=== PATIENT | female | born 1955 | race Caucasian/White ===

== ENCOUNTER → 2019-04-21 14:33 | Outpatient (POV) | payer MEDICARE, SELFPAY | DX: Z00.00 Encounter for general adult medical examination without abnormal findings (principal) ==

== ENCOUNTER 2023-06-20 07:58 | Observation (INO) | payer MEDICARE, SELFPAY ==
[2023-06-20] VITALS (11 sets, daily range): BP systolic 113–135; BP diastolic 60–71; PULSE 49–80; RESP 14–18; TEMP 36.7–36.8; O2SAT 95–100; BMI 43.9; BMI 43.7
--- NOTE | 2023-06-20 08:05 | XR_ITS ---
FINAL REPORT CLINICAL HISTORY: dyspnea COMPARISON: 06/07/2019 FINDINGS: SINGLE-VIEW CHEST The heart size is normal. The mediastinum is normal. The lungs are clear. There is no pneumothorax. IMPRESSION: No acute cardiopulmonary process. Reviewed, Interpreted and Dictated by Sung Ramos III, MD Transcribed by Annmarie Howard Authenticated and [facility]
--- NOTE | 2023-06-20 08:09 | HMH.EDGENADL ---
Discharge Plan Disposition Chief Complaint: PAIN Prescriptions Prescriptions: No Action Unobtainable Referrals Follow up/Referrals: Provider,Referral, [Primary Care Provider] - See instructions Clinical Impressions Clinical Impression: Hypoglycemia, Bug bites, Hip pain, right, Chronic malaise, Generalized weakness, Degenerative joint disease of both hips Discharge ED Provider: Shannan Cramer General Adult HPI General Chief complaint: PAIN Stated complaint: Pain Time Seen by Provider: 06/20/23 08:05 History of Present Illness HPI narrative: Patient is a 68-year-old female brought in by EMS. Because initially for altered mental status she was found to be hypoglycemic with a blood sugar of 37 they gave her glucagon and dextrose and her blood sugar resolved as well as her mental status. They state that her home was very poorly kept And that there were bedbugs and bugs extensively throughout the house. The patient states that for the last few weeks she has had dysuria and urgency as well as a cough some chills and has not felt well the point of needing to take Tylenol. She states that she has been largely bedbound and having difficult time taking care of her self. She also states she has had some dizziness and has had significant increase in urine output. Overall she states right now she does feel very lethargic and weak. She additionally complains of right hip pain no injuries that she knows of. Related Data Home Medications Medication Instructions Recorded Confirmed Unobtainable 06/20/23 06/20/23 Allergies Allergy/AdvReac Type Severity Reaction Status Date / Time naproxen [From NAPROSYN] Allergy Intermediate I-RASH Verified 06/07/19 11:17 cefaclor [From [facility]] Allergy Unknown Verified 06/07/19 11:17 ampicillin Allergy Verified 06/20/23 08:16 [facility] Disclaimer: The information contained in this section may have been updated after the patient was seen, as this information can be updated by other users. Social History Smoking Status: Former smoker alcohol intake: never current occupational status: other Travel in the last 8 weeks: None ROS Obtained: Yes All systems reviewed & no additional complaints except as documented Physical Exam General General appearance: alert Chest Chest inspection: Present normal inspection and symmetric chest wall rise Respiratory Respiratory exam: Present normal lung sounds bilaterally; Absent respiratory distress Cardiovascular Cardiovascular exam: Present regular rate; Absent tachycardia Abdominal Exam Abdominal exam: Present soft; Absent distention or tenderness Extremities Exam Extremities exam: Present other (Pain with range of motion of the right hip and internal/external rotation) Neurological Exam Neurological exam: Present alert and oriented X3 Skin Skin exam: Present other (Superficial skin excoriations from innumerable bug bites throughout her entire body) Medical Decision Making Jorge Inquiry Pt receiving controlled substance: No Jorge was queried for this patient: No Vital Signs: 06/20/23 07:58 06/20/23 08:12 06/20/23 08:35 Temperature 98.2 F Temperature Source Rectal Pulse Rate 55 L Pulse Rate [Radial] 62 Respiratory Rate 18 18 Blood Pressure 115/60 132/67 Blood Pressure [Right Arm] 115/60 Blood Pressure Mean 78 86 Blood Pressure Mean [Right Arm] 78 Blood Pressure Source [Right Arm] Automatic Cuff Blood Pressure Position [Right Arm] Sitting 02 Sat by Pulse Oximetry 97 98 Oxygen Delivery Method Room Air 06/20/23 09:00 06/20/23 09:30 06/20/23 10:00 Temperature Temperature Source Pulse Rate 61 59 L 64 Pulse Rate [Radial] Respiratory Rate 18 16 Blood Pressure 135/68 131/63 131/70 Blood Pressure [Right Arm] Blood Pressure Mean 84 88 Blood Pressure Mean [Right Arm] Blood Pressure Source [Right Arm] Blood Pressure Position [Right Arm] 02 Sat by Pulse Oxi
--- NOTE | 2023-06-20 08:11 | XR_ITS ---
FINAL REPORT CLINICAL HISTORY: right hip pain FINDINGS: Right hip Three views were obtained. There is no acute fracture or dislocation. There is severe degenerative changes of both hips. There is chronic calcification adjacent to the greater trochanter. IMPRESSION: Degenerative and chronic appearing findings. Reviewed, Interpreted and Dictated by Sung Ramos III, MD Transcribed by Annmarie Howard Authenticated and [facility]
[2023-06-20 08:12] LABS: Basophils % 0.1 % (0.1-2.0); Eosinophils % 0.3 % (0.1-12.0); Hematocrit 36.1 % (37.0-47.0); Hemoglobin 11.9 g/dL (12.2-16.2); Lymphocytes # 0.8 K/mm3 (0.7-4.5); Lymphocytes % 6.3 % (10-50); Mean Corpuscular HGB Conc 32.8 g/dL (31.8-35.4); Mean Corpuscular Hemoglobin 29.1 pg (27.0-31.2); Mean Corpuscular Volume 88.7 fl (81-99); Mean Platelet Volume 8.1 fl (7.4-10.4); Monocytes # 0.5 K/mm3 (0.1-1.0); Monocytes % 3.7 % (1.7-9.3); Neutrophils % 89.7 % (37.0-80.0); Platelet Count 233 K/mm3 (142-424); Red Blood Count 4.07 M/mm3 (4.20-5.40); Red Cell Distribution Width 14.5 % (11.5-17.5); White Blood Count 13.4 K/mm3 (4.8-10.8)
--- NOTE | 2023-06-20 08:16 | ECG_ITS ---
APPROVED REPORT Exam: Resting ECG HR:58 bpm ECG Measurements Heart Rate 58 AXES MA 204 P 69 QRSd 92 QRS -45 QT 373 T 41 QTc 370 Conclusion SINUS BRADYCARDIA PATTERN CONSISTENT WITH PULMONARY DISEASE LEFT ANTERIOR FASCICULAR BLOCK [QRS AXIS <= -45, QR IN I, RS IN II] ABNORMAL ECG UNCONFIRMED REPORT Electronically signed by : Irving Fenton MD 06/21/2023 11:03:07
[2023-06-20 08:17] LABS: MANUAL DIFFERENTIAL MANUAL DIFFERENTIAL (MANUAL DIFF)
[2023-06-20 08:19] LABS: Chloride 102 mmol/L (98-107); Potassium 3.4 mmoL/L (3.5-5.1); Sodium 139 mmol/L (136-145)
[2023-06-20 08:22] LABS: Alanine Aminotransferase 25 U/L (12-78); Albumin Level 3.6 g/dl (3.5-5.0); Albumin/Globulin Ratio 1.1 (1.1-1.8); Alkaline Phosphatase 55 U/L (38-126); Anion Gap 13.4 mEq/L (5-15); Aspartate Amino Transferase 26 U/L (14-36); Bilirubin,Total 0.4 mg/dl (0.2-1.3); Blood Urea Nitrogen 26 mg/dl (7-17); Calcium 8.8 mg/dl (8.4-10.2); Carbon Dioxide 27 mmol/L (22.0-30.0); Creatine Kinase 32 U/L (30-135); Creatinine Clearance Estimated 47 mL/min (50-200); Estimated Glomerular Filt Rate 62 ml/min (>60); GFR (African American) 76 ML/MIN (>60); Globulin 3.4 g/dL (1.3-3.2); Glucose 156 mg/dl (74-100); Magnesium 1.2 mg/dl (1.6-2.3)
[2023-06-20 08:30] LABS: Lactic Acid 1.8 mmol/L (0.7-2.1)
[2023-06-20 08:35] LABS: Coronavirus 19, PCR Not Detected (NotDetected); Influenza A, PCR Not Detected (NotDetected); Influenza B, PCR Not Detected (NotDetected)
[2023-06-20 08:35] LABS: Microscopic, Urine URINE MICROSCOPIC (MICROSCOPIC)
[2023-06-20 08:40] LABS: Appearance,Urine CLEAR (Clear); Bilirubin,Urine Negative (Negative); Blood, Urine TRACE-I (Negative); Color,Urine YELLOW (Yellow); Glucose,Urine (UA) Negative (Negative); Ketones,Urine Negative (Negative); Leukocyte Esterase,Urine Negative (Negative); Nitrate,Urine Negative (Negative); Protein,Urine Negative (Negative); Specific Gravity, Urine 1.015 (1.005-1.030); Urobilinogen,Urine 0.2 EU/dl (0.2)
--- NOTE | 2023-06-20 08:46 | PC.NURSE ---
Pt cleaned up with warm wash cloths and hibiclens. Pt placed in clean gown and socks, and provided with warm blankets and pillow. No other needs voiced at this time.
[2023-06-20 09:11] LABS: Lymphocytes % 10 % (10-50); Monocytes % 5 % (2-9); Neutrophils % 85 % (42-76); Platelet Estimate Normal; RBC Morphology Normal; Total Cells Counted 100
--- NOTE | 2023-06-20 09:18 | PC.NURSE ---
called rehab to notify of OT/PT consult
[2023-06-20 09:29] LABS: Bacteria,Urine Trace /lpf; RBC,Urine Occasional #/hpf (0-3); Squamous Epithelial Cell,Urine Occasional #/hpf (0-5); WBC,Urine Occasional #/hpf (0-3)
[2023-06-20 09:30] LABS: Thyroid Stimulating Hormone 0.39 uIU/mL (0.465-4.68); Troponin I < 0.01 ng/ml (0.00-0.034)
--- NOTE | 2023-06-20 09:33 | PC.NURSE ---
Dr. Cramer at BS to update pt on POC
--- NOTE | 2023-06-20 09:36 | PC.NURSE ---
OT and PT at for consult
--- NOTE | 2023-06-20 09:58 | PC.NURSE ---
spoke with care management post pt/ot eval to start placement process.
--- NOTE | 2023-06-20 10:42 | PC.NURSE ---
Called dietary to order a lunch tray for pt
--- NOTE | 2023-06-20 10:58 | HMH.PTEV ---
Physical Therapy Evaluation Rehab PT IP Evaluation Start: 06/20/23 09:16 Freq: ONCE Status: Active Protocol: Document 06/20/23 10:48 MARY (Rec: 06/20/23 10:58 PHORMARILEE [id number]) Subjective/History History History 68 yowf brought to [facility] ED via EMS due to hypoglycemia and AMS. She reports PMH of B LE pain, DM. She reports she lives with her and son , no steps to enter the home, and she is generally independent with all mobility at baseline. She reports, I'm supposed to use a walker to get around, but I have too much stuff to do. She presents in a state of very poor hygeine and reports she has been unable to care for herself at home for several days due to general feeling of beign unwell. Subjective Subjective She reports pain in B hips and back this am, she also reports significant fatigue with all mobility. New diagnosis of cancer in past 12 No months? Rehab PT IP Eval Objective Appearance Patient Behavior Appropriate Patient Orientation Person,Place,Time Difficulty following instructions mild Speech Pattern Clear Ambulation Patient Able to Ambulate Yes Ambulation Observation IP General Gait Pattern Observation Wide Based Gait,Shuffling Step Ambulation Distance (feet) 6 Ambulation Assistive Device Rolling Walker Ambulation Ability Contact Guard/Hand Hold Balance Ability to Arise Unable Sitting Balance Steady, safe Standing Balance Steady, wide stance Dynamic Sitting Balance Ability Fair Dynamic Standing Balance Ability Poor Transfers Bed Transfer Ability Maximum x 2 (75% assist) Chair Transfer Ability Minimal x 2 (25% assist) Sit to Stand Bed Transfer Ability Minimal x 2 (25% assist) Sit to Stand Chair Transfer Ability Moderate x 2 (50% assist) Rehab PT IP prob,goals,plan Problems Date of Evaluation: 06/20/23 Discharge Plan PT Discharge Plan Pt is currently most appropriate for rehab placement due to significant decrease in transfer ability. Without skilled interv
--- NOTE | 2023-06-20 11:05 | HMH.OTEV ---
OT Inpatient Evaluation Rehab OT IP Evaluation Start: 06/20/23 09:57 Freq: ONCE Status: Active Protocol: Document 06/20/23 09:57 VALENTIN (Rec: 06/20/23 11:04 VALENTIN [id number]) Rehab OT IP Assessment Subjective History Pt oriented x 3 on arrival. Pt agreeable to engage in therapy evaluation. Pt brought to ER on this date due to hypoglycemia and AMS. Patient is a 68-year-old female brought in by EMS. Because initially for altered mental status she was found to be hypoglycemic with a blood sugar of 37 they gave her glucagon and dextrose and her blood sugar resolved as well as her mental status. They state that her home was very poorly kept And that there were bedbugs and bugs extensively throughout the house. The patient states that for the last few weeks she has had dysuria and urgency as well as a cough some chills and has not felt well the point of needing to take Tylenol. She states that she has been largely bedbound and having difficult time taking care of her self. She also states she has had some dizziness and has had significant increase in urine output. Overall she states right now she does feel very lethargic and weak. She additionally complains of right hip pain no injuries that she knows of. Prior to being bedbound, pt claims she was able to complete ADLs and IADLs. She did report at times she needed assistance with lower body dressing. However, since she has been ill the past few weeks she has required assistance with everything.
--- NOTE | 2023-06-20 11:34 | PC.NURSE ---
Report given to Brynn on Med Surg.
--- NOTE | 2023-06-20 11:34 | PC.NURSE ---
received report from MATT Kern in ED
--- NOTE | 2023-06-20 11:37 | EXP.HP ---
History of Present Illness *Admission Date: 06/20/23 *Reason for visit:: Hip Pain *History of present illness: This is a 68-year-old female that is brought by EMS to [facility] emergency department for concerns of hip pain. Her past medical history is significant for degenerative joint disease of hips bilaterally, BMI 44, diabetes and HFpEF. She has identified loss of mobility and endorses frailty. The patient has not identified foot drop, falls or injury. EMS identified concerns with social determinants of health upon arrival to her home. Case management and PT were consulted out of the ED. PT identified inability to mobilize. ED imaging identified severe degenerative joint disease of both hips. [facility] Medical History (Updated 06/20/23 @ 13:03 by Erick Redd MD) (HFpEF) heart failure with preserved ejection fraction Cervical cancer Degenerative joint disease of both hips Diabetes mellitus, type 2 History of gastroesophageal reflux (GERD) Hyperlipidemia Hypertension Surgical History (Updated 06/20/23 @ 12:52 by Brynn Tapia RN) History of cholecystectomy Family History (Updated 06/20/23 @ 12:52 by Brynn Tapia RN) Other No significant family history Social History (Updated 06/20/23 @ 10:55 by Shannan Cramer MD) Smoking Status: Former smoker alcohol intake: never current occupational status: other Travel in the last 8 weeks: None Review of Systems Constitutional Constitutional: Reports fatigue and Reports weakness *Cardiovascular Cardiovascular: Denies chest pain and Denies chest pain at rest *Respiratory Respiratory: Denies cough *Gastrointestinal Gastrointestinal: Denies loose stools, Denies nausea and Denies vomiting *Neurologic Neurologic: Reports weakness Endocrine Endocrine: Reports fatigue Meds Home Medications and Allergies Home Medications Medication Instructions Recorded Confirmed Type atorvastatin 20 mg tablet 20 mg PO DAILY Cholesterol 06/20/23 06/20/23 History furosemide 40 mg tablet 40 mg PO DAILY Fluid 06/20/23 06/20/23 History lisinopril 20 mg tablet 20 mg PO DAILY High Blood Pressure 06/20/23 06/20/23 History metformin 500 mg tablet 500 mg PO DAILY Diabetes 06/20/23 06/20/23 History trospium 20 mg tablet 20 mg PO BID Overactive Bladder 06/20/23 06/20/23 History New Prescriptions to Start Prescriptions: Allergies Allergy/AdvReac Type Severity Reaction Status Date / Time naproxen [From NAPROSYN] Allergy Intermediate I-RASH Verified 06/20/23 12:37 cefaclor [From [facility]] Allergy Unknown Verified 06/20/23 12:37 ampicillin Allergy Verified 06/20/23 12:37 Exam Data for Last 24 hours Vital signs and Labs for Last 24 Hours: Temp Pulse Resp BP Pulse Ox O2 Del Method 98.2 F 49 L 14 132/66 97 Room Air 06/20/23 07:58 06/20/23 10:30 06/20/23 10:30 06/20/23 10:30 06/20/23 10:30 06/20/23 10:30 Laboratory Results - last 24 hr 06/20/23 07:58: WBC 13.4 H, RBC 4.07 L, Hgb 11.9 L, Hct 36.1 L, MCV 88.7, MCH 29.1, MCHC 32.8, RDW 14.5, Plt Count 233, MPV 8.1, Neut % (Auto) 89.7 H, Lymph % (Auto) 6.3 L, [place] % (Auto) 3.7, Eos % (Auto) 0.3, Baso % (Auto) 0.1, Neut # (Auto) 12.0 H, Lymph # (Auto) 0.8, [place] # (Auto) 0.5, Eos # (Auto) 0.0, Baso # (Auto) 0.0, Total Counted 100, Neutrophils % (Manual) 85 H, Lymphocytes % (Manual) 10, Monocytes % (Manual) 5, Platelet Estimate Normal, RBC Morphology Normal, Sodium 139, Potassium 3.4 L, Chloride 102, Carbon Dioxide 27, Anion Gap 13.4, BUN 26 H, Creatinine 0.90, Estimated Creat Clear 47, Estimated GFR 62, Est GFR ( Amer) 76, Glucose 156 H, Lactate 1.8, Calcium 8.8, Phosphorus 3.0, Magnesium 1.2 L, Total Bilirubin 0.4, AST 26, ALT 25, Alkaline Phosphatase 55, Total Creatine Kinase 32, Troponin I < 0.01, Total Protein 7.0, Albumin 3.6, Globulin 3.4 H, Albumin/Globulin Ratio 1.1, TSH 0.39 L 06/20/23 08:18: SARS-CoV-2 (PCR) Not detected, Influenza A Untype (PCR) Not detected, Influenza Type B
--- NOTE | 2023-06-20 11:43 | HMH.PHAINT1 ---
Pharmacy Intervention Comments: MEDICATION RECONCILIATION COMPLETED ON PATIENT USING EXTERNAL FILL HISTORY FROM PHARMACY. -YOSEPH CHAMPION, TODDD
--- NOTE | 2023-06-20 12:02 | PC.NURSE ---
arrived by stretcher from ED
[2023-06-20 12:21] LABS: Free T4 (Free Thyroxine) 1.67 ng/dl (0.78-2.19)
[2023-06-20 12:35] LABS: Hemoglobin A1C 5.7 % (4.0-6.0)
--- NOTE | 2023-06-20 13:05 | CA_ITS ---
APPROVED REPORT EXAM: Comprehensive 2D, Doppler, and color-flow Echocardiogram Steam Shovel Operator: Tania Whitehead RVT Ht: 5 ft 4 in Wt: 256lbs BSA: 2.17 BP: 132/66 mmHg Indications: CHF,BRADYCARDIA,HTN,HLD,EX SMOKER,OBESITY,GERD TDS-PT BODY HABITUS 2D Dimensions LVOT 2.03 cm (M/F) 1.5-2.5 LA Volume 62.70 mL LA Volume Index 28.89 mL/m2 (M/F) 16-34 M-Mode Dimensions RVDd 2.05 cm (0.9-2.6) LA Diam 4.55 cm (1.9-4.0) LVDd 5.66 cm (3.5-5.7) Ao Diam 2.92 cm (2.0-3.7) LVDs 3.46 cm (3.5-5.7) IVSd 0.84 cm (0.6-1.1) PWd 0.57 cm (0.6-1.1) EF (Teich) 68.60% FS 38.90% EDV (Teich) 157.50 mL TAPSE 2.15 (<1.7) ESV (Teich) 49.50 mL LV Diastology E Decel Time 170.00 (160-240 msec) E/A Ratio 1.1 MED E' 8.70 (< 7 cm/sec) E'/MED E' Ratio 9.87 (>14) LAT E' 9.30 (<10 cm/sec) E/LAT E' Ratio 9.24 (>14) Aortic Valve LVOT Max 91.00 (70-110 cm/s) LVOT VTI 17.22 cm AoV Peak Jose Luis. 170.00 (50-130 cm/s) AO Peak GR. 11.70 mmHg AO Mean GR. 6.20 (<5 mmHg) AO VTI 38.20 (18-25 cm) NATHALY (VTI) 1.46 (2.5-4.5 cm2) Mitral Valve MV E Max Jose Luis. 86.00 (40-130 cm/s) MV A Velocity 80.00 (40-130 cm/s) E/A Ratio 1.07 MV Decel. Time 170.00 (160-240 ms) MV PHT 50.00 ms Pulmonary Valve PV Peak Velocity 109.00 (50-150 cm/s) Tricuspid Valve TR P. Velocity 243.00 cm/s RAP Estimate 10.00 mmHg RVSP 33.60 mmHg Left Ventricle The left ventricle is normal size. The left ventricular systolic function is normal. The left ventricular ejection fraction is within the normal range. There is normal left ventricular wall thickness. There is normal LV segmental wall motion. The left ventricular diastolic function is normal. LVEF is 55%. Right Ventricle The right ventricle is mildly dilated. The right ventricular systolic function is normal. Atria The left atrium size is normal. The right atrium size is normal. There is no Doppler evidence of interatrial shunt. Aortic Valve The aortic valve is mildly thickened. There is no aortic valvular stenosis. No aortic regurgitation is present. Mitral Valve Mild mitral annular calcification. The mitral valve is mildly thickened. No evidence of mitral valve stenosis. Trace mitral regurgitation. Tricuspid Valve The tricuspid valve leaflets are thin and pliable. Trace tricuspid regurgitation. RVSP is normal. Pulmonic Valve The pulmonary valve is normal in structure. Trace pulmonic regurgitation. Great Vessels The aortic root is normal in size. The ascending aorta is normal in size. IVC is normal in size and collapses >50% with inspiration. Pericardium There is no pericardial effusion. Electronically signed by : Irlanda Winter MD 06/20/2023 18:19:35
--- NOTE | 2023-06-20 13:05 | CT_ITS ---
FINAL REPORT TECHNIQUE: Axial imaging of the lumbar spine was obtained without contrast. Sagittal and coronal reformatted images were also obtained and reviewed. This study was performed with techniques to keep radiation doses as low as reasonably achievable (ALARA). Individualized dose reduction techniques using automated exposure control or adjustment of mA and/or kV according to the patient's size were employed. CLINICAL HISTORY: Gait Disturbance COMPARISON: None FINDINGS: There is no fracture. The vertebral alignment is normal. There is vacuum phenomenon present at the L4-5 and L5-S1 levels..There is no evidence of significant central canal stenosis. T12-L1: An annular bulge is present with osteophytes and mild right neural foraminal narrowing. L1-L2: An annular bulge is present with osteophytes and facet osteoarthropathy. There is mild bilateral neural foraminal narrowing. L2-L3: An annular bulge is present with osteophytes and facet osteoarthropathy. There is mild bilateral neural foraminal narrowing at this level. L3-L4: There is an annular bulge present with osteophytes and facet osteoarthropathy. There is moderate bilateral neural foraminal narrowing at this level. L4-L5: An annular bulge is present with osteophytes and facet osteoarthropathy. There is a left foraminal disc protrusion that produces left L5 nerve root impingement, moderate right, and severe left neural foraminal narrowing. L5-S1: An annular bulge is present with osteophytes and facet osteoarthropathy. There is a left paracentral and foraminal disc protrusion, with left S1 nerve root impingement, and severe bilateral neural foraminal narrowing. IMPRESSION: Multilevel degenerative change, most severe at the L4-5 and L5-S1 levels.. Reviewed, Interpreted and Dictated by Sung Ramos III, MD Transcribed by Jaqueline Carrion Authenticated and [facility]
--- NOTE | 2023-06-20 16:04 | DIET.NUTRFU ---
Spoke to patient today after lunch and she requested chopped meat. She has multiple missing teeth and had a hard time cutting chicken for lunch. According to patient she eats soft food and easily prepared foods at home, soups/sandwich and TV dinners. Patient reported weight loss of 30# in thge past 2wks. Limited history to review. Will monitor po intake during stay. She lives at home with and son who works at night. Son does not help with any of meal prep and just had foot sx and can help with household responsibilities.
--- NOTE | 2023-06-20 16:17 | PC.NURSE ---
16:00 FSBG of 45 in right hand. 50% Dextrose injection 25g given. Recheck of Left hand and the FSBG is 165.
[2023-06-20 16:22] LABS: POC Glucose,Bedside 165 (70-110)
--- NOTE | 2023-06-20 16:25 | CARE MANAGER ---
Addendum entered by [facility] 06/25/23 14:11: Patient stated that she will need a rolling walker at home. Patient information/order will be faxed to [facility]. Addendum entered by [facility] 06/25/23 13:27: Shira w/ [facility] stated that home health services will begin this week for this patient. Addendum entered by [facility] 06/25/23 11:23: [facility] is NOT in network w/ patient's insurance. Patient information/order will be faxed to [facility]. Addendum entered by [facility] 06/25/23 10:19: The plan for this patient is to discharge home today. Patient information/order will be faxed to [facility] (patient preference) once medically stable for discharge. Patient is agreeable w/ discharge plans. Addendum entered by [facility] [place] 06/24/23 09:56: Patient/family are not interested in placement at [facility] or any other facility at this time. After lengthy conversations w/ patient and her the plan is to return back home w/ and family assistance. I did speak w/ patient and regarding home health services and informed them this could potentially be an issue due to insect issues at home. I will attempt to set patient up w/ home health services at time of discharge. Per MD patient could be ready for discharge tomorrow pending repeat lab work. Addendum entered by Roxann [place] 06/23/23 16:23: wrong patient patient's daughter did call regarding discharge questions: I attempted to contact daughter back w/ no answer and full at this time . Addendum entered by Roxann [place] 06/23/23 16:22: Patient's daughter did call regarding discharge questions: I attempted to contact daughter back w/ no answer and full at this time. Addendum entered by Roxann [place] 06/23/23 14:33: Per family request patient information has been faxed to [facility]. Addendum entered by [facility] 06/23/23 10:55: Patient information has been faxed to [facility] per 's request. I have also updated that [facility] has started a precert. 's contact number is [phone]. Addendum entered by Roxann Gee 06/23/23 09:48: Khloe rolle/ [facility] stated that she will start precert this AM. Addendum entered by Roxann Gee 06/23/23 09:42: Barbi rolle/ [facility] stated that she does not have any beds available at this time. Khloe rolle/ [facility] is reviewing referral and will reach out to family this AM. Family expressed an interest in placement at [facility] in [place]: I have left a SAUL rolle/ Sue to return my phone call. Original Note: I met with patient to discuss discharge planning needs today. Patient Choice signed for [facility] and [facility]. I faxed clinical to all facilities. Nino @ [facility] states that they are not in network, Clarisse @ [facility] notified us this afternoon that they were unable to accept. We are still waiting on [facility] and [facility] to let us know of bed availability.
[2023-06-20 20:49] LABS: POC Glucose,Bedside 111 (70-110)
[2023-06-21 04:00] VITALS: BP 126/66; PULSE 71; RESP 17; TEMP 36.8; O2SAT 99; BMI 44.1
--- NOTE | 2023-06-21 04:09 | PC.NURSE ---
Pt is alert and oriented x4 and is currently on RA. Pt has complained of moderate pain this shift, staff have attempted to provide comfort with repositioning and mild to moderate pain relievers this shift. Pt IV was leaking and new IV was started in the right forearm. Pt denies needs and pain at this time.
[2023-06-21 04:37] LABS: POC Glucose,Bedside 144 (70-110)
[2023-06-21 07:38] VITALS: BP 105/53; PULSE 70; RESP 20; TEMP 36.6; O2SAT 96
--- NOTE | 2023-06-21 08:20 | PC.NURSE ---
0818 spoke with Alfred in pharmacy in regards to the medication interaction when Egg allergy was added. (Docusate and Atorvastatin) per Alfred street to proceed with meds, primary RN notified.
[2023-06-21 08:47] LABS: Chloride 108 mmol/L (98-107); Sodium 137 mmol/L (136-145)
[2023-06-21 08:51] LABS: Blood Urea Nitrogen 11 mg/dl (7-17); Calcium 8.7 mg/dl (8.4-10.2); Carbon Dioxide 26 mmol/L (22.0-30.0); Creatinine Clearance Estimated 47 mL/min (50-200); Estimated Glomerular Filt Rate 83 ml/min (>60); GFR (African American) 101 ML/MIN (>60); Glucose 137 mg/dl (74-100); Magnesium 1.9 mg/dl (1.6-2.3)
[2023-06-21 08:58] LABS: Prothrombin Time 10.8 seconds (10.1-12.5)
[2023-06-21 09:08] VITALS: BP 125/69; PULSE 73
--- NOTE | 2023-06-21 09:25 | PC.NURSE ---
we turned and repositioned pt. She is alert and appropriate this am. pure wick in place. pts bottom is pink and intact. redness and excoriation under folds. She has multiple scabs through out her body.
[2023-06-21 09:29] LABS: NT Pro Brain Natriuretic Pep. 255 pg/mL (0-125)
[2023-06-21 10:18] LABS: Basophils % 0.5 % (0.1-2.0); Eosinophils # 0.3 K/mm3 (0.0-0.4); Eosinophils % 3.8 % (0.1-12.0); Hematocrit 33.7 % (37.0-47.0); Hemoglobin 11.3 g/dL (12.2-16.2); Lymphocytes # 2.2 K/mm3 (0.7-4.5); Lymphocytes % 25.2 % (10-50); Mean Corpuscular HGB Conc 33.4 g/dL (31.8-35.4); Mean Corpuscular Hemoglobin 29.5 pg (27.0-31.2); Mean Corpuscular Volume 88.2 fl (81-99); Mean Platelet Volume 8.4 fl (7.4-10.4); Monocytes # 0.7 K/mm3 (0.1-1.0); Monocytes % 7.4 % (1.7-9.3); Neutrophils # 5.6 K/mm3 (1.8-7.8); Neutrophils % 63.1 % (37.0-80.0); Platelet Count 214 K/mm3 (142-424); Red Blood Count 3.82 M/mm3 (4.20-5.40); Red Cell Distribution Width 14.7 % (11.5-17.5); White Blood Count 8.8 K/mm3 (4.8-10.8)
--- NOTE | 2023-06-21 10:19 | EXP.ACUTE.PN ---
Subjective *Date: 06/21/23 *Time: 10:23 Interval history: Patient with no chest pain, nausea or vomiting. Complaining of some mild abdominal discomfort. Has not had a bowel movement since before admission. Medical Exam Vital signs and Labs for Last 24 Hours: Vital Signs Temp Pulse Pulse Resp BP BP Pulse Ox 06/21/23 08:00 06/21/23 09:08 73 125/69 06/21/23 07:38 98 F 70 20 105/53 L 96 06/21/23 06:29 06/21/23 05:00 06/21/23 04:00 98.2 F 71 17 126/66 99 06/21/23 02:36 06/21/23 01:00 06/20/23 22:43 06/20/23 21:00 06/20/23 20:00 06/20/23 19:43 98.3 F 80 17 113/68 95 06/20/23 16:42 06/20/23 16:29 06/20/23 15:46 98.1 F 60 18 126/65 100 06/20/23 13:12 98 06/20/23 13:12 06/20/23 12:23 06/20/23 12:00 98.2 F 62 16 116/71 06/20/23 10:30 49 L 14 132/66 97 O2 Del Method 06/21/23 08:00 Room Air 06/21/23 09:08 06/21/23 07:38 Room Air 06/21/23 06:29 Room Air 06/21/23 05:00 Room Air 06/21/23 04:00 Room Air 06/21/23 02:36 Room Air 06/21/23 01:00 Room Air 06/20/23 22:43 Room Air 06/20/23 21:00 Room Air 06/20/23 20:00 Room Air 06/20/23 19:43 Room Air 06/20/23 16:42 Room Air 06/20/23 16:29 Room Air 06/20/23 15:46 Room Air 06/20/23 13:12 Room Air 06/20/23 13:12 Room Air 06/20/23 12:23 Room Air 06/20/23 12:00 Room Air 06/20/23 10:30 Room Air Intake and Output 06/20/23 06/21/23 06/21/23 23:59 07:59 15:59 Intake Total 360 / 770 780 / 780 Output Total 800 / 1550 800 / 800 Balance -440 / -780 - Intake: Intake, Oral Amount 360 / 720 780 / 780 Output: Output, Urine Amount 800 / 1550 800 / 800 Other: Number of Voids 0 Number of Unmeasured Voids 0 1 Weight 116 kg 117.48 kg Patient Weight 06/21/23 23:59 Weight 117.48 kg Laboratory Results - last 24 hr 06/20/23 07:58: Hemoglobin A1c 5.7, Free T4 1.67 06/20/23 16:14: POC Glucose 165 H 06/20/23 20:27: POC Glucose 111 H 06/21/23 04:24: POC Glucose 144 H 06/21/23 08:20: PT 10.8, INR 1.00, Sodium 137, Potassium 5.0 D, Chloride 108 H, Carbon Dioxide 26, Anion Gap 8.0, BUN 11 D, Creatinine 0.70 D, Estimated Creat Clear 47, Estimated GFR 83, Est GFR ( Amer) 101 D, Glucose 137 H, Calcium 8.7, Magnesium 1.9 D, NT-Pro-B Natriuret Pep 255 H I & O for Labs for Last 24 Hours: Intake & Output 06/18/23 06/19/23 06/20/23 06/21/23 23:59 23:59 23:59 23:59 Intake Total 410 / 770 780 / 780 Output Total 1550 / 1550 800 / 800 Balance -1140 / -780 - Weight 116 kg 117.48 kg Constitutional: Present no acute distress, morbidly obese, chronically ill appearing and cooperative Head: Present atraumatic and normocephalic ENT: Present mucous membranes moist Comment:: Poor dentition Neck: Present normal inspection Respiratory: Present normal respiratory effort; Absent rhonchi, wheezes or crackles Cardiac: Present Reg Rate and Rhythm GI: Present soft and normal bowel sounds; Absent distention or tenderness Extremities: Present normal inspection, full ROM and tenderness (Right lower extremity from ankle to knee, no swelling or warmth); Absent edema Skin: Present intact; Absent erythema Comment:: Numerous scabbed lesions on extremities and face. Concerning for scratched bug bites Neuro: Present Grossly Intact, alert, awake, oriented x 3 and moves all extremities Assessment and Plan *Assessment and plan (1) Degenerative joint disease of both hips: Status: Acute Qualifiers: Osteoarthritis type: primary Qualified Code(s): M16.0 - Bilateral primary osteoarthritis of hip Category: Medical Code(s): M16.0 - Bilateral primary osteoarthritis of hip (2) Gait disorder: Status: Acute Category: Medical Code(s): R26.9 - Unspecified abnormalities of gait and mobility (3) (HFpEF) heart failure with preserved eje
[2023-06-21 16:00] VITALS: BP 103/52; PULSE 64; RESP 18; TEMP 36.6; O2SAT 98
[2023-06-21 18:36] LABS: POC Glucose,Bedside 132 (70-110)
[2023-06-21 19:45] VITALS: BP 91/51; PULSE 74; RESP 18; TEMP 36.9; O2SAT 99
[2023-06-22 01:25] LABS: POC Glucose,Bedside 114 (70-110)
[2023-06-22 04:00] VITALS: BP 111/56; PULSE 78; RESP 17; TEMP 37.1; O2SAT 97; BMI 43.1
--- NOTE | 2023-06-22 06:12 | PC.NURSE ---
notified cecy cowart of positive blood cx results
[2023-06-22 06:34] LABS: POC Glucose,Bedside 107 (70-110)
[2023-06-22 07:32] VITALS: BP 90/62; PULSE 63; RESP 17; TEMP 37.1; O2SAT 96
--- NOTE | 2023-06-22 09:02 | EXP.ACUTE.PN ---
Subjective *Date: 06/22/23 *Time: 09:52 Interval history: No issues overnight. Stable on room air. Tolerating p.o. intake. Requesting her toenails be trimmed today. Denies any chest pain or shortness of breath. No nausea or vomiting. Had a bowel movement yesterday. Medical Exam Vital signs and Labs for Last 24 Hours: Vital Signs Temp Pulse Resp BP Pulse Ox O2 Del Method 06/22/23 07:32 98.7 F 63 17 90/62 L 96 Room Air 06/22/23 04:00 98.8 F 78 17 111/56 L 97 Room Air 06/22/23 06:51 Room Air 06/22/23 05:00 Room Air 06/22/23 03:00 Room Air 06/21/23 20:00 Room Air 06/22/23 01:00 Room Air 06/21/23 23:00 Room Air 06/21/23 21:00 Room Air 06/21/23 19:45 98.5 F 74 18 91/51 L 99 Room Air 06/21/23 17:00 Room Air 06/21/23 15:00 Room Air 06/21/23 16:00 97.8 F 64 18 103/52 L 98 Room Air 06/21/23 13:00 Room Air 06/21/23 11:00 Room Air 06/21/23 09:08 73 125/69 Intake and Output 06/21/23 06/22/23 06/22/23 23:59 07:59 15:59 Intake Total 470 / 2020 540 / 540 Output Total 902 / 4752 725 / 1525 800 / 1525 Balance -432 / -2732 -185 / -985 -800 / -985 Intake: Intake, Oral Amount 470 / 2019 540 / 540 Output: Output, Urine Amount 902 / 4752 725 / 1525 800 / 1525 Other: Number of Voids 650 1 Weight 114.532 kg Patient Weight 06/22/23 23:59 Weight 114.532 kg Laboratory Results - last 24 hr 06/21/23 08:20: WBC 8.8 D, RBC 3.82 L, Hgb 11.3 L, Hct 33.7 L, MCV 88.2, MCH 29.5, MCHC 33.4, RDW 14.7, Plt Count 214, MPV 8.4, Neut % (Auto) 63.1, Lymph % (Auto) 25.2, Bracken % (Auto) 7.4, Eos % (Auto) 3.8, Baso % (Auto) 0.5, Neut # (Auto) 5.6, Lymph # (Auto) 2.2, Bracken # (Auto) 0.7, Eos # (Auto) 0.3, Baso # (Auto) 0.0, PT 10.8, INR 1.00, NT-Pro-B Natriuret Pep 255 H 06/21/23 18:11: POC Glucose 132 H 06/21/23 19:56: POC Glucose 114 H 06/22/23 06:02: POC Glucose 107 I & O for Labs for Last 24 Hours: Intake & Output 06/19/23 06/20/23 06/21/23 06/22/23 23:59 23:59 23:59 23:59 Intake Total 410 / 770 1720 / 2020 540 / 540 Output Total 1550 / 1550 4752 / 4752 1525 / 1525 Balance -1140 / -780 -3032 / -2732 -985 / -985 Weight 116 kg 117.48 kg 114.532 kg Microbiology Reports for the Last 24 Hours: Microbiology 06/20/23 08:34 Blood Blood Culture - Preliminary Constitutional: Present no acute distress, morbidly obese, chronically ill appearing and cooperative Head: Present atraumatic and normocephalic ENT: Present mucous membranes moist Comment:: Poor dentition Neck: Present normal inspection Respiratory: Present normal respiratory effort; Absent rhonchi, wheezes or crackles Cardiac: Present Reg Rate and Rhythm GI: Present soft and normal bowel sounds; Absent distention or tenderness Extremities: Present normal inspection, full ROM and tenderness (Right lower extremity from ankle to knee, no swelling or warmth); Absent edema Skin: Present intact; Absent erythema Comment:: Numerous scabbed lesions on extremities and face. Concerning for scratched bug bites Neuro: Present Grossly Intact, alert, awake, oriented x 3 and moves all extremities Assessment and Plan *Assessment and plan (1) Degenerative joint disease of both hips: Status: Acute Qualifiers: Osteoarthritis type: primary Qualified Code(s): M16.0 - Bilateral primary osteoarthritis of hip Category: Medical Code(s): M16.0 - Bilateral primary osteoarthritis of hip (2) Gait disorder: Status: Acute Category: Medical Code(s): R26.9 - Unspecified abnormalities of gait and mobility (3) (HFpEF) heart failure with preserved ejection fraction: Status: Acute Category: Medical Code(s): I50.30 - Unspecified diastolic (congestive) heart failure (4) Diabetes mellitus, type 2: Status: Chronic Qualifiers: Diabetes mellitus halfway insulin use: without halfway use Diabetes rambo
[2023-06-22 11:21] LABS: POC Glucose,Bedside 136 (70-110)
[2023-06-22 15:49] VITALS: BP 140/65; PULSE 76; RESP 16; TEMP 37; O2SAT 95
[2023-06-22 19:55] VITALS: BP 125/71; PULSE 91; RESP 17; TEMP 36.8; O2SAT 92
[2023-06-22 20:43] LABS: POC Glucose,Bedside 179 (70-110)
[2023-06-23 03:58] VITALS: BP 91/57; PULSE 74; RESP 18; TEMP 36.6; O2SAT 96; BMI 43.1
--- NOTE | 2023-06-23 04:31 | PC.NURSE ---
Patient has slept intermittently throughout shift. Tolerating RA with O2 92-96%. Patient voiced no c/o of pain thus far in shift. Scabs and bruising present throughout body.
[2023-06-23 05:52] LABS: POC Glucose,Bedside 137 (70-110)
[2023-06-23 08:00] VITALS: BP 146/74; PULSE 86; RESP 20; TEMP 36.8; O2SAT 95
[2023-06-23 11:05] LABS: POC Glucose,Bedside 116 (70-110)
--- NOTE | 2023-06-23 13:57 | EXP.ACUTE.PN ---
Subjective *Date: 06/23/23 *Time: 13:57 Interval history: No issues overnight. Stable on room air. Tolerating p.o. intake. States she is feeling somewhat better today. Able to move her feet. Denies significant pain in her legs but still having pain in her hips. Denies any chest pain or shortness of breath. No nausea or vomiting. Medical Exam Vital signs and Labs for Last 24 Hours: Vital Signs Temp Pulse Resp BP Pulse Ox O2 Del Method 06/23/23 13:00 Room Air 06/23/23 10:51 Room Air 06/23/23 08:00 Room Air 06/23/23 09:00 Room Air 06/23/23 08:00 98.2 F 86 20 146/74 H 95 Room Air 06/23/23 06:45 Room Air 06/23/23 03:58 98 F 74 18 91/57 L 96 06/23/23 05:00 Room Air 06/23/23 03:00 Room Air 06/23/23 01:00 Room Air 06/22/23 23:00 Room Air 06/22/23 21:00 Room Air 06/22/23 20:00 Room Air 06/22/23 19:55 98.3 F 91 H 17 125/71 92 L Room Air 06/22/23 17:00 Room Air 06/22/23 15:49 98.6 F 76 16 140/65 95 Room Air 06/22/23 15:00 Room Air Intake and Output 06/22/23 06/23/23 06/23/23 23:59 07:59 15:59 Intake Total 470 / 1720 240 / 480 240 / 480 Output Total 2024 900 / 900 Balance -30 / -305 240 / -420 -660 / -420 Intake: Intake, Oral Amount 470 / 1720 240 / 480 240 / 480 Output: Output, Urine Amount 2024 900 / 900 Other: Number of Unmeasured Voids 1 Weight 114.532 kg Patient Weight 06/23/23 23:59 Weight 114.532 kg Laboratory Results - last 24 hr 06/22/23 20:29: POC Glucose 179 H 06/23/23 05:46: POC Glucose 137 H 06/23/23 10:57: POC Glucose 116 H I & O for Labs for Last 24 Hours: Intake & Output 06/20/23 06/21/23 06/22/2323 23:59 23:59 23:59 23:59 Intake Total 410 / 770 1719 1480 / 1720 480 / 480 Output Total 1550 / 1550 4752 / 4752 2024 900 / 900 Balance -1140 / -780 -3032 / -2732 -545 / -305 -420 / -420 Weight 116 kg 117.48 kg 114.532 kg 114.532 kg Constitutional: Present no acute distress, morbidly obese, chronically ill appearing and cooperative Head: Present atraumatic and normocephalic ENT: Present mucous membranes moist Comment:: Poor dentition Neck: Present normal inspection Respiratory: Present normal respiratory effort; Absent rhonchi, wheezes or crackles Cardiac: Present Reg Rate and Rhythm GI: Present soft and normal bowel sounds; Absent distention or tenderness Extremities: Present normal inspection, full ROM and tenderness; Absent edema Skin: Present intact; Absent erythema Comment:: Numerous scabbed lesions on extremities and face. Concerning for scratched bug bites Neuro: Present Grossly Intact, alert, awake, oriented x 3 and moves all extremities Assessment and Plan *Assessment and plan (1) Degenerative joint disease of both hips: Status: Acute Qualifiers: Osteoarthritis type: primary Qualified Code(s): M16.0 - Bilateral primary osteoarthritis of hip Category: Medical Code(s): M16.0 - Bilateral primary osteoarthritis of hip (2) Gait disorder: Status: Acute Category: Medical Code(s): R26.9 - Unspecified abnormalities of gait and mobility (3) (HFpEF) heart failure with preserved ejection fraction: Status: Acute Category: Medical Code(s): I50.30 - Unspecified diastolic (congestive) heart failure (4) Diabetes mellitus, type 2: Status: Chronic Qualifiers: Diabetes mellitus moth exterminator insulin use: without moth exterminator use Diabetes mellitus complication status: without complication Qualified Code(s): E11.9 - Type 2 diabetes mellitus without complications Category: Medical Code(s): E11.9 - Type 2 diabetes mellitus without complications (5) Hypertension: Status: Chronic Qualifiers: Hypertension type: primary hypertension Qualified Code(s): I10 - Essential (primary) hypertension Category: Medical Code
--- NOTE | 2023-06-23 15:24 | PC.NURSE ---
PT IS SITTING UP IN THE CHAIR. ALERT AND ORIENTED X4. EATING AND DRINKING WELL. LUNG SOUNDS DIMINISHED. ABDOMEN SOFT/NON TENDER WITH HYPOACTIVE BOWEL SOUNDS. PT PARTICIPATED WITH PHYSICAL THERAPY THIS SHIFT. PT AMBULATED A FEW STEPS IN THE ROOM WITH WALKER. SCATTERED SCABS NOTED T/O BODY. REDNESS NOTED TO ABDOMINAL FOLDS. BATH AND LINEN CHANGE THIS SHIFT. WILL CONTINUE TO MONITOR.
[2023-06-23 15:50] VITALS: BP 105/50; PULSE 70; RESP 20; TEMP 36.6; O2SAT 97
[2023-06-23 16:18] LABS: POC Glucose,Bedside 122 (70-110)
[2023-06-23 20:00] VITALS: BP 101/57; PULSE 75; RESP 18; TEMP 36.4; O2SAT 95
[2023-06-24 04:00] VITALS: BP 91/49; PULSE 69; RESP 18; TEMP 36.5; O2SAT 95; BMI 43.4
--- NOTE | 2023-06-24 04:23 | PC.NURSE ---
Pt is alert and oriented x4, Pt is on RA and has complained of pain this shift with pain medication given for relief. Pt has complained of not getting her bath and having her linens changed on the previous shift. Tech x2 gave pt a full bedbath, performed skin care, and changed pt linens this shift, Pt previous scab came open during bathing and removing socks and I applied a bandage to the right side of the right lower extremity. Pt is curently awaiting placement for a rehab facility. Pt denies needs at this time.
[2023-06-24 04:42] LABS: POC Glucose,Bedside 135 (70-110)
[2023-06-24 05:30] LABS: POC Glucose,Bedside 122 (70-110)
[2023-06-24 06:00] LABS: Basophils % 0.5 % (0.1-2.0); Eosinophils # 0.4 K/mm3 (0.0-0.4); Eosinophils % 4.5 % (0.1-12.0); Hematocrit 35.6 % (37.0-47.0); Hemoglobin 11.8 g/dL (12.2-16.2); Lymphocytes # 1.8 K/mm3 (0.7-4.5); Lymphocytes % 22.3 % (10-50); Mean Corpuscular HGB Conc 33.3 g/dL (31.8-35.4); Mean Corpuscular Hemoglobin 29.3 pg (27.0-31.2); Mean Corpuscular Volume 88.2 fl (81-99); Mean Platelet Volume 7.8 fl (7.4-10.4); Monocytes # 0.6 K/mm3 (0.1-1.0); Neutrophils # 5.2 K/mm3 (1.8-7.8); Neutrophils % 64.6 % (37.0-80.0); Platelet Count 266 K/mm3 (142-424); Red Blood Count 4.03 M/mm3 (4.20-5.40); Red Cell Distribution Width 14.8 % (11.5-17.5)
[2023-06-24 06:04] LABS: Chloride 99 mmol/L (98-107); Potassium 5.5 mmoL/L (3.5-5.1); Sodium 134 mmol/L (136-145)
[2023-06-24 06:07] LABS: Anion Gap 10.5 mEq/L (5-15); Blood Urea Nitrogen 28 mg/dl (7-17); Calcium 9.5 mg/dl (8.4-10.2); Carbon Dioxide 30 mmol/L (22.0-30.0); Creatinine Clearance Estimated 26 mL/min (50-200); Estimated Glomerular Filt Rate 28 ml/min (>60); GFR (African American) 34 ML/MIN (>60); Glucose 120 mg/dl (74-100)
[2023-06-24 07:50] VITALS: BP 102/46; PULSE 85; RESP 20; TEMP 36.6; O2SAT 97
--- NOTE | 2023-06-24 10:36 | DIET.NUTRFU ---
Reviewing chart patient has not had BM since admit on 06/20. When asked patient she thought she recalled having BM on Friday, she requires assistance with transfers and bathroom tasks. Nursing aid that was on Friday did not verify she went, he feels she did not. She has had good food and fluid intake. She is already on colace and senna. Provider will add miralax today to help with BM. Discharge plan is home with family, therapy and social insurance adviser have expressed concern for readmit due to her level of help she needs. She will not be able to stand and prepare meals, family is going to help with meals.
[2023-06-24 16:00] VITALS: BP 90/52; PULSE 86; RESP 22; TEMP 36.8; O2SAT 95
--- NOTE | 2023-06-24 16:14 | EXP.PN ---
Subjective *Date: 06/24/23 *Time: 16:14 Interval history: Patient seen and evaluated at the bedside, patient denied chest pain nausea vomiting. Patient states she is keeping up with hydration. Exam Data for Last 24 hours Vital signs and Labs for Last 24 Hours: Temp Pulse Resp BP Pulse Ox O2 Del Method 97.8 F 85 20 102/46 L 97 Room Air 06/24/23 07:50 06/24/23 07:50 06/24/23 07:50 06/24/23 07:50 06/24/23 07:50 06/24/23 15:00 Laboratory Results - last 24 hr 06/23/23 16:08: POC Glucose 122 H 06/23/23 20:23: POC Glucose 135 H 06/24/23 05:20: POC Glucose 122 H 06/24/23 05:45: WBC 8.0, RBC 4.03 L, Hgb 11.8 L, Hct 35.6 L, MCV 88.2, MCH 29.3, MCHC 33.3, RDW 14.8, Plt Count 266, MPV 7.8, Neut % (Auto) 64.6, Lymph % (Auto) 22.3, Clay % (Auto) 8.0, Eos % (Auto) 4.5, Baso % (Auto) 0.5, Neut # (Auto) 5.2, Lymph # (Auto) 1.8, Clay # (Auto) 0.6, Eos # (Auto) 0.4, Baso # (Auto) 0.0, Sodium 134 L, Potassium 5.5 H, Chloride 99, Carbon Dioxide 30, Anion Gap 10.5, BUN 28 H D, Creatinine 1.80 H D, Estimated Creat Clear 26, Estimated GFR 28 L, Est GFR ( Amer) 34 L D, Glucose 120 H, Calcium 9.5 I & O for Last 24 hours: Intake & Output 06/21/23 06/22/23 06/23/23 06/24/23 23:59 23:59 23:59 23:59 Intake Total 1719 / 2019 1480 / 1720 1849 / 2089 1530 / 1530 Output Total 4752 / 4752 2024 / 2024 1800 / 1800 100 / 100 Balance -3032 / -2732 -545 / -305 50 / 290 1430 / 1430 Weight 117.48 kg 114.532 kg 114.532 kg 115.326 kg Constitutional Constitutional: no acute distress *Routine HEENT Exam Head: Present normocephalic Eye: Present EOMI and PERRL ENT: Present mucous membranes moist *Routine Neck Exam Neck: Present supple; Absent lymphadenopathy *Routine Respiratory Exam Respiratory: Present CTA bilaterally *Routine Cardiovascular Exam Cardiovascular: Present RRR *Routine Abdominal Exam Abdominal: Present soft and normoactive bowel sounds; Absent tenderness *Routine Extremities Exam Extremities: Absent cyanosis, clubbing or edema *Routine Skin Exam Skin: Present warm; Absent rash *Routine Neurological Exam Neurological: Present alert and oriented X3 Assessment and Plan *Assessment and plan (1) Gait disorder: Status: Acute Category: Medical Code(s): R26.9 - Unspecified abnormalities of gait and mobility (2) (HFpEF) heart failure with preserved ejection fraction: Status: Acute Category: Medical Code(s): I50.30 - Unspecified diastolic (congestive) heart failure (3) Hypertension: Status: Chronic Qualifiers: Hypertension type: primary hypertension Qualified Code(s): I10 - Essential (primary) hypertension Category: Medical Code(s): I10 - Essential (primary) hypertension Plan Patient is a 68-year-old female with past medical history of chronic CHF with preserved ejection fraction, bilateral hip degenerative disease who presented to hospital. Difficulty ambulation. Assessment Generalized weakness Acute kidney injury Bilateral hip degenerative disease Heart failure with preserved ejection fraction Hypertension Morbid obesity Plan Gentle IV fluid therapy Hold diuretics., Avoid nephrotoxic medications Monitor and replace electrolytes PT OT evaluated patient, recommended SNF placement however patient and family had selected very few options, ended up deciding going back home with home care DVT prophylaxis-on Lovenox Resume home medications Disposition - likely DC tomorrow, monitor Cr
[2023-06-24 20:00] VITALS: BP 89/44; PULSE 76; RESP 18; TEMP 36.8; O2SAT 95
--- NOTE | 2023-06-24 21:07 | PC.NURSE ---
rounded on pt, pt has refused her bath.
[2023-06-25 04:00] VITALS: BP 138/68; PULSE 72; RESP 18; TEMP 36.4; O2SAT 97; BMI 43.5
--- NOTE | 2023-06-25 05:41 | PC.NURSE ---
no events through the nights, bp remains low at times 89-90's systolic. asymptomatic
[2023-06-25 07:17] VITALS: BP 97/61; PULSE 76; RESP 18; TEMP 36.5
[2023-06-25 08:40] VITALS: PULSE 76; O2SAT 96
--- NOTE | 2023-06-25 09:21 | PC.NURSE ---
[address] Stevens, pt has no lab work ordered this am to check crea. Pt also had 2 iv's at start of shift, one infiltrated, the other is painful when flushed. both were removed. notified that if pt remains inpt today, she will need new iv. Per Dr Stevens, order stat BMP
[2023-06-25 10:08] LABS: Chloride 103 mmol/L (98-107); Potassium 5.3 mmoL/L (3.5-5.1); Sodium 137 mmol/L (136-145)
[2023-06-25 10:11] LABS: Anion Gap 10.3 mEq/L (5-15); Blood Urea Nitrogen 24 mg/dl (7-17); Calcium 9.8 mg/dl (8.4-10.2); Carbon Dioxide 29 mmol/L (22.0-30.0); Creatinine Clearance Estimated 43 mL/min (50-200); Estimated Glomerular Filt Rate 50 ml/min (>60); GFR (African American) 60 ML/MIN (>60); Glucose 119 mg/dl (74-100)
--- NOTE | 2023-06-25 10:18 | PC.NURSE ---
Courtesy Round Patient awake and sitting up in bed . Trash and linens emptied . Patient voiced no needs at this time. Call light with reach.
--- NOTE | 2023-06-26 14:49 | CARE MANAGER ---
Contacted patient related to hospital discharge. Patient states she is doing ok. They are waiting to hear from home health. Denies questions or concerns. Has new medications and is aware of follow up appointment.
--- NOTE | 2023-06-30 15:14 | EXP.DC.SUM ---
General Admission date:: 06/20/23 Discharge date: 06/24/23 HPI HPI HPI: This is a 68-year-old female that is brought by EMS to [facility] emergency department for concerns of hip pain. Her past medical history is significant for degenerative joint disease of hips bilaterally, BMI 44, diabetes and HFpEF. She has identified loss of mobility and endorses frailty. The patient has not identified foot drop, falls or injury. EMS identified concerns with social determinants of health upon arrival to her home. Case management and PT were consulted out of the ED. PT identified inability to mobilize. ED imaging identified severe degenerative joint disease of both hips. Hospital Course Hospital Course Hospital Course: Patient was seen and evaluated at the bedside on the day of discharge. Patient is stable for discharge. Patient wishes to be discharged. All patient questions were answered and patient was given time to ask questions. Patient was discharged in stable condition. Patient is a 68-year-old female with past medical history of chronic CHF with preserved ejection fraction, bilateral hip degenerative disease who presented to hospital. Difficulty ambulation. Assessment Generalized weakness - improved Acute kidney injury - improved Bilateral hip degenerative disease Heart failure with preserved ejection fraction Hypertension Morbid obesity Patient is stable for discharge, patient to f/u with appointments, new prescriptions sent Exam Data for Last 24 hours Vital signs and Labs for Last 24 Hours: Temp Pulse Resp BP Pulse Ox O2 Del Method 97.7 F 76 18 97/61 L 96 Room Air 06/25/23 07:17 06/25/23 08:40 06/25/23 07:17 06/25/23 07:17 06/25/23 08:40 06/25/23 15:21 DS: Diagnosis Discharge Diagnosis (1) Gait disorder: Status: Acute Code(s): R26.9 - Unspecified abnormalities of gait and mobility (2) (HFpEF) heart failure with preserved ejection fraction: Status: Acute Code(s): I50.30 - Unspecified diastolic (congestive) heart failure (3) Hypertension: Status: Chronic Code(s): I10 - Essential (primary) hypertension Qualifiers: Hypertension type: primary hypertension Qualified Code(s): I10 - Essential (primary) hypertension Meds Home Medications and Allergies Home Medications Medication Instructions Recorded Confirmed Type atorvastatin 20 mg tablet 20 mg PO DAILY Cholesterol 06/20/23 06/20/23 History furosemide 40 mg tablet 40 mg PO DAILY Fluid 06/20/23 06/20/23 History metformin 500 mg tablet 500 mg PO DAILY Diabetes 06/20/23 06/20/23 History trospium 20 mg tablet 20 mg PO BID Overactive Bladder 06/20/23 06/20/23 History docusate sodium 100 mg capsule 100 mg PO DAILY #30 caps 06/25/23 Rx empagliflozin 10 mg tablet 10 mg PO DAILY #30 tabs 06/25/23 Rx (Jardiance) folic acid 1 mg tablet 1 mg PO DAILY #30 tabs 06/25/23 Rx lisinopril 10 mg tablet 10 mg PO DAILY #30 tabs 06/25/23 Rx pantoprazole 40 mg tablet,delayed 40 mg PO DAILY #30 tabs 06/25/23 Rx release spironolactone 25 mg tablet 25 mg PO DAILY #30 tabs 06/25/23 Rx New Prescriptions to Start Prescriptions: docusate sodium Rodney,Tiny empagliflozin [Jardiance] Rodney,Gabriellean folic acid Rodney,Irfan lisinopril Rodney,Irfan pantoprazole Rodney,Irfan spironolactone Rodney,Irfan Allergies Allergy/AdvReac Type Severity Reaction Status Date / Time naproxen [From NAPROSYN] Allergy Intermediate I-RASH Verified 06/20/23 12:37 cefaclor [From CECLOR] Allergy Unknown Verified 06/20/23 12:37 ampicillin Allergy Verified 06/20/23 12:37 egg Allergy Rash Verified 06/21/23 08:15 Discharge Plan Disposition Patient Disposition: Home Health Service Condition: Fair Discharge
== END 2023-06-25 15:26 | disposition home health service (06) ==
LOC: ER 08:58 → 2ND 11:28
PROVIDERS: Internal Medicine; Internal Medicine Adolescent Medicine; Admitting Provider Family Medicine; Emergency Provider Student in an Organized Health Care Education/Training Program; Visit Provider Family Medicine
DX: R26.9 Unspecified abnormalities of gait and mobility (principal); M16.0 Bilateral primary osteoarthritis of hip; I50.30 Unspecified diastolic (congestive) heart failure; E11.9 Type 2 diabetes mellitus without complications; I11.0 Hypertensive heart disease with heart failure; Z79.899 Other long term (current) drug therapy; Z79.84 Long term (current) use of oral hypoglycemic drugs; E66.01 Morbid (severe) obesity due to excess calories; Z68.41 Body mass index [BMI] 40.0-44.9, adult
CPT/HCPCS: 36415; 71045; 72131; 73502; 80048; 80053; 81001; 82550; 82962; 83036; 83605; 83735; 83880; 84100; 84439; 84443; 84484; 85007; 85025; 85610; 87040; 87636; 93005; 93306; 97110; 97116; 97530; 99285; G0378; J0131; J2405; J3475

== ENCOUNTER 2024-07-22 15:46 | Outpatient (CLI) | payer MEDICARE, SELFPAY ==
--- OUTSIDE RECORDS SUMMARY | 2024-07-22 15:54 | XMS_ITS | Data Portability ---
Author Organization [facility] Address [address] [place] [address] Assessment No assessment recorded. Plan of Treatment Reminders Order Date Submit Date Provider Last Modified By Organization Details Last Modified Time Details Appointments None recorded. Lab CMP, serum or plasma 2023 [facility] (Laboratory), [address] [place], [address], 17:28:53 hemoglobin A1c + average glucose, QN, blood [facility] [address] [place], [address], 07:59:01 TSH, serum or plasma 2023 [facility] (Laboratory), [address] [place], [address], 17:28:49 CBC w/ auto diff 2023 [facility] (Laboratory), [address] [place], [address], 16:51:25 iron + TIBC + ferritin, serum 2023 [facility] (Laboratory), [address] [place], [address], 15:01:42 vitamin B12 + folate, serum or blood 2023 [facility] (Laboratory), [address] [place], [address], 4 15:01:42 vitamin D, 25-hydroxy , total, serum 2023 [facility] (Laboratory), [address] [place], [address], 4 15:01:42 urinalysis , dipstick 2023 [facility], [address] [place], [address], 15:08:50 microalbum in/creatin ine, mass ratio, urine 2023 [facility], [address] [place], [address], 15:08:50 culture, urine 2023 [facility] (Laboratory), [address] [place], [address], 07:28:20 Referral home health referral 2023 [email or web address], [address], [place], [address], 4 08:48:43 Procedures None recorded. Surgeries None recorded. Imaging None recorded. Medication Orders famotidine 20 mg tablet 2023 [facility], [address], [address], 15:05:52 Patient TargetsNo targets recorded. Patient InstructionsNo instructions recorded. Reason for Referral Home Health Referral for Imp aired mobility Referring Physician: Seferino Lawrence, Family Medicine, Encounter Date: 06/29/2024 Results Created Date Observation Date Name Description Value Unit Range Abnormal Flag Note LastModifiedBy Organization Detail LastModifiedTime 06/29/2006/29/2024 CBC AUTO W DIFF WBC 11.2 10 4.5-11 .5 Not Available [facility] (Lab Registration) [address], [place], [address], 06/29/2024 16:51:25 06/29/20 24 06/29/2024 CBC AUTO W DIFF RBC 4.08 10 4.25-5 .57 low Not Available [facility] (Lab Registration) [address] [place], [address], 06/29/2024 16:51:25 06/29/20 24 06/29/2024 CBC AUTO W DIFF HGB 11.1 g/dL 12.0-1 5.7 low Not Available [facility] (Lab Registration) [address] [place], [address], 06/29/2024 16:51:25 06/29/20 24 06/29/2024 CBC AUTO W DIFF HCT 36.5 % 36.0-4 7.0 Not Available [facility] (Lab Registration) [address] [place], [address], 06/29/2024 16:51:25 06/29/20 24 06/29/2024 CBC AUTO W DIFF MCV 89.5 fL 80-95 Not Available [facility] (Lab Registration) [address] [place], [address], 06/29/2024 16:51:25 06/29/20 24 06/29/2024 CBC AUTO W DIFF MCH 27.2 pg 27.0-3 4.0 Not Available [facility] (Lab Registration) [address] [place], [address], 06/29/2024 16:51:25 06/29/20 24 06/29/2024 CBC AUTO W DIFF MCHC 30.4 g/dL 32.0-3 6.0 low Not Available [facility] (Lab Registration) [address] [place], [address], 06/29/2024 16:51:25 06/29/20 24 06/29/2024 CBC AUTO W DIFF platelet count 295 10 150-45 0 Not Available [facility] (Lab Registration) [address] [place], [address], 06/29/2024 16:51:25 06/29/20 24 06/29/2024 CBC AUTO W DIFF RDW 14.8 % 12.3-1 5.1 Not Available [facility] (Lab Registration) [address] [place], [address], 06/29/2024 16:51:25 06/29/20 24 06/29/2024 CBC AUTO W DIFF MPV 9.9 fL 7.4-10 .4 Not Available [facility] (Lab Registration) [address] [place], [address], 06/29/2024 16:51:25 06/29/20 24 06/29/2024 CBC AUTO W DIFF granulocyte% 75.4 % 40-75 high Not Available [facility] (Lab Registration) [address] [place], [address], 06/29/2024 16:51:25 06/29/20 24 06/29/2024 CBC AUTO W DIFF lymphocyte% 13.2 % 15-57 low Not Available [facility] (Lab Registration) [address] [place], [address], 06/29/2024 16:51:25 06/29/20 24 06/29/2024 CBC AUTO W DIFF monocyte% 9.1 % 4.0-12 .0 Not Available [facility] (Lab Registration) [address] [place], [address], 06/29/2024 16:51:25 06/29/20 24 06/29/2024 CBC AUTO W DIFF eosinophil% 1.9 % 0.0-4. 0 Not Available [facility] (Lab Registration) [address] [place], [address], 06/29/2024 16:51:25 06/29/20 24 06/29/2024 CBC AUTO W DIFF basophil% 0.3 % 0.0-1. 0 Not Available [facility] (Lab Registration) [address] [place], [address], 06/29/2024 16:51:25 06/29/20 24 06/29/2024 CBC AUTO W DIFF immature granulocytes % 0.1 % 0.0-0. 8 Not Available [facility] (Lab Registration) [address] [place], [address], 06/29/2024 16:51:25 06/29/20 24 06/29/2024 CBC AUTO W DIFF granulocyte# 8.42 10 Not Available [facility] (Lab Registration) [address] [place], [address], 06/29/2024 16:51:25 06/29/20 24 06/29/2024 CBC AUTO W DIFF lymphocyte# 1.47 10 Not Available [facility] (Lab Registration) [address] [place], [address], 06/29/2024 16:51:25 06/29/20 24 06/29/2024 CBC AUTO W DIFF monocyte# 1.01 10 Not Available [facility] (Lab Registration) [address] [place], [address], 06/29/2024 16:51:25 06/29/20 24 06/29/2024 CBC AUTO W DIFF eosinophil# 0.21 10 Not Available [facility] (Lab Registration) [address] [place], [address], 06/29/2024 16:51:25 06/29/20 24 06/29/2024 CBC AUTO W DIFF basophil# 0.03 10 Not Available [facility] (Lab Registration) [address] [place], [address], 06/29/2024 16:51:25 06/29/20 24 06/29/2024 CBC AUTO W DIFF immature granulocytes # 0.01 10 Not Available [facility] (Lab Registration) [address] [place], [address], 06/29/2024 16:51:25 06/29/20 24 06/29/2024 CBC AUTO W DIFF manual differential NO Not Available [facility] (Lab Registration) [address] [place], [address], 06/29/2024 16:51:25 06/29/20 24 06/29/2024 CBC AUTO W DIFF note Unles s other dennis noted testi ng perfo rmed at: [facility] [address] [place] [address] [phone] Juan cesar MD CLIA: [id number] Not Available [facility] (Lab Registration) [address] [place], [address], 06/29/2024 16:51:25 06/29/20 24 06/29/2024 HEMOG LOBIN A1C glycosylated hemoglobin A1C 6.0 % 4.5-6. 2 Not Available [facility] (Lab Registration) [address] [place], [address], 06/29/2024 17:00:06 06/29/2006/29/2024 HEMOG LOBIN A1C estimated average glucose 126 mg/dL 82-131 Not Available [facility] (Lab Registration) [address] [place], [address], 06/29/2024 17:00:06 06/29/2006/29/2024 HEMOG LOBIN A1C note Unles s other dennis noted testi ng perfo rmed at: [facility] [address] [place] [address] [phone] uJan cesar MD CLIA: [id number] Not Available [facility] (Lab Registration) [address] [place], [address], 06/29/2024 17:00:06 06/29/20 24 06/29/2024 IRON/ TIBC/ %SAT (IRON STUDI ES) iron 38 ug/dL 35-150 Not Available [facility] (Lab Registration) [address] [place], [address], 06/29/2024 17:00:08 06/29/20 24 06/29/2024 IRON/ TIBC/ %SAT (IRON STUDI ES) total iron bind cap (TIBC) 355 ug/dL 250-45 0 Not Available [facility] (Lab Registration) [address] [place], [address], 06/29/2024 17:00:08 06/29/2006/29/2024 IRON/ TIBC/ %SAT (IRON STUDI ES) % saturation 11 % 15-55 low Not Available [facility] (Lab Registration) [address] [place], [address], 06/29/2024 17:00:08 06/29/2006/29/2024 IRON/ TIBC/ %SAT (IRON STUDI ES) note Unles s other dennis noted [facility] [address] [place] [address] [phone] Juan cesar MD CLIA: [id number] Not Available [facility] (Lab Registration) [address] [place], [address], 06/29/2024 17:00:08 06/29/2006/29/2024 THYRO ID STIMU LATIN G HORMO NE thyroid stimulating hormone 1.17 mIU/m L 0.34-4 .80 Not Available [facility] (Lab Registration) [address] [place], [address], 06/29/2024 17:28:49 06/29/20 24 06/29/2024 THYRO ID STIMU LATIN G HORMO NE note Unles s other dennis noted testi ng perfo rmed at: [facility] [address] [place] [phone] Juan cesar MD CLIA: [id number] Not Available [facility] (Lab Registration) [address], [place], [address], 06/29/2024 17:28:49 06/29/2006/29/2024 VITAM IN D TOTAL (D2+D 3) vitamin D25 (D2+D3) 27.9 NG/mL 30-100 low Not Available [facility] (Lab Registration) [address], [place], [address], 06/29/2024 17:28:51 06/29/2006/29/2024 VITAM IN D TOTAL (D2+D 3) note Wayne s other dennis noted testi ng perfo rmed at: [facility] [address] [place] [address] [phone] Juan cesar MD CLIA: [id number] Not Available [facility] (Lab Registration) [address], [place], [address], 06/29/2024 17:28:51 06/29/20 24 06/29/2024 VITAM IN B12 vitamin B12 929 pg/mL 193-98 6 Not Available [facility] (Lab Registration) [address] [place], [address], 06/29/2024 17:28:52 06/29/2006/29/2024 VITAM IN B12 folate (folic acid), serum 9.6 NG/mL 8.6-58 .9 Not Available [facility] (Lab Registration) [address], [place], [address], 06/29/2024 17:28:52 06/29/2006/29/2024 VITAM IN B12 note Unles s other dennis noted testi ng perfo rmed at: [facility] [address] [address] [phone] Juan cesar MD CLIA: [id number] Not Available [facility] (Lab Registration) [address], [place], [address], 06/29/2024 17:28:52 06/29/2006/29/2024 COMP METAB OLIC PANEL sodium 142 mmol/ L 136-14 5 Not Available [facility] (Lab Registration) [address] [place], [address], 06/29/2024 17:28:53 06/29/2006/29/2024 COMP METAB OLIC PANEL potassium 4.5 mmol/ L 3.5-5. 1 Not Available [facility] (Lab Registration) [address] [place], [address], 06/29/2024 17:28:53 06/29/2006/29/2024 COMP METAB OLIC PANEL chloride 105 mmol/ L 98-107 Not Available [facility] (Lab Registration) [address] [place], [address], 06/29/2024 17:28:53 06/29/2006/29/2024 COMP METAB OLIC PANEL carbon dioxide 28 mmol/ L 21-32 Not Available [facility] (Lab Registration) [address] [place], [address], 06/29/2024 17:28:53 06/29/2006/29/2024 COMP METAB OLIC PANEL anion gap 9.0 Not Available [facility] (Lab Registration) [address] [place], [address], 06/29/2024 17:28:53 06/29/2006/29/2024 COMP METAB OLIC PANEL glucose 106 mg/dL 70-110 Not Available [facility] (Lab Registration) [address], [place], [address], 06/29/2024 17:28:53 06/29/2006/29/2024 COMP METAB OLIC PANEL blood urea nitrogen 19 mg/dL 7-18 high Not Available [facility] (Lab Registration) [address], [place], [address], 06/29/2024 17:28:53 06/29/2006/29/2024 COMP METAB OLIC PANEL creatinine 0.9 mg/dL 0.6-1. 0 Not Available [facility] (Lab Registration) [address], [place], [address], 06/29/2024 17:28:53 06/29/2006/29/2024 COMP METAB OLIC PANEL BUN/creatini ne ratio 21.1 9-21 high Not Available [facility] (Lab Registration) [address], [place], [address], 06/29/2024 17:28:53 06/29/2006/29/2024 COMP METAB OLIC PANEL estimated glom filtration rate 70 mL/mi n >60- GFR LIMIT ATION : The eGFR equat ion CKD-E PI 2020 is not appli cable for pedia tric patie nts or great er than 90 years of age. The follo wing condi tions may alter the GFR resul t: extre mes in body size, malnu triti on or obesi ty, skele telma muscl e disea se, parap legia or quadr ipleg ia, veget triny diet or rapid ly guerrero ing kiney funct ion. Not Available [facility] (Lab Registration) [address], [place], [address], 06/29/2024 17:28:53 06/29/2006/29/2024 COMP METAB OLIC PANEL total protein 7.7 g/dL 6.4-8. 2 Not Available [facility] (Lab Registration) [address] [place], [address], 06/29/2024 17:28:53 06/29/2006/29/2024 COMP METAB OLIC PANEL albumin 3.3 g/dL 3.4-5. 0 low Not Available [facility] (Lab Registration) [address], [place], [address], 06/29/2024 17:28:53 06/29/2006/29/2024 COMP METAB OLIC PANEL calcium 10.2 mg/dL 8.5-10 .1 high Not Available [facility] (Lab Registration) [address] [place], [address], 06/29/2024 17:28:53 06/29/2006/29/2024 COMP METAB OLIC PANEL corrected calcium 10.8 mg/dL 8.5-10 .1 high Not Available [facility] (Lab Registration) [address], [place], [address], 06/29/2024 17:28:53 06/29/2006/29/2024 COMP METAB OLIC PANEL bilirubin total 0.2 mg/dL 0.4-1. 5 low Not Available [facility] (Lab Registration) [address], [place], [address], 06/29/2024 17:28:53 06/29/20 24 06/29/2024 COMP METAB OLIC PANEL AST (SGOT) 14 U/L 15-37 low Not Available [facility] (Lab Registration) [address] [place], [address], 06/29/2024 17:28:53 06/29/2006/29/2024 COMP METAB OLIC PANEL ALT (SGPT) 14 U/L 12-78 Not Available [facility] (Lab Registration) [address] [place], [address], 06/29/2024 17:28:53 06/29/20 24 06/29/2024 COMP METAB OLIC PANEL alk phosphatase 94 U/L 53-141 Not Available [facility] (Lab Registration) [address], [place], [address], 06/29/2024 17:28:53 06/29/2006/29/2024 COMP METAB OLIC PANEL note Unles s other dennis noted testi ng perfo rmed at: [facility] [address] [place] [address] [phone] Juan cesar MD CLIA: [id number] Not Available [facility] (Lab Registration) [address], [place], [address], 06/29/2024 17:28:53 06/29/2006/29/2024 MIGUEL TIN ferritin 226 NG/mL 8-388 Not Available [facility] (Lab Registration) [address], [place], [address], 06/29/2024 17:28:55 06/29/2006/29/2024 MIGUEL TIN note Unles s other dennis noted testi ng perfo rmed at: [facility] [address] [place] [address] [phone] Juan cesar MD CLIA: [id number] Not Available [facility] (Lab Registration) [address], [place], [address], 06/29/2024 17:28:55 06/29/2006/29/2024 CULTU RE URINE results LT 06-30 727 No Signi figan t Growt h at Day 1 LT 07-01 654 No Signi fican t Growt h at Day 2 Not Available [facility] (Lab Registration) [address], [place], [address], 07/01/2024 06:55:48 06/29/2006/29/2024 CULTU RE URINE note Unles s other dennis noted testi ng perfo rmed at[facility] [place] [address] [phone] Juan cesar MD CLIA: [id number] Not Available [facility] (Lab Registration) [address] [place], [address], 07/01/2024 06:55:48 06/29/2006/29/2024 urina lysis , dipst ick Leukocytes (reference range) negati ve Not Available [address] [place], [address], 06/29/2024 14:46:24 06/29/2006/29/2024 urina lysis , dipst ick Nitrite (reference range:) negati ve Not Available [address] [address] [place], [address], 06/29/2024 14:46:24 06/29/2006/29/2024 urina lysis , dipst ick Urobilinogen (reference range) 0.2 Not Available [address] [place], [address], 06/29/2024 14:46:24 06/29/20 24 06/29/2024 urina lysis , dipst ick Protein (reference range) negati ve Not Available [address] [place], [address], 06/29/2024 14:46:24 06/29/2006/29/2024 urina lysis , dipst ick pH (reference range 5-8.5) 5.5 Not Available [address] [place] [address] [place], [address], 06/29/2024 14:46:24 06/29/2006/29/2024 urina lysis , dipst ick Blood (reference range:) modera te Not Available [address] [address] [place], [address], 06/29/2024 14:46:24 06/29/2006/29/2024 urina lysis , dipst ick Specific [place] (reference range) 1.020 Not Available [address] [place], [address], 06/29/2024 14:46:24 06/29/2006/29/2024 urina lysis , dipst ick Ketone (reference range) negati ve Not Available [address] [place], [address], 06/29/2024 14:46:24 06/29/2006/29/2024 urina lysis , dipst ick Bilirubin (reference range) negati ve Not Available [address] [place], [address], 06/29/2024 14:46:24 06/29/20 24 06/29/2024 urina lysis , dipst ick Glucose (reference range) negati ve Not Available [address] [place], [address], 06/29/2024 14:46:24 06/29/20 24 06/29/2024 urina lysis , dipst ick Color (reference range: yellow-brown ) Yellow Not Available [address] [place] [address] [place], [address], 06/29/2024 14:46:24 06/29/2006/29/2024 micro album in/cr eatin ine, mass ratio , urine Microalbumin 30 Not Available [address] [place], [address], 06/29/2024 14:46:32 06/29/20 24 06/29/2024 micro album in/cr eatin ine, mass ratio , urine Creatinine 200 Not Available [address] [place], [address], 06/29/2024 14:46:32 06/29/20 24 06/29/2024 micro album in/cr eatin ine, mass ratio , urine Ratio <30 normal Not Available [facility] [place], [address], 06/29/2024 14:46:32 Result Notes None recorded. Problems Name Problem SNOMED Code Status Onset Date Resolution Date Notes Provider Name and Address Organization Details Recorded Time Type 2 diabetes mellitus 98958913 Active 2023 Karen Nathanieldini null, [place] [facility] [place] & [place] 14:38:38 Essential hypertension 30468410 Active 2023 Karen Nathan[place] [facility] [place] 14:38:45 Edema of lower extremity 479132638 Active 2023 Karen Nathan[place] null, [place] [facility] & [place] 14:38:55 Hyperlipidemia 98270171 Active 2023 Karen Nathan[place] [facility] [place] 14:39:02 Iron deficiency anemia 30965455 Active 2023 Karen Nathan[place], [place] [facility] [place] & [place] 14:39:11 Disorder of vitamin B12 977400904 Active 2023 Karen Nathanield[place], [place] [facility] [place] & [place] 14:39:26 Problem Notes None recorded. Procedures Surgical History Date Name Laterality Status Provider Name and Address Organization Details Recorded Time Gallbladder Surgery completed Janeth e Pardini [place] [facility] [place] & [place] 14:41:10 transesophageal echocardiography completed Karen Armstrongdini [place] [facility] [place] & [place] 14:41:18 esophagogastroduodenoscopy completed Karenswathi Armstrongdini [place] [facility] [place] & [place] 14:41:25 Imaging Results None recorded. Procedure Notes None recorded. Medical Equipment None Reported. Allergies Allergen ID Allergen Name Allergen Category Reaction Reaction Severity Criticality Documentation Date Start Date Code Code System Note Provider Name and Address Organization Details Recorded Time 943035 Ceclor medicatio n Not available Not available Not available 06/29/2024 82652 5 RxNorm Karen terry, [place] [facility] & [place] 14:36:00 038738 ampicilli n medicatio n Not available Not available Not available 06/29/2024 733 RxNorm Karen Dobbs null, [place] - [facility] & [place] 14:36:05 Medications Name Sig Start Date Stop Date Status Note LastModified by Organization Details LastModified Time furosemide 40 mg tablet TAKE 1 TABLET BY MOUTH TWICE DAILY NEEDED active Not Available Not Available No t Available atorvastati n 20 mg tablet TAKE 1 TABLET BY MOUTH ONCE DAILY active Not Available Not Available No t Available Iron (ferrous sulfate) 325 mg (65 mg iron) tablet Take 1 tablet every day by oral route as directed. active Not Available Not Available No t Available hydrochloro thiazide 50 mg tablet TAKE 1 TABLET BY MOUTH TWICE DAILY active Not Available Not Available No t Available meloxicam 15 mg tablet TAKE 1 TABLET BY MOUTH ONCE DAILY 06/29 completed Not Available Not Available Not Available spironolact one 25 mg tablet TAKE 1 TABLET BY MOUTH ONCE DAILY active Not Available Not Available No t Available Vitamin D3 10 mcg (400 unit) tablet Take 1 tablet every day by oral route as directed. active Not Available Not Available No t Available famotidine 20 mg tablet TAKE 1 TABLET BY MOUTH TWICE DAILY active Not Available Not Available No t Available OneTouch Ultra Test strips USE 1 STRIP TO CHECK GLUCOSE TWICE DAILY active Not Available Not Available No t Available pantoprazol e 40 mg tablet,sherly yed release TAKE 1 TABLET BY MOUTH ONCE DAILY 06/29 completed Not Available Not Available Not Available lisinopril 10 mg tablet TAKE 1 TABLET BY MOUTH ONCE DAILY active Not Available Not Available No t Available hydrochloro thiazide 25 mg tablet TAKE 1 TABLET BY MOUTH ONCE DAILY 06/29 completed Not Available Not Available Not Available albuterol sulfate HFA 90 mcg/actuati on aerosol inhaler INHALE 2 PUFFS BY MOUTH EVERY 4 HOURS NEEDED FOR WHEEZING active Not Available Not Available No t Available ondansetron 4 mg disintegrat ing tablet DISSOLVE 1 TABLET IN MOUTH EVERY 8 HOURS NEEDED FOR NAUSEA 06/29 completed Not Available Not Available Not Available glipizide 5 mg tablet TAKE 1 TABLET BY MOUTH ONCE DAILY active Not Available Not Available No t Available trospium 20 mg tablet TAKE 1 TABLET BY MOUTH TWICE DAILY 06/29 completed Not Available Not Available Not Available Calcium 500 + D 500 mg-10 mcg (400 unit) tablet Take 1 tablet every day by oral route. active Not Available Not Available No t Available Mounjaro 2.5 mg/0.5 mL subcutaneou s pen injector Inject 2.5 mg every week by subcutane ous route for 30 days. 2023 active Not Available Not Available Not Avai lable Lagevrio 200 mg capsule (EUA) TAKE 4 CAPSULES BY MOUTH EVERY 12 HOURS FOR 5 DAYS 06/29 completed Not Available Not Available Not Available Vitals Date Recorded Body height Body temperature Oxygen saturation Oxygen saturation in Arterial blood by Pulse oximetry Heart rate Respiratory rate Systolic blood pressure Diastolic blood pressure Provider Name and Address Organization Details Last Updated DateTime 4 152.4 cm 98.4 [degF] 95 % 95 % 91 /min 18 /min 121 mm[Hg] 73 mm[Hg] Karen Dobbs [facility] & [place] 14:35:03 Social History Question Answer Notes LastModified by Organizat ion Details LastModified Time Tobacco Smoking Status Never Smoker Karen Dobbs [facility] & [place] 06/29/2024 14:40:16 Do You Have An Advance Directive? No Information n ot available 06/29/2024 What Is Your Level Of Alcohol Consumption? None Information not available 06/29/2024 Are You Blind Or Do You Have Difficulty Seeing? No Information n ot available 06/29/2024 What Is Your Level Of Caffeine Consumption? Occasional Information not available 06/29/2024 In The 14 Days Before Symptom Onset, Have You Had Close Contact With A Laboratory-confirm ed COVID-19 While That Case Was Ill? No Information n ot available 06/29/2024 In The 14 Days Before Symptom Onset, Have You Had Close Contact With A Person Who Is Under Investigation For COVID-19 While That Person Was Ill? No Information not available 06/29/2024 Have You Been To An Area Known To Be High Risk For COVID-19? No Information not available 06/29/2024 Are You Currently Employed? No Information not available 06/29/2024 Are You Deaf Or Do You Have Serious Difficulty Hearing? No Information not available 06/29/2024 What Type Of Diet Are You Following? REGULAR Information n ot available 06/29/2024 Have You Processed Blood Or Body Fluids From An Ebola Virus Disease Patient Without Appropriate PPE? No Information not available 06/29/2024 Do You Reside In Or Have You Traveled To An Area Where Ebola Virus Transmission Is Active? No Information not available 06/29/2024 Have There Been Any Changes To Your Family Or Social Situation? No Information no t available 06/29/2024 What Is The Fluoride Status Of Your Home? Unknown Information not available 06/29/2024 Are There Any Guns Present In Your Home? No Information not available 06/29/2024 Have You Recently Or Are You Planning To Travel To An Area With Zika Virus? No Information not available 06/29/2024 Do You Use Insect Repellent Routinely? Yes Information not available 06/29/2024 Do You Feel Safe At Home? Yes Information not available 06/29/2024 Do You Have A Medical Power Of Edger Technician? No Information not available 06/29/2024 Do You Have Any Pets? Yes Information not available 06/29/2024 What Is Your Relationship Status? Information not available 06/29/2024 Do You Use Your Seat Belt Or Car Seat Routinely? Yes Information not available 06/29/2024 Do You Have Smoke And Carbon Monoxide Detectors In Your Home? Yes Information not available 06/29/2024 Are You Passively Exposed To Smoke? No Information no t available 06/29/2024 Do You Feel Stressed (tense, Restless, Nervous, Or Anxious, Or Unable To Sleep At Night)? [id number] Information not available 06/29/2024 Do You Use Any Illicit Or Recreational Drugs? No Information not available 06/29/2024 Do You Use Sunscreen Routinely? Yes Information not available 06/29/2024 Has Tobacco Cessation Counseling Been Provided? No Information not available 06/29/2024 Are You Currently In School? No Information not available 06/29/2024 Do You Or Have You Ever Used Any Other Forms Of Tobacco Or Nicotine? No Information not available 06/29/2024 Sex: Unknown Functional Status Question Answer Note LastModified by Organizat ion Details LastModified Time Do you have difficulty walking or climbing stairs? Yes Information not available 06/29/2024 Do you have transportation difficulties? Yes Information not available 06/29/2024 Are you able to walk? NOWALK Inf ormation not available 06/29/2024 Do you have difficulty doing errands alone? Yes Information not available 06/29/2024 Are you able to care for yourself? Yes Information not available 06/29/2024 Do you have difficulty dressing or bathing? Yes Information not available 06/29/2024 What is your exercise level? None Information not available 06/29/2024 Mental Status Question Answer Note LastModified by Organization D etails LastModified Time Do you have difficulty concentrating, remembering or making decisions? Yes Information no t available 06/29/2024 Family History Nothing Reported. Medical History No medical history recorded. Gynecological HistoryNo gynecological history recorded. Obstetrics History GPAL:G 0 P 0 0 0 0 Immunizations Vaccine Type Date Status Provider Name and Address Organization Details Recorded Time Influenza, recombinant, quadrivalent, PF 06/10/2019 completed Karen Dobbs [facility], [place] - NT [facility] & [place] 06/29/2024 14:35:50 zoster recombinant 12/01/2021 completed Karen beckman [facility], [place] - [facility] & [place] 06/29/2024 14:35:50 Influenza, high-dose, quadrivalent, PF 05/31/2023 completed Karen Pardini null, [place] - [facility] - [place] & [place] 06/29/2024 14:35:50 Influenza, high-dose, quadrivalent, PF 06/08/2022 completed Karen Pardini null, [place] - [facility] - [facility] & [place] 06/29/2024 14:35:50 Influenza, high-dose, quadrivalent, PF 07/14/2021 completed Karen Pardini null, [place] - [facility] - [facility] & [place] 06/29/2024 14:35:50 COVID-19, mRNA, LNP-S, PF, 100 mcg/0.5mL dose or 50 mcg/0.25mL dose 12/17/2020 completed Karen Pardini null, [place] - [facility] - [facility] & [place] 06/29/2024 14:35:50 COVID-19, mRNA, LNP-S, PF, 100 mcg/0.5mL dose or 50 mcg/0.25mL dose 01/14/2021 completed Karen Pardini null, [place] - [facility] - [place] & [place] 06/29/2024 14:35:50 Pneumococcal conjugate PCV20, polysaccharide [id number] conjugate, adjuvant, PF 05/31/2023 completed Karen Pardini [place] - [facility] - [place] & [place] 06/29/2024 14:35:50 pneumococcal polysaccharide PPV23 11/15/2015 completed Karen Pardini [place] - [facility] - [place] & [place] 06/29/2024 14:35:50 pneumococcal polysaccharide PPV23 12/01/2021 completed Karen Pardini null, [place] - [facility] - [facility] & [place] 06/29/2024 14:35:50 Tdap 05/31/2023 completed Karen Pardini null, [place] - [facility] - [place] & [place] 06/29/2024 14:35:50 Past Encounters Encounter ID Performer Location Encounter Start Date Encounter Closed Date Diagnosis/Indication Diagnosis SNOMED-CT Code Diagnosis ICD10 Code [id number] SEFERINO LAWRENCE NP [facility] [address] [id number] 06/29/2024 14:07:12 06/29/2024 14:51:48 Essential hypertension 71779135 I10 Blood in urine 29952043 R31.9 Type 2 chari betes mellitus 53642596 E11.9 Anemia 104237475 D64.9 Edema 292189034 R60.9 Impaired mobility 108119 05 Z74.09 Vitamin D deficiency 347 68284 E55.9 Intolerant of cold 38781 000 R68.89 Gastroesop hageal reflux disease without esophagitis 795720544 K21.9 Health Concerns Section Related Observation LastModified by Organization Detai ls LastModified Time None Recorded Concern Status LastModified by Organization Details LastModified Time None Recorded Advance Directives Directive N: Payers Encounter Date Sequence Insurance Name Policy Number Policy Red Covered Member ID Red Member ID Guarantor Name 06/29/2024 1 [employer] (MEDICARE REPLACEMENT HMO) Alyssa Jamil [id number] Alyssa Jamil Notes Date Note Type Note Provider Name and Address Organization Details Recorded Time 06/29/2024 text/html 69-year-old stuart salas who presents as a new patient previously followed by provider in [facility]. She lives at home with her and son. History of diabetes. Currently taking glipizide. Last lab work was completed approximately 3 months ago. Reports uncontrolled edema, swelling. Originally in her legs but has progressively worsened over the past 6-7 months and now having swelling in her arms. She reports the swelling in her arms did not start until they added on the 3rd fluid pill. She is unable to get herself off of the toilet due to arm swelling and weakness. She does have a walker and wheelchair at home. Using the walker it takes her 1 hour to walk from the living room to the bathroom or bedroom. She has pain in her groin area on the left side that as long as she rubs it feels better but causes her trouble walking. She also has a cyst behind her knee. Complains of uncontrolled acid reflux. SEFERINO LAWRENCE NP [address] [place] [address], [id number] [place] 07/02/2024 09:30:21 OBGyn Episode No OBEpisode recorded.
--- OUTSIDE RECORDS SUMMARY | 2024-07-22 15:55 | XMS_ITS | Encounter Summary ---
[facility] Address [address] [place] [address] Care Team Providers Care Roller Coaster Operator Name Role Phone Provider, No Known Primary Care Provider Unavail able Encounter Details Date Type Department Care Team (Late st Contact Info) Description 07/17/2015 3:45 PM EST - 07/17/2015 11:59 PM [facility] Hospital Encounter [address] [facility] [address] [place] [id number] Tank Fields MD [address] [facility] [address] [place] [address] Discharge Disposition: Home or Self Care Social History Tobacco Use Types Packs/Day Years Used Date Smoking Tobacco: Never Assessed Comments Unknown Sex and Gender Information Value Date Recorded Sex Assigned at Not on file Legal Sex Female 10:33 AM EDT Gender Identity Not on file Sexual Orientation Not on file documented as of this encounter Plan of Treatment Not on file documented as of this encounter Visit Diagnoses Not on filedocumented in this encounter Care Teams Roller Coaster Operator Relationship Specialty Start Date End Date Provider, No Known [place] [address] PCP - General 06/15/15 08/26/15 documented as of this encounter
--- OUTSIDE RECORDS SUMMARY | 2024-07-22 15:55 | XMS_ITS | Clinical Summary ---
[facility] Address [address] [place] [address] Care Team Providers Care Joint Cutter Name Role Phone Provider, No Known Primary Care Provider [phone] Allergies Active Allergy Reactions Criticality Noted Date Comments Esomeprazole Magnesium 03/06/2017 Active Problems No known active problems Family History Medical History Relation Name Comments Colon cancer Mother Relation Name Status Comments Mother Social History Tobacco Use Types Packs/Day Years Used Date Smoking Tobacco: Never Alcohol Use Standard Drinks/Week Comments No 0 (1 standard drink = 0.6 oz pur e alcohol) Abuse Screen Answer Date Recorded Unsafe at Home or Work/School Not on file Feels Threatened by Someone? Not on file 07/2023 Does Anyone Keep You from Co ntacting Others or Doint Things Outside the Home? Not on file 06/18/2023 Physical Sign of Abuse Present Not on file 1 Housing Stability Answer Date Recorded Current Living Arrangements Not on file 06/08 Potentially Unsafe Housing Conditions Not on sapphire e 06/18/2023 Family and Community Support Answer Beny e Recorded Help with Day-to-Day Activities Not on file 06/18/2023 Lonely or Isolated Not on file 06/18/2023 Employment Answer Date Recorded Do you want help finding or keeping work or a israel b? Not on file 06/18/2023 Disabilities Answer Date Recorded Concentrating, Remembering, or Making Decisions Difficulty Not on file 06/18/2023 Doing Errands Independently Difficulty Not on fi le 06/18/2023 Education Answer Date Recorded Help with school or training? Not on file Preferred Language Not on file 06/18/2023 Comments Unknown Sex and Gender Information Value Date Recorded Sex Assigned at Not on file Legal Sex Female 10:33 AM EDT Gender Identity Not on file Sexual Orientation Not on file Plan of Treatment Health Maintenance Due Date Last Done Comments GERALD 1955 COLON CANCER SCREENING 5 YEA R SIGMOIDOSCOPY [address] COLONOGRAPHY 1955 FIT Testing (1 year) 1955 MAMMOGRAM 07/08/2014 07/08/2012 ANNUAL PHYSICAL 03/06/2017 HEPATITIS C SCREENING 03/06/2017 PAP SMEAR 03/06/2017 DXA SCAN 01/30/2019 01/30/2017 Pneumococcal Vaccine 65+ (1 of 1 - PCV) 2021 COLORECTAL CANCER SCREENING 05/18/2021 FECAL OCCULT BLOOD TEST 05/18/2021 05/18/2020 ZOSTER VACCINE (2 of 2) 01/26/2022 12/01/2021 TDAP/TD VACCINES (2 - Td or Tdap) 01/06/2023 013 INFLUENZA VACCINE 04/08/2024 COVID-19 Vaccine (3 - season) 05/09/202405/2021, 12/17/2020 Care Teams Joint Cutter Relationship Specialty Start Date End Date Provider, [place] [address] PCP - General 01/25/16
--- OUTSIDE RECORDS SUMMARY | 2024-07-22 15:55 | XMS_ITS | Encounter Summary ---
Author Organization [facility] Address [address] [place] [address] Care Team Providers Care Respiratory Care Specialist Name Role Phone Cristiane Shirley MD Primary Care Provider [phone] Encounter Details Date Type Department Care Team (Late st Contact Info) Description 08/28/2015 10:33 AM EST - 08/29/2015 11:49 AM EST Hospital Encounter [address] [id number] Bre Estrada MD Discharge Disposition: Home or Self Care Social History Tobacco Use Types Packs/Day Years Used Date Smoking Tobacco: Never Assessed Comments Unknown Sex and Gender Information Value Date Recorded Sex Assigned at Not on file Legal Sex Female 10:33 AM EDT Gender Identity Not on file Sexual Orientation Not on file documented as of this encounter Discharge Summaries * Interface, See Report - 08/28/2015 10:33 AM EST [facility] [address] [place] [address] DISCHARGE SUMMARY PATIENT NAME: LEISA CAMPOS ROOM NUMBER: [id number] VISIT NUMBER: [id number] DATE OF : 1955 DATE OF ADMISSION: 08/28/2015 DATE OF DISCHARGE: 08/29/2015 PRIMARY CARE PHYSICIAN: Cristiane Shirley MD ADMISSION/FINAL DIAGNOSES: 1. 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 2. Morbid obesity with a BMI of 54. 3. ECOG performance status of 2. 4. Hypertension requiring multiple agents. 5. Type 2 diabetes. 6. Dyslipidemia. 7. GERD. 8. Arthritis. 9. History of gastric ulcer. 10. Chronic constipation. 11. History of abnormal EKG. HOSPITAL COURSE: The patient is a 60-year-old female recently diagnosed with endometrial cancer in the setting of multiple medical comorbidities. She was extensively counseled in the office regarding options for management and elected to proceed with surgery. On 08/28/2015 she underwent a scheduled total vaginal hysterectomy with Dr. Estrada and Dr. Blakely. Her ovaries were left in situ secondary to her body habitus. Postoperatively she was maintained on all of her home medications including Amlodipine, Carvedilol, Lisinopril, Metformin and Prilosec. By the morning of postoperative day 1 she was voiding spontaneously, tolerating a general diet, ambulating and having her pain controlled with oral pain medications. Her postoperative day 1 laboratory studies were unremarkable and included a white blood cell count of 13.9, hemoglobin of 10.4 and hematocrit of 33.9. Her chemistries were normal. She was stable for discharge home. DISCHARGE MEDICATIONS: Include all of her home medications with the addition of: 1. Percocet. 2. MiraLAX. DISCHARGE INSTRUCTIONS: She was instructed to call or return to medical attention for fever greater than 100.4, inability to tolerate food or liquid, inability to urinate or pass gas, severe pain, questions regarding medications, concerns regarding her incision, vaginal bleeding or discharge or for any other acute concerns. She was also instructed not to drive while taking narcotic pain medications, to abide by pelvic rest and to avoid heavy lifting for at least 6 weeks. CONDITION: Stable. DISPOSITION: Home. Results pending at the time of discharge: Surgical pathology. FOLLOWUP: Dr. Estrada for postoperative care. Dr. Shirley her primary care physician was also contacted for assistance in arranging a home physical therapy/occupational therapy consultation given her baseline functional limitations. Bre Estrada M.D.* EVAN/rxll Voice Rec. ID #[id number] Voice Original ID #[id number] Doc ID #[id number] Rev. #0 cc: Bre Estrada M.D.* Cristiane Shirley M.D.* Tank Fields MD* DO NOT TEXT EDIT THIS LINE :CDS:[id number]: Authenticated by BRE ESTRADA MD On 08/30/2015 10:36:21 AM documented in this encounter OR Notes * Op Note - Bre Estrada MD - 08/29/2015 12:00 AM EST [place] [address] OPERATIVE REPORT PATIENT NAME: LEISA CAMPOS ROOM NUMBER: [id number] VISIT NUMBER: [id number] DATE OF : 1955 DATE OF OPERATION: 08/28/2015 PREOPERATIVE DIAGNOSIS: 1. FIGO Grade I endometrioid adenocarcinoma of the uterus. 2. BMI of 54 3. ECOG Performance status of 2 POSTOPERATIVE DIAGNOSIS: 1. FIGO Grade I endometrioid adenocarcinoma of the uterus. 2. BMI of 54 3. ECOG Performance status of 2 PROCEDURES PERFORMED: 1. Exam under anesthesia. 2. Total vaginal hysterectomy. SURGEON: Bre Estrada MD CO-SURGEON: Fouzia Blakely MD ANESTHESIA: General FLUIDS: 600 mL. ESTIMATED BLOOD LOSS: 50 mL. URINE OUTPUT: 300. DRAINS: Harris. SPECIMENS: Uterus and cervix. COMPLICATIONS: None. CONDITION: Stable. DISPOSITION: Extubated to recovery. FINDINGS: Exam under anesthesia revealed moderate pelvic organ prolapse. Rectovaginal exam was unremarkable. Intraoperatively uterus and cervix appeared unremarkable. The bilateral adnexa were able to be palpated deep within the pelvis. Each ovary felt to measure approximately 2 cm or less and were without masses. Given the patient's morbid obesity and visualization the bilateral adnexa were left in situ. DESCRIPTION OF PROCEDURE: The patient was met in the preoperative area and all questions were answered. The consent was verified. She proceeded to the operating room. After general endotracheal anesthesia was induced, she was prepped and draped in the normal sterile fashion in the dorsal lithotomy position with her feet in Yellofins stirrups. Preoperative antibiotics had been administered as well as a pharmacologic agent for VTE prophylaxis. Her arms were carefully placed taking care to protect all pressure points with foam. The beanbag device was used to secure her shoulders on the table with care to again protect all pressure points with foam. A Harris catheter was placed to gravity. Attention was turned to the vagina. A weighted speculum was placed in the vagina. Then 2 figure-of-8 sutures of 0 Vicryl were used to close the cervix and the suture was left long for manipulation. The cervix was then injected circumferentially with 0.25% Marcaine with epinephrine. The cervix was then circumferentially incised using Bovie cautery and the bladder was dissected off the pubovesical cervical fascia anteriorly using a combination of blunt and sharp dissection. The anterior cul-de-sac was entered sharply. The same procedure was performed posteriorly and the posterior cul-de-sac was entered sharply without difficulty. At this point, the LigaSure was placed over the uterosacral ligaments on either side and these were ligated. Hemostasis was assured. The cardinal ligaments were then clamped and ligated with a LigaSure on both sides in a similar fashion. The uterine arteries and the broad ligament were then serially ligated with the LigaSure. Excellent hemostasis was visualized. Both cornua were clamped with the LigaSure, ligated and the uterus was delivered. All pedicles were noted to be hemostatic. The vaginal cuff angles were closed with figure-of-8 sutures of 0 Vicryl on both sides. The remainder of the vaginal cuff was closed with figure-of-8 sutures of 0 Vicryl in an interrupted fashion. Excellent hemostasis was noted. The vagina was then irrigated well and fluid suctioned. All pedicles were again noted to be hemostatic. All instruments were removed from the vagina. A sponge was used to wipe the vagina, which again was noted to be hemostatic and free of instruments and sponges. The patient tolerated the procedure well. Sponge, lap, needle, and instrument counts were correct at the end of the case x 3. Dr. Blakely and I were scrubbed for the entire procedure and the patient was taken to the recovery room in stable condition. Bre Estrada M.D.* EVAN/rxmra Voice Rec. ID #[id number] Original Voice Rec. ID #[id number] Doc ID #[id number] Revision Count: 0 cc: Bre Estrada M.D.* Fouzia Blakely MD* <start header> [place] [address] OPERATIVE REPORT PATIENT NAME: LEISA CAMPOS ROOM NUMBER: [id number] VISIT NUMBER: [id number] DATE OF : 1955 <end header> DO NOT TEXT EDIT THIS LINE :MECHANICAL DOOR REPAIRER:[id number]: Authenticated and Edited by BRE ESTRADA MD On 08/29/15 9:48:16 AM * Op Note - Angelina Hector, RYAN - 08/28/2015 12:00 AM EST [address] [address] OPERATIVE REPORT PATIENT NAME: LEISA CAMPOS ROOM NUMBER: [id number] VISIT NUMBER: [id number] DATE OF : 1955 DATE OF OPERATION: 08/28/2015 SURGEON: Fouzia Blakely MD CO-SURGEON: Bre Estrada MD PREOPERATIVE DIAGNOSIS: Clinical stage I ([id number]) Grade I endometrioid adenocarcinoma. POSTOPERATIVE DIAGNOSIS: Clinical stage I ([id number]) Grade I endometrioid adenocarcinoma. PROCEDURES PERFORMED: Total vaginal hysterectomy. FLUIDS: Crystalloid 600 mL. URINE OUTPUT: 300 mL via Ahrris catheter. ESTIMATED BLOOD LOSS: 50 mL. INDICATIONS: The patient is a pleasant 60-year-old woman with the above preoperative diagnoses. Risks and benefits of the procedure were discussed by myself and by Dr. Estrada. All questions were answered. The patient was taken to the operating room after consent was signed and on chart. DESCRIPTION OF PROCEDURE: For details of the operative report, please refer to Dr. Estrada's dictation. Briefly, after induction of general anesthesia with endotracheal tube placement, the patient was placed in the dorsal lithotomy position with feet in Antonio stirrups. The vagina, perineum and surrounding structures were prepped and draped in the usual sterile fashion. Harris catheter was anchored. Cervix was sutured shut using 0 Vicryl suture in a figure-of-8 fashion x 2 and suture was clamped and retained. This was to prevent tumor spillage and to aid with exposure and retraction during the procedure. Retractors were placed in the vagina to facilitate exposure. Again, please refer to Dr. Estrada's dictation for galeana portions of the procedure. I was present for the entire procedure. There were no complications. The patient tolerated the procedure well and was taken to the recovery room in good condition. All counts were correct and nothing remained in the vagina. Fouzia Blakely MD* HC/rxmra Voice Rec. ID #[id number] Original Voice Rec. ID #[id number] Doc ID #[id number] Revision Count: 0 cc: Fouzia Blakely MD* Bre Estrada M.D.* <start header> [place] [address] OPERATIVE REPORT PATIENT NAME: LEISA CAMPOS ROOM NUMBER: [id number] VISIT NUMBER: [id number] DATE OF : 1955 <end header> DO NOT TEXT EDIT THIS LINE :MECHANICAL DOOR REPAIRER:[id number]: Authenticated by FOUZIA BLAKELY MD On 09/06/2015 05:40:19 PM documented in this encounter Plan of Treatment Not on file documented as of this encounter Procedures Procedure Name Priority Date/Time Associated Diagnosis Comments POCT GLUCOSE FINGERSTICK Routine 08/29/2015 5:39 AM EST CBC (NO DIFF) Routine 08/29/2015 4:26 AM EST BASIC METABOLIC PANEL Routine 08/29/2015 4:26 AM EST POCT GLUCOSE FINGERSTICK Routine 08/29/2015 12:06 AM EST POCT GLUCOSE FINGERSTICK Routine 08/28/2015 5:22 PM EST POCT GLUCOSE FINGERSTICK Routine 08/28/2015 11:34 AM EST CONVERTED (HISTORICAL) SURGICAL PATHOLOGY Routine 08/28/2015 10:27 AM EST TYPE AND SCREEN STAT 08/28/2015 7:28 AM EST POCT GLUCOSE FINGERSTICK Routine 08/28/2015 7:24 AM EST SCANNED EKG 08/28/2015 CBC AND DIFFERENTIAL Routine 08/27/2015 1:02 PM EST COMPREHENSIVE METABOLIC PANEL Routine 08/27/2015 1:02 PM EST documented in this encounter Results * (ABNORMAL) POCT glucose fingerstick (08/29/2015 5:39 AM EST) Glucose 111(H) 70 - 100 mg/dL [facility] Blood specimen (specimen) 08/29/2015 5:39 AM EST 08/29/2015 5:48 AM EST Narrative [facility] - 08/29/2015 5:48 AM EST Specimen Type : Blood Bre Estrada MD POINT OF CARE TEST ORDSaurav ARSHAD Final Result [facility]
[address] [place] [address], * (ABNORMAL) Basic metabolic panel (08/29/2015 4:26 AM EST) Glucose 126(H) 70 - 100 mg/dL [facility] BUN 8(L) 9 - 23 mg/dL [facility] Creatinine 0.6 0.6 - 1.3 mg/dL [facility] Sodium 141 132 - 146 mmol/L [facility] Potassium 4.2 3.5 - 5.5 mmol/L [facility] Chloride 107 99 - 109 mmol/L [facility] CO2 28 20 - 31 mmol/L [facility] Calcium 8.9 8.7 - 10.4 mg/dL [facility] Est GFR by Clearance 102 ml/min/1.7 32 [facility] Comment: ?? National Kidney Foundation Guidelines ?Stage ? Description ?GFR ?1 ?Normal or High ? 90+ ?2 ?Mild decrease ? 60-89 ?3 ?Moderate decrease ?30-59 ?4 ?Severe decrease ?15-29 ?5 ?Kidney failure ?<15 Anion Gap 6 3 - 11 mmol/L [facility] Blood specimen (specimen) 08/29/2015 4:26 AM EST 08/29/2015 5:05 AM EST Narrative [facility] - 08/29/2015 6:12 AM EST Specimen Type : Blood Bre Estrada MD LAB BLOOD ORDERABLES Fi nal Result [facility]
[address] [place] [address], * (ABNORMAL) CBC (No diff) (08/29/2015 4:26 AM EST) WBC 13.97(H) 3.50 - 10.80 K/[facility] RBC 3.82(L) 3.89 - 5.14 /[facility] Hemoglobin 10.4(L) 11.5 - 15.5 g/dL [facility] Hematocrit 33.9(L) 34.5 - 44.0 % [facility] MCV 88.7 80.0 - 99.0 fL [facility] MCH 27.2 27.0 - 31.0 pg [facility] MCHC 30.7(L) 32.0 - 36.0 g/dL [facility] RDW-CV 14.1 11.3 - 14.5 % [facility] Platelets 270 150 - 450 K/mcL [facility] Blood specimen (specimen) 08/29/2015 4:26 AM EST 08/29/2015 5:04 AM EST [facility] - 08/29/2015 5:21 AM EST Specimen Type : Blood us Bre Estrada MD LAB BLOOD ORDERABLES Fi nal Result [facility]
[address] [place] [address], * (ABNORMAL) POCT glucose fingerstick (08/29/2015 12:06 AM EST) Glucose 147(H) 70 - 100 mg/dL [facility] Blood specimen (specimen) 08/29/2015 12:06 AM EST 08/29/2015 12:31 AM EST [facility] - 08/29/2015 12:31 AM EST Specimen Type : Blood us Bre Estrada MD POINT OF CARE TEST ORDE RABLES Final Result Performing Organization Address City/[facility]/ZIP Co de Phone Number [facility]
[address] [place] [address], [place] [phone] * (ABNORMAL) POCT glucose fingerstick (08/28/2015 5:22 PM EST) Glucose 276(H) 70 - 100 mg/dL [facility] Blood specimen (specimen) 08/28/2015 5:22 PM EST 08/28/2015 5:28 PM EST [facility] - 08/28/2015 5:28 PM EST Specimen Type : Blood us Bre Estrada MD POINT OF CARE TEST TOSHA ARSHAD Final Result Performing Organization Address City/[facility]/ZIP Co de Phone Number [facility]
[address] [place] [address], * (ABNORMAL) POCT glucose fingerstick (08/28/2015 11:34 AM EST) Glucose 105(H) 70 - 100 mg/dL [facility] Blood specimen (specimen) 08/28/2015 11:34 AM EST 08/28/2015 11:39 AM EST [facility] - 08/28/2015 11:39 AM EST Specimen Type : Blood us Bre Estrada MD POINT OF CARE TEST TOSHA ARSHAD Final Result Performing Organization Address City/[facility]/RUST de Phone Number [facility]
[address] [place] [address], * Converted Surgical Pathology (08/28/2015 10:27 AM EST) CONVERTED (HISTORICAL) CASE TYPE Surgical Pathology [facility] CONVERTED (HISTORICAL) ACCESSION NUMBER [id number] [facility] CONVERTED (HISTORICAL) RESULT STATUS FINAL [facility] CONVERTED (HISTORICAL) SPECIMEN DESCRIPTION Uterus +/- tubes/ovaries, Neoplastic [facility] 08/28/2015 10:2 7 AM EST 08/28/2015 10:27 AM EST [facility] - 08/29/2015 4:29 PM EST ? [facility] [place] ? [address] [place] [address] ? SURGICAL PATHOLOGY REPORT ? Patient Name: LEISA CAMPOS. ? MR#: [id number] ? : 1955 ? Gender: F ? Ordering Physician: BRE ESTRADA ? Copy To: ? Location: 1S N541-1 ? Collected: 08/28/2015 ? Received: 08/28/2015 ? Reported: 08/29/2015 ? Clinical Diagnosis and History ? The working history is endometrial cancer. ? Final Diagnosis ? UTERUS WITH CERVIX: ?Complex atypical hyperplasia of endometrium, no residual carcinoma ? identified. ? Chronic cervicitis. ? Leiomyoma. ?UTERUS ENDOMETRIUM TEMPLATE: ? SPECIMEN TYPE/ PROCEDURE: ??Hysterectomy. ? LYMPH NODE SAMPLING: ??None. ? SPECIMEN INTEGRITY: ??Intact. ? TUMOR SITE: ??Endometrium. ? TUMOR SIZE (greatest dimension): ??Less than 2 mm diameter total. ? HISTOLOGIC TYPE: ??Well differentiated endometrioid adenocarcinoma arising in ? endometrial polyp (see case [id number]). ? HISTOLOGIC GRADE: Grade 1. ? MYOMETRIAL INVASION: None. ? INVOLVEMENT OF CERVIX: None. ? EXTENT OF INVOLVEMENT OF OTHER ORGANS: None. ? MARGINS: Negative for tumor. ? LYMPHVASCULAR INVASION: Absent. ? MSI TESTING (under age 60): ??Not performed. ? REGIONAL LYMPH NODE STATUS: ??No nodes submitted. ? ADDITIONAL PATHOLOGIC FINDINGS: ??Cystic atrophy and atypical complex ? hyperplasia, leiomyoma. ? OTHER STUDIES: ??None. ? AJCC PATHOLOGIC STAGE: ??(COMPLETED BY PATHOLOGIST, BASED ONLY ON TISSUE ? FINDINGS, MORE EXTENSIVE DISEASE MAY NOT BE KNOWN TO THE PATHOLOGIST) ? pT=is ? pN=x ? AJCC PATHOLOGIC STAGE: ??0 ? DGD/mbc ? Amendments: ? Electronically Signed Out By ? ZEYAD TRIMBLE ? Specimen(s) Received: ? Uterus +/- tubes/ovaries, Neoplastic ? Gross Description ? Received in formalin labeled uterus with cervix consists of a 72 gram intact ? hysterectomy specimen with attached cervix. No adnexal tissue is present. The ? uterine body measures 6.5x5.5x4.5 cm, the attached cervix measures 4.0x3.0x3.0 ? cm. The serosa is truong/pink smooth and glistening. The ectocervical mucosa is truong ? and glistening and the cervical os is patent. The cervix and uterine body are ? bivalved to reveal a 2 cm in length truong, corrugated endocervical canal. No ? suspicious cysts or polyps are identified. The triangular endometrial cavity ? measures 4.0x2.8 cm and is surfaced by pale truong glistening endometrium averaging ? 0.3 cm in thickness. No exophytic or definitive invasive tumor is identified. ? The myometrium is truong and trabecular with a single well circumscribed white ? whorled intramural nodule measuring 1.8 cm in greatest dimension. Erecting Crane Operator ? sections are submitted. Summary of sections: A - anterior cervix and lower ? uterine segment; B - posterior cervix and lower uterine segment; C-F - anterior ? endomyometrium submitted sequentially from the lower uterine segment toward the ? fundus; G-J - posterior endomyometrium submitted sequentially from the lower ? uterine segment toward the fundus; K - intramural nodule; L - right and left ? parametrial soft tissue with the right side inked black. HBM/mbc ? Microscopic Description ? Sections of the uterine cervix show no squamous epithelial dysplasia or HPV ? viral cytopathic changes in the squamous epithelium. The endocervical zone shows ? squamous metaplastic changes and mild chronic inflammation. The endometrium is ? notable for extensive complex atypical hyperplasia; however, no invasive ? carcinoma is identified. Slides from the previous case ([id number]) were pulled ? and the section is notable for a small focus of well differentiated endometrial ? adenocarcinoma arising in a polyp. No similar tumor is present residually in the ? endometrium. There is a leiomyoma. The myometrium shows cystic atrophy in many ? regions as well as small foci of atypical complex hyperplasia. DGD/mbc ? Previous Pertinent History ? [id number], 08/01/2015. ENDOMETRIAL POLYP: Fragments of endometrial polyp with ? small focus of well differentiated endometrioid adenocarcinoma. See comment. ? ([facility]) ? Procedures/Addenda ? us Bre Estrada MD PATHOLOGY/CYTOLOGY TOSHA ARSHAD Final Result [facility]
[address] [place] [address], * Type and screen (08/28/2015 7:28 AM EST) ABORH O Rh Positive [facility] Antibody Screen Negative [facility] Blood specimen (specimen) 08/28/2015 7:28 AM EST 08/28/2015 7:54 AM EST Narrative [facility] - 08/28/2015 8:16 AM EST Specimen Type : Blood Bre Estrada MD BLOOD BANK TEST ORDERAB LES Edited Result - Final Performing Organization Address City/[facility]/ZIP Co de Phone Number [facility]
[address] [place] [address], * POCT glucose fingerstick (08/28/2015 7:24 AM EST) Pathologist [facility] Glucose 90 70 - 100 mg/dL [facility] Blood specimen (specimen) 08/28/2015 7:24 AM EST 08/28/2015 7:28 AM EST Narrative [facility] - 08/28/2015 7:28 AM EST Specimen Type : Blood Bre Estrada MD POINT OF CARE TEST ORDE RABLES Final Result Performing Organization Address City/[facility]/ZIP Co de Phone Number [facility]
[address] [place] [address], * SCANNED EKG (08/28/2015) [facility] ECG ORDERABLES Final Result * (ABNORMAL) Comprehensive metabolic panel (08/27/2015 1:02 PM EST) Glucose 91 70 - 100 mg/dL [facility] BUN 13 9 - 23 mg/dL [facility] Creatinine 0.7 0.6 - 1.3 mg/dL [facility] Sodium 143 132 - 146 mmol/L [facility] Potassium 4.1 3.5 - 5.5 mmol/L [facility] Chloride 104 99 - 109 mmol/L [facility] CO2 29 20 - 31 mmol/L [facility] Calcium 10.1 8.7 - 10.4 mg/dL [facility] Alkaline Phosphatase 78 25 - 100 Units/L [facility] AST (SGOT) 15 0 - 33 Units/L [facility] ALT (SGPT) 18 7 - 40 Units/L [facility] Total Bilirubin 0.2(L) 0.3 - 1.2 mg/dL [facility] Total Protein 8.0 5.7 - 8.2 g/dL [facility] Albumin 4.3 3.2 - 4.8 g/dL [facility] eGFR 93 ml/min/1.7 32 [facility] Comment: ?? National Kidney Foundation Guidelines ?Stage ? Description ?GFR ?1 ?Normal or High ? 90+ ?2 ?Mild decrease ? 60-89 ?3 ?Moderate decrease ?30-59 ?4 ?Severe decrease ?15-29 ?5 ?Kidney failure ?<15 Anion Gap 10 3 - 11 mmol/L [facility] Blood specimen (specimen) 08/27/2015 1:02 PM EST 08/27/2015 1:09 PM EST Narrative [facility] - 08/27/2015 1:28 PM EST Specimen Type : Blood Bre Estrada MD LAB BLOOD ORDERABLES Fi nal Result [facility]
[address] [place] [address], * (ABNORMAL) CBC and Differential (08/27/2015 1:02 PM EST) WBC 10.16 3.50 - 10.80 K/[facility] RBC 4.03 3.89 - 5.14 [facility] Hemoglobin 11.3(L) 11.5 - 15.5 g/dL [facility] Hematocrit 36.0 34.5 - 44.0 % [facility] MCV 89.3 80.0 - 99.0 fL [facility] MCH 28.0 27.0 - 31.0 pg [facility] MCHC 31.4(L) 32.0 - 36.0 g/dL [facility] RDW-CV 14.2 11.3 - 14.5 % [facility] Platelets 288 150 - 450 [facility] Neutrophils Absolute 6.91 1.50 - 8.30 [facility] Lymphocytes Absolute 1.73 0.60 - 4.80 [facility] Monocytes Absolute 1.09(H) 0.00 - 1.00 [facility] Eosinophils Absolute 0.38(H) 0.10 - 0.30 [facility] Basophils Absolute 0.03 0.00 - 0.20 [facility] nRBC 0.0 [facility] Neutrophil Rel % 68.1 41.0 - 71.0 % [facility] Lymphocyte Rel % 17.0(L) 24.0 - 44.0 % [facility] Monocyte Rel % 10.7 0.0 - 12.0 % [facility] Eosinophil Rel % 3.7(H) 0.0 - 3.0 % [facility] Basophil Rel % 0.3 0.0 - 1.0 % [facility] Immature Granulocyte Rel % 0.2 0.0 - 0.6 % [facility] Blood specimen (specimen) 08/27/2015 1:02 PM EST 08/27/2015 1:11 PM EST Narrative [facility] - 08/27/2015 1:16 PM EST Specimen Type : Blood Bre Estrada MD LAB BLOOD ORDERABLES Fi nal Result [facility]
[address] [place] [address], documented in this encounter Visit Diagnoses Not on filedocumented in this encounter Care Teams Respiratory Care Specialist Relationship Specialty Start Date End Date Cristiane Shirley MD [address] [place] [address] PCP - General 08/27/15 09/07/15 documented as of this encounter
--- OUTSIDE RECORDS SUMMARY | 2024-07-22 15:55 | XMS_ITS | Encounter Summary ---
Author Organization [place] [address] Care Team Providers Care Pipefitter Welder Name Role Phone Garett Holt MD Unavailable [phone] Ruiz Stokes MD Unavailable [phone] Yenny Schwab MD Unavailable [phone] Abel Pretty MD Primary Care Provider Reason for Visit * Reason Onset Date Comments Medication Refill 06/08/2024 Encounter Details Date Type Department Care Team (Late st Contact Info) Description 06/08/2024 Refill [facility] [address] [place] [address] Abel Pretty MD [address] [place] [address] Medication Refill Social History Tobacco Use Types Packs/Day Years Used Date Smoking Tobacco: Former Cigarettes 1.5 13 0 09/08/1971 - 09/07/1984 Passive Smoke Exposure: Current Smokeless Tobacco: Never Alcohol Use Standard Drinks/Week Comments No 0 (1 standard drink = 0.6 oz pur e alcohol) Overall Financial Resource Strain (CARDIA) Answe r Date Recorded How hard is it for you to pa y for the very basics like food, housing, medical care, and heating? Not very hard 02/07/2021 PHQ-2 Answer Date Recorded PHQ-2 Total Score 0 01/03/2024 [facility] - Occupational Stress Questionnaire Answer Date Recorded Do you feel stress - tense, restless, nervous, or anxious, or unable to sleep at night because your mind is troubled all the time - these days? Only a little 02/07/2021 Exercise Vital Sign Answer Date Recorde d On average, how many days pe r week do you engage in moderate to strenuous exercise (like a brisk walk)? 3 days 02/07/2021 On average, how many minutes do you engage in exercise at this level? 20 min 02/07/2021 Hunger Vital Sign Answer Date Recorded Within the past 12 months, y ou worried that your food would run out before you got the money to buy more. Never true 02/08/20 21 Within the past 12 months, t he food you bought just didn't last and you didn't have money to get more. Never true 02/07/2021 PRAPARE - Transportation Answer Date Re corded In the past 12 months, has l ack of transportation kept you from medical appointments or from getting medications? Yes 10/2020 In the past 12 months, has l ack of transportation kept you from meetings, work, or from getting things needed for daily living? Yes 02/07/2021 Sexually Active Control Partners Comments Not Currently Post-menopausal Male Comments No Sex and Gender Information Value Date Recorded Sex Assigned at Not on file Legal Sex Female 10:34 PM EDT Gender Identity Not on file Sexual Orientation Not on file Occupation Industry Job Start Date Job End Date disabled Not on file Not on file Not on file documented as of this encounter Functional Status * Is the person deaf or does he/she have serious difficulty hearing? Answer Date of Assessment Author No 01/03/2024 10:47 AM Rodolfo Dill MA * Is the person blind or does he/she have serious difficulty seeing even when wearing glasses? Answer Date of Assessment Author No 01/03/2024 10:47 AM Rodolfo Dill MA * Does this person have serious difficulty walking or climbing stairs? Answer Date of Assessment Author Yes 01/03/2024 10:47 AM EDT Rodolfo Skelton MA * Does this person have difficulty dressing or bathing? Answer Date of Assessment Author Yes 01/03/2024 10:47 AM EDT Rodolfo Skelton MA * Because of a physical, mental or emotional condition, does this person have difficulty doing errands alone such as visiting a doctor's office or shopping? Answer Date of Assessment Author Yes 01/03/2024 10:47 AM EDT Rodolfo Skelton MA documented as of this encounter Mental Status * Because of a physical, mental or emotional condition, does this person have serious difficulty concentrating, remembering or making decisions? Answer Entry Date Author No 01/03/2024 10:47 AM EDT Rodolfo Skelton MA documented in this encounter Ordered Prescriptions Prescription Sig Dispense Quantity Refills Last Filled Start Date End Date fUROsemide (LASIX) 40 mg Oral TabletIndications:L ower extremity edema,Venous stasis dermatitis of left lower extremity One tab twice a day as needed. 60 Tablet 2 06/08/2024 documented in this encounter Plan of Treatment Upcoming Encounters Date Type Department Care Team (Late st Contact Info) Description 07/29/2024 9:00 AM EST Appointment [facility] [address] [place] [address] Jomar Kim MD [address] [place] [address] documented as of this encounter Goals Goal Patient Goal Type Associated Problems Recent Progress Patient-Stated? Author Blood Pressure < 140/90 Blood Pressure 110/72(04/09 2:44 PM EDT) No Rachel Rogers, [place] BMI (Calculated) < 30 General 50.9(2023 2:44 PM EDT) No Rachel Rogers RMA Eat better, exercise, reach an ideal body weight General No Ni Clinton, occupational therapy instructor Healing General On track(12/03 9:18 AM EDT) No Bessie Morse RN Note: Wound volume reduction goals ?? 50% by week 4 ?? 50% by week 8 ?? 80% by week 12 ?? 100% by week 14 Problem Interventions ?? Assess pain status. ?? Assess wound size, kathi wound, drainage and odor. ?? Educate patient and caregivers on signs and symptoms of infection, wound care and importance of prompt treatment. ?? Assess patient/caregiver level of knowledge regarding diabetes, risk factors and diabetic foot care. ?? Assess for peripheral edema. If present , measure ankle, calf and foot circumference on initial visit and as indicated. ?? Assess pedal pulses on each visit. Use doppler if unable to palpate dorsalis pedal or posterior tibial pulses. ?? Obtain initial physician orders for Diabetic Wounds to include HgbA1C, prealbumin, offloading, ankle-brachial index per vascular lab and appropriate dressing to maintain microenvironment conducive to healing. ?? Assess for signs and symptoms of peripheral neuropathy weekly. ?? Refer to PCP and/or Utility Porter, Vascular Specialist as indicated. ?? Monitor patient compliance with wound care, diabetes management and proper offloading. Patients abdominal discomfort will improve or resolve by next follow up call from RN CC. General Not on track(03/09 11:41 AM EDT) No Joselyn Chance RN Stay Tobacco Free Lifestyle On track(02/07 10:23 AM EDT) No Wendy Espinoza LPN HEMOGLOBIN A1C < 7.0 Result Component 5.6( 024 3:04 PM EST) No Rachel Rogers RMA documented as of this encounter Visit Diagnoses Diagnosis Lower extremity edema Edema Venous stasis dermatitis of left lower extremity Type 2 diabetes mellitus without complication, without long-term current use of insulin (HCC) documented in this encounter Discontinued Medications Medication Sig Discontinue Reason Start Date End Da te fUROsemide (LASIX) 40 mg Oral TabletIndications:Lower extremity edema,Venous stasis dermatitis of left lower extremity One tab twice a day as needed. Reorder 01/03/2024 06/08/2024 documented as of this encounter Additional Health Concerns Assessment Noted Time A fall risk assessment has been complete d for the patient 11/08/2023 9:11 AM EST documented as of this encounter Care Teams Pipefitter Welder Relationship Specialty Start Date End Date Abel Pretty MD [address] [place], [place] [id number] PCP - General Family Medicine 12/30/23 Garett Holt MD Internal Medicine-Gastroenterology 12/22/12 Ruiz Stokes MD [address] [place] [address] Internal Medicine-Cardiovascular Disease 07/25/14 Yenny Schwab MD [address] [facility] [address] [place] [address] Internal Medicine-Rheumatology 12/11/16 documented as of this encounter
--- OUTSIDE RECORDS SUMMARY | 2024-07-22 15:55 | XMS_ITS | Clinical Summary ---
Author Organization [facility] Address [address] [place] [address] Phone Care Team Providers Care Ear Machine Operator Name Role Phone Garett Holt MD Unavailable [phone] Ruiz Stokes MD Unavailable [phone] Yenny Schwab MD Unavailable [phone] Abel Pretty MD Primary Care Provider Allergies Active Allergy Reactions Criticality Noted Date Comments Amitriptyline Nausea And Vomiting 07/01/2017 Amoxicillin Hives 07/11/2016 Clarithromycin 01/06/2017 hives Clindamycin Nausea Only 06/27/2017 Egg Nausea Only 04/16/2020 Naproxen Rash 11/19/2016 Esomeprazole Magnesium Hives,Rash 04/13/2015 Blisters in Mouth Spironolactone Nausea And Vomiting,Myalgia Medium 06/08/2022 Medications CALCIUM ORAL Take 1 Tab by mouth daily. Active cholecalciferol, vitamin D3, (VITAMIN D3) 25 mcg (1,000 unit) Oral Tablet Take 1 Tab by mouth daily. 30 Tab 11 0 Active albuterol (PROVENTIL) 2.5 mg /3 mL (0.083 %) Inhl Solution for NebulizationIndi cations:Acute bronchitis, unspecified organism Take 3 mL by nebulization every 4 hours as needed for Wheezing. 1 box 6 1 Active Nebulizer Accessories [facility] KitIndications:A cute bronchitis, unspecified organism Nebulizer accessories 1 Kit 1 Active oxybutynin (DITROPAN-XL) 10 mg Oral Tablet Extended Rel 24 hr Take 1 Tablet by mouth daily. 90 Tablet 2 2 Active loratadine (CLARITIN) 10 mg Oral TabletIndication s:Seasonal allergic rhinitis due to pollen Take 1 tablet by mouth once daily 63 Tablet 2 Active olopatadine (PATANOL) 0.1 % Opht DropsIndications :Allergic conjunctivitis, bilateral Place 1 Drop into both eyes 2 times daily. Administer drops in both eyes. 5 mL 2 Active Blood-Glucose Meter [facility] KitIndications:T ype 2 diabetes mellitus without complication, without long-term current use of insulin ([facility]) Per formulary. Dx. E11.9 1 Kit 2 Active Blood Sugar Diagnostic [facility] StripIndications :Type 2 diabetes mellitus without complication, without long-term current use of insulin ([facility]) 1 Strip by [facility].(Non-Drug; Combo Route) route 2 times daily. Per formulary. Dx: E11.9 100 Each 2 Active Lancets [facility] MiscIndications: Type 2 diabetes mellitus without complication, without long-term current use of insulin ([facility]) 1 Each by [facility].(Non-Drug; Combo Route) route 2 times daily. Per formulary. Dx: E11.9 100 Each 2 Active fluticasone propionate (FLONASE) 50 mcg/actuation Nasl [place], SuspensionIndica tions:ETD (Eustachian tube dysfunction), right Use 1 spray(s) in each nostril once daily 16 g 3 Active ONETOUCH DELICA PLUS LANCET 33 gauge [facility] USE TO CHECK GLUCOSE TWICE DAILY 3 Active tiZANidine (ZANAFLEX) 4 mg Oral TabletIndication s:Muscle spasm Take 1 Tablet by mouth 3 times daily as needed. 30 Tablet 3 Active aspirin 81 mg Oral Tablet, Delayed Release (E.C.) Take 1 Tablet by mouth daily. 90 Tablet 2 3 Active docusate sodium (COLACE) 100 mg Oral Capsule Take 1 Capsule by mouth 2 times daily. 60 Capsule 2 3 Active trospium (SANCTURA) 20 mg Oral TabletIndication s:Urinary frequency,OAB (overactive bladder) Take 1 Tablet by mouth 2 times daily. 60 Tablet 5 3 Active Blood-Glucose Meter,Continuous (DEXCOM G7 LABORATORY MACHINIST) [facility] MiscIndications: Type 2 diabetes mellitus without complication, without long-term current use of insulin ([facility]),Severe diabetic hypoglycemia (HCC) 1 Each by [facility].(Non-Drug; Combo Route) route as needed. 1 Each 11 3 Active Blood-Glucose Sensor (DEXCOM G7 SENSOR) [facility] DeviceIndication s:Type 2 diabetes mellitus without complication, without long-term current use of insulin ([facility]),Severe diabetic hypoglycemia (HCC) 1 Each by [facility].(Non-Drug; Combo Route) route as needed. 1 Each 11 3 Active ondansetron (ZOFRAN-ODT) 4 mg Oral Tablet, Rapid DissolveIndicati ons:Nausea and vomiting, unspecified vomiting type Take 1 Tablet by mouth every 8 hours as needed for Nausea. 15 Tablet 3 Active albuterol (PROVENTIL HFA;VENTOLIN HFA) 90 mcg/actuation Inhl HFA Aerosol InhalerIndicatio ns:Chronic bronchitis, unspecified chronic bronchitis type (HCC) Inhale 2 Puffs into the lungs every 4 hours as needed for Wheezing. 1 Each 2 3 Active empagliflozin (JARDIANCE) 10 mg Oral Tablet Take 1 Tablet by mouth daily. 21 Tablet 4 Active dapagliflozin propanediol (FARXIGA) 10 mg Oral TabletIndication s:Type 2 diabetes mellitus without complication, without long-term current use of insulin (HCC) Take 1 Tablet by mouth daily. 30 Tablet 2 4 Active meloxicam (MOBIC) 15 mg Oral TabletIndication s:Bilateral hip pain Take 1 tablet by mouth once daily 30 Tablet 4 Active spironolactone (ALDACTONE) 25 mg Oral Tablet Take 1 tablet by mouth once daily 90 Tablet 2 4 Active hydroCHLOROthiaz urvashi 25 mg Oral Tablet Take 50 mg by mouth daily. 4 Active lisinopriL (PRINIVIL;ZESTRI L) 10 mg Oral Tablet Take 1 tablet by mouth once daily 90 Tablet 1 4 Active atorvastatin (LIPITOR) 20 mg Oral Tablet Take 1 tablet by mouth once daily 90 Tablet 3 4 Active glipiZIDE (GLUCOTROL) 5 mg Oral TabletIndication s:Type 2 diabetes mellitus without complication, without long-term current use of insulin (HCC) Take 1 tablet by mouth once daily 90 Tablet 1 4 Active hydroCHLOROthiaz urvashi 50 mg Oral TabletIndication s:Localized swelling of both lower legs,Lower extremity edema Take 1 Tablet by mouth 2 times daily. 60 Tablet 2 4 Active sucralfate (CARAFATE) 100 mg/mL Oral Suspension Take 10 mL by mouth 4 times daily. 414 mL 3 4 Active fUROsemide (LASIX) 40 mg Oral TabletIndication s:Lower extremity edema,Venous stasis dermatitis of left lower extremity One tab twice a day as needed. 60 Tablet 2 4 Active RABEprazole (ACIPHEX) 20 mg Oral Tablet, Delayed Release (E.C.) Take 1 Tablet by mouth 2 times daily (before meals). 60 Tablet 3 4 Active Active Problems Patient Care Coordination No te Formatting of this note migh t be different from the original. [facility] audit completed by Brynn Wu RN on 09/23/2023. Problem Noted Date Diagnosed Date Chronic bronchitis 07/16/2023 Epigastric pain 09/10/2020 Periumbilical abdominal pain 07/18/2020 Overview (07/18/2020): Added automatically from request for surgery [id number] Atherosclerosis of aorta 03/18/2019 PMR (polymyalgia rheumatica) 03/18/2019 Venous stasis dermatitis of left lower extremity 11/19/2018 Obesity, Class III, BMI 40-49.9 (morbid obesity) 03/24/2017 Type 2 diabetes mellitus without complication History of endometrial cancer 11/15/2015 Overview (11/15/2015): Had endometrial cancer. She had complete hysterectomy 08/2015. She sees dr Bre Selby [facility] the [facility] (obstructive sleep apnea) 12/28/2014 Ventral hernia 2014 Osteoarthrosis, unspecified whether generalized or localized, unspecified site Incisional hernia, incarcerated Resolved Problems Problem Noted Date Diagnosed Date Resolved Date Lower extremity edema 03/18/20192019 ETD (Eustachian tube dysfunction), right 03/18/2019 04/17/2020 High cholesterol 02/11/2019 04/17/2020 Skin ulcer of left ankle wit h fat layer exposed 11/19/2018 12/10/2018 Dizziness 03/14/2017 04/17/2020 Temporal arteritis 01/17/2017 4 Chronic headache 11/22/2016 04/17/2020 Endometrial hyperplasia 03/15/201504/08 Endometrial hyperplasia 03/14/201504/08 Overview (03/27/2015): Endometrial biopsy done 03/27/2015. DDD (degenerative disc disease), lumbosacral 5 04/17/2020 Diabetes mellitus 12/28/2014 01/06/2018 Hiatal hernia 08/09/2014 04/17/2020 Chest pain 01/01/2014 07/09/2016 Acute coronary syndrome 01/01/2014 11/0 09/2015 Chest discomfort 03/15/2013 07/09/2016 Leg pain, right 03/12/2013 04/17/2020 SOB (shortness of breath) 03/12/2013 Systolic murmur 03/12/2013 04/17/2020 Dysphagia 02/17/2013 04/17/2020 Encounter for screening colonoscopy 02/17/2013 04/17/2020 Esophageal reflux 04/17/2020 Encounters Date Type Department Care Team Description 06/22/2024 Patient Outreach [facility] [address] [place] [address] Abel Pretty MD Central Order Completion Outreach (mammogram) 06/09/2024 9:43 AM EDT - 06/09/2024 11:59 PM EDT Hospital Encounter [facility] [address] [facility] [place], [place] [id number] Abel Pretty MD Localized swelling of both lower legs; Shortness of breath Discharge Disposition: Home or Self Care 06/08/2024 Refill [facility] [address] [place] [address] Jomar Kim MD Medication Refill 06/08/2024 Refill [facility] [address] [place] [address] Abel Pretty MD Medication Refill 06/08/2024 Refill [facility] [address] [place] [address] Cristiane Shirley MD Medication Refill 06/08/2024 Telephone [facility] [address] [place] [address] Abel Pretty MD Central Care Gap Outreach (Diabetic eye exam ) 04/27/2024 2:20 PM EDT [facility] [address] [place] [address] Jomar Kim MD Screening for colon cancer (Primary Dx) from Last 3 Months Immunizations Name Administration Dates Next Due Influenza Virus Vaccine Quad rivalant, Flublok 06/10/2019 Moderna SARS-CoV-2 Vaccine 1 2+ Yrs (Light blue border) 01/14/2021,12/17/2020 Pneumococcal Conjugate Vaccine 20 Valent 023 Pneumococcal Polysaccharide 23 Valent 12/01/2021 ,11/15/2015 Quadrivalent Influenza High Dose 05/31/2023,10/0 09/2021,07/14/2021 Tdap 05/31/2023,01/06/2013 Zoster Recombinant 12/01/2021 Surgical History Surgery Date Site/Laterality Comments COLONOSCOPY UPPER GASTROINTESTINAL ENDOSCOPY UPPER GASTROINTESTINAL ENDOSCOPY 02/17/2013 N/A N/A Surgeon: Garett Holt MD; Location: [facility]; Service: COLONOSCOPY 02/17/2013 N/A N/A Surgeon: Garett Holt MD; Location: [facility]; Service: CHOLECYSTECTOMY 09/08/1989 - 09/07/1990 CARDIAC CATHETERIZATION 04/08/2015 - 05/08/2015 DENTAL SURGERY upper and lower teeth removed ARTERY BIOPSY 01/06/2017 Right RIGHT TEMPORAL ARTERY BIOPSY ; Surgeon: Christa Chavez MD; Location: [facility] MA[facility] OR; Service: General VENTRAL HERNIA REPAIR 04/18/2020 N/A DAVINCI ROBOTIC VENTRAL HERNIA REPAIR WITH MESH ; Surgeon: Regan Butts MD; Location: [facility] MAIN OR; Service: General Medical devices from this surgery are in the Medical Devices section. UPPER GASTROINTESTINAL ENDOSCOPY 07/26/2020 N/A ESOPHAGOGASTRODUODENOS COPY with biopsy; Surgeon: Jomar Kim MD; Location: [facility]; Service: Endoscopy Medical History Medical History Date Comments Shortness of breath Asthma Other and unspecified angina pectoris Heartburn nausea after eat ing Ulcer Arthritis all over Neuromuscular disorder (HCC) fat ty tissue muscle left arm Anemia on iron Hyperlipidemia Hypertension Clotting disorder (HCC) Fibromyalgia Sleep apnea SHOULD WEAR CPAP OR BIPAP PER PATIENT Cancer (HCC) OVARIAN Ankle swelling Hiatal hernia Diabetes mellitus (HCC) 2014 borderli ne, type 2 Family History Medical History Relation Name Comments Cataracts Father Diabetes Father Heart Disease Father Cancer Maternal Grandmother Colon Cancer Maternal Grandmother Anesth Problems Neg Hx Relation Name Status Comments Brother Alive Father Maternal Grandmother Mother Sister Alive Social History Tobacco Use Types Packs/Day Years Used Date Smoking Tobacco: Former Cigarettes 1.5 13 0 09/08/1971 - 09/07/1984 Passive Smoke Exposure: Current Smokeless Tobacco: Never Tobacco Cessation:Counseling Given: Not Answered Alcohol Use Standard Drinks/Week Comments No 0 (1 standard drink = 0.6 oz pur e alcohol) Overall Financial Resource Strain (CARDIA) Answe r Date Recorded How hard is it for you to pa y for the very basics like food, housing, medical care, and heating? Not very hard 02/07/2021 PHQ-2 Answer Date Recorded PHQ-2 Total Score 0 01/03/2024 [facility] [place] of Occupat ional Health - Occupational Stress [...] file Not on file Not on file Obstetrics History Para Term AB IAB SAB Ectopic Multiple Livin g Live Births 2 2 2 2 2 Date Outcome GA Total Labor Labor/2nd/3rd Weight Sex Type Anes PTL Deidra A1 A5 Name Clin 1991 Term 40w 0d F Vag-S pont Epidura l Living Complications:None 1993 Term 40w 0d M Vag-S pont Epidura l Living Complications:None Last Filed Vital Signs Vital Sign Reading Time Taken Comments Blood Pressure 110/72 04/27/2024 2:44 PM EDT Pulse 80 04/27/2024 2:44 PM EDT Temperature 36.7 ??C (98.1 ??F) 03/27/2024 9:27 PM ED T Respiratory Rate 20 03/27/2024 9:27 PM EDT Oxygen Saturation 97% 03/28/2024 12:30 AM EDT Inhaled Oxygen Concentration - - Weight 122 kg (269 lb) 04/27/2024 2:44 PM EDT pe r patient Height 154.9 cm (5' 1 ) 04/27/2024 2:44 PM EDT Body Mass Index 50.83 04/27/2024 2:44 PM EDT Plan of Treatment Upcoming Encounters Date Type Department Care Team (Late st Contact Info) Description 07/29/2024 9:00 AM EST Appointment [facility] [address] [place] [address] Jomar Kim MD [address] [place] [address] Health Maintenance Due Date Last Done Comments Cologuard 2001 FIT 2001 Sigmoidoscopy 2001 Virtual Colonography 2001 Breast Cancer Screening 11/14/2017 11/15/19 16 (Declined), 07/08/2012, 12/18/2006 Zoster (2 of 2) 01/26/2022 12/01/2021 Colon Cancer Screening 02/17/2023 Colonoscopy 02/17/2023 02/17/2013 Microalbuminuria 01/11/2024 01/10/2023, 09/2021, 05/25/2020, Additional history exists COVID-19 Vaccine (3 - 2023-2 5 season) 2024 01/14/2021, 12/17/2020 Influenza Vaccine (#1) 2024 , 06/08/2022, 07/14/2021, Additional history exists Lipids 05/31/2024 05/31/2023, 05/10, 07/27/2022, Additional history exists Wellness Exam Medicare 07/19/2024 07/19/2023, 2019 Diabetic Eye Exam 07/28/2024 07/28/2022, 06/17/2018 Hemoglobin A1c 12/28/2024 06/29/2024, 03/0 11/2023, 11/09/2023, Additional history exists RSV or 60+ (1 - Ris k 60-74 years 1-dose series) 01/02/2025 Postponed fro m 2016 (Insurance/Financial) DTaP/TDaP/Td (3 - Td or Tdap) 05/31/2033 05/31/2023, 01/06/2013 Hepatitis C Screening Completed 12/11/2016 Bone Density Screening Completed 01/30/2017, 2016 Pneumococcal Vaccine 65+ Completed 023, 12/01/2021, 11/15/2015 Hepatitis B Vaccine Aged Out No longe r eligible based on patient's age to complete this topic Goals Goal Patient Goal Type Associated Problems Recent Progress Patient-Stated? Author Blood Pressure < 140/90 Blood Pressure 110/72(04/09 2:44 PM EDT) No Rachel Rogers RMA BMI (Calculated) < 30 General 50.9(2023 2:44 PM EDT) No Rachel Rogers RMA Eat better, exercise, reach an ideal body weight General No Ni Clinton RN Wound Healing General On track(12/03 9:18 AM EDT) [...] neuropathy weekly. ?? Refer to PCP and/or [facility], Vascular Specialist as indicated. ?? Monitor patient [...] Result Component 5.6( 024 3:04 PM EST) Yu Rogers Rachelkathrin Peck [employer] Medical Devices Implanted Type Area Slp Device Identifier Shelf Expiration Date Model / Serial / Lot Mesh Srg Ventralight St Echo 2 [id number] Ellipse 6x8in - [id number] Implanted:Qty: 1 on 04/18/2020 by Regan Butts MD at [facility] N/A: Abdomen CR BARD:MEDICAL [id number] 11/05/2020 [id number] / / [id number] Procedures Procedure Name Priority Date/Time Associated Diagnosis Comments SCANNED LABS 07/04/2024 8:13 PM EDT EC ECHOCARDIOGRAM COMPLETE W DOPPLER AND COLOR FLOW MAPPING Routine 06/09/2024 10:55 AM EDT Localized swelling of both lower legs Shortness of breath HEMOGLOBIN A1C Routine 11/09/2023 3:04 PM EST Type 2 diabetes mellitus without complication, without long-term current use of insulin (HCC) LIPID PANEL REFLEX Routine 05/31/2023 9: 56 AM EDT Type 2 diabetes mellitus without complication, without long-term current use of insulin (HCC) POCT URINE MICROALBUMIN Routine 01/10/2023 11:22 AM EDT Type 2 diabetes mellitus without complication, without long-term current use of insulin (HCC) HM DIABETES EYE EXAM Routine 06/17/2018 DX BONE DENSITY AXIAL SKELETON Routine 01/30/2017 10:35 AM EDT Age-related osteoporosis without current pathological fracture HEPATITIS C ANTIBODY IGM + IGG Routine 12/11/2016 11:46 AM EDT Joint stiffness [facility] EGD-COLONOSCOPY Routine 02/17/2013 7:15 AM EDT MM MAMMO DIGITAL SCREENING W CAD BILAT Routine 07/08/2012 4:38 PM EDT Other screening mammogram from Last 3 Months or Most Recently Relevant to Health Maintenance Results * SCANNED LABS (07/04/2024 8:13 PM EDT) 07/04/2024 8:13 PM EDT us Unknown Provider HEMATOLOGY ORDERABLES Final Res ult * EC ECHOCARDIOGRAM COMPLETE W DOPPLER AND COLOR FLOW MAPPING (06/09/2024 10:55 AM EDT) Ejection Fraction 55-60% PYRAMIS MITRAL REGURGITATION trace PYRAMIS AORTIC STENOSIS no PYRAMIS LV DIASTOLIC PLAX 4.2 cm PYRAMIS Anatomical Region Laterality Modality Electrocardiogra phy 06/09/2024 10:0 8 AM EDT Impressions 06/09/2024 11:05 AM EDT Conclusions ??* Left ventricular chamber dimension is normal. ??* Left ventricular function is normal with an estimated ejection fraction of 55-60%. ??* The left ventricular diastolic function is normal. ??* Right ventricular systolic function is normal, with a tricuspid annular plane systolic excursion of 2.7 cm and a RV s' of 13.6 cm/s. ??* Unable to estimate pulmonary arterial systolic pressure due to lack of tricuspid regurgitation jet. Narrative Procedure Note Miles Rodriguez MD - 06/09/2024 IMPRESSION Conclusions * Left ventricular chamber dimension is normal. * Left ventricular function is normal with an estimated ejectionfraction of 55-60%. * The left ventricular diastolic function is normal. * Right ventricular systolic function is normal, with a tricuspidannular plane systolic excursion of 2.7 cm and a RV s' of 13.6 cm/s. * Unable to estimate pulmonary arterial systolic pressure due to lackof tricuspid regurgitation jet. us Abel Pretty MD IMG ECHO ORDERABLES Fin al Result * HEMOGLOBIN A1C (11/09/2023 3:04 PM EST) Hgb A1C 5.6 4.2 - 5.6 % 11/09/2023 8:22 PM EST [facility] [employer] [facility] Est. Avg Glucose 114 mg/dL 11/09/2023 8:22 PM EST [facility] [employer] [facility] Blood VENOUS BLOOD / Unknown Venipuncture / Unknown 11/09/2023 3:04 PM EST 11/09/2023 3:04 PM EST Narrative [facility] [employer] [facility] - 11/09/2023 8:22 PM EST REFERENCE RANGE: Normal: 4.0-5.6% Pre-diabetes: 5.7-6.4% Provisional diagnosis of diabetes: >6.4% Hgb F>10% and anything which shortens red cell survival, such as hemolytic anemia, or unstable hemoglobin variants such as HbSS, HbSC, or HbCC, will lower the HbA1c value associated with a given level of glycemic control. ? us Cristiane Shirley MD CHEMISTRY ORDERABLES Final Res ult [facility] [employer] [facility] [address] , [place] [address] * (ABNORMAL) LIPID PANEL REFLEX (05/31/2023 9:56 AM EDT) [facility] Signature Cholesterol 176 <200 mg/dL 05/31/2023 2:48 PM EDT [facility] [employer] [facility] Comment: < 200 ?Desirable 200 - 239 ? Borderline High >= 240 ?High Triglyceride 130 <150 mg/dL 05/31/2023 2:48 PM EDT [employer] [facility] Comment: < 150 ? Normal 150 - 199 ?Borderline High 200 - 499 ?High ??>= 500 ? Very High HDL 46 >=40 mg/dL 05/31/2023 2:48 PM EDT [employer] [facility] Comment: ??> 60 ?Optimal 40 - 60 ?Acceptable ?? < 40 ?Low LDL Calculated 107(H) <100 mg/dL 05/31/2023 2:48 PM EDT [facility]REF[facility] [employer] Non-HDL-C Calculated 130(H) <=129 mg/dL 05/31/2023 2:48 PM EDT [facility] [employer] Comment: <130 ?Desirable 130-159 Above Desirable 160-189 Borderline High 190-219 High >= 220 ??Very High Fasting Specimen? Unknown None 023 2:48 PM EDT [facility] Blood VENOUS BLOOD / Unknown Venipuncture / Unknown 05/31/2023 9:56 AM EDT 05/31/2023 9:56 AM EDT us Cristiane Shirley MD CHEMISTRY ORDERABLES Final Res ult Performing Organization Address City/[facility]/ZIP Co de Phone Number [facility] [employer] [address], [place] [address] [facility] [address] [place] [id number] * POCT URINE MICROALBUMIN (01/10/2023 11:22 AM EDT) Microalb, Ur 10 mg/L 01/10/2023 11:25 AM EDT [facility] Creatinine Urine 100 mg/dL 01/10/2023 11:25 AM EDT [facility] Microalb/Cleat Layer. Ratio <30 <30 mg/g 01/10/2023 11:25 AM EDT [facility] Urine URINE SPECIMEN COLLECTION / Unknown 01/10/2023 11:22 AM EDT 01/10/2023 11:25 AM EDT us Crisitane Shirley MD POINT OF CARE TEST ORDERABLES Final Result [place] [id number] * DIABETES EYE EXAM (06/17/2018) Left Diabetic Retinopathy Not Present Present/Not Present SEP OFFICE Right Diabetic Retinopathy Not Present Present/Not Present SEP OFFICE 06/17/2018 us Historical Provider HEALTH MAINTENANCE Final Res ult SEP OFFICE * DX BONE DENSITY AXIAL SKELETON (01/30/2017 10:35 AM EDT) Anatomical Region Laterality Modality Dexa Scan 01/30/2017 Narrative 02/01/2017 3:52 PM EDT Indication: The patient is presently being monitored while on treatment and requires a bone density assessment. Study was performed on [employer] 5. Bone Density: Region ?BMD ? T-score ? Z- score ?? AP Spine (L1-L4) ?1.045 ? 0.0 ? 1.4 ? Femoral Neck (Left) ? 0.777 ?-0.6 ? 0.7 ? Total Hip (Left) ?0.997 ? 0.5 ? 1.4 ? Femoral Neck (Right) ?0.834 ?-0.1 ? 1.2 ? Total Hip (Right) ? 1.010 ? 0.6 ? 1.5 ? 1/3 Radius (Left) ? 0.729 ? 0.6 ? 1.9 ? World Health Organization criteria for BMD interpretation classify patients as: Normal (T-score at or above -1.0), Low Bone Density (T-score between -1.0 and -2.5), or Osteoporotic (T-score at or below -2.5). T Scores are reported in Postmenopausal women and in men age 50 and older. ?? Z-scores are reported in females prior to menopause and in males younger than age 50. 10-year Fracture Risk: FRAX not reported because: ??All T-scores for Spine Total, Hip Total, Femoral Neck at or above -1.0 ??Treated for osteoporosis Clinical Information Provided by Patient: Has had a low trauma fracture. Is being treated for osteoporosis. Has taken a bisphosphonate within the last two years. Has used or is currently using the following medications: Calcium, Vitamin D, Diuretic, Thyroid medication Has had or currently has the following medical conditions: Asthma, Emphysema, or COPD, Diabetes Mellitus, Back pain, Hip pain, Vitamin D Insufficiency Patient maximum height was 60. Menopause Age: 56 Patient is postmenopausal Interpretation: Bone mineral density is in the normal range. A minimum of two years may be required between bone density studies due to inherent testing precision limitations. Intervals between BMD testing should be determined according to each patient's clinical status. The spine portion of the study is limited by patient body habitus with elevated TH value. Reported by: Amy Guerin PA-C, [facility] on 01/30/2017 3:24:00 PM. Yenny Schwab MD IMG DEXA ORDERABLES Final Result * HEPATITIS C ANTIBODY IGM + IGG (12/11/2016 11:46 AM EDT) Hep C Ab Negative Negative [facility] Blood specimen (specimen) 12/11/2016 11:46 AM EDT 12/11/2016 3:25 PM EDT Yenny Schwab MD IMMUNOLOGY ORDERABLES Fin al Result [facility] [address] [place] [address] * [facility] EGD-COLONOSCOPY (02/17/2013 7:15 AM EDT) 02/17/2013 7:15 AM EDT Impressions [facility] - 02/17/2013 10:33 AM EDT Plan: Await pathology results Screening Colonoscopy in 10 years. Follow-up office visit in 2 months Continue current medication for acid suppression/ dose 30 minutes before a meal This section is an excerpt of the full report, which can be found by clicking the hyperlink. us Garett Holt MD GI PROCEDURE ORDERABLES Fin al Result [facility] [address] [place] [address] * MM MAMMO DIGITAL SCREENING W CAD BILAT (07/08/2012 4:38 PM EDT) Anatomical Region Laterality Modality Breast Bilateral Mammography 07/10/2012 7:44 AM EDT Impressions 07/10/2012 8:22 AM EDT : No radiographic evidence of malignancy ([id number]) ~ RECOMMENDATION: Routine screening mammogram in 1 year. ~ * The patient with a palpable abnormality, unexplained by breast imaging, should be managed on clinical basis by the attending physician. * Breast imaging has a false negative rate of 15%. * The patient was notified by mail of the results of this examination. *The patient's information was entered into a reminder system with a target due date for the next mammogram. The mammogram was reviewed by a Radiologist and CAD. Narrative 07/10/2012 8:22 AM EDT Procedure:MM MAMMO DIGITAL SCREENING W CAD BILAT ~ Reason for exam: screening ??(asymptomatic). ~ MM MAMMO DIG SCREEN CAD BILAT Bilateral CC and MLO view(s) were taken. There are scattered fibroglandular densities. ??Compared to prior studies the most recent being 12-18-06 ~ Procedure Note Heriberto Del Real MD - 07/10/2012 Procedure:MM MAMMO DIGITAL SCREENING W CAD BILAT ~ Reason for exam: screening (asymptomatic). ~ MM MAMMO DIG SCREEN CAD BILAT Bilateral CC and MLO view(s) were taken. There are scattered fibroglandular densities. Compared to prior studies the most recent being 12-18-06 ~ IMPRESSION: No radiographic evidence of malignancy ([id number]) ~ RECOMMENDATION: Routine screening mammogram in 1 year. ~ * The patient with a palpable abnormality, unexplained by breast imaging, should be managed on clinical basis by the attending physician. * Breast imaging has a false negative rate of 15%. * The patient was notified by mail of the results of this examination. *The patient's information was entered into a reminder system with atarget due date for the next mammogram. The mammogram was reviewed by a Radiologist and CAD. us Viral Harjit V, DO IMG MAMMOGRAPHY ORDERABLES Fin al Result from Last 3 Months or Most Recently Relevant to Health Maintenance Insurance Advance Directives For more information, please contact: [phone] * Full Code (Latest Code Status on File) Date Activated Date Inactivated Comments 04/16/2020 11:27 PM 04/29/2020 12:51 AM * Full Code Date Activated Date Inactivated Comments 03/13/2017 5:23 PM 03/14/2017 6:01 PM Care Teams Ear Machine Operator Relationship Specialty Start Date End Date Abel Pretty MD [address] [place] [address] PCP - General Family Medicine 12/30/23 Garett Holt MD Internal Medicine-Gastroenterology 12/22/12 Ruiz Stokes MD [address] [place] [address] Internal Medicine-Cardiovascular Disease 07/25/14 Yenny Schwab MD [address] [facility] Building [address] [place] [address] Internal Medicine-Rheumatology 12/11/16
--- OUTSIDE RECORDS SUMMARY | 2024-07-22 15:55 | XMS_ITS | Encounter Summary ---
Author Organization [place] [address] Care Team Providers Care Heddler Name Role Phone Garett Holt MD Unavailable [phone] Ruiz Stokes MD Unavailable [phone] Yenny Schwab MD Unavailable [phone] Abel Pretty MD Primary Care Provider Reason for Referral * Mammography (Routine) - Pending Review Specialty Diagnoses / Procedures Referred By Contac t Referred To Contact Radiology Diagnoses Encounter for screening mammogram for malignant neoplasm of breast Procedures MM MAMMO DIGITAL SHILO SCREEN BILAT Abel Pretty MD [address] [place] [address] Phone: tel: fax: Referral ID Status Reason Start Date Expiration Date V isits Requested Visits Authorized [id number] Pending Review 06/22/2024 06/22/2026 1 1 Reason for Visit * Reason Onset Date Comments Central Order Completion Outreach 06/22/2024 mammogram Encounter Details Date Type Department Care Team (Late st Contact Info) Description 06/22/2024 Patient Outreach [facility] [address] [place] [id number] Abel Pretty MD [address] [place] [id number] Central Order Completion Outreach (mammogram) Social History Tobacco Use Types Packs/Day Years [...] Date Recorded PHQ-2 Total Score 0 01/03/2024 [facility] - Occupational Stress Questionnaire Answer Date Recorded [...] of Assessment Author No 01/03/2024 10:47 AM EDRodolfo Mcknight MA * Is the person blind or does he/she have serious difficulty seeing even when wearing glasses? Answer Date of Assessment Author No 01/03/2024 10:47 AM Rodolfo Dill MA * Does this person have serious difficulty walking or climbing stairs? Answer Date of Assessment Author Yes 01/03/2024 10:47 AM Rodolfo Dill MA * Does this person have difficulty dressing or bathing? Answer Date of Assessment Author Yes 01/03/2024 10:47 AM EDRodolfo Mcknight MA * Because of a physical, mental or emotional condition, does this person have difficulty doing errands alone such as visiting a doctor's office or shopping? Answer Date of Assessment Author Yes 01/03/2024 10:47 AM Rodolfo Dill MA documented as of this encounter Mental Status * Because of a physical, mental or emotional condition, does this person have serious difficulty concentrating, remembering or making decisions? Answer Entry Date Author No 01/03/2024 10:47 AM Rodolfo Dill MA documented in this encounter Progress Notes * Evelin Rivero RN - 06/22/2024 5:54 PM EDT SEP Order Completion Outcome Tracking Contact Attempt:: Final Mammogram Outcome:: Screening Scheduled During Order Completion Outreach, care gaps addressed are Annual Wellness Visit and Diabetic Labs. A1c Ordered, Annual Wellness Visit Scheduled 07/20/24, Lipid Panel with reflex ordered, and Microalbumin Ordered. Medicare questionnaire already completed 01/03/24. Spoke with patient's daughter, Clementina (on ICF). * Evelin Rivero RN - 06/22/2024 5:41 PM EDT SEP Order Completion Outcome Tracking Contact Attempt:: First Mammogram Outcome:: Left Message with Individual, MyChart Message, No Answer documented in this encounter Miscellaneous Notes * Addendum Note - Evelin Rivero RN - 06/22/2024 5:56 PM EDTAddended by: EVELIN RIVERO on: 06/22/2024 05:56 PM Modules accepted: Orders documented in this encounter Plan of Treatment Upcoming Encounters Date Type Department Care Team (Late st Contact Info) Description 07/29/2024 9:00 AM EST Appointment [facility] [address] [place], [place] [id number] Jomar Kim MD [address] [place] [address] Scheduled Orders Name Type Priority Associated Diagnoses Orde r Schedule MM MAMMO DIGITAL SHILO SCREEN BILAT Imaging Routine Encounter for screening mammogram for malignant neoplasm of breast 1 Occurrences starting 06/22/2024 until 06/22/2026 HEMOGLOBIN A1C Lab Routine Type 2 diabetes mellitus without complication, without long-term current use of insulin (HCC) 1 Occurrences starting 06/22/2024 until 06/22/2025 MICROALBUMIN/CREATININE RATIO URINE Lab Routine Type 2 diabetes mellitus without complication, without long-term current use of insulin (HCC) 1 Occurrences starting 06/22/2024 until 06/22/2025 LIPID PANEL REFLEX Lab Routine Type 2 diabetes mellitus without complication, without long-term current use of insulin (HCC) 1 Occurrences starting 06/22/2024 until 06/22/2025 documented as of this encounter Goals Goal Patient Goal Type Associated Problems Recent Progress Patient-Stated? Author Blood Pressure < 140/90 Blood Pressure 110/72(08/2 2:44 PM EDT) No Rachel Rogers RMA [...] neuropathy weekly. ?? Refer to PCP and/or Sheet Metal Operator, Vascular Specialist as indicated. ?? Monitor patient [...] as of this encounter Visit Diagnoses Diagnosis Encounter for screening mammogram for malignant neoplasm of breast- Primary Other screening mammogram Type 2 diabetes mellitus without complication, without long-term current use of insulin (HCC) documented in this encounter Additional Health Concerns Assessment Noted Time A fall risk assessment has been complete d for the patient 11/08/2023 9:11 AM EST documented as of this encounter Care Teams Heddler Relationship Specialty Start Date End Date Abel Pretty MD [address] [place] [address] PCP - General Family Medicine 12/30/23 Garett Holt MD Internal Medicine-Gastroenterology 12/22/12 Ruiz Stokes MD [address] [place] [address] Internal Medicine-Cardiovascular Disease 07/25/14 Yenny Schwab MD [address] [address] Internal Medicine-Rheumatology 12/11/16 documented as of this encounter
--- OUTSIDE RECORDS SUMMARY | 2024-07-22 15:55 | XMS_ITS | Referral Summary ---
Author Organization [facility] Address [address] [place] [address] Phone Care Team Providers Care Double Backer Name Role Phone Garett Holt MD Unavailable [phone] Ruiz Stokes MD Unavailable [phone] Yenny Schwab MD Unavailable [phone] Abel Pretty MD Primary Care Provider Encounters Date Type Department Care Team Description 06/22/2024 Patient Outreach [facility] [address] [place] [address] Abel Pretty MD Central Order Completion Outreach (mammogram) 06/09/2024 9:43 AM EDT - 06/09/2024 11:59 PM EDT Hospital Encounter [facility] [address] [place] [address] Abel Pretty MD Localized swelling of both lower legs; Shortness of breath Discharge Disposition: Home or Self Care 06/08/2024 Refill [facility] [address] [place] [address] Jomar Kim MD Medication Refill 06/08/2024 Refill [facility] [address] [place] [address] Abel Pretty MD Medication Refill 06/08/2024 Refill [facility] [address] [place] [address] Cristiane Shirley MD Medication Refill 06/08/2024 Telephone [facility] [address] [place] [address] Abel Pretty MD Central Care Gap Outreach (Diabetic eye exam ) 04/27/2024 2:20 PM EDT Office Visit [facility] [address] [place] [address] Jomar Kim MD Screening for colon cancer (Primary Dx) from Last 3 Months Allergies Active Allergy Reactions Criticality Noted Date [...] 1 box 6 1 Active Nebulizer Accessories Misc KitIndications:A cute bronchitis, unspecified organism Nebulizer accessories [...] eyes. 5 mL 2 Active Blood-Glucose Meter [facility] KitIndications:T ype 2 diabetes mellitus without complication, without long-term current use of insulin ([facility]) Per formulary. Dx. E11.9 1 Kit 2 Active Blood Sugar Diagnostic [facility] StripIndications :Type 2 diabetes mellitus without complication, without long-term current use of insulin ([facility]) 1 Strip by [facility].(Non-Drug; Combo Route) route 2 times daily. Per formulary. Dx: E11.9 100 Each 11 2 Active Lancets [facility] MiscIndications: Type 2 diabetes mellitus without complication, without long-term current use of insulin ([facility]) 1 Each by [facility].(Non-Drug; Combo Route) route 2 times daily. Per formulary. Dx: E11.9 100 Each 11 2 Active fluticasone propionate (FLONASE) 50 mcg/actuation [place], SuspensionIndica tions:ETD (Eustachian tube dysfunction), right Use 1 spray(s) in each nostril once daily 16 g 3 Active ONETOUCH DELICA PLUS LANCET 33 gauge [facility] USE TO CHECK GLUCOSE TWICE DAILY 3 [...] 5 3 Active Blood-Glucose Meter,Continuous (DEXCOM G7 DOG FOOD SHREDDER OPERATOR) [facility] MiscIndications: Type 2 diabetes mellitus without complication, without long-term current use of insulin (HCC),Severe diabetic hypoglycemia (HCC) 1 Each by [facility].(Non-Drug; Combo Route) route as needed. 1 Each 11 3 Active Blood-Glucose Sensor (DEXCOM G7 SENSOR) [facility] DeviceIndication s:Type 2 diabetes mellitus without complication, without long-term current use of insulin (HCC),Severe diabetic hypoglycemia (HCC) 1 Each by [facility].(Non-Drug; Combo Route) route as needed. 1 Each [...] complication, without long-term current use of insulin ([facility]) Take 1 tablet by mouth once daily [...] migh t be different from the original. [facility] audit completed by Brynn Wu RN on 09/23/2023. Problem Noted Date Diagnosed Date Chronic bronchitis 07/16/2023 Epigastric pain 09/10/2020 Periumbilical abdominal pain 07/18/2020 Overview (07/18/2020): Added automatically from request for surgery [id number] Atherosclerosis of aorta 03/18/2019 PMR (polymyalgia rheumatica) 03/18/2019 Venous stasis dermatitis of left lower extremity 11/19/2018 Obesity, Class III, BMI 40-49.9 (morbid obesity) 03/24/2017 Type 2 diabetes mellitus without complication History of endometrial cancer 11/15/2015 Overview (11/15/2015): Had endometrial cancer. She had complete hysterectomy 08/2015. She sees dr Bre Selby at [facility] [place] (obstructive sleep apnea) 12/28/2014 Ventral hernia [...] screening colonoscopy 02/17/2013 04/17/2020 Esophageal reflux 04/17/2020 Immunizations Name Administration Dates Next Due Influenza Virus Vaccine Quad rivalant, Flublok 06/10/2019 Moderna SARS-CoV-2 Vaccine 1 2+ Yrs (Light blue border) 01/14/2021,12/17/2020 Pneumococcal Conjugate Vaccine 20 Valent 023 Pneumococcal Polysaccharide 23 Valent 12/01/2021 ,11/15/2015 Quadrivalent Influenza High Dose 05/31/2023,10/09/2021,07/14/2021 Tdap 05/31/2023,01/06/2013 Zoster Recombinant 12/01/2021 Social History Tobacco Use Types Packs/Day Years [...] Date Recorded PHQ-2 Total Score 0 01/03/2024 [facility] - [...] file Not on file Not on file Last Filed Vital Signs Vital Sign Reading [...] Mass Index 50.83 04/27/2024 2:44 PM EDT Functional Status * Is the person deaf or does he/she have serious difficulty hearing? Answer Date of Assessment Author No 01/03/2024 10:47 AM EDT Rodolfo Skelton MA * Is the person blind or does he/she have serious difficulty seeing even when wearing glasses? Answer Date of Assessment Author No 01/03/2024 10:47 AM EDT Rodolfo Skelton MA * Does this person have serious [...] 01/03/2024 10:47 AM EDT Rodolfo Skelton MA Mental Status * Because of a physical, mental or emotional condition, does this person have serious difficulty concentrating, remembering or making decisions? Answer Entry Date Author No 01/03/2024 10:47 AM EDT Rodolfo Skelton MA Plan of Treatment Upcoming Encounters Date Type Department Care Team (Late st Contact Info) Description 07/29/2024 9:00 AM EST Appointment [facility] [address] [place] [address] Jomar Kim MD [address] [place] [address] Goals Goal Patient Goal Type Associated Problems Recent Progress Patient-Stated? Author Blood Pressure < 140/90 Blood Pressure 110/72(04/09 2:44 PM EDT) No Rachel Rogers RMA BMI (Calculated) < 30 General 50.9(2023 2:44 PM EDT) No Rachel Rogers RMA Eat better, exercise, reach an ideal body weight General No Ni Clinton, gas line installer Healing General On track(12/03 9:18 AM EDT) [...] neuropathy weekly. ?? Refer to PCP and/or Acetone Recovery Worker, Vascular Specialist as indicated. ?? Monitor patient compliance with wound care, diabetes management and proper offloading. Patients abdominal discomfort will improve or resolve by next follow up call from RN CC. General Not on track(03/09 11:41 AM EDT) No Joselyn Chance, MATT Stay Tobacco Free Lifestyle On track(02/07 10:23 AM EDT) No Wendy Espinoza LPN HEMOGLOBIN A1C < 7.0 Result Component 5.6( 024 3:04 PM EST) No Rachel Rogers RMA Medical Devices Implanted Type Area Openstack Developer Device Identifier Shelf Expiration Date Model / Serial / Lot Mesh Srg Ventralight St Echo 2 [id number] Ellipse 6x8in - [id number] Implanted:Qty: 1 on 04/18/2020 by Regan Butts MD at [facility] N/A: Abdomen CR BARD:MEDICAL [id number] 11/05/2020 [id number] / / [id number] Procedures Procedure Name Priority Date/Time Associated Diagnosis [...] COLOR FLOW MAPPING (06/09/2024 10:55 AM EDT) [facility] Ejection Fraction 55-60% PYRAMIS MITRAL REGURGITATION trace [...] pressure due to lackof tricuspid regurgitation jet. Abel Pretty MD IMG ECHO ORDERABLES [facility] al Result * HEMOGLOBIN A1C (11/09/2023 3:04 PM EST) [facility] Hgb A1C 5.6 4.2 - 5.6 % 11/09/2023 8:22 PM EST PREFERRED [employer] Est. Avg Glucose 114 mg/dL 11/09/2023 8:22 PM EST PREFERRED [employer] Blood VENOUS BLOOD / Unknown Venipuncture / Unknown 11/09/2023 3:04 PM EST 11/09/2023 3:04 PM EST Narrative PREFERRED [facility] - 11/09/2023 8:22 PM EST REFERENCE RANGE: Normal: 4.0-5.6% Pre-diabetes: 5.7-6.4% Provisional diagnosis of diabetes: >6.4% Hgb F>10% and anything which shortens red cell survival, such as hemolytic anemia, or unstable hemoglobin variants such as HbSS, HbSC, or HbCC, will lower the HbA1c value associated with a given level of glycemic control. ? us Cristiane Shirley MD CHEMISTRY ORDERABLES Final Res ult [employer] [address] [facility] , [place] [id number] * (ABNORMAL) LIPID PANEL REFLEX (05/31/2023 9:56 AM EDT) Cholesterol 176 <200 mg/dL 05/31/2023 2:48 PM EDT [employer] Comment: < 200 ?Desirable 200 - 239 ? Borderline High >= 240 ?High Triglyceride 130 <150 mg/dL 05/31/2023 2:48 PM EDT [employer] Comment: < 150 ? Normal 150 - 199 ?Borderline High 200 - 499 ?High ??>= 500 ? Very High HDL 46 >=40 mg/dL 05/31/2023 2:48 PM EDT [employer] Comment: ??> 60 ?Optimal 40 - 60 ?Acceptable ?? < 40 ?Low LDL Calculated 107(H) <100 mg/dL 05/31/2023 2:48 PM EDT [employer] Non-HDL-C Calculated 130(H) <=129 mg/dL 05/31/2023 2:48 PM EDT [employer] Comment: <130 ?Desirable 130-159 Above Desirable 160-189 Borderline High 190-219 High >= 220 ??Very High Fasting Specimen? Unknown None 023 2:48 PM EDT [facility] Blood VENOUS BLOOD / Unknown Venipuncture / Unknown 05/31/2023 9:56 AM EDT 05/31/2023 9:56 AM EDT Cristiane Shirley MD CHEMISTRY ORDERABLES Final Res ult Performing Organization Address [facility] [[email or web address]] Co de Phone Number [facility] [place], [employer] [address] [facility], [place] [address] [facility] [address] [place] [id number] * POCT URINE MICROALBUMIN (01/10/2023 11:22 AM EDT) Microalb, Ur 10 mg/L 01/10/2023 11:25 AM EDT [facility] Creatinine Urine 100 mg/dL 01/10/2023 11:25 AM EDT [facility] [place] [place] Microalb/Sewing Machine Operator Semiautomatic. Ratio <30 <30 mg/g 01/10/2023 11:25 AM EDT [facility] [place] [place] Urine URINE SPECIMEN COLLECTION / Unknown 01/10/2023 11:22 AM EDT 01/10/2023 11:25 AM EDT Cristiane Shirley MD POINT OF CARE TEST ORDERABLES Final Result Performing Organization Address [facility] de Phone Number [address] [address] * DIABETES EYE EXAM (06/17/2018) Left Diabetic Retinopathy Not Present Present/Not Present SEP OFFICE Right Diabetic Retinopathy Not Present Present/Not Present SEP OFFICE 06/17/2018 [facility] Provider HEALTH MAINTENANCE Final Res ult Performing Organization Address City/[facility]/ZIP Co de Phone Number SEP OFFICE * DX BONE DENSITY AXIAL SKELETON (01/30/2017 10:35 AM EDT) Anatomical Region Laterality Modality Dexa Scan 01/30/2017 Narrative 02/01/2017 3:52 PM EDT Indication: The patient is presently being monitored while on treatment and requires a bone density assessment. Study was performed on [place] [address]. Bone Density: Region ?BMD ? T-score ? [...] TH value. Reported by: Amy Guerin PA-C, CCD on 01/30/2017 3:24:00 PM. Yenny Schwab MD IMG DEXA ORDERABLES Final Result * HEPATITIS C ANTIBODY IGM + IGG (12/11/2016 11:46 AM EDT) Hep C Ab Negative Negative [facility] Blood specimen (specimen) 12/11/2016 11:46 AM EDT 12/11/2016 3:25 PM EDT Yenny Schwab MD IMMUNOLOGY ORDERABLES Fin al Result Performing Organization Address [facility] [[email or web address]] Co de Phone Number [facility] [address] [place] [address] * GMED EGD-COLONOSCOPY (02/17/2013 7:15 AM EDT) 02/17/2013 7:15 AM EDT Impressions [facility] - 02/17/2013 10:33 AM EDT Plan: Await pathology results Screening Colonoscopy in 10 years. Follow-up office visit in 2 months Continue current medication for acid suppression/ dose 30 minutes before a meal This section is an excerpt of the full report, which can be found by clicking the hyperlink. Garett Holt MD GI PROCEDURE ORDERABLES Fin al Result Performing Organization Address [facility] [[email or web address]] Co de Phone Number [facility] [address] [place] [address] * MM MAMMO DIGITAL SCREENING W CAD BILAT (07/08/2012 4:38 PM EDT) Anatomical Region Laterality Modality Breast Bilateral Mammography 07/10/2012 7:44 AM EDT Impressions 07/10/2012 8:22 AM EDT : No radiographic evidence of malignancy ([id number]) ~ RECOMMENDATION: Routine screening mammogram in 1 [...] ~ IMPRESSION: No radiographic evidence of malignancy ([id number]) ~ RECOMMENDATION: Routine screening mammogram in 1 [...] a Radiologist and CAD. us Viral Harjit Orellana DO IMG MAMMOGRAPHY ORDERABLES Fin al Result from Last 3 Months or Most Recently Relevant to Health Maintenance Insurance [facility] [place] [address] [employer] HMO MEDICARE [place] Advance Directives For more information, please contact: [phone] * Full Code (Latest Code Status on File) Date Activated Date Inactivated Comments 04/16/2020 11:27 PM 04/29/2020 12:51 AM * Full Code Date Activated Date Inactivated Comments 03/13/2017 5:23 PM 03/14/2017 6:01 PM Care Teams Double Backer Relationship Specialty Start Date End Date Abel Pretty MD [address] [place] [address] PCP - General Family Medicine 12/30/23 Garett Holt MD Internal Medicine-Gastroenterology 12/22/12 Ruiz Stokes MD [address] [place], [place] [id number] Internal Medicine-Cardiovascular Disease 07/25/14 Yenny Schwab MD [address] [place] [address] Internal Medicine-Rheumatology 12/11/16
--- OUTSIDE RECORDS SUMMARY | 2024-07-22 15:55 | XMS_ITS | Encounter Summary ---
Author Organization [place] [address] Care Team Providers Care Network Operations Specialist Name Role Phone Garett Holt MD Unavailable [phone] Ruiz Stokes MD Unavailable [phone] Yenny Schwab MD Unavailable [phone] Abel Pretty MD Primary Care Provider Reason for Referral * Echo (Routine) - Closed Specialty Diagnoses / Procedures Referred By Contac t Referred To Contact Radiology Diagnoses Localized swelling of both lower legs Shortness of breath Procedures EC ECHOCARDIOGRAM COMPLETE W DOPPLER AND COLOR FLOW MAPPING Abel Pretty MD [address] [place] [address] Phone: tel: fax: Referral ID Status Reason Start Date Expiration Date Visits Re quested Visits Authorized [id number] Closed 04/01/2024 04/01/2026 1 1 Reason for Visit * Echo (Routine) - Closed Specialty Diagnoses / Procedures Referred By Contac t Referred To Contact Radiology Diagnoses Localized swelling of both lower legs Shortness of breath Procedures EC ECHOCARDIOGRAM COMPLETE W DOPPLER AND COLOR FLOW MAPPING Abel Pretty MD [address] [place] [address] Phone: tel: fax: Referral ID Status Reason Start Date Expiration Date Visits Re quested Visits Authorized [id number] Closed 04/01/2024 04/01/2026 1 1 Encounter Details Date Type Department Care Team (Late st Contact Info) Description 06/09/2024 9:43 AM EDT - 06/09/2024 11:59 PM EDT Hospital Encounter [facility] [address] [place], [place] [id number] Abel Pretty MD [address] [place] [address] Localized swelling of both lower legs; Shortness of breath Discharge Disposition: Home or Self Care Social History Tobacco Use Types Packs/Day Years Used Date Smoking Tobacco: Former Cigarettes 1.5 13 0 09/08/1971 - 09/07/1984 Passive Smoke Exposure: Current Smokeless Tobacco: Never Alcohol Use Standard Drinks/Week Comments No 0 (1 standard drink = 0.6 oz pur e alcohol) Overall Financial Resource Strain (CARDI) Answe r Date Recorded How hard is it for you to pa y for the very basics like food, housing, medical care, and heating? Not very hard 02/07/2021 PHQ-2 Answer Date Recorded PHQ-2 Total Score 0 01/03/2024 [facility] [place] of Occupat ional Health - Occupational Stress [...] 01/03/2024 10:47 AM Rodolfo Dill MA * Because of a physical, mental [...] Rodolfo Dill MA documented in this encounter Medications at Time of Discharge albuterol (PROVENTIL HFA;VENTOLIN HFA) 90 mcg/actuation Inhl HFA Aerosol InhalerIndication s:Chronic bronchitis, unspecified chronic bronchitis type (HCC) Inhale 2 Puffs into the lungs every 4 hours as needed for Wheezing. 1 Each 2 07/19/2023 albuterol (PROVENTIL) 2.5 mg /3 mL (0.083 %) Inhl Solution for NebulizationIndic ations:Acute bronchitis, unspecified organism Take 3 mL by nebulization every 4 hours as needed for Wheezing. 1 box 6 02/24/2021 aspirin 81 mg Oral Tablet, Delayed Release (E.C.) Take 1 Tablet by mouth daily. 90 Tablet 2 02/10/2023 atorvastatin (LIPITOR) 20 mg Oral Tablet Take 1 tablet by mouth once daily 90 Tablet 3 02/23/2024 Blood Sugar Diagnostic [facility] StripIndications: Type 2 diabetes mellitus without complication, without long-term current use of insulin ([facility]) 1 Strip by [facility].(Non-Drug; Combo Route) route 2 times daily. Per formulary. Dx: E11.9 100 Each 11 08/05/2022 Blood-Glucose Meter [facility] KitIndications:Ty pe 2 diabetes mellitus without complication, without long-term current use of insulin ([facility]) Per formulary. Dx. E11.9 1 Kit 08/05/2022 Blood-Glucose Meter,Continuous (DEXCOM G7 CONTROL PANEL BUILDER) [facility] MiscIndications:T ype 2 diabetes mellitus without complication, without long-term current use of insulin (HCC),Severe diabetic hypoglycemia (HCC) 1 Each by [facility].(Non-Drug; Combo Route) route as needed. 1 Each 11 06/27/2023 Blood-Glucose Sensor (DEXCOM G7 SENSOR) [facility] DeviceIndications :Type 2 diabetes mellitus without complication, without long-term current use of insulin (HCC),Severe diabetic hypoglycemia (HCC) 1 Each by [facility].(Non-Drug; Combo Route) route as needed. 1 Each 06/27/2023 CALCIUM ORAL Take 1 Tab by mouth daily. cholecalciferol, vitamin D3, (VITAMIN D3) 25 mcg (1,000 unit) Oral Tablet Take 1 Tab by mouth daily. 30 Tab 11 09/14/2019 dapagliflozin propanediol (FARXIGA) 10 mg Oral TabletIndications :Type 2 diabetes mellitus without complication, without long-term current use of insulin (HCC) Take 1 Tablet by mouth daily. 30 Tablet 2 11/08/2023 docusate sodium (COLACE) 100 mg Oral Capsule Take 1 Capsule by mouth 2 times daily. 60 Capsule 2 03/31/2023 empagliflozin (JARDIANCE) 10 mg Oral Tablet Take 1 Tablet by mouth daily. 21 Tablet 10/28/2023 fluticasone propionate (FLONASE) 50 mcg/actuation Nasl [place], SuspensionIndicat ions:ETD (Eustachian tube dysfunction), right Use 1 spray(s) in each nostril once daily 16 g 10/17/2022 fUROsemide (LASIX) 40 mg Oral TabletIndications :Lower extremity edema,Venous stasis dermatitis of left lower extremity One tab twice a day as needed. 60 Tablet 2 06/08/2024 glipiZIDE (GLUCOTROL) 5 mg Oral TabletIndications :Type 2 diabetes mellitus without complication, without long-term current use of insulin (HCC) Take 1 tablet by mouth once daily 90 Tablet 1 03/09/2024 hydroCHLOROthiazi de 25 mg Oral Tablet Take 50 mg by mouth daily. 12/15/2023 hydroCHLOROthiazi de 50 mg Oral TabletIndications :Localized swelling of both lower legs,Lower extremity edema Take 1 Tablet by mouth 2 times daily. 60 Tablet 2 04/01/2024 Lancets [facility] MiscIndications:T ype 2 diabetes mellitus without complication, without long-term current use of insulin (HCC) 1 Each by [facility].(Non-Drug; Combo Route) route 2 times daily. Per formulary. Dx: E11.9 100 Each 11 08/05/2022 lisinopriL (PRINIVIL;ZESTRIL ) 10 mg Oral Tablet Take 1 tablet by mouth once daily 90 Tablet 1 02/16/2024 loratadine (CLARITIN) 10 mg Oral TabletIndications :Seasonal allergic rhinitis due to pollen Take 1 tablet by mouth once daily 63 Tablet 12/24/2021 meloxicam (MOBIC) 15 mg Oral TabletIndications :Bilateral hip pain Take 1 tablet by mouth once daily 30 Tablet 11/17/2023 Nebulizer Accessories [facility] KitIndications:Ac st. croix bronchitis, unspecified organism Nebulizer accessories 1 Kit 02/24/2021 olopatadine (PATANOL) 0.1 % Opht DropsIndications: Allergic conjunctivitis, bilateral Place 1 Drop into both eyes 2 times daily. Administer drops in both eyes. 5 mL 07/27/2022 ondansetron (ZOFRAN-ODT) 4 mg Oral Tablet, Rapid DissolveIndicatio ns:Nausea and vomiting, unspecified vomiting type Take 1 Tablet by mouth every 8 hours as needed for Nausea. 15 Tablet 07/19/2023 ONETOUCH DELICA PLUS LANCET 33 gauge Misc Misc USE TO CHECK GLUCOSE TWICE DAILY 11/08/2022 oxybutynin (DITROPAN-XL) 10 mg Oral Tablet Extended Rel 24 hr Take 1 Tablet by mouth daily. 90 Tablet 2 12/06/2021 RABEprazole (ACIPHEX) 20 mg Oral Tablet, Delayed Release (E.C.) Take 1 Tablet by mouth 2 times daily (before meals). 60 Tablet 3 06/08/2024 spironolactone (ALDACTONE) 25 mg Oral Tablet Take 1 tablet by mouth once daily 90 Tablet 2 11/24/2023 sucralfate (CARAFATE) 100 mg/mL Oral Suspension Take 10 mL by mouth 4 times daily. 414 mL 3 04/27/2024 tiZANidine (ZANAFLEX) 4 mg Oral TabletIndications :Muscle spasm Take 1 Tablet by mouth 3 times daily as needed. 30 Tablet 01/10/2023 trospium (SANCTURA) 20 mg Oral TabletIndications :Urinary frequency,OAB (overactive bladder) Take 1 Tablet by mouth 2 times daily. 60 Tablet 5 06/09/2023 documented as of this encounter Discharge Disposition Disposition Code Departure Means Destination Home or Self Care documented in this encounter Plan of Treatment Upcoming Encounters Date Type Department Care Team (Late st Contact Info) Description 07/29/2024 9:00 AM EST Appointment [facility] [address] [place] [address] Jomar Kim MD [address] [place] [address] documented as of this encounter Goals Goal Patient Goal Type Associated Problems Recent Progress Patient-Stated? Author Blood Pressure < 140/90 Blood Pressure 110/72(04/09 2:44 PM EDT) No Rachel Rogers RMA BMI (Calculated) < 30 General 50.9(2023 2:44 PM EDT) No Rachel Rogers RMA Eat better, exercise, reach an ideal body weight General No Ni [place] market developer Healing General On track(12/03 9:18 AM EDT) [...] neuropathy weekly. ?? Refer to PCP and/or Music Store Manager, Vascular Specialist as indicated. ?? Monitor patient [...] Rogers RMA documented as of this encounter Procedures Procedure Name Priority Date/Time Associated Diagnosis Comments EC ECHOCARDIOGRAM COMPLETE W DOPPLER AND COLOR FLOW MAPPING Routine 06/09/2024 10:55 AM EDT Localized swelling of both lower legs Shortness of breath documented in this encounter Results * EC ECHOCARDIOGRAM COMPLETE W DOPPLER AND [...] MD IMG ECHO ORDERABLES Fin al Result documented in this encounter Visit Diagnoses Diagnosis Localized swelling of both lower legs Shortness of breath documented in this encounter Additional Health Concerns Assessment Noted Time A fall risk assessment has been complete d for the patient 11/08/2023 9:11 AM EST documented as of this encounter Care Teams Network Operations Specialist Relationship Specialty Start Date End Date Abel Pretty MD [address] [place] [address] PCP - General Family Medicine 12/30/23 Garett Holt MD Internal Medicine-Gastroenterology 12/22/12 Ruiz Stokes MD [address] [place] [address] Internal Medicine-Cardiovascular Disease 07/25/14 Yenny Schwab MD [address] [facility] Building [address] [place] [address] Internal Medicine-Rheumatology 12/11/16 documented as of this encounter
--- OUTSIDE RECORDS SUMMARY | 2024-07-22 15:55 | XMS_ITS | Encounter Summary ---
[facility] Address [address] [place] [address] Care Team Providers Care Correctional Supervisor Lieutenant Name Role Phone Provider, No Known Primary Care Provider [phone] Encounter Details Date Type Department Care Team (Late st Contact Info) Description 01/31/2016 10:43 AM EDT - 02/06/2016 11:59 PM EDT Hospital Encounter [facility] [address] [place] [address] Bre Reina MD Discharge Disposition: Home or Self Care [...] on filedocumented in this encounter Care Teams Correctional Supervisor Lieutenant Relationship Specialty Start Date End Date Provider, No Known [place], [place] [id number] PCP - General 01/25/16 documented as of this encounter
--- OUTSIDE RECORDS SUMMARY | 2024-07-22 15:55 | XMS_ITS | Continuity of Care Document ---
Author Organization [facility] Address [address] [address] Assessment No assessment recorded. Plan of Treatment Reminders Order Date Submit Date Provider Last Modified By Organization Details Last Modified Time Details Appointments None recorded. Lab CMP, serum or plasma 2023 [facility] (Laboratory), [address] [place], [address], 17:28:53 hemoglobin A1c + average glucose, QN, blood 2023 [facility] (Laboratory), [address] [place], [address], 07:59:01 TSH, serum or plasma 2023 [facility] (Laboratory), [address] [place], [address], 17:28:49 CBC w/ auto diff 2023 [facility] (Laboratory), [address] [place], [address], 16:51:25 iron + TIBC + ferritin, serum 2023 [facility] (Laboratory), [address] [place], [address], 15:01:42 vitamin B12 + folate, serum or blood 2023 [facility] (Laboratory), [address] [place], [address], 4 15:01:42 vitamin D, 25-hydroxy , total, serum 2023 [facility] (Laboratory), [address] [place], [address], 4 15:01:42 urinalysis , dipstick 2023 [facility], [address] [place], [address], 4 15:08:50 microalbum in/creatin ine, mass ratio, urine 2023 [facility], [address] [place], [address], 15:08:50 culture, urine 2023 [facility] (Laboratory), [address] [place], [address], 4 07:28:20 Referral home health referral 2023 [email or web address], [address], [place], [address], 4 08:48:43 Procedures None recorded. Surgeries None recorded. Imaging None recorded. Medication Orders famotidine 20 mg tablet 2023 [facility], [address], [address], 15:05:52 Patient TargetsNo targets recorded. Patient InstructionsNo instructions recorded. Reason for Referral Home Health Referral for Imp aired mobility Referring Physician: Seferino Lawrence, Family Medicine, Encounter Date: 06/29/2024 Results Created Date Observation Date Name Description Value Unit Range Abnormal Flag Note LastModifiedBy Organization Detail LastModifiedTime 06/29/2006/29/2024 urina lysis , dipst ick Leukocytes (reference range) negati ve Not Available [address] [place], [address], 06/29/2024 14:46:24 06/29/20 24 06/29/2024 urina lysis , dipst ick Nitrite (reference range:) negati ve Not Available [address] [place], [address], 06/29/2024 14:46:24 06/29/2006/29/2024 urina lysis , dipst ick Urobilinogen (reference range) 0.2 Not Available [address] [place], [address], 06/29/2024 14:46:24 06/29/2006/29/2024 urina lysis , dipst ick Protein (reference range) negati ve Not Available [address] [place], [address], 06/29/2024 14:46:24 06/29/20 24 06/29/2024 urina lysis , dipst ick pH (reference range 5-8.5) 5.5 Not Available Ranjan [address] [place], [address], 06/29/2024 14:46:24 06/29/20 24 06/29/2024 urina lysis , dipst ick Blood (reference range:) modera te Not Available [address] [place], [address], 06/29/2024 14:46:24 06/29/20 24 06/29/2024 urina lysis , dipst ick Specific [place] (reference range) 1.020 Not Available [address] [place], [address], 06/29/2024 14:46:24 06/29/20 24 06/29/2024 urina lysis , dipst ick Ketone (reference range) negati ve Not Available [address] [place], [address], 06/29/2024 14:46:24 06/29/20 24 06/29/2024 urina lysis , dipst ick Bilirubin (reference range) negati ve Not Available [address] [place], [address], 06/29/2024 14:46:24 06/29/20 24 06/29/2024 urina lysis , dipst ick Glucose (reference range) negati ve Not Available [address] [place], [address], 06/29/2024 14:46:24 06/29/2006/29/2024 urina lysis , dipst ick Color (reference range: yellow-brown ) Yellow Not Available [address] [place], [address], 06/29/2024 14:46:24 06/29/20 24 06/29/2024 micro album in/cr eatin ine, mass ratio , urine Microalbumin 30 Not Available [place] [address] [place], [address], 06/29/2024 14:46:32 06/29/2006/29/2024 micro album in/cr eatin ine, mass ratio , urine Creatinine 200 Not Available [address] [place], [address], 06/29/2024 14:46:32 06/29/20 24 06/29/2024 micro album in/cr eatin ine, mass ratio , urine Ratio <30 normal Not Available [facility] [address] [place], [address], 06/29/2024 14:46:32 Result Notes None recorded. Problems Name Problem SNOMED Code Status Onset Date Resolution Date Notes Provider Name and Address Organization Details Recorded Time Type 2 diabetes mellitus 85531055 Active 2023 Karen Pardini null, [place] [facility] [place] [facility] [place] 4 14:38:38 Essential hypertension 47339365 Active 2023 Karen Pardini null, [place] [facility] [place] 4 14:38:45 Edema of lower extremity 544938009 Active 2023 Karen Pardini null, [place] [facility] [place] 4 14:38:55 Hyperlipidemia 97493023 Active 2023 Karen Pardini null, [place] [facility] [place] 4 14:39:02 Iron deficiency anemia 87446609 Active 2023 Karen Pardini null, [place] [facility] & [place] 4 14:39:11 Disorder of vitamin B12 820286769 Active 2023 Karen Pardini null, [place] [facility] [place] 14:39:26 Problem Notes None recorded. Procedures Surgical History Date Name Laterality Status Provider Name and Address Organization Details Recorded Time Gallbladder Surgery completed Janeth e Pardini [place] [facility] [place] [facility] [place] 14:41:10 transesophageal echocardiography completed Karen Pardini [place] [facility] [place] [facility] [place] 4 14:41:18 esophagogastroduodenoscopy completed Karen Nathanieldini [place] [facility] [place] [facility] [place] 14:41:25 Imaging Results None recorded. Procedure Notes None recorded. Medical Equipment None Reported. Allergies Allergen ID Allergen Name Allergen Category Reaction Reaction Severity Criticality Documentation Date Start Date Code Code System Note Provider Name and Address Organization Details Recorded Time 316047 Ceclor medicatio n Not available Not available Not available 06/29/202409078 5 RxNorm FRANCOIS Moffett [facility] & [place] 4 14:36:00 237361 ampicilli n medicatio n Not available Not available Not available 06/29/2024 733 RxNorm FRANCOIS Moffett [facility] & [place] 4 14:36:05 Medications Name Sig Start Date Stop [...] and Address Organization Details Last Updated DateTime 152.4 cm 98.4 [degF] 95 % 95 % 91 /min 18 /min 121 mm[Hg] 73 mm[Hg] Karen Dobbs [facility] & [place] 14:35:03 Social History Question Answer Notes LastModified by Organizat ion Details LastModified Time Tobacco Smoking Status Never Smoker Karen Dobbs [facility], [facility] & [place] 06/29/2024 14:40:16 Do You Have An Advance [...] Do You Have A Medical Power Of Junior Paralegal? No Information not available 06/29/2024 Do You [...] Anxious, Or Unable To Sleep At Night)? [id number] Information not available 06/29/2024 Do You Use [...] Influenza, recombinant, quadrivalent, PF 06/10/2019 completed Karen Pardini null, [place] [facility] & [place] 06/29/2024 14:35:50 zoster recombinant 12/01/2021 completed Karen Pa rdini null[place] [facility] & [place] 06/29/2024 14:35:50 Influenza, high-dose, quadrivalent, PF 05/31/2023 completed Karen Pard[place] [facility] [place] [facility] [place] 06/29/2024 14:35:50 Influenza, high-dose, quadrivalent, PF 06/08/2022 completed Karen Pard[place] [facility] [place] [facility] [place] 06/29/2024 14:35:50 Influenza, high-dose, quadrivalent, PF 07/14/2021 completed Karen [place] [facility] [place] [facility] [place] 06/29/2024 14:35:50 COVID-19, mRNA, LNP-S, PF, 100 mcg/0.5mL dose or 50 mcg/0.25mL dose 12/17/2020 completed Karen [place]ard[place] [facility] [place] [facility] [place] 06/29/2024 14:35:50 COVID-19, mRNA, LNP-S, PF, 100 mcg/0.5mL dose or 50 mcg/0.25mL dose 01/14/2021 completed Karen Pard[place] [facility] [place] [facility] [place] 06/29/2024 14:35:50 Pneumococcal conjugate PCV20, polysaccharide VSX305 conjugate, adjuvant, PF 05/31/2023 completed Karen [place]ard[place] [facility] [place] [facility] [place] 06/29/2024 14:35:50 pneumococcal polysaccharide PPV23 11/15/2015 completed Karen [place] [facility] [place] [facility] [place] 06/29/2024 14:35:50 pneumococcal polysaccharide PPV23 12/01/2021 completed Karen [place]ard[place] [facility] [place] [facility] [place] 06/29/2024 14:35:50 Tdap 05/31/2023 completed Karen [place]ard[place] [facility] [place] [facility] [place] 06/29/2024 14:35:50 Past Encounters Encounter ID Performer Location Encounter Start Date Encounter Closed Date Diagnosis/Indication Diagnosis SNOMED-CT Code Diagnosis ICD10 Code [id number] SEFERINO LAWRENCE NP [facility] [address] [address] 06/29/2024 14:07:12 06/29/2024 14:51:48 Essential hypertension 22724193 I10 Blood in urine 70302387 R31.9 Type 2 chari betes mellitus 02958660 E11.9 Anemia 449340454 D64.9 Edema 306857757 R60.9 Impaired mobility 487324 05 Z74.09 Vitamin D deficiency 347 49443 E55.9 Intolerant of cold 72697 000 R68.89 Gastroesop hageal reflux disease without esophagitis 174995713 K21.9 Health Concerns Section Related Observation LastModified by Organization Detai ls LastModified Time None Recorded Concern Status LastModified by Organization Details LastModified Time None Recorded Payers Encounter Date Sequence Insurance Name Policy Number Policy Red Covered Member ID Red Member ID Guarantor Name 06/29/2024 1 [employer] (MEDICARE REPLACEMENT HMO) Alyssa Jamil [id number] Alyssa Jamil Notes Date Note Type Note Provider Name and Address Organization Details Recorded Time 06/29/2024 text/html 69-year-old stuart salas who presents as a new patient previously followed by provider in [facility]. She lives at home with her and [...] knee. Complains of uncontrolled acid reflux. SEFERINO LAWRENCE, TRENT [address] [place] [address], [phone] - [facility] & [place] 07/02/2024 09:30:21 OBGyn Episode No OBEpisode recorded.
--- OUTSIDE RECORDS SUMMARY | 2024-07-22 15:55 | XMS_ITS | Encounter Summary ---
Author Organization [place] [address] Care Team Providers Care Power Distribution Engineer Name Role Phone Garett Holt MD Unavailable [phone] Ruiz Stokes MD Unavailable [phone] Yenny Schwab MD Unavailable [phone] Abel Pretty MD Primary Care Provider Reason for Visit * Reason Onset Date Comments Medication Refill 06/08/2024 Encounter Details Date Type Department Care Team (Late st Contact Info) Description 06/08/2024 Refill [facility] [address] [place] [address] Cristiane Shirley MD [address] [place], [place] [id number] Medication Refill Social History Tobacco Use Types [...] Date Recorded PHQ-2 Total Score 0 01/03/2024 [facility] of Occupat ional [facility] - Occupational Stress Questionnaire Answer Date Recorded [...] 01/03/2024 10:47 AM EDRodolfo Mcknight MA * Does this person have serious [...] Rodolfo Skelton MA documented in this encounter Plan of Treatment Upcoming Encounters Date Type Department Care Team (Late st Contact Info) Description 07/29/2024 9:00 AM EST Appointment [facility] [address] [place], [place] [id number] Jomar Kim MD [address] [place], [place] [id number] documented as of this encounter Goals Goal Patient Goal Type Associated Problems Recent Progress Patient-Stated? Author Blood Pressure < 140/90 Blood Pressure 110/72(04/09 2:44 PM EDT) No Rachel Rogers RMA BMI (Calculated) < 30 General 50.9(2023 2:44 PM EDT) No Rachel Rogers RMA Eat better, exercise, reach an ideal body weight General No Ni [place], nuclear control operator Healing General On track(12/03 9:18 AM EDT) No Bessie Morse, RN Note: Wound volume reduction goals ?? [...] neuropathy weekly. ?? Refer to PCP and/or Outside Sales Account Executive, Vascular Specialist as indicated. ?? Monitor patient [...] Diagnoses Not on filedocumented in this encounter Additional Health Concerns Assessment Noted Time A fall risk assessment has been complete d for the patient 11/08/2023 9:11 AM EST documented as of this encounter Care Teams Power Distribution Engineer Relationship Specialty Start Date End Date Abel Pretty MD [address] [place] [phone] PCP - General Family Medicine 12/30/23 Garett Holt MD Internal Medicine-Gastroenterology 12/22/12 Ruiz Stokes MD [address] [place] [address] Internal Medicine-Cardiovascular Disease 07/25/14 Yenny Schwab MD [address] [facility] [address] [place] [address] Internal Medicine-Rheumatology 12/11/16 documented as of this encounter
--- OUTSIDE RECORDS SUMMARY | 2024-07-22 15:55 | XMS_ITS | Encounter Summary ---
Author Organization [facility] Address [address] [place] [address] Care Team Providers Care Help Aid Name Role Phone Provider, No Known Primary Care Provider Unavail able Encounter Details Date Type Department Care Team (Late st Contact Info) Description 06/27/2015 3:07 PM EDT - 06/27/2015 11:59 PM EDT Hospital Encounter [address] ST[address] [facility] [address] [place] [address] Tank Fields MD 1700 [facility] [address] [place] [address] Discharge Disposition: Home or Self Care Social [...] on filedocumented in this encounter Care Teams Help Aid Relationship Specialty Start Date End Date Provider, No Known [facility] [place] [address] PCP - General 06/15/15 08/26/15 documented as of this encounter
--- OUTSIDE RECORDS SUMMARY | 2024-07-22 15:55 | XMS_ITS | Encounter Summary ---
Author Organization [facility] Address [address] [place] [address] Care Team Providers Care Platform Supervisor Name Role Phone Cristiane Shirley MD Primary Care Provider [phone] Encounter Details Date Type Department Care Team (Late st Contact Info) Description 08/09/2015 1:20 PM EST - 09/07/2015 11:59 PM EST Hospital Encounter [facility] [address] [place] [id number] Sheri Blakely MD 1700 [facility] [address] [place] [address] Bre Reina MD Discharge Disposition: Home or Self Care Social History Tobacco Use Types Packs/Day Years Used Date Smoking Tobacco: Never Assessed Comments Unknown Sex and Gender Information Value Date Recorded Sex Assigned at Not on file Legal Sex Female 10:33 AM EDT Gender Identity Not on file Sexual Orientation Not on file documented as of this encounter Progress Notes * Interface, See Report - 08/30/2015 12:00 AM EST Gynecologic Oncology [address] [address] PHONE: [phone] FAX: [phone] Patient: LEISA CAMPOS MR #: [id number] : 1955 Db Christiansen 08/30/15 Called to relay the pathology results from surgery. No residual cancer. Both the patient and her are elated. Electronically Signed By: Bre Reina MD Date: 08/30/2015 Time: 8:45 AM cc: * Interface, See Report - 08/14/2015 12:00 AM EST Gynecologic Oncology [address] [place] [address] PHONE: [phone] FAX: [phone] Patient: LEISA CAMPOS MR #: [id number] : 1955 RE: Records request 08/14/15 Called and spoke with PCP and Cardiology offices to request records: MD Geovani Cunningahm [phone], PCP Ruiz Stokes MD [phone], Seafood Harvester Still working on arranging a date for surgery. Electronically Signed By: Bre Reina MD Date: 08/14/2015 Time: 1:29 PM cc: * Interface, See Report - 08/11/2015 12:00 AM EST Gynecologic Oncology [address] [place] [address] PHONE: [phone] FAX: [phone] Patient: LEISA CAMPOS MR #: [id number] : 1955 Telephone Call 08/11/15 Spoke with patient to follow up on the possible management options . In the interim my office checked to see if an IUD would be covered by her insurance and it is not. Her out of pocket cost would be$850. Additionally in reflecting on her case more, I feel definitive management with a vaginal hysterectomy is the best option. I called and spoke with Ms. Campos and she relayed she had also come to the conclusion that she would like to have surgery. Despite having had an extensive conversationin the office, and drawing pictures, I am n ot confident she understands sufficiently what a vaginal hysterectomy is. I have asked that she return to the office for an additional pre-op visit so that I can improve her understandingof the procedure, risks, anticipated post-op course. The of her close friend Samaria is having prostate surgery on 08/14, and it is the patient's preference that we coordinate her office visit and eventual surgery around this event. I tentatively have August 22 in mind for her surgery. Electronically Signed By: Bre Reina MD Date: 08/11/2015 Time: 12:48 PM cc: Tank Fields MD documented in this encounter Plan of Treatment Not on file documented as of this encounter Visit Diagnoses Not on filedocumented in this encounter Care Teams Platform Supervisor Relationship Specialty Start Date End Date Cristiane Shirley MD [address] [place] [address] PCP - General 08/27/15 09/07/15 documented as of this encounter
--- OUTSIDE RECORDS SUMMARY | 2024-07-22 15:55 | XMS_ITS | Encounter Summary ---
Author Organization [place] [address] Care Team Providers Care Therapist Physical Name Role Phone Garett Holt MD Unavailable [phone] Ruiz Stokes MD Unavailable [phone] Yenny Schwab MD Unavailable [phone] Abel Pretty MD Primary Care Provider Reason for Visit * Reason Onset Date Comments Medication Refill 06/08/2024 Encounter Details Date Type Department Care Team (Late st Contact Info) Description 06/08/2024 Refill [facility] [address] [place] [address] Jomar Kim MD [address] [place], [place] [id number] Medication Refill Social History Tobacco Use Types [...] Date Recorded PHQ-2 Total Score 0 01/03/2024 [facility] - Occupational Stress [...] Rodolfo Dill MA documented in this encounter Ordered Prescriptions Prescription Sig Dispense Quantity Refills Last Filled Start Date End Date RABEprazole (ACIPHEX) 20 mg Oral Tablet, Delayed Release (E.C.) Take 1 Tablet by mouth 2 times daily (before meals). 60 Tablet 3 06/08/2024 documented in this encounter Plan of Treatment Upcoming Encounters Date Type Department Care Team (Late st Contact Info) Description 07/29/2024 9:00 AM EST Appointment [facility] [address] [place] [address] Jomar Kim MD [address] [place] [address] documented as of this encounter Goals Goal Patient Goal Type Associated Problems Recent Progress Patient-Stated? Author Blood Pressure < 140/90 Blood Pressure 110/72(04/09 2:44 PM EDT) No Rachel Rogers RMA BMI (Calculated) < 30 General 50.9(2023 2:44 PM EDT) No Rachel Rogers RMA Eat better, exercise, reach an ideal body weight General No Ni Clinton, school psychological examiner Healing General On track(12/03 9:18 AM EDT) [...] neuropathy weekly. ?? Refer to PCP and/or Concrete Floater, Vascular Specialist as indicated. ?? Monitor patient [...] Diagnoses Not on filedocumented in this encounter Discontinued Medications Medication Sig Discontinue Reason Start Date End Da te RABEprazole (ACIPHEX) 20 mg Oral Tablet, Delayed Release (E.C.) Take 1 Tablet by mouth 2 times daily (before meals). Reorder 04/27/2024 06/08/2024 documented as of this encounter Additional Health Concerns Assessment Noted Time A fall risk assessment has been complete d for the patient 11/08/2023 9:11 AM EST documented as of this encounter Care Teams Therapist Physical Relationship Specialty Start Date End Date Abel Pretty MD [address] [place] [address] PCP - General Family Medicine 12/30/23 Garett Holt MD Internal Medicine-Gastroenterology 12/22/12 Ruiz Stokes MD [address] [place] [id number] Internal Medicine-Cardiovascular Disease 07/25/14 Yenny Schwab MD [address]51 [facility] Building [address] [place] [address] Internal Medicine-Rheumatology 12/11/16 documented as of this encounter
--- OUTSIDE RECORDS SUMMARY | 2024-07-22 15:55 | XMS_ITS | Encounter Summary ---
Author Organization [facility] Address [address] [place] [address] Care Team Providers Care Food Safety Auditor Name Role Phone Provider, No Known Primary Care Provider Unavail able Encounter Details Date Type Department Care Team (Late st Contact Info) Description 08/01/2015 12:28 PM EST - 08/01/2015 11:59 PM EST Hospital Encounter [facility] [address] [place] [address] Janiya Garg MD 1703 [facility] [address] [place] [address] Discharge Disposition: Home or Self Care Social [...] Procedure Name Priority Date/Time Associated Diagnosis Comments CONVERTED (HISTORICAL) SURGICAL PATHOLOGY Routine 08/01/2015 1:19 PM EST documented in this encounter Results * Converted Surgical Pathology (08/01/2015 1:19 PM EST) CONVERTED (HISTORICAL) CASE TYPE Surgical Pathology [facility] CONVERTED (HISTORICAL) ACCESSION NUMBER [id number] [facility] CONVERTED (HISTORICAL) RESULT STATUS FINAL [facility] CONVERTED (HISTORICAL) SPECIMEN DESCRIPTION Endometrium, polypectomy [facility] 08/01/2015 1:19 PM EST 08/01/2015 1:19 PM EST Narrative [facility] - 08/02/2015 11:34 AM EST ? [facility] [place] ? [address] [place] [address] ? SURGICAL PATHOLOGY REPORT ? Patient Name: LEISA CAMPOS ? MR#: [id number] ? : 1955 ? Gender: F ? Ordering Physician: JANIYA GARG ? Copy To: [facility] ? Location: [address] Building ? Collected: 08/01/2015 ? Received: 08/01/2015 ? Reported: 08/02/2015 ? Clinical Diagnosis and History ? The working history is postmenopausal bleeding and endometrial polyp. ? Final Diagnosis ? 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 ??See comment: ? COMMENT: ??I have discussed this with Dr. Garg on 08/02/15. ? MHB/sm ? Amendments: ? Electronically Signed Out By ? OLINDA, GLADYS Saha. ? Specimen(s) Received: ? Endometrium, polypectomy ? Gross Description ? Received in formalin labeled endometrial polyp is a 2.5 x 2.5 x 0.5 cm aggregate ? of truong morcellated soft tissue fragments wrapped submitted in toto in one ? cassette. HBM/sm ? Microscopic Description ? Sections show multiple fragments with tubular to irregular glands and some ? polypoid configuration. A focus of crowding and complexity with a [id number]-rj-[id number] ? configuration of the glands is seen. MHB/sm ? Procedures/Addenda ? us Janiya Garg MD PATHOLOGY/CYTOLOGY ORDERAB LES Final Result [facility]
[address] [place] [address], documented in this encounter Visit Diagnoses Not on filedocumented in this encounter Care Teams Food Safety Auditor Relationship Specialty Start Date End Date Provider, No Known [facility] [place] [address] PCP - General 06/15/15 08/26/15 documented as of this encounter
--- OUTSIDE RECORDS SUMMARY | 2024-07-22 15:55 | XMS_ITS | Encounter Summary ---
Author Organization [facility] Address [address] [place] [address] Care Team Providers Care Nipple Machine Operator Name Role Phone Provider, No Known Primary Care Provider Unavail able Encounter Details Date Type Department Care Team (Late st Contact Info) Description 10/11/2015 10:07 AM EST - 11/06/2015 11:59 PM EST Hospital Encounter [facility] [address] [place] [phone] Bre Reina MD Discharge Disposition: Home or [...] on filedocumented in this encounter Care Teams Nipple Machine Operator Relationship Specialty Start Date End Date Provider, [place] [address] PCP - General 09/08/15 11/26/15 documented as of this encounter
--- OUTSIDE RECORDS SUMMARY | 2024-07-22 15:56 | XMS_ITS | Encounter Summary ---
Author Organization [place] [address] Care Team Providers Care Pocketbook Maker Name Role Phone Garett Holt MD Unavailable [phone] Ruiz Stokes MD Unavailable [phone] Yenny Schwab MD Unavailable [phone] Abel Pretty MD Primary Care Provider Reason for Visit * Reason Onset Date Comments Home Health 01/06/2024 med clarificatio n Encounter Details Date Type Department Care Team (Late st Contact Info) Description 01/06/2024 Telephone [facility] [address] [place] [address] Abel Pretty MD [address] [place], [place] [id number] Home Health (med clarification ) Social History Tobacco Use Types Packs/Day Years [...] Date Recorded PHQ-2 Total Score 0 01/03/2024 [facility] - Occupational Stress [...] Refills Last Filled Start Date End Date lisinopriL (PRINIVIL;ZESTRIL) 10 mg Oral Tablet Take 1 Tablet by mouth daily. 30 Tablet 01/06/2024 02/16/2024 documented in this encounter Miscellaneous Notes * Addendum Note - Alejandro Calabrese RMA - 01/06/2024 3:13 PM EDTAddended by: ALEJANDRO CALABRESE on: 01/06/2024 03:13 PM Modules accepted: Orders * Telephone Encounter - Alejandro Calabrese RMA - 01/06/2024 3:[address] Pretty pt is supposed to be on this med, refill sent. Fide orta aware * Telephone Encounter - Abel Pretty MD - 01/06/2024 3:11 PM EDT yes * Telephone Encounter - DonnyJulia thao - 01/06/2024 2:44 PM EDT Select the most appropriate reason for this telephone message: Medication Management/Problem Who is calling? Other Fide w/ [facility] What medication(s) do you have concerns about: Disp Refills Start End lisinopriL (PRINIVIL;ZESTRIL) 10 mg Oral Tablet -- -- 06/25/2023 -- Class: Historical Med Prescribing provider: What are your concerns/request: would like to know if pt should be on this med Desired outcome: Clarification of prescription Last appointment date: Pharmacy: Additional notes: documented in this encounter Plan of Treatment Upcoming Encounters Date Type Department Care Team (Late st Contact Info) Description 07/29/2024 9:00 AM EST Appointment [facility] [address] [place], [place] [phone] Jomar Kim MD [address] [place] [address] documented as of this encounter Goals Goal Patient Goal Type Associated Problems Recent Progress Patient-Stated? Author Blood Pressure < 140/90 Blood Pressure 110/72(04/09 2:44 PM EDT) No Rachel Rogers RMA BMI (Calculated) < 30 General 50.9(2023 2:44 PM EDT) No Rachel Rogers RMA Eat better, exercise, reach an ideal body weight General No Ni Clinton, riding double Healing General On track(12/03 9:18 AM EDT) No Bessie Morse, MATT Note: Wound volume reduction goals ?? 50% [...] neuropathy weekly. ?? Refer to PCP and/or Bridge Gang Worker, Vascular Specialist as indicated. ?? Monitor [...] Discontinue Reason Start Date End Da te lisinopriL (PRINIVIL;ZESTRIL) 10 mg Oral Tablet Reorder 06/25/2023 01/06/2024 documented as of this encounter Additional Health Concerns Assessment Noted Time A fall risk assessment has been complete d for the patient 11/08/2023 9:11 AM EST documented as of this encounter Care Teams Pocketbook Maker Relationship Specialty Start Date End Date Abel Pretty MD [address] [place] [address] PCP - General Family Medicine 12/30/23 Garett Holt MD Internal Medicine-Gastroenterology 12/22/12 Ruiz Stokes MD [address] [place] [address] Internal Medicine-Cardiovascular Disease 07/25/14 Yenny Schwab MD [address] [address] Internal Medicine-Rheumatology 12/11/16 documented as of this encounter
--- OUTSIDE RECORDS SUMMARY | 2024-07-22 15:56 | XMS_ITS | Encounter Summary ---
Author Organization [place] [address] Care Team Providers Care Software Test Automation Engineer Name Role Phone Garett Holt MD Unavailable [phone] Ruiz Stkoes MD Unavailable [phone] Yenny Schwab MD Unavailable [phone] Abel Pretty MD Primary Care Provider Reason for Referral * Consultation (Routine) - Pending Review Specialty Diagnoses / Procedures Referred By Ron bansal Referred To Contact General Surgery Diagnoses Screening for colon cancer Abel Pretty MD [address] [place] [address] Phone: tel: fax: [facility] [address] [facility] [address] [place] [address] Phone: tel: fax: Referral ID Status Reason Start Date Expiration Date V isits Requested Visits Authorized [id number] Pending Review 01/03/2024 01/02/2025 1 1 Reason for Visit * Reason Comments Leg Swelling And drainage, left l eg, since yesterday Obesity Weight fluctuating Shortness of Breath Edema Hip Pain Back Pain Encounter Details Date Type Department Care Team (Late st Contact Info) Description 01/03/2024 10:45 AM EDT Office Visit [facility] [address] [place] [address] Abel Pretty MD [address] [place] [address] Screening for colon cancer (Primary Dx); PMR (polymyalgia rheumatica) (HCC); Chronic diastolic congestive heart failure (HCC); Chronic bronchitis, unspecified chronic bronchitis type (HCC); Atherosclerosis of aorta (HCC); Lower extremity edema; Venous stasis dermatitis of left lower extremity Social History Tobacco Use Types Packs/Day Years [...] Date Recorded PHQ-2 Total Score 0 01/03/2024 [facility] [place] [facility] Occup[facility] ional [facility] - Occupational Stress [...] on file documented as of this encounter Last Filed Vital Signs Vital Sign Reading Time Taken Comments Blood Pressure 100/64 01/03/2024 10:49 AM EDT Pulse - - Temperature 36.7 ??C (98 ??F) 01/03/2024 10:49 AM EDT Respiratory Rate - - Oxygen Saturation - - Inhaled Oxygen Concentration - - Weight 122 kg (269 lb) 01/03/2024 10:49 AM EDT Height - - Body Mass Index 46.17 12/15/2023 10:06 AM EDT documented in this encounter Functional Status * Is the [...] Refills Last Filled Start Date End Date hydroCHLOROthiazid e 50 mg Oral TabletIndications: Lower extremity edema Take 1 Tablet by mouth daily. 30 Tablet 2 01/03/2024 04/01/2024 fUROsemide (LASIX) 40 mg Oral TabletIndications: Lower extremity edema,Venous stasis dermatitis of left lower extremity One tab twice a day as needed. 60 Tablet 2 01/03/2024 06/08/2024 documented in this encounter Progress Notes * Abel Pretty MD - 01/03/2024 10:45 AM EDT Vitals: 01/03/24 1049 BP: 100/64 Temp: 98 ??F (36.7 ??C) Weight: 269 lb (122 kg) Body mass index is 46.17 kg/m??. SUBJECTIVE: Chief Complaint Patient presents with Leg Swelling And drainage, left leg, since yesterday Obesity Weight fluctuating Shortness of Breath Edema Hip Pain Back Pain HPI: Leg Swelling This is a new problem. The current episode started yesterday. The problem occurs constantly. The problem has been unchanged. Pertinent negatives include no abdominal pain, chest pain, coughing, fever, headaches, joint swelling or rash. Obesity This is a chronic problem. The current episode started more than 1 year ago. The problem occurs constantly. The problem has been waxing and waning. Pertinent negatives include no abdominal pain, chest pain, coughing, fever, headaches, joint swelling or rash. Shortness of Breath This is a new problem. The current episode started in the past 7 days. The problem has been unchanged. Associated symptoms include leg swelling. Pertinent negatives include no abdominal pain, chest pain, fever, headaches or rash. Edema This is a new problem. The current episode started in the past 7 days. The problem occurs constantly. The problem has been unchanged. Pertinent negatives include no abdominal pain, chest pain, coughing, fever, headaches, joint swelling or rash. Hip Pain This is a recurrent problem. The current episode started 1 to 4 weeks ago. The problem occurs constantly. The problem has been gradually worsening. Pertinent negatives include no fever. Back Pain This is a new problem. The current episode started 1 to 4 weeks ago. The problem occurs constantly.The problem has been unchanged. Pertinent negatives include no abdominal pain, chest pain, coughing, fever, headaches, joint swelling or rash. Taking two lasix daily. Trulance, Amitiza, Linzess to expensive. Review of Systems Constitutional: Negative for fever. Eyes: Negative for visual disturbance. Respiratory: Positive for shortness of breath. Negative for cough. Cardiovascular: Positive for leg swelling. Negative for chest pain and palpitations. Gastrointestinal: Negative for abdominal pain, constipation and diarrhea. Genitourinary: Negative for difficulty urinating. Musculoskeletal: Positive for back pain. Negative for joint swelling. Skin: Negative for rash. Neurological: Negative for dizziness, light-headedness and headaches. OBJECTIVE: Physical Exam Vitals reviewed. Constitutional: General: She is not in acute distress. Appearance: Normal appearance. She is well-developed. She is not ill-appearing. HENT: Head: Normocephalic and atraumatic. Right Ear: Tympanic membrane normal. Tympanic membrane is not erythematous or bulging. Left Ear: Tympanic membrane normal. Tympanic membrane is not erythematous or bulging. Eyes: General: Right eye: No discharge. Left eye: No discharge. Conjunctiva/sclera: Conjunctivae normal. Cardiovascular: Rate and Rhythm: Normal rate and regular rhythm. Heart sounds: Normal heart sounds. No murmur heard. No friction rub. No gallop. Pulmonary: Effort: Pulmonary effort is normal. No respiratory distress. Breath sounds: Normal breath sounds. No wheezing or rales. Abdominal: General: Bowel sounds are normal. Palpations: Abdomen is soft. Musculoskeletal: General: Swelling present. Normal range of motion. Right lower leg: Edema present. Left lower leg: Edema present. Skin: General: Skin is warm. Findings: No rash. Neurological: Mental Status: She is alert. Psychiatric: Mood and Affect: Mood normal. Thought Content: Thought content normal. Assessment Diagnoses and all orders for this visit: Screening for colon cancer - SCREENING COLONOSCOPY PMR (polymyalgia rheumatica) (HCC) (Chronic) Comments: No issues at this time Chronic diastolic congestive heart failure (HCC) (Chronic) Comments: Sees cardiology Chronic bronchitis, unspecified chronic bronchitis type (HCC) (Chronic) Comments: Continue inhalers Atherosclerosis of aorta (HCC) (Chronic) Comments: Sees cardiology Lower extremity edema Comments: Stop Amlodipine, monitor BP at home closely. Orders: - fUROsemide (LASIX) 40 mg Oral Tablet; One tab twice a day as needed. Dispense: 60 Tablet; Refill:2 - hydroCHLOROthiazide 50 mg Oral Tablet; Take 1 Tablet by mouth daily. Dispense: 30 Tablet; Refill:2 - BASIC METABOLIC PANEL; Future - CBC WITH DIFF; Future Venous stasis dermatitis of left lower extremity - fUROsemide (LASIX) 40 mg Oral Tablet; One tab twice a day as needed. Dispense: 60 Tablet; Refill:2 Increase diuretics, recheck labs in 1 week. Patient would benefit from use of a wheelchair to complete ADL's. Patient is able to maneuver a wheelchair within the home and patient has family who is willing and able to provide assistance with the wheelchair. Patient would not achieve the same benefit by ambulating with a cane or walker as thistype of DME would not reduce fall risk. A light weight wheelchair is recommended to reduce stress on upper extremities when maneuvering wheelchair. documented in this encounter Plan of Treatment Upcoming Encounters Date Type Department Care Team (Late st Contact Info) Description 07/29/2024 9:00 AM EST Appointment [facility] [address] [place] [address] Jomar Kim MD [address] [place] [address] Scheduled Orders Name Type Priority Associated Diagnoses Orde r Schedule BASIC METABOLIC PANEL Lab Routine Lower extremity edema 1 Occurrences starting 01/03/2024 until 01/02/2025 CBC WITH DIFF Lab Routine Lower extremity edema 1 Occurrences starting 01/03/2024 until 01/02/2025 Scheduled Referrals Name Type Priority Associated Diagnoses Order Schedule SCREENING COLONOSCOPY Outpatient Referral Routine Screening for colon cancer Ordered: 01/03/2024 documented as of this encounter Goals Goal [...] neuropathy weekly. ?? Refer to PCP and/or Virtual Recruiter, Vascular Specialist as indicated. ?? Monitor patient [...] as of this encounter Visit Diagnoses Diagnosis Screening for colon cancer- Primary Special screening for malignant neoplasms, colon PMR (polymyalgia rheumatica) (HCC) Polymyalgia rheumatica Chronic diastolic congestive heart failure (HCC) Chronic diastolic heart failure Chronic bronchitis, unspecified chronic bronchitis type (HCC) Atherosclerosis of aorta (HCC) Atherosclerosis of aorta Lower extremity edema Edema Venous stasis dermatitis of left lower extremity documented in this encounter Discontinued Medications Medication Sig Discontinue Reason Start Date End Da te hydroCHLOROthiazide 25 mg Oral TabletIndications:Lower extremity edema Take 1 Tablet by mouth daily. Cancelled by MD 12/15/2023 01/03/2024 fUROsemide (LASIX) 40 mg Oral TabletIndications:Lower extremity edema,Venous stasis dermatitis of left lower extremity One tab daily as needed. Reorder 12/15/2023 01/03/2024 documented as of this encounter Historical Medications * This list may reflect changes made after this encounter. hydroCHLOROthiazid e 25 mg Oral Tablet Take 50 mg by mouth daily. 12/15/2023 added in this encounter Additional Health Concerns Assessment Noted Time A fall risk assessment has been complete d for the patient 11/08/2023 9:11 AM EST documented as of this encounter Care Teams Software Test Automation Engineer Relationship Specialty Start Date End Date Abel Pretty MD [address] [place] [address] PCP - General Family Medicine 12/30/23 Garett Holt MD Internal Medicine-Gastroenterology 12/22/12 Ruiz Stokes MD [address] [place] [address] Internal Medicine-Cardiovascular Disease 07/25/14 Yenny Schwab MD [address] [address] Internal Medicine-Rheumatology 12/11/16 documented as of this encounter
--- OUTSIDE RECORDS SUMMARY | 2024-07-22 15:56 | XMS_ITS | Encounter Summary ---
Author Organization [place] [address] Care Team Providers Care Physical Geographer Name Role Phone Garett Holt MD Unavailable [phone] Ruiz Stokes MD Unavailable [phone] Yenny Schwab MD Unavailable [phone] Abel Pretty MD Primary Care Provider Reason for Referral * GI Procedure (Routine) - Pending Review Specialty Diagnoses / Procedures Referred By Contac t Referred To Contact Diagnoses Screening for colon cancer Procedures AMB COLON W ANESTH COMM ORDER Jomar Kim MD [address] [place] [address] Phone: tel: fax: Referral ID Status Reason Start Date Expiration Date V isits Requested Visits Authorized [id number] Pending Review 04/27/2024 04/27/2025 1 1 Reason for Visit * Reason Comments Abdominal Pain Gastroesophageal Reflux Edema * Consultation (Routine) - Pending Review Specialty Diagnoses / Procedures Referred By Contac t Referred To Contact General Surgery Diagnoses Screening for colon cancer Abel Pretty MD [address] [place] [address] Phone: tel: fax: [facility] [address] [place] [address] Phone: tel: fax: Referral ID Status Reason Start Date Expiration Date V isits Requested Visits Authorized [id number] Pending Review 01/03/2024 01/02/2025 1 1 Encounter Details Date Type Department Care Team (Late st Contact Info) Description 04/27/2024 2:20 PM EDT Office Visit [facility] [address] [place] [address] Jomar Kim MD [address] [place] [address] Screening for colon cancer (Primary Dx) Social History Tobacco Use Types Packs/Day Years [...] Date Recorded PHQ-2 Total Score 0 01/03/2024 [facility] - Occupational Stress [...] Pulse 80 04/27/2024 2:44 PM EDT Temperature - - Respiratory Rate - - Oxygen Saturation - - Inhaled Oxygen Concentration - - Weight 122 kg (269 lb) 04/27/2024 2:44 PM EDT pe r patient Height 154.9 cm (5' 1 ) 04/27/2024 2:44 PM EDT Body Mass Index 50.83 04/27/2024 2:44 PM EDT documented in this encounter Functional Status [...] Yes 01/03/2024 10:47 AM EDRodolfo Mcknight MA documented as of this encounter Mental Status * Because of a physical, mental or emotional condition, does this person have serious difficulty concentrating, remembering or making decisions? Answer Entry Date Author No 01/03/2024 10:47 AM EDRodolfo Mcknight MA documented in this encounter Ordered Prescriptions Prescription Sig Dispense Quantity Refills Last Filled Start Date End Date sucralfate (CARAFATE) 100 mg/mL Oral Suspension Take 10 mL by mouth 4 times daily. 414 mL 3 04/27/2024 RABEprazole (ACIPHEX) 20 mg Oral Tablet, Delayed Release (E.C.) Take 1 Tablet by mouth 2 times daily (before meals). 60 Tablet 3 04/27/2024 06/08/2024 documented in this encounter Progress Notes * Jomar Kim MD - 04/27/2024 2:20 PM EDT [facility] Consult Note Primary Care Physician: Abel Pretty MD Reason for referral: Abdominal Pain, Gastroesophageal Reflux, and Edema History of Presenting Illness Alyssa Jamil is a(n) 69 y.o. female asked to see us in consultation by Abel Pretty MD for evaluation of epigastric abdominal pain. 69-year-old female with multiple medical comorbidities whom we are seeing in the office for epigastric abdominal pain. Patient was evaluated for similar symptoms back in 2019 and underwent an upper endoscopy at that time which was unremarkable. Essentially complaining of heartburn and regurgitation and epigastric abdominal pain exacerbated with certain foods such as spicy foods and tomatoes. Denies any nausea or vomiting. No unintentional weight loss. No colonoscopy in over 10 years. No family history of any gastrointestinal cancers or illnesses. Recently had a CT scan of the abdomen and pelvis in December 2023 which was unremarkable. Review of Systems: All review of systems were reviewed and negative except for those mentioned above in the HPI. PMSH: Past Medical History: Diagnosis Date ??? Anemia on iron ??? Ankle swelling ??? Arthritis all over ??? Asthma ??? Cancer (HCC) OVARIAN ??? Clotting disorder (HCC) ??? Diabetes mellitus (HCC) 2014 borderline, type 2 ??? Fibromyalgia ??? Heartburn nausea after eating ??? Hiatal hernia ??? Hyperlipidemia ??? Hypertension ??? 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 Other and unspecified angina pectoris ??? Shortness of breath ??? Sleep apnea SHOULD WEAR CPAP OR BIPAP PER PATIENT ??? Ulcer Past Surgical History: Procedure Laterality Date ??? ARTERY BIOPSY Right 01/06/2017 RIGHT TEMPORAL ARTERY BIOPSY ; Surgeon: Christa Chavez MD; Location: [facility]; Service: General ??? CARDIAC CATHETERIZATION 04/2015 ??? CHOLECYSTECTOMY 1989 ??? COLONOSCOPY ??? COLONOSCOPY 02/17/2013 Surgeon: Garett Holt MD; [facility]; Service: ??? DENTAL SURGERY upper and lower teeth removed ??? UPPER GASTROINTESTINAL ENDOSCOPY ??? UPPER GASTROINTESTINAL ENDOSCOPY 02/17/2013 Surgeon: Garett Holt MD; Location: [facility]; Service: ??? UPPER GASTROINTESTINAL ENDOSCOPY N/A 07/26/2020 ESOPHAGOGASTRODUODENOSCOPY with biopsy; Surgeon: Jomar Kim MD; [facility]; Service: Endoscopy ??? VENTRAL HERNIA REPAIR N/A 04/18/2020 DAVINCI ROBOTIC VENTRAL HERNIA REPAIR WITH MESH ; Surgeon: Regan Butts MD; Location: [facility]; Service: General Medications Current Outpatient Medications Medication Sig Dispense Refill ??? albuterol (PROVENTIL HFA;VENTOLIN HFA) 90 mcg/actuation Inhl HFA Aerosol Inhaler Inhale 2 Puffsinto the lungs every 4 hours as needed for Wheezing. 1 Each 2 ??? albuterol (PROVENTIL) 2.5 mg /3 mL (0.083 %) Inhl Solution for Nebulization Take 3 mL by nebulization every 4 hours as needed for Wheezing. 1 box 6 ??? aspirin 81 mg Oral Tablet, Delayed Release (E.C.) Take 1 Tablet by mouth daily. 90 Tablet 2 ??? atorvastatin (LIPITOR) 20 mg Oral Tablet Take 1 tablet by mouth once daily 90 Tablet 3 ??? Blood Sugar Diagnostic [facility] Strip 1 Strip by [facility].(Non-Drug; Combo Route) route 2 times daily. Per formulary. Dx: E11.9 100 Each 11 ??? Blood-Glucose Meter [facility] Kit Per formulary. Dx. E11.9 1 Kit 0 ??? Blood-Glucose Meter,Continuous (DEXSeeonic G7 SYSTEMS DEVELOPMENT CONSULTANT) [facility] Misc 1 Each by [facility].(Non-Drug; Combo Route) route as needed. 1 Each 11 ??? Blood-Glucose Sensor (DEXCOM G7 SENSOR) [facility] Device 1 Each by [facility].(Non- Drug; Combo Route) route as needed. 1 Each 11 ??? CALCIUM ORAL Take 1 Tab by mouth daily. ??? cholecalciferol, vitamin D3, (VITAMIN D3) 25 mcg (1,000 unit) Oral Tablet Take 1 Tab by mouth daily. 30 Tab 11 ??? dapagliflozin propanediol (FARXIGA) 10 mg Oral Tablet Take 1 Tablet by mouth daily. 30 Tablet 2 ??? docusate sodium (COLACE) 100 mg Oral Capsule Take 1 Capsule by mouth 2 times daily. 60 Capsule 2 ??? empagliflozin (JARDIANCE) 10 mg Oral Tablet Take 1 Tablet by mouth daily. 21 Tablet 0 ??? fluticasone propionate (FLONASE) 50 mcg/actuation Nasl [place], Suspension Use 1 spray(s) in eachnostril once daily 16 g 0 ??? fUROsemide (LASIX) 40 mg Oral Tablet One tab twice a day as needed. 60 Tablet 2 ??? glipiZIDE (GLUCOTROL) 5 mg Oral Tablet Take 1 tablet by mouth once daily 90 Tablet 1 ??? hydroCHLOROthiazide 25 mg Oral Tablet Take 50 mg by mouth daily. ??? hydroCHLOROthiazide 50 mg Oral Tablet Take 1 Tablet by mouth 2 times daily. 60 Tablet 2 ??? Lancets [facility] Misc 1 Each by [facility].(Non-Drug; Combo Route) route 2 times daily. Per formulary. Dx: E11.9 100 Each 11 ??? lisinopriL (PRINIVIL;ZESTRIL) 10 mg Oral Tablet Take 1 tablet by mouth once daily 90 Tablet 1 ??? loratadine (CLARITIN) 10 mg Oral Tablet Take 1 tablet by mouth once daily 63 Tablet 0 ??? meloxicam (MOBIC) 15 mg Oral Tablet Take 1 tablet by mouth once daily 30 Tablet 0 ??? Nebulizer Accessories [facility] Kit Nebulizer accessories 1 Kit 0 ??? olopatadine (PATANOL) 0.1 % Opht Drops Place 1 Drop into both eyes 2 times daily. Administer drops in both eyes. 5 mL 0 ??? ondansetron (ZOFRAN-ODT) 4 mg Oral Tablet, Rapid Dissolve Take 1 Tablet by mouth every 8 hours as needed for Nausea. 15 Tablet 0 ??? ONETOUCH DELICA PLUS LANCET 33 gauge [facility] USE TO CHECK GLUCOSE TWICE DAILY ??? oxybutynin (DITROPAN-XL) 10 mg Oral Tablet Extended Rel 24 hr Take 1 Tablet by mouth daily. 90 Tablet 2 ??? spironolactone (ALDACTONE) 25 mg Oral Tablet Take 1 tablet by mouth once daily 90 Tablet 2 ??? tiZANidine (ZANAFLEX) 4 mg Oral Tablet Take 1 Tablet by mouth 3 times daily as needed. 30 Tablet 0 ??? trospium (SANCTURA) 20 mg Oral Tablet Take 1 Tablet by mouth 2 times daily. 60 Tablet 5 ??? polyethylene glycol (GOLYTELY) 236-22.74-6.74 -5.86 gram Oral Recon Soln Take 4,000 mL by mouthonce for 1 dose. Take as directed by office 4000 mL 0 ??? RABEprazole (ACIPHEX) 20 mg Oral Tablet, Delayed Release (E.C.) Take 1 Tablet by mouth 2 times daily (before meals). 60 Tablet 3 ??? sucralfate (CARAFATE) 100 mg/mL Oral Suspension Take 10 mL by mouth 4 times daily. 414 mL 3 No current facility-administered medications for this visit. Allergy: Allergies Allergen Reactions ??? Spironolactone Nausea And Vomiting and Myalgia ??? Amitriptyline Nausea And Vomiting ??? Amoxil [Amoxicillin] Hives ??? Clarithromycin hives ??? Clindamycin Nausea Only ??? Egg Nausea Only ??? Naproxen Rash ??? Nexium [Esomeprazole Magnesium] Hives and Rash Blisters in Mouth FMH: Family History Problem Relation Age of Onset ??? Heart Disease Father ??? Cataracts Father ??? Diabetes Father ??? Cancer Maternal Grandmother ??? Colon Cancer Maternal Grandmother ??? Anesth Problems Neg Hx Social History: Social History Socioeconomic History ??? Marital status: Spouse name: Not on file ??? Number of children: 2 ??? Years of education: Not on file ??? Highest education level: Not on file Occupational History ??? Occupation: disabled Tobacco Use ??? Smoking status: Former Current packs/day: 0.00 Average packs/day: 1.5 packs/day for 13.0 years (19.5 ttl pk-yrs) Types: Cigarettes Start date: 09/08/1971 Quit date: 09/07/1984 Years since quittin.6 Passive exposure: Current ??? Smokeless tobacco: Never Vaping Use ??? Vaping status: Never Used Substance and Sexual Activity ??? Alcohol use: No Alcohol/week: 0.0 oz ??? Drug use: No ??? Sexual activity: Not Currently Partners: Male control/protection: Post-menopausal Other Topics Concern ??? Not on file Social History Narrative ??? Not on file Social Determinants of Health Financial Resource Strain: Low Risk (02/07/2021) Overall Financial Resource Strain (CARDIA) ??? Difficulty of Paying Living Expenses: Not very hard Food Insecurity: No Food Insecurity (02/07/2021) Hunger Vital Sign ??? Worried About Running Out of Food in the Last Year: Never true ??? Ran Out of Food in the Last Year: Never true Transportation Needs: Unmet Transportation Needs (02/07/2021) PRAPARE - Transportation ??? Lack of Transportation (Medical): Yes ??? Lack of Transportation (Non-Medical): Yes Physical Activity: Insufficiently Active (02/07/2021) Exercise Vital Sign ??? Days of Exercise per Week: 3 days ??? Minutes of Exercise per Session: 20 min Stress: No Stress Concern Present (02/07/2021) [place] [facility] - Occupational Stress Questionnaire ??? Feeling of Stress : Only a little Social Connections: Unknown (06/18/2023) Received from [facility] Family and Community Support ??? Help with Day-to-Day Activities: Not on file ??? Lonely or Isolated: Not on file Intimate Partner Violence: Unknown (06/18/2023) Received from [facility] Abuse Screen ??? Unsafe at Home or Work/School: Not on file ??? Feels Threatened by Someone?: Not on file ??? Does Anyone Keep You from Contacting Others or Doint Things Outside the Home?: Not on file ??? Physical Sign of Abuse Present: Not on file Housing Stability: Unknown (06/18/2023) Received from [facility] Housing Stability ??? Current Living Arrangements: Not on file ??? Potentially Unsafe Housing Conditions: Not on file BP 110/72 (BP Location: Left arm, Patient Position: Sitting) Pulse 80 Ht 5' 1 (1.549 m) Wt 269 lb (122 kg) Comment: per patient BMI 50.83 kg/m?? Physical Exam Vitals and nursing note reviewed. Constitutional: General: She is not in acute distress. Appearance: Normal appearance. She is not ill-appearing. HENT: Head: Normocephalic and atraumatic. Eyes: Extraocular Movements: Extraocular movements intact. Cardiovascular: Rate and Rhythm: Normal rate. Pulmonary: Effort: No respiratory distress. Musculoskeletal: General: Normal range of motion. Cervical back: Normal range of motion. Skin: Coloration: Skin is not jaundiced. Neurological: General: No focal deficit present. Mental Status: She is alert and oriented to person, place, and time. Mental status is at baseline. Psychiatric: Mood and Affect: Mood normal. Behavior: Behavior normal. Thought Content: Thought content normal. Judgment: Judgment normal. Laboratory: Lab Results Component Value Date WBC 10.4 (H) 03/27/2024 HGB 10.9 (L) 03/27/2024 HCT 35.8 03/27/2024 MCV 91.3 03/27/2024 PLT 266 03/27/2024 Lab Results Component Value Date ALT 44 (H) 12/12/2023 AST 24 12/12/2023 ALKPHOS 100 12/12/2023 BILIDIR <0.2 11/08/2014 PROT 8.1 12/12/2023 LIPASE 30 12/12/2023 Lab Results Component Value Date CREATININE 0.91 03/27/2024 BUN 24 (H) 03/27/2024 NA 138 03/27/2024 K 3.4 (L) 03/27/2024 CL 97 (L) 03/27/2024 CO2 28 03/27/2024 No results found for: INR , PROTIME Imaging: No results found for this or any previous visit. No results found for this or any previous visit. No results found for this or any previous visit. Previous imaging and any available records were reviewed in the medical chart and CareEverywhere and summarized in the HPI. Assessment/Plan 69-year-old female with multiple medical comorbidities whom we are evaluating in the office today for ongoing issues with epigastric discomfort and regurgitation unchanged from previous evaluations 3to 4 years ago. No alarm signs or symptoms to warrant repeat upper endoscopy as the previous endoscopy done for similar symptoms was unremarkable. Will schedule for age-appropriate colon cancer screening with a colonoscopy. Will do a therapeutic switch in her PPI to rabeprazole 20 mg twice daily as a trial. Will also add sucralfate 10 mL 4 times daily as needed for the symptoms. 1. Screening for colon cancer - AMB COLON W ANESTH COMM ORDER RTC postprocedure Thank you Sukhwinder, Abel Benson MD for asking me to see Alyssa Christa Jamil in consultation This note was generated by [employer] Voice Recognition technology. It has been reviewed by the undersigned, however, may still contain unintended errors. Jomar Kim MD Manhole Builder [facility] [phone] documented in this encounter Plan of Treatment Upcoming Encounters Date Type Department Care Team (Late st Contact Info) Description 07/29/2024 9:00 AM EST Appointment [facility] [address] [place] [address] Jomar Kim MD [address] [place] [address] documented as of this encounter Goals Goal Patient Goal Type Associated Problems Recent Progress Patient-Stated? Author Blood Pressure < 140/90 Blood Pressure 110/72(04/09 2:44 PM EDT) No Rachel Rogers, MULU BMI (Calculated) < 30 General 50.9(2023 2:44 [...] neuropathy weekly. ?? Refer to PCP and/or Architecture Technician, Vascular Specialist as indicated. ?? Monitor patient [...] Primary Special screening for malignant neoplasms, colon documented in this encounter Discontinued Medications Medication Sig Discontinue Reason Start Date End Da te pantoprazole (PROTONIX) 40 mg Oral Tablet, Delayed Release (E.C.) Take 1 Tablet by mouth daily. Patient Reported not taking medication 12/15/2023 04/27/2024 documented as of this encounter Orders Nursing Count Last Ordered Date First Orde red Date AMB COLON W ANESTH COMM ORDER 1 04/27/2024 documented in this encounter Additional Health Concerns Assessment Noted Time A fall risk assessment has been complete d for the patient 11/08/2023 9:11 AM EST documented as of this encounter Care Teams Physical Geographer Relationship Specialty Start Date End Date Abel Pretty MD [address] [place] [address] PCP - General Family Medicine 12/30/23 Garett Holt MD Internal Medicine-Gastroenterology 12/22/12 Ruiz Stokes MD [address] [place] [address] [id number] Internal Medicine-Cardiovascular Disease 07/25/14 Yenny Schwab MD [address] [address] Internal Medicine-Rheumatology 12/11/16 documented as of this encounter
--- OUTSIDE RECORDS SUMMARY | 2024-07-22 15:56 | XMS_ITS | Encounter Summary ---
Author Organization [place] [address] Care Team Providers Care Service Tester Name Role Phone Garett Holt MD Unavailable Ruiz Stokes MD Unavailable [phone] Yneny Schwab MD Unavailable [phone] Abel Pretty MD Primary Care Provider Reason for Visit * Reason Onset Date Comments Other 01/26/2024 Encounter Details Date Type Department Care Team (Late st Contact Info) Description 01/26/2024 Telephone [facility] [address] [place] [address] Vicky Oliva MA Other Social History Tobacco Use Types Packs/Day Years [...] Date Recorded PHQ-2 Total Score 0 01/03/2024 [facility] - [...] Rodolfo Skelton MA documented in this encounter Miscellaneous Notes * Telephone Encounter - Vicky Oliva MA - 01/26/2024 4:33 PM EDT No answer,LVM Regarding wheelchair Called HH advised most recent weight we have is 269, office notes printed of and rx ready documented in this encounter Plan of Treatment Upcoming Encounters Date Type Department Care Team (Late st Contact Info) Description 07/29/2024 9:00 AM EST Appointment [facility] [address] [place], [place] [id number] Jomar Kim MD [address] [place] [address] documented as of this encounter Goals Goal Patient Goal Type Associated Problems Recent Progress Patient-Stated? Author Blood Pressure < 140/90 Blood Pressure 110/72(04/09 2:44 PM EDT) No Rachel Rogers RMA BMI (Calculated) < 30 General 50.9(2023 2:44 PM EDT) No Rachel Rogers RMA Eat better, exercise, reach an ideal body weight General No Ni Clinton, statistical programmer Healing General On track(12/03 9:18 AM EDT) [...] neuropathy weekly. ?? Refer to PCP and/or Marine Propulsion Technician, Vascular Specialist as indicated. ?? Monitor [...] documented as of this encounter Care Teams Service Tester Relationship Specialty Start Date End Date Abel Pretty MD [address] [place] [address] PCP - General Family Medicine 12/30/23 Garett Holt MD Internal Medicine-Gastroenterology 12/22/12 Ruiz Stokes MD [address] [phone] Internal Medicine-Cardiovascular Disease 07/25/14 Yenny Schwab MD [address] [place] [id number] Internal Medicine-Rheumatology 12/11/16 documented as of this encounter
--- OUTSIDE RECORDS SUMMARY | 2024-07-22 15:56 | XMS_ITS | Encounter Summary ---
Author Organization [place] [address] Care Team Providers Care Senior Process Control Tech Name Role Phone Garett Holt MD Unavailable [phone] Ruiz Stokes MD Unavailable [phone] Yenny Schwab MD Unavailable [phone] Abel Pretty MD Primary Care Provider Reason for Visit * Reason Onset Date Comments Orders 01/08/2024 PT Other 01/08/2024 fax number Encounter Details Date Type Department Care Team (Late st Contact Info) Description 01/08/2024 Telephone [facility] [address] [place] [address] Abel Pretty MD [address] [place] [address] Orders (PT); Other (fax number) Social History Tobacco Use Types Packs/Day Years [...] Date Recorded PHQ-2 Total Score 0 01/03/2024 [facility] - Occupational Stress Questionnaire Answer Date [...] encounter Miscellaneous Notes * Telephone Encounter - Joselyn Chance RN - 01/15/2024 2:58 PM EDT 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 Spoke with Annemarie again from [email or web address] who reports she did contact patients daughter and explained this information. Daughter was unsatisfied with this response and requested another referral. Annemarie advised a verbal order can be provided for them to re-evaluate. Verbal order has been provided as had already approved referral being sent. * Telephone Encounter - Ana Corral - 01/15/2024 2:25 PM EDT Select the most appropriate reason for this telephone message: Other Who is calling (name & relationship to patient if not the patient): Jessica Santana-daughter What is needed OR why are they calling: Calling back to provide fax number When is this needed by: today Where does this information need to go: office Additional information: Please advise fax# [phone] * Telephone Encounter - Joselyn Chance RN - 01/08/2024 1:17 PM EDT Brake Engineer contacted [facility] and spoke to Annemarie who reports nursing did a re cert on patient on Friday01/06/24. Nothing additional is needed from PCP office at this time. Contacted patient's daughter Clementina and advised of this information. Clementina reports nursing did re-cert however physical therapy has not been out for 2 weeks. corporate fitness program coordinator returned call to Annemarie and obtained additional information. The physical therapist had discharged patient as it is felt she has reached max potential with physical therapy. corporate fitness program coordinator requested Annemaire or the physical therapist contact patient and or daughter Clementinaand explain this information. Annemarie has advised [facility] will follow up with patient. * Telephone Encounter - Abel Pretty MD - 01/08/2024 1:07 PM EDT Referral placed on 12/29, do we need to fax? * Telephone Encounter - Ana Corral - 01/08/2024 9:13 AM EDT Select the most appropriate reason for this telephone message: Order Request Who is requesting the Order(s): Jessica-daughter What Orders are being requested: Physical Therapy Reason Orders are Needed/Diagnosis: Trouble walking-SOB Is a verbal order being requested: No If non-[facility], where should the order be faxed (include fax number): n/a Frequency: n/a Additional Notes: Pt is currently getting PT thru [facility] but they need a recert. Please contact [facility] PH: [phone] [facility] in regards to this.Please advise. documented in this encounter Plan of Treatment Upcoming Encounters Date Type Department Care Team (Late st Contact Info) Description 07/29/2024 9:00 AM EST Appointment [facility] [address] [place] [id number] Jomar Kim MD [address] [place] [address] documented as of this encounter Goals Goal Patient Goal Type Associated Problems Recent Progress Patient-Stated? Author Blood Pressure < 140/90 Blood Pressure 110/72(04/09 2:44 PM EDT) No Rachel Rogers RMA BMI (Calculated) < 30 General 50.9(2023 2:44 PM EDT) No Rachel Rogers RMA Eat better, exercise, reach an ideal body weight General No Ni Clinton, reinforcer Healing General On track(12/03 9:18 AM EDT) [...] neuropathy weekly. ?? Refer to PCP and/or Leak Detection Engineer, Vascular Specialist as indicated. ?? Monitor patient [...] documented as of this encounter Care Teams Senior Process Control Tech Relationship Specialty Start Date End Date Abel Pretty MD [address] [place] [address] PCP - General Family Medicine 12/30/23 Garett Holt MD Internal Medicine-Gastroenterology 12/22/12 Ruiz Stokes MD [address] [place] [address] Internal Medicine-Cardiovascular Disease 07/25/14 Yenny Schwab MD [address] [address] Internal Medicine-Rheumatology 12/11/16 documented as of this encounter
--- OUTSIDE RECORDS SUMMARY | 2024-07-22 15:56 | XMS_ITS | Encounter Summary ---
Author Organization [facility] [place] [address] Care Team Providers Care Children'S Aide Name Role Phone Garett Holt MD Unavailable [phone] Ruiz Stokes MD Unavailable [phone] Yenny Schwab MD Unavailable [phone] Abel Pretty MD Primary Care Provider Encounter Details Date Type Department Care Team (Latest Contact Info) Description 03/27/2024 Travel Social History Tobacco Use Types Packs/Day Years [...] Date Recorded PHQ-2 Total Score 0 01/03/2024 [facility] - Occupational Stress [...] 9:00 AM EST Appointment [facility] [address] [place] [address] Jomar Kim MD [address] [place] [address] documented as of this encounter Goals Goal Patient Goal Type Associated Problems Recent Progress Patient-Stated? Author Blood Pressure < 140/90 Blood Pressure 110/72(04/09 2:44 PM EDT) No Rachel Rogers RMA BMI (Calculated) < 30 General 50.9(2023 2:44 PM EDT) No Rachel Rogers RMA Eat better, exercise, reach an ideal body weight General No Ni Clinton, arm rest builder Healing General On track(12/03 9:18 AM EDT) [...] neuropathy weekly. ?? Refer to PCP and/or Custom Harvester, Vascular Specialist as indicated. ?? Monitor patient compliance with wound care, diabetes management and proper offloading. Patients abdominal discomfort will improve or resolve by next follow up call from RN CC. General Not on track(03/09 11:41 AM EDT) No Jsoelyn Chance RN Stay Tobacco Free Lifestyle On [...] documented as of this encounter Care Teams Children'S Aide Relationship Specialty Start Date End Date Abel Pretty MD [address] [place] [address] PCP - General Family Medicine 12/30/23 Garett Holt MD Internal Medicine-Gastroenterology 12/22/12 Ruiz Stokes MD [address] [place] [address] Internal Medicine-Cardiovascular Disease 07/25/14 Yenny Schwab MD [address] [address] Internal Medicine-Rheumatology 12/11/16 documented as of this encounter
--- OUTSIDE RECORDS SUMMARY | 2024-07-22 15:56 | XMS_ITS | Encounter Summary ---
Author Organization [place] [address] Care Team Providers Care Transmitter Operator Name Role Phone Garett Holt MD Unavailable [phone] Ruiz Stokes MD Unavailable [phone] Yenny Schwab MD Unavailable [phone] Abel Pretty MD Primary Care Provider Reason for Visit * Reason Onset Date Comments Medication Management 01/23/2024 heavy duty wheel chair Encounter Details Date Type Department Care Team (Late st Contact Info) Description 01/23/[address] [facility] [address] [place] [address] Abel Pretty MD [address] [place], [place] [id number] Medication Management (heavy duty wheel chair) Social History Tobacco Use Types Packs/Day Years [...] Date Recorded PHQ-2 Total Score 0 01/03/2024 [facility] - [...] encounter Miscellaneous Notes * Telephone Encounter - Elkin Barfield RMA - 02/16/2024 5:20 PM EDT Faxed * Telephone Encounter - Abel Pretty MD - 02/16/2024 2:01 PM EDT Please fax last note with addendum on wheelchair to [phone] * Telephone Encounter - Vicky Oliva MA - 02/16/2024 10:12 AM EDT Please advise * Telephone Encounter - Guera Strickland - 02/16/2024 9:37 AM EDT Select the most appropriate reason for this telephone message: Other Who is calling (name & relationship to patient if not the patient): Vicky Tejeda [facility] [phone] What is needed OR why are they calling: Vicky asking for a call back to discuss PCP note. When is this needed by: 6-10 Where does this information need to go: Dr. Pretty Additional information: Please advise. * Telephone Encounter - Abel Pretty MD - 01/26/2024 4:39 PM EDT Note addendum made * Telephone Encounter - Vicky Oliva MA - 01/26/2024 4:25 PM EDT Needs Rx for heavy duty wheelchair and that patient is over 300 lbs, and notes stating patient unable to use a walker * Telephone Encounter - Abel Pretty MD - 01/26/2024 4:20 PM EDT Rx filled out, can fax * Telephone Encounter - Doron Rojas APRN - 01/23/2024 2:22 PM EDT Saw you recently * Telephone Encounter - Ana Corral - 01/23/2024 1:19 PM EDT Select the most appropriate reason for this telephone message: Medication Management/Problem Who is calling? Other Vicky with [facility] What medication(s) do you have concerns about: Wheel chair prescription Prescribing provider: Dr. Pretty What are your concerns/request: Vicky is requesting a new prescription for a heavy duty wheel chair due to the pt being over 300 pounds and she needs office notes as well. Desired outcome: Clarification of prescription Last appointment date: 01-03-24 Pharmacy: [facility] Additional notes: [phone] documented in this encounter Plan of Treatment Upcoming Encounters Date Type Department Care Team (Late st Contact Info) Description 07/29/2024 9:00 AM EST Appointment [facility] [address] [place] [address] Jomar Kim MD [address] [place] [address] documented as of this encounter Goals Goal Patient Goal Type Associated Problems Recent Progress Patient-Stated? Author Blood Pressure < 140/90 Blood Pressure 110/72(04/09 2:44 PM EDT) No Rachel Rogers RMA BMI (Calculated) < 30 General 50.9(2023 2:44 PM EDT) No Rachel Rogers RMA Eat better, exercise, reach an ideal body weight General No Ni Clinton, resource paraprofessional Healing General On track(12/03 9:18 AM EDT) [...] weekly. ?? Refer to PCP and/or Concrete Mixer Truck Driver, Vascular Specialist as indicated. ?? Monitor patient compliance with wound care, diabetes management and proper offloading. Patients abdominal discomfort will improve or resolve by next follow up call from RN CC. General Not on track(03/09 11:41 AM EDT) No Joselyn Chance RN Stay Tobacco Free Lifestyle On track(02/07 10:23 AM EDT) Wendy Moon LPN HEMOGLOBIN A1C < 7.0 Result Component 5.6( 024 3:04 PM EST) No Rachel Rogers RMA documented as of this encounter Visit Diagnoses Not on filedocumented in this encounter Additional Health Concerns Assessment Noted Time A fall risk assessment has been complete d for the patient 11/08/2023 9:11 AM EST documented as of this encounter Care Teams Transmitter Operator Relationship Specialty Start Date End Date Abel Pretty MD [address] [place] [address] PCP - General Family Medicine 12/30/23 Garett Holt MD Internal Medicine-Gastroenterology 12/22/12 Ruiz Stokes MD [address] [place] [address] Internal Medicine-Cardiovascular Disease 07/25/14 Yenny Schwab MD [address] [id number] Internal Medicine-Rheumatology 12/11/16 documented as of this encounter
--- OUTSIDE RECORDS SUMMARY | 2024-07-22 15:56 | XMS_ITS | Encounter Summary ---
Author Organization [place] [address] Care Team Providers Care Senior Branch Manager Name Role Phone Garett Holt MD Unavailable [phone] Ruiz Stokes MD Unavailable [phone] Yenny Schwab MD Unavailable [phone] Abel Pretty MD Primary Care Provider Reason for Visit * Reason Onset Date Comments [facility] Out[facility] 06/08/2024 Diabet ic eye exam Encounter Details Date Type Department Care Team (Late st Contact Info) Description 06/08/2024 Telephone [facility] [address] [place] [address] Abel Pretty MD [address] [place] [address] [facility] Outreach (Diabetic eye exam ) Social History Tobacco Use Types Packs/Day [...] Recorded PHQ-2 Total Score 0 01/03/2024 [facility] Occupat ional Health - Occupational Stress [...] encounter Miscellaneous Notes * Telephone Encounter - Sarah Valadez RMA - 06/08/2024 10:31 AM EDT 1st Attempt: 'Rock' Your Paper message sent to patient to discuss scheduled appointment for diabetic eye exam in July from care gap list. Care Gaps Addressed security operations manager: Diabetes Eye Exam Outcome: Patient made aware of open care gaps [facility] Quality Transformation Department Clinical Pool:[id number] documented in this encounter Plan of Treatment Upcoming Encounters Date Type Department Care Team (Late st Contact Info) Description 07/29/2024 9:00 AM EST Appointment [facility] [address] [place] [address] Jomar Kim MD [address] [place] [address] documented as of this encounter Goals Goal Patient Goal Type Associated Problems Recent Progress Patient-Stated? Author Blood Pressure < 140/90 Blood Pressure 110/72(04/09 2:44 PM EDT) No Rachel Rogers RMA BMI (Calculated) < 30 General 50.9(2023 2:44 PM EDT) No Rachel Rogers RMA Eat better, exercise, reach an ideal body weight General No Ni Clinton bread icer Healing General On track(12/03 9:18 AM EDT) [...] neuropathy weekly. ?? Refer to PCP and/or Bag Patcher, Vascular Specialist as indicated. ?? Monitor patient [...] as of this encounter Care Teams Senior Branch Manager Relationship Specialty Start Date End Date Abel Pretty MD [address] [place] [address] PCP - General Family Medicine 12/30/23 Garett Holt MD Internal Medicine-Gastroenterology 12/22/12 Ruiz Stokes MD [address] [place] [id number] Internal Medicine-Cardiovascular Disease 07/25/14 Yenny Schwab MD [address] [facility] [address] [place] [address] Internal Medicine-Rheumatology 12/11/16 documented as of this encounter
--- OUTSIDE RECORDS SUMMARY | 2024-07-22 15:56 | XMS_ITS | Encounter Summary ---
Author Organization [place] [address] Care Team Providers Care Alumni Relations Coordinator Name Role Phone Garett Holt MD Unavailable [phone] Ruiz Stokes MD Unavailable [phone] Yenny Schwab MD Unavailable [phone] Abel Pretty MD Primary Care Provider Reason for Visit * Reason Onset Date Comments Home Health 03/04/2024 Pt FYI Encounter Details Date Type Department Care Team (Late st Contact Info) Description 03/04/2024 Telephone [facility] [address] [place] [address] Abel Pretty MD [address] [place], [place] [id number] Home Health (Pt FYI) Social History Tobacco Use Types Packs/Day Years [...] Date Recorded PHQ-2 Total Score 0 01/03/2024 [facility] ional [facility] - [...] encounter Miscellaneous Notes * Telephone Encounter - Fide Moffett RMA - 03/04/2024 3:21 PM EDT Left message informing HH. * Telephone Encounter - Abel Pretty MD - 03/04/2024 1:31 PM EDT Yes, patient is established with cardiology, can follow-up with her healthcare economics consultant for evaluation. * Telephone Encounter - Guera Strickland - 03/04/2024 12:33 PM EDT Select the most appropriate reason for this telephone message: Other Who is calling (name & relationship to patient if not the patient): [facility] What is needed OR why are they calling: Pt will be discharged 03-04. Pt is still having edema issues in upper & lower extremities. Home health is asking if PCP recommends a referral to healthcare economics consultant to address these issues. When is this needed by: 03-04 Where does this information need to go: Dr. Pretty Additional information: Please advise. documented in this encounter Plan of Treatment Upcoming Encounters Date Type Department Care Team (Late st Contact Info) Description 07/29/2024 9:00 AM EST Appointment [facility] [address] [place] [id number] Jomar Kim MD [address] [place] [address] documented as of this encounter Goals Goal Patient Goal Type Associated Problems Recent Progress Patient-Stated? Author Blood Pressure < 140/90 Blood Pressure 110/72(04/09 2:44 PM EDT) No Rachel Rogers RMA BMI (Calculated) < 30 General 50.9(2023 2:44 PM EDT) No Rachel Rogers RMA Eat better, exercise, reach an ideal body weight General No Ni Clinton, fur designer Healing General On track(12/03 9:18 AM EDT) [...] neuropathy weekly. ?? Refer to PCP and/or Instrument Shop Supervisor, Vascular Specialist as indicated. ?? Monitor patient [...] documented as of this encounter Care Teams Alumni Relations Coordinator Relationship Specialty Start Date End Date Abel Pretty MD [address] [place] [address] PCP - General Family Medicine 12/30/23 Garett Holt MD Internal Medicine-Gastroenterology 12/22/12 Ruiz Stokes MD [address] [place] [address] Internal Medicine-Cardiovascular Disease 07/25/14 Yenny Schwab MD [address] [address] Internal Medicine-Rheumatology 12/11/16 documented as of this encounter
--- OUTSIDE RECORDS SUMMARY | 2024-07-22 15:56 | XMS_ITS | Encounter Summary ---
Author Organization [place] [address] Care Team Providers Care Copyholder Name Role Phone Gartet Holt MD Unavailable [phone] Ruiz Stokes MD Unavailable [phone] Yenny Schwab MD Unavailable [phone] Abel Pretty MD Primary Care Provider Reason for Visit * Reason Comments Medication Refill Encounter Details Date Type Department Care Team (Late st Contact Info) Description 02/20/2024 Refill [facility] [address] [place] [address] Cristiane Shirley MD [address] [place] [address] Medication Refill Social History Tobacco Use Types [...] Date Recorded PHQ-2 Total Score 0 01/03/2024 [facility] - Occupational Stress Questionnaire Answer Date [...] Refills Last Filled Start Date End Date atorvastatin (LIPITOR) 20 mg Oral Tablet Take 1 tablet by mouth once daily 90 Tablet 3 02/23/2024 documented in this encounter Miscellaneous Notes * Telephone Encounter - Saba Pendleton CPhT - 02/23/2024 10:04 AM EDT atorvastatin- Medication Refill Protocol passed. Vivek Action: Approved 90 day supply with sufficient refills to noted follow-up date by provider or protocol if no follow-up date noted, not to exceed 90 days past that date. No diagnosis code associated with Rx LV - 12/15/2023 using Type 2 diabetes mellitus for uncoded statin FV - None Future F/U - 12/09/2024 documented in this encounter Plan of Treatment Upcoming Encounters Date Type Department Care Team (Late st Contact Info) Description 07/29/2024 9:00 AM EST Appointment [facility] [address] [place] [address] Jomar Kim MD [address] [...] neuropathy weekly. ?? Refer to PCP and/or Technologies Division Chair, Vascular Specialist as indicated. ?? Monitor patient [...] Discontinue Reason Start Date End Da te atorvastatin (LIPITOR) 20 mg Oral Tablet Take 1 Tablet by mouth daily. 05/27/2023 02/23/2024 documented as of this encounter Additional Health Concerns Assessment Noted Time A fall risk assessment has been complete d for the patient 11/08/2023 9:11 AM EST documented as of this encounter Care Teams Copyholder Relationship Specialty Start Date End Date Abel Pretty MD [address] [place] [address] PCP - General Family Medicine 12/30/23 Garett Holt MD Internal Medicine-Gastroenterology 12/22/12 Ruiz Stokes MD [address] [place] [address] Internal Medicine-Cardiovascular Disease 07/25/14 Yenny Schwab MD 651 [facility] [address] [place] [address] Internal Medicine-Rheumatology 12/11/16 documented as of this encounter
--- OUTSIDE RECORDS SUMMARY | 2024-07-22 15:56 | XMS_ITS | Encounter Summary ---
Author Organization [place] [address] Care Team Providers Care Stratigraphy Teacher Name Role Phone Garett Holt MD Unavailable [phone] Ruiz Stkoes MD Unavailable [phone] Yenny Schwab MD Unavailable [phone] Abel Pretty MD Primary Care Provider Reason for Referral * Vascular Imaging (Emergency) - Closed Specialty Diagnoses / Procedures Referred By Contalissa t Referred To Contact Radiology Diagnoses Bilateral leg edema Procedures [facility] LOWER EXTREMITY VENOUS BILATERAL Brianda Laird MD [address] [place] [address] [place] [address] Phone: tel: fax: [facility] [place] [address] Phone: tel: fax: Referral ID Status Reason Start Date Expiration Date Visits Re quested Visits Authorized [id number] Closed 03/28/2024 03/28/2026 1 1 Reason for Visit * Reason Comments Leg Swelling Son states legs are swollen worse after having a medication change 2 months ago also wants toe checked on right foot Encounter Details Date Type Department Care Team (Late st Contact Info) Description 03/27/2024 9:20 PM EDT - 03/28/2024 1:14 AM EDT Emergency [facility] [address] [place] [address] Brianda Laird MD [address] [facility] [place] [address] Bilateral leg edema (Primary Dx) Discharge Disposition: Home or Self Care Social [...] Date Recorded PHQ-2 Total Score 0 01/03/2024 [facility] - Occupational Stress [...] Sign Reading Time Taken Comments Blood Pressure 132/54 03/28/2024 12:30 AM EDT Pulse 72 03/27/2024 9:27 PM EDT Temperature 36.7 ??C (98.1 ??F) 03/27/2024 9:27 PM ED T Respiratory Rate 20 03/27/2024 9:27 PM EDT Oxygen Saturation 97% 03/28/2024 12:30 AM EDT Inhaled Oxygen Concentration - - Weight 122.5 kg (270 lb) 03/27/2024 9:27 PM EDT Height 154.9 cm (5' 1 ) 03/27/2024 9:27 PM EDT Body Mass Index 51.02 03/27/2024 9:27 PM EDT documented in this encounter Functional [...] Rodolfo Skelton MA documented in this encounter Discharge Instructions * Discharge Instructions* Brianda Laird MD - 03/28/2024 12:18 AM EDT Doppler studies tomorrow at [place]. You should be called If not called please call central scheduling if no one answers please call the emergency [phone]. They must be done in the morning. * Attachments The following attachments cannot be sent through Care Everywhere. * Swelling (Marshallese) documented in this encounter Medications at Time [...] 90 Tablet 3 02/23/2024 Blood Sugar Diagnostic Mis StripIndications: Type 2 diabetes mellitus without complication, without long-term current use of insulin (HCC) 1 Strip by [facility].(Non-Drug; Combo Route) route 2 times daily. Per formulary. Dx: E11.9 100 Each 11 08/05/2022 Blood-Glucose Meter [facility] KitIndications:Ty pe 2 diabetes mellitus without complication, without long-term current use of insulin (HCC) Per formulary. Dx. E11.9 1 Kit 08/05/2022 Blood-Glucose Meter,Continuous (DEXCOM G7 CROP DUSTER HELPER) [facility] MiscIndications:T ype 2 diabetes mellitus without complication, without long-term current use of insulin (HCC),Severe diabetic hypoglycemia (HCC) 1 Each by [facility].(Non-Drug; Combo Route) route as needed. 1 Each 11 06/27/2023 Blood-Glucose Sensor (DEXCOM G7 SENSOR) [facility] DeviceIndications :Type 2 diabetes mellitus without complication, without long-term current use of insulin (HCC),Severe diabetic hypoglycemia (HCC) 1 Each by [facility].(Non-Drug; Combo Route) route as needed. 1 Each 11 06/27/2023 CALCIUM ORAL Take 1 Tab by [...] 10/28/2023 fluticasone propionate (FLONASE) 50 mcg/actuation Nasl Austin, SuspensionIndicat ions:ETD (Eustachian tube dysfunction), right Use 1 spray(s) in each nostril once daily 16 g 10/17/2022 glipiZIDE (GLUCOTROL) 5 mg Oral TabletIndications :Type 2 diabetes mellitus without complication, without long-term current use of insulin (HCC) Take 1 tablet by mouth once daily 90 Tablet 1 03/09/2024 hydroCHLOROthiazi de 25 mg Oral Tablet Take 50 mg by mouth daily. 12/15/2023 Lancets [facility] MiscIndications:T ype 2 diabetes mellitus without complication, without long-term current use of insulin (HCC) 1 Each by [facility].(Non-Drug; Combo Route) route 2 times [...] once daily 30 Tablet 11/17/2023 Nebulizer Accessories [facility] KitIndications:Ac kamila bronchitis, unspecified organism Nebulizer accessories 1 Kit [...] 07/19/2023 ONETOUCH DELICA PLUS LANCET 33 gauge [facility] USE TO CHECK GLUCOSE TWICE DAILY 11/08/2022 oxybutynin (DITROPAN-XL) 10 mg Oral Tablet Extended Rel 24 hr Take 1 Tablet by mouth daily. 90 Tablet 2 12/06/2021 spironolactone (ALDACTONE) 25 mg Oral Tablet Take 1 tablet by mouth once daily 90 Tablet 2 11/24/2023 tiZANidine (ZANAFLEX) 4 mg Oral TabletIndications :Muscle spasm Take 1 Tablet by mouth 3 times daily as needed. 30 Tablet 01/10/2023 trospium (SANCTURA) 20 mg Oral TabletIndications :Urinary frequency,OAB (overactive bladder) Take 1 Tablet by mouth 2 times daily. 60 Tablet 5 06/09/2023 pantoprazole (PROTONIX) 40 mg Oral Tablet, Delayed Release (E.C.) Take 1 Tablet by mouth daily. 90 Tablet 2 12/15/2023 4 documented as of this encounter Discharge Disposition Disposition Code Departure Means Destination Comment s Home or Self Senior Care documented in this encounter ED Notes * Brianda Laird MD - 03/27/2024 9:11 PM EDT CHIEF COMPLAINT Chief Complaint Patient presents with Leg Swelling Son states legs are swollen worse after having a medication change 2 months ago also wants toe checked on right foot HPI Alyssa Jamil is a 68 y.o. female who presents for evaluation of lower extremity swelling. The patient had a decrease in her diuretics and son states they decreased the dosing 2 months ago. Prior charts were reviewed. Patient apparently has a history of clotting disorder there is concern of possible blood clot. She is also concerned about possible cellulitis. She occasionally will have wounds that are oozing but none now. Patient does have a history of diabetes hypertension hyperlipidemia, fibromyalgia, ankle swelling. Patient last saw primary care 01/03/2024 with lower extremity swelling leftgreater than right. She has no chest pain or shortness of breath. No nausea or vomiting. No abdomina l pain. No other complaints. REVIEW OF SYSTEMS See HPI for further details. Review of systems otherwise negative. PAST MEDICAL HISTORY Past Medical History: Diagnosis Date Anemia on iron Ankle swelling Arthritis all over Asthma Cancer (HCC) OVARIAN Clotting disorder (HCC) Diabetes mellitus (HCC) 2013 borderline, type 2 Fibromyalgia Heartburn nausea after eating Hiatal hernia Hyperlipidemia Hypertension Neuromuscular disorder (HCC) fatty tissue muscle left arm Other and unspecified angina pectoris Shortness of breath Sleep apnea SHOULD WEAR CPAP OR BIPAP PER PATIENT Ulcer FAMILY HISTORY Family History Problem Relation Age of Onset Heart Disease Father Cataracts Father Diabetes Father Cancer Maternal Grandmother Colon Cancer Maternal Grandmother Anesth Problems Neg Hx SOCIAL HISTORY Social History Socioeconomic History Marital status: Spouse name: None Number of children: 2 Years of education: None Highest education level: None Occupational History Occupation: disabled Tobacco Use Smoking status: Former Current packs/day: 0.00 Average packs/day: 1.5 packs/day for 13.0 years (19.5 ttl pk-yrs) Types: Cigarettes Start date: 09/08/1971 Quit date: 09/07/1984 Years since quittin.5 Passive exposure: Current Smokeless tobacco: Never Vaping Use Vaping status: Never Used Substance and Sexual Activity Alcohol use: No Alcohol/week: 0.0 oz Drug use: No Sexual activity: Not Currently Partners: Male control/protection: Post-menopausal Social Determinants of Health Financial Resource Strain: Low Risk (02/07/2021) Overall Financial Resource Strain (CARDIA) Difficulty of Paying Living Expenses: Not very hard Food Insecurity: No Food Insecurity (02/07/2021) Hunger Vital Sign Worried About Running Out of Food in the Last Year: Never true Ran Out of Food in the Last Year: Never true Transportation Needs: Unmet Transportation Needs (02/07/2021) PRAPARE - Transportation Lack of Transportation (Medical): Yes Lack of Transportation (Non-Medical): Yes Physical Activity: Insufficiently Active (02/07/2021) Exercise Vital Sign Days of Exercise per Week: 3 days Minutes of Exercise per Session: 20 min Stress: No Stress Concern Present (02/07/2021) [facility] - Occupational Stress Questionnaire Feeling of Stress : Only a little Received from [facility] Family and Community Support Received from [facility] Abuse Screen Received from [facility] Housing Stability SURGICAL HISTORY Past Surgical History: Procedure Laterality Date ARTERY BIOPSY Right 01/06/2017 RIGHT TEMPORAL ARTERY BIOPSY ; Surgeon: Christa Chavez MD; Location: [facility]; Service: General CARDIAC CATHETERIZATION 04/2015 CHOLECYSTECTOMY 1990 COLONOSCOPY COLONOSCOPY 02/17/2013 Surgeon: Garett Holt MD; Location: [facility]; Service: DENTAL SURGERY upper and lower teeth removed UPPER GASTROINTESTINAL ENDOSCOPY UPPER GASTROINTESTINAL ENDOSCOPY 02/17/2013 Surgeon: Garett Holt MD; Location: [facility]; Service: UPPER GASTROINTESTINAL ENDOSCOPY N/A 07/26/2020 ESOPHAGOGASTRODUODENOSCOPY with biopsy; Surgeon: Jomar Kim MD; Location: [facility]; Service: Endoscopy VENTRAL HERNIA REPAIR N/A 04/18/2020 DAVINCI ROBOTIC VENTRAL HERNIA REPAIR WITH MESH ; Surgeon: Regan Butts MD; Location: [facility]; Service: General CURRENT MEDICATIONS No current facility-administered medications for this encounter. Current Outpatient Medications: albuterol (PROVENTIL HFA;VENTOLIN HFA) 90 mcg/actuation Inhl HFA Aerosol Inhaler, Inhale 2 Puffs into the lungs every 4 hours as needed for Wheezing., Disp: 1 Each, Rfl: 2 albuterol (PROVENTIL) 2.5 mg /3 mL (0.083 %) Inhl Solution for Nebulization, Take 3 mL by nebulization every 4 hours as needed for Wheezing., Disp: 1 box, Rfl: 6 aspirin 81 mg Oral Tablet, Delayed Release (E.C.), Take 1 Tablet by mouth daily., Disp: 90 Tablet, Rfl: 2 atorvastatin (LIPITOR) 20 mg Oral Tablet, Take 1 tablet by mouth once daily, Disp: 90 Tablet, Rfl: 3 Blood Sugar Diagnostic Misc Strip, 1 Strip by Misc.(Non-Drug; Combo Route) route 2 times daily. Performulary. Dx: E11.9, Disp: 100 Each, Rfl: 11 Blood-Glucose Meter Misc Kit, Per formulary. Dx. E11.9, Disp: 1 Kit, Rfl: 0 Blood-Glucose Meter,Continuous (DEXCOM G7 CROP DUSTER HELPER) Misc Misc, 1 Each by Misc.(Non-Drug; Combo Route) route as needed., Disp: 1 Each, Rfl: 11 Blood-Glucose Sensor (DEXCOM G7 SENSOR) Misc Device, 1 Each by Misc.(Non-Drug; Combo Route) route as needed., Disp: 1 Each, Rfl: 11 CALCIUM ORAL, Take 1 Tab by mouth daily., Disp: , Rfl: cholecalciferol, vitamin D3, (VITAMIN D3) 25 mcg (1,000 unit) Oral Tablet, Take 1 Tab by mouth daily., Disp: 30 Tab, Rfl: 11 dapagliflozin propanediol (FARXIGA) 10 mg Oral Tablet, Take 1 Tablet by mouth daily., Disp: 30 Tablet, Rfl: 2 docusate sodium (COLACE) 100 mg Oral Capsule, Take 1 Capsule by mouth 2 times daily., Disp: 60 Capsule, Rfl: 2 empagliflozin (JARDIANCE) 10 mg Oral Tablet, Take 1 Tablet by mouth daily., Disp: 21 Tablet, Rfl: 0 fluticasone propionate (FLONASE) 50 mcg/actuation Nasl Austin, Suspension, Use 1 spray(s) in each nostril once daily, Disp: 16 g, Rfl: 0 fUROsemide (LASIX) 40 mg Oral Tablet, One tab twice a day as needed., Disp: 60 Tablet, Rfl: 2 glipiZIDE (GLUCOTROL) 5 mg Oral Tablet, Take 1 tablet by mouth once daily, Disp: 90 Tablet, Rfl: 1 hydroCHLOROthiazide 25 mg Oral Tablet, Take 50 mg by mouth daily., Disp: , Rfl: hydroCHLOROthiazide 50 mg Oral Tablet, Take 1 Tablet by mouth daily., Disp: 30 Tablet, Rfl: 2 Lancets [facility], 1 Each by [facility].(Non-Drug; Combo Route) route 2 times daily. Per formulary. Dx: E11.9, Disp: 100 Each, Rfl: 11 lisinopriL (PRINIVIL;ZESTRIL) 10 mg Oral Tablet, Take 1 tablet by mouth once daily, Disp: 90 Tablet, Rfl: 1 loratadine (CLARITIN) 10 mg Oral Tablet, Take 1 tablet by mouth once daily, Disp: 63 Tablet, Rfl: 0 meloxicam (MOBIC) 15 mg Oral Tablet, Take 1 tablet by mouth once daily, Disp: 30 Tablet, Rfl: 0 Nebulizer Accessories [facility] Kit, Nebulizer accessories, Disp: 1 Kit, Rfl: 0 olopatadine (PATANOL) 0.1 % Opht Drops, Place 1 Drop into both eyes 2 times daily. Administer dropsin both eyes., Disp: 5 mL, Rfl: 0 ondansetron (ZOFRAN-ODT) 4 mg Oral Tablet, Rapid Dissolve, Take 1 Tablet by mouth every 8 hours as needed for Nausea., Disp: 15 Tablet, Rfl: 0 ONETOUCH DELICA PLUS LANCET 33 gauge [facility], USE TO CHECK GLUCOSE TWICE DAILY, Disp: , Rfl: oxybutynin (DITROPAN-XL) 10 mg Oral Tablet Extended Rel 24 hr, Take 1 Tablet by mouth daily., Disp:90 Tablet, Rfl: 2 pantoprazole (PROTONIX) 40 mg Oral Tablet, Delayed Release (E.C.), Take 1 Tablet by mouth daily., Disp: 90 Tablet, Rfl: 2 spironolactone (ALDACTONE) 25 mg Oral Tablet, Take 1 tablet by mouth once daily, Disp: 90 Tablet, Rfl: 2 tiZANidine (ZANAFLEX) 4 mg Oral Tablet, Take 1 Tablet by mouth 3 times daily as needed., Disp: 30 Tablet, Rfl: 0 trospium (SANCTURA) 20 mg Oral Tablet, Take 1 Tablet by mouth 2 times daily., Disp: 60 Tablet, Rfl:5 ALLERGIES Allergies Allergen Reactions Spironolactone Nausea And Vomiting and Myalgia Amitriptyline Nausea And Vomiting Amoxil [Amoxicillin] Hives Clarithromycin hives Clindamycin Nausea Only Egg Nausea Only Naproxen Rash Nexium [Esomeprazole Magnesium] Hives and Rash Blisters in Mouth PHYSICAL EXAM VITAL SIGNS: BP 106/55 Pulse 72 Temp 98.1 ??F (36.7 ??C) Resp 20 Ht 5' 1 (1.549 m) Wt 270 lb (122.5 kg) SpO2 99% BMI 51.02 kg/m?? Constitutional: Well developed, Well nourished, No acute distress, Non-toxic appearance. HENT: Nose clear, oropharynx clear, mucous membranes moist Eyes: Pupils equal round and reactive to light extraocular movements are intact Neck: Normal range of motion, No tenderness, Supple, No stridor. Cardiovascular: Normal heart rate, Normal rhythm, No murmurs, Thorax & Lungs: Normal breath sounds, No respiratory distress, No wheezing Abdomen: Bowel sounds normal, Soft, No tenderness, No masses Skin: Warm, Dry, No erythema, No rash. Extremities: Intact distal pulses, bilateral lower extremity edema left greater than right, tenderness to palpation third toe on the right no erythema or warmth of the lower extremities no contusionsnoted. Neurologic: Cranial nerves intact, sensation intact, strength 5 out of 5, alert and oriented ??3 RADIOLOGY/PROCEDURES Results for orders placed or performed during the hospital encounter of 03/27/24 XR FOOT RIGHT AP LATERAL AND OBLIQUE Narrative CLINICAL HISTORY: -middle toe and great toe pain. COMPARISON: 11/09/2023. TECHNIQUE: XR FOOT RIGHT AP LATERAL AND OBLIQUE on 03/27/2024 11:22 PM FINDINGS: The patient is osteopenic. There is no acute fracture or dislocation. Irregularity of the lateral malleolus is chronic. Degenerative changes are noted. The soft tissues are unremarkable. Impression No acute findings. Note: Radiology results need to be interpreted within a comprehensive clinical context. If you have questions about the radiology report, please contact the office of the ordering clinician. XR HIP LEFT AP LATERAL W AP PELVIS Narrative CLINICAL HISTORY: -left hip pain. COMPARISON: 07/05/2023. TECHNIQUE: XR HIP LEFT AP LATERAL W AP PELVIS on 03/27/2024 11:21 PM. FINDINGS: The patient is osteopenic. There is no acute fracture or dislocation. Degenerative changes are noted. The soft tissues are unremarkable. Impression No acute findings. Note: Radiology results need to be interpreted within a comprehensive clinical context. If you have questions about the radiology report, please contact the office of the ordering clinician. CBC Result Value Ref Range WBC 10.4 (H) 3.7 - 10.3 x10(3)/mcL RBC 3.92 3.90 - 5.20 x10(6)/mcL Hgb 10.9 (L) 11.2 - 15.7 g/dL Hct 35.8 34.0 - 45.0 % MCV 91.3 80.0 - 100.0 fL MCH 27.8 26.0 - 34.0 pg MCHC 30.4 (L) 30.7 - 35.5 g/dL RDW 13.9 <=14.9 % Platelet 266 155 - 369 x10(3)/mcL MPV 9.3 8.8 - 12.5 fL BASIC METABOLIC PANEL Result Value Ref Range Sodium 138 136 - 145 mmol/L Potassium 3.4 (L) 3.5 - 5.0 mmol/L Chloride 97 (L) 98 - 107 mmol/L Total CO2 28 22 - 29 mmol/L Anion Gap 13 7 - 16 mmol/L Calcium 10.3 8.8 - 10.4 mg/dL Glucose Lvl 125 (H) 70 - 99 mg/dL BUN 24 (H) 8 - 23 mg/dL Creatinine 0.91 0.51 - 1.30 mg/dL eGFR (CKD-EPIcr 2020) 69 >=60 mL/min/1.73 m2 NT PROBNP Result Value Ref Range NT Pro-BNP <36 <=353 pg/mL Narrative An NT pro-BNP level less than 300 pg/mL in any patient, regardless of age, effectively rules out acute CHF with a 99% negative predictive value. Ingestion of min doses of biotin (>5 mg/day) taken within 8 hours of drawing blood sample can interfere with this immunoassay test. D-DIMER Result Value Ref Range D-Dimer 1,099 (H) <=500 ng/mL FEU Narrative For patients between the ages of 50 - 75, an age-adjusted D-Dimer cut-off in combination with non-high clinical probability may be considered for the exclusion of venous thromboembolism (calculation = age x 10). KALE Lucia, et al. Faye [employer] Med. 2017;166(5):361-363 FERNANDO Hendrix, et al. [facility] [employer] [facility]. 2015;(163):701-711. Petra M, et al. SHIVA. 2014;(11):7223-4888. UA W/REFLEX TO CULTURE Specimen: Urine, Clean Catch Narrative The following orders were created for panel order UA W/REFLEX TO CULTURE. Procedure Abnormality Status --------- ------ URINALYSIS REFLEX[[id number]] Abnormal Final result EXTRA LAND URINE CX[[id number]] Final result Please view results for these tests on the individual orders. URINALYSIS REFLEX Result Value Ref Range UA Color Yellow UA Appear Clear Clear UA Glucose Negative Negative mg/dL UA Ketones Negative Negative mg/dL UA Blood Small (A) Negative UA pH 6.0 5.0 - 8.0 pH UA Protein Negative Negative mg/dL UA Urobilinogen 0.2 <=1 mg/dL UA Bili Negative Negative UA Nitrite Negative Negative UA Leuk Est Negative Negative UA Spec Grav 1.025 1.001 - 1.035 no units UA WBC 2 0 - 4 /HPF UA RBC 2 0 - 3 /HPF UA Squam Epi 1+ /LPF UA Bacteria Negative Negative /HPF MEDICAL DECISION MAKING: Alyssa Jamil is a 68 y.o. female who presents with lower extremity swelling and pain. Differentialincludes cellulitis, DVT, fracture, CHF. The patient's beta nitric peptide with no normal limits. Lungs are clear. She is not hypoxic making CHF unlikely. Patient has no erythema or warmth with minimal leukocytosis and no fever so unlikely to be cellulitis at this time. The patient did have a contusion on the third toe on the right so x-ray was done along with an x-ray of the hip which showed no acute fracture. Patient does have chronic pain which could be contributing to the burning and pain that she is complaining of. She did though have an elevated D-dimer so will require additional studies to rule out DVT. I discussed this with her and her son. Son states that he will be able to get herto have Doppler studies done in the a.m. when they are available at [place]. She will be given Lovenox tonight. She will also be given 1 tramadol for pain. She is to follow-up with primary care return if worse. They are agreeable to this plan discharged in stable condition. IMPRESSION: 1. Bilateral leg edema Condition at Discharge/Transfer from Department: Stable In cases where narcotics are prescribed, MARIZA report was obtained, reviewed, and made part of record. After examining available information, and risks of prescribing or dispensing controlled substances was explained to the patient (including non-treatment or other treatment), it is considered medically appropriate to administer narcotics as prescribed. This chart was completed using voice recognition technology and may contain unintended errors Brianda Laird MD 03/28/24 0023 documented in this encounter Plan of Treatment Upcoming Encounters Date Type Department Care Team (Late st Contact Info) Description 07/29/2024 9:00 AM EST Appointment [facility] [address] [place] [address] Jomar Kim MD [address] [place] [address] documented as of this encounter Goals Goal Patient Goal Type Associated Problems Recent Progress Patient-Stated? Author Blood Pressure < 140/90 Blood Pressure 110/72(04/09 2:44 PM EDT) No Rachel Rogers RMA BMI (Calculated) < 30 General 50.9(2023 2:44 PM EDT) No Rachel Rogers RMA Eat better, exercise, reach an ideal body weight General No Ni Clinton, youth support worker Healing General On track(12/03 9:18 AM EDT) [...] neuropathy weekly. ?? Refer to PCP and/or Programmer Analyst [facility], Vascular Specialist as indicated. ?? Monitor patient [...] Procedure Name Priority Date/Time Associated Diagnosis Comments XR FOOT RIGHT AP LATERAL AND OBLIQUE JORGE LUIS 03/27/2024 11:22 PM EDT XR HIP LEFT AP LATERAL W AP PELVIS JORGE LUIS 03/27/2024 11:21 PM EDT CBC STAT 03/27/2024 10:24 PM EDT D-DIMER STAT 03/27/2024 10:24 PM EDT NT PROBNP STAT 03/27/2024 10:24 PM EDT BASIC METABOLIC PANEL STAT 03/27/2024 10:24 PM EDT URINALYSIS REFLEX STAT 03/27/2024 10: 13 PM EDT UA W/REFLEX TO CULTURE STAT 03/27/2024 10:13 PM EDT EXTRA LAND URINE CX STAT 03/27/2024 1 0:13 PM EDT documented in this encounter Results * [facility] LOWER EXTREMITY VENOUS BILATERAL (03/28/2024 1:51 PM EDT) Anatomical Region Laterality Modality Vascular, Leg Vascular Imaging 03/28/2024 1:13 PM EDT Impressions 03/29/2024 7:05 AM EDT Patient Info Name: ? Alyssa Jamil Age: ? 68 years : ? 1955 Gender: ? Female Accession #: ? [id number] Ht: ? 61 in Wt: ? 270 lbs BSA: ? 2.38 m2 Exam Date: ? 03/28/2024 1:13 PM Patient Status: ? OUTPATIENT Exam Location: ? [facility] Exam Type: ? [facility] LOWER EXTREMITY VENOUS BILATERAL Study Info Indications ?Localized edema - Venous duplex imaging was performed in both lower extremities. The following venous structures were evaluated: common femoral vein, profundal vein, the greater saphenous vein, superficial femoral vein and the popliteal vein. In addition, the posterior tibial and peroneal veins were evaluated. Serial compression and augmentation maneuvers were performed. Staff Referring Physician: ? Brianda Laird Ordering Physician: ? Brianda Laird V Groove Cutter: ? Awilda Loja RVT Cardiovascular History/Risk Factors Hypertension: ? Yes Hyperlipidemia: ? Yes Obesity: ? Yes Diabetes Mellitus: ? Yes Tobacco Use: ? Former Left Lower Extremity Findings ??There is a left lower extremity Lee's cyst noted measuring 1.1 cm x 2.1 cm x 3.0 cm. Narrative Procedure Note Marcelo Menjivar MD - 03/29/2024 IMPRESSION Patient Info Name: Alyssa Jamil Age: 68 years : 1955 Gender: Female Ht: 61 in Wt: 270 lbs BSA: 2.38 m2 Exam Date: 03/28/2024 1:13 PM Patient Status: OUTPATIENT Exam Location: [facility] Exam Type: [facility] LOWER EXTREMITY VENOUS BILATERAL Study Info Indications Localized edema - Venous duplex imaging was performed in both lower extremities. Thefollowing venous structures were evaluated: common femoral vein, profundal vein,the greater saphenous vein, superficial femoral vein and the popliteal vein.In addition, the posterior tibial and peroneal veins were evaluated. Serial compression and augmentation maneuvers were performed. Staff Referring Physician: Brianda Laird Ordering Physician: Brianda Laird V Groove Cutter: Awilda Loja RVT Cardiovascular History/Risk Factors Hypertension: Yes Hyperlipidemia: Yes Obesity: Yes Diabetes Mellitus: Yes Tobacco Use: Former Left Lower Extremity Findings There is a left lower extremity Lee's cyst noted measuring 1.1 cm x2.1 cm x 3.0 cm. Brianda Laird MD IMG VASCULAR ORDERABLES Fin al Result * XR FOOT RIGHT AP LATERAL AND OBLIQUE (03/27/2024 11:22 PM EDT) Anatomical Region Laterality Modality Foot Radiographic Faby ging 03/27/2024 11:2 2 PM EDT Impressions 03/27/2024 11:31 PM EDT No acute findings. Note: Radiology results need to be interpreted within a comprehensive clinical context. ??If you have questions about the radiology report, please contact the office of the ordering clinician. Narrative 03/27/2024 11:31 PM EDT CLINICAL HISTORY: -middle toe and great toe pain. COMPARISON: 11/09/2023. TECHNIQUE: XR FOOT RIGHT AP LATERAL AND OBLIQUE on 03/27/2024 11:22 PM FINDINGS: The patient is osteopenic. There is no acute fracture or dislocation. Irregularity of the lateral malleolus is chronic. Degenerative changes are noted. The soft tissues are unremarkable. Procedure Note Rob Gutiérrez MD - 03/27/2024 CLINICAL HISTORY: -middle toe and great toe pain. COMPARISON: 11/09/2023. TECHNIQUE: XR FOOT RIGHT AP LATERAL AND OBLIQUE on 03/27/2024 11:22 PM FINDINGS: The patient is osteopenic. There is no acute fracture ordislocation. Irregularity of the lateral malleolus is chronic. Degenerative changesare noted. The soft tissues are unremarkable. IMPRESSION: No acute findings. Note: Radiology results need to be interpreted within a comprehensiveclinical context. If you have questions about the radiology report, please contactthe office of the ordering clinician. Brianda Laird MD [facility] Final Result * XR HIP LEFT AP LATERAL W AP PELVIS (03/27/2024 11:21 PM EDT) Anatomical Region Laterality Modality Hip Radiographic Faby ging 03/27/2024 11:2 1 PM EDT Impressions 03/27/2024 11:31 PM EDT No acute findings. Note: Radiology results need to be interpreted within a comprehensive clinical context. ??If you have questions about the radiology report, please contact the office of the ordering clinician. Narrative 03/27/2024 11:31 PM EDT CLINICAL HISTORY: -left hip pain. COMPARISON: 07/05/2023. TECHNIQUE: XR HIP LEFT AP LATERAL W AP PELVIS on 03/27/2024 11:21 PM. FINDINGS: The patient is osteopenic. There is no acute fracture or dislocation. Degenerative changes are noted. The soft tissues are unremarkable. Procedure Note Rob Gutiérrez MD - 03/27/2024 CLINICAL HISTORY: -left hip pain. COMPARISON: 07/05/2023. TECHNIQUE: XR HIP LEFT AP LATERAL W AP PELVIS on 03/27/2024 11:21 PM. FINDINGS: The patient is osteopenic. There is no acute fracture ordislocation. Degenerative changes are noted. The soft tissues are unremarkable. IMPRESSION: No acute findings. Note: Radiology results need to be interpreted within a comprehensiveclinical context. If you have questions about the radiology report, please contactthe office of the ordering clinician. us Brianda Laird MD [facility] Final Result * (ABNORMAL) D-DIMER (03/27/2024 10:24 PM EDT) D-Dimer 1,099(H) <=500 ng/mL FEU 03/27/2024 10:42 PM EDT [facility] Comment:This is an automated latex enhanced immunoassay for the quantitative determination of D-Dimer that may be used, in conjunction with a clinical pretest probability assessment, to exclude venous thromboembolism in patients suspected of deep venous thrombosis (DVT) and pulmonary embolism (PE). The cutoff for exclusion of DVT and PE is 500 ng/mL Fibrinogen Equivalent Units (FEU). Elevated D-Dimer levels may be associated with PE, DVT, disseminated intravascular coagulation, recent surgery, recent bleeding, , malignancy, and inflammation. Blood VENOUS BLOOD / Unknown Venipuncture / Unknown 03/27/2024 10:24 PM EDT 03/27/2024 10:28 PM EDT Narrative [facility] - 03/27/2024 10:42 PM EDT For patients between the ages of 50 - 75, an age-adjusted D-Dimer cut-off in combination with non-high clinical probability may be considered for the exclusion of venous thromboembolism (calculation = age x 10). KALE Lucia, et al. Faye [employer] Med. 2017;166(5):361-363 FERNANDO Hendrix, et al. [facility] [employer]. 2015;(163):701-711. Petra M, et al. SHIVA. 2014;(11):2270-5296. us Brianda Laird MD HEMATOLOGY ORDERABLES Final Result [facility] [address] [place] [address] * NT PROBNP (03/27/2024 10:24 PM EDT) NT Pro-BNP <36 <=353 pg/mL 03/27/2024 11:11 PM EDT [facility] Blood VENOUS BLOOD / Unknown Venipuncture / Unknown 03/27/2024 10:24 PM EDT 03/27/2024 10:28 PM EDT Narrative [facility] - 03/27/2024 11:11 PM EDT An NT pro-BNP level less than 300 pg/mL in any patient, regardless of age, effectively rules out acute CHF with a 99% negative predictive value. Ingestion of min doses of biotin (>5 mg/day) taken within 8 hours of drawing blood sample can interfere with this immunoassay test. us Brianda Laird MD CHEMISTRY ORDERABLES Final Result [facility] [address] [place] [address] * (ABNORMAL) BASIC METABOLIC PANEL (03/27/2024 10:24 PM EDT) Sodium 138 136 - 145 mmol/L 03/27/2024 10:48 PM EDT [facility] Potassium 3.4(L) 3.5 - 5.0 mmol/L 03/27/2024 10:48 PM EDT [facility] Chloride 97(L) 98 - 107 mmol/L 03/27/2024 10:48 PM EDT [facility] Total CO2 28 22 - 29 mmol/L 03/27/2024 10:48 PM EDT [facility] Anion Gap 13 7 - 16 mmol/L 03/27/2024 10:48 PM EDT [facility] Calcium 10.3 8.8 - 10.4 mg/dL 03/27/2024 10:48 PM EDT [facility] Glucose Lvl 125(H) 70 - 99 mg/dL 03/27/2024 10:48 PM EDT [facility] BUN 24(H) 8 - 23 mg/dL 03/27/2024 10:48 PM EDT [facility] Creatinine 0.91 0.51 - 1.30 mg/dL 03/27/2024 10:48 PM T [facility] eGFR (CKD-EPIcr 2020) 69 >=60 mL/min/1.7 3 m2 03/27/2024 10:48 PM EDT [facility] Comment:Estimated GFR was ca lculated using the CKD-EPIcr (2020) equation refit without race. The equation is recommended by the National Kid[employer] - [place] [employer] Nephrology Task Force. Blood VENOUS BLOOD / Unknown Venipuncture / Unknown 03/27/2024 10:24 PM EDT 03/27/2024 10:28 PM EDT us Brianda Laidr MD CHEMISTRY ORDERABLES Final Result [facility] [address] [place] [address] * (ABNORMAL) CBC (03/27/2024 10:24 PM EDT) WBC 10.4(H) 3.7 - 10.3 x10(3)/mcL 03/27/2024 10:35 PM EDT [facility] RBC 3.92 3.90 - 5.20 x10(6)/mcL 03/27/2024 10:35 PM EDT [facility] Hgb 10.9(L) 11.2 - 15.7 g/dL 03/27/2024 10:35 PM EDT [facility] Hct 35.8 34.0 - 45.0 % 03/27/2024 10:35 PM EDT [facility] MCV 91.3 80.0 - 100.0 fL 03/27/2024 10:35 PM EDT [facility] MCH 27.8 26.0 - 34.0 pg 03/27/2024 10:35 PM EDT [facility] MCHC 30.4(L) 30.7 - 35.5 g/dL 03/27/2024 10:35 PM EDT [facility] RDW 13.9 <=14.9 % 03/27/2024 10:35 PM EDT [facility] Platelet 266 155 - 369 x10(3)/mcL 03/27/2024 10:35 PM EDT [facility] MPV 9.3 8.8 - 12.5 fL 03/27/2024 10:35 PM EDT [facility] Blood VENOUS BLOOD / Unknown Venipuncture / Unknown 03/27/2024 10:24 PM EDT 03/27/2024 10:28 PM EDT us Brianda Laird MD HEMATOLOGY ORDERABLES Final Result [facility] [address] [place] [address] * EXTRA LAND URINE CX (03/27/2024 10:13 PM EDT) Urine URINE SPECIMEN COLLECTION, CLEAN CATCH / Unknown 03/27/2024 10:13 PM EDT 03/27/2024 10:17 PM EDT Brianda Laird MD MICROBIOLOGY - GENERAL TOSHA ARSHAD Final Result [facility] [address] [place] [address] * (ABNORMAL) URINALYSIS REFLEX (03/27/2024 10:13 PM EDT) UA Color Yellow 03/27/2024 10:35 PM EDT [facility] UA Appear Clear Clear 03/27/2024 10:35 PM EDT [facility] UA Glucose Negative Negative mg/dL 03/27/2024 10:35 PM EDT [facility] UA Ketones Negative Negative mg/dL 03/27/2024 10:35 PM EDT [facility] UA Blood Small(A) Negative 03/27/2024 10:35 PM EDT [facility] UA pH 6.0 5.0 - 8.0 pH 03/27/2024 10:35 PM EDT [facility] UA Protein Negative Negative mg/dL 03/27/2024 10:35 PM EDT [facility] UA Urobilinogen 0.2 <=1 mg/dL 10:35 PM EDT [facility] UA Bili Negative Negative 03/27/2024 10:35 PM EDT [facility] UA Nitrite Negative Negative 03/27/2024 10:35 PM EDT [facility] UA Leuk Est Negative Negative 03/27/2024 10:35 PM EDT [facility] UA Spec Grav 1.025 1.001 - 1.035 no units 03/27/2024 10:35 PM EDT [facility] Comment:Reference range dano d for random specimens only. UA WBC 2 0 - 4 /HPF 03/27/2024 10:35 PM EDT [facility] UA RBC 2 0 - 3 /HPF 03/27/2024 10:35 PM EDT [facility] UA Squam Epi 1+ /LPF 03/27/2024 10:35 PM EDT [facility] UA Bacteria Negative Negative /HPF 03/27/2024 10:35 PM EDT [facility] Urine URINE SPECIMEN COLLECTION, CLEAN CATCH / Unknown 03/27/2024 10:13 PM EDT 03/27/2024 10:17 PM EDT us Brianda Laird MD URINE ORDERABLES Final Resu lt [facility] [address] [place] [address] documented in this encounter Visit Diagnoses Diagnosis Bilateral leg edema- Primary Edema Bilateral leg edema Edema documented in this encounter Administered Medications Inactive Administered Medications - up to 1 most recent administrations Medication Order MAR Action Action Date Dose Rate Site acetaminophen (TYLENOL) tablet 650 mg 650 mg, Oral, ONCE, 1 dose, On 03/27/24 at 2200, Maximum adult dose of acetaminophen is 4000 mg from all sources in 24 hours. Given 03/27/2024 10:30 PM EDT 650 mg enoxaparin (LOVENOX) injection 120 mg 120 mg (rounded from 122.5 mg = 1 mg/kg ? 122.5 kg), Subcutaneous, ONCE, 1 dose, On 03/28/24 at 0015 Given 03/28/2024 12:48 AM EDT 120 mg Abdominal Tissue traMADoL (ULTRAM) tablet 50 mg 50 mg, Oral, ONCE, 1 dose, On 03/28/24 at 0015 Given 03/28/2024 12:47 AM EDT 50 mg documented in this encounter Active and Recently Administered Medications Times are shown in EDT. Scheduled Medication Order 03/26/2024 03/27/2024 03/28/2024 acetaminophen (TYLENOL) tablet 650 mg (COMPLETED) 650 mg, Oral, ONCE, 1 dose, On 03/27/24 at 2200, Maximum adult dose of acetaminophen is 4000 mg from all sources in 24 hours. 2230 (Given - Provider: Bijal Phillips RN) enoxaparin (LOVENOX) injection 120 mg (COMPLETED) 120 mg (rounded from 122.5 mg = 1 mg/kg ? 122.5 kg), Subcutaneous, ONCE, 1 dose, On 03/28/24 at 0015 0048 (Given - Provid er: Kimberly Gonzalez, MATT) traMADoL (ULTRAM) tablet 50 mg (COMPLETED) 50 mg, Oral, ONCE, 1 dose, On 03/28/24 at 0015 0047 (Given - Provid er: Kimberly Gonzalez RN) documented in this encounter Additional Health Concerns Assessment Noted Time A fall risk assessment has been complete d for the patient 11/08/2023 9:11 AM EST documented as of this encounter Care Teams Stratigraphy Teacher Relationship Specialty Start Date End Date Abel Pretty MD [address] [place] [address] PCP - General Family Medicine 12/30/23 Garett Holt MD Internal Medicine-Gastroenterology 12/22/12 Ruiz Stokes MD [address] [place] [address] Internal Medicine-Cardiovascular Disease 07/25/14 Yenny Schwab MD [address] [facility] [address] [place] [address] Internal Medicine-Rheumatology 12/11/16 documented as of this encounter
--- OUTSIDE RECORDS SUMMARY | 2024-07-22 15:56 | XMS_ITS | Encounter Summary ---
Author Organization [place] [address] Care Team Providers Care Online Advertising Analyst Name Role Phone Garett Holt MD Unavailable [phone] Ruiz Stokes MD Unavailable [phone] Yenny Schwab MD Unavailable [phone] Abel Pretty MD Primary Care Provider Reason for Referral * Vascular Imaging (Emergency) - Closed Specialty Diagnoses / Procedures Referred By Contalissa t Referred To Contact Radiology Diagnoses Bilateral leg edema Procedures [facility] LOWER EXTREMITY VENOUS BILATERAL Brianda Laird MD [address] [place] [address] [place] [address] Phone: tel: fax: [facility] [place] [address] Phone: tel: fax: Referral ID Status Reason Start Date Expiration Date Visits Re quested Visits Authorized [id number] Closed 03/28/2024 03/28/2026 1 1 Reason for Visit * Vascular Imaging (Emergency) - Closed Specialty Diagnoses / Procedures Referred By Ron bansal Referred To Contact Radiology Diagnoses Bilateral leg edema Procedures [facility] LOWER EXTREMITY VENOUS BILATERAL Brianda Laird MD [address] [facility] [place] [address] Phone: tel: fax: [facility] [address] [place] [address] Phone: tel: fax: Referral ID Status Reason Start Date Expiration Date Visits Re quested Visits Authorized [id number] Closed 03/28/2024 03/28/2026 1 1 Encounter Details Date Type Department Care Team (Latest Contact Info) Description 03/28/2024 12:48 PM EDT - 03/28/2024 11:59 PM EDT Hospital Encounter [facility] [address] [id number] Bilateral leg edema Discharge Disposition: Home or Self Care Social History Tobacco Use Types Packs/Day Years Used Date Smoking Tobacco: Former Cigarettes 1.5 13 0 09/08/1971 - 09/07/1984 Passive Smoke Exposure: Current Smokeless Tobacco: Never Alcohol Use Standard Drinks/Week Comments No 0 (1 standard drink = 0.6 oz pur e alcohol) Overall Financial Resource Strain ([facility]) Answe r Date Recorded How hard is it for you to pa y for the very basics like food, housing, medical care, and heating? Not very hard 02/07/2021 PHQ-2 Answer Date Recorded PHQ-2 Total Score 0 01/03/2024 [facility] [place] of Occupat ional Health - Occupational Stress [...] 90 Tablet 3 02/23/2024 Blood Sugar Diagnostic [facility] StripIndications: Type 2 diabetes mellitus without complication, without long-term current use of insulin (HCC) 1 Strip by [facility].(Non-Drug; Combo Route) route 2 times daily. Per formulary. Dx: E11.9 100 Each 11 08/05/2022 Blood-Glucose Meter [facility] KitIndications:Ty pe 2 diabetes mellitus without complication, without long-term current use of insulin (HCC) Per formulary. Dx. E11.9 1 Kit 08/05/2022 Blood-Glucose Meter,Continuous (DEXCOM G7 COMMUNITY ARTIST) [facility] MiscIndications:T ype 2 diabetes mellitus without complication, without long-term current use of insulin (HCC),Severe diabetic hypoglycemia (HCC) 1 Each by [facility].(Non-Drug; Combo Route) route as needed. 1 Each 11 06/27/2023 Blood-Glucose Sensor (DEXCOM G7 SENSOR) [facility] DeviceIndications :Type 2 diabetes mellitus without complication, without long-term current use of insulin (HCC),Severe diabetic hypoglycemia (HCC) 1 Each by [facility].(Non-Drug; Combo Route) route as needed. 1 Each [...] 10/28/2023 fluticasone propionate (FLONASE) 50 mcg/actuation Nasl [place], SuspensionIndicat ions:ETD (Eustachian tube dysfunction), right Use 1 spray(s) in each nostril once daily 16 g 10/17/2022 glipiZIDE (GLUCOTROL) 5 mg Oral TabletIndications :Type 2 diabetes mellitus without complication, without long-term current use of insulin (HCC) Take 1 tablet by mouth once daily 90 Tablet 1 03/09/2024 hydroCHLOROthiazi de 25 mg Oral Tablet Take 50 mg by mouth daily. 12/15/2023 Lancets [facility] MiscIndications:T ype 2 diabetes mellitus without complication, without long-term current use of insulin ([facility]) 1 Each by [facility].(Non-Drug; Combo Route) route 2 times daily. Per [...] once daily 30 Tablet 11/17/2023 Nebulizer Accessories [facility] KitIndications:Ac kamila bronchitis, unspecified organism Nebulizer accessories [...] AM EST Appointment [facility] [address] [place] [address] Jomar Kim MD [address] [place] [address] documented as of this encounter Goals Goal Patient Goal Type Associated Problems Recent Progress Patient-Stated? Author Blood Pressure < 140/90 Blood Pressure 110/72(04/09 2:44 PM EDT) No Rachel Rogers RMA BMI (Calculated) < 30 General 50.9(2023 2:44 PM EDT) No Rachel Rogers RMA Eat better, exercise, reach an ideal body weight General No Ni Clinton, contracts manager Healing General On track(12/03 9:18 AM EDT) [...] neuropathy weekly. ?? Refer to PCP and/or Slime Plant Operator, Vascular Specialist as indicated. ?? Monitor [...] Procedure Name Priority Date/Time Associated Diagnosis Comments [facility] LOWER EXTREMITY VENOUS BILATERAL STAT 03/28/2024 1:51 PM EDT Bilateral leg edema documented in this encounter Results * [facility] LOWER EXTREMITY VENOUS BILATERAL (03/28/2024 1:51 PM EDT) Anatomical Region Laterality Modality Vascular, Leg Vascular Imaging 03/28/2024 1:13 PM EDT Impressions 03/29/2024 7:05 AM EDT Patient Info Name: ? Alyssa Jamil Age: ? 68 years : ? 1955 Gender: ? Female Accession #: ? [id number] Ht: ? 61 in Wt: ? 270 lbs BSA: ? 2.38 m2 Exam Date: ? 03/28/2024 1:13 PM Patient Status: ? OUTPATIENT Exam Location: ? [facility] Exam Type: ? [facility] LOWER EXTREMITY VENOUS BILATERAL Study Info Indications [...] Brianda Laird Ordering Physician: ? Brianda Laird Fund Controller: ? Awilda Loja RVT Cardiovascular History/Risk Factors [...] Status: OUTPATIENT Exam Location: [facility] Exam Type: [facility] LOWER EXTREMITY VENOUS BILATERAL Study Info Indications [...] Physician: Brianda Laird Ordering Physician: Brianda Laird Fund Controller: Awilda Loja RVT Cardiovascular History/Risk Factors Hypertension: Yes Hyperlipidemia: Yes Obesity: Yes Diabetes Mellitus: Yes Tobacco Use: Former Left Lower Extremity Findings There is a left lower extremity Lee's cyst noted measuring 1.1 cm x2.1 cm x 3.0 cm. us Brianda Laird MD IMG VASCULAR ORDERABLES Fin al Result documented in this encounter Visit Diagnoses Diagnosis Bilateral leg edema Edema documented in this encounter Additional Health Concerns Assessment Noted Time A fall risk assessment has been complete d for the patient 11/08/2023 9:11 AM EST documented as of this encounter Care Teams Online Advertising Analyst Relationship Specialty Start Date End Date Abel Pretty MD [address] [place] [address] PCP - General Family Medicine 12/30/23 Garett Holt MD Internal Medicine-Gastroenterology 12/22/12 Ruiz Stokes MD [address] [place] [address] Internal Medicine-Cardiovascular Disease 07/25/14 Yenny Schwab MD [address] [place] [id number] Internal Medicine-Rheumatology 12/11/16 documented as of this encounter
--- OUTSIDE RECORDS SUMMARY | 2024-07-22 15:56 | XMS_ITS | Encounter Summary ---
Author [place] [address] Care Team Providers Care Financial Reserve Clerk Name Role Phone Garett Holt MD Unavailable [phone] Ruiz Stokes MD Unavailable [phone] Yenny Schwab MD Unavailable [phone] Abel Pretty MD Primary Care Provider Reason for Visit * Reason Onset Date Comments Orders 02/04/2024 verbal Encounter Details Date Type Department Care Team (Late st Contact Info) Description 02/04/2024 Telephone [facility] [address] [place] [address] Abel Pretty MD [address] [place], [place] [id number] Orders (verbal) Social History Tobacco Use Types Packs/Day Years [...] Date Recorded PHQ-2 Total Score 0 01/03/2024 [facility] of Occupat ional Health - Occupational [...] encounter Miscellaneous Notes * Telephone Encounter - Abel Pretty MD - 02/04/2024 1:04 PM EDT Yes, verbal order is fine. * Telephone Encounter - Angela Ocasio - 02/04/2024 11:56 AM EDT Select the most appropriate reason for this telephone message: Order Request Who is requesting the Order(s): Home Health Facility: [facility] (Caller name: Chiquita) What Orders are being requested: Occupational Therapy Reason Orders are Needed (Diagnosis): assessment and eval Is a verbal order being requested: Yes If non-[facility] facility, where should the order be faxed (include fax number): Frequency: n/a Additional Notes:Please advise, thank you documented in this encounter Plan of Treatment Upcoming Encounters Date Type Department Care Team (Late st Contact Info) Description 07/29/2024 9:00 AM EST Appointment [facility] [address] [place], [place] [id number] Jomar Kim MD [address] [place] [address] documented as of this encounter Goals Goal Patient Goal Type Associated Problems Recent Progress Patient-Stated? Author Blood Pressure < 140/90 Blood Pressure 110/72(04/09 2:44 PM EDT) No Rachel Rogers, RMA BMI (Calculated) < 30 General 50.9(2023 2:44 PM EDT) No Rachel Rogers, RMA Eat better, exercise, reach an ideal [...] neuropathy weekly. ?? Refer to PCP and/or Legal Support Analyst, Vascular Specialist as indicated. ?? Monitor patient compliance with wound care, diabetes management and proper offloading. Patients abdominal discomfort will improve or resolve by next follow up call from RN CC. General Not on track(03/09 11:41 AM EDT) No Joselyn Chance, RN Stay Tobacco Free Lifestyle On track(02/07 10:23 AM EDT) No Wendy Espinoza LPN HEMOGLOBIN A1C < 7.0 Result Component 5.6( 024 3:04 PM EST) Rachel Regan RMA documented as of this encounter Visit Diagnoses Not on filedocumented in this encounter Additional Health Concerns Assessment Noted Time A fall risk assessment has been complete d for the patient 11/08/2023 9:11 AM EST documented as of this encounter Care Teams Financial Reserve Clerk Relationship Specialty Start Date End Date Abel Pretty MD [address] [place] [address] PCP - General Family Medicine 12/30/23 Garett Holt MD Internal Medicine-Gastroenterology 12/22/12 Ruiz Stokes MD [address] [place] [address] [id number] Internal Medicine-Cardiovascular Disease 07/25/14 Yenny Schwab MD [address] [facility] [address] [place] [address] Internal Medicine-Rheumatology 12/11/16 documented as of this encounter
--- OUTSIDE RECORDS SUMMARY | 2024-07-22 15:56 | XMS_ITS | Encounter Summary ---
Author Organization [place] [address] Care Team Providers Care Pit Inspector Name Role Phone Garett Holt MD Unavailable [phone] Ruiz Stokes MD Unavailable [phone] Yenny Schwab MD Unavailable [phone] Abel Pretty MD Primary Care Provider Reason for Visit * Reason Onset Date Comments Symptoms (Only Use If Pt Pus hes Back On Scheduling A Visit) 03/25/2024 911-FYI: advised ER- swollen , hot, discolored leg, very painful to the touch Encounter Details Date Type Department Care Team (Late st Contact Info) Description 03/25/2024 Telephone [facility] [address] [place] [address] Abel Pretty MD [address] [place] [address] Symptoms (Only Use If Pt Pushes Back On Scheduling A Visit) (911-FYI: advised ER- swollen, hot, discolored leg, very painful to the touch) Social History Tobacco Use Types Packs/Day Years [...] Date Recorded PHQ-2 Total Score 0 01/03/2024 [facility] - Occupational [...] EDRodolfo Mcknight MA documented in this encounter Miscellaneous Notes * Telephone Encounter - Vicky Oliva MA - 03/25/2024 4:46 PM EDT PCP notified * Telephone Encounter - Juju Moran - 03/25/2024 4:36 PM EDT Select the most appropriate reason for this telephone message: 911 Emergency Who is calling (be specific): Other daughter Symptoms/Situation: left leg swollen, black/purpleish/yellow tint, hot to tocuh- very painful to the touch (pt screams) x 3-4 days Were emergency services dispatched: No If No, was the patient advised to call 911 or proceed to the nearest emergency department if they are experiencing a life threatening condition: Yes- spouse is going to take her to ER. Declined to speak with recovery manager Additional Notes: FYI documented in this encounter Plan of Treatment Upcoming Encounters Date Type Department Care Team (Late st Contact Info) Description 07/29/2024 9:00 AM EST Appointment [facility] [address] [place] [id number] Jomar Kim MD [address] [facility] [id number] documented as of this encounter Goals Goal [...] neuropathy weekly. ?? Refer to PCP and/or Vacuum Pan Tender, Vascular Specialist as indicated. ?? Monitor patient [...] documented as of this encounter Care Teams Pit Inspector Relationship Specialty Start Date End Date Abel Pretty MD [address] [place] [address] PCP - General Family Medicine 12/30/23 Garett Holt MD Internal Medicine-Gastroenterology 12/22/12 Ruiz Stokes MD [address] [place] [address] Internal Medicine-Cardiovascular Disease 07/25/14 Yenny Schwab MD [address] [address] Internal Medicine-Rheumatology 12/11/16 documented as of this encounter
--- OUTSIDE RECORDS SUMMARY | 2024-07-22 15:56 | XMS_ITS | Encounter Summary ---
Author Organization [place] [address] Care Team Providers Care Senior Information Security Architect Name Role Phone Garett Holt MD Unavailable [phone] Ruiz Stokes MD Unavailable [phone] Yenny Schwab MD Unavailable [phone] Abel Pretty MD Primary Care Provider Reason for Referral * Echo (Routine) - Closed Specialty Diagnoses / Procedures Referred By Contac t Referred To Contact Radiology Diagnoses Localized swelling of both lower legs Shortness of breath Procedures EC ECHOCARDIOGRAM COMPLETE W DOPPLER AND COLOR FLOW MAPPING Abel Pretty MD [address] [place] [address] Phone: tel: fax: Referral ID Status Reason Start Date Expiration Date Visits Re quested Visits Authorized [id number] Closed 04/01/2024 04/01/2026 1 1 Encounter Details Date Type Department Care Team (Late st Contact Info) Description 04/01/2024 9:30 AM EDT Telemedicine [facility] [address] [place] [address] Abel Pretty MD [address] [place] [address] Localized swelling of both lower legs (Primary Dx); Shortness of breath; Lower extremity edema Social History Tobacco Use Types Packs/Day Years [...] 0 01/03/2024 [facility] - Occupational Stress Questionnaire Answer Date [...] Refills Last Filled Start Date End Date hydroCHLOROthiazide 50 mg Oral TabletIndications:L ocalized swelling of both lower legs,Lower extremity edema Take 1 Tablet by mouth 2 times daily. 60 Tablet 2 04/01/2024 documented in this encounter Progress Notes * Abel Pretty MD - 04/01/2024 9:30 AM EDT Patient presented today for routine care follow-up through a video visit. Patient has reviewed the terms and conditions of service as part of the registration for today's visit. A video visit does not replace a icpq-gc-ojir exam and further services may be necessary. We are conducting her video visit in a private space and this video visit is being conducted in accordance with state telehealth/video visit regulations. HPI: Legs and arms with swelling, taking water pills. Drinking 4-5 bottles of water a day, 2 gatorades, urinating frequency, 20 times per day. Review of Systems Constitutional: Negative for fever. Eyes: Negative for visual disturbance. Respiratory: Positive for shortness of breath. Negative for cough. Cardiovascular: Positive for leg swelling. Negative for chest pain and palpitations. Gastrointestinal: Negative for abdominal pain, constipation and diarrhea. Genitourinary: Negative for difficulty urinating. Musculoskeletal: Negative for joint swelling. Skin: Negative for rash. Neurological: Negative for dizziness, light-headedness and headaches. Exam: Constitutional: NAD, appropriately groomed. Appears comfortable. HENT: No gross deformities. Voice normal. No facial swelling noted. Eyes: Extra occular movements grossly intact. Visible portions of the eyes appear normal. No redness or discharge visible via casual video inspection. Cardiopulmonary: Does not appear in cardiopulmonary distress. Easy respirations w/o labored breathing. No audible gross wheezing or breathlessness. Neuro: Alert and oriented. Conversational. No gross deficits or facial droop appreciated on video evaluation. Psych: Appropriate mood and affect. Normal conversation and thought content. Assessment Diagnoses and all orders for this visit: Localized swelling of both lower legs - EC ECHOCARDIOGRAM COMPLETE W DOPPLER AND COLOR FLOW MAPPING; Future - hydroCHLOROthiazide 50 mg Oral Tablet; Take 1 Tablet by mouth 2 times daily. Dispense: 60 Tablet;Refill: 2 Shortness of breath - EC ECHOCARDIOGRAM COMPLETE W DOPPLER AND COLOR FLOW MAPPING; Future Lower extremity edema - hydroCHLOROthiazide 50 mg Oral Tablet; Take 1 Tablet by mouth 2 times daily. Dispense: 60 Tablet;Refill: 2 US with no DVTs. Will increase hctz. Can follow up with cards. ER if worsens. documented in this encounter Plan of Treatment Upcoming Encounters Date Type Department Care Team (Late st Contact Info) Description 07/29/2024 9:00 AM EST Appointment [facility] [address] [place] [address] Jomar Kim MD [address] [place] [address] documented as of this encounter Goals Goal Patient Goal Type Associated Problems Recent Progress Patient-Stated? Author Blood Pressure < 140/90 Blood Pressure 110/72(04/09 2:44 PM EDT) No Rachel Rogers, RMA BMI (Calculated) < 30 General 50.9(2023 2:44 PM EDT) No Rachel Rogers, RMA Eat better, exercise, reach an ideal body weight General No Ni [place], improvement intern Healing General On track(12/03 9:18 AM EDT) [...] neuropathy weekly. ?? Refer to PCP and/or Auto Glass Installer, Vascular Specialist as indicated. ?? Monitor patient [...] Component 5.6( 024 3:04 PM EST) No Alex Rogersana Liv, MULU documented as of this encounter Procedures Procedure Name Priority Date/Time Associated Diagnosis Comments SCANNED LABS 07/04/2024 8:13 PM EDT documented in this encounter Results * SCANNED LABS (07/04/2024 8:13 PM [...] Diagnoses Diagnosis Localized swelling of both lower legs- Primary Shortness of breath Lower extremity edema Edema Localized swelling of both lower legs Shortness of breath documented in this encounter Discontinued Medications Medication Sig Discontinue Reason Start Date End Da te hydroCHLOROthiazide 50 mg Oral TabletIndications:Lower extremity edema Take 1 Tablet by mouth daily. Cancelled by 01/03/2024 04/01/2024 documented as of this encounter Additional Health Concerns Assessment Noted Time A fall risk assessment has been complete d for the patient 11/08/2023 9:11 AM EST documented as of this encounter Care Teams Senior Information Security Architect Relationship Specialty Start Date End Date Abel Pretty MD [address] [place] [address] PCP - General Family Medicine 12/30/23 Garett Holt MD Internal Medicine-Gastroenterology 12/22/12 Ruiz Stokes MD [address] [place] [address] Internal Medicine-Cardiovascular Disease 07/25/14 Yenny Schwab MD [address] [address] Internal Medicine-Rheumatology 12/11/16 documented as of this encounter
--- OUTSIDE RECORDS SUMMARY | 2024-07-22 15:56 | XMS_ITS | Encounter Summary ---
Author Organization [place] [address] Care Team Providers Care Corporate Analyst Name Role Phone Garett Holt MD Unavailable [phone] Ruiz Stokes MD Unavailable [phone] Yenny Schwab MD Unavailable [phone] Abel Pretty MD Primary Care Provider Reason for Visit * Reason Comments Medication Refill Encounter Details Date Type Department Care Team (Late st Contact Info) Description 02/14/2024 Refill [facility] [address] [place] [address] Abel Pretty MD [address] [place] [address] Medication Refill Social History Tobacco Use Types [...] Date Recorded PHQ-2 Total Score 0 01/03/2024 [facility] - Occupational Stress Questionnaire Answer [...] Assessment Author Yes 01/03/2024 10:47 AM EDT Roodlfo Skelton MA * Because of a physical, [...] mouth once daily 90 Tablet 1 02/16/2024 documented in this encounter Miscellaneous Notes * Telephone Encounter - Lidya Berg CPhT - 02/16/2024 2:09 PM EDT lisinopril - Medication Refill Protocol passed. Vivek Action: Approved 90 day supply with sufficient refills to noted follow-up date by provider or protocol if no follow-up date noted, not to exceed 90 days past that date. LV assessed on 06/27/2023 documented in this encounter Plan of Treatment Upcoming Encounters Date Type Department Care Team (Late st Contact Info) Description 07/29/2024 9:00 AM EST Appointment [facility] [address] [place] [address] Jomar Kim MD [address] [place] [address] documented as of this encounter Goals [...] neuropathy weekly. ?? Refer to PCP and/or Applications Instructor, Vascular Specialist as indicated. ?? Monitor patient [...] te lisinopriL (PRINIVIL;ZESTRIL) 10 mg Oral Tablet Take 1 Tablet by mouth daily. 01/06/2024 02/16/2024 documented as of this encounter Additional Health Concerns Assessment Noted Time A fall risk assessment has been complete d for the patient 11/08/2023 9:11 AM EST documented as of this encounter Care Teams Corporate Analyst Relationship Specialty Start Date End Date Abel Pretty MD [address] [place] [address] PCP - General Family Medicine 12/30/23 Garett Holt MD Internal Medicine-Gastroenterology 12/22/12 Ruiz Stokes MD [address] [place] [address] Internal Medicine-Cardiovascular Disease 07/25/14 Yenny Schwab MD 651 [facility] [address] [place] [address] Internal Medicine-Rheumatology 12/11/16 documented as of this encounter
--- OUTSIDE RECORDS SUMMARY | 2024-07-22 15:56 | XMS_ITS | Encounter Summary ---
Author Organization [facility] [place] [address] Care Team Providers Care Gas Distribution Supervisor Name Role Phone Garett Holt MD Unavailable [phone] Ruiz Stokes MD Unavailable [phone] Yenny Schwab MD Unavailable [phone] Abel Pretty MD Primary Care Provider Reason for Visit * Reason Onset Date Comments Medication Management 01/05/2024 Glipizide adherence Encounter Details Date Type Department Care Team (Late st Contact Info) Description 01/05/2024 Patient Outreach [facility]P [facility] [address] [place] [address] Bam Albarran, LeonorD Medication Management (Glipizide adherence) Social History Tobacco Use Types Packs/Day Years [...] Date Recorded PHQ-2 Total Score 0 01/03/2024 [facility] - Occupational Stress Questionnaire Answer Date Recorded [...] EDRodolfo Mcknight MA documented in this encounter Progress Notes * Bam Albarran PharmD - 01/05/2024 10:51 AM EDT Pharmacy Consult 01/05/2024 with Bam Albarran PharmD: Alyssa Jamil was contacted for medication adherence outreach on 01/05/24. Pharmacist spoke to patient telephonically. SUBJECTIVE Upon interview, patient admits to missing 0 doses of her medications per week. Patient has her help with adherence. Patient denies any barriers to adherence or cost concerns related to medication at this time. OBJECTIVE Per [employer] Payor Data / Dispensing Pharmacy: Drug Name/Class glipizide 5mg Last fill date 11/10/23 Days supply 30 Approx. days missed year to date 21 days Lab Results Component Value Date HGBA1C 5.6 11/09/2023 HGBA1C 6.0 (H) 05/31/2023 HGBA1C 6.1 (H) 07/27/2022 Lab Results Component Value Date MICROALBUR 10 01/10/2023 URINEMICROAL 13.4 05/31/2014 Lab Results Component Value Date CREATININE 0.90 12/12/2023 BUN 19 12/12/2023 NA 140 12/12/2023 K 4.2 12/12/2023 CL 102 12/12/2023 CO2 28 12/12/2023 GFRCKDEPI 70 12/12/2023 ASSESSMENT Medication Adherence [employer] party payor data indicates patient is not fully adherent with diabetes therapy. Patients' thinks he received refill of glipizide yesterday. No fill history in [facility] or on the insurances end. Patient authorized me to call pharmacy and find out which one they filled. Counseling Provided: Reviewed indication and importance of medication Discussed strategies to prevent missed doses of medication Patient encouraged to take medication at least 80% of the time, or aim for one missed dose of medication or less per week Patient encouraged to adhere to medication regimen as prescribed Patient instructed to notify clinic with any concerns regarding medications Recommendations: Problem Pharmacist Recommendation Medication Non-Adherence Recommend a 90-day supply for maintenance medications to prevent accidental lapses in drug therapy and improvement in adherence. Thank you for allowing me to participate in the care of this patient. Bam Albarran, Alvarado Motion Picture Film Examiner Pharmacist [facility] 01/05/2024 10:51 AM documented in this encounter Plan of Treatment Upcoming Encounters Date Type Department Care Team (Late st Contact Info) Description 07/29/2024 9:00 AM EST Appointment [facility] [address] [place] [address] Jomar Kim MD [address] [place], [place] [id number] documented as of this encounter Goals Goal Patient Goal Type Associated Problems Recent Progress Patient-Stated? Author Blood Pressure < 140/90 Blood Pressure 110/72(04/09 2:44 PM EDT) No Rachel Rogers RMA BMI (Calculated) < 30 General 50.9(2023 2:44 PM EDT) No Rachel Rogers RMA Eat better, exercise, reach an ideal body weight General No Ni [place], steel tester Healing General On track(12/03 9:18 AM EDT) [...] neuropathy weekly. ?? Refer to PCP and/or Green Inspector, Vascular Specialist as indicated. ?? Monitor patient [...] documented as of this encounter Care Teams Gas Distribution Supervisor Relationship Specialty Start Date End Date Abel Pretty MD [address] [place] [id number] PCP - General Family Medicine 12/30/23 Garett Holt MD Internal Medicine-Gastroenterology 12/22/12 Ruiz Stokes MD [address] [place] [address] Internal Medicine-Cardiovascular Disease 07/25/14 Yenny Schwab MD 651 [facility] [address] [place] [address] Internal Medicine-Rheumatology 12/11/16 documented as of this encounter
--- OUTSIDE RECORDS SUMMARY | 2024-07-22 15:56 | XMS_ITS | Encounter Summary ---
Author Organization [facility] [place] [address] Care Team Providers Care Olive Packer Name Role Phone Garett Holt MD Unavailable [phone] Ruiz Stokes MD Unavailable [phone] Yenny Schwab MD Unavailable [phone] Abel Pretty MD Primary Care Provider Encounter Details Date Type Department Care Team (Latest Contact Info) Description 04/01/2024 Travel Social History Tobacco Use Types Packs/Day [...] Date Recorded PHQ-2 Total Score 0 01/03/2024 [facility] of Occupat ional Health - Occupational Stress [...] 9:00 AM EST Appointment [facility] [address] [place] [address] Jomar Kim MD [address] [place] [address] documented as of this encounter Goals Goal Patient Goal Type Associated Problems Recent Progress Patient-Stated? Author Blood Pressure < 140/90 Blood Pressure 110/72(04/09 2:44 PM EDT) No Rachel Rogers RMA BMI (Calculated) < 30 General 50.9(2023 2:44 PM EDT) No Rachel Rogers RMA Eat better, exercise, reach an ideal body weight General No Ni [place], surveillance operator Healing General On track(12/03 9:18 AM [...] neuropathy weekly. ?? Refer to PCP and/or Dialer, Vascular Specialist as indicated. ?? Monitor patient [...] documented as of this encounter Care Teams Olive Packer Relationship Specialty Start Date End Date Abel Pretty MD [address] [place] [address] PCP - General Family Medicine 12/30/23 Garett Holt MD Internal Medicine-Gastroenterology 12/22/12 Ruiz Stokes MD [address] [place] [address] Internal Medicine-Cardiovascular Disease 07/25/14 Yenny Schwab MD [address] [address] Internal Medicine-Rheumatology 12/11/16 documented as of this encounter
--- OUTSIDE RECORDS SUMMARY | 2024-07-22 15:56 | XMS_ITS | Encounter Summary ---
Author Organization [place] [address] Care Team Providers Care Soil Conservation Technician Name Role Phone Garett Holt MD Unavailable [phone] Ruiz Stokes MD Unavailable [phone] Yenny Schwab MD Unavailable [phone] Abel Pretty MD Primary Care Provider Reason for Visit * Reason Onset Date Comments Medication Management 03/10/2024 lisinopriL (PRINIVIL;ZESTRIL) 10 mg Oral Tablet Encounter Details Date Type Department Care Team (Late st Contact Info) Description 03/10/2024 Telephone [facility] [address] [place] [address] Abel Pretty MD [address] [place] [address] Medication Management (lisinopriL (PRINIVIL;ZESTRIL) 10 mg Oral Tablet) Social History Tobacco Use Types Packs/Day Years [...] Date Recorded PHQ-2 Total Score 0 01/03/2024 [facility] - Occupational Stress Questionnaire Answer [...] encounter Miscellaneous Notes * Telephone Encounter - Ana Paula Skelton MA - 03/10/2024 2:38 PM EDT Pt notified * Telephone Encounter - Abel Pretty MD - 03/10/2024 11:55 AM EDT Yes, continue lisinopril * Telephone Encounter - Antonio Oliva - 03/10/2024 10:50 AM EDT Select the most appropriate reason for this telephone message: Medication Management/Problem Who is calling? Pharmacy Danny with [facility] pharmacy What medication(s) do you have concerns about: lisinopriL (PRINIVIL;ZESTRIL) 10 mg Oral Tablet 90 Tablet 1 02/16/2024 -- Sig - Route: Take 1 tablet by mouth once daily - Oral Sent to pharmacy as: lisinopriL 10 mg tablet (PRINIVIL;ZESTril) Cosign for Ordering: Accepted by Abel Pretty MD on 02/16/2024 2:33 PM E-Prescribing Status: Receipt confirmed by pharmacy (02/16/2024 2:10 PM EDT) Prescribing provider: Dr. Pretty What are your concerns/request: Danny states pt. is confused if she is supposed to be taking med or not. Desired outcome: Other confirm if pt. should be taking and if so will refill Last appointment date: 01/03/24 Pharmacy: [facility] [address] [place], [place] [address] [address] [address] - [phone] [address] [facility] [address] Additional notes: Danny states to inform pt. as well if she needs to be taking med. please advise documented in this encounter Plan of Treatment Upcoming Encounters Date Type Department Care Team (Late st Contact Info) Description 07/29/2024 9:00 AM EST Appointment [facility] [address] [place], [place] [id number] Jomar Kim MD [address] [place] [address] documented as of this encounter Goals Goal Patient Goal Type Associated Problems Recent Progress Patient-Stated? Author Blood Pressure < 140/90 Blood Pressure 110/72(04/09 2:44 PM EDT) No Rachel Rogers RMA BMI (Calculated) < 30 General 50.9(2023 2:44 PM EDT) No Rachel Rogers RMA Eat better, exercise, reach an ideal body weight General No Ni [place], other wood processing machine operator Healing General On track(12/03 9:18 AM [...] neuropathy weekly. ?? Refer to PCP and/or Risk Assessment Consultant, Vascular Specialist as indicated. ?? Monitor patient [...] documented as of this encounter Care Teams Soil Conservation Technician Relationship Specialty Start Date End Date Abel Pretty MD [address] [place] [address] PCP - General Family Medicine 12/30/23 Garett Holt MD Internal Medicine-Gastroenterology 12/22/12 Ruiz Stokes MD [address] [place], [place] [id number] Internal Medicine-Cardiovascular Disease 07/25/14 Yenny Schwab MD [address] [place] [address] Internal Medicine-Rheumatology 12/11/16 documented as of this encounter
--- OUTSIDE RECORDS SUMMARY | 2024-07-22 15:56 | XMS_ITS | Encounter Summary ---
Author Organization [place] [address] Care Team Providers Care Silver Cleaner Name Role Phone Garett Holt MD Unavailable [phone] Ruiz Stokes MD Unavailable [phone] Yenny Schwab MD Unavailable [phone] Abel Pretty MD Primary Care Provider Reason for Visit * Reason Comments Medication Refill Encounter Details Date Type Department Care Team (Late st Contact Info) Description 03/08/2024 Refill [facility] [address] [place] [address] Abel Pretty MD [address] [place] [address] Medication Refill Social History Tobacco Use Types [...] Recorded PHQ-2 Total Score 0 01/03/2024 [facility] - Occupational Stress Questionnaire Answer Date [...] Refills Last Filled Start Date End Date glipiZIDE (GLUCOTROL) 5 mg Oral TabletIndications:T ype 2 diabetes mellitus without complication, without long-term current use of insulin (HCC) Take 1 tablet by mouth once daily 90 Tablet 1 03/09/2024 documented in this encounter Miscellaneous Notes * Telephone Encounter - Sobia Gutierres CPhT - 03/09/2024 3:04 PM EDT Glipizide- Medication Refill Protocol passed. Vivek Action: Approved 90 day supply with sufficient refills to noted follow-up date by provider or protocol if no follow-up date noted, not to exceed 90 days past that date. documented in this encounter Plan of Treatment Upcoming Encounters Date Type Department Care Team (Late st Contact Info) Description 07/29/2024 9:00 AM EST Appointment [facility] [address] [place] [address] Jomar Kim MD [address] [place] [address] documented as of this encounter Goals Goal Patient Goal Type Associated Problems Recent Progress Patient-Stated? Author Blood Pressure < 140/90 Blood Pressure 110/72(08/2 2:44 PM EDT) No Rachel Rogers RMA BMI (Calculated) < 30 General 50.9(2023 2:44 PM EDT) No Rachel Rogers RMA Eat better, exercise, reach an ideal body weight General No Ni Clinton wallcovering hanger Healing General On track(12/03 9:18 AM EDT) [...] neuropathy weekly. ?? Refer to PCP and/or [place] Miner Blasting, Vascular Specialist as indicated. ?? Monitor patient [...] as of this encounter Visit Diagnoses Diagnosis Type 2 diabetes mellitus without complication, without long-term current use of insulin (HCC) documented in this encounter Discontinued Medications Medication Sig Discontinue Reason Start Date End Da te glipiZIDE (GLUCOTROL) 5 mg Oral TabletIndications:Type 2 diabetes mellitus without complication, without long-term current use of insulin (HCC) Take 1 Tablet by mouth daily. 11/10/2023 03/09/2024 documented as of this encounter Additional Health Concerns Assessment Noted Time A fall risk assessment has been complete d for the patient 11/08/2023 9:11 AM EST documented as of this encounter Care Teams Silver Cleaner Relationship Specialty Start Date End Date Abel Pretty MD [address] [place] [address] PCP - General Family Medicine 12/30/23 Garett Holt MD Internal Medicine-Gastroenterology 12/22/12 Ruiz Stokes MD [address] [place] [address] Internal Medicine-Cardiovascular Disease 07/25/14 Yenny Schwab MD [address] [address] Internal Medicine-Rheumatology 12/11/16 documented as of this encounter
--- OUTSIDE RECORDS SUMMARY | 2024-07-22 15:57 | XMS_ITS | Encounter Summary ---
Author [place] [address] Care Team Providers Care Sr. Logistics Analyst Name Role Phone Garett Holt MD Unavailable [phone] Ruiz Stokes MD Unavailable [phone] Yenny Schwab MD Unavailable [phone] Cristiane Shirley MD Primary Care Provider Reason for Visit * Reason Onset Date Comments Prior Authorization 12/22/2023 Encounter Details Date Type Department Care Team (Late st Contact Info) Description 12/22/2023 Telephone [facility] [address] [place] [address] Fide Moffett, [facility] [address] [facility] [address] [place] [address] Prior Authorization Social History Tobacco Use Types Packs/Day Years [...] Answer Date Recorded PHQ-2 Total Score 0 12/21/2022 [facility]at ional [facility] - Occupational Stress [...] hearing? Answer Date of Assessment Author No 05/31/2023 9:02 AM Lisa Mccartney MA * Is the person blind or does he/she have serious difficulty seeing even when wearing glasses? Answer Date of Assessment Author No 05/31/2023 9:02 AM Lisa Mccartney MA * Does this person have serious difficulty walking or climbing stairs? Answer Date of Assessment Author No 05/31/2023 9:02 AM EDT Lisa Patel MA * Does this person have difficulty dressing or bathing? Answer Date of Assessment Author No 05/31/2023 9:02 AM EDT Lisa Patel MA * Because of a physical, mental or emotional condition, does this person have difficulty doing errands alone such as visiting a doctor's office or shopping? Answer Date of Assessment Author No 05/31/2023 9:02 AM EDT Lisa Patel MA documented as of this encounter Mental Status * Because of a physical, mental or emotional condition, does this person have serious difficulty concentrating, remembering or making decisions? Answer Entry Date Author No 05/31/2023 9:02 AM EDT Lisa Patel MA documented in this encounter Miscellaneous Notes * Telephone Encounter - Abel Pretty MD - 12/23/2023 9:53 AM EDT Amitiza sent in instead * Telephone Encounter - Fide Moffett RMA - 12/22/2023 5:34 PM EDT Roxann FINCH was Denied. This drug is not covered on the formulary. We are denying your request because we do not show that you have tried at least 2 covered drugs that can treat your condition. Othercovered drug(s) is/are: Linzess Oral Capsule (72 mcg, 145 mcg, 290 mcg), Lubiprostone Oral Capsule (8 mcg, 24 mcg). We may be able to make an exception to cover this drug. Your doctor will need to send us medical records showing that you tried this drug. If you cannot take the covered drug, your doctor will need to tell us why. Note: Some covered drug(s) may have quantity limits. Please refer to the formulary for details. documented in this encounter Plan of Treatment Upcoming Encounters Date Type Department Care Team (Late st Contact Info) Description 07/29/2024 9:00 AM EST Appointment [facility] [address] [place] [id number] Jomar Kim MD [address] [facility] [place] [address] documented as of this encounter Goals [...] neuropathy weekly. ?? Refer to PCP and/or Mechanical Maintenance Engineer, Vascular Specialist as indicated. ?? Monitor [...] documented as of this encounter Care Teams Sr. Logistics Analyst Relationship Specialty Start Date End Date Crisitane Shirley MD [address] [place] [address] PCP - General Family Medicine 08/20/18 12/29/23 Garett Holt MD Internal Medicine-Gastroenterology 12/22/12 Ruiz Stokes MD [address] [place] [address] Internal Medicine-Cardiovascular Disease 07/25/14 Yenny Schwab MD [address] [address] Internal Medicine-Rheumatology 12/11/16 documented as of this encounter
--- OUTSIDE RECORDS SUMMARY | 2024-07-22 15:57 | XMS_ITS | Encounter Summary ---
Author Organization [place] [address] Care Team Providers Care Training Project Manager Name Role Phone Garett Holt MD Unavailable [phone] Ruiz Stokes MD Unavailable [phone] Yenny Schwab MD Unavailable [phone] Cristiane Shirley MD Primary Care Provider Reason for Visit * Reason Comments Medication Refill Encounter Details Date Type Department Care Team (Late st Contact Info) Description 11/23/2023 Refill [facility] 100 [place] [address] Cristiane Shirley MD [address] [place] [address] Medication Refill Social History Tobacco Use Types [...] Date Recorded PHQ-2 Total Score 0 12/21/2022 [facility] of Occupat ional [facility] - Occupational Stress Questionnaire Answer [...] Author No 05/31/2023 9:02 AM EDT Lisa Paetl MA * Does this person have difficulty [...] Lisa Patel MA documented in this encounter Ordered Prescriptions Prescription Sig Dispense Quantity Refills Last Filled Start Date End Date spironolactone (ALDACTONE) 25 mg Oral Tablet Take 1 tablet by mouth once daily 90 Tablet 2 11/24/2023 documented in this encounter Miscellaneous Notes * Telephone Encounter - Lidya Berg CPhT - 11/24/2023 4:58 PM EDT spironolactone - Medication Refill Protocol passed. Vivek Action: Approved 90 day supply with sufficient refills to noted follow-up date by provider or protocol if no follow-up date noted, not to exceed 90 days past that date. No DX code associated with medication LV assessed on 06/27/2023 documented in this encounter Plan of Treatment Upcoming Encounters Date Type Department Care Team (Late st Contact Info) Description 07/29/2024 9:00 AM EST Appointment [facility] [address] [place] [address] Jomar Kim MD [address] [place] [address] documented as of this encounter [...] neuropathy weekly. ?? Refer to PCP and/or Account Specialist, Vascular Specialist as indicated. ?? Monitor patient [...] Discontinue Reason Start Date End Da te spironolactone (ALDACTONE) 25 mg Oral Tablet Take 1 Tablet by mouth daily. 08/07/2023 11/24/2023 documented as of this encounter Additional Health Concerns Assessment Noted Time A fall risk assessment has been complete d for the patient 11/08/2023 9:11 AM EST documented as of this encounter Care Teams Training Project Manager Relationship Specialty Start Date End Date Cristiane Shirley MD [address] [place] [address] PCP - General Family Medicine 08/20/18 12/29/23 Garett Holt MD Internal Medicine-Gastroenterology 12/22/12 Ruiz Stokes MD [address] [place] [address] Internal Medicine-Cardiovascular Disease 07/25/14 Yenny Schwab MD [address] [address] Internal Medicine-Rheumatology 12/11/16 documented as of this encounter
--- OUTSIDE RECORDS SUMMARY | 2024-07-22 15:57 | XMS_ITS | Encounter Summary ---
Author Organization [place] [address] Care Team Providers Care Sales Host Name Role Phone Garett Holt MD Unavailable [phone] Ruiz Stokes MD Unavailable [phone] Yenny Schwab MD Unavailable [phone] Cristiane Shirley MD Primary Care Provider [phone] Reason for Visit * Reason Comments Medication Refill Encounter Details Date Type Department Care Team (Late st Contact Info) Description 12/14/2023 Refill [facility] [address] [place] [address] Cristiane Shirley MD [address] [place] [address] Medication Refill Social History Tobacco Use Types [...] Date Recorded PHQ-2 Total Score 0 12/21/2022 [facility] of Occupat ional [facility] [place] - Occupational Stress Questionnaire Answer Date Recorded [...] 05/31/2023 9:02 AM Lisa Mccartney MA * Because of a physical, mental or emotional condition, does this person have difficulty doing errands alone such as visiting a doctor's office or shopping? Answer Date of Assessment Author No 05/31/2023 9:02 AM Lisa Mccartney MA documented as of this encounter Mental Status * Because of a physical, mental or emotional condition, does this person have serious difficulty concentrating, remembering or making decisions? Answer Entry Date Author No 05/31/2023 9:02 AM Lisa Mccartney MA documented in this encounter Plan of Treatment Upcoming Encounters Date Type Department Care Team (Late st Contact Info) Description 07/29/2024 9:00 AM EST Appointment [facility] [address] [place], [place] [id number] Jomar Kim MD [address] [place] [address] documented as of this encounter Goals Goal Patient Goal Type Associated Problems Recent Progress Patient-Stated? Author Blood Pressure < 140/90 Blood Pressure 110/72(04/09 2:44 PM EDT) No Rachel Rogers RMA BMI (Calculated) < 30 General 50.9(2023 2:44 PM EDT) No Rachel Rogers RMA Eat better, exercise, reach an ideal body weight General No Ni Clinton, personnel clerk Healing General On track(12/03 9:18 AM EDT) [...] neuropathy weekly. ?? Refer to PCP and/or Structural Iron Worker, Vascular Specialist as indicated. ?? Monitor [...] documented as of this encounter Care Teams Sales Host Relationship Specialty Start Date End Date Cristiane Shirley MD [address] [place] [address] PCP - General Family Medicine 08/20/18 12/29/23 Garett Holt MD Internal Medicine-Gastroenterology 12/22/12 Ruiz Stokes MD [address] [place] [address] Internal Medicine-Cardiovascular Disease 07/25/14 Yenny Schwab MD [address] [place] [id number] Internal Medicine-Rheumatology 12/11/16 documented as of this encounter
--- OUTSIDE RECORDS SUMMARY | 2024-07-22 15:57 | XMS_ITS | Encounter Summary ---
Author Organization [place] [address] Care Team Providers Care Medical Clinic Manager Name Role Phone Garett Holt MD Unavailable [phone] Ruiz Stokes MD Unavailable [phone] Yenny Schwab MD Unavailable [phone] Cristiane Shirley MD Primary Care Provider Reason for Visit * Reason Onset Date Comments Central Order Completion Outreach 11/19/2023 mammogram/dexa Encounter Details Date Type Department Care Team (Late st Contact Info) Description 11/19/2023 Patient Outreach SEP [facility] [address] [place] [address] Cristiane Shirley MD [address] [place] [address] Central Order Completion Outreach (mammogram/dexa) Social History Tobacco Use Types Packs/Day Years [...] Date Recorded PHQ-2 Total Score 0 12/21/2022 [facility] of Occupat ional Health - Occupational [...] of Assessment Author No 05/31/2023 9:02 AM RINAT Lisa Patel MA * Does this person [...] Lisa Mccartney MA documented in this encounter Progress Notes * Jacqueline Issa RN - 11/24/2023 3:31 PM EDT SEP Order Completion Outcome Tracking Contact Attempt:: Final Mammogram Outcome:: Left Message with Individual DEXA Outcome:: Left Message with Individual * Jeanette Stover RN - 11/19/2023 8:59 AM EDT SEP Order Completion Outcome Tracking Contact Attempt:: First Mammogram Outcome:: Left Voicemail to Return Call at [phone], MyChart Message DEXA Outcome:: Left Voicemail to Return Call at [phone], MyChart Message documented in this encounter Plan of Treatment Upcoming Encounters Date Type Department Care Team (Late st Contact Info) Description 07/29/2024 9:00 AM EST Appointment [facility] [address] [place] [address] Jomar Kim MD [address] [place] [address] documented as of this encounter Goals Goal [...] neuropathy weekly. ?? Refer to PCP and/or Mobile Marketing Specialist, Vascular Specialist as indicated. ?? Monitor [...] documented as of this encounter Care Teams Medical Clinic Manager Relationship Specialty Start Date End Date Cristiane Shirley MD [address] [place] [address] PCP - General Family Medicine 08/20/18 12/29/23 Garett Holt MD Internal Medicine-Gastroenterology 12/22/12 Ruiz Stokes MD [address] [place] [address] Internal Medicine-Cardiovascular Disease 07/25/14 Yenny Schwab MD [address] [address] Internal Medicine-Rheumatology 12/11/16 documented as of this encounter
--- OUTSIDE RECORDS SUMMARY | 2024-07-22 15:57 | XMS_ITS | Encounter Summary ---
Author Organization [place] [address] Care Team Providers Care Superintendent Renting Managing Name Role Phone Garett Holt MD Unavailable [phone] Ruiz Stokes MD Unavailable Yenny Schwab MD Unavailable [phone] Cristiane Shirley MD Primary Care Provider Reason for Visit * Reason Onset Date Comments Medication Refill 12/15/2023 pantoprazole ( PROTONIX) 40 mg Oral Tablet, Delayed Release (E.C.) Encounter Details Date Type Department Care Team (Late st Contact Info) Description 12/15/2023 Telephone [facility] [address] [place] [address] Cristiane Shirley MD [address] [place] [address] Medication Refill (pantoprazole (PROTONIX) 40 mg Oral Tablet, Delayed Release (E.C.)) Social History Tobacco Use Types Packs/Day Years [...] Date Recorded PHQ-2 Total Score 0 12/21/2022 [facility] - Occupational Stress Questionnaire Answer [...] 9:02 AM EDT Lisa Patel MA * Is the person blind or does he/she have serious difficulty seeing even when wearing glasses? Answer Date of Assessment Author No 05/31/2023 9:02 AM Lisa Mccartney MA * Does this person have serious difficulty walking or climbing stairs? Answer Date of Assessment Author No 05/31/2023 9:02 AM Lisa Mccartney MA * Does this person have difficulty [...] Lisa Mccartney MA documented in this encounter Ordered Prescriptions Prescription Sig Dispense Quantity Refills Last Filled Start Date End Date pantoprazole (PROTONIX) 40 mg Oral Tablet, Delayed Release (E.C.) Take 1 Tablet by mouth daily. 90 Tablet 2 12/15/2023 04/27/2024 documented in this encounter Miscellaneous Notes * Telephone Encounter - Antonio Oliva - 12/15/2023 12:07 PM EDT Select the most appropriate reason for this telephone message: Medication Refill Who is requesting the refill: Other pt. spouse Medication(s)Name/Dosage/Frequency: pantoprazole (PROTONIX) 40 mg Oral Tablet, Delayed Release (E.C.) 90 Tablet 0 08/07/2023 -- Sig - Route: Take 1 Tablet by mouth daily. - Oral Sent to pharmacy as: pantoprazole 40 mg tablet,delayed release (PROTONIX Did patient contact the pharmacy first: yes advised to contact pcp How many days left on hand: 0 Future appt date w/ prescribing provider: no was seen today 12/15/23 Pharmacy & Location: [facility] [place] [address] - [address] [place] [address] - [phone] [address] [place] [address] Additional Notes: med not pended - shows already ordered when pending. please advise documented in this encounter Plan of Treatment Upcoming Encounters Date Type Department Care Team (Late st Contact Info) Description 07/29/2024 9:00 AM EST Appointment [facility] [address] [place] [address] Jomar Kim MD [address] [place], [place] [id number] documented as of this encounter Goals Goal Patient Goal Type Associated Problems Recent Progress Patient-Stated? Author Blood Pressure < 140/90 Blood Pressure 110/72(04/09 2:44 PM EDT) No Rachel Rogers RMA BMI (Calculated) < 30 General 50.9(2023 2:44 PM EDT) No Rachel Rogers RMA Eat better, exercise, reach an ideal body weight General No Ni Clinton, envelope maker Healing General On track(12/03 9:18 AM EDT) [...] neuropathy weekly. ?? Refer to PCP and/or Dryland Farmer, Vascular Specialist as indicated. ?? Monitor patient [...] (E.C.) Take 1 Tablet by mouth daily. Reorder 08/07/2023 12/15/2023 documented as of this encounter Additional Health Concerns Assessment Noted Time A fall risk assessment has been complete d for the patient 11/08/2023 9:11 AM EST documented as of this encounter Care Teams Superintendent Renting Managing Relationship Specialty Start Date End Date Cristiane Shirley MD [address] [place] [address] PCP - General Family Medicine 08/20/18 12/29/23 Garett Holt MD Internal Medicine-Gastroenterology 12/22/12 Ruiz Stokes MD [address] [place] [address] Internal Medicine-Cardiovascular Disease 07/25/14 Yenny Schwab MD [address] [id number] Internal Medicine-Rheumatology 12/11/16 documented as of this encounter
--- OUTSIDE RECORDS SUMMARY | 2024-07-22 15:57 | XMS_ITS | Encounter Summary ---
Author [place] [address] Care Team Providers Care Finisher Machine Name Role Phone Garett Holt MD Unavailable [phone] Ruiz Stokes MD Unavailable [phone] Yenny Schwab MD Unavailable [phone] Cristiane Shirley MD Primary Care Provider Abel Pretty MD Primary Care Provider Reason for Visit * Reason Onset Date Comments Appointment Needed 12/12/2023 Acute Encounter Details Date Type Department Care Team (Late st Contact Info) Description 12/12/2023 Telephone [facility] 100 [place] [address] Cristiane Shirley MD [address] [place] [address] Appointment Needed (Acute/) Social History Tobacco Use Types Packs/Day Years [...] Date Recorded PHQ-2 Total Score 0 01/03/2024 [employer] of Occupat ional [facility] - Occupational Stress Questionnaire Answer [...] Lisa Mccartney MA documented in this encounter Miscellaneous Notes * Telephone Encounter - Nathalie Cabezas - 12/12/2023 1:08 PM EDT Called to schedule pt and pts spouse said that their son is on his way with her to [facility]. * Telephone Encounter - Mehul Schmidt DO - 12/12/2023 12:44 PM EDT Ok for appt at 3:30 or 3:45 * Telephone Encounter - Nathalie Cabezas - 12/12/2023 10:59 AM EDT No appt available. Do you want to work in? * Telephone Encounter - Maryam Juarez - 12/12/2023 10:55 AM EDT Select the most appropriate reason for this telephone message: Appointment Needed Appointment Requested By: sheng Provider Preference: Any Available Type of Appt Needed: Acute Detailed Reason for Appt: swelling in arms and feet, home health thinks it could be CHF, also hip pain , some chest pain, declined ED/ also SOB when walking. Requested Timeframe: 12/13/23 Reason Scheduling Assistance is Needed: -no appts available with provider preference in time frame needed Additional Notes: documented in this encounter Plan of Treatment Upcoming Encounters Date Type Department Care Team (Late st Contact Info) Description 07/29/2024 9:00 AM EST Appointment [facility] [address] [place] [address] Jomar Kim MD [address] [place] [address] documented as of this encounter Goals Goal Patient Goal Type Associated Problems Recent Progress Patient-Stated? Author Blood Pressure < 140/90 Blood Pressure 110/72(04/09 2:44 PM EDT) No Rachel Rogers RMA BMI (Calculated) < 30 General 50.9(2023 2:44 PM EDT) No Rachel Rogers RMA Eat better, exercise, reach an ideal body weight General No Ni Clinton, survey questionnaire designer Healing General On track(12/03 9:18 AM [...] neuropathy weekly. ?? Refer to PCP and/or Contract Modeler, Vascular Specialist as indicated. ?? Monitor patient [...] documented as of this encounter Care Teams Finisher Machine Relationship Specialty Start Date End Date Cristiane Shirley MD [address] [place] [address] PCP - General Family Medicine 08/20/18 12/29/23 Abel Pretty MD [address] [place] [address] PCP - General Family Medicine 12/30/23 Garett Holt MD Internal Medicine-Gastroenterology 12/22/12 Ruiz Stokes MD [address] [place] [address] Internal Medicine-Cardiovascular Disease 07/25/14 Yenny Schwab MD [address] [address] Internal Medicine-Rheumatology 12/11/16 documented as of this encounter
--- OUTSIDE RECORDS SUMMARY | 2024-07-22 15:57 | XMS_ITS | Encounter Summary ---
Author Organization [place] [address] Care Team Providers Care Assembly Instructions Writer Name Role Phone Garett Holt MD Unavailable [phone] Ruiz Stokes MD Unavailable [phone] Yenny Schwab MD Unavailable [phone] Cristiane Shirley MD Primary Care Provider [phone] Reason for Visit * Reason Onset Date Comments Medication Management 11/10/2023 dapagliflo zin propanediol (FARXIGA) 10 mg Oral Tablet 30 Tablet 2 11/08/2023 - Sig - Route: Take 1 Tablet by mouth daily. - Oral Sent to pharmacy as: dapagliflozin propanediol 10 mg tablet (Farxiga) E-Prescribing Status: Receipt confirmed by pharmacy (11/08/2023 9:52 AM EST) dapagliflozin propanediol (FARXIGA) 10 mg Oral Tablet [[id number]] Encounter Details Date Type Department Care Team (Late st Contact Info) Description 11/10/2023 Telephone [facility] [address] [place] [address] Cristiane Shirley MD [address] [place] [address] Medication Management (dapagliflozin propanediol (FARXIGA) 10 mg Oral Tablet 30 Tablet 2 11/08/2023 - /Sig - Route: Take 1 Tablet by mouth daily. - Oral /Sent to pharmacy as: dapagliflozin propanediol 10 mg tablet (Farxiga) /E-Prescribing Status: Receipt confirmed by pharmacy (11/08/2023 9:52 AM EST) //dapagliflozin propanediol (FARXIGA) 10 mg Oral Tablet [[id number]]//) Social History Tobacco Use Types Packs/Day Years [...] Date Recorded PHQ-2 Total Score 0 12/21/2022 [facility]at ional Health [...] End Date glipiZIDE (GLUCOTROL) 5 mg Oral TabletIndications: Type 2 diabetes mellitus without complication, without long-term current use of insulin (HCC) Take 1 Tablet by mouth daily. 30 Tablet 2 11/10/2023 03/09/2024 documented in this encounter Miscellaneous Notes * Telephone Encounter - Roslyn Calabrese RMA - 11/10/2023 3:35 PM EST Pt spouse aware * Telephone Encounter - Abel Pretty MD - 11/10/2023 1:03 PM EST Glipizide sent in instead * Telephone Encounter - Kym Hsu - 11/10/2023 11:39 AM EST Select the most appropriate reason for this telephone message: Medication Management/Problem Who is calling? Patient's spouse What medication(s) do you have concerns about: dapagliflozin propanediol (FARXIGA) 10 mg Oral Tablet 30 Tablet 2 11/08/2023 -- Sig - Route: Take 1 Tablet by mouth daily. - Oral Sent to pharmacy as: dapagliflozin propanediol 10 mg tablet (Farxiga) E-Prescribing Status: Receipt confirmed by pharmacy (11/08/2023 9:52 AM EST) dapagliflozin propanediol (FARXIGA) 10 mg Oral Tablet [[id number]] Prescribing provider:Dr Pretty What are your concerns/request: this medication is over $500 and won't be covered with insurance Desired outcome: Change in medication to glipizide Last appointment date: 11/07 Pharmacy: [facility] Additional notes: please advise and send alternate Rx documented in this encounter Plan of Treatment Upcoming Encounters Date Type Department Care Team (Late st Contact Info) Description 07/29/2024 9:00 AM EST Appointment [facility] [address] [place] [address] Jomar Kim MD [address] [place] [address] documented as of this encounter [...] neuropathy weekly. ?? Refer to PCP and/or Technical Product Manager, Vascular Specialist as indicated. ?? Monitor [...] complication, without long-term current use of insulin (HCC)- Primary documented in this encounter Additional Health Concerns Assessment Noted Time A fall risk assessment has been complete d for the patient 11/08/2023 9:11 AM EST documented as of this encounter Care Teams Assembly Instructions Writer Relationship Specialty Start Date End Date Cristiane Shirley MD [address] [place] [address] PCP - General Family Medicine 08/20/18 12/29/23 Garett Holt MD Internal Medicine-Gastroenterology 12/22/12 Ruiz Stokes MD [address] [place], [place] [id number] Internal Medicine-Cardiovascular Disease 07/25/14 Yenny Schwab MD 651 [facility] 19 [place] [address] Internal Medicine-Rheumatology 12/11/16 documented as of this encounter
--- OUTSIDE RECORDS SUMMARY | 2024-07-22 15:57 | XMS_ITS | Encounter Summary ---
Author Organization [place] [address] Care Team Providers Care Subsystems Engineer Name Role Phone Garett Holt MD Unavailable [phone] Ruiz Stokes MD Unavailable [phone] Yenny Schwab MD Unavailable [phone] Cristiane Shirley MD Primary Care Provider [phone] Encounter Details Date Type Department Care Team (Late st Contact Info) Description 12/23/2023 Orders Only [facility] [address] [place] [address] Abel Pretty MD [address] [place], [place] [id number] Constipation, chronic (Primary Dx) Social History Tobacco Use Types [...] Date Recorded PHQ-2 Total Score 0 12/21/2022 [facility] - Occupational [...] Refills Last Filled Start Date End Date lubiprostone (AMITIZA) 24 mcg Oral CapsuleIndications :Constipation, chronic Take 1 Capsule by mouth 2 times daily (with meals) for 30 days. 60 Capsule 12/23/2023 documented in this encounter Plan of Treatment Upcoming Encounters Date Type Department Care Team (Late st Contact Info) Description 07/29/2024 9:00 AM EST [facility]ment [facility] [address] [facility] [place], [place] [id number] Jomar Kim MD [address] [place] [address] documented as of this encounter [...] neuropathy weekly. ?? Refer to PCP and/or Box Press Operator, Vascular Specialist as indicated. ?? Monitor [...] as of this encounter Visit Diagnoses Diagnosis Constipation, chronic- Primary Unspecified constipation documented in this encounter Discontinued Medications Medication Sig Discontinue Reason Start Date End Da te linaCLOtide (LINZESS) 145 mcg Oral CapsuleIndications:Const ipation, chronic Take 1 Capsule by mouth before breakfast. Cancelled by 12/15/2023 12/23/2023 plecanatide (TRULANCE) 3 mg Oral TabletIndications:Luis Alfredoi pation, chronic Take 1 Tablet by mouth daily. Cancelled by 12/15/2023 12/23/2023 documented as of this encounter Additional Health Concerns Assessment Noted Time A fall risk assessment has been complete d for the patient 11/08/2023 9:11 AM EST documented as of this encounter Care Teams Subsystems Engineer Relationship Specialty Start Date End Date Cristiane Shirley MD [address] [place] [id number] PCP - General Family Medicine 08/20/18 12/29/23 Garett Holt MD Internal Medicine-Gastroenterology 12/22/12 Ruiz Stokes MD [address] [place] [address] Internal Medicine-Cardiovascular Disease 07/25/14 Yenny Schwab MD 651 [facility] Building [address] [place] [address] Internal Medicine-Rheumatology 12/11/16 documented as of this encounter
--- OUTSIDE RECORDS SUMMARY | 2024-07-22 15:57 | XMS_ITS | Encounter Summary ---
Author Organization [facility] [place] [address] Care Team Providers Care Flying Squad Salesperson Name Role Phone Garett Holt MD Unavailable [phone] Ruiz Stokes MD Unavailable [phone] Yenny Schwab MD Unavailable [phone] Cristiane Shirley MD Primary Care Provider [phone] Encounter Details Date Type Department Care Team (Latest Contact Info) Description 12/12/2023 Travel Social History Tobacco Use Types Packs/Day [...] Date Recorded PHQ-2 Total Score 0 12/21/2022 [facility] [place] of Occupat ional Health - Occupational Stress [...] Lisa Patel MA documented in this encounter Plan of Treatment Upcoming Encounters Date Type Department Care Team (Late st Contact Info) Description 07/29/2024 9:00 AM EST Appointment [facility] [address] [place] [address] Jomar Kim MD [address] [place] [address] documented as of this encounter Goals Goal Patient Goal Type Associated Problems Recent Progress Patient-Stated? Author Blood Pressure < 140/90 Blood Pressure 110/72(04/09 2:44 PM EDT) No Rachel Rogers RMA BMI (Calculated) < 30 General 50.9(2023 2:44 PM EDT) No Rachel Rogers, MULU Eat better, exercise, reach an ideal body weight General No Ni Clinton, lace and textiles restorer Healing General On track(12/03 9:18 AM EDT) [...] neuropathy weekly. ?? Refer to PCP and/or Ukrainian Folk Arts Instructor, Vascular Specialist as indicated. ?? Monitor [...] documented as of this encounter Care Teams Flying Squad Salesperson Relationship Specialty Start Date End Date Cristiane Shirley MD [address] [place] [address] PCP - General Family Medicine 08/20/18 12/29/23 Garett Holt MD Internal Medicine-Gastroenterology 12/22/12 Ruiz Stokes MD [address] [place] [address] Internal Medicine-Cardiovascular Disease 07/25/14 Yenny Schwab MD [address] [address] Internal Medicine-Rheumatology 12/11/16 documented as of this encounter
--- OUTSIDE RECORDS SUMMARY | 2024-07-22 15:57 | XMS_ITS | Encounter Summary ---
Author Organization [place] [address] Care Team Providers Care Flat Surfacer Name Role Phone Garett Holt MD Unavailable [phone] Ruiz Stokes MD Unavailable [phone] Yenny Schwab MD Unavailable [phone] Cristiane Shirley MD Primary Care Provider [phone] Encounter Details Date Type Department Care Team (Latest Contact Info) Description 11/09/2023 3:15 PM EST [facility]illary [facility] [address] [address] Right foot pain Social History Tobacco Use Types Packs/Day Years [...] Date Recorded PHQ-2 Total Score 0 12/21/2022 [facility] of Occupat ional Health - Occupational Stress [...] 9:00 AM EST Appointment [facility] [address] [place], [place] [id number] Jomar Kim MD [address] [place] [address] documented as of this encounter Goals Goal Patient Goal Type Associated Problems Recent Progress Patient-Stated? Author Blood Pressure < 140/90 Blood Pressure 110/72(04/09 2:44 PM EDT) No Rachel Rogers RMA BMI (Calculated) < 30 General 50.9(2023 2:44 PM EDT) No Rachel Rogers RMA Eat better, exercise, reach an ideal body weight General No Ni Clinton, commercial collector Healing General On track(12/03 9:18 AM EDT) [...] neuropathy weekly. ?? Refer to PCP and/or Cvicu Nurse, Vascular Specialist as indicated. ?? Monitor patient [...] XR FOOT RIGHT AP LATERAL AND OBLIQUE Routine 11/09/2023 3:25 PM EST Right foot pain documented in this encounter Results * XR FOOT RIGHT AP LATERAL AND OBLIQUE (11/09/2023 3:25 PM EST) Anatomical Region Laterality Modality Foot Radiographic Faby ging 11/09/2023 3:25 PM EST Impressions 11/09/2023 3:32 PM EST No acute bony abnormality of the foot. - Note: Radiology results need to be interpreted within a comprehensive clinical context. ??If you have questions about the radiology report, please contact the office of the ordering clinician. Narrative 11/09/2023 3:32 PM EST XR FOOT RIGHT AP LATERAL AND OBLIQUE, ??11/09/2023 3:25 PM CLINICAL HISTORY: ??M79.671-Pain in right [id number] COMPARISON: ??None. PROCEDURE COMMENTS: XR FOOT RIGHT AP LATERAL AND OBLIQUE FINDINGS: There is no fracture or traumatic malalignment. Joint spaces overall well-maintained for age. No periostitis. Procedure Note Uzair Freeman MD - 11/09/2023 XR FOOT RIGHT AP LATERAL AND OBLIQUE, 11/09/2023 3:25 PM CLINICAL HISTORY: M79.671-Pain in right [id number] COMPARISON: None. PROCEDURE COMMENTS: XR FOOT RIGHT AP LATERAL AND OBLIQUE FINDINGS: There is no fracture or traumatic malalignment. Joint spaces overall well-maintained for age. No periostitis. IMPRESSION: No acute bony abnormality of the foot. - Note: Radiology results need to be interpreted within a comprehensiveclinical context. If you have questions about the radiology report, please contactthe office of the ordering clinician. us Abel Pretty MD [facility]G DIAGNOST[facility] IMAGING ORDERABLES Final Result documented in this encounter Visit Diagnoses Diagnosis Right foot pain Pain in limb documented in this encounter Additional Health Concerns Assessment Noted Time A fall risk assessment has been complete d for the patient 11/08/2023 9:11 AM EST documented as of this encounter Care Teams Flat Surfacer Relationship Specialty Start Date End Date Cristiane Shirley MD [address] [place] [address] PCP - General Family Medicine 08/20/18 12/29/23 Garett Holt MD Internal Medicine-Gastroenterology 12/22/12 Ruiz Stokes MD [address] [place] [address] Internal Medicine-Cardiovascular Disease 07/25/14 Yenny Schwab MD 651 [facility] 19 [place], [place] [phone] Internal Medicine-Rheumatology 12/11/16 documented as of this encounter
--- OUTSIDE RECORDS SUMMARY | 2024-07-22 15:57 | XMS_ITS | Encounter Summary ---
Author Organization [place] [address] Care Team Providers Care Analytical Scientist Name Role Phone Garett Holt MD Unavailable [phone] Ruiz Stokes MD Unavailable [phone] Yenny Schwab MD Unavailable [phone] Cristiane Shirley MD Primary Care Provider [phone] Reason for Visit * Reason Onset Date Comments Chest Pain 12/12/2023 Encounter Details Date Type Department Care Team (Late st Contact Info) Description 12/12/2023 Nurse Triage [facility] Nurse Now [facility] [place] [address] Sheree Sanchez, MATT Social History Tobacco Use Types Packs/Day Years [...] Recorded PHQ-2 Total Score 0 12/21/2022 [facility] Occupat ional Health - [...] encounter Miscellaneous Notes * Telephone Encounter - Sheree Sanchez RN - 12/12/2023 10:58 AM EDT Nurse Triage Call -Chief Complaint: SOB at rest, chest pain stabbing since 629, arms/legs swelling -Reported by: Patient -Disposition per protocol: Call 911 now -Follow up/Concerns: With and daughter, will call now. Reason for Disposition Chest pain lasting longer than 5 minutes and ANY of the following:* Over 45 years old* Over 30 years old and at least one cardiac risk factor (e.g., diabetes, high blood pressure, high cholesterol, smoker, or strong family history of heart disease)* History of heart disease (i.e., angina, heart attack, heart failure, bypass surgery, takes nitroglycerin)* Pain is crushing, pressure- like, or heavy Answer Assessment - Initial Assessment Questions 1. LOCATION: Where does it hurt? stabbing in upper chest 2. RADIATION: Does the pain go anywhere else? (e.g., into neck, jaw, arms, back) *No Answer* 3. ONSET: When did the chest pain begin? (Minutes, hours or days) *No Answer* 4. PATTERN Does the pain come and go, or has it been constant since it started? Does it get worse with exertion? come and go 5. DURATION: How long does it last (e.g., seconds, minutes, hours) a few days 6. SEVERITY: How bad is the pain? (e.g., Scale 1-10; mild, moderate, or severe) - MILD (1-3): doesn't interfere with normal activities - MODERATE (4-7): interferes with normal activities or awakens from sleep - SEVERE (8-10): excruciating pain, unable to do any normal activities *No Answer* 7. CARDIAC RISK FACTORS: Do you have any history of heart problems or risk factors for heart disease? (e.g., angina, prior heart attack; diabetes, high blood pressure, high cholesterol, smoker, or strong family history of heart disease) *No Answer* 8. PULMONARY RISK FACTORS: Do you have any history of lung disease? (e.g., blood clots in lung, asthma, emphysema, control pills) *No Answer* 9. CAUSE: What do you think is causing the chest pain? *No Answer* 10. OTHER SYMPTOMS: Do you have any other symptoms? (e.g., dizziness, nausea, vomiting, sweating,fever, difficulty breathing, cough) SOB at rest 11. : Is there any chance you are ? When was your last menstrual period? Protocols used: Chest Pain-A-OH documented in this encounter Plan of Treatment Upcoming Encounters Date Type Department Care Team (Late st Contact Info) Description 07/29/2024 9:00 AM EST Appointment [facility] [address] [place] [address] Jomar Kim MD [address] [place] [address] documented as of this encounter Goals Goal Patient Goal Type Associated Problems Recent Progress Patient-Stated? Author Blood Pressure < 140/90 Blood Pressure 110/72(04/09 2:44 PM EDT) No Rachel Rogers, RMA BMI (Calculated) < 30 General 50.9(2023 2:44 PM EDT) No Rachel Rogers RMA Eat better, exercise, reach an ideal body weight General No Ni Clinton, floor polisher Healing General On track(12/03 9:18 AM EDT) [...] neuropathy weekly. ?? Refer to PCP and/or Gig Tender, Vascular Specialist as indicated. ?? Monitor [...] documented as of this encounter Care Teams Analytical Scientist Relationship Specialty Start Date End Date Cristiane Shirley MD [address] [place] [address] PCP - General Family Medicine 08/20/18 12/29/23 Garett Holt MD Internal Medicine-Gastroenterology 12/22/12 Ruiz Stokes MD [address] [place] [id number] Internal Medicine-Cardiovascular Disease 07/25/14 Yenny Schwab MD [address] [place] [id number] Internal Medicine-Rheumatology 12/11/16 documented as of this encounter
--- OUTSIDE RECORDS SUMMARY | 2024-07-22 15:57 | XMS_ITS | Encounter Summary ---
Author Organization [place] [address] Care Team Providers Care Air Director Name Role Phone Garett Holt MD Unavailable [phone] Ruiz Stokes MD Unavailable [phone] Yenny Schwab MD Unavailable [phone] Cristiane Shirley MD Primary Care Provider [phone] Reason for Visit * Reason Onset Date Comments Release of Information 11/19/2023 verify me dical diagnoses Encounter Details Date Type Department Care Team (Late st Contact Info) Description 11/19/2023 Telephone [facility] [address] [place] [address] Cristiane Shirley MD [address] [place], [place] [id number] Release of Information (verify medical diagnoses) Social History Tobacco Use Types Packs/Day Years [...] Date Recorded PHQ-2 Total Score 0 12/21/2022 [facility] Occupat ional [facility] - Occupational Stress Questionnaire Answer [...] Telephone Encounter - Elkin Barfield RMA - 11/19/2023 4:32 PM EDT Called main number for [employer], via internet. They stated they do not have any record of anyone calling our office and do not have Alyssa as a Pt. Unable to return call without a number. * Telephone Encounter - Ana Corral - 11/19/2023 2:57 PM EDT Select the most appropriate reason for this telephone message: Other Who is calling (name & relationship to patient if not the patient): [facility] What is needed OR why are they calling: Calling to confirm diagnoses of diabetes,hypertension and CHF. When is this needed by: yodit Where does this information need to go: Dr. Shirley Additional information: Please advise. I lost the number that was given when trying to erase other info and I was not able to recover it. documented in this encounter Plan of Treatment Upcoming Encounters Date Type Department Care Team (Late st Contact Info) Description 07/29/2024 9:00 AM EST Appointment [facility] [address] [place] [address] Jomar Kim MD [address] [place] [address] documented as of this encounter Goals Goal Patient Goal Type Associated Problems Recent Progress Patient-Stated? Author Blood Pressure < 140/90 Blood Pressure 110/72(04/09 2:44 PM EDT) No Rachel Rogers, RMA BMI (Calculated) < 30 General 50.9(2023 2:44 PM EDT) No Rachel Rogers, RMA Eat better, exercise, reach an ideal body weight General No Ni Clinton, sales and leasing agent Healing General On track(12/03 9:18 AM EDT) [...] neuropathy weekly. ?? Refer to PCP and/or Embroiderer Hand, Vascular Specialist as indicated. ?? Monitor patient [...] documented as of this encounter Care Teams Air Director Relationship Specialty Start Date End Date Cristiane Shirley MD [address] [place], [place] [phone] PCP - General Family Medicine 08/20/18 12/29/23 Garett Holt MD Internal Medicine-Gastroenterology 12/22/12 Ruiz Stokes MD [address] [place] [address] Internal Medicine-Cardiovascular Disease 07/25/14 Yenny Schwab MD [address] [address] Internal Medicine-Rheumatology 12/11/16 documented as of this encounter
--- OUTSIDE RECORDS SUMMARY | 2024-07-22 15:57 | XMS_ITS | Encounter Summary ---
Author Organization [place] [address] Care Team Providers Care Fabric Worker Leader Name Role Phone Garett Holt MD Unavailable [phone] Ruiz Stokes MD Unavailable [phone] Yenny Schwab MD Unavailable [phone] Abel Pretty MD Primary Care Provider Reason for Visit * Reason Onset Date Comments Other 12/30/2023 Red Flag Encounter Details Date Type Department Care Team (Late st Contact Info) Description 12/30/2023 Telephone [facility] [address] [place] [address] Cristiane Shirley MD [address] [place], [place] [phone] Other (Red Flag) Social History Tobacco Use Types Packs/Day Years [...] Date Recorded PHQ-2 Total Score 0 12/21/2022 [facility] of Occupat ional Health - Occupational Stress [...] Telephone Encounter - Roslyn Calabrese RMA - 12/30/2023 4:44 PM EDT Pt daughter aware * Telephone Encounter - Abel Pretty MD - 12/30/2023 3:34 PM EDT We can definitely discuss ordering appropriate tests including an echo at her appointment. She can have an earlier appointment if she prefers. * Telephone Encounter - Roslyn Calabrese RMA - 12/30/2023 1:45 PM EDT Spoke with patient daughter Clementina. She stated she is waiting until Friday to take her. She said the shortness of breath is off and on mainly when walking. States she knows when to call 911. She also wanted Dr. Pretty to know that her right leg is draining with bloody drainage and wants to speak with Dr. Pretty about ordering an Echocardiogram due to pt having swelling in her feet. * Telephone Encounter - Castillo Marmolejo COA - 12/30/2023 1:27 PM EDT Select the most appropriate reason for this telephone message: 911 Emergency Who is calling (be specific): Other Daughter Symptoms/Situation: SOB off and on Were emergency services dispatched: No If No, was the patient advised to call 911 or proceed to the nearest emergency department if they are experiencing a life threatening condition: Yes Additional Notes: documented in this encounter Plan of Treatment Upcoming Encounters Date Type Department Care Team (Late st Contact Info) Description 07/29/2024 9:00 AM EST Appointment [facility] [address] [place] [address] Jomar Kim MD [address] [place] [address] documented as of this encounter Goals Goal Patient Goal Type Associated Problems Recent Progress Patient-Stated? Author Blood Pressure < 140/90 Blood Pressure 110/72(04/09 2:44 PM EDT) No Rachel Rogers RMA BMI (Calculated) < 30 General 50.9(2023 2:44 PM EDT) No Rachel Rogers RMA Eat better, exercise, reach an ideal body weight General No Ni Clinton, precipitation equipment tender Healing General On track(12/03 9:18 AM EDT) [...] neuropathy weekly. ?? Refer to PCP and/or Crystal Machining Coordinator, Vascular Specialist as indicated. ?? Monitor patient [...] documented as of this encounter Care Teams Fabric Worker Leader Relationship Specialty Start Date End Date Abel Pretty MD [address] [place] [address] PCP - General Family Medicine 12/30/23 Garett Holt MD Internal Medicine-Gastroenterology 12/22/12 Ruiz Stokes MD [address] [place] [address] Internal Medicine-Cardiovascular Disease 07/25/14 Yenny Schwab MD [address] [address] Internal Medicine-Rheumatology 12/11/16 documented as of this encounter
--- OUTSIDE RECORDS SUMMARY | 2024-07-22 15:57 | XMS_ITS | Encounter Summary ---
Author Organization [place] [address] Care Team Providers Care Covering Machine Operator Helper Name Role Phone Garett Holt MD Unavailable [phone] Ruiz Stokes MD Unavailable [phone] Yenny Schwab MD Unavailable [phone] Abel Pretty MD Primary Care Provider Reason for Visit * Reason Onset Date Comments Orders 01/01/2024 half-way Encounter Details Date Type Department Care Team (Late st Contact Info) Description 01/01/2024 Telephone [facility] [address] [place] [address] Abel Pretty MD [address] [place], [place] [id number] Orders (half-way) Social History Tobacco Use Types Packs/Day Years [...] PHQ-2 Total Score 0 01/03/2024 [facility] - Occupational [...] Telephone Encounter - Abel Pretty MD - 01/01/2024 10:54 AM EDT Will discuss at appointment in 2 days * Telephone Encounter - Ana Corral - 01/01/2024 9:46 AM EDT Select the most appropriate reason for this telephone message: Order Request Who is requesting the Order(s): Daughter-Jessica What Orders are being requested: [facility] Reason Orders are Needed (Diagnosis): Difficulty walking,sugar control Is a verbal order being requested: Yes If non-[facility] facility, where should the order be faxed (include fax number): n/a Is this for in-patient or home health: Home Health (Frequency: n/a) Additional Notes: [facility] documented in this encounter Plan of Treatment Upcoming Encounters Date Type Department Care Team (Late st Contact Info) Description 07/29/2024 9:00 AM EST Appointment [facility] [address] [place] [id number] Jomar Kim MD [address] [place] [address] documented as of this encounter Goals Goal Patient Goal Type Associated Problems Recent Progress Patient-Stated? Author Blood Pressure < 140/90 Blood Pressure 110/72(04/09 2:44 PM EDT) No Rachel Rogers, RMA BMI (Calculated) < 30 General 50.9(2023 2:44 PM EDT) No Rachel Rogers, RMA Eat better, exercise, reach an ideal body weight General No Ni Clinton, supervisor vacuum metalizing Healing General On track(12/03 9:18 AM EDT) [...] neuropathy weekly. ?? Refer to PCP and/or Hand Quilter, Vascular Specialist as indicated. ?? Monitor patient [...] 5.6( 024 3:04 PM EST) No Rachel Rogers, RMA documented as of this encounter Visit Diagnoses Not on filedocumented in this encounter Additional Health Concerns Assessment Noted Time A fall risk assessment has been complete d for the patient 11/08/2023 9:11 AM EST documented as of this encounter Care Teams Covering Machine Operator Helper Relationship Specialty Start Date End Date Abel Pretty MD [address] [place] [address] PCP - General Family Medicine 12/30/23 Garett Holt MD Internal Medicine-Gastroenterology 12/22/12 Ruiz Stokes MD [address] [place] [id number] Internal Medicine-Cardiovascular Disease 07/25/14 Yenny Schwab MD [address] [id number] Internal Medicine-Rheumatology 12/11/16 documented as of this encounter
--- OUTSIDE RECORDS SUMMARY | 2024-07-22 15:57 | XMS_ITS | Encounter Summary ---
Author Organization [place] [address] Care Team Providers Care Oven Drier Tender Name Role Phone Garett Holt MD Unavailable [phone] Ruiz Stokes MD Unavailable [phone] Yenny Schwab MD Unavailable [phone] Cristiane Shirley MD Primary Care Provider [phone] Reason for Visit * Reason Onset Date Comments Medication Management 12/15/2023 linaCLOtid e (LINZESS) Encounter Details Date Type Department Care Team (Late st Contact Info) Description 12/15/[address] [facility] [address] [place] [address] Cristiane Shirley MD [address] [place], [place] [id number] Medication Management (linaCLOtide (LINZESS) ) Social History Tobacco Use Types Packs/Day [...] Date Recorded PHQ-2 Total Score 0 12/21/2022 [facility] - Occupational Stress Questionnaire Answer Date [...] Refills Last Filled Start Date End Date plecanatide (TRULANCE) 3 mg Oral TabletIndications: Constipation, chronic Take 1 Tablet by mouth daily. 30 Tablet 2 12/15/2023 12/23/2023 documented in this encounter Miscellaneous Notes * Telephone Encounter - Bre Patel MA - 12/15/2023 3:38 PM EDT spoke to pts * Telephone Encounter - Abel Pertty MD - 12/15/2023 1:22 PM EDT Trulance sent in instead * Telephone Encounter - Antonio Oliva - 12/15/2023 12:04 PM EDT Select the most appropriate reason for this telephone message: Medication Management/Problem Who is calling? Other pt. spouse What medication(s) do you have concerns about: linaCLOtide (LINZESS) 145 mcg Oral Capsule 30 Capsule 2 12/15/2023 -- Sig - Route: Take 1 Capsule by mouth before breakfast. - Oral Sent to pharmacy as: linaCLOtide 145 mcg capsule (LINZESS) Prescribing provider: Dr. Pretty What are your concerns/request: pt. spouse states that med cost $500 Desired outcome: Change in medication Last appointment date: 12/15/23 Pharmacy: [facility] [place] [phone] - [phone] [place] [address] Additional notes: please advise documented in this encounter Plan of Treatment Upcoming Encounters Date Type Department Care Team (Late st Contact Info) Description 07/29/2024 9:00 AM EST Appointment [facility] [address] [place], [place] [id number] Jomar Kim MD [address] [place] [address] documented as of this encounter Goals Goal Patient Goal Type Associated Problems Recent Progress Patient-Stated? Author Blood Pressure < 140/90 Blood Pressure 110/72(04/09 2:44 PM EDT) No Rachel Rogers RMA BMI (Calculated) < 30 General 50.9(2023 2:44 PM EDT) No Rachel Rogers RMA Eat better, exercise, reach an ideal body weight General No Ni Clinton, associate professor of music Healing General On track(12/03 9:18 AM EDT) [...] neuropathy weekly. ?? Refer to PCP and/or Bench Worker Binding, Vascular Specialist as indicated. ?? Monitor patient [...] this encounter Visit Diagnoses Diagnosis Lower extremity edema- Primary Edema Constipation, chronic Unspecified constipation documented in this encounter Additional Health Concerns Assessment Noted Time A fall risk assessment has been complete d for the patient 11/08/2023 9:11 AM EST documented as of this encounter Care Teams Oven Drier Tender Relationship Specialty Start Date End Date Cristiane Shirley MD [address] [place] [id number] PCP - General Family Medicine 08/20/18 12/29/23 Garett Holt MD Internal Medicine-Gastroenterology 12/22/12 Ruiz Stokes MD [address] [place] [id number] Internal Medicine-Cardiovascular Disease 07/25/14 Yenny Schwab MD [address] [place] [id number] Internal Medicine-Rheumatology 12/11/16 documented as of this encounter
--- OUTSIDE RECORDS SUMMARY | 2024-07-22 15:57 | XMS_ITS | Encounter Summary ---
Author Organization [place] [address] Care Team Providers Care Shuttle Truck Driver Name Role Phone Garett Holt MD Unavailable [phone] Ruiz Stokes MD Unavailable [phone] Yenny Schwab MD Unavailable [phone] Cristiane Shirley MD Primary Care Provider [phone] Reason for Visit * Reason Comments Leg Swelling leg swelling, shortn ess of breath earlier headache. Encounter Details Date Type Department Care Team (Late st Contact Info) Description 12/12/2023 2:43 PM EDT - 12/12/2023 7:46 PM EDT [facility] [address] [place] [id number] Sarai Kellogg MD [address] [facility] [id number] Bilateral lower extremity edema (Primary Dx); Chest pain, unspecified type; Suprapubic abdominal pain Discharge Disposition: Home or Self Care Social [...] Date Recorded PHQ-2 Total Score 0 12/21/2022 [facility] - [facility]ational Stress Questionnaire Answer Date [...] Sign Reading Time Taken Comments Blood Pressure 122/50 12/12/2023 7:17 PM EDT Pulse 70 12/12/2023 7:17 PM EDT Temperature 36.7 ??C (98 ??F) 12/12/2023 2:45 PM EDT Respiratory Rate 16 12/12/2023 7:17 PM EDT Oxygen Saturation 99% 12/12/2023 2:17 PM EDT Inhaled Oxygen Concentration - - Weight - - Height - - Body Mass Index - - documented in this encounter Functional Status * [...] Patel MA * Does this person have serious [...] Lisa Mccartney MA documented in this encounter Discharge Instructions * Discharge Instructions* Aleena Hwang PA-C - 12/12/2023 6:51 PM EDT Continue taking your medications as prescribed. As discussed, heating pad may be helpful with lowerextremity cramping. Additionally, may initiate 400 mg of magnesium each night to assist with musclecramping and constipation. Follow-up with your primary care provider for reevaluation. Return for any new or worsening concerning symptoms. documented in this encounter Medications at Time [...] by mouth daily. 90 Tablet 2 02/10/2023 Blood Sugar Diagnostic [place] StripIndications: Type 2 diabetes mellitus without complication, without long-term current use of insulin ([facility]) 1 Strip by [place].(Non-Drug; Combo Route) route 2 times daily. Per formulary. Dx: E11.9 100 Each 11 08/05/2022 Blood-Glucose Meter [place] KitIndications:Ty pe 2 diabetes mellitus without complication, without long-term current use of insulin ([facility]) Per formulary. Dx. E11.9 1 Kit 08/05/2022 Blood-Glucose Meter,Continuous (DEXCOM G7 X RAY OPERATOR) [place] MiscIndications:T ype 2 diabetes mellitus without complication, without long-term current use of insulin ([facility]),Severe diabetic hypoglycemia (HCC) 1 Each by [place].(Non-Drug; Combo Route) route as needed. 1 Each 11 06/27/2023 Blood-Glucose Sensor (DEXCOM G7 SENSOR) [place] DeviceIndications :Type 2 diabetes mellitus without complication, without long-term current use of insulin ([facility]),Severe diabetic hypoglycemia (HCC) 1 Each by [place].(Non-Drug; Combo Route) route as needed. 1 Each 06/27/2023 CALCIUM ORAL Take 1 Tab by mouth daily. cholecalciferol, vitamin D3, (VITAMIN D3) 25 mcg (1,000 unit) Oral Tablet Take 1 Tab by mouth daily. 30 Tab 11 09/14/2019 dapagliflozin propanediol (FARXIGA) 10 mg Oral TabletIndications :Type 2 diabetes mellitus without complication, without long-term current use of insulin ([facility]) Take 1 Tablet by mouth daily. 30 Tablet 2 11/08/2023 docusate sodium (COLACE) 100 mg Oral Capsule Take 1 Capsule by mouth 2 times daily. 60 Capsule 2 03/31/2023 empagliflozin (JARDIANCE) 10 mg Oral Tablet Take 1 Tablet by mouth daily. 21 Tablet 10/28/2023 fluticasone propionate (FLONASE) 50 mcg/actuation Nasl [place], SuspensionIndicat ions:ETD (Eustachian tube dysfunction), right Use 1 spray(s) in each nostril once daily 16 g 10/17/2022 Lancets [place] MiscIndications:T ype 2 diabetes mellitus without complication, without long-term current use of insulin (HCC) 1 Each by [place].(Non-Drug; Combo Route) route 2 times daily. Per formulary. Dx: E11.9 100 Each 11 08/05/2022 loratadine (CLARITIN) 10 mg Oral TabletIndications :Seasonal allergic rhinitis due to pollen Take 1 tablet by mouth once daily 63 Tablet 12/24/2021 meloxicam (MOBIC) 15 mg Oral TabletIndications :Bilateral hip pain Take 1 tablet by mouth once daily 30 Tablet 11/17/2023 Nebulizer Accessories [place] KitIndications:Ac kamila bronchitis, unspecified organism Nebulizer accessories [...] 07/19/2023 ONETOUCH DELICA PLUS LANCET 33 gauge [facility] USE TO CHECK GLUCOSE TWICE DAILY [...] 2 times daily. 60 Tablet 5 06/09/2023 atorvastatin (LIPITOR) 20 mg Oral Tablet Take 1 Tablet by mouth daily. 30 Tablet 2 05/27/2023 4 fUROsemide (LASIX) 40 mg Oral TabletIndications :Lower extremity edema,Venous stasis dermatitis of left lower extremity One tab daily and may take an extra if needed. 60 Tablet 2 05/27/2023 4 glipiZIDE (GLUCOTROL) 5 mg Oral TabletIndications :Type 2 diabetes mellitus without complication, without long-term current use of insulin (HCC) Take 1 Tablet by mouth daily. 30 Tablet 2 11/10/2023 4 documented as of this encounter Discharge Disposition Disposition Code Departure Means Destination Comment s Home or Self Longterm documented in this encounter ED Notes * Roslyn Stratton RN - 12/12/2023 7:45 PM EDT Discharge instructions reviewed with pt. Pt understands discharge instructions given, and all questions answered. * Aleena Hwang PA-C - 12/12/2023 2:[address] [facility] EMERGENCY DEPARTMENT ENCOUNTER Pt Name: Alyssa Campos Birthdate 1955 Date of evaluation: 12/13/2023 CHIEF COMPLAINT Chief Complaint Patient presents with Leg Swelling leg swelling, shortness of breath earlier headache. The patient is seen for Dr. Kellogg HISTORY OF PRESENT ILLNESS Alyssa Campos is a 68 y.o. female with PMH significant for history of endometrial cancer status post complete hysterectomy in 2014, obstructive sleep apnea, type 2 diabetes, class III obesity who presents emergency department for evaluation. Patient somewhat of a difficult historian. She is accompanied by her son who also helps provide history. Patient resides in residence with her and son. Patient's son tells me that since an admission in June secondary to diabetic coma at [facility] patient has been feeling unwell with complaints of lower extremity pain and swelling, intermittent left- sided chest pain, intermittent shortness of breath and intermittent lightheadedness. Symptoms seem to worsen today when patient got up from bed and attempted to ambulate to the bathroomwith the use of her walker and became significantly dyspneic and lightheaded. At this time she alsodeveloped a headache. Headache lasted for about 20 minutes in nature and then completely dissipated. She is not currently experiencing a headache. States that she will occasionally get a headache andtoday headache symptoms felt similar to headaches that she is experienced in the past. Denies thunderclap type onset of headache and the notion that this was this was the worst headache of her life. She reports that additionally she has been experiencing chest pain intermittently for many months but has been experiencing worsening left-sided chest pain for the last 3 days. States that chest pain is not necessarily exertional and denies any pleuritic component of pain. Additionally notes somewhat chronic lower abdominal and medial thigh pain which seem to worsen today and was associated with some spasms throughout her lower extremities per her son at bedside. Patient does receive in-home therapy as well as home health. Her also receives the services. Her home health provider today noted worsened lower extremity swelling and shortness of breath and was concern for possible fluid ov erload and therefore did recommend the patient come to the hospital for further evaluation. Patientdenies any recent fevers, nausea, vomiting, diarrhea, cough, URI symptoms, hemoptysis, focal calf pain or unilateral calf swelling, history of DVT or PE, anticoagulation use, recent falls or traumas.She and her son at bedside tell me that she has been ambulatory at baseline at home and is able to complete her ADLs especially with the assistance of home health and therapy although it was recommended following a recent admission that she go to rehabilitation she feels as though she is doing wellat home does not feel that she needs further assistance. REVIEW OF SYSTEMS Review of Systems Constitutional: Positive for malaise/fatigue. Respiratory: Positive for shortness of breath. Negative for cough, hemoptysis and sputum production. Cardiovascular: Positive for chest pain and leg swelling. Negative for palpitations, orthopnea and claudication. Gastrointestinal: Positive for abdominal pain. Negative for blood in stool, constipation, diarrhea,nausea and vomiting. Genitourinary: Negative. All other systems reviewed and negative PAST MEDICAL HISTORY Past Medical History: Diagnosis [...] WEAR CPAP OR BIPAP PER PATIENT Ulcer SURGICAL HISTORY has a past surgical history that includes Colonoscopy; Upper gastrointestinal endoscopy; Upper gastrointestinal endoscopy (02/17/2013); Colonoscopy (02/17/2013); Cholecystectomy (1989); Cardiac Catheterization (04/2015); Dental surgery; Artery Biopsy (Right, 01/06/2017); ventral hernia repair (N/A, 2019); and Upper gastrointestinal endoscopy (N/A, 07/26/2020). CURRENT MEDICATIONS No current facility-administered medications for [...] for Wheezing., Disp: 1 box, Rfl: 6 amLODIPine (NORVASC) 10 mg Oral Tablet, Take 1 Tablet by mouth daily., Disp: 91 Tablet, Rfl: 1 aspirin 81 mg Oral Tablet, Delayed Release (E.C.), Take 1 Tablet by mouth daily., Disp: 90 Tablet, Rfl: 2 atorvastatin (LIPITOR) 20 mg Oral Tablet, Take 1 Tablet by mouth daily., Disp: 30 Tablet, Rfl: 2 Blood Sugar Diagnostic Misc Strip, 1 Strip by Misc.(Non-Drug; Combo Route) route 2 times daily. Performulary. Dx: E11.9, Disp: 100 Each, Rfl: 11 Blood-Glucose Meter Misc Kit, Per formulary. Dx. E11.9, Disp: 1 Kit, Rfl: 0 Blood-Glucose Meter,Continuous (DEXCOM G7 X RAY OPERATOR) Misc Misc, 1 Each by Misc.(Non-Drug; Combo Route) route as needed., Disp: 1 Each, Rfl: 11 Blood-Glucose Sensor (DEXCOM G7 SENSOR) Mis Device, 1 Each by Mis.(Non-Drug; Combo Route) route as needed., Disp: 1 Each, Rfl: 11 CALCIUM ORAL, Take 1 Tab by mouth daily., Disp: , Rfl: cholecalciferol, vitamin D3, (VITAMIN D3) 25 mcg (1,000 unit) Oral Tablet, Take 1 Tab by mouth daily., Disp: 30 Tab, Rfl: 11 dapagliflozin propanediol (FARXIGA) 10 mg Oral Tablet, Take 1 Tablet by mouth daily., Disp: 30 Tablet, Rfl: 2 dapagliflozin propanediol (FARXIGA) 10 mg Oral Tablet, Take 1 Tablet by mouth daily., Disp: 30 Tablet, Rfl: 2 docusate sodium (COLACE) 100 mg Oral Capsule, Take 1 Capsule by mouth 2 times daily., Disp: 60 Capsule, Rfl: 2 empagliflozin (JARDIANCE) 10 mg Oral Tablet, Take 1 Tablet by mouth daily., Disp: 21 Tablet, Rfl: 0 fluticasone propionate (FLONASE) 50 mcg/actuation Nasl [place], Suspension, Use 1 spray(s) in each nostril once daily, Disp: 16 g, Rfl: 0 fUROsemide (LASIX) 40 mg Oral Tablet, One tab daily and may take an extra if needed., Disp: 60 Tablet, Rfl: 2 glipiZIDE (GLUCOTROL) 5 mg Oral Tablet, Take 1 Tablet by mouth daily., Disp: 30 Tablet, Rfl: 2 Lancets [place] Misc, 1 Each by Misc.(Non-Drug; Combo Route) route 2 times daily. Per formulary. Dx: E11.9, Disp: 100 Each, Rfl: 11 lisinopriL (PRINIVIL;ZESTRIL) 10 mg Oral Tablet, , Disp: , Rfl: loratadine (CLARITIN) 10 mg Oral Tablet, Take 1 tablet by mouth once daily, Disp: 63 Tablet, Rfl: 0 meloxicam (MOBIC) 15 mg Oral Tablet, Take 1 tablet by mouth once daily, Disp: 30 Tablet, Rfl: 0 Nebulizer Accessories [place] Kit, Nebulizer accessories, Disp: 1 Kit, Rfl: 0 olopatadine (PATANOL) 0.1 % Opht Drops, Place 1 Drop into both eyes 2 times daily. Administer dropsin both eyes., Disp: 5 mL, Rfl: 0 ondansetron (ZOFRAN-ODT) 4 mg Oral Tablet, Rapid Dissolve, Take 1 Tablet by mouth every 8 hours as needed for Nausea., Disp: 15 Tablet, Rfl: 0 ONETOUCH DELICA PLUS LANCET [facility] [place], USE TO CHECK GLUCOSE TWICE DAILY, Disp: , Rfl: oxybutynin (DITROPAN-XL) 10 mg Oral Tablet Extended Rel 24 hr, Take 1 Tablet by mouth daily., Disp:90 Tablet, Rfl: 2 pantoprazole (PROTONIX) 40 mg Oral Tablet, Delayed Release (E.C.), Take 1 Tablet by mouth daily., Disp: 90 Tablet, Rfl: 0 spironolactone (ALDACTONE) 25 mg Oral Tablet, Take [...] Magnesium] Hives and Rash Blisters in Mouth FAMILY HISTORY She indicated that her mother is . She indicated that her father is . She indicatedthat her sister is alive. She indicated that her brother is alive. She indicated that her maternal grandmother is . She indicated that the status of her neg hx is unknown. family history includes Cancer in her maternal grandmother; Cataracts in her father; Colon Cancer in her maternal grandmother; Diabetes in her father; Heart Disease in her father. SOCIAL HISTORY reports that she quit smoking about 39 years ago. Her smoking use included cigarettes. She started smoking about 52 years ago. She has a 19.5 pack-year smoking history. She has been exposed to tobacco smoke. She has never used smokeless tobacco. She reports that she does not drink alcohol and does not use drugs. PHYSICAL EXAM INITIAL VITALS: oral temperature is 98 ??F (36.7 ??C). Her blood pressure is 122/50 and her pulse is 70. Her respiration is 16 and oxygen saturation is 99%. Physical Exam Vitals and nursing note reviewed. Constitutional: General: She is not in acute distress. Appearance: Normal appearance. She is not ill-appearing or toxic-appearing. Comments: Elevated BMI HENT: Head: Normocephalic and atraumatic. Eyes: Extraocular Movements: Extraocular movements intact. Conjunctiva/sclera: Conjunctivae normal. Cardiovascular: Rate and Rhythm: Normal rate and regular rhythm. Pulses: Normal pulses. Radial pulses are 2+ on the right side and 2+ on the left side. Dorsalis pedis pulses are 2+ on the right side and 2+ on the left side. Heart sounds: Normal heart sounds. No murmur heard. No friction rub. Pulmonary: Effort: Pulmonary effort is normal. No respiratory distress. Breath sounds: Normal breath sounds. No wheezing, rhonchi or rales. Abdominal: General: Bowel sounds are normal. There is no distension. Palpations: Abdomen is soft. There is no mass. Tenderness: There is abdominal tenderness (Suprapubic area). There is no guarding or rebound. Musculoskeletal: Cervical back: Normal range of motion and neck supple. Comments: Patient reports somewhat diffuse tenderness throughout her lower extremities although I am not able to appreciate any unilateral swelling, focal calf tenderness or palpable cords. She does have some very slight, 1+ pitting edema noted to bilateral ankles. Dorsalis pedis pulses are intact.Able to freely move lower extremities without discomfort. No joint space swelling or warmth. Skin: General: Skin is warm and dry. Comments: Skin exam completed with RN at bedside. No rashes, erythema, warmth or skin lesions notedto the abdomen, back, lower extremities or groin. Neurological: General: No focal deficit present. Mental Status: She is alert and oriented to person, place, and time. MEDICAL DECISION MAKING Patient presents emergency department for evaluation as detailed above. She presents with multiple complaints which seem to be acute on chronic in nature. Her vital signs are stable and she is afebrile upon arrival. Given patient's complaints I did discuss recommendations for laboratory workup, vascular ultrasounds of the lower extremity, CT angiogram of the chest in order to rule out pulmonary embolism as well as CT evaluation of the abdomen and pelvis given patient's complaints of abdominal pain. She is given morphine and Zofran for symptomatic management. Her presentation was discussed with my attending physician following initial evaluation and she is comfortable with plans for workup. Patient's laboratory workup is overall very reassuring. Her EKG was interpreted by my attending physician and reviewed by this PA. Normal sinus rhythm without acute ischemic changes. 0 and 2-hour troponins are stable at 7 and 8 respectively. proBNP well within normal limits at 200 and CTA of the chest is negative for any acute abnormalities. No exertional chest pain, diaphoresis or nausea per patient with chest pain that has been ongoing for months now. I do have low suspicion for ACS. Patient does follow with cardiology and was most recently evaluated by them 08/26/2023 as a new patient withcomplaints of palpitations, left-sided chest pain, lower abdominal and leg pain and shortness of breath as well as edema similar to the complaints that she is experiencing today. At that time cardiology also felt that chest pain was atypical for angina. With recommendations for a 24-hour Holter with primary rhythm of sinus rhythm, average heart rate of 60 bpm, small amount of SVE's and PVCs. It was also recommended that she have an echocardiogram which has not yet been completed and follow-up when testing was completed in 6 to 8 weeks. This is discussed with patient and son at bedside as wellas recommendations for follow- up with cardiology. I do not feel that her chest pain requires admission today given lack of chest pain in the emergency department, chronicity of symptoms and low suspicion for ACS at this time. Urinalysis, lipase, renal function all reassuring. Negative CT of the abdomen and pelvis as well asnegative vascular ultrasound. On repeat evaluation patient is resting comfortably. Pain is improvedfollowing administration of pain medication in the ER. I discussed reassuring nature of workup withboth patient and her son at bedside. Given patient's age, stated complaints I did offer admission but at this time patient would like to decline. I did stress the importance of close follow-up with PCP and cardiology on outpatient basis. Both patient and her son at bedside voiced understanding regarding above and were comfortable discharge. Presentation was discussed with my attending physician who is comfortable with plan at time of discharge as well. CRITICAL CARE: In the event critical care time is administered this will be documented by attending physician. DIAGNOSTIC RESULTS EKG: All EKG's are interpreted by the Emergency Department Physician who Co- signs this chart in theabsence of a management services technician. RADIOLOGY: VA US LOWER EXTREMITY VENOUS BILATERAL Preliminary Result Conclusions * No evidence of deep vein thrombosis identified in the bilateral lower extremities. * No evidence of superficial thrombosis identified in the bilateral lower extremities. CT ANGIOGRAM PULMONARY W CONTRAST Final Result Impression: No acute abnormality including PE. Lingular subsegmental atelectasis. - Note: Radiology results need to be interpreted within a comprehensive clinical context. If you have questions about the radiology report, please contact the office of the ordering clinician. CT ABD PEL ED FAST W CONTRAST Final Result No acute abnormality of the abdomen or pelvis. - Note: Radiology results need to be interpreted within a comprehensive clinical context. If you have questions about the radiology report, please contact the office of the ordering clinician. XR CHEST AP PORTABLE Final Result No acute finding. - Note: Radiology results need to be interpreted within a comprehensive clinical context. If you have questions about the radiology report, please contact the office of the ordering clinician. EK EKG [address] 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: : 1955 Requested By: ALEENA Abraham Order Number: [id number] Reading MD: Miles Rodriguez Measurements Intervals [place] Rate: 88 P: 47 DC: 183 QRS: -49 QRSD: 110 T: 53 QT: 344 QTc: 418 Interpretive Statements SINUS RHYTHM LEFT ANTERIOR FASCICULAR BLOCK Electronically Signed On 12-12-2023 16:16:42 EDT by Miles Rodriguez LABS: Labs Reviewed CBC WITH DIFF - Abnormal; Notable for the following components: Result Value WBC 12.1 (*) Neut # 8.8 (*) Morris # 1.0 (*) All other components within normal limits COMPREHENSIVE METABOLIC PANEL - Abnormal; Notable for the following components: Glucose Lvl 111 (*) ALT 44 (*) All other components within normal limits URINALYSIS REFLEX - Abnormal; Notable for the following components: UA Glucose 3+ (300-500 mg/dL) (*) All other components within normal limits LIPASE LEVEL - Normal TROPONIN-T HIGH SENSITIVITY BASELINE W/ REFLEX - Normal Narrative: Ingestion of min doses of biotin (>5 mg/day) taken within 8 hours of drawing blood sample can interfere with this immunoassay test. NT PROBNP - Normal Narrative: An NT pro-BNP level less than 300 pg/mL in any patient, regardless of age, effectively rules out acute CHF with a 99% negative predictive value. Ingestion of min doses of biotin (>5 mg/day) taken within 8 hours of drawing blood sample can interfere with this immunoassay test. TROPONIN-T HIGH SENSITIVITY 2HR - Normal Narrative: Ingestion of min doses of biotin (>5 mg/day) taken within 8 hours of drawing blood sample can interfere with this immunoassay test. UA W/REFLEX TO CULTURE Narrative: The following orders were created for panel order UA W/REFLEX TO CULTURE. Procedure Abnormality Status --------- ------ URINALYSIS REFLEX[[id number]] Abnormal Final result EXTRA LAND URINE CX[[id number]] Final result Please view results for these tests on the individual orders. Vitals: Vitals: 12/12/23 1417 12/12/23 1445 12/12/23 1917 BP: 143/58 122/50 Pulse: 81 70 Resp: 16 16 Temp: 98 ??F (36.7 ??C) TempSrc: Oral SpO2: 99% ED CLINICAL IMPRESSION 1. Bilateral lower extremity edema 2. Chest pain, unspecified type 3. Suprapubic abdominal pain DISPOSITION Patient is discharged in stable condition. They understand return precautions and follow-up recommendations. Risks, benefits, and alternatives were discussed. The patient was found to be hemodynamically stable and afebrile. They were well appearing during clinical evaluation. As such, the patient was deemeda good candidate for continued management in the outpatient setting. Patient was advised to follow up with primary physicians, to review discharge instructions, and to return for new and or worsened symptomology. PATIENT REFERRED TO: Cristiane Shirley MD [address] [place], [place] [id number] In 3 days DISCHARGE MEDICATIONS: Discharge Medication List as of 12/12/2023 6:58 PM Electronically signed by: Aleena Hwang PA-C, 12/13/2023 10:10 AM This chart was completed using voice recognition technology and may contain unintended errors Aleena Hwang PA-C 12/13/23 1010 Cosigned by Sarai Kellogg MD at 12/13/2023 3:27 PM EDT Associated attestation - Sarai Kellogg MD - 12/13/2023 3:27 PM EDT This patient was seen in coordination with [facility]. I have reviewed the chief complaint and history of present illness and review of systems as well asthe past medical/social/family history sections for this patient. I have participated in the care of this patient and was available for consultation during patient's Emergency Department visit. I have reviewed/ interpreted the EKG independently (if performed). I have also reviewed the laboratory and imaging study results (if performed) and the anticipated plan of care. EKG as read by me: Sinus rhythm, rate 88. Left anterior fascicular block. DC interval 183 ms. QRS duration 110 ms. QTc 418 ms. This chart was completed using voice recognition technology and may contain unintended errors documented in this encounter Plan of Treatment Upcoming Encounters Date Type Department Care Team (Late st Contact Info) Description 07/29/2024 9:00 AM EST [facility]ment [facility] [address] [facility] [place], [place] [id number] Jomar Kim MD [address] [place] [address] documented as of this encounter Goals Goal Patient Goal Type Associated Problems Recent Progress Patient-Stated? Author Blood Pressure < 140/90 Blood Pressure 110/72(04/09 2:44 PM EDT) No Rachel Rogers, MULU BMI (Calculated) < 30 General 50.9(2023 2:44 PM EDT) No Rachel Rogers, MULU Eat better, exercise, reach an ideal body weight General No Ni Clinton, canvas goods maker Healing General On track(12/03 9:18 AM [...] neuropathy weekly. ?? Refer to PCP and/or Outreach Librarian, Vascular Specialist as indicated. ?? Monitor patient [...] Name Priority Date/Time Associated Diagnosis Comments SCANNED EKG 12/15/2023 12:47 PM EDT TROPONIN-T HIGH SENSITIVITY 2HR Timed 12/12/2023 5:59 PM EDT [facility] US LOWER EXTREMITY VENOUS BILATERAL STAT 12/12/2023 5:[address] ABD PEL ED FAST W CONTRAST STAT 12/12/2023 5:[address] ANGIOGRAM PULMONARY W CONTRAST STAT 12/12/2023 5:04 PM EDT URINALYSIS REFLEX STAT 12/12/2023 4:2 3 PM EDT UA W/REFLEX TO CULTURE STAT 4:23 PM EDT EXTRA LAND URINE CX STAT 12/12/2023 4 :23 PM EDT XR CHEST AP PORTABLE STAT 12/12/2023 3:58 PM EDT TROPONIN-T HIGH SENSITIVITY BASELINE W/ REFLEX STAT 12/12/2023 3:48 PM EDT CBC WITH DIFF STAT 12/12/2023 3:48 PM EDT NT PROBNP STAT 12/12/2023 3:48 PM EDT LIPASE LEVEL STAT 12/12/2023 3:48 PM EDT COMPREHENSIVE METABOLIC PANEL STAT 12/12/2023 3:48 PM EDT SALINE LOCK IV STAT 12/12/2023 3:46 PM EDT EK EKG 12 LEAD STAT 12/12/2023 3:23 PM EDT documented in this encounter Results * SCANNED EKG (12/15/2023 12:47 PM EDT) Anatomical Region Laterality Modality Other 12/15/2023 12:4 7 PM EDT us Unknown Provider IMG ECG ORDERABLES Final Result * TROPONIN-T HIGH SENSITIVITY 2HR (12/12/2023 5:59 PM EDT) [id number] 2HR 8 <14 ng/L 12/12/2023 6:21 PM EDT [facility] Comment:See the website chrissy rolle for rule out NH care pathway, conditions other than AMI that can cause elevated hs cTnT, and comparison of values from the 4th and 5th generation Isaiah tests. https://askmayoexpert.[facility].org/topic/clinical-answers/gnt-49314467/cpm-203 32308 hs-cTnT 2Hr Delta from Baseline 1 <4 ng/L 12/12/2023 6:21 PM EDT [facility] Blood VENOUS BLOOD / Unknown Venipuncture / Unknown 12/12/2023 5:59 PM EDT 12/12/2023 6:03 PM EDT Narrative [facility] - 12/12/2023 6:21 PM EDT Ingestion of min doses of biotin (>5 mg/day) taken within 8 hours of drawing blood sample can interfere with this immunoassay test. Aleena Hwang PA-C CHEMISTRY ORDERABLES Final R esult [facility] [address], [place] [id number] * [place] US LOWER EXTREMITY VENOUS BILATERAL (12/12/2023 5:38 PM EDT) Anatomical Region Laterality Modality Vascular, Leg Vascular Imaging 12/12/2023 5:15 PM EDT Impressions 12/13/2023 8:02 PM EDT Conclusions ??* No evidence of deep vein thrombosis identified in the bilateral lower extremities. ??* No evidence of superficial thrombosis identified in the bilateral lower extremities. Narrative Procedure Note Juancarlos Canseco MD - 12/13/2023 IMPRESSION Conclusions * No evidence of deep vein thrombosis identified in the bilaterallower extremities. * No evidence of superficial thrombosis identified in the bilaterallower extremities. Aleena Hwang PA-C IMG VASCULAR ORDERABLES Mercedes l Result * CT ABD PEL ED FAST W CONTRAST (12/12/2023 5:04 PM EDT) Anatomical Region Laterality Modality Abdomen, Pelvis Computed Tomogra phy 12/12/2023 5:04 PM EDT Impressions 12/12/2023 5:21 PM EDT No acute abnormality of the abdomen or pelvis. - Note: Radiology results need to be interpreted within a comprehensive clinical context. ??If you have questions about the radiology report, please contact the office of the ordering clinician. Narrative 12/12/2023 5:[address] ABDOMEN AND PELVIS WITH CONTRAST (FAST), 12/12/2023 5:04 PM CLINICAL HISTORY: ??-suprapubic pain. COMPARISON: ??05/18/2020 PROCEDURE COMMENTS: ??Multi-detector CT scanning of the abdomen and pelvis with multiplanar reformatting per expedited protocol. ??Isovue 370 IV contrast given as recorded in EPIC. Dose 1 : CT DLP Total : 1860.64 mGycm DLP Spiral Max : 1275.94 mGycm Maximum CTDI Vol : 28.21 mGy FINDINGS: ?? LOWER THORAX: ??Lung bases unremarkable. ABDOMEN AND PELVIS: Liver, spleen, pancreas, kidneys, and adrenal glands unremarkable. No hydronephrosis. ??Unremarkable biliary system. No bowel obstruction or acute inflammatory process. No evidence of appendicitis. No abnormal mass, fluid, or adenopathy in the pelvis. No acute osseous abnormality. Procedure Note Carolina Lombardi MD - 12/12/2023 CT ABDOMEN AND PELVIS WITH CONTRAST (FAST), 12/12/2023 5:04 PM CLINICAL HISTORY: -suprapubic pain. COMPARISON: 05/18/2020 PROCEDURE COMMENTS: Multi-detector CT scanning of the abdomen and pelviswith multiplanar reformatting per expedited protocol. Isovue 370 IV contrastgiven as recorded in EPIC. Dose 1 : CT DLP Total : 1860.64 mGycm DLP Spiral Max : 1275.94 mGycm Maximum CTDI Vol : 28.21 mGy FINDINGS: LOWER THORAX: Lung bases unremarkable. ABDOMEN AND PELVIS: Liver, spleen, pancreas, kidneys, and adrenal glands unremarkable. No hydronephrosis. Unremarkable biliary system. No bowel obstruction or acute inflammatory process. No evidence ofappendicitis. No abnormal mass, fluid, or adenopathy in the pelvis. No acute osseous abnormality. IMPRESSION: No acute abnormality of the abdomen or pelvis. - Note: Radiology results need to be interpreted within a comprehensiveclinical context. If you have questions about the radiology report, please contactthe office of the ordering clinician. us Aleena Hwang PA-C IMG CT ORDERABLES Final Resu lt * CT ANGIOGRAM PULMONARY W CONTRAST (12/12/2023 5:04 PM EDT) Anatomical Region Laterality Modality Chest Computed Tomogra phy 12/12/2023 5:04 PM EDT Impressions 12/12/2023 5:16 PM EDT Impression: No acute abnormality including PE. Lingular subsegmental atelectasis. - Note: Radiology results need to be interpreted within a comprehensive clinical context. ??If you have questions about the radiology report, please contact the office of the ordering clinician. Narrative 12/12/2023 5:[address] PULMONARY ANGIOGRAM, ??12/12/2023 5:04 PM CLINICAL HISTORY: ??-Chest Pain -CP, lightheaded, SOA. COMPARISON: ??11/24/2021 CT TECHNIQUE: Dose 1 : CT DLP Total : 1860.64 mGycm DLP Spiral Max : 1275.94 mGycm Maximum CTDI Vol : 28.[address] angiogram of the chest with 75cc Isovue 370 intravenous contrast material with 2-D multiplanar reconstructions and 3-D ??MIP reconstructions. Automated exposure control utilized for dose reduction. Findings: Limitation: None. Pulmonary arteries:Patent. Thoracic aorta:No thoracic aortic dissection or aneurysm. Heart and pericardium:No cardiomegaly. No pericardial effusion. Mediastinum and tai:Normal. LUNGS: Subsegmental lingular atelectasis. Otherwise clear Pleura:No pleural effusion or pneumothorax. Chest wall, diaphragm, and axilla:No gross abnormality. Bony thorax:No obvious acute bony abnormality or metastasis. Imaged upper abdomen:Grossly unremarkable. Procedure Note Jose Small MD - 12/12/2023 CT PULMONARY ANGIOGRAM, 12/12/2023 5:04 PM CLINICAL HISTORY: -Chest Pain -CP, lightheaded, SOA. COMPARISON: 11/24/2021 CT TECHNIQUE: Dose 1 : CT DLP Total : 1860.64 mGycm DLP Spiral Max : 1275.94 mGycm Maximum CTDI Vol : 28.[address] angiogram of the chest with 75cc Isovue 370 intravenouscontrast material with 2-D multiplanar reconstructions and 3-D MIPreconstructions. Automated exposure control utilized for dose reduction. Findings: Limitation: None. Pulmonary arteries:Patent. Thoracic aorta:No thoracic aortic dissection or aneurysm. Heart and pericardium:No cardiomegaly. No pericardial effusion. Mediastinum and tai:Normal. LUNGS: Subsegmental lingular atelectasis. Otherwise clear Pleura:No pleural effusion or pneumothorax. Chest wall, diaphragm, and axilla:No gross abnormality. Bony thorax:No obvious acute bony abnormality or metastasis. Imaged upper abdomen:Grossly unremarkable. IMPRESSION: Impression: No acute abnormality including PE. Lingular subsegmental atelectasis. - Note: Radiology results need to be interpreted within a comprehensiveclinical context. If you have questions about the radiology report, please contactthe office of the ordering clinician. Aleena Hwang PA-C IMG CT ORDERABLES Final Resu lt * EXTRA LAND URINE CX (12/12/2023 4:23 PM EDT) Urine URINE SPECIMEN COLLECTION, CLEAN CATCH / Unknown 12/12/2023 4:23 PM EDT 12/12/2023 4:26 PM EDT us Aleena Hwang PA-C MICROBIOLOGY - GENERAL ORDER DICK Final Result [facility] [address] [place] [address] * (ABNORMAL) URINALYSIS REFLEX (12/12/2023 4:23 PM EDT) UA Color Colorless 12/12/2023 4:29 PM EDT [facility] UA Appear Clear Clear 12/12/2023 4:29 PM EDT [facility] UA Glucose 3+ (300-500 mg/dL)(A) Negative mg/dL 12/12/2023 4:29 PM EDT [facility] UA Ketones Negative Negative mg/dL 12/12/2023 4:29 PM EDT [facility] UA Blood Negative Negative 12/12/2023 4:29 PM EDT [facility] UA pH 6.5 5.0 - 8.0 pH 12/12/2023 4:29 PM EDT [facility] UA Protein Negative Negative mg/dL 12/12/2023 4:29 PM EDT [facility] UA Urobilinogen Normal <=1 mg/dL 4:29 PM EDT [facility] UA Bili Negative Negative 12/12/2023 4:29 PM EDT [facility] UA Nitrite Negative Negative 12/12/2023 4:29 PM EDT [facility] UA Leuk Est Negative Negative 12/12/2023 4:29 PM EDT [facility] UA Spec Grav 1.007 1.001 - 1.035 no units 12/12/2023 4:29 PM EDT [facility] Comment:Reference range dano d for random specimens only. Urine URINE SPECIMEN COLLECTION, CLEAN CATCH / Unknown 12/12/2023 4:23 PM EDT 12/12/2023 4:26 PM EDT Aleena Hwang PA-C URINE ORDERABLES Final Resul t [facility] [address] [place] [address] * XR CHEST AP PORTABLE (12/12/2023 3:58 PM EDT) Anatomical Region Laterality Modality Chest Radiographic Faby ging 12/12/2023 3:58 PM EDT Impressions 12/12/2023 4:01 PM EDT No acute finding. - Note: Radiology results need to be interpreted within a comprehensive clinical context. ??If you have questions about the radiology report, please contact the office of the ordering clinician. Narrative 12/12/2023 4:01 PM EDT XR CHEST AP PORTABLE, ??12/12/2023 3:58 PM CLINICAL HISTORY: ??-CP COMPARISON: ??09/15/23. PROCEDURE COMMENTS: AP portable technique. FINDINGS: Support devices: No visible support devices. Heart and mediastinal contours within normal limits for technique. ??No active failure, pneumonia, or visible effusion. ??No visible pneumothorax. Procedure Note Perla Schroeder MD - 12/12/2023 XR CHEST AP PORTABLE, 12/12/2023 3:58 PM CLINICAL HISTORY: -CP COMPARISON: 09/15/23. PROCEDURE COMMENTS: AP portable technique. FINDINGS: Support devices: No visible support devices. Heart and mediastinal contours within normal limits for technique. Noactive failure, pneumonia, or visible effusion. No visible pneumothorax. IMPRESSION: No acute finding. - Note: Radiology results need to be interpreted within a comprehensiveclinical context. If you have questions about the radiology report, please contactthe office of the ordering clinician. Aleena Hwang PA-C IMG DIAGNOSTIC IMAGING ORDER DICK Final Result * NT PROBNP (12/12/2023 3:48 PM EDT) NT Pro-BNP 200 <=353 pg/mL 12/12/2023 4:26 PM EDT [facility] Blood VENOUS BLOOD / Unknown Venipuncture / Unknown 12/12/2023 3:48 PM EDT 12/12/2023 3:56 PM EDT Narrative [facility] - 12/12/2023 4:26 PM EDT An NT pro-BNP level less than 300 pg/mL in any patient, regardless of age, effectively rules out acute CHF with a 99% negative predictive value. Ingestion of min doses of biotin (>5 mg/day) taken within 8 hours of drawing blood sample can interfere with this immunoassay test. Aleena Hwang PA-C CHEMISTRY ORDERABLES Final R esult [facility] [address] [place] [address] * TROPONIN-T HIGH SENSITIVITY BASELINE W/ REFLEX (12/12/2023 3:48 PM EDT) [id number] 7 <14 ng/L 12/12/2023 4:26 PM EDT [facility] Comment:See the website belo w for rule out [place] care pathway, conditions other than AMI that can cause elevated hs cTnT, and comparison of values from the 4th and 5th generation Isaiah tests. https://askmayoexpert.[facility].org/topic/clinical-answers/gnt-89526578/cpm-203 80950 Blood VENOUS BLOOD / Unknown Venipuncture / Unknown 12/12/2023 3:48 PM EDT 12/12/2023 3:56 PM EDT Narrative [facility] - 12/12/2023 4:26 PM EDT Ingestion of min doses of biotin (>5 mg/day) taken within 8 hours of drawing blood sample can interfere with this immunoassay test. us Aleena Hwang PA-C CHEMISTRY ORDERABLES Final R esult [facility] [address] [place] [address] * (ABNORMAL) COMPREHENSIVE METABOLIC PANEL (12/12/2023 3:48 PM EDT) Sodium 140 136 - 145 mmol/L 12/12/2023 4:19 PM EDT [facility] Potassium 4.2 3.5 - 5.0 mmol/L 12/12/2023 4:19 PM EDT [facility] Chloride 102 98 - 107 mmol/L 12/12/2023 4:19 PM EDT [facility] Total CO2 28 22 - 29 mmol/L 12/12/2023 4:19 PM EDT [facility] Anion Gap 10 7 - 16 mmol/L 12/12/2023 4:19 PM EDT [facility] Calcium 10.4 8.8 - 10.4 mg/dL 12/12/2023 4:19 PM EDT [facility] Glucose Lvl 111(H) 70 - 99 mg/dL 12/12/2023 4:19 PM EDT [facility] BUN 19 8 - 23 mg/dL 12/12/2023 4:19 PM EDT [facility] Creatinine 0.90 0.51 - 1.30 mg/dL 12/12/2023 4:19 PM EDT [facility] Albumin 4.1 3.2 - 4.6 gm/dL 12/12/2023 4:19 PM EDT [facility] Total Protein 8.1 6.4 - 8.3 gm/dL 12/12/2023 4:19 PM EDT [facility] Bili Total 0.2 0.2 - 1.3 mg/dL 12/12/2023 4:19 PM EDT [facility] ALT 44(H) <=41 U/L 12/12/2023 4:19 PM EDT [facility] AST 24 <=40 U/L 12/12/2023 4:19 PM EDT [facility] Alk Phos 100 36 - 123 U/L 12/12/2023 4:19 PM EDT [facility] eGFR (CKD-EPIcr 2020) 70 >=60 mL/min/1.7 3 m2 12/12/2023 4:19 PM EDT [facility] Comment:Estimated GFR was ca lculated using the CKD-EPIcr (2020) equation refit without race. The equation is recommended by the National Kid[employer] - [place] [employer] Nephrology Task Force. Blood VENOUS BLOOD / Unknown Venipuncture / Unknown 12/12/2023 3:48 PM EDT 12/12/2023 3:56 PM EDT us Aleena FINCH-C CHEMISTRY ORDERABLES Final R esult Performing Organization Address [facility] [[email or web address]] de Phone Number [facility] [address] [place] [address] * LIPASE LEVEL (12/12/2023 3:48 PM EDT) Lipase Lvl 30 13 - 60 U/L 12/12/2023 4:19 PM EDT [facility] Blood VENOUS BLOOD / Unknown Venipuncture / Unknown 12/12/2023 3:48 PM EDT 12/12/2023 3:56 PM EDT Aleena FINCH-C CHEMISTRY ORDERABLES Final R esult Performing Organization Address City/[facility] Co de Phone Number [facility] [address], [place] [id number] * (ABNORMAL) CBC WITH DIFF (12/12/2023 3:48 PM EDT) WBC 12.1(H) 3.7 - 10.3 x10(3)/mcL 12/12/2023 4:00 PM EDT [facility] RBC 4.11 3.90 - 5.20 x10(6)/mcL 12/12/2023 4:00 PM EDT [facility] Hgb 11.3 11.2 - 15.7 g/dL 12/12/2023 4:00 PM EDT [facility] Hct 36.7 34.0 - 45.0 % 12/12/2023 4:00 PM EDT [facility] MCV 89.3 80.0 - 100.0 fL 12/12/2023 4:00 PM EDT [facility] MCH 27.5 26.0 - 34.0 pg 12/12/2023 4:00 PM EDT [facility] MCHC 30.8 30.7 - 35.5 g/dL 12/12/2023 4:00 PM EDT [facility] RDW 14.1 <=14.9 % 12/12/2023 4:00 PM EDT [facility] Platelet 270 155 - 369 x10(3)/mcL 12/12/2023 4:00 PM EDT [facility] MPV 9.4 8.8 - 12.5 fL 12/12/2023 4:00 PM EDT [facility] Neut Percent 72.6 % 12/12/2023 4:00 PM EDT [facility] Comment:Neutrophils equals s egs plus bands Imm Gran% 0.2 % 12/12/2023 4:00 PM EDT [facility] Comment:Automated count of m etamyelocytes, myelocytes and promyelocytes. Lymph Percent 16.0 % 12/12/2023 4:00 PM EDT [facility] Morris Percent 8.2 % 12/12/2023 4:00 PM EDT [facility] Eos Percent 2.6 % 12/12/2023 4:00 PM EDT [facility] Baso Percent 0.4 % 12/12/2023 4:00 PM EDT [facility] Neut # 8.8(H) 1.6 - 6.1 x10(3)/[facility] 12/12/2023 4:00 PM EDT [facility] Comment:Neutrophils equals s egs plus bands IMMGRAN# 0.0 0.0 - 0.1 x10(3)/[facility] 12/12/2023 4:00 PM EDT [facility] Comment:Automated count of m etamyelocytes, myelocytes and promyelocytes. An absolute IG <0.1 is reported as 0.0. Lymph # 1.9 1.2 - 3.9 x10(3)/[facility] 12/12/2023 4:00 PM EDT [facility] Morris # 1.0(H) 0.3 - 0.9 x10(3)/[facility] 12/12/2023 4:00 PM EDT [facility] Eos# 0.3 0.0 - 0.5 x10(3)/[facility] 12/12/2023 4:00 PM EDT [facility] Baso # 0.1 0.0 - 0.1 x10(3)/[facility] 12/12/2023 4:00 PM EDT [facility] Blood VENOUS BLOOD / Unknown Venipuncture / Unknown 12/12/2023 3:48 PM EDT 12/12/2023 3:56 PM EDT us Aleena Hwang PA-C HEMATOLOGY ORDERABLES Final Result Performing Organization Address City/State/[facility] [[email or web address]] de Phone Number [facility] [address] [place] [address] * EK EKG 12 LEAD (12/12/2023 3:23 PM EDT) Anatomical Region Laterality Modality Electrocardiogra phy 12/12/2023 3:31 PM EDT Impressions 12/12/2023 4:16 PM EDT ?[place] ? Test Date: ?2023-12-12 Pat Name: ? ALYSSA CAMPOS ?Department: ?? DEPID ? Room: ? Z22 Gender: ? Female ? Cascara Bark Cutter: ?? : ?1955 ? Requested By: ALEENA HWANG A Order Number: [id number] ?Reading MD: ?? Miles Rodriguez ? Measurements Intervals ?[place] ? Rate: ? 88 ? P: ?47 DC: ? 183 ?QRS: ?-49 QRSD: ? 110 ?T: ?53 QT: ? 344 ? QTc: ?418 ? Interpretive Statements SINUS RHYTHM LEFT ANTERIOR FASCICULAR BLOCK Electronically Signed On 12-12-2023 16:16:42 EDT by Miles Rodriguez Narrative Procedure Note Miles Rodriguez MD - 12/12/[address] [facility] Test Date: 2023-12-12 Pat Name: ALYSSA CAMPOS Department: DEPID Room: Z22 Gender: Female Cascara Bark Cutter: : 1955 Requested By: ALEENA Abraham Order Number: [id number] Reading MD: Miles Rodriguez Measurements Intervals [place] Rate: 88 P: 47 DC: 183 QRS: -49 QRSD: 110 T: 53 QT: 344 QTc: 418 Interpretive Statements SINUS RHYTHM LEFT ANTERIOR FASCICULAR BLOCK Electronically Signed On 12-12-2023 16:16:42 EDT by Miles Rodriguez us Aleena Hwang PA-C IMG ECG ORDERABLES Final Res ult documented in this encounter Visit Diagnoses Diagnosis Bilateral lower extremity edema- Primary Edema Chest pain, unspecified type Suprapubic abdominal pain Abdominal pain, other specified site documented in this encounter Administered Medications Inactive Administered Medications - up to 1 most recent administrations Medication Order MAR Action Action Date Dose Rate Site iopamidoL (ISOVUE-370) 370 mg iodine /mL (76 %) injection (LOW) 100 mL 100 mL, Intravenous, ONCE PRN, 1 dose, Starting on Fri12/12/23 at 1658, Until Fri12/12/23 at 1658, Radiography/Imaging, Radiology Procedure, VESICANT , CT (Contrasts) Given 12/12/2023 4:58 PM EDT 100 mL morphine injection 4 mg 4 mg, Intravenous, ONCE, 1 dose, On Fri12/12/23 at 1630 Given 12/12/2023 4:41 PM EDT 4 mg ondansetron (ZOFRAN) injection 4 mg 4 mg, Intravenous, ONCE, 1 dose, On Fri12/12/23 at 1630 Given 12/12/2023 4:41 PM EDT 4 mg sodium chloride 0.9% IV line flush 50 mL 50 mL, Intravenous, at 999 mL/hr, PRN, Starting on Fri12/12/23 at 1545, Until Fri12/12/23 at 2346, Line Care, Flush with 50 mL after IVPB to insure complete administration of the dose. May use the saline infusion to back flush IVPB tubing as needed., Use this order to document priming and flushing IV line after medication administration. sodium chloride 0.9% syringe 5-10 mL 5-10 mL, Intravenous, PRN, Starting on Fri12/12/23 at 1545, Until Fri12/12/23 at 2346, Line Care, Flush with 5 mL saline pre/post IVP, and 5 mL prior to IVPB or blood product administration. Protocol for PERIPHERAL IV saline lock maintenance, flush with 3-5 mL saline syringe every 8 hours., Flush peripheral lines every 12 hours, central lines every 8 hours, and after IV medication sodium chloride 0.9% syringe Intravenous, ONCE PRN, 1 dose, Starting on Fri12/12/23 at 1657, Until Fri12/12/23 at 1658, Line Care, Flush peripheral lines every 12 hours, central lines every 8 hours, and after IV medication, CT (Contrasts) Given 12/12/2023 4:58 PM EDT 20 mL documented in this encounter Active and Recently Administered Medications Times are shown in EDT. Scheduled Medication Order 12/10/2023 12/11/2023 12/12/2023 morphine injection 4 mg (COMPLETED) 4 mg, Intravenous, ONCE, 1 dose, On Fri12/12/23 at 1630 1641 (Given - Provid er: Gallito Levin RN) ondansetron (ZOFRAN) injection 4 mg (COMPLETED) 4 mg, Intravenous, ONCE, 1 dose, On Fri12/12/23 at 1630 1641 (Given - Provid er: Gallito Levin RN) PRN Medication Order 12/10/2023 12/11/2023 12/12/2023 iopamidoL (ISOVUE-370) 370 mg iodine /mL (76 %) injection (LOW) 100 mL (COMPLETED) 100 mL, Intravenous, ONCE PRN, 1 dose, Starting on Fri12/12/23 at 1658, Until Fri12/12/23 at 1658, Radiography/Imaging, Radiology Procedure, VESICANT , CT (Contrasts) 1657 (Given - Provid er: Guera Cerna, RT) sodium chloride 0.9% IV line flush 50 mL 50 mL, Intravenous, at 999 mL/hr, PRN, Starting on Fri12/12/23 at 1545, Until Fri12/12/23 at 2346, Line Care, Flush with 50 mL after IVPB to insure complete administration of the dose. May use the saline infusion to back flush IVPB tubing as needed., Use this order to document priming and flushing IV line after medication administration. sodium chloride 0.9% syringe 5-10 mL 5-10 mL, Intravenous, PRN, Starting on Fri12/12/23 at 1545, Until Fri12/12/23 at 2346, Line Care, Flush with 5 mL saline pre/post IVP, and 5 mL prior to IVPB or blood product administration. Protocol for PERIPHERAL IV saline lock maintenance, flush with 3-5 mL saline syringe every 8 hours., Flush peripheral lines every 12 hours, central lines every 8 hours, and after IV medication sodium chloride 0.9% syringe (COMPLETED) Intravenous, ONCE PRN, 1 dose, Starting on Fri12/12/23 at 1657, Until Fri12/12/23 at 1658, Line Care, Flush peripheral lines every 12 hours, central lines every 8 hours, and after IV medication, CT (Contrasts) 1657 (Given - Provid er: Guera Cerna, RT) documented in this encounter Orders Medications Ordered That Edwin ht Not Have Been Administered Count Last Ordered Date First Ordered Date sodium chloride 0.9% IV line flush 50 mL 12/12/2023 sodium chloride 0.9% syringe 5-10 mL 1 01/2024 Nursing Count Last Ordered Date First Orde red Date CARDIAC MONITORING 1 12/12/2023 IV Count Last Ordered Date First Orde red Date SALINE LOCK IV 1 12/12/2023 documented in this encounter Additional Health Concerns Assessment Noted Time A fall risk assessment has been complete d for the patient 11/08/2023 9:11 AM EST documented as of this encounter 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
--- OUTSIDE RECORDS SUMMARY | 2024-07-22 15:57 | XMS_ITS | Encounter Summary ---
Author Organization [place] [address] Care Team Providers Care Packaging Inspector Name Role Phone Garett Holt MD Unavailable [phone] Ruiz Stokes MD Unavailable [phone] Yenny Schwab MD Unavailable [phone] Cristiane Shirley MD Primary Care Provider [phone] Reason for Referral * GI Procedure (Routine) - Pending Review Specialty Diagnoses / Procedures Referred By Ron bansal Referred To Contact General Surgery Diagnoses Screening for colon cancer Abel Pretty MD [address] [place] [address] Phone: tel: fax: [facility] [address] [facility] [address] [facility] [address] [place] [address] Phone: tel: fax: Referral ID Status Reason Start Date Expiration Date V isits Requested Visits Authorized [id number] Pending Review 12/15/2023 12/14/2024 1 1 Reason for Visit * Reason Comments ED Follow-up Leg Swelling Back Pain Constipation Encounter Details Date Type Department Care Team (Late st Contact Info) Description 12/15/2023 10:15 AM EDT Office Visit [facility] [address] [place] [address] Abel Pretty MD [address] [place] [address] Screening for colon cancer (Primary Dx); Lower extremity edema; Venous stasis dermatitis of left lower extremity; Constipation, chronic; Type 2 diabetes mellitus without complication, without long-term current use of insulin (HCC); Callus of foot Social History Tobacco Use Types Packs/Day Years [...] Date Recorded PHQ-2 Total Score 0 12/21/2022 [facility] - Occupational Stress [...] Sign Reading Time Taken Comments Blood Pressure 128/72 12/15/2023 10:06 AM EDT Pulse - - Temperature 36.7 ??C (98 ??F) 12/15/2023 10:06 AM EDT Respiratory Rate - - Oxygen Saturation - - Inhaled Oxygen Concentration - - Weight 113.9 kg (251 lb) 12/15/2023 10:06 AM EDT Height 162.6 cm (5' 4 ) 12/15/2023 10:06 AM EDT Body Mass Index 43.08 12/15/2023 10:06 AM EDT documented in this [...] Refills Last Filled Start Date End Date Shower Chair MISCELLANEOUIndic ations:Venous stasis dermatitis of left lower extremity 1 Device by MISCELLANEOUS route once for 1 dose. Use as directed. 1 Each 1 12/15/2023 12/15/19 24 Wheechair Light MISCELLANEOUIndic ations:Venous stasis dermatitis of left lower extremity 1 Device by MISCELLANEOUS route once for 1 dose. Use as directed. 1 Each 1 12/15/2023 12/15/19 24 linaCLOtide (LINZESS) 145 mcg Oral CapsuleIndication s:Constipation, chronic Take 1 Capsule by mouth before breakfast. 30 Capsule 2 12/15/2023 12/23/19 24 fUROsemide (LASIX) 40 mg Oral TabletIndications :Lower extremity edema,Venous stasis dermatitis of left lower extremity One tab daily as needed. 30 Tablet 2 12/15/2023 01/03/20 24 hydroCHLOROthiazi de 25 mg Oral TabletIndications :Lower extremity edema Take 1 Tablet by mouth daily. 30 Tablet 3 12/15/2023 01/03/20 24 Diabetic Shoes MISCELLANEOUIndic ations:Type 2 diabetes mellitus without complication, without long-term current use of insulin (HCC),Callus of foot 1 Each by MISCELLANEOUS route once for 1 dose. 1 Each 12/15/2023 12/15/19 documented in this encounter Progress Notes * Abel Pretty MD - 12/15/2023 10:15 AM EDT Vitals: 12/15/23 1006 BP: 128/72 Temp: 98 ??F (36.7 ??C) Weight: 251 lb (113.9 kg) Height: 5' 4 (1.626 m) Body mass index is 43.08 kg/m??. SUBJECTIVE: Chief Complaint Patient presents with ED Follow-up Leg Swelling Back Pain Constipation HPI: Leg Swelling This is a new problem. The current episode started more than 1 month ago. The problem occurs constantly. The problem has been gradually worsening. Pertinent negatives include no abdominal pain, chestpain, coughing, fever, headaches, joint swelling or rash. Nothing aggravates the symptoms. She has tried nothing for the symptoms. Back Pain This is a new problem. The current episode started 1 to 4 weeks ago. The problem has been unchanged. Pertinent negatives include no abdominal pain, chest pain, coughing, fever, headaches, joint swelling or rash. Nothing aggravates the symptoms. She has tried nothing for the symptoms. Pain going from right hip down to right knee. Also c/o of constipation that has been going on for awhile and meds not helping. Diabetes: Alyssa following up today for diabetes. Current symptoms/problems include none. Current monitoring regimen: none Home blood sugar records: trend: stable Any episodes of hypoglycemia? no On insulin? No Weight trend: Body mass index is 43.08 kg/m??. Wt Readings from Last 3 Encounters: 12/15/23 251 lb (113.9 kg) 11/08/23 251 lb (113.9 kg) 08/30/23 252 lb (114.3 kg) A1c trend: Lab Results Component Value Date HGBA1C 5.6 11/09/2023 HGBA1C 6.0 (H) 05/31/2023 HGBA1C 6.1 (H) 07/27/2022 Renal trend: Lab Results Component Value Date GFRAFRAM 96 02/24/2021 GFRAFRAM 104 05/18/2020 GFRAFRAM 113 04/27/2020 Lab Results Component Value Date GFRNONAFRAM 83 02/24/2021 GFRNONAFRAM 90 05/18/2020 GFRNONAFRAM 98 04/27/2020 Lab Results Component Value Date GFRCKDEPI 70 12/12/2023 GFRCKDEPI 66 11/09/2023 GFRCKDEPI 73 05/31/2023 Lipid trend: Lab Results Component Value Date LDLCALC 107 (H) 05/31/2023 Hypertension: Home reporting of hypertension was reviewed at time of visit. Alyssa denies any episodes of dizziness, lightheadedness, presyncope, syncope, headache, or chest pain. Alyssa does not report any new symptoms of possible hypertension sequelae. The patient reports that she is not having significant issues or side effects of current medications/treatments. Hyperlipidemia: Last Lipid and liver panel has been reviewed. Current cholesterol goals discussed with patient. Thepatient is on a lipid lowering agent. The patient currently is on a statin. No complaints of side effects from medication. The patient is not having issues maintaining compliance with the previously outlined care plan. The patient does not report significant side effects of current medications/treatments. Diet has been reviewed with patient. Review of Systems Constitutional: Negative for fever. Eyes: Negative for visual disturbance. Respiratory: Negative for cough and shortness of breath. Cardiovascular: Negative for chest pain, palpitations and leg swelling. Gastrointestinal: Negative for abdominal pain, constipation and [...] General: Swelling present. Normal range of motion. Skin: General: Skin is warm. Findings: No rash. Neurological: Mental Status: She is alert. Psychiatric: Mood and Affect: Mood normal. Thought Content: Thought content normal. Assessment Diagnoses and all orders for this visit: Screening for colon cancer - SCREENING COLONOSCOPY Lower extremity edema Comments: Stop Amlodipine, monitor BP at home closely. Orders: - hydroCHLOROthiazide 25 mg Oral Tablet; Take 1 Tablet by mouth daily. Dispense: 30 Tablet; Refill:3 - fUROsemide (LASIX) 40 mg Oral Tablet; One tab daily as needed. Dispense: 30 Tablet; Refill: 2 Venous stasis dermatitis of left lower extremity - fUROsemide (LASIX) 40 mg Oral Tablet; One tab daily as needed. Dispense: 30 Tablet; Refill: 2 - Wheechair Light MISCELLANEOU; 1 Device by MISCELLANEOUS route once for 1 dose. Use as directed. Dispense: 1 Each; Refill: 1 - Shower Chair MISCELLANEOU; 1 Device by MISCELLANEOUS route once for 1 dose. Use as directed. Dispense: 1 Each; Refill: 1 Constipation, chronic - linaCLOtide (LINZESS) 145 mcg Oral Capsule; Take 1 Capsule by mouth before breakfast. Dispense: 30 Capsule; Refill: 2 Type 2 diabetes mellitus without complication, without long-term current use of insulin (HCC) (Chronic) - Diabetic Shoes MISCELLANEOU; 1 Each by MISCELLANEOUS route once for 1 dose. Dispense: 1 Each; Refill: 0 Callus of foot - Diabetic Shoes MISCELLANEOU; 1 Each by MISCELLANEOUS route once for 1 dose. Dispense: 1 Each; Refill: 0 documented in this encounter Plan of Treatment Upcoming Encounters Date Type Department Care Team (Late st Contact Info) Description 07/29/2024 9:00 AM EST Appointment [facility] [address] [place] [address] Jomar Kim MD [address] [place] [address] Scheduled Referrals Name Type Priority Associated Diagnoses Order Schedule SCREENING COLONOSCOPY Outpatient Referral Routine Screening for colon cancer Ordered: 12/15/2023 documented as of this encounter Goals Goal Patient Goal Type Associated Problems Recent Progress Patient-Stated? Author Blood Pressure < 140/90 Blood Pressure 110/72(04/09 2:44 PM EDT) No Rachel Rogers RMA BMI (Calculated) < 30 General 50.9(2023 2:44 PM EDT) No Rachel Rogers, MULU Eat better, exercise, reach an ideal body weight General No Ni Clinton, building carpenter Healing General On track(12/03 9:18 AM EDT) [...] neuropathy weekly. ?? Refer to PCP and/or Printing Engineer, Vascular Specialist as indicated. ?? Monitor [...] Primary Special screening for malignant neoplasms, colon Lower extremity edema Edema Venous stasis dermatitis of left lower extremity Constipation, chronic Unspecified constipation Type 2 diabetes mellitus without complication, without long-term current use of insulin (HCC) Callus of foot Corns and callosities documented in this encounter Discontinued Medications Medication Sig Discontinue Reason Start Date End Da te dapagliflozin propanediol (FARXIGA) 10 mg Oral TabletIndications:Type 2 diabetes mellitus without complication, without long-term current use of insulin (HCC) Take 1 Tablet by mouth daily. DELETE-Therapy completed 08/13/2023 12/15/2023 amLODIPine (NORVASC) 10 mg Oral TabletIndications:Essent ial hypertension Take 1 Tablet by mouth daily. Cancelled by 05/27/2022 12/15/2023 fUROsemide (LASIX) 40 mg Oral TabletIndications:Lower extremity edema,Venous stasis dermatitis of left lower extremity One tab daily and may take an extra if needed. 05/27/2023 12/15/2023 documented as of this encounter Additional Health Concerns Assessment Noted Time A fall risk assessment has been complete d for the patient 11/08/2023 9:11 AM EST documented as of this encounter Care Teams Packaging Inspector Relationship Specialty Start Date End Date Cristiane Shirley MD [address] [place], [place] [id number] PCP - General Family Medicine 08/20/18 12/29/23 Garett Holt MD Internal Medicine-Gastroenterology 12/22/12 Ruiz Stokes MD [address] [place], [place] [id number] Internal Medicine-Cardiovascular Disease 07/25/14 Yenny Schwab MD [address] [address] Internal Medicine-Rheumatology 12/11/16 documented as of this encounter
--- OUTSIDE RECORDS SUMMARY | 2024-07-22 15:57 | XMS_ITS | Encounter Summary ---
Author Organization [place] [address] Care Team Providers Care Health Screener Name Role Phone Garett Holt MD Unavailable [phone] Ruiz Stokes MD Unavailable [phone] Yenny Schwab MD Unavailable [phone] Cristiane Shirley MD Primary Care Provider [phone] Reason for Visit * Reason Onset Date Comments Home Health 11/15/2023 Verbal Orders Encounter Details Date Type Department Care Team (Late st Contact Info) Description 11/15/[address] [facility] [address] [place] [address] Cristiane Shirley MD [address] [place], [place] [id number] Home Health (Verbal Orders) Social History Tobacco Use Types Packs/Day Years [...] Date Recorded PHQ-2 Total Score 0 12/21/2022 [facility] Occupat ional [facility] - Occupational Stress Questionnaire Answer Date [...] Telephone Encounter - Elkin Barfield RMA - 11/15/2023 12:23 PM EST Verbal orders given and recommendations. * Telephone Encounter - Doron Rojas APRN - 11/15/2023 12:00 PM EST Please have them collect BMP next time there. * Telephone Encounter - Nathalie Lin - 11/15/2023 10:32 AM EST Fide with call to let us know that Alyssa will have nursing seeing 1 time a week for this episode. Care started today. Edema bilateral, was instructed to take extra Lasix Fide is asking for verbals or advise, requesting to know if we would want any labs done. Fide - [phone] documented in this encounter Plan of Treatment Upcoming Encounters Date Type Department Care Team (Late st Contact Info) Description 07/29/2024 9:00 AM EST Appointment [facility] [address] [place] [address] Jomar Kim MD [address] [place] [address] documented as of this encounter Goals Goal Patient Goal Type Associated Problems Recent Progress Patient-Stated? Author Blood Pressure < 140/90 Blood Pressure 110/72(04/09 2:44 PM EDT) No Rachel Rogers RMA BMI (Calculated) < 30 General 50.9(2023 2:44 PM EDT) No Rachel Rogers, RMA Eat better, exercise, reach an ideal body weight General No Ni Clinton, mailing manager Healing General On track(12/03 9:18 AM [...] neuropathy weekly. ?? Refer to PCP and/or Speech Pathology Teacher, Vascular Specialist as indicated. ?? Monitor patient [...] documented as of this encounter Care Teams Health Screener Relationship Specialty Start Date End Date Cristiane Shirley MD [address] [place] [address] PCP - General Family Medicine 08/20/18 12/29/23 Garett Holt MD Internal Medicine-Gastroenterology 12/22/12 Ruiz Stokes MD [address] [place] [address] Internal Medicine-Cardiovascular Disease 07/25/14 Yenny Schwab MD [address] [facility] Building [address] [place] [address] Internal Medicine-Rheumatology 12/11/16 documented as of this encounter
--- OUTSIDE RECORDS SUMMARY | 2024-07-22 15:57 | XMS_ITS | Encounter Summary ---
Author Organization [place] [address] Care Team Providers Care Eating Disorder Psychologist Name Role Phone Garett Holt MD Unavailable [phone] Ruiz Stokes MD Unavailable [phone] Yenny Schwab MD Unavailable [phone] Cristiane Shirley MD Primary Care Provider Reason for Visit * Reason Comments Medication Refill Encounter Details Date Type Department Care Team (Late st Contact Info) Description 11/15/2023 Refill [facility] [address] [place] [address] Abel Pretty MD [address] [place] [address] Medication Refill Social History Tobacco Use Types [...] 12/21/2022 [facility] Occupat ional [facility] - Occupational Stress Questionnaire Answer [...] Refills Last Filled Start Date End Date meloxicam (MOBIC) 15 mg Oral TabletIndications:B ilateral hip pain Take 1 tablet by mouth once daily 30 Tablet 11/17/2023 documented in this encounter Plan of Treatment Upcoming Encounters Date Type Department Care Team (Late st Contact Info) Description 07/29/2024 9:00 AM EST Appointment [facility] [address] [place], [place] [id number] Jomar Kim MD [address] [place] [address] documented as of this encounter Goals Goal Patient Goal Type Associated Problems Recent Progress Patient-Stated? Author Blood Pressure < 140/90 Blood Pressure 110/72(04/09 2:44 PM EDT) No Rachel Rogers RMA BMI (Calculated) < 30 General 50.9(2023 2:44 PM EDT) No Rachel Rogers RMA Eat better, exercise, reach an ideal body weight General No Ni Clinton, information clerk automobile club Healing General On track(12/03 9:18 AM EDT) [...] neuropathy weekly. ?? Refer to PCP and/or Curling Machine Operator, Vascular Specialist as indicated. ?? Monitor [...] as of this encounter Visit Diagnoses Diagnosis Bilateral hip pain Pain in joint, pelvic region and thigh documented in this encounter Discontinued Medications Medication Sig Discontinue Reason Start Date End Da te meloxicam (MOBIC) 15 mg Oral TabletIndications:Bilate ral hip pain Take 1 Tablet by mouth daily. 07/19/2023 11/17/2023 documented as of this encounter Additional Health Concerns Assessment Noted Time A fall risk assessment has been complete d for the patient 11/08/2023 9:11 AM EST documented as of this encounter Care Teams Eating Disorder Psychologist Relationship Specialty Start Date End Date Cristiane Shirley MD [address] [place] [address] PCP - General Family Medicine 08/20/18 12/29/23 Garett Holt MD Internal Medicine-Gastroenterology 12/22/12 Ruiz Stokes MD [address] [place] [address] Internal Medicine-Cardiovascular Disease 07/25/14 Yenny Schwab MD [address] [address] Internal Medicine-Rheumatology 12/11/16 documented as of this encounter
--- OUTSIDE RECORDS SUMMARY | 2024-07-22 15:58 | XMS_ITS | Encounter Summary ---
Author Organization [place] [address] Care Team Providers Care Rn Hedis Name Role Phone Garett Holt MD Unavailable [phone] Ruiz Stokes MD Unavailable [phone] Yenny Schwab MD Unavailable [phone] Cristiane Shirley MD Primary Care Provider [phone] Encounter Details Date Type Department Care Team (Latest Contact Info) Description 09/15/2023 7:44 AM EST - 09/15/2023 11:59 PM EST Hospital Encounter GRT XRAY [address] [place] [address] Palpitations; Encounter to establish care; Shortness of breath; Atypical angina Discharge Disposition: Home or Self Care Social [...] Date Recorded PHQ-2 Total Score 0 12/21/2022 [facility] - Occupational Stress Questionnaire Answer [...] Lisa Mccartney MA documented in this encounter Medications at [...] 90 Tablet 2 02/10/2023 Blood Sugar Diagnostic [facility] StripIndications: Type 2 diabetes mellitus without complication, without long-term current use of insulin (HCC) 1 Strip by [facility].(Non-Drug; Combo Route) route 2 times daily. Per formulary. Dx: E11.9 100 Each 11 08/05/2022 Blood-Glucose Meter [facility] KitIndications:Ty pe 2 diabetes mellitus without complication, without long-term current use of insulin (HCC) Per formulary. Dx. E11.9 1 Kit 08/05/2022 Blood-Glucose Meter,Continuous (DEXCOM G7 MIXED CROP AND LIVESTOCK FARMER) [facility] MiscIndications:T ype 2 diabetes mellitus without complication, without long-term current use of insulin (HCC),Severe diabetic hypoglycemia (HCC) 1 Each by [facility]Non-Drug; Combo Route) route as needed. 1 Each 11 06/27/2023 Blood-Glucose Sensor (DEXCOM G7 SENSOR) [facility] DeviceIndications :Type 2 diabetes mellitus without complication, without long-term current use of insulin (HCC),Severe diabetic hypoglycemia (HCC) 1 Each by [facility].(Non-Drug; Combo Route) route as needed. 1 Each 11 06/27/2023 CALCIUM ORAL Take 1 Tab by mouth daily. cholecalciferol, vitamin D3, (VITAMIN D3) 25 mcg (1,000 unit) Oral Tablet Take 1 Tab by mouth daily. 30 Tab 11 09/14/2019 docusate sodium (COLACE) 100 mg Oral Capsule Take 1 Capsule by mouth 2 times daily. 60 Capsule 2 03/31/2023 fluticasone propionate (FLONASE) 50 mcg/actuation Nasl [place], SuspensionIndicat ions:ETD (Eustachian tube dysfunction), right Use 1 spray(s) in each nostril once daily 16 g 10/17/2022 Lancets [facility] MiscIndications:T ype 2 diabetes mellitus without complication, without long-term current use of insulin (HCC) 1 Each by [facility].(Non-Drug; Combo Route) route 2 times daily. Per formulary. Dx: E11.9 100 Each 11 08/05/2022 loratadine (CLARITIN) 10 mg Oral TabletIndications :Seasonal allergic rhinitis due to pollen Take 1 tablet by mouth once daily 63 Tablet 12/24/2021 Nebulizer Accessories [facility] KitIndications:Ac kamila bronchitis, unspecified organism Nebulizer accessories [...] 07/19/2023 ONETOUCH DELICA PLUS LANCET 33 gauge [facility] USE TO CHECK GLUCOSE TWICE DAILY 11/08/2022 oxybutynin (DITROPAN-XL) 10 mg Oral Tablet Extended Rel 24 hr Take 1 Tablet by mouth daily. 90 Tablet 2 12/06/2021 tiZANidine (ZANAFLEX) 4 mg Oral TabletIndications :Muscle [...] if needed. 60 Tablet 2 05/27/2023 4 meloxicam (MOBIC) 15 mg Oral TabletIndications :Bilateral hip pain Take 1 Tablet by mouth daily. 30 Tablet 2 07/19/2023 4 spironolactone (ALDACTONE) 25 mg Oral Tablet Take 1 Tablet by mouth daily. 90 Tablet 08/07/2023 4 documented as of this encounter Discharge Disposition Disposition Code Departure Means Destination Home or Self Care documented in this encounter Plan of Treatment Upcoming Encounters Date Type Department Care Team (Late st Contact Info) Description 07/29/2024 9:00 AM EST Appointment [facility] [address] [place] [address] Jomar Kim MD [address] [place] [address] documented as of this encounter Goals Goal Patient Goal Type Associated Problems Recent Progress Patient-Stated? Author Blood Pressure < 140/90 Blood Pressure 110/72(04/09 2:44 PM EDT) No Rachel Rogers RMA BMI (Calculated) < 30 General 50.9(2023 2:44 PM EDT) No Rachel Rogers RMA Eat better, exercise, reach an ideal body weight General No Ni Clinton, unemployment insurance director Healing General On track(12/03 9:18 AM EDT) [...] neuropathy weekly. ?? Refer to PCP and/or District Customs Director, Vascular Specialist as indicated. ?? Monitor patient [...] Name Priority Date/Time Associated Diagnosis Comments XR CHEST PA AND LATERAL Routine 09/15/2023 8:18 AM EST Palpitations Encounter to establish care Shortness of breath Atypical angina documented in this encounter Results * XR CHEST PA AND LATERAL (09/15/2023 8:18 AM EST) Anatomical Region Laterality Modality Chest Radiographic Faby ging 09/15/2023 8:18 AM EST Impressions 09/15/2023 8:28 AM EST No acute finding. - Note: Radiology results need to be interpreted within a comprehensive clinical context. ??If you have questions about the radiology report, please contact the office of the ordering clinician. Narrative 09/15/2023 8:28 AM EST PA AND LATERAL CHEST X-RAY, ??09/15/2023 8:18 AM CLINICAL HISTORY: ??R00.5-Brbxxmqbyoje-WVY-10-CM Z76.89-Persons encountering health services in other specified btvzyayslitry-JKO-45-CM R06.02-Shortness of otuaxh-GPU-80-CM I20.89-Other forms of angina zjyzduzf-PIS-98-CM COMPARISON: ??04/21/20. PROCEDURE COMMENTS: Frontal and lateral views of the chest. FINDINGS: Cardiovascular structures within normal limits. ??No pneumonia or effusion. ??No pneumothorax. Procedure Note Perla Schroeder MD - 09/15/2023 PA AND LATERAL CHEST X-RAY, 09/15/2023 8:18 AM CLINICAL HISTORY: R00.6-Kvahmkrkxyjy-DNI-10-CM Z76.89-Persons encountering health services in other specified qofgriadxccpe-XDF-94-CM R06.02-Shortness of sbysvn-ELZ-16-CM I20.89-Other forms of angina prxgxywi-VPM-52-CM COMPARISON: 04/21/20. PROCEDURE COMMENTS: Frontal and lateral views of the chest. FINDINGS: Cardiovascular structures within normal limits. No pneumoniaor effusion. No pneumothorax. IMPRESSION: No acute finding. - Note: Radiology results need to be interpreted within a comprehensiveclinical context. If you have questions about the radiology report, please contactthe office of the ordering clinician. 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 documented in this encounter Additional Health Concerns Infection Onset Date Last Indicated Resolved Time COVID-19 08/30/2023 08/30/2023 09/19/2023 10:1 2 PM EST Assessment Noted Time A fall risk assessment has been complete d for the patient 07/27/2022 10:00 AM EST documented as of this encounter Care Teams Rn Hedis Relationship Specialty Start Date End Date Cristiane Shirley MD [address] [place] [address] PCP - General Family Medicine 08/20/18 12/29/23 Garett Holt MD Internal Medicine-Gastroenterology 12/22/12 Ruiz Stokes MD [address] [place] [id number] Internal Medicine-Cardiovascular Disease 07/25/14 Yenny Schwab MD [address] [facility] [address] [place] [address] Internal Medicine-Rheumatology 12/11/16 documented as of this encounter
--- OUTSIDE RECORDS SUMMARY | 2024-07-22 15:58 | XMS_ITS | Encounter Summary ---
Author Organization [place] [address] Care Team Providers Care Moisture Meter Operator Name Role Phone Garett Holt MD Unavailable [phone] Ruiz Stokes MD Unavailable [phone] Yenny Schwab MD Unavailable [phone] Cristiane Shirley MD Primary Care Provider [phone] Reason for Visit * Reason Onset Date Comments Release of Information 07/17/2023 medical r ecords Encounter Details Date Type Department Care Team (Late st Contact Info) Description 07/17/2023 Telephone [facility] [address] [place] [address] Cristiane Shirley MD [address] [place] [address] Release of Information (medical records) Social History Tobacco Use Types Packs/Day Years [...] encounter Miscellaneous Notes * Telephone Encounter - Anahi Redd MA - 07/18/2023 8:57 AM EST Faxed. * Telephone Encounter - Castillo Mramolejo COA - 07/17/2023 11:12 AM EST Select the most appropriate reason for this telephone message: Other Who is calling (name & relationship to patient if not the patient): elina with [facility]/appeal department What is needed OR why are they calling: medical records When is this needed by: yodit Where does this information need to go: [phone] Additional information: medical records pertaining to prescription request to monitor glucose documented in this encounter Plan of Treatment Upcoming Encounters Date Type Department Care Team (Late st Contact Info) Description 07/29/2024 9:00 AM EST Appointment [facility] [address] [place] [address] Jomar Kim MD [address] [place] [address] documented as of this encounter [...] neuropathy weekly. ?? Refer to PCP and/or Head Sulfide Operator, Vascular Specialist as indicated. ?? Monitor [...] filedocumented in this encounter Additional Health Concerns Infection Onset Date Last Indicated Resolved Time COVID-19 08/30/2023 08/30/2023 09/19/2023 10:1 2 PM EST Assessment Noted Time A fall risk assessment has been complete d for the patient 07/27/2022 10:00 AM EST documented as of this encounter Care Teams Moisture Meter Operator Relationship Specialty Start Date End Date Cristiane Shirley MD [address] [place] [address] PCP - General Family Medicine 08/20/18 12/29/23 Garett Holt MD Internal Medicine-Gastroenterology 12/22/12 Ruiz Stokes MD [address] [place], [place] [id number] Internal Medicine-Cardiovascular Disease 07/25/14 Yenny Schwab MD [address] [facility] Building [address] [place] [id number] Internal Medicine-Rheumatology 12/11/16 documented as of this encounter
--- OUTSIDE RECORDS SUMMARY | 2024-07-22 15:58 | XMS_ITS | Encounter Summary ---
Author Organization [place] [address] Care Team Providers Care Barrel Repairer Name Role Phone Garett Hlot MD Unavailable [phone] Ruiz Sotkes MD Unavailable [phone] Yenny Schwab MD Unavailable [phone] Crsitiane Shirley MD Primary Care Provider [phone] Reason for Visit * Reason Onset Date Comments Samples 08/15/2023 Jardiance Encounter Details Date Type Department Care Team (Late st Contact Info) Description 08/15/2023 Telephone [facility] [address] [place] [address] Cristiane Shirley MD [address] [place], [place] [id number] Samples (Jardiance) Social History Tobacco Use Types Packs/Day Years [...] Date Recorded PHQ-2 Total Score 0 12/21/2022 [facility] - Occupational Stress Questionnaire Answer Date [...] Refills Last Filled Start Date End Date empagliflozin (JARDIANCE) 10 mg Oral Tablet Take 1 Tablet by mouth daily. 21 Tablet 08/15/2023 10/28/2023 documented in this encounter Miscellaneous Notes * Addendum Note - Chelly Oliva MA - 08/15/2023 5:27 PM ESTAddended by: CHELLY OLIVA on: 08/15/2023 05:27 PM Modules accepted: Orders * Telephone Encounter - Chelly Oliva MA - 08/15/2023 5:27 PM EST No answer,LVM * Telephone Encounter - Ana Corral - 08/15/2023 10:27 AM EST Select the most appropriate reason for this telephone message: Samples Medication(s): JARDIANCE 10 mg Oral Tablet [[id number]] DISCONTINUED Order Details Dose: 10 mg Route: Oral Frequency: DAILY Dispense Quantity: 90 Tablet Refills: 0 Prescribing Provider: Dr. Shirley Is this medication on the current medication list? No Why do you need samples? Financial reasons Last appointment date: 06-27-23 Additional notes:Pt's sister,Kira called stating the pt has been feeling sick and not eating without her Jardiance medication and that she has not been taking it due to the cost. She would like toknow if there are any samples the pt can have.Please advise. Kira:[phone] documented in this encounter Plan of Treatment Upcoming Encounters Date Type Department Care Team (Late st Contact Info) Description 07/29/2024 9:00 AM EST Appointment [facility] [address] [place] [address] Jomar Kim MD [address] [place] [address] documented as of this encounter Goals Goal Patient Goal Type Associated Problems Recent Progress Patient-Stated? Author Blood Pressure < 140/90 Blood Pressure 110/72(04/09 2:44 PM EDT) No Rachel Rogers RMA BMI (Calculated) < 30 General 50.9(2023 2:44 PM EDT) No Rachel Rogers RMA Eat better, exercise, reach an ideal body weight General No Ni Clinton, safety advisor Healing General On track(12/03 9:18 AM EDT) [...] neuropathy weekly. ?? Refer to PCP and/or Search Engine Marketing Specialist, Vascular Specialist as indicated. ?? [...] documented as of this encounter Care Teams Barrel Repairer Relationship Specialty Start Date End Date Cristiane Shirley MD [address] [place] [address] PCP - General Family Medicine 08/20/18 12/29/23 Garett Holt MD Internal Medicine-Gastroenterology 12/22/12 Ruiz Stokes MD [address] [place] [address] Internal Medicine-Cardiovascular Disease 07/25/14 Yenny Schwab MD [address] [address] Internal Medicine-Rheumatology 12/11/16 documented as of this encounter
--- OUTSIDE RECORDS SUMMARY | 2024-07-22 15:58 | XMS_ITS | Encounter Summary ---
Author [place] [address] Care Team Providers Care Inspector Balance Bridge Name Role Phone Garett Holt MD Unavailable [phone] Ruiz Stokes MD Unavailable [phone] Yenny Schwab MD Unavailable [phone] Cristiane Shirley MD Primary Care Provider [phone] Reason for Visit * Reason Comments Annual Exam Vomiting Wheezing Encounter Details Date Type Department Care Team (Late st Contact Info) Description 07/19/2023 11:00 AM EST [facility] [address] [place] [address] Abel Pretty MD [address] [place] [address] Annual physical exam (Primary Dx); Chronic bronchitis, unspecified chronic bronchitis type (HCC); Nausea and vomiting, unspecified vomiting type; Bilateral hip pain Social History Tobacco Use Types Packs/Day [...] Date Recorded PHQ-2 Total Score 0 12/21/2022 [facility] - Occupational Stress Questionnaire Answer Date [...] Sign Reading Time Taken Comments Blood Pressure 112/64 07/19/2023 11:18 AM EST Pulse - - Temperature 36.7 ??C (98 ??F) 07/19/2023 11:18 AM EST Respiratory Rate - - Oxygen Saturation - - Inhaled Oxygen Concentration - - Weight 115.7 kg (255 lb) 07/19/2023 11:18 AM EST Height 162.6 cm (5' 4 ) 07/19/2023 11:18 AM EST Body Mass Index 43.77 07/19/2023 11:18 AM EST documented in this encounter Functional Status * [...] Refills Last Filled Start Date End Date albuterol (PROVENTIL HFA;VENTOLIN HFA) 90 mcg/actuation Inhl HFA Aerosol InhalerIndications :Chronic bronchitis, unspecified chronic bronchitis type (HCC) Inhale 2 Puffs into the lungs every 4 hours as needed for Wheezing. 1 Each 2 07/19/2023 ondansetron (ZOFRAN-ODT) 4 mg Oral Tablet, Rapid DissolveIndication s:Nausea and vomiting, unspecified vomiting type Take 1 Tablet by mouth every 8 hours as needed for Nausea. 15 Tablet 07/19/2023 meloxicam (MOBIC) 15 mg Oral TabletIndications: Bilateral hip pain Take 1 Tablet by mouth daily. 30 Tablet 2 07/19/2023 11/17/2023 meloxicam (MOBIC) 15 mg Oral TabletIndications: Bilateral hip pain Take 1 Tablet by mouth daily. 30 Tablet 2 07/19/2023 07/19/2023 ondansetron (ZOFRAN-ODT) 4 mg Oral Tablet, Rapid DissolveIndication s:Nausea and vomiting, unspecified vomiting type Take 1 Tablet by mouth every 8 hours as needed for Nausea. 15 Tablet 07/19/2023 07/19/2023 albuterol (PROVENTIL HFA;VENTOLIN HFA) 90 mcg/actuation Inhl HFA Aerosol InhalerIndications :Chronic bronchitis, unspecified chronic bronchitis type (HCC) Inhale 2 Puffs into the lungs every 4 hours as needed for Wheezing. 1 Each 2 07/19/2023 07/19/2023 documented in this encounter Progress Notes * Abel Pretty MD - 07/19/2023 11:00 AM EST Vitals: 07/19/23 1118 BP: 112/64 Temp: 98 ??F (36.7 ??C) Weight: 255 lb (115.7 kg) Height: 5' 4 (1.626 m) SUBJECTIVE: Chief Complaint Patient presents with Annual Exam Vomiting Wheezing HPI: Medicare Wellness Assessment: Subsequent Annual Medicare Wellness Assessment. Risk Assessments: Fall Risk Assessment Has the patient had any fall with injury in the past year?: No Has the patient had 2 or more falls in the past year?: No Is the patient able to sit without assistance?: (!) No Is the patient able to get up without assistance?: (!) No Does the patient have a difficult time ambulating when first getting up?: (!) Yes Does the patient have rugs or runners in the home?: No Does the patient have grab bars in the bathroom?: Yes Does the patient have stairs in the home?: No Functional Status Assessment Functional Level: self care Functional Mobility Assessment: (!) mobile with cane/walker Assessment of transportation needs: (!) dependent on other/public transportation Functional Activities of Daily Living Limitations: (!) ambulation; bathing/hygiene; shopping; housework; laundry Bladder: Do you have issues with your bladder, such as urgency or leaking urine?: Significant issues Does the patient report issues or concerns regarding hearing?: No Activities of Daily Living Assistive Device Assessment Assistive Devices: Cane; Walker Osteoporosis Screening Assessment Has the patient had a DEXA (Bone Density) scan in the past 2 years?: (!) No Results for orders placed during the hospital encounter of 01/30/17 DX BONE DENSITY AXIAL SKELETON Narrative Indication: The patient is presently being monitored while on treatment and requires a bone density assessment. Study was performed on [employer]. Bone Density: Region BMD T-score Z-score AP Spine (L1-L4) 1.045 0.0 1.4 Femoral Neck (Left) 0.777 -0.6 0.7 Total Hip (Left) 0.997 0.5 1.4 Femoral Neck (Right) 0.834 -0.1 1.2 Total Hip (Right) 1.010 0.6 1.5 1/3 Radius (Left) 0.729 0.6 1.9 World Health Organization criteria for BMD interpretation classify patients as: Normal (T-score at or above -1.0), Low Bone Density (T-score between -1.0 and -2.5), or Osteoporotic (T-score at or below -2.5). T Scores are reported in Postmenopausal women and in men age 50 and older. Z-scores are reported in females prior to menopause and in males younger than age 50. 10-year Fracture Risk: FRAX not reported because: All T-scores for Spine Total, Hip Total, Femoral Neck at or above -1.0 Treated for osteoporosis Clinical Information Provided by Patient: [...] TH value. Reported by: Amy Guerin PA-C, JOSSY on 01/30/2017 3:24:00 PM. Abnormal Pains Assessment Excluding what you would consider normal aches and pains for your age and medical condition, do youhave any unusual or worrisome pains?: No Opiate Screening Are you currently on opiate or narcotic medications?: No PHQ Depression Screening Results Little interest or pleasure in doing things: 0 Feeling down, depressed, or hopeless: 0 PHQ-2 Total Score: 0 PHQ-9 Total Score: 0 Advanced Directive Evaluation Does the patient have an Advance Directive?: (!) Yes, but not on file (Please bring your Advance Directive to your next office visit) (For Dementia Screening below can use either AD-8 or Mini Cog. Doesn't require both.) AD-8 Dementia Screening tool results Problems with judgement: 0 Less interest in hobbies/activities: 0 Repeats the same things over and over: 0 Trouble learning how to use a tool, appliance or gadget: (!) 1 Forgets correct month or year: 0 Trouble handling complicated financial affairs: 0 Trouble remembering appointments: 0 Daily problems with thinking and/or memory: (!) 1 Total AD8 score:: (!) 2 Mini Cog Dementia Screening tool results Welcome to Medicare Vision Screening Eye Exam : Not applicable/required for Subsequent AWV, only required for Welcome to Medicare Visit Patient Instructions AWV findings and Plan of Care: Recommendations as part of the Personal Plan of Care based on risk screening assessments are: Fall Risk Assessment: Fall Risk Assessment: negative - re-assess in 1 year Functional Status/Social Determinates of Health: stable, no issues, re-assess in 1 year Depression Screening: negative - re-assess in 1 year Dementia Screening: negative - recommend re-assess in 1 year Vaccinations: up to date Exercise/Activity: recommended continuing current Recommended follow up annually for Medicare Annual Wellness Visit. Good preventative health care is important in reducing morbidity and mortality. I recommend exercise regularly as tolerated focusing on strength and balance. I recommend a balanced diet focusing on fruits, veggies, and lean meats. I recommend avoiding having rugs, runners, or other loose trip hazards in the home as these increase fall risk. I recommend installing grab bars in the bathrooms close to toilets, in tubs, and in showers as these are common areas for falls when transitioning from wet surfaces to dry surfaces, or visa versa. This is also an area of the home that is high risk for falls at night. I encourage having an Advanced Directives. This is something we recommend you have on file at home,as well as something that we should have on file in our records. If we don't have a copy of your current Advanced Directive, please bring a copy to your next visit. If you have a power of managing attorney orsurrogate, we should also have a copy on file. I encourage candid discussion with your family on your wishes in the event that you are incapacitated and unable to participate in direct medical decision making. It is important to stay up to date on recommended vaccinations, please see the health maintenance topics due below and if we have not completed one of those topics today, please consider completing as part of your wellness plan this year. Below are other health maintenance topics that are recommended to be closed at your earliest opportunity. You may notice that some of these were addressed in the office today and will show as resolved in your [facility] account soon. Health Maintenance Due Topic Date Due RSV or 60+ (1 - 1-dose 60+ series) Never done Hepatitis B Vaccine (1 of 3 - Risk 3-dose series) Never done Breast Cancer Screening 11/14/2017 Zoster (2 of 2) 01/26/2022 Colon Cancer Screening 02/17/2023 COVID-19 Vaccine ( season) 2023 As part of today's visit the components of the Medicare wellness assessment were completed. These components included reviewing the information available in the risk screening questionnaire that was administered by ancillary staff either today or prior to today's visit (pre-visit planning) and recorded in the Medicare Wellness Assessment Flowsheet in the EMR. I have reviewed the data in regards to fall risk, activities of daily living/functional status, depression screening, dementia screening,and outstanding Health Maintenance topics and edited where necessary. The staff has reviewed and updated the past medical history, social history, family history, allergies, medications, and care team information during the standard rooming process. I have also reviewed this data as part of today'svisit. Below are the findings, recommendations, and Personal Plan of Care. The patient received a copy of their Personal Plan of Care including health maintenance topics thatare recommended to be completed and this can be noted in the after visit summary. The AVS is provided to the patient digitally through their MyChart account or with a paper copy if the patient doesn't have an active MyChart Account. A copy of today's progress note with recommendations below is alsoavailable electronically for patients with an active MyChart account per the Federal Cures Act. TheAVS also contains additional patient education if appropriate on topics common to wellness and their plan of care. History Reviewed: No results found. No results found for this visit on 07/19/23. Patient Active Problem List Diagnosis Osteoarthrosis, unspecified whether generalized or localized, unspecified site Ventral hernia HAMIDA (obstructive sleep apnea) History of endometrial cancer Temporal arteritis (HCC) Type 2 diabetes mellitus without complication (HCC) Obesity, Class III, BMI 40-49.9 (morbid obesity) (HCC) Atherosclerosis of aorta (HCC) PMR (polymyalgia rheumatica) (HCC) Incisional hernia, incarcerated Periumbilical abdominal pain Epigastric pain Chronic bronchitis (HCC) Past Medical History: Diagnosis Date Anemia on iron Ankle swelling Arthritis all over Asthma Cancer (HCC) OVARIAN Clotting disorder (HCC) Diabetes mellitus (HCC) 2013 borderline, type 2 Fibromyalgia Heartburn nausea after eating Hiatal hernia Hyperlipidemia Hypertension Neuromuscular disorder (HCC) fatty tissue muscle left arm Other and unspecified angina pectoris Shortness of breath Sleep apnea SHOULD WEAR CPAP OR BIPAP PER PATIENT Ulcer Past Surgical History: Procedure Laterality Date ARTERY BIOPSY Right 01/06/2017 RIGHT TEMPORAL ARTERY BIOPSY ; Surgeon: Christa Chavez MD; Location: [facility] MAIN OR; Service: General CARDIAC CATHETERIZATION 04/2015 CHOLECYSTECTOMY 1990 COLONOSCOPY COLONOSCOPY 02/17/2013 Surgeon: Garett Holt MD; Location: [facility]; Service: DENTAL SURGERY upper and lower teeth removed UPPER GASTROINTESTINAL ENDOSCOPY UPPER GASTROINTESTINAL ENDOSCOPY 02/17/2013 Surgeon: Garett Holt MD; Location: [facility]; Service: UPPER GASTROINTESTINAL ENDOSCOPY N/A 07/26/2020 ESOPHAGOGASTRODUODENOSCOPY with biopsy; Surgeon: Jomar Kim MD; Location: [facility] END[facility]COPY; Service: Endoscopy VENTRAL HERNIA REPAIR N/A 04/18/2020 DAVINCI ROBOTIC VENTRAL HERNIA REPAIR WITH MESH ; Surgeon: Regan Butts MD; Location: [facility]; Service: General Allergies Allergen Reactions Spironolactone Nausea And Vomiting and Myalgia Amitriptyline Nausea And Vomiting Amoxil [Amoxicillin] Hives Clarithromycin hives Clindamycin Nausea Only Egg Nausea Only Naproxen Rash Nexium [Esomeprazole Magnesium] Hives and Rash Blisters in Mouth Current Outpatient Medications on File Prior to Visit Medication Sig Dispense Refill albuterol (PROVENTIL) 2.5 mg /3 mL (0.083 %) Inhl Solution for Nebulization Take 3 mL by nebulization every 4 hours as needed for Wheezing. 1 box 6 amLODIPine (NORVASC) 10 mg Oral Tablet Take 1 Tablet by mouth daily. 91 Tablet 1 aspirin 81 mg Oral Tablet, Delayed Release (E.C.) Take 1 Tablet by mouth daily. 90 Tablet 2 atorvastatin (LIPITOR) 20 mg Oral Tablet Take 1 Tablet by mouth daily. 30 Tablet 2 Blood Sugar Diagnostic Misc Strip 1 Strip by Mis.(Non-Drug; Combo Route) route 2 times daily. Per formulary. Dx: E11.9 100 Each 11 Blood-Glucose Meter Misc Kit Per formulary. Dx. E11.9 1 Kit 0 Blood-Glucose Meter,Continuous (DEXCOM G7 LINE PALLETIZER) [facility] [place]isc 1 Each by Misc.(Non-Drug; Combo Route) route as needed. 1 Each 11 Blood-Glucose Sensor (DEXCOM G7 SENSOR) Misc Device 1 Each by Misc.(Non-Drug; Combo Route) route asneeded. 1 Each 11 CALCIUM ORAL Take 1 Tab by mouth daily. cholecalciferol, vitamin D3, (VITAMIN D3) 25 mcg (1,000 unit) Oral Tablet Take 1 Tab by mouth daily. 30 Tab 11 docusate sodium (COLACE) 100 mg Oral Capsule Take 1 Capsule by mouth 2 times daily. 60 Capsule 2 fluticasone propionate (FLONASE) 50 mcg/actuation Nasl [place], Suspension Use 1 spray(s) in each nostril once daily 16 g 0 fUROsemide (LASIX) 40 mg Oral Tablet One tab daily and may take an extra if needed. 60 Tablet 2 JARDIANCE 10 mg Oral Tablet Lancets [facility] 1 Each by [facility]Non-Drug; Combo Route) route 2 times daily. Per formulary. Dx: E11.9 100 Each 11 lisinopriL (PRINIVIL;ZESTRIL) 10 mg Oral Tablet loratadine (CLARITIN) 10 mg Oral Tablet Take 1 tablet by mouth once daily 63 Tablet 0 Nebulizer Accessories [facility] Kit Nebulizer accessories 1 Kit 0 olopatadine (PATANOL) 0.1 % Opht Drops Place 1 Drop into both eyes 2 times daily. Administer drops in both eyes. 5 mL 0 ONETOUCH DELICA PLUS LANCET 33 gauge [facility] USE TO CHECK GLUCOSE TWICE DAILY oxybutynin (DITROPAN-XL) 10 mg Oral Tablet Extended Rel 24 hr Take 1 Tablet by mouth daily. 90 Tablet 2 pantoprazole (PROTONIX) 40 mg Oral Tablet, Delayed Release (E.C.) spironolactone (ALDACTONE) 25 mg Oral Tablet tiZANidine (ZANAFLEX) 4 mg Oral Tablet Take 1 Tablet by mouth 3 times daily as needed. 30 Tablet 0 trospium (SANCTURA) 20 mg Oral Tablet Take 1 Tablet by mouth 2 times daily. 60 Tablet 5 No current facility-administered medications on file prior to visit. Social History Socioeconomic History Marital status: Spouse name: None Number of children: 2 Years of education: None Highest education level: None Occupational History Occupation: disabled Tobacco Use Smoking status: Former Current packs/day: 0.00 Average packs/day: 1.5 packs/day for 13.0 years (19.5 ttl pk-yrs) Types: Cigarettes Start date: 09/08/1971 Quit date: 09/07/1984 Years since quittin.8 Passive exposure: Current Smokeless tobacco: Never Vaping Use Vaping Use: Never used Substance and Sexual Activity Alcohol use: No [...] min Stress: No Stress Concern Present (02/07/2021) [facility] - Occupational Stress Questionnaire Feeling of Stress : Only a little Family History Problem Relation Age of Onset Heart Disease Father Cataracts Father Diabetes Father Cancer Maternal Grandmother Colon Cancer Maternal Grandmother Anesth Problems Neg Hx Immunization History Administered Date(s) Administered Influenza Virus Vaccine Quadrivalant, Flublok 06/10/2019 Moderna SARS-CoV-2 Vaccine 12+ Yrs (Light blue border) 12/17/2020, 01/14/2021 Pneumococcal Conjugate Vaccine 20 Valent 05/31/2023 Pneumococcal Polysaccharide 23 Valent 11/15/2015, 12/01/2021 Quadrivalent Influenza High Dose 07/14/2021, 06/08/2022, 05/31/2023 Tdap 01/06/2013, 05/31/2023 Zoster Recombinant 12/01/2021 Health Maintenance Topic Date Due RSV or 60+ (1 - 1-dose 60+ series) Never done Hepatitis B Vaccine (1 of 3 - Risk 3-dose series) Never done Breast Cancer Screening 11/14/2017 Zoster (2 of 2) 01/26/2022 Colon Cancer Screening 02/17/2023 COVID-19 Vaccine (3 - 2022- season) 2023 Hemoglobin A1c 11/29/2023 Microalbuminuria 01/11/2024 Lipids 05/31/2024 Wellness Exam Medicare 06/27/2024 Diabetic Eye Exam 07/28/2024 DTaP/TDaP/Td (3 - Td or Tdap) 05/31/2033 Influenza Vaccine Completed Bone Density Screening Completed Hepatitis C Screening Completed Pneumococcal Vaccine 65+ Completed Patient Care Team: Cristiane Shirley MD as PCP - General (Family Medicine) Garett Holt MD (Internal Medicine-Gastroenterology) Ruiz Stokes MD (Internal Medicine-Cardiovascular Disease) Yenny Schwab MD (Internal Medicine-Rheumatology) Additional issues addressed today: Wheezing This is a new problem. The current episode started 1 to 4 weeks ago. The problem has been waxing and waning. Associated symptoms include vomiting. Nothing aggravates the symptoms. She has tried nothing for the symptoms. Emesis This is a new problem. Episode onset: 2 weeks. The problem has been unchanged. The emesis has an appearance of stomach contents. She has tried nothing for the symptoms. Wants inhaler. Pt reports vomiting every time she eats. She states the pharmacist told her it could be some of hermedications interacting. No abdominal pain, no diarrhea. Diabetes: Alyssa following up today for diabetes. Current symptoms/problems include none. Current monitoring regimen: daily 113-140 Home blood sugar records: trend: stable Any episodes of hypoglycemia? no On insulin? No Weight trend: Body mass index is 43.77 kg/m??. Wt Readings from Last 3 Encounters: 07/19/23 255 lb (115.7 kg) 05/31/23 255 lb 9.6 oz (115.9 kg) 04/28/23 256 lb (116.1 kg) A1c trend: Lab Results Component Value Date HGBA1C 6.0 (H) 05/31/2023 HGBA1C 6.1 (H) 07/27/2022 HGBA1C 5.6 02/24/2021 Renal trend: Lab Results Component Value Date GFRAFRAM 96 02/24/2021 GFRAFRAM 104 05/18/2020 GFRAFRAM 113 04/27/2020 Lab Results Component Value Date GFRNONAFRAM 83 02/24/2021 GFRNONAFRAM 90 05/18/2020 GFRNONAFRAM 98 04/27/2020 Lab Results Component Value Date GFRCKDEPI 73 05/31/2023 GFRCKDEPI 80 07/27/2022 GFRCKDEPI 96 11/24/2021 Lipid trend: Lab Results Component Value Date [...] medications/treatments. Diet has been reviewed with patient. GERD: Following up for GERD. Requires medication for symptom control daily. Feels that symptoms areadequately controlled with current treatment. She does modify diet to avoid symptoms. Review of Systems Gastrointestinal: Positive for vomiting. Neurological: Positive for weakness. OBJECTIVE: Physical Exam Vitals reviewed. Constitutional: General: [...] normal. Palpations: Abdomen is soft. Musculoskeletal: General: Normal range of motion. Skin: General: Skin is warm. Findings: No rash. Neurological: Mental Status: She is alert. Psychiatric: Mood and Affect: Mood normal. Thought Content: Thought content normal. Assessment Diagnoses and all orders for this visit: Annual physical exam Immunizations reviewed Cancer screening guidelines reviewed Labs reviewed. Chronic bronchitis, unspecified chronic bronchitis type (HCC) (Chronic) - albuterol (PROVENTIL HFA;VENTOLIN HFA) 90 mcg/actuation Inhl HFA Aerosol Inhaler; Inhale 2 Puffs into the lungs every 4 hours as needed for Wheezing. Dispense: 1 Each; Refill: 2 Nausea and vomiting, unspecified vomiting type - ondansetron (ZOFRAN-ODT) 4 mg Oral Tablet, Rapid Dissolve; Take 1 Tablet by mouth every 8 hours as needed for Nausea. Dispense: 15 Tablet; Refill: 0 - COMPREHENSIVE METABOLIC PANEL; Future - CBC WITH DIFF; Future Bilateral hip pain - meloxicam (MOBIC) 15 mg Oral Tablet; Take 1 Tablet by mouth daily. Dispense: 30 Tablet; Refill: 2 documented in this encounter Plan of Treatment Upcoming Encounters Date Type Department Care Team (Late st Contact Info) Description 07/29/2024 9:00 AM EST Appointment [facility] [address] [place] [address] Jomar Kim MD [address] [place] [address] documented as of this encounter Goals Goal Patient Goal Type Associated Problems Recent Progress Patient-Stated? Author Blood Pressure < 140/90 Blood Pressure 110/72(04/09 2:44 PM EDT) No Rachel Rogers RMA BMI (Calculated) < 30 General 50.9(2023 2:44 PM EDT) No Rachel Rogers RMA Eat better, exercise, reach an ideal body weight General No Ni Clinton, slitter scorer Healing General On track(12/03 9:18 AM EDT) [...] neuropathy weekly. ?? Refer to PCP and/or X Ray Operator, Vascular Specialist as indicated. ?? Monitor [...] Rogers RMA documented as of this encounter Results * (ABNORMAL) CBC WITH DIFF (11/09/2023 3:04 PM EST) WBC 9.1 3.7 - 10.3 x10(3)/mcL 11/09/2023 7:59 PM EST [facility] RBC 3.94 3.90 - 5.20 x10(6)/mcL 11/09/2023 7:59 PM EST [facility] Hgb 10.6(L) 11.2 - 15.7 g/dL 11/09/2023 7:59 PM EST [facility] Hct 35.9 34.0 - 45.0 % 11/09/2023 7:59 PM EST [facility] MCV 91.1 80.0 - 100.0 fL 11/09/2023 7:59 PM EST [facility] MCH 26.9 26.0 - 34.0 pg 11/09/2023 7:59 PM EST [facility] MCHC 29.5(L) 30.7 - 35.5 g/dL 11/09/2023 7:59 PM EST [facility] RDW 14.1 <=14.9 % 11/09/2023 7:59 PM EST [facility] Platelet 248 155 - 369 x10(3)/mcL 11/09/2023 7:59 PM EST [facility] MPV 10.3 8.8 - 12.5 fL 11/09/2023 7:59 PM EST [facility] Neut Percent 62.8 % 11/09/2023 7:59 PM EST [facility] Comment:Neutrophils equals s egs plus bands Imm Gran% 0.2 % 11/09/2023 7:59 PM EST [facility] Comment:Automated count of m etamyelocytes, myelocytes and promyelocytes. Lymph Percent 24.2 % 11/09/2023 7:59 PM EST [facility] Rich Percent 9.0 % 11/09/2023 7:59 PM EST [facility] Eos Percent 3.3 % 11/09/2023 7:59 PM EST [facility] Baso Percent 0.5 % 11/09/2023 7:59 PM EST [facility] Neut # 5.7 1.6 - 6.1 x10(3)/mcL 11/09/2023 7:59 PM EST [facility] Comment:Neutrophils equals s egs plus bands IMMGRAN# 0.0 0.0 - 0.1 x10(3)/mcL 11/09/2023 7:59 PM EST [facility] Comment:Automated count of m etamyelocytes, myelocytes and promyelocytes. An absolute IG <0.1 is reported as 0.0. Lymph # 2.2 1.2 - 3.9 x10(3)/mcL 11/09/2023 7:59 PM EST [facility] Rich # 0.8 0.3 - 0.9 x10(3)/mcL 11/09/2023 7:59 PM EST [facility] Eos# 0.3 0.0 - 0.5 x10(3)/mcL 11/09/2023 7:59 PM EST [facility] Baso # 0.1 0.0 - 0.1 x10(3)/mcL 11/09/2023 7:59 PM EST [facility] Blood VENOUS BLOOD / Unknown Venipuncture / Unknown 11/09/2023 3:04 PM EST 11/09/2023 3:04 PM EST us Abel Pretty MD HEMATOLOGY ORDERABLES F inal Result [facility] [address] [facility], [place] [address] * (ABNORMAL) COMPREHENSIVE METABOLIC PANEL (11/09/2023 3:04 PM EST) Sodium 140 136 - 145 mmol/L 11/09/2023 8:13 PM EST [facility] Potassium 3.9 3.5 - 5.0 mmol/L 11/09/2023 8:13 PM EST [facility] Chloride 105 98 - 107 mmol/L 11/09/2023 8:13 PM EST [facility] Total CO2 28 22 - 29 mmol/L 11/09/2023 8:13 PM EST [facility] Anion Gap 7 7 - 16 mmol/L 11/09/2023 8:13 PM EST [facility] Calcium 10.3 8.8 - 10.4 mg/dL 11/09/2023 8:13 PM EST [facility] Glucose Lvl 112(H) 70 - 99 mg/dL 11/09/2023 8:13 PM EST [facility] BUN 23 8 - 23 mg/dL 11/09/2023 8:13 PM EST [facility] Creatinine 0.94 0.51 - 1.30 mg/dL 11/09/2023 8:13 PM EST [facility] Albumin 4.1 3.2 - 4.6 gm/dL 11/09/2023 8:13 PM EST [facility] Total Protein 7.2 6.4 - 8.3 gm/dL 11/09/2023 8:13 PM EST [facility] Bili Total 0.2 0.2 - 1.3 mg/dL 11/09/2023 8:13 PM EST [facility] ALT 14 <=41 U/L 11/09/2023 8:13 PM EST [facility] AST 16 <=40 U/L 11/09/2023 8:13 PM EST [facility] Alk Phos 84 36 - 123 U/L 11/09/2023 8:13 PM EST [facility] eGFR (CKD-EPIcr 2020) 66 >=60 mL/min/1.7 3 m2 11/09/2023 8:13 PM EST [facility] Comment:Estimated GFR was ca lculated using the CKD-EPIcr (2020) equation refit without race. The equation is recommended by the National Kid[employer] - [place] [employer] of Neph[employer] Task Force. Blood VENOUS BLOOD / Unknown Venipuncture / Unknown 11/09/2023 3:04 PM EST 11/09/2023 3:04 PM EST us Abel Pretty MD CHEMISTRY ORDERABLES Fi nal Result PREFERRED [email or web address], [address], [place] [address] [facility] [address] [place] [address] documented in this encounter Visit Diagnoses Diagnosis Annual physical exam- Primary Routine general medical examination at a health care facility Chronic bronchitis, unspecified chronic bronchitis type (HCC) Nausea and vomiting, unspecified vomiting type Bilateral hip pain Pain in joint, pelvic region and thigh documented in this encounter Discontinued Medications Medication Sig Discontinue Reason Start Date End Da te lisinopriL (PRINIVIL;ZESTRIL) 20 mg Oral Tablet tabletIndications:Essenti al hypertension Take 1 Tablet by mouth daily. Alternate therapy 05/27/2023 07/19/2023 albuterol (PROVENTIL HFA;VENTOLIN HFA) 90 mcg/actuation Inhl HFA Aerosol InhalerIndications:Chroni c bronchitis, unspecified chronic bronchitis type (HCC) Inhale 2 Puffs into the lungs every 4 hours as needed for Wheezing. Reorder 07/19/2023 07/19/2023 ondansetron (ZOFRAN-ODT) 4 mg Oral Tablet, Rapid DissolveIndications:Nause a and vomiting, unspecified vomiting type Take 1 Tablet by mouth every 8 hours as needed for Nausea. Reorder 07/19/2023 07/19/2023 meloxicam (MOBIC) 15 mg Oral TabletIndications:Bilater al hip pain Take 1 Tablet by mouth daily. Reorder 07/19/2023 07/19/2023 documented as of this encounter Additional Health Concerns Assessment Noted Time A fall risk assessment has been complete d for the patient 07/27/2022 10:00 AM EST documented as of this encounter Care Teams Inspector Balance Bridge Relationship Specialty Start Date End Date Cristiane Shirley MD [address] [place] [address] PCP - General Family Medicine 08/20/18 12/29/23 Garett Holt MD Internal Medicine-Gastroenterology 12/22/12 Ruiz Stokes MD [address] [place] [address] Internal Medicine-Cardiovascular Disease 07/25/14 Yenny Schwab MD [address] [facility] [address] [place] [address] Internal Medicine-Rheumatology 12/11/16 documented as of this encounter
--- OUTSIDE RECORDS SUMMARY | 2024-07-22 15:58 | XMS_ITS | Encounter Summary ---
Author Organization [place] [address] Care Team Providers Care Canal Boat Operator Name Role Phone Garett Holt MD Unavailable [phone] Ruiz Stokes MD Unavailable [phone] Yenny Schwab MD Unavailable [phone] Cristiane Shirley MD Primary Care Provider [phone] Reason for Referral * Holter Monitor (Routine) - Closed Specialty Diagnoses / Procedures Referred By Contalissa t Referred To Contact Radiology Diagnoses Palpitations Encounter to establish care Shortness of breath Atypical angina (HCC) Procedures HOLTER MONITOR RECORDING AND ANALYSIS Kt Conti MD [address] [facility] [address] Phone: tel: fax: EDG HOLTER MONITOR [facility] [place] [address] Phone: tel: fax: Referral ID Status Reason Start Date Expiration Date Visits Re quested Visits Authorized [id number] Closed 08/26/2023 08/26/2025 1 1 Reason for Visit * Holter Monitor (Routine) - Closed Specialty Diagnoses / Procedures Referred By Ron bansal Referred To Contact Radiology Diagnoses Palpitations Encounter to establish care Shortness of breath Atypical angina (HCC) Procedures HOLTER MONITOR RECORDING AND ANALYSIS Kt Conti MD [address] [place] [address] [place] [address] Phone: tel: fax: EDG HOLTER MONITOR [address] [facility] [place] [address] Phone: tel: fax: Referral ID Status Reason Start Date Expiration Date Visits Re quested Visits Authorized [id number] Closed 08/26/2023 08/26/2025 1 1 Encounter Details Date Type Department Care Team (Latest Contact Info) Description 09/05/2023 11:54 AM EST - 09/05/2023 11:59 PM EST Hospital Encounter [facility] [address] [place] [address] Drive [address] [place] [address] Kt Conti MD [address] [place] [address] [address] [place] [address] Palpitations; Encounter to establish care; Shortness of [...] Date Recorded PHQ-2 Total Score 0 12/21/[address] [facility] [place] of Occupat ional Health - Occupational Stress [...] Tablet 2 02/10/2023 Blood Sugar Diagnostic [facility] StripIndications: Type 2 diabetes mellitus without complication, without long-term current use of insulin (HCC) 1 Strip by [facility].(Non-Drug; Combo Route) route 2 times daily. Per formulary. Dx: E11.9 100 Each 11 08/05/2022 Blood-Glucose Meter [facility] KitIndications:Ty pe 2 diabetes mellitus without complication, without long-term current use of insulin (HCC) Per formulary. Dx. E11.9 1 Kit 08/05/2022 Blood-Glucose Meter,Continuous (DEXCOM G7 PE TEACHER) [facility] MiscIndications:T ype 2 diabetes mellitus without complication, without long-term current use of insulin (HCC),Severe diabetic hypoglycemia (HCC) 1 Each by [facility].(Non-Drug; Combo Route) route as needed. 1 Each 06/27/2023 Blood-Glucose Sensor (DEXCOM G7 SENSOR) [facility] DeviceIndications :Type 2 diabetes mellitus without complication, without long-term current use of insulin (HCC),Severe diabetic hypoglycemia (HCC) 1 Each by [facility].(Non-Drug; Combo Route) route as [...] 03/31/2023 fluticasone propionate (FLONASE) 50 mcg/actuation Nasl [place], SuspensionIndicat ions:ETD (Eustachian tube dysfunction), right Use 1 spray(s) in each nostril once daily 16 g 10/17/2022 Lancets [facility] MiscIndications:T ype 2 diabetes mellitus without complication, without long-term current use of insulin (HCC) 1 Each by [facility].(Non-Drug; Combo Route) route 2 times daily. Per formulary. Dx: E11.9 100 Each 11 08/05/2022 loratadine (CLARITIN) 10 mg Oral TabletIndications :Seasonal allergic rhinitis due to pollen Take 1 tablet by mouth once daily 63 Tablet 12/24/2021 Nebulizer Accessories [facility] KitIndications:Ac [place] bronchitis, unspecified organism Nebulizer accessories 1 Kit [...] 07/19/2023 ONETOUCH DELICA PLUS LANCET 33 gauge [facility] USE TO CHECK GLUCOSE TWICE DAILY 11/08/2022 [...] 9:00 AM EST Appointment [facility] [address] [place], [place] [id number] Jomar Kim MD [address] [place] [address] documented as of this encounter Goals Goal Patient Goal Type Associated Problems Recent Progress Patient-Stated? Author Blood Pressure < 140/90 Blood Pressure 110/72(04/09 2:44 PM EDT) No Rachel Rogers RMA BMI (Calculated) < 30 General 50.9(2023 2:44 PM EDT) No Rachel Rogers RMA Eat better, exercise, reach an ideal body weight General No Ni Clinton, binder cutter Healing General On track(12/03 9:18 AM EDT) [...] neuropathy weekly. ?? Refer to PCP and/or Shrimp Trawler Captain, Vascular Specialist as indicated. ?? Monitor patient [...] Procedure Name Priority Date/Time Associated Diagnosis Comments HOLTER MONITOR RECORDING AND ANALYSIS Routine 09/05/2023 12:40 PM EST Palpitations Encounter to establish care Shortness of breath Atypical angina documented in this encounter Results * HOLTER MONITOR RECORDING AND ANALYSIS (09/05/2023 12:40 PM EST) Anatomical Region Laterality Modality Holter/Event Mon itoring 09/10/2023 5:17 AM EST Impressions 09/12/2023 3:22 PM EST ?[facility] ? Test Date: ?2023-09-10 Pat Name: ? ALYSSA CAMPOS ?Department: ?? DEPID ? Room: ? Gender: ? Female ? Contract Administrator: ?? : ?[id number] ? Requested By: KT Taveras Order Number: [id number] ?Juanita WU: ?? Onel Bailey MD ? Interpretive Statements Teachers' Aide Date: ??09/05/2023 Referring Provider: ??Dr. Kt Conti MD Patient was monitored for 24 hours. INDICATIONS: ?? palpitations CONCLUSION: Patient monitored for 18h 44min, analyzable time was 8h 27min starting on 09/05/2023 12:37 pm. Primary rhythm was Sinus Rhythm. Average heart rate was 60 bpm, Minimum heart rate was 45 bpm on Day :36:10 am, Max heart rate was 82 bpm on Day :16:17 am SVE(s): [place] was < 0.01 %, 2 total SVE(s) PVC(s): [place] was < 0.01 %, 2 total PVC(s), 1 disparate morphologies Electronically Signed On 09-12-2023 15:22:53 EST by Onel Bailey MD Narrative Procedure Note Onel Bailey MD - 09/12/2023 IMPRESSION [facility] Test Date: 2023-09-10 Pat Name: ALYSSA CAMPOS Department: DEPID Room: Gender: Female Contract Administrator: : [id number] Requested By: KT Taveras Order Number: [id number] Juanita MD: Onel Bailey MD Interpretive Statements Teachers' Aide Date: 09/05/2023 Referring Provider: Dr. tK Conti MD Patient was monitored for 24 hours. INDICATIONS: palpitations CONCLUSION: Patient monitored for 18h 44min, analyzable time was 8h 27min startingon 09/05/2023 12:37 pm. Primary rhythm was Sinus Rhythm. Average heart rate was 60 bpm, Minimumheart rate was 45 bpm on Day :36:10 am, Max heart rate was 82 bpm on Day :16:17 am SVE(s): [place] was < 0.01 %, 2 total SVE(s) PVC(s): [place] was < 0.01 %, 2 total PVC(s), 1 disparate morphologies Electronically Signed On 09-12-2023 15:22:53 EST by Onel Bailey MD us Kt Conti MD IMG HOLTER MONITOR ORDERABLES F inal Result documented in this encounter Visit Diagnoses [...] documented as of this encounter Care Teams Canal Boat Operator Relationship Specialty Start Date End Date Cristiane Shirley MD [address] [place] [address] PCP - General Family Medicine 08/20/18 12/29/23 Garett Holt MD Internal Medicine-Gastroenterology 12/22/12 Ruiz Stokes MD [address] [place] [id number] Internal Medicine-Cardiovascular Disease 07/25/14 Yenny Schwab MD [address] [facility] [address] [place] [address] Internal Medicine-Rheumatology 12/11/16 documented as of this encounter
--- OUTSIDE RECORDS SUMMARY | 2024-07-22 15:58 | XMS_ITS | Encounter Summary ---
Author Organization [place] [address] Care Team Providers Care Exterior Work Helper Name Role Phone Garett Holt MD Unavailable [phone] Ruiz Stokes MD Unavailable [phone] Yenny Schwab MD Unavailable [phone] Cristiane Shirley MD Primary Care Provider [phone] Reason for Referral * Holter Monitor (Routine) - Closed Specialty Diagnoses / Procedures Referred By Contalissa t Referred To Contact Radiology Diagnoses Palpitations Encounter to establish care Shortness of breath Atypical angina (HCC) Procedures HOLTER MONITOR RECORDING AND ANALYSIS Kt Conti MD [address] [place] [address] Phone: tel: fax: EDG HOLTER MONITOR [facility] [place] [address] Phone: tel: fax: Referral ID Status Reason Start Date Expiration Date Visits Re quested Visits Authorized [id number] Closed 08/26/2023 08/26/2025 1 1 Reason for Visit * Reason Comments New Patient Ref. by PCP for palp itations Palpitations Last episode= PM; Duration=1 hr; Pain Lower abdominal & le gs; pain scale=10; Durations= days; Hx=diabetes Chest Pain Location=[place] t to under left breast; last episode=wk of 08/17/23; pain scale=9; duration=1 -1.5 hr; Shortness of Breath Hx asthma Dizziness Edema * Consultation (Routine) - Pending Review Specialty Diagnoses / Procedures Referred By Contalissa t Referred To Contact Cardiology Diagnoses Palpitation Cristiane Shirley MD [address] [place] [address] Phone: tel: fax: [place] [address] Phone: tel: fax: Referral ID Status Reason Start Date Expiration Date V isits Requested Visits Authorized [id number] Pending Review 08/08/2023 08/07/2024 99 99 Encounter Details Date Type Department Care Team (Late st Contact Info) Description 08/26/2023 2:00 PM EST Office Visit [facility] [place] [address] Kt Conti MD [address] [place] [address] Atypical angina (Primary Dx); Palpitations; Encounter to establish care; Shortness of breath Social History Tobacco Use Types Packs/Day Years [...] Date Recorded PHQ-2 Total Score 0 12/21/2022 [employer] [place] [facility] [employer] - Occupational Stress [...] Sign Reading Time Taken Comments Blood Pressure 134/70 08/26/2023 2:01 PM EST Pulse 81 08/26/2023 2:01 PM EST Temperature - - Respiratory Rate - - Oxygen Saturation 96% 08/26/2023 2:01 PM EST Inhaled Oxygen Concentration - - Weight 114.5 kg (252 lb 6.4 oz) 08/26/2023 2:01 PM EST Height 162.6 cm (5' 4 ) 08/26/2023 2:01 PM EST Body Mass Index 43.32 08/26/2023 2:01 PM EST documented in this encounter Functional Status [...] documented in this encounter Progress Notes * Kt Conti MD - 08/26/2023 2:00 PM EST Subjective: Patient ID: Alyssa Campos is a 68 y.o. female. Chief Complaint Patient presents with New Patient Ref. by PCP for palpitations Palpitations Last episode= 08/25/23 PM; Duration=1 hr; Pain Lower abdominal & legs; pain scale=10; Durations= days; Hx=diabetes Chest Pain Location=[place] to under left breast; last episode=wk of 08/17/23; pain scale=9; duration=1 -1.5 hr; Shortness of Breath Hx asthma Dizziness Edema We have been asked by Dr. Shirley to provide initial consultation on Alyssa JUDGE Inhalers for asthma Sob and chest pain Nighttime heart racing when lying down 1.5 hours duration. After inhaler symptoms less sob. Sob with activity- walking Swelling in legs. Chest pain- in evening, squeezing sensation. After eating Not eating much. No exertional chest pain HAMIDA no mask says wasn't prescribed Htn juan jose I aldactone norvasc High chol AODM on jardiance and farxiga Fm hx mother Father ppm Their chronic cardiac conditions are: Problem List Cardiology Problems Atherosclerosis of aorta (HCC) Social History Tobacco Use Smoking Status Former Current packs/day: 0.00 Average packs/day: 1.5 packs/day for 13.0 years (19.5 ttl pk-yrs) Types: Cigarettes Start date: 09/08/1971 Quit date: 09/07/1984 Years since quittin.9 Passive exposure: Current Smokeless Tobacco Never Current Outpatient Medications Medication Sig Dispense Refill albuterol (PROVENTIL HFA;VENTOLIN HFA) 90 mcg/actuation Inhl HFA Aerosol Inhaler Inhale 2 Puffs into the lungs every 4 hours as needed for Wheezing. 1 Each 2 albuterol (PROVENTIL) 2.5 mg /3 mL [...] daily. 30 Tablet 2 [facility] Strip by [facility]Non-Drug; Combo Route) route 2 times daily. Per formulary. Dx: E11.9 100 Each 11 Blood-Glucose Meter [facility] Kit Per formulary. Dx. E11.9 1 Kit 0 Blood-Glucose Meter,Continuous (DEXCOM G7 CYLINDER VALVE REPAIRER) [facility] Misc 1 Each by [facility].(Non-Drug; Combo Route) route as needed. 1 Each 11 Blood-Glucose Sensor (DEXCOM G7 SENSOR) Misc Device 1 Each by [facility].(Non-Drug; Combo Route) route asneeded. 1 Each 11 CALCIUM ORAL Take 1 Tab by mouth daily. cholecalciferol, vitamin D3, (VITAMIN D3) 25 mcg (1,000 unit) Oral Tablet Take 1 Tab by mouth daily. 30 Tab 11 dapagliflozin propanediol (FARXIGA) 10 mg Oral Tablet Take 1 Tablet by mouth daily. 30 Tablet 2 docusate sodium (COLACE) 100 mg Oral Capsule Take 1 Capsule by mouth 2 times daily. 60 Capsule 2 empagliflozin (JARDIANCE) 10 mg Oral Tablet Take 1 Tablet by mouth daily. 21 Tablet 0 fluticasone propionate (FLONASE) 50 mcg/actuation Nasl [place], Suspension Use 1 spray(s) in each nostril once daily 16 g 0 fUROsemide (LASIX) 40 mg Oral Tablet One tab daily and may take an extra if needed. 60 Tablet 2 Lancets [facility] 1 Each by [facility].(Non-Drug; Combo Route) route 2 times daily. Per formulary. Dx: E11.9 100 Each 11 lisinopriL (PRINIVIL;ZESTRIL) 10 mg Oral Tablet loratadine (CLARITIN) 10 mg Oral Tablet Take 1 tablet by mouth once daily 63 Tablet 0 meloxicam (MOBIC) 15 mg Oral Tablet Take 1 Tablet by mouth daily. 30 Tablet 2 Nebulizer Accessories [facility] Kit Nebulizer accessories 1 Kit 0 olopatadine (PATANOL) 0.1 % Opht Drops Place 1 Drop into both eyes 2 times daily. Administer drops in both eyes. 5 mL 0 ondansetron (ZOFRAN-ODT) 4 mg Oral Tablet, Rapid Dissolve Take 1 Tablet by mouth every 8 hours as needed for Nausea. 15 Tablet 0 ONETOUCH DELICA PLUS LANCET 33 gauge [facility] USE TO CHECK GLUCOSE TWICE DAILY oxybutynin (DITROPAN-XL) 10 mg Oral Tablet Extended Rel 24 hr Take 1 Tablet by mouth daily. 90 Tablet 2 pantoprazole (PROTONIX) 40 mg Oral Tablet, Delayed Release (E.C.) Take 1 Tablet by mouth daily. 90 Tablet 0 spironolactone (ALDACTONE) 25 mg Oral Tablet Take 1 Tablet by mouth daily. 90 Tablet 0 tiZANidine (ZANAFLEX) 4 mg Oral Tablet Take 1 Tablet by mouth 3 times daily as needed. 30 Tablet 0 trospium (SANCTURA) 20 mg Oral Tablet Take 1 Tablet by mouth 2 times daily. 60 Tablet 5 No current facility-administered medications for this visit. Patients past medical, family and social histories were reviewed and updated. There were no changesexcept as noted. Review of Systems Constitutional: Negative for weight loss. Cardiovascular: Negative for chest pain, dyspnea on exertion, irregular heartbeat and leg swelling. All other systems reviewed and are negative. Objective: Patient Vitals for the past 24 hrs: Pulse BP 08/26/23 1401 81 134/70 Body mass index is 43.32 kg/m??. Physical Exam Constitutional: She appears healthy. HENT: Nose: No nasal discharge. Eyes: Conjunctivae are normal. Neck: No JVD present. Cardiovascular: Normal rate, regular rhythm, S1 normal, S2 normal and normal heart sounds. Exam reveals no S3. No murmur heard. Pulmonary/Chest: Breath sounds normal. She has no wheezes. She has no rales. Abdominal: She exhibits no distension. Musculoskeletal: General: No edema. Neurological: She is alert. Skin: Skin is warm. No pallor. Relevant Studies ECHO 2018 No results found for this visit on 08/26/23. Lab Review Lab Results Component Value Date WBC 9.6 07/27/2022 HGB 10.4 (L) 07/27/2022 PLT 252 07/27/2022 Lab Results Component Value Date NA 141 05/31/2023 K 4.2 05/31/2023 BUN 19 05/31/2023 CREATININE 0.87 05/31/2023 GLU 126 (H) 05/31/2023 ALT 16 05/31/2023 ALKPHOS 71 05/31/2023 Lab Results Component Value Date TSH 1.480 07/09/2016 Lab Results Component Value Date CHOLESTEROL 176 05/31/2023 HDL 46 05/31/2023 LDLCALC 107 (H) 05/31/2023 TRIG 130 05/31/2023 No results found for: INR , PROTIME Assessment and Plan: Alyssa was seen today for new patient, palpitations, pain, chest pain, shortness of breath, dizzinessand edema. Diagnoses and all orders for this visit: Palpitations - POCT EKG Encounter to establish care - POCT EKG 1. Dyspnea on exertion- unclear etiology. ? CHF, pulm htn, copd 2. Chest pain atypical for angina ?GI. No coronary calcium 6 22 3. HTN continue juan jose I 4 AODM on sglt2i 5. Palpitations- has risk factors for AF. 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 documented in this encounter Miscellaneous Notes * Patient Instructions - Aleena Juarez MA - 08/26/2023 2:00 PM EST You may receive a survey via phone, mail or e-mail, regarding your visit today. Your feedback is important to us. We ask that you please take a few minutes to fill out the survey. You were assisted today by Dr. Conti's CHAO's David. Thank You for choosing [facility]. We sincerely thank you for the opportunity to be a part of your care. Please contact your pharmacy if you need medication refills. Your pharmacy will send the request to us electronically. Please complete non-fasting labs prior to return. documented in this encounter Plan of Treatment Upcoming Encounters Date Type Department Care Team (Late st Contact Info) Description 07/29/2024 9:00 AM EST Appointment [facility] [address] [place], [place] [id number] Jomar Kim MD [address] [place], [place] [id number] documented as of this encounter Goals Goal Patient Goal Type Associated Problems Recent Progress Patient-Stated? 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 ?? Refer to PCP and/or Youth Services Librarian, Vascular Specialist as indicated. ?? Monitor [...] Name Priority Date/Time Associated Diagnosis Comments POCT EKG Routine 08/26/2023 2:27 PM EST Palpitations Encounter to establish care documented in this encounter Results * NT PROBNP (11/09/2023 3:04 PM EST) NT Pro-BNP 45 <=353 pg/mL 11/09/2023 8:13 PM EST Ajaline Blood VENOUS BLOOD / Unknown Venipuncture / Unknown 11/09/2023 3:04 PM EST 11/09/2023 3:04 PM EST Narrative Ajaline - 11/09/2023 8:13 PM EST An NT pro-BNP level less than 300 pg/mL in any patient, regardless of age, effectively rules out acute CHF with a 99% negative predictive value. Ingestion of min doses of biotin (>5 mg/day) taken within 8 hours of drawing blood sample can interfere with this immunoassay test. us Kt Conti MD CHEMISTRY ORDERABLES Final Resu lt [facility] [employer], [facility] [address] [facility], [place] [address] * XR CHEST PA AND LATERAL (09/15/2023 [...] CHEST X-RAY, ??09/15/2023 8:18 AM CLINICAL HISTORY: ??R00.8-Xkrumswuifdn-JOC-10-CM Z76.89-Persons encountering health services in other specified vwgjgzvoavysk-KNE-83-CM R06.02-Shortness of mfawnr-UNC-60-CM I20.89-Other forms of angina dmrdwsgt-JTT-14-CM COMPARISON: ??04/21/20. PROCEDURE COMMENTS: Frontal and lateral views of the chest. FINDINGS: Cardiovascular structures within normal limits. ??No pneumonia or effusion. ??No pneumothorax. Procedure Note Perla Schroeder MD - 09/15/2023 PA AND LATERAL CHEST X-RAY, 09/15/2023 8:18 AM CLINICAL HISTORY: R00.3-Beaabqpmrjnj-YKW-10-CM Z76.89-Persons encountering health services in other specified zmbbhtzqicvuo-WUY-85-CM R06.02-Shortness of vnsbpd-TIE-65-CM I20.89-Other forms of angina fdgkcklo-AOV-13-CM COMPARISON: 04/21/20. PROCEDURE COMMENTS: Frontal and lateral views of the chest. FINDINGS: Cardiovascular structures within normal limits. No pneumoniaor effusion. No pneumothorax. IMPRESSION: No acute finding. - Note: Radiology results need to be interpreted within a comprehensiveclinical context. If you have questions about the radiology report, please contactthe office of the ordering clinician. Kt Conti MD IMG DIAGNOSTIC IMAGING ORDERABL ES Final Result * HM HOLTER MONITOR RECORDING AND ANALYSIS (09/05/2023 12:40 PM EST) Anatomical Region Laterality Modality Holter/Event Mon itoring 09/10/2023 5:17 AM EST Impressions 09/12/2023 3:22 PM EST ?[facility] ? Test Date: ?2023-09-10 Pat Name: ? ALYSSA CAMPOS ?Department: ?? DEPID ? Room: ? Gender: ? Female ? Lollypop Machine Operator: ?? : ?1955 ? Requested By: KT Taveras Order Number: [id number] ?Juanita WU: ?? Onel Bailey MD ? Interpretive Statements Field Staff Date: ??09/05/2023 Referring Provider: ??Dr. Kt Conti [...] 82 bpm on Day :16:17 am SVE(s): [place] was < 0.01 %, 2 total SVE(s) PVC(s): [place] was < 0.01 %, 2 total PVC(s), 1 disparate morphologies Electronically Signed On 09-12-2023 15:22:53 EST by Onel Bailey MD Narrative Procedure Note Onel Bailey MD - 09/12/2023 IMPRESSION [facility] Test Date: 2023-09-10 Pat Name: ALYSSA CAMPOS Department: DEPID Room: Gender: Female Lollypop Machine Operator: : [id number] Requested By: KT Taveras Order Number: [id number] Juanita MD: Onel Bailey MD Interpretive Statements Field Staff Date: 09/05/2023 Referring Provider: Dr. Kt Conti MD Patient was monitored for 24 hours. INDICATIONS: palpitations CONCLUSION: Patient monitored for 18h 44min, analyzable time was 8h 27min startingon 09/05/2023 12:37 pm. Primary rhythm was Sinus Rhythm. Average heart rate was 60 bpm, Minimumheart rate was 45 bpm on Day :36:10 am, Max heart rate was 82 bpm on Day :16:17 am SVE(s): [place] was < 0.01 %, 2 total SVE(s) PVC(s): [place] was < 0.01 %, 2 total PVC(s), 1 disparate morphologies Electronically Signed On 09-12-2023 15:22:53 EST by Onel Bailey MD Kt Conti MD IMG HOLTER MONITOR ORDERABLES F inal Result * (ABNORMAL) POCT EKG (08/26/2023 2:27 PM EST) 08/26/2023 2:27 PM EST Kt Conti MD POINT OF CARE CARDIOLOGY Final Result [facility] OFFICE documented in this encounter Visit Diagnoses Diagnosis Atypical angina (HCC)- Primary Other and unspecified angina pectoris Palpitations Encounter to establish care Reserved for inherently not codable concepts WITHOUT codable children Shortness of breath Palpitations Encounter to establish care Reserved for inherently not codable concepts WITHOUT codable children Shortness of breath Atypical angina (HCC) Other and unspecified angina pectoris Palpitations Encounter to establish care Reserved for inherently not codable concepts WITHOUT codable children Shortness of breath Atypical angina (HCC) Other and unspecified angina pectoris documented in this encounter Orders Lab Orders Without Results Count Last Ordered D ate First Ordered Date CBC 1 08/26/2023 documented in this encounter Additional Health Concerns Infection Onset Date Last Indicated Resolved Time COVID-19 08/30/2023 08/30/2023 09/19/2023 10:1 2 PM EST Assessment Noted Time A fall risk assessment has been complete d for the patient 07/27/2022 10:00 AM EST documented as of this encounter Care Teams Exterior Work Helper Relationship Specialty Start Date End Date Cristiane Shirley MD [address] [place] [address] PCP - General Family Medicine 08/20/18 12/29/23 Garett Holt MD Internal Medicine-Gastroenterology 12/22/12 Ruiz Stokes MD [address] [place] [address] Internal Medicine-Cardiovascular Disease 07/25/14 Yenny Schwab MD [address] [id number] Internal Medicine-Rheumatology 12/11/16 documented as of this encounter
--- OUTSIDE RECORDS SUMMARY | 2024-07-22 15:58 | XMS_ITS | Encounter Summary ---
Author Organization [place] [address] Care Team Providers Care Mechanist Name Role Phone Garett Holt MD Unavailable [phone] Ruiz Stokes MD Unavailable [phone] Yenny Schwab MD Unavailable [phone] Cristiane Shirley MD Primary Care Provider [phone] Encounter Details Date Type Department Care Team (Latest Contact Info) Description 11/09/2023 2:59 PM EST - 11/09/2023 11:59 PM EST Hospital Encounter [facility] [address] [address] Nausea and vomiting, unspecified vomiting type; Type 2 diabetes mellitus without complication, without long-term current use of insulin (HCC); Encounter to establish care; Shortness of breath; [...] 90 Tablet 2 02/10/2023 Blood Sugar Diagnostic [facility] StripIndications: Type 2 diabetes mellitus without complication, without long-term current use of insulin (HCC) 1 Strip by [facility].(Non-Drug; Combo Route) route 2 times daily. Per formulary. Dx: E11.9 100 Each 11 08/05/2022 Blood-Glucose Meter [facility] KitIndications:Ty pe 2 diabetes mellitus without complication, without long-term current use of insulin (HCC) Per formulary. Dx. E11.9 1 Kit 08/05/2022 Blood-Glucose Meter,Continuous (DEXCOM G7 CERTIFIED EMERGENCY VEHICLE TECHNICIAN) [facility] MiscIndications:T ype 2 diabetes mellitus without complication, without long-term current use of insulin (HCC),Severe diabetic hypoglycemia (HCC) 1 Each by [facility].(Non-Drug; Combo Route) route as needed. 1 Each 11 06/27/2023 Blood-Glucose Sensor (DEXCOM G7 SENSOR) [facility] DeviceIndications :Type 2 diabetes mellitus without complication, without long-term current use of insulin (HCC),Severe diabetic hypoglycemia (HCC) 1 Each by [facility].(Non-Drug; Combo Route) route as needed. 1 Each [...] 10/28/2023 fluticasone propionate (FLONASE) 50 mcg/actuation Nasl [place], SuspensionIndicat ions:ETD (Eustachian tube dysfunction), right Use 1 spray(s) in each nostril once daily 16 g 10/17/2022 Lancets [facility] MiscIndications:T ype 2 diabetes mellitus without complication, without long-term current use of insulin (HCC) 1 Each by [facility].(Non-Drug; Combo Route) route 2 times daily. Per formulary. Dx: E11.9 100 Each 11 08/05/2022 loratadine (CLARITIN) 10 mg Oral TabletIndications :Seasonal allergic rhinitis due to pollen Take 1 tablet by mouth once daily 63 Tablet 12/24/2021 Nebulizer Accessories [facility] KitIndications:Ac kamila bronchitis, unspecified organism Nebulizer accessories [...] [place] [address] Jomar Kim MD [address] [place] [address] documented as of this encounter Goals Goal Patient Goal Type Associated Problems Recent Progress Patient-Stated? 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 ?? Refer to PCP and/or Bridge Maintenance Worker, Vascular Specialist as indicated. ?? Monitor [...] Procedure Name Priority Date/Time Associated Diagnosis Comments CBC WITH DIFF Routine 11/09/2023 3:04 PM EST Nausea and vomiting, unspecified vomiting type NT PROBNP Routine 11/09/2023 3:04 PM EST Encounter to establish care Shortness of breath Atypical angina HEMOGLOBIN A1C Routine 11/09/2023 3:04 PM EST Type 2 diabetes mellitus without complication, without long-term current use of insulin (HCC) COMPREHENSIVE METABOLIC PANEL Routine 11/09/2023 3:04 PM EST Nausea and vomiting, unspecified vomiting type documented in this encounter Results * NT PROBNP (11/09/2023 3:04 PM EST) NT Pro-BNP 45 <=353 pg/mL 11/09/2023 8:13 PM EST [facility] Blood VENOUS BLOOD / Unknown Venipuncture / Unknown 11/09/2023 3:04 PM EST 11/09/2023 3:04 PM EST Narrative [facility] - 11/09/2023 8:13 PM EST An NT pro-BNP level less than 300 pg/mL in any patient, regardless of age, effectively rules out acute CHF with a 99% negative predictive value. Ingestion of min doses of biotin (>5 mg/day) taken within 8 hours of drawing blood sample can interfere with this immunoassay test. us Alvaro Conti MD CHEMISTRY ORDERABLES Final Resu lt [facility] [address] [facility] , [place] [address] * HEMOGLOBIN A1C (11/09/2023 3:04 PM EST) Hgb A1C 5.6 4.2 - 5.6 % 11/09/2023 8:22 PM EST [facility] Est. Avg Glucose 114 mg/dL 11/09/2023 8:22 PM EST [facility] Blood VENOUS BLOOD / Unknown Venipuncture / Unknown 11/09/2023 3:04 PM EST 11/09/2023 3:04 PM EST Narrative [facility] - 11/09/2023 8:22 PM EST REFERENCE RANGE: Normal: 4.0-5.6% Pre-diabetes: 5.7-6.4% Provisional diagnosis of diabetes: >6.4% Hgb F>10% and anything which shortens red cell survival, such as hemolytic anemia, or unstable hemoglobin variants such as HbSS, HbSC, or HbCC, will lower the HbA1c value associated with a given level of glycemic control. ? us Cristiane Shirley MD CHEMISTRY ORDERABLES Final Res ult [facility] [address] [facility] , [place] [address] * (ABNORMAL) CBC WITH DIFF (11/09/2023 3:04 [...] 7:59 PM EST [facility] Platelet 248 155 - 369 x10(3)/mcL 11/09/2023 7:59 PM EST [facility] MPV 10.3 8.8 - 12.5 fL 11/09/2023 7:59 PM EST [facility] Neut Percent 62.8 % 11/09/2023 7:59 PM EST [facility] Comment:Neutrophils equals s egs plus bands Imm Gran% 0.2 % 11/09/2023 7:59 PM EST [facility] Comment:Automated count of m etamyelocytes, myelocytes and promyelocytes. Lymph Percent 24.2 % 11/09/2023 7:59 PM EST [facility] [place] Percent 9.0 % 11/09/2023 7:59 PM EST [facility] Eos Percent 3.3 % 11/09/2023 7:59 PM EST [facility] Baso Percent 0.5 % 11/09/2023 7:59 PM EST [facility] Neut # 5.7 1.6 - 6.1 x10(3)/mcL 11/09/2023 7:59 PM EST [facility] Comment:Neutrophils equals s egs plus bands IMMGRAN# 0.0 0.0 - 0.1 x10(3)/mcL 11/09/2023 7:59 PM EST [facility] Comment:Automated count of m etamyelocytes, myelocytes and promyelocytes. An absolute IG <0.1 is reported as 0.0. Lymph # 2.2 1.2 - 3.9 x10(3)/mcL 11/09/2023 7:59 PM EST [facility] [place] # 0.8 0.3 - 0.9 x10(3)/mcL 11/09/2023 7:59 PM EST [facility] Eos# 0.3 0.0 - 0.5 x10(3)/mcL 11/09/2023 7:59 PM EST [facility] Baso # 0.1 0.0 - 0.1 x10(3)/mcL 11/09/2023 7:59 PM EST [facility] Blood VENOUS BLOOD / Unknown Venipuncture / Unknown 11/09/2023 3:04 PM EST 11/09/2023 3:04 PM EST us Abel Pretty MD HEMATOLOGY ORDERABLES F inal Result [facility] [address] [facility] , [address] [place], [place] [id number] * (ABNORMAL) COMPREHENSIVE METABOLIC PANEL (11/09/2023 3:04 [...] 8:13 PM EST [facility] Alk Phos 84 36 - 123 U/L 11/09/2023 8:13 PM EST [facility] eGFR (CKD-EPIcr 2020) 66 >=60 mL/min/1.7 3 m2 11/09/2023 8:13 PM EST [facility] Comment:Estimated GFR was ca lculated using the CKD-EPIcr (2020) equation refit without race. The equation is recommended by the National Kidney Foundation - [place] [employer] of Nephrology Task Force. Blood VENOUS BLOOD / Unknown Venipuncture / Unknown 11/09/2023 3:04 PM EST 11/09/2023 3:04 PM EST us Abel Pretty MD CHEMISTRY ORDERABLES Fi nal Result [facility] [address] [facility] [address], [address] [place] [id number] [facility] [address] [place], [place] [id number] documented in this encounter Visit Diagnoses Diagnosis Nausea and vomiting, unspecified vomiting type Type 2 diabetes mellitus without complication, without long-term current use of insulin (HCC) Encounter to establish care Reserved for inherently not codable concepts WITHOUT codable children Shortness of breath Atypical angina (HCC) Other and unspecified angina pectoris documented in this encounter Orders Lab Orders Without Results Count Last Ordered D ate First Ordered Date CBC 1 11/09/2023 CBC WITH DIFF 1 11/09/2023 COMPREHENSIVE METABOLIC PANEL 1 11/09/2023 documented in this encounter Additional Health Concerns Assessment Noted Time A fall risk assessment has been complete d for the patient 11/08/2023 9:11 AM EST documented as of this encounter Care Teams Mechanist Relationship Specialty Start Date End Date Cristiane Shirley MD [address] [place] [address] PCP - General Family Medicine 08/20/18 12/29/23 Garett Holt MD Internal Medicine-Gastroenterology 12/22/12 Ruiz Stokes MD [address] [place] [address] Internal Medicine-Cardiovascular Disease 07/25/14 Yenny Schwab MD [address] [facility] Building [address] [place] [address] Internal Medicine-Rheumatology 12/11/16 documented as of this encounter
--- OUTSIDE RECORDS SUMMARY | 2024-07-22 15:58 | XMS_ITS | Encounter Summary ---
Author Organization [place] [address] Care Team Providers Care Non Destructive Testing Inspector Name Role Phone Garett Holt MD Unavailable [phone] Ruiz Stokes MD Unavailable [phone] Yenny Schwab MD Unavailable [phone] Cristiane Shirley MD Primary Care Provider Reason for Visit * Reason Comments Edema Legs draining Dizziness Headache Foot Injury Right Encounter Details Date Type Department Care Team (Late st Contact Info) Description 11/08/2023 8:45 AM EST Office Visit [facility] [address] [place] [address] Abel Pretty MD [address] [place] [address] Right foot pain (Primary Dx); Leg swelling; Type 2 diabetes mellitus without complication, without long-term current use of insulin (HCC) Social History Tobacco Use Types Packs/Day Years [...] Date Recorded PHQ-2 Total Score 0 12/21/2022 [facility] [place] of Occupat ional Health - Occupational Stress [...] Sign Reading Time Taken Comments Blood Pressure 126/72 11/08/2023 9:12 AM EST Pulse 86 11/08/2023 9:12 AM EST Temperature 36.1 ??C (97 ??F) 11/08/2023 9:12 AM EST Respiratory Rate - - Oxygen Saturation 95% 11/08/2023 9:12 AM EST Inhaled Oxygen Concentration - - Weight 113.9 kg (251 lb) 11/08/2023 9:12 AM EST Height 162.6 cm (5' 4 ) 11/08/2023 9:12 AM EST Body Mass Index 43.08 11/08/2023 9:12 AM EST documented in this encounter Functional [...] Refills Last Filled Start Date End Date dapagliflozin propanediol (FARXIGA) 10 mg Oral TabletIndications:T ype 2 diabetes mellitus without complication, without long-term current use of insulin (HCC) Take 1 Tablet by mouth daily. 30 Tablet 2 11/08/2023 documented in this encounter Progress Notes * Abel Pretty MD - 11/08/2023 8:45 AM EST Vitals: 11/08/23 0912 BP: 126/72 Pulse: 86 Temp: 97 ??F (36.1 ??C) TempSrc: Forehead SpO2: 95% Weight: 251 lb (113.9 kg) Height: 5' 4 (1.626 m) Body mass index is 43.08 kg/m??. SUBJECTIVE: Chief Complaint Patient presents with Edema Legs draining Dizziness Headache Foot Injury Right HPI: Patient comes into the office for dizziness, headaches, and edema in her legs. Her right leg has been seeping. Her son is with her today and states she doesn't take her Jardiance all the time because it is so expensive. She states that on Friday her walker fell on her Right foot and bruised it and is painful. Bilateral upper arm pain, no injury. Review of Systems Constitutional: Negative for fever. Eyes: Negative for visual disturbance. Respiratory: Negative for cough and shortness of breath. Cardiovascular: Positive for leg swelling. Negative for chest pain and palpitations. Gastrointestinal: Negative for abdominal pain, constipation and diarrhea. Genitourinary: Negative for difficulty urinating. Musculoskeletal: Positive for arthralgias. Negative for joint swelling. Skin: Negative for [...] soft. Musculoskeletal: General: Normal range of motion. Right lower leg: Edema present. Left lower leg: Edema present. Skin: General: Skin is warm. Findings: Bruising (right foot) present. No rash. Neurological: Mental Status: She is alert. Psychiatric: Mood and Affect: Mood normal. Thought Content: Thought content normal. Assessment Diagnoses and all orders for this visit: Right foot pain - XR FOOT RIGHT AP LATERAL AND OBLIQUE; Future Leg swelling Comments: Increase lasix to one tablet twice a day as needed Type 2 diabetes mellitus without complication, without long-term current use of insulin (HCC) (Chronic) - dapagliflozin propanediol (FARXIGA) 10 mg Oral Tablet; Take 1 Tablet by mouth daily. Dispense: 30Tablet; Refill: 2 documented in this encounter Plan of Treatment Upcoming Encounters Date Type Department Care Team (Late st Contact Info) Description 07/29/2024 9:00 AM EST Appointment [facility] [address] [place], [place] [id number] Jomar Kim MD [address] [place] [address] documented as of this encounter Goals Goal Patient Goal Type Associated Problems Recent Progress Patient-Stated? Author Blood Pressure < 140/90 Blood Pressure 110/72(04/09 2:44 PM EDT) No Rachel Rogers, RMA BMI (Calculated) < 30 General 50.9(2023 2:44 PM EDT) No Rachel Rgoers RMA Eat better, exercise, reach an ideal [...] neuropathy weekly. ?? Refer to PCP and/or Network Support Analyst, Vascular Specialist as indicated. ?? [...] Priority Date/Time Associated Diagnosis Comments SCANNED LABS 11/24/2023 1:33 PM EDT documented in this encounter Results * SCANNED LABS (11/24/2023 1:33 PM EDT) 11/24/2023 1:33 PM EDT us Unknown Provider HEMATOLOGY ORDERABLES Final Res ult * XR FOOT RIGHT AP LATERAL AND [...] 3:25 PM CLINICAL HISTORY: ??M79.671-Pain in right [id number] COMPARISON: ??None. PROCEDURE COMMENTS: XR FOOT RIGHT AP LATERAL AND OBLIQUE FINDINGS: There is no fracture or traumatic malalignment. Joint spaces overall well-maintained for age. No periostitis. Procedure Note Uzair Freeman MD - 11/09/2023 XR FOOT RIGHT AP LATERAL AND OBLIQUE, 11/09/2023 3:25 PM CLINICAL HISTORY: M79.671-Pain in right [id number] COMPARISON: None. PROCEDURE COMMENTS: XR FOOT RIGHT [...] this encounter Visit Diagnoses Diagnosis Right foot pain- Primary Pain in limb Leg swelling Swelling of limb Type 2 diabetes mellitus without complication, without long-term current use of insulin (HCC) Right foot pain Pain in limb documented in this encounter Additional Health Concerns Assessment Noted Time A fall risk assessment has been complete d for the patient 11/08/2023 9:11 AM EST documented as of this encounter Care Teams Non Destructive Testing Inspector Relationship Specialty Start Date End Date Cristiane Shirley MD [address] [place] [address] PCP - General Family Medicine 08/20/18 12/29/23 Garett Holt MD Internal Medicine-Gastroenterology 12/22/12 Ruiz Stokes MD [address] [place] [address] Internal Medicine-Cardiovascular Disease 07/25/14 Yenny Schwab MD [address] [address] Internal Medicine-Rheumatology 12/11/16 documented as of this encounter
--- OUTSIDE RECORDS SUMMARY | 2024-07-22 15:58 | XMS_ITS | Encounter Summary ---
Author Organization [place] [address] Care Team Providers Care Hospice Educator Name Role Phone Garett Holt MD Unavailable [phone] Ruiz Stokes MD Unavailable [phone] Yenny Schwab MD Unavailable [phone] Cristiane Shirley MD Primary Care Provider [phone] Reason for Referral * Home Health Care (Routine) - Pending Review Specialty Diagnoses / Procedures Referred By Ron t Referred To Contact Home Health Diagnoses Right hip pain Arthritis of right knee Abel Pretty MD [address] [place] [address] Phone: tel: fax: Referral ID Status Reason Start Date Expiration Date Visits Requested Visits Authorized [id number] Pending Review Continuity of Care 10/20/2023 10/19/2024 1 1 Reason for Visit * Reason Onset Date Comments Orders 10/20/2023 [facility] Encounter Details Date Type Department Care Team (Late st Contact Info) Description 10/20/2023 Telephone [facility] [address] [place] [address] Cristiane Shirley MD [address] [place] [address] Orders ([facility]) Social History Tobacco Use Types Packs/Day Years [...] Recorded PHQ-2 Total Score 0 12/21/2022 [facility] [place] of Occupat ional Health - Occupational Stress [...] 9:02 AM RINAT Lisa Patel MA * Is the person [...] encounter Miscellaneous Notes * Telephone Encounter - Andie Quintero MA - 10/20/2023 5:19 PM EST Patient made aware and voiced understanding * Telephone Encounter - Andie Quintero MA - 10/20/2023 5:17 PM EST Patient made aware and voiced understanding * Telephone Encounter - Abel Pretty MD - 10/20/2023 5:04 PM EST Order has been placed * Telephone Encounter - Roslyn Calabrese RMA - 10/20/2023 3:01 PM EST Please advise * Telephone Encounter - Antonio Oliva - 10/20/2023 2:48 PM EST Select the most appropriate reason for this telephone message: Order Request Who is requesting the Order(s): Other pt. daughter Clementina What Orders are being requested: [facility] Reason Orders are Needed (Diagnosis): pt. daughter states for right leg needs HH reissued/ new order for [facility] Is a verbal order being requested: No If non-[facility], where should the order be faxed (include fax number): n/a Is this for in-patient or home health: Home Health (Frequency: n/a ) Additional Notes: [facility] phone number: [phone] pt. daughter states that [facility] advised that new order would be needing from Dr. Pretty to continue HH. please advise documented in this encounter Plan of Treatment Upcoming Encounters Date Type Department Care Team (Late Contact Info) Description 07/29/2024 9:00 AM EST Appointment [facility] [address] [place] [address] Jomar Kim MD [address] [place] [address] Scheduled Referrals Name Type Priority Associated Diagnoses Orde r Schedule AMB REFERRAL TO HOME HEALTH Outpatient Referral Routine Right hip pain Arthritis of right knee Ordered: 10/20/2023 documented as of this encounter Goals Goal [...] neuropathy weekly. ?? Refer to PCP and/or Piped Pocket Machine Operator, Vascular Specialist as indicated. ?? [...] as of this encounter Visit Diagnoses Diagnosis Right hip pain- Primary Pain in joint, pelvic region and thigh Arthritis of right knee Unspecified arthropathy, lower leg documented in this encounter Additional Health Concerns Assessment Noted Time A fall risk assessment has been complete d for the patient 07/27/2022 10:00 AM EST documented as of this encounter Care Teams Hospice Educator Relationship Specialty Start Date End Date Cristiane Shirley MD [address] [place] [address] PCP - General Family Medicine 08/20/18 12/29/23 Garett Holt MD Internal Medicine-Gastroenterology 12/22/12 Ruiz Stokes MD [address] [place], [place] [id number] Internal Medicine-Cardiovascular Disease 07/25/14 Yenny Schwab MD [address] [facility] [address] [place] [address] Internal Medicine-Rheumatology 12/11/16 documented as of this encounter
--- OUTSIDE RECORDS SUMMARY | 2024-07-22 15:58 | XMS_ITS | Encounter Summary ---
Author Organization [place] [address] Care Team Providers Care Belt Maker Name Role Phone Garett Holt MD Unavailable [phone] Ruiz Stokes MD Unavailable [phone] Yenny Schwab MD Unavailable [phone] Cristiane Shirley MD Primary Care Provider [phone] Reason for Visit * Reason Onset Date Comments Medication Refill 08/07/2023 Multiple meds Encounter Details Date Type Department Care Team (Late st Contact Info) Description 08/07/2023 Refill [facility] [address] [place] [address] Cristiane Shirley MD [address] [place] [address] Medication Refill (Multiple meds) Social History Tobacco Use Types Packs/Day Years [...] [facility]at ional [facility] [...] Tablet by mouth daily. 90 Tablet 08/07/2023 11/24/2023 pantoprazole (PROTONIX) 40 mg Oral Tablet, Delayed Release (E.C.) Take 1 Tablet by mouth daily. 90 Tablet 08/07/2023 12/15/2023 JARDIANCE 10 mg Oral Tablet Take 1 Tablet by mouth daily. 90 Tablet 08/07/2023 08/13/2023 documented in this encounter Miscellaneous Notes * Telephone Encounter - Annemarie Valles Tereza - 08/07/2023 4:31 PM EST Select the most appropriate reason for this telephone message: Medication Refill Who is requesting the refill: Other Fide with [facility] Medication(s)Name/Dosage/Frequency: Disp Refills Start End JARDIANCE 10 mg Oral Tablet pantoprazole (PROTONIX) 40 mg Oral Tablet, Delayed Release (E.C.) Disp Refills Start End spironolactone (ALDACTONE) 25 mg Oral Tablet Did patient contact the pharmacy first: Yes never heard back How many days left on hand: 0 Future appt date w/ prescribing provider: aldo [facility] & Location: [facility] Additional Notes: pt was on folic acid and would like a prescription for that, if pcp thinks pt needs this. Please advise. documented in this encounter Plan of Treatment Upcoming Encounters Date Type Department Care Team (Late st Contact Info) Description 07/29/2024 9:00 AM EST Appointment [facility] [address] [place], [place] [id number] Jomar Kim MD [address] [place] [address] documented as of this encounter Goals Goal Patient Goal Type Associated Problems Recent Progress Patient-Stated? Author Blood Pressure < 140/90 Blood Pressure 110/72(04/09 2:44 PM EDT) No Rachel Rogers RMA BMI (Calculated) < 30 General 50.9(2023 2:44 PM EDT) No Rachel Rogers RMA Eat better, exercise, reach an ideal body weight General No Ni [place], bottled beverage inspector Healing General On track(12/03 9:18 AM EDT) [...] neuropathy weekly. ?? Refer to PCP and/or Lobster Fisherman, Vascular Specialist as indicated. ?? Monitor patient [...] Discontinue Reason Start Date End Da te JARDIANCE 10 mg Oral Tablet Reorder 06/25/202307/11 pantoprazole (PROTONIX) 40 mg Oral Tablet, Delayed Release (E.C.) Reorder 06/25/2023 1 10/07/2022 spironolactone (ALDACTONE) 25 mg Oral Tablet Reorder 06/25/2023 08/07/2023 documented as of this encounter Additional Health Concerns Assessment Noted Time A fall risk assessment has been complete d for the patient 07/27/2022 10:00 AM EST documented as of this encounter Care Teams Belt Maker Relationship Specialty Start Date End Date Cristiane Shirley MD [address] [place] [address] PCP - General Family Medicine 08/20/18 12/29/23 Garett Holt MD Internal Medicine-Gastroenterology 12/22/12 Ruiz Stokes MD [address] [place] [address] Internal Medicine-Cardiovascular Disease 07/25/14 Yenny Schwab MD [address] [id number] Internal Medicine-Rheumatology 12/11/16 documented as of this encounter
--- OUTSIDE RECORDS SUMMARY | 2024-07-22 15:58 | XMS_ITS | Encounter Summary ---
Author Organization [place] [address] Care Team Providers Care Slot Editor Name Role Phone Garett Holt MD Unavailable [phone] Ruiz Stokes MD Unavailable [phone] Yenny Schwab MD Unavailable [phone] Cristiane Shirley MD Primary Care Provider [phone] Reason for Visit * Reason Onset Date Comments Central Patient Navigator Outreach 11/07/2023 AWV questionnaire Encounter Details Date Type Department Care Team (Late st Contact Info) Description 11/07/2023 Patient Outreach SEP [facility] [address] [place] [address] Cristiane Shirley MD [address] [place] [address] Central Patient Navigator Outreach (AWV questionnaire/) Social History Tobacco Use Types Packs/Day Years [...] Date Recorded PHQ-2 Total Score 0 12/21/2022 [facility]at ional [facility] - [...] documented in this encounter Progress Notes * Sherice Lopez - 11/07/2023 8:36 AM EST Patient Outreach: Pre-Visit Questionnaires Attempt Count: 1st Care Gaps Addressed optimization consultant: Medicare Questionnaire Outcome: Ease My Sellt Message Sent and Patient not available LM with spouse for pt to call us back . documented in this encounter Plan of Treatment Upcoming Encounters Date Type Department Care Team (Late st Contact Info) Description 07/29/2024 9:00 AM EST Appointment [facility] [address] [place] [address] Jomar Kim MD [address] [place] [address] documented as of this encounter Goals Goal Patient Goal Type Associated Problems Recent Progress Patient-Stated? Author Blood Pressure < 140/90 Blood Pressure 110/72(04/09 2:44 PM EDT) No Rachel Rogers RMA BMI (Calculated) < 30 General 50.9(2023 2:44 PM EDT) No Rachel Rogers, MULU Eat better, exercise, reach an ideal body weight General No Ni Clinton, pipe recovery specialist Healing General On track(12/03 9:18 AM EDT) [...] neuropathy weekly. ?? Refer to PCP and/or Luster Applicator, Vascular Specialist as indicated. ?? Monitor patient [...] documented as of this encounter Care Teams Slot Editor Relationship Specialty Start Date End Date Cristiane Shirley MD [address] [place] [address] PCP - General Family Medicine 08/20/18 12/29/23 Garett Holt MD Internal Medicine-Gastroenterology 12/22/12 Ruiz Stokes MD [address] [id number] Internal Medicine-Cardiovascular Disease 07/25/14 Yenny Schwab MD [address] [place] [address] Internal Medicine-Rheumatology 12/11/16 documented as of this encounter
--- OUTSIDE RECORDS SUMMARY | 2024-07-22 15:58 | XMS_ITS | Encounter Summary ---
Author Organization [place] [address] Care Team Providers Care Conservation Educator Name Role Phone Garett Holt MD Unavailable [phone] Ruiz Stokes MD Unavailable [phone] Yenny Schwab MD Unavailable [phone] Cristiane Shirley MD Primary Care Provider [phone] Reason for Referral * Home Health Care (Routine) - Closed Specialty Diagnoses / Procedures Referred By Contac t Referred To Contact Home Health Diagnoses Arthritis of right knee Abel Pretty MD [address] [place] [address] Phone: tel: fax: Referral ID Status Reason Start Date Expiration Date V isits Requested Visits Authorized [id number] Closed Continuity of Care 07/15/2023 07/14/2024 1 1 Comments [facility] Physician Certificate of Medical Necessity for Home Care Services Face to Face Encounter Home Health: Need for Home Health Services I certify that based on my findings: Home health services are medically necessary for this patient. This patient is homebound based on the following information:decreased strength and decreased endurance. My clinical findings support the need for the above services because:strength and endurance training and home safety assessment. Recommended Nursing Services: Skilled Assessment Therapies to Evaluate and Treat: Physical Therapy and Occupational Therapy Agency Choice/Phone Number: Encounter Date and Reason for Encounter I certify that I, or a qualified hospitalist practitioner working with me, had a face to face encounter with this patient on the date indicated below due to the medical condition also listed below, which related to the primary reason the patient requires home health services. Encounter Date: 07/15/2023 Need for Home Health Services I certify that based on my findings: A. Home health services are medically necessary for this patient due to the following medical conditions: Patient Active Problem List: Osteoarthrosis, unspecified whether generalized or localized, unspecified site Ventral hernia HAMIDA (obstructive sleep apnea) History of endometrial cancer Temporal arteritis (HCC) Type 2 diabetes mellitus without complication (HCC) Obesity, Class III, BMI 40-49.9 (morbid obesity) (HCC) Atherosclerosis of aorta (HCC) PMR (polymyalgia rheumatica) (HCC) Incisional hernia, incarcerated Periumbilical abdominal pain Epigastric pain I certify that this patient is under my care, or has been referred to another physician having professional knowledge of the patient's condition. Services ordered above are needed to treat condition for which patient was hospitalized and/or seen in the office. The composed above information is based on my clinical judgment relating to this patient's medical condition. 07/15/2023 The information requested on this form is mandated by the Affordable Care Act, effective September. Home Care services cannot be provided to the patient without completion of this document. The Plan of Care will be forwarded to the patient's primary physician for approval after services have commenced. A hospitalist or covering physician may certify home care even if they will not be caring for the patient after discharge. Reason for Visit * Reason Onset Date Comments Orders 07/14/2023 Encounter Details Date Type Department Care Team ([facility] st Contact Info) Description 07/14/2023 Telephone [facility]P [facility] [address] [place] [address] Anahi Redd MA 19 [facility] [address] [place] [address] Orders Social History Tobacco Use Types Packs/Day Years [...] Date Recorded PHQ-2 Total Score 0 12/21/2022 [facility] of Occupat ional Health - Occupational Stress [...] Telephone Encounter - Abel Pretty MD - 07/15/2023 7:39 AM EST Order placed * Telephone Encounter - Anaih Redd MA - 07/14/2023 10:11 AM EST Pt was discharged a couple of weeks ago and they were unable to get out to her.. they have now connected with her and needs the dr to write orders for PT and OT documented in this encounter Plan of Treatment Upcoming Encounters Date Type Department Care Team (Late st Contact Info) Description 07/29/2024 9:00 AM EST Appointment [facility] [place] [address] [place] [address] Jomar Kim MD [address] [place], [place] [id number] Scheduled Referrals Name Type Priority Associated Diagnoses Orde r Schedule AMB REFERRAL TO HOME HEALTH Outpatient Referral Routine Arthritis of right knee Ordered: 07/15/2023 documented as of this encounter Goals Goal [...] neuropathy weekly. ?? Refer to PCP and/or Automobile Assembly Supervisor, Vascular Specialist as indicated. ?? Monitor patient compliance with wound care, diabetes management and proper offloading. Patients abdominal discomfort will improve or resolve by next follow up call from RN CC. General Not on track(03/09 11:41 AM EDT) No Chance, Joselyn E, RN Stay Tobacco Free Lifestyle On track(02/07 10:23 AM EDT) Wendy Moon LPN HEMOGLOBIN A1C < 7.0 Result Component 5.6( 024 3:04 PM EST) Rachel Regan, RMA documented as of this encounter Visit Diagnoses Diagnosis Arthritis of right knee- Primary Unspecified arthropathy, lower leg documented in this encounter Additional Health Concerns Assessment Noted Time A fall risk assessment has been complete d for the patient 07/27/2022 10:00 AM EST documented as of this encounter Care Teams Conservation Educator Relationship Specialty Start Date End Date Cristiane Shirley MD [address] [place] [address] PCP - General Family Medicine 08/20/18 12/29/23 Garett Holt MD Internal Medicine-Gastroenterology 12/22/12 Ruiz Stokes MD [address] [place] [address] Internal Medicine-Cardiovascular Disease 07/25/14 Yenny Schwab MD [address] [address] Internal Medicine-Rheumatology 12/11/16 documented as of this encounter
--- OUTSIDE RECORDS SUMMARY | 2024-07-22 15:58 | XMS_ITS | Encounter Summary ---
Author [place] [address] Care Team Providers Care Talent Acquisition Relationship Manager Name Role Phone Garett Holt MD Unavailable [phone] Ruiz Stokes MD Unavailable [phone] Yenny Schwab MD Unavailable [phone] Cristiane Shirley MD Primary Care Provider [phone] Reason for Visit * Reason Onset Date Comments Home Health 11/03/2023 Referral for ski lled nursing Encounter Details Date Type Department Care Team (Late st Contact Info) Description 11/03/2023 Telephone [facility] [address] [place] [address] Cristiane Shirley MD [address] [place], [place] [id number] Home Health (Referral for fdc /) Social History Tobacco Use Types Packs/Day Years [...] Date Recorded PHQ-2 Total Score 0 12/21/2022 [facility] of Occupat ional Health - Occupational Stress [...] Telephone Encounter - Fide Moffett RMA - 11/03/2023 4:58 PM EST Referral printed and faxed. * Telephone Encounter - Byron Christina - 11/03/2023 12:49 PM EST Select the most appropriate reason for this telephone message: Other Who is calling (name & relationship to patient if not the patient): nurse amilcar What is needed OR why are they calling: fdc calling - she is at the pt's home and they are waiting for referral - states they need it faxed to When is this needed by: yodit Where does this information need to go: [facility] fax [phone] Additional information: na Looks like there is a referral in our system for home health but it didn't go to [facility] documented in this encounter Plan of Treatment Upcoming Encounters Date Type Department Care Team (Late st Contact Info) Description 07/29/2024 9:00 AM EST Appointment [facility] [address] [place] [id number] Jomar Kim MD [address] [place] [address] documented as of this encounter Goals Goal Patient Goal Type Associated Problems Recent Progress Patient-Stated? Author Blood Pressure < 140/90 Blood Pressure 110/72(04/09 2:44 PM EDT) No Rachel Rogers, RMA BMI (Calculated) < 30 General 50.9(2023 2:44 PM EDT) No Rachel Rogers, RMA Eat better, exercise, reach an ideal body weight General No Ni Clinton, medical billing coder Healing General On track(12/03 9:18 AM EDT) [...] neuropathy weekly. ?? Refer to PCP and/or Area Mechanic, Vascular Specialist as indicated. ?? Monitor patient [...] 5.6( 024 3:04 PM EST) Rachel Regan, RMLeigh documented as of this encounter Visit Diagnoses Not on filedocumented in this encounter Additional Health Concerns Assessment Noted Time A fall risk assessment has been complete d for the patient 07/27/2022 10:00 AM EST documented as of this encounter Care Teams Talent Acquisition Relationship Manager Relationship Specialty Start Date End Date Cristiane Shirley MD [address] [place] [address] PCP - General Family Medicine 08/20/18 12/29/23 Garett Holt MD Internal Medicine-Gastroenterology 12/22/12 Ruiz Stokes MD [address] [place] [address] Internal Medicine-Cardiovascular Disease 07/25/14 Yenny Schwab MD [address] [address] Internal Medicine-Rheumatology 12/11/16 documented as of this encounter
--- OUTSIDE RECORDS SUMMARY | 2024-07-22 15:58 | XMS_ITS | Encounter Summary ---
Author Organization [place] [address] Care Team Providers Care Farm Agent Name Role Phone Garett Holt MD Unavailable [phone] Ruiz Stokes MD Unavailable [phone] Yenny Schwab MD Unavailable [phone] Cristiane Shirley MD Primary Care Provider Encounter Details Date Type Department Care Team (Late st Contact Info) Description 08/15/2023 3:01 AM EST Anesthesia Event [facility] [address] [facility] [place] [address] Imelda Saha, COREMAKER HELPER [address] [place] [id number] Anesthesia Record Procedure Summary Procedure Name Responsible Anesthesiologist Anesthesia Start Time Anesthesia Stop Time ENDO COLONOSCOPY Events No events on file. Meds * Agents No agents on file. * Blood No blood administrations on file. Lines, Drains, and Airways No LDAs on file. documented in this encounter Social History Tobacco Use Types Packs/Day Years [...] Date Recorded PHQ-2 Total Score 0 12/21/2022 [facility] - Occupational Stress Questionnaire Answer [...] Lisa Mccartney MA documented in this encounter OR Notes * Anesthesia Preprocedure Evaluation - Imelda Arceo APRN - 08/11/2023 11:20 AM EST Pre-Anesthesia Evaluation Note Patient Name: Alyssa Jamil Sex: female Patient : 1955 Age: 68 y.o. Patient Date: August 11, 2023 Procedure: COLONOSCOPY Anesthesia Evaluation Previous anesthesia. 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 Normal right ventricular size and function. No significant valve disease Opioids There is no height or weight on file to calculate BMI. Anesthesia Plan Anesthesia Plan: MAC Chart Reviewed documented in this encounter Plan of Treatment Upcoming Encounters Date Type Department Care Team (Late st Contact Info) Description 07/29/2024 9:00 AM EST Appointment [facility] [address] [place] [id number] Jomar Kim MD [address] [place] [address] documented as of this encounter Goals Goal Patient Goal Type Associated Problems Recent Progress Patient-Stated? Author Blood Pressure < 140/90 Blood Pressure 110/72(04/09 2:44 PM EDT) No Rachel Rogers, RMA BMI (Calculated) < 30 General 50.9(2023 2:44 PM EDT) No Rachel Rogers, RMA Eat better, exercise, reach an ideal body weight General No Ni Clinton, primer and powder canning leader Healing General On track(12/03 9:18 AM EDT) [...] neuropathy weekly. ?? Refer to PCP and/or Correctional Manager, Vascular Specialist as indicated. ?? Monitor [...] documented as of this encounter Care Teams Farm Agent Relationship Specialty Start Date End Date Cristiane Shirley MD [address] [place] [address] PCP - General Family Medicine 08/20/18 12/29/23 Garett Holt MD Internal Medicine-Gastroenterology 12/22/12 Ruiz Stokes MD [address] [place] [address] Internal Medicine-Cardiovascular Disease 07/25/14 Yenny Schwab MD [address] [address] Internal Medicine-Rheumatology 12/11/16 documented as of this encounter
--- OUTSIDE RECORDS SUMMARY | 2024-07-22 15:58 | XMS_ITS | Encounter Summary ---
Author Organization [place] [address] Care Team Providers Care Clinical Sales Consultant Name Role Phone Garett Holt MD Unavailable [phone] Ruiz Stokes MD Unavailable [phone] Yenny Schwab MD Unavailable [phone] Cristiane Pop MD Primary Care Provider [phone] Reason for Referral * Consultation (Routine) - Pending Review Specialty Diagnoses / Procedures Referred By Contalissa t Referred To Contact Cardiology Diagnoses Palpitation Cristiane Pop MD [address] [place] [address] Phone: tel: fax: [facility] [address] [address] Phone: tel: fax: Referral ID Status Reason Start Date Expiration Date V isits Requested Visits Authorized [id number] Pending Review 08/08/2023 08/07/2024 99 99 Reason for Visit * Reason Onset Date Comments Home Health 08/07/2023 Cardiac referral Encounter Details Date Type Department Care Team (Late st Contact Info) Description 08/07/2023 Telephone [facility] [address] [place] [address] Cristiane Pop MD [address] [facility] [place] [address] Home Health (Cardiac referral) Social History Tobacco Use Types Packs/Day Years [...] Date Recorded PHQ-2 Total Score 0 12/21/2022 [facility] Occupat ional [facility] - Occupational Stress Questionnaire Answer Date Recorded [...] encounter Miscellaneous Notes * Addendum Note - Cristiane Pop MD - 08/08/2023 5:13 PM ESTAddended by: CRISTIANE POP on: 08/08/2023 05:13 PM Modules accepted: Orders * Telephone Encounter - Cristiane Pop MD - 08/08/2023 5:13 PM EST done * Telephone Encounter - Annemarie Valles/30/2023 4:37 PM EST Select the most appropriate reason for this telephone message: Other Who is calling (name & relationship to patient if not the patient): Fide from [facility] What is needed OR why are they calling: pt states she is having intermittent heart racing. Pt states this has been going on for about a month. Pt states that she did have a cardiac work up when in the hospital about a month ago and nothing was mentioned. Fide is wanting to know if pcp would want to refer her to see a brand representative. When is this needed by: yodit Where does this information need to go: Utter Additional information: if pcp wants any labs done on pt, Fide can do them. Please advise. documented in this encounter Plan of Treatment Upcoming Encounters Date Type Department Care Team (Late st Contact Info) Description 07/29/2024 9:00 AM EST Appointment [facility] [address] [place], [place] [id number] Jomar Kim MD [address] [place] [address] Scheduled Referrals Name Type Priority Associated Diagnoses Order Schedule AMB REFERRAL TO CARDIOLOGY Outpatient Referral Routine Palpitation Ordered: 08/08/2023 documented as of this encounter Goals Goal Patient Goal Type Associated Problems Recent Progress Patient-Stated? Author Blood Pressure < 140/90 Blood Pressure 110/72(04/09 2:44 PM EDT) No Rachel Rogers, CAROLA BMI (Calculated) < 30 General 50.9(2023 2:44 PM EDT) No Rachel Rogers RMA Eat better, exercise, reach an ideal body weight General No Ni Clinton, digital retoucher Healing General On track(12/03 9:18 AM EDT) [...] neuropathy weekly. ?? Refer to PCP and/or Power Transmission Engineer, Vascular Specialist as indicated. ?? Monitor [...] as of this encounter Visit Diagnoses Diagnosis Palpitation- Primary Palpitations documented in this encounter Additional Health Concerns Assessment Noted Time A fall risk assessment has been complete d for the patient 07/27/2022 10:00 AM EST documented as of this encounter Care Teams Clinical Sales Consultant Relationship Specialty Start Date End Date Cristiane Pop MD [address] [place] [address] PCP - General Family Medicine 08/20/18 12/29/23 Garett Holt MD Internal Medicine-Gastroenterology 12/22/12 Ruiz Stokes MD [address] [id number] Internal Medicine-Cardiovascular Disease 07/25/14 Yenny Schwab MD [address]51 [facility] [address] [phone] Internal Medicine-Rheumatology 12/11/16 documented as of this encounter
--- OUTSIDE RECORDS SUMMARY | 2024-07-22 15:58 | XMS_ITS | Encounter Summary ---
Author Organization [place] [address] Care Team Providers Care Muffler Tender Name Role Phone Garett Holt MD Unavailable [phone] Ruiz Stokes MD Unavailable [phone] Yenny Schwab MD Unavailable [phone] Cristiane Shirley MD Primary Care Provider [phone] Reason for Visit * Reason Comments Headache ear pain, loss of ap petite, cold chills, hot flashes, congestion. X 4 days Daughter who is here with her today has covid, her also has covid. Encounter Details Date Type Department Care Team (Late st Contact Info) Description 08/30/2023 3:45 PM EST Office Visit [facility] [address] [place] [address] Jean Claude Lock APRN Close exposure to COVID-19 virus (Primary Dx); COVID-19 Social History Tobacco Use Types Packs/Day Years [...] Date Recorded PHQ-2 Total Score 0 12/21/2022 [facility] - Occupational [...] Sign Reading Time Taken Comments Blood Pressure - - Pulse 72 08/30/2023 4:02 PM EST Temperature 36.9 ??C (98.4 ??F) 08/30/2023 4:02 PM ES T Respiratory Rate 18 08/30/2023 4:02 PM EST Oxygen Saturation 94% 08/30/2023 4:02 PM EST Inhaled Oxygen Concentration - - Weight 114.3 kg (252 lb) 08/30/2023 4:02 PM EST Height 162.6 cm (5' 4 ) 08/30/2023 4:02 PM EST Body Mass Index 43.26 08/30/2023 4:02 PM EST documented in this encounter Functional [...] Refills Last Filled Start Date End Date molnupiravir 200 mg Oral capsuleIndications :COVID-19 Take 4 Capsules by mouth every 12 hours for 5 days. 40 Capsule 08/30/2023 3 documented in this encounter Progress Notes * Jean Claude Lock APRN - 08/30/2023 3:45 PM EST AUTHOR Jean Claude Lock APRN SPECIALTY Acute Care Nurse Practitioner (AGACNP) Family Medicine Nurse Practitioner (MAIL PROCESSING EQUIPMENT MECHANIC) SERVICE Urgent Care [facility] Subjective Chief Complaint Patient presents with Headache ear pain, loss of appetite, cold chills, hot flashes, congestion. X 4 days Daughter who is here with her today has covid, her also has covid. Social Social History Socioeconomic History Marital status: Number of children: 2 Occupational History Occupation: disabled Tobacco Use Smoking status: Former Current packs/day: 0.00 Average packs/day: 1.5 packs/day for 13.0 years (19.5 ttl pk-yrs) Types: Cigarettes Start date: 09/08/1971 Quit date: 09/07/1984 Years since quittin.0 Passive exposure: Current Smokeless tobacco: Never Vaping [...] min Stress: No Stress Concern Present (02/07/2021) [facility] - Occupational Stress Questionnaire [...] 05/31/2023 Tdap 01/06/2013, 05/31/2023 Zoster Recombinant 12/01/2021 Patient Care Team: Cristiane Shirely MD as PCP - General (Family Medicine) Garett Holt MD (Internal Medicine-Gastroenterology) Ruiz Stokes MD (Internal Medicine-Cardiovascular Disease) Yenny Schwab MD (Internal Medicine-Rheumatology) Review of Systems All other systems reviewed and are negative. Objective Vitals: 08/30/23 1602 Pulse: 72 Resp: 18 Temp: 98.4 ??F (36.9 ??C) TempSrc: Oral SpO2: 94% Weight: 252 lb (114.3 kg) Height: 5' 4 (1.626 m) Physical Exam Vitals reviewed. Constitutional: Appearance: Normal appearance. She is obese. She is not ill-appearing. HENT: Head: Normocephalic and atraumatic. Nose: Nose normal. Mouth/Throat: Mouth: Mucous membranes are moist. Pharynx: Oropharynx is clear. Eyes: Extraocular Movements: Extraocular movements intact. Conjunctiva/sclera: Conjunctivae normal. Pupils: Pupils are equal, round, and reactive to light. Pulmonary: Effort: Pulmonary effort is normal. Breath sounds: Normal breath sounds. Musculoskeletal: General: Normal range of motion. Cervical back: Normal range of motion and neck supple. Skin: General: Skin is warm and dry. Capillary Refill: Capillary refill takes less than 2 seconds. Neurological: General: No focal deficit present. Mental Status: She is alert and oriented to person, place, and time. Mental status is at baseline. Psychiatric: Mood and Affect: Mood normal. Behavior: Behavior normal. Thought Content: Thought content normal. Results for orders placed or performed in visit on 08/30/23 POCT SARS-COV-2 RNA SEP Result Value Ref Range COV19 RNA POCT Positive (A) Negative Narrative The ID NOW is an isothermal nucleic acid amplification assay used to detect nucleic acid from SARS-CoV-2 viral RNA and is intended for use under FDA Emergency Use Authorization only. Negative resultsdo not preclude SARS-CoV-2 infection and should not be used as the sole basis for patient management decisions. Negative results must be combined with clinical observations, patient history, and epidemiological information. Recommend confirmation using alternate method if a negative result is inconsistent with clinical signs and symptoms or if necessary for patient management. Farrell ID NOW Provider Fact Sheet: https://www.fda.gov/media/433710/download Farrell ID NOW Patient Fact Sheet: https://www.fda.gov/media/449370/download Assessment and Plan Alyssa was seen today for headache. Diagnoses and all orders for this visit: Close exposure to COVID-19 virus - PERFORM ID NOW COVID TEST Other orders - POCT SARS-COV-2 RNA SEP COURSE, MEDICAL DECISION MAKING, & PLAN Alyssa Jamil is a 68 y.o. female with a medical history that includes Patient Active Problem List Diagnosis Osteoarthrosis, unspecified whether generalized or localized, unspecified site Ventral hernia HAMIDA (obstructive sleep apnea) History of endometrial cancer Temporal arteritis (HCC) Type 2 diabetes mellitus without complication (HCC) Obesity, Class III, BMI 40-49.9 (morbid obesity) (HCC) Atherosclerosis of aorta (HCC) PMR (polymyalgia rheumatica) (HCC) Incisional hernia, incarcerated Periumbilical abdominal pain Epigastric pain Chronic bronchitis (HCC) and is prescribed Current Outpatient Medications on File Prior to Visit Medication Sig Dispense Refill albuterol (PROVENTIL HFA;VENTOLIN [...] 1 Kit 0 Blood-Glucose Meter,Continuous (DEXCOM G7 IRRIGATION TAX ASSESSOR COLLECTOR) [facility] Misc 1 Each by Misc.(Non-Drug; Combo Route) route as needed. 1 Each 11 Blood-Glucose Sensor (DEXCOM G7 SENSOR) Mis Device 1 Each by Misc.(Non-Drug; Combo Route) [...] 0 fluticasone propionate (FLONASE) 50 mcg/actuation Nasl Raymond, Suspension Use 1 spray(s) in each nostril once daily 16 g 0 fUROsemide (LASIX) 40 mg Oral Tablet One tab daily and may take an extra if needed. 60 Tablet 2 Lancets [facility] 1 Each by [facility]Non-Drug; Combo Route) route 2 times daily. Per formulary. Dx: E11.9 100 Each 11 lisinopriL (PRINIVIL;ZESTRIL) 10 mg Oral Tablet loratadine (CLARITIN) 10 mg Oral Tablet Take 1 tablet by mouth once daily 63 Tablet 0 meloxicam (MOBIC) 15 mg Oral Tablet Take 1 Tablet by mouth daily. 30 Tablet 2 Nebulizer Accessories [facility] Kit Nebulizer accessories 1 Kit 0 olopatadine (PATANOL) 0.1 % Opht Drops Place 1 Drop into both eyes 2 times daily. Administer drops in both eyes. 5 mL 0 ondansetron (ZOFRAN-ODT) 4 mg Oral Tablet, Rapid Dissolve Take 1 Tablet by mouth every 8 hours as needed for Nausea. 15 Tablet 0 ONETOUCH DELICA PLUS LANCET 33 gauge [facility] USE TO CHECK GLUCOSE TWICE [...] facility-administered medications on file prior to visit. 68-year-old female presents today when retested for COVID. Her is currently hospitalized for COVID-19, her adult daughter who is with her today recently tested positive. She is awake alert and oriented she is hemodynamically stable and afebrile she satting 94% room air. Positive for COVID-19, given prescription for molnupiravir and advised to follow-up with her primary care provider in the next 7 days if not improving, given current mask mandates, advised to go to the emergency department with any acute onset of shortness of breath or difficulty breathing or chest pain. Patient was given strict instructions for any severe worsening symptoms they were to present immediately to the emergency department for immediate evaluation. Otherwise, strongly encouraged to follow-up with their PCP to ensure that their symptoms were improving and not worsening. Patient was agreeable with plan of care, verbalized understanding of the care plan, and was discharged in stable condition from the urgent care. Appropriate PPE for the presenting complaint was donned prior to evaluation. This chart was completed using [employer] voice recognition technology and may contain unintended errors. Educated patient regarding the care plan and instructions listed on the After Visit Summary [AVS] for today's visit. They verbalized full understanding of the care plan and instructions given on the AVS for today's visit. Jean Claude Lock APRN documented in this encounter Miscellaneous Notes * Patient Instructions - Jean Claude Lock APRN - 08/30/2023 3:45 PM EST With a positive COVID-19 test and from the onset of symptoms, the CDC is currently recommending: Isolating for at least five days (if symptoms no longer exist, isolation may end after day five). Note: Day 0 is when symptoms are first noticed and day 1 is the first full day after the day symptoms begin. If after the recommended quarantine time, symptoms continue, patients should isolate until they are fever-free for 24 hours (without the use of fever-reducing medication). Please refer to the CDC recommendations at cdc.gov when directing patients, which also include: Wear a high-quality mask if that patient must be around others at home and in public. Do not go places where you are unable to wear a mask. Do not travel until your isolation period has ended, if possible. Stay home and separate from others as much as possible. Use a separate bathroom, if possible. Take steps to improve ventilation at home, if possible. Don???t share personal household items, like cups, towels, and utensils. Monitor your symptoms. If you have an emergency warning sign (like trouble breathing), seek emergency medical care immediately documented in this encounter Plan of Treatment Upcoming Encounters Date Type Department Care Team (Late st Contact Info) Description 07/29/2024 9:00 AM EST Appointment [facility] [address] [place] [address] Jomar Kim MD [address] [place] [address] documented as of this encounter Goals Goal Patient Goal Type Associated Problems Recent Progress Patient-Stated? Author Blood Pressure < 140/90 Blood Pressure 110/72(04/09 2:44 PM EDT) No Rachel Rogers RMA BMI (Calculated) < 30 General 50.9(2023 2:44 PM EDT) No Rachel Rogers RMA Eat better, exercise, reach an ideal body weight General No Ni Clinton, geriatric nurse practitioner Healing General On track(12/03 9:18 AM EDT) [...] weekly. ?? Refer to PCP and/or Technical Consultant, Vascular Specialist as indicated. ?? Monitor [...] Name Priority Date/Time Associated Diagnosis Comments POCT SARS-COV-2 RNA SEP Routine 08/30/2023 5:12 PM EST Close exposure to COVID-19 virus documented in this encounter Results * (ABNORMAL) POCT SARS-COV-2 RNA SEP (08/30/2023 5:12 PM EST) [facility] COV19 RNA POCT Positive(A ) Negative 08/30/2023 4:16 PM EST [facility] Swab NASAL / Unknown 08/30/2023 5 :12 PM EST 08/30/2023 4:16 PM EST Narrative [facility] - 08/30/2023 4:16 PM EST The ID NOW is an isothermal nucleic acid amplification assay used to detect nucleic acid from SARS-CoV-2 viral RNA and is intended for use under FDA Emergency Use Authorization only. ??Negative results do not preclude SARS-CoV-2 infection and should not be used as the sole basis for patient management decisions. ??Negative results must be combined with clinical observations, patient history, and epidemiological information. ??Recommend confirmation using alternate method if a negative result is inconsistent with clinical signs and symptoms or if necessary for patient management. Farrell ID NOW Provider Fact Sheet: https://www.fda.gov/media/008163/download Farrell ID NOW Patient Fact Sheet: ??https://www.fda.gov/media/993737/download Jean Claude Lock APRN POINT OF CARE TEST ORDERABLES Final Result [facility] [address] [place] [id number] documented in this encounter Visit Diagnoses Diagnosis Close exposure to COVID-19 virus- Primary COVID-19 documented in this encounter Orders Nursing Count Last Ordered Date First Orde red Date PERFORM ID NOW COVID TEST 1 08/30/2023 documented in this encounter Additional Health Concerns Infection Onset Date Last Indicated Resolved Time COVID-19 08/30/2023 08/30/2023 09/19/2023 10:1 2 PM EST Assessment Noted Time A fall risk assessment has been complete d for the patient 07/27/2022 10:00 AM EST documented as of this encounter Care Teams Muffler Tender Relationship Specialty Start Date End Date Cristiane Shirley MD [address] [place] [address] PCP - General Family Medicine 08/20/18 12/29/23 Garett Holt MD Internal Medicine-Gastroenterology 12/22/12 Ruiz [place] MD [address] [place] [address] Internal Medicine-Cardiovascular Disease 07/25/14 Yenny Schwab MD [address] [facility] [address] [place], [place] [id number] Internal Medicine-Rheumatology 12/11/16 documented as of this encounter
--- OUTSIDE RECORDS SUMMARY | 2024-07-22 15:58 | XMS_ITS | Encounter Summary ---
Author Organization [place] [address] Care Team Providers Care Irrigator Gravity Flow Name Role Phone Garett Holt MD Unavailable [phone] Ruiz Stokes MD Unavailable [phone] Yenny Schwab MD Unavailable [phone] Cristiane Shirley MD Primary Care Provider [phone] Reason for Visit * Reason Onset Date Comments Samples 10/28/2023 Jardiance Encounter Details Date Type Department Care Team (Late st Contact Info) Description 10/28/2023 Telephone [facility] [address] [place] [address] Cristiane [place] MD [address] [place], [place] [id number] Samples (Jardiance) Social History Tobacco Use Types [...] Date Recorded PHQ-2 Total Score 0 12/21/2022 [facility] Occupat ional [facility] - Occupational Stress Questionnaire Answer Date [...] Tablet by mouth daily. 21 Tablet 10/28/2023 documented in this encounter Miscellaneous Notes * Telephone Encounter - Roslyn Calabrese RMA - 10/28/2023 11:43 AM EST Pt aware samples up front. * Telephone Encounter - Ana Corral - 10/28/2023 11:18 AM EST Select the most appropriate reason for this telephone message: Samples Medication(s): empagliflozin (JARDIANCE) 10 mg Oral Tablet [[id number]] Order Details Dose: 10 mg Route: Oral Frequency: DAILY Dispense Quantity: 21 Tablet Refills: 0 Sig: Take 1 Tablet by mouth daily. Prescribing Provider: Dr. [place] Is this medication on the current medication list? Yes Why do you need samples? Financial reasons Last appointment date: 07/19/23 Additional notes:Please advise documented in this encounter Plan of Treatment Upcoming Encounters Date Type Department Care Team (Late st Contact Info) Description 07/29/2024 9:00 AM EST Appointment [facility] [address] [place] [address] Jomar Kim MD [address] [place] [address] documented as of this encounter [...] neuropathy weekly. ?? Refer to PCP and/or Procurement Accountant, Vascular Specialist as indicated. ?? Monitor patient [...] Discontinue Reason Start Date End Da te empagliflozin (JARDIANCE) 10 mg Oral Tablet Take 1 Tablet by mouth daily. Reorder 08/15/2023 10/28/2023 documented as of this encounter Additional Health Concerns Assessment Noted Time A fall risk assessment has been complete d for the patient 07/27/2022 10:00 AM EST documented as of this encounter Care Teams Irrigator Gravity Flow Relationship Specialty Start Date End Date Cristiane [place] MD [address] [place] [address] PCP - General Family Medicine 08/20/18 12/29/23 Garett Holt MD Internal Medicine-Gastroenterology 12/22/12 Ruiz [place] MD [address] [place] [address] Internal Medicine-Cardiovascular Disease 07/25/14 Yenny Schwab MD [address] [facility] Building [address] [place] [address] Internal Medicine-Rheumatology 12/11/16 documented as of this encounter
--- OUTSIDE RECORDS SUMMARY | 2024-07-22 15:58 | XMS_ITS | Encounter Summary ---
Author Organization [place] [address] Care Team Providers Care Wind Operations Supervisor Name Role Phone Garett Holt MD Unavailable [phone] Ruiz [place] MD Unavailable [phone] Yenny Schwab MD Unavailable [phone] Cristiane [place] MD Primary Care Provider Reason for Visit * Reason Onset Date Comments Medication Management 07/18/2023 Glucagon Encounter Details Date Type Department Care Team (Late st Contact Info) Description 07/18/2023 Telephone [facility] [address] [place] [address] Cristiane [place] MD [address] [place], [place] [id number] Medication Management (Glucagon) Social History Tobacco Use Types Packs/Day Years [...] 12/21/2022 [facility] Occupat ional [facility] - Occupational Stress Questionnaire Answer [...] encounter Miscellaneous Notes * Telephone Encounter - Maryam Juarez - 07/18/2023 11:46 AM EST Select the most appropriate reason for this telephone message: Medication Management/Problem Who is calling? Other well care What medication(s) do you have concerns about: Glucagon proc code [id number] Prescribing provider: Dr [place] What are your concerns/request: this has been approved, fax approval will be sent to your office. Desired outcome: Other nothing just letting you know. Last appointment date: 06/27 Pharmacy: Additional notes: documented in this encounter Plan of Treatment Upcoming Encounters Date Type Department Care Team (Late st Contact Info) Description 07/29/2024 9:00 AM EST Appointment [facility] [address] [place] [address] Jomar Kim MD [address] [place] [address] documented as of this encounter [...] neuropathy weekly. ?? Refer to PCP and/or Curtain Worker, Vascular Specialist as indicated. ?? Monitor [...] documented as of this encounter Care Teams Wind Operations Supervisor Relationship Specialty Start Date End Date Cristiane [place] MD [address] [place] [address] PCP - General Family Medicine 08/20/18 12/29/23 Garett Holt MD Internal Medicine-Gastroenterology 12/22/12 Ruiz [place] MD [address] [place] [id number] Internal Medicine-Cardiovascular Disease 07/25/14 Yenny Schwab MD [address] [facility] [address] [place] [address] Internal Medicine-Rheumatology 12/11/16 documented as of this encounter
--- OUTSIDE RECORDS SUMMARY | 2024-07-22 15:58 | XMS_ITS | Encounter Summary ---
Author Organization [place] [address] Care Team Providers Care Hand Or Machine Paster Name Role Phone Garett Holt MD Unavailable [phone] Ruiz [place] MD Unavailable [phone] Yenny Schwab MD Unavailable [phone] Cristiane Pop MD Primary Care Provider Reason for Visit * Reason Onset Date Comments Home Health 08/12/2023 Encounter Details Date Type Department Care Team (Late st Contact Info) Description 08/12/2023 Telephone [facility] [address] [place] [address] Cristiane Pop MD [address] [place], [place] [id number] Home Health Social History Tobacco Use Types Packs/Day Years [...] Date Recorded PHQ-2 Total Score 0 12/21/2022 [facility] - Occupational Stress Questionnaire Answer Date [...] Date dapagliflozin propanediol (FARXIGA) 10 mg Oral TabletIndications: Type 2 diabetes mellitus without complication, without long-term current use of insulin (HCC) Take 1 Tablet by mouth daily. 30 Tablet 2 08/13/2023 12/15/2023 documented in this encounter Miscellaneous Notes * Telephone Encounter - Yogesh Martínez MD - 08/13/2023 7:48 AM EST Farxiga sent in instead * Addendum Note - Yogesh Martínez MD - 08/13/2023 7:48 AM ESTAddended by: YOGESH MARTÍNEZ on: 08/13/2023 07:48 AM Modules accepted: Orders * Telephone Encounter - Elkin Barfield RMA - 08/12/2023 5:23 PM EST Spoke with Bonifacio Valdovinos informed of orders. Bonifacio states insurance not covering Jardiance. Too expensive. Please advise cheaper alternative. * Addendum Note - Cristiane Pop MD - 08/12/2023 5:15 PM ESTAddended by: CRISTIANE POP on: 08/12/2023 05:15 PM Modules accepted: Orders * Telephone Encounter - Cristiane Pop MD - 08/12/2023 5:15 PM EST Labs ordered please check on meds looks like sent 08/07 * Telephone Encounter - Nathalie Davis - 08/12/2023 1:36 PM EST Select the most appropriate reason for this telephone message: Other Who is calling (name & relationship to patient if not the patient): Ankita-Ammaliha What is needed OR why are they calling: phillip meds sent on 08/07/23 be resent pharmacy has not received also needs orders CBC, CMP A1C pt has padilla, lindsay, cold episodes last 1-2 hours When is this needed by: yodit Where does this information need to go: call back to adv Additional information: documented in this encounter Plan of Treatment Upcoming Encounters Date Type Department Care Team (Late st Contact Info) Description 07/29/2024 9:00 AM EST Appointment [facility] [address] [place] [address] Jomar Kim MD [address] [place] [address] documented as of this encounter Goals Goal Patient Goal Type Associated Problems Recent Progress Patient-Stated? Author Blood Pressure < 140/90 Blood Pressure 110/72(04/09 2:44 PM EDT) No Rachel Rogers RMA BMI (Calculated) < 30 General 50.9(2023 2:44 PM EDT) No Rachel Rogers RMA Eat better, exercise, reach an ideal body weight General No Ni Clinton architectural drafter Healing General On track(12/03 9:18 AM EDT) [...] neuropathy weekly. ?? Refer to PCP and/or Child Welfare Manager, Vascular Specialist as indicated. ?? Monitor [...] documented as of this encounter Results * HEMOGLOBIN A1C (11/09/2023 3:04 PM EST) Hgb A1C 5.6 4.2 - 5.6 % 11/09/2023 8:22 PM EST [facility] Est. Avg Glucose 114 mg/dL 11/09/2023 8:22 PM EST [facility] Blood VENOUS BLOOD / Unknown Venipuncture / Unknown 11/09/2023 3:04 PM EST 11/09/2023 3:04 PM EST Narrative [facility] - 11/09/2023 8:22 PM EST REFERENCE RANGE: Normal: 4.0-5.6% Pre-diabetes: 5.7-6.4% Provisional diagnosis of diabetes: >6.4% Hgb F>10% and anything which shortens red cell survival, such as hemolytic anemia, or unstable hemoglobin variants such as HbSS, HbSC, or HbCC, will lower the HbA1c value associated with a given level of glycemic control. ? us Cristiane Pop MD CHEMISTRY ORDERABLES Final Res ult [facility] [address] [facility], [address] [place] [id number] documented in this encounter Visit Diagnoses Diagnosis Type 2 diabetes mellitus without complication, without long-term current use of insulin (HCC)- Primary documented in this encounter Discontinued Medications Medication Sig Discontinue Reason Start Date End Da te JARDIANCE 10 mg Oral Tablet Take 1 Tablet by mouth daily. Cancelled by 08/07/2023 08/13/2023 documented as of this encounter Orders Lab Orders Without Results Count Last Ordered D ate First Ordered Date CBC WITH DIFF 1 08/12/2023 COMPREHENSIVE METABOLIC PANEL 1 08/12/2023 documented in this encounter Additional Health Concerns Assessment Noted Time A fall risk assessment has been complete d for the patient 07/27/2022 10:00 AM EST documented as of this encounter Care Teams Hand Or Machine Paster Relationship Specialty Start Date End Date Cristiane Pop MD [address] [place] [address] PCP - General Family Medicine 08/20/18 12/29/23 Garett [place] MD Internal Medicine-Gastroenterology 12/22/12 Ruiz [place] MD [address] [place] [address] Internal Medicine-Cardiovascular Disease 07/25/14 Yenny Schwab MD [address] [place] [address] Internal Medicine-Rheumatology 12/11/16 documented as of this encounter
[2024-07-22 15:59] LABS: Microscopic, Urine URINE MICROSCOPIC (MICROSCOPIC)
--- OUTSIDE RECORDS SUMMARY | 2024-07-22 15:59 | XMS_ITS | Encounter Summary ---
Author [place] [address] Care Team Providers Care Board Machine Set Up Operator Name Role Phone Garett Holt MD Unavailable [phone] Ruiz Stokes MD Unavailable [phone] Yenny Schwab MD Unavailable [phone] Cristiane Shirley MD Primary Care Provider [phone] Reason for Visit * Reason Comments Follow-up Encounter Details Date Type Department Care Team (Latest Contact Info) Description 04/28/2023 11:20 AM EDT Office Visit [facility] [address] [address] Lyssa Fang, ACID TANK CLEANER [address] [place] [address] Urinary frequency (Primary Dx); OAB (overactive bladder); Female genital prolapse, unspecified type; Bladder pain Social History Tobacco Use Types Packs/Day [...] Date Recorded PHQ-2 Total Score 0 12/21/2022 [facility]at ional [facility] - Occupational [...] Taken Comments Blood Pressure - - Pulse 80 04/28/2023 11:24 AM EDT Temperature - - Respiratory Rate - - Oxygen Saturation 99% 04/28/2023 11:24 AM EDT Inhaled Oxygen Concentration - - Weight 116.1 kg (256 lb) 04/28/2023 11:24 AM EDT Height - - Body Mass Index 43.94 01/10/2023 10:58 AM EDT documented in this encounter Functional Status * Is the person deaf or does he/she have serious difficulty hearing? Answer Date of Assessment Author No 12/01/2021 10:24 AM EDT Rodolfo Skelton MA * Is the person blind or does he/she have serious difficulty seeing even when wearing glasses? Answer Date of Assessment Author No 12/01/2021 10:24 AM EDT Rodolfo Skelton MA * Does this person have serious difficulty walking or climbing stairs? Answer Date of Assessment Author Yes 12/01/2021 10:24 AM EDT Rodolfo Skelton MA * Does this person have difficulty dressing or bathing? Answer Date of Assessment Author No 12/01/2021 10:24 AM EDT Rodolfo Skelton MA * Because of a physical, mental or emotional condition, does this person have difficulty doing errands alone such as visiting a doctor's office or shopping? Answer Date of Assessment Author No 12/01/2021 10:24 AM EDT Rodolfo Skelton MA documented as of this encounter Mental Status * Because of a physical, mental or emotional condition, does this person have serious difficulty concentrating, remembering or making decisions? Answer Entry Date Author No 12/01/2021 10:24 AM Rodoflo Dill MA documented in this encounter Ordered Prescriptions Prescription Sig Dispense Quantity Refills Last Filled Start Date End Date trospium (SANCTURA) 20 mg Oral TabletIndications: Urinary frequency,OAB (overactive bladder) Take 1 Tablet by mouth 2 times daily. 60 Tablet 5 04/28/2023 06/07/2023 documented in this encounter Progress Notes * Lyssa Fang APRN - 04/28/2023 11:20 AM EDT Images from the original note were not included. Lyssa Fang APRN [facility] NEW Patient Note SUBJECTIVE: Chief Complaint Patient presents with Follow-up HPI: Pt is being referred to Urogyn for the following: overactive bladder, pelvic pain, and prolapse. Last seen by Dr. Liz 2020 Reports concerns with suprapubic discomfort, pain at the end of urination and bilateral upper leg pain--->for which she was instructed to follow up with our office since she has prolapse. Pt says her prolapse feels weird but is not bothersome Pt bothered by frequency every 30 mins Nocturia 2-3 No leakage Pain at the end of urination Drinks tea and Jayesh D all day Minimal water Takes 3 diuretics She has tried oxybutynin and detrol Reviewed UROS 2018, severe OAB with small capacities Here with son Denies vaginal bleeding or discharge. Review of Systems Constitutional: Negative for fatigue and fever. Respiratory: Negative for shortness of breath. Gastrointestinal: Negative for abdominal pain. Genitourinary: Positive for dysuria, frequency, pelvic pain and vaginal pain. Negative for dyspareunia, urgency, vaginal bleeding and vaginal discharge. Skin: Negative for rash. Neurological: Negative for dizziness. Psychiatric/Behavioral: Negative for behavioral problems. OBJECTIVE: Physical Exam Constitutional: General: She is not in acute distress. Appearance: Normal appearance. She is well-developed. She is not ill-appearing, toxic-appearing or diaphoretic. Pulmonary: Effort: Pulmonary effort is normal. No respiratory distress. Abdominal: General: There is no distension. Musculoskeletal: General: Normal range of motion. Skin: General: Skin is warm and dry. Neurological: Mental Status: She is alert and oriented to person, place, and time. Mental status is at baseline. Psychiatric: Mood and Affect: Mood normal. Behavior: Behavior normal. Thought Content: Thought content normal. Judgment: Judgment normal. Vitals: 04/28/23 1124 Pulse: 80 SpO2: 99% Weight: 256 lb (116.1 kg) Pelvic Exam: Normal EFG Atrophy yes Normal mons and clitoris Normal labia Normal urethra and meatus Normal perineum and anus No masses Prolapse Stage 3 Bleeding no Discharge no No urethral pain Exam complicated by patient decreased mobility, pain and body habitus Spec exam not included Office Fill Study Catheter PVR = 40 mL C&S pending No results found for this visit on 04/28/23. HIGH COMPLEXITY BILLING STATEMENT: Time spent for today's services (including pre-visit chart and record review, patient visit, and after-visit documentation) totaled 63 minutes, and much of this time was spent counseling and/or coordination of care, as described in my note above. ASSESSMENT & PLAN: Assessment Diagnoses and all orders for this visit: Urinary frequency - URINE CULTURE (NO STAIN); Future - trospium (SANCTURA) 20 mg Oral Tablet; Take 1 Tablet by mouth 2 times daily. Dispense: 60 Tablet;Refill: 5 OAB (overactive bladder) - trospium (SANCTURA) 20 mg Oral Tablet; Take 1 Tablet by mouth 2 times daily. Dispense: 60 Tablet;Refill: 5 Female genital prolapse, unspecified type Bladder pain URINARY INCONTINENCE - Patient exhibits subjective and objective evidence today of voiding dysfunction. We discussed the pathophysiology of her disease process via anatomic drawings. She is informed of treatment options including but not limited to: expectant, conservative such as pelvic physical therapy, behavioral modifications (i.e. Weight loss, dietary changes, timed voiding and retraining, smoking cessation), and medications, or surgery. Patient bothered most by pain and wishes to proceed with the following after further testing. Detailed conversation discussing that her PROLAPSE is not causing her urinary frequency Prolapse VERY unlikely to cause bilateral leg pain Prolapse surgery will not manage her urinary complaints and concerns Stop oxybutynin Start trospium STOP DRINKING TEA and JAYESH D PVR normal Urine culture pending Information sheets provided If prolapse/bulge bothersome, we can proceed with UROS and consent, however discussed with pt that she would not tolerate testing well as she did not manage our pelvic exam easily Literature given and reviewed. All questions were answered and patient's goals and expectations were met today. Return for 3 month medication follow up. Lyssa Fang APRN Cosigned by Poornima Liz MD at 04/28/2023 1:04 PM EDT * Lyssa Fang APRN - 04/28/2023 11:20 AM EDT Negative culture. Collisionablet message sent to patient. Lyssa Fang APRN documented in this encounter Plan of Treatment Upcoming Encounters Date Type Department Care Team (Late st Contact Info) Description 07/29/2024 9:00 AM EST Appointment [facility] [address] [place] [id number] Jomar Kim MD [address] [facility] [place] [id number] documented as of this encounter [...] neuropathy weekly. ?? Refer to PCP and/or Resident Advisor, Vascular Specialist as indicated. ?? Monitor patient [...] Procedure Name Priority Date/Time Associated Diagnosis Comments URINE CULTURE (NO STAIN) Routine 04/28/2023 11:53 AM EDT Urinary frequency documented in this encounter Results * URINE CULTURE (NO STAIN) (04/28/2023 11:53 AM EDT) Culture No growth at 30 hours. 04/30/2023 5:59 AM EDT [facility] URINE SPECIMEN OBTAINED VIA STRAIGHT CATHETER / Unknown 04/28/2023 11:53 AM EDT 04/28/2023 11:53 AM EDT us Lyssa Fang ACID TANK CLEANER MICROBIOLOGY - GENERAL O RDERABLES Final Result [facility] [address] [place] [address] , [address] [place] [id number] documented in this encounter Visit Diagnoses Diagnosis Urinary frequency- Primary OAB (overactive bladder) Hypertonicity of bladder Female genital prolapse, unspecified type Bladder pain Other symptoms involving urinary system documented in this encounter Additional Health Concerns Assessment Noted Time A fall risk assessment has been complete d for the patient 07/27/2022 10:00 AM EST documented as of this encounter Care Teams Board Machine Set Up Operator Relationship Specialty Start Date End Date Cristiane Shirley MD [address] [place] [address] PCP - General Family Medicine 08/20/18 12/29/23 Garett Holt MD Internal Medicine-Gastroenterology 12/22/12 Ruiz Stokes MD [address] [place] [id number] Internal Medicine-Cardiovascular Disease 07/25/14 Yenny Schwab MD [address] [place] [id number] Internal Medicine-Rheumatology 12/11/16 documented as of this encounter
--- OUTSIDE RECORDS SUMMARY | 2024-07-22 15:59 | XMS_ITS | Encounter Summary ---
Author Organization [place] [address] Care Team Providers Care Hotel Front Desk Clerk Name Role Phone Garett Holt MD Unavailable [phone] Ruiz Stokes MD Unavailable [phone] Yenny Schwab MD Unavailable [phone] Cristiane Shirley MD Primary Care Provider Reason for Visit * Reason Onset Date Comments Follow-up 07/04/2023 Encounter Details Date Type Department Care Team (Late st Contact Info) Description 07/04/2023 Telephone [facility] [address] [place] [address] Cristiane Shirley MD [address] [place], [place] [id number] Follow-up Social History Tobacco Use Types Packs/Day Years [...] Date Recorded PHQ-2 Total Score 0 12/21/2022 [facility] - Occupational Stress Questionnaire Answer Date [...] Telephone Encounter - Bre Patel MA - 07/04/2023 5:39 PM EDT call back on Friday * Telephone Encounter - Nathalie Davis - 07/04/2023 4:35 PM EDT Select the most appropriate reason for this telephone message: Other Who is calling (name & relationship to patient if not the patient): [employer] What is needed OR why are they calling: calling to f/u on PA needs to know what its for When is this needed by: yodit Where does this information need to go: call back Additional information: documented in this encounter Plan of Treatment Upcoming Encounters Date Type Department Care Team (Late st Contact Info) Description 07/29/2024 9:00 AM EST Appointment [facility] [address] [place] [address] Jomar Kim MD [address] [place] [address] documented as of this encounter Goals Goal Patient Goal Type Associated Problems Recent Progress Patient-Stated? Author Blood Pressure < 140/90 Blood Pressure 110/72(04/09 2:44 PM EDT) No Rachel Rogers RMA BMI (Calculated) < 30 General 50.9(2023 2:44 PM EDT) No Racehl Rogers RMA Eat better, exercise, reach an ideal body weight General No Ni Clinton percussion tuner Healing General On track(12/03 9:18 AM EDT) [...] neuropathy weekly. ?? Refer to PCP and/or Geospatial Specialist, Vascular Specialist as indicated. ?? Monitor [...] documented as of this encounter Care Teams Hotel Front Desk Clerk Relationship Specialty Start Date End Date Cristiane Shirley MD [address] [place] [address] PCP - General Family Medicine 08/20/18 12/29/23 Garett Holt MD Internal Medicine-Gastroenterology 12/22/12 Ruiz Stokes MD [address] [place], [place] [id number] Internal Medicine-Cardiovascular Disease 07/25/14 Yenny Schwab MD [address] [facility] [address] [place] [address] Internal Medicine-Rheumatology 12/11/16 documented as of this encounter
--- OUTSIDE RECORDS SUMMARY | 2024-07-22 15:59 | XMS_ITS | Encounter Summary ---
Author Organization [place] [address] Care Team Providers Care Steel Turner Name Role Phone Garett Holt MD Unavailable [phone] Ruiz Stokes MD Unavailable [phone] Yenny Schwab MD Unavailable [phone] Cristiane Shirley MD Primary Care Provider Reason for Visit * Reason Onset Date Comments Referral 05/22/2023 Encounter Details Date Type Department Care Team (Late st Contact Info) Description 05/22/2023 Patient Outreach [facility] [address] [place] [id number] Lionel Martinez, BA, COS Referral Social History Tobacco Use Types Packs/Day Years [...] Date Recorded PHQ-2 Total Score 0 12/21/2022 [facility] Occupat ional Health - Occupational Stress [...] of Assessment Author No 12/01/2021 10:24 AM Rodolfo Dill MA * Is the person blind or does he/she have serious difficulty seeing even when wearing glasses? Answer Date of Assessment Author No 12/01/2021 10:24 AM Rodolfo Dill MA * Does this person have serious difficulty walking or climbing stairs? Answer Date of Assessment Author Yes 12/01/2021 10:24 AM Rodolfo Dill MA * Does this [...] Entry Date Author No 12/01/2021 10:24 AM EDT Rodolfo Skelton MA documented in this encounter Progress Notes * Lionel Martinez BA, COS - 05/22/2023 11:43 AM EDT Screw Eye Assembler Management Referral Request Referral received from: Jeanette Stover RN Referral note: Resource Coordination - pt requesting assistance to obtain a shower chair with a back- hers broke Assigned via round antonio to: Juju Boyd LSW documented in this encounter Plan of Treatment Upcoming Encounters Date Type Department Care Team (Late st Contact Info) Description 07/29/2024 9:00 AM EST Appointment [facility] [address] [place], [place] [id number] Jomar Kim MD [address] [place] [address] documented as of this encounter Goals Goal Patient Goal Type Associated Problems Recent Progress Patient-Stated? Author Blood Pressure < 140/90 Blood Pressure 110/72(04/09 2:44 PM EDT) No Rachel Rogers, MULU BMI (Calculated) < 30 General 50.9(2023 2:44 PM EDT) No Rachel Rogers, CAROLA Eat better, exercise, reach an ideal body weight General No Ni Clinton, bag mender Healing General On track(12/03 9:18 AM EDT) [...] neuropathy weekly. ?? Refer to PCP and/or Material Yard Clerk, Vascular Specialist as indicated. ?? Monitor patient [...] documented as of this encounter Care Teams Steel Turner Relationship Specialty Start Date End Date Cristiane Shirley MD [address] [place] [address] PCP - General Family Medicine 08/20/18 12/29/23 Garett Holt MD Internal Medicine-Gastroenterology 12/22/12 Ruiz Stokes MD [address] [place] [address] Internal Medicine-Cardiovascular Disease 07/25/14 Yenny Schwab MD [address] [place] [address] Internal Medicine-Rheumatology 12/11/16 documented as of this encounter
--- OUTSIDE RECORDS SUMMARY | 2024-07-22 15:59 | XMS_ITS | Encounter Summary ---
Author Organization [place] [address] Care Team Providers Care Food Service Steward Name Role Phone Garett Holt MD Unavailable [phone] Ruiz Stokes MD Unavailable [phone] Yenny Schwab MD Unavailable [phone] Cristiane Shirley MD Primary Care Provider [phone] Reason for Visit * Reason Onset Date Comments Comprehensive Medication Review 06/19/2023 Encounter Details Date Type Department Care Team (Latest Contact Info) Description 06/19/2023 Patient Outreach [facility] [address] [place] [address] Aleena Manning, Alvarado Comprehensive Medication Review Social History Tobacco Use Types Packs/Day Years [...] Date Recorded PHQ-2 Total Score 0 12/21/2022 [facility]at [facility] - Occupational Stress Questionnaire Answer Date Recorded [...] Lisa Patel MA documented in this encounter Progress Notes * Aleena Manning PharmD - 06/19/2023 1:37 PM EDT .Attempted to reach patient for scheduled referral CMR. Left message. If patient returns call, pharmacist can be reached between 7:30am and 4:00pm at the following number: [phone] Aleena Manning PharmD Rectifying Operator Pharmacist documented in this encounter Plan of Treatment Upcoming Encounters Date Type Department Care Team (Late st Contact Info) Description 07/29/2024 9:00 AM EST Appointment [facility] [address] [place], [place] [phone] Jomar Kim MD [address] [place] [address] documented as of this encounter Goals Goal Patient Goal Type Associated Problems Recent Progress Patient-Stated? Author Blood Pressure < 140/90 Blood Pressure 110/72(04/09 2:44 PM EDT) No Rachel Rogers RMA BMI (Calculated) < 30 General 50.9(2023 2:44 PM EDT) No Rachel Rogers RMA Eat better, exercise, reach an ideal body weight General No Ni Clinton, head mixer Healing General On track(12/03 9:18 AM EDT) No Herd, Bessie M., RN Note: Wound volume reduction goals ?? [...] neuropathy weekly. ?? Refer to PCP and/or Bilingual Office Assistant, Vascular Specialist as indicated. ?? Monitor patient [...] documented as of this encounter Care Teams Food Service Steward Relationship Specialty Start Date End Date Cristiane Shirley MD [address] [place] [address] PCP - General Family Medicine 08/20/18 12/29/23 Garett Holt MD Internal Medicine-Gastroenterology 12/22/12 Ruiz Stokes MD [address] [place] [address] Internal Medicine-Cardiovascular Disease 07/25/14 Yenny Schwab MD [address] [address] Internal Medicine-Rheumatology 12/11/16 documented as of this encounter
--- OUTSIDE RECORDS SUMMARY | 2024-07-22 15:59 | XMS_ITS | Encounter Summary ---
Author Organization [place] [address] Care Team Providers Care Data Librarian Name Role Phone Garett Holt MD Unavailable [phone] Ruiz Stokes MD Unavailable [phone] Yenny Schwab MD Unavailable [phone] Cristiane Shirley MD Primary Care Provider Reason for Visit * Reason Onset Date Comments Letter for School/Work 07/07/2023 Note for son missing work to take pt to get tests Encounter Details Date Type Department Care Team (Late st Contact Info) Description 07/07/[address] [facility] [address] [place] [address] Cristiane Shirley MD [address] [place], [place] [phone] Letter for School/Work (Note for son missing work to take pt to get tests) Social History Tobacco Use Types Packs/Day Years [...] Date Recorded PHQ-2 Total Score 0 12/21/2022 [facility] Occupat ional Health - Occupational Stress [...] Miscellaneous Notes * Telephone Encounter - Nathalie Lin - 07/08/2023 8:00 AM EDT Called Clementina back. No answer, went right to vmail. stated that [facility] paperwork had been filled out and faxed to [employer] employee on 06/03/2023, it was a complete fax. This was faxed to the number given - [phone] Mailing [employer] a copy of this paperwork. IF SOMEONE CALLS BACK FOR ALYSSA: I can create work note but need some info - What where the dates needed on the letter? Do they want the letter mailed, sent to [facility], or are the going to pick it up? * Telephone Encounter - Doron Rojas APRN - 07/07/2023 5:07 PM EDT OK for note to cover the date of her testing * Telephone Encounter - Vicky Oliva MA - 07/07/2023 4:28 PM EDT Please advise * Telephone Encounter - Anahi Redd MA - 07/07/2023 2:59 PM EDT Is this ok? * Telephone Encounter - Susan Kim, Clerical Staff - 07/07/2023 2:41 PM EDT Select the most appropriate reason for this telephone message: Other Who is calling (name & relationship to patient if not the patient): daughter What is needed OR why are they calling: info When is this needed by: yodit Where does this information need to go: Additional information: The patient had to be taken to get x-rays by her son (Janey) and the son's work is needing a letter stating that he in fact took the pt to get tests because he missed work to take pt. Please fax to the number above documented in this encounter Plan of Treatment Upcoming Encounters Date Type Department Care Team (Late st Contact Info) Description 07/29/2024 9:00 AM EST Appointment [facility] [address] [place] [address] Jomar Kim MD [address] [place] [address] documented as of this encounter [...] neuropathy weekly. ?? Refer to PCP and/or Peer Specialist, Vascular Specialist as indicated. ?? Monitor [...] documented as of this encounter Care Teams Data Librarian Relationship Specialty Start Date End Date Cristiane Shirley MD [address] [place] [address] PCP - General Family Medicine 08/20/18 12/29/23 Garett Holt MD Internal Medicine-Gastroenterology 12/22/12 Ruiz Stokes MD [address] [place] [id number] Internal Medicine-Cardiovascular Disease 07/25/14 Yenny Schwab MD [address] [place] [id number] Internal Medicine-Rheumatology 12/11/16 documented as of this encounter
--- OUTSIDE RECORDS SUMMARY | 2024-07-22 15:59 | XMS_ITS | Encounter Summary ---
Author Organization [place] [address] Care Team Providers Care Enamel Sprayer Name Role Phone Garett Holt MD Unavailable [phone] Ruiz Stokes MD Unavailable [phone] Yenny Schwab MD Unavailable [phone] Cristiane Shirley MD Primary Care Provider [phone] Reason for Visit * Reason Onset Date Comments Medication Refill 06/07/2023 Encounter Details Date Type Department Care Team (Late st Contact Info) Description 06/07/2023 Refill [facility] [address] [address] Lyssa Fang, SURFACE BOSS [address] [place] [address] Medication Refill Social History Tobacco Use Types [...] Date Recorded PHQ-2 Total Score 0 12/21/2022 [facility] Occupat ional Health - [...] End Date trospium (SANCTURA) 20 mg Oral TabletIndications:U rinary frequency,OAB (overactive bladder) Take 1 Tablet by mouth 2 times daily. 60 Tablet 5 06/09/2023 documented in this encounter Plan of Treatment Upcoming Encounters Date Type Department Care Team (Late st Contact Info) Description 07/29/2024 9:00 AM EST Appointment [facility] [address] [place], [place] [phone] Jomar Kim MD [address] [place] [address] documented as of this encounter Goals Goal Patient Goal Type Associated Problems Recent Progress Patient-Stated? Author Blood Pressure < 140/90 Blood Pressure 110/72(04/09 2:44 PM EDT) No Rachel Rogers RMA BMI (Calculated) < 30 General 50.9(2023 2:44 PM EDT) No Rachel Rogers RMA Eat better, exercise, reach an ideal body weight General No Ni Clinton, commercial accountant Healing General On track(12/03 9:18 AM EDT) [...] neuropathy weekly. ?? Refer to PCP and/or Car Shagger, Vascular Specialist as indicated. ?? Monitor patient [...] as of this encounter Visit Diagnoses Diagnosis Urinary frequency OAB (overactive bladder) Hypertonicity of bladder documented in this encounter Discontinued Medications Medication Sig Discontinue Reason Start Date End Da te trospium (SANCTURA) 20 mg Oral TabletIndications:Urinar y frequency,OAB (overactive bladder) Take 1 Tablet by mouth 2 times daily. Reorder 04/28/2023 06/07/2023 documented as of this encounter Additional Health Concerns Assessment Noted Time A fall risk assessment has been complete d for the patient 07/27/2022 10:00 AM EST documented as of this encounter Care Teams Enamel Sprayer Relationship Specialty Start Date End Date Cristiane Shirley MD [address] [place] [address] PCP - General Family Medicine 08/20/18 12/29/23 Garett Holt MD Internal Medicine-Gastroenterology 12/22/12 Ruiz Stokes MD [address] [place] [address] Internal Medicine-Cardiovascular Disease 07/25/14 Yenny Schwab MD [address] [facility] Building [address] [place] [address] Internal Medicine-Rheumatology 12/11/16 documented as of this encounter
--- OUTSIDE RECORDS SUMMARY | 2024-07-22 15:59 | XMS_ITS | Encounter Summary ---
Author Organization [place] [address] Care Team Providers Care Customer Support Associate Name Role Phone Graett Holt MD Unavailable [phone] Ruiz Stokes MD Unavailable [phone] Yenny Schwab MD Unavailable [phone] Cristiane Shirley MD Primary Care Provider [phone] Reason for Visit * Reason Onset Date Comments Medication Management 06/05/2023 Clinical C ertified Plasterer Spot: inspector assemblies and installations [phone] Encounter Details Date Type Department Care Team (Late st Contact Info) Description 06/05/2023 Patient Outreach [facility] [address] [place] [address] Jarred Ochoa CPhT Medication Management (Clinical Comfort Station Supervisor: inspector assemblies and installations [phone] ) Social History Tobacco Use Types Packs/Day [...] Date Recorded PHQ-2 Total Score 0 12/21/[address] [facility] - Occupational Stress Questionnaire Answer Date Recorded [...] documented in this encounter Progress Notes * Jarred Ochoa CPhT - 06/05/2023 11:55 AM EDT Ambulatory Pharmacy Outreach 06/05/2023 by Jarred Ochoa CPhT Patient Alyssa Jamil was contacted by Clinical Comfort Station Supervisor for WORK QUEUE REFERRAL. Clinical Plasterer Spot outreaching to patient to attempt to schedule pharmacist appointment from referral. No TIPS at this time This is the FIRST attempt to reach patient. Patient was agreeable to scheduling appointment. Vivek scheduled pharmacist appointment for 06/12/2023. Patient was instructed to bring medication list and/or medications in their original containers to appointment for pharmacist to review. No further outreach attempts will be made. Jrared Ochoa CPhT documented in this encounter Plan of Treatment Upcoming Encounters Date Type Department Care Team (Late st Contact Info) Description 07/29/2024 9:00 AM EST Appointment [facility] [address] [place] [address] Jomar Kim MD [facility] [place] [place] [address] documented as of this encounter Goals Goal Patient Goal Type Associated Problems Recent Progress Patient-Stated? Author Blood Pressure < 140/90 Blood Pressure 110/72(04/09 2:44 PM EDT) No Rachel Rogers RMA BMI (Calculated) < 30 General 50.9(2023 2:44 PM EDT) No Rachel Rogers RMA Eat better, exercise, reach an ideal body weight General No Ni Clinton finishing tunnel operator Healing General On track(12/03 9:18 AM [...] neuropathy weekly. ?? Refer to PCP and/or Roving Changer, Vascular Specialist as indicated. ?? Monitor patient [...] documented as of this encounter Care Teams Customer Support Associate Relationship Specialty Start Date End Date Utter, Cristiane Campbell MD [address] [place], [place] [id number] PCP - General Family Medicine 08/20/18 12/29/23 Garett Holt MD Internal Medicine-Gastroenterology 12/22/12 Ruiz Stokes MD [address] [place], [place] [id number] Internal Medicine-Cardiovascular Disease 07/25/14 Yenny Schwab MD 651 [facility] [address] [place] [address] Internal Medicine-Rheumatology 12/11/16 documented as of this encounter
--- OUTSIDE RECORDS SUMMARY | 2024-07-22 15:59 | XMS_ITS | Encounter Summary ---
Author Organization [place] [address] Care Team Providers Care Sys Dir Name Role Phone Garett Holt MD Unavailable [phone] Ruiz Stokes MD Unavailable [phone] Yenny Schwab MD Unavailable [phone] Cristiane Shirley MD Primary Care Provider [phone] Reason for Referral * Consultation (Routine) - Closed Specialty Diagnoses / Procedures Referred By Contalissa t Referred To Contact Pharmacist - Pharmacotherapy Diagnoses At risk for polypharmacy Doron Rojas APRN [address] [place] [address] Phone: tel: fax: Referral ID Status Reason Start Date Expiration Date V isits Requested Visits Authorized [id number] Closed Specialty Services Required 05/31/2023 05/30/2024 99 99 Question Answer Services Comprehensive Medication Review Reason for Visit * Reason Comments Leg Pain Encounter Details Date Type Department Care Team (Late st Contact Info) Description 05/31/2023 9:00 AM EDT Office Visit [facility] [address] [place] [address] Doron Rojas, PROP DRAWER [address] [place] [address] Bilateral hip pain (Primary Dx); At risk for polypharmacy; Type 2 diabetes mellitus without complication, without long-term current use of insulin (HCC); Immunization due; Need for Tdap vaccination Social History Tobacco Use Types Packs/Day Years [...] Date Recorded PHQ-2 Total Score 0 12/21/2022 [facility]at ional Health - Occupational Stress [...] Taken Comments Blood Pressure - - Pulse - - Temperature 36.3 ??C (97.3 ??F) 05/31/2023 9:10 AM ED T Respiratory Rate - - Oxygen Saturation - - Inhaled Oxygen Concentration - - Weight 115.9 kg (255 lb 9.6 oz) 05/31/2023 9:10 AM EDT Height 162.6 cm (5' 4 ) 05/31/2023 9:10 AM EDT Body Mass Index 43.87 05/31/2023 9:10 AM EDT documented in this encounter Functional [...] Refills Last Filled Start Date End Date predniSONE (DELTASONE) 20 mg Oral TabletIndications: Bilateral hip pain Take 2 Tablets by mouth daily for 5 days. 10 Tablet 05/31/2023 3 documented in this encounter Progress Notes * Doron Rojas, RYAN - 05/31/2023 9:00 AM EDT Vitals: 05/31/23 0910 Temp: 97.3 ??F (36.3 ??C) TempSrc: Forehead Weight: 255 lb 9.6 oz (115.9 kg) Height: 5' 4 (1.626 m) SUBJECTIVE: Chief Complaint Patient presents with Leg Pain HPI: Leg Pain The pain is present in the left lower leg and right lower leg. This is a chronic problem. The current episode started more than 1 year ago. There has been no history of extremity trauma. The problem occurs constantly. The problem has been gradually worsening. The pain is at a severity of 7/10. The pain is moderate. The symptoms are aggravated by activity and standing. She has tried acetaminophen and NSAIDS for the symptoms. The treatment provided mild relief. Presents with bilateral lower extremity/hip pain that has worsened over the last several weeks. Hastaken otc meds without improvement. Recent XRs show arthritis. Review of Systems Musculoskeletal: Positive for arthralgias and gait problem. OBJECTIVE: Physical Exam Constitutional: General: She is not in acute distress. Appearance: She is well-developed. She is not diaphoretic. HENT: Head: Normocephalic and atraumatic. Eyes: General: Right eye: No discharge. Left eye: No discharge. Neck: Vascular: No JVD. Cardiovascular: Rate and Rhythm: Normal rate and regular rhythm. Heart sounds: Normal heart sounds. No murmur heard. Pulmonary: Effort: Pulmonary effort is normal. No respiratory distress. Breath sounds: Normal breath sounds. No wheezing or rales. Musculoskeletal: General: Normal range of motion. Cervical back: Normal range of motion and neck supple. Skin: General: Skin is warm and dry. Findings: No rash. Neurological: Mental Status: She is alert and oriented to person, place, and time. Psychiatric: Behavior: Behavior normal. Thought Content: Thought content normal. Judgment: Judgment normal. Assessment Diagnoses and all orders for this visit: Bilateral hip pain - predniSONE (DELTASONE) 20 mg Oral Tablet; Take 2 Tablets by mouth daily for 5 days. Dispense: 10 Tablet; Refill: 0 At risk for polypharmacy - AMB REFERRAL TO PHARMACY/MEDICATION MANAGEMENT Type 2 diabetes mellitus without complication, without long-term current use of insulin (HCC) (Chronic) - HEMOGLOBIN A1C - LIPID PANEL REFLEX - COMPREHENSIVE METABOLIC PANEL Immunization due - QUADRIVALENT FLUZONE HIGH DOSE - PNEUMOCOCCAL POLYSACCHARIDE VACCINE 23-VALENT =>2YO SQ/IM Need for Tdap vaccination - TDAP VACCINE =>7YO IM -To return for Medicare annual exam in July as scheduled. documented in this encounter Plan of Treatment Upcoming Encounters Date Type Department Care Team (Late st Contact Info) Description 07/29/2024 9:00 AM EST Appointment [facility] [address] [place] [address] Jomar Kim MD [address] [place] [address] Scheduled Referrals Name Type Priority Associated Diagnoses Orde r Schedule AMB REFERRAL TO PHARMACY/MEDICATION MANAGEMENT Outpatient Referral Routine At risk for polypharmacy Ordered: 05/31/2023 documented as of this encounter Goals Goal Patient Goal Type Associated Problems Recent Progress Patient-Stated? Author Blood Pressure < 140/90 Blood Pressure 110/72(04/09 2:44 PM EDT) No Rachel Rogers RMA BMI (Calculated) < 30 General 50.9(2023 2:44 PM EDT) No Rachel Rogers, MULU Eat better, exercise, reach an ideal body weight General No Ni Clinton, marketing compliance manager Healing General On track(12/03 9:18 AM [...] neuropathy weekly. ?? Refer to PCP and/or Assembler Garment Form, Vascular Specialist as indicated. ?? Monitor patient [...] Procedure Name Priority Date/Time Associated Diagnosis Comments LIPID PANEL REFLEX Routine 05/31/2023 9: 56 AM EDT Type 2 diabetes mellitus without complication, without long-term current use of insulin (HCC) HEMOGLOBIN A1C Routine 05/31/2023 9:56 AM EDT Type 2 diabetes mellitus without complication, without long-term current use of insulin (HCC) COMPREHENSIVE METABOLIC PANEL Routine 05/31/2023 9:56 AM EDT Type 2 diabetes mellitus without complication, without long-term current use of insulin (HCC) documented in this encounter Results * (ABNORMAL) COMPREHENSIVE METABOLIC PANEL (05/31/2023 9:56 AM EDT) Sodium 141 136 - 145 mmol/L 05/31/2023 2:48 PM EDT [facility] [employer], [facility] Potassium 4.2 3.5 - 5.0 mmol/L 05/31/2023 2:48 PM EDT [facility] Chloride 104 98 - 107 mmol/L 05/31/2023 2:48 PM EDT [facility], [facility] Total CO2 29 22 - 29 mmol/L 05/31/2023 2:48 PM EDT [facility], [facility] Anion Gap 8 7 - 16 mmol/L 05/31/2023 2:48 PM EDT [facility], [facility] Calcium 10.0 8.8 - 10.4 mg/dL 05/31/2023 2:48 PM EDT [facility], [facility] Glucose Lvl 126(H) 82 - 100 mg/dL 05/31/2023 2:48 PM EDT [facility] BUN 19 8 - 23 mg/dL 05/31/2023 2:48 PM EDT [facility], [facility] Creatinine 0.87 0.51 - 1.30 mg/dL 05/31/2023 2:48 PM EDT [facility] Albumin 4.0 3.2 - 4.6 gm/dL 05/31/2023 2:48 PM EDT [facility], [facility] Total Protein 7.2 6.4 - 8.3 gm/dL 05/31/2023 2:48 PM EDT [facility] Bili Total 0.2 0.2 - 1.3 mg/dL 05/31/2023 2:48 PM EDT [facility] ALT 16 <=41 U/L 05/31/2023 2:48 PM EDT [facility] AST 18 <=40 U/L 05/31/2023 2:48 PM EDT [facility], [facility] Alk Phos 71 36 - 123 U/L 05/31/2023 2:48 PM EDT [facility] eGFR (CKD-EPIcr 2020) 73 >=60 mL/min/1.7 3 m2 05/31/2023 2:48 PM EDT [facility] Comment:Estimated GFR was ca lculated using the CKD-EPIcr (2020) equation refit without race. The equation is recommended by the National Kidney Foundation - [employer] Society of Nephrology Task Force. Blood VENOUS BLOOD / Unknown Venipuncture / Unknown 05/31/2023 9:56 AM EDT 05/31/2023 9:56 AM EDT us Cristiane Shirley MD CHEMISTRY ORDERABLES Final Res ult [facility] [address] [facility], [place] [address] [facility] [address] [place] [address] * (ABNORMAL) LIPID PANEL REFLEX (05/31/2023 9:56 AM EDT) [facility] Signature Cholesterol 176 <200 mg/dL 05/31/2023 2:48 PM EDT [facility] Comment: < 200 ?Desirable 200 - 239 ? Borderline High >= 240 ?High Triglyceride 130 <150 mg/dL 05/31/2023 2:48 PM EDT [facility] Comment: < 150 ? Normal 150 - 199 ?Borderline High 200 - 499 ?High ??>= 500 ? Very High HDL 46 >=40 mg/dL 05/31/2023 2:48 PM EDT [facility] Comment: ??> 60 ?Optimal 40 - 60 ?Acceptable ?? < 40 ?Low LDL Calculated 107(H) <100 mg/dL 05/31/2023 2:48 PM EDT [facility] Non-HDL-C Calculated 130(H) <=129 mg/dL 05/31/2023 2:48 PM EDT [facility] [employer] Comment: <130 ?Desirable 130-159 Above Desirable 160-189 Borderline High 190-219 High >= 220 ??Very High Fasting Specimen? Unknown None 023 2:48 PM EDT [facility] Blood VENOUS BLOOD / Unknown Venipuncture / Unknown 05/31/2023 9:56 AM EDT 05/31/2023 9:56 AM EDT us Cristiane Shirley MD CHEMISTRY ORDERABLES Final Res ult Performing Organization Address [facility] Co de Phone Number [employer] [address] , [place] [address] [facility] [address] [place] [address] * (ABNORMAL) HEMOGLOBIN A1C (05/31/2023 9:56 AM EDT) Hgb A1C 6.0(H) 4.2 - 5.6 % 05/31/2023 7:37 PM EDT [facility] [employer] Est. Avg Glucose 126 mg/dL 05/31/2023 7:37 PM EDT [facility] [employer] Blood VENOUS BLOOD / Unknown Venipuncture / Unknown 05/31/2023 9:56 AM EDT 05/31/2023 9:56 AM EDT Narrative [facility] [employer] - 05/31/2023 7:37 PM EDT REFERENCE RANGE: Normal: 4.0-5.6% Pre-diabetes: 5.7-6.4% Provisional diagnosis of diabetes: >6.4% Hgb F>10% and anything which shortens red cell survival, such as hemolytic anemia, or unstable hemoglobin variants such as HbSS, HbSC, or HbCC, will lower the HbA1c value associated with a given level of glycemic control. ? us Cristiane Shirley MD CHEMISTRY ORDERABLES Final Res ult Performing Organization Address [facility] Co de Phone Number [employer] [facility] , [place] [address] documented in this encounter Visit Diagnoses Diagnosis Bilateral hip pain- Primary Pain in joint, pelvic region and thigh At risk for polypharmacy Type 2 diabetes mellitus without complication, without long-term current use of insulin (HCC) Immunization due Need for prophylactic vaccination and inoculation against unspecified single disease Need for Tdap vaccination Need for prophylactic vaccination with combined dkqgfrijdd-klpumch-ckxpofkoe (DTP) vaccine documented in this encounter Orders Immunization/Injection Count Last Ordered Date First Ordered Date PNEUMOCOCCAL CONJUGATE VACCI NE 20 VALENT IM 1 05/31/2023 QUADRIVALENT FLUZONE HIGH DOSE 1 05/31/2023 TDAP VACCINE =>7YO IM 1 05/31/2023 documented in this encounter Additional Health Concerns Assessment Noted Time A fall risk assessment has been complete d for the patient 07/27/2022 10:00 AM EST documented as of this encounter Care Teams Sys Dir Relationship Specialty Start Date End Date Cristiane Shirley MD [address] [place] [address] PCP - General Family Medicine 08/20/18 12/29/23 Garett Holt MD Internal Medicine-Gastroenterology 12/22/12 Ruiz Stokes MD [address] [place] [address] Internal Medicine-Cardiovascular Disease 07/25/14 Yenny Schwab MD 651 [facility] Building [address] [place] [address] Internal Medicine-Rheumatology 12/11/16 documented as of this encounter
--- OUTSIDE RECORDS SUMMARY | 2024-07-22 15:59 | XMS_ITS | Encounter Summary ---
Author Organization [place] [address] Care Team Providers Care Butter Wrapper Name Role Phone Garett Holt MD Unavailable [phone] Ruiz Stokes MD Unavailable [phone] Yenny Schwab MD Unavailable [phone] Cristiane Shirley MD Primary Care Provider Reason for Visit * Reason Onset Date Comments Paperwork/forms 07/07/2023 FMLA Encounter Details Date Type Department Care Team (Late st Contact Info) Description 07/07/2023 Telephone [facility] [address] [place] [address] Cristiane Shirley MD [address] [place] [address] Paperwork/forms ([facility] ) Social History Tobacco Use Types Packs/Day [...] Date Recorded PHQ-2 Total Score 0 12/21/2022 [facility] of Occupat ional Health - Occupational [...] of Assessment Author No 05/31/2023 9:02 AM EDLisa Boss MA * Because of a physical, mental [...] Telephone Encounter - Nathalie Lin - 07/08/2023 8:10 AM EDT Called Clementina back. No answer, went right to vmail. Stated that [facility] paperwork had been filled out and faxed to [employer] employee on 06/03/2023, it was a complete fax. This was faxed to the number given - [phone] Mailing [employer] a copy of this paperwork. IF SOMEONE CALLS BACK FOR ALYSSA: I can create work note they are asking for, but need some info - What where the dates needed on the letter? Do they want the letter mailed, sent to [employer], or are the going to pick it up? * Telephone Encounter - Anahi Redd MA - 07/07/2023 11:41 AM EDT Left message... need more information regarding this message. * Telephone Encounter - Castillo Marmolejo COA - 07/07/2023 10:58 AM EDT Select the most appropriate reason for this telephone message: Other Who is calling (name & relationship to patient if not the patient): daughter What is needed OR why are they calling: info When is this needed by: yodit Where does this information need to go: Additional information: * Telephone Encounter - Castillo Marmolejo COA - 07/07/2023 10:53 AM EDT Select the most appropriate reason for this telephone message: Forms/Paperwork What form needs to be filled out? FMLA Are you picking up in the office? fax If not picking up, how would you like to obtain (email is not an option due to patient security): Fax Is there any documentation required that the office may need to include? Previous appt dates and future appt dates Please inform patient - The office will advise if payment is required for paperwork. Pt daughter states pt's son (Janey Jamil : 10/05/93) was suppose to get update FMLA forms at last visit. Son needs those to give to his job. Daughter will call back with fax number. Also daughter ask if pt can be prescribed something for nausea? please advise documented in this encounter Plan of Treatment Upcoming Encounters Date Type Department Care Team (Late st Contact Info) Description 07/29/2024 9:00 AM EST Appointment [facility] [address] [place] [address] Jomar Kim MD [address] [place] [address] documented as of this encounter Goals Goal Patient Goal Type Associated Problems Recent Progress Patient-Stated? Author Blood Pressure < 140/90 Blood Pressure 110/72(04/09 2:44 PM EDT) Rachel Regan RMA BMI (Calculated) < 30 General 50.9(2023 [...] neuropathy weekly. ?? Refer to PCP and/or Assistant Vice President, Vascular Specialist as indicated. ?? Monitor patient compliance with wound care, diabetes management and proper offloading. Patients abdominal discomfort will improve or resolve by next follow up call from RN CC. General Not on track(03/09 11:41 AM EDT) No Joselyn Chance RN Stay Tobacco Free Lifestyle On track(02/07 10:23 AM EDT) No Wendy Epsinoza LPN HEMOGLOBIN A1C < 7.0 Result Component 5.6( 024 3:04 PM EST) No Rachel Rogers RMA documented as of this encounter Visit Diagnoses Not on filedocumented in this encounter Additional Health Concerns Assessment Noted Time A fall risk assessment has been complete d for the patient 07/27/2022 10:00 AM EST documented as of this encounter Care Teams Butter Wrapper Relationship Specialty Start Date End Date Cristiane Shirley MD [address] [place] [address] PCP - General Family Medicine 08/20/18 12/29/23 Garett Holt MD Internal Medicine-Gastroenterology 12/22/12 Ruiz Stokes MD [address] [place] [address] Internal Medicine-Cardiovascular Disease 07/25/14 Yenny Schwab MD [address] [facility] Building [address] [place], [place] [id number] Internal Medicine-Rheumatology 12/11/16 documented as of this encounter
--- OUTSIDE RECORDS SUMMARY | 2024-07-22 15:59 | XMS_ITS | Encounter Summary ---
Author Organization [place] [address] Care Team Providers Care Copy Center Specialist Name Role Phone Garett Holt MD Unavailable [phone] Ruiz Stokes MD Unavailable [phone] Yenny Schwab MD Unavailable [phone] Cristiane hSirley MD Primary Care Provider [phone] Reason for Visit * Reason Onset Date Comments Appointment Needed 07/11/2023 Encounter Details Date Type Department Care Team (Late st Contact Info) Description 07/11/2023 Telephone [facility] [address] [place] [address] Cristiane Shirley MD [address] [place], [place] [id number] Appointment Needed Social History Tobacco Use Types Packs/Day Years [...] Date Recorded PHQ-2 Total Score 0 12/21/2022 [facility] - Occupational Stress Questionnaire Answer Date [...] Telephone Encounter - Vicky Oliva MA - 07/11/2023 4:05 PM EDT Appt scheduled * Telephone Encounter - Elisa Brown - 07/11/2023 2:31 PM EDT Select the most appropriate reason for this telephone message: Appointment Needed Appointment Requested By: Patient Provider Preference: PCP Only Type of Appt Needed: Annual Physical Detailed Reason for Appt: 07/19/2023 10am - 12 noon Requested Timeframe: 07/19/2023 10am - 12 noon Reason Scheduling Assistance is Needed: -other chart states she does not need one until 06/27/24 but her appt on 06/27/23 was a hospital visit not an AWC Additional Notes: documented in this encounter Plan of Treatment Upcoming Encounters Date Type Department Care Team (Late st Contact Info) Description 07/29/2024 9:00 AM EST Appointment [facility] [address] [place] [address] Jomar Kim MD [address] [place] [address] documented as of this encounter Goals [...] neuropathy weekly. ?? Refer to PCP and/or Cycle Touring Guide, Vascular Specialist as indicated. ?? Monitor patient [...] documented as of this encounter Care Teams Copy Center Specialist Relationship Specialty Start Date End Date Cristiane Shirley MD [address] [place] [address] PCP - General Family Medicine 08/20/18 12/29/23 Garett Holt MD Internal Medicine-Gastroenterology 12/22/12 Ruiz Stokes MD [address] [place], [place] [id number] Internal Medicine-Cardiovascular Disease 07/25/14 Yenny Schwab MD 651 [facility] [address] [place] [address] Internal Medicine-Rheumatology 12/11/16 documented as of this encounter
--- OUTSIDE RECORDS SUMMARY | 2024-07-22 15:59 | XMS_ITS | Encounter Summary ---
Author Organization [place] [address] Care Team Providers Care Esthetician Spa Name Role Phone Garett Holt MD Unavailable [phone] Ruiz Stokes MD Unavailable [phone] Yenny Schwab MD Unavailable [phone] Cristiane Shirley MD Primary Care Provider Reason for Visit * Reason Comments Hospital Follow Up Encounter Details Date Type Department Care Team (Late st Contact Info) Description 06/27/2023 1:45 PM EDT Office Visit [facility] [address] [place] [address] Cristiane Shirley MD [address] [place] [address] Annual physical exam (Primary Dx); Type 2 diabetes mellitus without complication, without long-term current use of insulin (HCC); Essential hypertension; Severe diabetic hypoglycemia (HCC); Right hip pain Social History Tobacco Use Types [...] Reading Time Taken Comments Blood Pressure 112/64 06/27/2023 2:03 PM EDT Pulse 82 06/27/2023 2:03 PM EDT Temperature 36.7 ??C (98 ??F) 06/27/2023 2:03 PM EDT Respiratory Rate - - Oxygen Saturation 92% 06/27/2023 2:03 PM EDT Inhaled Oxygen Concentration - - Weight - - Height 162.6 cm (5' 4 ) 06/27/2023 2:03 PM EDT Body Mass Index - - documented in [...] Refills Last Filled Start Date End Date Blood-Glucose Sensor (DEXCOM G7 SENSOR) [facility] DeviceIndications: Type 2 diabetes mellitus without complication, without long-term current use of insulin (HCC),Severe diabetic hypoglycemia (HCC) 1 Each by [facility].(Non-Dr ug; Combo Route) route as needed. 1 Each 06/27/2023 Blood-Glucose Meter,Continuous (DEXCOM G7 SHAKE LOADER) [facility] MiscIndications:Ty pe 2 diabetes mellitus without complication, without long-term current use of insulin (HCC),Severe diabetic hypoglycemia (HCC) 1 Each by [facility].(Non-Dr ug; Combo Route) route as needed. 1 Each 06/27/2023 glucagon, human recombinant, (GLUCAGEN) 1 mg Inj Recon SolnIndications:Ty pe 2 diabetes mellitus without complication, without long-term current use of insulin (HCC),Severe diabetic hypoglycemia (HCC) Inject 1 mg into the muscle once for 1 dose. 1 Each 1 06/27/2023 06/27/2023 documented in this encounter Progress Notes * Cristiane Shirley MD - 06/27/2023 1:45 PM EDT Vitals: 06/27/23 1403 BP: 112/64 Pulse: 82 Temp: 98 ??F (36.7 ??C) TempSrc: Temporal SpO2: 92% Height: 5' 4 (1.626 m) SUBJECTIVE: Chief Complaint Patient presents with Hospital Follow Up HPI: Hospital Follow-Up: Hospital/ER Follow-Up: Ms. Jamil is a 68 y.o. female here for hospital follow up. She was admitted 06/20/23 and discharged 06/25/23 with a diagnosis of weakness, hypoglycemia. Went to [facility] She is compliant with discharge medications / treatment. She is not having medication side effects. Coding Attestation I certify the following are true: 1. Communication with the patient was made within 2 business days of discharge. 2. Medical decision making of medium complexity. 3. Face to face visit within 7 days. 4. Patient has been hospitalized within the last 30 days. Code Complexity Face to face 04032 High complexity within 7 days 24965 High complexity 8-14 days 42331 Medium complexity Within 14 days Review of Systems Constitutional: Negative. HENT: Negative. Respiratory: Negative for cough and wheezing. Cardiovascular: Negative. Gastrointestinal: Negative for abdominal pain and diarrhea. Genitourinary: Negative. Musculoskeletal: Positive for arthralgias. Skin: Negative. Psychiatric/Behavioral: Negative. OBJECTIVE: Physical Exam Vitals and nursing note reviewed. HENT: Head: Normocephalic. Cardiovascular: Rate and Rhythm: Normal rate. Heart sounds: No murmur heard. Pulmonary: Effort: Pulmonary effort is normal. Abdominal: Palpations: Abdomen is soft. Tenderness: There is no abdominal tenderness. Musculoskeletal: General: Tenderness present. Skin: General: Skin is warm. Neurological: General: No focal deficit present. Mental Status: She is alert. Psychiatric: Mood and Affect: Mood normal. Assessment Diagnoses and all orders for this visit: Annual physical exam Type 2 diabetes mellitus without complication, without long-term current use of insulin (HCC) (Chronic) - Blood-Glucose Meter,Continuous (DEXCOM G7 SHAKE LOADER) Misc Misc; 1 Each by Misc.(Non-Drug; Combo Route) route as needed. Dispense: 1 Each; Refill: 11 - Blood-Glucose Sensor (DEXCOM G7 SENSOR) Misc Device; 1 Each by Misc.(Non-Drug; Combo Route) routeas needed. Dispense: 1 Each; Refill: 11 - glucagon, human recombinant, (GLUCAGEN) 1 mg Inj Recon Soln; Inject 1 mg into the muscle once for1 dose. Dispense: 1 Each; Refill: 1 stable Essential hypertension Severe diabetic hypoglycemia (HCC) (Chronic) - Blood-Glucose Meter,Continuous (DEXCOM G7 SHAKE LOADER) Misc Misc; 1 Each by Misc.(Non-Drug; Combo Route) route as needed. Dispense: 1 Each; Refill: 11 - Blood-Glucose Sensor (DEXCOM G7 SENSOR) Misc Device; 1 Each by Misc.(Non-Drug; Combo Route) routeas needed. Dispense: 1 Each; Refill: 11 - glucagon, human recombinant, (GLUCAGEN) 1 mg Inj Recon Soln; Inject 1 mg into the muscle once for1 dose. Dispense: 1 Each; Refill: 1 stable Right hip pain - XR HIP RIGHT AP LATERAL W AP PELVIS; Future documented in this encounter Plan of Treatment Upcoming Encounters Date Type Department Care Team (Late st Contact Info) Description 07/29/2024 9:00 AM EST Appointment [facility] [address] [place] [address] Jomar Kim MD [address] [place] [address] documented as of this encounter Goals Goal Patient Goal Type Associated Problems Recent Progress Patient-Stated? Author Blood Pressure < 140/90 Blood Pressure 110/72(04/09 2:44 PM EDT) No Rachel Rogers, RMA BMI (Calculated) < 30 General 50.9(2023 2:44 PM EDT) No Rachel Rogers RMA Eat better, exercise, reach an ideal body weight General No Ni Clinton, media monitor Healing General On track(12/03 9:18 AM EDT) [...] neuropathy weekly. ?? Refer to PCP and/or Curriculum Specialist, Vascular Specialist as indicated. ?? Monitor [...] 024 3:04 PM EST) No Rachel Rogers, RMLeigh documented as of this encounter Results * XR HIP RIGHT AP LATERAL W AP PELVIS (07/05/2023 6:06 PM EDT) Anatomical Region Laterality Modality Hip Radiographic Faby ging 07/05/2023 6:06 PM EDT Impressions 07/05/2023 6:09 PM EDT No definite fracture. 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 If there continue to BE clinical symptoms CT or MRI would be more sensitive for occult fracture. - Note: Radiology results need to be interpreted within a comprehensive clinical context. ??If you have questions about the radiology report, please contact the office of the ordering clinician. Narrative 07/05/2023 6:09 PM EDT XR HIP RIGHT AP LATERAL W AP PELVIS, ??07/05/2023 6:06 PM CLINICAL HISTORY: ??M25.551-Pain in right [id number] COMPARISON: ??01/07/2023 PROCEDURE COMMENTS: ??AP view of the pelvis with AP and frog-leg views of the hip. FINDINGS: Bony structure of the pelvis and hips intact. No fracture or dislocation. 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 Procedure Note Heriberto Del Real MD - 07/05/2023 XR HIP RIGHT AP LATERAL W AP PELVIS, 07/05/2023 6:06 PM CLINICAL HISTORY: M25.551-Pain in right [id number] COMPARISON: 01/07/2023 PROCEDURE COMMENTS: AP view of the pelvis with AP and frog-leg views ofthe hip. FINDINGS: Bony structure of the pelvis and hips intact. No fracture ordislocation. End-stage osteoarthritis with probable osteonecrosis of the femoralhead. IMPRESSION: No definite fracture. 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 If there continue to BE clinical symptoms CT or MRIwould be more sensitive for occult fracture. - Note: Radiology results need to be interpreted within a comprehensiveclinical context. If you have questions about the radiology report, please contactthe office of the ordering clinician. Cristiane Shirley MD IMG DIAGNOSTIC IMAGING ORDERAB LES Final Result documented in this encounter Visit Diagnoses Diagnosis Annual physical exam- Primary Routine general medical examination at a health care facility Type 2 diabetes mellitus without complication, without long-term current use of insulin (HCC) Essential hypertension Unspecified essential hypertension Severe diabetic hypoglycemia (HCC) Type II or unspecified type diabetes mellitus with other specified manifestations, not stated as uncontrolled Right hip pain Pain in joint, pelvic region and thigh Right hip pain Pain in joint, pelvic region and thigh documented in this encounter Discontinued Medications Medication Sig Discontinue Reason Start Date End Da te metFORMIN (GLUCOPHAGE) 500 mg Oral Tablet Take 1 Tablet by mouth daily (with breakfast). Cancelled by 05/27/2023 06/27/2023 documented as of this encounter Historical Medications * This list may reflect changes made after this encounter. Medication Sig Dispense Quantity Refills Last Filled Start D ate End Date spironolactone (ALDACTONE) 25 mg Oral Tablet 06/25/2023 08/07/2023 pantoprazole (PROTONIX) 40 mg Oral Tablet, Delayed Release (E.C.) 06/25/2023 08/07/2023 JARDIANCE 10 mg Oral Tablet 06/25/2023 08/07/2023 lisinopriL (PRINIVIL;ZESTRIL) 10 mg Oral Tablet 06/25/2023 01/06/2024 added in this encounter Additional Health Concerns Assessment Noted Time A fall risk assessment has been complete d for the patient 07/27/2022 10:00 AM EST documented as of this encounter Care Teams Esthetician Spa Relationship Specialty Start Date End Date Cristiane Shirley MD [address] [place] [address] PCP - General Family Medicine 08/20/18 12/29/23 Garett Holt MD Internal Medicine-Gastroenterology 12/22/12 Ruiz Stokes MD [address] [place] [address] Internal Medicine-Cardiovascular Disease 07/25/14 Yenny Schwab MD [address] [facility] [address] [place] [address] Internal Medicine-Rheumatology 12/11/16 documented as of this encounter
--- OUTSIDE RECORDS SUMMARY | 2024-07-22 15:59 | XMS_ITS | Encounter Summary ---
Author Organization [place] [address] Care Team Providers Care Regional Cra Name Role Phone Garett Holt MD Unavailable [phone] Ruiz Stokes MD Unavailable [phone] Yenny Schwab MD Unavailable [phone] Cristiane Shirley MD Primary Care Provider [phone] Reason for Visit * Reason Onset Date Comments CM- Telephonic Outreach 05/22/2023 Encounter Details Date Type Department Care Team (Late st Contact Info) Description 05/22/2023 Patient Outreach SEP Care Managment [facility] Jacquelyn Espinal Mario. [address] [address] Juju Boyd, REGIONAL TRAINER CM- Telephonic Outreach Social History Tobacco Use Types Packs/Day Years [...] Date Recorded PHQ-2 Total Score 0 12/21/2022 [facility] - Occupational Stress Questionnaire Answer Date [...] of Assessment Author No 12/01/2021 10:24 AM EDRodolfo Mcknight MA * Is the [...] documented in this encounter Progress Notes * Juju Boyd LSW - 06/18/2023 4:05 PM EDT FINAL NOTE REGIONAL TRAINER was unable to provide services for the patient per referral request. At this time, vp digital marketing social media and crm is signing off and closing the referral. SUMMARY OF SERVICES PROVIDED Services provided to patient include: NA: Contact attempted, but unsuccessful Reason for Closure: Patient has not responded to contact. Referral will be closed at this time. * Juju Boyd LSW - 05/22/2023 1:45 PM EDT Referral Contact Attempted: REGIONAL TRAINER attempted to contact patient for referral follow up and patient didnot answer and HIPAA compliant message was left with return number of [phone]. Letter was sentto the patient via [employer]. If no contact is made within one week, REGIONAL TRAINER will close patient referral due to no contact. Length of Encounter: 0 - 5 minutes documented in this encounter Plan of Treatment Upcoming Encounters Date Type Department Care Team (Late st Contact Info) Description 07/29/2024 9:00 AM EST Appointment [facility] [address] [place] [address] Jomar Kim MD [address] [place] [address] documented as of this encounter Goals Goal Patient Goal Type Associated Problems Recent Progress Patient-Stated? Author Blood Pressure < 140/90 Blood Pressure 110/72(04/09 2:44 PM EDT) No Rachel Rogers, RMA BMI (Calculated) < 30 General 50.9(2023 2:44 PM EDT) No Rachel Rogers, RMA Eat better, exercise, reach an ideal body weight General No Ni Clinton, test boring crew chief Healing General On track(12/03 9:18 AM EDT) [...] neuropathy weekly. ?? Refer to PCP and/or Health And Wellness Manager, Vascular Specialist as indicated. ?? Monitor [...] Rogers, RMLeigh documented as of this encounter Visit Diagnoses Not on filedocumented in this encounter Additional Health Concerns Assessment Noted Time A fall risk assessment has been complete d for the patient 07/27/2022 10:00 AM EST documented as of this encounter Care Teams Regional Cra Relationship Specialty Start Date End Date Cristiane Shirley MD [address] [place] [address] PCP - General Family Medicine 08/20/18 12/29/23 Garett Holt MD Internal Medicine-Gastroenterology 12/22/12 Ruiz Stokes MD [address] [place] [address] Internal Medicine-Cardiovascular Disease 07/25/14 Yenny Schwab MD [address] [facility] Building [address] [place] [address] Internal Medicine-Rheumatology 12/11/16 documented as of this encounter
--- OUTSIDE RECORDS SUMMARY | 2024-07-22 15:59 | XMS_ITS | Encounter Summary ---
Author Organization [place] [address] Care Team Providers Care Acid Filler Name Role Phone Garett Holt MD Unavailable [phone] Ruiz Stokes MD Unavailable [phone] Yenny Schwab MD Unavailable [phone] Cristiane Shirley MD Primary Care Provider Reason for Visit * Reason Onset Date Comments Medication Refill 03/30/2023 Encounter Details Date Type Department Care Team (Late st Contact Info) Description 03/30/2023 Refill [facility] [address] [place] [address] Cristiane Shirley MD [address] [place] [address] Medication Refill Social History Tobacco Use Types [...] Date Recorded PHQ-2 Total Score 0 12/21/2022 [facility] - Occupational Stress Questionnaire Answer Date [...] of Assessment Author No 12/01/2021 10:24 AM EDRodlofo Mcknight MA * Is the person blind [...] Refills Last Filled Start Date End Date docusate sodium (COLACE) 100 mg Oral Capsule Take 1 Capsule by mouth 2 times daily. 60 Capsule 2 03/31/2023 documented in this encounter Plan of Treatment Upcoming Encounters Date Type Department Care Team (Late st Contact Info) Description 07/29/2024 9:00 AM EST Appointment [facility] [address] [place], [place] [id number] Jomar Kim MD [address] [place] [address] documented as of this encounter Goals Goal Patient Goal Type Associated Problems Recent Progress Patient-Stated? Author Blood Pressure < 140/90 Blood Pressure 110/72(04/09 2:44 PM EDT) No Rachel Rogers RMA BMI (Calculated) < 30 General 50.9(2023 2:44 PM EDT) No Rachel Rogers RMA Eat better, exercise, reach an ideal body weight General No Ni Clinton, marriage performer Healing General On track(12/03 9:18 AM EDT) [...] neuropathy weekly. ?? Refer to PCP and/or Keno Terminal Operator, Vascular Specialist as indicated. ?? Monitor [...] Discontinue Reason Start Date End Da te docusate sodium (COLACE) 100 mg Oral Capsule Take 1 Capsule by mouth 2 times daily. Reorder 03/03/2023 03/30/2023 documented as of this encounter Additional Health Concerns Assessment Noted Time A fall risk assessment has been complete d for the patient 07/27/2022 10:00 AM EST documented as of this encounter Care Teams Acid Filler Relationship Specialty Start Date End Date Cristiane Shirley MD [address] [place] [address] PCP - General Family Medicine 08/20/18 12/29/23 Garett Holt MD Internal Medicine-Gastroenterology 12/22/12 Ruiz Stokes MD [address] [place] [id number] Internal Medicine-Cardiovascular Disease 07/25/14 Yenny Schwab MD [address] [place] [address] Internal Medicine-Rheumatology 12/11/16 documented as of this encounter
--- OUTSIDE RECORDS SUMMARY | 2024-07-22 15:59 | XMS_ITS | Encounter Summary ---
Author [place] [address] Care Team Providers Care Medical Laboratory Technical Officer Name Role Phone Garett Holt MD Unavailable [phone] Ruiz Stokes MD Unavailable [phone] Yenny Schwab MD Unavailable [phone] Cristiane Shirley MD Primary Care Provider [phone] Reason for Referral * Consultation (Routine) - Closed Specialty Diagnoses / Procedures Referred By Contalissa t Referred To Contact Diagnoses Special screening for malignant neoplasms, colon Cristiane Shirley MD [address] [place] [address] Phone: tel: fax: SEP Care Managment [address] Appointment [place] [address] Phone: tel: Referral ID Status Reason Start Date Expiration Date Visits Re quested Visits Authorized [id number] Closed 05/22/2023 05/21/2024 99 99 Question Answer Reason for Referral Resource Coordination Comments pt requesting assistance to obtain a shower chair with a back- hers broke * GI Procedure (Routine) - Closed Specialty Diagnoses / Procedures Referred By Ron t Referred To Contact General Surgery Diagnoses Special screening for malignant neoplasms, colon Screening for malignant neoplasm of the rectum Cristiane Shirley MD [address] [place] [address] Phone: tel: fax: [facility] [address] [facility] [address] [place] [address] Phone: tel: fax: Referral ID Status Reason Start Date Expiration Date Visits Re quested Visits Authorized [id number] Closed 05/22/2023 05/21/2024 1 1 Reason for Visit * Reason Onset Date Comments Central Order Completion Outreach 05/22/2023 mammogram/dexa Encounter Details Date Type Department Care Team (Late st Contact Info) Description 05/22/2023 Patient Outreach SEP [facility] [address] [place], [place] [id number] Cristiane Shirley MD [address] [place], [place] [id number] Central Order Completion Outreach (mammogram/dexa) Social History [...] Date Recorded PHQ-2 Total Score 0 12/21/2022 [facility] [place] [facility] Occup[facility] - Occupational Stress [...] 12/01/2021 10:24 AM Rodolfo Dill MA * Because of [...] documented in this encounter Progress Notes * Jeanette Stover RN - 05/22/2023 10:47 AM EDT SEP Order Completion Outcome Tracking Contact Attempt:: Final Mammogram Outcome:: Screening Scheduled (07/05/2023 [facility]) DEXA Outcome:: Screening Scheduled (07/05/2023 [facility]) During Order Completion Outreach care gaps addressed are Annual Wellness Visit, Flu Shot, Medicare Questionnaire, Diabetic Labs, Colorectal Cancer Screening, and Care Management Referral. Medicare Questionnaire completed, Annual Wellness Visit Scheduled 07/12/2023 and flu shot added to apt notes, Care management referral placed, A1c Ordered, Lipid Panel with reflex ordered, CMP ordered, Patient is aware that lab work is ordered and educated on lab locations, and Referral to appropriate department placed and message routed to GI scheduling team for follow up. Colonoscopy Screening: Has the patient ever had a colonoscopy? yesIf so when and where: 02/17/2013 Dr Holt If the patient has been seen for an office visit or scope within the last 3 years the procedures should be scheduled with that same provider. Family hx of colon cancer or polyps? no If so who and what age: Preferred date, time, and physician for procedure: unsure Has the patient been fully vaccinated for COVID?yes Preferred time for COVID test:na Does the patient have kidney disease? no Pharmacy preference:[facility] Medications: Prior to Admission medications Medication Sig Start Date End Date Taking? Authorizing Provider albuterol (PROVENTIL) 2.5 mg /3 mL (0.083 %) Inhl Solution for Nebulization Take 3 mL by nebulization every 4 hours as needed for Wheezing. 02/24/21 Cristiane Shirley MD amLODIPine (NORVASC) 10 mg Oral Tablet Take 1 Tablet by mouth daily. 05/27/22 Cristiane Shirley MD aspirin 81 mg Oral Tablet, Delayed Release (E.C.) Take 1 Tablet by mouth daily. 02/10/23 Cristiane Shirley MD atorvastatin (LIPITOR) 20 mg Oral Tablet Take 1 Tablet by mouth daily. 03/03/23 Cristiane Shirley MD Blood Sugar Diagnostic [facility] Strip 1 Strip by [facility].(Non-Drug; Combo Route) route 2 times daily. Per formulary. Dx: E11.9 08/05/22 Doron Rojas APRN Blood-Glucose Meter [facility] Kit Per formulary. Dx. E11.9 08/05/22 Doron Rojas APRN CALCIUM ORAL Take 1 Tab by mouth daily. Provider, Historical cholecalciferol, vitamin D3, (VITAMIN D3) 25 mcg (1,000 unit) Oral Tablet Take 1 Tab by mouth daily. 09/14/19 Cristiane Shirley MD docusate sodium (COLACE) 100 mg Oral Capsule Take 1 Capsule by mouth 2 times daily. 03/31/23 Cristiane Shirley MD fluticasone propionate (FLONASE) 50 mcg/actuation Nasl [place], Suspension Use 1 spray(s) in each nostril once daily 10/17/22 Cristiane Shirley MD fUROsemide (LASIX) 40 mg Oral Tablet One tab daily and may take an extra if needed. 02/10/23 Cristiane Shirley MD Lancets [facility] 1 Each by [facility].(Non-Drug; Combo Route) route 2 times daily. Per formulary. Dx: E11.9 08/05/22 Doron Rojas APRN lisinopriL (PRINIVIL;ZESTRIL) 20 mg Oral Tablet tablet Take 1 Tablet by mouth daily. 02/10/23 Cristiane Shirley MD loratadine (CLARITIN) 10 mg Oral Tablet Take 1 tablet by mouth once daily 12/24/21 Cristiane Shirley MD metFORMIN (GLUCOPHAGE) 500 mg Oral Tablet Take 1 Tablet by mouth daily (with breakfast). 11/25/22 Cristiane Shirley MD Nebulizer Accessories [facility] Kit Nebulizer accessories 02/24/21 Cristiane Shirley MD olopatadine (PATANOL) 0.1 % Opht Drops Place 1 Drop into both eyes 2 times daily. Administer drops in both eyes. 07/27/22 Doron Rojas APRN ONETOUCH DELICA PLUS LANCET 33 gauge [facility] USE TO CHECK GLUCOSE TWICE DAILY 11/08/22 Provider, Mejia oxybutynin (DITROPAN-XL) 10 mg Oral Tablet Extended Rel 24 hr Take 1 Tablet by mouth daily. 12/06/21Cristiane Shirley MD tiZANidine (ZANAFLEX) 4 mg Oral Tablet Take 1 Tablet by mouth 3 times daily as needed. 01/10/23 Cristiane Shirley MD trospium (SANCTURA) 20 mg Oral Tablet Take 1 Tablet by mouth 2 times daily. 04/28/23 Lyssa Fang APRN Allergies: Allergies Allergen Reactions Spironolactone Nausea And Vomiting and Myalgia Amitriptyline Nausea And Vomiting Amoxil [Amoxicillin] Hives Clarithromycin hives Clindamycin Nausea Only Egg Nausea Only Naproxen Rash Nexium [Esomeprazole Magnesium] Hives and Rash Blisters in Mouth Any GI symptoms? yes If so please list: abdominal pain after eating Is the patient on O2? no Is patient on a blood thinner? noIf so who manages: Has the patient had a heart attack in the last 6 months or stroke in the last 12 months? no Does the patient have a mechanical heart valve?no Does the patient currently take a controlled substance?no Is the patient greater than 75 years old?no Patient weight? There is no height or weight on file to calculate BMI. Is the patient wheelchair dependant? no Is the insurance listed in [facility] current? yes documented in this encounter Miscellaneous Notes * Telephone Encounter - Isabel Owens ABR-OE - 05/22/2023 5:07 PM EDT Prep mailed * Telephone Encounter - Coco Arevalo Leigh - 05/22/2023 12:36 PM EDT The patient is scheduled for her Colonoscopy on 08-13-23 at 12:30 pm with [facility] at [facility]. Zeus Split sent to her pharmacy. Prep instructions need mailed. documented in this encounter Plan of Treatment Upcoming Encounters Date Type Department Care Team (Late st Contact Info) Description 07/29/2024 9:00 AM EST Appointment [facility] [address] [place] [address] Jomar Kim MD [address] [place] [address] Scheduled Referrals Name Type Priority Associated Diagnoses Order Schedule SCREENING COLONOSCOPY Outpatient Referral Routine Special screening for malignant neoplasms, colon Screening for malignant neoplasm of the rectum Ordered: 05/22/2023 AMB REFERRAL TO CARE MANAGEMENT Outpatient Referral Routine Special screening for malignant neoplasms, colon Ordered: 05/22/2023 documented as of this encounter Goals Goal Patient Goal Type Associated Problems Recent Progress Patient-Stated? Author Blood Pressure < 140/90 Blood Pressure 110/72(04/09 2:44 PM EDT) No Rachel Rogers RMA BMI (Calculated) < 30 General 50.9(2023 2:44 PM EDT) No Rachel Rogers RMA Eat better, exercise, reach an ideal body weight General No Ni Clinton, sports information director Healing General On track(12/03 9:18 AM [...] neuropathy weekly. ?? Refer to PCP and/or Electrical Continuity Inspector, Vascular Specialist as indicated. ?? Monitor [...] as of this encounter Results * (ABNORMAL) COMPREHENSIVE METABOLIC PANEL (05/31/2023 9:56 AM EDT) Sodium 141 136 - 145 mmol/L 05/31/2023 2:48 PM EDT [facility] Potassium 4.2 3.5 - 5.0 mmol/L 05/31/2023 2:48 PM EDT [facility] Chloride 104 98 - 107 mmol/L 05/31/2023 2:48 PM EDT [facility] Total CO2 29 22 - 29 mmol/L 05/31/2023 2:48 PM EDT [facility] Anion Gap 8 7 - 16 mmol/L 05/31/2023 2:48 PM EDT [facility] Calcium 10.0 8.8 - 10.4 mg/dL 05/31/2023 2:48 PM EDT [facility] Glucose Lvl 126(H) 82 - 100 mg/dL 05/31/2023 2:48 PM EDT [facility] BUN 19 8 - 23 mg/dL 05/31/2023 2:48 PM EDT [facility] Creatinine 0.87 0.51 - 1.30 mg/dL 05/31/2023 2:48 PM EDT [facility] Albumin 4.0 3.2 - 4.6 gm/dL 05/31/2023 2:48 PM EDT [facility] Total Protein 7.2 6.4 - 8.3 gm/dL 05/31/2023 2:48 PM EDT [facility] Bili Total 0.2 0.2 - 1.3 mg/dL 05/31/2023 2:48 PM EDT [facility] ALT 16 <=41 U/L 05/31/2023 2:48 PM EDT [facility] AST 18 <=40 U/L 05/31/2023 2:48 PM EDT [facility] Alk Phos 71 36 - 123 U/L 05/31/2023 2:48 PM EDT [facility] eGFR (CKD-EPIcr 2020) 73 >=60 mL/min/1.7 3 m2 05/31/2023 2:48 PM EDT [facility] Comment:Estimated GFR was ca lculated using the CKD-EPIcr (2020) equation refit without race. The equation is recommended by the National Kidney Foundation - [place] Society of Nephrology Task Force. Blood VENOUS BLOOD / Unknown Venipuncture / Unknown 05/31/2023 9:56 AM EDT 05/31/2023 9:56 AM EDT us Cristiane Shirley MD CHEMISTRY ORDERABLES Final Res ult [facility] [address] [facility], [place] [address] [facility] [address] [place] [address] * (ABNORMAL) LIPID PANEL REFLEX (05/31/2023 9:56 AM EDT) Cholesterol 176 <200 mg/dL 05/31/2023 2:48 PM EDT [facility] Comment: < 200 ?Desirable 200 - 239 ? Borderline High >= 240 ?High Triglyceride 130 <150 mg/dL 05/31/2023 2:48 PM EDT [facility] Comment: < 150 ? Normal 150 - 199 ?Borderline High 200 - 499 ?High ??>= 500 ? Very High HDL 46 >=40 mg/dL 05/31/2023 2:48 PM EDT [facility] Comment: ??> 60 ?Optimal 40 - 60 ?Acceptable ?? < 40 ?Low LDL Calculated 107(H) <100 mg/dL 05/31/2023 2:48 PM EDT [facility] Non-HDL-C Calculated 130(H) <=129 mg/dL 05/31/2023 2:48 PM EDT [facility] Comment: <130 ?Desirable 130-159 Above Desirable 160-189 Borderline High 190-219 High >= 220 ??Very High Fasting Specimen? Unknown None 023 2:48 PM EDT [facility] Blood VENOUS BLOOD / Unknown Venipuncture / Unknown 05/31/2023 9:56 AM EDT 05/31/2023 9:56 AM EDT us Cristiane Shirley MD CHEMISTRY ORDERABLES Final Res ult [facility] [address] [facility], [place] [address] [facility] [address] [place] [address] * (ABNORMAL) HEMOGLOBIN A1C (05/31/2023 9:56 AM EDT) [facility] Signature Hgb A1C 6.0(H) 4.2 - 5.6 % 05/31/2023 7:37 PM EDT [facility] Est. Avg Glucose 126 mg/dL 05/31/2023 7:37 PM EDT [facility] Blood VENOUS BLOOD / Unknown Venipuncture / Unknown 05/31/2023 9:56 AM EDT 05/31/2023 9:56 AM EDT Narrative [facility] [employer] - 05/31/2023 7:37 PM EDT REFERENCE RANGE: Normal: 4.0-5.6% Pre-diabetes: 5.7-6.4% Provisional diagnosis of diabetes: >6.4% Hgb F>10% and anything which shortens red cell survival, such as hemolytic anemia, or unstable hemoglobin variants such as HbSS, HbSC, or HbCC, will lower the HbA1c value associated with a given level of glycemic control. ? us Cristiane Shirley MD CHEMISTRY ORDERABLES Final Res ult [facility] [address] [place] [address] , [place] [address] documented in this encounter Visit Diagnoses Diagnosis Special screening for malignant neoplasms, colon- Primary Screening for malignant neoplasm of the rectum Type 2 diabetes mellitus without complication, without long-term current use of insulin (HCC) documented in this encounter Additional Health Concerns Assessment Noted Time A fall risk assessment has been complete d for the patient 07/27/2022 10:00 AM EST documented as of this encounter Care Teams Medical Laboratory Technical Officer Relationship Specialty Start Date End Date Cristiane Shirley MD [address] [place] [address] PCP - General Family Medicine 08/20/18 12/29/23 Garett Holt MD Internal Medicine-Gastroenterology 12/22/12 Ruiz Stokes MD [address] [place] [address] Internal Medicine-Cardiovascular Disease 07/25/14 Yenny Schwab MD [address] [facility] Building [address] [place] [address] Internal Medicine-Rheumatology 12/11/16 documented as of this encounter
--- OUTSIDE RECORDS SUMMARY | 2024-07-22 15:59 | XMS_ITS | Encounter Summary ---
Author Organization [place] [address] Care Team Providers Care Welding Foreman Name Role Phone Garett Holt MD Unavailable [phone] Ruiz Stokes MD Unavailable [phone] Yenny Schwab MD Unavailable [phone] Cristiane Shirley MD Primary Care Provider [phone] Reason for Visit * Reason Onset Date Comments Medication Problem 07/09/2023 Cost of Trosp ium Encounter Details Date Type Department Care Team (Late st Contact Info) Description 07/09/2023 Telephone [facility] Urogynecology [address] [address] Nino Johnson MA Medication Problem (Cost of Trospium) Social History Tobacco Use Types Packs/Day Years [...] Date Recorded PHQ-2 Total Score 0 12/21/[address] [facility] - Occupational Stress Questionnaire Answer [...] encounter Miscellaneous Notes * Telephone Encounter - Nino Johnson MA - 07/09/2023 10:17 AM EDT Pharmacy called stating Trospium has $47 co-pay and the pt cannot afford this and will not pick itup from the pharmacy . Pharmacy is requesting an alternative. I will update pt and have her call her insurance for a list of approved medications. documented in this encounter Plan of Treatment Upcoming Encounters Date Type Department Care Team (Late st Contact Info) Description 07/29/2024 9:00 AM EST Appointment [facility] [address] [place] [address] Jomar Kim MD [address] [place] [address] documented as of this encounter Goals Goal Patient Goal Type Associated Problems Recent Progress Patient-Stated? Author Blood Pressure < 140/90 Blood Pressure 110/72(04/09 2:44 PM EDT) No Rachel Rogers RMA BMI (Calculated) < 30 General 50.9(2023 2:44 PM EDT) No Rachel Rogers, MULU Eat better, exercise, reach an ideal body weight General No Ni Clinton, regulatory assistant Healing General On track(12/03 9:18 AM EDT) [...] neuropathy weekly. ?? Refer to PCP and/or Instructional Support Services Director, Vascular Specialist as indicated. ?? Monitor [...] documented as of this encounter Care Teams Welding Foreman Relationship Specialty Start Date End Date Cristiane Shirley MD [address] [place] [address] PCP - General Family Medicine 08/20/18 12/29/23 Garett Holt MD Internal Medicine-Gastroenterology 12/22/12 Ruiz Stokes MD [address] [place] [address] Internal Medicine-Cardiovascular Disease 07/25/14 Yenny Schwab MD [address] [place] [id number] Internal Medicine-Rheumatology 12/11/16 documented as of this encounter
--- OUTSIDE RECORDS SUMMARY | 2024-07-22 15:59 | XMS_ITS | Encounter Summary ---
Author Organization [place] [address] Care Team Providers Care Bit Sharpener Operator Name Role Phone Garett Holt MD Unavailable [phone] Ruiz Stokes MD Unavailable [phone] Yenny Schwab MD Unavailable [phone] Cristiane Shirley MD Primary Care Provider [phone] Reason for Visit * Reason Onset Date Comments Medication Management 06/20/2023 Clinical C ertified Administrative Representative: [facility] [phone] Encounter Details Date Type Department Care Team (Late st Contact Info) Description 06/20/2023 Patient Outreach [facility] [address] [place] [address] Katherine Rust CPhT Medication Management (Clinical Woodenware Assembler: egg pasteurizer [phone] ) Social History Tobacco Use Types Packs/Day [...] Date Recorded PHQ-2 Total Score 0 12/21/2022 [facility] - Occupational Stress Questionnaire Answer Date Recorded [...] documented in this encounter Progress Notes * Katherine Rust CPhT - 06/20/2023 12:15 PM EDT Ambulatory Pharmacy Outreach 06/20/2023 by Katherine Rust CPhT Patient Alyssa Jamil was contacted by Clinical Woodenware Assembler for WORK QUEUE REFERRAL. Clinical Administrative Representative outreaching to patient to attempt to reschedule missed referral appointment. No TIPS at this time This is the SECOND attempt to reach patient. egg pasteurizer unable to reach patient. egg pasteurizer left voice mail with call back number of [phone]. Next outreach by Clinical egg pasteurizer on or around 06/25 if applicable. Sent MyChart letter to inform patient that they are eligible to schedule an appointment with the Clinical Pharmacist. Katherine Rust CPhT documented in this encounter Plan of Treatment Upcoming Encounters Date Type Department Care Team (Late st Contact Info) Description 07/29/2024 9:00 AM EST Appointment [facility] [address] [place] [address] Jomar Kim MD [address] [place] [address] documented as of this encounter [...] neuropathy weekly. ?? Refer to PCP and/or Intake Assessor, Vascular Specialist as indicated. ?? Monitor patient [...] documented as of this encounter Care Teams Bit Sharpener Operator Relationship Specialty Start Date End Date Cristiane Shirley MD [address] [place] [address] PCP - General Family Medicine 08/20/18 12/29/23 Garett Holt MD Internal Medicine-Gastroenterology 12/22/12 Ruiz Stokes MD [address] [place] [address] Internal Medicine-Cardiovascular Disease 07/25/14 Yenny Schwab MD 6[address] [facility] [address] [place] [address] Internal Medicine-Rheumatology 12/11/16 documented as of this encounter
--- OUTSIDE RECORDS SUMMARY | 2024-07-22 15:59 | XMS_ITS | Encounter Summary ---
Author Organization [place] [address] Care Team Providers Care Wallpaper Embosser Helper Name Role Phone Garett Holt MD Unavailable Ruiz Stokes MD Unavailable [phone] Yenny Schwab MD Unavailable [phone] Cristiane Shirley MD Primary Care Provider [phone] Reason for Referral * Consultation (Routine) - Closed Specialty Diagnoses / Procedures Referred By Contalissa t Referred To Contact Diagnoses Arthritis of right knee Cristiane Shirley MD [address] [place] [address] Phone: tel: fax: Referral ID Status Reason Start Date Expiration Date Visits Re quested Visits Authorized [id number] Closed 07/08/2023 07/07/2024 99 99 Encounter Details Date Type Department Care Team (Late st Contact Info) Description 07/08/2023 Orders Only [facility] [address] [place] [phone] Fide Moffett RMA 19 [facility] [address] [place] [address] Arthritis of right knee (Primary Dx) Social History Tobacco Use Types [...] 9:00 AM EST Appointment [facility] [address] [place] [address] Jomar Kim MD [address] [place] [address] Scheduled Referrals Name Type Priority Associated Diagnoses Order Schedule AMB REFERRAL TO ORTHOPEDIC SURGERY Outpatient Referral Routine Arthritis of right knee Ordered: 07/08/2023 documented as of this encounter Goals Goal [...] neuropathy weekly. ?? Refer to PCP and/or Knuckler, Vascular Specialist as indicated. ?? Monitor patient [...] documented as of this encounter Care Teams Wallpaper Embosser Helper Relationship Specialty Start Date End Date Cristiane Shirley MD [address] [place] [address] PCP - General Family Medicine 08/20/18 12/29/23 Garett Holt MD Internal Medicine-Gastroenterology 12/22/12 Ruiz Stokes MD [address] [place] [address] Internal Medicine-Cardiovascular Disease 07/25/14 Yenny Schwab MD [address] [facility] Building [address] [place] [address] Internal Medicine-Rheumatology 12/11/16 documented as of this encounter
--- OUTSIDE RECORDS SUMMARY | 2024-07-22 15:59 | XMS_ITS | Encounter Summary ---
Author Organization [place] [address] Care Team Providers Care High Pressure Kettle Operator Name Role Phone Garett Holt MD Unavailable [phone] Ruiz Stokes MD Unavailable [phone] Yenny Schwab MD Unavailable [phone] Cristiane Shirley MD Primary Care Provider [phone] Reason for Visit * Reason Onset Date Comments Medication Management 06/05/2023 Clinical C ertified Investment Sales Assistant: construction coordinator [phone] Encounter Details Date Type Department Care Team (Late st Contact Info) Description 06/05/2023 Patient Outreach [facility] [address] [place] [address] Jarred Ochoa CPhT Medication Management (Clinical Bundler: construction coordinator [phone] ) Social History Tobacco Use Types Packs/Day [...] Date Recorded PHQ-2 Total Score 0 12/21/2022 [facility] - Occupational Stress Questionnaire Answer [...] Notes * Jarred Ochoa CPhT - 06/05/2023 11:53 AM EDT Ambulatory Pharmacy Outreach 06/05/2023 by Jarred Ochoa CPhT Patient Alyssa Jamil was contacted by Clinical Bundler for WORK QUEUE REFERRAL. Clinical Investment Sales Assistant outreaching to patient to attempt to schedule pharmacist appointment from referral. No TIPS at this time This is the FIRST attempt to reach patient. Spoke to alban who is on [facility] phone disconnected Jarred Ochoa CPhT documented in this encounter Plan of Treatment Upcoming Encounters Date Type Department Care Team (Late st Contact Info) Description 07/29/2024 9:00 AM EST Appointment [facility] [address] [place] [address] Jomar Kim MD [address] [place] [address] documented as of this encounter [...] neuropathy weekly. ?? Refer to PCP and/or Tap Dancer, Vascular Specialist as indicated. ?? Monitor patient [...] documented as of this encounter Care Teams High Pressure Kettle Operator Relationship Specialty Start Date End Date Cristiane Shirley MD [address] [place] [address] PCP - General Family Medicine 08/20/18 12/29/23 Garett Holt MD Internal Medicine-Gastroenterology 12/22/12 Ruiz Stokes MD [address] [id number] Internal Medicine-Cardiovascular Disease 07/25/14 Yenny Schwab MD [address] [facility] [address] [place] [address] Internal Medicine-Rheumatology 12/11/16 documented as of this encounter
--- OUTSIDE RECORDS SUMMARY | 2024-07-22 15:59 | XMS_ITS | Encounter Summary ---
Author Organization [place] [address] Care Team Providers Care Director Intelligence Analysis Programs Name Role Phone Garett Holt MD Unavailable [phone] Ruiz Stokes MD Unavailable [phone] Yenny Schwab MD Unavailable [phone] Cristiane Shirley MD Primary Care Provider Reason for Visit * Reason Onset Date Comments Medication Refill 03/03/2023 Encounter Details Date Type Department Care Team (Late st Contact Info) Description 03/03/2023 Refill [facility] [address] [place] [address] Cristiane Shirley MD [address] [place] [address] Medication Refill Social History Tobacco Use Types [...] Date Recorded PHQ-2 Total Score 0 12/21/2022 [facility] - Occupational Stress Questionnaire Answer Date [...] Entry Date Author No 12/01/2021 10:24 AM EDRodolfo Mcknight MA documented in this encounter Ordered Prescriptions Prescription Sig Dispense Quantity Refills Last Filled Start Date End Date atorvastatin (LIPITOR) 20 mg Oral Tablet Take 1 Tablet by mouth daily. 30 Tablet 2 03/03/2023 3 docusate sodium (COLACE) 100 mg Oral Capsule Take 1 Capsule by mouth 2 times daily. 60 Capsule 2 03/03/2023 3 documented in this encounter Plan of Treatment Upcoming Encounters Date Type Department Care Team (Late st Contact Info) Description 07/29/2024 9:00 AM EST Appointment [facility] [address] [place] [address] Jomar Kim MD [address] [place] [address] documented as of this encounter Goals Goal Patient Goal Type Associated Problems Recent Progress Patient-Stated? 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 ?? Refer to PCP and/or Performance Makeup Artist, Vascular Specialist as indicated. ?? Monitor patient [...] Capsule by mouth 2 times daily. Reorder 11/25/2022 03/03/2023 atorvastatin (LIPITOR) 20 mg Oral Tablet Take 1 Tablet by mouth daily. Reorder 02/10/2023 03/03/2023 documented as of this encounter Additional Health Concerns Assessment Noted Time A fall risk assessment has been complete d for the patient 07/27/2022 10:00 AM EST documented as of this encounter Care Teams Director Intelligence Analysis Programs Relationship Specialty Start Date End Date Cristiane Shirley MD [address] [place] [address] PCP - General Family Medicine 08/20/18 12/29/23 Garett Holt MD Internal Medicine-Gastroenterology 12/22/12 Ruiz Stokes MD [address] [place] [id number] Internal Medicine-Cardiovascular Disease 07/25/14 Yenny Schwab MD 651 [facility] [address] [place] [address] Internal Medicine-Rheumatology 12/11/16 documented as of this encounter
--- OUTSIDE RECORDS SUMMARY | 2024-07-22 15:59 | XMS_ITS | Encounter Summary ---
Author Organization [place] [address] Care Team Providers Care Clinical Nurse Name Role Phone Garett Holt MD Unavailable [phone] Ruiz Stokes MD Unavailable [phone] Yenny Schwab MD Unavailable [phone] Cristiane Shirley MD Primary Care Provider Reason for Visit * Reason Onset Date Comments Medication Refill 05/27/2023 Encounter Details Date Type Department Care Team (Late st Contact Info) Description 05/27/2023 Refill [facility] [address] [place] [address] Cristiane Shirley MD [address] [place] [address] Medication Refill Social History Tobacco Use Types [...] Score 0 12/21/2022 [facility] - Occupational Stress Questionnaire Answer [...] by mouth daily. 30 Tablet 2 05/27/2023 02/23/2024 lisinopriL (PRINIVIL;ZESTRIL) 20 mg Oral Tablet tabletIndications: Essential hypertension Take 1 Tablet by mouth daily. 90 Tablet 1 05/27/2023 07/19/2023 fUROsemide (LASIX) 40 mg Oral TabletIndications: Lower extremity edema,Venous stasis dermatitis of left lower extremity One tab daily and may take an extra if needed. 60 Tablet 2 05/27/2023 12/15/2023 metFORMIN (GLUCOPHAGE) 500 mg Oral Tablet Take 1 Tablet by mouth daily (with breakfast). 90 Tablet 05/27/2023 06/27/2023 documented in this encounter Plan of Treatment Upcoming Encounters Date Type Department Care Team (Late st Contact Info) Description 07/29/2024 9:00 AM EST Appointment [facility] [address] [place] [address] Jomar Kim MD [address] [place] [address] documented as of this encounter [...] neuropathy weekly. ?? Refer to PCP and/or Glass Handler, Vascular Specialist as indicated. ?? Monitor patient [...] Venous stasis dermatitis of left lower extremity Essential hypertension Unspecified essential hypertension documented in this encounter Discontinued Medications Medication Sig Discontinue Reason Start Date End Da te metFORMIN (GLUCOPHAGE) 500 mg Oral Tablet Take 1 Tablet by mouth daily (with breakfast). Reorder 11/25/2022 05/27/2023 fUROsemide (LASIX) 40 mg Oral TabletIndications:Lower extremity edema,Venous stasis dermatitis of left lower extremity One tab daily and may take an extra if needed. Reorder 02/10/2023 05/27/2023 lisinopriL (PRINIVIL;ZESTRIL) 20 mg Oral Tablet tabletIndications:Essenti al hypertension Take 1 Tablet by mouth daily. Reorder 02/10/2023 05/27/2023 atorvastatin (LIPITOR) 20 mg Oral Tablet Take 1 Tablet by mouth daily. Reorder 03/03/2023 05/27/2023 documented as of this encounter Additional Health Concerns Assessment Noted Time A fall risk assessment has been complete d for the patient 07/27/2022 10:00 AM EST documented as of this encounter Care Teams Clinical Nurse Relationship Specialty Start Date End Date Cristiane Shirley MD [address] [place], [place] [id number] PCP - General Family Medicine 08/20/18 12/29/23 Garett Holt MD Internal Medicine-Gastroenterology 12/22/12 Ruiz Stokes MD [address] [place] [address] Internal Medicine-Cardiovascular Disease 07/25/14 Yenny Schwab MD 651 [facility] Building [address] [place], [place] [id number] Internal Medicine-Rheumatology 12/11/16 documented as of this encounter
--- OUTSIDE RECORDS SUMMARY | 2024-07-22 15:59 | XMS_ITS | Encounter Summary ---
Author Organization [place] [address] Care Team Providers Care Mineral Technologist Name Role Phone Garett Holt MD Unavailable [phone] Ruiz Stokes MD Unavailable [phone] Yenny Schwab MD Unavailable [phone] Cristiane Shirley MD Primary Care Provider [phone] Encounter Details Date Type Department Care Team (Latest Contact Info) Description 07/05/2023 5:28 PM EDT - 07/05/2023 11:59 PM EDT Hospital Encounter [facility] [address] [place] [address] Right hip pain Discharge Disposition: Home or Self Care [...] 0 12/21/2022 [facility] of Occupat ional [facility] - Occupational Stress Questionnaire [...] encounter Medications at Time of Discharge albuterol (PROVENTIL) 2.5 mg /3 mL (0.083 %) Inhl Solution for NebulizationIndic ations:Acute bronchitis, unspecified organism Take 3 mL by nebulization every 4 hours as needed for Wheezing. 1 box 6 02/24/2021 aspirin 81 mg Oral Tablet, Delayed Release (E.C.) Take 1 Tablet by mouth daily. 90 Tablet 2 02/10/2023 Blood Sugar Diagnostic [facility] StripIndications: Type 2 diabetes mellitus without complication, without long-term current use of insulin (HCC) 1 Strip by [facility].(Non-Drug; Combo Route) route 2 times daily. Per formulary. Dx: E11.9 100 Each 11 08/05/2022 Blood-Glucose Meter [facility] KitIndications:Ty pe 2 diabetes mellitus without complication, without long-term current use of insulin (HCC) Per formulary. Dx. E11.9 1 Kit 08/05/2022 Blood-Glucose Meter,Continuous (DEXCOM G7 TOP CAGER) [facility] MiscIndications:T ype 2 diabetes mellitus without complication, without long-term current use of insulin (HCC),Severe diabetic hypoglycemia (HCC) 1 Each by [facility].(Non-Drug; Combo Route) route as needed. 1 Each 06/27/2023 Blood-Glucose Sensor (DEXCOM G7 SENSOR) [facility] DeviceIndications :Type 2 diabetes mellitus without complication, without long-term current use of insulin (HCC),Severe diabetic hypoglycemia (HCC) 1 Each by [facility].(Non-Drug; Combo Route) route as needed. 1 Each 11 06/27/2023 CALCIUM ORAL Take 1 Tab by mouth daily. cholecalciferol, vitamin D3, (VITAMIN D3) 25 mcg (1,000 unit) Oral Tablet Take 1 Tab by mouth daily. 30 Tab 11 09/14/2019 docusate sodium (COLACE) 100 mg Oral Capsule Take 1 Capsule by mouth 2 times daily. 60 Capsule 2 03/31/2023 fluticasone propionate (FLONASE) 50 mcg/actuation Nasl [place], SuspensionIndicat ions:ETD (Eustachian tube dysfunction), right Use 1 spray(s) in each nostril once daily 16 g 10/17/2022 Lancets [facility] MiscIndications:T ype 2 diabetes mellitus without complication, without long-term current use of insulin (HCC) 1 Each by [facility].(Non-Drug; Combo Route) route 2 times daily. Per formulary. Dx: E11.9 100 Each 11 08/05/2022 loratadine (CLARITIN) 10 mg Oral TabletIndications :Seasonal allergic rhinitis due to pollen Take 1 tablet by mouth once daily 63 Tablet 12/24/2021 Nebulizer Accessories [facility] KitIndications:Ac [place] bronchitis, unspecified organism Nebulizer accessories 1 Kit 02/24/2021 olopatadine (PATANOL) 0.1 % Opht DropsIndications: Allergic conjunctivitis, bilateral Place 1 Drop into both eyes 2 times daily. Administer drops in both eyes. 5 mL 07/27/2022 ONETOUCH DELICA PLUS LANCET 33 gauge [facility] USE TO CHECK GLUCOSE TWICE DAILY [...] by mouth daily. 30 Tablet 2 05/27/2023 06/17/202 4 fUROsemide (LASIX) 40 mg Oral TabletIndications :Lower extremity edema,Venous stasis dermatitis of left lower extremity One tab daily and may take an extra if needed. 60 Tablet 2 05/27/2023 4 documented as of this encounter Discharge Disposition Disposition Code Departure Means Destination Home or Self Care documented in this encounter Plan of Treatment Upcoming Encounters Date Type Department Care Team (Late st Contact Info) Description 07/29/2024 9:00 AM EST Appointment [facility] [address] [place], [place] [id number] Jomar Kim MD [address] [place] [address] documented as of this encounter Goals Goal Patient Goal Type Associated Problems Recent Progress Patient-Stated? Author Blood Pressure < 140/90 Blood Pressure 110/72(04/09 2:44 PM EDT) No Rachel Rogers RMA BMI (Calculated) < 30 General 50.9(2023 2:44 PM EDT) No Rachel Rogers RMA Eat better, exercise, reach an ideal body weight General No Ni Clinton, sash installer Healing General On track(12/03 9:18 AM [...] neuropathy weekly. ?? Refer to PCP and/or Retail Pos Specialist, Vascular Specialist as indicated. ?? Monitor [...] Name Priority Date/Time Associated Diagnosis Comments XR HIP RIGHT AP LATERAL W AP PELVIS Routine 07/05/2023 6:06 PM EDT Right hip pain documented in this encounter Results * XR HIP RIGHT [...] 6:06 PM CLINICAL HISTORY: ??M25.551-Pain in right [id number] COMPARISON: ??01/07/2023 PROCEDURE COMMENTS: ??AP view of the pelvis with AP and frog-leg views of the hip. FINDINGS: Bony structure of the pelvis and hips intact. No fracture or dislocation. 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 Procedure Note Heriberto Del Real MD - 07/05/2023 XR HIP RIGHT AP LATERAL W AP PELVIS, 07/05/2023 6:06 PM CLINICAL HISTORY: M25.551-Pain in right [id number] COMPARISON: 01/07/2023 PROCEDURE COMMENTS: AP view of [...] contactthe office of the ordering clinician. us Cristiane Shirley MD IMG DIAGNOSTIC IMAGING ORDERAB LES Final Result documented in this encounter Visit Diagnoses Diagnosis Right hip pain Pain in joint, pelvic region and thigh documented in this encounter Additional Health Concerns Assessment Noted Time A fall risk assessment has been complete d for the patient 07/27/2022 10:00 AM EST documented as of this encounter Care Teams Mineral Technologist Relationship Specialty Start Date End Date Cristiane Shirley MD [address] [place] [address] PCP - General Family Medicine 08/20/18 12/29/23 Garett Holt MD Internal Medicine-Gastroenterology 12/22/12 Ruiz Stokes MD [address] [place] [address] Internal Medicine-Cardiovascular Disease 07/25/14 Yenny Schwab MD [address] [address] Internal Medicine-Rheumatology 12/11/16 documented as of this encounter
--- OUTSIDE RECORDS SUMMARY | 2024-07-22 16:00 | XMS_ITS | Encounter Summary ---
Author Organization [place] [address] Care Team Providers Care Ecotherapist Name Role Phone Garett Holt MD Unavailable [phone] Ruiz Stokes MD Unavailable [phone] Yenny Schwab MD Unavailable [phone] Cristiane Shirley MD Primary Care Provider [phone] Reason for Referral * Vascular Imaging (Emergency) - Closed Specialty Diagnoses / Procedures Referred By Ron bansal Referred To Contact Radiology Diagnoses Right leg swelling Procedures WA US LOWER EXTREMITY VENOUS RIGHT Cristiane Shirley MD [address] [place] [address] Phone: tel: fax: [facility] [address] [place] [address] Phone: tel: Referral ID Status Reason Start Date Expiration Date Visits Re quested Visits Authorized [id number] Closed 01/10/2023 01/10/2025 1 1 Reason for Visit * Vascular Imaging (Emergency) - Closed Specialty Diagnoses / Procedures Referred By Contac t Referred To Contact Radiology Diagnoses Right leg swelling Procedures [facility] LOWER EXTREMITY VENOUS RIGHT Cristiane Shirley MD [address] [place] [address] Phone: tel: fax: [facility] [address] [place] [address] Phone: tel: Referral ID Status Reason Start Date Expiration Date Visits Re quested Visits Authorized [id number] Closed 01/10/2023 01/10/2025 1 1 Encounter Details Date Type Department Care Team (Late st Contact Info) Description 01/10/2023 12:54 PM EDT Hospital Encounter [facility] [address] [place] [address] Cristiane Shirley MD [address] [place] [address] Right leg swelling Discharge Disposition: Home or Self Care Social History Tobacco Use Types Packs/Day Years Used Date Smoking Tobacco: Former Cigarettes 1.5 13 0 09/08/1971 - 09/07/1984 Passive Smoke Exposure: Current Smokeless Tobacco: Never Alcohol Use Standard Drinks/Week Comments No 0 (1 standard drink = 0.6 oz pur e alcohol) Overall Financial Resource Strain ([facility]) Answe r Date Recorded How hard is it for you to pa y for the very basics like food, housing, medical care, and heating? Not very hard 02/07/2021 PHQ-2 Answer Date Recorded PHQ-2 Total Score 0 12/21/2022 [facility] of Occupat ional Health - Occupational Stress [...] file Not on file Not on file COVID-19 Exposure Response Date Recorded In the last 10 days, have yo u been in contact with someone who was confirmed or suspected to have Coronavirus/COVID-19? No / Unsure 01/10/2023 12:52 PM EDT documented as of this encounter Functional Status [...] 12/01/2021 10:24 AM EDRodolfo Mcknight MA * Because of a physical, mental or emotional condition, does this person have difficulty doing errands alone such as visiting a doctor's office or shopping? Answer Date of Assessment Author No 12/01/2021 10:24 AM EDRodolfo Mcknight MA documented as of this encounter Mental Status * Because of a physical, mental or emotional condition, does this person have serious difficulty concentrating, remembering or making decisions? Answer Entry Date Author No 12/01/2021 10:24 AM Rodolfo Dill MA documented in this encounter Medications at Time of Discharge albuterol (PROVENTIL) 2.5 mg /3 mL (0.083 %) Inhl Solution for NebulizationIndica tions:Acute bronchitis, unspecified organism Take 3 mL by nebulization every 4 hours as needed for Wheezing. 1 box 6 02/24/2021 Blood Sugar Diagnostic [facility] StripIndications:T ype 2 diabetes mellitus without complication, without long-term current use of insulin ([facility]) 1 Strip by [facility].(Non-Drug; Combo Route) route 2 times daily. Per formulary. Dx: E11.9 100 Each 11 08/05/2022 Blood-Glucose Meter [facility] KitIndications:Typ e 2 diabetes mellitus without complication, without long-term current use of insulin ([facility]) Per formulary. Dx. E11.9 1 Kit 08/05/2022 CALCIUM ORAL Take 1 Tab by mouth daily. cholecalciferol, vitamin D3, (VITAMIN D3) 25 mcg (1,000 unit) Oral Tablet Take 1 Tab by mouth daily. 30 Tab 11 09/14/2019 fluticasone propionate (FLONASE) 50 mcg/actuation Nasl [place], SuspensionIndicati ons:ETD (Eustachian tube dysfunction), right Use 1 spray(s) in each nostril once daily 16 g 10/17/2022 Lancets [facility] MiscIndications:Ty pe 2 diabetes mellitus without complication, without long-term current use of insulin ([facility]) 1 Each by [facility].(Non-Drug; Combo Route) route 2 times daily. Per formulary. Dx: E11.9 100 Each 11 08/05/2022 loratadine (CLARITIN) 10 mg Oral TabletIndications: Seasonal allergic rhinitis due to pollen Take 1 tablet by mouth once daily 63 Tablet 12/24/2021 Nebulizer Accessories [facility] KitIndications:Acu te bronchitis, unspecified organism Nebulizer accessories 1 Kit 02/24/2021 olopatadine (PATANOL) 0.1 % Opht DropsIndications:A llergic conjunctivitis, bilateral Place 1 Drop into both eyes 2 times daily. Administer drops in both eyes. 5 mL 07/27/2022 ONETOUCH DELICA PLUS LANCET 33 gauge Misc Misc USE TO CHECK GLUCOSE TWICE DAILY 11/08/2022 oxybutynin (DITROPAN-XL) 10 mg Oral Tablet Extended Rel 24 hr Take 1 Tablet by mouth daily. 90 Tablet 2 12/06/2021 tiZANidine (ZANAFLEX) 4 mg Oral TabletIndications: Muscle spasm Take 1 Tablet by mouth 3 times daily as needed. 30 Tablet 01/10/2023 atorvastatin (LIPITOR) 20 mg Oral Tablet Take 1 Tablet by mouth daily. 90 Tablet 2 04/29/2022 02/06/20 cephALEXin (KEFLEX) 500 mg Oral CapsuleIndications :UTI (urinary tract infection), uncomplicated Take 1 Capsule by mouth every 8 hours for 10 days. 30 Capsule 01/10/2023 01/21/20 documented as of this encounter Discharge Disposition Disposition Code Departure Means Destination Home or Self Care documented in this encounter Plan of Treatment Upcoming Encounters Date Type Department Care Team (Late st Contact Info) Description 07/29/2024 9:00 AM EST Appointment [facility] [address] [place], [place] [id number] Jomar Kim MD [address] [place] [address] documented as of this encounter [...] neuropathy weekly. ?? Refer to PCP and/or Agency Service Coordinator, Vascular Specialist as indicated. ?? Monitor [...] Procedure Name Priority Date/Time Associated Diagnosis Comments [facility] LOWER EXTREMITY VENOUS RIGHT STAT 01/10/2023 1:45 PM EDT Right leg swelling documented in this encounter Results * [facility] LOWER EXTREMITY VENOUS RIGHT (01/10/2023 1:45 PM EDT) Anatomical Region Laterality Modality Vascular, Thigh, Leg Electrocard iography 01/10/2023 1:19 PM EDT Impressions 01/10/2023 2:00 PM EDT Conclusions ??* No evidence of deep vein thrombosis identified in the right lower extremity. ??* No evidence of superficial vein thrombosis identified in the right lower extremity. ??* No evidence of thrombosis is noted in the contralateral left common femoral vein. ??* Normal Doppler characteristics of spontaneous, phasic flow and augmentation to distal compression are demonstrated throughout the deep venous system of the right lower extremity. Narrative Procedure Note Christofer Yarbrough MD - 01/10/2023 IMPRESSION Conclusions * No evidence of deep vein thrombosis identified in the right lower extremity. * No evidence of superficial vein thrombosis identified in the rightlower extremity. * No evidence of thrombosis is noted in the contralateral left common femoral vein. * Normal Doppler characteristics of spontaneous, phasic flow and augmentation to distal compression are demonstrated throughout the deepvenous system of the right lower extremity. us Cristiane Shirley MD IMG VASCULAR ORDERABLES Final Result documented in this encounter Visit Diagnoses Diagnosis Right leg swelling documented in this encounter Additional Health Concerns Assessment Noted Time A fall risk assessment has been complete d for the patient 07/27/2022 10:00 AM EST documented as of this encounter Care Teams Ecotherapist Relationship Specialty Start Date End Date Cristiane Shirley MD [address] [place], [place] [id number] PCP - General Family Medicine 08/20/18 12/29/23 Garett Holt MD Internal Medicine-Gastroenterology 12/22/12 Ruiz Stokes MD [address] [place] [address] Internal Medicine-Cardiovascular Disease 07/25/14 Yenny Schwab MD [address] [facility] [address] [place], [place] [id number] Internal Medicine-Rheumatology 12/11/16 documented as of this encounter
--- OUTSIDE RECORDS SUMMARY | 2024-07-22 16:00 | XMS_ITS | Encounter Summary ---
Author Organization [place] [address] Care Team Providers Care Eradicator Name Role Phone Garett Holt MD Unavailable [phone] Ruiz Stokes MD Unavailable [phone] Yenny Schwab MD Unavailable [phone] Cristiane Shirley MD Primary Care Provider [phone] Angelina Thomas BS, COS Unavailable Unavail able Reason for Visit * Reason Onset Date Comments Referral 02/06/2023 Encounter Details Date Type Department Care Team (Late st Contact Info) Description 02/06/2023 Patient Outreach [facility] [address] [place] [address] Omaira Wilder, BS, COS Referral Social History Tobacco Use Types [...] Date Recorded PHQ-2 Total Score 0 12/21/2022 [facility]at [facility] - Occupational Stress Questionnaire Answer Date Recorded [...] documented in this encounter Progress Notes * Omaira Wilder BS, PERICO - 02/06/2023 10:08 AM EDT Education Program Coordinator Management Referral Request Referral received from: Nathalie Lockwood Referral note: Transportation Pt needs transportation assistance to consider mammo- Agreed to CM referral Assigned to: PERICO Thompson documented in this encounter Plan of Treatment Upcoming Encounters Date Type Department Care Team (Late st Contact Info) Description 07/29/2024 9:00 AM EST Appointment [facility] [address] [place] [address] Jomar Kim MD [address] [place] [address] documented as of this encounter Goals Goal [...] neuropathy weekly. ?? Refer to PCP and/or Online Merchandiser, Vascular Specialist as indicated. ?? Monitor patient [...] documented as of this encounter Care Teams Eradicator Relationship Specialty Start Date End Date Cristiane Shirley MD [address] [place] [address] PCP - General Family Medicine 08/20/18 12/29/23 Garett Holt MD Internal Medicine-Gastroenter ology 12/22/12 Ruiz Stokes MD [address] [place] [address] Internal Medicine-Cardiovascu lar Disease 07/25/14 Yenny Schwab MD [address] [facility] Building [address] [place] [address] Internal Medicine-Rheumatolog y 12/11/16 Angelina Thomas BS, COS Case Family Support Worker 02/06/23 02/26/23 documented as of this encounter
--- OUTSIDE RECORDS SUMMARY | 2024-07-22 16:00 | XMS_ITS | Encounter Summary ---
Author Organization [place] [address] Care Team Providers Care Case Management Manager Name Role Phone Garett Holt MD Unavailable [phone] Ruiz Stokes MD Unavailable [phone] Yenny Schwab MD Unavailable [phone] Cristiane Shirley MD Primary Care Provider [phone] Reason for Referral * DEXA (Routine) - Closed Specialty Diagnoses / Procedures Referred By Contalissa t Referred To Contact Radiology Diagnoses Post-menopausal Procedures DX BONE DENSITY AXIAL SKELETON Cristiane Shirley MD [address] [place] [address] Phone: tel: fax: [facility] DEXA [address] [place] [address] Phone: tel: Referral ID Status Reason Start Date Expiration Date Visits Re quested Visits Authorized [id number] Closed 01/10/2023 01/10/2024 1 1 Encounter Details Date Type Department Care Team (Late st Contact Info) Description 01/10/2023 Orders Only [facility] [address] [place] [address] Ana Paula Skelton MA Screening for osteoporosis (Primary Dx); Post-menopausal Social History Tobacco Use Types Packs/Day Years [...] Date Recorded PHQ-2 Total Score 0 12/21/2022 [facility] of Occupat ional Health - Occupational Stress [...] Recorded In the last 10 days, have marcie castro been in contact with someone who was [...] [place] [address] Jomar Kim MD [address] [place] [address] Scheduled Orders Name Type Priority Associated Diagnoses Orde r Schedule DX BONE DENSITY AXIAL SKELETON Imaging Routine Post-menopausal 1 Occurrences starting 01/10/2023 until 01/11/2024 documented as of this encounter Goals Goal [...] neuropathy weekly. ?? Refer to PCP and/or Meeting/Event Planner, Vascular Specialist as indicated. ?? Monitor patient [...] this encounter Visit Diagnoses Diagnosis Screening for osteoporosis- Primary Special screening for osteoporosis Post-menopausal Asymptomatic postmenopausal status (age-related) (natural) documented in this encounter Additional Health Concerns Assessment Noted Time A fall risk assessment has been complete d for the patient 07/27/2022 10:00 AM EST documented as of this encounter Care Teams Case Management Manager Relationship Specialty Start Date End Date Cristiane Shirley MD [address] [place] [address] PCP - General Family Medicine 08/20/18 12/29/23 Garett Holt MD Internal Medicine-Gastroenterology 12/22/12 Ruiz Stokes MD [address] [place] [address] Internal Medicine-Cardiovascular Disease 07/25/14 Yenny Schwab MD [address] [facility] Building [address] [place] [address] Internal Medicine-Rheumatology 12/11/16 documented as of this encounter
--- OUTSIDE RECORDS SUMMARY | 2024-07-22 16:00 | XMS_ITS | Encounter Summary ---
Author Organization [place] [address] Care Team Providers Care Palliative Nurse Name Role Phone Garett Holt MD Unavailable [phone] Ruiz Stokes MD Unavailable Yenny Schwab MD Unavailable [phone] Cristiane Shirley MD Primary Care Provider Angelina Thomas BS, COS Unavailable Unavail able Reason for Visit * Reason Onset Date Comments Medication Refill 02/10/2023 Encounter Details Date Type Department Care Team (Late st Contact Info) Description 02/10/2023 Refill [facility] [address] [place] [address] Cristiane Shirley MD [address] [place] [address] Medication Refill Social History Tobacco Use Types [...] 12/01/2021 10:24 AM EDRodolfo Mcknight MA * Does this person have serious difficulty walking or climbing stairs? Answer Date of Assessment Author Yes 12/01/2021 10:24 AM EDRodolfo Mcknight MA * Does this person have difficulty [...] Refills Last Filled Start Date End Date aspirin 81 mg Oral Tablet, Delayed Release (E.C.) Take 1 Tablet by mouth daily. 90 Tablet 2 02/10/2023 atorvastatin (LIPITOR) 20 mg Oral Tablet Take 1 Tablet by mouth daily. 30 Tablet 2 02/10/2023 03/03/2023 lisinopriL (PRINIVIL;ZESTRIL) 20 mg Oral Tablet tabletIndications: Essential hypertension Take 1 Tablet by mouth daily. 90 Tablet 1 02/10/2023 05/27/2023 fUROsemide (LASIX) 40 mg Oral TabletIndications: Lower extremity edema,Venous stasis dermatitis of left lower extremity One tab daily and may take an extra if needed. 60 Tablet 2 02/10/2023 05/27/2023 documented in this encounter Plan of Treatment Upcoming Encounters Date Type Department Care Team (Late st Contact Info) Description 07/29/2024 9:00 AM EST Appointment [facility] [address] [place] [address] Jomar Kim MD [address] [place] [address] documented as of this encounter Goals Goal Patient Goal Type Associated Problems Recent Progress Patient-Stated? Author Blood Pressure < 140/90 Blood Pressure 110/72(04/09 2:44 PM EDT) No Rachel [place] RMA BMI (Calculated) < 30 General 50.9(2023 2:44 PM EDT) No Rachel [place] RMA Eat better, exercise, reach an ideal body weight General No Ni Clinton shaping machine tender Healing General On track(12/03 9:18 AM [...] weekly. ?? Refer to PCP and/or Custom Marine Canvas Fabricator, Vascular Specialist as indicated. ?? Monitor patient [...] Discontinue Reason Start Date End Da te aspirin 81 mg Oral Tablet, Delayed Release (E.C.) Take 1 tablet by mouth once daily Reorder 11/11/2022 02/10/2023 fUROsemide (LASIX) 40 mg Oral TabletIndications:Lower extremity edema,Venous stasis dermatitis of left lower extremity One tab daily and may take an extra if needed. Reorder 11/25/2022 02/10/2023 lisinopriL (PRINIVIL;ZESTRIL) 20 mg Oral Tablet tabletIndications:Essenti al hypertension Take 1 Tablet by mouth daily. Reorder 11/25/2022 02/10/2023 atorvastatin (LIPITOR) 20 mg Oral Tablet Take 1 tablet by mouth once daily Reorder 02/05/2023 02/10/2023 documented as of this encounter Additional Health Concerns Assessment Noted Time A fall risk assessment has been complete d for the patient 07/27/2022 10:00 AM EST documented as of this encounter Care Teams Palliative Nurse Relationship Specialty Start Date End Date Cristiane Shirley MD [address] [place], [place] [id number] PCP - General Family Medicine 08/20/18 12/29/23 Garett Holt MD Internal Medicine-Gastroenter ology 12/22/12 Ruiz [place] MD [address] [place] [address] Internal Medicine-Cardiovascu lar Disease 07/25/14 Yenny Schwab MD [address]51 [facility] Building [address] [place] [address] Internal Medicine-Rheumatolog y 12/11/16 Angelina Thomas BS, COS Case Hotbed Operator 02/06/23 02/26/23 documented as of this encounter
--- OUTSIDE RECORDS SUMMARY | 2024-07-22 16:00 | XMS_ITS | Encounter Summary ---
Author Organization [facility] [place] [address] Care Team Providers Care Inspector Machine Parts Name Role Phone Garett Holt MD Unavailable [phone] Ruiz Stokes MD Unavailable [phone] Yenny Schwab MD Unavailable [phone] Cristiane Shirley MD Primary Care Provider [phone] Encounter Details Date Type Department Care Team (Latest Contact Info) Description 01/10/2023 Travel Social History Tobacco Use Types Packs/Day [...] Date Recorded PHQ-2 Total Score 0 12/21/2022 [facility] of Occupat ional Health - Occupational Stress [...] 9:00 AM EST Appointment [facility] [address] [place], [place] [id number] Jomar Kim MD [address] [place] [address] documented as of this encounter Goals Goal Patient Goal Type Associated Problems Recent Progress Patient-Stated? Author Blood Pressure < 140/90 Blood Pressure 110/72(04/09 2:44 PM EDT) No Rachel [place] RMA BMI (Calculated) < 30 General 50.9(2023 2:44 PM EDT) No Rachel [place] RMA Eat better, exercise, reach an ideal body weight General No Ni Clinton, harness fitter Healing General On track(12/03 9:18 AM EDT) [...] neuropathy weekly. ?? Refer to PCP and/or Local Tanker Truck Driver, Vascular Specialist as indicated. ?? [...] as of this encounter Care Teams Inspector Machine Parts Relationship Specialty Start Date End Date Cristiane Shirley MD [address] [place] [address] PCP - General Family Medicine 08/20/18 12/29/23 Garett Holt MD Internal Medicine-Gastroenterology 12/22/12 Ruiz [place] MD [address] [place] [address] Internal Medicine-Cardiovascular Disease 07/25/14 Yenny Schwab MD [address] [address] Internal Medicine-Rheumatology 12/11/16 documented as of this encounter
--- OUTSIDE RECORDS SUMMARY | 2024-07-22 16:00 | XMS_ITS | Encounter Summary ---
Author Organization [place] [address] Care Team Providers Care Certified Phlebotomy Technician Name Role Phone Garett Holt MD Unavailable [phone] Ruiz Stokes MD Unavailable [phone] Yenny Schwab MD Unavailable [phone] Cristiane Shirley MD Primary Care Provider [phone] Angelina Thomas BS, COS Unavailable Unavail able Reason for Visit * Reason Onset Date Comments Transportation 02/21/2023 Encounter Details Date Type Department Care Team (Late st Contact Info) Description 02/21/2023 Patient Outreach [facility] [address] [place] [id number] Angelina Thomas, BS, COS Transportation Social History Tobacco Use Types Packs/Day Years [...] Date Recorded PHQ-2 Total Score 0 12/21/2022 [facility] - Occupational Stress Questionnaire Answer [...] documented in this encounter Progress Notes * Angelina Thomas BS, COS - 02/21/2023 10:40 AM EDT Patient Outreach Attempted to contact patient regarding transportation Outcome: Patient did not answer No voicemail available / voicemail full Case Maintenance Planning Clerk will no longer follow patient for transportation &/or social determinate of health resources. If additional resources are needed, please submit a new AMB Care Management referral for assistance. documented in this encounter Plan of Treatment Upcoming Encounters Date Type Department Care Team (Late st Contact Info) Description 07/29/2024 9:00 AM EST Appointment [facility] [address] [place] [address] Jomar Kim MD [address] [place] [address] documented as of this encounter Goals Goal Patient Goal Type Associated Problems Recent Progress Patient-Stated? Author Blood Pressure < 140/90 Blood Pressure 110/72(04/09 2:44 PM EDT) No Rachel [place] RMA BMI (Calculated) < 30 General 50.9(2023 2:44 PM EDT) No Rachel [place] RMA Eat better, exercise, reach an ideal body weight General No Ni Clinton, bacon stringer Healing General On track(12/03 9:18 AM EDT) [...] neuropathy weekly. ?? Refer to PCP and/or Separator Inserter, Vascular Specialist as indicated. ?? Monitor patient [...] documented as of this encounter Care Teams Certified Phlebotomy Technician Relationship Specialty Start Date End Date Cristiane Shirley MD [address] [place] [address] PCP - General Family Medicine 08/20/18 12/29/23 Garett Holt MD Internal Medicine-Gastroenter ology 12/22/12 Ruiz Stokes MD [address] [place] [address] Internal Medicine-Cardiovascu lar Disease 07/25/14 Yenny Schwab MD [address] [facility] Building [address] [place] [address] Internal Medicine-Rheumatolog y 12/11/16 Angelina Thomas, BS, COS Case Maintenance Planning Clerk 02/06/23 02/26/23 documented as of this encounter
--- OUTSIDE RECORDS SUMMARY | 2024-07-22 16:00 | XMS_ITS | Encounter Summary ---
Author Organization [place] [address] Care Team Providers Care Stator Connector Name Role Phone Garett Holt MD Unavailable [phone] Ruiz Stokes MD Unavailable [phone] Yenny Schwab MD Unavailable [phone] Cristiane Shirley MD Primary Care Provider [phone] Reason for Referral * Vascular Imaging (Emergency) - Closed Specialty Diagnoses / Procedures Referred By Contac t Referred To Contact Radiology Diagnoses Right leg swelling Procedures [facility] LOWER EXTREMITY VENOUS RIGHT Cristiane Shirley MD [address] [place] [address] Phone: tel: fax: [facility] [address] [place] [address] Phone: tel: Referral ID Status Reason Start Date Expiration Date Visits Re quested Visits Authorized [id number] Closed 01/10/2023 01/10/2025 1 1 Reason for Visit * Reason Comments Leg Swelling And pain Diabetes Abdominal Pain Neck Pain Encounter Details Date Type Department Care Team (Late st Contact Info) Description 01/10/2023 11:15 AM EDT [facility] Visit [facility] [address] [address] Cristiane Shirley MD [address] [address] Right leg swelling (Primary Dx); Muscle spasm; UTI (urinary tract infection), uncomplicated; Right hip pain; Encounter for screening mammogram for breast cancer; Type 2 diabetes mellitus without complication, without [...] Date Recorded PHQ-2 Total Score 0 12/21/2022 [facility] [place] of Occupat ional Health - Occupational Stress [...] PM EDT documented as of this encounter Last Filed Vital Signs Vital Sign Reading Time Taken Comments Blood Pressure 116/64 01/10/2023 10:58 AM EDT Pulse - - Temperature 36.7 ??C (98 ??F) 01/10/2023 10:58 AM EDT Respiratory Rate - - Oxygen Saturation - - Inhaled Oxygen Concentration - - Weight 110.2 kg (243 lb) 01/10/2023 10:58 AM EDT Height 162.6 cm (5' 4 ) 01/10/2023 10:58 AM EDT Body Mass Index 41.71 01/10/2023 10:58 AM EDT documented in this [...] Refills Last Filled Start Date End Date tiZANidine (ZANAFLEX) 4 mg Oral TabletIndications:M uscle spasm Take 1 Tablet by mouth 3 times daily as needed. 30 Tablet 01/10/2023 cephALEXin (KEFLEX) 500 mg Oral CapsuleIndications: UTI (urinary tract infection), uncomplicated Take 1 Capsule by mouth every 8 hours for 10 days. 30 Capsule 01/10/2023 3 documented in this encounter Progress Notes * Cristiane Shirley MD - 01/10/2023 11:15 AM EDT Vitals: 01/10/23 1058 BP: 116/64 Temp: 98 ??F (36.7 ??C) Weight: 243 lb (110.2 kg) Height: 5' 4 (1.626 m) SUBJECTIVE: Chief Complaint Patient presents with Leg Swelling And pain Diabetes Abdominal Pain Neck Pain HPI: Diabetes: Alyssa following up today for diabetes. Current symptoms/problems include none. Current monitoring regimen: home blood tests - daily Home blood sugar records: trend: stable Any episodes of hypoglycemia? no On insulin? No Weight trend: Body mass index is 41.71 kg/m??. Wt Readings from Last 3 Encounters: 01/10/23 243 lb (110.2 kg) 01/09/23 243 lb (110.2 kg) 12/21/22 243 lb (110.2 kg) A1c trend: Lab Results Component Value Date HGBA1C 6.1 (H) 07/27/2022 HGBA1C 5.6 02/24/2021 HGBA1C 5.6 05/25/2020 Renal trend: Lab Results Component Value Date GFRAFRAM 96 02/24/2021 GFRAFRAM 104 05/18/2020 GFRAFRAM 113 04/27/2020 Lab Results Component Value Date GFRNONAFRAM 83 02/24/2021 GFRNONAFRAM 90 05/18/2020 GFRNONAFRAM 98 04/27/2020 Lab Results Component Value Date GFRCKDEPI 80 07/27/2022 GFRCKDEPI 96 11/24/2021 Lipid trend: Lab Results Component Value Date LDLCALC 83 07/27/2022 Leg Swelling This is a new problem. The current episode started in the past 7 days. The problem occurs constantly. The problem has been unchanged. Associated symptoms include abdominal pain, arthralgias and neck pain. Pertinent negatives include no coughing. Diabetes She presents for her follow-up diabetic visit. She has type 2 diabetes mellitus. Her disease coursehas been stable. Abdominal Pain This is a new problem. The current episode started in the past 7 days. The problem occurs constantly. Associated symptoms include arthralgias, dysuria and frequency. Neck Pain This is a new problem. The current episode started in the past 7 days. The problem occurs constantly. The problem has been unchanged. Pt is here today for leg swelling and pain, belly pain and neck pain Review of Systems Constitutional: Negative. HENT: Negative. Respiratory: Negative for cough and wheezing. Cardiovascular: Positive for leg swelling. Gastrointestinal: Positive for abdominal pain. Genitourinary: Positive for dysuria, frequency and urgency. Musculoskeletal: Positive for arthralgias and neck pain. Neurological: Negative. Hematological: Negative. Psychiatric/Behavioral: Negative. OBJECTIVE: Physical Exam Vitals and nursing note reviewed. HENT: Head: Normocephalic. Cardiovascular: Rate and Rhythm: Normal rate. Heart sounds: No murmur heard. Pulmonary: Effort: Pulmonary effort is normal. Breath sounds: No wheezing. Abdominal: Palpations: Abdomen is soft. Tenderness: There is no abdominal tenderness. Musculoskeletal: General: Swelling and tenderness present. Neurological: General: No focal deficit present. Mental Status: She is alert. Psychiatric: Mood and Affect: Mood normal. Assessment Diagnoses and all orders for this visit: Right leg swelling - [facility] US LOWER EXTREMITY VENOUS RIGHT; Future Muscle spasm Comments: -Concern for electrolyte imbalance with diuretic use. Will have previously ordered labs completed today. Orders: - tiZANidine (ZANAFLEX) 4 mg Oral Tablet; Take 1 Tablet by mouth 3 times daily as needed. Dispense:30 Tablet; Refill: 0 UTI (urinary tract infection), uncomplicated - SEP URINALYSIS POC - cephALEXin (KEFLEX) 500 mg Oral Capsule; Take 1 Capsule by mouth every 8 hours for 10 days. Dispense: 30 Capsule; Refill: 0 Right hip pain - XR HIP RIGHT AP LATERAL W AP PELVIS; Future Encounter for screening mammogram for breast cancer - MM MAMMO DIGITAL SHILO SCREEN BILAT; Future Type 2 diabetes mellitus without complication, without long-term current use of insulin (HCC) (Chronic) - POCT URINE MICROALBUMIN documented in this encounter Plan of Treatment Upcoming Encounters Date Type Department Care Team (Late st Contact Info) Description 07/29/2024 9:00 AM EST Appointment [facility] [address] [place] [address] Jomar Kim MD [address] [place] [address] documented as of this encounter Goals Goal Patient Goal Type Associated Problems Recent Progress Patient-Stated? Author Blood Pressure < 140/90 Blood Pressure 110/72(04/09 2:44 PM EDT) No Rachel Rogers RMA BMI (Calculated) < 30 General 50.9(2023 2:44 PM EDT) No Rachel Rogers RMA Eat better, exercise, reach an ideal body weight General No Ni [place], crystal cutter Healing General On track(12/03 9:18 AM [...] neuropathy weekly. ?? Refer to PCP and/or Rv Parts And Service Director, Vascular Specialist as indicated. ?? Monitor [...] Name Priority Date/Time Associated Diagnosis Comments POCT URINE MICROALBUMIN Routine 01/10/2023 11:22 AM EDT Type 2 diabetes mellitus without complication, without long-term current use of insulin (HCC) SEP URINALYSIS POC Routine 01/10/2023 11 :20 AM EDT UTI (urinary tract infection), uncomplicated documented in this encounter Results * [facility] LOWER EXTREMITY VENOUS RIGHT (01/10/2023 1:45 PM [...] of the right lower extremity. us Cristiane CHATTERJEE VASCULAR ORDERABLES Final Result * XR HIP RIGHT AP LATERAL W AP PELVIS (01/10/2023 1:18 PM EDT) Anatomical Region Laterality Modality Hip Radiographic Faby ging 01/10/2023 1:18 PM EDT Impressions 01/10/2023 1:28 PM EDT No acute abnormality of the hip or pelvis. - Note: Radiology results need to be interpreted within a comprehensive clinical context. ??If you have questions about the radiology report, please contact the office of the ordering clinician. Narrative 01/10/2023 1:28 PM EDT XR HIP RIGHT AP LATERAL W AP PELVIS, ??01/10/2023 1:18 PM CLINICAL HISTORY: ??M25.551-Pain in right [id number] COMPARISON: ??None. PROCEDURE COMMENTS: ??AP view of the pelvis with AP and frog-leg views of the hip. FINDINGS: No acute fracture or dislocation. Severe narrowing of the right hip joint with subchondral cystic change and marginal spurring. Moderate to severe degenerative changes left hip. Procedure Note Perla Schroeder MD - 01/10/2023 XR HIP RIGHT AP LATERAL W AP PELVIS, 01/10/2023 1:18 PM CLINICAL HISTORY: M25.551-Pain in right [id number] COMPARISON: None. PROCEDURE COMMENTS: AP view of the pelvis with AP and frog-leg views ofthe hip. FINDINGS: No acute fracture or dislocation. Severe narrowing of the right hip jointwith subchondral cystic change and marginal spurring. Moderate to severe degenerative changes left hip. IMPRESSION: No acute abnormality of the hip or pelvis. - Note: Radiology results need to be interpreted within a comprehensiveclinical context. If you have questions about the radiology report, please contactthe office of the ordering clinician. us Cristiane Shirley MD IMG DIAGNOSTIC IMAGING ORDERAB LES Final Result * POCT URINE MICROALBUMIN (01/10/2023 11:22 AM EDT) Microalb, Ur 10 mg/L 01/10/2023 11:25 AM EDT [facility] Creatinine Urine 100 mg/dL 01/10/2023 11:25 AM EDT [facility] Microalb/Completions Engineer. Ratio <30 <30 mg/g 01/10/2023 11:25 AM EDT [facility] Urine URINE SPECIMEN COLLECTION / Unknown 01/10/2023 11:22 AM EDT 01/10/2023 11:25 AM EDT us Cristiane Shirley MD POINT OF CARE TEST [place] [address] * (ABNORMAL) SEP URINALYSIS POC (01/10/2023 11:20 AM EDT) UA Color POC Yellow Color 01/10/2023 11:23 AM EDT [facility] UA Appear POC Clear Clear 01/10/2023 11:23 AM EDT [facility] UA Gluc POC Negative Negative mg/dL 01/10/2023 11:23 AM EDT [facility] UA Bili POC Negative Negative 01/10/2023 11:23 AM EDT [facility] UA Ketones POC Negative Negative mg/dL 01/10/2023 11:23 AM EDT [facility] UA SG POC 1.025 1.001 - 1.035 no units 01/10/2023 11:23 AM EDT [facility] UA Blood POC Trace-Intact (A) Negative 01/10/2023 11:23 AM EDT [facility] UA pH POC 7.0 5.0 - 8.0 pH 01/10/2023 11:23 AM EDT [facility] UA Protein POC Negative Negative mg/dL 01/10/2023 11:23 AM EDT [facility] UA Urobilinogen POC 0.2 0.2, 1.0 01/10/2023 11:23 AM EDT [facility] UA Nitrite POC Negative Negative 01/10/2023 11:23 AM EDT [facility] UA Leuk Est POC Negative Negative 11:23 AM EDT [facility] Urine URINE SPECIMEN COLLECTION / Unknown 01/10/2023 11:20 AM EDT 01/10/2023 11:23 AM EDT Cristiane Shirley MD POINT OF CARE TEST ORDERABLES Final Result Performing Organization Address City/State/[facility] Co de Phone Number [address] [address] documented in this encounter Visit Diagnoses Diagnosis Right leg swelling- Primary Muscle spasm Spasm of muscle UTI (urinary tract infection), uncomplicated Urinary tract infection, site not specified Right hip pain Pain in joint, pelvic region and thigh Encounter for screening mammogram for breast cancer Type 2 diabetes mellitus without complication, without long-term current use of insulin ([facility]) Right leg swelling Foot pain, right Pain in limb Right hip pain Pain in joint, pelvic region and thigh documented in this encounter Discontinued Medications Medication Sig Discontinue Reason Start Date End Da te tiZANidine (ZANAFLEX) 4 mg Oral TabletIndications:Muscle spasm Take 1 Tablet by mouth 3 times daily as needed. Reorder 07/27/2022 01/10/2023 documented as of this encounter Additional Health Concerns Assessment Noted Time A fall risk assessment has been complete d for the patient 07/27/2022 10:00 AM EST documented as of this encounter Care Teams Stator Connector Relationship Specialty Start Date End Date Cristiane Shirley MD [address] [place] [address] PCP - General Family Medicine 08/20/18 12/29/23 Garett Holt MD Internal Medicine-Gastroenterology 12/22/12 Ruiz Stokes MD [address] [place] [address] Internal Medicine-Cardiovascular Disease 07/25/14 Yenny Schwab MD [address] [place] [address] Internal Medicine-Rheumatology 12/11/16 documented as of this encounter
--- OUTSIDE RECORDS SUMMARY | 2024-07-22 16:00 | XMS_ITS | Encounter Summary ---
Author Organization [place] [address] Care Team Providers Care Timber Sprinkler Name Role Phone Garett Holt MD Unavailable [phone] Ruiz Stokes MD Unavailable [phone] Yenny Schwab MD Unavailable [phone] Cristiane Shirley MD Primary Care Provider [phone] Angelina Thomas BS, COS Unavailable Unavail able Reason for Referral * Consultation (Routine) - Closed Specialty Diagnoses / Procedures Referred By Contalissa t Referred To Contact Diagnoses Temporal arteritis (HCC) Cristiane Shirley MD [address] [place] [address] Phone: tel: fax: [facility] [phone] [place] [address] Phone: tel: Referral ID Status Reason Start Date Expiration Date Visits Re quested Visits Authorized [id number] Closed 02/06/2023 02/06/2024 99 99 Question Answer Reason for Referral Transportation - Pt needs transportation assistance to consider mammo- Agreed to CM referral Reason for Visit * Reason Onset Date Comments Medication Refill Central Patient Navigator Outreach 02/02/2023 med refill - 1st Encounter Details Date Type Department Care Team (Late st Contact Info) Description 02/02/2023 [facility]ill [facility] [address] [place] [address] Cristiane Shirley MD [address] [place] [address] Medication Refill; Central Patient Navigator Outreach (med refill - 1st ) Social History Tobacco Use Types Packs/Day Years Used Date Smoking Tobacco: Former Cigarettes 1.5 13 0 09/08/1971 - 09/07/1984 Passive Smoke Exposure: Current Smokeless Tobacco: Never Alcohol Use Standard Drinks/Week Comments No 0 (1 standard drink = 0.6 oz pur e alcohol) Overall Financial Resource Strain ([facility]) Answe r Date Recorded How hard is it for you to pa y for the very basics like food, housing, medical care, and heating? Not very hard 02/07/2021 PHQ-2 Answer Date Recorded PHQ-2 Total Score 0 12/21/2022 [facility] of Occupat ional Health - Occupational Stress [...] 12/01/2021 10:24 AM Rodolfo Dill MA documented as of [...] tablet by mouth once daily 30 Tablet 02/05/2023 02/10/2023 documented in this encounter Miscellaneous Notes * Addendum Note - Sukhdeep Sheets RN - 02/06/2023 10:07 AM EDTAddended by: SUKHDEEP SHEETS on: 02/06/2023 10:07 AM Modules accepted: Orders, SmartSet * Telephone Encounter - Sukhdeep Sheets RN - 02/06/2023 10:06 AM EDT Patient Outreach: Care Gap Outreach Attempt Count: no contact attempted Care Gaps Addressed oncology nurse navigator: Care Management Referral- transportation needs Outcome: Referral to appropriate department placed * Telephone Encounter - Cristiane Zamorano - 02/05/2023 3:37 PM EDT Patient Outreach: Medication Refill Appointment 1st [facility] Primary Care Attempt Count: 1st Care Gaps Addressed oncology nurse navigator: Appointment, Mammogram and Dexa Scan Outcome: Appointment scheduled with PCP 02/22/23 and Pt needs transportation assistance to consider mammo- Agreed to CM referral and routed for f/u * Telephone Encounter - Cesilia Sorto CPhT - 02/05/2023 8:35 AM EDT Atorvastatin- Medication Refill Protocol failed due to appointment. software asset management analyst Reason: Chart review does not show a coded diagnosis in protocol timeframe. software asset management analyst Action: Approved 30-day supply of medication Routed to Patient Navigator team for outreach to schedule appointment. Pt had appt on 01/10/23 but dx not discussed documented in this encounter Plan of Treatment Upcoming Encounters Date Type Department Care Team (Late st Contact Info) Description 07/29/2024 9:00 AM EST Appointment [facility] [address] [place] [address] Jomar Kim MD [address] [place] [address] Scheduled Referrals Name Type Priority Associated Diagnoses Order Schedule AMB REFERRAL TO CARE MANAGEMENT Outpatient Referral Routine Temporal arteritis (HCC) Ordered: 02/06/2023 documented as of this encounter Goals Goal [...] neuropathy weekly. ?? Refer to PCP and/or Neuro Ophthalmologist, Vascular Specialist as indicated. ?? Monitor patient compliance with wound care, diabetes management and proper offloading. Patients abdominal discomfort will improve or resolve by next follow up call from [facility]. General Not on track(03/09 11:41 AM EDT) No Joselyn Chance RN Stay Tobacco Free Lifestyle On track(02/07 10:23 AM EDT) Yu AlexisJarochohinanathanJOSE MANUEL HEMOGLOBIN A1C < 7.0 Result Component 5.6( 024 3:04 PM EST) Yu Rachel Rogers RMA documented as of this encounter Visit Diagnoses Diagnosis Temporal arteritis (HCC)- Primary Giant cell arteritis documented in this encounter Discontinued Medications Medication Sig Discontinue Reason Start Date End Da te atorvastatin (LIPITOR) 20 mg Oral Tablet Take 1 Tablet by mouth daily. 04/29/2022 02/05/2023 documented as of this encounter Additional Health Concerns Assessment Noted Time A fall risk assessment has been complete d for the patient 07/27/2022 10:00 AM EST documented as of this encounter Care Teams Timber Sprinkler Relationship Specialty Start Date End Date Critsiane Shirley MD [address] [place] [address] PCP - General Family Medicine 08/20/18 12/29/23 Garett Holt MD Internal Medicine-Gastroenter ology 12/22/12 Ruiz Stokes MD [address] [place] [address] Internal Medicine-Cardiovascu lar Disease 07/25/14 Yenny Schwab MD [address] [facility] Building [address] [place] [address] Internal Medicine-Rheumatolog y 12/11/16 Angelina Thomas, BS, COS Case [employer] Open Stack Administrator 02/06/23 02/26/23 documented as of this encounter
--- OUTSIDE RECORDS SUMMARY | 2024-07-22 16:00 | XMS_ITS | Encounter Summary ---
Author Organization [place] [address] Care Team Providers Care Director Of Infection Prevention Name Role Phone Garett Holt MD Unavailable Ruiz Stokes MD Unavailable [phone] Yenny Schwab MD Unavailable [phone] Cristiane Pop MD Primary Care Provider [phone] Reason for Referral * Consultation (Routine) - Closed Specialty Diagnoses / Procedures Referred By Contalissa t Referred To Contact Gynecology Diagnoses Female bladder prolapse Cristiane Pop MD [address] [place] [address] Phone: tel: fax: Poornima Vital MD [address] [place] [address] Phone: tel: fax: Referral ID Status Reason Start Date Expiration Date Visits Re quested Visits Authorized [id number] Closed 01/09/2023 01/09/2024 99 99 Reason for Visit * Reason Onset Date Comments Other 01/09/2023 Encounter Details Date Type Department Care Team (Late st Contact Info) Description 01/09/2023 Telephone [facility] [address] [phone] Cristiane Pop MD [address] [place] [address] Other Social History Tobacco Use Types Packs/Day [...] Date Recorded PHQ-2 Total Score 0 12/21/2022 [facility] [place] of Occupat ional Health - Occupational Stress [...] Rodolfo Dill MA documented in this encounter Miscellaneous Notes * Telephone Encounter - Vicky Oliva MA - 01/09/2023 5:27 PM EDT Appt scheduled * Addendum Note - Cristiane Pop MD - 01/09/2023 5:15 PM EDTAddended by: CRISTIANE POP on: 01/09/2023 05:15 PM Modules accepted: Orders * Telephone Encounter - Cristiane Pop MD - 01/09/2023 5:02 PM EDT Patient had seen dr vital in the past and Aylssa had declined surgery. I had sent her to the analytics architect to see if they could try pessary again. (Dr Vital has previously also requested that further referrals go through gynecology first). Spoke to [place] and they would like to see what Dr Vital sayssince they had no other options. I placed referral. Also she hurt her leg today and it is swollen so she needs an appointment please. * Telephone Encounter - Anahi Redd MA - 01/09/2023 2:16 PM EDT Alyssa De La Rosa called... he is so upset.. wants to speak to Dr Pop directly. He took his to see Dr Law. Had to pay 60. [address] them.. 40 at the office. Only for the dr to tell them that she is unsure why the dr sent her there.. she is a baby dr..... Alyssa is crying in pain and the wants to see what dr Dill thoughts are. I told him the dr would call him tonight after patients. documented in this encounter Plan of Treatment Upcoming Encounters Date Type Department Care Team (Late st Contact Info) Description 07/29/2024 9:00 AM EST Appointment [facility] [address] [place] [address] Jomar Kim MD [address] [place] [address] Scheduled Referrals Name Type Priority Associated Diagnoses Order Schedule AMB REFERRAL TO UROGYNECOLOGY Outpatient Referral Routine Female bladder prolapse Ordered: 01/09/2023 documented as of this encounter Goals Goal Patient Goal Type Associated Problems Recent Progress Patient-Stated? Author Blood Pressure < 140/90 Blood Pressure 110/72(04/09 2:44 PM EDT) No Rachel Rogers RMA BMI (Calculated) < 30 General 50.9(2023 2:44 PM EDT) No Rachel Rogers RMA Eat better, exercise, reach an ideal body weight General No Ni Clinton orthotics technician Healing General On track(12/03 9:18 AM EDT) [...] neuropathy weekly. ?? Refer to PCP and/or Gold Burnisher, Vascular Specialist as indicated. ?? Monitor patient [...] as of this encounter Visit Diagnoses Diagnosis Female bladder prolapse- Primary Cystocele, midline documented in this encounter Additional Health Concerns Assessment Noted Time A fall risk assessment has been complete d for the patient 07/27/2022 10:00 AM EST documented as of this encounter Care Teams Director Of Infection Prevention Relationship Specialty Start Date End Date Cristiane Pop MD [address] [place] [address] PCP - General Family Medicine 08/20/18 12/29/23 Garett Holt MD Internal Medicine-Gastroenterology 12/22/12 Ruiz Stokes MD [address] [place], [place] [id number] Internal Medicine-Cardiovascular Disease 07/25/14 Yenny Schwab MD [address] [facility] [address] [place] [address] Internal Medicine-Rheumatology 12/11/16 documented as of this encounter
--- OUTSIDE RECORDS SUMMARY | 2024-07-22 16:00 | XMS_ITS | Encounter Summary ---
Author Organization [place] [address] Care Team Providers Care Auditor Supervisor Name Role Phone Garett Holt MD Unavailable [phone] Ruiz Stokes MD Unavailable [phone] Yenny Schwab MD Unavailable [phone] Cristiane Shirley MD Primary Care Provider [phone] Angelina Thomas BS, COS Unavailable Unavail able Reason for Visit * Reason Onset Date Comments Transportation 02/07/2023 Encounter Details Date Type Department Care Team (Late st Contact Info) Description 02/07/2023 Patient Outreach [facility] [address] [place] [id number] Angelina Thomas, BS, COS Transportation Social History [...] Date Recorded PHQ-2 Total Score 0 12/21/2022 [facility] - Occupational [...] Assessment Author Yes 12/01/2021 10:24 AM EDT Rodolof Skelton MA * Does this person have [...] Notes * Angelina Thomas BS, COS - 02/07/2023 9:41 AM EDT Patient Outreach Second attempt to contact patient regarding transportation Outcome: Patient did not answer No voicemail available / voicemail full Message was sent via [employer] Will attempt additional outreach as scheduled documented in this encounter Plan of Treatment Upcoming Encounters Date Type Department Care Team (Late st Contact Info) Description 07/29/2024 9:00 AM EST Appointment [facility] [address] [place] [address] Jomar Kim MD [address] [place] [address] documented as of this encounter [...] neuropathy weekly. ?? Refer to PCP and/or Felt Hat Inspector And Packer, Vascular Specialist as indicated. ?? Monitor patient [...] documented as of this encounter Care Teams Auditor Supervisor Relationship Specialty Start Date End Date Cristiane Shirley MD [address] [place] [address] PCP - General Family Medicine 08/20/18 12/29/23 Garett Holt MD Internal Medicine-Gastroenter ology 12/22/12 Ruiz Stokes MD [address] [place] [address] Internal Medicine-Cardiovascu lar Disease 07/25/14 Yenny Schwab MD [address]51 [facility] Building [address] [place] [address] Internal Medicine-Rheumatolog y 12/11/16 Angelina Thomas, ARYAN, COS Case Wedding Planning Internship 02/06/23 02/26/23 documented as of this encounter
--- OUTSIDE RECORDS SUMMARY | 2024-07-22 16:00 | XMS_ITS | Encounter Summary ---
Author Organization [facility] [address] Care Team Providers Care Soil Scientist Name Role Phone Garett Holt MD Unavailable [phone] Ruiz Stokes MD Unavailable [phone] Yenny Schwab MD Unavailable [phone] Cristiane Shirley MD Primary Care Provider [phone] Encounter Details Date Type Department Care Team (Late st Contact Info) Description 01/10/2023 12:55 PM EDT - 01/10/2023 11:59 PM EDT Hospital Encounter GRT XRAY [address] [place] [address] Cristiane Shirley MD [address] [place] [address] Foot pain, right; Right hip pain Discharge Disposition: Home or [...] 1 box 6 02/24/2021 Blood Sugar Diagnostic [facility] StripIndications:T ype 2 diabetes mellitus without complication, without long-term current use of insulin (HCC) 1 Strip by [facility]Non-Drug; Combo Route) route 2 times daily. Per formulary. Dx: E11.9 100 Each 11 08/05/2022 Blood-Glucose Meter [facility] KitIndications:Typ e 2 diabetes mellitus without complication, without long-term current use of insulin (HCC) Per formulary. Dx. E11.9 1 Kit 08/05/2022 CALCIUM ORAL Take 1 Tab by mouth daily. cholecalciferol, vitamin D3, (VITAMIN D3) 25 mcg (1,000 unit) Oral Tablet Take 1 Tab by mouth daily. 30 Tab 11 09/14/2019 fluticasone propionate (FLONASE) 50 mcg/actuation Nasl [place], SuspensionIndicati ons:ETD (Eustachian tube dysfunction), right Use 1 spray(s) in each nostril once daily 16 g 10/17/2022 Lancets [facility] MiscIndications:Ty pe 2 diabetes mellitus without complication, without long-term current use of insulin (HCC) 1 Each by [facility]Non-Drug; Combo Route) route 2 times daily. Per formulary. Dx: E11.9 100 Each 11 08/05/2022 loratadine (CLARITIN) 10 mg Oral TabletIndications: Seasonal allergic rhinitis due to pollen Take 1 tablet by mouth once daily 63 Tablet 12/24/2021 Nebulizer Accessories [facility] KitIndications:Acu te bronchitis, unspecified organism Nebulizer accessories 1 Kit 02/24/2021 olopatadine (PATANOL) 0.1 % Opht DropsIndications:A llergic conjunctivitis, bilateral Place 1 Drop into both eyes 2 times daily. Administer drops in both eyes. 5 mL 07/27/2022 ONETOUCH DELICA PLUS LANCET 33 gauge [facility] USE TO CHECK GLUCOSE TWICE [...] for 10 days. 30 Capsule 01/10/2023 01/21/20 23 documented as of this encounter Discharge Disposition Disposition Code Departure Means Destination Home or Self Care documented in this encounter Plan of Treatment Upcoming Encounters Date Type Department Care Team (Late st Contact Info) Description 07/29/2024 9:00 AM EST Appointment [facility] [address] [place] [address] Jomar Kim MD [address] [place] [address] documented as of this encounter Goals Goal [...] neuropathy weekly. ?? Refer to PCP and/or Gas Derrick Operator, Vascular Specialist as indicated. ?? Monitor [...] Name Priority Date/Time Associated Diagnosis Comments XR TOE RIGHT 2 + VW Routine 01/10/2023 1 :18 PM EDT Foot pain, right XR HIP RIGHT AP LATERAL W AP PELVIS Routine 01/10/2023 1:18 PM EDT Right hip pain documented in [...] 1:18 PM CLINICAL HISTORY: ??M25.551-Pain in right xnm-NJC-60-CM COMPARISON: ??None. PROCEDURE COMMENTS: ??AP view of [...] 1:18 PM CLINICAL HISTORY: M25.551-Pain in right hme-KVD-30-CM COMPARISON: None. PROCEDURE COMMENTS: AP view of [...] office of the ordering clinician. us Cristiane J Utter MD IMG DIAGNOSTIC IMAGING ORDERAB LES Final Result * XR TOE RIGHT 2 + VW (01/10/2023 1:18 PM EDT) Anatomical Region Laterality Modality Foot Radiographic Faby ging 01/10/2023 1:18 PM EDT Impressions 01/10/2023 1:23 PM EDT No acute bony abnormality. - Note: Radiology results need to be interpreted within a comprehensive clinical context. ??If you have questions about the radiology report, please contact the office of the ordering clinician. Narrative 01/10/2023 1:23 PM EDT XR TOE RIGHT 2 + VW, ??01/10/2023 1:18 PM CLINICAL HISTORY: ??M79.671-Pain in right acnb-JYP-31-CM COMPARISON: ??09/14/2019 PROCEDURE COMMENTS: XR TOE RIGHT 2 + VW FINDINGS: Osteopenia. No acute fracture or dislocation. Calcaneal enthesopathy. Spurring dorsally the midfoot. Mild spurring at the first MTP joint with joint space narrowing. Procedure Note Perla Schroeder MD - 01/10/2023 XR TOE RIGHT 2 + VW, 01/10/2023 1:18 PM CLINICAL HISTORY: M79.671-Pain in right iwdw-ZMO-68-CM COMPARISON: 09/14/2019 PROCEDURE COMMENTS: XR TOE RIGHT 2 + VW FINDINGS: Osteopenia. No acute fracture or dislocation. Calcaneal enthesopathy.Spurring dorsally the midfoot. Mild spurring at the first MTP joint with jointspace narrowing. IMPRESSION: No acute bony abnormality. - Note: Radiology results need to be interpreted within a comprehensiveclinical context. If you have questions about the radiology report, please contactthe office of the ordering clinician. us Cristiane SOTO DIAGNOSTIC IMAGING ORDERAB LES Final Result documented in this encounter Visit Diagnoses Diagnosis Foot pain, right Pain in limb Right hip pain Pain in joint, pelvic region and thigh documented in this encounter Additional Health Concerns Assessment Noted Time A fall risk assessment has been complete d for the patient 07/27/2022 10:00 AM EST documented as of this encounter Care Teams Soil Scientist Relationship Specialty Start Date End Date Cristiane Shirley MD [address] [place] [address] PCP - General Family Medicine 08/20/18 12/29/23 Garett Holt MD Internal Medicine-Gastroenterology 12/22/12 uRiz Stokes MD [address] [place] [id number] Internal Medicine-Cardiovascular Disease 07/25/14 Yenny Schwab MD [address] [address] Internal Medicine-Rheumatology 12/11/16 documented as of this encounter
--- OUTSIDE RECORDS SUMMARY | 2024-07-22 16:00 | XMS_ITS | Encounter Summary ---
Author Organization [place] [address] Care Team Providers Care Egg Gatherer Name Role Phone Garett Holt MD Unavailable [phone] Ruiz Stokes MD Unavailable [phone] Yneny Schwab MD Unavailable [phone] Cristiane Shirley MD Primary Care Provider [phone] Reason for Referral * Consultation (Routine) - Closed Specialty Diagnoses / Procedures Referred By Contalissa t Referred To Contact Diagnoses Arthritis of both hips Cristiane Shirley MD [address] [place] [address] Phone: tel: fax: Tim Garcia MD [address] [place] [address] Phone: tel: fax: Referral ID Status Reason Start Date Expiration Date Visits Re quested Visits Authorized [id number] Closed 01/10/2023 01/10/2024 99 99 Encounter Details Date Type Department Care Team (Late st Contact Info) Description 01/10/2023 Orders Only [facility] [address] [facility] [address] Ana Paula Skelton MA Arthritis of both hips (Primary Dx) Social History Tobacco Use Types [...] Date Recorded PHQ-2 Total Score 0 12/21/2022 [facility] - [...] Rodolfo Dill MA documented in this encounter Plan of Treatment Upcoming Encounters Date Type Department Care Team (Late st Contact Info) Description 07/29/2024 9:00 AM EST Appointment [facility] [address] [place] [address] Jomar Kim MD [address] [place] [address] Scheduled Referrals Name Type Priority Associated Diagnoses Order Schedule AMB REFERRAL TO ORTHOPEDIC SURGERY Outpatient Referral Routine Arthritis of both hips Ordered: 01/10/2023 documented as of this encounter Goals Goal [...] neuropathy weekly. ?? Refer to PCP and/or Agricultural Service Worker, Vascular Specialist as indicated. ?? Monitor [...] this encounter Visit Diagnoses Diagnosis Arthritis of both hips- Primary documented in this encounter Additional Health Concerns Assessment Noted Time A fall risk assessment has been complete d for the patient 07/27/2022 10:00 AM EST documented as of this encounter Care Teams Egg Gatherer Relationship Specialty Start Date End Date Cristiane Shirley MD [address] [place] [address] PCP - General Family Medicine 08/20/18 12/29/23 Garett Holt MD Internal Medicine-Gastroenterology 12/22/12 Ruiz Stokes MD [address] [place] [address] Internal Medicine-Cardiovascular Disease 07/25/14 Yenny Schwab MD [address] [address] Internal Medicine-Rheumatology 12/11/16 documented as of this encounter
--- OUTSIDE RECORDS SUMMARY | 2024-07-22 16:00 | XMS_ITS | Encounter Summary ---
Author Organization [facility] [address] Care Team Providers Care Supervisor Laboratory Animal Facility Name Role Phone Garett Holt MD Unavailable [phone] Ruiz Stokes MD Unavailable [phone] Yenny Schwab MD Unavailable [phone] Cristiane Shirley MD Primary Care Provider [phone] Reason for Visit * Reason Comments Gynecologic Exam Hysterectomy in [facility] at [facility], Last seen Dr. Liz in 01/2020, had pessary but would not stay in place. Pelvic Pain * Consultation (Routine) - Closed Specialty Diagnoses / Procedures Referred By Ron t Referred To Contact Obstetrics and Gynecology Diagnoses Female bladder prolapse Cristiane Shirley MD [address] [place] [address] Phone: tel: fax: [facility] [address] [place] [phone] Phone: tel: fax: Referral ID Status Reason Start Date Expiration Date Visits Re quested Visits Authorized [id number] Closed 12/21/2022 12/21/2023 99 99 Encounter Details Date Type Department Care Team (Late st Contact Info) Description 01/09/2023 1:00 PM EDT Office Visit [facility] [address] [place] [address] Tammy Law MD [address] [place] [address] Midline cystocele (Primary Dx); Pelvic pain Social History Tobacco Use Types Packs/Day [...] PHQ-2 Total Score 0 12/21/2022 [facility] - Occupational [...] Sign Reading Time Taken Comments Blood Pressure 130/82 01/09/2023 1:19 PM EDT Pulse - - Temperature - - Respiratory Rate - - Oxygen Saturation - - Inhaled Oxygen Concentration - - Weight 110.2 kg (243 lb) 01/09/2023 1:19 PM EDT Height 162.6 cm (5' 4 ) 01/09/2023 1:19 PM EDT Body Mass Index 41.71 01/09/2023 1:19 PM EDT documented in this encounter Functional [...] Rodolfo Dill MA documented in this encounter Patient Instructions * Attachments The following attachments cannot be sent through Care Everywhere. * Cystocele and Rectocele (Honduran) * Cystocele and Rectocele Discharge Instructions (Honduran) * Cystocele and Rectocele Repair Discharge Instructions (Honduran) * Cystocele and Rectocele Repair (Honduran) * Pelvic Floor Dysfunction Discharge Instructions (Honduran) documented in this encounter Progress Notes * Tammy Law MD - 01/09/2023 1:00 PM EDT [facility] MANAGER STAR Visit Chief Complaint Patient presents with ??? Gynecologic Exam Hysterectomy in 2015 at [facility], Last seen Dr. Liz in 01/2020, had pessary but would not stay in place. ??? Pelvic Pain Pt is a 67 y.o. 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 Here b/c her leg pain potentially is caused by bladder prolapse. Has been seen by urogyn previously failed several pessaries Unclear if had supracervical hyst or not Hurt herself today getting out of the car using pepsi crates to step out (her normal routine) and had to use a wheelchair to get to the exam room. For this reason I am unable to examine her today She is concerned that her leg swelling and pain is from the bulge coming out of her vagina, which her has looked at and said it didn't look like it usually does. Past Medical History: Diagnosis Date ??? Anemia [...] CPAP OR BIPAP PER PATIENT ??? Ulcer OB History Para Term AB Living 2 2 2 2 SAB IAB Ectopic Multiple Live Births 2 # Outcome Date GA Lbr Laz/2nd Weight Sex Delivery Anes PTL Lv 2 Term 1993 40w0d M Vag-Spont EPI YESI 1 Term 1991 40w0d F Vag-Spont EPI YESI Past Surgical History: Procedure Laterality Date ??? ARTERY BIOPSY Right 01/06/2017 RIGHT TEMPORAL ARTERY BIOPSY ; Surgeon: Christa Chavez MD; Location: [facility]; Service: General ??? CARDIAC CATHETERIZATION 04/2015 ??? CHOLECYSTECTOMY 1989 ??? COLONOSCOPY ??? COLONOSCOPY 02/17/2013 Surgeon: Garett Holt MD; Location: [facility]; Service: ??? DENTAL SURGERY upper and lower teeth removed ??? UPPER GASTROINTESTINAL ENDOSCOPY ??? UPPER GASTROINTESTINAL ENDOSCOPY 02/17/2013 Surgeon: Garett Holt MD; Location: [facility]; Service: ??? UPPER GASTROINTESTINAL ENDOSCOPY N/A 07/26/2020 ESOPHAGOGASTRODUODENOSCOPY with biopsy; Surgeon: Jomar Kim MD; Location: [facility]; Service: Endoscopy ??? VENTRAL HERNIA REPAIR N/A 04/18/2020 [facility] VENTRAL HERNIA REPAIR WITH MESH ; Surgeon: Regan Butts MD; Location: [facility]; Service: General Current Outpatient Medications Medication Instructions ??? albuterol (PROVENTIL) 2.5 mg, Nebulization, EVERY 4 HOURS PRN ??? amLODIPine (NORVASC) 10 mg, Oral, DAILY ??? aspirin 81 mg Oral Tablet, Delayed Release (E.C.) Take 1 tablet by mouth once daily ??? atorvastatin (LIPITOR) 20 mg, Oral, DAILY ??? Blood Sugar Diagnostic Mis Strip 1 Strip, Misc.(Non-Drug; Combo Route), 2 TIMES DAILY, Per formulary. Dx: E11.9 ??? Blood-Glucose Meter [facility] Kit Per formulary. Dx. E11.9 ??? CALCIUM ORAL 1 Tablet, Oral, DAILY ??? cholecalciferol (vitamin D3) (VITAMIN D3) 1,000 Units, Oral, DAILY ??? docusate sodium (COLACE) 100 mg, Oral, 2 TIMES DAILY ??? fluticasone propionate (FLONASE) 50 mcg/actuation Nasl [place], Suspension Use 1 spray(s) in eachnostril once daily ??? fUROsemide (LASIX) 40 mg Oral Tablet One tab daily and may take an extra if needed. ??? Lancets Misc Misc 1 Each, Misc.(Non-Drug; Combo Route), 2 TIMES DAILY, Per formulary. Dx: E11.9 ??? lisinopriL (PRINIVIL;ZESTRIL) 20 mg, Oral, DAILY ??? loratadine (CLARITIN) 10 mg Oral Tablet Take 1 tablet by mouth once daily ??? metFORMIN (GLUCOPHAGE) 500 mg, Oral, DAILY WITH MEAL ??? Nebulizer Accessories Misc Kit Nebulizer accessories ??? olopatadine (PATANOL) 0.1 % Opht Drops 1 Drop, Both Eyes, 2 TIMES DAILY, Administer drops in both eyes. ??? ONETOUCH DELICA PLUS LANCET 33 gauge Misc Misc USE TO CHECK GLUCOSE TWICE DAILY ??? oxybutynin (DITROPAN-XL) 10 mg, Oral, DAILY ??? tiZANidine (ZANAFLEX) 4 mg, Oral, 3 TIMES DAILY PRN Physical Exam: BP 130/82 (BP Location: Right arm, Patient Position: Sitting) Ht 5' 4 (1.626 m) Wt 243 lb (110.2 kg) BMI 41.71 kg/m?? Body mass index is 41.71 kg/m??. G A/P: Diagnoses and all orders for this visit: Midline cystocele Pelvic pain No follow-ups on file. Total time spent reviewing records and visit with patient 45 minutes with >50% time spent counseling, time was spent in epic or paper or both reviewing chart, labs, prior imaging reports and provider notes. Tammy Law MD 01/09/2023 1:39 PM documented in this encounter Plan of Treatment Upcoming Encounters Date Type Department Care Team (Late st Contact Info) Description 07/29/2024 9:00 AM EST Appointment [facility] [address] [place] [address] Jomar Kim MD [address] [place] [address] Scheduled Referrals Name Type Priority Associated Diagnoses Orde r Schedule AMB REFERRAL TO OB-MANAGER STAR Outpatient Referral Routine Female bladder prolapse Ordered: 12/21/2022 documented as of this encounter Goals Goal [...] neuropathy weekly. ?? Refer to PCP and/or Ditching Machine Operating Engineer, Vascular Specialist as indicated. ?? Monitor [...] as of this encounter Visit Diagnoses Diagnosis Midline cystocele- Primary Cystocele, midline Pelvic pain Unspecified symptom associated with female genital organs documented in this encounter Additional Health Concerns Assessment Noted Time A fall risk assessment has been complete d for the patient 07/27/2022 10:00 AM EST documented as of this encounter Care Teams Supervisor Laboratory Animal Facility Relationship Specialty Start Date End Date Cristiane Shirley MD [address] [place] [address] PCP - General Family Medicine 08/20/18 12/29/23 Garett Holt MD Internal Medicine-Gastroenterology 12/22/12 Ruiz Stokes MD [address] [place] [address] Internal Medicine-Cardiovascular Disease 07/25/14 Yenny Schwab MD [address] [address] Internal Medicine-Rheumatology 12/11/16 documented as of this encounter
--- OUTSIDE RECORDS SUMMARY | 2024-07-22 16:00 | XMS_ITS | Encounter Summary ---
Author Organization [place] [address] Care Team Providers Care Newcomer Hostess Name Role Phone Garett Holt MD Unavailable [phone] Ruiz Stokes MD Unavailable [phone] Yenny Schwab MD Unavailable [phone] Cristiane Shirley MD Primary Care Provider [phone] Angelina Thomas BS, COS Unavailable Unavail able Reason for Visit * Reason Onset Date Comments Transportation 02/06/2023 Encounter Details Date Type Department Care Team (Late st Contact Info) Description 02/06/2023 Patient Outreach [facility] [address] [place] [id number] Angelina Thomas, BS, COS Transportation Social History [...] Author No 12/01/2021 10:24 AM EDT Rodolfo kSelton MA * Because of a physical, mental [...] Notes * Angelina Thomas BS, COS - 02/06/2023 11:12 AM EDT Patient Outreach Attempted to contact patient regarding transportation Outcome: Patient did not answer No voicemail available / voicemail full Will attempt additional outreach as scheduled documented in this encounter Plan of Treatment Upcoming Encounters Date Type Department Care Team (Late st Contact Info) Description 07/29/2024 9:00 AM EST Appointment [facility] [address] [place] [address] Jomar Kim MD [address] [place] [address] documented as of this encounter [...] General On track(12/03 9:18 AM EDT) No eBssie Morse RN Note: Wound volume reduction goals [...] neuropathy weekly. ?? Refer to PCP and/or Ad Trafficker, Vascular Specialist as indicated. ?? Monitor patient [...] documented as of this encounter Care Teams Newcomer Hostess Relationship Specialty Start Date End Date Cristiane Shirley MD [address] [place] [address] PCP - General Family Medicine 08/20/18 12/29/23 Garett Holt MD Internal Medicine-Gastroenter ology 12/22/12 Ruiz Stokes MD [address] [place] [address] Internal Medicine-Cardiovascu lar Disease 07/25/14 Yenny Schwab MD 651 [facility] [address] [place] [id number] Internal Medicine-Rheumatolog y 12/11/16 Angelina Thomas BS, COS Case Hydro Mechanic 02/06/23 02/26/23 documented as of this encounter
--- OUTSIDE RECORDS SUMMARY | 2024-07-22 16:00 | XMS_ITS | Encounter Summary ---
Author Organization [place] [address] Care Team Providers Care Drafter Civil (Cad) Name Role Phone Garett Holt MD Unavailable Ruiz Stokes MD Unavailable Yenny Schwab MD Unavailable [phone] Cristiane Shirley MD Primary Care Provider [phone] Reason for Visit * Reason Onset Date Comments Medication Problem 01/13/2023 omeprazole (P RILOSEC) 20 mg Oral Capsule, Delayed Release Encounter Details Date Type Department Care Team (Late st Contact Info) Description 01/13/2023 Telephone [facility] [address] [place] [address] Cristiane Shirley MD [address] [place], [place] [id number] Medication Problem (omeprazole (PRILOSEC) 20 mg Oral Capsule, Delayed Release) Social History Tobacco Use Types Packs/Day Years [...] Date Recorded PHQ-2 Total Score 0 12/21/2022 [facility] - [...] encounter Miscellaneous Notes * Telephone Encounter - Cristiane Shirley MD - 01/14/2023 5:16 PM EDT Ok it is off list. * Telephone Encounter - Susan Kim, Clerical Staff - 01/13/2023 2:28 PM EDT Medication Management/Problem What medication(s) do you have concerns about: omeprazole (PRILOSEC) 20 mg Oral Capsule, Delayed Release(E.C.) (Discontinued) 98 Cap 3 03/27/2021 12/01/2021 Sig - Route: TAKE 1 CAP BY MOUTH DAILY. - Oral Prescribing provider: PCP What are your concerns/request: Vomiting medicine back up Desired outcome: Other Stop taking Last appointment date: 01/10/23 Pharmacy: [facility] [place] [phone] [address] Additional notes: Pt said PCP wanted him to call and let her know what medication is making pt sick documented in this encounter Plan of Treatment Upcoming Encounters Date Type Department Care Team (Late st Contact Info) Description 07/29/2024 9:00 AM EST Appointment [facility] [address] [place], [place] [id number] Jomar Kim MD [address] [place] [address] documented as of this encounter Goals Goal Patient Goal Type Associated Problems Recent Progress Patient-Stated? Author Blood Pressure < 140/90 Blood Pressure 110/72(04/09 2:44 PM EDT) No Rachel Rogers RMA BMI (Calculated) < 30 General 50.9(2023 2:44 PM EDT) No Rachel Rogers RMA Eat better, exercise, reach an ideal body weight General No Ni [place], heater helper forge Healing General On track(12/03 9:18 AM EDT) [...] neuropathy weekly. ?? Refer to PCP and/or Handle Finisher, Vascular Specialist as indicated. ?? Monitor patient [...] documented as of this encounter Care Teams Drafter Civil (Cad) Relationship Specialty Start Date End Date Cristiane Shirley MD [address] [place] [address] PCP - General Family Medicine 08/20/18 12/29/23 Garett Holt MD Internal Medicine-Gastroenterology 12/22/12 Ruiz Stokes MD [address] [place] [address] Internal Medicine-Cardiovascular Disease 07/25/14 Yenny Schwab MD [address] [id number] Internal Medicine-Rheumatology 12/11/16 documented as of this encounter
--- OUTSIDE RECORDS SUMMARY | 2024-07-22 16:01 | XMS_ITS | Encounter Summary ---
Author Organization [place] [address] Care Team Providers Care Statement Request Clerk Name Role Phone Garett Holt MD Unavailable [phone] Ruiz Stokes MD Unavailable [phone] Yenny Schwab MD Unavailable [phone] Cristiane Shirley MD Primary Care Provider Reason for Visit * Reason Onset Date Comments Medication Refill 07/30/2022 Encounter Details Date Type Department Care Team (Late st Contact Info) Description 07/30/2022 Refill [facility] [address] [place] [address] Doron Rojas, DATE PITTER [address] [place], [place] [id number] Medication Refill Social History Tobacco Use Types Packs/Day Years Used Date Smoking Tobacco: Former Cigarettes 1.5 13 0 09/08/1971 - 09/07/1984 Smokeless Tobacco: Never Alcohol Use Standard Drinks/Week Comments No 0 (1 standard drink = 0.6 oz pur e alcohol) Overall Financial Resource Strain (CARDIA) Answe r Date Recorded How hard is it for you to pa y for the very basics like food, housing, medical care, and heating? Not very hard 02/07/2021 PHQ-2 Answer Date Recorded PHQ-2 Total Score 0 12/01/2021 [facility] Occupat ional Health - Occupational Stress [...] Yes 02/07/2021 Sexually Active Control Partners Comments Yes Post-menopausal Male Comments No Sex and Gender [...] Last Filled Start Date End Date Blood-Glucose Meter Misc KitIndications:Typ e 2 diabetes mellitus without complication, without long-term current use of insulin (HCC) Please fill with what her ins will cover and include lancets and strips. Dx. E11.9 1 Kit 07/30/2022 documented in this encounter Plan of Treatment Upcoming Encounters Date Type Department Care Team (Late st Contact Info) Description 07/29/2024 9:00 AM EST Appointment [facility] [address] [place] [address] Jomar Kim MD [address] [place] [address] documented as of this encounter Goals Goal Patient Goal Type Associated Problems Recent Progress Patient-Stated? Author Blood Pressure < 140/90 Blood Pressure 110/72(04/09 2:44 PM EDT) No Rachel Rogers RMA BMI (Calculated) < 30 General 50.9(2023 2:44 PM EDT) No Rachel Rogers RMA Eat better, exercise, reach an ideal body weight General No Ni Clinton, aboriginal education teacher Healing General On track(12/03 9:18 AM EDT) [...] neuropathy weekly. ?? Refer to PCP and/or Marketing Development Manager, Vascular Specialist as indicated. ?? Monitor [...] Discontinue Reason Start Date End Da te Blood-Glucose Meter Misc KitIndications:Type 2 diabetes mellitus without complication, without long-term current use of insulin (HCC) Please fill with what her ins will cover and include lancets and strips. Dx. E11.9 Reorder 07/27/2022 07/30/2022 documented as of this encounter Additional Health Concerns Assessment Noted Time A fall risk assessment has been complete d for the patient 07/27/2022 10:00 AM EST documented as of this encounter Care Teams Statement Request Clerk Relationship Specialty Start Date End Date Cristiane Shirley MD [address] [place] [address] PCP - General Family Medicine 08/20/18 12/29/23 Garett Holt MD Internal Medicine-Gastroenterology 12/22/12 Ruiz Stokes MD [address] [place], [place] [id number] Internal Medicine-Cardiovascular Disease 07/25/14 Yenny Schwab MD 651 [facility] [address] [place] [address] Internal Medicine-Rheumatology 12/11/16 documented as of this encounter
--- OUTSIDE RECORDS SUMMARY | 2024-07-22 16:01 | XMS_ITS | Encounter Summary ---
Author Organization [place] [address] Care Team Providers Care Nutrient Management Specialist Name Role Phone Garett Holt MD Unavailable [phone] Ruiz Stoeks MD Unavailable [phone] Yenny Schwab MD Unavailable [phone] Cristiane Shirley MD Primary Care Provider Reason for Visit * Reason Onset Date Comments Medication Refill 05/27/2022 Encounter Details Date Type Department Care Team (Late st Contact Info) Description 05/27/2022 Refill [facility] [address] [place] [address] Cristiane Shirley MD [address] [place] [address] Medication Refill Social History Tobacco Use Types Packs/Day Years Used Date Smoking Tobacco: Former Cigarettes 1.5 13 0 09/08/1971 - 09/07/1984 Smokeless Tobacco: Never Alcohol Use Standard Drinks/Week Comments No 0 (1 standard drink = 0.6 oz pur e alcohol) Overall Financial Resource Strain (CARDIA) Elaynee r Date Recorded How hard is it for you to pa y for the very basics like food, housing, medical care, and heating? Not very hard 02/07/2021 PHQ-2 Answer Date Recorded PHQ-2 Total Score 0 12/01/2021 [facility] Occupat ional Health - [...] encounter Miscellaneous Notes * Telephone Encounter - Daisy Rosas MA - 05/27/2022 8:32 AM EDT Meds have been approved * Telephone Encounter - Daisy Rosas MA - 05/27/2022 8:32 AM EDTFrom: Alyssa Jamil To: Office of Cristiane Shirley MD Sent: 05/27/2022 7:33 AM EDT Subject: Medication Renewal Request Refills have been requested for the following medications: Other - Amlodipine please send all meds to [facility] [address] [place] [address] - [address] [place], [place] [phone] Preferred pharmacy: [facility] [address] [place] [address] - [address] [place], [place] [phone] Delivery method : Pickup Medication renewals requested in this message routed separately: lisinopriL (PRINIVIL;ZESTRIL) 20 mg Oral Tablet tablet [Cristiane Shirley] Patient Comment: please send to [facility] [address] [place] [address] - [address] [phone] omeprazole (PRILOSEC) 40 mg Oral Capsule, Delayed Release(E.C.) [Jomar Kim] documented in this encounter Plan of Treatment Upcoming Encounters Date Type Department Care Team (Late st Contact Info) Description 07/29/2024 9:00 AM EST Appointment [facility] [address] [place], [place] [id number] Jomar Kim MD [address] [place] [address] documented as of this encounter Goals Goal Patient Goal Type Associated Problems Recent Progress Patient-Stated? Author Blood Pressure < 140/90 Blood Pressure 110/72(04/09 2:44 PM EDT) No Rachel Rogers RMA BMI (Calculated) < 30 General 50.9(2023 2:44 PM EDT) No Rachel Rogers RMA Eat better, exercise, reach an ideal body weight General No Ni Clinton, staff radiographer Healing General On track(12/03 9:18 AM EDT) [...] weekly. ?? Refer to PCP and/or Automobile Mechanic Motor, Vascular Specialist as indicated. ?? Monitor patient [...] has been complete d for the patient 07/14/2021 12:13 PM EDT documented as of this encounter Care Teams Nutrient Management Specialist Relationship Specialty Start Date End Date Cristiane Shirley MD [address] [place] [address] PCP - General Family Medicine 08/20/18 12/29/23 Garett Holt MD Internal Medicine-Gastroenterology 12/22/12 Ruiz Stokes MD [address] [place] [address] Internal Medicine-Cardiovascular Disease 07/25/14 Yenny Schwab MD [address] [id number] Internal Medicine-Rheumatology 12/11/16 documented as of this encounter
--- OUTSIDE RECORDS SUMMARY | 2024-07-22 16:01 | XMS_ITS | Encounter Summary ---
Author Organization [place] [address] Care Team Providers Care Manager Continuous Improvement Name Role Phone Garett Holt MD Unavailable [phone] Ruiz Stokes MD Unavailable [phone] Yenny Schwab MD Unavailable [phone] Cristiane Shirley MD Primary Care Provider Reason for Visit * Reason Onset Date Comments Medication Refill 05/27/2022 Encounter Details Date Type Department Care Team (Late st Contact Info) Description 05/27/2022 Refill [facility] [address] [place] [address] Cristiane Shirley MD [address] [place] [address] Medication Refill Social History Tobacco Use Types [...] Date Recorded PHQ-2 Total Score 0 12/01/2021 [facility] Occupat ional Health - Occupational [...] 9:00 AM EST Appointment [facility] [address] [place], [place] [phone] Jomar Kim MD [address] [place] [address] documented as of this encounter [...] weekly. ?? Refer to PCP and/or Procurement Inspector, Vascular Specialist as indicated. ?? Monitor [...] as of this encounter Visit Diagnoses Diagnosis Essential hypertension Unspecified essential hypertension documented in this encounter Additional Health Concerns Assessment Noted Time A fall risk assessment has been complete d for the patient 07/14/2021 12:13 PM EDT documented as of this encounter Care Teams Manager Continuous Improvement Relationship Specialty Start Date End Date Cristiane Shirley MD [address] [place] [address] PCP - General Family Medicine 08/20/18 12/29/23 Garett Holt MD Internal Medicine-Gastroenterology 12/22/12 Ruiz Stokes MD [address] [place] [address] Internal Medicine-Cardiovascular Disease 07/25/14 Yenny Schwab MD [address]51 [facility] [address] [place] [address] Internal Medicine-Rheumatology 12/11/16 documented as of this encounter
--- OUTSIDE RECORDS SUMMARY | 2024-07-22 16:01 | XMS_ITS | Encounter Summary ---
Author Organization [place] [address] Care Team Providers Care Compounder Name Role Phone Graett Holt MD Unavailable [phone] Ruiz Stokes MD Unavailable [phone] Yenny Schwab MD Unavailable [phone] Cristiane Shirley MD Primary Care Provider [phone] Reason for Visit * Reason Onset Date Comments Medication Refill 04/28/2022 Encounter Details Date Type Department Care Team (Late st Contact Info) Description 04/28/2022 Refill [facility] [address] [place] [address] Cristiane Shirley MD [address] [place] [address] Medication Refill Social History Tobacco Use Types [...] Date Recorded PHQ-2 Total Score 0 12/01/2021 [facility] Occupat ional Health - [...] mouth 2 times daily. 60 Capsule 2 04/29/2022 2 atorvastatin (LIPITOR) 20 mg Oral Tablet Take 1 Tablet by mouth daily. 90 Tablet 2 04/29/2022 3 spironolactone (ALDACTONE) 50 mg Oral TabletIndications: Essential hypertension,Perip heral edema Take 1 Tablet by mouth Twice daily diuretic. Also for blood pressure 60 Tablet 6 04/29/2022 2 documented in this encounter Miscellaneous Notes * Telephone Encounter - Elkin Barfield RMA - 04/29/2022 1:07 PM EDT Refills sent. * Telephone Encounter - Elkin Barfield RMA - 04/29/2022 1:04 PM EDTFrom: Alyssa Jamil To: Office of Cristiane Shirley MD Sent: 04/28/2022 9:32 PM EDT Subject: Medication Renewal Request Refills have been requested for the following medications: Other - Docusate [id number] Cap rel Preferred pharmacy: [place], [place] Delivery method: Pickup Medication renewals requested in this message routed separately: spironolactone (ALDACTONE) 50 mg Oral Tablet [Cristiane J Utter] atorvastatin (LIPITOR) 20 mg Oral Tablet [Cristiane J Utter] docusate sodium (COLACE) 100 mg Oral Capsule [Cristiane J Utter] documented in this encounter Plan of Treatment Upcoming Encounters Date Type Department Care Team (Late st Contact Info) Description 07/29/2024 9:00 AM EST Appointment [facility] [address] [place], [place] [phone] Jomar Kim MD [address] [place] [address] documented as of this encounter Goals Goal Patient Goal Type Associated Problems Recent Progress Patient-Stated? Author Blood Pressure < 140/90 Blood Pressure 110/72(04/09 2:44 PM EDT) No Rachel Rogers RMA BMI (Calculated) < 30 General 50.9(2023 2:44 PM EDT) No Rachel Rogers RMA Eat better, exercise, reach an ideal body weight General No Ni Clinton, teacher drama Healing General On track(12/03 9:18 AM EDT) [...] neuropathy weekly. ?? Refer to PCP and/or Low Pressure Kettle Operator, Vascular Specialist as indicated. ?? Monitor [...] Diagnoses Diagnosis Essential hypertension Unspecified essential hypertension Peripheral edema Edema documented in this encounter Discontinued Medications Medication Sig Discontinue Reason Start Date End Da te spironolactone (ALDACTONE) 50 mg Oral TabletIndications:Essen tial hypertension,Peripheral edema Take 1 Tablet by mouth Twice daily diuretic. Also for blood pressure Reorder 12/01/2021 04/29/2022 atorvastatin (LIPITOR) 20 mg Oral Tablet TAKE 1 TABLET BY MOUTH EVERY DAY Reorder 12/03/2021 04/29/2022 docusate sodium (COLACE) 100 mg Oral Capsule Take 1 Capsule by mouth 2 times daily. Reorder 03/12/2022 04/29/2022 documented as of this encounter Additional Health Concerns Assessment Noted Time A fall risk assessment has been complete d for the patient 07/14/2021 12:13 PM EDT documented as of this encounter Care Teams Compounder Relationship Specialty Start Date End Date Cristiane Shirley MD [address] [place] [id number] PCP - General Family Medicine 08/20/18 12/29/23 Garett Holt MD Internal Medicine-Gastroenterology 12/22/12 Ruiz Stokes MD [address] [place] [address] Internal Medicine-Cardiovascular Disease 07/25/14 Yenny Schwab MD [address] [place] [address] Internal Medicine-Rheumatology 12/11/16 documented as of this encounter
--- OUTSIDE RECORDS SUMMARY | 2024-07-22 16:01 | XMS_ITS | Encounter Summary ---
Author Organization [place] [address] Care Team Providers Care Newspaper Editor Name Role Phone Garett Holt MD Unavailable [phone] Ruiz Stokes MD Unavailable [phone] Yenny Schwab MD Unavailable [phone] Cristiane Shirley MD Primary Care Provider Reason for Visit * Reason Onset Date Comments Medication Refill 07/17/2022 Encounter Details Date Type Department Care Team (Late st Contact Info) Description 07/17/[address] [facility] [address] [place] [address] Cristiane Shirley MD [address] [place] [address] Medication Refill Social History Tobacco Use Types [...] Date Recorded PHQ-2 Total Score 0 12/01/2021 [facility] of Occupat ional Health - [...] Assessment Author Yes 12/01/2021 10:24 AM Rodolfo Dlil MA * Does this person have difficulty [...] 1 Tablet by mouth daily. 90 Tablet 07/19/2022 11/11/2022 metFORMIN (GLUCOPHAGE) 500 mg Oral Tablet Take 1 Tablet by mouth daily (with breakfast). 90 Tablet 07/19/2022 10/22/2022 documented in this encounter Miscellaneous Notes * Telephone Encounter - Lyssa Anne CPhT - 07/19/2022 9:53 AM EST lisinopriL Medication refill requested too soon. Refill request denied. Refills sent on 05/27/22 with Qty: 91 and [address] [facility] did not contact pharmacy. Patient notified via [facility] (if MyChart active). aspirin Medication Refill Protocol not available for this medication. Routed to office staff. metFORMIN Medication Refill Protocol failed due to labs or vitals. tree warden Reason: A1c not on file within 6 months, Lipid panel not on file within 12 months and Serum creatinine not on file within 6 months tree warden Action: Defer to office. Patient needs labwork or vitals completed. Routed to office staff for outreach. This diagnosis was last assessed on 06/08/22. documented in this encounter Plan of Treatment Upcoming Encounters Date Type Department Care Team (Late st Contact Info) Description 07/29/2024 9:00 AM EST Appointment [facility] [address] [place] [id number] Jomar Kim MD [address] [place] [address] documented as of this encounter Goals Goal Patient Goal Type Associated Problems Recent Progress Patient-Stated? Author Blood Pressure < 140/90 Blood Pressure 110/72(04/09 2:44 PM EDT) No Rachel Rogers RMA BMI (Calculated) < 30 General 50.9(2023 2:44 PM EDT) No Rachel Rogers RMA Eat better, exercise, reach an ideal body weight General No Ni Clinton, graves registration specialist Healing General On track(12/03 9:18 AM [...] neuropathy weekly. ?? Refer to PCP and/or Valet Attendant, Vascular Specialist as indicated. ?? Monitor patient [...] te metFORMIN (GLUCOPHAGE) 500 mg Oral Tablet TAKE 1 TAB BY MOUTH DAILY (WITH BREAKFAST). Reorder 12/03/2021 07/17/2022 aspirin 81 mg Oral Tablet, Delayed Release (E.C.) TAKE 1 TABLET BY MOUTH DAILY Reorder 12/03/2021 07/17/2022 documented as of this encounter Additional Health Concerns Assessment Noted Time A fall risk assessment has been complete d for the patient 07/14/2021 12:13 PM EDT documented as of this encounter Care Teams Newspaper Editor Relationship Specialty Start Date End Date Cristiane Shirley MD [address] [place] [address] PCP - General Family Medicine 08/20/18 12/29/23 Garett Holt MD Internal Medicine-Gastroenterology 12/22/12 Ruiz Stokes MD [address] [place] [address] Internal Medicine-Cardiovascular Disease 07/25/14 Yenny Schwab MD 651 [facility] 19 [place] [address] Internal Medicine-Rheumatology 12/11/16 documented as of this encounter
--- OUTSIDE RECORDS SUMMARY | 2024-07-22 16:01 | XMS_ITS | Encounter Summary ---
Author Organization [place] [address] Care Team Providers Care Assisted Living Home Director Name Role Phone Garett Holt MD Unavailable [phone] Ruiz Stokes MD Unavailable [phone] Yenny Schwab MD Unavailable [phone] Cristiane Shirley MD Primary Care Provider [phone] Reason for Visit * Reason Comments Medication Refill Encounter Details Date Type Department Care Team (Late st Contact Info) Description 11/10/2022 Refill [facility] [address] [place] [address] Cristiane Shirley MD [address] [place] [address] Medication Refill Social History Tobacco Use Types [...] Date Recorded PHQ-2 Total Score 0 12/01/2021 [facility] of Occupat ional Health - Occupational Stress [...] tablet by mouth once daily 90 Tablet 11/11/2022 02/10/2023 documented in this encounter Plan of Treatment Upcoming Encounters Date Type Department Care Team (Late st Contact Info) Description 07/29/2024 9:00 AM EST Appointment [facility] [address] [place], [place] [id number] Jomar Kim MD [address] [place] [address] documented as of this encounter [...] neuropathy weekly. ?? Refer to PCP and/or Visual Supervisor, Vascular Specialist as indicated. ?? Monitor [...] (E.C.) Take 1 Tablet by mouth daily. 07/19/2022 11/11/2022 documented as of this encounter Additional Health Concerns Assessment Noted Time A fall risk assessment has been complete d for the patient 07/27/2022 10:00 AM EST documented as of this encounter Care Teams Assisted Living Home Director Relationship Specialty Start Date End Date Cristiane Shirley MD [address] [place] [address] PCP - General Family Medicine 08/20/18 12/29/23 Garett Holt MD Internal Medicine-Gastroenterology 12/22/12 Ruiz Stokes MD [address] [place] [address] Internal Medicine-Cardiovascular Disease 07/25/14 Yenny Schwab MD [address] [place] [address] Internal Medicine-Rheumatology 12/11/16 documented as of this encounter
--- OUTSIDE RECORDS SUMMARY | 2024-07-22 16:01 | XMS_ITS | Encounter Summary ---
Author Organization [place] [address] Care Team Providers Care Assistance Representative Name Role Phone Garett Holt MD Unavailable [phone] Ruiz Stokes MD Unavailable [phone] Yenny Schwab MD Unavailable [phone] Cristiane Shirley MD Primary Care Provider [phone] Reason for Visit * Reason Comments Diabetes Spasms Bilateral Annual Exam Encounter Details Date Type Department Care Team (Late st Contact Info) Description 06/08/2022 10:30 AM EDT Office Visit [facility] [address] [place] [address] Cristiane Shirley MD [address] [place] [address] Annual physical exam (Primary Dx); Need for influenza vaccination; Chronic bronchitis, unspecified chronic bronchitis type (HCC); Type 2 diabetes mellitus without complication, without long-term current use of insulin (HCC); Essential hypertension; Cardiac murmur; PMR (polymyalgia rheumatica) (HCC); Atherosclerosis of aorta (HCC); Muscle spasm; Peripheral edema; Chronic idiopathic constipation; UTI (urinary tract infection), uncomplicated Social History Tobacco Use Types Packs/Day Years [...] Sign Reading Time Taken Comments Blood Pressure 118/82 06/08/2022 10:55 AM EDT Pulse - - Temperature 37.1 ??C (98.7 ??F) 06/08/2022 10:55 AM E DT Respiratory Rate - - Oxygen Saturation - - Inhaled Oxygen Concentration - - Weight 128.4 kg (283 lb) 06/08/2022 10:55 AM EDT Height 162.6 cm (5' 4 ) 06/08/2022 10:55 AM EDT Body Mass Index 48.58 06/08/2022 10:55 AM EDT documented in this encounter Functional [...] Refills Last Filled Start Date End Date ciprofloxacin HCl (CIPRO) 250 mg Oral TabletIndications:U TI (urinary tract infection), uncomplicated Take 1 Tablet by mouth 2 times daily for 10 days. 20 Tablet 06/08/2022 polyethylene glycol (GLYCOLAX) 17 gram/dose Oral PowderIndications:C hronic idiopathic constipation Take 17 g by mouth daily for 30 days. 510 g 3 06/08/2022 2 documented in this encounter Progress Notes * Cristiane Shirley MD - 06/08/2022 10:30 AM EDT Vitals: 06/08/22 1055 BP: 118/82 Temp: 98.7 ??F (37.1 ??C) TempSrc: Temporal Weight: 283 lb (128.4 kg) Height: 5' 4 (1.626 m) SUBJECTIVE: Chief Complaint Patient presents with ??? Diabetes ??? Spasms Bilateral ??? Annual Exam HPI: Medicare Wellness Assessment: Subsequent Annual Medicare Wellness Assessment. Risk Assessments: Fall Risk Assessment Has the patient had any fall with injury in the past year?: (!) Yes (fell before 2020 at home--leg injury--) Has the patient had 2 or more falls in the past year?: (!) Yes (fell March 2021 at home no injury) Is the patient able to sit without assistance?: (!) No (has to use hands for support) Is the patient able to get up without assistance?: (!) No Does the patient have a difficult time ambulating when first getting up?: (!) Yes (mostly balance) Does the patient have rugs or runners in the home?: No Does the patient have grab bars in the bathroom?: (!) No Does the patient have stairs in the home?: No Does the patient have handrails for all inside or outside stairs?: No stairs (In office Assessment Only): Is the patient able to ambulate without assistance/device and with a gait steady?: Yes (In office Assessment Only): TUG test: Time patient going from sitting to standing, walk 10 feet, return to chair and sit. Record time. : Less or equal to 12 seconds Functional Status Assessment Functional Level: self care Functional Mobility Assessment: (!) mobile with cane/walker (cane but will use a walker from time to time) Assessment of transportation needs: (!) dependent on other/public transportation Functional Activities of Daily Living Limitations: (!) bathing/hygiene; dressing; preparing meals; shopping; housework; laundry (from time to time has limitations) Bladder: Do you have issues with your bladder, such as urgency or leaking urine?: No issues Activities of Daily Living Assistive Device Assessment Assistive Devices: None Osteoporosis Screening Assessment Has the patient had a DEXA scan in the past 2 years?: (!) No Results for orders placed during the hospital encounter of 01/30/17 DX BONE DENSITY AXIAL SKELETON Narrative Indication: The patient is presently being monitored while on treatment and requires a bone density assessment. Study was performed on beModel APEX 5. Bone Density: Region BMD T-score Z-score AP [...] do youhave any unusual or worrisome pains?: (!) Yes (pain above hips and vaginal pain when urinating and soreness in chest from fall--pt states it is not chest pain) Opiate Screening PHQ Depression Screening Results Little interest or pleasure in doing things: 0 Feeling down, depressed, or hopeless: 0 PHQ-2 Total Score: 0 PHQ-9 Total Score: 0 Advanced Directive Evaluation Does the patient have an Advance Directive?: (!) Yes, but not on file Advance Care Planning Guide Given?: (!) No (For Dementia Screening below can use either AD-8 or Mini Cog. Doesn't require both.) AD-8 Dementia Screening tool results Problems with judgement: 0 Less interest in hobbies/activities: (!) 1 Repeats the same things over and over: 0 Trouble learning how to use a tool, appliance or gadget: 0 Forgets correct month or year: 0 Trouble handling complicated financial affairs: NA, don't know (spouse takes care of finances) Trouble remembering appointments: 0 Daily problems with thinking and/or memory: 0 Total AD8 score:: 1 Mini Cog Dementia Screening tool results Number of words immediately repeated back correctly.: 3 Clock Test: Please draw a clock face and draw in hands to show 10 minutes past eleven o'clock.: correct hand placement, 1 pt; correct number placement, 1 pt Number of Words Recalled: 3 Dementia: Negative Patient Instructions AWV findings and Plan of Care: Recommendations as part of the Personal Plan of Care based on risk screening assessments are: Fall Risk Assessment: Fall Risk Assessment: negative - re-assess in 1 year Functional Status/Social Determinates of Health: stable, no issues, re-assess in 1 year uses walker Depression Screening: negative - re-assess in 1 [...] visit. If you have a power of civil rights attorney orsurrogate, we should also have a [...] and will show as resolved in your [facility] account soon. Health Maintenance Due Topic Date Due ??? Hepatitis B Vaccine (1 of 3 - 3-dose series) Never done ??? Breast Cancer Screening 11/14/2017 ??? Diabetic Eye Exam 02/11/2021 ??? COVID-19 Vaccine (3 - Booster for Moderna series) 03/11/2021 ??? Hemoglobin A1c 08/26/2021 ??? Zoster (2 of 2) 01/26/2022 ??? Lipids 02/24/2022 As part of today's visit the components [...] provided to the patient digitally through their [facility] account or with a paper copy if the patient doesn't have an active MyChart Account. A copy of today's progress note with recommendations below is alsoavailable electronically for patients with an active [facility] account per the Federal Cures Act. TheAVS also contains additional patient education if appropriate on topics common to wellness and their plan of care. History Reviewed: No exam data present Results for orders placed or performed in visit on 06/08/22 SEP URINALYSIS POC Result Value Ref Range UA Color POC Yellow Color UA Appear POC Clear Clear UA Gluc POC Negative Negative mg/dL UA Bili POC Negative Negative UA Ketones POC Negative Negative mg/dL UA SG POC 1.020 1.001 - 1.035 no units UA Blood POC Trace-Lysed (A) Negative UA pH POC 5.5 5.0 - 8.0 pH UA Protein POC Negative Negative mg/dL UA Urobilinogen POC 0.2 0.2, 1.0 UA Nitrite POC Negative Negative UA Leuk Est POC Trace (A) Negative POCT URINE MICROALBUMIN TELCOR Result Value Ref Range Microalb, Ur 10 mg/L Creatinine Urine 50 mg/dL Microalb/Veneer Measurer. Ratio <30 <30 mg/g Patient Active Problem List Diagnosis ??? Osteoarthrosis, unspecified whether generalized or localized, unspecified site ??? Ventral hernia ??? HAMIDA (obstructive sleep apnea) ??? History of endometrial cancer ??? Temporal arteritis (HCC) ??? Type 2 diabetes mellitus without complication (HCC) ??? Obesity, Class III, BMI 40-49.9 (morbid obesity) (HCC) ??? Atherosclerosis of aorta (HCC) ??? PMR (polymyalgia rheumatica) (HCC) ??? Incisional hernia, incarcerated ??? Periumbilical abdominal pain ??? Epigastric pain Past Medical History: Diagnosis Date ??? Anemia [...] BIOPSY ; Surgeon: Christa Chavez MD; Location: [facility]; Service: General ??? CARDIAC CATHETERIZATION 04/2015 ??? CHOLECYSTECTOMY 1989 ??? COLONOSCOPY ??? COLONOSCOPY 02/17/2013 Surgeon: Garett Holt MD; Location: [facility]; Service: ??? DENTAL SURGERY upper and lower teeth removed ??? UPPER GASTROINTESTINAL ENDOSCOPY ??? UPPER GASTROINTESTINAL ENDOSCOPY 02/17/2013 Surgeon: Garett Holt MD; [facility]: [facility]; Service: ??? UPPER GASTROINTESTINAL ENDOSCOPY N/A 07/26/2020 ESOPHAGOGASTRODUODENOSCOPY with biopsy; Surgeon: Jomar Kim MD; Location: [facility]; Service: Endoscopy ??? VENTRAL HERNIA REPAIR N/A 04/18/2020 DAVINCI ROBOTIC VENTRAL HERNIA REPAIR WITH MESH ; Surgeon: Regan Butts MD; Location: [facility]; Service: General Allergies Allergen Reactions ??? Spironolactone Nausea And Vomiting and Myalgia ??? Amitriptyline Nausea And Vomiting ??? Amoxil [Amoxicillin] Hives ??? Clarithromycin hives ??? Clindamycin Nausea Only ??? Egg Nausea Only ??? Naproxen Rash ??? Nexium [Esomeprazole Magnesium] Hives and Rash Blisters in Mouth Current Outpatient Medications on File Prior to Visit Medication Sig Dispense Refill ??? albuterol (PROVENTIL) 2.5 mg /3 mL (0.083 %) Inhl Solution for Nebulization Take 3 mL by nebulization every 4 hours as needed for Wheezing. 1 box 6 ??? amLODIPine (NORVASC) 10 mg Oral Tablet Take 1 Tablet by mouth daily. 91 Tablet 1 ??? aspirin 81 mg Oral Tablet, Delayed Release (E.C.) TAKE 1 TABLET BY MOUTH DAILY 90 Tablet 0 ??? atorvastatin (LIPITOR) 20 mg Oral Tablet Take 1 Tablet by mouth daily. 90 Tablet 2 ??? Blood-Glucose Meter [facility] Please fill with what her ins will cover 1 Kit 0 ??? CALCIUM ORAL Take 1 Tab by mouth daily. ??? cholecalciferol, vitamin D3, (VITAMIN D3) 25 mcg (1,000 unit) Oral Tablet Take 1 Tab by mouth daily. 30 Tab 11 ??? docusate sodium (COLACE) 100 mg Oral Capsule Take 1 Capsule by mouth 2 times daily. 60 Capsule 2 ??? fluticasone propionate (FLONASE) 50 mcg/actuation Nasl [place], Suspension Use 1 spray in each nostril once daily 16 g 2 ??? fUROsemide (LASIX) 40 mg Oral Tablet One tab daily and may take an extra if needed. 60 Tab 6 ??? lisinopriL (PRINIVIL;ZESTRIL) 20 mg Oral Tablet tablet Take 1 Tablet by mouth daily. 91 Tablet 1 ??? loratadine (CLARITIN) 10 mg Oral Tablet Take 1 tablet by mouth once daily 63 Tablet 0 ??? metFORMIN (GLUCOPHAGE) 500 mg Oral Tablet TAKE 1 TAB BY MOUTH DAILY (WITH BREAKFAST). 90 Tablet0 ??? Nebulizer Accessories [facility] Nebulizer accessories 1 Kit 0 ??? oxybutynin (DITROPAN-XL) 10 mg Oral Tablet Extended Rel 24 hr Take 1 Tablet by mouth daily. (Patient not taking: Reported on 06/08/2022) 90 Tablet 2 No current facility-administered medications on file prior to visit. Social History Socioeconomic History ??? Marital status: Spouse name: None ??? Number of children: 2 ??? Years of education: None ??? Highest education level: None Occupational History ??? Occupation: disabled Tobacco Use ??? Smoking status: Former Smoker Packs/day: 1.50 Years: 12.00 Pack years: 18.00 Types: Cigarettes Start date: 09/08/1971 Quit date: 09/07/1984 Years since quittin.7 ??? Smokeless tobacco: Never Used Vaping Use ??? Vaping Use: Never used Substance and Sexual Activity ??? Alcohol use: No Alcohol/week: 0.0 oz ??? Drug use: No ??? Sexual activity: Yes Partners: Male control/protection: Post-menopausal Family History Problem Relation Age of Onset ??? Heart Disease Father ??? Cataracts Father ??? Diabetes Father ??? Cancer Maternal Grandmother ??? Colon Cancer Maternal Grandmother ??? Anesth Problems Neg Hx Immunization History Administered Date(s) Administered ??? Influenza Virus Vaccine Quadrivalant, Flublok 06/10/2019 ??? Moderna SARS-CoV-2 Vaccine 12+ Yrs (Light blue border) 12/17/2020, 01/14/2021 ??? Pneumococcal Polysaccharide 23 Valent 11/15/2015, 12/01/2021 ??? Quadrivalent Influenza High Dose 07/14/2021, 06/08/2022 ??? Tdap 01/06/2013 ??? Zoster Recombinant 12/01/2021 Health Maintenance Topic Date Due ??? Hepatitis B Vaccine (1 of 3 - 3-dose series) Never done ??? Breast Cancer Screening 11/14/2017 ??? Diabetic Eye Exam 02/11/2021 ??? COVID-19 Vaccine (3 - Booster for Moderna series) 03/11/2021 ??? Hemoglobin A1c 08/26/2021 ??? Zoster (2 of 2) 01/26/2022 ??? Lipids 02/24/2022 ??? Wellness Exam Medicare 07/14/2022 ??? Fall Risk Assessment 12/01/2022 ??? Pneumococcal Vaccine 65+ (2 - PCV) 12/01/2022 ??? DTaP/TDaP/Td (2 - Td or Tdap) 01/06/2023 ??? Colon Cancer Screening 02/17/2023 ??? Influenza Vaccine Completed ??? Bone Density Screening Completed ??? Hepatitis C Screening Completed Patient Care Team: Cristiane Shirley MD as PCP - General (Family Medicine) Garett Holt MD (Internal Medicine-Gastroenterology) uRiz Stokes MD (Internal Medicine-Cardiovascular Disease) Yenny Schwab MD (Internal Medicine-Rheumatology) Additional issues addressed today: Spasms This is a new problem. The current episode started more than 1 week ago. The onset was gradual. Theproblem occurs frequently. The problem has been gradually worsening. The pain is associated with anunknown factor. The pain is present in the lower extremities. Site of pain is localized in muscle. The pain is similar to prior episodes. The pain is moderate. The symptoms are not relieved by rest. The symptoms are aggravated by movement and activity. Associated symptoms include blurred vision andback pain. Pertinent negatives include no abdominal pain, no diarrhea, no nausea and no cough. Swelling is present on the feet. Urine output has been normal. There were no sick contacts. Recently, medical care has been given by the PCP. Services received include medications given. Diabetes: Alyssa following up today for diabetes. Current symptoms/problems include visual disturbances. Current monitoring regimen: office lab tests - 3 times yearly Home blood sugar records: does not check Any episodes of hypoglycemia? no On insulin? No Weight trend: Body mass index is 48.58 kg/m??. Wt Readings from Last 3 Encounters: 06/08/22 283 lb (128.4 kg) 12/01/21 250 lb (113.4 kg) 11/24/21 250 lb (113.4 kg) A1c trend: Lab Results Component Value Date HGBA1C 5.6 02/24/2021 HGBA1C 5.6 05/25/2020 HGBA1C 6.3 (H) 11/09/2019 Renal trend: Lab Results Component Value Date GFRAFRAM 96 02/24/2021 GFRAFRAM 104 05/18/2020 GFRAFRAM 113 04/27/2020 Lab Results Component Value Date GFRNONAFRAM 83 02/24/2021 GFRNONAFRAM 90 05/18/2020 GFRNONAFRAM 98 04/27/2020 Lab Results Component Value Date GFRCKDEPI 96 11/24/2021 Lipid trend: Lab Results Component Value Date LDLCALC 81 02/24/2021 Review of Systems Constitutional: Negative for fatigue and fever. HENT: Negative. Eyes: Positive for blurred vision. Respiratory: Negative for cough and wheezing. Cardiovascular: Negative. Gastrointestinal: Negative for abdominal pain, diarrhea and nausea. Endocrine: Negative. Genitourinary: Negative. Musculoskeletal: Positive for arthralgias, back pain, gait problem and muscle spasms. Hematological: Negative. Psychiatric/Behavioral: Negative. OBJECTIVE: Physical Exam Vitals and nursing note reviewed. HENT: Head: Normocephalic. Cardiovascular: Rate and Rhythm: Normal rate. Heart sounds: No murmur heard. Pulmonary: Effort: Pulmonary effort is normal. Breath sounds: No wheezing. Abdominal: Palpations: Abdomen is soft. Tenderness: There is no abdominal tenderness. Skin: General: Skin is warm. Neurological: General: No focal deficit present. Mental Status: She is alert. Psychiatric: Mood and Affect: Mood normal. Assessment Diagnoses and all orders for this visit: Annual physical exam Need for influenza vaccination - QUADRIVALENT FLUZONE HIGH DOSE Chronic bronchitis, unspecified chronic bronchitis type (HCC) (Chronic) stable Type 2 diabetes mellitus without complication, without long-term current use of insulin (HCC) (Chronic) - COMPREHENSIVE METABOLIC PANEL; Future - TSH REFLEX; Future - CBC WITH DIFF; Future - VITAMIN B12/ FOLIC ACID; Future - HEMOGLOBIN A1C; Future - LIPID SCREEN; Future - SEP URINALYSIS POC - POCT URINE MICROALBUMIN TELCOR stable Essential hypertension Cardiac murmur PMR (polymyalgia rheumatica) (HCC) (Chronic) stable Atherosclerosis of aorta (HCC) (Chronic) stable Muscle spasm Peripheral edema Chronic idiopathic constipation - polyethylene glycol (GLYCOLAX) 17 gram/dose Oral Powder; Take 17 g by mouth daily for 30 days. Dispense: 510 g; Refill: 3 UTI (urinary tract infection), uncomplicated - ciprofloxacin HCl (CIPRO) 250 mg Oral Tablet; Take 1 Tablet by mouth 2 times daily for 10 days. Dispense: 20 Tablet; Refill: 0 iris was ordered but was not completed as patient left Above problems were discussed with patient and all are stable except otherwise noted. Continue medications as prior. Refills done as requested. Blood work done. Will adjust medications by phone as needed based on lab results and as noted. Follow up for any changes and as directed Educated patient regarding the care plan and instructions listed on the After Visit Summary [AVS] for today's visit. The patient verbalized full understanding of the care plan and instructions given on the AVS for today's visit. documented in this encounter Plan of Treatment Upcoming Encounters Date Type Department Care Team (Late st Contact Info) Description 07/29/2024 9:00 AM EST Appointment [facility] [address] [place] [address] Jomar iKm MD [address] [place], [place] [id number] documented as of this encounter Goals Goal Patient Goal Type Associated Problems Recent Progress Patient-Stated? Author Blood Pressure < 140/90 Blood Pressure 110/72(04/09 2:44 PM EDT) No Rachel Rogers RMA BMI (Calculated) < 30 General 50.9(2023 2:44 PM EDT) No Rachel Rogers RMA Eat better, exercise, reach an ideal body weight General No Ni Clinton, senior supply chain analyst Healing General On track(12/03 9:18 AM EDT) [...] neuropathy weekly. ?? Refer to PCP and/or Pediatric Dental Assistant, Vascular Specialist as indicated. ?? Monitor patient compliance with wound care, diabetes management and proper offloading. Patients abdominal discomfort will improve or resolve by next follow up call from RN CC. General Not on track(03/09 11:41 AM EDT) No Joseyln Chance RN Stay Tobacco Free Lifestyle On track(02/07 10:23 AM EDT) No Wendy Espinoza LPN HEMOGLOBIN A1C < 7.0 Result Component 5.6( 024 3:04 PM EST) No Rachel Rogers RMA documented as of this encounter Procedures Procedure Name Priority Date/Time Associated Diagnosis Comments POCT URINE MICROALBUMIN Routine 06/08/2022 11:44 AM EDT Type 2 diabetes mellitus without complication, without long-term current use of insulin (HCC) SEP URINALYSIS POC Routine 06/08/2022 11 :42 AM EDT Type 2 diabetes mellitus without complication, without long-term current use of insulin (HCC) documented in this encounter Results * LIPID SCREEN (07/27/2022 10:35 AM EST) Cholesterol 148 <200 mg/dL 07/27/2022 3:36 PM EST [facility] Comment: < 200 ?Desirable 200 - 239 ? Borderline High >= 240 ?High Triglyceride 87 <150 mg/dL 07/27/2022 3:36 PM EST [facility] Comment: < 150 ? Normal 150 - 199 ?Borderline High 200 - 499 ?High ??>= 500 ? Very High HDL 48 >=40 mg/dL 07/27/2022 3:36 PM EST [facility] Comment: ??> 60 ?Optimal 40 - 60 ?Acceptable ?? < 40 ?Low LDL Calculated 83 <100 mg/dL 07/27/2022 3:36 PM EST [facility] [employer] [facility] Comment: < 100 ?Optimal 100 - 129 ? Near or above optimal 130 - 159 ? Borderline High 160 - 189 ? High >= 190 ?Very High Non-HDL-C Calculated 100 <=129 mg/dL 07/27/2022 3:36 PM EST [employer] [facility] Comment: <130 ?Desirable 130-159 Above Desirable 160-189 Borderline High 190-219 High >= 220 ??Very High Fasting Specimen? Yes None 022 3:36 PM EST [facility] Blood VENOUS BLOOD / Unknown Venipuncture / Unknown 07/27/2022 10:35 AM EST 07/27/2022 10:35 AM EST us Cristiane Shirley MD CHEMISTRY ORDERABLES Final Res ult [facility] [employer] [facility] [address] , [place] [address] [facility] [address] [place] [address] * (ABNORMAL) HEMOGLOBIN A1C (07/27/2022 10:35 AM EST) Hgb A1C 6.1(H) 4.2 - 5.6 % 07/27/2022 6:38 PM EST [facility] [employer] [facility] Est. Avg Glucose 128 mg/dL 07/27/2022 6:38 PM EST [facility] [employer] [facility] Blood VENOUS BLOOD / Unknown Venipuncture / Unknown 07/27/2022 10:35 AM EST 07/27/2022 10:35 AM EST Narrative [facility] [employer] [facility] - 07/27/2022 6:38 PM EST REFERENCE RANGE: Normal: 4.0-5.6% Pre-diabetes: 5.7-6.4% Provisional diagnosis of diabetes: >6.4% Hgb F>10% and anything which shortens red cell survival, such as hemolytic anemia, or unstable hemoglobin variants such as HbSS, HbSC, or HbCC, will lower the HbA1c value associated with a given level of glycemic control. ? us Cristiane Shirley MD CHEMISTRY ORDERABLES Final Res ult Performing Organization Address [facility]/ZIP Co de Phone Number [facility] [address] , [place] [address] * (ABNORMAL) VITAMIN B12/ FOLIC ACID (07/27/2022 10:35 AM EST) Pathologist [facility] [place] Vitamin B12 1,419(H) 232 - 1,245 pg/mL 07/27/2022 3:50 PM EST [facility] Folate >16.00 >=4.80 ng/mL 07/27/2022 3:50 PM EST [facility] Blood VENOUS BLOOD / Unknown Venipuncture / Unknown 07/27/2022 10:35 AM EST 07/27/2022 10:35 AM EST Narrative [facility] - 07/27/2022 3:50 PM EST Ingestion of min doses of biotin (>5 mg/day) taken within 8 hours of drawing blood sample can interfere with this immunoassay test. us Cristiane Shirley MD CHEMISTRY ORDERABLES Final Res ult Performing Organization Address [facility]/ZIP Co de Phone Number P[facility] [employer] [address] , [place] [address] * (ABNORMAL) CBC WITH DIFF (07/27/2022 10:35 AM EST) Pathologist [facility] [place] WBC 9.6 3.7 - 10.3 x10(3)/mcL 07/27/2022 3:16 PM EST [facility] RBC 3.73(L) 3.90 - 5.20 x10(6)/mcL 07/27/2022 3:16 PM EST [facility] Hgb 10.4(L) 11.2 - 15.7 g/dL 07/27/2022 3:16 PM EST [facility] Hct 34.2 34.0 - 45.0 % 07/27/2022 3:16 PM EST [facility] MCV 91.7 80.0 - 100.0 fL 07/27/2022 3:16 PM EST [facility] MCH 27.9 26.0 - 34.0 pg 07/27/2022 3:16 PM EST [facility] MCHC 30.4(L) 30.7 - 35.5 g/dL 07/27/2022 3:16 PM EST [facility] RDW 14.5 <=14.9 % 07/27/2022 3:16 PM EST [facility] Platelet 252 155 - 369 x10(3)/mcL 07/27/2022 3:16 PM EST [facility] MPV 10.1 8.8 - 12.5 fL 07/27/2022 3:16 PM EST [facility] Neut Percent 70.1 % 07/27/2022 3:16 PM EST [facility] Comment:Neutrophils equals s egs plus bands Imm Gran% 0.4 % 07/27/2022 3:16 PM EST [facility] Comment:Automated count of m etamyelocytes, myelocytes and promyelocytes. Lymph Percent 18.3 % 07/27/2022 3:16 PM EST [facility] [place] Percent 8.8 % 07/27/2022 3:16 PM EST [facility] Eos Percent 1.9 % 07/27/2022 3:16 PM EST [facility] [facility] Baso Percent 0.5 % 07/27/2022 3:16 PM EST [facility] Neut # 6.7(H) 1.6 - 6.1 x10(3)/mcL 07/27/2022 3:16 PM EST [facility] Comment:Neutrophils equals s egs plus bands IMMGRAN# 0.0 0.0 - 0.1 x10(3)/mcL 07/27/2022 3:16 PM EST [facility] Comment:Automated count of m etamyelocytes, myelocytes and promyelocytes. An absolute IG <0.1 is reported as 0.0. Lymph # 1.8 1.2 - 3.9 x10(3)/mcL 07/27/2022 3:16 PM EST [facility] [place] # 0.8 0.3 - 0.9 x10(3)/mcL 07/27/2022 3:16 PM EST [facility] Eos# 0.2 0.0 - 0.5 x10(3)/mcL 07/27/2022 3:16 PM EST [facility] Baso # 0.1 0.0 - 0.1 x10(3)/mcL 07/27/2022 3:16 PM EST [facility] Blood VENOUS BLOOD / Unknown Venipuncture / Unknown 07/27/2022 10:35 AM EST 07/27/2022 10:35 AM EST us Cristiane Shirley MD HEMATOLOGY ORDERABLES Final Re sult Performing Organization Address [facility] de Phone Number [facility], [address] , [place] [address] * TSH REFLEX (07/27/2022 10:35 AM EST) Pathologist [facility] [place] TSH Reflex 1.500 0.270 - 4.200 mcIU/mL 07/27/2022 5:36 PM EST [facility] Blood VENOUS BLOOD / Unknown Venipuncture / Unknown 07/27/2022 10:35 AM EST 07/27/2022 10:35 AM EST Narrative [facility] - 07/27/2022 5:36 PM EST Ingestion of min doses of biotin (>5 mg/day) taken within 8 hours of drawing blood sample can interfere with this immunoassay test. us Cristiane Shirley MD CHEMISTRY ORDERABLES Final Res ult Performing Organization Address [facility] de Phone Number [facility] [employer] , [place] [address] * (ABNORMAL) COMPREHENSIVE METABOLIC PANEL (07/27/2022 10:35 AM EST) Sodium 141 136 - 145 mmol/L 07/27/2022 3:36 PM EST [facility] Potassium 4.7 3.5 - 5.0 mmol/L 07/27/2022 3:36 PM EST [facility] Chloride 106 98 - 107 mmol/L 07/27/2022 3:36 PM EST [facility] Total CO2 26 22 - 29 mmol/L 07/27/2022 3:36 PM EST [facility] Anion Gap 9 7 - 16 mmol/L 07/27/2022 3:36 PM EST [facility] Calcium 9.9 8.8 - 10.4 mg/dL 07/27/2022 3:36 PM EST [facility] Glucose Lvl 102(H) 82 - 100 mg/dL 07/27/2022 3:36 PM EST [facility] BUN 25(H) 8 - 23 mg/dL 07/27/2022 3:36 PM EST [facility] Creatinine 0.81 0.51 - 1.30 mg/dL 07/27/2022 3:36 PM EST [facility] Albumin 4.1 3.2 - 4.6 gm/dL 07/27/2022 3:36 PM EST [facility] Total Protein 7.5 6.4 - 8.3 gm/dL 07/27/2022 3:36 PM EST [facility] Bili Total 0.2 0.1 - 1.3 mg/dL 07/27/2022 3:36 PM EST [facility] ALT 14 <=41 U/L 07/27/2022 3:36 PM EST [facility] AST 16 <=40 U/L 07/27/2022 3:36 PM EST [facility] Alk Phos 80 36 - 123 U/L 07/27/2022 3:36 PM EST [facility] eGFR (CKD-EPIcr 2020) 80 >=60 mL/min/1.7 3 m2 07/27/2022 3:36 PM EST [facility] Comment:Estimated GFR was ca lculated using the CKD-EPIcr (2020) equation refit without race. The equation is recommended by the National Kid[employer] - [place] [employer]ph[employer] Task Force. Blood VENOUS BLOOD / Unknown Venipuncture / Unknown 07/27/2022 10:35 AM EST 07/27/2022 10:35 AM EST us Cristiane Shirley MD CHEMISTRY ORDERABLES Final Res ult Performing Organization Address City/[facility]/ZIP Co de Phone Number [facility] [address] [facility], [place] [address] [facility] [address] [place] [address] * POCT URINE MICROALBUMIN TELCOR (06/08/2022 11:44 AM EDT) Microalb, Ur 10 mg/L 06/08/2022 11:46 AM EDT [facility] Creatinine Urine 50 mg/dL 06/08/2022 11:46 AM EDT [facility] Microalb/Veneer Measurer. Ratio <30 <30 mg/g 06/08/2022 11:46 AM EDT [facility] Urine URINE SPECIMEN COLLECTION / Unknown 06/08/2022 11:44 AM EDT 06/08/2022 11:46 AM EDT Cristiane Shirley MD POINT OF CARE TEST ORDERABLES Final Result Performing Organization Address [facility] Co de Phone Number [facility] [address] [place] [address] * (ABNORMAL) SEP URINALYSIS POC (06/08/2022 11:42 AM EDT) UA Color POC Yellow Color 06/08/2022 11:44 AM EDT [facility] [place] [facility] Appear POC Clear Clear 06/08/2022 11:44 AM EDT [facility] Gluc POC Negative Negative mg/dL 06/08/2022 11:44 AM EDT [facility]A Bili POC Negative Negative 06/08/2022 11:44 AM EDT [facility]A Ketones POC Negative Negative mg/dL 06/08/2022 11:44 AM EDT [facility] [place] SG POC 1.020 1.001 - 1.035 no units 06/08/2022 11:44 AM EDT [facility] [place] [facility] Blood POC Trace-Lysed( A) Negative 06/08/2022 11:44 AM EDT [facility] pH POC 5.5 5.0 - 8.0 pH 06/08/2022 11:44 AM EDT [facility] Protein POC Negative Negative mg/dL 06/08/2022 11:44 AM EDT [facility] UA Urobilinogen POC 0.2 0.2, 1.0 06/08/2022 11:44 AM EDT [facility] UA Nitrite POC Negative Negative 06/08/2022 11:44 AM EDT [facility] UA Leuk Est POC Trace(A) Negative 11:44 AM EDT [facility] Urine URINE SPECIMEN COLLECTION / Unknown 06/08/2022 11:42 AM EDT 06/08/2022 11:44 AM EDT us Cristiane Shirley MD POINT OF CARE TEST ORDERABLES Final Result [address] [address] documented in this encounter Visit Diagnoses Diagnosis Annual physical exam- Primary Routine general medical examination at a health care facility Need for influenza vaccination Need for prophylactic vaccination and inoculation against influenza Chronic bronchitis, unspecified chronic bronchitis type (HCC) Type 2 diabetes mellitus without complication, without long-term current use of insulin (HCC) Essential hypertension Unspecified essential hypertension Cardiac murmur Undiagnosed cardiac murmurs PMR (polymyalgia rheumatica) (HCC) Polymyalgia rheumatica Atherosclerosis of aorta (HCC) Atherosclerosis of aorta Muscle spasm Spasm of muscle Peripheral edema Edema Chronic idiopathic constipation Unspecified constipation UTI (urinary tract infection), uncomplicated Urinary tract infection, site not specified documented in this encounter Discontinued Medications Medication Sig Discontinue Reason Start Date End Da te lubiprostone (AMITIZA) 24 mcg Oral Capsule TAKE ONE CAPSULE BY MOUTH TWICE A DAY. THIS REPLACES LINZESS. DELETE-Therapy completed 05/03/2020 06/08/2022 spironolactone (ALDACTONE) 50 mg Oral TabletIndications:Esse ntial hypertension,Periphera l edema Take 1 Tablet by mouth Twice daily diuretic. Also for blood pressure Side effects 04/29/2022 06/08/2022 documented as of this encounter Orders Immunization/Injection Count Last Ordered Date First Ordered Date QUADRIVALENT FLUZONE HIGH DOSE 1 06/08/2022 documented in this encounter Additional Health Concerns Assessment Noted Time A fall risk assessment has been complete d for the patient 07/14/2021 12:13 PM EDT documented as of this encounter Care Teams Assistance Representative Relationship Specialty Start Date End Date Cristiane Shirley MD [address] [place] [address] PCP - General Family Medicine 08/20/18 12/29/23 Garett Holt MD Internal Medicine-Gastroenterology 12/22/12 Ruiz Stokes MD [address] [place] [address] Internal Medicine-Cardiovascular Disease 07/25/14 Yenny Schwab MD [address] [facility] Building [address] [place] [address] Internal Medicine-Rheumatology 12/11/16 documented as of this encounter
--- OUTSIDE RECORDS SUMMARY | 2024-07-22 16:01 | XMS_ITS | Encounter Summary ---
Author Organization [place] [address] Care Team Providers Care Fleet Salesperson Name Role Phone Garett Holt MD Unavailable [phone] Ruiz Stokes MD Unavailable [phone] Yenny Schwab MD Unavailable [phone] Cristiane Shirley MD Primary Care Provider Encounter Details Date Type Department Care Team (Late st Contact Info) Description 08/05/2022 Orders Only [facility] [address] [place] [address] Elkin Barfield RMA Type 2 diabetes mellitus without complication, without [...] Date Recorded PHQ-2 Total Score 0 12/01/2021 [facility] - Occupational Stress [...] Refills Last Filled Start Date End Date Lancets [facility] MiscIndications:Typ e 2 diabetes mellitus without complication, without long-term current use of insulin (HCC) 1 Each by [facility].(Non-Dr ug; Combo Route) route 2 times daily. Per formulary. Dx: E11.9 100 Each 11 08/05/2022 Blood Sugar Diagnostic [facility] StripIndications:Ty pe 2 diabetes mellitus without complication, without long-term current use of insulin (HCC) 1 Strip by [facility].(Non-Dr ug; Combo Route) route 2 times daily. Per formulary. Dx: E11.9 100 Each 11 08/05/2022 Blood-Glucose Meter [facility] KitIndications:Type 2 diabetes mellitus without complication, without long-term current use of insulin (HCC) Per formulary. Dx. E11.9 1 Kit 08/05/2022 documented in this encounter Plan of Treatment [...] neuropathy weekly. ?? Refer to PCP and/or Nursing Clinical Director, Vascular Specialist as indicated. ?? Monitor [...] include lancets and strips. Dx. E11.9 Reorder 07/30/2022 08/05/2022 documented as of this encounter Additional Health Concerns Assessment Noted Time A fall risk assessment has been complete d for the patient 07/27/2022 10:00 AM EST documented as of this encounter Care Teams Fleet Salesperson Relationship Specialty Start Date End Date Cristiane Shirley MD [address] [place] [address] PCP - General Family Medicine 08/20/18 12/29/23 Garett Holt MD Internal Medicine-Gastroenterology 12/22/12 Ruiz Stokes MD [address] [place] [address] Internal Medicine-Cardiovascular Disease 07/25/14 Yenny Schwab MD [address] [facility] [address] [place] [address] Internal Medicine-Rheumatology 12/11/16 documented as of this encounter
--- OUTSIDE RECORDS SUMMARY | 2024-07-22 16:01 | XMS_ITS | Encounter Summary ---
Author Organization [place] [address] Care Team Providers Care Food Concession Manager Name Role Phone Garett Holt MD Unavailable [phone] Ruiz Stokes MD Unavailable [phone] Yenny Schwab MD Unavailable [phone] Cristiane Shirley MD Primary Care Provider Reason for Visit * Reason Onset Date Comments Medication Refill 08/19/2022 Encounter Details Date Type Department Care Team (Late st Contact Info) Description 08/19/2022 Refill [facility] [address] [place] [address] Cristiane Shirley MD [address] [place] [address] Medication Refill Social History Tobacco Use Types [...] Date Recorded PHQ-2 Total Score 0 12/01/2021 [facility] - [...] mouth 2 times daily. 60 Capsule 2 08/19/2022 3 documented in this encounter Plan of Treatment Upcoming Encounters Date Type Department Care Team (Late st Contact Info) Description 07/29/2024 9:00 AM EST Appointment [facility] [address] [place], [place] [id number] Jomar Kim MD [address] [place] [address] documented as of this encounter Goals Goal Patient Goal Type Associated Problems Recent Progress Patient-Stated? Author Blood Pressure < 140/90 Blood Pressure 110/72(04/09 2:44 PM EDT) No Rachel Rogers RMA BMI (Calculated) < 30 General 50.9(2023 2:44 PM EDT) No Rachel Rogers RMA Eat better, exercise, reach an ideal body weight General No Ni Clintno, training representative Healing General On track(12/03 9:18 AM EDT) [...] neuropathy weekly. ?? Refer to PCP and/or Char Filter Operator Helper, Vascular Specialist as indicated. ?? Monitor patient [...] Capsule by mouth 2 times daily. Reorder 04/29/2022 08/19/2022 documented as of this encounter Additional Health Concerns Assessment Noted Time A fall risk assessment has been complete d for the patient 07/27/2022 10:00 AM EST documented as of this encounter Care Teams Food Concession Manager Relationship Specialty Start Date End Date Cristiane Shirley MD [address] [place] [address] PCP - General Family Medicine 08/20/18 12/29/23 Garett Holt MD Internal Medicine-Gastroenterology 12/22/12 Ruiz Stokes MD [address] [place] [id number] Internal Medicine-Cardiovascular Disease 07/25/14 Yenny Schwab MD [address] [place] [address] Internal Medicine-Rheumatology 12/11/16 documented as of this encounter
--- OUTSIDE RECORDS SUMMARY | 2024-07-22 16:01 | XMS_ITS | Encounter Summary ---
Author Organization [place] [address] Care Team Providers Care Brick Burner Name Role Phone Garett Holt MD Unavailable [phone] Ruiz Stokes MD Unavailable [phone] Yenny Schwab MD Unavailable [phone] Cristiane Shirley MD Primary Care Provider Reason for Visit * Reason Onset Date Comments Medication Refill 09/20/2022 Encounter Details Date Type Department Care Team (Late st Contact Info) Description 09/20/2022 Refill [facility] [address] [place] [address] Cristiane Shirley MD [address] [place] [address] Medication Refill Social History Tobacco Use Types [...] Date Recorded PHQ-2 Total Score 0 12/01/2021 [facility] - Occupational [...] mouth 2 times daily. 60 Capsule 2 09/20/2022 3 documented in this encounter Plan of Treatment Upcoming Encounters Date Type Department Care Team (Late st Contact Info) Description 07/29/2024 9:00 AM EST Appointment [facility] [address] [facility] [place], [place] [id number] Jomar Kim MD [address] [place] [address] documented as of this encounter Goals Goal Patient Goal Type Associated Problems Recent Progress Patient-Stated? Author Blood Pressure < 140/90 Blood Pressure 110/72(04/09 2:44 PM EDT) No Rachel Rogers RMA BMI (Calculated) < 30 General 50.9(2023 2:44 PM EDT) No Rachel Rogers RMA Eat better, exercise, reach an ideal body weight General No Ni Clinton, paper cone machine tender Healing General On track(12/03 9:18 [...] Capsule by mouth 2 times daily. Reorder 08/19/2022 09/20/2022 documented as of this encounter Additional Health Concerns Assessment Noted Time A fall risk assessment has been complete d for the patient 07/27/2022 10:00 AM EST documented as of this encounter Care Teams Brick Burner Relationship Specialty Start Date End Date Cristiane Shirley MD [address] [place] [address] PCP - General Family Medicine 08/20/18 12/29/23 Garett Holt MD Internal Medicine-Gastroenterology 12/22/12 Ruiz Stokes MD [address] [place] [id number] Internal Medicine-Cardiovascular Disease 07/25/14 Yenny Schwab MD [address] [place] [address] Internal Medicine-Rheumatology 12/11/16 documented as of this encounter
--- OUTSIDE RECORDS SUMMARY | 2024-07-22 16:01 | XMS_ITS | Encounter Summary ---
Author Organization [place] [address] Care Team Providers Care Weather Strip Mechanic Name Role Phone Garett Holt MD Unavailable [phone] Ruiz Stokes MD Unavailable [phone] Yenny Schwab MD Unavailable [phone] Cristiane Shirley MD Primary Care Provider Reason for Visit * Reason Onset Date Comments Central Order Completion Outreach 08/21/2022 Mammogram Encounter Details Date Type Department Care Team (Late st Contact Info) Description 08/21/2022 Patient Outreach [facility] [address] [place], [place] [id number] Cristiane Shirley MD [address] [place] [address] Central Order Completion Outreach (Mammogram/) Social History Tobacco Use Types Packs/Day Years [...] Date Recorded PHQ-2 Total Score 0 12/01/2021 [facility] Occupat ional [...] documented in this encounter Progress Notes * Casi Cunningham RN - 08/21/2022 4:41 PM EST [facility] Order Completion Outcome Tracking Contact Attempt:: First Mammogram Outcome:: Patient Declined Patient declined reason:: Not Interested documented in this encounter Plan of Treatment Upcoming Encounters Date Type Department Care Team (Late st Contact Info) Description 07/29/2024 9:00 AM EST Appointment [facility] [facility] [place] [address] Jomar Kim MD [address] [place] [address] documented as of this encounter Goals Goal Patient Goal Type Associated Problems Recent Progress Patient-Stated? Author Blood Pressure < 140/90 Blood Pressure 110/72(04/09 2:44 PM EDT) No Rachel Rogers, CAR[place] BMI (Calculated) < 30 General 50.9(2023 2:44 PM EDT) No Rachel Rogers, [place] Eat better, exercise, reach an ideal body weight General No Ni Clinton, nursing executive Healing General On track(12/03 9:18 AM EDT) [...] neuropathy weekly. ?? Refer to PCP and/or Receivable Executive, Vascular Specialist as indicated. ?? Monitor [...] documented as of this encounter Care Teams Weather Strip Mechanic Relationship Specialty Start Date End Date Cristiane Shirley MD [address] [place] [address] PCP - General Family Medicine 08/20/18 12/29/23 Garett Hlot MD Internal Medicine-Gastroenterology 12/22/12 Ruiz Stokes MD [address] [place] [address] Internal Medicine-Cardiovascular Disease 07/25/14 Yenny Schwab MD [address] [place] [address] Internal Medicine-Rheumatology 12/11/16 documented as of this encounter
--- OUTSIDE RECORDS SUMMARY | 2024-07-22 16:01 | XMS_ITS | Encounter Summary ---
Author Organization [place] [address] Care Team Providers Care Precinct Police Lieutenant Name Role Phone Garett Holt MD Unavailable [phone] Ruiz Stokes MD Unavailable [phone] Yenny Schwab MD Unavailable [phone] Cristiane Shirley MD Primary Care Provider Reason for Visit * Reason Onset Date Comments Medication Refill 11/24/2022 Encounter Details Date Type Department Care Team (Late st Contact Info) Description 11/24/2022 Refill [facility] [address] [place] [address] Cristiane Shirley MD [address] [place] [address] Medication Refill Social History Tobacco Use Types [...] Date Recorded PHQ-2 Total Score 0 12/01/2021 [facility] Occupat ional Health - [...] Refills Last Filled Start Date End Date metFORMIN (GLUCOPHAGE) 500 mg Oral Tablet Take 1 Tablet by mouth daily (with breakfast). 90 Tablet 11/25/2022 05/27/2023 documented in this encounter Plan of Treatment Upcoming Encounters Date Type Department Care Team (Late st Contact Info) Description 07/29/2024 9:00 AM EST App[facility]ment [facility] [facility] [place], [place] [phone] Jomar Kim MD [address] [place] [address] documented as of this encounter Goals Goal Patient Goal Type Associated Problems Recent Progress Patient-Stated? Author Blood Pressure < 140/90 Blood Pressure 110/72(04/09 2:44 PM EDT) No Rachel Rogers RMA BMI (Calculated) < 30 General 50.9(2023 2:44 PM EDT) No Rachel Rogers RMA Eat better, exercise, reach an ideal body weight General No Ni Clinton, meter tester polyphase Healing General On track(12/03 9:18 AM EDT) No Bessie oMrse RN Note: Wound volume reduction goals ?? [...] neuropathy weekly. ?? Refer to PCP and/or Planting Material Carrier, Vascular Specialist as indicated. ?? Monitor patient [...] (GLUCOPHAGE) 500 mg Oral Tablet Take 1 tablet by mouth once daily with breakfast Reorder 10/22/2022 11/24/2022 documented as of this encounter Additional Health Concerns Assessment Noted Time A fall risk assessment has been complete d for the patient 07/27/2022 10:00 AM EST documented as of this encounter Care Teams Precinct Police Lieutenant Relationship Specialty Start Date End Date Cristiane Shirley MD [address] [place] [address] PCP - General Family Medicine 08/20/18 12/29/23 Garett Holt MD Internal Medicine-Gastroenterology 12/22/12 Ruiz Stokes MD [address] [place] [address] Internal Medicine-Cardiovascular Disease 07/25/14 Yenny Schwab MD [address] [address] Internal Medicine-Rheumatology 12/11/16 documented as of this encounter
--- OUTSIDE RECORDS SUMMARY | 2024-07-22 16:01 | XMS_ITS | Encounter Summary ---
Author Organization [place] [address] Care Team Providers Care Graphic Arts Technician Name Role Phone Garett Holt MD Unavailable [phone] Ruiz Stokes MD Unavailable [phone] Yenny Schwab MD Unavailable [phone] Cristiane Shirley MD Primary Care Provider Reason for Visit * Reason Onset Date Comments Central Order Completion Outreach 11/21/2022 mammogram Encounter Details Date Type Department Care Team (Late st Contact Info) Description 11/21/2022 Patient Outreach [facility] [address] [place], [place] [phone] Cristiane Shirley MD [address] [place] [address] Central Order Completion Outreach (mammogram ) Social History Tobacco Use Types Packs/Day [...] Date Recorded PHQ-2 Total Score 0 12/01/2021 [facility]at ional [facility] - Occupational Stress Questionnaire Answer Date [...] in this encounter Progress Notes * Aleena Briceno RN - 11/21/2022 10:15 AM EDT [facility] Order Completion Outcome Tracking Contact Attempt:: Final Mammogram Outcome:: Screening Scheduled Mammogram scheduled 11/25/22 documented in this encounter Plan of Treatment Upcoming Encounters Date Type Department Care Team (Late st Contact Info) Description 07/29/2024 9:00 AM EST Appointment [facility] [address] [place] [address] Jomar Kim MD [address] [place] [address] documented as of this encounter Goals Goal Patient Goal Type Associated Problems Recent Progress Patient-Stated? Author Blood Pressure < 140/90 Blood Pressure 110/72(04/09 2:44 PM EDT) No Rachel Rogers, MULU BMI (Calculated) < 30 General 50.9(2023 2:44 PM EDT) No Rachel Rogers, RMA Eat better, exercise, reach an ideal body weight General No Ni Clinton, senior procurement manager Healing General On track(12/03 9:18 AM [...] neuropathy weekly. ?? Refer to PCP and/or Vtc Technician, Vascular Specialist as indicated. ?? Monitor [...] documented as of this encounter Care Teams Graphic Arts Technician Relationship Specialty Start Date End Date Cristiane Shirley MD [address] [place] [address] PCP - General Family Medicine 08/20/18 12/29/23 Garett Holt MD Internal Medicine-Gastroenterology 12/22/12 Ruiz Stokes MD [address] [place] [address] Internal Medicine-Cardiovascular Disease 07/25/14 Yenny Schwab MD [address] [place] [address] Internal Medicine-Rheumatology 12/11/16 documented as of this encounter
--- OUTSIDE RECORDS SUMMARY | 2024-07-22 16:01 | XMS_ITS | Encounter Summary ---
Author Organization [place] [address] Care Team Providers Care Edge Glue Machine Tender Name Role Phone Garett Holt MD Unavailable [phone] Ruiz Stokes MD Unavailable [phone] Yenny Schwab MD Unavailable [phone] Cristiane Shirley MD Primary Care Provider [phone] Reason for Referral * Consultation (Routine) - Closed Specialty Diagnoses / Procedures Referred By Contalissa t Referred To Contact General Surgery Diagnoses Abdominal hernia without obstruction and without gangrene, recurrence not specified, unspecified hernia type Cristiane Shirley MD [address] [place] [address] Phone: tel: fax: [facility] Gen Surgery [address] [address] Phone: tel: fax: Referral ID Status Reason Start Date Expiration Date Visits Re quested Visits Authorized [id number] Closed 12/21/2022 12/21/2023 99 99 * Consultation (Routine) - Closed Specialty Diagnoses / Procedures Referred By Contac t Referred To Contact Obstetrics and Gynecology Diagnoses Female bladder prolapse Cristiane Shirley MD [address] [place] [address] Phone: tel: fax: [facility] Christina Tur [address] [place] [address] Phone: tel: fax: Referral ID Status Reason Start Date Expiration Date Visits Re quested Visits Authorized [id number] Closed 12/21/2022 12/21/2023 99 99 * Consultation (Routine) - Closed Specialty Diagnoses / Procedures Referred By Contalissa t Referred To Contact Podiatry Diagnoses Foot pain, right Type 2 diabetes mellitus without complication, without long-term current use of insulin ([facility]) Cristiane Shirley MD [address] [place] [address] Phone: tel: fax: JuaresHeriberto, [facility] [address] [place] [address] Phone: tel: fax: Referral ID Status Reason Start Date Expiration Date Visits Re quested Visits Authorized [id number] Closed 12/21/2022 12/21/2023 99 99 Reason for Visit * Reason Comments Vaginal Pain Urinary Tract Infection Back Pain Edema Foot Pain Encounter Details Date Type Department Care Team (Late st Contact Info) Description 12/21/2022 10:30 AM EDT Office Visit [facility] [address] [place] [phone] Cristiane Shirley MD [address] [place] [address] Foot pain, right (Primary Dx); Essential hypertension; Type 2 diabetes mellitus without complication, without long-term current use of insulin (HCC); UTI (urinary tract infection), uncomplicated; Female bladder prolapse; PMR (polymyalgia rheumatica) (HCC); Chronic bronchitis, unspecified chronic bronchitis type (HCC); Atherosclerosis of aorta (HCC); Body mass index (BMI) 45.0-49.9, adult (HCC); Abdominal hernia without obstruction and without gangrene, recurrence not specified, unspecified hernia type Social History Tobacco Use Types Packs/Day Years [...] [facility] of Occupat ional [facility] - Occupational Stress Questionnaire Answer [...] Sign Reading Time Taken Comments Blood Pressure 120/72 12/21/2022 10:47 AM EDT Pulse - - Temperature - - Respiratory Rate - - Oxygen Saturation - - Inhaled Oxygen Concentration - - Weight 110.2 kg (243 lb) 12/21/2022 10:47 AM EDT Height 162.6 cm (5' 4 ) 12/21/2022 10:47 AM EDT Body Mass Index 41.71 12/21/2022 10:47 AM EDT documented in this encounter Functional [...] Refills Last Filled Start Date End Date cephALEXin (KEFLEX) 500 mg Oral CapsuleIndications: UTI (urinary tract infection), uncomplicated Take 1 Capsule by mouth every 8 hours for 10 days. 30 Capsule 12/21/2022 3 documented in this encounter Progress Notes * Cristiane Shirley MD - 12/21/2022 10:30 AM EDT Vitals: 12/21/22 1047 BP: 120/72 Weight: 243 lb (110.2 kg) Height: 5' 4 (1.626 m) SUBJECTIVE: Chief Complaint Patient presents with Vaginal Pain Urinary Tract Infection Back Pain Edema Foot Pain HPI: Urinary Tract Infection: Patient complains of burning with urination, incontinence She has hadsymptoms for for a while . Patient also complains of back pain and vaginal pain . Patient denies cough. Patient does have a history of recurrent UTI. Patient does not have a history of pyelonephritis. Edema: Patient complains of edema. The location of the edema is abdomen, upper leg(s) bilateral, knee(s) bilateral, lower leg(s) bilateral, feet bilateral. The edema has been moderate. Onset of symptoms was for a while ago, unchanged since that time. The edema is present all day. The patient statesthe problem is long- standing. The swelling has been aggravated by nothing, relieved by diuretics, an d been associated with shortness of breath. Cardiac risk factors include advanced age (older than 55 for men, 65 for women), diabetes mellitus, hypertension, and obesity (BMI >= 30 kg/m2). DIABETES Blood sugars were reviewed. No hypoglycemia. Currently on a diabetic diet which helps with sugars. Review of Systems Constitutional: Negative. HENT: Negative. Respiratory: Negative for cough. Cardiovascular: Negative. Gastrointestinal: Negative for abdominal pain and diarrhea. Genitourinary: Positive for frequency and urgency. Musculoskeletal: Negative. Skin: Negative. Neurological: Negative. Hematological: Negative. Psychiatric/Behavioral: Negative. OBJECTIVE: Physical Exam Vitals and nursing note reviewed. HENT: Head: Normocephalic. Cardiovascular: Rate and Rhythm: Normal rate. Heart sounds: No murmur heard. Pulmonary: Effort: Pulmonary effort is normal. Breath sounds: No wheezing. Abdominal: Palpations: Abdomen is soft. Tenderness: There is no abdominal tenderness. Musculoskeletal: General: Tenderness present. Neurological: General: No focal deficit present. Mental Status: She is alert. Psychiatric: Mood and Affect: Mood normal. Assessment Diagnoses and all orders for this visit: Foot pain, right - AMB REFERRAL TO PODIATRY - XR TOE RIGHT 2 + VW; Future Essential hypertension Type 2 diabetes mellitus without complication, without long-term current use of insulin (HCC) (Chronic) - AMB REFERRAL TO PODIATRY stable UTI (urinary tract infection), uncomplicated - cephALEXin (KEFLEX) 500 mg Oral Capsule; Take 1 Capsule by mouth every 8 hours for 10 days. Dispense: 30 Capsule; Refill: 0 Female bladder prolapse - AMB REFERRAL TO [facility] PMR (polymyalgia rheumatica) (HCC) (Chronic) stable Chronic bronchitis, unspecified chronic bronchitis type (HCC) (Chronic) stable Atherosclerosis of aorta (HCC) (Chronic) stable Body mass index (BMI) 45.0-49.9, adult (HCC) (Chronic) stable Abdominal hernia without obstruction and without gangrene, recurrence not specified, unspecified hernia type - AMB REFERRAL TO GENERAL SURGERY Other orders - SEP URINALYSIS POC documented in this encounter Plan of Treatment Upcoming Encounters Date Type Department Care Team (Late st Contact Info) Description 07/29/2024 9:00 AM EST Appointment [facility] [address] [place] [address] Jomar Kim MD [address] [place] [address] Scheduled Referrals Name Type Priority Associated Diagnoses Orde r Schedule AMB REFERRAL TO PODIATRY Outpatient Referral Routine Foot pain, right Type 2 diabetes mellitus without complication, without long-term current use of insulin (HCC) Ordered: 12/21/2022 AMB REFERRAL TO [facility] Outpatient Referral Routine Female bladder prolapse Ordered: 12/21/2022 AMB REFERRAL TO GENERAL SURGERY Outpatient Referral Routine Abdominal hernia without obstruction and without gangrene, recurrence not specified, unspecified hernia type Ordered: 12/21/2022 documented as of this encounter [...] neuropathy weekly. ?? Refer to PCP and/or Manager Market Development, Vascular Specialist as indicated. ?? Monitor patient [...] Procedure Name Priority Date/Time Associated Diagnosis Comments SEP URINALYSIS POC Routine 12/21/2022 11 :30 AM EDT UTI (urinary tract infection), uncomplicated documented in this encounter Results * XR TOE RIGHT 2 + VW [...] 1:18 PM CLINICAL HISTORY: ??M79.671-Pain in right [id number] COMPARISON: ??09/14/2019 PROCEDURE COMMENTS: XR TOE RIGHT 2 + VW FINDINGS: Osteopenia. No acute fracture or dislocation. Calcaneal enthesopathy. Spurring dorsally the midfoot. Mild spurring at the first MTP joint with joint space narrowing. Procedure Note Perla Schroeder MD - 01/10/2023 XR TOE RIGHT 2 + VW, 01/10/2023 1:18 PM CLINICAL HISTORY: M79.671-Pain in right [id number] COMPARISON: 09/14/2019 PROCEDURE COMMENTS: XR TOE RIGHT [...] DIAGNOSTIC IMAGING ORDERAB LES Final Result * (ABNORMAL) SEP URINALYSIS POC (12/21/2022 11:30 AM EDT) UA Color POC Yellow Color 12/21/2022 11:32 AM EDT [facility] Appear POC Clear Clear 12/21/2022 11:32 AM EDT [facility] Gluc POC Negative Negative mg/dL 12/21/2022 11:32 AM EDT [facility] Bili POC Negative Negative 12/21/2022 11:32 AM EDT [facility] UA Ketones POC Negative Negative mg/dL 12/21/2022 11:32 AM EDT [facility] UA SG POC 1.025 1.001 - 1.035 no units 12/21/2022 11:32 AM EDT [facility] UA Blood POC Small(A) Negative 12/21/2022 11:32 AM EDT [facility] UA pH POC 6.5 5.0 - 8.0 pH 12/21/2022 11:32 AM EDT [facility] UA Protein POC Negative Negative mg/dL 12/21/2022 11:32 AM EDT [facility] UA Urobilinogen POC 0.2 0.2, 1.0 12/21/2022 11:32 AM EDT [facility] UA Nitrite POC Negative Negative 12/21/2022 11:32 AM EDT [facility] UA Leuk Est POC Trace(A) Negative 11:32 AM EDT [facility] Urine URINE SPECIMEN COLLECTION / Unknown 12/21/2022 11:30 AM EDT 12/21/2022 11:32 AM EDT us Cristiane Shirley MD POINT OF CARE TEST ORDERABLES Final Result Performing Organization Address City/State/[facility] Co de Phone Number [address] [address] documented in this encounter Visit Diagnoses Diagnosis Foot pain, right- Primary Pain in limb Essential hypertension Unspecified essential hypertension Type 2 diabetes mellitus without complication, without long-term current use of insulin ([facility]) UTI (urinary tract infection), uncomplicated Urinary tract infection, site not specified Female bladder prolapse Cystocele, midline PMR (polymyalgia rheumatica) (HCC) Polymyalgia rheumatica Chronic bronchitis, unspecified chronic bronchitis type (HCC) Atherosclerosis of aorta (HCC) Atherosclerosis of aorta Body mass index (BMI) 45.0-49.9, adult ([facility]) Abdominal hernia without obstruction and without gangrene, recurrence not specified, unspecified hernia type Foot pain, right Pain in limb Right hip pain Pain in joint, pelvic region and thigh documented in this encounter Historical Medications * This list may reflect changes made after this encounter. ONETONAHID DELICA PLUS LANCET 33 gauge Misc Misc USE TO CHECK GLUCOSE TWICE DAILY 11/08/2022 added in this encounter Additional Health Concerns Assessment Noted Time A fall risk assessment has been complete d for the patient 07/27/2022 10:00 AM EST documented as of this encounter Care Teams Edge Glue Machine Tender Relationship Specialty Start Date End Date Cristiane Shirley MD [address] [place] [address] PCP - General Family Medicine 08/20/18 12/29/23 Garett Holt MD Internal Medicine-Gastroenterology 12/22/12 Ruiz Stokes MD [address] [place] [address] Internal Medicine-Cardiovascular Disease 07/25/14 Yenny Schwab MD [address] [address] Internal Medicine-Rheumatology 12/11/16 documented as of this encounter
--- OUTSIDE RECORDS SUMMARY | 2024-07-22 16:01 | XMS_ITS | Encounter Summary ---
Author Organization [place] [address] Care Team Providers Care Ditto Machine Operator Name Role Phone Garett Holt MD Unavailable [phone] Ruiz Stokes MD Unavailable [phone] Yenny Schwab MD Unavailable [phone] Cristiane Shirley MD Primary Care Provider [phone] Reason for Visit * Reason Comments Medication Refill Encounter Details Date Type Department Care Team (Late st Contact Info) Description 10/20/2022 Refill [facility] [address] [place] [address] Cristiane Shirley MD [address] [place] [address] Medication Refill Social History Tobacco Use Types [...] Date Recorded PHQ-2 Total Score 0 12/01/2021 [facility] of Occupat ional Health - Occupational Stress [...] tablet by mouth once daily with breakfast 90 Tablet 10/22/2022 3 documented in this encounter Miscellaneous Notes * Telephone Encounter - Rad Hinojosa CPhT - 10/22/2022 8:32 AM EST Metformin- Medication Refill Protocol passed. tank cleaner Action: Approved refills to noted follow-up date by provider or protocol if no follow-up date noted. documented in this encounter Plan of Treatment Upcoming Encounters Date Type Department Care Team (Late st Contact Info) Description 07/29/2024 9:00 AM EST Appointment [facility] [address] [place] [address] Jomar Kim MD [address] [place] [address] documented as of this encounter [...] weekly. ?? Refer to PCP and/or Manager Stone, Vascular Specialist as indicated. ?? Monitor patient [...] 1 Tablet by mouth daily (with breakfast). 07/19/2022 10/22/2022 documented as of this encounter Additional Health Concerns Assessment Noted Time A fall risk assessment has been complete d for the patient 07/27/2022 10:00 AM EST documented as of this encounter Care Teams Ditto Machine Operator Relationship Specialty Start Date End Date [place] Cristiane Campbell MD [address] [place] [address] PCP - General Family Medicine 08/20/18 12/29/23 Garett Holt MD Internal Medicine-Gastroenterology 12/22/12 Ruiz Stokes MD [address] [place], [place] [id number] Internal Medicine-Cardiovascular Disease 07/25/14 Yenny Schwab MD 6[address] [facility] [address] [place] [address] Internal Medicine-Rheumatology 12/11/16 documented as of this encounter
--- OUTSIDE RECORDS SUMMARY | 2024-07-22 16:01 | XMS_ITS | Encounter Summary ---
Author Organization [place] [address] Care Team Providers Care Programs Director Name Role Phone Garett Holt MD Unavailable [phone] Ruiz Stokes MD Unavailable [phone] Yenny Schwab MD Unavailable [phone] Cristiane Shirley MD Primary Care Provider Reason for Visit * Reason Comments Medication Refill Encounter Details Date Type Department Care Team (Late st Contact Info) Description 10/17/[address] [facility] [address] [place] [address] Cristiane Shirley MD [address] [place] [address] Medication Refill Social History Tobacco Use Types [...] Date Recorded PHQ-2 Total Score 0 12/01/2021 [facility] [place] of Occupat ional Health - Occupational [...] Refills Last Filled Start Date End Date fluticasone propionate (FLONASE) 50 mcg/actuation Nasl [place], SuspensionIndicati ons:ETD (Eustachian tube dysfunction), right Use 1 spray(s) in each nostril once daily 16 g 10/17/2022 documented in this encounter Plan of Treatment Upcoming Encounters Date Type Department Care Team (Late st Contact Info) Description 07/29/2024 9:00 AM EST Appointment [facility] [address] [place] [address] Jomar Kim MD [address] [place] [address] documented as of this encounter Goals Goal Patient Goal Type Associated Problems Recent Progress Patient-Stated? Author Blood Pressure < 140/90 Blood Pressure 110/72(04/09 2:44 PM EDT) No Rachel Rogers, CAR[place]A BMI (Calculated) < 30 General 50.9(2023 2:44 PM EDT) No Rachel Rogers RMA Eat better, exercise, reach an ideal body weight General No Ni Clinton, silica spray mixer Healing General On track(12/03 9:18 AM [...] neuropathy weekly. ?? Refer to PCP and/or Cutting Table Operator, Vascular Specialist as indicated. ?? Monitor [...] as of this encounter Visit Diagnoses Diagnosis ETD (Eustachian tube dysfunction), right documented in this encounter Discontinued Medications Medication Sig Discontinue Reason Start Date End Da te fluticasone propionate (FLONASE) 50 mcg/actuation Nasl [place], SuspensionIndications:ET D (Eustachian tube dysfunction), right Use 1 spray in each nostril once daily 02/05/2022 10/17/2022 documented as of this encounter Additional Health Concerns Assessment Noted Time A fall risk assessment has been complete d for the patient 07/27/2022 10:00 AM EST documented as of this encounter Care Teams Programs Director Relationship Specialty Start Date End Date Cristiane Shirley MD [address] [place] [address] PCP - General Family Medicine 08/20/18 12/29/23 Garett Holt MD Internal Medicine-Gastroenterology 12/22/12 Ruiz Stokes MD [address] [place] [address] Internal Medicine-Cardiovascular Disease 07/25/14 Yenny Schwab MD 651 [facility] Building [address] [place] [address] Internal Medicine-Rheumatology 12/11/16 documented as of this encounter
--- OUTSIDE RECORDS SUMMARY | 2024-07-22 16:01 | XMS_ITS | Encounter Summary ---
Author Organization [place] [address] Care Team Providers Care Patient Services Manager Name Role Phone Garett Holt MD Unavailable [phone] Ruiz Stokes MD Unavailable [phone] Yenny Schwab MD Unavailable [phone] Cristiane Shirley MD Primary Care Provider [phone] Reason for Visit * Reason Onset Date Comments Medication Refill 05/27/2022 Encounter Details Date Type Department Care Team (Late st Contact Info) Description 05/27/2022 Refill [facility] [address] [place] [address] Jomar Kim MD [address] [place], [place] [id number] Medication Refill Social History Tobacco Use Types [...] Recorded PHQ-2 Total Score 0 12/01/2021 [facility] of Occupat ional [facility] - Occupational Stress Questionnaire Answer Date [...] 9:00 AM EST Appointment [facility] [address] [place], [place] [id number] Jomar Kim MD [address] [place] [address] documented as of this encounter Goals Goal Patient Goal Type Associated Problems Recent Progress Patient-Stated? Author Blood Pressure < 140/90 Blood Pressure 110/72(04/09 2:44 PM EDT) No Rachel Rogers RMA BMI (Calculated) < 30 General 50.9(2023 2:44 PM EDT) No Rachel Rogers RMA Eat better, exercise, reach an ideal body weight General No Ni Clinton, fish egg packer Healing General On track(12/03 9:18 AM EDT) [...] neuropathy weekly. ?? Refer to PCP and/or Financial Investment Adviser, Vascular Specialist as indicated. ?? Monitor patient [...] documented as of this encounter Care Teams Patient Services Manager Relationship Specialty Start Date End Date Cristiane Shirley MD [address] [place] [address] PCP - General Family Medicine 08/20/18 12/29/23 Garett Holt MD Internal Medicine-Gastroenterology 12/22/12 Ruiz Stokes MD [address] [place] [address] Internal Medicine-Cardiovascular Disease 07/25/14 Yenny Schwab MD 651 [facility] [address] [place] [address] Internal Medicine-Rheumatology 12/11/16 documented as of this encounter
--- OUTSIDE RECORDS SUMMARY | 2024-07-22 16:01 | XMS_ITS | Encounter Summary ---
Author Organization [place] [address] Care Team Providers Care Conditioner Tumbler Name Role Phone Garett Holt MD Unavailable [phone] Ruiz Stokes MD Unavailable [phone] Yenny Schwab MD Unavailable [phone] Cristiane Shirley MD Primary Care Provider Reason for Visit * Reason Onset Date Comments Medication Refill 11/24/2022 Encounter Details Date Type Department Care Team (Late st Contact Info) Description 11/24/2022 Refill [facility] [address] [place] [address] Cristiane Shirley MD [address] [place] [address] Medication Refill Social History Tobacco Use Types [...] Date Recorded PHQ-2 Total Score 0 12/01/2021 [facility] of Occupat ional Health - Occupational Stress [...] mouth 2 times daily. 60 Capsule 2 11/25/2022 3 lisinopriL (PRINIVIL;ZESTRIL) 20 mg Oral Tablet tabletIndications: Essential hypertension Take 1 Tablet by mouth daily. 91 Tablet 1 11/25/2022 3 fUROsemide (LASIX) 40 mg Oral TabletIndications: Lower extremity edema,Venous stasis dermatitis of left lower extremity One tab daily and may take an extra if needed. 60 Tablet 6 11/25/2022 3 documented in this encounter Plan of Treatment Upcoming Encounters Date Type Department Care Team (Late st Contact Info) Description 07/29/2024 9:00 AM EST Appointment [facility] [address] [place] [address] Jomar Kim MD [address] [place] [address] documented as of this encounter [...] On track(12/03 9:18 AM EDT) No Bessie Mrose RN Note: Wound volume reduction goals ?? [...] neuropathy weekly. ?? Refer to PCP and/or Race Car Mechanic, Vascular Specialist as indicated. ?? Monitor [...] may take an extra if needed. Reorder 02/06/2021 11/24/2022 lisinopriL (PRINIVIL;ZESTRIL) 20 mg Oral Tablet tabletIndications:Essenti al hypertension Take 1 Tablet by mouth daily. Reorder 05/27/2022 11/24/2022 docusate sodium (COLACE) 100 mg Oral Capsule Take 1 Capsule by mouth 2 times daily. Reorder 09/20/2022 11/24/2022 documented as of this encounter Additional Health Concerns Assessment Noted Time A fall risk assessment has been complete d for the patient 07/27/2022 10:00 AM EST documented as of this encounter Care Teams Conditioner Tumbler Relationship Specialty Start Date End Date Cristiane Shirley MD [address] [place] [address] PCP - General Family Medicine 08/20/18 12/29/23 Garett Holt MD Internal Medicine-Gastroenterology 12/22/12 Ruiz Stokes MD [address] [place], [place] [id number] Internal Medicine-Cardiovascular Disease 07/25/14 Yenny Schwab MD 651 [facility] Building [address] [place] [address] Internal Medicine-Rheumatology 12/11/16 documented as of this encounter
--- OUTSIDE RECORDS SUMMARY | 2024-07-22 16:01 | XMS_ITS | Encounter Summary ---
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..] Sign Reading Time Taken Comments Blood Pressure 118/78 07/27/2022 10:00 AM EST Pulse - - Temperature 36.2 ??C (97.1 ??F) 07/27/2022 10:[address] Respiratory Rate - - Oxygen Saturation - - Inhaled Oxygen Concentration - - Weight 128.4 kg (283 lb) 07/27/2022 10:00 AM EST Height 162.6 cm (5' 4 ) 07/27/2022 10:00 AM EST Body Mass Index 48.58 07/27/2022 10:00 AM EST documented in this encounter Functional [...] Refills Last Filled Start Date End Date olopatadine (PATANOL) 0.1 % Opht DropsIndications:A llergic conjunctivitis, bilateral Place 1 Drop into both eyes 2 times daily. Administer drops in both eyes. 5 mL 07/27/2022 predniSONE (DELTASONE) 20 mg Oral TabletIndications: Acute left-sided low back pain without sciatica Take 2 Tablets by mouth daily for 5 days. 10 Tablet 07/27/2022 tiZANidine (ZANAFLEX) 4 mg Oral TabletIndications: Muscle spasm Take 1 Tablet by mouth 3 times daily as needed. 30 Tablet 07/27/2022 3 Blood-Glucose Meter [facility] KitIndications:Typ e 2 diabetes mellitus without complication, without long-term current use of insulin (HCC) Please fill with what her ins will cover and include lancets and strips. Dx. E11.9 1 Kit 07/27/2022 2 documented in this encounter Progress Notes * Doron Rojas, RYAN - 07/27/2022 10:15 AM EST Vitals: 07/27/22 1000 BP: 118/78 Temp: 97.1 ??F (36.2 ??C) Weight: 283 lb (128.4 kg) Height: 5' 4 (1.626 m) SUBJECTIVE: Chief Complaint Patient presents with ??? Leg Pain ??? Back Pain ??? Arm Pain right ??? Eye Drainage HPI: Leg Pain The pain is present in the right upper leg, back, left upper leg, neck and right arm. This is a newproblem. The current episode started more than 1 month ago. There has been no history of extremity trauma. The problem occurs constantly. The problem has been gradually worsening. Associated symptomsinclude an inability to bear weight. Arm Pain The pain is present in the right arm and neck. This is a new problem. The current episode started more than 1 month ago. The problem occurs constantly. Associated symptoms include an inability to bear weight. Eye Problem Both eyes are affected.This is a new problem. The current episode started in the past 7 days. The problem occurs intermittently. The problem has been waxing and waning. Associated symptoms include aneye discharge, eye redness and itching. Presents with lower back, leg pain that has worsened over the last several days. Has taken acetaminophen and aleve without improvement. Denies injury so site. Also with muscle spasms of neck, legs that have worsened recently. Currently taking furosemide daily. Also with intermittent eye pruritus, clear drainage, erythema for the last week. Denies matting. Diabetes: Alyssa following up today for diabetes. Current symptoms/problems include none. Current monitoring regimen: A1c every 6 months Home blood sugar records: does not check Any episodes of hypoglycemia? no On insulin? No Weight trend: Body mass index is 48.58 kg/m??. Wt Readings from Last 3 Encounters: 07/27/22 283 lb (128.4 kg) 06/08/22 283 lb (128.4 kg) 12/01/21 250 lb (113.4 kg) A1c trend: Lab [...] Results Component Value Date LDLCALC 81 02/24/2021 Hypertension: Home reporting of hypertension was reviewed [...] been reviewed with patient. Review of Systems Eyes: Positive for discharge, redness and itching. Musculoskeletal: Positive for back pain, myalgias and neck pain. OBJECTIVE: Physical Exam Constitutional: General: She is not in acute distress. Appearance: She is well-developed and well-nourished. She is not diaphoretic. HENT: Head: Normocephalic [...] oriented to person, place, and time. Psychiatric: Mood and Affect: Mood and affect normal. Behavior: Behavior normal. Thought Content: Thought content normal. Judgment: Judgment normal. Assessment Diagnoses and all orders for this visit: Acute left-sided low back pain without sciatica - predniSONE (DELTASONE) 20 mg Oral Tablet; Take 2 Tablets by mouth daily for 5 days. Dispense: 10 Tablet; Refill: 0 Muscle spasm Comments: -Concern for electrolyte imbalance with diuretic use. Will have previously ordered labs completed today. Orders: - tiZANidine (ZANAFLEX) 4 mg Oral Tablet; Take 1 Tablet by mouth 3 times daily as needed. Dispense:30 Tablet; Refill: 0 Allergic conjunctivitis, bilateral - olopatadine (PATANOL) 0.1 % Opht Drops; Place 1 Drop into both eyes 2 times daily. Administer drops in both eyes. Dispense: 5 mL; Refill: 0 Type 2 diabetes mellitus without complication, without long-term current use of insulin (HCC) (Chronic) - Blood-Glucose Meter Misc Kit; Please fill with what her ins will cover and include lancets and strips. Dx. E11.9 Dispense: 1 Kit; Refill: 0 - COMPREHENSIVE METABOLIC PANEL - TSH REFLEX - CBC WITH DIFF - VITAMIN B12/ FOLIC ACID - HEMOGLOBIN A1C - LIPID SCREEN Screening for diabetic retinopathy - IRIS DIABETIC RETINOPATHY EXAM documented in this encounter Plan of Treatment [...] reach an ideal body weight General No iN Clinton RN Wound Healing General On track(12/03 [...] neuropathy weekly. ?? Refer to PCP and/or Quirk Sander, Vascular Specialist as indicated. ?? Monitor patient [...] Procedure Name Priority Date/Time Associated Diagnosis Comments VITAMIN B12/ FOLIC ACID Routine 07/27/2022 10:35 AM EST Type 2 diabetes mellitus without complication, without long-term current use of insulin (HCC) TSH REFLEX Routine 07/27/2022 10:35 AM EST Type 2 diabetes mellitus without complication, without long-term current use of insulin (HCC) CBC WITH DIFF Routine 07/27/2022 10:35 AM EST Type 2 diabetes mellitus without complication, without long-term current use of insulin (HCC) HEMOGLOBIN A1C Routine 07/27/2022 10:35 AM EST Type 2 diabetes mellitus without complication, without long-term current use of insulin (HCC) LIPID SCREEN Routine 07/27/2022 10:35 AM EST Type 2 diabetes mellitus without complication, without long-term current use of insulin (HCC) COMPREHENSIVE METABOLIC PANEL Routine 07/27/2022 10:35 AM EST Type 2 diabetes mellitus without complication, without long-term current use of insulin (HCC) IRIS DIABETIC RETINOPATHY EXAM Routine 07/27/2022 4:35 AM EST Screening for diabetic retinopathy documented in this encounter Results * LIPID SCREEN (07/27/2022 10:35 AM EST) Cholesterol 148 <200 mg/dL 07/27/2022 3:36 PM EST [facility] Comment: < 200 ?Desirable 200 - 239 ? Borderline High >= 240 ?High Triglyceride 87 <150 mg/dL 07/27/2022 3:36 PM EST [facility] Comment: < 150 ? Normal 150 - 199 ?Borderline High 200 - 499 ?High ??>= 500 ? Very High HDL 48 >=40 mg/dL 07/27/2022 3:36 PM EST [employer] [employer] [facility] Comment: ??> 60 ?Optimal 40 - 60 ?Acceptable ?? < 40 ?Low LDL Calculated 83 <100 mg/dL 07/27/2022 3:36 PM EST [employer] [facility] [employer] [facility] Comment: < 100 ?Optimal 100 - 129 ? Near or above optimal 130 - 159 ? Borderline High 160 - 189 ? High >= 190 ?Very High Non-HDL-C Calculated 100 <=129 mg/dL 07/27/2022 3:36 PM EST [facility] Comment: <130 ?Desirable 130-159 Above Desirable 160-189 Borderline High 190-219 High >= 220 ??Very High Fasting Specimen? Yes None 022 3:36 PM EST [facility] Blood VENOUS BLOOD / Unknown Venipuncture / Unknown 07/27/2022 10:35 AM EST 07/27/2022 10:35 AM EST us Cristiane Shirley MD CHEMISTRY ORDERABLES Final Res ult Performing Organization Address City/State/[facility] Co de Phone Number [facility] 1 [facility] , [place] [address] [facility] [address] [place] [address] * (ABNORMAL) HEMOGLOBIN A1C (07/27/2022 10:35 AM EST) Hgb A1C 6.1(H) 4.2 - 5.6 % 07/27/2022 6:38 PM EST [facility] Est. Avg Glucose 128 mg/dL 07/27/2022 6:38 PM EST [facility] Blood VENOUS BLOOD / Unknown Venipuncture / Unknown 07/27/2022 10:35 AM EST 07/27/2022 10:35 AM EST Narrative [facility] - 07/27/2022 6:38 PM EST REFERENCE RANGE: [...] CHEMISTRY ORDERABLES Final Res ult [facility] [employer] [address] [facility] , [place] [address] * (ABNORMAL) VITAMIN B12/ FOLIC ACID (07/27/2022 10:35 AM EST) Vitamin B12 1,419(H) 232 - 1,245 pg/mL 07/27/2022 3:50 PM EST [facility] Folate >16.00 >=4.80 ng/mL 07/27/2022 3:50 PM EST [facility], [facility] Blood VENOUS BLOOD / Unknown Venipuncture / Unknown 07/27/2022 10:35 AM EST 07/27/2022 10:35 AM EST Narrative [facility] - 07/27/2022 3:50 PM EST Ingestion of min doses of biotin (>5 mg/day) taken within 8 hours of drawing blood sample can interfere with this immunoassay test. Cristiane Shirley MD CHEMISTRY ORDERABLES Final Res ult Performing Organization Address City/[facility]/ZIP Co de Phone Number [facility] [employer] [address] [facility] , [place] [address] * (ABNORMAL) CBC WITH DIFF (07/27/2022 10:35 AM EST) WBC 9.6 3.7 - 10.3 x10(3)/mcL 07/27/2022 3:16 PM EST [facility] RBC 3.73(L) 3.90 - 5.20 x10(6)/mcL 07/27/2022 3:16 PM EST [facility] Hgb 10.4(L) 11.2 - 15.7 g/dL 07/27/2022 3:16 PM EST [facility] Hct 34.2 34.0 - 45.0 % 07/27/2022 3:16 PM EST [facility] MCV 91.7 80.0 - 100.0 fL 07/27/2022 3:16 PM EST [facility] MCH 27.9 26.0 - 34.0 pg 07/27/2022 3:16 PM EST [facility] MCHC 30.4(L) 30.7 - 35.5 g/dL 07/27/2022 3:16 PM EST [facility] RDW 14.5 <=14.9 % 07/27/2022 3:16 PM EST [facility] Platelet 252 155 - 369 x10(3)/mcL 07/27/2022 3:16 PM EST [facility] MPV 10.1 8.8 - 12.5 fL 07/27/2022 3:16 PM EST [facility] Neut Percent 70.1 % 07/27/2022 3:16 PM EST [facility] Comment:Neutrophils equals s egs plus bands Imm Gran% 0.4 % 07/27/2022 3:16 PM EST [facility] Comment:Automated count of m etamyelocytes, myelocytes and promyelocytes. Lymph Percent 18.3 % 07/27/2022 3:16 PM EST [facility] [place] Percent 8.8 % 07/27/2022 3:16 PM EST [facility] Eos Percent 1.9 % 07/27/2022 3:16 PM EST [facility] Baso Percent 0.5 % 07/27/2022 3:16 PM [...] 3:16 PM EST [facility] [place] # 0.8 0.3 - 0.9 x10(3)/mcL 07/27/2022 3:16 PM EST [facility] [employer] Eos# 0.2 0.0 - 0.5 x10(3)/mcL 07/27/2022 3:16 PM EST [facility] Baso # 0.1 0.0 - 0.1 x10(3)/mcL 07/27/2022 3:16 PM EST [facility] [employer] Blood VENOUS BLOOD / Unknown Venipuncture / Unknown 07/27/2022 10:35 AM EST 07/27/2022 10:35 AM EST us Cristiane Shirley MD HEMATOLOGY ORDERABLES Final Re sult Performing Organization Address [facility]/ZIP Co de Phone Number [facility], [facility] 1 [facility] , [place] [address] * TSH REFLEX (07/27/2022 10:35 AM EST) TSH Reflex 1.500 0.270 - 4.200 mcIU/mL 07/27/2022 5:36 PM EST [facility] [employer] Blood VENOUS BLOOD / Unknown Venipuncture / Unknown 07/27/2022 10:35 AM EST 07/27/2022 10:35 AM EST Narrative [facility], [facility] - 07/27/2022 5:36 PM EST Ingestion of min doses of biotin (>5 mg/day) taken within 8 hours of drawing blood sample can interfere with this immunoassay test. us Cristiane Shirley MD CHEMISTRY ORDERABLES Final Res ult Performing Organization Address [facility] de Phone Number PREF[facility]ED Sara Campbell, [facility] 1 [facility] , [place] [address] * (ABNORMAL) COMPREHENSIVE METABOLIC PANEL (07/27/2022 10:35 AM EST) Sodium 141 136 - 145 mmol/L 07/27/2022 3:36 PM EST [facility] Potassium 4.7 3.5 - 5.0 mmol/L 07/27/2022 3:36 PM EST [facility] Chloride 106 98 - 107 mmol/L [...] 3:36 PM EST [facility] Alk Phos 80 36 - 123 U/L 07/27/2022 3:36 PM EST [facility] eGFR (CKD-EPIcr 2020) 80 >=60 mL/min/1.7 3 m2 07/27/2022 3:36 PM EST [facility] Comment:Estimated GFR was ca lculated using the CKD-EPIcr (2020) equation refit without race. The equation is recommended by the National Kidney Foundation - [place] [employer] of Nephrology Task Force. Blood VENOUS BLOOD / Unknown Venipuncture / Unknown 07/27/2022 10:35 AM EST 07/27/2022 10:35 AM EST us Cristiane Shirley MD CHEMISTRY ORDERABLES Final Res ult [facility] 1 [facility] [address], [place] [address] [facility] [address] [place] [address] * IRIS DIABETIC RETINOPATHY EXAM (07/27/2022 4:35 AM EST) [facility] Signature Retinopathy Exam Severity NORMAL [facility] Right Diabetic Retinopathy None [facility] Right Macular Edema None [facility] Right Other Retina None [facility] Right Eye Image Quality Gradable Image [facility] Left Diabetic Retinopathy None [facility] Left Macular Edema None [facility] Left Other Retina None [facility] Left Eye Image Quality Gradable Image [facility] 07/27/2022 4:35 AM EST 07/27/2022 4:[address] [facility] - 07/28/2022 5:13 AM EST Retinal Study Result for ALYSSA CAMPOS, a 67 y/o, F (: 1955, ) presented to [facility] on 07-27-2022 for a retinal imaging study of the left and right eyes. Based on the findings of the study, the following is recommended for ALYSSA CAMPOS Normal Study: Return for follow up exam in 12 months or next calendar year. Interpreting Provider's Comments: ??No comments provided Diagnoses Present: There are no ICD-10 codes present for this exam. Right eye findings: Negative for Diabetic Retinopathy Negative for Macular Edema Left eye findings: Negative for Diabetic Retinopathy Negative for Macular Edema This result was electronically signed by Amy Hairston MD; ; Taxonomy: [id number] on 07-28-2022 16:13 [facility]. NOTE: ??Any pathology noted on this diabetic retinal evaluation should be confirmed by an appropriate ophthalmic examination. Doron Rojas APRN OPHTHALMOLOGY SERVICES ORDER DICK Final Result [facility] [address] [place] [address] documented in this encounter Visit Diagnoses Diagnosis Acute left-sided low back pain without sciatica- Primary Muscle spasm Spasm of muscle Allergic conjunctivitis, bilateral Other chronic allergic conjunctivitis Type 2 diabetes mellitus without complication, without long-term current use of insulin (HCC) Screening for diabetic retinopathy Screening for other eye conditions documented in this encounter Discontinued Medications Medication Sig Discontinue Reason Start Date End Da te Blood-Glucose Meter Misc Kit Please fill with what her ins will cover Reorder 11/15/2015 07/27/2022 documented as of this encounter Additional Health Concerns Assessment Noted Time A fall risk assessment has been complete d for the patient 07/27/2022 10:00 AM EST documented as of this encounter Care Teams Intelligence Director Relationship Specialty Start Date End Date Cristiane Shirley MD [address] [place], [place] [id number] PCP - General Family Medicine 08/20/18 12/29/23 Garett Holt MD Internal Medicine-Gastroenterology 12/22/12 Ruiz Stokes MD [address] [place] [address] Internal Medicine-Cardiovascular Disease 07/25/14 Yenny Schwab MD [address] [address] Internal Medicine-Rheumatology 12/11/16 documented as of this encounter
--- OUTSIDE RECORDS SUMMARY | 2024-07-22 16:01 | XMS_ITS | Encounter Summary ---
Author Organization [place] [address] Care Team Providers Care Rn Triage Name Role Phone Garett Holt MD Unavailable [phone] Ruiz Stokes MD Unavailable [phone] Yenny Schwab MD Unavailable [phone] Cristiane Shirley MD Primary Care Provider Reason for Visit * Reason Onset Date Comments Central Order Completion Outreach 06/26/2022 mammogram Encounter Details Date Type Department Care Team (Late st Contact Info) Description 06/26/2022 Patient Outreach [facility] [address] [place], [place] [id number] Cristiane Shirley MD [address] [place] [address] Central Order Completion Outreach (mammogram) Social History [...] 0 12/01/2021 [facility] of Occupat ional [facility] - Occupational Stress Questionnaire Answer Date [...] documented in this encounter Progress Notes * Rafaela Foley RN - 06/26/2022 5:21 PM EDT SEP Order Completion Outcome Tracking Contact Attempt:: First Mammogram Outcome:: Screening Scheduled documented in this encounter Plan of Treatment Upcoming Encounters Date Type Department Care Team (Late st Contact Info) Description 07/29/2024 9:00 AM EST Appointment [facility] [address] [place] [address] Jomar Kim MD [address] [place] [address] documented as of this encounter Goals Goal Patient Goal Type Associated Problems Recent Progress Patient-Stated? 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 ?? Refer to PCP and/or Clinical Services Assistant, Vascular Specialist as indicated. ?? Monitor [...] as of this encounter Care Teams Rn Triage Relationship Specialty Start Date End Date Cristiane Shirley MD [address] [place] [address] PCP - General Family Medicine 08/20/18 12/29/23 Garett Holt MD Internal Medicine-Gastroenterology 12/22/12 Ruiz Stokes MD [address] [place] [address] Internal Medicine-Cardiovascular Disease 07/25/14 Yenny Schwab MD [address] [place] [address] Internal Medicine-Rheumatology 12/11/16 documented as of this encounter
--- OUTSIDE RECORDS SUMMARY | 2024-07-22 16:02 | XMS_ITS | Encounter Summary ---
Author Organization [place] [address] Care Team Providers Care Electrical System Specialist Name Role Phone Garett Holt MD Unavailable [phone] Ruiz Stokes MD Unavailable [phone] Yenny Schwab MD Unavailable [phone] Cristiane Shirley MD Primary Care Provider Reason for Visit * Reason Comments Medication Refill Encounter Details Date Type Department Care Team (Late st Contact Info) Description 12/24/2021 Refill [facility] [address] [place] [address] Cristiane Shirley MD [address] [place] [address] Medication Refill Social History Tobacco Use Types [...] Score 0 12/01/2021 [facility] of Occupat ional Health - Occupational Stress [...] Exposure Response Date Recorded In the last month, have you been in contact with someone who was confirmed or suspected to have Coronavirus / COVID-19? No / Unsure 11/29/2021 2:58 PM EDT documented as of this encounter [...] Refills Last Filled Start Date End Date loratadine (CLARITIN) 10 mg Oral TabletIndications:S easonal allergic rhinitis due to pollen Take 1 tablet by mouth once daily 63 Tablet 12/24/2021 documented in this encounter Plan of Treatment Upcoming Encounters Date Type Department Care Team (Late st Contact Info) Description 07/29/2024 9:00 AM EST Appointment [facility] [address] [place] [address] Jomar Kim MD [address] [place] [address] documented as of this encounter Goals Goal Patient Goal Type Associated Problems Recent Progress Patient-Stated? 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 ?? Refer to PCP and/or Field Applications Specialist, Vascular Specialist as indicated. ?? Monitor [...] as of this encounter Visit Diagnoses Diagnosis Seasonal allergic rhinitis due to pollen documented in this encounter Discontinued Medications Medication Sig Discontinue Reason Start Date End Da te loratadine (CLARITIN) 10 mg Oral TabletIndications:Season al allergic rhinitis due to pollen Take 1 tablet by mouth once daily 07/16/2021 12/24/2021 documented as of this encounter Additional Health Concerns Assessment Noted Time A fall risk assessment has been complete d for the patient 07/14/2021 12:13 PM EDT documented as of this encounter Care Teams Electrical System Specialist Relationship Specialty Start Date End Date Cristiane Shirley MD [address] [place] [address] PCP - General Family Medicine 08/20/18 12/29/23 Garett Holt MD Internal Medicine-Gastroenterology 12/22/12 Ruiz Stokes MD [address] [place] [address] Internal Medicine-Cardiovascular Disease 07/25/14 Yenny Schwab MD [address] [facility] Building [address] [place] [address] Internal Medicine-Rheumatology 12/11/16 documented as of this encounter
--- OUTSIDE RECORDS SUMMARY | 2024-07-22 16:02 | XMS_ITS | Encounter Summary ---
Author Organization [place] [address] Care Team Providers Care Gamer Name Role Phone Garett Holt MD Unavailable [phone] Ruiz Stokes MD Unavailable [phone] Yenny Schwab MD Unavailable [phone] Cristiane Shirley MD Primary Care Provider [phone] Reason for Visit * Reason Onset Date Comments Central Patient Navigator Outreach 11/30/2021 awv questionnaire Encounter Details Date Type Department Care Team (Late st Contact Info) Description 11/30/2021 Patient Outreach [facility] [address] [place] [address] Cristiane Shirley MD [address] [place] [address] Central Patient Navigator Outreach (awv questionnaire) Social History Tobacco Use Types Packs/Day Years [...] Date Recorded PHQ-2 Total Score 0 12/01/2021 [facility] - [...] hearing? Answer Date of Assessment Author No 09/29/2020 1:07 PM Jessee Parekh MA * Is the person blind or does he/she have serious difficulty seeing even when wearing glasses? Answer Date of Assessment Author No 09/29/2020 1:07 PM Jessee Parekh MA * Does this person have serious difficulty walking or climbing stairs? Answer Date of Assessment Author Yes 09/29/2020 1:07 PM Jessee Parekh MA * Does this person have difficulty dressing or bathing? Answer Date of Assessment Author Yes 09/29/2020 1:07 PM EST Jessee Skelton MA * Because of a physical, mental or emotional condition, does this person have difficulty doing errands alone such as visiting a doctor's office or shopping? Answer Date of Assessment Author Yes 09/29/2020 1:07 PM Jessee Parekh MA documented as of this encounter Mental Status * Because of a physical, mental or emotional condition, does this person have serious difficulty concentrating, remembering or making decisions? Answer Entry Date Author No 09/29/2020 1:07 PM EST Jessee Skelton MA documented in this encounter Progress Notes * Tana Jordan - 11/30/2021 8:10 AM EDT Patient Outreach: Pre-Visit Questionnaires Attempt Count: 1st Care Gaps Addressed refrigeration supervisor: Medicare Questionnaire, Diabetic Eye Exam, Diabetic A1c, Mammogram andCervical Cancer Screening Outcome: Mammogram Scheduled: Date 01/03/2022, Medicare Questionnaire completed, Cervical Cancer screening scheduled 12/29/2021 and diabetic eye xam noted on appt notes and pt will have bw at appt. documented in this encounter Plan of Treatment Upcoming Encounters Date Type Department Care Team (Late st Contact Info) Description 07/29/2024 9:00 AM EST Appointment [facility] [address] [place] [id number] Jomar Kim MD [address] [place] [address] documented as of this encounter Goals Goal Patient Goal Type Associated Problems Recent Progress Patient-Stated? Author Blood Pressure < 140/90 Blood Pressure 110/72(04/09 2:44 PM EDT) No Rachel Rogers RMA BMI (Calculated) < 30 General 50.9(2023 2:44 PM EDT) No Rachel Rogers RMA Eat better, exercise, reach an ideal body weight General No Ni Clinton leak detector Healing General On track(12/03 9:18 AM EDT) [...] neuropathy weekly. ?? Refer to PCP and/or Poultry Pathologist, Vascular Specialist as indicated. ?? Monitor patient [...] documented as of this encounter Care Teams Gamer Relationship Specialty Start Date End Date Cristiane Shirley MD [address] [place] [address] PCP - General Family Medicine 08/20/18 12/29/23 Garett Holt MD Internal Medicine-Gastroenterology 12/22/12 Ruiz Stokes MD [address] [place], [place] [id number] Internal Medicine-Cardiovascular Disease 07/25/14 Yenny Schwab MD [address] [facility] [address] [place] [address] Internal Medicine-Rheumatology 12/11/16 documented as of this encounter
--- OUTSIDE RECORDS SUMMARY | 2024-07-22 16:02 | XMS_ITS | Encounter Summary ---
Author Organization [place] [address] Care Team Providers Care Concrete Laborer Name Role Phone Garett Holt MD Unavailable [phone] Ruiz Stokes MD Unavailable [phone] Yenny Schwab MD Unavailable [phone] Cristiane Shirley MD Primary Care Provider Reason for Visit * Reason Onset Date Comments Central Patient Navigator Outreach 02/05/2022 Diabetic Labs Encounter Details Date Type Department Care Team (Late st Contact Info) Description 02/05/2022 Patient Outreach [facility] [address] [place] [address] Cristiane Shirley MD [address] [place] [address] Central Patient Navigator Outreach (Diabetic Labs) Social History Tobacco Use Types Packs/Day Years [...] Progress Notes * Rafaela Foley RN - 02/05/2022 5:13 PM EDT Patient Outreach: Care Gap Outreach Attempt Count: 1st Care Gaps Addressed transmission maintenance supervisor: Diabetic Eye Exam, Diabetic Labs, Mammogram and Cervical Cancer Screening Outcome: A1c ordered, Microalbumin ordered, Lipid panel with reflex ordered and Patient aware lab work is ordered and educated on lab locations. Declined other screenings. documented in this encounter Plan of Treatment Upcoming Encounters Date Type Department Care Team (Late st Contact Info) Description 07/29/2024 9:00 AM EST Appointment [facility] [address] [place] [address] Jomar Kim MD [address] [place] [address] Scheduled Orders Name Type Priority Associated Diagnoses Orde r Schedule HEMOGLOBIN A1C Lab Routine Type 2 diabetes mellitus without complication, unspecified whether meterman insulin use (HCC) 1 Occurrences starting 02/05/2022 until 02/05/2023 LIPID PANEL REFLEX Lab Routine Type 2 diabetes mellitus without complication, unspecified whether meterman insulin use (HCC) 1 Occurrences starting 02/05/2022 until 02/05/2023 MICROALBUMIN/CREATININE RATIO URINE Lab Routine Type 2 diabetes mellitus without complication, unspecified whether [facility] insulin use (HCC) 1 Occurrences starting 02/05/2022 until 02/05/2023 documented as of this encounter Goals Goal Patient Goal Type Associated Problems Recent Progress Patient-Stated? 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 ?? Refer to PCP and/or Rail Car Welder, Vascular Specialist as indicated. ?? Monitor patient [...] Diagnosis Type 2 diabetes mellitus without complication, unspecified whether meterman insulin use (HCC)- Primary documented in this encounter Additional Health Concerns Assessment Noted Time A fall risk assessment has been complete d for the patient 07/14/2021 12:13 PM EDT documented as of this encounter Care Teams Concrete Laborer Relationship Specialty Start Date End Date Cristiane Shirley MD [address] [place] [address] PCP - General Family Medicine 08/20/18 12/29/23 Garett Holt MD Internal Medicine-Gastroenterology 12/22/12 Ruiz Stokes MD [address] [place] [address] Internal Medicine-Cardiovascular Disease 07/25/14 Yenny Schwab MD [address] [address] Internal Medicine-Rheumatology 12/11/16 documented as of this encounter
--- OUTSIDE RECORDS SUMMARY | 2024-07-22 16:02 | XMS_ITS | Encounter Summary ---
Author Organization [place] [address] Care Team Providers Care Shank Paperer Name Role Phone Garett Holt MD Unavailable [phone] Ruiz Stokes MD Unavailable [phone] Yenny Schwab MD Unavailable [phone] Cristiane Shirley MD Primary Care Provider Reason for Visit * Reason Onset Date Comments Medication Refill 02/04/2022 Encounter Details Date Type Department Care Team (Late st Contact Info) Description 02/04/2022 Refill [facility] [address] [place] [address] Cristiane Shirley MD [address] [place] [address] Medication Refill Social History Tobacco Use Types [...] Date fluticasone propionate (FLONASE) 50 mcg/actuation Nasl [place], SuspensionIndicati ons:ETD (Eustachian tube dysfunction), right Use 1 spray in each nostril once daily 16 g 2 02/05/2022 3 documented in this encounter Plan of Treatment Upcoming Encounters Date Type Department Care Team (Late st Contact Info) Description 07/29/2024 9:00 AM EST Appointment [facility] [address] [place] [address] Jomar Kim MD [address] [place] [address] documented as of this encounter Goals Goal Patient Goal Type Associated Problems Recent Progress Patient-Stated? Author Blood Pressure < 140/90 Blood Pressure 110/72(04/09 2:44 PM EDT) No Rachel Rogers RMA BMI (Calculated) < 30 General 50.9(2023 2:44 PM EDT) No Rachel Rogers RMA Eat better, exercise, reach an ideal body weight General No Ni [place], party plan salesperson Healing General On track(12/03 9:18 AM EDT) [...] neuropathy weekly. ?? Refer to PCP and/or Controls Operator Molded Goods, Vascular Specialist as indicated. ?? Monitor patient [...] te fluticasone propionate (FLONASE) 50 mcg/actuation Nasl [place], SuspensionIndications:ET D (Eustachian tube dysfunction), right Use 1 spray(s) in each nostril once daily Reorder 08/29/2021 02/04/2022 documented as of this encounter Additional Health Concerns Assessment Noted Time A fall risk assessment has been complete d for the patient 07/14/2021 12:13 PM EDT documented as of this encounter Care Teams Shank Paperer Relationship Specialty Start Date End Date Cristiane Shirley MD [address] [place] [address] PCP - General Family Medicine 08/20/18 12/29/23 Garett Holt MD Internal Medicine-Gastroenterology 12/22/12 Ruiz Stokes MD [address] [place], [place] [id number] Internal Medicine-Cardiovascular Disease 07/25/14 Yenny Schwab MD [address] [facility] [address] [place] [address] Internal Medicine-Rheumatology 12/11/16 documented as of this encounter
--- OUTSIDE RECORDS SUMMARY | 2024-07-22 16:02 | XMS_ITS | Encounter Summary ---
Author Organization [place] [address] Care Team Providers Care Senior Climate Advisor Name Role Phone Garett Holt MD Unavailable [phone] Ruiz Stokes MD Unavailable [phone] Yenny Schwab MD Unavailable [phone] Cristiane Shirley MD Primary Care Provider [phone] Reason for Referral * Vascular Imaging (Emergency) - Closed Specialty Diagnoses / Procedures Referred By Contalissa t Referred To Contact Radiology Diagnoses Bilateral lower extremity edema Procedures [facility] LOWER EXTREMITY VENOUS LEFT Bryant Bowling APRN [address] [place] [address] Phone: tel: fax: Referral ID Status Reason Start Date Expiration Date Visits Re quested Visits Authorized [id number] Closed 11/24/2021 11/25/2023 1 1 Reason for Visit * Reason Comments Leg Swelling Leg swelling.. left worse than right Encounter Details Date Type Department Care Team (Late st Contact Info) Description 11/24/2021 5:00 PM EDT - 11/24/2021 8:02 PM EDT [facility] [address] [place] [address] Bouchra Up MD [address] [place] [id number] Bilateral lower extremity edema (Primary Dx); Abdominal pain, unspecified abdominal location; Dyspnea, unspecified type; Positive D-dimer Discharge Disposition: Home or Self Care Social [...] Answer Date Recorded PHQ-2 Total Score 0 09/29/2020 [facility] - Occupational [...] Sign Reading Time Taken Comments Blood Pressure 162/69 11/24/2021 7:32 PM EDT Pulse 70 11/24/2021 7:32 PM EDT Temperature 36.1 ??C (97 ??F) 11/24/2021 4:55 PM EDT Respiratory Rate 19 11/24/2021 7:32 PM EDT Oxygen Saturation 96% 11/24/2021 7:32 PM EDT Inhaled Oxygen Concentration - - Weight 113.4 kg (250 lb) 11/24/2021 4:55 PM EDT Height - - Body Mass Index 42.91 07/14/2021 12:09 PM EDT documented in this encounter Functional [...] 09/29/2020 1:07 PM Jessee Parekh MA * Because of a physical, mental [...] Entry Date Author No 09/29/2020 1:07 PM Jessee Parekh MA documented in this encounter Discharge Instructions * Discharge Instructions* Bryant Bowling APRN - 11/24/2021 7:08 PM EDT Follow-up with your family doctor in 2 days for reevaluation. Please let them know that you had a CAT scan of the chest performed and they can follow-up on the results and incidental findings. Call centralized scheduling tomorrow morning at [phone] to schedule an outpatient ultrasound of the left leg. You were given a Lovenox injection in the emergency department. Follow-up with family doctor for the results of the ultrasound. Prompt follow-up if persistent worsening symptoms. * Attachments The following attachments cannot be sent through Care Everywhere. * Shortness of Breath (Dyspnea) (Venezuelan) * Abdominal Pain, Adult ED (Venezuelan) * Dependent Edema Discharge Instructions (Venezuelan) documented in this encounter Medications at Time of Discharge albuterol (PROVENTIL) 2.5 mg /3 mL (0.083 %) Inhl Solution for NebulizationIndic ations:Acute bronchitis, unspecified organism Take 3 mL by nebulization every 4 hours as needed for Wheezing. 1 box 6 02/24/2021 CALCIUM ORAL Take 1 Tab by mouth daily. cholecalciferol, vitamin D3, (VITAMIN D3) 25 mcg (1,000 unit) Oral Tablet Take 1 Tab by mouth daily. 30 Tab 11 09/14/2019 Nebulizer Accessories Misc KitIndications:Ac mi'kmaq bronchitis, unspecified organism Nebulizer accessories 1 Kit 02/24/2021 aspirin 81 mg Oral Tablet, Delayed Release (E.C.) TAKE 1 TABLET BY MOUTH DAILY 91 Tab 11 10/24/2020 2 atorvastatin (LIPITOR) 20 mg Oral Tablet TAKE 1 TABLET BY MOUTH EVERY DAY 91 Tablet 1 07/20/2021 2 docusate sodium (COLACE) 100 mg Oral Capsule Take 1 capsule by mouth twice daily 60 Capsule 10/29/2021 2 lisinopriL (PRINIVIL;ZESTRIL ) 20 mg Oral Tablet tabletIndications :Essential hypertension TAKE 1 TAB BY MOUTH DAILY. 91 Tablet 1 07/20/2021 2 loratadine (CLARITIN) 10 mg Oral TabletIndications :Seasonal allergic rhinitis due to pollen Take 1 tablet by mouth once daily 63 Tablet 07/16/2021 2 metFORMIN (GLUCOPHAGE) 500 mg Oral Tablet TAKE 1 TAB BY MOUTH DAILY (WITH BREAKFAST). 91 Tablet 1 07/20/2021 2 oxybutynin (DITROPAN-XL) 10 mg Oral Tablet Extended Rel 24 hr Take 1 tablet by mouth twice daily 180 Tablet 08/20/2021 2 documented as of this encounter Discharge Disposition Disposition Code Departure Means Destination Home or Self Residential documented in this encounter ED Notes * Kimberly Gonzalez - 11/24/2021 7:12 PM EDT Patient ambulated to restroom with 2 person Assist. And wheelchair * Bryant Bowling, GRADE RECORDER - 11/24/2021 4:51 PM EDT Chief Complaint Patient presents with ??? Leg Swelling Leg swelling.. left worse than right Patient presents with multiple complaints. Reports she has had intermittent abdominal pain over thelast 3 months but is unable to describe it. She had 2 episodes of diarrhea 2 days ago. No blood in stools. Complains of nausea without vomiting. She is eating normally today. Denies need for nausea medication at this time. No recent recorded fevers. Complains of burning with urination for the last 2 weeks. Also complains of a 2-week history of difficulty breathing. She has chronic lower extremityedema which she states has been worse over the last 1 week and is greater in the left leg than right. Denies any history of congestive heart failure or kidney failure. No complaint of chest pain. Taking Lasix daily as directed. History provided by: Patient validation scientist used: No Patient History Allergies Allergen Reactions ??? Amitriptyline Nausea And Vomiting ??? Amoxil [Amoxicillin] Hives ??? Clarithromycin hives ??? Clindamycin Nausea Only ??? Egg Nausea Only ??? Naproxen Rash ??? Nexium [Esomeprazole Magnesium] Hives and Rash Blisters in Mouth Home Medications: Prior to Admission medications Medication Sig Start Date End Date Taking? Authorizing Provider albuterol (PROVENTIL) 2.5 mg /3 mL (0.083 %) Inhl Solution for Nebulization Take 3 mL by nebulization every 4 hours as needed for Wheezing. 02/24/21 Cristiane Shirley MD amLODIPine (NORVASC) 10 mg Oral Tablet TAKE 1 TAB BY MOUTH DAILY. 07/20/21 Cristiane Shirley MD aspirin 81 mg Oral Tablet, Delayed Release (E.C.) TAKE 1 TABLET BY MOUTH DAILY 10/24/20 Cristiane Shirley MD atorvastatin (LIPITOR) 20 mg Oral Tablet TAKE 1 TABLET BY MOUTH EVERY DAY 07/20/21 Cristiane Shirley MD [facility] Please fill with what her ins will cover 11/15/15 Cristiane Shirley MD CALCIUM ORAL Take 1 Tab by mouth daily. Provider, Historical cholecalciferol, vitamin D3, (VITAMIN D3) 25 mcg (1,000 unit) Oral Tablet Take 1 Tab by mouth daily. 09/14/19 Cristiane Shirley MD docusate sodium (COLACE) 100 mg Oral Capsule Take 1 capsule by mouth twice daily 10/29/21 Cristiane Shirley MD fluticasone propionate (FLONASE) 50 mcg/actuation Nasl [place], Suspension Use 1 spray(s) in each nostril once daily 08/29/21 Cristiane Shirley MD fUROsemide (LASIX) 40 mg Oral Tablet One tab daily and may take an extra if needed. 02/06/21 Cristiane Shirley MD lisinopriL (PRINIVIL;ZESTRIL) 20 mg Oral Tablet tablet TAKE 1 TAB BY MOUTH DAILY. 07/20/21 Cristiane Shirley MD loratadine (CLARITIN) 10 mg Oral Tablet Take 1 tablet by mouth once daily 07/16/21 Cristiane Shirley MD lubiprostone (AMITIZA) 24 mcg Oral Capsule TAKE ONE CAPSULE BY MOUTH TWICE A DAY. THIS REPLACES LINZESS. 05/03/20 Cristiane Shirley MD metFORMIN (GLUCOPHAGE) 500 mg Oral Tablet TAKE 1 TAB BY MOUTH DAILY (WITH BREAKFAST). 07/20/21 Cristiane Shirley MD Nebulizer Accessories Misc Kit Nebulizer accessories 02/24/21 Cristiane Shirley MD omeprazole (PRILOSEC) 20 mg Oral Capsule, Delayed Release(E.C.) TAKE 1 CAP BY MOUTH DAILY. 03/27/21 Cristiane Shirley MD omeprazole (PRILOSEC) 40 mg Oral Capsule, Delayed Release(E.C.) Take 1 capsule by mouth twice daily12/11/20 Jomar Kim MD oxybutynin (DITROPAN-XL) 10 mg Oral Tablet Extended Rel 24 hr Take 1 tablet by mouth twice daily 08/20/21 Cristiane Shirley MD Past Medical History: Past Medical History: Diagnosis Date ??? Anemia [...] CPAP OR BIPAP PER PATIENT ??? Ulcer Social History: reports that she quit smoking about 37 years ago. Her smoking use included cigarettes. She started smoking about 50 years ago. She has a 18.00 pack-year smoking history. She has neverused smokeless tobacco. She reports being sexually active and has had partner(s) who are male. She reports using the following method of control/protection: Post-menopausal. She reports that she does not drink alcohol and does not use drugs. E-Cigarettes (such as Vapes or Juul) Family History: Family History Problem Relation Age of Onset ??? Heart Disease Father ??? Cataracts Father ??? Diabetes Father ??? Cancer Maternal Grandmother ??? Colon Cancer Maternal Grandmother ??? Anesth Problems Neg Hx Surgical History: Past Surgical History: Procedure Laterality Date ??? ARTERY BIOPSY Right 01/06/2017 RIGHT TEMPORAL ARTERY BIOPSY ; Surgeon: Christa Chavez MD; Location: [facility]; Service: General ??? CARDIAC CATHETERIZATION 04/2015 ??? CHOLECYSTECTOMY 1990 ??? COLONOSCOPY ??? COLONOSCOPY 02/17/2013 Surgeon: Garett Holt MD; Location: [facility]; Service: ??? DENTAL SURGERY upper and lower teeth removed ??? UPPER GASTROINTESTINAL ENDOSCOPY ??? UPPER GASTROINTESTINAL ENDOSCOPY 02/17/2013 Surgeon: Garett Holt MD; Location: [facility]; Service: ??? UPPER GASTROINTESTINAL ENDOSCOPY N/A 07/26/2020 ESOPHAGOGASTRODUODENOSCOPY with biopsy; Surgeon: Jomar Kim MD; Location: [facility]; Service: Endoscopy ??? VENTRAL HERNIA REPAIR N/A 04/18/2020 [facility] ROBOTIC VENTRAL HERNIA REPAIR WITH MESH ; Surgeon: Regan Butts MD; Location: [facility]; Service: General Review of Systems Review of Systems Constitutional: Negative for chills and fever. HENT: Negative. Eyes: Negative. Respiratory: Positive for shortness of breath. Negative for cough. Cardiovascular: Negative for chest pain, palpitations and leg swelling. Gastrointestinal: Positive for abdominal pain and nausea. Negative for diarrhea and vomiting. Genitourinary: Positive for dysuria. Negative for frequency, hematuria, vaginal bleeding and vaginal discharge. Musculoskeletal: Negative. Skin: Negative for rash. Neurological: Negative. Psychiatric/Behavioral: Negative. All other systems reviewed and are negative. Physical Exam Pulse 65, temperature 97 ??F (36.1 ??C), temperature source Skin, resp. rate 20, weight 250 lb (113.4 kg), SpO2 95 %, not currently . Physical Exam Vitals and nursing note reviewed. Constitutional: Appearance: Normal appearance. HENT: Head: Normocephalic and atraumatic. Mouth/Throat: Mouth: Mucous membranes are moist. Cardiovascular: Rate and Rhythm: Normal rate and regular rhythm. Heart sounds: Normal heart sounds. Pulmonary: Effort: Pulmonary effort is normal. No respiratory distress. Breath sounds: Normal breath sounds. Abdominal: General: Bowel sounds are normal. Palpations: Abdomen is soft. Tenderness: There is abdominal tenderness (Generalized abdominal tenderness.). Musculoskeletal: Cervical back: Normal range of motion and neck supple. Skin: General: Skin is warm and dry. Comments: 2+ pitting edema noted to the right lower leg. 3+ pitting edema noted to the left lower leg. Neurological: General: No focal deficit present. Mental Status: She is alert and oriented to person, place, and time. Psychiatric: Mood and Affect: Mood normal. Procedures Radiology/EKG/Labs: Results for orders placed or performed during the hospital encounter of 11/24/21 CT ANGIOGRAM PULMONARY W CONTRAST Narrative CT PULMONARY ANGIOGRAM, 11/24/2021 6:39 PM CLINICAL HISTORY: Pain, shortness of breath, swelling, elevated d-dimer. COMPARISON: No prior CT chest for comparison. TECHNIQUE: PE protocol CT angiogram of the chest with 75 mL Isovue 370 intravenous contrast material with 2-D multiplanar reconstructions and 3-D MIP reconstructions. Automated exposure control for dose reduction was used. FINDINGS: No acute pulmonary embolism. Enlargement of the right and left pulmonary arteries measuring 2.5 cm and 3 cm, respectively. Mild left basilar subsegmental atelectasis/scarring. No confluent opacity, pneumothorax, or pleural effusion. Patent airways. Nonspecific enlarged right hilar lymph nodes measuring 2.7 x 1.7 cm and 2 x 1.5 cm. No acute osseous abnormality. Impression 1. No acute pulmonary embolism. 2. Enlargement of the right and left pulmonary arteries, which can be seen with pulmonary arterial hypertension. 3. Right hilar lymphadenopathy is nonspecific and possibly reactive. A 3 month follow-up CT chest is recommended. - CBC WITH DIFF Result Value Ref Range WBC 9.3 3.7 - 10.3 x10(3)/mcL RBC 3.79 (L) 3.90 - 5.20 x10(6)/mcL Hgb 10.2 (L) 11.2 - 15.7 g/dL Hct 34.0 34.0 - 45.0 % MCV 89.7 80.0 - 100.0 fL MCH 26.9 26.0 - 34.0 pg MCHC 30.0 (L) 30.7 - 35.5 g/dL RDW 14.7 <=14.9 % Platelet 231 155 - 369 x10(3)/mcL MPV 10.0 8.8 - 12.5 fL Neut Percent 66.1 % Imm Gran% 0.2 % Lymph Percent 22.1 % Victoria Percent 8.9 % Eos Percent 2.3 % Baso Percent 0.4 % Neut # 6.1 1.6 - 6.1 x10(3)/mcL IMMGRAN# 0.0 0.0 - 0.1 x10(3)/mcL Lymph # 2.0 1.2 - 3.9 x10(3)/mcL Victoria # 0.8 0.3 - 0.9 x10(3)/mcL Eos# 0.2 0.0 - 0.5 x10(3)/mcL Baso # 0.0 0.0 - 0.1 x10(3)/mcL COMPREHENSIVE METABOLIC PANEL Result Value Ref Range Sodium 137 136 - 145 mmol/L Potassium 3.5 3.5 - 5.0 mmol/L Chloride 107 98 - 107 mmol/L Total CO2 26 22 - 29 mmol/L Anion Gap 4 (L) 7 - 16 mmol/L Calcium 9.4 8.8 - 10.4 mg/dL Glucose Lvl 102 (H) 82 - 100 mg/dL BUN 9 8 - 23 mg/dL Creatinine 0.69 0.51 - 1.30 mg/dL Albumin 3.8 3.2 - 4.6 gm/dL Total Protein 7.1 6.4 - 8.3 gm/dL Bili Total 0.2 0.1 - 1.3 mg/dL ALT 7 <=41 U/L AST 10 <=40 U/L Alk Phos 83 36 - 123 U/L eGFR ([facility]) 96 >=60 mL/min/1.73 m2 URINALYSIS Result Value Ref Range UA Color Yellow UA Appear Clear Clear UA Glucose Negative Negative mg/dL UA Ketones Negative Negative mg/dL UA Blood Moderate (A) Negative UA pH 6.0 5.0 - 8.0 pH UA Protein Negative Negative mg/dL UA Urobilinogen 1.0 <=1 mg/dL UA Bili Negative Negative UA Nitrite Negative Negative UA Leuk Est Small (A) Negative UA Spec Grav >=1.030 1.001 - 1.035 no units UA WBC 15 (H) 0 - 4 /HPF UA RBC 20 (H) 0 - 3 /HPF UA Squam Epi 1+ /LPF UA Mucus Trace /LPF UA Bacteria 2+ (A) Negative /HPF LIPASE LEVEL Result Value Ref Range Lipase Lvl 17 13 - 60 U/L D-DIMER Result Value Ref Range D-Dimer 882 (H) <=500 ng/mL FEU Narrative For patients between the ages of 50 - 75, an age-adjusted D-Dimer cut-off in combination with non-high clinical probability may be considered for the exclusion of venous thromboembolism (calculation = age x 10). KALE Lucia, et al. Faye [employer] Captain Med. 2017;166(5):361-363 FERNANDO Hendrix, et al. [employer]aye [employer] Med. 2015;(163):701-711. Christa Lambert et al. SHIVA. 2014;(11):6958-1293. NT PROBNP Result Value Ref Range NT Pro-BNP 592 (H) <=353 pg/mL Narrative An NT pro-BNP level less than 300 pg/mL in any patient, regardless of age, effectively rules out acute CHF with a 99% negative predictive value. Ingestion of min doses of biotin (>5 mg/day) taken within 8 hours of drawing blood sample can interfere with this immunoassay test. TROPONIN-T HIGH SENSITIVITY BASELINE W/ REFLEX Result Value Ref Range eg-mPkceeszi-Q 9 <14 ng/L Narrative Ingestion of min doses of biotin (>5 mg/day) taken within 8 hours of drawing blood sample can interfere with this immunoassay test. EK EKG 12 LEAD Narrative NOTICE: Preliminary tracing available for review; Final Interpretation by physician to follow. Impression [facility] Test Date: 2021-11-24 Pat Name: ALYSSA CAMPOS Department: DEPID Room: 07 Gender: Female Sample Carrier: MARY : 1955 Requested By: BRYANT Pozo Order Number: [id number] Reading MD: Measurements Intervals [place] Rate: 70 P: 52 MD: 213 QRS: -52 QRSD: 92 T: 43 QT: 353 QTc: 382 Interpretive Statements SINUS RHYTHM WITH FIRST DEGREE AV BLOCK WITH FREQUENT ECTOPIC PREMATURE COMPLEXES PATTERN CONSISTENT WITH PULMONARY DISEASE LEFT ANTERIOR FASCICULAR BLOCK ED Course: Appropriate laboratory and radiology studies reviewed Patient presents with multiple complaints. Laboratory, radiology findings noted above. Lovenox injection given here. Outpatient vascular ultrasound ordered for the left leg to be done tomorrow. Patient instructed to call centralized scheduling to schedule this exam. Follow-up with family doctor forresults and reevaluation. Also instructed to follow-up with family doctor for incidental findings on CT chest. Prompt follow-up instructions given. ED Clinical Impression: Lower extremity edema Positive D-dimer Dyspnea Abdominal pain Critical Care time Condition at Discharge/Transfer from Department: Stable This chart was completed using voice recognition technology and may contain unintended errors Bryant Bowling, RYAN 11/24/211909 Cosigned by Bouchra Up MD at 11/24/2021 8:19 PM EDT Associated attestation - Bouchra Up MD - 11/24/2021 8:19 PM EDT EMERGENCY DEPARTMENT SUPERVISORY NOTE I have reviewed the chief complaint and history of present illness and review of systems as well asthe past medical, surgical and social history sections for this patient. I have examined this patient, and participated in the care of this patient. I performed a face to face evaluation of the patient. I have reviewed the pertinent clinical information including physical exam, labs, radiographic studies and the plan. This patient was seen in coordination with PA/SOW FARM MANAGER. Briefly, Alyssa Campos is a 66 y.o. female presented with multiple complaints including chest pain,abdominal pain and left foot/ankle swelling. CP - substernal, intermittent, for the last 2 weeks. Has had associated SOB. Abd pain also has beenfor 2 weeks, central, nonradiating. Left foot and ankle pain and swelling - has chronic swelling. On exam she is awake, alert, cooperative and chronically ill-appearing. CV: Regular rate and rhythm Lungs: Clear bilaterally Abdomen soft with right upper quadrant tenderness, no guarding rebound or peritoneal signs EKG Sinus rhythm at rate of70, intervals are normal. First degree AV block with MD interval 213. Frequent PACs. LAFB. Nonspecific STT changes. Ectopy is new compared to prior dated 04/18/20 66-year-old female who presented with multiple complaints. Work-up has been fairly unrevealing for clear etiology for symptoms. Troponins are reassuring, EKG is nonacute, CT shows no evidence for acute PE. Incidental findings are noted. DVT study will be obtained outpatient. Clinical Impression 1. Bilateral lower extremity edema 2. Abdominal pain, unspecified abdominal location 3. Dyspnea, unspecified type 4. Positive D-dimer PPE: This patient was seen during the Covid pandemic. The patient was provided a surgical mask which was worn throughout the encounter. I was wearing the recommended PPE while evaluating the patient. Disclaimer: Portions of this note may have been completed with [employer] voice recognition program. This chart was completed using voice recognition technology and may contain unintended errors documented in this encounter Plan of Treatment Upcoming Encounters Date Type Department Care Team (Late st Contact Info) Description 07/29/2024 9:00 AM EST Appointment [facility] [address] [place] [address] Jomar Kim MD [address] [place] [address] documented as of this encounter Goals Goal Patient Goal Type Associated Problems Recent Progress Patient-Stated? Author Blood Pressure < 140/90 Blood Pressure 110/72(04/09 2:44 PM EDT) No Rachel Rogers RMA BMI (Calculated) < 30 General 50.9(2023 2:44 PM EDT) No Rachel Rogers RMA Eat better, exercise, reach an ideal body weight General No Ni Clinton, relay dispatcher Healing General On track(12/03 9:18 AM EDT) [...] neuropathy weekly. ?? Refer to PCP and/or Public Policy Mediator, Vascular Specialist as indicated. ?? Monitor patient [...] Priority Date/Time Associated Diagnosis Comments SCANNED EKG 11/26/2021 8:[address] ANGIOGRAM PULMONARY W CONTRAST STAT 11/24/2021 6:39 PM EDT EXTRA LAND URINE CX STAT 11/24/2021 5 :41 PM EDT URINALYSIS STAT 11/24/2021 5:41 PM EDT URINE CULTURE (NO STAIN) Add-On 11/24/2021 5:41 PM EDT SALINE LOCK IV STAT 11/24/2021 5:27 PM EDT TROPONIN-T HIGH SENSITIVITY BASELINE W/ REFLEX STAT 11/24/2021 5:27 PM EDT D-DIMER STAT 11/24/2021 5:27 PM EDT CBC WITH DIFF STAT 11/24/2021 5:27 PM EDT NT PROBNP STAT 11/24/2021 5:27 PM EDT LIPASE LEVEL STAT 11/24/2021 5:27 PM EDT COMPREHENSIVE METABOLIC PANEL STAT 11/24/2021 5:27 PM EDT EK EKG 12 LEAD STAT 11/24/2021 5:24 PM EDT documented in this encounter Results * VA US LOWER EXTREMITY VENOUS LEFT (11/29/2021 3:54 PM EDT) Anatomical Region Laterality Modality Vascular, Thigh, Leg Electrocard iography 11/29/2021 3:16 PM EDT Impressions 11/29/2021 5:00 PM EDT ??CONCLUSIONS ??No evidence of deep vein thrombosis identified in the left lower extremity. ?No evidence of superficial vein thrombosis identified in the left lower extremity. ?No evidence of thrombosis is noted in the contralateral right common femoral vein. ?Poor visualization of the left calf veins due to habitus and vessel depth. ?? Narrative Procedure Note Austin Cabezas, DO - 11/29/2021 IMPRESSION CONCLUSIONS No evidence of deep vein thrombosis identified in the left lowerextremity. No evidence of superficial vein thrombosis identified in the left lowerextremity. No evidence of thrombosis is noted in the contralateral right commonfemoral vein. Poor visualization of the left calf veins due to habitus and vesseldepth. us Bryant Bowling APRN IMG VASCULAR ORDERABLES F inal Result * SCANNED EKG (11/26/2021 8:47 AM EDT) Anatomical Region Laterality Modality Other 11/26/2021 8:47 AM EDT us Unknown Provider IMG ECG ORDERABLES Final Result * CT ANGIOGRAM PULMONARY W CONTRAST (11/24/2021 6:39 PM EDT) Anatomical Region Laterality Modality Chest Computed Tomogra phy 11/24/2021 6:39 PM EDT Impressions 11/24/2021 6:55 PM EDT 1. ??No acute pulmonary embolism. 2. ??Enlargement of the right and left pulmonary arteries, which can be seen with pulmonary arterial hypertension. 3. ??Right hilar lymphadenopathy is nonspecific and possibly reactive. A 3 month follow-up CT chest is recommended. - Narrative 11/24/2021 6:[address] PULMONARY ANGIOGRAM, ??11/24/2021 6:39 PM CLINICAL HISTORY: ??Pain, shortness of breath, swelling, elevated d-dimer. COMPARISON: ??No prior CT chest for comparison. TECHNIQUE: ??PE protocol CT angiogram of the chest with 75 mL Isovue 370 intravenous contrast material with 2-D multiplanar reconstructions and 3-D MIP reconstructions. ??Automated exposure control for dose reduction was used. FINDINGS: No acute pulmonary embolism. Enlargement of the right and left pulmonary arteries measuring 2.5 cm and 3 cm, respectively. Mild left basilar subsegmental atelectasis/scarring. No confluent opacity, pneumothorax, or pleural effusion. Patent airways. Nonspecific enlarged right hilar lymph nodes measuring 2.7 x 1.7 cm and 2 x 1.5 cm. No acute osseous abnormality. Procedure Note Nito Srivastava MD - 11/24/2021 CT PULMONARY ANGIOGRAM, 11/24/2021 6:39 PM CLINICAL HISTORY: Pain, shortness of breath, swelling, elevatedd-dimer. COMPARISON: No prior CT chest for comparison. TECHNIQUE: PE protocol CT angiogram of the chest with 75 mL Isovue 370 intravenous contrast material with 2-D multiplanar reconstructions and 3-DMIP reconstructions. Automated exposure control for dose reduction wasused. FINDINGS: No acute pulmonary embolism. Enlargement of the right and left pulmonary arteries measuring 2.5 cm and 3 cm, respectively. Mild left basilar subsegmental atelectasis/scarring. No confluentopacity, pneumothorax, or pleural effusion. Patent airways. Nonspecific enlarged right hilar lymph nodes measuring 2.7 x 1.7 cm and 2x 1.5 cm. No acute osseous abnormality. IMPRESSION: 1. No acute pulmonary embolism. 2. Enlargement of the right and left pulmonary arteries, which can beseen with pulmonary arterial hypertension. 3. Right hilar lymphadenopathy is nonspecific and possibly reactive. A 3month follow-up CT chest is recommended. - Bryant Bowling APRN IMG CT ORDERABLES Final R esult * URINE CULTURE (NO STAIN) (11/24/2021 5:41 PM EDT) Culture Multiple bacterial species isolated from urine consistent with urogenital commensal organisms. 11/26/2021 6:09 PM EDT PREFERRED FileString Urine URINE SPECIMEN COLLECTION, CLEAN CATCH / Unknown 11/24/2021 5:41 PM EDT 11/24/2021 5:48 PM EDT Bryant Bowling GRADE RECORDER MICROBIOLOGY - GENERAL OR DERABLES Final Result [facility] [employer] [address] [facility] , [address] [place] [phone] * EXTRA LAND URINE CX (11/24/2021 5:41 PM EDT) Urine URINE SPECIMEN COLLECTION, CLEAN CATCH / Unknown 11/24/2021 5:41 PM EDT 11/24/2021 5:48 PM EDT Bryant Bowling GRADE RECORDER MICROBIOLOGY - GENERAL OR DERABLES Final Result Performing Organization Address City/[facility] Co de Phone Number [facility] [address] [place] [address] * (ABNORMAL) URINALYSIS (11/24/2021 5:41 PM EDT) UA Color Yellow 11/24/2021 6:02 PM EDT [facility] UA Appear Clear Clear 11/24/2021 6:02 PM EDT [facility] UA Glucose Negative Negative mg/dL 11/24/2021 6:02 PM EDT [facility] UA Ketones Negative Negative mg/dL 11/24/2021 6:02 PM EDT [facility] UA Blood Moderate(A) Negative 11/24/2021 6:02 PM EDT [facility] UA pH 6.0 5.0 - 8.0 pH 11/24/2021 6:02 PM EDT [facility] UA Protein Negative Negative mg/dL 11/24/2021 6:02 PM EDT [facility] UA Urobilinogen 1.0 <=1 mg/dL 6:02 PM EDT [facility] UA Bili Negative Negative 11/24/2021 6:02 PM EDT [facility] UA Nitrite Negative Negative 11/24/2021 6:02 PM EDT [facility] UA Leuk Est Small(A) Negative 11/24/2021 6:02 PM EDT [facility] UA Spec Grav >=1.030 1.001 - 1.035 no units 11/24/2021 6:02 PM EDT [facility] Comment:Reference range dano d for random specimens only. UA WBC 15(H) 0 - 4 /HPF 11/24/2021 6:02 PM EDT [facility] UA RBC 20(H) 0 - 3 /HPF 11/24/2021 6:02 PM EDT [facility] UA Squam Epi 1+ /LPF 11/24/2021 6:02 PM EDT [facility] UA Mucus Trace /LPF 11/24/2021 6:02 PM EDT [facility] UA Bacteria 2+(A) Negative /HPF 11/24/2021 6:02 PM EDT [facility] Urine URINE SPECIMEN COLLECTION, CLEAN CATCH / Unknown 11/24/2021 5:41 PM EDT 11/24/2021 5:48 PM EDT Bryant Bowling GRADE RECORDER URINE ORDERABLES Final Re sult [facility] [address] [place] [address] * TROPONIN-T HIGH SENSITIVITY BASELINE W/ REFLEX (11/24/2021 5:27 PM EDT) hn-iWwfczjbt-Y 9 <14 ng/L 11/24/2021 6:08 PM EDT [facility] Comment:See the website belo w for rule out [place] care pathway, conditions other than AMI that can cause elevated hs cTnT, and comparison of values from the 4th and 5th generation Isaiah tests. https://askmayoexpert.[facility].org/topic/clinical-answers/[email or web address]/cpm-[email or web address] 23902 Blood VENOUS BLOOD / Unknown Venipuncture / Unknown 11/24/2021 5:27 PM EDT 11/24/2021 5:48 PM EDT Narrative [facility] - 11/24/2021 6:08 PM EDT Ingestion of min doses of biotin (>5 mg/day) taken within 8 hours of drawing blood sample can interfere with this immunoassay test. Bryant Bowling GRADE RECORDER CHEMISTRY ORDERABLES Mercedes l Result Performing Organization Address [facility] de Phone Number [facility] [address] [place] [address] * (ABNORMAL) NT PROBNP (11/24/2021 5:27 PM EDT) NT Pro-BNP 592(H) <=353 pg/mL 11/24/2021 6:15 PM EDT [facility] Blood VENOUS BLOOD / Unknown Venipuncture / Unknown 11/24/2021 5:27 PM EDT 11/24/2021 5:48 PM EDT Narrative [facility] - 11/24/2021 6:15 PM EDT An NT pro-BNP level less than 300 pg/mL in any patient, regardless of age, effectively rules out acute CHF with a 99% negative predictive value. Ingestion of min doses of biotin (>5 mg/day) taken within 8 hours of drawing blood sample can interfere with this immunoassay test. Braynt Bowling [facility] CHEMISTRY ORDERABLES Merecdes l Result Performing Organization Address [facility] de Phone Number [facility] [address] [place] [address] * (ABNORMAL) D-DIMER (11/24/2021 5:27 PM EDT) D-Dimer 882(H) <=500 ng/mL FEU 11/24/2021 5:58 PM EDT [facility] Comment:This is an automated latex enhanced [...] VENOUS BLOOD / Unknown Venipuncture / Unknown 11/24/2021 5:27 PM EDT 11/24/2021 5:48 PM EDT Narrative [facility] - 11/24/2021 5:58 PM EDT For patients between the ages of 50 - 75, an age-adjusted D-Dimer cut-off in combination with non-high clinical probability may be considered for the exclusion of venous thromboembolism (calculation = age x 10). KALE Lucia, et al. [employer]. 2017;166(5):361-363 FERNANDO Hendrix, et al. [employer]. 2015;(163):701-711. Christa Lambert, et al. SHIVA. 2014;(11):5436-2903. Bryant Bowling APRN HEMATOLOGY ORDERABLES Fin al Result Performing Organization Address [facility] Co de Phone Number [facility] [address] [place], [place] [id number] * LIPASE LEVEL (11/24/2021 5:27 PM EDT) Lipase Lvl 17 13 - 60 U/L 11/24/2021 6:12 PM EDT [facility] Blood VENOUS BLOOD / Unknown Venipuncture / Unknown 11/24/2021 5:27 PM EDT 11/24/2021 5:48 PM EDT Bryant Bowling APRN CHEMISTRY ORDERABLES Mercedes l Result Performing Organization Address [facility] Co de Phone Number [facility] [address] [place], [place] [id number] * (ABNORMAL) COMPREHENSIVE METABOLIC PANEL (11/24/2021 5:27 PM EDT) Sodium 137 136 - 145 mmol/L 11/24/2021 6:20 PM EDT [facility] Potassium 3.5 3.5 - 5.0 mmol/L 11/24/2021 6:20 PM [facility] Chloride 107 98 - 107 mmol/L 11/24/2021 6:20 PM [facility] Total CO2 26 22 - 29 mmol/L 11/24/2021 6:20 PM [facility] Anion Gap 4(L) 7 - 16 mmol/L 11/24/2021 6:20 PM [facility] Calcium 9.4 8.8 - 10.4 mg/dL 11/24/2021 6:20 PM [facility] Glucose Lvl 102(H) 82 - 100 mg/dL 11/24/2021 6:20 PM [facility] BUN 9 8 - 23 mg/dL 11/24/2021 6:20 PM [facility] Creatinine 0.69 0.51 - 1.30 mg/dL 11/24/2021 6:20 PM [facility] Albumin 3.8 3.2 - 4.6 gm/dL 11/24/2021 6:20 PM [facility] Total Protein 7.1 6.4 - 8.3 gm/dL 11/24/2021 6:20 PM [facility] Bili Total 0.2 0.1 - 1.3 mg/dL 11/24/2021 6:20 PM [facility] ALT 7 <=41 U/L 11/24/2021 6:20 PM [facility] AST 10 <=40 U/L 11/24/2021 6:20 PM [facility] Alk Phos 83 36 - 123 U/L 11/24/2021 6:20 PM [facility] eGFR (CKD-EPIcr 2020) 96 >=60 mL/min/1.7 3 m2 11/24/2021 6:20 PM [facility] Comment:Estimated GFR was ca lculated using the CKD-EPIcr (2020) equation refit without race. The equation is recommended by the National Kidney Foundation - [place] of Nephrology Task Force. Blood VENOUS BLOOD / Unknown Venipuncture / Unknown 11/24/2021 5:27 PM EDT 11/24/2021 5:48 PM EDT Bryant Bowling GRADE RECORDER CHEMISTRY ORDERABLES Mercedes l Result [facility] [address] [place] [address] * (ABNORMAL) CBC WITH DIFF (11/24/2021 5:27 PM EDT) WBC 9.3 3.7 - 10.3 x10(3)/mcL 11/24/2021 5:57 PM EDT [facility] RBC 3.79(L) 3.90 - 5.20 x10(6)/mcL 11/24/2021 5:57 PM EDT [facility] Hgb 10.2(L) 11.2 - 15.7 g/dL 11/24/2021 5:57 PM EDT [facility] Hct 34.0 34.0 - 45.0 % 11/24/2021 5:57 PM EDT [facility] MCV 89.7 80.0 - 100.0 fL 11/24/2021 5:57 PM EDT [facility] MCH 26.9 26.0 - 34.0 pg 11/24/2021 5:57 PM EDT [facility] MCHC 30.0(L) 30.7 - 35.5 g/dL 11/24/2021 5:57 PM EDT [facility] RDW 14.7 <=14.9 % 11/24/2021 5:57 PM EDT [facility] Platelet 231 155 - 369 x10(3)/mcL 11/24/2021 5:57 PM EDT [facility] MPV 10.0 8.8 - 12.5 fL 11/24/2021 5:57 PM EDT [facility] Neut Percent 66.1 % 11/24/2021 5:57 PM EDT [facility] Comment:Neutrophils equals s egs plus bands Imm Gran% 0.2 % 11/24/2021 5:57 PM EDT [facility] Comment:Automated count of m etamyelocytes, myelocytes and promyelocytes. Lymph Percent 22.1 % 11/24/2021 5:57 PM EDT [facility] Victoria Percent 8.9 % 11/24/2021 5:57 PM EDT [facility] Eos Percent 2.3 % 11/24/2021 5:57 PM EDT [facility] Baso Percent 0.4 % 11/24/2021 5:57 PM EDT [facility] Neut # 6.1 1.6 - 6.1 x10(3)/[facility] 11/24/2021 5:57 PM EDT [facility] Comment:Neutrophils equals s egs plus bands IMMGRAN# 0.0 0.0 - 0.1 x10(3)/[facility] 11/24/2021 5:57 PM EDT [facility] Comment:Automated count of m etamyelocytes, myelocytes and promyelocytes. An absolute IG <0.1 is reported as 0.0. Lymph # 2.0 1.2 - 3.9 x10(3)/[facility] 11/24/2021 5:57 PM EDT [facility] Victoria # 0.8 0.3 - 0.9 x10(3)/[facility] 11/24/2021 5:57 PM EDT [facility] Eos# 0.2 0.0 - 0.5 x10(3)/[facility] 11/24/2021 5:57 PM EDT [facility] Baso # 0.0 0.0 - 0.1 x10(3)/[facility] 11/24/2021 5:57 PM EDT [facility] Blood VENOUS BLOOD / Unknown Venipuncture / Unknown 11/24/2021 5:27 PM EDT 11/24/2021 5:48 PM EDT us Bryant Bowling GRADE RECORDER HEMATOLOGY ORDERABLES Fin al Result [facility] [address] [place] [address] * EK EKG 12 LEAD (11/24/2021 5:24 PM EDT) Anatomical Region Laterality Modality Electrocardiogra phy 11/24/2021 5:32 PM EDT Impressions 11/24/2021 9:30 PM EDT ?[facility] ? Test Date: ?2021-11-24 Pat Name: ? ALYSSA CAMPOS ?Department: ?? DEPID ? Room: ? 07 Gender: ? Female ? Sample Carrier: ?? SAS : ?1955 ? Requested By: BRYANT BOWLING D Order Number: [id number] ?Reading MD: ?? Joe Diaz, MD ? Measurements Intervals ?[place] ? Rate: ? 70 ? P: ?52 MD: ? 213 ?QRS: ?-52 QRSD: ? 92 ? T: ?43 QT: ? 353 ? QTc: ?382 ? Interpretive Statements SINUS RHYTHM [place] LEFT ANTERIOR FASCICULAR BLOCK Electronically Signed On 11-24-2021 21:30:50 EDT by Joe Diaz MD Narrative Procedure Note Joe Diaz MD - 11/24/[address] [facility] Test Date: 2021-11-24 Pat Name: ALYSSA CAMPOS Department: DEPID Room: Gender: Female Sample Carrier: MARY : 1955 Requested By: BRYANT Pozo Order Number: [id number] Reading MD: Joe Diaz MD Measurements Intervals [place] Rate: 70 P: 52 MD: 213 QRS: -52 QRSD: 92 T: 43 QT: 353 QTc: 382 Interpretive Statements SINUS RHYTHM [place] LEFT ANTERIOR FASCICULAR BLOCK Electronically Signed On 11-24-2021 21:30:50 EDT by Joe Diaz MD Bryant Bowling GRADE RECORDER IMG ECG ORDERABLES Final Result documented in this encounter Visit Diagnoses Diagnosis Bilateral lower extremity edema- Primary Edema Abdominal pain, unspecified abdominal location Dyspnea, unspecified type Positive D-dimer Abnormal coagulation profile Bilateral lower extremity edema Edema documented in this encounter Administered Medications Inactive Administered Medications - up to 1 most recent administrations Medication Order MAR Action Action Date Dose Rate Site enoxaparin (LOVENOX) injection 170 mg 170 mg (rounded from 170.1 mg = 1.5 mg/kg ? 113.4 kg), Subcutaneous, ONCE, 1 dose, On 11/24/21 at 1915 Given 11/24/2021 7:32 PM EDT 170 mg Abdominal Tissue iopamidoL (ISOVUE-370) 76 % injection (LOW) 75 mL 75 mL, Intravenous, ONCE PRN, 1 dose, Starting on 11/24/21 at 1814, Until 11/24/21 at 1837, Radiography/Imaging, Radiology Procedure, VESICANT , CT (Contrasts) Given 11/24/2021 6:37 PM EDT 75 mL Right Arm sodium chloride 0.9% IV line flush 50 mL 50 mL, Intravenous, at 999 mL/hr, PRN, Starting on 11/24/21 at 1727, Until 11/25/21 at 0002, Line Care, Flush with 50 mL after IVPB to insure complete administration of the dose. May use the saline infusion to back flush IVPB tubing as needed., Use this order to document priming and flushing IV line after medication administration. sodium chloride 0.9% syringe 5-10 mL 5-10 mL, Intravenous, PRN, Starting on 11/24/21 at 1727, Until 11/25/21 at 0002, Line Care, Flush with 5 mL saline pre/post IVP, and 5 mL prior to IVPB or blood product administration. Protocol for PERIPHERAL IV saline lock maintenance, flush with 3-5 mL saline syringe every 8 hours., Flush peripheral lines every 12 hours, central lines every 8 hours, and after IV medication sodium chloride 0.9% syringe Intravenous, ONCE PRN, 1 dose, Starting on 11/24/21 at 1814, Until 11/24/21 at 1838, Line Care, Flush peripheral lines every 12 hours, central lines every 8 hours, and after IV medication, CT (Contrasts) Given 11/24/2021 6:38 PM EDT 20 mL Right Arm documented in this encounter Active and Recently Administered Medications Times are shown in EDT. Scheduled Medication Order 11/22/2021 11/23/2021 11/24/2021 enoxaparin (LOVENOX) injection 170 mg (COMPLETED) 170 mg (rounded from 170.1 mg = 1.5 mg/kg ? 113.4 kg), Subcutaneous, ONCE, 1 dose, On 11/24/21 at 1915 1932 (Given - Provid er: Adelina Bonilla RN) PRN Medication Order 11/22/2021 11/23/2021 11/24/2021 iopamidoL (ISOVUE-370) 76 % injection (LOW) 75 mL (COMPLETED) 75 mL, Intravenous, ONCE PRN, 1 dose, Starting on 11/24/21 at 1814, Until 11/24/21 at 1837, Radiography/Imaging, Radiology Procedure, VESICANT , CT (Contrasts) 183 (Given - Provid er: Kelly Gilbert, RT) sodium chloride 0.9% IV line flush 50 mL 50 mL, Intravenous, at 999 mL/hr, PRN, Starting on 11/24/21 at 1727, Until 11/25/21 at 0002, Line Care, Flush with 50 mL after IVPB to insure complete administration of the dose. May use the saline infusion to back flush IVPB tubing as needed., Use this order to document priming and flushing IV line after medication administration. sodium chloride 0.9% syringe 5-10 mL 5-10 mL, Intravenous, PRN, Starting on 11/24/21 at 1727, Until 11/25/21 at 0002, Line Care, Flush with 5 mL saline pre/post IVP, and 5 mL prior to IVPB or blood product administration. Protocol for PERIPHERAL IV saline lock maintenance, flush with 3-5 mL saline syringe every 8 hours., Flush peripheral lines every 12 hours, central lines every 8 hours, and after IV medication sodium chloride 0.9% syringe (COMPLETED) Intravenous, ONCE PRN, 1 dose, Starting on 11/24/21 at 1814, Until 11/24/21 at 1838, Line Care, Flush peripheral lines every 12 hours, central lines every 8 hours, and after IV medication, CT (Contrasts) 183 (Given - Provid er: Kelly Gilbert, RT) documented in this encounter Orders Medications Ordered That Edwin ht Not Have Been Administered Count Last Ordered Date First Ordered Date sodium chloride 0.9% IV line flush 50 mL 1 11/24/2021 sodium chloride 0.9% syringe 5-10 mL 1 11/06 IV Count Last Ordered Date First Orde red Date SALINE LOCK IV 1 11/24/2021 documented in this encounter Additional Health Concerns Assessment Noted Time A fall risk assessment has been complete d for the patient 07/14/2021 12:13 PM EDT documented as of this encounter Care Teams Senior Climate Advisor Relationship Specialty Start Date End Date Cristiane Shirley MD [address] [place] [address] PCP - General Family Medicine 08/20/18 12/29/23 Garett Holt MD Internal Medicine-Gastroenterology 12/22/12 Ruiz Stokes MD [address] [place] [address] Internal Medicine-Cardiovascular Disease 07/25/14 Yenny Schwab MD [address] [address] Internal Medicine-Rheumatology 12/11/16 documented as of this encounter
--- OUTSIDE RECORDS SUMMARY | 2024-07-22 16:02 | XMS_ITS | Encounter Summary ---
Author Organization [place] [address] [place] [address] Care Team Providers Care Slasher Tender Helper Name Role Phone Garett Holt MD Unavailable [phone] Ruiz Stokes MD Unavailable [phone] Yenny Schwab MD Unavailable [phone] Cristiane Shirlye MD Primary Care Provider Reason for Visit * Reason Onset Date Comments Medication Refill 03/10/2022 Encounter Details Date Type Department Care Team (Late st Contact Info) Description 03/10/2022 Refill [facility] [address] [place] [address] Cristiane Shirley MD [address] [place] [address] Medication Refill Social History Tobacco Use Types [...] Date Recorded PHQ-2 Total Score 0 12/01/2021 [employer] [facility] - Occupational Stress [...] 12/01/2021 10:24 AM EDT Rodolfo kSelton MA documented in this encounter Ordered Prescriptions Prescription Sig Dispense Quantity Refills Last Filled Start Date End Date docusate sodium (COLACE) 100 mg Oral Capsule Take 1 Capsule by mouth 2 times daily. 60 Capsule 2 03/12/2022 documented in this encounter Plan of Treatment Upcoming Encounters Date Type Department Care Team (Late st Contact Info) Description 07/29/2024 9:00 AM EST Appointment [facility] [facility] [place], [place] [phone] Jomar Kim MD [address] [place] [address] documented as of this encounter Goals Goal Patient Goal Type Associated Problems Recent Progress Patient-Stated? Author Blood Pressure < 140/90 Blood Pressure 110/72(04/09 2:44 PM EDT) No Rachel Rogers RMA BMI (Calculated) < 30 General 50.9(2023 2:44 PM EDT) No Rachel Rogers RMA Eat better, exercise, reach an ideal body weight General No Ni Clinton, electronic technologist Healing General On track(12/03 9:18 AM EDT) [...] neuropathy weekly. ?? Refer to PCP and/or Master Brewer, Vascular Specialist as indicated. ?? Monitor patient [...] Capsule by mouth 2 times daily. Reorder 02/05/2022 03/10/2022 documented as of this encounter Additional Health Concerns Assessment Noted Time A fall risk assessment has been complete d for the patient 07/14/2021 12:13 PM EDT documented as of this encounter Care Teams Slasher Tender Helper Relationship Specialty Start Date End Date Cristiane Shirley MD [address] [place] [address] PCP - General Family Medicine 08/20/18 12/29/23 Garett Holt MD Internal Medicine-Gastroenterology 12/22/12 Ruiz Stokes MD [address] [place] [id number] Internal Medicine-Cardiovascular Disease 07/25/14 Yenny Schwab MD [address] [place] [address] Internal Medicine-Rheumatology 12/11/16 documented as of this encounter
--- OUTSIDE RECORDS SUMMARY | 2024-07-22 16:02 | XMS_ITS | Encounter Summary ---
Author Organization [place] [address] Care Team Providers Care Senior Software Manager Name Role Phone Garett Holt MD Unavailable [phone] Ruiz Stokes MD Unavailable [phone] Yenny Schwab MD Unavailable [phone] Cristiane Shirley MD Primary Care Provider Reason for Visit * Reason Comments Medication Refill Encounter Details Date Type Department Care Team (Late st Contact Info) Description 08/19/2021 Refill [facility] [address] [place] [address] Cristiane Shirley MD [address] [place] [address] Medication Refill Social History Tobacco Use Types [...] Date Recorded PHQ-2 Total Score 0 09/29/2020 [facility] [place] [facility] - Occupational [...] 1:07 PM EST Jessee Skelton MA documented as of this encounter Mental Status * Because of a physical, mental or emotional condition, does this person have serious difficulty concentrating, remembering or making decisions? Answer Entry Date Author No 09/29/2020 1:07 PM EST Jessee Skelton MA documented in this encounter Ordered Prescriptions Prescription Sig Dispense Quantity Refills Last Filled Start Date End Date oxybutynin (DITROPAN-XL) 10 mg Oral Tablet Extended Rel 24 hr Take 1 tablet by mouth twice daily 180 Tablet 08/20/2021 12/03/2021 documented in this encounter Plan of Treatment Upcoming Encounters Date Type Department Care Team (Late st Contact Info) Description 07/29/2024 9:00 AM EST Appointment [facility] [address] [place], [place] [phone] Jomar Kim MD [address] [place] [address] documented as of this encounter Goals Goal Patient Goal Type Associated Problems Recent Progress Patient-Stated? Author Blood Pressure < 140/90 Blood Pressure 110/72(04/09 2:44 PM EDT) No Rachel Rogers RMA BMI (Calculated) < 30 General 50.9(2023 2:44 PM EDT) No Rachel Rogers RMA Eat better, exercise, reach an ideal body weight General No Ni Clinton, manager psychiatry Healing General On track(12/03 9:18 AM EDT) [...] neuropathy weekly. ?? Refer to PCP and/or Beef Killer, Vascular Specialist as indicated. ?? Monitor patient [...] Discontinue Reason Start Date End Da te oxybutynin (DITROPAN-XL) 10 mg Oral Tablet Extended Rel 24 hr Take 1 tablet by mouth twice daily 05/07/2021 08/20/2021 documented as of this encounter Additional Health Concerns Assessment Noted Time A fall risk assessment has been complete d for the patient 07/14/2021 12:13 PM EDT documented as of this encounter Care Teams Senior Software Manager Relationship Specialty Start Date End Date Cristiane Shirley MD [address] [place] [address] PCP - General Family Medicine 08/20/18 12/29/23 Garett Holt MD Internal Medicine-Gastroenterology 12/22/12 Ruiz Stokes MD [address] [place] [address] Internal Medicine-Cardiovascular Disease 07/25/14 Yenny Schwab MD [address] [place] [address] Internal Medicine-Rheumatology 12/11/16 documented as of this encounter
--- OUTSIDE RECORDS SUMMARY | 2024-07-22 16:02 | XMS_ITS | Encounter Summary ---
Author Organization [place] [address] Care Team Providers Care Cardiac Cath Rn Name Role Phone Garett Holt MD Unavailable [phone] Ruiz Stokes MD Unavailable [phone] Yenny Schwab MD Unavailable [phone] Cristiane Shirley MD Primary Care Provider Reason for Visit * Reason Onset Date Comments Medication Refill 09/29/2021 Encounter Details Date Type Department Care Team (Late st Contact Info) Description 09/29/2021 Refill [facility] [address] [place] [address] Cristiane Shirley MD 100 [place] [address] Medication Refill Social History Tobacco Use Types [...] Date Recorded PHQ-2 Total Score 0 09/29/2020 [facility] of Occupat ional [facility] - Occupational Stress Questionnaire Answer [...] 1:07 PM EST Jessee Skelton MA * Does this person have [...] by mouth 2 times daily. 60 Capsule 10/01/2021 documented in this encounter Plan of Treatment Upcoming Encounters Date Type Department Care Team (Late st Contact Info) Description 07/29/2024 9:00 AM EST Appointment [facility] [address] [place], [place] [id number] Jomar Kim MD [address] [place] [address] documented as of this encounter Goals Goal Patient Goal Type Associated Problems Recent Progress Patient-Stated? Author Blood Pressure < 140/90 Blood Pressure 110/72(04/09 2:44 PM EDT) No Rachel Rogers RMA BMI (Calculated) < 30 General 50.9(2023 2:44 PM EDT) No Rachel Rogers RMA Eat better, exercise, reach an ideal body weight General No Ni Clinton, rock drill operator Healing General On track(12/03 9:18 AM [...] neuropathy weekly. ?? Refer to PCP and/or Bologna Lacer, Vascular Specialist as indicated. ?? Monitor patient [...] Take 1 capsule by mouth twice daily Reorder 01/15/2021 09/29/2021 documented as of this encounter Additional Health Concerns Assessment Noted Time A fall risk assessment has been complete d for the patient 07/14/2021 12:13 PM EDT documented as of this encounter Care Teams Cardiac Cath Rn Relationship Specialty Start Date End Date Cristiane Shirley MD 100 [place] [address] PCP - General Family Medicine 08/20/18 12/29/23 Garett Holt MD Internal Medicine-Gastroenterology 12/22/12 Ruiz Stokes MD [address] [place] [address] Internal Medicine-Cardiovascular Disease 07/25/14 Yenny Schwab MD 1 [place] [address] Internal Medicine-Rheumatology 12/11/16 documented as of this encounter
--- OUTSIDE RECORDS SUMMARY | 2024-07-22 16:02 | XMS_ITS | Encounter Summary ---
Author Organization [place] [address] Care Team Providers Care Soda Jerker Name Role Phone Garett Holt MD Unavailable [phone] Ruiz Stokes MD Unavailable [phone] Yenny Schwab MD Unavailable [phone] Cristiane Shirley MD Primary Care Provider [phone] Reason for Visit * Reason Onset Date Comments ED Follow-Up Call 11/27/2021 Encounter Details Date Type Department Care Team (Late st Contact Info) Description 11/27/2021 Patient Outreach [facility] [address] [place] [address] Angelina Thomas, BS, COS ED Follow-Up Call Social History Tobacco Use Types Packs/Day Years [...] Date Recorded PHQ-2 Total Score 0 09/29/2020 [facility] of Occupat ional [facility] - Occupational Stress Questionnaire Answer [...] Yes 09/29/2020 1:07 PM EST Jessee Skelton robert Bella MA * Because of a physical, mental or emotional condition, does this person have difficulty doing errands alone such as visiting a doctor's office or shopping? Answer Date of Assessment Author Yes 09/29/2020 1:07 PM EST Jessee Skelton robert ShayneCHAO griffin documented as of this encounter Mental Status * Because of a physical, mental or emotional condition, does this person have serious difficulty concentrating, remembering or making decisions? Answer Entry Date Author No 09/29/2020 1:07 PM EST Jessee Skelton robert ShayneCHAO griffin documented in this encounter Progress Notes * Angelina Thomas BS, COS - 11/27/2021 10:30 AM EDT Attempted to reach patient regarding ED follow up. Letter was sent via [employer]. documented in this encounter Plan of Treatment Upcoming Encounters Date Type Department Care Team (Late st Contact Info) Description 07/29/2024 9:00 AM EST Appointment [facility] [address] [facility] [place], [place] [id number] Jomar Kim MD [address] [place] [address] documented as of this encounter Goals Goal Patient Goal Type Associated Problems Recent Progress Patient-Stated? Author Blood Pressure < 140/90 Blood Pressure 110/72(04/09 2:44 PM EDT) No Rachel Rogers RMA BMI (Calculated) < 30 General 50.9(2023 2:44 PM EDT) No Rachel Rogers RMA Eat better, exercise, reach an ideal body weight General No Ni Clinton, operations supervisor 2nd shift Healing General On track(12/03 9:18 AM EDT) [...] weekly. ?? Refer to PCP and/or Beef Trimmer, Vascular Specialist as indicated. ?? Monitor patient [...] documented as of this encounter Care Teams Soda Jerker Relationship Specialty Start Date End Date Cristiane Shirley MD 100 [place] [address] PCP - General Family Medicine 08/20/18 12/29/23 Garett Holt MD Internal Medicine-Gastroenterology 12/22/12 Ruiz Stokes MD [address] [place] [id number] Internal Medicine-Cardiovascular Disease 07/25/14 Yenny Schwab MD [address] [facility] [address] [place] [id number] Internal Medicine-Rheumatology 12/11/16 documented as of this encounter
--- OUTSIDE RECORDS SUMMARY | 2024-07-22 16:02 | XMS_ITS | Encounter Summary ---
Author Organization [place] [address] Care Team Providers Care Rehab Services Aide Name Role Phone Garett Holt MD Unavailable [phone] Ruiz Stokes MD Unavailable [phone] Yenny Schwab MD Unavailable [phone] Cristiane Shirley MD Primary Care Provider [phone] Reason for Referral * Vascular Imaging (Emergency) - Closed Specialty Diagnoses / Procedures Referred By Contac t Referred To Contact Radiology Diagnoses Bilateral lower extremity edema Procedures [facility] LOWER EXTREMITY VENOUS LEFT Bryant Bowling APRN [address] [facility] [place] [address] Phone: tel: fax: Referral ID Status Reason Start Date Expiration Date Visits Re quested Visits Authorized [id number] Closed 11/24/2021 11/25/2023 1 1 Reason for Visit * Vascular Imaging (Emergency) - Closed Specialty Diagnoses / Procedures Referred By Contac t Referred To Contact Radiology Diagnoses Bilateral lower extremity edema Procedures [facility] LOWER EXTREMITY VENOUS LEFT Bryant Bowling APRN [address] [facility] [place] [address] Phone: tel: fax: Referral ID Status Reason Start Date Expiration Date Visits Re quested Visits Authorized [id number] Closed 11/24/2021 11/25/2023 1 1 Encounter Details Date Type Department Care Team (Latest Contact Info) Description 11/29/2021 2:58 PM EDT - 11/29/2021 11:59 PM EDT Hospital Encounter [facility] [address] [place], [place] [id number] Bryant Bowling, CROP DUSTER HELPER [address] [place] [address] Bilateral lower extremity edema Discharge Disposition: Home or Self Care [...] Date Recorded PHQ-2 Total Score 0 09/29/2020 [facility] of Occupat ional Health - [...] Jessee Parekh MA documented in this encounter Medications at [...] Tab 11 09/14/2019 Nebulizer Accessories Misc KitIndications:Ac kamila bronchitis, unspecified organism Nebulizer accessories 1 Kit 02/24/2021 aspirin 81 mg Oral Tablet, Delayed Release (E.C.) TAKE 1 TABLET BY MOUTH DAILY 91 Tab 11 10/24/2020 2 atorvastatin (LIPITOR) 20 mg Oral Tablet TAKE 1 TABLET BY MOUTH EVERY DAY 91 Tablet 1 07/20/2021 2 docusate sodium (COLACE) 100 mg Oral Capsule Take 1 capsule by mouth twice daily 60 Capsule 11/26/2021 2 lisinopriL (PRINIVIL;ZESTRIL ) 20 mg Oral [...] [address]. [address] Jomar Kim MD [address] [place] [address] documented as of this encounter [...] weekly. ?? Refer to PCP and/or Online Journalist, Vascular Specialist as indicated. ?? Monitor patient [...] Procedure Name Priority Date/Time Associated Diagnosis Comments [facility] LOWER EXTREMITY VENOUS LEFT STAT 11/29/2021 3:54 PM EDT Bilateral lower extremity edema documented in this encounter Results * [facility] LOWER EXTREMITY VENOUS LEFT (11/29/2021 3:54 PM [...] depth. ?? Narrative Procedure Note Austin Cabezas, - 11/29/2021 IMPRESSION CONCLUSIONS No evidence of deep vein thrombosis identified in the left lowerextremity. No evidence of superficial vein thrombosis identified in the left lowerextremity. No evidence of thrombosis is noted in the contralateral right commonfemoral vein. Poor visualization of the left calf veins due to habitus and vesseldepth. Bryant Nohelia Bowling CROP DUSTER HELPER IMG VASCULAR ORDERABLES F inal Result documented in this encounter Visit Diagnoses Diagnosis Bilateral lower extremity edema Edema documented in this encounter Additional Health Concerns Assessment Noted Time A fall risk assessment has been complete d for the patient 07/14/2021 12:13 PM EDT documented as of this encounter Care Teams Rehab Services Aide Relationship Specialty Start Date End Date Cristiane Shirley MD 100 [place] [address] PCP - General Family Medicine 08/20/18 12/29/23 Garett Holt MD Internal Medicine-Gastroenterology 12/22/12 Ruiz Stokes MD [address] [place] [id number] Internal Medicine-Cardiovascular Disease 07/25/14 Yenny Schwab MD 651 [facility] [address] [place] [address] Internal Medicine-Rheumatology 12/11/16 documented as of this encounter
--- OUTSIDE RECORDS SUMMARY | 2024-07-22 16:02 | XMS_ITS | Encounter Summary ---
Author Organization [place] [address] Care Team Providers Care Industrial Cleaner Name Role Phone Garett Holt MD Unavailable [phone] Ruiz Stokes MD Unavailable [phone] Yenny Schwab MD Unavailable [phone] Cristiane Shirley MD Primary Care Provider Reason for Visit * Reason Comments Medication Refill Encounter Details Date Type Department Care Team (Late st Contact Info) Description 10/28/2021 Refill [facility] [address] [place] [address] Cristiane Shirley MD [address] [place] [address] Medication Refill Social History Tobacco Use Types [...] Date Recorded PHQ-2 Total Score 0 09/29/2020 [facility] of Occupat ional Health - Occupational Stress [...] by mouth twice daily 60 Capsule 10/29/2021 documented in this encounter Plan of Treatment Upcoming Encounters Date Type Department Care Team (Late st Contact Info) Description 07/29/2024 9:00 AM EST Appointment [facility] [address] [place], [place] [id number] Jomar Kim MD [address] [place] [address] documented as of this encounter Goals Goal Patient Goal Type Associated Problems Recent Progress Patient-Stated? Author Blood Pressure < 140/90 Blood Pressure 110/72(04/09 2:44 PM EDT) No Rachel Rogers RMA BMI (Calculated) < 30 General 50.9(2023 2:44 PM EDT) No Rachel Rogers RMA Eat better, exercise, reach an ideal body weight General No Ni Clinton, foam rubber fabricator Healing General On track(12/03 9:18 AM EDT) [...] neuropathy weekly. ?? Refer to PCP and/or Economics Lecturer, Vascular Specialist as indicated. ?? Monitor patient [...] 1 Capsule by mouth 2 times daily. 10/01/2021 10/29/2021 documented as of this encounter Additional Health Concerns Assessment Noted Time A fall risk assessment has been complete d for the patient 07/14/2021 12:13 PM EDT documented as of this encounter Care Teams Industrial Cleaner Relationship Specialty Start Date End Date Cristiane Shirley MD [address] [place] [address] PCP - General Family Medicine 08/20/18 12/29/23 Garett Holt MD Internal Medicine-Gastroenterology 12/22/12 Ruiz Stokes MD [address] [place] [address] Internal Medicine-Cardiovascular Disease 07/25/14 Yenny Schwab MD 651 [facility] [address] [place] [id number] Internal Medicine-Rheumatology 12/11/16 documented as of this encounter
--- OUTSIDE RECORDS SUMMARY | 2024-07-22 16:02 | XMS_ITS | Encounter Summary ---
Author Organization [place] [address] Care Team Providers Care Musical Performer Name Role Phone Garett Holt MD Unavailable [phone] Ruiz Stokes MD Unavailable [phone] Yenny Schwab MD Unavailable [phone] Cristiane Shirley MD Primary Care Provider [phone] Reason for Visit * Reason Comments Medication Refill Encounter Details Date Type Department Care Team (Late st Contact Info) Description 08/29/2021 Refill [facility] [address] [place] [address] Cristiane Shirley MD 100 [place] [address] Medication Refill Social History Tobacco Use Types [...] Date Recorded PHQ-2 Total Score 0 09/29/2020 [facility] of Occupat ional Health - Occupational Stress [...] Date fluticasone propionate (FLONASE) 50 mcg/actuation Nasl [place], SuspensionIndicati ons:ETD (Eustachian tube dysfunction), right Use 1 spray(s) in each nostril once daily 16 g 2 08/29/2021 2 documented in this encounter Plan of Treatment Upcoming Encounters Date Type Department Care Team (Late st Contact Info) Description 07/29/2024 9:00 AM EST Appointment [facility] [address] [place], [place] [id number] Jomar Kim MD [address] [place] [address] documented as of this encounter Goals Goal Patient Goal Type Associated Problems Recent Progress Patient-Stated? Author Blood Pressure < 140/90 Blood Pressure 110/72(04/09 2:44 PM EDT) No Rachel Rogers RMA BMI (Calculated) < 30 General 50.9(2023 2:44 PM EDT) No Rachel Rogers RMA Eat better, exercise, reach an ideal body weight General No Ni Clinton, metal casket assembler Healing General On track(12/03 9:18 AM EDT) [...] neuropathy weekly. ?? Refer to PCP and/or Tailing Machine Operator, Vascular Specialist as indicated. ?? [...] te fluticasone propionate (FLONASE) 50 mcg/actuation Nasl [place], SuspensionIndications:ET D (Eustachian tube dysfunction), right Use 1 spray(s) in each nostril once daily 05/21/2021 08/29/2021 documented as of this encounter Additional Health Concerns Assessment Noted Time A fall risk assessment has been complete d for the patient 07/14/2021 12:13 PM EDT documented as of this encounter Care Teams Musical Performer Relationship Specialty Start Date End Date Cristiane Shirley MD 100 [place] [address] PCP - General Family Medicine 08/20/18 12/29/23 Garett Holt MD Internal Medicine-Gastroenterology 12/22/12 Ruiz Stokes MD [address] [place] [address] Internal Medicine-Cardiovascular Disease 07/25/14 Yenny Schwab MD 651 [facility] Building [address] [place], [place] [address] Internal Medicine-Rheumatology 12/11/16 documented as of this encounter
--- OUTSIDE RECORDS SUMMARY | 2024-07-22 16:02 | XMS_ITS | Encounter Summary ---
Author Organization [place] [address] Care Team Providers Care Commercial Installer Name Role Phone Garett Holt MD Unavailable [phone] Ruiz Stokes MD Unavailable [phone] Yenny Schwab MD Unavailable [phone] Cristiane Shirley MD Primary Care Provider Reason for Visit * Reason Comments Medication Refill Encounter Details Date Type Department Care Team (Late st Contact Info) Description 11/26/2021 Refill [facility] 100 [place] [address] Cristiane Shirley MD [address] [place] [address] Medication Refill Social History Tobacco Use Types [...] Date Recorded PHQ-2 Total Score 0 09/29/2020 [facility] of Occupat ional Health - Occupational Stress [...] by mouth twice daily 60 Capsule 11/26/2021 documented in this encounter Plan of Treatment Upcoming Encounters Date Type Department Care Team (Late st Contact Info) Description 07/29/2024 9:00 AM EST Appointment [facility] [address] [place], [place] [id number] Jomar Kim MD [address] [place] [address] documented as of this encounter Goals Goal Patient Goal Type Associated Problems Recent Progress Patient-Stated? Author Blood Pressure < 140/90 Blood Pressure 110/72(04/09 2:44 PM EDT) No Rachel Rogers RMA BMI (Calculated) < 30 General 50.9(2023 2:44 PM EDT) No Rachel Rogers RMA Eat better, exercise, reach an ideal body weight General No Ni Clinton, microfilm camera operator Healing General On track(12/03 9:18 AM [...] neuropathy weekly. ?? Refer to PCP and/or Zipper Joiner, Vascular Specialist as indicated. ?? Monitor patient [...] Take 1 capsule by mouth twice daily 10/29/2021 11/26/2021 documented as of this encounter Additional Health Concerns Assessment Noted Time A fall risk assessment has been complete d for the patient 07/14/2021 12:13 PM EDT documented as of this encounter Care Teams Commercial Installer Relationship Specialty Start Date End Date Cristiane Shirley MD 100 [place] [address] PCP - General Family Medicine 08/20/18 12/29/23 Garett Holt MD Internal Medicine-Gastroenterology 12/22/12 Ruiz Stokes MD [address] [place] [address] Internal Medicine-Cardiovascular Disease 07/25/14 Yenny Schwab MD [address] [address] Internal Medicine-Rheumatology 12/11/16 documented as of this encounter
--- OUTSIDE RECORDS SUMMARY | 2024-07-22 16:02 | XMS_ITS | Encounter Summary ---
Author Organization [place] [address] Care Team Providers Care Microarray Operations Vice President Name Role Phone Garett Holt MD Unavailable [phone] Ruiz Stokes MD Unavailable [phone] Yenny Schwab MD Unavailable [phone] Cristiane Shirley MD Primary Care Provider [phone] Reason for Visit * Reason Comments Medication Refill Encounter Details Date Type Department Care Team (Late st Contact Info) Description 12/10/2021 Refill [facility] 100 [place] [address] Cristiane Shirley MD 100 [place] [address] Medication Refill Social History Tobacco Use Types [...] Date Recorded PHQ-2 Total Score 0 12/01/2021 [facility] of Occupat ional Health - Occupational Stress [...] capsule by mouth twice daily 60 Capsule 12/10/2021 documented in this encounter Plan of Treatment Upcoming Encounters Date Type Department Care Team (Late st Contact Info) Description 07/29/2024 9:00 AM EST Appointment [facility] [address] [place] [address] Jomar Kim MD [address] [place] [address] documented as of this encounter Goals Goal Patient Goal Type Associated Problems Recent Progress Patient-Stated? Author Blood Pressure < 140/90 Blood Pressure 110/72(04/09 2:44 PM EDT) No Rachel Rogers RMA BMI (Calculated) < 30 General 50.9(2023 2:44 PM EDT) No Rachel Rogers RMA Eat better, exercise, reach an ideal body weight General No Ni Clinton, engineering department chair Healing General On track(12/03 9:18 AM EDT) [...] neuropathy weekly. ?? Refer to PCP and/or Color Television Console Monitor, Vascular Specialist as indicated. ?? Monitor patient [...] Take 1 capsule by mouth twice daily 11/26/2021 12/10/2021 documented as of this encounter Additional Health Concerns Assessment Noted Time A fall risk assessment has been complete d for the patient 07/14/2021 12:13 PM EDT documented as of this encounter Care Teams Microarray Operations Vice President Relationship Specialty Start Date End Date Cristiane Shirley MD [address] [place] [address] PCP - General Family Medicine 08/20/18 12/29/23 Garett Holt MD Internal Medicine-Gastroenterology 12/22/12 Ruiz Stokes MD [address] [place] [id number] Internal Medicine-Cardiovascular Disease 07/25/14 Yenny Schwab MD [address] [facility] Building [address] [place] [address] Internal Medicine-Rheumatology 12/11/16 documented as of this encounter
--- OUTSIDE RECORDS SUMMARY | 2024-07-22 16:02 | XMS_ITS | Encounter Summary ---
Author Organization [place] [address] Care Team Providers Care Brownell Operator Name Role Phone Garett Holt MD Unavailable [phone] Ruiz Stokes MD Unavailable [phone] Yenny Schwab MD Unavailable [phone] Cristiane Shirley MD Primary Care Provider Reason for Visit * Reason Comments Medication Refill Encounter Details Date Type Department Care Team (Late st Contact Info) Description 12/02/2021 Refill [facility] 100 [place] [address] Cristiane Shirley MD 100 [place] [address] Medication Refill Social History Tobacco Use Types [...] Date Recorded PHQ-2 Total Score 0 12/01/2021 [facility] of Occupat ional Health - Occupational Stress [...] 1 TABLET BY MOUTH DAILY 90 Tablet 12/03/2021 07/17/2022 lisinopriL (PRINIVIL;ZESTRIL) 20 mg Oral Tablet tabletIndications: Essential hypertension TAKE 1 TAB BY MOUTH DAILY. 91 Tablet 1 12/03/2021 05/27/2022 metFORMIN (GLUCOPHAGE) 500 mg Oral Tablet TAKE 1 TAB BY MOUTH DAILY (WITH BREAKFAST). 90 Tablet 12/03/2021 07/17/2022 atorvastatin (LIPITOR) 20 mg Oral Tablet TAKE 1 TABLET BY MOUTH EVERY DAY 91 Tablet 2 12/03/2021 04/29/2022 documented in this encounter Miscellaneous Notes * Telephone Encounter - Jamila Ayala CPhT - 12/03/2021 12:10 PM EDT aspirin 81 mg Medication Refill Protocol not available for this medication. Routed to office staff. atorvastatin (LIPITOR) 20 mg Medication Refill Protocol passed. [facility] Action: Approved refills to noted follow-up date by provider or protocol if no follow-up date noted. used appt on 12/01/21 metFORMIN (GLUCOPHAGE) 500 mg Medication Refill Protocol failed due to labs or vitals. personal injury legal assistant Reason: A1c not on file within 6 months personal injury legal assistant Action: Defer to office. Patient needs labwork or vitals completed. Routed to office staff for outreach. This diagnosis was last assessed on 12/01/21. amLODIPine (NORVASC) 10 mg Medication refill request deferred to office staff. personal injury legal assistant Reason: Medication discontinued or inactive on the medication list lisinopriL (PRINIVIL;ZESTRIL) 20 mg Medication Refill Protocol passed. personal injury legal assistant Action: Approved refills to noted follow-up date by provider or protocol if no follow-up date noted. documented in this encounter Plan of Treatment Upcoming Encounters Date Type Department Care Team (Late st Contact Info) Description 07/29/2024 9:00 AM EST Appointment [facility] [address] [place], [place] [address] Jomar Kim MD [address] [place] [address] documented as of this encounter Goals Goal Patient Goal Type Associated Problems Recent Progress Patient-Stated? Author Blood Pressure < 140/90 Blood Pressure 110/72(04/09 2:44 PM EDT) No Rachel Rogers RMA BMI (Calculated) < 30 General 50.9(2023 2:44 PM EDT) No Rachel Rogers RMA Eat better, exercise, reach an ideal body weight General No Ni Clinton, keyboard action assembler Healing General On track(12/03 9:18 AM [...] neuropathy weekly. ?? Refer to PCP and/or Collaborating Supervising Physician, Vascular Specialist as indicated. ?? Monitor patient [...] te atorvastatin (LIPITOR) 20 mg Oral Tablet TAKE 1 TABLET BY MOUTH EVERY DAY 07/20/2021 12/03/2021 lisinopriL (PRINIVIL;ZESTRIL) 20 mg Oral Tablet tabletIndications:Essenti al hypertension TAKE 1 TAB BY MOUTH DAILY. 07/20/2021 12/03/2021 aspirin 81 mg Oral Tablet, Delayed Release (E.C.) TAKE 1 TABLET BY MOUTH DAILY 10/24/2020 12/03/2021 metFORMIN (GLUCOPHAGE) 500 mg Oral Tablet TAKE 1 TAB BY MOUTH DAILY (WITH BREAKFAST). 07/20/2021 12/03/2021 documented as of this encounter Additional Health Concerns Assessment Noted Time A fall risk assessment has been complete d for the patient 07/14/2021 12:13 PM EDT documented as of this encounter Care Teams Brownell Operator Relationship Specialty Start Date End Date Cristiane Shirley MD 100 [place] [address] PCP - General Family Medicine 08/20/18 12/29/23 Garett Holt MD Internal Medicine-Gastroenterology 12/22/12 Ruiz Stokes MD [address] [place] [address] Internal Medicine-Cardiovascular Disease 07/25/14 Yenny Schwab MD 651 [facility] Building [address] [place] [address] Internal Medicine-Rheumatology 12/11/16 documented as of this encounter
--- OUTSIDE RECORDS SUMMARY | 2024-07-22 16:02 | XMS_ITS | Encounter Summary ---
Author Organization [facility] [address] Care Team Providers Care Cancer Program Consultant Name Role Phone Garett Holt MD Unavailable [phone] Ruiz Stokes MD Unavailable [phone] Yenny Schwab MD Unavailable [phone] Cristiane Shirley MD Primary Care Provider [phone] Encounter Details Date Type Department Care Team (Latest Contact Info) Description 11/29/2021 Travel Social History Tobacco Use Types Packs/Day [...] Date Recorded PHQ-2 Total Score 0 09/29/2020 [facility] [place] of Occupat ional Health - Occupational Stress [...] Jessee Skelton MA documented in this encounter Plan of Treatment Upcoming Encounters Date Type Department Care Team (Late st Contact Info) Description 07/29/2024 9:00 AM EST Appointment [facility] [address] [place] [address] Jomar Kim MD [address] [place] [address] documented as of this encounter [...] weekly. ?? Refer to PCP and/or Outside Sales, Vascular Specialist as indicated. ?? Monitor patient [...] documented as of this encounter Care Teams Cancer Program Consultant Relationship Specialty Start Date End Date Cristiane Shirley MD [address] [place], [place] [id number] PCP - General Family Medicine 08/20/18 12/29/23 Garett Holt MD Internal Medicine-Gastroenterology 12/22/12 Ruiz Stokes MD [address] [place] [address] Internal Medicine-Cardiovascular Disease 07/25/14 Yenny Schwab MD [address] [address] Internal Medicine-Rheumatology 12/11/16 documented as of this encounter
--- OUTSIDE RECORDS SUMMARY | 2024-07-22 16:02 | XMS_ITS | Encounter Summary ---
Author Organization [place] [address] Care Team Providers Care Cassandra Architect Name Role Phone Garett Holt MD Unavailable [phone] Ruiz Stokes MD Unavailable [phone] Yenny Schwab MD Unavailable [phone] Cristiane Shirley MD Primary Care Provider Reason for Visit * Reason Comments Edema Chest Pain Diabetes Encounter Details Date Type Department Care Team (Late st Contact Info) Description 12/01/2021 9:45 AM EDT Office Visit [facility] [address] [place] [address] Cristiane Shirley MD [address] [place] [address] Essential hypertension (Primary Dx); Cardiac murmur; Peripheral edema; Encounter for screening mammogram for breast cancer; PMR (polymyalgia rheumatica) (HCC); Atherosclerosis of aorta (HCC); Body mass index (BMI) 40.0-44.9, adult (HCC); Type 2 diabetes mellitus without complication, [...] Date Recorded PHQ-2 Total Score 0 12/01/2021 [facility] of Occupat ional Health [...] Sign Reading Time Taken Comments Blood Pressure 118/80 12/01/2021 10:25 AM EDT Pulse - - Temperature 36.7 ??C (98 ??F) 12/01/2021 10:25 AM EDT Respiratory Rate - - Oxygen Saturation - - Inhaled Oxygen Concentration - - Weight 113.4 kg (250 lb) 12/01/2021 10:25 AM EDT Height 162.6 cm (5' 4 ) 12/01/2021 10:25 AM EDT Body Mass Index 42.91 12/01/2021 10:25 AM EDT documented in this encounter Functional [...] Filled Start Date End Date spironolactone (ALDACTONE) 50 mg Oral TabletIndications: Essential hypertension,Perip heral edema Take 1 Tablet by mouth Twice daily diuretic. Also for blood pressure 60 Tablet 6 12/01/2021 2 documented in this encounter Progress Notes * Cristiane Shirley MD - 12/01/2021 9:45 AM EDT Vitals: 12/01/21 1025 BP: 118/80 Temp: 98 ??F (36.7 ??C) Weight: 250 lb (113.4 kg) Height: 5' 4 (1.626 m) SUBJECTIVE: Chief Complaint Patient presents with ??? Edema ??? Chest Pain ??? Diabetes HPI: Edema This is a new problem. The current episode started in the past 7 days. The problem occurs constantly. The problem has been unchanged. Associated symptoms include chest pain. Pertinent negatives include no coughing. Chest Pain This is a recurrent problem. The current episode started 3 to 5 days ago. The problem occurs intermittently. Associated symptoms include leg swelling. Pertinent negatives include no coughing or wheezing. Diabetes She presents for her follow-up diabetic visit. She has type 2 diabetes mellitus. Her disease coursehas been stable. Associated symptoms include chest pain. Pt is here today for a follow up for edema and chest pain Diabetes: Alyssa following up today for diabetes. Current symptoms/problems include none. Current monitoring regimen: home blood tests - daily Home blood sugar records: trend: stable Any episodes of hypoglycemia? no Current diet: diabetic Current exercise: none Known diabetic complications: none Cardiovascular risk factors: diabetes mellitus Weight trend: Body mass index is 42.91 kg/m??. Wt Readings from Last 3 Encounters: 12/01/21 250 lb (113.4 kg) 11/24/21 250 lb (113.4 kg) 07/14/21 248 lb (112.5 kg) A1c trend: Lab Results Component Value Date HGBA1C 5.6 02/24/2021 HGBA1C 5.6 05/25/2020 HGBA1C 6.3 (H) 11/09/2019 Renal trend: Lab Results Component Value Date GFRAFRAM 96 02/24/2021 GFRAFRAM 104 05/18/2020 GFRAFRAM 113 04/27/2020 Lab Results Component Value Date GFRNONAFRAM 83 02/24/2021 GFRNONAFRAM 90 05/18/2020 GFRNONAFRAM 98 04/27/2020 Review of Systems Constitutional: Negative. HENT: Negative. Respiratory: Negative for cough and wheezing. Cardiovascular: Positive for chest pain and leg swelling. Gastrointestinal: Negative. Genitourinary: Negative. Musculoskeletal: Negative. Neurological: Negative. Hematological: Negative. Psychiatric/Behavioral: Negative. OBJECTIVE: Physical Exam Vitals and nursing note reviewed. HENT: Head: Normocephalic. Cardiovascular: Rate and Rhythm: Normal rate. Heart sounds: Murmur heard. Pulmonary: Effort: Pulmonary effort is normal. Breath sounds: No wheezing. Abdominal: Palpations: Abdomen is soft. Tenderness: There is no abdominal tenderness. Skin: General: Skin is warm. Neurological: General: No focal deficit present. Psychiatric: Mood and Affect: Mood normal. Assessment Diagnoses and all orders for this visit: Essential hypertension - spironolactone (ALDACTONE) 50 mg Oral Tablet; Take 1 Tablet by mouth Twice daily diuretic. Also for blood pressure Dispense: 60 Tablet; Refill: 6 Cardiac murmur Peripheral edema - spironolactone (ALDACTONE) 50 mg Oral Tablet; Take 1 Tablet by mouth Twice daily diuretic. Also for blood pressure Dispense: 60 Tablet; Refill: 6 Encounter for screening mammogram for breast cancer - MM MAMMO DIGITAL SHILO SCREEN BILAT; Future PMR (polymyalgia rheumatica) (HCC) (Chronic) stable Atherosclerosis of aorta (HCC) (Chronic) stable Body mass index (BMI) 40.0-44.9, adult (HCC) (Chronic) Continue diet changes Type 2 diabetes mellitus without complication, without long-term current use of insulin (HCC) (Chronic) stable Other orders - PNEUMOCOCCAL POLYSACCHARIDE VACCINE 23-VALENT =>2YO SQ/IM - VARICELLA ZOSTER VACCINE RECOMBINANT IM documented in this encounter Plan of Treatment Upcoming Encounters Date Type Department Care Team (Late st Contact Info) Description 07/29/2024 9:00 AM EST Appointment [facility] [address] [place] [address] Jomar Kim MD [address] [place] [address] documented as of this encounter Goals Goal Patient Goal Type Associated Problems Recent Progress Patient-Stated? Author Blood Pressure < 140/90 Blood Pressure 110/72(04/09 2:44 PM EDT) No Rachel Rogers RMA BMI (Calculated) < 30 General 50.9(2023 2:44 PM EDT) No Rachel Rogers RMA Eat better, exercise, reach an ideal body weight General No Ni Clinton manager data center Healing General On track(12/03 9:18 AM EDT) [...] neuropathy weekly. ?? Refer to PCP and/or Extruder Operator Multiple, Vascular Specialist as indicated. ?? Monitor patient [...] of this encounter Visit Diagnoses Diagnosis Essential hypertension- Primary Unspecified essential hypertension Cardiac murmur Undiagnosed cardiac murmurs Peripheral edema Edema Encounter for screening mammogram for breast cancer PMR (polymyalgia rheumatica) (HCC) Polymyalgia rheumatica Atherosclerosis of aorta (HCC) Atherosclerosis of aorta Body mass index (BMI) 40.0-44.9, adult (HCC) Type 2 diabetes mellitus without complication, without long-term current use of insulin (HCC) documented in this encounter Discontinued Medications Medication Sig Discontinue Reason Start Date End Da te omeprazole (PRILOSEC) 20 mg Oral Capsule, Delayed Release(E.C.) TAKE 1 CAP BY MOUTH DAILY. DELETE-Therapy completed 03/27/2021 12/01/2021 amLODIPine (NORVASC) 10 mg Oral TabletIndications:Essent ial hypertension TAKE 1 TAB BY MOUTH DAILY. Side effects 07/20/2021 12/01/2021 documented as of this encounter Orders Immunization/Injection Count Last Ordered Date First Ordered Date PNEUMOCOCCAL POLYSACCHARIDE VACCINE 23-VALENT =>2YO SQ/IM 1 12/01/2021 VARICELLA ZOSTER VACCINE RECOMBINANT IM 1 0 12/01/2021 documented in this encounter Additional Health Concerns Assessment Noted Time A fall risk assessment has been complete d for the patient 07/14/2021 12:13 PM EDT documented as of this encounter Care Teams Cassandra Architect Relationship Specialty Start Date End Date Cristiane Shirley MD [address] [place] [address] PCP - General Family Medicine 08/20/18 12/29/23 Garett Holt MD Internal Medicine-Gastroenterology 12/22/12 Ruiz Stokes MD [address] [place] [address] Internal Medicine-Cardiovascular Disease 07/25/14 Yenny Schwab MD [address] [address] Internal Medicine-Rheumatology 12/11/16 documented as of this encounter
--- OUTSIDE RECORDS SUMMARY | 2024-07-22 16:02 | XMS_ITS | Encounter Summary ---
Author Organization [place] [address] Care Team Providers Care Vinyl Top Installer Name Role Phone Garett Holt MD Unavailable [phone] Ruiz Stokes MD Unavailable [phone] Yenny Schwab MD Unavailable [phone] Cristiane Shirley MD Primary Care Provider [phone] Reason for Visit * Reason Onset Date Comments Medication Problem 12/06/2021 Encounter Details Date Type Department Care Team (Late st Contact Info) Description 12/06/2021 Telephone [facility] [address] [place] [address] An[facility] Redd MA [facility] [address] [place] [address] Medication Problem Social History Tobacco Use Types Packs/Day Years [...] Assessment Author No 12/01/2021 10:24 AM EDRodolfo Mckinght MA documented as of this encounter Mental [...] by mouth daily. 90 Tablet 2 12/06/2021 documented in this encounter Miscellaneous Notes * Addendum Note - Soniya Morgan RMA - 12/06/2021 5:41 PM EDTAddended by: SONIYA MORGAN on: 12/06/2021 05:41 PM Modules accepted: Orders * Telephone Encounter - Soniya Morgan RMA - 12/06/2021 5:41 PM EDT Med resent * Telephone Encounter - Cristiane Shirley MD - 12/06/2021 5:20 PM EDT Should be one a day * Telephone Encounter - Anahi Redd MA - 12/06/2021 9:28 AM EDT [facility] has a question regarding the oxybutynin... shows she is to take BID. But it is a 24 hour tablet... please let them know. documented in this encounter Plan of Treatment Upcoming Encounters Date Type Department Care Team (Late st Contact Info) Description 07/29/2024 9:00 AM EST Appointment [facility] [address] [place] [address] Jomar Kim MD [address] [place] [address] documented as of this encounter Goals Goal Patient Goal Type Associated Problems Recent Progress Patient-Stated? Author Blood Pressure < 140/90 Blood Pressure 110/72(04/09 2:44 PM EDT) No Rachel Rogers RMA BMI (Calculated) < 30 General 50.9(2023 2:44 PM EDT) No Rachel Rogers RMA Eat better, exercise, reach an ideal body weight General No Ni Clinton, payroll accounting specialist Healing General On track(12/03 9:18 AM [...] neuropathy weekly. ?? Refer to PCP and/or Statistical Technician, Vascular Specialist as indicated. ?? Monitor [...] Take 1 tablet by mouth twice daily Reorder 12/03/2021 12/06/2021 documented as of this encounter Additional Health Concerns Assessment Noted Time A fall risk assessment has been complete d for the patient 07/14/2021 12:13 PM EDT documented as of this encounter Care Teams Vinyl Top Installer Relationship Specialty Start Date End Date Cristiane Shirley MD [address] [place] [address] PCP - General Family Medicine 08/20/18 12/29/23 Garett Holt MD Internal Medicine-Gastroenterology 12/22/12 Ruiz Stokes MD [address] [place] [address] Internal Medicine-Cardiovascular Disease 07/25/14 Yenny Schwab MD 651 [facility] [address] [place] [address] Internal Medicine-Rheumatology 12/11/16 documented as of this encounter
--- OUTSIDE RECORDS SUMMARY | 2024-07-22 16:02 | XMS_ITS | Encounter Summary ---
Author Organization [place] [address] Care Team Providers Care Repairer Handtools Name Role Phone Garett Holt MD Unavailable [phone] Ruiz Stokes MD Unavailable [phone] Yenny Schwab MD Unavailable [phone] Cristiane Shirley MD Primary Care Provider [phone] Reason for Visit * Reason Onset Date Comments Medication Refill 02/04/2022 Encounter Details Date Type Department Care Team (Late st Contact Info) Description 02/04/2022 Refill [facility] [address] [place] [address] Cristiane Shirley MD [address] [place] [address] Medication Refill Social History Tobacco Use Types [...] Recorded PHQ-2 Total Score 0 12/01/2021 [facility] of Occupat ional Health - [...] by mouth 2 times daily. 60 Capsule 02/05/2022 documented in this encounter Plan of Treatment Upcoming Encounters Date Type Department Care Team (Late st Contact Info) Description 07/29/2024 9:00 AM EST Appointment [facility] [address] [place], [place] [id number] Jomar Kim MD [address] [place] [address] documented as of this encounter Goals Goal Patient Goal Type Associated Problems Recent Progress Patient-Stated? Author Blood Pressure < 140/90 Blood Pressure 110/72(04/09 2:44 PM EDT) No Rachel Rogers RMA BMI (Calculated) < 30 General 50.9(2023 2:44 PM EDT) No Rachel Rogers RMA Eat better, exercise, reach an ideal body weight General No Ni Clinton, director semiconductor Healing General On track(12/03 9:18 AM EDT) [...] neuropathy weekly. ?? Refer to PCP and/or Recording Studio Set Up Worker, Vascular Specialist as indicated. ?? Monitor [...] 1 capsule by mouth twice daily Reorder 12/10/2021 02/04/2022 documented as of this encounter Additional Health Concerns Assessment Noted Time A fall risk assessment has been complete d for the patient 07/14/2021 12:13 PM EDT documented as of this encounter Care Teams Repairer Handtools Relationship Specialty Start Date End Date Cristiane Shirley MD [address] [place] [address] PCP - General Family Medicine 08/20/18 12/29/23 Garett Holt MD Internal Medicine-Gastroenterology 12/22/12 Ruiz Stokes MD [address] [place] [id number] Internal Medicine-Cardiovascular Disease 07/25/14 Yenny Schwab MD [address] [place] [address] Internal Medicine-Rheumatology 12/11/16 documented as of this encounter
--- OUTSIDE RECORDS SUMMARY | 2024-07-22 16:02 | XMS_ITS | Encounter Summary ---
Author Organization [place] [address] Care Team Providers Care Sport Shoe Spike Assembler Name Role Phone Garett Holt MD Unavailable [phone] Ruiz Stokes MD Unavailable [phone] Yenny Schwab MD Unavailable [phone] Cristiane Shirley MD Primary Care Provider [phone] Reason for Visit * Reason Comments Medication Refill Encounter Details Date Type Department Care Team (Late st Contact Info) Description 12/03/2021 Refill [facility] [address] [place] [address] Cristiane Shirley MD [address] [place] [address] Medication Refill Social History Tobacco Use Types [...] Date Recorded PHQ-2 Total Score 0 12/01/2021 [facility] [place] of Occupat ional Health - Occupational [...] tablet by mouth twice daily 180 Tablet 12/03/2021 12/06/2021 documented in this encounter Plan of Treatment Upcoming Encounters Date Type Department Care Team (Late st Contact Info) Description 07/29/2024 9:00 AM EST Appointment [facility] [address] [place] [address] Jomar Kim MD [address] [place] [address] documented as of this encounter Goals Goal Patient Goal Type Associated Problems Recent Progress Patient-Stated? Author Blood Pressure < 140/90 Blood Pressure 110/72(04/09 2:44 PM EDT) No Rachel Rogers RMA BMI (Calculated) < 30 General 50.9(2023 2:44 PM EDT) No Rachel Rogers RMA Eat better, exercise, reach an ideal body weight General No Ni Clinton, tire mold tester Healing General On track(12/03 9:18 AM [...] neuropathy weekly. ?? Refer to PCP and/or Product Support Technician, Vascular Specialist as indicated. ?? Monitor [...] Take 1 tablet by mouth twice daily 08/20/2021 12/03/2021 documented as of this encounter Additional Health Concerns Assessment Noted Time A fall risk assessment has been complete d for the patient 07/14/2021 12:13 PM EDT documented as of this encounter Care Teams Sport Shoe Spike Assembler Relationship Specialty Start Date End Date Cristiane Shirely MD [address] [place] [address] PCP - General Family Medicine 08/20/18 12/29/23 Garett Holt MD Internal Medicine-Gastroenterology 12/22/12 Ruiz Stokes MD [address] [place] [address] Internal Medicine-Cardiovascular Disease 07/25/14 Yenny Schwab MD [address]51 [facility] [address] [place] [address] Internal Medicine-Rheumatology 12/11/16 documented as of this encounter
--- OUTSIDE RECORDS SUMMARY | 2024-07-22 16:02 | XMS_ITS | Encounter Summary ---
Author Organization [place] [address] Care Team Providers Care Environment Friendly Landscape Designer Name Role Phone Garett Holt MD Unavailable [phone] Ruiz Stokes MD Unavailable [phone] Yenny Schwab MD Unavailable [phone] Cristiane Shirley MD Primary Care Provider Reason for Visit * Reason Onset Date Comments Medication Refill 04/28/2022 Encounter Details Date Type Department Care Team (Late st Contact Info) Description 04/28/2022 Refill [facility] [address] [place] [address] Cristiane Shirley MD [address] [place] [address] Medication Refill Social History Tobacco Use Types [...] Date Recorded PHQ-2 Total Score 0 12/01/2021 [facility] of Occupat ional Health [...] 9:00 AM EST Appointment [facility] [address] [place], [place] [id number] Jomar Kim MD [address] [place] [address] documented as of this encounter [...] neuropathy weekly. ?? Refer to PCP and/or Doctor Of Naprapathy, Vascular Specialist as indicated. ?? Monitor patient [...] Peripheral edema Edema documented in this encounter Additional Health Concerns Assessment Noted Time A fall risk assessment has been complete d for the patient 07/14/2021 12:13 PM EDT documented as of this encounter Care Teams Environment Friendly Landscape Designer Relationship Specialty Start Date End Date Cristiane Shirley MD [address] [place] [address] PCP - General Family Medicine 08/20/18 12/29/23 Garett Holt MD Internal Medicine-Gastroenterology 12/22/12 Ruiz Stokes MD [address] [place] [address] Internal Medicine-Cardiovascular Disease 07/25/14 Yenny Schwab MD 651 [facility] [address] [place] [address] Internal Medicine-Rheumatology 12/11/16 documented as of this encounter
--- OUTSIDE RECORDS SUMMARY | 2024-07-22 16:03 | XMS_ITS | Encounter Summary ---
Author Organization [place] [address] Care Team Providers Care Warhead Maintenance Specialist Name Role Phone Garett Holt MD Unavailable [phone] Ruiz Stokes MD Unavailable [phone] Yenny Schwab MD Unavailable [phone] Cristiane Shirley MD Primary Care Provider Reason for Visit * Reason Onset Date Comments Central Patient Navigator Outreach 07/27/2021 mammo Encounter Details Date Type Department Care Team (Late st Contact Info) Description 07/27/2021 Patient Outreach [facility] [address] [place] [address] Cristiane Shirley MD [address] [place] [address] Central Patient Navigator Outreach (mammo) Social History Tobacco Use Types Packs/Day Years [...] Date Recorded PHQ-2 Total Score 0 09/29/2020 [facility] of Occupat ional Health - Occupational [...] have Coronavirus / COVID-19? No / Unsure 07/14/2021 11:12 AM EDT documented as of this encounter Functional Status * Is the person deaf or does he/she have serious difficulty hearing? Answer Date of Assessment Author No 09/29/2020 1:07 PM Jessee Parekh MA * Is the person blind or does he/she have serious difficulty seeing even when wearing glasses? Answer Date of Assessment Author No 09/29/2020 1:07 PM EST Jessee [...] encounter Progress Notes * Tana Jordan - 07/27/2021 4:01 PM EST Patient Outreach: Care Gap Outreach mammo Attempt Count: 1st Care Gaps Addressed accordion tuner: Diabetic Eye Exam and Mammogram Outcome: Left message to return call at and Mychart message sent documented in this encounter Plan of Treatment Upcoming Encounters Date Type Department Care Team (Late st Contact Info) Description 07/29/2024 9:00 AM EST Appointment [facility] [address] [place] [address] Jomar Kim MD [address] [place] [address] documented as of this encounter [...] neuropathy weekly. ?? Refer to PCP and/or Hydramatic Specialist, Vascular Specialist as indicated. ?? Monitor [...] documented as of this encounter Care Teams Warhead Maintenance Specialist Relationship Specialty Start Date End Date Cristiane Shirley MD [address] [place] [address] PCP - General Family Medicine 08/20/18 12/29/23 Garett Holt MD Internal Medicine-Gastroenterology 12/22/12 Ruiz Stokes MD [address] [place] [address] Internal Medicine-Cardiovascular Disease 07/25/14 Yenny Schwab MD [address] [address] Internal Medicine-Rheumatology 12/11/16 documented as of this encounter
--- OUTSIDE RECORDS SUMMARY | 2024-07-22 16:03 | XMS_ITS | Encounter Summary ---
Author Organization [facility] [place] [address] Care Team Providers Care Bee Breeder Name Role Phone Garett Holt MD Unavailable [phone] Ruiz Stokes MD Unavailable [phone] Yenny Schwab MD Unavailable [phone] Cristiane Shirley MD Primary Care Provider [phone] Joselyn Chance RN Unavailable Unavail able Nuria Gonzalez BA, COS Unavailable Unavailable Encounter Details Date Type Department Care Team (Latest Contact Info) Description 02/24/2021 Travel Social History Tobacco Use Types Packs/Day [...] Date Recorded PHQ-2 Total Score 0 09/29/2020 [facility] of Occupat ional Health - Occupational Stress [...] have Coronavirus / COVID-19? No / Unsure 02/24/2021 10:31 AM EDT documented as of this encounter [...] 9:00 AM EST Appointment [facility] [address] [place] [address] Jomar Kim MD [address] [place] [address] documented as of this encounter Goals Goal Patient Goal Type Associated Problems Recent Progress Patient-Stated? Author Blood Pressure < 140/90 Blood Pressure 110/72(04/09 2:44 PM EDT) No Rachel Rogers RMA BMI (Calculated) < 30 General 50.9(2023 2:44 PM EDT) No Rachel Rogers RMA Eat better, exercise, reach an ideal body weight General No Ni Clinton, intermediate frame tender Healing General On track(12/03 9:18 AM [...] neuropathy weekly. ?? Refer to PCP and/or Software Test Engineer, Vascular Specialist as indicated. ?? Monitor [...] on filedocumented in this encounter Care Teams Bee Breeder Relationship Specialty Start Date End Date Cristiane Shirley MD [address] [place] [address] PCP - General Family Medicine 08/20/18 12/29/23 Garett Holt MD Internal Medicine-Gastroentero logy 12/22/12 Ruiz Stokes MD [address] [place] [address] Internal Medicine-Cardiovascul ar Disease 07/25/14 Yenny Schwab MD [address] [address] Internal Medicine-Rheumatology 12/11/16 Chance, Joselyn E, RN Electronics Engineering Manager Registered Nurse 05/05/20 03/08/21 Nuria Gonzalez BA, COS Case Hardware Technician 02/08/21 02/27/21 documented as of this encounter
--- OUTSIDE RECORDS SUMMARY | 2024-07-22 16:03 | XMS_ITS | Encounter Summary ---
Author Organization [place] [address] Care Team Providers Care Livestock Exhibitor Name Role Phone Garett Holt MD Unavailable [phone] Ruiz Stokes MD Unavailable [phone] Yenny Schwab MD Unavailable [phone] Cristiane Shirley MD Primary Care Provider Reason for Visit * Reason Comments Medication Refill Encounter Details Date Type Department Care Team (Late st Contact Info) Description 07/18/2021 Refill [facility] [address] [place] [address] Cristiane Shirley MD [address] [place] [address] Medication Refill Social History Tobacco Use Types [...] Date Recorded PHQ-2 Total Score 0 09/29/2020 [facility] [place] of Occupat ional Health - Occupational Stress [...] Jessee Parekh MA documented in this encounter Ordered Prescriptions Prescription Sig Dispense Quantity Refills Last Filled Start Date End Date metFORMIN (GLUCOPHAGE) 500 mg Oral Tablet TAKE 1 TAB BY MOUTH DAILY (WITH BREAKFAST). 91 Tablet 1 07/20/2021 12/03/2021 amLODIPine (NORVASC) 10 mg Oral TabletIndications: Essential hypertension TAKE 1 TAB BY MOUTH DAILY. 91 Tablet 1 07/20/2021 12/01/2021 lisinopriL (PRINIVIL;ZESTRIL) 20 mg Oral Tablet tabletIndications: Essential hypertension TAKE 1 TAB BY MOUTH DAILY. 91 Tablet 1 07/20/2021 12/03/2021 atorvastatin (LIPITOR) 20 mg Oral Tablet TAKE 1 TABLET BY MOUTH EVERY DAY 91 Tablet 1 07/20/2021 12/03/2021 documented in this encounter Plan of Treatment Upcoming Encounters Date Type Department Care Team (Late st Contact Info) Description 07/29/2024 9:00 AM EST Appointment [facility] [address] [place] [address] Jomar Kim MD [address] [place] [address] documented as of this encounter Goals Goal Patient Goal Type Associated Problems Recent Progress Patient-Stated? Author Blood Pressure < 140/90 Blood Pressure 110/72(04/09 2:44 PM EDT) No Rachel Rogers RMA BMI (Calculated) < 30 General 50.9(2023 2:44 PM EDT) No Rachel Rogers RMA Eat better, exercise, reach an ideal body weight General No Ni Clinton assessment services manager Healing General On track(12/03 9:18 AM [...] neuropathy weekly. ?? Refer to PCP and/or Iap Displays Analyst, Vascular Specialist as indicated. ?? Monitor [...] TAKE 1 TABLET BY MOUTH EVERY DAY 03/27/2021 07/20/2021 lisinopriL (PRINIVIL;ZESTRIL) 20 mg Oral Tablet tabletIndications:Essenti al hypertension TAKE 1 TAB BY MOUTH DAILY. 03/27/2021 07/20/2021 amLODIPine (NORVASC) 10 mg Oral TabletIndications:Essenti al hypertension TAKE 1 TAB BY MOUTH DAILY. 03/27/2021 07/20/2021 metFORMIN (GLUCOPHAGE) 500 mg Oral Tablet TAKE 1 TAB BY MOUTH DAILY (WITH BREAKFAST). 03/27/2021 07/20/2021 documented as of this encounter Additional Health Concerns Assessment Noted Time A fall risk assessment has been complete d for the patient 07/14/2021 12:13 PM EDT documented as of this encounter Care Teams Livestock Exhibitor Relationship Specialty Start Date End Date Cristiane Shirley MD [address] [place] [address] PCP - General Family Medicine 08/20/18 12/29/23 Garett Holt MD Internal Medicine-Gastroenterology 12/22/12 Ruiz Stokes MD [address] [id number] Internal Medicine-Cardiovascular Disease 07/25/14 Yenny Schwab MD [address] [id number] Internal Medicine-Rheumatology 12/11/16 documented as of this encounter
--- OUTSIDE RECORDS SUMMARY | 2024-07-22 16:03 | XMS_ITS | Encounter Summary ---
Author Organization [place] [address] Care Team Providers Care Legal Recovery Specialist Name Role Phone Garett Holt MD Unavailable [phone] Ruiz Stokes MD Unavailable [phone] Yenny Schwab MD Unavailable [phone] Cristiane Shirley MD Primary Care Provider [phone] Reason for Visit * Reason Comments Medication Refill Encounter Details Date Type Department Care Team (Late st Contact Info) Description 07/16/2021 Refill [facility] [address] [place] [address] Cristiane Shirley MD [address] [place] [address] Medication Refill Social History Tobacco Use Types [...] PHQ-2 Total Score 0 09/29/2020 [facility] [place] of Occupat ional Health - Occupational Stress [...] End Date loratadine (CLARITIN) 10 mg Oral TabletIndications: Seasonal allergic rhinitis due to pollen Take 1 tablet by mouth once daily 63 Tablet 07/16/2021 12/24/2021 documented in this encounter Plan of Treatment Upcoming Encounters Date Type Department Care Team (Late st Contact Info) Description 07/29/2024 9:00 AM EST Appointment [facility] [address] [place] [address] Jomar Kim MD [address] [place] [address] documented as of this encounter Goals Goal Patient Goal Type Associated Problems Recent Progress Patient-Stated? Author Blood Pressure < 140/90 Blood Pressure 110/72(04/09 2:44 PM EDT) No Rachel Rogers RMA BMI (Calculated) < 30 General 50.9(2023 2:44 PM EDT) No Rachel Rogers RMA Eat better, exercise, reach an ideal body weight General No Ni Clinton, shoulder pad molder Healing General On track(12/03 9:18 AM EDT) [...] neuropathy weekly. ?? Refer to PCP and/or Engineer Operations And Maintenance, Vascular Specialist as indicated. ?? Monitor patient [...] Take 1 tablet by mouth once daily 07/09/2021 07/16/2021 documented as of this encounter Additional Health Concerns Assessment Noted Time A fall risk assessment has been complete d for the patient 07/14/2021 12:13 PM EDT documented as of this encounter Care Teams Legal Recovery Specialist Relationship Specialty Start Date End Date Cristiane Shirley MD [address] [place] [address] PCP - General Family Medicine 08/20/18 12/29/23 Garett Holt MD Internal Medicine-Gastroenterology 12/22/12 Ruiz Stokes MD [address] [place] [address] Internal Medicine-Cardiovascular Disease 07/25/14 Yenny Schwab MD [address] [facility] Building [address] [place] [id number] Internal Medicine-Rheumatology 12/11/16 documented as of this encounter
--- OUTSIDE RECORDS SUMMARY | 2024-07-22 16:03 | XMS_ITS | Encounter Summary ---
Author Organization [place] [address] Care Team Providers Care Costing Manager Name Role Phone Garett Holt MD Unavailable [phone] Ruiz Stokes MD Unavailable [phone] Yenny Schwab MD Unavailable [phone] Cristiane Shirley MD Primary Care Provider Reason for Visit * Reason Comments Medication Refill Encounter Details Date Type Department Care Team (Late st Contact Info) Description 05/06/2021 Refill [facility] [address] [place] [address] Cristiane Shirley MD [address] [place] [address] Medication Refill Social History Tobacco Use Types [...] Date Recorded PHQ-2 Total Score 0 09/29/2020 [facility] [place] of Occupat ional Health - Occupational Stress [...] Assessment Author Yes 09/29/2020 1:07 PM Jessee Parehk MA * Does this person have difficulty [...] tablet by mouth twice daily 180 Tablet 05/07/2021 08/20/2021 documented in this encounter Plan of Treatment Upcoming Encounters Date Type Department Care Team (Late st Contact Info) Description 07/29/2024 9:00 AM EST Appointment [facility] [address] [place], [place] [id number] Jomar Kim MD [address] [place] [address] documented as of this encounter Goals Goal Patient Goal Type Associated Problems Recent Progress Patient-Stated? Author Blood Pressure < 140/90 Blood Pressure 110/72(04/09 2:44 PM EDT) No Rachel Rogers RMA BMI (Calculated) < 30 General 50.9(2023 2:44 PM EDT) No Rachel Rogers RMA Eat better, exercise, reach an ideal body weight General No Ni Clinton, adviser sales Healing General On track(12/03 9:18 AM EDT) [...] neuropathy weekly. ?? Refer to PCP and/or Automotive Brake Specialist, Vascular Specialist as indicated. ?? Monitor [...] Tablet Extended Rel 24 hr Take 1 Tab by mouth 2 times daily. 02/08/2021 05/07/2021 documented as of this encounter Care Teams Costing Manager Relationship Specialty Start Date End Date Cristiane Shirley MD [address] [place] [address] PCP - General Family Medicine 08/20/18 12/29/23 Garett Holt MD Internal Medicine-Gastroenterology 12/22/12 Ruiz Stokes MD [address] [id number] Internal Medicine-Cardiovascular Disease 07/25/14 Yenny Schwab MD [address] [id number] Internal Medicine-Rheumatology 12/11/16 documented as of this encounter
--- OUTSIDE RECORDS SUMMARY | 2024-07-22 16:03 | XMS_ITS | Encounter Summary ---
Author Organization [place] [address] Care Team Providers Care Fire Equipment Inspector Name Role Phone Garett Holt MD Unavailable [phone] Ruiz Stokes MD Unavailable [phone] Yenny Schwab MD Unavailable [phone] Cristiane Shirley MD Primary Care Provider [phone] Reason for Referral * Consultation (Routine) - Closed Specialty Diagnoses / Procedures Referred By Contalissa t Referred To Contact Podiatry Diagnoses Ulcer of left foot, limited to breakdown of skin (HCC) Cristiane Shirley MD Phone: tel: fax: Heriberto Juares, DPM [address] [facility] [address] [place] [address] Phone: tel: fax: Referral ID Status Reason Start Date Expiration Date Visits Re quested Visits Authorized [id number] Closed 07/14/2021 07/14/2022 99 99 Reason for Visit * Reason Comments Annual Exam Foot Pain left Dysuria Encounter Details Date Type Department Care Team (Late st Contact Info) Description 07/14/2021 11:00 AM EDT Office Visit [facility] [address] [phone] Cristiane Shirley MD [address] [address] Annual physical exam (Primary Dx); Dysuria; UTI (urinary tract infection), uncomplicated; Ulcer of left foot, limited to breakdown of skin (HCC); Diabetic ulcer of lower extremity (HCC) Social History Tobacco Use Types Packs/Day [...] Date Recorded PHQ-2 Total Score 0 09/29/2020 [facility] [...] AM EDT documented as of this encounter Last Filed Vital Signs Vital Sign Reading Time Taken Comments Blood Pressure 124/72 07/14/2021 12:09 PM EDT Pulse - - Temperature 36.7 ??C (98.1 ??F) 07/14/2021 12:09 PM E DT Respiratory Rate - - Oxygen Saturation - - Inhaled Oxygen Concentration - - Weight 112.5 kg (248 lb) 07/14/2021 12:09 PM EDT Height 162.6 cm (5' 4 ) 07/14/2021 12:09 PM EDT Body Mass Index 42.57 07/14/2021 12:09 PM EDT documented in this [...] Tablet by mouth 2 times daily for 5 days. 10 Tablet 07/14/2021 documented in this encounter Progress Notes * Cristiane Shirley MD - 07/14/2021 11:00 AM EDT Vitals: 07/14/21 1209 BP: 124/72 Temp: 98.1 ??F (36.7 ??C) TempSrc: Tympanic Weight: 248 lb (112.5 kg) Height: 5' 4 (1.626 m) SUBJECTIVE: Chief Complaint Patient presents with ??? Annual Exam ??? Foot Pain left ??? Dysuria HPI: Abstract This is a new problem. The current episode started today. The problem occurs constantly. The problem has been unchanged. Foot Pain This is a recurrent problem. The current episode started more than 1 month ago. The problem occurs constantly. The problem has been unchanged. Dysuria This is a recurrent problem. The current episode started 1 to 4 weeks ago. The problem occurs everyurination. The problem has been unchanged. Medicare Wellness Assessment Flowsheet Version: Body mass index is 42.57 kg/m??. Ms. Jamil 66 y.o. female Subsequent Annual Medicare Wellness Assessment. As part of today's visit the components [...] provided to the patient digitally through their F[facility]iling[facility] account or with a paper copy if the patient doesn't have an active MyChart Account. A copy of today's progress note with recommendations below is alsoavailable electronically for patients with an active Fiiiling[employer] account per the Federal Cures Act. TheAVS also contains additional patient education if appropriate on topics common to wellness and their plan of care. Fall Risk Assessment Has the patient had any fall with injury in the past year?: no Has the patient had 2 or more falls in the past year?: No Is the patient able to sit without assistance?: Yes Is the patient able to get up without assistance?: (!) No (sometimes) Does the patient have a difficult time ambulating when first getting up?: (!) Yes (sometimes has issues) Does the patient have rugs or runners in the home?: No Does the patient have grab bars in the bathroom?: (!) No Does the patient have handrails for all inside or outside stairs?: Yes Does the patient have stairs in the home?: No Functional Status Assessment Functional Level: self care Functional Mobility Assessment: (!) mobile with cane/walker Assessment of transportation needs: (!) dependent on other/public transportation Functional Activities of Daily Living Limitations: (!) ambulation;bathing/hygiene Bladder: Do you have issues with your bladder, such as urgency or leaking urine?: No issues Activities of Daily Living Assistive Device Assessment Assistive Devices: Cane;Walker Osteoporosis Screening Assessment Has the patient had a DEXA scan in the past 2 years?: (!) No Results for orders placed during the hospital encounter of 01/30/17 DX BONE DENSITY AXIAL SKELETON Narrative Indication: The patient is presently being monitored while on treatment and requires a bone density assessment. Study was performed on [employer]. Bone Density: Region BMD T-score Z-score [...] TH value. Reported by: Amy Guerin PA-C, [facility] on 01/30/2017 3:24:00 PM. Abnormal Pains Assessment Excluding what you would consider normal aches and pains for your age and medical condition, do youhave any unusual or worrisome pains?: (!) Yes PHQ Depression Screening Results Little interest or pleasure in doing things: 0 Feeling down, depressed, or hopeless: 0 PHQ-2 Total Score: 0 PHQ-9 Total Score: 0 Advanced Directive Evaluation Advance Care Planning Guide Given?: (!) No [...] thinking and/or memory: 0 Total AD8 score:: 0 Mini Cog Dementia Screening tool results No exam data present Results for orders placed or performed in visit on 07/14/21 URINE CULTURE (NO STAIN) Specimen: Urine, Clean Catch Result Value Ref Range Culture Positive Growth (A) Culture >[id number] CFU/mL Escherichia coli SEP URINALYSIS POC Result Value Ref Range UA Color POC Yellow Color UA Appear POC Clear Clear UA Gluc POC Negative Negative mg/dL UA Bili POC Negative Negative UA Ketones POC Negative Negative mg/dL UA SG POC 1.020 1.001 - 1.035 no units UA Blood POC Trace-Intact (A) Negative UA pH POC 5.5 5.0 - 8.0 pH UA Protein POC Negative Negative mg/dL UA Urobilinogen POC 0.2 0.2, 1.0 UA Nitrite POC Negative Negative UA Leuk Est POC Moderate (A) Negative Patient Active Problem List Diagnosis ??? Osteoarthrosis, [...] BIOPSY ; Surgeon: Christa Chavez MD; Location: [facility]; Service: General ??? CARDIAC CATHETERIZATION 04/2015 [...] MESH ; Surgeon: Regan Butts MD; Location: [facility]; Service: General Allergies Allergen Reactions ??? Amitriptyline Nausea And [...] ??? amLODIPine (NORVASC) 10 mg Oral Tablet TAKE 1 TAB BY MOUTH DAILY. 90 Tab 0 ??? aspirin 81 mg Oral Tablet, Delayed Release (E.C.) TAKE 1 TABLET BY MOUTH DAILY 91 Tab 11 ??? atorvastatin (LIPITOR) 20 mg Oral Tablet TAKE 1 TABLET BY MOUTH EVERY DAY 90 Tab 0 ??? Blood-Glucose Meter Misc Kit Please fill with what her ins will cover 1 Kit 0 ??? CALCIUM ORAL Take 1 Tab by mouth daily. ??? cholecalciferol, vitamin D3, (VITAMIN D3) 25 mcg (1,000 unit) Oral Tablet Take 1 Tab by mouth daily. 30 Tab 11 ??? docusate sodium (COLACE) 100 mg Oral Capsule Take 1 capsule by mouth twice daily 60 Cap 0 ??? fluticasone propionate (FLONASE) 50 mcg/actuation Nasl [facility], Suspension Use 1 spray(s) in eachnostril once daily 16 g 0 ??? fUROsemide (LASIX) 40 mg Oral Tablet One tab daily and may take an extra if needed. 60 Tab 6 ??? lisinopriL (PRINIVIL;ZESTRIL) 20 mg Oral Tablet tablet TAKE 1 TAB BY MOUTH DAILY. 90 Tab 0 ??? loratadine (CLARITIN) 10 mg Oral Tablet Take 1 tablet by mouth once daily 63 Tablet 0 ??? lubiprostone (AMITIZA) 24 mcg Oral Capsule TAKE ONE CAPSULE BY MOUTH TWICE A DAY. THIS REPLACESLINZESS. 126 Cap 2 ??? metFORMIN (GLUCOPHAGE) 500 mg Oral Tablet TAKE 1 TAB BY MOUTH DAILY (WITH BREAKFAST). 90 Tab 0 ??? Nebulizer Accessories Misc Kit Nebulizer accessories 1 Kit 0 ??? omeprazole (PRILOSEC) 20 mg Oral Capsule, Delayed Release(E.C.) TAKE 1 CAP BY MOUTH DAILY. 98 Cap 3 ??? omeprazole (PRILOSEC) 40 mg Oral Capsule, Delayed Release(E.C.) Take 1 capsule by mouth twice daily 180 Cap 0 ??? oxybutynin (DITROPAN-XL) 10 mg Oral Tablet Extended Rel 24 hr Take 1 tablet by mouth twice daily 180 Tablet 0 No current facility-administered medications on file prior [...] 09/08/1971 Quit date: 09/07/1984 Years since quittin.8 ??? Smokeless tobacco: Never Used Substance and Sexual Activity ??? Alcohol use: No Alcohol/week: 0.0 oz ??? Drug use: No ??? Sexual activity: Yes Partners: Male control/protection: Post-menopausal Social Determinants of Health Financial Resource Strain: Low Risk ??? Difficulty of Paying Living Expenses: Not very hard Food Insecurity: No Food Insecurity ??? Worried About Running Out of Food in the Last Year: Never true ??? Ran Out of Food in the Last Year: Never true Transportation Needs: Unmet Transportation Needs ??? Lack of Transportation (Medical): Yes ??? Lack of Transportation (Non-Medical): Yes Physical Activity: Insufficiently Active ??? Days of Exercise per Week: 3 days ??? Minutes of Exercise per Session: 20 min Stress: No Stress Concern Present ??? Feeling of Stress : Only a little Family History Problem Relation Age of Onset ??? Heart Disease Father ??? Cataracts Father ??? Diabetes Father ??? Cancer Maternal Grandmother ??? Colon Cancer Maternal Grandmother ??? Anesth Problems Neg Hx Immunization History Administered Date(s) Administered ??? Influenza Virus Vaccine Quadrivalant, Flublok 06/10/2019 ??? Moderna SARS-CoV-2 Vaccine 12/17/2020, 01/14/2021 ??? Pneumococcal Polysaccharide 23 Valent 11/15/2015 ??? Quadrivalent Influenza High Dose 07/14/2021 ??? Tdap 01/06/2013 Health Maintenance Topic Date Due ??? Zoster (1 of 2) Never done ??? Breast Cancer Screening 11/14/2017 ??? Diabetic Eye Exam 02/11/2021 ??? Pneumococcal Vaccine 65+ (2 of 2 - PPSV23) 2021 ??? Wellness Exam Medicare 05/25/2021 ??? COVID-19 Vaccine (3 - Booster for Moderna series) 07/17/2021 ??? Hemoglobin A1c 08/26/2021 ??? Lipids 02/24/2022 ??? Fall Risk Assessment 07/14/2022 ??? DTaP/TDaP/Td (2 - Td or Tdap) 01/06/2023 ??? Colon Cancer Screening: Colonoscopy 02/17/2023 ??? Influenza Vaccine Completed ??? Bone Density Screening Completed ??? Hepatitis C Screening Completed ??? Hepatitis B Vaccine Aged Out Patient Care Team: Cristiane Shirley MD as PCP - General (Family Medicine) Garett Holt MD (Internal Medicine-Gastroenterology) Ruiz Stokes MD (Internal Medicine-Cardiovascular Disease) Yenny Schwab MD (Internal Medicine-Rheumatology) Patient Instructions AWV findings and Plan of Care: Good preventative health care is important in [...] having an Advanced Directives. This is something the patient should have on file, as well as something that we should have on file in our records. If we don't have a copy of your current Advanced Directive, please bring a copy to your next visit. If you have a power of operations plant attendant or surrogate, we should also have a copy on file. I encourage candid discussion with your family on your wish es in the event that you are incapacitated and unable to participate in direct medical decision making. It is important to stay up to date on recommended vaccinations including Flu, Pneumonia, and Shingles vaccine. Below are other health maintenance topics that are recommended to be closed at your earliest opportunity. You may notice that some of these were addressed in the office today. Health Maintenance Due Topic Date Due ??? Zoster (1 of 2) Never done ??? Breast Cancer Screening 11/14/2017 ??? Diabetic Eye Exam 02/11/2021 ??? Pneumococcal Vaccine 65+ (2 of 2 - PPSV23) 2021 ??? Wellness Exam Medicare 05/25/2021 In addition to recommendations to close care gaps noted above additional recommendations as part ofthe Personal Plan of Care are: Fall Risk Assessment Negative - Recommend re-assess 1 year. Functional Status/Social Determinants of Health - Stable, no issues, re-assess 1 year. Depression Screening Negative - Recommend re-assess 1 year. Dementia Screening Negative - Recommend re-assess 1 year. Vaccinations updated today, see orders. Activity/Exercise - recommend starting a regular program Additional issues addressed today: Diabetes: Alyssa following up today for diabetes. Current symptoms/problems include none. Current monitoring regimen: none Home blood sugar records: fasting range: normal Any episodes of hypoglycemia? no Current diet: not asked Current exercise: none Known diabetic complications: none Cardiovascular risk factors: none Weight trend: Body mass index is 42.57 kg/m??. Wt Readings from Last 3 Encounters: 07/14/21 248 lb (112.5 kg) 02/24/21 251 lb (113.9 kg) 09/29/20 256 lb (116.1 kg) A1c trend: Lab Results Component Value Date HGBA1C 5.6 02/24/2021 HGBA1C 5.6 05/25/2020 HGBA1C 6.3 (H) 11/09/2019 Renal trend: Lab Results Component Value Date GFRAFRAM 96 02/24/2021 GFRAFRAM 104 05/18/2020 GFRAFRAM 113 04/27/2020 Lab Results Component Value Date GFRNONAFRAM 83 02/24/2021 GFRNONAFRAM 90 05/18/2020 GFRNONAFRAM 98 04/27/2020 Review of Systems Genitourinary: Positive for dysuria. OBJECTIVE: Physical Exam Vitals and nursing note reviewed. Constitutional: Appearance: She is normal weight. HENT: Head: Normocephalic. Cardiovascular: Rate and Rhythm: Normal rate. Heart sounds: No murmur heard. Pulmonary: Effort: Pulmonary effort is normal. Breath sounds: No wheezing. Abdominal: Palpations: Abdomen is soft. Tenderness: There is no abdominal tenderness. Skin: Comments: Left foot with callous and beginning to develop ulcer Neurological: General: No focal deficit present. Mental Status: She is alert. Psychiatric: Mood and Affect: Mood normal. Assessment Diagnoses and all orders for this visit: Annual physical exam Dysuria - SEP URINALYSIS POC - URINE CULTURE (NO STAIN); Future UTI (urinary tract infection), uncomplicated - ciprofloxacin HCl (CIPRO) 250 mg Oral Tablet; Take 1 Tablet by mouth 2 times daily for 5 days. Dispense: 10 Tablet; Refill: 0 Ulcer of left foot, limited to breakdown of skin (HCC) (Chronic) - AMB REFERRAL TO PODIATRY Declines wound care. monitor Diabetic ulcer of lower extremity (HCC) (Chronic) Monitor for worssening. Other orders - QUADRIVALENT FLUZONE HIGH DOSE Above problems were discussed with patient and [...] for today's visit. documented in this encounter Miscellaneous Notes * Patient Instructions - Cristiane Shirley MD - 07/14/2021 11:00 AM EDT Images from the original note were not included. Urinary Tract Infections (UTI) You have been diagnosed with a urinary tract infection (UTI). Other names for this condition are bladder infection and cystitis. This is a very common type of infection in women. (It is very uncommonin men and men usually require further testing to determine the cause). Treatment with a short course of antibiotics usually clears the infection within 24-48 hours. You may find the information below helpful in dealing with this infection and the prevention and treatment of future infections. What causes a urinary tract infection? The urinary tract consists of the kidneys, ureters (the tubes that connect the kidneys to the bladder), the bladder and the urethra (the tube connecting the bladder to outside of the body). Infections usually occur when bacteria enter the urethra and and grow inside the bladder. What are the common symptoms of a urinary tract infection? ?? Burning or pain with urination ?? Urinating more often but only in small amounts ?? Cloudy or foul smelling urine ?? Pain below your belly button ?? Fever or chills What is the difference between a urinary tract infection and a kidney infection? Infections that have reached the kidneys (pyelonephritis) are much more serious and require different treatment. Sometimes hospitalization and IV antibiotics are necessary. The symptoms of a kidney infection are similar to those above but may also include: ?? Pain in your back on one side under your ribs ?? Nausea and vomiting ?? Fever and chills ?? Flu like symptoms If a kidney infection is not treated quickly it can lead to an infection in your blood stream or damage to your kidneys. Contact your doctor right away if you have these symptoms. How are urinary tract infections treated? Treatment with an antibiotic usually clears the infection in 1-2 days. Commonly prescribed antibiotics are Cipro (ciprofloxacin), Bactrim (sulfamethoxazole- trimethoprim) and Macrobid (nitrofurantoin). It is important that you take the entire course of the antibiotic to make sure the infection is completely gone. There are medications available without a prescription that may help with the burning and pain associated with a urinary tract infection but these are often not needed. These include Azo Urinary PainRelief and Uristat. It is important to note that these medications will turn your urine orange, maystain and will affect the results of tests we may run on your urine. What do I need to watch for? You should contact your doctor if: ?? Your infection does not seem to be clearing after 4 days ?? You have back pain ?? You have high fever, chills or flu-like symptoms ?? You have nausea or vomiting How do I prevent getting a urinary tract infection in the future? ?? Drink plenty of fluids ?? Don't wait to urinate ?? Urinate after sexual activity ?? Be sure to practice good hygiene habits and wipe front to back ?? Keep your blood sugars under control if you are diabetic Urinary tract infections may be eligible for an e-Visit through [facility]. Please log on to your My Chart account next time you have a UTI and take advantage of this convenient way to address this problem as well as may other simple problems. Please contact us if you have further questions or need more information. documented in this encounter Plan of Treatment Upcoming Encounters Date Type Department Care Team (Late st Contact Info) Description 07/29/2024 9:00 AM EST Appointment [facility] [address] [place] [address] Jomar Kim MD [address] [place] [address] Scheduled Referrals Name Type Priority Associated Diagnoses Orde r Schedule AMB REFERRAL TO PODIATRY Outpatient Referral Routine Ulcer of left foot, limited to breakdown of skin (HCC) Ordered: 07/14/2021 documented as of this encounter Goals Goal Patient Goal Type Associated Problems Recent Progress Patient-Stated? Author Blood Pressure < 140/90 Blood Pressure 110/72(04/09 2:44 PM EDT) No Rachel Rogers RMA BMI (Calculated) < 30 General 50.9(2023 2:44 PM EDT) No Rachel Rogers, MULU Eat better, exercise, reach an ideal body weight General No Ni Clinton, chemical pathologist Healing General On track(12/03 9:18 AM EDT) [...] neuropathy weekly. ?? Refer to PCP and/or Paint Mixer Machine, Vascular Specialist as indicated. ?? Monitor patient [...] Diagnosis Comments URINE CULTURE (NO STAIN) Routine 07/14/2021 12:14 PM EDT Dysuria SEP URINALYSIS POC Routine 07/14/2021 12 :11 PM EDT Dysuria documented in this encounter Results * (ABNORMAL) URINE CULTURE (NO STAIN) (07/14/2021 12:14 PM EDT) Culture Positive Growth(A) 07/16/2021 10:51 AM EST [facility] Culture >[id number] CFU/mL Escherichia coli SUSCEPTIBI LITY RESULT 07/16/2021 10:51 AM EST [facility] Urine URINE SPECIMEN COLLECTION, CLEAN CATCH / Unknown 07/14/2021 12:14 PM EDT 07/14/2021 12:14 PM EDT Narrative Organism Antibiotic Method Susceptibility Escherichia coli Amikacin SUSCEPTIBILITY RESULT <=16 ug/mL: Susceptible Escherichia coli Amoxicillin/Clavulanate SUSCEPTIBILIT Y RESULT <=8/4 ug/mL: Susceptible Escherichia coli Ampicillin SUSCEPTIBILITY RESULT <=8 ug/mL: Susceptible Escherichia coli Ampicillin/Sulbactam SUSCEPTIBILITY R ESULT <=4/2 ug/mL: Susceptible Escherichia coli Aztreonam SUSCEPTIBILITY RESULT <=4 ug/mL: Susceptible Escherichia coli Cefazolin SUSCEPTIBILITY RESULT <=2 ug/mL: Susceptible Escherichia coli Cefepime SUSCEPTIBILITY RESULT Escherichia coli Cefotaxime SUSCEPTIBILITY RESULT Escherichia coli Cefoxitin SUSCEPTIBILITY RESULT <=8 ug/mL: Susceptible Escherichia coli Ceftazidime SUSCEPTIBILITY RESULT Escherichia coli Ceftazidime/Avibactam SUSCEPTIBILITY RESULT Escherichia coli Ceftolozane/Tazobactam SUSCEPTIBILITY RESULT Escherichia coli Ceftriaxone SUSCEPTIBILITY RESULT Escherichia coli Cefuroxime SUSCEPTIBILITY RESULT Escherichia coli Ciprofloxacin SUSCEPTIBILITY RESULT <=0.25 ug/mL: Susceptible Escherichia coli Ertapenem SUSCEPTIBILITY RESULT <=0.5 ug/mL: Susceptible Escherichia coli Gentamicin SUSCEPTIBILITY RESULT <=2 ug/mL: Susceptible Escherichia coli Imipenem SUSCEPTIBILITY RESULT <=1 ug/mL: Susceptible Escherichia coli Levofloxacin SUSCEPTIBILITY RESULT <=0.5 ug/mL: Susceptible Escherichia coli Meropenem SUSCEPTIBILITY RESULT <=1 ug/mL: Susceptible Escherichia coli Meropenem/Vaborbactam SUSCEPTIBILITY RESULT Escherichia coli Minocycline SUSCEPTIBILITY RESULT Escherichia coli Moxifloxacin SUSCEPTIBILITY RESULT Escherichia coli Nitrofurantoin SUSCEPTIBILITY RESULT <=32 ug/mL: Susceptible Escherichia coli Piperacillin/Tazobactam SUSCEPTIBILIT Y RESULT <=8 ug/mL: Susceptible Escherichia coli Tetracycline SUSCEPTIBILITY RESULT <=4 ug/mL: Susceptible Escherichia coli Tigecycline SUSCEPTIBILITY RESULT Escherichia coli Tobramycin SUSCEPTIBILITY RESULT <=2 ug/mL: Susceptible Escherichia coli Trimethoprim/Sulfame tho xazole SUSCEPTIBILITY RESULT <=0.5/9.5 ug/mL: Susceptible Cristiane Shirley MD MICROBIOLOGY - GENERAL ORDERAB LES Final Result [facility], [address], [facility] [place] [address] * (ABNORMAL) SEP URINALYSIS POC (07/14/2021 12:11 PM EDT) UA Color POC Yellow Color 07/14/2021 12:13 PM EDT [facility] Appear POC Clear Clear 07/14/2021 12:13 PM EDT [facility] Gluc POC Negative Negative mg/dL 07/14/2021 12:13 PM EDT [facility] Bili POC Negative Negative 07/14/2021 12:13 PM EDT [facility] Ketones POC Negative Negative mg/dL 07/14/2021 12:13 PM EDT [facility]A SG POC 1.020 1.001 - 1.035 no units 07/14/2021 12:13 PM EDT [facility]A Blood POC Trace-Intact (A) Negative 07/14/2021 12:13 PM EDT [facility] UA pH POC 5.5 5.0 - 8.0 pH 07/14/2021 12:13 PM EDT [facility] UA Protein POC Negative Negative mg/dL 07/14/2021 12:13 PM EDT [facility] UA Urobilinogen POC 0.2 0.2, 1.0 07/14/2021 12:13 PM EDT [facility] UA Nitrite POC Negative Negative 07/14/2021 12:13 PM EDT [facility] UA Leuk Est POC Moderate(A) Negative 07/14/20 21 12:13 PM EDT [facility] Urine URINE SPECIMEN COLLECTION / Unknown 07/14/2021 12:11 PM EDT 07/14/2021 12:13 PM EDT us Cristiane Shirley MD POINT OF CARE TEST ORDERABLES Final Result Performing Organization Address City/State/[facility] Co de Phone Number [address] [address] documented in this encounter Visit Diagnoses Diagnosis Annual physical exam- Primary Routine general medical examination at a health care facility Dysuria UTI (urinary tract infection), uncomplicated Urinary tract infection, site not specified Ulcer of left foot, limited to breakdown of skin (HCC) Diabetic ulcer of lower extremity (HCC) Type II or unspecified type diabetes mellitus with other specified manifestations, not stated as uncontrolled documented in this encounter Orders Immunization/Injection Count Last Ordered Date First Ordered Date QUADRIVALENT FLUZONE HIGH DOSE 1 07/14/2021 documented in this encounter Additional Health Concerns Assessment Noted Time A fall risk assessment has been complete d for the patient 07/14/2021 12:13 PM EDT documented as of this encounter Care Teams Fire Equipment Inspector Relationship Specialty Start Date End Date Cristiane Shirley MD [address] [place] [address] PCP - General Family Medicine 08/20/18 12/29/23 Garett Holt MD Internal Medicine-Gastroenterology 12/22/12 Ruiz Stokes MD [address] [place] [id number] Internal Medicine-Cardiovascular Disease 07/25/14 Yenny Schwab MD [address] [place] [address] Internal Medicine-Rheumatology 12/11/16 documented as of this encounter
--- OUTSIDE RECORDS SUMMARY | 2024-07-22 16:03 | XMS_ITS | Encounter Summary ---
Author Organization [place] [address] Care Team Providers Care Nutritionalist Name Role Phone Garett Holt MD Unavailable [phone] Ruiz Stokes MD Unavailable [phone] Yenny Schwab MD Unavailable [phone] Cristiane Shirley MD Primary Care Provider Reason for Visit * Reason Onset Date Comments Central Order Completion Outreach 08/03/2021 mammogram Encounter Details Date Type Department Care Team (Late st Contact Info) Description 08/03/2021 Patient Outreach SEP [facility] [address] [place], [place] [id number] Cristiane Shirley MD [address] [place] [address] Central Order Completion Outreach (mammogram ) Social [...] Date Recorded PHQ-2 Total Score 0 09/29/2020 [facility] [...] Progress Notes * Casi Cunningham RN - 08/29/2021 5:00 PM EST SEP Order Completion Outcome Tracking Contact Attempt:: Final Mammogram Outcome:: Left Voicemail to Return Call at [phone] * Allison Wheeler, MATT - 08/03/2021 3:33 PM EST SEP Order Completion Outcome Tracking Contact Attempt:: First Mammogram Outcome:: Left Voicemail to Return Call at [phone], [place] Message documented in this encounter Plan of Treatment Upcoming Encounters Date Type Department Care Team (Late st Contact Info) Description 07/29/2024 9:00 AM EST Appointment [facility] [address] [place] [address] Jomar Kim MD [address] [place] [address] documented as of this [...] neuropathy weekly. ?? Refer to PCP and/or Balance Staff Staker, Vascular Specialist as indicated. ?? Monitor patient [...] documented as of this encounter Care Teams Nutritionalist Relationship Specialty Start Date End Date Cristiane Shirley MD [address] [place] [address] PCP - General Family Medicine 08/20/18 12/29/23 Garett Holt MD Internal Medicine-Gastroenterology 12/22/12 Ruiz Stokes MD [address] [place] [address] Internal Medicine-Cardiovascular Disease 07/25/14 Yenny Schwab MD [address] [address] Internal Medicine-Rheumatology 12/11/16 documented as of this encounter
--- OUTSIDE RECORDS SUMMARY | 2024-07-22 16:03 | XMS_ITS | Encounter Summary ---
Author Organization [place] [address] Care Team Providers Care Conductor/Brakeman Name Role Phone Garett Holt MD Unavailable [phone] Ruiz Stokes MD Unavailable [phone] Yenny Schwab MD Unavailable [phone] Cristiane Shirley MD Primary Care Provider [phone] Encounter Details Date Type Department Care Team (Late st Contact Info) Description 07/12/2021 Orders Only [facility]P [facility] [address] [place] [address] Cristiane Shirley MD [address] [place] [id number] Visit for screening mammogram (Primary Dx) Social History Tobacco Use Types [...] Date Recorded PHQ-2 Total Score 0 09/29/2020 [facility] - [facility]ational Stress Questionnaire Answer Date [...] 9:00 AM EST Appointment [facility] [address] [place] [address] Jomar Kim MD [address] [place] [address] documented as of this encounter Goals Goal Patient Goal Type Associated Problems Recent Progress Patient-Stated? Author Blood Pressure < 140/90 Blood Pressure 110/72(04/09 2:44 PM EDT) No Rachel Rogers RMA BMI (Calculated) < 30 General 50.9(2023 2:44 PM EDT) No Rachel Rogers RMA Eat better, exercise, reach an ideal body weight General No Ni Clinton, admission liaison Healing General On track(12/03 9:18 AM EDT) [...] neuropathy weekly. ?? Refer to PCP and/or Train Driver, Vascular Specialist as indicated. ?? Monitor [...] as of this encounter Visit Diagnoses Diagnosis Visit for screening mammogram- Primary Other screening mammogram documented in this encounter Care Teams Conductor/Brakeman Relationship Specialty Start Date End Date Cristiane Shirley MD [address] [place], [place] [id number] PCP - General Family Medicine 08/20/18 12/29/23 Garett Holt MD Internal Medicine-Gastroenterology 12/22/12 Ruiz Stokes MD [address] [place] [address] Internal Medicine-Cardiovascular Disease 07/25/14 Yenny Schwab MD [address] [address] Internal Medicine-Rheumatology 12/11/16 documented as of this encounter
--- OUTSIDE RECORDS SUMMARY | 2024-07-22 16:03 | XMS_ITS | Encounter Summary ---
Author Organization [place] [address] Care Team Providers Care Safety And Health Manager Name Role Phone Garett Holt MD Unavailable [phone] Ruiz Stokes MD Unavailable [phone] Yenny Schwab MD Unavailable [phone] Cristiane Shirley MD Primary Care Provider [phone] Joselyn Chance RN Unavailable Unavail able Nuria Gonzalez BA, COS Unavailable Unavailable Reason for Visit * Reason Onset Date Comments Transportation 02/21/2021 Encounter Details Date Type Department Care Team (Late st Contact Info) Description 02/21/2021 Patient Outreach [facility] [address] [place] [address] Nuria Gonzalez BA, COS Transportation Social History Tobacco Use Types [...] Date Recorded PHQ-2 Total Score 0 09/29/2020 [facility] - Occupational Stress Questionnaire Answer [...] have Coronavirus / COVID-19? No / Unsure 02/07/2021 9:10 AM EDT documented as of this encounter [...] Jessee Parekh MA documented in this encounter Progress Notes * Nuria Gonzalez - 02/21/2021 11:42 AM EDT COS called SHIP counselor's office for [facility] ([phone]) to attain transportation resources on patient's behalf. Unable to reach an associate. COS left voice mail with COS direct phone number requesting call back. * Nuria Gonzalez - 02/21/2021 10:37 AM EDT COS calling patient to provide transportation resource: [employer] (public transportation for [facility] toll free). Unable to reach patient. COS left voice mail forpatient and provided the phone number for [employer] and for COS. Transportation Eligibility Date of Evaluation: 02/21/2021 Patient qualifies for the following transportation resources: ??? Public Transportation - [employer] for [facility] / [facility] verified that they will sheepskin pickler at patient's address toll free Outcome: ??? COS left voice mail for patient with phone number to [employer] * Nuria Gonzalez - 02/21/2021 10:34 AM EDT COS called [employer] (public transportation) and spoke with Asha. Asha checked with dispatch and stating that patient's address is within the service area. * Nuria Gonzalez - 02/21/2021 10:25 AM EDT COS calling patient to follow up on transportation. Patient stating that family called [employer] (public transportation) and was told that they are out of the service area. Patients stating that they called [facility] and were told that there are no services in their area. COS let know that COS has made several calls to research transportation resources in their area and will call patient back once COS has more information. * Nuria Gonzalez - 02/21/2021 10:19 AM EDT COS called [facility] to check for any transportation resources in [facility]. Unable to reach a patient access representative. COS left voice mail requesting a call back. * Nuria Gonzalez - 02/21/2021 10:18 AM EDT COS called [facility] to inquire about transportation resources in patient's county. COS unable to reach patient access representative. COS left voice mail requesting a call back. * Nuria Gonzalez - 02/21/2021 10:11 AM EDT COS called [facility] to inquire about transportation resources in [facility]'s [facility]. COS unable to reach patient access representative. COS left voice mail requesting a call back. documented in this encounter Plan of Treatment Upcoming Encounters Date Type Department Care Team (Late st Contact Info) Description 07/29/2024 9:00 AM EST Appointment [facility] [address] [place] [id number] Jomar Kim MD [address] [place] [address] documented as of this encounter Goals Goal Patient Goal Type Associated Problems Recent Progress Patient-Stated? Author Blood Pressure < 140/90 Blood Pressure 110/72(04/09 2:44 PM EDT) No Rachel Rogers RMA BMI (Calculated) < 30 General 50.9(2023 2:44 PM EDT) No Rachel Rogers RMA Eat better, exercise, reach an ideal body weight General No Ni Clinton, press clipper Healing General On track(12/03 9:18 AM EDT) [...] weekly. ?? Refer to PCP and/or Manager Of Pharmacy, Vascular Specialist as indicated. ?? Monitor patient [...] on filedocumented in this encounter Care Teams Safety And Health Manager Relationship Specialty Start Date End Date Cristiane Shirley MD [address] [place] [address] PCP - General Family Medicine 08/20/18 12/29/23 Garett Holt MD Internal Medicine-Gastroentero logy 12/22/12 Ruiz Stokes MD [address] [place] [address] Internal Medicine-Cardiovascul ar Disease 07/25/14 Yenny Schwab MD [address] [address] Internal Medicine-Rheumatology 12/11/16 Joselyn Chance, RN Oil Furnace Installer Registered Nurse 05/05/20 03/08/21 Nuria Gonzalez BA, COS Case Supervisor [employer] 02/08/21 02/27/21 documented as of this encounter
--- OUTSIDE RECORDS SUMMARY | 2024-07-22 16:03 | XMS_ITS | Encounter Summary ---
Author Organization [place] [address] Care Team Providers Care Shingles Roofer Name Role Phone Garett Holt MD Unavailable [phone] Ruiz Stokes MD Unavailable [phone] Yenny Schwab MD Unavailable [phone] Cristiane Shirley MD Primary Care Provider [phone] Joselyn Chance RN Unavailable Unavail able Nuria Gonzalez BA, COS Unavailable Unavailable Reason for Referral * Echo (Routine) - Closed Specialty Diagnoses / Procedures Referred By Contac t Referred To Contact Radiology Diagnoses Peripheral edema Cardiac murmur Procedures EC ECHOCARDIOGRAM COMPLETE W DOPPLER AND COLOR FLOW MAPPING Cristiane Shirley MD Phone: tel: fax: Referral ID Status Reason Start Date Expiration Date Visits Re quested Visits Authorized [id number] Closed 02/24/2021 02/24/2023 1 1 Reason for Visit * Reason Comments Diabetes Hyperlipidemia Abdominal Pain Leg Pain Gastroesophageal Reflux Encounter Details Date Type Department Care Team (Late st Contact Info) Description 02/24/2021 10:45 AM EDT Office Visit [facility] [address] [place] [address] Cristiane Shirley MD [address] [facility] [place] [address] UTI (urinary tract infection), uncomplicated (Primary Dx); Essential hypertension; Type 2 diabetes mellitus without complication, without long-term current use of insulin (HCC); PMR (polymyalgia rheumatica) (HCC); Atherosclerosis of aorta ([facility]); Acute bronchitis, unspecified organism; Peripheral edema; Cardiac murmur Social History Tobacco Use Types Packs/Day Years Used Date Smoking Tobacco: Former Cigarettes 1.5 13 0 09/08/1971 - 09/07/1984 Smokeless Tobacco: Never Alcohol Use Standard Drinks/Week Comments No 0 (1 standard drink = 0.6 oz pur e alcohol) Overall Financial Resource Strain ([facility]) Answe r Date Recorded How hard is it for you to pa y for the very basics like food, housing, medical care, and heating? Not very hard 02/07/2021 PHQ-2 Answer Date Recorded PHQ-2 Total Score 0 09/29/2020 [facility] of Occupat ional Health - Occupational Stress [...] medical appointments or from getting medications? Yes 06/0 10/2020 In the past 12 months, has [...] Sign Reading Time Taken Comments Blood Pressure 118/76 02/24/2021 11:09 AM EDT Pulse - - Temperature 36.3 ??C (97.3 ??F) 02/24/2021 11:09 AM E DT Respiratory Rate - - Oxygen Saturation - - Inhaled Oxygen Concentration - - Weight 113.9 kg (251 lb) 02/24/2021 11:09 AM EDT Height 162.6 cm (5' 4 ) 02/24/2021 11:09 AM EDT Body Mass Index 43.08 02/24/2021 11:09 AM EDT documented in this encounter Functional [...] Refills Last Filled Start Date End Date Nebulizer Accessories Misc KitIndications:Acu te bronchitis, unspecified organism Nebulizer accessories 1 Kit 02/24/2021 albuterol (PROVENTIL) 2.5 mg /3 mL (0.083 %) Inhl Solution for NebulizationIndica tions:Acute bronchitis, unspecified organism Take 3 mL by nebulization every 4 hours as needed for Wheezing. 1 box 6 02/24/2021 ciprofloxacin HCl (CIPRO) 500 mg Oral TabletIndications: UTI (urinary tract infection), uncomplicated Take 1 Tab by mouth 2 times daily for 7 days. 14 Tab 02/24/2021 03/03/20 21 documented in this encounter Progress Notes * Cristiane Shirley MD - 02/24/2021 10:45 AM EDT Vitals: 02/24/21 1109 BP: 118/76 Temp: 97.3 ??F (36.3 ??C) Weight: 251 lb (113.9 kg) Height: 5' 4 (1.626 m) SUBJECTIVE: Chief Complaint Patient presents with ??? Diabetes ??? Hyperlipidemia ??? Abdominal Pain ??? Leg Pain ??? Gastrophageal Reflux HPI: Pt here for follow up on Diabetes and Hyperlipidemia. Diabetes She presents for her follow-up diabetic visit. She has type 2 diabetes mellitus. Associated symptoms include fatigue. There are no hypoglycemic complications. There are no diabetic complications. Hyperlipidemia This is a chronic problem. The problem occurs constantly. Associated symptoms include abdominal pain and fatigue. Pertinent negatives include no coughing or fever. Abdominal Pain This is a new problem. The current episode started 1 to 4 weeks ago. The problem occurs intermittently. The problem is unchanged. The pain is located in the LLQ. Radiates to: left leg. Pertinent negatives include no fever. The symptoms are relieved by urination. Her past medical history is significant for GERD. Leg Pain The pain is present in the left upper leg. This is a new problem. Episode onset: 2 months ago. The problem occurs intermittently. The problem has been unchanged. Pertinent negatives include no fever.She has tried nothing for the symptoms. Gastrophageal Reflux This is a chronic problem. The current episode started more than 1 year ago. The problem occurs daily. The problem has been gradually worsening. The pain is located in the epigastric region. The quality of the pain is burning and aching. Pertinent negatives include no fever. The pain is relieved bynothing. Her past medical history is significant for GERD. Diabetes: Alyssa following up today for diabetes. Current symptoms/problems include polydipsia. Current monitoring regimen: home blood tests - daily Home blood sugar records: trend: stable Any episodes of hypoglycemia? no Current diet: not asked Current exercise: none Known diabetic complications: none Cardiovascular risk factors: diabetes mellitus, dyslipidemia and hypertension Weight trend: Body mass index is 43.08 kg/m??. Wt Readings from Last 3 Encounters: 02/24/21 251 lb (113.9 kg) 09/29/20 256 lb (116.1 kg) 09/06/20 256 lb (116.1 kg) A1c trend: Lab Results Component Value Date HGBA1C 5.6 02/24/2021 HGBA1C 5.6 05/25/2020 HGBA1C 6.3 (H) 11/09/2019 Renal trend: Lab Results Component Value Date GFRAFRAM 96 02/24/2021 GFRAFRAM 104 05/18/2020 GFRAFRAM 113 04/27/2020 Lab Results Component Value Date GFRNONAFRAM 83 02/24/2021 GFRNONAFRAM 90 05/18/2020 GFRNONAFRAM 98 04/27/2020 Hypertension: Home reporting of hypertension was reviewed [...] for symptom control daily. Feels that symptoms arenot adequately controlled with current treatment. She does modify diet to avoid symptoms. Review of Systems Constitutional: Positive for fatigue. Negative for fever. HENT: Negative. Respiratory: Negative for cough and wheezing. Cardiovascular: Negative. Gastrointestinal: Positive for abdominal pain. Genitourinary: Negative. Musculoskeletal: Negative. Neurological: Negative. Hematological: Negative. Psychiatric/Behavioral: Negative. OBJECTIVE: Physical Exam Vitals signs and nursing note reviewed. HENT: Head: Normocephalic. Cardiovascular: Rate and Rhythm: Normal rate. Heart sounds: Murmur present. Pulmonary: Effort: Pulmonary effort is normal. Breath sounds: No wheezing. Abdominal: Palpations: Abdomen is soft. Tenderness: There is no abdominal tenderness. Neurological: General: No focal deficit present. Mental Status: She is alert. Psychiatric: Mood and Affect: Mood normal. Assessment Diagnoses and all orders for this visit: UTI (urinary tract infection), uncomplicated - SEP URINALYSIS POC - URINE CULTURE (NO STAIN); Future - ciprofloxacin HCl (CIPRO) 500 mg Oral Tablet; Take 1 Tab by mouth 2 times daily for 7 days. Dispense: 14 Tab; Refill: 0 Essential hypertension Type 2 diabetes mellitus without complication, without long-term current use of insulin ([facility]) (Chronic) - HEMOGLOBIN A1C; Future - LIPID SCREEN; Future - SEP URINALYSIS POC - COMPREHENSIVE METABOLIC PANEL; Future - TSH REFLEX; Future stable PMR (polymyalgia rheumatica) ([facility]) (Chronic) stable Atherosclerosis of aorta ([facility]) (Chronic) stable Acute bronchitis, unspecified organism - albuterol (PROVENTIL) 2.5 mg /3 mL (0.083 %) Inhl Solution for Nebulization; Take 3 mL by nebulization every 4 hours as needed for Wheezing. Dispense: 1 box; Refill: 6 - Nebulizer Accessories [facility]; Nebulizer accessories Dispense: 1 Kit; Refill: 0 Peripheral edema - EC ECHOCARDIOGRAM COMPLETE W DOPPLER AND COLOR FLOW MAPPING; Future Cardiac murmur - EC ECHOCARDIOGRAM COMPLETE W DOPPLER AND COLOR FLOW MAPPING; Future Above problems were discussed with patient and [...] Summary [AVS] for today's visit. The patient and son verbalized full understanding of the care plan and instructions given on the AVS for today's visit. documented in this encounter Plan of Treatment Upcoming Encounters Date Type Department Care Team (Late st Contact Info) Description 07/29/2024 9:00 AM EST Appointment [facility] [address] [place] [address] Jomar Kim MD [address] [place] [address] Scheduled Orders Name Type Priority Associated Diagnoses Order Schedule EC ECHOCARDIOGRAM COMPLETE W DOPPLER AND COLOR FLOW MAPPING Imaging Cardiology Routine Peripheral edema Cardiac murmur 1 Occurrences starting 02/24/2021 until 02/24/2023 documented as of this encounter Goals Goal Patient Goal Type Associated Problems Recent Progress Patient-Stated? Author Blood Pressure < 140/90 Blood Pressure 110/72(04/09 2:44 PM EDT) No Rachel Rogers RMA BMI (Calculated) < 30 General 50.9(2023 2:44 PM EDT) No Rachel Rogers RMA Eat better, exercise, reach an ideal body weight General No Ni Clinton, industrial relations worker Healing General On track(12/03 9:18 AM [...] neuropathy weekly. ?? Refer to PCP and/or [place] Programs Director, Vascular Specialist as indicated. ?? Monitor [...] Diagnosis Comments URINE CULTURE (NO STAIN) Routine 02/24/2021 11:34 AM EDT UTI (urinary tract infection), uncomplicated SEP URINALYSIS POC Routine 02/24/2021 11 :28 AM EDT UTI (urinary tract infection), uncomplicated Type 2 diabetes mellitus without complication, without long-term current use of insulin ([facility]) documented in this encounter Results * TSH REFLEX (02/24/2021 1:04 PM EDT) TSH Reflex 1.040 0.270 - 4.200 mcIU/mL 02/24/2021 6:50 PM EDT [facility] Blood VENOUS BLOOD / Unknown Venipuncture / Unknown 02/24/2021 1:04 PM EDT 02/24/2021 1:04 PM EDT Narrative [facility] - 02/24/2021 6:50 PM EDT Ingestion of min doses of biotin (>5 mg/day) taken within 8 hours of drawing blood sample can interfere with this immunoassay test. us Cristiane Shirley MD CHEMISTRY ORDERABLES Final Res ult [facility] [address] [facility] , [place] [address] * COMPREHENSIVE METABOLIC PANEL (02/24/2021 1:04 PM EDT) Sodium 136 136 - 145 mmol/L 02/24/2021 6:50 PM EDT [facility] Potassium 3.5 3.5 - 5.0 mmol/L 02/24/2021 6:50 PM EDT [facility] Chloride 98 98 - 107 mmol/L 02/24/2021 6:50 PM EDT [facility] Total CO2 28 22 - 29 mmol/L 02/24/2021 6:50 PM EDT [facility] Anion Gap 10 7 - 16 mmol/L 02/24/2021 6:50 PM EDT [facility] Calcium 10.1 8.8 - 10.4 mg/dL 02/24/2021 6:50 PM EDT [facility] Glucose Lvl 97 82 - 100 mg/dL 02/24/2021 6:50 PM EDT [facility] BUN 10 8 - 23 mg/dL 02/24/2021 6:50 PM EDT [facility] Creatinine 0.76 0.51 - 1.30 mg/dL 02/24/2021 6:50 PM EDT [facility] Albumin 4.1 3.2 - 4.6 gm/dL 02/24/2021 6:50 PM EDT [facility] Total Protein 7.3 6.4 - 8.3 gm/dL 02/24/2021 6:50 PM EDT [facility] Bili Total 0.4 0.1 - 1.3 mg/dL 02/24/2021 6:50 PM EDT [facility] ALT 8 <=41 U/L 02/24/2021 6:50 PM EDT [facility] AST 15 <=40 U/L 02/24/2021 6:50 PM EDT [facility] Alk Phos 84 36 - 123 U/L 02/24/2021 6:50 PM EDT [facility] GFR Afr Am 96 >=60 mL/min/1.7 3 m2 02/24/2021 6:50 PM EDT [facility] GFR Non Afr Am 83 >=60 mL/min/1.7 3 m2 02/24/2021 6:50 PM EDT [facility] Comment: This estimated GFR was calculated using CKD-EPI equation which is modified based on ethnicity for Non Americans and Americans. Both results are reported since it is not always possible to determine the patient's ethnicity. This equation should only be used for individuals 18 and older. It has not been validated for use with the elderly (>70 years), women, or in some racial or ethnic subgroups, such as Hispanics. The equation will be less accurate in people with differences in nutritional status or muscle mass. Blood VENOUS BLOOD / Unknown Venipuncture / Unknown 02/24/2021 1:04 PM EDT 02/24/2021 1:04 PM EDT us Cristiane Shirley MD CHEMISTRY ORDERABLES Final Res ult [facility] [address] [facility], [place] [address] [facility] [address] [place] [address] * LIPID SCREEN (02/24/2021 1:04 PM EDT) Cholesterol 141 <200 mg/dL 02/24/2021 6:50 PM EDT [facility] Comment: < 200 ?Desirable 200 - 239 ? Borderline High >= 240 ?High Triglyceride 68 <150 mg/dL 02/24/2021 6:50 PM EDT [facility] Comment: < 150 ? Normal 150 - 199 ?Borderline High 200 - 499 ?High ??>= 500 ? Very High HDL 46 >=40 mg/dL 02/24/2021 6:50 PM EDT [facility] Comment: ??> 60 ?Optimal 40 - 60 ?Acceptable ?? < 40 ?Low LDL Calculated 81 <100 mg/dL 02/24/2021 6:50 PM EDT [facility] Comment: < 100 ?Optimal 100 - 129 ? Near or above optimal 130 - 159 ? Borderline High 160 - 189 ? High >= 190 ?Very High Non-HDL-C Calculated 95 <=129 mg/dL 02/24/2021 6:50 PM EDT [facility] Comment: <130 ?Desirable 130-159 Above Desirable 160-189 Borderline High 190-219 High >= 220 ??Very High Fasting Specimen? Yes None 021 6:50 PM EDT [facility] Blood VENOUS BLOOD / Unknown Venipuncture / Unknown 02/24/2021 1:04 PM EDT 02/24/2021 1:04 PM EDT us Cristiane Shirley MD CHEMISTRY ORDERABLES Final Res ult [facility] [address] [facility], [place] [address] [facility] [address] [place] [address] * HEMOGLOBIN A1C (02/24/2021 1:04 PM EDT) [facility] Signature Hgb A1C 5.6 4.2 - 5.6 % 02/24/2021 6:44 PM EDT [facility] Est. Avg Glucose 114 mg/dL 02/24/2021 6:44 PM EDT [facility] Blood VENOUS BLOOD / Unknown Venipuncture / Unknown 02/24/2021 1:04 PM EDT 02/24/2021 1:04 PM EDT Narrative [facility] - 02/24/2021 6:44 PM EDT REFERENCE RANGE: Normal: 4.0-5.6% Pre-diabetes: 5.7-6.4% Provisional diagnosis of diabetes: >6.4% Hgb F>10% and anything which shortens red cell survival, such as hemolytic anemia, or unstable hemoglobin variants such as HbSS, HbSC, or HbCC, will lower the HbA1c value associated with a given level of glycemic control. ? Cristiane Shirley MD CHEMISTRY ORDERABLES Final Res ult Performing Organization Address [facility]/ZIP Co de Phone Number [employer] [address] , [place] [address] * URINE CULTURE (NO STAIN) (02/24/2021 11:34 AM EDT) Pathologist [facility] Culture Multiple bacterial species isolated from urine consistent with urogenital commensal organisms. 02/26/2021 6:52 AM EDT [facility] Urine URINE SPECIMEN COLLECTION, CLEAN CATCH / Unknown 02/24/2021 11:34 AM EDT 02/24/2021 11:34 AM EDT Cristiane Shirley MD MICROBIOLOGY - GENERAL ORDERAB LES Final Result Performing Organization Address [facility] Co de Phone Number [employer] [address] , [place] [address] * (ABNORMAL) SEP URINALYSIS POC (02/24/2021 11:28 AM EDT) UA Color POC Yellow Color 02/24/2021 11:31 AM EDT [facility] Appear POC Clear Clear 02/24/2021 11:31 AM EDT [facility] Gluc POC Negative Negative mg/dL 02/24/2021 11:31 AM EDT [facility] Bili POC Negative Negative 02/24/2021 11:31 AM EDT [facility] Ketones POC Negative Negative mg/dL 02/24/2021 11:31 AM EDT [facility] SG POC 1.010 1.001 - 1.035 no units 02/24/2021 11:31 AM EDT [facility] Blood POC Small(A) Negative 02/24/2021 11:31 AM EDT [facility] pH POC 6.0 5.0 - 8.0 pH 02/24/2021 11:31 AM EDT [facility] UA Protein POC Negative Negative mg/dL 02/24/2021 11:31 AM EDT [facility] UA Urobilinogen POC 2.0(A) 0.2, 1.0 02/24/2021 11:31 AM EDT [facility] UA Nitrite POC Negative Negative 02/24/2021 11:31 AM EDT [facility] UA Leuk Est POC Trace(A) Negative 11:31 AM EDT [facility] Urine URINE SPECIMEN COLLECTION / Unknown 02/24/2021 11:28 AM EDT 02/24/2021 11:31 AM EDT us Cristiane Shirley MD POINT OF CARE TEST ORDERABLES Final Result Performing Organization Address City/State/[facility] Co de Phone Number [place] [phone] documented in this encounter Visit Diagnoses Diagnosis UTI (urinary tract infection), uncomplicated- Primary Urinary tract infection, site not specified Essential hypertension Unspecified essential hypertension Type 2 diabetes mellitus without complication, without long-term current use of insulin (HCC) PMR (polymyalgia rheumatica) (HCC) Polymyalgia rheumatica Atherosclerosis of aorta (HCC) Atherosclerosis of aorta Acute bronchitis, unspecified organism Peripheral edema Edema Cardiac murmur Undiagnosed cardiac murmurs documented in this encounter Discontinued Medications Medication Sig Discontinue Reason Start Date End Da te oxyCODONE-acetaminophe n (PERCOCET) 5-325 mg Oral Tablet Take 1-2 Tabs by mouth every 4 hours as needed for Major Surgery/Trauma (G89.18). May take 1-2 tablets every 4 hours as needed for pain DELETE-Therapy completed 02/24/2021 cephALEXin (KEFLEX) 500 mg Oral Capsule TAKE 1 CAPSULE BY MOUTH EVERY 8 HOURS FOR 10 DAYS DELETE-Therapy completed 01/19/2021 02/24/2021 omeprazole (PRILOSEC) 20 mg Oral Capsule, Delayed Release(E.C.) TAKE 1 CAP BY MOUTH DAILY. DELETE-Duplicate 08/10/2020 02/24/2021 albuterol (PROVENTIL) 2.5 mg /3 mL (0.083 %) Inhl Solution for Nebulization Take 3 mL by nebulization every 4 hours as needed for Wheezing. Reorder 05/05/2020 02/24/2021 documented as of this encounter Care Teams Shingles Roofer Relationship Specialty Start Date End Date Cristiane Shirley MD [address] [place] [address] PCP - General Family Medicine 08/20/18 12/29/23 Garett Holt MD Internal Medicine-Gastroentero logy 12/22/12 Ruiz Stokes MD [address] [place] [address] Internal Medicine-Cardiovascul ar Disease 07/25/14 Yenny Schwab MD [address] [facility] [address], [place] [id number] Internal Medicine-Rheumatology 12/11/16 Joselyn Chance, RN Director Quality Assurance Registered Nurse 05/05/20 03/08/21 Nuria Gonzalez BA, COS Case Mothers Helper 02/08/21 02/27/21 documented as of this encounter
--- OUTSIDE RECORDS SUMMARY | 2024-07-22 16:03 | XMS_ITS | Encounter Summary ---
Author Organization [place] [address] Care Team Providers Care Service Learning Coordinator Name Role Phone Garett Holt MD Unavailable [phone] Ruiz Stokes MD Unavailable [phone] Yenny Schwab MD Unavailable [phone] Cristiane Shirley MD Primary Care Provider [phone] Reason for Visit * Reason Comments Medication Refill Encounter Details Date Type Department Care Team (Late st Contact Info) Description 07/08/2021 Refill [facility] [address] [place] [address] Cristiane Shirley MD [address] [place] [address] Medication Refill Social History Tobacco Use Types [...] Date Recorded PHQ-2 Total Score 0 09/29/2020 [facility] [place] of Occupat ional Health - Occupational Stress [...] tablet by mouth once daily 63 Tablet 07/09/2021 07/16/2021 documented in this encounter Plan of Treatment Upcoming Encounters Date Type Department Care Team (Late st Contact Info) Description 07/29/2024 9:00 AM EST Appointment [facility] [address] [place], [place] [id number] Jomar Kim MD [address] [place] [address] documented as of this encounter Goals Goal Patient Goal Type Associated Problems Recent Progress Patient-Stated? Author Blood Pressure < 140/90 Blood Pressure 110/72(04/09 2:44 PM EDT) No Rachel Rogers RMA BMI (Calculated) < 30 General 50.9(2023 2:44 PM EDT) No Rachel Rogers RMA Eat better, exercise, reach an ideal body weight General No Ni Clinton, subway repair supervisor Healing General On track(12/03 9:18 AM EDT) [...] neuropathy weekly. ?? Refer to PCP and/or Jewelry Estimator, Vascular Specialist as indicated. ?? Monitor patient [...] Da te loratadine (CLARITIN) 10 mg Oral TabletIndications:Seasona l allergic rhinitis due to pollen Take 1 Tab by mouth daily. 01/08/2021 07/09/2021 documented as of this encounter Care Teams Service Learning Coordinator Relationship Specialty Start Date End Date Cristiane Shirley MD [address] [place] [address] PCP - General Family Medicine 08/20/18 12/29/23 Garett Holt MD Internal Medicine-Gastroenterology 12/22/12 Ruiz Stokes MD [address] [place] [id number] Internal Medicine-Cardiovascular Disease 07/25/14 Yenny Schwab MD [address] [facility] [address] [place] [address] Internal Medicine-Rheumatology 12/11/16 documented as of this encounter
--- OUTSIDE RECORDS SUMMARY | 2024-07-22 16:03 | XMS_ITS | Encounter Summary ---
Author Organization [place] [address] Care Team Providers Care Car Whacker Name Role Phone Garett [place] MD Unavailable [phone] Ruiz Stokes MD Unavailable [phone] Yenny Schwab MD Unavailable [phone] Cristiane Shirley MD Primary Care Provider [phone] Reason for Visit * Reason Comments CM- Telephonic Outreach CM- Longitudinal Graduation Encounter Details Date Type Department Care Team (Late st Contact Info) Description 03/09/2021 10:15 AM EDT Telemedicine [facility] [address] [place] [address] Joselyn Chance RN Encounter for support and coordination of transition of care (Primary Dx) Social History Tobacco Use Types [...] Date Recorded PHQ-2 Total Score 0 09/29/2020 [facility] - Occupational Stress Questionnaire Answer [...] or suspected to have Coronavirus / COVID-19? Unable to assess 03/09/2021 10:13 AM EDT documented as of this encounter [...] documented in this encounter Progress Notes * Joselyn Chance RN - 03/09/2021 10:15 AM EDT Care Management final visit: - Date of longitudinal care coordination initiated: 05/05/20 - Date of discharge from care coordination: 03/09/21 - Reason for discharge: o Patient's Janey denies ongoing needs from RN CC at this time. Assessment: - Symptoms: Patient's Janey denies any concerns at this time. - Tobacco use: o Reviewed; patient reports no change in smoking history Medications: - Patient's declines to review medications at this time. - Patient's denies any questions or concerns related to medications. Education/handouts: - Education: o Reinforced previous education with patient on: RN CC role in PCP office. Patient's denieshaving additional needs at this time. Patient did receive the education about use of the nebulizer, obtained new supplies and has been using her nebulizer machine per report. - Handouts: o No Handouts given - MyChart already active and access confirmed with patient. Goals: Goals Addressed This Visit's Progress ??? COMPLETED: Patient will obtain new administration set for nebulizer so this DME can be utilized. On track ??? Patients abdominal discomfort will improve or resolve by next follow up call from RN CC. Not ontrack Unable to meet all goals for Care Coordination as reports patient continues to have abdominal discomfort and this has been an ongoing issue. Next Steps: - Care Coordination contact information reviewed - Patient agreeable to follow up with school childcare attendant as needs arise. Patient discharged from [facility]. documented in this encounter Plan of Treatment Upcoming Encounters Date Type Department Care Team (Late st Contact Info) Description 07/29/2024 9:00 AM EST Appointment [facility] [address] [place], [place] [id number] Jomar Kim MD [address] [place] [address] documented as of this encounter Goals Goal Patient Goal Type Associated Problems Recent Progress Patient-Stated? Author Blood Pressure < 140/90 Blood Pressure 110/72(04/09 2:44 PM EDT) No Rachel Rogers RMA BMI (Calculated) < 30 General 50.9(2023 2:44 PM EDT) No Rachel Rogers RMA Eat better, exercise, reach an ideal body weight General No Ni Clinton, clinical project assistant Healing General On track(12/03 9:18 AM [...] neuropathy weekly. ?? Refer to PCP and/or Money Room Supervisor, Vascular Specialist as indicated. ?? Monitor [...] this encounter Visit Diagnoses Diagnosis Encounter for support and coordination of transition of care- Primary documented in this encounter Care Teams Car Whacker Relationship Specialty Start Date End Date Cristiane Shirley MD [address] [place] [address] PCP - General Family Medicine 08/20/18 12/29/23 Garett [place] MD Internal Medicine-Gastroenterology 12/22/12 Ruiz Stokes MD [address] [place] [address] Internal Medicine-Cardiovascular Disease 07/25/14 Yenny Schwab MD 651 [facility] [address] [place], [place] [id number] Internal Medicine-Rheumatology 12/11/16 documented as of this encounter
--- OUTSIDE RECORDS SUMMARY | 2024-07-22 16:03 | XMS_ITS | Encounter Summary ---
Author Organization [place] [address] Care Team Providers Care Associate Director Of Nursing Name Role Phone Garett [place] MD Unavailable [phone] Ruiz Stokes MD Unavailable [phone] Yenny Schwab MD Unavailable [phone] Cristiane Shirley MD Primary Care Provider [phone] Joselyn Chance RN Unavailable Unavail able Nuria Gonzalez BA, COS Unavailable Unavailable Encounter Details Date Type Department Care Team (Latest Contact Info) Description 02/24/2021 1:04 PM EDT - 02/24/2021 11:59 PM EDT Hospital Encounter [facility] [address] [address] Type 2 diabetes mellitus without complication, without long-term current use of insulin (HCC) Discharge Disposition: Home or Self Care Social [...] Date Recorded PHQ-2 Total Score 0 09/29/2020 [facility]at ional Health - [...] 30 Tab 11 09/14/2019 Nebulizer Accessories Misc KitIndications:Acu te bronchitis, unspecified organism Nebulizer accessories 1 Kit 02/24/2021 amLODIPine (NORVASC) 10 mg Oral TabletIndications: Essential hypertension Take 1 Tab by mouth daily. 90 Tab 01/11/2021 03/27/20 21 aspirin 81 mg Oral Tablet, Delayed Release (E.C.) TAKE 1 TABLET BY MOUTH DAILY 91 Tab 11 10/24/2020 12/04/19 22 atorvastatin (LIPITOR) 20 mg Oral Tablet TAKE 1 TABLET BY MOUTH EVERY DAY 90 Tab 2 08/10/2020 03/27/20 21 ciprofloxacin HCl (CIPRO) 500 mg Oral TabletIndications: UTI (urinary tract infection), uncomplicated Take 1 Tab by mouth 2 times daily for 7 days. 14 Tab 02/24/2021 03/03/20 21 fluticasone propionate (FLONASE) 50 mcg/actuation Nasl [place], SuspensionIndicati ons:ETD (Eustachian tube dysfunction), right Use 1 spray(s) in each nostril once daily 16 g 01/15/2021 05/21/20 21 lisinopriL (PRINIVIL;ZESTRIL) 20 mg Oral Tablet tabletIndications: Essential hypertension Take 1 Tab by mouth daily. 90 Tab 01/11/2021 03/27/20 21 loratadine (CLARITIN) 10 mg Oral TabletIndications: Seasonal allergic rhinitis due to pollen Take 1 Tab by mouth daily. 63 Tab 2 01/08/2021 07/09/20 21 metFORMIN (GLUCOPHAGE) 500 mg Oral Tablet Take 1 Tab by mouth daily (with breakfast). 90 Tab 02/06/2021 03/27/20 21 oxybutynin (DITROPAN-XL) 10 mg Oral Tablet Extended Rel 24 hr Take 1 Tab by mouth 2 times daily. 180 Tab 02/08/2021 05/07/20 21 documented as of this encounter Discharge Disposition Disposition Code Departure Means Destination Home or Self Care documented in this encounter Plan of Treatment Upcoming Encounters Date Type Department Care Team (Late st Contact Info) Description 07/29/2024 9:00 AM EST Appointment [facility] [address] [place] [address] Jomar Kim MD [address] [place] [address] documented as of this encounter Goals Goal Patient Goal Type Associated Problems Recent Progress Patient-Stated? Author Blood Pressure < 140/90 Blood Pressure 110/72(04/09 2:44 PM EDT) No Rachel Rogers RMA BMI (Calculated) < 30 General 50.9(2023 2:44 PM EDT) No Rachel Rogers RMA Eat better, exercise, reach an ideal body weight General No Ni Clinton, asset protection officer Healing General On track(12/03 9:18 AM EDT) [...] neuropathy weekly. ?? Refer to PCP and/or Jewel Bearing Facer, Vascular Specialist as indicated. ?? Monitor patient [...] Procedure Name Priority Date/Time Associated Diagnosis Comments TSH REFLEX Routine 02/24/2021 1:04 PM EDT Type 2 diabetes mellitus without complication, without long-term current use of insulin (HCC) HEMOGLOBIN A1C Routine 02/24/2021 1:04 PM EDT Type 2 diabetes mellitus without complication, without long-term current use of insulin (HCC) LIPID SCREEN Routine 02/24/2021 1:04 PM EDT Type 2 diabetes mellitus without complication, without long-term current use of insulin (HCC) COMPREHENSIVE METABOLIC PANEL Routine 02/24/2021 1:04 PM EDT Type 2 diabetes mellitus without complication, without long-term current use of insulin (HCC) documented in this encounter Results * TSH REFLEX (02/24/2021 1:04 PM EDT) TSH Reflex 1.040 0.270 - 4.200 mcIU/mL 02/24/2021 6:50 PM EDT [email or web address] Blood VENOUS BLOOD / Unknown Venipuncture / Unknown 02/24/2021 1:04 PM EDT 02/24/2021 1:04 PM EDT Narrative [facility] - 02/24/2021 6:50 PM EDT Ingestion of imn doses of biotin (>5 mg/day) taken within 8 hours of drawing blood sample can interfere with this immunoassay test. us Cristiane Shirley MD CHEMISTRY ORDERABLES Final Res ult [email or web address], [facility] [address] [facility] , [place] [address] * COMPREHENSIVE METABOLIC PANEL (02/24/2021 1:04 PM [...] mg/dL 02/24/2021 6:50 PM EDT [facility], [facility] Creatinine 0.76 0.51 - 1.30 mg/dL 02/24/2021 6:50 PM EDT [facility], [facility] Albumin 4.1 3.2 - 4.6 gm/dL 02/24/2021 6:50 PM EDT [facility], [facility] Total Protein 7.3 6.4 - 8.3 gm/dL 02/24/2021 6:50 PM EDT [facility], [facility] Bili Total 0.4 0.1 - 1.3 mg/dL 02/24/2021 6:50 PM EDT [facility], [facility] ALT 8 <=41 U/L 02/24/2021 6:50 PM EDT [facility] AST 15 <=40 U/L 02/24/2021 6:50 PM EDT [facility] Alk Phos 84 36 - 123 U/L 02/24/2021 6:50 PM EDT [facility] GFR Afr Am 96 >=60 mL/min/1.7 3 m2 02/24/2021 6:50 PM EDT [facility] GFR Non Afr Am 83 >=60 mL/min/1.7 3 m2 02/24/2021 6:50 PM EDT [facility] Comment: This estimated GFR was [...] ORDERABLES Final Res ult [facility] [address] [facility] [facility] , [place] [address] [facility] [address] [place] [address] * LIPID SCREEN (02/24/2021 1:04 PM EDT) Cholesterol 141 <200 mg/dL 02/24/2021 6:50 PM EDT [facility] Comment: < 200 ?Desirable 200 - 239 ? Borderline High >= 240 ?High Triglyceride 68 <150 mg/dL 02/24/2021 6:50 PM EDT [facility] Comment: < 150 ? Normal 150 - 199 ?Borderline High 200 - 499 ?High ??>= 500 ? Very High HDL 46 >=40 mg/dL 02/24/2021 6:50 PM EDT [facility] Comment: ??> 60 ?Optimal 40 - 60 ?Acceptable ?? < 40 ?Low LDL Calculated 81 <100 mg/dL 02/24/2021 6:50 PM EDT [facility] Comment: < 100 ?Optimal 100 - 129 ? Near or above optimal 130 - 159 ? Borderline High 160 - 189 ? High >= 190 ?Very High Non-HDL-C Calculated 95 <=129 mg/dL 02/24/2021 6:50 PM EDT [facility] Comment: <130 ?Desirable 130-159 Above Desirable 160-189 Borderline High 190-219 High >= 220 ??Very High Fasting Specimen? Yes None 021 6:50 PM EDT [facility] Blood VENOUS BLOOD / Unknown Venipuncture / Unknown 02/24/2021 1:04 PM EDT 02/24/2021 1:04 PM EDT us Cristiane [place] MD CHEMISTRY ORDERABLES Final Res ult [facility], [place] [address] [facility] [address] [place] [address] * HEMOGLOBIN A1C (02/24/2021 1:04 PM EDT) Hgb A1C 5.6 4.2 - 5.6 % 02/24/2021 6:44 PM EDT [email or web address], [facility] Est. Avg Glucose 114 mg/dL 02/24/2021 6:44 PM EDT [email or web address] Blood VENOUS BLOOD / Unknown Venipuncture / Unknown 02/24/2021 1:04 PM EDT 02/24/2021 1:04 PM EDT Narrative [facility] - 02/24/2021 6:44 PM EDT REFERENCE RANGE: Normal: 4.0-5.6% Pre-diabetes: 5.7-6.4% Provisional diagnosis of diabetes: >6.4% Hgb F>10% and anything which shortens red cell survival, such as hemolytic anemia, or unstable hemoglobin variants such as HbSS, HbSC, or HbCC, will lower the HbA1c value associated with a given level of glycemic control. ? us Cristiane Shirley MD CHEMISTRY ORDERABLES Final Res ult [email or web address] , [place] [address] documented in this encounter Visit Diagnoses Diagnosis Type 2 diabetes mellitus without complication, without long-term current use of insulin (HCC) documented in this encounter Care Teams Associate Director Of Nursing Relationship Specialty Start Date End Date Cristiane Shirley MD [address] [place] [address] PCP - General Family Medicine 08/20/18 12/29/23 Garett [place] MD Internal Medicine-Gastroentero logy 12/22/12 Ruiz [place] MD [address] [place] [id number] Internal Medicine-Cardiovascul ar Disease 07/25/14 Yenny Schwab MD [address] [place] [id number] Internal Medicine-Rheumatology 12/11/16 Joselyn Chance, RN Sample Sawyer Registered Nurse 05/05/20 03/08/21 Nuria Gonzalez BA, COS Case Assistant Drafter 02/08/21 02/27/21 documented as of this encounter
--- OUTSIDE RECORDS SUMMARY | 2024-07-22 16:03 | XMS_ITS | Encounter Summary ---
Author Organization [place] [address] Care Team Providers Care Overcoil Stepper Name Role Phone Garett [place] MD Unavailable [phone] Ruiz Stokes MD Unavailable [phone] Yenny Schwab MD Unavailable [phone] Cristiane [place] MD Primary Care Provider Reason for Visit * Reason Comments Medication Refill Encounter Details Date Type Department Care Team (Late st Contact Info) Description 05/21/2021 Refill [facility] [address] [place] [address] Cristiane Shirley MD [address] [place] [address] Medication Refill Social History Tobacco Use Types [...] Date Recorded PHQ-2 Total Score 0 09/29/2020 [facility] of Occupat ional Health - Occupational Stress [...] Date fluticasone propionate (FLONASE) 50 mcg/actuation Nasl [place], SuspensionIndicati ons:ETD (Eustachian tube dysfunction), right Use 1 spray(s) in each nostril once daily 16 g 05/21/2021 documented in this encounter Plan of Treatment Upcoming Encounters Date Type Department Care Team (Late st Contact Info) Description 07/29/2024 9:00 AM EST Appointment [facility] [address] [place], [place] [id number] Jomar Kim MD [address] [place] [address] documented as of this encounter Goals Goal Patient Goal Type Associated Problems Recent Progress Patient-Stated? Author Blood Pressure < 140/90 Blood Pressure 110/72(04/09 2:44 PM EDT) No Rachel Rogers RMA BMI (Calculated) < 30 General 50.9(2023 2:44 PM EDT) No aRchel Rogers RMA Eat better, exercise, reach an ideal body weight General No Ni Clinton, railroad car repair supervisor Healing General On track(12/03 9:18 [...] neuropathy weekly. ?? Refer to PCP and/or Nurse Sexual Assault, Vascular Specialist as indicated. ?? Monitor patient [...] te fluticasone propionate (FLONASE) 50 mcg/actuation Nasl [place], SuspensionIndications:ET D (Eustachian tube dysfunction), right Use 1 spray(s) in each nostril once daily 01/15/2021 05/21/2021 documented as of this encounter Care Teams Overcoil Stepper Relationship Specialty Start Date End Date Cristiane Shirley MD [address] [place] [address] PCP - General Family Medicine 08/20/18 12/29/23 Garett [place] MD Internal Medicine-Gastroenterology 12/22/12 Ruiz Stokes MD [address] [place] [address] Internal Medicine-Cardiovascular Disease 07/25/14 Yenny Schwab MD [address] [facility] Building [address] [place] [address] Internal Medicine-Rheumatology 12/11/16 documented as of this encounter
--- OUTSIDE RECORDS SUMMARY | 2024-07-22 16:03 | XMS_ITS | Encounter Summary ---
Author Organization [place] [address] Care Team Providers Care Isotope Technician Name Role Phone Garett [place] MD Unavailable [phone] Ruiz Stokes MD Unavailable [phone] Yenny Schwab MD Unavailable [phone] Cristiane [place] MD Primary Care Provider [phone] Reason for Visit * Reason Comments Medication Refill Encounter Details Date Type Department Care Team (Late st Contact Info) Description 03/26/2021 Refill [facility] [address] [place] [address] Cristiane Shirley MD [address] [place] [address] Medication Refill Social History Tobacco Use Types [...] Date Recorded PHQ-2 Total Score 0 09/29/2020 [facility] [place] of Occupat ional Health - Occupational Stress [...] Date atorvastatin (LIPITOR) 20 mg Oral Tablet TAKE 1 TABLET BY MOUTH EVERY DAY 90 Tab 03/27/2021 07/20/2021 omeprazole (PRILOSEC) 20 mg Oral Capsule, Delayed Release(E.C.) TAKE 1 CAP BY MOUTH DAILY. 98 Cap 3 03/27/2021 12/01/2021 lisinopriL (PRINIVIL;ZESTRIL) 20 mg Oral Tablet tabletIndications: Essential hypertension TAKE 1 TAB BY MOUTH DAILY. 90 Tab 03/27/2021 07/20/2021 metFORMIN (GLUCOPHAGE) 500 mg Oral Tablet TAKE 1 TAB BY MOUTH DAILY (WITH BREAKFAST). 90 Tab 03/27/2021 07/20/2021 amLODIPine (NORVASC) 10 mg Oral TabletIndications: Essential hypertension TAKE 1 TAB BY MOUTH DAILY. 90 Tab 03/27/2021 07/20/2021 documented in this encounter Miscellaneous Notes * Telephone Encounter - Post, Roxann Peck CPhT - 03/27/2021 9:38 AM EDT amLODIPine - Medication Refill Protocol passed. [facility] Action: Approved refills to noted follow-up date by provider or protocol if no follow-up date noted. metFORMIN - Medication Refill Protocol passed. short order cook Action: Approved refills to noted follow-up date by provider or protocol if no follow-up date noted. lisinopriL - Medication Refill Protocol passed. short order cook Action: Approved refills to noted follow-up date by provider or protocol if no follow-up date noted. omeprazole - Medication refill request deferred to office staff. short order cook Reason: Patient taking medication differently than prescribed atorvastatin - Medication Refill Protocol passed. short order cook Action: Approved refills to noted follow-up date by provider or protocol if no follow-up date noted. documented in this encounter Plan of Treatment Upcoming Encounters Date Type Department Care Team (Late st Contact Info) Description 07/29/2024 9:00 AM EST Appointment [facility] [address] [place] [address] Jomar Kim MD [address] [place] [address] documented as of this encounter Goals Goal Patient Goal Type Associated Problems Recent Progress Patient-Stated? Author Blood Pressure < 140/90 Blood Pressure 110/72(04/09 2:44 PM EDT) No Rachel Rogers RMA BMI (Calculated) < 30 General 50.9(2023 2:44 PM EDT) No Rachel Rogers RMA Eat better, exercise, reach an ideal body weight General No Ni Clinton, sql database programmer Healing General On track(12/03 9:18 AM [...] neuropathy weekly. ?? Refer to PCP and/or Java Software Architect, Vascular Specialist as indicated. ?? Monitor patient [...] TAKE 1 TABLET BY MOUTH EVERY DAY 08/10/2020 03/27/2021 amLODIPine (NORVASC) 10 mg Oral TabletIndications:Essenti al hypertension Take 1 Tab by mouth daily. 01/11/2021 03/27/2021 lisinopriL (PRINIVIL;ZESTRIL) 20 mg Oral Tablet tabletIndications:Essenti al hypertension Take 1 Tab by mouth daily. 01/11/2021 03/27/2021 metFORMIN (GLUCOPHAGE) 500 mg Oral Tablet Take 1 Tab by mouth daily (with breakfast). 02/06/2021 03/27/2021 documented as of this encounter Care Teams Isotope Technician Relationship Specialty Start Date End Date Cristiane [place] MD [address] [place] [address] PCP - General Family Medicine 08/20/18 12/29/23 Garett [place] MD Internal Medicine-Gastroenterology 12/22/12 Ruiz Sotkes MD [address] [place] [address] Internal Medicine-Cardiovascular Disease 07/25/14 Yenny Schwab MD [address] [place] [address] Internal Medicine-Rheumatology 12/11/16 documented as of this encounter
--- OUTSIDE RECORDS SUMMARY | 2024-07-22 16:03 | XMS_ITS | Encounter Summary ---
Author Organization [place] [address] Care Team Providers Care French Folder Name Role Phone Garett [place] MD Unavailable [phone] Ruiz Stokes MD Unavailable [phone] Yenny Schwab MD Unavailable [phone] Cristiane [place] MD Primary Care Provider [phone] Joselyn Chance RN Unavailable Unavail able Nuria Gonzalez BA, COS Unavailable Unavailable Reason for Visit * Reason Onset Date Comments Central Patient Navigator Outreach 02/21/2021 Mammogram Encounter Details Date Type Department Care Team (Late st Contact Info) Description 02/21/2021 Patient Outreach SEP [address] [place] [address] Cristiane [place] MD [address] [place] [address] Central Patient Navigator Outreach (Mammogram) Social History Tobacco Use Types Packs/Day Years [...] Date Recorded PHQ-2 Total Score 0 09/29/2020 [facility] of Occupat ional Health - [...] documented in this encounter Progress Notes * Joshua Neville - 02/22/2021 11:50 AM EDT Patient Outreach: Care Gap Outreach Attempt Count: inbound Care Gaps Addressed pond tender: Annual Wellness Visit, Diabetic Eye Exam, Diabetic A1c, Mammogram, Cervical Cancer Screening, Colorectal Cancer Screening and Lipid Panel w/reflex. AWV questionnaire completed 09/29/20. Outcome: Annual Wellness Visit Scheduled 02/24/21 and Diabetic Eye Exam Scheduled 02/24/21-will discuss all other care gaps in office * Cheyenne Canales RN - 02/21/2021 5:53 PM EDT Patient Outreach: Care Gap Outreach Attempt Count: 1st Care Gaps Addressed pond tender: Annual Wellness Visit, Diabetic Eye Exam, Diabetic A1c, Mammogram, Cervical Cancer Screening, Colorectal Cancer Screening and Lipid Panel w/reflex. AWV questionnaire completed 09/29/20. Outcome: Patient not available, Left message to return call at and [employer] message sent. Spouse reports patient is sleeping. documented in this encounter Plan of Treatment Upcoming Encounters Date Type Department Care Team (Late st Contact Info) Description 07/29/2024 9:00 AM EST Appointment [facility] [address] [place], [place] [id number] Jomar Kim MD [address] [place], [place] [id number] documented as of this encounter Goals Goal Patient Goal Type Associated Problems Recent Progress Patient-Stated? Author Blood Pressure < 140/90 Blood Pressure 110/72(04/09 2:44 PM EDT) No Rachel Rogers RMA BMI (Calculated) < 30 General 50.9(2023 2:44 PM EDT) No Rachel Rogers RMA Eat better, exercise, reach an ideal body weight General No Ni Clinton, software engineering analyst Healing General On track(12/03 9:18 AM [...] neuropathy weekly. ?? Refer to PCP and/or Centrifugal Separator, Vascular Specialist as indicated. ?? Monitor patient [...] on filedocumented in this encounter Care Teams French Folder Relationship Specialty Start Date End Date Cristiane [place] MD [address] [place], [place] [id number] PCP - General Family Medicine 08/20/18 12/29/23 Garett [place] MD Internal Medicine-Gastroentero logy 12/22/12 Ruiz Stoeks MD [address] [place] [address] Internal Medicine-Cardiovascul ar Disease 07/25/14 Yenny Schwab MD [address] [facility] [address] [place] [address] Internal Medicine-Rheumatology 12/11/16 Joselyn Chance, RN Director Of Student Aid Registered Nurse 05/05/20 03/08/21 Nuria Gonzalez BA, COS Case Bead Trimmer 02/08/21 02/27/21 documented as of this encounter
--- OUTSIDE RECORDS SUMMARY | 2024-07-22 16:03 | XMS_ITS | Encounter Summary ---
Author Organization [place] [address] Care Team Providers Care Tumbler Plater Name Role Phone Garett Holt MD Unavailable [phone] Ruiz Stokes MD Unavailable [phone] Yenny Schwab MD Unavailable [phone] Cristiane Shirley MD Primary Care Provider Reason for Visit * Reason Onset Date Comments Central Patient Navigator Outreach 08/01/2021 iris exam Encounter Details Date Type Department Care Team (Late st Contact Info) Description 08/01/2021 Patient Outreach [facility] [address] [place] [address] Cristiane Shirley MD [address] [place] [address] Central Patient Navigator Outreach (iris exam) Social History Tobacco Use Types Packs/Day Years [...] Date Recorded PHQ-2 Total Score 0 09/29/2020 [facility]at ional [facility] - [...] documented in this encounter Progress Notes * Lorin Levine - 08/01/2021 3:10 PM EST Patient Outreach: Care Gap Outreach Attempt Count: 1st Care Gaps Addressed constitutional law professor: Diabetic Eye Exam and Mammogram Outcome: Left message to return call at and MyChart message sent documented in this encounter Plan of Treatment Upcoming Encounters Date Type Department Care Team (Late st Contact Info) Description 07/29/2024 9:00 AM EST Appointment [facility] [address] [place] [address] Jomar Kim MD [address] [place] [address] documented as of this [...] weekly. ?? Refer to PCP and/or Retail Support Specialist, Vascular Specialist as indicated. ?? Monitor [...] documented as of this encounter Care Teams Tumbler Plater Relationship Specialty Start Date End Date Cristiane Shirley MD [address] [place] [address] PCP - General Family Medicine 08/20/18 12/29/23 Garett Holt MD Internal Medicine-Gastroenterology 12/22/12 Ruiz Stokes MD [address] [place] [address] Internal Medicine-Cardiovascular Disease 07/25/14 Yenny Schwab MD 651 [facility] Building [address] [place] [address] Internal Medicine-Rheumatology 12/11/16 documented as of this encounter
--- OUTSIDE RECORDS SUMMARY | 2024-07-22 16:03 | XMS_ITS | Encounter Summary ---
Author Organization [place] [address] Care Team Providers Care Admissions Consultant Name Role Phone Garett Holt MD Unavailable [phone] Ruiz Stokes MD Unavailable [phone] Yenny Schwab MD Unavailable [phone] Cristiane Shirley MD Primary Care Provider [phone] Reason for Visit * Reason Onset Date Comments Medication Management 07/17/2021 ciprofloxa bing HCl (CIPRO) 250 mg Oral Evbkzr53 Bszcaz805/07/2021 Encounter Details Date Type Department Care Team (Late st Contact Info) Description 07/17/2021 Telephone [facility] [address] [place] [address] Cristiane Shirley MD [address] [place] [address] Medication Management (ciprofloxacin HCl (CIPRO) 250 mg Oral Oxhiwx89 Nvfdeh869/2020) Social History Tobacco Use Types Packs/Day Years [...] Score 0 09/29/2020 [facility] - Occupational Stress Questionnaire [...] 1:07 PM EST Jessee Skelton MA * Is the person blind [...] times daily for 5 days. 10 Tablet 07/17/2021 documented in this encounter Miscellaneous Notes * Telephone Encounter - Jose J Conroy MA - 07/17/2021 10:32 AM EST Pt states the rx was sent to [facility] but they are having issues with the pharmacy an would like this called into a different pharmacy. Pt wants the rx sent to [facility] in [place] ciprofloxacin HCl (CIPRO) 250 mg Oral Tablet 10 Tablet 0 07/14/2021 07/19/2021 Sig - Route: Take 1 Tablet by mouth 2 times daily for 5 days. - Oral Sent to pharmacy as: ciprofloxacin 250 mg tablet (Cipro) E-Prescribing Status: Receipt confirmed by pharmacy (07/14/2021 12:20 PM EDT) [facility] [place] [place] [id number] [address] [phone] Associate Signed OrdersPatient Estimate documented in this encounter Plan of Treatment Upcoming Encounters Date Type Department Care Team (Late st Contact Info) Description 07/29/2024 9:00 AM EST Appointment [facility] [address] [place] [id number] Jomar Kim MD [address] [facility] [place] [place] [id number] documented as of this encounter Goals Goal Patient Goal Type Associated Problems Recent Progress Patient-Stated? Author Blood Pressure < 140/90 Blood Pressure 110/72(04/09 2:44 PM EDT) No Rachel Rogers RMA BMI (Calculated) < 30 General 50.9(2023 2:44 PM EDT) No Rachel Rogers, RMA Eat better, exercise, reach an ideal body weight General No Ni Clinton, retail merchandiser technician Healing General On track(12/03 9:18 AM [...] neuropathy weekly. ?? Refer to PCP and/or Director Plans, Vascular Specialist as indicated. ?? Monitor patient [...] as of this encounter Visit Diagnoses Diagnosis UTI (urinary tract infection), uncomplicated Urinary tract infection, site not specified documented in this encounter Discontinued Medications Medication Sig Discontinue Reason Start Date End Da te ciprofloxacin HCl (CIPRO) 250 mg Oral TabletIndications:UTI (urinary tract infection), uncomplicated Take 1 Tablet by mouth 2 times daily for 5 days. Reorder 07/14/2021 07/17/2021 documented as of this encounter Additional Health Concerns Assessment Noted Time A fall risk assessment has been complete d for the patient 07/14/2021 12:13 PM EDT documented as of this encounter Care Teams Admissions Consultant Relationship Specialty Start Date End Date Cristiane Shirley MD [address] [place] [address] PCP - General Family Medicine 08/20/18 12/29/23 Garett Holt MD Internal Medicine-Gastroenterology 12/22/12 Ruiz Stokes MD [address] [place] [address] Internal Medicine-Cardiovascular Disease 07/25/14 Yenny Schwab MD [address] [address] Internal Medicine-Rheumatology 12/11/16 documented as of this encounter
--- OUTSIDE RECORDS SUMMARY | 2024-07-22 16:03 | XMS_ITS | Encounter Summary ---
Author Organization [facility] [place] [address] Care Team Providers Care Conventional Underwriter Name Role Phone Garett Holt MD Unavailable [phone] Ruiz Stokes MD Unavailable [phone] Yenny Schwab MD Unavailable [phone] Cristiane Shirley MD Primary Care Provider [phone] Encounter Details Date Type Department Care Team (Latest Contact Info) Description 07/14/2021 Travel Social History Tobacco Use Types Packs/Day [...] Date Recorded PHQ-2 Total Score 0 09/29/2020 [facility] [place] of Occupat ional Health - Occupational Stress [...] 9:00 AM EST Appointment [facility] [address] [place] [address] Jomar Kim MD [address] [place] [address] documented as of this encounter [...] neuropathy weekly. ?? Refer to PCP and/or It Program Engagement Director, Vascular Specialist as indicated. ?? Monitor [...] documented as of this encounter Care Teams Conventional Underwriter Relationship Specialty Start Date End Date Cristiane Shirley MD [address] [place], [place] [id number] PCP - General Family Medicine 08/20/18 12/29/23 Garett Holt MD Internal Medicine-Gastroenterology 12/22/12 Ruiz Stokes MD [address] [place] [address] Internal Medicine-Cardiovascular Disease 07/25/14 Yenny Schwab MD [address] [address] Internal Medicine-Rheumatology 12/11/16 documented as of this encounter
--- OUTSIDE RECORDS SUMMARY | 2024-07-22 16:03 | XMS_ITS | Encounter Summary ---
Author Organization [facility] [place] [address] Care Team Providers Care Stave Block Roller Name Role Phone Garett Holt MD Unavailable [phone] Ruiz Stokes MD Unavailable [phone] Yenny Schwab MD Unavailable [phone] Cristiane Shirley MD Primary Care Provider Encounter Details Date Type Department Care Team (Latest Contact Info) Description 03/09/2021 Travel Social History Tobacco Use Types Packs/Day [...] Date Recorded PHQ-2 Total Score 0 09/29/2020 [facility] of Occupat ional Health - Occupational Stress [...] AM EST Appointment [facility] [address] [place] [address] Jomar Kim MD [address] [place] [address] documented as of this encounter Goals Goal Patient Goal Type Associated Problems Recent Progress Patient-Stated? Author Blood Pressure < 140/90 Blood Pressure 110/72(04/09 2:44 PM EDT) No Rachel Rogers RMA BMI (Calculated) < 30 General 50.9(2023 2:44 PM EDT) No Rachel Rogers RMA Eat better, exercise, reach an ideal body weight General No Ni Clinton, die maker bench stamping Healing General On track(12/03 9:18 AM EDT) [...] neuropathy weekly. ?? Refer to PCP and/or Septic Tank Service Technician, Vascular Specialist as indicated. ?? Monitor [...] on filedocumented in this encounter Care Teams Stave Block Roller Relationship Specialty Start Date End Date Cristiane Shirley MD [address] [place] [address] PCP - General Family Medicine 08/20/18 12/29/23 Garett Holt MD Internal Medicine-Gastroenterology 12/22/12 Ruiz Stokes MD [address] [place] [address] Internal Medicine-Cardiovascular Disease 07/25/14 Yenny Schwab MD [address] [address] Internal Medicine-Rheumatology 12/11/16 documented as of this encounter
--- OUTSIDE RECORDS SUMMARY | 2024-07-22 16:03 | XMS_ITS | Encounter Summary ---
Author Organization [place] [address] Care Team Providers Care Director Online Marketing Name Role Phone Garett Holt MD Unavailable [phone] Ruiz Stokes MD Unavailable [phone] Yenny Schwab MD Unavailable [phone] Cristiane Shirley MD Primary Care Provider [phone] Joselyn Chance RN Unavailable Unavail able Reason for Visit * Reason Onset Date Comments Transportation 02/28/2021 Encounter Details Date Type Department Care Team (Late st Contact Info) Description 02/28/2021 Patient Outreach [facility] [address] [place] [address] Nuria Gonzalez BA, COS Transportation Social History [...] Date Recorded PHQ-2 Total Score 0 09/29/2020 [facility] of Occupat ional [facility] - Occupational Stress Questionnaire Answer Date Recorded [...] Entry Date Author No 09/29/2020 1:07 PM Jsesee Parekh MA documented in this encounter Progress Notes * Nuria Gonzalez - 02/28/2021 12:00 PM EDT COS calling to follow up on transportation referral. COS spoke with patient's spouse Janey (yenifer chavez). COS notified spouse that they are within the [employer] (private pay public transportation for [facility]) service area and that this was verified by COS. COS educated spouseon wheelchair accessible transportation through [employer]. COS also provided the phone number to [facility] intake team [phone] and advised spouse to call for a full benefit screening for her medicareplan and [facility] can help to see if patient is eligible for medicaid and help to identify any other resources that might be beneficial for patient. COS advised spouse that [facility] is through the departmentof aging and independent living [facility] therefore they will be provided with non-biased information. Spouse stating he is aware of these resources. COS provided spouse of COS phone number and encouraged spouse to call COS if future needs arise. COS will no longer follow patient for transportation resources. Transportation Eligibility ?? Date of Evaluation: 02/28/2021 ?? Patient qualifies for the following transportation resources: ?? Public Transportation - [employer] for [facility] verified that they will roller picker at patient's address toll free ?? Outcome: ?? COS left voice mail for patient with phone number to [employer] documented in this encounter Plan of Treatment Upcoming Encounters Date Type Department Care Team (Late st Contact Info) Description 07/29/2024 9:00 AM EST Appointment [facility] [address] [place] [address] Jomar Kim MD [address] [place] [address] documented as of this encounter Goals Goal Patient Goal Type Associated Problems Recent Progress Patient-Stated? Author Blood Pressure < 140/90 Blood Pressure 110/72(04/09 2:44 PM EDT) No Rachel Rogers RMA BMI (Calculated) < 30 General 50.9(2023 2:44 PM EDT) No Rachel Rogers RMA Eat better, exercise, reach an ideal body weight General No Ni Clinton, silo erector Healing General On track(12/03 9:18 AM EDT) [...] neuropathy weekly. ?? Refer to PCP and/or Sort Line Worker, Vascular Specialist as indicated. ?? Monitor [...] on filedocumented in this encounter Care Teams Director Online Marketing Relationship Specialty Start Date End Date Cristiane Shirley MD [address] [place], [place] [id number] PCP - General Family Medicine 08/20/18 12/29/23 Garett Holt MD Internal Medicine-Gastroenterolog y 12/22/12 Ruiz Stokes MD [address] [place] [address] Internal Medicine-Cardiovascular Disease 07/25/14 Yenny Schwab MD [address] [address] Internal Medicine-Rheumatology 12/11/16 Joselyn Chance, RN Green Pipefitter Registered Nurse 05/05/20 03/08/21 documented as of this encounter
--- OUTSIDE RECORDS SUMMARY | 2024-07-22 16:04 | XMS_ITS | Encounter Summary ---
Author Organization [place] [address] Care Team Providers Care Rouge Sifter And Miller Name Role Phone Garett Holt MD Unavailable [phone] Ruiz Stokes MD Unavailable [phone] Yenny Schwab MD Unavailable [phone] Cristiane Shirley MD Primary Care Provider [phone] Joselyn Chance RN Unavailable Unavail able Reason for Visit * Reason Comments Medication Refill Encounter Details Date Type Department Care Team (Late st Contact Info) Description 01/08/2021 Refill [facility] [address] [place] [address] Cristiane Shirley MD [address] [place] [address] Medication Refill Social History Tobacco Use Types Packs/Day Years Used Date Smoking Tobacco: Former Cigarettes 1.5 12 0 01/24/1972 - 01/24/1984 Smokeless Tobacco: Never Alcohol Use Standard Drinks/Week Comments No 0 (1 standard drink = 0.6 oz pur e alcohol) PHQ-2 Answer Date Recorded PHQ-2 Total Score 0 09/29/2020 Sexually Active Control Partners Comments Yes Post-menopausal [...] have Coronavirus / COVID-19? No / Unsure 12/27/2020 2:59 PM EDT documented as of this encounter [...] 1 TAB BY MOUTH DAILY (WITH BREAKFAST). 30 Tab 01/08/2021 01/11/2021 lisinopriL (PRINIVIL;ZESTRIL) 20 mg Oral Tablet tabletIndications:E ssential hypertension TAKE 1 TAB BY MOUTH DAILY. 30 Tab 01/08/2021 01/11/2021 amLODIPine (NORVASC) 10 mg Oral TabletIndications:E ssential hypertension TAKE 1 TAB BY MOUTH DAILY. 30 Tab 01/08/2021 01/11/2021 documented in this encounter Miscellaneous Notes * Telephone Encounter - Lyssa Anne CPhT - 01/08/2021 5:19 PM EDT metFORMIN Medication Refill Protocol failed due to need for appointment and labs/vitals. vp biology Reason: Past follow-up date noted by protocol. Protocol required follow-up within 6 months. Last assessed at visit 05/25/20. There is no appointment scheduled. vp biology Reason: A1c not on file within 6 months, Lipid panel not on file within 12 months and Serum creatinine not on file within 6 months vp biology Action: Defer to office. Patient needs labwork or vitals completed. Routed to office staff for outreach for appointment scheduling and labs/vitals. lisinopriL Medication Refill Protocol failed due to need for appointment and labs/vitals. vp biology Reason: Past follow-up date noted by protocol. Protocol required follow-up within 6 months. Last assessed at visit 05/25/20. There is no appointment scheduled. vp biology Reason: Serum creatinine not on file within 6 months vp biology Action: Defer to office. Patient needs labwork or vitals completed. Routed to office staff for outreach for appointment scheduling and labs/vitals. amLODIPine Medication Refill Protocol failed due to need for appointment and labs/vitals. vp biology Reason: Past follow-up date noted by protocol. Protocol required follow-up within 6 months. Last assessed at visit 05/25/20. There is no appointment scheduled. vp biology Reason: Serum creatinine not on file within 6 months vp biology Action: Defer to office. Patient needs labwork or vitals completed. Routed to office staff for outreach for appointment scheduling and labs/vitals. documented in this encounter Plan of Treatment Upcoming Encounters Date Type Department Care Team (Late st Contact Info) Description 07/29/2024 9:00 AM EST Appointment [facility] [address] [place] [id number] Jomar Kim MD [address] [place] [address] documented as of this encounter Goals Goal [...] neuropathy weekly. ?? Refer to PCP and/or Tool Programmer, Vascular Specialist as indicated. ?? Monitor patient [...] 5.6( 024 3:04 PM EST) Rachel Regan, Leigh documented as of this encounter Visit Diagnoses Diagnosis Essential hypertension Unspecified essential hypertension documented in this encounter Discontinued Medications Medication Sig Discontinue Reason Start Date End Da metFORMIN (GLUCOPHAGE) 500 mg Oral Tablet TAKE 1 TAB BY MOUTH DAILY (WITH BREAKFAST). 01/02/2021 01/08/2021 amLODIPine (NORVASC) 10 mg Oral TabletIndications:Essentia l hypertension TAKE 1 TAB BY MOUTH DAILY. 01/02/2021 01/08/2021 lisinopriL (PRINIVIL;ZESTRIL) 20 mg Oral Tablet tabletIndications:Essentia l hypertension TAKE 1 TAB BY MOUTH DAILY. 01/02/2021 01/08/2021 documented as of this encounter Care Teams Rouge Sifter And Miller Relationship Specialty Start Date End Date Cristiane Shirley MD [address] [place] [address] PCP - General Family Medicine 08/20/18 12/29/23 Garett Holt MD Internal Medicine-Gastroenterolog y 12/22/12 Ruiz Stokes MD [address] [place] [address] Internal Medicine-Cardiovascular Disease 07/25/14 Yenny Schwab MD [address] [facility] Building [address] [place], [place] [address] Internal Medicine-Rheumatology 12/11/16 Joselyn Chance, RN Photogrammetric Surveyor Registered Nurse 05/05/20 03/08/21 documented as of this encounter
--- OUTSIDE RECORDS SUMMARY | 2024-07-22 16:04 | XMS_ITS | Encounter Summary ---
Author Organization [facility] [place] [address] Care Team Providers Care Weather Reporter Name Role Phone Garett Holt MD Unavailable [phone] Ruiz Stokes MD Unavailable [phone] Yenny Schwab MD Unavailable [phone] Cristiane Shirley MD Primary Care Provider [phone] Joselyn Chance RN Unavailable Unavail able Encounter Details Date Type Department Care Team (Latest Contact Info) Description 10/12/2020 Travel Social History Tobacco Use Types Packs/Day [...] have Coronavirus / COVID-19? No / Unsure 10/12/2020 7:55 AM EST documented as of this encounter Functional Status * Is the person deaf or does he/she have serious difficulty hearing? Answer Date of Assessment Author No 09/29/2020 1:07 PM EST Jessee Skeltno MA * Is the person blind or [...] Jessee Parekh MA documented in this encounter Plan of Treatment Upcoming Encounters Date Type Department Care Team (Late st Contact Info) Description 07/29/2024 9:00 AM EST Appointment [facility] [address] [place] [address] Jomar Kim MD [address] [place] [address] documented as of this encounter [...] neuropathy weekly. ?? Refer to PCP and/or Junior Graphic Designer, Vascular Specialist as indicated. ?? Monitor patient compliance with wound care, diabetes management and proper offloading. Patients abdominal discomfort will improve or resolve by next follow up call from RN CC. General Not on track(03/09 11:41 AM EDT) No Josleyn Chance RN Stay Tobacco Free Lifestyle On track(02/07 10:23 AM EDT) No Wendy Espinoza LPN HEMOGLOBIN A1C < 7.0 Result Component 5.6( 024 3:04 PM EST) No Rachel Rogers RMA documented as of this encounter Visit Diagnoses Not on filedocumented in this encounter Care Teams Weather Reporter Relationship Specialty Start Date End Date Cristiane Shirley MD [address] [place] [address] PCP - General Family Medicine 08/20/18 12/29/23 Garett Holt MD Internal Medicine-Gastroenterolog y 12/22/12 Ruiz Stokes MD [address] [place] [address] Internal Medicine-Cardiovascular Disease 07/25/14 Yenny Schwab MD [address] [address] Internal Medicine-Rheumatology 12/11/16 Joselyn Chance, RN Bessemer Converter Operator Registered Nurse 05/05/20 03/08/21 documented as of this encounter
--- OUTSIDE RECORDS SUMMARY | 2024-07-22 16:04 | XMS_ITS | Encounter Summary ---
Author Organization [place] [address] Care Team Providers Care Sealer Dry Cell Name Role Phone Garett Holt MD Unavailable [phone] Ruiz Stokes MD Unavailable [phone] Yenny Schwab MD Unavailable [phone] Cristiane Shirley MD Primary Care Provider [phone] Joselyn Chance RN Unavailable Unavail able Nuria Gonzalez BA, COS Unavailable Unavailable Reason for Referral * Consultation (Routine) - Closed Specialty Diagnoses / Procedures Referred By Contalissa t Referred To Contact Primary Care Diagnoses Enrolled in chronic care management Cristiane Shirley MD Phone: tel: fax: [facility] [employer] [address] [place] [address] Phone: tel: fax: Referral ID Status Reason Start Date Expiration Date Visits Re quested Visits Authorized [id number] Closed 02/07/2021 02/07/2022 99 99 Question Answer Reason for Referral Transportation Reason for Visit * Reason Comments CM- Telephonic Outreach CM- Longitudinal Continued Acp Conversation Declined CM-SDOH Encounter Details Date Type Department Care Team (Late st Contact Info) Description 02/07/2021 9:15 AM EDT Telemedicine [facility] [address] [place] [address] Joselyn Chance RN Enrolled in chronic care management (Primary Dx) Social History Tobacco Use Types [...] Date Recorded PHQ-2 Total Score 0 09/29/2020 [facility] of Occupat ional Health - Occupational Stress [...] Progress Notes * Joselyn Chance RN - 02/07/2021 9:15 AM EDT - Date of Longitudinal Care Management initiated: 05/05/20 - Reason for visit: Follow up on progress and assist with resources. - Visit Type: Telephonic Assessment: - Symptoms: Patient reports she has been feeling short of breath and has Asthma. Patient does not indicate that this symptom has worsened. Appointment was offered and patient reports she will need a Friday appointment as her son provides transportation. Appointment has been scheduled for 02/24/21 at 10:45 with and RN CC has reviewed when to be evaluated in the ER. RN CC offered a referral for possible assistance with transportation and patient is agreeable. CareManagement referral has been submitted. Patient reports she has a nebulizer machine,however needs a new administration set and needs instruction on use. RN CC will send information about use of this device. Patient reports she obtained hernebulizer from [email or web address] and was encouraged to contact them regarding new administration set for her machine. Patient reports her insurance had covered in the past. RN CC advised patient to update office if she is unable to obtain from [email or web address]. Patient also complains of acid reflux and having spasms in her legs. Patient plans to discuss with PCP at follow up visit. - Tobacco use: o Reviewed; patient reports no change in smoking history Health Maintenance: ??? Care gaps addressed today include: RN CC advised patient she is due for Hgb A1c and Lipids. Director Of Flight Operations advised that patient will need to fast prior to lipids being drawn at visit on 02/24. RN CC explained patient should have no food or drink after midnight unless it is water or black coffee. Medications: - Patient reports her Oxybutinin is $50.00 a month. RN CC will research to determine if there is any assistance options for this medication. Education/handouts: Education: o Educated patient and on Advanced Care Planning resources and this has been declined at this time. Patient's reports they have discussed, however are not ready to move forward at this time. Patient had also inquired about obtaining grab bars for the shower. RN CC explained that insurance does not cover this type of DME. The household income is around $680.00 for patient and $1490 for spouse. This exceeds the income limit for the [employer] program. RN CC will update patient and if additional resources become available. Handouts: o How to use a nebulizer. RN CC will mail to patient. Goals: Goals Addressed This Visit's Progress ??? Patient will obtain new administration set for nebulizer so this DME can be utilized. ??? Patients abdominal discomfort will improve or resolve by next follow up call from RN CC. On track ??? Stay Tobacco Free On track Next Steps: - Director Of Flight Operations contact information given / reviewed - Reviewed when to call PCP office, urgent care, or 911 - Patient will follow up with care coordination on 03/09/21 at 10:15 via Telephone Visit. Notes: - Lifestyle assessment reviewed and updated. * Joselyn Chance RN - 02/07/2021 9:15 AM EDT RN CC contacted [facility] regarding the Oxybutynin and they do have this medication on formulary. RN CC contacted patient and spoke with Janey regarding referral to [facility] and Janey reports they are established with [facility] already. Janey reports patient does not receive this particular medication from [facility]. RN CC will request PCPsend a prescription. documented in this encounter Miscellaneous Notes * ACP (Advance Care Planning) - Joselyn Chance RN - 02/07/2021 9:15 AM EDT Offered to discuss goals and values for patient's healthcare if patient is no longer able to speak for themselves. Patient declined Advance Care Planning conversation at this time. Patient and her have had discussions about advanced care planning and are not ready to proceed further at this time. Patient and are agreeable to contact RN CC when ready to proceed. documented in this encounter Plan of Treatment Upcoming Encounters Date Type Department Care Team (Late st Contact Info) Description 07/29/2024 9:00 AM EST Appointment [facility] [address] [place] [address] Jomar Kim MD [address] [place] [address] Scheduled Referrals Name Type Priority Associated Diagnoses Order Schedule AMB REFERRAL TO CARE MANAGEMENT Outpatient Referral Routine Enrolled in chronic care management Ordered: 02/07/2021 documented as of this encounter Goals Goal [...] neuropathy weekly. ?? Refer to PCP and/or Chemical Tank Worker, Vascular Specialist as indicated. ?? Monitor [...] as of this encounter Visit Diagnoses Diagnosis Enrolled in chronic care management- Primary documented in this encounter Care Teams Sealer Dry Cell Relationship Specialty Start Date End Date Cristiane Shirley MD [address] [place], [place] [id number] PCP - General Family Medicine 08/20/18 12/29/23 Garett Holt MD Internal Medicine-Gastroentero logy 12/22/12 Ruiz Stokes MD [address] [place], [place] [id number] Internal Medicine-Cardiovascul ar Disease 07/25/14 Yenny Schwab MD 651 [facility] 19 [place] [address] Internal Medicine-Rheumatology 12/11/16 Joselyn Chance, RN Director Of Flight Operations Registered Nurse 05/05/20 03/08/21 Nuria Gonzalez BA, COS Case Utility Hand 02/08/21 02/27/21 documented as of this encounter
--- OUTSIDE RECORDS SUMMARY | 2024-07-22 16:04 | XMS_ITS | Encounter Summary ---
Author Organization [place] [address] Care Team Providers Care Rock Crusher Name Role Phone Garett Holt MD Unavailable [phone] Ruiz Stokes MD Unavailable [phone] Yenny Schwab MD Unavailable [phone] Cristiane Shirley MD Primary Care Provider Joselyn Chance RN Unavailable Unavail able Reason for Visit * Reason Comments Medication Refill Encounter Details Date Type Department Care Team (Late st Contact Info) Description 01/01/2021 Refill [facility] [address] [place] [address] Cristiane Shirley MD [address] [place] [address] Medication Refill Social History Tobacco Use Types [...] Filled Start Date End Date lisinopriL (PRINIVIL;ZESTRIL) 20 mg Oral Tablet tabletIndications:E ssential hypertension TAKE 1 TAB BY MOUTH DAILY. 30 Tab 01/02/2021 01/08/2021 amLODIPine (NORVASC) 10 mg Oral TabletIndications:E ssential hypertension TAKE 1 TAB BY MOUTH DAILY. 30 Tab 01/02/2021 01/08/2021 metFORMIN (GLUCOPHAGE) 500 mg Oral Tablet TAKE 1 TAB BY MOUTH DAILY (WITH BREAKFAST). 30 Tab 01/02/2021 01/08/2021 documented in this encounter Miscellaneous Notes * Telephone Encounter - Aura Arnold CPhT - 01/02/2021 9:47 AM EDT metFORMIN- Medication Refill Protocol failed due to need for appointment and labs/vitals. golf cart repairer Reason: Past follow-up date noted by protocol. Protocol required follow-up within 6 months. Last assessed at visit 05/25/20. There is no appointment scheduled. golf cart repairer Reason: A1c not on file within 6 months, Lipid panel not on file within 12 months and Serum creatinine not on file within 6 months golf cart repairer Action: Defer to office. Patient needs labwork or vitals completed. Routed to office staff for outreach for appointment scheduling and labs/vitals. amLODIPine- Medication Refill Protocol failed due to need for appointment and labs/vitals. golf cart repairer Reason: Past follow-up date noted by protocol. Protocol required follow-up within 6 months. Last assessed at visit 05/25/20. There is no appointment scheduled. golf cart repairer Reason: Serum creatinine not on file within 6 months golf cart repairer Action: Defer to office. Patient needs labwork or vitals completed. Routed to office staff for outreach for appointment scheduling and labs/vitals. lisinopriL- Medication Refill Protocol failed due to need for appointment and labs/vitals. golf cart repairer Reason: Past follow-up date noted by protocol. Protocol required follow-up within 6 months. Last assessed at visit 05/25/20. There is no appointment scheduled. golf cart repairer Reason: Serum creatinine not on file within 6 months golf cart repairer Action: Defer to office. Patient needs labwork or vitals completed. Routed to office staff for outreach for appointment scheduling and labs/vitals. documented in this encounter Plan of Treatment Upcoming Encounters Date Type Department Care Team (Late st Contact Info) Description 07/29/2024 9:00 AM EST Appointment [facility] [address] [place] [id number] Jomar Kim MD [address] [place] [address] documented as of this encounter Goals Goal Patient Goal Type Associated Problems Recent Progress Patient-Stated? Author Blood Pressure < 140/90 Blood Pressure 110/72(04/09 2:44 PM EDT) No Rachel Rogers, RMA BMI (Calculated) < 30 General 50.9(2023 2:44 PM EDT) No Rachel Rogers RMA Eat better, exercise, reach an ideal body weight General No Ni Clinton, pediatric physiatrist Healing General On track(12/03 9:18 AM EDT) [...] neuropathy weekly. ?? Refer to PCP and/or Stocklayer, Vascular Specialist as indicated. ?? Monitor patient [...] 1 TAB BY MOUTH DAILY (WITH BREAKFAST). 10/24/2020 01/02/2021 amLODIPine (NORVASC) 10 mg Oral TabletIndications:Essentia l hypertension TAKE 1 TAB BY MOUTH DAILY. 10/24/2020 01/02/2021 lisinopriL (PRINIVIL;ZESTRIL) 20 mg Oral Tablet tabletIndications:Essentia l hypertension TAKE 1 TAB BY MOUTH DAILY. 10/24/2020 01/02/2021 documented as of this encounter Care Teams Rock Crusher Relationship Specialty Start Date End Date Cristiane Shirley MD [address] [place] [address] PCP - General Family Medicine 08/20/18 12/29/23 Garett Holt MD Internal Medicine-Gastroenterolog y 12/22/12 Ruiz Stokes MD [address] [place] [address] Internal Medicine-Cardiovascular Disease 07/25/14 Yenny Schwab MD 651 [facility] Building [address] [place] [id number] Internal Medicine-Rheumatology 12/11/16 Joselyn Chance, RN Stone Gang Sawyer Registered Nurse 05/05/20 03/08/21 documented as of this encounter
--- OUTSIDE RECORDS SUMMARY | 2024-07-22 16:04 | XMS_ITS | Encounter Summary ---
Author Organization [place] [address] Care Team Providers Care Women'S Lacrosse Coach Name Role Phone Garett Holt MD Unavailable [phone] Ruiz Stokes MD Unavailable [phone] Yenny Schwab MD Unavailable [phone] Cristiane Shirley MD Primary Care Provider [phone] Joselyn Chance RN Unavailable Unavail able Reason for Visit * Reason Comments Medication Refill Encounter Details Date Type Department Care Team (Late st Contact Info) Description 11/18/2020 Refill [facility] 100 [place] [address] Cristiane Shirley MD [address] [place] [address] Medication Refill Social History Tobacco Use Types [...] Date fluticasone propionate (FLONASE) 50 mcg/actuation Nasl [place], SuspensionIndicati ons:ETD (Eustachian tube dysfunction), right Use 1 spray(s) in each nostril once daily 16 g 11/20/2020 documented in this encounter Plan of Treatment Upcoming Encounters Date Type Department Care Team (Late st Contact Info) Description 07/29/2024 9:00 AM EST Appointment [facility] [address] [place] [address] Jomar Kim MD [address] [place] [address] documented as of this encounter Goals Goal Patient Goal Type Associated Problems Recent Progress Patient-Stated? Author Blood Pressure < 140/90 Blood Pressure 110/72(04/09 2:44 PM EDT) No Rachel Rogers RMA BMI (Calculated) < 30 General 50.9(2023 2:44 PM EDT) No Rachel Rogers RMA Eat better, exercise, reach an ideal body weight General No Ni Clinton, monogram technician Healing General On track(12/03 9:18 AM [...] neuropathy weekly. ?? Refer to PCP and/or Community Support Associate, Vascular Specialist as indicated. ?? Monitor patient [...] 5.6( 024 3:04 PM EST) Rachel Regan, [facility] documented as of this encounter Visit Diagnoses Diagnosis ETD (Eustachian tube dysfunction), right documented in this encounter Discontinued Medications Medication Sig Discontinue Reason Start Date End Da te fluticasone propionate (FLONASE) 50 mcg/actuation Nasl [place], SuspensionIndications:ET D (Eustachian tube dysfunction), right Use 1 spray(s) in each nostril once daily 01/05/2020 11/20/2020 documented as of this encounter Care Teams Women'S Lacrosse Coach Relationship Specialty Start Date End Date Cristiane Shirley MD [address] [place] [address] PCP - General Family Medicine 08/20/18 12/29/23 Garett Holt MD Internal Medicine-Gastroenterolog y 12/22/12 Ruiz Stokes MD [address] [place] [address] Internal Medicine-Cardiovascular Disease 07/25/14 Yenny Schwab MD [address] [address] Internal Medicine-Rheumatology 12/11/16 Joselyn Chance, RN Associate Professor Of Anthropology Registered Nurse 05/05/20 03/08/21 documented as of this encounter
--- OUTSIDE RECORDS SUMMARY | 2024-07-22 16:04 | XMS_ITS | Encounter Summary ---
Author Organization [facility] [address] Care Team Providers Care Pile Driver Operator Name Role Phone Garett Holt MD Unavailable [phone] Ruiz Stokes MD Unavailable [phone] Yenny Schwab MD Unavailable [phone] Cristiane Shirley MD Primary Care Provider [phone] Joselyn Chance RN Unavailable Unavail able Encounter Details Date Type Department Care Team (Latest Contact Info) Description 02/07/2021 Travel Social History Tobacco Use Types Packs/Day [...] Date Recorded PHQ-2 Total Score 0 09/29/2020 [facility] of Occupat ional Health - Occupational Stress [...] Assessment Author Yes 09/29/2020 1:07 PM EST Costa Jessee Bella MA * Because of a physical, [...] 9:00 AM EST Appointment [facility] [address] [place] [address] Jomar Kim MD [address] [place] [address] documented as of this encounter Goals Goal Patient Goal Type Associated Problems Recent Progress Patient-Stated? Author Blood Pressure < 140/90 Blood Pressure 110/72(04/09 2:44 PM EDT) No Rachel Rogers RMA BMI (Calculated) < 30 General 50.9(2023 2:44 PM EDT) No Rachel Rogers RMA Eat better, exercise, reach an ideal body weight General No Ni Clinton, patient intake coordinator Healing General On track(12/03 9:18 AM EDT) [...] neuropathy weekly. ?? Refer to PCP and/or Rn Transfer, Vascular Specialist as indicated. ?? Monitor patient [...] on filedocumented in this encounter Care Teams Pile Driver Operator Relationship Specialty Start Date End Date Cristiane Shirley MD [address] [place] [address] PCP - General Family Medicine 08/20/18 12/29/23 Garett Holt MD Internal Medicine-Gastroenterolog y 12/22/12 Ruiz Stokes MD [address] [place] [address] Internal Medicine-Cardiovascular Disease 07/25/14 Yenny Schwab MD 651 [facility] 19 [place], [place] [id number] Internal Medicine-Rheumatology 12/11/16 Joselyn Chance RN Die Maintenance Technician Registered Nurse 05/05/20 03/08/21 documented as of this encounter
--- OUTSIDE RECORDS SUMMARY | 2024-07-22 16:04 | XMS_ITS | Encounter Summary ---
Author Organization [place] [address] Care Team Providers Care Nuclear Equipment Test Engineer Name Role Phone Garett Holt MD Unavailable [phone] Ruiz Stokes MD Unavailable [phone] Yenny Schwab MD Unavailable [phone] Cristiane Shirley MD Primary Care Provider Joselyn Chance RN Unavailable Unavail able Reason for Visit * Reason Comments Medication Refill Encounter Details Date Type Department Care Team (Late st Contact Info) Description 01/14/2021 Refill [facility] 100 [place] [address] Cristiane Shirley MD [address] [place] [address] Medication Refill Social History Tobacco Use Types [...] Date fluticasone propionate (FLONASE) 50 mcg/actuation Nasl [place], SuspensionIndicati ons:ETD (Eustachian tube dysfunction), right Use 1 spray(s) in each nostril once daily 16 g 01/15/2021 docusate sodium (COLACE) 100 mg Oral Capsule Take 1 capsule by mouth twice daily 60 Cap 01/15/2021 2 documented in this encounter Plan of Treatment Upcoming Encounters Date Type Department Care Team (Late st Contact Info) Description 07/29/2024 9:00 AM EST Appointment [facility] [address] [place] [id number] Jomar Kim MD [address] [place] [address] documented as of this encounter Goals [...] neuropathy weekly. ?? Refer to PCP and/or Collar Trimmer, Vascular Specialist as indicated. ?? Monitor [...] 024 3:04 PM EST) No Rachel Rogers RMLeigh documented as of this encounter Visit Diagnoses Diagnosis ETD (Eustachian tube dysfunction), right documented in this encounter Discontinued Medications Medication Sig Discontinue Reason Start Date End Da te fluticasone propionate (FLONASE) 50 mcg/actuation Nasl [place], SuspensionIndications:ET D (Eustachian tube dysfunction), right Use 1 spray(s) in each nostril once daily 11/20/2020 01/15/2021 DOK 100 mg Oral Capsule Take 1 capsule by mouth twice daily 12/18/2020 01/15/2021 documented as of this encounter Care Teams Nuclear Equipment Test Engineer Relationship Specialty Start Date End Date Cristiane Shirley MD [address] [place] [address] PCP - General Family Medicine 08/20/18 12/29/23 Garett Holt MD Internal Medicine-Gastroenterolog y 12/22/12 Ruiz Stokes MD [address] [place] [address] Internal Medicine-Cardiovascular Disease 07/25/14 Yenny Schwab MD [address] [address] Internal Medicine-Rheumatology 12/11/16 Joselyn Chance RN Combination Window Installer Registered Nurse 05/05/20 03/08/21 documented as of this encounter
--- OUTSIDE RECORDS SUMMARY | 2024-07-22 16:04 | XMS_ITS | Encounter Summary ---
Author Organization [place] [address] Care Team Providers Care Electron Beam Welder Setter Name Role Phone Garett Holt MD Unavailable [phone] Ruiz Stokes MD Unavailable [phone] Yenny Schwab MD Unavailable [phone] Cristiane Shirley MD Primary Care Provider Joselyn Chance RN Unavailable Unavail able Reason for Visit * Reason Onset Date Comments Medication Refill 02/04/2021 Encounter Details Date Type Department Care Team (Late st Contact Info) Description 02/04/2021 Refill [facility] [address] [place] [address] Cristiane Shirley MD [address] [place] [address] Medication Refill Social History Tobacco Use Types [...] PHQ-2 Total Score 0 09/29/2020 [facility] of Occupat ional [...] mouth daily (with breakfast). 90 Tab 02/06/2021 03/27/2021 fUROsemide (LASIX) 40 mg Oral TabletIndications:L ower extremity edema,Venous stasis dermatitis of left lower extremity One tab daily and may take an extra if needed. 60 Tab 6 02/06/2021 11/24/2022 documented in this encounter Miscellaneous Notes * Telephone Encounter - Lisbet Cesar CPhT - 02/06/2021 1:47 PM EDT Metforimin- Medication Refill Protocol failed due to labs or vitals. fish machine feeder Reason: A1c not on file within 6 months, Lipid panel not on file within 12 months and Serum creatinine not on file within 6 months fish machine feeder Action: Defer to office. Patient needs labwork or vitals completed. Routed to office staff for outreach. Furosemide- Medication Refill Protocol failed due to labs or vitals. fish machine feeder Reason: Serum creatinine not on file within 6 months and Serum sodium not on file within 6 months fish machine feeder Action: Defer to office. Patient needs labwork or vitals completed. Routed to office staff for outreach. documented in this encounter Plan of Treatment Upcoming Encounters Date Type Department Care Team (Late st Contact Info) Description 07/29/2024 9:00 AM EST Appointment [facility] [address] [place], [place] [id number] Jomar Kim MD [address] [place] [address] documented as of this encounter [...] neuropathy weekly. ?? Refer to PCP and/or Sap Bi Developer, Vascular Specialist as indicated. ?? Monitor patient [...] may take an extra if needed. Reorder 09/29/2020 02/04/2021 metFORMIN (GLUCOPHAGE) 500 mg Oral Tablet Take 1 Tab by mouth daily (with breakfast). Reorder 01/11/2021 02/04/2021 documented as of this encounter Care Teams Electron Beam Welder Setter Relationship Specialty Start Date End Date Cristiane Shirley MD [address] [place], [place] [id number] PCP - General Family Medicine 08/20/18 12/29/23 Garett Holt MD Internal Medicine-Gastroenterolog y 12/22/12 Ruiz Stokes MD [address] [place] [address] Internal Medicine-Cardiovascular Disease 07/25/14 Yenny Schwab MD [address] [id number] Internal Medicine-Rheumatology 12/11/16 Joselyn Chance RN Gettering Operator Registered Nurse 05/05/20 03/08/21 documented as of this encounter
--- OUTSIDE RECORDS SUMMARY | 2024-07-22 16:04 | XMS_ITS | Encounter Summary ---
Author Organization [place] [address] Care Team Providers Care Assistant Attorney General Name Role Phone Garett Holt MD Unavailable [phone] Ruiz Stokes MD Unavailable [phone] Yenny Schwab MD Unavailable [phone] Cristiane Shirley MD Primary Care Provider Joselyn Chance RN Unavailable Unavail able Reason for Visit * Reason Comments Medication Refill Encounter Details Date Type Department Care Team (Late st Contact Info) Description 12/16/2020 Refill SEP [facility] [address] [place] [address] Cristiane Shirley MD [address] [place] [address] Medication Refill Social History Tobacco Use Types [...] Refills Last Filled Start Date End Date DOK 100 mg Oral Capsule Take 1 capsule by mouth twice daily 60 Cap 12/18/2020 documented in this encounter Plan of Treatment Upcoming Encounters Date Type Department Care Team (Late st Contact Info) Description 07/29/2024 9:00 AM EST Appointment [facility] [address] [place] [address] Jomar Kim MD 300 [facility] [place] [address] documented as of this encounter [...] neuropathy weekly. ?? Refer to PCP and/or Disease Intervention Specialist, Vascular Specialist as indicated. ?? Monitor [...] Discontinue Reason Start Date End Da te DOK 100 mg Oral Capsule Take 1 capsule by mouth twice daily 11/13/2020 12/18/2020 documented as of this encounter Care Teams Assistant Attorney General Relationship Specialty Start Date End Date Cristiane Shirley MD [address] [place] [address] PCP - General Family Medicine 08/20/18 12/29/23 Garett Holt MD Internal Medicine-Gastroenterolog y 12/22/12 Ruiz Stokes MD [address] [place], [place] [id number] Internal Medicine-Cardiovascular Disease 07/25/14 Yenny Schwab MD 651 [facility] 19 [place] [address] Internal Medicine-Rheumatology 12/11/16 Joselyn Chance, RN Machine Milker Registered Nurse 05/05/20 03/08/21 documented as of this encounter
--- OUTSIDE RECORDS SUMMARY | 2024-07-22 16:04 | XMS_ITS | Encounter Summary ---
Author Organization [place] [address] Care Team Providers Care Faith Doctor Name Role Phone Garett Holt MD Unavailable [phone] Ruiz Stokes MD Unavailable [phone] Yenny Schwab MD Unavailable [phone] Cristiane Shirley MD Primary Care Provider [phone] Joselyn Chance RN Unavailable Unavail able Nuria Gonzalez BA, COS Unavailable Unavailable Reason for Visit * Reason Onset Date Comments Transportation 02/08/2021 Encounter Details Date Type Department Care Team (Late st Contact Info) Description 02/08/2021 Patient Outreach SEP [facility] [address] [place] [address] Nuria Gonzalez BA, COS Transportation [...] Date Recorded PHQ-2 Total Score 0 09/29/2020 [facility]at [facility] - Occupational Stress Questionnaire Answer Date [...] Progress Notes * Nuria Gonzalez - 02/21/2021 2:49 PM EDT COS received inbound call from Mayelin Barrios with [facility] for [facility]. Mayelin recommended that patient call the intake team and that [facility] can help patient identify any Medicare Advantage plan that has nonemergency transportation as part of the benefit. Mayelin stating not aware of any other re sources in [facility]. Intake team phone number for [facility] is [phone] (for a full benefit screening). * Nuria Gonzalez - 02/08/2021 4:10 PM EDT COS calling to follow up on transportation. Patient lives in [facility]). Patient stating her son helps her get to apts but he is only off once per week. Patient handed phone to . stating patient uses a walker and has a hard time getting in and out of a vehicle. stating he is in a wheelchair and is a and is not able to get any transportation from [facility] because of where he lives. stating they have attempted to get a new insurance plan that has transportation, but they dont have any that comes to where they live. stating family is not eligible for medicaid because they make $20 too much. COS provided with resources and encouraged to call COS if more resources are needed. Transportation Eligibility Date of Evaluation: 02/08/2021 Patient qualifies for the following transportation resources: ??? Public transportation - Federated transportation Outcome: ??? Patient verbalized understanding of next steps for transportation resources. ??? Encouraged patient to call Case Produce Team Member with any additional transportation questions or concerns. ??? Case Produce Team Member will follow-up with patient at a later date. Consent: ??? not indicated - patient does not utilize [facility] aug[place] funded transportation assistance Other resources provided: [facility] - [phone] (to find other local transportation resources and other resources for seniors) [facility] - [phone] (help to find a medicare plan that helps with transportation) documented in this encounter Plan of Treatment Upcoming Encounters Date Type Department Care Team (Late st Contact Info) Description 07/29/2024 9:00 AM EST Appointment [facility] [address] [place] [address] Jomar Kim MD [address] [place] [address] documented as of this encounter Goals Goal Patient Goal Type Associated Problems Recent Progress Patient-Stated? Author Blood Pressure < 140/90 Blood Pressure 110/72(04/09 2:44 PM EDT) No Rachel Rogers RMA BMI (Calculated) < 30 General 50.9(2023 2:44 PM EDT) No Rachel Rogers RMA Eat better, exercise, reach an ideal body weight General No Ni Clinton, tanning wheel operator Healing General On track(12/03 9:18 AM [...] neuropathy weekly. ?? Refer to PCP and/or Water Pumping Station Engineer, Vascular Specialist as indicated. ?? Monitor [...] on filedocumented in this encounter Care Teams Faith Doctor Relationship Specialty Start Date End Date Cristiane Shirley MD [address] [place], [place] [id number] PCP - General Family Medicine 08/20/18 12/29/23 Garett Holt MD Internal Medicine-Gastroentero logy 12/22/12 Ruiz Stokes MD [address] [place], [place] [id number] Internal Medicine-Cardiovascul ar Disease 07/25/14 Yenny Schwab MD [address] [place] [address] Internal Medicine-Rheumatology 12/11/16 Joselyn Chance, RN Permit Specialist Registered Nurse 05/05/20 03/08/21 Nuria Gonzalez, SHANE, COS Case Produce Team Member 02/08/21 02/27/21 documented as of this encounter
--- OUTSIDE RECORDS SUMMARY | 2024-07-22 16:04 | XMS_ITS | Encounter Summary ---
Author Organization [facility] [place] [address] Care Team Providers Care Hat Lacer Name Role Phone Garett Holt MD Unavailable [phone] Ruiz Stokes MD Unavailable [phone] Yenny Schwab MD Unavailable [phone] Cristiane Shirley MD Primary Care Provider [phone] Joselyn Chance RN Unavailable Unavail able Encounter Details Date Type Department Care Team (Latest Contact Info) Description 12/27/2020 Travel Social History Tobacco Use Types Packs/Day [...] EST Appointment [facility] [address] [place] [address] Jomar Kim MD [address] [place] [address] documented as of this encounter [...] neuropathy weekly. ?? Refer to PCP and/or Sports Reporter, Vascular Specialist as indicated. ?? Monitor patient [...] on filedocumented in this encounter Care Teams Hat Lacer Relationship Specialty Start Date End Date Cristiane Shirley MD 100 [place] [address] PCP - General Family Medicine 08/20/18 12/29/23 Garett Holt MD Internal Medicine-Gastroenterolog y 12/22/12 Ruiz Stokes MD [address] [place] [address] Internal Medicine-Cardiovascular Disease 07/25/14 Yenny Schwab MD 651 [facility] Building [address] [place] [address] Internal Medicine-Rheumatology 12/11/16 Joselyn Chance, RN Transportation Lead Registered Nurse 05/05/20 03/08/21 documented as of this encounter
--- OUTSIDE RECORDS SUMMARY | 2024-07-22 16:04 | XMS_ITS | Encounter Summary ---
Author Organization [facility] [place] [address] Care Team Providers Care Contractor Field Hauling Name Role Phone Garett Holt MD Unavailable [phone] Ruiz Stokes MD Unavailable [phone] Yenny Schwab MD Unavailable [phone] Cristiane Shirley MD Primary Care Provider [phone] Joselyn Chance RN Unavailable Unavail able Encounter Details Date Type Department Care Team (Latest Contact Info) Description 09/26/2020 Travel Social History Tobacco Use Types Packs/Day Years Used Date Smoking Tobacco: Former Cigarettes 1.5 12 0 01/24/1972 - 01/24/1984 Smokeless Tobacco: Never Alcohol Use Standard Drinks/Week Comments No 0 (1 standard drink = 0.6 oz pur e alcohol) PHQ-2 Answer Date Recorded PHQ-2 Score 0 01/29/2019 Sexually Active Control Partners Comments Yes Post-menopausal [...] have Coronavirus / COVID-19? No / Unsure 09/26/2020 9:27 AM EST documented as of this encounter Functional Status * Is the person deaf or does he/she have serious difficulty hearing? Answer Date of Assessment Author No 09/14/2019 10:05 AM EST Brynn Morgan RMLeigh * Is the person blind or does he/she have serious difficulty seeing even when wearing glasses? Answer Date of Assessment Author No 09/14/2019 10:05 AM EST Brynn Morgan RMA * Does this person have serious difficulty walking or climbing stairs? Answer Date of Assessment Author No 09/14/2019 10:05 AM EST Brynn Morgan RMA * Does this person have difficulty dressing or bathing? Answer Date of Assessment Author No 09/14/2019 10:05 AM EST Brynn Morgan RMA * Because of a physical, mental or emotional condition, does this person have difficulty doing errands alone such as visiting a doctor's office or shopping? Answer Date of Assessment Author No 09/14/2019 10:05 AM EST Brynn Morgan RMLeigh documented as of this encounter Mental Status * Because of a physical, mental or emotional condition, does this person have serious difficulty concentrating, remembering or making decisions? Answer Entry Date Author No 01/23/2019 9:05 AM EDT Nitin Yousif CMA documented in this encounter Plan of Treatment Upcoming Encounters Date Type Department Care Team (Late st Contact Info) Description 07/29/2024 9:00 AM EST Appointment [facility] [address] [place] [address] Jomar Kim MD 300 [place] [address] documented as of this encounter Goals Goal Patient Goal Type Associated Problems Recent Progress Patient-Stated? Author Blood Pressure < 140/90 Blood Pressure 110/72(04/09 2:44 PM EDT) No Rachel Rogers RMA BMI (Calculated) < 30 General 50.9(2023 2:44 PM EDT) No Orgers, Rachel Liv, RMA Eat better, exercise, reach an ideal [...] neuropathy weekly. ?? Refer to PCP and/or Ruby Engineer, Vascular Specialist as indicated. ?? Monitor [...] on filedocumented in this encounter Care Teams Contractor Field Hauling Relationship Specialty Start Date End Date Cristiane Shirley MD 100 [place] [address] PCP - General Family Medicine 08/20/18 12/29/23 Garett Holt MD Internal Medicine-Gastroenterolog y 12/22/12 Ruiz Stokes MD [address] [place] [id number] Internal Medicine-Cardiovascular Disease 07/25/14 Yenny Schwab MD 651 [facility] Building [address] [place] [address] Internal Medicine-Rheumatology 12/11/16 Joselyn Chance, RN Business Transformation Analyst Registered Nurse 05/05/20 03/08/21 documented as of this encounter
--- OUTSIDE RECORDS SUMMARY | 2024-07-22 16:04 | XMS_ITS | Encounter Summary ---
Author Organization [facility] [place] [address] Care Team Providers Care Internal Controls Specialist Name Role Phone Garett Holt MD Unavailable [phone] Ruiz Stokes MD Unavailable [phone] Yenny Schwab MD Unavailable [phone] Cristiane Shirley MD Primary Care Provider [phone] Joselyn Chance RN Unavailable Unavail able Encounter Details Date Type Department Care Team (Latest Contact Info) Description 09/29/2020 Travel Social History Tobacco Use Types Packs/Day [...] have Coronavirus / COVID-19? No / Unsure 09/29/2020 12:36 PM EST documented as of this encounter Functional [...] 9:00 AM EST Appointment [facility] [address] [place] [address] Jomar Kim MD 300 [place] [address] documented as of this encounter [...] neuropathy weekly. ?? Refer to PCP and/or Team Manager, Vascular Specialist as indicated. ?? Monitor [...] on filedocumented in this encounter Care Teams Internal Controls Specialist Relationship Specialty Start Date End Date Cristiane Shirley MD 100 [place] [address] PCP - General Family Medicine 08/20/18 12/29/23 Garett Holt MD Internal Medicine-Gastroenterolog y 12/22/12 Ruiz Stokes MD [address] [place] [address] Internal Medicine-Cardiovascular Disease 07/25/14 Yenny Schwab MD [address] [address] Internal Medicine-Rheumatology 12/11/16 Joselyn Chance, RN Sock Lining Examiner Registered Nurse 05/05/20 03/08/21 documented as of this encounter
--- OUTSIDE RECORDS SUMMARY | 2024-07-22 16:04 | XMS_ITS | Encounter Summary ---
Author Organization [place] [address] Care Team Providers Care Coagulating Bath Operator Name Role Phone Garett Holt MD Unavailable [phone] Ruiz Stokes MD Unavailable [phone] Yenny Schwab MD Unavailable [phone] Cristiane Shirley MD Primary Care Provider [phone] Joselyn Chance RN Unavailable Unavail able Reason for Visit * Reason Onset Date Comments CM- Longitudinal Continued 10/27/2020 My art Message Sent Encounter Details Date Type Department Care Team (Late st Contact Info) Description 10/27/2020 Patient Outreach SEP [facility] 100 [place] [address] Joselyn Chance, RN CM- Longitudinal Continued (My Chart Message Sent) Social History Tobacco Use Types Packs/Day Years [...] Progress Notes * Joselyn Chance RN - 10/27/2020 4:32 PM EST My Chart message sent to follow up on patient progress. RN CC will attempt follow up call if no response received from patient. documented in this encounter Plan of Treatment Upcoming Encounters Date Type Department Care Team (Late st Contact Info) Description 07/29/2024 9:00 AM EST Appointment [facility] [address] [place] [id number] Jomar Kim MD 300 [facility] [place] [address] documented as of this encounter Goals [...] neuropathy weekly. ?? Refer to PCP and/or Automatic Lathe Tender, Vascular Specialist as indicated. ?? Monitor [...] on filedocumented in this encounter Care Teams Coagulating Bath Operator Relationship Specialty Start Date End Date Cristiane Shirley MD 100 [place] [address] PCP - General Family Medicine 08/20/18 12/29/23 Garett Holt MD Internal Medicine-Gastroenterolog y 12/22/12 Ruiz Stokes MD [address] [place] [address] Internal Medicine-Cardiovascular Disease 07/25/14 Yenny Schwab MD 651 [facility] Building [address] [place] [address] Internal Medicine-Rheumatology 12/11/16 Joselyn Chance, RN Hand Buffing Wheel Former Registered Nurse 05/05/20 03/08/21 documented as of this encounter
--- OUTSIDE RECORDS SUMMARY | 2024-07-22 16:04 | XMS_ITS | Encounter Summary ---
Author Organization [place] [address] Care Team Providers Care Insurance Representative Name Role Phone Garett Holt MD Unavailable [phone] Ruiz Stokes MD Unavailable [phone] Yenny Schwab MD Unavailable [phone] Cristiane Shirley MD Primary Care Provider Joselyn Chance RN Unavailable Unavail able Reason for Visit * Reason Comments Medication Refill Encounter Details Date Type Department Care Team (Late st Contact Info) Description 01/19/2021 Refill SEP [facility] 100 [place] [address] Cristiane Shirley MD 100 [place] [address] Medication Refill Social History Tobacco Use Types [...] End Date cephALEXin (KEFLEX) 500 mg Oral Capsule TAKE 1 CAPSULE BY MOUTH EVERY 8 HOURS FOR 10 DAYS 30 Cap 01/19/2021 1 documented in this encounter Plan of Treatment Upcoming Encounters Date Type Department Care Team (Late st Contact Info) Description 07/29/2024 9:00 AM EST Appointment [facility] [address] [place] [address] Jomar Kim MD 300 [place] [address] documented as of this encounter Goals Goal [...] neuropathy weekly. ?? Refer to PCP and/or Cupola Charger Insulation, Vascular Specialist as indicated. ?? Monitor patient [...] Discontinue Reason Start Date End Da te cephALEXin (KEFLEX) 500 mg Oral Capsule Take 1 Cap by mouth every 8 hours for 10 days. 12/27/2020 01/19/2021 documented as of this encounter Care Teams Insurance Representative Relationship Specialty Start Date End Date Cristiane Shirley MD [address] [place] [address] PCP - General Family Medicine 08/20/18 12/29/23 Garett Holt MD Internal Medicine-Gastroenterolog y 12/22/12 Ruiz Stokes MD [address] [place] [address] Internal Medicine-Cardiovascular Disease 07/25/14 Yenny Schwab MD [address] [address] Internal Medicine-Rheumatology 12/11/16 Joselyn Chance, RN Injection Mold Tooling Technician Registered Nurse 05/05/20 03/08/21 documented as of this encounter
--- OUTSIDE RECORDS SUMMARY | 2024-07-22 16:04 | XMS_ITS | Encounter Summary ---
Author Organization [place] [address] Care Team Providers Care Revit Drafter Name Role Phone Garett Holt MD Unavailable [phone] Ruiz Stokes MD Unavailable [phone] Yenny Schwab MD Unavailable [phone] Cristiane Shirley MD Primary Care Provider [phone] Joselyn Chance RN Unavailable Unavail able Nuria Gonzalez BA, COS Unavailable Unavailable Reason for Visit * Reason Onset Date Comments Other 02/16/2021 medical release Encounter Details Date Type Department Care Team (Late st Contact Info) Description 02/16/2021 Telephone SEP [facility]ro[facility]ne[facility] [address] [address] Zahraa Nguyen MA Other (medical release) Social History Tobacco Use Types Packs/Day Years [...] Date Recorded PHQ-2 Total Score 0 09/29/2020 [facility] of Occupat ional Health - Occupational Stress [...] Jessee Parekh MA documented in this encounter Miscellaneous Notes * Telephone Encounter - Zahraa Nguyen MA - 02/16/2021 10:20 AM EDT I received a phone call from [employer] regarding releasing the patients records, I informed the company the patient is going to have to sign a medical release form and I will fax them all over. FAX: [phone] I called patient, her answered per [facility] I asked him if they knew about [employer] requesting medical records, he stated yes it is regarding a lawsuit with powder medication? I informed patient's I will mail the medical release form to him and patient to have it filled out thatway I can fax over all her records with the correct documentation. Patient verbalized understanding. documented in this encounter Plan of Treatment Upcoming Encounters Date Type Department Care Team (Late st Contact Info) Description 07/29/2024 9:00 AM EST Appointment [facility] [address] [place] [address] Jomar Kim MD [address] [place] [address] documented as of this encounter [...] neuropathy weekly. ?? Refer to PCP and/or Production Control Specialist, Vascular Specialist as indicated. ?? Monitor [...] on filedocumented in this encounter Care Teams Revit Drafter Relationship Specialty Start Date End Date Cristiane Shirley MD 100 [place], [place] [id number] PCP - General Family Medicine 08/20/18 12/29/23 Garett Holt MD Internal Medicine-Gastroentero logy 12/22/12 Ruiz Stokes MD [address] [place], [place] [id number] Internal Medicine-Cardiovascul ar Disease 07/25/14 Yenny Schwab MD 651 [facility] Building [address] [place] [address] Internal Medicine-Rheumatology 12/11/16 Joselyn Chance, RN Sales Service Manager Registered Nurse 05/05/20 03/08/21 Nuria Gonzalez BA, COS Case Building And Construction Manager 02/08/21 02/27/21 documented as of this encounter
--- OUTSIDE RECORDS SUMMARY | 2024-07-22 16:04 | XMS_ITS | Encounter Summary ---
Author Organization [place] [address] Care Team Providers Care Filling Hand Name Role Phone Garett Holt MD Unavailable [phone] Ruiz Stokes MD Unavailable [phone] Yenny Schwab MD Unavailable [phone] Cristiane Shirley MD Primary Care Provider Joselyn Chance RN Unavailable Unavail able Reason for Visit * Reason Onset Date Comments Medication Refill 01/19/2021 Encounter Details Date Type Department Care Team (Late st Contact Info) Description 01/19/2021 Refill SEP [facility] 100 [place] [address] Cristiane Shirley MD 100 [place] [address] Medication Refill Social History Tobacco Use Types [...] EST Appointment [facility] [address] [place] [address] Jomar Kim MD 300 [place] [address] documented as of this encounter [...] neuropathy weekly. ?? Refer to PCP and/or Architectural Sales Consultant, Vascular Specialist as indicated. ?? Monitor [...] on filedocumented in this encounter Care Teams Filling Hand Relationship Specialty Start Date End Date Cristiane Shirley MD 100 [place], [place] [phone] PCP - General Family Medicine 08/20/18 12/29/23 Garett Holt MD Internal Medicine-Gastroenterolog y 12/22/12 Ruiz Stokes MD [address] [place], [place] [id number] Internal Medicine-Cardiovascular Disease 07/25/14 Yenny Schwab MD 651 [facility] 19 [place] [address] Internal Medicine-Rheumatology 12/11/16 Joselyn Chance, RN Foley Artist Registered Nurse 05/05/20 03/08/21 documented as of this encounter
--- OUTSIDE RECORDS SUMMARY | 2024-07-22 16:04 | XMS_ITS | Encounter Summary ---
Author Organization [place] [address] Care Team Providers Care Distillery Worker Name Role Phone Garett Holt MD Unavailable [phone] Ruiz Stoeks MD Unavailable [phone] Yneny Schwab MD Unavailable [phone] Cristiane Shirley MD Primary Care Provider [phone] Joselyn Chance RN Unavailable Unavail able Reason for Visit * Reason Onset Date Comments CM- Telephonic Outreach 09/26/2020 CM- Longitudinal Continued 09/26/2020 Encounter Details Date Type Department Care Team (Late st Contact Info) Description 09/26/2020 Patient Outreach [facility] [address] [place] [address] Joselyn Chance RN CM- Telephonic Outreach; CM- Longitudinal Continued Social History Tobacco Use Types Packs/Day Years [...] 10:05 AM EST Brynn Morgan RMA * Is the person blind or does [...] 09/14/2019 10:05 AM EST Brynn Morgan RMA documented as of this encounter Mental Status * Because of a physical, mental or emotional condition, does this person have serious difficulty concentrating, remembering or making decisions? Answer Entry Date Author No 01/23/2019 9:05 AM RINAT Nitin Yousif CMA documented in this encounter Progress Notes * Joselyn Chance RN - 09/26/2020 9:38 AM EST - Reason for follow up call: Follow up on status of abdominal discomfort. Assessment: - Patient symptoms/concerns: o Patient reports she continues to have abdominal discomfort and will be following up with on 10/05/20. Chart review shows patient completed a visit with on 09/06/20 and this noted the following information: Epigastric pain Her CT from May does not definitively demonstrate a recurrence of hernia but I am suspicious there may be one on my exam today. If she does having ongoing pain by next follow-up then we will obtain repeat CT and discuss possible surgery. F/u in 2-3 weeks. Patient denies having constipation, diarrhea, bleeding in bowels or vomiting. Patient reports she does have nausea and has chest discomfort in addition to abdominal pain. Patient also reports having difficulty swallowing at times. Patient reports she would like to follow up with as her left ankle is swollen and black around the ankle and its been draining. Appointment has been schedule for Friday09/29/20 at 1:30. - Tobacco use: o Reviewed; patient reports no change in smoking history. Impactable barriers: - Patient needs assistance with: - Medication cost Patient reports the cost of her Oxybutynin increased and she could not afford the 90 day supply. Patient reports she obtained the 30 day supply for $46.00 instead. RN CC checked [facility] and unable to locate coupon for patients current dosage to reduce cost. No patient assistance available. Only option is RX Outreach program, which does not obtain medication forfree. Medications: - Patient declines to review medications at this time. - Patient denies any questions or additional concerns related to medications at this time. Education/handouts: - Educated patient on when to be evaluated in the ER: ?? Chest pain, difficulty breathing, palpitations, develops symptoms of stroke (slurred speech, onesided weakness, facial drooping, etc..) Chart review shows patient was last seen by GI on 07/18/20 and was advised to return to office in 3months. Patient does not have an appointment scheduled at this time and has been encouraged to contact GI to arrange. - MyChart already active and access confirmed with patient. Goals: Goals Addressed This Visit's Progress ??? Patients abdominal discomfort will improve or resolve by next follow up call from MATT RASHID. Next Steps: - Wax Specialist contact information given / reviewed - Reviewed when to call PCP office, urgent care, or 911 - Wax Specialist will continue to care manage patient documented in this encounter Plan of Treatment Upcoming Encounters Date Type Department Care Team (Late st Contact Info) Description 07/29/2024 9:00 AM EST Appointment [facility] [address] [place] [address] Jomar Kim MD [address] [place] [address] documented as of this [...] weekly. ?? Refer to PCP and/or Correctional Officer Captain, Vascular Specialist as indicated. ?? Monitor [...] on filedocumented in this encounter Care Teams Distillery Worker Relationship Specialty Start Date End Date Cristiane Shirley MD [address] [place] [address] PCP - General Family Medicine 08/20/18 12/29/23 Garett Holt MD Internal Medicine-Gastroenterolog y 12/22/12 Ruiz Stokes MD [address] [place] [address] Internal Medicine-Cardiovascular Disease 07/25/14 Yenny Schwab MD [address] [facility] Building [address] [place] [address] Internal Medicine-Rheumatology 12/11/16 Joselyn Chance, RN Wax Specialist Registered Nurse 05/05/20 03/08/21 documented as of this encounter
--- OUTSIDE RECORDS SUMMARY | 2024-07-22 16:04 | XMS_ITS | Encounter Summary ---
Author Organization [place] [address] Care Team Providers Care Dress Shoe Inspector Name Role Phone Garett Holt MD Unavailable [phone] Ruiz Stokes MD Unavailable [phone] Yenny Schwab MD Unavailable [phone] Cristiane Shirley MD Primary Care Provider [phone] Joselyn Chance RN Unavailable Unavail able Reason for Visit * Reason Onset Date Comments Medication Refill 12/15/2020 oxybutynin (DI TROPAN-XL) 10 mg Oral Tablet Extended Rel 24 hr10 mg, 2 TIMES DAILY Encounter Details Date Type Department Care Team (Late st Contact Info) Description 12/15/2020 Refill [facility] [address] [place] [address] Cristiane Shirley MD [address] [place] [address] Medication Refill (oxybutynin (DITROPAN-XL) 10 mg Oral Tablet Extended Rel 24 hr10 mg, 2 TIMES DAILY) Social History Tobacco Use Types Packs/Day Years [...] by mouth 2 times daily. 180 Tab 12/15/2020 02/08/2021 documented in this encounter Miscellaneous Notes * Telephone Encounter - Katherine Dawson - 12/15/2020 1:20 PM EDT Medication Refill Who is requesting the refill: Other Medication(s)Name/Dosage/Frequency: oxybutynin (DITROPAN-XL) 10 mg Oral Tablet Extended Rel 24 hr 10 mg, 2 TIMES DAILY Did patient contact the pharmacy first: Yes, no refills How many days left on hand: None Future appt date w/ prescribing provider: None Pharmacy & Location: [facility] Additional Notes: Please call patient's and advise if able to refill documented in this encounter Plan of Treatment Upcoming Encounters Date Type Department Care Team (Late st Contact Info) Description 07/29/2024 9:00 AM EST Appointment [facility] [address] [place] [address] Jomar Kim MD [address] [place] [address] documented as of this encounter Goals Goal Patient Goal Type Associated Problems Recent Progress Patient-Stated? Author Blood Pressure < 140/90 Blood Pressure 110/72(04/09 2:44 PM EDT) No Rachel Rogers RMA BMI (Calculated) < 30 General 50.9(2023 2:44 PM EDT) No Rachel Rogers RMA Eat better, exercise, reach an ideal body weight General No Ni Clinton, construction carpenters helper Healing General On track(12/03 9:18 AM EDT) [...] neuropathy weekly. ?? Refer to PCP and/or Student Life Coordinator, Vascular Specialist as indicated. ?? Monitor [...] 1 Tab by mouth 2 times daily. Reorder 2020 12/15/2020 documented as of this encounter Care Teams Dress Shoe Inspector Relationship Specialty Start Date End Date Cristiane Shirley MD [address] [place] [address] PCP - General Family Medicine 08/20/18 12/29/23 Garett Holt MD Internal Medicine-Gastroenterolog y 12/22/12 Ruiz Stokes MD [address] [place] [address] Internal Medicine-Cardiovascular Disease 07/25/14 Yenny Schwab MD [address] [place] [address] Internal Medicine-Rheumatology 12/11/16 Joselyn Chance, RN Telex Operator Registered Nurse 05/05/20 03/08/21 documented as of this encounter
--- OUTSIDE RECORDS SUMMARY | 2024-07-22 16:04 | XMS_ITS | Encounter Summary ---
Author Organization [place] [address] Care Team Providers Care Secondary Teacher Name Role Phone Garett Holt MD Unavailable [phone] Ruiz Stokes MD Unavailable [phone] Yenny Schwab MD Unavailable [phone] Cristiane Shirley MD Primary Care Provider Joselyn Chance RN Unavailable Unavail able Reason for Visit * Reason Comments Medication Refill Encounter Details Date Type Department Care Team (Late st Contact Info) Description 11/11/2020 Refill [facility] [address] [place] [address] Cristiane Shirley MD [address] [place] [address] Medication Refill Social History Tobacco Use Types [...] capsule by mouth twice daily 60 Cap 11/13/2020 documented in this encounter Plan of Treatment Upcoming Encounters Date Type Department Care Team (Late st Contact Info) Description 07/29/2024 9:00 AM EST Appointment [facility] [address] [place] [id number] Jomar Kim MD [address] [place] [address] documented as of this encounter Goals Goal Patient Goal Type Associated Problems Recent Progress Patient-Stated? Author Blood Pressure < 140/90 Blood Pressure 110/72(04/09 2:44 PM EDT) No Rachel Rogers, RMA BMI (Calculated) < 30 General 50.9(2023 2:44 PM EDT) No Rachel Rogers, RMA Eat better, exercise, reach an ideal body weight General No Ni Clinton, spout positioner Healing General On track(12/03 9:18 AM EDT) [...] neuropathy weekly. ?? Refer to PCP and/or Dietary Aid, Vascular Specialist as indicated. ?? Monitor patient [...] Discontinue Reason Start Date End Da te STOOL SOFTENER 100 mg Oral Capsule Take 1 capsule by mouth twice daily 10/11/2020 11/13/2020 documented as of this encounter Care Teams Secondary Teacher Relationship Specialty Start Date End Date Cristiane Shirley MD [address] [place] [address] PCP - General Family Medicine 08/20/18 12/29/23 Garett Holt MD Internal Medicine-Gastroenterolog y 12/22/12 Ruiz Stokes MD [address] [place] [address] Internal Medicine-Cardiovascular Disease 07/25/14 Yenny Schwab MD [address] [facility] Building [address] [place] [address] Internal Medicine-Rheumatology 12/11/16 Joselyn Chance, RN High Frequency Mill Operator Registered Nurse 05/05/20 03/08/21 documented as of this encounter
--- OUTSIDE RECORDS SUMMARY | 2024-07-22 16:04 | XMS_ITS | Encounter Summary ---
Author Organization [place] [address] Care Team Providers Care Ems Manager Name Role Phone Garett Holt MD Unavailable [phone] Ruiz Stokes MD Unavailable [phone] Yenny Schwab MD Unavailable [phone] Cristiane Shirley MD Primary Care Provider Joselyn Chance RN Unavailable Unavail able Reason for Visit * Reason Onset Date Comments Medication Refill 01/11/2021 multi Encounter Details Date Type Department Care Team (Late st Contact Info) Description 01/11/2021 Refill [facility] [address] [place] [address] Cristiane Shirley MD [address] [place] [address] Medication Refill (multi) Social History Tobacco Use Types Packs/Day Years [...] 20 mg Oral Tablet tabletIndications:E ssential hypertension Take 1 Tab by mouth daily. 90 Tab 01/11/2021 03/27/2021 metFORMIN (GLUCOPHAGE) 500 mg Oral Tablet Take 1 Tab by mouth daily (with breakfast). 90 Tab 01/11/2021 02/04/2021 amLODIPine (NORVASC) 10 mg Oral TabletIndications:E ssential hypertension Take 1 Tab by mouth daily. 90 Tab 01/11/2021 03/27/2021 documented in this encounter Miscellaneous Notes * Telephone Encounter - Nora Solis - 01/11/2021 11:26 AM EDT Medication Refill Who is requesting the refill: [facility]acy [facility] Medication(s)Name/Dosage/Frequency: metFORMIN (GLUCOPHAGE) 500 mg Oral Tablet lisinopriL (PRINIVIL;ZESTRIL) 20 mg Oral Tablet tablet amLODIPine (NORVASC) 10 mg Oral Tablet Did patient contact the pharmacy first: No How many days left on hand: 0 Future appt date w/ prescribing provider: no Pharmacy & Location: [facility] [place] [address] [address] [facility] [phone] Additional Notes: please make 90 documented in this encounter Plan of Treatment Upcoming Encounters Date Type Department Care Team (Late st Contact Info) Description 07/29/2024 9:00 AM EST Appointment [facility] [address] [facility] [place] [address] Jomar Kim MD [address] [place] [address] documented as of this encounter Goals Goal Patient Goal Type Associated Problems Recent Progress Patient-Stated? Author Blood Pressure < 140/90 Blood Pressure 110/72(04/09 2:44 PM EDT) No Rachel Rogers RMA BMI (Calculated) < 30 General 50.9(2023 2:44 PM EDT) No Rachel Rogers RMA Eat better, exercise, reach an ideal body weight General No Ni Clinton, truss puller helper Healing General On track(12/03 9:18 AM [...] weekly. ?? Refer to PCP and/or Head Of Maintenance, Vascular Specialist as indicated. ?? Monitor [...] Discontinue Reason Start Date End Da te amLODIPine (NORVASC) 10 mg Oral TabletIndications:Essentia l hypertension TAKE 1 TAB BY MOUTH DAILY. Reorder 01/08/2021 01/11/2021 lisinopriL (PRINIVIL;ZESTRIL) 20 mg Oral Tablet tabletIndications:Essentia l hypertension TAKE 1 TAB BY MOUTH DAILY. Reorder 01/08/2021 01/11/2021 metFORMIN (GLUCOPHAGE) 500 mg Oral Tablet TAKE 1 TAB BY MOUTH DAILY (WITH BREAKFAST). Reorder 01/08/2021 01/11/2021 documented as of this encounter Care Teams Ems Manager Relationship Specialty Start Date End Date Cristiane Shirley MD [address] [place] [address] PCP - General Family Medicine 08/20/18 12/29/23 Garett Holt MD Internal Medicine-Gastroenterolog y 12/22/12 Ruiz Stokes MD [address] [place], [place] [address] Internal Medicine-Cardiovascular Disease 07/25/14 Yenny Schwab MD [address] [address] Internal Medicine-Rheumatology 12/11/16 Joselyn Chance, RN Can Repairer Registered Nurse 05/05/20 03/08/21 documented as of this encounter
--- OUTSIDE RECORDS SUMMARY | 2024-07-22 16:04 | XMS_ITS | Encounter Summary ---
Author Organization [place] [address] Care Team Providers Care Enamel Burner Name Role Phone Garett Holt MD Unavailable [phone] Ruiz Stokes MD Unavailable [phone] Yenny Schwab MD Unavailable [phone] Cristiane Shirley MD Primary Care Provider [phone] Joselyn Chance RN Unavailable Unavail able Reason for Visit * Reason Comments Foot Swelling ankle Constipation Chest Pain 5 days ago Encounter Details Date Type Department Care Team (Late st Contact Info) Description 09/29/2020 1:30 PM EST Office Visit [facility] [address] [place] [address] Cristiane Shirley MD [address] [place] [address] Venous stasis dermatitis of left lower extremity (Primary Dx); Lower extremity edema Social History Tobacco Use [...] PM EST documented as of this encounter Last Filed Vital Signs Vital Sign Reading Time Taken Comments Blood Pressure - - Pulse - - Temperature 35.8 ??C (96.4 ??F) 09/29/2020 1:12 PM ES T Respiratory Rate - - Oxygen Saturation - - Inhaled Oxygen Concentration - - Weight 116.1 kg (256 lb) 09/29/2020 1:12 PM EST Height 162.6 cm (5' 4 ) 09/29/2020 1:12 PM EST Body Mass Index 43.94 09/29/2020 1:12 PM EST documented in this encounter Functional [...] Refills Last Filled Start Date End Date polyethylene glycol (GLYCOLAX) 17 gram/dose Oral Powder Take 17 g by mouth daily for 30 days. 510 g 6 09/29/2020 10/29/2020 fUROsemide (LASIX) 40 mg Oral TabletIndications:L ower extremity edema,Venous stasis dermatitis of left lower extremity One tab daily and may take an extra if needed. 60 Tab 6 09/29/2020 02/04/2021 cephALEXin (KEFLEX) 500 mg Oral CapsuleIndications: Lower extremity edema,Venous stasis dermatitis of left lower extremity Take 1 Cap by mouth every 8 hours for 10 days. 30 Cap 09/29/2020 10/09/2020 documented in this encounter Progress Notes * Cristiane Shirley MD - 09/29/2020 1:30 PM EST Vitals: 09/29/20 1312 Temp: 96.4 ??F (35.8 ??C) Weight: 256 lb (116.1 kg) Height: 5' 4 (1.626 m) SUBJECTIVE: Chief Complaint Patient presents with ??? Foot Swelling ankle ??? Constipation ??? Chest Pain 5 days ago HPI: Leg Swelling This is a recurrent problem. The current episode started 1 to 4 weeks ago. The problem occurs constantly. The problem has been gradually worsening. Associated symptoms include chest pain and a rash. Pertinent negatives include no coughing, fatigue or fever. Constipation This is a new problem. The current episode started in the past 7 days. The problem is unchanged. Pertinent negatives include no fever. Chest Pain This is a new problem. The current episode started 5 to 7 days ago. The onset quality is sudden. The problem occurs intermittently. Associated symptoms include arm pain and leg swelling. Pertinent negatives include no coughing, fever or wheezing. Pt Is here today for foot/ankle swelling and drainage, constipation and random chest pains that's been going on for about a week. Review of Systems Constitutional: Negative for fatigue and fever. HENT: Negative. Respiratory: Negative for cough and wheezing. Cardiovascular: Positive for chest pain and leg swelling. Gastrointestinal: Positive for constipation. Genitourinary: Negative. Musculoskeletal: Negative. Skin: Positive for rash. Neurological: Negative. Psychiatric/Behavioral: Negative. OBJECTIVE: Physical Exam Vitals signs and nursing note reviewed. HENT: Head: Normocephalic. Cardiovascular: Rate and Rhythm: Normal rate. Heart sounds: No murmur. Pulmonary: Effort: Pulmonary effort is normal. Breath sounds: No wheezing or rhonchi. Abdominal: Palpations: Abdomen is soft. Tenderness: There is no abdominal tenderness. Musculoskeletal: General: Swelling present. Skin: Findings: Erythema present. Neurological: General: No focal deficit present. Mental Status: She is alert. Psychiatric: Mood and Affect: Mood normal. Assessment Diagnoses and all orders for this visit: Venous stasis dermatitis of left lower extremity - cephALEXin (KEFLEX) 500 mg Oral Capsule; Take 1 Cap by mouth every 8 hours for 10 days. Dispense:30 Cap; Refill: 0 - fUROsemide (LASIX) 40 mg Oral Tablet; One tab daily and may take an extra if needed. Dispense: 60Tab; Refill: 6 Lower extremity edema - cephALEXin (KEFLEX) 500 mg Oral Capsule; Take 1 Cap by mouth every 8 hours for 10 days. Dispense:30 Cap; Refill: 0 - fUROsemide (LASIX) 40 mg Oral Tablet; One tab daily and may take an extra if needed. Dispense: 60Tab; Refill: 6 Other orders - polyethylene glycol (GLYCOLAX) 17 gram/dose Oral Powder; Take 17 g by mouth daily for 30 days. Dispense: 510 g; Refill: 6 Above problems were discussed with patient and [...] 07/29/2024 9:00 AM EST Appointment [facility] [address] [place] [id number] Jomar Kim MD [address] [facility] [place] [address] documented as of this [...] neuropathy weekly. ?? Refer to PCP and/or Blade Grader Operator, Vascular Specialist as indicated. ?? Monitor [...] as of this encounter Visit Diagnoses Diagnosis Venous stasis dermatitis of left lower extremity- Primary Lower extremity edema Edema documented in this encounter Discontinued Medications Medication Sig Discontinue Reason Start Date End Da te fUROsemide (LASIX) 40 mg Oral TabletIndications:Lower extremity edema Take 1 Tab by mouth daily as needed. 05/03/2020 09/29/2020 documented as of this encounter Care Teams Enamel Burner Relationship Specialty Start Date End Date Cristiane Shirley MD [address] [place] [address] PCP - General Family Medicine 08/20/18 12/29/23 Garett Holt MD Internal Medicine-Gastroenterolog y 12/22/12 Ruiz Stokes MD [address] [place] [address] Internal Medicine-Cardiovascular Disease 07/25/14 Yenny Schwab MD 651 [facility] [address] [place], [place] [id number] Internal Medicine-Rheumatology 12/11/16 Joselyn Chance, RN Internal Carver Registered Nurse 05/05/20 03/08/21 documented as of this encounter
--- OUTSIDE RECORDS SUMMARY | 2024-07-22 16:04 | XMS_ITS | Encounter Summary ---
Author Organization [place] [address] Care Team Providers Care Clinical Applications Manager Name Role Phone Garett Holt MD Unavailable [phone] Ruiz Stokes MD Unavailable [phone] Yenny Schwab MD Unavailable [phone] Cristiane Shirley MD Primary Care Provider Joselyn Chance RN Unavailable Unavail able Reason for Visit * Reason Comments Medication Refill Encounter Details Date Type Department Care Team (Late st Contact Info) Description 10/11/2020 Refill [facility] [address] [place] [address] Cristiane Shirley MD [address] [place] [address] Medication Refill Social History Tobacco Use Types [...] Refills Last Filled Start Date End Date STOOL SOFTENER 100 mg Oral Capsule Take 1 capsule by mouth twice daily 60 Cap 10/11/2020 documented in this encounter Plan of Treatment Upcoming Encounters Date Type Department Care Team (Late st Contact Info) Description 07/29/2024 9:00 AM EST Appointment [facility] [address] [place] [id number] Jomar Kim MD [address] [place] [address] documented as of this encounter Goals Goal Patient Goal Type Associated Problems Recent Progress Patient-Stated? Author Blood Pressure < 140/90 Blood Pressure 110/72(04/09 2:44 PM EDT) No Rachel Rogers, RMA BMI (Calculated) < 30 General 50.9(2023 2:44 PM EDT) No Rachel Rogers RMA Eat better, exercise, reach an ideal body weight General No Ni Clinton, float tender Healing General On track(12/03 9:18 AM [...] neuropathy weekly. ?? Refer to PCP and/or Gasoline Engine Inspector, Vascular Specialist as indicated. ?? Monitor [...] (COLACE) 100 mg Oral Capsule Take 1 Cap by mouth 2 times daily. 09/14/2019 10/11/2020 documented as of this encounter Care Teams Clinical Applications Manager Relationship Specialty Start Date End Date Cristiane Shirley MD [address] [place] [address] PCP - General Family Medicine 08/20/18 12/29/23 Garett Holt MD Internal Medicine-Gastroenterolog y 12/22/12 Ruiz Stokes MD [address] [place] [address] Internal Medicine-Cardiovascular Disease 07/25/14 Yenny Schwab MD [address] [address] Internal Medicine-Rheumatology 12/11/16 Joselyn Chance, RN Stockroom Inventory Clerk Registered Nurse 05/05/20 03/08/21 documented as of this encounter
--- OUTSIDE RECORDS SUMMARY | 2024-07-22 16:04 | XMS_ITS | Encounter Summary ---
Author Organization [place] [address] Care Team Providers Care Satin Finisher Name Role Phone Garett Holt MD Unavailable [phone] Ruiz Stokes MD Unavailable [phone] Yenny Schwab MD Unavailable [phone] Cristiane Shirley MD Primary Care Provider [phone] Joselyn Chance RN Unavailable Unavail able Reason for Visit * Reason Onset Date Comments Referral 02/07/2021 Encounter Details Date Type Department Care Team (Late st Contact Info) Description 02/07/2021 Patient Outreach SEP Quality Transformation [address] [place] [address] Lionel Martinez, BA, COS Referral Social History [...] 0 09/29/2020 [facility] - Occupational Stress Questionnaire Answer Date [...] EST Jessee Skelton robert Bella MA * Does this person have difficulty [...] PM EST Jessee Skelton robert Bella MA documented as of this encounter Mental Status * Because of a physical, mental or emotional condition, does this person have serious difficulty concentrating, remembering or making decisions? Answer Entry Date Author No 09/29/2020 1:07 PM EST Jessee Skelton robert Bella MA documented in this encounter Progress Notes * Lionel Martinez BA COS - 02/07/2021 9:44 AM EDT Referral received from: Joselyn Chance RN [facility] Referral note: Transportation Assigned to: ??? Nuria Gonzalez COS documented in this encounter Plan of Treatment Upcoming Encounters Date Type Department Care Team (Late st Contact Info) Description 07/29/2024 9:00 AM EST Appointment [facility] [address] [place] [address] Jomar Kim MD [address] [place] [address] documented as of this encounter Goals Goal Patient Goal Type Associated Problems Recent Progress Patient-Stated? Author Blood Pressure < 140/90 Blood Pressure 110/72(04/09 2:44 PM EDT) No Rachel Rogers, CAROLA BMI (Calculated) < 30 General 50.9(2023 2:44 PM EDT) No Rachel Rogers, CAROLA Eat better, exercise, reach an ideal body weight General No Ni ClintonMATTmanager furniture Healing General On track(12/03 9:18 AM EDT) [...] neuropathy weekly. ?? Refer to PCP and/or Timber Setter, Vascular Specialist as indicated. ?? Monitor patient [...] on filedocumented in this encounter Care Teams Satin Finisher Relationship Specialty Start Date End Date Cristiane Shirley MD [address] [place] [address] PCP - General Family Medicine 08/20/18 12/29/23 Garett Holt MD Internal Medicine-Gastroenterolog y 12/22/12 Ruiz Stokes MD [address] [place] [address] Internal Medicine-Cardiovascular Disease 07/25/14 Yenny Schwab MD [address] [facility] Building [address] [place] [id number] Internal Medicine-Rheumatology 12/11/16 Joselyn Chnace, RN Boarding Specialist Registered Nurse 05/05/20 03/08/21 documented as of this encounter
--- OUTSIDE RECORDS SUMMARY | 2024-07-22 16:04 | XMS_ITS | Encounter Summary ---
Author Organization [place] [address] Care Team Providers Care Shorer Name Role Phone Garett Holt MD Unavailable [phone] Ruiz Stokes MD Unavailable [phone] Yenny Schwab MD Unavailable [phone] Cristiane Shirley MD Primary Care Provider Joselyn Chance RN Unavailable Unavail able Reason for Visit * Reason Comments Medication Refill Encounter Details Date Type Department Care Team (Late st Contact Info) Description 10/23/2020 Refill SEP [facility] [address] [place] [address] Cristiane Shirley MD [address] [place] [address] Medication Refill Social History Tobacco Use Types [...] BY MOUTH DAILY 91 Tab 11 10/24/2020 12/03/2021 metFORMIN (GLUCOPHAGE) 500 mg Oral Tablet TAKE 1 TAB BY MOUTH DAILY (WITH BREAKFAST). 30 Tab 10/24/2020 01/02/2021 lisinopriL (PRINIVIL;ZESTRIL) 20 mg Oral Tablet tabletIndications: Essential hypertension TAKE 1 TAB BY MOUTH DAILY. 30 Tab 10/24/2020 01/02/2021 amLODIPine (NORVASC) 10 mg Oral TabletIndications: Essential hypertension TAKE 1 TAB BY MOUTH DAILY. 30 Tab 10/24/2020 01/02/2021 documented in this encounter Miscellaneous Notes * Telephone Encounter - Lyssa Anne CPhT - 10/24/2020 12:47 PM EST aspirin Medication Refill Protocol not available for this medication. Routed to office staff. metFORMIN Medication Refill Protocol passed. customer experience manager Action: Approved refills to noted follow-up date by provider or protocol if no follow-up date noted. lisinopriL Medication Refill Protocol passed. customer experience manager Action: Approved refills to noted follow-up date by provider or protocol if no follow-up date noted. amLODIPine Medication Refill Protocol passed. customer experience manager Action: Approved refills to noted follow-up date by provider or protocol if no follow-up date noted. documented in this encounter Plan of Treatment Upcoming Encounters Date Type Department Care Team (Late st Contact Info) Description 07/29/2024 9:00 AM EST Appointment [facility] [address] [place] [address] Jomar Kim MD [address] [place] [address] documented as of this encounter Goals Goal Patient Goal Type Associated Problems Recent Progress Patient-Stated? Author Blood Pressure < 140/90 Blood Pressure 110/72(04/09 2:44 PM EDT) No Rachel Rogers RMA BMI (Calculated) < 30 General 50.9(2023 2:44 PM EDT) No Rachel Rogers RMA Eat better, exercise, reach an ideal body weight General No Ni Clinton, publication specialist Healing General On track(12/03 9:18 AM [...] neuropathy weekly. ?? Refer to PCP and/or Test Fixture Assembler, Vascular Specialist as indicated. ?? Monitor patient compliance with wound care, diabetes management and proper offloading. Patients abdominal discomfort will improve or resolve by next follow up call from RN CC. General Not on track(03/09 11:41 AM EDT) No Joselyn Chance RN Stay Tobacco Free Lifestyle On track(02/07 10:23 AM EDT) No Wedny Espinoza LPN HEMOGLOBIN A1C < 7.0 Result Component 5.6( 024 3:04 PM EST) No Rachel Rogers RMA documented as of this encounter Visit Diagnoses Diagnosis Essential hypertension Unspecified essential hypertension documented in this encounter Discontinued Medications Medication Sig Discontinue Reason Start Date End Da te amLODIPine (NORVASC) 10 mg Oral TabletIndications:Essentia l hypertension TAKE 1 TAB BY MOUTH DAILY. 05/03/2020 10/24/2020 lisinopriL (PRINIVIL;ZESTRIL) 20 mg Oral Tablet tabletIndications:Essentia l hypertension TAKE 1 TAB BY MOUTH DAILY. 05/03/2020 10/24/2020 metFORMIN (GLUCOPHAGE) 500 mg Oral Tablet TAKE 1 TAB BY MOUTH DAILY (WITH BREAKFAST). 05/03/2020 10/24/2020 aspirin (ASPIRIN LOW DOSE) 81 mg Oral Tablet, Delayed Release (E.C.) Take 1 Tab by mouth daily. 09/14/2019 10/24/2020 documented as of this encounter Care Teams Shorer Relationship Specialty Start Date End Date Cristiane Shirley MD [address] [place], [place] [id number] PCP - General Family Medicine 08/20/18 12/29/23 Garett Holt MD Internal Medicine-Gastroenterolog y 12/22/12 Ruiz Stokes MD [address] [place], [place] [id number] Internal Medicine-Cardiovascular Disease 07/25/14 Yenny Schwab MD [address]51 [facility] [address] [place] [address] Internal Medicine-Rheumatology 12/11/16 Joselyn Chance, RN Manager Call Center Registered Nurse 05/05/20 03/08/21 documented as of this encounter
--- OUTSIDE RECORDS SUMMARY | 2024-07-22 16:04 | XMS_ITS | Encounter Summary ---
Author Organization [place] [address] Care Team Providers Care Honing Job Setter Name Role Phone Garett Holt MD Unavailable [phone] Ruiz Stokes MD Unavailable [phone] Yenny Schwab MD Unavailable [phone] Cristiane Shirley MD Primary Care Provider Joselyn Chance RN Unavailable Unavail able Reason for Visit * Reason Onset Date Comments Symptom Call 12/27/2020 Encounter Details Date Type Department Care Team (Late st Contact Info) Description 12/27/2020 Telephone [facility] [address] [place] [address] Cristiane Shirley MD [address] [place], [place] [id number] Symptom Call Social History Tobacco Use Types Packs/Day [...] Date cephALEXin (KEFLEX) 500 mg Oral Capsule Take 1 Cap by mouth every 8 hours for 10 days. 30 Cap 12/27/2020 01/19/2021 documented in this encounter Miscellaneous Notes * Telephone Encounter - Elisa Brown - 12/27/2020 2:57 PM EDT Images from the original note were not included. Symptoms Call Who is reporting the symptoms: Other spouse What symptom(s) is the patient experiencing: sore throat, congested and watery eyes How long have symptoms been present: 1 day(s) ago Has the patient been seen for this: no Has the patient tried anything to relieve the symptoms and did it help: Yes cough drops If pain, what level on scale 1-10 (10 being the greatest): No Pain Desired Outcome: Rx, antiobiotic Pharmacy & Location:[address] [address] [address] [phone] Additional Notes: Travel Screening Question Response In the last month, have you been in contact with someone who was confirmed or suspected to have Coronavirus / COVID-19? No / Unsure Have you had a COVID-19 viral test in the last 14 days? No (has had covid vaccine) Do you have any of the following new or worsening symptoms? Runny nose;Cough;Diarrhea Have you traveled internationally or domestically in the last month? Unable to assess Travel History Travel since 11/26/20 No documented travel since 11/26/20 documented in this encounter Plan of Treatment Upcoming Encounters Date Type Department Care Team (Late st Contact Info) Description 07/29/2024 9:00 AM EST Appointment [facility] [address] [place], [place] [id number] Jomar Kim MD [address] [place] [address] documented as of this encounter Goals Goal Patient Goal Type Associated Problems Recent Progress Patient-Stated? Author Blood Pressure < 140/90 Blood Pressure 110/72(04/09 2:44 PM EDT) No Rachel Rogers RMA BMI (Calculated) < 30 General 50.9(2023 2:44 PM EDT) No Rachel Rogers RMA Eat better, exercise, reach an ideal body weight General No Ni Clinton deputy attorney general Healing General On track(12/03 9:18 AM EDT) [...] neuropathy weekly. ?? Refer to PCP and/or Focusing Machine Operator, Vascular Specialist as indicated. ?? [...] on filedocumented in this encounter Care Teams Honing Job Setter Relationship Specialty Start Date End Date Cristiane Shirley MD [address] [place] [address] PCP - General Family Medicine 08/20/18 12/29/23 Garett Holt MD Internal Medicine-Gastroenterolog y 12/22/12 Ruiz Stokes MD [address] [place] [id number] Internal Medicine-Cardiovascular Disease 07/25/14 Yenny Schwab MD 651 [facility] [address] [place] [id number] Internal Medicine-Rheumatology 12/11/16 Joselyn Chance, RN Oil And Gas Recruiter Registered Nurse 05/05/20 03/08/21 documented as of this encounter
--- OUTSIDE RECORDS SUMMARY | 2024-07-22 16:04 | XMS_ITS | Encounter Summary ---
Author Organization [facility] [place] [address] Care Team Providers Care Arboriculture Instructor Name Role Phone Garett Holt MD Unavailable [phone] Ruiz Stokes MD Unavailable [phone] Yenny Schwab MD Unavailable [phone] Cristiane Shirley MD Primary Care Provider [phone] Joselyn Chance RN Unavailable Unavail able Encounter Details Date Type Department Care Team (Latest Contact Info) Description 09/06/2020 Travel Social History Tobacco Use Types Packs/Day [...] have Coronavirus / COVID-19? No / Unsure 09/06/2020 10:34 AM EST documented as of this encounter Functional Status * Is the person deaf or does he/she have serious difficulty hearing? Answer Date of Assessment Author No 09/14/2019 10:05 AM EST MorganBrynn MULU * Is the person blind or does [...] No 09/14/2019 10:05 AM EST Brynn Morgan MULU documented as of this encounter Mental Status [...] 9:00 AM EST Appointment [facility] [address] [facility] [place] [address] Jomar Kim MD [address] [place] [address] documented as of this encounter Goals Goal Patient Goal Type Associated Problems Recent Progress Patient-Stated? Author Blood Pressure < 140/90 Blood Pressure 110/72(04/27 2:44 PM EDT) No Rachel Rogers RMA BMI (Calculated) < 30 General 50.9( 2:44 PM EDT) No Rachel Rogers RMA Eat better, exercise, reach an ideal body weight General No Ni Clinton, production grader Healing General On track(2018 9:18 AM EDT) No Bessie Morse, MATT [...] weekly. ?? Refer to PCP and/or Auto Parts Salesperson, Vascular Specialist as indicated. ?? Monitor patient compliance with wound care, diabetes management and proper offloading. Stay Tobacco Free Lifestyle On track(2020 10:23 AM EDT) No Wendy Espinoza LPN HEMOGLOBIN A1C < 7.0 Result Component 5.6(11/09/19 24 3:04 PM EST) No Rachel Rogers RMA documented as of this encounter Visit Diagnoses Not on filedocumented in this encounter Care Teams Arboriculture Instructor Relationship Specialty Start Date End Date Cristiane Shirley MD [address] [place] [address] PCP - General Family Medicine 08/20/18 12/29/23 Garett Holt MD Internal Medicine-Gastroenterolog y 12/22/12 Ruiz Stokes MD [address] [place] [id number] Internal Medicine-Cardiovascular Disease 07/25/14 Yenny Schwab MD 651 [facility] [address] [id number] Internal Medicine-Rheumatology 12/11/16 Joselyn Chance, RN Vp Of Global Marketing Registered Nurse 05/05/20 03/08/21 documented as of this encounter
--- OUTSIDE RECORDS SUMMARY | 2024-07-22 16:05 | XMS_ITS | Encounter Summary ---
Author Organization [place] [address] Care Team Providers Care Dumpling Machine Operator Name Role Phone Garett Holt MD Unavailable [phone] Ruiz Stokes MD Unavailable [phone] Yenny Schwab MD Unavailable [phone] Cristiane Shirley MD Primary Care Provider [phone] Joselyn Chance RN Unavailable Unavail able Encounter Details Date Type Department Care Team (Late st Contact Info) Description 07/22/2020 1:09 PM EST - 07/22/2020 11:59 PM EST Hospital Encounter [facility]G LAB CA DS [address] [place] [address] Covid19, Edg Lab Ca Ds Pre-op testing; Encounter for laboratory testing for COVID-19 virus Discharge Disposition: Home or Self Care Social [...] have Coronavirus / COVID-19? No / Unsure 07/22/2020 1:08 PM EST documented as of this encounter Functional Status * Is the person deaf or does he/she have serious difficulty hearing? Answer Date of Assessment Author No 09/14/2019 10:05 AM Brynn Ross RMA * Is the person blind or does he/she have serious difficulty seeing even when wearing glasses? Answer Date of Assessment Author No 09/14/2019 10:05 AM Brynn Ross RMA * Does this person have serious difficulty walking or climbing stairs? Answer Date of Assessment Author No 09/14/2019 10:05 AM Brynn Ross RMA * Does this person have difficulty dressing or bathing? Answer Date of Assessment Author No 09/14/2019 10:05 AM Brynn Ross RMA * Because of a physical, mental or emotional condition, does this person have difficulty doing errands alone such as visiting a doctor's office or shopping? Answer Date of Assessment Author No 09/14/2019 10:05 AM Brynn Ross RMA documented as of this encounter Mental Status * Because of a physical, mental or emotional condition, does this person have serious difficulty concentrating, remembering or making decisions? Answer Entry Date Author No 01/23/2019 9:05 AM RINAT Nitin Yousif CMA documented in this encounter Medications at Time of Discharge CALCIUM ORAL Take 1 Tab by mouth daily. cholecalciferol, vitamin D3, (VITAMIN D3) 25 mcg (1,000 unit) Oral Tablet Take 1 Tab by mouth daily. 30 Tab 11 09/14/2019 amLODIPine (NORVASC) 10 mg Oral TabletIndications: Essential hypertension TAKE 1 TAB BY MOUTH DAILY. 90 Tab 05/03/2020 1 aspirin (ASPIRIN LOW DOSE) 81 mg Oral Tablet, Delayed Release (E.C.) Take 1 Tab by mouth daily. 30 Tab 5 09/14/2019 1 atorvastatin (LIPITOR) 20 mg Oral Tablet TAKE 1 TABLET BY MOUTH EVERY DAY 90 Tab 10 05/03/2020 0 docusate sodium (COLACE) 100 mg Oral Capsule Take 1 Cap by mouth 2 times daily. 60 Cap 09/14/2019 1 fluticasone propionate (FLONASE) 50 mcg/actuation Nasl Eagle, SuspensionIndicati ons:ETD (Eustachian tube dysfunction), right Use 1 spray(s) in each nostril once daily 16 g 01/05/2020 1 fUROsemide (LASIX) 40 mg Oral TabletIndications: Lower extremity edema Take 1 Tab by mouth daily as needed. 30 Tab 6 05/03/2020 1 lisinopriL (PRINIVIL;ZESTRIL) 20 mg Oral Tablet tabletIndications: Essential hypertension TAKE 1 TAB BY MOUTH DAILY. 90 Tab 05/03/2020 1 metFORMIN (GLUCOPHAGE) 500 mg Oral Tablet TAKE 1 TAB BY MOUTH DAILY (WITH BREAKFAST). 90 Tab 05/03/2020 1 omeprazole (PRILOSEC) 40 mg Oral Capsule, Delayed Release(E.C.) Take 1 Cap by mouth 2 times daily. 60 Cap 2 07/18/2020 1 documented as of this encounter Discharge Disposition Disposition Code Departure Means Destination Home or Self Care documented in this encounter Plan of Treatment Upcoming Encounters Date Type Department Care Team (Late st Contact Info) Description 07/29/2024 9:00 AM EST Appointment [facility] [address] [place] [address] Jomar Kim MD [address] [place] [address] documented as of this encounter Goals Goal Patient Goal Type Associated Problems Recent Progress Patient-Stated? Author Blood Pressure < 140/90 Blood Pressure 110/72(04/27 2:44 PM EDT) No Rachel Rogers RMA BMI (Calculated) < 30 General 50.9( 024 2:44 PM EDT) No Rachel Rogers RMA Eat better, exercise, reach an ideal body weight General No Ni Clinton, storage worker Healing General On track(2018 9:18 AM EDT) No Bessie Morse RN [...] neuropathy weekly. ?? Refer to PCP and/or Ultrasound Tech, Vascular Specialist as indicated. ?? Monitor patient compliance with wound care, diabetes management and proper offloading. Stay Tobacco Free Lifestyle On track(2020 10:23 AM EDT) No Wendy Espinoza LPN HEMOGLOBIN A1C < 7.0 Result Component 5.6(11/09/19 24 3:04 PM EST) No Rachel Rogers RMA documented as of this encounter Procedures Procedure Name Priority Date/Time Associated Diagnosis Comments CORONAVIRUS 2019 Routine 07/22/2020 1:09 PM EST Pre-op testing Encounter for laboratory testing for COVID-19 virus documented in this encounter Results * CORONAVIRUS 2019 (07/22/2020 1:09 PM EST) CORONAVIRUS [id number] Not Detected Not Detected 07/23/2020 12:25 AM EST [facility] [employer] Comment:Caution should be ex ercised when interpreting a result of 'Not Detected'. A result of 'Not Detected' does not rule out COVID-19 and cannot be used as sole basis for treatment or patient management decisions. If COVID-19 is still suspected following a 'Not Detected' result, re-testing should be considered. Swab BOTH ANTERIOR NARES / Unknown 07/22/2020 1:09 PM EST 07/22/2020 1:09 PM EST Narrative PREFERRED LAB [facility] - 07/23/2020 12:25 AM EST This test is a nucleic acid amplification test intended for the qualitative detection of nucleic acid from the SARS-CoV-2 in upper respiratory samples collected from individuals suspected of COVID-19. Test is performed on the C[employer] platform under the FDA's Emergency Use Authorization (EUA). [employer] Provider Fact Sheet: https://www.Ofuz.gov/media/441472/download [employer] Patient Fact Sheet: ??https://www.fda.gov/media/981225/download Jomar Kim MD MICROBIOLOGY - GENERAL ORDER DICK Final Result [employer] [address] [facility], [place] [address] documented in this encounter Visit Diagnoses Diagnosis Pre-op testing Preoperative examination, unspecified Encounter for laboratory testing for COVID-19 virus documented in this encounter Care Teams Dumpling Machine Operator Relationship Specialty Start Date End Date Cristiane Shirley MD [address] [place], [place] [id number] PCP - General Family Medicine 08/20/18 12/29/23 Garett Holt MD Internal Medicine-Gastroenterolog y 12/22/12 Ruiz Stokes MD [address] [place] [address] Internal Medicine-Cardiovascular Disease 07/25/14 Yenny Schwab MD 651 [facility] Building [address] [place] [address] Internal Medicine-Rheumatology 12/11/16 Joselyn Chance, RN Capacity Analyst Registered Nurse 05/05/20 03/08/21 documented as of this encounter
--- OUTSIDE RECORDS SUMMARY | 2024-07-22 16:05 | XMS_ITS | Encounter Summary ---
Author Organization [facility] [place] [address] Care Team Providers Care Printing Manager Name Role Phone Garett Holt MD Unavailable [phone] Ruiz Stokes MD Unavailable [phone] Yenny Schwab MD Unavailable [phone] Cristiane Shirley MD Primary Care Provider [phone] Joselyn Chance RN Unavailable Unavail able Encounter Details Date Type Department Care Team (Latest Contact Info) Description 07/10/2020 Travel Social History Tobacco Use Types Packs/Day [...] have Coronavirus / COVID-19? No / Unsure 07/10/2020 10:01 AM EST documented as of this encounter [...] 10:05 AM EST Brynn Morgan RMLeigh * Because of a physical, mental or [...] 9:00 AM EST Appointment [facility] [address] [place] [address] Jomar Kim MD [address] [place] [address] documented as of this encounter Goals Goal Patient Goal Type Associated Problems Recent Progress Patient-Stated? Author Blood Pressure < 140/90 Blood Pressure 110/72(04/27 2:44 PM EDT) No Rachel Rogers RMA BMI (Calculated) < 30 General 50.9( 2:44 PM EDT) No Rachel Rogers RMA Eat better, exercise, reach an ideal body weight General No Ni Clinton, metal furnace operator Healing General On track(2018 9:18 AM EDT) [...] neuropathy weekly. ?? Refer to PCP and/or Emt Basic, Vascular Specialist as indicated. ?? Monitor patient compliance with wound care, diabetes management and proper offloading. Stay Tobacco Free Lifestyle On track(2020 10:23 AM EDT) No Wendy Espinoza LPN HEMOGLOBIN A1C < 7.0 Result Component 5.6(11/09/19 24 3:04 PM EST) No Rachel Rogers RMA documented as of this encounter Visit Diagnoses Not on filedocumented in this encounter Care Teams Printing Manager Relationship Specialty Start Date End Date Cristiane Shirley MD [address] [place] [address] PCP - General Family Medicine 08/20/18 12/29/23 Garett Holt MD Internal Medicine-Gastroenterolog y 12/22/12 Ruiz Stokes MD [address] [place] [id number] Internal Medicine-Cardiovascular Disease 07/25/14 Yenny Schwab MD 651 [facility] [address] [place] [id number] Internal Medicine-Rheumatology 12/11/16 Joselyn Chance, RN Him Tech Registered Nurse 05/05/20 03/08/21 documented as of this encounter
--- OUTSIDE RECORDS SUMMARY | 2024-07-22 16:05 | XMS_ITS | Encounter Summary ---
Author Organization [place] [address] Care Team Providers Care Employee Benefits Attorney Name Role Phone Garett Holt MD Unavailable [phone] Ruiz Stokes MD Unavailable [phone] Yenny Schwab MD Unavailable [phone] Cristiane Shirley MD Primary Care Provider Joselyn Cahnce RN Unavailable Unavail able Reason for Visit * Reason Onset Date Comments Information Only 06/21/2020 Home Health Car e Encounter Details Date Type Department Care Team (Late st Contact Info) Description 06/21/2020 Telephone [facility] [address] [place] [address] Cristiane Shirley MD [address] [place] [address] Information Only (Home Health Care) Social History Tobacco Use Types Packs/Day Years [...] have Coronavirus / COVID-19? No / Unsure 07/26/2020 8:58 AM EST documented as of this encounter [...] Nitin Yousif CMA documented in this encounter Miscellaneous Notes * Telephone Encounter - Nadiya Albarran - 06/21/2020 8:27 AM EDT Aleksandra from [facility] just wanted to let Dr. Shirley know that they had admitted the patient for home health care but found out the patient has bedbugs. She said they have to put the services on hold until treatment for the bedbugs is started documented in this encounter Plan of Treatment Upcoming Encounters Date Type Department Care Team (Late st Contact Info) Description 07/29/2024 9:00 AM EST Appointment [facility] [address] [place] [id number] Jomar Kim MD [address] [place] [address] documented as of this encounter Goals Goal Patient Goal Type Associated Problems Recent Progress Patient-Stated? Author Blood Pressure < 140/90 Blood Pressure 110/72(04/27 2:44 PM EDT) No Rachel Rogers RMA BMI (Calculated) < 30 General 50.9( 2:44 PM EDT) No Rachel Rogers RMA Eat better, exercise, reach an ideal body weight General No Ni Clinton, masonry contractor Healing General On track(2018 9:18 AM EDT) [...] neuropathy weekly. ?? Refer to PCP and/or Trash Collector, Vascular Specialist as indicated. ?? Monitor patient compliance with wound care, diabetes management and proper offloading. Stay Tobacco Free Lifestyle On track(2020 10:23 AM EDT) eWndy Moon LPN HEMOGLOBIN A1C < 7.0 Result Component 5.6(11/09/19 3:04 PM EST) Rachel Regan RMA documented as of this encounter Visit Diagnoses Not on filedocumented in this encounter Care Teams Employee Benefits Attorney Relationship Specialty Start Date End Date Cristiane Shirley MD [address] [place] [address] PCP - General Family Medicine 08/20/18 12/29/23 Garett Holt MD Internal Medicine-Gastroenterolog y 12/22/12 Ruiz Stokes MD [address] [place] [address] Internal Medicine-Cardiovascular Disease 07/25/14 Yenny Schwab MD [address] [facility] [address] [place] [address] Internal Medicine-Rheumatology 12/11/16 Joselyn Chance, RN Piece Goods Packer Registered Nurse 05/05/20 03/08/21 documented as of this encounter
--- OUTSIDE RECORDS SUMMARY | 2024-07-22 16:05 | XMS_ITS | Encounter Summary ---
Author Organization [place] [address] Care Team Providers Care Humanities Coordinator Name Role Phone Garett Holt MD Unavailable [phone] Ruiz Stokes MD Unavailable [phone] Yenny Schwab MD Unavailable [phone] Cristiane Shirley MD Primary Care Provider [phone] Joselyn Chance RN Unavailable Unavail able Reason for Visit * Reason Onset Date Comments Referral 06/14/2020 Encounter Details Date Type Department Care Team (Late st Contact Info) Description 06/14/2020 Patient Outreach [facility] [address] [place] [address] Omaira Wilder, BS, COS Referral Social History [...] have Coronavirus / COVID-19? No / Unsure 05/25/2020 9:59 AM EDT documented as of this encounter [...] encounter Progress Notes * Omaira Wilder BS, COS - 06/14/2020 1:36 PM EDT Referral received from: Nunu Leroy Referral note: Transportation pt states this is an ongoing issue for her. She would like to schedule mammogram butis unable to due to transportation Assigned to: PERICO Garcia documented in this encounter Plan of Treatment Upcoming Encounters Date Type Department Care Team (Late st Contact Info) Description 07/29/2024 9:00 AM EST Appointment [facility] [address] [place] [id number] Jomar Kim MD [address] [facility] [place] [address] documented as of this encounter Goals Goal Patient Goal Type Associated Problems Recent Progress Patient-Stated? Author Blood Pressure < 140/90 Blood Pressure 110/72(04/27 2:44 PM EDT) No Rachel Rogers RMA BMI (Calculated) < 30 General 50.9( 024 2:44 PM EDT) No Rachel Rogers RMA Eat better, exercise, reach an ideal body weight General No Ni Clinton, poured concrete wall technician Healing General On track(2018 9:18 AM EDT) [...] neuropathy weekly. ?? Refer to PCP and/or Professional Nurse, Vascular Specialist as indicated. ?? Monitor patient compliance with wound care, diabetes management and proper offloading. Stay Tobacco Free Lifestyle On track(2020 10:23 AM EDT) No Wendy Espinoza LPN HEMOGLOBIN A1C < 7.0 Result Component 5.6(11/09/19 24 3:04 PM EST) No Rachel Rogers A documented as of this encounter Visit Diagnoses Not on filedocumented in this encounter Care Teams Humanities Coordinator Relationship Specialty Start Date End Date Cristiane Shirley MD [address] [place], [place] [id number] PCP - General Family Medicine 08/20/18 12/29/23 Garett Holt MD Internal Medicine-Gastroenterolog y 12/22/12 Ruiz Stokes MD [address] [place] [address] Internal Medicine-Cardiovascular Disease 07/25/14 Yenny Schwab MD [address] [address] Internal Medicine-Rheumatology 12/11/16 Joselyn Chance, RN Tower Operator Registered Nurse 05/05/20 03/08/21 documented as of this encounter
--- OUTSIDE RECORDS SUMMARY | 2024-07-22 16:05 | XMS_ITS | Encounter Summary ---
Author Organization [place] [address] Care Team Providers Care Labor Law Professor Name Role Phone Garett Holt MD Unavailable [phone] Ruiz Stokes MD Unavailable [phone] Yenny Schwab MD Unavailable [phone] Cristiane Shirley MD Primary Care Provider Joselyn Chance RN Unavailable Unavail able Reason for Visit * Reason Comments Medication Refill Encounter Details Date Type Department Care Team (Late st Contact Info) Description 08/09/2020 Refill [facility] [address] [place] [address] Cristiane Shirley MD [address] [place] [address] Medication Refill Social History Tobacco Use Types [...] Nitin Yousif CMA documented in this encounter Ordered Prescriptions Prescription Sig Dispense Quantity Refills Last Filled Start Date End Date atorvastatin (LIPITOR) 20 mg Oral Tablet TAKE 1 TABLET BY MOUTH EVERY DAY 90 Tab 2 08/10/2020 03/27/2021 omeprazole (PRILOSEC) 20 mg Oral Capsule, Delayed Release(E.C.) TAKE 1 CAP BY MOUTH DAILY. 84 Cap 3 08/10/2020 02/24/2021 documented in this encounter Miscellaneous Notes * Telephone Encounter - Lisbet Cesar CPhT - 08/10/2020 2:10 PM EST Atorvastatin- Medication Refill Protocol passed. school services officer Action: Approved refills to noted follow-up date by provider or protocol if no follow-up date noted. Omeprazole- Medication Refill Protocol failed due to appointment. school services officer Reason: Chart review does not show a coded diagnosis in protocol timeframe school services officer Action: Defer to office. Patient is requesting 90-day supply but protocol only allows for a 30-day supply. Routed to office staff for outreach to schedule appointment. Pharmacy did not have refills on file. documented in this encounter Plan of Treatment Upcoming Encounters Date Type Department Care Team (Late st Contact Info) Description 07/29/2024 9:00 AM EST Appointment [facility] [address] [place] [address] Jomar Kim MD [address] [place] [address] documented as of this encounter Goals Goal Patient Goal Type Associated Problems Recent Progress Patient-Stated? Author Blood Pressure < 140/90 Blood Pressure 110/72(04/27 2:44 PM EDT) No Rachel Rogers RMA BMI (Calculated) < 30 General 50.9( 2:44 PM EDT) No Rachel Rogers RMA Eat better, exercise, reach an ideal body weight General No Ni Clinton, outboard motor tester Healing General On track(2018 9:18 AM EDT) [...] neuropathy weekly. ?? Refer to PCP and/or Skip Operator, Vascular Specialist as indicated. ?? Monitor patient compliance with wound care, diabetes management and proper offloading. Stay Tobacco Free Lifestyle On track(2020 10:23 AM EDT) Wendy Moon LPN HEMOGLOBIN A1C < 7.0 Result Component 5.6(11/09/19 3:04 PM EST) Rachel Regan RMA documented as of this encounter Visit Diagnoses Not on filedocumented in this encounter Discontinued Medications Medication Sig Discontinue Reason Start Date End Da te atorvastatin (LIPITOR) 20 mg Oral Tablet TAKE 1 TABLET BY MOUTH EVERY DAY 05/03/2020 08/10/2020 documented as of this encounter Care Teams Labor Law Professor Relationship Specialty Start Date End Date Cristiane Shirley MD [address] [place] [address] PCP - General Family Medicine 08/20/18 12/29/23 Garett Holt MD Internal Medicine-Gastroenterolog y 12/22/12 Ruiz Stokes MD [address] [place] [address] Internal Medicine-Cardiovascular Disease 07/25/14 Yenny Schwab MD [address] [facility] [address] [place] [address] Internal Medicine-Rheumatology 12/11/16 Joselyn Chance, RN Cable Television Technician Registered Nurse 05/05/20 03/08/21 documented as of this encounter
--- OUTSIDE RECORDS SUMMARY | 2024-07-22 16:05 | XMS_ITS | Encounter Summary ---
Author Organization [facility] [place] [address] Care Team Providers Care Fiber Glass Worker Name Role Phone Garett Holt MD Unavailable [phone] Ruiz Stokes MD Unavailable [phone] Yenny Schwab MD Unavailable [phone] Cristiane Shirley MD Primary Care Provider [phone] Joselyn Chance RN Unavailable Unavail able Encounter Details Date Type Department Care Team (Latest Contact Info) Description 07/06/2020 Travel Social History Tobacco Use Types Packs/Day [...] have Coronavirus / COVID-19? No / Unsure 07/06/2020 3:09 PM EDT documented as of this encounter [...] 9:00 AM EST Appointment [facility] [address] [place] [address] Jomar Kim MD [address] [place] [address] documented as of this encounter Goals Goal Patient Goal Type Associated Problems Recent Progress Patient-Stated? Author Blood Pressure < 140/90 Blood Pressure 110/72(04/27 2:44 PM EDT) No Rachel Rogers RMA BMI (Calculated) < 30 General 50.9( 2:44 PM EDT) Rachel Regan RMA Eat better, exercise, reach an ideal body weight General No Ni Clinton, litigation secretary Healing General On track(2018 9:18 AM EDT) No Besise Morse RN Note: Wound volume reduction goals [...] neuropathy weekly. ?? Refer to PCP and/or Information Services Consultant, Vascular Specialist as indicated. ?? Monitor patient compliance with wound care, diabetes management and proper offloading. Stay Tobacco Free Lifestyle On track(2020 10:23 AM EDT) Wendy Moon LPN HEMOGLOBIN A1C < 7.0 Result Component 5.6(11/09/19 24 3:04 PM EST) No Rachel Rogers RMA documented as of this encounter Visit Diagnoses Not on filedocumented in this encounter Care Teams Fiber Glass Worker Relationship Specialty Start Date End Date Cristiane Shirley MD [address] [place] [address] PCP - General Family Medicine 08/20/18 12/29/23 Garett Holt MD Internal Medicine-Gastroenterolog y 12/22/12 Ruiz Stokes MD [address] [place] [id number] Internal Medicine-Cardiovascular Disease 07/25/14 Yenny Schwab MD 651 [facility] [address] [place] [id number] Internal Medicine-Rheumatology 12/11/16 Joselyn Chance, RN Teamcenter Consultant Registered Nurse 05/05/20 03/08/21 documented as of this encounter
--- OUTSIDE RECORDS SUMMARY | 2024-07-22 16:05 | XMS_ITS | Encounter Summary ---
Author [place] [address] [address] Team Prov[address] Care Pl Sql Programmer Name Role Phone Garett Holt MD Unavailable [phone] Ruiz Stokes MD Unavailable [phone] Yenny Schwab MD Unavailable [phone] Cristiane Shirley MD Primary Care Provider [phone] Joselyn Chance RN Unavailable Unavail able Reason for Visit * Auth/Cert/Inpt Specialty Diagnoses / Procedures Referred By Contac t Referred To Contact Diagnoses Periumbilical abdominal pain Periumbilical abdominal pain [R10.33] Procedures TX EGD TRANSORAL BIOPSY SINGLE/MULTIPLE ESOPHAGOGASTRODUODENOSCOPY Referral ID Status Reason Start Date Expiration Date Visits Re quested Visits Authorized [id number] 1 1 Encounter Details Date Type Department Care Team (Latest Contact Info) Description 07/26/2020 9:40 AM EST - 07/26/2020 9:55 AM EST Surgery [facility] [address] [place] [address] Jomar Kim MD [address] [place] [address] ESOPHAGOGASTRODUODENOSCOPY (ANESTHESIA) Surgery Details Date/Time Status Location OR Service Patient Class Case Cl ass Case Type Trauma Case? 07/26/2020 9:40 AM Posted [facility] 01 Endoscopy Outpatient Elective Panel 1 Procedure LRB Anes Op Region Wound Class Comments ESOPHAGOGASTRODUODENOSCOPY (ANESTHESIA) N/A Monitored Anesthesia Care ESOPHAGOGASTR ODUODENOSCOPY with biopsy Surgeon Surgeon Role Service Panel Jomar Kim MD Primary Endoscopy 1 documented in this encounter Social History Tobacco [...] AM EST documented as of this encounter Last Filed Vital Signs Vital Sign Reading Time Taken Comments Blood Pressure 101/60 07/26/2020 9:47 AM EST Pulse 48 07/26/2020 9:47 AM EST Temperature 36.1 ??C (97 ??F) 07/26/2020 9:45 AM EST Respiratory Rate 18 07/26/2020 9:47 AM EST Oxygen Saturation 100% 07/26/2020 9:45 AM EST Inhaled Oxygen Concentration - - Weight 115.6 kg (254 lb 12.8 oz) 07/26/2020 8:54 AM EST Height 162.6 cm (5' 4 ) 07/26/2020 8:54 AM EST Body Mass Index 43.74 07/26/2020 8:54 AM EST documented in this encounter Functional [...] Entry Date Author No 01/23/2019 9:05 AM Nitin Rider CMA documented in this encounter Discharge Instructions * Discharge Instructions* Conner Cabezas - 07/26/2020 9:36 AM EST [facility] Discharge Instructions - Following Anesthesia We appreciate the opportunity to care for you today! Here are a few reminders as you head home: ?? A responsible adult, 18 years or older must be in attendance until tomorrow morning. ?? Rest quietly today. ?? May resume usual diet as tolerated or as directed by your surgeon. ?? Do not drive or operate any machinery until tomorrow morning or as instructed. ?? Do not make any legal or important decisions for the next 24 hours. ?? Do not drink alcoholic beverages or take sleeping pills for 24 hours unless otherwise directed. ?? If you received a nerve block for post-operative pain control, protect your blocked arm/leg. It is numb. Carefully pad your limb to prevent pressure sores and other injuries. Be careful with applying cold/warm to the blocked limb. Numbness will alter the sensation of the limb and could damage your skin if you cannot correctly feel the temperature. Some nerve blocks with the medication Exparel are designed to last up to 3 days. ?? If you have questions or concerns regarding your anesthesia experience, please call our office at . Get Well Soon! [facility] Discharge Instructions - Following Endoscopy 1. A responsible adult, 18 years or older must be in attendance until the next A.M. 2. Rest quietly today. 3. May resume usual diet. 4. Do not drive or operate any machinery until the next A.M., or as instructed. 5. No alcoholic beverages for 24 hours. 6. Do not make any legal or important decisions for the next 24 hours. 7. Call the physician???s office for a follow-up visit 8. Patient discharged to the care of family ADDITIONAL INSTRUCTIONS: Call Dr. Kim at [phone] if the following occurs: EGD: Abdominal pains, cramps, swelling, chest pains, difficulty in swallowing, chills, coughing blood, severe sore throat, or body temp. over 101 degrees. Other Instructions: Medications Reviewed Copy of Discharge Medication Instruction Sheet Given ??Normal esophagus. ??Normal stomach. ??Normal duodenum. Plan: - No findings to account for her symptoms. - Biopsies obtained to r/o H. Pylori. - Will f/u with surgery. - Pictures could not be obtained today due to technical issues with the software. This section is an excerpt of the full report. documented in this encounter Medications at Time [...] 1 fluticasone propionate (FLONASE) 50 mcg/actuation Nasl Demarest, SuspensionIndicati ons:ETD (Eustachian tube dysfunction), right Use [...] Code Departure Means Destination Home or Self Half-Way documented in this encounter H&P Notes * Jomar Kim MD - 07/26/2020 9:03 AM EST Procedure: EGD ASA: 4 Mallampati: 3 Allergies: Allergies Allergen Reactions Amitriptyline Nausea And Vomiting Amoxil [Amoxicillin] Hives Clarithromycin hives Clindamycin Nausea Only Egg Nausea Only Naproxen Rash Nexium [Esomeprazole Magnesium] Hives and Rash Blisters in Mouth Previous anesthesia reaction: No Pre-Procedure Assessment: Risks, benefits, potential complications and alternatives discussed with the patient or their legally authorized sales representative health insurance. The patient's pre-procedure physical assessment indicates that the patient is suitable candidate for and agrees to the planned sedation and procedure. NPO as ordered for procedure: Yes Cardiovascular and Vital signs Stable: yes Comment: Adequate/Patient Oral Airway yes Comment: H&P Update History and Physical within 30 days and on chart? yes I have reviewed the H&P and examined the patient. Changes? no List: Additional Findings: None This update is in reference to H&P performed by myself on 07/26/20 Physician Signature: Jomar Kim MD Date:07/26/2020 Time:9:03 AM Source Note - Jomar Kim MD - 07/18/2020 3:30 PM EST [facility] Gastroenterology Consult Note Primary Care Physician: Cristiane Shirley MD Reason for referral: Abdominal Pain, Diarrhea, and Nausea History of Presenting Illness Alyssa Jamil is a(n) 65 y.o. female asked to see us in consultation by Cristiane Shirley MD for evaluation of ktahi umbilical pain and chest pain. 65-year-old female with multiple medical comorbidities including obstructive sleep apnea, type 2 diabetes mellitus, morbid obesity, polymyalgia rheumatica and history of endometrial cancer who presents to the clinic today for complaints of periumbilical abdominal pain and chest pain while eating spicy foods. Patient was recently admitted in the hospital and April of this year with what appeared to be an incarcerated ventral hernia s/p repair with mesh placement. Patient reports that she has been having abdominal pain essentially since that surgery. She went to the emergency room in May about a week or 2 after discharge and underwent cross-sectional imaging which showed inflammatory stranding around the mesh with what appeared to be fat necrosis. Patient subsequently then followed up with thePCP once or twice and then the PCP referred her to us for chronic abdominal pain. Patient denies having any abdominal pain prior to hernia repair. In regards to her chest discomfort, she states that she has some burning and chest pain especially with spicy foods. She takes Pepto-Bismol which often relieves her symptoms. She denies any difficulty swallowing. She denies any weight loss. She had an upper endoscopy and colonoscopy in 2012 for GERD and dysphagia. Endoscopy was unremarkable at that time. She had another upper endoscopy in August 2014 with findings significant for a hiatal hernia followed by an empiric dilation to [address] [place] with no visible heme. Review of Systems: All review of systems were reviewed and negative except for those mentioned above in the HPI. PMSH: Past Medical History: Diagnosis Date ??? Anemia on iron ??? Ankle swelling ??? Arthritis all over ??? Asthma ??? Cancer (HCC) OVARIAN ??? Clotting disorder (HCC) ??? Diabetes mellitus (HCC) 2013 borderline, type 2 ??? Fibromyalgia ??? Heartburn [...] ; Surgeon: Christa Chavez MD; Location: [facility]; Service: General ??? CARDIAC CATHETERIZATION 04/2015 ??? CHOLECYSTECTOMY 1989 ??? COLONOSCOPY ??? COLONOSCOPY 02/17/2013 Surgeon: Garett Holt MD; Location: [facility]; Service: ??? DENTAL SURGERY upper and lower teeth removed ??? UPPER GASTROINTESTINAL ENDOSCOPY ??? UPPER GASTROINTESTINAL ENDOSCOPY 02/17/2013 Surgeon: Garett Holt MD; Location: [facility]; Service: ??? VENTRAL HERNIA REPAIR N/A 04/18/2020 [facility]INCI ROBOTIC VENTRAL HERNIA REPAIR WITH MESH ; Surgeon: Regan Butts MD; Location: [facility]; Service: General Medications Current Outpatient Medications Medication Sig Dispense Refill ??? albuterol (PROVENTIL) 2.5 mg /3 mL (0.083 %) Inhl Solution for Nebulization Take 3 mL by nebulization every 4 hours as needed for Wheezing. 1 box 6 ??? amLODIPine (NORVASC) 10 mg Oral Tablet TAKE 1 TAB BY MOUTH DAILY. 90 Tab 0 ??? aspirin (ASPIRIN LOW DOSE) 81 mg Oral Tablet, Delayed Release (E.C.) Take 1 Tab by mouth daily.30 Tab 5 ??? atorvastatin (LIPITOR) 20 mg Oral Tablet TAKE 1 TABLET BY MOUTH EVERY DAY 90 Tab 10 ??? Blood-Glucose Meter Count [facility]cludes [facility] Please fill with what her ins will cover 1 Kit 0 ??? CALCIUM ORAL Take 1 Tab by mouth daily. ??? celecoxib (CELEBREX) 200 mg Oral Capsule Take 1 Cap by mouth daily. 30 Cap 5 ??? cholecalciferol, vitamin D3, (VITAMIN D3) 25 mcg (1,000 unit) Oral Tablet Take 1 Tab by mouth daily. 30 Tab 11 ??? docusate sodium (COLACE) 100 mg Oral Capsule Take 1 Cap by mouth 2 times daily. 60 Cap 0 ??? fluticasone propionate (FLONASE) 50 mcg/actuation Nasl Demarest, Suspension Use 1 spray(s) in eachnostril once daily 16 g 0 ??? fUROsemide (LASIX) 40 mg Oral Tablet Take 1 Tab by mouth daily as needed. 30 Tab 6 ??? lisinopriL (PRINIVIL;ZESTRIL) 20 mg Oral Tablet tablet TAKE 1 TAB BY MOUTH DAILY. 90 Tab 0 ??? loratadine (CLARITIN) 10 mg Oral Tablet Take 1 Tab by mouth daily. 63 Tab 2 ??? lubiprostone (AMITIZA) 24 mcg Oral Capsule TAKE ONE CAPSULE BY MOUTH TWICE A DAY. THIS REPLACESLINZESS. 126 Cap 2 ??? metFORMIN (GLUCOPHAGE) 500 mg Oral Tablet TAKE 1 TAB BY MOUTH DAILY (WITH BREAKFAST). 90 Tab 0 ??? ondansetron (ZOFRAN-ODT) 4 mg Oral Tablet, Rapid Dissolve Take 1 Tab by mouth every 6 hours. 20Tab 2 ??? oxybutynin (DITROPAN-XL) 10 mg Oral Tablet Extended Rel 24 hr Take 1 Tab by mouth 2 times daily. 180 Tab 0 ??? oxyCODONE-acetaminophen (PERCOCET) 5-325 mg Oral Tablet Take 1-2 Tabs by mouth every 4 hours asneeded for Major Surgery/Trauma (G89.18). May take 1-2 tablets every 4 hours as needed for pain ??? omeprazole (PRILOSEC) 40 mg Oral Capsule, Delayed Release(E.C.) Take 1 Cap by mouth 2 times daily. 60 Cap 2 No current facility-administered medications for this visit. Allergy: Allergies Allergen Reactions ??? Amitriptyline Nausea And [...] on file Occupational History ??? Occupation: disabled Social Needs ??? Financial resource strain: Not on file ??? Food insecurity Worry: Not on file Inability: Not on file ??? Transportation needs Medical: Not on file Non-medical: Not on file Tobacco Use ??? Smoking status: Former Smoker Packs/day: 1.50 Years: 12.00 Pack years: 18.00 Types: Cigarettes Start date: 01/24/1972 Quit date: 01/24/1984 Years since quittin.5 ??? Smokeless tobacco: Never Used Substance and Sexual Activity ??? Alcohol use: No Alcohol/week: 0.0 oz ??? Drug use: No ??? Sexual activity: Yes Partners: Male control/protection: Post-menopausal Lifestyle ??? Physical activity Days per week: Not on file Minutes per session: Not on file ??? Stress: Not on file Relationships ??? Social connections Talks on phone: Not on file Gets together: Not on file Attends episcopalian service: Not on file Active member of club or organization: Not on file Attends meetings of clubs or organizations: Not on file Relationship status: Not on file ??? Intimate partner violence Fear of current or ex partner: Not on file Emotionally abused: Not on file Physically abused: Not on file Forced sexual activity: Not on file Other Topics Concern ??? Not on file Social History Narrative ??? Not on file BP 118/64 (BP Location: Left arm, Patient Position: Sitting) Pulse 79 Temp 97.9 ??F (36.6 ??C) (Forehead) Ht 5' 4 (1.626 m) Wt 249 lb 12.8 oz (113.3 kg) BMI 42.88 kg/m?? Physical Exam Constitutional: General: She is not in acute distress. Appearance: Normal appearance. She is obese. She is not ill-appearing. HENT: Head: Normocephalic and atraumatic. Eyes: Extraocular Movements: Extraocular movements intact. Pupils: Pupils are equal, round, and reactive to light. Neck: Musculoskeletal: Normal range of motion and neck supple. Abdominal: General: There is no distension. Palpations: Abdomen is soft. Tenderness: There is abdominal tenderness. There is no guarding. Musculoskeletal: Normal range of motion. Skin: General: Skin is warm. Coloration: Skin is not jaundiced. Neurological: General: No focal deficit present. Mental Status: She is alert and oriented to person, place, and time. Psychiatric: Mood and Affect: Mood normal. Behavior: Behavior normal. Laboratory: Lab Results Component Value Date WBC 9.5 05/18/2020 HGB 11.0 (L) 05/18/2020 HCT 34.2 (L) 05/18/2020 MCV 83.0 05/18/2020 PLT 227 05/18/2020 Lab Results Component Value Date ALT 13 05/18/2020 AST 16 05/18/2020 ALKPHOS 89 05/18/2020 BILIDIR <0.2 11/08/2014 PROT 7.7 05/18/2020 LIPASE 29 05/18/2020 Lab Results Component Value Date CREATININE 0.71 05/18/2020 BUN 16 05/18/2020 NA 141 05/18/2020 K 4.1 05/18/2020 CL 102 05/18/2020 CO2 27 05/18/2020 No results found for: INR, PROTIME Imaging: No results found for this or any previous visit. No results found for this or any previous visit. No results found for this or any previous visit. Assessment/Plan 1. Periumbilical abdominal pain - AMB REFERRAL TO GENERAL SURGERY - AMB EGD W ANESTH COMM ORDER 65-year-old female with multiple medical comorbidities who essentially presents to us for further evaluation of periumbilical abdominal discomfort that began after a repair of an incarcerated ventralhernia back in May with subsequent imaging showing stranding around the mesh concerning for possible fat necrosis. Patient symptoms essentially appeared to be a postoperative issue rather than a gastrointestinal issue especially as she has no issues with abdominal pain prior to the surgery. I have asked her to follow back with her surgeon who initially performed the procedure for any additional recommendations were therapeutic guidance. In regards to her chest discomfort, this appears to be from acid reflux especially given that it istriggered by spicy foods. She has no alarm signs or symptoms. However, given the persistent nature of symptoms and variable response to antacid therapy, we will schedule her for an upper endoscopy for further evaluation. I have also asked her to double her PPI to 40 mg twice daily. RTC 3 months Thank you Cristiane Shirley MD for asking me to see Alyssa Jamil in consultation This note was generated by [employer] Recognition technology. It has been reviewed by the undersigned, however, may still contain unintended errors. Jomar Kim MD Public Health Social Worker [facility] [phone] documented in this encounter Plan of Treatment Upcoming Encounters Date Type Department Care Team (Late st Contact Info) Description 07/29/2024 9:00 AM EST Appointment [facility] [address] [place] [address] Jomar Kim MD [address] [place] [address] documented as of this encounter Goals Goal Patient Goal Type Associated Problems Recent Progress Patient-Stated? Author Blood Pressure < 140/90 Blood Pressure 110/72(04/27 2:44 PM EDT) No Rachel Rogers, RMA BMI (Calculated) < 30 General 50.9( 2:44 PM EDT) No Rachel Rogers RMA Eat better, exercise, reach an ideal body weight General No Ni Clinton, insurance case manager Healing General On track(2018 9:18 AM EDT) [...] neuropathy weekly. ?? Refer to PCP and/or Allocation Analyst, Vascular Specialist as indicated. ?? Monitor patient compliance with wound care, diabetes management and proper offloading. Stay Tobacco Free Lifestyle On track(2020 10:23 AM EDT) No Wendy Espinoza LPN HEMOGLOBIN A1C < 7.0 Result Component 5.6(11/09/19 24 3:04 PM EST) No Rachel Rogers RMA documented as of this encounter Procedures Procedure Name Priority Date/Time Associated Diagnosis Comments ED EGD Routine 07/26/2020 9:40 AM EST PATHOLOGY TISSUE REQUEST Routine 020 9:24 AM EST Periumbilical abdominal pain ESOPHAGOGASTRODUODENOSCOPY (ANESTHESIA) 07/26/2020 9:18 AM EST Periumbilical abdominal pain documented in this encounter Results * ED EGD (07/26/2020 9:40 AM EST) 07/26/2020 9:40 AM EST Impressions [facility] - 07/26/2020 9:32 AM EST Normal esophagus. Normal stomach. Normal duodenum. Plan: - No findings to account for her symptoms. - Biopsies obtained to r/o H. Pylori. - Will f/u with surgery. - Pictures could not be obtained today due to technical issues with the software. This section is an excerpt of the full report. us Jomar Kim MD GI PROCEDURE ORDERABLES Edit ed Result - Final [facility] [address] [facility] [place] [address] * PATHOLOGY TISSUE REQUEST (07/26/2020 9:24 AM EST) CASE REPORT Surgical Pathology ?Case: [id number] ? Authorizing Provider: ??Jomar Kim MD ?Collected: ? 07/26/2020 0924 ? Ordering Location: ? [facility] ?Received: ?07/27/2020 0820 ? Pathologist: ? Deepti Downey MD ? Specimen: ?Gastric, gastric biopsy ? 07/27/2020 2:32 PM EST [facility] FINAL DIAGNOSIS Stomach, biopsy: - Oxyntic type mucosa within normal limits. 07/27/2020 2:32 PM EST [facility] OSCOPIC DESCRIPTION Microscopic examination is performed and the findings corroborate the diagnosis. 07/27/2020 2:32 PM EST [facility] EMBEDDED IMAGES 07/27/2020 2:32 PM EST [facility] GROSS DESCRIPTION Received in formalin labeled with the patient? s name and ? gastric biopsy? are three fragments of truong tissue ranging from 0.2 to 0.4 cm in greatest dimension. Entirely submitted in one cassette. /TE 07/27/2020 2:32 PM EST [facility] Tissue GASTRIC / Unknown 07/26/2020 9:24 AM EST 07/27/2020 8:20 AM EST us Jomar Kim MD PATHOLOGY ORDERABLES Final R esult [facility] [address] [place] [address] documented in this encounter Visit Diagnoses Diagnosis Periumbilical abdominal pain- Primary Abdominal pain, periumbilic Periumbilical abdominal pain Abdominal pain, periumbilic documented in this encounter Admitting Diagnoses Diagnosis Periumbilical abdominal pain Abdominal pain, periumbilic documented in this encounter Administered Medications Inactive Administered Medications - up to 1 most recent administrations Medication Order MAR Action Action Date Dose Rate Site lactated ringers infusion Intravenous, at 100 mL/hr, PREPROCEDURE CONTINUOUS, Starting on Fri07/25/20 at 0935, Until Fri07/26/20 at 1443, To be given in SDS/Pre-op Holding Area, Pre-op (Holding/SDS Meds) New Bag 07/26/2020 9:17 AM EST ondansetron (ZOFRAN) injection 4 mg 4 mg, Intravenous, PRN, 1 dose, Starting on Fri07/26/20 at 0934, Until Fri07/26/20 at 1443, Nausea, PACU ondansetron (ZOFRAN-ODT) disintegrating tablet 8 mg 8 mg, Oral, PRN, 1 dose, Starting on Fri07/26/20 at 0934, Until Fri07/26/20 at 1443, Nausea, Dissolve in mouth, PACU promethazine (PHENERGAN) 12.5 mg in sodium chloride 10 mL injection 12.5 mg, Intravenous, PRN, 2 doses, Starting on Fri07/26/20 at 0934, Until Fri07/26/20 at 1443, Nausea, For persistent nausea unrelieved by other antiemetics. Begin with lowest dose unless otherwise directed. Give remainder of dose if nausea unrelieved in 20 minutes. Not to exceed 25 mg in one hour unless otherwise ordered by Anesthesia Coordinator. VESICANT , PACU promethazine (PHENERGAN) 6.25 mg in sodium chloride 10 mL injection 6.25 mg, Intravenous, PRN, 2 doses, Starting on Fri07/26/20 at 0934, Until Fri07/26/20 at 1443, Nausea, For persistent nausea unrelieved by other antiemetics. Begin with lowest dose unless otherwise directed. Give remainder of dose if nausea unrelieved in 20 minutes. Not to exceed 25 mg in one hour unless otherwise ordered by Anesthesia Coordinator. VESICANT , PACU documented in this encounter Active and Recently Administered Medications Times are shown in EST. Scheduled Medication Order 07/24/2020 07/25/2020 07/26/2020 acetaminophen (OFIRMEV) infusion 1,000 mg 1,000 mg, Intravenous, ONCE, 1 dose, On Fri07/26/20 at 0945, Administer over 15 Minutes, Do not give if patient received acetaminophen within the last 6 hours Maximum adult dose of acetaminophen is 4000 mg from all sources in 24 hours. , PACU 0945 (Due) PRN Medication Order 07/24/2020 07/25/2020 07/26/2020 dimenhyDRINATE (DRAMAMINE) injection 12.5-25 mg 12.5-25 mg, Intravenous, PRN, 2 doses, Starting on Fri07/26/20 at 0934, Until Fri07/26/20 at 1443, Nausea, For nausea unrelieved by ondansetron or pre-op granisetron. Begin with lowest dose unless otherwise directed. Give remainder of dose if nausea unrelieved in 20 minutes., PACU lactated ringers infusion Intravenous, at 100 mL/hr, PREPROCEDURE CONTINUOUS, Starting on Fri07/25/20 at 0935, Until Fri07/26/20 at 1443, To be given in SDS/Pre-op Holding Area, Pre-op (Holding/SDS Meds) 0917 (New Bag - Prov ider: Byron Centeno DO) ondansetron (ZOFRAN) injection 4 mg(Linked Group 1) 4 mg, Intravenous, PRN, 1 dose, Starting on Fri07/26/20 at 0934, Until Fri07/26/20 at 1443, Nausea, PACU ondansetron (ZOFRAN-ODT) disintegrating tablet 8 mg(Linked Group 1) 8 mg, Oral, PRN, 1 dose, Starting on Fri07/26/20 at 0934, Until Fri07/26/20 at 1443, Nausea, Dissolve in mouth, PACU promethazine (PHENERGAN) 12.5 mg in sodium chloride 10 mL injection(Linked Group 2) 12.5 mg, Intravenous, PRN, 2 doses, Starting on Fri07/26/20 at 0934, Until Fri07/26/20 at 1443, Nausea, For persistent nausea unrelieved by other antiemetics. Begin with lowest dose unless otherwise directed. Give remainder of dose if nausea unrelieved in 20 minutes. Not to exceed 25 mg in one hour unless otherwise ordered by Anesthesia Coordinator. VESICANT , PACU promethazine (PHENERGAN) 6.25 mg in sodium chloride 10 mL injection(Linked Group 2) 6.25 mg, Intravenous, PRN, 2 doses, Starting on Fri07/26/20 at 0934, Until Fri07/26/20 at 1443, Nausea, For persistent nausea unrelieved by other antiemetics. Begin with lowest dose unless otherwise directed. Give remainder of dose if nausea unrelieved in 20 minutes. Not to exceed 25 mg in one hour unless otherwise ordered by Anesthesia Coordinator. VESICANT , PACU Linked Groups Order Group 1: ondansetron (ZOFRAN) injection 4 mgJump to med 4 mg, Intravenous, PRN, 1 dose, Starting on Fri07/26/20 at 0934, Until Fri07/26/20 at 1443, Nausea, PACU Or ondansetron (ZOFRAN-ODT) disintegrating tablet 8 mgJump to med 8 mg, Oral, PRN, 1 dose, Starting on Fri07/26/20 at 0934, Until Fri07/26/20 at 1443, Nausea, Dissolve in mouth, PACU Group 2: promethazine (PHENERGAN) 6.25 mg in sodium chloride 10 mL injectionJump to med 6.25 mg, Intravenous, PRN, 2 doses, Starting on Fri07/26/20 at 0934, Until Fri07/26/20 at 1443, Nausea, For persistent nausea unrelieved by other antiemetics. Begin with lowest dose unless otherwise directed. Give remainder of dose if nausea unrelieved in 20 minutes. Not to exceed 25 mg in one hour unless otherwise ordered by Anesthesia Coordinator. VESICANT , PACU Or promethazine (PHENERGAN) 12.5 mg in sodium chloride 10 mL injectionJump to med 12.5 mg, Intravenous, PRN, 2 doses, Starting on Fri07/26/20 at 0934, Until Fri07/26/20 at 1443, Nausea, For persistent nausea unrelieved by other antiemetics. Begin with lowest dose unless otherwise directed. Give remainder of dose if nausea unrelieved in 20 minutes. Not to exceed 25 mg in one hour unless otherwise ordered by Anesthesia Coordinator. VESICANT , PACU documented in this encounter Orders Medications Ordered That Edwin ht Not Have Been Administered Count Last Ordered Date First Ordered Date acetaminophen (OFIRMEV) infusion 1,000 mg 1 07/26/2020 dimenhyDRINATE (DRAMAMINE) i njection 12.5-25 mg 1 07/26/2020 ondansetron (ZOFRAN) injection 4 mg 1 07/26 ondansetron (ZOFRAN-ODT) dis integrating tablet 8 mg 1 07/26/2020 promethazine (PHENERGAN) 12. 5 mg in sodium chloride 10 mL injection 1 07/26/2020 promethazine (PHENERGAN) 6.2 5 mg in sodium chloride 10 mL injection 1 07/26/2020 lactated ringers infusion 1 07/25/2020 Discharge Count Last Ordered Date First Orde red Date DISCHARGE PATIENT 1 07/26/2020 documented in this encounter Care Teams Pl Sql Programmer Relationship Specialty Start Date End Date Cristiane Shirley MD [address] [place] [address] PCP - General Family Medicine 08/20/18 12/29/23 Garett Holt MD Internal Medicine-Gastroenterolog y 12/22/12 Ruiz Stokes MD [address] [id number] Internal Medicine-Cardiovascular Disease 07/25/14 Yenny Schwab MD [address] [place] [address] Internal Medicine-Rheumatology 12/11/16 Joselyn Chance, RN Mold Cooler Registered Nurse 05/05/20 03/08/21 documented as of this encounter
--- OUTSIDE RECORDS SUMMARY | 2024-07-22 16:05 | XMS_ITS | Encounter Summary ---
Author Organization [place] [address] Care Team Providers Care Carton Forming Machine Adjuster Name Role Phone Garett Holt MD Unavailable Ruiz Stokes MD Unavailable [phone] Yenny Schwab MD Unavailable [phone] Cristiane Shirley MD Primary Care Provider [phone] Joselyn Chance RN Unavailable Unavail able Reason for Visit * Reason Onset Date Comments Referral 08/01/2020 Encounter Details Date Type Department Care Team (Late st Contact Info) Description 08/01/2020 Telephone SEP Gastro [facility] [address] [address] Jomar Kim MD [address] [place] [address] Referral Social History Tobacco Use Types Packs/Day [...] encounter Miscellaneous Notes * Telephone Encounter - Mary Muller LPN - 08/01/2020 2:30 PM EST S/w Lucian from Dr. Butts's office. She states she doesn't see any notes regarding why he won't see her. She will contact Dr. Butts then reach out to patient. * Telephone Encounter - Mary Muller LPN - 08/01/2020 2:17 PM EST S/w spouse Alban and he said Dr. Butts's nurse stated he won't see her. I left a message for someone from Dr. Butts's office to call me to see exactly why. * Telephone Encounter - Coco Arevalo RMA - 08/01/2020 12:59 PM EST Called the patient to give her her EGD path results, normal. She said that she was referred by Dr. Kim to see Dr. Regan Butts, surgeon about her hernia. She said that she was told by that office that Dr. Butts did not want to see her that she would have to see another doctor. Sending this message to the nurse and to call the patient back. documented in this encounter Plan of Treatment Upcoming Encounters Date Type Department Care Team (Late st Contact Info) Description 07/29/2024 9:00 AM EST Appointment [facility] [address] [place] [address] Jomar Kim MD [address] [place] [address] documented as of this encounter Goals Goal Patient Goal Type Associated Problems Recent Progress Patient-Stated? Author Blood Pressure < 140/90 Blood Pressure 110/72(04/27 2:44 PM EDT) No Rachel Rogers RMA BMI (Calculated) < 30 General 50.9( 2:44 PM EDT) No Rachel Rogers RMA Eat better, exercise, reach an ideal body weight General No Ni Clinton, battery repairer Healing General On track(2018 9:18 AM EDT) [...] neuropathy weekly. ?? Refer to PCP and/or Garland Machine Operator, Vascular Specialist as indicated. ?? Monitor patient compliance with wound care, diabetes management and proper offloading. Stay Tobacco Free Lifestyle On track(2020 10:23 AM EDT) Wendy Moon LPN HEMOGLOBIN A1C < 7.0 Result Component 5.6(11/09/19 3:04 PM EST) Rachel Regan RMA documented as of this encounter Visit Diagnoses Not on filedocumented in this encounter Care Teams Carton Forming Machine Adjuster Relationship Specialty Start Date End Date Cristiane Shirley MD [address] [place] [address] PCP - General Family Medicine 08/20/18 12/29/23 Garett Holt MD Internal Medicine-Gastroenterolog y 12/22/12 Ruiz Stokes MD [address] [place] [address] Internal Medicine-Cardiovascular Disease 07/25/14 Yenny Schwab MD [address] [facility] [address] [place] [address] Internal Medicine-Rheumatology 12/11/16 Joselyn Chance, RN Vp Global Marketing [employer] Registered Nurse 05/05/20 03/08/21 documented as of this encounter
--- OUTSIDE RECORDS SUMMARY | 2024-07-22 16:05 | XMS_ITS | Encounter Summary ---
Author Organization [place] [address] Care Team Providers Care Subacute Nurse Name Role Phone Garett Holt MD Unavailable [phone] Ruiz Stokes MD Unavailable [phone] Yenny Schwab MD Unavailable [phone] Cristiane Shirley MD Primary Care Provider [phone] Joselyn Chance RN Unavailable Unavail able Reason for Visit * Auth/Cert/Inpt Specialty Diagnoses / Procedures Referred By Contac t Referred To Contact Diagnoses Periumbilical abdominal pain Periumbilical abdominal pain [R10.33] Procedures [place] EGD TRANSORAL BIOPSY SINGLE/MULTIPLE ESOPHAGOGASTRODUODENOSCOPY Referral ID Status Reason Start Date Expiration Date Visits Re quested Visits Authorized [id number] 1 1 Encounter Details Date Type Department Care Team (Latest Contact Info) Description 07/26/2020 8:21 AM EST - 07/26/2020 10:43 AM EST Hospital Encounter [facility] [address] [place] [address] Jomar Kim MD [address] [place] [address] Periumbilical abdominal pain; Periumbilical abdominal pain Discharge Disposition: Home or Self [...] Date Author No 01/23/2019 9:05 AM Nitin Rider, PLATE PAINTER documented in this encounter Discharge Instructions * Discharge Instructions* Raulito Conner - 07/26/2020 9:36 AM EST [facility] Discharge Instructions - Following Anesthesia We appreciate [...] our office at . Get [facility] Soon! [facility] Discharge Instructions - Following Endoscopy 1. A [...] family ADDITIONAL INSTRUCTIONS: Call Dr. Kim at [phone] if the following occurs: EGD: Abdominal pains, [...] 1 fluticasone propionate (FLONASE) 50 mcg/actuation Nasl [place], SuspensionIndicati ons:ETD (Eustachian tube dysfunction), right Use [...] Code Departure Means Destination Home or Self Prison documented in this encounter H&P Notes * [...] with the patient or their legally authorized data entry representative. The patient's pre-procedure physical assessment indicates that [...] Kim MD - 07/18/2020 3:30 PM EST [facility] Gastroenterology Consult Note Primary Care Physician: Cristiane Shirley MD Reason for referral: Abdominal Pain, Diarrhea, and Nausea History of Presenting Illness Alyssa Jamil is a(n) 65 y.o. female asked to see us in consultation by Cristiane Shirley MD for evaluation of kathi umbilical pain and chest pain. 65-year-old female [...] followed by an empiric dilation to 54 [address] with no visible heme. Review of Systems: [...] BIOPSY ; Surgeon: Christa Chavez MD; Location: [facility] OR; Service: General ??? CARDIAC CATHETERIZATION 04/2015 ??? CHOLECYSTECTOMY 1989 ??? COLONOSCOPY ??? COLONOSCOPY 02/17/2013 Surgeon: Garett Holt MD; Location: [facility]; Service: ??? DENTAL SURGERY upper and lower teeth removed ??? UPPER GASTROINTESTINAL ENDOSCOPY ??? UPPER GASTROINTESTINAL ENDOSCOPY 02/17/2013 Surgeon: Garett Holt MD; Location: [facility]; Service: ??? VENTRAL HERNIA REPAIR N/A 04/18/2020 DAVINCI ROBOTIC VENTRAL HERNIA REPAIR WITH MESH ; Surgeon: Regan Butts MD; Location: [facility]; Service: General Medications Current Outpatient Medications [...] DAY 90 Tab 10 ??? Blood-Glucose Meter Misc Kit Please fill [...] ??? fluticasone propionate (FLONASE) 50 mcg/actuation Nasl [place], Suspension Use 1 spray(s) in eachnostril once [...] file Gets together: Not on file Attends scientology service: Not on file Active member of [...] She is obese. She is not ill-appearing. HALEIGHT: Head: Normocephalic and atraumatic. Eyes: Extraocular Movements: [...] in consultation This note was generated by [employer] Voice Recognition technology. It has been reviewed by the undersigned, however, may still contain unintended errors. Jomar Kim MD Machine Tech [facility] [phone] documented in this encounter Plan of Treatment Upcoming Encounters Date Type Department Care Team (Late st Contact Info) Description 07/29/2024 9:00 AM EST Appointment [facility] [address] [facility] [place] [address] Jomar Kim MD [address] [place], [place] [id number] documented as of this encounter Goals Goal Patient Goal Type Associated Problems Recent Progress Patient-Stated? Author Blood Pressure < 140/90 Blood Pressure 110/72(04/27 2:44 PM EDT) No Rachel Rogers RMA BMI (Calculated) < 30 General 50.9( 024 2:44 PM EDT) No Rachel Rogers RMA Eat better, exercise, reach an ideal body weight General No Ni Clinton, experimental aircraft mechanic Healing General On track(2018 9:18 AM EDT) [...] neuropathy weekly. ?? Refer to PCP and/or Grinder Needle Tip, Vascular Specialist as indicated. ?? Monitor patient compliance with wound care, diabetes management and proper offloading. Stay Tobacco Free Lifestyle On track(2020 10:23 AM EDT) No Wendy Espinoza LPN HEMOGLOBIN A1C < 7.0 Result Component 5.6(11/09/19 3:04 PM EST) No Rachel Rogers RMA [...] AM EST) 07/26/2020 9:40 AM EST Impressions [facility] - 07/26/2020 9:32 AM [...] PROCEDURE ORDERABLES Edit ed Result - Final [facility] [address] [place] [address] * PATHOLOGY TISSUE REQUEST (07/26/2020 9:24 AM EST) CASE REPORT Surgical Pathology ?Case: [id number] ? Authorizing Provider: ??Jomar Kim MD ?Collected: ? 07/26/2020 0924 ? Ordering Location: ? [facility] ?Received: ?07/27/2020 0820 ? Pathologist: ? Deepti Downey MD ? Specimen: ?Gastric, gastric biopsy ? 07/27/2020 2:32 PM EST [facility] FINAL DIAGNOSIS Stomach, biopsy: - Oxyntic type mucosa within normal limits. 07/27/2020 2:32 PM EST [facility] OSCOPIC DESCRIPTION Microscopic examination is performed and the findings corroborate the diagnosis. 07/27/2020 2:32 PM EST [facility] EMBEDDED IMAGES 07/27/2020 2:32 PM [facility] GROSS DESCRIPTION Received in formalin labeled with the patient? s name and ? gastric biopsy? are three fragments of truong tissue ranging from 0.2 to 0.4 cm in greatest dimension. Entirely submitted in one cassette. /TE 07/27/2020 2:32 PM EST [facility] Tissue GASTRIC / Unknown 07/26/2020 9:24 AM EST 07/27/2020 8:20 AM EST us Jomar Kim MD PATHOLOGY ORDERABLES Final R esult [facility] [address] [place] [address] documented in this encounter Visit Diagnoses Diagnosis Periumbilical abdominal pain- Primary Abdominal pain, periumbilic documented in this encounter [...] 07/26/2020 documented in this encounter Care Teams Subacute Nurse Relationship Specialty Start Date End Date Cristiane Shirley MD [address] [place] [address] PCP - General Family Medicine 08/20/18 12/29/23 Garett Holt MD Internal Medicine-Gastroenterolog y 12/22/12 Ruiz Stokes MD [address] [place] [address] Internal Medicine-Cardiovascular Disease 07/25/14 Yenny Schwab MD [address] [facility] [address] [place] [address] Internal Medicine-Rheumatology 12/11/16 Joselyn Chance, RN Merchandise Pickup/Receiving Associate Registered Nurse 05/05/20 03/08/21 documented as of this encounter
--- OUTSIDE RECORDS SUMMARY | 2024-07-22 16:05 | XMS_ITS | Encounter Summary ---
Author Organization [place] [address] Care Team Providers Care Research And Evaluation Manager Name Role Phone Garett Holt MD Unavailable [phone] Ruiz Stokes MD Unavailable [phone] Yenny Schwab MD Unavailable [phone] Cristiane Shirley MD Primary Care Provider [phone] Joselyn Chance RN Unavailable Unavail able Nuria Gonzalez BA, COS Unavailable Unavailable Reason for Referral * Consultation (Routine) - Closed Specialty Diagnoses / Procedures Referred By Contac t Referred To Contact Primary Care Diagnoses Type 2 diabetes mellitus without complication, without long-term current use of insulin (HCC) Cristiane Shirley MD Phone: tel: fax: [facility] [employer] [address] [place] [address] Phone: tel: fax: Referral ID Status Reason Start Date Expiration Date Visits Re quested Visits Authorized [id number] Closed 06/14/2020 06/14/2021 99 99 Question Answer Reason for Referral Transportation - pt states this is an ongoing issue for her. She would like to schedule mammogram but is unable to due to transportation. Reason for Visit * Reason Onset Date Comments Central Patient Navigator Outreach 06/14/2020 mammo Encounter Details Date Type Department Care Team (Late st Contact Info) Description 06/14/2020 Patient Outreach [facility] [address] [place] [address] Cristiane Shirley MD [address] [place] [address] Central Patient Navigator Outreach (mammo) Social History [...] documented in this encounter Progress Notes * Nunu Leroy RN - 06/27/2020 3:47 PM EDT Patient Outreach: Care Gap Outreach Attempt Count: 2nd Care Gaps Addressed nurse consultant: Flu Shot and Mammogram Outcome: Called back to offer to schedule pt at [facility]. states she is not willing at this time due to the pain it causes. I encouraged him to have her call back if she decides she wouldlike to go through with it. * Nunu Leroy RN - 06/14/2020 1:02 PM EDT Patient Outreach: Care Gap Outreach Attempt Count: 1st Care Gaps Addressed nurse consultant: Flu Shot and Mammogram Outcome: Patient declined, states transportation is an ongoing issue, she would like to schedule mammogram but is unable to find a ride. CM referral placed for transportation advised her that if theyare able to accommodate transportation to [facility] to give us a call back and we would be happy to schedule. documented in this encounter Plan of Treatment Upcoming Encounters Date Type Department Care Team (Late st Contact Info) Description 07/29/2024 9:00 AM EST Appointment [facility] [address] [place] [address] Jomar Kim MD [address] [place] [address] Scheduled Referrals Name Type Priority Associated Diagnoses Order Schedule AMB REFERRAL TO CARE MANAGEMENT Outpatient Referral Routine Type 2 diabetes mellitus without complication, without long-term current use of insulin ([facility]) Ordered: 06/14/2020 documented as of this encounter Goals Goal Patient Goal Type Associated Problems Recent Progress Patient-Stated? Author Blood Pressure < 140/90 Blood Pressure 110/72(04/27 2:44 PM EDT) No Rachel Rogers RMA BMI (Calculated) < 30 General 50.9( 024 2:44 PM EDT) No Rachel Rogers RMA Eat better, exercise, reach an ideal body weight General No Ni Clinton, chemistry professor Healing General On track(2018 9:18 AM EDT) [...] neuropathy weekly. ?? Refer to PCP and/or Lay Out Technician, Vascular Specialist as indicated. ?? Monitor [...] insulin (HCC)- Primary documented in this encounter Care Teams Research And Evaluation Manager Relationship Specialty Start Date End Date Cristiane Shirley MD [address] [place], [place] [id number] PCP - General Family Medicine 08/20/18 12/29/23 Garett Holt MD Internal Medicine-Gastroentero logy 12/22/12 Ruiz Stokes MD [address] [place], [place] [id number] Internal Medicine-Cardiovascul ar Disease 07/25/14 Yenny Schwab MD [address] [facility] [address] [id number] Internal Medicine-Rheumatology 12/11/16 Joselyn Chance, RN Computer Forensic Examiner Registered Nurse 05/05/20 03/08/21 Nuria Gonzalez BA, COS Case Slate Picker 06/15/20 06/15/20 documented as of this encounter
--- OUTSIDE RECORDS SUMMARY | 2024-07-22 16:05 | XMS_ITS | Encounter Summary ---
Author Organization [place] [address] Care Team Providers Care Applications Developer Name Role Phone Garett Holt MD Unavailable [phone] Ruiz Stokes MD Unavailable [phone] Yenny Schwab MD Unavailable [phone] Cristiane Shirley MD Primary Care Provider [phone] Joselyn Chance RN Unavailable Unavail able Reason for Visit * Reason Comments Care Management - Face To Face CM- Longitudinal Continued Encounter Details Date Type Department Care Team (Late st Contact Info) Description 05/25/2020 10:30 AM EDT Office Visit [facility] [address] [place] [address] Joselyn Chance, RN Enrolled in chronic care management (Primary [...] of Assessment Author No 09/14/2019 10:05 AM DARLINE Brynn Morgan RMA documented as of this encounter Mental Status * Because of a physical, mental or emotional condition, does this person have serious difficulty concentrating, remembering or making decisions? Answer Entry Date Author No 01/23/2019 9:05 AM EDT Nitin Yousif CMA documented in this encounter Progress Notes * Joselyn Chance RN - 05/25/2020 10:30 AM EDT Assessment: - Pt presents today for Annual Physical Exam with . - requests RN CC provide patient with Glucerna samples as patient is post op from hernia repair and would benefit from this product. - Patient symptoms/complaints: o Patient reports she has been having intermittent vomting and left sided abdominal pain. Patient reports the pain is most intense when going from seated to standing position. Patient rates pain at an 8 on numeric scale during those times. Patient further reports her urine has been white and she has had both pus and blood when wiping.Patient denies having pain with urination and reports she has itching. MA in room and reports patient will be providing a urine sample for UA to be completed. Education/handouts: - Educated patient on RN CC role in PCP office as previous follow up was completed with Alban who is listed on the [facility]. - Interventions or Referrals completed include: RN CC provided patient with samples of Chocolate and Sidney Glucerna. RN CC inquired about outcome of referral to [facility] and patient reports they [place] to receive. - MyChart already active and access confirmed with patient. Goals: Goals ? ? Blood Pressure < 140/90 ? ? BMI (Calculated) < 30 ??? Eat better, exercise, reach an ideal body weight ? ? HEMOGLOBIN A1C < 7.0 ??? Stay Tobacco Free ??? Wound Healing Wound volume reduction goals ?? 50% by [...] lab and appropriate dressing to maintain microenvironment conduciveto healing. ?? Assess for signs and symptoms of peripheral neuropathy weekly. ?? Refer to PCP and/or Electric Motor Repairing Supervisor, Vascular Specialist as indicated. ?? Monitor patient compliance with wound care, diabetes management and proper offloading. Next Steps: - Real Estate Representative contact information given / reviewed - Real Estate Representative will continue to care manage patient documented in this encounter Plan of Treatment Upcoming Encounters Date Type Department Care Team (Late st Contact Info) Description 07/29/2024 9:00 AM EST Appointment [facility] [address] [place] [id number] Jomar Kim MD [address] [facility] [address] documented as of this encounter Goals Goal Patient Goal Type Associated Problems Recent Progress Patient-Stated? Author Blood Pressure < 140/90 Blood Pressure 110/72(04/27 2:44 PM EDT) No Rachel Rogers, RMA BMI (Calculated) < 30 General 50.9( 024 2:44 PM EDT) No Rachel Rogers RMA Eat better, exercise, reach an ideal body weight General No Ni Clinton, supervisor pumping station Healing General On track(2018 9:18 AM EDT) No Bessie Morse, RN [...] neuropathy weekly. ?? Refer to PCP and/or Electric Motor Repairing Supervisor, Vascular Specialist as indicated. ?? Monitor patient compliance with wound care, diabetes management and proper offloading. Stay Tobacco Free Lifestyle On track(2020 10:23 AM EDT) No Wendy Espinoza LPN HEMOGLOBIN A1C < 7.0 Result Component 5.6(03/03/20 24 3:04 PM EST) Rachel Regan, RMLeigh documented as of this encounter Visit Diagnoses Diagnosis Enrolled in chronic care management- Primary documented in this encounter Care Teams Applications Developer Relationship Specialty Start Date End Date Cristiane Shirley MD [address] [place] [address] PCP - General Family Medicine 08/20/18 12/29/23 Garett Holt MD Internal Medicine-Gastroenterolog y 12/22/12 Ruiz Stokes MD [address] [place] [address] Internal Medicine-Cardiovascular Disease 07/25/14 Yenny Schwab MD [address] [place] [address] Internal Medicine-Rheumatology 12/11/16 Joselyn Chance, RN Real Estate Representative Registered Nurse 05/05/20 03/08/21 documented as of this encounter
--- OUTSIDE RECORDS SUMMARY | 2024-07-22 16:05 | XMS_ITS | Encounter Summary ---
Author Organization [place] [address] Care Team Providers Care Bedspring Assembler Name Role Phone Garett Holt MD Unavailable [phone] Ruiz Stokes MD Unavailable [phone] Yenny Schwab MD Unavailable [phone] Cristiane Shirley MD Primary Care Provider [phone] Joselyn Chance RN Unavailable Unavail able Nuria Gonzalez BA, COS Unavailable Unavailable Reason for Visit * Reason Onset Date Comments Home Health 05/30/2020 asking to speak to Janey Encounter Details Date Type Department Care Team (Late st Contact Info) Description 05/30/2020 Telephone [facility] [address] [place] [address] Cristiane Shirley MD [address] [place] [address] Home Health (asking to speak to Janey ) Social History Tobacco Use Types Packs/Day [...] encounter Miscellaneous Notes * Telephone Encounter - Nan Ramos - 05/30/2020 11:50 AM EDT Spoke with Joshua to let her know that I was faxing records to [phone] * Telephone Encounter - Thomas Maritza Douglas - 05/30/2020 11:38 AM EDT Joshua from [facility] calling to speak to Janey. She is needing updated clinicals on patient. Please return to Joshua after 1:00 pm today. documented in this encounter Plan of Treatment Upcoming Encounters Date Type Department Care Team (Late st Contact Info) Description 07/29/2024 9:00 AM EST Appointment [facility] [address] [place], [place] [id number] Jomar Kim MD [address] [place] [address] documented as of this encounter Goals Goal Patient Goal Type Associated Problems Recent Progress Patient-Stated? Author Blood Pressure < 140/90 Blood Pressure 110/72(04/27 2:44 PM EDT) No Rachel Rogers, RMA BMI (Calculated) < 30 General 50.9( 024 2:44 PM EDT) No Rachel Rogers RMA Eat better, exercise, reach an ideal body weight General No Ni Clinton, monumental stonemason Healing General On track(2018 9:18 AM EDT) [...] neuropathy weekly. ?? Refer to PCP and/or Plum Packer, Vascular Specialist as indicated. ?? Monitor patient compliance with wound care, diabetes management and proper offloading. Stay Tobacco Free Lifestyle On track(2020 10:23 AM EDT) No Wendy Espinoza LPN HEMOGLOBIN A1C < 7.0 Result Component 5.6(11/09/19 3:04 PM EST) Rachel Regan RMA documented as of this encounter Visit Diagnoses Not on filedocumented in this encounter Care Teams Bedspring Assembler Relationship Specialty Start Date End Date Cristiane Shirley MD [address] [place] [address] PCP - General Family Medicine 08/20/18 12/29/23 Garett Holt MD Internal Medicine-Gastroentero logy 12/22/12 Ruiz Stokes MD [address] [place] [address] Internal Medicine-Cardiovascul ar Disease 07/25/14 Yenny Schwab MD [address] [facility] [address] [place] [address] Internal Medicine-Rheumatology 12/11/16 Joselyn Chance, RN Materials Associate Registered Nurse 05/05/20 03/08/21 Nuria Gonzalez BA, COS Case Community Service Representative 06/15/20 06/15/20 documented as of this encounter
--- OUTSIDE RECORDS SUMMARY | 2024-07-22 16:05 | XMS_ITS | Encounter Summary ---
Author Organization [place] [address] Care Team Providers Care Electric Tripper Machine Operator Name Role Phone Garett Holt MD Unavailable [phone] Ruiz Stokes MD Unavailable [phone] Yenny Schwab MD Unavailable [phone] Cristiane Shirley MD Primary Care Provider [phone] Joselyn Chance RN Unavailable Unavail able Reason for Referral * Consultation (Routine) - Closed Specialty Diagnoses / Procedures Referred By Contalissa t Referred To Contact Gastroenterology Diagnoses Chronic abdominal pain Weight loss Cristiane Shirley MD Phone: tel: fax: Jomar Kim MD Phone: tel: fax: Referral ID Status Reason Start Date Expiration Date Visits Re quested Visits Authorized [id number] Closed 07/07/2020 07/07/2021 99 99 Question Answer Is this referral for colon cancer screening? No Provider Options This Provider Only Reason for Visit * Reason Comments Abdominal Pain Dysuria Diarrhea Fatigue Encounter Details Date Type Department Care Team (Late st Contact Info) Description 07/07/2020 10:15 AM EDT Office Visit [facility] [address] [facility] [place] [address] Cristiane Shirley MD [address] [place] [address] UTI (urinary tract infection), uncomplicated (Primary Dx); Chronic abdominal pain; Weight loss Social History Tobacco Use Types Packs/Day Years [...] Sign Reading Time Taken Comments Blood Pressure 132/84 07/07/2020 10:20 AM EDT Pulse - - Temperature 36.6 ??C (97.9 ??F) 07/07/2020 10:20 AM E DT Respiratory Rate - - Oxygen Saturation - - Inhaled Oxygen Concentration - - Weight 102.5 kg (226 lb) 07/07/2020 10:20 AM EDT Height 162.6 cm (5' 4 ) 07/07/2020 10:20 AM EDT Body Mass Index 38.79 07/07/2020 10:20 AM EDT documented in this encounter Functional Status * Is the person deaf or does he/she have serious difficulty hearing? Answer Date of Assessment Author No 09/14/2019 10:05 AM Brynn Ross RMA * Is the person blind or does he/she have serious difficulty seeing even when wearing glasses? Answer Date of Assessment Author No 09/14/2019 10:05 AM Brynn Rsos RMA * Does this person have serious [...] Refills Last Filled Start Date End Date fluconazole (DIFLUCAN) 150 mg Oral TabletIndications:U TI (urinary tract infection), uncomplicated Take 1 Tab by mouth once for 1 dose. 1 Tab 07/07/2020 07/07/2020 cephALEXin (KEFLEX) 500 mg Oral CapsuleIndications: UTI (urinary tract infection), uncomplicated Take 1 Cap by mouth every 8 hours for 10 days. 30 Cap 07/07/2020 07/17/2020 documented in this encounter Progress Notes * Cristiane Shirley MD - 07/07/2020 10:15 AM EDT Vitals: 07/07/20 1020 BP: 132/84 Temp: 97.9 ??F (36.6 ??C) TempSrc: Tympanic Weight: 226 lb (102.5 kg) Height: 5' 4 (1.626 m) SUBJECTIVE: Chief Complaint Patient presents with ??? Abdominal Pain ??? Dysuria ??? Diarrhea ??? Fatigue HPI: Abdominal Pain This is a recurrent problem. The current episode started 1 to 4 weeks ago. The onset quality is gradual. The problem occurs intermittently. The problem is unchanged. Associated symptoms include diarrhea, dysuria and frequency. Dysuria This is a new problem. The current episode started in the past 7 days. The problem occurs every urination. The problem has been unchanged. Associated symptoms include frequency and urgency. Diarrhea This is a new problem. The current episode started yesterday. The problem occurs 2 to 4 times per day. The problem has been unchanged. Associated symptoms include abdominal pain. Pertinent negatives include no coughing. Fatigue This is a recurrent problem. The current episode started 1 to 4 weeks ago. The problem occurs constantly. The problem has been unchanged. Associated symptoms include abdominal pain and fatigue. Pertinent negatives include no coughing. Diabetes: Home reporting of sugars was reviewed at time of visit. BS are running consistent with A1c. Pt denies episodes of hypo or hyperglycemia. Alyssa does not report any new symptoms of possible diabetes sequelae. Exercise - none Antiplatelet Therapy - (goals: 75-162 mg/day for increased risk, men >50, women >60, with oneadditional risk factor - smoking, htn, obesity, albuminuria, fmhx) Patient does have aspirin or other antiplatelet agent listed on medication list. If not, encouragedto start taking and if taking, added to med list. Review of Systems Constitutional: Positive for fatigue. HENT: Negative. Respiratory: Negative for cough and wheezing. Cardiovascular: Negative. Gastrointestinal: Positive for abdominal pain and diarrhea. Genitourinary: Positive for dysuria, frequency and urgency. Musculoskeletal: Negative. Skin: Negative. Psychiatric/Behavioral: Negative. OBJECTIVE: Physical Exam Vitals signs and nursing note reviewed. HENT: Head: Normocephalic. Cardiovascular: Rate and Rhythm: Normal rate. Heart sounds: No murmur. Pulmonary: Effort: Pulmonary effort is normal. Breath sounds: No wheezing. Abdominal: Palpations: Abdomen is soft. Tenderness: There is no abdominal tenderness. Skin: General: Skin is warm. Neurological: General: No focal deficit present. Mental Status: She is alert. Assessment Diagnoses and all orders for this visit: UTI (urinary tract infection), uncomplicated - cephALEXin (KEFLEX) 500 mg Oral Capsule; Take 1 Cap by mouth every 8 hours for 10 days. Dispense:30 Cap; Refill: 0 - fluconazole (DIFLUCAN) 150 mg Oral Tablet; Take 1 Tab by mouth once for 1 dose. Dispense: 1 Tab; Refill: 0 Chronic abdominal pain - AMB REFERRAL TO GASTROENTEROLOGY Weight loss - AMB REFERRAL TO GASTROENTEROLOGY documented in this encounter Plan of Treatment Upcoming Encounters Date Type Department Care Team (Late st Contact Info) Description 07/29/2024 9:00 AM EST Appointment [facility] [address] [place] [id number] Jomar Kim MD [address] [place] [address] Scheduled Referrals Name Type Priority Associated Diagnoses Order Schedule AMB REFERRAL TO GASTROENTEROLOGY Outpatient Referral Routine Chronic abdominal pain Weight loss Ordered: 07/07/2020 documented as of this encounter Goals Goal Patient Goal Type Associated Problems Recent Progress Patient-Stated? Author Blood Pressure < 140/90 Blood Pressure 110/72(04/27 2:44 PM EDT) No Rachel Rogers RMA BMI (Calculated) < 30 General 50.9( 2:44 PM EDT) No Rachel Rogers RMA Eat better, exercise, reach an ideal body weight General No Ni Clinton, insert operator Healing General On track(2018 9:18 AM [...] weekly. ?? Refer to PCP and/or Director Counseling Bureau, Vascular Specialist as indicated. ?? Monitor patient compliance with wound care, diabetes management and proper offloading. Stay Tobacco Free Lifestyle On track(2020 10:23 AM EDT) No Wendy Espinoza LPN HEMOGLOBIN A1C < 7.0 Result Component 5.6(11/09/19 3:04 PM EST) Rachel Regan, RMLeigh documented as of this encounter Visit Diagnoses Diagnosis UTI (urinary tract infection), uncomplicated- Primary Urinary tract infection, site not specified Chronic abdominal pain Abdominal pain, unspecified site Weight loss Loss of weight documented in this encounter Care Teams Electric Tripper Machine Operator Relationship Specialty Start Date End Date Cristiane Shirley MD [address] [place], [place] [id number] PCP - General Family Medicine 08/20/18 12/29/23 Garett Holt MD Internal Medicine-Gastroenterolog y 12/22/12 Ruiz Stokes MD [address] [place] [address] Internal Medicine-Cardiovascular Disease 07/25/14 Yenny Schwab MD 651 [facility] [address] [place] [address] Internal Medicine-Rheumatology 12/11/16 Joselyn Chance, RN Rubber Belt Splicer Registered Nurse 05/05/20 03/08/21 documented as of this encounter
--- OUTSIDE RECORDS SUMMARY | 2024-07-22 16:05 | XMS_ITS | Encounter Summary ---
Author Organization [place] [address] Care Team Providers Care Pot Fisher Name Role Phone Garett Holt MD Unavailable [phone] Ruiz Stokes MD Unavailable [phone] Yenny Schwab MD Unavailable [phone] Cristiane Shirley MD Primary Care Provider Joselyn Chance RN Unavailable Unavail able Reason for Visit * Auth/Cert/Inpt Specialty Diagnoses / Procedures Referred By Contac t Referred To Contact Diagnoses Periumbilical abdominal pain Periumbilical abdominal pain [R10.33] Procedures MS EGD TRANSORAL BIOPSY SINGLE/MULTIPLE ESOPHAGOGASTRODUODENOSCOPY Referral ID Status Reason Start Date Expiration Date Visits Re quested Visits Authorized [id number] 1 1 Encounter Details Date Type Department Care Team (Late st Contact Info) Description 07/26/2020 9:17 AM EST Anesthesia Event [facility] [address] [place] [address] Byron Centeno, DO 1 [facility] [address] [place] [address] Katherine Garcia APRN [address] [facility] [address] [place] [address] Anesthesia Record Procedure Summary Procedure Name Responsible Anesthesiologist Anesthesia Start Time Anesthesia Stop Time ESOPHAGOGASTRODUODENOSCOPY (ANESTHESIA) Byron Centeno DO 07/26/20 0917 07/26/20 0928 Events Date Time Event Comment 07/26/2020 0857 0905 AN Equip Check 0917 An Start 0918 An Start Data 0918 Immediate Pre Anesthetic Ass es 0921 Anesthesia Ready 0922 Time out 09 Incision 09 an stop data 0928 Handoff I completed my SBAR handoff to the receiving nurse which has included the followin. Identification of the patient, family, or patient surrogate 2. Identification of the responsible practitioner 3. Pertinent medical history 4. Surgical procedure and reason for procedure 5. Intraoperative anesthetic management 6. All current lines, drains and respiratory support. 7. Outstanding follow up orders (X-rays, consults etc) 8. Expectations/Plans for the early post-procedure period 9. Opportunity for questions and acknowledgement of understanding from the receiving PACU/ICU stationary steam engineer 927 An Stop Meds Name Total propofol (DIPRIVAN) injection 100 mg lidocaine injection 1% 50 mg lactated ringers infusion 0 mL * Agents Name O2 * Blood No blood administrations on file. Lines, Drains, and Airways Type Details Placement Removal Airway Device: Nasal Cannul a Salter; Placement Date: 07/26/20; Placement Time: 919 (created via procedure documentation); Removal Date: 07/26/20; Removal Time: 14407/26/20 0920 by Byron Centeno DO 07/26/20 1443 by Discharge Provider, Automatic documented in this encounter Social History Tobacco [...] Author No 01/23/2019 9:05 AM Nitin Rider, CASSI documented in this encounter Procedure Notes * Byron Centeno DO - 07/26/2020 9:23 AM ESTAssociated Order(s): Airway Intraop Airway Placement: Date/Time: 07/26/2020 9:20 AM Airway type: Nasal cannula salter documented in this encounter OR Notes * Anesthesia Postprocedure Evaluation - Byron Centeno DO - 07/26/2020 9:59 AM EST Post-Anesthesia Evaluation Note Patient Name: Alyssa Jamil Patient Date: July 26, 2020 Post-Anesthesia Evaluation Patient Location: ENDO Post op vitals: stable Nausea controlled: yes Level of consciousness: awake, alert and oriented Post anesthesia pain: adequate analgesia Long acting local anesthetic: n/a Airway patency: patent Respiratory status: spontaneous ventilation Cardiovascular status: stable Hydration status: euvolemic Perioperative complications: NONE Vitals: 07/26/20 0945 BP: 97/60 Pulse: 51 Resp: 18 Temp: 36.1 ??C (97 ??F) SpO2: 100% * Anesthesia Preprocedure Evaluation - Byron Centeno DO - 07/19/2020 10:39 AM EST Pre-Anesthesia Evaluation Note Patient Name: Alyssa Jamil Sex: female Patient : 1955 Age: 65 y.o. Patient Date: July 19, 2020 Procedure(s): ESOPHAGOGASTRODUODENOSCOPY Anesthesia Evaluation Previous anesthesia. Airway Mallampati: II TM distance: >3 FB Neck ROM: full No increased risk of difficult airway Dental Dental exam findings: edentulous Pulmonary (+) Asthma Sleep apnea History of tobacco use (Quit 1983, 18 pack years): former Physical exam: Comments: Clear to auscultation Cardiovascular (+)Hypertension: Hyperlipidemia Shortness of breath: ECG reviewed Physical exam: Rhythm: regular Rate: normal Neuro/Psych (+) Fibromyalgia GI/Hepatic/Renal (+) Hiatal hernia GERD/PUD: Endo/Other Comments: PMR (polymyalgia rheumatica) Temporal arteritis (+)Obese: Morbid obesity (BMI 40-49.9) Diabetes mellitus (A1c 5.6- 05/2020): type 2 Arthritis: Anemia 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 BMI 42.88 Anesthesia Plan ASA 3 Last solid intake: The patient has not eaten within the last 8 hours. Last clear liquid intake: The patient has not had clear liquids within the last 2 hours. Anesthesia Plan: MAC Induction: intravenous Monitors: STD Informed consent Anesthetic plan and risks discussed with: patient. Chart Reviewed and patient examined documented in this encounter Plan of Treatment Upcoming Encounters Date Type Department Care Team (Late st Contact Info) Description 07/29/2024 9:00 AM EST Appointment [facility] [address] [place], [place] [id number] Jomar Kim MD [address] [place] [address] documented as of this encounter Goals Goal Patient Goal Type Associated Problems Recent Progress Patient-Stated? Author Blood Pressure < 140/90 Blood Pressure 110/72(04/27 2:44 PM EDT) No Rachel Rogers RMA BMI (Calculated) < 30 General 50.9( 2:44 PM EDT) No Rachel Rogers RMA Eat better, exercise, reach an ideal body weight General No Ni Clinton, director of midwifery/staff midwife Healing General On track(2018 9:18 AM EDT) [...] weekly. ?? Refer to PCP and/or Director Of Integrated Marketing, Vascular Specialist as indicated. ?? Monitor patient compliance with wound care, diabetes management and proper offloading. Stay Tobacco Free Lifestyle On track(2020 10:23 AM EDT) Wendy Moon LPN HEMOGLOBIN A1C < 7.0 Result Component 5.6(11/09/19 24 3:04 PM EST) No Rachel Rogers RMA documented as of this encounter Procedures Procedure Name Priority Date/Time Associated Diagnosis Comments INTRAOP AIRWAY PLACEMENT Routine 07/26/2020 9:23 AM EST documented in this encounter Results * INTRAOP AIRWAY PLACEMENT (07/26/2020 9:23 AM EST) Narrative [facility] - 07/26/2020 9:23 AM EST Byron Centeno, DO ? 07/26/2020 ??9:23 AM Intraop Airway Placement: Date/Time: 07/26/2020 9:20 AM ??Airway type: ??Nasal cannula salter us Byron Centeno DO MS ANESTHESIA Final Res ult [facility] [address] [place] [id number] documented in this encounter Visit Diagnoses Not on filedocumented in this encounter Administered Medications Inactive Administered Medications - up to 1 most recent administrations Medication Order MAR Action Action Date Dose Rate Site lactated ringers infusion Intravenous, at 100 mL/hr, PREPROCEDURE CONTINUOUS, Starting on Fri07/25/20 at 0935, Until Fri07/26/20 at 1443, To be given in SDS/Pre-op Holding Area, Pre-op (Holding/SDS Meds) New Bag 07/26/2020 9:17 AM EST lidocaine 1% 10 mg/mL (1 %) injection Intravenous, PRN (Anesthesia), Starting on Fri07/26/20 at 0920, Until Fri07/26/20 at 0928, Anesthesia Intra-op Given 07/26/2020 9:20 AM EST 50 mg propofoL (DIPRIVAN) injection Intravenous, PRN (Anesthesia), Starting on Fri07/26/20 at 0920, Until Fri07/26/20 at 0928, Anesthesia Intra-op Given 07/26/2020 9:23 AM EST 50 mg documented in this encounter Care Teams Pot Fisher Relationship Specialty Start Date End Date Cristiane Shirley MD [address] [place], [place] [id number] PCP - General Family Medicine 08/20/18 12/29/23 Garett Holt MD Internal Medicine-Gastroenterolog y 12/22/12 Ruiz Stokes MD [address] [place], [place] [id number] Internal Medicine-Cardiovascular Disease 07/25/14 Yenny Schwab MD [address] [address] Internal Medicine-Rheumatology 12/11/16 Joselyn Chance, RN Translator/Interpreter Registered Nurse 05/05/20 03/08/21 documented as of this encounter
--- OUTSIDE RECORDS SUMMARY | 2024-07-22 16:05 | XMS_ITS | Encounter Summary ---
Author Organization [place] [address] Care Team Providers Care Apparel Machinery Instructor Name Role Phone Garett Holt MD Unavailable [phone] Ruiz Stokes MD Unavailable [phone] Yenny Schwab MD Unavailable [phone] Cristiane Shirley MD Primary Care Provider Joselyn Chance RN Unavailable Unavail able Encounter Details Date Type Department Care Team (Late st Contact Info) Description 08/21/2020 Orders Only [facility] [address] [place] [address] Soledad Mcmillan, [facility] 19 [facility] [place], [place] [id number] Social History Tobacco Use Types Packs/Day Years [...] [place] [address] Jomar Kim MD [address] [place] [address] documented as of this encounter Goals Goal Patient Goal Type Associated Problems Recent Progress Patient-Stated? Author Blood Pressure < 140/90 Blood Pressure 110/72(04/27 2:44 PM EDT) No Rachel Rogers RMA BMI (Calculated) < 30 General 50.9( 024 2:44 PM EDT) No Rachel Rogers RMA Eat better, exercise, reach an ideal body weight General No Ni Clinton, voting machine mechanic Healing General On track(2018 9:18 AM [...] neuropathy weekly. ?? Refer to PCP and/or Margin Trimmer, Vascular Specialist as indicated. ?? Monitor [...] Discontinue Reason Start Date End Da te ondansetron (ZOFRAN-ODT) 4 mg Oral Tablet, Rapid DissolveIndications:Don sea Take 1 Tab by mouth every 6 hours. DELETE-Therapy completed 05/18/2020 08/21/2020 documented as of this encounter Care Teams Apparel Machinery Instructor Relationship Specialty Start Date End Date Cristiane Shirley MD [address] [place] [address] PCP - General Family Medicine 08/20/18 12/29/23 Garett Holt MD Internal Medicine-Gastroenterolog y 12/22/12 Ruiz Stokes MD [address] [place], [place] [id number] Internal Medicine-Cardiovascular Disease 07/25/14 Yenny Schwab MD [address] [address] Internal Medicine-Rheumatology 12/11/16 Joselyn Chance, RN Stripper Shovel Operator Registered Nurse 05/05/20 03/08/21 documented as of this encounter
--- OUTSIDE RECORDS SUMMARY | 2024-07-22 16:05 | XMS_ITS | Encounter Summary ---
Author Organization [facility] [place] [address] Care Team Providers Care Head Turning Machine Operator Name Role Phone Garett Holt MD Unavailable [phone] Ruiz Stokes MD Unavailable [phone] Yenny Schwab MD Unavailable [phone] Cristiane Shirley MD Primary Care Provider [phone] Joselyn Chance RN Unavailable Unavail able Encounter Details Date Type Department Care Team (Latest Contact Info) Description 07/25/2020 Travel Social History Tobacco Use Types Packs/Day [...] have Coronavirus / COVID-19? No / Unsure 07/25/2020 11:29 AM EST documented as of this encounter [...] 9:00 AM EST Appointment [facility] [address] [place] [address] Jomar Kim MD [address] [place] [address] documented as of this encounter Goals Goal Patient Goal Type Associated Problems Recent Progress Patient-Stated? Author Blood Pressure < 140/90 Blood Pressure 110/72(04/27 2:44 PM EDT) No Rachel Rogers RMA BMI (Calculated) < 30 General 50.9( 2:44 PM EDT) No Rachel Rogers RMA Eat better, exercise, reach an ideal body weight General No Ni Clinton, panel assembler Healing General On track(2018 9:18 AM EDT) [...] neuropathy weekly. ?? Refer to PCP and/or Can Filling Room Sweeper, Vascular Specialist as indicated. ?? Monitor patient compliance with wound care, diabetes management and proper offloading. Stay Tobacco Free Lifestyle On track(2020 10:23 AM EDT) No Wendy Espinoza LPN HEMOGLOBIN A1C < 7.0 Result Component 5.6(11/09/19 24 3:04 PM EST) No Rachel Rogers RMA documented as of this encounter Visit Diagnoses Not on filedocumented in this encounter Care Teams Head Turning Machine Operator Relationship Specialty Start Date End Date Cristiane Shirley MD [address] [place] [address] PCP - General Family Medicine 08/20/18 12/29/23 Garett Holt MD Internal Medicine-Gastroenterolog y 12/22/12 Ruiz Stokes MD [address] [place] [id number] Internal Medicine-Cardiovascular Disease 07/25/14 Yenny Schwab MD 6[address] [facility] [address] [place] [phone] Internal Medicine-Rheumatology 12/11/16 Joselyn Chance, RN Metal Drilling Machine Operator Registered Nurse 05/05/20 03/08/21 documented as of this encounter
--- OUTSIDE RECORDS SUMMARY | 2024-07-22 16:05 | XMS_ITS | Encounter Summary ---
Author Organization [place] [address] Care Team Providers Care Soda Column Operator Name Role Phone Garett Holt MD Unavailable [phone] Ruiz Stokes MD Unavailable [phone] Yenny Schwab MD Unavailable [phone] Cristiane Shirley MD Primary Care Provider [phone] Joselyn Chance RN Unavailable Unavail able Reason for Visit * Reason Comments Other having pain. Encounter Details Date Type Department Care Team (Late st Contact Info) Description 09/06/2020 10:45 AM EST Office Visit SEP Gen Surg EDG [address] [place] [address] [place] [id number] Regan Butts MD 20 [facility] [address] [place], [place] [id number] Epigastric pain (Primary Dx) Social History Tobacco Use Types [...] Sign Reading Time Taken Comments Blood Pressure 118/62 09/06/2020 10:38 AM EST Pulse 60 09/06/2020 10:38 AM EST Temperature 36.2 ??C (97.2 ??F) 09/06/2020 10:[address] Respiratory Rate 16 09/06/2020 10:38 AM EST Oxygen Saturation - - Inhaled Oxygen Concentration - - Weight 116.1 kg (256 lb) 09/06/2020 10:38 AM EST Height - - Body Mass Index 43.94 07/26/2020 8:54 AM EST documented in this [...] Nitin Rider CMA documented in this encounter Progress Notes * Regan Butts MD - 09/06/2020 10:45 AM EST Subjective Subjective: Patient ID: Alyssa Jamil is a 65 y.o. female. Chief Complaint Patient presents with ??? Other having pain. S/p Robotic Ventral Hernia Repair with Mesh on 04/18/20 Pain in abdomen, worse after eating. Does see GI but no additional work-up from their standpoint. Other Associated symptoms include abdominal pain and nausea. Pertinent negatives include no arthralgias, chest pain, chills, coughing, diaphoresis, fatigue, fever, headaches, joint swelling, myalgias, neckpain, numbness, rash, sore throat, vomiting or weakness. Patients past medical, family and social histories were reviewed and updated. There were no changesexcept as noted. Review of Systems Constitutional: Negative for appetite change, chills, diaphoresis, fatigue, fever and unexpected weight change. HENT: Negative for ear pain, hearing loss, nosebleeds, sore throat, tinnitus and voice change. Eyes: Negative for photophobia, pain and visual disturbance. Respiratory: Negative for cough, choking, chest tightness, shortness of breath and wheezing. Cardiovascular: Negative for chest pain, palpitations and leg swelling. Gastrointestinal: Positive for abdominal distention, abdominal pain and nausea. Negative for anal bleeding, blood in stool, constipation, diarrhea, rectal pain and vomiting. Genitourinary: Negative for difficulty urinating, dysuria, enuresis, flank pain and frequency. Musculoskeletal: Positive for back pain. Negative for arthralgias, gait problem, joint swelling, myalgias and neck pain. Skin: Negative for color change, rash and wound. Neurological: Negative for dizziness, seizures, speech difficulty, weakness, light-headedness, numbness and headaches. Hematological: Negative for adenopathy. Psychiatric/Behavioral: Negative for confusion, decreased concentration and hallucinations. The patient is not nervous/anxious. Objective Objective: Vitals: 09/06/20 1038 BP: 118/62 Pulse: 60 Resp: 16 Temp: 97.2 ??F (36.2 ??C) TempSrc: Forehead Weight: 256 lb (116.1 kg) Body mass index is 43.94 kg/m??. Physical Exam Constitutional: Appearance: She is obese. HENT: Head: Normocephalic. Nose: Nose normal. Mouth/Throat: Mouth: Mucous membranes are moist. Eyes: Extraocular Movements: Extraocular movements intact. Pupils: Pupils are equal, round, and reactive to light. Neck: Musculoskeletal: Normal range of motion. Cardiovascular: Rate and Rhythm: Normal rate. Pulmonary: Effort: Pulmonary effort is normal. Abdominal: Comments: Obese, tender in epigastric area over incision where there is a bulge with valsalva and coughing Skin: General: Skin is warm and dry. Neurological: General: No focal deficit present. Mental Status: She is alert. Psychiatric: Mood and Affect: Mood normal. Assessment and Plan: Alyssa was seen today for other. Diagnoses and all orders for this visit: Epigastric pain Her CT from May does not definitively demonstrate a recurrence of hernia but I am suspicious there may be one on my exam today. If she does having ongoing pain by next follow-up then we will obtain repeat CT and discuss possible surgery. F/u in 2-3 weeks. documented in this encounter Plan of Treatment Upcoming Encounters Date Type Department Care Team (Late st Contact Info) Description 07/29/2024 9:00 AM EST Appointment [facility] [address] [place] [address] Jomar Kim MD [address] [place] [address] documented as of this encounter Goals Goal Patient Goal Type Associated Problems Recent Progress Patient-Stated? Author Blood Pressure < 140/90 Blood Pressure 110/72(04/27 2:44 PM EDT) No Rachel Rogers RMA BMI (Calculated) < 30 General 50.9( 2:44 PM EDT) No Rachel Rogers RMA Eat better, exercise, reach an ideal body weight General No Ni Clinton, supervisor payroll Healing General On track(2018 9:18 AM EDT) [...] neuropathy weekly. ?? Refer to PCP and/or Gizzard Peeler, Vascular Specialist as indicated. ?? Monitor patient compliance with wound care, diabetes management and proper offloading. Stay Tobacco Free Lifestyle On track(2020 10:23 AM EDT) Wendy Moon LPN HEMOGLOBIN A1C < 7.0 Result Component 5.6(11/09/19 24 3:04 PM EST) No Rachel Rogers RMA documented as of this encounter Visit Diagnoses Diagnosis Epigastric pain- Primary Abdominal pain, epigastric documented in this encounter Care Teams Soda Column Operator Relationship Specialty Start Date End Date Cristiane Shirley MD [address] [place] [address] PCP - General Family Medicine 08/20/18 12/29/23 Garett Holt MD Internal Medicine-Gastroenterolog y 12/22/12 Ruiz Stokes MD [address] [place] [address] Internal Medicine-Cardiovascular Disease 07/25/14 Yenny Schwab MD [address] [place] [address] Internal Medicine-Rheumatology 12/11/16 Joselyn Chance, RN Ticket Dispatcher Registered Nurse 05/05/20 03/08/21 documented as of this encounter
--- OUTSIDE RECORDS SUMMARY | 2024-07-22 16:05 | XMS_ITS | Encounter Summary ---
Author Organization [facility] [place] [address] Care Team Providers Care Wire Mesh Knitter Name Role Phone Garett Holt MD Unavailable Ruiz Stokes MD Unavailable [phone] Yenny Schwab MD Unavailable [phone] Cristiane Shirley MD Primary Care Provider [phone] Joselyn Chance RN Unavailable Unavail able Encounter Details Date Type Department Care Team (Latest Contact Info) Description 07/26/2020 Travel Social History Tobacco Use Types Packs/Day [...] 9:00 AM EST Appointment [facility] [address] [place] [address] Jomar Kim MD [address] [place] [address] documented as of this encounter Goals Goal Patient Goal Type Associated Problems Recent Progress Patient-Stated? Author Blood Pressure < 140/90 Blood Pressure 110/72(04/27 2:44 PM EDT) No Rachel Rogers RMA BMI (Calculated) < 30 General 50.9( 2:44 PM EDT) No Rachel Rogers RMA Eat better, exercise, reach an ideal body weight General No Ni Clinton, safety attendant Healing General On track(2018 9:18 AM EDT) [...] weekly. ?? Refer to PCP and/or Rn Clinical Research, Vascular Specialist as indicated. ?? Monitor patient compliance with wound care, diabetes management and proper offloading. Stay Tobacco Free Lifestyle On track(2020 10:23 AM EDT) No Wendy Espinoza LPN HEMOGLOBIN A1C < 7.0 Result Component 5.6(11/09/19 24 3:04 PM EST) No Rachel Rogers RMA documented as of this encounter Visit Diagnoses Not on filedocumented in this encounter Care Teams Wire Mesh Knitter Relationship Specialty Start Date End Date Cristiane Shirley MD [address] [place] [address] PCP - General Family Medicine 08/20/18 12/29/23 Garett Holt MD Internal Medicine-Gastroenterolog y 12/22/12 Ruiz Stokes MD [address] [place] [id number] Internal Medicine-Cardiovascular Disease 07/25/14 Yenny Schwab MD 651 [facility] [address] [place] [id number] Internal Medicine-Rheumatology 12/11/16 Joselyn Chance, RN Studio Director Registered Nurse 05/05/20 03/08/21 documented as of this encounter
--- OUTSIDE RECORDS SUMMARY | 2024-07-22 16:05 | XMS_ITS | Encounter Summary ---
Author Organization [place] [address] Care Team Providers Care Employment Law Specialist Name Role Phone Garett Holt MD Unavailable [phone] Ruiz Stokes MD Unavailable [phone] Yenny Schwab MD Unavailable [phone] Cristiane Shirley MD Primary Care Provider Joselyn Chance RN Unavailable Unavail able Nuria Gonzalez BA, COS Unavailable Unavailable Reason for Visit * Reason Onset Date Comments Transportation 06/15/2020 Encounter Details Date Type Department Care Team (Late st Contact Info) Description 06/15/2020 Patient Outreach [facility] [address] [place] [address] Nuria Gonzalez BA, COS Transportation [...] encounter Progress Notes * Nuria Gonzalez - 06/15/2020 3:31 PM EDT COS calling pt to follow up on transportation referral. COS reached pt's Janey (ok per acf). stating pt has a hard time getting in and out of a vehicle on her own. stating that a friend is currently helping them with transportation. stating that both and friend have to help pt get in and out of vehicle. stating no medical transportation companies in their area. COS notified that COS attempted to see if pt has transportation benefit through her insurance but that she does not seem to have it. stating they have tried getting a plan in the past that has transportation as a benefit but usually they don't get the other things that t hey need. COS provided with phone number to sonny to call and see if they can help him find a plan that meets pt's needs. COS let know that there are currently no other resources available in his area for transportation. stating he is aware of this because he is a and the [facility] is not able to help him due to his location. COS inquired if family has thought about moving but stating they just moved there 5 years ago. COS provided pt's with direct phone number should any questions arise. Transportation Eligibility Date of Evaluation: 06/15/2020 Patient does not qualify for the following transportation resources: ??? Medicaid: does not have medicaid ??? [employer] RAMP: demographics ??? [employer] Senior: demographics ??? Payor-Funded: not in the system for transportation benefit Outcome: ??? COS will no longer follow. Pt does not have any transportation resources available to them. * Nuria Gonzalez - 06/15/2020 3:28 PM EDT COS called [employer] to see if they serve [facility]. [employer] does not currently go to [place]. * Nuria Gonzalez - 06/15/2020 3:25 PM EDT COS called pt's insurance company to verify pt's transportation benefits. [employer] roasterman stating unable to provide specific plan benefit information to COS. AD COPY WRITER provided phone number to [place] access to care the [employer] transportation vendor. COS called access to care and they are stating pt is not intheir system. documented in this encounter Plan of Treatment Upcoming Encounters Date Type Department Care Team (Late st Contact Info) Description 07/29/2024 9:00 AM EST Appointment [facility] [address] [place] [address] Jomar Kim MD [address] [place] [address] documented as of this encounter Goals Goal Patient Goal Type Associated Problems Recent Progress Patient-Stated? Author Blood Pressure < 140/90 Blood Pressure 110/72(04/27 2:44 PM EDT) No Rachel Rogers RMA BMI (Calculated) < 30 General 50.9( 024 2:44 PM EDT) No Rachel Rogers RMA Eat better, exercise, reach an ideal body weight General No Ni Clinton, greeting card editor Healing General On track(2018 9:18 AM EDT) [...] weekly. ?? Refer to PCP and/or Public Health Professor, Vascular Specialist as indicated. ?? Monitor patient compliance with wound care, diabetes management and proper offloading. Stay Tobacco Free Lifestyle On track(2020 10:23 AM EDT) No Wendy Espinoza LPN HEMOGLOBIN A1C < 7.0 Result Component 5.6(11/09/19 24 3:04 PM EST) No Rachel Rogers RMA documented as of this encounter Visit Diagnoses Not on filedocumented in this encounter Care Teams Employment Law Specialist Relationship Specialty Start Date End Date Cristiane Shirley MD [address] [place] [address] PCP - General Family Medicine 08/20/18 12/29/23 Garett Holt MD Internal Medicine-Gastroentero logy 12/22/12 Ruiz Stokes MD [address] [place], [place] [id number] Internal Medicine-Cardiovascul ar Disease 07/25/14 Yenny Schwab MD [address]51 [facility] Building [address] [place] [address] Internal Medicine-Rheumatology 12/11/16 Joselyn Chance, RN Oversize Load Pilot Escort Registered Nurse 05/05/20 03/08/21 Nuria Gonzalez BA, COS Case Machine Stuffer Automatic 06/15/20 06/15/20 documented as of this encounter
--- OUTSIDE RECORDS SUMMARY | 2024-07-22 16:05 | XMS_ITS | Encounter Summary ---
Author Organization [place] [address] Care Team Providers Care Product Assurance Engineer Name Role Phone Garett Holt MD Unavailable [phone] Ruiz Stokes MD Unavailable [phone] Yenny Schwab MD Unavailable [phone] Cristiane Shirley MD Primary Care Provider [phone] Joselyn Chance RN Unavailable Unavail able Reason for Visit * Reason Onset Date Comments Other 08/01/2020 Encounter Details Date Type Department Care Team (Late st Contact Info) Description 08/01/2020 Telephone SEP Gen Surg EDG 132 [address] [facility] [address] [place] [address] David Khan MA Other Social History Tobacco Use Types [...] encounter Miscellaneous Notes * Telephone Encounter - David Khan MA - 08/01/2020 3:05 PM EST Thank you. Patient scheduled. * Telephone Encounter - Dakotah Kim DO - 08/01/2020 2:57 PM EST Nothing in the chart suggests that Dr. Butts has refused to see the patient. She can be set up tosee him at his next available appointment. * Telephone Encounter - David Khna MA - 08/01/2020 2:45 PM EST Patient is a previous patient of Dr. Butts and patient states that is having a lot of pain and issues from the surgery that Dr. Butts did but was told when he called to make her an appointment that Dr. Butts is refusing to see her. Is there is a reason this patient cannot be seenor should she see another provider in the practice. documented in this encounter Plan of Treatment Upcoming Encounters Date Type Department Care Team (Late st Contact Info) Description 07/29/2024 9:00 AM EST Appointment [facility] [address] [place], [place] [address] Jomar Kim MD [address] [place] [address] documented as of this encounter Goals Goal Patient Goal Type Associated Problems Recent Progress Patient-Stated? Author Blood Pressure < 140/90 Blood Pressure 110/72(04/27 2:44 PM EDT) No Rachel Rogers RMA BMI (Calculated) < 30 General 50.9( 2:44 PM EDT) No Rachel Rogers RMA Eat better, exercise, reach an ideal body weight General No Ni Clinton, stacker driver Healing General On track(2018 9:18 AM EDT) [...] neuropathy weekly. ?? Refer to PCP and/or Offshore Wind Operations Manager, Vascular Specialist as indicated. ?? Monitor patient compliance with wound care, diabetes management and proper offloading. Stay Tobacco Free Lifestyle On track(2020 10:23 AM EDT) No Wendy Espinoza LPN HEMOGLOBIN A1C < 7.0 Result Component 5.6(11/09/19 3:04 PM EST) No Rachel Rogers RMA documented as of this encounter Visit Diagnoses Not on filedocumented in this encounter Care Teams Product Assurance Engineer Relationship Specialty Start Date End Date Cristiane Shirley MD [address] [place] [address] PCP - General Family Medicine 08/20/18 12/29/23 Garett Holt MD Internal Medicine-Gastroenterolog y 12/22/12 Ruiz Stokes MD [address] [place] [address] Internal Medicine-Cardiovascular Disease 07/25/14 Yenny Schwab MD [address] [address] Internal Medicine-Rheumatology 12/11/16 Joselyn Chance, RN In House Cra Registered Nurse 05/05/20 03/08/21 documented as of this encounter
--- OUTSIDE RECORDS SUMMARY | 2024-07-22 16:05 | XMS_ITS | Encounter Summary ---
Author Organization [facility] [place] [address] Care Team Providers Care Steam Engineer Name Role Phone Garett Holt MD Unavailable [phone] Ruiz Stokes MD Unavailable [phone] Yenny Schwab MD Unavailable [phone] Cristiane Shirley MD Primary Care Provider [phone] Joselyn Chance RN Unavailable Unavail able Encounter Details Date Type Department Care Team (Latest Contact Info) Description 07/18/2020 Travel Social History Tobacco Use Types Packs/Day [...] have Coronavirus / COVID-19? No / Unsure 07/18/2020 3:06 PM EST documented as of this encounter [...] 09/14/2019 10:05 AM EST Brynn Morgan MULU * Because of a physical, mental or [...] 9:00 AM EST Appointment [facility] [address] [facility] [place] [address] Jomar Kim MD [address] [place] [address] documented as of this encounter Goals Goal Patient Goal Type Associated Problems Recent Progress Patient-Stated? Author Blood Pressure < 140/90 Blood Pressure 110/72(04/27 2:44 PM EDT) No Rachel Rogers RMA BMI (Calculated) < 30 General 50.9( 2:44 PM EDT) Rachel Regan RMA Eat better, exercise, reach an ideal body weight General No Ni Clinton, grading supervisor Healing General On track(2018 9:18 AM EDT) [...] neuropathy weekly. ?? Refer to PCP and/or Claim Inspector, Vascular Specialist as indicated. ?? Monitor patient compliance with wound care, diabetes management and proper offloading. Stay Tobacco Free Lifestyle On track(2020 10:23 AM EDT) No Wendy Espinoza LPN HEMOGLOBIN A1C < 7.0 Result Component 5.6(11/09/19 24 3:04 PM EST) No Rachel Rogers RMA documented as of this encounter Visit Diagnoses Not on filedocumented in this encounter Care Teams Steam Engineer Relationship Specialty Start Date End Date Cristiane Shirley MD [address] [place] [address] PCP - General Family Medicine 08/20/18 12/29/23 Garett Holt MD Internal Medicine-Gastroenterolog y 12/22/12 Ruiz Stokes MD [address] [place] [id number] Internal Medicine-Cardiovascular Disease 07/25/14 Yenny Schwab MD 651 [facility] [address] [place] [id number] Internal Medicine-Rheumatology 12/11/16 Joselyn Chance, RN Dag Sprayer Registered Nurse 05/05/20 03/08/21 documented as of this encounter
--- OUTSIDE RECORDS SUMMARY | 2024-07-22 16:05 | XMS_ITS | Encounter Summary ---
Author Organization [place] [address] Care Team Providers Care Senior Sales Operations Analyst Name Role Phone Garett Holt MD Unavailable [phone] Ruiz Stokes MD Unavailable [phone] Yenny Schwab MD Unavailable [phone] Cristiane Shirley MD Primary Care Provider [phone] Joselyn Chance RN Unavailable Unavail able Reason for Visit * Reason Onset Date Comments CM- Telephonic Outreach 07/28/2020 CM- Longitudinal Continued 07/28/2020 Encounter Details Date Type Department Care Team (Late st Contact Info) Description 07/28/2020 Patient Outreach [facility] [address] [place] [address] Joselyn Chance, RN CM- Telephonic Outreach; CM- Longitudinal Continued [...] Progress Notes * Joselyn Chance RN - 07/28/2020 8:32 AM EST Images from the original note were not included. Reason for follow up call: Follow up on progress post hernia repair in April as patient continues to have abdominal pain. Assessment: - Patient symptoms/concerns: o Patient's Alban reports patient has not had any improvement in her abdominal pain. Alban expressed frustration as he reports the surgeon did not want to see the patient anymore. Chart reviewed and RN CC unable to locate documentation reflecting this. Last office visit with General Surgery was on 05/18/20 and patient was sent to the ER to be evaluated for dehydration. Alban denies patient having bleeding in her bowels or fever. Alban reports patient did have diarrhea a few times and this has resolved. Patient has also completed follow up with GI since that time and last visit from 07/18/20 noted the following information: Assessment/Plan 1. Periumbilical abdominal pain - AMB REFERRAL TO GENERAL SURGERY - AMB EGD W ANESTH COMM ORDER ?? 65-year-old female with multiple medical comorbidities who essentially presents to us for further evaluation of periumbilical abdominal discomfort that began after a repair of an incarcerated ventralhernia back in May with subsequent imaging showing stranding around the mesh concerning for possible fat necrosis. ?? Patient symptoms essentially appeared to be a postoperative issue rather than a gastrointestinal issue especially as she has no issues with abdominal pain prior to the surgery. I have asked her to follow back with her surgeon who initially performed the procedure for any additional recommendations were therapeutic guidance. ?? In regards to her chest discomfort, this [...] her PPI to 40 mg twice daily. ?RTC 3 months ?? Patients reports patient completed an EGD on 07/26/20. RN CC reviewed chart Results of EGD were not discussed with . RN CC did [facility] and communicate his concerns about patients continued pain. Alban has verbalized understanding. - Tobacco use: o Reviewed; patient reports no change in smoking history Impactable barriers: - Patient denies need for: - Transportation - Medication cost - Financial assistance Medications: - Patient's declines to review medications at this time. - Patient's denies any questions or concerns related to medications. Education/handouts: - Reinforced previous education with pt on RN CC role in PCP office. - MyChart already active and access confirmed [...] weekly. ?? Refer to PCP and/or Contract Consultant, Vascular Specialist as indicated. ?? Monitor patient compliance with wound care, diabetes management and proper offloading. Next Steps: - Duralumin Metalworker contact information given / reviewed - Reviewed when to call PCP office, urgent care, or 911 - Duralumin Metalworker will continue to care manage patient documented in this encounter Plan of Treatment Upcoming Encounters Date Type Department Care Team (Late st Contact Info) Description 07/29/2024 9:00 AM EST Appointment [facility] [address] [place] [address] Jomar Kim MD [address] [place] [address] documented as of this encounter Goals Goal Patient Goal Type Associated Problems Recent Progress Patient-Stated? Author Blood Pressure < 140/90 Blood Pressure 110/72(04/27 2:44 PM EDT) No Rachel Rogers, MULU BMI (Calculated) < 30 General 50.9( 2:44 PM EDT) No Rachel Rogers RMA Eat better, exercise, reach an ideal body weight General No Ni Clinton, mushroom sorter grader Healing General On track(2018 9:18 AM [...] weekly. ?? Refer to PCP and/or Contract Consultant, Vascular Specialist as indicated. ?? Monitor [...] Primary documented in this encounter Care Teams Senior Sales Operations Analyst Relationship Specialty Start Date End Date Cristiane Shirley MD [address] [place] [address] PCP - General Family Medicine 08/20/18 12/29/23 Garett Holt MD Internal Medicine-Gastroenterolog y 12/22/12 Ruiz Stokes MD [address] [place], [place] [id number] Internal Medicine-Cardiovascular Disease 07/25/14 Yenny Schwab MD [address] [place] [id number] Internal Medicine-Rheumatology 12/11/16 Joselyn Chance, RN Duralumin Metalworker Registered Nurse 05/05/20 03/08/21 documented as of this encounter
--- OUTSIDE RECORDS SUMMARY | 2024-07-22 16:05 | XMS_ITS | Encounter Summary ---
Author Organization [facility] [place] [address] Care Team Providers Care Gym Instructor Name Role Phone Garett Holt MD Unavailable [phone] Ruiz Stokes MD Unavailable [phone] Yenny Schwab MD Unavailable [phone] Cristiane Shirley MD Primary Care Provider [phone] Joselyn Chance RN Unavailable Unavail able Encounter Details Date Type Department Care Team (Latest Contact Info) Description 07/22/2020 Travel Social History Tobacco Use Types Packs/Day [...] 9:00 AM EST Appointment [facility] [address] [facility] [place] [address] Jomar Kim MD [address] [place] [address] documented as of this encounter Goals Goal Patient Goal Type Associated Problems Recent Progress Patient-Stated? Author Blood Pressure < 140/90 Blood Pressure 110/72(04/27 2:44 PM EDT) No Rachel Rogers RMA BMI (Calculated) < 30 General 50.9( 2:44 PM EDT) Rachel Regan RMA Eat better, exercise, reach an ideal body weight General No Ni Clinton, etl programmer Healing General On track(2018 9:18 AM EDT) [...] neuropathy weekly. ?? Refer to PCP and/or Airline Manager, Vascular Specialist as indicated. ?? Monitor patient compliance with wound care, diabetes management and proper offloading. Stay Tobacco Free Lifestyle On track(2020 10:23 AM EDT) No Wendy Espinoza LPN HEMOGLOBIN A1C < 7.0 Result Component 5.6(11/09/19 24 3:04 PM EST) No Rachel Rogers RMA documented as of this encounter Visit Diagnoses Not on filedocumented in this encounter Care Teams Gym Instructor Relationship Specialty Start Date End Date Cristiane Shirley MD [address] [place] [address] PCP - General Family Medicine 08/20/18 12/29/23 Garett Holt MD Internal Medicine-Gastroenterolog y 12/22/12 Ruiz Stokes MD [address] [id number] Internal Medicine-Cardiovascular Disease 07/25/14 Yenny Schwab MD [address] [id number] Internal Medicine-Rheumatology 12/11/16 Joselyn Chance, RN Shredded Filler Hopper Feeder Registered Nurse 05/05/20 03/08/21 documented as of this encounter
--- OUTSIDE RECORDS SUMMARY | 2024-07-22 16:05 | XMS_ITS | Encounter Summary ---
Author Organization [place] [address] Care Team Providers Care Inspector Assemblies And Installations Name Role Phone Garett Holt MD Unavailable [phone] Ruiz Stokes MD Unavailable [phone] Yenny Schwab MD Unavailable [phone] Cristiane Shirley MD Primary Care Provider [phone] Joselyn Chance RN Unavailable Unavail able Reason for Referral * GI Procedure (Routine) - Closed Specialty Diagnoses / Procedures Referred By Contac t Referred To Contact Diagnoses Periumbilical abdominal pain Procedures AMB EGD W ANESTH COMM ORDER Jomar Kim MD Phone: tel: fax: Referral ID Status Reason Start Date Expiration Date Visits Re quested Visits Authorized [id number] Closed 07/18/2020 07/18/2021 1 1 * Consultation (Routine) - Closed Specialty Diagnoses / Procedures Referred By Contac t Referred To Contact General Surgery Diagnoses Periumbilical abdominal pain Jomar Kim MD Phone: tel: fax: Regan Butts MD [address] [place] [address] Phone: tel: fax: Referral ID Status Reason Start Date Expiration Date Visits Re quested Visits Authorized [id number] Closed 07/18/2020 07/18/2021 99 99 Reason for Visit * Reason Comments Abdominal Pain Diarrhea Nausea * Consultation (Routine) - Closed Specialty Diagnoses / Procedures Referred By Ron bansal Referred To Contact Gastroenterology Diagnoses Chronic abdominal pain Weight loss Cristiane Shirley MD Phone: tel: fax: Jomar Kim MD Phone: tel: fax: Referral ID Status Reason Start Date Expiration Date Visits Re quested Visits Authorized [id number] Closed 07/07/2020 07/07/2021 99 99 Encounter Details Date Type Department Care Team (Latest Contact Info) Description 07/18/2020 3:30 PM EST Office Visit [facility] [address] [place] [address] Jomar Kim MD [address] [place] [address] Periumbilical abdominal pain (Primary Dx) Social History Tobacco Use [...] Sign Reading Time Taken Comments Blood Pressure 118/64 07/18/2020 1:50 PM EST Pulse 79 07/18/2020 1:50 PM EST Temperature 36.6 ??C (97.9 ??F) 07/18/2020 1:50 PM ES T Respiratory Rate - - Oxygen Saturation - - Inhaled Oxygen Concentration - - Weight 113.3 kg (249 lb 12.8 oz) 07/18/2020 1:50 PM EST Height 162.6 cm (5' 4 ) 07/18/2020 1:50 PM EST Body Mass Index 42.88 07/18/2020 1:50 PM EST documented in this encounter Functional [...] Nitin Rider CMA documented in this encounter Ordered Prescriptions Prescription Sig Dispense Quantity Refills Last Filled Start Date End Date omeprazole (PRILOSEC) 40 mg Oral Capsule, Delayed Release(E.C.) Take 1 Cap by mouth 2 times daily. 60 Cap 2 07/18/2020 12/11/2020 documented in this encounter Progress Notes * Jomar Kim MD - 07/18/2020 3:30 PM [...] followed by an empiric dilation to 55 [place] with no visible heme. Review of Systems: [...] BIOPSY ; Surgeon: Christa Chavez MD; Location: [facility] OR; Service: General ??? CARDIAC CATHETERIZATION 04/2015 [...] MESH ; Surgeon: Regan Butts MD; Location: [facility]; Service: General Medications Current Outpatient [...] DAY 90 Tab 10 ??? [facility] Please fill with what her [...] ??? fluticasone propionate (FLONASE) 50 mcg/actuation Nasl [place], Suspension Use 1 spray(s) in eachnostril once [...] file Gets together: Not on file Attends church service: Not on file Active member of [...] in consultation This note was generated by [employer] Voice Recognition technology. It has been reviewed by the undersigned, however, may still contain unintended errors. Jomar Kim MD Special Equipment Technician [facility] [phone] documented in this encounter Miscellaneous Notes * Patient Instructions - Mary Muller LPN - 07/18/2020 3:30 PM EST You may be contacted by mail or e-mail to participate in a patient satisfaction survey regarding your office visit today. We value your opinion and depend on your feedback to make improvements and provide you with the best possible experience while receiving high quality medical treatment. Your time in completing this survey is greatly appreciated. documented in this encounter Plan of Treatment Upcoming Encounters Date Type Department Care Team (Late st Contact Info) Description 07/29/2024 9:00 AM EST Appointment [facility] [address] [place], [place] [id number] Jomar Kim MD [address] [place] [address] Scheduled Referrals Name Type Priority Associated Diagnoses Orde r Schedule AMB REFERRAL TO GENERAL SURGERY Outpatient Referral Routine Periumbilical abdominal pain Ordered: 07/18/2020 documented as of this encounter Goals Goal Patient Goal Type Associated Problems Recent Progress Patient-Stated? Author Blood Pressure < 140/90 Blood Pressure 110/72(04/27 2:44 PM EDT) No Rachel Rogers RMA BMI (Calculated) < 30 General 50.9( 024 2:44 PM EDT) No Rachel Rogers, MULU Eat better, exercise, reach an ideal body weight General No Ni Clinton RN Wound Healing General On track(2018 9:18 AM EDT) No Herd, Bessie M., [...] neuropathy weekly. ?? Refer to PCP and/or Hospice Music Therapy, Vascular Specialist as indicated. ?? Monitor patient compliance with wound care, diabetes management and proper offloading. Stay Tobacco Free Lifestyle On track(2020 10:23 AM EDT) Wendy Moon LPN HEMOGLOBIN A1C < 7.0 Result Component 5.6(11/09/19 24 3:04 PM EST) Rachel Regan RMA documented as of this encounter Visit Diagnoses Diagnosis Periumbilical abdominal pain- Primary Abdominal pain, periumbilic documented in this encounter Discontinued Medications Medication Sig Discontinue Reason Start Date End Da te omeprazole (PRILOSEC) 20 mg Oral Capsule, Delayed Release(E.C.) TAKE 1 CAP BY MOUTH DAILY. Cancelled by 05/03/2020 07/18/2020 documented as of this encounter Orders Nursing Count Last Ordered Date First Orde red Date AMB EGD W ANESTH COMM ORDER 1 07/18/2020 documented in this encounter Care Teams Inspector Assemblies And Installations Relationship Specialty Start Date End Date Cristiane Shirley MD [address] [place] [address] PCP - General Family Medicine 08/20/18 12/29/23 Garett Holt MD Internal Medicine-Gastroenterolog y 12/22/12 Ruiz Stokes MD [address] [id number] Internal Medicine-Cardiovascular Disease 07/25/14 Yenny Schwab MD [address] [place] [address] Internal Medicine-Rheumatology 12/11/16 Joselyn Chance, RN Education Faculty Member Registered Nurse 05/05/20 03/08/21 documented as of this encounter
--- OUTSIDE RECORDS SUMMARY | 2024-07-22 16:06 | XMS_ITS | Encounter Summary ---
Author Organization [place] [address] Care Team Providers Care Marketing Compliance Manager Name Role Phone Garett Holt MD Unavailable [phone] Ruiz Stokes MD Unavailable [phone] Yenny Schwab MD Unavailable [phone] Cristiane Shirley MD Primary Care Provider Reason for Visit * Reason Onset Date Comments CM- SNF Navigator 05/01/2020 Care Transition 05/01/2020 Hospital Follow Up 05/01/2020 CM - Medication Reconciliation 05/01/2020 Encounter Details Date Type Department Care Team (Latest Contact Info) Description 05/01/2020 Patient Outreach [facility] [address] [place] [address] Krys Ballard, RN CM- SNF Navigator; Care Transition; Hospital Follow Up; CM - Medication Reconciliation Social History Tobacco Use Types Packs/Day Years [...] have Coronavirus / COVID-19? No / Unsure 05/01/2020 10:46 AM EDT documented as of this encounter [...] documented in this encounter Progress Notes * Krys Ballard RN - 05/01/2020 11:14 AM EDT FYI: patient discharged from hospital for ventral hernia repair. C/o belly soreness, coughed with dime size blood mixed with sputum this morning, has not occurred again since. Reports nauseated and some SOA when lying down. Educated on use of pain medication and nebulizer, as well as splinting for deep breaths. Pt scheduled for f/u 05/03/2020. * Krys Ballard RN - 05/01/2020 10:05 AM EDT CC contacted patient for hospital discharge follow up. Spoke with patient and spouse to complete call below. Care Management enrollment: - Date of transitional care management enrollment: 05/01/2020 - Reason for Hospitalization: one time call for RRS, ventral hernia repair Assessment: - Patient symptoms/complaints: o Reports spit up blood this morning after being nauseated, coughed up mucus and bright red blood, has not done so since. o Still feels nauseated, having soreness in stomach o Feels that it is difficult to breathe when stomach pain is bad. o Pt spouse reports she does not use neb as ordered. Educated about how this can assist when she feels SOA. - Ability to complete activities of daily living: trouble with getting in and out of bed but spouseis able to assist. Pt also has a friend that assists with transportation and bathing. - Spouse reports she has been up and walking since being home. - Spouse is cleaning incisions daily with wound cleanser provided by hospital. - Spoke with Ind[facility] at [facility], pt referral is pending, will contact pt when she is approved. - Tobacco use: former smoker, quit at the age of 26. Impactable barriers: - Transportation not an issue - [employer] for medication assistance - Unable to address food/housing Medications: - Spouse organizes medications is a weekly pill box. Will ask family to get a new AM/Pm pill box. - Current medication list and discharge medication lists were reconciled with Alyssa Jamil 1955. Any new and discontinued medications as well as dosage changes were reviewed. All medication questions and concerns were addressed. - Uses [employer] for medication assistance. Education: - MD vocational aide Goals: - Monitor for SS above Next Steps: Date Time Visit Type Department Provider 05/03/20 10:45 AM HOSPITAL FOLLOW UP [facility] Pt has friend of family, Samaria Marley, that provides transportation Notes: - Provided CC contact information and encouraged to call with any questions. documented in this encounter Miscellaneous Notes * Telephone Encounter - Elkin Barfield RMA - 05/01/2020 11:59 AM EDT Left message notifying Pt of Dr. Pretty recommendations. * Telephone Encounter - Abel Pretty MD - 05/01/2020 11:48 AM EDT Can follow up sooner for an appt if she prefers documented in this encounter Plan of Treatment Upcoming Encounters Date Type Department Care Team (Late st Contact Info) Description 07/29/2024 9:00 AM EST Appointment [facility] [address] [place], [place] [id number] Jomar Kim MD [address] [place], [place] [id number] documented as of this encounter Goals Goal Patient Goal Type Associated Problems Recent Progress Patient-Stated? Author Blood Pressure < 140/90 Blood Pressure 110/72(04/27 2:44 PM EDT) No Rachel Rogers RMA BMI (Calculated) < 30 General 50.9( 2:44 PM EDT) No Rachel Rogers RMA Eat better, exercise, reach an ideal body weight General No Ni Clinton, insurance collector Healing General On track(2018 9:18 AM EDT) [...] neuropathy weekly. ?? Refer to PCP and/or Workers Compensation Administrator, Vascular Specialist as indicated. ?? Monitor patient compliance with wound care, diabetes management and proper offloading. Stay Tobacco Free Lifestyle On track(2020 10:23 AM EDT) Wendy Moon LPN HEMOGLOBIN A1C < 7.0 Result Component 5.6(11/09/19 3:04 PM EST) Rachel Regan RMA documented as of this encounter Visit Diagnoses Not on filedocumented in this encounter Historical Medications * This list may reflect changes made after this encounter. oxyCODONE-acetami nophen (PERCOCET) 5-325 mg Oral Tablet Take 1-2 Tabs by mouth every 4 hours as needed for Major Surgery/Traum a (G89.18). May take 1-2 tablets every 4 hours as needed for pain 02/24/2021 added in this encounter Care Teams Marketing Compliance Manager Relationship Specialty Start Date End Date Cristiane Shirley MD [address] [place] [address] PCP - General Family Medicine 08/20/18 12/29/23 Garett Holt MD Internal Medicine-Gastroenterology 12/22/12 Ruiz Stokes MD [address] [place] [address] Internal Medicine-Cardiovascular Disease 07/25/14 Yenny Schwab MD [address] [place] [address] Internal Medicine-Rheumatology 12/11/16 documented as of this encounter
--- OUTSIDE RECORDS SUMMARY | 2024-07-22 16:06 | XMS_ITS | Encounter Summary ---
Author Organization [place] [address] Care Team Providers Care Endband Sizer Name Role Phone Garett Holt MD Unavailable [phone] Ruiz Stokes MD Unavailable [phone] Yenny Schwab MD Unavailable [phone] Cristiane Shirley MD Primary Care Provider [phone] Joselyn Chance RN Unavailable Unavail able Reason for Visit * Reason Onset Date Comments CM- Telephonic Outreach 05/05/2020 CM-Medication Assistance 05/05/2020 Cm- Longitudinal Initiation 05/05/2020 CM- In office handoff 05/05/2020 CM-Resource Coordination 05/05/2020 Encounter Details Date Type Department Care Team (Late st Contact Info) Description 05/05/2020 Patient Outreach [facility] [address] [place] [address] Joselyn Chance, RN CM- Telephonic Outreach; CM-Medication Assistance; Cm- Longitudinal Initiation; CM- In office handoff; CM-Resource Coordination Social History Tobacco Use Types Packs/Day Years [...] have Coronavirus / COVID-19? No / Unsure 05/03/2020 10:40 AM EDT documented as of this encounter [...] Last Filled Start Date End Date albuterol (PROVENTIL) 2.5 mg /3 mL (0.083 %) Inhl Solution for Nebulization Take 3 mL by nebulization every 4 hours as needed for Wheezing. 1 box 6 05/05/2020 1 documented in this encounter Progress Notes * Joselyn Chance RN - 05/05/2020 1:52 PM EDT RN CC contacted [facility] to obtain lucero of Nystatin and cost is $34.97. RN CC contacted patients Alban who reports he cannot afford this lucero. RN CC obtained a Good Rx coupon and contacted [facility] to provide this information. With the Good Rxcard lucero was reduced to $17.70. RN CC contacted patients again who reports he can afford to obtain this medication with reduced cost. * Joselyn Chance RN - 05/05/2020 1:51 PM EDT RN CC contacted patients Alban to advise neb solution was sent and had previously order medication for patients mouth. Patients reports this medication may have been included in the lucero of what he could not afford to pharmacy picking technician. * Cristiane Shirley MD - 05/05/2020 12:56 PM EDT Sent neb solution. Already had nystatin sent at time of visit.. 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 Please advise Also requested a refill on patients nebulizer medication. Please advise. * Joselyn Chance RN - 05/05/2020 9:53 AM EDT RN CC contacted Ilda with [facility] and advised of home health referral. Ilda will review in [facility] and contact patient for home health services. * Joselyn Chance RN - 05/05/2020 9:51 AM EDT RN CC contacted [facility] to follow up on referral. Amada in intake has advised that patient lives outside of the service area for [facility] home care. Amada advised that [facility] services the area patient lives in. Contact for [facility] is Ilda and phone number is [phone]. * Joselyn Chance RN - 05/05/2020 8:55 AM EDT Care Management enrollment: - Date of longitudinal care management initiated: 05/05/20 - Reason for visit: Follow up for medication assistance. Assessment: - Patient symptoms/concerns: o Patient's reports patient is sleeping upon follow up call. Alban is listed on [facility] and reports patient will need medication for trench mouth. RN CC will send a message to regarding this request. Patients also reports patient was to have home health services ordered at visit on 05/03/20.RN CC will follow up with [facility] to determine if they are able to accept patient. - Ability to complete activities of daily living: o Patient's reports patient needs assistance with bathing. Patient is able to dress herself. - Patient utilizes: ??? cane ??? walker ??? Nebulizer machine - Tobacco use: o Patient's reports patient has never smoked. Impactable barriers: - Patient needs assistance with: - Medication cost Patient was seen in PCP office on Friday05/03/20 and prescribed Amitiza. Patient could not afford this prescription as it was over $100.00. RN CC has advised that samples of this medication are available for pharmacy picking technician. Patient's expressed interest in Meals on Wheels program. Patients denies current difficulty affording food and reports he has his own health issues that make traveling to the store difficult. RN CC will submit a referral to the [facility]ging and Disability Resource [facility]. Patients denied need for transportation or financial assistance at this time. Patients reports they had to file bankruptcy and in the middle of this process. RN CC encouraged to call should additional resources be needed. Medications: - Patient's declines to review medications at this time. - Patient's denies any questions or additional concerns related to medications at this time. Education/handouts: - Educated patient on on RN CC role in PCP office. RN CC also advised of the patient assistance program as a possible option for assistance with Amitiza. Patients was advised that financial documentation will be needed for patient and in order to submit application for assistance. - MyChart already active and access confirmed with patient. Goals: Goals Addressed This Visit's Progress ??? Stay Tobacco Free On track Next Steps: - Him Specialist contact information given / reviewed - Reviewed when to call PCP office, urgent care, or 911 - Him Specialist will continue to care manage patient documented in this encounter Plan of Treatment Upcoming Encounters Date Type Department Care Team (Late st Contact Info) Description 07/29/2024 9:00 AM EST Appointment [facility] [address] [place], [place] [id number] Jomar Kim MD [address] [place] [address] documented as of this encounter Goals Goal Patient Goal Type Associated Problems Recent Progress Patient-Stated? Author Blood Pressure < 140/90 Blood Pressure 110/72(04/27 2:44 PM EDT) No Rachel Rogers RMA BMI (Calculated) < 30 General 50.9( 2:44 PM EDT) No Rachel Rogers, MULU Eat better, exercise, reach an ideal body weight General No Ni Clinton, registered radiologic technologist Healing General On track(2018 9:18 AM EDT) [...] neuropathy weekly. ?? Refer to PCP and/or Major Account Manager, Vascular Specialist as indicated. ?? Monitor patient compliance with wound care, diabetes management and proper offloading. Stay Tobacco Free Lifestyle On track(2020 10:23 AM EDT) Wendy Moon LPN HEMOGLOBIN A1C < 7.0 Result Component 5.6(11/09/19 3:04 PM EST) Rachel Regan RMA documented as of this encounter Visit Diagnoses Diagnosis Enrolled in chronic care management- Primary documented in this encounter Discontinued Medications Medication Sig Discontinue Reason Start Date End Da te albuterol (PROVENTIL) 2.5 mg /3 mL (0.083 %) Inhl Solution for Nebulization Take 3 mL by nebulization every 4 hours as needed for Wheezing. Reorder 09/14/2019 05/05/2020 documented as of this encounter Care Teams Endband Sizer Relationship Specialty Start Date End Date Cristiane Shirley MD [address] [id number] PCP - General Family Medicine 08/20/18 12/29/23 Garett Holt MD Internal Medicine-Gastroenterolog y 12/22/12 Ruiz Stokes MD [address] [place] [address] Internal Medicine-Cardiovascular Disease 07/25/14 Yenny Schwab MD [address] [place] [address] Internal Medicine-Rheumatology 12/11/16 Joselyn Chance, RN Him Specialist Registered Nurse 05/05/20 03/08/21 documented as of this encounter
--- OUTSIDE RECORDS SUMMARY | 2024-07-22 16:06 | XMS_ITS | Encounter Summary ---
Author [place] [address] Care Team Providers Care Regional Sales Consultant Name Role Phone Garett Holt MD Unavailable [phone] Ruiz Stokes MD Unavailable [phone] Yenny Schwab MD Unavailable [phone] Cristiane Shirley MD Primary Care Provider [phone] Joselyn Chance RN Unavailable Unavail able Reason for Visit * Reason Comments Dehydration Pt to ER per Dr. Rhonda salas for possible dehydration. Pt c/o dizziness. CPTA: none Encounter Details Date Type Department Care Team (Late st Contact Info) Description 05/18/2020 1:11 PM EDT - 05/18/2020 5:52 PM EDT Emergency [facility] [place] [address] Geovanny Higgins MD [address] [place] [address] [place] [address] Dehydration (Primary Dx); Nausea Discharge Disposition: Home or Self Care Social [...] have Coronavirus / COVID-19? No / Unsure 05/18/2020 11:31 AM EDT documented as of this encounter Last Filed Vital Signs Vital Sign Reading Time Taken Comments Blood Pressure 106/56 05/18/2020 4:30 PM EDT Pulse 80 05/18/2020 3:38 PM EDT Temperature 37.3 ??C (99.2 ??F) 05/18/2020 1:20 PM ED T Respiratory Rate 18 05/18/2020 3:38 PM EDT Oxygen Saturation 96% 05/18/2020 5:40 PM EDT Inhaled Oxygen Concentration - - [...] Nitin Yousif CMA documented in this encounter Discharge Instructions * Discharge Instructions* Reyes Huynh DO - 05/18/2020 4:29 PM EDT Call 911 or go to the nearest Emergency Department immediately for worsening symptoms or any new orsevere symptoms, which include but are not limited to increasing or new pain, difficulty breathing,chest pain, lightheadedness, difficulty moving/talking, sensory loss, difficulty to control your bowel or bladder function, altered level of consciousness, neck stiffness, intractable nausea/vomiting, intractable pain, inability to tolerate oral hydration with fluids, fever >101, chills, severe or persistent bleeding, or any other concerns. Please take all new medications as prescribed and read the drug package inserts carefully. You should call us if you have any specific questions or concerns about these discharge instructions. You should also call to discuss the results and plan from today's visit with your primary care physician if any further questions arise going forward. * Attachments The following attachments cannot be sent through Care Everywhere. * Dehydration Adult [id number] (Libyan) * Nausea Adult [id number] (Libyan) documented in this encounter Medications at Time [...] 1 fluticasone propionate (FLONASE) 50 mcg/actuation Nasl Irving, SuspensionIndicati ons:ETD (Eustachian tube dysfunction), right Use [...] DAILY (WITH BREAKFAST). 90 Tab 05/03/2020 1 documented as of this encounter Ordered Prescriptions Prescription Sig Dispense Quantity Refills Last Filled Start Date End Date ondansetron (ZOFRAN-ODT) 4 mg Oral Tablet, Rapid DissolveIndications :Nausea Take 1 Tab by mouth every 6 hours. 20 Tab 2 05/18/2020 08/21/2020 documented in this encounter Discharge Disposition Disposition Code Departure Means Destination Home or Self Shelter documented in this encounter ED Notes * Leelee Head RN - 05/18/2020 3:13 PM EDT Report to Gallito Lares RN and Renetta Munoz RN * Betzaida Sanchez - 05/18/2020 2:01 PM EDT CHRIS SANTANA, PT'S DAUGHTER CALLED AND CONFIRMED INFO. HER INFO IS LISTED IN DEMOGRAPHIC'S. SHE WILLBE THIS PT'S RIDE HOME ONCE PT IS D/C FROM HOSPITAL. * Reyes Huynh DO - 05/18/2020 1:00 PM EDT Chief Complaint Patient presents with ??? Dehydration Pt to ER per Dr. Cuellar for possible dehydration. Pt c/o dizziness. CPTA: none This is a 65 y.o. female here for evaluation of abdominal pain, nausea and vomiting for the past three days. Pt is one month s/p laparoscopic incarcerated hernia repair. Today she notes mild chest tightness and dyspnea worse than baseline. Patient endorses dark black stools this morning as well butstates her bowel movements two days ago were normal. She endorses decreased PO intake, fevers and chills for the past two days as well. Patient was reportedly seen at her surgeon's office today whereshe complained of dizziness and sent in to the ED for further evaluation of possible dehydration. Patient History Allergies Allergen Reactions ??? Amitriptyline [...] every 4 hours as needed for Wheezing. 05/05/20 Yes Cristiane Shirley MD amLODIPine (NORVASC) 10 mg Oral Tablet TAKE 1 TAB BY MOUTH DAILY. 05/03/20 Yes Cristiane Shirley MD aspirin (ASPIRIN LOW DOSE) 81 mg Oral Tablet, Delayed Release (E.C.) Take 1 Tab by mouth daily. 09/14/19 Yes Cristiane Shirley MD atorvastatin (LIPITOR) 20 mg Oral Tablet TAKE 1 TABLET BY MOUTH EVERY DAY 05/03/20 Yes Janice Shirley MD Blood-Glucose Meter [facility] Please fill with what her ins will cover 11/15/15 Yes Cristiane Shirley MD cholecalciferol, vitamin D3, (VITAMIN D3) 25 mcg (1,000 unit) Oral Tablet Take 1 Tab by mouth daily. 09/14/19 Yes Cristiane Shirley MD fluticasone propionate (FLONASE) 50 mcg/actuation Nasl Irving, Suspension Use 1 spray(s) in each nostril once daily 01/05/20 Yes Cristiane Shirley MD fUROsemide (LASIX) 40 mg Oral Tablet Take 1 Tab by mouth daily as needed. 05/03/20 Yes Janice Shirley MD lisinopriL (PRINIVIL;ZESTRIL) 20 mg Oral Tablet tablet TAKE 1 TAB BY MOUTH DAILY. 05/03/20 Yes Cristiane Shirley MD lubiprostone (AMITIZA) 24 mcg Oral Capsule TAKE ONE CAPSULE BY MOUTH TWICE A DAY. THIS REPLACES LINZESS. 05/03/20 Yes Cristiane Shirley MD metFORMIN (GLUCOPHAGE) 500 mg Oral Tablet TAKE 1 TAB BY MOUTH DAILY (WITH BREAKFAST). 05/03/20 Yes Cristiane Shirley MD omeprazole (PRILOSEC) 20 mg Oral Capsule, Delayed Release(E.C.) TAKE 1 CAP BY MOUTH DAILY. 05/03/20 Yes Cristiane Shirley MD oxybutynin (DITROPAN-XL) 10 mg Oral Tablet Extended Rel 24 hr Take 1 Tab by mouth 2 times daily. 04/26/20 Yes Cristiane Shirley MD oxyCODONE-acetaminophen (PERCOCET) 5-325 mg Oral Tablet Take 1-2 Tabs by mouth every 4 hours as needed for Major Surgery/Trauma (G89.18). May take 1-2 tablets every 4 hours as needed for pain Yes Provider, Historical CALCIUM ORAL Take 1 Tab by mouth daily. Provider, Historical celecoxib (CELEBREX) 200 mg Oral Capsule Take 1 Cap by mouth daily. Patient not taking: Reported on 05/18/2020 09/14/19 Cristiane Shirley MD docusate sodium (COLACE) 100 mg Oral Capsule Take 1 Cap by mouth 2 times daily. Patient not taking: Reported on 05/18/2020 09/14/19 Cristiane Shirley MD loratadine (CLARITIN) 10 mg Oral Tablet Take 1 Tab by mouth daily. Patient not taking: Reported on 05/18/2020 09/14/19 Cristiane Shirley MD Past Medical History: Past [...] History: reports that she quit smoking about 36 years ago. Her smoking use included cigarettes. She started smoking about 48 years ago. She has a 18.00 pack-year smoking history. She has neverused smokeless tobacco. She reports being sexually active and has had partner(s) who are Male. She reports using the following method of control/protection: Post-menopausal. She reports that she does not drink alcohol or use drugs. E-Cigarettes (such as Vapes or [...] BIOPSY ; Surgeon: Christa Chavez MD; Location: [facility]; Service: General ??? CARDIAC CATHETERIZATION 04/2015 ??? CHOLECYSTECTOMY 1989 ??? COLONOSCOPY ??? COLONOSCOPY 02/17/2013 Surgeon: Garett Holt MD; Location: [facility]; Service: ??? DENTAL SURGERY upper and lower teeth removed ??? UPPER GASTROINTESTINAL ENDOSCOPY ??? UPPER GASTROINTESTINAL ENDOSCOPY 02/17/2013 Surgeon: Garett Holt MD; Location: [facility]; Service: ??? VENTRAL HERNIA REPAIR N/A 04/18/2020 DAVINCI ROBOTIC VENTRAL HERNIA REPAIR WITH MESH ; Surgeon: Regan Butts MD; Location: [facility]; Service: General Review of Systems Review of Systems Constitutional: Positive for chills and fever (subjective). HENT: Negative. Eyes: Negative. Respiratory: Negative for cough and chest tightness. Cardiovascular: Negative for chest pain, palpitations and leg swelling. Gastrointestinal: Positive for abdominal pain and nausea. Negative for diarrhea. Genitourinary: Negative for dysuria and frequency. Musculoskeletal: Negative. Skin: Negative for rash. Neurological: Negative. Negative for numbness and headaches. Psychiatric/Behavioral: Negative. All other systems reviewed and are negative. Physical Exam Blood pressure 134/61, pulse 78, temperature 99.2 ??F (37.3 ??C), temperature source Oral, resp. rate 17, SpO2 99 %, not currently . Physical Exam Vitals signs and nursing note reviewed. Constitutional: General: She is not in acute distress. Appearance: She is well-developed. She is obese. HENT: Head: Normocephalic. Eyes: Conjunctiva/sclera: Conjunctivae normal. Pupils: Pupils are equal, round, and reactive to light. Neck: Musculoskeletal: Normal range of motion and neck supple. Cardiovascular: Rate and Rhythm: Normal rate and regular rhythm. Heart sounds: No murmur. No friction rub. No gallop. Pulmonary: Effort: Pulmonary effort is normal. Breath sounds: Normal breath sounds. Abdominal: General: Bowel sounds are normal. There is no distension. Palpations: Abdomen is soft. Tenderness: There is no abdominal tenderness. Comments: Pt very tender to palpation over the umbilicus. Umbilicus is warm to touch. Exam limited secondary to patient discomfort. Genitourinary: Rectum: Guaiac result negative. Comments: Digital rectal exam with RN in the room. Musculoskeletal: Comments: Mildly tender to palpation over the right lower leg. Lymphadenopathy: Cervical: No cervical adenopathy. Skin: General: Skin is warm and dry. Findings: No rash. Comments: No skin changes noted along the posterior aspect of the right calf. Abdominal incisions are well healed. Neurological: Mental Status: She is alert and oriented to person, place, and time. Procedures Radiology/EKG/Labs: CMP unremarkable Lactate unremarkable CBC showed mild anemia with H&H of 11.0/34.2, improved from previous. UA showed trace leukocyte esterase, otherwise unremarkable. Lipase unremarkable COVID negative CT Abdomen pending at sign out ED Course: Appropriate laboratory and radiology studies reviewed This patient arrived to the ED from f/u apptment with her general surgeon 1 month s/p incarcerated hernia repair surgery. Per surgery, she had vomited this morning and she was lightheaded in their office. In the ED, pt complained of abdominal pain, described an episode of melena this morning thoughDRE was negative. Labs were unremarkable with CT Abdomen pending at time of sign out. At this time, pt is stable and improving with IVF and Zofran. If CT Abdomen is negative for acute pathology including, but not limited to, post surgical complication, will discharge home on Zofran and advise f/u with her PCP in 3-4 days. Medications have already been prescribed to patient pharmacy and oncoming provider updated on plan of care. ED Clinical Impression: Dehydration Nausea Critical Care time Condition at Discharge/Transfer from Department: Improved This chart was completed using voice recognition technology and may contain unintended errors Reyes Huynh DO Resident 05/18/20 1630 Cosigned by Geovanny Higgins MD at 05/19/2020 7:41 AM EDT Associated attestation - Geovanny Higgins MD - 05/19/2020 7:41 AM EDT EMERGENCY DEPARTMENT SUPERVISING PHYSICIAN NOTE I have seen this patient & have reviewed history and findings with the resident physician, as well as provided direct personal supervision as needed. I was present for galeana portions of procedures performed. I concur with their assessment and plans as recorded. I've participated in medical management, monitoring, and treatment of this patient with the resident physician. I have reviewed document ation, test results, and laboratory results in the interim. Care plan has been developed collaboratively. Alyssa Jamil is a 65 y.o. year old female here for Dehydration (Pt to ER per Dr. Cuellar for possible dehydration. Pt c/o dizziness. CPTA: none) . POD 30 s/p hernia repair with mesh. Reporting dizziness with standing, concerns for dehydration with N/V at home. Sent from Gen Surg office. ED COURSE & MEDICAL DECISION MAKING Pertinent Labs & Imaging studies reviewed. (See chart for details) CT ABD PEL ED FAST W CONTRAST Final Result Recent ventral hernia repair without evidence of free air, free fluid, abscess, or bowel obstruction. There is however stranding in the subcutaneous and intraperitoneal fat on both sides of the mesh which is nonspecific but can be seen in fat necrosis. - Labs Reviewed URINALYSIS - Abnormal Result Value UA Color Yellow UA Appear Hazy (*) UA Glucose Negative UA Ketones Negative UA Blood Negative UA pH 7.0 UA Protein Negative UA Urobilinogen 2.0 (*) UA Bili Negative UA Nitrite Negative UA Leuk Est Trace (*) UA Spec Grav 1.023 UA WBC 4 UA RBC 0 UA Squam Epi 4+ UA Mucus Trace CBC WITH DIFF - Abnormal WBC 9.5 RBC 4.12 Hgb 11.0 (*) Hct 34.2 (*) MCV 83.0 MCH 26.8 (*) MCHC 32.3 RDW 17.0 (*) Platelet 227 MPV 8.4 Neut Percent 67.2 Lymph Percent 18.1 Meriwether Percent 10.0 Eos Percent 4.0 Baso Percent 0.7 Neut # 6.4 Lymph # 1.7 Meriwether # 1.0 Eos# 0.4 Baso # 0.1 COMPREHENSIVE METABOLIC PANEL - Abnormal Sodium 141 Potassium 4.1 Chloride 102 Total CO2 27 Anion Gap 12 Calcium 10.3 Glucose Lvl 118 (*) BUN 16 Creatinine 0.71 Albumin 4.1 Total Protein 7.7 Bili Total 0.3 ALT 13 AST 16 Alk Phos 89 GFR Afr Am 104 GFR Non Afr Am 90 CORONAVIRUS 2019 POCT - Normal COV19 RNA POCT Negative Narrative: The ID NOW is an isothermal nucleic [...] alternate method if a negative result is consistent with clinical signs and symptoms or if necessary for patient management. Farrell ID NOW Provider Fact Sheet: https://www.fda.gov/media/953059/download Farrell ID NOW Patient Fact Sheet: https://www.fda.gov/media/963255/download LIPASE LEVEL - Normal Lipase Lvl 29 LACTIC ACID - Normal Lactic Acid 1.2 POCT OCCULT BLOOD STOOL - Normal Fec Heme NEG Lot Number Expiration Date Orders Placed This Encounter Procedures Coronavirus 2019 POCT:Symptomatic or Exposure; 05/16/[address] ABD PEL ED FAST W IV CONTRAST Urinalysis CBC with Auto Diff Lipase Level Comprehensive Metabolic Panel Lactic Acid POCT occult blood stool Medications Administered Medications sodium chloride 0.9 % 1,000 mL IV bolus ( Intravenous Stopped 05/18/20 7092) ondansetron (ZOFRAN-ODT) disintegrating tablet 4 mg (4 mg Oral Given 05/18/20 1623) iopamidoL (ISOVUE-370) 76 % injection (LOW) 100 mL (100 mL Intravenous Given 05/18/20 1158) Prescriptions @ discharge Discharge Medication List as of 05/18/2020 5:35 PM START taking these medications Details ondansetron (ZOFRAN-ODT) 4 mg Oral Tablet, Rapid Dissolve Take 1 Tab by mouth every 6 hours., Oral,Disp-20 Tab,R-2, Normal Exam findings with generalized abd pain. No peritonitis. Slightly dry. Agree with plan and workup. Findings outstanding for CT at time of handoff to Dr Clayton who will proceed with d/c home if CT abd/pelvis is negative for acute pathology or surgical complication and patient remains improved. FINAL IMPRESSION 1. Dehydration 2. Nausea Condition at Discharge/Transfer from Department: Stable In [...] recognition technology and may contain unintended errors This chart was completed using voice recognition technology and may contain unintended errors * Gera Clayton MD - 05/18/2020 1:00 PM EDT Patient seen and examined by me, follow up on CT, per turnover, there is minimal inflammatory stranding around her mesh repair, she does have some mild tenderness on exam but no rebound or guarding, her labs are reassuring she is nontoxic and afebrile. Case discussed with Dr. Won Nina at 5:[address] readings with him and he is comfortable with discharge home. This chart was completed using voice recognition technology and may contain unintended errors Gera Clayton MD 05/18/20 1329 documented in this encounter Plan of Treatment Upcoming Encounters Date Type Department Care Team (Late st Contact Info) Description 07/29/2024 9:00 AM EST Appointment [facility] [address] [place] [address] Jomar Kim MD [address] [place] [address] documented as of this encounter Goals Goal Patient Goal Type Associated Problems Recent Progress Patient-Stated? 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 ?? Refer to PCP and/or Laboratory Manager, Vascular Specialist as indicated. ?? Monitor patient compliance with wound care, diabetes management and proper offloading. Stay Tobacco Free Lifestyle On track(2020 10:23 AM EDT) No Wendy Espinoza LPN HEMOGLOBIN A1C < 7.0 Result Component 5.6(11/09/19 24 3:04 PM EST) No Rachel Rogers RMA documented as of this encounter Procedures Procedure Name Priority Date/Time Associated Diagnosis Comments CT ABD PEL ED FAST W CONTRAST STAT 05/18/2020 4:50 PM EDT POCT OCCULT BLOOD STOOL STAT 05/18/2020 3:08 PM EDT CORONAVIRUS 2019 POCT Routine 05/18/2020 2:39 PM EDT EXTRA CHRISTIANSEN URINE CX STAT 05/18/2020 2 :39 PM EDT URINALYSIS STAT 05/18/2020 2:39 PM EDT CBC WITH DIFF STAT 05/18/2020 1:54 PM EDT LIPASE LEVEL STAT 05/18/2020 1:54 PM EDT LACTIC ACID STAT 05/18/2020 1:54 PM EDT COMPREHENSIVE METABOLIC PANEL STAT 05/18/2020 1:54 PM EDT documented in this encounter Results * CT ABD PEL ED FAST W CONTRAST (05/18/2020 4:50 PM EDT) Anatomical Region Laterality Modality Abdomen, Pelvis Computed Tomogra phy 05/18/2020 4:50 PM EDT Impressions 05/18/2020 5:13 PM EDT Recent ventral hernia repair without evidence of free air, free fluid, abscess, or bowel obstruction. There is however stranding in the subcutaneous and intraperitoneal fat on both sides of the mesh which is nonspecific but can be seen in fat necrosis. - Narrative 05/18/2020 5:[address] ABDOMEN AND PELVIS WITH CONTRAST (FAST), 05/18/2020 4:50 PM CLINICAL HISTORY: ??-recent hernia repair, abd pain, vomiting, ? melena, cannot tolerate oral contrast due to vomiting COMPARISON: ??05/17/2020 PROCEDURE COMMENTS: ??Multi-detector volumetric scanning of the abdomen and pelvis with multiplanar reformatting per expedited protocol. ??100 mL Isovue 370 IV. Automated exposure control for dose reduction was used. CTDIvol: 22.8 mGy. DLP: 1053 mGy-cm. FINDINGS: ?? LOWER THORAX: ??Lung bases unremarkable. ABDOMEN AND PELVIS: There has been interval ventral hernia repair. In both the subcutaneous cutaneous tissues anteriorly as well as the intraperitoneal fat, there is diffuse stranding and inflammatory change which could be partially external plane by some bruising from surgery. However, fat necrosis with a very similar appearance and could be quite painful. No discrete fluid collection or hemorrhage. No abscess. Liver, spleen, pancreas, and adrenal glands are unremarkable. Kidneys enhance and are nonhydronephrotic. Prior cholecystectomy. Unremarkable biliary system. No bowel obstruction or acute inflammatory process. No evidence of appendicitis. Pelvic viscera unremarkable. No free fluid or adenopathy. No acute osseous lesion identified. Procedure Note Kuldip Keith MD - 05/18/2020 CT ABDOMEN AND PELVIS WITH CONTRAST (FAST), 05/18/2020 4:50 PM CLINICAL HISTORY: -recent hernia repair, abd pain, vomiting, ? melena,cannot tolerate oral contrast due to vomiting COMPARISON: 05/17/2020 PROCEDURE COMMENTS: Multi-detector volumetric scanning of the abdomenand pelvis with multiplanar reformatting per expedited protocol. 100 mLIsovue 370 IV. Automated exposure control for dose reduction was used. CTDIvol: 22.8mGy. DLP: 1053 mGy-cm. FINDINGS: LOWER THORAX: Lung bases unremarkable. ABDOMEN AND PELVIS: There has been interval ventral hernia repair. In boththe subcutaneous cutaneous tissues anteriorly as well as the intraperitonealfat, there is diffuse stranding and inflammatory change which could bepartially external plane by some bruising from surgery. However, fat necrosis with sharyn similar appearance and could be quite painful. No discrete fluidcollection or hemorrhage. No abscess. Liver, spleen, pancreas, and adrenal glands are unremarkable. Kidneys enhance and are nonhydronephrotic. Priorcholecystectomy. Unremarkable biliary system. No bowel obstruction or acute inflammatory process. No evidence ofappendicitis. Pelvic viscera unremarkable. No free fluid or adenopathy. No acute osseous lesion identified. IMPRESSION: Recent ventral hernia repair without evidence of free air, free fluid, abscess, or bowel obstruction. There is however stranding in the subcutaneous and intraperitoneal fat on both sides of the mesh which is nonspecific but can be seen in fat necrosis. - us Geovanny Higgins MD IMG CT ORDERABLES Final R esult * POCT OCCULT BLOOD STOOL (05/18/2020 3:08 PM EDT) Fec Heme NEG NEG [facility] Lot Number [facility] Expiration Date [facility] 05/18/2020 3:08 PM EDT Geovanny Higgins MD POINT OF CARE TEST ORDERA BLES Final Result Performing Organization Address [facility] Co de Phone Number [facility] [address] [place] [address] * EXTRA CHRISTIANSEN URINE CX (05/18/2020 2:39 PM EDT) Urine URINE SPECIMEN COLLECTION, CLEAN CATCH / Unknown 05/18/2020 2:39 PM EDT 05/18/2020 2:58 PM EDT Geovanny Higgins MD MICROBIOLOGY - GENERAL OR DERABLES Final Result Performing Organization Address [facility] Co de Phone Number [facility] [address] [place] [address] * (ABNORMAL) URINALYSIS (05/18/2020 2:39 PM EDT) Pathologist [facility] UA Color Yellow 05/18/2020 3:11 PM EDT [facility] UA Appear Hazy(A) Clear 05/18/2020 3:11 PM EDT [facility] UA Glucose Negative Negative mg/dL 05/18/2020 3:11 PM EDT [facility] UA Ketones Negative Negative mg/dL 05/18/2020 3:11 PM EDT [facility] UA Blood Negative Negative 05/18/2020 3:11 PM EDT [facility] UA pH 7.0 5.0 - 8.0 pH 05/18/2020 3:11 PM EDT [facility] UA Protein Negative Negative mg/dL 05/18/2020 3:11 PM EDT [facility] UA Urobilinogen 2.0(A) <=1 mg/dL 0 3:11 PM EDT [facility] UA Bili Negative Negative 05/18/2020 3:11 PM EDT [facility] UA Nitrite Negative Negative 05/18/2020 3:11 PM EDT [facility] UA Leuk Est Trace(A) Negative 05/18/2020 3:11 PM EDT [facility] UA Spec Grav 1.023 1.001 - 1.035 no units 05/18/2020 3:11 PM EDT [facility] Comment:Reference range dano d for random specimens only. UA WBC 4 0 - 4 /HPF 05/18/2020 3:11 PM EDT [facility] UA RBC 0 0 - 3 /HPF 05/18/2020 3:11 PM EDT [facility] UA Squam Epi 4+ /LPF 05/18/2020 3:11 PM EDT [facility] UA Mucus Trace /LPF 05/18/2020 3:11 PM EDT [facility] Urine URINE SPECIMEN COLLECTION, CLEAN CATCH / Unknown 05/18/2020 2:39 PM EDT 05/18/2020 2:58 PM EDT Geovanny Higgins MD URINE ORDERABLES Final Re sult [facility] [address] , [place] [address] * CORONAVIRUS 2019 POCT (05/18/2020 2:39 PM EDT) COV19 RNA POCT Negative Negative 05/18/2020 3:46 PM EDT [facility] Swab NASAL / Unknown 05/18/2020 2 :39 PM EDT 05/18/2020 3:28 PM EDT Narrative [facility] - 05/18/2020 3:46 PM EDT The ID NOW is an isothermal nucleic [...] alternate method if a negative result is consistent with clinical signs and symptoms or if necessary for patient management. Farrell ID NOW Provider Fact Sheet: https://www.fda.gov/media/337082/download Farrell ID NOW Patient Fact Sheet: ??https://www.fda.gov/media/750561/download Geovanny Higgins MD MICROBIOLOGY - GENERAL OR DERABLES Final Result Performing Organization Address [facility]/ZIP Co de Phone Number [facility] [address] [place] [address] * LACTIC ACID (05/18/2020 1:54 PM EDT) Pathologist [facility] Lactic Acid 1.2 0.5 - 1.9 mmol/L 05/18/2020 2:12 PM EDT [facility] Blood VENOUS BLOOD / Unknown Venipuncture / Unknown 05/18/2020 1:54 PM EDT 05/18/2020 1:59 PM EDT Geovanny Higgins MD CHEMISTRY ORDERABLES Mercedes l Result Performing Organization Address [facility] Co de Phone Number [facility] [address] [place] [address] * (ABNORMAL) COMPREHENSIVE METABOLIC PANEL (05/18/2020 1:54 PM EDT) Sodium 141 136 - 145 mmol/L 05/18/2020 2:15 PM EDT [facility] Potassium 4.1 3.5 - 5.0 mmol/L 05/18/2020 2:15 PM EDT [facility] Chloride 102 98 - 107 mmol/L 05/18/2020 2:15 PM EDT [facility] Total CO2 27 22 - 29 mmol/L 05/18/2020 2:15 PM EDT [facility] Anion Gap 12 7 - 16 mmol/L 05/18/2020 2:15 PM EDT [facility] Calcium 10.3 8.8 - 10.4 mg/dL 05/18/2020 2:15 PM EDT [facility] Glucose Lvl 118(H) 82 - 100 mg/dL 05/18/2020 2:15 PM EDT [facility] BUN 16 8 - 23 mg/dL 05/18/2020 2:15 PM EDT [facility] Creatinine 0.71 0.51 - 1.30 mg/dL 05/18/2020 2:15 PM EDT [facility] Albumin 4.1 3.2 - 4.6 gm/dL 05/18/2020 2:15 PM EDT [facility] Total Protein 7.7 6.4 - 8.3 gm/dL 05/18/2020 2:15 PM EDT [facility] Bili Total 0.3 0.1 - 1.3 mg/dL 05/18/2020 2:15 PM EDT [facility] ALT 13 <=41 U/L 05/18/2020 2:15 PM EDT [facility] AST 16 <=40 U/L 05/18/2020 2:15 PM EDT [facility] Alk Phos 89 36 - 123 U/L 05/18/2020 2:15 PM EDT [facility] GFR Afr Am 104 >=60 mL/min/1.7 3 m2 05/18/2020 2:15 PM EDT [facility] GFR Non Afr Am 90 >=60 mL/min/1.7 3 m2 05/18/2020 2:15 PM EDT [facility] Comment: This estimated GFR was calculated [...] VENOUS BLOOD / Unknown Venipuncture / Unknown 05/18/2020 1:54 PM EDT 05/18/2020 1:59 PM EDT us Geovanny Higgins MD CHEMISTRY ORDERABLES Mercedes lelo Result [facility] [address] [place] [id number] * LIPASE LEVEL (05/18/2020 1:54 PM EDT) Pathologist [facility] Lipase Lvl 29 13 - 60 U/L 05/18/2020 2:15 PM EDT [facility] Blood VENOUS BLOOD / Unknown Venipuncture / Unknown 05/18/2020 1:54 PM EDT 05/18/2020 1:59 PM EDT Geovanny Higgins MD CHEMISTRY ORDERABLES Merecdes lelo Result [facility] [address] [place] [address] * (ABNORMAL) CBC WITH DIFF (05/18/2020 1:54 PM EDT) [facility] WBC 9.5 4.0 - 11.0 x10(3)/mcL 05/18/2020 2:10 PM EDT [facility] RBC 4.12 3.80 - 5.10 x10(6)/mcL 05/18/2020 2:10 PM EDT [facility] Hgb 11.0(L) 12.0 - 15.6 g/dL 05/18/2020 2:10 PM EDT [facility] Hct 34.2(L) 35.7 - 45.9 % 05/18/2020 2:10 PM EDT [facility] MCV 83.0 82.5 - 99.8 fL 05/18/2020 2:10 PM EDT [facility] MCH 26.8(L) 27.0 - 34.3 pg 05/18/2020 2:10 PM EDT [facility] MCHC 32.3 32.1 - 35.3 g/dL 05/18/2020 2:10 PM EDT [facility] RDW 17.0(H) 11.5 - 15.0 % 05/18/2020 2:10 PM EDT [facility] Platelet 227 144 - 423 x10(3)/mcL 05/18/2020 2:10 PM EDT [facility] MPV 8.4 6.8 - 10.8 fL 05/18/2020 2:10 PM EDT [facility] Neut Percent 67.2 % 05/18/2020 2:10 PM EDT [facility] Lymph Percent 18.1 % 05/18/2020 2:10 PM EDT [facility] Meriwether Percent 10.0 % 05/18/2020 2:10 PM EDT [facility] Eos Percent 4.0 % 05/18/2020 2:10 PM EDT [facility] Baso Percent 0.7 % 05/18/2020 2:10 PM EDT [facility] Neut # 6.4 1.8 - 7.7 x10(3)/[facility] 05/18/2020 2:10 PM EDT [facility] Lymph # 1.7 0.6 - 4.8 x10(3)/[facility] 05/18/2020 2:10 PM EDT [facility] Meriwether # 1.0 0.0 - 1.3 x10(3)/[facility] 05/18/2020 2:10 PM EDT [facility] Eos# 0.4 0.0 - 0.5 x10(3)/[facility] 05/18/2020 2:10 PM EDT [facility] Baso # 0.1 0.0 - 0.2 x10(3)/[facility] 05/18/2020 2:10 PM EDT [facility] Blood VENOUS BLOOD / Unknown Venipuncture / Unknown 05/18/2020 1:54 PM EDT 05/18/2020 1:59 PM EDT Geovanny Higgins MD HEMATOLOGY ORDERABLES Fin al Result Performing Organization Address City/State/[facility] Co de Phone Number [facility] [address] [place] [phone] documented in this encounter Visit Diagnoses Diagnosis Dehydration- Primary Nausea Nausea alone documented in this encounter Administered Medications Inactive Administered Medications - up to 1 most recent administrations Medication Order MAR Action Action Date Dose Rate Site iopamidoL (ISOVUE-370) 76 % injection (LOW) 100 mL 100 mL, Intravenous, ONCE PRN, 1 dose, Starting on Cyn 05/18/20 at 1651, Until Cyn 05/18/20 at 1658, Radiography/Imaging, Radiology Procedure, VESICANT , CT (Contrasts) Given 05/18/2020 4:58 PM EDT 100 mL ondansetron (ZOFRAN-ODT) disintegrating tablet 4 mg 4 mg, Oral, ONCE, 1 dose, On Cyn 05/18/20 at 1600, Dissolve in mouth Given 05/18/2020 4:25 PM EDT 4 mg sodium chloride 0.9 % 1,000 mL IV bolus Intravenous, ONCE, 1 dose, On Cyn 05/18/20 at 1345, at 983.6 mL/hr IV Started 05/18/2020 2:36 PM EDT 983.6 mL/hr sodium chloride 0.9% IV line flush 50 mL 50 mL, Intravenous, at 999 mL/hr, PRN, Starting on Cyn 05/18/20 at 1341, Until Cyn 05/18/20 at 2152, Line Care, Flush with 50 mL after IVPB to insure complete administration of the dose. May use the saline infusion to back flush IVPB tubing as needed., Use this order to document priming and flushing IV line after medication administration. sodium chloride 0.9% syringe 5-10 mL 5-10 mL, Intravenous, PRN, Starting on Cyn 05/18/20 at 1341, Until Cyn 05/18/20 at 2152, Line Care, Flush with 5 mL saline pre/post IVP, and 5 mL prior to IVPB or blood product administration. Protocol for PERIPHERAL IV saline lock maintenance, flush with 3-5 mL saline syringe every 8 hours., Flush every shift or after IV medication sodium chloride 0.9% syringe Intravenous, ONCE PRN, 1 dose, Starting on Cyn 05/18/20 at 1651, Until Cyn 05/18/20 at 2152, Line Care, Flush every shift or after IV medication, CT (Contrasts) documented in this encounter Active and Recently Administered Medications Times are shown in EDT. Scheduled Medication Order 05/16/2020 05/17/2020 05/18/2020 ondansetron (ZOFRAN) injection 4 mg 4 mg, Intravenous, ONCE, 1 dose, On Cyn 05/18/20 at 1345, 1345 (Hold - Provide r: Renetta Rocha RN - Reason: Other - Comment: see alt) ondansetron (ZOFRAN-ODT) disintegrating tablet 4 mg (COMPLETED) 4 mg, Oral, ONCE, 1 dose, On Cyn 05/18/20 at 1600, Dissolve in mouth 1625 (Given - Provid er: Gallito Waterman RN) sodium chloride 0.9 % 1,000 mL IV bolus (COMPLETED) Intravenous, ONCE, 1 dose, On Cyn 05/18/20 at 1345, at 983.6 mL/hr 1436 (IV Started - P rovider: Yenny Melvin RN)1445 (Stopped - Provider: Yenny Melvin RN) PRN Medication Order 05/16/2020 05/17/2020 05/18/2020 iopamidoL (ISOVUE-370) 76 % injection (LOW) 100 mL (COMPLETED) 100 mL, Intravenous, ONCE PRN, 1 dose, Starting on Cyn 05/18/20 at 1651, Until Cyn 05/18/20 at 1658, Radiography/Imaging, Radiology Procedure, VESICANT , CT (Contrasts) 1658 (Given - Provid er: Eddy Mayfield, RT) sodium chloride 0.9% IV line flush 50 mL 50 mL, Intravenous, at 999 mL/hr, PRN, Starting on Cyn 05/18/20 at 1341, Until Cyn 05/18/20 at 2152, Line Care, Flush with 50 mL after IVPB to insure complete administration of the dose. May use the saline infusion to back flush IVPB tubing as needed., Use this order to document priming and flushing IV line after medication administration. sodium chloride 0.9% syringe 5-10 mL 5-10 mL, Intravenous, PRN, Starting on Cyn 05/18/20 at 1341, Until Cyn 05/18/20 at 2152, Line Care, Flush with 5 mL saline pre/post IVP, and 5 mL prior to IVPB or blood product administration. Protocol for PERIPHERAL IV saline lock maintenance, flush with 3-5 mL saline syringe every 8 hours., Flush every shift or after IV medication sodium chloride 0.9% syringe Intravenous, ONCE PRN, 1 dose, Starting on Cyn 05/18/20 at 1651, Until Cyn 05/18/20 at 2152, Line Care, Flush every shift or after IV medication, CT (Contrasts) documented in this encounter Orders Medications Ordered That Edwin ht Not Have Been Administered Count Last Ordered Date First Ordered Date ondansetron (ZOFRAN) injection 4 mg 1 05/18 sodium chloride 0.9% IV line flush 50 mL 1 05/18/2020 sodium chloride 0.9% syringe 1 05/18/2020 sodium chloride 0.9% syringe 5-10 mL 1 05/09 documented in this encounter Additional Health Concerns Infection Onset Date Last Indicated Resolved Time R/O COVID-19 05/18/2020 05/18/2020 05/18/2020 3:46 PM EDT documented as of this encounter Care Teams Regional Sales Consultant Relationship Specialty Start Date End Date Cristiane Shirley MD [address] [place], [place] [id number] PCP - General Family Medicine 08/20/18 12/29/23 Garett Holt MD Internal Medicine-Gastroenterolog y 12/22/12 Ruiz Stokes MD [address] [place], [place] [id number] Internal Medicine-Cardiovascular Disease 07/25/14 Yenny Schwab MD [address] [facility] [address] [place] [address] Internal Medicine-Rheumatology 12/11/16 Joselyn Chance, RN Consumer Education Specialist Registered Nurse 05/05/20 03/08/21 documented as of this encounter
--- OUTSIDE RECORDS SUMMARY | 2024-07-22 16:06 | XMS_ITS | Encounter Summary ---
Author Organization [place] [place] [address] Care Team Providers Care Diaper Machine Tender Name Role Phone Garett Holt MD Unavailable [phone] Ruiz Stokes MD Unavailable [phone] Yenny Schwab MD Unavailable [phone] Cristiane Shirley MD Primary Care Provider [phone] Joselyn Chance RN Unavailable Unavail able Reason for Visit * Reason Onset Date Comments ED Follow-Up Call 05/19/2020 Encounter Details Date Type Department Care Team (Late st Contact Info) Description 05/19/2020 Patient Outreach SEP Quality Transformation [address] [place] [address] Nuira Gonzalez BA, COS ED Follow-Up Call Social History Tobacco [...] encounter Progress Notes * Nuria Gonzalez - 05/19/2020 1:53 PM EDT ED follow-up outreach for ED visit on: 05/18/2020 Number of ED visits in last 12 months: 4 Spoke with: patient's (ok per acf) / did not respond to several questions that COS was asking. stating he does not want to bother pt. COS asked if she could call pt back on Friday and agreed. COS encouraged to call pcp office with any questions and educated about provider java application developer. Emergency Department Diagnosis: Dehydration Nausea Tell me why you went to the emergency department? Question not indicated due to disposition Have your symptoms improved since your visit? stating pt is sleeping now but still having stomach pain and unable to keep food down. Did you try to reach your provider prior to going to the emergency department? Question not indicated due to disposition Were you prescribed a medication during your ED visit? yes Were you able to get your prescription filled and picked up? No/ stating someone will picker box operator prescription for pt this afternoon Do you have any questions about your medication(s) or dosing schedule? no Are you able to afford your daily medications? yes Would you like to schedule an appointment with your primary care provider? stating he will have pt call the office when she is awake Tell me about your discharge instructions, what did the ED provider want you to do? COS reviewed discharge instructions with pt's What other questions or concerns can I help you with? Question not indicated due to disposition Education and/or resources provided: 31/03 On-call provider Socioeconomic questionnaire not addressed at this time. Question not indicated due to disposition Unable to address MyChart due to: disposition . documented in this encounter Plan of Treatment Upcoming Encounters Date Type Department Care Team (Late st Contact Info) Description 07/29/2024 9:00 AM EST Appointment [facility] [address] [place] [address] Jomar Kim MD [address] [place] [address] documented as of this encounter Goals Goal Patient Goal Type Associated Problems Recent Progress Patient-Stated? Author Blood Pressure < 140/90 Blood Pressure 110/72(04/27 2:44 PM EDT) No Rachel Rogers RMA BMI (Calculated) < 30 General 50.9( 024 2:44 PM EDT) No Rachel Rogers RMA Eat better, exercise, reach an ideal body weight General No Ni Clinton, senior oracle database developer Healing General On track(2018 9:18 AM EDT) [...] neuropathy weekly. ?? Refer to PCP and/or Physical Therapy Aides Teacher, Vascular Specialist as indicated. ?? Monitor patient compliance with wound care, diabetes management and proper offloading. Stay Tobacco Free Lifestyle On track(2020 10:23 AM EDT) Wendy Moon LPN HEMOGLOBIN A1C < 7.0 Result Component 5.6(11/09/19 24 3:04 PM EST) No Rachel Rogers RMA documented as of this encounter Visit Diagnoses Not on filedocumented in this encounter Care Teams Diaper Machine Tender Relationship Specialty Start Date End Date Cristiane Shirley MD [address] [place] [address] PCP - General Family Medicine 08/20/18 12/29/23 Garett Holt MD Internal Medicine-Gastroenterolog y 12/22/12 Ruiz Stokes MD [address] [place] [address] Internal Medicine-Cardiovascular Disease 07/25/14 Yenny Schwab MD [address] [facility] [address] [place] [address] Internal Medicine-Rheumatology 12/11/16 Joselyn Chance, RN Stock Worker Registered Nurse 05/05/20 03/08/21 documented as of this encounter
--- OUTSIDE RECORDS SUMMARY | 2024-07-22 16:06 | XMS_ITS | Encounter Summary ---
Author Organization [facility] [place] [address] Care Team Providers Care Supervisor Rose Grading Name Role Phone Garett Holt MD Unavailable [phone] Ruiz Stokes MD Unavailable [phone] Yenny Schwab MD Unavailable [phone] Cristiane Shirley MD Primary Care Provider [phone] Encounter Details Date Type Department Care Team (Latest Contact Info) Description 05/03/2020 Travel Social History Tobacco Use Types Packs/Day [...] Author No 09/14/2019 10:05 AM EST MorganBrynn RMA * Does this person have serious difficulty walking or climbing stairs? Answer Date of Assessment Author No 09/14/2019 10:05 AM EST MorganBrynn RMA * Does this person have difficulty dressing or bathing? Answer Date of Assessment Author No 09/14/2019 10:05 AM EST MorganBrynn RMA * Because of a physical, mental or emotional condition, does this person have difficulty doing errands alone such as visiting a doctor's office or shopping? Answer Date of Assessment Author No 09/14/2019 10:05 AM EST MorganBrynn RMLeigh documented as of this encounter Mental [...] 9:00 AM EST Appointment [facility] [address] [place] [address] Jomar Kim MD [address] [place] [address] documented as of this encounter Goals Goal Patient Goal Type Associated Problems Recent Progress Patient-Stated? Author Blood Pressure < 140/90 Blood Pressure 110/72(04/27 2:44 PM EDT) No Rachel Rogers RMA BMI (Calculated) < 30 General 50.9( 2:44 PM EDT) No Rachel Rogers RMA Eat better, exercise, reach an ideal body weight General No Ni Clinton, executive vice president and chief financial officer Healing General On track(2018 9:18 AM EDT) [...] neuropathy weekly. ?? Refer to PCP and/or Lapidary Apprentice, Vascular Specialist as indicated. ?? Monitor patient compliance with wound care, diabetes management and proper offloading. Stay Tobacco Free Lifestyle On track(2020 10:23 AM EDT) No Wendy Espinoza LPN HEMOGLOBIN A1C < 7.0 Result Component 5.6(11/09/19 3:04 PM EST) No Rachel Rogers RMA documented as of this encounter Visit Diagnoses Not on filedocumented in this encounter Care Teams Supervisor Rose Grading Relationship Specialty Start Date End Date Cristiane Shirley MD [address] [place] [address] PCP - General Family Medicine 08/20/18 12/29/23 Garett Holt MD Internal Medicine-Gastroenterology 12/22/12 Ruiz Stokes MD [address] [place] [address] Internal Medicine-Cardiovascular Disease 07/25/14 Yenny Schwab MD [address] [facility] [address] [place], [place] [id number] Internal Medicine-Rheumatology 12/11/16 documented as of this encounter
--- OUTSIDE RECORDS SUMMARY | 2024-07-22 16:06 | XMS_ITS | Encounter Summary ---
Author Organization [place] [address] Care Team Providers Care Marketing Engineer Name Role Phone Garett Holt MD Unavailable [phone] Ruiz Stokes MD Unavailable [phone] Yenny Schwab MD Unavailable [phone] Cristiane Shirley MD Primary Care Provider Joselyn Chance RN Unavailable Unavail able Reason for Visit * Reason Onset Date Comments Release of Information 05/10/2020 med list Encounter Details Date Type Department Care Team (Late st Contact Info) Description 05/10/2020 Telephone [facility] [address] [place] [address] Cristiane Shirley MD [address] [place] [address] Release of Information (med list ) Social History Tobacco Use Types Packs/Day [...] encounter Miscellaneous Notes * Telephone Encounter - Asha Mishra MA - 05/10/2020 12:17 PM EDT [facility] aware and states she will come pick it up. * Telephone Encounter - Treva Juarez - 05/10/2020 12:13 PM EDT Med list printed -- tried to call [facility] but VM not set up * Telephone Encounter - Fide Monson - 05/10/2020 12:06 PM EDT Patient's caregiver is calling and states that home health threw away patient's med list that she had for her. She wanted to know if she could get another copy. She is listed on her A[facility]. documented in this encounter Plan of Treatment Upcoming Encounters Date Type Department Care Team (Late st Contact Info) Description 07/29/2024 9:00 AM EST Appointment [facility] [address] [facility]. [place], [place] [id number] Jomar Kim MD [address] [place] [address] documented as of this encounter Goals Goal Patient Goal Type Associated Problems Recent Progress Patient-Stated? Author Blood Pressure < 140/90 Blood Pressure 110/72(04/27 2:44 PM EDT) No Rachel Rogers RMA BMI (Calculated) < 30 General 50.9( 2:44 PM EDT) No Rachel Rogers RMA Eat better, exercise, reach an ideal body weight General No Ni Clinton, electrotyper apprentice Healing General On track(2018 9:18 AM EDT) [...] neuropathy weekly. ?? Refer to PCP and/or Instructor Warper, Vascular Specialist as indicated. ?? Monitor patient compliance with wound care, diabetes management and proper offloading. Stay Tobacco Free Lifestyle On track(2020 10:23 AM EDT) No Wendy Espinoza LPN HEMOGLOBIN A1C < 7.0 Result Component 5.6(11/09/19 3:04 PM EST) No Rachel Rogers RMA documented as of this encounter Visit Diagnoses Not on filedocumented in this encounter Care Teams Marketing Engineer Relationship Specialty Start Date End Date Cristiane Shirley MD [address] [place] [address] PCP - General Family Medicine 08/20/18 12/29/23 Garett Holt MD Internal Medicine-Gastroenterolog y 12/22/12 Ruiz Stokes MD [address] [place] [address] Internal Medicine-Cardiovascular Disease 07/25/14 Yenny Schwab MD [address] [address] Internal Medicine-Rheumatology 12/11/16 Joselyn Chance, RN Development Writer Registered Nurse 05/05/20 03/08/21 documented as of this encounter
--- OUTSIDE RECORDS SUMMARY | 2024-07-22 16:06 | XMS_ITS | Encounter Summary ---
Author Organization [place] [address] Care Team Providers Care Power Plant Operator Name Role Phone Garett Holt MD Unavailable Ruiz Stokes MD Unavailable [phone] Yenny Schwab MD Unavailable [phone] Cristiane Shirley MD Primary Care Provider [phone] Joselyn Chance RN Unavailable Unavail able Reason for Referral * Consultation (Urgent) - Closed Specialty Diagnoses / Procedures Referred By Ron bansal Referred To Contact Gastroenterology Diagnoses Follow-up examination following surgery Regan Butts MD [address] [facility] [address] [address] [place] [address] Phone: tel: fax: [facility] CV [address] [facility] [address] [place] [address] Phone: tel: fax: Referral ID Status Reason Start Date Expiration Date Visits Re quested Visits Authorized [id number] Closed 05/18/2020 05/18/2021 99 99 Question Answer Is this referral for colon cancer screening? No Provider Options First Available Comments Patient with reports of frequent non bilious emesis, she also says that she can't keep her medications down or even water. Reports sensation of being stuck in her throat. She also complains of dark/black stools. Reason for Visit * Reason Comments Post-Operative Exam PO Hernia Encounter Details Date Type Department Care Team (Late st Contact Info) Description 05/18/2020 11:05 AM EDT Office Visit [facility] Gen Surg EDG 132 [address] [facility] [address] [place] [address] Regan Butts MD [address] [place] [address] [address] [place] [address] Follow-up examination following surgery (Primary Dx); Obesity, Class III, BMI 40-49.9 (morbid obesity) ([facility]) Social History Tobacco Use Types Packs/Day Years [...] Sign Reading Time Taken Comments Blood Pressure 140/78 05/18/2020 12:14 PM EDT Pulse 81 05/18/2020 12:14 PM EDT Temperature 36.7 ??C (98.1 ??F) 05/18/2020 12:14 PM E DT Respiratory Rate 20 05/18/2020 12:14 PM EDT Oxygen Saturation - - Inhaled Oxygen Concentration - - Weight 110.2 kg (243 lb) 05/18/2020 12:14 PM EDT Height 162.6 cm (5' 4 ) 05/18/2020 12:14 PM EDT Body Mass Index 41.71 05/18/2020 12:14 PM EDT documented in this encounter Functional Status * Is the person deaf or does he/she have serious difficulty hearing? Answer Date of Assessment Author No 09/14/2019 10:05 AM EST Brynn Morgan, RMA * Is the person blind or does he/she have serious difficulty seeing even when wearing glasses? Answer Date of Assessment Author No 09/14/2019 10:05 AM EST Brynn Morgan, RMA * Does this person have serious difficulty walking or climbing stairs? Answer Date of Assessment Author No 09/14/2019 10:05 AM EST Brynn Morgan RMA * Does this person have difficulty dressing or bathing? Answer Date of Assessment Author No 09/14/2019 10:05 AM EST Brynn Morgan, RMA * Because of a physical, mental or emotional condition, does this person have difficulty doing errands alone such as visiting a doctor's office or shopping? Answer Date of Assessment Author No 09/14/2019 10:05 AM EST Brynn Morgan, RMA documented as of this encounter Mental Status * Because of a physical, mental or emotional condition, does this person have serious difficulty concentrating, remembering or making decisions? Answer Entry Date Author No 01/23/2019 9:05 AM EDT Nitin Yousif CMA documented in this encounter Progress Notes * Regan Butts MD - 05/18/2020 11:05 AM EDT EGS Follow-up Note S/p Robotic VHR with mesh 04/18 She is vomiting continuously, unable to keep down food and water for reportedly the last several days. Patient having difficulty supporting her own weight here in office. I am concerned she is not taking care of herself at home. She needs to be screened for dehydration. Sending to ED to evaluate more closely. She is also complaining of streaks of blood in her urine CBC/CMP to evaluate for hydration status. Regan Butts MD documented in this encounter Plan of Treatment Upcoming Encounters Date Type Department Care Team (Late st Contact Info) Description 07/29/2024 9:00 AM EST Appointment [facility] [address] [place] [id number] Jomar Kim MD [address] [facility] [place] [address] Scheduled Orders Name Type Priority Associated Diagnoses Orde r Schedule CBC Lab STAT Follow-up examination following surgery Obesity, Class III, BMI 40-49.9 (morbid obesity) (HCC) 1 Occurrences starting 05/18/2020 until 05/18/2021 COMPREHENSIVE METABOLIC PANEL Lab STAT Follow-up examination following surgery 1 Occurrences starting 05/18/2020 until 05/18/2021 Scheduled Referrals Name Type Priority Associated Diagnoses Order Schedule AMB REFERRAL TO GASTROENTEROLOGY Outpatient Referral Routine Follow-up examination following surgery Ordered: 05/18/2020 documented as of this encounter Goals Goal Patient Goal Type Associated Problems Recent Progress Patient-Stated? Author Blood Pressure < 140/90 Blood Pressure 110/72(04/27 2:44 PM EDT) No Rachel Rogers RMA BMI (Calculated) < 30 General 50.9( 024 2:44 PM EDT) No Rachel Rogers RMA Eat better, exercise, reach an ideal body weight General No Ni Clinton, forestry adviser Healing General On track(2018 9:18 AM EDT) [...] neuropathy weekly. ?? Refer to PCP and/or Grain Spouter, Vascular Specialist as indicated. ?? Monitor patient compliance with wound care, diabetes management and proper offloading. Stay Tobacco Free Lifestyle On track(2020 10:23 AM EDT) Wendy Moon LPN HEMOGLOBIN A1C < 7.0 Result Component 5.6(11/09/19 3:04 PM EST) Rachel Regan RMA documented as of this encounter Visit Diagnoses Diagnosis Follow-up examination following surgery- Primary Follow-up examination, following unspecified surgery Obesity, Class III, BMI 40-49.9 (morbid obesity) (HCC) Morbid obesity documented in this encounter Care Teams Power Plant Operator Relationship Specialty Start Date End Date Cristiane Shirley MD [address] [place], [place] [id number] PCP - General Family Medicine 08/20/18 12/29/23 Garett Holt MD Internal Medicine-Gastroenterolog y 12/22/12 Ruiz Stokes MD [address] [place] [address] Internal Medicine-Cardiovascular Disease 07/25/14 Yenny Schwab MD [address] [id number] Internal Medicine-Rheumatology 12/11/16 Joselyn Chance, RN Master Welder Registered Nurse 05/05/20 03/08/21 documented as of this encounter
--- OUTSIDE RECORDS SUMMARY | 2024-07-22 16:06 | XMS_ITS | Encounter Summary ---
Author Organization [facility] [place] [address] Care Team Providers Care Carbon Furnace Operator Name Role Phone Garett Holt MD Unavailable [phone] Ruiz Stokes MD Unavailable [phone] Yenny Schwab MD Unavailable [phone] Cristiane Shirley MD Primary Care Provider [phone] Joselyn Chance RN Unavailable Unavail able Encounter Details Date Type Department Care Team (Latest Contact Info) Description 05/25/2020 Travel Social History Tobacco Use Types Packs/Day [...] 9:00 AM EST Appointment [facility] [address] [place] [address] Jomar Kim MD [address] [place] [address] documented as of this encounter Goals Goal Patient Goal Type Associated Problems Recent Progress Patient-Stated? Author Blood Pressure < 140/90 Blood Pressure 110/72(04/27 2:44 PM EDT) No Rachel Rogers RMA BMI (Calculated) < 30 General 50.9( 2:44 PM EDT) Rachel Regan RMA Eat better, exercise, reach an ideal body weight General No Ni Clinton, medical claims analyst Healing General On track(2018 9:18 AM EDT) [...] weekly. ?? Refer to PCP and/or It Project Coordinator, Vascular Specialist as indicated. ?? Monitor patient compliance with wound care, diabetes management and proper offloading. Stay Tobacco Free Lifestyle On track(2020 10:23 AM EDT) Wendy Moon LPN HEMOGLOBIN A1C < 7.0 Result Component 5.6(11/09/19 24 3:04 PM EST) No Rachel Rogers RMA documented as of this encounter Visit Diagnoses Not on filedocumented in this encounter Care Teams Carbon Furnace Operator Relationship Specialty Start Date End Date Cristiane Shirley MD [address] [place] [address] PCP - General Family Medicine 08/20/18 12/29/23 Garett Holt MD Internal Medicine-Gastroenterolog y 12/22/12 Ruiz Stokes MD [address] [place] [id number] Internal Medicine-Cardiovascular Disease 07/25/14 Yenny Schwab MD [address] [facility] [address] [place] [id number] Internal Medicine-Rheumatology 12/11/16 Joselyn Chance, RN Bread Slicer Machine Registered Nurse 05/05/20 03/08/21 documented as of this encounter
--- OUTSIDE RECORDS SUMMARY | 2024-07-22 16:06 | XMS_ITS | Encounter Summary ---
Author Organization [facility] [place] [address] Care Team Providers Care Access Control Officer Name Role Phone Garett Holt MD Unavailable Ruiz Stokes MD Unavailable [phone] Yenny Schwab MD Unavailable [phone] Cristiane Shirley MD Primary Care Provider [phone] Encounter Details Date Type Department Care Team (Latest Contact Info) Description 05/01/2020 Travel Social History Tobacco Use Types Packs/Day [...] Author No 09/14/2019 10:05 AM EST MorganBrynn MUUL * Is the person blind or does [...] 9:00 AM EST Appointment [facility] [address] [place] [address] Jomar Kim MD [address] [place] [address] documented as of this encounter Goals Goal Patient Goal Type Associated Problems Recent Progress Patient-Stated? Author Blood Pressure < 140/90 Blood Pressure 110/72(04/27 2:44 PM EDT) No Rachel Rogers RMA BMI (Calculated) < 30 General 50.9( 2:44 PM EDT) No Rachel Rogers RMA Eat better, exercise, reach an ideal body weight General No Ni Clinton, interior design professor Healing General On track(2018 9:18 AM [...] neuropathy weekly. ?? Refer to PCP and/or Cattle Brander, Vascular Specialist as indicated. ?? Monitor patient compliance with wound care, diabetes management and proper offloading. Stay Tobacco Free Lifestyle On track(2020 10:23 AM EDT) No Wendy Espinoza LPN HEMOGLOBIN A1C < 7.0 Result Component 5.6(11/09/19 3:04 PM EST) No Rachel Rogers RMA documented as of this encounter Visit Diagnoses Not on filedocumented in this encounter Care Teams Access Control Officer Relationship Specialty Start Date End Date Cristiane Shirley MD [address] [place] [address] PCP - General Family Medicine 08/20/18 12/29/23 Garett Holt MD Internal Medicine-Gastroenterology 12/22/12 Ruiz Stokes MD [address] [place] [address] Internal Medicine-Cardiovascular Disease 07/25/14 Yenny Schwab MD [address] [facility] [address] [place], [place] [phone] Internal Medicine-Rheumatology 12/11/16 documented as of this encounter
--- OUTSIDE RECORDS SUMMARY | 2024-07-22 16:06 | XMS_ITS | Encounter Summary ---
Author Organization [place] [address] Care Team Providers Care Fish Hatchery Man Name Role Phone Garett Holt MD Unavailable [phone] Ruiz Stokes MD Unavailable [phone] Yenny Schwab MD Unavailable [phone] Cristiane Shirley MD Primary Care Provider Joselyn Chance RN Unavailable Unavail able Nuria Gonzalez BA, COS Unavailable Unavailable Encounter Details Date Type Department Care Team (Late st Contact Info) Description [facility]/19/2020 [facility] [place] [id number] Roxann Valero, RN Social History Tobacco Use Types Packs/Day Years [...] Nitin Yousif CMA documented in this encounter ED Notes * Roxann Valero RN - 05/19/2020 1:31 PM EDT Upon chart review, negative COVID-19 test result during ED visit on 05/18/2020. documented in this encounter Plan of Treatment Upcoming Encounters Date Type Department Care Team (Late st Contact Info) Description 07/29/2024 9:00 AM EST Appointment [facility] [address] [place] [id number] Jomar Kim MD [address] [place] [address] documented as of this encounter Goals Goal Patient Goal Type Associated Problems Recent Progress Patient-Stated? Author Blood Pressure < 140/90 Blood Pressure 110/72(04/27 2:44 PM EDT) No Rachel Rogers RMA BMI (Calculated) < 30 General 50.9( 024 2:44 PM EDT) No Rachel Rogers RMA Eat better, exercise, reach an ideal body weight General No Ni Clinton, handicraft or hobby shop manager Healing General On track(2018 9:18 AM [...] neuropathy weekly. ?? Refer to PCP and/or Tooling Supervisor, Vascular Specialist as indicated. ?? Monitor patient compliance with wound care, diabetes management and proper offloading. Stay Tobacco Free Lifestyle On track(2020 10:23 AM EDT) No Wendy Espinoza LPN HEMOGLOBIN A1C < 7.0 Result Component 5.6(11/09/19 24 3:04 PM EST) No Rachel Rogers RMA documented as of this encounter Visit Diagnoses Not on filedocumented in this encounter Care Teams Fish Hatchery Man Relationship Specialty Start Date End Date Cristiane Shirley MD [address] [place] [address] PCP - General Family Medicine 08/20/18 12/29/23 Garett Holt MD Internal Medicine-Gastroentero logy 12/22/12 Ruiz Stokes MD [address] [place] [address] Internal Medicine-Cardiovascul ar Disease 07/25/14 Yenny Schwab MD 6[address] [facility] 19 [place], [place] [id number] Internal Medicine-Rheumatology 12/11/16 Joselyn Chance, RN Machinist Helper Registered Nurse 05/05/20 03/08/21 Nuria Gonzalez BA, COS Case Poultry Cutter 06/15/20 06/15/20 documented as of this encounter
--- OUTSIDE RECORDS SUMMARY | 2024-07-22 16:06 | XMS_ITS | Encounter Summary ---
Author Organization [facility] [place] [address] Care Team Providers Care Carton Catcher Name Role Phone Garett Holt MD Unavailable [phone] Ruiz Stokes MD Unavailable [phone] Yenny Schwab MD Unavailable [phone] Cristiane Shirley MD Primary Care Provider [phone] Joselyn Chance RN Unavailable Unavail able Encounter Details Date Type Department Care Team (Latest Contact Info) Description 05/18/2020 Travel Social History Tobacco Use Types Packs/Day [...] 9:00 AM EST Appointment [facility] [address] [place] [address] Jomar Kim MD [address] [place] [address] documented as of this encounter Goals Goal Patient Goal Type Associated Problems Recent Progress Patient-Stated? Author Blood Pressure < 140/90 Blood Pressure 110/72(04/27 2:44 PM EDT) No Rachel Rogers RMA BMI (Calculated) < 30 General 50.9( 2:44 PM EDT) Rachel Regan RMA Eat better, exercise, reach an ideal body weight General No Ni Clinton, zipper ironer Healing General On track(2018 9:18 AM EDT) [...] neuropathy weekly. ?? Refer to PCP and/or Tar Man, Vascular Specialist as indicated. ?? Monitor patient [...] documented as of this encounter Care Teams Carton Catcher Relationship Specialty Start Date End Date Cristiane Shirley MD [address] [place] [address] PCP - General Family Medicine 08/20/18 12/29/23 Garett Holt MD Internal Medicine-Gastroenterolog y 12/22/12 Ruiz Stokes MD [address] [place] [address] Internal Medicine-Cardiovascular Disease 07/25/14 Yenny Schwab MD [address] [place] [address] Internal Medicine-Rheumatology 12/11/16 Joselyn hCance, RN Room Service Server Registered Nurse 05/05/20 03/08/21 documented as of this encounter
--- OUTSIDE RECORDS SUMMARY | 2024-07-22 16:06 | XMS_ITS | Encounter Summary ---
Author Organization [place] [address] Care Team Providers Care Hot Press Operator Name Role Phone Garett Holt MD Unavailable [phone] Ruiz Stokes MD Unavailable [phone] Yenny Schwab MD Unavailable [phone] Cristiane Shirley MD Primary Care Provider Joselyn Chance RN Unavailable Unavail able Reason for Visit * Reason Onset Date Comments Orders 05/11/2020 verbal orders Encounter Details Date Type Department Care Team (Late st Contact Info) Description 05/11/2020 Telephone [facility] [address] [place] [address] Cristiane Shirley MD [address] [place], [place] [phone] Orders (verbal orders ) Social History Tobacco Use Types Packs/Day [...] have Coronavirus / COVID-19? No / Unsure 05/11/2020 11:33 AM EDT documented as of this encounter [...] encounter Miscellaneous Notes * Telephone Encounter - Soledad Mcmillan RMA - 05/12/2020 1:25 PM EDT The patient has been notified of this information and all questions answered. * Telephone Encounter - Amy Issa - 05/12/2020 12:50 PM EDT Jose from [facility] is calling back Please reach out with orders * Telephone Encounter - Soledad Mcmillan RMA - 05/11/2020 5:29 PM EDT No answer * Telephone Encounter - Cristiane Shirley MD - 05/11/2020 5:28 PM EDT ok * Telephone Encounter - Fied Monson - 05/11/2020 9:10 AM EDT Horacio [facility] is requesting verbal orders for pt 1 x week for 2 weeks and 2 x week for 2 week for strengthening. He is always requesting social work for community resources and house keeping assistance living in poor conditions, documented in this encounter Plan of Treatment Upcoming Encounters Date Type Department Care Team (Late st Contact Info) Description 07/29/2024 9:00 AM EST Appointment [facility] [address] [place] [address] Jomar Kim MD [address] [place] [address] documented as of this encounter Goals Goal Patient Goal Type Associated Problems Recent Progress Patient-Stated? Author Blood Pressure < 140/90 Blood Pressure 110/72(04/27 2:44 PM EDT) No Rachel Rogers RMA BMI (Calculated) < 30 General 50.9( 2:44 PM EDT) No Rachel Rogers RMA Eat better, exercise, reach an ideal body weight General No Ni Clinton, form maker plaster Healing General On track(2018 9:18 AM EDT) [...] neuropathy weekly. ?? Refer to PCP and/or Records Specialist, Vascular Specialist as indicated. ?? Monitor patient compliance with wound care, diabetes management and proper offloading. Stay Tobacco Free Lifestyle On track(2020 10:23 AM EDT) No Wendy Espinoza LPN HEMOGLOBIN A1C < 7.0 Result Component 5.6(11/09/19 24 3:04 PM EST) No Rachel Rogers RMA documented as of this encounter Visit Diagnoses Not on filedocumented in this encounter Care Teams Hot Press Operator Relationship Specialty Start Date End Date Cristiane Shirley MD [address] [place] [id number] PCP - General Family Medicine 08/20/18 12/29/23 Garett Holt MD Internal Medicine-Gastroenterolog y 12/22/12 Ruiz Stokes MD [address] [place] [address] Internal Medicine-Cardiovascular Disease 07/25/14 Yenny Schwab MD [address] [place] [address] Internal Medicine-Rheumatology 12/11/16 Joselyn Chance, RN Pm Head Cook Registered Nurse 05/05/20 03/08/21 documented as of this encounter
--- OUTSIDE RECORDS SUMMARY | 2024-07-22 16:06 | XMS_ITS | Encounter Summary ---
Author Organization [facility] [place] [address] Care Team Providers Care Order Processing Manager Name Role Phone Garett Holt MD Unavailable [phone] Ruiz Stokes MD Unavailable [phone] Yenny Schwab MD Unavailable [phone] Cristiane Shirley MD Primary Care Provider [phone] Joselyn Chance RN Unavailable Unavail able Encounter Details Date Type Department Care Team (Latest Contact Info) Description 05/23/2020 Travel Social History Tobacco Use Types Packs/Day [...] 9:00 AM EST Appointment [facility] [address] [place] [address] Jomar Kim MD [address] [place] [address] documented as of this encounter Goals Goal Patient Goal Type Associated Problems Recent Progress Patient-Stated? Author Blood Pressure < 140/90 Blood Pressure 110/72(04/27 2:44 PM EDT) No Rachel Rogers RMA BMI (Calculated) < 30 General 50.9( 2:44 PM EDT) Rachel Regan RMA Eat better, exercise, reach an ideal body weight General No Ni Clinton, automotive center manager Healing General On track(2018 9:18 AM [...] neuropathy weekly. ?? Refer to PCP and/or Registered Radiologic Technologist, Vascular Specialist as indicated. ?? Monitor patient compliance with wound care, diabetes management and proper offloading. Stay Tobacco Free Lifestyle On track(2020 10:23 AM EDT) Wendy Moon LPN HEMOGLOBIN A1C < 7.0 Result Component 5.6(11/09/19 24 3:04 PM EST) No Rachel Rogers RMA documented as of this encounter Visit Diagnoses Not on filedocumented in this encounter Care Teams Order Processing Manager Relationship Specialty Start Date End Date Cristiane Shirley MD [address] [place] [address] PCP - General Family Medicine 08/20/18 12/29/23 Garett Holt MD Internal Medicine-Gastroenterolog y 12/22/12 Ruiz Stokes MD [address] [place] [id number] Internal Medicine-Cardiovascular Disease 07/25/14 Yenny Schwab MD 651 [facility] [address] [place] [phone] Internal Medicine-Rheumatology 12/11/16 Joseyln Chance, RN Project Specialist Registered Nurse 05/05/20 03/08/21 documented as of this encounter
--- OUTSIDE RECORDS SUMMARY | 2024-07-22 16:06 | XMS_ITS | Encounter Summary ---
Author Organization [place] [address] Care Team Providers Care Felt Strip Finisher Name Role Phone Garett Holt MD Unavailable [phone] Ruiz Stokes MD Unavailable [phone] Yenny Schwab MD Unavailable [phone] Cristiane Shirley MD Primary Care Provider Reason for Visit * Reason Comments Medication Refill Encounter Details Date Type Department Care Team (Late st Contact Info) Description 05/02/2020 Refill [facility] [address] [place] [address] Cristiane Shirley MD [address] [place] [address] Medication Refill Social History Tobacco Use Types [...] Filled Start Date End Date omeprazole (PRILOSEC) 20 mg Oral Capsule, Delayed Release(E.C.) TAKE 1 CAP BY MOUTH DAILY. 30 Cap 05/03/2020 07/18/2020 metFORMIN (GLUCOPHAGE) 500 mg Oral Tablet TAKE 1 TAB BY MOUTH DAILY (WITH BREAKFAST). 90 Tab 05/03/2020 10/24/2020 lisinopriL (PRINIVIL;ZESTRIL) 20 mg Oral Tablet tabletIndications: Essential hypertension TAKE 1 TAB BY MOUTH DAILY. 90 Tab 05/03/2020 10/24/2020 atorvastatin (LIPITOR) 20 mg Oral Tablet TAKE 1 TABLET BY MOUTH EVERY DAY 90 Tab 10 05/03/2020 08/10/2020 amLODIPine (NORVASC) 10 mg Oral TabletIndications: Essential hypertension TAKE 1 TAB BY MOUTH DAILY. 90 Tab 05/03/2020 10/24/2020 documented in this encounter Miscellaneous Notes * Telephone Encounter - Miranda Christina CPhT - 05/03/2020 11:49 AM EDT Amlodipine- Medication Refill Protocol passed. fleet mechanic Action: Approved refills to noted follow-up date by provider or protocol if no follow-up date noted. Lisinopril- Medication Refill Protocol passed. fleet mechanic Action: Approved refills to noted follow-up date by provider or protocol if no follow-up date noted. Metformin- Medication Refill Protocol passed. fleet mechanic Action: Approved refills to noted follow-up date by provider or protocol if no follow-up date noted. Atorvastatin- Medication Refill Protocol passed. fleet mechanic Action: Approved refills to noted follow-up date by provider or protocol if no follow-up date noted. Omeprazole- Medication Refill Protocol passed. fleet mechanic Action: Approved refills to noted follow-up date by provider or protocol if no follow-up date noted. documented in this encounter Plan of Treatment Upcoming Encounters Date Type Department Care Team (Late st Contact Info) Description 07/29/2024 9:00 AM EST Appointment [facility] [address] [place] [address] Jomar Kim MD [address] [place] [address] documented as of this encounter Goals Goal Patient Goal Type Associated Problems Recent Progress Patient-Stated? Author Blood Pressure < 140/90 Blood Pressure 110/72(04/27 2:44 PM EDT) No Rachel Rogers RMA BMI (Calculated) < 30 General 50.9( 2:44 PM EDT) No Rachel Rogers RMA Eat better, exercise, reach an ideal body weight General No Ni Clinton, belt loop machine operator Healing General On track(2018 9:18 AM [...] weekly. ?? Refer to PCP and/or Curriculum Designer, Vascular Specialist as indicated. ?? Monitor [...] Da te amLODIPine (NORVASC) 10 mg Oral TabletIndications:Essenti al hypertension Take 1 Tab by mouth daily. 12/15/2019 05/03/2020 atorvastatin (LIPITOR) 20 mg Oral Tablet TAKE 1 TABLET BY MOUTH EVERY DAY 12/15/2019 05/03/2020 lisinopriL (PRINIVIL;ZESTRIL) 20 mg Oral Tablet tabletIndications:Essenti al hypertension Take 1 Tab by mouth daily. 12/15/2019 05/03/2020 metFORMIN (GLUCOPHAGE) 500 mg Oral Tablet Take 1 Tab by mouth daily (with breakfast). 12/15/2019 05/03/2020 omeprazole (PRILOSEC) 20 mg Oral Capsule, Delayed Release(E.C.) Take 1 Cap by mouth daily. 09/14/2019 05/03/2020 documented as of this encounter Care Teams Felt Strip Finisher Relationship Specialty Start Date End Date Cristiane Shirley MD [address] [place] [address] PCP - General Family Medicine 08/20/18 12/29/23 Garett Holt MD Internal Medicine-Gastroenterology 12/22/12 Ruiz Stokes MD [address] [place] [address] Internal Medicine-Cardiovascular Disease 07/25/14 Yenny Schwab MD [address] [facility] Building [address] [place] [address] Internal Medicine-Rheumatology 12/11/16 documented as of this encounter
--- OUTSIDE RECORDS SUMMARY | 2024-07-22 16:06 | XMS_ITS | Encounter Summary ---
Author Organization [place] [address] Care Team Providers Care Printer Machine Name Role Phone Garett Holt MD Unavailable [phone] Ruiz Stokes MD Unavailable [phone] Yenny Schwab MD Unavailable [phone] Cristiane Shirley MD Primary Care Provider [phone] Joselyn Chance RN Unavailable Unavail able Reason for Visit * Reason Onset Date Comments Medication Management 05/03/2020 PT calling stating the medication prescribed at today's visit is too costly. Encounter Details Date Type Department Care Team (Late st Contact Info) Description 05/03/2020 Telephone [facility] [address] [place] [address] Cristiane Shirley MD [address] [place] [address] Medication Management (PT calling stating the medication prescribed at today's visit is too costly.) Social History Tobacco Use Types Packs/Day Years [...] Telephone Encounter - Joselyn Chance RN - 05/05/2020 8:21 AM EDT RN CC contacted patient and Alban answered as patient is sleeping. Patient is currently established with [facility] per . RN CC advised of patient assistance process for the Amitiza and documentation needed in order to submit. RN CC also advised that samples of Amitiza are available for brick picker. Patients expressed interest in patient assistance and will obtain the financial documentation needed to complete. See patient outreach from RN CC as this includes a full assessment. * Telephone Encounter - Cristiane Shirley MD - 05/03/2020 5:14 PM EDT Probably the amitiza. There is no cheap alternative. Do you think she would qualify for [facility]? * Telephone Encounter - lEisa Brown - 05/03/2020 2:49 PM EDT PT calling stating that medication prescribed at today's visit is too costly and cannot fill. Any alternatives Pls advise PT does not have med names [facility] [address] [place], [place] [address] [address] [address] [phone] documented in this encounter Plan of Treatment Upcoming Encounters Date Type Department Care Team (Late st Contact Info) Description 07/29/2024 9:00 AM EST Appointment [facility] [address] [place] [address] Jomar Kim MD [address] [place] [address] documented as of this encounter Goals Goal Patient Goal Type Associated Problems Recent Progress Patient-Stated? Author Blood Pressure < 140/90 Blood Pressure 110/72(04/27 2:44 PM EDT) No Rachel Rogers RMA BMI (Calculated) < 30 General 50.9( 024 2:44 PM EDT) No Rachel Rogers RMA Eat better, exercise, reach an ideal body weight General No Ni Clinton, contract serviceman Healing General On track(2018 9:18 AM EDT) [...] neuropathy weekly. ?? Refer to PCP and/or Netezza Developer, Vascular Specialist as indicated. ?? Monitor patient compliance with wound care, diabetes management and proper offloading. Stay Tobacco Free Lifestyle On track(2020 10:23 AM EDT) No Wendy Espinoza LPN HEMOGLOBIN A1C < 7.0 Result Component 5.6(11/09/19 24 3:04 PM EST) No Rachel Rogers RMA documented as of this encounter Visit Diagnoses Not on filedocumented in this encounter Care Teams Printer Machine Relationship Specialty Start Date End Date Cristiane Shirley MD [address] [place] [address] PCP - General Family Medicine 08/20/18 12/29/23 Garett Holt MD Internal Medicine-Gastroenterolog y 12/22/12 Ruiz Stokes MD [address] [place] [address] Internal Medicine-Cardiovascular Disease 07/25/14 Yenny Schwab MD [address]51 [facility] Building [address] [place] [id number] Internal Medicine-Rheumatology 12/11/16 Joselyn Chance, RN Subpoena Server Registered Nurse 05/05/20 03/08/21 documented as of this encounter
--- OUTSIDE RECORDS SUMMARY | 2024-07-22 16:06 | XMS_ITS | Encounter Summary ---
Author Organization [place] [address] Care Team Providers Care Lan Support Specialist Name Role Phone Garett Holt MD Unavailable [phone] Ruiz Stokes MD Unavailable [phone] Yenny Schwab MD Unavailable [phone] Cristiane Shirley MD Primary Care Provider [phone] Joselyn Chance RN Unavailable Unavail able Nuria Gonzalez BA, COS Unavailable Unavailable Reason for Visit * Reason Onset Date Comments Information Only 05/05/2020 update on patie nt Encounter Details Date Type Department Care Team (Late st Contact Info) Description 05/05/2020 Telephone SEP [employer] [address] [place] [address] Cristiane Shirley MD [address] [place] [address] Information Only (update on patient) Social History Tobacco Use Types Packs/Day Years [...] Author No 01/23/2019 9:05 AM EDT Nitin Yousif, CASSI documented in this encounter Miscellaneous Notes * Telephone Encounter - Tana Jordan - 05/05/2020 11:00 AM EDT Ilda calling and wanted Dr. Shirley to know that they are going to pt's home today at 2:30. Pt aware documented in this encounter Plan of Treatment Upcoming Encounters Date Type Department Care Team (Late st Contact Info) Description 07/29/2024 9:00 AM EST Appointment [facility] [address] [place] [id number] Jomar Kim MD [address] [place] [id number] documented as of this encounter Goals Goal Patient Goal Type Associated Problems Recent Progress Patient-Stated? Author Blood Pressure < 140/90 Blood Pressure 110/72(04/27 2:44 PM EDT) No Rachel Rogers RMA BMI (Calculated) < 30 General 50.9( 2:44 PM EDT) No Rachel Rogers RMA Eat better, exercise, reach an ideal body weight General No Ni Clinton, sugarcane research technician Healing General On track(2018 9:18 AM [...] weekly. ?? Refer to PCP and/or Nurse Care Manager, Vascular Specialist as indicated. ?? Monitor patient compliance with wound care, diabetes management and proper offloading. Stay Tobacco Free Lifestyle On track(2020 10:23 AM EDT) Wendy Moon LPN HEMOGLOBIN A1C < 7.0 Result Component 5.6(11/09/19 3:04 PM EST) Rachel Regan, RMA documented as of this encounter Visit Diagnoses Not on filedocumented in this encounter Additional Health Concerns Infection Onset Date Last Indicated Resolved Time R/O COVID-19 05/18/2020 05/18/2020 05/18/2020 3:46 PM EDT documented as of this encounter Care Teams Lan Support Specialist Relationship Specialty Start Date End Date Cristiane Shirley MD [address] [place] [address] PCP - General Family Medicine 08/20/18 12/29/23 Garett Holt MD Internal Medicine-Gastroentero logy 12/22/12 Ruiz Stokes MD [address] [place] [address] Internal Medicine-Cardiovascul ar Disease 07/25/14 Yenny Schwab MD [address] [id number] Internal Medicine-Rheumatology 12/11/16 Joselyn Chance, RN Panel Saw Operator Registered Nurse 05/05/20 03/08/21 Nuria Gonzalez BA, COS Case Cattle Care Worker 06/15/20 06/15/20 documented as of this encounter
--- OUTSIDE RECORDS SUMMARY | 2024-07-22 16:06 | XMS_ITS | Encounter Summary ---
Author Organization [place] [address] Care Team Providers Care Cash Control Specialist Name Role Phone Garett Holt MD Unavailable [phone] Ruiz Stoeks MD Unavailable [phone] Yenny Schwab MD Unavailable [phone] Cristiane Shirley MD Primary Care Provider [phone] Reason for Referral * Home Health Care (Routine) - Closed Specialty Diagnoses / Procedures Referred By Contac t Referred To Contact Home Health Diagnoses Type 2 diabetes mellitus without complication, without long-term current use of insulin (HCC) History of hernia repair Lower extremity edema Debility Cristiane Shirley MD Phone: tel: fax: Referral ID Status Reason Start Date Expiration Date V isits Requested Visits Authorized [id number] Closed Continuity of Care 05/03/2020 05/03/2021 1 1 Comments [facility] Physician Certificate of Medical Necessity for Home Care Services Face to Face Encounter Home Health: Need for Home Health Services I certify that based on my findings: Home health services are medically necessary for this patient. This patient is homebound based on the following information:decreased strength, decreased endurance, requires frequent rest periods and unsteady gait. My clinical findings support the need for the above services because:strength and endurance training. Recommended Nursing Services: Skilled Assessment Therapies to Evaluate and Treat: Physical Therapy and Occupational Therapy Agency Choice/Phone Number: Height: 5' 4 (162.6 cm) (05/03/20 3982) Weight: 243 lb (110.2 kg) (05/03/20 1059) Encounter Date and Reason for Encounter I certify that I, or a qualified hospitalist practitioner working with me, had a face to face encounter with this patient on the date indicated below due to the medical condition also listed below, which related to the primary reason the patient requires home health services. Encounter Date: 05/03/2020 Need for Home Health Services I certify [...] PMR (polymyalgia rheumatica) (HCC) Incisional hernia, incarcerated I certify that this patient is under my care, or has been referred to another physician having professional knowledge of the patient's condition. Services ordered above are needed to treat condition for which patient was hospitalized and/or seen in the office. The composed above information is based on my clinical judgment relating to this patient's medical condition. 05/03/2020 The information requested on this form is [...] after discharge. Reason for Visit * Reason Comments Hospital Follow Up Hernia ventral Encounter Details Date Type Department Care Team (Late st Contact Info) Description 05/03/2020 10:45 AM EDT Office Visit [facility] [address] [place] [address] Cristiane Shirley MD [address] [place] [address] Hospital discharge follow-up (Primary Dx); Essential hypertension; Type 2 diabetes mellitus without complication, without long-term current use of insulin (HCC); History of hernia repair; Lower extremity edema; Debility Social History Tobacco Use Types Packs/Day Years [...] Sign Reading Time Taken Comments Blood Pressure 130/78 05/03/2020 10:57 AM EDT Pulse - - Temperature 36.3 ??C (97.3 ??F) 05/03/2020 10:57 AM E DT Respiratory Rate - - Oxygen Saturation - - Inhaled Oxygen Concentration - - Weight 110.2 kg (243 lb) 05/03/2020 10:57 AM EDT Height 162.6 cm (5' 4 ) 05/03/2020 10:57 AM EDT Body Mass Index 41.71 05/03/2020 10:57 AM EDT documented in this encounter Functional [...] Refills Last Filled Start Date End Date nystatin (MYCOSTATIN) 100,000 unit/mL Oral Suspension Take 5 mL by mouth 4 times daily for 14 days. 280 mL 05/03/2020 0 fUROsemide (LASIX) 40 mg Oral TabletIndications: Lower extremity edema Take 1 Tab by mouth daily as needed. 30 Tab 6 05/03/2020 1 lubiprostone (AMITIZA) 24 mcg Oral Capsule TAKE ONE CAPSULE BY MOUTH TWICE A DAY. THIS REPLACES LINZESS. 126 Cap 2 05/03/2020 2 documented in this encounter Progress Notes * Cristiane Shirley MD - 05/03/2020 10:45 AM EDT Vitals: 05/03/20 1057 BP: 130/78 Temp: 97.3 ??F (36.3 ??C) TempSrc: Tympanic Weight: 243 lb (110.2 kg) Height: 5' 4 (1.626 m) SUBJECTIVE: Chief Complaint Patient presents with ??? Hospital Follow Up ??? Hernia ventral HPI: Hospital Follow-Up: Hospital/ER Follow-Up: Ms. Jamil is a 65 y.o. female here for hospital follow up. She was admitted 04/16 and discharged 04/29 with a diagnosis of vetral hernia. She is compliant with discharge medications / [...] 30 days. Code Complexity Face to face 77502 High complexity within 7 days 76362 High complexity 8-14 days 86221 Medium complexity Within 14 days Diabetes: Home reporting of sugars was reviewed [...] to med list. Review of Systems Constitutional: Negative for fatigue and fever. HENT: Negative. Respiratory: Negative for cough and wheezing. Cardiovascular: Negative. Gastrointestinal: Negative for abdominal pain, diarrhea and nausea. Wounds healing well. Genitourinary: Negative. Musculoskeletal: Positive for gait problem. Skin: Negative for rash. Neurological: Positive for weakness. Hematological: Negative. Psychiatric/Behavioral: Negative. OBJECTIVE: Physical Exam Vitals signs and nursing note reviewed. HENT: Head: Normocephalic. Cardiovascular: Rate and Rhythm: Normal rate. Heart sounds: No murmur. Pulmonary: Effort: Pulmonary effort is normal. Breath sounds: No wheezing. Abdominal: Palpations: Abdomen is soft. Tenderness: There is abdominal tenderness. Musculoskeletal: Comments: Using walker Skin: General: Skin is warm. Neurological: General: No focal deficit present. Mental Status: She is alert. Psychiatric: Mood and Affect: Mood normal. Assessment Alyssa was seen today for hospital follow up and hernia. Diagnoses and all orders for this visit: Hospital discharge follow-up Essential hypertension Type 2 diabetes mellitus without complication, without long-term current use of insulin (HCC) - AMB REFERRAL TO HOME HEALTH History of hernia repair - AMB REFERRAL TO HOME HEALTH Lower extremity edema - fUROsemide (LASIX) 40 mg Oral Tablet; Take 1 Tab by mouth daily as needed. - AMB REFERRAL TO HOME HEALTH Debility - AMB REFERRAL TO HOME HEALTH Other orders - lubiprostone (AMITIZA) 24 mcg Oral Capsule; TAKE ONE CAPSULE BY MOUTH TWICE A DAY. THIS REPLACES LINZESS. - nystatin (MYCOSTATIN) 100,000 unit/mL Oral Suspension; Take 5 mL by mouth 4 times daily for 14 days. Above problems were discussed with patient and [...] 9:00 AM EST Appointment [facility] [address] [place] [address] Jomar Kim MD [address] [place] [address] Scheduled Referrals Name Type Priority Associated Diagnoses Orde r Schedule AMB REFERRAL TO HOME HEALTH Outpatient Referral Routine Type 2 diabetes mellitus without complication, without long-term current use of insulin (HCC) History of hernia repair Lower extremity edema Debility Ordered: 05/03/2020 documented as of this encounter Goals Goal Patient Goal Type Associated Problems Recent Progress Patient-Stated? Author Blood Pressure < 140/90 Blood Pressure 110/72(04/27 2:44 PM EDT) Rachel Regan, MULU BMI (Calculated) < 30 General 50.9( 024 2:44 PM EDT) No Rachel Rogers RMA Eat better, exercise, reach an ideal body weight General No Ni Clinton, antique clock repairer Healing General On track(2018 9:18 AM EDT) No Bessie Mores RN Note: Wound volume reduction goals ?? [...] neuropathy weekly. ?? Refer to PCP and/or Patented Hogshead Assembler, Vascular Specialist as indicated. ?? Monitor patient compliance with wound care, diabetes management and proper offloading. Stay Tobacco Free Lifestyle On track(2020 10:23 AM EDT) No Wendy Espinoza LPN HEMOGLOBIN A1C < 7.0 Result Component 5.6(11/09/19 24 3:04 PM EST) No Rachel Rogers RMA documented as of this encounter Visit Diagnoses Diagnosis Hospital discharge follow-up- Primary Other follow-up examination Essential hypertension Unspecified essential hypertension Type 2 diabetes mellitus without complication, without long-term current use of insulin (HCC) History of hernia repair Other postprocedural status Lower extremity edema Edema Debility Debility, unspecified documented in this encounter Discontinued Medications Medication Sig Discontinue Reason Start Date End Da te linaCLOtide (LINZESS) 145 mcg Oral CapsuleIndications:Chron ic idiopathic constipation Take 1 Cap by mouth before breakfast. Cancelled by 09/14/2019 05/03/2020 AMITIZA 24 mcg Oral Capsule TAKE ONE CAPSULE BY MOUTH TWICE A DAY. THIS REPLACES LINZESS. Reorder 12/14/2019 05/03/2020 fUROsemide (LASIX) 40 mg Oral TabletIndications:Lower extremity edema Take 1 Tab by mouth daily as needed. Reorder 09/14/2019 05/03/2020 documented as of this encounter Care Teams Cash Control Specialist Relationship Specialty Start Date End Date Cristiane Shirley MD [address] [place], [place] [id number] PCP - General Family Medicine 08/20/18 12/29/23 Garett Holt MD Internal Medicine-Gastroenterology 12/22/12 Ruiz Stokes MD [address] [place] [address] Internal Medicine-Cardiovascular Disease 07/25/14 Yenny Schwab MD [address] [facility] Building [address] [place] [address] Internal Medicine-Rheumatology 12/11/16 documented as of this encounter
--- OUTSIDE RECORDS SUMMARY | 2024-07-22 16:06 | XMS_ITS | Encounter Summary ---
Author Organization [facility] [address] Care Team Providers Care Lithographic Camera Operator Name Role Phone Garett Holt MD Unavailable [phone] Ruiz Stokes MD Unavailable [phone] Yenny Schwab MD Unavailable [phone] Cristiane Shirley MD Primary Care Provider [phone] Joselyn Chance RN Unavailable Unavail able Encounter Details Date Type Department Care Team (Latest Contact Info) Description 05/11/2020 Travel Social History Tobacco Use Types Packs/Day [...] 9:00 AM EST Appointment [facility] [address] [place] [address] Jomar Kim MD [address] [place] [address] documented as of this encounter Goals Goal Patient Goal Type Associated Problems Recent Progress Patient-Stated? Author Blood Pressure < 140/90 Blood Pressure 110/72(04/27 2:44 PM EDT) No Rachel Rogers RMA BMI (Calculated) < 30 General 50.9( 2:44 PM EDT) Rachel Regan RMA Eat better, exercise, reach an ideal body weight General No Ni Clinton, director script Healing General On track(2018 9:18 AM EDT) [...] weekly. ?? Refer to PCP and/or Bilingual Legal Assistant, Vascular Specialist as indicated. ?? Monitor patient compliance with wound care, diabetes management and proper offloading. Stay Tobacco Free Lifestyle On track(2020 10:23 AM EDT) Wendy Moon LPN HEMOGLOBIN A1C < 7.0 Result Component 5.6(11/09/19 24 3:04 PM EST) No Rachel Rogers RMA documented as of this encounter Visit Diagnoses Not on filedocumented in this encounter Care Teams Lithographic Camera Operator Relationship Specialty Start Date End Date Cristiane Shirley MD [address] [place] [address] PCP - General Family Medicine 08/20/18 12/29/23 Garett Holt MD Internal Medicine-Gastroenterolog y 12/22/12 Ruiz Stokes MD [address] [place] [id number] Internal Medicine-Cardiovascular Disease 07/25/14 Yenny Schwab MD 651 [facility] [address] [place] [id number] Internal Medicine-Rheumatology 12/11/16 Joselyn Chance, RN Traffic Technician Registered Nurse 05/05/20 03/08/21 documented as of this encounter
--- OUTSIDE RECORDS SUMMARY | 2024-07-22 16:06 | XMS_ITS | Encounter Summary ---
Author Organization [place] [address] Care Team Providers Care Equal Opportunity Counselor Name Role Phone Garett Holt MD Unavailable Ruiz Stokes MD Unavailable [phone] Yenny Schwab MD Unavailable [phone] Cristiane Shirley MD Primary Care Provider [phone] Joselyn Chance RN Unavailable Unavail able Reason for Visit * Reason Comments Dehydration Nausea Abdominal Pain Annual Exam Hypertension Hyperlipidemia Diabetes Encounter Details Date Type Department Care Team (Late st Contact Info) Description 05/25/2020 10:00 AM EDT Office Visit [facility] [address] [place] [id number] Cristiane Shirley MD [address] [place] [address] Annual physical exam (Primary Dx); Essential hypertension; History of hernia repair; Lower extremity edema; Type 2 diabetes mellitus without complication, without long-term current use of insulin (HCC); Dysuria Social History Tobacco Use Types Packs/Day Years [...] Sign Reading Time Taken Comments Blood Pressure 124/82 05/25/2020 10:12 AM EDT Pulse - - Temperature 36.2 ??C (97.1 ??F) 05/25/2020 10:12 AM E DT Respiratory Rate - - Oxygen Saturation - - Inhaled Oxygen Concentration - - Weight 110.2 kg (243 lb) 05/25/2020 10:12 AM EDT Height 162.6 cm (5' 4 ) 05/25/2020 10:12 AM EDT Body Mass Index 41.71 05/25/2020 10:12 AM EDT documented in this encounter Functional [...] Author No 09/14/2019 10:05 AM Brynn Ross MULU Mckinney documented as of this encounter Mental Status * Because of a physical, mental or emotional condition, does this person have serious difficulty concentrating, remembering or making decisions? Answer Entry Date Author No 01/23/2019 9:05 AM EDT Nitin Yuosif CMA documented in this encounter Ordered Prescriptions Prescription Sig Dispense Quantity Refills Last Filled Start Date End Date cephALEXin (KEFLEX) 500 mg Oral CapsuleIndications: Dysuria Take 1 Cap by mouth every 8 hours for 10 days. 30 Cap 05/25/2020 06/04/2020 documented in this encounter Progress Notes * Cristiane Shirley MD - 05/25/2020 10:00 AM EDT Vitals: 05/25/20 1012 BP: 124/82 Temp: 97.1 ??F (36.2 ??C) TempSrc: Tympanic Weight: 243 lb (110.2 kg) Height: 5' 4 (1.626 m) SUBJECTIVE: Chief Complaint Patient presents with ??? Dehydration ??? Nausea ??? Abdominal Pain ??? Annual Exam ??? Hypertension ??? Hyperlipidemia ??? Diabetes HPI: Medicare Wellness Assessment Old Note version: Ms. Jamil is a 65 y.o. female here for an Subsequent Annual Medicare Wellness Assessment. Below are the results from wellness category assessments administered throughout the year compiled for review as part of today's assessment. Activities of Daily Living: Functional Level: Self-care ADL Limitations: none Functional Ability / Safety Screen: 1. Timed Up & Go is unsteady or takes longer than 30 secs: no 2. Needs help with phone, transportation, shopping, preparing meals, housework, laundry, medications or managing money: no 3. a. Does home have rugs in the hallway: no b. Has grab bars in the bathroom: yes c. Has handrails on stairs: yes Depression Screening: (PHQ2) Little interest or pleasure in doing things? not at all Feeling down depressed or hopeless? not at all Fall Risk Screening: Have you had 2 or more falls in the past year or any fall with injuries within the past year? no Osteoporosis Assessment: Has the patient had DEXA scan in the past 2 years? not indicated Pain Assessment: Aside from what you would consider normal aches and pains for your age, do you have any new or significant pains? no Advanced directive: No. Information and counseling given Cognitive Screening: Based on history, self reported concerns, ROS and clinician and/or informant observation no structure assessment is required. No exam data present Results for orders placed or performed in visit on 05/25/20 POCT GLYCATED HEMOGLOBIN, TOTAL Result Value Ref Range Hemoglobin A1C 5.6 4 - 6 % Lot Number Expiration Date SeriAl # SEP URINALYSIS POC Result Value Ref Range UA Color POC Yellow UA Appear POC Clear Clear UA Gluc POC Negative Negative mg/dL UA Bili POC Negative Negative UA Ketones POC Negative Negative mg/dL UA SG POC 1.025 1.001 - 1.035 UA Blood POC Trace-Intact (A) Negative UA pH POC 6.0 5.0 - 8.0 UA Protein POC Negative Negative mg/dL UA Urobilinogen POC 1.0 0.2, 1.0 UA Nitrite POC Negative Negative UA Leuk Est POC Negative Negative POCT URINE MICROALBUMIN TELCOR Result Value Ref Range Microalb, Ur 10 mg/L Creatinine Urine 200 mg/dL Microalb/Weight Checker. Ratio <30 <30 mg/g Patient Active Problem [...] (polymyalgia rheumatica) (HCC) ??? Incisional hernia, incarcerated Past Medical History: Diagnosis Date ??? Anemia [...] BIOPSY ; Surgeon: Christa Chavez MD; Location: [facility] OR; Service: General ??? CARDIAC CATHETERIZATION [...] MESH ; Surgeon: Regan Butts MD; Location: [facility]; Service: General Allergies Allergen Reactions ??? [...] ??? fluticasone propionate (FLONASE) 50 mcg/actuation Nasl Bulan, Suspension Use 1 spray(s) in eachnostril once [...] DAILY (WITH BREAKFAST). 90 Tab 0 ??? omeprazole (PRILOSEC) 20 mg Oral Capsule, Delayed Release(E.C.) TAKE 1 CAP BY MOUTH DAILY. 30 Cap 0 ??? ondansetron (ZOFRAN-ODT) 4 mg Oral [...] every 4 hours as needed for pain No current facility-administered medications on file prior to visit. Social History Socioeconomic History ??? Marital status: Spouse name: None ??? Number of children: 2 ??? Years of education: None ??? Highest education level: None Occupational History ??? Occupation: disabled Tobacco Use ??? Smoking status: Former Smoker Packs/day: 1.50 Years: 12.00 Pack years: 18.00 Types: Cigarettes Start date: 01/24/1972 Quit date: 01/24/1984 Years since quittin.3 ??? Smokeless tobacco: Never Used Substance and [...] Influenza Virus Vaccine Quadrivalant, Flublok 06/10/2019 ??? Pneumococcal Polysaccharide 23 Valent 11/15/2015 ??? Tdap 01/06/2013 Health Maintenance Topic Date Due ??? Influenza Vaccine (1) 05/25/2021 (Originally 05/09/2020) ??? Zoster (1 of 2) 05/25/2021 (Originally 2006) ??? Breast Cancer Screening 05/25/2021 (Originally 11/14/2017) ??? Cervical Cancer Screening 05/25/2021 (Originally 03/27/2018) ??? Hepatitis B Vaccine (1 of 3 - Risk 3-dose series) 05/25/2021 (Originally 1975) ??? Lipids 11/08/2020 ??? Hemoglobin A1c 11/22/2020 ??? Diabetic Eye Exam 02/11/2021 ??? Microalbuminuria 05/25/2021 ??? Wellness Exam Medicare 05/25/2021 ??? Colon Cancer Screening: Colonoscopy 02/17/2023 ??? Hepatitis C Screening Completed ??? Pneumococcal Vaccine 0-64 Completed There are no preventive care reminders to display for this patient. Patient Care Team: Cristiane Shirley MD as PCP - General (Family Medicine) Garett Holt MD (Internal Medicine-Gastroenterology) Ruiz Stokes MD (Internal Medicine-Cardiovascular Disease) Yenny Scwhab MD (Internal Medicine-Rheumatology) Joselyn Chance RN as Top Hat Body Maker (Registered Nurse) === Other chronic disease management or a new acute condition was addressed today as a separate identifiable service today and the HPI of those conditions may be noted in the body of this note just below this statement with associated pertinent ROS/EXAM/A&P incorporated into the documentation within the appropriate sections of the note. Separate service billing not applicable if the patient is in for Initial Medicare wellness Assessment or as a new patient to the practice. === Additional issues addressed today: Diabetes: Home reporting of sugars was reviewed [...] and if taking, added to med list. Hypertension: Home reporting of hypertension was reviewed [...] medications/treatments. Diet has been reviewed with patient. Dehydration This is a new problem. The current episode started in the past 7 days. The problem occurs constantly. The problem has been unchanged. Associated symptoms include nausea. Pertinent negatives include no coughing, fatigue, fever or rash. Nausea This is a new problem. The current episode started in the past 7 days. The onset quality is gradual. The problem occurs constantly. Associated symptoms include nausea. Pertinent negatives include no fever. Pt is here today for an ED follow up for dehydration and nausea that has been present since her hernia surgery Hypertension: Home reporting of hypertension was reviewed at time of visit. Alyssa denies any episodes of dizziness, lightheadedness, presyncope, syncope, headache, or chest pain. Alyssa does not report any new symptoms of possible hypertension sequelae. The patient reports that she is not having significant issues or side effects of current medications/treatments. Review of Systems Constitutional: Negative for fatigue and fever. HENT: Negative. Respiratory: Negative for cough and wheezing. Cardiovascular: Negative. Gastrointestinal: Positive for nausea. Genitourinary: Positive for flank pain. Skin: Negative for rash. Neurological: Negative. Hematological: Negative. Psychiatric/Behavioral: Negative. OBJECTIVE: Physical Exam Vitals signs and nursing note reviewed. HENT: Head: Normocephalic. Cardiovascular: Rate and Rhythm: Normal rate. Heart sounds: No murmur. Pulmonary: Effort: Pulmonary effort is normal. Breath sounds: No wheezing or rales. Abdominal: Palpations: Abdomen is soft. Tenderness: There is no abdominal tenderness. Skin: General: Skin is warm. Neurological: General: No focal deficit present. Mental Status: She is alert. Psychiatric: Mood and Affect: Mood normal. Assessment Alyssa was seen today for dehydration, nausea, abdominal pain, annual exam, hypertension, hyperlipidemia and diabetes. Diagnoses and all orders for this visit: Annual physical exam Essential hypertension History of hernia repair Lower extremity edema Type 2 diabetes mellitus without complication, without long-term current use of insulin (HCC) - POCT MICROALBUMIN - POCT GLYCATED HEMOGLOBIN, TOTAL - SEP URINALYSIS POC - POCT URINE MICROALBUMIN TELCOR Dysuria - PERFORM DIPSTICK URINALYSIS - SEP URINALYSIS POC - cephALEXin (KEFLEX) 500 mg Oral Capsule; Take 1 Cap by mouth every 8 hours for 10 days. I have recommended that this patient have a mammogram, pap smear, flu shot and immunization for hepb and zoster but she declines at this time. I have discussed the risks and benefits of this examination with her. The patient verbalizes understanding. Above problems were discussed with patient and [...] EST Appointment [facility] [address] [place] [address] Jomar Kim MD [address] [place] [address] documented as of this encounter Goals Goal Patient Goal Type Associated Problems Recent Progress Patient-Stated? Author Blood Pressure < 140/90 Blood Pressure 110/72(04/27 2:44 PM EDT) No Rachel Rogers RMA BMI (Calculated) < 30 General 50.9( 2:44 PM EDT) No Rachel Rogers RMA Eat better, exercise, reach an ideal body weight General No Ni Clinton, cte teacher Healing General On track(2018 9:18 AM EDT) [...] neuropathy weekly. ?? Refer to PCP and/or Hole Digger, Vascular Specialist as indicated. ?? Monitor patient compliance with wound care, diabetes management and proper offloading. Stay Tobacco Free Lifestyle On track(2020 10:23 AM EDT) No Wendy Espinoza LPN HEMOGLOBIN A1C < 7.0 Result Component 5.6(11/09/19 3:04 PM EST) No Rachel Rogers RMA documented as of this encounter Procedures Procedure Name Priority Date/Time Associated Diagnosis Comments POCT URINE MICROALBUMIN Routine 05/25/2020 10:49 AM EDT Type 2 diabetes mellitus without complication, without long-term current use of insulin (HCC) SEP URINALYSIS POC Routine 05/25/2020 10 :47 AM EDT Type 2 diabetes mellitus without complication, without long-term current use of insulin ([facility]) Dysuria POCT GLYCATED HEMOGLOBIN, TOTAL Routine 05/25/2020 10:39 AM EDT Type 2 diabetes mellitus without complication, without long-term current use of insulin ([facility]) documented in this encounter Results * POCT URINE MICROALBUMIN TELCOR (05/25/2020 10:49 AM EDT) Microalb, Ur 10 mg/L 05/25/2020 10:50 AM EDT [facility] Creatinine Urine 200 mg/dL 05/25/2020 10:50 AM EDT [facility] Microalb/Weight Checker. Ratio <30 <30 mg/g 05/25/2020 10:50 AM EDT [facility] Urine URINE SPECIMEN COLLECTION / Unknown 05/25/2020 10:49 AM EDT 05/25/2020 10:50 AM EDT Cristiane Shirley MD POINT OF CARE TEST ORDERABLES Final Result Performing Organization Address City/State/[facility] Co de Phone Number [address] [address] * (ABNORMAL) SEP URINALYSIS POC (05/25/2020 10:47 AM EDT) UA Color POC Yellow 05/25/2020 10:49 AM EDT [facility] UA Appear POC Clear Clear 05/25/2020 10:49 AM EDT [facility] UA Gluc POC Negative Negative mg/dL 05/25/2020 10:49 AM EDT [facility] UA Bili POC Negative Negative 05/25/2020 10:49 AM EDT [facility] UA Ketones POC Negative Negative mg/dL 05/25/2020 10:49 AM EDT [facility] UA SG POC 1.025 1.001 - 1.035 05/25/2020 10:49 AM EDT [facility] UA Blood POC Trace-Intact (A) Negative 05/25/2020 10:49 AM EDT [facility] UA pH POC 6.0 5.0 - 8.0 05/25/2020 10:49 AM EDT [facility] UA Protein POC Negative Negative mg/dL 05/25/2020 10:49 AM EDT [facility] UA Urobilinogen POC 1.0 0.2, 1.0 05/25/2020 10:49 AM EDT [facility] UA Nitrite POC Negative Negative 05/25/2020 10:49 AM EDT [facility] UA Leuk Est POC Negative Negative 0 10:49 AM EDT [facility] Urine URINE SPECIMEN COLLECTION / Unknown 05/25/2020 10:47 AM EDT 05/25/2020 10:49 AM EDT us Cristiane Shirley MD POINT OF CARE TEST ORDERABLES Final Result Performing Organization Address [facility] de Phone Number [address] [address] * POCT GLYCATED HEMOGLOBIN, TOTAL (05/25/2020 10:39 AM EDT) Hemoglobin A1C 5.6 4 - 6 % SEP OFFICE Lot Number SEP OFFICE Expiration Date SEP OFFICE SeriAl # SEP OFFICE 05/25/2020 10:3 9 AM EDT us Cristiane Shirley MD POINT OF CARE TEST ORDERABLES Final Result Performing Organization Address [facility] de Phone Number SEP OFFICE documented in this encounter Visit Diagnoses Diagnosis Annual physical exam- Primary Routine general medical examination at a health care facility Essential hypertension Unspecified essential hypertension History of hernia repair Other postprocedural status Lower extremity edema Edema Type 2 diabetes mellitus without complication, without long-term current use of insulin (HCC) Dysuria documented in this encounter Orders Nursing Count Last Ordered Date First Orde red Date PERFORM DIPSTICK URINALYSIS 1 05/25/2020 documented in this encounter Care Teams Equal Opportunity Counselor Relationship Specialty Start Date End Date Cristiane Shirley MD [address] [place] [address] PCP - General Family Medicine 08/20/18 12/29/23 Garett Holt MD Internal Medicine-Gastroenterolog y 12/22/12 Ruiz Stokes MD [address] [place] [address] Internal Medicine-Cardiovascular Disease 07/25/14 Yenny Schwab MD [address] [facility] Building [address] [place] [id number] Internal Medicine-Rheumatology 12/11/16 Joselyn Chance, RN Top Hat Body Maker Registered Nurse 05/05/20 03/08/21 documented as of this encounter
--- OUTSIDE RECORDS SUMMARY | 2024-07-22 16:07 | XMS_ITS | Encounter Summary ---
Author Organization [place] [address] Care Team Providers Care Titrator Name Role Phone Garett Holt MD Unavailable [phone] Ruiz Stokes MD Unavailable [phone] Yenny Schwab MD Unavailable [phone] Cristiane Shirley MD Primary Care Provider Reason for Visit * Reason Onset Date Comments Medication Refill 2020 Encounter Details Date Type Department Care Team (Late st Contact Info) Description 2020 Refill [facility] [address] [place] [address] Cristiane Shirley MD [address] [place] [address] Medication Refill Social History Tobacco Use Types [...] have Coronavirus / COVID-19? No / Unsure 04/16/2020 11:34 PM EDT documented as of this encounter [...] by mouth 2 times daily. 180 Tab 2020 12/15/2020 documented in this encounter Plan of Treatment Upcoming Encounters Date Type Department Care Team (Late st Contact Info) Description 07/29/2024 9:00 AM EST Appointment [facility] [address] [place] [address] Jomar Kim MD [address] [place] [address] documented as of this encounter Goals Goal Patient Goal Type Associated Problems Recent Progress Patient-Stated? Author Blood Pressure < 140/90 Blood Pressure 110/72(04/27 2:44 PM EDT) No Rachel Rogers RMA BMI (Calculated) < 30 General 50.9( 024 2:44 PM EDT) No Rachel Rogers RMA Eat better, exercise, reach an ideal body weight General No Ni Clinton, supervisor refractory products Healing General On track(2018 9:18 AM EDT) [...] weekly. ?? Refer to PCP and/or Sheet Mill Supervisor, Vascular Specialist as indicated. ?? Monitor [...] 1 tablet by mouth twice daily Reorder 01/05/2020 2020 documented as of this encounter Care Teams Titrator Relationship Specialty Start Date End Date Cristiane Shirley MD [address] [place] [address] PCP - General Family Medicine 08/20/18 12/29/23 Garett Holt MD Internal Medicine-Gastroenterology 12/22/12 Ruiz Stokes MD [address] [place] [address] Internal Medicine-Cardiovascular Disease 07/25/14 Yenny Schwab MD [address] [facility] [address] [place] [address] Internal Medicine-Rheumatology 12/11/16 documented as of this encounter
--- OUTSIDE RECORDS SUMMARY | 2024-07-22 16:07 | XMS_ITS | Encounter Summary ---
Author Organization [place] [address] Care Team Providers Care [employer] Rep Name Role Phone Garett Holt MD Unavailable [phone] Ruiz Stokes MD Unavailable [phone] Yenny Schwab MD Unavailable [phone] Cristiane Shirley MD Primary Care Provider [phone] Reason for Visit * Auth/Cert/Inpt Specialty Diagnoses / Procedures Referred By Ron bansal Referred To Contact Diagnoses Abdominal wall hernia abdominal wall hernia Referral ID Status Reason Start Date Expiration Date Visits Re quested Visits Authorized [id number] 1 1 Encounter Details Date Type Department Care Team (Late st Contact Info) Description 04/18/2020 6:10 PM EDT Anesthesia Event EDG PERIOP [facility] [place] [address] Horacio Leary MD [address] [facility] [address] [place] [address] Renetta Miles APRN [address] [place] [address] [place] [address] Anesthesia Record Procedure Summary Procedure Name Responsible Anesthesiologist Anesthesia Start Time Anesthesia Stop Time DAVINCI ROBOTIC VENTRAL/INCISIONAL HERNIA REPAIR Horacio Leary MD 04/18/20180904/18/202146 Events Date Time Event Comment 04/18/2020 1710 1807 AN Equip Check 1810 An Start 1810 An Start Data 181 Immediate Pre Anesthetic Ass es 1817 An Induction 1818 An Intubation 1835 Anesthesia Ready 1843 Time out 1845 Incision 2138 An Extubation 2139 an stop data 2146 Handoff I completed my SBAR handoff to [...] acknowledgement of understanding from the receiving PACU/ICU service team leader 2146 An Stop Meds Name Total lidocaine injection 1% 50 mg fentaNYL 50 MCG/ML INJ 200 mcg propofol (DIPRIVAN) injection 150 mg rocuronium 10 mg/mL injection 60 mg succinylcholine (ANECTINE) 20 mg/mL inje ction 160 mg ondansetron (ZOFRAN) injection 4 mg /2 m L 4 mg ceFOXItin (MEFOXIN) 2 g in dextrose 5% 5 0 mL IVPB 2 g sugammadex (BRIDION) 100 mg/mL injection 200 mg 0.9 % NaCl infusion 400 mL lactated ringers infusion 1,000 mL * Agents Name O2 Air Et Sevoflurane * Blood No blood administrations on file. Lines, Drains, and Airways Type Details Placement Removal Peripheral IV 04/17/20; 1243; 04/24/20; 22; Left; Hand; smurrayrn; 1; Vein viewer; None; 04/22/20; 2324; Non-Vesicant Infiltration 1:Edema <l inch in any direction, also may have:skin blanching, coolness to touch, pain; Catheter intact, Dressing applied 04/17/20 1243 by Tasha Higgins RN 04/22/202323 by Lisbet Burton RN Urethral Catheter (Harris) Placement Date: 04/18/20; Placement Time: 1814; Inserted By: Rob VALENZUELA; Type: Non-latex; Size: 16 fr; Balloon Size: 10 ml; Collection Container: Standard; Securement Method: Securing device (Describe); Urine Returned: Yes; Location: OR; Hand Hygiene Before Insertion: Yes; Silver-Coated Catheter In Use?: Yes; Securement Device Applied?: Yes; MICAELA Intact?: Yes; Dependant Loop Observed?: Yes; Drain Tubing and Bag Below Bladder?: Yes; Removal Date: 04/18/20; Removal Time: 211404/18/201814 by Hakeem Montes RN 04/18/202114 by Hakeem Montes RN Airway Device: ETT- Cuffed; Size: 7 mm; Placement Date: 04/18/20; Placement Time: 1818 (created via procedure documentation); Removal Date: 04/18/20; Removal Time: 213804/18/201818 by Ruiz Guzman CRNA 04/18/202138 by Jose Rojas CRNA Incision/Procedural Site 04/18/20; 1845; Abdomen (Trocar sites x4); 04/29/20; 0046 04/18/20 184 by Hakeem Montes RN 04/29/20 0046 by Discharge Provider, Automatic documented in this [...] Nitin Rider CMA documented in this encounter Procedure Notes * Horacio Leary MD - 04/18/2020 10:07 PM EDTAssociated Order(s): Peripheral Block by Anesthesia Peripheral Block by Anesthesia Procedure Date/Time: 04/18/2020 9:20 PM Patient location during procedure: OR Reason for block: at surgeon's request and post-op pain management Staff and Pre-procedure checks Anesthesiologist: Horacio Leary MD Performed: anesthesiologist Preanesthetic Checklist: Allergies confirmed, Block plan confirmed, Necessary block equipment present, Supplemental O2 applied, if needed, Anticoagulant confirmed, Block site marked, Patient identified- 2 criteria, Surgical procedure consent verified, Aseptic technique used, Drug/solution labeled, Resuscitaion equipment available, LACIE recommended monitors applied, IV access functioning and Sedation given, if needed Immediate perianesthetic assessment completed: Yes Patient position: Prep: Chloraprep Monitoring: BP, EKG and O2 Sat Peripheral Block Block type: TAP Block Laterality: Bilateral Injection technique: single-shot Pain pump: no pain pump placed Medication: 25ml, Bupivacaine 0.25% and Exparel 1.33% Needle Needle type: Stimuplex Needle gauge: 21 G Needle length: 4 in (100mm) Nerve localization: ultrasound guidance (TAP Block: External Oblique muscle, Internal Oblique muscle and Transversus Abdominis muscle are identified; the tip of the needle and the spread of the localanesthetic between Internal Oblique muscle and Transversus Abdominus muscle is visualized.) Ultrasound probe: linear Ultrasound needle approach: in-plane Assessment Block success: a full evaluation pending Events: Uneventful Heart rate change: no Blood aspirated: no Paresthesia pain: none Resistance on injection: normal Intermittent incremental injection LA at 5ml * Ruiz Guzman CRNA - 04/18/2020 6:36 PM EDTAssociated Order(s): Airway Intraop Airway Placement: Date/Time: 04/18/2020 6:19 PM Induction type: IV and Modified rapid sequence Mask size: Standard adult Pre-Oxygenation: Standard Mask ventilation: Not attempted Technique: Direct laryngoscope Laryngoscope blade: Anali Blade size: 3 Grade view: II Airway type: ETT- cuffed Airway location: Oral Device size: 7mm Secured at: 21 cm Measured from: Lips Placement verified: Auscultation, End tidal CO2 and Symmetric chest wall motion Condition: Atraumatic Insertion attempts: 1 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: 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 documented in this encounter OR Notes * Anesthesia Postprocedure Evaluation - Horacio Leary MD - 04/18/2020 11:37 PM EDT Post-Anesthesia Evaluation Note Patient Name: Alyssa Jamil Patient Date: April 18, 2020 Post-Anesthesia Evaluation Patient Location: PACU Post op vitals: stable Difficult airway: no Nausea controlled: yes Level of consciousness: awake and alert Post anesthesia pain: adequate analgesia and pain needs being addressed Long acting local anesthetic: single shot Airway patency: patent Respiratory status: spontaneous ventilation and nasal canula Cardiovascular status: stable and BP within 20% of baseline Hydration status: euvolemic Perioperative complications: NONE Vitals: 04/18/20 2330 BP: 126/62 Pulse: 80 Resp: 16 Temp: 36.8 ??C (98.3 ??F) SpO2: 97% * Anesthesia Preprocedure Evaluation - Rene Zuleta MD - 04/18/2020 7:54 AM EDT Pre-Anesthesia Evaluation Note Patient Name: Alyssa Jamil Sex: female Patient : 1955 Age: 64 y.o. Patient Date: April 18, 2020 Procedure(s): DAVINCI ROBOTIC VENTRAL HERNIA REPAIR WITH MESH POSSIBLE BOWEL RESECTION POSSIBLE OPEN Anesthesia Evaluation Previous anesthesia. No history of anesthetic complications: : unknown. Airway Mallampati: II TM distance: <3 FB Neck ROM: full Dental Comment: Multiple missing teeth; denies any loose teeth. Dental exam findings: poor Pulmonary (+) Asthma Sleep apnea History of tobacco use (18 pk yrs): former Physical exam: Comments: Clear to auscultation Cardiovascular Comments: [facility] 2015- LM: Normal LAD: Normal CX; Normal RCA: Dom PDA, normal EF 60% EDP 15 (+)Hypertension: well controlled Hyperlipidemia ECG reviewed Physical exam: Rhythm: regular Rate: normal (-) no angina, no shortness of breath Neuro/Psych (+) Fibromyalgia GI/Hepatic/Renal (+) Hiatal hernia GERD/PUD (ulcer hx): Endo/Other Comments: Temporal arteritis (+)Obese: Morbid obesity (BMI 40-49.9) Diabetes mellitus (A1c 6.3 on 11/2019): type 2 and well controlled Arthritis (PMR): Osteo 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 T&S pending. COVID negative 04/16/20. Ekg 04/18/20- SR. Echo 2018- ef 55-60%. Body mass index is 41.71 kg/m??. Anesthesia Plan ASA 3 Last solid intake: The patient has not eaten within the last 8 hours. Last clear liquid intake: The patient has not had clear liquids within the last 2 hours. Anesthesia Plan: general Induction: intravenous Monitors: STD Scopolamine PONV Risk Score: 3. Score of 3 or more is High Risk for PONV, combination antiemetic prophylaxis isindicated. Informed consent Anesthetic plan and risks discussed with: patient. Use of blood products discussed with patient whom consented to blood products. Chart Reviewed and patient examined documented in this encounter Plan of Treatment Upcoming Encounters Date Type Department Care Team (Late st Contact Info) Description 07/29/2024 9:00 AM EST Appointment [facility] [address] [place] [address] Jomar Kim MD [address] [place] [address] documented as of this encounter Goals Goal Patient Goal Type Associated Problems Recent Progress Patient-Stated? Author Blood Pressure < 140/90 Blood Pressure 110/72(04/27 2:44 PM EDT) No Rachel Rogers RMA BMI (Calculated) < 30 General 50.9( 2:44 PM EDT) No Rachel Rogers RMA Eat better, exercise, reach an ideal body weight General No Ni Clinton, scale adjuster Healing General On track(2018 9:18 AM EDT) [...] neuropathy weekly. ?? Refer to PCP and/or Lead Front End Developer, Vascular Specialist as indicated. ?? Monitor patient compliance with wound care, diabetes management and proper offloading. Stay Tobacco Free Lifestyle On track(2020 10:23 AM EDT) Wendy Moon LPN HEMOGLOBIN A1C < 7.0 Result Component 5.6(11/09/19 3:04 PM EST) No Rachel Rogers RMA documented as of this encounter Procedures Procedure Name Priority Date/Time Associated Diagnosis Comments PERIPHERAL BLOCK Routine 04/18/2020 10:0 7 PM EDT INTRAOP AIRWAY PLACEMENT Routine 04/18/2020 6:36 PM EDT documented in this encounter Results * Peripheral Block by Anesthesia (04/18/2020 10:07 PM EDT) Narrative [facility] - 04/18/2020 10:07 PM EDT Horacio Leary MD ? 04/18/2020 10:08 PM Peripheral Block by Anesthesia Procedure Date/Time: 04/18/2020 9:20 PM Patient location during procedure: OR Reason for block: at surgeon's request and post-op pain management Staff and Pre-procedure checks Anesthesiologist: Horacio Leary MD Performed: anesthesiologist Preanesthetic Checklist: Allergies confirmed, Block plan confirmed, Necessary block equipment present, Supplemental O2 applied, if needed, Anticoagulant confirmed, Block site marked, Patient identified- 2 criteria, Surgical procedure consent verified, Aseptic technique used, Drug/solution labeled, Resuscitaion equipment available, LACIE recommended monitors applied, IV access functioning and Sedation given, if needed Immediate perianesthetic assessment completed: Yes Patient position: Prep: Chloraprep Monitoring: BP, EKG and O2 Sat Peripheral Block Block type: TAP Block Laterality: Bilateral Injection technique: single-shot Pain pump: no pain pump placed Medication: 25ml, Bupivacaine 0.25% and Exparel 1.33% Needle Needle type: Stimuplex Needle gauge: 21 G Needle length: 4 in (100mm) Nerve localization: ultrasound guidance (TAP Block: External Oblique muscle, Internal Oblique muscle and Transversus Abdominis muscle are identified; the tip of the needle and the spread of the local anesthetic between Internal Oblique muscle and Transversus Abdominus muscle is visualized.) Ultrasound probe: linear Ultrasound needle approach: in-plane Assessment Block success: a full evaluation pending Events: Uneventful Heart rate change: no Blood aspirated: no Paresthesia pain: none Resistance on injection: normal Intermittent incremental injection LA at 5ml us Horacio Leary MD ANESTHESIA ORDERABLES Final R esult Performing Organization Address [facility] de Phone Number [facility] [address] [place] [address] * INTRAOP AIRWAY PLACEMENT (04/18/2020 6:36 PM EDT) Narrative [facility] - 04/18/2020 6:36 PM EDT Ruiz Guzman CRNA ? 04/18/2020 ??6:37 PM Intraop Airway Placement: Date/Time: 04/18/2020 6:19 PM ??Induction type: ??IV and Modified rapid sequence ??Mask size: ??Standard adult ??Pre-Oxygenation: ??Standard ??Mask ventilation: ??Not attempted ??Technique: ??Direct laryngoscope ??Laryngoscope blade: ??Anali ??Blade size: ??3 ??Grade view: ??II ??Airway type: ??ETT- cuffed ??Airway location: ??Oral ??Device size: ??7mm ??Secured at: 21 cm ??Measured from: ??Lips ??Placement verified: ??Auscultation, End tidal CO2 and Symmetric chest wall motion ??Condition: ??Atraumatic ??Insertion attempts: ??1 ??Title: ??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 us Horacio Leary MD [place] ANESTHESIA Final Result Performing Organization Address [facility] de Phone Number [facility] [address] [place] [address] documented in this encounter Visit Diagnoses Not on filedocumented in this encounter Administered Medications Inactive Administered Medications - up to 1 most recent administrations Medication Order MAR Action Action Date Dose Rate Site ceFOXItin (MEFOXIN) 2 g in dextrose 5% 50 mL IVPB 2 g, Intravenous, at 100 mL/hr, ONCE, 1 dose, On Fri04/18/20 at 1700, Intra-op New Bag 04/18/2020 6:31 PM EDT 2 g fentaNYL (SUBLIMAZE) injection Intravenous, PRN (Anesthesia), Starting on Fri04/18/20 at 1818, Until Fri04/18/20 at 2147, Anesthesia Intra-op Given 04/18/2020 9:34 PM EDT 50 mcg lactated ringers infusion Intravenous, at 100 mL/hr, PREPROCEDURE CONTINUOUS, Starting on Fri04/18/20 at 1054, Until Fri04/18/20 at 2336, To be given in SDS/Pre-op Holding Area, Pre-op (Holding/SDS Meds) New Bag 04/18/2020 7:51 PM EDT lidocaine 1% 10 mg/mL (1 %) injection Intravenous, PRN (Anesthesia), Starting on Fri04/18/20 at 1818, Until Fri04/18/20 at 2146, Anesthesia Intra-op Given 04/18/2020 6:18 PM EDT 50 mg ondansetron (ZOFRAN) injection PRN (Anesthesia), Starting on Fri04/18/20 at 1949, Until Fri04/18/20 at 214, Anesthesia Intra-op Given 04/18/2020 7:49 PM EDT 4 mg propofoL (DIPRIVAN) injection Intravenous, PRN (Anesthesia), Starting on Fri04/18/20 at 1818, Until Fri04/18/20 at 214, Anesthesia Intra-op Given 04/18/2020 6:18 PM EDT 150 mg rocuronium injection Intravenous, PRN (Anesthesia), Starting on Fri04/18/20 at 1818, Until Fri04/18/20 at 214, Anesthesia Intra-op Given 04/18/2020 7:29 PM EDT 10 mg succinylcholine (ANECTINE) injection Intravenous, PRN (Anesthesia), Starting on Fri04/18/20 at 1818, Until Fri04/18/20 at 214, Anesthesia Intra-op Given 04/18/2020 6:18 PM EDT 160 mg sugammadex (BRIDION) injection PRN (Anesthesia), Starting on Fri04/18/20 at 2120, Until Fri04/18/20 at 2147, Anesthesia Intra-op Given 04/18/2020 9:20 PM EDT 200 mg documented in this encounter Care Teams [employer] Rep Relationship Specialty Start Date End Date Cristiane Shirley MD [address] [place] [address] PCP - General Family Medicine 08/20/18 12/29/23 Garett Holt MD Internal Medicine-Gastroenterology 12/22/12 Ruiz Stokes MD [address] [place] [address] Internal Medicine-Cardiovascular Disease 07/25/14 Yenny Schwab MD [address] [address] Internal Medicine-Rheumatology 12/11/16 documented as of this encounter
--- OUTSIDE RECORDS SUMMARY | 2024-07-22 16:07 | XMS_ITS | Encounter Summary ---
Author Organization [place] [address] Care Team Providers Care Sanitary Inspector Name Role Phone Garett Holt MD Unavailable [phone] Ruiz Stokes MD Unavailable [phone] Yenny Schwab MD Unavailable [phone] Cristiane Pop MD Primary Care Provider [phone] Reason for Visit * Auth/Cert/Inpt Specialty Diagnoses / Procedures Referred By Contac t Referred To Contact Diagnoses Abdominal wall hernia abdominal wall hernia Referral ID Status Reason Start Date Expiration Date Visits Re quested Visits Authorized [id number] 1 1 Encounter Details Date Type Department Care Team (Latest Contact Info) Description 04/16/2020 11:20 PM EDT - 04/28/2020 8:46 PM EDT Hospital Encounter EDG [facility] [place] [address] Heriberto Shirley, DO [address] [place] [address] [place] [address] Preop testing (Primary Dx); Essential hypertension; Ventral hernia without obstruction or gangrene Discharge Disposition: Home or Self Care Social [...] Sign Reading Time Taken Comments Blood Pressure 115/72 04/28/2020 9:11 AM EDT Pulse 77 04/28/2020 9:00 AM EDT Temperature 36.7 ??C (98 ??F) 04/28/2020 9:00 AM EDT Respiratory Rate 16 04/28/2020 9:00 AM EDT Oxygen Saturation 97% 04/28/2020 9:00 AM EDT Inhaled Oxygen Concentration - - Weight 110.2 kg (243 lb) 04/16/2020 11:31 PM EDT Height 162.6 cm (5' 4 ) 04/16/2020 11:31 PM EDT Body Mass Index 41.71 04/16/2020 11:31 PM EDT documented in this encounter Functional [...] Assessment Author No 09/14/2019 10:05 AM Brynn RossCAROLLeigh documented as of this encounter Mental Status * Because of a physical, mental or emotional condition, does this person have serious difficulty concentrating, remembering or making decisions? Answer Entry Date Author No 01/23/2019 9:05 AM RINAT Nitin Yousif CMA documented in this encounter Discharge Summaries * Colby Kee MD - 04/28/2020 8:46 PM EDT [facility] Discharge Summary Patient Name: Alyssa Campos : 1955 Admit Date: 04/16/2020 Discharge Date: 04/28/2020 Admitting Physician: Heriberto Shirley DO Discharging Physician: Colby Kee MD Reason for Hospitalization: Active Hospital Problems Incisional hernia, incarcerated Obesity, Class III, BMI 40-49.9 (morbid obesity) (HCC) Type 2 diabetes mellitus without complication (HCC) *Ventral hernia Brief Hospital Summary: Patient 65-year-old female underwent incisional hernia repair and improved She did well with the PT and will be discharged home Labs and imaging follow-up needed: none Consultants: Discharge Exam: Vitals: 04/28/20 0911 BP: 115/72 Pulse: Resp: Temp: SpO2: See Progress Note Correct Full Discharge Med List: Medication List START taking these medications oxyCODONE-acetaminophen 5-325 mg Tab Dose: 1-2 Tab Qty: 30 Tab Refills: 0 Commonly known as: PERCOCET 1-2 Tabs, Oral, EVERY 4 HOURS PRN CONTINUE taking these medications albuterol 2.5 mg /3 mL (0.083 %) Nebu Dose: 2.5 mg Qty: 1 box Refills: 6 Commonly known as: PROVENTIL 2.5 mg, Nebulization, EVERY 4 HOURS PRN Amitiza 24 mcg Cap Qty: 126 Cap Refills: 2 Generic drug: lubiprostone TAKE ONE CAPSULE BY MOUTH TWICE A DAY. THIS REPLACES LINZESS. amLODIPine 10 mg Tab Dose: 10 mg Qty: 63 Tab Refills: 2 Commonly known as: NORVASC 10 mg, Oral, DAILY aspirin 81 mg Tbec Dose: 81 mg Qty: 30 Tab Refills: 5 Commonly known as: Aspirin Low Dose 81 mg, Oral, DAILY atorvastatin 20 mg Tab Qty: 90 Tab Refills: 1 Comment: PATIENT IS NOW A DR. POP PATIENT Commonly known as: LIPITOR TAKE 1 TABLET BY MOUTH EVERY DAY Blood-Glucose Meter Kit Qty: 1 Kit Refills: 0 Please fill with what her ins will cover CALCIUM ORAL Dose: 1 Tab Refills: 0 celecoxib 200 mg Cap Dose: 200 mg Qty: 30 Cap Refills: 5 Commonly known as: CeleBREX 200 mg, Oral, DAILY cholecalciferol (vitamin D3) 25 mcg (1,000 unit) Tab Dose: 1 Tab Qty: 30 Tab Refills: 11 Commonly known as: Vitamin D3 1,000 Units, Oral, DAILY docusate sodium 100 mg Cap Dose: 100 mg Qty: 60 Cap Refills: 0 Commonly known as: COLACE 100 mg, Oral, 2 TIMES DAILY fluticasone propionate 50 mcg/actuation Spsn Qty: 16 g Refills: 0 Commonly known as: FLONASE Use 1 spray(s) in each nostril once daily fUROsemide 40 mg Tab Dose: 40 mg Qty: 30 Tab Refills: 6 Commonly known as: LASix 40 mg, Oral, DAILY PRN linaCLOtide 145 mcg Cap Dose: 145 mcg Qty: 30 Cap Refills: 6 Commonly known as: Linzess 145 mcg, Oral, BEFORE BREAKFAST lisinopriL 20 mg Tab tablet Dose: 20 mg Qty: 63 Tab Refills: 2 Commonly known as: PRINIVIL;ZESTril 20 mg, Oral, DAILY loratadine 10 mg Tab Dose: 10 mg Qty: 63 Tab Refills: 2 Commonly known as: CLARITIN 10 mg, Oral, DAILY metFORMIN 500 mg Tab Dose: 500 mg Qty: 63 Tab Refills: 2 Commonly known as: GLUCOPHAGE 500 mg, Oral, DAILY WITH MEAL omeprazole 20 mg Cpdr Dose: 20 mg Qty: 90 Cap Refills: 2 Commonly known as: PriLOSEC 20 mg, Oral, DAILY oxybutynin 10 mg Tr24 Dose: 10 mg Qty: 180 Tab Refills: 0 Commonly known as: DITROPAN-XL 10 mg, Oral, 2 TIMES DAILY STOP taking these medications naproxen sodium 220 mg Tab Commonly known as: ANAPROX Where to Get Your Medications These medications were sent to [facility] [address] [place] [id number] [address] - [phone] [address] [place] [address] ?? oxybutynin 10 mg Tr24 ?? oxyCODONE-acetaminophen 5-325 mg Tab Condition at Discharge: good Disposition: Home Follow-up: Regan Butts MD [address] [facility] [facility] [id number] In 2 weeks For wound re-check [facility] [address] [facility] [address] Cristiane Pop MD [address] [facility] [address] In 3 days Hospital Follow-Up Colby Kee MD 04/29/2020 documented in this encounter Discharge Instructions * Discharge Instructions* Kenyon Burkett, RYAN - 2020 9:53 AM EDT Alyssa Campos, These are your specific discharge instructions for your procedure or hospitalization. Please note that you should call our office if your have any questions or concerns as your welfare and prompt recovery is our greatest concern. Any operation can have complications. Please, call if your pain increases, or, if you have fever/chills/nausea or vomiting or if your wounds turn red and swollen. Your wounds may drain a little bit of blood or clear or reddish fluid, but never a great quantity of fluid. You may notice some bruisingnear your incisions or in the area surrounding your operative side. This is usually okay, but if the bruising becomes hard, red, or painful, please call. You should not lift, push or pull more than 20 pounds until seen by your surgeon. You may walk. Youmay climb stairs. You should not resume your exercise routines until seen in the office by the surgeon. Unless specifically directed otherwise by your surgeon, please plan to be off work at least until you are seen at your first postoperative check by the surgeon. You will be given a work excuse for the days you were off work and a work release at the time of your first postoperative check. Please bring any paperwork that your employer requires to that visit. If you or your employer have any questions regarding your return to work, please call our main office at . You may shower. You may use soap when you shower. Do not scrub at your wounds. Please do not immerse yourself in water, whether it is in the tub, hot tub, ocean, river, or silverio, until cleared by yoursurgeon to do so. You don't need to cover your wounds unless specifically directed to do so by your surgeon. Your wounds have sutures on the inside that will dissolve and are covered with skin glue on the outside. Do not drive for a week or until seen by your surgeon in the office. Please do not drive at any time if you are in pain or are taking narcotics for pain. You should take a low fat diet, unless specifically directed otherwise by your surgeon. If you havehad surgery on your gastrointestinal tract, or on your abdomen, and you start to feel nauseated, start vomiting or cannot have a bowel movement, please contact our office. Again, please call with questions or concerns. After 5 PM, or on the weekends, you may reach the on-call physician. You can leave them a message and they will return your call as soon as they are able to. If you are feeling very ill, or are worried that you are very ill, and have not received an answer from the on- call physician, please proceed to an [facility], or the closest ED. documented in this encounter Medications at Time of Discharge CALCIUM ORAL Take 1 Tab by mouth daily. cholecalciferol, vitamin D3, (VITAMIN D3) 25 mcg (1,000 unit) Oral Tablet Take 1 Tab by mouth daily. 30 Tab 11 09/14/2019 amLODIPine (NORVASC) 10 mg Oral TabletIndications: Essential hypertension Take 1 Tab by mouth daily. 63 Tab 2 12/15/2019 08/26/202 0 aspirin (ASPIRIN LOW DOSE) 81 mg Oral Tablet, Delayed Release (E.C.) Take 1 Tab by mouth daily. 30 Tab 5 09/14/2019 1 atorvastatin (LIPITOR) 20 mg Oral Tablet TAKE 1 TABLET BY MOUTH EVERY DAY 90 Tab 1 12/15/2019 0 docusate sodium (COLACE) 100 mg Oral Capsule Take 1 Cap by mouth 2 times daily. 60 Cap 09/14/2019 1 fluticasone propionate (FLONASE) 50 mcg/actuation Nasl [place], SuspensionIndicati ons:ETD (Eustachian tube dysfunction), right Use 1 spray(s) in each nostril once daily 16 g 01/05/2020 1 lisinopriL (PRINIVIL;ZESTRIL) 20 mg Oral Tablet tabletIndications: Essential hypertension Take 1 Tab by mouth daily. 63 Tab 2 12/15/2019 0 metFORMIN (GLUCOPHAGE) 500 mg Oral Tablet Take 1 Tab by mouth daily (with breakfast). 63 Tab 2 12/15/2019 0 omeprazole (PRILOSEC) 20 mg Oral Capsule, Delayed Release(E.C.) Take 1 Cap by mouth daily. 90 Cap 2 09/14/2019 0 oxyCODONE-acetamin ophen (PERCOCET) 5-325 mg Oral Tablet Take 1-2 Tabs by mouth every 4 hours as needed for Major Surgery/Traum a (G89.18) for up to 3 days. 30 Tab 2020 0 documented as of this encounter Ordered Prescriptions Prescription Sig Dispense Quantity Refills Last Filled Start Date End Date oxyCODONE-acetamin ophen (PERCOCET) 5-325 mg Oral Tablet Take 1-2 Tabs by mouth every 4 hours as needed for Major Surgery/Trau ma (G89.18) for up to 3 days. 30 Tab 2020 04/29/2020 documented in this encounter Discharge Disposition Disposition Code Departure Means Destination Home or Self Usp documented in this encounter Progress Notes * Christiana Taylor RN - 04/28/2020 3:55 PM EDT Discharge instructions reviewed with patient. Informed of prescriptions at pharmacy. Waiting for friend to arrive to transport patient home. * Adriane Webb MSW - 04/28/2020 3:10 PM EDT 04/28 TONIE Final Note: SW called and spoke to pt's . Pt's states he spoke with their daughter Clementina and family friend Anita Cristina regarding transportation. Per , Anita will be the one to transport pt at d/c as her vehicle is easier for pt to get in and out of. Per , Anita feels safe transporting pt as she is sued to transporting pt to all appointments and the store. SW met with pt at bedside and completed d/c round. Pt states she will have all the help and support needed for home. Pt states she feels safe transporting via Anitateo Cristina. Pt states understanding of all d/c medications, follow up appointments, and care needs. Pt states no other needs. TONIE notified Mckenna lopez with [facility] of d/c this date. Nurse updated. No other needs identified. * Adriane Webb MSW - 04/28/2020 2:37 PM EDT 04/28 TONIE Update: SW received call from Concha with [facility] who stated that pt's appeal wasdenied. Note pt walked 413ft with staff on 04/27/2020 and 60 (X6) ft with PT this date. SW met with pt at bedside and discussed the above. SW discussed SNF vs HH. Pt stated she wished to go home with HH but was unsure if any HH agencies would service her area and was unsure if her would be ok ay with her returning home without rehab. Pt requested SW call and speak to her . SW called and spoke to pt's and discussed the above. Pt's stated he felt pt would be safe at home with HH. SW discussed with pt. Pt states agreeable to HH at d/c and states no preference in HH agency. Referral sent to [facility]. Per Ilda with [facility], they are able to accept and their [place] office will service pt. HH orders in Epic. Pt states she feels she will be safe at home with family support and HH. SW discussed transportation with pt and . Pt and stated theythought their daughter would be able to transport at d/c. Pt and requested SW call and discuss transport with their daughter Clementina. SW called and left voicemail for pt's daughter Clementina and left return number. Awaiting call back. Nurse updated. Message sent to MD to update. SW/CC following. * Colby Kee MD - 04/28/2020 12:50 PM EDT Images from the original note were not included. PROGRESS NOTE Assessment/Plan: S/p??Ventral hernia??repair ?Ileus -??Surgery following -??DVT??ppx, GI??ppx while NPO ?Temporal arteritis (HCC) ?PMR (polymyalgia rheumatica) (HCC) -??Followed years ago by rheum -??Biopsy negative but clinically suspected by rheum -??On no treatment currently ?Type 2 diabetes mellitus without complication (HCC) - FSBS with SSI ?? Continue to hold BP meds CBC in AM Dispo: Ok to rehab VTE Prophylaxis: Anti-Embolism Intervention: Refused Qualifying Pharmacologic Prophylaxis enoxaparin (LOVENOX) injection 40 mg DAILY - LMWH/Xa Active Hospital Problems Diagnosis ??? *Ventral hernia ??? Incisional hernia, incarcerated ??? Obesity, Class III, BMI 40-49.9 (morbid obesity) (HCC) ??? Type 2 diabetes mellitus without complication (HCC) Subjective: DOING WELL WALKING IN HALLWAY HAVING BM Objective: BP 115/72 (BP Location: Right arm) Pulse 77 Temp 98 ??F (36.7 ??C) (Oral) Resp 16 Ht 5' 4 (1.626 m) Wt 243 lb (110.2 kg) SpO2 97% No BMI 41.71 kg/m?? I/O last 3 completed shifts: In: 720 [P.O.:720] Out: - Weight: 243 lb (110.2 kg) Constitutional: Alert and oriented to person, place, and time. No distress. Cardiovascular: Normal rate and regular rhythm. Exam reveals no friction rub. No murmur heard. Pulmonary/Chest: Effort normal and breath sounds normal. No respiratory distress. There are no wheezes. Abdominal: Soft. Bowel sounds are normal. No distension. There is no tenderness. There is no rebound and no guarding. Musculoskeletal: No edema. Neurological: Grossly normal. Skin: Skin is warm and dry. No erythema. Labs: Laboratory data and diagnostic testing reviewed 04/28/20. Colby Kee MD 04/28/2020 12:50 PM * Adriane Webb MSW - 04/28/2020 11:15 AM EDT 04/28 SW Update: TONIE called and spoke to Concha with [facility] and inquired about appeal process. Per Concha, appeal is still pending. Per Concha, she anticipates having an answer this date. Await insurance determination. SW/CC following. * Sarai Johns, PT - 04/28/2020 10:36 AM EDT 04/28/20 1030 PT Subjective Note Type Treatment/Progress Patient Room/Unit 2318 PT Subjective Comments #1 pt agrees Discharge Information This progress note will serve as the discharge summary if no further therapy is provided prior to the patient being discharged from the hospital. Pain Screening PT/OT Patient Currently in Pain Yes Pain Rating 8 Pain Location Abdomen;Ankle Pain Orientation Left Pain Intervention(s) Cold applied Cognition Arousal Normal Command Following Normal Precautions PT/OT Personal Protective Equipment Gloves;Surgical mask Observation Presentation Patient seated in chair Posture reclined Observation Chair alarm Bed Mobility Additional Comments NT Transfers Sit to Stand Contact guard assist;Min assist Stand to Sit Contact guard assist;Min assist Gait Gait Contact guard assist Gait Distance (Feet) 60 Feet (x6) Assistive Device 2 Wheel walker Pattern Slow grzegorz Additional Comments pt ambulated to bathroom prior to walk in luna. pt dependent for pericare, independent for hand washing. pt had a waddling gait w/ increased lateral sway. pt took several standingbreaks d/t feeling SOB. AM PAC: How much help from another person does the patient currently need... turning from your back to your side while in a flat bed without using bedrails? 3 moving from lying on your back to sitting on the side of a flat bed without using bedrails? 3 moving to and from a bed to a chair? 3 standing up from a chair using your arms (e.g. wheelchair, or bedside chair)? 3 need to walk in hospital room? 3 climbing 3-5 steps with a railing? 2 AM PAC: BASIC MOBILITY SCORING AM PAC Moblity Raw Score 17 AM PAC Mobility CMS 0-100% Functional Percentage 43.83 AM PAC Mobility CMS G Code Modifier CK Balance Sitting Balance 4/5 moves/returns trunkal midpoint 1-2 inches in multiple planes Standing Balance 2/5 indep, requires both UE support Education Education Safety with mobility;Cues for proper technique;Safe and proper technique with transfers;Safe and proper technique with gait pattern Patient Safety Patient Safety Patient left in chair with needs in reach;Chair/personal alarm activated Assessment Assessment Decreased functional mobility Prognosis Good;With continued PT s/p acute discharge Rationale for Skilled Therapy Balance Deficits;Not safe ambulating independently Goals Will Perform Supine To Sit With contact guard assistance;Not assessed Will Perform Sit to Supine With contact guard assistance;Not assessed Will Transfer Bed/Chair With stand by assist;Partly met Will Ambulate With 2 wheel walker;101-150 feet;With contact guard assistance;Partly met Plan Treatment/Interventions Continue with current plan of care PT Frequency 5-6x/week Recommendation PT Recommendation Inpatient Rehab Facility (IRF) Time In / Time Out [id number] PT Treatment Minutes 39 (39 gait) The total time spent caring for this patient included but was not limited to medical record review;hands-on treatment;communication and education with patient and/or family/caregiver;clinical judgement necessary for treatment planning for next session;assessment of the patient's progress since the last session * Kenyon Burkett APRN - 04/27/2020 2:10 PM EDT Acute Care Surgery Postoperative Note 9 Days Post-Op 04/18/2020 s/p Procedure(s): DAVINCI ROBOTIC VENTRAL HERNIA REPAIR WITH MESH PLAN: Low fiber diet Ambulate, OOB, to chair Okay for binder Having bowel function Okay for artifical tears Bowel regimen DVT/GI prophylaxis EGS will sign off at this time; please call if there are any questions or concerns Vitals: 04/26/20 0239 04/26/20 0807 04/26/20 2212 04/27/20 0907 BP: 115/52 100/64 131/50 129/66 BP Location: Right arm Right arm Right arm Right arm Patient Position: Semi Fowlers Sitting Semi Fowlers Sitting Pulse: 93 71 78 Resp: Temp: 97.7 ??F (36.5 ??C) 97.3 ??F (36.3 ??C) 98.2 ??F (36.8 ??C) TempSrc: Oral Oral Oral SpO2: 98% 97% 98% Weight: Height: Wt Readings from Last 3 Encounters: 04/16/20 243 lb (110.2 kg) 01/24/20 274 lb 12.8 oz (124.6 kg) 11/19/19 272 lb (123.4 kg) Cosigned by Dakotah Kim DO at 04/27/2020 10:44 PM EDT Associated attestation - Dakotah Kim DO - 04/27/2020 10:44 PM EDT I have not seen the patient personally but did review the case with the 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. I agree with their assessment and plan. * Colby Kee MD - 04/27/2020 1:32 PM EDT Images from the original note were not included. PROGRESS NOTE Assessment/Plan: S/p??Ventral hernia??repair ?Ileus -??Surgery following -??DVT??ppx, GI??ppx while NPO ?Temporal arteritis (HCC) ?PMR (polymyalgia rheumatica) (HCC) -??Followed years ago by rheum -??Biopsy negative but clinically suspected by rheum -??On no treatment currently ?Type 2 diabetes mellitus without complication (HCC) - FSBS with SSI ?? Continue to hold BP meds ?? Dispo: Ok to DC VTE Prophylaxis: Anti-Embolism Intervention: Refused Qualifying Pharmacologic Prophylaxis enoxaparin (LOVENOX) injection 40 mg DAILY - LMWH/Xa Active Hospital Problems Diagnosis ??? *Ventral hernia ??? Incisional hernia, incarcerated ??? Obesity, Class III, BMI 40-49.9 (morbid obesity) (HCC) ??? Type 2 diabetes mellitus without complication (HCC) Subjective: Doing well Objective: BP 129/66 (BP Location: Right arm, Patient Position: Sitting) Pulse 78 Temp 98.2 ??F (36.8 ??C)(Oral) Resp 18 Ht 5' 4 (1.626 m) Wt 243 lb (110.2 kg) SpO2 98% No BMI 41.71 kg/m?? I/O last 3 completed shifts: In: 965.6 [P.O.:720; I.V.:245.6] Out: - Weight: 243 lb (110.2 kg) Constitutional: Alert and oriented to person, place, and time. No distress. Cardiovascular: Normal rate and regular rhythm. Exam reveals no friction rub. No murmur heard. Pulmonary/Chest: Effort normal and breath sounds normal. No respiratory distress. There are no wheezes. Abdominal: Soft. Bowel sounds are normal. No distension. There is no tenderness. There is no rebound and no guarding. Musculoskeletal: No edema. Neurological: Grossly normal. Skin: Skin is warm and dry. No erythema. Labs: Laboratory data and diagnostic testing reviewed 04/27/20. Colby Kee MD 04/27/2020 1:32 PM * Sonu Rider, EHSAN,LD - 04/27/2020 10:36 AM EDT [facility] Nutrition Follow-up Evidence Supported Diagnosis: Per assessment completed by EHSAN on 04/27 Moderate protein-calorie malnutrition ?? Indicators: >5% weight loss in 1 month and < or = 50% energy intake compared to estimated energy needs for > 5 days ?? In the context of Acute illness/injury ?? Nutrition Prescription: 110.2 kg Estimated kcal needs: 1653 - 2204 kcal (15-20 kcal/kg) Estimated protein needs: 65 - 82 gm (1.2-1.5 g/kg IBW for BMI>30) ?? Plan/Interventions: Meals and Snacks: Low fiber diet Medical Food Supplements: Ensure clear TID Nutrition-Related Medication Management: Medium dose SSI Nutrition Education - Content: Low fiber diet IX completed Collaboration and Referral of Nutrition Care: RN Alyssa Campos is a 65 y.o. female patient. Admit Diagnosis: Abdominal wall hernia [K43.9] Subjective: Pt visited. Reports she is eating pretty well but gets full quickly and feels pockets of gas. Pt wondering why she is unable to get many desired items on menu, noted egg allergy in place. Discussed with RN. Completed low fiber diet IX, pt stated that makes sense and denies other questions. Height: 5' 4 (162.6 cm) Weight: 243 lb (110.2 kg) Body mass index is 41.71 kg/m??. Current Diet order: LOW FIBER DIET Supplements: Ensure clear TID PO Intakes: 50% avg Current Nutrition Support: none Skin: abd inc Erickson: 17 Objective: I/O last 3 completed shifts: In: 965.6 [P.O.:720; I.V.:245.6] Out: - Edema:Right Lower Extremity Edema: +2 Left Lower Extremity Edema: +2 Abdomen:Abdomen Inspection: Rounded Bowel Sounds (All Quadrants): Hypoactive Abdominal palpation: Tenderness, Soft Hernia: L inguinal, Abdominal Passing Flatus: Yes Nausea: No Vomiting: No When was last BM? (Date): 04/25/20 Last BM:04/25/20 Stool assessment:: Stool Occurrence: 1 (04/25/20 1715) Pertinent Labs: Recent Labs 04/21/20 0937 04/23/20 1617 NA 139 138 K 3.9 3.8 CL 96* 97* CO2 32* 27 CALCIUM 10.0 9.1 BUN 9 10 CREATININE 0.69 0.55 GLU 142* 82 Recent Labs 04/25/20 1456 04/26/20 0629 04/27/20 1012 WBC 10.7* 11.0* 11.7* Glucose Meter POC Date Value Ref Range Status 04/27/2020 123 (H) 70 - 100 mg/dL Final 2020 108 (H) 70 - 100 mg/dL Final 2020 103 (H) 70 - 100 mg/dL Final Pertinent Meds: Scheduled Meds: ??? atorvastatin 20 mg Oral Nightly ??? docusate sodium 100 mg Oral BID ??? enoxaparin 40 mg Subcutaneous Daily - LMWH/Xa ??? insulin aspart U-100 1-10 Units Subcutaneous QID WM ??? loratadine 10 mg Oral Daily ??? miconazole Topical 2 times per day ??? oxybutynin 5 mg Oral BID ??? pantoprazole 40 mg Oral Daily ??? polyethylene glycol 17 g Oral BID Continuous Infusions: PRN Meds:.acetaminophen OR acetaminophen, phenol OR benzocaine-menthoL, dextrose, glucagon (human recombinant) AND sterile water, lidocaine, miconazole, morphine OR morphine, ondansetron OR ondansetron, oxyCODONE Vitals: Temp (24hrs), Av.8 ??F (36.6 ??C), Min:97.3 ??F (36.3 ??C), Max:98.2 ??F (36.8 ??C) Patient Vitals for the past 6 hrs: BP Pulse 04/27/20 0907 129/66 78 Clinical Course: Pt s/p Stanley robot ventral hernia repair with mesh. Ileus post-op. Passed NG clamp trial and advanced to clear liquids. Now on low fiber diet. Hospitalist okayed d/c. ?? * Alvaro Fernandez INDIVIDUAL PENSION CONSULTANT - 04/27/2020 10:05 AM EDT 04/27/20 1005 PT Subjective Note Type Follow Up Treatment Attempt Patient Room/Unit 2318 Therapy delay reason Patient receiving personal care * Gabriela Carranza RN - 2020 4:10 PM EDT resting in bed at this time offers no c/o pain or discomfort afebrile eating and corey diet mod well,has ambulated in [place]una today several times with walker gait belt and assist times 1 required some short rest breaks to get back to her room * Katherine Aguilar, PT - 2020 2:38 PM EDT 04/26/20 1244 PT Subjective Note Type Treatment/Progress Patient Room/Unit 2318 PT Subjective Comments #1 reports she has accident- incontinent - pt felt very bad about it Discharge Information This progress note will serve as the discharge summary if no further therapy is provided prior to the patient being discharged from the hospital. Pain Screening Additional Comments more mid back pain since having BM yesterday Cognition Orientation Intact Precautions PT/OT Personal Protective Equipment Gloves;Surgical mask Observation Presentation Patient seated in chair Observation Chair alarm LE Assessment LLE Additional Comments self limiting ankle to ~ 20* PF, DF ~ 10* Transfers Sit to Stand Stand by assist Stand to Sit Stand by assist Additional Comments very slow to move to get to Edge of seat and then stand, reports more back paintoday Gait Gait Contact guard assist Gait Distance (Feet) 45 Feet (3 standing rest breaks) Assistive Device 2 Wheel walker Pattern Slow grzegorz Additional Comments initially to bathroom, voided continently, steady but c/o L ankle pain and significant increase in pain in back and R side and needed to sit. Pt sat in hallway in chair and pulledback to room. Pt with pale appearance - nsg notified, B/P 138/60, nsg provided pain meds AM PAC: How much help from another person does the patient currently need... turning from your back to your side while in a flat bed without using bedrails? 3 moving from lying on your back to sitting on the side of a flat bed without using bedrails? 3 moving to and from a bed to a chair? 3 standing up from a chair using your arms (e.g. wheelchair, or bedside chair)? 3 need to walk in hospital room? 3 climbing 3-5 steps with a railing? 2 AM PAC: BASIC MOBILITY SCORING AM PAC Moblity Raw Score 17 AM PAC Mobility CMS 0-100% Functional Percentage 43.83 AM PAC Mobility CMS G Code Modifier CK Education Education Patient/Family Education;To use call light to request assistance with all mobility;Role of Therapy Patient Safety Patient Safety Patient left in chair with needs in reach;Chair/personal alarm activated;Nursing notified of status Assessment Assessment Decreased functional mobility Prognosis Good Goals Will Perform Supine To Sit With contact guard assistance;Not assessed Will Perform Sit to Supine With contact guard assistance;Not assessed Will Transfer Bed/Chair With stand by assist;Partly met Will Ambulate With 2 wheel walker;101-150 feet;With contact guard assistance;Partly met Time for Goal Achievement/Duration of Treatment cont 6 days Plan Treatment/Interventions Continue with current plan of care PT Frequency 5-6x/week Recommendation PT Recommendation Inpatient Rehab Facility (IRF) Time In / Time Out 12:33-1:00 IP PT Treatment Minutes 27 * [place] - 2020 1:40 PM EDT 04/26/20 2203 Pastoral Care Encounter Visited With Patient Date of visit 04/26/20 Visit Type Follow-up Need to follow-up? Yes Pastoral Care Plan/Intervention Plan/Intervention Active Listening;Continue to Follow;Iza * Colby Kee MD - 2020 1:03 PM EDT Images from the original note were not included. PROGRESS NOTE Assessment/Plan: S/p??Ventral hernia??repair ?Ileus -??Surgery following -??DVT??ppx, GI??ppx while NPO ?Temporal arteritis (HCC) ?PMR (polymyalgia rheumatica) (HCC) -??Followed years ago by rheum -??Biopsy negative but clinically suspected by rheum -??On no treatment currently ?Type 2 diabetes mellitus without complication (HCC) - FSBS with SSI Continue to hold BP meds Dispo: Ok to DC VTE Prophylaxis: Anti-Embolism Intervention: Refused Qualifying Pharmacologic Prophylaxis enoxaparin (LOVENOX) injection 40 mg DAILY - LMWH/Xa Active Hospital Problems Diagnosis ??? *Ventral hernia ??? Incisional hernia, incarcerated ??? Obesity, Class III, BMI 40-49.9 (morbid obesity) (HCC) ??? Type 2 diabetes mellitus without complication (HCC) Subjective: Doing well Tolerating po Had BM Objective: BP 100/64 (BP Location: Right arm, Patient Position: Sitting) Pulse 93 Temp 97.7 ??F (36.5 ??C)(Oral) Resp 18 Ht 5' 4 (1.626 m) Wt 243 lb (110.2 kg) SpO2 98% No BMI 41.71 kg/m?? I/O last 3 completed shifts: In: 2223.6 [P.O.:840; I.V.:1383.6] Out: - Weight: 243 lb (110.2 kg) Constitutional: Alert and oriented to person, place, and time. No distress. Cardiovascular: Normal rate and regular rhythm. Exam reveals no friction rub. No murmur heard. Pulmonary/Chest: Effort normal and breath sounds normal. No respiratory distress. There are no wheezes. Abdominal: Soft. Bowel sounds are normal. No distension. There is no tenderness. There is no rebound and no guarding. Musculoskeletal: No edema. Neurological: Grossly normal. Skin: Surgical stigmata Labs: Laboratory data and diagnostic testing reviewed 04/26/20. Colby Kee MD 2020 1:03 PM * Adriane Webb MSW - 2020 11:23 AM EDT 04/26 SW Update: chart reviewed. Pt presented with Abdominal wall hernia. Pt with DAVINCI ROBOTIC VENTRAL HERNIA REPAIR WITH MESH on 04/18/2020. Per Surgery, Ok to d/c to [facility] when precert complete. TONIE called and spoke to [place] with [facility] who stated they received the denial this date and have initiated the appeal process. Await insurance determination. SW requested PT to work with pt again this date for updated clinicals. SW/CC following. * Kenyon Burkett APRN - 2020 9:50 AM EDT Acute Care Surgery Postoperative Note 8 Days Post-Op 04/18/2020 s/p Procedure(s): DAVINCI ROBOTIC VENTRAL HERNIA REPAIR WITH MESH PLAN: Tolerating low fiber diet D/C IVF Ambulate, OOB, to chair Having bowel function - flatus, BM Incisions clean, dry, intact Keep bowel regimen DVT/GI prophylaxis Ok to d/c to [facility] when precert complete Vitals: 04/25/20 2042 04/25/20 2044 04/26/20 0239 04/26/20 0807 BP: 102/54 115/52 100/64 BP Location: Right arm Right arm Right arm Patient Position: Semi Fowlers Semi Fowlers Sitting Pulse: 74 93 Resp: Temp: 98.5 ??F (36.9 ??C) 97.7 ??F (36.5 ??C) TempSrc: Oral Oral SpO2: 93% 93% 98% Weight: Height: Wt Readings from Last 3 Encounters: 04/16/20 243 lb (110.2 kg) 01/24/20 274 lb 12.8 oz (124.6 kg) 11/19/19 272 lb (123.4 kg) Cosigned by Jocelyn Ramirez MD at 2020 6:22 PM EDT * Clarisse Arcos RN - 04/25/2020 6:20 PM EDT Prn oxy given for pain. IV fluids infusing. Pt ambulated in hallway several times this shift. Tolerating small amount of diet. Pt reports small BM. Up with assist. Will continue to monitor. * Kenyon Burkett APRN - 04/25/2020 2:17 PM EDT Acute Care Surgery Postoperative Note 7 Days Post-Op 04/18/2020 s/p Procedure(s): STANLEY ROBOTIC VENTRAL HERNIA REPAIR WITH MESH PLAN: Advance to low fiber diet, she is tolerating Ensure Clear so will keep Keep IVF for now Ambulate, OOB, to chair Incisions clean, dry, intact Keep bowel regimen Passing flatus, await BM Recheck labs - did have slow drop in H/H and appears pale DVT/GI prophylaxis Vitals: 04/25/20 0822 04/25/20 0931 04/25/20 1216 04/25/20 1231 BP: (!) 94/39 96/45 BP Location: Left arm Left arm Patient Position: Sitting Pulse: 66 70 Resp: 16 Temp: 98 ??F (36.7 ??C) TempSrc: Oral SpO2: 97% 93% 93% 94% Weight: Height: Wt Readings from Last 3 Encounters: 04/16/20 243 lb (110.2 kg) 01/24/20 274 lb 12.8 oz (124.6 kg) 11/19/19 272 lb (123.4 kg) Cosigned by Jocelyn Ramirez MD at 05/17/2020 8:05 AM EDT Associated attestation - Jocelyn Ramirez MD - 05/17/2020 8:05 AM EDT I have seen and examined the patient and there are no changes. * Colby Kee MD - 04/25/2020 1:21 PM EDT Images from the original note were not included. PROGRESS NOTE Assessment/Plan: S/p??Ventral hernia??repair ?Ileus -??Surgery following -??DVT??ppx, GI??ppx while NPO ?Temporal arteritis (HCC) ?PMR (polymyalgia rheumatica) (HCC) -??Followed years ago by rheum -??Biopsy negative but clinically suspected by rheum -??On no treatment currently ?Type 2 diabetes mellitus without complication (HCC) - FSBS with SSI Hold all BP meds Bowel regimen Ambulate Decrease fluids Advance diet Dispo: Once ok with surgery VTE Prophylaxis: Anti-Embolism Intervention: Refused Qualifying Pharmacologic Prophylaxis enoxaparin (LOVENOX) injection 40 mg DAILY - LMWH/Xa Active Hospital Problems Diagnosis ??? *Ventral hernia ??? Incisional hernia, incarcerated ??? Obesity, Class III, BMI 40-49.9 (morbid obesity) (HCC) ??? Type 2 diabetes mellitus without complication (HCC) Subjective: Passing flatus No BM yet Objective: BP 96/45 (BP Location: Left arm) Pulse 70 Temp 98 ??F (36.7 ??C) (Oral) Resp 16 Ht 5' 4 (1.626 m) Wt 243 lb (110.2 kg) SpO2 94% No BMI 41.71 kg/m?? I/O last 3 completed shifts: In: 1921.3 [P.O.:720; I.V.:1201.3] Out: 550 [Urine:550] Weight: 243 lb (110.2 kg) Constitutional: Alert and oriented to person, place, and time. No distress. Cardiovascular: Normal rate and regular rhythm. Exam reveals no friction rub. No murmur heard. Pulmonary/Chest: Effort normal and breath sounds normal. No respiratory distress. There are no wheezes. Abdominal: Soft. Bowel sounds are normal. No distension. There is no tenderness. There is no rebound and no guarding. Musculoskeletal: mild edema Neurological: Grossly normal. Skin: Skin is warm and dry. No erythema. Labs: Laboratory data and diagnostic testing reviewed 04/25/20. Colby Kee MD 04/25/2020 1:21 PM * Clarisse Arcos RN - 04/24/2020 5:05 PM EDT VSS, afebrile. Prn oxy given for pain. Tolerating clears. Worked with PT today. Sat in chair for several hours. IV fluids infusing. Up with assist. Will continue to monitor. * Kenyon Burkett APRN - 04/24/2020 2:39 PM EDT Acute Care Surgery Postoperative Note 6 Days Post-Op 04/18/2020 s/p Procedure(s): DAVINCI ROBOTIC VENTRAL HERNIA REPAIR WITH MESH PLAN: PT recommends SNF Keep on non-carbonated clears today - does not want anything more Add Ensure Clear Add bowel regimen Ambulate, OOB, to chair Await BM, passing flatus Incisions clean, dry, intact DVT/GI prophylaxis Await diet advancement prior to d/c to SNF Vitals: 04/24/20 0932 04/24/20 0955 04/24/20 1139 04/24/20 1357 BP: BP Location: Patient Position: Pulse: Resp: Temp: TempSrc: SpO2: 90% 94% 91% 91% Weight: Height: Wt Readings from Last 3 Encounters: 04/16/20 243 lb (110.2 kg) 01/24/20 274 lb 12.8 oz (124.6 kg) 11/19/19 272 lb (123.4 kg) Cosigned by Jocelyn Ramirez MD at 05/17/2020 8:11 AM EDT Associated attestation - Jocelyn Ramirez MD - 05/17/2020 8:11 AM EDT I have seen and examined the patient and there are no changes. * Heriberto ShirleyonDO - 04/24/2020 12:20 PM EDT Images from the original note were not included. PROGRESS NOTE Assessment/Plan: ??*S/p??Ventral hernia??repair ?Ileus -??Surgery following -??DVT??ppx, GI??ppx while NPO ?Temporal arteritis (HCC) ?PMR (polymyalgia rheumatica) (HCC) -??Followed years ago by rheum -??Biopsy negative but clinically suspected by rheum -??On no treatment currently ?Type 2 diabetes mellitus without complication ([facility]) - FSBS with SSI ?? Dispo:? To snf this week VTE Prophylaxis: Anti-Embolism Intervention: Refused Qualifying Pharmacologic Prophylaxis enoxaparin (LOVENOX) injection 40 mg DAILY - LMWH/Xa Active Hospital Problems Diagnosis ??? *Ventral hernia ??? Incisional hernia, incarcerated ??? Obesity, Class III, BMI 40-49.9 (morbid obesity) (HCC) ??? Type 2 diabetes mellitus without complication ([facility]) Subjective: Eating jello Pain controlled aaox3 Objective: BP 126/66 (BP Location: Right arm, Patient Position: Sitting) Pulse 70 Temp 97.8 ??F (36.6 ??C)(Oral) Resp 18 Ht 5' 4 (1.626 m) Wt 243 lb (110.2 kg) SpO2 91% No BMI 41.71 kg/m?? I/O last 3 completed shifts: In: 2174.1 [P.O.:1140; I.V.:1004.1; NG/GT:30] Out: 1040 [Urine:900; Emesis/NG output:140] Weight: 243 lb (110.2 kg) Constitutional: Alert and oriented to person, place, and time. No distress. Cardiovascular: Normal rate and regular rhythm. Exam reveals no friction rub. No murmur heard. Pulmonary/Chest: Effort normal and breath sounds normal. No respiratory distress. There are no wheezes. Abdominal: Soft. Bowel sounds are normal. No distension. There is no tenderness. There is no rebound and no guarding. Musculoskeletal: No edema. Neurological: Grossly normal. Skin: Skin is warm and dry. No erythema. Labs: Laboratory data and diagnostic testing reviewed 04/24/20. Heriberto Shirley DO 04/24/2020 12:21 PM * Sonu Rider RD,LD - 04/24/2020 11:40 AM EDT [facility] Nutrition Assessment Evidence supported diagnosis: Moderate protein-calorie malnutrition Indicators: >5% weight loss in 1 month and < or = 50% energy intake compared to estimated energy needs for > 5 days In the context of Acute illness/injury Nutrition Prescription: 110.2 kg Estimated kcal needs: 1653 - 2204 kcal (15-20 kcal/kg) Estimated protein needs: 65 - 82 gm (1.2-1.5 g/kg IBW for BMI>30) Plan/Interventions: Meals and Snacks: Clears Parenteral Nutrition/IV Fluids: If indicated, consider Clinimix 5/15 @ 40 ml/hr with no lipids initially (682 kcal, 48 gm protein, 144 gm dextrose) with eventual goal rate of 83 ml/hr with daily lipids to provide 1920 kcal, 100 gm protein, 300 gm dextrose. Medical Food Supplements: Ensure clear TID Nutrition-Related Medication Management: Medium dose SSI Nutrition Education - Content: As needed pending diet advancement Collaboration and Referral of Nutrition Care: RN Alyssa Campos is a 64 y.o. female patient. Admit Diagnosis: Abdominal wall hernia [K43.9] Subjective: Chart reviewed for NPO/clears x 5 days. Pt feeling hungry. Will add clear liquid supplements and monitor for diet advancement and tolerance. Pt unsure of weight loss, states she hasn't eaten in days. Will monitor intakes with diet advancement. Height: 5' 4 (162.6 cm) Weight: 243 lb (110.2 kg) Body mass index is 41.71 kg/m??. IBW: 120 lb+/- 10% % IBW: 202% Weight history: ~ 3 months ago: 274 lbs 01/24/20 ~ 6 months ago: 285 lbs 10/13/19 ~ 1 year ago: 293 lbs 03/18/19 Amount of weight loss: 31 lbs in 3 month(s) % weight loss: 11.3% - severe. Nutrition Focused Physical Exam: Subcutaneous Fat Loss: Orbital: well-nourished Triceps: well-nourished Thoracic/lumbar: unable to assess Muscle Loss: Temporalis: well-nourished Clavicle- pectoralis, trapezius: well-nourished Clavicle and acromium (shoulder): well-nourished Scapula: unable to assess Interosseous: unable to assess Patellar: well-nourished Quadricep: unable to assess Gastrocnemius (calf): well-nourished Assessment of functional status: Suboptimal (some decline) Current Diet order: CLEAR LIQUID DIET Supplements: ensure clear trial PO Intakes: < OR = 50% energy intake compared to estimated energy need for > or = 5 DAYS Current Nutrition Support: none at present, recs as above Food allergies/intolerance: Eggs Chewing/swallowing difficulties: no Skin: Inc abd Erickson: 17 Objective PMH: Past Medical History: Diagnosis Date ??? Anemia [...] BIOPSY ; Surgeon: Christa Chavez MD; Location: [facility]; Service: General ??? CARDIAC [...] MESH ; Surgeon: Regan Butts MD; Location: [facility]; Service: General I/O last 3 completed shifts: In: 2174.1 [P.O.:1140; I.V.:1004.1; NG/GT:30] Out: 1040 [Urine:900; Emesis/NG output:140] Edema:Right Lower Extremity Edema: +2 Left Lower Extremity Edema: +2 Abdomen:Abdomen Inspection: Soft, Rounded, Other (Comment)(lap sites) Bowel Sounds (All Quadrants): Hypoactive Abdominal palpation: Soft, Tenderness Hernia: L inguinal, Abdominal Passing Flatus: Yes Nausea: No Vomiting: No When was last BM? (Date): 04/15/20 Last BM:04/15/20 Stool assessment: Stool Assessment When was last BM? (Date): 04/15/20 (04/24/20 0801) Vitals: Temp (24hrs), Av.9 ??F (36.6 ??C), Min:97.8 ??F (36.6 ??C), Max:98 ??F (36.7 ??C) Patient Vitals for the past 6 hrs: BP Pulse 04/24/20 0801 126/66 70 Pertinent Labs: Recent Labs 04/20/20 0657 04/21/20 0937 04/23/20 1617 NA 138 139 138 K 4.1 3.9 3.8 CL 100 96* 97* CO2 27 32* 27 CALCIUM 9.1 10.0 9.1 BUN 5* 9 10 CREATININE 0.67 0.69 0.55 GLU 139* 142* 82 Recent Labs 04/20/20 0659 04/21/20 0937 04/23/20 1617 WBC 15.4* 13.1* 10.1 Glucose Meter POC Date Value Ref Range Status 04/24/2020 94 70 - 100 mg/dL Final 04/24/2020 104 (H) 70 - 100 mg/dL Final 04/23/2020 89 70 - 100 mg/dL Final Pertinent Meds: Scheduled Meds: ??? amLODIPine 10 mg Oral Daily ??? atorvastatin 20 mg Oral Nightly ??? enoxaparin 40 mg Subcutaneous Daily - LMWH/Xa ??? insulin aspart U-100 1-10 Units Subcutaneous 4 times per day ??? lisinopriL 20 mg Oral Daily ??? loratadine 10 mg Oral Daily ??? miconazole Topical 2 times per day ??? oxybutynin 5 mg Oral BID ??? pantoprazole 40 mg Oral Daily Continuous Infusions: PRN Meds:.acetaminophen OR acetaminophen, phenol OR benzocaine-menthoL, dextrose, glucagon (human recombinant) AND sterile water, lidocaine, miconazole, morphine OR morphine, ondansetron OR ondansetron, oxyCODONE Clinical Course: Pt s/p Mohaninci robot ventral hernia repair with mesh. Passed NG clamp trial and advanced to clear liquids. * Adriane Webb MSW - 04/24/2020 10:08 AM EDT 04/24 SW Update: per Alyssa with [facility], precert initiated this date. Await insurance determination. SW/CC following. * Katherine Aguilar, PT - 04/24/2020 9:58 AM EDT 04/24/20 0920 PT Subjective Note Type Treatment/Progress Patient Room/Unit 2318 PT Subjective Comments #1 agreeable, states she knows she needs to have a BM but feels there is nothing there since I havent been eating Discharge Information This progress note will serve as the discharge summary if no further therapy is provided prior to the patient being discharged from the hospital. Pain Screening Pain Rating 9 Pain Location Abdomen Cognition Orientation Intact Observation Presentation Patient seated in chair Observation Bed alarm Transfers Sit to Stand Contact guard assist;With verbal cues Stand to Sit Contact guard assist Gait Gait Contact guard assist;Stand by assist Gait Distance (Feet) 132 Feet Assistive Device 2 Wheel walker Additional Comments slightly flexed, slow pattern and stops to rest on occasion. Cues for upright stance. Safe and steady, to bathroom, void continently, and washed hands but needed to flex over sinkdue to abd pain, back to chair Vitals 92% after gait on RA, slight cough on occasion but denies SOB, AM PAC: How much help from another person does the patient currently need... turning from your back to your side while in a flat bed without using bedrails? 3 moving from lying on your back to sitting on the side of a flat bed without using bedrails? 3 moving to and from a bed to a chair? 3 standing up from a chair using your arms (e.g. wheelchair, or bedside chair)? 3 need to walk in hospital room? 3 climbing 3-5 steps with a railing? 2 AM PAC: BASIC MOBILITY SCORING AM PAC Moblity Raw Score 17 AM PAC Mobility CMS 0-100% Functional Percentage 43.83 AM PAC Mobility CMS G Code Modifier CK Education Education To use call light to request assistance with all mobility;Patient/Family Education Additional Comments encouraged to eat, encouraged to ambulate TID, provided bariatric walker for patient to use next time she was up. Asked to try to see which walker works best for her. Feel bariatric walker will be better for her. Patient Safety Patient Safety Patient left in chair with needs in reach;Chair/personal alarm activated Assessment Assessment Decreased functional mobility Prognosis Good Additional Comments great Goals Will Perform Supine To Sit With contact guard assistance;Not assessed Will Perform Sit to Supine With contact guard assistance;Not assessed Will Transfer Bed/Chair New goal;Supervision Will Ambulate With 2 wheel walker;101-150 feet;New goal;With stand by assist Time for Goal Achievement/Duration of Treatment cont 7 days Plan Treatment/Interventions Continue with current plan of care PT Frequency 5-6x/week Recommendation PT Recommendation Inpatient Rehab Facility (IRF) Additional PT discharge information pt progressing well Time In / Time Out 9:05-9:45 IP PT Treatment Minutes 40 * Mimi Bruno RN - 04/23/2020 6:52 PM EDT Clamp trial completed with only 40ml output. NG pulled and started on a clear liquid diet. * Tana Badillo APRN - 04/23/2020 5:38 PM EDT Acute Care Surgery Postoperative Note 5 Days Post-Op 04/16/2020 - 04/18/2020 s/p Procedure(s): DAVINCI ROBOTIC VENTRAL HERNIA REPAIR WITH MESH PLAN: Much improved since Friday Minimal NGT output. + flatus. Hungry Clamp trial- remove if output < 200. Ok for clears if passes NEEDS to mobilize out of bed. PT consult Abdomen obese, soft. Minimal incisional tenderness DVT/GI prophylaxis Vitals: 04/22/20 2036 04/23/20 0207 04/23/20 0208 04/23/20 0832 BP: 104/58 134/68 BP Location: Right arm Left arm Patient Position: Semi Fowlers Sitting Pulse: 69 88 Resp: 18 18 Temp: 97.4 ??F (36.3 ??C) 98.3 ??F (36.8 ??C) TempSrc: Oral Oral SpO2: 97% 97% 96% 94% Weight: Height: Wt Readings from Last 3 Encounters: 04/16/20 243 lb (110.2 kg) 01/24/20 274 lb 12.8 oz (124.6 kg) 11/19/19 272 lb (123.4 kg) Cosigned by Jocelyn Ramirez MD at 05/17/2020 8:10 AM EDT Associated attestation - Jocelyn Ramirez MD - 05/17/2020 8:10 AM EDT I have seen and examined the patient and there are no changes. * Petra Osullivan, OT - 04/23/2020 5:02 PM EDT 04/23/20 1413 OT Subjective Note Type Chart Review;Evaluation;Treatment/Progress Patient Room/Unit 2318 OT Subjective Comments #1 Pt agreeable to OT eval and tx. Discharge Information Evaluation to serve as discharge summary if no further treatment provided before the facility discharge Admitting Diagnosis Adm on 04/16 with mid abdominal pain, had DAVINCI ROBOTIC VENTRAL HERNIA REPAIR WITH MESH on 04/18 Past Med Hx ventral hernia, leukocytosis, hx of ovarian CA s/p resection, obesity, T2DM, HTN Precautions PT/OT Personal Protective Equipment Gloves;Surgical mask Home Living/Prior Function Type of Home House Home Layout One level Number of Steps 0 Additional Comments tub/shower unit; standard toilet Home Equipment Standard walker;Cane Level of Assistance Needs assistance with ADLs;Needs assistance with homemaking;Needs assistance with functional transfers Lives With Spouse;Son Additional Comments Pt reports assisting her spouse w/ ADLs. Pt states that spouse assists her w/ donning B socks/shoes. Pt completed sponge baths 50% of the time because she is fearful of falling while completing tub/shower t/f. Cognition Orientation Intact Arousal Normal Safety Awareness Normal Affect/Ability to cope Impaired Affect/Ability to cope impairment Anxious Command Following Normal Memory Intact Communication Impaired Hearing [place] Pain Screening Pain Rating 9 Pain Location Abdomen Observation Presentation Patient seated in chair Observation IV;Chair alarm;Oxygen - nasal cannula;NG tube UE Assessment LUE Assessment X (full AROM; strength 4/5 throughout) RUE Assessment X (full AROM; strength 4/5 throughout) Hand Function Gross Grasp Functional Coordination Functional ADL Interventions Where Assessed Chair;Standing at sink Grooming Assistance Set up;Contact guard LE Dressing Assistance Maximal;Thread LLE into pants;Thread RLE into pants;Don/doff L sock;Don/doffR sock Toileting Contact guard Additional Comments Attempted to complete grooming tasks while standing at sink. Pt fearful of doing this d/t decreased endurance, returned to chair and completed in chair w/ setup. Pt is requires increased time and encouragement throughout session to participate in or complete tasks. Transfers Sit to Stand Min assist ;With verbal cues Stand to Sit Contact guard assist;With verbal cues Bed to/from chair Contact guard assist;With verbal cues;Walker Additional Comments VC for hand placement Functional Transfers Toilet Transfers Min assist;Grab bars OT Gait Gait Contact guard assist;With verbal cues Gait Distance (Feet) 10 Feet (+12) Assistive Device 2 Wheel walker Balance Sitting Balance 4/5 moves/returns trunkal midpoint 1-2 inches in multiple planes Standing Balance 2/5 indep, requires both UE support AM PAC: How much help from another person does the patient currently need... putting on and taking off regular lower body clothing? 2 bathing (including washing, rinsing, drying)? 2 toileting, which includes using toilet, bedpan or urinal? 2 putting on and taking off regular upper body clothing? 2 taking care of personal grooming such as brushing teeth? 3 eating meals? 3 AM PAC DAILY ACTIVITY SCORING Daily Activity Raw Score 14 AM PAC Daily Activity CMS 0-100% Functional Percentage 59.67 AM PAC Daily Activity CMS G Code Modifier CK Education Education To use call light to request assistance with all mobility;Patient/Family Education;Role of Therapy;Safety with mobility;Cues for proper technique;Discharge planning;Up with assistance only;Safe and proper posture/positioning;Safe and proper technique with transfers Patient Safety Patient left in chair with needs in reach;Nursing notified of status;Chair/personal alarm activated Assessment Assessment Decreased ADL status;Decreased UE strength;Decreased endurance;Decreased self-care trans;Decreased high-level ADLs Prognosis Good;With continued OT s/p acute discharge Rationale for Skilled Therapy Fall Risk;Balance Deficits;Not safe with independent transfers;Needs verbal/tactile cues for ADL's;Needs physical cues for ADL's Goals Patient and/or Family Goal to go home Goals Yes Goal Formulation With Patient Time for Goal Achievement/Duration of Treatment 14 days ADL Goals Pt Will Perform All ADL's Stand by assist Functional Transfer Goals Pt Will Perform All Functional Transfers Stand by assist Arm Goals Pt Will Complete Theraband Exer B UE;1 set;10 reps;Level 1 Theraband Plan Treatment Interventions ADL retraining;Instrumental ADL retraining;Functional transfer training;UE strengthening/ROM;Endurance training;Patient/Family training OT Frequency 2-5x/wk Recommendation OT Recommendation Inpatient Rehab Facility (IRF) Time In / Time Out 1413/1518 (65 min) IP OT Evaluation Minutes 10 IP OT Individual Treatment Minutes 55 The total time spent caring for this patient included but was not limited to medical record review;hands-on treatment;communication and education with patient and/or family/caregiver;clinical judgement necessary for treatment planning for next session;communication with nursing and/or care coordinat ion/social work regarding patient status and discharge planning * Dakotah Babcock I, DO - 04/23/2020 7:37 AM EDT Images from the original note were not included. PROGRESS NOTE Handoff Completed:Yes Admitted on 04/16/2020 s/p ventral hernia repair, general surgery following Assessment/Plan: ??*S/p??Ventral hernia??repair ?Ileus - Surgery following - DVT ppx, GI ppx while NPO ?Temporal arteritis (HCC) ?PMR (polymyalgia rheumatica) (HCC) - Followed years ago by rheum - Biopsy negative but clinically suspected by rheum - On no treatment currently ?? Obesity, Class III, BMI 40-49.9 (morbid obesity) (HCC) - Complicates all aspects of care. Encourage weight loss ?Type 2 diabetes mellitus without complication (HCC) - FSBS with SSI ?? Dispo: Pending diet advancement and surgery recs VTE Prophylaxis: Anti-Embolism Intervention: Refused Qualifying Pharmacologic Prophylaxis enoxaparin (LOVENOX) injection 40 mg DAILY - LMWH/Xa Active Hospital Problems Diagnosis ??? *Ventral hernia ??? Obesity, Class III, BMI 40-49.9 (morbid obesity) (HCC) ??? Type 2 diabetes mellitus without complication (HCC) Subjective: States she is thirsty. Pain is well controlled. NGT still in place. Denies shortness of breath. Objective: BP 104/58 (BP Location: Right arm, Patient Position: Semi Fowlers) Pulse 69 Temp 97.4 ??F (36.3??C) (Oral) Resp 18 Ht 5' 4 (1.626 m) Wt 243 lb (110.2 kg) SpO2 96% No BMI 41.71 kg/m?? I/O last 3 completed shifts: In: 1415.9 [P.O.:180; I.V.:1195.9; NG/GT:40] Out: 950 [Urine:200; Emesis/NG output:750] Weight: 243 lb (110.2 kg) Constitutional: Obese. Alert and oriented to person, place, and time. No distress. NGT noted. Cardiovascular: Normal rate and regular rhythm. Exam reveals no friction rub. No murmur heard. Pulmonary/Chest: Effort normal and breath sounds normal. No respiratory distress. There are no wheezes. Abdominal: Soft. Bowel sounds are normal. No distension. There is no tenderness. There is no rebound and no guarding. Musculoskeletal: No edema. Neurological: Grossly normal. Skin: Skin is warm and dry. No erythema. Labs: Laboratory data and diagnostic testing reviewed 04/23/20. Dakotah Babcock DO 04/23/2020 7:38 AM * Gabriela Carranza RN - 04/22/2020 4:11 PM EDT Up to Chair with assist times 2 ambulated to BR assist times 2 gait belt and walker corey mod well, up to chair with assist of 2 most of the day and repositioned in the chair with pillows, NPo with icechips, NGT patent with greenish brown drainage noted and then this afternoon she co'ed blood in herNG tube sm amt bright red drainage noted placement confirmed and flushed with H2O with diff, no further bleeding at this time, abd large soft, BS hypoactive, no flatus, voiding without diff, afebrile, abd lap sited CDI, * Jocelyn Ramirez MD - 04/22/2020 1:27 PM EDT Acute Care Surgery Postoperative Note 4 Days Post-Op 04/16/2020 - 04/18/2020 s/p Procedure(s): DAVINCI ROBOTIC VENTRAL HERNIA REPAIR WITH MESH PLAN: continue NGT Encourage OOB and PT Vitals: 04/22/20 0913 04/22/20 0915 04/22/20 1234 04/22/20 1240 BP: 115/54 105/55 BP Location: Right arm Right arm Patient Position: Semi Fowlers Semi Fowlers Pulse: 80 78 Resp: 18 18 Temp: 98.3 ??F (36.8 ??C) TempSrc: Oral SpO2: (!) 81% 92% (!) 80% 94% Weight: Height: Wt Readings from Last 3 Encounters: 04/16/20 243 lb (110.2 kg) 01/24/20 274 lb 12.8 oz (124.6 kg) 11/19/19 272 lb (123.4 kg) * Dakotah Babcock DO - 04/22/2020 7:49 AM EDT PROGRESS NOTE Assessment/Plan: ??*S/p Ventral hernia repair Ileus - Surgery following - DVT ppx, GI ppx while NPO ?Temporal arteritis (HCC) ?PMR (polymyalgia rheumatica) (HCC) - Followed years ago by rheum - Biopsy negative but clinically suspected by rheum - On no treatment currently Obesity, Class III, BMI 40-49.9 (morbid obesity) (HCC) - Complicates all aspects of care. Encourage weight loss ?Type 2 diabetes mellitus without complication (HCC) - FSBS with SSI Dispo: Pending diet advancement and surgery recs VTE Prophylaxis: Anti-Embolism Intervention: Refused Qualifying Pharmacologic Prophylaxis enoxaparin (LOVENOX) injection 40 mg DAILY - LMWH/Xa Active Hospital Problems Diagnosis ??? *Ventral hernia ??? Obesity, Class III, BMI 40-49.9 (morbid obesity) (HCC) ??? Type 2 diabetes mellitus without complication (HCC) Subjective: Sitting up in chair. NGT in place. Says pain well controlled and no nausea currently. Objective: BP 99/55 (BP Location: Right arm, Patient Position: Semi Fowlers) Pulse 86 Temp 99.6 ??F (37.6 ??C) (Oral) Resp 17 Ht 5' 4 (1.626 m) Wt 243 lb (110.2 kg) SpO2 95% No BMI 41.71 kg/m?? I/O last 3 completed shifts: In: 694.2 [P.O.:420; I.V.:124.2; NG/GT:150] Out: 1775 [Urine:75; Emesis/NG output:1700] Weight: 243 lb (110.2 kg) Constitutional: Obese. Alert and oriented to person, place, and time. No distress. NGT noted. Cardiovascular: Normal rate and regular rhythm. Exam reveals no friction rub. No murmur heard. Pulmonary/Chest: Effort normal and breath sounds normal. No respiratory distress. There are no wheezes. Abdominal: Soft. Bowel sounds are normal. No distension. There is no tenderness. There is no rebound and no guarding. Musculoskeletal: No edema. Neurological: Grossly normal. Skin: Skin is warm and dry. No erythema. Labs: Laboratory data and diagnostic testing reviewed 04/22/20. Dakotah Babcock DO 04/22/2020 7:49 AM * Lisbet Vogel RN - 04/22/2020 4:10 AM EDT Patient without nausea overnight. IVF started at 50/hr. NGT with brown output. Abd incision c/d/i. Up with assist of 2. Call light and belongings are within reach. Bed alarm on,non-skid socks on for safety. * Lisbet Vogel RN - 04/21/2020 9:23 PM EDT Message to Renetta Hall APRN about starting possible IVF? Is NPO. * [place] - 04/21/2020 2:52 PM EDT 04/21/20 1451 Pastoral Care Encounter Visited With Patient Date of visit 04/21/20 Visit Type Initial Need to follow-up? Yes [place] Needs Pastoral care brochure;Bible Spiritual Needs Denomination? Worship [place] Affiliation None Pastoral Care Issues Pastoral Care Issues Coping;Loneliness Coping Resources Miranda;Family;Friends;Prayer;Scripture Pastoral Care Plan/Intervention Plan/Intervention Active Listening;Continue to Follow;Prayer * Adriane Webb MSW - 04/21/2020 12:10 PM EDT 04/21 SW Update: note PT recommendation of Inpatient Rehab Facility (IRF);[facility] ([facility]). SW met with pt at bedside and discussed. SW provided facility lists and Medicare.gov information sheet. Pt states interest in [facility] re[facility]. Referral sent. Awaiting response. Pt states no other needs. SW/CC following. * Heriberto Shirley DO - 04/21/2020 11:42 AM EDT Images from the original note were not included. PROGRESS NOTE Assessment/Plan: ?Obesity, Class III, BMI 40-49.9 (morbid obesity) (HCC) -encourage weight loss ?Type 2 diabetes mellitus without complication (HCC) -ssi, follow bg and keep 140-180 while here ?*s/p Ventral hernia repair ileus -surgery following -dvt ppx, gi ppx while npo ?Temporal arteritis (HCC) ?PMR (polymyalgia rheumatica) (HCC) -followed years ago by rheum -biopsy negative but clinically suspected by rheum -pt on no tx now ?? Dispo:? Pending post op recovery VTE Prophylaxis: Anti-Embolism Intervention: Refused Qualifying Pharmacologic Prophylaxis enoxaparin (LOVENOX) injection 40 mg DAILY - LMWH/Xa Active Hospital Problems Diagnosis ??? *Ventral hernia ??? Obesity, Class III, BMI 40-49.9 (morbid obesity) (HCC) ??? Type 2 diabetes mellitus without complication (HCC) Subjective: NG placed Slow to move and recover Objective: BP 105/69 (BP Location: Right arm, Patient Position: Semi Fowlers) Pulse 85 Temp 97.5 ??F (36.4??C) (Oral) Resp 17 Ht 5' 4 (1.626 m) Wt 243 lb (110.2 kg) SpO2 97% No BMI 41.71 kg/m?? I/O last 3 completed shifts: In: 240 [P.O.:240] Out: 450 [Urine:100; Emesis/NG output:350] Weight: 243 lb (110.2 kg) Constitutional: Alert Cardiovascular: Normal rate and regular rhythm. Exam reveals no friction rub. No murmur heard. Pulmonary/Chest: Effort normal and breath sounds normal. No respiratory distress. There are no wheezes. Abdominal: Soft. Bowel sounds are normal. No distension. There is no tenderness. There is no rebound and no guarding. Musculoskeletal: No edema. Neurological: Grossly normal. Skin: Skin is warm and dry. No erythema. Labs: Laboratory data and diagnostic testing reviewed 04/21/20. Heriberto Shirley DO 04/21/2020 11:43 AM * Tana Badillo APRN - 04/21/2020 11:00 AM EDT Acute Care Surgery Postoperative Note 3 Days Post-Op 04/16/2020 - 04/18/2020 s/p Procedure(s): DAVINCI ROBOTIC VENTRAL HERNIA REPAIR WITH MESH PLAN: Diet advanced yesterday and patient nauseated. Noted emesis overnight and placement of NGT this AM.Currently with ~ 650 in cannister NPO- NGT to LWS. Ok for minimal ice chips, hard candy chewing gum Denies flatus or BM Reports no sleep last night an exhausted this AM. Encouraged more frequent ambulation Abdomen soft, obese. Tenderness to incisions, umbilical site with edema and ecchymosis Patient reports voiding, no documentation. Record I&O's. Up 4L since admission WBC trending down, follow DVT/GI prophylaxis Vitals: 04/20/20 0828 04/20/20 0951 04/20/20 2108 04/21/20 0751 BP: 140/84 99/79 105/69 BP Location: Right arm Right arm Right arm Patient Position: Sitting Semi Fowlers Semi Fowlers Pulse: 86 82 85 Resp: Temp: 100.4 ??F (38 ??C) 97.3 ??F (36.3 ??C) 97.5 ??F (36.4 ??C) TempSrc: Axillary Oral Oral SpO2: 90% 92% 96% 97% Weight: Height: Wt Readings from Last 3 Encounters: 04/16/20 243 lb (110.2 kg) 01/24/20 274 lb 12.8 oz (124.6 kg) 11/19/19 272 lb (123.4 kg) Cosigned by Jocelyn Ramirez MD at 05/17/2020 8:06 AM EDT Associated attestation - Jocelyn Ramirez MD - 05/17/2020 8:06 AM EDT I have seen and examined the patient and there are no changes. * Ashanti Lee RN - 04/21/2020 5:17 AM EDT X-ray results sent to Dr. Butts, orders for NG insertion placed.. Multiple attempts at NG unsuccessful. * Ashanti Lee RN - 04/21/2020 3:36 AM EDT VSS. Afebrile. Pt with complaints of pain this shift controlled with PRN medication. Patient with episodes of nausea and vomiting this shift. Made Dr. Butts aware, abd x-ray ordered. Non-skid socks on for safety. Bed alarm on and in lowest position. Call light and belongings within reach. * Katherine Aguilar, PT - 04/20/2020 5:24 PM EDT 04/20/20 1436 PT Subjective Note Type Evaluation Patient Room/Unit 2318 PT Subjective Comments #1 states she is very sore, maybe alittle better than prior to sx, stuff tastes funny Discharge Information Evaluation to serve as discharge summary if no further treatment provided before the facility discharge Admitting Diagnosis Adm on 04/16 with mid abdominal pain, had DAVINCI ROBOTIC VENTRAL HERNIA REPAIR WITH MESH on 04/18 Past Med Hx ventral hernia, leukocytosis, hx of ovarian CA s/p resection, obesity, T2DM, HTN Pain Screening PT/OT Patient Currently in Pain Yes Pain Rating 9 Pain Location Abdomen Cognition Orientation Intact Arousal Impaired Arousal Impairment Lethargic Safety Awareness Normal Affect/Ability to cope Impaired Affect/Ability to cope impairment Anxious Command Following Normal Memory Intact Communication Impaired Hearing [place] Additional comments Pt very fearful, reports a near fall the other night and is now very fearful tomove, later stated, I just need to do it and get over it Precautions PT/OT Personal Protective Equipment Gloves;Surgical mask Home Living/Prior Function Type of Home House Number of Steps 0 Home Equipment Standard walker;Cane Level of Assistance Ambulatory in home Lives With Spouse;Son Additional Comments used cane inside and walker when outside, does sits bath at home, lady friend does grocery shopping or her brother, pt states her is in worse shape than she is, son works 15 hours per day, reports falls but it has been over a year Observation Presentation Patient resting in bed Observation Oxygen - nasal cannula UE Assessment LUE Additional Comments full AROM, shoulder and elbow ~ 4/4 RUE Additional Comments full AROM, shoulder and elbow ~ 4/4 LE Assessment LLE Additional Comments ROM of hip limited by girth, knee flex limited to ~ 85, HF limited ~ 85* ankle WFLs, HF 3, KE 4, RLE Additional Comments ROM of hip limited by girth, knee flex limited to ~ 85, HF limited ~ 85* ankle WFLs, HF 3, KE 4, Bed Mobility Rolling Unable to assess (comment) Supine to Sit Mod assist ;Head of bed elevated Additional Comments Very slowly scooted to EOB, very fearful. Stated she was lightheaded but once give UE support [place] pt stated she felt better, O2 94%, B/P 124/93 Transfers Sit to Stand Min assist ;With 2 people Stand to Sit Contact guard assist Additional Comments cues for fwd flex prior to stance which causes abd pain, educated on need for safe sit to stand Gait Gait Contact guard assist;With 2 people assist Gait Distance (Feet) 10 Feet (x2) Assistive Device 2 Wheel walker Additional Comments to bthroom and then back, voided continenetly, upon sitting pt stated she just needs to move more AM PAC: How much help from another person does the patient currently need... turning from your back to your side while in a flat bed without using bedrails? 2 moving from lying on your back to sitting on the side of a flat bed without using bedrails? 2 moving to and from a bed to a chair? 2 standing up from a chair using your arms (e.g. wheelchair, or bedside chair)? 2 need to walk in hospital room? 2 climbing 3-5 steps with a railing? 1 AM PAC: BASIC MOBILITY SCORING AM PAC Moblity Raw Score 11 AM PAC Mobility CMS 0-100% Functional Percentage 66.76 AM PAC Mobility CMS G Code Modifier CL Education Education To use call light to request assistance with all mobility;Patient/Family Education;Role of Therapy;Safety with mobility;Cues for proper technique;Discharge planning Patient Safety Patient Safety Patient left in chair with needs in reach;Chair/personal alarm activated;Nursing notified of status Assessment Assessment Decreased gait;Decreased functional mobility;Decreased ADL status;Decreased Right Upper Extremity strength;Decreased RightLower Extremity strength;Decreased Left Upper Extremity strength;Decreased Left Lower Extremity strength;Decreased activity tolerance Prognosis Good;With continued PT s/p acute discharge Goals Patient and/or Family Goal to go home PT GOALS (Yes/No) Yes Add Goals Will Perform Supine To Sit With contact guard assistance Will Perform Sit to Supine With contact guard assistance Will Transfer Bed/Chair With contact guard assistance;With stand by assist Will Ambulate With 2 wheel walker;101-150 feet;With contact guard assistance (on RA) Time for Goal Achievement/Duration of Treatment 8 days Plan Treatment/Interventions Gait training;Bed mobility;Functional transfer training;UE strengthening/ROM;LE strengthening/ROM;Increase activity tolerance ;Patient/Family training PT Frequency 5-6x/week Recommendation PT Recommendation Inpatient Rehab Facility (IRF);[facility] ([facility]) Additional PT discharge information feel pt will be come more confident quickly with more activity,needs to keep moving Time In / Time Out 4:10-4:47 IP PT Evaluation Minutes 10 IP PT Treatment Minutes 27 04/20/20 1436 PT Subjective Note Type Evaluation Patient Room/Unit 2318 PT Subjective Comments #1 states she is very sore, maybe alittle better than prior to sx, stuff tastes funny Discharge Information Evaluation to serve as discharge summary if no further treatment provided before the facility discharge Admitting Diagnosis Adm on 04/16 with mid abdominal pain, had DAVINCI ROBOTIC VENTRAL HERNIA REPAIR WITH MESH on 04/18 Past Med Hx ventral hernia, leukocytosis, hx of ovarian CA s/p resection, obesity, T2DM, HTN Pain Screening PT/OT Patient Currently in Pain Yes Pain Rating 9 Pain Location Abdomen Cognition Orientation Intact Arousal Impaired Arousal Impairment Lethargic Safety Awareness Normal Affect/Ability to cope Impaired Affect/Ability to cope impairment Anxious Command Following Normal Memory Intact Communication Impaired Hearing [place] Additional comments Pt very fearful, reports a near fall the other night and is now very fearful tomove, later stated, I just need to do it and get over it Precautions PT/OT Personal Protective Equipment Gloves;Surgical mask Home Living/Prior Function Type of Home House Number of Steps 0 Home Equipment Standard walker;Cane Level of Assistance Ambulatory in home Lives With Spouse;Son Additional Comments used cane inside and walker when outside, does sits bath at home, lady friend does grocery shopping or her brother, pt states her is in worse shape than she is, son works 15 hours per day, reports falls but it has been over a year Observation Presentation Patient resting in bed Observation Oxygen - nasal cannula UE Assessment LUE Additional Comments full AROM, shoulder and elbow ~ 4/4 RUE Additional Comments full AROM, shoulder and elbow ~ 4/4 LE Assessment LLE Additional Comments ROM of hip limited by girth, knee flex limited to ~ 85, HF limited ~ 85* ankle WFLs, HF 3, KE 4, RLE Additional Comments ROM of hip limited by girth, knee flex limited to ~ 85, HF limited ~ 85* ankle WFLs, HF 3, KE 4, Bed Mobility Rolling Unable to assess (comment) Supine to Sit Mod assist ;Head of bed elevated Additional Comments Very slowly scooted to EOB, very fearful. Stated she was lightheaded but once give UE support [place] pt stated she felt better, O2 94%, B/P 124/93 Transfers Sit to Stand Min assist ;With 2 people Stand to Sit Contact guard assist Additional Comments cues for fwd flex prior to stance which causes abd pain, educated on need for safe sit to stand Gait Gait Contact guard assist;With 2 people assist Gait Distance (Feet) 10 Feet (x2) Assistive Device 2 Wheel walker Additional Comments to bthroom and then back, voided continenetly, upon sitting pt stated she just needs to move more AM PAC: How much help from another person does the patient currently need... turning from your back to your side while in a flat bed without using bedrails? 2 moving from lying on your back to sitting on the side of a flat bed without using bedrails? 2 moving to and from a bed to a chair? 2 standing up from a chair using your arms (e.g. wheelchair, or bedside chair)? 2 need to walk in hospital room? 2 climbing 3-5 steps with a railing? 1 AM PAC: BASIC MOBILITY SCORING AM PAC Moblity Raw Score 11 AM PAC Mobility CMS 0-100% Functional Percentage 66.76 AM PAC Mobility CMS G Code Modifier CL Education Education To use call light to request assistance with all mobility;Patient/Family Education;Role of Therapy;Safety with mobility;Cues for proper technique;Discharge planning Patient Safety Patient Safety Patient left in chair with needs in reach;Chair/personal alarm activated;Nursing notified of status Assessment Assessment Decreased gait;Decreased functional mobility;Decreased ADL status;Decreased Right Upper Extremity strength;Decreased RightLower Extremity strength;Decreased Left Upper Extremity strength;Decreased Left Lower Extremity strength;Decreased activity tolerance Prognosis Good;With continued PT s/p acute discharge Goals Patient and/or Family Goal to go home PT GOALS (Yes/No) Yes Add Goals Will Perform Supine To Sit With contact guard assistance Will Perform Sit to Supine With contact guard assistance Will Transfer Bed/Chair With contact guard assistance;With stand by assist Will Ambulate With 2 wheel walker;101-150 feet;With contact guard assistance (on RA) Time for Goal Achievement/Duration of Treatment 8 days Plan Treatment/Interventions Gait training;Bed mobility;Functional transfer training;UE strengthening/ROM;LE strengthening/ROM;Increase activity tolerance ;Patient/Family training PT Frequency 5-6x/week Recommendation PT Recommendation Inpatient Rehab Facility (IRF);[facility] ([facility]) Additional PT discharge information feel pt will be come more confident quickly with more activity,needs to keep moving Time In / Time Out 4:10-4:47 IP PT Evaluation Minutes 10 IP PT Treatment Minutes 27 * Gabriela Carranza RN - 04/20/2020 3:30 PM EDT Rested in bed this am as she was unable to to stand up this am even with the steady as couldn't getthe flip seats under her, used the bedpan, PT in to see but pt states that she was sleepy and PT will be back to see her later today changed to CL diet today as she didn't feel like reg food FSBS andinsulin given as ordered and directed, turned and repositioned in bed per staff with some assist from her, Oxycodone 5 mg po times 1 this shift for abd pain with decrease in sx noted with in 1hr afebrile passing flatus voiding QS per bedpan * Heriberto Shirley, - 04/20/2020 12:25 PM EDT Images from the original note were not included. PROGRESS NOTE Assessment/Plan: Obesity, Class III, BMI 40-49.9 (morbid obesity) (HCC) -encourage weight loss ?Type 2 diabetes mellitus without complication (HCC) -ssi, follow bg and keep 140-180 while here ?*Ventral hernia -surgery following -dvt ppx, gi ppx while npo ?Temporal arteritis (HCC) ?PMR (polymyalgia rheumatica) (HCC) -followed years ago by rheum -biopsy negative but clinically suspected by rheum -pt on no tx now ?? Dispo:? Pending post op VTE Prophylaxis: Anti-Embolism Intervention: Refused Qualifying Pharmacologic Prophylaxis enoxaparin (LOVENOX) injection 40 mg DAILY - LMWH/Xa Active Hospital Problems Diagnosis ??? *Ventral hernia ??? Obesity, Class III, BMI 40-49.9 (morbid obesity) (HCC) ??? Type 2 diabetes mellitus without complication (HCC) Subjective: Weak Talking on phone and eating during exam I talked to sister on phone Objective: BP 140/84 (BP Location: Right arm, Patient Position: Sitting) Pulse 86 Temp 100.4 ??F (38 ??C) (Axillary) Resp 18 Ht 5' 4 (1.626 m) Wt 243 lb (110.2 kg) SpO2 92% No BMI41.71 kg/m?? I/O last 3 completed shifts: In: 1600.1 [P.O.:240; I.V.:1360.1] Out: - Weight: 243 lb (110.2 kg) Constitutional: Alert and oriented to person, place, and time. No distress. obese Cardiovascular: Normal rate and regular rhythm. Exam reveals no friction rub. No murmur heard. Pulmonary/Chest: Effort normal and breath sounds normal. No respiratory distress. There are no wheezes. Abdominal: Soft. Bowel sounds are normal. No distension. There is no tenderness. There is no rebound and no guarding. Musculoskeletal: No edema. Neurological: Grossly normal. Skin: Skin is warm and dry. No erythema. Labs: Laboratory data and diagnostic testing reviewed 04/20/20. Heriberto Shirley DO 04/20/2020 12:25 PM * Kamila Coughlin APRN - 04/20/2020 11:53 AM EDT POD# 2 s/p robot VHR with mesh - Nauseated today. Feels like she can't eat. No flatus. - Abd soft, mildly distended, mid abd guarding. Incisions c/d/i - Clear liquids. If she has worsening nausea or vomits, NPO and place NGT to CLWS - Having trouble walking. PT ordered - DVT/GI prophylaxis - Not ready for discharge Cosigned by Jocelyn Ramirez MD at 05/17/2020 8:11 AM EDT Associated attestation - Jocelyn Ramirez MD - 05/17/2020 8:11 AM EDT I have seen and examined the patient and there are no changes. * Ashanti Lee RN - 04/20/2020 4:23 AM EDT VSS. Afebrile. Pt with complaints of pain this shift controlled with PRN medication. Pt refusing turns this shift. Pt educated on the importance of turning and relieving pressure, pt still chose to refuse to turn. Pt incontinent of urine this shift. Non-skid socks on for safety. Bed alarm on and inlowest position. Call light and belongings within reach. * Kamila Coughlin APRN - 04/19/2020 1:45 PM EDT POD# 1 s/p robot VHR with mesh - Feeling much better. Tolerating clears. Pain controlled. No flatus - abd soft, non-distended, appropriately tender. Incisions c/d/i - Low fiber diet. Small meals while awaiting return of bowel fnx. - Mobilize - DVT/GI prophylaxis - Home when tolerating diet, pain controlled Cosigned by Jocelyn Ramirez MD at 04/19/2020 5:20 PM EDT Associated attestation - Jocelyn Ramirez MD - 04/19/2020 5:20 PM EDT I have seen and examined the patient and there are no changes. * Heriberto Shirley DO - 04/19/2020 11:16 AM EDT Images from the original note were not included. PROGRESS NOTE Assessment/Plan: Obesity, Class III, BMI 40-49.9 (morbid obesity) (HCC) -encourage weight loss ?Type 2 diabetes mellitus without complication (HCC) -ssi, follow bg and keep 140-180 while here ?*Ventral hernia -surgery following -dvt ppx, gi ppx while npo ?Temporal arteritis (HCC) ?PMR (polymyalgia rheumatica) (HCC) -followed years ago by rheum -biopsy negative but clinically suspected by rheum -pt on no tx now ?? Dispo: Pending post op VTE Prophylaxis: Qualifying Pharmacologic Prophylaxis enoxaparin (LOVENOX) injection 40 mg DAILY - LMWH/Xa Active Hospital Problems Diagnosis ??? *Ventral hernia ??? Obesity, Class III, BMI 40-49.9 (morbid obesity) (HCC) ??? Type 2 diabetes mellitus without complication (HCC) Subjective: Now post op Drowsy Up to chair Objective: BP 132/65 (BP Location: Right arm, Patient Position: Semi Fowlers) Pulse 82 Temp 98.7 ??F (37.1??C) (Oral) Resp 14 Ht 5' 4 (1.626 m) Wt 243 lb (110.2 kg) SpO2 97% No BMI 41.71 kg/m?? I/O last 3 completed shifts: In: 3034.6 [I.V.:2984.6; IV Piggyback:50] Out: 820 [Urine:800; Blood:20] Weight: 243 lb (110.2 kg) Constitutional: Alert and oriented to person, place, and time. No distress. Cardiovascular: Normal rate and regular rhythm. Exam reveals no friction rub. No murmur heard. Pulmonary/Chest: Effort normal and breath sounds normal. No respiratory distress. There are no wheezes. Abdominal: Soft. Bowel sounds are normal. No distension. There is no tenderness. There is no rebound and no guarding. Musculoskeletal: No edema. Neurological: Grossly normal. Skin: Skin is warm and dry. No erythema. Labs: Laboratory data and diagnostic testing reviewed 04/19/20. Heriberto Shirley DO 04/19/2020 11:16 AM * Ced Kamila Shannan, 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 - 04/18/2020 1:45 PM EDT GENERAL SURGERY PROGRESS NOTE IMPRESSION/PLAN Alyssa Campos is a 64 y.o. female that we are seeing for CC of acute abdominal pain. Dx with ventral hernia, leukocytosis, hx of ovarian CA s/p resection, obesity, T2DM, HTN Admitted on 04/16/2020. Still sore, but feeling ok We discussed the delay in her surgery d/t emergent cases. While she isn't happy about it , she understands. Mainly she just wants to eat and drink. Continue NPO with ice chips/meds Plan for surgery later today SUBJECTIVE: Thirsty and hungry Vitals: 04/18/20 0804 04/18/20 0848 04/18/20 1013 04/18/20 1525 BP: 100/44 116/56 98/49 97/40 BP Location: Right arm Right arm Right arm Patient Position: Semi Fowlers Sitting Semi Fowlers Pulse: 74 68 62 Resp: 16 16 18 Temp: 97.9 ??F (36.6 ??C) 97.7 ??F (36.5 ??C) TempSrc: Oral Oral SpO2: 95% 93% Weight: Height: ABDOMEN: soft, non-distended, obese. Ventral hernia. Tender around the hernia site. LABS AND RADIOLOGY *I reviewed the following labs and studies WBC: Lab Results Component Value Date WBC 7.7 04/18/2020 Hemoglobin/Hematocrit: Lab Results Component Value Date HGB 10.5 (L) 04/18/2020 HCT 35.1 04/18/2020 BMP: Lab Results Component Value Date NA 139 04/18/2020 K 4.1 04/18/2020 CL 103 04/18/2020 CO2 25 04/18/2020 BUN 14 04/18/2020 CREATININE 0.99 04/18/2020 CALCIUM 9.2 04/18/2020 Ek Ekg 12 Lead Result Date: 04/18/2020 NOTICE: Preliminary tracing available for review; Final Interpretation by physician to follow. [facility] Test Date: 2020-04-18 Pat Name: ALYSSA CAMPOS Department: DEPID Room: 2318 Gender: Female [employer]: [place] : 1955 Requested By: RENETTA MILES Order Number: [id number] Reading MD: Alvaro Membreno MD Measurements Intervals [place] Rate: 63 P: 53 MT: 211 QRS: -34 QRSD: 94 T: 21 QT: 372 QTc: 382 Interpretive Statements SINUS RHYTHM WITH FIRST DEGREE AV BLOCK LEFT AXIS DEVIATION minimal change from 03/13/17 record Electronically Signed On 04-18-2020 8:55:51 EDTby Alvaro Membreno MD Ct Abd Pel Ed Fast W Contrast Result Date: 04/16/2020 CT ABDOMEN AND PELVIS WITH CONTRAST (FAST), 04/16/2020 5:40 PM CLINICAL HISTORY: - hernia, abdominal pain COMPARISON: 04/02/2014 PROCEDURE COMMENTS: Multi-detector volumetric scanning of the abdomen and pelvis with multiplanar reformatting per expedited protocol. 100 mL Isovue 370 IV. Automated exposure control for dose reduction was used. CTDIvol: 25.3 mGy. DLP: 1241 mGy-cm. FINDINGS: LOWER CHEST: Mild lingular atelectasis. ABDOMEN & PELVIS: Prior cholecystectomy. Liver, spleen, pancreas, and adrenal glands are unremarkable. Kidneys enhance symmetrically with no hydronephrosis or suspicious lesion. Bladder is unremarkable. Large multilobulated fat-containing hernia of the left anterior abdominal wall with associated inflammation of the saphenous fat. No fluid collection within the herniasac. There are 2 separate abdominal wall defects each demonstrating a relatively narrow neck of approximately 2 cm. The hernia sac measures up to 13 cm in transverse dimension and 12 cm in craniocaudal dimension. There is mild mesenteric inflammation and perienteric inflammatory change of an adjacent loop of small bowel, although the bowel does not extend into the hernia and there is no evidence for bowel obstruction. No lymphadenopathy. Mild atherosclerotic calcifications. No acute osseous abno rmality. Large multilobulated fat-containing left ventral hernia with associated inflammatory change change of the subcutaneous fat. Perienteric and mesenteric inflammatory change of the adjacent small bowel is likely reactive. The small bowel does not extend into the hernia sac and there is no evidence forbowel obstruction. - Cosigned by Regan Butts MD at 04/18/2020 5:43 PM EDT Associated attestation - Regan Butts MD - 04/18/2020 5:43 PM EDT EGS Progress Note Patient seen and examined. Reviewed surgical plan of robotic hernia repair with possible mesh, possible bowel resection. Risk, benefits and alternatives discussed. All questions answered. Patient stated their understanding and they wish to proceed with surgery. Regan Butts MD * Heriberto Shirley DO - 04/18/2020 11:48 AM EDT Images from the original note were not included. PROGRESS NOTE Assessment/Plan: Obesity, Class III, BMI 40-49.9 (morbid obesity) (HCC) -encourage weight loss ?? Type 2 diabetes mellitus without complication (HCC) -ssi, follow bg and keep 140-180 while here ?? *Ventral hernia -surgery following -dvt ppx, gi ppx while npo ?? Temporal arteritis (HCC) PMR (polymyalgia rheumatica) (HCC) -followed years ago by rheum -biopsy negative but clinically suspected by rheum -pt on no tx now Dispo: Pending post op VTE Prophylaxis: Active Hospital Problems Diagnosis ??? *Ventral hernia ??? Obesity, Class III, BMI 40-49.9 (morbid obesity) (HCC) ??? Type 2 diabetes mellitus without complication (HCC) Subjective: Denies new issues Objective: BP 98/49 (BP Location: Right arm, Patient Position: Sitting) Pulse 68 Temp 97.9 ??F (36.6 ??C) (Oral) Resp 16 Ht 5' 4 (1.626 m) Wt 243 lb (110.2 kg) SpO2 95% No BMI 41.71 kg/m?? I/O last 3 completed shifts: In: 1224 [P.O.:120; I.V.:1004; IV Piggyback:100] Out: - Weight: 243 lb (110.2 kg) Constitutional: Alert and oriented to person, place, and time.obese Cardiovascular: Normal rate and regular rhythm. Exam reveals no friction rub. No murmur heard. Pulmonary/Chest: Effort normal and breath sounds normal. No respiratory distress. There are no wheezes. Abdominal: Soft. Bowel sounds are normal. No distension. There is no tenderness. There is no rebound and no guarding. Musculoskeletal: No edema. Neurological: Grossly normal. Skin: Skin is warm and dry. No erythema. Labs: Laboratory data and diagnostic testing reviewed 04/18/20. Heriberto Shirley DO 04/18/2020 11:48 AM * Adriane Webb MSW - 04/17/2020 11:31 AM EDT 04/17/20 1129 Discharge Planning Evaluation Completed by CC/SW Yes ED Screening Completed Initial screening complete, post-acute discharge planning evaluations needs identified, assessment to follow Referral Source Chart review What brought the patient to the Hospital? Abdominal wall hernia Who you interviewed In person interview with patient Mental Status Alert and oriented Decision Maker Patient Who does pt identify as their caregiver/support person who will be their active partner in the dc planning process Pt reports no caregiver/support person for dc planning process Does patient need media center specialist? No Activities of Daily Living Prior to Admission Independent with ADLS;Independent with mobility;Needsassistance with Homemaking DME at Home Cane;Walker;Nebulizer Walker type 2 wheel Patient's Living Arrangments Prior to Admission? Private Residence With Other(s) Private Residence With Other(s) Spouse/Significant Other;Children ( and son) Support Systems Spouse/Significant Other;Children Quality of Support System Good How hard is it for you to pay for the basics like food, housing, medical care & heating? Not very hard Within the past 12 months, have you worried that your food would run out before you got money to buy more? Never true Within the past 12 months, the food you bought just didn't last and you didn't have money to get more? Never true Within the past 12 months, has lack of transportation kept you from medical appointments or from getting medications? No Within the past 12 months, has lack of transportation kept you from meetings, work or getting things needed for daily living? No Follow Up Assigned To: Referral to Social work not necessary Social Work already completing dc planning assessment Anticipated post-acute care needs Home with OP Follow Up Discussed discharge plans with Patient/Family/Caregiver/Support Person Yes, Discussed with patient Discussed discharge plans with Care Team at [facility] Yes, with nurse in attendance;Yes, with doctor in attendance Patient's goals for recovery Return to Prior Level of Functioning Community Resources Patient Toolkit Actual Discharge Plan 04/17 TONIE Initial Assessment: chart reviewed. Pt is alert and oriented X4. SW met with pt at bedside and introduced self and role. Pt states she lives with her and son in a house with no steps to get inside. Pt states her PCP is Dr. Cristiane Pop. Pt states her pharmacy is [facility] in [place]. Pt states she can generally afford all her medications, food, transportation, utilities, and other bills. Pt states her bladder medications can be expensive sometimes but states she generally does not go without any medications. Pt Tool Kit discussed and provided to pt. Pt states she has a cane, 2-wheel walker, and nebulizer she was using prior to admission. Pt states she bruce s never used HH. Pt states she normally transports via a friend. Pt states her friend will transport at d/c. Pt states no d/c planning support person as she wishes to update family and friends herself. Pt states no d/c needs. SW/CC following. documented in this encounter H&P Notes * Heriberto Shirley DO - 04/17/2020 9:57 AM EDT [facility] History and Physical Name: Alyssa Campos ADDRESS: [address] [place] [id number] : 1955 AGE: 64 y.o. Admitting Physician: Heriberto Shirley DO Date of Admit: 04/16/2020 Chief Complaint: abd pain History of Present Illness: 64 yo F with hx of htn, dm, ovarian CA, hernia p/w abd pain x years. Pain worse with movement, better at rest. Described as sharp, mid abd, radiates to the sides. Associated with vomiting. Medications Prior to Admission Medication Sig Dispense Refill Last Dose ??? albuterol (PROVENTIL) 2.5 mg /3 mL (0.083 %) Inhl Solution for Nebulization Take 3 mL by nebulization every 4 hours as needed for Wheezing. 1 box 6 Taking at Unknown time ??? AMITIZA 24 mcg Oral Capsule TAKE ONE CAPSULE BY MOUTH TWICE A DAY. THIS REPLACES LINZESS. 126 Cap 2 04/15/2020 at AM ??? amLODIPine (NORVASC) 10 mg Oral Tablet Take 1 Tab by mouth daily. 63 Tab 2 04/15/2020 at AM ??? aspirin (ASPIRIN LOW DOSE) 81 mg Oral Tablet, Delayed Release (E.C.) Take 1 Tab by mouth daily.30 Tab 5 04/15/2020 at AM ??? atorvastatin (LIPITOR) 20 mg Oral Tablet TAKE 1 TABLET BY MOUTH EVERY DAY 90 Tab 1 04/15/2020 at PM ??? Blood-Glucose Meter Misc Kit Please fill with what her ins will cover 1 Kit 0 Taking at Unknowntime ??? CALCIUM ORAL Take 1 Tab by mouth daily. 04/15/2020 at AM ??? celecoxib (CELEBREX) 200 mg Oral Capsule Take 1 Cap by mouth daily. 30 Cap 5 04/15/2020 at AM ??? cholecalciferol, vitamin D3, (VITAMIN D3) 25 mcg (1,000 unit) Oral Tablet Take 1 Tab by mouth daily. 30 Tab 11 04/15/2020 at AM ??? docusate sodium (COLACE) 100 mg Oral Capsule Take 1 Cap by mouth 2 times daily. 60 Cap 0 04/15/2020 at AM ??? fluticasone propionate (FLONASE) 50 mcg/actuation Nasl [place], Suspension Use 1 spray(s) in eachnostril once daily 16 g 0 04/15/2020 at AM ??? fUROsemide (LASIX) 40 mg Oral Tablet Take 1 Tab by mouth daily as needed. 30 Tab 6 Taking at 04/13/20 ??? lisinopriL (PRINIVIL;ZESTRIL) 20 mg Oral Tablet tablet Take 1 Tab by mouth daily. 63 Tab 2 04/15/2020 at AM ??? loratadine (CLARITIN) 10 mg Oral Tablet Take 1 Tab by mouth daily. 63 Tab 2 04/15/2020 at AM ??? metFORMIN (GLUCOPHAGE) 500 mg Oral Tablet Take 1 Tab by mouth daily (with breakfast). 63 Tab 2 04/15/2020 at AM ??? naproxen sodium (ANAPROX) 220 mg Oral Tablet Take 1 Tab by mouth 2 times daily (with meals). 30Tab 5 04/15/2020 at AM ??? omeprazole (PRILOSEC) 20 mg Oral Capsule, Delayed Release(E.C.) Take 1 Cap by mouth daily. 90 Cap 2 04/15/2020 at AM ??? oxybutynin (DITROPAN-XL) 10 mg Oral Tablet Extended Rel 24 hr Take 1 tablet by mouth twice daily 60 Tab 0 04/15/2020 at AM ??? linaCLOtide (LINZESS) 145 mcg Oral Capsule Take 1 Cap by mouth before breakfast. (Patient not taking: Reported on 04/16/2020) 30 Cap 6 Not Taking at Unknown time Allergies Allergen Reactions ??? Amitriptyline Nausea And Vomiting ??? Amoxil [Amoxicillin] Hives ??? Clarithromycin hives ??? Clindamycin Nausea Only ??? Egg Nausea Only ??? Naproxen Rash ??? Nexium [Esomeprazole Magnesium] Hives and Rash Blisters in Mouth Past Medical History: Diagnosis Date ??? Anemia [...] BIOPSY ; Surgeon: Christa Chavez MD; Location: [facility] MAIN OR; Service: General ??? CARDIAC CATHETERIZATION 04/2015 ??? CHOLECYSTECTOMY 1989 ??? COLONOSCOPY ??? COLONOSCOPY 02/17/2013 Surgeon: Garett Holt MD; Location: [facility]; Service: ??? DENTAL SURGERY upper and lower teeth removed ??? UPPER GASTROINTESTINAL ENDOSCOPY ??? UPPER GASTROINTESTINAL ENDOSCOPY 02/17/2013 Surgeon: Garett Holt MD; Location: [facility]; Service: Social History Socioeconomic History ??? Marital status: Spouse name: None ??? Number of children: 2 ??? Years of education: None ??? Highest education level: None Occupational History ??? Occupation: disabled Tobacco Use ??? Smoking status: Former Smoker Packs/day: 1.50 Years: 12.00 Pack years: 18.00 Types: Cigarettes Start date: 01/24/1972 Last attempt to quit: 01/24/1984 Years since quittin.2 ??? Smokeless tobacco: Never Used Substance and Sexual Activity ??? Alcohol use: No Alcohol/week: 0.0 oz ??? Drug use: No ??? Sexual activity: Yes Partners: Male control/protection: Post-menopausal Family History Problem Relation Age of Onset ??? Heart Disease Father ??? Cataracts Father ??? Diabetes Father ??? Cancer Maternal Grandmother ??? Colon Cancer Maternal Grandmother ??? Anesth Problems Neg Hx Review of Systems: The listed systems were reviewed and reveal the following in addition to any already discussed in the HPI: ?? Constitutional: No fever, chills, or weight loss ?? Eyes: No visual disturbance ?? HENT: No headache, hearing loss, epistaxis, sore throat, or hoarseness ?? Lungs: No SOB, cough, hemoptysis, or pleuritic chest pain ?? Cardiovascular: No chest pain, PND or orthopnea ?? Endocrine: No polyuria, polydipsia, or polyphagia ?? GI: Per hpi ?? : No dysuria, frequency, hesitancy, or hematuria ?? Musculoskeletal: No myalgias or muscle weakness ?? Neurologic: No focal numbness or weakness ?? Skin: No edema, jaundice, or skin discoloration ?? Psychiatric: No depression, homicidal or suicidal ideation ?? Hematologic/Allergic: No history of blood clots, bleeding or easy bruising OBJECTIVE: Physical Exam: Patient Vitals for the past 24 hrs: BP Temp Temp src Pulse Resp SpO2 Height Weight 04/17/20 0827 109/47 97.8 ??F (36.6 ??C) Oral 62 18 95 % -- -- 08/09/20 2331 126/47 97.8 ??F (36.6 ??C) Oral 64 20 97 % 5' 4 (1.626 m) 243 lb (110.2 kg) Weight: 243 lb (110.2 kg) ?? General: NAD, obese ?? Head: Atraumatic, normocephalic ?? Eyes: PEERL, No purulent drainage, non-icteric sclera ?? ENT: Op clear, Nasal clear, MMM ?? Neck: Supple, No JVD ?? Lungs: CTA b/l, no wheeze, rales, or rhonchi ?? Cardiac: RRR, no MGR ?? Abdomen: + Bowel sounds, soft, non-tender ?? Musculoskeletal/Ext: Pulses 1-2+ bilaterally in upper and lower extremities. ?? Neurological: AAOx3, No focal deficits ?? Skin: Warm, no rashes, dry Labs: CBC: Lab Results Component Value Date WBC 9.5 04/17/2020 RBC 4.55 04/17/2020 HGB 12.2 04/17/2020 HCT 39.7 04/17/2020 MCV 87.3 04/17/2020 MCHC 30.7 04/17/2020 RDW 15.1 (H) 04/17/2020 MPV 9.5 04/17/2020 BMP: Lab Results Component Value Date NA 139 04/17/2020 K 4.1 04/17/2020 CL 99 04/17/2020 CO2 26 04/17/2020 BUN 10 04/17/2020 CREATININE 0.73 04/17/2020 CALCIUM 10.0 04/17/2020 GFRAFRAM 101 04/17/2020 GFRNONAFRAM 88 04/17/2020 GLU 102 (H) 04/17/2020 Hepatic: No results found for: ALKPHOS, ALT, AST, PROT, LABBILI, BILIDIR, IBILI, LABALBU No results found for: AMYLASE, LIPASE U/A:No results found for: SPECGRAV, UAPROTEIN, BLOODU, NITRITE, LEUKOCYTESUR, WBCUA, RBCUA Coagulation: No results found for: INR, APTT Cardiac markers: No results found for: CKMB, MYOGLOBIN ABGs:No results found for: PH, PCO2, PO2, HCO3, TCO2, BASEEXCESS, O2SAT, INSPIREDO2, SPECIMENTYPE Radiology: Ct Abd Pel Ed Fast W Contrast Result Date: 04/16/2020 CT ABDOMEN AND PELVIS WITH CONTRAST (FAST), 04/16/2020 5:40 PM CLINICAL HISTORY: - hernia, abdominal pain COMPARISON: 04/02/2014 PROCEDURE COMMENTS: Multi-detector volumetric scanning of the abdomen and pelvis with multiplanar reformatting per expedited protocol. 100 mL Isovue 370 IV. Automated exposure control for dose reduction was used. CTDIvol: 25.3 mGy. DLP: 1241 mGy-cm. FINDINGS: LOWER CHEST: Mild lingular atelectasis. ABDOMEN & PELVIS: Prior cholecystectomy. Liver, spleen, pancreas, and adrenal glands are unremarkable. Kidneys enhance symmetrically with no hydronephrosis or suspicious lesion. Bladder is unremarkable. Large multilobulated fat-containing hernia of the left anterior abdominal wall with associated inflammation of the saphenous fat. No fluid collection within the herniasac. There are 2 separate abdominal wall defects each demonstrating a relatively narrow neck of approximately 2 cm. The hernia sac measures up to 13 cm in transverse dimension and 12 cm in craniocaudal dimension. There is mild mesenteric inflammation and perienteric inflammatory change of an adjacent loop of small bowel, although the bowel does not extend into the hernia and there is no evidence for bowel obstruction. No lymphadenopathy. Mild atherosclerotic calcifications. No acute osseous abno rmality. Large multilobulated fat-containing left ventral hernia with associated inflammatory change change of the subcutaneous fat. Perienteric and mesenteric inflammatory change of the adjacent small bowel is likely reactive. The small bowel does not extend into the hernia sac and there is no evidence forbowel obstruction. - Results for orders placed during the hospital encounter of 03/13/17 EK EKG 12 LEAD Impression Stationary ECG Study [facility] Interpretive Statements SINUS RHYTHM LOW QRS VOLTAGE IN PRECORDIAL LEADS Electronically Signed On 03-13-2017 22:56:47 EDT by Huey Mendoza MD Assessment/Plan: Active Hospital Problems Obesity, Class III, BMI 40-49.9 (morbid obesity) ([facility]) -encourage weight loss Type 2 diabetes mellitus without complication (HCC) -ssi, follow bg and keep 140-180 while here *Ventral hernia -surgery following -dvt ppx, gi ppx while npo Temporal arteritis (HCC) PMR (polymyalgia rheumatica) ([facility]) -followed years ago by rheum -biopsy negative but clinically suspected by rheum -pt on no tx now > 70 minutes spent on admitting patient, including time spent on HPI, PMHX, Soc Hx, Medications review and Fam Hx. Evaluation and treatment including but not limited to reviewing the medication list, nurse's and specialists notes, labs and tests, old and recent medical records, and discussing appropriate information with the patient and/or family. >50% of the time spent was face to face time with the patient. Relevant information was discovered and affected the care of the patient today. DO EVERETTE Heard Hospitalist 04/17/2020 1:07 PM documented in this encounter Procedure Notes * Regan Butts MD - 04/18/2020 11:31 PM EDT [facility] ?? OPERATIVE/PROCEDURE NOTE ?? Alyssa Campos April 18, 2020 ?? Body mass index is 41.71 kg/m??. ? PRE-OP DIAGNOSIS: Incarcerated Incisional Hernia, Morbid Obesity ?? POST-OP DIAGNOSIS: Incarcerated Incisional Hernia, Morbid Obesity ?? PROCEDURE(S): Procedure(s): DAVINCI ROBOTIC INCISIONAL HERNIA REPAIR WITH MESH 20x[address] echo ?? SURGEON(S): Surgeon(s) and Role: * Regan Butts MD - Primary ?? ANESTHESIA: General ?? SPECIMENS: * No specimens in log * ?? ESTIMATED BLOOD LOSS (mls): 34 mL ?? FINDINGS: Two adjacent defects with large amount of omentum contained. Small bowel with no acute findings of ischemia DETAILS OF PROCEDURE After informed consent was obtained, the patient was identified in the preoperative holding area and then brought to the OR and laid in a supine position on the operating room table. General anesthesia was obtained. The patient's abdomen was prepped and draped in the standard surgical fashion, using chlorhexidine, sterile towels, and sterile drapes. A time out was preformed confirming the patient's name, date of and procedure being preformed. I began with an incision at the left subcostal margin. I then inserted a Veress needle and insufflated the abdomen with CO2 gas. Once sufficient pneumoperitoneum was achieved, I exchanged the Veress needle with an 8 mm trocar followed by the camera. Once inside the abdomen, I inspected the site immediately below the Veress needle site. There was no injury. I then inserted three more 8 mm ports under direct visualization. These were oriented in alinear fashion along the left lateral abdomen. I infiltrated all the port sites with 0.5% marcaine with epinephrine prior to any incisions being made. We then positioned the robot bedside and docked. Using two graspers I began to reduce the hernia contents which contained primarily omentum. Once complete I was left with two midline 4 cm circular defects by a 2 cm fascial bridge. I decreased the pressure of the pneumoperitoneum to 8 mmHg to facilitate primarily fascial closure. I closed the defect with a running #1 PDS symmetric suture closing both defects. I then selected a 15 cm x [address] with Echo deployment device to cover the defect. This was inserted through the left uppermost trocar which was upsized to a 12 mm trocar. A suture passer inserted at the middle ofthe hernia closure was used to grab the string associated with the echo device and pull the mesh into position on the anterior abdominal wall. I then sutured the mesh circumferentially to the abdominal wall using 2-0 stratafix spiral suture. The echo deployment system was then removed from the meshand then taken out of the abdomen through the 12 mm trocar. I then ran the small bowel to investigate the CT findings of mesenteric stranding and ensure there was no ischemia. I found a segment of bowel that appeared indurated with minimal inflammation, no evidence of ischemia. All other small bowel was normal. I then inspected the abdomen, making sure I obtained hemostasis. The fascia of the 12 mm port was closed with an 0 Vicryl suture using a laparoscopic suture passer. The pneumoperitoneum was evacuatedand the ports were removed. The ports were closed with 4-0 Vicryl and sterile surgical glue over the skin for a dressing. The patient's Morbid Obesity, with BMI of 41 did contributed to the difficulty of the case. I estimate it added an additional 30 minutes to the case time. At the end of the procedure, all sponge, needle and instrument counts were correct. I was present for the entire procedure from start to finish. ?? Regan Butts MD Date: 04/18/2020 ?? * Regan Butts MD - 04/18/2020 9:25 PM EDT [facility] OPERATIVE/PROCEDURE NOTE Alyssa Campos April 18, 2020 Body mass index is 41.71 kg/m??. PRE-OP DIAGNOSIS: Ventral hernia with obstruction and without gangrene [K43.6] POST-OP DIAGNOSIS: Ventral hernia with obstruction and without gangrene [K43.6] PROCEDURE(S): Procedure(s): DAVINCI ROBOTIC VENTRAL HERNIA REPAIR WITH MESH 15x[address] [place] SURGEON(S): Surgeon(s) and Role: * Regan Butts MD - Primary ANESTHESIA: General SPECIMENS: * No specimens in log * ESTIMATED BLOOD LOSS (mls): 34 mL FINDINGS: Two adjacent defects with large amount of omentum contained. Small bowel with no acute findings of ischemia Regan Butts MD Date: 04/18/2020 documented in this encounter Consult Notes * Kamila Coughlin, 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 - 04/17/2020 8:41 AM EDTAssociated Order(s): IP CONSULT TO GENERAL SURGERY EMERGENCY GENERAL SURGERY CONSULT CONSULTING PHYSICIAN: Regan Butts M.D. ASSESSMENT AND PLAN Alyssa Campos is a 64 y.o. year old female who I am asked to see for CC of abdominal pain. Dx with ventral hernia, leukocytosis, hx of ovarian CA s/p resection, obesity, T2DM, HTN CT images personally reviewed: No bowel in the hernia sack, but there are some inflammatory changesaround a loop of SB that was likely reduced from the hernia On exam, no evidence of peritonitis Will plan for surgery tomorrow morning in the form of robotic ventral hernia repair with mesh, possible open, possible bowel resection IVF Noted leukocytosis on presentation. Trend labs She has a clotting disorder on her history, but she doesn't have more information on this. Doesn't take any AC. Serial abd exams NPO with meds and ice chips HISTORY OF PRESENT ILLNESS Alyssa Campos is a 64 y.o. year old female who presents with a complaint of pain located in the abdomen. She reports that she has had a hernia for about 5-6 years. Hernia started hurting about 6 months ago. Over the past 3 weeks this has progressively worsened. Gotten to 9/10, sharp, mid abd, radiates to the sides. Over the past 3 days she's been vomiting which reduces the pain somewhat. Hernia was manually reduced in the ED which improved the pain a bit. Denies fevers, chills, hematemesis, blood in stools, dysuria. She does have a hx of ovarian CA which she was treated for surgically in 2018. She isn't sure if she needed chemo. HISTORY Past Medical History: Diagnosis Date ??? Anemia [...] BIOPSY ; Surgeon: Christa Chavez MD; Location: [facility] MAIN OR; Service: General ??? CARDIAC CATHETERIZATION 04/2015 ??? CHOLECYSTECTOMY 1989 ??? COLONOSCOPY ??? COLONOSCOPY 02/17/2013 Surgeon: Garett Holt MD; Location: [facility]; Service: ??? DENTAL SURGERY upper and lower teeth removed ??? UPPER GASTROINTESTINAL ENDOSCOPY ??? UPPER GASTROINTESTINAL ENDOSCOPY 02/17/2013 Surgeon: Garett Holt MD; Location: [facility]; Service: Allergies Allergen Reactions ??? Amitriptyline Nausea And Vomiting ??? Amoxil [Amoxicillin] Hives ??? Clarithromycin hives ??? Clindamycin Nausea Only ??? Egg Nausea Only ??? Naproxen Rash ??? Nexium [Esomeprazole Magnesium] Hives and Rash Blisters in Mouth Social History Socioeconomic History ??? Marital status: [...] years: 18.00 Types: Cigarettes Start date: 01/24/1972 Last attempt to quit: 01/24/1984 Years since quittin.2 ??? Smokeless tobacco: Never Used Substance and [...] file Gets together: Not on file Attends hindu service: Not on file Active member of [...] Social History Narrative ??? Not on file Family History Problem Relation Age of Onset ??? Heart Disease Father ??? Cataracts Father ??? Diabetes Father ??? Cancer Maternal Grandmother ??? Colon Cancer Maternal Grandmother ??? Anesth Problems Neg Hx REVIEW OF SYSTEMS Constitutional: Negative for fever, chills, HENT: Negative for congestion, sore throat Eyes: Negative for pain, redness Respiratory: Negative for cough, chest tightness, shortness of breath Cardiovascular: Negative for chest pain, palpitations Gastrointestinal: see HPI Genitourinary: Negative for dysuria, urgency, frequency Musculoskeletal: Negative for back pain, arthralgias Skin: Negative for rash and wound. Neurological: Negative for dizziness, weakness Hematological: Negative for bruise/bleed easily. Psychiatric/Behavioral: Negative for hallucinations, confusion PHYSICAL EXAMINATION Vitals: 04/16/20 2331 04/17/20 0827 BP: 126/47 109/47 BP Location: Left arm Left arm Patient Position: Semi Fowlers Semi Fowlers Pulse: 64 62 Resp: 20 18 Temp: 97.8 ??F (36.6 ??C) 97.8 ??F (36.6 ??C) TempSrc: Oral Oral SpO2: 97% 95% Weight: 243 lb (110.2 kg) Height: 5' 4 (1.626 m) Constitutional: Oriented to person, place, time. Vital signs are above. Obese. Ill appearing. Active and cooperative. Non-toxic. No distress. Head: Normocephalic and atraumatic. Ears: Right Ear: External ear normal. Left Ear: External ear normal. Nose: nares patent Mouth/Throat: Oropharynx clear and moist. No oropharyngeal exudate Eyes: Conjunctivae and EOM grossly normal. Pupils equal and round. Right eye no discharge. Left eyeno discharge. No scleral icterus. Neck: Trachea normal. Neck supple. No tracheal deviation. No mass Cardiovascular: Normal rate Pulmonary/Chest: Effort normal. No accessory muscle usage or stridor. No distress. No chest wall tenderness. Abdominal: Soft. No distension. No mass. Diffuse tenderness. No rebound. No guarding. No CVA tenderness. Ventral hernia which I cannot fully reduce. Musculoskeletal: Normal range of motion. No edema. No tenderness. Neurological: Alert and oriented to person, place, time. No cranial nerve deficit, normal tone. Coordination normal. Skin: Skin warm and dry. No abrasion, no rash noted, not diaphoretic. No cyanosis or erythema. No pallor. Nails show no clubbing. Psychiatric: Normal mood and affect. Speech normal and behavior is normal. LABS AND RADIOLOGY *I reviewed the following labs and studies. I personally viewed the pertinent images WBC: No results found for: WBC Hemoglobin/Hematocrit: No results found for: HGB, HCT BMP: No results found for: NA, K, CL, CO2, BUN, LABALBU, CREATININE, CALCIUM, GFRAA, LABGLOM PT/INR: No results found for: PROTIME, INR PTT: No results found for: APTT[APTT Ct Abd Pel Ed Fast W Contrast Result Date: 04/16/2020 CT ABDOMEN AND PELVIS WITH CONTRAST (FAST), 04/16/2020 5:40 PM CLINICAL HISTORY: - hernia, abdominal pain COMPARISON: 04/02/2014 PROCEDURE COMMENTS: Multi-detector volumetric scanning of the abdomen and pelvis with multiplanar reformatting per expedited protocol. 100 mL Isovue 370 IV. Automated exposure control for dose reduction was used. CTDIvol: 25.3 mGy. DLP: 1241 mGy-cm. FINDINGS: LOWER CHEST: Mild lingular atelectasis. ABDOMEN & PELVIS: Prior cholecystectomy. Liver, spleen, pancreas, and adrenal glands are unremarkable. Kidneys enhance symmetrically with no hydronephrosis or suspicious lesion. Bladder is unremarkable. Large multilobulated fat-containing hernia of the left anterior abdominal wall with associated inflammation of the saphenous fat. No fluid collection within the herniasac. There are 2 separate abdominal wall defects each demonstrating a relatively narrow neck of approximately 2 cm. The hernia sac measures up to 13 cm in transverse dimension and 12 cm in craniocaudal dimension. There is mild mesenteric inflammation and perienteric inflammatory change of an adjacent loop of small bowel, although the bowel does not extend into the hernia and there is no evidence for bowel obstruction. No lymphadenopathy. Mild atherosclerotic calcifications. No acute osseous abno rmality. Large multilobulated fat-containing left ventral hernia with associated inflammatory change change of the subcutaneous fat. Perienteric and mesenteric inflammatory change of the adjacent small bowel is likely reactive. The small bowel does not extend into the hernia sac and there is no evidence forbowel obstruction. - Kamila Coughlin APRN 04/17/2020 Cosigned by Regan Butts MD at 05/04/2020 8:35 PM EDT Associated attestation - Regan Butts MD - 05/04/2020 8:35 PM EDT I have not seen the patient personally but did review the case with the 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. I agree with their assessment and plan. Regan Butts MD documented in this encounter Miscellaneous Notes * Plan of Care - Christiana Taylor RN - 04/28/2020 3:04 PM EDT VSS, afebrile. C/o pain, PRN oxycodone. Tolerating diet. +BM. Up x 1 assist with walker. Up to chair this shift. Turned q2. Bed/chair alarm on for safety. Call light within reach. * Utilization Review Notes - Anel Zuinga RN - 04/28/2020 11:29 AM EDT UR note ??Cont stay review inpt order med surg s/p 04/18 DAVINCI ROBOTIC VENTRAL HERNIA REPAIR WITH MESH??ileus bp 87/56 S/p??Ventral hernia??repair ?Ileus ?Temporal arteritis ?PMR (polymyalgia rheumatica) -??Followed years ago by rheum ??Type 2 diabetes mellitus without complication - FSBS with SSI Discharge plan pending medical stability current plan rehab denied per insurance waiting appeal * Plan of Care - Sarai Johns, PT - 04/28/2020 10:37 AM EDT Problem: Ambulation Goal: Patient will ambulate safely Outcome: Progressing * Plan of Care - Nikkie Montenegro RN - 04/27/2020 8:58 PM EDT Problem: Safety: Fall Risk Goal: Patient will remain free of falls and injury Outcome: Progressing Note: Call light within reach bed alarm on and working Problem: Psycho/Social/Spiritual Goal: Patient will identify sources of support and strength Outcome: Progressing Problem: Prevention: Skin Integrity - 76 Description: For Stage 1 Pressure Ulcer or a Erickson Scale Score of 18 or less Goal: Skin remains intact Outcome: Progressing Note: Patient is being reposition every 2 hours to maintain skin integrity * Plan of Care - Ana Temple RN - 04/27/2020 6:52 PM EDT VSS, afebrile. Tolerating pain. Tolerating diet. Up x1 to bathroom. Ambulated x2 in halls, offered a third time, pt refused. Will continue to monitor. Ana Temple RN 6:53 PM * Plan of Care - Angela Cabrera RN - 04/27/2020 1:52 PM EDT Problem: Individualized Patient Preference/Goals - (ALWAYS ADD TO CARE PLANS) Description: (always add to care plan) Goal: What is most important for you today? ANSWER DAILY Description: This goal needs to be ANSWER DAILY - DO NOT COMPLETE 04/27/2020 1352 by Angela Cabrera RN Outcome: Progressing 04/27/2020 1351 by Angela Cabrera RN Outcome: Progressing To get home Problem: Safety: Fall Risk Goal: Patient will remain free of falls and injury 04/27/2020 1352 by Angela Cabrera RN Outcome: Progressing 04/27/2020 1351 by Angela Cabrera RN Outcome: Progressing Bed alarm in place. All personal items within reach. Call light within reach Problem: Pain Management Goal: The patient's stated pain goal will be reached and maintained. Description: The patient's stated pain goal will be reached and maintained 04/27/2020 1352 by Angela Cabrera RN Outcome: Progressing 04/27/2020 1351 by Angela Cabrera RN Outcome: Progressing Pt c/o pain administered medication as ordered with good results. Problem: Knowledge Deficit Related to Disease Process/Treatment Description: Goal: Patient/family will be knowledgeable of disease process and treatment 04/27/2020 1352 by Angela Cabrera RN Outcome: Progressing 04/27/2020 1351 by Angela Cabrera RN Outcome: Progressing Educated on usage dosage and side effects Problem: Psycho/Social/Spiritual Goal: Patient will identify sources of support and strength 04/27/2020 1352 by Angela Cabrera RN Outcome: Progressing 04/27/2020 1351 by Angela Cabrera RN Outcome: Progressing Problem: Prevention: Skin Integrity - 76 Description: For Stage 1 Pressure Ulcer or a Erickson Scale Score of 18 or less Goal: Skin remains intact 04/27/2020 1352 by Angela Cabrera RN Outcome: Progressing 04/27/2020 1351 by Angela Cabrera RN Outcome: Progressing Wound care protocol Problem: Patient experience side effects from opiate medication Goal: Symptom management of side effects 04/27/2020 1352 by Angela Cabrera RN Outcome: Progressing Pt offers no c/o. * Plan of Care - Felipa Kraus RN - 04/27/2020 2:25 AM EDT Pt calm and cooperative this shift Up to bathroom x1 with walker and gaitbelt No changes to report Problem: Safety: Fall Risk Goal: Patient will remain free of falls and injury Outcome: Progressing Note: Bed alarm on. Bed in lowest position and locked. Slip resistant socks in place. Encouraged ptto call for assistance with ambulation. Walker and gait belt available for ambulation. Pt belongings and call light within reach. Walkways clear. Problem: Pain Management Goal: The patient's stated pain goal will be reached and maintained. Description: The patient's stated pain goal will be reached and maintained Outcome: Progressing Note: Shelley PRN Problem: Prevention: Skin Integrity - 76 Description: For Stage 1 Pressure Ulcer or a Erickson Scale Score of 18 or less Goal: Skin remains intact Outcome: Progressing Note: Turn q2h. Micotine powder applied to areas at risk for moisture breakdown * Plan of Care - Gabriela Carranza RN - 2020 4:09 PM EDT Problem: Individualized Patient Preference/Goals - (ALWAYS ADD TO CARE PLANS) Description: (always add to care plan) Goal: What are your personal goals for this hospitalization? Description: Ask the patient what their personal goal is for this hospitalization. Example: I want to be able to play with my grandkids, gardening, get back to work, etc Outcome: Progressing Goal: What personal preferences should we be aware of to make your stay more comfortable? Description: Ask the patient for some personal preferences. Examples: I use two pillows to sleep atnight, I take my meds with applesauce, I do not like cheese, I don't want a male nurse Outcome: Progressing Goal: What is your greatest fear or concern around this hospitalization? Description: This question is geared toward patient experience to reduce anxiety. Outcome: Progressing Goal: Tell me about yourself (i.e. hobbies, interests, pets, etc) Outcome: Progressing Goal: What is most important for you today? ANSWER DAILY Description: This goal needs to be ANSWER DAILY - DO NOT COMPLETE Outcome: Progressing Goal: Care Team Goal Description: Document what the Care Team goal is to help the patient meet their What's Most Important For You Today? DAILY goal This goal needs to be ANSWER DAILY - DO NOT COMPLETE Outcome: Progressing * Plan of Care - Angela Cabrera RN - 2020 10:42 AM EDT Problem: Individualized Patient Preference/Goals - (ALWAYS ADD TO CARE PLANS) Description: (always add to care plan) Goal: What is most important for you today? ANSWER DAILY Description: This goal needs to be ANSWER DAILY - DO NOT COMPLETE Outcome: Progressing Go to rehab Problem: Safety: Fall Risk Goal: Patient will remain free of falls and injury Outcome: Progressing Bed alarm in place. All personal items within reach. Call light within reach Problem: Pain Management Goal: The patient's stated pain goal will be reached and maintained. Description: The patient's stated pain goal will be reached and maintained Outcome: Progressing Pt c/o pain administered medication as ordered with good results. Problem: Knowledge Deficit Related to Disease Process/Treatment Description: Goal: Patient/family will be knowledgeable of disease process and treatment Outcome: Progressing Educated on usage dosage and side effects Problem: Psycho/Social/Spiritual Goal: Patient will identify sources of support and strength Outcome: Progressing * Plan of Care - Felipa Kraus RN - 2020 12:14 AM EDT This RN took over care of this pt at approximately 0000 No changes to report Pt sleeping well at this time Problem: Safety: Fall Risk Goal: Patient will remain free of falls and injury Outcome: Progressing Note: Bed alarm on. Bed in lowest position and locked. Slip resistant socks in place. Encouraged ptto call for assistance with ambulation. Walker and gait belt available for ambulation. Pt belongings and call light within reach. Walkways clear. Problem: Pain Management Goal: The patient's stated pain goal will be reached and maintained. Description: The patient's stated pain goal will be reached and maintained Outcome: Progressing Note: PRN oxy Problem: Prevention: Skin Integrity - 76 Description: For Stage 1 Pressure Ulcer or a Erickson Scale Score of 18 or less Goal: Skin remains intact Outcome: Progressing Note: Turn q2h * RT Oxygen Plan of Care Note - Jen Raines RC Printmaker - 04/25/2020 8:42 PM EDT Images from the original note were not included. April 25, 2020 Oxygen Therapy: Oxygen Liters/Percent: No order found Maintain Oxygen Sat greater than or equal to: >90 Other Saturation No order found O2 Device: Room Air SpO2: 93 % Will continue to wean oxygen as tolerated to maintain titration goal. JEN RAINES * RT Oxygen Plan of Care Note - Kamila Sood RRT - 04/25/2020 12:31 PM EDT Images from the original note were not included. April 25, 2020 Oxygen Therapy: Oxygen Liters/Percent: No order found Maintain Oxygen Sat greater than or equal to: >90 Other Saturation No order found O2 Device: Room Air SpO2: 94 % Will continue to wean oxygen as tolerated to maintain titration goal. Kamila Sood RRT * CDI Query - Heriberto Shirley DO - 04/25/2020 12:31 PM EDT To respond to this query follow the directions below: ??? Check appropriate box above and document as needed ??? Click Edit button located above ??? Click Sign located in lower right hand corner Alyssa Campos [facility] [phone] Dr. Shirley, The purpose of this query is to clarify the significance of clinical indicators noted in the record. Based on the following clinical data: ? ? Admitted 04/16/20 per H&P with Incarcerated Incisional Hernia and is s/p DAVINCI ROBOTIC INCISIONAL HERNIA REPAIR WITH MESH? Nutrition assessment indicates: Moderate protein-calorie malnutrition Malnutrition Indicators Per Nutrition Assessment 04/24/20: Weight Loss: >5% weight loss in 1 month Intake: < or = 50% energy intake compared to estimated energy needs for > 5 days Additional Clinical Indicators: BMI = 41.71 Treatment included: Ensure clear TID Please indicate or document any significant condition treated, monitored, or evaluated: ( x ) Mild Malnutrition ( ) Moderate Malnutrition ( ) Severe Malnutrition ( ) Malnutrition Unspecified ( ) Disagree with malnutrition diagnosis ( ) Unable to determine ( ) Other Diagnosis/ document: PLEASE ALSO DOCUMENT DIAGNOSIS IN NOTES AND/OR D/C SUMMARY This electronic query and response is a permanent part of the medical record. Please do not update the Problem List as your response. The problem list is dynamic and is not a permanent part of this date of service. An unanswered query is considered a non-response. Thank you for your assistance, Alyssa Martinez RN (For questions or assistance please contact Chris Dunn, [facility] Blogs Manager [phone]) To respond to this query follow the directions below: ??? Click Edit button located above ??? Check appropriate box above and document as needed ??? Click Sign located in lower right hand corner * Plan of Care - Concha Chairez RN - 04/25/2020 4:53 AM EDT Problem: Safety: Fall Risk Goal: Patient will remain free of falls and injury Outcome: Progressing Note: Mobility score 6, patient is wearing non-skid socks, bed alarm on, call light within reach. Problem: Pain Management Goal: The patient's stated pain goal will be reached and maintained. Description: The patient's stated pain goal will be reached and maintained Outcome: Progressing Note: Patient can receive oxy PRN for pain control. Problem: Prevention: Skin Integrity - 76 Description: For Stage 1 Pressure Ulcer or a Erickson Scale Score of 18 or less Goal: Skin remains intact Outcome: Progressing Note: Wound prevention protocol in place. Patient is a turn. * Utilization Review Notes - Anel Zuniga RN - 04/24/2020 1:04 PM EDT UR note Cont stay review inpt order med surg s/p 04/18 DAVINCI ROBOTIC VENTRAL HERNIA REPAIR WITH MESH??ileus o2 sat 90% on 1l o2 lovenox sq ssi ivf 50/hr roxicodone x 5 ng dcd started clear liquid diet Much improved since Friday Minimal NGT output. + flatus. Hungry Clamp trial- remove if output < 200. Ok for clears if passes NEEDS to mobilize out of bed. PT consult Discharge plan pending medical stability current plan rehab * Plan of Care - Katherine Aguilar, PT - 04/24/2020 9:59 AM EDT Problem: Ambulation Goal: Patient will ambulate safely Outcome: Progressing * RT Oxygen Plan of Care Note - Molly Barber, MARIS - 04/24/2020 9:33 AM EDT Images from the original note were not included. April 24, 2020 Oxygen Therapy: Oxygen Liters/Percent: No order found Maintain Oxygen Sat greater than or equal to: >90 Other Saturation No order found O2 Device: Nasal cannula O2 Flow Rate (L/min): 1 lpm SpO2: 90 %(85% with RA) Reason for titration: Change of Status Will continue to wean oxygen as tolerated to maintain titration goal. Molly Barber RRT * RT Oxygen Plan of Care Note - ALLISON PLATA - 04/23/2020 8:12 PM EDT Images from the original note were not included. April 23, 2020 Oxygen Therapy: Oxygen Liters/Percent: No order found Maintain Oxygen Sat greater than or equal to: >90 Other Saturation No order found O2 Device: Nasal cannula O2 Flow Rate (L/min): 1 lpm SpO2: 95 % Will continue to wean oxygen as tolerated to maintain titration goal. ALLISON PLATA * Plan of Care - Mimi Bruno RN - 04/23/2020 4:03 PM EDT VSS, Afebrile. Pt is up x1 with gait belt and walker, has been walking in room. She worked with PT this afternoon as well. Most of the morning she has complained of pain and just being uncomfortable.PRN pain med's were given as well as heat and cold compresses with relief. At 3:40 pm started clamptrial for NG. Will pull at 7 pm if output is less than 200 per Tana. Non skid socks and bed alarm on for safety. Call light and bedside table in reach. Will continue to monitor. * Plan of Care - Gabriela Carranza RN - 04/22/2020 4:11 PM EDT Problem: Individualized Patient Preference/Goals - (ALWAYS ADD TO CARE PLANS) Description: (always add to care plan) Goal: What are your personal goals for this hospitalization? Description: Ask the patient what their personal goal is for this hospitalization. Example: I want to be able to play with my grandkids, gardening, get back to work, etc Outcome: Progressing Goal: What personal preferences should we be aware of to make your stay more comfortable? Description: Ask the patient for some personal preferences. Examples: I use two pillows to sleep atnight, I take my meds with applesauce, I do not like cheese, I don't want a male nurse Outcome: Progressing Goal: What is your greatest fear or concern around this hospitalization? Description: This question is geared toward patient experience to reduce anxiety. Outcome: Progressing Goal: Tell me about yourself (i.e. hobbies, interests, pets, etc) Outcome: Progressing Goal: What is most important for you today? ANSWER DAILY Description: This goal needs to be ANSWER DAILY - DO NOT COMPLETE Outcome: Progressing Goal: Care Team Goal Description: Document what the Care Team goal is to help the patient meet their What's Most Important For You Today? DAILY goal This goal needs to be ANSWER DAILY - DO NOT COMPLETE Outcome: Progressing * RT Oxygen Plan of Care Note - Anel Hutchison RRT - 04/21/2020 9:24 PM EDT Images from the original note were not included. April 21, 2020 Oxygen Therapy: Oxygen Liters/Percent: No order found Maintain Oxygen Sat greater than or equal to: >90 Other Saturation No order found O2 Device: Nasal cannula O2 Flow Rate (L/min): 2 lpm SpO2: 95 % Will continue to wean oxygen as tolerated to maintain titration goal. Anel Hutchison RRT * Plan of Care - Jada Juarez RN - 04/21/2020 3:28 PM EDT Pt VSS and afebrile NG was placed to CLWS, pt stated her nausea better, sometimes has sharp abd pain, ab soft, slightlydistended, denies gas or any BM Up to bathroom and ambulated in room, up to chair Turning every 2 hours, call light within reach, bed alarm on, bed locked in lowest position Denies wanting anything for pain Tolerating a little bit of ice chips and hard candy Will continue to monitor * Plan of Care - Gabriela Carranza RN - 04/20/2020 3:30 PM EDT Problem: Individualized Patient Preference/Goals - (ALWAYS ADD TO CARE PLANS) Description: (always add to care plan) Goal: What are your personal goals for this hospitalization? Description: Ask the patient what their personal goal is for this hospitalization. Example: I want to be able to play with my grandkids, gardening, get back to work, etc Outcome: Progressing Goal: What personal preferences should we be aware of to make your stay more comfortable? Description: Ask the patient for some personal preferences. Examples: I use two pillows to sleep atnight, I take my meds with applesauce, I do not like cheese, I don't want a male nurse Outcome: Progressing Goal: What is your greatest fear or concern around this hospitalization? Description: This question is geared toward patient experience to reduce anxiety. Outcome: Progressing Goal: Tell me about yourself (i.e. hobbies, interests, pets, etc) Outcome: Progressing Goal: What is most important for you today? ANSWER DAILY Description: This goal needs to be ANSWER DAILY - DO NOT COMPLETE Outcome: Progressing Goal: Care Team Goal Description: Document what the Care Team goal is to help the patient meet their What's Most Important For You Today? DAILY goal This goal needs to be ANSWER DAILY - DO NOT COMPLETE Outcome: Progressing * Utilization Review Notes - Paula Oliva RN - 04/20/2020 11:41 AM EDT +INPT ORDER TO MED/SURG CONT STAY REVIEW ADMITTED FOR ABDOMINAL PAIN 04/18 S/P VENTRAL HERNIA REPAIR WITH MESH OXYGEN ON @ 1-12 LITERS IVF'S @ 100 CC/HR MORPHINE IV X 3 ZOFRAN IV X 2 PLAN TO START LOW FIBER DIET.. NAUSEATED SO REMAINS ON CLEAR LIQ TOLERATED WAITING FOR BOWEL FUNCTION RETURN CC TO FOLLOW FOR DISCHARGE * Plan of Care - Angela Cabrera RN - 04/19/2020 2:57 PM EDT Problem: Individualized Patient Preference/Goals - (ALWAYS ADD TO CARE PLANS) Description: (always add to care plan) Goal: What is most important for you today? ANSWER DAILY Description: This goal needs to be ANSWER DAILY - DO NOT COMPLETE Outcome: Progressing Feel better Problem: Safety: Fall Risk Goal: Patient will remain free of falls and injury Outcome: Progressing Bed alarm in place. All personal items within reach. Call light within reach Problem: Pain Management Goal: The patient's stated pain goal will be reached and maintained. Description: The patient's stated pain goal will be reached and maintained Outcome: Progressing Pt c/o pain administered medication as ordered with good results. Problem: Knowledge Deficit Related to Disease Process/Treatment Description: Goal: Patient/family will be knowledgeable of disease process and treatment Outcome: Progressing Educated on usage dosage and side effects Problem: Psycho/Social/Spiritual Goal: Patient will identify sources of support and strength Outcome: Progressing Problem: Assess for New Problems - (ALWAYS ADD TO CARE PLAN) Description: Assess patient for any new problem(s) to add to Care Plan. If no new problem(s) are identified, choose no new problem(s) added . If new problem(s) are identified, choose new problem added and document a note regarding the new problem(s). Add the template for the new problem(s) to the Care Plan. Goal: Patient's care plan will be individualized with added problems when problem is identified Description: Below is a list of the more common patient problems. The list is not all inclusive. When an additional problem is identified add to the Care Plan. To see entire list of additional problem options, search ADDITIONAL PROBLEMS [51] or search for individual problems such as RESTRAINTS [62]. To add an Additional Problem, go to APPLY TEMPLATE. Common problems: Altered bladder elimination [77] Altered bowel elimination [78] Altered mental status [80] Altered mobility [79] Altered skin integrity [86] Erickson scale <18 (prevention) [76] Diabetes newly diagnosed/uncontrolled or A1C >6 [75] Infection [93] Isolation [69] Nutrition imbalance [91] Restraints [94] Outcome: Progressing Problem: Prevention: Skin Integrity - 76 Description: For Stage 1 Pressure Ulcer or a Erickson Scale Score of 18 or less Goal: Skin remains intact Outcome: Progressing Wound care protocol Problem: Patient experience side effects from opiate medication Goal: Symptom management of side effects Outcome: Progressing Pt offers no c/o. * Plan of Care - Felipa Gee RN - 04/19/2020 7:09 AM EDT Problem: Pain Management Goal: The patient's stated pain goal will be reached and maintained. Description: The patient's stated pain goal will be reached and maintained Outcome: Progressing PRN morphine given for abd pain Problem: Prevention: Skin Integrity - 76 Description: For Stage 1 Pressure Ulcer or a Erickson Scale Score of 18 or less Goal: Skin remains intact Outcome: Progressing Patient repositioned q 2 hrs * Utilization Review Notes - Anel Zuniga RN - 04/19/2020 6:48 AM EDT UR note Cont stay review inpt order med surg s/p 04/18 DAVINCI ROBOTIC VENTRAL HERNIA REPAIR WITH MESH 15x[address] echo for Ventral hernia with obstruction and without gangrene FINDINGS: Two adjacent defects with large amount of omentum contained. mefoxin iv x 1 ssi ivf 100/hr ms iv x 3 zofran iv x 2 Clear liquid diet Discharge plan pending medical stability current plan home * Utilization Review Notes - Anel Zuniga RN - 04/18/2020 10:23 AM EDT UR note cont stay review inpt order med surg abd wall hernia Plan OR today DAVINCI ROBOTIC VENTRAL HERNIA REPAIR WITH MESH POSSIBLE BOWEL RESECTION POSSIBLE OPEN bp 74/46 88/45 ivf 125/hr ofirmev iv x 1 ms iv x 4 ?? Discharge plan pending medical stability current plan home * Plan of Care - Felipa Gee RN - 04/18/2020 7:44 AM EDT Problem: Pain Management Goal: The patient's stated pain goal will be reached and maintained. Description: The patient's stated pain goal will be reached and maintained Outcome: Progressing PRN ofirmev and morphine given for abd pain Problem: Prevention: Skin Integrity - 76 Description: For Stage 1 Pressure Ulcer or a Erickson Scale Score of 18 or less Goal: Skin remains intact Outcome: Progressing Patient repositioned q 2hrs * Plan of Care - Angela Cabrera RN - 04/17/2020 2:01 PM EDT Problem: Individualized Patient Preference/Goals - (ALWAYS ADD TO CARE PLANS) Description: (always add to care plan) Goal: What is most important for you today? ANSWER DAILY Description: This goal needs to be ANSWER DAILY - DO NOT COMPLETE Outcome: Progressing Feel better Problem: Safety: Fall Risk Goal: Patient will remain free of falls and injury Outcome: Progressing Bed alarm in place. All personal items within reach. Call light within reach Problem: Pain Management Goal: The patient's stated pain goal will be reached and maintained. Description: The patient's stated pain goal will be reached and maintained Outcome: Progressing Pt c/o pain administered medication as ordered with good results. Problem: Knowledge Deficit Related to Disease Process/Treatment Description: Goal: Patient/family will be knowledgeable of disease process and treatment Outcome: Progressing Educated on usage dosage and side effects Problem: Psycho/Social/Spiritual Goal: Patient will identify sources of support and strength Outcome: Progressing Problem: Assess for New Problems - (ALWAYS ADD TO CARE PLAN) Description: Assess patient for any new problem(s) to add to Care Plan. If no new problem(s) are identified, choose no new problem(s) added . If new problem(s) are identified, choose new problem added and document a note regarding the new problem(s). Add the template for the new problem(s) to the Care Plan. Goal: Patient's care plan will be individualized with added problems when problem is identified Description: Below is a list of the more common patient problems. The list is not all inclusive. When an additional problem is identified add to the Care Plan. To see entire list of additional problem options, search ADDITIONAL PROBLEMS [51] or search for individual problems such as RESTRAINTS [62]. To add an Additional Problem, go to APPLY TEMPLATE. Common problems: Altered bladder elimination [77] Altered bowel elimination [78] Altered mental status [80] Altered mobility [79] Altered skin integrity [86] Erickson scale <18 (prevention) [76] Diabetes newly diagnosed/uncontrolled or A1C >6 [75] Infection [93] Isolation [69] Nutrition imbalance [91] Restraints [94] Outcome: Progressing * Plan of Care - Adriane Webb MSW - 04/17/2020 11:32 AM EDT Problem: Disposition/Transition of Care Goal: Patient will have a plan for disposition or transition to next level of care Outcome: Completed Note: See SW/CC notes * Utilization Review Notes - Anel Zuniga, MATT - 04/17/2020 9:59 AM EDT UR note Admission review inpt order med surg abd wall hernia To ed with abd pain Ct Large multilobulated fat-containing left ventral hernia with associated inflammatory change change of the subcutaneous fat. Perienteric and mesenteric inflammatory change of the adjacent small bowel is likely reactive. The small bowel does not extend into the hernia sac and there is no evidence forbowel obstruction. Wbc 13.3 Ms iv x 1 zofran iv x 1 Abdominal wall hernia was felt to at least be partially reduced on initial exam. FINAL IMPRESSION 1. Abdominal wall hernia 2. Non-intractable vomiting with nausea inpt med surg Npo Ms iv x 1 ivf 125/hr Plan OR 04/[address] images personally reviewed: No bowel in the hernia sack, but there are some inflammatory changesaround a loop of SB that was likely reduced from the hernia On exam, no evidence of peritonitis Will plan for surgery tomorrow morning in the form of robotic ventral hernia repair with mesh, possible open, possible bowel resection IVF Noted leukocytosis on presentation. Trend labs She has a clotting disorder on her history, but she doesn't have more information on this. Doesn't take any AC. Serial abd exams Discharge plan pending medical stability current plan home ?? * Plan of Care - Wendi Ford RN - 04/17/2020 9:36 AM EDT COVID 19 preferred lab partner result from today is negative. Liz notified. * Plan of Care - Ayesha Barba RN - 04/17/2020 6:21 AM EDT Patient admitted to [address] [place] [address]. Vitals are stable.Afebrile. Denies pain since she has been on the unit. Up to the bathroom with assist of one. For possible surgery today. PCraigRN documented in this encounter Plan of Treatment Upcoming Encounters Date Type Department Care Team (Late st Contact Info) Description 07/29/2024 9:00 AM EST Appointment [facility] [address] [place] [address] Jomar Kim MD [address] [place] [address] documented as of this encounter Goals Goal Patient Goal Type Associated Problems Recent Progress Patient-Stated? Author Blood Pressure < 140/90 Blood Pressure 110/72(04/27 2:44 PM EDT) No Rachel Rogers, MULU BMI (Calculated) < 30 General 50.9( 024 2:44 PM EDT) No Rachel Rogers RMA Eat better, exercise, reach an ideal body weight General No [place], Ni, bark skinner Healing General On track(2018 9:18 AM EDT) [...] neuropathy weekly. ?? Refer to PCP and/or Epic Specialist, Vascular Specialist as indicated. ?? Monitor patient compliance with wound care, diabetes management and proper offloading. Stay Tobacco Free Lifestyle On track(2020 10:23 AM EDT) No Wendy Espinoza LPN HEMOGLOBIN A1C < 7.0 Result Component 5.6(11/09/19 3:04 PM EST) No Rachel Rogers RMA documented as of this encounter Procedures Procedure Name Priority Date/Time Associated Diagnosis Comments SCANNED RHYTHM STRIPS 05/01/2020 2:03 PM EDT GLUCOSE METER POC Routine 04/28/2020 11:36 AM EDT CBC Early AM 04/28/2020 8:05 AM EDT GLUCOSE METER POC Routine 04/28/2020 7:39 AM EDT GLUCOSE METER POC Routine 04/27/2020 9:13 PM EDT GLUCOSE METER POC Routine 04/27/2020 6:42 PM EDT GLUCOSE METER POC Routine 04/27/2020 12:46 PM EDT CBC Early AM 04/27/2020 10:12 AM EDT BASIC METABOLIC PANEL Timed 04/27/2020 10:12 AM EDT GLUCOSE METER POC Routine 04/27/2020 7:55 AM EDT GLUCOSE METER POC Routine 2020 10:06 PM EDT GLUCOSE METER POC Routine 2020 6:05 PM EDT GLUCOSE METER POC Routine 2020 11:32 AM EDT CBC Early AM 2020 6:29 AM EDT GLUCOSE METER POC Routine 2020 6:02 AM EDT GLUCOSE METER POC Routine 2020 12:01 AM EDT GLUCOSE METER POC Routine 04/25/2020 3:45 PM EDT CBC JORGE LUIS 04/25/2020 2:56 PM EDT GLUCOSE METER POC Routine 04/25/2020 12:09 PM EDT GLUCOSE METER POC Routine 04/25/2020 5:13 AM EDT GLUCOSE METER POC Routine 04/24/2020 11:16 PM EDT GLUCOSE METER POC Routine 04/24/2020 6:03 PM EDT GLUCOSE METER POC Routine 04/24/2020 11:04 AM EDT GLUCOSE METER POC Routine 04/24/2020 5:12 AM EDT GLUCOSE METER POC Routine 04/23/2020 11:04 PM EDT GLUCOSE METER POC Routine 04/23/2020 6:12 PM EDT CBC Routine 04/23/2020 4:17 PM EDT BASIC METABOLIC PANEL Routine 04/23/2020 4:17 PM EDT GLUCOSE METER POC Routine 04/23/2020 12:57 PM EDT GLUCOSE METER POC Routine 04/23/2020 5:38 AM EDT GLUCOSE METER POC Routine 04/22/2020 11:11 PM EDT GLUCOSE METER POC Routine 04/22/2020 5:36 PM EDT GLUCOSE METER POC Routine 04/22/2020 12:38 PM EDT GLUCOSE METER POC Routine 04/22/2020 7:52 AM EDT GLUCOSE METER POC Routine 04/21/2020 9:06 PM EDT GLUCOSE METER POC Routine 04/21/2020 5:00 PM EDT GLUCOSE METER POC Routine 04/21/2020 12:48 PM EDT CBC Routine 04/21/2020 9:37 AM EDT BASIC METABOLIC PANEL Routine 04/21/2020 9:37 AM EDT GLUCOSE METER POC Routine 04/21/2020 7:58 AM EDT XR CHEST PA OR AP STAT 04/21/2020 7:50 AM EDT XR ABDOMEN AP STAT 04/21/2020 4:07 AM EDT UA W/REFLEX TO CULTURE Routine 04/21/2020 12:24 AM EDT EXTRA LAND URINE CX Routine 04/21/2020 12:24 AM EDT URINALYSIS Routine 04/21/2020 12:24 AM EDT GLUCOSE METER POC Routine 04/20/2020 9:13 PM EDT GLUCOSE METER POC Routine 04/20/2020 5:17 PM EDT GLUCOSE METER POC Routine 04/20/2020 12:48 PM EDT GLUCOSE METER POC Routine 04/20/2020 8:11 AM EDT CBC Early AM 04/20/2020 6:59 AM EDT BASIC METABOLIC PANEL Early AM 04/20/2020 6:57 AM EDT GLUCOSE METER POC Routine 04/19/2020 10:19 PM EDT GLUCOSE METER POC Routine 04/19/2020 5:26 PM EDT GLUCOSE METER POC Routine 04/19/2020 12:15 PM EDT CBC Early AM 04/19/2020 6:15 AM EDT BASIC METABOLIC PANEL Early AM 04/19/2020 6:15 AM EDT GLUCOSE METER POC Routine 04/19/2020 6:08 AM EDT GLUCOSE METER POC Routine 04/18/2020 11:41 PM EDT GLUCOSE METER POC Routine 04/18/2020 9:46 PM EDT DAVINCI ROBOTIC VENTRAL/INCISIO NAL HERNIA REPAIR 04/18/2020 6:09 PM EDT Ventral hernia with obstruction and without gangrene Special Needs KAMILA GLUCOSE METER POC Routine 04/18/2020 4:47 PM EDT GLUCOSE METER POC Routine 04/18/2020 12:08 PM EDT GLUCOSE METER POC Routine 04/18/2020 10:07 AM EDT BB HISTORY CHECK STAT 04/18/2020 8:20 AM EDT Preop testing Essential hypertension Ventral hernia without obstruction or gangrene ABORH STAT 04/18/2020 8:20 AM EDT Preop testing Essential hypertension Ventral hernia without obstruction or gangrene ANTIBODY SCREEN IGG STAT 04/18/2020 8:20 AM EDT Preop testing Essential hypertension Ventral hernia without obstruction or gangrene TYPE AND SCREEN STAT 04/18/2020 8:20 AM EDT Preop testing Essential hypertension Ventral hernia without obstruction or gangrene EK EKG 12 LEAD STAT 04/18/2020 8:03 AM EDT Preop testing Essential hypertension Ventral hernia without obstruction or gangrene CBC Early AM 04/18/2020 7:01 AM EDT BASIC METABOLIC PANEL Early AM 04/18/2020 7:01 AM EDT GLUCOSE METER POC Routine 04/18/2020 5:30 AM EDT GLUCOSE METER POC Routine 04/17/2020 11:43 PM EDT GLUCOSE METER POC Routine 04/17/2020 6:29 PM EDT GLUCOSE METER POC Routine 04/17/2020 1:59 PM EDT CBC Routine 04/17/2020 9:48 AM EDT BASIC METABOLIC PANEL Routine 04/17/2020 9:48 AM EDT IP CONSULT TO GENERAL SURGERY Routine 04/16/2020 11:27 PM EDT Procedure Note - Kamila Coughlin APRN - 04/17/2020 8:41 AM EDTThis note is in progress. EMERGENCY GENERAL SURGERY CONSULT CONSULTING PHYSICIAN: Regan Butts M.D. ASSESSMENT AND PLAN Alyssa Campos is a 64 y.o. year old female who I am asked to see for CC ofabdominal pain. Dx with ventral hernia, leukocytosis, hx of ovarian Ganga/p resection, obesity, T2DM, HTN CT images personally reviewed: No bowel in the hernia sack, but there aresome inflammatory changes around a loop of SB that was likely reduced fromthe hernia On exam, no evidence of peritonitis Will plan for surgery tomorrow morning in the form of robotic ventralhernia repair with mesh, possible open, possible bowel resection IVF Noted leukocytosis on presentation. Trend labs She has a clotting disorder on her history, but she doesn't have moreinformation on this. Doesn't take any AC. Serial abd exams NPO with meds and ice chips HISTORY OF PRESENT ILLNESS Alyssa Campos is a 64 y.o. year old female who presents with a complaintof pain located in the abdomen. She reports that she has had a hernia forabout 5-6 years. Hernia started hurting about 6 months ago. Over thepast 3 weeks this has progressively worsened. Gotten to 9/10, sharp, midabd, radiates to the sides. Over the past 3 days she's been vomitingwhich reduces the pain somewhat. Hernia was manually reduced in the EDwhich improved the pain a bit. Denies fevers, chills, hematemesis, bloodin stools, dysuria. She does have a hx of ovarian CA which she wastreated for surgically in 2018. She isn't sure if she needed chemo. HISTORY Past Medical History: Diagnosis Date ? ? Anemia on iron ? ? Ankle swelling ? ? Arthritis all over ? ? Asthma ? ? Cancer (HCC) OVARIAN ? ? Clotting disorder (HCC) ? ? Diabetes mellitus (HCC) 2013 borderline, type 2 ? ? Fibromyalgia ? ? Heartburn nausea after eating ? ? Hiatal hernia ? ? Hyperlipidemia ? ? Hypertension ? ? 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 ? Other and unspecified angina pectoris ? ? Shortness of breath ? ? Sleep apnea SHOULD WEAR CPAP OR BIPAP PER PATIENT ? ? Ulcer Past Surgical History: Procedure Laterality Date ? ? ARTERY BIOPSY Right 01/06/2017 RIGHT TEMPORAL ARTERY BIOPSY ; Surgeon: Christa Chavez MD; Location: [facility]; Service: General ? ? CARDIAC CATHETERIZATION 04/2015 ? ? CHOLECYSTECTOMY 1989 ? ? COLONOSCOPY ? ? COLONOSCOPY 02/17/2013 Surgeon: Garett Holt MD; Location: [facility]; Service: ? ? DENTAL SURGERY upper and lower teeth removed ? ? UPPER GASTROINTESTINAL ENDOSCOPY ? ? UPPER GASTROINTESTINAL ENDOSCOPY 02/17/2013 Surgeon: Garett Holt MD; Location: [facility]; Service: Allergies Allergen Reactions ? ? Amitriptyline Nausea And Vomiting ? ? Amoxil [Amoxicillin] Hives ? ? Clarithromycin hives ? ? Clindamycin Nausea Only ? ? Egg Nausea Only ? ? Naproxen Rash ? ? Nexium [Esomeprazole Magnesium] Hives and Rash Blisters in Mouth Social History Socioeconomic History ? ? Marital status: Spouse name: Not on file ? ? Number of children: 2 ? ? Years of education: Not on file ? ? Highest education level: Not on file Occupational History ? ? Occupation: disabled Social Needs ? ? Financial resource strain: Not on file ? ? Food insecurity Worry: Not on file Inability: Not on file ? ? Transportation needs Medical: Not on file Non-medical: Not on file Tobacco Use ? ? Smoking status: Former Smoker Packs/day: 1.50 Years: 12.00 Pack years: 18.00 Types: Cigarettes Start date: 01/24/1972 Last attempt to quit: 01/24/1984 Years since quittin.2 ? ? Smokeless tobacco: Never Used Substance and Sexual Activity ? ? Alcohol use: No Alcohol/week: 0.0 oz ? ? Drug use: No ? ? Sexual activity: Yes Partners: Male control/protection: Post-menopausal Lifestyle ? ? Physical activity Days per week: Not on file Minutes per session: Not on file ? ? Stress: Not on file Relationships ? ? Social connections Talks on phone: Not on file Gets together: Not on file Attends hindu service: Not on file Active member of club or organization: Not on file Attends meetings of clubs or organizations: Not on file Relationship status: Not on file ? ? Intimate partner violence Fear of current or ex partner: Not on file Emotionally abused: Not on file Physically abused: Not on file Forced sexual activity: Not on file Other Topics Concern ? ? Not on file Social History Narrative ? ? Not on file Family History Problem Relation Age of Onset ? ? Heart Disease Father ? ? Cataracts Father ? ? Diabetes Father ? ? Cancer Maternal Grandmother ? ? Colon Cancer Maternal Grandmother ? ? Anesth Problems Neg Hx REVIEW OF SYSTEMS Constitutional: Negative for fever, chills, HENT: Negative for congestion, sore throat Eyes: Negative for pain, redness Respiratory: Negative for cough, chest tightness, shortness of breath Cardiovascular: Negative for chest pain, palpitations Gastrointestinal: see HPI Genitourinary: Negative for dysuria, urgency, frequency Musculoskeletal: Negative for back pain, arthralgias Skin: Negative for rash and wound. Neurological: Negative for dizziness, weakness Hematological: Negative for bruise/bleed easily. Psychiatric/Behavioral: Negative for hallucinations, confusion PHYSICAL EXAMINATION Vitals: 04/16/20 2331 04/17/20 0827 BP: 126/47 109/47 BP Location: Left arm Left arm Patient Position: Semi Fowlers Semi Fowlers Pulse: 64 62 Resp: 20 18 Temp: 97.8 ??F (36.6 ??C) 97.8 ??F (36.6 ??C) TempSrc: Oral Oral SpO2: 97% 95% Weight: 243 lb (110.2 kg) Height: 5' 4 (1.626 m) Constitutional: Oriented to person, place, time. Vital signs are above.Obese. Ill appearing. Active and cooperative. Non-toxic. No distress. Head: Normocephalic and atraumatic. Ears: Right Ear: External ear normal. Left Ear: External ear normal. Nose: nares patent Mouth/Throat: Oropharynx clear and moist. No oropharyngeal exudate Eyes: Conjunctivae and EOM grossly normal. Pupils equal and round. Righteye no discharge. Left eye no discharge. No scleral icterus. Neck: Trachea normal. Neck supple. No tracheal deviation. No mass Cardiovascular: Normal rate Pulmonary/Chest: Effort normal. No accessory muscle usage or stridor. Nodistress. No chest wall tenderness. Abdominal: Soft. No distension. No mass. Diffuse tenderness. No rebound.No guarding. No CVA tenderness. Ventral hernia which I cannot fullyreduce. Musculoskeletal: Normal range of motion. No edema. No tenderness. Neurological: Alert and oriented to person, place, time. No cranial nervedeficit, normal tone. Coordination normal. Skin: Skin warm and dry. No abrasion, no rash noted, not diaphoretic. Nocyanosis or erythema. No pallor. Nails show no clubbing. Psychiatric: Normal mood and affect. Speech normal and behavior is normal. LABS AND RADIOLOGY *I reviewed the following labs and studies. I personally viewed thepertinent images WBC: No results found for: WBC Hemoglobin/Hematocrit: No results found for: HGB, HCT BMP: No results found for: NA, K, CL, CO2, BUN, LABALBU, CREATININE,CALCIUM, GFRAA, LABGLOM PT/INR: No results found for: PROTIME, INR PTT: No results found for: APTT[APTT Ct Abd Pel Ed Fast W Contrast Result Date: 04/16/2020 CT ABDOMEN AND PELVIS WITH CONTRAST (FAST), 04/16/2020 5:40 PM CLINICALHISTORY: -hernia, abdominal pain COMPARISON: 04/02/2014 PROCEDURE COMMENTS:Multi-detector volumetric scanning of the abdomen and pelvis withmultiplanar reformatting per expedited protocol. 100 mL Isovue 370 IV.Automated exposure control for dose reduction was used. CTDIvol: 25.3 mGy.DLP: 1241 mGy-cm. FINDINGS: LOWER CHEST: Mild lingular atelectasis.ABDOMEN & PELVIS: Prior cholecystectomy. Liver, spleen, pancreas, andadrenal glands are unremarkable. Kidneys enhance symmetrically with nohydronephrosis or suspicious lesion. Bladder is unremarkable. Largemultilobulated fat-containing hernia of the left anterior abdominal wallwith associated inflammation of the saphenous fat. No fluid collectionwithin the hernia sac. There are 2 separate abdominal wall defects eachdemonstrating a relatively narrow neck of approximately 2 cm. The herniasac measures up to 13 cm in transverse dimension and 12 cm in craniocaudaldimension. There is mild mesenteric inflammation and perientericinflammatory change of an adjacent loop of small bowel, although the boweldoes not extend into the hernia and there is no evidence for bowelobstruction. No lymphadenopathy. Mild atherosclerotic calcifications. Noacute osseous abnormality. Large multilobulated fat-containing left ventral hernia with associatedinflammatory change change of the subcutaneous fat. Perienteric andmesenteric inflammatory change of the adjacent small bowel is likelyreactive. The small bowel does not extend into the hernia sac and there isno evidence for bowel obstruction. - Kamila Coughlin, 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 04/17/2020 ADMIT Routine 04/16/2020 11:27 PM EDT documented in this encounter Results * SCANNED RHYTHM STRIPS (05/01/2020 2:03 PM EDT) Anatomical Region Laterality Modality Other 05/01/2020 2:03 PM EDT us Unknown Unknown IMG ECG ORDERABLES Final Result * (ABNORMAL) GLUCOSE METER POC (04/28/2020 11:36 AM EDT) [facility] Glucose Meter POC 137(H) 70 - 100 mg/dL 04/28/2020 11:37 AM EDT [facility] Sample Type Capillary 04/28/2020 11:37 AM EDT [facility] Patient Status Non-Critical Patient 04/28/2020 11:37 AM EDT [facility] Blood BLOOD SPECIMEN / Unknown 04/28/2020 11:36 AM EDT 04/28/2020 11:37 AM EDT us Heriberto Shirley DO POINT OF CARE TEST ORDER DICK Final Result [facility] [address] [place] [address] * (ABNORMAL) CBC (04/28/2020 8:05 AM EDT) WBC 12.9(H) 3.7 - 10.3 x10(3)/mcL 04/28/2020 8:30 AM EDT [facility] RBC 3.74(L) 3.90 - 5.20 x10(6)/mcL 04/28/2020 8:30 AM EDT [facility] Hgb 9.8(L) 11.2 - 15.7 g/dL 04/28/2020 8:30 AM EDT [facility] Hct 33.1(L) 34.0 - 45.0 % 04/28/2020 8:30 AM EDT [facility] MCV 88.5 80.0 - 100.0 fL 04/28/2020 8:30 AM EDT [facility] MCH 26.2 26.0 - 34.0 pg 04/28/2020 8:30 AM EDT [facility] MCHC 29.6(L) 30.7 - 35.5 g/dL 04/28/2020 8:30 AM EDT [facility], [facility] RDW 15.3(H) <=14.9 % 04/28/2020 8:30 AM EDT [facility] Platelet 386(H) 155 - 369 x10(3)/mcL 04/28/2020 8:30 AM EDT [facility] MPV 9.2 8.8 - 12.5 fL 04/28/2020 8:30 AM EDT [facility], [facility] Blood VENOUS BLOOD / Unknown Venipuncture / Unknown 04/28/2020 8:05 AM EDT 04/28/2020 8:23 AM EDT us Kenyon Burkett APRN HEMATOLOGY ORDERABLES Final Result Performing Organization Address City/[facility]/ZIP Co de Phone Number [facility], [address], [place] [address] * (ABNORMAL) GLUCOSE METER POC (04/28/2020 7:39 AM EDT) Glucose Meter POC 131(H) 70 - 100 mg/dL 04/28/2020 7:40 AM EDT [facility] Sample Type Capillary 04/28/2020 7:40 AM EDT [facility] Patient Status Non-Critical Patient 04/28/2020 7:40 AM EDT [facility] Blood BLOOD SPECIMEN / Unknown 04/28/2020 7:39 AM EDT 04/28/2020 7:40 AM EDT us Heriberto Shirley DO POINT OF CARE TEST ORDER DICK Final Result [address] [address] * (ABNORMAL) GLUCOSE METER POC (04/27/2020 9:13 PM EDT) Glucose Meter POC 128(H) 70 - 100 mg/dL 04/27/2020 9:14 PM EDT [facility] Sample Type Capillary 04/27/2020 9:14 PM EDT [facility] Patient Status Non-Critical Patient 04/27/2020 9:14 PM EDT [facility] Blood BLOOD SPECIMEN / Unknown 04/27/2020 9:13 PM EDT 04/27/2020 9:14 PM EDT Heriberto Shirley POINT OF CARE TEST ORDER DCIK Final Result Performing Organization Address [facility] [place] [address] * GLUCOSE METER POC (04/27/2020 6:42 PM EDT) Glucose Meter POC 99 70 - 100 mg/dL 04/27/2020 6:43 PM EDT [facility] Sample Type Capillary 04/27/2020 6:43 PM EDT [facility] Patient Status Non-Critical Patient 04/27/2020 6:43 PM EDT [facility] Blood BLOOD SPECIMEN / Unknown 04/27/2020 6:42 PM EDT 04/27/2020 6:43 PM EDT Heriberto Shirley POINT OF CARE TEST ORDER DICK Final Result Performing Organization Address [facility] [place] [address] * (ABNORMAL) GLUCOSE METER POC (04/27/2020 12:46 PM EDT) Glucose Meter POC 113(H) 70 - 100 mg/dL 04/27/2020 12:47 PM EDT [facility] Sample Type Capillary 04/27/2020 12:47 PM EDT [facility] Patient Status Non-Critical Patient 04/27/2020 12:47 PM EDT [facility] Blood BLOOD SPECIMEN / Unknown 04/27/2020 12:46 PM EDT 04/27/2020 12:47 PM EDT Heriberto Shirley DO POINT OF CARE TEST ORDER DICK Final Result [facility] [address] [place] [address] * (ABNORMAL) BASIC METABOLIC PANEL (04/27/2020 10:12 AM EDT) Sodium 140 136 - 145 mmol/L 04/27/2020 10:54 AM EDT [facility] Potassium 3.7 3.5 - 5.0 mmol/L 04/27/2020 10:54 AM EDT [facility] Chloride 101 98 - 107 mmol/L 04/27/2020 10:54 AM EDT [facility] Total CO2 28 22 - 29 mmol/L 04/27/2020 10:54 AM EDT [facility] Anion Gap 11 7 - 16 mmol/L 04/27/2020 10:54 AM EDT [facility] Calcium 10.0 8.8 - 10.4 mg/dL 04/27/2020 10:54 AM EDT [facility] Glucose Lvl 142(H) 82 - 100 mg/dL 04/27/2020 10:54 AM EDT [facility] BUN 7(L) 8 - 23 mg/dL 04/27/2020 10:54 AM EDT [facility] Creatinine 0.57 0.51 - 1.30 mg/dL 04/27/2020 10:54 AM EDT [facility] GFR Afr Am 113 >=60 mL/min/1.7 3 m2 04/27/2020 10:54 AM EDT [facility] GFR Non Afr Am 98 >=60 mL/min/1.7 3 m2 04/27/2020 10:54 AM EDT [facility] Comment: This [...] muscle mass. Blood VENOUS BLOOD / Unknown Butterfly / Unknown 04/27/2020 10:12 AM EDT 04/27/2020 10:25 AM EDT us Colby Kee MD CHEMISTRY ORDERABLES Fin al Result [facility] [address] [facility], [address] [place] [id number] [facility] [address] [place] [id number] * (ABNORMAL) CBC (04/27/2020 10:12 AM EDT) WBC 11.7(H) 3.7 - 10.3 x10(3)/mcL 04/27/2020 10:35 AM EDT [facility] RBC 3.74(L) 3.90 - 5.20 x10(6)/mcL 04/27/2020 10:35 AM EDT [facility] Hgb 10.0(L) 11.2 - 15.7 g/dL 04/27/2020 10:35 AM EDT [facility] Hct 33.4(L) 34.0 - 45.0 % 04/27/2020 10:35 AM EDT [facility] MCV 89.3 80.0 - 100.0 fL 04/27/2020 10:35 AM EDT [facility] MCH 26.7 26.0 - 34.0 pg 04/27/2020 10:35 AM EDT [facility] MCHC 29.9(L) 30.7 - 35.5 g/dL 04/27/2020 10:35 AM EDT [facility] RDW 15.2(H) <=14.9 % 04/27/2020 10:35 AM EDT [facility] Platelet 370(H) 155 - 369 x10(3)/mcL 04/27/2020 10:35 AM EDT [facility] MPV 9.3 8.8 - 12.5 fL 04/27/2020 10:35 AM EDT [facility] Blood VENOUS BLOOD / Unknown Butterfly / Unknown 04/27/2020 10:12 AM EDT 04/27/2020 10:25 AM EDT Kenyon Burkett APRN HEMATOLOGY ORDERABLES Final Result [facility] [address] [facility], [place] [address] * (ABNORMAL) GLUCOSE METER POC (04/27/2020 7:55 AM EDT) Glucose Meter POC 123(H) 70 - 100 mg/dL 04/27/2020 7:55 AM EDT [facility] Sample Type Capillary 04/27/2020 7:55 AM EDT [facility] Patient Status Non-Critical Patient 04/27/2020 7:55 AM EDT [facility] Blood BLOOD SPECIMEN / Unknown 04/27/2020 7:55 AM EDT 04/27/2020 7:55 AM EDT Heriberto Shirley DO POINT OF CARE TEST ORDER DICK Final Result [facility] [address] [place] [id number] * (ABNORMAL) GLUCOSE METER POC (2020 10:06 PM EDT) Glucose Meter POC 108(H) 70 - 100 mg/dL 2020 10:07 PM EDT [facility] Sample Type Capillary 2020 10:07 PM EDT [facility] Patient Status Non-Critical Patient 2020 10:07 PM EDT [facility] Blood BLOOD SPECIMEN / Unknown 2020 10:06 PM EDT 2020 10:07 PM EDT Heriberto Shirley DO POINT OF CARE TEST ORDER DICK Final Result [facility] [address] [place] [address] * (ABNORMAL) GLUCOSE METER POC (2020 6:05 PM EDT) Glucose Meter POC 103(H) 70 - 100 mg/dL 2020 6:06 PM EDT [facility] Sample Type Capillary 2020 6:06 PM EDT [facility] Patient Status Non-Critical Patient 2020 6:06 PM EDT [facility] Blood BLOOD SPECIMEN / Unknown 2020 6:05 PM EDT 2020 6:06 PM EDT Heriberto Shirley DO POINT OF CARE TEST ORDER DICK Final Result Performing Organization Address [facility] [place] [address] * (ABNORMAL) GLUCOSE METER POC (2020 11:32 AM EDT) Glucose Meter POC 105(H) 70 - 100 mg/dL 2020 11:33 AM EDT [facility] Sample Type Capillary 2020 11:33 AM EDT [facility] Patient Status Non-Critical Patient 2020 11:33 AM EDT [facility] Blood BLOOD SPECIMEN / Unknown 2020 11:32 AM EDT 2020 11:33 AM EDT Heriberto Shirley DO POINT OF CARE TEST ORDER DICK Final Result Performing Organization Address City/[facility]/[place] [address] * (ABNORMAL) CBC (2020 6:29 AM EDT) WBC 11.0(H) 3.7 - 10.3 x10(3)/mcL 2020 6:51 AM EDT [facility] RBC 3.37(L) 3.90 - 5.20 x10(6)/mcL 2020 6:51 AM EDT [facility] Hgb 9.0(L) 11.2 - 15.7 g/dL 2020 6:51 AM EDT [facility] Hct 30.0(L) 34.0 - 45.0 % 2020 6:51 AM EDT [facility] MCV 89.0 80.0 - 100.0 fL 2020 6:51 AM EDT [facility] MCH 26.7 26.0 - 34.0 pg 2020 6:51 AM EDT [facility] MCHC 30.0(L) 30.7 - 35.5 g/dL 2020 6:51 AM EDT [facility] RDW 15.0(H) <=14.9 % 2020 6:51 AM EDT [facility] Platelet 320 155 - 369 x10(3)/mcL 2020 6:51 AM EDT [facility] MPV 9.3 8.8 - 12.5 fL 2020 6:51 AM EDT [facility] Blood VENOUS BLOOD / Unknown Venipuncture / Unknown 2020 6:29 AM EDT 2020 6:36 AM EDT us Kenyon Burkett APRN HEMATOLOGY ORDERABLES Final Result [facility] [address] [facility] , [place] [address] * (ABNORMAL) GLUCOSE METER POC (2020 6:02 AM EDT) [facility] Glucose Meter POC 121(H) 70 - 100 mg/dL 2020 6:03 AM EDT [facility] Sample Type Capillary 2020 6:03 AM EDT [facility] Patient Status Non-Critical Patient 2020 6:03 AM EDT [facility] Blood BLOOD SPECIMEN / Unknown 2020 6:02 AM EDT 2020 6:03 AM EDT Heriberto Shirley DO POINT OF CARE TEST ORDER DICK Final Result Performing Organization Address [facility]/[place] [address] * (ABNORMAL) GLUCOSE METER POC (2020 12:01 AM EDT) Glucose Meter POC 132(H) 70 - 100 mg/dL 2020 12:00 AM EDT [facility] Sample Type Capillary 2020 12:00 AM EDT [facility] Patient Status Non-Critical Patient 2020 12:00 AM EDT [facility] Blood BLOOD SPECIMEN / Unknown 2020 12:01 AM EDT 2020 12:00 AM EDT Heriberto Shirley DO POINT OF CARE TEST ORDER DICK Final Result Performing Organization Address [facility] [place] [address] * (ABNORMAL) GLUCOSE METER POC (04/25/2020 3:45 PM EDT) Glucose Meter POC 115(H) 70 - 100 mg/dL 04/25/2020 3:46 PM EDT [facility] Sample Type Capillary 04/25/2020 3:46 PM EDT [facility] Patient Status Non-Critical Patient 04/25/2020 3:46 PM EDT [facility] Blood BLOOD SPECIMEN / Unknown 04/25/2020 3:45 PM EDT 04/25/2020 3:46 PM EDT Heriberto Shirley DO POINT OF CARE TEST ORDER DICK Final Result Performing Organization Address City/[facility] [place] [address] * (ABNORMAL) CBC (04/25/2020 2:56 PM EDT) WBC 10.7(H) 3.7 - 10.3 x10(3)/mcL 04/25/2020 3:08 PM EDT [facility] RBC 3.53(L) 3.90 - 5.20 x10(6)/mcL 04/25/2020 3:08 PM EDT [facility] Hgb 9.3(L) 11.2 - 15.7 g/dL 04/25/2020 3:08 PM EDT [facility] Hct 31.5(L) 34.0 - 45.0 % 04/25/2020 3:08 PM EDT [facility] MCV 89.2 80.0 - 100.0 fL 04/25/2020 3:08 PM EDT [facility] MCH 26.3 26.0 - 34.0 pg 04/25/2020 3:08 PM EDT [facility] MCHC 29.5(L) 30.7 - 35.5 g/dL 04/25/2020 3:08 PM EDT [facility] RDW 15.1(H) <=14.9 % 04/25/2020 3:08 PM EDT [facility] Platelet 309 155 - 369 x10(3)/mcL 04/25/2020 3:08 PM EDT [facility] MPV 9.3 8.8 - 12.5 fL 04/25/2020 3:08 PM EDT [facility] Blood VENOUS BLOOD / Unknown Butterfly / Unknown 04/25/2020 2:56 PM EDT 04/25/2020 3:02 PM EDT Kenyon Burkett APRN HEMATOLOGY ORDERABLES Final Result [facility] [address] [facility] , [place] [address] * (ABNORMAL) GLUCOSE METER POC (04/25/2020 12:09 PM EDT) [facility] Glucose Meter POC 119(H) 70 - 100 mg/dL 04/25/2020 12:10 PM EDT [facility] Sample Type Capillary 04/25/2020 12:10 PM EDT [facility] Patient Status Non-Critical Patient 04/25/2020 12:10 PM EDT [facility] Blood BLOOD SPECIMEN / Unknown 04/25/2020 12:09 PM EDT 04/25/2020 12:10 PM EDT Heriberto Shirley DO POINT OF CARE TEST ORDER DICK Final Result [facility] [address] [place] [address] * (ABNORMAL) GLUCOSE METER POC (04/25/2020 5:13 AM EDT) Glucose Meter POC 106(H) 70 - 100 mg/dL 04/25/2020 5:14 AM EDT [facility] Sample Type Capillary 04/25/2020 5:14 AM EDT [facility] Patient Status Non-Critical Patient 04/25/2020 5:14 AM EDT [facility] Blood BLOOD SPECIMEN / Unknown 04/25/2020 5:13 AM EDT 04/25/2020 5:14 AM EDT Heriberto Shirley DO POINT OF CARE TEST ORDER DICK Final Result Performing Organization Address City/[facility]/ZIP Co de Phone Number [facility] [address] [place] [address] * (ABNORMAL) GLUCOSE METER POC (04/24/2020 11:16 PM EDT) Glucose Meter POC 101(H) 70 - 100 mg/dL 04/24/2020 11:16 PM EDT [facility] Sample Type Capillary 04/24/2020 11:16 PM EDT [facility] Patient Status Non-Critical Patient 04/24/2020 11:16 PM EDT [facility] Blood BLOOD SPECIMEN / Unknown 04/24/2020 11:16 PM EDT 04/24/2020 11:16 PM EDT Heriberto Shirley DO POINT OF CARE TEST ORDER DICK Final Result [facility] [address] [place] [address] * (ABNORMAL) GLUCOSE METER POC (04/24/2020 6:03 PM EDT) Glucose Meter POC 106(H) 70 - 100 mg/dL 04/24/2020 6:04 PM EDT [facility] Sample Type Capillary 04/24/2020 6:04 PM EDT [facility] Patient Status Non-Critical Patient 04/24/2020 6:04 PM EDT [facility] Blood BLOOD SPECIMEN / Unknown 04/24/2020 6:03 PM EDT 04/24/2020 6:04 PM EDT Heriberto Shirley DO POINT OF CARE TEST ORDER DICK Final Result Performing Organization Address [facility] Co de Phone Number [facility] [address] [place] [address] * GLUCOSE METER POC (04/24/2020 11:04 AM EDT) Glucose Meter POC 94 70 - 100 mg/dL 04/24/2020 11:05 AM EDT [facility] Sample Type Capillary 04/24/2020 11:05 AM EDT [facility] Patient Status Non-Critical Patient 04/24/2020 11:05 AM EDT [facility] Blood BLOOD SPECIMEN / Unknown 04/24/2020 11:04 AM EDT 04/24/2020 11:05 AM EDT Heriberto Shirley DO POINT OF CARE TEST ORDER DICK Final Result [facility] [address] [place] [address] * (ABNORMAL) GLUCOSE METER POC (04/24/2020 5:12 AM EDT) Glucose Meter POC 104(H) 70 - 100 mg/dL 04/24/2020 5:13 AM EDT [facility] Sample Type Capillary 04/24/2020 5:13 AM EDT [facility] Patient Status Non-Critical Patient 04/24/2020 5:13 AM EDT [facility] Blood BLOOD SPECIMEN / Unknown 04/24/2020 5:12 AM EDT 04/24/2020 5:13 AM EDT Heriberto Shirley DO POINT OF CARE TEST ORDER DICK Final Result Performing Organization Address City/[facility]/[place] [address] * GLUCOSE METER POC (04/23/2020 11:04 PM EDT) Glucose Meter POC 89 70 - 100 mg/dL 04/23/2020 11:05 PM EDT [facility] Sample Type Capillary 04/23/2020 11:05 PM EDT [facility] Patient Status Non-Critical Patient 04/23/2020 11:05 PM EDT [facility] Blood BLOOD SPECIMEN / Unknown 04/23/2020 11:04 PM EDT 04/23/2020 11:05 PM EDT Heriberto Shirley DO POINT OF CARE TEST ORDER DICK Final Result Performing Organization Address [facility]/[place] [address] * GLUCOSE METER POC (04/23/2020 6:12 PM EDT) Glucose Meter POC 76 70 - 100 mg/dL 04/23/2020 6:13 PM EDT [facility] Sample Type Capillary 04/23/2020 6:13 PM EDT [facility] Patient Status Non-Critical Patient 04/23/2020 6:13 PM EDT [facility] Blood BLOOD SPECIMEN / Unknown 04/23/2020 6:12 PM EDT 04/23/2020 6:13 PM EDT Heriberto Shirley DO POINT OF CARE TEST ORDER DICK Final Result Performing Organization Address City/[facility]/[place] [address] * (ABNORMAL) BASIC METABOLIC PANEL (04/23/2020 4:17 PM EDT) Sodium 138 136 - 145 mmol/L 04/23/2020 5:07 PM EDT [facility] Potassium 3.8 3.5 - 5.0 mmol/L 04/23/2020 5:07 PM EDT [facility] Chloride 97(L) 98 - 107 mmol/L 04/23/2020 5:07 PM EDT [facility] Total CO2 27 22 - 29 mmol/L 04/23/2020 5:07 PM EDT [facility] Anion Gap 14 7 - 16 mmol/L 04/23/2020 5:07 PM EDT [facility] Calcium 9.1 8.8 - 10.4 mg/dL 04/23/2020 5:07 PM EDT [facility] Glucose Lvl 82 82 - 100 mg/dL 04/23/2020 5:07 PM EDT [facility] BUN 10 8 - 23 mg/dL 04/23/2020 5:07 PM EDT [facility] Creatinine 0.55 0.51 - 1.30 mg/dL 04/23/2020 5:07 PM EDT [facility] GFR Afr Am 115 >=60 mL/min/1.7 3 m2 04/23/2020 5:07 PM EDT [facility] GFR Non Afr Am 100 >=60 mL/min/1.7 3 m2 04/23/2020 5:07 PM EDT [facility] Comment: [...] muscle mass. Blood VENOUS BLOOD / Unknown Butterfly / Unknown 04/23/2020 4:17 PM EDT 04/23/2020 4:35 PM EDT us Tana Badillo 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 CHEMISTRY ORDERABLES Final R esult [facility] [address] [facility] [address] [place] [address] [facility] [address] [place] [address] * (ABNORMAL) CBC (04/23/2020 4:17 PM EDT) WBC 10.1 3.7 - 10.3 x10(3)/mcL 04/23/2020 4:44 PM EDT [facility] RBC 3.27(L) 3.90 - 5.20 x10(6)/mcL 04/23/2020 4:44 PM EDT [facility] Hgb 8.9(L) 11.2 - 15.7 g/dL 04/23/2020 4:44 PM EDT [facility] Hct 29.4(L) 34.0 - 45.0 % 04/23/2020 4:44 PM EDT [facility] MCV 89.9 80.0 - 100.0 fL 04/23/2020 4:44 PM EDT [facility] MCH 27.2 26.0 - 34.0 pg 04/23/2020 4:44 PM EDT [facility] MCHC 30.3(L) 30.7 - 35.5 g/dL 04/23/2020 4:44 PM EDT [facility] RDW 15.0(H) <=14.9 % 04/23/2020 4:44 PM EDT [facility] Platelet 271 155 - 369 x10(3)/mcL 04/23/2020 4:44 PM EDT [facility] MPV 9.6 8.8 - 12.5 fL 04/23/2020 4:44 PM EDT [facility] Blood VENOUS BLOOD / Unknown Butterfly / Unknown 04/23/2020 4:17 PM EDT 04/23/2020 4:35 PM EDT us Tana Badillo 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 HEMATOLOGY ORDERABLES Final Result [facility] [address] [facility] [address], [place] [address] * GLUCOSE METER POC (04/23/2020 12:57 PM EDT) Glucose Meter POC 82 70 - 100 mg/dL 04/23/2020 12:58 PM EDT [facility] Sample Type Capillary 04/23/2020 12:58 PM EDT [facility] Patient Status Non-Critical Patient 04/23/2020 12:58 PM EDT [facility] Blood BLOOD SPECIMEN / Unknown 04/23/2020 12:57 PM EDT 04/23/2020 12:58 PM EDT Heriberto Shirley DO POINT OF CARE TEST ORDER DICK Final Result Performing Organization Address City/[facility]/ZIP Co de Phone Number [address] [address] * GLUCOSE METER POC (04/23/2020 5:38 AM EDT) Glucose Meter POC 90 70 - 100 mg/dL 04/23/2020 5:39 AM EDT [facility] Sample Type Capillary 04/23/2020 5:39 AM EDT [facility] Patient Status Non-Critical Patient 04/23/2020 5:39 AM EDT [facility] Blood BLOOD SPECIMEN / Unknown 04/23/2020 5:38 AM EDT 04/23/2020 5:38 AM EDT Heriberto Shirley DO POINT OF CARE TEST ORDER DICK Final Result [address] [address] * GLUCOSE METER POC (04/22/2020 11:11 PM EDT) Glucose Meter POC 93 70 - 100 mg/dL 04/22/2020 11:12 PM EDT [facility] Sample Type Capillary 04/22/2020 11:12 PM EDT [facility] Patient Status Non-Critical Patient 04/22/2020 11:12 PM EDT [facility] Blood BLOOD SPECIMEN / Unknown 04/22/2020 11:11 PM EDT 04/22/2020 11:12 PM EDT Heriberto Shirley DO POINT OF CARE TEST [place] [address] * GLUCOSE METER POC (04/22/2020 5:36 PM EDT) Glucose Meter POC 94 70 - 100 mg/dL 04/22/2020 5:37 PM EDT [facility] Sample Type Capillary 04/22/2020 5:37 PM EDT [facility] Patient Status Non-Critical Patient 04/22/2020 5:37 PM EDT [facility] Blood BLOOD SPECIMEN / Unknown 04/22/2020 5:36 PM EDT 04/22/2020 5:37 PM EDT Heriberto Shirley DO POINT OF CARE TEST ORDER DICK Final Result Performing Organization Address City/[facility]/[place] [address] * GLUCOSE METER POC (04/22/2020 12:38 PM EDT) Glucose Meter POC 95 70 - 100 mg/dL 04/22/2020 12:39 PM EDT [facility] Sample Type Capillary 04/22/2020 12:39 PM EDT [facility] Patient Status Non-Critical Patient 04/22/2020 12:39 PM EDT [facility] Blood BLOOD SPECIMEN / Unknown 04/22/2020 12:38 PM EDT 04/22/2020 12:39 PM EDT Heriberto Shirley DO POINT OF CARE TEST [place] [address] * (ABNORMAL) GLUCOSE METER POC (04/22/2020 7:52 AM EDT) Glucose Meter POC 105(H) 70 - 100 mg/dL 04/22/2020 7:53 AM EDT [facility] Sample Type Capillary 04/22/2020 7:53 AM EDT [facility] Patient Status Non-Critical Patient 04/22/2020 7:53 AM EDT [facility] Blood BLOOD SPECIMEN / Unknown 04/22/2020 7:52 AM EDT 04/22/2020 7:53 AM EDT Heriberto Shirley DO POINT OF CARE TEST ORDER DICK Final Result Performing Organization Address [facility] Co de Phone Number [address] [address] * (ABNORMAL) GLUCOSE METER POC (04/21/2020 9:06 PM EDT) Glucose Meter POC 114(H) 70 - 100 mg/dL 04/21/2020 9:07 PM EDT [facility] Sample Type Capillary 04/21/2020 9:07 PM EDT [facility] Patient Status Non-Critical Patient 04/21/2020 9:07 PM EDT [facility] Blood BLOOD SPECIMEN / Unknown 04/21/2020 9:06 PM EDT 04/21/2020 9:07 PM EDT Heriberto Shirley DO POINT OF CARE TEST ORDER DICK Final Result Performing Organization Address City/[facility]/ZIP Co de Phone Number [address] [address] * (ABNORMAL) GLUCOSE METER POC (04/21/2020 5:00 PM EDT) Glucose Meter POC 129(H) 70 - 100 mg/dL 04/21/2020 5:01 PM EDT [facility] Sample Type Capillary 04/21/2020 5:01 PM EDT [facility] Patient Status Non-Critical Patient 04/21/2020 5:01 PM EDT [facility] Blood BLOOD SPECIMEN / Unknown 04/21/2020 5:00 PM EDT 04/21/2020 5:01 PM EDT Heriberto Shirley DO POINT OF CARE TEST ORDER DICK Final Result Performing Organization Address City/[facility]/[place] [address] * (ABNORMAL) GLUCOSE METER POC (04/21/2020 12:48 PM EDT) Glucose Meter POC 131(H) 70 - 100 mg/dL 04/21/2020 12:49 PM EDT [facility] Sample Type Capillary 04/21/2020 12:49 PM EDT [facility] Patient Status Non-Critical Patient 04/21/2020 12:49 PM EDT [facility] Blood BLOOD SPECIMEN / Unknown 04/21/2020 12:48 PM EDT 04/21/2020 12:49 PM EDT Heriberto Shirley DO POINT OF CARE TEST ORDER DICK Final Result Performing Organization Address [facility] [place] [address] * (ABNORMAL) BASIC METABOLIC PANEL (04/21/2020 9:37 AM EDT) Sodium 139 136 - 145 mmol/L 04/21/2020 10:17 AM EDT [facility] Potassium 3.9 3.5 - 5.0 mmol/L 04/21/2020 10:17 AM EDT [facility] Chloride 96(L) 98 - 107 mmol/L 04/21/2020 10:17 AM EDT [facility] Total CO2 32(H) 22 - 29 mmol/L 04/21/2020 10:17 AM EDT [facility] Anion Gap 11 7 - 16 mmol/L 04/21/2020 10:17 AM EDT [facility] Calcium 10.0 8.8 - 10.4 mg/dL 04/21/2020 10:17 AM EDT [facility] Glucose Lvl 142(H) 82 - 100 mg/dL 04/21/2020 10:17 AM EDT [facility] BUN 9 8 - 23 mg/dL 04/21/2020 10:17 AM EDT [facility] Creatinine 0.69 0.51 - 1.30 mg/dL 04/21/2020 10:17 AM EDT [facility] GFR Afr Am 107 >=60 mL/min/1.7 3 m2 04/21/2020 10:17 AM EDT [facility] GFR Non Afr Am 93 >=60 mL/min/1.7 3 m2 04/21/2020 10:17 AM EDT [facility] Comment: This [...] VENOUS BLOOD / Unknown Venipuncture / Unknown 04/21/2020 9:37 AM EDT 04/21/2020 9:41 AM EDT us Tana Badillo 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 CHEMISTRY ORDERABLES Final R esult [address] , [place] [address] [facility] [address] [place] [address] * (ABNORMAL) CBC (04/21/2020 9:37 AM EDT) [facility] WBC 13.1(H) 3.7 - 10.3 x10(3)/mcL 04/21/2020 9:58 AM EDT [facility] RBC 3.85(L) 3.90 - 5.20 x10(6)/mcL 04/21/2020 9:58 AM EDT [facility] Hgb 10.5(L) 11.2 - 15.7 g/dL 04/21/2020 9:58 AM EDT [facility] Hct 34.3 34.0 - 45.0 % 04/21/2020 9:58 AM EDT [facility] MCV 89.1 80.0 - 100.0 fL 04/21/2020 9:58 AM EDT [facility] MCH 27.3 26.0 - 34.0 pg 04/21/2020 9:58 AM EDT [facility] MCHC 30.6(L) 30.7 - 35.5 g/dL 04/21/2020 9:58 AM EDT [facility] RDW 15.5(H) <=14.9 % 04/21/2020 9:58 AM EDT [facility] Platelet 289 155 - 369 x10(3)/mcL 04/21/2020 9:58 AM EDT [facility] MPV 9.6 8.8 - 12.5 fL 04/21/2020 9:58 AM EDT [facility] Blood VENOUS BLOOD / Unknown Venipuncture / Unknown 04/21/2020 9:37 AM EDT 04/21/2020 9:41 AM EDT Tana Badillo APRN HEMATOLOGY ORDERABLES Final Result [facility] [address] [facility], [place] [address] * (ABNORMAL) GLUCOSE METER POC (04/21/2020 7:58 AM EDT) [facility] Glucose Meter POC 140(H) 70 - 100 mg/dL 04/21/2020 7:59 AM EDT [facility] Sample Type Capillary 04/21/2020 7:59 AM EDT [facility] Patient Status Non-Critical Patient 04/21/2020 7:59 AM EDT [facility] Blood BLOOD SPECIMEN / Unknown 04/21/2020 7:58 AM EDT 04/21/2020 7:58 AM EDT Heriberto Shirley DO POINT OF CARE TEST [place] [address] * XR CHEST PA OR AP (04/21/2020 7:50 AM EDT) Anatomical Region Laterality Modality Chest Radiographic Faby ging 04/21/2020 7:50 AM EDT Impressions 04/21/2020 8:52 AM EDT NG tube tip in stomach. - Narrative 04/21/2020 8:52 AM EDT CR, CHEST PA OR AP, ??04/21/2020 7:50 AM CLINICAL HISTORY: ??-NG placement COMPARISON: ??06/24/2019 and AP abdomen 04/21/2020 PROCEDURE COMMENTS: Frontal chest xray, PA or AP technique. FINDINGS: NG tube noted with tip in the stomach. Heart size borderline but stable. Lung volumes are low. Lungs clear. Procedure Note Tank Campos MD - 04/21/2020 CR, CHEST PA OR AP, 04/21/2020 7:50 AM CLINICAL HISTORY: -NG placement COMPARISON: 06/24/2019 and AP abdomen 04/21/2020 PROCEDURE COMMENTS: Frontal chest xray, PA or AP technique. FINDINGS: NG tube noted with tip in the stomach. Heart size borderline but stable. Lung volumes are low. Lungs clear. IMPRESSION: NG tube tip in stomach. - Regan Butts MD IMG DIAGNOSTIC IMAGING ORDERA BLES Final Result * XR ABDOMEN AP (04/21/2020 4:07 AM EDT) Anatomical Region Laterality Modality Abdomen Radiographic Faby ging 04/21/2020 4:07 AM EDT Impressions 04/21/2020 4:19 AM EDT New mild small bowel obstruction or ileus. Continued follow-up is recommended Narrative 04/21/2020 4:19 AM EDT CLINICAL HISTORY: -vomiting. COMPARISON: None. TECHNIQUE: XR ABDOMEN AP on 04/21/2020 4:07 AM. FINDINGS: There is new mild dilation of the small bowel within the central abdomen. Gas and stool is noted in the colon. Free air is not excluded. There are degenerative changes in the osseous structures. Procedure Note Rob Gutiérrez MD - 04/21/2020 CLINICAL HISTORY: -vomiting. COMPARISON: None. TECHNIQUE: XR ABDOMEN AP on 04/21/2020 4:07 AM. FINDINGS: There is new mild dilation of the small bowel within thecentral abdomen. Gas and stool is noted in the colon. Free air is not excluded.There are degenerative changes in the osseous structures. IMPRESSION: New mild small bowel obstruction or ileus. Continued follow-up is recommended Regan Butts MD IMG DIAGNOSTIC IMAGING ORDERA BLES Final Result * EXTRA LAND URINE CX (04/21/2020 12:24 AM EDT) Urine URINE SPECIMEN COLLECTION, CLEAN CATCH / Unknown 04/21/2020 12:24 AM EDT 04/21/2020 12:29 AM EDT Heriberto Shirley DO MICROBIOLOGY - GENERAL [place] [address] * (ABNORMAL) URINALYSIS (04/21/2020 12:24 AM EDT) UA Color Yellow 04/21/2020 12:40 AM EDT [facility] UA Appear Cloudy(A) Clear 04/21/2020 12:40 AM EDT [facility] UA Glucose Negative Negative mg/dL 04/21/2020 12:40 AM EDT [facility] UA Ketones Negative Negative mg/dL 04/21/2020 12:40 AM EDT [facility] UA Blood Moderate(A) Negative 04/21/2020 12:40 AM EDT [facility] UA pH 5.0 5.0 - 8.0 pH 04/21/2020 12:40 AM EDT [facility] UA Protein 30(A) Negative mg/dL 04/21/2020 12:40 AM EDT [facility] UA Urobilinogen 2.0(A) <=1 mg/dL 0 12:40 AM EDT [facility] UA Bili Negative Negative 04/21/2020 12:40 AM EDT [facility] UA Nitrite Negative Negative 04/21/2020 12:40 AM EDT [facility] UA Leuk Est Negative Negative 04/21/2020 12:40 AM EDT [facility] UA Spec Grav 1.019 1.001 - 1.035 no units 04/21/2020 12:40 AM EDT [facility] Comment:Reference range dano d for random specimens only. UA WBC 4 0 - 4 /HPF 04/21/2020 12:40 AM EDT [facility] UA RBC 2 0 - 3 /HPF 04/21/2020 12:40 AM EDT [facility] UA Squam Epi 4+ /LPF 04/21/2020 12:40 AM EDT [facility] UA Mucus 2+ /LPF 04/21/2020 12:40 AM EDT [facility] UA Bacteria 1+(A) Negative /HPF 04/21/2020 12:40 AM EDT [facility] Urine URINE SPECIMEN COLLECTION, CLEAN CATCH / Unknown 04/21/2020 12:24 AM EDT 04/21/2020 12:29 AM EDT Heriberto Shirley DO URINE ORDERABLES Final R esult Performing Organization Address City/State/[facility] Co de Phone Number [facility] [address] [facility] , [place] [address] * (ABNORMAL) GLUCOSE METER POC (04/20/2020 9:13 PM EDT) [facility] Glucose Meter POC 140(H) 70 - 100 mg/dL 04/20/2020 9:15 PM EDT [facility] Sample Type Capillary 04/20/2020 9:15 PM EDT [facility] Patient Status Non-Critical Patient 04/20/2020 9:15 PM EDT [facility] Blood BLOOD SPECIMEN / Unknown 04/20/2020 9:13 PM EDT 04/20/2020 9:15 PM EDT Heriberto Shirley DO POINT OF CARE TEST ORDER DICK Final Result Performing Organization Address City/[facility] Co de Phone Number [facility] [address] [place] [address] * (ABNORMAL) GLUCOSE METER POC (04/20/2020 5:17 PM EDT) Glucose Meter POC 145(H) 70 - 100 mg/dL 04/20/2020 5:18 PM EDT [facility] Sample Type Capillary 04/20/2020 5:18 PM EDT [facility] Patient Status Non-Critical Patient 04/20/2020 5:18 PM EDT [facility] Blood BLOOD SPECIMEN / Unknown 04/20/2020 5:17 PM EDT 04/20/2020 5:18 PM EDT Heriberto Shirley DO POINT OF CARE TEST ORDER DICK Final Result Performing Organization Address [facility] Co de Phone Number [facility] [address] [place] [address] * (ABNORMAL) GLUCOSE METER POC (04/20/2020 12:48 PM EDT) Glucose Meter POC 142(H) 70 - 100 mg/dL 04/20/2020 12:48 PM EDT [facility] Sample Type Capillary 04/20/2020 12:48 PM EDT [facility] Patient Status Non-Critical Patient 04/20/2020 12:48 PM EDT [facility] Blood BLOOD SPECIMEN / Unknown 04/20/2020 12:48 PM EDT 04/20/2020 12:48 PM EDT Heriberto Shirley DO POINT OF CARE TEST ORDER DICK Final Result [facility] [address] [place] [address] * (ABNORMAL) GLUCOSE METER POC (04/20/2020 8:11 AM EDT) Glucose Meter POC 123(H) 70 - 100 mg/dL 04/20/2020 8:12 AM EDT [facility] Sample Type Capillary 04/20/2020 8:12 AM EDT [facility] Patient Status Non-Critical Patient 04/20/2020 8:12 AM EDT [facility] Blood BLOOD SPECIMEN / Unknown 04/20/2020 8:11 AM EDT 04/20/2020 8:12 AM EDT Heriberto Shirley DO POINT OF CARE TEST ORDER DICK Final Result [facility] [address] [place] [phone] * (ABNORMAL) CBC (04/20/2020 6:59 AM EDT) WBC 15.4(H) 3.7 - 10.3 x10(3)/mcL 04/20/2020 7:25 AM EDT [facility] RBC 3.58(L) 3.90 - 5.20 x10(6)/mcL 04/20/2020 7:25 AM EDT [facility] Hgb 9.6(L) 11.2 - 15.7 g/dL 04/20/2020 7:25 AM EDT [facility] Hct 32.0(L) 34.0 - 45.0 % 04/20/2020 7:25 AM EDT [facility] MCV 89.4 80.0 - 100.0 fL 04/20/2020 7:25 AM EDT [facility] MCH 26.8 26.0 - 34.0 pg 04/20/2020 7:25 AM EDT [facility] MCHC 30.0(L) 30.7 - 35.5 g/dL 04/20/2020 7:25 AM EDT [facility] RDW 15.6(H) <=14.9 % 04/20/2020 7:25 AM EDT [facility] Platelet 255 155 - 369 x10(3)/mcL 04/20/2020 7:25 AM EDT [facility] MPV 9.6 8.8 - 12.5 fL 04/20/2020 7:25 AM EDT [facility] Blood VENOUS BLOOD / Unknown Venipuncture / Unknown 04/20/2020 6:59 AM EDT 04/20/2020 7:13 AM EDT Regan Butts MD HEMATOLOGY ORDERABLES Final R esult [facility] [address] [facility] , [place] [address] * (ABNORMAL) BASIC METABOLIC PANEL (04/20/2020 6:57 AM EDT) Sodium 138 136 - 145 mmol/L 04/20/2020 7:43 AM EDT [facility] Potassium 4.1 3.5 - 5.0 mmol/L 04/20/2020 7:43 AM EDT [facility] Chloride 100 98 - 107 mmol/L 04/20/2020 7:43 AM EDT [facility] Total CO2 27 22 - 29 mmol/L 04/20/2020 7:43 AM EDT [facility] Anion Gap 11 7 - 16 mmol/L 04/20/2020 7:43 AM EDT [facility] Calcium 9.1 8.8 - 10.4 mg/dL 04/20/2020 7:43 AM EDT [facility] Glucose Lvl 139(H) 82 - 100 mg/dL 04/20/2020 7:43 AM EDT [facility] BUN 5(L) 8 - 23 mg/dL 04/20/2020 7:43 AM EDT [facility] Creatinine 0.67 0.51 - 1.30 mg/dL 04/20/2020 7:43 AM EDT [facility] GFR Afr Am 108 >=60 mL/min/1.7 3 m2 04/20/2020 7:43 AM EDT [facility] GFR Non Afr Am 94 >=60 mL/min/1.7 3 m2 04/20/2020 7:43 AM EDT [facility] Comment: This [...] VENOUS BLOOD / Unknown Venipuncture / Unknown 04/20/2020 6:57 AM EDT 04/20/2020 7:13 AM EDT Regan Butts MD CHEMISTRY ORDERABLES Final Re sult Performing Organization Address [facility] Co de Phone Number [facility] [employer] [facility] [address] [facility], [place] [address] [facility] [address] [place] [address] * (ABNORMAL) GLUCOSE METER POC (04/19/2020 10:19 PM EDT) Glucose Meter POC 159(H) 70 - 100 mg/dL 04/19/2020 10:19 PM EDT [facility] Sample Type Capillary 04/19/2020 10:19 PM EDT [facility] Patient Status Non-Critical Patient 04/19/2020 10:19 PM EDT [facility] Blood BLOOD SPECIMEN / Unknown 04/19/2020 10:19 PM EDT 04/19/2020 10:19 PM EDT Heriberto Shirley DO POINT OF CARE TEST ORDER DICK Final Result Performing Organization Address [facility] [place] [address] * (ABNORMAL) GLUCOSE METER POC (04/19/2020 5:26 PM EDT) Glucose Meter POC 172(H) 70 - 100 mg/dL 04/19/2020 5:27 PM EDT [facility] Sample Type Capillary 04/19/2020 5:27 PM EDT [facility] Patient Status Non-Critical Patient 04/19/2020 5:27 PM EDT [facility] Blood BLOOD SPECIMEN / Unknown 04/19/2020 5:26 PM EDT 04/19/2020 5:27 PM EDT Heriberto Shirley DO POINT OF CARE TEST ORDER DICK Final Result Performing Organization Address City/[facility]/ZIP Co de Phone Number [address] [address] * (ABNORMAL) GLUCOSE METER POC (04/19/2020 12:15 PM EDT) [facility] Glucose Meter POC 137(H) 70 - 100 mg/dL 04/19/2020 12:16 PM EDT [facility] Sample Type Capillary 04/19/2020 12:16 PM EDT [facility] Patient Status Non-Critical Patient 04/19/2020 12:16 PM EDT [facility] Blood BLOOD SPECIMEN / Unknown 04/19/2020 12:15 PM EDT 04/19/2020 12:16 PM EDT Heriberto Shirley DO POINT OF CARE TEST ORDER DICK Final Result Performing Organization Address City/[facility] Co de Phone Number [address] [address] * (ABNORMAL) CBC (04/19/2020 6:15 AM EDT) [facility] Signature WBC 16.2(H) 3.7 - 10.3 x10(3)/mcL 04/19/2020 6:47 AM EDT [facility] RBC 3.84(L) 3.90 - 5.20 x10(6)/mcL 04/19/2020 6:47 AM EDT [facility] Hgb 10.3(L) 11.2 - 15.7 g/dL 04/19/2020 6:47 AM EDT [facility] Hct 34.4 34.0 - 45.0 % 04/19/2020 6:47 AM EDT [facility] MCV 89.6 80.0 - 100.0 fL 04/19/2020 6:47 AM EDT [facility] MCH 26.8 26.0 - 34.0 pg 04/19/2020 6:47 AM EDT [facility] MCHC 29.9(L) 30.7 - 35.5 g/dL 04/19/2020 6:47 AM EDT [facility] RDW 15.1(H) <=14.9 % 04/19/2020 6:47 AM EDT [facility] Platelet 263 155 - 369 x10(3)/mcL 04/19/2020 6:47 AM EDT [facility] MPV 9.5 8.8 - 12.5 fL 04/19/2020 6:47 AM EDT [facility] Blood VENOUS BLOOD / Unknown Venipuncture / Unknown 04/19/2020 6:15 AM EDT 04/19/2020 6:37 AM EDT Regan Butts MD HEMATOLOGY ORDERABLES Final R esult [facility] [address] [facility] , [place] [address] * (ABNORMAL) BASIC METABOLIC PANEL (04/19/2020 6:15 AM EDT) Sodium 137 136 - 145 mmol/L 04/19/2020 7:08 AM EDT [facility] Potassium 4.4 3.5 - 5.0 mmol/L 04/19/2020 7:08 AM EDT [facility] Chloride 102 98 - 107 mmol/L 04/19/2020 7:08 AM EDT [facility] Total CO2 25 22 - 29 mmol/L 04/19/2020 7:08 AM EDT [facility] Anion Gap 10 7 - 16 mmol/L 04/19/2020 7:08 AM EDT [facility] Calcium 8.8 8.8 - 10.4 mg/dL 04/19/2020 7:08 AM EDT [facility] Glucose Lvl 119(H) 82 - 100 mg/dL 04/19/2020 7:08 AM EDT [facility] BUN 7(L) 8 - 23 mg/dL 04/19/2020 7:08 AM EDT [facility] Creatinine 0.60 0.51 - 1.30 mg/dL 04/19/2020 7:08 AM EDT [facility] GFR Afr Am 112 >=60 mL/min/1.7 3 m2 04/19/2020 7:08 AM EDT [facility] GFR Non Afr Am 97 >=60 mL/min/1.7 3 m2 04/19/2020 7:08 AM EDT [facility] Comment: This [...] VENOUS BLOOD / Unknown Venipuncture / Unknown 04/19/2020 6:15 AM EDT 04/19/2020 6:37 AM EDT Regan Butts MD CHEMISTRY ORDERABLES Final Re sult Performing Organization Address City/[facility]/ZIP Co de Phone Number [facility] [employer] [address] [facility], [place] [address] [facility] [address] [place], [place] [id number] * (ABNORMAL) GLUCOSE METER POC (04/19/2020 6:08 AM EDT) Glucose Meter POC 103(H) 70 - 100 mg/dL 04/19/2020 6:09 AM EDT [facility] Sample Type Capillary 04/19/2020 6:09 AM EDT [facility] Patient Status Non-Critical Patient 04/19/2020 6:09 AM EDT [facility] Blood BLOOD SPECIMEN / Unknown 04/19/2020 6:08 AM EDT 04/19/2020 6:09 AM EDT Heriberto Shirley DO POINT OF CARE TEST ORDER DICK Final Result Performing Organization Address City/[facility]/ZIP Co de Phone Number [facility] [address] [place] [phone] * (ABNORMAL) GLUCOSE METER POC (04/18/2020 11:41 PM EDT) Glucose Meter POC 154(H) 70 - 100 mg/dL 04/18/2020 11:42 PM EDT [facility] Sample Type Capillary 04/18/2020 11:42 PM EDT [facility] Patient Status Non-Critical Patient 04/18/2020 11:42 PM EDT [facility] Blood BLOOD SPECIMEN / Unknown 04/18/2020 11:41 PM EDT 04/18/2020 11:42 PM EDT Heriberto Shirley DO POINT OF CARE TEST ORDER DICK Final Result Performing Organization Address [facility] [place] [address] * (ABNORMAL) GLUCOSE METER POC (04/18/2020 9:46 PM EDT) Glucose Meter POC 136(H) 70 - 100 mg/dL 04/18/2020 9:47 PM EDT [facility] Sample Type Capillary 04/18/2020 9:47 PM EDT [facility] Patient Status Non-Critical Patient 04/18/2020 9:47 PM EDT [facility] Blood BLOOD SPECIMEN / Unknown 04/18/2020 9:46 PM EDT 04/18/2020 9:47 PM EDT Heriberto Shirley DO POINT OF CARE TEST ORDER DICK Final Result Performing Organization Address City/[facility]/ZIP Co de Phone Number [address] [address] * GLUCOSE METER POC (04/18/2020 4:47 PM EDT) Glucose Meter POC 76 70 - 100 mg/dL 04/18/2020 4:48 PM EDT [facility] Sample Type Capillary 04/18/2020 4:48 PM EDT [facility] Patient Status Non-Critical Patient 04/18/2020 4:48 PM EDT [facility] Blood BLOOD SPECIMEN / Unknown 04/18/2020 4:47 PM EDT 04/18/2020 4:48 PM EDT Heriberto Shirley DO POINT OF CARE TEST ORDER DICK Final Result [facility] [address] [id number] * GLUCOSE METER POC (04/18/2020 12:08 PM EDT) Glucose Meter POC 84 70 - 100 mg/dL 04/18/2020 12:08 PM EDT [facility] Sample Type Capillary 04/18/2020 12:08 PM EDT [facility] Patient Status Non-Critical Patient 04/18/2020 12:08 PM EDT [facility] Blood BLOOD SPECIMEN / Unknown 04/18/2020 12:08 PM EDT 04/18/2020 12:08 PM EDT Heriberto Shirley DO POINT OF CARE TEST ORDER DICK Final Result Performing Organization Address [facility]/ZIP Co de Phone Number [facility] [address] [place] [id number] * GLUCOSE METER POC (04/18/2020 10:07 AM EDT) Glucose Meter POC 78 70 - 100 mg/dL 04/18/2020 10:07 AM EDT [facility] Sample Type Capillary 04/18/2020 10:07 AM EDT [facility] Patient Status Non-Critical Patient 04/18/2020 10:07 AM EDT [facility] Blood BLOOD SPECIMEN / Unknown 04/18/2020 10:07 AM EDT 04/18/2020 10:07 AM EDT Heriberto Shirley DO POINT OF CARE TEST ORDER DICK Final Result Performing Organization Address City/[facility]/ZIP Co de Phone Number [facility] [address] [place] [address] * BB HISTORY CHECK (04/18/2020 8:20 AM EDT) BB HISTORY CHECK (1) Previous History OK 04/18/2020 8:42 AM EDT [facility] Blood VENOUS BLOOD / Unknown Venipuncture / Unknown 04/18/2020 8:20 AM EDT 04/18/2020 8:31 AM EDT us Renetta Miles 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 BLOOD BANK ORDERABLES Final Result Performing Organization Address [facility] Co de Phone Number [facility] [place] [address] * ANTIBODY SCREEN IGG (04/18/2020 8:20 AM EDT) ABSC IgG Int Negative 04/18/2020 9:29 AM EDT [facility] Blood VENOUS BLOOD / Unknown Venipuncture / Unknown 04/18/2020 8:20 AM EDT 04/18/2020 8:31 AM EDT us Grangerleigh Miles 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 BLOOD BANK ORDERABLES Final Result Performing Organization Address [facility] de Phone Number [facility] [place] [address] * ABORH (04/18/2020 8:20 AM EDT) ABORH Int O POS 04/18/2020 9:0 9 AM EDT [facility] Blood VENOUS BLOOD / Unknown Venipuncture / Unknown 04/18/2020 8:20 AM EDT 04/18/2020 8:31 AM EDT us Grangera Miles 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 BLOOD BANK ORDERABLES Final Result Performing Organization Address [facility] de Phone Number [facility] [address] [phone] * EK EKG 12 LEAD (04/18/2020 8:03 AM EDT) Anatomical Region Laterality Modality Electrocardiogra phy 04/18/2020 8:11 AM EDT Impressions 04/18/2020 8:55 AM EDT ?Richey Mauk ? Test Date: ?2020-04-18 Pat Name: ? ALYSSA CAMPOS ?Department: ?? DEPID ? Room: ? 2318 Gender: ? Female ? [employer]: ?? Ap : ?1955 ? Requested By: RENETTA MILES Order Number: [id number] ?Reading MD: ?? Alvaro Membreno, MD ? Measurements Intervals ?[place]urz ? Rate: ? 63 ? P: ?53 MT: ? 211 ?QRS: ?-34 QRSD: ? 94 ? T: ?21 QT: ? 372 ? QTc: ?382 ? Interpretive Statements SINUS RHYTHM WITH FIRST DEGREE AV BLOCK LEFT AXIS DEVIATION minimal change from 03/13/17 record Electronically Signed On 04-18-2020 8:55:51 EDT by Alvaro Membreno MD Narrative Procedure Note Alvaro Membreno MD - 04/18/[address] Test Date: 2020-04-18 Pat Name: ALYSSA CAMPOS Department: DEPID Room: 2318 Gender: Female [employer]: Ap : 1955 Requested By: RENETTA MILES Order Number: [id number] Reading MD: Alvaro Membreno MD Measurements Intervals Schurz Rate: 63 P: 53 MT: 211 QRS: -34 QRSD: 94 T: 21 QT: 372 QTc: 382 Interpretive Statements SINUS RHYTHM WITH FIRST DEGREE AV BLOCK LEFT AXIS DEVIATION minimal change from 03/13/17 record Electronically Signed On 04-18-2020 8:55:51 EDT by Alvaro Membreno MD us Renetta Miles 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 IMG ECG ORDERABLES Final Res ult * (ABNORMAL) CBC (04/18/2020 7:01 AM EDT) [facility] WBC 7.7 3.7 - 10.3 x10(3)/mcL 04/18/2020 7:19 AM EDT [facility] RBC 3.92 3.90 - 5.20 x10(6)/mcL 04/18/2020 7:19 AM EDT [facility] Hgb 10.5(L) 11.2 - 15.7 g/dL 04/18/2020 7:19 AM EDT [facility] Hct 35.1 34.0 - 45.0 % 04/18/2020 7:19 AM EDT [facility] MCV 89.5 80.0 - 100.0 fL 04/18/2020 7:19 AM EDT [facility] MCH 26.8 26.0 - 34.0 pg 04/18/2020 7:19 AM EDT [facility] MCHC 29.9(L) 30.7 - 35.5 g/dL 04/18/2020 7:19 AM EDT [facility] RDW 15.4(H) <=14.9 % 04/18/2020 7:19 AM EDT [facility] Platelet 276 155 - 369 x10(3)/mcL 04/18/2020 7:19 AM EDT [facility] MPV 9.6 8.8 - 12.5 fL 04/18/2020 7:19 AM EDT [facility] Blood VENOUS BLOOD / Unknown Venipuncture / Unknown 04/18/2020 7:01 AM EDT 04/18/2020 7:01 AM EDT Regan Butts MD HEMATOLOGY ORDERABLES Final R esult [facility] [address] [facility] , [place] [address] * BASIC METABOLIC PANEL (04/18/2020 7:01 AM EDT) Sodium 139 136 - 145 mmol/L 04/18/2020 7:31 AM EDT [facility] Potassium 4.1 3.5 - 5.0 mmol/L 04/18/2020 7:31 AM EDT [facility] Chloride 103 98 - 107 mmol/L 04/18/2020 7:31 AM EDT [facility] Total CO2 25 22 - 29 mmol/L 04/18/2020 7:31 AM EDT [facility] Anion Gap 11 7 - 16 mmol/L 04/18/2020 7:31 AM EDT [facility] Calcium 9.2 8.8 - 10.4 mg/dL 04/18/2020 7:31 AM EDT [facility] Glucose Lvl 100 82 - 100 mg/dL 04/18/2020 7:31 AM EDT [facility] BUN 14 8 - 23 mg/dL 04/18/2020 7:31 AM EDT [facility] Creatinine 0.99 0.51 - 1.30 mg/dL 04/18/2020 7:31 AM EDT [facility] GFR Afr Am 70 >=60 mL/min/1.7 3 m2 04/18/2020 7:31 AM EDT [facility] GFR Non Afr Am 61 >=60 mL/min/1.7 3 m2 04/18/2020 7:31 AM EDT [facility] Comment: This [...] VENOUS BLOOD / Unknown Venipuncture / Unknown 04/18/2020 7:01 AM EDT 04/18/2020 7:01 AM EDT Regan Butts MD CHEMISTRY ORDERABLES Final Re sult [facility] [address] [facility] , [address] [place] [phone] [facility] [address] [place] [id number] * GLUCOSE METER POC (04/18/2020 5:30 AM EDT) [facility] Glucose Meter POC 87 70 - 100 mg/dL 04/18/2020 5:30 AM EDT [facility] Sample Type Capillary 04/18/2020 5:30 AM EDT [facility] Patient Status Non-Critical Patient 04/18/2020 5:30 AM EDT [facility] Blood BLOOD SPECIMEN / Unknown 04/18/2020 5:30 AM EDT 04/18/2020 5:30 AM EDT Heriberto Shirley DO POINT OF CARE TEST ORDER DICK Final Result [facility] [address] [place] [address] * (ABNORMAL) GLUCOSE METER POC (04/17/2020 11:43 PM EDT) Glucose Meter POC 105(H) 70 - 100 mg/dL 04/17/2020 11:43 PM EDT [facility] Sample Type Capillary 04/17/2020 11:43 PM EDT [facility] Patient Status Non-Critical Patient 04/17/2020 11:43 PM EDT [facility] Blood BLOOD SPECIMEN / Unknown 04/17/2020 11:43 PM EDT 04/17/2020 11:43 PM EDT Heriberto Shirley DO POINT OF CARE TEST ORDER DICK Final Result Performing Organization Address City/[facility]/[place] [address] * GLUCOSE METER POC (04/17/2020 6:29 PM EDT) Glucose Meter POC 85 70 - 100 mg/dL 04/17/2020 6:31 PM EDT [facility] Sample Type Capillary 04/17/2020 6:31 PM EDT [facility] Patient Status Non-Critical Patient 04/17/2020 6:31 PM EDT [facility] Blood BLOOD SPECIMEN / Unknown 04/17/2020 6:29 PM EDT 04/17/2020 6:31 PM EDT Heriberto Shirley DO POINT OF CARE TEST ORDER DICK Final Result [facility] [address] [place] [address] * GLUCOSE METER POC (04/17/2020 1:59 PM EDT) Glucose Meter POC 91 70 - 100 mg/dL 04/17/2020 2:00 PM EDT [facility] Sample Type Capillary 04/17/2020 2:00 PM EDT [facility] Patient Status Non-Critical Patient 04/17/2020 2:00 PM EDT [facility] Blood BLOOD SPECIMEN / Unknown 04/17/2020 1:59 PM EDT 04/17/2020 2:00 PM EDT Heriberto Shirley DO POINT OF CARE TEST ORDER DICK Final Result [facility] [address] [place], [place] [id number] * (ABNORMAL) BASIC METABOLIC PANEL (04/17/2020 9:48 AM EDT) Sodium 139 136 - 145 mmol/L 04/17/2020 10:34 AM EDT [facility] Potassium 4.1 3.5 - 5.0 mmol/L 04/17/2020 10:34 AM EDT [facility] Chloride 99 98 - 107 mmol/L 04/17/2020 10:34 AM EDT [facility] Total CO2 26 22 - 29 mmol/L 04/17/2020 10:34 AM EDT [facility] Anion Gap 14 7 - 16 mmol/L 04/17/2020 10:34 AM EDT [facility] Calcium 10.0 8.8 - 10.4 mg/dL 04/17/2020 10:34 AM EDT [facility] Glucose Lvl 102(H) 82 - 100 mg/dL 04/17/2020 10:34 AM EDT [facility] BUN 10 8 - 23 mg/dL 04/17/2020 10:34 AM EDT [facility] Creatinine 0.73 0.51 - 1.30 mg/dL 04/17/2020 10:34 AM EDT [facility] GFR Afr Am 101 >=60 mL/min/1.7 3 m2 04/17/2020 10:34 AM EDT [facility] GFR Non Afr Am 88 >=60 mL/min/1.7 3 m2 04/17/2020 10:34 AM EDT [facility] Comment: This [...] muscle mass. Blood VENOUS BLOOD / Unknown Butterfly / Unknown 04/17/2020 9:48 AM EDT 04/17/2020 10:00 AM EDT us Kamila Coughlin 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 CHEMISTRY ORDERABLES Final Res ult [facility], [address] , [place] [address] [facility] [address] [place], [place] [phone] * (ABNORMAL) CBC (04/17/2020 9:48 AM EDT) WBC 9.5 3.7 - 10.3 x10(3)/mcL 04/17/2020 10:16 AM EDT [facility] RBC 4.55 3.90 - 5.20 x10(6)/mcL 04/17/2020 10:16 AM EDT [facility] Hgb 12.2 11.2 - 15.7 g/dL 04/17/2020 10:16 AM EDT [facility] Hct 39.7 34.0 - 45.0 % 04/17/2020 10:16 AM EDT [facility] MCV 87.3 80.0 - 100.0 fL 04/17/2020 10:16 AM EDT [facility] MCH 26.8 26.0 - 34.0 pg 04/17/2020 10:16 AM EDT [facility] MCHC 30.7 30.7 - 35.5 g/dL 04/17/2020 10:16 AM EDT [facility] RDW 15.1(H) <=14.9 % 04/17/2020 10:16 AM EDT [facility] Platelet 265 155 - 369 x10(3)/mcL 04/17/2020 10:16 AM EDT [facility] MPV 9.5 8.8 - 12.5 fL 04/17/2020 10:16 AM EDT [facility] Blood VENOUS BLOOD / Unknown Venipuncture / Unknown 04/17/2020 9:48 AM EDT 04/17/2020 10:00 AM EDT us Kamila Coughlin 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 HEMATOLOGY ORDERABLES Final Re sult [facility] [address] [facility] , [place] [address] documented in this encounter Visit Diagnoses Diagnosis Ventral hernia- Primary Ventral hernia, unspecified, without mention of obstruction or gangrene Preop testing Preoperative examination, unspecified Essential hypertension Unspecified essential hypertension Ventral hernia without obstruction or gangrene Ventral hernia, unspecified, without mention of obstruction or gangrene Obesity, Class III, BMI 40-49.9 (morbid obesity) (HCC) Morbid obesity Type 2 diabetes mellitus without complication (HCC) Incisional hernia, incarcerated Incisional hernia with obstruction documented in this encounter Administered Medications Inactive Administered Medications - up to 1 most recent administrations Medication Order MAR Action Action Date Dose Rate Site 0.9 % NaCl infusion Intravenous, at 100 mL/hr, CONTINUOUS, Starting on 04/17/20 at 1600, Until 04/19/20 at 1559 Rate/Dose Verify 04/19/2020 3:39 PM EDT 100 mL/hr 0.9 % NaCl infusion Intravenous, at 50 mL/hr, CONTINUOUS, Starting on 04/22/20 at 0230, Until 04/23/20 at 0229 Rate/Dose Verify 04/23/2020 7:45 AM EDT 50 mL/hr 0.9 % NaCl infusion Intravenous, at 50 mL/hr, CONTINUOUS, Starting on 04/23/20 at 0445, Until 04/24/20 at 0444 Rate/Dose Verify 04/23/2020 7:22 PM EDT 50 mL/hr 0.9 % NaCl infusion Intravenous, at 50 mL/hr, CONTINUOUS, Starting on Fri04/24/20 at 1445, Until Fri04/26/20 at 0951 Rate/Dose Verify 2020 7:30 AM EDT 50 mL/hr acetaminophen (OFIRMEV) infusion 1,000 mg 1,000 mg, Intravenous, EVERY 6 HOURS PRN, Starting on Fri04/16/20 at 2326, Until Fri04/17/20 at 2325, Pain, For Mild to Moderate Pain if oral route not available, Administer over 15 Minutes, Maximum adult dose of acetaminophen is 4000 mg from all sources in 24 hours. IV Started 04/17/2020 10:55 PM EDT 1,000 mg 400 mL/hr acetaminophen (OFIRMEV) infusion 1,000 mg 1,000 mg, Intravenous, PREPROCEDURE, 1 dose, Starting on Fri04/18/20 at 1054, Until Fri04/18/20 at 1707, Coanalgesic, Administer over 15 Minutes, Do not give if patient received acetaminophen within the last 6 hours Maximum adult dose of acetaminophen is 4000 mg from all sources in 24 hours. , Pre-op (Holding/SDS Meds) IV Started 04/18/2020 4:52 PM EDT 1,000 mg 400 mL/hr acetaminophen (TYLENOL) suppository 650 mg 650 mg, Rectal, EVERY 4 HOURS PRN, Starting on Fri04/16/20 at 2326, Until 04/29/20 at 0046, Fever, Headaches, Maximum adult dose of acetaminophen is 4000 mg from all sources in 24 hours. acetaminophen (TYLENOL) tablet 650 mg 650 mg, Oral, EVERY 4 HOURS PRN, Starting on Fri04/16/20 at 2326, Until 04/29/20 at 0046, Fever, Headaches, Maximum adult dose of acetaminophen is 4000 mg from all sources in 24 hours. Given 04/23/2020 12:58 PM EDT 650 mg amLODIPine (NORVASC) tablet 10 mg 10 mg, Oral, DAILY, First dose on Fri04/17/20 at 0900, Until Discontinued Given 04/24/2020 8:17 AM EDT 10 mg atorvastatin (LIPITOR) tablet 20 mg 20 mg, Oral, NIGHTLY, First dose on Fri04/17/20 at 0045, Until Discontinued Given 04/27/2020 8:46 PM EDT 20 mg benzocaine-menthoL (CEPACOL SORE THROAT) 15-3.6 mg 1 Lozenge 1 Lozenge, Oral, EVERY 2 HOURS PRN, Starting on Fri04/19/20 at 1304, Until 04/29/20 at 0046, Sore Throat, Waste Sort Code = BKC Given 2020 10:21 PM EDT 1 Lozenge ceFOXItin (MEFOXIN) 2 g in dextrose 5% 50 mL IVPB 2 g, Intravenous, at 100 mL/hr, ONCE, 1 dose, On Fri04/18/20 at 2345 IV Started 04/19/2020 12:52 AM EDT 2 g 100 mL/hr dextrose 5 % and 0.9 % NaCl infusion Intravenous, at 125 mL/hr, CONTINUOUS, Starting on Fri04/17/20 at 0830, Until Fri04/17/20 at 1313 Rate/Dose Verify 04/17/2020 4:06 PM EDT 125 mL/hr dextrose 50 % solution 25 mL 25 mL, Intravenous, PRN, Starting on Fri04/17/20 at 1310, Until 04/29/20 at 0046, Low blood sugar, If FSBS less than 70 mg/dl and patient cannot take orally, Check FSBS every 30 minutes and repeat 25 mL of D50 IV push and notify physician if FSBS less than 70 mg/dL VESICANT docusate sodium (COLACE) capsule 100 mg 100 mg, Oral, 2 TIMES DAILY, First dose on Fri04/24/20 at 1445, Until Discontinued, Do not crush or chew. Given 04/28/2020 9:07 AM EDT 100 mg enoxaparin (LOVENOX) injection 40 mg 40 mg, Subcutaneous, DAILY - LMWH/Xa, First dose on Fri04/19/20 at 0900, Until Discontinued Given 04/28/2020 11:29 AM EDT 40 mg Abdominal Tissue fentaNYL (SUBLIMAZE) injection 25 mcg 25 mcg, Intravenous, EVERY 5 MIN PRN, 4 doses, Starting on Fri04/18/20 at 2124, Until Fri04/18/20 at 2212, Pain, For initial pain. Maximum dose not to exceed 100 mcg., PACU Given 04/18/2020 10:12 PM EDT 25 mcg glucagon (human recombinant) (GLUCAGEN) injection 1 mg 1 mg, Intramuscular, PRN, Starting on Fri04/17/20 at 1310, Until 04/29/20 at 0046, Low blood sugar, If FSBS less than 70 mg/dl, patient cannot take orally and without IV access, If patient is without IV access, give Glucagon 1 mg Intramuscularly, insert IV and call physician. insulin aspart U-100 (NovoLOG) injection 1-10 Units 1-10 Units, Subcutaneous, EVERY 6 HOURS SCHEDULED (4 times per day), First dose (after last modification) on Fri04/17/20 at 1800, Until Discontinued, Medium dose algorithm: FSBS Correction NPO/Bedtime 121-149 1 units 0 units 150-199 2 units 1 units 200-250 4 units 2 units 251-300 6 units 3 units 301-350 8 units 4 units Greater than 350__10 units call MD _5 units call MD Notify physician if FSBS less than 50 or greater than 350. Do not use NPO dosing If patient receiving TPN or tube feeds. Correction insulin doses must be by at least 3 hours. Waste Sort Code = BKC Given 04/19/2020 5:53 PM EDT 2 Units Right Arm insulin aspart U-100 (NovoLOG) injection 1-10 Units 1-10 Units, Subcutaneous, 4 TIMES DAILY WITH MEALS, First dose (after last modification) on Fri04/19/20 at 2100, Until Discontinued, Medium dose algorithm: FSBS Correction NPO/Bedtime 121-149 1 units 0 units 150-199 2 units 1 units 200-250 4 units 2 units 251-300 6 units 3 units 301-350 8 units 4 units Greater than 350__10 units call MD _5 units call MD Notify physician if FSBS less than 50 or greater than 350. Do not use NPO dosing If patient receiving TPN or tube feeds. Correction insulin doses must be by at least 3 hours. Waste Sort Code = BKC Given 04/20/2020 5:32 PM EDT 1 Units Right Arm insulin aspart U-100 (NovoLOG) injection 1-10 Units 1-10 Units, Subcutaneous, 4 TIMES DAILY WITH MEALS, First dose (after last modification) on Fri04/26/20 at 2100, Until Discontinued, Medium dose algorithm: FSBS Correction NPO/Bedtime 121-149 1 units 0 units 150-199 2 units 1 units 200-250 4 units 2 units 251-300 6 units 3 units 301-350 8 units 4 units Greater than 350__10 units call MD _5 units call MD Notify physician if FSBS less than 50 or greater than 350. Do not use NPO dosing If patient receiving TPN or tube feeds. Correction insulin doses must be by at least 3 hours. Waste Sort Code = BKC Given 04/28/2020 11:40 AM EDT 1 Units Right Arm lactated ringers infusion Intravenous, at 100 mL/hr, PREPROCEDURE CONTINUOUS, Starting on Fri04/18/20 at 1054, Until Fri04/18/20 at 2336, To be given in SDS/Pre-op Holding Area, Pre-op (Holding/SDS Meds) New Bag 04/18/2020 7:51 PM EDT lidocaine (XYLOCAINE) 2 % viscous solution 10 mL 10 mL, Mouth/Throat, PRN, Starting on Fri04/21/20 at 0713, Until 04/29/20 at 0046, Pain lisinopriL (PRINIVIL;ZESTril) tablet 20 mg 20 mg, Oral, DAILY, First dose on Fri04/17/20 at 0900, Until Discontinued, +++ACEI Medication+++ Given 04/24/2020 8:17 AM EDT 20 mg loratadine (CLARITIN) tablet 10 mg 10 mg, Oral, DAILY, First dose on Fri04/17/20 at 0900, Until Discontinued Given 04/28/2020 9:07 AM EDT 10 mg miconazole (MICATIN) 2 % powder Topical, EVERY 12 HOURS SCHEDULED (2 times per day), 84 doses, First dose on Fri04/17/20 at 0930, Last dose on Fri05/28/20 at 2100, Application site: skin folds Given 04/28/2020 9:08 AM EDT miconazole (MICATIN) 2 % powder Topical, PRN, Starting on Fri04/17/20 at 0915, Until 04/29/20 at 0046, Wound Care, Application site: skin folds morphine injection 2 mg 2 mg, Intravenous, EVERY 10 MIN PRN, Starting on Tu04/18/20 at 2124, Until Tu04/18/20 at 2325, Breakthrough Pain, Do not exceed 20 mg in one hour unless otherwise ordered by the Anesthesia Coordinator For pain unrelieved by fentanyl or oral opioid, PACU Given 04/18/2020 10:42 PM EDT 2 mg morphine injection 4 mg 4 mg, Intravenous, EVERY 4 HOURS PRN, Starting on 04/16/20 at 2326, Until 04/29/20 at 0046, More Severe Pain, Begin with lowest dose unless otherwise directed. Reassess pain in 15 minutes. If pain unrelieved, remainder of dose may be given to patient. Given 04/21/2020 4:10 PM EDT 4 mg morphine injection 8 mg 8 mg, Intravenous, EVERY 4 HOURS PRN, Starting on 04/16/20 at 2326, Until 04/29/20 at 0046, More Severe Pain, Begin with lowest dose unless otherwise directed. Reassess pain in 15 minutes. If pain unrelieved, remainder of dose may be given to patient. ondansetron (ZOFRAN) injection 4 mg 4 mg, Intravenous, EVERY 6 HOURS PRN, Starting on 04/16/20 at 2326, Until 04/29/20 at 0046, Nausea, Given 04/21/2020 2:27 PM EDT 4 mg ondansetron (ZOFRAN) tablet 4 mg 4 mg, Oral, EVERY 6 HOURS PRN, Starting on Fri04/16/20 at 2326, Until 04/29/20 at 0046, Nausea Given 04/23/2020 5:02 PM EDT 4 mg oxybutynin (DITROPAN) tablet 5 mg 5 mg, Oral, 2 TIMES DAILY, First dose on Fri04/17/20 at 0045, Until Discontinued, Therapeutic Interchange for oxybutynin XL 10mg tab Daily Given 04/28/2020 9:07 AM EDT 5 mg oxyCODONE (ROXICODONE) immediate release tablet 5-10 mg 5-10 mg, Oral, EVERY 4 HOURS PRN, Starting on Fri04/18/20 at 2336, Until 04/29/20 at 0046, Pain Unrelieved by Oral Non-Opioid Therapy Given 04/28/2020 5:10 PM EDT 5 mg pantoprazole (PROTONIX) tablet 40 mg 40 mg, Oral, DAILY, First dose on Fri04/17/20 at 0900, Until Discontinued, Therapeutic Interchange for omeprazole (Prilosec) 20mg cap daily Given 04/28/2020 9:07 AM EDT 40 mg phenol (CHLORASEPTIC) 1.4 % oral spray 1 [place] 1 [place], Oral, EVERY 2 HOURS PRN, Starting on Fri04/19/20 at 1304, Until 04/29/20 at 0046, Sore Throat Given 04/23/2020 9:48 AM EDT 1 [place] polyethylene glycol (GLYCOLAX, MIRALAX) packet 17 g 17 g, Oral, 2 TIMES DAILY, First dose on Fri04/24/20 at 1445, Until Discontinued, Mix in 8 oz of water Given 04/27/2020 8:46 PM EDT 17 g scopolamine (TRANSDERM-SCOP) 1 mg over 3 days 1 Patch 1 Patch, Transdermal, ONCE PREPROCEDURE, 1 dose, On Fri04/18/20 at 1100, Place patch behind ear. Remove in 24 hours. To be given in SDS/Pre-op Holding Area. Transderm-Scop 1.5mg patch delivers scopolamine 1 mg per 72 hours, Administer over 24 Hours, Pre-op (Holding/SDS Meds) Patch Applied 04/18/2020 4:51 PM EDT 1 Patch Right Ear sterile water injection 1 mL 1 mL, Injection, PRN, Starting on Fri04/17/20 at 1310, Until 04/29/20 at 0046, Use for drug dilution, Use to dilute and administer glucagon injection documented in this encounter Discontinued Medications Medication Sig Discontinue Reason Start Date End Da te ASPIRIN LOW DOSE 81 mg Oral Tablet, Delayed Release (E.C.) TAKE 1 TABLET BY MOUTH DAILY Removed During Admission Medication Review 09/14/2019 04/16/2020 omeprazole (PRILOSEC) 40 mg Oral Capsule, Delayed Release(E.C.)Indication s:Gastroesophageal reflux disease with esophagitis Take 1 Cap by mouth every morning (before breakfast). Removed During Admission Medication Review 06/24/2019 04/16/2020 naproxen sodium (ANAPROX) 220 mg Oral Tablet Take 1 Tab by mouth 2 times daily (with meals). Stop Taking at Discharge 09/14/2019 04/28/2020 documented as of this encounter Active and Recently Administered Medications Times are shown in EDT. Scheduled Medication Order 2020 04/27/2020 04/28/2020 atorvastatin (LIPITOR) tablet 20 mg 20 mg, Oral, NIGHTLY, First dose on Fri04/17/20 at 0045, Until Discontinued 2219 (Given - Provider: Felipa Kraus RN) 2045 (Given - Provider: Nikkie Montenegro, MATT) docusate sodium (COLACE) capsule 100 mg 100 mg, Oral, 2 TIMES DAILY, First dose on Fri04/24/20 at 1445, Until Discontinued, Do not crush or chew. 0829 (Given - Provider: Angela Cabrera RN)2220 (Given - Provider: Felipa Kraus RN) 0845 (Given - Provider: Angela Cabrera, MATT)204 (Given - Provider: Nikkie Montenegro RN) 0907 (Given - Provider: Christiana Taylor RN) enoxaparin (LOVENOX) injection 40 mg 40 mg, Subcutaneous, DAILY - LMWH/Xa, First dose on Fri04/19/20 at 0900, Until Discontinued 1310 (Given - Provider: Angela Cabrera RN) 1311 (Given - Provider: Angela Cabrera RN) 1129 (Given - Provider: Christiana Taylor, MATT) insulin aspart U-100 (NovoLOG) injection 1-10 Units 1-10 Units, Subcutaneous, 4 TIMES DAILY WITH MEALS, First dose (after last modification) on Fri04/26/20 at 2100, Until Discontinued, Medium dose algorithm: FSBS Correction NPO/Bedtime 121-149 1 units 0 units 150-199 2 units 1 units 200-250 4 units 2 units 251-300 6 units 3 units 301-350 8 units 4 units Greater than 350__10 units call MD _5 units call MD Notify physician if FSBS less than 50 or greater than 350. Do not use NPO dosing If patient receiving TPN or tube feeds. Correction insulin doses must be by at least 3 hours. Waste Sort Code = BK 2210 (Not Given - Provider: Felipa Kraus RN - Reason: Contraindicated) 0845 (Given - Provider: Angela Cabrera RN)1309 (Not Given - Provider: Angela Cabrera RN - Reason: Order parameters not met)1848 (Not Given - Provider: Ana Temple RN - Reason: Order parameters not met)2114 (Not Given - Provider: Nikkie Montenegro RN - Reason: Contraindicated) 0807 (Given - Provider: Chritsiana Taylor RN - Comment: FSBS 131)1140 (Given - Provider: Christiana Taylor RN - Comment: FSBS [phone] (Not Given - Provider: Christiana Taylor RN - Reason: Other - Comment: patient being discharged) loratadine (CLARITIN) tablet 10 mg 10 mg, Oral, DAILY, First dose on Fri04/17/20 at 0900, Until Discontinued 0829 (Given - Provider: Angela Cabrera RN) 0845 (Given - Provider: Angela Cabrera RN) 0907 (Given - Provider: Christiana Taylor RN) miconazole (MICATIN) 2 % powder Topical, EVERY 12 HOURS SCHEDULED (2 times per day), 84 doses, First dose on Fri04/17/20 at 0930, Last dose on Fri05/28/20 at 2100, Application site: skin folds 0831 (Given - Provider: Angela Cabrera RN)222 (Given - Provider: Felipa Kraus RN) 08 (Given - Provider: Angela Cabrera RN)2047 (Given - Provider: Nikkie Montenegro RN) 09 (Given - Provider: Christiana Taylor RN) oxybutynin (DITROPAN) tablet 5 mg 5 mg, Oral, 2 TIMES DAILY, First dose on Fri04/17/20 at 0045, Until Discontinued, Therapeutic Interchange for oxybutynin XL 10mg tab Daily 08 (Given - Provider: Angela Cabrera RN)2219 (Given - Provider: Felipa Kraus RN) 08 (Given - Provider: Angela Cabrera RN)2045 (Given - Provider: Nikkie Montenegro RN) 09 (Given - Provider: Christiana Taylor RN) pantoprazole (PROTONIX) tablet 40 mg 40 mg, Oral, DAILY, First dose on Fri04/17/20 at 0900, Until Discontinued, Therapeutic Interchange for omeprazole (Prilosec) 20mg cap daily 08 (Given - Provider: Angela Cabrera RN) 08 (Given - Provider: Angela Cabrera RN) 09 (Given - Provider: Christiana Taylor RN) polyethylene glycol (GLYCOLAX, MIRALAX) packet 17 g 17 g, Oral, 2 TIMES DAILY, First dose on Fri04/24/20 at 1445, Until Discontinued, Mix in 8 oz of water 08 (Given - Provider: Angela Cabrera RN)2219 (Given - Provider: Felipa Kraus RN) 08 (Given - Provider: Angela Cabrera RN)2045 (Given - Provider: Nikkie Montenegro RN) 09 (Not Given - Provider: Christiana Taylor RN - Reason: Patient Declined) Continuous Medication Order 2020 04/27/2020 04/28/2020 0.9 % NaCl infusion (CANCELED) Intravenous, at 50 mL/hr, CONTINUOUS, Starting on Fri04/24/20 at 1445, Until 04/26/20 at 0951 0007 (Rate/Dose Verify - Provider: Felipa Kraus RN)0730 (Rate/Dose Verify - Provider: Angela Cabrera RN)1022 (Stopped - Provider: Angela Cabrera RN) PRN Medication Order 2020 04/27/2020 04/28/2020 acetaminophen (TYLENOL) suppository 650 mg(Linked Group 1) 650 mg, Rectal, EVERY 4 HOURS PRN, Starting on 04/16/20 at 2326, Until 04/29/20 at 0046, Fever, Headaches, Maximum adult dose of acetaminophen is 4000 mg from all sources in 24 hours. acetaminophen (TYLENOL) tablet 650 mg(Linked Group 1) 650 mg, Oral, EVERY 4 HOURS PRN, Starting on 04/16/20 at 2326, Until 04/29/20 at 0046, Fever, Headaches, Maximum adult dose of acetaminophen is 4000 mg from all sources in 24 hours. benzocaine-menthoL (CEPACOL SORE THROAT) 15-3.6 mg 1 Lozenge(Linked Group 2) 1 Lozenge, Oral, EVERY 2 HOURS PRN, Starting on Fri04/19/20 at 1304, Until 04/29/20 at 0046, Sore Throat, Waste Sort Code = BKC 0242 (Given - Provider: Feliap Kraus RN)1435 (Given - Provider: Angela Cabrera RN)2221 (Given - Provider: Felipa Kraus RN) dextrose 50 % solution 25 mL 25 mL, Intravenous, PRN, Starting on Fri04/17/20 at 1310, Until 04/29/20 at 0046, Low blood sugar, If FSBS less than 70 mg/dl and patient cannot take orally, Check FSBS every 30 minutes and repeat 25 mL of D50 IV push and notify physician if FSBS less than 70 mg/dL VESICANT glucagon (human recombinant) (GLUCAGEN) injection 1 mg(Linked Group 3) 1 mg, Intramuscular, PRN, Starting on Fri04/17/20 at 1310, Until 04/29/20 at 0046, Low blood sugar, If FSBS less than 70 mg/dl, patient cannot take orally and without IV access, If patient is without IV access, give Glucagon 1 mg Intramuscularly, insert IV and call physician. lidocaine (XYLOCAINE) 2 % viscous solution 10 mL 10 mL, Mouth/Throat, PRN, Starting on Fri04/21/20 at 0713, Until 04/29/20 at 0046, Pain miconazole (MICATIN) 2 % powder Topical, PRN, Starting on 04/17/20 at 0915, Until 04/29/20 at 0046, Wound Care, Application site: skin folds morphine injection 4 mg(Linked Group 4) 4 mg, Intravenous, EVERY 4 HOURS PRN, Starting on 04/16/20 at 2326, Until 04/29/20 at 0046, More Severe Pain, Begin with lowest dose unless otherwise directed. Reassess pain in 15 minutes. If pain unrelieved, remainder of dose may be given to patient. morphine injection 8 mg(Linked Group 4) 8 mg, Intravenous, EVERY 4 HOURS PRN, Starting on Fri04/16/20 at 2326, Until 04/29/20 at 0046, More Severe Pain, Begin with lowest dose unless otherwise directed. Reassess pain in 15 minutes. If pain unrelieved, remainder of dose may be given to patient. ondansetron (ZOFRAN) injection 4 mg(Linked Group 5) 4 mg, Intravenous, EVERY 6 HOURS PRN, Starting on 04/16/20 at 2326, Until 04/29/20 at 0046, Nausea, ondansetron (ZOFRAN) tablet 4 mg(Linked Group 5) 4 mg, Oral, EVERY 6 HOURS PRN, Starting on Fri04/16/20 at 2326, Until 04/29/20 at 0046, Nausea oxyCODONE (ROXICODONE) immediate release tablet 5-10 mg 5-10 mg, Oral, EVERY 4 HOURS PRN, Starting on Fri04/18/20 at 2336, Until 04/29/20 at 0046, Pain Unrelieved by Oral Non-Opioid Therapy 0242 (Given - Provider: Felipa Kraus RN)0829 (Given - Provider: Angela Cabrera RN)1310 (Given - Provider: Angela Cabrera RN)2221 (Given - Provider: Felipa Kraus RN) 0909 (Given - Provider: Angela Cabrera RN)1311 (Given - Provider: Angela Cabrera RN)2046 (Given - Provider: Nikkie Montenegro, RN) 0308 (Given - Provider: Nikkie Montenegro RN)0911 (Given - Provider: Christiana Taylor, RN)1710 (Given - Provider: Christiana Taylor, RN) phenol (CHLORASEPTIC) 1.4 % oral spray 1 [place](Linked Group 2) 1 [place], Oral, EVERY 2 HOURS PRN, Starting on Fri04/19/20 at 1304, Until 04/29/20 at 0046, Sore Throat 0242 (See Alternative - Provider: Felipa Kraus RN)1435 (See Alternative - Provider: Angela Cabrera RN)2221 (See Alternative - Provider: Felipa Kraus RN) sterile water injection 1 mL(Linked Group 3) 1 mL, Injection, PRN, Starting on 04/17/20 at 1310, Until 04/29/20 at 0046, Use for drug dilution, Use to dilute and administer glucagon injection Linked Groups Order Group 1: acetaminophen (TYLENOL) tablet 650 mgJump to med 650 mg, Oral, EVERY 4 HOURS PRN, Starting on 04/16/20 at 2326, Until 04/29/20 at 0046, Fever, Headaches, Maximum adult dose of acetaminophen is 4000 mg from all sources in 24 hours. Or acetaminophen (TYLENOL) suppository 650 mgJump to med 650 mg, Rectal, EVERY 4 HOURS PRN, Starting on 04/16/20 at 2326, Until 04/29/20 at 0046, Fever, Headaches, Maximum adult dose of acetaminophen is 4000 mg from all sources in 24 hours. Group 2: phenol (CHLORASEPTIC) 1.4 % oral spray 1 SprayJump to med 1 [place], Oral, EVERY 2 HOURS PRN, Starting on Fri04/19/20 at 1304, Until 04/29/20 at 0046, Sore Throat Or benzocaine-menthoL (CEPACOL SORE THROAT) 15-3.6 mg 1 LozengeJump to med 1 Lozenge, Oral, EVERY 2 HOURS PRN, Starting on Fri04/19/20 at 1304, Until 04/29/20 at 0046, Sore Throat, Waste Sort Code = BKC Group 3: glucagon (human recombinant) (GLUCAGEN) injection 1 mgJump to med 1 mg, Intramuscular, PRN, Starting on 04/17/20 at 1310, Until 04/29/20 at 0046, Low blood sugar, If FSBS less than 70 mg/dl, patient cannot take orally and without IV access, If patient is without IV access, give Glucagon 1 mg Intramuscularly, insert IV and call physician. And sterile water injection 1 mLJump to med 1 mL, Injection, PRN, Starting on 04/17/20 at 1310, Until 04/29/20 at 0046, Use for drug dilution, Use to dilute and administer glucagon injection Group 4: morphine injection 4 mgJump to med 4 mg, Intravenous, EVERY 4 HOURS PRN, Starting on 04/16/20 at 2326, Until 04/29/20 at 0046, More Severe Pain, Begin with lowest dose unless otherwise directed. Reassess pain in 15 minutes. If pain unrelieved, remainder of dose may be given to patient. Or morphine injection 8 mgJump to med 8 mg, Intravenous, EVERY 4 HOURS PRN, Starting on 04/16/20 at 2326, Until 04/29/20 at 0046, More Severe Pain, Begin with lowest dose unless otherwise directed. Reassess pain in 15 minutes. If pain unrelieved, remainder of dose may be given to patient. Group 5: ondansetron (ZOFRAN) tablet 4 mgJump to med 4 mg, Oral, EVERY 6 HOURS PRN, Starting on 04/16/20 at 2326, Until 04/29/20 at 0046, Nausea Or ondansetron (ZOFRAN) injection 4 mgJump to med 4 mg, Intravenous, EVERY 6 HOURS PRN, Starting on 04/16/20 at 2326, Until 04/29/20 at 0046, Nausea, documented in this encounter Orders Medications Ordered That Edwin ht Not Have Been Administered Count Last Ordered Date First Ordered Date insulin aspart U-100 (NovoLO G) injection 1-10 Units 2 04/22/2020 04/17/2020 lidocaine (XYLOCAINE) 2 % vi scous solution 10 mL 1 04/21/2020 sodium chloride flush 1 04/19/2020 bupivacaine-EPINEPHrine 0.5 %-1:200,000 injection 1 04/18/2020 ceFOXItin (MEFOXIN) 2 g in d extrose 5% 50 mL IVPB 1 04/18/2020 dimenhyDRINATE (DRAMAMINE) i njection 12.5-25 mg 1 04/18/2020 ondansetron (ZOFRAN) injection 4 mg 1 04/18 ondansetron (ZOFRAN-ODT) dis integrating tablet 8 mg 1 04/18/2020 oxyCODONE (ROXICODONE) immed iate release tablet 5 mg 1 04/18/2020 promethazine (PHENERGAN) 12. 5 mg in sodium chloride 10 mL injection 1 04/18/2020 promethazine (PHENERGAN) 6.2 5 mg in sodium chloride 10 mL injection 1 04/18/2020 dextrose 5 % and 0.9 % NaCl infusion 1 04/08 dextrose 50 % solution 25 mL 1 04/17/2020 glucagon (human recombinant) (GLUCAGEN) injection 1 mg 1 04/17/2020 miconazole (MICATIN) 2 % powder 1 0 sterile water injection 1 mL 1 04/17/2020 acetaminophen (TYLENOL) suppository 650 mg 1 04/16/2020 morphine injection 8 mg 1 04/16/2020 Nursing Count Last Ordered Date First Orde red Date NASOGASTRIC TUBE INSERTION 1 04/21/2020 NASOGASTRIC TUBE MAINTENANCE 1 04/21/2020 NURSING COMMUNICATION 1 04/21/2020 Consult Count Last Ordered Date First Orde red Date IP CONSULT TO GENERAL SURGERY 1 04/16/2020 OT Count Last Ordered Date First Orde red Date OT EVAL AND TREAT 1 04/21/2020 PT Count Last Ordered Date First Orde red Date IP CONSULT TO PHYSICAL THERAPY 2 04/23/2020 04/19/2020 Admission Count Last Ordered Date First Orde red Date ADMIT 1 04/16/2020 Discharge Count Last Ordered Date First Orde red Date DISCHARGE PATIENT 1 04/28/2020 documented in this encounter Care Teams Sanitary Inspector Relationship Specialty Start Date End Date Cristiane Pop MD [address] [place] [address] PCP - General Family Medicine 08/20/18 12/29/23 Garett Holt MD Internal Medicine-Gastroenterology 12/22/12 Ruiz Stokes MD [address] [place] [address] Internal Medicine-Cardiovascular Disease 07/25/14 Yenny Schwab MD [address] [place] [address] Internal Medicine-Rheumatology 12/11/16 documented as of this encounter
--- OUTSIDE RECORDS SUMMARY | 2024-07-22 16:08 | XMS_ITS | Encounter Summary ---
Author [place] [address] Care Team Providers Care Lymphedema Therapist Name Role Phone Garett Holt MD Unavailable [phone] Ruiz Stokes MD Unavailable [phone] Yenny Schwab MD Unavailable [phone] Cristiane Shirley MD Primary Care Provider Reason for Visit * Reason Comments Medication Refill Encounter Details Date Type Department Care Team (Late st Contact Info) Description 12/14/2019 Refill [facility] [address] [place] [address] Cristiane Shirley MD [address] [place] [address] Medication Refill Social History Tobacco Use Types Packs/Day Years Used Date Smoking Tobacco: Former Cigarettes 1.5 35 0 01/24/1972 - 01/24/1984 Smokeless Tobacco: Never [...] daily (with breakfast). 63 Tab 2 12/15/2019 05/03/2020 lisinopriL (PRINIVIL;ZESTRIL) 20 mg Oral Tablet tabletIndications: Essential hypertension Take 1 Tab by mouth daily. 63 Tab 2 12/15/2019 05/03/2020 atorvastatin (LIPITOR) 20 mg Oral Tablet TAKE 1 TABLET BY MOUTH EVERY DAY 90 Tab 1 12/15/2019 05/03/2020 amLODIPine (NORVASC) 10 mg Oral TabletIndications: Essential hypertension Take 1 Tab by mouth daily. 63 Tab 2 12/15/2019 05/03/2020 documented in this encounter Miscellaneous Notes * Telephone Encounter - Miranda Christina CPhT - 12/15/2019 8:32 AM EDT Atorvastatin- Medication refill requested too soon. Refill request denied. Refills sent on 09/14/19. Refills available for transfer from another pharmacy. Patient notified via MyChart (if MyChart active). Amlodipine- Medication refill requested too soon. Refill request denied. Refills sent on 09/14/19. Refills available for transfer from another pharmacy. Patient notified via MyChart (if MyChart active). Lisinopril- Medication refill requested too soon. Refill request denied. Refills sent on 09/14/19. Refills available for transfer from another pharmacy. Patient notified via MyChart (if MyChart active). Metformin- Medication refill requested too soon. Refill request denied. Refills sent on 09/14/19. Refills available for transfer from another pharmacy. Patient notified via MyChart (if MyChart active). documented in this encounter Plan of Treatment Upcoming Encounters Date Type Department Care Team (Late st Contact Info) Description 07/29/2024 9:00 AM EST Appointment [facility] [address] [place] [address] Jomar Kim MD [address] [place] [address] documented as of this encounter Goals Goal Patient Goal Type Associated Problems Recent Progress Patient-Stated? Author Blood Pressure < 140/90 Blood Pressure 110/72(04/27 2:44 PM EDT) No Rachel Rogers RMA BMI (Calculated) < 30 General 50.9( 2:44 PM EDT) No Rachel Rogers RMA Eat better, exercise, reach an ideal body weight General No Ni Clinton, bottom turning lathe turner Healing General On track(2018 9:18 AM EDT) [...] neuropathy weekly. ?? Refer to PCP and/or Aerobics Teacher, Vascular Specialist as indicated. ?? Monitor [...] hypertension Take 1 Tab by mouth daily. Reorder 09/14/2019 12/15/2019 atorvastatin (LIPITOR) 20 mg Oral Tablet TAKE 1 TABLET BY MOUTH EVERY DAY Reorder 09/14/2019 12/15/2019 lisinopril (PRINIVIL;ZESTRIL) 20 mg Oral Tablet tabletIndications:Essenti al hypertension Take 1 Tab by mouth daily. Reorder 09/14/2019 12/15/2019 metFORMIN (GLUCOPHAGE) 500 mg Oral Tablet Take 1 Tab by mouth daily (with breakfast). Reorder 09/14/2019 12/15/2019 documented as of this encounter Care Teams Lymphedema Therapist Relationship Specialty Start Date End Date Cristiane Shirley MD [address] [place] [id number] PCP - General Family Medicine 08/20/18 12/29/23 Garett Holt MD Internal Medicine-Gastroenterology 12/22/12 Ruiz Stokes MD [address] [place] [address] Internal Medicine-Cardiovascular Disease 07/25/14 Yenny Schwab MD [address] [facility] [address] [place] [address] Internal Medicine-Rheumatology 12/11/16 documented as of this encounter
--- OUTSIDE RECORDS SUMMARY | 2024-07-22 16:08 | XMS_ITS | Encounter Summary ---
Author Organization [facility] [place] [address] Care Team Providers Care Woods Laborer Name Role Phone Garett Holt MD Unavailable [phone] Ruiz Stokes MD Unavailable [phone] Yenny Schwab MD Unavailable [phone] Cristiane Shirley MD Primary Care Provider [phone] Encounter Details Date Type Department Care Team (Latest Contact Info) Description 04/16/2020 Travel Social History Tobacco Use Types Packs/Day [...] No 09/14/2019 10:05 AM EST MorganBrynn MULU documented as of this encounter Mental [...] 9:00 AM EST Appointment [facility] [address] [place] [address] Jomar Kim MD [address] [place], [...] weight General No Ni Clinton, director of guidance Healing General On track(2018 9:18 AM EDT) [...] neuropathy weekly. ?? Refer to PCP and/or Administrative Clerk, Vascular Specialist as indicated. ?? Monitor patient compliance with wound care, diabetes management and proper offloading. Stay Tobacco Free Lifestyle On track(2020 10:23 AM EDT) No Wendy Espinoza LPN HEMOGLOBIN A1C < 7.0 Result Component 5.6(11/09/19 3:04 PM EST) No Rachel Rogers RMA documented as of this encounter Visit Diagnoses Not on filedocumented in this encounter Care Teams Woods Laborer Relationship Specialty Start Date End Date Cristiane Shirley MD [address] [place] [address] PCP - General Family Medicine 08/20/18 12/29/23 Garett Holt MD Internal Medicine-Gastroenterology 12/22/12 Ruiz Stokes MD [address] [place] [address] Internal Medicine-Cardiovascular Disease 07/25/14 Yenny Schwab MD [address] [facility] [address] [place], [place] [id number] Internal Medicine-Rheumatology 12/11/16 documented as of this encounter
--- OUTSIDE RECORDS SUMMARY | 2024-07-22 16:08 | XMS_ITS | Encounter Summary ---
Author Organization [place] [address] Care Team Providers Care Bilingual Customer Service Name Role Phone Garett Holt MD Unavailable [phone] Ruiz Stokes MD Unavailable [phone] Yenny Schwab MD Unavailable [phone] Cristiane Shirley MD Primary Care Provider [phone] Reason for Visit * Reason Onset Date Comments Central Patient Navigator Outreach 04/04/2020 Encounter Details Date Type Department Care Team (Late st Contact Info) Description 04/04/2020 Patient Outreach [facility] [address] [place] [address] Cristiane Shirley MD [address] [place] [address] Central Patient Navigator Outreach Social History Tobacco Use Types Packs/Day [...] documented in this encounter Progress Notes * Yamini Reece RN - 04/04/2020 2:15 PM EDT Patient Outreach: Care Gap Outreach Attempt Count: 1st Care Gaps Addressed recreation professor: Annual Wellness Visit, Diabetic Labs, Mammogram, Cervical Cancer Screening and Colorectal Cancer Screening Outcome: No answer, Left message to return call at and Mychart message sent documented in this encounter Plan of Treatment Upcoming Encounters Date Type Department Care Team (Late st Contact Info) Description 07/29/2024 9:00 AM EST Appointment [facility] [address] [place] [id number] Jomar Kim MD [address] [facility] [place] [address] documented as of this encounter Goals Goal Patient Goal Type Associated Problems Recent Progress Patient-Stated? Author Blood Pressure < 140/90 Blood Pressure 110/72(04/27 2:44 PM EDT) No Rachel Rogers RMA BMI (Calculated) < 30 General 50.9( 024 2:44 PM EDT) No Rachel Rogers RMA Eat better, exercise, reach an ideal body weight General No Ni Clinton, print finishing worker Healing General On track(2018 9:18 AM [...] neuropathy weekly. ?? Refer to PCP and/or Indoor Sports Centre Manager, Vascular Specialist as indicated. ?? Monitor patient compliance with wound care, diabetes management and proper offloading. Stay Tobacco Free Lifestyle On track(2020 10:23 AM EDT) No Wendy Espinoza LPN HEMOGLOBIN A1C < 7.0 Result Component 5.6(11/09/19 24 3:04 PM EST) No Rachel Rogers RMA documented as of this encounter Visit Diagnoses Not on filedocumented in this encounter Care Teams Bilingual Customer Service Relationship Specialty Start Date End Date Cristiane Shirley MD [address] [place], [place] [id number] PCP - General Family Medicine 08/20/18 12/29/23 Garett Holt MD Internal Medicine-Gastroenterology 12/22/12 Ruiz Stokes MD [address] [place], [place] [id number] Internal Medicine-Cardiovascular Disease 07/25/14 Yenny Schwab MD [address] [facility] Building [address] [place] [address] Internal Medicine-Rheumatology 12/11/16 documented as of this encounter
--- OUTSIDE RECORDS SUMMARY | 2024-07-22 16:08 | XMS_ITS | Encounter Summary ---
Author Organization [place] [address] Care Team Providers Care Assembly Instructions Writer Name Role Phone Garett Holt MD Unavailable [phone] Ruiz Stokes MD Unavailable [phone] Yenny Schwab MD Unavailable [phone] Cristiane Shirley MD Primary Care Provider [phone] Reason for Visit * Reason Onset Date Comments Central Care Gap Outreach 03/20/2020 Encounter Details Date Type Department Care Team (Late st Contact Info) Description 03/20/2020 Patient Outreach [facility] [address] [place] [address] Isabel Stewart, MATT Central Care Gap Outreach Social History Tobacco Use Types Packs/Day [...] Assessment Author No 09/14/2019 10:05 AM EST Eddie Brynn Faye MULU * Is the person blind or [...] Assessment Author No 09/14/2019 10:05 AM EST Morgan Brynnadele Mckinney RMLeigh * Because of a physical, mental [...] documented in this encounter Progress Notes * Isabel Stewart RN - 03/20/2020 2:11 PM EDT Patient Outreach: Care Gap Outreach Attempt Count: 1st Care Gaps Addressed bus driver/monitor: Mammogram Outcome: No answer documented in this encounter Plan of Treatment Upcoming Encounters Date Type Department Care Team (Late st Contact Info) Description 07/29/2024 9:00 AM EST Appointment [facility] [address] [place] [address] Jomar Kim MD [address] [place] [address] documented as of this encounter Goals Goal Patient Goal Type Associated Problems Recent Progress Patient-Stated? Author Blood Pressure < 140/90 Blood Pressure 110/72(04/27 2:44 PM EDT) No Rachel Rogers RMA BMI (Calculated) < 30 General 50.9( 024 2:44 PM EDT) No Rachel Rogers RMA Eat better, exercise, reach an ideal body weight General No Ni Clinton, mold builder Healing General On track(2018 9:18 AM EDT) [...] neuropathy weekly. ?? Refer to PCP and/or Groundhand, Vascular Specialist as indicated. ?? Monitor patient compliance with wound care, diabetes management and proper offloading. Stay Tobacco Free Lifestyle On track(2020 10:23 AM EDT) No Wendy Espinoza LPN HEMOGLOBIN A1C < 7.0 Result Component 5.6(11/09/19 24 3:04 PM EST) No Rachel Rogers RMA documented as of this encounter Visit Diagnoses Not on filedocumented in this encounter Care Teams Assembly Instructions Writer Relationship Specialty Start Date End Date Cristiane Shirley MD [address] [place] [address] PCP - General Family Medicine 08/20/18 12/29/23 Garett Holt MD Internal Medicine-Gastroenterology 12/22/12 Ruiz Stokes MD [address] [place] [id number] Internal Medicine-Cardiovascular Disease 07/25/14 Yenny Schwab MD [address] [place] [id number] Internal Medicine-Rheumatology 12/11/16 documented as of this encounter
--- OUTSIDE RECORDS SUMMARY | 2024-07-22 16:08 | XMS_ITS | Encounter Summary ---
Author Organization [place] [address] Care Team Providers Care Flakeboard Line Tender Name Role Phone Garett Holt MD Unavailable [phone] Ruiz Stokes MD Unavailable [phone] Yenny Schwab MD Unavailable [phone] Cristiane Shirley MD Primary Care Provider [phone] Reason for Visit * Reason Onset Date Comments Pessary Cleaning 02/01/2020 Encounter Details Date Type Department Care Team (Late st Contact Info) Description 02/01/2020 Telephone [facility] [address] [address] Negro Benjamin LPN Pessary Cleaning Social History Tobacco Use Types Packs/Day Years [...] Assessment Author No 09/14/2019 10:05 AM DARLINE MorganBrynn, RMA * Is the person blind or does he/she have serious difficulty seeing even when wearing glasses? Answer Date of Assessment Author No 09/14/2019 10:05 AM DARLINE MorganBrynn, RMA * Does this person have serious difficulty walking or climbing stairs? Answer Date of Assessment Author No 09/14/2019 10:05 AM DARLINE MorganBrynn RMA * Does this person have difficulty dressing or bathing? Answer Date of Assessment Author No 09/14/2019 10:05 AM DARLINE MorganBrynn, RMA * Because of a physical, mental or emotional condition, does this person have difficulty doing errands alone such as visiting a doctor's office or shopping? Answer Date of Assessment Author No 09/14/2019 10:05 AM Gavi Rossadele Mckinney RMA documented as of this encounter Mental Status * Because of a physical, mental or emotional condition, does this person have serious difficulty concentrating, remembering or making decisions? Answer Entry Date Author No 01/23/2019 9:05 AM EDT Nitin Yousif CMA documented in this encounter Miscellaneous Notes * Telephone Encounter - Negro Benjamin LPN - 02/01/2020 8:40 AM EDT Patients friend called stating the patients pessary has fallen out again. They wanted to know what they should do at this point. Reiterating Dr. Liz's last office note, explained the patient can come back in to have to pessary put back In, or the patient is welcome to move forward with surgery. Pt and friend will discuss further treatment plan and call back with what they want to do at this point. documented in this encounter Plan of Treatment Upcoming Encounters Date Type Department Care Team (Late st Contact Info) Description 07/29/2024 9:00 AM EST Appointment [facility] [address] [place], [place] [id number] Jomar Kim MD [address] [place] [address] documented as of this encounter Goals Goal Patient Goal Type Associated Problems Recent Progress Patient-Stated? Author Blood Pressure < 140/90 Blood Pressure 110/72(04/27 2:44 PM EDT) No Rachel Rogers RMA BMI (Calculated) < 30 General 50.9( 024 2:44 PM EDT) No Rachel Rogers RMA Eat better, exercise, reach an ideal body weight General No Ni Clinton, straight slicing machine operator Healing General On track(2018 9:18 [...] neuropathy weekly. ?? Refer to PCP and/or Portable Grinding Machine Operator, Vascular Specialist as indicated. ?? Monitor patient compliance with wound care, diabetes management and proper offloading. Stay Tobacco Free Lifestyle On track(2020 10:23 AM EDT) No Wendy Espinoza LPN HEMOGLOBIN A1C < 7.0 Result Component 5.6(11/09/19 24 3:04 PM EST) Rachel Regan, RMLeigh documented as of this encounter Visit Diagnoses Not on filedocumented in this encounter Care Teams Flakeboard Line Tender Relationship Specialty Start Date End Date Cristiane Shirley MD [address] [place] [address] PCP - General Family Medicine 08/20/18 12/29/23 Garett Holt MD Internal Medicine-Gastroenterology 12/22/12 Ruiz Stokes MD [address] [place] [id number] Internal Medicine-Cardiovascular Disease 07/25/14 Yenny Schwab MD [address] [address] Internal Medicine-Rheumatology 12/11/16 documented as of this encounter
--- OUTSIDE RECORDS SUMMARY | 2024-07-22 16:08 | XMS_ITS | Encounter Summary ---
Author Organization [place] [address] Care Team Providers Care Medical Typist Name Role Phone Garett Holt MD Unavailable [phone] Ruiz Stokes MD Unavailable [phone] Yenny Schwab MD Unavailable [phone] Cristiane Shirley MD Primary Care Provider [phone] Encounter Details Date Type Department Care Team (Late st Contact Info) Description 11/11/2019 Orders Only [facility] [address] [place] [address] Cristiane Shirley MD [address] [place] [id number] UTI (urinary tract infection), uncomplicated (Primary Dx) Social History Tobacco Use Types [...] Oral Capsule Take 1 Cap by mouth 3 times daily (breakfast, lunch, and bedtime). 30 Cap 11/11/2019 11/19/2019 documented in this encounter Plan of Treatment Upcoming Encounters Date Type Department Care Team (Late st Contact Info) Description 07/29/2024 9:00 AM EST Appointment [facility] [address] [place] [address] Jomar Kim MD [address] [place] [address] documented as of this encounter Goals Goal Patient Goal Type Associated Problems Recent Progress Patient-Stated? Author Blood Pressure < 140/90 Blood Pressure 110/72(04/27 2:44 PM EDT) No Rachel Rogers RMA BMI (Calculated) < 30 General 50.9( 024 2:44 PM EDT) No Rachel Rogers RMA Eat better, exercise, reach an ideal body weight General No Ni Clinton, a and p mechanic Healing General On track(2018 9:18 AM [...] neuropathy weekly. ?? Refer to PCP and/or Plate Painter Apprentice, Vascular Specialist as indicated. ?? Monitor [...] Primary Urinary tract infection, site not specified documented in this encounter Care Teams Medical Typist Relationship Specialty Start Date End Date Cristiane Shirley MD [address] [place] [address] PCP - General Family Medicine 08/20/18 12/29/23 Garett Holt MD Internal Medicine-Gastroenterology 12/22/12 Ruiz Stokes MD [address] [place] [address] Internal Medicine-Cardiovascular Disease 07/25/14 Yenny Schwab MD [address] [facility] Building [address] [place] [address] Internal Medicine-Rheumatology 12/11/16 documented as of this encounter
--- OUTSIDE RECORDS SUMMARY | 2024-07-22 16:08 | XMS_ITS | Encounter Summary ---
Author Organization [facility] [place] [address] Care Team Providers Care Sub Master Name Role Phone Garett Holt MD Unavailable [phone] Ruiz Stokes MD Unavailable [phone] Yenny Schwab MD Unavailable [phone] Cristiane Shirley MD Primary Care Provider [phone] Encounter Details Date Type Department Care Team (Latest Contact Info) Description 11/19/2019 Travel Social History Tobacco Use Types Packs/Day [...] 9:00 AM EST Appointment [facility] [address] [facility] [place] [address] Jomar Kim MD [address] [place] [address] documented as of this encounter Goals Goal Patient Goal Type Associated Problems Recent Progress Patient-Stated? Author Blood Pressure < 140/90 Blood Pressure 110/72(04/27 2:44 PM EDT) No Rachel Rogers RMA BMI (Calculated) < 30 General 50.9( 2:44 PM EDT) No Rachel Rogers RMA Eat better, exercise, reach an ideal body weight General No Ni Clinton, technical research scientist Healing General On track(2018 9:18 AM EDT) [...] neuropathy weekly. ?? Refer to PCP and/or Adult Literacy Teacher, Vascular Specialist as indicated. ?? Monitor patient compliance with wound care, diabetes management and proper offloading. Stay Tobacco Free Lifestyle On track(2020 10:23 AM EDT) Wendy Moon LPN HEMOGLOBIN A1C < 7.0 Result Component 5.6(11/09/19 24 3:04 PM EST) No Rachel Rogers RMA documented as of this encounter Visit Diagnoses Not on filedocumented in this encounter Care Teams Sub Master Relationship Specialty Start Date End Date Cristiane Shirley MD [address] [place] [id number] PCP - General Family Medicine 08/20/18 12/29/23 Garett Holt MD Internal Medicine-Gastroenterology 12/22/12 Ruiz Stokes MD [address] [place] [address] Internal Medicine-Cardiovascular Disease 07/25/14 Yenny Schwab MD [address] [facility] [address] [place] [address] Internal Medicine-Rheumatology 12/11/16 documented as of this encounter
--- OUTSIDE RECORDS SUMMARY | 2024-07-22 16:08 | XMS_ITS | Encounter Summary ---
Author Organization [place] [address] Care Team Providers Care Program Consultant Name Role Phone Garett Holt MD Unavailable Ruiz Stokes MD Unavailable [phone] Yenny Schwab MD Unavailable [phone] Cristiane Shirley MD Primary Care Provider Reason for Visit * Reason Comments Abdominal Pain Encounter Details Date Type Department Care Team (Late st Contact Info) Description 04/16/2020 3:54 PM EDT - 04/16/2020 10:44 PM EDT [facility] [address] [place] [address] Aleena Lunsford MD [address] [place] [address] Heriberto Shirley DO [address] [place] [address] [place] [address] Abdominal wall hernia (Primary Dx); Non-intractable vomiting with nausea, unspecified vomiting type Discharge Disposition: Short Term Hospital Social History Tobacco Use Types Packs/Day Years [...] have Coronavirus / COVID-19? Unable to assess 04/16/2020 5:11 PM EDT documented as of this encounter Last Filed Vital Signs Vital Sign Reading Time Taken Comments Blood Pressure 122/82 04/16/2020 9:59 PM EDT Pulse 55 04/16/2020 8:29 PM EDT Temperature 37.1 ??C (98.8 ??F) 04/16/2020 4:04 PM ED T Respiratory Rate 16 04/16/2020 8:29 PM EDT Oxygen Saturation 99% 04/16/2020 10:03 PM EDT Inhaled Oxygen Concentration - - [...] Assessment Author No 09/14/2019 10:05 AM Brynn Ross, RMA documented as of this encounter Mental Status * Because of a physical, mental or emotional condition, does this person have serious difficulty concentrating, remembering or making decisions? Answer Entry Date Author No 01/23/2019 9:05 AM Nitin Rider CMA documented in this encounter Medications at Time of Discharge CALCIUM ORAL Take 1 Tab by mouth daily. cholecalciferol, vitamin D3, (VITAMIN D3) 25 mcg (1,000 unit) Oral Tablet Take 1 Tab by mouth daily. 30 Tab 11 09/14/2019 amLODIPine (NORVASC) 10 mg Oral TabletIndications: Essential hypertension Take 1 Tab by mouth daily. 63 Tab 2 12/15/2019 0 aspirin (ASPIRIN LOW DOSE) 81 mg [...] 1 fluticasone propionate (FLONASE) 50 mcg/actuation Nasl Atkins, SuspensionIndicati ons:ETD (Eustachian tube dysfunction), right Use 1 spray(s) in each nostril once daily 16 g 01/05/2020 1 lisinopriL (PRINIVIL;ZESTRIL) 20 mg Oral Tablet tabletIndications: Essential hypertension Take 1 Tab by mouth daily. 63 Tab 2 12/15/2019 0 metFORMIN (GLUCOPHAGE) 500 mg Oral Tablet Take 1 Tab by mouth daily (with breakfast). 63 Tab 2 12/15/2019 0 naproxen sodium (ANAPROX) 220 mg Oral Tablet Take 1 Tab by mouth 2 times daily (with meals). 30 Tab 5 09/14/2019 0 omeprazole (PRILOSEC) 20 mg Oral Capsule, Delayed Release(E.C.) Take 1 Cap by mouth daily. 90 Cap 2 09/14/2019 0 oxyCODONE-acetamin ophen (PERCOCET) 5-325 mg Oral Tablet Take 1-2 Tabs by mouth every 4 hours as needed for Major Surgery/Traum a (G89.18) for up to 3 days. 30 Tab 2020 0 documented as of this encounter Discharge Disposition Disposition Code Departure Means Destination [facility] Pt care and report handed off to [facility]. documented in this encounter ED Notes * Bridget Yates RN - 04/16/2020 8:45 PM EDT Pt was provided chicken noodle soup, jello, and Diet coke. * Bridget Yates RN - 04/16/2020 7:27 PM EDT Pt care and bedside report given to this nurse by nurse Sahu. * Stacey Davis APRN - 04/16/2020 3:47 PM EDT CHIEF COMPLAINT Chief Complaint Patient presents with ??? Abdominal Pain HPI Alyssa Jamil is a 64 y.o. female who presents to the emergency department complaining of a 3 day history of mid abdominal pain. Patient states that she has had accompanying nausea and vomiting. States today she has had 3-4 episodes of nonbilious, nonbloody emesis. She had a loose, brown stool yesterday. She describes a constant, generalized pain in the abdomen that she describes as a tearing apart . Symptoms are worse with touch and eating. Patient reports that she has had intermittent dysuria with no urgency or frequency. Denies fever but states she has chills after vomiting. REVIEW OF SYSTEMS See HPI for further details. Review of systems otherwise negative. PAST MEDICAL HISTORY Past Medical History: Diagnosis Date ??? [...] CPAP OR BIPAP PER PATIENT ??? Ulcer FAMILY HISTORY Family History Problem Relation Age of Onset ??? Heart Disease Father ??? Cataracts Father ??? Diabetes Father ??? Cancer Maternal Grandmother ??? Colon Cancer Maternal Grandmother ??? Anesth Problems Neg Hx SOCIAL HISTORY Social History Socioeconomic History ??? Marital status: Spouse name: None ??? Number of children: 2 ??? Years of education: None ??? Highest education level: None Occupational History ??? Occupation: disabled Tobacco Use ??? Smoking status: Former Smoker Packs/day: 1.50 Years: 35.00 Pack years: 52.50 Types: Cigarettes Start date: 01/24/1972 Last attempt to quit: 01/24/1984 Years since quittin.2 ??? Smokeless tobacco: Never Used Substance and Sexual Activity ??? Alcohol use: No Alcohol/week: 0.0 oz ??? Drug use: No ??? Sexual activity: Yes Partners: Male control/protection: Post-menopausal SURGICAL HISTORY Past Surgical History: Procedure Laterality Date ??? ARTERY BIOPSY Right 01/06/2017 RIGHT TEMPORAL ARTERY BIOPSY ; Surgeon: Christa Chavez MD; Location: [facility] OR; Service: General ??? CARDIAC CATHETERIZATION 04/2015 ??? CHOLECYSTECTOMY 1989 ??? COLONOSCOPY ??? COLONOSCOPY 02/17/2013 Surgeon: Garett Holt MD; Location: [facility]; Service: ??? DENTAL SURGERY upper and lower teeth removed ??? UPPER GASTROINTESTINAL ENDOSCOPY ??? UPPER GASTROINTESTINAL ENDOSCOPY 02/17/2013 Surgeon: Garett Holt MD; Location: [facility]; Service: CURRENT MEDICATIONS Current Facility-Administered Medications: ??? morphine injection 4 mg, 4 mg, Intravenous, Once, Stacey Davis, A/C TECH ??? ondansetron (ZOFRAN) injection 4 mg, 4 mg, Intravenous, Once, Stacey Davis A/C TECH ??? sodium chloride 0.9% IV line flush 50 mL, 50 mL, Intravenous, PRN, Ryan, Stacey W, A/C TECH ??? sodium chloride 0.9% syringe 5-10 mL, 5-10 mL, Intravenous, PRN, Ryan, Stacey W, A/C TECH Current Outpatient Medications: ??? albuterol (PROVENTIL) 2.5 mg /3 mL (0.083 %) Inhl Solution for Nebulization, Take 3 mL by nebulization every 4 hours as needed for Wheezing., Disp: 1 box, Rfl: 6 ??? AMITIZA 24 mcg Oral Capsule, TAKE ONE CAPSULE BY MOUTH TWICE A DAY. THIS REPLACES LINZESS., Disp: 126 Cap, Rfl: 2 ??? amLODIPine (NORVASC) 10 mg Oral Tablet, Take 1 Tab by mouth daily., Disp: 63 Tab, Rfl: 2 ??? aspirin (ASPIRIN LOW DOSE) 81 mg Oral Tablet, Delayed Release (E.C.), Take 1 Tab by mouth daily., Disp: 30 Tab, Rfl: 5 ??? ASPIRIN LOW DOSE 81 mg Oral Tablet, Delayed Release (E.C.), TAKE 1 TABLET BY MOUTH DAILY, Disp:90 Tab, Rfl: 3 ??? atorvastatin (LIPITOR) 20 mg Oral Tablet, TAKE 1 TABLET BY MOUTH EVERY DAY, Disp: 90 Tab, Rfl: 1 ??? Blood-Glucose Meter Misc Kit, Please fill with what her ins will cover, Disp: 1 Kit, Rfl: 0 ??? CALCIUM ORAL, Take by mouth daily., Disp: , Rfl: ??? celecoxib (CELEBREX) 200 mg Oral Capsule, Take 1 Cap by mouth daily., Disp: 30 Cap, Rfl: 5 ??? cholecalciferol, vitamin D3, (VITAMIN D3) 25 mcg (1,000 unit) Oral Tablet, Take 1 Tab by mouth daily., Disp: 30 Tab, Rfl: 11 ??? docusate sodium (COLACE) 100 mg Oral Capsule, Take 1 Cap by mouth 2 times daily., Disp: 60 Cap,Rfl: 0 ??? fluticasone propionate (FLONASE) 50 mcg/actuation Nasl Atkins, Suspension, Use 1 spray(s) in each nostril once daily, Disp: 16 g, Rfl: 0 ??? fUROsemide (LASIX) 40 mg Oral Tablet, Take 1 Tab by mouth daily as needed., Disp: 30 Tab, Rfl: 6 ??? linaCLOtide (LINZESS) 145 mcg Oral Capsule, Take 1 Cap by mouth before breakfast., Disp: 30 Cap, Rfl: 6 ??? lisinopriL (PRINIVIL;ZESTRIL) 20 mg Oral Tablet tablet, Take 1 Tab by mouth daily., Disp: 63 Tab, Rfl: 2 ??? loratadine (CLARITIN) 10 mg Oral Tablet, Take 1 Tab by mouth daily., Disp: 63 Tab, Rfl: 2 ??? metFORMIN (GLUCOPHAGE) 500 mg Oral Tablet, Take 1 Tab by mouth daily (with breakfast)., Disp: 63 Tab, Rfl: 2 ??? naproxen sodium (ANAPROX) 220 mg Oral Tablet, Take 1 Tab by mouth 2 times daily (with meals)., Disp: 30 Tab, Rfl: 5 ??? omeprazole (PRILOSEC) 20 mg Oral Capsule, Delayed Release(E.C.), Take 1 Cap by mouth daily., Disp: 90 Cap, Rfl: 2 ??? omeprazole (PRILOSEC) 40 mg Oral Capsule, Delayed Release(E.C.), Take 1 Cap by mouth every morning (before breakfast)., Disp: 30 Cap, Rfl: 6 ??? oxybutynin (DITROPAN-XL) 10 mg Oral Tablet Extended Rel 24 hr, Take 1 tablet by mouth twice daily, Disp: 60 Tab, Rfl: 0 ALLERGIES Allergies Allergen Reactions ??? Amitriptyline Nausea And Vomiting ??? Amoxil [Amoxicillin] Hives ??? Clarithromycin hives ??? Clindamycin Nausea Only ??? Uvqd-[id number] [Nutritional Supplement-Fiber] Other (See Comments) abd pain, vomiting ??? Naproxen Rash ??? Nexium [Esomeprazole Magnesium] Hives and Rash Blisters in Mouth PHYSICAL EXAM VITAL SIGNS: BP 154/71 Pulse 72 Temp 98.8 ??F (37.1 ??C) (Oral) Resp 19 SpO2 98% Constitutional: Obese, Well developed, Well nourished, No acute distress, Non- toxic appearance. HENT: Normocephalic, Atraumatic, Bilateral external ears normal, Oropharynx moist, No oral exudates, Nose normal. Eyes: PERRLA, EOMI, Conjunctiva normal, No discharge. Neck: Normal range of motion, Supple, No stridor. Cardiovascular: Normal heart rate, Normal rhythm, No murmurs, No rubs Thorax & Lungs: Normal breath sounds, No respiratory distress, No wheezing Abdomen: Obese, Bowel sounds normal, Soft, there is a tender, reducible supraumbilical hernia. Mildly No masses, No pulsatile masses. Skin: Warm, Dry, No erythema, No rash. Back: No CVA tenderness. Extremities: Intact distal pulses, No cyanosis, No clubbing. Musculoskeletal: Good range of motion in all major joints. Neurologic: Alert & oriented x 3, Normal motor function, Normal sensory function, No focal deficits noted. Psychiatric: Affect normal, Judgment normal, Mood normal. RADIOLOGY/PROCEDURES Results for orders placed or performed during the hospital encounter of 04/16/20 CT ABD PEL ED FAST W CONTRAST Narrative CT ABDOMEN AND PELVIS WITH CONTRAST (FAST), 04/16/2020 5:40 PM CLINICAL HISTORY: -hernia, abdominal pain COMPARISON: 04/02/2014 PROCEDURE COMMENTS: Multi-detector [...] saphenous fat. No fluid collection within the hernia sac. There are 2 separate [...] lymphadenopathy. Mild atherosclerotic calcifications. No acute osseous abnormality. Impression Large multilobulated fat-containing left ventral hernia with associated inflammatory change change of the subcutaneous fat. Perienteric and mesenteric inflammatory change of the adjacent small bowel is likely reactive. The small bowel does not extend into the hernia sac and there is no evidence for bowel obstruction. - CBC WITH DIFF Result Value Ref Range WBC 13.3 (H) 4.0 - 11.0 x10(3)/mcL RBC 4.60 3.80 - 5.10 x10(6)/mcL Hgb 12.1 12.0 - 15.6 g/dL Hct 38.6 35.7 - 45.9 % MCV 84.0 82.5 - 99.8 fL MCH 26.2 (L) 27.0 - 34.3 pg MCHC 31.2 (L) 32.1 - 35.3 g/dL RDW 15.8 (H) 11.5 - 15.0 % Platelet 302 144 - 423 x10(3)/mcL MPV 7.6 6.8 - 10.8 fL Neut Percent 74.7 % Lymph Percent 14.4 % Gallia Percent 8.8 % Eos Percent 1.6 % Baso Percent 0.5 % Neut # 9.9 (H) 1.8 - 7.7 x10(3)/mcL Lymph # 1.9 0.6 - 4.8 x10(3)/mcL Gallia # 1.2 0.0 - 1.3 x10(3)/mcL Eos# 0.2 0.0 - 0.5 x10(3)/mcL Baso # 0.1 0.0 - 0.2 x10(3)/mcL COMPREHENSIVE METABOLIC PANEL Result Value Ref Range Sodium 134 (L) 136 - 145 mmol/L Potassium 4.0 3.5 - 5.0 mmol/L Chloride 100 98 - 107 mmol/L Total CO2 28 22 - 29 mmol/L Anion Gap 6 (L) 7 - 16 mmol/L Calcium 10.6 (H) 8.8 - 10.4 mg/dL Glucose Lvl 121 (H) 82 - 100 mg/dL BUN 9 8 - 23 mg/dL Creatinine 0.69 0.51 - 1.30 mg/dL Albumin 4.0 3.2 - 4.6 gm/dL Total Protein 7.6 6.4 - 8.3 gm/dL Bili Total 0.5 0.1 - 1.3 mg/dL ALT 11 <=41 U/L AST 12 <=40 U/L Alk Phos 82 36 - 123 U/L GFR Afr Am 107 >=60 mL/min/1.73 m2 GFR Non Afr Am 93 >=60 mL/min/1.73 m2 URINALYSIS Result Value Ref Range UA Color Yellow UA Appear Clear Clear UA Glucose Negative Negative mg/dL UA Ketones Negative Negative mg/dL UA Blood Small (A) Negative UA pH 6.5 5.0 - 8.0 pH UA Protein Negative Negative mg/dL UA Urobilinogen 0.2 <=1 mg/dL UA Bili Negative Negative UA Nitrite Negative Negative UA Leuk Est Negative Negative UA Spec Grav 1.020 1.001 - 1.035 no units UA WBC 3 0 - 4 /HPF UA RBC 5 (H) 0 - 3 /HPF UA Squam Epi 1+ /LPF UA Bacteria 1+ (A) Negative /HPF LACTIC ACID Result Value Ref Range Lactic Acid 0.9 0.5 - 1.9 mmol/L COURSE & MEDICAL DECISION MAKING Pertinent Labs & Imaging studies reviewed. (See chart for details) Is nontoxic, nondistressed, morbidly obese 64-year-old female presents with a three-day history of nausea/ vomiting and abdominal pain that she fairly well localizes to a large ventral wall hernia. History significant for NIDDM, hypertension and high cholesterol. Patient reports having approximately 3-4 episodes of non-bilious, nonbloody emesis today. No melenaor hematochezia. Presents afebrile with otherwise unremarkable vital signs. Abdominal wall hernia was felt to at least be partially reduced on initial exam. The patient did have decrease in discomfort following the reduction. Labs with a mild leukocytosis with a white blood cell count 13.3 with no other clinically significant hematologic, electrolyte or renal abnormalities Lactic acid 0.9. Urinalysis contained small blood-chronic CT the abdomen and pelvis with IV contrast shows a large multilobulated fat- containing hernia at the left anterior abdominal wall with associated inflammation of the saphenous fact. The hernia sac measures 13 cm x 12 cm. There is mild mesenteric inflammation and perienteric inflammatory change of an adjacent loop of small bowel. No evidence of bowel obstruction. Case and results reviewed with Dr. Butts who agrees with IP management with surgical planning. Case discussed with Remedios Randhawa APRN who is covering for the hospitalist agrees with plan and accepts admit. Results and plan discussed with the patient who also agrees FINAL IMPRESSION 1. Abdominal wall hernia 2. Non-intractable vomiting with nausea, unspecified vomiting type This chart was completed using voice recognition technology and may contain unintended errors Stacey Davis APRN 04/16/202040 Cosigned by Aleena Lunsford MD at 04/18/2020 12:45 PM EDT Associated attestation - Aleena Lunsford MD - 04/18/2020 12:45 PM EDT I had a face to face encounter with patient. I discussed the treatment plan with the patient and agree with the MLP (RYAN or STEF) documentation. 64yofemalep resents with abdominal pain. ON exam sheis obese with large midline hernia superior to umbilicus which is soft, no overlying skin changes. Workup with large fat filled hernia, no bowel. Given size, discussed withsurgery who suggested admissionfor repair. Patient to be admitted. This chart was completed using voice recognition technology and may contain unintended errors documented in this encounter Plan of Treatment Upcoming Encounters Date Type Department Care Team (Late st Contact Info) Description 07/29/2024 9:00 AM EST Appointment [facility] [address] [place] [address] Jomar Kim MD [address] [place] [address] documented as of this encounter Goals Goal Patient Goal Type Associated Problems Recent Progress Patient-Stated? Author Blood Pressure < 140/90 Blood Pressure 110/72(04/27 2:44 PM EDT) No Rachel Rogers, RMA BMI (Calculated) < 30 General 50.9( 2:44 PM EDT) No Rachel Rogers, RMA Eat better, exercise, reach an ideal body weight General No Ni Clinton, cancer program director [facility]aling General On track(2018 9:18 AM EDT) [...] neuropathy weekly. ?? Refer to PCP and/or Slitter Scorer Cut Off Operator, Vascular Specialist as indicated. ?? Monitor patient compliance with wound care, diabetes management and proper offloading. Stay Tobacco Free Lifestyle On track(2020 10:23 AM EDT) Wendy Moon LPN HEMOGLOBIN A1C < 7.0 Result Component 5.6(11/09/19 24 3:04 PM EST) No Rachel Rogers RMA documented as of this encounter Procedures Procedure Name Priority Date/Time Associated Diagnosis Comments CORONAVIRUS 2019 Routine 04/16/2020 10:2 3 PM EDT ADMIT STAT 04/16/2020 8:36 PM EDT EXTRA LAND URINE CX STAT 04/16/2020 5 :58 PM EDT URINALYSIS STAT 04/16/2020 5:[address] ABD PEL ED FAST W CONTRAST STAT 04/16/2020 5:40 PM EDT CBC WITH DIFF STAT 04/16/2020 4:40 PM EDT LACTIC ACID Routine 04/16/2020 4:40 PM EDT COMPREHENSIVE METABOLIC PANEL STAT 04/16/2020 4:40 PM EDT SALINE LOCK IV STAT 04/16/2020 4:13 PM EDT documented in this encounter Results * CORONAVIRUS 2019 (04/16/2020 10:23 PM EDT) CORONAVIRUS [id number] Negative Negative 04/17/2020 9:21 AM EDT [facility] Comment:Caution should be ex ercised when interpreting a result of 'Negative'. A result of 'Negative' does not rule out COVID-19 and cannot be used as sole basis for treatment or patient management decisions. If COVID-19 is still suspected following a 'Negative' result, re-testing should be considered. Swab BOTH ANTERIOR NARES / Unknown 04/16/2020 10:23 PM EDT 04/16/2020 10:31 PM EDT Narrative PREFERRED [employer] - 04/17/2020 9:21 AM EDT This test is a real-time RT-PCR test intended for the qualitative detection of nucleic acid from the SARS-CoV-2 in upper respiratory samples collected from individuals suspected of COVID-19. Test is performed on the [employer] platform under the FDA's Emergency Use Authorization (EUA). BD MAX Fact Sheet for Providers: https://www.fda.gov/media/373536/download [employer] Fact Sheet for Patients: ??https://www.fda.gov/media/454251/download us Stacey Davis APRN MICROBIOLOGY - GENERAL ORDER DICK Final Result Performing Organization Address City/[facility]/ZIP Co de Phone Number [facility] [address] [place] [address] , [place] [address] * EXTRA LAND URINE CX (04/16/2020 5:58 PM EDT) Urine URINE SPECIMEN COLLECTION, CLEAN CATCH / Unknown 04/16/2020 5:58 PM EDT 04/16/2020 6:03 PM EDT Stacey Davis A/C TECH MICROBIOLOGY - GENERAL ORDER DICK Final Result Performing Organization Address City/[facility]/ZIP Co de Phone Number [address] [address] * (ABNORMAL) URINALYSIS (04/16/2020 5:58 PM EDT) UA Color Yellow 04/16/2020 6:17 PM EDT [facility] UA Appear Clear Clear 04/16/2020 6:17 PM EDT [facility] UA Glucose Negative Negative mg/dL 04/16/2020 6:17 PM EDT [facility] UA Ketones Negative Negative mg/dL 04/16/2020 6:17 PM EDT [facility] UA Blood Small(A) Negative 04/16/2020 6:17 PM EDT [facility] UA pH 6.5 5.0 - 8.0 pH 04/16/2020 6:17 PM EDT [facility] UA Protein Negative Negative mg/dL 04/16/2020 6:17 PM EDT [facility] UA Urobilinogen 0.2 <=1 mg/dL 0 6:17 PM EDT [facility] UA Bili Negative Negative 04/16/2020 6:17 PM EDT [facility] UA Nitrite Negative Negative 04/16/2020 6:17 PM EDT [facility] UA Leuk Est Negative Negative 04/16/2020 6:17 PM EDT [facility] UA Spec Grav 1.020 1.001 - 1.035 no units 04/16/2020 6:17 PM EDT [facility] Comment:Reference range dano d for random specimens only. UA WBC 3 0 - 4 /HPF 04/16/2020 6:17 PM EDT [facility] UA RBC 5(H) 0 - 3 /HPF 04/16/2020 6:17 PM EDT [facility] UA Squam Epi 1+ /LPF 04/16/2020 6:17 PM EDT [facility] UA Bacteria 1+(A) Negative /HPF 04/16/2020 6:17 PM EDT [facility] Urine URINE SPECIMEN COLLECTION, CLEAN CATCH / Unknown 04/16/2020 5:58 PM EDT 04/16/2020 6:03 PM EDT us Stacey Davis A/C TECH URINE ORDERABLES Final Resul t [facility] [address] [place] [address] * CT ABD PEL ED FAST W CONTRAST (04/16/2020 5:40 PM EDT) Anatomical Region Laterality Modality Abdomen, Pelvis Computed Tomogra phy 04/16/2020 5:40 PM EDT Impressions 04/16/2020 6:31 PM EDT Large multilobulated fat-containing left ventral hernia with associated inflammatory change change of the subcutaneous fat. Perienteric and mesenteric inflammatory change of the adjacent small bowel is likely reactive. The small bowel does not extend into the hernia sac and there is no evidence for bowel obstruction. - Narrative 04/16/2020 6:[address] ABDOMEN AND PELVIS WITH CONTRAST (FAST), 04/16/2020 5:40 PM CLINICAL HISTORY: -hernia, abdominal pain COMPARISON: 04/02/2014 PROCEDURE COMMENTS: Multi-detector [...] saphenous fat. No fluid collection within the hernia sac. There are 2 separate [...] lymphadenopathy. Mild atherosclerotic calcifications. No acute osseous abnormality. Procedure Note Nito Srivastava MD - 04/16/2020 CT ABDOMEN AND PELVIS WITH CONTRAST (FAST), 04/16/2020 5:40 PM CLINICAL HISTORY: -hernia, abdominal pain COMPARISON: 04/02/2014 PROCEDURE COMMENTS: Multi-detector volumetric scanning of the abdomen andpelvis with multiplanar reformatting per expedited protocol. 100 mL Isovue 370IV. Automated exposure control for dose reduction was used. CTDIvol: 25.3 mGy.DLP: 1241 mGy-cm. FINDINGS: LOWER CHEST: Mild lingular atelectasis. ABDOMEN & PELVIS: Prior cholecystectomy. Liver, spleen, pancreas, and adrenal glands are unremarkable. Kidneys enhance symmetrically with no hydronephrosis or suspiciouslesion. Bladder is unremarkable. Large multilobulated fat-containing hernia of the left anterior abdominalwall with associated inflammation of the saphenous fat. No fluid collectionwithin the hernia sac. There are 2 separate abdominal wall defects eachdemonstrating a relatively narrow neck of approximately 2 cm. The hernia sac measures upto 13 cm in transverse dimension and 12 cm in craniocaudal dimension. There is mild mesenteric inflammation and perienteric inflammatory changeof an adjacent loop of small bowel, although the bowel does not extend into thehernia and there is no evidence for bowel obstruction. No lymphadenopathy. Mild atherosclerotic calcifications. No acuteosseous abnormality. IMPRESSION: Large multilobulated fat-containing left ventral hernia with associated inflammatory change change of the subcutaneous fat. Perienteric andmesenteric inflammatory change of the adjacent small bowel is likely reactive. Thesmall bowel does not extend into the hernia sac and there is no evidence forbowel obstruction. - Stacey Davis A/C TECH IMG CT ORDERABLES Final Resu lt * LACTIC ACID (04/16/2020 4:40 PM EDT) Lactic Acid 0.9 0.5 - 1.9 mmol/L 04/16/2020 5:06 PM EDT [facility] Blood VENOUS BLOOD / Unknown Venipuncture / Unknown 04/16/2020 4:40 PM EDT 04/16/2020 4:44 PM EDT Stacey Davis A/C TECH CHEMISTRY ORDERABLES Final R esult [facility] [address] [place] [address] * (ABNORMAL) COMPREHENSIVE METABOLIC PANEL (04/16/2020 4:40 PM [facility]) Sodium 134(L) 136 - 145 mmol/L 04/16/2020 5:08 PM [facility] Potassium 4.0 3.5 - 5.0 mmol/L 04/16/2020 5:08 PM [facility] Chloride 100 98 - 107 mmol/L 04/16/2020 5:08 PM [facility] Total CO2 28 22 - 29 mmol/L 04/16/2020 5:08 PM [facility] Anion Gap 6(L) 7 - 16 mmol/L 04/16/2020 5:08 PM [facility] Calcium 10.6(H) 8.8 - 10.4 mg/dL 04/16/2020 5:08 PM [facility] Glucose Lvl 121(H) 82 - 100 mg/dL 04/16/2020 5:08 PM [facility] BUN 9 8 - 23 mg/dL 04/16/2020 5:08 PM [facility] Creatinine 0.69 0.51 - 1.30 mg/dL 04/16/2020 5:08 PM [facility] Albumin 4.0 3.2 - 4.6 gm/dL 04/16/2020 5:08 PM [facility] Total Protein 7.6 6.4 - 8.3 gm/dL 04/16/2020 5:08 PM [facility] Bili Total 0.5 0.1 - 1.3 mg/dL 04/16/2020 5:08 PM [facility] ALT 11 <=41 U/L 04/16/2020 5:08 PM [facility] AST 12 <=40 U/L 04/16/2020 5:08 PM [facility] Alk Phos 82 36 - 123 U/L 04/16/2020 5:08 PM [facility] GFR Afr Am 107 >=60 mL/min/1.7 3 m2 04/16/2020 5:08 PM [facility] GFR Non Afr Am 93 >=60 mL/min/1.7 3 m2 04/16/2020 5:08 PM [facility] Comment: This estimated GFR was calculated [...] VENOUS BLOOD / Unknown Venipuncture / Unknown 04/16/2020 4:40 PM EDT 04/16/2020 4:44 PM EDT us Stacey Davis APRN CHEMISTRY ORDERABLES Final R esult [facility] [address] [place] [address] * (ABNORMAL) CBC WITH DIFF (04/16/2020 4:40 PM EDT) WBC 13.3(H) 4.0 - 11.0 x10(3)/mcL 04/16/2020 4:47 PM EDT [facility] RBC 4.60 3.80 - 5.10 x10(6)/mcL 04/16/2020 4:47 PM EDT [facility] Hgb 12.1 12.0 - 15.6 g/dL 04/16/2020 4:47 PM EDT [facility] Hct 38.6 35.7 - 45.9 % 04/16/2020 4:47 PM EDT [facility] MCV 84.0 82.5 - 99.8 fL 04/16/2020 4:47 PM EDT [facility] MCH 26.2(L) 27.0 - 34.3 pg 04/16/2020 4:47 PM EDT [facility] MCHC 31.2(L) 32.1 - 35.3 g/dL 04/16/2020 4:47 PM EDT [facility] RDW 15.8(H) 11.5 - 15.0 % 04/16/2020 4:47 PM EDT [facility] Platelet 302 144 - 423 x10(3)/mcL 04/16/2020 4:47 PM EDT [facility] MPV 7.6 6.8 - 10.8 fL 04/16/2020 4:47 PM EDT [facility] Neut Percent 74.7 % 04/16/2020 4:47 PM EDT [facility] Lymph Percent 14.4 % 04/16/2020 4:47 PM EDT [facility] Gallia Percent 8.8 % 04/16/2020 4:47 PM EDT [facility] Eos Percent 1.6 % 04/16/2020 4:47 PM EDT [facility] Baso Percent 0.5 % 04/16/2020 4:47 PM EDT [facility] Neut # 9.9(H) 1.8 - 7.7 x10(3)/mcL 04/16/2020 4:47 PM EDT [facility] Lymph # 1.9 0.6 - 4.8 x10(3)/mcL 04/16/2020 4:47 PM EDT [facility] Gallia # 1.2 0.0 - 1.3 x10(3)/mcL 04/16/2020 4:47 PM EDT [facility] Eos# 0.2 0.0 - 0.5 x10(3)/mcL 04/16/2020 4:47 PM EDT [facility] Baso # 0.1 0.0 - 0.2 x10(3)/mcL 04/16/2020 4:47 PM EDT [facility] Blood VENOUS BLOOD / Unknown Venipuncture / Unknown 04/16/2020 4:40 PM EDT 04/16/2020 4:44 PM EDT us Stacey Davis A/C TECH HEMATOLOGY ORDERABLES Final Result [facility] [address] [place] [address] documented in this encounter Visit Diagnoses Diagnosis Abdominal wall hernia- Primary Ventral hernia, unspecified, without mention of obstruction or gangrene Non-intractable vomiting with nausea, unspecified vomiting type documented in this encounter Administered Medications Inactive Administered Medications - up to 1 most recent administrations Medication Order MAR Action Action Date Dose Rate Site iopamidoL (ISOVUE-370) 76 % injection (LOW) 100 mL 100 mL, Intravenous, ONCE PRN, 1 dose, Starting on 04/16/20 at 1713, Until 04/16/20 at 1738, Radiography/Imaging, Radiology Procedure, VESICANT , CT (Contrasts) Given 04/16/2020 5:38 PM EDT 100 mL Right Arm morphine injection 4 mg 4 mg, Intravenous, ONCE, 1 dose, On 04/16/20 at 1615 Given 04/16/2020 4:41 PM EDT 4 mg ondansetron (ZOFRAN) injection 4 mg 4 mg, Intravenous, ONCE, 1 dose, On 04/16/20 at 1615, Given 04/16/2020 4:41 PM EDT 4 mg sodium chloride 0.9% IV line flush 50 mL 50 mL, Intravenous, at 999 mL/hr, PRN, Starting on 04/16/20 at 1613, Until 04/16/20 at 2321, Line Care, Flush with 50 mL after IVPB to insure complete administration of the dose. May use the saline infusion to back flush IVPB tubing as needed., Use this order to document priming and flushing IV line after medication administration. sodium chloride 0.9% syringe 5-10 mL 5-10 mL, Intravenous, PRN, Starting on 04/16/20 at 1613, Until 04/16/20 at 2321, Line Care, Flush with 5 mL saline pre/post IVP, and 5 mL prior to IVPB or blood product administration. Protocol for PERIPHERAL IV saline lock maintenance, flush with 3-5 mL saline syringe every 8 hours., Flush every shift or after IV medication sodium chloride 0.9% syringe Intravenous, ONCE PRN, 1 dose, Starting on 04/16/20 at 1713, Until 04/16/20 at 1738, Line Care, Flush every shift or after IV medication, CT (Contrasts) Given 04/16/2020 5:38 PM EDT 20 mL Rig ht Arm documented in this encounter Active and Recently Administered Medications Times are shown in EDT. Scheduled Medication Order 04/14/2020 04/15/2020 04/16/2020 morphine injection 4 mg (COMPLETED) 4 mg, Intravenous, ONCE, 1 dose, On 04/16/20 at 1615 1641 (Given - Provid er: Adelina Bonilla RN) ondansetron (ZOFRAN) injection 4 mg (COMPLETED) 4 mg, Intravenous, ONCE, 1 dose, On 04/16/20 at 1615, 1641 (Given - Provid er: Adelina Bonilla RN) PRN Medication Order 04/14/2020 04/15/2020 04/16/2020 iopamidoL (ISOVUE-370) 76 % injection (LOW) 100 mL (COMPLETED) 100 mL, Intravenous, ONCE PRN, 1 dose, Starting on 04/16/20 at 1713, Until 04/16/20 at 1738, Radiography/Imaging, Radiology Procedure, VESICANT , CT (Contrasts) 173 (Given - Provid er: Kelly Gilbert, RT) sodium chloride 0.9% IV line flush 50 mL 50 mL, Intravenous, at 999 mL/hr, PRN, Starting on 04/16/20 at 1613, Until 04/16/20 at 2321, Line Care, Flush with 50 mL after IVPB to insure complete administration of the dose. May use the saline infusion to back flush IVPB tubing as needed., Use this order to document priming and flushing IV line after medication administration. sodium chloride 0.9% syringe 5-10 mL 5-10 mL, Intravenous, PRN, Starting on 04/16/20 at 1613, Until 04/16/20 at 2321, Line Care, Flush with 5 mL saline pre/post IVP, and 5 mL prior to IVPB or blood product administration. Protocol for PERIPHERAL IV saline lock maintenance, flush with 3-5 mL saline syringe every 8 hours., Flush every shift or after IV medication sodium chloride 0.9% syringe (COMPLETED) Intravenous, ONCE PRN, 1 dose, Starting on 04/16/20 at 1713, Until 04/16/20 at 1738, Line Care, Flush every shift or after IV medication, CT (Contrasts) 1737 (Given - Provid er: Kelly Gilbert, RT) documented in this encounter Orders Medications Ordered That Edwin ht Not Have Been Administered Count Last Ordered Date First Ordered Date sodium chloride 0.9% IV line flush 50 mL 1 04/16/2020 sodium chloride 0.9% syringe 5-10 mL 1 05/2020 IV Count Last Ordered Date First Orde red Date SALINE LOCK IV 1 04/16/2020 Admission Count Last Ordered Date First Orde red Date ADMIT 1 04/16/2020 documented in this encounter Care Teams Program Consultant Relationship Specialty Start Date End Date Cristiane Shirley MD [address] [place] [address] PCP - General Family Medicine 08/20/18 12/29/23 Garett Holt MD Internal Medicine-Gastroenterology 12/22/12 Ruiz Stokes MD [address] [place] [address] Internal Medicine-Cardiovascular Disease 07/25/14 Yenny Schwab MD [address] [facility] [address] [place] [address] Internal Medicine-Rheumatology 12/11/16 documented as of this encounter
--- OUTSIDE RECORDS SUMMARY | 2024-07-22 16:08 | XMS_ITS | Encounter Summary ---
Author Organization [place] [address] Care Team Providers Care Tracer Powder Blender Name Role Phone Garett Holt MD Unavailable [phone] Ruiz Stokes MD Unavailable [phone] Yenny Schwab MD Unavailable [phone] Cristiane Shirley MD Primary Care Provider [phone] Reason for Visit * Reason Comments Medication Refill Encounter Details Date Type Department Care Team (Late st Contact Info) Description 01/04/2020 Refill [facility] [address] [place] [address] Cristiane Shirley MD [address] [place] [address] Medication Refill Social History Tobacco Use Types [...] tablet by mouth twice daily 60 Tab 01/05/2020 0 fluticasone propionate (FLONASE) 50 mcg/actuation Nasl Gambell, SuspensionIndicati ons:ETD (Eustachian tube dysfunction), right Use 1 spray(s) in each nostril once daily 16 g 01/05/2020 1 documented in this encounter Plan of Treatment Upcoming Encounters Date Type Department Care Team (Late st Contact Info) Description 07/29/2024 9:00 AM EST Appointment [facility] [address] [place] [address] Jomar Kim MD [address] [facility] [place] [address] documented as of this encounter Goals Goal Patient Goal Type Associated Problems Recent Progress Patient-Stated? Author Blood Pressure < 140/90 Blood Pressure 110/72(04/27 2:44 PM EDT) No Rachel Rogers RMA BMI (Calculated) < 30 General 50.9( 024 2:44 PM EDT) No Rachel Rogers RMA Eat better, exercise, reach an ideal body weight General No Ni Clinton, medical underwriter Healing General On track(2018 9:18 AM EDT) [...] neuropathy weekly. ?? Refer to PCP and/or Transportation Operations Manager, Vascular Specialist as indicated. ?? [...] te fluticasone propionate (FLONASE) 50 mcg/actuation Nasl Gambell, SuspensionIndications:ET D (Eustachian tube dysfunction), right INSTILL 1 SPRAY IN EACH NOSTRIL EVERY DAY 09/14/2019 01/05/2020 oxybutynin (DITROPAN-XL) 10 mg Oral Tablet Extended Rel 24 hr Take 1 Tab by mouth 2 times daily. 10/05/2019 01/05/2020 documented as of this encounter Care Teams Tracer Powder Blender Relationship Specialty Start Date End Date Cristiane Shirley MD [address] [place] [address] PCP - General Family Medicine 08/20/18 12/29/23 Garett Holt MD Internal Medicine-Gastroenterology 12/22/12 Ruiz Stokes MD [address] [place] [address] Internal Medicine-Cardiovascular Disease 07/25/14 Yenny Schwab MD [address] [facility] [address] [place], [place] [id number] Internal Medicine-Rheumatology 12/11/16 documented as of this encounter
--- OUTSIDE RECORDS SUMMARY | 2024-07-22 16:08 | XMS_ITS | Encounter Summary ---
Author Organization [place] [address] Care Team Providers Care Director Diversity Name Role Phone Garett Holt MD Unavailable [phone] Ruiz Stokes MD Unavailable [phone] Yenny Schwab MD Unavailable [phone] Cristiane Shirley MD Primary Care Provider [phone] Reason for Referral * Ultrasound (Routine) - Closed Specialty Diagnoses / Procedures Referred By Contac t Referred To Contact Radiology Diagnoses Endometrial hyperplasia Procedures US PELVIS AND TRANSVAGINAL NON OB COMPLETE Poornima Liz MD [address] [place] [address] Phone: tel: fax: Referral ID Status Reason Start Date Expiration Date Visits Re quested Visits Authorized [id number] Closed 01/24/2020 01/23/2021 1 1 Reason for Visit * Reason Comments New Patient prolapse * Consultation (Routine) - Closed Specialty Diagnoses / Procedures Referred By Contact Referred To Contact Obstetrics & Gynecology - Female Pelvic Medicine And Reconstructive Surgery / Gynecology Diagnoses Female genital prolapse, unspecified npp/new/prolapse Procedures NEW PATIENT Cristiane Shirley MD Phone: tel: fax: Poornima Liz MD [address] [place] [id number] Phone: tel: fax: Referral ID Status Reason Start Date Expiration Date Visits Re quested Visits Authorized [id number] Closed 01/24/2020 01/23/2021 99 99 Encounter Details Date Type Department Care Team (Latest Contact Info) Description 01/24/2020 10:30 AM EDT Office Visit [facility] U[facility]ne[facility] [address] [address] Poornima Liz MD [address] [place] [address] Endometrial hyperplasia (Primary Dx); Frequent urination; Type 2 diabetes mellitus without complication, without long-term current use of insulin ([facility]); Venous insufficiency; Obesity, Class III, BMI 40-49.9 (morbid obesity) ([facility]); Overactive bladder; Rectocele; Abnormal defecation Social History Tobacco Use Types Packs/Day Years [...] Sign Reading Time Taken Comments Blood Pressure 110/80 01/24/2020 11:03 AM EDT Pulse 79 01/24/2020 11:03 AM EDT Temperature 36.6 ??C (97.8 ??F) 01/24/2020 1 1:03 AM EDT Respiratory Rate - - Oxygen Saturation 97% 01/24/2020 11: 03 AM EDT Inhaled Oxygen Concentration - - Weight 124.6 kg (274 lb 12.8 oz) 2019 11:03 AM EDT Height - - Body Mass Index 50.26 11/19/2019 3:18 PM EDT documented in this encounter Functional [...] documented in this encounter Progress Notes * Poornima Liz MD - 01/24/2020 10:30 AM EDTSdeniz: transfer of care to [place] for prolapse and OAB Images from the original note were not included. New Patient Alyssa Jamil 1955 HPI: Alyssa is a 64 y.o. old female ( x 2) Who is referred by Dr. Shirley for evaluation of mixed incontinence and prolapse as a consultation with Dr Liz today. Alyssa was receiving care from dr Cameron until last year; she prefers this location. Alyssa underwent several pessary fittings - most falling out (rectocele predominant) and then decided to pursue surgery but after the URODYNAMIC testing, Dr Cameron and patient chose to not pursue surgery. Alyssa tried oxybutynin 5mg PO BID for her OAB and is still satisfied with this medication. Denies wearing pads or diapers and would like a refill. We discussed how her VAGINA BULGE is separate from her BLADDER URGENCY/pressure. She reports pain in both legs and groin like achy . Bladder control problem: Leakage: no but severe OAB How lon years Prior treatments for incontinence: kegels > 1 year and Oxybutynin and Pessary Bladder emptying problems: Yes: Difficulty urinating or emptying bladder: yes How lon years Dribbling: no Difficulty starting stream: yes Straining to empty: no Urine flow: normal Prolapse/vaginal support problems: Do you have the feeling of fullness or pressure, bulge or protrusion of any vaginal tissue? Yes: Doyou notice a bulge? Yes Have you ever used a pessary ( a plastic support device) for this problem? Yes Bowel Problem(s): Yes: Constipation Difficulty emptying bowels: Yes Fecal urgency or incontinence: No How lon years How many episodes of fecal incontinence per week: 0 Need to splint: yes. Prior treatments for bowel issues: OTC medication like stool softeners; now taking Linzese Rx PO daily Sexual History: Barriers to sexual activity: no. Social History Substance and Sexual Activity Sexual Activity Yes ??? Partners: Male ??? 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 Past Surgical History: has a past surgical history that includes Colonoscopy; Upper gastrointestinal endoscopy; Upper gastrointestinal endoscopy (02/17/2013); Colonoscopy (02/17/2013); Cholecystectomy (1989); Cardiac Catheterization (04/2015); Dental surgery; and Artery Biopsy (Right, 01/06/2017). Allergies: is allergic to amitriptyline; amoxil [amoxicillin]; clarithromycin; clindamycin; ihbg-[id number]-[id number] [nutritional supplement-fiber]; naproxen; and nexium [esomeprazole magnesium]. Current Medications:has a current medication list which includes the following prescription(s): albuterol, amitiza, amlodipine, aspirin, aspirin low dose, atorvastatin, blood-glucose meter, calcium, celecoxib, cholecalciferol (vitamin d3), docusate sodium, fluticasone propionate, furosemide, linaclotide, lisinopril, loratadine, metformin, naproxen sodium, omeprazole, omeprazole, and oxybutynin. Social History: reports that she quit smoking about 36 years ago. Her smoking use included cigarettes. She started smoking about 48 years ago. She has a 52.50 pack-year smoking history. She has neverused smokeless tobacco. She reports that she does not drink alcohol or use drugs. Family History: family history includes Cancer in her maternal grandmother; Cataracts in her father; Colon Cancer in her maternal grandmother; Diabetes in her father; Heart Disease in her father. Review of System: Review of Systems Constitutional: Negative. Negative for chills, diaphoresis, fatigue and fever. HENT: Negative. Negative for ear discharge, ear pain and nosebleeds. Eyes: Negative. Negative for photophobia, discharge and itching. Respiratory: Negative. Negative for apnea, chest tightness, shortness of breath and wheezing. Cardiovascular: Negative. Negative for chest pain and palpitations. Gastrointestinal: Negative. Negative for abdominal distention. Endocrine: Negative. Negative for cold intolerance and heat intolerance. Genitourinary: Negative for enuresis, flank pain, genital sores and menstrual problem. Musculoskeletal: Negative for neck pain. Allergic/Immunologic: Negative. Negative for environmental allergies, food allergies and immunocompromised state. Neurological: Negative. Negative for tremors, seizures, syncope, facial asymmetry, light-headednessand headaches. Hematological: Negative. Negative for adenopathy. Does not bruise/bleed easily. Psychiatric/Behavioral: Negative. Negative for agitation and behavioral problems. Physical Exam: Vitals: 01/24/20 1103 BP: 110/80 BP Location: Left arm Patient Position: Sitting Pulse: 79 Temp: 97.8 ??F (36.6 ??C) TempSrc: Oral SpO2: 97% Weight: 274 lb 12.8 oz (124.6 kg) Physical Exam Vitals signs and nursing note reviewed. Constitutional: Appearance: She is well-developed. HENT: Head: Normocephalic and atraumatic. Eyes: Conjunctiva/sclera: Conjunctivae normal. Pupils: Pupils are equal, round, and reactive to light. Neck: Musculoskeletal: Normal range of motion and neck supple. Thyroid: No thyromegaly. Cardiovascular: Rate and Rhythm: Normal rate and regular rhythm. Heart sounds: Normal heart sounds. No gallop. Pulmonary: Effort: Pulmonary effort is normal. No respiratory distress. Breath sounds: Normal breath sounds. No wheezing or rales. Abdominal: General: Bowel sounds are normal. There is no distension. Palpations: Abdomen is soft. Tenderness: There is no abdominal tenderness. There is no guarding or rebound. Musculoskeletal: Normal range of motion. General: No tenderness. Lymphadenopathy: Cervical: No cervical adenopathy. Skin: General: Skin is warm and dry. Neurological: Mental Status: She is alert and oriented to person, place, and time. Deep Tendon Reflexes: Reflexes are normal and symmetric. Psychiatric: Behavior: Behavior normal. Judgment: Judgment normal. After asking the patient's permission, I completed the patient's physical and pelvic exam, and any applicable ancillary tests (i.e. Urinary catheter) with the presence of a senior agricultural assistant named Hodan. The patient voiced understanding and gave verbal consent. Pelvic Exam: Normal EFG Atrophy mild Normal mons and clitoris Normal labia Normal urethra and meatus Normal perineum and anus No masses Prolapse Stage 3 rectocele with GH = 5cm Bleeding NO Discharge NO Pain NO POPQ Stage3 rectocele Soft tissue dystocia from enlarged mons and labia Bilateral groin demonstrate prominent varicose veins which are likely contributing to her pressure feeling there today. Fitted for a #3 GELHORN pessary but it shifted out during supine valsalva. Fitted for a #4 (2.5) GELHORN pessary and it did not shift during valsalva but I cautioned her it would likely shift during defecation/straining (use hand to gently push back in) or would likely fall-out during defecation/straining (call office during normal business hours so DRILLER HAND could reinsert). 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 C&S pending Labs/Imaging: Lab Results Component Value Date NA 141 11/09/2019 K 4.0 11/09/2019 CL 101 11/09/2019 CO2 28 11/09/2019 ANIONGAP 12 11/09/2019 CALCIUM 10.1 11/09/2019 GLU 106 (H) 11/09/2019 BUN 12 11/09/2019 CREATININE 0.79 11/09/2019 ALBUMIN 4.0 11/09/2019 PROT 7.4 11/09/2019 LABBILI 0.2 11/09/2019 AST 13 11/09/2019 ALT 12 11/09/2019 ALKPHOS 78 11/09/2019 GFRAFRAM 92 11/09/2019 GFRNONAFRAM 80 11/09/2019 Results for orders placed during the hospital encounter of 03/13/15 US PELVIS AND TRANSVAGINAL NON OB COMPLETE Narrative US PELVIS AND TRANSVAGINAL NON OB COMPLETE Mar 13, 2015 01:49:19 PM Clinical: 627.1-Postmenopausal [id number] COMPARISONS: None. TECHNICAL FACTORS: Multiple crenshaw scale and color DOPPLER images were obtained of the pelvis via a transabdominal and transvaginal approach. FINDINGS: The uterus is normal in contour and echogenicity. The uterus measures 7 x 3.6 x 6.1 cm. There is an abnormally thickened endometrial stripe complex measuring 1.3 cm. The right ovary is normal in contour and echogenicity. The right ovary measures 1 x 1.5 x 1.8 cm in size. Left ovary is not visualized. There is no free fluid in the pelvis. Impression IMPRESSION: There is an abnormally thickened endometrial stripe measuring up to 1.3 cm. Differential considerations include endometrial hyperplasia or endometrial neoplasm. An endometrial biopsy should be considered. No results found for this or any previous visit. Results for orders placed during the hospital encounter of 05/20/13 US RENAL AND BLADDER Narrative Renal ultrasound INDICATION: Hematuria. FINDINGS: The right kidney measures 12.6 cm. No focal lesions. No dilatation. The left kidney measures 12.1 cm. No focal lesions. The retroperitoneum and bladder are unremarkable. Impression IMPRESSION: Normal Lab Results Component Value Date HGBA1C 6.3 (H) 11/09/2019 I spent 60 minutes with the patient today with over 50% of my time spent counseling the patient face to face about the plan of care. ASSESSMENT: atrophic vaginitis, constipation, defecatory dysfunction, overactive bladder, rectocele and urgency/ frequency PLAN: Has had a recent UTI which could have been related to taking terminal clerk oxybutynin however her PVR was normal today and this is reassuring. Thus, if +culture x 2 in 6 months, consider imaging and further UTI work up. - optimal A1c < 6 - bladder diet compliance has been discussed numerous times - may benefit from qHS macrodantin 50mg PO STAGE III POSTERIOR POP - Discussed the diagnosis, pathophysiology, and management options including but not limited to: expectant or pelvic physical therapy, conservative or pessary, and surgery. Patient was offered all options including surgical cocopah tissue vaginal repairs, use of mesh, roboticrepair, or colpectomy. As patient is NOT sexually active and has not had prior pelvic surgery, she wishes to proceed with pessary trial again. DECLINES SURGERY HER ADULT SON WHO LIVES WITH HER DOES NOT LIKE CLEANING OR DOING DISHES SO SHE JUST CAN'T TAKE 6 WEEKS OFF NOW. Literature was given and reviewed in detail. All questions were answered and patient's goals and expectations were met today. - fitted for a gelhorn #4 (2.5) today and will return q 3 months for cleaning with DRILLER HAND - has had DRILLER HAND clean pessary ring before when receiving care with dr Cameron URINARY INCONTINENCE - Patient exhibits subjective and objective evidence today of voiding dysfunction. We discussed the pathophysiology of her disease process via anatomic drawings. She is informed of treatment options including but not limited to: expectant, conservative such as pelvic physical therapy, behavioral modifications (i.e. Weight loss, dietary changes, timed voiding and retraining, smoking cessation), and medications, or surgery. Patient bothered most by U/F/pressure, and wishes toproceed with refills on med #1 before further testing. Literature given and reviewed. All questions were answered and patient's goals and expectations were met today. - continue oxybutynin 5mg PO BID with refills given - denies leakage or pad-use - can switch to detrol 4mg PO daily if needed in future - continue linzese PO daily as constipation is likely from both her rectocele and oxybutynin side fx NOTE: patient's has delayed verbal responses and difficult processing our simplified conversations today. Due to COVID restrictions, her gal pal was unable to come in today to hear this discussion soit would be beneficial for her to attend the next office visit, if possible. DENIES POST ALEXANDRA BLEEDING. Poornima Liz MD F[facility]OG [facility] Female Pelvic Medicine and Reconstructive Surgery [facility] Physician pellet mill operator [address] [place], [place] [id number] phone [phone] fax [email or web address] 01/24/20 12:15 PM * Hodan Rea RMA - 01/24/2020 10:30 AM EDT Left message on vm for patient to return call. * Hodan Rea RMA - 01/24/2020 10:30 AM EDT Left message for patient to return our call. * Negro Benjamin LPN - 01/24/2020 10:30 AM EDT Patients records of her hysterectomy are on your desk for review. Left patient a reminder message with CS # on her VM. * Poronima Liz MD - 01/24/2020 10:30 AM EDT Patient has negative urine culture. Notified via MyChart of results. Thank you. Poornima Liz MD documented in this encounter Miscellaneous Notes * Patient Instructions - Hodan Rea RMA - 01/24/2020 10:30 AM EDT Images from the original note were not included. UROGYNECOLOGY WELCOME! [facility], you can expect comprehensive and competent care. Part of this care will include laboratory studies. By giving you expectations of how these laboratory studies are obtained, ordered, processed and resulted, we hope to provide you with reassurance that we embrace your care with the upmost importance. Most patients will have a catheter specimen urine culture obtained at their initial visit. This urine culture is sent to the lab to identify any underlying urinary tract infections and this process can take up to three to five business days to result. A phone call or [email or web address] message will be placed by our office only to review these results with you. If any of our patients have concerns for urinary tract infection symptoms, we ask that you reach out to our office via telephone for a possible appointment with our nurse practitioner. Depending on each patient's history, risk factors and current symptoms, an office visit with a catheter sample maybe required. These results will also take up to three-five business days to result and be treated. Due to the large volume of urine culture results, positive results will be sent [email or web address] messages initially with a phone call to follow up if possible. A vaginal swab may also be a part of your care within our practice. These results, as well as any office biopsies preformed can take up to 7 days to result. All results, unless critical, will be sentthrough [facility]. You are welcome to view all your results, past and present through [facility] portal. Imaging results, including any CT scans or ultrasounds will be reviewed by a provider and forwarded to you within 48 business hours. Our office does highly encourage all patients, if possible, to have an active and accessible [facility] account. [facility] is [facility] patient record portal and is an easy way to access our office and providers. Patient messages are typically answered within 24-48 hours. Expectations of a longer wait time can be anticipated if consults to other providers or referrals are necessary. Any urgent matters, especially with our post-operative patients, are encouraged to please call the office and speak to any of our office personnel. Refills for medications can also be requested through [employer] [facility] and if you have been seen by your physician within the past year, it will be sent to your pharmacy. If you have questions about pricing or medication coverage, first CALL YOUR INSURANCE COMPANY to ask them if they are able to cover a medication comparable to one we prescribed then let our office know that list. If you need assistance setting up [employer] please call our office for instructions: [phone] press 2 documented in this encounter Plan of Treatment Upcoming Encounters Date Type Department Care Team (Late st Contact Info) Description 07/29/2024 9:00 AM EST Appointment [facility] [address] [facility] [place], [place] [id number] Jomar Kim MD [address] [place] [address] Scheduled Orders Name Type Priority Associated Diagnoses Orde r Schedule US PELVIS AND TRANSVAGINAL NON OB COMPLETE Imaging Routine Endometrial hyperplasia 1 Occurrences starting 01/24/2020 until 01/23/2021 documented as of this encounter Goals Goal Patient Goal Type Associated Problems Recent Progress Patient-Stated? 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 ?? Refer to PCP and/or Cattle Care Worker, Vascular Specialist as indicated. ?? Monitor patient compliance with wound care, diabetes management and proper offloading. Stay Tobacco Free Lifestyle On track(2020 10:23 AM EDT) Wendy Moon LPN HEMOGLOBIN A1C < 7.0 Result Component 5.6(11/09/19 24 3:04 PM EST) No Rachel Rogers RMA documented as of this encounter Procedures Procedure Name Priority Date/Time Associated Diagnosis Comments URINALYSIS Routine 01/24/2020 11:27 AM EDT Frequent urination URINE CULTURE (NO STAIN) Routine 01/24/2020 11:27 AM EDT Frequent urination POCT URINALYSIS DIPSTICK Routine 01/24/2020 11:26 AM EDT Frequent urination documented in this encounter Results * URINE CULTURE (NO STAIN) (01/24/2020 11:27 AM EDT) Culture No growth at 30 hours. 01/26/2020 7:15 AM EDT [facility] Urine URINE SPECIMEN OBTAINED VIA STRAIGHT CATHETER / Unknown 01/24/2020 11:27 AM EDT 01/24/2020 11:27 AM EDT us Poornima Liz MD MICROBIOLOGY - GENERAL OR DERABLES Final Result [facility] [address] [facility] , [address] [place], [place] [id number] * (ABNORMAL) URINALYSIS (01/24/2020 11:27 AM EDT) UA Color Straw 01/24/2020 7:24 PM EDT [facility] UA Appear Clear Clear 01/24/2020 7:24 PM EDT [facility] UA Glucose Negative Negative mg/dL 01/24/2020 7:24 PM EDT [facility] UA Ketones Negative Negative mg/dL 01/24/2020 7:24 PM EDT [facility] UA Blood Moderate(A) Negative 01/24/2020 7:24 PM EDT [facility] UA pH 7.0 5.0 - 8.0 pH 01/24/2020 7:24 PM EDT [facility] UA Protein Negative Negative mg/dL 01/24/2020 7:24 PM EDT [facility] UA Urobilinogen Normal <=1 mg/dL 0 7:24 PM EDT [facility] UA Bili Negative Negative 01/24/2020 7:24 PM EDT [facility] UA Nitrite Negative Negative 01/24/2020 7:24 PM EDT [facility] UA Leuk Est Negative Negative 01/24/2020 7:24 PM EDT [facility] UA Spec Grav 1.012 1.001 - 1.035 no units 01/24/2020 7:24 PM EDT [facility] Comment:Reference range dano d for random specimens only. UA WBC <1 0 - 4 /HPF 01/24/2020 7:24 PM EDT [facility] UA RBC 1 0 - 3 /HPF 01/24/2020 7:24 PM EDT [facility] UA Mucus Trace /LPF 01/24/2020 7:24 PM EDT [facility] Urine 01/24/2020 11:2 7 AM EDT 01/24/2020 11:27 AM EDT us Poornima Liz MD URINE ORDERABLES Final Re sult [facility] [address] [facility] , [address] [place] [id number] * (ABNORMAL) POCT URINALYSIS DIPSTICK (01/24/2020 11:26 AM EDT) Color, UA yellow CLEAR,YELL OW,ORANGE, RUST SEP OFFICE Clarity, UA clear CLEAR,CLOU DY SEP OFFICE Glucose, UA n G/DL% SEP OFFICE Bilirubin, UA n POS/NEG SEP OFFICE Ketones, UA n POS/NEG SEP 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 Grav, UA 1.005 1.001 - 1.035 G/DL SEP OFFICE Blood, UA pos POS/NEG SEP OFFICE pH, UA 5 5.0 - 8 SEP OFFICE Protein, UA n POS/NEG SEP OFFICE Urobilinogen, UA 0.2 0.2 - 1.0 MG/DL SEP OFFICE Leukocytes, UA n POS/NEG SEP OFFICE Nitrite, UA n POS/NEG SEP OFFICE UA Appear POC SEP OFFICE Lot Number SEP OFFICE Expiration Date SEP OFFICE SeriAl # SEP OFFICE Urine 01/24/2020 11:2 6 AM EDT Poornima Liz MD POINT OF CARE TEST ORDERA BLES Final Result SEP OFFICE documented in this encounter Visit Diagnoses Diagnosis Endometrial hyperplasia- Primary Endometrial hyperplasia, unspecified Frequent urination Urinary frequency Type 2 diabetes mellitus without complication, without long-term current use of insulin (HCC) Venous insufficiency Unspecified venous (peripheral) insufficiency Obesity, Class III, BMI 40-49.9 (morbid obesity) (HCC) Morbid obesity Overactive bladder Hypertonicity of bladder Rectocele Abnormal defecation documented in this encounter Care Teams Director Diversity Relationship Specialty Start Date End Date Cristiane Shirley MD [address] [facility] [place] [place] [address] PCP - General Family Medicine 08/20/18 12/29/23 Garett Holt MD Internal Medicine-Gastroenterology 12/22/12 Ruiz Stokes MD [address] [place] [address] Internal Medicine-Cardiovascular Disease 07/25/14 Yenny Schwab MD [address] [place] [id number] Internal Medicine-Rheumatology 12/11/16 documented as of this encounter
--- OUTSIDE RECORDS SUMMARY | 2024-07-22 16:08 | XMS_ITS | Encounter Summary ---
Author Organization [place] [address] Care Team Providers Care Talent Sourcer Name Role Phone Garett Holt MD Unavailable [phone] Ruiz Stokes MD Unavailable [phone] Yenny Schwab MD Unavailable [phone] Cristiane Shirley MD Primary Care Provider [phone] Reason for Visit * Reason Comments Medication Refill Encounter Details Date Type Department Care Team (Late st Contact Info) Description 12/14/2019 Refill [facility] [address] [place] [address] Doron Rojas, AD WRITER [address] [place] [address] Medication Refill Social History Tobacco Use Types [...] Refills Last Filled Start Date End Date AMITIZA 24 mcg Oral Capsule TAKE ONE CAPSULE BY MOUTH TWICE A DAY. THIS REPLACES LINZESS. 126 Cap 2 12/14/2019 0 documented in this encounter Plan of Treatment Upcoming Encounters Date Type Department Care Team (Late st Contact Info) Description 07/29/2024 9:00 AM EST Appointment [facility] [address] [place] [address] Jomar Kim MD [address] [place] [address] documented as of this encounter Goals Goal Patient Goal Type Associated Problems Recent Progress Patient-Stated? Author Blood Pressure < 140/90 Blood Pressure 110/72(04/27 2:44 PM EDT) Rachel Regan RMA BMI (Calculated) < 30 General 50.9( 024 2:44 PM EDT) No Rachel Rogers RMA Eat better, exercise, reach an ideal body weight General No Ni Clinton, hot blaster Healing General On track(2018 9:18 AM EDT) [...] weekly. ?? Refer to PCP and/or Can Operator, Vascular Specialist as indicated. ?? Monitor [...] Discontinue Reason Start Date End Da te AMITIZA 24 mcg Oral Capsule TAKE ONE CAPSULE BY MOUTH TWICE A DAY. THIS REPLACES LINZESS. 11/02/2019 12/14/2019 documented as of this encounter Care Teams Talent Sourcer Relationship Specialty Start Date End Date Cristiane Shirley MD [address] [place] [address] PCP - General Family Medicine 08/20/18 12/29/23 Garett Holt MD Internal Medicine-Gastroenterology 12/22/12 Ruiz Stokes MD [address] [place] [address] [id number] Internal Medicine-Cardiovascular Disease 07/25/14 Yenny Schwab MD [address] [facility] [address] [place] [address] Internal Medicine-Rheumatology 12/11/16 documented as of this encounter
--- OUTSIDE RECORDS SUMMARY | 2024-07-22 16:08 | XMS_ITS | Encounter Summary ---
Author Organization [facility] [place] [address] Care Team Providers Care Mast Maker Name Role Phone Garett Holt MD Unavailable [phone] Ruiz Stokes MD Unavailable [phone] Yenny Schwab MD Unavailable [phone] Cristiane Shirley MD Primary Care Provider Reason for Visit * Reason Comments Dysuria Hemorrhoids Ankle Pain left Encounter Details Date Type Department Care Team (Late st Contact Info) Description 11/09/2019 2:30 PM EST Office Visit [facility] [address] [place] [address] Cristiane Shirley MD [address] [place] [address] Type 2 diabetes mellitus without complication, without long-term current use of insulin (HCC) (Primary Dx); Dysuria; UTI (urinary tract infection), uncomplicated Social History [...] Sign Reading Time Taken Comments Blood Pressure 112/80 11/09/2019 3:43 PM EST Pulse - - Temperature 36.2 ??C (97.1 ??F) 11/09/2019 3:43 PM ES T Respiratory Rate - - Oxygen Saturation - - Inhaled Oxygen Concentration - - Weight 125.2 kg (276 lb) 11/09/2019 3:43 PM EST Height 157.5 cm (5' 2 ) 11/09/2019 3:43 PM EST Body Mass Index 50.48 11/09/2019 3:43 PM EST documented in this encounter Functional [...] Date Author No 01/23/2019 9:05 AM EDT Feucht, K imberlyn S, FIRE APPARATUS SPRINKLER INSPECTOR documented in this encounter Ordered Prescriptions Prescription Sig Dispense Quantity Refills Last Filled Start Date End Date ciprofloxacin HCl (CIPRO) 250 mg Oral TabletIndications:U TI (urinary tract infection), uncomplicated Take 1 Tab by mouth 2 times daily for 5 days. 10 Tab 11/09/2019 11/14/2019 documented in this encounter Progress Notes * Cristiane Shirley MD - 11/09/2019 2:30 PM EST Vitals: 11/09/19 1543 BP: 112/80 Temp: 97.1 ??F (36.2 ??C) TempSrc: Tympanic Weight: 276 lb (125.2 kg) Height: 5' 2 (1.575 m) SUBJECTIVE: Chief Complaint Patient presents with ??? Dysuria ??? Hemorrhoids ??? Ankle Pain left HPI: Dysuria This is a new problem. The current episode started in the past 7 days. The problem occurs every urination. The problem has been unchanged. Associated symptoms include frequency and urgency. Hemorrhoids This is a new problem. The current episode started in the past 7 days. The problem occurs constantly. The problem has been unchanged. Associated symptoms include fatigue. Pertinent negatives include no coughing. Pt is here today for dysuria and hemorrhoids that has been present for about a week. Pt is also experiencing left ankle pain and swelling for a few days Diabetes: Home reporting of sugars was [...] and if taking, added to med list. Hyperlipidemia: Last Lipid and liver panel has [...] reviewed with patient. Review of Systems Constitutional: Positive for fatigue. HENT: Negative. Respiratory: Negative for cough. Cardiovascular: Negative. Gastrointestinal: Negative. Genitourinary: Positive for dysuria, frequency and urgency. Musculoskeletal: Negative. Neurological: Negative. Hematological: Negative. Psychiatric/Behavioral: Negative. OBJECTIVE: Physical Exam Vitals signs and nursing note reviewed. Constitutional: General: She is not in acute distress. Appearance: She is well-developed. HENT: Head: Normocephalic and atraumatic. Right Ear: External ear normal. Left Ear: External ear normal. Eyes: Conjunctiva/sclera: Conjunctivae normal. Pupils: Pupils are equal, round, and reactive to light. Neck: Musculoskeletal: Normal range of motion and neck supple. Cardiovascular: Rate and Rhythm: Normal rate and regular rhythm. Heart sounds: Normal heart sounds. No murmur. Pulmonary: Effort: Pulmonary effort is normal. No respiratory distress. Breath sounds: Normal breath sounds. No wheezing or rhonchi. Abdominal: General: Bowel sounds are normal. There is no distension. Palpations: Abdomen is soft. Tenderness: There is no abdominal tenderness. There is no guarding or rebound. Musculoskeletal: Normal range of motion. Lymphadenopathy: Cervical: No cervical adenopathy. Skin: General: Skin is warm. Findings: No rash. Neurological: General: No focal deficit present. Mental Status: She is alert and oriented to person, place, and time. Cranial Nerves: No cranial nerve deficit. Psychiatric: Mood and Affect: Mood normal. Behavior: Behavior normal. Thought Content: Thought content normal. Judgment: Judgment normal. Assessment Diagnoses and all orders for this visit: Type 2 diabetes mellitus without complication, without long-term current use of insulin ([facility]) (Chronic) - LIPID SCREEN; Future - COMPREHENSIVE METABOLIC PANEL; Future - HEMOGLOBIN A1C; Future - CBC WITH DIFF; Future - TSH REFLEX; Future stable Dysuria - POCT URINALYSIS DIPSTICK - URINE CULTURE (NO STAIN); Future UTI (urinary tract infection), uncomplicated - ciprofloxacin HCl (CIPRO) 250 mg Oral Tablet; Take 1 Tab by mouth 2 times daily for 5 days. Dispense: 10 Tab; Refill: 0 documented in this encounter Miscellaneous Notes * Patient Instructions - Cristiane Shirley MD - 11/09/2019 2:30 PM EST Images from the original note were [...] may be eligible for an e-Visit through [facility]. Please log on to your [...] 9:00 AM EST Appointment [facility] [address] [place] [address] Jomar Kim MD [address] [place] [address] documented as of this encounter Goals Goal Patient Goal Type Associated Problems Recent Progress Patient-Stated? Author Blood Pressure < 140/90 Blood Pressure 110/72(04/27 2:44 PM EDT) No Rachel Rogers, MULU BMI (Calculated) < 30 General 50.9( 024 2:44 PM EDT) No Rachel Rogers, MULU Eat better, exercise, reach an ideal body weight General No Ni Clinton, metal punch press operator Healing General On track(2018 9:18 AM [...] neuropathy weekly. ?? Refer to PCP and/or Wood Heel Flap Rubber, Vascular Specialist as indicated. ?? Monitor patient compliance with wound care, diabetes management and proper offloading. Stay Tobacco Free Lifestyle On track(2020 10:23 AM EDT) Wendy Moon LPN HEMOGLOBIN A1C < 7.0 Result Component 5.6(11/09/19 3:04 PM EST) No Rachel Rogers RMA documented as of this encounter Procedures Procedure Name Priority Date/Time Associated Diagnosis Comments TSH REFLEX Routine 11/09/2019 4:17 PM EST Type 2 diabetes mellitus without complication, without long-term current use of insulin (HCC) CBC WITH DIFF Routine 11/09/2019 4:17 PM EST Type 2 diabetes mellitus without complication, without long-term current use of insulin (HCC) HEMOGLOBIN A1C Routine 11/09/2019 4:17 PM EST Type 2 diabetes mellitus without complication, without long-term current use of insulin (HCC) LIPID SCREEN Routine 11/09/2019 4:17 PM EST Type 2 diabetes mellitus without complication, without long-term current use of insulin (HCC) COMPREHENSIVE METABOLIC PANEL Routine 11/09/2019 4:17 PM EST Type 2 diabetes mellitus without complication, without long-term current use of insulin (HCC) POCT URINALYSIS DIPSTICK Routine 11/09/2019 3:53 PM EST Dysuria URINE CULTURE (NO STAIN) Routine 11/09/2019 3:52 PM EST Dysuria documented in this encounter Results * TSH REFLEX (11/09/2019 4:17 PM EST) TSH Reflex 1.350 0.270 - 4.200 mcIU/mL 11/09/2019 8:22 PM EST [facility] [facility] [email or web address] Blood VENOUS BLOOD / Unknown Venipuncture / Unknown 11/09/2019 4:17 PM EST 11/09/2019 4:17 PM EST Narrative [facility] - 11/09/2019 8:22 PM EST Ingestion of min doses of biotin (>5 mg/day) taken within 8 hours of drawing blood sample can interfere with this immunoassay test. us Cristiane Shirley MD CHEMISTRY ORDERABLES Final Res ult [facility] [address] [facility] , [place] [address] * (ABNORMAL) CBC WITH DIFF (11/09/2019 4:17 PM EST) WBC 12.1(H) 3.7 - 10.3 x10(3)/mcL 11/09/2019 7:44 PM EST [facility] RBC 4.15 3.90 - 5.20 x10(6)/mcL 11/09/2019 7:44 PM EST [facility] Hgb 11.3 11.2 - 15.7 g/dL 11/09/2019 7:44 PM EST [facility] Hct 37.6 34.0 - 45.0 % 11/09/2019 7:44 PM EST [facility] MCV 90.6 80.0 - 100.0 fL 11/09/2019 7:44 PM EST [facility] MCH 27.2 26.0 - 34.0 pg 11/09/2019 7:44 PM EST [facility] MCHC 30.1(L) 30.7 - 35.5 g/dL 11/09/2019 7:44 PM EST [facility] RDW 15.5(H) <=14.9 % 11/09/2019 7:44 PM EST [facility] Platelet 320 155 - 369 x10(3)/mcL 11/09/2019 7:44 PM EST [facility] MPV 10.1 8.8 - 12.5 fL 11/09/2019 7:44 PM EST [facility] Neut Percent 69.3 % 11/09/2019 7:44 PM EST [facility] Comment:Neutrophils equals s egs plus bands Imm Gran% 0.4 % 11/09/2019 7:44 PM EST [facility] Comment:Automated count of m etamyelocytes, myelocytes and promyelocytes. Lymph Percent 19.5 % 11/09/2019 7:44 PM EST [facility] Iron Percent 7.5 % 11/09/2019 7:44 PM EST [facility] Eos Percent 2.9 % 11/09/2019 7:44 PM EST [facility] Baso Percent 0.4 % 11/09/2019 7:44 PM EST [facility] Neut # 8.4(H) 1.6 - 6.1 x10(3)/mcL 11/09/2019 7:44 PM EST [facility] Comment:Neutrophils equals s egs plus bands IMMGRAN# 0.1 0.0 - 0.1 x10(3)/mcL 11/09/2019 7:44 PM EST [facility] Comment:Automated count of m etamyelocytes, myelocytes and promyelocytes. An absolute IG <0.1 is reported as 0.0. Lymph # 2.4 1.2 - 3.9 x10(3)/mcL 11/09/2019 7:44 PM EST [facility] Iron # 0.9 0.3 - 0.9 x10(3)/mcL 11/09/2019 7:44 PM EST [facility] Eos# 0.4 0.0 - 0.5 x10(3)/mcL 11/09/2019 7:44 PM EST [facility] Baso # 0.1 0.0 - 0.1 x10(3)/mcL 11/09/2019 7:44 PM EST [facility] Blood VENOUS BLOOD / Unknown Venipuncture / Unknown 11/09/2019 4:17 PM EST 11/09/2019 4:17 PM EST Cristiane Shirley MD HEMATOLOGY ORDERABLES Final Re sult Performing Organization Address [facility] de Phone Number [facility] [employer] [address] , [place] [address] * (ABNORMAL) HEMOGLOBIN A1C (11/09/2019 4:17 PM EST) Hgb A1C 6.3(H) 4.2 - 5.6 % 11/09/2019 8:12 PM EST [facility] [facility] Est. Avg Glucose 134 mg/dL 11/09/2019 8:12 PM EST [facility] [employer] [email or web address] Blood VENOUS BLOOD / Unknown Venipuncture / Unknown 11/09/2019 4:17 PM EST 11/09/2019 4:17 PM EST Narrative [facility] [facility] [email or web address] - 11/09/2019 8:12 PM EST REFERENCE RANGE: Normal: 4.0-5.6% Pre-diabetes: 5.7-6.4% Provisional diagnosis of diabetes: >6.4% Hgb F>10% and anything which shortens red cell survival, such as hemolytic anemia, or unstable hemoglobin variants such as HbSS, HbSC, or HbCC, will lower the HbA1c value associated with a given level of glycemic control. ? Cristiane Shirley MD CHEMISTRY ORDERABLES Final Res ult Performing Organization Address [facility] de Phone Number [facility] [employer] [address] [place] [address] , [place] [address] * (ABNORMAL) COMPREHENSIVE METABOLIC PANEL (11/09/2019 4:17 PM EST) Sodium 141 136 - 145 mmol/L 11/09/2019 8:22 PM EST [email or web address] Potassium 4.0 3.5 - 5.0 mmol/L 11/09/2019 8:22 PM EST [facility] [email or web address] Chloride 101 98 - 107 mmol/L 11/09/2019 8:22 PM EST [facility] Total CO2 28 22 - 29 mmol/L 11/09/2019 8:22 PM EST [facility] Anion Gap 12 7 - 16 mmol/L 11/09/2019 8:22 PM EST [facility] Calcium 10.1 8.8 - 10.4 mg/dL 11/09/2019 8:22 PM EST [facility] Glucose Lvl 106(H) 82 - 100 mg/dL 11/09/2019 8:22 PM EST [facility] BUN 12 8 - 23 mg/dL 11/09/2019 8:22 PM EST [facility] Creatinine 0.79 0.51 - 1.30 mg/dL 11/09/2019 8:22 PM EST [facility] Albumin 4.0 3.2 - 4.6 gm/dL 11/09/2019 8:22 PM EST [facility] Total Protein 7.4 6.4 - 8.3 gm/dL 11/09/2019 8:22 PM EST [facility] Bili Total 0.2 0.1 - 1.3 mg/dL 11/09/2019 8:22 PM EST [facility] ALT 12 <=41 U/L 11/09/2019 8:22 PM EST [facility] AST 13 <=40 U/L 11/09/2019 8:22 PM EST [facility] Alk Phos 78 36 - 123 U/L 11/09/2019 8:22 PM [facility], [facility] GFR Afr Am 92 >=60 mL/min/1.7 3 m2 11/09/2019 8:22 PM [facility] GFR Non Afr Am 80 >=60 mL/min/1.7 3 m2 11/09/2019 8:22 PM [facility] Comment: This estimated GFR was calculated [...] VENOUS BLOOD / Unknown Venipuncture / Unknown 11/09/2019 4:17 PM EST 11/09/2019 4:17 PM EST us Cristiane Shirley MD CHEMISTRY ORDERABLES Final Res ult [facility] [employer] [address] [facility], [address] [place] [id number] [facility] [address] [place] [id number] * (ABNORMAL) LIPID SCREEN (11/09/2019 4:17 PM EST) [facility] Signature Cholesterol 166 <200 mg/dL 11/09/2019 8:22 PM EST [facility] [employer] Comment: < 200 ?Desirable 200 - 239 ? Borderline High >= 240 ?High Triglyceride 151(H) <150 mg/dL 11/09/2019 8:22 PM EST [employer] [facility] Comment: < 150 ? Normal 150 - 199 ?Borderline High 200 - 499 ?High ??>= 500 ? Very High HDL 50 >=40 mg/dL 11/09/2019 8:22 PM EST [facility] Comment: ??> 60 ?Optimal 40 - 60 ?Acceptable ?? < 40 ?Low LDL Calculated 86 <100 mg/dL 11/09/2019 8:22 PM EST [employer] Comment: < 100 ?Optimal 100 - 129 ? Near or above optimal 130 - 159 ? Borderline High 160 - 189 ? High >= 190 ?Very High Non-HDL-C Calculated 116 <=129 mg/dL 11/09/2019 8:22 PM EST [facility] Comment: <130 ?Desirable 130-159 Above Desirable 160-189 Borderline High 190-219 High >= 220 ??Very High Fasting Specimen? Yes None 020 8:22 PM EST [facility] Blood VENOUS BLOOD / Unknown Venipuncture / Unknown 11/09/2019 4:17 PM EST 11/09/2019 4:17 PM EST Cristiane Shirley MD CHEMISTRY ORDERABLES Final Res ult [facility] [address] [facility] , [place] [address] * POCT URINALYSIS DIPSTICK (11/09/2019 3:53 PM EST) Color, UA [facility] Clarity, UA SE[facility] Glucose, UA norm G/DL% SEP [facility] Bilirubin, UA neg POS/NEG [facility] Ketones, UA neg POS/NEG SEP automotive design drafter Grav, UA 1.015 1.001 - 1.035 G/DL SEP OFFICE Blood, UA 250 POS/NEG SE[facility] pH, UA 6 5.0 - 8 SEP [facility]ICE Protein, UA trace POS/NEG SEP [facility] Urobilinogen, UA norm 0.2 - 1.0 MG/DL SEP [facility] Leukocytes, UA ++ POS/NEG SEP [facility] Nitrite, UA + POS/NEG SEP [facility] UA Appear POC SEP [facility] Lot Number [id number] SEP [facility] Expiration Date 11/05/20 SEP OFFICE SeriAl # SEP OFFICE Urine 11/09/2019 3:53 PM EST Cristiane Shirley MD POINT OF CARE TEST ORDERABLES Final Result Performing Organization Address [facility]/ZIP Co de Phone Number SEP OFFICE * (ABNORMAL) URINE CULTURE (NO STAIN) (11/09/2019 3:52 PM EST) Culture Positive Growth(A) 11/11/2019 12:41 PM EST [facility] Culture >[id number] CFU/mL Escherichia coli SUSCEPTIBI LITY RESULT 11/11/2019 12:41 PM EST [facility] Urine URINE SPECIMEN COLLECTION, CLEAN CATCH / Unknown 11/09/2019 3:52 PM EST 11/09/2019 3:52 PM EST Narrative Organism Antibiotic Method Susceptibility Escherichia coli Amikacin SUSCEPTIBILITY RESULT <=16 ug/mL: Susceptible Escherichia coli Amoxicillin/Clavulanate SUSCEPTIBILIT Y RESULT <=4/2 ug/mL: Susceptible Escherichia coli Ampicillin SUSCEPTIBILITY RESULT <=8 ug/mL: Susceptible Escherichia coli Ampicillin/Sulbactam SUSCEPTIBILITY R ESULT <=1/0.5 ug/mL: Susceptible Escherichia coli Aztreonam SUSCEPTIBILITY RESULT <=4 ug/mL: Susceptible Escherichia coli Cefazolin SUSCEPTIBILITY RESULT <=2 ug/mL: Susceptible Escherichia coli Cefepime SUSCEPTIBILITY RESULT Escherichia coli Cefotaxime SUSCEPTIBILITY RESULT Escherichia coli Cefoxitin SUSCEPTIBILITY RESULT <=8 ug/mL: Susceptible Escherichia coli Ceftazidime SUSCEPTIBILITY RESULT Escherichia coli Ceftriaxone SUSCEPTIBILITY RESULT Escherichia coli Cefuroxime SUSCEPTIBILITY RESULT Escherichia coli Ciprofloxacin SUSCEPTIBILITY RESULT >2 ug/mL: Resistant Escherichia coli Ertapenem SUSCEPTIBILITY RESULT <=0.5 ug/mL: Susceptible Escherichia coli Gentamicin SUSCEPTIBILITY RESULT <=1 ug/mL: Susceptible Escherichia coli Imipenem SUSCEPTIBILITY RESULT <=0.5 ug/mL: Susceptible Escherichia coli Levofloxacin SUSCEPTIBILITY RESULT >4 ug/mL: Resistant Escherichia coli Meropenem SUSCEPTIBILITY RESULT <=1 ug/mL: Susceptible Escherichia coli Nitrofurantoin SUSCEPTIBILITY RESULT <=32 ug/mL: Susceptible Escherichia coli Piperacillin/Tazobactam SUSCEPTIBILIT Y RESULT <=4 ug/mL: Susceptible Escherichia coli Tetracycline SUSCEPTIBILITY RESULT <=4 ug/mL: Susceptible Escherichia coli Tigecycline SUSCEPTIBILITY RESULT Escherichia coli Tobramycin SUSCEPTIBILITY RESULT <=1 ug/mL: Susceptible Escherichia coli Trimethoprim/Sulfame tho xazole SUSCEPTIBILITY RESULT >2/38 ug/mL: Resistant us Cristiane Shirley MD MICROBIOLOGY - GENERAL ORDERAB LES Final Result Performing Organization Address City/State/[facility] Co de Phone Number [facility] [employer], [address] , [place] [address] documented in this encounter Visit Diagnoses Diagnosis Type 2 diabetes mellitus without complication, without long-term current use of insulin (HCC)- Primary Dysuria UTI (urinary tract infection), uncomplicated Urinary tract infection, site not specified documented in this encounter Care Teams Mast Maker Relationship Specialty Start Date End Date Cristiane Shirley MD [address] [place] [address] PCP - General Family Medicine 08/20/18 12/29/23 Garett Holt MD Internal Medicine-Gastroenterology 12/22/12 Ruiz Stokes MD [address] [place] [address] Internal Medicine-Cardiovascular Disease 07/25/14 Yenny Schwab MD [address] [place] [address] Internal Medicine-Rheumatology 12/11/16 documented as of this encounter
--- OUTSIDE RECORDS SUMMARY | 2024-07-22 16:08 | XMS_ITS | Encounter Summary ---
Author Organization [place] [address] Care Team Providers Care Brusher And Shearer Name Role Phone Garett Holt MD Unavailable [phone] Ruiz Stokes MD Unavailable [phone] Yenny Schwab MD Unavailable [phone] Cristiane Shirley MD Primary Care Provider [phone] Reason for Visit * Reason Onset Date Comments ED Follow-Up Call 11/22/2019 ED Follow-Up Call 11/23/2019 Encounter Details Date Type Department Care Team (Late st Contact Info) Description 11/22/2019 Patient Outreach [facility] [address] [place] [address] Juju Gilliam, HEAD RIGGER Follow-Up Call; ED Follow-Up Call Social History Tobacco Use [...] Assessment Author No 09/14/2019 10:05 AM EST MorganBrynn, RMA * Is the person blind or does he/she have serious difficulty seeing even when wearing glasses? Answer Date of Assessment Author No 09/14/2019 10:05 AM EST MorganBrynn Faye, RMA * Does this person have serious difficulty walking or climbing stairs? Answer Date of Assessment Author No 09/14/2019 10:05 AM EST MorganBrynn Faye, RMA * Does this person have difficulty dressing or bathing? Answer Date of Assessment Author No 09/14/2019 10:05 AM EST MorganBrynn Faye, RMA * Because of a physical, mental or emotional condition, does this person have difficulty doing errands alone such as visiting a doctor's office or shopping? Answer Date of Assessment Author No 09/14/2019 10:05 AM EST [facility] Brynnadele Mckinney, RMA documented as of this encounter Mental Status * Because of a physical, mental or emotional condition, does this person have serious difficulty concentrating, remembering or making decisions? Answer Entry Date Author No 01/23/2019 9:05 AM EDT Nitin Yousif CMA documented in this encounter Progress Notes * Juju Kaba RN - 11/23/2019 9:11 AM EDT ED Follow Up Regarding the most recent emergency room visit: Number of ED visits in last year: 1 Contact made?: No If no, did you leave a message?: Yes (Comment: ok per [facility]) Was letter sent?: Yes (Comment: to my chart account) Medical reason for visit: Bladder prolapse, female, acquired If patient is unable to fill medications, please consider a social work consult if criteria met: * Juju Kaba, RN - 11/22/2019 1:30 PM EDT ED Follow Up Regarding the most recent emergency room visit: Number of ED visits in last year: 1 Contact made?: No If no, did you leave a message?: Yes (Comment: ok per [facility]) Medical reason for visit: Bladder prolapse, female, acquired If patient is unable to fill medications, please consider a social work consult if criteria met: documented in this encounter Plan of Treatment Upcoming Encounters Date Type Department Care Team (Late st Contact Info) Description 07/29/2024 9:00 AM EST Appointment [facility] [address] [facility] [place], [place] [id number] Jomar Kim MD [address] [place] [address] documented as of this encounter Goals Goal Patient Goal Type Associated Problems Recent Progress Patient-Stated? Author Blood Pressure < 140/90 Blood Pressure 110/72(04/27 2:44 PM EDT) No Rachel Rogers RMA BMI (Calculated) < 30 General 50.9( 2:44 PM EDT) No Rachel Rogers RMA Eat better, exercise, reach an ideal body weight General No Ni Clinton, montessori toddler teacher Healing General On track(2018 9:18 AM [...] neuropathy weekly. ?? Refer to PCP and/or Time Cycle Operator, Vascular Specialist as indicated. ?? Monitor patient compliance with wound care, diabetes management and proper offloading. Stay Tobacco Free Lifestyle On track(2020 10:23 AM EDT) Wendy Moon LPN HEMOGLOBIN A1C < 7.0 Result Component 5.6(11/09/19 3:04 PM EST) No Rachel Rogers RMA documented as of this encounter Visit Diagnoses Not on filedocumented in this encounter Care Teams Brusher And Shearer Relationship Specialty Start Date End Date Cristiane Shirley MD [address] [place] [address] PCP - General Family Medicine 08/20/18 12/29/23 Garett Holt MD Internal Medicine-Gastroenterology 12/22/12 Ruiz Stokes MD [address] [place], [place] [id number] Internal Medicine-Cardiovascular Disease 07/25/14 Yenny Schwab MD [address] [place] [id number] Internal Medicine-Rheumatology 12/11/16 documented as of this encounter
--- OUTSIDE RECORDS SUMMARY | 2024-07-22 16:08 | XMS_ITS | Encounter Summary ---
Author Organization [place] [address] Care Team Providers Care Crane Man Name Role Phone Garett Holt MD Unavailable [phone] Ruiz Stokes MD Unavailable [phone] Yenny Schwab MD Unavailable [phone] Cristiane Shirley MD Primary Care Provider [phone] Reason for Visit * Reason Comments Medication Refill Encounter Details Date Type Department Care Team (Late st Contact Info) Description 11/28/2019 Refill [facility] [address] [place] [address] Cristiane Shirley MD [address] [place] [address] Medication Refill Social History Tobacco Use Types [...] encounter Miscellaneous Notes * Telephone Encounter - Cesilia Sorto CPhT - 11/29/2019 10:57 AM EDT Medication refill requested too soon. Refill request denied. Refills sent on 09/14/19 #90 w 1 refill. Vivek contacted pharmacy and verified that refills are on file. Patient notified via [employer] (if MyChart active). documented in this encounter Plan of Treatment Upcoming Encounters Date Type Department Care Team (Late st Contact Info) Description 07/29/2024 9:00 AM EST Appointment [facility] [address] [place] [address] Jomar Kim MD [address] [place] [address] documented as of this encounter Goals Goal Patient Goal Type Associated Problems Recent Progress Patient-Stated? Author Blood Pressure < 140/90 Blood Pressure 110/72(04/27 2:44 PM EDT) No Rachel Rogers RMA BMI (Calculated) < 30 General 50.9( 024 2:44 PM EDT) No Rachel Rogers RMA Eat better, exercise, reach an ideal body weight General No Ni Clinton, airborne weapons technical manager Healing General On track(2018 9:18 AM [...] neuropathy weekly. ?? Refer to PCP and/or [place]brette, Vascular Specialist as indicated. ?? Monitor patient compliance with wound care, diabetes management and proper offloading. Stay Tobacco Free Lifestyle On track(2020 10:23 AM EDT) No Wendy Espinoza LPN HEMOGLOBIN A1C < 7.0 Result Component 5.6(11/09/19 3:04 PM EST) No Rachel Rogers RMA documented as of this encounter Visit Diagnoses Not on filedocumented in this encounter Care Teams Crane Man Relationship Specialty Start Date End Date Cristiane Shirley MD [address] [place] [address] PCP - General Family Medicine 08/20/18 12/29/23 Garett Holt MD Internal Medicine-Gastroenterology 12/22/12 Ruiz Stokes MD [address] [place], [place] [id number] Internal Medicine-Cardiovascular Disease 07/25/14 Yenyn Schwab MD [address] [facility] [address] [place] [address] Internal Medicine-Rheumatology 12/11/16 documented as of this encounter
--- OUTSIDE RECORDS SUMMARY | 2024-07-22 16:08 | XMS_ITS | Encounter Summary ---
Author Organization [facility] [place] [address] Care Team Providers Care Game Designer Name Role Phone Garett Holt MD Unavailable [phone] Ruiz Stokes MD Unavailable [phone] Yenny Schwab MD Unavailable [phone] Cristiane Pop MD Primary Care Provider [phone] Reason for Visit * Auth/Cert/Inpt Specialty Diagnoses / Procedures Referred By Contac t Referred To Contact Diagnoses Abdominal wall hernia abdominal wall hernia Referral ID Status Reason Start Date Expiration Date Visits Re quested Visits Authorized [id number] 1 1 Encounter Details Date Type Department Care Team (Late st Contact Info) Description 04/18/2020 6:00 PM EDT - 04/18/2020 8:30 PM EDT Surgery EDG PERIOP One [facility] [place] [address] Regan Butts MD [address] [place] [address] [place] [id number] STANLEY ROBOTIC VENTRAL/INCISIONAL HERNIA REPAIR Surgery Details Date/Time Status Location OR Service Patient Class Case Class Case Type Trauma Case? 04/18/2020 6:00 PM Posted EDG MAIN OR EDG Room 12 General Inpatient Urgent Panel 1 Procedure LRB Anes Op Region Wound Class Comments DAVINCI ROBOTIC VENTRAL/INCISIONAL HERNIA REPAIR N/A General Clean DAVINCI ROBOTIC VENTRAL HERNIA REPAIR WITH MESH Surgeon Surgeon Role Service Panel Regan Butts MD Primary General 1 Special Needs KAMILA documented in this encounter Social History Tobacco [...] Sign Reading Time Taken Comments Blood Pressure 97/40 04/18/2020 3:25 PM EDT Pulse 62 04/18/2020 3:25 PM EDT Temperature 36.5 ??C (97.7 ??F) 04/18/2020 3:25 PM ED T Respiratory Rate 18 04/18/2020 3:25 PM EDT Oxygen Saturation 93% 04/18/2020 3:25 PM EDT Inhaled Oxygen Concentration - - [...] Kee MD - 04/28/2020 8:46 PM EDT [facility] Discharge Summary Patient Name: Alyssa Campos : [...] Your Medications These medications were sent to [facility] [address] [place] [address] - [address] - [phone] [address] ?? oxybutynin 10 mg Tr24 ?? oxyCODONE-acetaminophen 5-325 mg Tab Condition at Discharge: good Disposition: Home Follow-up: Regan Butts MD [address] [address] In 2 weeks For wound re-check [facility] [address] [place] [phone] Cristiane Pop MD 19 [facility] [address] In 3 days Hospital Follow-Up Colby Kee MD 04/29/2020 documented in this encounter Discharge Instructions * Discharge Instructions* Kenyon Burkett APRN - 2020 9:53 AM EDT Alyssa Campos, [...] on- call physician, please proceed to an [facility], or the closest ED. documented [...] 1 fluticasone propionate (FLONASE) 50 mcg/actuation Nasl [place], SuspensionIndicati ons:ETD (Eustachian tube dysfunction), right Use [...] Code Departure Means Destination Home or Self Longterm documented in this encounter Progress Notes * [...] Pt states she feels safe transporting via [facility]. Pt states understanding of all d/c medications, follow up appointments, and care needs. Pt states no other needs. SW notified Mckenna lopez with [facility] of d/c this date. Nurse updated. No other needs identified. * Adriane Webb MSW - 04/28/2020 2:37 PM EDT 04/28 TONIE Update: TONIE received call from Concha with [facility] who stated that pt's appeal wasdenied. Note pt walked 413ft with staff on 04/27/2020 and 60 (X6) ft with PT this date. TONIE met with pt at bedside and discussed [...] preference in HH agency. Referral sent to [facility]. Per Ilda with [facility], they are able to accept and their [place] office will service pt. HH orders in [...] call back. Nurse updated. Message sent to to update. SW/CC following. * Colby Kee [...] TONIE called and spoke to Concha with [facility] and inquired about appeal process. [...] Facility (IRF) Time In / Time Out [id number] IP PT Treatment Minutes 39 (39 gait) The [...] Fowlers Sitting Pulse: 93 71 78 Resp: 18 18 18 Temp: 97.7 ??F (36.5 ??C) 97.3 ??F [...] but did review the case with the MANAGER CLINICAL APPLICATIONS. I agree with their assessment and plan. [...] Rider, EHSAN,LD - 04/27/2020 10:36 AM EDT [facility] Nutrition Follow-up Evidence Supported Diagnosis: Per assessment [...] BM:04/25/20 Stool assessment:: Stool Occurrence: 1 (04/25/20 0505) Pertinent Labs: Recent Labs 04/21/20 0937 04/23/20 [...] Hospitalist okayed d/c. ?? * Alvaro Fernandez HEAD HOST/HOSTESS - 04/27/2020 10:05 AM EDT 04/27/20 1005 [...] Park - 2020 1:40 PM EDT 04/26/20 1339 Pastoral Care Encounter Visited With Patient Date of visit 04/26/20 Visit Type Follow-up Need to follow-up? Yes Pastoral Care Plan/Intervention Plan/Intervention Active Listening;Continue to Follow;Prayer * Colby Kee MD - 2020 1:03 [...] precert complete. TONIE called and spoke to Boyle with [facility] who stated they received the denial this date and have initiated the appeal process. Await insurance determination. TONIE requested PT to work with pt again [...] Semi Fowlers Sitting Pulse: 74 93 Resp: 18 Temp: 98.5 ??F (36.9 ??C) 97.7 ??F [...] and there are no changes. * Heriberto Shirley, - 04/24/2020 12:20 PM EDT Images from the original note were not included. PROGRESS NOTE Assessment/Plan: ??*S/p??Ventral hernia??repair ?Ileus -??Surgery following -??DVT??ppx, GI??ppx while NPO ?Temporal arteritis (HCC) ?PMR (polymyalgia rheumatica) (HCC) -??Followed years ago by rheum -??Biopsy negative but clinically suspected by rheum -??On no treatment currently ?Type 2 diabetes mellitus without complication (HCC) - FSBS with SSI ?? Dispo:? To snf this week VTE Prophylaxis: Anti-Embolism Intervention: Refused Qualifying Pharmacologic Prophylaxis enoxaparin (LOVENOX) injection 40 mg DAILY - LMWH/Xa Active Hospital Problems Diagnosis ??? *Ventral hernia ??? Incisional hernia, incarcerated ??? Obesity, Class III, BMI 40-49.9 (morbid obesity) (HCC) ??? Type 2 diabetes mellitus without complication (HCC) Subjective: Eating jello Pain controlled aaox3 Objective: [...] Rider RD,LD - 04/24/2020 11:40 AM EDT [facility] Nutrition Assessment Evidence supported diagnosis: Moderate protein-calorie [...] BIOPSY ; Surgeon: Christa Chavez MD; Location: [facility] OR; Service: General ??? CARDIAC CATHETERIZATION [...] MESH ; Surgeon: Regan Butts MD; Location: [facility]; Service: General I/O last 3 completed [...] OR ondansetron, oxyCODONE Clinical Course: Pt s/p Davinci robot ventral hernia repair with mesh. Passed NG clamp trial and advanced to clear liquids. * Adriane Webb MSW - 04/24/2020 10:08 AM EDT 04/24 SW Update: aaron Shah with [employer] initiated this date. Await insurance determination. SW/CC [...] Following Normal Memory Intact Communication Impaired Hearing YAKUTAT Pain Screening Pain Rating 9 Pain Location [...] on,non-skid socks on for safety. * Lisbet Vogel, RN - 04/21/2020 9:23 PM EDT Message to Renetta Hall APRN about starting possible IVF? Is NPO. * Eddy aPrk - 04/21/2020 2:52 PM EDT 04/21/20 1451 Pastoral Care Encounter Visited With Patient Date of visit 04/21/20 Visit Type Initial Need to follow-up? Yes Faith Needs Pastoral care brochure;Bible Spiritual Needs Denomination? Amish Faith Affiliation None Pastoral Care Issues Pastoral Care Issues Coping;Loneliness Coping Resources Miranda;Family;Friends;Prayer;Scripture Pastoral Care Plan/Intervention Plan/Intervention Active Listening;Continue to Follow;Prayer * Adriane Webb MSW - 04/21/2020 12:10 PM EDT 04/21 SW Update: note PT recommendation of Inpatient Rehab Facility (IRF);Detention Facility (SNF). SW met with pt at bedside and discussed. SW provided facility lists and Medicare.gov information sheet. Pt states interest in [facility] rehab. Referral sent. Awaiting response. [...] Semi Fowlers Pulse: 86 82 85 Resp: 18 Temp: 100.4 ??F (38 ??C) 97.3 ??F [...] Following Normal Memory Intact Communication Impaired Hearing YAKUTAT Additional comments Pt very fearful, reports a [...] 5-6x/week Recommendation PT Recommendation Inpatient Rehab Facility (IRF);Detention Facility (SNF) Additional PT discharge information feel [...] Following Normal Memory Intact Communication Impaired Hearing YAKUTAT Additional comments Pt very fearful, reports a near fall the other night and is now very fearful tomkari, later stated, I just need to do [...] 5-6x/week Recommendation PT Recommendation Inpatient Rehab Facility (IRF);Detention Facility (SNF) Additional PT discharge information feel [...] Shirley DO 04/20/2020 12:25 PM * Kamila Coughlin, RYAN - 04/20/2020 11:53 AM EDT POD# 2 [...] Heriberto Shirley DO 04/19/2020 11:16 AM * Kamila Coughlin, MANAGER CLINICAL APPLICATIONS - 04/18/2020 1:45 PM EDT GENERAL SURGERY [...] Interpretation by physician to follow. [facility] Test Date: 2020-04-18 Pat Name: ALYSSA CAMPOS Department: DEPID Room: 2318 Gender: Female Gold Stamper: Martell : 1955 Requested By: RENETTA MILES Order Number: [id number] [place] MD: Alvaro Membreno MD Measurements Intervals [place] Rate: 63 P: 53 OK: 211 QRS: -34 QRSD: 94 T: 21 [...] Class III, BMI 40-49.9 (morbid obesity) ([facility]) -encourage weight loss ?? Type 2 diabetes mellitus without complication (HCC) -ssi, follow bg and keep 140-180 while here ?? *Ventral hernia -surgery following -dvt ppx, gi ppx while npo ?? 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 No Activities of Daily Living Prior to [...] Discussed discharge plans with Care Team at [facility] Yes, with nurse in attendance;Yes, with doctor [...] Cristiane Pop. Pt states her pharmacy is [facility] in [place]. Pt states she can generally afford all [...] in this encounter H&P Notes * Heriberto Shirley, - 04/17/2020 9:57 AM EDT [facility] History and Physical Name: Alyssa aCmpos ADDRESS: [address] [place] [id number] : 1955 AGE: 64 y.o. Admitting Physician: [...] ??? fluticasone propionate (FLONASE) 50 mcg/actuation Nasl [place], Suspension Use 1 spray(s) in eachnostril once [...] ; Surgeon: Christa Chavez MD; Location: [facility]; Service: General ??? CARDIAC CATHETERIZATION 04/2015 ??? CHOLECYSTECTOMY 1989 ??? COLONOSCOPY ??? COLONOSCOPY 02/17/2013 Surgeon: Garett Holt MD; Location: [facility]; Service: ??? DENTAL SURGERY upper and lower teeth removed ??? UPPER GASTROINTESTINAL ENDOSCOPY ??? UPPER GASTROINTESTINAL ENDOSCOPY 02/17/2013 Surgeon: Garett Holt MD; Location: [facility]; Service: Social History Socioeconomic History ??? [...] Oral 62 18 95 % -- -- 04/16/20 2331 126/47 97.8 ??F (36.6 ??C) Oral [...] 40-49.9 (morbid obesity) (HCC) -encourage weight loss Type 2 diabetes mellitus without complication (HCC) -ssi, follow bg and keep 140-180 while here *Ventral hernia -surgery following -dvt ppx, gi ppx while npo Temporal arteritis (HCC) PMR (polymyalgia rheumatica) (HCC) [...] affected the care of the patient today. Christy Shirley DO [facility] Hospitalist 04/17/2020 1:07 PM documented in this encounter Procedure Notes * Regan Butts MD - 04/18/2020 11:31 PM EDT [facility] ?? OPERATIVE/PROCEDURE NOTE ?? Omero Alyssa Christa April 18, 2020 ?? Body mass index [...] Butts MD - 04/18/2020 9:25 PM EDT [facility] OPERATIVE/PROCEDURE NOTE Alyssa Campos April 18, 2020 Body mass index is 41.71 kg/m??. PRE-OP DIAGNOSIS: Ventral hernia with obstruction and without gangrene [K43.6] POST-OP DIAGNOSIS: Ventral hernia with obstruction and without gangrene [K43.6] PROCEDURE(S): Procedure(s): DAVINCI ROBOTIC VENTRAL HERNIA REPAIR WITH MESH 15x20 CM [facility] SURGEON(S): Surgeon(s) and Role: * Regan Butts MD - Primary ANESTHESIA: General SPECIMENS: * No specimens in log * ESTIMATED BLOOD LOSS (mls): 34 mL FINDINGS: Two adjacent defects with large amount of omentum contained. Small bowel with no acute findings of ischemia Regan Butts MD Date: 04/18/2020 documented in this encounter Consult Notes * Kamila Coughlin, MANAGER CLINICAL APPLICATIONS - 04/17/2020 8:41 AM EDTAssociated Order(s): IP [...] ; Surgeon: Christa Chavez MD; Location: [facility]; Service: General ??? CARDIAC CATHETERIZATION 04/2015 ??? CHOLECYSTECTOMY 1989 ??? COLONOSCOPY ??? COLONOSCOPY 02/17/2013 Surgeon: Garett Holt MD; Location: [facility]; Service: ??? DENTAL SURGERY upper and lower teeth removed ??? UPPER GASTROINTESTINAL ENDOSCOPY ??? UPPER GASTROINTESTINAL ENDOSCOPY 02/17/2013 Surgeon: Garett Holt MD; Location: [facility]; Service: Allergies Allergen Reactions ??? Amitriptyline [...] file Gets together: Not on file Attends advent service: Not on file Active member of [...] but did review the case with the MANAGER CLINICAL APPLICATIONS. I agree with their assessment and plan. [...] reach. * Utilization Review Notes - Anel Zuniga, MATT - 04/28/2020 11:29 AM EDT UR note [...] RN Outcome: Progressing 04/27/2020 1351 by Angela Cabrera, MATT Outcome: Progressing Bed alarm in place. All personal items within reach. Call light within reach Problem: Pain Management Goal: The patient's stated pain goal will be reached and maintained. Description: The patient's stated pain goal will be reached and maintained 04/27/2020 135 by Angela Cabrera RN Outcome: Progressing 04/27/2020 135 by Angela Cabrera RN Outcome: Progressing Pt c/o pain administered medication as ordered with good results. Problem: Knowledge Deficit Related to Disease Process/Treatment Description: Goal: Patient/family will be knowledgeable of disease process and treatment 04/27/2020 135 by Angela Cabrera RN Outcome: Progressing 04/27/2020 135 by Angela Cabrera RN Outcome: Progressing Educated on usage dosage and side effects Problem: Psycho/Social/Spiritual Goal: Patient will identify sources of support and strength 04/27/20201351 by Angela Cabrera RN Outcome: Progressing 04/27/20201350 by Angela Cabrera RN Outcome: Progressing Problem: Prevention: Skin Integrity - 76 Description: For Stage 1 Pressure Ulcer or a Erickson Scale Score of 18 or less Goal: Skin remains intact 04/27/20201351 by Angela Cabrera RN Outcome: Progressing 04/27/20201350 by Angela Cabrera RN Outcome: Progressing Wound care protocol Problem: Patient experience side effects from opiate medication Goal: Symptom management of side effects 04/27/20201351 by Angela Cabrera RN Outcome: Progressing Pt [...] of Care Note - Jen Raines RC Press Operator [employer] - 04/25/2020 8:42 PM EDT Images from [...] in lower right hand corner Alyssa Campos [phone] Dr. Shirley, The purpose of this query [...] questions or assistance please contact Chris Dunn, [facility] Automotive Worker [phone]) To respond to this query follow the [...] turn. * Utilization Review Notes - Anel Zuniga, MATT - 04/24/2020 1:04 PM EDT UR note [...] rehab * Plan of Care - Katherine Aguilar PT - 04/24/2020 9:59 AM EDT Problem: Ambulation Goal: Patient will ambulate safely Outcome: Progressing * RT Oxygen Plan of Care Note - Molly Barber RRT - 04/24/2020 9:33 AM EDT Images from [...] RT Oxygen Plan of Care Note - nAel Hutchison RRT - 04/21/2020 9:24 PM EDT [...] hrs * Utilization Review Notes - Anel Zuniga, MATT - 04/19/2020 6:48 AM EDT UR note [...] notes * Utilization Review Notes - Anel Zuniga RN - 04/17/2020 9:59 AM EDT UR note [...] 04/17/2020 6:21 AM EDT Patient admitted to [address] [place] [address]. Vitals are stable.Afebrile. Denies pain since she has been on the unit. Up to the bathroom with assist of one. For possible surgery today. PCraigRN documented in this encounter Plan of Treatment Upcoming Encounters Date Type Department Care Team (Late st Contact Info) Description 07/29/2024 9:00 AM EST Appointment [facility] [address] [place] [address] Jomar Kim MD [address] [place] [address] documented as of this encounter Goals Goal Patient Goal Type Associated Problems Recent Progress Patient-Stated? Author Blood Pressure < 140/90 Blood Pressure 110/72(04/27 2:44 PM EDT) No Rachel Rogers RMA BMI (Calculated) < 30 General 50.9( 024 2:44 PM EDT) No Rachel Rogers RMA Eat better, exercise, reach an ideal body weight General No Ni Clinton, marketing manager health communications Healing General On track(2018 9:18 AM EDT) [...] weekly. ?? Refer to PCP and/or Production Posting Clerk, Vascular Specialist as indicated. ?? Monitor [...] BIOPSY ; Surgeon: Christa Chavez MD; Location: [facility] OR; Service: General ? ? CARDIAC CATHETERIZATION 04/2015 ? ? CHOLECYSTECTOMY 1989 ? ? COLONOSCOPY ? ? COLONOSCOPY 02/17/2013 Surgeon: Garett Holt MD; Location: [facility]; Service: ? ? DENTAL SURGERY upper and lower teeth removed ? ? UPPER GASTROINTESTINAL ENDOSCOPY ? ? UPPER GASTROINTESTINAL ENDOSCOPY 02/17/2013 Surgeon: Garett Holt MD; Location: [facility]; Service: Allergies Allergen Reactions ? ? [...] file Gets together: Not on file Attends advent service: Not on file Active member of [...] evidence for bowel obstruction. - Kamila Coughlin, MANAGER CLINICAL APPLICATIONS 04/17/2020 ADMIT Routine 04/16/2020 11:27 PM EDT documented in this encounter Results * SCANNED RHYTHM STRIPS (05/01/2020 2:03 PM EDT) Anatomical Region Laterality Modality Other 05/01/2020 2:03 PM EDT us Unknown Unknown IMG ECG ORDERABLES Final Result * (ABNORMAL) GLUCOSE METER POC (04/28/2020 11:36 AM EDT) [facility] Glucose Meter POC 137(H) 70 - 100 mg/dL 04/28/2020 11:37 AM EDT [facility] Sample Type Capillary 04/28/2020 11:37 AM EDT [facility] Patient Status Non-Critical Patient 04/28/2020 11:37 AM EDT [facility] Blood BLOOD SPECIMEN / Unknown 04/28/2020 11:36 AM EDT 04/28/2020 11:37 AM EDT us Heriberto Shirley DO POINT OF CARE TEST ORDER DICK Final Result [facility] [address] [place], [place] [id number] * (ABNORMAL) CBC (04/28/2020 8:05 AM EDT) [...] pg 04/28/2020 8:30 AM EDT [facility] MCHC 29.6(L) 30.7 - 35.5 g/dL 04/28/2020 8:30 AM EDT [facility] RDW 15.3(H) <=14.9 % 04/28/2020 8:30 AM EDT [facility] Platelet 386(H) 155 - 369 x10(3)/mcL 04/28/2020 8:30 AM EDT [facility] MPV 9.2 8.8 - 12.5 fL 04/28/2020 8:30 AM EDT [facility] Blood VENOUS BLOOD / Unknown Venipuncture / Unknown 04/28/2020 8:05 AM EDT 04/28/2020 8:23 AM EDT Kenyon Burkett APRN HEMATOLOGY ORDERABLES Final Result [facility], [facility] [address] [facility], [place] [address] * (ABNORMAL) GLUCOSE METER POC (04/28/2020 7:39 AM EDT) [facility] Glucose Meter POC 131(H) 70 - 100 mg/dL 04/28/2020 7:40 AM EDT [facility] Sample Type Capillary 04/28/2020 7:40 AM EDT [facility] Patient Status Non-Critical Patient 04/28/2020 7:40 AM EDT [facility] Blood BLOOD SPECIMEN / Unknown 04/28/2020 7:39 AM EDT 04/28/2020 7:40 AM EDT Heriberto Shirley DO POINT OF CARE TEST ORDER DICK Final Result Performing Organization Address City/[facility]/ZIP Co de Phone Number [facility] [address] [place] [address] * (ABNORMAL) GLUCOSE METER POC (04/27/2020 9:13 PM EDT) Glucose Meter POC 128(H) 70 - 100 mg/dL 04/27/2020 9:14 PM EDT [facility] Sample Type Capillary 04/27/2020 9:14 PM EDT [facility] Patient Status Non-Critical Patient 04/27/2020 9:14 PM EDT [facility] Blood BLOOD SPECIMEN / Unknown 04/27/2020 9:13 PM EDT 04/27/2020 9:14 PM EDT Heriberto Flaquito Shirley POINT OF CARE TEST ORDER DICK Final Result Performing Organization Address [facility]/ZIP Co de Phone Number [facility] [address] [place] [address] * GLUCOSE METER POC (04/27/2020 6:42 PM EDT) Glucose Meter POC 99 70 - 100 mg/dL 04/27/2020 6:43 PM EDT [facility] Sample Type Capillary 04/27/2020 6:43 PM EDT [facility] Patient Status Non-Critical Patient 04/27/2020 6:43 PM EDT [facility] Blood BLOOD SPECIMEN / Unknown 04/27/2020 6:42 PM EDT 04/27/2020 6:43 PM EDT Heriberto Shirley DO POINT OF CARE TEST ORDER DICK Final Result [facility] [address] [place] [address] * (ABNORMAL) GLUCOSE METER POC (04/27/2020 12:46 PM EDT) Glucose Meter POC 113(H) 70 - 100 mg/dL 04/27/2020 12:47 PM EDT [facility] Sample Type Capillary 04/27/2020 12:47 PM EDT [facility] Patient Status Non-Critical Patient 04/27/2020 12:47 PM EDT [facility] Blood BLOOD SPECIMEN / Unknown 04/27/2020 12:46 PM EDT 04/27/2020 12:47 PM EDT Heriberto Shirley DO POINT OF CARE TEST ORDER DICK Final Result [facility] [address] [place] [address] * (ABNORMAL) BASIC METABOLIC PANEL (04/27/2020 10:12 AM EDT) Sodium 140 136 - 145 mmol/L 04/27/2020 10:54 AM EDT [facility] Potassium 3.7 3.5 - 5.0 mmol/L 04/27/2020 10:54 AM EDT [facility] Chloride 101 98 - 107 mmol/L 04/27/2020 10:54 AM EDT [facility] Total CO2 28 22 - 29 mmol/L 04/27/2020 10:54 AM EDT [facility] Anion Gap 11 7 - 16 mmol/L 04/27/2020 10:54 AM EDT [facility] Calcium 10.0 8.8 - 10.4 mg/dL 04/27/2020 10:54 AM EDT [facility] Glucose Lvl 142(H) 82 - 100 mg/dL 04/27/2020 10:54 AM EDT [facility] BUN 7(L) 8 - 23 mg/dL 04/27/2020 10:54 AM EDT [facility] Creatinine 0.57 0.51 - 1.30 mg/dL 04/27/2020 10:54 AM EDT [facility] GFR Afr Am 113 >=60 mL/min/1.7 3 m2 04/27/2020 10:54 AM EDT [facility] GFR Non Afr Am 98 >=60 mL/min/1.7 3 m2 04/27/2020 10:54 AM EDT [facility] Comment: This estimated GFR was [...] al Result [facility] [address] [facility] [place] [phone] [facility] [address] [place] [address] * (ABNORMAL) CBC (04/27/2020 10:12 AM EDT) [...] 04/27/2020 10:35 AM EDT [facility] Platelet 370(H) 155 - 369 x10(3)/mcL 04/27/2020 10:35 AM EDT [facility] MPV 9.3 8.8 - 12.5 fL 04/27/2020 10:35 AM EDT [facility] Blood VENOUS BLOOD / Unknown Butterfly / Unknown 04/27/2020 10:12 AM EDT 04/27/2020 10:25 AM EDT Kenyon Burkett APRN HEMATOLOGY ORDERABLES Final Result [facility] [employer] [facility], [facility] [address] [facility], [address] [place] [id number] * (ABNORMAL) GLUCOSE METER POC (04/27/2020 7:55 AM EDT) Glucose Meter POC 123(H) 70 - 100 mg/dL 04/27/2020 7:55 AM EDT [facility] Sample Type Capillary 04/27/2020 7:55 AM EDT [facility] Patient Status Non-Critical Patient 04/27/2020 7:55 AM EDT [facility] Blood BLOOD SPECIMEN / Unknown 04/27/2020 7:55 AM EDT 04/27/2020 7:55 AM EDT Heriberto Shirley DO POINT OF CARE TEST ORDER DICK Final Result Performing Organization Address City/[facility]/ZIP Co de Phone Number [facility] [address] [place] [address] * (ABNORMAL) GLUCOSE METER POC (2020 10:06 PM EDT) Glucose Meter POC 108(H) 70 - 100 mg/dL 2020 10:07 PM EDT [facility] Sample Type Capillary 2020 10:07 PM EDT [facility] Patient Status Non-Critical Patient 2020 10:07 PM EDT [facility] Blood BLOOD SPECIMEN / Unknown 2020 10:06 PM EDT 2020 10:07 PM EDT Heriberto Shirley DO POINT OF CARE TEST ORDER DICK Final Result [facility] [address] [place] [address] * (ABNORMAL) GLUCOSE METER POC (2020 6:05 PM EDT) Glucose Meter POC 103(H) 70 - 100 mg/dL 2020 6:06 PM EDT [facility] Sample Type Capillary 2020 6:06 PM EDT [facility] Patient Status Non-Critical Patient 2020 6:06 PM EDT [facility] Blood BLOOD SPECIMEN / Unknown 2020 6:05 PM EDT 2020 6:06 PM EDT Heriberto Shirley DO POINT OF CARE TEST ORDER DICK Final Result Performing Organization Address [facility]/ZIP Co de Phone Number [facility] [address] [place] [address] * (ABNORMAL) GLUCOSE METER POC (2020 11:32 AM EDT) Glucose Meter POC 105(H) 70 - 100 mg/dL 2020 11:33 AM EDT [facility] Sample Type Capillary 2020 11:33 AM EDT [facility] Patient Status Non-Critical Patient 2020 11:33 AM EDT [facility] Blood BLOOD SPECIMEN / Unknown 2020 11:32 AM EDT 2020 11:33 AM EDT Heriberto Shirley DO POINT OF CARE TEST ORDER DICK Final Result Performing Organization Address City/[facility]/ZIP Co de Phone Number [facility] [address] [place] [address] * (ABNORMAL) CBC (2020 6:29 AM EDT) WBC 11.0(H) 3.7 - 10.3 x10(3)/mcL 2020 6:51 AM EDT [facility] RBC 3.37(L) 3.90 - 5.20 x10(6)/mcL 2020 6:51 AM EDT [facility] Hgb 9.0(L) 11.2 - 15.7 g/dL 2020 6:51 AM EDT [facility] Hct 30.0(L) 34.0 - 45.0 % 2020 6:51 AM EDT [facility] MCV 89.0 80.0 - 100.0 fL 2020 6:51 AM EDT [facility] MCH 26.7 26.0 - 34.0 pg 2020 6:51 AM EDT [facility] MCHC 30.0(L) 30.7 - 35.5 g/dL 2020 6:51 AM EDT [facility] RDW 15.0(H) <=14.9 % 2020 6:51 AM EDT [facility] Platelet 320 155 - 369 x10(3)/mcL 2020 6:51 AM EDT [facility] MPV 9.3 8.8 - 12.5 fL 2020 6:[address] [facility] Blood VENOUS BLOOD / Unknown Venipuncture / Unknown 2020 6:29 AM EDT 2020 6:36 AM EDT Kenyon Burkett MANAGER CLINICAL APPLICATIONS HEMATOLOGY ORDERABLES Final Result [facility], [facility] [address] [facility] , [place] [address] * (ABNORMAL) GLUCOSE METER POC (2020 6:02 AM EDT) Glucose Meter POC 121(H) 70 - 100 mg/dL 2020 6:03 AM EDT [facility] Sample Type Capillary 2020 6:03 AM EDT [facility] Patient Status Non-Critical Patient 2020 6:03 AM EDT [facility] Blood BLOOD SPECIMEN / Unknown 2020 6:02 AM EDT 2020 6:03 AM EDT Heriberto Shirley DO POINT OF CARE TEST ORDER DICK Final Result Performing Organization Address [facility]/ZIP [place] [address] * (ABNORMAL) GLUCOSE METER POC (2020 12:01 AM EDT) Glucose Meter POC 132(H) 70 - 100 mg/dL 2020 12:00 AM EDT [facility] Sample Type Capillary 2020 12:00 AM EDT [facility] Patient Status Non-Critical Patient 2020 12:00 AM EDT [facility] Blood BLOOD SPECIMEN / Unknown 2020 12:01 AM EDT 2020 12:00 AM EDT Heriberto Shirley DO POINT OF CARE TEST ORDER DICK Final Result Performing Organization Address [facility]/[place] [address] * (ABNORMAL) GLUCOSE METER POC (04/25/2020 3:45 PM EDT) Glucose Meter POC 115(H) 70 - 100 mg/dL 04/25/2020 3:46 PM EDT [facility] Sample Type Capillary 04/25/2020 3:46 PM EDT [facility] Patient Status Non-Critical Patient 04/25/2020 3:46 PM EDT [facility] Blood BLOOD SPECIMEN / Unknown 04/25/2020 3:45 PM EDT 04/25/2020 3:46 PM EDT Heriberto Shirley DO POINT OF CARE TEST ORDER DICK Final Result [facility] 1 [facility] [place] [address] * (ABNORMAL) CBC (04/25/2020 2:56 PM EDT) WBC 10.7(H) 3.7 - 10.3 x10(3)/mcL 04/25/2020 3:08 PM EDT [facility] RBC 3.53(L) 3.90 - 5.20 x10(6)/mcL 04/25/2020 3:08 PM EDT [facility] Hgb 9.3(L) 11.2 - 15.7 g/dL 04/25/2020 3:08 PM EDT [facility] Hct 31.5(L) 34.0 - 45.0 % 04/25/2020 3:08 PM EDT [facility] MCV 89.2 80.0 - 100.0 fL 04/25/2020 3:08 PM EDT [facility] MCH 26.3 26.0 - 34.0 pg 04/25/2020 3:08 PM EDT [facility] MCHC 29.5(L) 30.7 - 35.5 g/dL 04/25/2020 3:08 PM EDT [facility] RDW 15.1(H) <=14.9 % 04/25/2020 3:08 PM EDT [facility] Platelet 309 155 - 369 x10(3)/mcL 04/25/2020 3:08 PM EDT [facility] MPV 9.3 8.8 - 12.5 fL 04/25/2020 3:08 PM EDT [facility] Blood VENOUS BLOOD / Unknown Butterfly / Unknown 04/25/2020 2:56 PM EDT 04/25/2020 3:02 PM EDT Kenyon Burkett APRN HEMATOLOGY ORDERABLES Final Result [facility] 1 [facility] , [place] [address] * (ABNORMAL) GLUCOSE METER POC (04/25/2020 12:09 PM EDT) Glucose Meter POC 119(H) 70 - 100 mg/dL 04/25/2020 12:10 PM EDT [facility] Sample Type Capillary 04/25/2020 12:10 PM EDT [facility] Patient Status Non-Critical Patient 04/25/2020 12:10 PM EDT [facility] Blood BLOOD SPECIMEN / Unknown 04/25/2020 12:09 PM EDT 04/25/2020 12:10 PM EDT Heriberto Shirley POINT OF CARE TEST ORDER DICK Final Result Performing Organization Address [facility] [place] [address] * (ABNORMAL) GLUCOSE METER POC (04/25/2020 5:13 AM EDT) Glucose Meter POC 106(H) 70 - 100 mg/dL 04/25/2020 5:14 AM EDT [facility] Sample Type Capillary 04/25/2020 5:14 AM EDT [facility] Patient Status Non-Critical Patient 04/25/2020 5:14 AM EDT [facility] Blood BLOOD SPECIMEN / Unknown 04/25/2020 5:13 AM EDT 04/25/2020 5:14 AM EDT Heriberto Shirley DO POINT OF CARE TEST ORDER DICK Final Result Performing Organization Address City/[facility]/ZIP Co de Phone Number [address] [address] * (ABNORMAL) GLUCOSE METER POC (04/24/2020 11:16 PM EDT) Glucose Meter POC 101(H) 70 - 100 mg/dL 04/24/2020 11:16 PM EDT [facility] Sample Type Capillary 04/24/2020 11:16 PM EDT [facility] Patient Status Non-Critical Patient 04/24/2020 11:16 PM EDT [facility] Blood BLOOD SPECIMEN / Unknown 04/24/2020 11:16 PM EDT 04/24/2020 11:16 PM EDT Heriberto Shirley DO POINT OF CARE TEST ORDER DICK Final Result [facility] [address] [place] [address] * (ABNORMAL) GLUCOSE METER POC (04/24/2020 6:03 PM EDT) Glucose Meter POC 106(H) 70 - 100 mg/dL 04/24/2020 6:04 PM EDT [facility] Sample Type Capillary 04/24/2020 6:04 PM EDT [facility] Patient Status Non-Critical Patient 04/24/2020 6:04 PM EDT [facility] Blood BLOOD SPECIMEN / Unknown 04/24/2020 6:03 PM EDT 04/24/2020 6:04 PM EDT Heriberto Shirley DO POINT OF CARE TEST ORDER DICK Final Result Performing Organization Address [facility]/ZIP Co de Phone Number [facility] [address] [place] [address] * GLUCOSE METER POC (04/24/2020 11:04 AM EDT) Glucose Meter POC 94 70 - 100 mg/dL 04/24/2020 11:05 AM EDT [facility] Sample Type Capillary 04/24/2020 11:05 AM EDT [facility] Patient Status Non-Critical Patient 04/24/2020 11:05 AM EDT [facility] Blood BLOOD SPECIMEN / Unknown 04/24/2020 11:04 AM EDT 04/24/2020 11:05 AM EDT Heriberto Shirley DO POINT OF CARE TEST ORDER DICK Final Result [facility] [address] [place] [address] * (ABNORMAL) GLUCOSE METER POC (04/24/2020 5:12 AM EDT) Glucose Meter POC 104(H) 70 - 100 mg/dL 04/24/2020 5:13 AM EDT [facility] Sample Type Capillary 04/24/2020 5:13 AM EDT [facility] Patient Status Non-Critical Patient 04/24/2020 5:13 AM EDT [facility] Blood BLOOD SPECIMEN / Unknown 04/24/2020 5:12 AM EDT 04/24/2020 5:13 AM EDT Heriberto Shirley DO POINT OF CARE TEST ORDER DICK Final Result Performing Organization Address City/[facility]/ZIP [place] [address] * GLUCOSE METER POC (04/23/2020 11:04 PM EDT) Glucose Meter POC 89 70 - 100 mg/dL 04/23/2020 11:05 PM EDT [facility] Sample Type Capillary 04/23/2020 11:05 PM EDT [facility] Patient Status Non-Critical Patient 04/23/2020 11:05 PM EDT [facility] Blood BLOOD SPECIMEN / Unknown 04/23/2020 11:04 PM EDT 04/23/2020 11:05 PM EDT Heriberto Shirley DO POINT OF CARE TEST ORDER DICK Final Result [address] [address] * GLUCOSE METER POC (04/23/2020 6:12 PM EDT) Glucose Meter POC 76 70 - 100 mg/dL 04/23/2020 6:13 PM EDT [facility] Sample Type Capillary 04/23/2020 6:13 PM EDT [facility] Patient Status Non-Critical Patient 04/23/2020 6:13 PM EDT [facility] Blood BLOOD SPECIMEN / Unknown 04/23/2020 6:12 PM EDT 04/23/2020 6:13 PM EDT Heriberto Shirley DO POINT OF CARE TEST ORDER DICK Final Result [facility] [address] [place], [place] [id number] * (ABNORMAL) BASIC METABOLIC PANEL (04/23/2020 4:17 PM EDT) Sodium 138 136 - 145 mmol/L 04/23/2020 5:07 PM EDT [facility] Potassium 3.8 3.5 - 5.0 mmol/L 04/23/2020 5:07 PM EDT [facility] Chloride 97(L) 98 - 107 mmol/L 04/23/2020 5:07 PM EDT [facility], [facility] Total CO2 27 22 - 29 mmol/L 04/23/2020 5:07 PM EDT [facility] Anion Gap 14 7 - 16 mmol/L 04/23/2020 5:07 PM EDT [facility] Calcium 9.1 8.8 - 10.4 mg/dL 04/23/2020 5:07 PM EDT [facility] Glucose Lvl 82 82 - 100 mg/dL 04/23/2020 5:07 PM EDT [facility] BUN 10 8 - 23 mg/dL 04/23/2020 5:07 PM EDT [facility] Creatinine 0.55 0.51 - 1.30 mg/dL 04/23/2020 5:07 PM EDT [facility] GFR Afr Am 115 >=60 mL/min/1.7 3 m2 04/23/2020 5:07 PM EDT [facility] GFR Non Afr Am 100 >=60 mL/min/1.7 3 m2 04/23/2020 5:07 PM EDT [facility] Comment: This estimated GFR was [...] 04/23/2020 4:35 PM EDT us Tana Badillo MANAGER CLINICAL APPLICATIONS CHEMISTRY ORDERABLES Final R esult [facility], [facility] 1 [facility], [address] [place] [id number] [facility] [address] [place] [address] * (ABNORMAL) CBC (04/23/2020 4:17 PM EDT) [...] 4:17 PM EDT 04/23/2020 4:35 PM EDT Tanaira Badillo APRN HEMATOLOGY ORDERABLES Final Result [facility] 1 [facility], [place] [address] * GLUCOSE METER POC (04/23/2020 12:57 PM EDT) Glucose Meter POC 82 70 - 100 mg/dL 04/23/2020 12:58 PM EDT [facility] Sample Type Capillary 04/23/2020 12:58 PM EDT [facility] Patient Status Non-Critical Patient 04/23/2020 12:58 PM EDT [facility] Blood BLOOD SPECIMEN / Unknown 04/23/2020 12:57 PM EDT 04/23/2020 12:58 PM EDT Heriberto Shirley DO POINT OF CARE TEST ORDER DICK Final Result Performing Organization Address [facility]/ZIP Co de Phone Number [facility] [address] [place] [address] * GLUCOSE METER POC (04/23/2020 5:38 AM EDT) Glucose Meter POC 90 70 - 100 mg/dL 04/23/2020 5:39 AM EDT [facility] Sample Type Capillary 04/23/2020 5:39 AM EDT [facility] Patient Status Non-Critical Patient 04/23/2020 5:39 AM EDT [facility] Blood BLOOD SPECIMEN / Unknown 04/23/2020 5:38 AM EDT 04/23/2020 5:38 AM EDT Heriberto Shirley DO POINT OF CARE TEST ORDER DICK Final Result [facility] 1 [place] [id number] * GLUCOSE METER POC (04/22/2020 11:11 PM EDT) Glucose Meter POC 93 70 - 100 mg/dL 04/22/2020 11:12 PM EDT [facility] Sample Type Capillary 04/22/2020 11:12 PM EDT [facility] Patient Status Non-Critical Patient 04/22/2020 11:12 PM EDT [facility] Blood BLOOD SPECIMEN / Unknown 04/22/2020 11:11 PM EDT 04/22/2020 11:12 PM EDT Heriberto Shirley POINT OF CARE TEST ORDER DICK Final Result Performing Organization Address City/[facility]/ZIP Co de Phone Number [place] [phone] * GLUCOSE METER POC (04/22/2020 5:36 PM EDT) Glucose Meter POC 94 70 - 100 mg/dL 04/22/2020 5:37 PM EDT [facility] Sample Type Capillary 04/22/2020 5:37 PM EDT [facility] Patient Status Non-Critical Patient 04/22/2020 5:37 PM EDT [facility] Blood BLOOD SPECIMEN / Unknown 04/22/2020 5:36 PM EDT 04/22/2020 5:37 PM EDT Heriberto Shirley DO POINT OF CARE TEST ORDER DICK Final Result [address] [address] * GLUCOSE METER POC (04/22/2020 12:38 PM EDT) Glucose Meter POC 95 70 - 100 mg/dL 04/22/2020 12:39 PM EDT [facility] Sample Type Capillary 04/22/2020 12:39 PM EDT [facility] Patient Status Non-Critical Patient 04/22/2020 12:39 PM EDT [facility] Blood BLOOD SPECIMEN / Unknown 04/22/2020 12:38 PM EDT 04/22/2020 12:39 PM EDT Heriberto Shirley DO POINT OF CARE TEST ORDER DICK Final Result [facility] [address] [place] [address] * (ABNORMAL) GLUCOSE METER POC (04/22/2020 7:52 AM EDT) Glucose Meter POC 105(H) 70 - 100 mg/dL 04/22/2020 7:53 AM EDT [facility] Sample Type Capillary 04/22/2020 7:53 AM EDT [facility] Patient Status Non-Critical Patient 04/22/2020 7:53 AM EDT [facility] Blood BLOOD SPECIMEN / Unknown 04/22/2020 7:52 AM EDT 04/22/2020 7:53 AM EDT Heriberto Shirley DO POINT OF CARE TEST ORDER DICK Final Result Performing Organization Address City/[facility]/ZIP Co de Phone Number [facility] [address] [place] [phone] * (ABNORMAL) GLUCOSE METER POC (04/21/2020 9:06 PM EDT) Glucose Meter POC 114(H) 70 - 100 mg/dL 04/21/2020 9:07 PM EDT [facility] Sample Type Capillary 04/21/2020 9:07 PM EDT [facility] Patient Status Non-Critical Patient 04/21/2020 9:07 PM EDT [facility] Blood BLOOD SPECIMEN / Unknown 04/21/2020 9:06 PM EDT 04/21/2020 9:07 PM EDT Heriberto Shirley DO POINT OF CARE TEST ORDER DICK Final Result Performing Organization Address City/[facility]/ZIP Co de Phone Number [facility] [address] [place] [address] * (ABNORMAL) GLUCOSE METER POC (04/21/2020 5:00 PM EDT) Glucose Meter POC 129(H) 70 - 100 mg/dL 04/21/2020 5:01 PM EDT [facility] Sample Type Capillary 04/21/2020 5:01 PM EDT [facility] Patient Status Non-Critical Patient 04/21/2020 5:01 PM EDT [facility] Blood BLOOD SPECIMEN / Unknown 04/21/2020 5:00 PM EDT 04/21/2020 5:01 PM EDT Heriberto Shirley DO POINT OF CARE TEST ORDER DICK Final Result Performing Organization Address [facility] Co de Phone Number [place] [phone] * (ABNORMAL) GLUCOSE METER POC (04/21/2020 12:48 PM EDT) Glucose Meter POC 131(H) 70 - 100 mg/dL 04/21/2020 12:49 PM EDT [facility] Sample Type Capillary 04/21/2020 12:49 PM EDT [facility] Patient Status Non-Critical Patient 04/21/2020 12:49 PM EDT [facility] Blood BLOOD SPECIMEN / Unknown 04/21/2020 12:48 PM EDT 04/21/2020 12:49 PM EDT Heriberto Shirley DO POINT OF CARE TEST ORDER DICK Final Result Performing Organization Address City/[facility]/ZIP Co de Phone Number [address] [address] * (ABNORMAL) BASIC METABOLIC PANEL (04/21/2020 9:37 AM EDT) Sodium 139 136 - 145 mmol/L 04/21/2020 10:17 AM EDT [facility] Potassium 3.9 3.5 - 5.0 mmol/L 04/21/2020 10:17 AM EDT [facility] Chloride 96(L) 98 - 107 mmol/L 04/21/2020 10:17 AM EDT [facility] Total CO2 32(H) 22 - 29 mmol/L 04/21/2020 10:[address] [facility], [facility] Anion Gap 11 7 - 16 mmol/L 04/21/2020 10:[address] [facility], [facility] Calcium 10.0 8.8 - 10.4 mg/dL 04/21/2020 10:17 AM EDT [facility], [facility] Glucose Lvl 142(H) 82 - 100 mg/dL 04/21/2020 10:[address] [facility], [facility] BUN 9 8 - 23 mg/dL 04/21/2020 10:[address] [facility], [facility] Creatinine 0.69 0.51 - 1.30 mg/dL 04/21/2020 10:17 AM EDT [facility] GFR Afr Am 107 >=60 mL/min/1.7 3 m2 04/21/2020 10:17 AM EDT [facility] GFR Non Afr Am 93 >=60 mL/min/1.7 3 m2 04/21/2020 10:17 AM EDT [facility] Comment: This estimated GFR was [...] 04/21/2020 9:41 AM EDT us Tana Badillo MANAGER CLINICAL APPLICATIONS CHEMISTRY ORDERABLES Final R esult [facility] 1 [facility] , [place] [address] [facility] [address] [place] [id number] * (ABNORMAL) CBC (04/21/2020 9:37 AM EDT) WBC 13.1(H) 3.7 - 10.3 x10(3)/mcL 04/21/2020 9:58 AM EDT [facility] RBC 3.85(L) 3.90 - 5.20 x10(6)/mcL 04/21/2020 9:58 AM EDT [facility] Hgb 10.5(L) 11.2 - 15.7 g/dL 04/21/2020 9:58 AM EDT [facility] Hct 34.3 34.0 - 45.0 % 04/21/2020 9:58 AM EDT [facility] MCV 89.1 80.0 - 100.0 fL 04/21/2020 9:58 AM EDT [facility] MCH 27.3 26.0 - 34.0 pg 04/21/2020 9:58 AM EDT [facility] MCHC 30.6(L) 30.7 - 35.5 g/dL 04/21/2020 9:58 AM EDT [facility] RDW 15.5(H) <=14.9 % 04/21/2020 9:58 AM EDT [facility] Platelet 289 155 - 369 x10(3)/mcL 04/21/2020 9:58 AM EDT [facility] MPV 9.6 8.8 - 12.5 fL 04/21/2020 9:[address] [facility] Blood VENOUS BLOOD / Unknown Venipuncture / Unknown 04/21/2020 9:37 AM EDT 04/21/2020 9:41 AM EDT Tana Badillo APRN HEMATOLOGY ORDERABLES Final Result [facility] 1 [facility] , [address] [place] [phone] * (ABNORMAL) GLUCOSE METER POC (04/21/2020 7:58 AM EDT) [facility] Glucose Meter POC 140(H) 70 - 100 mg/dL 04/21/2020 7:59 AM EDT [facility] Sample Type Capillary 04/21/2020 7:59 AM EDT [facility] Patient Status Non-Critical Patient 04/21/2020 7:59 AM EDT [facility] Blood BLOOD SPECIMEN / Unknown 04/21/2020 7:58 AM EDT 04/21/2020 7:58 AM EDT Heriberto Shirley DO POINT OF CARE TEST ORDER DICK Final Result [facility] [address] [place] [id number] * XR CHEST PA OR AP (04/21/2020 [...] MICROBIOLOGY - GENERAL O RDERABLES [place] [address] * (ABNORMAL) URINALYSIS (04/21/2020 12:24 AM EDT) UA Color Yellow 04/21/2020 12:40 AM EDT [facility] [place] UA Appear Cloudy(A) Clear 04/21/2020 12:40 AM EDT [facility] UA Glucose Negative Negative mg/dL 04/21/2020 12:40 AM EDT [facility] UA Ketones Negative Negative mg/dL 04/21/2020 12:40 AM EDT [facility] [place] UA Blood Moderate(A) Negative 04/21/2020 12:40 AM EDT [facility] UA pH 5.0 5.0 - 8.0 pH 04/21/2020 12:40 AM EDT [facility] UA Protein 30(A) Negative mg/dL 04/21/2020 12:40 AM EDT [facility] UA Urobilinogen 2.0(A) <=1 mg/dL 0 12:40 [...] 12:40 AM EDT [facility] Comment:Reference range dano d for random specimens [...] 12:40 AM EDT [facility] Urine URINE SPECIMEN COLLECTION, CLEAN CATCH / Unknown 04/21/2020 12:24 AM EDT 04/21/2020 12:29 AM EDT Heriberto Shirley DO URINE ORDERABLES Final R esult [facility] [address] [facility] , [place] [id number] * (ABNORMAL) GLUCOSE METER POC (04/20/2020 9:13 PM EDT) [facility] Signature Glucose Meter POC 140(H) 70 - 100 mg/dL 04/20/2020 9:15 PM EDT [facility] Sample Type Capillary 04/20/2020 9:15 PM EDT [facility] Patient Status Non-Critical Patient 04/20/2020 9:15 PM EDT [facility] Blood BLOOD SPECIMEN / Unknown 04/20/2020 9:13 PM EDT 04/20/2020 9:15 PM EDT Heriberto Shirley DO POINT OF CARE TEST ORDER DICK Final Result [facility] [address] [place] [address] * (ABNORMAL) GLUCOSE METER POC (04/20/2020 5:17 PM EDT) Glucose Meter POC 145(H) 70 - 100 mg/dL 04/20/2020 5:18 PM EDT [facility] Sample Type Capillary 04/20/2020 5:18 PM EDT [facility] Patient Status Non-Critical Patient 04/20/2020 5:18 PM EDT [facility] Blood BLOOD SPECIMEN / Unknown 04/20/2020 5:17 PM EDT 04/20/2020 5:18 PM EDT Heriberto Shirley DO POINT OF CARE TEST ORDER DICK Final Result Performing Organization Address [facility]/ZIP Co de Phone Number [facility] [address] [place] [address] * (ABNORMAL) GLUCOSE METER POC (04/20/2020 12:48 PM EDT) Glucose Meter POC 142(H) 70 - 100 mg/dL 04/20/2020 12:48 PM EDT [facility] Sample Type Capillary 04/20/2020 12:48 PM EDT [facility] Patient Status Non-Critical Patient 04/20/2020 12:48 PM EDT [facility] Blood BLOOD SPECIMEN / Unknown 04/20/2020 12:48 PM EDT 04/20/2020 12:48 PM EDT Heriberto Shirley DO POINT OF CARE TEST ORDER DICK Final Result [facility] [address] [place] [address] * (ABNORMAL) GLUCOSE METER POC (04/20/2020 8:11 AM EDT) [facility] Signature Glucose Meter POC 123(H) 70 - 100 mg/dL 04/20/2020 8:12 AM EDT [facility] Sample Type Capillary 04/20/2020 8:12 AM EDT [facility] Patient Status Non-Critical Patient 04/20/2020 8:12 AM EDT [facility] Blood BLOOD SPECIMEN / Unknown 04/20/2020 8:11 AM EDT 04/20/2020 8:12 AM EDT Heriberto Shirley DO POINT OF CARE TEST ORDER DICK Final Result [facility] [address] [place] [address] * (ABNORMAL) CBC (04/20/2020 6:59 AM EDT) [facility] Signature WBC 15.4(H) 3.7 - 10.3 x10(3)/mcL 04/20/2020 [...] R esult [facility] 1 [facility] , [place] [address] * (ABNORMAL) BASIC METABOLIC PANEL (04/20/2020 6:57 AM EDT) Sodium 138 136 - 145 mmol/L 04/20/2020 7:43 AM EDT [facility] Potassium 4.1 3.5 - 5.0 mmol/L 04/20/2020 7:43 AM EDT [facility] Chloride 100 98 - 107 mmol/L 04/20/2020 7:43 AM EDT [facility] Total CO2 27 22 - 29 mmol/L 04/20/2020 7:43 AM EDT [facility] Anion Gap 11 7 - 16 mmol/L 04/20/2020 7:43 AM EDT [facility] Calcium 9.1 8.8 - 10.4 mg/dL 04/20/2020 7:43 AM EDT [facility] Glucose Lvl 139(H) 82 - 100 mg/dL 04/20/2020 7:43 AM EDT [facility] BUN 5(L) 8 - 23 mg/dL 04/20/2020 7:43 AM EDT [facility] Creatinine 0.67 0.51 - 1.30 mg/dL 04/20/2020 7:43 AM EDT [facility] GFR Afr Am 108 >=60 mL/min/1.7 3 m2 04/20/2020 7:43 AM EDT [facility] GFR Non Afr Am 94 >=60 mL/min/1.7 3 m2 04/20/2020 7:43 AM EDT [facility] Comment: This estimated GFR was [...] ORDERABLES Final Re sult Performing Organization Address City/[facility]/ZIP Co de Phone Number [facility] [employer], [address] [place] [address] [facility] [address] [place], [place] [phone] * (ABNORMAL) GLUCOSE METER POC (04/19/2020 10:19 PM EDT) Glucose Meter POC 159(H) 70 - 100 mg/dL 04/19/2020 10:19 PM EDT [facility] Sample Type Capillary 04/19/2020 10:19 PM EDT [facility] Patient Status Non-Critical Patient 04/19/2020 10:19 PM EDT [facility] Blood BLOOD SPECIMEN / Unknown 04/19/2020 10:19 PM EDT 04/19/2020 10:19 PM EDT Heriberto Shirley DO POINT OF CARE TEST ORDER DICK Final Result Performing Organization Address [facility]/ZIP Co de Phone Number [address] [phone] * (ABNORMAL) GLUCOSE METER POC (04/19/2020 5:26 PM EDT) Glucose Meter POC 172(H) 70 - 100 mg/dL 04/19/2020 5:27 PM EDT [facility] Sample Type Capillary 04/19/2020 5:27 PM EDT [facility] Patient Status Non-Critical Patient 04/19/2020 5:27 PM EDT [facility] Blood BLOOD SPECIMEN / Unknown 04/19/2020 5:26 PM EDT 04/19/2020 5:27 PM EDT Heriberto Shirley POINT OF CARE TEST ORDER DICK Final Result Performing Organization Address [facility]/ZIP Co de Phone Number [address] [phone] * (ABNORMAL) GLUCOSE METER POC (04/19/2020 12:15 PM EDT) Glucose Meter POC 137(H) 70 - 100 mg/dL 04/19/2020 12:16 PM EDT [facility] Sample Type Capillary 04/19/2020 12:16 PM EDT [facility] Patient Status Non-Critical Patient 04/19/2020 12:16 PM EDT [facility] Blood BLOOD SPECIMEN / Unknown 04/19/2020 12:15 PM EDT 04/19/2020 12:16 PM EDT Heriberto Shirley DO POINT OF CARE TEST ORDER DICK Final Result Performing Organization Address [facility] Co de Phone Number [address] [phone] * (ABNORMAL) CBC (04/19/2020 6:15 AM EDT) WBC 16.2(H) 3.7 - 10.3 x10(3)/mcL 04/19/2020 [...] Final R esult [facility], [facility] 1 [facility] , [address] [place] [phone] * (ABNORMAL) BASIC METABOLIC PANEL (04/19/2020 6:15 [...] - 100 mg/dL 04/19/2020 7:08 AM EDT [facility] BUN 7(L) 8 - 23 mg/dL 04/19/2020 7:08 AM EDT [facility] Creatinine 0.60 0.51 - 1.30 mg/dL 04/19/2020 7:08 AM EDT [facility] GFR Afr Am 112 >=60 mL/min/1.7 3 m2 04/19/2020 7:08 AM EDT [facility] GFR Non Afr Am 97 >=60 mL/min/1.7 3 m2 04/19/2020 7:08 AM EDT [facility] Comment: This estimated GFR was [...] Butts MD CHEMISTRY ORDERABLES Final Re sult [facility] 1 [facility], [place] [address] [facility] [address] [place], [place] [phone] * (ABNORMAL) GLUCOSE METER POC (04/19/2020 6:08 AM EDT) [facility] Glucose Meter POC 103(H) 70 - 100 mg/dL 04/19/2020 6:09 AM EDT [facility] Sample Type Capillary 04/19/2020 6:09 AM EDT [facility] Patient Status Non-Critical Patient 04/19/2020 6:09 AM EDT [facility] Blood BLOOD SPECIMEN / Unknown 04/19/2020 6:08 AM EDT 04/19/2020 6:09 AM EDT Heriberto Shirley DO POINT OF CARE TEST ORDER DICK Final Result [facility] [address] [place] [address] * (ABNORMAL) GLUCOSE METER POC (04/18/2020 11:41 PM EDT) Glucose Meter POC 154(H) 70 - 100 mg/dL 04/18/2020 11:42 PM EDT [facility] Sample Type Capillary 04/18/2020 11:42 PM EDT [facility] Patient Status Non-Critical Patient 04/18/2020 11:42 PM EDT [facility] Blood BLOOD SPECIMEN / Unknown 04/18/2020 11:41 PM EDT 04/18/2020 11:42 PM EDT Heriberto Shirley DO POINT OF CARE TEST ORDER DICK Final Result Performing Organization Address [facility]/ZIP Co de Phone Number [facility] [address] [place] [address] * (ABNORMAL) GLUCOSE METER POC (04/18/2020 9:46 PM EDT) Glucose Meter POC 136(H) 70 - 100 mg/dL 04/18/2020 9:47 PM EDT [facility] Sample Type Capillary 04/18/2020 9:47 PM EDT [facility] Patient Status Non-Critical Patient 04/18/2020 9:47 PM EDT [facility] Blood BLOOD SPECIMEN / Unknown 04/18/2020 9:46 PM EDT 04/18/2020 9:47 PM EDT Heriberto Shirley DO POINT OF CARE TEST ORDER DICK Final Result Performing Organization Address City/[facility]/ZIP Co de Phone Number [facility] [address] [place] [address] * GLUCOSE METER POC (04/18/2020 4:47 PM EDT) Glucose Meter POC 76 70 - 100 mg/dL 04/18/2020 4:48 PM EDT [facility] Sample Type Capillary 04/18/2020 4:48 PM EDT [facility] Patient Status Non-Critical Patient 04/18/2020 4:48 PM EDT [facility] Blood BLOOD SPECIMEN / Unknown 04/18/2020 4:47 PM EDT 04/18/2020 4:48 PM EDT Heriberto Shirley POINT OF CARE TEST ORDER DICK Final Result Performing Organization Address City/[facility]/ZIP [place] [address] * GLUCOSE METER POC (04/18/2020 12:08 PM EDT) Glucose Meter POC 84 70 - 100 mg/dL 04/18/2020 12:08 PM EDT [facility] Sample Type Capillary 04/18/2020 12:08 PM EDT [facility] Patient Status Non-Critical Patient 04/18/2020 12:08 PM EDT [facility] Blood BLOOD SPECIMEN / Unknown 04/18/2020 12:08 PM EDT 04/18/2020 12:08 PM EDT Heriberto Shirley DO POINT OF CARE TEST ORDER DICK Final Result Performing Organization Address City/[facility]/ZIP Co de Phone Number [address] [phone] * GLUCOSE METER POC (04/18/2020 10:07 AM EDT) Glucose Meter POC 78 70 - 100 mg/dL 04/18/2020 10:07 AM EDT [facility] Sample Type Capillary 04/18/2020 10:07 AM EDT [facility] Patient Status Non-Critical Patient 04/18/2020 10:07 AM EDT [facility] Blood BLOOD SPECIMEN / Unknown 04/18/2020 10:07 AM EDT 04/18/2020 10:07 AM EDT us Heriberto Shirley DO POINT OF CARE TEST ORDER DICK Final Result Performing Organization Address City/[facility]/ZIP Co de Phone Number [facility] [address] [place] [phone] * BB HISTORY CHECK (04/18/2020 8:20 AM EDT) BB HISTORY CHECK (1) Previous History OK 04/18/2020 8:42 AM EDT [facility] Blood VENOUS BLOOD / Unknown Venipuncture / Unknown 04/18/2020 8:20 AM EDT 04/18/2020 8:31 AM EDT us Renetta Miles MANAGER CLINICAL APPLICATIONS BLOOD BANK ORDERABLES Final Result Performing Organization Address [facility] Co de Phone Number [facility] [address] * ANTIBODY SCREEN IGG (04/18/2020 8:20 AM EDT) ABSC IgG Int Negative 04/18/2020 9:29 AM EDT [facility] Blood VENOUS BLOOD / Unknown Venipuncture / Unknown 04/18/2020 8:20 AM EDT 04/18/2020 8:31 AM EDT us Renetta Miles MANAGER CLINICAL APPLICATIONS BLOOD BANK ORDERABLES Final Result Performing Organization Address [facility] Co de Phone Number [facility] [address] [place] [phone] * ABORH (04/18/2020 8:20 AM EDT) ABORH Int O POS 04/18/2020 9:0 9 AM EDT [facility] Blood VENOUS BLOOD / Unknown Venipuncture / Unknown 04/18/2020 8:20 AM EDT 04/18/2020 8:31 AM EDT us Renetta Miles MANAGER CLINICAL APPLICATIONS BLOOD BANK ORDERABLES Final Result [facility] [address] [place] [address] * EK EKG 12 LEAD (04/18/2020 8:03 AM EDT) Anatomical Region Laterality Modality Electrocardiogra phy 04/18/2020 8:11 AM EDT Impressions 04/18/2020 8:55 AM EDT ?[facility] ? Test Date: ?2020-04-18 Pat Name: ? ALYSSA CAMPOS ?Department: ?? DEPID ? Room: ? 2318 Gender: ? Female ? Gold Stamper: ?? Ap : ?1955 ? Requested By: RENETTA MILES Order Number: [id number] ?[place] MD: ?? Alvaro Membreno MD ? Measurements Intervals ?[place] ? Rate: ? 63 ? P: ?53 OK: ? 211 ?QRS: ?-34 QRSD: ? 94 ? T: ?21 QT: ? 372 ? QTc: ?382 ? Interpretive Statements SINUS RHYTHM WITH FIRST DEGREE AV BLOCK LEFT AXIS DEVIATION minimal change from 03/13/17 record Electronically Signed On 04-18-2020 8:55:51 EDT by Alvaro Membreno MD Narrative Procedure Note Alvaro Membreno MD - 04/18/[address] [facility] Test Date: 2020-04-18 Pat Name: ALYSSA CAMPOS Department: [facility] Room: 2318 Gender: Female Gold Stamper: Ap : 1955 Requested By: RENETTA MILES Order Number: [id number] [place] MD: Alvaro Membreno MD Measurements Intervals [place] Rate: 63 P: 53 OK: 211 QRS: -34 QRSD: 94 T: 21 QT: 372 QTc: 382 Interpretive Statements SINUS RHYTHM WITH FIRST DEGREE AV BLOCK LEFT AXIS DEVIATION minimal change from 03/13/17 record Electronically Signed On 04-18-2020 8:55:51 EDT by Alvaro Membreno MD us Renetta Miles MANAGER CLINICAL APPLICATIONS IMG ECG ORDERABLES Final Res ult * (ABNORMAL) CBC (04/18/2020 7:01 AM EDT) WBC 7.7 3.7 - 10.3 x10(3)/mcL 04/18/2020 7:19 AM EDT [facility] RBC 3.92 3.90 - 5.20 x10(6)/mcL 04/18/2020 7:19 AM EDT [facility] Hgb 10.5(L) 11.2 - 15.7 g/dL 04/18/2020 [...] R esult [facility] 1 [facility] , [address] [place] [phone] * BASIC METABOLIC PANEL (04/18/2020 7:01 AM EDT) Sodium 139 136 - 145 mmol/L 04/18/2020 7:31 AM EDT [facility] Potassium 4.1 3.5 - 5.0 mmol/L 04/18/2020 7:31 AM EDT [facility] Chloride 103 98 - 107 mmol/L 04/18/2020 7:31 AM EDT [facility], [facility] Total CO2 25 22 - 29 mmol/L 04/18/2020 7:[address] [facility] Anion Gap 11 7 - 16 mmol/L 04/18/2020 7:[address] [facility] Calcium 9.2 8.8 - 10.4 mg/dL 04/18/2020 7:[address] [facility] Glucose Lvl 100 82 - 100 mg/dL 04/18/2020 7:31 AM EDT [facility] BUN 14 8 - 23 mg/dL 04/18/2020 7:[address] [facility] Creatinine 0.99 0.51 - 1.30 mg/dL 04/18/2020 7:[address] [facility], [facility] GFR Afr Am 70 >=60 mL/min/1.7 3 m2 04/18/2020 7:31 AM EDT [facility] GFR Non Afr Am 61 >=60 mL/min/1.7 3 m2 04/18/2020 7:31 AM EDT [facility] Comment: This estimated GFR was [...] CHEMISTRY ORDERABLES Final Re sult [facility], [facility] 1 [facility] , [address] [place] [phone] [facility] 1 [place] [address] * GLUCOSE METER POC (04/18/2020 5:30 AM EDT) Glucose Meter POC 87 70 - 100 mg/dL 04/18/2020 5:30 AM EDT [facility] Sample Type Capillary 04/18/2020 5:30 AM EDT [facility] Patient Status Non-Critical Patient 04/18/2020 5:30 AM EDT [facility] Blood BLOOD SPECIMEN / Unknown 04/18/2020 5:30 AM EDT 04/18/2020 5:30 AM EDT Heriberto Shirley DO POINT OF CARE TEST ORDER DICK Final Result [address] [phone] * (ABNORMAL) GLUCOSE METER POC (04/17/2020 11:43 PM EDT) Glucose Meter POC 105(H) 70 - 100 mg/dL 04/17/2020 11:43 PM EDT [facility] Sample Type Capillary 04/17/2020 11:43 PM EDT [facility] Patient Status Non-Critical Patient 04/17/2020 11:43 PM EDT [facility] Blood BLOOD SPECIMEN / Unknown 04/17/2020 11:43 PM EDT 04/17/2020 11:43 PM EDT Heriberto Shirley DO POINT OF CARE TEST ORDER DICK Final Result [address] [address] * GLUCOSE METER POC (04/17/2020 6:29 PM EDT) Glucose Meter POC 85 70 - 100 mg/dL 04/17/2020 6:31 PM EDT [facility] Sample Type Capillary 04/17/2020 6:31 PM EDT [facility] Patient Status Non-Critical Patient 04/17/2020 6:31 PM EDT [facility] Blood BLOOD SPECIMEN / Unknown 04/17/2020 6:29 PM EDT 04/17/2020 6:31 PM EDT Heriberto Shirley DO POINT OF CARE TEST ORDER DICK Final Result Performing Organization Address [facility] Co de Phone Number [facility] [address] [place] [address] * GLUCOSE METER POC (04/17/2020 1:59 PM EDT) [facility] Glucose Meter POC 91 70 - 100 mg/dL 04/17/2020 2:00 PM EDT [facility] Sample Type Capillary 04/17/2020 2:00 PM EDT [facility] Patient Status Non-Critical Patient 04/17/2020 2:00 PM EDT [facility] Blood BLOOD SPECIMEN / Unknown 04/17/2020 1:59 PM EDT 04/17/2020 2:00 PM EDT Heriberto Shirley DO POINT OF CARE TEST ORDER DICK Final Result Performing Organization Address [facility] de Phone Number [facility] 1 [place] [address] * (ABNORMAL) BASIC METABOLIC PANEL (04/17/2020 9:48 AM EDT) [facility] Sodium 139 136 - 145 mmol/L 04/17/2020 [...] - 23 mg/dL 04/17/2020 10:[address] [facility], [facility] Creatinine 0.73 0.51 - 1.30 mg/dL 04/17/2020 10:[address] [facility], [facility] GFR Afr Am 101 >=60 mL/min/1.7 3 m2 04/17/2020 10:34 AM EDT [facility] GFR Non Afr Am 88 >=60 mL/min/1.7 3 m2 04/17/2020 10:34 AM EDT [facility] Comment: This estimated GFR was [...] 04/17/2020 10:00 AM EDT us Kamila Coughlin MANAGER CLINICAL APPLICATIONS CHEMISTRY ORDERABLES Final Res ult [facility], [address], [address] [place] [phone] [facility] [address] [place] [address] * (ABNORMAL) CBC (04/17/2020 9:48 AM EDT) [facility] Signature WBC 9.5 3.7 - 10.3 x10(3)/mcL 04/17/2020 10:16 AM EDT [facility], [facility] RBC 4.55 3.90 - 5.20 x10(6)/mcL 04/17/2020 10:[address] [facility] [employer], [facility] Hgb 12.2 11.2 - 15.7 g/dL 04/17/2020 10:[address] [facility] [employer], [facility] Hct 39.7 34.0 - 45.0 % 04/17/2020 10:16 AM EDT [facility] MCV 87.3 80.0 - 100.0 fL 04/17/2020 10:16 AM EDT [facility], [facility] MCH 26.8 26.0 - 34.0 pg 04/17/2020 10:16 AM EDT [facility], [facility] MCHC 30.7 30.7 - 35.5 g/dL 04/17/2020 10:[address] [facility], [facility] RDW 15.1(H) <=14.9 % 04/17/2020 10:16 AM EDT [facility] Platelet 265 155 - 369 x10(3)/mcL 04/17/2020 10:16 AM EDT [facility], [facility] MPV 9.5 8.8 - 12.5 fL 04/17/2020 10:[address] [facility] [employer], [employer] Blood VENOUS BLOOD / Unknown Venipuncture / Unknown 04/17/2020 9:48 AM EDT 04/17/2020 10:00 AM EDT Kamila Coughlin MANAGER CLINICAL APPLICATIONS HEMATOLOGY ORDERABLES Final Re sult [facility] 1 [facility] , [place] [address] documented in this encounter Visit Diagnoses Diagnosis Ventral hernia- Primary Ventral hernia, unspecified, without mention of obstruction or gangrene Preop testing Preoperative examination, unspecified Essential hypertension Unspecified essential hypertension Ventral hernia without obstruction or gangrene Ventral hernia, unspecified, without mention of obstruction or gangrene Obesity, Class III, BMI 40-49.9 (morbid obesity) (HCC) Morbid obesity Type 2 diabetes mellitus without complication (HCC) Ventral hernia with obstruction and without gangrene Ventral hernia, unspecified, with obstruction documented in this encounter Administered Medications Inactive Administered Medications - up to 1 most recent administrations Medication Order MAR Action Action Date Dose Rate Site acetaminophen (TYLENOL) suppository 650 mg 650 mg, Rectal, EVERY 4 HOURS PRN, Starting on 04/16/20 at 2326, Until 04/29/20 at 0046, Fever, Headaches, Maximum adult dose of acetaminophen is 4000 mg from all sources in 24 hours. acetaminophen (TYLENOL) tablet 650 mg 650 mg, Oral, EVERY 4 HOURS PRN, Starting on 8/9/20 at 2326, Until 04/29/20 at 0046, Fever, Headaches, Maximum adult dose of acetaminophen is 4000 mg from all sources in 24 hours. Given 04/23/2020 12:58 PM EDT 650 mg atorvastatin (LIPITOR) tablet 20 mg 20 mg, Oral, NIGHTLY, First dose on Fri04/17/20 at 0045, Until Discontinued Given 04/27/2020 8:46 PM EDT 20 mg benzocaine-menthoL (CEPACOL SORE THROAT) 15-3.6 mg 1 Lozenge 1 Lozenge, Oral, EVERY 2 HOURS PRN, Starting on Fri04/19/20 at 1304, Until 04/29/20 at 0046, Sore Throat, Waste Sort Code = BKC Given 2020 10:21 PM EDT 1 Lozenge bupivacaine-EPINEPHrine 0.5 %-1:200,000 injection ONCE PRN, 1 dose, Starting on Fri04/18/20 at 1918, Until Fri04/18/20 at 1918, Intra-op Given 04/18/2020 7:18 PM EDT 30 mL Abdominal Tissue dextrose 50 % solution 25 mL 25 [...] 11:29 AM EDT 40 mg Abdominal Tissue glucagon (human recombinant) (GLUCAGEN) injection 1 mg [...] 11:40 AM EDT 1 Units Right Arm lidocaine (XYLOCAINE) 2 % viscous solution 10 mL 10 mL, Mouth/Throat, PRN, Starting on Fri04/21/20 at 0713, Until 04/29/20 at 0046, Pain loratadine (CLARITIN) tablet 10 mg 10 mg, [...] Application site: skin folds morphine injection 4 mg 4 mg, Intravenous, [...] Fri04/16/20 at 2326, Until 04/29/20 at 0046, Nausea, [...] phenol (CHLORASEPTIC) 1.4 % oral spray 1 [place] 1 [place], Oral, EVERY 2 HOURS PRN, Starting on Fri04/19/20 at 1304, Until 04/29/20 at 0046, Sore Throat Given 04/23/2020 9:48 AM EDT 1 [place] polyethylene glycol (GLYCOLAX, MIRALAX) packet 17 g 17 g, Oral, 2 TIMES DAILY, First dose on Fri04/24/20 at 1445, Until Discontinued, Mix in 8 oz of water Given 04/27/2020 8:46 PM EDT 17 g sterile water injection 1 mL 1 mL, [...] chew. 0829 (Given - Provider: Angela Cabrera RN)2219 (Given - Provider: Felipa Kraus RN) 0845 (Given - Provider: Angela Cabrera RN)2046 (Given - Provider: Nikkie Montenegro RN) 0907 (Given - Provider: Christiana Taylor RN) enoxaparin (LOVENOX) injection 40 mg 40 mg, Subcutaneous, DAILY - LMWH/Xa, First dose on Fri04/19/20 at 0900, Until Discontinued 1310 (Given - Provider: Angela Cabrera RN) 1311 (Given - Provider: Angela Cabrera RN) 1129 (Given - Provider: Christiana Taylor RN) insulin aspart U-100 (NovoLOG) injection 1-10 Units [...] least 3 hours. Waste Sort Code = [facility] 2210 (Not Given - Provider: Felipa Kraus RN - Reason: Contraindicated) 0845 (Given - Provider: Angela Cabrera RN)1309 (Not Given - Provider: Angela Cabrera RN - Reason: Order parameters not met)1848 (Not Given - Provider: Ana Temple RN - Reason: Order parameters not met)2114 (Not Given - Provider: Nikkie Montenegro RN - Reason: Contraindicated) 0807 (Given - Provider: Christiana Taylor RN - Comment: FSBS 131)1140 (Given - Provider: Christiana Taylor RN - Comment: FSBS 137)1800 (Not Given - Provider: Christiana Taylor RN - Reason: Other - Comment: patient being discharged) loratadine (CLARITIN) tablet 10 mg 10 mg, Oral, DAILY, First dose on Fri04/17/20 at 0900, Until Discontinued 828 (Given - Provider: Angela Cabrera RN) 08 (Given - Provider: Angela Cabrera RN) 906 (Given - Provider: Christiana Taylor RN) miconazole (MICATIN) 2 % powder Topical, EVERY 12 HOURS SCHEDULED (2 times per day), 84 doses, First dose on Fri04/17/20 at 0930, Last dose on Fri05/28/20 at 2100, Application site: skin folds 0831 (Given - Provider: Angela Cabrera RN)2220 (Given - Provider: Felipa Kraus, MATT) 846 (Given - Provider: Angela Cabrera RN)2047 (Given - Provider: Nikkie Montenegro RN) 907 (Given - Provider: Christiana Taylor RN) oxybutynin (DITROPAN) tablet 5 mg 5 mg, Oral, 2 TIMES DAILY, First dose on Fri04/17/20 at 0045, Until Discontinued, Therapeutic Interchange for oxybutynin XL 10mg tab Daily 08 (Given - Provider: Angela Cabrera RN)2219 (Given - Provider: Felipa Kraus, MATT) 844 (Given - Provider: Angela Cabrera RN)2045 (Given - Provider: Nikkie Montenegro RN) 906 (Given - Provider: Christiana Taylor, MATT) pantoprazole (PROTONIX) tablet 40 mg 40 mg, Oral, DAILY, First dose on Fri04/17/20 at 0900, Until Discontinued, Therapeutic Interchange for omeprazole (Prilosec) 20mg cap daily 08 (Given - Provider: Angela Cabrera RN) 08 (Given - Provider: Angela Cabrera RN) 906 (Given - Provider: Christiana Taylor RN) polyethylene glycol (GLYCOLAX, MIRALAX) packet 17 g 17 g, Oral, 2 TIMES DAILY, First dose on Fri04/24/20 at 1445, Until Discontinued, Mix in 8 oz of water 08 (Given - Provider: Angela Cabrera RN)2219 (Given - Provider: Felipa Kraus RN) 0845 (Given - Provider: Angela Cabrera RN)2046 (Given - Provider: Nikkie Montenegro RN) 0908 (Not Given - Provider: Christiana Taylor RN - Reason: Patient Declined) Continuous Medication Order 2020 04/27/2020 04/28/2020 0.9 % NaCl infusion (CANCELED) Intravenous, at 50 mL/hr, CONTINUOUS, Starting on Fri04/24/20 at 1445, Until Fri04/26/20 at 0951 0007 (Rate/Dose Verify - Provider: [...] Code = BKC 0242 (Given - Provider: Felipa Kraus RN)1435 (Given - Provider: Angela Cabrera RN)2221 (Given - Provider: Felipa Kraus RN) dextrose 50 % solution 25 mL 25 mL, Intravenous, PRN, Starting on 04/17/20 at 1310, Until [...] Angela Cabrera RN)1311 (Given - Provider: Angela Carbera RN)2046 (Given - Provider: Nikkie Montenegro RN) 0308 (Given - Provider: Nikkie Montenegro RN)0911 (Given - Provider: Christiana Taylor, RN)1710 (Given - Provider: Christiana Taylor, RN) phenol (CHLORASEPTIC) 1.4 % oral spray 1 [place](Linked Group 2) 1 [place], Oral, EVERY 2 HOURS PRN, Starting on Fri04/19/20 at 1304, Until 04/29/20 at 0046, Sore Throat 0242 (See Alternative - Provider: Felipa Kraus RN)1435 (See Alternative - Provider: Angela Cabrera RN)222 (See Alternative - Provider: Felipa Kraus RN) sterile water injection 1 mL(Linked Group 3) 1 mL, Injection, PRN, Starting on Fri04/17/20 [...] oral spray 1 SprayJump to med 1 [place], Oral, EVERY 2 HOURS PRN, Starting on [...] med 1 mg, Intramuscular, PRN, Starting on Fri04/17/20 at 1310, Until 04/29/20 at 0046, Low blood sugar, If FSBS less than 70 mg/dl, patient cannot take orally and without IV access, If patient is without IV access, give Glucagon 1 mg Intramuscularly, insert IV and call physician. And sterile water injection 1 mLJump to med 1 mL, Injection, PRN, Starting on Fri04/17/20 [...] PRN, Starting on 04/16/20 at 2326, Until 8/22/20 at 0046, Nausea, documented in this encounter Orders Medications Ordered That Edwin ht Not Have Been Administered Count Last Ordered Date First Ordered Date insulin aspart U-100 (NovoLO G) injection 1-10 Units 5 2020 04/17/2020 0.9 % NaCl infusion 4 04/24/2020 04/17/20 20 docusate sodium (COLACE) capsule 100 mg 1 0 04/24/2020 polyethylene glycol (GLYCOLA X, MIRALAX) packet 17 g 1 04/24/2020 lidocaine (XYLOCAINE) 2 % vi scous solution 10 mL 1 04/21/2020 benzocaine-menthoL (CEPACOL SORE THROAT) 15-3.6 mg 1 Lozenge 1 04/19/2020 phenol (CHLORASEPTIC) 1.4 % oral spray 1 [place] 1 04/19/2020 sodium chloride flush 1 04/19/2020 acetaminophen (OFIRMEV) infusion 1,000 mg 2 04/18/2020 04/16/2020 ceFOXItin (MEFOXIN) 2 g in d extrose 5% 50 mL IVPB 2 04/18/2020 dimenhyDRINATE (DRAMAMINE) i njection 12.5-25 mg 1 04/18/2020 enoxaparin (LOVENOX) injection 40 mg 1 04/08 fentaNYL (SUBLIMAZE) injection 25 mcg 1 07/2020 lactated ringers infusion 1 04/18/2020 morphine injection 2 mg 1 04/18/2020 ondansetron (ZOFRAN) injection 4 mg 2 04/1804/16/2020 ondansetron (ZOFRAN-ODT) dis integrating tablet 8 mg 1 04/18/2020 oxyCODONE (ROXICODONE) immed iate release tablet 5 mg 1 04/18/2020 oxyCODONE (ROXICODONE) immed iate release tablet 5-10 mg 1 04/18/2020 promethazine (PHENERGAN) 12. 5 mg in sodium chloride 10 mL injection 1 04/18/2020 promethazine (PHENERGAN) 6.2 5 mg in sodium chloride 10 mL injection 1 04/18/2020 scopolamine (TRANSDERM-SCOP) 1 mg over 3 days 1 Patch 1 04/18/2020 amLODIPine (NORVASC) tablet 10 mg 1 020 atorvastatin (LIPITOR) tablet 20 mg 1 04/17 dextrose 5 % and 0.9 % NaCl infusion 2 04/08 dextrose 50 % solution 25 mL 1 04/17/2020 glucagon (human recombinant) (GLUCAGEN) injection 1 mg 1 04/17/2020 lisinopriL (PRINIVIL;ZESTril) tablet 20 mg 1 04/17/2020 loratadine (CLARITIN) tablet 10 mg 1 2019 miconazole (MICATIN) 2 % powder 2 0 oxybutynin (DITROPAN) tablet 5 mg 1 020 pantoprazole (PROTONIX) tablet 40 mg 1 04/08 sterile water injection 1 mL 1 04/17/2020 acetaminophen (TYLENOL) suppository 650 mg 1 04/16/2020 acetaminophen (TYLENOL) tablet 650 mg 1 05/2020 morphine injection 4 mg 1 04/16/2020 morphine injection 8 mg 1 04/16/2020 ondansetron (ZOFRAN) tablet 4 mg 1 04/16/20 20 Nursing Count Last Ordered Date First Orde [...] 04/28/2020 documented in this encounter Care Teams Game Designer Relationship Specialty Start Date End Date Cristiane Pop MD [address] [place] [address] PCP - General Family Medicine 08/20/18 12/29/23 Garett Holt MD Internal Medicine-Gastroenterology 12/22/12 Ruiz Stokes MD [address] [place] [id number] Internal Medicine-Cardiovascular Disease 07/25/14 Yenny Schwab MD 651 [facility] [address] [place] [address] Internal Medicine-Rheumatology 12/11/16 documented as of this encounter
--- OUTSIDE RECORDS SUMMARY | 2024-07-22 16:09 | XMS_ITS | Encounter Summary ---
Author Organization [place] [address] Care Team Providers Care E Commerce Web Developer Name Role Phone Garett Holt MD Unavailable [phone] Ruiz Stokes MD Unavailable [phone] Yenny Schwab MD Unavailable [phone] Cristiane Shirley MD Primary Care Provider [phone] Reason for Visit * Reason Onset Date Comments Medication Refill 10/05/2019 Encounter Details Date Type Department Care Team (Late st Contact Info) Description 10/05/2019 Refill [facility] [address] [place] [address] Cristiane Shirley MD [address] [place] [address] Medication Refill Social History Tobacco Use Types [...] by mouth 2 times daily. 180 Tab 2 10/05/2019 01/05/2020 documented in this encounter Plan of Treatment Upcoming Encounters Date Type Department Care Team (Late st Contact Info) Description 07/29/2024 9:00 AM EST Appointment [facility] [address] [place] [address] Jomar Kim MD [address] [place] [address] documented as of this encounter Goals Goal Patient Goal Type Associated Problems Recent Progress Patient-Stated? Author Blood Pressure < 140/90 Blood Pressure 110/72(04/27 2:44 PM EDT) No Rachel Rogers RMA BMI (Calculated) < 30 General 50.9( 024 2:44 PM EDT) No Rachel Rogers RMA Eat better, exercise, reach an ideal body weight General No Ni Clinton, delimer Healing General On track(2018 9:18 AM EDT) [...] neuropathy weekly. ?? Refer to PCP and/or Potato Seed Cutter, Vascular Specialist as indicated. ?? Monitor patient [...] Tab by mouth 2 times daily. Reorder 09/14/2019 10/05/2019 documented as of this encounter Care Teams E Commerce Web Developer Relationship Specialty Start Date End Date Cristiane Shirley MD [address] [place] [address] PCP - General Family Medicine 08/20/18 12/29/23 Garett Holt MD Internal Medicine-Gastroenterology 12/22/12 Ruiz Stokes MD [address] [place], [place] [id number] Internal Medicine-Cardiovascular Disease 07/25/14 Yenny Schwab MD 651 [facility] [address] [place] [address] Internal Medicine-Rheumatology 12/11/16 documented as of this encounter
--- OUTSIDE RECORDS SUMMARY | 2024-07-22 16:09 | XMS_ITS | Encounter Summary ---
Author Organization [place] [address] Care Team Providers Care Csr Retail Name Role Phone Garett Holt MD Unavailable [phone] Ruiz Stokes MD Unavailable [phone] Yenny Schwab MD Unavailable [phone] Cristiane Shirley MD Primary Care Provider [phone] Reason for Visit * Reason Comments Medication Refill Encounter Details Date Type Department Care Team (Late st Contact Info) Description 11/02/2019 Refill [facility] [address] [place] [address] Cristiane Shirley MD [address] [place] [address] Medication Refill Social History Tobacco Use Types [...] Telephone Encounter - Lisbet Cesar CPhT - 11/02/2019 2:00 PM EST Medication refill requested too soon. Refill request denied. Refills sent on 09/14/19 #90 with 1 refill. Vivek contacted pharmacy and verified that refills are on file. Patient notified via [employer] (if MyChart active). documented in this encounter Plan of Treatment Upcoming Encounters Date Type Department Care Team (Late st Contact Info) Description 07/29/2024 9:00 AM EST Appointment [facility] [address] [place] [address] Jomar Kim MD [address] [facility] [place] [address] documented as of this encounter Goals Goal Patient Goal Type Associated Problems Recent Progress Patient-Stated? Author Blood Pressure < 140/90 Blood Pressure 110/72(04/27 2:44 PM EDT) No Rachel Rogers RMA BMI (Calculated) < 30 General 50.9( 024 2:44 PM EDT) No Rachel Rogers RMA Eat better, exercise, reach an ideal body weight General No Ni Clinton, liberal arts dean Healing General On track(2018 9:18 AM EDT) [...] neuropathy weekly. ?? Refer to PCP and/or Belt Sander Stone, Vascular Specialist as indicated. ?? Monitor patient compliance with wound care, diabetes management and proper offloading. Stay Tobacco Free Lifestyle On track(2020 10:23 AM EDT) No Wendy Espinoza LPN HEMOGLOBIN A1C < 7.0 Result Component 5.6(11/09/19 24 3:04 PM EST) No Rachel Rogers RMA documented as of this encounter Visit Diagnoses Not on filedocumented in this encounter Care Teams Csr Retail Relationship Specialty Start Date End Date Cristiane Shirley MD [address] [place] [address] PCP - General Family Medicine 08/20/18 12/29/23 Garett Holt MD Internal Medicine-Gastroenterology 12/22/12 Ruiz Stokes MD [address] [place], [place] [id number] Internal Medicine-Cardiovascular Disease 07/25/14 Yenny Schwab MD [address] [address] Internal Medicine-Rheumatology 12/11/16 documented as of this encounter
--- OUTSIDE RECORDS SUMMARY | 2024-07-22 16:09 | XMS_ITS | Encounter Summary ---
Author Organization [place] [address] Care Team Providers Care Clinical Data Management Manager Name Role Phone Garett Holt MD Unavailable [phone] Ruiz Stokes MD Unavailable [phone] Yenny Schwab MD Unavailable [phone] Cristiane Shirley MD Primary Care Provider [phone] Encounter Details Date Type Department Care Team (Latest Contact Info) Description 06/24/2019 9:45 AM EDT - 06/24/2019 11:59 PM EDT Hospital Encounter [facility] [address] [place] [address] Acute bronchitis, unspecified organism; Pneumonia due to infectious organism, unspecified laterality, unspecified part of lung Discharge Disposition: Home or Self Care Social [...] hearing? Answer Date of Assessment Author No 01/23/2019 9:05 AM Nitin Rider CMA * Is the person blind or does he/she have serious difficulty seeing even when wearing glasses? Answer Date of Assessment Author No 01/23/2019 9:05 AM Nitin Rider CMA * Does this person have serious difficulty walking or climbing stairs? Answer Date of Assessment Author No 01/23/2019 9:05 AM Nitin Rider CMA * Does this person have difficulty dressing or bathing? Answer Date of Assessment Author No 01/23/2019 9:05 AM Nitin Rider CMA * Because of a physical, mental or emotional condition, does this person have difficulty doing errands alone such as visiting a doctor's office or shopping? Answer Date of Assessment Author No 01/23/2019 9:05 AM Nitin Rider CMA documented as of this encounter Mental Status * Because of a physical, mental or emotional condition, does this person have serious difficulty concentrating, remembering or making decisions? Answer Entry Date Author No 01/23/2019 9:05 AM Nitin Rider CMA documented in this encounter Medications at Time of Discharge CALCIUM ORAL Take 1 Tab by mouth daily. cefdinir (OMNICEF) 300 mg Oral CapsuleIndication s:Acute bacterial sinusitis Take 1 Cap by mouth 2 times daily for 10 days. 20 Cap 06/24/2019 07/04/2019 documented as of this encounter Discharge Disposition Disposition Code Departure Means Destination Home or Self Care documented in this encounter Plan of Treatment Upcoming Encounters Date Type Department Care Team (Late st Contact Info) Description 07/29/2024 9:00 AM EST Appointment [facility] [address] [place] [address] Jomar Kim MD [address] [place] [address] documented as of this encounter Goals Goal Patient Goal Type Associated Problems Recent Progress Patient-Stated? Author Blood Pressure < 140/90 Blood Pressure 110/72(04/27 2:44 PM EDT) No Rachel Rogers RMA BMI (Calculated) < 30 General 50.9( 2:44 PM EDT) No Rachel Rogers RMA Eat better, exercise, reach an ideal body weight General No Ni Clinton, library cataloging technician Healing General On track(2018 9:18 AM [...] neuropathy weekly. ?? Refer to PCP and/or Looseleaf Binder Coverer, Vascular Specialist as indicated. ?? Monitor patient compliance with wound care, diabetes management and proper offloading. Stay Tobacco Free Lifestyle On track(2020 10:23 AM EDT) No Wendy Espinoza LPN HEMOGLOBIN A1C < 7.0 Result Component 5.6(11/09/19 24 3:04 PM EST) No Rachel Rogers RMA documented as of this encounter Procedures Procedure Name Priority Date/Time Associated Diagnosis Comments XR CHEST PA AND LATERAL Routine 06/24/2019 10:05 AM EDT Acute bronchitis, unspecified organism Pneumonia due to infectious organism, unspecified laterality, unspecified part of lung documented in this encounter Results * XR CHEST PA AND LATERAL (06/24/2019 10:05 AM EDT) Anatomical Region Laterality Modality Chest Radiographic Fbay ging 06/24/2019 10:0 5 AM EDT Impressions 06/24/2019 10:07 AM EDT No acute finding. - Narrative 06/24/2019 10:07 AM EDT PA AND LATERAL CHEST X-RAY, ??06/24/2019 10:05 AM CLINICAL HISTORY: ??J20.9-Acute bronchitis, itgkswlpbpz-QKV-63-CM J18.9-Pneumonia, unspecified [id number]-[id number]-CM COMPARISON: ??06/17/2016 PROCEDURE COMMENTS: Frontal and lateral views of the chest. FINDINGS: Cardiovascular structures within normal limits. ??No pneumonia or effusion. ??No pneumothorax. Procedure Note Kuldip Keith MD - 06/24/2019 PA AND LATERAL CHEST X-RAY, 06/24/2019 10:05 AM CLINICAL HISTORY: J20.9-Acute bronchitis, cdhjykqgbqo-FBX-91-CM J18.9-Pneumonia, unspecified iljpcqms-GPK-47-CM COMPARISON: 06/17/2016 PROCEDURE COMMENTS: Frontal and lateral views of the chest. FINDINGS: Cardiovascular structures within normal limits. No pneumoniaor effusion. No pneumothorax. IMPRESSION: No acute finding. - Cristiane Shirley MD IMG DIAGNOSTIC IMAGING ORDERAB LES Final Result documented in this encounter Visit Diagnoses Diagnosis Acute bronchitis, unspecified organism Pneumonia due to infectious organism, unspecified laterality, unspecified part of lung documented in this encounter Care Teams Clinical Data Management Manager Relationship Specialty Start Date End Date Cristiane Shirley MD [address] [place] [address] PCP - General Family Medicine 08/20/18 12/29/23 Garett Holt MD Internal Medicine-Gastroenterology 12/22/12 Ruiz Stokes MD [address] [place] [address] Internal Medicine-Cardiovascular Disease 07/25/14 Yenny Schwab MD [address] [place] [address] Internal Medicine-Rheumatology 12/11/16 documented as of this encounter
--- OUTSIDE RECORDS SUMMARY | 2024-07-22 16:09 | XMS_ITS | Encounter Summary ---
Author Organization [place] [address] Care Team Providers Care Manager Content Name Role Phone Garett Holt MD Unavailable [phone] Ruiz Stokes MD Unavailable [phone] Yenny Schwab MD Unavailable [phone] Cristiane Shirley MD Primary Care Provider [phone] Reason for Visit * Reason Comments Hospital Follow Up Pneumonia Chronic Obstructive Pulmonary Disease Encounter Details Date Type Department Care Team (Late st Contact Info) Description 06/10/2019 10:00 AM EDT Office Visit [facility] [address] [place] [address] Cristiane Shirley MD [address] [place] [address] Hospital discharge follow-up (Primary Dx); Acute bronchitis, unspecified organism; Pneumonia due to infectious organism, unspecified laterality, unspecified part of lung; Type 2 diabetes mellitus without complication, without [...] Sign Reading Time Taken Comments Blood Pressure 138/86 06/10/2019 10:22 AM EDT Pulse - - Temperature 36.4 ??C (97.5 ??F) 06/10/2019 10:22 AM E DT Respiratory Rate - - Oxygen Saturation - - Inhaled Oxygen Concentration - - Weight 132.9 kg (293 lb) 06/10/2019 10:22 AM EDT Height 157.5 cm (5' 2 ) 06/10/2019 10:22 AM EDT Body Mass Index 53.59 06/10/2019 10:22 AM EDT documented in this encounter Functional [...] 1 Tab by mouth 2 times daily. 60 Tab 2 06/10/2019 09/14/2019 documented in this encounter Progress Notes * Cristiane Shirley MD - 06/10/2019 10:00 AM EDT Vitals: 06/10/19 1022 BP: 138/86 Temp: 97.5 ??F (36.4 ??C) TempSrc: Tympanic Weight: 293 lb (132.9 kg) Height: 5' 2 (1.575 m) SUBJECTIVE: Chief Complaint Patient presents with ??? Hospital Follow Up ??? Pneumonia ??? Chronic Obstructive Pulmonary Disease HPI: Hospital Follow-Up: Hospital/ER Follow-Up: Ms. Jamil is a 64 y.o. female here for hospital follow up. She was admitted 06/07/19 and discharged06/07/19 with a diagnosis of copd and pneumonia. She is compliant with discharge medications / [...] 30 days. Code Complexity Face to face 85738 High complexity within 7 days 52135 High complexity 8-14 days 38540 Medium complexity Within 14 days Diabetes: Home [...] medications/treatments. Diet has been reviewed with patient. COPD: The patient is not having any problems with his current medications. The patient does not report any new symptoms of COPD. Symptoms include cough, congestion, and wheezing Review of Systems Constitutional: Positive for fatigue. Negative for fever. HENT: Positive for congestion, rhinorrhea, sinus pressure and sinus pain. Eyes: Negative. Respiratory: Positive for cough, shortness of breath and wheezing. Cardiovascular: Negative. Gastrointestinal: Negative for abdominal pain and diarrhea. Endocrine: Negative. Genitourinary: Negative. Musculoskeletal: Positive for arthralgias and gait problem. Skin: Negative for rash. Hematological: Negative. Psychiatric/Behavioral: Negative. OBJECTIVE: Physical Exam Vitals signs and nursing note reviewed. Constitutional: Appearance: She is obese. HENT: Head: Normocephalic. Right Ear: Tympanic membrane normal. Left Ear: Tympanic membrane normal. Cardiovascular: Rate and Rhythm: Normal rate. Heart sounds: No murmur. Pulmonary: Effort: Pulmonary effort is normal. Breath sounds: Wheezing present. Abdominal: Palpations: Abdomen is soft. Tenderness: There is no tenderness. Musculoskeletal: General: Tenderness present. Neurological: General: No focal deficit present. Mental Status: She is alert. Psychiatric: Mood and Affect: Mood normal. Assessment Diagnoses and all orders for this visit: Hospital discharge follow-up Acute bronchitis, unspecified organism - XR CHEST PA AND LATERAL; Future Pneumonia due to infectious organism, unspecified laterality, unspecified part of lung - XR CHEST PA AND LATERAL; Future Type 2 diabetes mellitus without complication, without long-term current use of insulin (HCC) (Chronic) stable Other orders - oxybutynin (DITROPAN-XL) 10 mg Oral Tablet Extended Rel 24 hr; Take 1 Tab by mouth 2 times daily.Dispense: 60 Tab; Refill: 2 - FLU VACCINE QUADRIVALENT FLUBLOK (PF) 18+ Went to [facility]. She was diagnosed with pneumonia and given azithromycin and prednisone. She is feeling better. She was not kept overnight. They said she has copd but she is not a smoker only did for 10 year. pfts when well. Above problems were discussed with patient and [...] 9:00 AM EST Appointment [facility] [address] [place] [address] Jomar Kim MD [address] [place] [address] documented as of this encounter Goals Goal Patient Goal Type Associated Problems Recent Progress Patient-Stated? Author Blood Pressure < 140/90 Blood Pressure 110/72(04/27 2:44 PM EDT) No Rachel Rogers, [place] BMI (Calculated) < 30 General 50.9( 024 2:44 PM EDT) No Rachel Rogers, [place] Eat better, exercise, reach an ideal body weight General No Ni Clinton, biology teacher Healing General On track(2018 9:18 AM [...] neuropathy weekly. ?? Refer to PCP and/or Cashier Clerk, Vascular Specialist as indicated. ?? Monitor patient compliance with wound care, diabetes management and proper offloading. Stay Tobacco Free Lifestyle On track(2020 10:23 AM EDT) No Wendy Espinoza LPN HEMOGLOBIN A1C < 7.0 Result Component 5.6(11/09/19 24 3:04 PM EST) No Rachel Rogers RMA documented as of this encounter Results * XR CHEST PA AND LATERAL (06/24/2019 10:05 AM EDT) Anatomical Region Laterality Modality Chest Radiographic Faby ging 06/24/2019 10:0 5 AM EDT Impressions 06/24/2019 10:07 AM EDT No acute finding. - Narrative 06/24/2019 10:07 AM EDT PA AND LATERAL CHEST X-RAY, ??06/24/2019 10:05 AM CLINICAL HISTORY: ??J20.9-Acute bronchitis, [id number]-KPD-28-CM J18.9-Pneumonia, unspecified [id number]-[id number]-57-CM COMPARISON: ??06/17/2016 PROCEDURE COMMENTS: Frontal and lateral views of the chest. FINDINGS: Cardiovascular structures within normal limits. ??No pneumonia or effusion. ??No pneumothorax. Procedure Note Kuldip Keith MD - 06/24/2019 PA AND LATERAL CHEST X-RAY, 06/24/2019 10:05 AM CLINICAL HISTORY: J20.9-Acute bronchitis, bybrplsxqwn-AXU-52-CM J18.9-Pneumonia, unspecified [id number]-[id number]-CM COMPARISON: 06/17/2016 PROCEDURE COMMENTS: Frontal and lateral views of the chest. FINDINGS: Cardiovascular structures within normal limits. No pneumoniaor effusion. No pneumothorax. IMPRESSION: No acute finding. - us Cristiane Shirley MD IMG DIAGNOSTIC IMAGING ORDERAB LES Final Result documented in this encounter Visit Diagnoses Diagnosis Hospital discharge follow-up- Primary Other follow-up examination Acute bronchitis, unspecified organism Pneumonia due to infectious organism, unspecified laterality, unspecified part of lung Type 2 diabetes mellitus without complication, without long-term current use of insulin ([facility]) Acute bronchitis, unspecified organism Pneumonia due to infectious organism, unspecified laterality, unspecified part of lung documented in this encounter Discontinued Medications Medication Sig Discontinue Reason Start Date End Da te oxybutynin (DITROPAN-XL) 10 mg Oral Tablet Extended Rel 24 hr Take 1 Tab by mouth 2 times daily. Reorder 03/18/2019 06/10/2019 documented as of this encounter Historical Medications * This list may reflect changes made after this encounter. predniSONE (DELTASONE) 50 mg Oral Tablet Take 50 mg by mouth daily. 0 06/07/2019 06/24/2019 azithromycin (ZITHROMAX) 250 mg Oral Tablet TAKE 2 TABLETS BY MOUTH ON DAY 1 AND THEN TAKE 1 TABLET BY MOUTH ONCE A DAY ON DAY 2 THROUGH DAY 5 0 06/07/2019 06/24/2019 added in this encounter Orders Immunization/Injection Count Last Ordered Date First Ordered Date FLU VACCINE QUADRIVALENT FLUBLOK (PF) 18+ 1 06/10/2019 documented in this encounter Care Teams Manager Content Relationship Specialty Start Date End Date Cristiane Shirley MD [address] [place] [address] PCP - General Family Medicine 08/20/18 12/29/23 Garett Holt MD Internal Medicine-Gastroenterology 12/22/12 Ruiz Stokes MD [address] [place] [address] Internal Medicine-Cardiovascular Disease 07/25/14 Yenny Schwab MD [address] [facility] Building [address] [place] [address] Internal Medicine-Rheumatology 12/11/16 documented as of this encounter
--- OUTSIDE RECORDS SUMMARY | 2024-07-22 16:09 | XMS_ITS | Encounter Summary ---
Author Organization [place] [address] Care Team Providers Care Modeling Agency Manager Name Role Phone Garett Holt MD Unavailable [phone] Ruiz Stokes MD Unavailable [phone] Yenny Schwab MD Unavailable [phone] Cristiane Shirley MD Primary Care Provider Reason for Visit * Reason Onset Date Comments Prior Authorization 09/16/2019 Encounter Details Date Type Department Care Team (Late st Contact Info) Description 09/16/2019 Telephone [facility] [address] [place] [address] Cristiane Shirley MD [address] [place] [address] Prior Authorization Social History Tobacco Use Types [...] Telephone Encounter - Cristiane Shirley MD - 09/16/2019 7:58 AM EST Please notify * Telephone Encounter - Daisy Newman - 09/16/2019 7:51 AM EST PA for Albuterol Sulfate 2.5mg/3ml nebulizer solution DENIED. Denial reason: Albuterol Sulfate solution is a nebulizer. A nebulizer is a piece of Durable medicalequipment. Drugs used with DME in the home are covered under Medicare Part B. Our records show thatyou do not live in a snf care facility. We cannot pay for drugs under Medicare Part D if theyare covered under Medicare Part A or B. We did not decide whether Albuterol Sulfate nebulizer solution is medically necessary. We made our decision only on the fact we cannot pay for the drug under Medicare Part D. documented in this encounter Plan of Treatment Upcoming Encounters Date Type Department Care Team (Late st Contact Info) Description 07/29/2024 9:00 AM EST Appointment [facility] [address] [place] [address] Jomar Kim MD [address] [place] [address] documented as of this encounter Goals Goal Patient Goal Type Associated Problems Recent Progress Patient-Stated? Author Blood Pressure < 140/90 Blood Pressure 110/72(04/27 2:44 PM EDT) No Rachel Rogers RMA BMI (Calculated) < 30 General 50.9( 024 2:44 PM EDT) No Rachel Rogers RMA Eat better, exercise, reach an ideal body weight General No Ni Clinton, lecturer in marketing Healing General On track(2018 9:18 AM EDT) [...] neuropathy weekly. ?? Refer to PCP and/or Fertilizer Supervisor, Vascular Specialist as indicated. ?? Monitor patient compliance with wound care, diabetes management and proper offloading. Stay Tobacco Free Lifestyle On track(2020 10:23 AM EDT) Wendy Moon LPN HEMOGLOBIN A1C < 7.0 Result Component 5.6(11/09/19 3:04 PM EST) Rachel Regan RMA documented as of this encounter Visit Diagnoses Not on filedocumented in this encounter Care Teams Modeling Agency Manager Relationship Specialty Start Date End Date Cristiane Shirley MD [address] [place] [address] PCP - General Family Medicine 08/20/18 12/29/23 Garett Holt MD Internal Medicine-Gastroenterology 12/22/12 Ruiz Stokes MD [address] [place] [address] Internal Medicine-Cardiovascular Disease 07/25/14 Yenny Schwab MD [address] [address] Internal Medicine-Rheumatology 12/11/16 documented as of this encounter
--- OUTSIDE RECORDS SUMMARY | 2024-07-22 16:09 | XMS_ITS | Encounter Summary ---
Author Organization [place] [address] Care Team Providers Care Petrophysical Engineer Name Role Phone Garett Holt MD Unavailable [phone] Ruiz Stokes MD Unavailable [phone] Yenny Schwab MD Unavailable [phone] Cristiane Shirley MD Primary Care Provider Reason for Visit * Reason Onset Date Comments Medication Refill 05/13/2019 Encounter Details Date Type Department Care Team (Late st Contact Info) Description 05/13/2019 Refill [facility] [address] [place] [address] Cristiane Shirley MD [address] [place] [address] Medication Refill Social History Tobacco Use Types [...] BY MOUTH EVERY DAY 90 Tab 1 05/13/2019 09/14/2019 documented in this encounter Miscellaneous Notes * Telephone Encounter - Daisy Newman - 05/13/2019 11:37 AM EDT Patient needs a refill of her Atorvastatin but she needs it to go to [facility] documented in this encounter Plan of Treatment Upcoming Encounters Date Type Department Care Team (Late st Contact Info) Description 07/29/2024 9:00 AM EST Appointment [facility] [address] [place], [place] [id number] Jomar Kim MD [address] [place] [address] documented as of this encounter Goals Goal Patient Goal Type Associated Problems Recent Progress Patient-Stated? Author Blood Pressure < 140/90 Blood Pressure 110/72(04/27 2:44 PM EDT) No Rachel Rogers, RMA BMI (Calculated) < 30 General 50.9( 2:44 PM EDT) No Rachel Rogers RMA Eat better, exercise, reach an ideal body weight General No Ni Clinton, reeler operator Healing General On track(2018 9:18 AM EDT) No Bessie oMrse, RN Note: Wound volume reduction goals ?? [...] neuropathy weekly. ?? Refer to PCP and/or University Demonstrator, Vascular Specialist as indicated. ?? Monitor patient compliance with wound care, diabetes management and proper offloading. Stay Tobacco Free Lifestyle On track(2020 10:23 AM EDT) No Beach, Jaunita, QUALITY SYSTEMS ENGINEER HEMOGLOBIN A1C < 7.0 Result Component 5.6(11/09/19 24 3:04 PM EST) No Rachel Rogers, RMA documented as of this encounter Visit Diagnoses Not on filedocumented in this encounter Discontinued Medications Medication Sig Discontinue Reason Start Date End Da te atorvastatin (LIPITOR) 20 mg Oral Tablet TAKE 1 TABLET BY MOUTH EVERY DAY Reorder 05/13/2019 05/13/2019 documented as of this encounter Care Teams Petrophysical Engineer Relationship Specialty Start Date End Date Cristiane Shirley MD [address] [place] [address] PCP - General Family Medicine 08/20/18 12/29/23 Garett Holt MD Internal Medicine-Gastroenterology 12/22/12 Ruiz Stokes MD [address] [place] [address] Internal Medicine-Cardiovascular Disease 07/25/14 Yenny Schwab MD [address] [address] Internal Medicine-Rheumatology 12/11/16 documented as of this encounter
--- OUTSIDE RECORDS SUMMARY | 2024-07-22 16:09 | XMS_ITS | Encounter Summary ---
Author Organization [place] [address] Care Team Providers Care Manager Room Name Role Phone Garett Holt MD Unavailable [phone] Ruiz Stokes MD Unavailable [phone] Yenny Schwab MD Unavailable [phone] Cristiane Shirley MD Primary Care Provider [phone] Encounter Details Date Type Department Care Team (Latest Contact Info) Description 10/13/2019 3:45 PM EST - 10/13/2019 11:59 PM EST Hospital Encounter [facility] [address] [place] [address] Chronic right shoulder pain Discharge Disposition: Home or Self Care [...] Author No 09/14/2019 10:05 AM DARLINE MorganBrynn MULU * Is the person blind or does he/she have serious difficulty seeing even when wearing glasses? Answer Date of Assessment Author No 09/14/2019 10:05 AM DARLINE Brynn Morgan MULU * Does this person have serious difficulty walking or climbing stairs? Answer Date of Assessment Author No 09/14/2019 10:05 AM DARLINE RollinsBrynn clark MULU * Does this person have difficulty dressing or bathing? Answer Date of Assessment Author No 09/14/2019 10:05 AM DARLINE Brynn Morgan MULU * Because of a physical, mental or emotional condition, does this person have difficulty doing errands alone such as visiting a doctor's office or shopping? Answer Date of Assessment Author No 09/14/2019 10:05 AM DARLINE Brynn Morgan MULU documented as of this [...] by mouth daily. 30 Tab 11 09/14/2019 AMITIZA 24 mcg Oral Capsule TAKE ONE CAPSULE BY MOUTH TWICE A DAY. THIS REPLACES LINZESS. 126 Cap 09/13/2019 0 aspirin (ASPIRIN LOW DOSE) 81 mg Oral Tablet, Delayed Release (E.C.) Take 1 Tab by mouth daily. 30 Tab 5 09/14/2019 1 cefdinir (OMNICEF) 300 mg Oral CapsuleIndication s:Acute bronchitis, unspecified organism Take 1 Cap by mouth 2 times daily for 10 days. 20 Cap 10/13/2019 0 docusate sodium (COLACE) 100 mg Oral Capsule Take 1 Cap by mouth 2 times daily. 60 Cap 09/14/2019 1 fluticasone propionate (FLONASE) 50 mcg/actuation Nasl [place], SuspensionIndicat ions:ETD (Eustachian tube dysfunction), right INSTILL 1 SPRAY IN EACH NOSTRIL EVERY DAY 16 g 6 09/14/2019 0 naproxen sodium (ANAPROX) 220 mg Oral Tablet Take 1 Tab by mouth 2 times daily (with meals). 30 Tab 5 09/14/2019 0 omeprazole (PRILOSEC) 20 mg Oral Capsule, Delayed Release(E.C.) Take 1 Cap by mouth daily. 90 Cap 2 09/14/2019 0 oxybutynin (DITROPAN-XL) 10 mg Oral Tablet Extended Rel 24 hr Take 1 Tab by mouth 2 times daily. 180 Tab 2 10/05/2019 0 predniSONE (DELTASONE) 20 mg Oral Tablet Take 2 Tabs by mouth daily for 5 days. 10 Tab 10/13/2019 0 documented as of this encounter Discharge Disposition Disposition Code Departure Means Destination Home or Self Care documented in this encounter Plan of Treatment Upcoming Encounters Date Type Department Care Team (Late st Contact Info) Description 07/29/2024 9:00 AM EST Appointment [facility] [address] [place] [address] Jomar Kim MD [address] [place] [address] documented as of this encounter Goals Goal Patient Goal Type Associated Problems Recent Progress Patient-Stated? Author Blood Pressure < 140/90 Blood Pressure 110/72(04/27 2:44 PM EDT) No Rachel Rogers RMA BMI (Calculated) < 30 General 50.9( 024 2:44 PM EDT) No Rachel Rogers RMA Eat better, exercise, reach an ideal body weight General No Ni Clinton, process design chemical engineer Healing General On track(2018 9:18 AM EDT) [...] neuropathy weekly. ?? Refer to PCP and/or Day Haul Or Farm Charter Bus Driver, Vascular Specialist as indicated. ?? Monitor patient compliance with wound care, diabetes management and proper offloading. Stay Tobacco Free Lifestyle On track(2020 10:23 AM EDT) No Wendy Espinoza LPN HEMOGLOBIN A1C < 7.0 Result Component 5.6(11/09/19 24 3:04 PM EST) No Rachel Rogers RMA documented as of this encounter Procedures Procedure Name Priority Date/Time Associated Diagnosis Comments XR SHOULDER RIGHT 3 VIEWS Routine 10/13/2019 4:00 PM EST Chronic right shoulder pain documented in this encounter Results * XR SHOULDER RIGHT 3 VIEWS (10/13/2019 4:00 PM EST) Anatomical Region Laterality Modality Shoulder Radiographic Faby ging 10/13/2019 4:00 PM EST Impressions 10/13/2019 4:05 PM EST No acute bony abnormality of the shoulder. - Narrative 10/13/2019 4:05 PM EST XR SHOULDER RIGHT 3 VIEWS, ??10/13/2019 4:00 PM CLINICAL HISTORY: ??M25.511-Pain in right ekfxgayo-URN-78-CM G89.29-Other chronic uiyd-EYP-38-CM COMPARISON: ??None. PROCEDURE COMMENTS: 3 views right shoulder. FINDINGS: Acromioclavicular and glenohumeral degenerative changes are noted, mild. No fracture or dislocation identified. Procedure Note Stone Craig MD - 10/13/2019 XR SHOULDER RIGHT 3 VIEWS, 10/13/2019 4:00 PM CLINICAL HISTORY: M25.511-Pain in right pnlneicr-ARO-92-CM G89.29-Other chronic jlyn-BZK-84-CM COMPARISON: None. PROCEDURE COMMENTS: 3 views right shoulder. FINDINGS: Acromioclavicular and glenohumeral degenerative changes arenoted, mild. No fracture or dislocation identified. IMPRESSION: No acute bony abnormality of the shoulder. - us Cristiane Shirley MD IMG DIAGNOSTIC IMAGING ORDERAB LES Final Result documented in this encounter Visit Diagnoses Diagnosis Chronic right shoulder pain Pain in joint, shoulder region documented in this encounter Care Teams Manager Room Relationship Specialty Start Date End Date Cristiane Shirley MD [address] [place] [address] PCP - General Family Medicine 08/20/18 12/29/23 Garett Holt MD Internal Medicine-Gastroenterology 12/22/12 Ruiz Stokes MD [address] [place] [address] Internal Medicine-Cardiovascular Disease 07/25/14 Yenny Schwab MD 651 [facility] Building [address] [place] [address] Internal Medicine-Rheumatology 12/11/16 documented as of this encounter
--- OUTSIDE RECORDS SUMMARY | 2024-07-22 16:09 | XMS_ITS | Encounter Summary ---
Author Organization [place] [address] Care Team Providers Care Medical Claims Assistant Name Role Phone Garett Holt MD Unavailable [phone] Ruiz Stokes MD Unavailable [phone] Yenny Schwab MD Unavailable [phone] Cristiane Shirley MD Primary Care Provider [phone] Reason for Visit * Reason Comments Medication Refill Encounter Details Date Type Department Care Team (Late st Contact Info) Description 05/12/[address] [facility] [address] [place] [address] Cristiane Shirley MD [address] [place] [address] Medication Refill Social History Tobacco Use Types [...] MOUTH EVERY DAY 90 Tab 1 05/13/2019 05/13/2019 documented in this encounter Plan of Treatment Upcoming Encounters Date Type Department Care Team (Late st Contact Info) Description 07/29/2024 9:00 AM EST Appointment [facility] [address] [place] [address] Jomar Kim MD [address] [place] [address] documented as of this encounter Goals Goal Patient Goal Type Associated Problems Recent Progress Patient-Stated? Author Blood Pressure < 140/90 Blood Pressure 110/72(04/27 2:44 PM EDT) Rachel Regan RMA BMI (Calculated) < 30 General 50.9( 024 2:44 PM EDT) No Rachel Rogers RMA Eat better, exercise, reach an ideal body weight General No Ni Clinton, petroleum inspector Healing General On track(2018 9:18 AM EDT) [...] weekly. ?? Refer to PCP and/or Clinical Education Assistant, Vascular Specialist as indicated. ?? Monitor [...] Oral Tablet TAKE 1 TABLET BY MOUTH ONCE DAILY Reorder 05/07/2019 05/12/2019 documented as of this encounter Care Teams Medical Claims Assistant Relationship Specialty Start Date End Date Utter, Cristiane J, MD [address] [place] [address] PCP - General Family Medicine 08/20/18 12/29/23 Garett Holt MD Internal Medicine-Gastroenterology 12/22/12 Ruiz Stokes MD [address] [place], [place] [id number] Internal Medicine-Cardiovascular Disease 07/25/14 Yenny Schwab MD 651 [facility] [address] [place] [address] Internal Medicine-Rheumatology 12/11/16 documented as of this encounter
--- OUTSIDE RECORDS SUMMARY | 2024-07-22 16:09 | XMS_ITS | Encounter Summary ---
Author Organization [facility] [place] [address] Care Team Providers Care Mine Promotor Name Role Phone Garett Holt MD Unavailable [phone] Ruiz Stokes MD Unavailable [phone] Yenny Schwab MD Unavailable [phone] Cristiane Shirley MD Primary Care Provider [phone] Encounter Details Date Type Department Care Team (Latest Contact Info) Description 11/04/2019 Travel Social History Tobacco Use Types Packs/Day [...] 9:00 AM EST Appointment [facility] [address] [facility] [place] [address] Jomar Kim MD [address] [place] [address] documented as of this encounter Goals Goal Patient Goal Type Associated Problems Recent Progress Patient-Stated? Author Blood Pressure < 140/90 Blood Pressure 110/72(04/27 2:44 PM EDT) No Rachel Rogers RMA BMI (Calculated) < 30 General 50.9( 2:44 PM EDT) No Rachel Rogers RMA Eat better, exercise, reach an ideal body weight General No Ni Clinton, operations and maintenance technican Healing General On track(2018 9:18 AM EDT) [...] neuropathy weekly. ?? Refer to PCP and/or Superintendent Quarry, Vascular Specialist as indicated. ?? Monitor patient compliance with wound care, diabetes management and proper offloading. Stay Tobacco Free Lifestyle On track(2020 10:23 AM EDT) Wendy Moon LPN HEMOGLOBIN A1C < 7.0 Result Component 5.6(11/09/19 24 3:04 PM EST) No Rcahel Rogers RMA documented as of this encounter Visit Diagnoses Not on filedocumented in this encounter Care Teams Mine Promotor Relationship Specialty Start Date End Date Cristiane Shirley MD [address] [place] [id number] PCP - General Family Medicine 08/20/18 12/29/23 Garett Holt MD Internal Medicine-Gastroenterology 12/22/12 Ruiz Stokes MD [address] [place] [address] Internal Medicine-Cardiovascular Disease 07/25/14 Yenny Schwab MD 651 [facility] [address] [place] [address] Internal Medicine-Rheumatology 12/11/16 documented as of this encounter
--- OUTSIDE RECORDS SUMMARY | 2024-07-22 16:09 | XMS_ITS | Encounter Summary ---
Author Organization [place] [address] Care Team Providers Care Supervisor Waterproofing Name Role Phone Garett Holt MD Unavailable [phone] Ruiz Stokes MD Unavailable [phone] Yenny Schwab MD Unavailable [phone] Cristiane Shirley MD Primary Care Provider Reason for Visit * Reason Comments Medication Refill Encounter Details Date Type Department Care Team (Late st Contact Info) Description 11/02/2019 Refill [facility] [address] [place] [address] Cristiane Shirley MD [address] [place] [address] Medication Refill Social History Tobacco Use Types [...] Telephone Encounter - Cesilia Sorto CPhT - 11/02/2019 1:22 PM EST Medication refill requested too soon. Refill request denied. Refills sent on 09/14/19, #90 with 1 refill Vivek contacted pharmacy and verified that refills are on file. Patient notified via [facility] (if MyChart active). documented in this encounter Plan of Treatment Upcoming Encounters Date Type Department Care Team (Late st Contact Info) Description 07/29/2024 9:00 AM EST Appointment [facility] [address] [place] [address] Jomar Kim MD [address] [place] [address] documented as of this encounter Goals Goal Patient Goal Type Associated Problems Recent Progress Patient-Stated? Author Blood Pressure < 140/90 Blood Pressure 110/72(04/27 2:44 PM EDT) No Rachel Rogers RMA BMI (Calculated) < 30 General 50.9( 024 2:44 PM EDT) No Rachel Rogers RMA Eat better, exercise, reach an ideal body weight General No Ni Clinton, varying exceptionalities teacher Healing General On track(2018 9:18 AM [...] weekly. ?? Refer to PCP and/or Contract Attorney, Vascular Specialist as indicated. ?? Monitor patient compliance with wound care, diabetes management and proper offloading. Stay Tobacco Free Lifestyle On track(2020 10:23 AM EDT) No Wendy Espinoza LPN HEMOGLOBIN A1C < 7.0 Result Component 5.6(11/09/19 24 3:04 PM EST) No Rachel Rogers RMA documented as of this encounter Visit Diagnoses Not on filedocumented in this encounter Care Teams Supervisor Waterproofing Relationship Specialty Start Date End Date Cristiane Shirley MD [address] [place] [address] PCP - General Family Medicine 08/20/18 12/29/23 Garett Holt MD Internal Medicine-Gastroenterology 12/22/12 Ruiz Stokes MD [address] [place], [place] [id number] Internal Medicine-Cardiovascular Disease 07/25/14 Yenny Schwab MD 651 [facility] [address] [place] [address] Internal Medicine-Rheumatology 12/11/16 documented as of this encounter
--- OUTSIDE RECORDS SUMMARY | 2024-07-22 16:09 | XMS_ITS | Encounter Summary ---
Author Organization [place] [address] Care Team Providers Care Assistant Director Of Public Works Name Role Phone Garett Holt MD Unavailable [phone] Ruiz Stokes MD Unavailable [phone] Yenny Schwab MD Unavailable [phone] Cristiane Shirley MD Primary Care Provider [phone] Reason for Visit * Reason Onset Date Comments Medication Management 09/03/2019 Adherence Outreach Encounter Details Date Type Department Care Team (Late st Contact Info) Description 09/03/2019 Patient Outreach [facility] [address] [place] [address] Yenni Guaman, PharmD Medication Management (Adherence Outreach) Social History Tobacco Use Types Packs/Day Years [...] of Assessment Author No 01/23/2019 9:05 AM EDT Nitin Yousif CMA * Is the person blind or does he/she have serious difficulty seeing even when wearing glasses? Answer Date of Assessment Author No 01/23/2019 9:05 AM EDT Nitin Yousif CONTACT CENTER REPRESENTATIVE * Does this person have serious difficulty walking or climbing stairs? Answer Date of Assessment Author No 01/23/2019 9:05 AM EDT Nitin Yousif CMA * Does this person have difficulty dressing or bathing? Answer Date of Assessment Author No 01/23/2019 9:05 AM EDT Nitin Yousif CONTACT CENTER REPRESENTATIVE * Because of a physical, mental or emotional condition, does this person have difficulty doing errands alone such as visiting a doctor's office or shopping? Answer Date of Assessment Author No 01/23/2019 9:05 AM EDT Nitin Yousif CONTACT CENTER REPRESENTATIVE documented as of this encounter Mental Status * Because of a physical, mental or emotional condition, does this person have serious difficulty concentrating, remembering or making decisions? Answer Entry Date Author No 01/23/2019 9:05 AM RINAT Nitin Yousif CONTACT CENTER REPRESENTATIVE documented in this encounter Progress Notes * Yenni Guaman PharmD - 09/03/2019 2:15 PM EST Pharmacy Consult 09/03/2019 with Yenni Guaman, LeonorD: Alyssa Jamil was contacted by pharmacist for medication adherence counseling. Pharmacist spoke to patient telephonically. Subjective: Medication: Atorvastatin Days missed: ~28 Upon questioning, patient's is unsure if pt has missed any medication. He states he managesmedications for his , but cannot recall if pt has missed any or if there have been a week or two in which pt did not receive/take medication (atorvastatin) Pt's is concerned over pt's worsening chest congestion and would like her to see Dr. Shirley.He also states pt injured her foot and is worried about it not healing properly Barriers to medication adherence: forgetfulness. Objective: Lab Results Component Value Date CHOLESTEROL 154 02/11/2019 CHOLESTEROL 196 08/20/2018 CHOLESTEROL 199 05/27/2018 Lab Results Component Value Date HDL 51 02/11/2019 HDL 56 08/20/2018 HDL 61 05/27/2018 Lab Results Component Value Date LDLCALC 78 02/11/2019 LDLCALC 104 (H) 08/20/2018 LDLCALC 112 (H) 05/27/2018 Lab Results Component Value Date TRIG 124 02/11/2019 TRIG 182 (H) 08/20/2018 TRIG 131 05/27/2018 No results found for: CHOLHDL Assessment 1. Chest congestion/foot pain Appointment set up with PCP, Dr. Shirley next week. 2. Medication Adherence-Third green party payor data indicates pt may not be fully adherent with atorvastin. -Reviewed purpose and importance of medication -Discussed strategies to prevent missed doses of medication -Encouraged continued adherence to medication regimen as prescribed. Notify clinic if concerns withtaking medication Thank you for allowing me to participate in the care of this patient. Yenni Guaman PharmD [facility] [place] Rfid Analyst Pharmacist * Yenni Guaman PharmD - 09/03/2019 1:53 PM EST Call to patient for medication adherence outreach Third green party payor data indicates pt may not be fully adherent with atorvastatin therapy. Unable to reach patient. VM full. Pharmacist will attempt at later time Yenni Guaman PharmD [facility] [place] Rfid Analyst Pharmacist, [facility] documented in this encounter Plan of Treatment Upcoming Encounters Date Type Department Care Team (Late st Contact Info) Description 07/29/2024 9:00 AM EST Appointment [facility] [address] [place] [address] Jomar Kim MD [address] [place] [address] documented as of this encounter Goals Goal Patient Goal Type Associated Problems Recent Progress Patient-Stated? Author Blood Pressure < 140/90 Blood Pressure 110/72(04/27 2:44 PM EDT) No Rachel Rogers RMA BMI (Calculated) < 30 General 50.9( 024 2:44 PM EDT) No Rachel Rogers RMA Eat better, exercise, reach an ideal body weight General No Ni Clinton, medicaid nurse Healing General On track(2018 9:18 AM EDT) [...] weekly. ?? Refer to PCP and/or Java Programming Professor, Vascular Specialist as indicated. ?? Monitor patient compliance with wound care, diabetes management and proper offloading. Stay Tobacco Free Lifestyle On track(2020 10:23 AM EDT) No Wendy Espinoza LPN HEMOGLOBIN A1C < 7.0 Result Component 5.6(11/09/19 24 3:04 PM EST) No Rachel Rogers RMA documented as of this encounter Visit Diagnoses Not on filedocumented in this encounter Care Teams Assistant Director Of Public Works Relationship Specialty Start Date End Date Cristiane Shirley MD [address] [place] [address] PCP - General Family Medicine 08/20/18 12/29/23 Garett Holt MD Internal Medicine-Gastroenterology 12/22/12 Ruiz Stokes MD [address] [place] [id number] Internal Medicine-Cardiovascular Disease 07/25/14 Yenny Schwab MD [address] [facility] Building [address] [place] [id number] Internal Medicine-Rheumatology 12/11/16 documented as of this encounter
--- OUTSIDE RECORDS SUMMARY | 2024-07-22 16:09 | XMS_ITS | Encounter Summary ---
Author Organization [place] [address] Care Team Providers Care Electrical Instrument Maker Name Role Phone Garett Holt MD Unavailable [phone] Ruiz Stokes MD Unavailable [phone] Yenny Schwab MD Unavailable [phone] Cristiane Shirley MD Primary Care Provider [phone] Reason for Visit * Reason Comments Congestion itchy eyes Cough Toe Pain rt, stubbd her toes Back Pain Diabetes Hypertension Hyperlipidemia Encounter Details Date Type Department Care Team (Late st Contact Info) Description 09/14/2019 10:30 AM EST Office Visit [facility] [address] [place] [address] Cristiane Shirley MD [address] [place] [address] Right foot pain (Primary Dx); PMR (polymyalgia rheumatica) ([facility]); Atherosclerosis of aorta (HCC); Body mass index (BMI) 50.0-59.9, adult (HCC); Type 2 diabetes mellitus without complication, without long-term current use of insulin (HCC); High cholesterol; Essential hypertension; Acute bacterial sinusitis; Myalgia; ETD (Eustachian tube dysfunction), right; Lower extremity edema; Chronic idiopathic constipation; Seasonal allergic rhinitis due to pollen; Type 2 diabetes mellitus without complication, without long-term current use of insulin (HCC); Morbid obesity (HCC) Social History Tobacco Use Types Packs/Day [...] Sign Reading Time Taken Comments Blood Pressure 126/84 09/14/2019 10:06 AM EST Pulse - - Temperature 36.6 ??C (97.9 ??F) 09/14/2019 10:[address] Respiratory Rate - - Oxygen Saturation - - Inhaled Oxygen Concentration - - Weight 129.3 kg (285 lb) 09/14/2019 10:06 AM EST Height 157.5 cm (5' 2 ) 09/14/2019 10:06 AM EST Body Mass Index 52.13 09/14/2019 10:06 AM EST documented in this encounter Functional [...] Author No 09/14/2019 10:05 AM EST Brynn Moragn RMA * Because of a physical, mental or emotional condition, does this person have difficulty doing errands alone such as visiting a doctor's office or shopping? Answer Date of Assessment Author No 09/14/2019 10:05 AM DARLINE Morgan Brynn MULU Mckinney documented as of this encounter Mental Status * Because of a physical, mental or emotional condition, does this person have serious difficulty concentrating, remembering or making decisions? Answer Entry Date Author No 01/23/2019 9:05 AM Nitin Rider, FIELD SERVICE SPECIALIST documented in this encounter Ordered Prescriptions Prescription Sig Dispense Quantity Refills Last Filled Start Date End Date cholecalciferol, vitamin D3, (VITAMIN D3) 25 mcg (1,000 unit) Oral Tablet Take 1 Tab by mouth daily. 30 Tab 11 09/14/2019 oxybutynin (DITROPAN-XL) 10 mg Oral Tablet Extended Rel 24 hr Take 1 Tab by mouth 2 times daily. 60 Tab 2 09/14/2019 0 omeprazole (PRILOSEC) 20 mg Oral Capsule, Delayed Release(E.C.) Take 1 Cap by mouth daily. 90 Cap 2 09/14/2019 0 naproxen sodium (ANAPROX) 220 mg Oral Tablet Take 1 Tab by mouth 2 times daily (with meals). 30 Tab 5 09/14/2019 0 metFORMIN (GLUCOPHAGE) 500 mg Oral Tablet Take 1 Tab by mouth daily (with breakfast). 63 Tab 2 09/14/2019 0 loratadine (CLARITIN) 10 mg Oral TabletIndications :Seasonal allergic rhinitis due to pollen Take 1 Tab by mouth daily. 63 Tab 2 09/14/2019 1 lisinopril (PRINIVIL;ZESTRIL ) 20 mg Oral Tablet tabletIndications :Essential hypertension Take 1 Tab by mouth daily. 63 Tab 2 09/14/2019 0 linaCLOtide (LINZESS) 145 mcg Oral CapsuleIndication s:Chronic idiopathic constipation Take 1 Cap by mouth before breakfast. 30 Cap 6 09/14/2019 0 fUROsemide (LASIX) 40 mg Oral TabletIndications :Lower extremity edema Take 1 Tab by mouth daily as needed. 30 Tab 6 09/14/2019 0 fluticasone propionate (FLONASE) 50 mcg/actuation Nasl [place], SuspensionIndicat ions:ETD (Eustachian tube dysfunction), right INSTILL 1 SPRAY IN EACH NOSTRIL EVERY DAY 16 g 6 09/14/2019 0 docusate sodium (COLACE) 100 mg Oral Capsule Take 1 Cap by mouth 2 times daily. 60 Cap 09/14/2019 1 celecoxib (CELEBREX) 200 mg Oral CapsuleIndication s:Myalgia Take 1 Cap by mouth daily. 30 Cap 5 09/14/2019 0 atorvastatin (LIPITOR) 20 mg Oral Tablet TAKE 1 TABLET BY MOUTH EVERY DAY 90 Tab 1 09/14/2019 0 amLODIPine (NORVASC) 10 mg Oral TabletIndications :Essential hypertension Take 1 Tab by mouth daily. 63 Tab 2 09/14/2019 0 aspirin (ASPIRIN LOW DOSE) 81 mg Oral Tablet, Delayed Release (E.C.) Take 1 Tab by mouth daily. 30 Tab 5 09/14/2019 1 albuterol (PROVENTIL) 2.5 mg /3 mL (0.083 %) Inhl Solution for Nebulization Take 3 mL by nebulization every 4 hours as needed for Wheezing. 1 box 6 09/14/2019 0 doxycycline hyclate (VIBRA-TABS) 100 mg Oral Tablet Take 1 Tab by mouth 2 times daily for 10 days. 20 Tab 09/14/2019 0 documented in this encounter Progress Notes * Cristiane Shirley MD - 09/14/2019 10:30 AM EST Vitals: 09/14/19 1006 BP: 126/84 Temp: 97.9 ??F (36.6 ??C) TempSrc: Tympanic Weight: 285 lb (129.3 kg) Height: 5' 2 (1.575 m) SUBJECTIVE: Chief Complaint Patient presents with ??? Congestion itchy eyes ??? Cough ??? Toe Pain rt, stubbd her toes ??? Back Pain ??? Diabetes ??? Hypertension ??? Hyperlipidemia HPI: Congestion This is a new problem. The current episode started in the past 7 days. The problem has been unchanged. The problem occurs constantly. The cough is productive of sputum. Pertinent negatives include nofever. Cough This is a new problem. The current episode started in the past 7 days. The problem has been unchanged. The problem occurs constantly. The cough is productive of sputum. Pertinent negatives include nofever. Toe Injury The pain is present in the right foot and right toes. This is a recurrent problem. The current episode started more than 1 month ago. The problem occurs constantly. The problem has been unchanged. Pertinent negatives include no fever. Back Pain This is a recurrent problem. The current episode started 1 to 4 weeks ago. The problem occurs constantly. The problem has been unchanged. Associated symptoms include arthralgias, coughing, fatigue and joint swelling. Pertinent negatives include no abdominal pain, fever or nausea. Pt is here today for cough and congestion that has been present for about 3 weeks, recurrent toe pain that happened when she stubbed her toes about a month ago and recurrent back pain Diabetes: Home reporting of sugars was reviewed [...] patient. Review of Systems Constitutional: Positive for fatigue and unexpected weight change. Negative for fever. HENT: Negative. Eyes: Negative. Respiratory: Positive for cough. Gastrointestinal: Negative for abdominal pain, diarrhea and nausea. Genitourinary: Negative. Musculoskeletal: Positive for arthralgias, back pain, gait problem and joint swelling. Hematological: Negative. Psychiatric/Behavioral: Negative. OBJECTIVE: Physical Exam Vitals signs and nursing note reviewed. Constitutional: Appearance: She is obese. HENT: Head: Normocephalic. Mouth/Throat: Mouth: Mucous membranes are moist. Cardiovascular: Rate and Rhythm: Normal rate. Heart sounds: No murmur. Pulmonary: Effort: Pulmonary effort is normal. Breath sounds: No wheezing. Abdominal: Palpations: Abdomen is soft. Tenderness: There is no tenderness. Musculoskeletal: General: Swelling and tenderness present. Skin: General: Skin is warm. Neurological: General: No focal deficit present. Mental Status: She is alert. Psychiatric: Mood and Affect: Mood normal. Assessment Diagnoses and all orders for this visit: Right foot pain - XR FOOT RIGHT AP LATERAL AND OBLIQUE; Future PMR (polymyalgia rheumatica) ([facility]) (Chronic) stable Atherosclerosis of aorta ([facility]) (Chronic) stable Body mass index (BMI) 50.0-59.9, adult ([facility]) (Chronic) Continue diet changes Type 2 diabetes mellitus without complication, without long-term current use of insulin ([facility]) (Chronic) - stable High cholesterol Essential hypertension - amLODIPine (NORVASC) 10 mg Oral Tablet; Take 1 Tab by mouth daily. Dispense: 63 Tab; Refill: 2 - lisinopril (PRINIVIL;ZESTRIL) 20 mg Oral Tablet tablet; Take 1 Tab by mouth daily. Dispense: 63 Tab; Refill: 2 Acute bacterial sinusitis - methylPREDNISolone acetate (DEPO-Medrol) injection 80 mg Myalgia - celecoxib (CELEBREX) 200 mg Oral Capsule; Take 1 Cap by mouth daily. Dispense: 30 Cap; Refill: 5 ETD (Eustachian tube dysfunction), right - fluticasone propionate (FLONASE) 50 mcg/actuation Nasl [place], Suspension; INSTILL 1 SPRAY IN EACHNOSTRIL EVERY DAY Dispense: 16 g; Refill: 6 Lower extremity edema - fUROsemide (LASIX) 40 mg Oral Tablet; Take 1 Tab by mouth daily as needed. Dispense: 30 Tab; Refill: 6 Chronic idiopathic constipation - linaCLOtide (LINZESS) 145 mcg Oral Capsule; Take 1 Cap by mouth before breakfast. Dispense: 30 Cap; Refill: 6 Seasonal allergic rhinitis due to pollen - loratadine (CLARITIN) 10 mg Oral Tablet; Take 1 Tab by mouth daily. Dispense: 63 Tab; Refill: 2 Type 2 diabetes mellitus without complication, without long-term current use of insulin ([facility]) (Chronic) - stable Morbid obesity (HCC) (Chronic) - naproxen sodium (ANAPROX) 220 mg Oral Tablet; Take 1 Tab by mouth 2 times daily (with meals). Dispense: 30 Tab; Refill: 5 Continue diet changes Other orders - doxycycline hyclate (VIBRA-TABS) 100 mg Oral Tablet; Take 1 Tab by mouth 2 times daily for 10 days. Dispense: 20 Tab; Refill: 0 - albuterol (PROVENTIL) 2.5 mg /3 mL (0.083 %) Inhl Solution for Nebulization; Take 3 mL by nebulization every 4 hours as needed for Wheezing. Dispense: 1 box; Refill: 6 - aspirin (ASPIRIN LOW DOSE) 81 mg Oral Tablet, Delayed Release (E.C.); Take 1 Tab by mouth daily. Dispense: 30 Tab; Refill: 5 - atorvastatin (LIPITOR) 20 mg Oral Tablet; TAKE 1 TABLET BY MOUTH EVERY DAY Dispense: 90 Tab; Refill: 1 - cholecalciferol, vitamin D3, (VITAMIN D3) 25 mcg (1,000 unit) Oral Tablet; Take 1 Tab by mouth daily. Dispense: 30 Tab; Refill: 11 - docusate sodium (COLACE) 100 mg Oral Capsule; Take 1 Cap by mouth 2 times daily. Dispense: 60 Cap; Refill: 0 - metFORMIN (GLUCOPHAGE) 500 mg Oral Tablet; Take 1 Tab by mouth daily (with breakfast). Dispense: 63 Tab; Refill: 2 - omeprazole (PRILOSEC) 20 mg Oral Capsule, Delayed Release(E.C.); Take 1 Cap by mouth daily. Dispense: 90 Cap; Refill: 2 - oxybutynin (DITROPAN-XL) 10 mg Oral Tablet Extended Rel 24 hr; Take 1 Tab by mouth 2 times daily.Dispense: 60 Tab; Refill: 2 due for fasting labs soon. Declines today Declines mammo and pap Above problems were discussed with patient and [...] given on the AVS for today's visit. A new medicine was prescribed during this office visit. I educated patient about the reason for prescribing this new medication. I educated them of possible side effects, but also encouraged them to read the medication insert that will accompany their prescription and encouraged them to discuss anyquestions about the insert with their pharmacist. I also instructed to call if they experienced anyside effects or possible allergic reaction after taking the medication. I discussed the risk of stopping the medication or deviating from prescribing instructions. Dosing instructions are present on the AVS. I inquired to see if there were any questions and answered them accordingly. patient verbalized full understanding of the new medication education given at today???s visit. documented in this encounter Plan of Treatment Upcoming Encounters Date Type Department Care Team (Late st Contact Info) Description 07/29/2024 9:00 AM EST Appointment [facility] [address] [facility]. [place], [place] [id number] Jomar Kim MD [address] [place] [address] documented as of this encounter Goals Goal Patient Goal Type Associated Problems Recent Progress Patient-Stated? Author Blood Pressure < 140/90 Blood Pressure 110/72(04/27 2:44 PM EDT) No Rachel Rogers RMA BMI (Calculated) < 30 General 50.9( 2:44 PM EDT) No Rachel Rogers RMA Eat better, exercise, reach an ideal body weight General No Ni Clinton, district wire chief Healing General On track(2018 9:18 AM EDT) [...] neuropathy weekly. ?? Refer to PCP and/or Office Machine Inspector, Vascular Specialist as indicated. ?? Monitor patient compliance with wound care, diabetes management and proper offloading. Stay Tobacco Free Lifestyle On track(2020 10:23 AM EDT) Wendy Moon LPN HEMOGLOBIN A1C < 7.0 Result Component 5.6(11/09/19 24 3:04 PM EST) No Rachel Rogers RMA documented as of this encounter Results * XR FOOT RIGHT AP LATERAL AND OBLIQUE (09/14/2019 12:12 PM EST) Anatomical Region Laterality Modality Foot Radiographic Faby ging 09/14/2019 12:1 2 PM EST Impressions 09/14/2019 12:28 PM EST 1. ??No acute bony abnormality of the foot. 2. ??Mild multifocal primary osteoarthritis, most pronounced at the IP and first MTP joints. - Narrative 09/14/2019 12:28 PM EST XR FOOT RIGHT AP LATERAL AND OBLIQUE, ??09/14/2019 12:12 PM CLINICAL HISTORY: ??M79.671-Pain in right [id number] COMPARISON: ??None PROCEDURE COMMENTS: Routine views per the ordered protocol. FINDINGS: There is no fracture or traumatic malalignment. 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 Procedure Note Carolina Lombardi MD - 09/14/2019 XR FOOT RIGHT AP LATERAL AND OBLIQUE, 09/14/2019 12:12 PM CLINICAL HISTORY: M79.671-Pain in right [id number] COMPARISON: None PROCEDURE COMMENTS: Routine views per the ordered protocol. FINDINGS: There is no fracture or traumatic malalignment. Mild osteoarthritic alterations are noted, most pronounced at the firstMTP and IP joints. IMPRESSION: 1. No acute bony abnormality of the foot. 2. Mild multifocal primary osteoarthritis, most pronounced at the IP andfirst MTP joints. - us Cristiane Shirley MD IMG DIAGNOSTIC IMAGING ORDERAB LES Final Result documented in this encounter Visit Diagnoses Diagnosis Right foot pain- Primary Pain in limb PMR (polymyalgia rheumatica) ([facility]) Polymyalgia rheumatica Atherosclerosis of aorta ([facility]) Atherosclerosis of aorta Body mass index (BMI) 50.0-59.9, adult Type 2 diabetes mellitus without complication, without long-term current use of insulin ([facility]) High cholesterol Pure hypercholesterolemia Essential hypertension Unspecified essential hypertension Acute bacterial sinusitis Acute sinusitis, unspecified Myalgia Mylagia and myositis, unspecified ETD (Eustachian tube dysfunction), right Lower extremity edema Edema Chronic idiopathic constipation Unspecified constipation Seasonal allergic rhinitis due to pollen Morbid obesity ([facility]) Morbid obesity Right foot pain Pain in limb documented in this encounter Administered Medications Inactive Administered Medications - up to 1 most recent administrations Medication Order MAR Action Action Date Dose Rate Site methylPREDNISolone acetate (DEPO-Medrol) injection 80 mg 80 mg, Intramuscular, ONCE, 1 dose, On Fri09/14/19 at 1030, Dx: 1. Acute bacterial sinusitisIndications:Ac kamila bacterial sinusitis Given 09/14/2019 10:31 AM EST 80 mg Left Upper Outer Quadrant documented in this encounter Discontinued Medications Medication Sig Discontinue Reason Start Date End Da te albuterol (PROVENTIL) 2.5 mg /3 mL (0.083 %) Inhl Solution for Nebulization Take 3 mL by nebulization every 4 hours as needed for Wheezing. Reorder 06/24/2019 09/14/2019 ASPIRIN LOW DOSE 81 mg Oral Tablet, Delayed Release (E.C.) TAKE 1 TABLET BY MOUTH DAILY Reorder 07/13/2018 09/14/2019 amLODIPine (NORVASC) 10 mg Oral TabletIndications:Esse ntial hypertension TAKE 1 TAB BY MOUTH DAILY. Reorder 07/22/2019 09/14/2019 atorvastatin (LIPITOR) 20 mg Oral Tablet TAKE 1 TABLET BY MOUTH EVERY DAY Reorder 05/13/2019 09/14/2019 celecoxib (CELEBREX) 200 mg Oral CapsuleIndications:Franci lgia TAKE 1 CAPSULE BY MOUTH ONCE DAILY Reorder 04/29/2018 09/14/2019 cholecalciferol, vitamin D3, (VITAMIN D3) 1,000 unit Oral Tablet TAKE 1 TAB BY MOUTH DAILY. Reorder 05/07/2019 09/14/2019 docusate sodium (COLACE) 100 mg Oral Capsule TAKE 1 CAPSULE BY MOUTH TWICE DAILY Reorder 03/24/2018 09/14/2019 fluticasone propionate (FLONASE) 50 mcg/actuation Nasl [place], SuspensionIndications: ETD (Eustachian tube dysfunction), right INSTILL 1 SPRAY IN EACH NOSTRIL EVERY DAY Reorder 03/18/2019 09/14/2019 fUROsemide (LASIX) 40 mg Oral TabletIndications:Lowe r extremity edema Take 1 Tab by mouth daily as needed. Reorder 06/24/2019 09/14/2019 linaclotide (LINZESS) 145 mcg Oral CapsuleIndications:Chr onic idiopathic constipation Take 1 Cap by mouth before breakfast. Reorder 09/02/2018 09/14/2019 lisinopril (PRINIVIL;ZESTRIL) 20 mg Oral Tablet tabletIndications:Esse ntial hypertension TAKE 1 TAB BY MOUTH DAILY. Reorder 07/22/2019 09/14/2019 loratadine (CLARITIN) 10 mg Oral TabletIndications:Seas onal allergic rhinitis due to pollen TAKE 1 TAB BY MOUTH DAILY. Reorder 07/22/2019 09/14/2019 metFORMIN (GLUCOPHAGE) 500 mg Oral Tablet TAKE 1 TAB BY MOUTH DAILY (WITH BREAKFAST). Reorder 07/22/2019 09/14/2019 naproxen sodium (ANAPROX) 220 mg Oral TabletIndications:Type 2 diabetes mellitus without complication, without long-term current use of insulin (HCC),Morbid obesity (HCC),Skin ulcer of left ankle with fat layer exposed (HCC) Take 220 mg by mouth 2 times daily (with meals). Reorder 09/14/2019 omeprazole (PRILOSEC) 20 mg Oral Capsule, Delayed Release(E.C.) TAKE 1 CAP BY MOUTH DAILY. Reorder 09/14/2019 09/14/2019 oxybutynin (DITROPAN-XL) 10 mg Oral Tablet Extended Rel 24 hr Take 1 Tab by mouth 2 times daily. Reorder 06/10/2019 09/14/2019 documented as of this encounter Orders Medications Ordered That Edwin ht Not Have Been Administered Count Last Ordered Date First Ordered Date methylPREDNISolone acetate ( DEPO-Medrol) injection 80 mg 1 09/14/2019 documented in this encounter Care Teams Electrical Instrument Maker Relationship Specialty Start Date End Date Cristiane Shirley MD [address] [place] [address] PCP - General Family Medicine 08/20/18 12/29/23 Garett Holt MD Internal Medicine-Gastroenterology 12/22/12 Ruiz Stokes MD [address] [place] [id number] Internal Medicine-Cardiovascular Disease 07/25/14 Yenny Schwab MD [address] [facility] Building [address] [place] [id number] Internal Medicine-Rheumatology 12/11/16 documented as of this encounter
--- OUTSIDE RECORDS SUMMARY | 2024-07-22 16:09 | XMS_ITS | Encounter Summary ---
Author Organization [place] [address] Care Team Providers Care Cloth Bleaching Range Back Tender Name Role Phone Garett Holt MD Unavailable [phone] Ruiz Stokes MD Unavailable [phone] Yenny Schwab MD Unavailable [phone] Cristiane Shirley MD Primary Care Provider Reason for Visit * Reason Onset Date Comments Central Order Completion Outreach 05/11/2019 schedule Encounter Details Date Type Department Care Team (Late st Contact Info) Description 05/11/2019 Telephone [facility] [address] [place], [place] [id number] Cristiane Shirley MD 100 [place] [address] Central Order Completion Outreach (schedule) Social History Tobacco Use Types Packs/Day Years [...] Nitin Rider CMA documented in this encounter Miscellaneous Notes * Telephone Encounter - Cheyenne Canales RN - 07/09/2019 10:11 AM EDT Patient Outreach: Central Order Completion Attempt Count: 3rd Care Gaps Addressed special education professional: Mammogram and Cervical Cancer Screening Outcome: No answer; order removed * Telephone Encounter - Fide Nguyen - 05/18/2019 8:53 AM EDT Patient has been identified as overdue for Mammogram and has open orders in the chart. Patient was contacted and outcome of call was: No answer, 2nd attempt * Telephone Encounter - Juju Downs - 05/11/2019 3:23 PM EDT Patient has been identified as overdue for mammogram and has open orders in the chart. Patient was contacted and outcome of call was: Screening declined, reason: doesn't have a ride available. Will call patient back in a week documented in this encounter Plan of Treatment Upcoming Encounters Date Type Department Care Team (Late st Contact Info) Description 07/29/2024 9:00 AM EST Appointment [facility] [address] [employer] [employer] [place], [place] [id number] Jomar Kim MD [address] [place] [address] documented as of this encounter Goals Goal Patient Goal Type Associated Problems Recent Progress Patient-Stated? Author Blood Pressure < 140/90 Blood Pressure 110/72(04/27 2:44 PM EDT) No Rachel Rogers RMA BMI (Calculated) < 30 General 50.9( 2:44 PM EDT) No Rachel Rogers RMA Eat better, exercise, reach an ideal body weight General No Ni Clinton, yard supervisor cotton gin Healing General On track(2018 9:18 AM EDT) [...] neuropathy weekly. ?? Refer to PCP and/or Weighmaster Lead, Vascular Specialist as indicated. ?? Monitor patient compliance with wound care, diabetes management and proper offloading. Stay Tobacco Free Lifestyle On track(2020 10:23 AM EDT) No Wendy Espinoza LPN HEMOGLOBIN A1C < 7.0 Result Component 5.6(11/09/19 3:04 PM EST) No Rachel Rogers RMA documented as of this encounter Visit Diagnoses Not on filedocumented in this encounter Care Teams Cloth Bleaching Range Back Tender Relationship Specialty Start Date End Date Cristiane Shirley MD [address] [place] [address] PCP - General Family Medicine 08/20/18 12/29/23 Garett Holt MD Internal Medicine-Gastroenterology 12/22/12 Ruiz Stokes MD [address] [place] [address] Internal Medicine-Cardiovascular Disease 07/25/14 Yenny Schwab MD [address] [address] Internal Medicine-Rheumatology 12/11/16 documented as of this encounter
--- OUTSIDE RECORDS SUMMARY | 2024-07-22 16:09 | XMS_ITS | Encounter Summary ---
Author Organization [place] [address] Care Team Providers Care Lodging Manager Name Role Phone Garett Holt MD Unavailable [phone] Ruiz Stokes MD Unavailable [phone] Yenny Schwab MD Unavailable [phone] Cristiane Shirley MD Primary Care Provider [phone] Reason for Visit * Reason Comments Medication Refill Encounter Details Date Type Department Care Team (Late st Contact Info) Description 07/22/[address] [facility] [address] [place] [address] Cristiane Shirley MD [address] [place] [address] Medication Refill Social History Tobacco Use Types [...] Refills Last Filled Start Date End Date amLODIPine (NORVASC) 10 mg Oral TabletIndications:E ssential hypertension TAKE 1 TAB BY MOUTH DAILY. 63 Tab 2 07/22/2019 09/14/2019 lisinopril (PRINIVIL;ZESTRIL) 20 mg Oral Tablet tabletIndications:E ssential hypertension TAKE 1 TAB BY MOUTH DAILY. 63 Tab 2 07/22/2019 09/14/2019 metFORMIN (GLUCOPHAGE) 500 mg Oral Tablet TAKE 1 TAB BY MOUTH DAILY (WITH BREAKFAST). 63 Tab 2 07/22/2019 09/14/2019 loratadine (CLARITIN) 10 mg Oral TabletIndications:S easonal allergic rhinitis due to pollen TAKE 1 TAB BY MOUTH DAILY. 63 Tab 2 07/22/2019 09/14/2019 omeprazole (PRILOSEC) 20 mg Oral Capsule, Delayed Release(E.C.) TAKE 1 CAP BY MOUTH DAILY. 63 Cap 07/22/2019 09/14/2019 documented in this encounter Plan of Treatment Upcoming Encounters Date Type Department Care Team (Late st Contact Info) Description 07/29/2024 9:00 AM EST Appointment [facility] [address] [place] [phone] Jomar Kim MD [address] [place] [id number] documented as of this encounter Goals Goal [...] neuropathy weekly. ?? Refer to PCP and/or Chopper Operator, Vascular Specialist as indicated. ?? Monitor patient compliance with wound care, diabetes management and proper offloading. Stay Tobacco Free Lifestyle On track(2020 10:23 AM EDT) Wendy Moon LPN HEMOGLOBIN A1C < 7.0 Result Component 5.6(11/09/19 3:04 PM EST) Rachel Regan RMA documented as of this encounter Visit Diagnoses Diagnosis Seasonal allergic rhinitis due to pollen Essential hypertension Unspecified essential hypertension documented in this encounter Discontinued Medications Medication Sig Discontinue Reason Start Date End Da te loratadine (CLARITIN) 10 mg Oral TabletIndications:Seasonal allergic rhinitis due to pollen Take 1 Tab by mouth daily. Reorder 01/06/2019 07/22/2019 metFORMIN (GLUCOPHAGE) 500 mg Oral Tablet Take 1 Tab by mouth daily (with breakfast). Reorder 01/06/2019 07/22/2019 lisinopril (PRINIVIL;ZESTRIL) 20 mg Oral Tablet tabletIndications:Essentia l hypertension Take 1 Tab by mouth daily. Reorder 01/06/2019 07/22/2019 amLODIPine (NORVASC) 10 mg Oral TabletIndications:Essentia l hypertension Take 1 Tab by mouth daily. Reorder 01/06/2019 07/22/2019 documented as of this encounter Care Teams Lodging Manager Relationship Specialty Start Date End Date Cristiane Shirley MD [address] [place] [address] PCP - General Family Medicine 08/20/18 12/29/23 Garett Holt MD Internal Medicine-Gastroenterology 12/22/12 Ruiz Stokes MD [address] [place] [address] Internal Medicine-Cardiovascular Disease 07/25/14 Yenny Schwab MD 651 [facility] Building [address] [place] [address] Internal Medicine-Rheumatology 12/11/16 documented as of this encounter
--- OUTSIDE RECORDS SUMMARY | 2024-07-22 16:09 | XMS_ITS | Encounter Summary ---
Author Organization [place] [address] Care Team Providers Care Fruit Harvester Name Role Phone Garett Holt MD Unavailable [phone] Ruiz Stokes MD Unavailable [phone] Yenny Schwab MD Unavailable [phone] Cristiane Shirley MD Primary Care Provider [phone] Encounter Details Date Type Department Care Team (Latest Contact Info) Description 09/14/2019 11:45 AM EST - 09/14/2019 11:59 PM EST Hospital Encounter GRT XRAY [address] [place] [address] Right foot pain Discharge Disposition: Home or Self Care [...] 10:05 AM DARLINE RollinsBrynn clark MULU * Is the person blind or [...] DAY. THIS REPLACES LINZESS. 126 Cap 09/13/2019 11/02/2019 aspirin (ASPIRIN LOW DOSE) 81 mg Oral Tablet, Delayed Release (E.C.) Take 1 Tab by mouth daily. 30 Tab 5 09/14/2019 10/24/2020 docusate sodium (COLACE) 100 mg Oral Capsule Take 1 Cap by mouth 2 times daily. 60 Cap 09/14/2019 10/11/2020 doxycycline hyclate (VIBRA-TABS) 100 mg Oral Tablet Take 1 Tab by mouth 2 times daily for 10 days. 20 Tab 09/14/2019 09/24/2019 fluticasone propionate (FLONASE) 50 mcg/actuation Nasl [place], SuspensionIndica tions:ETD (Eustachian tube dysfunction), right INSTILL 1 SPRAY IN EACH NOSTRIL EVERY DAY 16 g 6 09/14/2019 01/05/2020 naproxen sodium (ANAPROX) 220 mg Oral Tablet Take 1 Tab by mouth 2 times daily (with meals). 30 Tab 5 09/14/2019 04/28/2020 omeprazole (PRILOSEC) 20 mg Oral Capsule, Delayed Release(E.C.) Take 1 Cap by mouth daily. 90 Cap 2 09/14/2019 05/03/2020 documented as of this encounter Discharge Disposition Disposition Code Departure Means Destination Home or Self Care documented in this encounter Plan of Treatment Upcoming Encounters Date Type Department Care Team (Late st Contact Info) Description 07/29/2024 9:00 AM EST Appointment [facility] [address] [place] [address] Jomar Kim MD [address] [place] [address] documented as of this encounter Goals Goal Patient Goal Type Associated Problems Recent Progress Patient-Stated? Author Blood Pressure < 140/90 Blood Pressure 110/72(04/27 2:44 PM EDT) No Rachel Rogers RMA BMI (Calculated) < 30 General 50.9( 2:44 PM EDT) No Rachel Rogers RMA Eat better, exercise, reach an ideal body weight General No Ni Clinton, concrete puddler Healing General On track(2018 9:18 AM EDT) [...] neuropathy weekly. ?? Refer to PCP and/or Simulation Specialist, Vascular Specialist as indicated. ?? Monitor [...] FOOT RIGHT AP LATERAL AND OBLIQUE Routine 09/14/2019 12:12 PM EST Right foot pain documented in [...] 12:12 PM CLINICAL HISTORY: ??M79.671-Pain in right [id number] COMPARISON: ??None PROCEDURE COMMENTS: Routine views per the ordered protocol. FINDINGS: There is no fracture or traumatic malalignment. 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 Procedure Note Carolina Lombardi MD - 09/14/2019 XR FOOT RIGHT AP LATERAL AND OBLIQUE, 09/14/2019 12:12 PM CLINICAL HISTORY: M79.671-Pain in right [id number] COMPARISON: None PROCEDURE COMMENTS: Routine views per [...] Pain in limb documented in this encounter Care Teams Fruit Harvester Relationship Specialty Start Date End Date Cristiane Shirley MD 100 [place] [address] PCP - General Family Medicine 08/20/18 12/29/23 Garett Holt MD Internal Medicine-Gastroenterology 12/22/12 Ruiz Stokes MD [address] [place] [address] Internal Medicine-Cardiovascular Disease 07/25/14 Yenny Schwab MD 651 [facility] 19 [place] [address] Internal Medicine-Rheumatology 12/11/16 documented as of this encounter
--- OUTSIDE RECORDS SUMMARY | 2024-07-22 16:09 | XMS_ITS | Encounter Summary ---
Author Organization [place] [address] Care Team Providers Care Electronic System Engineer Name Role Phone Garett Holt MD Unavailable [phone] Ruiz Stokes MD Unavailable [phone] Yenny Schwab MD Unavailable [phone] Cristiane Shirley MD Primary Care Provider [phone] Reason for Visit * Reason Onset Date Comments Other 10/20/2019 mammo due Encounter Details Date Type Department Care Team (Late st Contact Info) Description 10/20/2019 Telephone [facility] 100 [place] [address] Enedelia Valerio MA Other (mammo due ) Social History Tobacco Use Types Packs/Day [...] 09/14/2019 10:05 AM EST MorganBrynn RMA * Is the person blind or does he/she have serious difficulty seeing even when wearing glasses? Answer Date of Assessment Author No 09/14/2019 10:05 AM EST MorganBrynn clark RMA * Does this person have serious difficulty walking or climbing stairs? Answer Date of Assessment Author No 09/14/2019 10:05 AM EST MorganBrynn clark RMA * Does this person have difficulty [...] encounter Miscellaneous Notes * Telephone Encounter - Enedelia Valerio MA - 10/20/2019 10:04 AM EST Left message for pt to RC. documented in this encounter Plan of Treatment Upcoming Encounters Date Type Department Care Team (Late st Contact Info) Description 07/29/2024 9:00 AM EST Appointment [facility] [address] [place] [address] Jomar Kim MD [address] [place], [...] body weight General No Ni Clinton, associate creative director Healing General On track(2018 9:18 AM [...] weekly. ?? Refer to PCP and/or Tool And Gauge Inspector, Vascular Specialist as indicated. ?? Monitor patient compliance with wound care, diabetes management and proper offloading. Stay Tobacco Free Lifestyle On track(2020 10:23 AM EDT) No Wendy Espinoza LPN HEMOGLOBIN A1C < 7.0 Result Component 5.6(11/09/19 24 3:04 PM EST) No Rachel Rogers RMA documented as of this encounter Visit Diagnoses Not on filedocumented in this encounter Care Teams Electronic System Engineer Relationship Specialty Start Date End Date Cristiane Shirley MD 100 [place] [address] PCP - General Family Medicine 08/20/18 12/29/23 Garett Holt MD Internal Medicine-Gastroenterology 12/22/12 Ruiz Stokes MD [address] [place] [address] Internal Medicine-Cardiovascular Disease 07/25/14 Yenny Schwab MD 651 [facility] Building [address] [place] [address] Internal Medicine-Rheumatology 12/11/16 documented as of this encounter
--- OUTSIDE RECORDS SUMMARY | 2024-07-22 16:09 | XMS_ITS | Encounter Summary ---
Author Organization [place] [address] Care Team Providers Care Ordnance Technician Name Role Phone Garett Holt MD Unavailable [phone] Ruiz Stokes MD Unavailable [phone] Yenny Schwab MD Unavailable [phone] Cristiane Shirley MD Primary Care Provider Reason for Visit * Reason Comments Medication Refill Encounter Details Date Type Department Care Team (Late st Contact Info) Description 11/02/2019 Refill [facility] 100 [place] [address] Doron Rojas, INSPECTOR CLIP ON SUNGLASSES 100 [place] [address] Medication Refill Social History Tobacco Use Types [...] A DAY. THIS REPLACES LINZESS. 126 Cap 11/02/2019 0 documented in this encounter Plan of Treatment Upcoming Encounters Date Type Department Care Team (Late st Contact Info) Description 07/29/2024 9:00 AM EST Appointment [facility] [address] [place] [address] Jomar Kim MD [address] [place] [address] documented as of this encounter Goals Goal Patient Goal Type Associated Problems Recent Progress Patient-Stated? Author Blood Pressure < 140/90 Blood Pressure 110/72(04/27 2:44 PM EDT) No Rachel Rogers RMA BMI (Calculated) < 30 General 50.9( 024 2:44 PM EDT) No Rachel Rogers RMA Eat better, exercise, reach an ideal body weight General No Ni Clinton, medical grade shoemaker Healing General On track(2018 9:18 AM EDT) [...] neuropathy weekly. ?? Refer to PCP and/or Silvering Department Supervisor, Vascular Specialist as indicated. ?? Monitor [...] MOUTH TWICE A DAY. THIS REPLACES LINZESS. 09/13/2019 11/02/2019 documented as of this encounter Care Teams Ordnance Technician Relationship Specialty Start Date End Date Cristiane Shirley MD [address] [place] [address] PCP - General Family Medicine 08/20/18 12/29/23 Garett Holt MD Internal Medicine-Gastroenterology 12/22/12 Ruiz Stokes MD [address] [place] [id number] Internal Medicine-Cardiovascular Disease 07/25/14 Yenny Schwab MD [address] [address] Internal Medicine-Rheumatology 12/11/16 documented as of this encounter
--- OUTSIDE RECORDS SUMMARY | 2024-07-22 16:09 | XMS_ITS | Encounter Summary ---
Author Organization [place] [address] Care Team Providers Care Director Of Graduate Medical Education Name Role Phone Garett Holt MD Unavailable [phone] Ruiz Stokes MD Unavailable [phone] Yenny Schwab MD Unavailable [phone] Cristiane Shirley MD Primary Care Provider Reason for Visit * Reason Comments Medication Refill Encounter Details Date Type Department Care Team (Late st Contact Info) Description 07/22/2019 Refill [facility] 100 [place] [address] Doron Rojas, INSTRUMENT ASSEMBLER 100 [place] [address] Medication Refill Social History Tobacco Use Types [...] A DAY. THIS REPLACES LINZESS. 126 Cap 07/22/2019 0 documented in this encounter Plan of Treatment Upcoming Encounters Date Type Department Care Team (Late st Contact Info) Description 07/29/2024 9:00 AM EST Appointment [facility] [address] [address] Jomar Kim MD [address] [place] [address] documented as of this encounter Goals Goal Patient Goal Type Associated Problems Recent Progress Patient-Stated? Author Blood Pressure < 140/90 Blood Pressure 110/72(04/27 2:44 PM EDT) No Rachel Rogers RMA BMI (Calculated) < 30 General 50.9( 024 2:44 PM EDT) No Rachel Rogers RMA Eat better, exercise, reach an ideal body weight General No Ni Clinton, poultry picker Healing General On track(2018 9:18 AM EDT) [...] neuropathy weekly. ?? Refer to PCP and/or Stockroom Supervisor, Vascular Specialist as indicated. ?? Monitor [...] TWICE A DAY. THIS REPLACES LINZESS. Reorder 05/07/2019 07/22/2019 documented as of this encounter Care Teams Director Of Graduate Medical Education Relationship Specialty Start Date End Date Cristiane Shirley MD 100 [place] [address] PCP - General Family Medicine 08/20/18 12/29/23 Garett Holt MD Internal Medicine-Gastroenterology 12/22/12 Ruiz Stokes MD 7[address] [place], [place] [id number] Internal Medicine-Cardiovascular Disease 07/25/14 Yenny Schwab MD 651 [facility] 19 [place] [address] Internal Medicine-Rheumatology 12/11/16 documented as of this encounter
--- OUTSIDE RECORDS SUMMARY | 2024-07-22 16:09 | XMS_ITS | Encounter Summary ---
Author Organization [place] [address] Care Team Providers Care Test Borer Helper Name Role Phone Garett Holt MD Unavailable [phone] Ruiz Stokes MD Unavailable [phone] Yenny Schwab MD Unavailable [phone] Cristiane Shirley MD Primary Care Provider Reason for Visit * Reason Comments Medication Refill Encounter Details Date Type Department Care Team (Late st Contact Info) Description 09/13/2019 Refill [facility] 100 [place] [address] Cristiane Shirley MD [address] [place] [address] Medication Refill Social History Tobacco Use Types [...] Release(E.C.) TAKE 1 CAP BY MOUTH DAILY. 90 Cap 2 09/14/2019 09/14/2019 documented in this encounter Miscellaneous Notes * Telephone Encounter - Lisbet Cesar CPhT - 09/14/2019 8:53 AM EST Medication Refill Protocol passed. Vivek Action: Patient given refills to noted follow-up date by provider or protocol if no follow-up date noted documented in this encounter Plan of Treatment Upcoming Encounters Date Type Department Care Team (Late st Contact Info) Description 07/29/2024 9:00 AM EST Appointment [facility] [address] [place] [id number] Jomar Kim MD [address] [place] [id number] documented as of this encounter Goals Goal Patient Goal Type Associated Problems Recent Progress Patient-Stated? Author Blood Pressure < 140/90 Blood Pressure 110/72(04/27 2:44 PM EDT) No Rachel Rogers RMA BMI (Calculated) < 30 General 50.9( 2:44 PM EDT) No Rachel Rogers RMA Eat better, exercise, reach an ideal body weight General No Ni Clinton, group leader semiconductor processing Healing General On track(2018 9:18 AM EDT) [...] neuropathy weekly. ?? Refer to PCP and/or Ticket Agent, Vascular Specialist as indicated. ?? Monitor patient [...] Release(E.C.) TAKE 1 CAP BY MOUTH DAILY. 07/22/2019 09/14/2019 documented as of this encounter Care Teams Test Borer Helper Relationship Specialty Start Date End Date Cristiane Shirley MD [address] [place], [place] [id number] PCP - General Family Medicine 08/20/18 12/29/23 Garett Holt MD Internal Medicine-Gastroenterology 12/22/12 Ruiz Stokes MD [address] [place] [address] Internal Medicine-Cardiovascular Disease 07/25/14 Yenny Schwab MD 651 [facility] 19 [place] [address] Internal Medicine-Rheumatology 12/11/16 documented as of this encounter
--- OUTSIDE RECORDS SUMMARY | 2024-07-22 16:09 | XMS_ITS | Encounter Summary ---
Author Organization [place] [address] Care Team Providers Care Mine Technician Name Role Phone Garett Holt MD Unavailable [phone] Ruiz Stokes MD Unavailable [phone] Yenny Schwab MD Unavailable [phone] Cristiane Shirley MD Primary Care Provider [phone] Reason for Visit * Reason Onset Date Comments Central Patient Navigator Outreach 09/09/2019 Encounter Details Date Type Department Care Team (Late st Contact Info) Description 09/09/2019 Patient Outreach [facility] [address] [place] [address] Cristiane Shirley MD [address] [place] [address] Central Patient Navigator Outreach Social History Tobacco [...] Progress Notes * Nunu Leroy RN - 10/15/2019 4:06 PM EST Patient Outreach: Care Gap Outreach Attempt Count: 2nd Care Gaps Addressed directional survey drafter: Mammogram, Cervical Cancer Screening and Colorectal Cancer Screening Outcome: No answer, Left message to return call at and Mychart message sent * Yessica Wood - 09/09/2019 2:58 PM EST Patient Outreach: Pre-Visit Questionnaires, Care Gap Outreach and Appointment Needed Attempt Count: 1st Care Gaps Addressed directional survey drafter: Annual Wellness Visit, Appointment, Medicare Questionnaire, Mammogram and Cervical Cancer Screening Outcome: Left message to return call at and AWV due on 01.24.2020 documented in this encounter Plan of Treatment Upcoming Encounters Date Type Department Care Team (Late st Contact Info) Description 07/29/2024 9:00 AM EST Appointment [facility] [address] [place] [id number] Jomar Kim MD 300 [place] [address] documented as of this encounter Goals Goal Patient Goal Type Associated Problems Recent Progress Patient-Stated? Author Blood Pressure < 140/90 Blood Pressure 110/72(04/27 2:44 PM EDT) No Rachel Rogers RMA BMI (Calculated) < 30 General 50.9( 024 2:44 PM EDT) No Rachel Rogers RMA Eat better, exercise, reach an ideal body weight General No Ni Clinton, relay tester helper Healing General On track(2018 9:18 AM EDT) [...] neuropathy weekly. ?? Refer to PCP and/or Business Support, Vascular Specialist as indicated. ?? Monitor patient compliance with wound care, diabetes management and proper offloading. Stay Tobacco Free Lifestyle On track(2020 10:23 AM EDT) Wendy Moon LPN HEMOGLOBIN A1C < 7.0 Result Component 5.6(11/09/19 3:04 PM EST) Rachel Regan RMA documented as of this encounter Visit Diagnoses Not on filedocumented in this encounter Care Teams Mine Technician Relationship Specialty Start Date End Date Cristiane Shirley MD 100 [place] [address] PCP - General Family Medicine 08/20/18 12/29/23 Garett Holt MD Internal Medicine-Gastroenterology 12/22/12 Ruiz Stokes MD [address] [place] [address] Internal Medicine-Cardiovascular Disease 07/25/14 Yenny Schwab MD [address] [address] Internal Medicine-Rheumatology 12/11/16 documented as of this encounter
--- OUTSIDE RECORDS SUMMARY | 2024-07-22 16:09 | XMS_ITS | Encounter Summary ---
Author Organization [place] [address] Care Team Providers Care Database Modeler Name Role Phone Garett Holt MD Unavailable [phone] Ruiz Stokes MD Unavailable [phone] Yenny Schwab MD Unavailable [phone] Cristiane Shirley MD Primary Care Provider [phone] Reason for Visit * Reason Comments Medication Refill Encounter Details Date Type Department Care Team (Late st Contact Info) Description 09/13/[address] [address] Annalise Oneill MD [address] [place] [address] Medication Refill Social History Tobacco Use Types [...] Refills Last Filled Start Date End Date ASPIRIN LOW DOSE 81 mg Oral Tablet, Delayed Release (E.C.) TAKE 1 TABLET BY MOUTH DAILY 90 Tab 3 09/14/2019 04/16/2020 documented in this encounter Plan of Treatment [...] ideal body weight General No Ni Clinton, geophysical data technician Healing General On track(2018 9:18 AM [...] neuropathy weekly. ?? Refer to PCP and/or Expense Analyst, Vascular Specialist as indicated. ?? Monitor patient compliance with wound care, diabetes management and proper offloading. Stay Tobacco Free Lifestyle On track(2020 10:23 AM EDT) No Wendy Espinoza LPN HEMOGLOBIN A1C < 7.0 Result Component 5.6(11/09/19 24 3:04 PM EST) No Rachel Rogers RMA documented as of this encounter Visit Diagnoses Not on filedocumented in this encounter Care Teams Database Modeler Relationship Specialty Start Date End Date Cristiane Shirley MD [address] [place] [address] PCP - General Family Medicine 08/20/18 12/29/23 Garett Holt MD Internal Medicine-Gastroenterology 12/22/12 Ruiz Stokes MD [address] [place] [address] Internal Medicine-Cardiovascular Disease 07/25/14 Yenny Schwab MD 651 [facility] Building [address] [place] [id number] Internal Medicine-Rheumatology 12/11/16 documented as of this encounter
--- OUTSIDE RECORDS SUMMARY | 2024-07-22 16:09 | XMS_ITS | Encounter Summary ---
Author Organization [place] [address] Care Team Providers Care Engineering Officer Name Role Phone Garett Holt MD Unavailable [phone] Ruiz Stokes MD Unavailable [phone] Yenny Schwab MD Unavailable [phone] Cristiane Shirley MD Primary Care Provider Reason for Visit * Reason Comments Medication Refill Encounter Details Date Type Department Care Team (Late st Contact Info) Description 09/13/2019 Refill [facility] [address] [place] [address] Doron Rojas, COPYWRITING INTERN [address] [place] [address] Medication Refill Social History Tobacco Use Types [...] THIS REPLACES LINZESS. 126 Cap 09/13/2019 0 documented in this encounter Plan of Treatment Upcoming Encounters Date Type Department Care Team (Late st Contact Info) Description 07/29/2024 9:00 AM EST Appointment [facility] [address] [place] [address] Jomar Kim MD [address] [place] [address] documented as of this encounter Goals Goal Patient Goal Type Associated Problems Recent Progress Patient-Stated? Author Blood Pressure < 140/90 Blood Pressure 110/72(04/27 2:44 PM EDT) No Rachel Rogers RMA BMI (Calculated) < 30 General 50.9( 024 2:44 PM EDT) No Rachel Rogers RMA Eat better, exercise, reach an ideal body weight General No Ni Clinton, transcription typist Healing General On track(2018 9:18 AM EDT) [...] neuropathy weekly. ?? Refer to PCP and/or Tubing Machine Tender, Vascular Specialist as indicated. ?? Monitor [...] MOUTH TWICE A DAY. THIS REPLACES LINZESS. 07/22/2019 09/13/2019 documented as of this encounter Care Teams Engineering Officer Relationship Specialty Start Date End Date Cristiane Shirley MD [address] [place] [address] PCP - General Family Medicine 08/20/18 12/29/23 Garett Holt MD Internal Medicine-Gastroenterology 12/22/12 Ruiz Stokes MD [address] [place] [address] Internal Medicine-Cardiovascular Disease 07/25/14 Yenny Schwab MD 651 [facility] [address] [place] [address] Internal Medicine-Rheumatology 12/11/16 documented as of this encounter
--- OUTSIDE RECORDS SUMMARY | 2024-07-22 16:09 | XMS_ITS | Encounter Summary ---
Author Organization [place] [address] Care Team Providers Care Histotechnologist Supervisor Name Role Phone Garett Holt MD Unavailable [phone] Ruiz Stokes MD Unavailable [phone] Yenny Schwab MD Unavailable [phone] Cristiane Shirley MD Primary Care Provider Reason for Visit * Reason Comments Pneumonia Edema Diabetes Gastroesophageal Reflux Encounter Details Date Type Department Care Team (Late st Contact Info) Description 06/24/2019 11:00 AM EDT Office Visit [facility] [address] [place] [address] Cristiane Shirley MD [address] [place] [address] Acute bacterial sinusitis (Primary Dx); Lower extremity edema; Type 2 diabetes mellitus without complication, without long-term current use of insulin (HCC); Gastroesophageal reflux disease with esophagitis Social History Tobacco Use Types Packs/Day Years [...] Sign Reading Time Taken Comments Blood Pressure 132/88 06/24/2019 11:33 AM EDT Pulse - - Temperature 36.7 ??C (98.1 ??F) 06/24/2019 11:33 AM E DT Respiratory Rate - - Oxygen Saturation - - Inhaled Oxygen Concentration - - Weight 132.9 kg (293 lb) 06/24/2019 11:33 AM EDT Height 157.5 cm (5' 2 ) 06/24/2019 11:33 AM EDT Body Mass Index 53.59 06/24/2019 11:33 AM EDT documented in this encounter Functional [...] Refills Last Filled Start Date End Date cefdinir (OMNICEF) 300 mg Oral CapsuleIndication s:Acute bacterial sinusitis Take 1 Cap by mouth 2 times daily for 10 days. 20 Cap 06/24/2019 9 omeprazole (PRILOSEC) 40 mg Oral Capsule, Delayed Release(E.C.)Cindy cations:Gastroeso phageal reflux disease with esophagitis Take 1 Cap by mouth every morning (before breakfast). 30 Cap 6 06/24/2019 0 fUROsemide (LASIX) 40 mg Oral TabletIndications :Lower extremity edema Take 1 Tab by mouth daily as needed. 30 Tab 6 06/24/2019 0 albuterol (PROVENTIL) 2.5 mg /3 mL (0.083 %) Inhl Solution for Nebulization Take 3 mL by nebulization every 4 hours as needed for Wheezing. 1 box 6 06/24/2019 0 documented in this encounter Progress Notes * Cristiane Shirley MD - 06/24/2019 11:00 AM EDT Vitals: 06/24/19 1133 BP: 132/88 Temp: 98.1 ??F (36.7 ??C) TempSrc: Tympanic Weight: 293 lb (132.9 kg) Height: 5' 2 (1.575 m) SUBJECTIVE: Chief Complaint Patient presents with ??? Pneumonia ??? Edema ??? Diabetes ??? Gastrophageal Reflux HPI: Pneumonia She complains of cough, shortness of breath and wheezing. This is a recurrent problem. The current episode started 1 to 4 weeks ago. The problem occurs constantly. The problem has been unchanged. Associated symptoms include rhinorrhea. Pertinent negatives include no fever. Pt is here today for a follow up for pneumonia and edema Diabetes: Home reporting of sugars was reviewed [...] patient. Review of Systems Constitutional: Negative for fatigue and fever. HENT: Positive for congestion and rhinorrhea. Respiratory: Positive for cough, shortness of breath and wheezing. Gastrointestinal: Negative for abdominal pain, constipation and diarrhea. Genitourinary: Negative. Musculoskeletal: Positive for gait problem. Psychiatric/Behavioral: Negative. OBJECTIVE: Physical Exam Vitals signs and nursing note reviewed. Constitutional: Appearance: She is obese. HENT: Head: Normocephalic. Cardiovascular: Rate and Rhythm: Normal rate. Heart sounds: No murmur. Pulmonary: Effort: Pulmonary effort is normal. Breath sounds: Wheezing and rhonchi present. Abdominal: Palpations: Abdomen is soft. Tenderness: There is no tenderness. Musculoskeletal: Comments: Uses walker Neurological: General: No focal deficit present. Mental Status: She is alert. Psychiatric: Mood and Affect: Mood normal. Assessment Diagnoses and all orders for this visit: Acute bacterial sinusitis - cefdinir (OMNICEF) 300 mg Oral Capsule; Take 1 Cap by mouth 2 times daily for 10 days. Dispense: 20 Cap; Refill: 0 Lower extremity edema - fUROsemide (LASIX) 40 mg Oral Tablet; Take 1 Tab by mouth daily as needed. Dispense: 30 Tab; Refill: 6 Type 2 diabetes mellitus without complication, without long-term current use of insulin (HCC) (Chronic) - POCT GLYCATED HEMOGLOBIN, TOTAL Gastroesophageal reflux disease with esophagitis - omeprazole (PRILOSEC) 40 mg Oral Capsule, Delayed Release(E.C.); Take 1 Cap by mouth every morning (before breakfast). Dispense: 30 Cap; Refill: 6 Other orders - albuterol (PROVENTIL) 2.5 mg /3 mL (0.083 %) Inhl Solution for Nebulization; Take 3 mL by nebulization every 4 hours as needed for Wheezing. Dispense: 1 box; Refill: 6 Above problems were discussed with [...] 9:00 AM EST Appointment [facility] [address] [place], [place] [id number] Jomar Kim MD [address] [place] [address] documented as of this encounter Goals Goal Patient Goal Type Associated Problems Recent Progress Patient-Stated? Author Blood Pressure < 140/90 Blood Pressure 110/72(04/27 2:44 PM EDT) No Rachel Rogers RMA BMI (Calculated) < 30 General 50.9( 2:44 PM EDT) No Rachel Rogers RMA Eat better, exercise, reach an ideal body weight General No Ni Clinton, slate roofer helper Healing General On track(2018 9:18 AM [...] neuropathy weekly. ?? Refer to PCP and/or Grounds Supervisor, Vascular Specialist as indicated. ?? Monitor patient compliance with wound care, diabetes management and proper offloading. Stay Tobacco Free Lifestyle On track(2020 10:23 AM EDT) Wendy Moon LPN HEMOGLOBIN A1C < 7.0 Result Component 5.6(11/09/19 3:04 PM EST) No Rachel Rogers RMA documented as of this encounter Procedures Procedure Name Priority Date/Time Associated Diagnosis Comments POCT GLYCATED HEMOGLOBIN, TOTAL Routine 06/24/2019 12:06 PM EDT Type 2 diabetes mellitus without complication, without long-term current use of insulin ([facility]) documented in this encounter Results * POCT GLYCATED HEMOGLOBIN, TOTAL (06/24/2019 12:06 PM EDT) Hemoglobin A1C 6.0 % SEP OFFICE Lot Number [id number] SEP OFFICE Expiration Date 02/16/21 SEP OFFICE SeriAl # SEP OFFICE 06/24/2019 12:0 6 PM EDT us Cristiane Shirley MD POINT OF CARE TEST ORDERABLES Final Result SEP OFFICE documented in this encounter Visit Diagnoses Diagnosis Acute bacterial sinusitis- Primary Acute sinusitis, unspecified Lower extremity edema Edema Type 2 diabetes mellitus without complication, without long-term current use of insulin ([facility]) Gastroesophageal reflux disease with esophagitis documented in this encounter Discontinued Medications Medication Sig Discontinue Reason Start Date End Da te azithromycin (ZITHROMAX) 250 mg Oral Tablet TAKE 2 TABLETS BY MOUTH ON DAY 1 AND THEN TAKE 1 TABLET BY MOUTH ONCE A DAY ON DAY 2 THROUGH DAY 5 DELETE- Entered in Error 06/07/2019 06/24/2019 predniSONE (DELTASONE) 50 mg Oral Tablet Take 50 mg by mouth daily. DELETE- Entered in Error 06/07/2019 06/24/2019 fUROsemide (LASIX) 20 mg Oral TabletIndications:Lowe r extremity edema Take 1 Tab by mouth daily as needed. 03/18/2019 06/24/2019 omeprazole (PRILOSEC) 20 mg Oral Capsule, Delayed Release(E.C.) TAKE 1 CAP BY MOUTH DAILY. 05/07/2019 06/24/2019 documented as of this encounter Care Teams Histotechnologist Supervisor Relationship Specialty Start Date End Date Cristiane Shirley MD [address] [place] [address] PCP - General Family Medicine 08/20/18 12/29/23 Garett Holt MD Internal Medicine-Gastroenterology 12/22/12 Ruiz Stokes MD [address] [place] [address] Internal Medicine-Cardiovascular Disease 07/25/14 Yenny Schwab MD 651 [facility] [address] [place] [address] Internal Medicine-Rheumatology 12/11/16 documented as of this encounter
--- OUTSIDE RECORDS SUMMARY | 2024-07-22 16:09 | XMS_ITS | Encounter Summary ---
Author Organization [place] [address] Care Team Providers Care Panel Beater Name Role Phone Garett Holt MD Unavailable [phone] Ruiz Stokes MD Unavailable [phone] Yenny Schwab MD Unavailable [phone] Cristiane Shirley MD Primary Care Provider Reason for Visit * Reason Comments Medication Refill Encounter Details Date Type Department Care Team (Late st Contact Info) Description 05/06/2019 Refill [facility] [address] [place] [address] Cristiane Shirley MD [address] [place] [address] Medication Refill Social History Tobacco Use Types [...] End Date cholecalciferol, vitamin D3, (VITAMIN D3) 1,000 unit Oral Tablet TAKE 1 TAB BY MOUTH DAILY. 30 Tab 11 05/07/2019 09/14/2019 omeprazole (PRILOSEC) 20 mg Oral Capsule, Delayed Release(E.C.) TAKE 1 CAP BY MOUTH DAILY. 30 Cap 05/07/2019 06/24/2019 atorvastatin (LIPITOR) 20 mg Oral Tablet TAKE 1 TABLET BY MOUTH ONCE DAILY 90 Tab 1 05/07/2019 05/12/2019 documented in this encounter Miscellaneous Notes * Telephone Encounter - Daphney Bauer RMA - 05/07/2019 9:09 AM EDT Last vit d blood work was 12/11/2016. Please advise * Telephone Encounter - Miranda Christina CPhT - 05/07/2019 8:44 AM EDT Vitamin D-Medication Refill Protocol not available for this medication. Routed to office staff. Prilosec-Medication Refill Protocol failed due to appointment. web manager Reason: Past follow-up date noted by protocol This diagnosis has not been coded in over 12 months. web manager Action: Patient given marielos 30 day supply of medication Routed to office staff for outreach. Atorvastatin-Medication Refill Protocol passed. web manager Action: Patient given refills to noted follow-up date by provider or protocol if no follow-up date noted documented in this encounter Plan of Treatment Upcoming Encounters Date Type Department Care Team (Late st Contact Info) Description 07/29/2024 9:00 AM EST Appointment [facility] [address] [place], [place] [id number] Jomar Kim MD [address] [place], [place] [...] body weight General No Ni Clinton, supervisor slitting and shipping Healing General On track(2018 9:18 AM EDT) [...] ?? Refer to PCP and/or Director Of Student Affairs, Vascular Specialist as indicated. ?? Monitor patient [...] 1 TABLET BY MOUTH ONCE DAILY Reorder 03/01/2019 05/06/2019 omeprazole (PRILOSEC) 20 mg Oral Capsule, Delayed Release(E.C.) TAKE 1 CAP BY MOUTH DAILY. Reorder 03/01/2019 05/06/2019 VITAMIN D3 1,000 unit Oral Tablet TAKE 1 TAB BY MOUTH DAILY. Reorder 03/01/2019 05/06/2019 documented as of this encounter Care Teams Panel Beater Relationship Specialty Start Date End Date Cristiane Shirley MD [address] [place] [address] PCP - General Family Medicine 08/20/18 12/29/23 Garett Holt MD Internal Medicine-Gastroenterology 12/22/12 Ruiz Stokes MD [address] [place] [address] Internal Medicine-Cardiovascular Disease 07/25/14 Yenny Schwab MD [address] [address] Internal Medicine-Rheumatology 12/11/16 documented as of this encounter
--- OUTSIDE RECORDS SUMMARY | 2024-07-22 16:09 | XMS_ITS | Encounter Summary ---
Author Organization [facility] [place] [address] Care Team Providers Care Rfid Strategist Name Role Phone Garett Holt MD Unavailable [phone] Ruiz Stokes MD Unavailable [phone] Yenny Schwab MD Unavailable [phone] Cristiane Shirley MD Primary Care Provider [phone] Encounter Details Date Type Department Care Team (Latest Contact Info) Description 10/13/2019 Travel Social History Tobacco Use Types Packs/Day [...] [facility] [facility] [place] [address] Jomar Kim MD [address] [place] [address] documented as of this encounter Goals Goal Patient Goal Type Associated Problems Recent Progress Patient-Stated? Author Blood Pressure < 140/90 Blood Pressure 110/72(04/27 2:44 PM EDT) No Rachel Rogers RMA BMI (Calculated) < 30 General 50.9( 2:44 PM EDT) No Rachel Rogers RMA Eat better, exercise, reach an ideal body weight General No Ni Clinton, data analytics chief scientist Healing General On track(2018 9:18 AM [...] neuropathy weekly. ?? Refer to PCP and/or Plumbing And Heating Mechanic, Vascular Specialist as indicated. ?? Monitor patient compliance with wound care, diabetes management and proper offloading. Stay Tobacco Free Lifestyle On track(2020 10:23 AM EDT) Wendy Moon LPN HEMOGLOBIN A1C < 7.0 Result Component 5.6(11/09/19 24 3:04 PM EST) No Rachel Rogers RMA documented as of this encounter Visit Diagnoses Not on filedocumented in this encounter Care Teams Rfid Strategist Relationship Specialty Start Date End Date Cristiane Shirley MD [address] [place] [id number] PCP - General Family Medicine 08/20/18 12/29/23 Garett Holt MD Internal Medicine-Gastroenterology 12/22/12 Ruiz Stokes MD [address] [place] [address] Internal Medicine-Cardiovascular Disease 07/25/14 Yenny Schwab MD 651 [facility] Building [address] [place] [address] Internal Medicine-Rheumatology 12/11/16 documented as of this encounter
--- OUTSIDE RECORDS SUMMARY | 2024-07-22 16:09 | XMS_ITS | Encounter Summary ---
Author Organization [place] [address] Care Team Providers Care Production Metal Sprayer Name Role Phone Garett Holt MD Unavailable [phone] Ruiz Stokes MD Unavailable [phone] Yenny Schwab MD Unavailable [phone] Cristiane Shirley MD Primary Care Provider [phone] Reason for Visit * Reason Comments Cough Congestion Shortness of Breath Shoulder Pain numbness Back Pain Abdominal Pain Encounter Details Date Type Department Care Team (Late st Contact Info) Description 10/13/2019 1:15 PM EST Office Visit [facility] [address] [place] [address] Cristiane Shirley MD [address] [place] [address] Acute bronchitis, unspecified organism (Primary Dx); Chronic right shoulder pain Social History Tobacco Use Types Packs/Day [...] Reading Time Taken Comments Blood Pressure 126/84 10/13/2019 1:17 PM EST Pulse - - Temperature 36.7 ??C (98 ??F) 10/13/2019 1:17 PM EST Respiratory Rate - - Oxygen Saturation - - Inhaled Oxygen Concentration - - Weight 129.3 kg (285 lb) 10/13/2019 1:17 PM EST Height 157.5 cm (5' 2 ) 10/13/2019 1:17 PM EST Body Mass Index 52.13 10/13/2019 1:17 PM EST documented in this encounter Functional [...] End Date predniSONE (DELTASONE) 20 mg Oral Tablet Take 2 Tabs by mouth daily for 5 days. 10 Tab 10/13/2019 10/18/2019 cefdinir (OMNICEF) 300 mg Oral CapsuleIndications: Acute bronchitis, unspecified organism Take 1 Cap by mouth 2 times daily for 10 days. 20 Cap 10/13/2019 10/23/2019 documented in this encounter Progress Notes * Cristiane Shirley MD - 10/13/2019 1:15 PM EST Vitals: 10/13/19 1317 BP: 126/84 Temp: 98 ??F (36.7 ??C) Weight: 285 lb (129.3 kg) Height: 5' 2 (1.575 m) SUBJECTIVE: Chief Complaint Patient presents with ??? Cough ??? Congestion ??? Shortness of Breath ??? Shoulder Pain numbness ??? Back Pain ??? Abdominal Pain HPI: Cough This is a new problem. The current episode started 1 to 4 weeks ago. The problem has been unchanged. The problem occurs constantly. The cough is non-productive. Associated symptoms include rhinorrheaand shortness of breath. Pertinent negatives include no fever or rash. Congestion This is a new problem. The current episode started 1 to 4 weeks ago. The problem has been unchanged. The problem occurs constantly. The cough is non-productive. Associated symptoms include rhinorrheaand shortness of breath. Pertinent negatives include no fever or rash. Shortness of Breath This is a new problem. The current episode started 1 to 4 weeks ago. The problem occurs constantly.The problem has been unchanged. Associated symptoms include rhinorrhea. Pertinent negatives includeno abdominal pain, fever or rash. Shoulder Pain This is a new problem. The current episode started 1 to 4 weeks ago. The problem occurs constantly.The problem has been unchanged. Pertinent negatives include no fever. Pt is here today for cough/congestion, SOB and shoulder pain that includes some numbness. Pt also complains of back and abdominal pain Review of Systems Constitutional: Negative for fatigue and fever. HENT: Positive for congestion, rhinorrhea, sinus pressure and sinus pain. Respiratory: Positive for cough and shortness of breath. Cardiovascular: Negative. Gastrointestinal: Negative for abdominal pain, diarrhea and nausea. Genitourinary: Negative. Musculoskeletal: Positive for arthralgias. Skin: Negative for rash. Neurological: Negative. Hematological: Negative. Psychiatric/Behavioral: Negative. OBJECTIVE: Physical Exam Vitals signs and nursing note reviewed. HENT: Head: Normocephalic. Comments: ttp bilateral maxillary sinus. Cobblestoning of oropharynx Right Ear: Tympanic membrane normal. Left Ear: [...] and all orders for this visit: Acute bronchitis, unspecified organism - cefdinir (OMNICEF) 300 mg Oral Capsule; Take 1 Cap by mouth 2 times daily for 10 days. Dispense: 20 Cap; Refill: 0 Chronic right shoulder pain Other orders - predniSONE (DELTASONE) 20 mg Oral Tablet; Take 2 Tabs by mouth daily for 5 days. Dispense: 10 Tab; Refill: 0 documented in this encounter Plan of Treatment Upcoming Encounters Date Type Department Care Team (Late st Contact Info) Description 07/29/2024 9:00 AM EST Appointment [facility] [address] [place], [place] [id number] Jomar Kim MD [address] [place] [address] documented as of this encounter Goals Goal Patient Goal Type Associated Problems Recent Progress Patient-Stated? Author Blood Pressure < 140/90 Blood Pressure 110/72(04/27 2:44 PM EDT) No Rachel Rogers RMA BMI (Calculated) < 30 General 50.9( 024 2:44 PM EDT) No Rachel Rogers RMA Eat better, exercise, reach an ideal body weight General No Ni Clinton, counter tender Healing General On track(2018 9:18 AM EDT) [...] neuropathy weekly. ?? Refer to PCP and/or Journeyman Press Operator, Vascular Specialist as indicated. ?? Monitor patient compliance with wound care, diabetes management and proper offloading. Stay Tobacco Free Lifestyle On track(2020 10:23 AM EDT) Wendy Moon LPN HEMOGLOBIN A1C < 7.0 Result Component 5.6(11/09/19 24 3:04 PM EST) Rachel Regan RMA documented as of this encounter Visit Diagnoses Diagnosis Acute bronchitis, unspecified organism- Primary Chronic right shoulder pain Pain in joint, shoulder region documented in this encounter Care Teams Production Metal Sprayer Relationship Specialty Start Date End Date Cristiane Shirley MD [address] [place] [id number] PCP - General Family Medicine 08/20/18 12/29/23 Garett Holt MD Internal Medicine-Gastroenterology 12/22/12 Ruiz Stokes MD [address] [place] [address] Internal Medicine-Cardiovascular Disease 07/25/14 Yenny Schwab MD [address] [place] [address] Internal Medicine-Rheumatology 12/11/16 documented as of this encounter
--- OUTSIDE RECORDS SUMMARY | 2024-07-22 16:10 | XMS_ITS | Encounter Summary ---
Author Organization [place] [address] Care Team Providers Care Head Of Marketing Adometry Name Role Phone Garett Holt MD Unavailable [phone] Ruiz Stokes MD Unavailable [phone] Yenny Schwab MD Unavailable [phone] Cristiane [place] MD Primary Care Provider [phone] Reason for Visit * Reason Comments Medication Refill Encounter Details Date Type Department Care Team (Late st Contact Info) Description 01/05/[address] [address] Doron Rojas, RN ER [address] [place], [place] [id number] Medication Refill Social History Tobacco Use Types Packs/Day Years Used Date Smoking Tobacco: Former Cigarettes 1.5 12 0 09/08/1973 - 09/08/1985 Smokeless Tobacco: Never Comments:quit 25 yrs ago Alcohol Use Standard Drinks/Week Comments No 0 (1 standard drink = 0.6 oz pur e alcohol) Sexually Active Control Partners Comments Yes Post-menopausal [...] hearing? Answer Date of Assessment Author No 01/06/2018 3:48 PM EDT Ni [place] RN * Is the person blind or does he/she have serious difficulty seeing even when wearing glasses? Answer Date of Assessment Author No 01/06/2018 3:48 PM EDT Ni [place] RN * Does this person have serious difficulty walking or climbing stairs? Answer Date of Assessment Author Yes 01/06/2018 3:48 PM EDT Ni [place] RN * Does this person have difficulty dressing or bathing? Answer Date of Assessment Author Yes 01/06/2018 3:48 PM EDT Ni [place] RN * Because of a physical, mental or emotional condition, does this person have difficulty doing errands alone such as visiting a doctor's office or shopping? Answer Date of Assessment Author Yes 01/06/2018 3:48 PM EDT Ni [place] RN documented as of this encounter Mental Status * Because of a physical, mental or emotional condition, does this person have serious difficulty concentrating, remembering or making decisions? Answer Entry Date Author Yes 01/06/2018 3:48 PM EDT Ni [place] RN documented in this encounter Plan of Treatment Upcoming Encounters Date Type Department Care Team (Late st Contact Info) Description 07/29/2024 9:00 AM EST Appointment [facility] [address] [facility] [place] [address] Jomar Kim MD [address] [place] [address] documented as of this encounter Goals Goal Patient Goal Type Associated Problems Recent Progress Patient-Stated? Author Blood Pressure < 140/90 Blood Pressure 110/72(04/27 2:44 PM EDT) No Rachel Rogers RMA BMI (Calculated) < 30 General 50.9( 2:44 PM EDT) No Rachel Rogers RMA Eat better, exercise, reach an ideal body weight General No Ni [place], salt maker Healing General On track(2018 9:18 AM EDT) [...] neuropathy weekly. ?? Refer to PCP and/or Project Structural Engineer, Vascular Specialist as indicated. ?? Monitor patient compliance with wound care, diabetes management and proper offloading. Stay Tobacco Free Lifestyle On track(2020 10:23 AM EDT) Wendy Moon LPN HEMOGLOBIN A1C < 7.0 Result Component 5.6(11/09/19 24 3:04 PM EST) No Rachel Rogers RMA documented as of this encounter Visit Diagnoses Diagnosis Essential hypertension Unspecified essential hypertension Type 2 diabetes mellitus without complication (HCC) Seasonal allergic rhinitis due to pollen documented in this encounter Care Teams Head Of Marketing Adometry Relationship Specialty Start Date End Date Cristiane [place] MD [address] [place] [address] PCP - General Family Medicine 08/20/18 12/29/23 Garett Holt MD Internal Medicine-Gastroenterology 12/22/12 Ruiz Stokes MD [address] [id number] Internal Medicine-Cardiovascular Disease 07/25/14 Yenny Schwab MD [address] [id number] Internal Medicine-Rheumatology 12/11/16 documented as of this encounter
--- OUTSIDE RECORDS SUMMARY | 2024-07-22 16:10 | XMS_ITS | Encounter Summary ---
Author [place] [address] Care Team Providers Care Electronic Publishing Specialist Name Role Phone Garett Holt MD Unavailable [phone] Ruiz Stokes MD Unavailable [phone] Yenny Schwab MD Unavailable [phone] Cristiane [place] MD Primary Care Provider Reason for Visit * Reason Comments Medication Refill Encounter Details Date Type Department Care Team (Late st Contact Info) Description 05/06/2019 Refill [facility] [address] [place] [address] Doron Rojas, STUDENT AFFAIRS DEAN [address] [place] [address] Medication Refill Social History Tobacco Use Types [...] A DAY. THIS REPLACES LINZESS. 126 Cap 05/07/2019 9 documented in this encounter Miscellaneous Notes * Telephone Encounter - Miranda Christina CPhT - 05/07/2019 8:44 AM EDT Medication Refill Protocol not available for this medication. Routed to office staff. documented in this encounter Plan of Treatment Upcoming Encounters Date Type Department Care Team (Late st Contact Info) Description 07/29/2024 9:00 AM EST Appointment [facility] [address] [place] [id number] Jomar Kim MD [address] [place] [address] documented as of this encounter Goals Goal Patient Goal Type Associated Problems Recent Progress Patient-Stated? 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 ?? Refer to PCP and/or Metal Bonder, Vascular Specialist as indicated. ?? Monitor patient compliance with wound care, diabetes management and proper offloading. Stay Tobacco Free Lifestyle On track(2020 10:23 AM EDT) No Wendy Espinoza LPN HEMOGLOBIN A1C < 7.0 Result Component 5.6(11/09/19 3:04 PM EST) Alex Regankathrin Peck, RMA documented as of this encounter Visit Diagnoses Not on filedocumented in this encounter Discontinued Medications Medication Sig Discontinue Reason Start Date End Da te AMITIZA 24 mcg Oral Capsule TAKE ONE CAPSULE BY MOUTH TWICE A DAY. THIS REPLACES LINZESS. Reorder 03/01/2019 05/06/2019 documented as of this encounter Care Teams Electronic Publishing Specialist Relationship Specialty Start Date End Date Cristiane [place] MD [address] [place] [address] PCP - General Family Medicine 08/20/18 12/29/23 Garett Holt MD Internal Medicine-Gastroenterology 12/22/12 Ruiz Stokes MD [address] [place] [id number] Internal Medicine-Cardiovascular Disease 07/25/14 Yenny Schwab MD [address] [id number] Internal Medicine-Rheumatology 12/11/16 documented as of this encounter
--- OUTSIDE RECORDS SUMMARY | 2024-07-22 16:10 | XMS_ITS | Encounter Summary ---
Author Organization [place] [address] Care Team Providers Care Membership Advisor Name Role Phone Garett Holt MD Unavailable [phone] Ruiz Stokes MD Unavailable [phone] Yenny Schwab MD Unavailable [phone] Cristiane Shirley MD Primary Care Provider [phone] Reason for Referral * (Routine) - Closed Specialty Diagnoses / Procedures Referred By Ron bansal Referred To Contact Diagnoses Diabetic ulcer of lower extremity (HCC) Venous insufficiency Type 2 diabetes mellitus without complication, without long-term current use of insulin (HCC) Skin ulcer of left ankle with fat layer exposed (HCC) Morbid obesity (HCC) Procedures [facility] PRIMARY DRESSING Luiza Peña APRN [address] [place] [address] Phone: tel: fax: Referral ID Status Reason Start Date Expiration Date Visits Re quested Visits Authorized [id number] Closed 11/19/2018 11/19/2019 1 1 * Vascular Imaging (Routine) - Closed Specialty Diagnoses / Procedures Referred By Contalissa t Referred To Contact Radiology Diagnoses Diabetic ulcer of lower extremity (HCC) Venous insufficiency Type 2 diabetes mellitus without complication, without long-term current use of insulin (HCC) Skin ulcer of left ankle with fat layer exposed (HCC) Morbid obesity (HCC) Procedures [facility] LOWER EXTREMITY ARTERIAL DUPLEX COMPLETE Luiza Peña APRN [address] [place] [address] Phone: tel: fax: Referral ID Status Reason Start Date Expiration Date Visits Re quested Visits Authorized [id number] Closed 11/19/2018 11/19/2020 1 1 * Vascular Imaging (Routine) - Closed Specialty Diagnoses / Procedures Referred By Ron bansal Referred To Contact Radiology Diagnoses Diabetic ulcer of lower extremity (HCC) Venous insufficiency Type 2 diabetes mellitus without complication, without long-term current use of insulin (HCC) Skin ulcer of left ankle with fat layer exposed (HCC) Morbid obesity (HCC) Procedures [facility] LOWER EXTREMITY ARTERIAL PHYSIOLOGICAL Luiza Peña APRN [address] [place] [address] Phone: tel: fax: Referral ID Status Reason Start Date Expiration Date Visits Re quested Visits Authorized [id number] Closed 11/19/2018 11/19/2020 1 1 Reason for Visit * Reason Comments Non-healing Wound * Consultation (Routine) - Closed Specialty Diagnoses / Procedures Referred By Ron bansal Referred To Contact Wound Care Diagnoses Wound of left lower extremity, initial encounter Cristiane Shirley MD Phone: tel: fax: [facility] [place] [address] [address] Phone: tel: fax: Referral ID Status Reason Start Date Expiration Date Visits Re quested Visits Authorized [id number] Closed 11/19/2018 01/18/2019 8 8 Encounter Details Date Type Department Care Team (Latest Contact Info) Description 11/19/2018 8:28 AM EDT - 11/19/2018 11:59 PM EDT Hospital Encounter [facility] [place] [address] [place] [address] Luiza Peña APRN [address] [place] [address] Type 2 diabetes mellitus without complication, without long-term current use of insulin (HCC) (Primary Dx); Diabetic ulcer of lower extremity (HCC); Venous insufficiency; Skin ulcer of left ankle with fat layer exposed (HCC); Morbid obesity (HCC) Discharge Disposition: Home or Self Care [...] Sign Reading Time Taken Comments Blood Pressure 131/60 11/19/2018 8:53 AM EDT Pulse 76 11/19/2018 8:53 AM EDT Temperature 36.7 ??C (98 ??F) 11/19/2018 8:53 AM EDT Respiratory Rate 18 11/19/2018 8:53 AM EDT Oxygen Saturation - - Inhaled Oxygen Concentration - - Weight 122.5 kg (270 lb) 11/19/2018 8:53 AM EDT Height 157.5 cm (5' 2 ) 11/19/2018 8:53 AM EDT Body Mass Index 49.38 11/19/2018 8:53 AM EDT documented in this encounter Functional Status * Is the person deaf or does he/she have serious difficulty hearing? Answer Date of Assessment Author No 01/06/2018 3:48 PM EDNi Mueller RN * Is the person blind or [...] Ni Clinton RN documented in this encounter Medications at Time of Discharge CALCIUM ORAL Take 1 Tab by mouth daily. documented as of this encounter Discharge Disposition Disposition Code Departure Means Destination Home or Self Care documented in this encounter Progress Notes * Vicky Lee RN - 11/19/2018 8:28 AM EDT Bed bug found on patient. Educated pt on bed bugs, hand out given. * Luiza Peña APRN - 11/19/2018 8:28 AM EDT Date of Visit: 11/19/2018 Referring Provider: Cristiane Shirley MD [address] [place] [id number] Presenting Chief Complaint/Reason for Consultation: Chief Complaint Patient presents with ??? Non-healing Wound HPI Alyssa Jamil is a 63 y.o. year old obese female patient who presents today for ulcer evaluation. Patient has a venous leg ulcer located on the left medial ankle for 8 weeks. She has noted her sock getting wet every day. She has not been treating the ulcer with any dressings. She has pain in the ankle and has seen her PCP, an x-ray was positive for degenerative joint changes and she is now takingcelebrex. She has had varicose veins for several years and has never worn any compression garments.She is diabetic and her last A1C level was 6.2. She does not smoke but does have a history. She hasno documented PVD. Medical History: Past Medical History: Diagnosis Date [...] CPAP OR BIPAP PER PATIENT ??? Ulcer Medications: Current Outpatient Prescriptions: ??? ASPIRIN LOW DOSE 81 mg Oral Tablet, Delayed Release (E.C.), TAKE 1 TABLET BY MOUTH DAILY, Disp:63 Tab, Rfl: 3 ??? atorvastatin (LIPITOR) 20 mg Oral Tablet, TAKE 1 TABLET BY MOUTH ONCE DAILY, Disp: 90 Tab, Rfl:0 ??? Blood-Glucose Meter [facility] Kit, Please fill with what her ins will cover, Disp: 1 Kit, Rfl: 0 ??? CALCIUM ORAL, Take by mouth daily., Disp: , Rfl: ??? celecoxib (CELEBREX) 200 mg Oral Capsule, TAKE 1 CAPSULE BY MOUTH ONCE DAILY, Disp: 30 Cap, Rfl: 0 ??? Cholecalciferol, Vitamin D3, 2,000 unit Oral Tablet, Take 1/2 daily, Disp: 32 Tab, Rfl: 2 ??? docusate sodium (COLACE) 100 mg Oral Capsule, TAKE 1 CAPSULE BY MOUTH TWICE DAILY, Disp: 60 Cap, Rfl: 0 ??? fluticasone (FLONASE) 50 mcg/actuation Nasl Carbon, Suspension, INSTILL 1 SPRAY IN EACH NOSTRIL EVERY DAY, Disp: 16 g, Rfl: 6 ??? fUROsemide (LASIX) 20 mg Oral Tablet, Take 1 Tab by mouth daily as needed., Disp: 30 Tab, Rfl: 2 ??? lisinopril (PRINIVIL;ZESTRIL) 20 mg Oral Tablet tablet, TAKE 1 TABLET BY MOUTH ONCE DAILY, Disp: 63 Tab, Rfl: 2 ??? metFORMIN (GLUCOPHAGE) 500 mg Oral Tablet, TAKE 1 TABLET BY MOUTH DAILY WITH BREAKFAST, Disp: 63 Tab, Rfl: 2 ??? oxybutynin (DITROPAN-XL) 10 mg Oral Tablet Extended Rel 24 hr, Take 1 Tab by mouth 2 times daily., Disp: 60 Tab, Rfl: 2 ??? VITAMIN D3 1,000 unit Oral Tablet, TAKE 1 TAB BY MOUTH DAILY., Disp: 63 Tab, Rfl: 0 ??? AMITIZA 24 mcg Oral Capsule, TAKE ONE CAPSULE BY MOUTH TWICE A DAY. THIS REPLACES LINZESS., Disp: 126 Cap, Rfl: 0 ??? amLODIPine (NORVASC) 10 mg Oral Tablet, TAKE 1 TABLET BY MOUTH DAILY, Disp: 63 Tab, Rfl: 2 ??? atorvastatin (LIPITOR) 20 mg Oral Tablet, TAKE 1 TABLET (20MG) BY MOUTH ONCE DAILY, Disp: 30 Tab, Rfl: 2 ??? linaclotide (LINZESS) 145 mcg Oral Capsule, Take 1 Cap by mouth before breakfast., Disp: 30 Cap, Rfl: 6 ??? loratadine (CLARITIN) 10 mg Oral Tablet, TAKE 1 TABLET BY MOUTH DAILY, Disp: 63 Tab, Rfl: 2 ??? omeprazole (PRILOSEC) 20 mg Oral Capsule, Delayed Release(E.C.), TAKE 1 CAP BY MOUTH DAILY., Disp: 63 Cap, Rfl: 0 Allergies: Allergies Allergen Reactions ??? Amitriptyline Nausea And Vomiting ??? Amoxil [Amoxicillin] Hives ??? Clarithromycin hives ??? Clindamycin Nausea Only ??? Naproxen Rash ??? Nexium [Esomeprazole Magnesium] Hives and Rash Blisters in Mouth Social History: Social History Substance Use Topics ??? Smoking status: Former Smoker Packs/day: 1.50 Years: 12.00 Types: Cigarettes Quit date: 09/08/1985 ??? Smokeless tobacco: Never Used Comment: quit 25 yrs ago ??? Alcohol use No Family History: Family History Problem Relation Age of Onset ??? Heart Disease Father ??? Cataracts Father ??? Diabetes Father ??? Cancer Maternal Grandmother ??? Colon Cancer Maternal Grandmother ??? Anesth Problems Neg Hx Review Of Systems: Review of Systems - History obtained from the patient General ROS: negative for - chills, fatigue or fever Respiratory ROS: no cough, shortness of breath, or wheezing Cardiovascular ROS: no chest pain or dyspnea on exertion Gastrointestinal ROS: no abdominal pain, change in bowel habits, or black or bloody stools Genito-Urinary ROS: no dysuria, trouble voiding, or hematuria Musculoskeletal ROS: left ankle pain Neurological ROS: no TIA or stroke symptoms Dermatological ROS: positive for - left ankle wound Physical Exam: Vitals: 11/19/18 0853 BP: 131/60 Pulse: 76 Resp: 18 Temp: 98 ??F (36.7 ??C) TempSrc: Oral Weight: 270 lb (122.5 kg) Height: 5' 2 (1.575 m) Constitutional Exam: Alert, calm, cooperative. HENT Exam: Head: Normocephalic. Ears: Normal external ears. Normal Landmarks. Nose: Patent nares. Throat: Moist mucosa. Poor dental status with multiple missing teeth. Airway is widely patent. Eyes: Sclerae clear Cardiovascular Exam: Cardiac: Regular rhythm, normal rate. No murmurs. No jugular distention. No bruits. Respiratory Exam: Normal respiratory rate and effort No wheezing or rales. Normal air movement. Normal breath sounds. Musculoskeletal Exam: Full range of motion without clubbing, cyanosis, or edema. Integumentary: No rashes. Left ankle with pin point open area with serous weeping, multiple scabs over all extremities consistent with bed bug infestation Abdominal: obese, soft non tender. BS+ Vascular: Normal pulses in lower extremities. 2+ edema noted left lower leg. Normal capillary refill. Neurological Exam: Level of consciousness: Alert and oriented times four. Cranial nerves intact. Motor function is grossly intact. Sensory function grossly intact. Psychological: Normal affect. Ulcer Progress and Procedure Please refer to the LDA for details of ulcer progress and procedure. Assessment and Plan Alyssa was seen today for non-healing wound. Diagnoses and all orders for this visit: Type 2 diabetes mellitus without complication, without long-term current use of insulin ([facility]) - [facility] NURSING COMMUNICATION - lidocaine (XYLOCAINE) 5 % ointment; Apply topically once. - [facility] LOWER EXTREMITY ARTERIAL PHYSIOLOGICAL; Future - [facility] LOWER EXTREMITY ARTERIAL DUPLEX COMPLETE; Future - [facility] Diabetic ulcer of lower extremity (HCC) - [facility] NURSING COMMUNICATION - lidocaine (XYLOCAINE) 5 % ointment; Apply topically once. - [facility] LOWER EXTREMITY ARTERIAL PHYSIOLOGICAL; Future - [facility] LOWER EXTREMITY ARTERIAL DUPLEX COMPLETE; Future - [facility] Venous insufficiency - [facility] NURSING COMMUNICATION - lidocaine (XYLOCAINE) 5 % ointment; Apply topically once. - [facility] LOWER EXTREMITY ARTERIAL PHYSIOLOGICAL; Future - [facility] LOWER EXTREMITY ARTERIAL DUPLEX COMPLETE; Future - [facility] Skin ulcer of left ankle with fat layer exposed (HCC) - [facility] NURSING COMMUNICATION - lidocaine (XYLOCAINE) 5 % ointment; Apply topically once. - [facility] LOWER EXTREMITY ARTERIAL PHYSIOLOGICAL; Future - [facility] LOWER EXTREMITY ARTERIAL DUPLEX COMPLETE; Future - [facility] Morbid obesity ([facility]) - [facility] NURSING COMMUNICATION - lidocaine (XYLOCAINE) 5 % ointment; Apply topically once. - [facility] LOWER EXTREMITY ARTERIAL PHYSIOLOGICAL; Future - [facility] LOWER EXTREMITY ARTERIAL DUPLEX COMPLETE; Future - [facility] DRESS[facility] 1. Initiation of standard ulcer therapy this Venous ulcer may include lab work: n/a,imaging:n/a, vascular testing:GWEN/Toe Pressures, and interventions of: Staged debridement, Edema control/ compression and Appropriate dressing selection. 2. If, after 30 days of standard ulcer therapy, no significant ulcer area reduction has been achieved, potential advanced therapies to be considered for the treatment of this ulcer include:n/a. 3. Discussed appropriate care of this ulcer: Glucose management, Diet, Weight loss and Exercise. 4. Patient instructions were given 5. Follow- up 1 week. documented in this encounter Miscellaneous Notes * Patient Instructions - Vicky Lee RN - 11/19/2018 8:28 AM EDT Call central [email or web address] [phone] to arrange appointment time for your prescribed test. Tell them you need to schedule ARTERIAL DOPPLER STUDIES. Try to have this test scheduled as quickly as possible.You can have this test done at any [facility] facility. Dressing to left ankle: Silver alginate to wound bed and weeping areas, cover with dry gauze and secure with roll gauze/tape. Then apply coflex [address] until next visit. Wound Care Supplies: Nancy Slade from [facility] has been consulted to assist you in obtaining wound care supplies. In order for her to make arrangements for supply delivery, she will contact you for insurance verification. She is unable to send supplies until you speak to her. Her contact number is . We will send orders compression hose with liners to nancy 30-40mmhg gradient c ompression. Bedbugs are small, oval, brownish insects that live on the blood of animals or humans. Adult bedbugs have flat bodies about the size of an apple seed. After feeding, however, their bodies swell and are a reddish color. Bedbugs do not fly, but they can move quickly over floors, middleton, and ceilings. Female bedbugs may lay hundreds of eggs, each of which is about the size of a speck of dust, over a lifetime. Immature bedbugs, called nymphs, shed their skins five times before reaching maturity and require ameal of blood before each shedding. Under favorable conditions the bugs can develop fully in as little as a month and produce three or more generations per year. Although they are a nuisance, they are not thought to transmit diseases. Where Bed Bugs Hide Bedbugs may enter your home undetected through luggage, clothing, used beds and couches, and other items. Their flattened bodies make it possible for them to fit into tiny spaces, about the width of a credit card. Bedbugs do not have nests like ants or bees, but tend to live in groups in hiding places. Their initial hiding places are typically in mattresses, box springs, bed frames, and headboards where they have easy access to people to bite in the night. Over time, however, they may scatter through the bedroom, moving into any crevice or protected location. They may also spread to nearby rooms or apartments. Because bedbugs live solely on blood, having them in your home is not a sign of dirtiness. You are as likely to find them in immaculate homes and hotel rooms as in filthy ones. When Bedbugs Bite Bedbugs are active mainly at night and usually bite people while they are sleeping. They feed by piercing the skin and withdrawing blood through an elongated beak. The bugs feed from three to 10 minutes to become engorged and then crawl away unnoticed. Most bedbug bites are painless at first, but later turn into itchy welts. Unlike flea bites that are mainly around the ankles, bedbug bites are on any area of skin exposed while sleeping. Also, the bites do not have a red spot in the center like flea bites do. People who don't realize they have a bedbug infestation may attribute the itching and welts to other causes, such as mosquitoes. To confirm bedbug bites, you must find and identify the bugs themselves. Signs of Infestation If you wake up with itchy areas you didn't have when you went to sleep, you may have bedbugs, particularly if you got a used bed or other used furniture around the time the bites started. Other signsthat you have bedbugs include: Blood stains on your sheets or pillowcases Dark or daniella spots of bedbug excrement on sheets and mattresses, bed clothes, and middleton Bedbug fecal spots, egg shells, or shed skins in areas where bedbugs hide An offensive, musty odor from the bugs' scent glands If you suspect an infestation, remove all bedding and check it carefully for signs of the bugs or their excrement. Remove the dust cover over the bottom of the box springs and examine the seams in the wood framing. Peel back the fabric where it is stapled to the wood frame. Also, check the area around the bed, including inside books, telephones or radios, the edge of the carpet, and even in electrical outlets. Check your closet, because bedbugs can attach to clothing. If you are uncertain about signs of bedbugs, call an gunner's mate g, who will know what to look for. If you find signs of infestation, begin steps to get rid of the bugs and prevent their return. Bedbug Treatments Get rid of clutter around to reduce places bedbugs can hide. Getting rid of bedbugs begins with cleaning up the places where bedbugs live. This should include the following: Clean bedding, linens, curtains, and clothing in hot water and dry them on the highest dryer setting. Place stuffed animals, shoes, and other items that can't be washed in the dryer and run on high for 30 minutes. Use a stiff brush to scrub mattress seams to remove bedbugs and their eggs before vacuuming. Vacuum carpets, floors, bed frames, furniture, cracks and crevices daily. After vacuuming, immediately place the vacuum flask cleaner bag in a plastic bag and place in garbage can outdoors. Encase mattress and box springs in a zippered cover that is labeled ???for bed bugs?? for at leasta full year. Periodically check cover for rips or openings and repair or replace as needed. Repair cracks in plaster and glue down peeling wallpaper to get rid of places bedbugs can hide. If your mattress is infested, you may want to get rid of it and get a new one, but take care to ridthe rest of your home of bedbugs or they will infest your new mattress. Bedbug Extermination While cleaning up infested areas will be helpful in controlling bedbugs, getting rid of them usually requires pesticides. Foggers and bug bombs are not effective against bed bugs. Generally it is safest and most effective to hire an experienced pest control professional for bedbug extermination. https://www1.pending sale to [facility].gov/assets/miguel/downloads/pdf/vector/zci-men-udqfr.pdf Make appt for one week for recheck. documented in this encounter Plan of Treatment Upcoming Encounters Date Type Department Care Team (Late st Contact Info) Description 07/29/2024 9:00 AM EST Appointment [facility] [address] [place] [address] Jomar Kim MD [address] [place] [address] Scheduled Orders Name Type Priority Associated Diagnoses Order Schedule [facility] LOWER EXTREMITY ARTERIAL PHYSIOLOGICAL Imaging Cardiology Routine Diabetic ulcer of lower extremity (HCC) Venous insufficiency Type 2 diabetes mellitus without complication, without long-term current use of insulin (HCC) Skin ulcer of left ankle with fat layer exposed (HCC) Morbid obesity (HCC) 1 Occurrences starting 11/19/2018 until 11/19/2020 [facility] LOWER EXTREMITY ARTERIAL DUPLEX COMPLETE Imaging Cardiology Routine Diabetic ulcer of lower extremity (HCC) Venous insufficiency Type 2 diabetes mellitus without complication, without long-term current use of insulin (HCC) Skin ulcer of left ankle with fat layer exposed (HCC) Morbid obesity (HCC) 1 Occurrences starting 11/19/2018 until 11/19/2020 documented as of this encounter Goals Goal [...] weekly. ?? Refer to PCP and/or Product Finisher, Vascular Specialist as indicated. ?? Monitor [...] long-term current use of insulin (HCC)- Primary Diabetic ulcer of lower extremity (HCC) Type II or unspecified type diabetes mellitus with other specified manifestations, not stated as uncontrolled Venous insufficiency Unspecified venous (peripheral) insufficiency Skin ulcer of left ankle with fat layer exposed (HCC) Morbid obesity (HCC) Morbid obesity documented in this encounter Administered Medications Inactive Administered Medications - up to 1 most recent administrations Medication Order MAR Action Action Date Dose Rate Site lidocaine (XYLOCAINE) 5 % ointment Topical, ONCE, 1 dose, On Cyn 11/19/18 at 0900, Dx: 1. Diabetic ulcer of lower extremity (HCC) 2. Venous insufficiency 3. Type 2 diabetes mellitus without complication, without long-term current use of insulin (HCC) 4. Skin ulcer of left ankle with fat layer exposed (HCC) 5. Morbid obesity (HCC)Indications:Diabetic ulcer of lower extremity (HCC),Venous insufficiency,Type 2 diabetes mellitus without complication, without long-term current use of insulin (HCC),Skin ulcer of left ankle with fat layer exposed (HCC),Morbid obesity (HCC) Given 11/19/2018 9:19 AM EDT documented in this encounter Orders Nursing Count Last Ordered Date First Orde red Date AMB NURSING COMMUNICATION 1 11/19/2018 AMB [facility] PRIMARY DRESSING 1 11/19/2018 documented in this encounter Care Teams Membership Advisor Relationship Specialty Start Date End Date Cristiane Shirley MD [address] [place] [address] PCP - General Family Medicine 08/20/18 12/29/23 Garett Holt MD Internal Medicine-Gastroenterology 12/22/12 Ruiz Stokes MD [address] [place] [id number] Internal Medicine-Cardiovascular Disease 07/25/14 Yenny Schwab MD [address] [place] [address] Internal Medicine-Rheumatology 12/11/16 documented as of this encounter
--- OUTSIDE RECORDS SUMMARY | 2024-07-22 16:10 | XMS_ITS | Encounter Summary ---
Author Organization [place] [address] Care Team Providers Care Locomotive Mechanic Name Role Phone Garett Holt MD Unavailable [phone] Ruiz Stokes MD Unavailable [phone] Yenny Schwab MD Unavailable [phone] Cristiane Shirley MD Primary Care Provider [phone] Reason for Visit * Reason Onset Date Comments Medication Refill 01/06/2019 Encounter Details Date Type Department Care Team (Late st Contact Info) Description 01/06/2019 Refill SEP [facility] [address] [place] [address] Cristiane Shirley MD [address] [place] [address] Medication Refill Social History Tobacco Use Types [...] Ni Clinton RN documented in this encounter Ordered Prescriptions Prescription Sig Dispense Quantity Refills Last Filled Start Date End Date cholecalciferol, vitamin D3, (VITAMIN D3) 1,000 unit Oral Tablet Take 1 Tab by mouth daily. 63 Tab 01/06/2019 03/01/2019 omeprazole (PRILOSEC) 20 mg Oral Capsule, Delayed Release(E.C.) Take 1 Cap by mouth daily. 63 Cap 01/06/2019 03/01/2019 metFORMIN (GLUCOPHAGE) 500 mg Oral Tablet Take 1 Tab by mouth daily (with breakfast). 63 Tab 2 01/06/2019 07/22/2019 loratadine (CLARITIN) 10 mg Oral TabletIndications: Seasonal allergic rhinitis due to pollen Take 1 Tab by mouth daily. 63 Tab 2 01/06/2019 07/22/2019 lisinopril (PRINIVIL;ZESTRIL) 20 mg Oral Tablet tabletIndications: Essential hypertension Take 1 Tab by mouth daily. 63 Tab 2 01/06/2019 07/22/2019 atorvastatin (LIPITOR) 20 mg Oral Tablet TAKE 1 TABLET (20MG) BY MOUTH ONCE DAILY 30 Tab 2 01/06/2019 03/01/2019 amLODIPine (NORVASC) 10 mg Oral TabletIndications: Essential hypertension Take 1 Tab by mouth daily. 63 Tab 2 01/06/2019 07/22/2019 documented in this encounter Plan of Treatment Upcoming Encounters Date Type Department Care Team (Late st Contact Info) Description 07/29/2024 9:00 AM EST Appointment [facility] [address] [place] [address] Jomar Kim MD [address] [place] [address] documented as of this encounter Goals Goal Patient Goal Type Associated Problems Recent Progress Patient-Stated? Author Blood Pressure < 140/90 Blood Pressure 110/72(04/27 2:44 PM EDT) No Rachel Rogers RMA BMI (Calculated) < 30 General 50.9( 024 2:44 PM EDT) No Rachel Rogers RMA Eat better, exercise, reach an ideal body weight General No Ni Clinton, backhaul driver Healing General On track(2018 9:18 AM [...] neuropathy weekly. ?? Refer to PCP and/or Pick Pulling Machine Operator, Vascular Specialist as indicated. ?? Monitor patient compliance with wound care, diabetes management and proper offloading. Stay Tobacco Free Lifestyle On track(2020 10:23 AM EDT) Wendy Moon LPN HEMOGLOBIN A1C < 7.0 Result Component 5.6(11/09/19 3:04 PM EST) Rachel Regan RMA documented as of this encounter Visit Diagnoses Diagnosis Essential hypertension Unspecified essential hypertension Seasonal allergic rhinitis due to pollen documented in this encounter Discontinued Medications Medication Sig Discontinue Reason Start Date End Da te amLODIPine (NORVASC) 10 mg Oral TabletIndications:Essent ial hypertension TAKE 1 TABLET BY MOUTH DAILY Reorder 07/13/2018 01/06/2019 atorvastatin (LIPITOR) 20 mg Oral Tablet TAKE 1 TABLET (20MG) BY MOUTH ONCE DAILY Reorder 11/04/2018 01/06/2019 lisinopril (PRINIVIL;ZESTRIL) 20 mg Oral Tablet tabletIndications:Essent ial hypertension TAKE 1 TABLET BY MOUTH ONCE DAILY Reorder 07/13/2018 01/06/2019 loratadine (CLARITIN) 10 mg Oral TabletIndications:Season al allergic rhinitis due to pollen TAKE 1 TABLET BY MOUTH DAILY Reorder 07/13/2018 01/06/2019 metFORMIN (GLUCOPHAGE) 500 mg Oral TabletIndications:Type 2 diabetes mellitus without complication (HCC) TAKE 1 TABLET BY MOUTH DAILY WITH BREAKFAST Reorder 07/13/2018 01/06/2019 omeprazole (PRILOSEC) 20 mg Oral Capsule, Delayed Release(E.C.) TAKE 1 CAP BY MOUTH DAILY. Reorder 11/04/2018 01/06/2019 VITAMIN D3 1,000 unit Oral Tablet TAKE 1 TAB BY MOUTH DAILY. Reorder 11/04/2018 01/06/2019 documented as of this encounter Care Teams Locomotive Mechanic Relationship Specialty Start Date End Date Cristiane Shirley MD [address] [place] [address] PCP - General Family Medicine 08/20/18 12/29/23 Garett Holt MD Internal Medicine-Gastroenterology 12/22/12 Ruiz Stokes MD [address] [place], [place] [id number] Internal Medicine-Cardiovascular Disease 07/25/14 Yenny Schwab MD [address] [facility] Building [address] [place], [place] [address] Internal Medicine-Rheumatology 12/11/16 documented as of this encounter
--- OUTSIDE RECORDS SUMMARY | 2024-07-22 16:10 | XMS_ITS | Encounter Summary ---
Author Organization [place] [address] Care Team Providers Care Metal Fabrication Supervisor Name Role Phone Garett Holt MD Unavailable [phone] Ruiz Stokes MD Unavailable [phone] Yenny Schwab MD Unavailable [phone] Cristiane Shirley MD Primary Care Provider [phone] Reason for Visit * Reason Onset Date Comments Medication Change 09/14/2018 Encounter Details Date Type Department Care Team (Late st Contact Info) Description 09/14/2018 Telephone [facility] [address] [place] [address] Cristiane Shirley MD [address] [place], [place] [id number] Medication Change Social History Tobacco Use Types Packs/Day Years [...] Ni Clinton RN documented in this encounter Miscellaneous Notes * Telephone Encounter - Katherine Lopez RMA - 09/14/2018 1:36 PM EST Spoke with [facility]. Advised. * Telephone Encounter - Doron Rojas APRN - 09/14/2018 11:58 AM EST Ok for patient to take amitiza 24 mcg BID * Telephone Encounter - Daisy Newman - 09/14/2018 9:47 AM EST Pharmacy states patient is on Linzess but they don't have that available. They have Amitiza 24mcg. Would it be ok to change to the Amitiza?? documented in this encounter Plan of Treatment Upcoming Encounters Date Type Department Care Team (Late st Contact Info) Description 07/29/2024 9:00 AM EST Appointment [facility] [address] [place], [place] [id number] Jomar Kim MD [address] [place] [address] documented as of this encounter Goals Goal Patient Goal Type Associated Problems Recent Progress Patient-Stated? Author Blood Pressure < 140/90 Blood Pressure 110/72(2023 2:44 PM EDT) No Rachel Rogers, RMA BMI (Calculated) < 30 General 50.9(04/27/20 24 2:44 PM EDT) No Rachel Rogers, RMA Eat better, exercise, reach an ideal body weight General No Ni Clinton, RN Stay Tobacco Free Lifestyle On track( 021 10:23 AM EDT) No Wendy Espinoza LPN HEMOGLOBIN A1C < 7.0 Result Component 5.6( 4 3:04 PM EST) No Rachel Rogers, RMA documented as of this encounter Visit Diagnoses Not on filedocumented in this encounter Care Teams Metal Fabrication Supervisor Relationship Specialty Start Date End Date Cristiane Shirley MD [address] [place] [address] PCP - General Family Medicine 08/20/18 12/29/23 Garett Holt MD Internal Medicine-Gastroenterology 12/22/12 Ruiz Stokes MD [address] [place] [address] Internal Medicine-Cardiovascular Disease 07/25/14 Yenny Schwab MD [address] [place] [address] Internal Medicine-Rheumatology 12/11/16 documented as of this encounter
--- OUTSIDE RECORDS SUMMARY | 2024-07-22 16:10 | XMS_ITS | Encounter Summary ---
Author Organization [facility] [place] [address] Care Team Providers Care Loft Worker Apprentice Name Role Phone Garett Holt MD Unavailable [phone] Ruiz Stokes MD Unavailable [phone] Yenny Schwab MD Unavailable [phone] Cristiane Shirley MD Primary Care Provider [phone] Reason for Visit * Reason Comments Medication Refill Encounter Details Date Type Department Care Team (Late st Contact Info) Description 11/04/[address] [address] Cristiane Shirley MD [address] [place], [place] [id number] Medication Refill Social History Tobacco Use Types [...] 1 CAP BY MOUTH DAILY. 63 Cap 11/04/2018 01/06/2019 VITAMIN D3 1,000 unit Oral Tablet TAKE 1 TAB BY MOUTH DAILY. 63 Tab 11/04/2018 01/06/2019 atorvastatin (LIPITOR) 20 mg Oral Tablet TAKE 1 TABLET (20MG) BY MOUTH ONCE DAILY 30 Tab 2 11/04/2018 01/06/2019 documented in this encounter Plan of Treatment Upcoming Encounters Date Type Department Care Team (Late st Contact Info) Description 07/29/2024 9:00 AM EST Appointment [facility] [address] [place] [address] Jomar Kim MD [address] [facility] [id number] documented as of this encounter Goals Goal Patient Goal Type Associated Problems Recent Progress Patient-Stated? Author Blood Pressure < 140/90 Blood Pressure 110/72(2023 2:44 PM EDT) No Rachel Rogers RMA BMI (Calculated) < 30 General 50.9(04/27/20 2:44 PM EDT) No Rachel Rogers RMA Eat better, exercise, reach an ideal body weight General No Ni Clinton, MATT Stay Tobacco Free Lifestyle On track( 021 10:23 AM EDT) No Wendy Espinoza LPN HEMOGLOBIN A1C < 7.0 Result Component 5.6( 4 3:04 PM EST) No Rachel Rogers RMA documented as of this encounter Visit Diagnoses Diagnosis Type 2 diabetes mellitus without complication, without long-term current use of insulin (HCC)- Primary documented in this encounter Discontinued Medications Medication Sig Discontinue Reason Start Date End Da te atorvastatin (LIPITOR) 20 mg Oral Tablet TAKE 1 TABLET (20MG) BY MOUTH ONCE DAILY Reorder 09/15/2018 11/04/2018 cholecalciferol, vitamin D3, (VITAMIN D3) 1,000 unit Oral Tablet Take 1 Tab by mouth daily. Reorder 09/14/2018 11/04/2018 omeprazole (PRILOSEC) 20 mg Oral Capsule, Delayed Release(E.C.) Take 1 Cap by mouth daily. Reorder 09/14/2018 11/04/2018 documented as of this encounter Care Teams Loft Worker Apprentice Relationship Specialty Start Date End Date Cristiane Shirley MD [address] [place] [address] PCP - General Family Medicine 08/20/18 12/29/23 Garett Holt MD Internal Medicine-Gastroenterology 12/22/12 Ruiz Stokes MD [address] [place] [address] Internal Medicine-Cardiovascular Disease 07/25/14 Yenny Schwab MD [address] [facility] Building [address] [place] [address] Internal Medicine-Rheumatology 12/11/16 documented as of this encounter
--- OUTSIDE RECORDS SUMMARY | 2024-07-22 16:10 | XMS_ITS | Encounter Summary ---
Author Organization [place] [address] Care Team Providers Care Masonry Instructor Name Role Phone Garett Holt MD Unavailable [phone] Ruiz Stokes MD Unavailable [phone] Yenny Schwab MD Unavailable [phone] Cristiane Shirley MD Primary Care Provider [phone] Reason for Visit * Reason Comments Medication Refill Encounter Details Date Type Department Care Team (Late st Contact Info) Description 03/01/2019 Refill [facility] [address] [place] [address] Cristiane Shirley MD [address] [place] [address] Medication Refill Social History Tobacco Use Types [...] Entry Date Author No 01/23/2019 9:05 AM iNtin Rider CMA documented in this encounter Ordered Prescriptions Prescription Sig Dispense Quantity Refills Last Filled Start Date End Date atorvastatin (LIPITOR) 20 mg Oral Tablet TAKE 1 TABLET BY MOUTH ONCE DAILY 30 Tab 2 03/01/2019 05/06/2019 omeprazole (PRILOSEC) 20 mg Oral Capsule, Delayed Release(E.C.) TAKE 1 CAP BY MOUTH DAILY. 63 Cap 03/01/2019 05/06/2019 VITAMIN D3 1,000 unit Oral Tablet TAKE 1 TAB BY MOUTH DAILY. 63 Tab 03/01/2019 05/06/2019 documented in this encounter Plan of Treatment Upcoming Encounters Date Type Department Care Team (Late st Contact Info) Description 07/29/2024 9:00 AM EST Appointment [facility] [address] [place] [id number] Jomar Kim MD [address] [facility] [place] [address] documented as of this encounter Goals Goal Patient Goal Type Associated Problems Recent Progress Patient-Stated? Author Blood Pressure < 140/90 Blood Pressure 110/72(04/27 2:44 PM EDT) No Rachel Rogers RMA BMI (Calculated) < 30 General 50.9( 024 2:44 PM EDT) No Rachel Rogers RMA Eat better, exercise, reach an ideal body weight General No Ni Clinton, rehabilitation consultant Healing General On track(2018 9:18 AM EDT) [...] weekly. ?? Refer to PCP and/or It Coordinator, Vascular Specialist as indicated. ?? Monitor [...] Discontinue Reason Start Date End Da te cholecalciferol, vitamin D3, (VITAMIN D3) 1,000 unit Oral Tablet Take 1 Tab by mouth daily. Reorder 01/06/2019 03/01/2019 omeprazole (PRILOSEC) 20 mg Oral Capsule, Delayed Release(E.C.) Take 1 Cap by mouth daily. Reorder 01/06/2019 03/01/2019 atorvastatin (LIPITOR) 20 mg Oral Tablet TAKE 1 TABLET (20MG) BY MOUTH ONCE DAILY Reorder 01/06/2019 03/01/2019 documented as of this encounter Care Teams Masonry Instructor Relationship Specialty Start Date End Date Cristiane Shirley MD [address] [place] [address] PCP - General Family Medicine 08/20/18 12/29/23 Garett Holt MD Internal Medicine-Gastroenterology 12/22/12 Ruiz Stokes MD [address] [place] [address] Internal Medicine-Cardiovascular Disease 07/25/14 Yenny Schwab MD [address] [address] Internal Medicine-Rheumatology 12/11/16 documented as of this encounter
--- OUTSIDE RECORDS SUMMARY | 2024-07-22 16:10 | XMS_ITS | Encounter Summary ---
Author Organization [place] [address] Care Team Providers Care Welder Production Line Arc Name Role Phone Garett Holt MD Unavailable [phone] Ruiz Stokes MD Unavailable [phone] Yenny Schwab MD Unavailable [phone] Cristiane Shirley MD Primary Care Provider [phone] Encounter Details Date Type Department Care Team (Late st Contact Info) Description 09/30/2018 Abstract SEP [facility] [address] [place] [address] Brynn Morgan Leigh Social History Tobacco Use Types Packs/Day Years [...] 9:00 AM EST Appointment [facility] [address] [place], [place] [id number] Jomar Kim MD [address] [place] [address] documented as of this encounter [...] 4 3:04 PM EST) No Rachel Rogers, MULU documented as of this encounter Procedures Procedure Name Priority Date/Time Associated Diagnosis Comments DIABETES EYE EXAM Routine 06/17/2018 documented in this encounter Results * DIABETES EYE EXAM (06/17/2018) Left Diabetic Retinopathy Not Present Present/Not Present SEP OFFICE Right Diabetic Retinopathy Not Present Present/Not Present SEP OFFICE 06/17/2018 us Historical Provider HEALTH MAINTENANCE Final Res ult SEP OFFICE documented in this encounter Visit Diagnoses Not on filedocumented in this encounter Care Teams Welder Production Line Arc Relationship Specialty Start Date End Date Cristiane Shirley MD [address] [place] [address] PCP - General Family Medicine 08/20/18 12/29/23 Garett Holt MD Internal Medicine-Gastroenterology 12/22/12 Ruiz Stokes MD [address] [place] [address] Internal Medicine-Cardiovascular Disease 07/25/14 Yenny Schwab MD [address] [facility] Building [address] [place], [place] [address] Internal Medicine-Rheumatology 12/11/16 documented as of this encounter
--- OUTSIDE RECORDS SUMMARY | 2024-07-22 16:10 | XMS_ITS | Encounter Summary ---
Author Organization [place] [address] Care Team Providers Care Maxillofacial Surgeon Name Role Phone Garett Holt MD Unavailable [phone] Ruiz Stokes MD Unavailable [phone] Yenny Schwab MD Unavailable [phone] Cristiane Shirley MD Primary Care Provider [phone] Reason for Referral * Consultation (Routine) - Closed Specialty Diagnoses / Procedures Referred By Ron bansal Referred To Contact Diagnoses Callus of foot Mehul Schmidt DO Phone: tel: fax: Regan Pereira DPM Phone: tel: fax: Referral ID Status Reason Start Date Expiration Date Visits Re quested Visits Authorized [id number] Closed 01/23/2019 01/23/2020 1 99 Reason for Visit * Reason Comments Annual Exam Ankle Pain wound on left ankle, x 2 months Calluses painful callus on le ft sub 5 Diabetes 88 to 133 Hypertension Hyperlipidemia Encounter Details Date Type Department Care Team (Late st Contact Info) Description 01/23/2019 9:15 AM EDT Office Visit [facility] [address] [phone] Mehul Schmidt DO [address] [id number] Annual physical exam (Primary Dx); Type 2 diabetes mellitus without complication, without long-term current use of insulin (HCC); Visit for screening mammogram; Cellulitis of left ankle; Callus of foot Social History Tobacco Use [...] Refills Last Filled Start Date End Date sulfamethoxazole-tr imethoprim (BACTRIM DS) 800-160 mg Oral TabletIndications:C ellulitis of left ankle Take 1 Tab by mouth every 12 hours for 10 days. 20 Tab 01/23/2019 02/02/2019 documented in this encounter Progress Notes * Mehul Schmidt, - 01/23/2019 9:15 AM EDT Subsequent AnnualThere were no vitals filed for this visit. Chief Complaint Patient presents with ??? Annual Exam ??? Ankle Pain wound on left ankle, x 2 months ??? Calluses painful callus on left sub 5 ??? Diabetes 88 to 133 ??? Hypertension ??? Hyperlipidemia HPI: Medicare Wellness Assessment Flowsheet Version: Ms. Jamil is a 63 y.o. female here for an Subsequent Annual Medicare Wellness Assessment. Below are the results from wellness category assessments administered throughout the year compiled for review as part of today's assessment. Fall Risk Assessment Has the patient had any fall with injury in the past year?: Yes Has the patient had 2 or more falls in the past year?: No Is the patient able to sit without assistance?: Yes Is the patient able to get up without assistance?: Yes Does the patient have a difficult time ambulating when first getting up?: Yes Does the patient have rugs or runners in the home?: No Does the patient have grab bars in the bathroom?: Yes Does the patient have handrails for all inside or outside stairs?: No (In office Assessment Only): Is the patient able to ambulate without assistance/device and with a gait steady?: No (In office Assessment Only): Is the patient able to get out of the exam chair and ambulate steadilyin less than 30 second?: Yes Functional Status Assessment Functional Level: partial assistance Functional Mobility Assessment: mobile with cane/walker Assessment of transportation needs: dependent on other/public transportation Activities of Daily Living Assistive Device Assessment Assistive Devices: Cane;Shower chair;Walker Osteoporosis Screening Assessment Abnormal Pains Assessment Excluding what you would consider normal aches and pains for your age and medical condition, do youhave any unusual or worrisome pains?: No PHQ Depression Screening Results Little interest or pleasure in doing things: 0 Feeling down, depressed, or hopeless: 0 PHQ-2 Total Score: 0 PHQ-9 Total Score: 0 Advanced Directive Evaluation Advance Care Planning Guide Given?: No (For Dementia Screening below can use either AD-8 or Mini Cog. Doesn't require both.) AD-8 Dementia Screening tool results Mini Cog Dementia Screening tool results No exam data present No results found for this visit on 01/23/19. Patient Active Problem List Diagnosis ??? Esophageal reflux ??? Osteoarthrosis, unspecified whether generalized or localized, unspecified site ??? Dysphagia ??? Encounter for screening colonoscopy ??? Leg pain, right ??? SOB (shortness of breath) ??? Systolic murmur ??? Ventral hernia ??? Hiatal hernia ??? DDD (degenerative disc disease), lumbosacral ??? HAMIDA (obstructive sleep apnea) ??? Endometrial hyperplasia ??? Endometrial hyperplasia ??? History of endometrial cancer ??? Chronic headache ??? Temporal arteritis (HCC) ??? Dizziness ??? Type 2 diabetes mellitus without complication (HCC) ??? Morbid obesity (HCC) ??? Venous insufficiency Past Medical History: Diagnosis Date ??? Anemia [...] BIOPSY ; Surgeon: Christa Chavez MD; Location: [facility] MAIN OR; Service: General ??? CARDIAC [...] and Rash Blisters in Mouth Current Outpatient Prescriptions on File Prior to Visit Medication Sig Dispense Refill ??? AMITIZA 24 mcg Oral Capsule TAKE ONE CAPSULE BY MOUTH TWICE A DAY. THIS REPLACES LINZESS. 126 Cap 0 ??? amLODIPine (NORVASC) 10 mg Oral Tablet Take 1 Tab by mouth daily. 63 Tab 2 ??? ASPIRIN LOW DOSE 81 mg Oral Tablet, Delayed Release (E.C.) TAKE 1 TABLET BY MOUTH DAILY 63 Tab 3 ??? atorvastatin (LIPITOR) 20 mg Oral Tablet TAKE 1 TABLET (20MG) BY MOUTH ONCE DAILY 30 Tab 2 ??? Blood-Glucose Meter Misc Kit Please fill with what her ins will cover 1 Kit 0 ??? CALCIUM ORAL Take by mouth daily. ??? celecoxib (CELEBREX) 200 mg Oral Capsule TAKE 1 CAPSULE BY MOUTH ONCE DAILY 30 Cap 0 ??? cholecalciferol, vitamin D3, (VITAMIN D3) 1,000 unit Oral Tablet Take 1 Tab by mouth daily. 63 Tab 0 ??? docusate sodium (COLACE) 100 mg Oral Capsule TAKE 1 CAPSULE BY MOUTH TWICE DAILY 60 Cap 0 ??? fluticasone (FLONASE) 50 mcg/actuation Nasl [place], Suspension INSTILL 1 SPRAY IN EACH NOSTRIL EVERY DAY 16 g 6 ??? fUROsemide (LASIX) 20 mg Oral Tablet Take 1 Tab by mouth daily as needed. 30 Tab 2 ??? linaclotide (LINZESS) 145 mcg Oral Capsule Take 1 Cap by mouth before breakfast. 30 Cap 6 ??? lisinopril (PRINIVIL;ZESTRIL) 20 mg Oral Tablet tablet Take 1 Tab by mouth daily. 63 Tab 2 ??? loratadine (CLARITIN) 10 mg Oral Tablet Take 1 Tab by mouth daily. 63 Tab 2 ??? metFORMIN (GLUCOPHAGE) 500 mg Oral Tablet Take 1 Tab by mouth daily (with breakfast). 63 Tab 2 ??? naproxen sodium (ANAPROX) 220 mg Oral Tablet Take 220 mg by mouth 2 times daily (with meals). ??? omeprazole (PRILOSEC) 20 mg Oral Capsule, Delayed Release(E.C.) Take 1 Cap by mouth daily. 63 Cap 0 ??? oxybutynin (DITROPAN-XL) 10 mg Oral Tablet Extended Rel 24 hr Take 1 Tab by mouth 2 times daily. 60 Tab 2 No current facility-administered medications on file prior to visit. Social History Social History ??? Marital status: Spouse name: N/A ??? Number of children: 2 ??? Years of education: N/A Occupational History ??? disabled Social History Main Topics ??? Smoking status: Former Smoker Packs/day: 1.50 Years: 35.00 Types: Cigarettes Start date: 01/24/1972 Quit date: 01/24/1984 ??? Smokeless tobacco: Never Used ??? Alcohol use No ??? Drug use: No ??? Sexual activity: Yes Partners: Male control/ protection: Post-menopausal Other Topics Concern ??? None Social History Narrative ??? None Family History Problem Relation Age of Onset ??? Heart Disease Father ??? Cataracts Father ??? Diabetes Father ??? Cancer Maternal Grandmother ??? Colon Cancer Maternal Grandmother ??? Anesth Problems Neg Hx Immunization History Administered Date(s) Administered ??? Pneumococcal Polysaccharide 23 Valent 11/15/2015 ??? Tdap 01/06/2013 Health Maintenance Topic Date Due ??? Hepatitis B Vaccine (1 of 3 - Risk 3-dose series) 1975 ??? Zoster (1 of 2) 2006 ??? Breast Cancer Screening 11/14/2017 ??? Cervical Cancer Screening 03/27/2018 ??? Annual Wellness Exam 01/06/2019 ??? Hemoglobin A1c 02/18/2019 ??? Influenza Vaccine (Season Ended) 2019 ??? Microalbuminuria 05/27/2019 ??? Lipids 08/20/2019 ??? Diabetic Eye Exam 06/17/2020 ??? Colon Cancer Screening: Colonoscopy 02/17/2023 ??? Pneumococcal Vaccine (Medium Risk) 19-64 Completed ??? Hepatitis C Screening Completed Health Maintenance Due Topic Date Due ??? Hepatitis B Vaccine (1 of 3 - Risk 3-dose series) 1975 ??? Zoster (1 of 2) 2006 ??? Breast Cancer Screening 11/14/2017 ??? Cervical Cancer Screening 03/27/2018 ??? Annual Wellness Exam 01/06/2019 Patient Care Team: Cristiane Shirley MD as PCP - General (Family Medicine) Garett Holt MD (Internal Medicine-Gastroenterology) Ruiz Stokes MD (Internal Medicine-Cardiovascular Disease) Yenny Schwab MD (Internal Medicine-Rheumatology) === Other chronic disease management or a [...] sugars was reviewed at time of visit. BGs have been labile ranging between 88/133and 133. Pt denies episodes of hypo or hyperglycemia. [...] patient. Review of Systems Constitutional: Negative for appetite change, chills, fatigue and fever. HENT: Negative for congestion, ear pain, facial swelling, postnasal drip, rhinorrhea, sinus pressure, sneezing, sore throat, tinnitus and trouble swallowing. Eyes: Negative for discharge and visual disturbance. Respiratory: Negative for cough, chest tightness, shortness of breath and wheezing. Cardiovascular: Negative for chest pain, palpitations and leg swelling. Gastrointestinal: Negative for abdominal distention, abdominal pain, blood in stool, constipation, diarrhea, nausea and vomiting. Genitourinary: Negative for dysuria. Musculoskeletal: Negative for arthralgias, back pain, joint swelling, myalgias and neck pain. Skin: Negative for color change and rash. Neurological: Negative for dizziness, speech difficulty, weakness, light- headedness, numbness and headaches. Hematological: Negative for adenopathy. Does not bruise/bleed easily. Psychiatric/Behavioral: Negative for agitation, behavioral problems and confusion. The patient is not nervous/anxious. All other systems reviewed and are negative. Physical Exam Constitutional: She is oriented to person, place, and time. She appears well- developed and well-nourished. HENT: Right Ear: External ear normal. Left Ear: External ear normal. Mouth/Throat: No oropharyngeal exudate. Eyes: Pupils are equal, round, and reactive to light. Conjunctivae and EOM are normal. No scleral icterus. Neck: Normal range of motion. Neck supple. No thyromegaly present. No carotid bruits Cardiovascular: Normal rate, regular rhythm and normal heart sounds. No murmur heard. Pulmonary/Chest: Effort normal and breath sounds normal. No respiratory distress. She has no wheezes. She has no rales. Abdominal: Soft. Bowel sounds are normal. She exhibits no distension. There is no tenderness. Thereis no rebound and no guarding. Musculoskeletal: Normal range of motion. She exhibits no edema. Lymphadenopathy: She has no cervical adenopathy. Neurological: She is alert and oriented to person, place, and time. She has normal reflexes. No cranial nerve deficit. She exhibits normal muscle tone. Coordination normal. Skin: Skin is warm and dry. No rash noted. There is erythema. Left lower ext with area of erythena Psychiatric: She has a normal mood and affect. Her behavior is normal. Patient Active Problem List Diagnosis ??? Esophageal reflux ??? Osteoarthrosis, unspecified whether generalized or localized, unspecified site ??? Dysphagia ??? Encounter for screening colonoscopy ??? Leg pain, right ??? SOB (shortness of breath) ??? Systolic murmur ??? Ventral hernia ??? Hiatal hernia ??? DDD (degenerative disc disease), lumbosacral ??? HAMIDA (obstructive sleep apnea) ??? Endometrial hyperplasia ??? Endometrial hyperplasia ??? History of endometrial cancer ??? Chronic headache ??? Temporal arteritis (HCC) ??? Dizziness ??? Type 2 diabetes mellitus without complication (HCC) ??? Morbid obesity (HCC) ??? Venous insufficiency Past Medical History: Diagnosis Date ??? Anemia [...] BIOPSY ; Surgeon: Christa Chavez MD; Location: [facility] MAIN OR; Service: General ??? CARDIAC CATHETERIZATION 04/2015 ??? CHOLECYSTECTOMY 1989 ??? COLONOSCOPY ??? COLONOSCOPY 02/17/2013 Surgeon: Garett Holt MD; [facility]: [facility]; Service: ??? DENTAL SURGERY upper and lower teeth removed ??? UPPER GASTROINTESTINAL ENDOSCOPY ??? UPPER GASTROINTESTINAL ENDOSCOPY 02/17/2013 Surgeon: Garett Holt MD; Location: [facility]; Service: Social History Social History ??? Marital status: Spouse name: N/A ??? Number of children: 2 ??? Years of education: N/A Occupational History ??? disabled Social History Main Topics ??? Smoking status: Former Smoker Packs/day: 1.50 Years: 35.00 Types: Cigarettes Start date: 01/24/1972 Quit date: 01/24/1984 ??? Smokeless tobacco: Never Used ??? Alcohol use No ??? Drug use: No ??? Sexual activity: Yes Partners: Male control/ protection: Post-menopausal Other Topics Concern ??? None Social History Narrative ??? None Family History Problem Relation Age of Onset ??? Heart Disease Father ??? Cataracts Father ??? Diabetes Father ??? Cancer Maternal Grandmother ??? Colon Cancer Maternal Grandmother ??? Anesth Problems Neg Hx Allergies Allergen Reactions ??? Amitriptyline Nausea And Vomiting ??? Amoxil [Amoxicillin] Hives ??? Clarithromycin hives ??? Clindamycin Nausea Only ??? Naproxen Rash ??? Nexium [Esomeprazole Magnesium] Hives and Rash Blisters in Mouth Outpatient Encounter Prescriptions as of 01/23/2019 Medication Sig Dispense Refill ??? AMITIZA 24 mcg Oral Capsule TAKE ONE CAPSULE BY MOUTH TWICE A DAY. THIS REPLACES LINZESS. 126 Cap 0 ??? amLODIPine (NORVASC) 10 mg Oral Tablet Take 1 Tab by mouth daily. 63 Tab 2 ??? ASPIRIN LOW DOSE 81 mg Oral Tablet, Delayed Release (E.C.) TAKE 1 TABLET BY MOUTH DAILY 63 Tab 3 ??? atorvastatin (LIPITOR) 20 mg Oral Tablet TAKE 1 TABLET (20MG) BY MOUTH ONCE DAILY 30 Tab 2 ??? Blood-Glucose Meter Misc Kit Please fill with what her ins will cover 1 Kit 0 ??? CALCIUM ORAL Take by mouth daily. ??? celecoxib (CELEBREX) 200 mg Oral Capsule TAKE 1 CAPSULE BY MOUTH ONCE DAILY 30 Cap 0 ??? cholecalciferol, vitamin D3, (VITAMIN D3) 1,000 unit Oral Tablet Take 1 Tab by mouth daily. 63 Tab 0 ??? docusate sodium (COLACE) 100 mg Oral Capsule TAKE 1 CAPSULE BY MOUTH TWICE DAILY 60 Cap 0 ??? fluticasone (FLONASE) 50 mcg/actuation Nasl [place], Suspension INSTILL 1 SPRAY IN EACH NOSTRIL EVERY DAY 16 g 6 ??? fUROsemide (LASIX) 20 mg Oral Tablet Take 1 Tab by mouth daily as needed. 30 Tab 2 ??? linaclotide (LINZESS) 145 mcg Oral Capsule Take 1 Cap by mouth before breakfast. 30 Cap 6 ??? lisinopril (PRINIVIL;ZESTRIL) 20 mg Oral Tablet tablet Take 1 Tab by mouth daily. 63 Tab 2 ??? loratadine (CLARITIN) 10 mg Oral Tablet Take 1 Tab by mouth daily. 63 Tab 2 ??? metFORMIN (GLUCOPHAGE) 500 mg Oral Tablet Take 1 Tab by mouth daily (with breakfast). 63 Tab 2 ??? naproxen sodium (ANAPROX) 220 mg Oral Tablet Take 220 mg by mouth 2 times daily (with meals). ??? omeprazole (PRILOSEC) 20 mg Oral Capsule, Delayed Release(E.C.) Take 1 Cap by mouth daily. 63 Cap 0 ??? oxybutynin (DITROPAN-XL) 10 mg Oral Tablet Extended Rel 24 hr Take 1 Tab by mouth 2 times daily. 60 Tab 2 ??? sulfamethoxazole-trimethoprim (BACTRIM DS) 800-160 mg Oral Tablet Take 1 Tab by mouth every 12 hours for 10 days. 20 Tab 0 No facility-administered encounter medications on file as of 01/23/2019. See time date stamps in the EMR for other pertinent history components reviewed as part of today's encounter. [facility] Documentation Medication Compliance: Non-compliant some of the time Understanding of Current Medications: Fair Medication Compliance Barriers: None or N/A Self-Management Tools: Home glucometer, Home blood pressure monitoring Self-Management Ability: Poor Willingness to Adopt Healthy Behaviors: Poor Potential Barriers to completing treatment plans today: No significant barriers [facility] Flowsheet was completed/reviewed as part of today's visit. Educated patient regarding the diagnosis, medication/treatment, goals, self- management tools and instructions based on their care plan. They verbalized understanding of the education given on the After Visit Summary [AVS] for today's visit. A copy of the AVS was provided either in writing and/or via [employer]. A new medicine was prescribed during this office visit. I did discuss the reason for prescribing this new medication. I also informed of possible likely side effects, but also encouraged them to readthe medication insert that will accompany their prescription and encouraged them to discuss any questions about the insert with their pharmacist. I instructed them to call if having side effects or possible allergic reaction after taking. I also discussed the risk of stopping the medication or deviating from prescribing instructions. Dosing instructions are present on the AVS and they are aware. I inquired of any questions and answered accordingly. Assessment Diagnoses and all orders for this visit: Annual physical exam Type 2 diabetes mellitus without complication, without long-term current use of insulin (HCC) (Chronic) - POCT GLYCATED HEMOGLOBIN, TOTAL Cont with glucose monitoring Visit for screening mammogram - MM MAMMO DIGITAL SCREENING W CAD BILAT; Future Cellulitis of left ankle - sulfamethoxazole-trimethoprim (BACTRIM DS) 800-160 mg Oral Tablet; Take 1 Tab by mouth every 12 hours for 10 days. Dispense: 20 Tab; Refill: 0 Above problems were discussed with patient and [...] 9:00 AM EST Appointment [facility] [address] [place] [address] Jomar Kim MD [address] [place] [address] Scheduled Referrals Name Type Priority Associated Diagnoses Orde r Schedule AMB REFERRAL TO PODIATRY Outpatient Referral Routine Callus of foot Ordered: 01/23/2019 documented as of this encounter Goals Goal Patient Goal Type Associated Problems Recent Progress Patient-Stated? Author Blood Pressure < 140/90 Blood Pressure 110/72(04/27 2:44 PM EDT) No Rachel Rogers, CAROLA BMI (Calculated) < 30 General 50.9( 024 2:44 PM EDT) No Rachel Rogers, CAROLA Eat better, exercise, reach an ideal body weight General No Ni Clinton, cover cutter Healing General On track(2018 9:18 AM EDT) [...] neuropathy weekly. ?? Refer to PCP and/or Supervising Airplane Pilot, Vascular Specialist as indicated. ?? Monitor patient compliance with wound care, diabetes management and proper offloading. Stay Tobacco Free Lifestyle On track(2020 10:23 AM EDT) No Wendy Espinoza LPN HEMOGLOBIN A1C < 7.0 Result Component 5.6(11/09/19 24 3:04 PM EST) No Rachel Rogers RMA documented as of this encounter Procedures Procedure Name Priority Date/Time Associated Diagnosis Comments POCT GLYCATED HEMOGLOBIN, TOTAL Routine 01/23/2019 9:39 AM EDT Type 2 diabetes mellitus without complication, without long-term current use of insulin (HCC) documented in this encounter Results * POCT GLYCATED HEMOGLOBIN, TOTAL (01/23/2019 9:39 AM EDT) Hemoglobin A1C 6.0 % SEP OFFICE Lot Number [id number] SEP OFFICE Expiration Date 09/09/2020 SEP OFFICE SeriAl # SEP OFFICE 01/23/2019 9:39 AM EDT Mehul Schmidt DO POINT OF CARE TEST ORDERABLES F inal Result SEP OFFICE documented in this encounter Visit Diagnoses Diagnosis Annual physical exam- Primary Routine general medical examination at a health care facility Type 2 diabetes mellitus without complication, without long-term current use of insulin (HCC) Visit for screening mammogram Other screening mammogram Cellulitis of left ankle Cellulitis and abscess of leg, except foot Callus of foot Corns and callosities documented in this encounter Care Teams Maxillofacial Surgeon Relationship Specialty Start Date End Date Cristiane Shirley MD [address] [place] [address] PCP - General Family Medicine 08/20/18 12/29/23 Garett Holt MD Internal Medicine-Gastroenterology 12/22/12 Ruiz Stokes MD [address] [place] [address] Internal Medicine-Cardiovascular Disease 07/25/14 Yenny Schwab MD [address] [address] Internal Medicine-Rheumatology 12/11/16 documented as of this encounter
--- OUTSIDE RECORDS SUMMARY | 2024-07-22 16:10 | XMS_ITS | Encounter Summary ---
Author Organization [place] [address] Care Team Providers Care Assembler Installer General Name Role Phone Garett Holt MD Unavailable [phone] Ruiz Stokes MD Unavailable [phone] Yenny Schwab MD Unavailable [phone] Cristiane Shirley MD Primary Care Provider [phone] Reason for Referral * Consultation (Routine) - Closed Specialty Diagnoses / Procedures Referred By Contac t Referred To Contact Wound Care Diagnoses Wound of left lower extremity, initial encounter Cristiane Shirley MD Phone: tel: fax: [facility] [place] [address] [facility] [place] [address] Phone: tel: fax: Referral ID Status Reason Start Date Expiration Date Visits Re quested Visits Authorized [id number] Closed 11/19/2018 01/18/2019 8 8 Reason for Visit * Reason Onset Date Comments Referral 11/05/2018 Encounter Details Date Type Department Care Team (Late st Contact Info) Description 11/05/2018 Telephone [facility] [address] [phone] Cristiane Shirley MD [address] [address] Referral Social History Tobacco Use Types Packs/Day [...] of Assessment Author No 01/06/2018 3:48 PM RINAT Ni Clinton RN * Is the person blind or does he/she have serious difficulty seeing even when wearing glasses? Answer Date of Assessment Author No 01/06/2018 3:48 PM Ni Rubio RN * Does this person have serious difficulty walking or climbing stairs? Answer Date of Assessment Author Yes 01/06/2018 3:48 PM Ni Rubio RN * Does this person have difficulty dressing or bathing? Answer Date of Assessment Author Yes 01/06/2018 3:48 PM Ni Rubio RN * Because of a physical, mental or emotional condition, does this person have difficulty doing errands alone such as visiting a doctor's office or shopping? Answer Date of Assessment Author Yes 01/06/2018 3:48 PM Ni Rubio RN documented as of this encounter Mental Status * Because of a physical, mental or emotional condition, does this person have serious difficulty concentrating, remembering or making decisions? Answer Entry Date Author Yes 01/06/2018 3:48 PM Ni Rubio RN documented in this encounter Miscellaneous Notes * Telephone Encounter - Cristiane Shirley MD - 11/05/2018 5:21 PM EST ordered * Telephone Encounter - PatyDaisy - 11/05/2018 8:59 AM EST Anita, caregiver, states patient needs a referral for a demolition specialist that goes to [facility] office. Patient has ankle open wounds. documented in this encounter Plan of Treatment Upcoming Encounters Date Type Department Care Team (Late st Contact Info) Description 07/29/2024 9:00 AM EST Appointment [facility] [address] [place] [address] Jomar Kim MD [address] [place] [address] Scheduled Referrals Name Type Priority Associated Diagnoses Orde r Schedule AMB REFERRAL TO WOUND CLINIC Outpatient Referral Routine Wound of left lower extremity, initial encounter Ordered: 11/05/2018 documented as of this encounter Goals Goal Patient Goal Type Associated Problems Recent Progress Patient-Stated? Author Blood Pressure < 140/90 Blood Pressure 110/72(2023 2:44 PM EDT) No Rachel Rogers, RMA BMI (Calculated) < 30 General 50.9(04/27/20 24 2:44 PM EDT) No Rachel Rogers RMA Eat better, exercise, reach an ideal body weight General No Ni Clinton, RN Stay Tobacco Free Lifestyle On track( 021 10:23 AM EDT) No Wendy Espinoza LPN HEMOGLOBIN A1C < 7.0 Result Component 5.6( 4 3:04 PM EST) No Rachel Rogers RMA documented as of this encounter Visit Diagnoses Diagnosis Wound of left lower extremity, initial encounter- Primary documented in this encounter Care Teams Assembler Installer General Relationship Specialty Start Date End Date Cristiane Shirley MD [address] [place], [place] [id number] PCP - General Family Medicine 08/20/18 12/29/23 Garett Holt MD Internal Medicine-Gastroenterology 12/22/12 Ruiz Stokes MD [address] [place] [address] Internal Medicine-Cardiovascular Disease 07/25/14 Yenny Schwab MD [address] [facility] Building [address] [place] [address] Internal Medicine-Rheumatology 12/11/16 documented as of this encounter
--- OUTSIDE RECORDS SUMMARY | 2024-07-22 16:10 | XMS_ITS | Encounter Summary ---
Author Organization [place] [address] Care Team Providers Care Lay Health Advocate Name Role Phone Garett Holt MD Unavailable [phone] Ruiz Stokes MD Unavailable [phone] Yenny Schwab MD Unavailable [phone] Cristiane Shirley MD Primary Care Provider Reason for Visit * Reason Comments Medication Refill Encounter Details Date Type Department Care Team (Late st Contact Info) Description 01/04/2019 Refill [facility] [address] [place] [address] Doron Rojas, ELASTIC TAPE INSERTER 100 [place] [address] Medication Refill Social History Tobacco Use Types [...] A DAY. THIS REPLACES LINZESS. 126 Cap 01/04/2019 9 documented in this encounter Plan of Treatment Upcoming Encounters Date Type Department Care Team (Late st Contact Info) Description 07/29/2024 9:00 AM EST Appointment [facility] [address] [place] [address] Jomar Kim MD [address] [place] [address] documented as of this encounter Goals Goal Patient Goal Type Associated Problems Recent Progress Patient-Stated? Author Blood Pressure < 140/90 Blood Pressure 110/72(04/27 2:44 PM EDT) No Rachel Rogers RMA BMI (Calculated) < 30 General 50.9( 024 2:44 PM EDT) No Rachel Rogers RMA Eat better, exercise, reach an ideal body weight General No Ni Clinton, center lead consultant Healing General On track(2018 9:18 AM [...] neuropathy weekly. ?? Refer to PCP and/or Ramp Lead, Vascular Specialist as indicated. ?? Monitor [...] TWICE A DAY. THIS REPLACES LINZESS. Reorder 11/04/2018 01/04/2019 documented as of this encounter Care Teams Lay Health Advocate Relationship Specialty Start Date End Date Cristiane Shirley MD 100 [place] [address] PCP - General Family Medicine 08/20/18 12/29/23 Garett Holt MD Internal Medicine-Gastroenterology 12/22/12 Ruiz Stokes MD [address] [place] [address] Internal Medicine-Cardiovascular Disease 07/25/14 Yenny Schwab MD 651 [facility] Building [address] [place] [address] Internal Medicine-Rheumatology 12/11/16 documented as of this encounter
--- OUTSIDE RECORDS SUMMARY | 2024-07-22 16:10 | XMS_ITS | Encounter Summary ---
Author Organization [place] [address] Care Team Providers Care [employer] Flatbed Truck Driver Name Role Phone Garett Holt MD Unavailable [phone] Ruiz Stokes MD Unavailable [phone] Yenny Schwab MD Unavailable [phone] Cristiane Shirley MD Primary Care Provider Reason for Visit * Reason Onset Date Comments Medicare Annual Wellness 01/19/2019 Pre-Vis it Questionnaire Encounter Details Date Type Department Care Team (Late st Contact Info) Description 01/19/2019 Patient Outreach [facility] 100 [place] [address] Cristiane Shirley MD [address] [place] [address] Medicare Annual Wellness (Pre-Visit Questionnaire) Social History Tobacco Use Types Packs/Day Years [...] Ni Clinton RN documented in this encounter Progress Notes * Fide Nguyen - 01/19/2019 9:13 AM EDT Result of the Medicare Pre-Visit Screening: No answer, 1st attempt documented in this encounter Plan of Treatment Upcoming Encounters Date Type Department Care Team (Late st Contact Info) Description 07/29/2024 9:00 AM EST Appointment [facility] [address] [place] [address] Jomar Kim MD 300 [place] [address] documented as of this encounter Goals Goal Patient Goal Type Associated Problems Recent Progress Patient-Stated? Author Blood Pressure < 140/90 Blood Pressure 110/72(04/27 2:44 PM EDT) No Rachel Rogers RMA BMI (Calculated) < 30 General 50.9( 024 2:44 PM EDT) No Rachel Rogers RMA Eat better, exercise, reach an ideal body weight General No Ni Clinton, geographic information systems manager Healing General On track(2018 9:18 AM [...] neuropathy weekly. ?? Refer to PCP and/or [place] Reverse Winder, Vascular Specialist as indicated. ?? Monitor patient compliance with wound care, diabetes management and proper offloading. Stay Tobacco Free Lifestyle On track(2020 10:23 AM EDT) No Wendy Espinoza LPN HEMOGLOBIN A1C < 7.0 Result Component 5.6(11/09/19 24 3:04 PM EST) No Rachel Rogers RMA documented as of this encounter Visit Diagnoses Not on filedocumented in this encounter Care Teams [employer] Flatbed Truck Driver Relationship Specialty Start Date End Date Cristiane Shirley MD 100 [place] [address] PCP - General Family Medicine 08/20/18 12/29/23 Garett Holt MD Internal Medicine-Gastroenterology 12/22/12 Ruiz Stokes MD [address] [place] [address] Internal Medicine-Cardiovascular Disease 07/25/14 Yenny Schwab MD 651 [facility] Building [address] [place] [address] Internal Medicine-Rheumatology 12/11/16 documented as of this encounter
--- OUTSIDE RECORDS SUMMARY | 2024-07-22 16:10 | XMS_ITS | Encounter Summary ---
Author Organization [place] [address] Care Team Providers Care Motion Study Technician Name Role Phone Garett Holt MD Unavailable [phone] Ruiz Stokes MD Unavailable [phone] Yenny Schwab MD Unavailable [phone] Cristiane Shirley MD Primary Care Provider [phone] Reason for Visit * Reason Comments Diabetes Encounter Details Date Type Department Care Team (Late st Contact Info) Description 03/18/2019 9:00 AM EDT Office Visit [facility] 100 [place] [address] Cristiane Shirley MD 100 [place] [address] Lower extremity edema (Primary Dx); Obesity, Class III, BMI 40-49.9 (morbid obesity) (HCC); Atherosclerosis of aorta (HCC); ETD (Eustachian tube dysfunction), right; PMR (polymyalgia rheumatica) (HCC) Social History Tobacco Use Types Packs/Day [...] Sign Reading Time Taken Comments Blood Pressure 122/78 03/18/2019 9:19 AM EDT Pulse - - Temperature 36.4 ??C (97.6 ??F) 03/18/2019 9:19 AM ED T Respiratory Rate - - Oxygen Saturation - - Inhaled Oxygen Concentration - - Weight 132.9 kg (293 lb) 03/18/2019 9:19 AM EDT Height 157.5 cm (5' 2 ) 03/18/2019 9:19 AM EDT Body Mass Index 53.59 03/18/2019 9:19 AM EDT documented in this encounter Functional [...] mouth 2 times daily. 60 Tab 2 03/18/2019 9 fluticasone propionate (FLONASE) 50 mcg/actuation Nasl [place], SuspensionIndicati ons:ETD (Eustachian tube dysfunction), right INSTILL 1 SPRAY IN EACH NOSTRIL EVERY DAY 16 g 6 03/18/2019 0 fUROsemide (LASIX) 20 mg Oral TabletIndications: Lower extremity edema Take 1 Tab by mouth daily as needed. 30 Tab 2 03/18/2019 9 documented in this encounter Progress Notes * Cristiane Shirley MD - 03/18/2019 9:00 AM EDT Vitals: 03/18/19 0919 BP: 122/78 Temp: 97.6 ??F (36.4 ??C) Weight: 293 lb (132.9 kg) Height: 5' 2 (1.575 m) SUBJECTIVE: Chief Complaint Patient presents with ??? Diabetes HPI: Diabetes: Home reporting of sugars was reviewed at time of visit. patient does not check sugars. Pt denies episodes of hypo or hyperglycemia. Alyssa does not report any new symptoms of possible diabetes sequelae. Exercise - housework / chores / gardening Antiplatelet Therapy - (goals: 75-162 mg/day for [...] and wheezing. Cardiovascular: Positive for leg swelling. Negative for chest pain and palpitations. Gastrointestinal: Negative for abdominal pain, diarrhea and nausea. Genitourinary: Negative. Musculoskeletal: Positive for arthralgias. Skin: Negative for rash. Psychiatric/Behavioral: Negative. OBJECTIVE: Physical Exam Constitutional: She appears well-developed. HENT: Head: Normocephalic. Cardiovascular: Normal rate and regular rhythm. Pulmonary/Chest: Effort normal. She has wheezes. Abdominal: Soft. Bowel sounds are normal. Skin: Skin is warm. Psychiatric: She has a normal mood and affect. Nursing note and vitals reviewed. Assessment Diagnoses and all orders for this visit: Lower extremity edema - fUROsemide (LASIX) 20 mg Oral Tablet; Take 1 Tab by mouth daily as needed. Dispense: 30 Tab; Refill: 2 Obesity, Class III, BMI 40-49.9 (morbid obesity) ([facility]) (Chronic) Recommend diet and ex changes Atherosclerosis of aorta ([facility]) (Chronic) stable ETD (Eustachian tube dysfunction), right - fluticasone propionate (FLONASE) 50 mcg/actuation Nasl [place], Suspension; INSTILL 1 SPRAY IN EACHNOSTRIL EVERY DAY Dispense: 16 g; Refill: 6 PMR (polymyalgia rheumatica) ([facility]) (Chronic) Stable sees rheum. Other orders - oxybutynin (DITROPAN-XL) 10 mg Oral Tablet Extended Rel 24 hr; Take 1 Tab by mouth 2 times daily.Dispense: 60 Tab; Refill: 2 Above problems were discussed with patient and [...] 9:00 AM EST Appointment [facility] [address] [place] [address] Jomar Kim MD [address] [place] [address] documented as of this encounter Goals Goal Patient Goal Type Associated Problems Recent Progress Patient-Stated? Author Blood Pressure < 140/90 Blood Pressure 110/72(04/27 2:44 PM EDT) Rachel Regan RMA BMI (Calculated) < 30 General 50.9( 024 2:44 PM EDT) No Rachel Rogers RMA Eat better, exercise, reach an ideal body weight General No Ni Clinton, dance historian Healing General On track(2018 9:18 AM EDT) [...] weekly. ?? Refer to PCP and/or Lead Burner Apprentice, Vascular Specialist as indicated. ?? Monitor patient compliance with wound care, diabetes management and proper offloading. Stay Tobacco Free Lifestyle On track(2020 10:23 AM EDT) No Wendy Espinoza LPN HEMOGLOBIN A1C < 7.0 Result Component 5.6(11/09/19 24 3:04 PM EST) No Rachel Rogers RMA documented as of this encounter Visit Diagnoses Diagnosis Lower extremity edema- Primary Edema Obesity, Class III, BMI 40-49.9 (morbid obesity) (HCC) Morbid obesity Atherosclerosis of aorta (HCC) Atherosclerosis of aorta ETD (Eustachian tube dysfunction), right PMR (polymyalgia rheumatica) (HCC) Polymyalgia rheumatica documented in this encounter Discontinued Medications Medication Sig Discontinue Reason Start Date End Da te fUROsemide (LASIX) 20 mg Oral Tablet Take 1 Tab by mouth daily as needed. Reorder 08/20/2018 03/18/2019 fluticasone (FLONASE) 50 mcg/actuation Nasl [place], SuspensionIndications:ET D (Eustachian tube dysfunction), right INSTILL 1 SPRAY IN EACH NOSTRIL EVERY DAY Reorder 10/27/2018 03/18/2019 oxybutynin (DITROPAN-XL) 10 mg Oral Tablet Extended Rel 24 hr Take 1 Tab by mouth 2 times daily. Reorder 09/22/2018 03/18/2019 documented as of this encounter Care Teams Motion Study Technician Relationship Specialty Start Date End Date Cristiane Shirley MD [address] [place] [address] PCP - General Family Medicine 08/20/18 12/29/23 Garett Holt MD Internal Medicine-Gastroenterology 12/22/12 Ruiz Stokes MD [address] [place] [address] Internal Medicine-Cardiovascular Disease 07/25/14 Yenny Schwab MD 651 [facility] Building [address] [place] [address] Internal Medicine-Rheumatology 12/11/16 documented as of this encounter
--- OUTSIDE RECORDS SUMMARY | 2024-07-22 16:10 | XMS_ITS | Encounter Summary ---
Author Organization [place] [address] Care Team Providers Care Clinical Manager Name Role Phone Garett Holt MD Unavailable [phone] Ruiz Stokes MD Unavailable [phone] Yenny Schwab MD Unavailable [phone] Cristiane Shirley MD Primary Care Provider [phone] Reason for Visit * Reason Comments Medication Refill Encounter Details Date Type Department Care Team (Late st Contact Info) Description 09/10/[address] [address] Cristiane Shirley MD [address] [place], [place] [id number] Medication Refill Social History Tobacco Use Types [...] 9:00 AM EST Appointment [facility] [address] [place] [address] Jomar Kim MD [address] [place] [address] documented as of this encounter [...] Lifestyle On track( 021 10:23 AM EDT) Wendy Moon LPN HEMOGLOBIN A1C < 7.0 Result Component 5.6( 4 3:04 PM EST) No Rachel Rogers RMA documented as of this encounter Visit Diagnoses Not on filedocumented in this encounter Care Teams Clinical Manager Relationship Specialty Start Date End Date Cristiane Shirley MD [address] [place] [address] PCP - General Family Medicine 08/20/18 12/29/23 Garett Holt MD Internal Medicine-Gastroenterology 12/22/12 Ruiz Stokes MD [address] [place] [address] Internal Medicine-Cardiovascular Disease 07/25/14 Yenny Schwab MD [address] [address] Internal Medicine-Rheumatology 12/11/16 documented as of this encounter
--- OUTSIDE RECORDS SUMMARY | 2024-07-22 16:10 | XMS_ITS | Encounter Summary ---
Author Organization [place] [address] Care Team Providers Care Content Developer Name Role Phone Garett Holt MD Unavailable [phone] Ruiz Stokes MD Unavailable [phone] Yenny Schwab MD Unavailable [phone] Cristiane Shirley MD Primary Care Provider Reason for Visit * Reason Onset Date Comments Medication Refill 09/22/2018 Encounter Details Date Type Department Care Team (Late st Contact Info) Description 09/22/2018 Refill [facility] [address] [place] [address] Cristiane Shirley MD 100 [place] [address] Medication Refill Social History Tobacco Use Types [...] mouth 2 times daily. 60 Tab 2 09/22/2018 03/18/2019 documented in this encounter Miscellaneous Notes * Telephone Encounter - Orin Baker CCMA - 09/22/2018 3:20 PM EST sent * Telephone Encounter - Alyssa Du - 09/22/2018 2:24 PM EST Name of medication for refill: oxybutynin (DITROPAN-XL) 10 mg Oral Tablet Extended Rel 24 hr Did patient contact the pharmacy: No How many days left on hand: 0 Last Fill Date: 08/25/18 Last appt date w/ prescribing provider for this med: 08/20/18 Future appt date w/ prescribing provider: Pharmacy & Location: [facility] [place] [address] [address] [facility] [phone] Additional Notes: documented in this encounter Plan of Treatment Upcoming Encounters Date Type Department Care Team (Late st Contact Info) Description 07/29/2024 9:00 AM EST Appointment [facility] [address] [place] [id number] Jomar Kim MD [address] [place] [address] documented as of this [...] Tab by mouth 2 times daily. Reorder 08/20/2018 09/22/2018 documented as of this encounter Care Teams Content Developer Relationship Specialty Start Date End Date Cristiane Shirley MD [address] [place] [address] PCP - General Family Medicine 08/20/18 12/29/23 Garett Holt MD Internal Medicine-Gastroenterology 12/22/12 Ruiz Stokes MD [address] [place] [id number] Internal Medicine-Cardiovascular Disease 07/25/14 Yenny Schwab MD 651 [facility] Building [address] [place] [address] Internal Medicine-Rheumatology 12/11/16 documented as of this encounter
--- OUTSIDE RECORDS SUMMARY | 2024-07-22 16:10 | XMS_ITS | Encounter Summary ---
Author Organization [place] [address] Care Team Providers Care Plush Dresser Name Role Phone Garett Holt MD Unavailable [phone] Ruiz Stokes MD Unavailable [phone] Yenny Schwab MD Unavailable [phone] Cristiane Shirley MD Primary Care Provider Reason for Visit * Reason Comments Medication Refill Encounter Details Date Type Department Care Team (Late st Contact Info) Description 09/15/[address] [address] Doron Rojas, EXTENDED INSURANCE CLERK [address] [place], [place] [id number] Medication Refill Social History Tobacco Use Types [...] BY MOUTH ONCE DAILY 30 Tab 2 09/15/2018 11/04/2018 documented in this encounter Miscellaneous Notes * Telephone Encounter - Cristiane Shirley MD - 09/15/2018 5:31 PM EST done documented in this encounter Plan of Treatment Upcoming Encounters Date Type Department Care Team (Late st Contact Info) Description 07/29/2024 9:00 AM EST Appointment [facility] [address] [place] [address] Jomar Kim MD 300 [place] [address] documented as of this encounter Goals Goal [...] Start Date End Da te atorvastatin (LIPITOR) 40 mg Oral Tablet TAKE 1/2 TABLET (20MG) BY MOUTH ONCE DAILY Reorder 07/13/2018 09/15/2018 documented as of this encounter Care Teams Plush Dresser Relationship Specialty Start Date End Date Cristiane Shirley MD 100 [place], [place] [id number] PCP - General Family Medicine 08/20/18 12/29/23 Garett Holt MD Internal Medicine-Gastroenterology 12/22/12 Ruiz Stokes MD [address] [place] [address] Internal Medicine-Cardiovascular Disease 07/25/14 Yenny cShwab MD [address] [address] Internal Medicine-Rheumatology 12/11/16 documented as of this encounter
--- OUTSIDE RECORDS SUMMARY | 2024-07-22 16:10 | XMS_ITS | Encounter Summary ---
Author Organization [place] [address] Care Team Providers Care Manager Hospice Name Role Phone Garett Holt MD Unavailable [phone] Ruiz Stokes MD Unavailable [phone] Yenny Schwab MD Unavailable [phone] Cristiane Shirley MD Primary Care Provider [phone] Reason for Visit * Reason Comments Medication Refill Encounter Details Date Type Department Care Team (Late st Contact Info) Description 10/27/[address] [address] Annalise Oneill MD [address] [place] [address] Medication Refill Social History Tobacco Use [...] Last Filled Start Date End Date fluticasone (FLONASE) 50 mcg/actuation Nasl [place], SuspensionIndicati ons:ETD (Eustachian tube dysfunction), right INSTILL 1 SPRAY IN EACH NOSTRIL EVERY DAY 16 g 6 10/27/2018 9 documented in this encounter Miscellaneous Notes * Telephone Encounter - Cristiane Shirley MD - 10/27/2018 4:00 PM EST done documented in this encounter Plan of Treatment Upcoming Encounters Date Type Department Care Team (Late st Contact Info) Description 07/29/2024 9:00 AM EST Appointment [facility] [address] [place] [address] Jomar Kim MD [address] [place], [place] [address] documented as of this encounter Goals Goal [...] Reason Start Date End Da te fluticasone (FLONASE) 50 mcg/actuation Nasl [place], SuspensionIndications:ETD (Eustachian tube dysfunction), right 1 [place] by Nasal route daily. Reorder 01/06/2018 10/27/2018 documented as of this encounter Care Teams Manager Hospice Relationship Specialty Start Date End Date Cristiane Shirley MD 100 [place], [place] [id number] PCP - General Family Medicine 08/20/18 12/29/23 Garett Holt MD Internal Medicine-Gastroenterology 12/22/12 Ruiz Stokes MD [address] [place] [address] Internal Medicine-Cardiovascular Disease 07/25/14 Yenny Schwab MD 651 [facility] Building [address] [place] [address] Internal Medicine-Rheumatology 12/11/16 documented as of this encounter
--- OUTSIDE RECORDS SUMMARY | 2024-07-22 16:10 | XMS_ITS | Encounter Summary ---
Author Organization [place] [address] Care Team Providers Care Gas Appliance Adjuster Name Role Phone Garett Holt MD Unavailable [phone] Ruiz Stokes MD Unavailable [phone] Yenny Schwab MD Unavailable [phone] Cristiane Shirley MD Primary Care Provider [phone] Reason for Visit * Reason Comments Medication Refill Encounter Details Date Type Department Care Team (Late st Contact Info) Description 09/10/[address] [address] Annalise Oneill MD [address] [place] [address] Medication Refill Social History Tobacco Use [...] 9:00 AM EST Appointment [facility] [facility] [place] [address] Jomar Kim MD 300 [place] [address] documented as of this [...] Rogers, MULU documented as of this encounter Visit Diagnoses Not on filedocumented in this encounter Care Teams Gas Appliance Adjuster Relationship Specialty Start Date End Date Cristiane Shirley MD [address] [place] [address] PCP - General Family Medicine 08/20/18 12/29/23 Garett Holt MD Internal Medicine-Gastroenterology 12/22/12 Ruiz Stokes MD [address] [place] [address] Internal Medicine-Cardiovascular Disease 07/25/14 Yenny Schwab MD [address] [address] Internal Medicine-Rheumatology 12/11/16 documented as of this encounter
--- OUTSIDE RECORDS SUMMARY | 2024-07-22 16:10 | XMS_ITS | Encounter Summary ---
Author Organization [place] [address] Care Team Providers Care Hydramatic Mechanic Name Role Phone Garett Holt MD Unavailable [phone] Ruiz Stokes MD Unavailable [phone] Yenny Schwab MD Unavailable [phone] Cristiane Shirley MD Primary Care Provider Reason for Visit * Reason Onset Date Comments Medication Refill 09/02/2018 Encounter Details Date Type Department Care Team (Late st Contact Info) Description 09/02/2018 Refill [facility] 100 [place] [address] Cristiane Shirley MD [address] [place] [address] Medication Refill Social History Tobacco Use Types [...] Refills Last Filled Start Date End Date linaclotide (LINZESS) 145 mcg Oral CapsuleIndications :Chronic idiopathic constipation Take 1 Cap by mouth before breakfast. 30 Cap 6 09/02/2018 09/14/2019 documented in this encounter Miscellaneous Notes * Telephone Encounter - Daisy Rosas MA - 09/02/2018 1:53 PM EST Done. * Telephone Encounter - Brittanie Amador - 09/02/2018 1:49 PM EST Patient needs a prescription for Linzess to be called in. She was given a sample in the office and it is working very well. documented in this encounter Plan of Treatment Upcoming Encounters Date Type Department Care Team (Late st Contact Info) Description 07/29/2024 9:00 AM EST Appointment [facility] [address] [place] [id number] Jomar Kim MD [address] [place] [address] documented as of this encounter [...] as of this encounter Visit Diagnoses Diagnosis Chronic idiopathic constipation Unspecified constipation documented in this encounter Discontinued Medications Medication Sig Discontinue Reason Start Date End Da te linaclotide (LINZESS) 145 mcg Oral CapsuleIndications:Chroni c idiopathic constipation Take 1 Cap by mouth before breakfast. Reorder 08/20/2018 09/02/2018 documented as of this encounter Care Teams Hydramatic Mechanic Relationship Specialty Start Date End Date Cristiane Shirley MD [address] [place] [address] PCP - General Family Medicine 08/20/18 12/29/23 Garett Holt MD Internal Medicine-Gastroenterology 12/22/12 Ruiz Stokes MD [address] [place] [address] Internal Medicine-Cardiovascular Disease 07/25/14 Yenny Schwab MD 651 [facility] 19 [place] [address] Internal Medicine-Rheumatology 12/11/16 documented as of this encounter
--- OUTSIDE RECORDS SUMMARY | 2024-07-22 16:10 | XMS_ITS | Encounter Summary ---
Author Organization [place] [address] Care Team Providers Care Software Development Test Engineer Name Role Phone Garett Holt MD Unavailable [phone] Ruiz Stokes MD Unavailable [phone] Yenny Schwab MD Unavailable [phone] Cristiane Shirley MD Primary Care Provider [phone] Reason for Visit * Reason Comments Medication Refill Encounter Details Date Type Department Care Team (Late st Contact Info) Description 05/06/[address] [address] Annalise Oneill MD [address] [place] [address] Medication Refill Social History Tobacco Use [...] of Assessment Author No 01/23/2019 9:05 AM EDNitin Murillo CMA * Is the person blind or does he/she have serious difficulty seeing even when wearing glasses? Answer Date of Assessment Author No 01/23/2019 9:05 AM RINAT Nitin Yousif CMA * Does this person have serious [...] Assessment Author No 01/23/2019 9:05 AM Nitin iRder CMA documented as of this encounter Mental Status * Because of a physical, mental or emotional condition, does this person have serious difficulty concentrating, remembering or making decisions? Answer Entry Date Author No 01/23/2019 9:05 AM Nitin Rider CMA documented in this encounter Miscellaneous Notes * Telephone Encounter - Sobia Gutierres CPhT - 05/07/2019 8:11 AM EDT Medication Refill Protocol not available for this medication. Routed to office staff. documented in this encounter Plan of Treatment Upcoming Encounters Date Type Department Care Team (Late st Contact Info) Description 07/29/2024 9:00 AM EST Appointment [facility] [address] [place] [address] Jomar Kim MD [address] [place] [address] documented as of this encounter Goals Goal Patient Goal Type Associated Problems Recent Progress Patient-Stated? Author Blood Pressure < 140/90 Blood Pressure 110/72(04/27 2:44 PM EDT) No Rachel Rogers RMA BMI (Calculated) < 30 General 50.9( 2:44 PM EDT) No Rachel Rogers RMA Eat better, exercise, reach an ideal body weight General No Ni Clinton, bark fitter Healing General On track(2018 9:18 AM EDT) [...] neuropathy weekly. ?? Refer to PCP and/or General Purchasing Agent, Vascular Specialist as indicated. ?? Monitor patient compliance with wound care, diabetes management and proper offloading. Stay Tobacco Free Lifestyle On track(2020 10:23 AM EDT) No Wendy Espinoza LPN HEMOGLOBIN A1C < 7.0 Result Component 5.6(11/09/19 24 3:04 PM EST) No Rachel Rogers RMA documented as of this encounter Visit Diagnoses Not on filedocumented in this encounter Care Teams Software Development Test Engineer Relationship Specialty Start Date End Date Utter, Cristiane J, MD [address] [place] [address] PCP - General Family Medicine 08/20/18 12/29/23 Garett Holt MD Internal Medicine-Gastroenterology 12/22/12 Ruiz Stokes MD [address] [place], [place] [id number] Internal Medicine-Cardiovascular Disease 07/25/14 Yenny Schwab MD [address] [facility] [address] [place] [address] Internal Medicine-Rheumatology 12/11/16 documented as of this encounter
--- OUTSIDE RECORDS SUMMARY | 2024-07-22 16:10 | XMS_ITS | Encounter Summary ---
Author Organization [place] [address] Care Team Providers Care Correction Officer Penitentiary Name Role Phone Garett Holt MD Unavailable [phone] Ruiz Stokes MD Unavailable [phone] Yenny Schwab MD Unavailable [phone] Cristiane Shirley MD Primary Care Provider Reason for Visit * Reason Comments Medication Refill Encounter Details Date Type Department Care Team (Late st Contact Info) Description 03/01/2019 Refill [facility] [address] [place] [address] Doron Rojas, NET DEVELOPER WITH [employer] [address] [place] [address] Medication Refill Social History Tobacco Use Types [...] A DAY. THIS REPLACES LINZESS. 126 Cap 03/01/2019 9 documented in this encounter Plan of Treatment Upcoming Encounters Date Type Department Care Team (Late st Contact Info) Description 07/29/2024 9:00 AM EST Appointment [facility] [address] [place] [address] [address] Jomar Kim MD [address] [place] [address] documented as of this encounter Goals Goal Patient Goal Type Associated Problems Recent Progress Patient-Stated? Author Blood Pressure < 140/90 Blood Pressure 110/72(04/27 2:44 PM EDT) No Rachel Rogers RMA BMI (Calculated) < 30 General 50.9( 024 2:44 PM EDT) No Rachel Rogers RMA Eat better, exercise, reach an ideal body weight General No Ni Clinton, field care manager Healing General On track(2018 9:18 AM [...] neuropathy weekly. ?? Refer to PCP and/or Pit And Auxiliaries Supervisor, Vascular Specialist as indicated. ?? Monitor [...] TWICE A DAY. THIS REPLACES LINZESS. Reorder 01/04/2019 03/01/2019 documented as of this encounter Care Teams Correction Officer Penitentiary Relationship Specialty Start Date End Date Cristiane Shirley MD [address] [place] [address] PCP - General Family Medicine 08/20/18 12/29/23 Garett Holt MD Internal Medicine-Gastroenterology 12/22/12 Ruiz Stokes MD [address] [place], [place] [id number] Internal Medicine-Cardiovascular Disease 07/25/14 Yenny Schwab MD [address] [facility] [address] [place] [address] Internal Medicine-Rheumatology 12/11/16 documented as of this encounter
--- OUTSIDE RECORDS SUMMARY | 2024-07-22 16:10 | XMS_ITS | Encounter Summary ---
Author Organization [place] [address] Care Team Providers Care Prepared Foods Associate Name Role Phone Garett Holt MD Unavailable [phone] Ruiz Stokes MD Unavailable [phone] Yenny Schwab MD Unavailable [phone] Cristiane Shirley MD Primary Care Provider Reason for Visit * Reason Onset Date Comments Medication Refill 09/14/2018 Encounter Details Date Type Department Care Team (Late st Contact Info) Description 09/14/2018 Refill [facility] [address] [place] [address] Cristiane Shirley MD [address] [place] [address] Medication Refill Social History Tobacco Use Types [...] 1 Cap by mouth daily. 63 Cap 09/14/2018 11/04/2018 cholecalciferol, vitamin D3, (VITAMIN D3) 1,000 unit Oral Tablet Take 1 Tab by mouth daily. 64 Tab 09/14/2018 11/04/2018 Cholecalciferol, Vitamin D3, 2,000 unit Oral Tablet Take 1/2 daily 32 Tab 2 09/14/2018 12/03/2018 documented in this encounter Miscellaneous Notes * Telephone Encounter - Daphney Bauer RMA - 09/14/2018 9:45 AM EST Med sent to pharmacy * Telephone Encounter - NewmanDaisy - 09/14/2018 8:56 AM EST Pharmacy calling for refills on Atorvastatin 20mg, Vitamin D 1000 units, and Omeprazole 20mg. documented in this encounter Plan of Treatment Upcoming Encounters Date Type Department Care Team (Late st Contact Info) Description 07/29/2024 9:00 AM EST Appointment [facility] [address] [place] [address] Jomar Kim MD [address] [place] [address] documented as of this encounter [...] Discontinue Reason Start Date End Da te Cholecalciferol, Vitamin D3, 2,000 unit Oral Tablet Take 1/2 daily Reorder 07/01/2017 09/14/2018 VITAMIN D3 1,000 unit Oral Tablet TAKE 1 TABLET BY MOUTH EVERY DAY Reorder 07/13/2018 09/14/2018 omeprazole (PRILOSEC) 20 mg Oral Capsule, Delayed Release(E.C.) TAKE 1 CAPSULE BY MOUTH ONCE DAILY Reorder 07/13/2018 09/14/2018 documented as of this encounter Care Teams Prepared Foods Associate Relationship Specialty Start Date End Date Cristiane Shirley MD [address] [place] [address] PCP - General Family Medicine 08/20/18 12/29/23 Garett Holt MD Internal Medicine-Gastroenterology 12/22/12 Ruiz Stokes MD [address] [place], [place] [id number] Internal Medicine-Cardiovascular Disease 07/25/14 Yenny Schwab MD [address] [facility] 19 [place] [address] Internal Medicine-Rheumatology 12/11/16 documented as of this encounter
--- OUTSIDE RECORDS SUMMARY | 2024-07-22 16:10 | XMS_ITS | Encounter Summary ---
Author Organization [place] [address] Care Team Providers Care Manager Assurance Name Role Phone Garett Holt MD Unavailable [phone] Ruiz Stokes MD Unavailable [phone] Yenny Schwab MD Unavailable [phone] Cristiane Shirley MD Primary Care Provider [phone] Reason for Visit * Reason Comments Medication Refill Encounter Details Date Type Department Care Team (Late st Contact Info) Description 01/04/[address] [address] Annalise Oneill MD [address] [place] [address] Medication Refill Social History Tobacco Use [...] 9:00 AM EST Appointment [facility] [address] [place] [address] Jomar Kim MD [address] [place] [address] documented as of this encounter Goals Goal Patient Goal Type Associated Problems Recent Progress Patient-Stated? Author Blood Pressure < 140/90 Blood Pressure 110/72(04/27 2:44 PM EDT) No Rachel Rogers, MULU BMI (Calculated) < 30 General 50.9( 2:44 PM EDT) No Rachel Rogers RMA Eat better, exercise, reach an ideal body weight General No Ni Clinton, ncqa specialist Healing General On track(2018 9:18 AM EDT) [...] neuropathy weekly. ?? Refer to PCP and/or Prosthetic Makeup Designer, Vascular Specialist as indicated. ?? Monitor patient compliance with wound care, diabetes management and proper offloading. Stay Tobacco Free Lifestyle On track(2020 10:23 AM EDT) Wendy Moon LPN HEMOGLOBIN A1C < 7.0 Result Component 5.6(11/09/19 24 3:04 PM EST) No Rachel Rogers RMA documented as of this encounter Visit Diagnoses Diagnosis Seasonal allergic rhinitis due to pollen Essential hypertension Unspecified essential hypertension Type 2 diabetes mellitus without complication (HCC) documented in this encounter Care Teams Manager Assurance Relationship Specialty Start Date End Date Cristiane Shirley MD [address] [place] [address] PCP - General Family Medicine 08/20/18 12/29/23 Garett Holt MD Internal Medicine-Gastroenterology 12/22/12 Ruiz Stokes MD [address] [place], [place] [id number] Internal Medicine-Cardiovascular Disease 07/25/14 Yenny Schwab MD [address] [place] [id number] Internal Medicine-Rheumatology 12/11/16 documented as of this encounter
--- OUTSIDE RECORDS SUMMARY | 2024-07-22 16:10 | XMS_ITS | Encounter Summary ---
Author Organization [place] [address] Care Team Providers Care School Program Director Name Role Phone Garett Holt MD Unavailable [phone] Ruiz Stokes MD Unavailable [phone] Yenny Schwab MD Unavailable [phone] Cristiane Shirley MD Primary Care Provider [phone] Reason for Visit * Reason Comments Medication Refill Encounter Details Date Type Department Care Team (Late st Contact Info) Description 01/04/[address] [address] Cristiane Shirley MD [address] [place], [place] [id number] Medication Refill Social History Tobacco Use Types [...] 9:00 AM EST Appointment [facility] [address] [place] [address] Jomar Kim MD [address] [place] [address] documented as of this encounter Goals Goal Patient Goal Type Associated Problems Recent Progress Patient-Stated? Author Blood Pressure < 140/90 Blood Pressure 110/72(04/27 2:44 PM EDT) No Rachel Rogers RMA BMI (Calculated) < 30 General 50.9( 2:44 PM EDT) No Rachel Rogers RMA Eat better, exercise, reach an ideal body weight General No Ni Clinton, computer designer Healing General On track(2018 9:18 AM EDT) [...] neuropathy weekly. ?? Refer to PCP and/or Cloth Cutter, Vascular Specialist as indicated. ?? Monitor patient compliance with wound care, diabetes management and proper offloading. Stay Tobacco Free Lifestyle On track(2020 10:23 AM EDT) No Wendy Espinoza LPN HEMOGLOBIN A1C < 7.0 Result Component 5.6(11/09/19 24 3:04 PM EST) No Rachel Rogers RMA documented as of this encounter Visit Diagnoses Not on filedocumented in this encounter Care Teams School Program Director Relationship Specialty Start Date End Date Cristiane Shirley MD [address] [place] [address] PCP - General Family Medicine 08/20/18 12/29/23 Garett Holt MD Internal Medicine-Gastroenterology 12/22/12 Ruiz Stokes MD [address] [place] [id number] Internal Medicine-Cardiovascular Disease 07/25/14 Yenny Schwab MD [address] [place] [id number] Internal Medicine-Rheumatology 12/11/16 documented as of this encounter
--- OUTSIDE RECORDS SUMMARY | 2024-07-22 16:10 | XMS_ITS | Encounter Summary ---
Author Organization [place] [address] Care Team Providers Care Software Business Analyst Name Role Phone Garett Holt MD Unavailable [phone] Ruiz Stokes MD Unavailable [phone] Yenny Schwab MD Unavailable [phone] Cristiane Shirley MD Primary Care Provider Reason for Referral * Consultation (Routine) - Closed Specialty Diagnoses / Procedures Referred By Contalissa bansal Referred To Contact Gastroenterology Diagnoses History of colon polyps Cristiane Shirley MD Phone: tel: fax: Mary Teixeira MD Referral ID Status Reason Start Date Expiration Date Visits Re quested Visits Authorized [id number] Closed 02/11/2019 02/11/2020 99 99 Question Answer Is this referral for colon cancer screening? Yes Reason for Visit * Reason Comments Diabetes Encounter Details Date Type Department Care Team (Late st Contact Info) Description 02/11/2019 10:30 AM EDT Office Visit [facility] [address] [place] [address] Cristiane Shirley MD [address] [place] [id number] Type 2 diabetes mellitus without complication, unspecified whether roasterman insulin use (HCC) (Primary Dx); High cholesterol; Visit for screening mammogram; Temporal arteritis (HCC); History of colon polyps Social History Tobacco Use Types Packs/Day Years [...] Sign Reading Time Taken Comments Blood Pressure 128/82 02/11/2019 10:37 AM EDT Pulse - - Temperature 36.8 ??C (98.2 ??F) 02/11/2019 10:37 AM E DT Respiratory Rate - - Oxygen Saturation - - Inhaled Oxygen Concentration - - Weight 133.8 kg (295 lb) 02/11/2019 10:37 AM EDT Height 157.5 cm (5' 2 ) 02/11/2019 10:37 AM EDT Body Mass Index 53.96 02/11/2019 10:37 AM EDT documented in this encounter Functional [...] Progress Notes * Cristiane Shirley MD - 02/11/2019 10:30 AM EDT Vitals: 02/11/19 1037 BP: 128/82 Temp: 98.2 ??F (36.8 ??C) Weight: 295 lb (133.8 kg) Height: 5' 2 (1.575 m) SUBJECTIVE: [...] pain, diarrhea and nausea. Genitourinary: Negative. Musculoskeletal: Negative. Neurological: Negative. Psychiatric/Behavioral: Negative. OBJECTIVE: Physical Exam Constitutional: She appears well-developed. HENT: Head: Normocephalic. Cardiovascular: Normal rate and regular rhythm. Pulmonary/Chest: Effort normal and breath sounds normal. Abdominal: Soft. Bowel sounds are normal. Neurological: She is alert. Skin: Skin is warm. Psychiatric: She has a normal mood and affect. Nursing note and vitals reviewed. Assessment Diagnoses and all orders for this visit: Type 2 diabetes mellitus without complication, unspecified whether mcfp insulin use (HCC) (Chronic) - IRIS DIABETIC RETINOPATHY EXAM - POCT MICROALBUMIN - COMPREHENSIVE METABOLIC PANEL; Future - TSH REFLEX; Future stable High cholesterol - LIPID SCREEN; Future Visit for screening mammogram - MM MAMMO DIGITAL SCREENING W CAD BILAT; Future Temporal arteritis (HCC) (Chronic) stable History of colon polyps - AMB REFERRAL TO GASTROENTEROLOGY documented in this encounter Miscellaneous Notes * Addendum Note - Obed Galan RN - 02/11/2019 10:30 AM EDTAddended by: OBED GALAN on: 07/09/2019 10:11 AM Modules accepted: Orders documented in this encounter Plan of Treatment Upcoming Encounters Date Type Department Care Team (Late st Contact Info) Description 07/29/2024 9:00 AM EST Appointment [facility] [address] [place], [place] [id number] Jomar Kim MD [address] [place] [address] Scheduled Referrals Name Type Priority Associated Diagnoses Order Schedule AMB REFERRAL TO GASTROENTEROLOGY Outpatient Referral Routine History of colon polyps Ordered: 02/11/2019 documented as of this encounter Goals Goal Patient Goal Type Associated Problems Recent Progress Patient-Stated? Author Blood Pressure < 140/90 Blood Pressure 110/72(04/27 2:44 PM EDT) No Rachel Rogers RMA BMI (Calculated) < 30 General 50.9( 024 2:44 PM EDT) No Rachel Rogers RMA Eat better, exercise, reach an ideal body weight General No Ni Clinton, director clinical pharmacology Healing General On track(2018 9:18 AM EDT) [...] neuropathy weekly. ?? Refer to PCP and/or Biomedical Engineering Director, Vascular Specialist as indicated. ?? Monitor patient compliance with wound care, diabetes management and proper offloading. Stay Tobacco Free Lifestyle On track(2020 10:23 AM EDT) No Wendy Espinoza LPN HEMOGLOBIN A1C < 7.0 Result Component 5.6(11/09/19 3:04 PM EST) No Rachel Rogers RMA documented as of this encounter Procedures Procedure Name Priority Date/Time Associated Diagnosis Comments IRIS DIABETIC RETINOPATHY EXAM Routine 02/11/2019 11:38 AM EDT Type 2 diabetes mellitus without complication, unspecified whether roasterman insulin use (HCC) POCT MICROALBUMIN Routine 02/11/2019 11: 10 AM EDT Type 2 diabetes mellitus without complication, unspecified whether mcfp insulin use (HCC) TSH REFLEX Routine 02/11/2019 11:09 AM EDT Type 2 diabetes mellitus without complication, unspecified whether roasterman insulin use (HCC) LIPID SCREEN Routine 02/11/2019 11:09 AM EDT High cholesterol COMPREHENSIVE METABOLIC PANEL Routine 02/11/2019 11:09 AM EDT Type 2 diabetes mellitus without complication, unspecified whether roasterman insulin use (HCC) documented in this encounter Results * (ABNORMAL) IRIS DIABETIC RETINOPATHY EXAM (02/11/2019 11:38 AM EDT) [facility] Retinopathy Exam Severity ALERT(A) [facility] Right Diabetic Retinopathy None [facility] Right Macular Edema None [facility] Right Other Retina Suspected Glaucoma(A) [facility] Right Eye Image Quality Gradable Image [facility] Left Diabetic Retinopathy None [facility] Left Macular Edema None [facility] Left Other Retina None [facility] Left Eye Image Quality Gradable Image [facility] 02/11/2019 11:3 8 AM EDT 02/11/2019 11:38 AM EDT Impressions [facility] - 02/11/2019 5:11 PM EDT Retinal Study Result for ALYSSA CAMPOS MARY, a 63 y/o, F (: 1955, ) presented to [facility] on 02-11-2019 for a retinal imaging study of the left and right eyes. Based on the findings of the study, the following is recommended for ALYSSA CAMPOS Glaucoma Suspected: Refer patient to Ophthalmology. ? ? ?Advise appointment needed for suspicion of glaucoma 0-3 months or with decline in vision. Interpreting Provider's Comments: ??No comments provided Diagnoses Present: E11.9 - Type 2 diabetes mellitus without complications Right Eye Findings: Negative for Diabetic Retinopathy. Other: Suspected Glaucoma Left Eye Findings: Normal Result. ??Negative for Diabetic Retinopathy. This result was electronically signed by Ronni Trinh MD, , Taxonomy: [id number] on 02-11-2019 09:11:57 [facility] time. NOTE: ??Any pathology noted on this diabetic retinal evaluation should be confirmed by an appropriate ophthalmic examination. us Cristiane Shirley MD OPHTHALMOLOGY SERVICES ORDERAB LES Final Result [facility] [address] [place], [place] [id number] * POCT MICROALBUMIN (02/11/2019 11:10 AM EDT) Microalb, Ur 20 <=20 MG/L SEP OFFICE Lot Number SEP OFFICE Expiration Date SEP OFFICE SeriAl # SEP OFFICE Urine 02/11/2019 11:1 0 AM EDT us Cristiane Shirley MD POINT OF CARE TEST ORDERABLES Final Result Performing Organization Address [facility] Co de Phone Number SEP OFFICE * TSH REFLEX (02/11/2019 11:09 AM EDT) Pathologist [facility] TSH Reflex 1.610 0.270 - 4.200 mcIU/mL 02/11/2019 3:17 PM EDT [facility] [employer] Blood VENOUS BLOOD / Unknown Venipuncture / Unknown 02/11/2019 11:09 AM EDT 02/11/2019 11:09 AM EDT Narrative [facility] - 02/11/2019 3:17 PM EDT Ingestion of min doses of biotin (>5 mg/day) taken within 8 hours of drawing blood sample can interfere with this immunoassay test. us Cristiane Shirley MD CHEMISTRY ORDERABLES Final Res ult Performing Organization Address [facility] Co de Phone Number [facility] [employer] [address] [place] [address] * (ABNORMAL) COMPREHENSIVE METABOLIC PANEL (02/11/2019 11:09 AM EDT) Sodium 141 136 - 145 mmol/L 02/11/2019 3:17 PM EDT [facility] Potassium 3.9 3.5 - 5.0 mmol/L 02/11/2019 3:17 PM EDT [facility] Chloride 102 98 - 107 mmol/L 02/11/2019 3:17 PM EDT [facility] Total CO2 28 22 - 29 mmol/L 02/11/2019 3:17 PM EDT [facility] Anion Gap 11 7 - 16 mmol/L 02/11/2019 3:17 PM EDT [facility] Calcium 10.1 8.8 - 10.4 mg/dL 02/11/2019 3:17 PM EDT [facility] Glucose Lvl 102(H) 82 - 100 mg/dL 02/11/2019 3:17 PM EDT [facility] BUN 12 8 - 23 mg/dL 02/11/2019 3:17 PM EDT [facility] Creatinine 0.76 0.51 - 1.30 mg/dL 02/11/2019 3:17 PM EDT [facility] Albumin 3.9 3.2 - 4.6 gm/dL 02/11/2019 3:17 PM EDT [facility] Total Protein 7.8 6.4 - 8.3 gm/dL 02/11/2019 3:17 PM EDT [facility] Bili Total 0.2 0.1 - 1.3 mg/dL 02/11/2019 3:17 PM EDT [facility] ALT 10 <=41 IU/L 02/11/2019 3:17 PM EDT [facility] AST 19 <=40 IU/L 02/11/2019 3:17 PM EDT [facility] Alk Phos 79 36 - 123 IU/L 02/11/2019 3:17 PM EDT [facility] GFR Afr Am 97 >=60 mL/min/1.7 3 m2 02/11/2019 3:17 PM EDT [facility] GFR Non Afr Am 84 >=60 mL/min/1.7 3 m2 02/11/2019 3:17 PM EDT [facility] Comment: This estimated GFR was calculated [...] VENOUS BLOOD / Unknown Venipuncture / Unknown 02/11/2019 11:09 AM EDT 02/11/2019 11:09 AM EDT us Cristiane Shirley MD CHEMISTRY ORDERABLES Final Res ult [facility] [address] , [place] [address] [facility] [address] [place] [address] * LIPID SCREEN (02/11/2019 11:09 AM EDT) Cholesterol 154 <=200 mg/dL 02/11/2019 3:17 PM EDT [facility] [employer] [facility] Comment: < 200 ?Desirable 200 - 239 ? Borderline High >= 240 ?High Triglyceride 124 <=150 mg/dL 02/11/2019 3:17 PM EDT [facility] [employer] [facility] Comment: < 150 ? Normal 150 - 199 ?Borderline High 200 - 499 ?High ??>= 500 ? Very High HDL 51 >=40 mg/dL 02/11/2019 3:17 PM EDT [employer] Comment: ??> 60 ?Optimal 40 - 60 ?Acceptable ?? < 40 ?Low LDL Calculated 78 <=100 mg/dL 02/11/2019 3:17 PM EDT [facility] [employer] [facility] Comment: < 100 ?Optimal 100 - 129 ? Near or above optimal 130 - 159 ? Borderline High 160 - 189 ? High >= 190 ?Very High Non-HDL-C Calculated 103 <=129 mg/dL 02/11/2019 3:17 PM EDT [employer] Comment: <130 ?Desirable 130-159 Above Desirable 160-189 Borderline High 190-219 High >= 220 ??Very High Fasting Specimen? Yes None 019 3:17 PM EDT [employer] Blood VENOUS BLOOD / Unknown Venipuncture / Unknown 02/11/2019 11:09 AM EDT 02/11/2019 11:09 AM EDT us Cristiane Shirley MD CHEMISTRY ORDERABLES Final Res ult [facility] [address] , [address] [place], [place] [id number] documented in this encounter Visit Diagnoses Diagnosis Type 2 diabetes mellitus without complication, unspecified whether roasterman insulin use (HCC)- Primary High cholesterol Pure hypercholesterolemia Visit for screening mammogram Other screening mammogram Temporal arteritis (HCC) Giant cell arteritis History of colon polyps Personal history of colonic polyps documented in this encounter Care Teams Software Business Analyst Relationship Specialty Start Date End Date Cristiane Shirley MD [address] [place] [address] PCP - General Family Medicine 08/20/18 12/29/23 Garett Holt MD Internal Medicine-Gastroenterology 12/22/12 Ruiz Stokes MD [address] [place] [address] Internal Medicine-Cardiovascular Disease 07/25/14 Yenny Schwab MD [address] [id number] Internal Medicine-Rheumatology 12/11/16 documented as of this encounter
--- OUTSIDE RECORDS SUMMARY | 2024-07-22 16:10 | XMS_ITS | Encounter Summary ---
Author Organization [place] [address] Care Team Providers Care Foundation Relations Manager Name Role Phone Garett Holt MD Unavailable [phone] Ruiz Stokes MD Unavailable [phone] Yenny Schwab MD Unavailable [phone] Cristiane Shirley MD Primary Care Provider Reason for Visit * Reason Comments Medication Refill Encounter Details Date Type Department Care Team (Late st Contact Info) Description 11/04/2018 Refill [facility] [address] [place] [address] Doron Rojas, COOKER LOADER [address] [place] [address] Medication Refill Social History Tobacco Use Types [...] A DAY. THIS REPLACES LINZESS. 126 Cap 11/04/2018 9 documented in this encounter Plan of Treatment Upcoming Encounters Date Type Department Care Team (Late st Contact Info) Description 07/29/2024 9:00 AM EST Appointment [facility] [address] [place] [address] Jomar Kim MD [address] [place] [address] documented as of this encounter Goals [...] on filedocumented in this encounter Care Teams Foundation Relations Manager Relationship Specialty Start Date End Date Cristiane Shirley MD [address] [place] [address] PCP - General Family Medicine 08/20/18 12/29/23 Garett Holt MD Internal Medicine-Gastroenterology 12/22/12 Ruiz Stokes MD [address] [place] [address] Internal Medicine-Cardiovascular Disease 07/25/14 Yenny Schwab MD [address] [facility] [address] [place] [address] Internal Medicine-Rheumatology 12/11/16 documented as of this encounter
--- OUTSIDE RECORDS SUMMARY | 2024-07-22 16:10 | XMS_ITS | Encounter Summary ---
Author Organization [place] [address] Care Team Providers Care Glass Blower Helper Name Role Phone Garett Holt MD Unavailable [phone] Ruiz Stokes MD Unavailable [phone] Yenny Schwab MD Unavailable [phone] Cristiane Shirley MD Primary Care Provider [phone] Reason for Visit * Reason Comments Medication Refill Encounter Details Date Type Department Care Team (Late st Contact Info) Description 09/14/[address] [address] Cristiane Shirley MD [address] [place], [place] [id number] Medication Refill Social History Tobacco Use Types [...] 9:00 AM EST Appointment [facility] [address] [place] [address] Jomar Kim MD [address] [place] [address] documented as of this encounter [...] On track( 021 10:23 AM EDT) Wendy Mono LPN HEMOGLOBIN A1C < 7.0 Result Component 5.6( 4 3:04 PM EST) No Rachel Rogers RMA documented as of this encounter Visit Diagnoses Not on filedocumented in this encounter Care Teams Glass Blower Helper Relationship Specialty Start Date End Date Cristiane Shirley MD [address] [place] [address] PCP - General Family Medicine 08/20/18 12/29/23 Garett Holt MD Internal Medicine-Gastroenterology 12/22/12 Ruiz Stokes MD [address] [place] [address] Internal Medicine-Cardiovascular Disease 07/25/14 Yenny Schwab MD [address] [address] Internal Medicine-Rheumatology 12/11/16 documented as of this encounter
--- OUTSIDE RECORDS SUMMARY | 2024-07-22 16:11 | XMS_ITS | Encounter Summary ---
Author Organization [place] [address] Care Team Providers Care Snowmobile Mechanic Name Role Phone Garett Holt MD Unavailable [phone] Ruiz Stokes MD Unavailable [phone] Yenny Schwab MD Unavailable [phone] Cristiane Shirley MD Primary Care Provider [phone] Reason for Referral * Consultation (Routine) - Closed Specialty Diagnoses / Procedures Referred By Contalissa t Referred To Contact Diagnoses Arthritis Cristiane Shirley MD Phone: tel: fax: Regan Pereira DPM Phone: tel: fax: Referral ID Status Reason Start Date Expiration Date Visits Re quested Visits Authorized [id number] Closed 08/26/2018 08/26/2019 1 99 Encounter Details Date Type Department Care Team (Late st Contact Info) Description 08/26/2018 Orders Only [facility] [address] [place] [address] Fide Moffett, RMA [address] [facility] [address] [place] [address] Arthritis (Primary Dx) Social History Tobacco Use Types [...] 3:48 PM RINAT Ni Clinton RN * Does this person [...] of Assessment Author Yes 01/06/2018 3:48 PM RINAT Ni Clinton RN documented as of this [...] AM EST Appointment [facility] [address] [place] [address] Jomar Kim MD [address] [place] [address] Scheduled Referrals Name Type Priority Associated Diagnoses Orde r Schedule AMB REFERRAL TO PODIATRY Outpatient Referral Routine Arthritis Ordered: 08/26/2018 documented as of this encounter Goals Goal [...] as of this encounter Visit Diagnoses Diagnosis Arthritis- Primary Arthropathy, unspecified, site unspecified documented in this encounter Care Teams Snowmobile Mechanic Relationship Specialty Start Date End Date Cristiane Shirley MD [address] [place] [address] PCP - General Family Medicine 08/20/18 12/29/23 Garett Holt MD Internal Medicine-Gastroenterology 12/22/12 Ruiz Stokes MD [address] [place] [address] Internal Medicine-Cardiovascular Disease 07/25/14 Yenny Schwab MD [address] [address] Internal Medicine-Rheumatology 12/11/16 documented as of this encounter
--- OUTSIDE RECORDS SUMMARY | 2024-07-22 16:11 | XMS_ITS | Encounter Summary ---
Author Organization [place] [address] Care Team Providers Care Supervisor Securities Vault Name Role Phone Garett Holt MD Unavailable [phone] Ruiz Stokes MD Unavailable [phone] Annalise Oneill MD Primary Care Provider [phone] Yenny Schwab MD Unavailable [phone] Reason for Visit * Reason Comments Pain patient is in today with c/o bilat lower leg pain and LBP, she had injury to her LT ankle but she states that is getting better, achey joint pain all over Encounter Details Date Type Department Care Team (Late st Contact Info) Description 03/23/2018 2:40 PM EDT Office Visit [facility] [address] [place] [address] Annalise Oneill MD [address] [place] [address] Myalgia (Primary Dx); Temporal arteritis (HCC) Social History Tobacco Use Types Packs/Day [...] Sign Reading Time Taken Comments Blood Pressure 126/80 03/23/2018 2:54 PM EDT Pulse 80 03/23/2018 2:54 PM EDT Temperature 37 ??C (98.6 ??F) 03/23/2018 2:54 PM EDT Respiratory Rate 16 03/23/2018 2:54 PM EDT Oxygen Saturation - - Inhaled Oxygen Concentration - - Weight 117 kg (258 lb) 03/23/2018 2:54 PM EDT Height 152.4 cm (5') 03/23/2018 2:54 PM EDT Body Mass Index 50.39 03/23/2018 2:54 PM EDT documented in this encounter Functional [...] Refills Last Filled Start Date End Date celecoxib (CELEBREX) 200 mg Oral CapsuleIndications: Myalgia Take 1 Cap by mouth daily for 30 days. 30 Cap 03/23/2018 04/29/2018 documented in this encounter Progress Notes * Annalise Oneill MD - 03/23/2018 2:40 PM EDT Subjective Alyssa Jamil is a 62 y.o. female Subjective Chief Complaint Patient presents with ??? Pain patient is in today with c/o bilat lower leg pain and LBP, she had injury to her LT ankle but she states that is getting better, achey joint pain all over Patient presents as above. Some headache on the right side Intermittent blurred vision Pain in the shoulders Some trouble reaching overhead Pain in the bilateral calf with muscle spasm Some calf swelling Hx of temporal arteritis. Has not followed up with rheumatology - states she cannot afford. Last sed rate 01/06/18 = 61 Crp= 16.05 Blood sugars reported to be around 120-130 Lab Results Component Value Date HGBA1C 6.4 01/06/2018 Review of Systems Constitutional: Negative for chills, fatigue and unexpected weight change. Eyes: Negative for visual disturbance. Respiratory: Negative for cough and shortness of breath. Cardiovascular: Negative for chest pain, palpitations and leg swelling. Gastrointestinal: Negative for abdominal pain, constipation, diarrhea and nausea. Genitourinary: Negative for frequency and hematuria. Musculoskeletal: Positive for arthralgias, back pain, gait problem and myalgias (muscle spasms ). Neurological: Negative for dizziness, numbness and headaches. Objective Objective BP 126/80 Pulse 80 Temp 98.6 ??F (37 ??C) Resp 16 Ht 5' (1.524 m) Wt 258 lb (117 kg) BMI 50.39 kg/m?? Physical Exam Constitutional: She is oriented to person, place, and time. She appears well- developed and well-nourished. Eyes: Conjunctivae are normal. Pupils are equal, round, and reactive to light. Neck: Normal range of motion. Neck supple. No thyromegaly present. Cardiovascular: Normal rate, regular rhythm, normal heart sounds and intact distal pulses. No carotid bruits. Pulmonary/Chest: Effort normal and breath sounds normal. Abdominal: Soft. Bowel sounds are normal. She exhibits no mass. There is no tenderness. Musculoskeletal: She exhibits edema (trace bile) and tenderness (bilateral lower extremities with tenderness to palpation in the calf and quad muscles). Bilateral upper extremities with normal range of motion. Neurological: She is alert and oriented to person, place, and time. She has normal reflexes. Skin: Skin is warm and dry. Psychiatric: She has a normal mood and affect. Judgment normal. Vitals reviewed. Assessment and Plan Alyssa was seen today for pain. Diagnoses and all orders for this visit: Myalgia - SEDIMENTATION RATE AUTOMATED; Future - celecoxib (CELEBREX) 200 mg Oral Capsule; Take 1 Cap by mouth daily for 30 days. Temporal arteritis (HCC) - SEDIMENTATION RATE AUTOMATED; Future patient reluctant to take steroids Will not return to rheum due to cost Will try celebrex for pain control. Patient was advised this would not fix temporal artertis and would not prevent complication of blindness No Follow-up on file. Patient was educated regarding the diagnosis, medication/treatment, goals, self- management tools and instructions based on their care plan. They verbalized full understanding of the education given on the After Visit Summary [AVS] for today's visit. They received a copy of the AVS in writing. A new medicine was prescribed during this [...] instructions are present on the AVS and the they are aware. I inquired of any questions and answered accordingly. Annalise Oneill MD documented in this encounter Miscellaneous Notes * Patient Instructions - Ni Clinton RN - 03/23/2018 2:54 PM EDT Images from the original note were not included. Patient Education Arthritis Arthritis is a term that is commonly used to refer to joint pain or joint disease. There are more than 100 types of arthritis. What are the causes? The most common cause of this condition is wear and tear of a joint. Other causes include: ?? Gout. ?? Inflammation of a joint. ?? An infection of a joint. ?? Sprains and other injuries near the joint. ?? A drug reaction or allergic reaction. In some cases, the cause may not be known. What are the signs or symptoms? The main symptom of this condition is pain in the joint with movement. Other symptoms include: ?? Redness, swelling, or stiffness at a joint. ?? Warmth coming from the joint. ?? Fever. ?? Overall feeling of illness. How is this diagnosed? This condition may be diagnosed with a physical exam and tests, including: ?? Blood tests. ?? Urine tests. ?? Imaging tests, such as MRI, X-rays, or a CT scan. Sometimes, fluid is removed from a joint for testing. How is this treated? Treatment for this condition may involve: ?? Treatment of the cause, if it is known. ?? Rest. ?? Raising (elevating) the joint. ?? Applying cold or hot packs to the joint. ?? Medicines to improve symptoms and reduce inflammation. ?? Injections of a steroid such as cortisone into the joint to help reduce pain and inflammation. Depending on the cause of your arthritis, you may need to make lifestyle changes to reduce stress on your joint. These changes may include exercising more and losing weight. Follow these instructions at home: Medicines ?? Take wyjz-loy-ajyjqxv and prescription medicines only as told by your health care provider. ?? Do not take aspirin to relieve pain if gout is suspected. Activity ?? Rest your joint if told by your health care provider. Rest is important when your disease is active and your joint feels painful, swollen, or stiff. ?? Avoid activities that make the pain worse. It is important to balance activity with rest. ?? Exercise your joint regularly with clruz-tv-[id number] exercises as told by your health care provider. Try doing low-impact exercise, such as: ?? Swimming. ?? Water aerobics. ?? Biking. ?? Walking. Joint Care ?? If your joint is swollen, keep it elevated if told by your health care provider. ?? If your joint feels stiff in the morning, try taking a warm shower. ?? If directed, apply heat to the joint. If you have diabetes, do not apply heat without permissionfrom your health care provider. ?? Put a towel between the joint and the hot pack or heating pad. ?? Leave the heat on the area for 20-30 minutes. ?? If directed, apply ice to the joint: ?? Put ice in a plastic bag. ?? Place a towel between your skin and the bag. ?? Leave the ice on for 20 minutes, 2-3 times per day. ?? Keep all follow-up visits as told by your health care provider. This is important. Contact a health care provider if: ?? The pain gets worse. ?? You have a fever. Get help right away if: ?? You develop severe joint pain, swelling, or redness. ?? Many joints become painful and swollen. ?? You develop severe back pain. ?? You develop severe weakness in your leg. ?? You cannot control your bladder or bowels. This information is not intended to replace advice given to you by your health care provider. Make sure you discuss any questions you have with your health care provider. Document Released: 10/02/2005 Document Revised: 01/30/2017 Document Reviewed: 11/20/2015 [employer] Patient Education ?? 2018 [employer] documented in this encounter Plan of Treatment Upcoming Encounters Date Type Department Care Team (Late st Contact Info) Description 07/29/2024 9:00 AM EST Appointment [facility] [address] [place] [address] Jomar Kim MD [address] [place] [address] documented as of this encounter Goals Goal Patient Goal Type Associated Problems Recent Progress Patient-Stated? Author Blood Pressure < 140/90 Blood Pressure 110/72(2023 2:44 PM EDT) No Rachel Rogers RMA BMI (Calculated) < 30 General 50.9(04/27/20 2:44 PM EDT) No Rogers, Rachel Liv, RMA Eat better, exercise, reach an ideal body weight General No Ni Clinton, RN Stay Tobacco Free Lifestyle On track( 021 10:23 AM EDT) No Wendy Espinoza LPN HEMOGLOBIN A1C < 7.0 Result Component 5.6( 4 3:04 PM EST) No Rachel Rogers MULU documented as of this encounter Results * (ABNORMAL) SEDIMENTATION RATE AUTOMATED (03/31/2018 11:09 AM EDT) Sed Rate 46(H) 0 - 30 mm/hr 03/31/2018 11:20 AM EDT [facility] Blood VENOUS BLOOD / Unknown Venipuncture / Unknown 03/31/2018 11:09 AM EDT 03/31/2018 11:09 AM EDT us Annalise Oneill MD HEMATOLOGY ORDERABLES Final R esult [facility] [address] [place] [address] documented in this encounter Visit Diagnoses Diagnosis Myalgia- Primary Mylagia and myositis, unspecified Temporal arteritis (HCC) Giant cell arteritis documented in this encounter Care Teams Supervisor Securities Vault Relationship Specialty Start Date End Date Annalise Oneill MD [address] [place] [address] PCP - General Family Medicine 11/19/16 08/19/18 Garett Holt MD Internal Medicine-Gastroenterology 12/22/12 Ruiz Stokes MD [address] [place] [address] [place] [address] Internal Medicine-Cardiovascular Disease 07/25/14 Yenny Schwab MD [address] [place] [id number] Internal Medicine-Rheumatology 12/11/16 documented as of this encounter
--- OUTSIDE RECORDS SUMMARY | 2024-07-22 16:11 | XMS_ITS | Encounter Summary ---
Author Organization [place] [address] Care Team Providers Care Diffuser Operator Name Role Phone Garett Holt MD Unavailable [phone] Ruiz Stokes MD Unavailable [phone] Annalise Oneill MD Primary Care Provider [phone] Yenny Schwab MD Unavailable [phone] Encounter Details Date Type Department Care Team (Latest Contact Info) Description 05/27/2018 2:09 PM EDT - 05/27/2018 11:59 PM EDT Hospital Encounter [facility] [address] [address] Type 2 diabetes mellitus without complication, without long-term current use of insulin (HCC); Temporal arteritis (HCC) Discharge Disposition: Home or Self Care [...] EST Appointment [facility] [address] [place] [address] Jomar Kim MD [address] [place] [address] documented as of this encounter [...] Associated Diagnosis Comments LIPID PANEL REFLEX Routine 05/27/2018 2: 10 PM EDT Type 2 diabetes mellitus without complication, without long-term current use of insulin (HCC) TSH REFLEX Routine 05/27/2018 2:10 PM EDT Type 2 diabetes mellitus without complication, without long-term current use of insulin (HCC) SEDIMENTATION RATE AUTOMATED Routine 05/27/2018 2:10 PM EDT Temporal arteritis (HCC) CBC WITH DIFF Routine 05/27/2018 2:10 PM EDT Type 2 diabetes mellitus without complication, without long-term current use of insulin (HCC) C-REACTIVE PROTEIN Routine 05/27/2018 2: 10 PM EDT Temporal arteritis (HCC) HEMOGLOBIN A1C Routine 05/27/2018 2:10 PM EDT Type 2 diabetes mellitus without complication, without long-term current use of insulin (HCC) COMPREHENSIVE METABOLIC PANEL Routine 05/27/2018 2:10 PM EDT Type 2 diabetes mellitus without complication, without long-term current use of insulin (HCC) documented in this encounter Results * (ABNORMAL) C-REACTIVE PROTEIN (05/27/2018 2:10 PM EDT) CRP 15.18(H) <=5.00 mg/L 05/27/2018 7:[address] [facility], [facility] Blood Venipuncture / Unknown 05/27/2018 2:10 PM EDT 05/27/2018 2:10 PM EDT us Annalise Oneill MD CHEMISTRY ORDERABLES Final Re sult Performing Organization Address City/[facility] Co de Phone Number [facility] [address] [facility] , [place] [address] * (ABNORMAL) SEDIMENTATION RATE AUTOMATED (05/27/2018 2:10 PM EDT) Sed Rate 71(H) 0 - 30 mm/hr 05/27/2018 7:[address] [facility] Blood Venipuncture / Unknown 05/27/2018 2:10 PM EDT 05/27/2018 2:10 PM EDT us Annalise Oneill MD HEMATOLOGY ORDERABLES Final R esult Performing Organization Address [facility] Co de Phone Number [facility] [address] [facility] , [place] [address] * (ABNORMAL) LIPID PANEL REFLEX (05/27/2018 2:10 PM EDT) Cholesterol 199 <=200 mg/dL 05/27/2018 7:09 PM EDT [facility] Comment: < 200 ?Desirable 200 - 239 ? Borderline High >= 240 ?High Triglyceride 131 <=150 mg/dL 05/27/2018 7:09 PM EDT [facility] Comment: < 150 ? Normal 150 - 199 ?Borderline High 200 - 499 ?High ??>= 500 ? Very High HDL 61 >=40 mg/dL 05/27/2018 7:09 PM EDT [facility] Comment: ??> 60 ?Optimal 40 - 60 ?Acceptable ?? < 40 ?Low LDL Calculated 112(H) <=100 mg/dL 05/27/2018 7:09 PM EDT [facility] Non-HDL-C Calculated 138(H) <=129 mg/dL 05/27/2018 7:09 PM EDT [facility] Comment: <130 ?Desirable 130-159 Above Desirable 160-189 Borderline High 190-219 High >= 220 ??Very High Blood Venipuncture / Unknown 05/27/2018 2:10 PM EDT 05/27/2018 2:10 PM EDT us Annalise Oneill MD CHEMISTRY ORDERABLES Final Re sult [facility] [address] [facility] [facility] , [place] [address] * (ABNORMAL) COMPREHENSIVE METABOLIC PANEL (05/27/2018 2:10 PM EDT) Sodium 136 136 - 145 mmol/L 05/27/2018 7:09 PM EDT [facility] Potassium 4.0 3.5 - 5.0 mmol/L 05/27/2018 7:09 PM EDT [facility] Chloride 97(L) 98 - 107 mmol/L 05/27/2018 7:09 PM EDT [facility] Total CO2 28 22 - 29 mmol/L 05/27/2018 7:09 PM EDT [facility] Anion Gap 11 7 - 16 mmol/L 05/27/2018 7:09 PM EDT [facility] Calcium 10.3(H) 8.8 - 10.2 mg/dL 05/27/2018 7:09 PM EDT [facility] Glucose Lvl 83 82 - 100 mg/dL 05/27/2018 7:09 PM EDT [facility] BUN 17 8 - 23 mg/dL 05/27/2018 7:09 PM EDT [facility] Creatinine 0.74 0.51 - 1.30 mg/dL 05/27/2018 7:09 PM EDT [facility] Albumin 4.2 3.2 - 4.6 gm/dL 05/27/2018 7:09 PM EDT [facility] Total Protein 7.8 6.4 - 8.3 gm/dL 05/27/2018 7:09 PM EDT [facility], [facility] Bili Total 0.2 0.1 - 1.3 mg/dL 05/27/2018 7:[address] [facility], [facility] ALT 15 <=41 IU/L 05/27/2018 7:09 PM EDT [facility], [facility] AST 16 <=40 IU/L 05/27/2018 7:[address] [facility], [facility] Alk Phos 93 35 - 104 IU/L 05/27/2018 7:09 PM EDT [facility], [facility] GFR Afr Am 100 >=60 mL/min/1.7 3 m2 05/27/2018 7:09 PM EDT [facility] GFR Non Afr Am 87 >=60 mL/min/1.7 3 m2 05/27/2018 7:09 PM EDT [facility] Comment: This estimated GFR was calculated [...] in nutritional status or muscle mass. Blood Venipuncture / Unknown 05/27/2018 2:10 PM EDT 05/27/2018 2:10 PM EDT us Annalise Oneill MD CHEMISTRY ORDERABLES Final Re sult [facility] [address] [facility] , [place] [address] [facility] [address] [place] [address] * (ABNORMAL) HEMOGLOBIN A1C (05/27/2018 2:10 PM EDT) [facility] Hgb A1C 5.8(H) 4.2 - 5.6 % 05/27/2018 8:[address] [facility], [facility] Est. Avg Glucose 120 mg/dL 05/27/2018 8:11 PM EDT [facility] Blood Venipuncture / Unknown 05/27/2018 2:10 PM EDT 05/27/2018 2:[address] [facility] - 05/27/2018 8:11 PM EDT REFERENCE RANGE: Normal: 4.0-5.6% Pre-diabetes: 5.7-6.4% Provisional diagnosis of diabetes: >6.4% Hgb F>10% and anything which shortens red cell survival, such as hemolytic anemia, or unstable hemoglobin variants such as HbSS, HbSC, or HbCC, will lower the HbA1c value associated with a given level of glycemic control. ? Annalise Oneill MD CHEMISTRY ORDERABLES Final Re sult Performing Organization Address [facility] Co de Phone Number [facility] [address] , [place] [address] * TSH REFLEX (05/27/2018 2:10 PM EDT) Pathologist [facility] TSH Reflex 1.590 0.270 - 4.200 mcIU/mL 05/27/2018 7:[address] [facility] Blood Venipuncture / Unknown 05/27/2018 2:10 PM EDT 05/27/2018 2:[address] [facility] - 05/27/2018 7:09 PM EDT Ingestion of min doses of biotin (>5 mg/day) taken within 8 hours of drawing blood sample can interfere with this immunoassay test. Annalise Oneill MD CHEMISTRY ORDERABLES Final Re sult Performing Organization Address [facility] Co de Phone Number [facility] [address] [facility] , [place] [address] * (ABNORMAL) CBC WITH DIFF (05/27/2018 2:10 PM EDT) Pathologist [facility] WBC 11.0(H) 3.7 - 10.3 x10(3)/[facility] 05/27/2018 6:[address] [facility] RBC 4.31 3.90 - 5.20 x10(6)/[facility] 05/27/2018 6:43 PM EDT [facility] Hgb 11.3 11.2 - 15.7 g/dL 05/27/2018 6:43 PM EDT [facility] Hct 38.9 34.0 - 45.0 % 05/27/2018 6:43 PM EDT [facility] MCV 90.3 79.0 - 98.0 fL 05/27/2018 6:43 PM EDT [facility] MCH 26.2 26.0 - 32.0 pg 05/27/2018 6:43 PM EDT [facility] MCHC 29.0(L) 30.7 - 35.5 g/dL 05/27/2018 6:43 PM EDT [facility] RDW 15.4(H) <=14.9 % 05/27/2018 6:43 PM EDT [facility] Platelet 301 155 - 369 x10(3)/[facility] 05/27/2018 6:43 PM EDT [facility] MPV 10.3 8.8 - 12.5 fL 05/27/2018 6:43 PM EDT [facility] Neut Percent 67.0 % 05/27/2018 6:43 PM EDT [facility] Comment:Neutrophils equals s egs plus bands Imm Gran% 0.6 % 05/27/2018 6:43 PM EDT [facility] Comment:Automated count of m etamyelocytes, myelocytes and promyelocytes. Lymph Percent 20.0 % 05/27/2018 6:43 PM EDT [facility] [place] Percent 9.6 % 05/27/2018 6:43 PM EDT [facility] Eos Percent 2.4 % 05/27/2018 6:43 PM EDT [facility] Baso Percent 0.4 % 05/27/2018 6:43 PM EDT [facility] Neut # 7.4(H) 1.6 - 6.1 x10(3)/[facility] 05/27/2018 6:43 PM EDT [facility] Comment:Neutrophils equals s egs plus bands IMMGRAN# 0.1 0.0 - 0.1 x10(3)/[facility] 05/27/2018 6:43 PM EDT [facility] Comment:Automated count of m etamyelocytes, myelocytes and promyelocytes. An absolute IG <0.1 is reported as 0.0. Lymph # 2.2 1.2 - 3.9 x10(3)/[facility] 05/27/2018 6:43 PM EDT [facility] [employer] [place] # 1.1(H) 0.3 - 0.9 x10(3)/[facility] 05/27/2018 6:43 PM EDT [facility] Eos# 0.3 0.0 - 0.5 x10(3)/[facility] 05/27/2018 6:43 PM EDT [facility] [employer] Baso # 0.0 0.0 - 0.1 x10(3)/[facility] 05/27/2018 6:43 PM EDT [facility] Blood Venipuncture / Unknown 05/27/2018 2:10 PM EDT 05/27/2018 2:10 PM EDT Annalise Oneill MD HEMATOLOGY ORDERABLES Final R esult [facility] [address] [facility], [address] [place] [id number] documented in this encounter Visit Diagnoses Diagnosis Type 2 diabetes mellitus without complication, without long-term current use of insulin (HCC) Temporal arteritis (HCC) Giant cell arteritis documented in this encounter Care Teams Diffuser Operator Relationship Specialty Start Date End Date Annalise Oneill MD [address] [place] [address] PCP - General Family Medicine 11/19/16 08/19/18 Garett Holt MD Internal Medicine-Gastroenterology 12/22/12 Ruiz Stokes MD [address] [place] [address] Internal Medicine-Cardiovascular Disease 07/25/14 Yenny Schwab MD [address] [facility] [address] [place] [address] Internal Medicine-Rheumatology 12/11/16 documented as of this encounter
--- OUTSIDE RECORDS SUMMARY | 2024-07-22 16:11 | XMS_ITS | Encounter Summary ---
Author Organization [facility] [place] [address] Care Team Providers Care Hide Cleaner Name Role Phone Garett Holt MD Unavailable [phone] Ruiz Stokes MD Unavailable [phone] Annalise Oneill MD Primary Care Provider Yenny Schwab MD Unavailable [phone] Encounter Details Date Type Department Care Team (Late st Contact Info) Description 05/27/2018 Orders Only [facility] [address] [place] [address] Bridget Gao, [facility] [address] [place] [address] Chest pain at rest; Temporal arteritis (HCC); PMR (polymyalgia rheumatica) ([facility]) Social History Tobacco Use Types Packs/Day Years [...] End Date predniSONE (DELTASONE) 20 mg Oral TabletIndications:C hest pain at rest,Temporal arteritis (HCC),PMR (polymyalgia rheumatica) (HCC) 3 tab daily for 3 days then 2 tab daily for 3 days then 1 tab daily for 3 days then 1/2 tab daily for 3 days. 20 Tab 05/27/2018 08/20/2018 documented in this encounter Plan of Treatment Upcoming Encounters Date Type Department Care Team (Late st Contact Info) Description 07/29/2024 9:00 AM EST Appointment [facility] [address] [place] [address] Jomar Kmi MD [address] [place] [address] documented as of this encounter [...] as of this encounter Visit Diagnoses Diagnosis Chest pain at rest Chest pain, unspecified Temporal arteritis (HCC) Giant cell arteritis PMR (polymyalgia rheumatica) (HCC) Polymyalgia rheumatica documented in this encounter Discontinued Medications Medication Sig Discontinue Reason Start Date End Da te predniSONE (DELTASONE) 20 mg Oral TabletIndications:Chest pain at rest,Temporal arteritis (HCC),PMR (polymyalgia rheumatica) (HCC) 3 tab daily for 3 days then 2 tab daily for 3 days then 1 tab daily for 3 days then 1/2 tab daily for 3 days. Reorder 05/27/2018 05/27/2018 documented as of this encounter Care Teams Hide Cleaner Relationship Specialty Start Date End Date Annalise Oneill MD [address] [place] [address] [place] [address] PCP - General Family Medicine 11/19/16 08/19/18 Garett Holt MD Internal Medicine-Gastroenterology 12/22/12 Ruiz Stokes MD [address] [facility] [place] [id number] Internal Medicine-Cardiovascular Disease 07/25/14 Yenny Schwab MD [address] [place] [address] Internal Medicine-Rheumatology 12/11/16 documented as of this encounter
--- OUTSIDE RECORDS SUMMARY | 2024-07-22 16:11 | XMS_ITS | Encounter Summary ---
Author Organization [place] [address] Care Team Providers Care Linux Server Administrator Name Role Phone Garett Holt MD Unavailable [phone] Riuz Stokes MD Unavailable [phone] Yenny Schwab MD Unavailable [phone] Cristiane Shirley MD Primary Care Provider [phone] Encounter Details Date Type Department Care Team (Latest Contact Info) Description 08/26/2018 1:30 PM EST - 08/26/2018 11:59 PM [facility] Hospital Encounter [facility] X[facility] [address] [place] [address] Left foot pain Discharge Disposition: Home or Self [...] Appointment [facility] [address] [place] [address] Jomar Kim MD [address] [place] [address] documented as of this encounter [...] Priority Date/Time Associated Diagnosis Comments XR FOOT LEFT AP LATERAL AND OBLIQUE Routine 08/26/2018 2:03 PM EST Left foot pain documented in this encounter Results * XR FOOT LEFT AP LATERAL AND OBLIQUE (08/26/2018 2:03 PM EST) Anatomical Region Laterality Modality Foot Radiographic Faby ging 08/26/2018 2:03 PM EST Impressions 08/26/2018 2:52 PM EST 1. Since 2013, progression of tibiotalar osteoarthritis. 2. No acute fracture or dislocation. ?? Narrative 08/26/2018 2:52 PM EST XR FOOT LEFT AP LATERAL AND OBLIQUE. 08/26/2018 2:03 PM CLINICAL HISTORY: M79.672-Pain in left [id number]. 63-year-old with left foot pain for several days. No history of acute trauma. Evaluate. COMPARISONS: Left ankle radiographs dated January 01, 2014. PROCEDURE COMMENTS: Routine imaging per protocol. ? FINDINGS: Progression of the tibiotalar degenerative changes. Specifically, marked osteoarthritic changes with joint space narrowing, articular sclerosis, and hypertrophic spurring. Mild degenerative changes involving the talonavicular joint and the calcaneotalar joints, not significantly changed. Hypertrophic spurring near the insertion site of the Achilles tendon. No acute fracture. No dislocation. No destructive lesions. Mild osteopenia. Procedure Note Bre Stokes MD - 08/26/2018 XR FOOT LEFT AP LATERAL AND OBLIQUE. 08/26/2018 2:03 PM CLINICAL HISTORY: M79.672-Pain in left [id number]-CM. 63-year-old withleft foot pain for several days. No history of acute trauma. Evaluate. COMPARISONS: Left ankle radiographs dated January 01, 2014. PROCEDURE COMMENTS: Routine imaging per protocol. FINDINGS: Progression of the tibiotalar degenerative changes. Specifically, marked osteoarthritic changes with joint space narrowing, articular sclerosis,and hypertrophic spurring. Mild degenerative changes involving thetalonavicular joint and the calcaneotalar joints, not significantly changed.Hypertrophic spurring near the insertion site of the Achilles tendon. No acutefracture. No dislocation. No destructive lesions. Mild osteopenia. IMPRESSION: 1. Since 2013, progression of tibiotalar osteoarthritis. 2. No acute fracture or dislocation. us Cristiane Shirley MD IMG DIAGNOSTIC IMAGING ORDERAB LES Final Result documented in this encounter Visit Diagnoses Diagnosis Left foot pain Pain in limb documented in this encounter Care Teams Linux Server Administrator Relationship Specialty Start Date End Date Cristiane Shirley MD [address] [place] [address] PCP - General Family Medicine 08/20/18 12/29/23 Garett Holt MD Internal Medicine-Gastroenterology 12/22/12 Ruiz Stokes MD [address] [place] [address] Internal Medicine-Cardiovascular Disease 07/25/14 Yenny Schwab MD [address] [id number] Internal Medicine-Rheumatology 12/11/16 documented as of this encounter
--- OUTSIDE RECORDS SUMMARY | 2024-07-22 16:11 | XMS_ITS | Encounter Summary ---
Author Organization [place] [address] Care Team Providers Care Stack Attendant Name Role Phone Garett Holt MD Unavailable [phone] Ruiz Stokes MD Unavailable [phone] Annalise Oneill MD Primary Care Provider [phone] Yenny Schwab MD Unavailable [phone] Encounter Details Date Type Department Care Team (Latest Contact Info) Description 03/31/2018 10:55 AM EDT - 03/31/2018 11:59 PM EDT Hospital Encounter [facility] [address] [facility] [place] [address] Discharge Disposition: Home or Self Care Social [...] [place] [address] Jomar Kim MD [address] [place] [address] documented as of this encounter [...] on filedocumented in this encounter Care Teams Stack Attendant Relationship Specialty Start Date End Date Annalise Oneill MD [address] [place] [address] PCP - General Family Medicine 11/19/16 08/19/18 Garett Holt MD Internal Medicine-Gastroenterology 12/22/12 Ruiz Stokes MD [address] [place] [address] Internal Medicine-Cardiovascular Disease 07/25/14 Yenny Schwab MD [address] [address] Internal Medicine-Rheumatology 12/11/16 documented as of this encounter
--- OUTSIDE RECORDS SUMMARY | 2024-07-22 16:11 | XMS_ITS | Encounter Summary ---
Author Organization [place] [address] Care Team Providers Care Ball Fringe Machine Operator Name Role Phone Garett Holt MD Unavailable [phone] Ruiz Stokes MD Unavailable [phone] Annalise Oneill MD Primary Care Provider [phone] Yenny Schwab MD Unavailable [phone] Reason for Referral * Echo (Routine) - Closed Specialty Diagnoses / Procedures Referred By Ron t Referred To Contact Radiology Diagnoses Chest pain at rest Temporal arteritis (HCC) Procedures EC ECHOCARDIOGRAM COMPLETE W DOPPLER AND COLOR FLOW MAPPING Annalise Oneill MD [address] [place] [phone] Phone: tel: fax: [facility] [address] [place] [address] Phone: tel: Referral ID Status Reason Start Date Expiration Date Visits Re quested Visits Authorized [id number] Closed 05/27/2018 05/27/2020 1 1 Reason for Visit * Echo (Routine) - Closed Specialty Diagnoses / Procedures Referred By Contac t Referred To Contact Radiology Diagnoses Chest pain at rest Temporal arteritis (HCC) Procedures EC ECHOCARDIOGRAM COMPLETE W DOPPLER AND COLOR FLOW MAPPING Annalise Oneill MD [address] [place] [address] Phone: tel: fax: [facility] [address] [place] [address] Phone: tel: Referral ID Status Reason Start Date Expiration Date Visits Re quested Visits Authorized [id number] Closed 05/27/2018 05/27/2020 1 1 Encounter Details Date Type Department Care Team (Latest Contact Info) Description 06/17/2018 9:59 AM EDT - 06/17/2018 11:59 PM EDT Hospital Encounter [facility] [address] [place] [address] Annalise Oneill MD [address] [place] [address] Chest pain at rest; Temporal arteritis (HCC) Discharge Disposition: Home or [...] Author Yes 01/06/2018 3:48 PM EDT Ni Clinton, MATT * Does this person have difficulty dressing [...] 9:00 AM EST Appointment [facility] [address] [place] [address] Jomar Kim MD [address] [place] [address] documented as of this encounter [...] W DOPPLER AND COLOR FLOW MAPPING Routine 06/17/2018 10:50 AM EDT Chest pain at rest Temporal arteritis (HCC) documented in this encounter Results * EC ECHOCARDIOGRAM COMPLETE W DOPPLER AND COLOR FLOW MAPPING (06/17/2018 10:50 AM EDT) Ejection Fraction 55-60 % PYRAMIS Anatomical Region Laterality Modality Electrocardiogra phy 06/17/2018 10:2 3 AM EDT Impressions 06/17/2018 1:44 PM EDT ??CONCLUSIONS ??Normal global left ventricular size, wall thickness, systolic function with no obvious regional wall motion abnormalities. ?Normal right ventricular size and function. ?No significant valve disease Narrative Procedure Note Christophe Wilkes MD - 06/17/2018 IMPRESSION CONCLUSIONS Normal global left ventricular size, wall thickness, systolic functionwith no obvious regional wall motion abnormalities. Normal right ventricular size and function. No significant valve disease us Annalise Oneill MD IMG ECHO ORDERABLES Final Res ult documented in this encounter Visit Diagnoses Diagnosis Chest pain at rest Chest pain, unspecified Temporal arteritis (HCC) Giant cell arteritis documented in this encounter Care Teams Ball Fringe Machine Operator Relationship Specialty Start Date End Date Annalise Oneill MD [address] [place] [phone] PCP - General Family Medicine 11/19/16 08/19/18 Garett Holt MD Internal Medicine-Gastroenterology 12/22/12 Ruiz Stokes MD [address] [place] [address] Internal Medicine-Cardiovascular Disease 07/25/14 Yenny Schwab MD [address] [facility] Building [address] [place] [address] Internal Medicine-Rheumatology 12/11/16 documented as of this encounter
--- OUTSIDE RECORDS SUMMARY | 2024-07-22 16:11 | XMS_ITS | Encounter Summary ---
Author Organization [place] [address] Care Team Providers Care Set Up Mechanic Name Role Phone Garett Holt MD Unavailable [phone] Ruiz Stokes MD Unavailable [phone] Annalise Oneill MD Primary Care Provider [phone] Yenny Schwab MD Unavailable [phone] Reason for Visit * Reason Comments Medication Refill Encounter Details Date Type Department Care Team (Late st Contact Info) Description 03/10/[address] [address] Annalise Oneill MD [address] [place] [address] Medication Refill Social History Tobacco Use [...] Filled Start Date End Date atorvastatin (LIPITOR) 40 mg Oral Tablet TAKE 1/2 TABLET (20MG) BY MOUTH ONCE DAILY 18 Tab 2 03/10/2018 8 omeprazole (PRILOSEC) 20 mg Oral Capsule, Delayed Release(E.C.) TAKE 1 CAPSULE BY MOUTH ONCE DAILY 63 Cap 03/10/2018 8 VITAMIN D3 1,000 unit Oral Tablet TAKE 1 TABLET BY MOUTH EVERY DAY 64 Tab 03/10/2018 8 documented in this encounter Plan of Treatment Upcoming Encounters Date Type Department Care Team (Late st Contact Info) Description 07/29/2024 9:00 AM EST Appointment [facility] [address] [place] [place] [address] Jomar Kim MD [address] [place] [address] documented as of this encounter Goals Goal Patient Goal Type Associated Problems Recent Progress Patient-Stated? Author Blood Pressure < 140/90 Blood Pressure 110/72(2023 2:44 PM EDT) No Rachel Rogers RMA BMI (Calculated) < 30 General 50.9(04/27/20 24 2:44 PM EDT) No Rachel Rogers RMA Eat better, exercise, reach an ideal body weight General No Ni Clinton, MTAT Stay Tobacco Free Lifestyle On track( 021 10:23 AM EDT) No Wendy Espinoza LPN HEMOGLOBIN A1C < 7.0 Result Component 5.6( 4 3:04 PM EST) No Rachel Rogers RMA documented as of this encounter Visit Diagnoses Not on filedocumented in this encounter Discontinued Medications Medication Sig Discontinue Reason Start Date End Da te VITAMIN D3 1,000 unit Oral Tablet TAKE 1 TABLET BY MOUTH EVERY DAY Reorder 01/06/2018 03/10/2018 omeprazole (PRILOSEC) 20 mg Oral Capsule, Delayed Release(E.C.) TAKE 1 CAPSULE BY MOUTH ONCE DAILY Reorder 01/06/2018 03/10/2018 atorvastatin (LIPITOR) 40 mg Oral Tablet TAKE 1/2 TABLET (20MG) BY MOUTH ONCE DAILY Reorder 01/06/2018 03/10/2018 documented as of this encounter Care Teams Set Up Mechanic Relationship Specialty Start Date End Date Annalise Oneill MD [address] [place] [phone] PCP - General Family Medicine 11/19/16 08/19/18 Garett Holt MD Internal Medicine-Gastroenterology 12/22/12 Ruiz Stokes MD [address] [place] [address] Internal Medicine-Cardiovascular Disease 07/25/14 Yenny Schwab MD [address] [place] [address] Internal Medicine-Rheumatology 12/11/16 documented as of this encounter
--- OUTSIDE RECORDS SUMMARY | 2024-07-22 16:11 | XMS_ITS | Encounter Summary ---
Author Organization [place] [address] Care Team Providers Care Crown Ceramist Name Role Phone Garett Holt MD Unavailable [phone] Ruiz Stokes MD Unavailable [phone] Annalise Oneill MD Primary Care Provider Yenny Schwab MD Unavailable [phone] Reason for Visit * Reason Comments Medication Refill Encounter Details Date Type Department Care Team (Late st Contact Info) Description 04/29/[address] [address] Annalise Oneill MD [address] [place] [address] Medication Refill Social History Tobacco Use [...] End Date celecoxib (CELEBREX) 200 mg Oral CapsuleIndications :Myalgia TAKE 1 CAPSULE BY MOUTH ONCE DAILY 30 Cap 04/29/2018 0 documented in this encounter Plan of Treatment Upcoming Encounters Date Type Department Care Team (Late st Contact Info) Description 07/29/2024 9:00 AM EST Appointment [facility] [address] [place] [address] Jomar Kim MD [facility] [address] documented as of [...] 4 3:04 PM EST) No Rachel Rogers RMLeigh documented as of this encounter Visit Diagnoses Diagnosis Myalgia Mylagia and myositis, unspecified documented in this encounter Discontinued Medications Medication Sig Discontinue Reason Start Date End Da te celecoxib (CELEBREX) 200 mg Oral CapsuleIndications:Myalgi a Take 1 Cap by mouth daily for 30 days. Reorder 03/23/2018 04/29/2018 documented as of this encounter Care Teams Crown Ceramist Relationship Specialty Start Date End Date Annalise Oneill MD [address] [place] [phone] PCP - General Family Medicine 11/19/16 08/19/18 Garett Holt MD Internal Medicine-Gastroenterology 12/22/12 Ruiz Stokes MD [address] [place] [address] Internal Medicine-Cardiovascular Disease 07/25/14 Yenny Schwab MD [address] [facility] [address] [place] [address] Internal Medicine-Rheumatology 12/11/16 documented as of this encounter
--- OUTSIDE RECORDS SUMMARY | 2024-07-22 16:11 | XMS_ITS | Encounter Summary ---
Author Organization [place] [address] Care Team Providers Care Wire Technician Name Role Phone Garett Holt MD Unavailable [phone] Ruiz Stokes MD Unavailable [phone] Annalise Oneill MD Primary Care Provider [phone] Yenny Schwab MD Unavailable [phone] Reason for Visit * Reason Onset Date Comments Diabetes 04/09/2018 Encounter Details Date Type Department Care Team (Late st Contact Info) Description 04/09/2018 Telephone [facility] [address] [place] [address] Annalise Oneill MD [address] [place] [address] Diabetes Social History Tobacco Use Types Packs/Day Years [...] encounter Miscellaneous Notes * Telephone Encounter - Wendy Espinoza LPN - 04/09/2018 6:22 PM EDT Pt notified * Telephone Encounter - Annalise Oneill MD - 04/09/2018 4:30 PM EDT Normal foot exams on file If she does not have prior history of foot ulcer or neuropathy insurance will not cover. Will reassess at next visit * Telephone Encounter - Bridget Gao RMA - 04/09/2018 3:43 PM EDT Do you know what dx she has? I dont see anything on her problem list or on monofilament exam? * Telephone Encounter - Mcpherson Daphneyphillip Magana - 04/09/2018 1:34 PM EDT Would like script for diabetic shoes. documented in this encounter Plan of Treatment Upcoming Encounters Date Type Department Care Team (Late st Contact Info) Description 07/29/2024 9:00 AM EST Appointment [facility] [address] [place] [address] Jomar Kim MD [address] [place] [address] documented as of this encounter [...] filedocumented in this encounter Care Teams Wire Technician Relationship Specialty Start Date End Date Annalise Oneill MD [address] [place] [address] [place] [phone] PCP - General Family Medicine 11/19/16 08/19/18 Garett Holt MD Internal Medicine-Gastroenterology 12/22/12 Ruiz Stokes MD [address] [place] [address] Internal Medicine-Cardiovascular Disease 07/25/14 Yenny Schwab MD [address] [facility] Building [address] [place], [place] [phone] Internal Medicine-Rheumatology 12/11/16 documented as of this encounter
--- OUTSIDE RECORDS SUMMARY | 2024-07-22 16:11 | XMS_ITS | Encounter Summary ---
Author Organization [place] [address] Care Team Providers Care Drying Machine Operator Package Yarns Name Role Phone Garett Holt MD Unavailable [phone] Ruiz Stokes MD Unavailable [phone] Annalise Oneill MD Primary Care Provider [phone] Yenny Schwab MD Unavailable [phone] Reason for Visit * Reason Comments Advice Only PHYSICAL MEDICINE TEACHER CONSULT, Rfl by Nohelia Oneill for CP, tachycardia, arm pain Chest Pain Tachycardia Arm Pain * Consultation (Routine) - Closed Specialty Diagnoses / Procedures Referred By Contac t Referred To Contact Internal Medicine-Cardiovascular Disease / Cardiology Diagnoses Consult. Rfl Dr Oneill. cp. heart racing . arm pain.needs echo. lnb Procedures CONSULT Annalise Oneill MD [address] [place] [address] Phone: tel: fax: Ruiz Stokes MD [address] [place] [address] Phone: tel: fax: Referral ID Status Reason Start Date Expiration Date Visits Re quested Visits Authorized [id number] Closed 06/03/2018 05/28/2019 99 99 Encounter Details Date Type Department Care Team (Late st Contact Info) Description 06/03/2018 11:30 AM EDT Office Visit [facility] [address] [address] Ruiz Stokes MD [address] [facility] [place] [address] Chest pain, unspecified type (Primary Dx); Systolic murmur; Encounter for screening colonoscopy; Morbid obesity (HCC); Atypical chest pain; SOB (shortness of breath) Social History Tobacco Use Types Packs/Day Years [...] Sign Reading Time Taken Comments Blood Pressure 124/70 06/03/2018 10:54 AM EDT Pulse 62 06/03/2018 10:54 AM EDT Temperature - - Respiratory Rate - - Oxygen Saturation - - Inhaled Oxygen Concentration - - Weight 122.5 kg (270 lb) 06/03/2018 10:54 AM EDT Height 152.4 cm (5') 06/03/2018 10:54 AM EDT Body Mass Index 52.73 06/03/2018 10:54 AM EDT documented in this encounter Functional [...] documented in this encounter Progress Notes * Ruiz Stokes MD - 06/03/2018 11:30 AM EDT Cardiology Progress Note Patient Name: Alyssa Jamil : 1955 HPI Pt seen in consultation C/o cp off and on for weeks --sx feel sharp and takes her breath away --worse with movement --Hurts to press on chest, feels sore to touch on mid sternum Echo ordered Ekg 05/27 NSR normal ekg No hx of heart dz Morbidly obese Sedentary In a wheel chair [facility] 2014 FINDINGS: LM: Normal LAD: Normal CX; Normal RCA: Dom PDA, normal EF 60% EDP 15 PLAN: Med Mgmt ROS Denies: fever, chills, nausea, vomiting, dizziness, headaches, diarrhea Past Medical History: Diagnosis Date ??? Anemia on iron ??? Ankle swelling ??? Arthritis all over ??? Asthma ??? Cancer (HCC) OVARIAN ??? Clotting disorder (HCC) ??? Diabetes mellitus (HCC) 2014 borderline ??? Fibromyalgia ??? Heartburn nausea after eating ??? Hiatal hernia ??? Hyperlipidemia ??? Hypertension ??? 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 Other and unspecified angina pectoris ??? Shortness of breath ??? Sleep apnea SHOULD WEAR CPAP OR BIPAP PER PATIENT ??? Ulcer Current Outpatient Prescriptions: ??? amLODIPine (NORVASC) 10 mg Oral Tablet, TAKE 1 TABLET BY MOUTH DAILY, Disp: 63 Tab, Rfl: 2 ??? ASPIR-LOW 81 mg Oral Tablet, Delayed Release (E.C.), TAKE 1 TABLET BY MOUTH DAILY, Disp: 63 Tab, Rfl: 2 ??? atorvastatin (LIPITOR) 40 mg Oral Tablet, TAKE 1/2 TABLET (20MG) BY MOUTH ONCE DAILY, Disp: 18 Tab, Rfl: 2 ??? Blood-Glucose Meter Misc Kit, Please fill [...] 0 ??? fluticasone (FLONASE) 50 mcg/actuation Nasl Mar Lin, Suspension, 1 Mar Lin by Nasal route daily., Disp: 1 Bottle, Rfl: 2 ??? fUROsemide (LASIX) 20 mg Oral Tablet, Take 1 Tab by mouth daily as needed., Disp: 30 Tab, Rfl: 2 ??? lisinopril (PRINIVIL;ZESTRIL) 20 mg Oral Tablet, TAKE 1 TABLET BY MOUTH ONCE DAILY, Disp: 63 Tab, Rfl: 2 ??? loratadine (CLARITIN) 10 mg Oral Tablet, TAKE 1 TABLET BY MOUTH DAILY, Disp: 63 Tab, Rfl: 2 ??? metFORMIN (GLUCOPHAGE) 500 mg Oral Tablet, TAKE 1 TABLET BY MOUTH DAILY WITH BREAKFAST, Disp: 63 Tab, Rfl: 2 ??? omeprazole (PRILOSEC) 20 mg Oral Capsule, Delayed Release(E.C.), TAKE 1 CAPSULE BY MOUTH ONCE DAILY, Disp: 63 Cap, Rfl: 0 ??? oxybutynin (DITROPAN-XL) 10 mg Oral Tablet Extended Rel 24 hr, Take 1 Tab by mouth 2 times daily., Disp: 60 Tab, Rfl: 5 ??? predniSONE (DELTASONE) 20 mg Oral Tablet, 3 tab daily for 3 days then 2 tab daily for 3 days then 1 tab daily for 3 days then 1/2 tab daily for 3 days., Disp: 20 Tab, Rfl: 0 ??? VITAMIN D3 1,000 unit Oral Tablet, TAKE 1 TABLET BY MOUTH EVERY DAY, Disp: 64 Tab, Rfl: 0 Social History Social History ??? Marital status: Spouse name: N/A ??? Number of children: 2 ??? Years of education: N/A Occupational History ??? disabled Social History Main Topics ??? Smoking status: Former Smoker Packs/day: 1.50 Years: 12.00 Types: Cigarettes Quit date: 09/08/1985 ??? Smokeless tobacco: Never Used Comment: quit 25 yrs ago ??? Alcohol use No ??? Drug use: No ??? Sexual activity: Yes Partners: Male control/ protection: Post-menopausal Other Topics Concern ??? Not on file Social History Narrative ??? No narrative on file Past Surgical History: Procedure Laterality Date ??? ARTERY BIOPSY Right 01/06/2017 RIGHT TEMPORAL ARTERY BIOPSY ; Surgeon: Christa Chavez MD; Location: [facility] MAIN OR; Service: General ??? CARDIAC CATHETERIZATION [...] Magnesium] Hives and Rash Blisters in Mouth Family History Problem Relation Age of Onset ??? Heart Disease Father ??? Cataracts Father ??? Diabetes Father ??? Cancer Maternal Grandmother ??? Colon Cancer Maternal Grandmother ??? Anesth Problems Neg Hx Objective Vitals: 06/03/18 1054 BP: 124/70 Pulse: 62 Exam: GENERAL APPEARANCE: In no acute distress NECK: No JVD - No Bruit RESPIRATORY: Normal breath sounds bilateral HEART: Normal S1 S2- No S3, S4 No Murmur, rub or gallop VASCULAR: Normal pulses, equal, bilateral ABDOMEN: Soft, nontender, no organomegaly, no distension EXTREMITIES No edema- No cynosis No results found for this visit on 06/03/18. Labs Lab Results Component Value Date CHOLESTEROL 199 05/27/2018 CHOLESTEROL 183 01/06/2018 CHOLESTEROL 232 (H) 11/19/2016 HDL 61 05/27/2018 HDL 54 01/06/2018 HDL 54 11/19/2016 LDLCALC 112 (H) 05/27/2018 LDLCALC 104 (H) 01/06/2018 LDLCALC 158 (H) 11/19/2016 TRIG 131 05/27/2018 TRIG 127 01/06/2018 TRIG 98 11/19/2016 No results found for: INR, PROTIME Lab Results Component Value Date WBC 11.0 (H) 05/27/2018 WBC 9.9 07/01/2017 WBC 8.5 06/26/2017 HGB 11.3 05/27/2018 HGB 10.3 (L) 07/01/2017 HGB 10.4 (L) 06/26/2017 HCT 38.9 05/27/2018 HCT 32.1 (L) 07/01/2017 HCT 31.4 (L) 06/26/2017 MCV 90.3 05/27/2018 MCV 88.2 07/01/2017 MCV 87.1 06/26/2017 PLT 301 05/27/2018 PLT 294 07/01/2017 PLT 276 06/26/2017 Lab Results Component Value Date HGBA1C 5.8 (H) 05/27/2018 HGBA1C 6.4 01/06/2018 HGBA1C 6.0 07/01/2017 Lab Results Component Value Date NA 136 05/27/2018 NA 140 01/06/2018 NA 141 07/01/2017 K 4.0 05/27/2018 K 4.2 01/06/2018 K 3.8 07/01/2017 BUN 17 05/27/2018 BUN 17 01/06/2018 BUN 11 07/01/2017 CALCIUM 10.3 (H) 05/27/2018 CALCIUM 10.1 01/06/2018 CALCIUM 10.3 (H) 07/01/2017 CL 97 (L) 05/27/2018 CL 101 01/06/2018 CL 101 07/01/2017 CO2 28 05/27/2018 CO2 26 01/06/2018 CO2 26 07/01/2017 CREATININE 0.74 05/27/2018 CREATININE 0.79 01/06/2018 CREATININE 0.87 07/01/2017 GLU 83 05/27/2018 GLU 107 (H) 01/06/2018 GLU 108 (H) 07/01/2017 Lab Results Component Value Date ALT 15 05/27/2018 ALT 10 01/06/2018 ALT 11 07/01/2017 AST 16 05/27/2018 AST 18 01/06/2018 AST 22 07/01/2017 ALKPHOS 93 05/27/2018 ALKPHOS 79 01/06/2018 ALKPHOS 72 07/01/2017 BILITOT 0.2 06/22/2012 Assessment Patient Active Problem List Diagnosis Date Noted ??? Morbid obesity (HCC) 03/24/2017 ??? Dizziness 03/14/2017 ??? Type 2 diabetes mellitus without complication (HCC) 03/14/2017 ??? Temporal arteritis (HCC) 01/17/2017 ??? Chronic headache 11/22/2016 ??? History of endometrial cancer 11/15/2015 Had endometrial cancer. She had complete hysterectomy 08/2015. She sees dr Bre Selby at [facility] ??? Endometrial hyperplasia 03/15/2015 ??? Endometrial hyperplasia 03/14/2015 Endometrial biopsy done 03/27/2015. ??? DDD (degenerative disc disease), lumbosacral 12/28/2014 ??? HAMIDA (obstructive sleep apnea) 12/28/2014 ??? Hiatal hernia 08/09/2014 ??? Ventral hernia 2014 ??? Leg pain, right 03/12/2013 ??? SOB (shortness of breath) 03/12/2013 ??? Systolic murmur 03/12/2013 ??? Dysphagia 02/17/2013 ??? Encounter for screening colonoscopy 02/17/2013 ??? Esophageal reflux ??? Osteoarthrosis, unspecified whether generalized or localized, unspecified site Plan Echo ordered per PCP Noncardiac CP Normal cors by [facility] 2014 No further CP evaluation warranted for a cardiac etiology F/U prn Thank you for allowing me to participate in the care of your patients. Please call with any concerns or questions Ruiz Stokes MD [facility] documented in this encounter Miscellaneous Notes * Patient Instructions - Ubaldo MULU Colbert - 06/03/2018 11:30 AM EDT You may be contacted by mail or [...] [address] Jomar Kim MD [address] [place] [address] documented as of this encounter Goals [...] of this encounter Visit Diagnoses Diagnosis Chest pain, unspecified type- Primary Systolic murmur Undiagnosed cardiac murmurs Encounter for screening colonoscopy Special screening for malignant neoplasms, colon Morbid obesity (HCC) Morbid obesity Atypical chest pain Other chest pain SOB (shortness of breath) Shortness of breath documented in this encounter Care Teams Drying Machine Operator Package Yarns Relationship Specialty Start Date End Date Annalise Oneill MD [address] [place] [address] [place] [id number] PCP - General Family Medicine 11/19/16 08/19/18 Garett Holt MD Internal Medicine-Gastroenterology 12/22/12 Ruiz Stokes MD [address] [facility] [place] [address] Internal Medicine-Cardiovascular Disease 07/25/14 Yenny Schwab MD [address] [facility] [address] [place] [address] Internal Medicine-Rheumatology 12/11/16 documented as of this encounter
--- OUTSIDE RECORDS SUMMARY | 2024-07-22 16:11 | XMS_ITS | Encounter Summary ---
Author Organization [place] [address] Care Team Providers Care Folder Machine Adjuster Name Role Phone Garett Holt MD Unavailable [phone] Ruiz Stokes MD Unavailable [phone] Annalise Oneill MD Primary Care Provider [phone] Yenny Schwab MD Unavailable [phone] Encounter Details Date Type Department Care Team (Latest Contact Info) Description 03/23/2018 3:52 PM EDT - 03/23/2018 11:59 PM EDT Hospital Encounter [facility] [address] [place] [address] Myalgia; Temporal arteritis (HCC) Discharge Disposition: Home or [...] Assessment Author No 01/06/2018 3:48 PM EDT iN Clinton RN * Is the person blind or does he/she have serious difficulty seeing even when wearing glasses? Answer Date of Assessment Author No 01/06/2018 3:48 PM EDT Ni Clinton RN * Does this person have serious difficulty walking or climbing stairs? Answer Date of Assessment Author Yes 01/06/2018 3:48 PM EDT Ni Clitnon RN * Does this person have difficulty [...] 9:00 AM EST Appointment [facility] [address] [place] [address] Jomar Kim MD [address] [place] [address] documented as of this encounter [...] Procedure Name Priority Date/Time Associated Diagnosis Comments SEDIMENTATION RATE AUTOMATED Routine 03/31/2018 11:09 AM EDT Myalgia Temporal arteritis (HCC) documented in this encounter Results * (ABNORMAL) SEDIMENTATION RATE AUTOMATED (03/31/2018 11:09 AM EDT) Sed Rate 46(H) 0 - 30 mm/hr 03/31/2018 11:20 AM EDT [facility] Blood VENOUS BLOOD / Unknown Venipuncture / Unknown 03/31/2018 11:09 AM EDT 03/31/2018 11:09 AM EDT us Annalise Oneill MD HEMATOLOGY ORDERABLES Final R esult [facility] [address] [place] [address] documented in this encounter Visit Diagnoses Diagnosis Myalgia Mylagia and myositis, unspecified Temporal arteritis (HCC) Giant cell arteritis documented in this encounter Care Teams Folder Machine Adjuster Relationship Specialty Start Date End Date Annalise Oneill MD [address] [place] [address] PCP - General Family Medicine 11/19/16 08/19/18 Garett Holt MD Internal Medicine-Gastroenterology 12/22/12 Ruiz Stokes MD [address] [place] [address] Internal Medicine-Cardiovascular Disease 07/25/14 Yenny Schwab MD [address] [place] [id number] Internal Medicine-Rheumatology 12/11/16 documented as of this encounter
--- OUTSIDE RECORDS SUMMARY | 2024-07-22 16:11 | XMS_ITS | Encounter Summary ---
Author Organization [place] [address] Care Team Providers Care Story Analyst Name Role Phone Garett Holt MD Unavailable [phone] Ruiz Stokes MD Unavailable [phone] Annalise Oneill MD Primary Care Provider [phone] Yenny Schwab MD Unavailable [phone] Encounter Details Date Type Department Care Team (Late st Contact Info) Description 03/31/2018 - 03/31/2018 10:53 AM EDT [facility] [address] [place] [address] Discharge Disposition: ED Dismiss - Never Arrived Social History Tobacco Use Types Packs/Day Years [...] Discharge Disposition Disposition Code Departure Means Destination ED Dismiss - Never Arrived O ther documented in this encounter Plan of Treatment Upcoming Encounters Date Type Department Care Team (Late st Contact Info) Description 07/29/2024 9:00 AM EST Appointment [facility] [address] [place] [address] Jomar Kim MD [address] [place] [address] documented as of this encounter [...] documented as of this encounter Care Teams Story Analyst Relationship Specialty Start Date End Date Annalise Oneill MD [address] [place] [phone] PCP - General Family Medicine 11/19/16 08/19/18 Garett Holt MD Internal Medicine-Gastroenterology 12/22/12 Ruiz Stokes MD [address] [place] [address] Internal Medicine-Cardiovascular Disease 07/25/14 Yenny Schwab MD [address] [place] [address] Internal Medicine-Rheumatology 12/11/16 documented as of this encounter
--- OUTSIDE RECORDS SUMMARY | 2024-07-22 16:11 | XMS_ITS | Encounter Summary ---
Author Organization [place] [address] Care Team Providers Care Swing Saw Operator Name Role Phone Garett Holt MD Unavailable [phone] Ruiz Stokes MD Unavailable [phone] Annalise Oneill MD Primary Care Provider Yenny Schwab MD Unavailable [phone] Reason for Visit * Reason Comments Medication Refill Encounter Details Date Type Department Care Team (Late st Contact Info) Description 03/24/2018 Refill [facility] [address] [place] [address] Cristiane Shirley MD [address] [place] [address] Medication Refill Social History Tobacco Use Types [...] CAPSULE BY MOUTH TWICE DAILY 60 Cap 03/24/2018 0 documented in this encounter Plan of Treatment Upcoming Encounters Date Type Department Care Team (Late st Contact Info) Description 07/29/2024 9:00 AM EST Appointment [facility] [address] [place] [address] Jomar Kim MD [address] [place] [address] documented as of this encounter [...] te STOOL SOFTENER 100 mg Oral Capsule TAKE 1 CAPSULE BY MOUTH TWICE DAILY Reorder 03/31/2017 03/24/2018 documented as of this encounter Care Teams Swing Saw Operator Relationship Specialty Start Date End Date Annalise Oneill MD [address] [place] [phone] PCP - General Family Medicine 11/19/16 08/19/18 Garett Holt MD Internal Medicine-Gastroenterology 12/22/12 Ruiz Stokes MD [address] [place], [place] [id number] Internal Medicine-Cardiovascular Disease 07/25/14 Yenny Schwab MD [address] [facility] Building [address] [place] [address] Internal Medicine-Rheumatology 12/11/16 documented as of this encounter
--- OUTSIDE RECORDS SUMMARY | 2024-07-22 16:11 | XMS_ITS | Encounter Summary ---
Author Organization [place] [address] Care Team Providers Care Dry Cell And Battery Assembler Name Role Phone Garett Holt MD Unavailable [phone] Ruiz Stokes MD Unavailable [phone] Annalise Oneill MD Primary Care Provider [phone] Yenny Schwab MD Unavailable [phone] Reason for Visit * Reason Comments Medication Refill Encounter Details Date Type Department Care Team (Late st Contact Info) Description 06/19/2018 Refill [facility] [address] [place] [address] Kaur Cameron MD Medication Refill Social History Tobacco Use Types [...] 9:00 AM EST Appointment [facility] [address] [place], [place] [phone] Jomar Kim MD [address] [place] [address] documented as of this encounter [...] on filedocumented in this encounter Care Teams Dry Cell And Battery Assembler Relationship Specialty Start Date End Date Annalise Oneill MD [address] [place] [phone] PCP - General Family Medicine 11/19/16 08/19/18 Garett Holt MD Internal Medicine-Gastroenterology 12/22/12 Ruiz Stokes MD [address] [place] [address] Internal Medicine-Cardiovascular Disease 07/25/14 Yenny Schwab MD [address] [facility] Building [address] [place] [address] Internal Medicine-Rheumatology 12/11/16 documented as of this encounter
--- OUTSIDE RECORDS SUMMARY | 2024-07-22 16:11 | XMS_ITS | Encounter Summary ---
Author Organization [place] [address] Care Team Providers Care Clinical Lab Technologist Name Role Phone Garett Holt MD Unavailable [phone] Ruiz Stokes MD Unavailable [phone] Yenny Schwab MD Unavailable [phone] Cristiane Shirley MD Primary Care Provider [phone] Reason for Referral * Consultation (Routine) - Closed Specialty Diagnoses / Procedures Referred By Contac t Referred To Contact General Surgery Diagnoses Umbilical hernia without obstruction and without gangrene Cristiane Shirley MD Phone: tel: fax: Christa Chavez MD Phone: tel: fax: Referral ID Status Reason Start Date Expiration Date Visits Re quested Visits Authorized [id number] Closed 08/20/2018 08/20/2019 1 99 Reason for Visit * Reason Comments Establish Care Bladder Problem Hernia Allergies sneezing Encounter Details Date Type Department Care Team (Late st Contact Info) Description 08/20/2018 1:00 PM EST Office Visit [facility] [address] [facility] [place] [phone] Cristiane Shirley MD [address] [place] [address] Chronic idiopathic constipation (Primary Dx); Type 2 diabetes mellitus without complication, without long-term current use of insulin (HCC); Umbilical hernia without obstruction and without gangrene; Left foot pain Social History Tobacco Use Types [...] Reading Time Taken Comments Blood Pressure 132/84 08/20/2018 1:29 PM EST Pulse - - Temperature 37.1 ??C (98.7 ??F) 08/20/2018 1:29 PM ES T Respiratory Rate - - Oxygen Saturation - - Inhaled Oxygen Concentration - - Weight 131.1 kg (289 lb) 08/20/2018 1:29 PM EST Height 152.4 cm (5') 08/20/2018 1:29 PM EST Body Mass Index 56.44 08/20/2018 1:29 PM EST documented in this encounter Functional Status * Is the person deaf or does he/she have serious difficulty hearing? Answer Date of Assessment Author No 01/06/2018 3:48 PM Ni Rubio RN * Is the person blind or [...] by mouth 2 times daily. 60 Tab 5 08/20/2018 09/22/2018 linaclotide (LINZESS) 145 mcg Oral CapsuleIndications :Chronic idiopathic constipation Take 1 Cap by mouth before breakfast. 30 Cap 6 08/20/2018 09/02/2018 fUROsemide (LASIX) 20 mg Oral Tablet Take 1 Tab by mouth daily as needed. 30 Tab 2 08/20/2018 03/18/2019 documented in this encounter Progress Notes * Cristiane Shirley MD - 08/20/2018 1:00 PM EST Vitals: 08/20/18 1329 BP: 132/84 Temp: 98.7 ??F (37.1 ??C) TempSrc: Tympanic Weight: 289 lb (131.1 kg) Height: 5' (1.524 m) Chief Complaint Patient presents with ??? Establish Care ??? Bladder Problem ??? Hernia ??? Allergies sneezing Abstract This is a new problem. The current episode started today. The problem occurs constantly. The problem has been unchanged. Associated symptoms include arthralgias. Pertinent negatives include no abdominal pain, coughing, fatigue, fever, nausea or rash. Pt is here today to establish care, bladder problem, hernia pain, and sneezing Diabetes: Home reporting of sugars was reviewed [...] Negative. Respiratory: Negative for cough and wheezing. Gastrointestinal: Negative for abdominal pain, diarrhea and nausea. Genitourinary: Negative. Musculoskeletal: Positive for arthralgias. Skin: Negative for rash. Neurological: Negative. Psychiatric/Behavioral: Negative. Physical Exam Constitutional: She appears well-developed. obese HENT: Head: Normocephalic and atraumatic. Right Ear: External ear normal. Left Ear: External ear normal. Eyes: Conjunctivae are normal. Neck: Neck supple. Cardiovascular: Normal rate and regular rhythm. Pulmonary/Chest: Effort normal. She has no wheezes. Abdominal: Soft. She exhibits no distension. There is no tenderness. Umbilical hernia Musculoskeletal: Left base 4th metatarsal ttp Neurological: She is alert. Skin: Skin is warm. Psychiatric: She has a normal mood and affect. Nursing note and vitals reviewed. See time date stamps in the EMR for other pertient history components reviewed as part of today's encounter. [facility] Documentation Medication Compliance: Compliant all the time Understanding of Current Medications: Good Medication Compliance Barriers: None or N/A Self-Management Tools: Home glucometer Self-Management Ability: Good Willingness to Adopt Healthy Behaviors: Good Potential Barriers to completing treatment plans today: No significant barriers [facility] Flowsheet was completed/reviewed as part of today's visit. Educated patient regarding the diagnosis, medication/treatment, goals, self- management tools and instructions based on their care plan. They verbalized understanding of the education given on the After Visit Summary [AVS] for today's visit. A copy of the AVS was provided either in writing and/or via [employer]. A new medicine was not prescribed on this visit. Assessment Diagnoses and all orders for this visit: Chronic idiopathic constipation - linaclotide (LINZESS) 145 mcg Oral Capsule; Take 1 Cap by mouth before breakfast. Dispense: 30 Cap; Refill: 6 Samples given Type 2 diabetes mellitus without complication, without long-term current use of insulin (HCC) (Chronic) - HEMOGLOBIN A1C; Future - LIPID SCREEN; Future - COMPREHENSIVE METABOLIC PANEL; Future - TSH REFLEX; Future - CBC WITH DIFF; Future stable Umbilical hernia without obstruction and without gangrene - AMB REFERRAL TO GENERAL SURGERY monitor Left foot pain - XR FOOT LEFT AP LATERAL AND OBLIQUE; Future monitor Other orders - fUROsemide (LASIX) 20 mg Oral Tablet; Take 1 Tab by mouth daily as needed. Dispense: 30 Tab; Refill: 2 - oxybutynin (DITROPAN-XL) 10 mg Oral Tablet Extended Rel 24 hr; Take 1 Tab by mouth 2 times daily.Dispense: 60 Tab; Refill: 5 documented in this encounter Plan of Treatment Upcoming Encounters Date Type Department Care Team (Late st Contact Info) Description 07/29/2024 9:00 AM EST Appointment [facility] [address] [facility]. [place], [place] [id number] Jomar Kim MD [address] [place] [address] Scheduled Referrals Name Type Priority Associated Diagnoses Orde r Schedule AMB REFERRAL TO GENERAL SURGERY Outpatient Referral Routine Umbilical hernia without obstruction and without gangrene Ordered: 08/20/2018 documented as of this encounter Goals Goal [...] Date/Time Associated Diagnosis Comments TSH REFLEX Routine 08/20/2018 2:02 PM EST Type 2 diabetes mellitus without complication, without long-term current use of insulin (HCC) CBC WITH DIFF Routine 08/20/2018 2:02 PM EST Type 2 diabetes mellitus without complication, without long-term current use of insulin (HCC) HEMOGLOBIN A1C Routine 08/20/2018 2:02 PM EST Type 2 diabetes mellitus without complication, without long-term current use of insulin (HCC) LIPID SCREEN Routine 08/20/2018 2:02 PM EST Type 2 diabetes mellitus without complication, without long-term current use of insulin (HCC) COMPREHENSIVE METABOLIC PANEL Routine 08/20/2018 2:02 PM EST Type 2 diabetes mellitus without complication, without long-term current use of insulin (HCC) documented in this encounter Results * XR [...] 2:03 PM CLINICAL HISTORY: M79.672-Pain in left [id number]-10-CM. 63-year-old with left foot pain for several [...] 2:03 PM CLINICAL HISTORY: M79.672-Pain in left hejz-ALB-51-CM. 63-year-old withleft foot pain for several days. [...] IMAGING ORDERAB LES Final Result * (ABNORMAL) CBC WITH DIFF (08/20/2018 2:02 PM EST) WBC 11.0(H) 3.7 - 10.3 x10(3)/mcL 08/20/2018 6:59 PM EST [facility] RBC 4.15 3.90 - 5.20 x10(6)/mcL 08/20/2018 6:59 PM EST [facility] Hgb 11.0(L) 11.2 - 15.7 g/dL 08/20/2018 6:59 PM EST [facility] Hct 37.3 34.0 - 45.0 % 08/20/2018 6:59 PM EST [facility] MCV 89.9 79.0 - 98.0 fL 08/20/2018 6:59 PM EST [facility] MCH 26.5 26.0 - 32.0 pg 08/20/2018 6:59 PM EST [facility] MCHC 29.5(L) 30.7 - 35.5 g/dL 08/20/2018 6:59 PM EST [facility] RDW 15.3(H) <=14.9 % 08/20/2018 6:59 PM EST [facility] Platelet 316 155 - 369 x10(3)/mcL 08/20/2018 6:59 PM EST [facility] MPV 10.0 8.8 - 12.5 fL 08/20/2018 6:59 PM EST [facility] Neut Percent 70.1 % 08/20/2018 6:59 PM EST [facility] Comment:Neutrophils equals s egs plus bands Imm Gran% 0.5 % 08/20/2018 6:59 PM EST [facility] Comment:Automated count of m etamyelocytes, myelocytes and promyelocytes. Lymph Percent 17.0 % 08/20/2018 6:59 PM EST [facility] [place] Percent 8.7 % 08/20/2018 6:59 PM EST [facility] Eos Percent 3.2 % 08/20/2018 6:59 PM EST [facility] Baso Percent 0.5 % 08/20/2018 6:59 PM EST [facility] Neut # 7.7(H) 1.6 - 6.1 x10(3)/mcL 08/20/2018 6:59 PM EST [facility] Comment:Neutrophils equals s egs plus bands IMMGRAN# 0.1 0.0 - 0.1 x10(3)/mcL 08/20/2018 6:59 PM EST [facility] Comment:Automated count of m etamyelocytes, myelocytes and promyelocytes. An absolute IG <0.1 is reported as 0.0. Lymph # 1.9 1.2 - 3.9 x10(3)/mcL 08/20/2018 6:59 PM EST [facility] [place] # 1.0(H) 0.3 - 0.9 x10(3)/[facility] 08/20/2018 6:59 PM EST [facility] Eos# 0.4 0.0 - 0.5 x10(3)/mcL 08/20/2018 6:59 PM EST [facility] Baso # 0.1 0.0 - 0.1 x10(3)/[facility] 08/20/2018 6:59 PM EST [facility] Blood VENOUS BLOOD / Unknown Venipuncture / Unknown 08/20/2018 2:02 PM EST 08/20/2018 2:02 PM EST us Cristiane Shirley MD HEMATOLOGY ORDERABLES Final Re sult Performing Organization Address [facility]/ZIP Co de Phone Number [facility] [address] [facility] , [place] [address] * TSH REFLEX (08/20/2018 2:02 PM EST) TSH Reflex 1.670 0.270 - 4.200 mcIU/mL 08/20/2018 7:32 PM EST [facility] Blood VENOUS BLOOD / Unknown Venipuncture / Unknown 08/20/2018 2:02 PM EST 08/20/2018 2:02 PM EST Narrative [facility] - 08/20/2018 7:32 PM EST Ingestion of min doses of biotin (>5 mg/day) taken within 8 hours of drawing blood sample can interfere with this immunoassay test. us Cristiane Shirley MD CHEMISTRY ORDERABLES Final Res ult Performing Organization Address [facility] Co de Phone Number [facility] [address] [facility] , [address] [place] [phone] * (ABNORMAL) COMPREHENSIVE METABOLIC PANEL (08/20/2018 2:02 PM EST) Sodium 136 136 - 145 mmol/L 08/20/2018 7:32 PM EST [facility] Potassium 4.4 3.5 - 5.0 mmol/L 08/20/2018 7:32 PM EST [facility] Chloride 98 98 - 107 mmol/L 08/20/2018 7:32 PM EST [facility] Total CO2 27 22 - 29 mmol/L 08/20/2018 7:32 PM EST [facility] Anion Gap 11 7 - 16 mmol/L 08/20/2018 7:32 PM EST [facility] Calcium 10.2 8.8 - 10.2 mg/dL 08/20/2018 7:32 PM EST [facility] Glucose Lvl 101(H) 82 - 100 mg/dL 08/20/2018 7:32 PM EST [facility] BUN 10 8 - 23 mg/dL 08/20/2018 7:32 PM EST [facility] Creatinine 0.70 0.51 - 1.30 mg/dL 08/20/2018 7:32 PM EST [facility] Albumin 4.0 3.2 - 4.6 gm/dL 08/20/2018 7:32 PM EST [facility] Total Protein 7.7 6.4 - 8.3 gm/dL 08/20/2018 7:32 PM EST [facility] Bili Total 0.2 0.1 - 1.3 mg/dL 08/20/2018 7:32 PM EST [facility] ALT 14 <=41 IU/L 08/20/2018 7:32 PM EST [facility] AST 18 <=40 IU/L 08/20/2018 7:32 PM EST [facility] Alk Phos 94 35 - 104 IU/L 08/20/2018 7:32 PM EST [facility] GFR Afr Am 107 >=60 mL/min/1.7 3 m2 08/20/2018 7:32 PM EST [facility] GFR Non Afr Am 93 >=60 mL/min/1.7 3 m2 08/20/2018 7:32 PM EST [facility] Comment: This estimated GFR was [...] VENOUS BLOOD / Unknown Venipuncture / Unknown 08/20/2018 2:02 PM EST 08/20/2018 2:02 PM EST us Cristiane Shirley MD CHEMISTRY ORDERABLES Final Res ult [facility] [address] [facility] , [place] [address] [facility] [address] [place] [address] * (ABNORMAL) LIPID SCREEN (08/20/2018 2:02 PM EST) [facility] Signature Cholesterol 196 <=200 mg/dL 08/20/2018 7:32 PM EST [facility] Comment: < 200 ?Desirable 200 - 239 ? Borderline High >= 240 ?High Triglyceride 182(H) <=150 mg/dL 08/20/2018 7:32 PM EST [facility] Comment: < 150 ? Normal 150 - 199 ?Borderline High 200 - 499 ?High ??>= 500 ? Very High HDL 56 >=40 mg/dL 08/20/2018 7:32 PM EST [facility] Comment: ??> 60 ?Optimal 40 - 60 ?Acceptable ?? < 40 ?Low LDL Calculated 104(H) <=100 mg/dL 08/20/2018 7:32 PM EST [facility] Comment: < 100 ?Optimal 100 - 129 ? Near or above optimal 130 - 159 ? Borderline High 160 - 189 ? High >= 190 ?Very High Non-HDL-C Calculated 140(H) <=129 mg/dL 08/20/2018 7:32 PM EST [facility] Comment: <130 ?Desirable 130-159 Above Desirable 160-189 Borderline High 190-219 High >= 220 ??Very High Blood VENOUS BLOOD / Unknown Venipuncture / Unknown 08/20/2018 2:02 PM EST 08/20/2018 2:02 PM EST us Cristiane Shirley MD CHEMISTRY ORDERABLES Final Res ult [facility] [address] [facility] , [place] [address] * (ABNORMAL) HEMOGLOBIN A1C (08/20/2018 2:02 PM EST) Pathologist [facility] Hgb A1C 6.2(H) 4.2 - 5.6 % 08/20/2018 7:32 PM EST [facility] Est. Avg Glucose 131 mg/dL 08/20/2018 7:32 PM EST [facility] Blood VENOUS BLOOD / Unknown Venipuncture / Unknown 08/20/2018 2:02 PM EST 08/20/2018 2:02 PM EST Narrative [facility] - 08/20/2018 7:32 PM EST REFERENCE RANGE: Normal: 4.0-5.6% Pre-diabetes: 5.7-6.4% Provisional diagnosis of diabetes: >6.4% Hgb F>10% and anything which shortens red cell survival, such as hemolytic anemia, or unstable hemoglobin variants such as HbSS, HbSC, or HbCC, will lower the HbA1c value associated with a given level of glycemic control. ? us Cristiane Shirley MD CHEMISTRY ORDERABLES Final Res ult [facility] [address] [place] [address] , [address] [place] [phone] documented in this encounter Visit Diagnoses Diagnosis Chronic idiopathic constipation- Primary Unspecified constipation Type 2 diabetes mellitus without complication, without long-term current use of insulin (HCC) Umbilical hernia without obstruction and without gangrene Left foot pain Pain in limb Left foot pain Pain in limb documented in this encounter Discontinued Medications Medication Sig Discontinue Reason Start Date End Da te predniSONE (DELTASONE) 20 mg Oral TabletIndications:Chest pain at rest,Temporal arteritis (HCC),PMR (polymyalgia rheumatica) (HCC) 3 tab daily for 3 days then 2 tab daily for 3 days then 1 tab daily for 3 days then 1/2 tab daily for 3 days. DELETE-Therapy completed 05/27/2018 08/20/2018 fUROsemide (LASIX) 20 mg Oral Tablet Take 1 Tab by mouth daily as needed. Reorder 01/06/2018 08/20/2018 oxybutynin (DITROPAN-XL) 10 mg Oral Tablet Extended Rel 24 hr Take 1 Tab by mouth 2 times daily. Reorder 12/16/2017 08/20/2018 documented as of this encounter Care Teams Clinical Lab Technologist Relationship Specialty Start Date End Date Cristiane Shirley MD [address] [place] [phone] PCP - General Family Medicine 08/20/18 12/29/23 Garett Holt MD Internal Medicine-Gastroenterology 12/22/12 Ruiz Stokes MD [address] [place] [address] Internal Medicine-Cardiovascular Disease 07/25/14 Yenny Schwab MD [address] [facility] [address] [place] [address] Internal Medicine-Rheumatology 12/11/16 documented as of this encounter
--- OUTSIDE RECORDS SUMMARY | 2024-07-22 16:11 | XMS_ITS | Encounter Summary ---
Author Organization [place] [address] Care Team Providers Care Junior Financial Analyst Name Role Phone Garett Holt MD Unavailable [phone] Ruiz Stokes MD Unavailable [phone] Annalise Oneill MD Primary Care Provider [phone] Yenny Schwab MD Unavailable [phone] Reason for Referral * Consultation (Routine) - Closed Specialty Diagnoses / Procedures Referred By Contac t Referred To Contact Diagnoses History of endometrial cancer Endometrial hyperplasia Annalise Oneill MD [address] [place] [phone] Phone: tel: fax: Juventino Gibson MD [address] [address] Phone: tel: fax: Referral ID Status Reason Start Date Expiration Date Visits Re quested Visits Authorized [id number] Closed 06/22/2018 06/22/2019 1 99 Encounter Details Date Type Department Care Team (Late st Contact Info) Description 06/22/2018 Orders Only [facility] [address] [place] [address] Laura Alvarado RMA History of endometrial cancer (Primary Dx); Endometrial hyperplasia Social History Tobacco Use Types Packs/Day Years [...] Entry Date Author Yes 01/06/2018 3:48 PM RINAT Ni Clinton RN documented in this encounter Plan of Treatment Upcoming Encounters Date Type Department Care Team (Late st Contact Info) Description 07/29/2024 9:00 AM EST Appointment [facility] [address] [place] [address] Jomar Kim MD [address] [place] [address] Scheduled Referrals Name Type Priority Associated Diagnoses Orde r Schedule AMB REFERRAL TO [facility]CHNIC[facility] Outpatient Referral Routine History of endometrial cancer Endometrial hyperplasia Ordered: 06/22/2018 documented as of this encounter Goals Goal [...] as of this encounter Visit Diagnoses Diagnosis History of endometrial cancer- Primary Personal history of malignant neoplasm of other parts of uterus Endometrial hyperplasia Endometrial hyperplasia, unspecified documented in this encounter Care Teams Junior Financial Analyst Relationship Specialty Start Date End Date Annalise Oneill MD [address] [place] [phone] PCP - General Family Medicine 11/19/16 08/19/18 Garett Holt MD Internal Medicine-Gastroenterology 12/22/12 Ruiz Stokes MD [address] [place] [address] [place] [address] Internal Medicine-Cardiovascular Disease 07/25/14 Yenny Schwab MD [address] [facility] Building [address] [place] [address] Internal Medicine-Rheumatology 12/11/16 documented as of this encounter
--- OUTSIDE RECORDS SUMMARY | 2024-07-22 16:11 | XMS_ITS | Encounter Summary ---
Author Organization [place] [address] Care Team Providers Care Angle Bender Name Role Phone Garett Holt MD Unavailable [phone] Ruiz Stokes MD Unavailable [phone] Annalise Oneill MD Primary Care Provider [phone] Yenny Schwab MD Unavailable [phone] Reason for Visit * Reason Comments Medication Refill Encounter Details Date Type Department Care Team (Late st Contact Info) Description 05/12/[address] [address] Annalise Oneill MD [address] [place] [address] Medication Refill Social History Tobacco Use [...] Refills Last Filled Start Date End Date VITAMIN D3 1,000 unit Oral Tablet TAKE 1 TABLET BY MOUTH EVERY DAY 64 Tab 05/13/2018 8 omeprazole (PRILOSEC) 20 mg Oral Capsule, Delayed Release(E.C.) TAKE 1 CAPSULE BY MOUTH ONCE DAILY 63 Cap 05/13/2018 8 atorvastatin (LIPITOR) 40 mg Oral Tablet TAKE 1/2 TABLET (20MG) BY MOUTH ONCE DAILY 18 Tab 2 05/13/2018 8 documented in this encounter Plan of Treatment Upcoming Encounters Date Type Department Care Team (Late st Contact Info) Description 07/29/2024 9:00 AM EST Appointment [facility] [address] [place] [address] Jomar Kim MD [address] [place] [address] documented as of this encounter [...] TABLET (20MG) BY MOUTH ONCE DAILY Reorder 03/10/2018 05/12/2018 omeprazole (PRILOSEC) 20 mg Oral Capsule, Delayed Release(E.C.) TAKE 1 CAPSULE BY MOUTH ONCE DAILY Reorder 03/10/2018 05/12/2018 VITAMIN D3 1,000 unit Oral Tablet TAKE 1 TABLET BY MOUTH EVERY DAY Reorder 03/10/2018 05/12/2018 documented as of this encounter Care Teams Angle Bender Relationship Specialty Start Date End Date Annalise Oneill MD [facility] [place] [phone] PCP - General Family Medicine 11/19/16 08/19/18 Garett Holt MD Internal Medicine-Gastroenterology 12/22/12 Ruiz Stokes MD [address] [facility] [address] Internal Medicine-Cardiovascular Disease 07/25/14 Yenny Schwab MD [address] [place] [address] Internal Medicine-Rheumatology 12/11/16 documented as of this encounter
--- OUTSIDE RECORDS SUMMARY | 2024-07-22 16:11 | XMS_ITS | Encounter Summary ---
Author Organization [place] [address] Care Team Providers Care Individual Small Group Instructor Name Role Phone Garett oHlt MD Unavailable [phone] Ruiz Stokes MD Unavailable [phone] Annalise Oneill MD Primary Care Provider [phone] Yenny Schwab MD Unavailable [phone] Reason for Visit * Reason Comments Medication Refill Encounter Details Date Type Department Care Team (Late st Contact Info) Description 06/24/[address] [address] Annalise Oneill MD [address] [place] [address] Medication Refill Social History Tobacco Use [...] End Date atorvastatin (LIPITOR) 20 mg Oral TabletIndications:Hy perlipidemia, unspecified hyperlipidemia type TAKE 1 TABLET BY MOUTH ONCE DAILY 90 Tab 06/24/2018 9 documented in this encounter Plan of Treatment Upcoming Encounters Date Type Department Care Team (Late st Contact Info) Description 07/29/2024 9:00 AM EST Appointment [facility] [address] [place] [address] Jomar Kim MD [address] [place] [address] documented as of this encounter Goals [...] as of this encounter Visit Diagnoses Diagnosis Hyperlipidemia, unspecified hyperlipidemia type documented in this encounter Care Teams Individual Small Group Instructor Relationship Specialty Start Date End Date Annalise Oneill MD [address] [place] [address] PCP - General Family Medicine 11/19/16 08/19/18 Garett Holt MD Internal Medicine-Gastroenterology 12/22/12 Ruiz Stokes MD [address] [place] [address] Internal Medicine-Cardiovascular Disease 07/25/14 Yenny Schwab MD [address] [place] [address] [place] [address] Internal Medicine-Rheumatology 12/11/16 documented as of this encounter
--- OUTSIDE RECORDS SUMMARY | 2024-07-22 16:11 | XMS_ITS | Encounter Summary ---
Author Organization [place] [address] Care Team Providers Care Estimator Name Role Phone Garett Holt MD Unavailable [phone] Ruiz Stokes MD Unavailable [phone] Annalise Oneill MD Primary Care Provider [phone] Yenny Schwab MD Unavailable [phone] Reason for Referral * Consultation (Routine) - Closed Specialty Diagnoses / Procedures Referred By Contac t Referred To Contact Ophthalmology Diagnoses Abnormal visual test Annalise Oneill MD [address] [place] [address] Phone: tel: fax: Sung Whitaker MD [address] [facility] [address] [place] [address] Phone: tel: fax: Referral ID Status Reason Start Date Expiration Date Visits Re quested Visits Authorized [id number] Closed 05/28/2018 05/28/2019 1 99 Encounter Details Date Type Department Care Team (Late st Contact Info) Description 05/28/2018 Orders Only [facility] [address] [place] [id number] Annalise Oneill MD [address] [facility] [place] [phone] Abnormal visual test (Primary Dx) Social History Tobacco Use Types [...] Upcoming Encounters Date Type Department Care Team ([facility] Contact Info) Description 07/29/2024 9:00 AM EST Appointment [facility] [address] [place] [address] Jomar Kim MD [address] [place] [address] Scheduled Referrals Name Type Priority Associated Diagnoses Order Schedule AMB REFERRAL TO OPHTHALMOLOGY Outpatient Referral Routine Abnormal visual test Ordered: 05/28/2018 documented as of this encounter Goals Goal [...] as of this encounter Visit Diagnoses Diagnosis Abnormal visual test- Primary documented in this encounter Care Teams Estimator Relationship Specialty Start Date End Date Annalise Oneill MD [address] [place] [phone] PCP - General Family Medicine 11/19/16 08/19/18 Garett Holt MD Internal Medicine-Gastroenterology 12/22/12 Ruiz Stokes MD [address] [place] [address] [place] [address] Internal Medicine-Cardiovascular Disease 07/25/14 Yenny Schwab MD [address] [facility] [address] [place] [address] Internal Medicine-Rheumatology 12/11/16 documented as of this encounter
--- OUTSIDE RECORDS SUMMARY | 2024-07-22 16:11 | XMS_ITS | Encounter Summary ---
Author Organization [place] [address] Care Team Providers Care Plant Physiology Teacher Name Role Phone Garett Holt MD Unavailable [phone] Ruiz Stokes MD Unavailable [phone] Annalise Oneill MD Primary Care Provider [phone] Yenny Schwab MD Unavailable [phone] Reason for Referral * Echo (Routine) - Closed Specialty Diagnoses / Procedures Referred By Contalissa t Referred To Contact Radiology Diagnoses Chest pain at rest Temporal arteritis (HCC) Procedures EC ECHOCARDIOGRAM COMPLETE W DOPPLER AND COLOR FLOW MAPPING Annalise Oneill MD [address] [place] [phone] Phone: tel: fax: [facility] [address] [place] [address] Phone: tel: Referral ID Status Reason Start Date Expiration Date Visits Re quested Visits Authorized [id number] Closed 05/27/2018 05/27/2020 1 1 * Consultation (Routine) - Closed Specialty Diagnoses / Procedures Referred By Contac t Referred To Contact Rheumatology Diagnoses Chest pain at rest Temporal arteritis (HCC) Annalise Oneill MD [address] [place] [address] Phone: tel: fax: Yenny Schwab MD [address] [facility] [address] [place] [address] Phone: tel: fax: Referral ID Status Reason Start Date Expiration Date Visits Re quested Visits Authorized [id number] Closed 05/27/2018 05/27/2019 1 99 Reason for Visit * Reason Comments Diabetes patient is in today states need assessment for diabetic shoes, she also needs to complete eye exam, and micral Ankle Pain would like to have h er LT ankle checked states fell about 2 months ago and since she has pain and edema to her LT ankle Chest Pain c/o chest pain, bila t arm numbness, SOA , HAs s/s x 3-4 days Encounter Details Date Type Department Care Team (Late st Contact Info) Description 05/27/2018 1:00 PM EDT Office Visit [facility] [address] [place] [address] Annalise Oneill MD [address] [place] [address] Type 2 diabetes mellitus without complication, without long-term current use of insulin (HCC) (Primary Dx); Flu vaccine need; Chest pain at rest; Temporal arteritis (HCC); PMR (polymyalgia rheumatica) (HCC); Lower extremity edema Social History Tobacco Use [...] Sign Reading Time Taken Comments Blood Pressure 120/80 05/27/2018 1:01 PM EDT Pulse - - Temperature 36.8 ??C (98.2 ??F) 05/27/2018 1:01 PM ED T Respiratory Rate 16 05/27/2018 1:01 PM EDT Oxygen Saturation - - Inhaled Oxygen Concentration - - Weight 122.5 kg (270 lb) 05/27/2018 1:01 PM EDT Height 152.4 cm (5') 05/27/2018 1:01 PM EDT Body Mass Index 52.73 05/27/2018 1:01 PM EDT documented in this encounter Functional [...] End Date predniSONE (DELTASONE) 20 mg Oral TabletIndications :Chest pain at rest,Temporal arteritis (HCC),PMR (polymyalgia rheumatica) (HCC) 3 tab daily for 3 days then 2 tab daily for 3 days then 1 tab daily for 3 days then 1/2 tab daily for 3 days. 20 Tab 05/27/2018 05/27/20 18 Diabetic Shoes MISCELLANEOUIndic ations:Type 2 diabetes mellitus without complication, without long-term current use of insulin (HCC) 1 Each by MISCELLANEOUS route once for 1 dose. 1 Each 05/27/2018 05/27/20 18 documented in this encounter Progress Notes * Annalise Oneill MD - 05/27/2018 1:00 PM EDT Subjective Alyssa Campos is a 63 y.o. female Subjective Chief Complaint Patient presents with ??? Diabetes patient is in today states need assessment for diabetic shoes, she also needs to complete eye exam,and micral ??? Ankle Pain would like to have her LT ankle checked states fell about 2 months ago and since she has pain and edema to her LT ankle ??? Chest Pain c/o chest pain, bilat arm numbness, SOA , HAs s/s x 3-4 days Chest x 4 days Onset at rest. Feels like someone punched her in the chest Increased frequency Has been constant in the past 24 hrs. She has pain in the upper back as well No shortness of breath Has temporal arteritis and does report active RITTER and vision changes She continues to have bilateral upper extremity pain and weakness No fever or chills Noncompliant on appropriate rheumatology follow up Hyperpigmentation and swelling in the lower legs. DM - No home testing. No reported hypoglycemic episodes Review of Systems Respiratory: Positive for chest tightness and shortness of breath. Cardiovascular: Positive for chest pain and leg swelling. Musculoskeletal: Positive for arthralgias (LT ankle pain ). Neurological: Positive for headaches. Objective Objective BP 120/80 Temp 98.2 ??F (36.8 ??C) Resp 16 Ht 5' (1.524 m) Wt 270 lb (122.5 kg) BMI 52.73kg/m?? Physical Exam Constitutional: She is oriented to person, place, and time. She appears well- developed and well-nourished. HENT: Right temporal tenderness and adventist atrophy present Eyes: Conjunctivae are normal. Pupils are equal, round, and reactive to light. Neck: Normal range of motion. Neck supple. No thyromegaly present. Cardiovascular: Normal rate, regular rhythm and intact distal pulses. Murmur heard. No carotid bruits. Pulmonary/Chest: Effort normal and breath sounds normal. Abdominal: Soft. Bowel sounds are normal. She exhibits no mass. There is no tenderness. Musculoskeletal: She exhibits edema. Normal upper extremity strength Neurological: She is alert and oriented to person, place, and time. She has normal reflexes. Skin: Skin is warm and dry. Rash (hyperpigmentation around bilateral ankles) noted. Psychiatric: She has a normal mood and affect. Judgment normal. Vitals reviewed. Assessment and Plan Alyssa was seen today for diabetes, ankle pain and chest pain. Diagnoses and all orders for this visit: Type 2 diabetes mellitus without complication, without long-term current use of insulin ([facility]) - [facility] DIABETIC RETINOPATHY EXAM - POCT MICROALBUMIN - CBC WITH DIFF; Future - TSH REFLEX; Future - HEMOGLOBIN A1C; Future - COMPREHENSIVE METABOLIC PANEL; Future - LIPID PANEL REFLEX; Future - [facility] STABLE - Diabetic Shoes MISCELLANEOU; 1 Each by MISCELLANEOUS route once for 1 dose. Flu vaccine need - Cancel: FLU VACCINE QUADRIVALENT (3YR+) Chest pain at rest - POCT EKG - AMB REFERRAL TO RHEUMATOLOGY - EC ECHOCARDIOGRAM COMPLETE W DOPPLER AND COLOR FLOW MAPPING; Future - [facility] PATIENT NOT AT GOAL - predniSONE (DELTASONE) 20 mg Oral Tablet; 3 tab daily for 3 days then 2 tab daily for 3 days then1 tab daily for 3 days then 1/2 tab daily for 3 days. Temporal arteritis ([facility]) - AMB REFERRAL TO RHEUMATOLOGY - EC ECHOCARDIOGRAM COMPLETE W DOPPLER AND COLOR FLOW MAPPING; Future - SEDIMENTATION RATE AUTOMATED; Future - C-REACTIVE PROTEIN; Future - [facility] PATIENT NOT AT GOAL - predniSONE (DELTASONE) 20 mg Oral Tablet; 3 tab daily for 3 days then 2 tab daily for 3 days then1 tab daily for 3 days then 1/2 tab daily for 3 days. PMR (polymyalgia rheumatica) ([facility]) - [facility] PATIENT NOT AT GOAL - predniSONE (DELTASONE) 20 mg Oral Tablet; 3 tab daily for 3 days then 2 tab daily for 3 days then1 tab daily for 3 days then 1/2 tab daily for 3 days. Lower extremity edema - [facility] PATIENT NOT AT GOAL patient refuses steroid use but I again attempted to explain this is the only treatment for her TA and PMR. Return if symptoms worsen or fail to improve. Patient was educated regarding the diagnosis, medication/treatment, [...] questions and answered accordingly. Annalise Oneill MD * Lea Torres RMA - 05/27/2018 1:00 PM EDT I, MULU Franklin, administered the Iris diabetic retinopathy screening without difficulty. Initial evaluation involved looking at patient eyes to confirm that eyes do not appear red, angry, and/or the cornea appears hazy. Patient was able to adequately dilate pupils naturally for adequate images to be obtained. No dilation drops were necessary. documented in this encounter Miscellaneous Notes * Patient Instructions - Ni Clinton RN - 05/27/2018 1:00 PM EDT For your diabetes care, we encourage the following: Keep track of your A1c number (shows sugar control for the 3 months prior to your test). Your last A1c level is below Lab Results Component Value Date HGBA1C 6.4 01/06/2018 For this level if you are below 6, you are doing great. If you are between 6 and 7, your control isgood and keep up your efforts. If your level is above 7, you need to work with your physician(s) and other members of your health care team to improve your A1c score. This score strongly correlates with your risk of developing complications from diabetes including damage to blood vessels, kidneys, and foot infections. Your risk for complications with circulation (including heart attack and stroke) also depend on cholesterol control, blood pressure control, and taking a daily blood thinner (such as aspirin), and not smoking. For your blood pressure, your readings should regularly be less than 140 / 90. BP Readings from Last 3 Encounters: 05/27/18 120/80 03/23/18 126/80 01/06/18 122/80 For your cholesterol - your LDL (bad) cholesterol goal is to get less than 100. Lab Results Component Value Date LDLCALC 104 (H) 01/06/2018 For some patients, we have more individualized goals that may be personalized based on other risk factors. documented in this encounter Plan of Treatment Upcoming Encounters Date Type Department Care Team (Late st Contact Info) Description 07/29/2024 9:00 AM EST Appointment [facility] [address] [place] [place], [place] [id number] Jomar Kim MD [address] [place], [place] [phone] Scheduled Referrals Name Type Priority Associated Diagnoses Order Schedule AMB REFERRAL TO RHEUMATOLOGY Outpatient Referral Routine Chest pain at rest Temporal arteritis (HCC) Ordered: 05/27/2018 documented as of this encounter Goals Goal Patient Goal Type Associated Problems Recent Progress Patient-Stated? Author Blood Pressure < 140/90 Blood Pressure 110/72(2023 2:44 PM EDT) No Rachel Rogers RMA BMI (Calculated) < 30 General 50.9(04/27/20 24 2:44 PM EDT) No Rahcel Rogers RMA Eat better, exercise, reach an ideal body weight General No Ni Clinton, MATT Stay Tobacco Free Lifestyle On track( 021 10:23 AM EDT) No Wendy Espinoza LPN HEMOGLOBIN A1C < 7.0 Result Component 5.6( 4 3:04 PM EST) No Rachel Rogers RMA documented as of this encounter Procedures Procedure Name Priority Date/Time Associated Diagnosis Comments POCT MICROALBUMIN Routine 05/27/2018 2:0 9 PM EDT Type 2 diabetes mellitus without complication, without long-term current use of insulin (HCC) IRIS DIABETIC RETINOPATHY EXAM Routine 05/27/2018 1:56 PM EDT Type 2 diabetes mellitus without complication, without long-term current use of insulin (HCC) POCT EKG Routine 05/27/2018 1:07 PM EDT Chest pain at rest documented in this encounter Results * EC [...] size and function. No significant valve disease Annalise Oneill MD IMG ECHO ORDERABLES Final Res ult * (ABNORMAL) C-REACTIVE PROTEIN (05/27/2018 2:10 PM EDT) CRP 15.18(H) <=5.00 mg/L 05/27/2018 7:09 PM EDT [facility] Blood Venipuncture / Unknown 05/27/2018 2:10 PM EDT 05/27/2018 2:10 PM EDT Annalise Oneill MD CHEMISTRY ORDERABLES Final Re sult [facility] [email or web address] [address] [facility] , [place] [address] * (ABNORMAL) SEDIMENTATION RATE AUTOMATED (05/27/2018 2:10 PM EDT) [facility] Sed Rate 71(H) 0 - 30 mm/hr 05/27/2018 7:18 PM EDT [facility] Blood Venipuncture / Unknown 05/27/2018 2:10 PM EDT 05/27/2018 2:10 PM EDT us Annalise Oneill MD HEMATOLOGY ORDERABLES Final R esult Performing Organization Address [facility] Co de Phone Number [facility] [email or web address] [facility] [address] [facility] , [place] [address] * (ABNORMAL) LIPID PANEL REFLEX (05/27/2018 2:10 PM EDT) [facility] Cholesterol 199 <=200 mg/dL 05/27/2018 7:09 PM EDT [facility] Comment: < 200 ?Desirable 200 - 239 ? Borderline High >= 240 ?High Triglyceride 131 <=150 mg/dL 05/27/2018 7:09 PM EDT [facility] Comment: < 150 ? Normal 150 - 199 ?Borderline High 200 - 499 ?High ??>= 500 ? Very High HDL 61 >=40 mg/dL 05/27/2018 7:09 PM EDT [facility] Comment: ??> 60 ?Optimal 40 - 60 ?Acceptable ?? < 40 ?Low LDL Calculated 112(H) <=100 mg/dL 05/27/2018 7:09 PM EDT [facility] Non-HDL-C Calculated 138(H) <=129 mg/dL 05/27/2018 7:09 PM EDT [facility] Comment: <130 ?Desirable 130-159 Above Desirable 160-189 Borderline High 190-219 High >= 220 ??Very High Blood Venipuncture / Unknown 05/27/2018 2:10 PM EDT 05/27/2018 2:10 PM EDT us Annalise Oneill MD CHEMISTRY ORDERABLES Final Re sult [facility] [address] [facility], [place] [address] * (ABNORMAL) COMPREHENSIVE METABOLIC PANEL (05/27/2018 2:10 [...] 7:09 PM EDT [facility] Bili Total 0.2 0.1 - 1.3 mg/dL 05/27/2018 7:09 PM EDT [facility] ALT 15 <=41 IU/L 05/27/2018 7:09 PM EDT [facility] AST 16 <=40 IU/L 05/27/2018 7:09 PM EDT [facility] [employer], [facility] Alk Phos 93 35 - 104 IU/L 05/27/2018 7:09 PM EDT [facility] [employer], [facility] GFR Afr Am 100 >=60 mL/min/1.7 3 m2 05/27/2018 7:09 PM EDT [facility] GFR Non Afr Am 87 >=60 mL/min/1.7 3 m2 05/27/2018 7:09 PM EDT [facility] Comment: This estimated GFR was [...] Oneill MD CHEMISTRY ORDERABLES Final Re sult [facility] [address] [facility], [address] [place] [phone] [facility] [address] [place] [address] * (ABNORMAL) HEMOGLOBIN A1C (05/27/2018 2:10 PM EDT) Hgb A1C 5.8(H) 4.2 - 5.6 % 05/27/2018 8:11 PM EDT [facility] [employer], [facility] Est. Avg Glucose 120 mg/dL 05/27/2018 8:11 PM EDT [facility] [employer], [facility] Blood Venipuncture / Unknown 05/27/2018 2:10 PM EDT 05/27/2018 2:10 PM EDT Narrative [facility] [employer], [facility] - 05/27/2018 8:11 PM EDT REFERENCE RANGE: [...] Re sult Performing Organization Address [facility] de Phone Number [facility] [address] [place] [address] , [place] [address] * TSH REFLEX (05/27/2018 2:10 PM EDT) Pathologist [facility] TSH Reflex 1.590 0.270 - 4.200 mcIU/mL 05/27/2018 7:09 PM EDT [facility] Blood Venipuncture / Unknown 05/27/2018 2:10 PM EDT 05/27/2018 2:10 PM EDT Narrative [facility] - 05/27/2018 7:09 PM EDT Ingestion of min doses of biotin (>5 mg/day) taken within 8 hours of drawing blood sample can interfere with this immunoassay test. Annalise Oneill MD CHEMISTRY ORDERABLES Final Re sult Performing Organization Address [facility] de Phone Number [facility] [address] [place] [address] , [place] [address] * (ABNORMAL) CBC WITH DIFF (05/27/2018 2:10 PM EDT) WBC 11.0(H) 3.7 - 10.3 x10(3)/mcL 05/27/2018 6:43 PM EDT [employer] [employer] RBC 4.31 3.90 - 5.20 x10(6)/mcL 05/27/2018 6:43 PM EDT [employer] [employer] Hgb 11.3 11.2 - 15.7 g/dL 05/27/2018 6:43 PM EDT [employer] [employer] Hct 38.9 34.0 - 45.0 % 05/27/2018 6:43 PM EDT [facility], [facility] MCV 90.3 79.0 - 98.0 fL 05/27/2018 6:43 PM EDT [facility] MCH 26.2 26.0 - 32.0 pg 05/27/2018 6:43 PM EDT [facility] MCHC 29.0(L) 30.7 - 35.5 g/dL 05/27/2018 6:43 PM EDT [facility] RDW 15.4(H) <=14.9 % 05/27/2018 6:43 PM EDT [facility] Platelet 301 155 - 369 x10(3)/mcL 05/27/2018 6:43 PM EDT [facility] MPV 10.3 8.8 - 12.5 fL 05/27/2018 6:43 PM EDT [facility] Neut Percent 67.0 % 05/27/2018 6:43 PM EDT [facility] Comment:Neutrophils equals s egs plus bands Imm Gran% 0.6 % 05/27/2018 6:43 PM EDT [facility] Comment:Automated count of m etamyelocytes, myelocytes and promyelocytes. Lymph Percent 20.0 % 05/27/2018 6:43 PM EDT [facility] Hopkins Percent 9.6 % 05/27/2018 6:43 PM EDT [facility] Eos Percent 2.4 % 05/27/2018 6:43 PM EDT [facility] Baso Percent 0.4 % 05/27/2018 6:43 PM EDT [facility] Neut # 7.4(H) 1.6 - 6.1 x10(3)/[facility] 05/27/2018 6:43 PM EDT [facility] Comment:Neutrophils equals s egs plus bands IMMGRAN# 0.1 0.0 - 0.1 x10(3)/mcL 05/27/2018 6:43 PM EDT [facility] Comment:Automated count of m etamyelocytes, myelocytes and promyelocytes. An absolute IG <0.1 is reported as 0.0. Lymph # 2.2 1.2 - 3.9 x10(3)/mcL 05/27/2018 6:43 PM EDT [facility] Hopkins # 1.1(H) 0.3 - 0.9 x10(3)/[facility] 05/27/2018 6:43 PM EDT [facility] Eos# 0.3 0.0 - 0.5 x10(3)/[facility] 05/27/2018 6:43 PM EDT [facility] Baso # 0.0 0.0 - 0.1 x10(3)/[facility] 05/27/2018 6:43 PM EDT [facility] [employer], [facility] Blood Venipuncture / Unknown 05/27/2018 2:10 PM EDT 05/27/2018 2:10 PM EDT Annalise Oneill MD HEMATOLOGY ORDERABLES Final R esult [facility] [employer], [facility] [address] [facility] , [place] [address] * (ABNORMAL) POCT MICROALBUMIN (05/27/2018 2:09 PM EDT) [facility] Microalb, Ur 50(A) <=20 MG/L SEP OFFICE Lot Number [id number] SEP OFFICE Expiration Date 11/05/18 SEP OFFICE SeriAl # SEP OFFICE Urine 05/27/2018 2:09 PM EDT Annalise Oneill MD POINT OF CARE TEST ORDERABLES Final Result SEP OFFICE * (ABNORMAL) [facility] DIABETIC RETINOPATHY EXAM (05/27/2018 1:56 PM EDT) [facility] Retinopathy Exam Severity ALERT(A) [facility] Right Diabetic Retinopathy None [facility] Right Macular Edema None [facility] Right Other Retina Suspected Glaucoma(A) [facility] Right Eye Image Quality Gradable Image [facility] Left Diabetic Retinopathy None [facility] Left Macular Edema None [facility] Left Other Retina None [facility] Left Eye Image Quality Gradable Image [facility] 05/27/2018 1:56 PM EDT 05/27/2018 1:56 PM EDT Impressions [facility] - 05/27/2018 2:02 PM EDT Retinal Study Result for ALYSSA CAMPOS MARY, stevie 63 y/o, F (: 1955, ) presented to [facility] on 05-27-2018 for a retinal imaging study of the left and right eyes. Based on the findings of the study, the following is recommended for ALYSSA CAMPOS Glaucoma Suspected: Refer patient to opthalmology. ? ? ?Advise appointment needed for suspicion of glaucoma 0-3 months or with decline in vision. Interpreting Provider's Comments: ??No comments provided Diagnoses Present: E11.9 - Type 2 diabetes mellitus without complications Right Eye Findings: Negative for Diabetic Retinopathy. Other: Suspected Glaucoma Left Eye Findings: Normal Result. ??Negative for Diabetic Retinopathy. This result was electronically signed by Ronni Trinh MD, , Taxonomy: [id number] on 05-27-2018 06:02:53 [facility] time. NOTE: ??Any pathology noted on this diabetic retinal evaluation should be confirmed by an appropriate ophthalmic examination. us Annalise Oneill MD OPHTHALMOLOGY SERVICES ORDERA BLES Final Result Performing Organization Address City/[facility]/ZIP Co de Phone Number [facility] [address] [place] [address] * POCT EKG (05/27/2018 1:07 PM EDT) 05/27/2018 1:07 PM EDT Impressions SEP OFFICE - 05/27/2018 1:07 PM EDT EKG: NSR.normal axis and intervals. No acute changes us Annalise Oneill MD POINT OF CARE CARDIOLOGY Mercedes l Result SEP OFFICE documented in this encounter Visit Diagnoses Diagnosis Type 2 diabetes mellitus without complication, without long-term current use of insulin (HCC)- Primary Flu vaccine need Need for prophylactic vaccination and inoculation against influenza Chest pain at rest Chest pain, unspecified Temporal arteritis (HCC) Giant cell arteritis PMR (polymyalgia rheumatica) (HCC) Polymyalgia rheumatica Lower extremity edema Edema Chest pain at rest Chest pain, unspecified Temporal arteritis (HCC) Giant cell arteritis documented in this encounter Orders Nursing Count Last Ordered Date First Orde red Date HCC PATIENT NOT AT GOAL 1 05/27/2018 HCC STABLE 1 05/27/2018 documented in this encounter Care Teams Plant Physiology Teacher Relationship Specialty Start Date End Date Annalise Oneill MD [address] [facility] [place] [address] PCP - General Family Medicine 11/19/16 08/19/18 Garett Holt MD Internal Medicine-Gastroenterology 12/22/12 Ruiz Stokes MD [address] [facility] [address] [place], [place] [id number] Internal Medicine-Cardiovascular Disease 07/25/14 Yenny Schwab MD [address] [facility] Building [address] [place] [id number] Internal Medicine-Rheumatology 12/11/16 documented as of this encounter
--- OUTSIDE RECORDS SUMMARY | 2024-07-22 16:11 | XMS_ITS | Encounter Summary ---
Author Organization [place] [address] Care Team Providers Care Customs Inspector Name Role Phone Garett Holt MD Unavailable [phone] Ruiz Stokes MD Unavailable [phone] Annalise Oneill MD Primary Care Provider Yenny Schwab MD Unavailable [phone] Reason for Visit * Reason Comments Medication Refill Encounter Details Date Type Department Care Team (Late st Contact Info) Description 07/13/[address] [address] Annalise Oneill MD [address] [place] [address] Medication Refill Social History Tobacco Use [...] TabletIndications: Seasonal allergic rhinitis due to pollen TAKE 1 TABLET BY MOUTH DAILY 63 Tab 2 07/13/2018 9 lisinopril (PRINIVIL;ZESTRIL) 20 mg Oral Tablet tabletIndications: Essential hypertension TAKE 1 TABLET BY MOUTH ONCE DAILY 63 Tab 2 07/13/2018 9 ASPIRIN LOW DOSE 81 mg Oral Tablet, Delayed Release (E.C.) TAKE 1 TABLET BY MOUTH DAILY 63 Tab 3 07/13/2018 0 amLODIPine (NORVASC) 10 mg Oral TabletIndications: Essential hypertension TAKE 1 TABLET BY MOUTH DAILY 63 Tab 2 07/13/2018 9 metFORMIN (GLUCOPHAGE) 500 mg Oral TabletIndications: Type 2 diabetes mellitus without complication (HCC) TAKE 1 TABLET BY MOUTH DAILY WITH BREAKFAST 63 Tab 2 07/13/2018 9 atorvastatin (LIPITOR) 40 mg Oral Tablet TAKE 1/2 TABLET (20MG) BY MOUTH ONCE DAILY 18 Tab 2 07/13/2018 9 VITAMIN D3 1,000 unit Oral Tablet TAKE 1 TABLET BY MOUTH EVERY DAY 64 Tab 07/13/2018 9 omeprazole (PRILOSEC) 20 mg Oral Capsule, Delayed Release(E.C.) TAKE 1 CAPSULE BY MOUTH ONCE DAILY 63 Cap 07/13/2018 9 documented in this encounter Plan of Treatment Upcoming Encounters Date Type Department Care Team (Late st Contact Info) Description 07/29/2024 9:00 AM EST Appointment [facility] [address] [place] [address] Jomar Kim MD [address] [place] [address] documented as of this encounter Goals [...] Diagnoses Diagnosis Type 2 diabetes mellitus without complication (HCC) Essential hypertension Unspecified essential hypertension Seasonal allergic rhinitis due to pollen documented in this encounter Discontinued Medications Medication Sig Discontinue Reason Start Date End Da te omeprazole (PRILOSEC) 20 mg Oral Capsule, Delayed Release(E.C.) TAKE 1 CAPSULE BY MOUTH ONCE DAILY Reorder 05/13/2018 07/13/2018 VITAMIN D3 1,000 unit Oral Tablet TAKE 1 TABLET BY MOUTH EVERY DAY Reorder 05/13/2018 07/13/2018 atorvastatin (LIPITOR) 40 mg Oral Tablet TAKE 1/2 TABLET (20MG) BY MOUTH ONCE DAILY Reorder 05/13/2018 07/13/2018 metFORMIN (GLUCOPHAGE) 500 mg Oral TabletIndications:Type 2 diabetes mellitus without complication (HCC) TAKE 1 TABLET BY MOUTH DAILY WITH BREAKFAST Reorder 01/06/2018 07/13/2018 amLODIPine (NORVASC) 10 mg Oral TabletIndications:Essent ial hypertension TAKE 1 TABLET BY MOUTH DAILY Reorder 01/06/2018 07/13/2018 ASPIR-LOW 81 mg Oral Tablet, Delayed Release (E.C.) TAKE 1 TABLET BY MOUTH DAILY Reorder 01/06/2018 07/13/2018 lisinopril (PRINIVIL;ZESTRIL) 20 mg Oral TabletIndications:Essent ial hypertension TAKE 1 TABLET BY MOUTH ONCE DAILY Reorder 01/06/2018 07/13/2018 loratadine (CLARITIN) 10 mg Oral TabletIndications:Season al allergic rhinitis due to pollen TAKE 1 TABLET BY MOUTH DAILY Reorder 01/06/2018 07/13/2018 documented as of this encounter Care Teams Customs Inspector Relationship Specialty Start Date End Date Annalise Oneill MD [address] [place] [address] PCP - General Family Medicine 11/19/16 08/19/18 Garett Holt MD Internal Medicine-Gastroenterology 12/22/12 Ruiz Stokes MD [address] [facility] [place] [address] Internal Medicine-Cardiovascular Disease 07/25/14 Yenny Schwab MD [address] [facility] [address] [place] [address] Internal Medicine-Rheumatology 12/11/16 documented as of this encounter
--- OUTSIDE RECORDS SUMMARY | 2024-07-22 16:12 | XMS_ITS | Encounter Summary ---
Author Organization [place] [address] Care Team Providers Care Sole Molding Machine Operator Name Role Phone Garett Holt MD Unavailable [phone] Ruiz Stokes MD Unavailable [phone] Annalise Oneill MD Primary Care Provider [phone] Yenny Schwab MD Unavailable [phone] Reason for Visit * Reason Comments Follow-up * Consultation (Routine) - Closed Specialty Diagnoses / Procedures Referred By Contac t Referred To Contact Gynecology Diagnoses Rectocele Annalise Oneill MD [address] [place] [address] Phone: tel: fax: Kaur Cameron MD Referral ID Status Reason Start Date Expiration Date Visits Re quested Visits Authorized [id number] Closed 08/19/2017 08/19/2018 1 99 Encounter Details Date Type Department Care Team (Latest Contact Info) Description 11/05/2017 1:45 PM EST Office Visit [facility] [address] [place] [address] Kaur Cameron MD Prolapse of posterior vaginal wall (Primary Dx) Social History Tobacco Use Types [...] Sign Reading Time Taken Comments Blood Pressure 126/82 11/05/2017 2:11 PM EST Pulse 86 11/05/2017 2:11 PM EST Temperature - - Respiratory Rate 20 11/05/2017 2:11 PM EST Oxygen Saturation - - Inhaled Oxygen Concentration - - Weight - - Height - - Body Mass Index - - documented in this encounter Functional Status * Is the person deaf or does he/she have serious difficulty hearing? Answer Date of Assessment Author No 03/14/2017 10:26 AM Elle Wolf LPN * Is the person blind or does he/she have serious difficulty seeing even when wearing glasses? Answer Date of Assessment Author No 03/14/2017 10:26 AM Elle Wolf LPN * Does this person have serious difficulty walking or climbing stairs? Answer Date of Assessment Author Yes 03/14/2017 10:26 AM Elle Wolf LPN * Does this person have difficulty dressing or bathing? Answer Date of Assessment Author No 03/14/2017 10:26 AM Elle Wolf LPN * Because of a physical, mental or emotional condition, does this person have difficulty doing errands alone such as visiting a doctor's office or shopping? Answer Date of Assessment Author No 03/14/2017 10:26 AM Elle Wolf LPN documented as of this encounter Mental Status * Because of a physical, mental or emotional condition, does this person have serious difficulty concentrating, remembering or making decisions? Answer Entry Date Author No 03/14/2017 10:26 AM Elle Wolf LPN documented in this encounter Progress Notes * Kaur Cameron MD - 11/05/2017 1:45 PM EST Images from the original note were not included. Kaur Cameron MD [facility] Pessary Patient Note Alyssa Jamil 1955 Assessment: 62 y.o. female with 1. Prolapse of posterior vaginal wall Plan: 1) Pessary placed without any difficulty 2) Precautions given to call if any issues with urination, defecation, spotting, or pain 3) Follow up in 4 weeks with [facility] 4) Did not place larger size because #5 was constrictive. Return in about 4 weeks (around 12/03/2017) for pessary visit with nurse practitioner. HPI: Alyssa Jamil is a 62 y.o. who is here for pessary visit from 09/17/2017 for pessary replacement. The last one fell out. There are no changes to H & P. Past Medical History: Diagnosis Date ??? Anemia [...] CPAP OR BIPAP PER PATIENT ??? Ulcer (HCC) Past Surgical History: Procedure Laterality Date ??? ARTERY BIOPSY Right 01/06/2017 RIGHT TEMPORAL ARTERY BIOPSY ; Surgeon: Christa Chavez MD; Location: [facility] MAIN OR; Service: General ??? CARDIAC CATHETERIZATION 04/2015 ??? CHOLECYSTECTOMY 1989 ??? COLONOSCOPY ??? COLONOSCOPY 02/17/2013 Surgeon: Garett Holt MD; Location: [facility]; Service: ??? DENTAL SURGERY upper and lower teeth removed ??? UPPER GASTROINTESTINAL ENDOSCOPY ??? UPPER GASTROINTESTINAL ENDOSCOPY 02/17/2013 Surgeon: Garett Holt MD; Location: [facility]; Service: Family History Problem Relation Age of Onset ??? Heart Disease Father ??? Cataracts Father ??? Diabetes Father ??? Cancer Maternal Grandmother ??? Colon Cancer Maternal Grandmother ??? Anesth Problems Neg Hx Vitals: 11/05/17 1411 BP: 126/82 Pulse: 86 Resp: 20 Review of Systems: Constitutional: Denies fever, chills, weakness, fatigue, weight loss, weight gain Eyes: Denies visual blurring, double vision, visual loss, glaucoma, cataracts, ENT: Denies decreased hearing, dizziness or vertigo, nosebleeds, difficulty swallowing, Respiratory: Denies hemoptysis, shortness of breath, wheezing. Cardiovascular: Denies chest pain, dyspnea on exertion, irregular heartbeat, murmur, palpitations, rapid heart rate and syncope. Gastrointestinal: Denies change in bowel habits, jaundice, nausea, GERD, liver problems Genitourinary: Denies irregular menses, vaginal discharge, genital ulcers, hot flashes, menopause Integument/breast: Denies breast lump, breast tenderness, skin cancer Musculoskeletal: Denies numbness, tingling, weakness. Allergic/Immunologic: Denies anaphylaxis, angioedema, urticaria Hematologic/lymphatic: Denies swollen glands, easy bruising, anemia, bleeding problems Physical Exam: Vaginal exam performed #4 ring with support pessary placed No expulsion with movement, valsalva, or urination 1 fingerbreadth admitted around pessary Kaur Cameron MD, FACOG [facility] [address] [place] [address] 11/05/2017 2:52 PM documented in this encounter Plan of Treatment Upcoming Encounters Date Type Department Care Team (Late st Contact Info) Description 07/29/2024 9:00 AM EST Appointment [facility] [address] [facility] [place], [place] [id number] Jomar Kim MD [address] [place], [place] [id number] documented as of this encounter Goals Goal [...] as of this encounter Visit Diagnoses Diagnosis Prolapse of posterior vaginal wall- Primary Unspecified prolapse of vaginal [place] documented in this encounter Care Teams Sole Molding Machine Operator Relationship Specialty Start Date End Date Annalise Oneill MD [address] [place] [address] PCP - General Family Medicine 11/19/16 08/19/18 Garett Holt MD Internal Medicine-Gastroenterology 12/22/12 Ruiz Stokes MD [address] [place] [address] Internal Medicine-Cardiovascular Disease 07/25/14 Yenny Shcwab MD [address] [address] Internal Medicine-Rheumatology 12/11/16 documented as of this encounter
--- OUTSIDE RECORDS SUMMARY | 2024-07-22 16:12 | XMS_ITS | Encounter Summary ---
Author [place] [address] Care Team Providers Care Leather Sprayer Name Role Phone Garett Holt MD Unavailable [phone] Ruiz Stokes MD Unavailable [phone] Annalise Oneill MD Primary Care Provider [phone] Yenny Schwab MD Unavailable [phone] Reason for Visit * Reason Onset Date Comments Medication Management 07/08/2017 Encounter Details Date Type Department Care Team (Late st Contact Info) Description 07/08/2017 Telephone [facility] [place] [facility] [address] [address] Yenny Schwab MD [address] [address] Medication Management Social History Tobacco Use Types Packs/Day Years [...] of Assessment Author No 03/14/2017 10:26 AM EDT Elle Almanza LPN * Is the person blind or does he/she have serious difficulty seeing even when wearing glasses? Answer Date of Assessment Author No 03/14/2017 10:26 AM EDT Elle Almanza LPN * Does this person have serious difficulty walking or climbing stairs? Answer Date of Assessment Author Yes 03/14/2017 10:26 AM EDT Elle Almanza LPN * Does this person have difficulty dressing or bathing? Answer Date of Assessment Author No 03/14/2017 10:26 AM EDT Elle Almanza LPN * Because of a physical, mental or emotional condition, does this person have difficulty doing errands alone such as visiting a doctor's office or shopping? Answer Date of Assessment Author No 03/14/2017 10:26 AM EDT Elle Almanza LPN documented as of this encounter Mental Status * Because of a physical, mental or emotional condition, does this person have serious difficulty concentrating, remembering or making decisions? Answer Entry Date Author No 03/14/2017 10:26 AM EDT Elle Almanza LPN documented in this encounter Miscellaneous Notes * Telephone Encounter - Angela Melchor - 07/08/2017 12:18 PM EDT Spoke with [facility] and they understood we will not be filling this per message on 06/30/17. Thanks * Telephone Encounter - Lea Paulino CCMA - 07/08/2017 11:44 AM EDT Per 06-30-17 telephone encounter pt called and stated she was D/C services at this office. Please contact pt to see if she is still seeing us, No follow up on file. * Telephone Encounter - Angela Melchor - 07/08/2017 10:28 AM EDT Pt needs a request for Amitriptylen to be sent to the [facility] @ [phone] , pt lastOV 01/17/17. Pt has no future OV labs 07/01/17 . documented in this encounter Plan of Treatment Upcoming Encounters Date Type Department Care Team (Late st Contact Info) Description 07/29/2024 9:00 AM EST Appointment [facility] [address] [place] [address] Jomar Kim MD [address] [place] [address] documented as of this encounter [...] on filedocumented in this encounter Care Teams Leather Sprayer Relationship Specialty Start Date End Date Annalise Oneill MD [address] [facility] [place] [address] PCP - General Family Medicine 3/14/17 12/12/18 Garett Holt MD Internal Medicine-Gastroenterology 12/22/12 Ruiz Stokes MD [address] [place] [address] Internal Medicine-Cardiovascular Disease 07/25/14 Yenny Schwab MD [address] [place] [id number] Internal Medicine-Rheumatology 12/11/16 documented as of this encounter
--- OUTSIDE RECORDS SUMMARY | 2024-07-22 16:12 | XMS_ITS | Encounter Summary ---
Author Organization [place] [address] Care Team Providers Care Gas Appliance Adjuster Name Role Phone Garett Holt MD Unavailable [phone] Ruiz Stokes MD Unavailable [phone] Annalise Oneill MD Primary Care Provider [phone] Yenny Schwab MD Unavailable [phone] Reason for Visit * Reason Onset Date Comments Other 09/15/2017 Encounter Details Date Type Department Care Team (Late st Contact Info) Description 09/15/2017 Telephone [facility] [address] [place] [address] Nanda Huitron LPN [address] [place] [address] Other Social History Tobacco Use Types Packs/Day [...] of Assessment Author Yes 03/14/2017 10:26 AM RINAT Elle Almanza LPN * Does this person [...] Elle Wolf LPN documented in this encounter Miscellaneous Notes * Telephone Encounter - Nanda Huitron LPN - 09/15/2017 9:24 AM EST Ask if ever had hysterectomy. Could not find were she did have one. documented in this encounter Plan of Treatment Upcoming Encounters Date Type Department Care Team (Late st Contact Info) Description 07/29/2024 9:00 AM EST Appointment [facility] [address] [place] [address] Jomar Kim MD [address] [place] [address] [...] HEMOGLOBIN A1C < 7.0 Result Component 5.6( 3:04 PM EST) No Rachel Rogers RMA documented as of this encounter Visit Diagnoses Not on filedocumented in this encounter Care Teams Gas Appliance Adjuster Relationship Specialty Start Date End Date Annalise Oneill MD [address] [place] [address] PCP - General Family Medicine 11/19/16 08/19/18 Garett Holt MD Internal Medicine-Gastroenterology 12/22/12 Ruiz Stokes MD [address] [place] [address] Internal Medicine-Cardiovascular Disease 07/25/14 Yenny Schwab MD 651 [facility] [address] [place] [address] Internal Medicine-Rheumatology 12/11/16 documented as of this encounter
--- OUTSIDE RECORDS SUMMARY | 2024-07-22 16:12 | XMS_ITS | Encounter Summary ---
Author Organization [place] [address] Care Team Providers Care Machine Pan Greaser Name Role Phone Garett Holt MD Unavailable [phone] Ruiz Stokes MD Unavailable [phone] Annalise Oneill MD Primary Care Provider [phone] Yenny Schwab MD Unavailable [phone] Reason for Referral * Consultation (Routine) - Closed Specialty Diagnoses / Procedures Referred By Contac t Referred To Contact General Surgery Diagnoses Hemorrhoids, unspecified hemorrhoid type Kaur Cameron MD Bikhchandani, Jai, MD Phone: tel: fax: Referral ID Status Reason Start Date Expiration Date Visits Re quested Visits Authorized [id number] Closed 12/16/2017 12/16/2018 1 99 Reason for Visit * Reason Comments Consult consent * Consultation (Routine) - Closed Specialty Diagnoses / Procedures Referred By Contac t Referred To Contact Gynecology Diagnoses Rectocele Annalise Oneill MD [address] [place] [address] Phone: tel: fax: Kaur Cameron MD Referral ID Status Reason Start Date Expiration Date Visits Re quested Visits Authorized [id number] Closed 08/19/2017 08/19/2018 1 99 Encounter Details Date Type Department Care Team (Latest Contact Info) Description 12/16/2017 2:15 PM EDT Office Visit [facility] [address] [place] [address] Kaur Cameron MD Urge urinary incontinence (Primary Dx); Morbid obesity (HCC); Hemorrhoids, unspecified hemorrhoid type Social History Tobacco Use Types Packs/Day [...] Sign Reading Time Taken Comments Blood Pressure 141/70 12/16/2017 1:35 PM EDT Pulse 88 12/16/2017 1:35 PM EDT Temperature - - Respiratory Rate - - Oxygen Saturation - - Inhaled Oxygen Concentration - - Weight 113.4 kg (250 lb) 12/16/2017 1:35 PM EDT Height - - Body Mass Index 48.82 08/19/2017 1:47 PM EST documented in this encounter Functional [...] of Assessment Author Yes 03/14/2017 10:26 AM EDElle Carter LPN * Does this person have difficulty dressing or bathing? Answer Date of Assessment Author No 03/14/2017 10:26 AM EDElle Carter LPN * Because of a physical, mental [...] Elle Wolf LPN documented in this encounter Ordered Prescriptions Prescription Sig Dispense Quantity Refills Last Filled Start Date End Date oxybutynin (DITROPAN-XL) 10 mg Oral Tablet Extended Rel 24 hr Take 1 Tab by mouth 2 times daily. 60 Tab 5 12/16/2017 08/20/2018 documented in this encounter H&P Notes * Kaur Cameron MD - 12/16/2017 2:15 PM EDT Images from the original note were not included. Kaur Cameron MD [facility] Follow Up Patient Note Alyssa Jamil 1955 Assessment: 62 y.o. female with 1. Urge urinary incontinence 2. Morbid obesity (HCC) Plan: 1) s/p UDE showing DO 2) Would not recommend surgical management 3) Urge urinary incontinence: We discussed pathophysiology of UUI. We reviewed treatment options for UUI including observation, pelvic floor physical therapy, kegels, timed voids, avoiding bladder irritants including caffeine, artificial sweeteners, wine, use of CPAP in presence of obstructive sleep apnea. We also reviewed treatment with medications, posterior tibial nerve stimulation, intradetrussor botox, and sacral neuromodulation. 4) Oxybutynin 10mg PO BID x 6 months. 5) Referral to general surgery for evaluation of hemorrhoids. The patient was here for her initial History and Physical within the last 8 weeks. She is here to review the recent urodynamic results but the majority of the visit was to discuss surgical intervention. Return in about 3 months (around 03/17/2018) for follow up with nurse practitioner. There are no changes to H&P from 11/05/2017 . HPI: Alyssa Jamil is a 62 y.o. who is here for follow up for consent. Difficult to assess understanding. With a friend. URODYNAMIC EVALUATION RESULTS Capacity of 150cc DO throughout. Past Medical History: Diagnosis Date ??? Anemia on iron ??? Ankle swelling ??? Arthritis all over ??? Asthma ??? Cancer (HCC) OVARIAN ??? Clotting disorder (HCC) ??? Diabetes mellitus (HCC) 2013 borderline ??? Fibromyalgia ??? Heartburn nausea after [...] Surgeon: Christa Chavez MD; Location: [facility] OR; Service: General ??? CARDIAC CATHETERIZATION 04/2015 ??? CHOLECYSTECTOMY 1989 ??? COLONOSCOPY ??? COLONOSCOPY 02/17/2013 Surgeon: Garett Holt MD; Location: [facility]; Service: ??? DENTAL SURGERY upper and lower teeth removed ??? UPPER GASTROINTESTINAL ENDOSCOPY ??? UPPER GASTROINTESTINAL ENDOSCOPY 02/17/2013 Surgeon: Garett Holt MD; Location: [facility]; Service: Family History Problem Relation Age of Onset ??? Heart Disease Father ??? Cataracts Father ??? Diabetes Father ??? Cancer Maternal Grandmother ??? Colon Cancer Maternal Grandmother ??? Anesth Problems Neg Hx Review of Systems: Constitutional: Denies fever, chills, [...] swollen glands, easy bruising, anemia, bleeding problems Vitals: 12/16/17 1335 BP: 141/70 Pulse: 88 Physical Exam: No physical exam required for this visit. I spent 25 minutes with the patient of which over 50% of the visit was spent counseling the patienton her options, intraoperative risks, and post operative expectations. Kaur Cameron MD, FACOG [facility] [address] [place] [address] 12/16/17 2:21 PM documented in this encounter Miscellaneous Notes * Addendum Note - Joselyn Virk LPN - 12/16/2017 2:15 PM EDTAddended by: JOSELYN VIRK on: 12/16/2017 02:50 PM Modules accepted: Orders documented in this encounter Plan of Treatment Upcoming Encounters Date Type Department Care Team (Late st Contact Info) Description 07/29/2024 9:00 AM EST [facility]ment [facility] [address] [facility] [place] [address] Jomar Kim MD [address] [place] [address] Scheduled Referrals Name Type Priority Associated Diagnoses Orde r Schedule AMB REFERRAL TO GENERAL SURGERY Outpatient Referral Routine Hemorrhoids, unspecified hemorrhoid type Ordered: 12/16/2017 documented as of this encounter Goals Goal Patient Goal Type Associated Problems Recent Progress Patient-Stated? Author Blood Pressure < 140/90 Blood Pressure 110/72(2023 2:44 PM EDT) No Rachel oRgers RMA BMI (Calculated) < 30 General 50.9(04/27/20 [...] as of this encounter Visit Diagnoses Diagnosis Urge urinary incontinence- Primary Urge incontinence Morbid obesity (HCC) Morbid obesity Hemorrhoids, unspecified hemorrhoid type documented in this encounter Care Teams Machine Pan Greaser Relationship Specialty Start Date End Date Annalise Oneill MD [address] [place] [address] PCP - General Family Medicine 11/19/16 08/19/18 Garett Holt MD Internal Medicine-Gastroenterology 12/22/12 Ruiz Stokes MD [address] [place] [id number] Internal Medicine-Cardiovascular Disease 07/25/14 Yenny Schwab MD [address] [address] Internal Medicine-Rheumatology 12/11/16 documented as of this encounter
--- OUTSIDE RECORDS SUMMARY | 2024-07-22 16:12 | XMS_ITS | Encounter Summary ---
Author Organization [place] [address] Care Team Providers Care Railroad Track Mechanic Name Role Phone Garett Holt MD Unavailable [phone] Ruiz Stokes MD Unavailable [phone] Annalise Oneill MD Primary Care Provider [phone] Yenny Schwab MD Unavailable [phone] Encounter Details Date Type Department Care Team (Late st Contact Info) Description 08/21/2017 Orders Only SEP [address] [address] Laura Alvarado, MULU Gastroesophageal reflux disease with esophagitis Social History [...] Filled Start Date End Date docusate sodium (STOOL SOFTENER) 100 mg Oral CapsuleIndications: Gastroesophageal reflux disease with esophagitis Take 1 Cap by mouth 2 times daily. 180 Cap 1 08/21/2017 01/06/2018 documented in this encounter Plan of Treatment Upcoming Encounters Date Type Department Care Team (Late st Contact Info) Description 07/29/2024 9:00 AM EST Appointment [facility] [address] [place] [address] Jomar Kim MD [address] [place] [address] documented as of this encounter Goals Goal Patient Goal Type Associated Problems Recent Progress Patient-Stated? Author Blood Pressure < 140/90 Blood Pressure 110/72(2023 2:44 PM EDT) No Rogers, Rachel Liv, RMA BMI (Calculated) < 30 General 50.9(04/27/20 [...] as of this encounter Visit Diagnoses Diagnosis Gastroesophageal reflux disease with esophagitis documented in this encounter Discontinued Medications Medication Sig Discontinue Reason Start Date End Da te docusate sodium (STOOL SOFTENER) 100 mg Oral CapsuleIndications:Gastro esophageal reflux disease with esophagitis Take 1 Cap by mouth 2 times daily. Reorder 11/19/2016 08/21/2017 documented as of this encounter Care Teams Railroad Track Mechanic Relationship Specialty Start Date End Date Annalise Oneill MD [address] [place] [address] PCP - General Family Medicine 11/19/16 08/19/18 Garett Holt MD Internal Medicine-Gastroenterology 12/22/12 Ruiz Stokes MD [address] [place] [address] [id number] Internal Medicine-Cardiovascular Disease 07/25/14 Yenny Schwab MD [address] [address] Internal Medicine-Rheumatology 12/11/16 documented as of this encounter
--- OUTSIDE RECORDS SUMMARY | 2024-07-22 16:12 | XMS_ITS | Encounter Summary ---
Author Organization [place] [address] Care Team Providers Care Surgical Appliances Salesperson Name Role Phone Garett Holt MD Unavailable [phone] Ruiz Stokes MD Unavailable [phone] Annalise Oneill MD Primary Care Provider [phone] Yenny Schwab MD Unavailable [phone] Reason for Visit * Reason Comments Follow-up * Consultation (Routine) - Closed Specialty Diagnoses / Procedures Referred By Contac t Referred To Contact Gynecology Diagnoses Rectocele Annalise Oneill MD [address] [place] [address] Phone: tel: fax: Kaur Cameron MD Referral ID Status Reason Start Date Expiration Date Visits Re quested Visits Authorized [id number] Closed 08/19/2017 08/19/2018 1 99 Encounter Details Date Type Department Care Team (Latest Contact Info) Description 11/27/2017 2:30 PM EDT Office Visit [facility] Urogyne[facility] [address] [place] [address] Lyssa Fang, FUND DEVELOPMENT MANAGER [address] [place] [address] Prolapse of posterior vaginal wall (Primary Dx) [...] Sign Reading Time Taken Comments Blood Pressure 141/64 11/27/2017 2:49 PM EDT Pulse 77 11/27/2017 2:49 PM EDT Temperature - - Respiratory Rate - - Oxygen Saturation - - Inhaled Oxygen Concentration - - Weight 115.7 kg (255 lb) 11/27/2017 2:49 PM EDT Height - - Body Mass Index 49.8 08/19/2017 1:47 PM EST documented in this [...] Elle Almanza LPN documented in this encounter Progress Notes * Lyssa Fang APRN - 11/27/2017 2:30 PM EDT Images from the original note were not included. Lyssa Fang APRN [facility] Urogynecology Follow Up Patient Note Alyssa Jamil 1955 HPI: Alyssa Jamil is a 62 y.o. who is here for follow up for prolapse. Tried a pessary. Fell out twice. Larger size is constrictive. Here to discuss her options. Wants to talk about surgery. Pt in wheelchair. Family with patient. The patient's past medical, social, surgical and family history were reviewed and there are no pertinent changes. Review of Systems: Review of Systems Constitutional: Negative for chills and fever. HENT: Negative for nosebleeds. Eyes: Negative for blurred vision and double vision. Respiratory: Negative for cough, shortness of breath and wheezing. Cardiovascular: Negative for chest pain, palpitations and leg swelling. Gastrointestinal: Negative for abdominal pain, diarrhea and vomiting. Genitourinary: Negative for dysuria, frequency and urgency. Neurological: Negative for dizziness, seizures, weakness and headaches. Psychiatric/Behavioral: Negative for depression and suicidal ideas. Physical Exam: Physical Exam Constitutional: She is oriented to person, place, and time. She appears well- developed and well-nourished. HENT: Head: Normocephalic and atraumatic. Eyes: Pupils are equal, round, and reactive to light. Neck: Normal range of motion. Neck supple. No thyromegaly present. Cardiovascular: Normal rate, regular rhythm and normal heart sounds. Pulmonary/Chest: Effort normal and breath sounds normal. She has no wheezes. Abdominal: Soft. Bowel sounds are normal. She exhibits no distension. There is no tenderness. Musculoskeletal: Normal range of motion. She exhibits no edema or tenderness. In wheelchair today, can ambulate with a cane Neurological: She is alert and oriented to person, place, and time. Skin: Skin is warm and dry. Psychiatric: She has a normal mood and affect. No results found for this visit on 11/27/17. Vitals: 11/27/17 1449 BP: 141/64 Pulse: 77 Body mass index is 49.8 kg/m??. Assessment: 62 y.o. female with 1. Prolapse of posterior vaginal wall Plan: Alyssa was seen today for follow-up. Diagnoses and all orders for this visit: Prolapse of posterior vaginal wall Offered new pessary trial with different shape. Surgical options discussed with patient and family. All questions answered. Most likely would consider closure surgery. Does reports CARRIE symptoms. Handouts given for both prolapse surgery and UDE. No further questions. Return for UDE, consent, A visit with Dr. Cameron. Lyssa Fang APRN [facility] Urogynecology [address] [place] [address] 11/27/17 4:53 PM documented in this encounter Plan of Treatment Upcoming Encounters Date Type Department Care Team (Late st Contact Info) Description 07/29/2024 9:00 AM EST Appointment [facility] [address] [place], [place] [id number] Jomar Kim MD [address] [place], [place] [id number] documented as of this encounter Goals Goal Patient Goal Type Associated Problems Recent Progress Patient-Stated? Author Blood Pressure < 140/90 Blood Pressure 110/72(2023 2:44 PM EDT) No Rachel Rogers, CAROLA BMI (Calculated) < 30 General 50.9(04/27/20 24 [...] [place] documented in this encounter Care Teams Surgical Appliances Salesperson Relationship Specialty Start Date End Date Annalise Oneill MD [address] [facility] [place] [id number] PCP - General Family Medicine 11/19/16 08/19/18 Garett Holt MD Internal Medicine-Gastroenterology 12/22/12 Ruiz Stokes MD [address] [place] [address] [id number] Internal Medicine-Cardiovascular Disease 07/25/14 Yenny Schwab MD [address] [address] Internal Medicine-Rheumatology 12/11/16 documented as of this encounter
--- OUTSIDE RECORDS SUMMARY | 2024-07-22 16:12 | XMS_ITS | Encounter Summary ---
Author Organization [place] [address] Care Team Providers Care Surveying Crew Stake Runner Name Role Phone Garett Holt MD Unavailable [phone] Ruiz Stokes MD Unavailable [phone] Annalise Oneill MD Primary Care Provider Yenny Schwab MD Unavailable [phone] Reason for Visit * Reason Comments Medication Refill Encounter Details Date Type Department Care Team (Late st Contact Info) Description 01/06/[address] [address] Annalise Oneill MD [address] [place] [address] Medication Refill Social History Tobacco Use [...] TABLET BY MOUTH DAILY 63 Tab 2 01/06/2018 8 metFORMIN (GLUCOPHAGE) 500 mg Oral TabletIndications: Type 2 diabetes mellitus without complication (HCC) TAKE 1 TABLET BY MOUTH DAILY WITH BREAKFAST 63 Tab 2 01/06/2018 8 amLODIPine (NORVASC) 10 mg Oral TabletIndications: Essential hypertension TAKE 1 TABLET BY MOUTH DAILY 63 Tab 2 01/06/2018 8 ASPIR-LOW 81 mg Oral Tablet, Delayed Release (E.C.) TAKE 1 TABLET BY MOUTH DAILY 63 Tab 2 01/06/2018 8 lisinopril (PRINIVIL;ZESTRIL) 20 mg Oral TabletIndications: Essential hypertension TAKE 1 TABLET BY MOUTH ONCE DAILY 63 Tab 2 01/06/2018 8 VITAMIN D3 1,000 unit Oral Tablet TAKE 1 TABLET BY MOUTH EVERY DAY 64 Tab 01/06/2018 8 omeprazole (PRILOSEC) 20 mg Oral Capsule, Delayed Release(E.C.) TAKE 1 CAPSULE BY MOUTH ONCE DAILY 63 Cap 01/06/2018 8 atorvastatin (LIPITOR) 40 mg Oral Tablet TAKE 1/2 TABLET (20MG) BY MOUTH ONCE DAILY 18 Tab 2 01/06/2018 8 documented in this encounter Miscellaneous Notes * Telephone Encounter - Ni Clinton RN - 01/06/2018 9:38 AM EDT Patient has apt today. Will go ahead and refill. documented in this encounter Plan of Treatment Upcoming Encounters Date Type Department Care Team (Late st Contact Info) Description 07/29/2024 9:00 AM EST Appointment [facility] [address] [facility] [place], [place] [phone] Jomar Kim MD [address] [place], [place] [phone] documented as of this encounter Goals Goal [...] track( 021 10:23 AM EDT) No Wendy Espinzoa LPN HEMOGLOBIN A1C < 7.0 Result Component [...] TABLET (20MG) BY MOUTH ONCE DAILY Reorder 11/10/2017 01/06/2018 omeprazole (PRILOSEC) 20 mg Oral Capsule, Delayed Release(E.C.) TAKE 1 CAPSULE BY MOUTH ONCE DAILY Reorder 11/10/2017 01/06/2018 cholecalciferol, vitamin D3, 1,000 unit Oral Tablet Take 1 Tab by mouth daily. Reorder 01/06/2018 lisinopril (PRINIVIL;ZESTRIL) 20 mg Oral TabletIndications:Essent ial hypertension Take 1 Tab by mouth daily. Reorder 07/01/2017 01/06/2018 amLODIPine (NORVASC) 10 mg Oral TabletIndications:Essent ial hypertension Take 1 Tab by mouth daily. Reorder 07/01/2017 01/06/2018 metFORMIN (GLUCOPHAGE) 500 mg Oral TabletIndications:Type 2 diabetes mellitus without complication, unspecified half-way insulin use status Take 1 Tab by mouth daily. with breakfast Reorder 07/01/2017 01/06/2018 loratadine (CLARITIN) 10 mg Oral TabletIndications:Season al allergic rhinitis due to pollen, unspecified chronicity Take 1 Tab by mouth daily. Reorder 07/01/2017 01/06/2018 documented as of this encounter Care Teams Surveying Crew Stake Runner Relationship Specialty Start Date End Date Annalise Oneill MD [address] [place] [address] [place] [address] PCP - General Family Medicine 11/19/16 08/19/18 Garett Holt MD Internal Medicine-Gastroenterology 12/22/12 Ruiz Stokes MD [address] [place] [address] [place] [id number] Internal Medicine-Cardiovascular Disease 07/25/14 Yenny Schwab MD [address] [facility] [address] [place] [address] Internal Medicine-Rheumatology 12/11/16 documented as of this encounter
--- OUTSIDE RECORDS SUMMARY | 2024-07-22 16:12 | XMS_ITS | Encounter Summary ---
Author Organization [place] [address] Care Team Providers Care Pharmaceutical Physician Name Role Phone Garett Holt MD Unavailable [phone] Ruiz Stokes MD Unavailable [phone] Annalise Oneill MD Primary Care Provider [phone] Yenny Schwab MD Unavailable [phone] Reason for Visit * Reason Comments Procedure * In Office Procedure (Routine) - Closed Specialty Diagnoses / Procedures Referred By Contac t Referred To Contact Diagnoses Rectocele Procedures OK COMPLEX CYSTOMETROGRAM W/VOID PRESS&URETHRAL PROFILE OK ELECTRO-UROFLOWMETRY, FIRST OK ANAL/URINARY MUSCLE STUDY OK VOIDING PRESS STUDY INTRA-ABDOMINAL VOID CHG URINALYSIS NONAUTO W/O SCOPE Kaur Cameron MD Raman, Sonali V, MD Referral ID Status Reason Start Date Expiration Date Visits Re quested Visits Authorized [id number] Closed 12/05/2017 12/05/2018 1 1 Encounter Details Date Type Department Care Team (Latest Contact Info) Description 12/10/2017 1:00 PM EDT Procedure visit [facility] Urogynecology [facility]FT [address] [place] [address] Eliza Avery RMA Urge incontinence (Primary Dx); OAB (overactive bladder); Female genital prolapse, unspecified type Social History Tobacco Use Types Packs/Day [...] documented in this encounter Progress Notes * Eliza Avery, A - 12/10/2017 1:00 PM EDT Images from the original note were not included. Urodynamic Procedure Note Alyssa Jamil 1955 Urodynamicist: MULU [place] Equipment: Industrial Toys Brandy History/Indication: Patient is a 62 y.o. female with subjective complaints of prolapse, stress incontinence, urge incontinence and urgency/ frequency who presents for an urodynamic evaluation. Procedure: The patient was taken to the Urodynamics suite and a free urine flow was obtained followed by catheterization for residual urine. A catheter was introduced to the bladder for filling. FINDINGS UroFlow: Urine Dip: normal Voided volume: 150ml PVR: 40ml CMG: First sensation: 40ml First degree: 50ml Strong desire: 60ml Max capacity: 150ml Uninhibited detrusor contraction:yes documented in this encounter Plan of Treatment Upcoming Encounters Date Type Department Care Team (Late st Contact Info) Description 07/29/2024 9:00 AM EST Appointment [facility] [address] [place], [place] [phone] Jomar Kim MD [address] [place] [address] documented as of this encounter [...] Name Priority Date/Time Associated Diagnosis Comments POCT URINALYSIS DIPSTICK Routine 12/10/2017 2:26 PM EDT Urge incontinence OAB (overactive bladder) Female genital prolapse, unspecified type documented in this encounter Results * POCT URINALYSIS DIPSTICK (12/10/2017 2:26 PM EDT) Color, UA yellow CLEAR,YELL OW,ORANGE, RUST SEP OFFICE Clarity, UA clear CLEAR,CLOU DY SEP OFFICE Glucose, UA n G/DL% SEP OFFICE Bilirubin, UA n POS/NEG SEP OFFICE Ketones, UA n POS/NEG SEP terrazzo worker Grav, UA 1.005 1.001 - 1.035 G/DL SEP OFFICE Blood, UA n POS/NEG SEP OFFICE pH, UA 6.0 5.0 - 8 SEP OFFICE Protein, UA n POS/NEG SEP OFFICE Urobilinogen, UA n 0.2 - 1.0 MG/DL SEP OFFICE Leukocytes, UA n POS/NEG SEP OFFICE Nitrite, UA n POS/NEG SEP OFFICE UA Appear POC SEP OFFICE Lot Number [id number] SEP OFFICE Expiration Date 09/07/18 SEP OFFICE SeriAl # SEP OFFICE Urine 12/10/2017 2:26 PM EDT us Kaur Orellana MD POINT OF CARE TEST ORDERABLES Final Result SEP OFFICE documented in this encounter Visit Diagnoses Diagnosis Urge incontinence- Primary OAB (overactive bladder) Hypertonicity of bladder Female genital prolapse, unspecified type documented in this encounter Care Teams Pharmaceutical Physician Relationship Specialty Start Date End Date Annalise Oneill MD [address] [place] [address] PCP - General Family Medicine 11/19/16 08/19/18 Garett Holt MD Internal Medicine-Gastroenterology 12/22/12 Ruiz Stokes MD [address] [place] [address] Internal Medicine-Cardiovascular Disease 07/25/14 Yenny Schwab MD [address] [facility] Building [address] [place] [address] Internal Medicine-Rheumatology 12/11/16 documented as of this encounter
--- OUTSIDE RECORDS SUMMARY | 2024-07-22 16:12 | XMS_ITS | Encounter Summary ---
Author Organization [place] [address] Care Team Providers Care Industrial Technician Name Role Phone Garett Holt MD Unavailable [phone] Ruiz Stokes MD Unavailable [phone] Annalise Oneill MD Primary Care Provider [phone] Yenny Schwab MD Unavailable [phone] Reason for Visit * Reason Onset Date Comments Other 01/02/2018 Encounter Details Date Type Department Care Team (Late st Contact Info) Description 01/02/2018 Telephone [facility] U[facility]ne[facility]FT [address] [place] [address] Joselyn Mcduffie LPN Other Social History Tobacco Use Types Packs/Day [...] No 03/14/2017 10:26 AM EDElle Carter LPN documented as of this encounter Mental Status * Because of a physical, mental or emotional condition, does this person have serious difficulty concentrating, remembering or making decisions? Answer Entry Date Author No 03/14/2017 10:26 AM Elle Wolf LPN documented in this encounter Miscellaneous Notes * Telephone Encounter - Joselyn Mcduffie LPN - 01/02/2018 10:54 AM EDT Call received from Anita, had multiple questions about Alyssa and medications. Per [facility] form, the only female listed is Clementina. I informed Anita that at this time, I am unable to discuss any information with her. She replied well I hope nothing happens to her then and hung up the phone. JOSE MANUEL Diane documented in this encounter Plan of Treatment Upcoming Encounters Date Type Department Care Team (Late st Contact Info) Description 07/29/2024 9:00 AM EST Appointment [facility] [address] [place] [address] Jomar Kim MD [address] [facility] [place] [place] [address] documented as of this encounter [...] on filedocumented in this encounter Care Teams Industrial Technician Relationship Specialty Start Date End Date Annalise Oneill MD [address] [place] [address] PCP - General Family Medicine 11/19/16 08/19/18 Garett Holt MD Internal Medicine-Gastroenterology 12/22/12 Ruiz Stokes MD [address] [place] [address] Internal Medicine-Cardiovascular Disease 07/25/14 Yenny Schwab MD [address] [address] Internal Medicine-Rheumatology 12/11/16 documented as of this encounter
--- OUTSIDE RECORDS SUMMARY | 2024-07-22 16:12 | XMS_ITS | Encounter Summary ---
Author Organization [place] [address] Care Team Providers Care Technical Publications Writer Name Role Phone Garett Holt MD Unavailable [phone] Ruiz Stokes MD Unavailable [phone] Annalise Oneill MD Primary Care Provider [phone] Yenny Schwab MD Unavailable [phone] Reason for Visit * Reason Comments Urinary Frequency * Consultation (Routine) - Closed Specialty Diagnoses / Procedures Referred By Contac t Referred To Contact Gynecology Diagnoses Rectocele Annalise Oneill MD [address] [place] [phone] Phone: tel: fax: Kaur Cameron MD Referral ID Status Reason Start Date Expiration Date Visits Re quested Visits Authorized [id number] Closed 08/19/2017 08/19/2018 1 99 Encounter Details Date Type Department Care Team (Latest Contact Info) Description 08/26/2017 12:00 PM EST Office Visit [facility] [address] [place] [address] Kaur Cameron MD Frequency of urination (Primary Dx); Prolapse of posterior vaginal wall Social History Tobacco Use Types Packs/Day Years [...] Sign Reading Time Taken Comments Blood Pressure 128/66 08/26/2017 1:21 PM EST Pulse 79 08/26/2017 1:21 PM EST Temperature - - Respiratory Rate - - Oxygen Saturation - - Inhaled Oxygen Concentration - - Weight 112.5 kg (248 lb) 08/26/2017 1:21 PM EST Height - - Body Mass Index 48.43 08/19/2017 1:47 PM EST documented in this [...] Author No 03/14/2017 10:26 AM Elle Wolf NAILHEAD OPERATOR documented in this encounter H&P Notes * Kaur Cameron MD - 08/26/2017 12:00 PM EST Images from the original note were not included. Kaur Cameron MD [facility] New Patient History and Physical Alyssa Jamil 1955 Referral by Annalise Oneill MD Diagnoses/Assessment: 62 y.o. female with Diagnoses and all orders for this visit: Frequency of urination - URINE CULTURE (NO STAIN); Future Prolapse of posterior vaginal wall Plan: 1) We discussed pathophysiology of pelvic organ prolapse. We reviewed management options including observation, Kegel exercises, PFPT, pessary use, and operative management including vaginal approachversus endoscopic approach, mesh based versus non mesh based approaches. 2) Pessary trial Urine for culture obtained today. Will follow up results. Relevant IUGA/AUGS/ACOG pamphlets given to patient for review and education. Return for pessary visit with nurse practitioner. Chief Complaint: Rectocele HPI: Alyssa Jamil is a 62 y.o. old who is here due to consultation by Annalise Oneill MD +prolapse Ovarian cancer? Patient is a poor historian Friend Samaria in the room answering some of questions. Occasional CARRIE +Sexually active Bladder control problem: yes Leakage: yes For how long: > 1 years Leak with cough, sneeze, or laugh: Yes Urgency: yes Prior treatments or medication for incontinence: none Bladder emptying problems: no Difficulty urinating or emptying bladder: yes For how long: > 1years Dribbling: yes Difficulty starting stream: yes Straining to empty: yes Associated bladder history: History of hematuria: no History of stone disease: no History of kidney disease: no History of recurrent UTI: no Prolapse/vaginal support problems: yes Fullness or pressure, bulge or protrusion of any vaginal tissue: yes How long have you had a protrusion or bulge? > 1years Are your symptoms worse at the end of the day? yes Do you push the protrusion back up to help with a bowel movement or to empty your bladder? No Have you ever used a pessary ( a plastic support device) for this problem? No Bowel Problem(s): no Pelvic Pain: no Bladder irritants: Caffeine intake: no Artificial sweeteners: no Snoring/CPAP use: No--was counseled to use one Sexual History: Are you currently sexually active? yes Data Sme History: : 2 C-sections: 0 History of 3rd or 4th degree laceration/forceps or vacuum: no Past Medical History: Past Medical History: Diagnosis [...] OR BIPAP PER PATIENT ??? Ulcer (HCC) Gynecology-specific Surgical History: Hysterectomy: no Oopherectomy: no Salpingectomy: no Prolapse surgery: no Vaginal surgery: no Mesh placed: no Past Surgical History: Past Surgical History: Procedure Laterality Date ??? ARTERY BIOPSY Right 01/06/2017 RIGHT TEMPORAL ARTERY BIOPSY ; Surgeon: Christa Chavez MD; Location: [facility]; Service: General ??? CARDIAC CATHETERIZATION 04/2015 ??? CHOLECYSTECTOMY 1989 ??? COLONOSCOPY ??? COLONOSCOPY 02/17/2013 Surgeon: Garett Holt MD; Location: [facility]; Service: ??? DENTAL SURGERY upper and lower teeth removed ??? UPPER GASTROINTESTINAL ENDOSCOPY ??? UPPER GASTROINTESTINAL ENDOSCOPY 02/17/2013 Surgeon: Garett Holt MD; Location: [facility]; Service: Family History: Family History Problem Relation Age of Onset ??? Heart Disease Father ??? Cataracts Father ??? Diabetes Father ??? Cancer Maternal Grandmother ??? Colon Cancer Maternal Grandmother ??? Anesth Problems Neg Hx Social History: Social History Social History ??? Marital status: [...] History Narrative ??? No narrative on file Domestic Violence Screening With whom do you currently live with: Do you feel safe at home? yes Is anyone trying to hurt you? no Occupation History: yes Current Outpatient Medications: Current Outpatient Prescriptions on File Prior to Visit Medication Sig Dispense Refill ??? amLODIPine (NORVASC) 10 mg Oral Tablet Take 1 Tab by mouth daily. 63 Tab 2 ??? aspirin (ASPIRIN) 81 mg Oral Tablet, Chewable Take 1 Tab by mouth daily. 63 Tab 2 ??? atorvastatin (LIPITOR) 20 mg Oral Tablet Take 1 Tab by mouth daily. 32 Tab 2 ??? Blood-Glucose Meter Misc Kit Please fill with what her ins will cover 1 Kit 0 ??? CALCIUM ORAL Take by mouth daily. ??? cholecalciferol, vitamin D3, 1,000 unit Oral Tablet Take 1 Tab by mouth daily. ??? docusate sodium (STOOL SOFTENER) 100 mg Oral Capsule Take 1 Cap by mouth 2 times daily. 180 Cap1 ??? fUROsemide (LASIX) 20 mg Oral Tablet Take 1 Tab by mouth daily. 30 Tab 0 ??? lisinopril (PRINIVIL;ZESTRIL) 20 mg Oral Tablet Take 1 Tab by mouth daily. 63 Tab 2 ??? loratadine (CLARITIN) 10 mg Oral Tablet Take 1 Tab by mouth daily. 63 Tab 2 ??? metFORMIN (GLUCOPHAGE) 500 mg Oral Tablet Take 1 Tab by mouth daily. with breakfast 63 Tab 2 ??? omeprazole (PRILOSEC) 20 mg Oral Capsule, Delayed Release(E.C.) Take 1 Cap by mouth daily. 63 Cap 2 ??? predniSONE (DELTASONE) 10 mg Oral Tablet Take 6 Tabs by mouth daily. (Patient taking differently: Take 10 mg by mouth daily. Pt advised to only take 1 tab until see's PCP) 180 Tab 1 ??? STOOL SOFTENER 100 mg Oral Capsule TAKE 1 CAPSULE BY MOUTH TWICE DAILY 60 Cap 2 ??? Cholecalciferol, Vitamin D3, 2,000 unit Oral Tablet Take 1/2 daily (Patient not taking: Reported on 08/26/2017) 32 Tab 2 No current facility-administered medications on file prior to visit. Allergies: Allergies Allergen Reactions ??? Amitriptyline Nausea And Vomiting ??? Amoxil [Amoxicillin] Hives ??? Clarithromycin hives ??? Clindamycin Nausea Only ??? Naproxen Rash ??? Nexium [Esomeprazole Magnesium] Hives and Rash Blisters in Mouth Review of Systems: Constitutional: Denies fever, chills, [...] swollen glands, easy bruising, anemia, bleeding problems Neurological: Denies headache, neuromuscular diseases, Other: none Are you currently taking blood thinners? No Have you ever had a venous thromboembolus? No Have you ever had a stroke? No Have you ever had a blood transfusion? No Physical Exam Vitals: 08/26/17 1321 BP: 128/66 BP Location: Left arm Patient Position: Sitting Pulse: 79 Weight: 248 lb (112.5 kg) Body mass index is 48.43 kg/m??. Appearance Development Normal Nutrition Good Deformities None Sexual characteristics Normal Neuro/Psych Orientation Time Yes Place Yes Person Yes Mood & Affect Anxiety No Depressed No Agitated No Reflexes Bilateral biceps Present Skin Element 1 Pale No Jaundice No Cyanosis No Turgor Good Element 2 Rash No Lesions No ENT External Ears Normal Nose Normal Mouth Normal Hearing Whisper test Good hearing at 3 feet Neck Swelling None Tenderness None Nodularity None Thyromegaly None Gastrointestinal Abdominal organs Masses None Tenderness None Rigidity None Rebound None Bowel Sounds Yes CVA-tenderness None Hernia Femoral None Inguinal None Liver and Spleen Liver No abnormalities Spleen No abnormalities Hemoccult Test Not indicated based on today's history Incisions Lymphatic Neck No abnormalities Groin No abnormalities Musculoskeletal Digits and Nails Normal Gait Normal Strength 5/5 strength in all four extremities Genitourinary External genitalia Atrophy yes Lesions/Warts no Development Normal well developed with appropriate hair pattern Urethral meatus Position Normal Lesion no Urethra Caruncle/Urethral prolapse no Hypermobile No Tender no Mass None Introitus Tenderness no Lesions None Abnormalities None Vagina Atrophy yes Tenderness None Cervix Present yes Discharge None Uterus Present yes Size Normal Tenderness None Adnexa Palpable no Anus & Perineum Hemorrhoids None Fissure None Warts None Digital rectal exam Normal tone, normal squeeze, no masses, or lesions Levator muscles Normal tone Mesh Present no Comments Comments none After asking the patient's permission, I completed the patient's physical and pelvic exam, and any applicable ancillary tests (i.e. Urinary catheter) without the presence of a printing and stamping supervisor. The patient voiced understanding and gave verbal consent. POP-Q Aa = -1 Ba = -1 C = -7 GH = 3 PB = 2 TVL = 7 Ap = 0 Bp = 0 D = -5 Introital Fingerbreadth: 2.5 Prolapse Stage: 2 Kegel Strength 5/5 Empty cough stress test: Negative PVR obtained with straight catheterization <100cc Labs: Lab results were reviewed in [facility] and pertinent positives are listed below (if present) Imaging: Imaging studies (both written report and images on file) were reviewed in [facility] and pertinent positives are listed below (if present) Existing Medical Record: Progress Notes, Consults and miscellaneous records were reviewed in [facility] and pertinent positives are listed below (if present) Outside paper records reviewed: none Thank you for allowing me to care for your patient. Kaur Rakesh, MD, FACOG [facility] [address] [place] [address] 08/26/2017 3:01 PM documented in this encounter Plan of Treatment Upcoming Encounters Date Type Department Care Team (Late st Contact Info) Description 07/29/2024 9:00 AM EST Appointment [facility] [address] [place] [address] Jomar Kim MD [address] [place], [place] [phone] documented as of this encounter Goals Goal [...] Diagnosis Comments URINE CULTURE (NO STAIN) Routine 08/26/2017 2:03 PM EST Frequency of urination documented in this encounter Results * URINE CULTURE (NO STAIN) (08/26/2017 2:03 PM EST) Culture No growth at 30 hours. 08/28/2017 7:42 AM EST [facility] Urine URINE SPECIMEN OBTAINED VIA STRAIGHT CATHETER / Unknown 08/26/2017 2:03 PM EST 08/26/2017 5:24 PM EST us Kaur Orellana MD MICROBIOLOGY - GENERAL ORDERA BLES Final Result [facility] [address] [address] documented in this encounter Visit Diagnoses Diagnosis Frequency of urination- Primary Urinary frequency Prolapse of posterior vaginal wall Unspecified prolapse of vaginal middleton documented in this encounter Care Teams Technical Publications Writer Relationship Specialty Start Date End Date Annalise Oneill MD [address] [place] [phone] PCP - General Family Medicine 11/19/16 08/19/18 Garett Holt MD Internal Medicine-Gastroenterology 12/22/12 Ruiz Stokes MD [address] [place] [address] Internal Medicine-Cardiovascular Disease 07/25/14 Yenny Schwab MD [address] [address] Internal Medicine-Rheumatology 12/11/16 documented as of this encounter
--- OUTSIDE RECORDS SUMMARY | 2024-07-22 16:12 | XMS_ITS | Encounter Summary ---
Author Organization [place] [address] Care Team Providers Care Mine Engineering Superintendent Name Role Phone Garett Holt MD Unavailable [phone] Ruiz Stokes MD Unavailable [phone] Annalise Oneill MD Primary Care Provider [phone] Yenny Schwab MD Unavailable [phone] Reason for Visit * Reason Comments Follow-up Encounter Details Date Type Department Care Team (Latest Contact Info) Description 09/17/2017 12:15 PM EST Office Visit [facility] [address] [place] [address] Kaur Cameron MD Prolapse of [...] Sign Reading Time Taken Comments Blood Pressure 125/82 09/17/2017 12:22 PM EST Pulse 78 09/17/2017 12:22 PM EST Temperature - - Respiratory Rate - - Oxygen Saturation - - Inhaled Oxygen Concentration - - Weight 112.5 kg (248 lb) 09/17/2017 12:22 PM EST Height - - Body Mass [...] Progress Notes * Kaur Cameron MD - 09/17/2017 12:15 PM EST Images from the original note were not included. Kaur Cameron MD [facility] Pessary Patient Note Alyssa Jamil 1955 Assessment: 62 y.o. female with 1. Prolapse of posterior vaginal wall Plan: 1) Pessary placed without any difficulty 2) Precautions given to call if any issues with urination, defecation, spotting, or pain 3) Follow up in 3 months Return in about 4 weeks (around 10/15/2017) for pessary visit with nurse practitioner. HPI: Alyssa Jamil is a 62 y.o. who is here for pessary visit from 08/26/2017 for CARRIE/Defecatory dysfunction There are no changes to H & [...] BIOPSY ; Surgeon: Christa Chavez MD; Location: [facility] OR; Service: General ??? CARDIAC CATHETERIZATION 04/2015 ??? CHOLECYSTECTOMY 1989 ??? COLONOSCOPY ??? COLONOSCOPY 02/17/2013 Surgeon: Garett Holt MD; Location: [facility]; Service: ??? DENTAL SURGERY upper and lower teeth removed ??? UPPER GASTROINTESTINAL ENDOSCOPY ??? UPPER GASTROINTESTINAL ENDOSCOPY 02/17/2013 Surgeon: Garett Holt MD; Location: [facility]; Service: Family History Problem Relation Age of Onset ??? Heart Disease Father ??? Cataracts Father ??? Diabetes Father ??? Cancer Maternal Grandmother ??? Colon Cancer Maternal Grandmother ??? Anesth Problems Neg Hx Vitals: 09/17/17 1222 BP: 125/82 Pulse: 78 Review of Systems: Constitutional: Denies fever, chills, [...] problems Physical Exam: Vaginal exam performed #4 pessary placed No expulsion with movement, valsalva, or urination 1 fingerbreadth admitted around pessary Kaur Cameron MD, FACOG [facility] [address] [place] [address] 09/17/2017 1:18 PM documented in this encounter Plan of Treatment Upcoming Encounters Date Type Department Care Team (Late st Contact Info) Description 07/29/2024 9:00 AM EST Appointment [facility] [address] [place] [address] Jomar Kim MD [address] [place] [phone] documented as of this encounter Goals Goal [...] middleton documented in this encounter Care Teams Mine Engineering Superintendent Relationship Specialty Start Date End Date Annalise Oneill MD [address] [place] [phone] PCP - General Family Medicine 11/19/16 08/19/18 Garett Holt MD Internal Medicine-Gastroenterology 12/22/12 Ruiz Stokes MD [address] [place] [phone] Internal Medicine-Cardiovascular Disease 07/25/14 Yenny Schwab MD [address] [facility] [address] [place] [address] Internal Medicine-Rheumatology 12/11/16 documented as of this encounter
--- OUTSIDE RECORDS SUMMARY | 2024-07-22 16:12 | XMS_ITS | Encounter Summary ---
Author Organization [place] [address] Care Team Providers Care Dispatch Specialist Name Role Phone Garett Holt MD Unavailable [phone] Ruiz Stokes MD Unavailable [phone] Annalise Oneill MD Primary Care Provider [phone] Yenny Schwab MD Unavailable [phone] Reason for Visit * Reason Onset Date Comments Other 12/18/2017 Encounter Details Date Type Department Care Team (Late st Contact Info) Description 12/18/2017 Telephone [facility] [address] [place] [address] Kaur Cameron MD Other Social History Tobacco Use Types Packs/Day [...] Telephone Encounter - Joselyn Mcduffie LPN - 12/19/2017 2:16 PM EDT Recv'd call from person who identified themselves as patients and gave no specific name. States that they are picking up rx today, but wants to speak with someone regarding Alyssa's care. I informed him that d/t not having authorization to speak with them, unfortunately, I cannot discuss any patient info. He then states well you wont have to worry about that because the next call we are going to make is to an employment law attorney and malcolm you all for mistreating her. He then stated alyssa they willonly talk to you Verified patient on the phone via name, , I asked patient if she had began taking oxybutynin and she informed me that she will today. I asked if she had any other questions or con cerns that I could assist her with today, and patient reports bilateral hip pain. Patient was instructed that she can contact her PCP, as our specialty is bladder/pelvic. Patient was also informed that while at her PCP, she can fill out ACF and give us permission to speak with who she chooses. Patient verbalized understanding. Patient has no further questions, did not speak in to glass maker for a few minutes and then hung up the phone. JOSE MANUEL [place] * Telephone Encounter - Eliza Avery RMA - 12/19/2017 12:18 PM EDT Unfortunately we are unable to discuss pt info with caregiver as there is no documentation that sheis patient's POA and is not listed on any current ACF. Attempted to call pt to notify her urogyn issue (UUI) is not treated with surgery. It is treated with medication which is why she was given oxybutynin Unable to leave vm and went to the busy signal. If caregiver calls back please tell her we are sorry but we are unable to give out pt info and to have pt call us. * Telephone Encounter - Lolita Mtz, Clerical Staff - 12/18/2017 3:39 PM EDT Pt caregiver called wanting to know what was talked about in office visit because caregiver wasn't there. Pt had other people with her.Both pt and other person was confused why pt couldn't have surgery please call and advise caregiver enedina. documented in this encounter Plan of Treatment Upcoming Encounters Date Type Department Care Team (Late st Contact Info) Description 07/29/2024 9:00 AM EST Appointment [facility] [address] [place] [address] Jomar Kim MD [address] [place] [address] documented as of this encounter Goals Goal Patient Goal Type Associated Problems Recent Progress Patient-Stated? Author Blood Pressure < 140/90 Blood Pressure 110/72(2023 2:44 PM EDT) No Rachel Rogers RMA BMI (Calculated) < 30 General 50.9(04/27/20 2:44 PM EDT) No Rachel Rogers RMA Eat better, exercise, reach an ideal body weight General No Ni Clinton, AMTT Stay Tobacco Free Lifestyle On track( 021 10:23 AM EDT) No Wendy Espinoza LPN HEMOGLOBIN A1C < 7.0 Result Component 5.6( 3:04 PM EST) No Rachel Rogers RMA documented as of this encounter Visit Diagnoses Not on filedocumented in this encounter Care Teams Dispatch Specialist Relationship Specialty Start Date End Date Annalise Oneill MD [address] [place] [phone] PCP - General Family Medicine 11/19/16 08/19/18 Garett Holt MD Internal Medicine-Gastroenterology 12/22/12 Ruiz Stokes MD [address] [place] [address] Internal Medicine-Cardiovascular Disease 07/25/14 Yenny Schwab MD [address] [facility] [address] [place] [address] Internal Medicine-Rheumatology 12/11/16 documented as of this encounter
--- OUTSIDE RECORDS SUMMARY | 2024-07-22 16:12 | XMS_ITS | Encounter Summary ---
Author Organization [place] [address] Care Team Providers Care Lending Activities Supervisor Name Role Phone Garett Holt MD Unavailable [phone] Ruiz Stokes MD Unavailable [phone] Annalise Oneill MD Primary Care Provider Yenny Schwab MD Unavailable [phone] Reason for Visit * Reason Onset Date Comments Paperwork/forms 11/13/2017 Encounter Details Date Type Department Care Team (Late st Contact Info) Description 11/13/2017 Telephone [facility] [address] [place] [address] Annalise Oneill MD [address] [place] [phone] Paperwork/forms Social History Tobacco Use Types Packs/Day Years [...] encounter Miscellaneous Notes * Telephone Encounter - Bridget Gao RMA - 11/18/2017 9:13 AM EDT No answer x2, paper will be at lead front desk agent * Telephone Encounter - Bridget Gao RMA - 11/13/2017 4:49 PM EST Pt dropped of paper for disability that wasn't completed as a part of her paperwork, ready for pickup/ no answer when I tried to call patient, paper is on my desk if she comes to get it, I will try again on Friday if we havent heard back. documented in this encounter Plan of Treatment Upcoming Encounters Date Type Department Care Team (Late st Contact Info) Description 07/29/2024 9:00 AM EST Appointment [facility] [address] [place] [address] Jomar Kim MD [address] [place] [address] documented as of this encounter [...] on filedocumented in this encounter Care Teams Lending Activities Supervisor Relationship Specialty Start Date End Date Annalise Oneill MD [address] [place] [address] PCP - General Family Medicine 11/19/16 08/19/18 Garett Holt MD Internal Medicine-Gastroenterology 12/22/12 Ruiz Stokes MD [address] [facility] [place] [address] Internal Medicine-Cardiovascular Disease 07/25/14 Yenny Schwab MD [address] [place] [address] Internal Medicine-Rheumatology 12/11/16 documented as of this encounter
--- OUTSIDE RECORDS SUMMARY | 2024-07-22 16:12 | XMS_ITS | Encounter Summary ---
Author Organization [place] [address] Care Team Providers Care Tail Edger Name Role Phone Garett Holt MD Unavailable [phone] Ruiz Stokes MD Unavailable [phone] Annalise Oneill MD Primary Care Provider Yenny Schwab MD Unavailable [phone] Reason for Visit * Reason Onset Date Comments Paperwork/forms 10/27/2017 Encounter Details Date Type Department Care Team (Late st Contact Info) Description 10/27/2017 Telephone [facility] [address] [place] [address] Annalise Oneill MD [address] [place] [phone] Paperwork/forms Social History Tobacco Use Types [...] Telephone Encounter - Nanda Huitron LPN - 10/27/2017 9:42 AM EST Spouse notified. Will picket labor union paper this pm. * Telephone Encounter - Ni Clinton RN - 10/27/2017 8:15 AM EST Please call let patient know her form her daughter dropped off is ready for picket labor union. documented in this encounter Plan of Treatment Upcoming Encounters Date Type Department Care Team (Late st Contact Info) Description 07/29/2024 9:00 AM EST Appointment [facility] [address] [place] [address] Jomar Kim MD [address] [place] [address] documented as of this encounter [...] on filedocumented in this encounter Care Teams Tail Edger Relationship Specialty Start Date End Date Annalise Oneill MD [address] [place] [address] PCP - General Family Medicine 11/19/16 08/19/18 Garett Holt MD Internal Medicine-Gastroenterology 12/22/12 Ruiz Stokes MD [address] [place] [address] Internal Medicine-Cardiovascular Disease 07/25/14 Yenny Schwab MD [address] [address] Internal Medicine-Rheumatology 12/11/16 documented as of this encounter
--- OUTSIDE RECORDS SUMMARY | 2024-07-22 16:12 | XMS_ITS | Encounter Summary ---
Author Organization [place] [address] Care Team Providers Care Manager Scientific Name Role Phone Garett Holt MD Unavailable Ruiz Stokes MD Unavailable [phone] Annalise Oneill MD Primary Care Provider [phone] Yenny Schwab MD Unavailable [phone] Reason for Referral * Consultation (Routine) - Closed Specialty Diagnoses / Procedures Referred By Contac t Referred To Contact Ophthalmology Diagnoses Type 2 diabetes mellitus without complication, unspecified whether buttermaker insulin use (HCC) Annalise Oneill MD [address] [place] [id number] Phone: tel: fax: [facility] Referral ID Status Reason Start Date Expiration Date Visits Re quested Visits Authorized [id number] Closed 01/06/2018 01/06/2019 1 99 Reason for Visit * Reason Comments Annual Exam 62 year old female m edicare well exam Abdominal Pain c/o to her LLQ, she states she has been seeing Dr. Cameron for her bladder issues Otalgia pain to her RT ear t he sensation of something moving in her ear Diabetes Encounter Details Date Type Department Care Team (Late st Contact Info) Description 01/06/2018 3:10 PM EDT Office Visit [facility] [address] [place] [address] Annalise Oneill MD [address] [place] [address] Abdominal pain, LLQ (left lower quadrant) (Primary Dx); Type 2 diabetes mellitus without complication, unspecified whether correction insulin use (HCC); Temporal arteritis (HCC); Obesity, Class III, BMI 40-49.9 (morbid obesity) (HCC); ETD (Eustachian tube dysfunction), right; Medicare annual wellness visit, subsequent Social History Tobacco Use Types Packs/Day Years [...] Sign Reading Time Taken Comments Blood Pressure 122/80 01/06/2018 3:54 PM EDT Pulse 68 01/06/2018 3:54 PM EDT Temperature 36.8 ??C (98.2 ??F) 01/06/2018 3:54 PM ED T Respiratory Rate 20 01/06/2018 3:54 PM EDT Oxygen Saturation - - Inhaled Oxygen Concentration - - Weight 115.7 kg (255 lb) 01/06/2018 3:54 PM EDT Height 152.4 cm (5') 01/06/2018 3:54 PM EDT Body Mass Index 49.8 01/06/2018 3:54 PM EDT documented in this encounter Functional [...] Filled Start Date End Date fUROsemide (LASIX) 20 mg Oral Tablet Take 1 Tab by mouth daily as needed. 30 Tab 2 01/06/2018 08/20/2018 polyethylene glycol (GLYCOLAX) 17 gram/dose Oral PowderIndications:A bdominal pain, LLQ (left lower quadrant) Take 17 g by mouth daily for 30 days. 510 g 2 01/06/2018 02/05/2018 fluticasone (FLONASE) 50 mcg/actuation Nasl [place], SuspensionIndicatio ns:ETD (Eustachian tube dysfunction), right 1 [place] by Nasal route daily. 1 Bottle 2 01/06/2018 10/27/2018 documented in this encounter Progress Notes * Annalise Oneill MD - 01/06/2018 3:10 PM EDT Vitals: 01/06/18 1554 BP: 122/80 Pulse: 68 Resp: 20 Temp: 98.2 ??F (36.8 ??C) Weight: 255 lb (115.7 kg) Height: 5' (1.524 m) Chief Complaint Patient presents with ??? Annual Exam 62 year old female medicare well exam ??? Abdominal Pain c/o to her LLQ, she states she has been seeing Dr. Cameron for her bladder issues ??? Otalgia pain to her RT ear the sensation of something moving in her ear ??? Diabetes HPI: Medicare Wellness Assessment Flowsheet Version: Ms. Jamil is a 62 y.o. female here for an Subsequent Annual Medicare Wellness Assessment. Below are the results from wellness category assessments administered throughout the year compiled for review as part of today's assessment. Fall Risk Assessment Has the patient had any fall with injury in the past year?: Yes Has the patient had 2 or more falls in the past year?: Yes Is the patient able to sit without assistance?: Yes Is the patient able to get up without assistance?: Yes Does the patient have a difficult time ambulating when first getting up?: Yes (obese) Does the patient have rugs or runners in the home?: No Does the patient have grab bars in the bathroom?: No Does the patient have handrails for all inside or outside stairs?: Yes (In office Assessment Only): Is the patient able to ambulate without assistance/device and with a gait steady?: Yes (In office Assessment Only): Is the patient able to get out of the exam chair and ambulate steadilyin less than 30 second?: Yes Functional Status Assessment Functional Level: partial assistance Functional Mobility Assessment: independent w/o assist device Assessment of transportation needs: dependent on other/public transportation Functional Activities of Daily Living Limitations: bathing/hygiene Activities of Daily Living Assistive Device Assessment Assistive Devices: None Osteoporosis Screening Assessment Has the patient had a DEXA scan in the past 2 years?: Yes Abnormal Pains Assessment Excluding what you would consider normal aches and pains for your age and medical condition, do youhave any unusual or worrisome pains?: No PHQ Depression Screening Results Little interest or pleasure in doing things: 0 Feeling down, depressed, or hopeless: 0 PHQ-2 Total Score: 0 PHQ-9 Total Score: 0 Advanced Directive Evaluation Does the patient have an Advanced Directive?: No Advance Care Planning Guide Given?: No (For [...] 0 Mini Cog Dementia Screening tool results Dementia: Negative No exam data present No results found for this visit on 01/06/18. Patient Active Problem List Diagnosis ??? Esophageal [...] without complication (HCC) ??? Morbid obesity (HCC) Past Medical History: Diagnosis Date ??? Anemia [...] BIOPSY ; Surgeon: Christa Chavez MD; Location: [facility] [place] [facility]; Service: General ??? CARDIAC CATHETERIZATION 04/2015 ??? CHOLECYSTECTOMY 1989 ??? COLONOSCOPY ??? COLONOSCOPY 02/17/2013 Surgeon: Garett Holt MD; Location: [facility]; Service: ??? DENTAL SURGERY upper [...] to Visit Medication Sig Dispense Refill ??? Blood-Glucose Meter Misc Kit Please fill with what her ins will cover 1 Kit 0 ??? CALCIUM ORAL Take by mouth daily. ??? Cholecalciferol, Vitamin D3, 2,000 unit Oral Tablet Take 1/2 daily 32 Tab 2 ??? oxybutynin (DITROPAN-XL) 10 mg Oral Tablet Extended Rel 24 hr Take 1 Tab by mouth 2 times daily. 60 Tab 5 ??? STOOL SOFTENER 100 mg Oral Capsule TAKE 1 CAPSULE BY MOUTH TWICE DAILY 60 Cap 2 No current facility-administered medications on file [...] History Narrative ??? No narrative on file Family History Problem Relation Age of Onset ??? Heart Disease Father ??? Cataracts Father ??? Diabetes Father ??? Cancer Maternal Grandmother ??? Colon Cancer Maternal Grandmother ??? Anesth Problems Neg Hx Immunization History Administered Date(s) Administered ??? Pneumococcal Polysaccharide 23 Valent 11/15/2015 ??? Tdap 01/06/2013 Health Maintenance Topic Date Due ??? Zoster (1) 2016 ??? Annual Wellness Exam 07/09/2017 ??? Lipids 11/19/2017 ??? Hemoglobin A1c 12/30/2017 ??? Breast Cancer Screening 11/14/2017 ??? Cervical Cancer Screening 03/27/2018 ??? Microalbuminuria 08/19/2018 ??? Colon Cancer Screening: Colonoscopy 02/17/2023 ??? Influenza Vaccine Addressed ??? Pneumococcal Vaccine (Medium Risk) 19-64 Completed ??? Hepatitis C Screening Completed Health Maintenance Due Topic Date Due ??? Zoster (1) 2016 ??? Annual Wellness Exam 07/09/2017 ??? Lipids 11/19/2017 ??? Hemoglobin A1c 12/30/2017 ??? Breast Cancer Screening 11/14/2017 Patient Care Team: Annalise Oneill MD as PCP - General (Family Medicine) [...] the practice. === Additional issues addressed today: DIABETES FOLLOW UP Nutrition: has not been following a healthy diet. Active Endocrine symptoms include: none. currently checking blood glucose 1 times daily. Blood glucose readings: fasting range: 140 {0 episodes of hypoglycemia since their last office visit. Paresthesias in the hands or feet: no Insulin tx: no Eye exam in the past year: no Lab Results Component Value Date HGBA1C 6.0 07/01/2017 Lab Results Component Value Date LDLCALC 158 (H) 11/19/2016 Lab Results Component Value Date GFRAFRAM 83 07/01/2017 GFRNONAFRAM 72 07/01/2017 Lab Results Component Value Date MICROALBUR 0 08/19/2017 URINEMICROAL 13.4 05/31/2014 Patient denies any exertional chest pain, dyspnea, palpitations, syncope, orthopnea, edema or paroxysmal nocturnal dyspnea. 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 Vision blurry at time Feels a movement in the right ear-- worried a bug could be in it. C/o intermittent LLQ pain and low back pain since starting bladder medication. C/o bladder medicine not decrease urinary output but then states she drinks all day Bowel movements every 3 days or more Intermittent left leg swelling. Out of lasix Review of Systems Constitutional: Negative for activity change, chills and fever. HENT: Positive for ear pain (bilat). Eyes: Negative for visual disturbance. Respiratory: Positive for shortness of breath (with exertion d/t obesity). Negative for cough. Cardiovascular: Negative for chest pain, palpitations and leg swelling. Gastrointestinal: Negative for abdominal pain, constipation, diarrhea and nausea. Endocrine: Negative for polydipsia and polyuria. Musculoskeletal: Positive for arthralgias, back pain and gait problem. Neurological: Negative for dizziness, syncope and headaches. Physical Exam Constitutional: She is oriented to person, place, and time. She appears well- developed and well-nourished. No distress. HENT: Head: Normocephalic. Right Ear: External ear normal. A middle ear effusion is present. Left Ear: Tympanic membrane and external ear normal. Nose: Nose normal. No mucosal edema. Mouth/Throat: Oropharynx is clear and moist. No oropharyngeal exudate or posterior oropharyngeal erythema. No temporal artery tenderness to palpation Eyes: Conjunctivae and EOM are normal. Pupils are equal, round, and reactive to light. Neck: Normal range of motion. Neck supple. Carotid bruit is not present. No thyromegaly present. Cardiovascular: Normal rate, regular rhythm, normal heart sounds and normal pulses. Exam reveals nogallop and no friction rub. No murmur heard. Pulmonary/Chest: Effort normal and breath sounds normal. She has no wheezes. She has no rhonchi. She has no rales. Abdominal: Soft. Bowel sounds are normal. She exhibits no distension and no mass. There is no tenderness. Musculoskeletal: She exhibits edema (mild LLE). Lymphadenopathy: She has no cervical adenopathy. Neurological: She is alert and oriented to person, place, and time. She has normal reflexes. No cranial nerve deficit. Skin: Skin is warm and dry. No lesion and no rash noted. Psychiatric: She has a normal mood and affect. Her behavior is normal. Judgment normal. Vitals reviewed. See time date stamps in the EMR for other pertient history components reviewed as part of today's encounter. [facility] Flowsheet was completed/reviewed as part of today's visit. Educated patient regarding the diagnosis, medication/treatment, goals, self- management tools and instructions based on their care plan. They verbalized understanding of the education given on the After Visit Summary [AVS] for today's visit. A copy of the AVS was provided either in writing and/or via [employer]. A new medicine was prescribed during this [...] Diagnoses and all orders for this visit: Abdominal pain, LLQ (left lower quadrant) Comments: suspect secondary to constipation. add miralax Orders: - polyethylene glycol (GLYCOLAX) 17 gram/dose Oral Powder; Take 17 g by mouth daily for 30 days. Dispense: 510 g; Refill: 2 Type 2 diabetes mellitus without complication, unspecified whether buttermaker insulin use (HCC) (Chronic) - AMB REFERRAL TO OPHTHALMOLOGY - HEMOGLOBIN A1C; Future - COMPREHENSIVE METABOLIC PANEL; Future - LIPID PANEL REFLEX; Future - HCC STABLE Temporal arteritis (HCC) (Chronic) - SEDIMENTATION RATE AUTOMATED; Future - C-REACTIVE PROTEIN; Future - HCC STABLE Obesity, Class III, BMI 40-49.9 (morbid obesity) (HCC) (Chronic) - HCC WEIGHT LOSS ETD (Eustachian tube dysfunction), right - fluticasone (FLONASE) 50 mcg/actuation Nasl [place], Suspension; 1 [place] by Nasal route daily. Dispense: 1 Bottle; Refill: 2 Medicare annual wellness visit, subsequent Comments: wellness questions and health maintenance recommendations reviewed. Other orders - fUROsemide (LASIX) 20 mg Oral Tablet; Take 1 Tab by mouth daily as needed. Dispense: 30 Tab; Refill: 2 Discussed healthy diet and exercise. Cancer screening status and recommendations reviewed. Immunization status reviewed and appropriate vaccinations recommended. Cholesterol and glucose screening recommendations discussed. Daily calcium and Vit D recommendations reviewed. Barriers to health care-- poor compliance documented in this encounter Miscellaneous Notes * Patient Instructions - Ni Clinton RN - 01/06/2018 3:10 PM EDT Health Maintenance, Female Adopting a healthy lifestyle and getting preventive care can go a long way to promote health and wellness. Talk with your health care provider about what schedule of regular examinations is right foryou. This is a good chance for you to check in with your provider about disease prevention and staying healthy. In between checkups, there are plenty of things you can do on your own. Experts have done a lot of research about which lifestyle changes and preventive measures are most likely to keep you healthy. Ask your health care provider for more information. WEIGHT AND DIET Eat a healthy diet ?? Be sure to include plenty of vegetables, fruits, low-fat dairy products, and lean protein. ?? Do not eat a lot of foods high in solid fats, added sugars, or salt. ?? Get regular exercise. This is one of the most important things you can do for your health. ? Most adults should exercise for at least 150 minutes each week. The exercise should increase yourheart rate and make you sweat (moderate-intensity exercise). ? Most adults should also do strengthening exercises at least twice a week. This is in addition to the moderate-intensity exercise. ?? Maintain a healthy weight ?? Body mass index (BMI) is a measurement that can be used to identify possible weight problems. Itestimates body fat based on height and weight. Your health care provider can help determine your BMI and help you achieve or maintain a healthy weight. ?? For females 20 years of age and older: ?? ? A BMI below 18.5 is considered underweight. ? A BMI of 18.5 to 24.9 is normal. ? A BMI of 25 to 29.9 is considered overweight. ? A BMI of 30 and above is considered obese. ?? Watch levels of cholesterol and blood lipids ?? You should start having your blood tested for lipids and cholesterol at 20 years of age, then have this test every 5 years. ?? You may need to have your cholesterol levels checked more often if: ? Your lipid or cholesterol levels are high. ? You are older than 50 years of age. ? You are at high risk for heart disease. ?? CANCER SCREENING ? Lung Cancer ?? Lung cancer screening is recommended for adults 55-80 years old who are at high risk for lung cancer because of a history of smoking. ?? A yearly low-dose CT scan of the lungs is recommended for people who: ? Currently smoke. ? Have quit within the past 15 years. ? Have at least a 28-edfu-rdvd history of smoking. A pack year is smoking an average of one pack ofcigarettes a day for 1 year. ?? Yearly screening should continue until it has been 15 years since you quit. ?? Yearly screening should stop if you develop a health problem that would prevent you from having lung cancer treatment. ?? Breast Cancer ?? Practice breast self-awareness. This means understanding how your breasts normally appear and feel. ?? It also means doing regular breast self-exams. Let your health care provider know about any changes, no matter how small. ?? If you are in your 20s or 30s, you should have a clinical breast exam (CBE) by a health care provider every 1-3 years as part of a regular health exam. ?? If you are 40 or older, have a CBE every year. Also consider having a breast X-ray (mammogram) every year. ?? If you have a family history of breast cancer, talk to your health care provider about genetic screening. ?? If you are at high risk for breast cancer, talk to your health care provider about having an MRIand a mammogram every year. ?? Breast cancer gene (BRCA) assessment is recommended for women who have family members with BRCA-related cancers. BRCA-related cancers include: ? Breast. ? Ovarian. ? Tubal. ? Peritoneal cancers. ?? Results of the assessment will determine the need for genetic counseling and BRCA1 and BRCA2 testing. Cervical Cancer Your health care provider may recommend that you be screened regularly for cancer of the pelvic organs (ovaries, uterus, and vagina). This screening involves a pelvic examination, including checking for microscopic changes to the surface of your cervix (Pap test). You may be encouraged to have thisscreening done every 3 years, beginning at age 21. ?? For women ages 30-65, health care providers may recommend pelvic exams and Pap testing every 3 years, or they may recommend the Pap and pelvic exam, combined with testing for human papilloma virus(HPV), every 5 years. Some types of HPV increase your risk of cervical cancer. Testing for HPV may also be done on women of any age with unclear Pap test results. ?? Other health care providers may not recommend any screening for non women who are considered low risk for pelvic cancer and who do not have symptoms. Ask your health care provider if a screening pelvic exam is right for you. ?? If you have had past treatment for cervical cancer or a condition that could lead to cancer, youneed Pap tests and screening for cancer for at least 20 years after your treatment. If Pap tests have been discontinued, your risk factors (such as having a new sexual partner) need to be reassessed to determine if screening should resume. Some women have medical problems that increase the chance of getting cervical cancer. In these cases, your health care provider may recommend more frequent screening and Pap tests. Colorectal Cancer ?? This type of cancer can be detected and often prevented. ?? Routine colorectal cancer screening usually begins at 50 years of age and continues through 75 years of age. ?? Your health care provider may recommend screening at an earlier age if you have risk factors forcolon cancer. ?? Your health care provider may also recommend using home test kits to check for hidden blood in the stool. ?? A small camera at the end of a tube can be used to examine your colon directly (sigmoidoscopy orcolonoscopy). This is done to check for the earliest forms of colorectal cancer. ?? Routine screening usually begins at age 50. ?? Direct examination of the colon should be repeated every 5-10 years through 75 years of age. However, you may need to be screened more often if early forms of precancerous polyps or small growths are found. Skin Cancer ?? Check your skin from head to toe regularly. ?? Tell your health care provider about any new moles or changes in moles, especially if there is achange in a mole's shape or color. ?? Also tell your health care provider if you have a mole that is larger than the size of a pencil eraser. ?? Always use sunscreen. Apply sunscreen liberally and repeatedly throughout the day. ?? Protect yourself by wearing long sleeves, pants, a wide-brimmed hat, and sunglasses whenever youare outside. HEART DISEASE, DIABETES, AND HIGH BLOOD PRESSURE ?? High blood pressure causes heart disease and increases the risk of stroke. High blood pressure is more likely to develop in: ? People who have blood pressure in the high end of the normal range (130-139/85-89 mm Hg). ? People who are overweight or obese. ? People who are . ?? If you are 18-39 years of age, have your blood pressure checked every 3-5 years. If you are 40 years of age or older, have your blood pressure checked every year. You should have your blood pressure measured twice--once when you are at a hospital or clinic, and once when you are not at a hospital or clinic. Record the average of the two measurements. To check your blood pressure when you are not at a hospital or clinic, you can use: ? An automated blood pressure machine at a pharmacy. ? A home blood pressure monitor. ?? If you are between 55 years and 79 years old, ask your health care provider if you should take aspirin to prevent strokes. ?? Have regular diabetes screenings. This involves taking a blood sample to check your fasting blood sugar level. ? If you are at a normal weight and have a low risk for diabetes, have this test once every three years after 45 years of age. ? If you are overweight and have a high risk for diabetes, consider being tested at a younger age or more often. PREVENTING INFECTION Hepatitis B ?? If you have a higher risk for hepatitis B, you should be screened for this virus. You are considered at high risk for hepatitis B if: ? You were born in a country where hepatitis B is common. Ask your health care provider which countries are considered high risk. ? Your parents were born in a high-risk country, and you have not been immunized against hepatitis B (hepatitis B vaccine). ? You have HIV or AIDS. ? You use needles to inject street drugs. ? You live with someone who has hepatitis B. ? You have had sex with someone who has hepatitis B. ? You get hemodialysis treatment. ? You take certain medicines for conditions, including cancer, organ transplantation, and autoimmune conditions. Hepatitis C ?? Blood testing is recommended for: ? Everyone born from 1945 through 1965. ? Anyone with known risk factors for hepatitis C. Sexually transmitted infections (STIs) ?? You should be screened for sexually transmitted infections (STIs) including gonorrhea and chlamydia if: ? You are sexually active and are younger than 24 years of age. ? You are older than 24 years of age and your health care provider tells you that you are at risk for this type of infection. ? Your sexual activity has changed since you were last screened and you are at an increased risk for chlamydia or gonorrhea. Ask your health care provider if you are at risk. ?? If you do not have HIV, but are at risk, it may be recommended that you take a prescription medicine daily to prevent HIV infection. This is called pre- exposure prophylaxis (PrEP). You are considered at risk if: ? You are sexually active and do not regularly use condoms or know the HIV status of your partner(s). ? You take drugs by injection. ? You are sexually active with a partner who has HIV. Talk with your health care provider about whether you are at high risk of being infected with HIV. If you choose to begin PrEP, you should first be tested for HIV. You should then be tested every 3 months for as long as you are taking PrEP. ?? If you are premenopausal and you may become , ask your health care provider about preconception counseling. ?? If you may become , take 400 to 800 micrograms (mcg) of folic acid every day. ?? If you want to prevent , talk to your health care provider about control (contraception). OSTEOPOROSIS AND MENOPAUSE ?? Osteoporosis is a disease in which the bones lose minerals and strength with aging. This can result in serious bone fractures. Your risk for osteoporosis can be identified using a bone density scan. ?? If you are 65 years of age or older, or if you are at risk for osteoporosis and fractures, ask your health care provider if you should be screened. ?? Ask your health care provider whether you should take a calcium or vitamin D supplement to loweryour risk for osteoporosis. ?? Menopause may have certain physical symptoms and risks. ?? Hormone replacement therapy may reduce some of these symptoms and risks. Talk to your health care provider about whether hormone replacement therapy is right for you. HOME CARE INSTRUCTIONS ?? Schedule regular health, dental, and eye exams. ?? Stay current with your immunizations. ? Do not use any tobacco products including cigarettes, chewing tobacco, or electronic cigarettes. ?? If you are , do not drink alcohol. ?? If you are , limit how much and how often you drink alcohol. ?? Limit alcohol intake to no more than 1 drink per day for non women. One drink equals 12 ounces of beer, 5 ounces of wine, or 1?? ounces of hard liquor. ?? Do not use street drugs. ?? Do not share needles. ?? Ask your health care provider for help if you need support or information about quitting drugs. ?? Tell your health care provider if you often feel depressed. ?? Tell your health care provider if you have ever been abused or do not feel safe at home. ?? This information is not intended to replace advice given to you by your health care provider. Make sure you discuss any questions you have with your health care provider. ?? Document Released: 03/09/2012 Document Revised: 09/15/2015 Document Reviewed: 07/27/2014 ElseSure[employer] Interactive Patient Education ??2016 [employer] ?? 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) Ordered: 01/06/2018 documented as of this encounter Goals Goal [...] as of this encounter Results * (ABNORMAL) C-REACTIVE PROTEIN (01/06/2018 4:31 PM EDT) [facility] CRP 16.05(H) <=5.00 mg/L 01/06/2018 10:24 PM EDT [facility] Blood VENOUS BLOOD / Unknown Venipuncture / Unknown 01/06/2018 4:31 PM EDT 01/06/2018 4:31 PM EDT us Annalise Oneill MD CHEMISTRY ORDERABLES Final Re sult Performing Organization Address [facility]/ZIP [place] [address] * (ABNORMAL) SEDIMENTATION RATE AUTOMATED (01/06/2018 4:31 PM EDT) [facility] Sed Rate 61(H) 0 - 30 mm/hr 01/06/2018 9:21 PM EDT [facility] Blood VENOUS BLOOD / Unknown Venipuncture / Unknown 01/06/2018 4:31 PM EDT 01/06/2018 4:31 PM EDT us Annalise Oneill MD HEMATOLOGY ORDERABLES Final R esult Performing Organization Address [facility] [place] [address] * (ABNORMAL) LIPID PANEL REFLEX (01/06/2018 4:31 PM EDT) [facility] Cholesterol 183 <=200 mg/dL 01/06/2018 10:31 PM EDT [facility] Comment: < 200 ?Desirable 200 - 239 ? Borderline High >= 240 ?High Triglyceride 127 <=150 mg/dL 01/06/2018 10:31 PM EDT [facility] Comment: < 150 ? Normal 150 - 199 ?Borderline High 200 - 499 ?High ??>= 500 ? Very High HDL 54 >=40 mg/dL 01/06/2018 10:31 PM EDT [facility] Comment: ??> 60 ?Optimal 40 - 60 ?Acceptable ?? < 40 ?Low LDL Calculated 104(H) <=100 mg/dL 01/06/2018 10:31 PM EDT [facility] Non-HDL-C Calculated 129 <=129 mg/dL 01/06/2018 10:31 PM EDT [facility] Comment: <130 ?Desirable 130-159 Above Desirable 160-189 Borderline High 190-219 High >= 220 ??Very High Blood Venipuncture / Unknown 01/06/2018 4:31 PM EDT 01/06/2018 4:31 PM EDT us Annalise Oneill MD CHEMISTRY ORDERABLES Final Re sult [facility] [address] [place] [address] * (ABNORMAL) COMPREHENSIVE METABOLIC PANEL (01/06/2018 4:31 PM EDT) Sodium 140 136 - 145 mmol/L 01/06/2018 10:31 PM EDT [facility] Potassium 4.2 3.5 - 5.0 mmol/L 01/06/2018 10:31 PM EDT [facility] Chloride 101 98 - 107 mmol/L 01/06/2018 10:31 PM EDT [facility] Total CO2 26 22 - 29 mmol/L 01/06/2018 10:31 PM EDT [facility] Anion Gap 13 7 - 16 mmol/L 01/06/2018 10:31 PM EDT [facility] Calcium 10.1 8.8 - 10.2 mg/dL 01/06/2018 10:31 PM EDT [facility] Glucose Lvl 107(H) 82 - 100 mg/dL 01/06/2018 10:31 PM EDT [facility] BUN 17 8 - 23 mg/dL 01/06/2018 10:31 PM EDT [facility] Creatinine 0.79 0.51 - 1.30 mg/dL 01/06/2018 10:31 PM [facility] Albumin 4.1 3.2 - 4.6 gm/dL 01/06/2018 10:31 PM [facility] Total Protein 7.6 6.4 - 8.3 gm/dL 01/06/2018 10:31 PM [facility] Bili Total 0.2 0.1 - 1.3 mg/dL 01/06/2018 10:31 PM [facility] ALT 10 <=41 IU/L 01/06/2018 10:31 PM [facility] AST 18 <=40 IU/L 01/06/2018 10:31 PM [facility] Alk Phos 79 35 - 104 IU/L 01/06/2018 10:31 PM [facility] GFR Afr Am 93 mL/min/1.7 3 m2 01/06/2018 10:31 PM [facility] GFR Non Afr Am 81 mL/min/1.7 3 m2 01/06/2018 10:31 PM [facility] Comment: GFR Afr Am and GFR Non Afr Am calculated using CKD-EPI equation. ?? GFR Category ?GFR(mL/min/1.73 m??) ? Kidney Function G1 ?>=90 ?Normal or high G2 ?60-89 ? Mildly decreased G3a ? 45-59 ? Mildly to moderately decreased G3b ? 30-44 ? Moderately to severely decreased G4 ?15-29 ? Severely decreased G5 ?<15 ? Kidney Failure Blood Venipuncture / Unknown 01/06/2018 4:31 PM EDT 01/06/2018 4:31 PM EDT us Annalise Oneill MD CHEMISTRY ORDERABLES Final Re sult [facility] [address] [place] [address] * HEMOGLOBIN A1C (01/06/2018 4:31 PM EDT) Hgb A1C 6.4 <=7.0 % 01/06/2018 9:43 PM EDT [facility] Est. Avg Glucose 137 mg/dL 01/06/2018 9:43 PM EDT [facility] Blood Venipuncture / Unknown 01/06/2018 4:31 PM EDT 01/06/2018 4:31 PM EDT Narrative [facility] - 01/06/2018 9:43 PM EDT Reference Interval for Hgb A1c Hgb A1c ?Interpretation ? < 6.0 ?Non-Diabetic Range 6.0 - 7.0 ? ADA Therapeutic Target ??> 7.0 ?Action suggested us Annalise Oneill MD CHEMISTRY ORDERABLES Final Re sult [facility] [address] [place], [place] [id number] documented in this encounter Visit Diagnoses Diagnosis Abdominal pain, LLQ (left lower quadrant)- Primary Abdominal pain, left lower quadrant Type 2 diabetes mellitus without complication, unspecified whether correction insulin use (HCC) Temporal arteritis (HCC) Giant cell arteritis Obesity, Class III, BMI 40-49.9 (morbid obesity) (HCC) Morbid obesity ETD (Eustachian tube dysfunction), right Medicare annual wellness visit, subsequent Routine general medical examination at a health care facility documented in this encounter Discontinued Medications Medication Sig Discontinue Reason Start Date End Da te predniSONE (DELTASONE) 10 mg Oral Tablet Take 6 Tabs by mouth daily. DELETE-Therapy completed 03/12/2017 01/06/2018 docusate sodium (STOOL SOFTENER) 100 mg Oral CapsuleIndications:Gastro esophageal reflux disease with esophagitis Take 1 Cap by mouth 2 times daily. DELETE-Duplicate 08/21/2017 01/06/2018 atorvastatin (LIPITOR) 20 mg Oral TabletIndications:Hyperli pidemia, unspecified hyperlipidemia type TAKE 1 TABLET BY MOUTH ONCE DAILY DELETE-Duplicate 09/11/2017 01/06/2018 atorvastatin (LIPITOR) 20 mg Oral TabletIndications:Hyperli pidemia, unspecified hyperlipidemia type Take 1 Tab by mouth daily. DELETE-Duplicate 07/01/2017 01/06/2018 omeprazole (PRILOSEC) 20 mg Oral Capsule, Delayed Release(E.C.)Indications: Gastroesophageal reflux disease with esophagitis TAKE 1 CAPSULE BY MOUTH ONCE DAILY DELETE-Duplicate 09/11/2017 01/06/2018 aspirin (ASPIRIN) 81 mg Oral Tablet, Chewable Take 1 Tab by mouth daily. DELETE-Duplicate 07/01/2017 01/06/2018 fUROsemide (LASIX) 20 mg Oral Tablet Take 1 Tab by mouth daily. Reorder 06/26/2017 01/06/2018 documented as of this encounter Orders Nursing Count Last Ordered Date First Orde red Date HCC STABLE 1 01/06/2018 HCC WEIGHT LOSS 1 01/06/2018 documented in this encounter Care Teams Manager Scientific Relationship Specialty Start Date End Date Annalise Oneill MD [address] [place] [address] PCP - General Family Medicine 11/19/16 08/19/18 Garett Holt MD Internal Medicine-Gastroenterology 12/22/12 Ruiz Stokes MD [address] [facility] [place] [address] Internal Medicine-Cardiovascular Disease 07/25/14 Yenny Schwab MD [address] [facility] Building [address] [place] [address] Internal Medicine-Rheumatology 12/11/16 documented as of this encounter
--- OUTSIDE RECORDS SUMMARY | 2024-07-22 16:12 | XMS_ITS | Encounter Summary ---
Author Organization [place] [address] Care Team Providers Care Riding Double Name Role Phone Garett Holt MD Unavailable [phone] Ruiz Stokes MD Unavailable [phone] Annalise Oneill MD Primary Care Provider [phone] Yenny Schwab MD Unavailable [phone] Reason for Visit * Reason Comments Medication Refill Encounter Details Date Type Department Care Team (Late st Contact Info) Description 08/29/[address] [address] Annalise Oneill MD [address] [place] [address] Medication Refill Social History Tobacco Use [...] Entry Date Author No 03/14/2017 10:26 AM EDElle Carter LPN documented in this encounter Ordered Prescriptions Prescription Sig Dispense Quantity Refills Last Filled Start Date End Date atorvastatin (LIPITOR) 40 mg Oral Tablet TAKE 1/2 TABLET (20MG) BY MOUTH ONCE DAILY 18 Tab 2 08/29/2017 8 omeprazole (PRILOSEC) 20 mg Oral Capsule, Delayed Release(E.C.) TAKE 1 CAPSULE BY MOUTH ONCE DAILY 63 Cap 08/29/2017 8 documented in this encounter Plan of Treatment Upcoming Encounters Date Type Department Care Team (Late st Contact Info) Description 07/29/2024 9:00 AM EST Appointment [facility] [address] [place] [address] Jomar Kim MD [address] [place] [address] documented as of this encounter [...] Take 1 Cap by mouth daily. Reorder 07/01/2017 08/29/2017 documented as of this encounter Care Teams Riding Double Relationship Specialty Start Date End Date Annalise Oneill MD [address] [place] [address] PCP - General Family Medicine 11/19/16 08/19/18 Garett Holt MD Internal Medicine-Gastroenterology 12/22/12 Ruiz Stokes MD [address] [place] [address] Internal Medicine-Cardiovascular Disease 07/25/14 Yenny Schwab MD [address] [address] Internal Medicine-Rheumatology 12/11/16 documented as of this encounter
--- OUTSIDE RECORDS SUMMARY | 2024-07-22 16:12 | XMS_ITS | Encounter Summary ---
Author Organization [place] [address] Care Team Providers Care Staff Radiographer Name Role Phone Garett Holt MD Unavailable [phone] Ruiz Stokes MD Unavailable [phone] Annalise Oneill MD Primary Care Provider [phone] Yenny Schwab MD Unavailable [phone] Reason for Visit * Reason Onset Date Comments Medication Problem 12/17/2017 Encounter Details Date Type Department Care Team (Late st Contact Info) Description 12/17/2017 Telephone [facility]ne[facility]FT [address] [place] [address] Kaur Cameron MD Medication Problem Social History Tobacco Use Types [...] Miscellaneous Notes * Telephone Encounter - Ana Llamas, Clerical Staff - 12/19/2017 7:40 AM EDT Spoke with pharmacist about the 5mg BID oxybutynin. It will cost the pt 18.56 so I told him to use that one per your message and confirmed with Merry. I had to leave so Roxi Starks called pt for me to inform them. * Telephone Encounter - Lolita Mtz, Clerical Staff - 12/18/2017 11:53 AM EDT Pt caregiver( enedina) is calling back to check on if anything is cheaper. Please call enedina back. * Telephone Encounter - Lyssa Fang APRN - 12/18/2017 8:20 AM EDT You can try to call the pharmacy or even see if the 5 mg BID dosing is cheaper, okay to prescribe. Lyssa Fang APRN * Telephone Encounter - Merry Cunningham RMA - 12/17/2017 2:51 PM EDT Roxi spoke with pharm and they are stating oxybutynin will cost patient $47.00 Will review with IGNITER ASSEMBLER tomorrow morning. I can give patient information for [facility] ( ) to see if patient qualifies for free prescriptions, it is income based. * Telephone Encounter - Ana Llamas, Clerical Staff - 12/17/2017 1:53 PM EDT Pt just called to say that they cannot afford the RX sent to [facility] [place] yesterday * Telephone Encounter - Ana Llamas, Clerical Staff - 12/17/2017 12:40 PM EDT Pts friend, Enedina, is concerned that the pt is not having surgery. She would like to speak to someone. documented in this encounter Plan of Treatment Upcoming Encounters Date Type Department Care Team (Late st Contact Info) Description 07/29/2024 9:00 AM EST Appointment [facility] [address] [place] [address] Jomar Kim MD [address] [place] [address] documented as of this encounter [...] on filedocumented in this encounter Care Teams Staff Radiographer Relationship Specialty Start Date End Date Annalise Oneill MD [address] [place] [address] PCP - General Family Medicine 11/19/16 08/19/18 Garett Holt MD Internal Medicine-Gastroenterology 12/22/12 Ruiz Stokes MD [address] [place] [address] Internal Medicine-Cardiovascular Disease 07/25/14 Yenny Schwab MD [address] [address] Internal Medicine-Rheumatology 12/11/16 documented as of this encounter
--- OUTSIDE RECORDS SUMMARY | 2024-07-22 16:12 | XMS_ITS | Encounter Summary ---
Author Organization [place] [address] Care Team Providers Care Game Author Name Role Phone Garett Holt MD Unavailable [phone] Ruiz Stokes MD Unavailable [phone] Annalise Oneill MD Primary Care Provider [phone] Yenny Schwab MD Unavailable [phone] Reason for Visit * Reason Comments Medication Refill Encounter Details Date Type Department Care Team (Late st Contact Info) Description 09/11/[address] [address] Annalise Oneill MD [address] [place] [address] Medication Refill Social History Tobacco Use [...] omeprazole (PRILOSEC) 20 mg Oral Capsule, Delayed Release(E.C.)Indicat ions:Gastroesophagea l reflux disease with esophagitis TAKE 1 CAPSULE BY MOUTH ONCE DAILY 90 Cap 1 09/11/2017 8 atorvastatin (LIPITOR) 20 mg Oral TabletIndications:Hy perlipidemia, unspecified hyperlipidemia type TAKE 1 TABLET BY MOUTH ONCE DAILY 90 Tab 1 09/11/2017 8 documented in this encounter Plan of Treatment Upcoming Encounters Date Type Department Care Team (Late st Contact Info) Description 07/29/2024 9:00 AM EST Appointment [facility] [address] [place] [place] [address] Jomar Kim MD [address] [place] [address] documented as of this encounter [...] Visit Diagnoses Diagnosis Hyperlipidemia, unspecified hyperlipidemia type Gastroesophageal reflux disease with esophagitis documented in this encounter Care Teams Game Author Relationship Specialty Start Date End Date Annalise Oneill MD [address] [place] [address] PCP - General Family Medicine 11/19/16 08/19/18 Garett oHlt MD Internal Medicine-Gastroenterology 12/22/12 Ruiz Stokes MD [address] [place] [address] Internal Medicine-Cardiovascular Disease 07/25/14 Yenny Schwab MD [address] [facility] [address] [place] [address] Internal Medicine-Rheumatology 12/11/16 documented as of this encounter
--- OUTSIDE RECORDS SUMMARY | 2024-07-22 16:12 | XMS_ITS | Encounter Summary ---
Author Organization [place] [address] Care Team Providers Care Carpenter Assistant Installer Name Role Phone Garett Holt MD Unavailable [phone] Ruiz Stokes MD Unavailable [phone] Annalise Oneill MD Primary Care Provider [phone] Yenny Schwab MD Unavailable [phone] Reason for Visit * Reason Onset Date Comments Other 09/19/2017 Encounter Details Date Type Department Care Team (Late st Contact Info) Description 09/19/2017 Telephone [facility] U[facility]gynecology NPFT [address] [place] [address] Kaur Cameron MD Other Social [...] encounter Miscellaneous Notes * Telephone Encounter - Aravind Parham RN - 09/19/2017 11:54 AM EST VM received from Kinsman, returned call to Kinsman regarding patient, Anita with questions related to pessary, reviewed with Kinsman all questions she had related to pessary and Anita with no questions or concerns at this time patient scheduled to be seen on 09/24/17 with , patient/Anita will notify office with any further questions or concerns. documented in this encounter Plan of Treatment Upcoming Encounters Date Type Department Care Team (Late st Contact Info) Description 07/29/2024 9:00 AM EST Appointment [facility] [address] [place] [id number] Jomar Kim MD [address] [place] [address] documented as of this encounter [...] on filedocumented in this encounter Care Teams Carpenter Assistant Installer Relationship Specialty Start Date End Date Annalise Oneill MD [address] [place] [address] PCP - General Family Medicine 11/19/16 08/19/18 Garett Holt MD Internal Medicine-Gastroenterology 12/22/12 Ruiz Stokes MD [address] [place] [id number] Internal Medicine-Cardiovascular Disease 07/25/14 Yenny Schwab MD [address] [facility] [address] [place] [address] Internal Medicine-Rheumatology 12/11/16 documented as of this encounter
--- OUTSIDE RECORDS SUMMARY | 2024-07-22 16:12 | XMS_ITS | Encounter Summary ---
Author Organization [place] [address] Care Team Providers Care Tank Tender Name Role Phone Garett Holt MD Unavailable [phone] Ruiz Stokes MD Unavailable [phone] Annalise Oneill MD Primary Care Provider Yenny Schwab MD Unavailable [phone] Reason for Referral * Consultation (Routine) - Closed Specialty Diagnoses / Procedures Referred By Contalissa t Referred To Contact Gynecology Diagnoses Rectocele Annalise Oneill MD [address] [place] [address] Phone: tel: fax: Kaur Cameron MD Referral ID Status Reason Start Date Expiration Date Visits Re quested Visits Authorized [id number] Closed 08/19/2017 08/19/2018 1 99 Reason for Visit * Reason Comments Vaginal Pain c/o lump/cyst to her vaginal opening, she c/o dysuria and bubbles in her urine, she denies vaginal discharge Encounter Details Date Type Department Care Team (Late st Contact Info) Description 08/19/2017 2:00 PM EST Office Visit [facility] [address] [place] [address] Annalise Oneill MD [address] [place] [address] Rectocele (Primary Dx); Acute vaginitis Social History Tobacco Use Types Packs/Day Years [...] Sign Reading Time Taken Comments Blood Pressure 110/70 08/19/2017 1:47 PM EST Pulse 100 08/19/2017 1:47 PM EST Temperature 36.6 ??C (97.8 ??F) 08/19/2017 1:47 PM ES T Respiratory Rate 16 08/19/2017 1:47 PM EST Oxygen Saturation - - Inhaled Oxygen Concentration - - Weight 113.4 kg (250 lb) 08/19/2017 1:47 PM EST Height 152.4 cm (5') 08/19/2017 1:47 PM EST Body Mass Index 48.82 08/19/2017 1:47 PM [...] Progress Notes * Annalise Oneill MD - 08/19/2017 2:00 PM EST Subjective Chief Complaint Patient presents with ??? Vaginal Pain c/o lump/cyst to her vaginal opening, she c/o dysuria and bubbles in her urine, she denies vaginal discharge vaginal lump starting 5-6 months ago that has enlarged in size in the past few month Occasionally drains white liquid Mostly mc and itches No fever Review of Systems Constitutional: Negative for chills and fever. Cardiovascular: Negative. Gastrointestinal: Negative. Objective BP 110/70 Pulse 100 Temp 97.8 ??F (36.6 ??C) Resp 16 Ht 5' (1.524 m) Wt 250 lb (113.4 kg) BMI 48.82 kg/m?? Physical Exam Constitutional: She is oriented [...] exhibits no mass. There is no tenderness. Genitourinary: Genitourinary Comments: Large rectocele. No appreciable cystocele Neurological: She is alert and oriented to person, place, and time. She has normal reflexes. Skin: Skin is warm and dry. Psychiatric: She has a normal mood and affect. Judgment normal. Vitals reviewed. Diagnoses and all orders for this visit: Rectocele - AMB REFERRAL TO UROGYNECOLOGY Acute vaginitis - POCT URINALYSIS AUTOMATED - URINE CULTURE (NO STAIN); Future normal UA Discussed only treatment for rectocele would be surgical intervention. [facility] Documentation [facility]ATED [facility] Flowsheet was completed/reviewed as part of today's visit. Educated patient regarding the diagnosis, medication/treatment, goals, self- management tools and instructions based on their care plan. They verbalized understanding of the education given on the After Visit Summary [AVS] for today's visit. A copy of the AVS was provided either in writing and/or via [employer]. A new medicine was not prescribed on this visit. documented in this encounter Miscellaneous Notes * Patient Instructions - Annalise Oneill MD - 08/19/2017 2:00 PM EST You have a rectocele which is a protrusion of the rectum into the vaginal wall. You have been referred to a surgeon to discuss repair options. documented in this encounter Plan of Treatment Upcoming Encounters Date Type Department Care Team (Late st Contact Info) Description 07/29/2024 9:00 AM EST Appointment [facility] [address] [place] [address] Jomar Kim MD [address] [place] [address] Scheduled Referrals Name Type Priority Associated Diagnoses Order Schedule AMB REFERRAL TO UROGYNECOLOGY Outpatient Referral Routine Rectocele Ordered: 08/19/2017 documented as of this encounter Goals Goal Patient Goal Type Associated Problems Recent Progress Patient-Stated? Author Blood Pressure < 140/90 Blood Pressure 110/72(2023 2:44 PM EDT) No Rachel Rogers, MULU BMI (Calculated) < 30 General 50.9(04/27/20 2:44 PM EDT) No Rachel Rogers RMA Eat better, exercise, reach an ideal body weight General No Ni Clinton MATT Stay Tobacco Free Lifestyle On track( 021 10:23 AM EDT) No Wendy Espinoza LPN HEMOGLOBIN A1C < 7.0 Result Component 5.6( 4 3:04 PM EST) No Rachel Rogers RMA documented as of this encounter Procedures Procedure Name Priority Date/Time Associated Diagnosis Comments URINE CULTURE (NO STAIN) Routine 08/19/2017 1:52 PM EST Acute vaginitis POCT URINALYSIS AUTOMATED Routine 08/19/2017 1:42 PM EST Acute vaginitis documented in this encounter Results * URINE CULTURE (NO STAIN) (08/19/2017 1:52 PM EST) Culture Three or more bacterial species isolated from urine indicating superficial or fecal contamination. Recollect if clinically indicated. 08/21/2017 10:14 AM EST [facility] Urine URINE SPECIMEN COLLECTION, CLEAN CATCH / Unknown 08/19/2017 1:52 PM EST 08/19/2017 5:49 PM EST us Annalise Oneill MD MICROBIOLOGY - GENERAL ORDERA BLES Final Result [facility] [address] [place] [address] * POCT URINALYSIS AUTOMATED (08/19/2017 1:42 PM EST) Color, UA yellow CLEAR,YELL OW,ORANGE, RUST SEP OFFICE Clarity, UA clear CLEAR,CLOU DY SEP OFFICE Glucose, UA - G/DL% SEP OFFICE Bilirubin, UA - POS/NEG SEP OFFICE Ketones, UA - POS/NEG SEP mba intern Grav, UA 1.020 1.001 - 1.035 G/DL SEP OFFICE Blood, UA - POS/NEG SEP OFFICE pH, UA 6.5 5.0 - 8 SEP OFFICE Protein, UA - POS/NEG SEP OFFICE Urobilinogen, UA - 0.2 - 1.0 MG/DL SEP OFFICE Leukocytes, UA - POS/NEG SEP OFFICE Nitrite, UA - POS/NEG SEP OFFICE Appear BF Clear SEP OFFICE Lot Number [id number] SEP OFFICE Expiration Date 04/2019 SEP OFFICE SeriAl # SEP OFFICE Urine 08/19/2017 1:42 PM EST us Annalise Oneill MD POINT OF CARE TEST ORDERABLES Final Result SEP OFFICE documented in this encounter Visit Diagnoses Diagnosis Rectocele- Primary Acute vaginitis Vaginitis and vulvovaginitis, unspecified documented in this encounter Care Teams Tank Tender Relationship Specialty Start Date End Date Annalise Oneill MD [address] [place] [address] PCP - General Family Medicine 11/19/16 08/19/18 Garett Holt MD Internal Medicine-Gastroenterology 12/22/12 Ruiz Stokes MD [address] [place] [address] Internal Medicine-Cardiovascular Disease 07/25/14 Yenny Schwab MD [address] [facility] [address] [place] [address] Internal Medicine-Rheumatology 12/11/16 documented as of this encounter
--- OUTSIDE RECORDS SUMMARY | 2024-07-22 16:12 | XMS_ITS | Encounter Summary ---
Author Organization [place] [address] Care Team Providers Care Medical Device Assembler Name Role Phone Garett Holt MD Unavailable [phone] Ruiz Stokes MD Unavailable [phone] Annalise Oneill MD Primary Care Provider [phone] Yenny Schwab MD Unavailable [phone] Reason for Visit * Reason Onset Date Comments Appointment Needed 10/02/2017 Encounter Details Date Type Department Care Team (Late st Contact Info) Description 10/02/2017 Telephone [facility]FT [address] [place] [address] Kaur Cameron MD Appointment Needed Social History Tobacco Use Types [...] Telephone Encounter - Joselyn Mcduffie LPN - 10/02/2017 1:53 PM EST Spoke with patient, per chart, has appointment scheduled on 10/14 and will keep. JOSE MANUEL [place] * Telephone Encounter - Lolita Mtz, Clerical Staff - 10/02/2017 8:21 AM EST Pt missed apt on 10/01/17 and now her pessary has came out and she is in pain. Pt's daughter was wanting pt to come in today or what pt should do about the pain. Please call and advise. documented in this encounter Plan of Treatment Upcoming Encounters Date Type Department Care Team (Late st Contact Info) Description 07/29/2024 9:00 AM EST Appointment [facility] [address] [place] [address] Jomar Kim MD [address] [place] [address] documented as of this encounter Goals Goal Patient Goal Type Associated Problems Recent Progress Patient-Stated? Author Blood Pressure < 140/90 Blood Pressure 110/72(2023 2:44 PM EDT) No Rachel Rogers, RMA BMI (Calculated) < 30 General 50.9(04/27/20 2:44 PM EDT) No Rachel Rogers, RMA [...] on filedocumented in this encounter Care Teams Medical Device Assembler Relationship Specialty Start Date End Date Annalise Oneill MD [address] [place] [address] PCP - General Family Medicine 11/19/16 08/19/18 Garett Holt MD Internal Medicine-Gastroenterology 12/22/12 Ruiz Stokes MD [address] [place] [address] [place] [address] Internal Medicine-Cardiovascular Disease 07/25/14 Yenny Schwab MD [address] [place] [id number] Internal Medicine-Rheumatology 12/11/16 documented as of this encounter
--- OUTSIDE RECORDS SUMMARY | 2024-07-22 16:12 | XMS_ITS | Encounter Summary ---
Author Organization [place] [address] Care Team Providers Care Naval Gunfire Liaison Officer Name Role Phone Garett Holt MD Unavailable [phone] Ruiz Stokes MD Unavailable [phone] Annalise Oneill MD Primary Care Provider Yenny Schwab MD Unavailable [phone] Reason for Visit * Reason Comments Medication Refill Encounter Details Date Type Department Care Team (Late st Contact Info) Description 11/10/[address] [address] Annalise Oneill MD [address] [place] [address] Medication Refill Social History Tobacco Use [...] BY MOUTH ONCE DAILY 18 Tab 2 11/10/2017 8 omeprazole (PRILOSEC) 20 mg Oral Capsule, Delayed Release(E.C.) TAKE 1 CAPSULE BY MOUTH ONCE DAILY 63 Cap 11/10/2017 8 documented in this encounter Plan of Treatment Upcoming Encounters Date Type Department Care Team (Late st Contact Info) Description 07/29/2024 9:00 AM EST Appointment [facility] [address] [place] [address] Jomar Kim MD [address] [place] [address] documented as of this [...] 1 CAPSULE BY MOUTH ONCE DAILY Reorder 08/29/2017 11/10/2017 atorvastatin (LIPITOR) 40 mg Oral Tablet TAKE 1/2 TABLET (20MG) BY MOUTH ONCE DAILY Reorder 08/29/2017 11/10/2017 documented as of this encounter Care Teams Naval Gunfire Liaison Officer Relationship Specialty Start Date End Date Annalise Oneill MD [address] [place] [address] PCP - General Family Medicine 11/19/16 08/19/18 Garett Holt MD Internal Medicine-Gastroenterology 12/22/12 Ruiz Stokes MD [address] [place] [address] [place] [id number] Internal Medicine-Cardiovascular Disease 07/25/14 Yenny Schwab MD 651 [facility] Building [address] [place] [address] Internal Medicine-Rheumatology 12/11/16 documented as of this encounter
--- OUTSIDE RECORDS SUMMARY | 2024-07-22 16:12 | XMS_ITS | Encounter Summary ---
Author Organization [place] [address] Care Team Providers Care Vegetable Scullion Name Role Phone Garett Holt MD Unavailable [phone] Ruiz Stokes MD Unavailable [phone] Annalise Oneill MD Primary Care Provider [phone] Yenny Schwab MD Unavailable [phone] Reason for Visit * Reason Onset Date Comments Other 11/07/2017 Encounter Details Date Type Department Care Team (Late st Contact Info) Description 11/07/2017 Telephone [facility] Urogyne[facility] NPFT [address] [place] [address] Kaur Cameron MD Other Social [...] Encounter - Ana Llamas, Clerical Staff - 11/11/2017 7:20 AM EST Done * Telephone Encounter - Ana Llamas, Clerical Staff - 11/07/2017 8:40 AM EST Pessary has fallen out again. Should I bring her in to try it again with delonte?? documented in this encounter Plan of Treatment Upcoming Encounters Date Type Department Care Team (Late st Contact Info) Description 07/29/2024 9:00 AM EST Appointment [facility] [address] [place] [address] Jomar Kim MD [address] [place] [address] documented as of this encounter [...] on filedocumented in this encounter Care Teams Vegetable Scullion Relationship Specialty Start Date End Date Annalise Oneill MD [address] [place] [address] PCP - General Family Medicine 11/19/16 08/19/18 Garett Holt MD Internal Medicine-Gastroenterology 12/22/12 Ruiz Stokes MD [address] [place] [address] Internal Medicine-Cardiovascular Disease 07/25/14 Yenny Schwab MD 651 [facility] [address] [place] [address] Internal Medicine-Rheumatology 12/11/16 documented as of this encounter
--- OUTSIDE RECORDS SUMMARY | 2024-07-22 16:12 | XMS_ITS | Encounter Summary ---
Author Organization [place] [address] Care Team Providers Care Biology Lecturer Name Role Phone Garett Holt MD Unavailable [phone] Ruiz Stokes MD Unavailable [phone] Annalise Oneill MD Primary Care Provider [phone] Yenny Schwab MD Unavailable [phone] Reason for Visit * Reason Onset Date Comments Advice Only 11/26/2017 Encounter Details Date Type Department Care Team (Late st Contact Info) Description 11/26/[address] [address] Laura Alvarado Leigh Advice Only Social History Tobacco Use Types Packs/Day Years [...] Telephone Encounter - Bridget Gao RMA - 12/08/2017 10:43 AM EDT Pt never returned call, she did proceed with her appt with student ministry pastor the following day (11/27) * Telephone Encounter - Bridget Gao RMA - 11/26/2017 4:33 PM EDT [facility] * Telephone Encounter - Annalise Oneill MD - 11/26/2017 4:24 PM EDT I would recommend that she discuss this with the treating provider as they can give her a better ideal of her surgical risk * Telephone Encounter - Laura Alvarado RMA - 11/26/2017 2:32 PM EDT Pt is having trouble keeping rings in to help her prolapse of vaginal wall. Tomorrow has another apt to put a 3rd one in. Wants to know if it would be better for a hysterectomy. documented in this encounter Plan of Treatment Upcoming Encounters Date Type Department Care Team (Late st Contact Info) Description 07/29/2024 9:00 AM EST Appointment [facility] [address] [place] [address] Jomar Kim MD [address] [place] [address] documented as of this encounter [...] on filedocumented in this encounter Care Teams Biology Lecturer Relationship Specialty Start Date End Date Annalise Oneill MD [address] [place] [address] PCP - General Family Medicine 3/14/17 12/12/18 Garett Holt MD Internal Medicine-Gastroenterology 12/22/12 Ruiz Stokes MD [address] [place] [address] Internal Medicine-Cardiovascular Disease 07/25/14 Yenny Schwab MD [address] [place] [phone] Internal Medicine-Rheumatology 12/11/16 documented as of this encounter
--- OUTSIDE RECORDS SUMMARY | 2024-07-22 16:12 | XMS_ITS | Encounter Summary ---
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 Author Blood Pressure < 140/90 Blood Pressure 110/72(2023 2:44 PM EDT) No Rachel Rogers RMA BMI (Calculated) < 30 General 50.9(08/20/20 24 2:44 PM EDT) No Rachel Rogers [...] Date/Time Associated Diagnosis Comments POCT MICROALBUMIN Routine 08/19/2017 1:4 0 PM EST Type 2 diabetes mellitus without complication, unspecified custodial insulin use status (HCC) documented in this encounter Results * POCT MICROALBUMIN (08/19/2017 1:40 PM EST) Microalb, Ur 0 <=20 MG/L SEP OFFICE Lot Number [id number] SEP OFFICE Expiration Date 04/07/18 SEP OFFICE SeriAl # SEP OFFICE Urine 08/19/2017 1:40 PM EST us Annalise Oneill MD POINT OF CARE TEST ORDERABLES Final Result SEP OFFICE documented in this encounter Visit Diagnoses Diagnosis Type 2 diabetes mellitus without complication, unspecified custodial insulin use status- Primary documented in this encounter Care Teams Processing Inspector Relationship Specialty Start Date End Date Annalise Oneill MD [address] [place] [address] PCP - General Family Medicine 11/19/16 08/19/18 Garett Holt MD Internal Medicine-Gastroenterology 12/22/12 Ruiz Stokes MD [address] [place] [address] Internal Medicine-Cardiovascular Disease 07/25/14 Yenny Schwab MD [address] [place] [address] Internal Medicine-Rheumatology 12/11/16 documented as of this encounter
--- OUTSIDE RECORDS SUMMARY | 2024-07-22 16:12 | XMS_ITS | Encounter Summary ---
Author Organization [place] [address] Care Team Providers Care Endo Tech Name Role Phone Garett Holt MD Unavailable [phone] Ruiz Stokes MD Unavailable [phone] Annalise Oneill MD Primary Care Provider [phone] Yenny Schwab MD Unavailable [phone] Encounter Details Date Type Department Care Team (Latest Contact Info) Description 01/06/2018 4:23 PM EDT - 01/06/2018 11:59 PM EDT Hospital En[facility] [place] [address] [address] Type 2 diabetes mellitus without complication, unspecified whether [facility] insulin use (HCC); Temporal arteritis (HCC) Discharge Disposition: Home [...] Author Yes 01/06/2018 3:48 PM EDT Ni Cilnton RN documented as of this encounter Mental Status * Because of a physical, mental or emotional condition, does this person have serious difficulty concentrating, remembering or making decisions? Answer Entry Date Author Yes 01/06/2018 3:48 PM EDT Ni Clinton RN documented in this encounter Medications at Time of Discharge CALCIUM ORAL Take 1 Tab by mouth daily. polyethylene glycol (GLYCOLAX) 17 gram/dose Oral PowderIndications :Abdominal pain, LLQ (left lower quadrant) Take 17 g by mouth daily for 30 days. 510 g 2 01/06/2018 02/05/2018 documented as of this encounter Discharge Disposition Disposition Code Departure Means Destination Home or Self Care documented in this encounter Plan of Treatment Upcoming Encounters Date Type Department Care Team (Late st Contact Info) Description 07/29/2024 9:00 AM EST Appointment [facility] [address] [place] [address] Jomar Kim MD [address] [place] [address] documented as of this encounter [...] Associated Diagnosis Comments LIPID PANEL REFLEX Routine 01/06/2018 4: 31 PM EDT Type 2 diabetes mellitus without complication, unspecified whether [facility] insulin use (HCC) SEDIMENTATION RATE AUTOMATED Routine 01/06/2018 4:31 PM EDT Temporal arteritis (HCC) C-REACTIVE PROTEIN Routine 01/06/2018 4: 31 PM EDT Temporal arteritis (HCC) HEMOGLOBIN A1C Routine 01/06/2018 4:31 PM EDT Type 2 diabetes mellitus without complication, unspecified whether [facility] insulin use (HCC) COMPREHENSIVE METABOLIC PANEL Routine 01/06/2018 4:31 PM EDT Type 2 diabetes mellitus without complication, unspecified whether termite control servicer insulin use (HCC) documented in this encounter Results * (ABNORMAL) C-REACTIVE PROTEIN (01/06/2018 4:31 PM EDT) CRP 16.05(H) <=5.00 mg/L 01/06/2018 10:24 PM EDT [facility] Blood VENOUS BLOOD / Unknown Venipuncture / Unknown 01/06/2018 4:31 PM EDT 01/06/2018 4:31 PM EDT Annalise Oneill MD CHEMISTRY ORDERABLES Final Re sult Performing Organization Address [facility]/ZIP Co de Phone Number [facility] [address] [place] [address] * (ABNORMAL) SEDIMENTATION RATE AUTOMATED (01/06/2018 4:31 PM EDT) Sed Rate 61(H) 0 - 30 mm/hr 01/06/2018 9:21 PM EDT [facility] Blood VENOUS BLOOD / Unknown Venipuncture / Unknown 01/06/2018 4:31 PM EDT 01/06/2018 4:31 PM EDT us Annalise Oneill MD HEMATOLOGY ORDERABLES Final R esult Performing Organization Address [facility]/ZIP Co de Phone Number [facility] [address] [place] [address] * (ABNORMAL) LIPID PANEL REFLEX (01/06/2018 4:31 PM EDT) Pathologist [facility] Cholesterol 183 <=200 mg/dL 01/06/2018 10:31 PM EDT [facility] Comment: < 200 ?Desirable 200 - 239 ? Borderline High >= 240 ?High Triglyceride 127 <=150 mg/dL 01/06/2018 10:31 PM EDT [facility] Comment: < 150 ? Normal 150 - 199 ?Borderline High 200 - 499 ?High ??>= 500 ? Very High HDL 54 >=40 mg/dL 01/06/2018 10:31 PM EDT [facility] Comment: ??> 60 ?Optimal 40 - 60 ?Acceptable ?? < 40 ?Low LDL Calculated 104(H) <=100 mg/dL 01/06/2018 10:31 PM EDT [facility] Non-HDL-C Calculated 129 <=129 mg/dL 01/06/2018 10:31 PM EDT [facility] Comment: <130 ?Desirable 130-159 Above Desirable 160-189 Borderline High 190-219 High >= 220 ??Very High Blood Venipuncture / Unknown 01/06/2018 4:31 PM EDT 01/06/2018 4:31 PM EDT us Annalise Oneill MD CHEMISTRY ORDERABLES Final Re sult [facility] [address] [place] [address] * (ABNORMAL) COMPREHENSIVE METABOLIC PANEL (01/06/2018 4:31 PM EDT) Sodium 140 136 - 145 mmol/L 01/06/2018 10:31 PM EDT [facility] Potassium 4.2 3.5 - 5.0 mmol/L 01/06/2018 10:31 PM EDT [facility] Chloride 101 98 - 107 mmol/L 01/06/2018 10:31 PM EDT [facility] Total CO2 26 22 - 29 mmol/L 01/06/2018 10:31 PM EDT [facility] Anion Gap 13 7 - 16 mmol/L 01/06/2018 10:31 PM EDT [facility] Calcium 10.1 8.8 - 10.2 mg/dL 01/06/2018 10:31 PM EDT [facility] Glucose Lvl 107(H) 82 - 100 mg/dL 01/06/2018 10:31 PM EDT [facility] BUN 17 8 - 23 mg/dL 01/06/2018 10:31 PM EDT [facility] Creatinine 0.79 0.51 - 1.30 mg/dL 01/06/2018 10:31 PM EDT [facility] Albumin 4.1 3.2 - 4.6 gm/dL 01/06/2018 10:31 PM EDT [facility] Total Protein 7.6 6.4 - 8.3 gm/dL 01/06/2018 10:31 PM EDT [facility] Bili Total 0.2 0.1 - 1.3 mg/dL 01/06/2018 10:31 PM EDT [facility] ALT 10 <=41 IU/L 01/06/2018 10:31 PM [facility] AST 18 <=40 IU/L [facility] Alk Phos 79 35 - 104 IU/L 01/06/2018 10:31 PM [facility] GFR Afr Am 93 mL/min/1.7 3 m2 01/06/2018 10:31 PM [facility] GFR Non Afr Am 81 mL/min/1.7 3 m2 01/06/2018 10:31 PM [facility] Comment: GFR Afr Am and GFR Non [...] Re sult Performing Organization Address [facility] de Phone Number [facility] [address] [place] [address] * HEMOGLOBIN A1C (01/06/2018 4:31 PM EDT) Hgb A1C 6.4 <=7.0 % 01/06/2018 9:43 PM EDT [facility] Est. Avg Glucose 137 mg/dL 01/06/2018 9:43 PM EDT [facility] Blood Venipuncture / Unknown 01/06/2018 4:31 PM EDT 01/06/2018 4:31 PM EDT Narrative [facility] - 01/06/2018 9:43 PM EDT Reference Interval for Hgb A1c Hgb A1c ?Interpretation ? < 6.0 ?Non-Diabetic Range 6.0 - 7.0 ? ADA Therapeutic Target ??> 7.0 ?Action suggested us Annalise Oneill MD CHEMISTRY ORDERABLES Final Re sult Performing Organization Address [facility] de Phone Number [facility] [address] [place] [address] documented in this encounter Visit Diagnoses Diagnosis Type 2 diabetes mellitus without complication, unspecified whether [facility] insulin use (HCC) Temporal arteritis (HCC) Giant cell arteritis documented in this encounter Care Teams Endo Tech Relationship Specialty Start Date End Date Annalise Oneill MD [address] [facility] [place] [address] PCP - General Family Medicine 11/19/16 08/19/18 Garett Holt MD Internal Medicine-Gastroenterology 12/22/12 Ruiz Stokes MD [address] [place] [id number] Internal Medicine-Cardiovascular Disease 07/25/14 Yenny Schwab MD [address] [address] Internal Medicine-Rheumatology 12/11/16 documented as of this encounter
--- OUTSIDE RECORDS SUMMARY | 2024-07-22 16:13 | XMS_ITS | Encounter Summary ---
Author Organization [place] [address] Care Team Providers Care Business Management Associate Name Role Phone Garett Holt MD Unavailable [phone] Ruiz Stokes MD Unavailable [phone] Annalise Oneill MD Primary Care Provider Yenny Schwab MD Unavailable [phone] Reason for Visit * Reason Onset Date Comments Medication Management 05/15/2017 Encounter Details Date Type Department Care Team (Late st Contact Info) Description 05/15/2017 Telephone [facility] Rheumatology [facility] [address] [address] Yenny Schwab MD [address] [phone] Medication Management Social History Tobacco Use Types [...] encounter Miscellaneous Notes * Telephone Encounter - Lis Lr MA - 06/30/2017 1:31 PM EDT Left message * Telephone Encounter - Lis Lr MA - 06/30/2017 9:13 AM EDT Left message on Anita's cell phone Left message on Janey Jamil's cell phone * Telephone Encounter - Yenny Schwab MD - 06/27/2017 4:54 PM EDT Please try to reschedule the patient again. We should have numbers for her daughter. She needs to be seen. She failed again to follow up on 06/13. * Telephone Encounter - Lis Lr MA - 05/15/2017 4:22 PM EDT called no answer no voice mail * Telephone Encounter - Yenny Schwab MD - 05/15/2017 4:11 PM EDT Please advise the patient to go back on 60 mg of prednisone till she is seen in the office for the follow up on 06/13. We will recheck markers then and start tapering. We will also discuss additional options to limit the use of prednisone. I believe she should have script at home or at the pharmacy but if she does not we can send one. documented in this encounter Plan of Treatment Upcoming Encounters Date Type Department Care Team (Late st Contact Info) Description 07/29/2024 9:00 AM EST Appointment [facility] [address] [place] [place] [address] Jomar Kim MD [address] [place] [address] documented as of this encounter Goals [...] on filedocumented in this encounter Care Teams Business Management Associate Relationship Specialty Start Date End Date Annalise Oneill MD [address] [place] [phone] PCP - General Family Medicine 11/19/16 08/19/18 Garett Holt MD Internal Medicine-Gastroenterology 12/22/12 Ruiz Stokes MD [address] [place] [address] Internal Medicine-Cardiovascular Disease 07/25/14 Yenny Schwab MD [address] [address] Internal Medicine-Rheumatology 12/11/16 documented as of this encounter
--- OUTSIDE RECORDS SUMMARY | 2024-07-22 16:13 | XMS_ITS | Encounter Summary ---
Author Organization [place] [address] Care Team Providers Care Completion Engineer Name Role Phone Garett Holt MD Unavailable [phone] Ruiz Stokes MD Unavailable [phone] Annalise Oneill MD Primary Care Provider Yenny Schwab MD Unavailable [phone] Reason for Visit * Reason Comments Diarrhea c/o very weak, dizzy , nausea from PND she states, she has had diarrhea for few days using pedialyte for hydration Pain c/o RT hip pain and back pain increased, she rates her pain today as 10, her pain in her back is up b/t shoulder and lower back / sciatic region, Encounter Details Date Type Department Care Team (Late st Contact Info) Description 05/08/2017 11:20 AM EDT Office Visit [facility] [address] [place] [address] Annalise Oneill MD [address] [place] [phone] Diarrhea, unspecified type (Primary Dx); PMR (polymyalgia rheumatica) (HCC); Urinary frequency Social History Tobacco Use Types Packs/Day Years [...] Sign Reading Time Taken Comments Blood Pressure 126/74 05/08/2017 11:57 AM EDT Pulse 64 05/08/2017 11:57 AM EDT Temperature 36.7 ??C (98 ??F) 05/08/2017 11:57 AM EDT Respiratory Rate 16 05/08/2017 11:57 AM EDT Oxygen Saturation - - Inhaled Oxygen Concentration - - Weight 119.3 kg (263 lb) 05/08/2017 11:57 AM EDT Height 157.5 cm (5' 2 ) 05/08/2017 11:57 AM EDT Body Mass Index 48.1 05/08/2017 11:57 AM EDT documented in this encounter Functional [...] Progress Notes * Annalise Oneill MD - 05/08/2017 11:20 AM EDT Subjective Chief Complaint Patient presents with ??? Diarrhea c/o very weak, dizzy, nausea from PND she states, she has had diarrhea for few days using pedialytefor hydration ??? Pain c/o RT hip pain and back pain increased, she rates her pain today as 10, her pain in her back is upb/t shoulder and lower back / sciatic region, Started with diarrhea a few days ago. She got some pedialyte and that seemed to help Diarrhea has resolved. She complains of things not tasting well She denies any nausea She has hot and cold chills. She has not been back to the athletic instructor since 02/28/17. She has stopped her steroid because she states it was making her eyes swell. She has had some return of mild headaches. She has pain in the bips and shoulders. Review of Systems Constitutional: Negative for fever. HENT: Positive for nosebleeds and postnasal drip. Respiratory: Negative. Cardiovascular: Negative. Gastrointestinal: Positive for diarrhea, nausea and vomiting. Musculoskeletal: Positive for arthralgias, back pain and gait problem. LBP, pain b/t shoulders, rt hip and sciatic pain Neurological: Positive for dizziness and headaches. Objective BP 126/74 Pulse 64 Temp 98 ??F (36.7 ??C) Resp 16 Ht 5' 2 (1.575 m) Wt 263 lb (119.3 kg) BMI 48.10 kg/m?? Physical Exam Constitutional: She is oriented to person, place, and time. She appears well- developed and well-nourished. HENT: No temporal artery Tenderness. Right nares with dry blood Eyes: Conjunctivae are normal. Pupils are equal, round, and reactive to light. Neck: Normal range of motion. Neck supple. No thyromegaly present. Cardiovascular: Normal rate, regular rhythm, normal heart sounds and intact distal pulses. No carotid bruits. Pulmonary/Chest: Effort normal and breath sounds normal. Abdominal: Soft. Bowel sounds are normal. She exhibits no mass. There is no tenderness. Musculoskeletal: Lumbar back: She exhibits tenderness. She exhibits normal range of motion and no bony tenderness. Diffuse tenderness to palpation of the upper and lower extremities Neurological: She is alert and oriented to person, place, and time. She has normal reflexes. Skin: Skin is warm and dry. Psychiatric: She has a normal mood and affect. Judgment normal. Vitals reviewed. Diagnoses and all orders for this visit: 1. Diarrhea, unspecified type Comments: stop pedialyte and resume normal diet 2. PMR (polymyalgia rheumatica) ([facility]) (Chronic) Comments: self discontinued steroids due to facial edema. check labs and consult w athletic instructor Orders: - CREATINE KINASE; Future - SEDIMENTATION RATE AUTOMATED; Future PCM Documentation Medication Compliance - compliant most of the time Understanding of current medications - fair Self-Management Tools - none Self-Management Ability - poor Willingness to adopt healthy behaviors - poor Patient Barriers: no significant Existing barriers discussed and addressed in orders and /or referrals. Educated patient regarding the diagnosis, medication/treatment, goals, self- management tools and instructions based on their care plan. They verbalized understanding of the education given on the After Visit Summary [AVS] for today's visit. A copy of the AVS was provided either in writing and/or via [employer]. A new medicine was prescribed during this [...] inquired of any questions and answered accordingly. documented in this encounter Miscellaneous Notes * Patient Instructions - Ni Clinton RN - 05/08/2017 12:28 PM EDT Patient Education Patient Education Polymyalgia Rheumatica Polymyalgia rheumatica (also called PMR or polymyalgia) is a rheumatologic (arthritic) condition that causes pain and morning stiffness in your neck, shoulders, and hips. It is an inflammatory condition. In some people, inflammation of certain structures in the shoulder, hips, or other joints can be seen on special testing. It does not cause joint destruction, as occurs in other arthritic conditions. It usually occurs after 50 years of age, and is more common as you age. It can be confused withseveral other diseases, but it is usually easily treated. People with PMR often have, or can develop, a more severe rheumatologic condition called giant cell arteritis (also called CGA or temporal arteritis). CAUSES The exact cause of PMR is not known. ?? There are genetic factors involved. ?? Viruses have been suspected in the cause of PMR. This has not been proven. SYMPTOMS ?? Aching, pain, and morning stiffness your neck, both shoulders, or both hips. ?? Symptoms usually start slowly and build gradually. ?? Morning stiffness usually lasts at least 30 minutes. ?? Swelling and tenderness in other joints of the arms, hands, legs, and feet may occur. ?? Swelling and inflammation in the wrists can cause nerve inflammation at the wrist (carpal tunnelsyndrome). ?? You may also have low grade fever, fatigue, weakness, decreased appetite and weight loss. DIAGNOSIS ?? Your caregiver may suspect that you have PMR based on your description of your symptoms and on your exam. ?? Your caregiver will examine you to be sure you do not have diseases that can be confused with PMR. These diseases include rheumatoid arthritis, fibromyalgia, or thyroid disease. ?? Your caregiver should check for signs of giant cell arteritis. This can cause serious complications such as blindness. ?? Lab tests can help confirm that you have PMR and not other diseases, but are sometimes inconclusive. ?? X-rays cannot show PMR. However, it can identify other diseases like rheumatoid arthritis. Your caregiver may have you see a specialist in arthritis and inflammatory diseases (athletic instructor). TREATMENT The goal of treatment is relief of symptoms. Treatment does not shorten the course of the illness or prevent complications. With proper treatment, you usually feel better almost right away. ?? The initial treatment of PMR is usually a cortisone (steroid) medication. Your caregiver will help determine a starting dose. The dose is gradually reduced every few weeks to months. Treatment usually lasts one to three years. ?? Other stronger medications are rarely needed. They will only be prescribed if your symptoms do not get better on cortisone medication alone, or if they recur as the dose is reduced. ?? Cortisone medication can have different side effects. With the doses of cortisone needed for PMR, the side effects can affect bones and joints, blood sugar control in diabetes, and mood changes. Discuss this with your caregiver. ?? Your caregiver will evaluate you regularly during your treatment. They will do this in order to assess progress and to check for complications of the illness or treatment. ?? Physical therapy is sometimes useful. This is especially true if your joints are still stiff after other symptoms have improved. HOME CARE INSTRUCTIONS ?? Follow your caregiver's instructions. Do not change your dose of cortisone medication on your own. ?? Keep your appointments for follow-up lab tests and caregiver visits. Your lab tests need to be monitored. You must get checked periodically for giant cell arteritis. ?? Follow your caregiver's guidance regarding physical activity (usually no restrictions are needed) or physical therapy. ?? Your caregiver may have instructions to prevent or check for side effects from cortisone medication (including bone density testing or treatment). Follow their instructions carefully. SEEK MEDICAL CARE IF: ?? You develop any side effects from treatment. Side effects can include: ?? Elevated blood pressure. ?? High blood sugar (or worsening of diabetes, if you are diabetic). ?? Difficulty fighting off infections. ?? Weight gain. ?? Weakness of the bones (osteoporosis). ?? Your aches, pains, morning stiffness, or other symptoms get worse with time. This is especially true after your dose of cortisone is reduced. ?? You develop new joint symptoms (pain, swelling, etc.) SEEK IMMEDIATE MEDICAL CARE IF: ?? You develop a severe headache. ?? You start vomiting. ?? You have problems with your vision. ?? You have an oral temperature above 102?? F (38.9?? C), not controlled by medicine. This information is not intended to replace advice given to you by your health care provider. Make sure you discuss any questions you have with your health care provider. Document Released: 10/02/2005 Document Revised: 08/11/2013 Document Reviewed: 03/06/2016 [employer] Patient Education ??2016 [employer] * Addendum Note - Rupa Gao RMA - 05/08/2017 11:20 AM EDTAddended by: RUPA GAO on: 05/08/2017 12:54 PM Modules accepted: Orders documented in this encounter Plan of Treatment Upcoming Encounters Date Type Department Care Team (Late st Contact Info) Description 07/29/2024 9:00 AM EST Appointment [facility] [address] [place], [place] [id number] Jomar Kim MD [address] [place] [phone] documented as of this encounter Goals [...] Priority Date/Time Associated Diagnosis Comments POCT URINALYSIS AUTOMATED Routine 05/08/2017 12:53 PM EDT Urinary frequency documented in this encounter Results * POCT URINALYSIS AUTOMATED (05/08/2017 12:53 PM EDT) Color, UA CLEAR,YELLOW ,ORANGE,RUST SEP OFFICE Clarity, UA CLEAR,CLOUDY SEP OFFICE Glucose, UA neg G/DL% SEP OFFICE Bilirubin, UA neg POS/NEG SEP OFFICE Ketones, UA neg POS/NEG SEP clothes model Grav, UA 1.030 1.001 - 1.035 G/DL SEP OFFICE Blood, UA neg POS/NEG SEP OFFICE pH, UA 6.0 5.0 - 8 SEP OFFICE Protein, UA neg POS/NEG SEP OFFICE Urobilinogen, UA neg 0.2 - 1.0 MG/DL SEP OFFICE Leukocytes, UA neg POS/NEG SEP OFFICE Nitrite, UA neg POS/NEG SEP OFFICE Appear BF Clear, Slightly Cloudy Clear, Cloudy SEP OFFICE Lot Number [id number] SEP OFFICE Expiration Date 05/2017 SEP OFFICE SeriAl # SEP OFFICE Urine specimen (specimen) 05/08/2017 12:53 PM EDT Annalise Oneill MD POINT OF CARE TEST ORDERABLES Final Result SEP OFFICE * (ABNORMAL) C-REACTIVE PROTEIN (05/08/2017 12:37 PM EDT) Pathologist [facility] CRP 14.67(H) <=5.00 mg/L [facility] Blood specimen (specimen) UPPER LIMB STRUCTURE / Unknown 05/08/2017 12:37 PM EDT 05/08/2017 8:13 PM EDT Annalise Oneill MD CHEMISTRY ORDERABLES Final Re sult [facility] [address] [place] [address] * (ABNORMAL) SEDIMENTATION RATE AUTOMATED (05/08/2017 12:37 PM EDT) Pathologist [facility] Sed Rate 88(H) 0 - 30 mm/hr [facility] Blood specimen (specimen) UPPER LIMB STRUCTURE / Unknown 05/08/2017 12:37 PM EDT 05/08/2017 8:13 PM EDT us Annalise Oneill MD HEMATOLOGY ORDERABLES Final R esult Performing Organization Address City/[facility] Co de Phone Number [facility] [address] [place] [address] * CREATINE KINASE (05/08/2017 12:37 PM EDT) CK 60 26 - 192 IU/L [facility] Blood specimen (specimen) UPPER LIMB STRUCTURE / Unknown 05/08/2017 12:37 PM EDT 05/08/2017 8:13 PM EDT us Annalise Oneill MD CHEMISTRY ORDERABLES Final Re sult Performing Organization Address [facility] de Phone Number [address] [address] documented in this encounter Visit Diagnoses Diagnosis Diarrhea, unspecified type- Primary PMR (polymyalgia rheumatica) (HCC) Polymyalgia rheumatica Urinary frequency documented in this encounter Discontinued Medications Medication Sig Discontinue Reason Start Date End Da te omeprazole (PRILOSEC) 20 mg Oral Capsule, Delayed Release(E.C.)Indications :Gastroesophageal reflux disease with esophagitis TAKE 1 CAPSULE BY MOUTH ONCE DAILY Side effects 03/17/2017 05/08/2017 documented as of this encounter Care Teams Completion Engineer Relationship Specialty Start Date End Date Annalise Oneill MD [address] [place] [phone] PCP - General Family Medicine 11/19/16 08/19/18 Garett Holt MD Internal Medicine-Gastroenterology 12/22/12 Ruiz Stokes MD [address] [place] [id number] Internal Medicine-Cardiovascular Disease 07/25/14 Yenny Schwab MD [address] [place] [address] Internal Medicine-Rheumatology 12/11/16 documented as of this encounter
--- OUTSIDE RECORDS SUMMARY | 2024-07-22 16:13 | XMS_ITS | Encounter Summary ---
Author Organization [place] [address] Care Team Providers Care Senior Informatic[employer] Etl Developer Name Role Phone Garett Holt MD Unavailable [phone] Ruiz Stokes MD Unavailable [phone] Annalise Oneill MD Primary Care Provider Yenny Schwab MD Unavailable [phone] Reason for Visit * Reason Onset Date Comments Other 03/02/2017 Encounter Details Date Type Department Care Team (Late st Contact Info) Description 03/02/2017 Telephone [facility] [place] [facility] [address] [phone] Yenny Schwab MD [address] [phone] Other Social History Tobacco Use Types Packs/Day [...] on file documented as of this encounter Miscellaneous Notes * Telephone Encounter - Lea Paulino CCMA - 03/03/2017 9:19 AM EDT Pt notified and voiced her understanding. * Telephone Encounter - Yenny Schwab MD - 03/02/2017 2:32 PM EDT Please let the patient know her labs were normal. She can decrease prednisone to 60 mg daily. She should let me know if she is running low on the prednisone so we can send new script. It is very important that she does not run out of prednisone. Please advise the patient to have labs checked in 4 weeks. documented in this encounter Plan of Treatment Upcoming Encounters Date Type Department Care Team (Late st Contact Info) Description 07/29/2024 9:00 AM EST Appointment [facility] [address] [place], [place] [phone] Jomar Kim MD [address] [place] [address] documented as of this encounter [...] On track( 021 10:23 AM EDT) [place], Jaunita, EXPORT SALES MANAGER HEMOGLOBIN A1C < 7.0 Result Component 5.6( 4 3:04 PM EST) Rachel Regan RMA documented as of this encounter Visit Diagnoses Diagnosis Temporal arteritis (HCC)- Primary Giant cell arteritis PMR (polymyalgia rheumatica) (HCC) Polymyalgia rheumatica documented in this encounter Orders Lab Orders Without Results Count Last Ordered D ate First Ordered Date C-REACTIVE PROTEIN 1 03/02/2017 SEDIMENTATION RATE AUTOMATED 03/02/2017 documented in this encounter Care Teams Senior Inform[employer] Etl Developer Relationship Specialty Start Date End Date Annalise Oneill MD [address] [place] [address] [phone] PCP - General Family Medicine 11/19/16 08/19/18 Garett Holt MD Internal Medicine-Gastroenterology 12/22/12 Ruiz Stokes MD [address] [place] [phone] Internal Medicine-Cardiovascular Disease 07/25/14 Yenny Schwab MD [address] [facility] [address] [place] [address] Internal Medicine-Rheumatology 12/11/16 documented as of this encounter
--- OUTSIDE RECORDS SUMMARY | 2024-07-22 16:13 | XMS_ITS | Encounter Summary ---
Author Organization [place] [address] Care Team Providers Care Product Accountant Name Role Phone Garett Holt MD Unavailable [phone] Ruiz Stokes MD Unavailable [phone] Annalise Oneill MD Primary Care Provider [phone] Yenny Schwab MD Unavailable [phone] Reason for Visit * Reason Comments Eye Drainage reports 3-4 week his tory of waking with eyes matted shut. also c/o bilateral ankle swelling for over a week. cpta-none Leg Swelling Encounter Details Date Type Department Care Team (Late st Contact Info) Description 06/26/2017 10:23 AM EDT - 06/26/2017 12:48 PM EDT [facility] [address] [facility] [place] [address] Rob Zamora MD [address] [facility] [place] [address] Pain and swelling of left lower leg (Primary Dx); Conjunctivitis of both eyes, unspecified conjunctivitis type; Left leg cellulitis Discharge Disposition: Home or Self Care Social [...] Sign Reading Time Taken Comments Blood Pressure 145/68 06/26/2017 10:25 AM EDT Pulse 78 06/26/2017 10:25 AM EDT Temperature 36.7 ??C (98 ??F) 06/26/2017 10:25 AM EDT Respiratory Rate 16 06/26/2017 10:25 AM EDT Oxygen Saturation 100% 06/26/2017 10:25 AM EDT Inhaled Oxygen Concentration - - Weight 120.2 kg (265 lb) 06/26/2017 10:25 AM EDT Height 152.4 cm (5') 06/26/2017 10:25 AM EDT Body Mass Index 51.75 06/26/2017 10:25 AM EDT documented in this encounter [...] Elle Almanza LPN documented in this encounter Discharge Instructions * Discharge Instructions* Rob Zamora MD - 06/26/2017 12:15 PM EDT Use eyedrops as prescribed. Take antibiotics as prescribed. Take water pill daily. Elevate your leg. Follow-up with family doctor for recheck Friday. Return to emergency department if worse Eat 1 banana for potassium every other day while taking Lasix * Attachments The following attachments cannot be sent through Care Everywhere. * CELLULITIS, ADULT (BULGARIAN) * EDEMA (BULGARIAN) documented in this encounter Medications at Time of Discharge CALCIUM ORAL Take 1 Tab by mouth daily. gentamicin (GARAMYCIN) 0.3 % Opht Drops Place 1 Drop into both eyes every 6 hours for 5 days. 1 Bottle 06/26/2017 07/01/2017 documented as of this encounter Ordered Prescriptions Prescription Sig Dispense Quantity Refills Last Filled Start Date End Date fUROsemide (LASIX) 20 mg Oral Tablet Take 1 Tab by mouth daily. 30 Tab 06/26/2017 01/06/2018 gentamicin (GARAMYCIN) 0.3 % Opht Drops Place 1 Drop into both eyes every 6 hours for 5 days. 1 Bottle 06/26/2017 07/01/2017 clindamycin (CLEOCIN) 300 mg Oral Capsule Take 1 Cap by mouth 3 times daily for 10 days. 30 Cap 06/26/2017 06/27/2017 documented in this encounter Discharge Disposition Disposition Code Departure Means Destination Home or Self Senior Living documented in this encounter ED Notes * Asha Mayfield RN - 06/26/2017 11:58 AM EDT Pt returned from ultrasound, per w/c, without incident. * Rob Zamora MD - 06/26/2017 10:19 AM EDT Images from the original note were not included. CHIEF COMPLAINT Chief Complaint Patient presents with ??? Eye Drainage reports 3-4 week history of waking with eyes matted shut. also c/o bilateral ankle swelling for over a week. cpta-none ??? Leg Swelling HPI Alyssa Jamil is a 62 y.o. female. Patient complains of left leg swelling. She states this is been ongoing for the last couple of weeks or so. It has gotten worse over the last several days. She is having cramping especially at night in her calf. She has not had a fever. She has had swelling in herextremities but never to this degree and is usually both lower legs. She is only noticeable swelling in the left leg currently. She is not short of breath. She has no chest pain. Patient had been on Lasix but that was discontinued a few months ago by her regular doctor. Patient is unclear as to whythat was discontinued. Currently patient describes her pain as a mild cramp in her calf with pressure sensation in her lower leg and foot, constant, worse at night when she sleeps. Also worse with walking. Patient is not taking anything for this. Patient also complains of her eyes being matted down in the mornings for the last several weeks. She has been taking allergy medicine and Robitussin without any improvement. REVIEW OF SYSTEMS See HPI for further [...] OR BIPAP PER PATIENT ??? Ulcer (HCC) FAMILY HISTORY Family History Problem Relation Age of Onset ??? Heart Disease Father ??? Cataracts Father ??? Diabetes Father ??? Cancer Maternal Grandmother ??? Colon Cancer Maternal Grandmother ??? Anesth Problems Neg Hx SOCIAL HISTORY Social History Social History ??? Marital status: [...] ??? None Social History Narrative ??? None SURGICAL HISTORY Past Surgical History: Procedure Laterality Date ??? ARTERY BIOPSY Right 01/06/2017 RIGHT TEMPORAL ARTERY BIOPSY ; Surgeon: Christa Chavez MD; Location: [facility] OR; Service: General ??? CARDIAC CATHETERIZATION 04/2015 ??? CHOLECYSTECTOMY 1989 ??? COLONOSCOPY ??? COLONOSCOPY 02/17/2013 Surgeon: Garett Holt MD; Location: [facility]; Service: ??? DENTAL SURGERY upper and lower teeth removed ??? UPPER GASTROINTESTINAL ENDOSCOPY ??? UPPER GASTROINTESTINAL ENDOSCOPY 02/17/2013 Surgeon: Garett Holt MD; Location: [facility]; Service: CURRENT MEDICATIONS No current facility-administered medications on file prior to encounter. Current Outpatient Prescriptions on File Prior to Encounter Medication Sig Dispense Refill ??? amLODIPine (NORVASC) 10 mg Oral Tablet Take 1 Tab by mouth daily. 90 Tab 1 ??? Aspirin (ASPIRIN) 81 mg Take 1 Tab by mouth daily. 100 Tab 4 ??? atorvastatin (LIPITOR) 20 mg Oral Tablet TAKE 1 TABLET BY MOUTH ONCE DAILY 30 Tab 5 ??? Blood-Glucose [facility] Kit Please fill with what her ins will cover 1 Kit 0 ??? CALCIUM ORAL Take by mouth daily. ??? cholecalciferol, vitamin D3, 1,000 unit Oral Tablet Take 1 Tab by mouth daily. ??? docusate sodium (STOOL SOFTENER) 100 mg Oral Capsule Take 1 Cap by mouth 2 times daily. 180 Cap1 ??? lisinopril (PRINIVIL;ZESTRIL) 20 mg Oral Tablet TAKE 1 TABLET BY MOUTH ONCE DAILY 90 Tab 5 ??? loratadine (CLARITIN) 10 mg Oral Tablet Take 1 Tab by mouth daily. 30 Tab 2 ??? metFORMIN (GLUCOPHAGE) 500 mg Oral Tablet Take 1 Tab by mouth daily. with breakfast 90 Tab 0 ??? nortriptyline (PAMELOR) 25 mg Oral Capsule Take 1 Cap by mouth nightly. 30 Cap 2 ??? STOOL SOFTENER 100 mg Oral Capsule TAKE 1 CAPSULE BY MOUTH TWICE DAILY 60 Cap 2 ??? predniSONE (DELTASONE) 10 mg Oral Tablet Take 6 Tabs by mouth daily. (Patient taking differently: Take 10 mg by mouth daily. Pt advised to only take 1 tab until see's PCP) 180 Tab 1 ALLERGIES Allergies Allergen Reactions ??? Amoxil [Amoxicillin] Hives ??? Clarithromycin hives ??? Naproxen Rash ??? Nexium [Esomeprazole Magnesium] Hives and Rash Blisters in Mouth PHYSICAL EXAM VITAL SIGNS: ED Triage Vitals [06/26/17 1025] Temp 98 ??F (36.7 ??C) Pulse 78 Resp 16 BP 145/68 SpO2 100 % Height 5' (1.524 m) Weight 265 lb (120.2 kg) Constitutional: Female adult in no distress HENT:Atraumatic, moist membranes Eyes: PER, EOMI, Conjunctiva normal, No discharge noted at this time Lymphatic: No lymphadenopathy noted. Cardiovascular: Normal heart rate, Normal rhythm Thorax & Lungs: No respiratory distress Abdomen: Soft, nondistended, nontender Skin: Warm and dry, no rash Extremity: 3-4+ pitting edema in left lower extremity below the knee, slight redness to the skin inthe left lower extremity below the knee. Neurologic: Alert , Nonfocal Psychiatric: Affect normal LABS/RADIOLOGY Labs Reviewed BASIC METABOLIC PANEL - Abnormal Result Value Total CO2 30 (*) Anion Gap 0 (*) Sodium 136 Potassium 3.5 Chloride 106 Calcium 10.0 Glucose Lvl 98 BUN 10 Creatinine 0.90 GFR Afr Am 80 GFR Non Afr Am 69 CBC WITH DIFF - Abnormal RBC 3.60 (*) Hgb 10.4 (*) Hct 31.4 (*) WBC 8.5 MCV 87.1 MCH 29.0 MCHC 33.3 RDW 15.0 Platelet 276 MPV 7.5 Neut Percent 68.8 Lymph Percent 18.2 Benzie Percent 9.2 Eos Percent 3.3 Baso Percent 0.5 Neut # 5.8 Lymph # 1.5 Benzie # 0.8 Eos# 0.3 Baso # 0.0 [facility] LOWER EXTREMITY VENOUS LEFT (Results Pending) COURSE & MEDICAL DECISION MAKING Pertinent Labs & Imaging studies reviewed. (See chart for details) Orders this Encounter Orders Placed This Encounter Procedures ??? Basic Metabolic Panel ??? CBC with Auto Diff Medications Administered Medications - No data to display Outpatient Medication Changes New Prescriptions CLINDAMYCIN (CLEOCIN) 300 MG ORAL CAPSULE Take 1 Cap by mouth 3 times daily for 10 days. FUROSEMIDE (LASIX) 20 MG ORAL TABLET Take 1 Tab by mouth daily. GENTAMICIN (GARAMYCIN) 0.3 % OPHT DROPS Place 1 Drop into both eyes every 6 hours for 5 days. Lower external male chest reveal no evidence of DVT. There was some redness of the skin of the lower leg. Patient will be treated for cellulitis. She is a follow-up with Dr. Oneill Friday for recheck. Will also place patient on Lasix 20 mg daily, which she has been on in the past. Patient also given gentamicin eyedrops for her complaint of conjunctivitis. FINAL IMPRESSION 1. Pain and swelling of left lower leg 2. Conjunctivitis of both eyes, unspecified conjunctivitis type 3. Left leg cellulitis Condition at Discharge/Transfer from Department: Stable This chart was completed using voice recognition technology and may contain unintended errors Rob Zamora MD 06/26/17 1216 documented in this encounter Plan of Treatment Upcoming Encounters Date Type Department Care Team (Late st Contact Info) Description 07/29/2024 9:00 AM EST Appointment [facility] [address] [place] [address] Jomar Kim MD [address] [place] [address] documented as of this encounter [...] Procedure Name Priority Date/Time Associated Diagnosis Comments [facility] LOWER EXTREMITY VENOUS LEFT STAT 06/26/2017 11:49 AM EDT CBC WITH DIFF STAT 06/26/2017 10:52 AM EDT BASIC METABOLIC PANEL STAT 06/26/2017 10:52 AM EDT documented in this encounter Results * [facility] LOWER EXTREMITY VENOUS LEFT (06/26/2017 11:49 AM EDT) Anatomical Region Laterality Modality Vascular, Thigh, Leg Electrocard iography 06/26/2017 11:3 0 AM EDT Impressions 06/26/2017 2:36 PM EDT ??CONCLUSIONS ??Technically difficult evaluation of left calf veins. ??Patency of calf vein is established. ??Isolated left calf vein cannot be excluded. ??No evidence of deep vein thrombosis identified in the left lower extremity. ?No evidence of superficial vein thrombosis identified in the left lower extremity. ?No evidence of thrombosis is noted in the contralateral right common femoral vein. ?Austin Cabezas DO Narrative Procedure Note Austin Cabezas DO - 06/26/2017 IMPRESSION CONCLUSIONS Technically difficult evaluation of left calf veins. Patency of calf vein is established. Isolated left calf vein cannot be excluded. No evidence of deep vein thrombosis identified in the left lowerextremity. No evidence of superficial vein thrombosis identified in the left lowerextremity. No evidence of thrombosis is noted in the contralateral right commonfemoral vein. Austin Cabezas DO Rob Zamora MD IMG VASCULAR ORDERABLES Final Re sult * (ABNORMAL) CBC WITH DIFF (06/26/2017 10:52 AM EDT) WBC 8.5 4.0 - 11.0 x10(3)/mcL 06/26/2017 10:58 AM EDT [facility] RBC 3.60(L) 3.80 - 5.10 x10(6)/mcL 06/26/2017 10:58 AM EDT [facility] Hgb 10.4(L) 12.0 - 15.6 gm/dL 06/26/2017 10:58 AM ED [facility] Hct 31.4(L) 35.7 - 45.9 % 06/26/2017 10:58 AM EDT [facility] MCV 87.1 82.5 - 99.8 fL 06/26/2017 10:58 AM ED [employer] [facility] [facility] MCH 29.0 27.0 - 34.3 pg 06/26/2017 10:58 AM EDT [facility] MCHC 33.3 32.1 - 35.3 gm/dL 06/26/2017 10:58 AM [employer] [facility] RDW 15.0 11.5 - 15.0 % 06/26/2017 10:58 AM ED [employer] [facility] [facility] Platelet 276 144 - 423 x10(3)/mcL 06/26/2017 10:58 AM [employer] [facility] MPV 7.5 6.8 - 10.8 fL 06/26/2017 10:58 AM ED [facility] Neut Percent 68.8 % 06/26/2017 10:58 AM [employer] [facility] Lymph Percent 18.2 % 06/26/2017 10:58 AM [email or web address] Benzie Percent 9.2 % 06/26/2017 10:58 AM ED [employer] [facility] [facility] Eos Percent 3.3 % 06/26/2017 10:58 AM [email or web address] Baso Percent 0.5 % 06/26/2017 10:58 AM ED [employer] [facility] [facility] Neut # 5.8 1.8 - 7.7 x10(3)/mcL 06/26/2017 10:58 AM EDT [employer] [facility] [facility] Lymph # 1.5 0.6 - 4.8 x10(3)/mcL 06/26/2017 10:58 AM [email or web address] Benzie # 0.8 0.0 - 1.3 x10(3)/mcL 06/26/2017 10:58 AM EDT [facility] Eos# 0.3 0.0 - 0.5 x10(3)/mcL 06/26/2017 10:58 AM EDT [facility] Baso # 0.0 0.0 - 0.2 x10(3)/mcL 06/26/2017 10:58 AM EDT [facility] Blood VENOUS BLOOD / Unknown Venipuncture / Unknown 06/26/2017 10:52 AM EDT 06/26/2017 10:55 AM EDT us Rob Zamora MD HEMATOLOGY ORDERABLES Final Resu lt [facility] [address] [place] [address] * (ABNORMAL) BASIC METABOLIC PANEL (06/26/2017 10:52 AM EDT) Sodium 136 136 - 145 mmol/L 06/26/2017 11:20 AM EDT [facility] Potassium 3.5 3.5 - 5.0 mmol/L 06/26/2017 11:20 AM [facility] Chloride 106 98 - 107 mmol/L 06/26/2017 11:20 AM [facility] Total CO2 30(H) 22 - 29 mmol/L 06/26/2017 11:20 AM [facility] Anion Gap 0(L) 7 - 16 mmol/L 06/26/2017 11:20 AM [facility] Calcium 10.0 8.8 - 10.2 mg/dL 06/26/2017 11:20 AM T [facility] Glucose Lvl 98 82 - 100 mg/dL 06/26/2017 11:20 AM T [facility] BUN 10 8 - 23 mg/dL 06/26/2017 11:20 AM T [facility] Creatinine 0.90 mg/dL 06/26/2017 11:20 AM T [facility] GFR Afr Am 80 mL/min/1.7 3 m2 06/26/2017 11:20 AM T [facility] GFR Non Afr Am 69 mL/min/1.7 3 m2 06/26/2017 11:20 AM T [facility] Comment: GFR Afr Am and GFR Non Afr Am calculated using CKD-EPI equation. ?? GFR Category ?GFR(mL/min/1.73 m??) ? Kidney Function G1 ?>=90 ?Normal or high G2 ?60-89 ? Mildly decreased G3a ? 45-59 ? Mildly to moderately decreased G3b ? 30-44 ? Moderately to severely decreased G4 ?15-29 ? Severely decreased G5 ?<15 ? Kidney Failure Blood VENOUS BLOOD / Unknown Venipuncture / Unknown 06/26/2017 10:52 AM EDT 06/26/2017 10:55 AM EDT us Rob Zamora MD CHEMISTRY ORDERABLES Final Resul t [facility] [address] [place] [address] documented in this encounter Visit Diagnoses Diagnosis Pain and swelling of left lower leg- Primary Conjunctivitis of both eyes, unspecified conjunctivitis type Left leg cellulitis Cellulitis and abscess of leg, except foot documented in this encounter Care Teams Product Accountant Relationship Specialty Start Date End Date Annalise Oneill MD [address] [place] [address] [place] [address] PCP - General Family Medicine 11/19/16 08/19/18 Garett Holt MD Internal Medicine-Gastroenterology 12/22/12 Ruiz Stokes MD [address] [facility] [place] [address] Internal Medicine-Cardiovascular Disease 07/25/14 Yenny Schwab MD [address] [facility] [address] [place] [address] Internal Medicine-Rheumatology 12/11/16 documented as of this encounter
--- OUTSIDE RECORDS SUMMARY | 2024-07-22 16:13 | XMS_ITS | Encounter Summary ---
Author Organization [place] [address] Care Team Providers Care Parts Room Clerk Name Role Phone Garett Holt MD Unavailable [phone] Ruiz Stokes MD Unavailable [phone] Annalise Oneill MD Primary Care Provider Yenny Schwab MD Unavailable [phone] Reason for Visit * Reason Onset Date Comments Other 06/30/2017 Encounter Details Date Type Department Care Team (Late st Contact Info) Description 06/30/2017 Telephone [facility] Rheumatology [facility] [address] [address] Yenny Schwab MD [address] [address] Other Social History Tobacco Use Types Packs/Day [...] encounter Miscellaneous Notes * Telephone Encounter - Reji Carrion - 06/30/2017 9:30 AM EDT Pt's friend called and states that pt wants to d/c services with this office. documented in this encounter Plan of Treatment Upcoming Encounters Date Type Department Care Team (Late st Contact Info) Description 07/29/2024 9:00 AM EST Appointment [facility] [address] [place] [address] Jomar Kim MD [address] [place] [address] documented as of this encounter [...] on filedocumented in this encounter Care Teams Parts Room Clerk Relationship Specialty Start Date End Date Annalise Oneill MD [address] [place] [phone] PCP - General Family Medicine 11/19/16 08/19/18 Garett Holt MD Internal Medicine-Gastroenterology 12/22/12 Ruiz Stokes MD [address] [place] [address] Internal Medicine-Cardiovascular Disease 07/25/14 Yenny Schwab MD [address] [facility] [address] [place] [address] Internal Medicine-Rheumatology 12/11/16 documented as of this encounter
--- OUTSIDE RECORDS SUMMARY | 2024-07-22 16:13 | XMS_ITS | Encounter Summary ---
Author Organization [place] [address] Care Team Providers Care Video Game Script Writer Name Role Phone Garett Holt MD Unavailable [phone] Ruiz Stokes MD Unavailable [phone] Annalise Oneill MD Primary Care Provider [phone] Yenny Schwab MD Unavailable [phone] Reason for Visit * Reason Onset Date Comments Medication Refill 07/01/2017 Encounter Details Date Type Department Care Team (Late st Contact Info) Description 07/01/2017 Refill [facility] [address] [place] [address] Wendy Espinoza LPN [address] [place] [address] Medication Refill Social History Tobacco Use Types [...] Carter LPN * Does this person have serious [...] Refills Last Filled Start Date End Date Cholecalciferol, Vitamin D3, 2,000 unit Oral Tablet Take 1/2 daily 32 Tab 2 07/01/2017 9 omeprazole (PRILOSEC) 20 mg Oral Capsule, Delayed Release(E.C.) Take 1 Cap by mouth daily. 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 with breakfast 63 Tab 2 07/01/2017 8 loratadine (CLARITIN) 10 mg Oral TabletIndications:Se asonal allergic rhinitis due to pollen, unspecified chronicity Take 1 Tab by mouth daily. 63 Tab 2 07/01/2017 8 lisinopril (PRINIVIL;ZESTRIL) 20 mg Oral TabletIndications:Es sential hypertension Take 1 Tab by mouth daily. 63 Tab 2 07/01/2017 8 atorvastatin (LIPITOR) 20 mg Oral TabletIndications:Hy perlipidemia, unspecified hyperlipidemia type Take 1 Tab by mouth daily. 32 Tab 2 07/01/2017 8 aspirin (ASPIRIN) 81 mg Oral Tablet, Chewable Take 1 Tab by mouth daily. 63 Tab 2 07/01/2017 8 amLODIPine (NORVASC) 10 mg Oral TabletIndications:Es sential hypertension Take 1 Tab by mouth daily. 63 Tab 2 07/01/2017 8 documented in this encounter Miscellaneous Notes * Telephone Encounter - Wendy Espinoza LPN - 07/01/2017 4:15 PM EDT Script printed and faxed to [facility] documented in this encounter Plan of Treatment Upcoming Encounters Date Type Department Care Team (Late st Contact Info) Description 07/29/2024 9:00 AM EST Appointment [facility] [address] [place] [address] Jomar Kim MD [address] [facility] [place] [address] documented as of this encounter Goals Goal Patient Goal Type Associated Problems Recent Progress Patient-Stated? Author Blood Pressure < 140/90 Blood Pressure 110/72(2023 2:44 PM EDT) No Rachel Rogers RMA BMI (Calculated) < 30 General 50.9(04/27/20 2:44 PM EDT) No Rachel Rogers RMA Eat better, exercise, reach an ideal body weight General No Ni Clinton, RN Stay Tobacco Free Lifestyle On track( 10:23 AM EDT) No Wendy Espinoza LPN HEMOGLOBIN A1C < 7.0 Result Component 5.6( 4 3:04 PM EST) Yu RogersRachel, MULU documented as of this encounter Visit Diagnoses Diagnosis Essential hypertension Unspecified essential hypertension Hyperlipidemia, unspecified hyperlipidemia type Seasonal allergic rhinitis due to pollen, unspecified chronicity Type 2 diabetes mellitus without complication, unspecified shelter insulin use status documented in this encounter Discontinued Medications Medication Sig Discontinue Reason Start Date End Da te amLODIPine (NORVASC) 10 mg Oral TabletIndications:Essenti al hypertension Take 1 Tab by mouth daily. Reorder 11/19/2016 07/01/2017 Aspirin (ASPIRIN) 81 mg Take 1 Tab by mouth daily. Reorder 01/02/2014 07/01/2017 atorvastatin (LIPITOR) 20 mg Oral TabletIndications:Hyperli pidemia, unspecified hyperlipidemia type TAKE 1 TABLET BY MOUTH ONCE DAILY Reorder 02/24/2017 07/01/2017 lisinopril (PRINIVIL;ZESTRIL) 20 mg Oral TabletIndications:Essenti al hypertension TAKE 1 TABLET BY MOUTH ONCE DAILY Reorder 02/24/2017 07/01/2017 loratadine (CLARITIN) 10 mg Oral TabletIndications:Seasona l allergic rhinitis due to pollen Take 1 Tab by mouth daily. Reorder 12/04/2016 07/01/2017 metFORMIN (GLUCOPHAGE) 500 mg Oral TabletIndications:Type 2 diabetes mellitus without complication, unspecified termite control technician insulin use status Take 1 Tab by mouth daily. with breakfast Reorder 01/09/2017 07/01/2017 documented as of this encounter Care Teams Video Game Script Writer Relationship Specialty Start Date End Date Annalise Oneill MD [address] [place] [phone] PCP - General Family Medicine 11/19/16 08/19/18 Garett Holt MD Internal Medicine-Gastroenterology 12/22/12 Ruiz Stokes MD [address] [place], [place] [id number] Internal Medicine-Cardiovascular Disease 07/25/14 Yenny Schwab MD [address] [facility] [address] [place] [address] Internal Medicine-Rheumatology 12/11/16 documented as of this encounter
--- OUTSIDE RECORDS SUMMARY | 2024-07-22 16:13 | XMS_ITS | Encounter Summary ---
Author Organization [place] [address] Care Team Providers Care Gravity Meter Operator Name Role Phone Garett Holt MD Unavailable [phone] Ruiz Stokes MD Unavailable [phone] Annalise Oneill MD Primary Care Provider [phone] Yenny Schwab MD Unavailable [phone] Reason for Visit * Reason Comments Edema pt states she feels horrible, last 1-2 days, swollen in her face, dizziness, fatigue, blurred vision, excessive thirst, trouble swallowing, family member is ?? if side effect of prednisone she was just put on. Encounter Details Date Type Department Care Team (Late st Contact Info) Description 03/13/2017 1:00 PM EDT Office Visit [facility] [address] [place] [address] Annalise Oneill MD [address] [place] [address] Dizziness (Primary Dx); Type 2 diabetes mellitus without complication, unspecified dental manager insulin use status; Current chronic use 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; Ventral hernia without obstruction or gangrene; Chest pain at rest Social History Tobacco Use Types Packs/Day Years [...] Sign Reading Time Taken Comments Blood Pressure 118/70 03/13/2017 1:42 PM EDT Pulse 77 03/13/2017 1:42 PM EDT Temperature 36.8 ??C (98.3 ??F) 03/13/2017 1:09 PM ED T Respiratory Rate 14 03/13/2017 1:09 PM EDT Oxygen Saturation 98% 03/13/2017 1:42 PM EDT Inhaled Oxygen Concentration - - Weight 121.3 kg (267 lb 6.4 oz) 03/13/2017 1:09 PM EDT Height 162.6 cm (5' 4 ) 03/13/2017 1:09 PM EDT Body Mass Index 45.9 03/13/2017 1:09 PM EDT documented in this encounter Progress Notes * Annalise Oneill MD - 03/13/2017 1:00 PM EDT Subjective Chief Complaint Patient presents with ??? Edema pt states she feels horrible, last 1-2 days, swollen in her face, dizziness, fatigue, blurred vision, excessive thirst, trouble swallowing, family member is ?? if side effect of prednisone she was just put on. She complains of feeling terrible sine waking up this morning. She feels dizzy and weak in the legs She has some abd pain in the middle of her stomach Last ate 2 hrs ago-- had salt cured flores. Some nausea but no vomiting. She had a slight nose bleed this morning. She had a bowel movement earlier today that was hard She has been on prednisone for temporal arteritis Testing blood sugars about once a week Review of Systems Constitutional: Positive for appetite change and fatigue. Negative for activity change and fever. HENT: Positive for dental problem and trouble swallowing. Eyes: Positive for visual disturbance. Respiratory: Negative for chest tightness, shortness of breath and wheezing. Cardiovascular: Negative for chest pain, palpitations and leg swelling. Endocrine: Positive for heat intolerance and polydipsia. Neurological: Positive for dizziness, weakness, light-headedness and headaches. Objective BP 118/70 (BP Location: Left arm, Patient Position: Sitting) Pulse 77 Temp 98.3 ??F (36.8 ??C) (Temporal) Resp 14 Ht 5' 4 (1.626 m) Wt 267 lb 6.4 oz (121.3 kg) SpO2 98% BMI 45.90 kg/m?? Physical Exam Constitutional: She is oriented [...] normal. She exhibits no mass. There is tenderness. A hernia is present. Hernia confirmed positive in the ventral area (large). Neurological: She is alert and oriented to person, place, and time. She has normal reflexes. Patient spaced out for a few seconds while in the room and would not answer her friend with her today when I called her name she answered and reported she was having a pain in her chest. Skin: Skin is warm and dry. Psychiatric: She has a normal mood and affect. Judgment normal. Vitals reviewed. During the visit the patient experienced acute chest pain. At first she describes it as a tightnessbut then stated it felt like heartburn. It remained constant throughout her visit. Results for orders placed or performed in visit on 03/13/17 POCT GLUCOSE Result Value Ref Range Glucose 91 60 - 200 MG/DL Lot Number [id number] Expiration Date 03/26/2018 SeriAl # Meter POCT EKG Impression .normal sinus rhythm no acute changes Patient had an angiogram in 2014 which demonstrated normal coronary arteries Lab Results Component Value Date WBC 14.3 (H) 02/28/2017 HGB 12.5 02/28/2017 HCT 38.8 02/28/2017 PLT 238 02/28/2017 CHOLESTEROL 232 (H) 11/19/2016 TRIG 98 11/19/2016 HDL 54 11/19/2016 LDLCALC 158 (H) 11/19/2016 ALT 26 02/28/2017 AST 12 02/28/2017 NA 136 02/28/2017 K 5.6 (H) 02/28/2017 CL 95 (L) 02/28/2017 CALCIUM 11.2 (H) 02/28/2017 BUN 29 (H) 02/28/2017 CREATININE 0.91 02/28/2017 GFRAFRAM >60 02/28/2017 GFRNONAFRAM >60 02/28/2017 CO2 27 02/28/2017 GLUCOSE 91 03/13/2017 GLU 132 (H) 02/28/2017 HGBA1C 6.3 11/19/2016 MICROALBUR 0 07/09/2016 TSH 1.480 07/09/2016 TSHREFLEX 1.560 11/19/2016 BIMQ41DZ 31.7 12/11/2016 Diagnoses and all orders for this visit: 1. Dizziness - POCT GLUCOSE 2. Type 2 diabetes mellitus without complication, unspecified retirement insulin use status (Chronic) 3. Current chronic use 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 4. Ventral hernia without obstruction or gangrene 5. Chest pain at rest - POCT EKG Patient is acutely ill and developed sudden onset of chest pain during her office visit. Her chest pain is atypical in nature. There is no EKG changes. She had had a angiogram in 2014 showing normal coronary arteries. Differential diagnosis of patient's current symptoms is quite fast. She could be having side effects to her prednisone including hypoglycemic events. She recently had elevated potassium levels and could have electrolyte imbalance. She has a large ventral hernia that does not appear incarcerated but could be a source of her abdominal pain. Given her vascular symptoms and poor ability to describe them I advised her to be taken to [facility] emergency room for evaluation. Case is discussed with ER doctor at [place]. [facility] Documentation Medication Compliance - compliant most of the time Understanding of current medications - fair Self-Management Tools - none Self-Management Ability - fair Willingness to adopt healthy behaviors - fair Patient Barriers: no significant Existing barriers discussed and addressed in orders and /or referrals. Educated patient and Friend regarding the diagnosis, medication/treatment, goals, self-management tools and instructions based on their care plan. They verbalized understanding of the education givenon the After Visit Summary [AVS] for today's visit. A copy of the AVS was provided either in writing and/or via [employer]. A new medicine was not prescribed on this visit. documented in this encounter Miscellaneous Notes * Patient Instructions - Bridget Gao RMA - 03/13/2017 1:07 PM EDT Patient Education Edema Edema is an abnormal buildup of fluids in your body??tissues. Edema is somewhat??dependent on gravity to pull the fluid to the lowest place in your body. That makes the condition more common in the legs and thighs (lower extremities). Painless swelling of the feet and ankles is common and becomes mo re likely as you get older. It is also common in looser tissues, like around your eyes. When the affected area is squeezed, the fluid may move out of that spot and leave a dent for a few moments. This dent is called pitting. CAUSES There are many possible causes of edema. Eating too much salt and being on your feet or sitting fora long time can cause edema in your legs and ankles. Hot weather may make edema worse. Common medical causes of edema include: ?? Heart failure. ?? Liver disease. ?? Kidney disease. ?? Weak blood vessels in your legs. ?? Cancer. ?? An injury. ?? . ?? Some medications. ?? Obesity.?? SYMPTOMS Edema is usually painless.??Your skin may look swollen or shiny. DIAGNOSIS Your health care provider may be able to diagnose edema by asking about your medical history and doing a physical exam. You may need to have tests such as X- rays, an electrocardiogram, or blood teststo check for medical conditions that may cause edema. TREATMENT Edema treatment depends on the cause. If you have heart, liver, or kidney disease, you need the treatment appropriate for these conditions. General treatment may include: ?? Elevation of the affected body part above the level of your heart. ?? Compression of the affected body part. Pressure from elastic bandages or support stockings squeezes the tissues and forces fluid back into the blood vessels. This keeps fluid from entering the tissues. ?? Restriction of fluid and salt intake. ?? Use of a water pill (diuretic). These medications are appropriate only for some types of edema. They pull fluid out of your body and make you urinate more often. This gets rid of fluid and reducesswelling, but diuretics can have side effects. Only use diuretics as directed by your health care provider. HOME CARE INSTRUCTIONS ?? Keep the affected body part above the level of your heart when you are lying down. ? Do not sit still or stand for prolonged periods. ? Do not put anything directly under your knees when lying down. ?? Do not wear constricting clothing or garters on your upper legs. ? Exercise your legs to work the fluid back into your blood vessels. This may help the swelling godown. ? Wear elastic bandages or support stockings to reduce ankle swelling as directed by your health care provider. ? Eat a low-salt diet to reduce fluid if your health care provider recommends it. ? Only take medicines as directed by your health care provider.?? SEEK MEDICAL CARE IF: ?? Your edema is not responding to treatment. ?? You have heart, liver, or kidney disease and notice symptoms of edema. ?? You have edema in your legs that does not improve after elevating them. ? You have sudden and unexplained weight gain. SEEK IMMEDIATE MEDICAL CARE IF: ?? You develop shortness of breath or chest pain. ? You cannot breathe when you lie down. ?? You develop pain, redness, or warmth in the swollen areas. ? You have heart, liver, or kidney disease and suddenly get edema. ?? You have a fever and your symptoms suddenly get worse. MAKE SURE YOU: ?? Understand these instructions. ?? Will watch your condition. ?? Will get help right away if you are not doing well or get worse. This information is not intended to replace advice given to you by your health care provider. Make sure you discuss any questions you have with your health care provider. Document Released: 08/25/2006 Document Revised: 09/15/2015 Document Reviewed: 06/17/2014 [employer] Patient Education ??2016 [employer] documented in this encounter Plan of Treatment Upcoming Encounters Date Type Department Care Team (Late st Contact Info) Description 07/29/2024 9:00 AM EST Appointment [facility] [address] [place] [address] Jomar Kim MD [address] [place] [address] documented as of this encounter [...] Date/Time Associated Diagnosis Comments POCT EKG Routine 03/13/2017 1:29 PM EDT Chest pain at rest POCT GLUCOSE Routine 03/13/2017 1:16 PM EDT Dizziness documented in this encounter Results * POCT EKG (03/13/2017 1:29 PM EDT) 03/13/2017 1:29 PM EDT Impressions [facility] - 03/13/2017 1:29 PM EDT .normal sinus rhythm no acute changes us Annalise Oneill MD POINT OF CARE CARDIOLOGY Mercedes lind Result [facility] * POCT GLUCOSE (03/13/2017 1:16 PM EDT) Glucose 91 60 - 200 MG/DL [facility] Lot Number [id number] [facility] Expiration Date 03/26/2018 [facility] SeriAl # SEP OFFICE Meter [facility] 03/13/2017 1:16 PM EDT Annalise Oneill MD POINT OF CARE TEST ORDERABLES Final Result [facility] documented in this encounter Visit Diagnoses Diagnosis Dizziness- Primary Dizziness and giddiness Type 2 diabetes mellitus without complication, unspecified dental manager insulin use status Current chronic use 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 Ventral hernia without obstruction or gangrene Ventral hernia, unspecified, without mention of obstruction or gangrene Chest pain at rest Chest pain, unspecified documented in this encounter Care Teams Gravity Meter Operator Relationship Specialty Start Date End Date Annalise Oneill MD [address] [place] [address] PCP - General Family Medicine 11/19/16 08/19/18 Garett Holt MD Internal Medicine-Gastroenterology 12/22/12 Ruiz Stokes MD [address] [place] [address] Internal Medicine-Cardiovascular Disease 07/25/14 Yenny Schwab MD [address] [facility] [address] [place] [address] Internal Medicine-Rheumatology 12/11/16 documented as of this encounter
--- OUTSIDE RECORDS SUMMARY | 2024-07-22 16:13 | XMS_ITS | Encounter Summary ---
Author Organization [place] [address] Care Team Providers Care Petroleum Refinery Worker Name Role Phone Garett Holt MD Unavailable [phone] Ruiz Stokes MD Unavailable [phone] Annalise Oneill MD Primary Care Provider [phone] Yenny Schwab MD Unavailable [phone] Reason for Visit * Reason Onset Date Comments Hospital Follow Up 03/14/2017 Encounter Details Date Type Department Care Team (Late st Contact Info) Description 03/14/2017 Patient Outreach [address] [address] Kelley Bryan LPN Hospital Follow Up Social History Tobacco Use Types Packs/Day Years [...] documented in this encounter Progress Notes * Bridget Gao, [facility] - 03/24/2017 4:56 PM EDT Initial Inpatient Discharge Follow Up 1. Contact made with patient in reference to follow up on recent discharge from the hospital for dizziness 2. After discussion, Ms. Jamil verbalizes NA understanding of discharge instructions. 3. Patient reports feeling NA today. 4. Medication list was reviewed. 5. Patient reports that she NA taking all medications as instructed. ?? If not, reason why? N/A 6. Patient does have a 72 hour hospital follow up scheduled. ?? If 'Yes', did patient attend appointment? N/A 7. Was patient instructed to make a follow up visit with a specialty office? No 8. Patient voices no complaints at this time. Contact information reviewed and patient agrees to call MA/MD or office with any questions or concerns. Please remind patient that if they have any emergent clinical issues, to please contact her primarycare office or physician contact lens blocker and cutter to ensure we meet her needs. PT HAS APPT 03/25 * Kelley Bryan LPN - 03/14/2017 4:06 PM EDT Patient not appropriate for [facility] to follow at this time. Last A1C was 5.9. documented in this encounter Plan of Treatment Upcoming Encounters Date Type Department Care Team (Late st Contact Info) Description 07/29/2024 9:00 AM EST Appointment [facility] [address] [place] [address] Jomar Kim MD [address] [place] [address] documented as of this encounter [...] on filedocumented in this encounter Care Teams Petroleum Refinery Worker Relationship Specialty Start Date End Date Annalise Oneill MD [address] [place] [address] [place] [address] PCP - General Family Medicine 11/19/16 08/19/18 Garett Holt MD Internal Medicine-Gastroenterology 12/22/12 Ruiz Stokes MD [address] [place] [address] Internal Medicine-Cardiovascular Disease 07/25/14 Yenny Schwab MD [address] [place] [address] Internal Medicine-Rheumatology 12/11/16 documented as of this encounter
--- OUTSIDE RECORDS SUMMARY | 2024-07-22 16:13 | XMS_ITS | Encounter Summary ---
Author Organization [place] [address] Care Team Providers Care Heel Nailing Machine Operator Name Role Phone Garett Holt MD Unavailable [phone] Ruiz Stokes MD Unavailable [phone] Annalise Oneill MD Primary Care Provider Yenny Schwab MD Unavailable [phone] Reason for Visit * Reason Onset Date Comments Appointment Needed 03/14/2017 72-hr hospita l follow up appt needed Encounter Details Date Type Department Care Team (Late st Contact Info) Description 03/14/2017 Telephone [facility] [address] [place] [address] Annalise Oneill MD [address] [place] [address] Appointment Needed (72-hr hospital follow up appt needed) Social History Tobacco Use Types Packs/Day Years [...] encounter Miscellaneous Notes * Telephone Encounter - Laura Alvarado RMA - 03/19/2017 4:08 PM EDT Apt made for 03/25/17 * Telephone Encounter - Lyssa Reyez RMA - 03/14/2017 10:58 AM EDT Called lm to call office to schedule hospital f/u appt. With Dr. Oneill * Telephone Encounter - Kathy Luciano - 03/14/2017 10:35 AM EDT Hospital called [facility] to schedule 72-hr follow up for patient being discharged today.There are no available designated slots for Friday, and patient would like to have an afternoon appt. Please advise patient. Thank you. documented in this encounter Plan of Treatment Upcoming Encounters Date Type Department Care Team (Late st Contact Info) Description 07/29/2024 9:00 AM EST Appointment [facility] [address] [place] [address] [address] Jomar Kim MD [address] [facility] [place] [address] documented as of this encounter Goals Goal Patient Goal Type Associated Problems Recent Progress Patient-Stated? Author Blood Pressure < 140/90 Blood Pressure 110/72(2023 2:44 PM EDT) No Rachel Rogers RMA BMI (Calculated) < 30 General 50.9(04/27/20 24 2:44 PM EDT) No Rachel Roegrs RMA Eat better, exercise, reach an ideal body weight General No Ni Clinton, RN Stay Tobacco Free Lifestyle On track( 021 10:23 AM EDT) No Wendy Espinoza LPN HEMOGLOBIN A1C < 7.0 Result Component 5.6( 4 3:04 PM EST) No Rachel Rogers RMA documented as of this encounter Visit Diagnoses Not on filedocumented in this encounter Care Teams Heel Nailing Machine Operator Relationship Specialty Start Date End Date Annalise Oneill MD [address] [place] [address] [place] [address] PCP - General Family Medicine 11/19/16 08/19/18 Garett Holt MD Internal Medicine-Gastroenterology 12/22/12 Ruiz Stokes MD [address] [place] [address] Internal Medicine-Cardiovascular Disease 07/25/14 Yenny Schwab MD [address] [place] [address] Internal Medicine-Rheumatology 12/11/16 documented as of this encounter
--- OUTSIDE RECORDS SUMMARY | 2024-07-22 16:13 | XMS_ITS | Encounter Summary ---
Author Organization [place] [address] Care Team Providers Care Transformer Tester Name Role Phone Garett Holt MD Unavailable [phone] Ruiz Stokes MD Unavailable [phone] Annalise Oneill MD Primary Care Provider [phone] Yenny Schwab MD Unavailable [phone] Encounter Details Date Type Department Care Team (Latest Contact Info) Description 05/08/2017 12:36 PM EDT - 05/08/2017 11:59 PM EDT Hospital Encounter [facility] [address] [place] [address] PMR (polymyalgia rheumatica) ([facility]) Discharge Disposition: Home or Self Care Social [...] Elle Wolf LPN documented in this encounter Medications at Time of Discharge CALCIUM ORAL Take 1 Tab by mouth daily. documented as of this encounter Discharge Disposition Disposition Code Departure Means Destination Home or Self Care documented in this encounter Plan of Treatment Upcoming Encounters Date Type Department Care Team (Late st Contact Info) Description 07/29/2024 9:00 AM EST Appointment [facility] [address] [place] [address] Jomar Kim MD [address] [place] [address] documented as of this encounter [...] Associated Diagnosis Comments SEDIMENTATION RATE AUTOMATED Routine 05/08/2017 12:37 PM EDT PMR (polymyalgia rheumatica) (HCC) C-REACTIVE PROTEIN Routine 05/08/2017 12 :37 PM EDT PMR (polymyalgia rheumatica) ([facility]) CREATINE KINASE Routine 05/08/2017 12:37 PM EDT PMR (polymyalgia rheumatica) ([facility]) documented in this encounter Results * (ABNORMAL) C-REACTIVE PROTEIN (05/08/2017 12:37 PM EDT) CRP 14.67(H) <=5.00 mg/L [facility] Blood specimen (specimen) UPPER LIMB STRUCTURE / Unknown 05/08/2017 12:37 PM EDT 05/08/2017 8:13 PM EDT Annalise Oneill MD CHEMISTRY ORDERABLES Final Re sult [facility] [address] [place] [address] * CREATINE KINASE (05/08/2017 12:37 PM EDT) CK 60 26 - 192 IU/L [facility] Blood specimen (specimen) UPPER LIMB STRUCTURE / Unknown 05/08/2017 12:37 PM EDT 05/08/2017 8:13 PM EDT us Annalise Oneill MD CHEMISTRY ORDERABLES Final Re sult Performing Organization Address City/[facility]/ZIP Co de Phone Number [facility] [address] [place] [address] * (ABNORMAL) SEDIMENTATION RATE AUTOMATED (05/08/2017 12:37 PM EDT) Sed Rate 88(H) 0 - 30 mm/hr [facility] Blood specimen (specimen) UPPER LIMB STRUCTURE / Unknown 05/08/2017 12:37 PM EDT 05/08/2017 8:13 PM EDT us Annalise Oneill MD HEMATOLOGY ORDERABLES Final R esult Performing Organization Address City/[facility] Co de Phone Number [facility] [address] [place] [address] documented in this encounter Visit Diagnoses Diagnosis PMR (polymyalgia rheumatica) (HCC) Polymyalgia rheumatica documented in this encounter Orders Lab Orders Without Results Count Last Ordered D ate First Ordered Date OP VENIPUNCTURE CHARGE 1 05/08/2017 documented in this encounter Care Teams Transformer Tester Relationship Specialty Start Date End Date Annalise Oneill MD [address] [place] [address] PCP - General Family Medicine 11/19/16 08/19/18 Garett Holt MD Internal Medicine-Gastroenterology 12/22/12 Ruiz Stokes MD [address] [place] [address] Internal Medicine-Cardiovascular Disease 07/25/14 Yenny Schwab MD [address] [facility] [address] [place], [place] [id number] Internal Medicine-Rheumatology 12/11/16 documented as of this encounter
--- OUTSIDE RECORDS SUMMARY | 2024-07-22 16:13 | XMS_ITS | Encounter Summary ---
Author Organization [place] [address] Care Team Providers Care Dispatcher Tugboat Name Role Phone Graett Holt MD Unavailable [phone] Ruiz Stokes MD Unavailable [phone] Annalise Oneill MD Primary Care Provider Yenny Schwab MD Unavailable [phone] Reason for Visit * Reason Onset Date Comments Medication Reaction 06/27/2017 Encounter Details Date Type Department Care Team (Late st Contact Info) Description 06/27/2017 Telephone [facility] [address] [place] [address] Luiza Santana RMA [address] [place] [address] Medication Reaction Social History Tobacco Use Types Packs/Day Years [...] DS) 800-160 mg Oral TabletIndications:C ellulitis of leg, left Take 1 Tab by mouth every 12 hours for 10 days. 20 Tab 06/27/2017 07/07/2017 documented in this encounter Miscellaneous Notes * Telephone Encounter - Luiza Santana RMA - 06/27/2017 2:22 PM EDT Was seen at the er was given clindamycin took was causing burning cold chills dry heave -per Dr Sunshine change to bactrim Bid x10 days -patient notified documented in this encounter Plan of Treatment Upcoming Encounters Date Type Department Care Team (Late st Contact Info) Description 07/29/2024 9:00 AM EST Appointment [facility] [address] [place] [id number] Jomar Kim MD [address] [place] [phone] documented as of this encounter Goals Goal [...] as of this encounter Visit Diagnoses Diagnosis Cellulitis of leg, left- Primary Cellulitis and abscess of leg, except foot documented in this encounter Discontinued Medications Medication Sig Discontinue Reason Start Date End Da te clindamycin (CLEOCIN) 300 mg Oral Capsule Take 1 Cap by mouth 3 times daily for 10 days. Allergic response 06/26/2017 06/27/2017 documented as of this encounter Care Teams Dispatcher Tugboat Relationship Specialty Start Date End Date Annalise Oneill MD [address] [place] [phone] PCP - General Family Medicine 11/19/16 08/19/18 Garett Holt MD Internal Medicine-Gastroenterology 12/22/12 Ruiz Stokes MD [address] [place] [address] Internal Medicine-Cardiovascular Disease 07/25/14 Yenny Schwab MD [address] [place] [id number] Internal Medicine-Rheumatology 12/11/16 documented as of this encounter
--- OUTSIDE RECORDS SUMMARY | 2024-07-22 16:13 | XMS_ITS | Encounter Summary ---
Author Organization [place] [address] Care Team Providers Care Combine Driver Name Role Phone Garett Holt MD Unavailable [phone] Ruiz Stokes MD Unavailable [phone] Annalise Oneill MD Primary Care Provider Yenny Schwab MD Unavailable [phone] Reason for Visit * Reason Comments Medication Refill Encounter Details Date Type Department Care Team (Late st Contact Info) Description 03/17/[address] [address] Annalise Oneill MD [address] [place] [id number] Medication Refill Social History Tobacco Use [...] 03/14/2017 10:26 AM EDElle Carter LPN * Is the person blind or [...] omeprazole (PRILOSEC) 20 mg Oral Capsule, Delayed Release(E.C.)Indic ations:Gastroesoph ageal reflux disease with esophagitis TAKE 1 CAPSULE BY MOUTH ONCE DAILY 90 Cap 03/17/2017 7 metFORMIN (GLUCOPHAGE) 500 mg Oral TabletIndications: Type 2 diabetes mellitus without complication, unspecified prison insulin use status TAKE 1 TABLET BY MOUTH ONCE DAILY IN THE MORNING WITH BREAKFAST 90 Tab 1 03/17/2017 7 documented in this encounter Plan of Treatment Upcoming Encounters Date Type Department Care Team (Late st Contact Info) Description 07/29/2024 9:00 AM EST Appointment [facility] [address] [place] [address] Jomar Kim MD [address] [place], [place] [id number] documented as of this encounter Goals Goal [...] Type 2 diabetes mellitus without complication, unspecified 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 Reorder 11/19/2016 03/17/2017 documented as of this encounter Care Teams Combine Driver Relationship Specialty Start Date End Date Annalise Oneill MD [address] [place] [address] PCP - General Family Medicine 11/19/16 08/19/18 Garett Holt MD Internal Medicine-Gastroenterology 12/22/12 Ruiz Stokes MD [address] [place] [address] Internal Medicine-Cardiovascular Disease 07/25/14 Yenny Schwab MD [address] [place] [address] Internal Medicine-Rheumatology 12/11/16 documented as of this encounter
--- OUTSIDE RECORDS SUMMARY | 2024-07-22 16:13 | XMS_ITS | Encounter Summary ---
Author Organization [place] [address] Care Team Providers Care Switch Inspector Name Role Phone Garett Holt MD Unavailable [phone] Ruiz Stokes MD Unavailable [phone] Annalise Oneill MD Primary Care Provider [phone] Yenny Schwab MD Unavailable [phone] Reason for Visit * Reason Onset Date Comments ED Follow-Up Call 06/27/2017 Encounter Details Date Type Department Care Team (Late st Contact Info) Description 06/27/2017 Patient Outreach [address] [address] Kelley Bryan LPN ED Follow-Up Call Social History Tobacco Use [...] in this encounter Progress Notes * Katherine Hallman - 06/27/2017 9:01 AM EDT ED Follow Up Regarding the most recent emergency room visit: Appropriate for follow up?: Yes Medical reason for visit: pain and swelling of left lower leg Are you feeling better?: No Were you able to, or did you try to, reach us prior to deciding to go to the ED?: No Were you aware that we always have a provider information technology director and offer eVisits?: Yes Reason you chose to go to ED as site for your medical care?: Severe Pain Did you get a prescription, or were your medications changed?: Yes Did you get it filled?: Yes If patient is unable to fill medications, please consider a social work consult if criteria met: Would you like to follow up with your PCP?: Yes Do you have any additional concerns that we have not discussed that I can help you with?: No * Kelley Bryan LPN - 06/27/2017 8:24 AM EDT Patient not appropriate for [facility] to follow at this time. documented in this encounter Plan of Treatment Upcoming Encounters Date Type Department Care Team (Late st Contact Info) Description 07/29/2024 9:00 AM EST Appointment [facility] [address] [place] [address] Jomar Kim MD [address] [place] [address] documented as of this encounter [...] on filedocumented in this encounter Care Teams Switch Inspector Relationship Specialty Start Date End Date Annalise Oneill MD [address] [place] [address] PCP - General Family Medicine 11/19/16 08/19/18 Garett Holt MD Internal Medicine-Gastroenterology 12/22/12 Ruiz Stokes MD [address] [place] [address] Internal Medicine-Cardiovascular Disease 07/25/14 Yenny Schwab MD [address] [address] Internal Medicine-Rheumatology 12/11/16 documented as of this encounter
--- OUTSIDE RECORDS SUMMARY | 2024-07-22 16:13 | XMS_ITS | Encounter Summary ---
Author Organization [place] [address] Care Team Providers Care Corrective Therapy Aide Name Role Phone Garett Holt MD Unavailable [phone] Ruiz Stokes MD Unavailable [phone] Annalise Oneill MD Primary Care Provider Yenny Schwab MD Unavailable [phone] Reason for Visit * Reason Comments Abdominal Pain C/o abd pain, fullne ss. Sent from Dr Oneill's office. Patient says her abd hernia is hurting her. Given ASA at office. * Auth/Cert/Inpt Specialty Diagnoses / Procedures Referred By Ron bansal Referred To Contact Diagnoses Dizziness Dizziness Referral ID Status Reason Start Date Expiration Date Visits Re quested Visits Authorized [id number] 1 1 Encounter Details Date Type Department Care Team (Late st Contact Info) Description 03/13/2017 2:24 PM EDT - 03/14/2017 1:20 PM EDT Emergency [id number] [address] [place] [address] Byron Roca MD Morgan, Kathie E, MD [address] [place] [address] [place] [address] Tio Lemos MD Dizziness (Primary Dx) Discharge Disposition: Home or Self [...] Sign Reading Time Taken Comments Blood Pressure 118/57 03/14/2017 7:57 AM EDT Pulse 72 03/14/2017 7:57 AM EDT Temperature 36.7 ??C (98 ??F) 03/14/2017 7:57 AM EDT Respiratory Rate 16 03/14/2017 7:57 AM EDT Oxygen Saturation 98% 03/14/2017 7:57 AM EDT Inhaled Oxygen Concentration - - Weight 120.3 kg (265 lb 5 oz) 03/13/2017 5:29 PM EDT Height 157.5 cm (5' 2 ) 03/13/2017 5:29 PM EDT Body Mass Index 48.53 03/13/2017 5:29 PM EDT documented in this encounter Functional [...] Elle Wolf LPN documented in this encounter Discharge Summaries * Tio Lemos MD - 03/14/2017 7:50 AM EDT [facility] Discharge Summary Patient Name: Alyssa Jamil : 1955 Admit Date: 03/13/2017 Discharge Date: 03/14/2017 Admitting Physician: Annalise Oneill MD Discharge Physician: Tio Lemos MD Reason for Hospitalization: Active Hospital Problems *Dizziness Type 2 diabetes mellitus without complication (HCC) Hospital Course/Significant Findings: Patient was admitted and observed. No cardiac irregularities were noted by monitor. Patient was rehydrated and ambulated with out dizziness. Close observation will be made to lisinopril 20 and any dizziness associated within the next 8 hours. Consideration for s plitting that dose 10 mg twice a day. Procedures Performed: None Consults: Discharge Exam: BP 123/64 (BP Location: Left arm, Patient Position: Semi Fowlers) Pulse 76 Temp 97.9 ??F (36.6 ??C) (Oral) Resp 16 Ht 5' 2 (1.575 m) Wt 265 lb 5 oz (120.3 kg) SpO2 98% ? No BMI 48.53 kg/m?? General Appearance: Alert, cooperative, no distress, appears stated age Head: Normocephalic, without obvious abnormality, atraumatic Eyes: PERRL, conjunctiva/corneas clear, EOM's intact, fundi benign, both eyes Ears: Normal TM's and external ear canals, both ears Nose: Nares normal, septum midline, mucosa normal, no drainage or sinus tenderness Throat: Lips, mucosa, and tongue normal; teeth and gums normal Neck: Supple, symmetrical, trachea midline, no adenopathy; thyroid: no enlargement/tenderness/nodules; no carotid bruit or JVD Back: Symmetric, no curvature, ROM normal, no CVA tenderness Lungs: Clear to auscultation bilaterally, respirations unlabored Chest Wall: No tenderness or deformity Heart: Regular rate and rhythm, S1 and S2 normal, no murmur, rub or gallop Abdomen: Soft, non-tender, bowel sounds active all four quadrants, no masses, no organomegaly Extremities: Extremities normal, atraumatic, no cyanosis or edema Pulses: 2+ and symmetric all extremities Skin: Skin color, texture, turgor normal, no rashes or lesions Lymph nodes: Cervical, supraclavicular, and axillary nodes normal Neurologic: CNII-XII intact, normal strength, sensation and reflexes Throughout,Chronic slow mentation. Discharge Diagnoses: Dizziness Condition at Discharge: good Disposition: Home Discharge Medications:: Medication List START taking these medications ciprofloxacin HCl 500 mg Tab Dose: 500 mg Qty: 14 Tab Refills: 0 Commonly known as: CIPRO 500 mg, Oral, EVERY 12 HOURS SCHEDULED miconazole 2 % Powd Qty: 30 g Refills: 0 Commonly known as: MICATIN Topical, EVERY 12 HOURS SCHEDULED CONTINUE taking these medications alendronate 70 mg Tab Dose: 70 mg Qty: 4 Tab Refills: 11 Commonly known as: FOSAMAX 70 mg, Oral, EVERY 7 DAYS, Take in AM with a glass of water and do not take anything else by mouth or lie down for the next 30 min. amLODIPine 10 mg Tab Dose: 10 mg Qty: 90 Tab Refills: 1 Commonly known as: NORVASC 10 mg, Oral, DAILY aspirin 81 mg Chew Dose: 81 mg Qty: 100 Tab Refills: 4 Commonly known as: aspirin 81 mg, Oral, DAILY atorvastatin 20 mg Tab Qty: 30 Tab Refills: 5 Comment: REQUESTING RX FOR 90 DAYS SUPPLY PLEASE FOR COPAY BENEFIT TO PATIENT ON INS. THANKS! Commonly known as: LIPITOR TAKE 1 TABLET BY MOUTH ONCE DAILY bisoprolol 5 mg Tab Dose: 5 mg Refills: 0 Commonly known as: ZEBETA Blood-Glucose Meter Kit Qty: 1 Kit Refills: 0 Please fill with what her ins will cover CALCIUM ORAL Refills: 0 cholecalciferol (vitamin D3) 1,000 unit Tab Dose: 1 Tab Refills: 0 docusate sodium 100 mg Cap Dose: 100 mg Qty: 180 Cap Refills: 1 Commonly known as: STOOL SOFTENER 100 mg, Oral, 2 TIMES DAILY fUROsemide 20 mg Tab Dose: 20 mg Refills: 0 Commonly known as: LASix lisinopril 20 mg Tab Qty: 90 Tab Refills: 5 Comment: 90 DAYS PLEASE. THANKS! Commonly known as: PRINIVIL;ZESTril TAKE 1 TABLET BY MOUTH ONCE DAILY loratadine 10 mg Tab Dose: 10 mg Qty: 30 Tab Refills: 2 Commonly known as: CLARITIN 10 mg, Oral, DAILY metFORMIN 500 mg Tab Dose: 500 mg Qty: 90 Tab Refills: 0 Commonly known as: GLUCOPHAGE 500 mg, Oral, DAILY, with breakfast nortriptyline 25 mg Cap Dose: 25 mg Qty: 30 Cap Refills: 2 Commonly known as: PAMELOR 25 mg, Oral, NIGHTLY omeprazole 20 mg Cpdr Dose: 20 mg Qty: 90 Cap Refills: 1 Commonly known as: PriLOSEC 20 mg, Oral, DAILY STOP taking these medications carvedilol 6.25 mg Tab Commonly known as: COREG ASK your doctor about these medications predniSONE 10 mg Tab Dose: 60 mg Qty: 180 Tab Refills: 1 Commonly known as: DELTASONE 60 mg, Oral, DAILY spironolactone 25 mg Tab Dose: 25 mg Refills: 0 Commonly known as: ALDACTONE Where to Get Your Medications These [facility] - [address] - [phone] [address], [place] [id number] ciprofloxacin HCl 500 mg Tab miconazole 2 % Powd Follow Up: Annalise Oneill MD [address] [facility] [place] [address] In 1 week Signed: Tio Lemos MD 03/14/2017 7:50 AM documented in this encounter Discharge Instructions * Discharge Instructions* Elle Almanza LPN - 03/14/2017 10:32 AM EDT [facility] Discharge Instructions - Diabetes Diabetes is a chronic progressive disease. This means that as you go through life, your diabetes will change and so will the ways it needs to be treated. Having regular visits with your physician is one important way to make sure you take control of your diabetes. Keep these important tips in mind when you meet with your physician: * Work toward keeping your blood sugar and HbA1c in the range your doctor recommends: ADA: 70-130 pre-meal, <180 2 hrs post-meal and Alc <7% [employer] D[employer] Operator: pre-meal <110, 2 hrs post-meal <140 & Alc <6.5% * Be physically active everyday * Enjoy healthy eating and remember to count your carbohydrates! * Take your diabetes medication as prescribed. * Test your blood sugar regularly. Vary testing time. * Recognize stress in your life and plan to do something you enjoy to take your mind off of it. * Keep blood pressure and cholesterol levels under control. * Check your feet daily. Call to schedule appointment with: Follow up with 03/17/17 If you take insulin or have complications from diabetes or other health problems, you will probablyneed to see your physician every 3 months. Ask your physician how often you should make office visits. You have diabetes. But, you also have the power to control it. Now, it???s up to you and your doctor to take control. * Attachments The following attachments cannot be sent through Care Everywhere. * CIPROFLOXACIN TABLETS ([place]) * VERTIGO, [id number] ([place]) * URINARY TRACT INFECTION, ADULT, [id number] ([place]) documented in this encounter Medications at Time of Discharge CALCIUM ORAL Take 1 Tab by mouth daily. ciprofloxacin HCl (CIPRO) 500 mg Oral Tablet Take 1 Tab by mouth every 12 hours for 7 days. 14 Tab 03/14/2017 7 miconazole (MICATIN) 2 % Top Powder Apply topically every 12 hours for 42 days. 30 g 03/14/2017 7 documented as of this encounter Ordered Prescriptions Prescription Sig Dispense Quantity Refills Last Filled Start Date End Date miconazole (MICATIN) 2 % Top Powder Apply topically every 12 hours for 42 days. 30 g 03/14/2017 7 ciprofloxacin HCl (CIPRO) 500 mg Oral Tablet Take 1 Tab by mouth every 12 hours for 7 days. 14 Tab 03/14/2017 7 documented in this encounter Discharge Disposition Disposition Code Departure Means Destination Home or Self Care Car Home documented in this encounter Progress Notes * Elle Almanza LPN - 03/14/2017 1:21 PM EDT Discharge Plan Reviewed discharge education on when to call MD or go to Er 911 Handout on vertigo and UTI Hold Aldactone And stop coreg Reviewed with handout New Rx Cipro UTI with side effects Rx Desenex powder for excoriation under abdominal folds Dr. Oneill office will call with appointment date and time Explained everything with sister and Patient Explained Dr. Lemos animation director this weekend if any questions * Danielle Forrest LPN - 03/13/2017 8:25 PM EDT Nabil from Pharmacy called Questioning zebeta and coreg Pt and family unable to tell staff what she is taking I take what ever they say for me to take Called placed to [facility] [phone] Pharmacy not open to verify medicine * Elle Almanza LPN - 03/13/2017 5:35 PM EDT Admit to Dr. Oneill care from Er. Dx Vertigo Placed on appeals manager NSR Transported by wheelchair to room 104 documented in this encounter H&P Notes * Tio Lemos MD - 03/14/2017 7:30 AM EDT Alyssa Jamil is an 61 y.o. female. Assessment: Subjective Subjective: Patient is a 61 y.o. female presents with Anusabrupt 2 hours ago. Onset of symptoms was abrupt 2 hours ago with unchanged course since that time. The pain is located denies. Patient describes the pain as none intermittent, occurring about every 1 hour hour and lasting 5minutes minutes perepisode and rated as severe. Pain has been associated with movement. P know where atient denies nausea or vomiting. Symptoms are aggravated by movement. Symptoms improve with sitting still. Past history includes diabetes. Previous studies include none. Assessment: Active Hospital Problems Diagnosis ??? *Dizziness Priority: High ??? Type 2 diabetes mellitus without complication (HCC) Priority: Medium Plan: IV fluids and observe. Watch for arrhythmia Past Medical History: Diagnosis Date ??? Anemia [...] BIOPSY ; Surgeon: Christa Chavez MD; Location: [facility] MAIN OR; Service: General ??? CARDIAC CATHETERIZATION 04/2015 ??? CHOLECYSTECTOMY 1989 ??? COLONOSCOPY ??? COLONOSCOPY 02/17/2013 Surgeon: Garett Holt MD; Location: [facility]; Service: ??? DENTAL SURGERY upper and lower teeth removed ??? UPPER GASTROINTESTINAL ENDOSCOPY ??? UPPER GASTROINTESTINAL ENDOSCOPY 02/17/2013 Surgeon: Garett Holt MD; Location: [facility]; Service: Prescriptions Prior to Admission Medication Sig Dispense Refill Last Dose ??? alendronate (FOSAMAX) 70 mg Oral Tablet Take 1 Tab by mouth every 7 days. Take in AM with a glass of water and do not take anything else by mouth or lie down for the next 30 min. 4 Tab 11 03/10/2017 at 0800 ??? amLODIPine (NORVASC) 10 mg Oral Tablet Take 1 Tab by mouth daily. 90 Tab 1 03/13/2017 at 1030 ??? Aspirin (ASPIRIN) 81 mg Take 1 Tab by mouth daily. 100 Tab 4 03/13/2017 at 1300 ??? atorvastatin (LIPITOR) 20 mg Oral Tablet TAKE 1 TABLET BY MOUTH ONCE DAILY 30 Tab 5 03/12/2017 [id number] ??? bisoprolol (ZEBETA) 5 mg Oral Tablet Take 5 mg by mouth daily. 03/13/2017 at 0900 ??? [facility] Please fill with what her ins will cover 1 Kit 0 03/13/2017 at Unknown time ??? CALCIUM ORAL Take by mouth daily. 03/13/2017 at 0900 ??? carvedilol (COREG) 6.25 mg Oral Tablet Take 1 Tab by mouth 2 times daily. with meals 60 Tab 6 03/13/2017 at 0900 ??? cholecalciferol, vitamin D3, 1,000 unit Oral Tablet Take 1 Tab by mouth daily. 03/13/2017 at 0900 ??? docusate sodium (STOOL SOFTENER) 100 mg Oral Capsule Take 1 Cap by mouth 2 times daily. 180 Cap1 03/13/2017 at 0900 ??? fUROsemide (LASIX) 20 mg Oral Tablet Take 20 mg by mouth every 12 hours. 03/13/2017 at 0900 ??? lisinopril (PRINIVIL;ZESTRIL) 20 mg Oral Tablet TAKE 1 TABLET BY MOUTH ONCE DAILY 90 Tab 5 03/13/2017 at 0900 ??? loratadine (CLARITIN) 10 mg Oral Tablet Take 1 Tab by mouth daily. 30 Tab 2 03/13/2017 at 0900 ??? metFORMIN (GLUCOPHAGE) 500 mg Oral Tablet Take 1 Tab by mouth daily. with breakfast 90 Tab 0 03/13/2017 at 0900 ??? nortriptyline (PAMELOR) 25 mg Oral Capsule Take 1 Cap by mouth nightly. 30 Cap 2 03/12/2017 at 2100 ??? omeprazole (PRILOSEC) 20 mg Oral Capsule, Delayed Release(E.C.) Take 1 Cap by mouth daily. 90 Cap 1 03/13/2017 at 0900 ??? predniSONE (DELTASONE) 10 mg Oral Tablet Take 6 Tabs by mouth daily. (Patient taking differently: Take 30 mg by mouth daily.) 180 Tab 1 03/13/2017 at 0900 ??? spironolactone (ALDACTONE) 25 mg Oral Tablet Take 25 mg by mouth 2 times daily. 03/13/2017 at 0900 Allergies Allergen Reactions ??? Amoxil [Amoxicillin] Hives ??? Clarithromycin hives ??? Naproxen Rash ??? Nexium [Esomeprazole Magnesium] Hives and Rash Blisters in Mouth Social History Substance Use Topics ??? Smoking status: Former Smoker Packs/day: 1.50 Years: 12.00 Types: Cigarettes Quit date: 09/08/1985 ??? Smokeless tobacco: Never Used Comment: quit 25 yrs ago ??? Alcohol use No Family History Problem Relation Age of Onset ??? Heart Disease Father ??? Cataracts Father ??? Diabetes Father ??? Cancer Maternal Grandmother ??? Colon Cancer Maternal Grandmother ??? Anesth Problems Neg Hx Review of Systems Pertinent items are noted in HPI. Objective Objective: Patient Vitals for the past 8 hrs: BP Pulse Resp SpO2 03/14/17 0601 123/64 76 16 98 % I/O last 3 completed shifts: In: 2487.6 [P.O.:480; I.V.:5; IV Piggyback:2002.6] Out: 1500 [Urine:1500] No intake/output data recorded. BP 123/64 (BP Location: Left arm, Patient Position: Semi Fowlers) Pulse 76 Temp 97.9 ??F (36.6 ??C) (Oral) Resp 16 Ht 5' 2 (1.575 m) Wt 265 lb 5 oz (120.3 kg) SpO2 98% ? No BMI 48.53 kg/m?? General Appearance: Alert, cooperative, no distress, appears stated age Head: Normocephalic, without obvious abnormality, atraumatic Eyes: PERRL, conjunctiva/corneas clear, EOM's intact, fundi benign, both eyes Ears: Normal TM's and external ear canals, both ears Nose: Nares normal, septum midline, mucosa normal, no drainage or sinus tenderness Throat: Lips, mucosa, and tongue normal; teeth and gums normal Neck: Supple, symmetrical, trachea midline, no adenopathy; thyroid: no enlargement/tenderness/nodules; no carotid bruit or JVD Back: Symmetric, no curvature, ROM normal, no CVA tenderness Lungs: Clear to auscultation bilaterally, respirations unlabored Chest Wall: No tenderness or deformity Heart: Regular rate and rhythm, S1 and S2 normal, no murmur, rub or gallop Abdomen: Soft, non-tender, bowel sounds active all four quadrants, no masses, no organomegaly Extremities: Extremities normal, atraumatic, no cyanosis or edema Pulses: 2+ and symmetric all extremities Skin: Skin color, texture, turgor normal, no rashes or lesions Lymph nodes: Cervical, supraclavicular, and axillary nodes normal Neurologic: CNII-XII intact, normal strength, sensation and reflexes Throughout,Chronic mental slowness. ECG: normal sinus rhythm, no blocks or conduction defects, no ischemic changes. Data Review CBC: Lab Results Component Value Date WBC 9.6 03/14/2017 RBC 3.61 (L) 03/14/2017 BMP: Lab Results Component Value Date GLUCOSE 91 03/13/2017 CO2 32 (H) 03/14/2017 CO2 25 05/17/2013 BUN 18 03/14/2017 CREATININE 0.81 03/14/2017 CALCIUM 9.6 03/14/2017 Dizziness Diabetes mellitus type 2 Plan: Observe for any arrhythmia IV rehydration and observe with movement. Subjective Past Medical History: Diagnosis Date ??? Anemia [...] OR BIPAP PER PATIENT ??? Ulcer (HCC) Allergies: Allergies Allergen Reactions ??? Amoxil [Amoxicillin] Hives ??? Clarithromycin hives ??? Naproxen Rash ??? Nexium [Esomeprazole Magnesium] Hives and Rash Blisters in Mouth Active Hospital Problems Diagnosis ??? *Dizziness Priority: High ??? Type 2 diabetes mellitus without complication (HCC) Priority: Medium Blood pressure 123/64, pulse 76, temperature 97.9 ??F (36.6 ??C), temperature source Oral, resp. rate 16, height 5' 2 (1.575 m), weight 265 lb 5 oz (120.3 kg), SpO2 98 %, not currently . HPI: Abdominal Pain Objective ROS: Review of Systems Gastrointestinal: Positive for abdominal pain. Exam: Physical Exam Tio Lemos MD 03/14/2017 documented in this encounter ED Notes * Bridget Yates RN - 03/13/2017 4:56 PM EDT Pt requested meal. Orders placed for 60 carb meal tray. Dietary to bring tray for pt. Will continueto monitor. * Byron Roca MD - 03/13/2017 2:14 PM EDT CHIEF COMPLAINT Chief Complaint Patient presents with ??? Abdominal Pain C/o abd pain, fullness. Sent from Dr Oneill's office. Patient says her abd hernia is hurting her. Given ASA at office. HPI Alyssa Jamil is a 61 y.o. female who presents With dizziness and weakness. Patient was sent from her primary physician's office for her shoes they're being evaluated for dizziness described as lightheaded and feeling like her legs were weak and cannot support her. She also complained of some mild vague abdominal pain has known ventral hernia no vomiting loss of appetite and diarrhea or fever. Per the primary physician who referred the patient she had an episode where while sitting up became briefly incoherent. No headache facial droop dysarthria or weakness in the upper extremities. Patient brought by ambulance for evaluation REVIEW OF SYSTEMS See HPI for further details. Review of systems negative for headache or vomiting, all else otherwise negative. PAST MEDICAL HISTORY Past Medical History: Diagnosis Date ??? Anemia on iron ??? Ankle swelling ??? Arthritis all over ??? Asthma ??? Cancer (HCC) OVARIAN ??? Clotting disorder (HCC) ??? Diabetes mellitus (HCC) 2014 borderline ??? Fibromyalgia ??? Heartburn nausea after eating ??? Hyperlipidemia ??? Hypertension ??? Neuromuscular disorder [...] BIOPSY ; Surgeon: Christa Chavez MD; Location: [facility] MAIN OR; Service: General ??? CARDIAC CATHETERIZATION 04/2015 ??? CHOLECYSTECTOMY 1989 ??? COLONOSCOPY ??? COLONOSCOPY 02/17/2013 Surgeon: Garett Holt MD; Location: [facility]; Service: ??? DENTAL SURGERY upper and lower teeth removed ??? UPPER GASTROINTESTINAL ENDOSCOPY ??? UPPER GASTROINTESTINAL ENDOSCOPY 02/17/2013 Surgeon: Garett Holt MD; Location: [facility]; Service: CURRENT MEDICATIONS Current Facility-Administered Medications: ??? 0.9 % NaCl infusion, , Intravenous, Continuous, Byron Roca MD ??? dextrose 50 % solution 25 mL, 25 mL, Intravenous, PRN, Byron Roca MD ??? glucagon (human recombinant) (GLUCAGEN) injection 1 mg, 1 mg, Intramuscular, PRN, Byron Roca MD ??? insulin aspart (NovoLOG) injection 1-10 Units, 1-10 Units, Subcutaneous, QID WMChanelle Daniel G, MD ALLERGIES Allergies Allergen Reactions ??? Amoxil [Amoxicillin] Hives ??? Clarithromycin hives ??? Naproxen Rash ??? Nexium [Esomeprazole Magnesium] Hives and Rash Blisters in Mouth PHYSICAL EXAM VITAL SIGNS: BP (!) 107/34 (BP Location: Left arm, Patient Position: Semi Fowlers) Pulse 74 Temp 98.1 ??F (36.7 ??C) (Oral) Resp 16 Wt 272 lb 4 oz (123.5 kg) SpO2 97% BMI 46.73 kg/m?? Constitutional: Well appearing in distress HENT: Normocephalic, Atraumatic, Bilateral external ears normal, Oropharynx moist, No oral exudates, Nose normal. Eyes: PERRLA, EOMI, Conjunctiva normal, No discharge. Neck: Normal range of motion, No tenderness, Supple, No stridor. Lymphatic: No lymphadenopathy noted. Cardiovascular: Normal heart rate, Normal rhythm, No murmurs, No rubs, No gallops. Thorax & Lungs: Normal breath sounds, No respiratory distress, No wheezing, No chest tenderness. Abdomen: Bowel sounds normal, Soft, No tenderness, No masses, No pulsatile masses. Small ventral hernia no significant tenderness no distention Skin: Warm, Dry, No erythema, No rash. Back: No tenderness, No CVA tenderness. Extremities: Intact distal pulses, No edema, No tenderness, No cyanosis, No clubbing. Musculoskeletal: Good range of motion in all major joints. No tenderness to palpation or major deformities noted. Neurologic: Alert & oriented x 3, Normal motor function, Normal sensory function, No focal deficits noted. Psychiatric: Affect normal, Judgment normal, Mood normal. EKG EKG Interpretation Interpreted by me Rhythm: normal sinus Rate: normal [place]: normal Ectopy: none Conduction: normal ST Segments: no acute change T Waves: no acute change Q Waves: none Clinical Impression: no acute changes and normal EKG RADIOLOGY/PROCEDURES Results for orders placed or performed during the hospital encounter of 03/13/17 CT HEAD WO CONTRAST Narrative CT HEAD WO CONTRAST 03/13/2017 3:48 PM HISTORY: -dizzy COMPARE: 07/27/2009. There are very mild age-appropriate atrophic changes. Ventricles are normal in position. No hemorrhage, edema, or mass effect. No mass or macroinfarct. No extra-axial hemorrhage identified. Impression No acute intracranial abnormality identified. CBC WITH AUTO DIFF Result Value Ref Range WBC 15.7 (H) 4.0 - 11.0 x10(3)/mcL RBC 3.72 (L) 3.80 - 5.10 x10(6)/mcL Hgb 11.1 (L) 12.0 - 15.6 gm/dL Hct 33.9 (L) 35.7 - 45.9 % MCV 91.0 82.5 - 99.8 fL MCH 29.8 27.0 - 34.3 pg MCHC 32.7 32.1 - 35.3 gm/dL RDW 18.5 (H) 11.5 - 15.0 % Platelet 189 144 - 423 x10(3)/mcL MPV 7.4 6.8 - 10.8 fL COMPREHENSIVE METABOLIC PANEL Result Value Ref Range Sodium 141 136 - 145 mmol/L Potassium 3.8 3.5 - 5.0 mmol/L Chloride 100 98 - 107 mmol/L Total CO2 29 22 - 29 mmol/L Anion Gap 12 7 - 16 mmol/L Calcium 9.9 8.8 - 10.2 mg/dL Glucose Lvl 98 82 - 100 mg/dL BUN 26 (H) 8 - 23 mg/dL Creatinine 0.78 0.51 - 1.30 mg/dL Albumin 3.9 3.2 - 4.6 gm/dL Total Protein 6.4 6.4 - 8.3 gm/dL Bili Total 0.2 0.1 - 1.3 mg/dL AST 12 <=40 IU/L ALT 25 <=41 IU/L Alk Phos 43 35 - 104 IU/L GFR Afr Am >60 GFR Non Afr Am >60 LIPASE LEVEL Result Value Ref Range Lipase Lvl 39 13 - 60 IU/L TROPONIN-T Result Value Ref Range Troponin-T <0.01 <=0.00 ng/mL TROPONIN-T Result Value Ref Range Troponin-T <0.01 <=0.00 ng/mL LACTIC ACID Result Value Ref Range Lactic Acid 0.8 0.5 - 2.2 mmol/L URINALYSIS Result Value Ref Range UA Color Yellow UA Appear Clear Clear UA Glucose Negative Negative UA Ketones Negative Negative UA Blood Trace-intact (A) Negative UA pH 6.5 5.0 - 8.0 UA Protein Negative Negative UA Urobilinogen 0.2 E.U./dL <=1 E.U./dL UA Nitrite Negative Negative UA Leuk Est Trace (A) Negative UA Spec Grav 1.015 1.001 - 1.035 UA WBC 0-2 0 - 4 /HPF UA RBC 0-2 0 - 3 /HPF UA Squam Epi Rare UA Mucus Trace UA Amorph Trace UA Bacteria 1+ DIFFERENTIAL Result Value Ref Range Neut Percent 67.4 % Lymph Percent 25.1 % Jack Percent 6.2 % Eos Percent 1.0 % Baso Percent 0.3 % Neut# 10.6 (H) 1.8 - 7.7 x10(3)/mcL Lymph# 3.9 0.6 - 4.8 x10(3)/mcL Jack# 1.0 0.0 - 1.3 x10(3)/mcL Eos# 0.2 0.0 - 0.5 x10(3)/mcL Baso# 0.0 0.0 - 0.2 x10(3)/mcL GLUCOSE METER POC Result Value Ref Range Glucose Lvl 92 70 - 100 mg/dL Sample Type Capillary Patient Status Non-Critical Patient EK EKG 12 LEAD Narrative NOTICE: Preliminary tracing available for review; Final Interpretation by physician to follow. Impression Stationary ECG Study [facility] Interpretive Statements SINUS RHYTHM LOW QRS VOLTAGE IN PRECORDIAL LEADS COURSE & MEDICAL DECISION MAKING Pertinent Labs & Imaging studies reviewed. (See chart for details) After evaluation patient given IV fluids monitored. Evaluation as above. Spoke with the primary physician who would like to observe the patient hospital for close cardiac monitoring. He'll also monitor blood sugars. I have discussed with the patient their clinical scenario, answered all questions and explained thetreatment plan and return precautions. If a controlled substance was prescribed to this patient it was deemed the patient had acute pain that required the prescribing of a controlled substance. MARIZA was reviewed and the risk and benefits of prescribing a controlled substance was discussed with the patient. FINAL IMPRESSION 1. Dizziness Condition at discharge Stable This chart was completed using voice recognition technology and may contain unintended errors Byron Roca MD 03/13/17 [id number] documented in this encounter Miscellaneous Notes * Plan of Care - Elle Almanza LPN - 03/14/2017 10:24 AM EDT Problem: Individualized Patient Preference/Goals - (ALWAYS ADD TO CARE PLANS) (always add to care plan) Goal: Care Team Goal Document what the Care Team goal is to help the patient meet their What's Most Important For You Today? DAILY goal This goal needs to be ANSWER DAILY - DO NOT COMPLETE Outcome: Completed Date Met: 03/14/17 Has cane and walker shower chair * Plan of Care - Elle Almanza LPN - 03/14/2017 10:23 AM EDT Problem: Safety: Fall Risk Goal: Patient will remain free of falls and injury Outcome: Completed Date Met: 03/14/17 No falls, non skid socks Problem: Pain Management Goal: The patient's stated pain goal will be reached and maintained. The patient's stated pain goal will be reached and maintained Outcome: Adequate for Discharge See a pain Doctor no pain medication ordered . Multiple pain site Right ribs,hip,ear head and Left eye MD aware of complains will discharge after lunch . Patient can take her medications for pain at home Problem: Knowledge Deficit Related to Disease Process/Treatment Goal: Patient/family will be knowledgeable of disease process and treatment Outcome: Completed Date Met: 03/14/17 Reviewed plan of care in discharge education Problem: Psycho/Social/Spiritual Goal: Patient will identify sources of support and strength Outcome: Completed Date Met: 03/14/17 Great family support Problem: Assess for New Problems - (ALWAYS ADD TO CARE PLAN) Assess patient for any new problem(s) to [...] with added problems when problem is identified Below is a list of the more [...] [69] Nutrition imbalance [91] Restraints [94] Outcome: Completed Date Met: 03/14/17 No new problems * Utilization Review Notes - Susan Smiley, MATT - 03/14/2017 8:08 AM EDT Note: Observation. ER admit to Med Surg. Per ER MD note: PT presents With dizziness and weakness . Plan discharge. documented in this encounter Plan of Treatment Upcoming Encounters Date Type Department Care Team (Late st Contact Info) Description 07/29/2024 9:00 AM EST Appointment [facility] [address] [facility] [place], [place] [id number] Jomar Kim MD [address] [place] [address] documented as of this encounter [...] Procedure Name Priority Date/Time Associated Diagnosis Comments GLUCOSE METER POC Routine 03/14/2017 11: 34 AM EDT GLUCOSE METER POC Routine 03/14/2017 7:5 1 AM EDT SCANNED RHYTHM STRIPS 03/14/2017 7:23 AM EDT HEMOGLOBIN A1C JORGE LUIS 03/14/2017 6:00 AM EDT DIFFERENTIAL Routine 03/14/2017 5:33 AM EDT CBC WITH DIFF Routine 03/14/2017 5:33 AM EDT BASIC METABOLIC PANEL Routine 03/14/2017 5:33 AM EDT SCANNED RHYTHM STRIPS 03/13/2017 11:44 PM EDT TROPONIN-T Timed 03/13/2017 9:08 PM EDT GLUCOSE METER POC Routine 03/13/2017 8:3 6 PM EDT SCANNED RHYTHM STRIPS 03/13/2017 5:47 PM EDT TROPONIN-T STAT 03/13/2017 5:09 PM EDT GLUCOSE METER POC Routine 03/13/2017 5:[address] HEAD WO CONTRAST STAT 03/13/2017 3 :48 PM EDT TROPONIN-T STAT 03/13/2017 3:04 PM EDT DIFFERENTIAL STAT 03/13/2017 3:04 PM EDT URINALYSIS STAT 03/13/2017 3:04 PM EDT CBC WITH DIFF STAT 03/13/2017 3:04 PM EDT LIPASE LEVEL STAT 03/13/2017 3:04 PM EDT LACTIC ACID STAT 03/13/2017 3:04 PM EDT COMPREHENSIVE METABOLIC PANEL STAT 03/13/2017 3:04 PM EDT EK EKG 12 LEAD STAT 03/13/2017 2:25 PM EDT documented in this encounter Results * (ABNORMAL) GLUCOSE METER POC (03/14/2017 11:34 AM EDT) Glucose Meter POC 110(H) 70 - 100 mg/dL [facility] POINT OF CARE LABORATORY Sample Type Capillary [facility] POIN T OF CARE LABORATORY Patient Status Non-Critical Patient [facility] POINT OF CARE LABORATORY Blood specimen (specimen) 03/14/2017 11:34 AM EDT 03/14/2017 11:34 AM EDT us Tio Lemos MD POINT OF CARE TEST ORDERA BLES Final Result Performing Organization Address [facility] Co de Phone Number [facility] POINT OF CARE LABORATORY [address] [facility] [place] [address] * (ABNORMAL) GLUCOSE METER POC (03/14/2017 7:51 AM EDT) Glucose Meter POC 108(H) 70 - 100 mg/dL [facility] POINT OF CARE LABORATORY Sample Type Capillary [facility] POIN T OF [facility] LABORATORY Patient Status Non-Critical Patient [facility] POINT OF CARE LABORATORY Blood specimen (specimen) 03/14/2017 7:51 AM EDT 03/14/2017 7:51 AM EDT us Tio Lemos MD POINT OF CARE TEST ORDERA BLES Final Result Performing Organization Address [facility] Co de Phone Number [facility] POINT OF [facility] LABORATORY [address] [facility] [place] [address] * SCANNED RHYTHM STRIPS (03/14/2017 7:23 AM EDT) Anatomical Region Laterality Modality Other 03/14/2017 7:23 AM EDT us Unknown Unknown IMG ECG ORDERABLES Final Result * HEMOGLOBIN A1C (03/14/2017 6:00 AM EDT) Hgb A1c 5.9 <=7.0 % [facility] LAB[facility] Comment: Reference Interval for Hgb A1c Hgb A1c ?Interpretation ? < 6.0 ?Non-Diabetic Range 6.0 - 7.0 ? ADA Therapeutic Target ??> 7.0 ? Action suggested Blood specimen (specimen) UPPER LIMB STRUCTURE / Unknown 03/14/2017 6:00 AM EDT 03/14/2017 2:11 PM EDT us Tio Lemos MD CHEMISTRY ORDERABLES Mercedes lind Result Performing Organization Address City/State/[facility] Co de Phone Number [facility] [address] [place] [address] * DIFFERENTIAL (03/14/2017 5:33 AM EDT) Neut Percent 63.6 % [facility] GRA NT LABORATORY Lymph Percent 27.6 % [facility] GR ANT LABORATORY Jack Percent 6.9 % [facility] NT LABORATORY Eos Percent 1.3 % [facility] GRAN T LABORATORY Baso Percent 0.6 % [facility] NT LABORATORY Neut# 6.1 1.8 - 7.7 x10(3)/[facility] LABORATORY Lymph# 2.6 0.6 - 4.8 x10(3)/[facility] LABORATORY Jack# 0.7 0.0 - 1.3 x10(3)/[facility] LABORATORY Eos# 0.1 0.0 - 0.5 x10(3)/[facility] LABORATORY Baso# 0.1 0.0 - 0.2 x10(3)/[facility] LABORATORY Blood specimen (specimen) 03/14/2017 5:33 AM EDT 03/14/2017 5:33 AM EDT us Viral Lombardi V, DO HEMATOLOGY ORDERABLES Final Re sult Performing Organization Address [facility] de Phone Number [facility] [address] [place] [address] * (ABNORMAL) BASIC METABOLIC PANEL (03/14/2017 5:33 AM EDT) Pathologist [facility] Sodium 142 136 - 145 mmol/L [facility] Potassium 3.9 3.5 - 5.0 mmol/L [facility] Chloride 102 98 - 107 mmol/L [facility] Total CO2 32(H) 22 - 29 mmol/L [facility] Anion Gap 8 7 - 16 mmol/L [facility] Calcium 9.6 8.8 - 10.2 mg/dL [facility] Glucose Lvl 101(H) 82 - 100 mg/dL [facility] BUN 18 8 - 23 mg/dL [facility] Creatinine 0.81 0.51 - 1.30 mg/dL [facility] GFR Afr Am >60 [facility] GFR Non Afr Am >60 [facility] LAB[facility] Blood specimen (specimen) UPPER LIMB STRUCTURE / Unknown 03/14/2017 5:33 AM EDT 03/14/2017 5:33 AM EDT Viral Lombardi V, DO CHEMISTRY ORDERABLES Edited Re sult - Final Performing Organization Address [facility] Co de Phone Number [facility] [address] [place] [address] * (ABNORMAL) CBC WITH AUTO DIFF (03/14/2017 5:33 AM EDT) [facility] WBC 9.6 4.0 - 11.0 x10(3)/mcL [facility] RBC 3.61(L) 3.80 - 5.10 x10(6)/mcL [facility] Hgb 10.8(L) 12.0 - 15.6 gm/dL [facility] Hct 32.7(L) 35.7 - 45.9 % [facility] MCV 90.5 82.5 - 99.8 fL [facility] MCH 30.0 27.0 - 34.3 pg [facility]ORAT[facility] MCHC 33.2 32.1 - 35.3 gm/dL [facility] RDW 18.4(H) 11.5 - 15.0 % [facility] Platelet 178 144 - 423 x10(3)/mcL [facility] MPV 7.5 6.8 - 10.8 fL [facility] Blood specimen (specimen) UPPER LIMB STRUCTURE / Unknown 03/14/2017 5:33 AM EDT 03/14/2017 5:33 AM EDT Viral Lombardi V, DO HEMATOLOGY ORDERABLES Final Re sult Performing Organization Address City/[facility]/ZIP Co de Phone Number [facility] [address] [place] [address] * SCANNED RHYTHM STRIPS (03/13/2017 11:44 PM EDT) Anatomical Region Laterality Modality Other 03/13/2017 11:4 4 PM EDT Unknown Unknown IMG ECG ORDERABLES Final Result * TROPONIN-T (03/13/2017 9:08 PM EDT) Troponin-T <0.01 <=0.00 ng/mL [facility] Comment: Values > or = 0.01 ng/mL have been shown to have prognostic value. Blood specimen (specimen) 03/13/2017 9:08 PM EDT 03/13/2017 9:08 PM EDT Byron Roca MD CHEMISTRY ORDERABLES Final R esult Performing Organization Address City/[facility]/ZIP Co de Phone Number [facility] [address] [place] [address] * (ABNORMAL) GLUCOSE METER POC (03/13/2017 8:36 PM EDT) Glucose Meter POC 103(H) 70 - 100 mg/dL [facility] POINT OF CARE LABORATORY Sample Type Capillary [facility] LABORAT[facility] Patient Status Non-Critical Patient [facility] POINT OF CARE LABORATORY Blood specimen (specimen) 03/13/2017 8:36 PM EDT 03/13/2017 8:36 PM EDT us Annalise Oneill MD POINT OF CARE TEST ORDERABLES Final Result Performing Organization Address City/[facility]/ZIP Co de Phone Number [facility] POINT OF CARE LABORATORY [address] [facility] [place] [address] * SCANNED RHYTHM STRIPS (03/13/2017 5:47 PM EDT) Anatomical Region Laterality Modality Other 03/13/2017 5:47 PM EDT us Unknown Unknown IMG ECG ORDERABLES Final Result * TROPONIN-T (03/13/2017 5:09 PM EDT) Troponin-T <0.01 <=0.00 ng/mL [facility] Comment: Values > or = 0.01 ng/mL have been shown to have prognostic value. Blood specimen (specimen) 03/13/2017 5:09 PM EDT 03/13/2017 5:09 PM EDT Byron Roca MD CHEMISTRY ORDERABLES Final R esult Performing Organization Address City/[facility]/ZIP Co de Phone Number [facility] [address] [place] [address] * GLUCOSE METER POC (03/13/2017 5:01 PM EDT) Glucose Meter POC 92 70 - 100 mg/dL [facility] POINT OF CARE LABORATORY Sample Type Capillary [facility] LAB[facility] Patient Status Non-Critical Patient [facility] POINT OF CARE LABORATORY Blood specimen (specimen) 03/13/2017 5:01 PM EDT 03/13/2017 5:01 PM EDT Byron Roca MD POINT OF CARE TEST ORDERABLE S Final Result Performing Organization Address City/[facility]/ZIP Co de Phone Number [facility] POINT OF CARE LABORATORY [address] [facility] [place] [address] * CT HEAD WO CONTRAST (03/13/2017 3:48 PM EDT) Anatomical Region Laterality Modality Head Computed Tomogra phy 03/13/2017 3:48 PM EDT Impressions 03/13/2017 4:19 PM EDT No acute intracranial abnormality identified. Narrative 03/13/2017 4:[address] HEAD WO CONTRAST ?? 03/13/2017 3:48 PM HISTORY: ??-dizzy ?? COMPARE: 07/27/2009. There are very mild age-appropriate atrophic changes. Ventricles are normal in position. No hemorrhage, edema, or mass effect. No mass or macroinfarct. ??No extra-axial hemorrhage identified. Procedure Note Heriberto Ritter MD - 03/13/2017 CT HEAD WO CONTRAST 03/13/2017 3:48 PM HISTORY: -dizzy COMPARE: 07/27/2009. There are very mild age-appropriate atrophic changes. Ventricles arenormal in position. No hemorrhage, edema, or mass effect. No mass or macroinfarct.No extra-axial hemorrhage identified. IMPRESSION: No acute intracranial abnormality identified. us Byron Roca MD IMG CT ORDERABLES Final Resu lt * (ABNORMAL) DIFFERENTIAL (03/13/2017 3:04 PM EDT) Neut Percent 67.4 % [facility] GRA NT LABORATORY Lymph Percent 25.1 % [facility] GR ANT LABORATORY Jack Percent 6.2 % [facility] GRA NT LABORATORY Eos Percent 1.0 % [facility] GRAN T LABORATORY Baso Percent 0.3 % [facility] GRA NT LABORATORY Neut# 10.6(H) 1.8 - 7.7 x10(3)/[facility] LABORATORY Lymph# 3.9 0.6 - 4.8 x10(3)/[facility] LABORATORY Jack# 1.0 0.0 - 1.3 x10(3)/[facility] LABORATORY Eos# 0.2 0.0 - 0.5 x10(3)/[facility] LABORATORY Baso# 0.0 0.0 - 0.2 x10(3)/[facility] LABORATORY Blood specimen (specimen) 03/13/2017 3:04 PM EDT 03/13/2017 3:04 PM EDT Byron Roca MD HEMATOLOGY ORDERABLES Final Result Performing Organization Address [facility] Co de Phone Number [facility] [address] [place] [address] * (ABNORMAL) URINALYSIS (03/13/2017 3:04 PM EDT) UA Color Yellow [facility] UA Appear Clear Clear [facility] UA Glucose Negative Negative [facility] UA Ketones Negative Negative [facility] UA Blood Trace-intac t(A) Negative [facility] UA pH 6.5 5.0 - 8.0 [facility] Comment:Reference range dano d for random specimens only. UA Protein Negative Negative [facility] UA Urobilinogen 0.2 E.U./dL <=1 E.U./dL [facility] UA Nitrite Negative Negative [facility] UA Leuk Est Trace(A) Negative [facility] GR[facility] T LABORATORY UA Spec Grav 1.015 1.001 - 1.035 [facility] Comment:Reference range dano d for random specimens only. UA WBC 0-2 0 - 4 /HPF [facility] UA RBC 0-2 0 - 3 /HPF [facility] UA Squam Epi Rare [facility] GRA NT LABORATORY UA Mucus Trace [facility] UA Amorph Trace [facility] UA Bacteria 1+ [facility] LABORATORY Urine specimen (specimen) URINE SPECIMEN COLLECTION, CLEAN CATCH / Unknown 03/13/2017 3:04 PM EDT 03/13/2017 3:04 PM EDT us Byron Roca MD URINE ORDERABLES Final Resul t Performing Organization Address [facility] Co de Phone Number [facility] [address] [place] [address] * LACTIC ACID (03/13/2017 3:04 PM EDT) Lactic Acid 0.8 0.5 - 2.2 mmol/L [facility] Blood specimen (specimen) UPPER LIMB STRUCTURE / Unknown 03/13/2017 3:04 PM EDT 03/13/2017 3:04 PM EDT Byron Roca MD CHEMISTRY ORDERABLES Final R esult Performing Organization Address [facility] Co de Phone Number [facility] [address] [place] [address] * TROPONIN-T (03/13/2017 3:04 PM EDT) Pathologist [facility] Troponin-T <0.01 <=0.00 ng/mL [facility] Comment: Values > or = 0.01 ng/mL have been shown to have prognostic value. Blood specimen (specimen) 03/13/2017 3:04 PM EDT 03/13/2017 3:04 PM EDT Byron Roca MD CHEMISTRY ORDERABLES Final R [facility] Performing Organization Address [facility] de Phone Number [facility] [address] [place] [address] * LIPASE LEVEL (03/13/2017 3:04 PM EDT) [facility] Lipase Lvl 39 13 - 60 IU/L [facility] Blood specimen (specimen) UPPER LIMB STRUCTURE / Unknown 03/13/2017 3:04 PM EDT 03/13/2017 3:04 PM EDT Byron Roca MD CHEMISTRY ORDERABLES Final R [facility] Performing Organization Address [facility] de Phone Number [facility] [address] [place] [address] * (ABNORMAL) COMPREHENSIVE METABOLIC PANEL (03/13/2017 3:04 PM EDT) Pathologist [facility] Sodium 141 136 - 145 mmol/L [facility] Potassium 3.8 3.5 - 5.0 mmol/L [facility] Chloride 100 98 - 107 mmol/L [facility] Total CO2 29 22 - 29 mmol/L [facility] Anion Gap 12 7 - 16 mmol/L [facility] Calcium 9.9 8.8 - 10.2 mg/dL [facility] Glucose Lvl 98 82 - 100 mg/dL [facility] BUN 26(H) 8 - 23 mg/dL [facility] Creatinine 0.78 0.51 - 1.30 mg/dL [facility] Albumin 3.9 3.2 - 4.6 gm/dL [facility] Total Protein 6.4 6.4 - 8.3 gm/dL [facility] Bili Total 0.2 0.1 - 1.3 mg/dL [facility] AST 12 <=40 IU/L [facility] ALT 25 <=41 IU/L [facility] Alk Phos 43 35 - 104 IU/L [facility] GFR Afr Am >60 [facility] GFR Non Afr Am >60 [facility] Blood specimen (specimen) UPPER LIMB STRUCTURE / Unknown 03/13/2017 3:04 PM EDT 03/13/2017 3:04 PM EDT us Byron Roca MD CHEMISTRY ORDERABLES Edited Result - Final [facility] [address] [place] [address] * (ABNORMAL) CBC WITH AUTO DIFF (03/13/2017 3:04 PM EDT) WBC 15.7(H) 4.0 - 11.0 x10(3)/mcL [facility] RBC 3.72(L) 3.80 - 5.10 x10(6)/mcL [facility] Hgb 11.1(L) 12.0 - 15.6 gm/dL [facility] Hct 33.9(L) 35.7 - 45.9 % [facility] MCV 91.0 82.5 - 99.8 fL [facility] MCH 29.8 27.0 - 34.3 pg [facility] MCHC 32.7 32.1 - 35.3 gm/dL [facility] RDW 18.5(H) 11.5 - 15.0 % [facility] Platelet 189 144 - 423 x10(3)/mcL [facility] MPV 7.4 6.8 - 10.8 fL [facility] Blood specimen (specimen) UPPER LIMB STRUCTURE / Unknown 03/13/2017 3:04 PM EDT 03/13/2017 3:04 PM EDT us Byron Roca MD HEMATOLOGY ORDERABLES Final Result [facility] [address] [place] [address] * EK EKG 12 LEAD (03/13/2017 2:25 PM EDT) Anatomical Region Laterality Modality Electrocardiogra phy 03/13/2017 2:33 PM EDT Impressions 03/13/2017 10:56 PM EDT ? Stationary ECG Study ?[employer] ? Interpretive Statements ? SINUS RHYTHM LOW QRS VOLTAGE IN PRECORDIAL LEADS Electronically Signed On 03-13-2017 22:56:47 EDT by Huey Mendoza MD Narrative Procedure Note Huey Mendoza MD - 03/13/[address] IM[address] ECG Study [facility] Interpretive Statements SINUS RHYTHM LOW QRS VOLTAGE IN PRECORDIAL LEADS Electronically Signed On 03-13-2017 22:56:47 EDT by Huey Mendoza MD us Byron Roca MD IMG ECG ORDERABLES Final Res ult documented in this encounter Visit Diagnoses Diagnosis Dizziness- Primary Dizziness and giddiness Dizziness Dizziness and giddiness Type 2 diabetes mellitus without complication (HCC) documented in this encounter Admitting Diagnoses Diagnosis Dizziness Dizziness and giddiness documented in this encounter Administered Medications Inactive Administered Medications - up to 1 most recent administrations Medication Order MAR Action Action Date Dose Rate Site 0.9 % NaCl infusion Intravenous, at 100 mL/hr, CONTINUOUS, Starting on Fri03/13/17 at 1730, Until Fri03/14/17 at 0729 Rate/Dose Verify 03/14/2017 5:53 AM EDT 100 mL/hr acetaminophen (OFIRMEV) infusion 1,000 mg 1,000 mg, Intravenous, EVERY 6 HOURS PRN, Starting on Fri03/13/17 at 1902, Until Fri03/14/17 at 0729, Pain, Administer over 15 Minutes, Maximum adult dose of acetaminophen is 4000 mg from all sources in 24 hours. IV Started 03/13/2017 7:44 PM EDT 1,000 mg 400 mL/hr aspirin chewable tablet 81 mg 81 mg, Oral, DAILY, First dose on Fri03/14/17 at 0900, Until Discontinued Given 03/14/2017 8:13 AM EDT 81 mg atorvastatin (LIPITOR) tablet 20 mg 20 mg, Oral, NIGHTLY, First dose on Fri03/13/17 at 2100, Until Discontinued Given 03/13/2017 8:39 PM EDT 20 mg bisoprolol (ZEBETA) tablet 5 mg 5 mg, Oral, DAILY, First dose on Fri03/14/17 at 0900, Until Discontinued Given 03/14/2017 8:12 AM EDT 5 mg ciprofloxacin HCl (CIPRO) tablet 500 mg 500 mg, Oral, EVERY 12 HOURS SCHEDULED (2 times per day), 14 doses, First dose on Fri03/14/17 at 0900, Last dose on Fri03/20/17 at 2100, Hold tube feeding 1 hour before/after administration. Given 03/14/2017 8:12 AM EDT 500 mg ciprofloxacin in 5 % dextrose (CIPRO) IVPB 400 mg 400 mg, Intravenous, EVERY 12 HOURS SCHEDULED (2 times per day), 14 doses, First dose on Fri03/13/17 at 2100, Last dose on Fri03/20/17 at 0900, Administer over 60 Minutes IV Started 03/13/2017 9:14 PM EDT 400 mg 200 mL/hr docusate sodium (COLACE) capsule 100 mg 100 mg, Oral, 2 TIMES DAILY, First dose on Fri03/13/17 at 2100, Until Discontinued, Do not crush or chew. Given 03/14/2017 8:12 AM EDT 100 mg fUROsemide (LASix) tablet 20 mg 20 mg, Oral, TWICE DAILY DIURETIC, First dose on Fri03/13/17 at 2015, Until Discontinued Given 03/14/2017 8:12 AM EDT 20 mg glucagon (human recombinant) (GLUCAGEN) injection 1 mg 1 mg, Intramuscular, PRN, Starting on Fri03/13/17 at 1723, Until Fri03/14/17 at 1801, Low blood sugar, If FSBS <70 mg/dL, patient cannot take orally, and without IV access, If patient is without IV access, give Glucagon 1 mg Intramuscularly, insert IV and call physician. metFORMIN (GLUCOPHAGE) tablet 500 mg 500 mg, Oral, DAILY WITH MEAL, First dose on Fri03/14/17 at 0800, Until Discontinued, For procedures using IV iodinated contrast: hold metformin at the time of or prior to the procedure, and for 48 hours after. Inform MD Given 03/14/2017 8:13 AM EDT 500 mg miconazole (MICATIN) 2 % powder Topical, EVERY 12 HOURS SCHEDULED (2 times per day), 84 doses, First dose on Fri03/13/17 at 2100, Last dose on Fri04/24/17 at 0900, Application site: abd folds Given 03/14/2017 8:10 AM EDT miconazole (MICATIN) 2 % powder Topical, PRN, Starting on Fri03/13/17 at 1841, Until Fri03/14/17 at 1801, Wound Care, Application site: abd folds nortriptyline (PAMELOR) capsule 25 mg 25 mg, Oral, NIGHTLY, First dose on Fri03/13/17 at 2100, Until Discontinued Given 03/13/2017 8:39 PM EDT 25 mg pantoprazole (PROTONIX) tablet 40 mg 40 mg, Oral, DAILY, First dose on Fri03/14/17 at 0900, Until Discontinued, Therapeutic Interchange for omeprazole (Prilosec) 20mg cap daily Given 03/14/2017 8:13 AM EDT 40 mg sodium chloride 0.9 % 500 mL IV bolus Intravenous, ONCE, 1 dose, On Fri03/13/17 at 1445, at 491.8 mL/hr IV Started 03/13/2017 3:01 PM EDT 491.8 mL/hr documented in this encounter Discontinued Medications Medication Sig Discontinue Reason Start Date End Da te carvedilol (COREG) 6.25 mg Oral Tablet Take 1 Tab by mouth 2 times daily. with meals Stop Taking at Discharge 04/09/2016 03/14/2017 documented as of this encounter Active and Recently Administered Medications Times are shown in EDT. Scheduled Medication Order 03/12/2017 03/13/2017 03/14/2017 aspirin chewable tablet 81 mg 81 mg, Oral, DAILY, First dose on Fri03/14/17 at 0900, Until Discontinued 812 (Given - Provid er: Elle Almanza LPN) atorvastatin (LIPITOR) tablet 20 mg 20 mg, Oral, NIGHTLY, First dose on Fri03/13/17 at 2100, Until Discontinued 2038 (Given - Provider: Danielle Forrest LPN) bisoprolol (ZEBETA) tablet 5 mg 5 mg, Oral, DAILY, First dose on Fri03/14/17 at 0900, Until Discontinued 811 (Given - Provid er: Elle Almanza LPN) ciprofloxacin HCl (CIPRO) tablet 500 mg 500 mg, Oral, EVERY 12 HOURS SCHEDULED (2 times per day), 14 doses, First dose on Fri03/14/17 at 0900, Last dose on Fri03/20/17 at 2100, Hold tube feeding 1 hour before/after administration. 811 (Given - Provid er: Elle Almanza LPN) ciprofloxacin in 5 % dextrose (CIPRO) IVPB 400 mg (CANCELED) 400 mg, Intravenous, EVERY 12 HOURS SCHEDULED (2 times per day), 14 doses, First dose on Fri03/13/17 at 2100, Last dose on Fri03/20/17 at 0900, Administer over 60 Minutes 2113 (IV Started - Provider: Danielle Forrest LPN)2213 (Stopped - Provider: Danielle Forrest LPN) docusate sodium (COLACE) capsule 100 mg 100 mg, Oral, 2 TIMES DAILY, First dose on Fri03/13/17 at 2099, Until Discontinued, Do not crush or chew. 2038 (Given - Provider: Danielle Forrest LPN) 811 (Given - Provider: Elle Almanza LPN) fUROsemide (LASix) tablet 20 mg 20 mg, Oral, TWICE DAILY DIURETIC, First dose on Fri03/13/17 at 2015, Until Discontinued 2038 (Given - Provider: Danielle Forrest LPN) 811 (Given - Provider: Elle Almanza LPN) insulin aspart (NovoLOG) injection 1-10 Units 1-10 Units, Subcutaneous, 4 TIMES DAILY WITH MEALS, 4 doses, First dose on Fri03/13/17 at 1800, Last dose on Fri03/14/17 at 1200, Interim Insulin FSBS Additional Insulin NPO/Bedtime 150-200 2 units 1 unit 201-250 4 units 2 units 251-300 6 units 3 units 301-350 8 units 4 units Greater than 350__10 units call MD __5 units call MD Notify MD if patient's blood sugar is below 70 or over 350 Waste Sort Code = BKC 1800 (Not Given - Provider: Eunice Mayer RN - Reason: Order parameters not met)2099 (Not Given - Provider: Danielle Forrest LPN - Reason: Order parameters not met) 812 (Not Given - Provider: Elle Almanza LPN - Reason: Medication not available)1200 (Not Given - Provider: Elle Almanza LPN - Reason: Order parameters not met) metFORMIN (GLUCOPHAGE) tablet 500 mg 500 mg, Oral, DAILY WITH MEAL, First dose on Fri03/14/17 at 0800, Until Discontinued, For procedures using IV iodinated contrast: hold metformin at the time of or prior to the procedure, and for 48 hours after. Inform MD 812 (Given - Provid er: Elle Almanza LPN) miconazole (MICATIN) 2 % powder Topical, EVERY 12 HOURS SCHEDULED (2 times per day), 84 doses, First dose on Cyn 03/13/17 at 2100, Last dose on Fri04/24/17 at 0900, Application site: [facility] 2012 (Given - Provider: Danielle Forrest LPN) 809 (Given - Provider: Elle Almanza LPN) nortriptyline (PAMELOR) capsule 25 mg 25 mg, Oral, NIGHTLY, First dose on Cyn 03/13/17 at 2100, Until Discontinued 2038 (Given - Provider: Danielle Forrest LPN) pantoprazole (PROTONIX) tablet 40 mg 40 mg, Oral, DAILY, First dose on Fri03/14/17 at 0900, Until Discontinued, Therapeutic Interchange for omeprazole (Prilosec) 20mg cap daily 812 (Given - Provid er: Elle Almanza LPN) sodium chloride 0.9 % 500 mL IV bolus (COMPLETED) Intravenous, ONCE, 1 dose, On Cyn 03/13/17 at 1445, at 491.8 mL/hr 1501 (IV Started - Provider: Adelina Bonilla RN)1640 (Stopped - Provider: Bridget Yates RN) Continuous Medication Order 03/12/2017 03/13/2017 03/14/2017 0.9 % NaCl infusion (CANCELED) Intravenous, at 100 mL/hr, CONTINUOUS, Starting on Cyn 03/13/17 at 1730, Until Fri03/14/17 at 0729 1811 (New Bag - Provider: Shellie Ruano RN)1836 (Rate/Dose Verify - Provider: Elle Almanza LPN)2028 (Rate/Dose Verify - Provider: Danielle Forrest LPN) 0354 (New Bag - Provider: Danielle Forrest LPN)0553 (Rate/Dose Verify - Provider: Danielle Forrest LPN)0814 (Stopped - Provider: Elle Almanza LPN) PRN Medication Order 03/12/2017 03/13/2017 03/14/2017 acetaminophen (OFIRMEV) infusion 1,000 mg (CANCELED) 1,000 mg, Intravenous, EVERY 6 HOURS PRN, Starting on Cyn 03/13/17 at 1902, Until Fri03/14/17 at 0729, Pain, Administer over 15 Minutes, Maximum adult dose of acetaminophen is 4000 mg from all sources in 24 hours. 1943 (IV Started - Provider: Elle Almanza LPN)1958 (Stopped - Provider: Danielle Forrest LPN) glucagon (human recombinant) (GLUCAGEN) injection 1 mg 1 mg, Intramuscular, PRN, Starting on Cyn 03/13/17 at 1723, Until Fri03/14/17 at 1801, Low blood sugar, If FSBS <70 mg/dL, patient cannot take orally, and without IV access, If patient is without IV access, give Glucagon 1 mg Intramuscularly, insert IV and call physician. miconazole (MICATIN) 2 % powder Topical, PRN, Starting on Cyn 03/13/17 at 1841, Until Fri03/14/17 at 1801, Wound Care, Application site: abd folds documented in this encounter Orders Medications Ordered That Edwin ht Not Have Been Administered Count Last Ordered Date First Ordered Date carvedilol (COREG) tablet 6.25 mg 1 017 dextrose 50 % solution 25 mL 1 03/13/2017 glucagon (human recombinant) (GLUCAGEN) injection 1 mg 1 03/13/2017 insulin aspart (NovoLOG) inj ection 1-10 Units 1 03/13/2017 miconazole (MICATIN) 2 % powder 3 7 Nursing Count Last Ordered Date First Orde red Date ADMISSION 03/13/2017 Transfer Count Last Ordered Date First Orde red Date BED REQUEST 1 03/13/2017 documented in this encounter Care Teams Corrective Therapy Aide Relationship Specialty Start Date End Date Annalise Oneill MD [facility] [place] [place] [id number] PCP - General Family Medicine 11/19/16 08/19/18 Garett Holt MD Internal Medicine-Gastroenterology 12/22/12 Ruiz Stokes MD [address] [place] [address] Internal Medicine-Cardiovascular Disease 07/25/14 Yenny Schwab MD [address] [facility] [address] [place] [id number] Internal Medicine-Rheumatology 12/11/16 documented as of this encounter
--- OUTSIDE RECORDS SUMMARY | 2024-07-22 16:13 | XMS_ITS | Encounter Summary ---
[place] [address] Care Team Providers Care Assembler Bonding Name Role Phone Garett Holt MD Unavailable [phone] Ruiz Stokes MD Unavailable [phone] Annalise Oneill MD Primary Care Provider Yenny Schwab MD Unavailable [phone] Reason for Visit * Reason Comments ED Follow-up pt was seen in ER fo r cellulitis, she was given clindamycin but was allergic, med was changed, she still c/o being swollen in L leg. Encounter Details Date Type Department Care Team (Late st Contact Info) Description 07/01/2017 10:00 AM EDT Office Visit [facility] [address] [place] [address] Annalise Oneill MD [address] [place] [address] Cellulitis of leg, left (Primary Dx); Type 2 diabetes mellitus without complication, without long-term current use of insulin (HCC); Temporal arteritis (HCC) Social History Tobacco Use [...] Sign Reading Time Taken Comments Blood Pressure 108/70 07/01/2017 10:16 AM EDT Pulse 72 07/01/2017 10:16 AM EDT Temperature 37 ??C (98.6 ??F) 07/01/2017 10: 16 AM EDT Respiratory Rate 12 07/01/2017 10:1 6 AM EDT Oxygen Saturation - - Inhaled Oxygen Concentration - - Weight 120.1 kg (264 lb 12.8 oz) 2016 10:16 AM EDT Height 152.4 cm (5') 07/01/2017 10:16 AM EDT Body Mass Index 51.72 07/01/2017 10:16 AM EDT documented in this encounter Functional [...] Progress Notes * Annalise Oneill MD - 07/01/2017 10:00 AM EDT Subjective Chief Complaint Patient presents with ??? ED Follow-up pt was seen in ER for cellulitis, she was given clindamycin but was allergic, med was changed, she still c/o being swollen in L leg. On bactrim Venous doppler negative for dvt Still with swelling and redness. Blood sugars tested once daily This morning 148 No hypoglycemic episodes Refuses to return to rheumatology for treatment of temp arteritis because did not like steroids. No fever or chills. No shortness of breath. Review of Systems Constitutional: Negative for activity change, appetite change, fatigue and fever. Respiratory: Negative for chest tightness, shortness of breath and wheezing. Cardiovascular: Positive for leg swelling. Negative for chest pain and palpitations. Neurological: Negative for dizziness and headaches. Objective BP 108/70 Pulse 72 Temp 98.6 ??F (37 ??C) (Temporal) Resp 12 Ht 5' (1.524 m) Wt 264 lb 12.8 oz (120.1 kg) BMI 51.72 kg/m?? Physical Exam Constitutional: She is oriented [...] is no tenderness. Musculoskeletal: She exhibits edema (2+ pitting edema left lower leg with mild increased warmth anderythema). Neurological: She is alert and oriented to person, place, and time. She has normal reflexes. Skin: Skin is warm and dry. Psychiatric: She has a normal mood and affect. Judgment normal. Vitals reviewed. Diagnoses and all orders for this visit: 1. Cellulitis of leg, left Comments: stable. recommend compression. continue bactrim. check potassium 2. Type 2 diabetes mellitus without complication, without long-term current use of insulin (HCC) (Chronic) Comments: stable. Orders: - HEMOGLOBIN A1C; Future - COMPREHENSIVE METABOLIC PANEL; Future - CBC WITH DIFF; Future 3. Temporal arteritis (HCC) (Chronic) Comments: discussed in detail with patient this condition can lead to blindness if untreated-- she refuses steroids and refuses return to rheumatology [facility] Documentation Medication Compliance: Compliant most of the time Understanding of Current Medications: Fair Medication Compliance Barriers: None or N/A Self-Management Tools: N/A: no chronic conditions Self-Management Ability: Fair Willingness to Adopt Healthy Behaviors: Fair [facility] Flowsheet was completed/reviewed as part of today's visit. Educated patient regarding the diagnosis, medication/treatment, goals, self- management tools and instructions based on their care plan. They verbalized understanding of the education given on the After Visit Summary [AVS] for today's visit. A copy of the AVS was provided either in writing and/or via [employer]. A new medicine was not prescribed on this visit. documented in this encounter Miscellaneous Notes * Patient Instructions - Bridget Gao RMA - 07/01/2017 10:56 AM EDT Images from the original note were not included. Patient Education Cellulitis Cellulitis is an infection of the skin and the tissue beneath it. The infected area is usually red and tender. Cellulitis occurs most often in the arms and lower legs. CAUSES Cellulitis is caused by bacteria that enter the skin through cracks or cuts in the skin. The most common types of bacteria that cause cellulitis are staphylococci and streptococci. SIGNS AND SYMPTOMS ?? Redness and warmth. ?? Swelling. ?? Tenderness or pain. ?? Fever. DIAGNOSIS Your health care provider can usually determine what is wrong based on a physical exam. Blood testsmay also be done. TREATMENT Treatment usually involves taking an antibiotic medicine. HOME CARE INSTRUCTIONS ?? Take your antibiotic medicine as directed by your health care provider. Finish the antibiotic even if you start to feel better. ?? Keep the infected arm or leg elevated to reduce swelling. ?? Apply a warm cloth to the affected area up to 4 times per day to relieve pain. ?? Take medicines only as directed by your health care provider. ?? Keep all follow-up visits as directed by your health care provider. SEEK MEDICAL CARE IF: ?? You notice red streaks coming from the infected area. ?? Your red area gets larger or turns dark in color. ?? Your bone or joint underneath the infected area becomes painful after the skin has healed. ?? Your infection returns in the same area or another area. ?? You notice a swollen bump in the infected area. ?? You develop new symptoms. ?? You have a fever. SEEK IMMEDIATE MEDICAL CARE IF: ?? You feel very sleepy. ?? You develop vomiting or diarrhea. ?? You have a general ill feeling (malaise) with muscle aches and pains. This information is not intended to replace advice given to you by your health care provider. Make sure you discuss any questions you have with your health care provider. Document Released: 06/04/2006 Document Revised: 05/15/2016 Document Reviewed: 11/09/2012 [employer] Patient Education ??2016 [employer]. Patient Education Vasculitis including Temporal Arteritis Vasculitis is an inflammation of the blood vessel system. This includes the veins, arteries, and capillaries. Vasculitis may affect blood vessels of any type, size, or location. So it can cause problems in any organ system. This includes the central and peripheral nervous systems. The disorder may occur alone. Or it may happen with other disorders, such as temporal arteritis. Temporal arteritis is also called cranial or giant cell arteritis. It is an inflammation of the temporal artery. This artery runs over the roman catholic, beside the eye. SYMPTOMS Symptoms depend on which blood vessels are involved and what organs in the body are affected. They may include: ?? Stiffness. ?? Muscle pain. ?? Fever. ?? Severe headaches. ?? Pain when chewing. ?? Tenderness in the roman catholic area. Other symptoms may include: ?? Anemia. ?? Fatigue. ?? Weight loss. ?? Shaking. ?? Vision loss. ?? Sweats. TREATMENT Treatment depends on the severity of the disorder and the patient's general health. It may include cortisone or cytotoxic drugs. Other treatments may include: l Removal and reinfusion of blood plasma (plasmapheresis). l Intravenous gammaglobulin. l Cyclosporin. Some cases may not require treatment. Treatment for temporal arteritis and its symptoms generally includes corticosteroid therapy. Early detection of temporal arteritis and immediate treatment are needed to prevent vision loss. WHAT WILL HAPPEN The prognosis varies. It depends on the severity of the disorder. Mild cases are generally not life-threatening. But severe cases involve major organ systems. Severe cases may be permanently disabling or fatal. The prognosis for patients with temporal arteritis is generally good. With treatment, most individuals have complete remission. But vision loss may be irreversible. Provided by: The National [place] of Neurological Disorders and Stroke Document Released: 08/15/2003 Document Re-Released: 11/21/2009 ExitCare?? Patient Information ??2009 [email or web address]. documented in this encounter Plan of Treatment Upcoming Encounters Date Type Department Care Team (Late st Contact Info) Description 07/29/2024 9:00 AM EST Appointment [facility] [address] [place] [address] Jomar Kim MD [address] [place] [address] documented as of this encounter [...] Component 5.6( 4 3:04 PM EST) No Rogers, Rachel Peck, RMLeigh documented as of this encounter Results * (ABNORMAL) CBC WITH DIFF (07/01/2017 11:07 AM EDT) [facility] Signature WBC 9.9 4.0 - 11.0 x10(3)/mcL 07/01/2017 2:41 PM EDT [facility] RBC 3.64(L) 3.80 - 5.10 x10(6)/mcL 07/01/2017 2:41 PM EDT [facility] Hgb 10.3(L) 12.0 - 15.6 gm/dL 07/01/2017 2:41 PM EDT [facility] Hct 32.1(L) 35.7 - 45.9 % 07/01/2017 2:41 PM EDT [facility] MCV 88.2 82.5 - 99.8 fL 07/01/2017 2:41 PM EDT [facility] MCH 28.3 27.0 - 34.3 pg 07/01/2017 2:41 PM EDT [facility] MCHC 32.1 32.1 - 35.3 gm/dL 07/01/2017 2:41 PM EDT [facility] RDW 15.0 11.5 - 15.0 % 07/01/2017 2:41 PM EDT [facility] Platelet 294 144 - 423 x10(3)/mcL 07/01/2017 2:41 PM EDT [facility] MPV 8.4 6.8 - 10.8 fL 07/01/2017 2:41 PM EDT [facility] Neut Percent 69.7 % 07/01/2017 2:41 PM EDT [facility] Lymph Percent 16.8 % 07/01/2017 2:41 PM EDT [facility] Talbot Percent 9.9 % 07/01/2017 2:41 PM EDT [facility] Eos Percent 3.1 % 07/01/2017 2:41 PM EDT [facility] Baso Percent 0.5 % 07/01/2017 2:41 PM EDT [facility] Neut # 6.9 1.8 - 7.7 x10(3)/mcL 07/01/2017 2:41 PM EDT [facility] Lymph # 1.7 0.6 - 4.8 x10(3)/mcL 07/01/2017 2:41 PM EDT [facility] Talbot # 1.0 0.0 - 1.3 x10(3)/mcL 07/01/2017 2:41 PM EDT [facility] Eos# 0.3 0.0 - 0.5 x10(3)/mcL 07/01/2017 2:41 PM EDT [facility] Baso # 0.0 0.0 - 0.2 x10(3)/mcL 07/01/2017 2:41 PM EDT [facility] Blood Venipuncture / Unknown 07/01/2017 11:07 AM EDT 07/01/2017 11:07 AM EDT us Annalise Oneill MD HEMATOLOGY ORDERABLES Final R esult [facility] [address] [place] [address] * (ABNORMAL) COMPREHENSIVE METABOLIC PANEL (07/01/2017 11:07 AM EDT) Sodium 141 136 - 145 mmol/L 07/01/2017 3:24 PM EDT [facility] Potassium 3.8 3.5 - 5.0 mmol/L 07/01/2017 3:24 PM EDT [facility] Chloride 101 98 - 107 mmol/L 07/01/2017 3:24 PM EDT [facility] Total CO2 26 22 - 29 mmol/L 07/01/2017 3:24 PM EDT [facility] Anion Gap 14 7 - 16 mmol/L 07/01/2017 3:24 PM EDT [facility] Calcium 10.3(H) 8.8 - 10.2 mg/dL 07/01/2017 3:24 PM EDT [facility] Glucose Lvl 108(H) 82 - 100 mg/dL 07/01/2017 3:24 PM EDT [facility] BUN 11 8 - 23 mg/dL 07/01/2017 3:24 PM [facility] Creatinine 0.87 0.51 - 1.30 mg/dL 07/01/2017 3:24 PM [facility] Albumin 4.3 3.2 - 4.6 gm/dL 07/01/2017 3:24 PM [facility] Total Protein 7.6 6.4 - 8.3 gm/dL 07/01/2017 3:24 PM [facility] Bili Total 0.3 0.1 - 1.3 mg/dL 07/01/2017 3:24 PM [facility] ALT 11 <=41 IU/L 07/01/2017 3:24 PM [facility] AST 22 <=40 IU/L 07/01/2017 3:24 PM [facility] Alk Phos 72 35 - 104 IU/L 07/01/2017 3:24 PM [facility] GFR Afr Am 83 mL/min/1.7 3 m2 07/01/2017 3:24 PM [facility] GFR Non Afr Am 72 mL/min/1.7 3 m2 07/01/2017 3:24 PM [facility] Comment: GFR Afr Am and GFR Non Afr Am calculated using CKD-EPI equation. ?? GFR Category ?GFR(mL/min/1.73 m??) ? Kidney Function G1 ?>=90 ?Normal or high G2 ?60-89 ? Mildly decreased G3a ? 45-59 ? Mildly to moderately decreased G3b ? 30-44 ? Moderately to severely decreased G4 ?15-29 ? Severely decreased G5 ?<15 ? Kidney Failure Blood Venipuncture / Unknown 07/01/2017 11:07 AM EDT 07/01/2017 11:07 AM EDT us Annalise Oneill MD CHEMISTRY ORDERABLES Final Re sult [facility] [address] [place] [address] * HEMOGLOBIN A1C (07/01/2017 11:07 AM EDT) Hgb A1C 6.0 <=7.0 % 07/01/2017 4:50 PM EDT [facility] Blood Venipuncture / Unknown 07/01/2017 11:07 AM EDT 07/01/2017 11:07 AM EDT Narrative [facility] - 07/01/2017 4:50 PM EDT Reference Interval for Hgb A1c Hgb A1c ?Interpretation ? < 6.0 ?Non-Diabetic Range 6.0 - 7.0 ? ADA Therapeutic Target ??> 7.0 ?Action suggested us Annalise Oneill MD CHEMISTRY ORDERABLES Final Re sult [facility] [address] [place] [address] documented in this encounter Visit Diagnoses Diagnosis Cellulitis of leg, left- Primary Cellulitis and abscess of leg, except foot Type 2 diabetes mellitus without complication, without long-term current use of insulin (HCC) Temporal arteritis (HCC) Giant cell arteritis documented in this encounter Discontinued Medications Medication Sig Discontinue Reason Start Date End Da te nortriptyline (PAMELOR) 25 mg Oral CapsuleIndications:Insomn ia, persistent Take 1 Cap by mouth nightly. Side effects 07/09/2016 07/01/2017 documented as of this encounter Care Teams Assembler Bonding Relationship Specialty Start Date End Date Annalise Oneill MD [address] [place] [id number] PCP - General Family Medicine 11/19/16 08/19/18 Garett Holt MD Internal Medicine-Gastroenterology 12/22/12 Ruiz Stokes MD [address] [place] [id number] Internal Medicine-Cardiovascular Disease 07/25/14 Yenny Schwab MD [address] [place] [address] [address] [place] [address] Internal Medicine-Rheumatology 12/11/16 documented as of this encounter
--- OUTSIDE RECORDS SUMMARY | 2024-07-22 16:13 | XMS_ITS | Encounter Summary ---
Author Organization [place] [address] Care Team Providers Care Dielectric Tester Name Role Phone Garett Holt MD Unavailable [phone] Ruiz Stokes MD Unavailable [phone] Annalise Oneill MD Primary Care Provider [phone] Yenny Schwab MD Unavailable [phone] Encounter Details Date Type Department Care Team (Latest Contact Info) Description 03/25/2017 10:43 AM EDT - 03/25/2017 11:59 PM EDT Hospital Encounter [facility] [address] [place] [address] Temporal arteritis (HCC); PMR (polymyalgia rheumatica) ([facility]) Discharge Disposition: Home or Self Care [...] ORAL Take 1 Tab by mouth daily. miconazole (MICATIN) 2 % Top Powder Apply topically every 12 hours for 42 days. 30 g 03/14/2017 7 polyethylene glycol (GLYCOLAX) 17 gram/dose Oral PowderIndication s:Constipation, chronic Take 17 g by mouth daily for 30 days. 510 g 03/25/2017 7 documented as of this encounter Discharge Disposition Disposition Code Departure Means Destination Home or Self Care documented in this encounter Plan of Treatment Upcoming Encounters Date Type Department Care Team (Late st Contact Info) Description 07/29/2024 9:00 AM EST Appointment [facility] [address] [place] [address] Jomar Kim MD [address] [id number] documented as of this encounter Goals Goal [...] Associated Diagnosis Comments SEDIMENTATION RATE AUTOMATED Routine 03/25/2017 10:50 AM EDT Temporal arteritis (HCC) PMR (polymyalgia rheumatica) (HCC) C-REACTIVE PROTEIN Routine 03/25/2017 10 :50 AM EDT Temporal arteritis (HCC) PMR (polymyalgia rheumatica) (HCC) documented in this encounter Results * (ABNORMAL) SEDIMENTATION RATE AUTOMATED (03/25/2017 10:50 AM EDT) Sed Rate 54(H) 0 - 30 mm/hr [facility] Blood specimen (specimen) UPPER LIMB STRUCTURE / Unknown 03/25/2017 10:50 AM EDT 03/25/2017 2:01 PM EDT us Yenny Schwab MD HEMATOLOGY ORDERABLES Fin al Result [facility] [address] [place] [address] * (ABNORMAL) C-REACTIVE PROTEIN (03/25/2017 10:50 AM EDT) CRP 10.38(H) <=5.00 mg/L [facility] Blood specimen (specimen) UPPER LIMB STRUCTURE / Unknown 03/25/2017 10:50 AM EDT 03/25/2017 1:55 PM EDT us Yenny Schwab MD CHEMISTRY ORDERABLES Mercedes l Result [facility] [address] [place] [address] documented in this encounter Visit Diagnoses Diagnosis Temporal arteritis (HCC) Giant cell arteritis PMR (polymyalgia rheumatica) (HCC) Polymyalgia rheumatica documented in this encounter Orders Lab Orders Without Results Count Last Ordered D ate First Ordered Date OP VENIPUNCTURE CHARGE 1 03/25/2017 documented in this encounter Care Teams Dielectric Tester Relationship Specialty Start Date End Date Annalise Oneill MD [address] [place] [address] PCP - General Family Medicine 11/19/16 08/19/18 Garett Holt MD Internal Medicine-Gastroenterology 12/22/12 Ruiz Stokes MD [address] [place] [address] Internal Medicine-Cardiovascular Disease 07/25/14 Yenny Schwab MD [address] [facility] [address] [place] [address] Internal Medicine-Rheumatology 12/11/16 documented as of this encounter
--- OUTSIDE RECORDS SUMMARY | 2024-07-22 16:13 | XMS_ITS | Encounter Summary ---
Author Organization [place] [address] Care Team Providers Care Escalator Mechanic Name Role Phone Garett Holt MD Unavailable [phone] Ruiz Stokes MD Unavailable [phone] Annalise Oneill MD Primary Care Provider Yenny Schwab MD Unavailable [phone] Reason for Visit * Reason Comments Medication Refill Encounter Details Date Type Department Care Team (Late st Contact Info) Description 03/31/2017 Refill [facility] [address] [place] [address] Cristiane Shirley MD [address] [place] [address] Medication Refill Social History Tobacco Use Types [...] Date STOOL SOFTENER 100 mg Oral Capsule TAKE 1 CAPSULE BY MOUTH TWICE DAILY 60 Cap 2 03/31/2017 8 documented in this encounter Plan of Treatment Upcoming Encounters Date Type Department Care Team (Late st Contact Info) Description 07/29/2024 9:00 AM EST Appointment [facility] [address] [place] [address] Jomar Kim MD [address] [place] [address] documented as of this encounter Goals Goal Patient Goal Type Associated Problems Recent Progress Patient-Stated? Author Blood Pressure < 140/90 Blood Pressure 110/72(08/20/ 2024 2:44 PM EDT) No Rachel Rogers RMA [...] on filedocumented in this encounter Care Teams Escalator Mechanic Relationship Specialty Start Date End Date Annalise Oneill MD [address] [place] [address] [address] PCP - General Family Medicine 11/19/16 08/19/18 Garett Holt MD Internal Medicine-Gastroenterology 12/22/12 Ruiz Stokes MD [address] [place] [id number] Internal Medicine-Cardiovascular Disease 07/25/14 Yenny Schwab MD [address] [address] Internal Medicine-Rheumatology 12/11/16 documented as of this encounter
--- OUTSIDE RECORDS SUMMARY | 2024-07-22 16:13 | XMS_ITS | Encounter Summary ---
Author Organization [place] [address] Care Team Providers Care Bacteriologist Dairy Name Role Phone Garett Holt MD Unavailable [phone] Ruiz Stokes MD Unavailable [phone] Annalise Oneill MD Primary Care Provider [phone] Yenny Schwab MD Unavailable [phone] Reason for Visit * Reason Onset Date Comments Medication Refill 03/12/2017 Encounter Details Date Type Department Care Team (Late st Contact Info) Description 03/12/2017 Refill [facility] [address] [facility] [address] [place] [address] Yenny Schwab MD [address] [address] Medication Refill Social History Tobacco Use Types [...] on file documented as of this encounter Ordered Prescriptions Prescription Sig Dispense Quantity Refills Last Filled Start Date End Date predniSONE (DELTASONE) 10 mg Oral Tablet Take 6 Tabs by mouth daily. 180 Tab 1 03/12/2017 01/06/2018 documented in this encounter Miscellaneous Notes * Telephone Encounter - Yenny Schwab MD - 03/12/2017 1:21 PM EDT Script sent, the patient should take 60 mg daily- with new script it will be 6 tablets daily . * Telephone Encounter - Lis Lr MA - 03/12/2017 1:06 PM EDT Del; 02/28/17 Labs; 02/28/17 Nov; 04/11/17 * Telephone Encounter - Reji Carrion - 03/12/2017 12:52 PM EDT [facility] called, states pt has 1 more days worth of a steroid (she thinks prednisone) and her pharmacy's computer system is down, so she wanted to have the prescription [facility] [place]. documented in this encounter Plan of Treatment [...] Diagnosis Temporal arteritis (HCC) Giant cell arteritis documented in this encounter Discontinued Medications Medication Sig Discontinue Reason Start Date End Da te predniSONE (DELTASONE) 20 mg Oral TabletIndications:Tempora l arteritis (HCC) Take 4 Tabs by mouth daily. Cancelled by 01/17/2017 03/12/2017 documented as of this encounter Care Teams Bacteriologist Dairy Relationship Specialty Start Date End Date Annalise Oneill MD [address] [place] [address] PCP - General Family Medicine 11/19/16 08/19/18 Garett Holt MD Internal Medicine-Gastroenterology 12/22/12 Ruiz Stokes MD [address] [place] [address] Internal Medicine-Cardiovascular Disease 07/25/14 Yenny Schwab MD 651 [facility] [address] [place] [address] Internal Medicine-Rheumatology 12/11/16 documented as of this encounter
--- OUTSIDE RECORDS SUMMARY | 2024-07-22 16:13 | XMS_ITS | Encounter Summary ---
Author Organization [place] [address] Care Team Providers Care Talent Development Coordinator Name Role Phone Garett Holt MD Unavailable [phone] Ruiz Stokes MD Unavailable [phone] Annalise Oneill MD Primary Care Provider Yenny Schwab MD Unavailable [phone] Reason for Visit * Reason Comments Hospital Follow Up pt here for her hosp ital follow up/ pt was admitted for dehydration an UTI, pt c/o still having pain with urination, has finished abx. was told to hold her spironlactone until see PCP and to only take 1 tab of prednisone until see PCP Back Pain c/o back pain radiat ing up into shoulders, no known injuries. Encounter Details Date Type Department Care Team (Late st Contact Info) Description 03/25/2017 9:10 AM EDT Office Visit [facility] [address] [place] [address] Annalise Oneill MD [address] [place] [address] Pain with urination (Primary Dx); Constipation, chronic; Temporal arteritis (HCC); PMR (polymyalgia rheumatica) ([facility]) Social History Tobacco Use Types Packs/Day Years [...] Sign Reading Time Taken Comments Blood Pressure 114/58 03/25/2017 9:19 AM EDT Pulse 68 03/25/2017 9:19 AM EDT Temperature 36.6 ??C (97.9 ??F) 03/25/2017 9:19 AM ED T Respiratory Rate 12 03/25/2017 9:19 AM EDT Oxygen Saturation - - Inhaled Oxygen Concentration - - Weight 118 kg (260 lb 3.2 oz) 03/25/2017 9:19 AM EDT Height 157.5 cm (5' 2 ) 03/25/2017 9:19 AM EDT Body Mass Index 47.59 03/25/2017 9:19 AM EDT documented in this encounter [...] Elle Almanza LPN documented in this encounter Ordered Prescriptions Prescription Sig Dispense Quantity Refills Last Filled Start Date End Date polyethylene glycol (GLYCOLAX) 17 gram/dose Oral PowderIndications:C onstipation, chronic Take 17 g by mouth daily for 30 days. 510 g 03/25/2017 04/24/2017 documented in this encounter Progress Notes * Annalise Oneill MD - 03/25/2017 9:10 AM EDT Subjective Chief Complaint Patient presents with ??? Hospital Follow Up pt here for her hospital follow up/ pt was admitted for dehydration an UTI, pt c/o still having pain with urination, has finished abx. was told to hold her spironlactone until see PCP and to only take 1 tab of prednisone until see PCP ??? Back Pain c/o back pain radiating up into shoulders, no known injuries. Patient presents as above. She has been feeling better overall since her hospital stay. She is having diffuse myalgias. She decreased her prednisone to 10 mg daily instead of the 60 mg asprescsribed. This appears to be error from hospital discharge. She does have right sided headache She has been having some dysphagia. She complains of reflux when she eats anything greasy She complains of lower abd pain in the area of her hernia. She is having regular bowel movements that alternate between constipation and diarrhea. She has had diarrhea only after using laxatives Not checking blood sugars Rheum 04/11/17 Review of Systems Constitutional: Negative for activity change, appetite change, fatigue and fever. Respiratory: Negative for chest tightness, shortness of breath and wheezing. Cardiovascular: Negative for chest pain, palpitations and leg swelling. Genitourinary: Positive for dysuria. Musculoskeletal: Positive for back pain. Neurological: Negative for dizziness and headaches. Objective BP 114/58 (BP Location: Left arm, Patient Position: Sitting) Pulse 68 Temp 97.9 ??F (36.6 ??C) (Temporal) Resp 12 Ht 5' 2 (1.575 m) Wt 260 lb 3.2 oz (118 kg) BMI 47.59 kg/m?? Physical Exam Constitutional: She is oriented [...] exhibits no mass. There is no tenderness. A hernia ispresent. Hernia confirmed positive in the ventral area. Musculoskeletal: She exhibits tenderness (shoulder girdle tenderness to palpation). Neurological: She is alert and oriented to person, place, and time. She has normal reflexes. Skin: Skin is warm and dry. Psychiatric: She has a normal mood and affect. Judgment normal. Vitals reviewed. Diagnoses and all orders for this visit: 1. Pain with urination Comments: Await results of urine culture. Recently finished course of Cipro Orders: - POCT URINALYSIS AUTOMATED 2. Constipation, chronic - polyethylene glycol (GLYCOLAX) 17 gram/dose Oral Powder; Take 17 g by mouth daily for 30 days. Dispense: 510 g; Refill: 0 3. Temporal arteritis (HCC) (Chronic) Comments: Restart prednisone where rheumatology had prescribed it. 4. PMR (polymyalgia rheumatica) (HCC) (Chronic) Comments: Discussed at length this is the cause of her muscle aches. Restart prednisone at the proper dosage last given. Patient displays poor insight into her current condition. Recommended that she get back on the proper dosing of her prednisone. He was not decreased at discharge from her recent hospital stay. She is due to see rheumatology in early April. I reminded her that she has lab work to do for them prior to that visit. [facility] Documentation Medication Compliance - non-compliant much of the time Understanding of current medications - fair Self-Management Tools - none Self-Management Ability - fair Willingness to adopt healthy behaviors - fair Patient Barriers: no significant Existing barriers discussed and addressed in orders and /or referrals. Educated patient and caregiver regarding the diagnosis, medication/treatment, goals, self-management tools and instructions based on their care plan. They verbalized understanding of the education given on the After Visit Summary [AVS] for today's visit. A copy of the AVS was provided either in writing and/or via [employer]. A new medicine was prescribed during this [...] encounter Miscellaneous Notes * Patient Instructions - Murray BridgetMULU Brenner - 03/25/2017 9:17 AM EDT Images from the original note were not included. Patient Education Dehydration, Adult Dehydration means your body does not have as much fluid or water as it needs. It happens when you take in less fluid than you lose. Your kidneys, brain, and heart will not work properly without the right amount of fluids. Dehydration can range from mild to severe. It should be treated right away to help prevent it from becoming severe. HOME CARE ?? Drink enough fluid to keep your pee (urine) clear or pale yellow. ?? Drink water or fluid slowly by taking small sips. You can also try sucking on ice cubes. ?? Have food or drinks that contain electrolytes. Examples include bananas and sports drinks. ?? Take [id number] and prescription medicines only as told by your doctor. ?? Prepare oral rehydration solution (ORS) according to the instructions that came with it. Take sips of ORS every 5 minutes until your pee returns to normal. ?? If you are throwing up (vomiting) or have watery poop (diarrhea), keep trying to drink water, ORS, or both. ?? If you have watery poop, avoid: ?? Drinks with caffeine. ?? Fruit juice. ?? Milk. ?? Carbonated soft drinks. ?? Do not take salt tablets. This can lead to having too much sodium in your body (hypernatremia). GET HELP IF: ?? You cannot eat or drink without throwing up. ?? You have had mild watery poop for longer than 24 hours. ?? You have a fever. GET HELP RIGHT AWAY IF: ?? You have very strong thirst. ?? You have very bad watery poop. ?? You have not peed in 6-8 hours, or you have peed only a small amount of very dark pee. ?? You have shriveled skin. ?? You are dizzy, confused, or both. This information is not intended to replace advice given to you by your health care provider. Make sure you discuss any questions you have with your health care provider. Document Released: 06/21/2010 Document Revised: 05/15/2016 Document Reviewed: 01/10/2016 [employer] Interactive Patient Education ??2015 [employer]. documented in this encounter Plan of Treatment Upcoming Encounters Date Type Department Care Team (Late st Contact Info) Description 07/29/2024 9:00 AM EST Appointment [facility] [address] [place] [address] Jomar Kim MD [address] [place] [address] documented as of this encounter [...] Regan RMA documented as of this encounter Procedures Procedure Name Priority Date/Time Associated Diagnosis Comments POCT URINALYSIS AUTOMATED Routine 03/25/2017 9:31 AM EDT Pain with urination documented in this encounter Results * POCT URINALYSIS AUTOMATED (03/25/2017 9:31 AM EDT) Color, UA CLEAR,YELLOW ,ORANGE,RUST SEP OFFICE Clarity, UA CLEAR,CLOUDY SEP OFFICE Glucose, UA neg G/DL% SEP OFFICE Bilirubin, UA neg POS/NEG SEP OFFICE Ketones, UA neg POS/NEG SEP fountain vending mechanic Grav, UA 1.025 1.001 - 1.035 G/DL SEP OFFICE Blood, UA neg POS/NEG SEP OFFICE pH, UA 6.0 5.0 - 8 SEP OFFICE Protein, UA neg POS/NEG SEP OFFICE Urobilinogen, UA neg 0.2 - 1.0 MG/DL SEP OFFICE Leukocytes, UA 2+ POS/NEG SEP OFFICE Nitrite, UA neg POS/NEG SEP OFFICE Appear BF Clear, Slightly Cloudy Clear, Cloudy SEP OFFICE Lot Number [id number] SEP OFFICE Expiration Date 05/09/2017 SEP OFFICE SeriAl # SEP OFFICE Urine specimen (specimen) 03/25/2017 9:31 AM EDT Annalise Oneill MD POINT OF CARE TEST ORDERABLES Final Result SEP OFFICE documented in this encounter Visit Diagnoses Diagnosis Pain with urination- Primary Constipation, chronic Unspecified constipation Temporal arteritis (HCC) Giant cell arteritis PMR (polymyalgia rheumatica) (HCC) Polymyalgia rheumatica documented in this encounter Discontinued Medications Medication Sig Discontinue Reason Start Date End Da te metFORMIN (GLUCOPHAGE) 500 mg Oral TabletIndications:Type 2 diabetes mellitus without complication, unspecified correction insulin use status TAKE 1 TABLET BY MOUTH ONCE DAILY IN THE MORNING WITH BREAKFAST DELETE-Duplicate 03/17/2017 03/25/2017 alendronate (FOSAMAX) 70 mg Oral TabletIndications:Age-r elated osteoporosis without current pathological fracture Take 1 Tab by mouth every 7 days. Take in AM with a glass of water and do not take anything else by mouth or lie down for the next 30 min. DELETE-Therapy completed 01/17/2017 03/25/2017 bisoprolol (ZEBETA) 5 mg Oral Tablet Take 5 mg by mouth daily. DELETE-Therapy completed 03/25/2017 fUROsemide (LASIX) 20 mg Oral Tablet Take 20 mg by mouth every 12 hours. DELETE-Therapy completed 03/25/2017 spironolactone (ALDACTONE) 25 mg Oral Tablet Take 25 mg by mouth 2 times daily. Non-compliance 03/25/2017 documented as of this encounter Care Teams Talent Development Coordinator Relationship Specialty Start Date End Date Annalise Oneill MD [address] [place] [address] PCP - General Family Medicine 11/19/16 08/19/18 Garett Holt MD Internal Medicine-Gastroenterology 12/22/12 Ruiz Stokes MD [address] [place] [address] Internal Medicine-Cardiovascular Disease 07/25/14 Yenny Schwab MD 651 [facility] [address] [place] [address] Internal Medicine-Rheumatology 12/11/16 documented as of this encounter
--- OUTSIDE RECORDS SUMMARY | 2024-07-22 16:14 | XMS_ITS | Encounter Summary ---
Author Organization [place] [address] Care Team Providers Care Welder Fitter Apprentice Name Role Phone Garett Holt MD Unavailable [phone] Ruiz Stokes MD Unavailable [phone] Annalise Oneill MD Primary Care Provider [phone] Yenny Schwab MD Unavailable [phone] Reason for Visit * Auth/Cert/Inpt Specialty Diagnoses / Procedures Referred By Contac t Referred To Contact Diagnoses Intractable chronic cluster headache Intractable chronic cluster headache [G44.021] Procedures NV TEMPORAL ARTERY LIGATN OR BX RIGHT TEMPORAL ARTERY BIOPSY Referral ID Status Reason Start Date Expiration Date Visits Re quested Visits Authorized [id number] 1 1 Encounter Details Date Type Department Care Team (Late st Contact Info) Description 01/06/2017 1:34 PM EDT Anesthesia Event [facility] [address] [place] [address] Mercy Lofton MD [address] [place] [address] [address] [place] [address] Nan Coats MD [address] [place] [address] [facility] [address] Anesthesia Record Procedure Summary Procedure Name Responsible Anesthesiologist Anesthesia Start Time Anesthesia Stop Time TEMPORAL ARTERY BIOPSY (Right) Mercy Lofton MD 01/06/17 1334 01/06/17 1447 Events Date Time Event Comment 01/06/2017 1016 1334 An Start 1338 An Start Data 1338 Immediate Pre Anesthetic Ass es 1358 Incision 1441 an stop data 1447 Handoff I completed my SBAR handoff to the receiving nurse which have included the followin. Identification of the patient, family, or patient surrogate 2. Identification of the responsible practitioner 3. Pertinent medical history 4. Surgical procedure and reason for procedure 5. Intraoperative anesthetic management 6. Expectations/Plans for the early post-procedure period 7. Opportunity for questions and acknowledgement of understanding from the receiving PACU/ICU steam conditioner operator 1447 An Stop Meds Name Total midazolam (VERSED) injection 1 mg/mL 2 m g propofol (DIPRIVAN) injection 40 mg fentaNYL 50 MCG/ML INJ 75 mcg ondansetron (ZOFRAN) injection 4 mg /2 m L 4 mg levOFLOXacin in dextrose 5% (LEVAQUIN) I VPB 500 mg 500 mg lactated ringers infusion 400 mL * Agents Name O2 * Blood No blood administrations on file. Lines, Drains, and Airways Type Details Placement Removal Peripheral IV 01/06/17; 1002; 20; Right; Upper arm; Shannan jarquin RN; 01/06/17; 1511 01/06/17 1002 by Yamini Jarquin, MATT 01/06/17 1511 by Lorin Nice, MATT Incision/Procedural Site 01/06/17; 1358; Face; Right, Upper; 01/06/17; 1531 01/06/17 1358 by Molly Beauchamp, MATT 01/06/17 1531 by Discharge Provider, Automatic documented in this [...] on file documented as of this encounter OR Notes * Anesthesia Postprocedure Evaluation - Nan Coats MD - 01/06/2017 3:30 PM EDT Post-Anesthesia Evaluation Note Patient Name: Alyssa Jamil Patient Date: January 06, 2017 Patient Location: PACU Post OP Vitals: stable Level of Consciousness: awake, alert and oriented Post Anesthesia Pain: adequate analgesia Long Acting Local Anesthetic: n/a Airway Patency: patent Difficult Airway: no Respiratory: spontaneous ventilation and room air Cardiovascular: stable Hydration: euvolemic Nausea Controlled: yes Comments: 01/06/17 1501 BP: 111/79 Pulse: 56 Resp: 20 Temp: 36.2 ??C (97.1 ??F) SpO2: 100% Glucose Lvl Date Value Ref Range Status 01/06/2017 128 (H) 70 - 100 mg/dL Final * Anesthesia Preprocedure Evaluation - Mercy Lofton MD - 01/03/2017 10:31 AM EDT Pre-Anesthesia Evaluation Note Patient Name: Alyssa Jamil Sex: female Patient : 1955 Age: 61 y.o. Patient Date: January 03, 2017 Procedure: RIGHT TEMPORAL ARTERY BIOPSY Patient Active Problem List Diagnosis ??? Esophageal reflux ??? Osteoarthrosis, unspecified whether generalized or localized, unspecified site ??? Dysphagia ??? Encounter for screening colonoscopy ??? Leg pain, right ??? SOB (shortness of breath) ??? Systolic murmur ??? Ventral hernia ??? Hiatal hernia ??? DDD (degenerative disc disease), lumbosacral ??? HAMIDA (obstructive sleep apnea) ??? Diabetes mellitus (HCC) ??? Endometrial hyperplasia ??? Endometrial hyperplasia ??? History of endometrial cancer ??? Chronic headache Anesthesia Evaluation Patient summary reviewed, Nursing notes reviewed and Previous anesthesia No history of anesthetic complications Airway Mallampati: III TM distance: >3 FB Neck ROM: fullPossible difficult airway Dental (+) poor Pulmonary breath sounds clear to auscultation (+)asthma (no inhalers), sleep apnea (no machine), a smoker (quit 1985) (former), (-) shortness of breath, URI cough sputum Cardiovascular (+) hypertension (well controlled), hyperlipidemia, angina (patient complains of whole body pain including chest pain) (Stable), valvular problems/murmurs (Murmur), , ECG reviewed Rhythm: regular Rate: normal ROS comment: Cath 2015: normal Neuro/Psych (+) headaches, fibromyalgia, Comments: Dizziness/weakness GI/Hepatic/Renal (+) hiatal hernia, GERD well controlled, , Endo/Other (+) diabetes mellitus (FBS 80s) type 2 well controlled, arthritis: Osteo, back or neck pain (DDD):,anemia, morbid obesity (BMI 43.3), Current Other findings: Labs reviewed from 11/19/16- Hgb 11.5 EKG 05/2016: SR/SA, low QRS Body mass index is 43.94 kg/(m^2). Anesthesia Plan ASA 3 Anesthesia Plan: MAC Intravenous induction Monitors: STD Anesthetic plan and risks discussed with patient. documented in this encounter Plan of Treatment Upcoming Encounters Date Type Department Care Team (Late st Contact Info) Description 07/29/2024 9:00 AM EST Appointment [facility] [address] [place] [address]. [place] [address] Jomar Kim MD [address] [facility] [place] [id number] documented as of this encounter Goals Goal Patient Goal Type Associated Problems Recent Progress Patient-Stated? Author Blood Pressure < 140/90 Blood Pressure 110/72(2023 2:44 PM EDT) No Rachel Rogers RMA BMI (Calculated) < 30 General 50.9(04/27/20 2:44 PM EDT) No Rachel Rogers RMA Eat better, exercise, reach an ideal body weight General No Ni Clinton, MATT HEMOGLOBIN A1C < 7.0 Result Component 5.6( 3:04 PM EST) No Rachel Rogers RMA documented as of this encounter Visit Diagnoses Not on filedocumented in this encounter Administered Medications Inactive Administered Medications - up to 1 most recent administrations Medication Order MAR Action Action Date Dose Rate Site fentaNYL (SUBLIMAZE) 50 mcg/mL injection Intravenous, PRN (Anesthesia), Starting on Fri01/06/17 at 1344, Until Fri01/06/17 at 1447, Anesthesia Intra-op Given 01/06/2017 1:50 PM EDT 25 mcg lactated ringers infusion Intravenous, at 100 mL/hr, PREPROCEDURE CONTINUOUS, Starting on Fri01/06/17 at 0931, Until Fri01/06/17 at 1929, To be given in SDS/Pre-op Holding Area, Pre-op (Holding/SDS Meds) New Bag 01/06/2017 1:33 PM EDT levOFLOXacin in dextrose 5% (LEVAQUIN) IVPB 500 mg 500 mg, Intravenous, ONCE PREPROCEDURE, 1 dose, On Fri01/06/17 at 1315, Administer over 60 Minutes, Administer 60 minutes pre-op, Pre-op (Antibiotic) Given 01/06/2017 1:38 PM EDT 500 mg midazolam (VERSED) injection PRN (Anesthesia), Starting on Fri01/06/17 at 1331, Until Fri01/06/17 at 1447, Anesthesia Intra-op Given 01/06/2017 1:31 PM EDT 2 mg ondansetron (ZOFRAN) 4 mg/2 mL injection Intravenous, PRN (Anesthesia), Starting on Fri01/06/17 at 1352, Until Fri01/06/17 at 1447, Nausea, Anesthesia Intra-op Given 01/06/2017 1:52 PM EDT 4 mg propofol (DIPRIVAN) injection Intravenous, PRN (Anesthesia), Starting on Fri01/06/17 at 1346, Until Fri01/06/17 at 1447, Anesthesia Intra-op Given 01/06/2017 1:56 PM EDT 10 mg documented in this encounter Orders Medications Ordered That Edwin ht Not Have Been Administered Count Last Ordered Date First Ordered Date midazolam (VERSED) injection 1 01/06/2017 documented in this encounter Care Teams Welder Fitter Apprentice Relationship Specialty Start Date End Date Annalise Oneill MD [address] [place] [address] PCP - General Family Medicine 11/19/16 08/19/18 Garett Holt MD Internal Medicine-Gastroenterology 12/22/12 Ruiz Stokes MD [address] [place] [id number] Internal Medicine-Cardiovascular Disease 07/25/14 Yenny Schwab MD [address]51 [facility] Building [address] [place] [address] Internal Medicine-Rheumatology 12/11/16 documented as of this encounter
--- OUTSIDE RECORDS SUMMARY | 2024-07-22 16:14 | XMS_ITS | Encounter Summary ---
Author Organization [place] [address] Care Team Providers Care Custom Decorating Consultant Name Role Phone Garett Holt MD Unavailable [phone] Ruiz Stokes MD Unavailable [phone] Annalise Oneill MD Primary Care Provider Yenny Schwab MD Unavailable [phone] Reason for Visit * Reason Onset Date Comments Medication Refill 01/09/2017 Encounter Details Date Type Department Care Team (Late st Contact Info) Description 01/09/2017 [facility] [address] [place] [address] Wendy Espinoza LPN [address] [place] [address] Medication Refill Social History Tobacco [...] type Take 1 Tab by mouth daily. 30 Tab 2 01/09/2017 7 metFORMIN (GLUCOPHAGE) 500 mg Oral TabletIndications:Ty pe 2 diabetes mellitus without complication, unspecified fci insulin use status Take 1 Tab by mouth daily. with breakfast 90 Tab 01/09/2017 7 documented in this encounter Miscellaneous Notes * Telephone Encounter - Wendy Espinoza LPN - 01/09/2017 1:41 PM EDT Made adan documented in this encounter Plan of Treatment Upcoming Encounters Date Type Department Care Team (Late st Contact Info) Description 07/29/2024 9:00 AM EST Appointment [facility] [address] [facility] [place] [address] Jomar Kim MD [address] [place] [address] documented as of this encounter [...] 4 3:04 PM EST) No Rogers, Rachel Liv, RMA documented as of this encounter Visit Diagnoses Diagnosis Type 2 diabetes mellitus without complication, unspecified fci insulin use status Hyperlipidemia, unspecified hyperlipidemia type documented in this encounter Discontinued Medications Medication Sig Discontinue Reason Start Date End Da te metFORMIN (GLUCOPHAGE) 500 mg Oral TabletIndications:Type 2 diabetes mellitus without complication, unspecified keno terminal operator insulin use status Take 1 Tab by mouth daily. with breakfast Reorder 11/19/2016 01/09/2017 atorvastatin (LIPITOR) 20 mg Oral TabletIndications:Hyperli pidemia, unspecified hyperlipidemia type Take 1 Tab by mouth daily. Reorder 11/20/2016 01/09/2017 documented as of this encounter Care Teams Custom Decorating Consultant Relationship Specialty Start Date End Date Annalise Oneill MD [address] [place] [address] PCP - General Family Medicine 11/19/16 08/19/18 Garett Holt MD Internal Medicine-Gastroenterology 12/22/12 Ruiz Stokes MD [address] [place] [address] Internal Medicine-Cardiovascular Disease 07/25/14 Yenny Schwab MD 6[address] [facility] [address] [place] [address] Internal Medicine-Rheumatology 12/11/16 documented as of this encounter
--- OUTSIDE RECORDS SUMMARY | 2024-07-22 16:14 | XMS_ITS | Encounter Summary ---
Author [place] [address] Care Team Providers Care Manufacturing Assembler Name Role Phone Garett Holt MD Unavailable [phone] Ruiz Stokes MD Unavailable [phone] Annalise Oneill MD Primary Care Provider [phone] Yenny Schwab MD Unavailable [phone] Encounter Details Date Type Department Care Team (Latest Contact Info) Description 01/16/2017 2:24 PM EDT - 01/16/2017 11:59 PM EDT Hospital Encounter [facility] [address] [address] Type 2 diabetes mellitus without complication, unspecified half-way insulin use status; Myalgia; Elevated sed rate Discharge Disposition: Home or Self Care Social [...] on file documented as of this encounter Medications at Time of Discharge CALCIUM ORAL Take 1 Tab by mouth daily. carvedilol (COREG) 6.25 mg Oral Tablet Take 1 Tab by mouth 2 times daily. with meals 60 Tab 6 04/09/2016 03/14/2017 oxyCODONE-acetami nophen (PERCOCET) 5-325 mg Oral Tablet Take 1-2 Tabs by mouth every 4 hours as needed for up to 30 days. 20 Tab 01/06/2017 02/05/2017 documented as of this encounter Discharge Disposition Disposition Code Departure Means Destination Home or Self Care documented in this encounter Plan of Treatment Upcoming Encounters Date Type Department Care Team (Late st Contact Info) Description 07/29/2024 9:00 AM EST Appointment [facility] [address] [place], [place] [id number] Jomar Kim MD [address] [place] [address] documented as of this encounter [...] Associated Diagnosis Comments SEDIMENTATION RATE AUTOMATED Routine 01/16/2017 2:25 PM EDT Myalgia Elevated sed rate BASIC METABOLIC PANEL Routine 01/16/2017 2:25 PM EDT Type 2 diabetes mellitus without complication, unspecified half-way insulin use status documented in this encounter Results * (ABNORMAL) SEDIMENTATION RATE AUTOMATED (01/16/2017 2:25 PM EDT) Sed Rate 117(H) 0 - 30 mm/hr [facility] Blood specimen (specimen) UPPER LIMB STRUCTURE / Unknown 01/16/2017 2:25 PM EDT 01/16/2017 6:49 PM EDT Annalise Oneill MD HEMATOLOGY ORDERABLES Final R esult Performing Organization Address [facility] Co de Phone Number [address] [address] * (ABNORMAL) BASIC METABOLIC PANEL (01/16/2017 2:25 PM EDT) Sodium 142 136 - 145 mmol/L [facility] Potassium 4.6 3.5 - 5.0 mmol/L [facility] Chloride 101 98 - 107 mmol/L [facility] Total CO2 26 22 - 29 mmol/L [facility] Anion Gap 15 7 - 16 mmol/L [facility] Calcium 10.4(H) 8.8 - 10.2 mg/dL [facility] Glucose Lvl 124(H) 82 - 100 mg/dL [facility] BUN 24(H) 8 - 23 mg/dL [facility] Creatinine 1.24 0.51 - 1.30 mg/dL [facility] GFR Afr Am 53 [facility] GFR Non Afr Am 44 [facility] Blood specimen (specimen) UPPER LIMB STRUCTURE / Unknown 01/16/2017 2:25 PM EDT 01/16/2017 6:49 PM EDT Annalise Oneill MD CHEMISTRY ORDERABLES Edited R esult - Final Performing Organization Address [facility]/ZIP Co de Phone Number [facility] [address] [place] [address] documented in this encounter Visit Diagnoses Diagnosis Type 2 diabetes mellitus without complication, unspecified half-way insulin use status Myalgia Mylagia and myositis, unspecified Elevated sed rate Elevated sedimentation rate documented in this encounter Orders Lab Orders Without Results Count Last Ordered D ate First Ordered Date OP VENIPUNCTURE CHARGE 1 01/16/2017 documented in this encounter Care Teams Manufacturing Assembler Relationship Specialty Start Date End Date Annalise Oneill MD [address] [place] [address] PCP - General Family Medicine 11/19/16 08/19/18 Garett Holt MD Internal Medicine-Gastroenterology 12/22/12 Ruiz Stokes MD [address] [place], [place] [id number] Internal Medicine-Cardiovascular Disease 07/25/14 Yenny Schwab MD [address]51 [facility] [address] [place] [address] Internal Medicine-Rheumatology 12/11/16 documented as of this encounter
--- OUTSIDE RECORDS SUMMARY | 2024-07-22 16:14 | XMS_ITS | Encounter Summary ---
Author Organization [place] [address] Care Team Providers Care Shucker Name Role Phone Garett Holt MD Unavailable [phone] Ruiz Stokes MD Unavailable [phone] Annalise Oneill MD Primary Care Provider [phone] Yenny Schwab MD Unavailable [phone] Encounter Details Date Type Department Care Team (Latest Contact Info) Description 02/28/2017 3:25 PM EDT - 02/28/2017 11:59 PM EDT Hospital Encounter [facility] [address] [facility] [address] [place] [address] Temporal arteritis (HCC) Discharge Disposition: Home or [...] with meals 60 Tab 6 04/09/2016 03/14/2017 documented as of this encounter Discharge Disposition Disposition Code Departure Means Destination Home or Self Care documented in this encounter Plan of Treatment Upcoming Encounters Date Type Department Care Team (Late st Contact Info) Description 07/29/2024 9:00 AM EST Appointment [facility] [address] [place] [id number] Jomar Kim MD [address] [place] [address] documented as of this encounter Goals Goal Patient Goal Type Associated Problems Recent Progress Patient-Stated? Author Blood Pressure < 140/90 Blood Pressure 110/72(2023 2:44 PM EDT) No Rachel Rogers RMA BMI (Calculated) < 30 General 50.9(04/27/20 24 2:44 PM EDT) No Rachel Rgoers RMA Eat better, exercise, reach an ideal body weight General No Ni Clintno, RN Stay Tobacco Free Lifestyle On track( 021 10:23 AM EDT) No Wendy Espinoza LPN HEMOGLOBIN A1C < 7.0 Result Component 5.6( 4 3:04 PM EST) No Rachel Rogers RMA documented as of this encounter Procedures Procedure Name Priority Date/Time Associated Diagnosis Comments SMEAR REVIEW Routine 02/28/2017 3:25 PM EDT DIFFERENTIAL Routine 02/28/2017 3:25 PM EDT SEDIMENTATION RATE AUTOMATED Routine 02/28/2017 3:25 PM EDT Temporal arteritis (HCC) CBC WITH DIFF Routine 02/28/2017 3:25 PM EDT Temporal arteritis (HCC) C-REACTIVE PROTEIN Routine 02/28/2017 3: 25 PM EDT Temporal arteritis (HCC) COMPREHENSIVE METABOLIC PANEL Routine 02/28/2017 3:25 PM EDT Temporal arteritis (HCC) documented in this encounter Results * SMEAR REVIEW (02/28/2017 3:25 PM EDT) [facility] Blood specimen (specimen) 02/28/2017 3:25 PM EDT 02/28/2017 5:46 PM EDT us Yenny Schwab MD HEMATOLOGY ORDERABLES Fin al Result [facility] [address] [place] [address] * (ABNORMAL) DIFFERENTIAL (02/28/2017 3:25 PM EDT) Neut Percent 90.0 % [facility] Lymph Percent 7.0 % [facility] [place] Percent 2.8 % [facility] Eos Percent 0.1 % [facility] Baso Percent 0.1 % [facility] Neut# 12.9(H) 1.8 - 7.7 x10(3)/mcL [facility] Lymph# 1.0 0.6 - 4.8 x10(3)/mcL [facility] Hutchinson# 0.4 0.0 - 1.3 x10(3)/mcL [facility] Eos# 0.0 0.0 - 0.5 x10(3)/mcL [facility] Baso# 0.0 0.0 - 0.2 x10(3)/mcL [facility] Blood specimen (specimen) 02/28/2017 3:25 PM EDT 02/28/2017 5:46 PM EDT us Yenny Schwab MD HEMATOLOGY ORDERABLES Fin al Result Performing Organization Address [facility] Co de Phone Number [facility] [address] [place] [address] * SEDIMENTATION RATE AUTOMATED (02/28/2017 3:25 PM EDT) [facility] Sed Rate 16 0 - 30 mm/hr [facility] Blood specimen (specimen) UPPER LIMB STRUCTURE / Unknown 02/28/2017 3:25 PM EDT 02/28/2017 5:46 PM EDT Yenny Schwab MD HEMATOLOGY ORDERABLES Fin al Result Performing Organization Address [facility] Co de Phone Number [facility] [address] [place] [address] * C-REACTIVE PROTEIN (02/28/2017 3:25 PM EDT) [facility] CRP 0.49 <=5.00 mg/L [facility] Blood specimen (specimen) UPPER LIMB STRUCTURE / Unknown 02/28/2017 3:25 PM EDT 02/28/2017 5:47 PM EDT Yenny Schwab MD CHEMISTRY ORDERABLES Mercedes l Result Performing Organization Address [facility] de Phone Number [facility] [address] [place] [address] * (ABNORMAL) COMPREHENSIVE METABOLIC PANEL (02/28/2017 3:25 PM EDT) [facility] Sodium 136 136 - 145 mmol/L [facility] Potassium 5.6(H) 3.5 - 5.0 mmol/L [facility] Chloride 95(L) 98 - 107 mmol/L [facility] Total CO2 27 22 - 29 mmol/L [facility] Anion Gap 14 7 - 16 mmol/L [facility] Calcium 11.2(H) 8.8 - 10.2 mg/dL [facility] Glucose Lvl 132(H) 82 - 100 mg/dL [facility] BUN 29(H) 8 - 23 mg/dL [facility] Creatinine 0.91 0.51 - 1.30 mg/dL [facility] Albumin 4.6 3.2 - 4.6 gm/dL [facility] Total Protein 7.4 6.4 - 8.3 gm/dL [facility] Bili Total 0.3 0.1 - 1.3 mg/dL [facility] AST 12 <=40 IU/L [facility] ALT 26 <=41 IU/L [facility] Alk Phos 38 35 - 104 IU/L [facility] GFR Afr Am >60 [facility] GFR Non Afr Am >60 [facility] Blood specimen (specimen) UPPER LIMB STRUCTURE / Unknown 02/28/2017 3:25 PM EDT 02/28/2017 5:47 PM EDT us Yenny Schwab MD CHEMISTRY ORDERABLES Edit ed Result - Final [facility] [address] [place] [address] * (ABNORMAL) CBC WITH AUTO DIFF (02/28/2017 3:25 PM EDT) WBC 14.3(H) 4.0 - 11.0 x10(3)/mcL [facility] RBC 4.27 3.80 - 5.10 x10(6)/mcL [facility] Hgb 12.5 12.0 - 15.6 gm/dL [facility] Hct 38.8 35.7 - 45.9 % [facility] MCV 90.8 82.5 - 99.8 fL [facility] MCH 29.3 27.0 - 34.3 pg [facility] MCHC 32.3 32.1 - 35.3 gm/dL [facility] RDW 19.1(H) 11.5 - 15.0 % [facility] Platelet 238 144 - 423 x10(3)/mcL [facility] MPV 7.9 6.8 - 10.8 fL [facility] Blood specimen (specimen) UPPER LIMB STRUCTURE / Unknown 02/28/2017 3:25 PM EDT 02/28/2017 5:46 PM EDT us Yenny Schwab MD HEMATOLOGY ORDERABLES Fin al Result [facility] [address] [place] [address] documented in this encounter Visit Diagnoses Diagnosis Temporal arteritis (HCC) Giant cell arteritis documented in this encounter Orders Lab Orders Without Results Count Last Ordered D ate First Ordered Date OP VENIPUNCTURE CHARGE 1 02/28/2017 documented in this encounter Care Teams Shucker Relationship Specialty Start Date End Date Annalise Oneill MD [address] [place] [address] PCP - General Family Medicine 11/19/16 08/19/18 Garett Holt MD Internal Medicine-Gastroenterology 12/22/12 Ruiz Stokes MD [address] [place] [address] Internal Medicine-Cardiovascular Disease 07/25/14 Yenny Schwab MD 651 [facility] [address] [place] [address] Internal Medicine-Rheumatology 12/11/16 documented as of this encounter
--- OUTSIDE RECORDS SUMMARY | 2024-07-22 16:14 | XMS_ITS | Encounter Summary ---
Author [place] [address] Care Team Providers Care Customer Advisor Specialist Name Role Phone Garett Holt MD Unavailable [phone] Ruiz Stokes MD Unavailable [phone] Annalise Oneill MD Primary Care Provider [phone] Yenny Schwab MD Unavailable [phone] Reason for Visit * Reason Comments Referral referred by Dr Sheila thao Temporal Arteritis Arthritis PMR * Consultation (Urgent) - Closed Specialty Diagnoses / Procedures Referred By Contact Referred To Contact Internal Medicine-Rheumatology / Rheumatology Diagnoses PMR (polymyalgia rheumatica) (HCC) Right sided temporal headache Elevated sed rate Type 2 diabetes mellitus without complication, unspecified 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 Annalise Oneill MD [address] [place] [address] Phone: tel:[phone] fax:[phone] [facility] Rhe[facility] [address] [address] Phone: tel: fax: Referral ID Status Reason Start Date Expiration Date Visits Re quested Visits Authorized [id number] Closed 11/20/2016 11/20/2017 99 99 Encounter Details Date Type Department Care Team (Latest Contact Info) Description 12/11/2016 10:45 AM EDT Office Visit [facility] Rheumatology CV [address] [address] Yenny Schwab MD [address] [address] Arthralgia, unspecified joint (Primary Dx); Myalgia; Joint stiffness; Headache, unspecified headache type; Therapeutic drug monitoring; Vitamin D deficiency Social History Tobacco Use Types Packs/Day Years Used Date Smoking Tobacco: Never Cigarettes 1.5 12 Smokeless Tobacco: Never Comments:quit 25 yrs ago [...] Reading Time Taken Comments Blood Pressure 126/72 12/11/2016 10:43 AM EDT Pulse 59 12/11/2016 10:43 AM EDT Temperature 36.4 ??C (97.5 ??F) 12/11/2016 10:43 AM E DT Respiratory Rate 16 12/11/2016 10:43 AM EDT Oxygen Saturation - - Inhaled Oxygen Concentration - - Weight 117 kg (258 lb) 12/11/2016 10:43 AM EDT Height 162.6 cm (5' 4 ) 12/11/2016 10:43 AM EDT Body Mass Index 44.29 12/11/2016 10:43 AM EDT documented in this encounter Ordered Prescriptions Prescription Sig Dispense Quantity Refills Last Filled Start Date End Date predniSONE (DELTASONE) 20 mg Oral TabletIndications:J oint stiffness,Headache, unspecified headache type Take 3 Tabs by mouth daily. 90 Tab 1 12/11/2016 01/17/2017 documented in this encounter Progress Notes * Yenny Schwab MD - 12/11/2016 10:45 AM EDT Subjective Subjective: Patient ID: Alyssa Jamil is a 61 y.o. female. Chief Complaint Patient presents with ??? Referral referred by Dr Oneill ??? Temporal Arteritis ??? Arthritis PMR HPI The patient comes in for consultation regarding possible PMR and TA. She reports swelling of both ankles, more on the left side. She saw ortho, Dr. Jose Renee, given the cortisol injection to the ankle which helped with the swelling but the symptoms persisted. She had x ray and MRI at the beginning of 2015 which showed arthritis per patient report. The right foot started swelling up about a month ago, similar to the left foot. Prednisone helped. I n the last 2-3 months she has been having pain in the shoulders and hips as well as lower back. Shoulders were hurting more at night and early in the morning. She had problems lifting the arms due to pain in the shoulders. She was taking Aleve or Advil that helped a little bit. Hips bothered her a lot if she would sits for prolonged time. It was hard to move when she was about to get up. Symptoms improved with movement. Worsened in the cold weather as well. She reports stiffness the morning and with prolonged rest. She started getting severe headaches on the right side for the last 3-4 weeks. Headache lasted all day on and off. She was getting dizzy and she would get ringing in the right ear. As well as blurry vision. Dr. Oneill started prednisone taper and was referred to Dr. Chavez for surgery. She had to cancel surgery due to illness. Headache resolved on 60 mg of prednisone but returned after she lowered the dose to 20 mg daily. Itfeels like a pounding headache, nerves keep jumping in there as well. She was given 60 mg of prednisone a little over a week ago, took for 3 days and started taper. Currently on 20 mg daily. Headaches resolved after couple of days on prednisone. Pain in the shoulders and hips resolved after 2 days. She can move them without problems. She stillhas mild stiffness lasting for the few minutes- 5 minutes. Last week she developed cough productive of yellowish phlegm associated with low grade fever. She used cough syrup DM. It helped. She does not have fevers anymore. PCP thought she had allergies. Currently denies pain in the hips or shoulders. Reports lower back pain. Pain on a scale 0-10: prior to starting steroids 9-10, now on 20 mg 12/16 Type of pain: ache Associated symptoms: morning stiffness all day prior to steroids, currently 5 minutes, swelling of the ankles Aggravating factors: cold, rest Alleviating factors: activities, Aleve, Advil, Prednisone Current therapy: prednisone 20 mg Patients past medical, family and social histories were reviewed and updated. There were no changesexcept as noted. Review of Systems Constitutional: Positive for fatigue and fever. HENT: Positive for congestion. Eyes: Positive for visual disturbance. Dry eyes Respiratory: Positive for cough, shortness of breath and wheezing. Cardiovascular: Positive for chest pain. Musculoskeletal: Positive for arthralgias, back pain, joint swelling, myalgias and neck pain. Neurological: Positive for numbness. Psychiatric/Behavioral: Positive for sleep disturbance. All other systems reviewed and are negative. Past Medical History: Diagnosis Date ??? Anemia on iron ??? Arthritis all over ??? Asthma ??? Cancer (HCC) ??? Clotting disorder (HCC) ??? Diabetes mellitus (HCC) 2014 borderline ??? Fibromyalgia ??? Heartburn nausea after eating ??? Hyperlipidemia ??? Hypertension ??? 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 Other and unspecified angina pectoris ??? Shortness of breath ??? Sleep apnea ??? Ulcer (HCC) Past Surgical History: Procedure Laterality Date ??? CARDIAC CATHETERIZATION 04/2015 ??? CHOLECYSTECTOMY 1989 ??? COLONOSCOPY ??? COLONOSCOPY 02/17/2013 Surgeon: Garett Holt MD; Location: [facility]; Service: ??? DENTAL SURGERY upper and lower teeth removed ??? UPPER GASTROINTESTINAL ENDOSCOPY ??? UPPER GASTROINTESTINAL ENDOSCOPY 02/17/2013 Surgeon: Garett Holt MD; Location: [facility]; Service: Allergies Allergen Reactions ??? Amoxil [Amoxicillin] Hives ??? Naproxen Rash ??? Nexium [Esomeprazole Magnesium] [...] by mouth daily. 30 Tab 2 ??? bisoprolol (ZEBETA) 5 mg Oral Tablet Take 5 mg by mouth daily. ??? Blood-Glucose Meter [facility] Kit Please fill with what her ins will cover 1 Kit 0 ??? carvedilol (COREG) 6.25 mg Oral Tablet Take 1 Tab by mouth 2 times daily. with meals 60 Tab 6 ??? docusate sodium (STOOL SOFTENER) 100 mg Oral Capsule Take 1 Cap by mouth 2 times daily. 180 Cap1 ??? ergocalciferol (VITAMIN D) 50,000 unit Oral Capsule Take 1 capsule by mouth once a week. 12 capsule 3 ??? fUROsemide (LASIX) 20 mg Oral Tablet Take 20 mg by mouth every 12 hours. ??? lisinopril (PRINIVIL;ZESTRIL) 10 mg Oral Tablet Take 2 Tabs by mouth daily. 180 Tab 1 ??? loratadine (CLARITIN) 10 mg Oral Tablet Take 1 Tab by mouth daily. 30 Tab 2 ??? metFORMIN (GLUCOPHAGE) 500 mg Oral Tablet Take 1 Tab by mouth daily. with breakfast 90 Tab 1 ??? nortriptyline (PAMELOR) 25 mg Oral Capsule Take 1 Cap by mouth nightly. 30 Cap 2 ??? omeprazole (PRILOSEC) 20 mg Oral Capsule, Delayed Release(E.C.) Take 1 Cap by mouth daily. 90 Cap 1 ??? spironolactone (ALDACTONE) 25 mg Oral Tablet Take 25 mg by mouth 2 times daily. No current facility-administered medications on file prior to visit. Social History Substance Use Topics ??? Smoking status: Never Smoker ??? Smokeless tobacco: Never Used Comment: quit 25 yrs ago ??? Alcohol use No Family History Problem Relation Age of Onset ??? Heart Disease Father ??? Cataracts Father ??? Diabetes Father ??? Cancer Maternal Grandmother ??? Colon Cancer Maternal Grandmother Objective Objective: Vitals: 12/11/16 1043 BP: 126/72 Pulse: 59 Resp: 16 Temp: 97.5 ??F (36.4 ??C) TempSrc: Oral Weight: 258 lb (117 kg) Height: 5' 4 (1.626 m) Body mass index is 44.29 kg/(m^2). Physical Exam Constitutional: She is oriented to person, place, and time. She appears well- developed and well-nourished. HENT: Head: Normocephalic and atraumatic. Mouth/Throat: Oropharynx is clear and moist. Eyes: EOM are normal. Pupils are equal, round, and reactive to light. Neck: Normal range of motion. Cardiovascular: Normal rate and normal heart sounds. No murmur heard. Tenderness to the right temporal artery. Pulses (+) bilaterally. Pulmonary/Chest: Effort normal and breath sounds normal. No respiratory distress. She has no wheezes. Abdominal: Soft. Bowel sounds are normal. She exhibits no distension. There is no tenderness. Musculoskeletal: Normal range of motion. ROM of the shoulders painless. Muscle strength 5/5 upper and lower extremities. No synovitis, no joint tenderness. Crepitus in the knees. Valgus deformity of both knees, more on the left. Swelling and mild warmth of the left ankle. ROM painful and decreased. Neurological: She is alert and oriented to person, place, and time. No cranial nerve deficit. Skin: Skin is warm. No rash noted. Psychiatric: She has a normal mood and affect. Vitals reviewed. Rapid 3: 20.3 Lab Results Component Value Date WBC 9.3 11/19/2016 HGB 11.5 (L) 11/19/2016 HCT 36.4 11/19/2016 MCV 85.6 11/19/2016 PLT 295 11/19/2016 Chemistry Component Value Date/Time NA 140 11/19/2016 0856 K 4.6 11/19/2016 0856 CL 100 11/19/2016 0856 CL 103 05/17/2013 0829 CO2 27 11/19/2016 0856 CO2 25 05/17/2013 0829 BUN 17 11/19/2016 0856 CREATININE 0.76 11/19/2016 0856 GLU 111 (H) 11/19/2016 0856 Component Value Date/Time CALCIUM 10.0 11/19/2016 0856 ALKPHOS 73 11/19/2016 0856 AST 12 11/19/2016 0856 ALT 10 11/19/2016 0856 BILITOT 0.2 06/22/2012 1242 Lab Results Component Value Date CRP 21.93 (H) 11/19/2016 Lab Results Component Value Date TSHREFLEX 1.560 11/19/2016 Lab Results Component Value Date CKTOTAL 50 11/19/2016 TROPT <0.01 05/21/2016 Component Latest Ref Rng & Units 11/19/2016 12/04/2016 8:56 AM 12:00 PM Sed Rate 0 - 30 mm/hr 93 (H) 84 (H) Assessment and Plan: Alyssa was seen today for referral, temporal arteritis and arthritis. Diagnoses and all orders for this visit: Arthralgia, unspecified joint Myalgia Joint stiffness Symptoms suspicious for PMR vs inflammatory arthritis Stiffness and pain in the shoulder and hip girdle in the last 2-3 months Improvement with activities and prednisone Highly elevated inflammatory markers Continue prednisone, increase back to 60 mg daily giving high suspicion for TA and continue that dose for a month Will start tapering then Check additional labs giving left ankle swelling that may suggest inflammatory arthritis. Patients with PMR can have associated late onset seronegative RA - C-Reactive Protein; Future - SSA (Ro) IgG; Future - SSB (La) IgG; Future - Cyclic Citrullinated Peptide AB, IGG; Future - Rheumatoid Factor Quantitative; Future - Antinuclear Antibody Screen; Future - ANCA Screen with Reflex Titer - Ref Lab; Future - MPO/WY-3 (ANCA) Ab; Future - Vitamin D 25 Hydroxy; Future - Hepatitis C Antibody IgM + IgG; Future - Hepatitis B Surface Antigen; Future - predniSONE (DELTASONE) 20 mg Oral Tablet; Take 3 Tabs by mouth daily. Headache, unspecified headache type Right temporal area Tenderness to the right gnosticist Associated with visual blurring TA biopsy cancelled last week due to patient's illness We have called Dr. Chavez's office to put the patient back on schedule. The yield of biopsy the longer the patient is on high doses of steroids might be low but would liketo get the confirmation. Headache resolved on prednisoen 60 mg daily but returned once she lowered the dose to 20 mg daily Increase prednisone to 60 mg daily and start tapering after one month - predniSONE (DELTASONE) 20 mg Oral Tablet; Take 3 Tabs by mouth daily. Therapeutic drug monitoring Vitamin D deficiency Advised to take prednisone after meal Check vitamin D today Ca/ vitamin D daily - Vitamin D 25 Hydroxy; Future Return in about 4 weeks (around 01/10/2017). Addendum 01/06/2017 Records from [facility] received and reviewed. Under care of [facility] [employer] [facility], Dr. 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 Tx with Pratibha bot for lymphedema, debridement of the nails. 09/26/2015- twisted left ankle. - nondisplaced fracture of the lateral malleolus of the left fibula-in pneumatic ankle foot orthosis. [id number] chronic pain. Orthosis changed to Artem style brace and cortisol injection given 10/10/2015. Bracing since while weight bearing. documented in this encounter Miscellaneous Notes * Patient Instructions - Yenny Schwab MD - 12/11/2016 11:26 AM EDT Temporal Arteritis Temporal arteritis, also called giant cell arteritis, is a condition that causes arteries to becomeswollen (inflamed). It usually affects arteries in your head and face, but arteries in any part of the body can become inflamed. Temporal arteritis can cause serious problems, such as bone loss, diabetes, and blindness. CAUSES The cause is unknown. RISK FACTORS ?? Being older than 50. ?? Being a woman. ?? Being . ?? Being of [place], Amharic, [place]ican, [place] Citizen, or Persian ancestry. ?? Having polymyalgia rheumatica (PMR). SIGNS AND SYMPTOMS Some people with temporal arteritis have just one symptom, while other have several symptoms. Most signs and symptoms are related to the head and face. Signs and symptoms may include: ?? Hard or swollen temples (common). Your temples are the flattened area on either side of your forehead. If your temples are swollen, it may hurt to touch them. ?? Pain when combing your hair or when laying your head down. ?? Pain in the jaw when chewing. ?? Pain in the throat or tongue. ?? Problems with your vision, such as sudden loss of vision in one eye, or seeing double. ?? Fever. ?? Fatigue. ?? A dry cough. ?? Pain in the hips and shoulders. ?? Pain in the arms during exercise. ?? Depression. ?? Weight loss. DIAGNOSIS Your health care provider will ask about your symptoms and do a physical exam. He or she may also perform an eye exam and tests, such as: ?? A complete blood count. ?? An erythrocyte sedimentation rate test, also called the sed rate test. ?? A C-reactive protein (CRP) test. ?? A tissue sample (biopsy) test. TREATMENT Temporal arteritis is treated with a type of medicine called a corticosteroid. Vision problems may be treated with additional medicines. You will need to see your health care provider while you are being treated. During follow-up visits, your health care provider will check for problems by: ?? Performing blood tests and bone density tests. ?? Checking your blood pressure and blood sugar. HOME CARE INSTRUCTIONS ?? Take medicines only as directed by your health care provider. ?? Take any vitamins or supplements that your health care provider suggests. These may include vitamin D and calcium, which help keep your bones from becoming weak. ?? Exercise. Talk with your health care provider about what exercises are okay for you to do. Usually exercises that increase your heart rate (aerobic exercise), such as walking, are recommended. Aerobic exercise helps control your blood pressure and prevent bone loss. ?? Follow a healthy diet. Include healthy sources of protein, fruits, vegetables, and whole grains in your diet. Following a healthy diet helps prevent bone damage and diabetes. SEEK MEDICAL CARE IF: ?? Your symptoms get worse. ?? Your fever, fatigue, headache, weight loss, or pain in your jaw gets worse. ?? You develop signs of infection, such as fever, swelling, redness, warmth, and tenderness. SEEK IMMEDIATE MEDICAL CARE IF: ?? Your vision gets worse. ?? Your pain does not go away, even after you take pain medicine. ?? You have chest pain. ?? You have trouble breathing. ?? One side of your face or body suddenly becomes weak or numb. MAKE SURE YOU: ?? Understand these instructions. ?? Will watch your condition. ?? Will get help right away if you are not doing well or get worse. This information is not intended to replace advice given to you by your health care provider. Make sure you discuss any questions you have with your health care provider. Document Released: 06/22/2010 Document Revised: 09/15/2015 Document Reviewed: 10/19/2014 [employer] Patient Education ??2016 [employer] Polymyalgia Rheumatica Polymyalgia rheumatica (also called PMR [...] a specialist in arthritis and inflammatory diseases (larriman helper). TREATMENT The goal of treatment is relief [...] 10/02/2005 Document Revised: 08/11/2013 Document Reviewed: 03/06/2016 Elsevier Interactive Patient Education ??2016 [employer] documented in this encounter Plan of Treatment Upcoming Encounters Date Type Department Care Team (Late st Contact Info) Description 07/29/2024 9:00 AM EST Appointment [facility] [address] [place] [address] Jomar Kim MD [address] [place] [address] documented as of this encounter Goals Goal Patient Goal Type Associated Problems Recent Progress Patient-Stated? Author Blood Pressure < 140/90 Blood Pressure 110/72(2023 2:44 PM EDT) No Rachel Rogers RMA BMI (Calculated) < 30 General 50.9(04/27/20 24 2:44 PM EDT) No Rachel Rogers, RMA Eat better, exercise, reach an ideal body weight General No Ni Clinton, RN HEMOGLOBIN A1C < 7.0 Result Component 5.6( 3:04 PM EST) No Rachel Rogers RMA documented as of this encounter Results * HEPATITIS B SURFACE ANTIGEN (12/11/2016 11:46 AM EDT) Pathologist [facility] Hep Bs Ag Negative Negative [facility] Blood specimen (specimen) 12/11/2016 11:46 AM EDT 12/11/2016 3:25 PM EDT us Yenny Schwab MD CHEMISTRY ORDERABLES Mercedes l Result [facility] [address] [place] [address] * HEPATITIS C ANTIBODY IGM + IGG (12/11/2016 11:46 AM EDT) [facility] Hep C Ab Negative Negative [facility] Blood specimen (specimen) 12/11/2016 11:46 AM EDT 12/11/2016 3:25 PM EDT Yenny Schwab MD IMMUNOLOGY ORDERABLES Fin al Result Performing Organization Address [facility] Phone Number [facility] [address] [place] [address] * VITAMIN D 25 HYDROXY (12/11/2016 11:46 AM EDT) VIT D 25 OH 31.7 30.0 - 120.0 ng/mL [facility] Comment: INTERPRETIVE INFORMATION: ??Vitamin D, 25-Hydroxy <20 ng/mL ? Deficiency 20 - 29 ng/mL ?Insufficiency 30 - 80 ng/mL ?Optimum Level >120 ng/mL ? Possible Toxicity NOTE: For infants and children up to 17 years of age, the optimum level is >=20 ng/mL. This assay accurately quantifies the sum of vitamin D3, 25-Hydroxy and vitamin D2, 25-Hydroxy. Blood specimen (specimen) 12/11/2016 11:46 AM EDT 12/11/2016 3:25 PM EDT Yenny Schwab MD CHEMISTRY ORDERABLES Mercedes l Result Performing Organization Address [facility] de Phone Number [facility] [address] [place] [address] * MPO/WY-3 (ANCA) AB (12/11/2016 11:46 AM EDT) Pathologist [facility] Myeloperox Antibodies, IgG Equivocal [facility] Comment:For Equivocal result s, it is recommended to re-evaluate by drawing another specimen one to three weeks later. Proteinase-3 Antibody Negative [facility] Blood specimen (specimen) 12/11/2016 11:46 AM EDT 12/11/2016 3:25 PM EDT Yenny Schwab MD IMMUNOLOGY ORDERABLES Nicola felipa Result - Final Performing Organization Address [facility] Co de Phone Number [facility] [address] [place] [address] * ANCA SCREEN WITH REFLEX TITER - REF LAB (12/11/2016 11:46 AM EDT) ANCA IgG <1:20 <1:20 [employer] Comment: The ANCA IFA is <1:20; therefore, no further testing will be performed. INTERPRETIVE INFORMATION: Anti-Neutrophil Cyto Ab, IgG Neutrophil Cytoplasmic Antibodies (C-ANCA = granular cytoplasmic staining, P-ANCA = perinuclear staining) are found in the serum of over 90 percent of patients with certain necrotizing systemic vasculitides, and usually in less than 5 percent of patients with collagen vascular disease or arthritis. Performed by [facility], ? [address] [place], [place] [id number] ? [email or web address], Phil Silva MD - Lab. Director Blood specimen (specimen) 12/11/2016 11:46 AM EDT 12/11/2016 5:40 PM EDT Yenny Schwab MD IMMUNOLOGY ORDERABLES Fin al Result Performing Organization Address [facility] de Phone Number [employer] [address] [place] [address] * ANTINUCLEAR ANTIBODY SCREEN (12/11/2016 11:46 AM EDT) Pathologist [facility] TIERRA Screen Negative [facility] Comment: TIERRA samples are screened using an automated EIA assay. ??All samples that screen positive are titered by an IFA method and will include an TIERRA pattern. A titer of < 1:80 is considered clinically insignificant. ??In general, a titer >= 1:160 is considered significant positive. Blood specimen (specimen) UPPER LIMB STRUCTURE / Unknown 12/11/2016 11:46 AM EDT 12/11/2016 3:25 PM EDT us Yenny Schwab MD IMMUNOLOGY ORDERABLES Fin al Result Performing Organization Address [facility] Co de Phone Number [facility] [address] [place] [address] * RHEUMATOID FACTOR QUANTITATIVE (12/11/2016 11:46 AM EDT) RF Quant <10 <=14 IU/mL [facility] Blood specimen (specimen) 12/11/2016 11:46 AM EDT 12/11/2016 3:25 PM EDT us Yenny Schwab MD IMMUNOLOGY ORDERABLES Fin al Result Performing Organization Address [facility] [place] [address] * CYCLIC CITRULLINATED PEPTIDE ANTIBODY, IGG (12/11/2016 11:46 AM EDT) Pathologist [facility] CCP Ab, IgG <0.5 U/mL [facility] Comment: Negative: ??< 5.0 U/mL Positive: ??> or = 5.0 U/mL Blood specimen (specimen) 12/11/2016 11:46 AM EDT 12/11/2016 3:25 PM EDT us Yenny Schwab MD IMMUNOLOGY ORDERABLES Fin al Result Performing Organization Address [facility] [place] [address] * SSB (LA) IGG (12/11/2016 11:46 AM EDT) Pathologist [facility] SSB (La) IgG Negative [facility] Blood specimen (specimen) 12/11/2016 11:46 AM EDT 12/11/2016 3:25 PM EDT us Yenny Schwab MD IMMUNOLOGY ORDERABLES Fin al Result Performing Organization Address [facility] de Phone Number [facility] [address] [place] [address] * SSA (RO) IGG (12/11/2016 11:46 AM EDT) SSA (Ro) IgG Negative [facility] Blood specimen (specimen) 12/11/2016 11:46 AM EDT 12/11/2016 3:25 PM EDT Yenny Schwab MD IMMUNOLOGY ORDERABLES Fin al Result Performing Organization Address [facility] de Phone Number [facility] [address] [place] [address] * C-REACTIVE PROTEIN (12/11/2016 11:46 AM EDT) Pathologist [facility] CRP 1.07 <=5.00 mg/L [facility] Blood specimen (specimen) UPPER LIMB STRUCTURE / Unknown 12/11/2016 11:46 AM EDT 12/11/2016 3:25 PM EDT Yenny Schwab MD CHEMISTRY ORDERABLES Mercedes l Result Performing Organization Address [facility] [place] [address] documented in this encounter Visit Diagnoses Diagnosis Arthralgia, unspecified joint- Primary Myalgia Mylagia and myositis, unspecified Joint stiffness Stiffness of joint, not elsewhere classified, unspecified site Headache, unspecified headache type Therapeutic drug monitoring Encounter for therapeutic drug monitoring Vitamin D deficiency Unspecified vitamin D deficiency documented in this encounter Discontinued Medications Medication Sig Discontinue Reason Start Date End Da te predniSONE (DELTASONE) 20 mg Oral TabletIndications:PMR (polymyalgia rheumatica) (HCC),Right sided temporal headache,Elevated sed rate 3 tab daily for 3 days then 2 tab daily for 3 days then 1 tab daily for 3 days then 1/2 tab daily for 3 days. DELETE-Therapy completed 11/20/2016 12/11/2016 documented as of this encounter Historical Medications * This list may reflect changes made after this encounter. CALCIUM ORAL Take 1 Tab by mouth daily. added in this encounter Care Teams Customer Advisor Specialist Relationship Specialty Start Date End Date Annalise Oneill MD [address] [place], [place] [address], [place] [address] PCP - General Family Medicine 11/19/16 08/19/18 Garett Holt MD Internal Medicine-Gastroenterology 12/22/12 Ruiz Stokes MD [address] [place] [address] Internal Medicine-Cardiovascular Disease 07/25/14 Yenny Schwab MD [address] [facility] [address] [place] [address] Internal Medicine-Rheumatology 12/11/16 documented as of this encounter
--- OUTSIDE RECORDS SUMMARY | 2024-07-22 16:14 | XMS_ITS | Encounter Summary ---
Author Organization [place] [address] Care Team Providers Care Embossing Unit Operator Name Role Phone Garett Holt MD Unavailable [phone] Ruiz Stokes MD Unavailable [phone] Annalise Oneill MD Primary Care Provider Yenny Schwab MD Unavailable [phone] Reason for Referral * DEXA (Routine) - Closed Specialty Diagnoses / Procedures Referred By Contac t Referred To Contact Radiology Diagnoses Age-related osteoporosis without current pathological fracture Procedures DX BONE DENSITY AXIAL SKELETON Yenny Schwab MD [address] [place] [address] Phone: tel: fax: Referral ID Status Reason Start Date Expiration Date Visits Re quested Visits Authorized [id number] Closed 01/17/2017 01/17/2018 1 1 Reason for Visit * DEXA (Routine) - Closed Specialty Diagnoses / Procedures Referred By Contac t Referred To Contact Radiology Diagnoses Age-related osteoporosis without current pathological fracture Procedures DX BONE DENSITY AXIAL SKELETON Yenny Schwab MD [address] [facility] [address] [place] [address] Phone: tel: fax: Referral ID Status Reason Start Date Expiration Date Visits Re quested Visits Authorized [id number] Closed 01/17/2017 01/17/2018 1 1 Encounter Details Date Type Department Care Team (Latest Contact Info) Description 01/30/2017 10:00 AM EDT - 01/30/2017 11:59 PM EDT Hospital Encounter [address] [place] [address] Yenny Schwab MD [address] [place] [address] Age-related osteoporosis without current pathological fracture Discharge Disposition: Home or Self Care Social [...] 9:00 AM EST Appointment [facility] [address] [place] [id number] Jomar Kim MD [address] [place] [address] documented as of this encounter Goals [...] Procedure Name Priority Date/Time Associated Diagnosis Comments DX BONE DENSITY AXIAL SKELETON Routine 01/30/2017 10:35 AM EDT Age-related osteoporosis without current pathological fracture documented in this encounter Results * DX BONE DENSITY AXIAL SKELETON (01/30/2017 10:35 AM EDT) Anatomical Region Laterality Modality Dexa Scan 01/30/2017 Narrative 02/01/2017 3:52 PM EDT Indication: The patient is presently being monitored while on treatment and requires a bone density assessment. Study was performed on iApp[employer] 5. Bone Density: Region ?BMD ? T-score [...] TH value. Reported by: Amy Guerin PA-C, [facility] on 01/30/2017 3:24:00 PM. Yenny Schwab MD IMG DEXA ORDERABLES Final Result documented in this encounter Visit Diagnoses Diagnosis Age-related osteoporosis without current pathological fracture Senile osteoporosis documented in this encounter Care Teams Embossing Unit Operator Relationship Specialty Start Date End Date Annalise Oneill MD [address] [place] [address] PCP - General Family Medicine 11/19/16 08/19/18 Garett Holt MD Internal Medicine-Gastroenterology 12/22/12 Ruiz Stokes MD [address] [place], [place] [id number] Internal Medicine-Cardiovascular Disease 07/25/14 Yenny Schwab MD [address] [facility] [address] [place] [address] Internal Medicine-Rheumatology 12/11/16 documented as of this encounter
--- OUTSIDE RECORDS SUMMARY | 2024-07-22 16:14 | XMS_ITS | Encounter Summary ---
Author Organization [place] [address] Care Team Providers Care Insulator Helper Name Role Phone Garett Holt MD Unavailable [phone] Ruiz Stokes MD Unavailable [phone] Annalise Oneill MD Primary Care Provider [phone] Yenny Schwab MD Unavailable [phone] Reason for Visit * Auth/Cert/Inpt Specialty Diagnoses / Procedures Referred By Contac t Referred To Contact Diagnoses Intractable chronic cluster headache Intractable chronic cluster headache [G44.021] Procedures IL TEMPORAL ARTERY LIGATN OR BX RIGHT TEMPORAL ARTERY BIOPSY Referral ID Status Reason Start Date Expiration Date Visits Re quested Visits Authorized [id number] 1 1 Encounter Details Date Type Department Care Team (Late st Contact Info) Description 01/06/2017 12:15 PM EDT - 01/06/2017 12:50 PM EDT Surgery [facility] [address] [place] [address] Christa Chavez MD [address] [place] [address] TEMPORAL ARTERY BIOPSY Surgery Details Date/Time Status Location OR Service Patient Class Case Class Case Type Trauma Case? 01/06/2017 12:15 PM Posted [facility]- XI General Same Day Surgery N/A Panel 1 Procedure LRB Anes Op Region Wound Class Comments TEMPORAL ARTERY BIOPSY Right Monitored Anesthesia Care Clean RIGHT TEMPORAL ARTERY BIOPSY Surgeon Surgeon Role Service Panel Christa Chavez MD Primary General 1 documented in this encounter Social History [...] Sign Reading Time Taken Comments Blood Pressure 111/79 01/06/2017 3:01 PM EDT Pulse 56 01/06/2017 3:01 PM EDT Temperature 36.2 ??C (97.1 ??F) 01/06/2017 3:01 PM ED T Respiratory Rate 20 01/06/2017 3:01 PM EDT Oxygen Saturation 100% 01/06/2017 3:01 PM EDT Inhaled Oxygen Concentration - - Weight 114.3 kg (251 lb 14.4 oz) 01/06/2017 9:34 AM EDT Height 162.6 cm (5' 4 ) 01/06/2017 9:34 AM EDT Body Mass Index 43.24 01/06/2017 9:34 AM EDT documented in this encounter Discharge Instructions * Discharge Instructions* hCrista Chavez MD - 01/06/2017 2:32 PM EDT +++++++++++++++++++++++++++++++++++++++++++++++++++++++++++++++++++ [facility] Discharge Instructions - Following Anesthesia We [...] if you cannot correctly feel the temperature. ?? If you have questions or concerns regarding your anesthesia experience, please call our office at . Get Well Soon! [facility] +++++++++++++++++++++++++++++++++++++++++++++++++++++++++++++++++++ Call Surgeon if you have: ?? Temperature greater than 100.4 ?? Persistent nausea and vomiting ?? Severe uncontrolled pain ?? Redness, tenderness, or signs of infection (pain, swelling, redness, odor or green/yellow discharge around the site) ?? Difficulty breathing, headache or visual disturbances ?? Hives ?? Persistent dizziness or light-headedness ?? Extreme fatigue ?? Any other questions or concerns you may have after discharge In an emergency, call 911 or go to an Emergency Department at a nearby hospital It is important to bring a complete, current list of your medications to any medical appointments or hospitalizations. 1. It is OK to shower. No soaking/swimming 2. Activity as tolerated. It is OK to use stairs, and lift items as needed. 3. No driving if experiencing significant pain at the incisions sites, or if taking pain medication. 4. Diet as tolerated. Clear liquids if experiencing any nausea or vomiting. 5. Walk! 6. Please call [phone] for a follow-up appointment in 7 to 14 days. documented in this encounter Medications at Time [...] 01/06/2017 02/05/2017 documented as of this encounter Ordered Prescriptions Prescription Sig Dispense Quantity Refills Last Filled Start Date End Date oxyCODONE-acetamin ophen (PERCOCET) 5-325 mg Oral Tablet Take 1-2 Tabs by mouth every 4 hours as needed for up to 30 days. 20 Tab 01/06/2017 02/05/2017 documented in this encounter Discharge Disposition Disposition Code Departure Means Destination Home or Self [facility] documented in this encounter H&P Notes * Austin Rodriguez NP - 01/06/2017 9:32 AM EDT H&P Update Recent History and Physical reviewed. Patient was examined and Pre-op information reviewed. NO SIGNIFICANT CHANGES FOUND Source Note - Christa Chavez MD - 12/26/2016 10:00 AM EDT Subjective Subjective: Patient ID: Alyssa Campos is a 61 y.o. female. Chief Complaint Patient presents with ??? Other discuss temporal artery biopsy HPI Patients past medical, family and social histories were reviewed and updated. There were no changesexcept as noted. Recent known to me. Here to discuss scheduling surgery. Recent surgery was canceled. The patient lo 61-year-old female who has chronic headaches, and other constitutional symptoms. She is here to discuss a possible temporal artery biopsy. Allergies Allergen Reactions ??? Amoxil [Amoxicillin] Hives ??? Naproxen Rash ??? Nexium [Esomeprazole Magnesium] Hives and Rash Blisters in Mouth Current Outpatient Prescriptions: ??? amLODIPine (NORVASC) 10 mg Oral Tablet, Take 1 Tab by mouth daily., Disp: 90 Tab, Rfl: 1 ??? Aspirin (ASPIRIN) 81 mg, Take 1 Tab by mouth daily., Disp: 100 Tab, Rfl: 4 ??? atorvastatin (LIPITOR) 20 mg Oral Tablet, Take 1 Tab by mouth daily., Disp: 30 Tab, Rfl: 2 ??? bisoprolol (ZEBETA) 5 mg Oral Tablet, Take 5 mg by mouth daily., Disp: , Rfl: ??? Blood-Glucose Meter Misc Kit, Please fill with what her ins will cover, Disp: 1 Kit, Rfl: 0 ??? CALCIUM ORAL, Take by mouth daily., Disp: , Rfl: ??? carvedilol (COREG) 6.25 mg Oral Tablet, Take 1 Tab by mouth 2 times daily. with meals, Disp: 60Tab, Rfl: 6 ??? docusate sodium (STOOL SOFTENER) 100 mg Oral Capsule, Take 1 Cap by mouth 2 times daily., Disp:180 Cap, Rfl: 1 ??? ergocalciferol (VITAMIN D) 50,000 unit Oral Capsule, Take 1 capsule by mouth once a week., Disp: 12 capsule, Rfl: 3 ??? fUROsemide (LASIX) 20 mg Oral Tablet, Take 20 mg by mouth every 12 hours., Disp: , Rfl: ??? lisinopril (PRINIVIL;ZESTRIL) 10 mg Oral Tablet, Take 2 Tabs by mouth daily., Disp: 180 Tab, Rfl: 1 ??? loratadine (CLARITIN) 10 mg Oral Tablet, Take 1 Tab by mouth daily., Disp: 30 Tab, Rfl: 2 ??? metFORMIN (GLUCOPHAGE) 500 mg Oral Tablet, Take 1 Tab by mouth daily. with breakfast, Disp: 90 Tab, Rfl: 1 ??? nortriptyline (PAMELOR) 25 mg Oral Capsule, Take 1 Cap by mouth nightly., Disp: 30 Cap, Rfl: 2 ??? omeprazole (PRILOSEC) 20 mg Oral Capsule, Delayed Release(E.C.), Take 1 Cap by mouth daily., Disp: 90 Cap, Rfl: 1 ??? predniSONE (DELTASONE) 20 mg Oral Tablet, Take 3 Tabs by mouth daily., Disp: 90 Tab, Rfl: 1 ??? spironolactone (ALDACTONE) 25 mg Oral Tablet, Take 25 mg by mouth 2 times daily., Disp: , Rfl: Patient Active Problem List Diagnosis ??? Esophageal [...] History of endometrial cancer ??? Chronic headache Social History Social History ??? Marital status: Spouse name: N/A ??? Number of children: 2 ??? Years of education: N/A Occupational History ??? disabled Social History Main Topics ??? Smoking status: Never Smoker ??? Smokeless tobacco: Never Used Comment: quit 25 yrs ago ??? Alcohol use No ??? Drug use: No ??? Sexual activity: Yes Partners: Male control/ protection: Post-menopausal Other Topics Concern ??? Not on file Social History Narrative Review of Systems Constitutional: Negative for activity change, appetite change, chills and fever. HENT: Negative for congestion, nosebleeds and sore throat. Eyes: Negative for redness and visual disturbance. Respiratory: Negative for cough, shortness of breath and wheezing. Cardiovascular: Negative for chest pain, palpitations and leg swelling. Gastrointestinal: Negative for abdominal distention, abdominal pain and blood in stool. Genitourinary: Negative for dysuria, hematuria and urgency. Musculoskeletal: Negative for arthralgias, back pain and neck pain. Skin: Negative for color change, pallor and rash. Neurological: Negative for tremors, seizures and syncope. Hematological: Negative for adenopathy. Does not bruise/bleed easily. Objective Objective: Vitals: 12/26/16 1031 BP: 134/62 Pulse: 56 Weight: 259 lb 6.4 oz (117.7 kg) Height: 5' 4 (1.626 m) Body mass index is 44.53 kg/(m^2). Physical Exam Constitutional: She is oriented to person, place, and time. She appears well- developed and well-nourished. HENT: Head: Normocephalic and atraumatic. No adenopathy present Eyes: Conjunctivae are normal. Pupils are equal, round, and reactive to light. Neck: Normal range of motion. Cardiovascular: Normal rate and regular rhythm. Pulmonary/Chest: Effort normal and breath sounds normal. Abdominal: Soft. Bowel sounds are normal. Musculoskeletal: Normal range of motion. Neurological: She is alert and oriented to person, place, and time. Skin: Skin is warm. Psychiatric: She has a normal mood and affect. Her behavior is normal. Thought content normal. Assessment and Plan: Impression: Possible arteritis, headaches ?? Plan: Proceed to the operating for a right temporal artery biopsy No Follow-up on file. documented in this encounter Procedure Notes * Christa Chavez MD - 01/06/2017 3:29 PM EDT DATE OF OPERATION: 01/06/2017 PREOPERATIVE DIAGNOSIS: Intractable headache. POSTOPERATIVE DIAGNOSIS: Intractable headache. PROCEDURE PERFORMED: Right temporal artery biopsy. ESTIMATED BLOOD LOSS: Minimal. ANESTHESIA: MAC plus local. SPECIMENS: Right temporal artery. DETAILS OF PROCEDURE: The patient was taken to the operating room and placed supine on the operating table. After induction of MAC anesthesia, the patient's right temporal artery was prepped and draped in standard surgical fashion. Next, the Doppler device was utilized to locate the artery, and this area was marked. Next, this was anesthetized with 1% Marcaine. A sharp scalpel was utilized to incise the skin in is very. This was deepened to the dermal layer. Dissection carried down carefully with sharp dissection utilizing Metzenbaum scissors. The temporal artery was identified, and clamped on either side with mosquito clamps. The segment between this was divided and passed off the table asa specimen. The ends of the temporal artery were then tied with 3-0 silk sutures. Hemostasis obtained with Bovie cautery. A temporal artery was passed to table as a specimen. Deep tissue closed with 3-0 Vicryl sutures, skin edges were reapproximated using 4-0 Monocryl subcutaneous stitch. At the end the case, all needle, sponge and instrument counts, instrument counts were correct. The patient tolerated the procedure well and was transferred to the recovery room, awake, alert and in stable condition. Nito Chavez M.D. By: Evelia Job ID: [id number] Doc ID: [id number] * Christa Chavez MD - 01/06/2017 2:31 PM EDT [facility] OPERATIVE/PROCEDURE NOTE Alyssa Campos January 06, 2017 Body mass index is 43.24 kg/(m^2). There are no active hospital problems to display for this patient. PRE-OP DIAGNOSIS: Intractable chronic cluster headache [G44.021] POST-OP DIAGNOSIS: Intractable chronic cluster headache [G44.021] PROCEDURE(S): Procedure(s): RIGHT TEMPORAL ARTERY BIOPSY SURGEON(S): Surgeon(s) and Role: * Christa Chavez MD - Primary OR STAFF: Specimen Preparation Assistant: Molly Beauchamp RN; Lyssa Rm RN Scrub Brown: Estrella Blank, MARTHA; Kellie Golden RN Scrub Assist: Alex Winters CSA ANESTHESIA: Monitored Anesthesia Care SPECIMENS: right temporal artery ESTIMATED BLOOD LOSS: 5 mL FINDINGS: DISPOSITION/POST PROC COURSE: Stable to Post Anesthesia Care Unit M Nito Chavez MD Date: 01/06/2017 documented in this encounter Nursing Notes * Lorin Nice RN - 01/06/2017 3:28 PM EDT Patient and patient's responsible constitution party given discharge instructions, verbalized understanding and agreed with treatment plan. 1 printed rx for percocet given. Instructed not to drink alcohol, drive or take tylenol while taking narcotic. Patient drinking without difficulty. Patient wheeled out of [facility] in stable condition with visitor. * Yamini Chicas RN - 01/06/2017 10:03 AM EDT Pt had 3 unsuccessful iv attempts by 2 different RNs prior to IV being placed in right upper arm. documented in this encounter Plan of Treatment Upcoming Encounters Date Type Department Care Team (Late st Contact Info) Description 07/29/2024 9:00 AM EST Appointment [facility] [address] [place], [place] [address] Jomar Kim MD [address] [place] [address] documented as of this [...] Priority Date/Time Associated Diagnosis Comments SCANNED EKG 01/10/2017 1:46 PM EDT PATHOLOGY TISSUE REPORT Routine 01/06/2017 2:33 PM EDT TEMPORAL ARTERY BIOPSY 01/06/2017 1:38 PM EDT Intractable chronic cluster headache GLUCOSE METER POC Routine 01/06/2017 9:3 6 AM EDT documented in this encounter Results * SCANNED EKG (01/10/2017 1:46 PM EDT) Anatomical Region Laterality Modality Other 01/10/2017 1:46 PM EDT us Unknown Unknown IMG ECG ORDERABLES Final Result * PATHOLOGY TISSUE REPORT (01/06/2017 2:33 PM EDT) Surgical Pathology Report ? PATIENT NAME:ALYSSA CAMPOS ?Surgical Pathology Report ? Accession Number ?Collected Date/Time ? Received Date/Time ? [id number] ? 01/06/17 14:33 EDT ?01/07/17 08:24 EDT ? Diagnosis ? Right temporal artery, biopsy: ? - Temporal artery with no significant pathologic abnormality. ? - No evidence of arteritis. ? AYAKA CHLOE ? (Electronically signed by) ? Verified: 01/08/2017 ? [facility] ? Clinical Information ? Intractable chronic cluster headache [G44.021] ? Routine ? Gross Description ? Received in formalin labeled with the patients name and right temporal ? artery biopsy is a single 0.3 x 0.3 x 0.2 cm truong tissue fragment. A lumen ? is not identified. Submitted in ? toto in one cassette. /BC ? MMY/MMD ? Microscopic Description ? Microscopic examination is performed and the findings corroborate the ? diagnosis. [facility] 01/06/2017 2:33 PM EDT us M Nito Chavez MD PATHOLOGY ORDERABLES Final Resul t [facility] [address] [place] [address] * (ABNORMAL) GLUCOSE METER POC (01/06/2017 9:36 AM EDT) [facility] Signature Glucose Meter POC 128(H) 70 - 100 mg/dL [facility] POINT OF CARE LABORATORY Sample Type Capillary [facility] Patient Status Non-Critical Patient [facility] POINT OF CARE LABORATORY Blood specimen (specimen) 01/06/2017 9:36 AM EDT 01/06/2017 9:36 AM EDT [facility] Nito Chavez MD POINT OF CARE TEST ORDERABLES Fi nal Result [facility] POINT OF CARE LABORATORY [address] [place] [address] documented in this encounter Visit Diagnoses Diagnosis Intractable chronic cluster headache Chronic cluster headache documented in this encounter Administered Medications Inactive Administered Medications - up to 1 most recent administrations Medication Order MAR Action Action Date Dose Rate Site lactated ringers infusion Intravenous, at 100 mL/hr, PREPROCEDURE CONTINUOUS, Starting on Fri01/06/17 at 0931, Until Fri01/06/17 at 1929, To be given in SDS/Pre-op Holding Area, Pre-op (Holding/SDS Meds) New Bag 01/06/2017 1:33 PM EDT lidocaine 1% 10 mg/mL (1 %) injection ONCE PRN, 1 dose, Starting on Fri01/06/17 at 1432, Until Fri01/06/17 at 1432, Intra-op Given 01/06/2017 2:32 PM EDT 3 mL metoprolol (LOPRESSOR) tablet 25 mg 25 mg, Oral, PREPROCEDURE, 1 dose, Starting on Fri01/06/17 at 0931, Until Fri01/06/17 at 1929, Pre-Operative Beta Dionisio, Administer Metoprolol with a sip of water IF PATIENT HAS NOT TAKEN OWN PRESCRIPTION OF BETA DIONISIO WITHIN 24 HOURS PRIOR TO SURGERY., Pre-op (Holding/SDS Meds) documented in this encounter Active and Recently Administered Medications Times are shown in EDT. Scheduled Medication Order 01/04/2017 01/05/2017 01/06/2017 levOFLOXacin in dextrose 5% (LEVAQUIN) IVPB 500 mg (COMPLETED) 500 mg, Intravenous, ONCE PREPROCEDURE, 1 dose, On Fri01/06/17 at 1315, Administer over 60 Minutes, Administer 60 minutes pre-op, Pre-op (Antibiotic) 1338 (Given - Provid er: Mercy Lofton MD) PRN Medication Order 01/04/2017 01/05/2017 01/06/2017 lactated ringers infusion Intravenous, at 100 mL/hr, PREPROCEDURE CONTINUOUS, Starting on Fri01/06/17 at 0931, Until Fri01/06/17 at 1929, To be given in SDS/Pre-op Holding Area, Pre-op (Holding/SDS Meds) 1004 (New Bag - Prov ider: Yamini Chicas RN)1333 (New Bag - Provider: Mercy Lofton MD)1430 (Anesthesia Volume Adjustment - Provider: Mercy Lofton MD)1511 (Stopped - Provider: Lorin Nice RN) lidocaine 1% 10 mg/mL (1 %) injection (CANCELED) ONCE PRN, 1 dose, Starting on Fri01/06/17 at 1432, Until Fri01/06/17 at 1432, Intra-op 1432 (Given - Provid er: Christa Chavez MD) metoprolol (LOPRESSOR) tablet 25 mg 25 mg, Oral, PREPROCEDURE, 1 dose, Starting on Fri01/06/17 at 0931, Until Fri01/06/17 at 1929, Pre-Operative Beta Dionisio, Administer Metoprolol with a sip of water IF PATIENT HAS NOT TAKEN OWN PRESCRIPTION OF BETA DIONISIO WITHIN 24 HOURS PRIOR TO SURGERY., Pre-op (Holding/SDS Meds) 1004 (Not Given - Pr ovider: Yamini Chicas RN - Reason: Prior to Arrival) documented in this encounter Orders Medications Ordered That Edwin ht Not Have Been Administered Count Last Ordered Date First Ordered Date levOFLOXacin in dextrose 5% (LEVAQUIN) IVPB 500 mg 1 01/06/2017 metoprolol (LOPRESSOR) tablet 25 mg 1 01/06 Lab Orders Without Results Count Last Ordered D ate First Ordered Date PATHOLOGY TISSUE REQUEST 1 01/06/2017 documented in this encounter Care Teams Insulator Helper Relationship Specialty Start Date End Date Annalise Oneill MD [address] [place] [address] PCP - General Family Medicine 11/19/16 08/19/18 Garett Holt MD Internal Medicine-Gastroenterology 12/22/12 Ruiz Stokes MD [address] [place] [id number] Internal Medicine-Cardiovascular Disease 07/25/14 Yenny Schwab MD [address] [facility] Building [address] [place] [address] Internal Medicine-Rheumatology 12/11/16 documented as of this encounter
--- OUTSIDE RECORDS SUMMARY | 2024-07-22 16:14 | XMS_ITS | Encounter Summary ---
Author Organization [place] [address] Care Team Providers Care Chlorine Cells Operator Name Role Phone Garett Holt MD Unavailable [phone] Ruiz Stokes MD Unavailable [phone] Annalise Oneill MD Primary Care Provider [phone] Yenny Schwab MD Unavailable [phone] Encounter Details Date Type Department Care Team (Latest Contact Info) Description 12/11/2016 11:45 AM EDT - 12/11/2016 11:59 PM EDT Hospital Encounter EDG LAB [facility] [address] [facility] [address] [place] [address] Joint stiffness; Vitamin D deficiency Discharge Disposition: Home or Self Care Social [...] 9:00 AM EST Appointment [facility] [address] [place] [address] Jomar Kim MD [address] [place] [address] Scheduled Orders Name Type Priority Associated Diagnoses Orde r Schedule OP VENIPUNCTURE CHARGE Lab Timed Joint stiffness Vitamin D deficiency One Time for 1 Occurrences starting 12/11/2016 until 12/11/2016 documented as of this encounter Goals Goal Patient Goal Type Associated Problems Recent Progress Patient-Stated? Author Blood Pressure < 140/90 Blood Pressure 110/72(2023 2:44 PM EDT) No Rachel Rogers, RMA BMI (Calculated) < 30 General 50.9(04/27/20 24 2:44 PM EDT) No Rachel Rogers, RMA Eat better, exercise, reach an ideal body weight General No Ni Clinton RN HEMOGLOBIN A1C < 7.0 Result Component 5.6( 3:04 PM EST) No Rachel Rogers RMA documented as of this encounter Procedures Procedure Name Priority Date/Time Associated Diagnosis Comments SSB (LA) IGG Routine 12/11/2016 11:46 AM EDT Joint stiffness MPO/VT-3 (ANCA) AB Routine 12/11/2016 11 :46 AM EDT Joint stiffness SSA (RO) IGG Routine 12/11/2016 11:46 AM EDT Joint stiffness CYCLIC CITRULLINATED PEPTIDE ANTIBODY, IGG Routine 12/11/2016 11:46 AM EDT Joint stiffness ANTI-NEUTROPHIL CYTOPLASMIC ANTIBODY IGG-REF LAB Routine 12/11/2016 11:46 AM EDT Joint stiffness VITAMIN D 25 HYDROXY Routine 12/11/2016 11:46 AM EDT Joint stiffness Vitamin D deficiency HEPATITIS C ANTIBODY IGM + IGG Routine 12/11/2016 11:46 AM EDT Joint stiffness HEPATITIS B SURFACE ANTIGEN Routine 12/11/2016 11:46 AM EDT Joint stiffness RHEUMATOID FACTOR QUANTITATIVE Routine 12/11/2016 11:46 AM EDT Joint stiffness C-REACTIVE PROTEIN Routine 12/11/2016 11 :46 AM EDT Joint stiffness ANTINUCLEAR ANTIBODIES (TIERRA) SCREEN BY PAIGE W/ REFLEX TO IFA Routine 12/11/2016 11:46 AM EDT Joint stiffness documented in this encounter Results * VITAMIN D 25 HYDROXY (12/11/2016 11:46 AM EDT) [facility] VIT D 25 OH 31.7 30.0 - 120.0 ng/mL [facility] Comment: INTERPRETIVE INFORMATION: ??Vitamin D, 25-Hydroxy <20 [...] ORDERABLES Mercedes l Result Performing Organization Address City/State/[facility] Co de Phone Number [facility] [address] [place] [address] * SSB (LA) IGG (12/11/2016 11:46 AM EDT) [facility] SSB (La) IgG Negative [facility] Blood specimen (specimen) 12/11/2016 11:46 AM EDT 12/11/2016 3:25 PM EDT Yenny Schwab MD IMMUNOLOGY ORDERABLES Fin al Result Performing Organization Address [facility] Co de Phone Number [facility] [address] [place] [address] * SSA (RO) IGG (12/11/2016 11:46 AM EDT) [facility] SSA (Ro) IgG Negative [facility] Blood specimen (specimen) 12/11/2016 11:46 AM EDT 12/11/2016 3:25 PM EDT Yneny Schwab MD IMMUNOLOGY ORDERABLES Fin al Result Performing Organization Address [facility] [place] [address] * RHEUMATOID FACTOR QUANTITATIVE (12/11/2016 11:46 AM EDT) [facility] RF Quant <10 <=14 IU/mL [facility] Blood specimen (specimen) 12/11/2016 11:46 AM EDT 12/11/2016 3:25 PM EDT Yenny Schwab MD IMMUNOLOGY ORDERABLES Fin al Result Performing Organization Address [facility] Co de Phone Number [facility] [address] [place] [address] * MPO/VT-3 (ANCA) AB (12/11/2016 11:46 AM EDT) [facility] Myeloperox Antibodies, IgG Equivocal [facility] Comment:For Equivocal result s, it is recommended to re-evaluate by drawing another specimen one to three weeks later. Proteinase-3 Antibody Negative [facility] Blood specimen (specimen) 12/11/2016 11:46 AM EDT 12/11/2016 3:25 PM EDT us Yenny Schwab MD IMMUNOLOGY ORDERABLES Nicola felipa Result - Final Performing Organization Address [facility] [place] [address] * HEPATITIS C ANTIBODY IGM + IGG (12/11/2016 11:46 AM EDT) Hep C Ab Negative Negative [facility] Blood specimen (specimen) 12/11/2016 11:46 AM EDT 12/11/2016 3:25 PM EDT us Yenny Schwab MD IMMUNOLOGY ORDERABLES Fin al Result Performing Organization Address [facility] [place] [address] * HEPATITIS B SURFACE ANTIGEN (12/11/2016 11:46 AM EDT) Hep Bs Ag Negative Negative [facility] Blood specimen (specimen) 12/11/2016 11:46 AM EDT 12/11/2016 3:25 PM EDT us Yenny Schwab MD CHEMISTRY ORDERABLES Mercedes l Result Performing Organization Address [facility] [place] [address] * CYCLIC CITRULLINATED PEPTIDE ANTIBODY, IGG (12/11/2016 11:46 AM EDT) CCP Ab, IgG <0.5 U/mL [facility] Comment: Negative: ??< 5.0 U/mL Positive: ??> or = 5.0 U/mL Blood specimen (specimen) 12/11/2016 11:46 AM EDT 12/11/2016 3:25 PM EDT us Yenny Schwab MD IMMUNOLOGY ORDERABLES Fin al Result Performing Organization Address [facility] de Phone Number [facility] [address] [place] [address] * C-REACTIVE PROTEIN (12/11/2016 11:46 AM EDT) [facility] CRP 1.07 <=5.00 mg/L [facility] Blood specimen (specimen) UPPER LIMB STRUCTURE / Unknown 12/11/2016 11:46 AM EDT 12/11/2016 3:25 PM EDT Yenny Schwab MD CHEMISTRY ORDERABLES Mercedes l Result Performing Organization Address [facility] Phone Number [facility] [address] [place] [address] * ANTINUCLEAR ANTIBODY SCREEN (12/11/2016 11:46 AM EDT) [facility] TIERRA Screen Negative [facility] Comment: TIERRA samples are screened using [...] Fin al Result Performing Organization Address [facility] de Phone Number [facility] [address] [place] [address] * ANCA SCREEN WITH REFLEX TITER - REF LAB (12/11/2016 11:46 AM EDT) [facility] ANCA IgG <1:20 <1:20 [employer] Comment: The ANCA IFA is <1:20; [...] collagen vascular disease or arthritis. Performed by [employer], ? [address] [place] [address] ? [email or web address], Phil Silva MD - Lab. Director Blood specimen (specimen) 12/11/2016 11:46 AM EDT 12/11/2016 5:40 PM EDT us Yenny Schwab MD IMMUNOLOGY ORDERABLES Fin al Result [employer] [address] [place] [address] documented in this encounter Visit Diagnoses Diagnosis Joint stiffness Stiffness of joint, not elsewhere classified, unspecified site Vitamin D deficiency Unspecified vitamin D deficiency documented in this encounter Care Teams Chlorine Cells Operator Relationship Specialty Start Date End Date Annalise Oneill MD [address] [place] [phone] PCP - General Family Medicine 11/19/16 08/19/18 Garett Holt MD Internal Medicine-Gastroenterology 12/22/12 Ruiz Stokes MD [address] [place] [address] Internal Medicine-Cardiovascular Disease 07/25/14 Yenny Schwab MD [address] [facility] [address] [place] [address] Internal Medicine-Rheumatology 12/11/16 documented as of this encounter
--- OUTSIDE RECORDS SUMMARY | 2024-07-22 16:14 | XMS_ITS | Encounter Summary ---
Author Organization [place] [address] Care Team Providers Care Credit Officer Name Role Phone Garett Holt MD Unavailable [phone] Ruiz Stokes MD Unavailable [phone] Annalise Oneill MD Primary Care Provider Yenny Schwab MD Unavailable [phone] Reason for Visit * Reason Comments Post-Operative Exam pt had biopsy done on head, she saw Dr Chavez this morning and was told to follow up with PCP, was told to get referral to cardiology due to brachycardia and some dizziness, falling asleep. Back Pain c/o back pain, throu ghout shoulders. Hip Pain c/o R hip pain, wors e in the mornings, had fall right before surgery. Encounter Details Date Type Department Care Team (Late st Contact Info) Description 01/16/2017 1:30 PM EDT Office Visit [facility] [address] [place] [address] Annalise Oneill MD [address] [place] [phone] Myalgia (Primary Dx); Elevated sed rate; Type 2 diabetes mellitus without complication, unspecified skilled nursing insulin use status Social History Tobacco Use Types Packs/Day Years [...] Reading Time Taken Comments Blood Pressure 110/80 01/16/2017 1:42 PM EDT Pulse 76 01/16/2017 1:42 PM EDT Temperature 36.3 ??C (97.3 ??F) 01/16/2017 1:42 PM ED T Respiratory Rate 14 01/16/2017 1:42 PM EDT Oxygen Saturation - - Inhaled Oxygen Concentration - - Weight 114.9 kg (253 lb 6.4 oz) 01/16/2017 1:42 PM EDT Height 162.6 cm (5' 4 ) 01/16/2017 1:42 PM EDT Body Mass Index 43.5 01/16/2017 1:42 PM EDT documented in this encounter Progress Notes * Annalise Oneill MD - 01/16/2017 1:30 PM EDT Subjective Alyssa Jamil is a 61 y.o. female Subjective Chief Complaint Patient presents with ??? Post-Operative Exam pt had biopsy done 01/03 on head, she saw Dr Chavez this morning and was told to follow up with PCP, was told to get referral to cardiology due to brachycardia and some dizziness, falling asleep. ??? Back Pain c/o back pain, throughout shoulders. ??? Hip Pain c/o R hip pain, worse in the mornings, had fall right before surgery. She has had her temporal artery bx which was normal Has appt with rheumatology tomorrow continues to have pain in her shoulders or hips Checking blood sugars once every 2 days-- average 187-203 Patient states she was told her HR was low for her surgery-- scanned EKG showing rate 72 Review of Systems Constitutional: Negative for activity change, appetite change, fatigue and fever. Respiratory: Negative for chest tightness, shortness of breath and wheezing. Cardiovascular: Positive for chest pain. Negative for palpitations and leg swelling. Gastrointestinal: Negative for diarrhea, nausea and vomiting. Musculoskeletal: Positive for back pain. Neurological: Positive for dizziness. Negative for headaches. Objective Objective Visit Vitals ??? BP 110/80 (BP Location: Left arm, Patient Position: Sitting) ??? Pulse 76 ??? Temp 97.3 ??F (36.3 ??C) (Temporal) ??? Resp 14 ??? Ht 5' 4 (1.626 m) ??? Wt 253 lb 6.4 oz (114.9 kg) ??? BMI 43.5 kg/m2 Physical Exam Constitutional: She is oriented to [...] no mass. There is no tenderness. Musculoskeletal: Bilateral upper arm and quadricept tenderness Neurological: She is alert and oriented to person, place, and time. She has normal reflexes. Skin: Skin is warm and dry. Psychiatric: She has a normal mood and affect. Judgment normal. Vitals reviewed. Assessment and Plan Alyssa was seen today for post-operative exam, back pain and hip pain. 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 Patient and Daughter was educated regarding the diagnosis, medication/treatment, goals, self-management tools and instructions based on their care plan. They verbalized full understanding of the education given on the After Visit Summary [AVS] for today's visit. They received a copy of the AVS in writing. A new medicine was not prescribed on this visit. Annalise Oneill MD documented in this encounter Plan of Treatment Upcoming Encounters Date Type Department Care Team (Late st Contact Info) Description 07/29/2024 9:00 AM EST Appointment [facility] [address] [place], [place] [id number] Jomar Kim MD [address] [place] [address] documented as of this encounter [...] as of this encounter Results * (ABNORMAL) BASIC METABOLIC PANEL (01/16/2017 2:25 PM EDT) Sodium 142 136 - 145 mmol/L [facility] Potassium 4.6 3.5 - 5.0 mmol/L [facility] Chloride 101 98 - 107 mmol/L [facility] Total CO2 26 22 - 29 mmol/L [facility] Anion Gap 15 7 - 16 mmol/L [facility] Calcium 10.4(H) 8.8 - 10.2 mg/dL [facility] Glucose Lvl 124(H) 82 - 100 mg/dL [facility] BUN 24(H) 8 - 23 mg/dL [facility] Creatinine 1.24 0.51 - 1.30 mg/dL [facility] GFR Afr Am 53 [facility] GFR Non Afr Am 44 [facility] Blood specimen (specimen) UPPER LIMB STRUCTURE / Unknown 01/16/2017 2:25 PM EDT 01/16/2017 6:49 PM EDT us Annalise Oneill MD CHEMISTRY ORDERABLES Edited R esult - Final Performing Organization Address [facility] Co de Phone Number [facility] [address] [place] [address] * (ABNORMAL) SEDIMENTATION RATE AUTOMATED (01/16/2017 2:25 PM EDT) Sed Rate 117(H) 0 - 30 mm/hr [facility] Blood specimen (specimen) UPPER LIMB STRUCTURE / Unknown 01/16/2017 2:25 PM EDT 01/16/2017 6:49 PM EDT us Annalise Oneill MD HEMATOLOGY ORDERABLES Final R esult Performing Organization Address [facility] de Phone Number [address] [address] documented in this encounter Visit Diagnoses Diagnosis Myalgia- Primary Mylagia and myositis, unspecified Elevated sed rate Elevated sedimentation rate Type 2 diabetes mellitus without complication, unspecified skilled nursing insulin use status documented in this encounter Care Teams Credit Officer Relationship Specialty Start Date End Date Annalise Oneill MD [address] [place] [phone] PCP - General Family Medicine 11/19/16 08/19/18 Garett Holt MD Internal Medicine-Gastroenterology 12/22/12 Ruiz Stokes MD [address] [place] [address] Internal Medicine-Cardiovascular Disease 07/25/14 Yenny Schwab MD [address] [facility] [address] [place] [address] Internal Medicine-Rheumatology 12/11/16 documented as of this encounter
--- OUTSIDE RECORDS SUMMARY | 2024-07-22 16:14 | XMS_ITS | Encounter Summary ---
Author Organization [place] [address] Care Team Providers Care Nutrition Professor Name Role Phone Garett Holt MD Unavailable [phone] Ruiz Stokes MD Unavailable [phone] Annalise Oneill MD Primary Care Provider [phone] Yenny Schwab MD Unavailable [phone] Reason for Visit * Auth/Cert/Inpt Specialty Diagnoses / Procedures Referred By Contac t Referred To Contact Diagnoses Intractable chronic cluster headache Intractable chronic cluster headache [G44.021] Procedures MS TEMPORAL ARTERY LIGATN OR BX RIGHT TEMPORAL ARTERY BIOPSY Referral ID Status Reason Start Date Expiration Date Visits Re quested Visits Authorized [id number] 1 1 Encounter Details Date Type Department Care Team (Latest Contact Info) Description 01/03/2017 10:45 AM EDT - 01/03/2017 11:59 PM EDT Hospital Encounter [facility] [address] [place] [address] Katherine Melvin, ASSISTANT COMMUNITY DIRECTOR [address] [place] [address] Christa Cahvez MD [address] [place] [place] [address] Discharge Disposition: Home or Self Care Social [...] EST Appointment [facility] [address] [place] [address] Jomar Kim MD [address] [place] [address] documented as of this encounter [...] Procedure Name Priority Date/Time Associated Diagnosis Comments EK EKG 12 LEAD Routine 01/03/2017 10:45 AM EDT Preop testing Intractable chronic cluster headache documented in this encounter Results * EK EKG 12 LEAD (01/03/2017 10:45 AM EDT) Anatomical Region Laterality Modality Electrocardiogra phy 01/03/2017 11:0 1 AM EDT Impressions 01/04/2017 1:37 PM EDT ? Stationary ECG Study ?[facility] ? Interpretive Statements ? SINUS RHYTHM POSSIBLE ANTERIOR MYOCARDIAL INFARCTION, PROBABLY OLD Electronically Signed On 01-04-2017 13:37:31 EDT by Nohelia Guadarrama MD Narrative Procedure Note Gaye Guadarrama MD - 01/04/2017 IMPRESSION Stationary ECG Study [facility] Interpretive Statements SINUS RHYTHM POSSIBLE ANTERIOR MYOCARDIAL INFARCTION, PROBABLY OLD Electronically Signed On 01-04-2017 13:37:31 EDT by Nohelia Guadarrama MD Katherine Douglas Shubham Messer ASSISTANT COMMUNITY DIRECTOR IMG ECG ORDERABLES Fi nal Result documented in this encounter Visit Diagnoses Not on filedocumented in this encounter Care Teams Nutrition Professor Relationship Specialty Start Date End Date Annalise Oneill MD [address] [place] [address] PCP - General Family Medicine 11/19/16 08/19/18 Garett Holt MD Internal Medicine-Gastroenterology 12/22/12 Ruiz Stokes MD [address] [place] [address] Internal Medicine-Cardiovascular Disease 07/25/14 Yenny Schwab MD [address] [facility] [address] [place] [address] Internal Medicine-Rheumatology 12/11/16 documented as of this encounter
--- OUTSIDE RECORDS SUMMARY | 2024-07-22 16:14 | XMS_ITS | Encounter Summary ---
Author Organization [place] [address] Care Team Providers Care Jewelry Inspector Name Role Phone Garett Holt MD Unavailable [phone] Ruiz Stokes MD Unavailable [phone] Annalise Oneill MD Primary Care Provider [phone] Yenny Schwab MD Unavailable [phone] Encounter Details Date Type Department Care Team (Latest Contact Info) Description 01/17/2017 3:01 PM EDT - 01/17/2017 11:59 PM EDT Hospital Encounter [facility] [address] [facility] [address] [place] [address] Temporal arteritis (HCC) Discharge Disposition: [...] 9:00 AM EST Appointment [facility] [address] [place] [address] Jomar Kim MD [address] [place] [address] documented as of this encounter [...] Procedure Name Priority Date/Time Associated Diagnosis Comments DIFFERENTIAL Routine 01/17/2017 3:01 PM EDT SEDIMENTATION RATE AUTOMATED Routine 01/17/2017 3:01 PM EDT Temporal arteritis (HCC) CBC WITH DIFF Routine 01/17/2017 3:01 PM EDT Temporal arteritis (HCC) C-REACTIVE PROTEIN Routine 01/17/2017 3: 01 PM EDT Temporal arteritis (HCC) COMPREHENSIVE METABOLIC PANEL Routine 01/17/2017 3:01 PM EDT Temporal arteritis (HCC) documented in this encounter Results * DIFFERENTIAL (01/17/2017 3:01 PM EDT) Neut Percent 68.0 % [facility] Lymph Percent 19.9 % [facility] [place] Percent 9.4 % [facility] Eos Percent 2.1 % [facility] Baso Percent 0.6 % [facility] Neut# 6.5 1.8 - 7.7 x10(3)/mcL [facility] Lymph# 1.9 0.6 - 4.8 x10(3)/mcL [facility] [place]# 0.9 0.0 - 1.3 x10(3)/mcL [facility] Eos# 0.2 0.0 - 0.5 x10(3)/mcL [facility] Baso# 0.1 0.0 - 0.2 x10(3)/[facility] Blood specimen (specimen) 01/17/2017 3:01 PM EDT 01/17/2017 5:46 PM EDT us Yenny Schwab MD HEMATOLOGY ORDERABLES Fin al Result [facility] [address] [place] [address] * (ABNORMAL) CBC WITH AUTO DIFF (01/17/2017 3:01 PM EDT) Pathologist [facility] WBC 9.6 4.0 - 11.0 x10(3)/mcL [facility] RBC 3.67(L) 3.80 - 5.10 x10(6)/mcL [facility] Hgb 10.5(L) 12.0 - 15.6 gm/dL [facility] Hct 31.6(L) 35.7 - 45.9 % [facility] MCV 86.2 82.5 - 99.8 fL [facility] MCH 28.5 27.0 - 34.3 pg [facility] MCHC 33.1 32.1 - 35.3 gm/dL [facility] RDW 16.4(H) 11.5 - 15.0 % [facility] Platelet 236 144 - 423 x10(3)/mcL [facility] MPV 7.8 6.8 - 10.8 fL [facility] Blood specimen (specimen) UPPER LIMB STRUCTURE / Unknown 01/17/2017 3:01 PM EDT 01/17/2017 5:46 PM EDT us Yenny Schwab MD HEMATOLOGY ORDERABLES [place] [address] * (ABNORMAL) COMPREHENSIVE METABOLIC PANEL (01/17/2017 3:01 PM EDT) Sodium 142 136 - 145 mmol/L [facility] Potassium 4.9 3.5 - 5.0 mmol/L [facility] Chloride 101 98 - 107 mmol/L [facility] Total CO2 24 22 - 29 mmol/L [facility] Anion Gap 17(H) 7 - 16 mmol/L [facility] Calcium 10.2 8.8 - 10.2 mg/dL [facility] Glucose Lvl 106(H) 82 - 100 mg/dL [facility] BUN 20 8 - 23 mg/dL [facility] Creatinine 1.08 0.51 - 1.30 mg/dL [facility] Albumin 3.8 3.2 - 4.6 gm/dL [facility] Total Protein 7.8 6.4 - 8.3 gm/dL [facility] Bili Total 0.3 0.1 - 1.3 mg/dL [facility] AST 25 <=40 IU/L [facility] ALT 34 <=41 IU/L [facility] Alk Phos 61 35 - 104 IU/L [facility] GFR Afr Am >60 [facility] GFR Non Afr Am [address] [facility] Blood specimen (specimen) UPPER LIMB STRUCTURE / Unknown 01/17/2017 3:01 PM EDT 01/17/2017 5:46 PM EDT Yenny Schwab MD CHEMISTRY ORDERABLES Mercedes l Result Performing Organization Address [facility] [place] [address] * (ABNORMAL) C-REACTIVE PROTEIN (01/17/2017 3:01 PM EDT) CRP 57.25(H) <=5.00 mg/L [facility] Blood specimen (specimen) UPPER LIMB STRUCTURE / Unknown 01/17/2017 3:01 PM EDT 01/17/2017 5:46 PM EDT us Yenny Schwab MD CHEMISTRY ORDERABLES Mercedes l Result Performing Organization Address [facility] [place] [address] * (ABNORMAL) SEDIMENTATION RATE AUTOMATED (01/17/2017 3:01 PM EDT) Sed Rate 119(H) 0 - 30 mm/hr [facility] Blood specimen (specimen) UPPER LIMB STRUCTURE / Unknown 01/17/2017 3:01 PM EDT 01/17/2017 5:46 PM EDT us Yenny Schwab MD HEMATOLOGY ORDERABLES Fin al Result Performing Organization Address [facility] Co de Phone Number [address] [address] documented in this encounter Visit Diagnoses Diagnosis Temporal arteritis (HCC) Giant cell arteritis documented in this encounter Orders Lab Orders Without Results Count Last Ordered D ate First Ordered Date OP VENIPUNCTURE CHARGE 1 01/17/2017 documented in this encounter Care Teams Jewelry Inspector Relationship Specialty Start Date End Date Annalise Oneill MD [address] [facility] [place] [address] PCP - General Family Medicine 11/19/16 08/19/18 Garett Holt MD Internal Medicine-Gastroenterology 12/22/12 Ruiz Stokes MD [address] [facility] [address] Internal Medicine-Cardiovascular Disease 07/25/14 Yenny Schwab MD [address] [facility] [address] [place] [address] Internal Medicine-Rheumatology 12/11/16 documented as of this encounter
--- OUTSIDE RECORDS SUMMARY | 2024-07-22 16:14 | XMS_ITS | Encounter Summary ---
Author Organization [place] [address] Care Team Providers Care Medical Concierge Name Role Phone Garett Holt MD Unavailable [phone] Ruiz Stokes MD Unavailable [phone] Annalise Oneill MD Primary Care Provider Yenny Schwab MD Unavailable [phone] Reason for Visit * Reason Comments Post-Operative Exam 1st post op temporal artery biopsy, feeling lightheaded Encounter Details Date Type Department Care Team (Late st Contact Info) Description 01/16/2017 9:30 AM EDT Office Visit [facility] [address] [address] Christa Chavez MD [address] [place] [address] Intractable chronic cluster headache (Primary Dx) Social History Tobacco Use Types [...] Sign Reading Time Taken Comments Blood Pressure 122/72 01/16/2017 10:08 AM EDT Pulse 77 01/16/2017 10:08 AM EDT Temperature 36.3 ??C (97.4 ??F) 01/16/2017 1 0:08 AM EDT Respiratory Rate - - Oxygen Saturation - - Inhaled Oxygen Concentration - - Weight 115.3 kg (254 lb 1.6 oz) 017 10:08 AM EDT Height 162.6 cm (5' 4 ) 01/16/2017 10:0 8 AM EDT Body Mass Index 43.62 01/16/2017 10:08 AM EDT documented in this encounter Progress Notes * Christa Chavez MD - 01/16/2017 9:30 AM EDT Status post right temporal artery biopsy Pathology reviewed with patient and daughter in office. Normal pathology. Multiple complaints today to include dizziness, weakness, and bitter taste in mouth. Exam: ncision well-healed, no infection. Plan: Follow-up as needed with regards to surgery Follow-up with PCP for other symptoms documented in this encounter Miscellaneous Notes * Patient Instructions - Jo Patricia RMA - 01/16/2017 9:30 AM EDT You may be contacted by [...] 9:00 AM EST Appointment [facility] [address] [place] [address] Jomar Kim MD [address] [facility] [place] [address] documented as of this encounter Goals Goal Patient Goal Type Associated Problems Recent Progress Patient-Stated? Author Blood Pressure < 140/90 Blood Pressure 110/72(2023 2:44 PM EDT) No Rachel Rogers RMLeigh BMI (Calculated) < 30 General 50.9(04/27/20 24 2:44 PM EDT) No Rachel Rogers RMA Eat better, exercise, reach an ideal body weight General No Ni Clinton, MATT Stay Tobacco Free Lifestyle On track( 021 10:23 AM EDT) No Wendy Espinoza LPN HEMOGLOBIN A1C < 7.0 Result Component 5.6( 3:04 PM EST) No Rachel Rogers RMA documented as of this encounter Visit Diagnoses Diagnosis Intractable chronic cluster headache- Primary Chronic cluster headache documented in this encounter Care Teams Medical Concierge Relationship Specialty Start Date End Date Annalise Oneill MD [address] [place] [address] [address] PCP - General Family Medicine 11/19/16 08/19/18 Garett Holt MD Internal Medicine-Gastroenterology 12/22/12 Ruiz Stokes MD [address] [facility] [place] [address] Internal Medicine-Cardiovascular Disease 07/25/14 Yenny Schwab MD [address] [facility] [address] [place] [address] Internal Medicine-Rheumatology 12/11/16 documented as of this encounter
--- OUTSIDE RECORDS SUMMARY | 2024-07-22 16:14 | XMS_ITS | Encounter Summary ---
Author Organization [place] [address] Care Team Providers Care Press And Blow Machine Tender Name Role Phone Garett Holt MD Unavailable [phone] Ruiz Stokes MD Unavailable [phone] Annalise Oneill MD Primary Care Provider [phone] Yenny Schwab MD Unavailable [phone] Reason for Visit * Reason Comments Medication Refill Encounter Details Date Type Department Care Team (Late st Contact Info) Description 02/22/[address] [address] Annalise Oneill MD [address] [place] [address] Medication Refill Social History Tobacco Use [...] BY MOUTH ONCE DAILY 30 Tab 5 02/24/2017 7 lisinopril (PRINIVIL;ZESTRIL) 20 mg Oral TabletIndications:Es sential hypertension TAKE 1 TABLET BY MOUTH ONCE DAILY 90 Tab 5 02/24/2017 7 documented in this encounter Plan of Treatment Upcoming Encounters Date Type Department Care Team (Late st Contact Info) Description 07/29/2024 9:00 AM EST Appointment [facility] [address] [place] [address] Jomar Kim MD [address] [place] [address] documented as of this encounter [...] Unspecified essential hypertension Hyperlipidemia, unspecified hyperlipidemia type documented in this encounter Discontinued Medications Medication Sig Discontinue Reason Start Date End Da te lisinopril (PRINIVIL;ZESTRIL) 10 mg Oral TabletIndications:Essential hypertension Take 2 Tabs by mouth daily. Reorder 11/19/2016 02/22/2017 atorvastatin (LIPITOR) 20 mg Oral TabletIndications:Hyperlipi demia, unspecified hyperlipidemia type Take 1 Tab by mouth daily. Reorder 01/09/2017 02/22/2017 documented as of this encounter Care Teams Press And Blow Machine Tender Relationship Specialty Start Date End Date Annalise Oneill MD [address] [place] [id number] PCP - General Family Medicine 11/19/16 08/19/18 Garett Holt MD Internal Medicine-Gastroenterology 12/22/12 Ruiz Stokes MD [address] [place] [address] Internal Medicine-Cardiovascular Disease 07/25/14 Yenny Schwab MD [address] [facility] [address] [place] [address] Internal Medicine-Rheumatology 12/11/16 documented as of this encounter
--- OUTSIDE RECORDS SUMMARY | 2024-07-22 16:14 | XMS_ITS | Encounter Summary ---
Author Organization [place] [address] Care Team Providers Care Filter Changer Name Role Phone Garett Holt MD Unavailable [phone] Ruiz Stokes MD Unavailable [phone] Annalise Oneill MD Primary Care Provider [phone] Reason for Visit * Reason Onset Date Comments Medication Management 12/05/2016 Encounter Details Date Type Department Care Team (Late st Contact Info) Description 12/05/[address] [address] Annalise Oneill MD [address] [place] [address] Medication Management Social History Tobacco Use Types [...] Telephone Encounter - Wendy Espinoza LPN - 12/05/2016 5:14 PM EDT Alban notified * Telephone Encounter - Annalise Oneill MD - 12/05/2016 11:51 AM EDT Take prednisone as prescribed and monitor blood sugars closely If sugars> 250 persistently call office * Telephone Encounter - iN Clinton RN - 12/05/2016 11:35 AM EDT Spouse called to let us know that Alyssa has taken the first dose of medication today / prednisone. Told him we would call back if needed further instructions. documented in this encounter Plan of Treatment Upcoming Encounters Date Type Department Care Team (Late st Contact Info) Description 07/29/2024 9:00 AM EST Appointment [facility] [address] [place] [address] Jomar Kim MD [address] [place] [address] documented as of this encounter [...] on filedocumented in this encounter Care Teams Filter Changer Relationship Specialty Start Date End Date Annalise Oneill MD [address] [place] [address] [place] [address] PCP - General Family Medicine 11/19/16 08/19/18 Garett Holt MD Internal Medicine-Gastroenterology 12/22/12 Ruiz Stokes MD [address] [facility] [place] [address] Internal Medicine-Cardiovascular Disease 07/25/14 documented as of this encounter
--- OUTSIDE RECORDS SUMMARY | 2024-07-22 16:14 | XMS_ITS | Encounter Summary ---
Author Organization [place] [address] Care Team Providers Care Derrick Boat Leverman Name Role Phone Garett Holt MD Unavailable [phone] Ruiz Stokes MD Unavailable [phone] Annalise Oneill MD Primary Care Provider [phone] Yenny Schwab MD Unavailable [phone] Reason for Referral * DEXA (Routine) - Closed Specialty Diagnoses / Procedures Referred By Contac t Referred To Contact Radiology Diagnoses Age-related osteoporosis without current pathological fracture Procedures DX BONE DENSITY AXIAL SKELETON Yenny Schwab MD [address] [id number] Phone: tel: fax: Referral ID Status Reason Start Date Expiration Date Visits Re quested Visits Authorized [id number] Closed 01/17/2017 01/17/2018 1 1 Reason for Visit * Reason Comments Follow-up Joint Pain arthralgia Results discuss results Myalgias * Consultation (Urgent) - Closed Specialty Diagnoses / Procedures Referred By Contact Referred To Contact Internal Medicine-Rheumatology / Rheumatology Diagnoses PMR (polymyalgia rheumatica) (HCC) Right sided temporal headache Elevated sed rate Type 2 diabetes mellitus without complication, unspecified skilled nursing insulin use status Annalise Oneill MD [address] [place] [address] Phone: tel:[phone] fax:[phone] SEP Rheumatology [facility] [address] [place] [address] Phone: tel: fax: Referral ID Status Reason Start Date Expiration Date Visits Re quested Visits Authorized [id number] Closed 11/20/2016 11/20/2017 99 99 Encounter Details Date Type Department Care Team (Latest Contact Info) Description 01/17/2017 3:00 PM EDT Office Visit [facility] Rheumatology [facility] [address] [place] [id number] Yenny Schwab MD [address] [address] Temporal arteritis (HCC) (Primary Dx); Chronic intractable headache, unspecified headache type; Vision blurring; PMR (polymyalgia rheumatica) (HCC); exterminator (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) use 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; Age-related osteoporosis without current pathological fracture Social History Tobacco Use Types Packs/Day Years [...] Sign Reading Time Taken Comments Blood Pressure 124/64 01/17/2017 2:19 PM EDT Pulse 76 01/17/2017 2:19 PM EDT Temperature - - Respiratory Rate 16 01/17/2017 2:19 PM EDT Oxygen Saturation - - Inhaled Oxygen Concentration - - Weight 115.7 kg (255 lb) 01/17/2017 2:19 PM EDT Height 162.6 cm (5' 4 ) 01/17/2017 2:19 PM EDT Body Mass Index 43.77 01/17/2017 2:19 PM EDT documented in this encounter Ordered Prescriptions Prescription Sig Dispense Quantity Refills Last Filled Start Date End Date alendronate (FOSAMAX) 70 mg Oral TabletIndications: Age-related osteoporosis without current pathological fracture Take 1 Tab by mouth every 7 days. Take in AM with a glass of water and do not take anything else by mouth or lie down for the next 30 min. 4 Tab 11 01/17/2017 7 predniSONE (DELTASONE) 20 mg Oral TabletIndications: Temporal arteritis (HCC) Take 4 Tabs by mouth daily. 160 Tab 1 01/17/2017 7 documented in this encounter Progress Notes * Yenny Schwab MD - 01/17/2017 3:00 PM EDT Subjective Subjective: Patient ID: Alyssa Jamil is a 61 y.o. female. Chief Complaint Patient presents with ??? Follow-up ??? Joint Pain arthralgia ??? Results discuss results ??? Myalgias HPI The patient comes in for consultation regarding possible PMR and TA. since Sep- Oct she has been having pain in the shoulders and hips as well as lower back. Shoulders were bothering her more at night and early in the morning. She had problems lifting the arms due to pain in the shoulders. Aleve or Advil helped a little bit. Hips bothered her a lot if she would sits for prolonged time. It was hard to get up after prolongedrest. Symptoms improved with movement. She started getting severe headaches on the right side in November. Headache lasted all day on and off. She was getting dizzy, ringing in the right ear as well as blurry vision. Dr. Oneill started prednisone taper and was referred to Dr. Chavez for surgery. She had to cancel surgery due to illness. Headache resolved after couple of days on 60 mg of prednisone but returned after she lowered the dose to 20 mg daily. At the initial visit while on prednisone 20 mg she continued to have headaches but denied pain in the hips or shoulders. Morning stiffness has decreased fromall day to 5 monutes. I advised her to go back to surgeon for TA biopsy and increased prednisone back to 60 mg daily. She had TA biopsy on 01/05 that came back negative. She has been taking prednisone 60 mg daily since the last visit. Dr. Chavez advised her to stop it onthe day of the surgery 01/03. She states she felt pretty good and barely had any pain. Headaches would still come and go but they have improved. In the last week she has been having stomach ache and nausea. She has been unable to keep anything down in the last week. Throws up food and water. She seems to be falling asleep and does not know where she is after walking up. She started with those symptoms after surgery. Has been having more dizzy spells, loosing balance, more back and bilateral shoulder pain. She was seen by Dr. Oneill yesterday and repeat ESR was 117. She has been having stiffness and pain in the morning. Those get a little better as she moves around. Pain on a scale 0-10: 8-9/10 Type of pain: ache Associated symptoms: morning stiffness up to 1hour Aggravating factors: cold, rest Alleviating factors: activities, Aleve, Advil, Prednisone Current therapy: none, off of prednisone since 01/03 Patients past medical, family and social histories were reviewed and updated. There were no changesexcept as noted. Review of Systems Constitutional: Positive for appetite change and fatigue. Respiratory: Positive for shortness of breath and wheezing. Cardiovascular: Positive for chest pain. Gastrointestinal: Positive for abdominal pain, nausea and vomiting. Musculoskeletal: Positive for arthralgias, back pain and myalgias. Negative for joint swelling. Neurological: Positive for dizziness, weakness and headaches. Psychiatric/Behavioral: Positive for sleep disturbance. All other systems reviewed and are negative. Objective Objective: Vitals: 01/17/17 1419 BP: 124/64 Pulse: 76 Resp: 16 Weight: 255 lb (115.7 kg) Height: 5' 4 (1.626 m) Body mass index is 43.77 kg/(m^2). Physical Exam Constitutional: She is oriented to person, place, and time. She appears well- developed and well-nourished. HENT: Head: Normocephalic and atraumatic. Eyes: Pupils are equal, round, and reactive to light. Cardiovascular: Normal rate and normal heart sounds. No murmur heard. Tenderness to the right temporal area, no carotid bruits. Temporal artery pulses present bilaterally. Pulmonary/Chest: Effort normal and breath sounds normal. No respiratory distress. She has no wheezes. Abdominal: Soft. Bowel sounds are normal. There is tenderness (right upper quadrant). Musculoskeletal: ROM of the shoulders and hips painful. No tenderness to the small joints of the hands. No synovitis, no effusions. Crepitus in the knees. Neurological: She is alert and oriented to person, place, and time. Skin: Skin is warm. No rash noted. Psychiatric: She has a normal mood and affect. Vitals reviewed. Rapid 3; 21.2 Lab Results Component Value Date TIERRA Negative 12/11/2016 Lab Results Component Value Date CCPABIGG <0.5 12/11/2016 Lab Results Component Value Date RFQUANT <10 12/11/2016 ANCA neg MPO neg PR3 neg Lab Results Component Value Date HEPCAB Negative 12/11/2016 Lab Results Component Value Date HEPBSAG Negative 12/11/2016 Lab Results Component Value Date COLORU Yellow 05/21/2016 COLORU yellow 10/05/2012 CLARITYU Clear 05/21/2016 CLARITYU clear 10/05/2012 GLUCOSEU Negative 05/21/2016 BILIRUBINUR - 07/18/2015 KETONESU Negative 05/21/2016 KETONESU - 07/18/2015 BLOODU Small (A) 05/21/2016 PHUR 6.0 05/21/2016 PHUR 5 07/18/2015 UAPROTEIN Negative 05/21/2016 UROBILINOGEN 0.2 E.U./dL 05/21/2016 UROBILINOGEN - 07/18/2015 NITRITE Negative 05/21/2016 NITRITE - 07/18/2015 LEUKOCYTESUR Trace (A) 05/21/2016 LEUKOCYTESUR - 07/18/2015 SPECGRAV 1.020 05/21/2016 SPECGRAV 1.025 07/18/2015 Lab Results Component Value Date WBC 9.3 11/19/2016 HGB 11.5 (L) 11/19/2016 HCT 36.4 11/19/2016 MCV 85.6 11/19/2016 PLT 295 11/19/2016 Chemistry Component Value Date/Time NA 142 01/16/2017 1425 K 4.6 01/16/2017 1425 CL 101 01/16/2017 1425 CL 103 05/17/2013 0829 CO2 26 01/16/2017 1425 CO2 25 05/17/2013 0829 BUN 24 (H) 01/16/2017 1425 CREATININE 1.24 01/16/2017 1425 GLU 124 (H) 01/16/2017 1425 Component Value Date/Time CALCIUM 10.4 (H) 01/16/2017 1425 ALKPHOS 73 11/19/2016 0856 AST 12 11/19/2016 0856 ALT 10 11/19/2016 0856 BILITOT 0.2 06/22/2012 1242 Lab Results Component Value Date CRP 1.07 12/11/2016 Lab Results Component Value Date SEDRATE 117 (H) 01/16/2017 Lab Results Component Value Date VCPL59WM 31.7 12/11/2016 EXFL83RG 23.7 (L) 05/31/2014 Path 01/06/17 Diagnosis ?Right temporal artery, biopsy: ?- Temporal artery with no significant pathologic abnormality. ?- No evidence of arteritis. Assessment and Plan: Alyssa was seen today for follow-up, joint pain, results and myalgias. Diagnoses and all orders for this visit: Temporal arteritis (HCC) Chronic intractable headache, unspecified headache type Vision blurring PMR (polymyalgia rheumatica) (HCC) Symptoms suspicious for PMR vs inflammatory arthritis Stiffness and pain in the shoulder and hip girdle in the last 2-3 months Improvement with activities and prednisone Highly elevated inflammatory markers Prednisone increased back to 60 mg daily on 12/11/16 giving high suspicion for TA. She was advised tostay on that dose but reports Dr. Chavez advised to discontinue prednisone the day of surgery ( 01/03 She had resolution of joint pain, stiffness on prednisone 60 mg daily but the headaches would stillcome occasionally. TA biopsy negative but the patient has been on steroids for 3 weeks prior to biopsy which could have contributed to negative results. Clinically presentation most suggestive of PMR and TA and will treat as such. Since discontinuation of prednisone all of the symptoms flared. She also reports visual blurring onright. She has tenderness to right temporal artery, pain on the ROM of the shoulders and hips today. Her ESR was 117 She also reports los of appetite, nausea, abdominal pain so I wonder whether she has adrenal insufficiency due to sudden discontinuation of prednisone that she had taken for the few week prior to surgery Will restart 80 mg today giving the fact she still had headaches while on 60 mg. She will continue 80 mg daily till the next visit in 1 month. If symptoms better and inflammatory markers normal will start taper - predniSONE (DELTASONE) 20 mg Oral Tablet; Take 4 Tabs by mouth daily. 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 Risks of therapy with bisphosphonates were discussed with patient including risk of gastrointestinal intolerance, osteonecrosis of the jaw and recent reports of atypical subtrochanteric fractures with skilled nursing use. I have also discussed significant benefit of fracture prevention. The patient was advised to take the medicationin the morning on an empty stomach with a full glass of water. The patient should remain upright and take nothing by mouth at least 30 minutes after taking the medication. Vitamin D supplement 1000 units daily - alendronate (FOSAMAX) 70 mg Oral Tablet; Take 1 Tab by mouth every 7 days. Take in AM with a glass of water and do not take anything else by mouth or lie down for the next 30 min. - DEXA bone density axial skeleton; Future Therapeutic drug monitoring Vitamin D deficiency Advised to take prednisone after meal Check vitamin D today Ca/ vitamin D daily - Vitamin D 25 Hydroxy; Future Return in about 4 weeks (around 02/14/2017). documented in this encounter Plan of Treatment Upcoming Encounters Date Type Department Care Team (Late st Contact Info) Description 07/29/2024 9:00 AM EST Appointment [facility] [address] [place] [address] Jomar Kim MD [address] [facility] [place] [address] documented as of this encounter [...] documented as of this encounter Results * DX BONE DENSITY AXIAL SKELETON (01/30/2017 10:35 AM EDT) Anatomical Region Laterality Modality Dexa Scan 01/30/2017 Narrative 02/01/2017 3:52 PM EDT Indication: The patient is presently being monitored while on treatment and requires a bone density assessment. Study was performed on [employer] 5. Bone Density: Region ?BMD ? T-score [...] PA-C, CCD on 01/30/2017 3:24:00 PM. Yenny SOTO DEXA ORDERABLES Final Result * (ABNORMAL) SEDIMENTATION RATE AUTOMATED (01/17/2017 3:01 PM EDT) Pathologist [facility] Sed Rate 119(H) 0 - 30 mm/hr [facility] Blood specimen (specimen) UPPER LIMB STRUCTURE / Unknown 01/17/2017 3:01 PM EDT 01/17/2017 5:46 PM EDT Yenny Schwab MD HEMATOLOGY ORDERABLES Fin al Result Performing Organization Address City/[facility]/ZIP Co de Phone Number [facility] [address] [place] [address] * (ABNORMAL) C-REACTIVE PROTEIN (01/17/2017 3:01 PM EDT) CRP 57.25(H) <=5.00 mg/L [facility] Blood specimen (specimen) UPPER LIMB STRUCTURE / Unknown 01/17/2017 3:01 PM EDT 01/17/2017 5:46 PM EDT Yenny Schwab MD CHEMISTRY ORDERABLES Mercedes l Result Performing Organization Address [facility] Co de Phone Number [facility] [address] [place] [address] * (ABNORMAL) CBC WITH AUTO DIFF (01/17/2017 3:01 PM EDT) WBC 9.6 4.0 - 11.0 x10(3)/mcL [facility] RBC 3.67(L) 3.80 - 5.10 x10(6)/mcL [facility] Hgb 10.5(L) 12.0 - 15.6 gm/dL [facility] Hct 31.6(L) 35.7 - 45.9 % [facility] MCV 86.2 82.5 - 99.8 fL [facility] MCH 28.5 27.0 - 34.3 pg [facility] MCHC 33.1 32.1 - 35.3 gm/dL [facility] RDW 16.4(H) 11.5 - 15.0 % [facility] Platelet 236 144 - 423 x10(3)/mcL [facility] MPV 7.8 6.8 - 10.8 fL [facility] Blood specimen (specimen) UPPER LIMB STRUCTURE / Unknown 01/17/2017 3:01 PM EDT 01/17/2017 5:46 PM EDT Yenny Schwab MD HEMATOLOGY ORDERABLES Fin al Result Performing Organization Address City/[facility]/ZIP Co de Phone Number [facility] [address] [place] [address] * (ABNORMAL) COMPREHENSIVE METABOLIC PANEL (01/17/2017 3:01 PM EDT) Sodium 142 136 - 145 mmol/L [facility] Potassium 4.9 3.5 - 5.0 mmol/L [facility] Chloride 101 98 - 107 mmol/L [facility] Total CO2 24 22 - 29 mmol/L [facility] Anion Gap 17(H) 7 - 16 mmol/L [facility] Calcium 10.2 8.8 - 10.2 mg/dL [facility] Glucose Lvl 106(H) 82 - 100 mg/dL [facility] BUN 20 8 - 23 mg/dL [facility] Creatinine 1.08 0.51 - 1.30 mg/dL [facility] Albumin 3.8 3.2 - 4.6 gm/dL [facility] Total Protein 7.8 6.4 - 8.3 gm/dL [facility] Bili Total 0.3 0.1 - 1.3 mg/dL [facility] AST 25 <=40 IU/L [facility] ALT 34 <=41 IU/L [facility] Alk Phos 61 35 - 104 IU/L [facility] GFR Afr Am >60 [facility] GFR Non Afr Am [address] [facility] Blood specimen (specimen) UPPER LIMB STRUCTURE / Unknown 01/17/2017 3:01 PM EDT 01/17/2017 5:46 PM EDT Yenny Schwab MD CHEMISTRY ORDERABLES Mercedes l Result Performing Organization Address [facility]/ZIP Co de Phone Number [facility] [address] [place] [address] documented in this encounter Visit Diagnoses Diagnosis Temporal arteritis (HCC)- Primary Giant cell arteritis Chronic intractable headache, unspecified headache type Vision blurring Other specified visual disturbances PMR (polymyalgia rheumatica) (HCC) Polymyalgia rheumatica group home (current) use 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 Age-related osteoporosis without current pathological fracture Senile osteoporosis Age-related osteoporosis without current pathological fracture Senile osteoporosis documented in this encounter Discontinued Medications Medication Sig Discontinue Reason Start Date End Da te predniSONE (DELTASONE) 20 mg Oral TabletIndications:Joint stiffness,Headache, unspecified headache type Take 3 Tabs by mouth daily. Dose adjustment 12/11/2016 01/17/2017 documented as of this encounter Care Teams Derrick Boat Leverman Relationship Specialty Start Date End Date Annalise Oneill MD [address] [place] [id number] PCP - General Family Medicine 11/19/16 08/19/18 Garett Holt MD Internal Medicine-Gastroenterology 12/22/12 Ruiz Stokes MD [address] [place] [address] Internal Medicine-Cardiovascular Disease 07/25/14 Yenny Schwab MD [address] [facility] [address] [place] [address] Internal Medicine-Rheumatology 12/11/16 documented as of this encounter
--- OUTSIDE RECORDS SUMMARY | 2024-07-22 16:14 | XMS_ITS | Encounter Summary ---
Author Organization [place] [address] Care Team Providers Care Floor Scrubber Name Role Phone Garett Holt MD Unavailable [phone] Ruiz Stokes MD Unavailable [phone] Annalise Oneill MD Primary Care Provider [phone] Yenny Schwab MD Unavailable [phone] Reason for Visit * Reason Onset Date Comments Surgery 01/01/2017 Encounter Details Date Type Department Care Team (Late st Contact Info) Description 01/01/2017 Telephone SEP Gen Surg EDG [address] [facility] [address] [place] [address] Clarisse Wise, [facility] Surgery Social History Tobacco Use Types Packs/Day Years [...] encounter Miscellaneous Notes * Telephone Encounter - Clarisse Wise RMA - 01/01/2017 1:27 PM EDT Surgery Slip Information Dr: Kathy Procedure: (R) temporal artery biopsy Arrival Date & Time: 01/06/17 @ 10:45 am Notified: 01/01/17 NPO: yes Pretest: [phone] documented in this encounter Plan of Treatment Upcoming Encounters Date Type Department Care Team (Late st Contact Info) Description 07/29/2024 9:00 AM EST Appointment [facility] [address] [place] [address] Jomar Kim MD [address] [place] [address] documented as of this encounter [...] on filedocumented in this encounter Care Teams Floor Scrubber Relationship Specialty Start Date End Date Annalise Oneill MD [address] [facility] [place] [address] PCP - General Family Medicine 11/19/16 08/19/18 Garett Holt MD Internal Medicine-Gastroenterology 12/22/12 Ruiz Stokes MD [address] [place] [address] Internal Medicine-Cardiovascular Disease 07/25/14 Yenny Schwab MD [address] [address] Internal Medicine-Rheumatology 12/11/16 documented as of this encounter
--- OUTSIDE RECORDS SUMMARY | 2024-07-22 16:14 | XMS_ITS | Encounter Summary ---
Author Organization [place] [address] Care Team Providers Care Furnace Operator Name Role Phone Garett Holt MD Unavailable [phone] Ruiz Stokes MD Unavailable [phone] Annalise Oneill MD Primary Care Provider [phone] Yenny Schwab MD Unavailable [phone] Reason for Visit * Reason Comments Follow-up 4 week Myalgias * Consultation (Urgent) - Closed Specialty Diagnoses / Procedures Referred By Contact Referred To Contact Internal Medicine-Rheumatology / Rheumatology Diagnoses PMR (polymyalgia rheumatica) (HCC) Right sided temporal headache Elevated sed rate Type 2 diabetes mellitus without complication, unspecified correction insulin use status Annalise Oneill MD [address] [place] [address] Phone: tel:[phone] fax:[phone] [facility] Rheumatology [address] [address] Phone: tel: fax: Referral ID Status Reason Start Date Expiration Date Visits Re quested Visits Authorized [id number] Closed 11/20/2016 11/20/2017 99 99 Encounter Details Date Type Department Care Team (Latest Contact Info) Description 02/28/2017 2:45 PM EDT Office Visit [facility] Rheumatology [facility] [address] [facility] Building [address] [place] [phone] Yenny Schwab MD [address] [facility] Building [address] [place] [address] Temporal arteritis (HCC) (Primary Dx); PMR (polymyalgia rheumatica) (HCC); Intractable chronic cluster headache; Age-related osteoporosis without current pathological fracture; jail (current) use 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; Therapeutic drug monitoring; Vitamin D deficiency Social [...] Sign Reading Time Taken Comments Blood Pressure 139/68 02/28/2017 2:47 PM EDT Pulse 88 02/28/2017 2:47 PM EDT Temperature - - Respiratory Rate 16 02/28/2017 2:47 PM EDT Oxygen Saturation - - Inhaled Oxygen Concentration - - Weight 115.7 kg (255 lb) 02/28/2017 2:47 PM EDT Height 162.6 cm (5' 4 ) 02/28/2017 2:47 PM EDT Body Mass Index 43.77 02/28/2017 2:47 PM EDT documented in this encounter Progress Notes * Yenny Schwab MD - 02/28/2017 2:45 PM EDT Subjective Subjective: Patient ID: Alyssa Jamil is a 61 y.o. female. Chief Complaint Patient presents with ??? Follow-up 4 week ??? Myalgias HPI The patient comes in [...] hips or shoulders. Morning stiffness has decreased from day to 5 monutes. I advised her to go back to surgeon for TA biopsy and increased prednisone back to 60 mg daily. Symptoms improved but prednisone was stopped a day after surgery and all of the symptoms worsened. Lastvisit she also had abdominal pain, dizzy spells, balance issues. I restarted prednisone 80 mg daily. 10 days ago she had nose bleed that lasted 6 hours. She has been having a lot of issues with hemorrhoids. Headaches are still present. They have improved, they are present on the daily basis. Rates pain as5.5-6/10. Initially at presentation they were at 9/10. Occasional visual blurring every other day lasting for a couple of hours. Pain in the shoulders have resolved. She has pain in the right hip, points to the side. Left ankle swells periodically, ongoing for the last 2 years. Pain on a scale 0-10: 9/10 Type of pain: ache Associated symptoms: morning stiffness up to 2 hours Aggravating factors: cold, rest Alleviating factors: activities, Aleve, Advil, Prednisone Current therapy: prednisone 80 mg daily, Patients past medical, family and social histories were reviewed and updated. There were no changesexcept as noted. Review of Systems Constitutional: Positive for appetite change and fatigue. HENT: Positive for mouth sores. Respiratory: Positive for cough, shortness of breath and wheezing. Cardiovascular: Positive for chest pain and palpitations. Gastrointestinal: Positive for abdominal pain and constipation. Musculoskeletal: Positive for arthralgias, back pain, myalgias and neck pain. Neurological: Positive for dizziness and headaches. Hematological: Bruises/bleeds easily. Psychiatric/Behavioral: Positive for sleep disturbance. All other systems reviewed and are negative. Objective Objective: Vitals: 02/28/17 1447 BP: 139/68 BP Location: Left arm Patient Position: Sitting Pulse: 88 Resp: 16 Weight: 255 lb (115.7 kg) [...] mood and affect. Vitals reviewed. Rapid 3: 25.0 Lab Results Component Value Date TKBQ03US 31.7 12/11/2016 [id number] 23.7 (L) 05/31/2014 Assessment and Plan: Alyssa was seen today for follow-up and myalgias. Diagnoses and all orders for this visit: Temporal arteritis (HCC) PMR (polymyalgia rheumatica) (HCC) Intractable chronic cluster headache Symptoms suspicious for PMR vs inflammatory arthritis Stiffness and pain in the shoulder and hip girdle in the last 2-3 months Improvement with activities and prednisone Highly elevated inflammatory markers Prednisone increased back to 60 mg daily on 4/5/17 giving high suspicion for TA. She was [...] and TA and will treat as such. Headaches still present but not as severe as they were few weeks ago. She reports she always had chronic, recurrent headaches. Can not tell the difference between those and the recent exacerbation. Symptoms of PMR have resolved. Currently on 80 mg of prednisone. Will recheck labs and if OK taper prednisone to 60 mg daily - Comprehensive Metabolic Panel; Future - CBC with Auto Diff; Future - C-Reactive Protein; Future - Sedimentation Rate Automated; Future Age-related osteoporosis without current pathological fracture jail (current) use 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 The patient is at high risk for fractures; postmenopausal, on chronic steroids DXA normal -0.6 ion the left femoral neck Fosamax 70 mg weekly started end of January 2017 for prevention of OP. Will continue till the patient tapers prednisone to the lower dose Vitamin D supplement 1000 units daily Therapeutic drug monitoring Vitamin D deficiency Advised to take prednisone after meal Vitamin D normal Continue Ca/ vitamin D daily Return in about 6 weeks (around 04/11/2017). documented in this encounter Plan of Treatment Upcoming Encounters Date Type Department Care Team (Late st Contact Info) Description 07/29/2024 9:00 AM EST Appointment [facility] [address] [place] [address] Jomar Kim MD [address] [place] [address] documented as of this encounter [...] documented as of this encounter Results * SEDIMENTATION RATE AUTOMATED (02/28/2017 3:25 PM EDT) Pathologist [facility] Sed Rate 16 0 - 30 mm/hr [facility] Blood specimen (specimen) UPPER LIMB STRUCTURE / Unknown 02/28/2017 3:25 PM EDT 02/28/2017 5:46 PM EDT Yenny Schwab MD HEMATOLOGY ORDERABLES Fin al Result Performing Organization Address [facility]/[place] [address] * C-REACTIVE PROTEIN (02/28/2017 3:25 PM EDT) [facility] CRP 0.49 <=5.00 mg/L [facility] Blood specimen (specimen) UPPER LIMB STRUCTURE / Unknown 02/28/2017 3:25 PM EDT 02/28/2017 5:47 PM EDT Yenny Schwab MD CHEMISTRY ORDERABLES Mercedes l Result Performing Organization Address City/[facility]/[place] [address] * (ABNORMAL) CBC WITH AUTO DIFF (02/28/2017 3:25 PM EDT) [facility] WBC 14.3(H) 4.0 - 11.0 x10(3)/mcL [facility] RBC 4.27 3.80 - 5.10 x10(6)/mcL [facility] Hgb 12.5 12.0 - 15.6 gm/dL [facility] Hct 38.8 35.7 - 45.9 % [facility] MCV 90.8 82.5 - 99.8 fL [facility] MCH 29.3 27.0 - 34.3 pg [facility] MCHC 32.3 32.1 - 35.3 gm/dL [facility] RDW 19.1(H) 11.5 - 15.0 % [facility] Platelet 238 144 - 423 x10(3)/mcL [facility] MPV 7.9 6.8 - 10.8 fL [facility] Blood specimen (specimen) UPPER LIMB STRUCTURE / Unknown 02/28/2017 3:25 PM EDT 02/28/2017 5:46 PM EDT us Yenny Schwab MD HEMATOLOGY ORDERABLES Fin al Result [facility] [address] [place] [address] * (ABNORMAL) COMPREHENSIVE METABOLIC PANEL (02/28/2017 3:25 PM EDT) Sodium 136 136 - 145 mmol/L [facility] Potassium 5.6(H) 3.5 - 5.0 mmol/L [facility] Chloride 95(L) 98 - 107 mmol/L [facility] Total CO2 27 22 - 29 mmol/L [facility] Anion Gap 14 7 - 16 mmol/L [facility] Calcium 11.2(H) 8.8 - 10.2 mg/dL [facility] Glucose Lvl 132(H) 82 - 100 mg/dL [facility] BUN 29(H) 8 - 23 mg/dL [facility] Creatinine 0.91 0.51 - 1.30 mg/dL [facility] Albumin 4.6 3.2 - 4.6 gm/dL [facility] Total Protein 7.4 6.4 - 8.3 gm/dL [facility] Bili Total 0.3 0.1 - 1.3 mg/dL [facility] AST 12 <=40 IU/L [facility] ALT 26 <=41 IU/L [facility] Alk Phos 38 35 - 104 IU/L [facility] GFR Afr Am >60 [facility] GFR Non Afr Am >60 [facility] Blood specimen (specimen) UPPER LIMB STRUCTURE / Unknown 02/28/2017 3:25 PM EDT 02/28/2017 5:47 PM EDT Yenny Schwab MD CHEMISTRY ORDERABLES Edit ed Result - Final [facility] [address] [place] [address] documented in this encounter Visit Diagnoses Diagnosis Temporal arteritis (HCC)- Primary Giant cell arteritis PMR (polymyalgia rheumatica) (HCC) Polymyalgia rheumatica Intractable chronic cluster headache Chronic cluster headache Age-related osteoporosis without current pathological fracture 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 osteoporosis 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 Therapeutic drug monitoring Encounter for therapeutic drug monitoring Vitamin D deficiency Unspecified vitamin D deficiency documented in this encounter Care Teams Furnace Operator Relationship Specialty Start Date End Date Annalise Oneill MD [address] [place] [phone] PCP - General Family Medicine 11/19/16 08/19/18 Garett Holt MD Internal Medicine-Gastroenterology 12/22/12 Ruiz Stokes MD [address] [place] [address] Internal Medicine-Cardiovascular Disease 07/25/14 Yenny Schwab MD [address] [address] Internal Medicine-Rheumatology 12/11/16 documented as of this encounter
--- OUTSIDE RECORDS SUMMARY | 2024-07-22 16:14 | XMS_ITS | Encounter Summary ---
Author Organization [place] [address] Care Team Providers Care Fruit Inspector Name Role Phone Garett Holt MD Unavailable [phone] Ruiz Stokes MD Unavailable [phone] Annalise Oneill MD Primary Care Provider [phone] Yenny Schwab MD Unavailable [phone] Reason for Visit * Auth/Cert/Inpt Specialty Diagnoses / Procedures Referred By Contac t Referred To Contact Diagnoses Intractable chronic cluster headache Intractable chronic cluster headache [G44.021] Procedures MI TEMPORAL ARTERY LIGATN OR BX RIGHT TEMPORAL ARTERY BIOPSY Referral ID Status Reason Start Date Expiration Date Visits Re quested Visits Authorized [id number] 1 1 Encounter Details Date Type Department Care Team (Latest Contact Info) Description 01/03/2017 10:00 AM EDT - 01/03/2017 10:44 AM EDT Hospital Encounter [facility] [address] [place] [address] Pat, Christina Preop testing (Primary Dx); Intractable chronic cluster headache Discharge Disposition: Home or Self Care Anesthesia Record Procedure Summary Procedure Name Responsible [...] acknowledgement of understanding from the 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 * Blood No blood administrations on file. Lines, Drains, and Airways Type Details Placement Removal Peripheral IV 01/06/17; 1002; 20; Right; Upper arm; Shannan jarquin RN; 01/06/17; 1511 01/06/17 1002 by Yamini Jarquin RN 01/06/17 1511 by Lorin Nice, MATT Incision/Procedural [...] Sign Reading Time Taken Comments Blood Pressure 126/77 01/03/2017 10:32 AM EDT Pulse 84 01/03/2017 10:22 AM EDT Temperature 37 ??C (98.6 ??F) 01/03/2017 10:22 AM EDT Respiratory Rate 14 01/03/2017 10:22 AM EDT Oxygen Saturation 97% 01/03/2017 10:22 AM EDT Inhaled Oxygen Concentration - - Weight 116.1 kg (256 lb) 01/03/2017 10:22 AM EDT Height 162.6 cm (5' 4 ) 01/03/2017 10:22 AM EDT Body Mass Index 43.94 01/03/2017 10:22 AM EDT documented in this encounter Discharge Instructions * Discharge Instructions* Brynn Schilling RN - 01/03/2017 10:22 AM EDT PREOPERATIVE INFORMATION AND INSTRUCTIONS TO PREPARE FOR SURGERY/PROCEDURE Date of Surgery 01/06/17 1. For your SAFETY do not eat any food or drink anything after midnight. This includes chewing gum,mints, candy, chewing tobacco and dip. You may have water only 4 hrs prior to surgery start time unless instructed by surgeon. 2. You may brush your teeth and gargle the morning of surgery. Do not swallow water. 3. Take the following pills with a small sip of water on the morning of surgery: OMEPRAZOLE, AMLODIPINE, BISPROLOL, CARVEDILOL, PREDNISONE 4. Aspirin, Coumadin, Ibuprofen, Plavix, Fish Oil, Vitamin E, any Supplements and Anti-Inflammatoryproducts may be stopped as directed by your physician. 5. It is also for your SAFETY that you do not smoke or use any type of tobacco products within 24 hours prior to surgery. Smoking will also slow your rate of healing, so it is advised that you do notsmoke during the healing process. No beer, wine or alcohol 24 hours prior to surgery. 6. It is important that on the day of surgery that you have a SNUFF CONTAINER INSPECTOR which is someone, 18 years or older, who can accompany you and remain in the facility for the duration of your surgery. Theyshould be available for the PERIOPERATIVE TEAM which includes your surgeon to COMMUNICATE with before, during, and after your surgery. Someone should also remain with you for 24 hours post surgery and you may not drive to make sure you are SAFE during that time. 7. A parent must accompany a child scheduled for surgery and plan to stay at the hospital until thechild is discharged. If your infant takes a special type of nipple or baby bottle, please bring that with you. If your child has a favorite security item such as a blanket or a special toy, please feel free to bring that with you. 8. Please do not bring children with you to the hospital. 9. Please wear simple, loose fitting clothing to the hospital. Do not bring valuables (money, credit cards, check books, etc.) or wear any jewelry on day of surgery. Remove all body piercings prior to arrival. All jewelry must be removed to avoid injury. We will not tape wedding rings/bands. 10. If you have dentures, they may be removed before going to the OR, we will provide a container for them. If you wear contact lenses or glasses, they will be removed; please bring a case for them. 11. Do not remove hearing aids, you will wear them to surgery. 12. Please shower morning of surgery or night before. Do not wear any makeup (including no eye makeup) lotion, powder, or deodorant. Nail vietnamese must be removed if vietnamese is on operative extremity. Please do not shave operative extremity or near the operative extremity. 13. If you have a Living Will and Durable Power of Floral Associate for Healthcare, please bring a copy. 14. For your SAFETY notify your Surgeon if you develop any illness between now and surgery time, cough, cold, fever, sore throat, nausea, vomiting, rash, etc. 15. If you receive a blood bracelet remember to bring it with you on the day of surgery. 16. Bring your photo ID and insurance card. If your insurance coverage requires a co-payment or deductible, please bring the payment with you. We accept Visa, MasterCard, [employer] and [employer] credit cards. Our Customer Service Representatives will be available by telephone for any questions regarding financial issues at [phone]. 17. Other . 18. If you wear CPAP or BIPAP, please bring your mask and the machine settings (not the actual machine) with you to the hospital on the day of your procedure. The hospital will supply a machine to use during your hospital stay. 19. If you wear oxygen, please bring it with you to use during your travel to and from the hospital. Following your admission, the hospital will supply oxygen for your use. I acknowledge receipt of the instructions indicated above. If you have any questions or concerns please feel free to call the contact number. We want to make sure you feel SAFE and have an EXCELLENT experience while you are here. Same Day Surgery [facility] - [facility] at [phone]; [facility]: Entrance 1A, go to [address] [place] [address] on the [facility] nurse's station documented in this encounter Medications at Time [...] 9:00 AM EST Appointment [facility] [address] [place] [address] Jomar Kim MD [address] [place], [place] [id number] documented as of this encounter Goals Goal [...] 1:37 PM EDT ? Stationary ECG Study ?[facility] ? Interpretive Statements ? SINUS RHYTHM POSSIBLE ANTERIOR MYOCARDIAL INFARCTION, PROBABLY OLD Electronically Signed On 01-04-2017 13:37:31 EDT by Nohelia Guadarrama MD Narrative Procedure Note Gaye Guadarrama MD - 01/04/2017 IMPRESS[address] ECG Study [facility] Interpretive Statements SINUS RHYTHM POSSIBLE ANTERIOR MYOCARDIAL INFARCTION, PROBABLY OLD Electronically Signed On 01-04-2017 13:37:31 EDT by Nohelia Guadarrama MD us Katherine Messer NP IMG ECG ORDERABLES Fi nal Result documented in this encounter Visit Diagnoses Diagnosis Preop testing- Primary Preoperative examination, unspecified Intractable chronic cluster headache Chronic cluster headache documented in this encounter Discontinued Medications Medication Sig Discontinue Reason Start Date End Da te ergocalciferol (VITAMIN D) 50,000 unit Oral CapsuleIndications:Vit pavon D deficiency Take 1 capsule by mouth once a week. Removed During Admission Medication Review 05/31/2014 01/03/2017 documented as of this encounter Historical Medications * This list may reflect changes made after this encounter. cholecalciferol, vitamin D3, 1,000 unit Oral Tablet Take 1 Tab by mouth daily. 01/06/2018 added in this encounter Care Teams Fruit Inspector Relationship Specialty Start Date End Date Annalise Oneill MD [address] [place] [address] PCP - General Family Medicine 11/19/16 08/19/18 Garett Holt MD Internal Medicine-Gastroenterology 12/22/12 Ruiz Stokes MD [address] [place] [address] Internal Medicine-Cardiovascular Disease 07/25/14 Yenny Schwab MD [address]51 [facility] Building [address] [place] [address] Internal Medicine-Rheumatology 12/11/16 documented as of this encounter
--- OUTSIDE RECORDS SUMMARY | 2024-07-22 16:14 | XMS_ITS | Encounter Summary ---
Author Organization [place] [address] Care Team Providers Care Religious Assistant Name Role Phone Garett Holt MD Unavailable [phone] Ruiz Stokes MD Unavailable [phone] Annalise Oneill MD Primary Care Provider [phone] Yenny Schwab MD Unavailable [phone] Reason for Visit * Reason Comments Other discuss temporal art breana biopsy * Consultation (Urgent) - Closed Specialty Diagnoses / Procedures Referred By Contac t Referred To Contact Surgery / General Surgery Diagnoses Right sided temporal headache Elevated sed rate Annalise Oneill MD [address] [place] [address] Phone: tel: fax: Christa Chavez MD Phone: tel: fax: Referral ID Status Reason Start Date Expiration Date Visits Re quested Visits Authorized [id number] Closed 11/20/2016 11/20/2017 99 99 Encounter Details Date Type Department Care Team (Latest Contact Info) Description 12/26/2016 10:00 AM EDT Office Visit [facility] S[facility] [address] [address] Christa Chavez MD [address] [place] [place] [address] Chronic nonintractable headache, unspecified headache type (Primary Dx) Social History Tobacco Use Types [...] Sign Reading Time Taken Comments Blood Pressure 134/62 12/26/2016 10:31 AM EDT Pulse 56 12/26/2016 10:31 AM EDT Temperature - - Respiratory Rate - - Oxygen Saturation - - Inhaled Oxygen Concentration - - Weight 117.7 kg (259 lb 6.4 oz) 017 10:31 AM EDT Height 162.6 cm (5' 4 ) 12/26/2016 10:3 1 AM EDT Body Mass Index 44.53 12/26/2016 10:31 AM EDT documented in this encounter Progress Notes * Christa Chavez MD - 12/26/2016 10:00 AM [...] Follow-up on file. documented in this encounter Miscellaneous Notes * Patient Instructions - Jo Patricia RMA - 12/26/2016 10:00 AM EDT You may be contacted by [...] 9:00 AM EST Appointment [facility] [address] [place] [address] Jomar Kim MD [address] [place] [address] documented as of this encounter [...] of this encounter Visit Diagnoses Diagnosis Chronic nonintractable headache, unspecified headache type- Primary documented in this encounter Care Teams Religious Assistant Relationship Specialty Start Date End Date Annalise Oneill MD [address] [place] [phone] PCP - General Family Medicine 11/19/16 08/19/18 Garett Holt MD Internal Medicine-Gastroenterology 12/22/12 Ruiz Stokes MD [address] [place] [address] Internal Medicine-Cardiovascular Disease 07/25/14 Yenny Schwab MD [address] [address] Internal Medicine-Rheumatology 12/11/16 documented as of this encounter
--- OUTSIDE RECORDS SUMMARY | 2024-07-22 16:14 | XMS_ITS | Encounter Summary ---
Author Organization [place] [address] Care Team Providers Care Mailroom Messenger Name Role Phone Garett Holt MD Unavailable [phone] Ruiz Stokes MD Unavailable [phone] Annalise Oneill MD Primary Care Provider Yenny Schwab MD Unavailable [phone] Reason for Visit * Auth/Cert/Inpt Specialty Diagnoses / Procedures Referred By Contac t Referred To Contact Diagnoses Intractable chronic cluster headache Intractable chronic cluster headache [G44.021] Procedures AR TEMPORAL ARTERY LIGATN OR BX RIGHT TEMPORAL ARTERY BIOPSY Referral ID Status Reason Start Date Expiration Date Visits Re quested Visits Authorized [id number] 1 1 Encounter Details Date Type Department Care Team (Latest Contact Info) Description 01/03/2017 9:12 AM EDT - 01/06/2017 3:29 PM EDT Hospital Encounter [facility] [address] [place] [address] Christa Chavez MD [address] [place] [address] Discharge Disposition: Home or Self [...] this encounter Discharge Instructions * Discharge Instructions* Christa Chavez MD - 01/06/2017 2:32 PM EDT +++++++++++++++++++++++++++++++++++++++++++++++++++++++++++++++++++ [facility] Discharge Instructions - Following Anesthesia We [...] or vomiting. 5. Walk! 6. Please call [phone] for a follow-up appointment in 7 to [...] Code Departure Means Destination Home or Self [facility] documented in this encounter H&P Notes * [...] Nito Chavez M.D. By: Evelia Job ID: [id number] Doc ID: [id number] * Christa Chavez MD - 01/06/2017 2:31 PM EDT [facility] OPERATIVE/PROCEDURE NOTE Alyssa Campos January 06, 2017 Body mass index is 43.24 kg/(m^2). There are no active hospital problems to display for this patient. PRE-OP DIAGNOSIS: Intractable chronic cluster headache [G44.021] POST-OP DIAGNOSIS: Intractable chronic cluster headache [G44.021] PROCEDURE(S): Procedure(s): RIGHT TEMPORAL ARTERY BIOPSY SURGEON(S): Surgeon(s) and Role: * Christa Chavez MD - Primary OR STAFF: General Dentist: Molly Beauchamp, MATT; Lyssa Rm RN Scrub Brown: Estrella Blank, MARTHA; Kellie Golden RN Scrub Assist: Alex Winters CSA ANESTHESIA: Monitored Anesthesia Care SPECIMENS: right temporal artery ESTIMATED BLOOD LOSS: 5 mL FINDINGS: DISPOSITION/POST PROC COURSE: Stable to Post Anesthesia Care Unit Christa Chavez MD Date: 01/06/2017 documented in this encounter Nursing Notes * Lorin Nice RN - 01/06/2017 3:28 PM EDT Patient and patient's responsible republican given discharge instructions, verbalized understanding and agreed with treatment plan. 1 printed rx for percocet given. Instructed not to drink alcohol, drive or take tylenol while taking narcotic. Patient drinking without difficulty. Patient wheeled out of [facility] in stable condition with visitor. * Yamini Chicas RN - 01/06/2017 10:03 AM EDT Pt had 3 unsuccessful iv attempts by 2 different RNs prior to IV being placed in right upper arm. documented in this encounter Plan of Treatment Upcoming Encounters Date Type Department Care Team (Late st Contact Info) Description 07/29/2024 9:00 AM EST Appointment [facility] [address] [place], [place] [id number] Jomar Kim MD [address] [place] [address] documented as of this encounter [...] Number ?Collected Date/Time ? Received Date/Time ? [id number] ? 01/06/17 14:33 EDT ?01/07/17 08:24 EDT ? Diagnosis ? Right temporal artery, biopsy: ? - Temporal artery with no significant pathologic abnormality. ? - No evidence of arteritis. ? AYAKA CHLOE ? (Electronically signed by) ? Verified: 01/08/2017 ? [facility] Laboratory ? Clinical Information ? Intractable chronic [...] and the findings corroborate the ? diagnosis. [facility] 01/06/2017 2:33 PM EDT [facility] Nito Chavez MD PATHOLOGY ORDERABLES Final Resul t [facility] [address] [place] [address] * (ABNORMAL) GLUCOSE METER POC (01/06/2017 9:36 AM EDT) Glucose Meter POC 128(H) 70 - 100 mg/dL [facility] Sample Type Capillary [facility] Patient Status Non-Critical Patient [facility] Blood specimen (specimen) 01/06/2017 9:36 AM EDT 01/06/2017 9:36 AM EDT us M Nito Chavez MD POINT OF CARE TEST ORDERABLES Fi nal Result [facility] [address] [place] [address] documented in this encounter Visit Diagnoses Not [...] Meds) New Bag 01/06/2017 1:33 PM EDT metoprolol (LOPRESSOR) tablet 25 mg 25 mg, [...] 5% (LEVAQUIN) IVPB 500 mg 1 01/06/2017 lidocaine 1% 10 mg/mL (1 %) injection 1 09/2016 metoprolol (LOPRESSOR) tablet 25 mg 1 01/06 Lab Orders Without Results Count Last Ordered D ate First Ordered Date PATHOLOGY TISSUE REQUEST 1 01/06/2017 documented in this encounter Care Teams Mailroom Messenger Relationship Specialty Start Date End Date Annalise Oneill MD [address] [place] [address] [place] [address] PCP - General Family Medicine 11/19/16 08/19/18 Garett Holt MD Internal Medicine-Gastroenterology 12/22/12 Ruiz Stokes MD [address] [facility] [place] [address] Internal Medicine-Cardiovascular Disease 07/25/14 Yenny Schwab MD [address] [place] [address] Internal Medicine-Rheumatology 12/11/16 documented as of this encounter
--- OUTSIDE RECORDS SUMMARY | 2024-07-22 16:14 | XMS_ITS | Encounter Summary ---
Author Organization [place] [address] Care Team Providers Care Competitive Intelligence Analyst Name Role Phone Garett Holt MD Unavailable [phone] Ruiz Stokes MD Unavailable [phone] Annalise Oneill MD Primary Care Provider [phone] Yenny Schwab MD Unavailable [phone] Reason for Visit * Reason Onset Date Comments Follow-up 01/17/2017 Encounter Details Date Type Department Care Team (Late st Contact Info) Description 01/17/2017 Telephone [facility] Rheumatology [facility] [address] [address] Yenny Schwab MD [address] [address] Follow-up Social History Tobacco Use Types Packs/Day [...] Telephone Encounter - Yenny Schwab MD - 01/17/2017 11:24 AM EDT The patient called this morning and needed to reschedule the appointment since her transportation did not make it. She was rescheduled for 02/10. I tried to call her but nobody answered at home. I would like to see her early next week due to abnormal lab work and possible TA. I called her daughter and son and left both of them messages to ask Mrs. Jamil to call our office and reschedule for Sunday 01/21 with Alexis. documented in this encounter Plan of Treatment Upcoming Encounters Date Type Department Care Team (Late st Contact Info) Description 07/29/2024 9:00 AM EST Appointment [facility] [address] [place], [place] [id number] Jomar Kim MD [address] [place] [address] documented as of this encounter [...] on filedocumented in this encounter Care Teams Competitive Intelligence Analyst Relationship Specialty Start Date End Date Annalise Oneill MD [address] [place] [address] PCP - General Family Medicine 11/19/16 08/19/18 Garett Holt MD Internal Medicine-Gastroenterology 12/22/12 Ruiz Stokes MD [address] [facility] [place] [address] Internal Medicine-Cardiovascular Disease 07/25/14 Yenny Schwab MD [address] [facility] [address] [place] [address] Internal Medicine-Rheumatology 12/11/16 documented as of this encounter
--- OUTSIDE RECORDS SUMMARY | 2024-07-22 16:15 | XMS_ITS | Encounter Summary ---
Author Organization [place] [address] Care Team Providers Care Supervisor Sunglasses Name Role Phone Garett Holt MD Unavailable [phone] Ruiz Stokes MD Unavailable [phone] Annalise Oneill MD Primary Care Provider [phone] Encounter Details Date Type Department Care Team (Latest Contact Info) Description 12/04/2016 12:00 PM EDT - 12/04/2016 11:59 PM EDT Hospital Encounter [facility] [address] [place] [address] PMR (polymyalgia rheumatica) (HCC); Elevated sed rate Discharge Disposition: Home or [...] this encounter Medications at Time of Discharge carvedilol (COREG) 6.25 mg Oral Tablet Take [...] 9:00 AM EST Appointment [facility] [address] [place] [address] Jomar Kim MD [address] [place] [address] Scheduled Orders Name Type Priority Associated Diagnoses Orde r Schedule OP VENIPUNCTURE CHARGE Lab Timed PMR (polymyalgia rheumatica) (HCC) Elevated sed rate One Time for 1 Occurrences starting 12/04/2016 until 12/04/2016 documented as of this encounter Goals Goal [...] Associated Diagnosis Comments SEDIMENTATION RATE AUTOMATED Routine 12/04/2016 12:00 PM EDT PMR (polymyalgia rheumatica) (HCC) Elevated sed rate documented in this encounter Results * (ABNORMAL) SEDIMENTATION RATE AUTOMATED (12/04/2016 12:00 PM EDT) Sed Rate 84(H) 0 - 30 mm/hr [facility] Blood specimen (specimen) UPPER LIMB STRUCTURE / Unknown 12/04/2016 12:00 PM EDT 12/04/2016 2:19 PM EDT us Annalise Oneill MD HEMATOLOGY ORDERABLES Final R esult [facility] [address] [place] [address] documented in this encounter Visit Diagnoses Diagnosis PMR (polymyalgia rheumatica) (HCC) Polymyalgia rheumatica Elevated sed rate Elevated sedimentation rate documented in this encounter Care Teams Supervisor Sunglasses Relationship Specialty Start Date End Date Annalise Oneill MD [address] [place] [phone] PCP - General Family Medicine 11/19/16 08/19/18 Garett Holt MD Internal Medicine-Gastroenterology 12/22/12 Ruiz Stokes MD [address] [place] [address] Internal Medicine-Cardiovascular Disease 07/25/14 documented as of this encounter
--- OUTSIDE RECORDS SUMMARY | 2024-07-22 16:15 | XMS_ITS | Encounter Summary ---
Author Organization [place] [address] Care Team Providers Care Beadworker Name Role Phone Garett Holt MD Unavailable [phone] Ruiz Stokes MD Unavailable [phone] Cristiane Shirley MD Primary Care Provider [phone] Reason for Visit * Reason Onset Date Comments Referral Follow-up 08/22/2016 Encounter Details Date Type Department Care Team (Late st Contact Info) Description 08/22/2016 Telephone [facility] [address] [place] [address] Cristiane Shirley MD [address] [place] [address] Referral Follow-up Social History Tobacco Use Types Packs/Day [...] Miscellaneous Notes * Telephone Encounter - Nathalie Koroma Amada - 08/22/2016 10:00 AM EST We referred you to [facility] in July and do not see that you have had an appointment with them yet. If you still need an appointment you please call their office to schedule. If you have already had an appointment with them, then please disregard this letter. documented in this encounter Plan of Treatment Upcoming Encounters Date Type Department Care Team (Late st Contact Info) Description 07/29/2024 9:00 AM EST Appointment [facility] [address] [place] [address] Jomar Kim MD [address] [place] [address] documented as of this encounter Visit Diagnoses Not on filedocumented in this encounter Care Teams Beadworker Relationship Specialty Start Date End Date Cristiane Shirley MD [address] [place] [address] PCP - General Family Medicine 12/28/14 11/18/16 Garett Holt MD Internal Medicine-Gastroenterology 12/22/12 Ruiz Stokes MD [address] [place] [address] Internal Medicine-Cardiovascular Disease 07/25/14 documented as of this encounter
--- OUTSIDE RECORDS SUMMARY | 2024-07-22 16:15 | XMS_ITS | Encounter Summary ---
Author [place] [address] Care Team Providers Care [employer] Name Role Phone Garett Holt MD Unavailable [phone] Ruiz Stokes MD Unavailable [phone] Cristiane Shirley MD Primary Care Provider Reason for Visit * Reason Onset Date Comments Medication Refill 06/05/2016 Encounter Details Date Type Department Care Team (Late st Contact Info) Description 06/05/2016 Refill [facility] [address] [place] [address] Cristiane Shirley MD [address] [place] [id number] Medication Refill Social History Tobacco Use Types [...] Filled Start Date End Date docusate sodium (DOK) 100 mg Oral Capsule Take 1 Cap by mouth 2 times daily. 60 Cap 1 06/05/2016 10/09/2016 lisinopril (PRINIVIL;ZESTRIL) 10 mg Oral TabletIndications:E ssential hypertension Take 2 Tabs by mouth daily. 60 Tab 1 06/05/2016 10/23/2016 amLODIPine (NORVASC) 10 mg Oral Tablet Take 1 Tab by mouth daily. 30 Tab 1 06/05/2016 10/09/2016 docusate sodium (DOK) 100 mg Oral Capsule Take 1 Cap by mouth 2 times daily. 60 Cap 1 06/05/2016 06/05/2016 amLODIPine (NORVASC) 10 mg Oral Tablet Take 1 Tab by mouth daily. 30 Tab 1 06/05/2016 06/05/2016 lisinopril (PRINIVIL;ZESTRIL) 10 mg Oral TabletIndications:E ssential hypertension Take 2 Tabs by mouth daily. 60 Tab 1 06/05/2016 06/05/2016 documented in this encounter Miscellaneous Notes * Telephone Encounter - Brittanie Amador - 06/05/2016 9:57 AM EDT Requesting a refill for Lisinopril Amlodipine Docusate Lakesha Harrell documented in this encounter Plan of Treatment Upcoming Encounters Date Type Department Care Team (Late st Contact Info) Description 07/29/2024 9:00 AM EST Appointment [facility] [address] [place] [address] Jomar Kim MD [address] [place] [address] documented as of this encounter Visit Diagnoses Diagnosis Essential hypertension Unspecified essential hypertension documented in this encounter Discontinued Medications Medication Sig Discontinue Reason Start Date End Da te lisinopril (PRINIVIL;ZESTRIL) 10 mg Oral TabletIndications:Essentia l hypertension Take 2 Tabs by mouth daily. Reorder 11/15/2015 06/05/2016 amLODIPine (NORVASC) 10 mg Oral Tablet TAKE 1 TAB BY MOUTH DAILY. Reorder 05/14/2016 06/05/2016 DOK 100 mg Oral Capsule TAKE 1 CAP BY MOUTH 2 TIMES DAILY FOR 30 DAYS. Reorder 04/05/2016 06/05/2016 amLODIPine (NORVASC) 10 mg Oral Tablet Take 1 Tab by mouth daily. Reorder 06/05/2016 06/05/2016 lisinopril (PRINIVIL;ZESTRIL) 10 mg Oral TabletIndications:Essentia l hypertension Take 2 Tabs by mouth daily. Reorder 06/05/2016 06/05/2016 docusate sodium (DOK) 100 mg Oral Capsule Take 1 Cap by mouth 2 times daily. Reorder 06/05/2016 06/05/2016 documented as of this encounter Care Teams [employer] Relationship Specialty Start Date End Date Cristiane Shirley MD [address] [place] [address] PCP - General Family Medicine 12/28/14 11/18/16 Garett Holt MD Internal Medicine-Gastroenterology 12/22/12 Ruiz Stokes MD [address] [place] [address] Internal Medicine-Cardiovascular Disease 07/25/14 documented as of this encounter
--- OUTSIDE RECORDS SUMMARY | 2024-07-22 16:15 | XMS_ITS | Encounter Summary ---
Author Organization [place] [address] Care Team Providers Care Material Planner Name Role Phone Garett Holt MD Unavailable [phone] Ruiz Stokes MD Unavailable [phone] Annalise Oneill MD Primary Care Provider [phone] Reason for Visit * Reason Comments Pain pt c/o pain in L ank le with swelling, bilat arms and bilat shoulders. Headache c/o pain in her head R side temporal area. Diabetes pt says she checks h er sugars, staying at 133 Hypertension Hyperlipidemia Encounter Details Date Type Department Care Team (Latest Contact Info) Description 11/19/2016 8:10 AM EDT Office Visit [facility] [address] [place] [address] Annalise Oneill MD [address] [place] [address] Type 2 diabetes mellitus without complication, unspecified mcc insulin use status (Primary Dx); Essential hypertension; Gastroesophageal reflux disease with esophagitis; Hyperlipidemia, unspecified hyperlipidemia type; Arthralgia, unspecified joint; Headache, unspecified headache type; Obesity, Class III, BMI 40-49.9 (morbid obesity) ([facility]) Social History Tobacco Use Types Packs/Day Years [...] Sign Reading Time Taken Comments Blood Pressure 132/80 11/19/2016 8:26 AM EDT Pulse 68 11/19/2016 8:26 AM EDT Temperature 36.6 ??C (97.8 ??F) 11/19/2016 8:26 AM ED T Respiratory Rate 16 11/19/2016 8:26 AM EDT Oxygen Saturation - - Inhaled Oxygen Concentration - - Weight 116.5 kg (256 lb 12.8 oz) 11/19/2016 8:26 AM EDT Height 162.6 cm (5' 4 ) 11/19/2016 8:26 AM EDT Body Mass Index 44.08 11/19/2016 8:26 AM EDT documented in this encounter Ordered Prescriptions Prescription Sig Dispense Quantity Refills Last Filled Start Date End Date atorvastatin (LIPITOR) 20 mg Oral TabletIndications:Hy perlipidemia, unspecified hyperlipidemia type Take 1 Tab by mouth daily. 30 Tab 2 11/20/2016 7 omeprazole (PRILOSEC) 20 mg Oral Capsule, Delayed Release(E.C.)Indicat ions:Gastroesophagea l reflux disease with esophagitis Take 1 Cap by mouth daily. 90 Cap 1 11/19/2016 7 simvastatin (ZOCOR) 10 mg Oral TabletIndications:Hy perlipidemia, unspecified hyperlipidemia type Take 1 Tab by mouth every evening. 90 Tab 1 11/19/2016 7 docusate sodium (STOOL SOFTENER) 100 mg Oral CapsuleIndications:G astroesophageal reflux disease with esophagitis Take 1 Cap by mouth 2 times daily. 180 Cap 1 11/19/2016 7 lisinopril (PRINIVIL;ZESTRIL) 10 mg Oral TabletIndications:Es sential hypertension Take 2 Tabs by mouth daily. 180 Tab 1 11/19/2016 7 amLODIPine (NORVASC) 10 mg Oral TabletIndications:Es sential hypertension Take 1 Tab by mouth daily. 90 Tab 1 11/19/2016 7 metFORMIN (GLUCOPHAGE) 500 mg Oral TabletIndications:Ty pe 2 diabetes mellitus without complication, unspecified superintendent container terminal insulin use status Take 1 Tab by mouth daily. with breakfast 90 Tab 1 11/19/2016 7 documented in this encounter Progress Notes * Annalise Oneill MD - 11/19/2016 8:10 AM EDT Subjective Subjective Chief Complaint Patient presents with ??? Pain pt c/o pain in L ankle with swelling, bilat arms and bilat shoulders. ??? Headache c/o pain in her head R side temporal area. ??? Diabetes pt says she checks her sugars, staying at 133 ??? Hypertension ??? Hyperlipidemia Ms. Jamil is a 61 y.o. female here for follow up on her chronic health problems including diabetestype II (see Active Problem List). Arms/shoulders pain Present 3-4 months No persisting decrease range of motion. No paresthesias Gets squeezing in the arm Not bothering her today. Bilateral knee pain and occasional leg weakness the past 3-4 days Right headache and ear pain. Present in the morning when she wakes daily for the past 2-3 wks occ blurred vision with both eyes No vision loss Some nausea She denies hx of migraine or headache problems Diabetes Mellitus Type II She is not having any problems with her current medications.. She does report new symptoms of possible diabetes sequelae, specifically RITTER's, dizziness occasionally. Home blood sugar records: sugars staying around 133 She has occasional episodes of hypoglycemia. Wt Readings from Last 3 Encounters: 11/19/16 256 lb 12.8 oz (116.5 kg) 07/09/16 258 lb (117 kg) 06/17/16 250 lb (113.4 kg) Body mass index is 44.08 kg/(m^2). [place] Body Weight [place] body weight: 54.7 kg (120 lb 9.5 oz) Adjusted ideal body weight: 79.4 kg (175 lb 1.2 oz) She does not check her weight daily. Working to lose weight: No Dietary Compliance: not following a diabetic diet and eats carbohydrates often Current exercise: none Lab Results Component Value Date HGBA1C 5.9 07/09/2016 HGBA1C 5.6 11/15/2015 HGBA1C 5.4 07/18/2015 Lab Results Component Value Date MICROALBUR 0 07/09/2016 URINEMICROAL 13.4 05/31/2014 Monofilament & Eye Exam 01/10/2014 12/28/2014 07/18/2015 11/15/2015 07/09/2016 Foot Exam Performed? - YES YES YES Yes R Posterior Tibial - Present Present Present Present L Posterior Tibial - Present Present Present Present R Dorsalis Pedis - Present Present Present Present L Dorsalis Pedis - Present Present Present Present R Monofilament - Present Present Present Present L Monofilament - Present Present Present Present Reflex Ankle R (optional) - - - - Normal Reflex Ankle L (optional) - - - - Normal R Inspection - Normal Normal Normal Normal L Inspection - Normal Normal Normal Normal Right Eye Exam No evidence of retinopathy No evidence of retinopathy No evidence of retinopathy No evidence of retinopathy No evidence of retinopathy Left Eye Exam No evidence of retinopathy No evidence of retinopathy No evidence of retinopathy No evidence of retinopathy No evidence of retinopathy Eye Exam Date 01/10/2014 - 07/18/2015 - - Eye exam current (within one year): No Foot exam current (within one year): No Sees a principal secretary at least once a year: No Hypertension Ms. Jamil denies any episodes of dizziness, lightheadedness, presyncope, syncope, headache. She is not adherent to low salt diet and she is avoiding excessive alcohol. She is not checking her BP at home. Hypertension Goals JNC 8 BP Age < 60 or CKD or DM < 140/90 Age > 60 < 150/90 The last office readings are as follows: BP Readings from Last 3 Encounters: 11/19/16 132/80 07/09/16 118/84 06/17/16 153/62 Hyperlipidemia Ms. Jamil is taking a statin drug to lower cholesterol and she is not having problems with the medication. Cholesterol Goals LDL Diabetes < 70 CAD < 100 Lab Results Component Value Date CHOLESTEROL 169 07/09/2016 CHOLESTEROL 175 11/15/2015 CHOLESTEROL 166 07/18/2015 Lab Results Component Value Date HDL 52 07/09/2016 HDL 57 11/15/2015 HDL 47 07/18/2015 Lab Results Component Value Date LDLCALC 91 07/09/2016 LDLCALC 91 11/15/2015 LDLCALC 79 07/18/2015 Lab Results Component Value Date TRIG 131 07/09/2016 TRIG 134 11/15/2015 TRIG 198 (H) 07/18/2015 No results found for: CHOLHDL Patient Active Problem List Diagnosis ??? Esophageal [...] Endometrial hyperplasia ??? History of endometrial cancer She currently uses tobacco products? no Review of Systems Constitutional: Negative for activity change, appetite change, fatigue and fever. Respiratory: Negative for chest tightness, shortness of breath and wheezing. Cardiovascular: Negative for chest pain, palpitations and leg swelling. Musculoskeletal: Positive for arthralgias and joint swelling. Neurological: Positive for headaches. Negative for dizziness. Objective Objective Visit Vitals ??? BP 132/80 (BP Location: Right arm, Patient Position: Sitting) ??? Pulse 68 ??? Temp 97.8 ??F (36.6 ??C) (Temporal) ??? Resp 16 ??? Ht 5' 4 (1.626 m) ??? Wt 256 lb 12.8 oz (116.5 kg) ??? BMI 44.08 kg/m2 Physical Exam Constitutional: She is oriented to person, place, and time. She appears well- developed and well-nourished. No distress. HENT: Head: Normocephalic. Right Ear: Tympanic membrane and external ear normal. Left Ear: Tympanic membrane and external ear normal. Nose: Nose normal. No mucosal edema. Mouth/Throat: Oropharynx is clear and moist. No oropharyngeal exudate or posterior oropharyngeal erythema. Eyes: Conjunctivae and EOM are normal. Pupils are equal, round, and reactive to light. No temp artery tenderness Neck: Normal range of motion. Neck supple. [...] There is no tenderness. Musculoskeletal: She exhibits no edema. Bilateral arms with full range of motion Lymphadenopathy: She has no cervical adenopathy. Neurological: She is alert and oriented to person, place, and time. She has normal reflexes. No cranial nerve deficit. Left foot drop. Normal upper and lower extremity strength in deltoids and quads Skin: Skin is warm and dry. No lesion and no rash noted. Psychiatric: She has a normal mood and affect. Her behavior is normal. Judgment normal. Vitals reviewed. Lab Results Component Value Date WBC 9.2 07/09/2016 HGB 11.4 (L) 07/09/2016 HCT 35.0 (L) 07/09/2016 PLT 245 07/09/2016 CHOLESTEROL 169 07/09/2016 LDLCALC 91 07/09/2016 HDL 52 07/09/2016 TRIG 131 07/09/2016 LDLCHOLESTER 131 (H) 05/17/2013 ALT 17 07/09/2016 AST 13 07/09/2016 NA 142 07/09/2016 K 4.8 07/09/2016 CL 102 07/09/2016 CREATININE 0.72 07/09/2016 BUN 15 07/09/2016 CO2 28 07/09/2016 TSH 1.480 07/09/2016 TSHREFLEX 1.530 11/08/2014 GLUCOSE 98 05/17/2013 GLU 106 (H) 07/09/2016 HGBA1C 5.9 07/09/2016 GFRNONAFRAM >60 07/09/2016 CrCl cannot be calculated (Patient has no serum creatinine result on file.). Stage GFR Description I > 90 Normal kidney function but urine findings/structural/genetic kidney disease II 60-89 Mild reduction in function and other findings point to kidney disease III 30-59 Moderately reduced kidney function IV 15-29 Severely reduced kidney function V < 15 Very severe or end stage kidney failure Lab Results Component Value Date MICROALBUR 0 07/09/2016 URINEMICROAL 13.4 05/31/2014 UMAB/Cre ratio: Lab Results Component Value Date MICROALBCR 15 05/31/2014 Assessment and Plan Alyssa was seen today for pain, headache, diabetes, hypertension and hyperlipidemia. Diagnoses and all orders for this visit: Type 2 diabetes mellitus without complication, unspecified mcc insulin use status - metFORMIN (GLUCOPHAGE) 500 mg Oral Tablet; Take 1 Tab by mouth daily. with breakfast - Hemoglobin A1c; Future - Stable, patient having no issues Essential hypertension - amLODIPine (NORVASC) 10 mg Oral Tablet; Take 1 Tab by mouth daily. - lisinopril (PRINIVIL;ZESTRIL) 10 mg Oral Tablet; Take 2 Tabs by mouth daily. - Comprehensive Metabolic Panel; Future - CBC with Auto Diff; Future - TSH Reflex - Lab Collect; Future - Stable, patient having no issues Gastroesophageal reflux disease with esophagitis - docusate sodium (STOOL SOFTENER) 100 mg Oral Capsule; Take 1 Cap by mouth 2 times daily. - omeprazole (PRILOSEC) 20 mg Oral Capsule, Delayed Release(E.C.); Take 1 Cap by mouth daily. - Stable, patient having no issues Hyperlipidemia, unspecified hyperlipidemia type - simvastatin (ZOCOR) 10 mg Oral Tablet; Take 1 Tab by mouth every evening. - CBC with Auto Diff; Future - Lipid Panel Reflex; Future - Stable, patient having no issues - Creatine Kinase - Lab Collect; Future Arthralgia, unspecified joint - Sedimentation Rate Automated - Lab Collect; Future - C-Reactive Protein - Lab Collect; Future - Creatine Kinase - Lab Collect; Future Headache, unspecified headache type - Sedimentation Rate Automated - Lab Collect; Future - C-Reactive Protein - Lab Collect; Future Obesity, Class III, BMI 40-49.9 (morbid obesity) (HCC) - Weight loss discussed with patient Other orders - Cancel: pantoprazole (PROTONIX) 40 mg Oral Tablet, Delayed Release (E.C.); Take 1 Tab by mouth daily. - Cancel: Vitamin D 25 Hydroxy; Future Return in about 3 months (around 02/19/2017), or if symptoms worsen or fail to improve, for diabetes. Annalise Oneill MD [facility] Documentation Requirements Patient and friend was educated regarding the diagnosis, medication/treatment, goals, [...] inquired of any questions and answered accordingly. Medication Compliance - compliant most of the time Understanding of current medications - fair Self-Management Tools - home glucometer Self-Management Ability - fair Willingness to adopt healthy behaviors - fair Ms. Jamil has self management goals of: ?? A1C < 7.0 ?? BMI 18.5-24.9 ?? LDL < 70 ?? SBP at goal for age ?? DBP < 90 ?? No tobacco use Patient Barriers: no significant Existing barriers discussed and addressed in orders and /or referrals. documented in this encounter Miscellaneous Notes * Addendum Note - Macie Morrissey RN - 11/20/2016 1:26 PM EDTAddended by: MACIE MORRISSEY on: 11/20/2016 01:26 PM Modules accepted: Orders * Patient Instructions - Bridget Gao RMA - 11/19/2016 8:26 AM EDT Images from the original note were not included. Diabetes and Exercise Exercising regularly is important. It is not just about losing weight. It has many health benefits,such as: ?? Improving your overall fitness, flexibility, and endurance. ?? Increasing your bone density. ?? Helping with weight control. ?? Decreasing your body fat. ?? Increasing your muscle strength. ?? Reducing stress and tension. ?? Improving your overall health. People with diabetes who exercise gain additional benefits because exercise: ?? Reduces appetite. ?? Improves the body's use of blood sugar (glucose). ?? Helps lower or control blood glucose. ?? Decreases blood pressure. ?? Helps control blood lipids (such as cholesterol and triglycerides). ?? Improves the body's use of the hormone insulin by: Increasing the body's insulin sensitivity. Reducing the body's insulin needs. ?? Decreases the risk for heart disease because exercising: Lowers cholesterol and triglycerides levels. Increases the levels of good cholesterol (such as high-density lipoproteins [HDL]) in the body. Lowers blood glucose levels. YOUR ACTIVITY PLAN Choose an activity that you enjoy, and set realistic goals. To exercise safely, you should begin practicing any new physical activity slowly, and gradually increase the intensity of the exercise overtime. Your health care provider or elementary educator can help create an activity plan that works for you. General recommendations include: ?? Encouraging children to engage in at least 60 minutes of physical activity each day. ?? Stretching and performing strength training exercises, such as yoga or weight lifting, at least 2 times per week. ?? Performing a total of at least 150 minutes of moderate-intensity exercise each week, such as brisk walking or water aerobics. ?? Exercising at least 3 days per week, making sure you allow no more than 2 consecutive days to pass without exercising. ?? Avoiding long periods of inactivity (90 minutes or more). When you have to spend an extended period of time sitting down, take frequent breaks to walk or stretch. RECOMMENDATIONS FOR EXERCISING WITH TYPE 1 OR TYPE 2 DIABETES ?? Check your blood glucose before exercising. If blood glucose levels are greater than 240 mg/dL, check for urine ketones. Do not exercise if ketones are present. ?? Avoid injecting insulin into areas of the body that are going to be exercised. For example, avoid injecting insulin into: The arms when playing tennis. The legs when jogging. ?? Keep a record of: Food intake before and after you exercise. Expected peak times of insulin action. Blood glucose levels before and after you exercise. The type and amount of exercise you have done. ?? Review your records with your health care provider. Your health care provider will help you to develop guidelines for adjusting food intake and insulin amounts before and after exercising. ?? If you take insulin or oral hypoglycemic agents, watch for signs and symptoms of hypoglycemia. They include: Dizziness. Shaking. Sweating. Chills. Confusion. ?? Drink plenty of water while you exercise to prevent dehydration or heat stroke. Body water is lost during exercise and must be replaced. ?? Talk to your health care provider before starting an exercise program to make sure it is safe for you. Remember, almost any type of activity is better than none. This information is not intended to replace advice given to you by your health care provider. Make sure you discuss any questions you have with your health care provider. Document Released: 11/14/2004 Document Revised: 01/09/2016 Document Reviewed: 02/01/2014 [employer] Interactive Patient Education ??2016 [employer]. documented in this encounter Plan of Treatment Upcoming Encounters Date Type Department Care Team (Late st Contact Info) Description 07/29/2024 9:00 AM EST Appointment [facility] [address] [place], [place] [id number] Jomar Kim MD [address] [place], [place] [id number] documented as of this encounter Goals Goal Patient Goal Type Associated Problems Recent Progress Patient-Stated? Author Blood Pressure < 140/90 Blood Pressure 110/72(2023 2:44 PM EDT) No Rachel Rogers RMA BMI (Calculated) < 30 General 50.9(04/27/20 24 2:44 PM EDT) No Rachel Rogers RMA HEMOGLOBIN A1C < 7.0 Result Component 5.6( 4 3:04 PM EST) No Rachel Rogers RMA documented as of this encounter Results * CREATINE KINASE (11/19/2016 8:56 AM EDT) CK 50 26 - 192 IU/L [facility] Blood specimen (specimen) UPPER LIMB STRUCTURE / Unknown 11/19/2016 8:56 AM EDT 11/19/2016 2:53 PM EDT us Annalise Oneill MD CHEMISTRY ORDERABLES Final Re sult Performing Organization Address [facility] de Phone Number [facility] [address] [place] [address] * (ABNORMAL) C-REACTIVE PROTEIN (11/19/2016 8:56 AM EDT) CRP 21.93(H) <=5.00 mg/L [facility] Blood specimen (specimen) UPPER LIMB STRUCTURE / Unknown 11/19/2016 8:56 AM EDT 11/19/2016 2:53 PM EDT us Annalise Oneill MD CHEMISTRY ORDERABLES Final Re sult Performing Organization Address [facility] Phone Number [facility] [address] [place] [address] * (ABNORMAL) SEDIMENTATION RATE AUTOMATED (11/19/2016 8:56 AM EDT) Sed Rate 93(H) 0 - 30 mm/hr [facility] Blood specimen (specimen) UPPER LIMB STRUCTURE / Unknown 11/19/2016 8:56 AM EDT 11/19/2016 2:53 PM EDT us Annalise Oneill MD HEMATOLOGY ORDERABLES Final R esult Performing Organization Address [facility] Phone Number [facility] [address] [place] [address] * TSH REFLEX (11/19/2016 8:56 AM EDT) TSH Reflex 1.560 0.270 - 4.200 mcIU/mL [facility] Blood specimen (specimen) UPPER LIMB STRUCTURE / Unknown 11/19/2016 8:56 AM EDT 11/19/2016 2:53 PM EDT us Annalise Oneill MD CHEMISTRY ORDERABLES Final Re sult Performing Organization Address [facility] [place] [address] * (ABNORMAL) LIPID PANEL REFLEX (11/19/2016 8:56 AM EDT) Cholesterol 232(H) <=200 mg/dL [facility] Comment: < 200 ?Desirable 200 - 239 ? Borderline High >= 240 ?High Triglyceride 98 <=150 mg/dL [facility] Comment: < 150 ? Normal 150 - 199 ?Borderline High 200 - 499 ?High ??>= 500 ? Very High HDL 54 >=40 mg/dL [facility] Comment: ?? > 60 ?Optimal 40 - 60 ?Acceptable ?? < 40 ?Low Blood specimen (specimen) UPPER LIMB STRUCTURE / Unknown 11/19/2016 8:56 AM EDT 11/19/2016 2:53 PM EDT us Annalise Oneill MD CHEMISTRY ORDERABLES Final Re sult [facility] [address] [place] [address] * HEMOGLOBIN A1C (11/19/2016 8:56 AM EDT) Hgb A1c 6.3 <=7.0 % [facility] Comment: Reference Interval for Hgb A1c Hgb A1c ?Interpretation ? < 6.0 ?Non-Diabetic Range 6.0 - 7.0 ? ADA Therapeutic Target ??> 7.0 ? Action suggested Blood specimen (specimen) UPPER LIMB STRUCTURE / Unknown 11/19/2016 8:56 AM EDT 11/19/2016 2:53 PM EDT us Annalise Oneill MD CHEMISTRY ORDERABLES Final Re sult Performing Organization Address [facility] [place] [address] * (ABNORMAL) CBC WITH AUTO DIFF (11/19/2016 8:56 AM EDT) WBC 9.3 4.0 - 11.0 x10(3)/mcL [facility] RBC 4.25 3.80 - 5.10 x10(6)/mcL [facility] Hgb 11.5(L) 12.0 - 15.6 gm/dL [facility] Hct 36.4 35.7 - 45.9 % [facility] MCV 85.6 82.5 - 99.8 fL [facility] MCH 27.0 27.0 - 34.3 pg [facility] MCHC 31.6(L) 32.1 - 35.3 gm/dL [facility] RDW 15.1(H) 11.5 - 15.0 % [facility] Platelet 295 144 - 423 x10(3)/mcL [facility] MPV 8.0 6.8 - 10.8 fL [facility] Blood specimen (specimen) UPPER LIMB STRUCTURE / Unknown 11/19/2016 8:56 AM EDT 11/19/2016 2:53 PM EDT us Annalise Oneill MD HEMATOLOGY ORDERABLES Final R esult Performing Organization Address [facility] Co de Phone Number [facility] [address] [place] [address] * (ABNORMAL) COMPREHENSIVE METABOLIC PANEL (11/19/2016 8:56 AM EDT) Sodium 140 136 - 145 mmol/L [facility] Potassium 4.6 3.5 - 5.0 mmol/L [facility] Chloride 100 98 - 107 mmol/L [facility] Total CO2 27 22 - 29 mmol/L [facility] Anion Gap 13 7 - 16 mmol/L [facility] Calcium 10.0 8.8 - 10.2 mg/dL [facility] Glucose Lvl 111(H) 82 - 100 mg/dL [facility] BUN 17 8 - 23 mg/dL [facility] Creatinine 0.76 0.51 - 1.30 mg/dL [facility] Albumin 4.1 3.2 - 4.6 gm/dL [facility] Total Protein 7.8 6.4 - 8.3 gm/dL [facility] Bili Total 0.2 0.1 - 1.3 mg/dL [facility] AST 12 <=40 IU/L [facility] ALT 10 <=41 IU/L [facility] Alk Phos 73 35 - 104 IU/L [facility] GFR Afr Am >60 [facility] GFR Non Afr Am >60 [facility] Blood specimen (specimen) UPPER LIMB STRUCTURE / Unknown 11/19/2016 8:56 AM EDT 11/19/2016 2:53 PM EDT us Annalise Oneill MD CHEMISTRY ORDERABLES Edited R esult - Final [facility] [address] [place] [address] documented in this encounter Visit Diagnoses Diagnosis Type 2 diabetes mellitus without complication, unspecified superintendent container terminal insulin use status- Primary Essential hypertension Unspecified essential hypertension Gastroesophageal reflux disease with esophagitis Hyperlipidemia, unspecified hyperlipidemia type Arthralgia, unspecified joint Headache, unspecified headache type Obesity, Class III, BMI 40-49.9 (morbid obesity) (HCC) Morbid obesity documented in this encounter Discontinued Medications Medication Sig Discontinue Reason Start Date End Da te aluminum & magnesium hydroxide-simethicone 200-200-20 mg/5 mL Oral Suspension Take 15 mL by mouth every 6 hours as needed (after meals and at bedtime for the next week). And then PRN for discomfort DELETE-Therapy completed 06/17/2016 11/19/2016 carvedilol (COREG) 6.25 mg Oral Tablet TAKE 1 TAB BY MOUTH 2 TIMES DAILY (WITH MEALS). DELETE-Duplicate 05/14/2016 11/19/2016 DULoxetine (CYMBALTA) 30 mg Oral Capsule, Delayed Release(E.C.)Indications :DDD (degenerative disc disease), lumbosacral,Fibromyalgia Take 1 Cap by mouth daily. DELETE-Therapy completed 11/15/2015 11/19/2016 famotidine (PEPCID) 20 mg Oral Tablet Take 1 Tab by mouth 2 times daily. DELETE-Therapy completed 08/05/2016 11/19/2016 HYDROcodone-acetaminophe n (NORCO) 5-325 mg Oral Tablet 1 tab PO every 4-6 hours PRN DELETE-Therapy completed 05/21/2016 11/19/2016 iron polysaccharides (FERREX 150 FORTE PLUS) 150-60-25-1 [id number]-jp-czl-mg Oral CapsuleIndications:Anemi a Take 1 capsule by mouth daily (with breakfast). DELETE-Therapy completed 05/31/2014 11/19/2016 metroNIDAZOLE (FLAGYL) 500 mg Oral Tablet TAKE 1 TAB BY MOUTH 3 TIMES DAILY FOR 10 DAYS. DELETE-Therapy completed 08/05/2016 11/19/2016 naproxen sodium (ANAPROX) 550 mg Oral TabletIndications:Right leg pain Take 1 Tab by mouth 2 times daily as needed. Side effects 10/03/2014 11/19/2016 ondansetron (ZOFRAN ODT) 4 mg disintegrating tablet Take 1 Tab by mouth every 6 hours as needed for Nausea for up to 10 doses. DELETE-Therapy completed 04/02/2014 11/19/2016 polyethylene glycol (GLYCOLAX) 17 gram/dose Oral PowderIndications:Consti pation, unspecified constipation type Take 17 g by mouth 2 times daily. For constipation DELETE-Therapy completed 07/09/2016 11/19/2016 pantoprazole (PROTONIX) 40 mg Oral Tablet, Delayed Release (E.C.)Indications:Gastro esophageal reflux disease with esophagitis TAKE 1 TABLET BY MOUTH ONCE DAILY Alternate therapy 10/09/2016 11/19/2016 metFORMIN (GLUCOPHAGE) 500 mg Oral Tablet Take 1 Tab by mouth daily. with breakfast Reorder 10/23/2016 11/19/2016 amLODIPine (NORVASC) 10 mg Oral Tablet TAKE 1 TABLET BY MOUTH ONCE DAILY Reorder 10/09/2016 11/19/2016 lisinopril (PRINIVIL;ZESTRIL) 10 mg Oral TabletIndications:Essent ial hypertension TAKE 2 TABLETS BY MOUTH ONCE DAILY Reorder 10/23/2016 11/19/2016 STOOL SOFTENER 100 mg Oral Capsule TAKE 1 CAPSULE BY MOUTH TWICE DAILY Reorder 10/09/2016 11/19/2016 simvastatin (ZOCOR) 10 mg Oral TabletIndications:Hyperl ipidemia Take 1 Tab by mouth every evening. Reorder 11/15/2015 11/19/2016 omeprazole (PRILOSEC) 20 mg Oral Capsule, Delayed Release(E.C.) TAKE 1 CAPSULE BY MOUTH ONCE DAILY Reorder 10/23/2016 11/19/2016 simvastatin (ZOCOR) 10 mg Oral TabletIndications:Hyperl ipidemia, unspecified hyperlipidemia type Take 1 Tab by mouth every evening. Alternate therapy 11/19/2016 11/20/2016 documented as of this encounter Historical Medications * This list may reflect changes made after this encounter. fUROsemide (LASIX) 20 mg Oral Tablet Take 20 mg by mouth every 12 hours. 03/25/2017 spironolactone (ALDACTONE) 25 mg Oral Tablet Take 25 mg by mouth 2 times daily. 03/25/2017 bisoprolol (ZEBETA) 5 mg Oral Tablet Take 5 mg by mouth daily. 03/25/2017 added in this encounter Orders Nursing Count Last Ordered Date First Orde red Date HCC STABLE 1 11/19/2016 HCC WEIGHT LOSS 1 11/19/2016 documented in this encounter Care Teams Material Planner Relationship Specialty Start Date End Date Annalise Oneill MD [address] [place] [address] PCP - General Family Medicine 11/19/16 08/19/18 Garett Holt MD Internal Medicine-Gastroenterology 12/22/12 Ruiz Stokes MD [address] [place] [id number] Internal Medicine-Cardiovascular Disease 07/25/14 documented as of this encounter
--- OUTSIDE RECORDS SUMMARY | 2024-07-22 16:15 | XMS_ITS | Encounter Summary ---
Author Organization [place] [address] Care Team Providers Care Dairy Feed Worker Name Role Phone Garett Holt MD Unavailable [phone] Ruiz Stokes MD Unavailable [phone] Cristiane Shirley MD Primary Care Provider Reason for Visit * Reason Onset Date Comments Appointment Needed 05/28/2016 Encounter Details Date Type Department Care Team (Late st Contact Info) Description 05/28/2016 Telephone [facility] [address] [place] [address] Cristiane Shirley MD [address] [id number] Appointment Needed Social History Tobacco Use Types [...] encounter Miscellaneous Notes * Telephone Encounter - Ga Nathalieyasmin Ybarra - 05/28/2016 9:56 AM EDT Called patient to let them know that they needed to schedule a mammogram - Please have them call [phone] to schedule. documented in this encounter Plan of Treatment Upcoming Encounters Date Type Department Care Team (Late st Contact Info) Description 07/29/2024 9:00 AM EST Appointment [facility] [address] [place] [address] Jomar Kim MD [address] [place], [place] [id number] documented as of this encounter Visit Diagnoses Not on filedocumented in this encounter Care Teams Dairy Feed Worker Relationship Specialty Start Date End Date Cristiane Shirley MD [address] [place] [address] PCP - General Family Medicine 12/28/14 11/18/16 Garett Holt MD Internal Medicine-Gastroenterology 12/22/12 Ruiz Stokes MD [address] [place] [address] Internal Medicine-Cardiovascular Disease 07/25/14 documented as of this encounter
--- OUTSIDE RECORDS SUMMARY | 2024-07-22 16:15 | XMS_ITS | Encounter Summary ---
Author Organization [place] [address] Care Team Providers Care Reception Clerk Name Role Phone Garett Holt MD Unavailable [phone] Ruiz Stokes MD Unavailable [phone] Annalise Oneill MD Primary Care Provider [phone] Reason for Visit * Reason Comments Sinusitis s/s started 1 week a go, cough and congestion, SOB, nausea, RITTER Gait Problem having problems walk ing with L leg pain, she has brace but still c/o pain and swelling. Encounter Details Date Type Department Care Team (Late st Contact Info) Description 12/04/2016 10:50 AM EDT Office Visit [facility] [address] [place] [address] Annalise Oneill MD [address] [place] [address] PMR (polymyalgia rheumatica) ([facility]) (Primary Dx); Elevated sed rate; Seasonal allergic rhinitis due to pollen Social History Tobacco Use Types Packs/Day Years [...] Sign Reading Time Taken Comments Blood Pressure 122/76 12/04/2016 11:00 AM EDT Pulse 68 12/04/2016 11:00 AM EDT Temperature 36.4 ??C (97.6 ??F) 12/04/2016 1 1:00 AM EDT Respiratory Rate 16 12/04/2016 11:0 0 AM EDT Oxygen Saturation - - Inhaled Oxygen Concentration - - Weight 114.9 kg (253 lb 6.4 oz) 017 11:00 AM EDT Height 162.6 cm (5' 4 ) 12/04/2016 11:0 0 AM EDT Body Mass Index 43.5 12/04/2016 11:00 AM EDT documented in this encounter Ordered Prescriptions Prescription Sig Dispense Quantity Refills Last Filled Start Date End Date loratadine (CLARITIN) 10 mg Oral TabletIndications:S easonal allergic rhinitis due to pollen Take 1 Tab by mouth daily. 30 Tab 2 12/04/2016 07/01/2017 documented in this encounter Progress Notes * Annalise Oneill MD - 12/04/2016 10:50 AM EDT Subjective Alyssa Jamil is a 61 y.o. female Subjective Chief Complaint Patient presents with ??? Sinusitis s/s started 1 week ago, cough and congestion, SOB, nausea, RITTER ??? Gait Problem having problems walking with L leg pain, she has brace but still c/o pain and swelling. Clear sinus drainage + sneezing Mild frontal ritter Recently Evaluated for pmr and possible temporal arteritis. TA bx cancelled due to patient being sick Denies right temporal pain now or vision change Continues to have bilateral lower leg aching and perceived weakness. Shoulders feel better Has not been taking steroids as prescribed-- she states taking one twice day Blood sugars reported 180-200 Review of Systems Constitutional: Negative for activity change, appetite change, fatigue and fever. HENT: Positive for congestion and sinus pressure. Respiratory: Positive for cough and shortness of breath. Negative for wheezing. Cardiovascular: Negative for chest pain, palpitations and leg swelling. Musculoskeletal: Positive for gait problem and joint swelling. Neurological: Positive for headaches. Negative for dizziness. Objective Objective Visit Vitals ??? BP 122/76 (BP Location: Left arm, Patient Position: Sitting) ??? Pulse 68 ??? Temp 97.6 ??F (36.4 ??C) (Temporal) ??? Resp 16 ??? Ht 5' 4 (1.626 m) ??? Wt 253 lb 6.4 oz (114.9 kg) ??? BMI 43.5 kg/m2 Physical Exam Constitutional: She is oriented to person, place, and time. She appears well- developed and well-nourished. HENT: Head: Normocephalic. Right Ear: Tympanic membrane normal. Left Ear: Tympanic membrane normal. Nose: Mucosal edema and rhinorrhea present. Mouth/Throat: Oropharynx is clear and moist. Pale boggy turbinates Eyes: Conjunctivae are normal. Pupils are equal, round, and reactive to light. Neck: Normal range of motion. Neck supple. Cardiovascular: Normal rate, regular rhythm and normal heart sounds. Pulmonary/Chest: Effort normal and breath sounds normal. Abdominal: Soft. Bowel sounds are normal. There is no tenderness. Lymphadenopathy: She has no cervical adenopathy. Neurological: She is alert and oriented to person, place, and time. Skin: Skin is warm and dry. No rash noted. Psychiatric: She has a normal mood and affect. Judgment normal. Vitals reviewed. Assessment and Plan Alyssa was seen today for sinusitis and gait problem. Diagnoses and all orders for this visit: PMR (polymyalgia rheumatica) ([facility]) - Sedimentation Rate Automated - Lab Collect; Future Elevated sed rate - Sedimentation Rate Automated - Lab Collect; Future Seasonal allergic rhinitis due to pollen - loratadine (CLARITIN) 10 mg Oral Tablet; Take 1 Tab by mouth daily. temporal artery biopsy of low utility now that has been on steroids for > 1 wk Symptoms improved Not taking steroids correctly-- will call back and let me know how many she has left Recheck sed rate today. No Follow-up on file. Patient was educated [...] Notes * Patient Instructions - Bridget Gao MULU - 12/04/2016 11:55 AM EDT Sinusitis, Adult Sinusitis is redness, soreness, and inflammation of the paranasal sinuses. Paranasal sinuses are air pockets within the bones of your face. They are located beneath your eyes, in the middle of your forehead, and above your eyes. In healthy paranasal sinuses, mucus is able to drain out, and air is able to circulate through them by way of your nose. However, when your paranasal sinuses are inflamed, mucus and air can become trapped. This can allow bacteria and other germs to grow and cause infection. Sinusitis can develop quickly and last only a short time (acute) or continue over a long period (chronic). Sinusitis that lasts for more than 12 weeks is considered chronic. CAUSES Causes of sinusitis include: ?? Allergies. ?? Structural abnormalities, such as displacement of the cartilage that separates your nostrils (deviated septum), which can decrease the air flow through your nose and sinuses and affect sinus drainage. ?? Functional abnormalities, such as when the small hairs (cilia) that line your sinuses and help remove mucus do not work properly or are not present. SIGNS AND SYMPTOMS Symptoms of acute and chronic sinusitis are the same. The primary symptoms are pain and pressure around the affected sinuses. Other symptoms include: ?? Upper toothache. ?? Earache. ?? Headache. ?? Bad breath. ?? Decreased sense of smell and taste. ?? A cough, which worsens when you are lying flat. ?? Fatigue. ?? Fever. ?? Thick drainage from your nose, which often is green and may contain pus (purulent). ?? Swelling and warmth over the affected sinuses. DIAGNOSIS Your health care provider will perform a physical exam. During your exam, your health care providermay perform any of the following to help determine if you have acute sinusitis or chronic sinusitis: ?? Look in your nose for signs of abnormal growths in your nostrils (nasal polyps). ?? Tap over the affected sinus to check for signs of infection. ?? View the inside of your sinuses using an imaging device that has a light attached (endoscope). If your health care provider suspects that you have chronic sinusitis, one or more of the followingtests may be recommended: ?? Allergy tests. ?? Nasal culture. A sample of mucus is taken from your nose, sent to a lab, and screened for bacteria. ?? Nasal cytology. A sample of mucus is taken from your nose and examined by your health care provider to determine if your sinusitis is related to an allergy. TREATMENT Most cases of acute sinusitis are related to a viral infection and will resolve on their own [id number] days. Sometimes, medicines are prescribed to help relieve symptoms of both acute and chronic sinusitis. These may include pain medicines, decongestants, nasal steroid sprays, or saline sprays. However, for sinusitis related to a bacterial infection, your health care provider will prescribe antibiotic medicines. These are medicines that will help kill the bacteria causing the infection. Rarely, sinusitis is caused by a fungal infection. In these cases, your health care provider will prescribe antifungal medicine. For some cases of chronic sinusitis, surgery is needed. Generally, these are cases in which sinusitis recurs more than 3 times per year, despite other treatments. HOME CARE INSTRUCTIONS ?? Drink plenty of water. Water helps thin the mucus so your sinuses can drain more easily. ?? Use a humidifier. ?? Inhale steam 3-4 times a day (for example, sit in the bathroom with the shower running). ?? Apply a warm, moist washcloth to your face 3-4 times a day, or as directed by your health care provider. ?? Use saline nasal sprays to help moisten and clean your sinuses. ?? Take medicines only as directed by your health care provider. ?? If you were prescribed either an antibiotic or antifungal medicine, finish it all even if you start to feel better. SEEK IMMEDIATE MEDICAL CARE IF: ?? You have increasing pain or severe headaches. ?? You have nausea, vomiting, or drowsiness. ?? You have swelling around your face. ?? You have vision problems. ?? You have a stiff neck. ?? You have difficulty breathing. This information is not intended to replace advice given to you by your health care provider. Make sure you discuss any questions you have with your health care provider. Document Released: 08/25/2006 Document Revised: 09/15/2015 Document Reviewed: 09/08/2012 [employer] Interactive Patient Education ??2016 [employer]. Polymyalgia Rheumatica Polymyalgia rheumatica (also called PMR [...] a specialist in arthritis and inflammatory diseases (certified physician's assistant). TREATMENT The goal of treatment is relief [...] 10/02/2005 Document Revised: 08/11/2013 Document Reviewed: 03/06/2016 [employer] Interactive Patient Education ??2015 [employer]. documented in this encounter Plan of Treatment Upcoming Encounters Date Type Department Care Team (Late st Contact Info) Description 07/29/2024 9:00 AM EST Appointment [facility] [address] [place] [address] Jomar Kim MD [address] [place] [address] [place] [address] documented as of this encounter [...] Sed Rate 84(H) 0 - 30 mm/hr [facility] Blood specimen (specimen) UPPER LIMB STRUCTURE / Unknown 12/04/2016 12:00 PM EDT 12/04/2016 2:19 PM EDT us Annalise Oneill MD HEMATOLOGY ORDERABLES Final R esult [facility] [address] [place] [address] documented in this encounter Visit Diagnoses Diagnosis PMR (polymyalgia rheumatica) (HCC)- Primary Polymyalgia rheumatica Elevated sed rate Elevated sedimentation rate Seasonal allergic rhinitis due to pollen documented in this encounter Care Teams Reception Clerk Relationship Specialty Start Date End Date Annalise Oneill MD [address] [place] [address] PCP - General Family Medicine 11/19/16 08/19/18 Garett Holt MD Internal Medicine-Gastroenterology 12/22/12 Ruiz Stokes MD [address] [place] [address] Internal Medicine-Cardiovascular Disease 07/25/14 documented as of this encounter
--- OUTSIDE RECORDS SUMMARY | 2024-07-22 16:15 | XMS_ITS | Encounter Summary ---
Author Organization [place] [address] Care Team Providers Care Surveillance Inspector Name Role Phone Garett Holt MD Unavailable [phone] Ruiz Stokes MD Unavailable [phone] Annalise Oneill MD Primary Care Provider [phone] Reason for Referral * Consultation (Urgent) - Closed Specialty Diagnoses / Procedures Referred By Ron bansal Referred To Contact Surgery / General Surgery Diagnoses Right sided temporal headache Elevated sed rate Annalise Oneill MD [address] [place] [address] Phone: tel: fax: Christa Chavez MD Phone: tel: fax: Referral ID Status Reason Start Date Expiration Date Visits Re quested Visits Authorized [id number] Closed 11/20/2016 11/20/2017 99 99 Comments Possible temporal arteritis. Need temporal artery biopsy * Consultation (Urgent) - Closed Specialty Diagnoses / Procedures Referred By Contact Referred To Contact Internal Medicine-Rheumatology / Rheumatology Diagnoses PMR (polymyalgia rheumatica) (HCC) Right sided temporal headache Elevated sed rate Type 2 diabetes mellitus without complication, unspecified intermediate card tender insulin use status Annalise Oneill MD [address] [place] [address] Phone: tel:[phone] fax:[phone] [facility] [address] [address] Phone: tel: fax: Referral ID Status Reason Start Date Expiration Date Visits Re quested Visits Authorized [id number] Closed 11/20/2016 11/20/2017 99 99 Encounter Details Date Type Department Care Team (Late st Contact Info) Description 11/20/2016 Orders Only [facility] [address] [place] [address] Annalise Oneill MD [address] [place] [address] PMR (polymyalgia rheumatica) ([facility]) (Primary Dx); Right sided temporal headache; Elevated sed rate; Type 2 diabetes mellitus without complication, unspecified prison insulin use status Social History Tobacco Use [...] End Date predniSONE (DELTASONE) 20 mg Oral TabletIndications:P MR (polymyalgia rheumatica) ([facility]),Right sided temporal headache,Elevated sed rate 3 tab daily for 3 days then 2 tab daily for 3 days then 1 tab daily for 3 days then 1/2 tab daily for 3 days. 20 Tab 11/20/2016 12/11/2016 documented in this encounter Plan of Treatment Upcoming Encounters Date Type Department Care Team (Late st Contact Info) Description 07/29/2024 9:00 AM EST Appointment [facility] [address] [place] [address] Jomar Kim MD [address] [facility] [place] [address] Scheduled Referrals Name Type Priority Associated Diagnoses Orde r Schedule AMB REFERRAL TO RHEUMATOLOGY Outpatient Referral Routine PMR (polymyalgia rheumatica) (HCC) Right sided temporal headache Elevated sed rate Type 2 diabetes mellitus without complication, unspecified prison insulin use status Ordered: 11/20/2016 AMB REFERRAL TO GENERAL SURGERY Outpatient Referral Routine Right sided temporal headache Elevated sed rate Ordered: 11/20/2016 documented as of this encounter Goals Goal [...] as of this encounter Visit Diagnoses Diagnosis PMR (polymyalgia rheumatica) (HCC)- Primary Polymyalgia rheumatica Right sided temporal headache Headache Elevated sed rate Elevated sedimentation rate Type 2 diabetes mellitus without complication, unspecified prison insulin use status documented in this encounter Care Teams Surveillance Inspector Relationship Specialty Start Date End Date Annalise Oneill MD [address] [place] [address] [place] [address] PCP - General Family Medicine 11/19/16 08/19/18 Garett Holt MD Internal Medicine-Gastroenterology 12/22/12 Ruiz Stokes MD [address] [place] [address] Internal Medicine-Cardiovascular Disease 07/25/14 documented as of this encounter
--- OUTSIDE RECORDS SUMMARY | 2024-07-22 16:15 | XMS_ITS | Encounter Summary ---
Author Organization [place] [address] Care Team Providers Care Industrial Sales Representative Name Role Phone Garett Holt MD Unavailable [phone] Ruiz Stokes MD Unavailable [phone] Annalise Oneill MD Primary Care Provider [phone] Reason for Visit * Reason Onset Date Comments Surgery 11/25/2016 Visit Follow Up 11/25/2016 Encounter Details Date Type Department Care Team (Late st Contact Info) Description 11/25/2016 Telephone [facility] [address] [facility] [address] [place] [address] Christa Chavez MD [address] [facility] [place] [place], [place] [id number] Surgery; Visit Follow Up Social History Tobacco Use Types [...] encounter Miscellaneous Notes * Telephone Encounter - Chiquita High RMA - 11/25/2016 4:23 PM EDT Surgery Slip Information Dr: PAO Procedure: RIGHT TEMPORAL ARTERY BIOPSY Arrival Date & Time: Friday12/04/16 @ 8:00 AM Notified: 11/25/16 NPO: yes Pretest: [phone] documented in this encounter Plan of Treatment Upcoming Encounters Date Type Department Care Team (Late st Contact Info) Description 07/29/2024 9:00 AM EST Appointment [facility] [address] [place] [address] Jomar Kim MD [address] [place] [address] documented as of this encounter [...] filedocumented in this encounter Care Teams Industrial Sales Representative Relationship Specialty Start Date End Date Annalise Oneill MD [address] [facility] [place] [address] PCP - General Family Medicine 11/19/16 08/19/18 Garett Holt MD Internal Medicine-Gastroenterology 12/22/12 Ruiz Stokes MD [address] [facility] [place] [address] Internal Medicine-Cardiovascular Disease 07/25/14 documented as of this encounter
--- OUTSIDE RECORDS SUMMARY | 2024-07-22 16:15 | XMS_ITS | Encounter Summary ---
Author Organization [place] [address] Care Team Providers Care Network Coordinator Name Role Phone Garett Holt MD Unavailable [phone] Ruiz Stokes MD Unavailable [phone] Annalise Oneill MD Primary Care Provider [phone] Encounter Details Date Type Department Care Team (Latest Contact Info) Description 11/19/2016 8:55 AM EDT - 11/19/2016 11:59 PM EDT [place] [address] Essential hypertension; Hyperlipidemia, unspecified hyperlipidemia type; Arthralgia, unspecified joint; Headache, unspecified headache type; Type 2 diabetes mellitus without complication, unspecified intermediate teacher insulin use status Discharge Disposition: Home or Self Care Social [...] 9:00 AM EST Appointment [facility] [address] [place] [address] Jomar Kim MD [address] [place] [address] Scheduled Orders Name Type Priority Associated Diagnoses Orde r Schedule OP VENIPUNCTURE CHARGE Lab Timed Essential hypertension Hyperlipidemia, unspecified hyperlipidemia type Arthralgia, unspecified joint Headache, unspecified headache type Type 2 diabetes mellitus without complication, unspecified intermediate teacher insulin use status One Time for 1 Occurrences starting 11/19/2016 until 11/19/2016 documented as of this encounter Goals Goal [...] Procedure Name Priority Date/Time Associated Diagnosis Comments LDL, CALCULATED Routine 11/19/2016 8:56 AM EDT LIPID PANEL REFLEX Routine 11/19/2016 8: 56 AM EDT Hyperlipidemia, unspecified hyperlipidemia type TSH REFLEX Routine 11/19/2016 8:56 AM EDT Essential hypertension DIFFERENTIAL Routine 11/19/2016 8:56 AM EDT SEDIMENTATION RATE AUTOMATED Routine 11/19/2016 8:56 AM EDT Arthralgia, unspecified joint Headache, unspecified headache type CBC WITH DIFF Routine 11/19/2016 8:56 AM EDT Essential hypertension Hyperlipidemia, unspecified hyperlipidemia type C-REACTIVE PROTEIN Routine 11/19/2016 8: 56 AM EDT Arthralgia, unspecified joint Headache, unspecified headache type HEMOGLOBIN A1C Routine 11/19/2016 8:56 AM EDT Type 2 diabetes mellitus without complication, unspecified prison insulin use status CREATINE KINASE Routine 11/19/2016 8:56 AM EDT Hyperlipidemia, unspecified hyperlipidemia type Arthralgia, unspecified joint COMPREHENSIVE METABOLIC PANEL Routine 11/19/2016 8:56 AM EDT Essential hypertension documented in this encounter Results * (ABNORMAL) LDL, CALCULATED (11/19/2016 8:56 AM EDT) Pathologist [facility] LDL Calculated 158(H) <=100 mg/dL [facility] Comment: ??< 100 ?Optimal 100 - 129 ? Near or above optimal 130 - 159 ? Borderline High 160 - 189 ? High >= 190 ?Very High Blood specimen (specimen) 11/19/2016 8:56 AM EDT 11/19/2016 2:53 PM EDT us Annalise Oneill MD CHEMISTRY ORDERABLES Final Re sult [facility] [address] [place] [address] * DIFFERENTIAL (11/19/2016 8:56 AM EDT) Neut Percent 70.8 % [facility] Lymph Percent 17.7 % [facility] [place] Percent 8.4 % [facility] Eos Percent 2.5 % [facility] Baso Percent 0.6 % [facility] Neut# 6.6 1.8 - 7.7 x10(3)/[facility] Lymph# 1.6 0.6 - 4.8 x10(3)/[facility] [place]# 0.8 0.0 - 1.3 x10(3)/[facility] Eos# 0.2 0.0 - 0.5 x10(3)/[facility] Baso# 0.1 0.0 - 0.2 x10(3)/[facility] Blood specimen (specimen) 11/19/2016 8:56 AM EDT 11/19/2016 2:53 PM EDT us Annalise Oneill MD HEMATOLOGY ORDERABLES Final R esult Performing Organization Address City/[facility]/[place] [address] * TSH REFLEX (11/19/2016 8:56 AM EDT) TSH Reflex 1.560 0.270 - 4.200 mcIU/mL [facility] Blood specimen (specimen) UPPER LIMB STRUCTURE / Unknown 11/19/2016 8:56 AM EDT 11/19/2016 2:53 PM EDT us Annalise Oneill MD CHEMISTRY ORDERABLES Final Re sult Performing Organization Address City/[facility]/[place] [address] * (ABNORMAL) SEDIMENTATION RATE AUTOMATED (11/19/2016 8:56 AM EDT) Sed Rate 93(H) 0 - 30 mm/hr [facility] Blood specimen (specimen) UPPER LIMB STRUCTURE / Unknown 11/19/2016 8:56 AM EDT 11/19/2016 2:53 PM EDT us Annalise Oneill MD HEMATOLOGY ORDERABLES Final R esult Performing Organization Address [facility] de Phone Number [facility] [address] [place] [address] * (ABNORMAL) LIPID PANEL REFLEX (11/19/2016 8:56 AM EDT) Cholesterol 232(H) <=200 mg/dL [facility] Comment: < 200 ?Desirable 200 - 239 ? Borderline High >= 240 ?High Triglyceride 98 <=150 mg/dL [facility] Comment: < 150 ? Normal 150 - 199 ?Borderline High 200 - 499 ?High ??>= 500 ? Very High HDL 54 >=40 mg/dL [facility] Comment: ?? > 60 ?Optimal 40 - 60 ?Acceptable ?? < 40 ?Low Blood specimen (specimen) UPPER LIMB STRUCTURE / Unknown 11/19/2016 8:56 AM EDT 11/19/2016 2:53 PM EDT us Annalise Oneill MD CHEMISTRY ORDERABLES Final Re sult Performing Organization Address [facility] de Phone Number [facility] [address] [place] [address] * HEMOGLOBIN A1C (11/19/2016 8:56 AM EDT) Hgb A1c 6.3 <=7.0 % [facility] Comment: Reference Interval for Hgb A1c Hgb A1c ?Interpretation ? < 6.0 ?Non-Diabetic Range 6.0 - 7.0 ? ADA Therapeutic Target ??> 7.0 ? Action suggested Blood specimen (specimen) UPPER LIMB STRUCTURE / Unknown 11/19/2016 8:56 AM EDT 11/19/2016 2:53 PM EDT us Annalise Oneill MD CHEMISTRY ORDERABLES Final Re sult Performing Organization Address [facility] [place] [address] * CREATINE KINASE (11/19/2016 8:56 AM EDT) CK 50 26 - 192 IU/L [facility] Blood specimen (specimen) UPPER LIMB STRUCTURE / Unknown 11/19/2016 8:56 AM EDT 11/19/2016 2:53 PM EDT us Annalise Oneill MD CHEMISTRY ORDERABLES Final Re sult Performing Organization Address [facility] [place] [address] * (ABNORMAL) C-REACTIVE PROTEIN (11/19/2016 8:56 AM EDT) CRP 21.93(H) <=5.00 mg/L [facility] Blood specimen (specimen) UPPER LIMB STRUCTURE / Unknown 11/19/2016 8:56 AM EDT 11/19/2016 2:53 PM EDT us Annalise Oneill MD CHEMISTRY ORDERABLES Final Re sult Performing Organization Address [facility] [place] [address] * (ABNORMAL) COMPREHENSIVE METABOLIC PANEL (11/19/2016 8:56 AM EDT) Sodium 140 136 - 145 mmol/L [facility] Potassium 4.6 3.5 - 5.0 mmol/L [facility] Chloride 100 98 - 107 mmol/L [facility] Total CO2 27 22 - 29 mmol/L [facility] Anion Gap 13 7 - 16 mmol/L [facility] Calcium 10.0 8.8 - 10.2 mg/dL [facility] Glucose Lvl 111(H) 82 - 100 mg/dL [facility] BUN 17 8 - 23 mg/dL [facility] Creatinine 0.76 0.51 - 1.30 mg/dL [facility] Albumin 4.1 3.2 - 4.6 gm/dL [facility] Total Protein 7.8 6.4 - 8.3 gm/dL [facility] Bili Total 0.2 0.1 - 1.3 mg/dL [facility] AST 12 <=40 IU/L [facility] ALT 10 <=41 IU/L [facility] Alk Phos 73 35 - 104 IU/L [facility] GFR Afr Am >60 [facility] GFR Non Afr Am >60 [facility] Blood specimen (specimen) UPPER LIMB STRUCTURE / Unknown 11/19/2016 8:56 AM EDT 11/19/2016 2:53 PM EDT us Annalise Oneill MD CHEMISTRY ORDERABLES Edited R esult - Final [facility] [address] [place] [address] * (ABNORMAL) CBC WITH AUTO DIFF (11/19/2016 8:56 AM EDT) WBC 9.3 4.0 - 11.0 x10(3)/mcL [facility] RBC 4.25 3.80 - 5.10 x10(6)/mcL [facility] Hgb 11.5(L) 12.0 - 15.6 gm/dL [facility] Hct 36.4 35.7 - 45.9 % [facility] MCV 85.6 82.5 - 99.8 fL [facility] MCH 27.0 27.0 - 34.3 pg [facility] MCHC 31.6(L) 32.1 - 35.3 gm/dL [facility] RDW 15.1(H) 11.5 - 15.0 % [facility] Platelet 295 144 - 423 x10(3)/mcL [facility] MPV 8.0 6.8 - 10.8 fL [facility] Blood specimen (specimen) UPPER LIMB STRUCTURE / Unknown 11/19/2016 8:56 AM EDT 11/19/2016 2:53 PM EDT us Annalise Oneill MD HEMATOLOGY ORDERABLES Final R esult [facility] [address] [place] [address] documented in this encounter Visit Diagnoses Diagnosis Essential hypertension Unspecified essential hypertension Hyperlipidemia, unspecified hyperlipidemia type Arthralgia, unspecified joint Headache, unspecified headache type Type 2 diabetes mellitus without complication, unspecified prison insulin use status documented in this encounter Care Teams Network Coordinator Relationship Specialty Start Date End Date Annalise Oneill MD [address] [place] [phone] PCP - General Family Medicine 11/19/16 08/19/18 Garett Holt MD Internal Medicine-Gastroenterology 12/22/12 Ruiz Stokes MD [address] [place] [address] Internal Medicine-Cardiovascular Disease 07/25/14 documented as of this encounter
--- OUTSIDE RECORDS SUMMARY | 2024-07-22 16:15 | XMS_ITS | Encounter Summary ---
Author Organization [place] [address] Care Team Providers Care Venetian Blind Assembler Name Role Phone Garett Holt MD Unavailable [phone] Ruiz Stokes MD Unavailable [phone] Cristiane Shirley MD Primary Care Provider Reason for Visit * Reason Comments Medication Refill Encounter Details Date Type Department Care Team (Late st Contact Info) Description 10/23/2016 Refill [facility] [address] [place] [phone] Cristiane Shirley MD [address] [place] [address] Medication Refill Social History Tobacco Use Types [...] CAPSULE BY MOUTH ONCE DAILY 30 Cap 3 10/23/2016 7 lisinopril (PRINIVIL;ZESTRIL) 10 mg Oral TabletIndications: Essential hypertension TAKE 2 TABLETS BY MOUTH ONCE DAILY 60 Tab 3 10/23/2016 7 documented in this encounter Plan of Treatment Upcoming Encounters Date Type Department Care Team (Late st Contact Info) Description 07/29/2024 9:00 AM EST Appointment [facility] [address] [place] [address] Jomar Kim MD [address] [place] [address] documented as of this encounter [...] 2 Tabs by mouth daily. Reorder 06/05/2016 10/23/2016 documented as of this encounter Care Teams Venetian Blind Assembler Relationship Specialty Start Date End Date Cristiane Shirley MD [address] [place], [place] [id number] PCP - General Family Medicine 12/28/14 11/18/16 Garett Holt MD Internal Medicine-Gastroenterology 12/22/12 Ruiz Stokes MD [address] [place] [address] Internal Medicine-Cardiovascular Disease 07/25/14 documented as of this encounter
--- OUTSIDE RECORDS SUMMARY | 2024-07-22 16:15 | XMS_ITS | Encounter Summary ---
Author Organization [place] [address] Care Team Providers Care Interior Design Project Manager Name Role Phone Garett Holt MD Unavailable [phone] Ruiz Stokes MD Unavailable [phone] Annalise Oneill MD Primary Care Provider [phone] Encounter Details Date Type Department Care Team (Late st Contact Info) Description 11/20/2016 Orders Only [facility] [address] [place] [address] Nanda Huitron LPN [address] [place] [address] Hyperlipidemia, unspecified hyperlipidemia type Social History Tobacco Use Types Packs/Day [...] mouth daily. 30 Tab 2 11/20/2016 7 documented in this encounter Plan of Treatment Upcoming Encounters Date Type Department Care Team (Late st Contact Info) Description 07/29/2024 9:00 AM EST Appointment [facility] [address] [place] [address] Jomar Kim MD [address] [place] [address] documented as of this encounter [...] Da te atorvastatin (LIPITOR) 20 mg Oral TabletIndications:Hyperlipi demia, unspecified hyperlipidemia type Take 1 Tab by mouth daily. Reorder 11/20/2016 11/20/2016 documented as of this encounter Care Teams Interior Design Project Manager Relationship Specialty Start Date End Date Annalise Oneill MD [address] [place] [address] PCP - General Family Medicine 11/19/16 08/19/18 Garett Holt MD Internal Medicine-Gastroenterology 12/22/12 Ruiz Stokes MD [address] [place] [address] Internal Medicine-Cardiovascular Disease 07/25/14 documented as of this encounter
--- OUTSIDE RECORDS SUMMARY | 2024-07-22 16:15 | XMS_ITS | Encounter Summary ---
Author Organization [place] [address] Care Team Providers Care Parachute Mender Name Role Phone Garett Holt MD Unavailable [phone] Ruiz Stokes MD Unavailable [phone] Cristiane Shirley MD Primary Care Provider Reason for Visit * Reason Comments Medication Refill Encounter Details Date Type Department Care Team (Late st Contact Info) Description 08/03/2016 Refill [facility] [address] [place] [phone] Cristiane Shirley MD [address] [place] [address] Medication Refill Social History Tobacco Use Types [...] Refills Last Filled Start Date End Date metroNIDAZOLE (FLAGYL) 500 mg Oral Tablet TAKE 1 TAB BY MOUTH 3 TIMES DAILY FOR 10 DAYS. 30 Tab 08/05/2016 11/19/2016 documented in this encounter Plan of Treatment Upcoming Encounters Date Type Department Care Team (Late st Contact Info) Description 07/29/2024 9:00 AM EST Appointment [facility] [address] [facility] [place] [address] Jomar Kim MD [address] [place] [address] documented as of this encounter Visit Diagnoses Not on filedocumented in this encounter Discontinued Medications Medication Sig Discontinue Reason Start Date End Da te metroNIDAZOLE (FLAGYL) 500 mg Oral Tablet Take 1 Tab by mouth 3 times daily for 10 days. Reorder 07/11/2016 08/03/2016 documented as of this encounter Care Teams Parachute Mender Relationship Specialty Start Date End Date Cristiane Shirley MD [address] [place] [address] PCP - General Family Medicine 12/28/14 11/18/16 Garett Holt MD Internal Medicine-Gastroenterology 12/22/12 Ruiz Stokes MD [address] [place] [address] Internal Medicine-Cardiovascular Disease 07/25/14 documented as of this encounter
--- OUTSIDE RECORDS SUMMARY | 2024-07-22 16:15 | XMS_ITS | Encounter Summary ---
Author Organization [place] [address] Care Team Providers Care Sash Installer Name Role Phone Garett Holt MD Unavailable [phone] Ruiz Stokes MD Unavailable [phone] Cristiane Shirley MD Primary Care Provider [phone] Encounter Details Date Type Department Care Team (Late st Contact Info) Description 07/11/2016 Orders Only [facility] [address] [place] [address] Susanna Yousif, AMPHIBIAN CREWMEMBER Helicobacter pylori antibody positive (Primary Dx) Social History Tobacco Use Types [...] Refills Last Filled Start Date End Date tetracycline (ACHROMYCIN;SUMYCIN ) 250 mg Oral CapsuleIndications: Helicobacter pylori antibody positive Take 1 Cap by mouth every 6 hours for 14 days. 56 Cap 07/11/2016 07/25/2016 documented in this encounter Plan of Treatment Upcoming Encounters Date Type Department Care Team (Late st Contact Info) Description 07/29/2024 9:00 AM EST Appointment [facility] [address] [place] [address] Jomar Kim MD [address] [place], [place] [phone] documented as of this encounter Visit Diagnoses Diagnosis Helicobacter pylori antibody positive- Primary Other and unspecified nonspecific immunological findings documented in this encounter Care Teams Sash Installer Relationship Specialty Start Date End Date Cristiane Shirley MD [address] [place], [place] [phone] PCP - General Family Medicine 12/28/14 11/18/16 Garett Holt MD Internal Medicine-Gastroenterology 12/22/12 Ruiz Stokes MD [address] [place] [address] Internal Medicine-Cardiovascular Disease 07/25/14 documented as of this encounter
--- OUTSIDE RECORDS SUMMARY | 2024-07-22 16:15 | XMS_ITS | Encounter Summary ---
Author Organization [place] [address] Care Team Providers Care General Machinist Name Role Phone Garett Holt MD Unavailable [phone] Ruiz Stokes MD Unavailable [phone] Cristiane Shirley MD Primary Care Provider [phone] Reason for Visit * Reason Onset Date Comments Medication Refill 10/23/2016 Encounter Details Date Type Department Care Team (Late st Contact Info) Description 10/23/2016 Refill [facility] [address] [place] [address] Cristiane Shirley MD [address] [place] [address] Medication Refill Social History Tobacco Use Types [...] by mouth daily. with breakfast 90 Tab 10/23/2016 7 documented in this encounter Miscellaneous Notes * Telephone Encounter - Brittanie [place]ador - 10/23/2016 10:58 AM EST Requesting Metformin documented in this encounter Plan of Treatment Upcoming Encounters Date Type Department Care Team (Late st Contact Info) Description 07/29/2024 9:00 AM EST Appointment [facility] [address] [place] [address] Jomar Kim MD [address] [place] [address] documented as of this encounter [...] Tab by mouth daily. with breakfast Reorder 11/15/2015 10/23/2016 documented as of this encounter Care Teams General Machinist Relationship Specialty Start Date End Date Cristiane Shirley MD [address] [place], [place] [phone] PCP - General Family Medicine 12/28/14 11/18/16 Garett Holt MD Internal Medicine-Gastroenterology 12/22/12 Ruiz Stokes MD [address] [place] [address] Internal Medicine-Cardiovascular Disease 07/25/14 documented as of this encounter
--- OUTSIDE RECORDS SUMMARY | 2024-07-22 16:15 | XMS_ITS | Encounter Summary ---
Author Organization [place] [address] Care Team Providers Care Comfort Advisor Name Role Phone Garett Holt MD Unavailable [phone] Ruiz Stokes MD Unavailable [phone] Annalise Oneill MD Primary Care Provider [phone] Reason for Visit * Reason Comments Other Disbursing Officer, ref by Dr. Sheila thao, bx of temporal artery * Consultation (Urgent) - Closed Specialty Diagnoses / Procedures Referred By Contac t Referred To Contact Surgery / General Surgery Diagnoses Right sided temporal headache Elevated sed rate Annalise Oneill MD [address] [place] [phone] Phone: tel: fax: Christa Chavez MD Phone: tel: fax: Referral ID Status Reason Start Date Expiration Date Visits Re quested Visits Authorized [id number] Closed 11/20/2016 11/20/2017 99 99 Encounter Details Date Type Department Care Team (Latest Contact Info) Description 11/21/2016 9:10 AM EDT Office Visit [facility] [address] [address] Christa Chavez MD [address] [facility] [place] [address] Chronic nonintractable headache, unspecified headache type Social History Tobacco Use Types Packs/Day [...] Reading Time Taken Comments Blood Pressure 128/82 11/21/2016 8:57 AM EDT Pulse 68 11/21/2016 8:57 AM EDT Temperature - - Respiratory Rate - - Oxygen Saturation - - Inhaled Oxygen Concentration - - Weight 116.2 kg (256 lb 3.2 oz) 11/21/2016 8:57 AM EDT Height 162.6 cm (5' 4 ) 11/21/2016 8:57 AM EDT Body Mass Index 43.98 11/21/2016 8:57 AM EDT documented in this encounter Progress Notes * Christa Chavez MD - 11/21/2016 9:10 AM EDT Subjective Subjective: Patient ID: Alyssa Jamil is a 61 y.o. female. Chief Complaint Patient presents with ??? Other Disbursing Officer, ref by Dr. Oneill, bx of temporal artery HPI Patients past medical, family and social histories were reviewed and updated. There were no changesexcept as noted. Asked to see this patient in consultation by Dr. Oneill. The patient is a 61-year-old female who has chronic headaches, and [...] cover, Disp: 1 Kit, Rfl: 0 ??? carvedilol (COREG) 6.25 mg Oral Tablet, [...] daily., Disp: 180 Tab, Rfl: 1 ??? metFORMIN (GLUCOPHAGE) 500 mg Oral Tablet, [...] days., Disp: 20 Tab, Rfl: 0 ??? spironolactone (ALDACTONE) 25 mg Oral Tablet, [...] Endometrial hyperplasia ??? History of endometrial cancer Social History Social History ??? Marital status: [...] Does not bruise/bleed easily. Objective Objective: Vitals: 11/21/16 0857 BP: 128/82 Pulse: 68 Weight: 256 lb 3.2 oz (116.2 kg) Height: 5' 4 (1.626 m) Body mass index is 43.98 kg/(m^2). Physical Exam Constitutional: She is oriented to person, place, and time. She appears well- developed and well-nourished. HENT: Head: Normocephalic and atraumatic. Eyes: Conjunctivae are normal. Pupils are equal, round, and reactive to light. Neck: Normal range of motion. Cardiovascular: Normal rate and regular rhythm. Pulmonary/Chest: Effort normal and breath sounds normal. Abdominal: Soft. Bowel sounds are normal. Musculoskeletal: Normal range of motion. Neurological: She is alert and oriented to person, place, and time. Skin: Skin is warm. Assessment and Plan: Impression: Possible arteritis, headaches Plan: Proceed to the operating for a right temporal artery biopsy No Follow-up on file. documented in this encounter Miscellaneous Notes * Patient Instructions - Jo Patricia RMA - 11/21/2016 9:10 AM EDT You may be contacted by [...] 9:00 AM EST Appointment [facility] [address] [place] [address] Jomar Kim MD [address] [place] [address] Scheduled Referrals Name Type Priority [...] 7.0 Result Component 5.6( 3:04 PM EST) Rachel Regan, Leigh documented as of this encounter Visit Diagnoses Diagnosis Chronic nonintractable headache, unspecified headache type documented in this encounter Care Teams Comfort Advisor Relationship Specialty Start Date End Date Annalise Oneill MD [address] [place] [address] PCP - General Family Medicine 11/19/16 08/19/18 Garett Holt MD Internal Medicine-Gastroenterology 12/22/12 Ruiz Stokes MD [address] [place] [address] Internal Medicine-Cardiovascular Disease 07/25/14 documented as of this encounter
--- OUTSIDE RECORDS SUMMARY | 2024-07-22 16:15 | XMS_ITS | Encounter Summary ---
Author Organization [place] [address] Care Team Providers Care Yard Motor Operator Name Role Phone Garett Holt MD Unavailable [phone] Ruiz Stokes MD Unavailable [phone] Cristiane Shirley MD Primary Care Provider [phone] Reason for Visit * Reason Onset Date Comments ED Follow-Up Call 06/19/2016 Encounter Details Date Type Department Care Team (Late st Contact Info) Description 06/19/2016 Patient Outreach [facility] [address] [place] [address] Brynn Morgan RMA ED Follow-Up Call Social History Tobacco Use [...] encounter Miscellaneous Notes * Telephone Encounter - Brynn Haney RMA - 06/19/2016 10:35 AM EDT ED Follow Up Regarding the most recent emergency room visit: Appropriate for follow up?: Yes Contact made?: No If no, did you leave a message?: Yes Was letter sent?: Yes If patient is unable to fill medications, please consider a social work consult if criteria met: documented in this encounter Plan of Treatment Upcoming Encounters Date Type Department Care Team (Late st Contact Info) Description 07/29/2024 9:00 AM EST Appointment [facility] [address] [facility] [address] Jomar Kim MD [address] [place] [address] documented as of this encounter Visit Diagnoses Not on filedocumented in this encounter Care Teams Yard Motor Operator Relationship Specialty Start Date End Date Cristiane Shirley MD [address] [place] [address] PCP - General Family Medicine 12/28/14 11/18/16 Garett Holt MD Internal Medicine-Gastroenterology 12/22/12 Ruiz Stokes MD [address] [place] [address] Internal Medicine-Cardiovascular Disease 07/25/14 documented as of this encounter
--- OUTSIDE RECORDS SUMMARY | 2024-07-22 16:15 | XMS_ITS | Encounter Summary ---
Author Organization [place] [address] Care Team Providers Care Cans Vacuum Tester Name Role Phone Garett Holt MD Unavailable [phone] Ruiz Stokes MD Unavailable [phone] Cristiane Shirley MD Primary Care Provider [phone] Reason for Referral * Consultation (Routine) - Closed Specialty Diagnoses / Procedures Referred By Ron bansal Referred To Contact Diagnoses Chronic pain of left ankle Cristiane Shirley MD Phone: tel: fax: Juan Alberto Malagon MD Phone: tel: fax: Referral ID Status Reason Start Date Expiration Date V isits Requested Visits Authorized [id number] Closed Specialty Services Required 07/09/2016 07/09/2017 1 1 Reason for Visit * Reason Comments Annual Exam Ankle Pain left Dysphagia Abdominal Pain Encounter Details Date Type Department Care Team (Late st Contact Info) Description 07/09/2016 10:15 AM EDT Office Visit [facility] [address] [place] [address] Cristiane Shirley MD [address] [place] [address] Annual physical exam (Primary Dx); Type 2 diabetes mellitus without complication, without long-term current use of insulin (HCC); Gastroesophageal reflux disease with esophagitis; Chronic pain of left ankle; Constipation, chronic; Constipation, unspecified constipation type; Insomnia, persistent; Excoriation of face, initial encounter; H. pylori infection Social History Tobacco Use Types Packs/Day Years [...] Sign Reading Time Taken Comments Blood Pressure 118/84 07/09/2016 8:56 AM EDT Pulse - - Temperature 36.5 ??C (97.7 ??F) 07/09/2016 8:56 AM ED T Respiratory Rate - - Oxygen Saturation - - Inhaled Oxygen Concentration - - Weight 117 kg (258 lb) 07/09/2016 8:56 AM EDT Height 162.6 cm (5' 4 ) 07/09/2016 8:56 AM EDT Body Mass Index 44.29 07/09/2016 8:56 AM EDT documented in this encounter Ordered Prescriptions Prescription Sig Dispense Quantity Refills Last Filled Start Date End Date clarithromycin (BIAXIN) 500 mg Oral TabletIndications :H. pylori infection Take 1 Tab by mouth 2 times daily for 10 days. 20 Tab 07/09/2016 6 amoxicillin (AMOXIL) 500 mg Oral CapsuleIndication s:H. pylori infection Take 2 Caps by mouth 2 times daily for 10 days. 40 Cap 07/09/2016 6 mupirocin (BACTROBAN) 2 % Top OintmentIndicatio ns:Excoriation of face, initial encounter Apply topically 3 times daily for 14 days. 1 Tube 07/09/2016 6 pantoprazole (PROTONIX) 40 mg Oral Tablet, Delayed Release (E.C.)Indications :Gastroesophageal reflux disease with esophagitis Take 1 Tab by mouth daily. 30 Tab 2 07/09/2016 7 nortriptyline (PAMELOR) 25 mg Oral CapsuleIndication s:Insomnia, persistent Take 1 Cap by mouth nightly. 30 Cap 2 07/09/2016 7 polyethylene glycol (GLYCOLAX) 17 gram/dose Oral PowderIndications :Constipation, unspecified constipation type Take 17 g by mouth 2 times daily. For constipation 510 g 2 07/09/2016 7 documented in this encounter Progress Notes * Cristiane Shirley MD - 07/09/2016 10:15 AM EDT Subjective Subjective Ms. Jamil is a 61 y.o. female here for an Annual Medicare Wellness exam. Annual Exam This is a new problem. The current episode started today. The problem occurs daily. The problem hasbeen unchanged. Associated symptoms include abdominal pain, arthralgias, joint swelling and nausea.Pertinent negatives include no chest pain, fever, rash or vomiting. Ankle Pain The pain is present in the left ankle. This is a recurrent problem. The current episode started more than 1 month ago. The problem occurs constantly. The problem has been unchanged. The quality of the pain is described as aching and pounding. The pain is at a severity of 6/10. The pain is moderate.Associated symptoms include joint swelling. Pertinent negatives include no fever. Abdominal Pain This is a recurrent problem. The current episode started more than 1 month ago. The onset quality is gradual. The problem occurs intermittently. The problem is unchanged. Associated symptoms include arthralgias and nausea. Pertinent negatives include no anxiety, constipation, fever, rash or vomiting. Pt is here today for a yearly px, abd pain, left ankle pain and swelling, and trouble swallowing that has been present for several weeks. Pt states that she is having acid reflux bad as well Patient Active Problem List Diagnosis ??? Esophageal [...] Endometrial hyperplasia ??? History of endometrial cancer Past Medical History Diagnosis Date ??? Anemia on iron ??? Arthritis all over ??? Asthma ??? Cancer (HCC) ??? Clotting disorder (HCC) ??? Diabetes mellitus (HCC) 2014 borderline ??? Fibromyalgia ??? Heartburn nausea after eating ??? Hyperlipidemia ??? Hypertension ??? 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 Other and unspecified angina pectoris ??? Shortness of breath ??? Sleep apnea ??? Ulcer (HCC) Past Surgical History Procedure Laterality Date ??? Colonoscopy ??? Upper gastrointestinal endoscopy ??? Upper gastrointestinal endoscopy 02/17/2013 Surgeon: Garett Holt MD; Location: [facility]; Service: ??? Colonoscopy 02/17/2013 Surgeon: Garett Holt MD; Location: [facility]; Service: ??? Cholecystectomy 1989 ??? Cardiac catheterization 04/2015 ??? Dental surgery upper and lower teeth removed Allergies Allergen Reactions ??? Nexium [Esomeprazole Magnesium] Hives and Rash Blisters in Mouth Current Outpatient Prescriptions on File Prior to Visit Medication Sig Dispense Refill ? ? aluminum & magnesium hydroxide-simethicone 200-200-20 mg/5 mL Oral Suspension Take 15 mL bymouth every 6 hours as needed (after meals and at bedtime for the next week). And then PRN for discomfort 354 mL 0 ??? amLODIPine (NORVASC) 10 mg Oral Tablet Take 1 Tab by mouth daily. 30 Tab 1 ??? Aspirin (ASPIRIN) 81 mg Take 1 Tab by mouth daily. 100 Tab 4 ??? Blood-Glucose [facility] Kit Please fill with what her ins will cover 1 Kit 0 ??? carvedilol (COREG) 6.25 mg Oral Tablet TAKE 1 TAB BY MOUTH 2 TIMES DAILY (WITH MEALS). 60 Tab 1 ??? carvedilol (COREG) 6.25 mg Oral Tablet Take 1 Tab by mouth 2 times daily. with meals 60 Tab 6 ??? docusate sodium (DOK) 100 mg Oral Capsule Take 1 Cap by mouth 2 times daily. 60 Cap 1 ??? DULoxetine (CYMBALTA) 30 mg Oral Capsule, Delayed Release(E.C.) Take 1 Cap by mouth daily. 30 Cap 2 ??? ergocalciferol (VITAMIN D) 50,000 unit Oral Capsule Take 1 capsule by mouth once a week. 12 capsule 3 ??? HYDROcodone-acetaminophen (NORCO) 5-325 mg Oral Tablet 1 tab PO every 4-6 hours PRN 15 Tab 0 ??? iron polysaccharides (FERREX 150 FORTE PLUS) 150-60-25-1 wz-ag-ind-mg Oral Capsule Take 1 capsule by mouth daily (with breakfast). 30 capsule 5 ??? lisinopril (PRINIVIL;ZESTRIL) 10 mg Oral Tablet Take 2 Tabs by mouth daily. 60 Tab 1 ??? metFORMIN (GLUCOPHAGE) 500 mg Oral Tablet Take 1 Tab by mouth daily. with breakfast 90 Tab 2 ??? naproxen sodium (ANAPROX) 550 mg Oral Tablet Take 1 Tab by mouth 2 times daily as needed. 60 Tab 2 ??? ondansetron (ZOFRAN ODT) 4 mg disintegrating tablet Take 1 Tab by mouth every 6 hours as neededfor Nausea for up to 10 doses. 10 Tab 0 ??? simvastatin (ZOCOR) 10 mg Oral Tablet Take 1 Tab by mouth every evening. 90 Tab 2 No current facility-administered medications on file prior to visit. Social Social History Social History ??? Marital status: [...] Topics Concern ??? None Social History Narrative Activities of Daily Living: Functional Level: Self-care ADL Limitations: none Family History Problem Relation Age of Onset ??? Heart Disease Father ??? Cataracts Father ??? Diabetes Father ??? Cancer Maternal Grandmother ??? Colon Cancer Maternal Grandmother Immunization History Administered Date(s) Administered ??? Pneumococcal Polysaccharide 23 Valent 11/15/2015 ??? Tdap 01/06/2013 Health Maintenance Topic Date Due ??? Zoster (1) 2016 ??? Hemoglobin A1c 05/17/2016 ??? Microalbuminuria 11/14/2016 ??? Lipids 11/14/2016 ??? Annual Wellness Exam 07/09/2017 ??? Colon Cancer Screening: Occult Blood 07/09/2017 ??? Breast Cancer Screening 11/14/2017 ??? Cervical Cancer Screening 03/27/2018 ??? Colon Cancer Screening: Colonoscopy 02/17/2023 ??? Influenza Vaccine Addressed ??? Pneumococcal Vaccine (Medium Risk) 19-64 Completed Health Maintenance Due Topic Date Due ??? Zoster (1) 2016 ??? Hemoglobin A1c 05/17/2016 Patient Care Team: Cristiane Shirley MD as PCP - General (Family Medicine) Garett Holt MD (Internal Medicine-Gastroenterology) Ruiz Stokes MD (Internal Medicine-Cardiovascular Disease) Functional Ability / Safety Screen: 1. Timed up & go unsteady or longer than 30 secs: no 2. Needs help with phone, transportation, shopping, preparing meals, housework, laundry, medications or managing money: no 3. a. Does home have rugs in the hallway: no b. Lack grab bars in the bathroom: no c. Lacks handrails on stairs: no Depression Screening: In the past two weeks, how often have you felt down, depressed, or hopeless? None Fall Risk Screening: Have you had 2 or more falls in the past year or any fall with injuries within the past year? no Review of Systems Constitutional: Negative for fever. HENT: Negative. Respiratory: Negative. Cardiovascular: Negative for chest pain and leg swelling. Gastrointestinal: Positive for abdominal pain and nausea. Negative for constipation and vomiting. Genitourinary: Negative. Musculoskeletal: Positive for arthralgias, back pain, gait problem and joint swelling. Skin: Negative for rash. Psychiatric/Behavioral: Positive for sleep disturbance. Negative for dysphoric mood. The patient isnot nervous/anxious. Objective Objective Visit Vitals ??? BP 118/84 ??? Temp 97.7 ??F (36.5 ??C) (Tympanic) ??? Ht 5' 4 (1.626 m) ??? Wt 258 lb (117 kg) ??? BMI 44.29 kg/m2 Physical Exam Constitutional: She appears well-developed and well-nourished. HENT: Head: Normocephalic and atraumatic. Right Ear: External ear normal. Left Ear: External ear normal. Right nare tip with excoriation and mild erythema Neck: Neck supple. Cardiovascular: Normal rate, regular rhythm and normal heart sounds. Pulmonary/Chest: Effort normal. She has no wheezes. Abdominal: Soft. There is no tenderness. Musculoskeletal: She exhibits edema and tenderness. Left ankle in brace. Edema and ttp Lymphadenopathy: She has no cervical adenopathy. Skin: Rash noted. No erythema. Psychiatric: She has a normal mood and affect. Nursing note and vitals reviewed. Cognitive Screening: Based on history, self reported concerns, ROS and clinician and/or informant observation no structure assessment is required. Lab Results Component Value Date WBC 9.2 07/09/2016 HGB 11.4 (L) 07/09/2016 HCT 35.0 (L) 07/09/2016 PLT 245 07/09/2016 CHOLESTEROL 169 07/09/2016 TRIG 131 07/09/2016 HDL 52 07/09/2016 LDLCALC 91 07/09/2016 ALT 17 07/09/2016 AST 13 07/09/2016 NA 142 07/09/2016 K 4.8 07/09/2016 CL 102 07/09/2016 CREATININE 0.72 07/09/2016 BUN 15 07/09/2016 CO2 28 07/09/2016 TSH 1.480 07/09/2016 GLUCOSE 98 05/17/2013 GLU 106 (H) 07/09/2016 HGBA1C 5.9 07/09/2016 MICROALBUR 0 07/09/2016 TSHREFLEX 1.530 11/08/2014 Assessment and Plan Alyssa was seen today for annual exam, ankle pain, dysphagia and abdominal pain. Diagnoses and all orders for this visit: Annual physical exam Orders: - Comprehensive Metabolic Panel - Clinic Collect; Future - CBC with Auto Diff - Clinic Collect; Future - Helicobacter pylori Antibody IgG - Clinic Collect; Future - Hemoglobin A1c - Clinic Collect; Future - Iron/UIBC; Future - Lipid Screen - Clinic Collect; Future - Thyroid Stimulating Hormone - Clinic Collect; Future - Venipuncture - Vitamin B12/ Folic Acid - Clinic Collect; Future Type 2 diabetes mellitus without complication, without long-term current use of insulin ([facility]) Orders: - Comprehensive Metabolic Panel - Clinic Collect; Future - CBC with Auto Diff - Clinic Collect; Future - Helicobacter pylori Antibody IgG - Clinic Collect; Future - Hemoglobin A1c - Clinic Collect; Future - Iron/UIBC; Future - Lipid Screen - Clinic Collect; Future - Thyroid Stimulating Hormone - Clinic Collect; Future - Venipuncture - Vitamin B12/ Folic Acid - Clinic Collect; Future - POCT Microalbumin Gastroesophageal reflux disease with esophagitis Orders: - pantoprazole (PROTONIX) 40 mg Oral Tablet, Delayed Release (E.C.); Take 1 Tab by mouth daily. Chronic pain of left ankle Orders: - Orthopedic Surgery, JUAN ALBERTO MALAGON (ALAN) (Foot and Ankle) Constipation, chronic Constipation, unspecified constipation type Orders: - polyethylene glycol (GLYCOLAX) 17 gram/dose Oral Powder; Take 17 g by mouth 2 times daily. For constipation Insomnia, persistent Orders: - nortriptyline (PAMELOR) 25 mg Oral Capsule; Take 1 Cap by mouth nightly. Excoriation of face, initial encounter Orders: - mupirocin (BACTROBAN) 2 % Top Ointment; Apply topically 3 times daily for 14 days. H. pylori infection Orders: - amoxicillin (AMOXIL) 500 mg Oral Capsule; Take 2 Caps by mouth 2 times daily for 10 days. - clarithromycin (BIAXIN) 500 mg Oral Tablet; Take 1 Tab by mouth 2 times daily for 10 days. Recommended: return for routine annual checkups. Advanced directive: No. Information and counseling given Advised to return annually for Medicare Wellness Exam Above problems were discussed with patient and [...] given on the AVS for today's visit. Patient was educated regarding the diagnosis, medication/treatment, goals, self- management tools and instructions based on their care plan. They verbalized full understanding of the education given on the After Visit Summary [AVS] for today's visit. They received a copy of the AVS in writing. A new medicine was not prescribed on this visit. Cristiane Shirley MD documented in this encounter Plan of Treatment Upcoming Encounters Date Type Department Care Team (Late st Contact Info) Description 07/29/2024 9:00 AM EST Appointment [facility] [address] [place] [address] Jomar Kim MD [address] [place], [place] [id number] Scheduled Referrals Name Type Priority Associated Diagnoses Order Schedule AMB REFERRAL TO ORTHOPEDIC SURGERY Outpatient Referral Routine Chronic pain of left ankle Ordered: 07/09/2016 documented as of this encounter Procedures Procedure Name Priority Date/Time Associated Diagnosis Comments POCT MICROALBUMIN Routine 07/09/2016 10: 14 AM EDT Type 2 diabetes mellitus without complication, without long-term current use of insulin (HCC) documented in this encounter Results * VITAMIN B12/ FOLIC ACID (07/09/2016 10:26 AM EDT) Vitamin B12 721 211 - 946 pg/mL [facility] Folic Acid Lvl >20.00 4.50 - 37.30 ng/mL [facility] Blood specimen (specimen) UPPER LIMB STRUCTURE / Unknown 07/09/2016 10:26 AM EDT 07/09/2016 4:43 PM EDT us Cristiane Shirley MD CHEMISTRY ORDERABLES Edited Re sult - Final [facility] [address] [place] [address] * THYROID STIMULATING HORMONE (07/09/2016 10:26 AM EDT) TSH 1.480 0.270 - 4.200 mcIU/mL [facility] Blood specimen (specimen) UPPER LIMB STRUCTURE / Unknown 07/09/2016 10:26 AM EDT 07/09/2016 4:43 PM EDT Cristiane Shirley MD CHEMISTRY ORDERABLES Final Res ult Performing Organization Address [facility] de Phone Number [facility] [address] [place] [address] * LIPID SCREEN (07/09/2016 10:26 AM EDT) Cholesterol 169 <=200 mg/dL [facility] Comment: < 200 ?Desirable 200 - 239 ? Borderline High >= 240 ?High Triglyceride 131 <=150 mg/dL [facility] Comment: < 150 ? Normal 150 - 199 ?Borderline High 200 - 499 ?High ??>= 500 ? Very High HDL 52 >=40 mg/dL [facility] Comment: ?? > 60 ?Optimal 40 - 60 ?Acceptable ?? < 40 ?Low LDL Calculated 91 <=100 mg/dL [facility] Comment: ??< 100 ?Optimal 100 - 129 ? Near or above optimal 130 - 159 ? Borderline High 160 - 189 ? High >= 190 ?Very High Blood specimen (specimen) UPPER LIMB STRUCTURE / Unknown 07/09/2016 10:26 AM EDT 07/09/2016 4:43 PM EDT us Cristiane Shirley MD CHEMISTRY ORDERABLES Edited Re sult - Final Performing Organization Address [facility] Co de Phone Number [facility] [address] [place] [address] * (ABNORMAL) IRON/UIBC (07/09/2016 10:26 AM EDT) Iron 48 30 - 160 mcg/dL [facility] UIBC 227 112 - 347 mcg/dL [facility] Transferrin Saturation 17(L) 20 - 50 % [facility] Blood specimen (specimen) UPPER LIMB STRUCTURE / Unknown 07/09/2016 10:26 AM EDT 07/09/2016 4:43 PM EDT Cristiane Shirley MD CHEMISTRY ORDERABLES Final Res ult Performing Organization Address [facility] de Phone Number [facility] [address] [place] [address] * HEMOGLOBIN A1C (07/09/2016 10:26 AM EDT) Hgb A1c 5.9 <=7.0 % [facility] Comment: Reference Interval for Hgb A1c Hgb A1c ?Interpretation ? < 6.0 ?Non-Diabetic Range 6.0 - 7.0 ? ADA Therapeutic Target ??> 7.0 ? Action suggested Blood specimen (specimen) UPPER LIMB STRUCTURE / Unknown 07/09/2016 10:26 AM EDT 07/09/2016 4:43 PM EDT Cristiane Shirley MD CHEMISTRY ORDERABLES Final Res ult Performing Organization Address [facility] de Phone Number [facility] [address] [place] [address] * (ABNORMAL) HELICOBACTER PYLORI ANTIBODY IGG (07/09/2016 10:26 AM EDT) H pylori IgG Positive( A) [facility] Comment:A positive test mason cates that IgG antibodies specific to H. pylori were detected. A positive test result only indicates the presence of the IgG antibody to H. pylori and does not necessarily indicate that gastrointestinal disease is present. Blood specimen (specimen) UPPER LIMB STRUCTURE / Unknown 07/09/2016 10:26 AM EDT 07/09/2016 4:43 PM EDT Cristiane Shirley MD IMMUNOLOGY ORDERABLES Final Re sult Performing Organization Address [facility] Co de Phone Number [facility] [address] [place] [address] * (ABNORMAL) CBC WITH AUTO DIFF (07/09/2016 10:26 AM EDT) WBC 9.2 4.0 - 11.0 x10(3)/mcL [facility] RBC 4.16 3.80 - 5.10 x10(6)/mcL [facility] Hgb 11.4(L) 12.0 - 15.6 gm/dL [facility] Hct 35.0(L) 35.7 - 45.9 % [facility] MCV 84.0 82.5 - 99.8 fL [facility] MCH 27.4 27.0 - 34.3 pg [facility] MCHC 32.6 32.1 - 35.3 gm/dL [facility] RDW 15.6(H) 11.5 - 15.0 % [facility] Platelet 245 144 - 423 x10(3)/mcL [facility] MPV 8.5 6.8 - 10.8 fL [facility] Blood specimen (specimen) UPPER LIMB STRUCTURE / Unknown 07/09/2016 10:26 AM EDT 07/09/2016 4:43 PM EDT us Cristiane Shirley MD HEMATOLOGY ORDERABLES Final Re sult Performing Organization Address [facility]/ZIP Co de Phone Number [facility] [address] [place] [address] * (ABNORMAL) COMPREHENSIVE METABOLIC PANEL (07/09/2016 10:26 AM EDT) Sodium 142 136 - 145 mmol/L [facility] Potassium 4.8 3.5 - 5.0 mmol/L [facility] Chloride 102 98 - 107 mmol/L [facility] Total CO2 28 22 - 29 mmol/L [facility] Anion Gap 12 7 - 16 mmol/L [facility] Calcium 9.7 8.8 - 10.2 mg/dL [facility] Glucose Lvl 106(H) 82 - 100 mg/dL [facility] BUN 15 8 - 23 mg/dL [facility] Creatinine 0.72 0.51 - 1.30 mg/dL [facility] Albumin 4.0 3.2 - 4.6 gm/dL [facility] Total Protein 7.1 6.4 - 8.3 gm/dL [facility] Bili Total 0.2 0.1 - 1.3 mg/dL [facility] AST 13 <=40 IU/L [facility] ALT 17 <=41 IU/L [facility] Alk Phos 73 35 - 104 IU/L [facility] GFR Afr Am >60 [facility] GFR Non Afr Am >60 [facility] Blood specimen (specimen) UPPER LIMB STRUCTURE / Unknown 07/09/2016 10:26 AM EDT 07/09/2016 4:43 PM EDT us Cristiane Shirley MD CHEMISTRY ORDERABLES Edited Re sult - Final Performing Organization Address [facility] Co de Phone Number [facility] [address] [place] [address] * POCT MICROALBUMIN (07/09/2016 10:14 AM EDT) Microalb, Ur 0 <=20 MG/L [facility] Lot Number SEP OFFICE Expiration Date SEP OFFICE SeriAl # SEP OFFICE Urine specimen (specimen) 07/09/2016 10:14 AM EDT us Cristiane Shirley MD POINT OF CARE TEST ORDERABLES Final Result Performing Organization Address City/[facility]/ZIP Co de Phone Number SEP OFFICE documented in this encounter Visit Diagnoses Diagnosis Annual physical exam- Primary Routine general medical examination at a health care facility Type 2 diabetes mellitus without complication, without long-term current use of insulin (HCC) Gastroesophageal reflux disease with esophagitis Chronic pain of left ankle Constipation, chronic Unspecified constipation Constipation, unspecified constipation type Insomnia, persistent Persistent disorder of initiating or maintaining sleep Excoriation of face, initial encounter H. pylori infection Helicobacter pylori (H. pylori) documented in this encounter Discontinued Medications Medication Sig Discontinue Reason Start Date End Da te omeprazole (PRILOSEC) 20 mg Oral Capsule, Delayed Release(E.C.) Take 1 Cap by mouth daily. Alternate therapy 07/06/2016 07/09/2016 polyethylene glycol (GLYCOLAX) 17 gram/dose Oral PowderIndications:Constip ation Take 17 g by mouth 2 times daily. Reorder 08/02/2014 07/09/2016 documented as of this encounter Orders Charge Count Last Ordered Date First Orde red Date [place] COLLECTION VENOUS BLOOD,VENIPUNCTURE 1 1 09/08/2015 documented in this encounter Care Teams Cans Vacuum Tester Relationship Specialty Start Date End Date Cristiane Shirley MD [address] [place] [address] PCP - General Family Medicine 12/28/14 11/18/16 Garett Holt MD Internal Medicine-Gastroenterology 12/22/12 Ruiz Stokes MD [address] [place] [address] Internal Medicine-Cardiovascular Disease 07/25/14 documented as of this encounter
--- OUTSIDE RECORDS SUMMARY | 2024-07-22 16:15 | XMS_ITS | Encounter Summary ---
Author Organization [place] [address] Care Team Providers Care Metalizer Name Role Phone Garett Holt MD Unavailable [phone] Ruiz Stokes MD Unavailable [phone] Cristiane Shirley MD Primary Care Provider [phone] Reason for Visit * Reason Onset Date Comments Medication Change 07/11/2016 Encounter Details Date Type Department Care Team (Late st Contact Info) Description 07/11/2016 Telephone [facility] [address] [place] [address] Susanna Yousif, [facility] Medication Change Social History Tobacco Use Types [...] Date metroNIDAZOLE (FLAGYL) 500 mg Oral Tablet Take 1 Tab by mouth 3 times daily for 10 days. 30 Tab 07/11/2016 08/03/2016 documented in this encounter Miscellaneous Notes * Telephone Encounter - Cristiane Shirley MD - 07/11/2016 6:06 PM EDT done * Telephone Encounter - Susanna Boswell CMA - 07/11/2016 5:46 PM EDT Patient was prescribed amoxil first but patient said that she is allergic i updated her allergy list, sent in tetracycline per but it is not covered. Please advise. For h pylori documented in this encounter Plan of Treatment Upcoming Encounters Date Type Department Care Team (Late st Contact Info) Description 07/29/2024 9:00 AM EST Appointment [facility] [address] [place], [place] [id number] Jomar Kim MD [address] [place] [address] documented as of this encounter Visit Diagnoses Not on filedocumented in this encounter Discontinued Medications Medication Sig Discontinue Reason Start Date End Da te amoxicillin (AMOXIL) 500 mg Oral CapsuleIndications:H. pylori infection Take 2 Caps by mouth 2 times daily for 10 days. DELETE-Therapy completed 07/09/2016 07/11/2016 documented as of this encounter Care Teams Metalizer Relationship Specialty Start Date End Date Cristiane Shirley MD [address] [place] [address] PCP - General Family Medicine 12/28/14 11/18/16 Garett Holt MD Internal Medicine-Gastroenterology 12/22/12 Ruiz Stokes MD [address] [place] [address] Internal Medicine-Cardiovascular Disease 07/25/14 documented as of this encounter
--- OUTSIDE RECORDS SUMMARY | 2024-07-22 16:15 | XMS_ITS | Encounter Summary ---
Author Organization [place] [address] Care Team Providers Care Shade Matcher Name Role Phone Garett Holt MD Unavailable [phone] Ruiz Stokes MD Unavailable [phone] Cristiane Shirley MD Primary Care Provider [phone] Reason for Visit * Reason Comments Medication Refill Encounter Details Date Type Department Care Team (Late st Contact Info) Description 10/09/[address] [facility] [address] [place] [id number] Cristiane Shirley MD [address] [place] [address] Medication Refill Social History Tobacco Use Types [...] (PROTONIX) 40 mg Oral Tablet, Delayed Release (E.C.)Indications: Gastroesophageal reflux disease with esophagitis TAKE 1 TABLET BY MOUTH ONCE DAILY 30 Tab 2 10/09/2016 7 amLODIPine (NORVASC) 10 mg Oral Tablet TAKE 1 TABLET BY MOUTH ONCE DAILY 30 Tab 2 10/09/2016 7 STOOL SOFTENER 100 mg Oral Capsule TAKE 1 CAPSULE BY MOUTH TWICE DAILY 60 Cap 2 10/09/2016 7 documented in this encounter Plan of Treatment Upcoming Encounters Date Type Department Care Team (Late st Contact Info) Description 07/29/2024 9:00 AM EST Appointment [facility] [address] [place] [address] Jomar Kim MD [address] [place] [address] documented as of this encounter [...] Start Date End Da te docusate sodium (DOK) 100 mg Oral Capsule Take 1 Cap by mouth 2 times daily. Reorder 06/05/2016 10/09/2016 amLODIPine (NORVASC) 10 mg Oral Tablet Take 1 Tab by mouth daily. Reorder 06/05/2016 10/09/2016 pantoprazole (PROTONIX) 40 mg Oral Tablet, Delayed Release (E.C.)Indications:Gastroe sophageal reflux disease with esophagitis Take 1 Tab by mouth daily. Reorder 07/09/2016 10/09/2016 documented as of this encounter Care Teams Shade Matcher Relationship Specialty Start Date End Date Cristiane Shirley MD [address] [place] [address] PCP - General Family Medicine 12/28/14 11/18/16 Garett Holt MD Internal Medicine-Gastroenterology 12/22/12 Ruiz Stokes MD [address] [place] [address] Internal Medicine-Cardiovascular Disease 07/25/14 documented as of this encounter
--- OUTSIDE RECORDS SUMMARY | 2024-07-22 16:15 | XMS_ITS | Encounter Summary ---
Author Organization [place] Address [facility] [place] [address] Care Team Providers Care Elementary [employer] Registrar Name Role Phone Garett Holt MD Unavailable [phone] Ruiz Stokes MD Unavailable [phone] Cristiane Shirley MD Primary Care Provider [phone] Encounter Details Date Type Department Care Team (Latest Contact Info) Description 07/09/2016 4:02 PM EDT - 07/09/2016 11:59 PM EDT Hospital Encounter [facility] ADRIAN PROCESSING [facility] [place] [id number] Annual physical exam; Type 2 diabetes mellitus without complication, without long-term current use of insulin ([facility]) Discharge Disposition: Home or Self Care [...] daily. with meals 60 Tab 6 04/09/2016 7 clarithromycin (BIAXIN) 500 mg Oral TabletIndication s:H. pylori infection Take 1 Tab by mouth 2 times daily for 10 days. 20 Tab 07/09/2016 6 mupirocin (BACTROBAN) 2 % Top OintmentIndicati ons:Excoriation of face, initial encounter Apply topically 3 times daily for 14 days. 1 Tube 07/09/2016 6 documented as of this encounter Discharge Disposition Disposition Code Departure Means Destination Home or Self Care documented in this encounter Plan of Treatment Upcoming Encounters Date Type Department Care Team (Late st Contact Info) Description 07/29/2024 9:00 AM EST Appointment [facility] [address] [place] [address] Jomar Kim MD [address] [place] [address] documented as of this encounter Procedures Procedure Name Priority Date/Time Associated Diagnosis Comments IRON/UIBC Routine 07/09/2016 10:26 AM EDT Annual physical exam Type 2 diabetes mellitus without complication, without long-term current use of insulin (HCC) VITAMIN B12/ FOLIC ACID Routine 07/09/2016 10:26 AM EDT Annual physical exam Type 2 diabetes mellitus without complication, without long-term current use of insulin (HCC) DIFFERENTIAL Routine 07/09/2016 10:26 AM EDT CBC WITH DIFF Routine 07/09/2016 10:26 AM EDT Annual physical exam Type 2 diabetes mellitus without complication, without long-term current use of insulin (HCC) HELICOBACTER PYLORI ANTIBODY IGG Routine 07/09/2016 10:26 AM EDT Annual physical exam Type 2 diabetes mellitus without complication, without long-term current use of insulin (HCC) THYROID STIMULATING HORMONE Routine 07/09/2016 10:26 AM EDT Annual physical exam Type 2 diabetes mellitus without complication, without long-term current use of insulin (HCC) HEMOGLOBIN A1C Routine 07/09/2016 10:26 AM EDT Annual physical exam Type 2 diabetes mellitus without complication, without long-term current use of insulin (HCC) LIPID SCREEN Routine 07/09/2016 10:26 AM EDT Annual physical exam Type 2 diabetes mellitus without complication, without long-term current use of insulin (HCC) COMPREHENSIVE METABOLIC PANEL Routine 07/09/2016 10:26 AM EDT Annual physical exam Type 2 diabetes mellitus without complication, without long-term current use of insulin (HCC) documented in this encounter Results * DIFFERENTIAL (07/09/2016 10:26 AM EDT) Neut Percent 66.1 % [facility] Lymph Percent 20.5 % [facility] [place] Percent 8.9 % [facility] Eos Percent 3.7 % [facility] Baso Percent 0.8 % [facility] Neut# 6.1 1.8 - 7.7 x10(3)/[facility] Lymph# 1.9 0.6 - 4.8 x10(3)/[facility] [place]# 0.8 0.0 - 1.3 x10(3)/[facility] Eos# 0.3 0.0 - 0.5 x10(3)/[facility] Baso# 0.1 0.0 - 0.2 x10(3)/[facility] Blood specimen (specimen) 07/09/2016 10:26 AM EDT 07/09/2016 4:43 PM EDT us Cristiane Shirley MD HEMATOLOGY ORDERABLES Final Re sult [facility] [address] [place] [address] * VITAMIN B12/ FOLIC ACID (07/09/2016 10:26 AM EDT) Vitamin B12 721 211 - 946 pg/mL [facility] Folic Acid Lvl >20.00 4.50 - 37.30 ng/mL [facility] Blood specimen (specimen) UPPER LIMB STRUCTURE / Unknown 07/09/2016 10:26 AM EDT 07/09/2016 4:43 PM EDT Cristiane Shirley MD CHEMISTRY ORDERABLES Edited Re sult - Final Performing Organization Address [facility] de Phone Number [facility] [address] [place] [address] * THYROID STIMULATING HORMONE (07/09/2016 10:26 AM EDT) TSH 1.480 0.270 - 4.200 mcIU/mL [facility] Blood specimen (specimen) UPPER LIMB STRUCTURE / Unknown 07/09/2016 10:26 AM EDT 07/09/2016 4:43 PM EDT Cristiane Shirley MD CHEMISTRY ORDERABLES Final Res ult Performing Organization Address [facility] de Phone Number [facility] [address] [place] [address] * LIPID SCREEN (07/09/2016 10:26 AM EDT) Cholesterol 169 <=200 mg/dL [facility] Comment: < 200 ?Desirable 200 - 239 ? Borderline High >= 240 ?High Triglyceride 131 <=150 mg/dL [facility] Comment: < 150 ? Normal 150 - 199 ?Borderline High 200 - 499 ?High ??>= 500 ? Very High HDL 52 >=40 mg/dL [facility] Comment: ?? > 60 ?Optimal 40 - 60 ?Acceptable ?? < 40 ?Low LDL Calculated 91 <=100 mg/dL [facility] Comment: ??< 100 ?Optimal 100 - 129 ? Near or above optimal 130 - 159 ? Borderline High 160 - 189 ? High >= 190 ?Very High Blood specimen (specimen) UPPER LIMB STRUCTURE / Unknown 07/09/2016 10:26 AM EDT 07/09/2016 4:43 PM EDT Cristiane Shirley MD CHEMISTRY ORDERABLES Edited Re sult - Final Performing Organization Address [facility] [place] [address] * (ABNORMAL) IRON/UIBC (07/09/2016 10:26 AM EDT) Iron 48 30 - 160 mcg/dL [facility] UIBC 227 112 - 347 mcg/dL [facility] Transferrin Saturation 17(L) 20 - 50 % [facility] Blood specimen (specimen) UPPER LIMB STRUCTURE / Unknown 07/09/2016 10:26 AM EDT 07/09/2016 4:43 PM EDT Cristiane Shirley MD CHEMISTRY ORDERABLES Final Res ult Performing Organization Address [facility] de Phone Number [facility] [address] [place] [address] * HEMOGLOBIN A1C (07/09/2016 10:26 AM EDT) Hgb A1c 5.9 <=7.0 % [facility] Comment: Reference Interval for Hgb A1c Hgb A1c ?Interpretation ? < 6.0 ?Non-Diabetic Range 6.0 - 7.0 ? ADA Therapeutic Target ??> 7.0 ? Action suggested Blood specimen (specimen) UPPER LIMB STRUCTURE / Unknown 07/09/2016 10:26 AM EDT 07/09/2016 4:43 PM EDT Cristiane Shirley MD CHEMISTRY ORDERABLES Final Res ult Performing Organization Address [facility] [place] [address] * (ABNORMAL) HELICOBACTER PYLORI ANTIBODY IGG (07/09/2016 10:26 AM EDT) Pathologist [facility] H pylori IgG Positive( A) [facility] Comment:A positive test mason cates that [...] Re sult Performing Organization Address [facility] [place] [address] * (ABNORMAL) COMPREHENSIVE METABOLIC PANEL (07/09/2016 10:26 AM EDT) Sodium 142 136 - 145 mmol/L [facility] Potassium 4.8 3.5 - 5.0 mmol/L [facility] Chloride 102 98 - 107 mmol/L [facility] Total CO2 28 22 - 29 mmol/L [facility] Anion Gap 12 7 - 16 mmol/L [facility] Calcium 9.7 8.8 - 10.2 mg/dL [facility] Glucose Lvl 106(H) 82 - 100 mg/dL [facility] BUN 15 8 - 23 mg/dL [facility] Creatinine 0.72 0.51 - 1.30 mg/dL [facility] Albumin 4.0 3.2 - 4.6 gm/dL [facility] Total Protein 7.1 6.4 - 8.3 gm/dL [facility] Bili Total 0.2 0.1 - 1.3 mg/dL [facility] AST 13 <=40 IU/L [facility] ALT 17 <=41 IU/L [facility] Alk Phos 73 35 - 104 IU/L [facility] GFR Afr Am >60 [facility] GFR Non Afr Am >60 [facility] Blood specimen (specimen) UPPER LIMB STRUCTURE / Unknown 07/09/2016 10:26 AM EDT 07/09/2016 4:43 PM EDT us Cristiane Shirley MD CHEMISTRY ORDERABLES Edited Re sult - Final [facility] [address] [place] [address] * (ABNORMAL) CBC WITH AUTO DIFF (07/09/2016 10:26 AM EDT) WBC 9.2 4.0 - 11.0 x10(3)/mcL [facility] RBC 4.16 3.80 - 5.10 x10(6)/mcL [facility] Hgb 11.4(L) 12.0 - 15.6 gm/dL [facility] Hct 35.0(L) 35.7 - 45.9 % [facility] MCV 84.0 82.5 - 99.8 fL [facility] MCH 27.4 27.0 - 34.3 pg [facility] MCHC 32.6 32.1 - 35.3 gm/dL [facility] RDW 15.6(H) 11.5 - 15.0 % [facility] Platelet 245 144 - 423 x10(3)/mcL [facility] MPV 8.5 6.8 - 10.8 fL [facility] Blood specimen (specimen) UPPER LIMB STRUCTURE / Unknown 07/09/2016 10:26 AM EDT 07/09/2016 4:43 PM EDT us Cristiane Shirley MD HEMATOLOGY ORDERABLES Final Re sult [facility] [address] [place] [address] documented in this encounter Visit Diagnoses Diagnosis Annual physical exam Routine general medical examination at a health care facility Type 2 diabetes mellitus without complication, without long-term current use of insulin (HCC) documented in this encounter Care Teams [employer] Registrar Relationship Specialty Start Date End Date Cristiane Shirley MD [address] [place] [address] PCP - General Family Medicine 12/28/14 11/18/16 Garett Holt MD Internal Medicine-Gastroenterology 12/22/12 Ruiz Stokes MD [address] [place] [address] Internal Medicine-Cardiovascular Disease 07/25/14 documented as of this encounter
--- OUTSIDE RECORDS SUMMARY | 2024-07-22 16:15 | XMS_ITS | Encounter Summary ---
Author Organization [place] [address] Care Team Providers Care Drupal Architect Name Role Phone Gaertt Holt MD Unavailable [phone] Ruiz Stokes MD Unavailable [phone] Cristiane Shirley MD Primary Care Provider Reason for Visit * Reason Onset Date Comments Visit Follow Up 07/19/2016 Encounter Details Date Type Department Care Team (Late st Contact Info) Description 07/19/2016 Telephone [facility] [address] [address] Ruiz Stokes MD [address] [place] [address] Visit Follow Up Social History Tobacco Use [...] encounter Miscellaneous Notes * Telephone Encounter - Lolita Mtz, Clerical Staff - 07/19/2016 4:12 PM EST Called pt and talk to pt and left amessage to call back to make an appointment documented in this encounter Plan of Treatment Upcoming Encounters Date Type Department Care Team (Late st Contact Info) Description 07/29/2024 9:00 AM EST Appointment [facility] [address] [facility] [place] [address] Jomar Kim MD [address] [place] [address] documented as of this encounter Visit Diagnoses Not on filedocumented in this encounter Care Teams Drupal Architect Relationship Specialty Start Date End Date Cristiane Shirley MD [address] [place] [address] PCP - General Family Medicine 12/28/14 11/18/16 Garett Holt MD Internal Medicine-Gastroenterology 12/22/12 Ruiz Stokes MD [address] [place] [address] Internal Medicine-Cardiovascular Disease 07/25/14 documented as of this encounter
--- OUTSIDE RECORDS SUMMARY | 2024-07-22 16:15 | XMS_ITS | Encounter Summary ---
Author Organization [place] [address] Care Team Providers Care Pourer Name Role Phone Garett Holt MD Unavailable [phone] Ruiz Stokes MD Unavailable [phone] Cristiane Shirley MD Primary Care Provider [phone] Reason for Visit * Reason Onset Date Comments Medication Refill 08/05/2016 Encounter Details Date Type Department Care Team (Late st Contact Info) Description 08/05/2016 Refill [facility] [address] [place] [address] Cristiane Shirley MD [address] [place] [id number] Medication Refill Social History Tobacco Use Types [...] Refills Last Filled Start Date End Date famotidine (PEPCID) 20 mg Oral Tablet Take 1 Tab by mouth 2 times daily. 60 Tab 5 08/05/2016 11/19/2016 documented in this encounter Miscellaneous Notes * Telephone Encounter - Treva Juarezn - 08/05/2016 9:42 AM EST Refill Famotidine 20 mg documented in this encounter Plan of Treatment Upcoming Encounters Date Type Department Care Team (Late st Contact Info) Description 07/29/2024 9:00 AM EST Appointment [facility] [address] [place] [address] Jomar Kim MD [address] [place] [address] documented as of this encounter Visit Diagnoses Not on filedocumented in this encounter Care Teams Pourer Relationship Specialty Start Date End Date Cristiane Shirley MD [address] [place] [address] PCP - General Family Medicine 12/28/14 11/18/16 Garett Holt MD Internal Medicine-Gastroenterology 12/22/12 Ruiz Stokes MD [address] [place] [address] Internal Medicine-Cardiovascular Disease 07/25/14 documented as of this encounter
--- OUTSIDE RECORDS SUMMARY | 2024-07-22 16:15 | XMS_ITS | Encounter Summary ---
Author Organization [place] [address] Care Team Providers Care Offset Assistant Press Operator Name Role Phone Garett Holt MD Unavailable [phone] Ruiz Stokes MD Unavailable [phone] Annalise Oneill MD Primary Care Provider Encounter Details Date Type Department Care Team (Late st Contact Info) Description 12/04/2016 Orders Only [facility] [address] [place] [address] Ni Clinton, RN [address] [place] [address] PMR (polymyalgia rheumatica) ([facility]); Right sided temporal headache; Elevated sed rate Social History Tobacco Use Types Packs/Day Years [...] as of this encounter Plan of Treatment Upcoming Encounters Date Type Department Care Team (Late st Contact Info) Description 07/29/2024 9:00 AM EST Appointment [facility] [address] [place] [address] Jomar Kim MD [address] [place] [address] documented as of this [...] Component 5.6( 3:04 PM EST) No Rachel Rogers, RMA documented as of this encounter Visit Diagnoses Diagnosis PMR (polymyalgia rheumatica) (HCC) Polymyalgia rheumatica Right sided temporal headache Headache Elevated sed rate Elevated sedimentation rate documented in this encounter Care Teams Offset Assistant Press Operator Relationship Specialty Start Date End Date Annalsie Oneill MD [address] [place] [address] PCP - General Family Medicine 11/19/16 08/19/18 Garett Holt MD Internal Medicine-Gastroenterology 12/22/12 Ruiz Stokes MD [address] [place] [id number] Internal Medicine-Cardiovascular Disease 07/25/14 documented as of this encounter
--- OUTSIDE RECORDS SUMMARY | 2024-07-22 16:15 | XMS_ITS | Encounter Summary ---
Author Organization [place] [address] Care Team Providers Care Aircraft Restorer Name Role Phone Garett Holt MD Unavailable [phone] Ruiz Sotkes MD Unavailable [phone] Cristiane Shirley MD Primary Care Provider [phone] Reason for Visit * Reason Onset Date Comments Medication Refill 07/06/2016 Encounter Details Date Type Department Care Team (Late st Contact Info) Description 07/06/2016 Refill [facility] [address] [place] [address] Cristiane Shirley MD [address] [place] [id number] Medication Refill Social History Tobacco Use Types [...] Cap by mouth daily. 30 Cap 2 07/06/2016 07/09/2016 documented in this encounter Miscellaneous Notes * Telephone Encounter - Susanna Boswell CMA - 07/06/2016 9:48 AM EDT sent * Telephone Encounter - Treva Juarez - 07/06/2016 8:56 AM EDT Can we please refill omeprazole 20 mg QD (was given by hospital) GCD documented in this encounter Plan of Treatment Upcoming Encounters Date Type Department Care Team (Late st Contact Info) Description 07/29/2024 9:00 AM EST Appointment [facility] [address] [place], [place] [id number] Jomar Kim MD [address] [place] [address] documented as of this encounter Visit Diagnoses Not on filedocumented in this encounter Discontinued Medications Medication Sig Discontinue Reason Start Date End Da te famotidine (PEPCID) 20 mg Oral Tablet Take 1 Tab by mouth 2 times daily. Reorder 06/17/2016 07/06/2016 documented as of this encounter Care Teams Aircraft Restorer Relationship Specialty Start Date End Date Cristiane Shirley MD [address] [place] [address] PCP - General Family Medicine 12/28/14 11/18/16 Garett Holt MD Internal Medicine-Gastroenterology 12/22/12 Ruiz Stokes [facility] [address] [facility] [address] Internal Medicine-Cardiovascular Disease 07/25/14 documented as of this encounter
--- OUTSIDE RECORDS SUMMARY | 2024-07-22 16:16 | XMS_ITS | Encounter Summary ---
Author Organization [place] [address] Care Team Providers Care Smokehouse Operator Name Role Phone Garett Holt MD Unavailable [phone] Ruiz Stokes MD Unavailable [phone] Cristiane Shirley MD Primary Care Provider [phone] Reason for Visit * Reason Comments Cough Congestion Dysuria Encounter Details Date Type Department Care Team (Late st Contact Info) Description 07/18/2015 1:00 PM EST Office Visit [facility] [address] [place] [address] Cristiane Shirley MD [address] [place] [address] Recurrent UTI (urinary tract infection) (Primary Dx); Dysuria; Type 2 diabetes mellitus without complication (HCC) Social History Tobacco Use Types Packs/Day Years Used Date Smoking Tobacco: Former Cigarettes 1.5 12 Smokeless Tobacco: Never Comments:quit [...] Sign Reading Time Taken Comments Blood Pressure 124/86 07/18/2015 1:27 PM EST Pulse - - Temperature 36.1 ??C (96.9 ??F) 07/18/2015 1:27 PM ES T Respiratory Rate - - Oxygen Saturation - - Inhaled Oxygen Concentration - - Weight 122 kg (269 lb) 07/18/2015 1:27 PM EST Height 162.6 cm (5' 4 ) 07/18/2015 1:27 PM EST Body Mass Index 46.17 07/18/2015 1:27 PM EST documented in this encounter Ordered Prescriptions Prescription Sig Dispense Quantity Refills Last Filled Start Date End Date fluconazole (DIFLUCAN) 150 mg Oral TabletIndications:R ecurrent UTI (urinary tract infection) Take 1 Tab by mouth once for 1 dose. 1 Tab 0 07/18/2015 07/18/2015 cephALEXin (KEFLEX) 500 mg Oral CapsuleIndications: Recurrent UTI (urinary tract infection) Take 1 Cap by mouth every 8 hours for 10 days. 30 Cap 0 07/18/2015 07/28/2015 documented in this encounter Progress Notes * Cristiane Shirley MD - 07/18/2015 1:28 PM EST Subjective: Patient ID: Alyssa Jamil is a 60 y.o. female. Chief Complaint Patient presents with ??? Cough ??? Congestion ??? Dysuria HPI: Sinus Pt is here today for a sinus infection. Symptoms consist of drainage, cough, congestion, sore throat and sinus pressure. Has been going on for about a week. Not getting any better. Urinary Tract Infection: Patient complains of dysuria, frequency, urgency She has had symptoms for 3 days. Patient also complains of back pain. Patient denies congestion and cough. Patient does not have a history of recurrent UTI. Patient does not have a history of pyelonephritis. DIABETES Blood sugars were reviewed. No hypoglycemia. Currently on a diabetic diet which helps with sugars. Patients past medical, family and social histories were reviewed and updated. There were no changesexcept as noted. Review of Systems Constitutional: Negative for fever, chills, activity change and fatigue. HENT: Positive for rhinorrhea and sinus pressure. Negative for congestion, ear pain, sneezing and sore throat. Eyes: Negative. Respiratory: Negative for chest tightness, shortness of breath and wheezing. Cardiovascular: Negative. Negative for chest pain and palpitations. Gastrointestinal: Negative for nausea, vomiting, abdominal pain and diarrhea. Genitourinary: Positive for dysuria, urgency and frequency. Musculoskeletal: Negative for back pain, joint swelling and neck pain. Skin: Negative for rash and wound. Neurological: Negative. Psychiatric/Behavioral: Negative for behavioral problems, sleep disturbance and decreased concentration. The patient is not nervous/anxious and is not hyperactive. All other systems reviewed and are negative. Objective: Filed Vitals: 07/18/15 1327 BP: 124/86 Temp: 96.9 ??F (36.1 ??C) TempSrc: Tympanic Height: 5' 4 (1.626 m) Weight: 269 lb (122.018 kg) Body mass index is 46.15 kg/(m^2). Physical Exam Constitutional: She is oriented to person, place, and time. She appears well- developed and well-nourished. No distress. HENT: Head: Normocephalic and atraumatic. Right Ear: External ear normal. Left Ear: External ear normal. Mouth/Throat: Oropharynx is clear and moist. ttp bilateral maxillary sinus. Cobblestoning of oropharynx Eyes: Conjunctivae and EOM are normal. Pupils [...] and affect. Her behavior is normal. Judgment and thought contentnormal. Nursing note and vitals reviewed. Assessment and Plan: Alyssa was seen today for cough, congestion and dysuria. Diagnoses and all orders for this visit: Recurrent UTI (urinary tract infection) Orders: - cephALEXin (KEFLEX) 500 mg Oral Capsule; Take 1 Cap by mouth every 8 hours for 10 days. - fluconazole (DIFLUCAN) 150 mg Oral Tablet; Take 1 Tab by mouth once for 1 dose. Dysuria Orders: - POCT UA Type 2 diabetes mellitus without complication (HCC) Orders: - Comprehensive Metabolic Panel - Clinic Collect; Future - Hemoglobin A1c - Clinic Collect; Future - Lipid Screen - Clinic Collect; Future - Venipuncture - Thyroid Stimulating Hormone - Clinic Collect; Future - POCT Microalbumin Above problems were discussed with patient and [...] any questions and answered them accordingly. patient verb full understanding of the new medication education given at today???s visit. Return if symptoms worsen or fail to improve. documented in this encounter Plan of Treatment Upcoming Encounters Date Type Department Care Team (Late st Contact Info) Description 07/29/2024 9:00 AM EST Appointment [facility] [address] [place] [address] Jomar Kim MD [address] [place] [address] documented as of this encounter Procedures Procedure Name Priority Date/Time Associated Diagnosis Comments POCT MICROALBUMIN Routine 07/18/2015 2:3 8 PM EST Type 2 diabetes mellitus without complication (HCC) POCT URINALYSIS DIPSTICK Routine 07/18/2015 1:38 PM EST Dysuria documented in this encounter Results * POCT MICROALBUMIN (07/18/2015 2:38 PM EST) Microalb, Ur neg <=20 mg/L SEP OFFICE Lot Number SEP OFFICE Expiration Date SEP OFFICE SeriAl # SEP OFFICE Urine specimen (specimen) 07/18/2015 2:38 PM EST us Cristiane Shirley MD POINT OF CARE TEST ORDERABLES Final Result Performing Organization Address [facility] Co de Phone Number SEP OFFICE * THYROID STIMULATING HORMONE (07/18/2015 1:55 PM EST) TSH 1.650 0.270 - 4.200 mcIU/mL [facility] Blood specimen (specimen) UPPER LIMB STRUCTURE / Unknown 07/18/2015 1:55 PM EST 07/18/2015 7:16 PM EST us Cristiane Shirley MD CHEMISTRY ORDERABLES Final Res ult Performing Organization Address [facility] Co de Phone Number [facility] [address] [place] [address] * (ABNORMAL) LIPID SCREEN (07/18/2015 1:55 PM EST) Cholesterol 166 <=200 mg/dL [facility] Comment: < 200 ?Desirable 200 - 239 ? Borderline High >= 240 ?High Triglyceride 198(H) <=150 mg/dL [facility] Comment: < 150 ? Normal 150 - 199 ?Borderline High 200 - 499 ?High ??>= 500 ? Very High HDL 47 >=40 mg/dL [facility] Comment: ?? > 60 ?Optimal 40 - 60 ?Acceptable ?? < 40 ?Low LDL Calculated 79 <=100 mg/dL [facility] Comment: ??< 100 ?Optimal 100 - 129 ? Near or above optimal 130 - 159 ? Borderline High 160 - 189 ? High >= 190 ?Very High Blood specimen (specimen) UPPER LIMB STRUCTURE / Unknown 07/18/2015 1:55 PM EST 07/18/2015 7:16 PM EST Cristiane Shirley MD CHEMISTRY ORDERABLES Edited Re sult - Final Performing Organization Address City/State/[facility] Co de Phone Number [facility] [address] [place] [address] * HEMOGLOBIN A1C (07/18/2015 1:55 PM EST) Hgb A1c 5.4 <=7.0 % [facility] Comment: Reference Interval for Hgb A1c Hgb A1c ?Interpretation ? < 6.0 ?Non-Diabetic Range 6.0 - 7.0 ? ADA Therapeutic Target ??> 7.0 ? Action suggested Blood specimen (specimen) UPPER LIMB STRUCTURE / Unknown 07/18/2015 1:55 PM EST 07/18/2015 7:16 PM EST us Cristiane Shirley MD CHEMISTRY ORDERABLES Final Res ult Performing Organization Address City/[facility]/ZIP Co de Phone Number [facility] [address] [place] [address] * COMPREHENSIVE METABOLIC PANEL (07/18/2015 1:55 PM EST) [facility] Sodium 145 136 - 145 mmol/L [facility] Potassium 4.4 3.5 - 5.0 mmol/L [facility] Chloride 101 98 - 107 mmol/L [facility] Total CO2 29 22 - 29 mmol/L [facility] Anion Gap 15 7 - 16 mmol/L [facility] Calcium 10.0 8.6 - 10.2 mg/dL [facility] Glucose Lvl 93 74 - 100 mg/dL [facility] BUN 10 6 - 20 mg/dL [facility] Creatinine 0.93 0.51 - 1.30 mg/dL [facility] Albumin 4.0 3.5 - 5.2 gm/dL [facility] Total Protein 7.2 6.4 - 8.3 gm/dL [facility] Bili Total 0.2 0.1 - 1.3 mg/dL [facility] AST 14 <=40 IU/L [facility] ALT 28 <=41 IU/L [facility] Alk Phos 70 35 - 104 IU/L [facility] GFR Afr Am >60 [facility] GFR Non Afr Am >60 [facility] Blood specimen (specimen) UPPER LIMB STRUCTURE / Unknown 07/18/2015 1:55 PM EST 07/18/2015 7:16 PM EST us Cristiane Shirley MD CHEMISTRY ORDERABLES Edited Re sult - Final Performing Organization Address [facility]/ZIP Co de Phone Number [facility] [address] [place] [address] * POCT URINALYSIS DIPSTICK (07/18/2015 1:38 PM EST) Color, UA Clear, Yellow, [place], Rust SEP OFFICE Clarity, UA Clear, Cloudy [facility] Glucose, UA - g/dl% SE[facility] OFF[facility] Bilirubin, UA - Pos/Neg [facility] Ketones, UA - Pos/Neg SEP warehouse freight handler Grav, UA 1.025 1.001 - 1.035 g/dl [facility] Blood, UA 250 Pos/Neg [facility] pH, UA 5 5.0 - 8 [facility] Protein, UA 30 Pos/Neg SE[facility] Urobilinogen, UA - 0.2 - 1.0 mg/dL [facility] Leukocytes, UA - Pos/Neg [facility] Nitrite, UA - Pos/Neg SEP OFFICE UA Appear POC SEP OFFICE Lot Number [id number] SEP OFFICE Expiration Date SEP OFFICE SeriAl # SEP OFFICE Urine specimen (specimen) 07/18/2015 1:38 PM EST us Cristiane Shirley MD POINT OF CARE TEST ORDERABLES Final Result SEP OFFICE documented in this encounter Visit Diagnoses Diagnosis Recurrent UTI (urinary tract infection)- Primary Urinary tract infection, site not specified Dysuria Type 2 diabetes mellitus without complication (HCC) documented in this encounter Orders Charge Count Last Ordered Date First Orde red Date [place] COLLECTION VENOUS BLOOD,VENIPUNCTURE 1 1 09/17/2014 documented in this encounter Care Teams Smokehouse Operator Relationship Specialty Start Date End Date Cristiane Shirley MD [address] [place], [place] [id number] PCP - General Family Medicine 12/28/14 11/18/16 Garett Holt MD Internal Medicine-Gastroenterology 12/22/12 Ruiz Stokes MD [address] [place] [address] Internal Medicine-Cardiovascular Disease 07/25/14 documented as of this encounter
--- OUTSIDE RECORDS SUMMARY | 2024-07-22 16:16 | XMS_ITS | Encounter Summary ---
Author Organization [place] [address] Care Team Providers Care Medical Coding Instructor Name Role Phone Garett Holt MD Unavailable [phone] Ruiz tSokes MD Unavailable [phone] Cristiane Shirley MD Primary Care Provider [phone] Reason for Visit * Reason Comments Follow-up [facility]UB per christine Atkinson ad EMB , edema in feet, had u/s 03/13/15, post jenise bleeding fro 1 week Encounter Details Date Type Department Care Team (Late st Contact Info) Description 04/24/2015 11:00 AM EDT Office Visit [facility] [address] [place] [address] Arsalan Palomino MD [address] [place] [address] Endometrial hyperplasia (Primary Dx); PMB (postmenopausal bleeding) Social History Tobacco Use Types Packs/Day Years [...] Sign Reading Time Taken Comments Blood Pressure 124/76 04/24/2015 11:17 AM EDT Pulse - - Temperature - - Respiratory Rate - - Oxygen Saturation - - Inhaled Oxygen Concentration - - Weight 122 kg (269 lb) 04/24/2015 11:17 AM EDT Height 162.6 cm (5' 4 ) 04/24/2015 11:17 AM EDT Body Mass Index 46.17 04/24/2015 11:17 AM EDT documented in this encounter Progress Notes * Arsalan Palomino MD - 04/24/2015 11:25 AM EDT Subjective Subjective: Patient ID: Alyssa Jamil is a 59 y.o. female. Chief Complaint Patient presents with ??? Follow-up AUB per Dr Giron, had EMB , edema in feet, had u/s 03/13/15, post jenise bleeding fro 1 week HPI Ms. Shah is here with history of vaginal bleeding. And pain and is desiring to go with hysterectomyThe bleeding has been going on for the last 10 years. Patient is menopausal. She saw Dr. Giron andhad an endometrial biopsy which shows atypical glandular proliferation but the tissue was scant which need further evaluation. Patient is had 2 normal vaginal deliveries. Patient is also morbidly obese. Patient is also complaining of lower abdominal discomfort and pain pelvic ultrasound showsthickened endometrial lining on the results are as below FINDINGS: The uterus is normal in contour and echogenicity. The uterus measures 7 x 3.6 x 6.1 cm. There is an abnormally thickened endometrial stripe complex measuring 1.3 cm. The right ovary is normal in contour and echogenicity. The right ovary measures 1 x 1.5 x 1.8 cm in size. Left ovary is not visualized. There is no free fluid in the pelvis. IMPRESSION: There is an abnormally thickened endometrial stripe measuring up to 1.3 cm. Differential considerations include endometrial hyperplasia or endometrial neoplasm. An endometrial biopsy should be considered. Patients past medical, family and social histories were reviewed and updated. There were no changesexcept as noted. Review of Systems Constitutional: Negative. HENT: Negative. Eyes: Negative. Respiratory: Negative. Cardiovascular: Negative. Gastrointestinal: Positive for abdominal pain. Genitourinary: Positive for vaginal bleeding. Negative for vaginal discharge, vaginal pain and pelvic pain. Skin: Negative. Objective Objective: Filed Vitals: 04/24/15 1117 BP: 124/76 Height: 5' 4 (1.626 m) Weight: 269 lb (122.018 kg) Body mass index is 46.15 kg/(m^2). Physical Exam Constitutional: She appears well-developed and well-nourished. Neck: Normal range of motion. Neck supple. No thyroid mass and no thyromegaly present. Cardiovascular: Normal rate, regular rhythm and normal heart sounds. Pulmonary/Chest: Breath sounds normal. Abdominal: Soft. Bowel sounds are normal. She exhibits no distension and no mass. There is no tenderness. Genitourinary: Uterus is not enlarged and not tender. Cervix exhibits no discharge. Right adnexum displays no mass, no tenderness and no fullness. Left adnexum displays no mass, no tenderness and no fullness. No tenderness or bleeding in the vagina. No vaginal discharge found. Path Endometrium, biopsy: - Atypical glandular proliferation, scant, see comment. The ultrasound and biopsy results were discussed with patient and her friend and advised that we need to go for D&Cs hysteroscopy first before we proceed with hysterectomy as we need to make surethat she doesn't have any endometrial cancer. The friend wanted us to go with hysterectomy and disagreed with the D&Cs and hysteroscopy . Patient and her friend were informed that we need to go with D and C hysteroscopy and if they are in disagreement than the need to see another physician. Assessment and Plan: Alyssa was seen today for follow-up. Diagnoses and associated orders for this visit: Endometrial hyperplasia PMB (postmenopausal bleeding) Exam & Plan discussed with patient. Scheduled for D & C, Hysteroscopy, possible Polypectomywith Myosure. Procedure/Complications explained in detail, lu Infection, bleeding, & uterine perforation.. Pt verbalized understanding of procedure /complications and is consenting to go ahead with the procedure. Pre & post op instructions given. Return in about 2 weeks (around 05/08/2015). documented in this encounter Plan of Treatment Upcoming Encounters Date Type Department Care Team (Late st Contact Info) Description 07/29/2024 9:00 AM EST Appointment [facility] [address] [place] [address] Jomar Kim MD [address] [place], [place] [id number] documented as of this encounter Visit Diagnoses Diagnosis Endometrial hyperplasia- Primary Endometrial hyperplasia, unspecified PMB (postmenopausal bleeding) Postmenopausal bleeding documented in this encounter Care Teams Medical Coding Instructor Relationship Specialty Start Date End Date Cristiane Shirley MD [address] [place], [place] [id number] PCP - General Family Medicine 12/28/14 11/18/16 Garett Holt MD Internal Medicine-Gastroenterology 12/22/12 Ruiz Stokes MD [address] [place] [address] Internal Medicine-Cardiovascular Disease 07/25/14 documented as of this encounter
--- OUTSIDE RECORDS SUMMARY | 2024-07-22 16:16 | XMS_ITS | Encounter Summary ---
Author Organization [place] [address] Care Team Providers Care Heel Seat Sander Name Role Phone Garett Holt MD Unavailable [phone] Ruiz Stokes MD Unavailable [phone] Cristiane Shirley MD Primary Care Provider [phone] Reason for Visit * Auth/Cert/Inpt Specialty Diagnoses / Procedures Referred By Ron t Referred To Contact Diagnoses Intermediate coronary syndrome (HCC) Intermediate coronary syndrome (HCC) Procedures [facility] (6:00) Referral ID Status Reason Start Date Expiration Date Visits Re quested Visits Authorized [id number] 1 1 Encounter Details Date Type Department Care Team (Latest Contact Info) Description 04/13/2015 5:50 AM EDT - 04/13/2015 11:10 AM EDT Hospital Encounter EDG CARD CATH REC [address] [facility] [place] [address] Ruiz Stokes MD [address] [facility] [address] [place] [address] Intermediate coronary syndrome (HCC) Discharge Disposition: Home or Self Care Social History Tobacco Use Types Packs/Day Years Used Date Smoking Tobacco: Former Cigarettes 1.5 12 Smokeless Tobacco: Never Comments:quit 25 yrs ago Alcohol Use Standard Drinks/Week Comments No 0 (1 standard drink = 0.6 oz pur e alcohol) Sexually Active Control Partners Comments Not Currently Comments No Sex and Gender Information Value [...] Sign Reading Time Taken Comments Blood Pressure 104/58 04/13/2015 9:42 AM EDT Pulse 49 04/13/2015 9:42 AM EDT Temperature 36.2 ??C (97.1 ??F) 04/13/2015 7:22 AM ED T Respiratory Rate 15 04/13/2015 9:42 AM EDT Oxygen Saturation 97% 04/13/2015 9:42 AM EDT Inhaled Oxygen Concentration - - Weight 120.7 kg (266 lb) 04/13/2015 6:13 AM EDT Height 162.6 cm (5' 4 ) 04/13/2015 6:13 AM EDT Body Mass Index 45.66 04/13/2015 6:13 AM EDT documented in this encounter Discharge Instructions * Discharge Instructions* Jennifer Henning RN - 04/13/2015 10:32 AM EDT [facility] Discharge Instructions - Leg Access Best wishes are extended to you on behalf of [facility] as you are discharged. Because we are most concerned with your health, we suggest you carefully read and take an active role in your overall health and follow these instructions. IF YOU ARE DISCHARGED THE DAY OF YOUR PROCEDURE: 1. Return to your usual diet including, low fat, no added salt. 2. Rest quietly today with the leg used for the procedure kept straight. Limit the use of stairs. Do not drive. 3. Leave the bandage in place over the puncture site until next day, when you remove the bandage, shower, and gently cleanse leg with soap and water. A Band- Aid may be placed over the area if desired. AFTER THE FIRST 24 HOURS FOLLOWING THE PROCEDURE: 1. You may climb stairs. 2. You may drive a car. 3. You may shower, wash gently in your groin area. You may NOT take a bath, swim, or use hot tubs for 5 days following your procedure. 4. You may NOT do strenuous exercise for five days, including golf, bowling, tennis, jogging, sexual relations, etc., unless otherwise instructed by your doctor. 5. You may NOT do heavy lifting, object heavier than 10 pounds, for five days, unless otherwise instructed by your doctor. You may return to your normal activities in [address] Stokes. You may return to work in [address] Stokes. Do NOT stop taking ASPIRIN and PLAVIX (CLOPIDOGREL) for any reason without first discussing with your physician, due to the risk of heart attack and . WHAT TO WATCH FOR AFTER GOING HOME: 1. You may have some groin discoloration and a small lump, at the puncture site this will graduallygo away. 2. There will be slight pain at the puncture site when you first begin to walk and move about. 3. You may have numbness at the puncture site; this should go away within 4-6 hours. WHAT TO BE CONCERNED ABOUT: 1. Excessive pain in the area around puncture site, in the thigh or calf. 2. Increase in swelling around puncture site or thigh. 3. Loss of color, extreme coldness or numbness of legs or feet. 4. Sign of infection- fever, chills, redness at puncture site. 5. Bleeding from the puncture site - if this happens, immediately lie flat and apply pressure to the bleeding site with your fingers and have someone call 911 to transport you to your local EmergencyRoom. IF ANY OF THE ABOVE OCCURS, GO IMMEDIATELY TO THE HOSPITAL EMERGENCY ROOM. PAIN ASSESSMENT IF PAIN INTENSIFIES OR PAIN IS UNRELIEVED WITH MEDICATIONS ORDERED, CALL YOUR PHYSICIAN. MEDICATIONS: *Contact your physician before resuming any medication from home not listed in the discharge medication instruction sheet. PRESCRIPTIONS: None FOLLOW-UP TO DOCTOR: Dr Stokes in 2 weeks [phone] ADDITIONAL INSTRUCTIONS: * Smoking is hazardous to your health. Second hand smoke is hazardous to those around you. If you smoke, you can contact your Primary Care Provider for smoking cessation information and classes. * See your physician regularly. * HEART FAILURE: Call your physician if you experience any weight gain of 4 lbs in 2 days, chest discomfort, swelling of feet/ankles, frequent dry hacking cough especially when lying down, dizziness,fainting, passing out, difficulty breathing, leg cramping, decrease in activity tolerance, problemsrelated to current illness/procedure or if symptoms persist or worsen. * Stay active, lower your stress level and monitor your blood pressure. I HAVE RECEIVED AND UNDERSTAND THE ABOVE INSTRUCTIONS. Please bring this paper with you when you return to your physician. documented in this encounter Discharge Disposition Disposition Code Departure Means Destination Home or Self Care Wheelchair Home documented in this encounter Progress Notes * Jennifer Henning RN - 04/13/2015 10:45 AM EDT Pt eating and taking PO fluids. Discharge instructions given pt verbalized understanding. documented in this encounter H&P Notes * Ruiz Stokes MD - 04/13/2015 8:00 AM EDT PHYSICIAN IMMEDIATE PRE-PROCEDURE UPDATE H&P and SEDATION ASSESSMENT Risks, benefits, potential complications and alternatives have been discussed with patient and/or patient's legal authorized desk representative. HISTORY AND PHYSICAL H&P is less than 30 days old and reviewed. The patient was examined and NO change has occurred in the patient's condition since the H&P was completed. SEDATION ASSESSMENT The patient's immediate pre-procedure physical assessment indicates the patient is a suitable candidate for and agrees to the planned sedation: Moderate sedation Patient has been NPO for a sufficient period of time to allow for gastric emptying. Comment: Patient has no previous adverse experience to anesthesia. Comment: Patient's cardiovascular function and vital signs are within patient's defined baseline. Comment: Patient's airway has been assessed and consideration has been given as to how it might alter the patient's response to sedation. Comment: Source Note - Ruiz Stokes MD - 03/31/2015 10:53 AM EDT Cardiology Progress Note Patient Name: Alyssa Jamil : 1955 Subjective Chief Complaint Patient presents with ??? Chest Pain Last day or two the CP has subsided. Dr. Shirley wanted patient to follow up. HPI 59 yo with persistent CP Sx off and on worsening over last month Sx radiate to Left axilla Worse with physical acclivity like carrying laundry Feels very tight in her chest and goes to left shoulder Chest tightness resolves with Rest Nonsmoker DM2, HTN, Dyslipidemia No hx of LHC BP controlled Recent ER visit for Abd pain Neg stress test January 2015 Obese and sedentary No Hx of CAD On asa and statin BP and lipids excellent ROS Denies: fever, chills, nausea, vomiting, dizziness, headaches, diarrhea Past Medical History Diagnosis Date ??? Shortness of breath ??? Asthma ??? Other and unspecified angina pectoris (HCC) ??? Heartburn nausea after eating ??? Ulcer (HCC) ??? Arthritis all over ??? 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 Diabetes mellitus (HCC) borderline ??? Anemia on iron Current Outpatient Rx Name Route Sig Dispense Refill ??? metFORMIN (GLUCOPHAGE) 500 mg Oral Tablet Oral Take 1 Tab by mouth daily (with breakfast). 90 Tab 1 ??? simvastatin (ZOCOR) 10 mg Oral Tablet Oral Take 1 Tab by mouth every evening. Patient taking differently: Take 20 mg by mouth every evening. 90 Tab 3 refill request ??? lisinopril (PRINIVIL;ZESTRIL) 10 mg Oral Tablet Oral Take 2 Tabs by mouth daily. 60 Tab 5 ??? amLODIPine (NORVASC) 10 mg Oral Tablet Oral Take 1 Tab by mouth daily. 30 Tab 3 ??? DULoxetine (CYMBALTA) 30 mg Oral Capsule, Delayed Release(E.C.) Oral Take 1 Cap by mouth daily. 30 Cap 2 ??? naproxen sodium (ANAPROX) 550 mg Oral Tablet Oral Take 1 Tab by mouth 2 times daily as needed. 60 Tab 2 ??? fUROsemide (LASIX) 40 mg Oral Tablet Oral Take 1 Tab by mouth daily. 90 Tab 1 ??? potassium chloride SA (K-DUR;KLOR-CON) 20 mEq Oral Tab Sust.Rel. Particle/Crystal Oral Take 1 Tab by mouth daily. 90 Tab 1 ??? omeprazole (PRILOSEC) 20 mg Oral Capsule, Delayed Release(E.C.) Oral Take 1 Cap by mouth 2 times daily (before meals). 180 Tab 1 ??? polyethylene glycol (GLYCOLAX) 17 gram/dose Oral Powder Oral Take 17 g by mouth 2 times daily. 510 g 2 ??? ergocalciferol (VITAMIN D) 50,000 unit Oral Capsule Oral Take 1 capsule by mouth once a week. 12 capsule 3 ??? iron polysaccharides (FERREX 150 FORTE PLUS) 150-60-25-1 bi-ce-xnk-mg Oral Capsule Oral Take 1 capsule by mouth daily (with breakfast). 30 capsule 5 ??? acetaminophen (TYLENOL) 500 mg Oral Tablet Oral Take 2 tablets by mouth every 6 hours as needed for Pain. 120 tablet 2 ??? ondansetron (ZOFRAN ODT) 4 mg disintegrating tablet Oral Take 1 Tab by mouth every 6 hours as needed for Nausea for up to 10 doses. 10 Tab 0 ??? Aspirin (ASPIRIN) 81 mg Oral Take 1 Tab by mouth daily. 100 Tab 4 History Social History ??? Marital Status: Spouse Name: N/A Number of Children: 2 ??? Years of Education: N/A Occupational History ??? disabled Social History Main Topics ??? Smoking status: Former Smoker ??? Smokeless tobacco: Never Used ??? Alcohol Use: No ??? Drug Use: No ??? Sexual Activity: Not Currently Other Topics Concern ??? Not on file Social History Narrative Past Surgical History Procedure Laterality Date ??? Cholecystectomy ??? Colonoscopy ??? Upper gastrointestinal endoscopy ??? Upper gastrointestinal endoscopy 02/17/2013 Surgeon: Garett Holt MD; Location: [facility]; Service: ??? Colonoscopy 02/17/2013 Surgeon: Garett Holt MD; Location: [facility]; Service: Allergies Allergen Reactions ??? No Known Allergies Family History Problem Relation Age of Onset ??? Heart Disease Father ??? Cataracts Father ??? Diabetes Father ??? Cancer Maternal Grandmother ??? Colon Cancer Maternal Grandmother Objective Filed Vitals: 03/31/15 1024 BP: 126/88 Pulse: 64 Exam: GENERAL APPEARANCE: In no acute distress HEENT: Normocephalic, Atraumatic NECK: No JVD - No Bruit RESPIRATORY: Normal breath sounds bilateral HEART: Normal S1 S2- No S3, S4 No Murmur, rub or gallop VASCULAR: Normal pulses, equal, bilateral ABDOMEN: Soft, nontender, no organomegaly, no distension NEUROLOGIC: Alert, oriented X 3- Grossly intact, nonfocal SKIN: No rash EXTREMITIES: No edema- No cynosis No results found for this visit on 03/31/15. Labs Lab Results Component Value Date CHOLESTEROL 164 11/08/2014 CHOLESTEROL 198 01/02/2014 CHOLESTEROL 202* 05/17/2013 HDL 58 11/08/2014 HDL 49 01/02/2014 HDL 56 05/17/2013 LDLCALC 89 11/08/2014 LDLCALC 125* 01/02/2014 TRIG 86 11/08/2014 TRIG 120 01/02/2014 TRIG 75 05/17/2013 No results found for: INR, PROTIME Lab Results Component Value Date WBC 9.6 09/13/2014 WBC 10.9 04/02/2014 WBC 11.3* 01/01/2014 HGB 12.1 09/13/2014 HGB 12.0 04/02/2014 HGB 11.7* 01/01/2014 HCT 37.1 09/13/2014 HCT 36.3 04/02/2014 HCT 35.4* 01/01/2014 MCV 87.1 09/13/2014 MCV 85.3 04/02/2014 MCV 83.9 01/01/2014 PLT 249 09/13/2014 PLT 243 04/02/2014 PLT 241 01/01/2014 Lab Results Component Value Date HGBA1C 6.1 11/08/2014 HGBA1C 6.1 07/23/2014 HGBA1C 6.2 05/31/2014 Lab Results Component Value Date NA 140 11/08/2014 NA 143 09/13/2014 NA 142 07/23/2014 K 4.0 11/08/2014 K 3.9 09/13/2014 K 4.2 07/23/2014 BUN 17 11/08/2014 BUN 11 09/13/2014 BUN 7 07/23/2014 CALCIUM 9.9 11/08/2014 CALCIUM 9.8 09/13/2014 CALCIUM 10.0 07/23/2014 CL 102 11/08/2014 CL 100 09/13/2014 CL 102 07/23/2014 CO2 30* 11/08/2014 CO2 25 05/17/2013 CO2 28 06/22/2012 CREATININE 0.65 11/08/2014 CREATININE 0.69 09/13/2014 CREATININE 0.72 07/23/2014 GLU 108* 11/08/2014 GLU 95 09/13/2014 GLU 107* 07/23/2014 Lab Results Component Value Date ALT 20 11/08/2014 ALT 21 05/31/2014 ALT 16 04/02/2014 AST 15 11/08/2014 AST 16 05/31/2014 AST 20 04/02/2014 ALKPHOS 74 11/08/2014 ALKPHOS 79 05/31/2014 ALKPHOS 78 04/02/2014 BILITOT 0.2 06/22/2012 Assessment Patient Active Problem List Diagnosis Date Noted ??? Endometrial hyperplasia 03/15/2015 ??? Endometrial hyperplasia 03/14/2015 Endometrial biopsy done 03/27/2015. ??? DDD (degenerative disc disease), lumbosacral 12/28/2014 ??? HAMIDA (obstructive sleep apnea) 12/28/2014 ??? Diabetes mellitus (HCC) 12/28/2014 ??? Hiatal hernia 08/09/2014 ??? Ventral hernia 2014 ??? Chest pain 01/01/2014 Class: Acute ??? Acute coronary syndrome (HCC) 01/01/2014 Class: Acute ??? Chest discomfort 03/15/2013 ??? Leg pain, right 03/12/2013 ??? SOB (shortness of breath) 03/12/2013 ??? Systolic murmur 03/12/2013 ??? Dysphagia 02/17/2013 ??? Encounter for screening colonoscopy 02/17/2013 ??? Esophageal reflux ??? Osteoarthrosis, unspecified whether generalized or localized, unspecified site Impression 59 yo with persistent CP Sx off and on worsening over last month Sx radiate to Left axilla Worse with physical acclivity like carrying laundry Feels very tight in her chest and goes to left shoulder Chest tightness resolves with Rest Nonsmoker DM2, HTN, Dyslipidemia No hx of [facility] BP controlled Recent ER visit for Abd pain Neg stress test January 2015 Obese and sedentary No Hx of CAD On asa and statin BP and lipids excellent Plan Accelerating typical CP Sx suggestive on unstable angina Recent neg imaging study Plan [facility] soon Discussed need for coronary angiography with patient. Answered all questions and discussed risks, benefits and alternatives to angiography and pt agrees to proceed in the near future. Procedure will be scheduled as soon as possible. Thank you for allowing me to participate in the care of your patients. Please call with any concerns or questions Ruiz Stokes MD [facility] documented in this encounter Procedure Notes * Ruiz Stokes MD - 04/13/2015 8:46 AM EDT [facility] CARDIAC PROCEDURE NOTE Alyssa Jamil April 13, 2015 PROCEDURE(S): LHC, Select Coronary Angio, LVG FINDINGS: LM: Normal LAD: Normal CX; Normal RCA: Dom PDA, normal EF 60% EDP 15 PLAN: Med Mgmt CONDITION POST PROCEDURE: Stable ESTIMATED BLOOD LOSS: Less than 10cc COMPLICATIONS None Ruiz Stokes MD Date: 04/13/2015 documented in this encounter Plan of Treatment Upcoming Encounters Date Type Department Care Team (Late st Contact Info) Description 07/29/2024 9:00 AM EST Appointment [facility] [address] [place] [address] Jomar Kim MD [address] [place] [address] documented as of this encounter Procedures Procedure Name Priority Date/Time Associated Diagnosis Comments SCANNED RHYTHM STRIPS 04/13/2015 12:40 PM EDT LEFT VENTRICULOGRAM Routine 04/13/2015 8 :58 AM EDT Intermediate coronary syndrome (HCC) CARDIAC PROCEDURE Routine 04/13/2015 8:5 8 AM EDT Intermediate coronary syndrome (HCC) WELT INSOLE CHANNEL[employer] HEMODYNAMIC WAVEFORMS Routine 04/13/2015 8:28 AM EDT documented in this encounter Results * SCANNED RHYTHM STRIPS (04/13/2015 12:40 PM EDT) Anatomical Region Laterality Modality Other 04/13/2015 12:4 0 PM EDT us Unknown Unknown IMG ECG ORDERABLES Final Result * CORONARY ANGIOGRAM (COR/LHC/LV GRAM, CARDIAC CATHETERIZATION), LEFT VENTRICULOGRAM (04/13/2015 8:58AM EDT) Narrative [facility] - 04/13/2015 8:58 AM EDT [facility] CARDIAC PROCEDURE NOTE Alyssa Jamil April 13, 2015 PROCEDURE(S): LHC, Select Coronary Angio, LVG FINDINGS: LM: Normal LAD: Normal CX; Normal RCA: Dom PDA, normal EF 60% EDP 15 PLAN: Med Mgmt CONDITION POST PROCEDURE: Stable ESTIMATED BLOOD LOSS: Less than 10cc COMPLICATIONS None Ruiz Stokes MD Date: 04/13/2015 Coronary Findings Diagnostic Dominance: Right Left Main: [facility] CARDIAC PROCEDURE NOTE Alyssa Jamil April 13, 2015 PROCEDURE(S): LHC, Select Coronary Angio, LVG FINDINGS: LM: Normal LAD: Normal CX; Normal RCA: Dom PDA, normal EF 60 EDP 15 PLAN: Med Mgmt CONDITION POST PROCEDURE: Stable ESTIMATED BLOOD LOSS: Less than 10cc COMPLICATIONS None Ruiz Stokes MD Date: 04/13/2015 Intervention No interventions have been documented. Complication There were no immediate complications Estimated blood loss = blood loss <50 mL Wall Motion The following segments are normal: basal anterior, basal inferior, mid anterior, mid inferior, apical anterior and apical inferior. Other segments could not be evaluated. us Ruiz Stokes MD CARDIAC CATH ORDERABLES Fi nal Result [facility] * WELT INSO[employer] CHANNELER HEMODYNAMIC WAVEFORMS (04/13/2015 8:28 AM EDT) 04/13/2015 8:28 AM EDT us Ruiz Stokes MD CARDIAC CATH ORDERABLES Fi nal Result [facility] [address] [place] [address] documented in this encounter Visit Diagnoses Diagnosis Intermediate coronary syndrome (HCC) Intermediate coronary syndrome Intermediate coronary syndrome (HCC) Intermediate coronary syndrome documented in this encounter Administered Medications Inactive Administered Medications - up to 1 most recent administrations Medication Order MAR Action Action Date Dose Rate Site 0.9 % NaCl infusion Intravenous, at 150 mL/hr, CONTINUOUS, Starting on 04/12/15 at 1000, Until Cyn 8 at 0914, Start 2 hours prior to procedure at 150 mL/hr. If Sodium Bicarbonate drip to infuse, 0.9% Normal Saline to infuse at Keep Open Rate., Pre-op (Floor Meds) New Bag 04/13/2015 7:10 AM EDT 1,000 mL 150 mL/hr documented in this encounter Active and Recently Administered Medications Times are shown in EDT. Continuous Medication Order 04/11/2015 04/12/2015 04/13/2015 0.9 % NaCl infusion (CANCELED) Intravenous, at 150 mL/hr, CONTINUOUS, Starting on 04/12/15 at 1000, Until Cyn 8 at 0914, Start 2 hours prior to procedure at 150 mL/hr. If Sodium Bicarbonate drip to infuse, 0.9% Normal Saline to infuse at Keep Open Rate., Pre-op (Floor Meds) 0710 (New Bag - Prov ider: Jennifer Henning RN)1030 (Stopped - Provider: Jennifer Henning RN) PRN Medication Order 04/11/2015 04/12/2015 04/13/2015 fentaNYL (SUBLIMAZE) 50 mcg/mL injection (CANCELED) PRN, Starting on Cyn 8 at 0828, Until Cyn 8 at 0855, Intra-procedure(Cath) 0828 (Given - Provid er: Ana Larkin RN)0843 (Given - Provider: Ana Larkin RN) iopamidol (ISOVUE-370) 76 % injection (LOW) (CANCELED) PRN, Starting on Cyn 815 at 0846, Until Cyn 815 at 0855, Intra-procedure(Cath) 0846 (Given - Provid er: Ruiz Stokes MD - Comment: wasted 50 mL) midazolam (VERSED) injection (CANCELED) PRN, Starting on Cyn 8//15 at 0828, Until Cyn 8 at 0855, Intra-procedure(Cath) 0828 (Given - Provid er: Ana Larkin RN) documented in this encounter Orders Medications Ordered That Edwin ht Not Have Been Administered Count Last Ordered Date First Ordered Date 0.9 % NaCl infusion 1 04/13/2015 atropine injection 0.5 mg 1 04/13/2015 dextrose 50 % (D50W) solution 25 g 1 2014 EPINEPHrine injection 1 mg 1 04/13/2015 fentaNYL (SUBLIMAZE) 50 mcg/mL injection 1 04/13/2015 iopamidol (ISOVUE-370) 76 % injection (LOW) 1 04/13/2015 midazolam (VERSED) injection 1 04/13/2015 sodium chloride 0.9% syringe 2 04/13/2015 Nursing Count Last Ordered Date First Orde red Date BEDREST 1 04/13/2015 LAB INSTRUCTIONS 1 04/13/2015 MISCELLANEOUS NURSING CARE ORDER (SPECIFY) 1 04/13/2015 NOTIFY PHYSICIAN (SPECIFY) 4 04/13/2015 NURSING COMMUNICATION 5 04/13/2015 PERFORM ACT 1 04/13/2015 POSITIONING INSTRUCTION 1 04/13/2015 REMOVE DRESSING 1 04/13/2015 VERIFY INFORMED CONSENT CARD CATH 1 015 VITAL SIGNS 2 04/13/2015 Discharge Count Last Ordered Date First Orde red Date DISCHARGE PATIENT 1 04/13/2015 documented in this encounter Care Teams Heel Seat Sander Relationship Specialty Start Date End Date Cristiane Shirley MD [address] [place] [address] PCP - General Family Medicine 12/28/14 11/18/16 Garett Holt MD Internal Medicine-Gastroenterology 12/22/12 Ruiz Stokes MD [address] [facility] [place] [address] Internal Medicine-Cardiovascular Disease 07/25/14 documented as of this encounter
--- OUTSIDE RECORDS SUMMARY | 2024-07-22 16:16 | XMS_ITS | Encounter Summary ---
Author Organization [place] [address] Care Team Providers Care Stoker Installation Mechanic Name Role Phone Garett Holt MD Unavailable [phone] Ruiz Stokes MD Unavailable [phone] Cristiane Shirley MD Primary Care Provider [phone] Reason for Visit * Reason Comments Pre-op Exam Encounter Details Date Type Department Care Team (Late st Contact Info) Description 08/23/2015 1:15 PM EST Office Visit [facility] [address] [place] [address] Cristiane Shirley MD [address] [place] [id number] Preop cardiovascular exam (Primary Dx); Endometrial hyperplasia; Type 2 diabetes mellitus without complication (HCC) [...] Reading Time Taken Comments Blood Pressure 126/84 08/23/2015 1:25 PM EST Pulse - - Temperature 36.8 ??C (98.2 ??F) 08/23/2015 1:25 PM ES T Respiratory Rate - - Oxygen Saturation - - Inhaled Oxygen Concentration - - Weight 122.9 kg (271 lb) 08/23/2015 1:25 PM EST Height 162.6 cm (5' 4 ) 08/23/2015 1:25 PM EST Body Mass Index 46.52 08/23/2015 1:25 PM EST documented in this encounter Progress Notes * Cristiane Shirley MD - 08/23/2015 1:22 PM EST Subjective Subjective: Patient ID: Alyssa Jamil is a 60 y.o. female. Chief Complaint Patient presents with ??? Pre-op Exam Pre-op Exam This is a new problem. The current episode started today. The problem occurs daily. The problem hasbeen unchanged. Associated symptoms include chills and weakness. Pertinent negatives include no abdominal pain, chest pain, congestion, diaphoresis, fatigue, fever, joint swelling, nausea, neck pain,rash, sore throat or vomiting. Pt is here today for a pre op exam. Pt is having a hysterectomy on August 28. Pt is unsure of which doctor will be doing the surgery. Was seeing dr david recently for this. Pt will be traveling to [place] on Aug 27 for lab work. Pt does not have her pre-op paperwork with her today. Patients past medical, family and social histories were reviewed and updated. There were no changesexcept as noted. Review of Systems Constitutional: Positive for chills. Negative for fever, diaphoresis, activity change and fatigue. HENT: Negative for congestion, ear pain, rhinorrhea, sinus pressure, sneezing and sore throat. Eyes: Negative. Respiratory: Negative for chest tightness, shortness of breath and wheezing. Cardiovascular: Positive for leg swelling (swelling in ankles). Negative for chest pain and palpitations. Gastrointestinal: Negative for nausea, vomiting, abdominal pain and diarrhea. Musculoskeletal: Negative for back pain, joint swelling and neck pain. Skin: Negative for pallor, rash and wound. Neurological: Positive for dizziness and weakness. Psychiatric/Behavioral: Negative for behavioral problems, sleep disturbance and decreased concentration. The patient is not nervous/anxious and is not hyperactive. All other systems reviewed and are negative. Objective Objective: Filed Vitals: 08/23/15 1325 BP: 126/84 Temp: 98.2 ??F (36.8 ??C) TempSrc: Tympanic Height: 5' 4 (1.626 m) Weight: 271 lb (122.925 kg) Body mass index is 46.49 kg/(m^2). Physical Exam Constitutional: She is oriented to person, place, and time. She appears well- developed and well-nourished. No distress. HENT: Head: Normocephalic and atraumatic. Right Ear: Hearing, tympanic membrane, external ear and ear canal normal. Left Ear: Hearing, tympanic membrane, external ear and ear canal normal. Nose: Nose normal. Mouth/Throat: Uvula is midline, oropharynx is clear and moist and mucous membranes are normal. Eyes: Conjunctivae and EOM are normal. Pupils are equal, round, and reactive to light. Right eye exhibits no discharge. Left eye exhibits no discharge. Neck: Normal range of motion. Neck supple. Cardiovascular: Normal rate and regular rhythm. Murmur (Grade 1-2 soft blowing systolic murmur) heard. No edema noted to bilateral lower legs Pulmonary/Chest: Effort normal and breath sounds normal. [...] and Plan: Alyssa was seen today for pre-op exam. Diagnoses and all orders for this visit: Preop cardiovascular exam Orders: - POCT EKG Endometrial hyperplasia Type 2 diabetes mellitus without complication (HCC) Other orders - Cancel: CBC with Auto Diff - Clinic Collect; Future - Cancel: Comprehensive Metabolic Panel - Clinic Collect; Future - Cancel: PT/INR - Clinic Collect; Future - Cancel: Venipuncture cleared for surgery. Forms faxed to surgeon. Monitor. Past Medical History Diagnosis Date ??? Shortness of breath ??? Asthma ??? Other and unspecified angina pectoris ??? Heartburn nausea after eating ??? Ulcer ??? Arthritis all over ??? 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 Anemia on iron ??? Sleep apnea ??? Hyperlipidemia ??? Hypertension ??? Diabetes mellitus (HCC) 2013 borderline ??? Clotting disorder (HCC) Past Surgical History Procedure Laterality Date ??? Colonoscopy ??? Upper gastrointestinal endoscopy ??? Upper gastrointestinal endoscopy 02/17/2013 Surgeon: Garett Holt MD; Location: [facility]; Service: ??? Colonoscopy 02/17/2013 Surgeon: Garett Holt MD; Location: [facility]; Service: ??? Cholecystectomy 1989 ??? Cardiac catheterization 04/2015 ??? Dental surgery upper and lower teeth removed Current Outpatient Rx Name Route Sig Dispense Refill ??? carvedilol (COREG) 6.25 mg Oral Tablet Oral Take 1 Tab by mouth 2 times daily (with meals). 60 Tab 6 ??? docusate sodium (COLACE) 100 mg Oral Capsule Oral Take 1 Cap by mouth 2 times daily for 30 days. 60 Cap 0 ??? ergocalciferol (VITAMIN D) 50,000 unit Oral Capsule Oral Take 1 capsule by mouth once a week. 12 capsule 3 ??? iron polysaccharides (FERREX 150 FORTE PLUS) 150-60-25-1 ks-xp-knn-mg Oral Capsule Oral Take 1 capsule by mouth daily (with breakfast). 30 capsule 5 ??? lisinopril (PRINIVIL;ZESTRIL) 10 mg Oral Tablet Oral Take 2 Tabs by mouth daily. 60 Tab 5 ??? metFORMIN (GLUCOPHAGE) 500 mg Oral Tablet Oral Take 1 Tab by mouth daily (with breakfast). 90 Tab 1 ??? naproxen sodium (ANAPROX) 550 mg Oral Tablet Oral Take 1 Tab by mouth 2 times daily as needed. 60 Tab 2 ??? omeprazole (PRILOSEC) 20 mg Oral Capsule, Delayed Release(E.C.) Oral Take 1 Cap by mouth 2 times daily (before meals). 180 Tab 1 ??? ondansetron (ZOFRAN ODT) 4 mg disintegrating tablet Oral Take 1 Tab by mouth every 6 hours as needed for Nausea for up to 10 doses. 10 Tab 0 ??? polyethylene glycol (GLYCOLAX) 17 gram/dose Oral Powder Oral Take 17 g by mouth 2 times daily. 510 g 2 ??? simvastatin (ZOCOR) 10 mg Oral Tablet Oral Take 1 Tab by mouth every evening. Patient taking differently: Take 20 mg by mouth every evening. 90 Tab 3 refill request ??? Aspirin (ASPIRIN) 81 mg Oral Take 1 Tab by mouth daily. 100 Tab 4 Allergies Allergen Reactions ??? Nexium [Esomeprazole Magnesium] Hives and Rash Blisters in Mouth ??? No Known Allergies History Social History ??? Marital Status: Spouse Name: N/A Number of Children: 2 ??? Years of Education: N/A Occupational History ??? disabled Social History Main Topics ??? Smoking status: Former Smoker -- 1.50 packs/day for 12 years Types: Cigarettes ??? Smokeless tobacco: Never Used Comment: quit 25 yrs ago ??? Alcohol Use: No ??? Drug Use: No ??? Sexual Activity: Partners: Male Control/ Protection: Post-menopausal Other Topics Concern ??? Not on file Social History Narrative Family History Problem Relation Age of Onset ??? Heart Disease Father ??? Cataracts Father ??? Diabetes Father ??? Cancer Maternal Grandmother ??? Colon Cancer Maternal Grandmother Anesthesia History - Patients has had prior surgery which required general anesthesia. She did not have a prior reaction to anesthesia. No Follow-up on file. documented in this encounter Plan of Treatment Upcoming Encounters Date Type Department Care Team (Late st Contact Info) Description 07/29/2024 9:00 AM EST Appointment [facility] [address] [place] [address] Jomar Kim MD [address] [place] [address] documented as of this encounter Procedures Procedure Name Priority Date/Time Associated Diagnosis Comments POCT EKG Routine 08/23/2015 1:58 PM EST Preop cardiovascular exam documented in this encounter Results * POCT EKG (08/23/2015 1:58 PM EST) 08/23/2015 1:58 PM EST us Cristiane Shirley MD POINT OF CARE CARDIOLOGY Final Result [facility] documented in this encounter Visit Diagnoses Diagnosis Preop cardiovascular exam- Primary Pre-operative cardiovascular examination Endometrial hyperplasia Endometrial hyperplasia, unspecified Type 2 diabetes mellitus without complication (HCC) documented in this encounter Discontinued Medications Medication Sig Discontinue Reason Start Date End Da te acetaminophen (TYLENOL) 500 mg Oral TabletIndications:Osteo arthrosis, unspecified whether generalized or localized, unspecified site Take 2 tablets by mouth every 6 hours as needed for Pain. DELETE-Therapy completed 05/31/2014 08/23/2015 DULoxetine (CYMBALTA) 30 mg Oral Capsule, Delayed Release(E.C.)Indication s:DDD (degenerative disc disease), lumbosacral,Fibromyalgi a Take 1 Cap by mouth daily. DELETE-Therapy completed 12/28/2014 08/23/2015 documented as of this encounter Care Teams Stoker Installation Mechanic Relationship Specialty Start Date End Date Cristiane Shirley MD [address] [place] [address] PCP - General Family Medicine 12/28/14 11/18/16 Garett Holt MD Internal Medicine-Gastroenterology 12/22/12 Ruiz Stokes MD [address] [place], [place] [id number] Internal Medicine-Cardiovascular Disease 07/25/14 documented as of this encounter
--- OUTSIDE RECORDS SUMMARY | 2024-07-22 16:16 | XMS_ITS | Encounter Summary ---
Author Organization [place] Address [facility] [place] [address] Care Team Providers Care Maintenance Worker Name Role Phone Garett Holt MD Unavailable [phone] Ruiz Stokes MD Unavailable [phone] Cristiane Shirley MD Primary Care Provider [phone] Encounter Details Date Type Department Care Team (Latest Contact Info) Description 11/15/2015 7:27 PM EST - 11/15/2015 11:59 PM EST Hospital Encounter [facility] [place] [id number] Type 2 diabetes mellitus without complication (HCC) Discharge Disposition: Home or Self Care [...] this encounter Medications at Time of Discharge ciprofloxacin HCl (CIPRO) 500 mg Oral TabletIndications :Vaginal pain Take 1 Tab by mouth 2 times daily for 10 days. 20 Tab 0 11/15/2015 11/25/2015 documented as of this encounter Discharge Disposition Disposition Code Departure Means Destination Home or Self Care documented in this encounter Plan of Treatment Upcoming Encounters Date Type Department Care Team (Late st Contact Info) Description 07/29/2024 9:00 AM EST Appointment [facility] [address] [place], [place] [id number] Jomar Kim MD [address] [place], [place] [id number] documented as of this encounter Procedures Procedure Name Priority Date/Time Associated Diagnosis Comments THYROID STIMULATING HORMONE Routine 11/15/2015 11:40 AM EST Type 2 diabetes mellitus without complication (HCC) HEMOGLOBIN A1C Routine 11/15/2015 11:40 AM EST Type 2 diabetes mellitus without complication (HCC) LIPID SCREEN Routine 11/15/2015 11:40 AM EST Type 2 diabetes mellitus without complication (HCC) COMPREHENSIVE METABOLIC PANEL Routine 11/15/2015 11:40 AM EST Type 2 diabetes mellitus without complication (HCC) documented in this encounter Results * THYROID STIMULATING HORMONE (11/15/2015 11:40 AM EST) TSH 1.610 0.270 - 4.200 mcIU/mL [facility] Blood specimen (specimen) UPPER LIMB STRUCTURE / Unknown 11/15/2015 11:40 AM EST 11/15/2015 7:45 PM EST us Cristiane Shirley MD CHEMISTRY ORDERABLES Final Res ult [facility] [address] [place] [address] * LIPID SCREEN (11/15/2015 11:40 AM EST) Cholesterol 175 <=200 mg/dL [facility] Comment: < 200 ?Desirable 200 - 239 ? Borderline High >= 240 ?High Triglyceride 134 <=150 mg/dL [facility] Comment: < 150 ? Normal 150 - 199 ?Borderline High 200 - 499 ?High ??>= 500 ? Very High HDL 57 >=40 mg/dL [facility] Comment: ?? > 60 ?Optimal 40 - 60 ?Acceptable ?? < 40 ?Low LDL Calculated 91 <=100 mg/dL [facility] Comment: ??< 100 ?Optimal 100 - 129 ? Near or above optimal 130 - 159 ? Borderline High 160 - 189 ? High >= 190 ?Very High Blood specimen (specimen) UPPER LIMB STRUCTURE / Unknown 11/15/2015 11:40 AM EST 11/15/2015 7:45 PM EST us Cristiane Shirley MD CHEMISTRY ORDERABLES Edited Re sult - Final [facility] [address] [place] [address] * HEMOGLOBIN A1C (11/15/2015 11:40 AM EST) Hgb A1c 5.6 <=7.0 % [facility] Comment: Reference Interval for Hgb A1c Hgb A1c ?Interpretation ? < 6.0 ?Non-Diabetic Range 6.0 - 7.0 ? ADA Therapeutic Target ??> 7.0 ? Action suggested Blood specimen (specimen) UPPER LIMB STRUCTURE / Unknown 11/15/2015 11:40 AM EST 11/15/2015 7:45 PM EST Cristiane Shirley MD CHEMISTRY ORDERABLES Final Res ult [facility] [address] [place] [address] * COMPREHENSIVE METABOLIC PANEL (11/15/2015 11:40 AM EST) Sodium 142 136 - 145 mmol/L [facility] Potassium 4.6 3.5 - 5.0 mmol/L [facility] Chloride 101 98 - 107 mmol/L [facility] Total CO2 29 22 - 29 mmol/L [facility] Anion Gap 12 7 - 16 mmol/L [facility] Calcium 9.9 8.6 - 10.2 mg/dL [facility] Glucose Lvl 95 74 - 100 mg/dL [facility] BUN 13 6 - 20 mg/dL [facility] Creatinine 0.68 0.51 - 1.30 mg/dL [facility] Albumin 4.3 3.5 - 5.2 gm/dL [facility] Total Protein 7.2 6.4 - 8.3 gm/dL [facility] Bili Total 0.3 0.1 - 1.3 mg/dL [facility] AST 18 <=40 IU/L [facility] ALT 21 <=41 IU/L [facility] Alk Phos 69 35 - 104 IU/L [facility] GFR Afr Am >60 [facility] GFR Non Afr Am >60 [facility] Blood specimen (specimen) UPPER LIMB STRUCTURE / Unknown 11/15/2015 11:40 AM EST 11/15/2015 7:45 PM EST Cristiane Shirley MD CHEMISTRY ORDERABLES Edited Re helio - Final [facility] [address] [place] [address] documented in this encounter Visit Diagnoses Diagnosis Type 2 diabetes mellitus without complication (HCC) documented in this encounter Care Teams Maintenance Worker Relationship Specialty Start Date End Date Cristiane Shirley MD [address] [place] [address] PCP - General Family Medicine 12/28/14 11/18/16 Garett Holt MD Internal Medicine-Gastroenterology 12/22/12 Ruiz Stokes MD [address] [place] [id number] Internal Medicine-Cardiovascular Disease 07/25/14 documented as of this encounter
--- OUTSIDE RECORDS SUMMARY | 2024-07-22 16:16 | XMS_ITS | Encounter Summary ---
Author Organization [place] [address] Care Team Providers Care Assistant Pressman Name Role Phone Garett Holt MD Unavailable [phone] Ruiz Stokes MD Unavailable [phone] Cristiane Shirley MD Primary Care Provider [phone] Reason for Referral * Consultation (Routine) - Closed Specialty Diagnoses / Procedures Referred By Ron bansal Referred To Contact Gynecology Diagnoses Endometrial hyperplasia Cristiane Shirley MD Phone: tel: fax: Poornima Liz MD Phone: tel: fax: Referral ID Status Reason Start Date Expiration Date Visits Re quested Visits Authorized [id number] Closed 04/25/2015 04/24/2016 1 1 Comments Poornima Liz. Couldn't find her in system but her number is [phone] Reason for Visit * Reason Onset Date Comments Other 04/24/2015 Encounter Details Date Type Department Care Team (Late st Contact Info) Description 04/24/2015 Telephone [facility] [address] [place] [address] Anahi Redd MA [address] [facility] [address] [place] [address] Other Social History Tobacco Use Types [...] encounter Miscellaneous Notes * Telephone Encounter - Rachel Rogers RMA - 04/25/2015 6:06 PM EDT Left message with Anita to return phone call. Couldn't fine Poornima Liz in computer to put in thereferral/external section but her number is [phone]. Can you help me? * Telephone Encounter - Cristiane Shirley MD - 04/25/2015 5:58 PM EDT Please see if she would like to be referred to dr liz * Telephone Encounter - Cristiane Shirley MD - 04/25/2015 12:28 AM EDT . 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 You referred her to DR Palomino for female issues... They did not really like her a whole lot... She wanted to do just a D and C on her and Alyssa would like top have a hysterectomy... Is there someone else you can send her to for a second opinion? documented in this encounter Plan of Treatment Upcoming Encounters Date Type Department Care Team (Late st Contact Info) Description 07/29/2024 9:00 AM EST Appointment [facility] [address] [place] [address] Jomar Kim MD [address] [place] [address] Scheduled Referrals Name Type Priority Associated Diagnoses Orde r Schedule AMB REFERRAL TO OB-TRANSFER AGENT Outpatient Referral Routine Endometrial hyperplasia Ordered: 04/25/2015 documented as of this encounter Visit Diagnoses Diagnosis Endometrial hyperplasia- Primary Endometrial hyperplasia, unspecified documented in this encounter Care Teams Assistant Pressman Relationship Specialty Start Date End Date Cristiane Shirley MD [address] [place] [address] PCP - General Family Medicine 12/28/14 11/18/16 Garett Holt MD Internal Medicine-Gastroenterology 12/22/12 Ruiz Stokes MD [address] [place] [address] Internal Medicine-Cardiovascular Disease 07/25/14 documented as of this encounter
--- OUTSIDE RECORDS SUMMARY | 2024-07-22 16:16 | XMS_ITS | Encounter Summary ---
Author Organization [place] [address] Care Team Providers Care Filtering Machine Tender Name Role Phone Garett Holt MD Unavailable [phone] Ruiz Stokes MD Unavailable [phone] Cristiane Shirley MD Primary Care Provider [phone] Reason for Visit * Reason Comments Follow-up Encounter Details Date Type Department Care Team (Late st Contact Info) Description 12/20/2015 9:50 AM EDT [facility] Visit [facility] [address] [place] [address] Gianni Giron MD [address] [place] [address] Encounter to discuss test results (Primary Dx); Follow-up exam Social History Tobacco Use Types Packs/Day Years [...] Pressure - - Pulse - - Temperature - - Respiratory Rate - - Oxygen Saturation - - Inhaled Oxygen Concentration - - Weight 116.6 kg (257 lb) 12/20/2015 10:14 AM EDT Height 162.6 cm (5' 4 ) 12/20/2015 10:14 AM EDT Body Mass Index 44.11 12/20/2015 10:14 AM EDT documented in this encounter Progress Notes * Gianni Giron MD - 12/20/2015 5:27 PM EDT [facility] Subjective: Alyssa Jamil is a(n)60 y.o. female who comes to the office today for follow up of labial biopsy. Path report returned as epidermal cyst. No atypia. Ms. Jamil says her biopsy site is feeling much better today. No c/o pain or drainage. ROS were all negative except those mentioned in the HPI Objective: There were no vitals filed for this visit. PE: Biopsy site clean and dry. No erythema, induration, or drainage. Assessment: Benign labial biopsy. Site healing well to date. Plan: continue usual hygeine. No further follow up planned. Return as needed. Obtain op report from hysterectomy as Ms. Jamil unsure of details of operation. documented in this encounter Plan of Treatment Upcoming Encounters Date Type Department Care Team (Late st Contact Info) Description 07/29/2024 9:00 AM EST Appointment [facility] [address] [place] [address] Jomar Kim MD [address] [place] [address] documented as of this encounter Visit Diagnoses Diagnosis Encounter to discuss test results- Primary Other specified counseling Follow-up exam Unspecified follow-up examination documented in this encounter Care Teams Filtering Machine Tender Relationship Specialty Start Date End Date Cristiane Shirley MD [address] [place] [address] PCP - General Family Medicine 12/28/14 11/18/16 Garett Holt MD Internal Medicine-Gastroenterology 12/22/12 Ruiz Stokes MD [address] [place] [address] Internal Medicine-Cardiovascular Disease 07/25/14 documented as of this encounter
--- OUTSIDE RECORDS SUMMARY | 2024-07-22 16:16 | XMS_ITS | Encounter Summary ---
Author Organization [place] [address] Care Team Providers Care Storekeeper Steward Name Role Phone Garett Holt MD Unavailable [phone] Ruiz Stokes MD Unavailable [phone] Cristiane Shirley MD Primary Care Provider [phone] Reason for Visit * Reason Onset Date Comments Results 12/18/2015 bx Visit Follow Up 12/18/2015 Encounter Details Date Type Department Care Team (Late st Contact Info) Description 12/18/2015 Telephone [facility] [address] [place] [address] Gianni Giron MD [address] [place] [phone] Results (bx); Visit Follow Up Social History Tobacco Use [...] encounter Miscellaneous Notes * Telephone Encounter - Kriss Arshad RMA - 12/18/2015 1:37 PM EDT Pt aware. * Telephone Encounter - Kriss Arshad RMA - 12/18/2015 1:35 PM EDT ----- Message from Gianni Giron MD sent at 12/18/2015 1:31 PM EDT ----- Please let Ms. Jamil know that biopsy is negative for atypical cells. Follow up in office this week as scheduled. documented in this encounter Plan of Treatment Upcoming Encounters Date Type Department Care Team (Late st Contact Info) Description 07/29/2024 9:00 AM EST Appointment [facility] [address] [place], [place] [id number] Jomar Kim MD [address] [place], [place] [id number] documented as of this encounter Visit Diagnoses Not on filedocumented in this encounter Care Teams Storekeeper Steward Relationship Specialty Start Date End Date Cristiane Shirley MD [address] [place], [place] [phone] PCP - General Family Medicine 12/28/14 11/18/16 Garett Holt MD Internal Medicine-Gastroenterology 12/22/12 Ruiz Stokes MD [address] [place], [place] [phone] Internal Medicine-Cardiovascular Disease 07/25/14 documented as of this encounter
--- OUTSIDE RECORDS SUMMARY | 2024-07-22 16:16 | XMS_ITS | Encounter Summary ---
Author Organization [place] [address] Care Team Providers Care Head Of Academic Technology Name Role Phone Garett Holt MD Unavailable [phone] Ruiz Stokes MD Unavailable [phone] Cristiane Shirley MD Primary Care Provider [phone] Reason for Visit * Reason Onset Date Comments Orders 05/23/2015 Encounter Details Date Type Department Care Team (Late st Contact Info) Description 05/23/2015 Telephone [facility] [address] [place] [address] Cristiane Shirley MD [address] [place] [address] Orders Social History Tobacco Use [...] Refills Last Filled Start Date End Date CPAP/BIPAP and Equipment MISCELLANEOU 1 Device by MISCELLANEOUS route once for 1 dose. Use as directed. 1 Device 0 05/23/2015 05/23/20 15 documented in this encounter Miscellaneous Notes * Telephone Encounter - Treva Juarezn - 05/23/2015 2:49 PM EDT Can we please order CPap machine and supplies to [facility] documented in this encounter Plan of Treatment Upcoming Encounters Date Type Department Care Team (Late st Contact Info) Description 07/29/2024 9:00 AM EST Appointment [facility] [address] [facility] [place] [address] Jomar Kim MD [address] [place] [address] documented as of this encounter Visit Diagnoses Not on filedocumented in this encounter Care Teams Head Of Academic Technology Relationship Specialty Start Date End Date Cristiane Shirley MD [address] [place], [place] [phone] PCP - General Family Medicine 12/28/14 11/18/16 Garett Holt MD Internal Medicine-Gastroenterology 12/22/12 Ruiz Stokes MD [address] [place], [place] [phone] Internal Medicine-Cardiovascular Disease 07/25/14 documented as of this encounter
--- OUTSIDE RECORDS SUMMARY | 2024-07-22 16:16 | XMS_ITS | Encounter Summary ---
Author Organization [place] [address] Care Team Providers Care Maintenance Of Way Clerk Name Role Phone Garett Holt MD Unavailable [phone] Ruiz Stokes MD Unavailable [phone] Cristiane Shirley MD Primary Care Provider Reason for Visit * Reason Comments Medication Refill Encounter Details Date Type Department Care Team (Late st Contact Info) Description 05/11/2016 Refill [facility] [address] [place] [phone] Cristiane Shirley MD [address] [place] [address] Medication Refill Social History Tobacco Use Types [...] End Date amLODIPine (NORVASC) 10 mg Oral Tablet TAKE 1 TAB BY MOUTH DAILY. 30 Tab 1 05/14/2016 06/05/2016 carvedilol (COREG) 6.25 mg Oral Tablet TAKE 1 TAB BY MOUTH 2 TIMES DAILY (WITH MEALS). 60 Tab 1 05/14/2016 11/19/2016 documented in this encounter Plan of Treatment Upcoming Encounters Date Type Department Care Team (Late st Contact Info) Description 07/29/2024 9:00 AM EST Appointment [facility] [address] [place], [place] [id number] Jomar Kim MD [address] [place] [address] documented as of this encounter Visit Diagnoses Not on filedocumented in this encounter Discontinued Medications Medication Sig Discontinue Reason Start Date End Da te carvedilol (COREG) 6.25 mg Oral TabletIndications:Essentia l hypertension Take 1 Tab by mouth 2 times daily (with meals). Reorder 11/15/2015 05/11/2016 amLODIPine (NORVASC) 10 mg Oral Tablet Take 1 Tab by mouth daily. Reorder 11/15/2015 05/11/2016 documented as of this encounter Care Teams Maintenance Of Way Clerk Relationship Specialty Start Date End Date Cristiane Shirley MD [address] [place] [address] PCP - General Family Medicine 12/28/14 11/18/16 Garett Holt MD Internal Medicine-Gastroenterology 12/22/12 Ruiz Stokes MD [address] [place], [place] [id number] Internal Medicine-Cardiovascular Disease 07/25/14 documented as of this encounter
--- OUTSIDE RECORDS SUMMARY | 2024-07-22 16:16 | XMS_ITS | Encounter Summary ---
Author Organization [place] [address] Care Team Providers Care Mold Car Pusher Name Role Phone Garett Holt MD Unavailable [phone] Ruiz Stokes MD Unavailable [phone] Cristiane Shirley MD Primary Care Provider Reason for Visit * Reason Comments Medication Refill Carvedilol Encounter Details Date Type Department Care Team (Late st Contact Info) Description 04/05/2016 Refill [facility] [address] [address] Ruiz Stokes MD [address] [place] [address] Medication Refill (Carvedilol ) Social History Tobacco Use Types Packs/Day [...] Refills Last Filled Start Date End Date carvedilol (COREG) 6.25 mg Oral Tablet Take 1 Tab by mouth 2 times daily. with meals 60 Tab 6 04/09/2016 03/14/2017 documented in this encounter Miscellaneous Notes * Telephone Encounter - Beatriz Ring RMA - 04/09/2016 1:46 PM EDT Done documented in this encounter Plan of Treatment Upcoming Encounters Date Type Department Care Team (Late st Contact Info) Description 07/29/2024 9:00 AM EST Appointment [facility] [address] [place] [address] Jomar Kim MD [address] [place] [address] documented as of this encounter Visit Diagnoses Not on filedocumented in this encounter Care Teams Mold Car Pusher Relationship Specialty Start Date End Date Cristiane Shirley MD [address] [place], [place] [id number] PCP - General Family Medicine 12/28/14 11/18/16 Garett Holt MD Internal Medicine-Gastroenterology 12/22/12 Ruiz Stokes MD [address] [place] [address] Internal Medicine-Cardiovascular Disease 07/25/14 documented as of this encounter
--- OUTSIDE RECORDS SUMMARY | 2024-07-22 16:16 | XMS_ITS | Encounter Summary ---
Author Organization [place] [address] Care Team Providers Care Quill Fixer Name Role Phone Garett Holt MD Unavailable [phone] Ruiz Stokes MD Unavailable [phone] Cristiane Shirley MD Primary Care Provider [phone] Reason for Visit * Auth/Cert/Inpt Specialty Diagnoses / Procedures Referred By Ron t Referred To Contact Diagnoses Intermediate coronary syndrome (HCC) Intermediate coronary syndrome (HCC) Procedures [facility] (6:00) Referral ID Status Reason Start Date Expiration Date Visits Re quested Visits Authorized [id number] 1 1 Encounter Details Date Type Department Care Team (Late st Contact Info) Description 04/13/2015 8:00 AM EDT - 04/13/2015 9:00 AM EDT Surgery EDG E D TECH [facility] [place] [address] Ruiz Stokes MD [address] [address] CORONARY ANGIOGRAM / CARDIAC CATHETERIZATION Surgery Details Date/Time Status Location OR Service Patient Class Case Class Case Type Trauma Case? 04/13/2015 8:00 AM Posted [facility]G CARDIAC E D TECH IMAGING EDG CCL 3 Cardiac Same Day Surgery N/A Panel 1 Procedure LRB Anes Op Region Wound Class Comments CORONARY ANGIOGRAM / CARDIAC CATHETERIZATION N/A None [facility] (6:00) LEFT VENTRICULOGRAM N/A None Surgeon Surgeon Role Service Panel Ruiz Stokes MD Primary Cardiac 1 Special Needs JACIEL CPT; [address] documented in this encounter Social History Tobacco [...] Henning RN - 04/13/2015 10:32 AM EDT [facility] Discharge Instructions - Leg Access Best wishes are extended to you on behalf of [facility] as you are discharged. Because we are [...] TO DOCTOR: Dr Stokes in 2 weeks [phone] ADDITIONAL INSTRUCTIONS: * Smoking is hazardous to [...] discussed with patient and/or patient's legal authorized credit and collections representative. HISTORY AND PHYSICAL H&P is less [...] iron polysaccharides (FERREX 150 FORTE PLUS) 150-60-25-1 gm-tg-xtw-mg Oral Capsule Oral Take 1 capsule by [...] [facility]; Service: Allergies Allergen Reactions ??? No [...] Nonsmoker DM2, HTN, Dyslipidemia No hx of [facility] BP controlled Recent ER visit for Abd pain Neg stress test January 2015 Obese and sedentary No Hx of CAD On asa and statin BP and lipids excellent Plan Accelerating typical CP Sx suggestive on unstable angina Recent neg imaging study Plan [facility] soon Discussed need for coronary angiography with patient. Answered all questions and discussed risks, benefits and alternatives to angiography and pt agrees to proceed in the near future. Procedure will be scheduled as soon as possible. Thank you for allowing me to participate in the care of your patients. Please call with any concerns or questions Ruiz Stokes MD [facility] documented in this encounter Procedure Notes * Ruiz Stokes MD - 04/13/2015 8:[address] [facility] CARDIAC PROCEDURE NOTE Alyssa Jamil April 13, 2015 PROCEDURE(S): [facility], Select Coronary Angio, LVG FINDINGS: LM: Normal [...] [place] [address] Jomar Kim MD [address] [place] [address] documented as of this encounter Procedures Procedure Name Priority Date/Time Associated Diagnosis Comments SCANNED RHYTHM STRIPS 04/13/2015 12:40 PM EDT LEFT VENTRICULOGRAM Routine 04/13/2015 8 :58 AM EDT Intermediate coronary syndrome (HCC) CARDIAC PROCEDURE Routine 04/13/2015 8:5 8 AM EDT Intermediate coronary syndrome (HCC) E D TECH HEMODYNAMIC WAVEFORMS Routine 04/13/2015 8:28 AM EDT documented in this encounter Results * SCANNED RHYTHM STRIPS (04/13/2015 12:40 PM EDT) Anatomical Region Laterality Modality Other 04/13/2015 12:4 0 PM EDT us Unknown Unknown IMG ECG ORDERABLES Final Result * CORONARY ANGIOGRAM (COR/LHC/LV GRAM, CARDIAC CATHETERIZATION), LEFT VENTRICULOGRAM (04/13/2015 8:58AM EDT) Narrative [facility] - 04/13/2015 8:[address] [facility] CARDIAC PROCEDURE NOTE Alyssa Jamil April 13, 2015 PROCEDURE(S): [facility], Select Coronary Angio, LVG FINDINGS: LM: Normal LAD: Normal CX; Normal RCA: Dom PDA, normal EF 60% EDP 15 PLAN: Med Mgmt CONDITION POST PROCEDURE: Stable ESTIMATED BLOOD LOSS: Less than 10cc COMPLICATIONS None Ruiz Stokes MD Date: 04/13/2015 Coronary Findings Diagnostic Dominance: Right Left Main: [facility] CARDIAC PROCEDURE NOTE Alyssa Jamil April 13, [...] Fi nal Result [facility] * E D TECH HEMODYNAMIC WAVEFORMS (04/13/2015 8:28 AM EDT) 04/13/2015 8:28 AM EDT Ruiz Stokes MD CARDIAC CATH ORDERABLES Fi nal Result Performing Organization Address City/[facility]/ZIP Co de Phone Number [facility] [address] [place] [address] documented in this encounter Visit Diagnoses Diagnosis Intermediate coronary syndrome (HCC) Intermediate coronary syndrome Intermediate coronary syndrome (HCC) Intermediate coronary syndrome documented in this encounter Administered Medications Inactive Administered Medications - up to 1 most recent administrations Medication Order MAR Action Action Date Dose Rate Site 0.9 % NaCl infusion Intravenous, at 150 mL/hr, CONTINUOUS, Starting on Fri04/12/15 at 1000, Until Cyn 04/13/15 at 0914, Start 2 hours prior to procedure at 150 mL/hr. If Sodium Bicarbonate drip to infuse, 0.9% Normal Saline to infuse at Keep Open Rate., Pre-op (Floor Meds) New Bag 04/13/2015 7:10 AM EDT 1,000 mL 150 mL/hr fentaNYL (SUBLIMAZE) 50 mcg/mL injection PRN, Starting on Cyn 04/13/15 at 0828, Until Cyn 04/13/15 at 0855, Intra-procedure(Cath) Given 04/13/2015 8:43 AM EDT 50 mcg iopamidol (ISOVUE-370) 76 % injection (LOW) PRN, Starting on Cyn 04/13/15 at 0846, Until Cyn 04/13/15 at 0855, Intra-procedure(Cath) Given 04/13/2015 8:46 AM EDT 100 mL midazolam (VERSED) injection PRN, Starting on Cyn 04/13/15 at 0828, Until Cyn 04/13/15 at 0855, Intra-procedure(Cath) Given 04/13/2015 8:28 AM EDT 2 mg documented in this encounter Active and [...] 0710 (New Bag - Prov ider: Jennifer Henning, RN)1030 (Stopped - Provider: Jennifer Henning RN) PRN Medication Order 04/11/2015 04/12/2015 04/13/2015 fentaNYL (SUBLIMAZE) 50 mcg/mL injection (CANCELED) PRN, Starting on Cyn 8/ at 0828, Until Cyn 8/ at 0855, Intra-procedure(Cath) 0828 (Given - Provid er: Ana Larkin RN)0843 (Given - Provider: Ana Larkin RN) iopamidol (ISOVUE-370) 76 % injection (LOW) (CANCELED) PRN, Starting on Cyn 8 at 0846, Until Cyn 8/15 at 0855, Intra-procedure(Cath) 0846 (Given - Provid er: Ruiz Stokes MD - Comment: wasted 50 mL) midazolam (VERSED) injection (CANCELED) PRN, Starting on Cyn 8 at 0828, Until Cyn 8/15 at 0855, Intra-procedure(Cath) 0828 (Given - Provid er: Ana Larkin RN) documented in this encounter Orders Medications Ordered That Edwin ht Not Have Been Administered Count Last Ordered Date First Ordered Date 0.9 % NaCl infusion 1 04/13/2015 atropine injection 0.5 mg 1 04/13/2015 dextrose 50 % (D50W) solution 25 g 1 2014 EPINEPHrine injection 1 mg 1 04/13/2015 sodium chloride 0.9% syringe 2 [...] 04/13/2015 documented in this encounter Care Teams Quill Fixer Relationship Specialty Start Date End Date Cristiane Shirley MD [address] [place] [address] PCP - General Family Medicine 12/28/14 11/18/16 Garett Holt MD Internal Medicine-Gastroenterology 12/22/12 Ruiz Stokes MD [address] [place] [address] Internal Medicine-Cardiovascular Disease 07/25/14 documented as of this encounter
--- OUTSIDE RECORDS SUMMARY | 2024-07-22 16:16 | XMS_ITS | Encounter Summary ---
Author Organization [place] [address] Care Team Providers Care Felting Machine Operator Helper Name Role Phone Garett Holt MD Unavailable [phone] Ruiz Stokes MD Unavailable [phone] Cristiane Shirley MD Primary Care Provider [phone] Reason for Referral * Consultation (Routine) - Closed Specialty Diagnoses / Procedures Referred By Ron bansal Referred To Contact Sleep Center Diagnoses HAMIDA (obstructive sleep apnea) Cristiane Shirley MD Phone: tel: fax: Bharat Melvin MD [address] [place] [address] Phone: tel: fax: Referral ID Status Reason Start Date Expiration Date V isits Requested Visits Authorized [id number] Closed Specialty Services Required 11/15/2015 11/14/2016 1 1 * Consultation (Routine) - Closed Specialty Diagnoses / Procedures Referred By Ron bansal Referred To Contact Obstetrics and Gynecology Diagnoses History of endometrial cancer Vaginal pain Cristiane Shirley MD Phone: tel: fax: Gianni Giron MD [address] [place] [address] Phone: tel: fax: Referral ID Status Reason Start Date Expiration Date V isits Requested Visits Authorized [id number] Closed Specialty Services Required 11/15/2015 11/14/2016 99 99 Reason for Visit * Reason Comments Vaginal Pain Encounter Details Date Type Department Care Team (Late st Contact Info) Description 11/15/2015 10:30 AM EST Office Visit [facility] [address] [place] [address] Cristiane Shirley MD [address] [place] [address] Vaginal pain (Primary Dx); Type 2 diabetes mellitus without complication (HCC); DDD (degenerative disc disease), lumbosacral; Fibromyalgia; Essential hypertension; Hyperlipidemia; History of endometrial cancer; HAMIDA (obstructive sleep apnea) Social History Tobacco Use Types Packs/Day Years [...] Sign Reading Time Taken Comments Blood Pressure 114/78 11/15/2015 10:57 AM EST Pulse - - Temperature 36.4 ??C (97.6 ??F) 11/15/2015 10:[address] Respiratory Rate - - Oxygen Saturation - - Inhaled Oxygen Concentration - - Weight 117.5 kg (259 lb) 11/15/2015 10:57 AM EST Height 162.6 cm (5' 4 ) 11/15/2015 10:57 AM EST Body Mass Index 44.46 11/15/2015 10:57 AM EST documented in this encounter Ordered Prescriptions Prescription Sig Dispense Quantity Refills Last Filled Start Date End Date ciprofloxacin HCl (CIPRO) 500 mg Oral TabletIndications: Vaginal pain Take 1 Tab by mouth 2 times daily for 10 days. 20 Tab 0 11/15/2015 6 Blood-Glucose Meter Misc Kit Please fill with what her ins will cover 1 Kit 0 11/15/2015 2 metFORMIN (GLUCOPHAGE) 500 mg Oral Tablet Take 1 Tab by mouth daily. with breakfast 90 Tab 2 11/15/2015 7 amLODIPine (NORVASC) 10 mg Oral Tablet Take 1 Tab by mouth daily. 30 Tab 2 11/15/2015 6 simvastatin (ZOCOR) 10 mg Oral TabletIndications: Hyperlipidemia Take 1 Tab by mouth every evening. 90 Tab 2 11/15/2015 7 lisinopril (PRINIVIL;ZESTRIL) 10 mg Oral TabletIndications: Essential hypertension Take 2 Tabs by mouth daily. 60 Tab 2 11/15/2015 6 docusate sodium (COLACE) 100 mg Oral Capsule Take 1 Cap by mouth 2 times daily for 30 days. 60 Cap 2 11/15/2015 6 DULoxetine (CYMBALTA) 30 mg Oral Capsule, Delayed Release(E.C.)Indic ations:DDD (degenerative disc disease), lumbosacral,Fibrom yalgia Take 1 Cap by mouth daily. 30 Cap 2 11/15/2015 7 carvedilol (COREG) 6.25 mg Oral TabletIndications: Essential hypertension Take 1 Tab by mouth 2 times daily (with meals). 60 Tab 2 11/15/2015 6 documented in this encounter Progress Notes * Cristiane Shirley MD - 11/15/2015 10:55 AM EST Subjective Subjective: Patient ID: Alyssa Jamil is a 60 y.o. female. Chief Complaint Patient presents with ??? Vaginal Pain Vaginal Pain This is a recurrent problem. The current episode started in the past 7 days. The problem occurs constantly. The problem has been unchanged. Pertinent negatives include no abdominal pain, back pain, chills, diarrhea, fever, nausea, rash, sore throat or vomiting. Pt is here today for new spots on her vagina that she is concerned that may be cancer. Pt states that she had surgery to remove some of these spots in 08/22. Hyperlipidemia, Hypertension and Diabetes Care Plan - Aylssa has done well since last office visit. No complaints of side effects from medication. Diet hasbeen reviewed with patient. Last Lipid and liver panel has been reviewed. Current cholesterol goalsdiscussed with patient. Lab Results Component Value Date HDL 57 11/15/2015 HDL 47 07/18/2015 HDL 58 11/08/2014 Lab Results Component Value Date CHOLESTEROL 175 11/15/2015 CHOLESTEROL 166 07/18/2015 CHOLESTEROL 164 11/08/2014 Lab Results Component Value Date LDLCALC 91 11/15/2015 LDLCALC 79 07/18/2015 LDLCALC 89 11/08/2014 Lab Results Component Value Date TRIG 134 11/15/2015 TRIG 198* 07/18/2015 TRIG 86 11/08/2014 Lab Results Component Value Date ALT 21 11/15/2015 AST 18 11/15/2015 Home reporting of hypertension was reviewed at time of visit. Alyssa has any episodes of dizziness, lightheadedness, presyncope, syncope, headache, or chest pain. Alyssa does not report any new symptoms of possible hypertension sequelae. BP Readings from Last 3 Encounters: 11/15/15 114/78 08/23/15 126/84 08/03/15 109/61 Lab Results Component Value Date CREATININE 0.68 11/15/2015 BUN 13 11/15/2015 NA 142 11/15/2015 K 4.6 11/15/2015 CL 101 11/15/2015 CO2 29 11/15/2015 Home reporting of sugars was reviewed at time of visit. patient does not check sugars. Alyssa denies any episodes of hypo or hyperglycemia. Alyssa does not report any new symptoms of possible diabetes sequelae. Lab Results Component Value Date HGBA1C 5.6 11/15/2015 HGBA1C 5.4 07/18/2015 HGBA1C 6.1 11/08/2014 Patient Self Management - Dietary Compliance compliant most of the time Medication Compliance - compliant most of the time Self Management tools - None Self Management ability - fair Willingness to adopt healthy behaviors - fair Understanding of current medications - fair Exercise - walking 1 hours a day 1 days per week Weight - Wt Readings from Last 3 Encounters: 11/15/15 259 lb (117.482 kg) 08/23/15 271 lb (122.925 kg) 08/03/15 265 lb (120.203 kg) BMI - Body mass index is 44.44 kg/(m^2). Goals were reviewed with patient. Goals None Alyssa has set the following self management goal: improved diet, increased exercise Readiness to change: Alyssa is ready to change. Patient Barriers: financial, emotional Antiplatelet Therapy - (goals: 75-162 mg/day for increased risk, men >50, women >60, with oneadditional risk factor - smoking, htn, obesity, albuminuria, fmhx) Alyssa does have aspirin or other antiplatelet agent listed on medication list. If not, encouraged tostart taking and if taking, added to med list. Tobacco Status - (goals: no tobacco) Does patient currenty use tobacco products? no Retinal Exam - (goal: yearly) Reviewed- as per flowsheet. Microalbumin - (goal: yearly) Lab Results Component Value Date MICROALBUR 20 11/15/2015 URINEMICROAL 13.4 05/31/2014 Dental Exam - (goal: biannually) Encouraged adequate follow-up. Foot Care - (goal: yearly) Alyssa does not have diabetic neuropathy. Alyssa does not follow with a newspaper reporter. Immunization History - (goals: yearly flu shot, one pneumovax (with booster in 5 years if started before age 65), zostavax 60 and over, Tdap/Tetanus every 10 years) Immunization History Administered Date(s) Administered ??? Pneumococcal Polysaccharide 23 Valent 11/15/2015 ??? Tdap 01/06/2013 Patient Care Team: Cristiane Shirley MD as PCP - General (Family Medicine) Garett Holt MD (Internal Medicine-Gastroenterology) Ruiz Stokes MD (Internal Medicine-Cardiovascular Disease) Patients past medical, family and social histories were reviewed and updated. There were no changesexcept as noted. Review of Systems Constitutional: Negative for fever, chills, activity change and fatigue. HENT: Negative for congestion, ear pain, rhinorrhea, sinus pressure, sneezing and sore throat. Eyes: Negative. Respiratory: Negative for chest tightness, shortness of breath and wheezing. Cardiovascular: Negative. Negative for chest pain and palpitations. Gastrointestinal: Negative for nausea, vomiting, abdominal pain and diarrhea. Genitourinary: Positive for vaginal pain. Musculoskeletal: Negative for back pain, joint swelling and neck pain. Skin: Negative for rash and wound. Neurological: Negative. Psychiatric/Behavioral: Negative for behavioral problems, sleep disturbance and decreased concentration. The patient is not nervous/anxious and is not hyperactive. All other systems reviewed and are negative. Objective Objective: Filed Vitals: 11/15/15 1057 BP: 114/78 Temp: 97.6 ??F (36.4 ??C) TempSrc: Tympanic Height: 5' 4 (1.626 m) Weight: 259 lb (117.482 kg) Body mass index is 44.44 kg/(m^2). Physical Exam Constitutional: She is oriented to person, place, and time. She appears well- developed and well-nourished. No distress. HENT: Head: Normocephalic and atraumatic. Right Ear: External ear normal. Left Ear: External ear normal. Mouth/Throat: Oropharynx is clear and moist. Eyes: Conjunctivae and EOM are normal. Pupils [...] tenderness. Thereis no rebound and no guarding. Genitourinary: Right labia with erythema and edema Musculoskeletal: She exhibits no edema. Lymphadenopathy: She has no cervical adenopathy. Neurological: She is alert and oriented to person, place, and time. No cranial nerve deficit. Skin: Skin is warm. No rash noted. Psychiatric: She has a normal mood and affect. Her behavior is normal. Judgment and thought contentnormal. Nursing note and vitals reviewed. Assessment and Plan: Alyssa was seen today for vaginal pain. Diagnoses and all orders for this visit: Vaginal pain Orders: - ciprofloxacin HCl (CIPRO) 500 mg Oral Tablet; Take 1 Tab by mouth 2 times daily for 10 days. - Obstetrics / Gynecology Type 2 diabetes mellitus without complication (HCC) Orders: - Comprehensive Metabolic Panel - Clinic Collect; Future - Hemoglobin A1c - Clinic Collect; Future - Lipid Screen - Clinic Collect; Future - Venipuncture - Thyroid Stimulating Hormone - Clinic Collect; Future - POCT Microalbumin DDD (degenerative disc disease), lumbosacral Orders: - DULoxetine (CYMBALTA) 30 mg Oral Capsule, Delayed Release(E.C.); Take 1 Cap by mouth daily. Fibromyalgia Orders: - DULoxetine (CYMBALTA) 30 mg Oral Capsule, Delayed Release(E.C.); Take 1 Cap by mouth daily. Essential hypertension Orders: - carvedilol (COREG) 6.25 mg Oral Tablet; Take 1 Tab by mouth 2 times daily (with meals). - lisinopril (PRINIVIL;ZESTRIL) 10 mg Oral Tablet; Take 2 Tabs by mouth daily. Hyperlipidemia Orders: - simvastatin (ZOCOR) 10 mg Oral Tablet; Take 1 Tab by mouth every evening. History of endometrial cancer Orders: - Obstetrics / Gynecology HAMIDA (obstructive sleep apnea) Orders: - Sleep Studies Other orders - docusate sodium (COLACE) 100 mg Oral Capsule; Take 1 Cap by mouth 2 times daily for 30 days. - amLODIPine (NORVASC) 10 mg Oral Tablet; Take 1 Tab by mouth daily. - metFORMIN (GLUCOPHAGE) 500 mg Oral Tablet; Take 1 Tab by mouth daily. with breakfast - Blood-Glucose Meter [facility] Kit; Please fill with what her ins will cover - Pneumococcal polysaccharide vaccine 23-valent greater than or equal to 2yo subcutaneous/IM Had endometrial cancer. She had complete hysterectomy. She sees dr Bre Selby at [facility] if symptoms worsen or fail to improve. documented in this encounter Plan of Treatment Upcoming Encounters Date Type Department Care Team (Late st Contact Info) Description 07/29/2024 9:00 AM EST Appointment [facility] [address] [place] [address] Jomar Kim MD [address] [place] [address] Scheduled Referrals Name Type Priority Associated Diagnoses Orde r Schedule AMB REFERRAL TO OB-NCQA SPECIALIST Outpatient Referral Routine History of endometrial cancer Vaginal pain Ordered: 11/15/2015 AMB REFERRAL TO SLEEP STUDIES Outpatient Referral Routine HAMIDA (obstructive sleep apnea) Ordered: 11/15/2015 documented as of this encounter Procedures Procedure Name Priority Date/Time Associated Diagnosis Comments POCT MICROALBUMIN Routine 11/15/2015 11: 43 AM EST Type 2 diabetes mellitus without complication (HCC) documented in this encounter Results * POCT MICROALBUMIN (11/15/2015 11:43 AM EST) Microalb, Ur 20 <=20 mg/L [facility] Lot Number [id number] SEP OFFICE Expiration Date SEP OFFICE SeriAl # SEP OFFICE Urine specimen (specimen) 11/15/2015 11:43 AM EST Cristiane Shirley MD POINT OF CARE TEST ORDERABLES Final Result Performing Organization Address [facility] Co de Phone Number [facility] * THYROID STIMULATING HORMONE (11/15/2015 11:40 AM EST) TSH 1.610 0.270 - 4.200 mcIU/mL [facility] Blood specimen (specimen) UPPER LIMB STRUCTURE / Unknown 11/15/2015 11:40 AM EST 11/15/2015 7:45 PM EST us Cristiane Shirley MD CHEMISTRY ORDERABLES Final Res ult Performing Organization Address [facility] Co de Phone Number [facility] [address] [place] [address] * LIPID SCREEN (11/15/2015 11:40 AM EST) Cholesterol 175 <=200 mg/dL [facility] Comment: < 200 ?Desirable 200 - 239 ? Borderline High >= 240 ?High Triglyceride 134 <=150 mg/dL [facility] Comment: < 150 ? Normal 150 - 199 ?Borderline High 200 - 499 ?High ??>= 500 ? Very High HDL 57 >=40 mg/dL [facility] Comment: ?? > 60 ?Optimal 40 - 60 ?Acceptable ?? < 40 ?Low LDL Calculated 91 <=100 mg/dL [facility] Comment: ??< 100 ?Optimal 100 - 129 ? Near or above optimal 130 - 159 ? Borderline High 160 - 189 ? High >= 190 ?Very High Blood specimen (specimen) UPPER LIMB STRUCTURE / Unknown 11/15/2015 11:40 AM EST 11/15/2015 7:45 PM EST Cristiane Shirley MD CHEMISTRY ORDERABLES Edited Re sult - Final [facility] [address] [place] [address] * HEMOGLOBIN A1C (11/15/2015 11:40 AM EST) Hgb A1c 5.6 <=7.0 % [facility] Comment: Reference Interval for Hgb A1c Hgb A1c ?Interpretation ? < 6.0 ?Non-Diabetic Range 6.0 - 7.0 ? ADA Therapeutic Target ??> 7.0 ? Action suggested Blood specimen (specimen) UPPER LIMB STRUCTURE / Unknown 11/15/2015 11:40 AM EST 11/15/2015 7:45 PM EST Cristiane Shirley MD CHEMISTRY ORDERABLES Final Res ult Performing Organization Address [facility]/ZIP Co de Phone Number [facility] [address] [place] [address] * COMPREHENSIVE METABOLIC PANEL (11/15/2015 11:40 AM EST) Sodium 142 136 - 145 mmol/L [facility] Potassium 4.6 3.5 - 5.0 mmol/L [facility] Chloride 101 98 - 107 mmol/L [facility] Total CO2 29 22 - 29 mmol/L [facility] Anion Gap 12 7 - 16 mmol/L [facility] Calcium 9.9 8.6 - 10.2 mg/dL [facility] Glucose Lvl 95 74 - 100 mg/dL [facility] BUN 13 6 - 20 mg/dL [facility] Creatinine 0.68 0.51 - 1.30 mg/dL [facility] Albumin 4.3 3.5 - 5.2 gm/dL [facility] Total Protein 7.2 6.4 - 8.3 gm/dL [facility] Bili Total 0.3 0.1 - 1.3 mg/dL [facility] AST 18 <=40 IU/L [facility] ALT 21 <=41 IU/L [facility] Alk Phos 69 35 - 104 IU/L [facility] GFR Afr Am >60 [facility] GFR Non Afr Am >60 [facility] Blood specimen (specimen) UPPER LIMB STRUCTURE / Unknown 11/15/2015 11:40 AM EST 11/15/2015 7:45 PM EST Cristiane Shirley MD CHEMISTRY ORDERABLES Edited Re sult - Final Performing Organization Address [facility] Co de Phone Number [facility] [address] [place] [address] documented in this encounter Visit Diagnoses Diagnosis Vaginal pain- Primary Unspecified symptom associated with female genital organs Type 2 diabetes mellitus without complication (HCC) DDD (degenerative disc disease), lumbosacral Degeneration of lumbar or lumbosacral intervertebral disc Fibromyalgia Mylagia and myositis, unspecified Essential hypertension Unspecified essential hypertension Hyperlipidemia Other and unspecified hyperlipidemia History of endometrial cancer Personal history of malignant neoplasm of other parts of uterus HAMIDA (obstructive sleep apnea) Obstructive sleep apnea (adult) (pediatric) documented in this encounter Discontinued Medications Medication Sig Discontinue Reason Start Date End Da te carvedilol (COREG) 6.25 mg Oral TabletIndications:Acute coronary syndrome (HCC),Chest pain, unspecified chest pain type,Systolic murmur,Type 2 diabetes mellitus without complication (HCC) Take 1 Tab by mouth 2 times daily (with meals). Reorder 05/08/2015 11/15/2015 docusate sodium (COLACE) 100 mg Oral Capsule Take 1 Cap by mouth 2 times daily for 30 days. Reorder 08/03/2015 11/15/2015 lisinopril (PRINIVIL;ZESTRIL) 10 mg Oral TabletIndications:Essentia l hypertension Take 2 Tabs by mouth daily. Reorder 03/15/2015 11/15/2015 simvastatin (ZOCOR) 10 mg Oral TabletIndications:Hyperlip idemia Take 1 Tab by mouth every evening. Reorder 03/15/2015 11/15/2015 amLODIPine (NORVASC) 10 mg Oral Tablet TAKE 1 TAB BY MOUTH DAILY. Reorder 09/30/2015 11/15/2015 metFORMIN (GLUCOPHAGE) 500 mg Oral Tablet TAKE 1 TAB BY MOUTH DAILY (WITH BREAKFAST). Reorder 09/30/2015 11/15/2015 documented as of this encounter Orders Immunization/Injection Count Last Ordered Date First Ordered Date PNEUMOCOCCAL POLYSACCHARIDE VACCINE 23-VALENT =>2YO SQ/IM 1 11/15/2015 Charge Count Last Ordered Date First Orde red Date [place] COLLECTION VENOUS BLOOD,VENIPUNCTURE 1 0 11/15/2015 documented in this encounter Care Teams Felting Machine Operator Helper Relationship Specialty Start Date End Date Cristiane Shirley MD [address] [place] [address] PCP - General Family Medicine 12/28/14 11/18/16 Garett Holt MD Internal Medicine-Gastroenterology 12/22/12 Ruiz Stokes MD [address] [place] [id number] Internal Medicine-Cardiovascular Disease 07/25/14 documented as of this encounter
--- OUTSIDE RECORDS SUMMARY | 2024-07-22 16:16 | XMS_ITS | Encounter Summary ---
Author Organization [place] [address] Care Team Providers Care Slunk Skinner Name Role Phone Garett Holt MD Unavailable [phone] Ruiz Stokes MD Unavailable [phone] Cristiane Shirley MD Primary Care Provider [phone] Reason for Visit * Reason Onset Date Comments Procedure 05/11/2015 SURGERY INFO Encounter Details Date Type Department Care Team (Late st Contact Info) Description 05/11/2015 Telephone [facility] [address] [place] [address] Brynn Barth, [facility] [address] [phone] Procedure (SURGERY INFO) Social History Tobacco Use Types Packs/Day Years [...] encounter Miscellaneous Notes * Telephone Encounter - Antoinette Bryant - 05/23/2015 3:19 PM EDT Samaria Houston (Friend) called to cancel surgery. I requested to speak with patient since I didn't see this friends name on list and she got on the phone. Patient is getting a second opinion and wants tocancel. Cancelled with surgery scheduling. * Telephone Encounter - Brynn Barth MA - 05/16/2015 9:27 AM EDT Left message w/ spouse for patient to return call. * Telephone Encounter - Brynn Barth MA - 05/11/2015 2:31 PM EDT No answer/ no vm * Telephone Encounter - Brynn Barth MA - 05/11/2015 10:49 AM EDT Called patient to inform them of their upcoming surgery and related information. Patient is scheduled for SURGERY on 05/31/15 at 1:25 PM at the [facility]. Patient will need to arrive two hoursprior to their scheduled procedure time. Patient was advised nothing to eat or drink from midnight the night prior to their procedure. If they smoke, they are advised not to smoke the day of the procedure. The hospital will contact the patient to register and schedule any necessary pre-admission testing with the patient. Patient informed must keep their pre-admission testing appointment or the surgery will be cancelled. * Telephone Encounter - Brynn Barth MA - 05/11/2015 10:49 AM EDT ----- Message from Arsalan Palomino MD sent at 04/24/2015 11:43 AM EDT ----- Scheduled for D and C hysteroscopy with myosure. documented in this encounter Plan of Treatment Upcoming Encounters Date Type Department Care Team (Late st Contact Info) Description 07/29/2024 9:00 AM EST Appointment [facility] [address] [facility]. [place], [place] [id number] Jomar Kim MD [address] [place], [place] [id number] documented as of this encounter Visit Diagnoses Not on filedocumented in this encounter Care Teams Slunk Skinner Relationship Specialty Start Date End Date Cristiane Shirley MD [address] [place] [address] PCP - General Family Medicine 12/28/14 11/18/16 Garett Holt MD Internal Medicine-Gastroenterology 12/22/12 Ruiz Stokes MD [address] [place] [address] Internal Medicine-Cardiovascular Disease 07/25/14 documented as of this encounter
--- OUTSIDE RECORDS SUMMARY | 2024-07-22 16:16 | XMS_ITS | Encounter Summary ---
Author Organization [place] Address [facility] [address] [place] [address] Care Team Providers Care Enforcement Officer Name Role Phone Garett Holt MD Unavailable [phone] Ruiz Stokes MD Unavailable [phone] Cristiane Shirley MD Primary Care Provider [phone] Encounter Details Date Type Department Care Team (Latest Contact Info) Description 12/13/2015 7:57 PM EDT - 12/13/2015 11:59 PM EDT Hospital Encounter [facility] [address] [place] [phone] Labial lesion Discharge Disposition: Home or Self Care Social [...] file documented as of this encounter Discharge Disposition Disposition Code Departure Means Destination Home or Self Care documented in this encounter Plan of Treatment Upcoming Encounters Date Type Department Care Team (Late st Contact Info) Description 07/29/2024 9:00 AM EST Appointment [facility] [address] [place] [address] Jomar Kim MD [address] [place] [address] documented as of this encounter Procedures Procedure Name Priority Date/Time Associated Diagnosis Comments PATHOLOGY TISSUE REPORT Routine 12/13/2015 7:58 PM EDT documented in this encounter Results * PATHOLOGY TISSUE REPORT (12/13/2015 7:58 PM EDT) Surgical Pathology Report ? PATIENT NAME:ALYSSA CAMPOS ?Surgical Pathology Report ? Accession Number ?Collected Date/Time ? Received Date/Time ? [id number] ? 12/13/15 19:58 EDT ?12/14/15 08:36 EDT ? Diagnosis ? Left labial lesion, biopsy: ? - Epidermal cyst. ? - Negative for dysplasia. ? Vesta Luciano ? (Electronically signed by) ? Verified: 12/18/2015 ? FTT Lab ? Clinical Information ? Labial lesion ? Gross Description ? Received in formalin labeled with the patient's name and left labial ? lesion is a 3 x 2 x ? 1 mm truong skin fragment. Entirely submitted intact in one cassette. / BC ? DRB/DH ? Microscopic Description ? Microscopic examination is performed and the findings corroborate the ? diagnosis. [facility] 12/13/2015 7:58 PM EDT us Gianni Giron MD PATHOLOGY ORDERABLES Final R esult [facility] [address] [place] [address] documented in this encounter Visit Diagnoses Diagnosis Labial lesion Other specified noninflammatory disorder of vulva and perineum documented in this encounter Orders Lab Orders Without Results Count Last Ordered D ate First Ordered Date PATHOLOGY TISSUE REQUEST 1 12/13/2015 documented in this encounter Care Teams Enforcement Officer Relationship Specialty Start Date End Date Cristiane Shirley MD [address] [place] [address] PCP - General Family Medicine 12/28/14 11/18/16 Garett Holt MD Internal Medicine-Gastroenterology 12/22/12 Ruiz Stokes MD [address] [id number] Internal Medicine-Cardiovascular Disease 07/25/14 documented as of this encounter
--- OUTSIDE RECORDS SUMMARY | 2024-07-22 16:16 | XMS_ITS | Encounter Summary ---
Author Organization [place] [address] Care Team Providers Care Project Inspector Name Role Phone Garett Holt MD Unavailable [phone] Ruiz Stokes MD Unavailable [phone] Cristiane Shirley MD Primary Care Provider [phone] Reason for Visit * Reason Onset Date Comments ED Follow-Up Call 08/08/2015 Encounter Details Date Type Department Care Team (Late st Contact Info) Description 08/08/2015 Patient Outreach [facility] [address] [place] [address] Soledad Mcmillan, [facility] [address] [facility] [address] [place] [address] ED Follow-Up Call Social History Tobacco Use [...] Telephone Encounter - Soledad Mcmillan RMA - 08/08/2015 4:33 PM EST Left message, [email or web address] message sent documented in this encounter Plan of Treatment Upcoming Encounters Date Type Department Care Team (Late st Contact Info) Description 07/29/2024 9:00 AM EST Appointment [facility] [address] [place] [address] Jomar Kim MD [address] [place] [address] documented as of this encounter Visit Diagnoses Not on filedocumented in this encounter Care Teams Project Inspector Relationship Specialty Start Date End Date Cristiane Shirley MD [address] [place] [address] PCP - General Family Medicine 12/28/14 11/18/16 Garett Holt MD Internal Medicine-Gastroenterology 12/22/12 Ruiz Stokes MD [address] [place] [address] Internal Medicine-Cardiovascular Disease 07/25/14 documented as of this encounter
--- OUTSIDE RECORDS SUMMARY | 2024-07-22 16:16 | XMS_ITS | Encounter Summary ---
Author Organization [place] [address] Care Team Providers Care Tape Folding Machine Operator Name Role Phone Garett Holt MD Unavailable [phone] Ruiz Stokes MD Unavailable [phone] Cristiane Shirley MD Primary Care Provider [phone] Reason for Visit * Reason Comments Follow-up pain both arms, sob going from laying to sitting position Encounter Details Date Type Department Care Team (Late st Contact Info) Description 07/21/2015 1:45 PM EST Office Visit [facility] [address] [address] Ruiz Stokes MD [address] [place] [address] SOB (shortness of breath) (Primary Dx); Acute coronary syndrome (HCC); Systolic murmur; Chest pain, unspecified chest pain type; Type 2 diabetes mellitus without complication (HCC); Encounter for screening colonoscopy; Leg pain, right; Chest discomfort Social History Tobacco Use Types Packs/Day Years [...] Sign Reading Time Taken Comments Blood Pressure 140/82 07/21/2015 2:09 PM EST Pulse 60 07/21/2015 2:09 PM EST Temperature - - Respiratory Rate - - Oxygen Saturation - - Inhaled Oxygen Concentration - - Weight 122.1 kg (269 lb 3.2 oz) 07/21/2015 2:09 PM EST Height 162.6 cm (5' 4 ) 07/21/2015 2:09 PM EST Body Mass Index 46.21 07/21/2015 2:09 PM EST documented in this encounter Progress Notes * Ruiz Stokes MD - 07/21/2015 2:29 PM EST Cardiology Progress Note Patient Name: Alyssa Jamil : 1955 Subjective Chief Complaint Patient presents with ??? Follow-up pain both arms, sob going from laying to sitting position HPI Routine follow up Chronic SOB Mild noncardiac CP Complains of arms and shoulder pain Unassociated with activity BP controlled LDL 79 Nonsmoker Remains on asa BB statin Joce-I Morbidly obese and sedentary Neg stress test January 2014 IMPRESSIONS Stress and rest perfusion images are normal. Reversible defects absent. Normal left ventricular wall motion and contractility. Nondiagnostic ekg with Lexiscan protocol ROS Denies: fever, chills, nausea, vomiting, dizziness, [...] (HCC) 2013 borderline ??? Clotting disorder (HCC) Current Outpatient Rx Name Route Sig Dispense Refill ??? cephALEXin (KEFLEX) 500 mg Oral Capsule Oral Take 1 Cap by mouth every 8 hours for 10 days. 30 Cap 0 ??? carvedilol (COREG) 6.25 mg Oral Tablet Oral Take 1 Tab by mouth 2 times daily (with meals). 60 Tab 6 ??? metFORMIN (GLUCOPHAGE) 500 mg Oral Tablet Oral Take 1 Tab by mouth daily (with breakfast). 90 Tab 1 ??? simvastatin (ZOCOR) 10 mg Oral Tablet Oral Take 1 Tab by mouth every evening. Patient taking differently: Take 20 mg by mouth every evening. 90 Tab 3 refill request ??? DULoxetine (CYMBALTA) 30 mg Oral Capsule, [...] iron polysaccharides (FERREX 150 FORTE PLUS) 150-60-25-1 gn-co-dwl-mg Oral Capsule Oral Take 1 capsule by mouth daily (with breakfast). 30 capsule 5 ??? acetaminophen (TYLENOL) 500 mg Oral Tablet Oral Take 2 tablets by mouth every 6 hours as needed for Pain. 120 tablet 2 ??? Aspirin (ASPIRIN) 81 mg Oral Take 1 Tab by mouth daily. 100 Tab 4 ??? lisinopril (PRINIVIL;ZESTRIL) 10 mg Oral Tablet Oral Take 2 Tabs by mouth daily. 60 Tab 5 ??? ondansetron (ZOFRAN ODT) 4 mg disintegrating tablet Oral Take 1 Tab by mouth every 6 hours as needed for Nausea for up to 10 doses. 10 Tab 0 History Social History ??? Marital Status: Spouse [...] Blisters in Mouth ??? No Known Allergies Family History Problem Relation Age of Onset ??? Heart Disease Father ??? Cataracts Father ??? Diabetes Father ??? Cancer Maternal Grandmother ??? Colon Cancer Maternal Grandmother Objective Filed Vitals: 07/21/15 1409 BP: 140/82 Pulse: 60 Exam: GENERAL APPEARANCE: In no acute distress [...] No results found for this visit on 07/21/15. Labs Lab Results Component Value Date CHOLESTEROL 166 07/18/2015 CHOLESTEROL 164 11/08/2014 CHOLESTEROL 198 01/02/2014 HDL 47 07/18/2015 HDL 58 11/08/2014 HDL 49 01/02/2014 LDLCALC 79 07/18/2015 LDLCALC 89 11/08/2014 LDLCALC 125* 01/02/2014 TRIG 198* 07/18/2015 TRIG 86 11/08/2014 TRIG 120 01/02/2014 No results found for: INR, PROTIME Lab Results Component Value Date WBC 8.3 04/10/2015 WBC 9.6 09/13/2014 WBC 10.9 04/02/2014 HGB 11.6* 04/10/2015 HGB 12.1 09/13/2014 HGB 12.0 04/02/2014 HCT 35.8 04/10/2015 HCT 37.1 09/13/2014 HCT 36.3 04/02/2014 MCV 86.4 04/10/2015 MCV 87.1 09/13/2014 MCV 85.3 04/02/2014 PLT 220 04/10/2015 PLT 249 09/13/2014 PLT 243 04/02/2014 Lab Results Component Value Date HGBA1C 5.4 07/18/2015 HGBA1C 6.1 11/08/2014 HGBA1C 6.1 07/23/2014 Lab Results Component Value Date NA 145 07/18/2015 NA 141 04/10/2015 NA 140 11/08/2014 K 4.4 07/18/2015 K 4.4 04/10/2015 K 4.0 11/08/2014 BUN 10 07/18/2015 BUN 18 04/10/2015 BUN 17 11/08/2014 CALCIUM 10.0 07/18/2015 CALCIUM 10.0 04/10/2015 CALCIUM 9.9 11/08/2014 CL 101 07/18/2015 CL 101 04/10/2015 CL 102 11/08/2014 CO2 29 07/18/2015 CO2 28 04/10/2015 CO2 30* 11/08/2014 CREATININE 0.93 07/18/2015 CREATININE 0.80 04/10/2015 CREATININE 0.65 11/08/2014 GLU 93 07/18/2015 GLU 109* 04/10/2015 GLU 108* 11/08/2014 Lab Results Component Value Date ALT 28 07/18/2015 ALT 19 04/10/2015 ALT 20 11/08/2014 AST 14 07/18/2015 AST 15 04/10/2015 AST 15 11/08/2014 ALKPHOS 70 07/18/2015 ALKPHOS 70 04/10/2015 ALKPHOS 74 11/08/2014 BILITOT 0.2 06/22/2012 Assessment Patient Active Problem [...] whether generalized or localized, unspecified site Impression Routine follow up Chronic SOB Mild noncardiac CP Complains of arms and shoulder pain Unassociated with activity BP controlled LDL 79 Nonsmoker Remains on asa BB statin Joce-I Morbidly obese and sedentary Neg stress test January 2014 IMPRESSIONS Stress and rest perfusion images are normal. Reversible defects absent. Normal left ventricular wall motion and contractility. Nondiagnostic ekg with Lexiscan protocol Plan Cont Rx Labs per Dr Shirley F/U annually Cont RF modification Thank you for allowing me to participate in the care of your patients. Please call with any concerns or questions Ruiz Stokes MD [facility] documented in this encounter Miscellaneous Notes * Patient Instructions - Lisbet Ojeda RMA - 07/21/2015 2:05 PM EST You may be contacted by [...] AM EST Appointment [facility] [address] [place], [place] [id number] Jomar Kim MD [address] [place], [place] [id number] documented as of this encounter Procedures Procedure Name Priority Date/Time Associated Diagnosis Comments POCT EKG Routine 07/21/2015 2:16 PM EST SOB (shortness of breath) Acute coronary syndrome (HCC) Systolic murmur Chest pain, unspecified chest pain type Type 2 diabetes mellitus without complication (HCC) Encounter for screening colonoscopy Leg pain, right Chest discomfort documented in this encounter Results * POCT EKG (07/21/2015 2:16 PM EST) 07/21/2015 2:16 PM EST Impressions [facility] - 07/21/2015 2:16 PM EST NSR Low voltage ekg PACs noted Ruiz Stokes MD POINT OF CARE CARDIOLOGY F inal Result [facility] OFF[facility] documented in this encounter Visit Diagnoses Diagnosis SOB (shortness of breath)- Primary Shortness of breath Acute coronary syndrome (HCC) Intermediate coronary syndrome Systolic murmur Undiagnosed cardiac murmurs Chest pain, unspecified chest pain type Type 2 diabetes mellitus without complication (HCC) Encounter for screening colonoscopy Special screening for malignant neoplasms, colon Leg pain, right Pain in limb Chest discomfort Other chest pain documented in this encounter Care Teams Tape Folding Machine Operator Relationship Specialty Start Date End Date Cristiane Shirley MD [address] [place] [address] PCP - General Family Medicine 12/28/14 11/18/16 Garett Holt MD Internal Medicine-Gastroenterology 12/22/12 Ruiz Stokes MD [address] [facility] [place] [address] Internal Medicine-Cardiovascular Disease 07/25/14 documented as of this encounter
--- OUTSIDE RECORDS SUMMARY | 2024-07-22 16:16 | XMS_ITS | Encounter Summary ---
Author Organization [place] [address] Care Team Providers Care Supervisor Hot Dip Plating Name Role Phone Garett Holt MD Unavailable [phone] Ruiz Stokes MD Unavailable [phone] Cristiane Shirley MD Primary Care Provider [phone] Reason for Visit * Reason Comments Procedure libal bx Encounter Details Date Type Department Care Team (Late st Contact Info) Description 12/13/2015 10:00 AM EDT Office Visit [facility] [address] [place] [phone] Gianni Giron MD [address] [place] [address] Labial lesion (Primary Dx) Social History Tobacco Use Types [...] Sign Reading Time Taken Comments Blood Pressure 140/80 12/13/2015 10:27 AM EDT Pulse - - Temperature - - Respiratory Rate - - Oxygen Saturation - - Inhaled Oxygen Concentration - - Weight - - Height 162.6 cm (5' 4 ) 12/13/2015 10:27 AM EDT Body Mass Index - - documented in this encounter Progress Notes * Gianni Giron MD - 12/13/2015 11:02 AM EDT [facility] Subjective: Alyssa Jamil is a(n)60 y.o. female who comes to the office today for labial biopsy. She was in office last week for a bump she had felt. A small lesion was noted at that time on anteriorlabia majora close to mons pubis. Since that time Ms. Jamil said she had some drainage from that area and that the bump is smaller than it was but she can still feel it. ROS were all negative except those mentioned in the HPI Objective: Filed Vitals: 12/13/15 1027 BP: 140/80 PE: Labia inspected in area of previously noted lesion. Hair clipped at skin level to aid in inspection. No discrete lesion noted. Area of concern is comprised of thickened skin with a pebbly appearance.Biopsy taken from this area. Skin prepped with Betadine. One ml of 1% xylocaine used for anesthesia. After testing for numbness,a biopsy taken with a 3mm punch. samole obtained was placed in fixative for transport to lab. Smallamount of bleeding controlled with silver nitrate and pressure. Dressed with antibiotic ointment Assessment: Alyssa was seen today for procedure. Labial skin biopsy. Care discussed. To keep area clean and dry. No tub soaks until visit next week. Diagnoses and all orders for this visit: Labial lesion Orders: - Pathology Tissue Request; Future Plan: return in a week for follow up. documented in this encounter Plan of Treatment Upcoming Encounters Date Type Department Care Team (Late st Contact Info) Description 07/29/2024 9:00 AM EST Appointment [facility] [address] [place] [address] Jomar Kim MD [address] [place] [address] Scheduled Orders Name Type Priority Associated Diagnoses Orde r Schedule PATHOLOGY TISSUE REQUEST Lab Routine Labial lesion 1 Occurrences starting 12/13/2015 until 12/12/2016 documented as of this encounter Visit Diagnoses Diagnosis Labial lesion- Primary Other specified noninflammatory disorder of vulva and perineum documented in this encounter Care Teams Supervisor Hot Dip Plating Relationship Specialty Start Date End Date Cristiane Shirley MD [address] [place], [place] [id number] PCP - General Family Medicine 12/28/14 11/18/16 Garett Holt MD Internal Medicine-Gastroenterology 12/22/12 Ruiz Stokes MD [address] [place] [address] Internal Medicine-Cardiovascular Disease 07/25/14 documented as of this encounter
--- OUTSIDE RECORDS SUMMARY | 2024-07-22 16:16 | XMS_ITS | Encounter Summary ---
Author Organization [employer] [place] [address] Care Team Providers Care Customer Care Coordinator Name Role Phone Garett Holt MD Unavailable [phone] Ruiz Stokes MD Unavailable [phone] Cristiane Shirley MD Primary Care Provider [phone] Reason for Visit * Reason Comments Abdominal Pain Pt reports that she has had abdominal pain and leg swelling for several days. cpta none Encounter Details Date Type Department Care Team (Late st Contact Info) Description 05/21/2016 4:36 PM EDT - 05/21/2016 9:18 PM EDT Emergency [facility] [address] [place] [address] Dedrick Garcia MD [address] [place] [id number] Atypical chest pain (Primary Dx); Hematuria; Abdominal pain, unspecified abdominal location Discharge Disposition: Home or Self Care Social [...] Sign Reading Time Taken Comments Blood Pressure 116/54 05/21/2016 8:17 PM EDT Pulse 53 05/21/2016 8:17 PM EDT Temperature 36.8 ??C (98.3 ??F) 05/21/2016 5:34 PM ED T Respiratory Rate 11 05/21/2016 8:17 PM EDT Oxygen Saturation 100% 05/21/2016 8:17 PM EDT Inhaled Oxygen Concentration - - Weight 117.9 kg (260 lb) 05/21/2016 5:34 PM EDT Height 170.2 cm (5' 7 ) 05/21/2016 5:34 PM EDT Body Mass Index 40.72 05/21/2016 5:34 PM EDT documented in this encounter Discharge Instructions * Discharge Instructions* Kalie Sherman, RYAN - 05/21/2016 8:52 PM EDT Rest. Drink plenty of fluids (water). Prilosec daily as directed. Take this medication at the same time each day. Wahiawa as prescribed for more severe pain. Do not drive, operate machinery, sign legal documents or drink alcohol while taking Wah[place]. Return for increased pain, fever, vomiting, trouble breathing or new or worsening concerns. Patient Education Regarding Narcotics and Sedatives A narcotic is a drug which has been declared by federal or state law to be illegal for sale or use,but may be dispensed under a physician's prescription. A sedative is a medicine that has a calming effect and may be used to treat nervousness or restlessness. Narcotics and sedatives are classified as controlled substances. The basis for control and regulation is the danger of addiction, abuse, physical and mental harm (including ), the trafficking by illegal means, and the dangers from actions of those who have used the substances. Examples of narcotics include: Hydrocodone, Oxycodone, & Tylenol #3. Examples of sedatives are Ativan and Xanax. Proper use of Controlled Substances 1. Carefully follow the physician instructions for use, including timing of doses, the correct amount, and whether to take with or without food; 2. Do not use medication after the expiration date; 3. Do not share medication with others. It is illegal to share, sell or give away controlled substances; 4. Do not take the medication with alcohol or other sedatives; 5. Do not crush, break or chew the medication; 6. Contact your family physician or return to the emergency room for any adverse reactions; Driving and work safety 1. Controlled substances may cause sleepiness, clouded thinking, decreased concentration, slower reflexes, or un-coordination, all of which may create a danger to you and others when driving or operating certain types of machinery; 2. Avoid driving or engaging in other potentially dangerous work or other activities, for a specific period of time until the initial effects of the controlled substances no longer create such dangers; and, 3. Ingesting other substances, such as alcohol, benzodiazepines or some cold remedies, at the same time you are taking the controlled substances prescribed or dispensed may increase cognitive and motor impairment. 1. Controlled substances in should only be used on a minimal basis unless the benefits ofsuch use outweigh the risks; 2. Call your study abroad coordinator or return to the emergency room if you experience an adverse reaction or side effects from the medication Potential for overdose and response 1. The use of controlled substances creates a risk of respiratory depression, or decreased respiratory rate, which may result in serious harm or ; 2. Signs of overmedication include: a. intoxicated behavior, such as confusion, slurred speech, or stumbling; b. feeling dizzy or faint; c. acting very drowsy or groggy; d. unusual snoring, gasping, or snorting during sleep; and/or e. difficulty waking up from sleep or difficulty in staying awake. 3. Call ???911?? if a person taking a controlled substance is observed or is experiencing any of the following conditions: a. patient cannot be aroused or awakened, or patient is unable to talk after being awakened; b. patient has shortness of breath, slow or light breathing, or stopped breathing; c. gurgling noises coming from the patient???s mouth or throat; d. patient???s body is limp, seems lifeless; e. patient???s face is pale or clammy; f. patient???s fingernails or lips are turning purple or blue; and/or g. patient???s heartbeat is slow, unusual or stopped. Safe storage of controlled substances 1. Partners, family members or other persons may improperly obtain your controlled substances if those substances are not stored in a safe manner; 2. Keep controlled substance prescribed or dispensed in the original container; 3. Store controlled substances in a locked cabinet or secure storage unit that is cool, dry, and out of direct sunlight, such as: a. an existing safe; b. a cut-proof travel bag; c. a portable lock box designed for travel; or, d. a locking medical box. 4. Avoid storage of controlled substances in: a. an unlocked medicine cabinet; b. in the car; or, c. in a refrigerator or freezer unless specifically recommended by the pharmacist. 5. Immediately notify your family physician or the police if any controlled substance which has been prescribed is stolen or improperly taken by another individual. Proper Disposal 1. If a controlled substance is or you no longer require using the medication for your condition, please dispose of properly; 2. In order to dispose of controlled substances properly, turn in unused medication to your local pharmacy or approved drug disposal facility; 3. Do not flush unused medication down the toilet due to environmental reasons; A listing of drug disposal locations can be found at http://www.odcp.ky.gov * Attachments The following attachments cannot be sent through Care Everywhere. * CHEST PAIN (NONSPECIFIC)-BRIEF (HUNGARIAN) * FOOD CHOICES FOR GASTROESOPHAGEAL REFLUX DISEASE, ADULT, [id number] (HUNGARIAN) * GASTROESOPHAGEAL REFLUX DISEASE, ADULT, [id number] (HUNGARIAN) documented in this encounter Medications at Time of Discharge carvedilol (COREG) 6.25 mg Oral Tablet Take 1 Tab by mouth 2 times daily. with meals 60 Tab 6 04/09/2016 03/14/2017 omeprazole (PRILOSEC) 20 mg Oral Capsule, Delayed Release(E.C.) Take 1 Cap by mouth daily for 20 days. 30 Cap 05/21/2016 06/10/2016 documented as of this encounter Ordered Prescriptions Prescription Sig Dispense Quantity Refills Last Filled Start Date End Date HYDROcodone-acetami nophen (NORCO) 5-325 mg Oral Tablet 1 tab PO every 4-6 hours PRN 15 Tab 05/21/2016 11/19/2016 omeprazole (PRILOSEC) 20 mg Oral Capsule, Delayed Release(E.C.) Take 1 Cap by mouth daily for 20 days. 30 Cap 05/21/2016 06/10/2016 documented in this encounter Discharge Disposition Disposition Code Departure Means Destination Home or Self Mcfp documented in this encounter ED Notes * Bridget Yates RN - 05/21/2016 7:29 PM EDT Pt care and report handed off by MATT Case. * Kalie Sherman APRN - 05/21/2016 3:47 PM EDT CHIEF COMPLAINT Chief Complaint Patient presents with ??? Abdominal Pain Pt reports that she has had abdominal pain and leg swelling for several days. cpta none HPI Alyssa Jamil is a 61 y.o. female who presents to the emergency department for evaluation of lower abdominal pain with intermittent burning pains with urination for the past 2 days, states pain is worse today. Patient states she has intermittent pain to the right flank over the past week and states last episode of right flank pain was earlier today. Patient also reports a burning, heaviness, squeezing-type pain to midsternal chest that has an episodic in nature and occurred twice in the past 2 days, last episode of chest pain was last evening. She denies radiation of pain to her neck, shoulder or jaw and states felt that pain was going straight through to my back . She notes epigastric abdominal pain today that is burning and associated with nausea, no vomiting. Patient denies shortness of breath or cough. She denies any recent travel or known ill contacts. She denies history of kidney stones in the past. Patient denies any vaginal discharge or vaginal bleeding. She has not takenany medications for her discomfort today prior to arrival and rates her current pain as a 7 out of 10. REVIEW OF SYSTEMS See HPI for further details. Review of systems otherwise negative. PAST MEDICAL HISTORY Past Medical History Diagnosis Date ??? Anemia on iron ??? Arthritis all over ??? Asthma ??? Cancer (HCC) ??? Clotting disorder (HCC) ??? Diabetes mellitus (HCC) 2014 borderline ??? Heartburn nausea after eating ??? Hyperlipidemia ??? Hypertension ??? 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 Other and unspecified angina pectoris ??? Shortness of breath ??? Sleep apnea ??? Ulcer (HCC) FAMILY HISTORY Family History Problem Relation Age of Onset ??? Heart Disease Father ??? Cataracts Father ??? Diabetes Father ??? Cancer Maternal Grandmother ??? Colon Cancer Maternal Grandmother SOCIAL HISTORY Social History Social History ??? Marital status: Spouse name: N/A ??? Number of children: 2 ??? Years of education: N/A Occupational History ??? disabled Social History Main Topics ??? Smoking status: Former Smoker Packs/day: 1.50 Years: 12.00 Types: Cigarettes ??? Smokeless tobacco: Never Used Comment: quit 25 yrs ago ??? Alcohol use No ??? Drug use: No ??? Sexual activity: Yes Partners: Male control/ protection: Post-menopausal Other Topics Concern ??? None Social History Narrative SURGICAL HISTORY Past Surgical History Procedure Laterality Date ??? Colonoscopy ??? Upper gastrointestinal endoscopy ??? Upper gastrointestinal endoscopy 02/17/2013 Surgeon: Garett Holt MD; Location: [facility]; Service: ??? Colonoscopy 02/17/2013 Surgeon: Garett Holt MD; Location: [facility]; Service: ??? Cholecystectomy 1989 ??? Cardiac catheterization 04/2015 ??? Dental surgery upper and lower teeth removed CURRENT MEDICATIONS Current Facility-Administered Medications: ??? aspirin chewable tablet 243 mg, 243 mg, Oral, Once, Kalie Sherman APRN ??? sodium chloride 0.9% syringe 5-10 mL, 5-10 mL, Intravenous, PRN, Kalie Sherman APRN Current Outpatient Prescriptions: ??? Aspirin (ASPIRIN) 81 mg, Take 1 Tab by mouth daily., Disp: 100 Tab, Rfl: 4 ??? Blood-Glucose Meter Misc Kit, Please fill with what her ins will cover, Disp: 1 Kit, Rfl: 0 ??? carvedilol (COREG) 6.25 mg Oral Tablet, TAKE 1 TAB BY MOUTH 2 TIMES DAILY (WITH MEALS)., Disp: 60 Tab, Rfl: 1 ??? carvedilol (COREG) 6.25 mg Oral Tablet, Take 1 Tab by mouth 2 times daily. with meals, Disp: 60Tab, Rfl: 6 ??? DOK 100 mg Oral Capsule, TAKE 1 CAP BY MOUTH 2 TIMES DAILY FOR 30 DAYS., Disp: 60 Cap, Rfl: 2 ??? ergocalciferol (VITAMIN D) 50,000 unit Oral Capsule, Take 1 capsule by mouth once a week., Disp: 12 capsule, Rfl: 3 ??? iron polysaccharides (FERREX 150 FORTE PLUS) 150-60-25-1 [id number]-sg-[id number]-mg Oral Capsule, Take 1 capsule by mouth daily (with breakfast)., Disp: 30 capsule, Rfl: 5 ??? lisinopril (PRINIVIL;ZESTRIL) 10 mg Oral Tablet, Take 2 Tabs by mouth daily., Disp: 60 Tab, Rfl: 2 ??? metFORMIN (GLUCOPHAGE) 500 mg Oral Tablet, Take 1 Tab by mouth daily. with breakfast, Disp: 90 Tab, Rfl: 2 ??? naproxen sodium (ANAPROX) 550 mg Oral Tablet, Take 1 Tab by mouth 2 times daily as needed., Disp: 60 Tab, Rfl: 2 ??? polyethylene glycol (GLYCOLAX) 17 gram/dose Oral Powder, Take 17 g by mouth 2 times daily., Disp: 510 g, Rfl: 2 ??? simvastatin (ZOCOR) 10 mg Oral Tablet, Take 1 Tab by mouth every evening., Disp: 90 Tab, Rfl: 2 ??? amLODIPine (NORVASC) 10 mg Oral Tablet, TAKE 1 TAB BY MOUTH DAILY., Disp: 30 Tab, Rfl: 1 ??? DULoxetine (CYMBALTA) 30 mg Oral Capsule, Delayed Release(E.C.), Take 1 Cap by mouth daily., Disp: 30 Cap, Rfl: 2 ??? omeprazole (PRILOSEC) 20 mg Oral Capsule, Delayed Release(E.C.), Take 1 Cap by mouth 2 times daily (before meals). (Patient not taking: Reported on 05/21/2016), Disp: 180 Tab, Rfl: 1 ??? ondansetron (ZOFRAN ODT) 4 mg disintegrating tablet, Take 1 Tab by mouth every 6 hours as needed for Nausea for up to 10 doses. (Patient not taking: Reported on 05/21/2016), Disp: 10 Tab, Rfl: 0 ALLERGIES Allergies Allergen Reactions ??? Nexium [Esomeprazole Magnesium] Hives and Rash Blisters in Mouth PHYSICAL EXAM VITAL SIGNS: Visit Vitals ??? BP 123/65 (BP Location: Right arm, Patient Position: Sitting) ??? Pulse 65 ??? Temp 98.1 ??F (36.7 ??C) (Oral) ??? Resp 16 ??? Ht 5' 4 (1.626 m) ??? Wt 260 lb (117.9 kg) ??? SpO2 95% ??? BMI 44.63 kg/m2 Constitutional: Well developed, Well nourished, No acute distress, Non-toxic appearance. Pleasant female HENT: Normocephalic, Atraumatic, Bilateral external ears normal, Oropharynx moist, No oral exudates, Nose normal. Eyes: PERRLA, EOMI, Conjunctiva normal, No discharge. Neck: Normal range of motion, No tenderness, Supple, No stridor. Lymphatic: No lymphadenopathy noted. Cardiovascular: Apical pulse 56 bpm, Normal rhythm, No murmurs, No rubs, No gallops. Thorax & Lungs: Normal breath sounds, No respiratory distress, No wheezing, No chest tenderness. Abdomen: Bowel sounds normal, Soft, No tenderness, No masses, No pulsatile masses. Skin: Warm, [...] or performed during the hospital encounter of 05/21/16 XR CHEST AP PORTABLE Narrative XR CHEST AP PORTABLE 05/21/2016 5:35 PM HISTORY: -chest pain. COMPARE: 04/02/2014. Heart size upper normal. Lungs are clear. No infiltrate, fluid, or failure identified. Impression Impression: No acute disease identified. URINALYSIS Result Value Ref Range UA Color Yellow UA Appear Clear Clear UA Glucose Negative Negative UA Ketones Negative Negative UA Blood Small (A) Negative UA pH 6.0 5.0 - 8.0 UA Protein Negative Negative UA Urobilinogen 0.2 E.U./dL <=1 E.U./dL UA Nitrite Negative Negative UA Leuk Est Trace (A) Negative UA Spec Grav 1.020 1.001 - 1.035 UA WBC 3-5 0 - 4 /HPF UA RBC 0-2 0 - 3 /HPF UA Squam Epi 3+ UA Mucus Trace UA Bacteria 3+ NT PROBNP Result Value Ref Range NT Pro-BNP 154 <=319 pg/mL CBC WITH AUTO DIFF Result Value Ref Range WBC 10.7 4.0 - 11.0 x10(3)/mcL RBC 4.28 3.80 - 5.10 x10(6)/mcL Hgb 11.6 (L) 12.0 - 15.6 gm/dL Hct 36.0 35.7 - 45.9 % MCV 84.1 82.5 - 99.8 fL MCH 27.0 27.0 - 34.3 pg MCHC 32.2 32.1 - 35.3 gm/dL RDW 14.5 11.5 - 15.0 % Platelet 246 144 - 423 x10(3)/mcL MPV 8.6 6.8 - 10.8 fL BASIC METABOLIC PANEL Result Value Ref Range Sodium 138 136 - 145 mmol/L Potassium 4.5 3.5 - 5.0 mmol/L Chloride 101 98 - 107 mmol/L Total CO2 26 22 - 29 mmol/L Anion Gap 11 7 - 16 mmol/L Calcium 9.7 8.8 - 10.2 mg/dL Glucose Lvl 95 82 - 100 mg/dL BUN 14 8 - 23 mg/dL Creatinine 0.66 0.51 - 1.30 mg/dL GFR Afr Am >60 GFR Non Afr Am >60 TROPONIN-T Result Value Ref Range Troponin-T <0.01 <=0.00 ng/mL TROPONIN-T Result Value Ref Range Troponin-T <0.01 <=0.00 ng/mL DIFFERENTIAL Result Value Ref Range Neut Percent 65.9 % Lymph Percent 21.0 % Tillman Percent 8.6 % Eos Percent 3.1 % Baso Percent 1.4 % Neut# 7.1 1.8 - 7.7 x10(3)/mcL Lymph# 2.2 0.6 - 4.8 x10(3)/mcL Tillman# 0.9 0.0 - 1.3 x10(3)/mcL Eos# 0.3 0.0 - 0.5 x10(3)/mcL Baso# 0.1 0.0 - 0.2 x10(3)/mcL EK EKG 12 LEAD Impression Stationary ECG Study [facility] Interpretive Statements SINUS BRADYCARDIA WITH SINUS ARRHYTHMIA LOW QRS VOLTAGE IN PRECORDIAL LEADS no old ekg's for comparison Electronically Signed On 05-21-2016 20:54:27 EDT by Naeem Jean-Baptiste MD Urine culture pending COURSE & MEDICAL DECISION MAKING Pertinent Labs & Imaging studies reviewed. (See chart for details) 2039 patient presents to the emergency department for above complaints. Patient has had no chest pain since being here and epigastric discomfort resolved after GI cocktail given. Patient was given a single [place]ia[place] tablet for acute pain here and states suprapubic pain has resolved and has noted right flank pain since being here which improved after W[place]iawa. Patient declines pelvic examination today. Prior charts reviewed and patient have outpatient pelvic ultrasound in March of this year that showed thickened endometrial stripe and states she is planning to follow up with Dr. Giron for further evaluation and does not want pelvic exam today. Urinalysis shows no nitrites or leukocytes, does show 3+ bacteria and trace hematuria, will obtain urine culture and patient agreeable to hold off on antibiotics at this time until urine culture has resulted. Patient has had 2 troponin tests here which have both been negative and suspect her episodic chest pains are likely GI in etiology. CBC and BMP unremarkable. Given patient's intermittent right flank pain and suprapubic pain, think it is possible she may be passing a small kidney stone, clinical suspicion for obstructing stone is quite low and patient agrees to symptomatic, supportive treatment at time. Patient was instructed to drink plenty of water, to rest, to start Prilosec and take as prescribed, [place] as prescribed for more severe pain, she was instructed to use [place] sparingly and not to drive, operate machinery, sign legal documents or drink alcohol while taking this medication and to return for increased pain, shortness of breath, trouble breathing, repeated vomiting, fever or new or worsening concerns. Recommended recheck with primary care provider in 2-3 days. Patient verbalized understanding of these instructions and agreement with this plan. FINAL IMPRESSION 1. Atypical chest pain 2. Hematuria 3. Abdominal pain, unspecified abdominal location Patient discharged home in stable condition, improved This chart was completed using voice recognition technology and may contain unintended errors Kalie Sherman APRN 05/27/16 0046 Cosigned by Dedrick Garcia MD at 05/31/2016 12:00 AM EDT Associated attestation - Dedrick Garcia MD - 05/31/2016 12:00 AM EDT This chart was completed using voice recognition technology and may contain unintended errors documented in this encounter Plan of Treatment Upcoming Encounters Date Type Department Care Team (Late st Contact Info) Description 07/29/2024 9:00 AM EST Appointment [facility] [address] [place], [place] [id number] Jomar Kim MD [address] [place] [address] documented as of this encounter Procedures Procedure Name Priority Date/Time Associated Diagnosis Comments TROPONIN-T STAT 05/21/2016 8:02 PM EDT TROPONIN-T STAT 05/21/2016 6:02 PM EDT DIFFERENTIAL STAT 05/21/2016 6:02 PM EDT CBC WITH DIFF STAT 05/21/2016 6:02 PM EDT NT PROBNP STAT 05/21/2016 6:02 PM EDT BASIC METABOLIC PANEL STAT 05/21/2016 6:02 PM EDT XR CHEST AP PORTABLE JORGE LUIS 05/21/2016 5:35 PM EDT URINALYSIS STAT 05/21/2016 5:28 PM EDT URINE CULTURE (NO STAIN) STAT 05/21/2016 5:28 PM EDT EK EKG 12 LEAD STAT 05/21/2016 5:27 PM EDT SALINE LOCK IV STAT 05/21/2016 5:19 PM EDT documented in this encounter Results * TROPONIN-T (05/21/2016 8:02 PM EDT) Pathologist [facility] Troponin-T <0.01 <=0.00 ng/mL [facility] Comment: Values > or = 0.01 ng/mL have been shown to have prognostic value. Blood specimen (specimen) 05/21/2016 8:02 PM EDT 05/21/2016 8:13 PM EDT Kalie Sherman WOOD HEEL FITTER MACHINE CHEMISTRY ORDERABLES Final Res ult [facility] [address] [id number] * DIFFERENTIAL (05/21/2016 6:02 PM EDT) Neut Percent 65.9 % [facility] NT [facility] Lymph Percent 21.0 % [facility] ANT [facility] Tillman Percent 8.6 % [facility] NT [facility] Eos Percent 3.1 % [facility] T [facility] Baso Percent 1.4 % [facility] Neut# 7.1 1.8 - 7.7 x10(3)/[facility] Lymph# 2.2 0.6 - 4.8 x10(3)/[facility] Tillman# 0.9 0.0 - 1.3 x10(3)/[facility] Eos# 0.3 0.0 - 0.5 x10(3)/[facility] Baso# 0.1 0.0 - 0.2 x10(3)/[facility] Blood specimen (specimen) 05/21/2016 6:02 PM EDT 05/21/2016 6:10 PM EDT us Kalie Sherman APRN HEMATOLOGY ORDERABLES Final Re sult Performing Organization Address [facility] Co de Phone Number [facility] [address] [place] [address] * TROPONIN-T (05/21/2016 6:02 PM EDT) Pathologist [facility] Troponin-T <0.01 <=0.00 ng/mL [facility] Comment: Values > or = 0.01 ng/mL have been shown to have prognostic value. Blood specimen (specimen) 05/21/2016 6:02 PM EDT 05/21/2016 6:10 PM EDT us Kalie Sherman APRN CHEMISTRY ORDERABLES Final Res ult Performing Organization Address [facility] de Phone Number [facility] [address] [place] [address] * BASIC METABOLIC PANEL (05/21/2016 6:02 PM EDT) Pathologist [facility] Sodium 138 136 - 145 mmol/L [facility] Potassium 4.5 3.5 - 5.0 mmol/L [facility] Chloride 101 98 - 107 mmol/L [facility] Total CO2 26 22 - 29 mmol/L [facility] Anion Gap 11 7 - 16 mmol/L [facility] Calcium 9.7 8.8 - 10.2 mg/dL [facility] Glucose Lvl 95 82 - 100 mg/dL [facility] BUN 14 8 - 23 mg/dL [facility] Creatinine 0.66 0.51 - 1.30 mg/dL [facility] GFR Afr Am >60 [facility] GFR Non Afr Am >60 [facility] Blood specimen (specimen) UPPER LIMB STRUCTURE / Unknown 05/21/2016 6:02 PM EDT 05/21/2016 6:10 PM EDT us Kalie Sherman WOOD HEEL FITTER MACHINE CHEMISTRY ORDERABLES Edited Re sult - Final Performing Organization Address [facility] Co de Phone Number [facility] [address] [place] [address] * (ABNORMAL) CBC WITH AUTO DIFF (05/21/2016 6:02 PM EDT) WBC 10.7 4.0 - 11.0 x10(3)/[facility] RBC 4.28 3.80 - 5.10 x10(6)/[facility] Hgb 11.6(L) 12.0 - 15.6 gm/dL [facility] Hct 36.0 35.7 - 45.9 % [facility] MCV 84.1 82.5 - 99.8 fL [facility] MCH 27.0 27.0 - 34.3 pg [facility] MCHC 32.2 32.1 - 35.3 gm/dL [facility] RDW 14.5 11.5 - 15.0 % [facility] Platelet 246 144 - 423 x10(3)/[facility] MPV 8.6 6.8 - 10.8 fL [facility] Blood specimen (specimen) UPPER LIMB STRUCTURE / Unknown 05/21/2016 6:02 PM EDT 05/21/2016 6:10 PM EDT Kalie Sherman WOOD HEEL FITTER MACHINE HEMATOLOGY ORDERABLES Final Re sult Performing Organization Address [facility] Co de Phone Number [facility] [address] [place] [address] * NT PROBNP (05/21/2016 6:02 PM EDT) NT Pro-BNP 154 <=319 pg/mL [facility] Comment: An NT pro-BNP level less than 300 pg/mL in any patient, regardless of age, Effectively rules out acute CHF with a 99% negative predictive value. Blood specimen (specimen) UPPER LIMB STRUCTURE / Unknown 05/21/2016 6:02 PM EDT 05/21/2016 6:10 PM EDT us Kalie Sherman WOOD HEEL FITTER MACHINE CHEMISTRY ORDERABLES Final Res ult [facility] [address] [place] [address] * XR CHEST AP PORTABLE (05/21/2016 5:35 PM EDT) Anatomical Region Laterality Modality Chest Radiographic Faby ging 05/21/2016 5:35 PM EDT Impressions 05/21/2016 6:00 PM EDT Impression: No acute disease identified. Narrative 05/21/2016 6:00 PM EDT XR CHEST AP PORTABLE ?? 05/21/2016 5:35 PM HISTORY: ??-chest pain. ?? COMPARE: 04/02/2014. Heart size upper normal. Lungs are clear. ??No infiltrate, fluid, or failure identified. Procedure Note Heriberto Ritter MD - 05/21/2016 XR CHEST AP PORTABLE 05/21/2016 5:35 PM HISTORY: -chest pain. COMPARE: 04/02/2014. Heart size upper normal. Lungs are clear. No infiltrate, fluid, orfailure identified. IMPRESSION Impression: No acute disease identified. us Kalie Sherman APRN IMG DIAGNOSTIC IMAGING ORDERAB LES Final Result * URINE CULTURE (05/21/2016 5:28 PM EDT) Final >100,000 cfu/ml Escherichia coli >100,000 cfu/ml Streptococcus agalactiae (Group B) >100,000 cfu/ml Streptococcus gallolyticus Significance of polymicrobic urine culture results are inconclusive in an elderly patient. ??If further workup is clinically indicated, call Micro ([phone]) within one week. [facility] Urine specimen (specimen) URINE SPECIMEN COLLECTION, CLEAN CATCH / Unknown 05/21/2016 5:28 PM EDT 05/22/2016 10:01 AM EDT us Kalie Sherman APRN MICROBIOLOGY - GENERAL ORDERAB LES Final Result Performing Organization Address City/[facility]/ZIP Co de Phone Number [facility] [address] [place] [phone] * (ABNORMAL) URINALYSIS (05/21/2016 5:28 PM EDT) UA Color Yellow [facility] UA Appear Clear Clear [facility] UA Glucose Negative Negative [facility] UA Ketones Negative Negative [facility] UA Blood Small(A) Negative [facility] UA pH 6.0 5.0 - 8.0 [facility] Comment:Reference range dano d for random specimens only. UA Protein Negative Negative [facility] UA Urobilinogen 0.2 E.U./dL <=1 E.U./dL [facility] UA Nitrite Negative Negative [facility] UA Leuk Est Trace(A) Negative [facility] UA Spec Grav 1.020 1.001 - 1.035 [facility] Comment:Reference range dano d for random specimens only. UA WBC 3-5 0 - 4 /HPF [facility] UA RBC 0-2 0 - 3 /HPF [facility] UA Squam Epi 3+ [facility] UA Mucus Trace [facility] UA Bacteria 3+ [facility] Urine specimen (specimen) URINE SPECIMEN COLLECTION, CLEAN CATCH / Unknown 05/21/2016 5:28 PM EDT 05/21/2016 5:28 PM EDT Kalie Sherman WOOD HEEL FITTER MACHINE URINE ORDERABLES Final Result [facility] [address] [place] [address] * EK EKG 12 LEAD (05/21/2016 5:27 PM EDT) Anatomical Region Laterality Modality Other 05/21/2016 5:27 PM EDT Impressions 05/21/2016 8:54 PM EDT ? Stationary ECG Study [facility] ? Interpretive Statements ? SINUS BRADYCARDIA WITH SINUS ARRHYTHMIA LOW QRS VOLTAGE IN PRECORDIAL LEADS no old ekg's for comparison Electronically Signed On 05-21-2016 20:54:27 EDT by Naeem Jean-Baptiste MD Narrative Procedure Note Naeem Jean-Baptiste MD - 05/21/2016 IMPRESSION Stationary ECG Study [employer] [facility] Interpretive Statements SINUS BRADYCARDIA WITH SINUS ARRHYTHMIA LOW QRS VOLTAGE IN PRECORDIAL LEADS no old ekg's for comparison Electronically Signed On 05-21-2016 20:54:27 EDT by Naeem Jean-Baptiste MD Kalie Sherman APRN IMG ECG ORDERABLES Final Resul t documented in this encounter Visit Diagnoses Diagnosis Atypical chest pain- Primary Other chest pain Hematuria Hematuria, unspecified Abdominal pain, unspecified abdominal location documented in this encounter Administered Medications Inactive Administered Medications - up to 1 most recent administrations Medication Order MAR Action Action Date Dose Rate Site aspirin chewable tablet 243 mg 243 mg, Oral, ONCE, 1 dose, On Fri05/21/16 at 1730 Given 05/21/2016 5:34 PM EDT 243 mg gi cocktail suspension 60 mL 60 mL, Oral, ONCE, 1 dose, On Fri05/21/16 at 1945 Given 05/21/2016 7:51 PM EDT 60 mL HYDROcodone-acetaminophen (NORCO) 5-325 mg per tablet 1 Tab 1 Tablet, Oral, ONCE, 1 dose, On Fri05/21/16 at 1845, Maximum adult dose of acetaminophen is 4000 mg from all sources in 24 hours. Given 05/21/2016 6:41 PM EDT 1 Tablet sodium chloride 0.9% syringe 5-10 mL 5-10 mL, Intravenous, PRN, Starting on Fri05/21/16 at 1717, Until Fri05/22/16 at 0119, Line Care, Flush with 5-10 mL saline pre/post IVP, and 5 mL prior to IVPB administration. documented in this encounter Discontinued Medications Medication Sig Discontinue Reason Start Date End Da te omeprazole (PRILOSEC) 20 mg Oral Capsule, Delayed Release(E.C.)Indication s:GERD (gastroesophageal reflux disease) Take 1 Cap by mouth 2 times daily (before meals). DELETE-Therapy completed 08/19/2014 05/21/2016 documented as of this encounter Active and Recently Administered Medications Times are shown in EDT. Scheduled Medication Order 05/19/2016 05/20/2016 05/21/2016 aspirin chewable tablet 243 mg (COMPLETED) 243 mg, Oral, ONCE, 1 dose, On Fri05/21/16 at 1730 1734 (Given - Provid er: Ran Barry RN) gi cocktail suspension 60 mL (COMPLETED) 60 mL, Oral, ONCE, 1 dose, On Fri05/21/16 at 1945 1951 (Given - Provid er: Bridget Yates RN) HYDROcodone-acetaminophen (NORCO) 5-325 mg per tablet 1 Tab (COMPLETED) 1 Tablet, Oral, ONCE, 1 dose, On Fri05/21/16 at 1845, Maximum adult dose of acetaminophen is 4000 mg from all sources in 24 hours. 1841 (Given - Provid er: Heriberto Patel RN) PRN Medication Order 05/19/2016 05/20/2016 05/21/2016 sodium chloride 0.9% syringe 5-10 mL 5-10 mL, Intravenous, PRN, Starting on Fri05/21/16 at 1717, Until Fri05/22/16 at 0119, Line Care, Flush with 5-10 mL saline pre/post IVP, and 5 mL prior to IVPB administration. documented in this encounter Orders Medications Ordered That Edwin ht Not Have Been Administered Count Last Ordered Date First Ordered Date sodium chloride 0.9% syringe 5-10 mL 05/09 Nursing Count Last Ordered Date First Orde red Date CARDIAC MONITORING 1 05/21/2016 PULSE OX 1 05/21/2016 IV Count Last Ordered Date First Orde red Date SALINE LOCK IV 1 05/21/2016 documented in this encounter Care Teams Customer Care Coordinator Relationship Specialty Start Date End Date Cristiane Shirley MD [address] [place] [address] PCP - General Family Medicine 12/28/14 11/18/16 Garett Holt MD Internal Medicine-Gastroenterology 12/22/12 Ruiz Stokes MD [address] [place] [address] Internal Medicine-Cardiovascular Disease 07/25/14 documented as of this encounter
--- OUTSIDE RECORDS SUMMARY | 2024-07-22 16:16 | XMS_ITS | Encounter Summary ---
Author Organization [place] [address] Care Team Providers Care Software Designer Name Role Phone Garett Holt MD Unavailable [phone] Ruiz Stokes MD Unavailable [phone] Cristiane Shirley MD Primary Care Provider [phone] Reason for Visit * Reason Comments Medication Refill Encounter Details Date Type Department Care Team (Late st Contact Info) Description 04/05/2016 Refill [facility] [address] [place] [phone] Cristiane Shirley MD [address] [place] [address] Medication Refill Social History Tobacco Use Types [...] End Date DOK 100 mg Oral Capsule TAKE 1 CAP BY MOUTH 2 TIMES DAILY FOR 30 DAYS. 60 Cap 2 04/05/2016 06/05/2016 documented in this encounter Plan of Treatment Upcoming Encounters Date Type Department Care Team (Late st Contact Info) Description 07/29/2024 9:00 AM EST Appointment [facility] [address] [place] [address] Jomar Kim MD [address] [place] [address] documented as of this encounter Visit Diagnoses Not on filedocumented in this encounter Discontinued Medications Medication Sig Discontinue Reason Start Date End Da te docusate sodium (COLACE) 100 mg Oral Capsule Take 1 Cap by mouth 2 times daily for 30 days. Reorder 11/15/2015 04/05/2016 documented as of this encounter Care Teams Software Designer Relationship Specialty Start Date End Date Cristiane Shirley MD [address] [place] [address] PCP - General Family Medicine 12/28/14 11/18/16 Garett Holt MD Internal Medicine-Gastroenterology 12/22/12 Ruiz Stokes MD [address] [place] [address] Internal Medicine-Cardiovascular Disease 07/25/14 documented as of this encounter
--- OUTSIDE RECORDS SUMMARY | 2024-07-22 16:16 | XMS_ITS | Encounter Summary ---
Author Organization [place] [address] Care Team Providers Care Application Support Consultant Name Role Phone Garett Holt MD Unavailable [phone] Ruiz Stokes MD Unavailable [phone] Cristiane Shirley MD Primary Care Provider [phone] Reason for Visit * Reason Comments Gynecologic Exam * Consultation (Routine) - Closed Specialty Diagnoses / Procedures Referred By Ron bansal Referred To Contact Obstetrics and Gynecology Diagnoses History of endometrial cancer Vaginal pain Cristiane Shirley MD Phone: tel: fax: Gianni Giron MD [address] [facility] [address] [place] [address] Phone: tel: fax: Referral ID Status Reason Start Date Expiration Date V isits Requested Visits Authorized [id number] Closed Specialty Services Required 11/15/2015 11/14/2016 99 99 Encounter Details Date Type Department Care Team (Late st Contact Info) Description 11/29/2015 2:20 PM EDT Office Visit [facility] [address] [place] [phone] Gianni Giron MD [address] [place] [id number] Labial lesion (Primary Dx) Social History Tobacco [...] Reading Time Taken Comments Blood Pressure 124/82 11/29/2015 2:41 PM EDT Pulse - - Temperature - - Respiratory Rate - - Oxygen Saturation - - Inhaled Oxygen Concentration - - Weight 116.6 kg (257 lb) 11/29/2015 2:41 PM EDT Height 162.6 cm (5' 4 ) 11/29/2015 2:41 PM EDT Body Mass Index 44.11 11/29/2015 2:41 PM EDT documented in this encounter Progress Notes * Gianni Giron MD - 12/02/2015 1:26 PM EDT [facility] Subjective: Alyssa Jamil is a(n)60 y.o. female who comes to the office today for inspection of vaginal bumps. They cause discomfort when urinating. Ms. Jamil had endometrial hyperplasia last year In March for thickened endometrium and irregular bleeding. She was treated by a doctor in [place] with surgery. Ms. Jamil reports that the doctor got it all and no further follow up is planned. No records present. ROS were all negative except those mentioned in the HPI Objective: Filed Vitals: 11/29/15 1441 BP: 124/82 PE: Labia: Small lesion about 3 to 4 mm present on left labia majora very anteriorly. It is light in color, thick to feel. No pain or evidence of infection. Assessment: Labial lesion. Biopsy indicated. Plan: Return for removal. Will likely be able to remove with local anesthesia and punch biopsy. * Yas Conde CCMA - 11/29/2015 2:[address] Shirley needs to be seen about bleeding and some bumps that are on her vagina that is making urination hard due to burning. documented in this encounter Plan of Treatment Upcoming Encounters Date Type Department Care Team (Late st Contact Info) Description 07/29/2024 9:00 AM EST Appointment [facility] [address] [place] [address] Jomar Kim MD [address] [place] [address] Scheduled Referrals Name Type Priority Associated Diagnoses Orde r Schedule AMB REFERRAL TO OB-OPERATIONAL INTELLIGENCE ANALYST Outpatient Referral Routine History of endometrial cancer Vaginal pain Ordered: 11/15/2015 documented as of this encounter Visit Diagnoses Diagnosis Labial lesion- Primary Other specified noninflammatory disorder of vulva and perineum documented in this encounter Care Teams Application Support Consultant Relationship Specialty Start Date End Date Cristiane Shirley MD [address] [place] [address] PCP - General Family Medicine 12/28/14 11/18/16 Garett Holt MD Internal Medicine-Gastroenterology 12/22/12 Ruiz Stokes MD [address] [place] [address] Internal Medicine-Cardiovascular Disease 07/25/14 documented as of this encounter
--- OUTSIDE RECORDS SUMMARY | 2024-07-22 16:16 | XMS_ITS | Encounter Summary ---
Author Organization [place] [address] Care Team Providers Care Pharmacy Clinical Specialist Name Role Phone Garett Holt MD Unavailable [phone] Ruiz Stokes MD Unavailable [phone] Cristiane Shirley MD Primary Care Provider [phone] Encounter Details Date Type Department Care Team (Latest Contact Info) Description 04/10/2015 7:40 AM EDT - 04/10/2015 11:59 PM EDT Hospital Encounter [facility] [address] [facility] [place] [address] Chest pain, unspecified chest pain type; Acute coronary syndrome (HCC); Gastroesophageal reflux disease with esophagitis; Osteoarthrosis, unspecified whether generalized or localized, unspecified site; Type 2 diabetes mellitus without complication (HCC); Dysphagia; Encounter for screening colonoscopy; Leg pain, right; SOB (shortness of breath); Chest discomfort; DDD (degenerative disc disease), lumbosacral; HAMIDA (obstructive sleep apnea); Endometrial hyperplasia Discharge Disposition: Home or Self Care Social History Tobacco Use Types Packs/Day Years Used Date Smoking Tobacco: Former Smokeless Tobacco: Never Alcohol Use Standard Drinks/Week [...] 9:00 AM EST Appointment [facility] [address] [place] [address] Jomar Kim MD [address] [place] [address] Scheduled Orders Name Type Priority Associated Diagnoses Orde r Schedule OP VENIPUNCTURE CHARGE Lab Timed Chest pain, unspecified chest pain type Acute coronary syndrome (HCC) Gastroesophageal reflux disease with esophagitis Osteoarthrosis, unspecified whether generalized or localized, unspecified site Type 2 diabetes mellitus without complication (HCC) Dysphagia Encounter for screening colonoscopy Leg pain, right SOB (shortness of breath) Chest discomfort DDD (degenerative disc disease), lumbosacral HAMIDA (obstructive sleep apnea) Endometrial hyperplasia One Time for 1 Occurrences starting 04/10/2015 until 04/10/2015 documented as of this encounter Procedures Procedure Name Priority Date/Time Associated Diagnosis Comments CBC Routine 04/10/2015 7:46 AM EDT Chest pain, unspecified chest pain type Acute coronary syndrome (HCC) Gastroesophageal reflux disease with esophagitis Osteoarthrosis, unspecified whether generalized or localized, unspecified site Type 2 diabetes mellitus without complication (HCC) Dysphagia Encounter for screening colonoscopy Leg pain, right SOB (shortness of breath) Chest discomfort DDD (degenerative disc disease), lumbosacral HAMIDA (obstructive sleep apnea) Endometrial hyperplasia COMPREHENSIVE METABOLIC PANEL Routine 04/10/2015 7:46 AM EDT Chest pain, unspecified chest pain type Acute coronary syndrome (HCC) Gastroesophageal reflux disease with esophagitis Osteoarthrosis, unspecified whether generalized or localized, unspecified site Type 2 diabetes mellitus without complication (HCC) Dysphagia Encounter for screening colonoscopy Leg pain, right SOB (shortness of breath) Chest discomfort DDD (degenerative disc disease), lumbosacral HAMIDA (obstructive sleep apnea) Endometrial hyperplasia documented in this encounter Results * (ABNORMAL) COMPREHENSIVE METABOLIC PANEL (04/10/2015 7:46 AM EDT) Sodium 141 136 - 145 mmol/L [facility] Potassium 4.4 3.5 - 5.0 mmol/L [facility] Chloride 101 98 - 107 mmol/L [facility] Total CO2 28 22 - 29 mmol/L [facility] Anion Gap 12 7 - 16 mmol/L [facility] Calcium 10.0 8.6 - 10.2 mg/dL [facility] Glucose Lvl 109(H) 74 - 100 mg/dL [facility] BUN 18 6 - 20 mg/dL [facility] Creatinine 0.80 0.51 - 1.30 mg/dL [facility] Albumin 4.1 3.5 - 5.2 gm/dL [facility] Total Protein 7.7 6.4 - 8.3 gm/dL [facility] Bili Total 0.2 0.1 - 1.3 mg/dL [facility] AST 15 <=40 IU/L [facility] ALT 19 <=41 IU/L [facility] Alk Phos 70 35 - 104 IU/L [facility] GFR Afr Am >60 [facility] GFR Non Afr Am >60 [facility] Blood specimen (specimen) UPPER LIMB STRUCTURE / Unknown 04/10/2015 7:46 AM EDT 04/10/2015 7:46 AM EDT Ruiz Stokes MD CHEMISTRY ORDERABLES Edite d Result - Final [facility] [address] [place] [address] * (ABNORMAL) CBC (04/10/2015 7:46 AM EDT) WBC 8.3 4.0 - 11.0 x10(3)/mcL [facility] RBC 4.14 3.80 - 5.10 x10(6)/mcL [facility] Hgb 11.6(L) 12.0 - 15.6 gm/dL [facility] Hct 35.8 35.7 - 45.9 % [facility] MCV 86.4 82.5 - 99.8 fL [facility] MCH 27.9 27.0 - 34.3 pg [facility] MCHC 32.3 32.1 - 35.3 gm/dL [facility] RDW 14.3 11.5 - 15.0 % [facility] Platelet 220 144 - 423 x10(3)/mcL [facility] MPV 7.7 6.8 - 10.8 fL [facility] Blood specimen (specimen) UPPER LIMB STRUCTURE / Unknown 04/10/2015 7:46 AM EDT 04/10/2015 7:46 AM EDT Ruiz Stokes MD HEMATOLOGY ORDERABLES Mercedes l Result [facility] [address] [place] [address] documented in this encounter Visit Diagnoses Diagnosis Chest pain, unspecified chest pain type Acute coronary syndrome (HCC) Intermediate coronary syndrome Gastroesophageal reflux disease with esophagitis Osteoarthrosis, unspecified whether generalized or localized, unspecified site Type 2 diabetes mellitus without complication (HCC) Dysphagia Dysphagia, unspecified Encounter for screening colonoscopy Special screening for malignant neoplasms, colon Leg pain, right Pain in limb SOB (shortness of breath) Shortness of breath Chest discomfort Other chest pain DDD (degenerative disc disease), lumbosacral Degeneration of lumbar or lumbosacral intervertebral disc HAMIDA (obstructive sleep apnea) Obstructive sleep apnea (adult) (pediatric) Endometrial hyperplasia Endometrial hyperplasia, unspecified documented in this encounter Care Teams Pharmacy Clinical Specialist Relationship Specialty Start Date End Date Cristiane Shirley MD [address] [place] [address] PCP - General Family Medicine 12/28/14 11/18/16 Garett Holt MD Internal Medicine-Gastroenterology 12/22/12 Ruiz Stokes MD [address] [place] [address] Internal Medicine-Cardiovascular Disease 07/25/14 documented as of this encounter
--- OUTSIDE RECORDS SUMMARY | 2024-07-22 16:16 | XMS_ITS | Encounter Summary ---
Author Organization [place] [address] Care Team Providers Care Satellite Technician Name Role Phone Garett Holt MD Unavailable [phone] Ruiz Stokes MD Unavailable [phone] Cristiane Shirley MD Primary Care Provider [phone] Reason for Visit * Reason Comments Abdominal Pain Had hysteroscopy wit h D&C Friday, now c/o abd pain with constipation. Currently on pain medication Encounter Details Date Type Department Care Team (Late st Contact Info) Description 08/03/2015 7:40 PM EST - 08/03/2015 10:05 PM EST Emergency [facility] [address] [facility] [place] [address] Archana Ly MD [address] [place] [address] [place] [address] Constipation, unspecified constipation type (Primary Dx); Pain of left lower extremity Discharge Disposition: Home or Self Care Social [...] Sign Reading Time Taken Comments Blood Pressure 109/61 08/03/2015 7:49 PM EST Pulse 77 08/03/2015 7:49 PM EST Temperature 36.4 ??C (97.5 ??F) 08/03/2015 7:49 PM ES T Respiratory Rate 18 08/03/2015 7:49 PM EST Oxygen Saturation 95% 08/03/2015 7:49 PM EST Inhaled Oxygen Concentration - - Weight 120.2 kg (265 lb) 08/03/2015 7:49 PM EST Height 162.6 cm (5' 4 ) 08/03/2015 7:49 PM EST Body Mass Index 45.49 08/03/2015 7:49 PM EST documented in this encounter Discharge Instructions * Attachments The following attachments cannot be sent through Care Everywhere. * CONSTIPATION, ADULT (GREEK) documented in this encounter Ordered Prescriptions Prescription Sig Dispense Quantity Refills Last Filled Start Date End Date docusate sodium (COLACE) 100 mg Oral Capsule Take 1 Cap by mouth 2 times daily for 30 days. 60 Cap 0 08/03/2015 11/15/2015 documented in this encounter Discharge Disposition Disposition Code Departure Means Destination Home or Self Snf documented in this encounter ED Notes * Archana Ly MD - 08/03/2015 9:08 PM EST Chief Complaint Patient presents with ??? Abdominal Pain Had hysteroscopy with D&C Friday, now c/o abd pain with constipation. Currently on pain medication HPI Comments: 60-year-old female with a history of GERD, diabetes, chronic left leg and hip pain, walks with a cane, ventral hernia, hiatal hernia, status post hysteroscopy 2 days ago. She presents to the emergency department with several complaints. She says since the hysteroscopy she has had increased left hip and leg pain and occasional numbness in her leg. She also complains of constipation. She has been prescribed Vicodin procedure. Last bowel movement was 3 days ago. No vomiting. No fever. No flank pain. No dysuria. No hematuria. No change in caliber of her stool. She has had problems with constipation in the past but she says not to this extent. Records reviewed The history is provided by the patient. Allergies Allergen Reactions ??? Nexium [Esomeprazole Magnesium] Hives and Rash Blisters in Mouth ??? No Known Allergies Home Medications: Prior to Admission medications Medication Sig Start Date End Date Taking? Authorizing Provider carvedilol (COREG) 6.25 mg Oral Tablet Take 1 Tab by mouth 2 times daily (with meals). 05/08/15 Ruiz Stokes MD metFORMIN (GLUCOPHAGE) 500 mg Oral Tablet Take 1 Tab by mouth daily (with breakfast). 03/15/15 Cristiane Shirley MD simvastatin (ZOCOR) 10 mg Oral Tablet Take 1 Tab by mouth every evening. Patient taking differently: Take 20 mg by mouth every evening. 03/15/15 Cristiane Shirley MD lisinopril (PRINIVIL;ZESTRIL) 10 mg Oral Tablet Take 2 Tabs by mouth daily. 03/15/15 Cristiane Shirley MD DULoxetine (CYMBALTA) 30 mg Oral Capsule, Delayed Release(E.C.) Take 1 Cap by mouth daily. 12/28/14 Cristiane Shirley MD naproxen sodium (ANAPROX) 550 mg Oral Tablet Take 1 Tab by mouth 2 times daily as needed. 10/03/14 Annalise Oneill MD omeprazole (PRILOSEC) 20 mg Oral Capsule, Delayed Release(E.C.) Take 1 Cap by mouth 2 times daily (before meals). 08/19/14 Kate Bai, DO polyethylene glycol (GLYCOLAX) 17 gram/dose Oral Powder Take 17 g by mouth 2 times daily. 08/02/14 Rad Pang MD ergocalciferol (VITAMIN D) 50,000 unit Oral Capsule Take 1 capsule by mouth once a week. 05/31/14 Kate Bai, DO iron polysaccharides (FERREX 150 FORTE PLUS) 150-60-25-1 cj-rh-syg-mg Oral Capsule Take 1 capsule by mouth daily (with breakfast). 05/31/14 Kate Bai DO acetaminophen (TYLENOL) 500 mg Oral Tablet Take 2 tablets by mouth every 6 hours as needed for Pain. 05/31/14 Kate Bai, ondansetron (ZOFRAN ODT) 4 mg disintegrating tablet Take 1 Tab by mouth every 6 hours as needed forNausea for up to 10 doses. 04/02/14 Danie Terarzas MD Aspirin (ASPIRIN) 81 mg Take 1 Tab by mouth daily. 01/02/14 Chantell Hoang MD Past Medical History: Past Medical History Diagnosis Date ??? Shortness of breath ??? Asthma ??? Other and unspecified angina pectoris ??? Heartburn nausea after eating ??? Ulcer ??? Arthritis all over ??? 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 Anemia on iron ??? Sleep apnea ??? Hyperlipidemia ??? Hypertension ??? Diabetes mellitus (HCC) 2014 borderline ??? Clotting disorder (HCC) Social History: reports that she has quit smoking. Her smoking use included Cigarettes. She has a 18 pack-year smoking history. She has never used smokeless tobacco. She reports that she currently engages in sexual activity and has had male partners. She reports using the following method of c ontrol/protection: Post-menopausal. She reports that she does not drink alcohol or use illicit drugs. Family History: Family History Problem Relation Age of Onset ??? Heart Disease Father ??? Cataracts Father ??? Diabetes Father ??? Cancer Maternal Grandmother ??? Colon Cancer Maternal Grandmother Surgical History: Past Surgical History Procedure Laterality Date ??? Colonoscopy ??? Upper gastrointestinal endoscopy ??? Upper gastrointestinal endoscopy 02/17/2013 Surgeon: Garett Holt MD; Location: [facility]; Service: ??? Colonoscopy 02/17/2013 Surgeon: Garett Holt MD; Location: [facility]; Service: ??? Cholecystectomy 1989 ??? Cardiac catheterization 04/2015 ??? Dental surgery upper and lower teeth removed Review of Systems All other systems reviewed and are negative. Blood pressure 109/61, pulse 77, temperature 97.5 ??F (36.4 ??C), temperature source Oral, resp. rate 18, height 5' 4 (1.626 m), weight 265 lb (120.203 kg), SpO2 95 %. Physical Exam Nursing note and vitals reviewed. PHYSICAL EXAM: Vitals: Reviewed, see nursing chart Constitutional: No acute distress, Non-toxic appearance. HENT: Normocephalic, Atraumatic, Bilateral external ears normal, Oropharynx moist, No oral exudates, Nose normal. Eyes: PERRLA, EOMI, Conjunctiva normal, No discharge. Neck: Normal range of motion, No tenderness, Supple, No lymphadenopathy, No stridor. Cardiovascular: Normal heart rate, Normal rhythm, No murmurs, No rubs, No gallops. Pulmonary/Chest: Normal breath sounds, No respiratory distress, No wheezing, No chest tenderness. Abdomen: Bowel sounds normal, Soft, No tenderness, No masses, No pulsatile masses. Back: No tenderness, No CVA tenderness. Extremities: Normal range of motion, Intact distal pulses, No edema, No tenderness. No swelling, redness, or crepitus of the left hip. She is able to ambulate with the use of a cane. Lymphatic: No lymphadenopathy noted. Neurologic: Alert & oriented x 3, Normal motor function, Normal sensory function, No focal defecits. Skin: Warm, Dry, No erythema, No rash. Psychiatric: Affect normal, Judgement normal, Mood normal. Procedures Radiology/EKG/Labs: Results for orders placed or performed during the hospital encounter of 08/03/15 URINALYSIS Result Value Ref Range UA Color Yellow UA Appear Slightly Hazy (A) Clear UA Glucose Negative Negative UA Ketones Negative Negative UA Blood Large (A) Negative UA pH 6.0 5.0 - 8.0 UA Protein Negative Negative UA Urobilinogen 0.2 E.U./dL <=1 E.U./dL UA Nitrite Negative Negative UA Leuk Est Small (A) Negative UA Spec Grav 1.025 1.001 - 1.035 UA WBC 3-5 0 - 4 /HPF UA RBC 3-5 (A) 0 - 3 /HPF UA Squam Epi Rare UA Bacteria Trace CBC WITH AUTO DIFF Result Value Ref Range WBC 12.4 (H) 4.0 - 11.0 x10(3)/mcL RBC 4.05 3.80 - 5.10 x10(6)/mcL Hgb 11.1 (L) 12.0 - 15.6 gm/dL Hct 35.6 (L) 35.7 - 45.9 % MCV 87.9 82.5 - 99.8 fL MCH 27.4 27.0 - 34.3 pg MCHC 31.1 (L) 32.1 - 35.3 gm/dL RDW 14.7 11.5 - 15.0 % Platelet 260 144 - 423 x10(3)/mcL MPV 8.2 6.8 - 10.8 fL BASIC METABOLIC PANEL Result Value Ref Range Sodium 142 136 - 145 mmol/L Potassium 3.9 3.5 - 5.0 mmol/L Chloride 103 98 - 107 mmol/L Total CO2 27 22 - 29 mmol/L Anion Gap 12 7 - 16 mmol/L Calcium 9.8 8.6 - 10.2 mg/dL Glucose Lvl 113 (H) 74 - 100 mg/dL BUN 18 6 - 20 mg/dL Creatinine 0.70 0.51 - 1.30 mg/dL GFR Afr Am >60 GFR Non Afr Am >60 DIFFERENTIAL Result Value Ref Range Neut Percent 65.5 % Lymph Percent 21.9 % Pepin Percent 7.7 % Eos Percent 3.9 % Baso Percent 1.0 % Neut# 8.1 (H) 1.8 - 7.7 x10(3)/mcL Lymph# 2.7 0.6 - 4.8 x10(3)/mcL Pepin# 1.0 0.0 - 1.3 x10(3)/mcL Eos# 0.5 0.0 - 0.5 x10(3)/mcL Baso# 0.1 0.0 - 0.2 x10(3)/mcL ED Course: Appropriate laboratory and radiology studies reviewed Acute on chronic left hip and leg pain-Most likely exacerbated by positioning for hysteroscopy. Continue home medications as needed. Constipation-some history of chronic constipation but now much worse. Most likely opiate induced. She received magnesium citrate here in the ER. Discharged with prescription for Colace. Benign abdomen. No sign of bowel obstruction. ED Clinical Impression: Acute on chronic hip and leg pain Constipation Critical Care time Condition at Discharge/Transfer from Department: Stable This chart was completed using voice recognition technology and may contain unintended errors Archana Ly MD 08/03/15 [id number] documented in this encounter Plan of Treatment Upcoming Encounters Date Type Department Care Team (Late st Contact Info) Description 07/29/2024 9:00 AM EST Appointment [facility] [address] [place] [id number] Jomar Kim MD [address] [place] [address] documented as of this encounter Procedures Procedure Name Priority Date/Time Associated Diagnosis Comments URINALYSIS STAT 08/03/2015 9:16 PM EST DIFFERENTIAL STAT 08/03/2015 8:13 PM EST CBC WITH DIFF STAT 08/03/2015 8:13 PM EST BASIC METABOLIC PANEL STAT 08/03/2015 8:13 PM EST documented in this encounter Results * (ABNORMAL) URINALYSIS (08/03/2015 9:16 PM EST) UA Color Yellow [facility] UA Appear Slightly Hazy(A) Clear [facility] UA Glucose Negative Negative [facility] UA Ketones Negative Negative [facility] UA Blood Large(A) Negative [facility] UA pH 6.0 5.0 - 8.0 [facility] Comment:Reference range dano d for random specimens only. UA Protein Negative Negative [facility] UA Urobilinogen 0.2 E.U./dL <=1 E.U./dL [facility] UA Nitrite Negative Negative [facility] UA Leuk Est Small(A) Negative [facility] UA Spec Grav 1.025 1.001 - 1.035 [facility] Comment:Reference range dano d for random specimens only. UA WBC 3-5 0 - 4 /HPF [facility] UA RBC 3-5(A) 0 - 3 /HPF [facility] UA Squam Epi Rare [facility] UA Bacteria Trace [facility] Urine specimen (specimen) URINE SPECIMEN COLLECTION, CLEAN CATCH / Unknown 08/03/2015 9:16 PM EST 08/03/2015 9:22 PM EST Archana Ly MD URINE ORDERABLES Final Resu lt Performing Organization Address [facility] Co de Phone Number [facility] [address] [place] [address] * (ABNORMAL) DIFFERENTIAL (08/03/2015 8:13 PM EST) Neut Percent 65.5 % [facility] Lymph Percent 21.9 % [facility] Pepin Percent 7.7 % [facility] Eos Percent 3.9 % [facility] Baso Percent 1.0 % [facility] Neut# 8.1(H) 1.8 - 7.7 x10(3)/[facility] Lymph# 2.7 0.6 - 4.8 x10(3)/[facility] Pepin# 1.0 0.0 - 1.3 x10(3)/[facility] Eos# 0.5 0.0 - 0.5 x10(3)/[facility] Baso# 0.1 0.0 - 0.2 x10(3)/[facility] Blood specimen (specimen) 08/03/2015 8:13 PM EST 08/03/2015 8:30 PM EST Archana Ly MD HEMATOLOGY ORDERABLES Final Result Performing Organization Address [facility] de Phone Number [facility] [address] [place] [address] * (ABNORMAL) BASIC METABOLIC PANEL (08/03/2015 8:13 PM EST) [facility] Sodium 142 136 - 145 mmol/L [facility] Potassium 3.9 3.5 - 5.0 mmol/L [facility] Chloride 103 98 - 107 mmol/L [facility] Total CO2 27 22 - 29 mmol/L [facility] Anion Gap 12 7 - 16 mmol/L [facility] Calcium 9.8 8.6 - 10.2 mg/dL [facility] Glucose Lvl 113(H) 74 - 100 mg/dL [facility] BUN 18 6 - 20 mg/dL [facility] Creatinine 0.70 0.51 - 1.30 mg/dL [facility] GFR Afr Am >60 [facility] GFR Non Afr Am >60 [facility] Blood specimen (specimen) UPPER LIMB STRUCTURE / Unknown 08/03/2015 8:13 PM EST 08/03/2015 8:30 PM EST Archana Ly MD CHEMISTRY ORDERABLES Edited Result - Final Performing Organization Address City/[facility] Co de Phone Number [facility] [address] [place] [address] * (ABNORMAL) CBC WITH AUTO DIFF (08/03/2015 8:13 PM EST) WBC 12.4(H) 4.0 - 11.0 x10(3)/[facility] RBC 4.05 3.80 - 5.10 x10(6)/[facility] Hgb 11.1(L) 12.0 - 15.6 gm/dL [facility] Hct 35.6(L) 35.7 - 45.9 % [facility] MCV 87.9 82.5 - 99.[address] [facility] MCH 27.4 27.0 - 34.[address] [facility] MCHC 31.1(L) 32.1 - 35.3 gm/dL [facility] RDW 14.7 11.5 - 15.0 % [facility] Platelet 260 144 - 423 x10(3)/[facility] MPV 8.2 6.8 - 10.[address] [facility] Blood specimen (specimen) UPPER LIMB STRUCTURE / Unknown 08/03/2015 8:13 PM EST 08/03/2015 8:30 PM EST us Archana Ly MD HEMATOLOGY ORDERABLES Final Result Performing Organization Address [facility] Co de Phone Number [facility] [address] [place], [place] [id number] documented in this encounter Visit Diagnoses Diagnosis Constipation, unspecified constipation type- Primary Pain of left lower extremity documented in this encounter Administered Medications Inactive Administered Medications - up to 1 most recent administrations Medication Order MAR Action Action Date Dose Rate Site ketorolac (TORADOL) injection 60 mg 60 mg, Intramuscular, ONCE, 1 dose, On Cyn 08/03/15 at 2014, Maximum IV dose is 30mg Given 08/03/2015 8:15 PM EST 60 mg Right Upper Outer Quadrant magnesium citrate solution 296 mL 296 mL, Oral, ONCE, 1 dose, On Cyn 08/03/15 at 2014 Started 08/03/2015 8:31 PM EST 296 mL documented in this encounter Active and Recently Administered Medications Times are shown in EST. Scheduled Medication Order 08/01/2015 08/02/2015 08/03/2015 ketorolac (TORADOL) injection 60 mg (COMPLETED) 60 mg, Intramuscular, ONCE, 1 dose, On Cyn 08/03/15 at 2014, Maximum IV dose is 30mg 2014 (Given - Provid er: Nanda Dennison RN) magnesium citrate solution 296 mL (COMPLETED) 296 mL, Oral, ONCE, 1 dose, On Cyn 08/03/15 at 2014 2030 (Started - Prov ider: Nanda Dennison RN)2049 (Stopped - Provider: Nanda Dennison RN) documented in this encounter Care Teams Satellite Technician Relationship Specialty Start Date End Date Cristiane Shirley MD [address] [place] [address] PCP - General Family Medicine 12/28/14 11/18/16 Garett Holt MD Internal Medicine-Gastroenterology 12/22/12 Ruiz Stokes MD [address] [place] [address] Internal Medicine-Cardiovascular Disease 07/25/14 documented as of this encounter
--- OUTSIDE RECORDS SUMMARY | 2024-07-22 16:16 | XMS_ITS | Encounter Summary ---
Author Organization [place] [address] Care Team Providers Care Stain Dipper Name Role Phone Garett Holt MD Unavailable [phone] Ruiz Stokes MD Unavailable [phone] Cristiane Shirley MD Primary Care Provider [phone] Reason for Visit * Reason Onset Date Comments Other 05/19/2015 Encounter Details Date Type Department Care Team (Late st Contact Info) Description 05/19/2015 Telephone [facility] [address] [place] [address] Cristiane Shirley MD [address] [place] [address] Other Social History Tobacco Use [...] sulfamethoxazole-tr imethoprim (BACTRIM DS) 800-160 mg Oral Tablet Take 1 Tab by mouth 2 times daily for 10 days. 20 Tab 0 05/19/2015 05/29/2015 sulfamethoxazole-tr imethoprim (BACTRIM DS) 800-160 mg Oral Tablet Take 1 Tab by mouth 2 times daily for 10 days. 20 Tab 0 05/19/2015 05/19/2015 documented in this encounter Miscellaneous Notes * Addendum Note - Soledad Zavala RMA - 05/19/2015 12:34 PM EDTAddended by: SOLEDAD ZAVALA L on: 05/19/2015 12:34 PM Modules accepted: Orders * Telephone Encounter - Daisy Newman - 05/19/2015 9:52 AM EDT Needs something called in for an UTI. documented in this encounter Plan of Treatment Upcoming Encounters Date Type Department Care Team (Late st Contact Info) Description 07/29/2024 9:00 AM EST Appointment [facility] [address] [place] [address] Jomar Kim MD [address] [place] [address] documented as of this encounter Visit Diagnoses Not on filedocumented in this encounter Discontinued Medications Medication Sig Discontinue Reason Start Date End Da te sulfamethoxazole-trimetho prim (BACTRIM DS) 800-160 mg per tablet Take 1 Tab by mouth 2 times daily for 10 days. Reorder 04/02/2014 05/19/2015 sulfamethoxazole-trimetho prim (BACTRIM DS) 800-160 mg Oral Tablet Take 1 Tab by mouth 2 times daily for 10 days. Reorder 05/19/2015 05/19/2015 documented as of this encounter Care Teams Stain Dipper Relationship Specialty Start Date End Date Cristiane Shirley MD [address] [place] [address] PCP - General Family Medicine 12/28/14 11/18/16 Garett Holt MD Internal Medicine-Gastroenterology 12/22/12 Ruiz Stokes MD [address] [place] [address] Internal Medicine-Cardiovascular Disease 07/25/14 documented as of this encounter
--- OUTSIDE RECORDS SUMMARY | 2024-07-22 16:16 | XMS_ITS | Encounter Summary ---
Author Organization [place] [address] Care Team Providers Care Collection Team Lead Name Role Phone Garett Holt MD Unavailable [phone] Ruiz Stokes MD Unavailable [phone] Cristiane Shirley MD Primary Care Provider [phone] Reason for Visit * Reason Comments Follow-up 3 week ret after [facility] Edema Ankles and tops of f eet. Encounter Details Date Type Department Care Team (Late st Contact Info) Description 05/08/2015 2:45 PM EDT Office Visit [facility] [address] [address] Ruiz Stokes MD [address] [place] [address] Acute coronary syndrome (HCC) (Primary Dx); Chest pain, unspecified chest pain type; Systolic murmur; Type 2 diabetes mellitus without complication (HCC) [...] Reading Time Taken Comments Blood Pressure 124/70 05/08/2015 2:48 PM EDT Pulse 88 05/08/2015 2:48 PM EDT Temperature - - Respiratory Rate - - Oxygen Saturation - - Inhaled Oxygen Concentration - - Weight 122.4 kg (269 lb 12.8 oz) 05/08/2015 2:48 PM EDT Height 162.6 cm (5' 4 ) 05/08/2015 2:48 PM EDT Body Mass Index 46.31 05/08/2015 2:48 PM EDT documented in this encounter Ordered Prescriptions Prescription Sig Dispense Quantity Refills Last Filled Start Date End Date carvedilol (COREG) 6.25 mg Oral TabletIndications:A cute coronary syndrome (HCC),Chest pain, unspecified chest pain type,Systolic murmur,Type 2 diabetes mellitus without complication (HCC) Take 1 Tab by mouth 2 times daily (with meals). 60 Tab 6 05/08/2015 11/15/2015 documented in this encounter Progress Notes * Ruiz Stokes MD - 05/08/2015 3:00 PM EDT Cardiology Progress Note Patient Name: Alyssa Jamil : 1955 Subjective Chief Complaint Patient presents with ??? Follow-up 3 week ret after [facility] ??? Edema Ankles and tops of feet. HPI 2 week follow up After [facility] No CP or SOB Mild LE edema per pt Former smoker No sx of orthopnea Obese and sedentary Rx BP with Amlodipine and lisinopril [facility] 04/13/15 LM: Normal LAD: Normal CX; Normal RCA: [...] mellitus (HCC) borderline ??? Anemia on iron ??? Sleep apnea ??? Hyperlipidemia ??? Hypertension Current Outpatient Rx Name Route Sig Dispense [...] iron polysaccharides (FERREX 150 FORTE PLUS) 150-60-25-1 xe-gh-[id number]-mg Oral Capsule Oral Take 1 capsule by [...] [facility]; Service: Allergies Allergen Reactions ??? Nexium [Esomeprazole Magnesium] Hives ??? No Known Allergies Family History Problem Relation Age of Onset ??? Heart Disease Father ??? Cataracts Father ??? Diabetes Father ??? Cancer Maternal Grandmother ??? Colon Cancer Maternal Grandmother Objective Filed Vitals: 05/08/15 1448 BP: 124/70 Pulse: 88 Exam: GENERAL APPEARANCE: In no acute distress [...] No results found for this visit on 05/08/15. Labs Lab Results Component Value Date CHOLESTEROL [...] 04/02/2014 Lab Results Component Value Date HGBA1C 6.1 11/08/2014 HGBA1C 6.1 07/23/2014 HGBA1C 6.2 05/31/2014 Lab Results Component Value Date NA 141 04/10/2015 NA 140 11/08/2014 NA 143 09/13/2014 K 4.4 04/10/2015 K 4.0 11/08/2014 K 3.9 09/13/2014 BUN 18 04/10/2015 BUN 17 11/08/2014 BUN 11 09/13/2014 CALCIUM 10.0 04/10/2015 CALCIUM 9.9 11/08/2014 CALCIUM 9.8 09/13/2014 CL 101 04/10/2015 CL 102 11/08/2014 CL 100 09/13/2014 CO2 28 04/10/2015 CO2 30* 11/08/2014 CO2 30* 09/13/2014 CREATININE 0.80 04/10/2015 CREATININE 0.65 11/08/2014 CREATININE 0.69 09/13/2014 GLU 109* 04/10/2015 GLU 108* 11/08/2014 GLU 95 09/13/2014 Lab Results Component Value Date ALT 19 04/10/2015 ALT 20 11/08/2014 ALT 21 05/31/2014 AST 15 04/10/2015 AST 15 11/08/2014 AST 16 05/31/2014 ALKPHOS 70 04/10/2015 ALKPHOS 74 11/08/2014 ALKPHOS 79 05/31/2014 BILITOT 0.2 06/22/2012 Assessment Patient Active Problem [...] whether generalized or localized, unspecified site Impression 2 week follow up After [facility] No CP or SOB Mild LE edema per pt Former smoker No sx of orthopnea Obese and sedentary Rx BP with Amlodipine and lisinopril [facility] 04/13/15 LM: Normal LAD: Normal CX; Normal RCA: Dom PDA, normal EF 60% EDP 15 PLAN: Med Mgmt Plan D/C amlodipine --likely cause of her LE edema --D/C Lasix and KCL Start Carvediolol 6.25 BID F/U 1 mo for BP check Thank you for allowing me to participate in the care of your patients. Please call with any concerns or questions Ruiz Stokes MD [facility] documented in this encounter Miscellaneous Notes * Patient Instructions - Sayra Conner RMA - 05/08/2015 2:48 PM EDT You may be contacted by mail [...] AM EST Appointment [facility] [address] [place] [id number] Jomar Kim MD [address] [place] [address] documented as of this encounter Visit Diagnoses Diagnosis Acute coronary syndrome (HCC)- Primary Intermediate coronary syndrome Chest pain, unspecified chest pain type Systolic murmur Undiagnosed cardiac murmurs Type 2 diabetes mellitus without complication (HCC) documented in this encounter Discontinued Medications Medication Sig Discontinue Reason Start Date End Da te amLODIPine (NORVASC) 10 mg Oral TabletIndications:Essentia l hypertension Take 1 Tab by mouth daily. Cancelled by 03/15/2015 05/08/2015 fUROsemide (LASIX) 40 mg Oral TabletIndications:Esophage al reflux,Osteoarthrosis, unspecified whether generalized or localized, unspecified site,Dysphagia,Leg pain, right,SOB (shortness of breath),HAMIDA (obstructive sleep apnea) Take 1 Tab by mouth daily. Cancelled by 08/19/2014 05/08/2015 potassium chloride SA (K-DUR;KLOR-CON) 20 mEq Oral Tab Sust.Rel. Particle/CrystalIndication s:Esophageal reflux,Osteoarthrosis, unspecified whether generalized or localized, unspecified site,Dysphagia,Leg pain, right,SOB (shortness of breath),HAMIDA (obstructive sleep apnea) Take 1 Tab by mouth daily. Cancelled by 08/19/2014 05/08/2015 documented as of this encounter Care Teams Collection Team Lead Relationship Specialty Start Date End Date Cristiane Shirley MD [address] [place] [address] PCP - General Family Medicine 12/28/14 11/18/16 Garett Holt MD Internal Medicine-Gastroenterology 12/22/12 Ruiz Stokes MD [address] [facility] [place] [address] Internal Medicine-Cardiovascular Disease 07/25/14 documented as of this encounter
--- OUTSIDE RECORDS SUMMARY | 2024-07-22 16:16 | XMS_ITS | Encounter Summary ---
Author Organization [place] [address] Care Team Providers Care Scientific Informatics Leader Name Role Phone Garett Holt MD Unavailable [phone] Ruiz Stokes MD Unavailable [phone] Cristiane Shirley MD Primary Care Provider Reason for Visit * Reason Comments Medication Refill Encounter Details Date Type Department Care Team (Late st Contact Info) Description 09/30/2015 Refill [facility] [address] [place] [id number] Cristiane Shirley MD [address] [place] [address] Medication Refill Social History Tobacco Use Types [...] MOUTH DAILY (WITH BREAKFAST). 90 Tab 0 09/30/2015 11/15/2015 amLODIPine (NORVASC) 10 mg Oral Tablet TAKE 1 TAB BY MOUTH DAILY. 30 Tab 2 09/30/2015 11/15/2015 documented in this encounter Plan of Treatment Upcoming Encounters Date Type Department Care Team (Late st Contact Info) Description 07/29/2024 9:00 AM EST Appointment [facility] [address] [place] [address] Jomar Kim MD [address] [place] [address] documented as of this encounter Visit Diagnoses Not on filedocumented in this encounter Discontinued Medications Medication Sig Discontinue Reason Start Date End Da te metFORMIN (GLUCOPHAGE) 500 mg Oral TabletIndications:Type 2 diabetes mellitus without complication (HCC) Take 1 Tab by mouth daily (with breakfast). Reorder 03/15/2015 09/30/2015 documented as of this encounter Care Teams Scientific Informatics Leader Relationship Specialty Start Date End Date Cristiane Shirley MD [address] [place], [place] [id number] PCP - General Family Medicine 12/28/14 11/18/16 Garett Holt MD Internal Medicine-Gastroenterology 12/22/12 Ruiz Stokes MD [address] [place], [place] [id number] Internal Medicine-Cardiovascular Disease 07/25/14 documented as of this encounter
--- OUTSIDE RECORDS SUMMARY | 2024-07-22 16:17 | XMS_ITS | Encounter Summary ---
Author [place] [address] Care Team Providers Care Java Security Architect Name Role Phone Garett Holt MD Unavailable [phone] Ruiz Stokes MD Unavailable [phone] Cristiane Shirley MD Primary Care Provider Encounter Details Date Type Department Care Team (Late Contact Info) Description 01/16/2015 [facility] [address] [place] [address] Annalise Oneill MD [address] [place] [phone] Social History Tobacco Use Types Packs/Day Years Used Date Smoking Tobacco: Former Smokeless Tobacco: Never Alcohol Use Standard Drinks/Week Comments No 0 (1 standard drink = 0.6 oz pur e alcohol) Comments No Sex and Gender Information Value [...] 9:00 AM EST Appointment [facility] [address] [place] [address] Jomar Kim MD [address] [place], [place] [id number] documented as of this encounter Visit Diagnoses Not on filedocumented in this encounter Care Teams Java Security Architect Relationship Specialty Start Date End Date Cristiane Shirley MD [address] [place] [address] PCP - General Family Medicine 12/28/14 11/18/16 Garett Holt MD Internal Medicine-Gastroenterology 12/22/12 Ruiz Stokes MD [address] [place] [address] Internal Medicine-Cardiovascular Disease 07/25/14 documented as of this encounter
--- OUTSIDE RECORDS SUMMARY | 2024-07-22 16:17 | XMS_ITS | Encounter Summary ---
Author Organization [place] [address] Care Team Providers Care Buying Intern Name Role Phone Garett Holt MD Unavailable [phone] Ruiz Stokes MD Unavailable [phone] Cristiane Shirley MD Primary Care Provider [phone] Reason for Visit * Reason Comments Abdominal Pain cpta-none, pt report s painful urination started a few days ago. also reports abdominal with hernia's Encounter Details Date Type Department Care Team (Late st Contact Info) Description 03/13/2015 10:02 AM EDT - 03/13/2015 11:24 AM EDT Emergency [facility] [address] [facility] [place] [address] Aleena Griffin, DO [address] [facility] [place] [address] Postmenopausal bleeding (Primary Dx) Discharge Disposition: Home or Self [...] Sign Reading Time Taken Comments Blood Pressure 154/72 03/13/2015 11:12 AM EDT Pulse 72 03/13/2015 11:12 AM EDT Temperature 36.9 ??C (98.4 ??F) 03/13/2015 11:12 AM E DT Respiratory Rate 16 03/13/2015 11:12 AM EDT Oxygen Saturation 98% 03/13/2015 11:12 AM EDT Inhaled Oxygen Concentration - - Weight 125.2 kg (276 lb) 03/13/2015 11:12 AM EDT Height - - Body Mass Index 47.38 12/28/2014 10:16 AM EDT documented in this encounter Discharge Instructions * Attachments The following attachments cannot be sent through Care Everywhere. * VAGINITIS, MONILIAL ([place]) * POSTMENOPAUSAL BLEEDING, [id number] ([place]) documented in this encounter Medications at Time of Discharge miconazole (MICONAZOLE) [address] 1 Suppository vaginally nightly for 3 days. 3 Suppository 0 03/13/2015 03/16/20 15 documented as of this encounter Ordered Prescriptions Prescription Sig Dispense Quantity Refills Last Filled Start Date End Date miconazole (MICONAZOLE) [address] 1 Suppository vaginally nightly for 3 days. 3 Suppository 0 5 03/16/20 15 documented in this encounter Discharge Disposition Disposition Code Departure Means Destination Home or Self Halfway documented in this encounter ED Notes * Aleena Griffin, - 03/13/2015 10:51 AM EDT CHIEF COMPLAINT Chief Complaint Patient presents with ??? Abdominal Pain cpta-none, pt reports painful urination started a few days ago. also reports abdominal with hernia's HPI Alyssa Jamil is a 59 y.o. female who presents for evaluation of lower abdominal pain. Onset over the last couple of days. Her pet some associated dysuria. Vague description of discomfort. She statesthat also came on after having a menstrual cycle one week ago. She had heavy flow for 3-4 days, no longer bleeding. This was a postmenopausal bleed. She is not sexually active. She denies any vaginal discharge. No fevers, chills, nausea, vomiting, change in appetite, constipation, diarrhea, blood in stools. History of hiatal hernia, occasionally gets reflux. No extremity swelling, chest pain, shortness of breath. REVIEW OF SYSTEMS See HPI for further details. Review of systems otherwise negative. PAST MEDICAL HISTORY Past Medical History Diagnosis Date ??? Shortness of breath ??? Asthma ??? Other and unspecified angina pectoris (HCC) ??? Heartburn nausea after eating ??? Ulcer (HCC) ??? Arthritis all over ??? 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 Diabetes mellitus (HCC) borderline ??? Anemia on iron FAMILY HISTORY Family History Problem Relation Age of Onset ??? Heart Disease Father ??? Cataracts Father ??? Diabetes Father ??? Cancer Maternal Grandmother ??? Colon Cancer Maternal Grandmother SOCIAL HISTORY History Social History ??? Marital Status: Spouse Name: N/A Number of Children: 2 ??? Years of Education: N/A Occupational History ??? disabled Social History Main Topics ??? Smoking status: Former Smoker ??? Smokeless tobacco: Never Used ??? Alcohol Use: No ??? Drug Use: None ??? Sexual Activity: None Other Topics Concern ??? None Social History Narrative SURGICAL HISTORY Past Surgical History Procedure Laterality Date ??? Cholecystectomy ??? Colonoscopy ??? Upper gastrointestinal endoscopy ??? Upper gastrointestinal endoscopy 02/17/2013 Surgeon: Garett Hlot MD; Location: [facility]; Service: ??? Colonoscopy 02/17/2013 Surgeon: Garett Holt MD; Location: [facility]; Service: CURRENT MEDICATIONS Current Outpatient Rx Name Route Sig Dispense Refill ??? DULoxetine (CYMBALTA) 30 mg Oral Capsule, Delayed Release(E.C.) Oral Take 1 Cap by mouth daily. 30 Cap 2 ??? metFORMIN (GLUCOPHAGE) 500 mg Oral Tablet Oral Take 1 Tab by mouth daily (with breakfast). 90 Tab 1 ??? simvastatin (ZOCOR) 10 mg Oral Tablet Oral Take 1 Tab by mouth every evening. 90 Tab 3 refill request ??? naproxen sodium (ANAPROX) 550 mg Oral Tablet Oral Take 1 Tab by mouth 2 times daily as needed. 60 Tab 2 ??? lisinopril (PRINIVIL;ZESTRIL) 10 mg Oral Tablet Oral Take 2 Tabs by mouth daily. 60 Tab 5 ??? fUROsemide (LASIX) 40 mg Oral Tablet [...] iron polysaccharides (FERREX 150 FORTE PLUS) 150-60-25-1 gu-qj-bfo-mg Oral Capsule Oral Take 1 capsule by [...] Tab by mouth daily. 100 Tab 4 ALLERGIES Allergies Allergen Reactions ??? No Known Allergies PHYSICAL EXAM VITAL SIGNS: There were no vitals taken for this visit. Constitutional: Well developed, Well nourished, No acute distress, Non-toxic appearance. HENT: Normocephalic, Atraumatic, Bilateral external ears normal, Oropharynx moist, No oral exudates, Nose normal. Eyes: PERRLA, EOMI, Conjunctiva normal, No discharge. Neck: Normal range of motion, No tenderness, Supple, No stridor. Cardiovascular: Normal heart rate, Normal rhythm, No murmurs Thorax & Lungs: Normal breath sounds, No respiratory distress, No wheezing. Abdomen: Bowel sounds normal, Soft, No tenderness, No masses Skin: Warm, Dry, No erythema, No rash. Back: No tenderness, No CVA tenderness. Extremities: Intact distal pulses, No edema, No tenderness, No cyanosis, No clubbing. . Neurologic: Alert & oriented x 3, Normal motor function, Normal sensory function, No focal deficits RADIOLOGY/PROCEDURES Results for orders placed or performed during the hospital encounter of 03/13/15 URINALYSIS Result Value Ref Range UA Color Yellow UA Appear Clear Clear UA Glucose Negative Negative UA Ketones Negative Negative UA Blood Small (A) Negative UA pH 6.0 5.0 - 8.0 UA Protein Trace (A) Negative UA Urobilinogen 1.0 E.U./dL <=1 E.U./dL UA Nitrite Negative Negative UA Leuk Est Negative Negative UA Spec Grav 1.025 UA RBC 1-4 /HPF UA Squam Epi 2+ UA Mucus Trace UA Amorph Trace UA Bacteria Trace COURSE & MEDICAL DECISION MAKING Pertinent Labs & Imaging studies reviewed. (See chart for details) Patient presents for evaluation of some lower abdominal discomfort, mild dysuria. She reports postmenopausal bleeding last week. Her abdominal exam and urine are benign. She has some vaginal itching and will be treated for vaginitis with miconazole suppositories, also given referral for ultrasound of her pelvis given abnormal bleeding with encouragement for primary care follow-up in the next few days for recheck. FINAL IMPRESSION 1. Postmenopausal bleeding Disposition: home, stable condition Critical care was administered to the patient for 0 minutes. This time excludes procedure time. This chart was completed using voice recognition technology and may contain unintended errors Aleena Griffin DO 03/13/15 1400 documented in this encounter Plan of Treatment Upcoming Encounters Date Type Department Care Team (Late st Contact Info) Description 07/29/2024 9:00 AM EST Appointment [facility] [address] [place] [address] Jomar Kim MD [address] [place] [address] documented as of this encounter Procedures Procedure Name Priority Date/Time Associated Diagnosis Comments URINALYSIS STAT 03/13/2015 10:30 AM EDT documented in this encounter Results * (ABNORMAL) URINALYSIS (03/13/2015 10:30 AM EDT) UA Color Yellow [facility] UA Appear Clear Clear [facility] UA Glucose Negative Negative [facility] UA Ketones Negative Negative [facility] UA Blood Small(A) Negative [facility] UA pH 6.0 5.0 - 8.0 [facility] Comment:Reference range dano d for random specimens only. UA Protein Trace(A) Negative [facility] UA Urobilinogen 1.0 E.U./dL <=1 E.U./dL [facility] UA Nitrite Negative Negative [facility] UA Leuk Est Negative Negative [facility] UA Spec Grav 1.025 [facility] Comment:Reference range dano d for random specimens only. UA RBC 1-4 /HPF [facility] UA Squam Epi 2+ [facility] UA Mucus Trace [facility] UA Amorph Trace [facility] UA Bacteria Trace [facility] Urine specimen (specimen) URINE SPECIMEN COLLECTION, CLEAN CATCH / Unknown 03/13/2015 10:30 AM EDT 03/13/2015 10:32 AM EDT us Aleena Griffin DO URINE ORDERABLES Final Result [facility] [address] [place] [address] documented in this encounter Visit Diagnoses Diagnosis Postmenopausal bleeding- Primary documented in this encounter Care Teams Buying Intern Relationship Specialty Start Date End Date Cristiane Shirley MD [address] [place] [address] PCP - General Family Medicine 12/28/14 11/18/16 Garett Holt MD Internal Medicine-Gastroenterology 12/22/12 Ruiz Stokes MD [address] [place] [address] Internal Medicine-Cardiovascular Disease 07/25/14 documented as of this encounter
--- OUTSIDE RECORDS SUMMARY | 2024-07-22 16:17 | XMS_ITS | Encounter Summary ---
Author Organization [place] [address] Care Team Providers Care Rhit Name Role Phone Garett Holt MD Unavailable [phone] Ruiz Stokes MD Unavailable [phone] Annalise Oneill MD Primary Care Provider [phone] Reason for Visit * Reason Onset Date Comments Other 10/08/2014 referral-Dr Chayito das Encounter Details Date Type Department Care Team (Late st Contact Info) Description 10/08/[address] [address] Annalise Oneill MD [address] [place] [address] Other (referral-Dr Patel ) Social History Tobacco Use Types Packs/Day [...] encounter Miscellaneous Notes * Telephone Encounter - VijiKatherinene - 10/17/2014 12:55 PM EST Letter sent * Telephone Encounter - Katherine Hallmanne - 10/08/2014 8:57 AM EST My chart documented in this encounter Plan of Treatment Upcoming Encounters Date Type Department Care Team (Late st Contact Info) Description 07/29/2024 9:00 AM EST Appointment [facility] [address] [place] [address] Jomar Kim MD [address] [place], [place] [id number] documented as of this encounter Visit Diagnoses Not on filedocumented in this encounter Care Teams Rhit Relationship Specialty Start Date End Date Annalise Oneill MD [address] [place] [address] PCP - General Family Medicine 10/03/14 12/27/14 Garett Holt MD Internal Medicine-Gastroenterology 12/22/12 Ruiz Stokes MD [address] [place] [address] Internal Medicine-Cardiovascular Disease 07/25/14 documented as of this encounter
--- OUTSIDE RECORDS SUMMARY | 2024-07-22 16:17 | XMS_ITS | Encounter Summary ---
Author Organization [place] [address] Care Team Providers Care Dot Compliance Specialist Name Role Phone Garett Holt MD Unavailable [phone] Ruiz Stokes MD Unavailable [phone] Cristiane Shirley MD Primary Care Provider [phone] Reason for Referral * Consultation (Routine) - Closed Specialty Diagnoses / Procedures Referred By Ron bansal Referred To Contact Obstetrics and Gynecology Diagnoses Endometrial hyperplasia Cristiane Shirley MD Phone: tel: fax: Gianni Giron MD [address] [place] [address] [address] [place] [address] Phone: tel: fax: Referral ID Status Reason Start Date Expiration Date V isits Requested Visits Authorized [id number] Closed Specialty Services Required 03/14/2015 03/13/2016 1 1 Encounter Details Date Type Department Care Team (Late st Contact Info) Description 03/14/2015 Orders Only [facility] [address] [place] [address] Cristiane Shirley MD [address] [place] [address] Endometrial hyperplasia (Primary Dx) Social History Tobacco Use Types [...] AM EST Appointment [facility] [address] [place] [address] Jomar Kim MD [address] [place] [address] Scheduled Referrals Name Type Priority Associated Diagnoses Orde r Schedule AMB REFERRAL TO OB-PETROPHYSICIST Outpatient Referral Routine Endometrial hyperplasia Ordered: 03/14/2015 documented as of this encounter Visit Diagnoses Diagnosis Endometrial hyperplasia- Primary Endometrial hyperplasia, unspecified documented in this encounter Care Teams Dot Compliance Specialist Relationship Specialty Start Date End Date Cristiane Shirley MD [address] [place] [address] PCP - General Family Medicine 12/28/14 11/18/16 Garett Holt MD Internal Medicine-Gastroenterology 12/22/12 Ruiz Stokes MD [address] [place] [address] Internal Medicine-Cardiovascular Disease 07/25/14 documented as of this encounter
--- OUTSIDE RECORDS SUMMARY | 2024-07-22 16:17 | XMS_ITS | Encounter Summary ---
Author Organization [place] [address] Care Team Providers Care Outside Operator Name Role Phone Garett Holt MD Unavailable [phone] Ruiz Stokes MD Unavailable [phone] Cristiane Shirley MD Primary Care Provider [phone] Reason for Referral * Consultation (Routine) - Closed Specialty Diagnoses / Procedures Referred By Ron bansal Referred To Contact Cardiology Diagnoses Acute chest pain Nonspecific abnormal electrocardiogram (ECG) (EKG) Cristiane Shirley MD Phone: tel: fax: Ruiz Stokes MD [address] [place] [address] Phone: tel: fax: Referral ID Status Reason Start Date Expiration Date V isits Requested Visits Authorized [id number] Closed Specialty Services Required 03/15/2015 03/14/2016 1 1 Reason for Visit * Reason Comments Vaginal Pain Vaginal Bleeding Chest Pain Encounter Details Date Type Department Care Team (Late st Contact Info) Description 03/15/2015 10:30 AM EDT Office Visit [facility] [address] [place] [address] Cristiane Shirley MD [address] [place] [address] Nonspecific abnormal electrocardiogram (ECG) (EKG) (Primary Dx); Vaginal pain; Vaginal itching; Bilateral low back pain without sciatica; Acute chest pain; Endometrial hyperplasia; Type 2 diabetes mellitus without complication (HCC); Hyperlipidemia; Essential hypertension Social History Tobacco Use Types Packs/Day Years [...] Sign Reading Time Taken Comments Blood Pressure 162/94 03/15/2015 10:36 AM EDT Pulse - - Temperature 37.1 ??C (98.7 ??F) 03/15/2015 10:36 AM E DT Respiratory Rate - - Oxygen Saturation - - Inhaled Oxygen Concentration - - Weight 122.9 kg (271 lb) 03/15/2015 10:36 AM EDT Height 162.6 cm (5' 4 ) 03/15/2015 10:36 AM EDT Body Mass Index 46.52 03/15/2015 10:36 AM EDT documented in this encounter Ordered Prescriptions Prescription Sig Dispense Quantity Refills Last Filled Start Date End Date amLODIPine (NORVASC) 10 mg Oral TabletIndications: Essential hypertension Take 1 Tab by mouth daily. 30 Tab 3 03/15/2015 5 lisinopril (PRINIVIL;ZESTRIL) 10 mg Oral TabletIndications: Essential hypertension Take 2 Tabs by mouth daily. 60 Tab 5 03/15/2015 6 simvastatin (ZOCOR) 10 mg Oral TabletIndications: Hyperlipidemia Take 1 Tab by mouth every evening. 90 Tab 3 03/15/2015 6 metFORMIN (GLUCOPHAGE) 500 mg Oral TabletIndications: Type 2 diabetes mellitus without complication (HCC) Take 1 Tab by mouth daily (with breakfast). 90 Tab 1 03/15/2015 6 nystatin (MYCOSTATIN) Top CreamIndications:V aginal itching Apply topically 2 times daily for 14 days. 30 g 2 03/15/2015 5 fluconazole (DIFLUCAN) 150 mg Oral TabletIndications: Vaginal itching Take 1 Tab by mouth once for 1 dose. 1 Tab 0 03/15/2015 5 documented in this encounter Progress Notes * Cristiane Shirley MD - 03/15/2015 10:30 AM EDT Subjective Subjective: Patient ID: Alyssa Jamil is a 59 y.o. female. Chief Complaint Patient presents with ??? Vaginal Pain ??? Vaginal Bleeding ??? Chest Pain Vaginal Pain The patient's primary symptoms include vaginal bleeding. This is a recurrent problem. The current episode started in the past 7 days. The problem occurs daily. The problem has been gradually worsening. Associated symptoms include back pain. Pertinent negatives include no abdominal pain, chills, diarrhea, fever, nausea, rash, sore throat or vomiting. Vaginal Bleeding The patient's primary symptoms include vaginal bleeding. This is a recurrent problem. The current episode started 1 to 4 weeks ago. The problem occurs intermittently. The problem has been gradually improving. The pain is mild. She is not . Associated symptoms include back pain. Pertinent negatives include no abdominal pain, chills, diarrhea, fever, nausea, rash, sore throat or vomiting. Chest Pain This is a new problem. The current episode started yesterday. The onset quality is sudden. The problem occurs daily. The most recent episode lasted 1 minute. The problem has been gradually worsening since onset. The quality of the pain is described as squeezing, tightness and pressure. Associated symptoms include back pain. Pertinent negatives include no abdominal pain, fever, nausea, neck pain, p alpitations, sore throat or wheezing. Back Pain This is a new problem. The current episode started in the past 7 days. The problem occurs daily. The problem has been gradually worsening. Associated symptoms include chest pain and swollen glands. Pertinent negatives include no abdominal pain, chills, congestion, fatigue, fever, joint swelling, nausea, neck pain, rash, sore throat or vomiting. Pt is here today for vaginal pain and itching that has been present for the past week and has been getting worse. Pt states that she started out with vaginal bleeding that lasted for about a week buthas now stopped and she is having the vaginal pain and itching. Pt is also here today for chest pain. Pt states that the pain started yesterday and will come on suddenly lasting for about a minute but is now becoming more frequently. She describes it as a tight, squeezing pain. Pt is also here today for lower back pain that has been present for the past week as well. Patients past medical, family and social histories were reviewed and updated. There were no changesexcept as noted. Review of Systems Constitutional: Negative for fever, chills, activity change and fatigue. HENT: Negative for congestion, ear pain, rhinorrhea, sinus pressure, sneezing and sore throat. Eyes: Negative. Respiratory: Positive for chest tightness. Negative for shortness of breath and wheezing. Cardiovascular: Positive for chest pain. Negative for palpitations. Gastrointestinal: Negative for nausea, vomiting, abdominal pain and diarrhea. Genitourinary: Positive for vaginal bleeding and vaginal pain. Musculoskeletal: Positive for back pain. Negative for joint swelling and neck pain. Skin: Negative for rash and wound. Neurological: Negative. Psychiatric/Behavioral: Negative for behavioral problems, sleep disturbance and decreased concentration. The patient is not nervous/anxious and is not hyperactive. All other systems reviewed and are negative. Objective Objective: Filed Vitals: 03/15/15 1036 BP: 162/94 Temp: 98.7 ??F (37.1 ??C) TempSrc: Tympanic Height: 5' 4 (1.626 [...] cranial nerve deficit. Skin: Skin is warm. Rash noted. Psychiatric: She has a normal mood and affect. Her behavior is normal. Judgment and thought contentnormal. Nursing note and vitals reviewed. Assessment and Plan: Alyssa was seen today for vaginal pain, vaginal bleeding and chest pain. Diagnoses and associated orders for this visit: Nonspecific abnormal electrocardiogram (ECG) (EKG) - Cardiology Vaginal pain - POCT UA Vaginal itching - POCT UA - fluconazole (DIFLUCAN) 150 mg Oral Tablet; Take 1 Tab by mouth once for 1 dose. - nystatin (MYCOSTATIN) Top Cream; Apply topically 2 times daily for 14 days. Bilateral low back pain without sciatica - POCT UA Acute chest pain - POCT EKG - Cardiology Endometrial hyperplasia Type 2 diabetes mellitus without complication (HCC) - metFORMIN (GLUCOPHAGE) 500 mg Oral Tablet; Take 1 Tab by mouth daily (with breakfast). Hyperlipidemia - simvastatin (ZOCOR) 10 mg Oral Tablet; Take 1 Tab by mouth every evening. Essential hypertension - lisinopril (PRINIVIL;ZESTRIL) 10 mg Oral Tablet; Take 2 Tabs by mouth daily. - amLODIPine (NORVASC) 10 mg Oral Tablet; Take 1 Tab by mouth daily. To er if worsens. Above problems were discussed with patient and [...] given on the AVS for today's visit. Return if symptoms worsen or fail to improve. documented in this encounter Plan of Treatment Upcoming Encounters Date Type Department Care Team (Late st Contact Info) Description 07/29/2024 9:00 AM EST Appointment [facility] [address] [place], [place] [id number] Jomar Kim MD [address] [place] [address] Scheduled Referrals Name Type Priority Associated Diagnoses Orde r Schedule AMB REFERRAL TO CARDIOLOGY Outpatient Referral Routine Acute chest pain Nonspecific abnormal electrocardiogram (ECG) (EKG) Ordered: 03/15/2015 documented as of this encounter Procedures Procedure Name Priority Date/Time Associated Diagnosis Comments POCT URINALYSIS DIPSTICK Routine 03/15/2015 11:23 AM EDT Vaginal pain Vaginal itching Bilateral low back pain without sciatica POCT EKG Routine 03/15/2015 10:41 AM EDT Acute chest pain documented in this encounter Results * POCT URINALYSIS DIPSTICK (03/15/2015 11:23 AM EDT) Color, UA Clear, Yellow, [place], [place] [facility] Clarity, UA Clear, Cloudy [facility] Glucose, UA - g/dl% [facility] Bilirubin, UA - Pos/Neg [facility] Ketones, UA - 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 Grav, UA 1.005 1.001 - 1.035 g/dl [facility] Blood, UA 50 Pos/Neg [facility] pH, UA 8 5.0 - 8 [facility] Protein, UA - Pos/Neg [facility] Urobilinogen, UA - 0.2 - 1.0 mg/dL [facility] Leukocytes, UA trace Pos/Neg [facility] Nitrite, UA - Pos/Neg [facility] UA Appear POC [facility] Lot Number [id number] SEP OFF[facility] Expiration Date SEP [facility] SeriAl # SEP [facility]ICE Urine specimen (specimen) 03/15/2015 11:23 AM EDT us Cristiane Shirley MD POINT OF CARE TEST ORDERABLES Final Result [facility] * POCT EKG (03/15/2015 10:41 AM EDT) 03/15/2015 10:4 1 AM EDT us Cristiane Shirley MD POINT OF CARE CARDIOLOGY Final Result [facility] documented in this encounter Visit Diagnoses Diagnosis Nonspecific abnormal electrocardiogram (ECG) (EKG)- Primary Vaginal pain Unspecified symptom associated with female genital organs Vaginal itching Pruritus of genital organs Bilateral low back pain without sciatica Acute chest pain Chest pain, unspecified Endometrial hyperplasia Endometrial hyperplasia, unspecified Type 2 diabetes mellitus without complication (HCC) Hyperlipidemia Other and unspecified hyperlipidemia Essential hypertension Unspecified essential hypertension documented in this encounter Discontinued Medications Medication Sig Discontinue Reason Start Date End Da te metFORMIN (GLUCOPHAGE) 500 mg Oral TabletIndications:Diabete s mellitus (HCC) Take 1 Tab by mouth daily (with breakfast). Reorder 10/03/2014 03/15/2015 simvastatin (ZOCOR) 10 mg Oral TabletIndications:Hyperli pidemia Take 1 Tab by mouth every evening. Reorder 10/03/2014 03/15/2015 lisinopril (PRINIVIL;ZESTRIL) 10 mg Oral TabletIndications:HTN (hypertension) Take 2 Tabs by mouth daily. Reorder 10/03/2014 03/15/2015 documented as of this encounter Care Teams Outside Operator Relationship Specialty Start Date End Date Cristiane Shirley MD [address] [place] [address] PCP - General Family Medicine 12/28/14 11/18/16 Garett Holt MD Internal Medicine-Gastroenterology 12/22/12 Ruiz Stokes MD [address] [place], [place] [id number] Internal Medicine-Cardiovascular Disease 07/25/14 documented as of this encounter
--- OUTSIDE RECORDS SUMMARY | 2024-07-22 16:17 | XMS_ITS | Encounter Summary ---
Author Organization [place] [address] Care Team Providers Care Roofing Foreman Name Role Phone Garett Holt MD Unavailable [phone] Ruiz Stokes MD Unavailable [phone] Cristiane Shirley MD Primary Care Provider [phone] Reason for Visit * Ultrasound (Emergency) - Closed Specialty Diagnoses / Procedures Referred By Ron bansal Referred To Contact Radiology Diagnoses Postmenopausal bleeding Procedures US PELVIS AND TRANSVAGINAL NON OB COMPLETE US PELVIS NON OB COMPLETE US NON-OB TRANSVAGINAL Aleena Griffin DO [address] [facility] [place] [address] Phone: tel: fax: Referral ID Status Reason Start Date Expiration Date Visits Re quested Visits Authorized [id number] Closed 03/13/2015 03/12/2016 1 1 Encounter Details Date Type Department Care Team (Latest Contact Info) Description 03/13/2015 12:56 PM EDT - 03/13/2015 11:59 PM EDT Hospital Encounter [facility] [address] [facility] [place] [address] Aleena Griffin DO [address] [place] [address] Postmenopausal bleeding Discharge Disposition: Home or Self Care Social [...] 03/16/20 15 documented as of this encounter Discharge Disposition Disposition Code Departure Means Destination Home or Self Care documented in this encounter Plan of Treatment Upcoming Encounters Date Type Department Care Team (Late st Contact Info) Description 07/29/2024 9:00 AM EST Appointment [facility] [address] [place] [address] Jomar Kim MD [address] [place], [place] [id number] documented as of this encounter Procedures Procedure Name Priority Date/Time Associated Diagnosis Comments US PELVIS AND TRANSVAGINAL NON OB COMPLETE Routine 03/13/2015 1:49 PM EDT Postmenopausal bleeding documented in this encounter Results * US PELVIS AND TRANSVAGINAL NON OB COMPLETE (03/13/2015 1:49 PM EDT) Anatomical Region Laterality Modality Pelvis Ultrasound 03/13/2015 1:02 PM EDT Impressions 03/13/2015 2:05 PM EDT IMPRESSION: There is an abnormally thickened endometrial stripe measuring up to 1.3 cm. Differential considerations include endometrial hyperplasia or endometrial neoplasm. An endometrial biopsy should be considered. Narrative 03/13/2015 2:05 PM EDT US PELVIS AND TRANSVAGINAL NON OB COMPLETE ??Mar 13, 2015 01:49:19 PM Clinical: 627.1-Postmenopausal [id number] COMPARISONS: None. TECHNICAL FACTORS: Multiple crenshaw scale [...] is no free fluid in the pelvis. Procedure Note Aster Gonzalez MD - 03/13/2015 US PELVIS AND TRANSVAGINAL NON OB COMPLETE Mar 13, 2015 01:49:19 PM Clinical: 627.1-Postmenopausal [id number] COMPARISONS: None. TECHNICAL FACTORS: Multiple crenshaw scale and color DOPPLER images wereobtained of the pelvis via a transabdominal and transvaginal approach. FINDINGS: The uterus is normal in contour and echogenicity. The uterus measures 7 x3.6 x 6.1 cm. There is an abnormally thickened endometrial stripe complex measuring 1.3 cm. The right ovary is normal in contour and echogenicity. The right ovarymeasures 1 x 1.5 x 1.8 cm in size. Left ovary is not visualized. There is no free fluid in the pelvis. IMPRESSION: There is an abnormally thickened endometrial stripe measuring up to 1.3cm. Differential considerations include endometrial hyperplasia or endometrial neoplasm. Anendometrial biopsy should be considered. Aleena Griffin DO [facility] US ORDERABLES Final Result documented in this encounter Visit Diagnoses Diagnosis Postmenopausal bleeding documented in this encounter Care Teams Roofing Foreman Relationship Specialty Start Date End Date Cristiane Shirley MD [address] [place] [address] PCP - General Family Medicine 12/28/14 11/18/16 Garett Holt MD Internal Medicine-Gastroenterology 12/22/12 Ruiz Stokes MD [address] [place] [address] Internal Medicine-Cardiovascular Disease 07/25/14 documented as of this encounter
--- OUTSIDE RECORDS SUMMARY | 2024-07-22 16:17 | XMS_ITS | Encounter Summary ---
Author Organization [place] [address] Care Team Providers Care Emergency Department Rn Name Role Phone Garett Holt MD Unavailable [phone] Kate Bai DO Primary Care Provider Unavailable Ruiz Stokes MD Unavailable [phone] Reason for Visit * Reason Onset Date Comments Medication Refill 08/19/2014 Encounter Details Date Type Department Care Team (Late st Contact Info) Description 08/19/2014 Refill [facility] [address] [address] Kate Bai DO Medication Refill Social History Tobacco Use Types [...] End Date metFORMIN (GLUCOPHAGE) 500 mg Oral TabletIndications:D iabetes mellitus (HCC) Take 1 Tab by mouth daily (with breakfast). 90 Tab 1 08/19/2014 10/03/2014 omeprazole (PRILOSEC) 20 mg Oral Capsule, Delayed Release(E.C.)Indica tions:GERD (gastroesophageal reflux disease) Take 1 Cap by mouth 2 times daily (before meals). 180 Tab 1 08/19/2014 05/21/2016 potassium chloride SA (K-DUR;KLOR-CON) 20 mEq Oral Tab Sust.Rel. Particle/CrystalInd ications:Esophageal reflux,Osteoarthros is, unspecified whether generalized or localized, unspecified site,Dysphagia,Leg pain, right,SOB (shortness of breath),HAMIDA (obstructive sleep apnea) Take 1 Tab by mouth daily. 90 Tab 1 08/19/2014 05/08/2015 fUROsemide (LASIX) 40 mg Oral TabletIndications:E sophageal reflux,Osteoarthros is, unspecified whether generalized or localized, unspecified site,Dysphagia,Leg pain, right,SOB (shortness of breath),HAMIDA (obstructive sleep apnea) Take 1 Tab by mouth daily. 90 Tab 1 08/19/2014 05/08/2015 simvastatin (ZOCOR) 10 mg Oral TabletIndications:H yperlipidemia Take 1 Tab by mouth every evening. 90 Tab 3 08/19/2014 10/03/2014 documented in this encounter Miscellaneous Notes * Telephone Encounter - Luzmaria Hogan LPN - 08/19/2014 1:20 PM ESTFrom: Alyssa Jamil To: Kate Bai DO Sent: 08/19/2014 1:15 PM EST Subject: Medication Renewal Request Original authorizing provider: DO Alyssa Celestin would like a refill of the following medications: simvastatin (ZOCOR) 10 mg Oral Tablet [Kate Bai DO] fUROsemide (LASIX) 40 mg Oral Tablet [Kate Bai DO] potassium chloride SA (K-DUR;KLOR-CON) 20 mEq Oral Tab Sust.Rel. Particle/Crystal [Kate Bai DO] omeprazole (PRILOSEC) 20 mg Oral Capsule, Delayed Release(E.C.) [Kate Bai DO] metFORMIN (GLUCOPHAGE) 500 mg Oral Tablet [Kate Bai DO] Preferred pharmacy: [place] [address] [address] [facility] - [phone] Comment: documented in this encounter Plan of Treatment Upcoming Encounters Date Type Department Care Team (Late st Contact Info) Description 07/29/2024 9:00 AM EST Appointment [facility] [address] [place] [address] Jomar Kim MD [address] [place] [address] documented as of this encounter Visit Diagnoses Diagnosis Hyperlipidemia Other and unspecified hyperlipidemia Esophageal reflux Osteoarthrosis, unspecified whether generalized or localized, unspecified site Dysphagia Dysphagia, unspecified Leg pain, right Pain in limb SOB (shortness of breath) Shortness of breath HAMIDA (obstructive sleep apnea) Obstructive sleep apnea (adult) (pediatric) GERD (gastroesophageal reflux disease) Esophageal reflux Diabetes mellitus (HCC) Type II or unspecified type diabetes mellitus without mention of complication, not stated as uncontrolled documented in this encounter Discontinued Medications Medication Sig Discontinue Reason Start Date End Da te simvastatin (ZOCOR) 10 mg Oral TabletIndications:Hyperl ipidemia Take 1 tablet by mouth every evening. Reorder 05/31/2014 08/19/2014 fUROsemide (LASIX) 40 mg Oral TabletIndications:Esopha geal reflux,Osteoarthrosis, unspecified whether generalized or localized, unspecified site,Dysphagia,Leg pain, right,SOB (shortness of breath),HAMIDA (obstructive sleep apnea) Take 1 tablet by mouth daily. Reorder 05/31/2014 08/19/2014 potassium chloride SA (K-DUR;KLOR-CON) 20 mEq Oral Tab Sust.Rel. Particle/CrystalIndicati ons:Esophageal reflux,Osteoarthrosis, unspecified whether generalized or localized, unspecified site,Dysphagia,Leg pain, right,SOB (shortness of breath),HAMIDA (obstructive sleep apnea) Take 1 tablet by mouth daily. Reorder 05/31/2014 08/19/2014 omeprazole (PRILOSEC) 20 mg Oral Capsule, Delayed Release(E.C.)Indications :GERD (gastroesophageal reflux disease) Take 1 capsule by mouth 2 times daily (before meals). Reorder 05/31/2014 08/19/2014 metFORMIN (GLUCOPHAGE) 500 mg Oral TabletIndications:Diabet es mellitus (HCC) Take 1 tablet by mouth daily (with breakfast). Reorder 06/01/2014 08/19/2014 documented as of this encounter Care Teams Emergency Department Rn Relationship Specialty Start Date End Date Kate Bai DO PCP - General Internal Medicine 05/31/14 10/02/14 Garett Holt MD Internal Medicine-Gastroenterology 12/22/12 Ruiz Stokes MD [address] [place] [address] Internal Medicine-Cardiovascular Disease 07/25/14 documented as of this encounter
--- OUTSIDE RECORDS SUMMARY | 2024-07-22 16:17 | XMS_ITS | Encounter Summary ---
Author Organization [place] [address] Care Team Providers Care Senior Medical Technologist Name Role Phone Garett Holt MD Unavailable [phone] Kate Bai DO Primary Care Provider Unavailable Ruiz Stokes MD Unavailable [phone] Reason for Referral * Consultation (Routine) - Closed Specialty Diagnoses / Procedures Referred By Ron bansal Referred To Contact Obstetrics and Gynecology Diagnoses Cervical cancer screening Kate Bai DO Referral ID Status Reason Start Date Expiration Date Visits Re quested Visits Authorized [id number] Closed 08/23/2014 08/23/2015 1 1 Reason for Visit * Reason Comments Follow-up pain in legs Encounter Details Date Type Department Care Team (Late st Contact Info) Description 08/23/2014 10:30 AM EST Office Visit [address] [address] Kate Bai DO HTN (hypertension) (Primary Dx); Arthritis; Cervical cancer screening; Breast cancer screening Social History Tobacco Use Types Packs/Day Years [...] Sign Reading Time Taken Comments Blood Pressure 152/92 08/23/2014 10:56 AM EST Pulse 64 08/23/2014 10:56 AM EST Temperature 36.4 ??C (97.6 ??F) 08/23/2014 10:[address] Respiratory Rate - - Oxygen Saturation 99% 08/23/2014 10:56 AM EST Inhaled Oxygen Concentration - - Weight 123.8 kg (273 lb) 08/23/2014 10:56 AM EST Height 162.6 cm (5' 4 ) 08/23/2014 10:56 AM EST Body Mass Index 46.86 08/23/2014 10:56 AM EST documented in this encounter Ordered Prescriptions Prescription Sig Dispense Quantity Refills Last Filled Start Date End Date lisinopril (PRINIVIL;ZESTRIL) 10 mg Oral TabletIndications:H TN (hypertension) Take 1 Tab by mouth daily. 30 Tab 0 08/23/2014 09/13/2014 documented in this encounter Progress Notes * Kate Bai, DO - 08/23/2014 10:59 AM EST Subjective: Patient ID: Alyssa Jamil is a 59 y.o. female. HPI Chief Complaint Patient presents with ??? Follow-up pain in legs Patient here for 3 month check up. Patient having pain in both legs. More on the right leg. Pt has lost 6 pounds. Discussed labs at length. Pt states tylenol helping her arthritis in her knees. BP still high. Pt to start rx and return in 2 weeks for recheck and repeat labs. A1c still borderline. Further counseling on weight loss. Patients past medical, family and social histories were reviewed and updated. There were no changesexcept as noted. Past Medical History Diagnosis Date ??? Shortness of breath ??? Asthma ??? Other and unspecified angina pectoris ??? Heartburn nausea after eating ??? Ulcer ??? Arthritis all over ??? 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 Diabetes mellitus borderline ??? Anemia on iron Past Surgical History Procedure Laterality Date ??? Cholecystectomy ??? Colonoscopy ??? Upper gastrointestinal endoscopy ??? Upper gastrointestinal endoscopy 02/17/2013 Surgeon: Garett Holt MD; Location: [facility]; Service: ??? Colonoscopy 02/17/2013 Surgeon: Garett Holt MD; Location: [facility]; Service: Allergies Allergen Reactions ??? No Known Allergies Current Outpatient Rx Name Route Sig Dispense Refill ??? simvastatin (ZOCOR) 10 mg Oral Tablet Oral Take 1 Tab by mouth every evening. 90 Tab 3 refill request ??? fUROsemide (LASIX) 40 mg Oral Tablet Oral Take 1 Tab by mouth daily. 90 Tab 1 ??? potassium chloride SA (K-DUR;KLOR-CON) 20 mEq Oral Tab Sust.Rel. Particle/Crystal Oral Take 1 Tab by mouth daily. 90 Tab 1 ??? omeprazole (PRILOSEC) 20 mg Oral Capsule, Delayed Release(E.C.) Oral Take 1 Cap by mouth 2 times daily (before meals). 180 Tab 1 ??? metFORMIN (GLUCOPHAGE) 500 mg Oral Tablet Oral Take 1 Tab by mouth daily (with breakfast). 90 Tab 1 ??? polyethylene glycol (GLYCOLAX) 17 gram/dose Oral Powder Oral Take 17 g by mouth 2 times daily. 510 g 2 ??? ergocalciferol (VITAMIN D) 50,000 unit Oral Capsule Oral Take 1 capsule by mouth once a week. 12 capsule 3 ??? iron polysaccharides (FERREX 150 FORTE PLUS) 150-60-25-1 rl-hs-aeb-mg Oral Capsule Oral Take 1 capsule by [...] by mouth daily. 100 Tab 4 ??? naproxen sodium (ANAPROX) 220 mg tablet Oral Take 1 Tab by mouth as needed. 90 Tab 1 ??? lisinopril (PRINIVIL;ZESTRIL) 10 mg Oral Tablet Oral Take 1 Tab by mouth daily. 30 Tab 0 Social History Social History ??? Marital Status: Spouse Name: N/A Number of Children: 2 ??? Years of Education: N/A Occupational History ??? disabled Social History Main Topics ??? Smoking status: Former Smoker ??? Smokeless tobacco: Never Used ??? Alcohol Use: No ??? Drug Use: Not on file ??? Sexual Activity: Not on file Other Topics Concern ??? Not on file Social History Narrative Family History Problem Relation Age of Onset ??? Heart Disease Father ??? Cataracts Father ??? Diabetes Father ??? Cancer Maternal Grandmother ??? Colon Cancer Maternal Grandmother Immunization History Administered Date(s) Administered ??? Tdap 01/06/2013 Health Maintenance Due Topic Date Due ??? CERVICAL CANCER SCREENING 09/08/2011 ??? Influenza Vaccine (##1 of 1) 04/08/2014 ??? BREAST CANCER SCREENING 07/08/2014 Medications are accurate. Review of Systems Constitutional: Positive for fatigue. Negative for fever and chills. Respiratory: Negative for cough and wheezing. Gastrointestinal: Negative for nausea and vomiting. Musculoskeletal: Positive for back pain. Objective: Filed Vitals: 08/23/14 1056 BP: 152/92 Pulse: 64 Temp: 97.6 ??F (36.4 ??C) TempSrc: Oral Height: 5' 4 (1.626 m) Weight: 273 lb (123.832 kg) SpO2: 99% Body mass index is 46.84 kg/(m^2). Physical Exam Constitutional: She is well-developed, well-nourished, and in no distress. Obese. HENT: Head: Normocephalic and atraumatic. Right Ear: External ear normal. TM normal Left Ear: External ear normal. TM normal Nose: Nose normal. Mouth/Throat: Oropharynx is clear and moist. No oropharyngeal exudate. Poor dentition Eyes: EOMI. Pupils are equal, round, and reactive to light. No discharge. No scleral icterus. Neck: Normal range of motion. Neck supple. No tracheal deviation present. No thyromegaly present. Cardiovascular: distant, Normal rate, regular rhythm and normal heart sounds. Exam reveals no gallop and no friction rub. Pulmonary/Chest: Effort normal. No stridor. No respiratory distress. She has no wheezes. She has george. She exhibits no tenderness. Abdominal: Soft. Obese. She exhibits no distension and no mass. There is no tenderness. There is norebound and no guarding. Musculoskeletal: She exhibits no edema. Lymphadenopathy: She has no cervical adenopathy. Neurological: She is alert. She has normal reflexes. Cranial nerves 2-12 grossly intact. She exhibits normal muscle tone. Coordination normal. Skin: Skin is warm and dry. She is not diaphoretic. No erythema. No pallor. Psychiatric: Mood, affect and judgment normal. Assessment and Plan: Alyssa was seen today for follow-up. Diagnoses and associated orders for this visit: HTN (hypertension) - lisinopril (PRINIVIL;ZESTRIL) 10 mg Oral Tablet; Take 1 Tab by mouth daily. Arthritis Cervical cancer screening - Gynecology Breast cancer screening - Mammography digital screening with CAD bilat; Future Pt instructed to continue weight loss. Pt to make screening appointments as ordered and referred. Return in about 3 weeks (around 09/13/2014). Scribed by Wendi Pérez documented in this encounter Plan of Treatment Upcoming Encounters Date Type Department Care Team (Late st Contact Info) Description 07/29/2024 9:00 AM EST Appointment [facility] [address] [place] [address] Jomar Kim MD [address] [place] [address] Scheduled Referrals Name Type Priority Associated Diagnoses Order Schedule AMB REFERRAL TO GYNECOLOGY Outpatient Referral Routine Cervical cancer screening Ordered: 08/23/2014 documented as of this encounter Visit Diagnoses Diagnosis HTN (hypertension)- Primary Unspecified essential hypertension Arthritis Arthropathy, unspecified, site unspecified Cervical cancer screening Screening for malignant neoplasm of the cervix Breast cancer screening Breast screening, unspecified documented in this encounter Care Teams Senior Medical Technologist Relationship Specialty Start Date End Date Kate Bai DO PCP - General Internal Medicine 05/31/14 10/02/14 Garett Holt MD Internal Medicine-Gastroenterology 12/22/12 Ruiz Stokes MD [address] [place] [address] Internal Medicine-Cardiovascular Disease 07/25/14 documented as of this encounter
--- OUTSIDE RECORDS SUMMARY | 2024-07-22 16:17 | XMS_ITS | Encounter Summary ---
Author Organization [place] [address] Care Team Providers Care Construction Administrator Name Role Phone Garett Holt MD Unavailable [phone] Ruiz Stokes MD Unavailable [phone] Annalise Oneill MD Primary Care Provider [phone] Encounter Details Date Type Department Care Team (Late st Contact Info) Description 10/03/2014 Orders Only [facility] [address] [place] [address] Nanda Huitron LPN [address] [place] [address] HTN (hypertension) (Primary Dx) Social History Tobacco Use Types [...] 10 mg Oral TabletIndications:H TN (hypertension) Take 2 Tabs by mouth daily. 60 Tab 5 10/03/2014 03/15/2015 documented in this encounter Plan of Treatment Upcoming Encounters Date Type Department Care Team (Late st Contact Info) Description 07/29/2024 9:00 AM EST Appointment [facility] [address] [place] [address] Jomar Kim MD [address] [place] [address] documented as of this encounter Visit Diagnoses Diagnosis HTN (hypertension)- Primary Unspecified essential hypertension documented in this encounter Discontinued Medications Medication Sig Discontinue Reason Start Date End Da te lisinopril (PRINIVIL;ZESTRIL) 10 mg Oral TabletIndications:HTN (hypertension) Take 2 Tabs by mouth daily. Reorder 10/03/2014 10/03/2014 documented as of this encounter Care Teams Construction Administrator Relationship Specialty Start Date End Date Annalise Oneill MD [address] [facility] [place] [id number] PCP - General Family Medicine 10/03/14 12/27/14 Garett Holt MD Internal Medicine-Gastroenterology 12/22/12 Ruiz Stokes MD [address] [place] [address] Internal Medicine-Cardiovascular Disease 07/25/14 documented as of this encounter
--- OUTSIDE RECORDS SUMMARY | 2024-07-22 16:17 | XMS_ITS | Encounter Summary ---
Author Organization [place] [address] Care Team Providers Care Regional Account Executive Name Role Phone Garett Holt MD Unavailable [phone] Ruiz Stokes MD Unavailable [phone] Cristiane Shirley MD Primary Care Provider [phone] Reason for Visit * Reason Onset Date Comments Results 03/30/2015 Encounter Details Date Type Department Care Team (Late st Contact Info) Description 03/30/2015 Telephone [facility] [address] [place] [address] Gianni Giron MD [address] [place] [address] Results Social History Tobacco Use Types Packs/Day Years [...] encounter Miscellaneous Notes * Telephone Encounter - Gianni Giron MD - 03/30/2015 5:18 PM EDT Biopsy result shows an area of endometrial hyperplasia. Ms. Jamil given results by phone. [facility] for [facility] care. * Telephone Encounter - Gianni Giron MD - 03/30/2015 5:17 PM EDT ----- Message from MULU Jacobsen sent at 03/30/2015 10:05 AM EDT ----- ----- Message ----- From: Christian Petersen In [facility] Sent: 03/29/2015 9:56 AM To: [facility]Clinical documented in this encounter Plan of Treatment Upcoming Encounters Date Type Department Care Team (Late st Contact Info) Description 07/29/2024 9:00 AM EST Appointment [facility] [address] [place], [place] [address] Jomar Kim MD [address] [place], [place] [id number] documented as of this encounter Visit Diagnoses Not on filedocumented in this encounter Care Teams Regional Account Executive Relationship Specialty Start Date End Date Cristiane Shirley MD [address] [place] [address] PCP - General Family Medicine 12/28/14 11/18/16 Garett Holt MD Internal Medicine-Gastroenterology 12/22/12 Ruiz Stokes MD [address] [place] [address] Internal Medicine-Cardiovascular Disease 07/25/14 documented as of this encounter
--- OUTSIDE RECORDS SUMMARY | 2024-07-22 16:17 | XMS_ITS | Encounter Summary ---
Author Organization [place] [address] Care Team Providers Care Security Auditor Name Role Phone Garett Holt MD Unavailable [phone] Kate Bai DO Primary Care Provider Unavailable Ruiz Stokes MD Unavailable [phone] Reason for Referral * GI Procedure (Routine) - Closed Specialty Diagnoses / Procedures Referred By Ron bansal Referred To Contact Internal Medicine-Gastroenterol ogy / General Surgery Diagnoses Dysphagia Procedures AMB EGD COMM ORDER Rad Pang MD Phone: tel: fax: Rad Pang MD Phone: tel: fax: Referral ID Status Reason Start Date Expiration Date Visits Re quested Visits Authorized [id number] Closed 08/02/2014 08/02/2015 1 1 Reason for Visit * Reason Comments Abdominal Pain est ca pt Constipation Melena * Consultation (Routine) - Closed Specialty Diagnoses / Procedures Referred By Contact Referred To Contact Internal Medicine-Gastroenterology / Gastroenterology Diagnoses Abdominal pain, chronic, epigastric Kate Bai DO Schussler, Thomas, MD Phone: tel:[phone] fax:[phone] Referral ID Status Reason Start Date Expiration Date Visits Re quested Visits Authorized [id number] Closed 05/31/2014 05/31/2015 12 12 Encounter Details Date Type Department Care Team (Late st Contact Info) Description 08/02/2014 1:15 PM EST Office Visit SE[facility] Gastro [facility] [address] [facility] [address] [place] [address] [place] [address] [place] [id number] Constipation (Primary Dx); Dysphagia; H. pylori infection Social History Tobacco Use [...] Sign Reading Time Taken Comments Blood Pressure 151/80 08/02/2014 1:35 PM EST Pulse 85 08/02/2014 1:35 PM EST Temperature - - Respiratory Rate - - Oxygen Saturation - - Inhaled Oxygen Concentration - - Weight 126.9 kg (279 lb 12.8 oz) 08/02/2014 1:35 PM EST Height 162.6 cm (5' 4 ) 08/02/2014 1:35 PM EST Body Mass Index 48.03 08/02/2014 1:35 PM EST documented in this encounter Ordered Prescriptions Prescription Sig Dispense Quantity Refills Last Filled Start Date End Date polyethylene glycol (GLYCOLAX) 17 gram/dose Oral PowderIndications:C onstipation Take 17 g by mouth 2 times daily. 510 g 2 08/02/2014 07/09/2016 documented in this encounter Progress Notes * Rad Pang MD - 08/06/2014 8:37 AM EST [address] [place] [address] CHIEF COMPLAINT Chief Complaint Patient presents with ??? Abdominal Pain est ca pt ??? Constipation ??? Melena HPI Thank you Kate Bai DO for asking me to see Alyssa Campos in consultation. She is a 59 y.o. .female seen independently who presents with the following GI complaints: Mrs. Campos was accidentally scheduled with me today. [place] to return to [place]. She complains of constipation and blood in her stool. She had h pylori on egd last year and completed a course of treatment. Eradication was not confirmed. There is persistent dysphagia. Her esophagus was not previously dilated. She is on asa and prilosec. Last Encounter Reviewed: 12/22/12 [place] Alyssa Campos is a(n) 57 y.o. female referred to GI for evaluation of multiple GI problems including reflux symptoms, dysphagia, CRC screening and chronic anemia. Patient notes worsening dysphagia to solid foods. She is not sure if its because she has poor dentition or because something is stuck inside. However she denies any hx of food impaction, but has to chew for long periods and drink lots fluid to flush food down. Also notes long history fo reflux symptoms, with acid regurgitation. She takes prilosec which helps the symptoms somewhat. Also takes NSAIDs to ameliorate her arthralgia symptoms. She was recently told that she was anemic based on routine labs test. FOBT was done, r esults were negative. She has een started on Fe supplementation, and has noted her stools are dark now. No prior hx of colonoscopy or fmh of colon polyp or cancer. She describes occasional episodes of bloating and periumbilical cramps soon after meals. Pertinent PMH, FH, SH is reviewed below. Last EGD/Colonoscopy: 02/17/13 gastric erythrema/h pylori positive gastritis, otherwise both normal Lab Results Component Value Date SURGICALPATH Value: PATIENT NAME:ALYSSA CAMPOS Surgical Pathology Report Accession Number Collected Date/Time Received Date/Time [id number] 02/17/13 10:05 EDT 02/18/13 07:21 EDT Diagnosis Gastric antrum, biopsy: - H pylori positive marked chronic active gastritis. - Negative for dysplasia or malignancy. KALEB CABRAL MD (Electronically signed by) Verified: 02/18/2013 [facility] Clinical Information Esophageal reflux [530.81]Anemia, unspecified [285.9]Dysphagia, unspecified [787.20]. Gastric redness Gross Description Received in formalin labeled with the patient s name and gastric antrum are six fragments of trunog tissue ranging from less than 0.1 to 0.4 cm in greatest dimen juan pablo. Entirely submitted in one cassette. /[place] KM /CT Microscopic Description Microscopic examination is performed and the findings corroborate the diagnosis. 02/17/2013 Health Maintenance Topic Date Due ??? Cervical Cancer Screening 09/08/2011 ??? Colon Cancer Screening Occult Blood 02/17/2014 ??? Breast Cancer Screening 07/08/2014 ??? Influenza Vaccine 04/08/2015 ??? Annual Wellness Exam 05/31/2015 ??? Colon Cancer Screening Colonoscopy 02/17/2023 PAST MEDICAL HISTORY Past Medical History Diagnosis Date ??? Shortness of breath ??? Asthma ??? Other and unspecified angina pectoris ??? Heartburn nausea after eating ??? Ulcer ??? Arthritis all over ??? 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 Diabetes mellitus borderline ??? Anemia on iron FAMILY HISTORY [...] Narrative ??? None SURGICAL HISTORY Past Surgical History Procedure Laterality Date ??? Cholecystectomy ??? Colonoscopy ??? Upper gastrointestinal endoscopy ??? Upper gastrointestinal endoscopy 02/17/2013 Surgeon: Garett Holt MD; Location: [facility]; Service: ??? Colonoscopy 02/17/2013 Surgeon: Garett Holt MD; Location: [facility]; Service: CURRENT MEDICATIONS (This list may include medications prescribed during this encounter as epic can not insert only thelist prior to this encounter.) Current Outpatient Rx Name Route Sig Dispense Refill ??? metFORMIN (GLUCOPHAGE) 500 mg Oral Tablet Oral Take 1 tablet by mouth daily (with breakfast). 30 tablet 2 ??? simvastatin (ZOCOR) 10 mg Oral Tablet Oral Take 1 tablet by mouth every evening. 90 tablet 3 refill request ??? ergocalciferol (VITAMIN D) 50,000 unit Oral Capsule Oral Take 1 capsule by mouth once a week. 12 capsule 3 ??? fUROsemide (LASIX) 40 mg Oral Tablet Oral Take 1 tablet by mouth daily. 30 tablet 6 ??? potassium chloride SA (K-DUR;KLOR-CON) 20 mEq Oral Tab Sust.Rel. Particle/Crystal Oral Take 1 tablet by mouth daily. 30 tablet 6 ??? omeprazole (PRILOSEC) 20 mg Oral Capsule, Delayed Release(E.C.) Oral Take 1 capsule by mouth 2 times daily (before meals). 60 tablet 0 ??? iron polysaccharides (FERREX 150 FORTE PLUS) 150-60-25-1 jk-kp-mlf-mg Oral Capsule Oral Take 1 capsule by [...] mouth as needed. 90 Tab 1 ??? polyethylene glycol (GLYCOLAX) 17 gram/dose Oral Powder Oral Take 17 g by mouth 2 times daily. 510 g 2 ALLERGIES Allergies Allergen Reactions ??? No Known Allergies IMMUNIZATIONS Immunization History Administered Date(s) Administered ??? Tdap 01/06/2013 REVIEW OF SYSTEMS See HPI for further details and pertinent postiives. Negative for the following: Constitutional: Negative for weight change. Negative for appetite change and fatigue. HENT: Negative for nosebleeds, sore throat, mouth sores, and voice change. Respiratory: Negative for cough, choking and chest tightness. Cardiovascular: Negative for chest pain Gastrointestinal: See HPI Musculoskeletal: Negative for arthralgias. Skin: Negative for pallor. Neurological: Negative for weakness and light-headedness. Hematological: Negative for adenopathy. Does not bruise/bleed easily. Psychiatric/Behavioral: Negative for suicidal ideas. PHYSICAL EXAM VITAL SIGNS: BP 151/80 Pulse 85 Ht 5' 4 (1.626 m) Wt 279 lb 12.8 oz (126.916 kg) BMI 48 kg/m2 Wt Readings from Last 3 Encounters: 08/02/14 279 lb 12.8 oz (126.916 kg) 05/31/14 280 lb (127.007 kg) 04/25/14 276 lb (125.193 kg) Constitutional: Well developed, Well nourished, No acute distress, Non-toxic appearance. HENT: Normocephalic, Atraumatic, Bilateral external ears normal, Oropharynx moist, No oral exudates, Nose normal. Eyes: Conjunctiva normal, No discharge. Neck: Normal range of motion, No tenderness, Supple, No stridor. Lymphatic: No lymphadenopathy noted. Cardiovascular: Normal heart rate, Normal rhythm, No murmurs, No rubs, No gallops. Thorax & Lungs: Normal breath sounds, No respiratory distress, No wheezing, No chest tenderness. Abdomen: scars consistent with stated surgeries, Soft NTND Rectal: Deferred. Skin: Warm, Dry, No erythema, No rash. Back: No tenderness, No CVA tenderness. Extremities: Intact distal pulses, No edema, No tenderness, No cyanosis, No clubbing. Neurologic: Alert & oriented x 3, Normal motor function, Normal sensory function, No focal deficits noted. 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 There is no effusion or pneumothorax. There is atherosclerosis of the aorta. Otherwise the heart and mediastinum are normal. There is mild scarring in the periphery of the mid left lung. There is no failure mass or pneumonia. Impression IMPRESSION: Mild scarring in the periphery of the left midlung. Hager Last abd 4 way: No results found for this or any previous visit. Last CT abd pelvis w contrast: No results found for this or any previous visit. Last CT abd pelvis wo contrast: No results found for this or any previous visit. Last CT chest abd pelvis w contrast: No results found for this or any previous visit. Last CT chest abd pelvis wo contrast:No results found for this or any previous visit. Last US: No results found for this or any previous visit. Last HIDA: No results found for this or any previous visit. Last MRCP: No results found for this or any previous visit. Last GES: No results found for this or any previous visit. Last NM bleeding scan: No results found for this or any previous visit. Last Barium swallow: No results found for this or any previous visit. Last UGI: No results found for this or any previous visit. Last SBFT: No results found for this or any previous visit. Last UGI w SBFT: Last pelvic/transvaginal US: No results found for this or any previous visit. Last pelvic US: No results found for this or any previous visit. Last US with dopplers: No results found for this or any previous visit. Last MRI pituitary: No results found for this or any previous visit. Last bone DEXA scan: No results found for this or any previous visit. COURSE & MEDICAL DECISION MAKING (See epic chart for additional details including stool tests, total bilirubin, viral loads, procedures, and pathology) Lab Results Component Value Date WBC 10.9 04/02/2014 HGB 12.0 04/02/2014 HCT 36.3 04/02/2014 PLT 243 04/02/2014 CHOLESTEROL 198 01/02/2014 TRIG 120 01/02/2014 HDL 49 01/02/2014 LDLCALC 125* 01/02/2014 ALT 21 05/31/2014 AST 16 05/31/2014 NA 142 07/23/2014 K 4.2 07/23/2014 CL 102 07/23/2014 CREATININE 0.72 07/23/2014 BUN 7 07/23/2014 CO2 30* 07/23/2014 GLUCOSE 98 05/17/2013 GLU 107* 07/23/2014 HGBA1C 6.1 07/23/2014 MICROALBUR negative 05/13/2013 TSHREFLEX 2.130 05/31/2014 Lab Results Component Value Date BILIDIR <0.2 05/31/2014 BILIDIR <0.2 04/02/2014 No results found for this basename: PTH, CA, CAION, PHOS Lab Results Component Value Date LABALBU 4.0 05/31/2014 PROT 7.7 05/31/2014 ALKPHOS 79 05/31/2014 ALT 21 05/31/2014 AST 16 05/31/2014 BILIDIR <0.2 05/31/2014 LABBILI 0.2 05/31/2014 LABBILI 0.1 06/22/2012 LABBILI 0.1* 06/22/2012 Lab Results Component Value Date LIPASE 38 04/02/2014 LIPASE 14 07/27/2009 No results found for this basename: AMYLASE No results found for this basename: INR, PROTIME No results found for this basename: SMOOTHMUSCAB, MITOAB No results found for this basename: TIERRA No results found for this basename: HAV, HEPAIGM, HEPBIGM, HEPBCAB, HBEAG, HEPCAB No results found for this basename: HCVRNAQ, HCVLOG, HCVGENOTYPE No results found for this basename: HEPBDNA, HEPBCOP No results found for this basename: HIV1X2 No results found for this basename: ceruloplsm No components found with this basename: [id number] Lab Results Component Value Date IRON 47 12/22/2012 TIBC 327 12/22/2012 FERRITIN 67 12/22/2012 No results found for this basename: SEDRATE No results found for this basename: CRP No results found for this basename: [id number] No results found for this basename: FOLATE Lab Results Component Value Date [id number] 23.7* 05/31/2014 Lab Results Component Value Date OCCULTBLD Neg 12/15/2012 OCCULTBLD negative 12/09/2012 No components found with this basename: IGAARUP, TTGIGAARUP No components found with this basename: Cortisol Baseline No results found for this basename: [id number] No results found for this basename: [id number] No results found for this basename: IGE, EGGWHITE, MILKCOWS, CORN, SOYBEAN, WHEAT, PEANUT, WALNUT, CLAMS, CODFISHARUP, SCAL, SHRIMP No results found for this basename: GASTRIN No results found for this basename: CALCITONIN Lab Results Component Value Date CHOLESTEROL 198 01/02/2014 CHOLESTEROL 202* 05/17/2013 CHOLESTEROL 201* 03/25/2013 Lab Results Component Value Date HDL 49 01/02/2014 HDL 56 05/17/2013 HDL 58 03/25/2013 Lab Results Component Value Date LDLCALC 125* 01/02/2014 Lab Results Component Value Date TRIG 120 01/02/2014 TRIG 75 05/17/2013 TRIG 95 03/25/2013 No results found for this basename: CHOLHDL No results found for this basename: NORMETANEPHR, METANEPHRINE No results found for this basename: CHROMGRNA No results found for this basename: HPYLORIIGG No results found for this basename: AMMONIA No results found for this basename: AFP, AFPTM No results found for this basename: CEA FINAL IMPRESSION If lab cancelled and reordered below indicates that location of lab order changed Orders Placed This Encounter Procedures ??? Helicobacter pylori Antigen, Stool Standing Status: Future Number of Occurrences: Standing Expiration Date: 08/02/2015 ??? EGD Comm Order Alyssa was seen today for abdominal pain, constipation and melena. Diagnoses and associated orders for this visit: Constipation - polyethylene glycol (GLYCOLAX) 17 gram/dose Oral Powder; Take 17 g by mouth 2 times daily. Dysphagia - EGD Comm Order H. pylori infection - Helicobacter pylori Antigen, Stool; Future ORDERED FUTURE/PENDINGTESTS Lab Frequency Next Occurrence NM MYOCARDIAL PERFUSION SPECT STRESS AND REST Once 01/05/2014 FOLLOWUP Return for EGD. Electronically signed by: Rad Pang MD, 08/06/2014 8:37 AM documented in this encounter Miscellaneous Notes * Patient Instructions - Sharon Gilmore, CYRUSA - 08/02/2014 1:37 PM EST You may be contacted by mail or e-mail to participate in a patient satisfaction survey regarding your office visit today. We value your opinion and depend on your feedback to make improvements and provide you with the best possible experience while receiving high quality medical treatment. Your time in completing this survey is greatly appreciated. CONSTIPATION OVERVIEW -- Constipation refers to a change in bowel habits, but it has varied meanings. Stools may be too hard or too small, difficult to pass, or infrequent (less than three times per week). People with constipation may also notice a frequent need to strain and a sense that the bowels are not empty. Constipation is a very common problem. Each year more than 2.5 million Americans visit their healthcare provider for relief from this problem. Many factors can contribute to or cause constipation, although in most people, no single cause can be found. In general, constipation occurs more frequentlyas you get older. (See Etiology and evaluation of chronic constipation in adults .) CONSTIPATION DIAGNOSIS -- Constipation can usually be diagnosed based upon your symptoms and a physical examination. You should also mention any medications you take regularly since some medications can cause constipation. You may need a rectal examination as part of a physical examination. A rectal examination involves inserting a gloved finger inside the rectum to feel for any lumps or abnormalities. This test can also check for blood in the stool. Further testing may be ordered in some situations, for example, if you have had a recent change in bowel habits, blood in the stool, weight loss, or a family history of colon cancer. Testing may include blood tests, x-rays, sigmoidoscopy, colonoscopy, or more specialized testing if needed. (See Patient information: Flexible sigmoidoscopy and Patient information: Colonoscopy .) When to seek help -- Most people can treat constipation at home, without seeing a healthcare provider. However, you should speak with a healthcare provider if the problem: Is new (ie, represents a change in your normal pattern) Lasts longer than three weeks Is severe Is associated with any other concerning features such as blood on the toilet paper, weight loss, fevers, or weakness. CONSTIPATION TREATMENT -- Treatment for constipation includes changing some behaviors, eating foodshigh in fiber, and using laxatives or enemas if needed. You can try these treatments at home, before seeing a healthcare provider. However, if you do not have a bowel movement within a few days, you should call your healthcare provider for further assistance. (See Management of chronic constipation in adults .) Behavior changes -- The bowels are most active following meals, and this is often the time when stools will pass most readily. If you ignore your body's signals to have a bowel movement, the signals become weaker and weaker over time. By paying close attention to these signals, you may have an easier time moving your bowels. Drinking a caffeine-containing beverage in the morning may also be helpful. Increase fiber -- Increasing fiber in your diet may reduce or eliminate constipation. The recommended amount of dietary fiber is 20 to 35 grams of fiber per day. By reading the product information panel on the side of the package, you can determine the number of grams of fiber per serving (figure 1). Many fruits and vegetables can be particularly helpful in preventing and treating constipation (table 1). This is especially true of citrus fruits, prunes, and prune juice. Some breakfast cereals arealso an excellent source of dietary fiber. (See Patient information: High fiber diet .) Fiber side effects -- Consuming large amounts of fiber can cause abdominal bloating or gas; this can be minimized by starting with a small amount and slowly increasing until stools become softer and more frequent. LAXATIVES -- If behavior changes and increasing fiber does not relieve your constipation, you may try taking a laxative. A variety of laxatives are available for treating constipation. The choice between them is based upon how they work, how safe the treatment is, and your healthcare provider's pref erences. In general, laxatives can be categorized into the following groups: Bulk forming laxatives -- These include natural fiber and commercial fiber preparations such as: Psyllium (Konsyl??; Metamucil??; Perdiem??) Methylcellulose (Citrucel??) Calcium polycarbophil (FiberCon??; Fiber-Lax??; Mitrolan??). Wheat dextrin (Benefiber??) You should increase the dose of fiber supplements slowly to prevent gas and cramping, and you should always take the supplement with plenty of fluid. Hyperosmolar laxatives -- Hyperosmolar laxatives include: Polyethylene glycol (MiraLax??, Glycolax??) Lactulose Sorbitol Polyethylene glycol is generally preferred since it does not cause gas or bloating and is availablein the [place] without a prescription. Lactulose and sorbitol can produce gas and bloating. Sorbitol works as well as lactulose and is much less expensive. Saline laxatives -- Saline laxatives such as magnesium hydroxide (Milk of Magnesia??) and magnesiumcitrate (Evac-Q-Mag??) act similarly to the hyperosmolar laxatives. Stimulant laxatives -- Stimulant laxatives include senna (eg, Black Draught, ex- lax??, Asencio's??Castoria??, Senokot??) and bisacodyl (eg, Correctol??, Doxidan??, Dulcolax??). Some people overuse stimulant laxatives. Taking stimulant laxatives regularly or in large amounts can cause side effects, including low potassium levels. Thus, you should take these drugs carefully if you must use them regularly. However, there is no convincing evidence that using stimulant laxatives regularly damages the colon, and they do not increase the risk for colorectal cancer or other tumors. New treatments -- Lubiprostone (Amitiza??) is a prescription medication that treats severe constipation. It is expensive compared to other agents. However, it may be recommended if you do not respondto other treatments. Pills, suppositories, or enemas? -- Laxatives are available as pills that you take by mouth or as suppositories or enemas that you insert into the rectum. In general, suppositories and enemas work more quickly compared to pills, but many people do not like using them. Healthcare providers occasionally recommend prepackaged enema kits containing sodium phosphate/biphosphate (Fleet??) if you have not responded to other treatments. These are not recommended if you have problems with your heart or kidneys, and should not be used more than once unless directed by your healthcare provider. Constipation treatments to avoid Emollients -- Emollient laxatives, principally mineral oil, soften stools by moisturizing them. However, other treatments have fewer risks and equal benefit. Natural products -- A wide variety of natural products are advertised for constipation. Some of them contain the active ingredients found in commercially available laxatives. However, their dose and purity may not be carefully controlled. Thus, these products are not generally recommended. A variety of home-made enema preparations have been used throughout the years, such as soapsuds, hydrogen peroxide, and household detergents. These can be extremely irritating to the lining of the intestine and should be avoided. BIOFEEDBACK FOR CONSTIPATION -- Biofeedback is a behavioral approach that may help some people withsevere chronic constipation who involuntarily squeeze (rather than relax) their muscles while having a bowel movement [1]. WHERE TO GET MORE INFORMATION -- Your healthcare provider is the best source of information for questions and concerns related to your medical problem. This article will be updated as needed every four months on our web site (www.[facility]/patients). The following organizations also provide reliable health information. National Library of Medicine (www.nlm.nih.gov/medlineplus/constipation.html, available in [employer]) National [place] on Diabetes and Digestive and Kidney Diseases (http://digestive.niddk.nih.gov/ddiseases/pubs/constipation/) [employer] (http://www.gastro.org/patient-center/digestive-conditions/constipation) [employer] (www.acg.gi.org/patients/gihealth/constipation.asp) CONSTIPATION OVERVIEW -- Constipation refers to a change in bowel habits, but it has varied meanings. Stools may be too hard or too small, difficult to pass, or infrequent (less than three times per week). People with constipation may also notice a frequent need to strain and a sense that the bowels are not empty. Constipation is a very common problem. Each year more than 2.5 million Americans visit their healthcare provider for relief from this problem. Many factors can contribute to or cause constipation, although in most people, no single cause can be found. In general, constipation occurs more frequentlyas you get older. (See Etiology and evaluation of chronic constipation in adults .) CONSTIPATION DIAGNOSIS -- Constipation can usually be diagnosed based upon your symptoms and a physical examination. You should also mention any medications you take regularly since some medications can cause constipation. You may need a rectal examination as part of a physical examination. A rectal examination involves inserting a gloved finger inside the rectum to feel for any lumps or abnormalities. This test can also check for blood in the stool. Further testing may be ordered in some situations, for example, if you have had a recent change in bowel habits, blood in the stool, weight loss, or a family history of colon cancer. Testing may include blood tests, x-rays, sigmoidoscopy, colonoscopy, or more specialized testing if needed. (See Patient information: Flexible sigmoidoscopy and Patient information: Colonoscopy .) When to seek help -- Most people can treat constipation at home, without seeing a healthcare provider. However, you should speak with a healthcare provider if the problem: Is new (ie, represents a change in your normal pattern) Lasts longer than three weeks Is severe Is associated with any other concerning features such as blood on the toilet paper, weight loss, fevers, or weakness. CONSTIPATION TREATMENT -- Treatment for constipation includes changing some behaviors, eating foodshigh in fiber, and using laxatives or enemas if needed. You can try these treatments at home, before seeing a healthcare provider. However, if you do not have a bowel movement within a few days, you should call your healthcare provider for further assistance. (See Management of chronic constipation in adults .) Behavior changes -- The bowels are most active following meals, and this is often the time when stools will pass most readily. If you ignore your body's signals to have a bowel movement, the signals become weaker and weaker over time. By paying close attention to these signals, you may have an easier time moving your bowels. Drinking a caffeine-containing beverage in the morning may also be helpful. Increase fiber -- Increasing fiber in your diet may reduce or eliminate constipation. The recommended amount of dietary fiber is 20 to 35 grams of fiber per day. By reading the product information panel on the side of the package, you can determine the number of grams of fiber per serving (figure 1). Many fruits and vegetables can be particularly helpful in preventing and treating constipation (table 1). This is especially true of citrus fruits, prunes, and prune juice. Some breakfast cereals arealso an excellent source of dietary fiber. (See Patient information: High fiber diet .) Fiber side effects -- Consuming large amounts of fiber can cause abdominal bloating or gas; this can be minimized by starting with a small amount and slowly increasing until stools become softer and more frequent. LAXATIVES -- If behavior changes and increasing fiber does not relieve your constipation, you may try taking a laxative. A variety of laxatives are available for treating constipation. The choice between them is based upon how they work, how safe the treatment is, and your healthcare provider's pref erences. In general, laxatives can be categorized into the following groups: Bulk forming laxatives -- These include natural fiber and commercial fiber preparations such as: Psyllium (Konsyl??; Metamucil??; Perdiem??) Methylcellulose (Citrucel??) Calcium polycarbophil (FiberCon??; Fiber-Lax??; Mitrolan??). Wheat dextrin (Benefiber??) You should increase the dose of fiber supplements slowly to prevent gas and cramping, and you should always take the supplement with plenty of fluid. Hyperosmolar laxatives -- Hyperosmolar laxatives include: Polyethylene glycol (MiraLax??, Glycolax??) Lactulose Sorbitol Polyethylene glycol is generally preferred since it does not cause gas or bloating and is availablein the [place] without a prescription. Lactulose and sorbitol can produce gas and bloating. Sorbitol works as well as lactulose and is much less expensive. Saline laxatives -- Saline laxatives such as magnesium hydroxide (Milk of Magnesia??) and magnesiumcitrate (Evac-Q-Mag??) act similarly to the hyperosmolar laxatives. Stimulant laxatives -- Stimulant laxatives include senna (eg, Black Draught, ex- lax??, Asencio's??Castoria??, Senokot??) and bisacodyl (eg, Correctol??, Doxidan??, Dulcolax??). Some people overuse stimulant laxatives. Taking stimulant laxatives regularly or in large amounts can cause side effects, including low potassium levels. Thus, you should take these drugs carefully if you must use them regularly. However, there is no convincing evidence that using stimulant laxatives regularly damages the colon, and they do not increase the risk for colorectal cancer or other tumors. New treatments -- Lubiprostone (Amitiza??) is a prescription medication that treats severe constipation. It is expensive compared to other agents. However, it may be recommended if you do not respondto other treatments. Pills, suppositories, or enemas? -- Laxatives are available as pills that you take by mouth or as suppositories or enemas that you insert into the rectum. In general, suppositories and enemas work more quickly compared to pills, but many people do not like using them. Healthcare providers occasionally recommend prepackaged enema kits containing sodium phosphate/biphosphate (Fleet??) if you have not responded to other treatments. These are not recommended if you have problems with your heart or kidneys, and should not be used more than once unless directed by your healthcare provider. Constipation treatments to avoid Emollients -- Emollient laxatives, principally mineral oil, soften stools by moisturizing them. However, other treatments have fewer risks and equal benefit. Natural products -- A wide variety of natural products are advertised for constipation. Some of them contain the active ingredients found in commercially available laxatives. However, their dose and purity may not be carefully controlled. Thus, these products are not generally recommended. A variety of home-made enema preparations have been used throughout the years, such as soapsuds, hydrogen peroxide, and household detergents. These can be extremely irritating to the lining of the intestine and should be avoided. BIOFEEDBACK FOR CONSTIPATION -- Biofeedback is a behavioral approach that may help some people withsevere chronic constipation who involuntarily squeeze (rather than relax) their muscles while having a bowel movement [1]. WHERE TO GET MORE INFORMATION -- Your healthcare provider is the best source of information for questions and concerns related to your medical problem. This article will be updated as needed every four months on our web site ([email or web address]). Related topics for patients, as well as selected articles written for healthcare professionals, arealso available. Some of the most relevant are listed below. The following organizations also provide reliable health information. National Library of Medicine (www.nlm.nih.gov/medlineplus/constipation.html, available in [employer]) National [place] on Diabetes and Digestive and Kidney Diseases (http://digestive.niddk.nih.gov/ddiseases/pubs/constipation/) [employer] (http://www.gastro.org/patient-center/digestive-conditions/constipation) [employer] [place] [employer]astro[employer] (www.acg.gi.org/patients/gihealth/constipation.asp) I hope I answered all your questions today, explained possible treatments or workup for your symptoms, discussed potential side effects of medications, and made appropriate dietary and follow up recommendations. If labs, imaging studies, or biopsies were done, my nurse will call you in 1-2 weeks after I have reviewed the results with my recommendations and follow up. If you are signed up for my chart, you may check your lab and radiology results via the internet. These results are automaticallyreleased by [facility] usually before I review them. Pathology results are not automatically released. If you do have additional questions, please do not hesitate to call anytime at [phone] or send us a message through K[employer] or the [facility] adan. There is also a electric power machine operator sales and operations trainee through this number at anytime if you have any urgent questions. We also ask that you call at least 48 hours prior if you are not able to keep your scheduled appointment or procedure so that we may offer the appointment slot to someone else. You will receive a phone call notification from us reminding you of your office visit or procedure. If your procedure is scheduled in the hospital the scheduled time may vary because hospitalized patients are often given priority by the hospital. Esophagogastroduodenoscopy This is an endoscopic procedure (a procedure that uses a device like a flexible telescope) that allows your caregiver to view the upper stomach and small bowel. This test allows your caregiver to look at the esophagus. The esophagus carries food from your mouth to your stomach. They can also look at your duodenum. This is the first part of the small intestine that attaches to the stomach. This jeanie t is used to detect problems in the bowel such as ulcers and inflammation. PREPARATION FOR TEST Nothing to eat after midnight the day before the test. NORMAL FINDINGS Normal esophagus, stomach, and duodenum. Ranges for normal findings may vary among different laboratories and hospitals. You should always check with your doctor after having lab work or other tests done to discuss the meaning of your test results and whether your values are considered within normal limits. MEANING OF TEST Your caregiver will go over the test results with you and discuss the importance and meaning of your results, as well as treatment options and the need for additional tests if necessary. OBTAINING THE TEST RESULTS It is your responsibility to obtain your test results. Ask the lab or department performing the test when and how you will get your results. Document Released: 12/26/2005 Document Revised: 11/16/2012 Document Reviewed: 08/04/2009 ExitCare?? Patient Information ??2013 [employer]. ENDOSCOPY OVERVIEW An upper endoscopy, often referred to as endoscopy, EGD, or cffdxpbm-magebt-hskzavrhikbs, is a procedure that allows a physician to directly examine the upper part of the gastrointestinal (GI) tract,which includes the esophagus (swallowing tube), the stomach, and the duodenum (the first section of the small intestine) The physician who performs the procedures, known as an endoscopist, has special training in using an endoscope to examine the upper GI system, looking for inflammation (redness, irritation), bleeding, ulcers, or tumors. REASONS FOR UPPER ENDOSCOPY The most common reasons for upper endoscopy include: Unexplained discomfort in the upper abdomen GERD or gastroesophageal reflux disease, (often called heartburn) Persistent nausea and vomiting Upper GI bleeding (vomiting blood or blood found in the stool that originated from the upper part of the gastrointestinal tract). Bleeding can be treated during the endoscopy. Difficulty swallowing; food/liquids getting stuck in the esophagus during swallowing. This may be caused by a narrowing (stricture) or tumor. The stricture may be dilated with special balloons or dilation tubes during the endoscopy. Abnormal or unclear findings on an upper GI x-ray, CT scan or MRI. Removal of a foreign body (a swallowed object). To check healing or progress on previously found polyps (growths), tumors, or ulcers. ENDOSCOPY PREPARATION You will be given specific instructions regarding how to prepare for the examination before the procedure. These instructions are designed to maximize your safety during and after the examination andto minimize possible complications. It is important to read the instructions ahead of time and follow them carefully. Do not hesitate to call the physician's office or the endoscopy unit if there arequestions. You may be asked not to eat or drink anything for up to eight hours before the test. It is important for your stomach to be empty to allow the endoscopist to visualize the entire area and to decreasethe possibility of food or fluid being vomited into the lungs while under sedation (called aspiration). You may be asked to adjust the dose of your medications or to stop specific medications (such as aspirin-like drugs) temporarily before the examination. You should discuss your medications with your physician before your appointment for the endoscopy. You should arrange for a friend or family member to escort you home after the examination. Althoughyou will be awake by the time you are discharged, the medications used for sedation cause temporarychanges in the reflexes and judgment and interfere with your ability to drive or make decisions (similar to the effects of alcohol). WHAT TO EXPECT DURING ENDOSCOPY Prior to the endoscopy, the staff will review your medical and surgical history, including current medications. A physician will explain the procedure and ask you to sign a consent. Before signing the consent, you should understand all the benefits and risks of the procedure, and should have all ofyour questions answered. An intravenous line (a needle inserted into a vein in the hand or arm) will be started to deliver medications. You will be given a combination of a sedative (to help you relax), and a narcotic (to prevent discomfort). Although most patients are sedated for the examination, many tolerate the procedure well without any medication. Your vital signs (blood pressure, heart rate, and blood oxygen level) will be monitored before, during, and after the examination. The monitoring is not painful. Oxygen is often given during the procedure through a small tube that sits under the nose and is fitted around the ears. For safety reasons, dentures should be removed before the procedure. THE ENDOSCOPY PROCEDURE The procedure typically takes between 10 and 20 minutes to complete. The endoscopy is performed while you lie on your left side. Sometimes the physician will give a medication to numb the throat (either a gargle or a spray). A plastic mouth guard is placed between the teeth to prevent damage to theteeth and scope. The endoscope (also called a gastroscope) is a flexible tube that is about the size of a finger. The scope has a lens and a light source that allows the endoscopist to look into the scope to see the inner lining of the upper gastrointestinal tract, or to view it on a TV monitor. Most people have no difficulty swallowing the flexible gastroscope as a result of the sedating medications. Many peoplesleep during the test; others are very relaxed and generally not aware of the examination. An alternative procedure called transnasal endoscopy may be available in some facilities. This involves passing a very thin scope (about the size of a drinking straw) through the nose. You are not sedated but a medication is applied to the nose to prevent discomfort. A full examination can be performed with this instrument. The endoscopist may take tissue samples called biopsies (not painful), or perform specific treatments (such as dilation, removal of polyps, treatment of bleeding), depending upon what is found duringthe examination. Air is introduced through the scope to open the esophagus, stomach, and intestine,allowing the scope to be passed through these structures and improving the endoscopist's ability tosee all of the structures. You may experience a mild discomfort as air is pushed into the intestinal tract. This is not harmful and belching may relieve the sensation. The endoscope does not interfere with breathing. Taking slow, deep breaths during the procedure may help you to relax. ENDOSCOPY RECOVERY After the endoscopy, you will be observed for one to two hours while the sedative medication wears off. The medicines cause most people to temporarily feel tired or have difficulty concentrating and you should not drive or return to work after the procedure. The most common discomfort after the examination is a feeling of bloating as a result of the air introduced during the examination. This usually resolves quickly. Some patients also have a mild sore throat. Most patients are able to eat shortly after the examination. ENDOSCOPY COMPLICATIONS Upper endoscopy is a safe procedure and complications are uncommon. The following is a list of possible complications: Aspiration (inhaling) of food or fluids into the lungs, the risk of which can be minimized by not eating or drinking for the recommended period of time before the examination. The endoscope can cause a tear or hole in the tissue being examined. This is a serious complicationbut fortunately occurs only rarely. Bleeding can occur from biopsies or the removal of polyps, although it is usually minimal and stopsquickly on its own or can be easily controlled. Reactions to the sedative medications are possible; the endoscopy team (doctors and nurses) will ask about previous medication allergies or reactions and about health problems such as heart, lung, kidney, or liver disease. Providing this information to the team ensures a safer examination. The medications may produce irritation in the vein at the site of the intravenous line. If redness,swelling, or discomfort occurs, your should call your endoscopist or primary care provider, or the number given by the nurse at discharge. The following signs and symptoms should be reported immediately: Severe abdominal pain (more than gas cramps) A firm, distended abdomen Vomiting Any temperature elevation Difficulty swallowing or severe throat pain A crunching feeling under the skin of the neck AFTER UPPER ENDOSCOPY Most patients tolerate endoscopy very well and feel fine afterwards. Some fatigue is common after the examination, and you should plan to take it easy and relax the rest of the day. The endoscopist can describe the result of their examination before you leave the endoscopy unit. If biopsies have been taken or polyps removed, you should call for results within one to two weeks. WHERE TO GET MORE INFORMATION Your healthcare provider is the best source of information for questions and concerns related to your medical problem. The following organizations also provide reliable health information. National Library of Medicine (www.nlm.nih.gov/medlineplus/healthtopics.html) [employer] [place] [employer] of Gastrointestinal Endoscopy: (www.askasge.org) National [place] of Diabetes and Digestive and Kidney Diseases (http://digestive.niddk.nih.gov/ddiseases/pubs/upperendoscopy/index.htm) documented in this encounter Plan of Treatment Upcoming Encounters Date Type Department Care Team (Late st Contact Info) Description 07/29/2024 9:00 AM EST Appointment [facility] [address], [place] [id number] Jomar Kim MD [address] [place], [place] [id number] documented as of this encounter Results * HELICOBACTER PYLORI ANTIGEN,STOOL (08/09/2014 10:00 AM EST) H pylori Ag Stl NEGATIVE [facility] Comment: ===== H.PYLORI ANTIGEN ===== NEGATIVE Antimicrobials,proton pump inhibitors and bismuth preparations are known to suppress H.pylori and ingestion of these prior to testing may cause a false negative result. If a negative result is obtained for a patient that has ingested these compounds within two weeks prior of performing the H.pylori test, results may be falsely negative and should be repeated with a new specimen two weeks after discontinuing treatment. Performed at: ??[facility] ? [address], [address] ? [place] [address] Stool specimen (specimen) 08/09/2014 10:00 AM EST 08/09/2014 12:24 PM EST us Rad Pang MD BODY FLUIDS AND STOOLS ORDER DICK Final Result [facility] [address] [place] [address] documented in this encounter Visit Diagnoses Diagnosis Constipation- Primary Unspecified constipation Dysphagia Dysphagia, unspecified H. pylori infection Helicobacter pylori (H. pylori) documented in this encounter Orders Nursing Count Last Ordered Date First Orde red Date AMB EGD COMM ORDER 1 08/02/2014 documented in this encounter Care Teams Security Auditor Relationship Specialty Start Date End Date Kate Bai DO PCP - General Internal Medicine 05/31/14 10/02/14 Garett Holt MD Internal Medicine-Gastroenterology 12/22/12 Ruzi Stokes MD [address] [place] [address] Internal Medicine-Cardiovascular Disease 07/25/14 documented as of this encounter
--- OUTSIDE RECORDS SUMMARY | 2024-07-22 16:17 | XMS_ITS | Encounter Summary ---
Author Organization [place] [address] Care Team Providers Care Automotive Quality Engineer Name Role Phone Garett Holt MD Unavailable [phone] Kate Bai DO Primary Care Provider Unavailable Encounter Details Date Type Department Care Team (Latest Contact Info) Description 07/23/2014 11:30 AM EST - 07/23/2014 11:59 PM EST Hospital Encounter [facility] [address] [facility] [place] [address] Borderline diabetes (Primary Dx) Discharge Disposition: Home or Self [...] AM EST Appointment [facility] [address] [place] [address] Jomar Kim MD [address] [place] [address] Scheduled Orders Name Type Priority Associated Diagnoses Orde r Schedule OP VENIPUNCTURE CHARGE Lab Timed Borderline diabetes One Time for 1 Occurrences starting 07/23/2014 until 07/23/2014 documented as of this encounter Procedures Procedure Name Priority Date/Time Associated Diagnosis Comments HEMOGLOBIN A1C Routine 07/23/2014 11:39 AM EST Borderline diabetes BASIC METABOLIC PANEL Routine 07/23/2014 11:39 AM EST Borderline diabetes documented in this encounter Results * HEMOGLOBIN A1C (07/23/2014 11:39 AM EST) Pathologist [facility] [place] Hgb A1c 6.1 <=7.0 % [facility] Comment: Initial Diagnostic Criteria < 5.7 % ?Normal 5.7 - 6.4 % ? At risk for diabetes mellitus >= 6.5 % ?Consistent with diabetes mellitus Diabetes monitoring Target Value (ADA recommended): ?< 7 % Blood specimen (specimen) UPPER LIMB STRUCTURE / Unknown 07/23/2014 11:39 AM EST 07/23/2014 2:08 PM EST Kate Bai DO CHEMISTRY ORDERABLES Fi nal Result Performing Organization Address City/State/[facility] [[email or web address]] Co de Phone Number [facility] [address] [place] [address] * (ABNORMAL) BASIC METABOLIC PANEL (07/23/2014 11:39 AM EST) Pathologist [facility] [place] Sodium 142 136 - 145 mmol/L [facility] Potassium 4.2 3.5 - 5.0 mmol/L [facility] Chloride 102 98 - 107 mmol/L [facility] Total CO2 30(H) 22 - 29 mmol/L [facility] Anion Gap 10 7 - 16 mmol/L [facility] Calcium 10.0 8.6 - 10.2 mg/dL [facility] Glucose Lvl 107(H) 74 - 100 mg/dL [facility] BUN 7 6 - 20 mg/dL [facility] Creatinine 0.72 0.51 - 1.30 mg/dL [facility] GFR Afr Am >60 [facility] Comment: GFR is estimated using creatinine, age, gender, and race. ??GFR has been validated for patients between 18 and 70 years of age. GFR has not been validated for women, patients with serious comorbid conditions, or persons with extremes of body size, muscle mass, or nutritional status. ??For additional information: ??www.kidney.org. GFR Non Afr Am >60 [facility] Blood specimen (specimen) UPPER LIMB STRUCTURE / Unknown 07/23/2014 11:39 AM EST 07/23/2014 2:07 PM EST Kate Bai DO CHEMISTRY ORDERABLES Ed ited Result - Final Performing Organization Address City/State/[facility] [[email or web address]] Co de Phone Number [facility] [address] [place] [address] documented in this encounter Visit Diagnoses Diagnosis Borderline diabetes- Primary Other abnormal glucose documented in this encounter Care Teams Automotive Quality Engineer Relationship Specialty Start Date End Date Kate Bai DO PCP - General Internal Medicine 05/31/14 10/02/14 Garett Holt MD Internal Medicine-Gastroenterology 12/22/12 documented as of this encounter
--- OUTSIDE RECORDS SUMMARY | 2024-07-22 16:17 | XMS_ITS | Encounter Summary ---
Author Organization [place] [address] Care Team Providers Care Sanitation Manager Name Role Phone Garett Holt MD Unavailable [phone] Kate Bai DO Primary Care Provider Unavailable Ruiz Stokes MD Unavailable [phone] Annalise Oneill MD Primary Care Provider [phone] Cristiane Shirley MD Primary Care Provider [phone] Annalise Oneill MD Primary Care Provider [phone] Yenny Schwab MD Unavailable [phone] Cristiane Shirley MD Primary Care Provider [phone] Joselyn Chance RN Unavailable Unavail able Nuria Gonzalez BA, COS Unavailable Unavailable Nuria Gonzalez BA, COS Unavailable Unavailable Angelina Thomas BS, COS Unavailable Unavail able Abel Pretty MD Primary Care Provider Encounter Details Date Type Department Care Team (Late st Contact Info) Description 08/09/2014 Orders Only [facility] [address] [facility] [address] [place] [address] [place] [address] [place] [address] Social History Tobacco Use Types Packs/Day Years [...] AM EST Appointment [facility] [address] [place], [place] [id number] Jomar Kim MD [address] [place], [place] [id number] documented as of this encounter Procedures Procedure Name Priority Date/Time Associated Diagnosis Comments ED EGD Routine 08/09/2014 9:30 AM EST documented in this encounter Results * ED EGD (08/09/2014 9:30 AM EST) 08/09/2014 9:30 AM EST Impressions [facility] - 08/09/2014 10:08 AM EST Normal duodenum. Fluid in the stomach body. Blood in the stomach body. Esophageal hiatal hernia. Normal mucosa in the whole esophagus. (Dilation). Plan: Monitor response to todays treatment. Continue current medication for acid suppression/ dose 30 minutes before a meal Acid Reflux diet and Education This section is an excerpt of the full report. us Rad Pang MD GI PROCEDURE ORDERABLES Mercedes lind Result [facility] [address] [place] [address] documented in this encounter Visit Diagnoses Not on filedocumented in this encounter Additional Health Concerns Infection Onset Date Last Indicated Resolved Time R/O COVID-19 05/18/2020 05/18/202005/18/2020 3:46 PM EDT COVID-19 08/30/2023 08/30/2023 09/19/2023 10:1 2 PM EST documented as of this encounter Care Teams Sanitation Manager Relationship Specialty Start Date End Date Kate Bai DO PCP - General Internal Medicine 05/31/14 10/02/14 Annalise Oneill MD [address] [place] [address] PCP - General Family Medicine 10/03/14 12/27/14 Cristiane Shirley MD [address] [place] [address] PCP - General Family Medicine 12/28/14 11/18/16 Annalise Oneill MD [address] [place] [address] PCP - General Family Medicine 11/19/16 08/19/18 Cristiane Shirley MD [address] [place] [address] PCP - General Family Medicine 08/20/18 12/29/23 Abel Pretty MD [address] [place] [address] PCP - General Family Medicine 12/30/23 Garett Holt MD Internal Medicine-Gastroentero logy 12/22/12 Ruiz Stokes MD [address] [facility] [place] [id number] Internal Medicine-Cardiovascul ar Disease 07/25/14 Yenny Schwab MD [address] [facility] Building [address] [place] [address] Internal Medicine-Rheumatology 12/11/16 Joselyn Chance, RN Orbitread Operator Registered Nurse 05/05/20 03/08/21 Nuria Gonzalez BA, COS Case Fisher Eel 06/15/20 06/15/20 Nuria Gonzalez BA, COS [facility] [employer] Eel 02/08/21 02/27/21 Angelina Thomas BS, COS Case [employer] Eel 02/06/23 02/26/23 documented as of this encounter
--- OUTSIDE RECORDS SUMMARY | 2024-07-22 16:17 | XMS_ITS | Encounter Summary ---
Author Organization [place] [address] Care Team Providers Care Healthcare Manager Name Role Phone Garett Holt MD Unavailable [phone] Kate Bai DO Primary Care Provider Unavailable Ruiz Stokes MD Unavailable [phone] Reason for Visit * Reason Onset Date Comments Medication Refill 09/26/2014 Encounter Details Date Type Department Care Team (Late st Contact Info) Description 09/26/[address] [address] Kate Bai DO Medication Refill [...] Miscellaneous Notes * Telephone Encounter - Cesilia Higgins, [facility] - 09/26/2014 10:11 AM EST I informed [employer] that's all wants pt to have since she was due back for follow up last week. Tried to inform pt, unable to leave message on her voice mail. * Telephone Encounter - Dasha Paris - 09/26/2014 9:54 AM EST lisinopril (PRINIVIL;ZESTRIL) 10 mg Oral Tablet STATES 2 MORRISON BUT SAME QUANTITY FO #30 SHOULD THIS #60 ? documented in this encounter Plan of Treatment Upcoming Encounters Date Type Department Care Team (Late st Contact Info) Description 07/29/2024 9:00 AM EST Appointment [facility] [address] [facility] [address] Jomar Kim MD [address] [place] [address] documented as of this encounter Visit Diagnoses Not on filedocumented in this encounter Care Teams Healthcare Manager Relationship Specialty Start Date End Date Kate Bai DO PCP - General Internal Medicine 05/31/14 10/02/14 Garett Holt MD Internal Medicine-Gastroenterology 12/22/12 Ruiz Stokes MD [address] [place], [place] [id number] Internal Medicine-Cardiovascular Disease 07/25/14 documented as of this encounter
--- OUTSIDE RECORDS SUMMARY | 2024-07-22 16:17 | XMS_ITS | Encounter Summary ---
Author Organization [place] [address] Care Team Providers Care Xerox Machine Assembler Name Role Phone Garett Holt MD Unavailable [phone] aKte Bai DO Primary Care Provider Unavailable Reason for Visit * Reason Onset Date Comments Visit Follow Up 06/01/2014 Results 06/01/2014 Orders 06/01/2014 Encounter Details Date Type Department Care Team (Late st Contact Info) Description 06/01/[address] [address] Kate Bai DO Visit Follow Up; Results; Orders Social History Tobacco Use Types Packs/Day [...] encounter Miscellaneous Notes * Telephone Encounter - Renata Beauchamp LPN - 06/01/2014 3:04 PM EDT Please see result note. Advised to call back with questions or concerns. Labs ordered for 3 months. documented in this encounter Plan of Treatment Upcoming Encounters Date Type Department Care Team (Late st Contact Info) Description 07/29/2024 9:00 AM EST Appointment [facility] [address] [place], [place] [phone] Jomar Kim MD [address] [place] [address] documented as of this encounter Results * HEMOGLOBIN A1C (07/23/2014 11:39 AM EST) Pathologist [facility] Hgb A1c 6.1 <=7.0 % [facility] Comment: Initial Diagnostic Criteria < 5.7 % ?Normal 5.7 - 6.4 % ? At risk for diabetes mellitus >= 6.5 % ?Consistent with diabetes mellitus Diabetes monitoring Target Value (ADA recommended): ?< 7 % Blood specimen (specimen) UPPER LIMB STRUCTURE / Unknown 07/23/2014 11:39 AM EST 07/23/2014 2:08 PM EST Kate Bai DO CHEMISTRY ORDERABLES Fi nal Result Performing Organization Address City/State/[facility] Co de Phone Number [facility] [address] [place] [address] * (ABNORMAL) BASIC METABOLIC PANEL (07/23/2014 11:39 AM EST) Sodium 142 136 - 145 mmol/L [facility] Potassium 4.2 3.5 - 5.0 mmol/L [facility] Chloride 102 98 - 107 mmol/L [facility] Total CO2 30(H) 22 - 29 mmol/L [facility] Anion Gap 10 7 - 16 mmol/L [facility] Calcium 10.0 8.6 - 10.2 mg/dL [facility] Glucose Lvl 107(H) 74 - 100 mg/dL [facility] BUN 7 6 - 20 mg/dL [facility] Creatinine 0.72 0.51 - 1.30 mg/dL [facility] GFR Afr Am >60 [facility] Comment: GFR is estimated using creatinine, age, gender, and race. ??GFR has been validated for patients between 18 and 70 years of age. GFR has not been validated for women, patients with serious comorbid conditions, or persons with extremes of body size, muscle mass, or nutritional status. ??For additional information: ??www.kidney.org. GFR Non Afr Am >60 [facility] Blood specimen (specimen) UPPER LIMB STRUCTURE / Unknown 07/23/2014 11:39 AM EST 07/23/2014 2:07 PM EST Kate Bai DO CHEMISTRY ORDERABLES Ed ited Result - Final Performing Organization Address City/State/[facility] Co de Phone Number [facility] [address] [place] [address] documented in this encounter Visit Diagnoses Diagnosis Borderline diabetes- Primary Other abnormal glucose documented in this encounter Care Teams Xerox Machine Assembler Relationship Specialty Start Date End Date Kate Bai DO PCP - General Internal Medicine 05/31/14 10/02/14 Garett Holt MD Internal Medicine-Gastroenterology 12/22/12 documented as of this encounter
--- OUTSIDE RECORDS SUMMARY | 2024-07-22 16:17 | XMS_ITS | Encounter Summary ---
Author Organization [place] [address] Care Team Providers Care Nutrition Instructor Name Role Phone Garett Holt MD Unavailable [phone] Ruiz Stokes MD Unavailable [phone] Cristiane Shirley MD Primary Care Provider [phone] Reason for Visit * Reason Comments Gynecologic Exam AUB and pelvic pain Encounter Details Date Type Department Care Team (Latest Contact Info) Description 03/27/2015 9:20 AM EDT [facility] [address] [place] [address] Gianni Giron MD [address] [place] [id number] Well woman exam with routine gynecological exam (Primary Dx); Preventative health care; Abnormal uterine bleeding (AUB); Burning with urination; Endometrial hyperplasia Social History Tobacco Use Types [...] Sign Reading Time Taken Comments Blood Pressure 130/90 03/27/2015 9:12 AM EDT Pulse - - Temperature - - Respiratory Rate - - Oxygen Saturation - - Inhaled Oxygen Concentration - - Weight 121.6 kg (268 lb) 03/27/2015 9:12 AM EDT Height 162.6 cm (5' 4 ) 03/27/2015 9:12 AM EDT Body Mass Index 46 03/27/2015 9:12 AM EDT documented in this encounter Progress Notes * Iona Cruz RMA - 03/27/2015 10:10 AM EDT Results for orders placed or performed in visit on 03/27/15 POCT URINALYSIS DIPSTICK Result Value Ref Range Color, UA Clear, Yellow, [place], Rust Clarity, UA Clear, Cloudy Glucose, UA neg g/dl% Bilirubin, UA neg Pos/Neg Ketones, UA neg Pos/Neg Spec Grav, UA 1.020 1.001 - 1.035 g/dl Blood, UA 3+ Pos/Neg pH, UA 7.0 5.0 - 8 Protein, UA 1+ Pos/Neg Urobilinogen, UA 0.2 0.2 - 1.0 mg/dL Leukocytes, UA neg Pos/Neg Nitrite, UA neg Pos/Neg UA Appear POC Lot Number Expiration Date SeriAl # * Gianni Giron MD - 03/27/2015 9:42 AM EDT Subjective: Alyssa Jamil is a 59 y.o. female here for routine yearly exam. Current concerns are: post menopausal bleeding. Ms. Jamil has had spotting off and on for years. She recently had a pelvic sonogram which showed a thickened endometrium. She is here today for an endometrial biopsy. Gynecologic History No LMP recorded. Patient is postmenopausal. OB History Para Term AB TAB SAB Ectopic Multiple Living 2 2 2 2 Contraception: post menopausal status Last Pap: none on record. Results: normal, by history Mammogram: Results for orders placed during the hospital encounter of 07/08/12 MM MAMMO DIGITAL SCREENING W CAD BILAT Narrative Procedure:MM MAMMO DIGITAL SCREENING W CAD BILAT ~ Reason for exam: screening (asymptomatic). ~ MM MAMMO DIG SCREEN CAD BILAT Bilateral CC and MLO view(s) were taken. There are scattered fibroglandular densities. Compared to prior studies the most recent being 12-18-06 ~ Impression : No radiographic evidence of malignancy ([id number]) ~ RECOMMENDATION: Routine screening mammogram in 1 [...] was reviewed by a Radiologist and CAD. Past Medical History Diagnosis Date ??? Shortness of breath ??? Asthma ??? Other and unspecified angina pectoris (HCC) ??? Heartburn nausea after eating ??? Ulcer (HCC) ??? Arthritis all over ??? 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 Diabetes mellitus (HCC) borderline ??? Anemia on iron Review of Systems Constitutional: Feels well. Ears, nose, mouth, throat, and face: Negative Respiratory: No SOB. Cardiovascular: Negative Gastrointestinal: negative, no abdominal pain or change in bowel habits. Constipation controlled with suppositories. Genitourinary: No urinary tract symptoms. Some burning after urination. LABOURERS ROS: has some left breast pain when abdominal cramping occurs.. Objective: BP 130/90 mmHg Ht 5' 4 (1.626 m) Wt 268 lb (121.564 kg) BMI 45.98 kg/m2 General appearance: alert, appears stated age, cooperative and no distress HEAD: Normocephalic, without obvious abnormality, NECK: no adenopathy, thyroid not enlarged, no tenderness/mass/nodules LUNGSs: clear to auscultation bilaterally BREASTS: normal appearance, no masses or tenderness. HEART: regular rate and rhythm. ABDOMEN: soft, non-tender; no masses, no organomegaly. Morbid obesity. PELVIC EXAM: VULVA: Normal vulva, atrophic changes VAGINA: Loose, redundant vaginal m[place] CERVIX: no lesions UTERUS: normal size, smooth contour, mobile, non tender, anteverted ADNEXA: Normal adnexa, No mass, fullness, tenderness Exam limited by obesity PAP: Pap smear done today, HPV test EXTREMITIES: extremities normal, no cyanosis or edema. NEURO: grossly normal U/A: (done after biopsy) neg except for blood Assessment: Normal pelvic exam. AUB with thickened endometrium Plan: Alyssa was seen today for gynecologic exam. Endometrial biopsy done. Mammogram is ordered but not yetdone. Diagnoses and associated orders for this visit: Well woman exam with routine gynecological exam Preventative health care Abnormal uterine bleeding (AUB) documented in this encounter Plan of Treatment Upcoming Encounters Date Type Department Care Team (Late st Contact Info) Description 07/29/2024 9:00 AM EST Appointment [facility] [address] [place] [address] Jomar Kim MD [address] [place] [address] Scheduled Orders Name Type Priority Associated Diagnoses Orde r Schedule PATHOLOGY TISSUE REQUEST Lab Routine Abnormal uterine bleeding (AUB) 1 Occurrences starting 03/27/2015 until 03/26/2016 documented as of this encounter Procedures Procedure Name Priority Date/Time Associated Diagnosis Comments POCT URINALYSIS DIPSTICK Routine 03/27/2015 10:09 AM EDT Burning with urination documented in this encounter Results * POCT URINALYSIS DIPSTICK (03/27/2015 10:09 AM EDT) Color, UA Clear, Yellow, [place], Rust [facility] Clarity, UA Clear, Cloudy [facility] Glucose, UA neg g/dl% [facility] Bilirubin, UA neg Pos/Neg [facility] Ketones, UA neg Pos/Neg SEP panel monitor Grav, UA 1.020 1.001 - 1.035 g/dl [facility] Blood, UA 3+ Pos/Neg [facility] pH, UA 7.0 5.0 - 8 [facility] Protein, UA 1+ Pos/Neg [facility] Urobilinogen, UA 0.2 0.2 - 1.0 mg/dL [facility] Leukocytes, UA neg Pos/Neg [facility] Nitrite, UA neg Pos/Neg [facility] UA Appear POC [facility] OFFICE Lot Number SEP OFFICE Expiration Date SEP OFFICE SeriAl # SEP OFFICE Urine specimen (specimen) 03/27/2015 10:09 AM EDT us Gianni Giron MD POINT OF CARE TEST ORDERABLE S Final Result [facility] OFFICE documented in this encounter Visit Diagnoses Diagnosis Well woman exam with routine gynecological exam- Primary Routine gynecological examination Preventative health care Routine general medical examination at a health care facility Abnormal uterine bleeding (AUB) Burning with urination Dysuria Endometrial hyperplasia Endometrial hyperplasia, unspecified documented in this encounter Orders Lab Orders Without Results Count Last Ordered D ate First Ordered Date LABOURERS CYTOLOGY REQUEST (PAP ONLY) 1 5 documented in this encounter Care Teams Nutrition Instructor Relationship Specialty Start Date End Date Cristiane Shirley MD [address] [place] [address] PCP - General Family Medicine 12/28/14 11/18/16 Garett Holt MD Internal Medicine-Gastroenterology 12/22/12 Ruiz Stokes MD [address] [place] [address] Internal Medicine-Cardiovascular Disease 07/25/14 documented as of this encounter
--- OUTSIDE RECORDS SUMMARY | 2024-07-22 16:17 | XMS_ITS | Encounter Summary ---
Author Organization [facility] [place] [address] Care Team Providers Care Telehealth Coordinator Name Role Phone Garett Holt MD Unavailable [phone] Kate Bai DO Primary Care Provider Unavailable Ruiz Stokes MD Unavailable [phone] Reason for Visit * Reason Comments Follow-up Encounter Details Date Type Department Care Team (Late st Contact Info) Description 09/13/2014 2:45 PM EST Office Visit SEP [facility] [address] [place] [address] Kate Bai DO Hematuria (Primary Dx); HTN (hypertension) Social History Tobacco Use Types Packs/Day Years Used Date Smoking Tobacco: Former Smokeless Tobacco: Never Tobacco Cessation:Counseling Given: Yes Alcohol Use Standard Drinks/Week Comments No 0 [...] Sign Reading Time Taken Comments Blood Pressure 150/86 09/13/2014 3:48 PM EST Pulse 74 09/13/2014 3:48 PM EST Temperature - - Respiratory Rate - - Oxygen Saturation 98% 09/13/2014 3:48 PM EST Inhaled Oxygen Concentration - - Weight 125.6 kg (277 lb) 09/13/2014 3:48 PM EST Height 162.6 cm (5' 4 ) 09/13/2014 3:48 PM EST Body Mass Index 47.55 09/13/2014 3:48 PM EST documented in this encounter Ordered Prescriptions Prescription Sig Dispense Quantity Refills Last Filled Start Date End Date lisinopril (PRINIVIL;ZESTRIL) 10 mg Oral TabletIndications:H TN (hypertension) Take 2 Tabs by mouth daily. 30 Tab 0 09/13/2014 10/03/2014 documented in this encounter Progress Notes * Kate Bai, DO - 09/13/2014 3:51 PM EST Images from the original note were not included. Alyssa Jamil is a 59 y.o. female Chief Complaint Patient presents with ??? Follow-up Patient here for follow up. Pt states she is feeling dizzy at times. Admits to this going on the past couple of days. Pt states that she has had a few episodes of hematuria. This happened to her years ago and she states it was a gynecologic problem. Pt states that she was also having some back painrecently when she was having the hematuria. Pt states both are now resolved. Pt complains of her left ankle pain. No injury. Its my arthritis, it sounds like rice krispies . Discussed weight loss at length. Pt lost her paperwork from last time and needs phone numbers for gynecology and mammogram. States she is taking her new antihypertensive, BP same-still high. Patient Active Problem List Diagnosis ??? Esophageal reflux ??? Osteoarthrosis, unspecified whether generalized or localized, unspecified site ??? Dysphagia ??? Encounter for screening colonoscopy ??? Leg pain, right ??? SOB (shortness of breath) ??? Systolic murmur ??? Chest discomfort ??? Chest pain ??? Acute coronary syndrome ??? Ventral hernia ??? Hiatal hernia Past Surgical History Procedure Laterality Date ??? Cholecystectomy ??? Colonoscopy ??? Upper gastrointestinal endoscopy ??? Upper gastrointestinal endoscopy 02/17/2013 Surgeon: Garett Holt MD; Location: [facility]; Service: ??? Colonoscopy 02/17/2013 Surgeon: Garett Holt MD; Location: [facility]; Service: Allergies Allergen Reactions ??? No Known Allergies Current Outpatient Rx Name Route Sig Dispense Refill ??? lisinopril (PRINIVIL;ZESTRIL) 10 mg Oral Tablet Oral Take 1 Tab by mouth daily. 30 Tab 0 ??? simvastatin (ZOCOR) 10 mg [...] iron polysaccharides (FERREX 150 FORTE PLUS) 150-60-25-1 rf-io-pva-mg Oral Capsule Oral Take 1 capsule by [...] by mouth as needed. 90 Tab 1 Social History Social History ??? Marital Status: Spouse Name: N/A Number of Children: 2 ??? Years of Education: N/A Occupational History ??? disabled Social History Main Topics ??? Smoking status: Former Smoker ??? Smokeless tobacco: Never Used ??? Alcohol Use: No ??? Drug Use: None ??? Sexual Activity: None Other Topics Concern ??? None Social History Narrative Family History Problem Relation Age of Onset ??? Heart Disease Father ??? Cataracts Father ??? Diabetes Father ??? Cancer Maternal Grandmother ??? Colon Cancer Maternal Grandmother Immunization History Administered Date(s) Administered ??? Tdap 01/06/2013 Health Maintenance Due Topic Date Due ??? CERVICAL CANCER SCREENING 09/08/2011 ??? Influenza Vaccine (##1 of 1) 04/08/2014 ??? BREAST CANCER SCREENING 07/08/2014 Patient Care Team: Kate Bai DO as PCP - General (Internal Medicine) Garett Holt MD (Internal Medicine-Gastroenterology) Ruiz Stokes MD (Internal Medicine-Cardiovascular Disease) Review of Systems Constitutional: Positive for fever and chills. Respiratory: Positive for shortness of breath. Cardiovascular: Positive for chest pain. Gastrointestinal: Positive for nausea, vomiting, abdominal pain and diarrhea. Negative for constipation. Genitourinary: Positive for hematuria. Negative for dysuria. Musculoskeletal: Positive for myalgias. Neurological: Positive for dizziness. Psychiatric/Behavioral: The patient is not nervous/anxious. BP 150/86 Pulse 74 Ht 5' 4 (1.626 m) Wt 277 lb (125.646 kg) BMI 47.52 kg/m2 SpO2 98% Physical Exam Constitutional: She is well-developed, well-nourished, [...] pallor. Psychiatric: Mood, affect and judgment normal. Lab Results Component Value Date WBC 10.9 [...] 07/23/2014 MICROALBUR negative 05/13/2013 TSHREFLEX 2.130 05/31/2014 Assessment and Plan Results for orders placed in visit on 09/13/14 POCT URINALYSIS DIPSTICK Result Value Range Color, UA Clarity, UA Glucose, UA negative Bilirubin, UA negative Ketones, UA negative Spec Grav, UA 1.02 1.001 - 1.035 g/dl Blood, UA small pH, UA 6.0 5.0 - 8 Protein, UA negative Urobilinogen, UA 1.0 0.2 - 1.0 mg/dL Leukocytes, UA negative Nitrite, UA negative UA Appear POC Lot Number Expiration Date SeriAl # Alyssa was seen today for follow-up. Diagnoses and associated orders for this visit: Hematuria - POCT urinalysis dipstick - CBC with Auto Diff; Future HTN (hypertension) - lisinopril (PRINIVIL;ZESTRIL) 10 mg Oral Tablet; Take 2 Tabs by mouth daily. 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 To return for BP check in 1 week. Recommended: attempt to lose weight. No Follow-up on file. Educated patient regarding the care plan and instructions listed on the After Visit Summary [AVS] for today's visit. The patient verbalized full understanding of the care plan and instructions given on the AVS for today's visit. Kate Bai DO documented in this encounter Plan of Treatment Upcoming Encounters Date Type Department Care Team (Late st Contact Info) Description 07/29/2024 9:00 AM EST Appointment [facility] [address] [place] [address] Jomar Kim MD [address] [place] [address] documented as of this encounter Procedures Procedure Name Priority Date/Time Associated Diagnosis Comments POCT URINALYSIS DIPSTICK Routine 09/13/2014 4:01 PM EST Hematuria documented in this encounter Results * CBC WITH AUTO DIFF (09/13/2014 4:50 PM EST) WBC 9.6 4.0 - 11.0 x10(3)/mcL [facility] RBC 4.25 3.80 - 5.10 x10(6)/mcL [facility] Hgb 12.1 12.0 - 15.6 gm/dL [facility] Hct 37.1 35.7 - 45.9 % [facility] MCV 87.1 82.5 - 99.8 fL [facility] MCH 28.3 27.0 - 34.3 pg [facility] MCHC 32.5 32.1 - 35.3 gm/dL [facility] RDW 14.8 11.5 - 15.0 % [facility] Platelet 249 144 - 423 x10(3)/mcL [facility] MPV 8.2 6.8 - 10.8 fL [facility] Blood specimen (specimen) UPPER LIMB STRUCTURE / Unknown 09/13/2014 4:50 PM EST 09/13/2014 4:50 PM EST us Kate Bai DO HEMATOLOGY ORDERABLES F inal Result Performing Organization Address [facility] Co de Phone Number [facility] [address] [place] [address] * (ABNORMAL) BASIC METABOLIC PANEL (09/13/2014 4:50 PM EST) Sodium 143 136 - 145 mmol/L [facility] Potassium 3.9 3.5 - 5.0 mmol/L [facility] Chloride 100 98 - 107 mmol/L [facility] Total CO2 30(H) 22 - 29 mmol/L [facility] Anion Gap 13 7 - 16 mmol/L [facility] Calcium 9.8 8.6 - 10.2 mg/dL [facility] Glucose Lvl 95 74 - 100 mg/dL [facility] BUN 11 6 - 20 mg/dL [facility] Creatinine 0.69 0.51 - 1.30 mg/dL [facility] GFR Afr Am >60 [facility] Comment: GFR is estimated using creatinine, age, gender, and race. ??GFR has been validated for patients between 18 and 70 years of age. GFR has not been validated for women, patients with serious comorbid conditions, or persons with extremes of body size, muscle mass, or nutritional status. ??For additional information: ??www.kidney.org. GFR Non Afr Am >60 [facility] Blood specimen (specimen) UPPER LIMB STRUCTURE / Unknown 09/13/2014 4:50 PM EST 09/13/2014 4:50 PM EST Kate Bai DO CHEMISTRY ORDERABLES Ed ited Result - Final Performing Organization Address [facility]/ZIP Co de Phone Number [facility] [address] [place] [address] * (ABNORMAL) POCT URINALYSIS DIPSTICK (09/13/2014 4:01 PM EST) Color, UA Clear, Yellow, Central, Rust [facility] Clarity, UA Clear, Cloudy [facility] Glucose, UA negative g/dl% [facility] Bilirubin, UA negative Pos/Neg [facility] Ketones, UA negative Pos/Neg SEP card scraper Grav, UA 1.02 1.001 - 1.035 g/dl [facility] Blood, UA small Pos/Neg [facility] pH, UA 6.0 5.0 - 8 [facility] Protein, UA negative Pos/Neg [facility] Urobilinogen, UA 1.0 0.2 - 1.0 mg/dL [facility] Leukocytes, UA negative Pos/Neg [facility] Nitrite, UA negative Pos/Neg [facility] UA Appear POC [facility] Lot Number [facility] Expiration Date [facility] OFFICE SeriAl # [facility] Urine specimen (specimen) 09/13/2014 4:01 PM EST Kate Bai DO POINT OF CARE TEST ORDE PAVITHRA Final Result [facility] documented in this encounter Visit Diagnoses Diagnosis Hematuria- Primary Hematuria, unspecified HTN (hypertension) Unspecified essential hypertension documented in this encounter Discontinued Medications Medication Sig Discontinue Reason Start Date End Da te lisinopril (PRINIVIL;ZESTRIL) 10 mg Oral TabletIndications:HTN (hypertension) Take 1 Tab by mouth daily. Reorder 08/23/2014 09/13/2014 documented as of this encounter Care Teams Telehealth Coordinator Relationship Specialty Start Date End Date Kate Bai DO PCP - General Internal Medicine 05/31/14 10/02/14 Garett Holt MD Internal Medicine-Gastroenterology 12/22/12 Ruiz Stokes MD [address] [place] [address] Internal Medicine-Cardiovascular Disease 07/25/14 documented as of this encounter
--- OUTSIDE RECORDS SUMMARY | 2024-07-22 16:17 | XMS_ITS | Encounter Summary ---
Author Organization [place] [address] Care Team Providers Care Trade Specialist Name Role Phone Garett Holt MD Unavailable [phone] Ruiz Stokes MD Unavailable [phone] Annalise Oneill MD Primary Care Provider [phone] Reason for Referral * Consultation (Routine) - Closed Specialty Diagnoses / Procedures Referred By Ron bansal Referred To Contact Obstetrics and Gynecology Diagnoses Routine gynecological examination Annalise Oneill MD [address] [place] [address] Phone: tel: fax: Gianni Giron MD [address] [place] [address] Phone: tel: fax: Referral ID Status Reason Start Date Expiration Date Visits Re quested Visits Authorized [id number] Closed 10/03/2014 10/03/2015 1 1 Reason for Visit * Reason Comments Hip Pain right hip pain, has been going on for 4-5 days and worsening, has been taking alieve but not helping Diabetes Hyperlipidemia Hypertension Encounter Details Date Type Department Care Team (Latest Contact Info) Description 10/03/2014 11:10 AM EST Office Visit [facility] [address] [place] [address] Annalise Oneill MD [address] [place] [address] Right leg pain (Primary Dx); Diabetes mellitus (HCC); HTN (hypertension); Hyperlipidemia; Routine gynecological examination; Other screening mammogram; Morbid obesity (HCC); Excessive sleepiness Social History Tobacco Use Types Packs/Day Years [...] Sign Reading Time Taken Comments Blood Pressure 128/74 10/03/2014 11:04 AM EST Pulse 80 10/03/2014 11:04 AM EST Temperature 36.6 ??C (97.9 ??F) 10/03/2014 11:[address] Respiratory Rate 20 10/03/2014 11:04 AM EST Oxygen Saturation - - Inhaled Oxygen Concentration - - Weight 126.6 kg (279 lb) 10/03/2014 11:04 AM EST Height 162.6 cm (5' 4 ) 10/03/2014 11:04 AM EST Body Mass Index 47.89 10/03/2014 11:04 AM EST documented in this encounter Ordered Prescriptions Prescription Sig Dispense Quantity Refills Last Filled Start Date End Date naproxen sodium (ANAPROX) 550 mg Oral TabletIndications:R ight leg pain Take 1 Tab by mouth 2 times daily as needed. 60 Tab 2 10/03/2014 11/19/2016 simvastatin (ZOCOR) 10 mg Oral TabletIndications:H yperlipidemia Take 1 Tab by mouth every evening. 90 Tab 3 10/03/2014 03/15/2015 lisinopril (PRINIVIL;ZESTRIL) 10 mg Oral TabletIndications:H TN (hypertension) Take 2 Tabs by mouth daily. 30 Tab 5 10/03/2014 10/03/2014 metFORMIN (GLUCOPHAGE) 500 mg Oral TabletIndications:D iabetes mellitus (HCC) Take 1 Tab by mouth daily (with breakfast). 90 Tab 1 10/03/2014 03/15/2015 documented in this encounter Progress Notes * Annalise Oneill MD - 10/03/2014 11:03 AM EST Subjective: Patient ID: Alyssa Jamil is a 59 y.o. female. Chief Complaint Patient presents with ??? Hip Pain right hip pain, has been going on for 4-5 days and worsening, has been taking alieve but not helping ??? Diabetes ??? Hyperlipidemia ??? Hypertension HPI Patient presents as above. Patient complains of pain in the right leg just above the lateral knee. It is located in an area where several swollen veins are present. Feels as though something hot running through them.. She istaking one naproxen 225 mg daily without relief. Hyperlipidemia - Pt has done well since last ov. No complaints of side effects from medication. Diet has been reviewed with patient. Last cholesterol and liver panel has been reviewed. Current cholesterol goals discussed with patient. No components found with this basename: CHOL Lab Results Component Value Date HDL 49 01/02/2014 HDL 56 05/17/2013 HDL 58 03/25/2013 Lab Results Component Value Date LDLCALC 125* 01/02/2014 Lab Results Component Value Date TRIG 120 01/02/2014 TRIG 75 05/17/2013 TRIG 95 03/25/2013 Lab Results Component Value Date ALT 21 05/31/2014 AST 16 05/31/2014 HTN - Patient's blood pressure has been running well. Medications are working well without side effects. Patient reports no symptoms of chest pain, headaches or orthostasis. Prior BP readings reviewed during this visit. BP Readings from Last 3 Encounters: 10/03/14 128/74 09/13/14 150/86 08/23/14 152/92 DM type 2- Diabetes Mellitus: Patient presents for follow up of diabetes. Symptoms: none. Patient denies none. Home sugars: patient does not check sugars. Current diabetic medications include metformin. Eye exam current (within one year): no Current diet: in general, an unhealthy diet Current exercise: none For review of AF4Q measures Lab Results Component Value Date MICROALBUR negative 05/13/2013 URINEMICROAL 13.4 05/31/2014 Lab Results Component Value Date HGBA1C 6.1 07/23/2014 (goal is <8) Patient does have aspirin listed on medication list. If not, encouraged to start taking and if taking, added to med list. Patient does not use tobacco. If so - she was not counseled on cessation. Patient also needs referral for mammogram, sleep study, tab[facility] in [facility]. Patient reports she was encouraged to have a sleep study by the ER. Current symptoms include witnessed apnea, impaired memory/concentration, loud snoring and obesity Patients past medical, family and social histories were reviewed and updated. There were no changesexcept as noted. Review of Systems Constitutional: Negative for fever, chills, fatigue and unexpected weight change. Eyes: Negative for visual disturbance. Respiratory: Negative for cough and shortness of breath. Cardiovascular: Negative for chest pain, palpitations and leg swelling. Gastrointestinal: Negative for nausea, abdominal pain, diarrhea and constipation. Genitourinary: Negative for frequency and hematuria. Musculoskeletal: Positive for arthralgias. Hip pain Neurological: Negative for dizziness, numbness and headaches. Objective: Filed Vitals: 10/03/14 1104 BP: 128/74 Pulse: 80 Temp: 97.9 ??F (36.6 ??C) TempSrc: Temporal Resp: 20 Height: 5' 4 (1.626 m) Weight: 279 lb (126.554 kg) Body mass index is 47.87 kg/(m^2). Physical Exam Constitutional: She is oriented to person, place, and time. She appears well-developed. Morbidly obese Eyes: Conjunctivae are normal. Pupils are equal, round, and reactive to light. Neck: Normal range of motion. Neck supple. No thyromegaly present. Cardiovascular: Normal rate, regular rhythm, normal heart sounds and intact distal pulses. No carotid bruits. Pulmonary/Chest: Effort normal and breath sounds normal. Abdominal: Soft. Bowel sounds are normal. She exhibits no mass. There is no tenderness. Musculoskeletal: Right leg. Full range of motion of the hip. Numerous spider veins present. Tenderness laterally just above the knee over the IT band. Valgus deformity of the knees present. No knee effusion or swelling. Right calf trace edema Neurological: She is alert and oriented to person, place, and time. She has normal reflexes. Skin: Skin is warm and dry. Psychiatric: She has a normal mood and affect. Judgment normal. Vitals reviewed. Assessment and Plan: Alyssa was seen today for hip pain, diabetes, hyperlipidemia and hypertension. Diagnoses and associated orders for this visit: Right leg pain - naproxen sodium (ANAPROX) 550 mg Oral Tablet; Take 1 Tab by mouth 2 times daily as needed. Diabetes mellitus - metFORMIN (GLUCOPHAGE) 500 mg Oral Tablet; Take 1 Tab by mouth daily (with breakfast). - Hemoglobin A1c; Future - TSH Reflex; Future HTN (hypertension) - Discontinue: lisinopril (PRINIVIL;ZESTRIL) 10 mg Oral Tablet; Take 2 Tabs by mouth daily. - Basic Metabolic Panel; Future Hyperlipidemia - simvastatin (ZOCOR) 10 mg Oral Tablet; Take 1 Tab by mouth every evening. - Hepatic Function Panel; Future - Lipid Panel Reflex; Future Routine gynecological examination - Gynecology Other screening mammogram - Mammography digital screening with CAD bilat; Future Morbid obesity Excessive sleepiness Other Orders - Cancel: Lipid Screen; Future - Cancel: Hemoglobin A1c; Future - Cancel: POCT microalbumin encourage weight loss to off load stress on the knees. Suspect source of the pain is the it band stretching too tightly Printed orders provided to Patient for completion closer to her home Sleep study referral completed for [facility]. They will contact her to schedule evaluation Above problems were discussed with patient and all are stable except otherwise noted. Continue medications as prior. Refills done as required. Blood work will be done if appropriate. Will adjust medications by phone as needed based on lab results and as noted. Follow up for any changes and as directed. Return in about 3 months (around 01/01/2015) for diabetes. documented in this encounter Miscellaneous Notes * Patient Instructions - Annalise Oneill MD - 10/03/2014 11:27 AM EST For your diabetes care, we encourage the following: Keep track of your A1c number (shows sugar control for the 3 months prior to your test). Your last A1c level is below Lab Results Component Value Date HGBA1C 6.1 07/23/2014 For this level if you are below [...] 90. BP Readings from Last 3 Encounters: 10/03/14 128/74 09/13/14 150/86 08/23/14 152/92 For your cholesterol - your LDL (bad) cholesterol goal is to get less than 100. Lab Results Component Value Date LDLCALC 125* 01/02/2014 For some patients, we have more individualized goals that may be personalized based on other risk factors. documented in this encounter Plan of Treatment Upcoming Encounters Date Type Department Care Team (Late st Contact Info) Description 07/29/2024 9:00 AM EST Appointment [facility] [address] [place] [address] Jomar Kim MD [address] [place] [address] Scheduled Referrals Name Type Priority Associated Diagnoses Orde r Schedule AMB REFERRAL TO GYNECOLOGY Outpatient Referral Routine Routine gynecological examination Ordered: 10/03/2014 documented as of this encounter Results * (ABNORMAL) BASIC METABOLIC PANEL (11/08/2014 9:04 AM EST) Sodium 140 136 - 145 mmol/L [facility] Potassium 4.0 3.5 - 5.0 mmol/L [facility] Chloride 102 98 - 107 mmol/L [facility] Total CO2 30(H) 22 - 29 mmol/L [facility] Anion Gap 8 7 - 16 mmol/L [facility] Calcium 9.9 8.6 - 10.2 mg/dL [facility] Glucose Lvl 108(H) 74 - 100 mg/dL [facility] BUN 17 6 - 20 mg/dL [facility] Creatinine 0.65 0.51 - 1.30 mg/dL [facility] GFR Afr Am >60 [facility] Comment: GFR is estimated using creatinine, age, gender, and race. ??GFR has been validated for patients between 18 and 70 years of age. GFR has not been validated for women, patients with serious comorbid conditions, or persons with extremes of body size, muscle mass, or nutritional status. ??For additional information: ??www.kidney.org. GFR Non Afr Am >60 [facility] Blood specimen (specimen) 11/08/2014 9:04 AM EST 11/08/2014 9:04 AM EST Annalise Oneill MD CHEMISTRY ORDERABLES Edited R esult - Final Performing Organization Address [facility] de Phone Number [facility] [address] [place] [address] * TSH REFLEX (11/08/2014 9:04 AM EST) TSH Reflex 1.530 0.270 - 4.200 mcIU/mL [facility] Blood specimen (specimen) 11/08/2014 9:04 AM EST 11/08/2014 3:09 PM EST Annalise Oneill MD CHEMISTRY ORDERABLES Final Re sult Performing Organization Address [facility] Phone Number [facility] [address] [place] [address] * LIPID PANEL REFLEX (11/08/2014 9:04 AM EST) Cholesterol 164 <=200 mg/dL [facility] Comment: < 200 ?Desirable 200 - 239 ? Borderline High >= 240 ?High Triglyceride 86 <=150 mg/dL [facility] Comment: < 150 ? Normal 150 - 199 ?Borderline High 200 - 499 ?High ??>= 500 ? Very High HDL 58 >=40 mg/dL [facility] Comment: ?? > 60 ?Optimal 40 - 60 ?Acceptable ?? < 40 ?Low Blood specimen (specimen) 11/08/2014 9:04 AM EST 11/08/2014 3:09 PM EST Annalise Oneill MD CHEMISTRY ORDERABLES Edited R esult - Final Performing Organization Address [facility] de Phone Number [facility] [address] [place] [address] * HEPATIC FUNCTION PANEL (11/08/2014 9:04 AM EST) Total Protein 8.0 6.4 - 8.3 gm/dL [facility] Albumin 4.2 3.5 - 5.2 gm/dL [facility] Bili Direct <0.2 0.0 - 0.3 mg/dL [facility] Bili Total 0.3 0.1 - 1.3 mg/dL [facility] AST 15 <=40 IU/L [facility] ALT 20 <=41 IU/L [facility] Alk Phos 74 35 - 104 IU/L [facility] Blood specimen (specimen) 11/08/2014 9:04 AM EST 11/08/2014 9:04 AM EST us Annalise Oneill MD CHEMISTRY ORDERABLES Final Re sult Performing Organization Address [facility] de Phone Number [facility] [address] [place] [address] * HEMOGLOBIN A1C (11/08/2014 9:04 AM EST) Hgb A1c 6.1 <=7.0 % [facility] Comment: Initial Diagnostic Criteria < 5.7 % ?Normal 5.7 - 6.4 % ? At risk for diabetes mellitus >= 6.5 % ?Consistent with diabetes mellitus Diabetes monitoring Target Value (ADA recommended): ?< 7 % Blood specimen (specimen) 11/08/2014 9:04 AM EST 11/08/2014 3:08 PM EST us Annalise Oneill MD CHEMISTRY ORDERABLES Final Re sult [facility] [address] [place] [address] documented in this encounter Visit Diagnoses Diagnosis Right leg pain- Primary Pain in limb Diabetes mellitus (HCC) Type II or unspecified type diabetes mellitus without mention of complication, not stated as uncontrolled HTN (hypertension) Unspecified essential hypertension Hyperlipidemia Other and unspecified hyperlipidemia Routine gynecological examination Other screening mammogram Morbid obesity (HCC) Morbid obesity Excessive sleepiness Hypersomnia, unspecified documented in this encounter Discontinued Medications Medication Sig Discontinue Reason Start Date End Da te metFORMIN (GLUCOPHAGE) 500 mg Oral TabletIndications:Diabete s mellitus (HCC) Take 1 Tab by mouth daily (with breakfast). Reorder 08/19/2014 10/03/2014 lisinopril (PRINIVIL;ZESTRIL) 10 mg Oral TabletIndications:HTN (hypertension) Take 2 Tabs by mouth daily. Reorder 09/13/2014 10/03/2014 simvastatin (ZOCOR) 10 mg Oral TabletIndications:Hyperli pidemia Take 1 Tab by mouth every evening. Reorder 08/19/2014 10/03/2014 naproxen sodium (ANAPROX) 220 mg tabletIndications:Osteoar throsis, unspecified whether generalized or localized, unspecified site Take 1 Tab by mouth as needed. Reorder 12/01/2013 10/03/2014 documented as of this encounter Care Teams Trade Specialist Relationship Specialty Start Date End Date Annalise Oneill MD [address] [place] [phone] PCP - General Family Medicine 10/03/14 12/27/14 Garett Holt MD Internal Medicine-Gastroenterology 12/22/12 Ruiz Stokes MD [address] [place] [address] [place] [address] Internal Medicine-Cardiovascular Disease 07/25/14 documented as of this encounter
--- OUTSIDE RECORDS SUMMARY | 2024-07-22 16:17 | XMS_ITS | Encounter Summary ---
Author Organization [place] Address [facility] [place] [address] Care Team Providers Care Planned Giving Officer Name Role Phone Garett Holt MD Unavailable [phone] Kate Bai DO Primary Care Provider Unavailable Ruiz Stokes MD Unavailable [phone] Encounter Details Date Type Department Care Team (Latest Contact Info) Description 09/13/2014 4:35 PM EST - 09/13/2014 11:59 PM EST Hospital Encounter [facility] [place] [id number] HTN (hypertension); Hematuria Discharge Disposition: Home or Self Care Social [...] 9:00 AM EST Appointment [facility] [address] [place] [phone] Jomar Kim MD [address] [place] [address] Scheduled Orders Name Type Priority Associated Diagnoses Orde r Schedule OP VENIPUNCTURE CHARGE Lab Timed HTN (hypertension) Hematuria One Time for 1 Occurrences starting 09/13/2014 until 09/13/2014 documented as of this encounter Procedures Procedure Name Priority Date/Time Associated Diagnosis Comments DIFFERENTIAL Routine 09/13/2014 4:50 PM EST CBC WITH DIFF Routine 09/13/2014 4:50 PM EST Hematuria BASIC METABOLIC PANEL Routine 09/13/2014 4:50 PM EST HTN (hypertension) documented in this encounter Results * DIFFERENTIAL (09/13/2014 4:50 PM EST) Neut Percent 63.6 % [facility] Lymph Percent 24.0 % [facility] Atlantic Percent 9.1 % [facility] Eos Percent 2.9 % [facility] Baso Percent 0.4 % [facility] Neut# 6.1 1.8 - 7.7 x10(3)/mcL [facility] Lymph# 2.3 0.6 - 4.8 x10(3)/[facility] Atlantic# 0.9 0.0 - 1.3 x10(3)/[facility] Eos# 0.3 0.0 - 0.5 x10(3)/[facility] Baso# 0.0 0.0 - 0.2 x10(3)/[facility] Blood specimen (specimen) 09/13/2014 4:50 PM EST 09/13/2014 4:50 PM EST Kate Bai DO HEMATOLOGY ORDERABLES F inal Result [facility] [address] [place] [address] * CBC WITH AUTO DIFF (09/13/2014 4:50 PM EST) WBC 9.6 4.0 - 11.0 x10(3)/mcL [facility] RBC 4.25 3.80 - 5.10 x10(6)/mcL [facility] Hgb 12.1 12.0 - 15.6 gm/dL [facility] Hct 37.1 35.7 - 45.9 % [facility] MCV 87.1 82.5 - 99.8 fL [facility] MCH 28.3 27.0 - 34.3 pg [facility] MCHC 32.5 32.1 - 35.3 gm/dL [facility] RDW 14.8 11.5 - 15.0 % [facility] Platelet 249 144 - 423 x10(3)/mcL [facility] MPV 8.2 6.8 - 10.8 fL [facility] Blood specimen (specimen) UPPER LIMB STRUCTURE / Unknown 09/13/2014 4:50 PM EST 09/13/2014 4:50 PM EST Kate Bai DO HEMATOLOGY ORDERABLES F inal Result Performing Organization Address City/State/[facility] Co de Phone Number [facility] [address] [place] [address] * (ABNORMAL) BASIC METABOLIC PANEL (09/13/2014 4:50 PM EST) Pathologist [facility] Sodium 143 136 - 145 mmol/L [facility] Potassium 3.9 3.5 - 5.0 mmol/L [facility] Chloride 100 98 - 107 mmol/L [facility] Total CO2 30(H) 22 - 29 mmol/L [facility] Anion Gap 13 7 - 16 mmol/L [facility] Calcium 9.8 8.6 - 10.2 mg/dL [facility] Glucose Lvl 95 74 - 100 mg/dL [facility] BUN 11 6 - 20 mg/dL [facility] Creatinine 0.69 0.51 - 1.30 mg/dL [facility] GFR Afr Am >60 [facility] Comment: GFR is estimated using creatinine, age, gender, and race. ??GFR has been validated for patients between 18 and 70 years of age. GFR has not been validated for women, patients with serious comorbid conditions, or persons with extremes of body size, muscle mass, or nutritional status. ??For additional information: ??www.kidney.org. GFR Non Afr Am >60 [facility] Blood specimen (specimen) UPPER LIMB STRUCTURE / Unknown 09/13/2014 4:50 PM EST 09/13/2014 4:50 PM EST Kate Bai DO CHEMISTRY ORDERABLES Ed ited Result - Final Performing Organization Address City/State/[facility] Co de Phone Number [facility] [address] [place] [address] documented in this encounter Visit Diagnoses Diagnosis HTN (hypertension) Unspecified essential hypertension Hematuria Hematuria, unspecified documented in this encounter Care Teams Planned Giving Officer Relationship Specialty Start Date End Date Kate Bai DO PCP - General Internal Medicine 05/31/14 10/02/14 Garett Holt MD Internal Medicine-Gastroenterology 12/22/12 Ruiz Stokes MD [address] [place] [address] Internal Medicine-Cardiovascular Disease 07/25/14 documented as of this encounter
--- OUTSIDE RECORDS SUMMARY | 2024-07-22 16:17 | XMS_ITS | Encounter Summary ---
Author Organization [place] [address] Care Team Providers Care Doper Operator Name Role Phone Garett Holt MD Unavailable [phone] Ruiz Stokes MD Unavailable [phone] Cristiane Shirley MD Primary Care Provider [phone] Reason for Visit * Reason Onset Date Comments ED Follow-up 03/16/2015 Encounter Details Date Type Department Care Team (Late st Contact Info) Description 03/16/2015 Patient Outreach SEP [facility] [address] [place] [address] Brynn Morgan RMA ED Follow-up Social History Tobacco Use Types Packs/Day [...] Telephone Encounter - Brynn Haney RMA - 03/16/2015 12:59 PM EDT Made appt documented in this encounter Plan of Treatment Upcoming Encounters Date Type Department Care Team (Late st Contact Info) Description 07/29/2024 9:00 AM EST Appointment [facility] [address] [place] [address] Jomar Kim MD [address] [place] [address] documented as of this encounter Visit Diagnoses Not on filedocumented in this encounter Care Teams Doper Operator Relationship Specialty Start Date End Date Cristiane Shirley MD [address] [place], [place] [id number] PCP - General Family Medicine 12/28/14 11/18/16 Garett Holt MD Internal Medicine-Gastroenterology 12/22/12 Ruiz Stokes MD [address] [place] [address] Internal Medicine-Cardiovascular Disease 07/25/14 documented as of this encounter
--- OUTSIDE RECORDS SUMMARY | 2024-07-22 16:17 | XMS_ITS | Encounter Summary ---
Author [place] [address] Care Team Providers Care Fish Straightener Name Role Phone Garett Holt MD Unavailable [phone] Ruiz Stokes MD Unavailable [phone] Cristiane Shirley MD Primary Care Provider [phone] Reason for Visit * Reason Comments Chest Pain Last day or two the CP has subsided. Dr. Shirley wanted patient to follow up. * Consultation (Routine) - Closed Specialty Diagnoses / Procedures Referred By Contac t Referred To Contact Cardiology Diagnoses Acute chest pain Nonspecific abnormal electrocardiogram (ECG) (EKG) Cristiane Shirley MD Phone: tel: fax: Ruiz Stokes MD [address] [place] [address] Phone: tel: fax: Referral ID Status Reason Start Date Expiration Date V isits Requested Visits Authorized [id number] Closed Specialty Services Required 03/15/2015 03/14/2016 1 1 Encounter Details Date Type Department Care Team (Late st Contact Info) Description 03/31/2015 11:30 AM EDT Office Visit [facility] [address] [address] Ruiz Stokes MD [address] [place] [address] [place] [address] Chest pain, unspecified chest pain type (Primary Dx); Acute coronary syndrome (HCC); Gastroesophageal reflux disease with esophagitis; Osteoarthrosis, unspecified whether generalized or localized, unspecified site; Type 2 diabetes mellitus without complication (HCC); Dysphagia; Encounter for screening colonoscopy; Leg pain, right; SOB (shortness of breath); Chest discomfort; DDD (degenerative disc disease), lumbosacral; HAMIDA (obstructive sleep apnea); Endometrial hyperplasia Social History Tobacco Use Types [...] Sign Reading Time Taken Comments Blood Pressure 126/88 03/31/2015 10:24 AM EDT Pulse 64 03/31/2015 10:24 AM EDT Temperature - - Respiratory Rate - - Oxygen Saturation - - Inhaled Oxygen Concentration - - Weight 121.1 kg (267 lb) 03/31/2015 10:24 AM EDT Height 162.6 cm (5' 4 ) 03/31/2015 10:24 AM EDT Body Mass Index 45.83 03/31/2015 10:24 AM EDT documented in this encounter Progress Notes * Sayra Conner RMA - 04/04/2015 10:24 AM EDT C scheduled for 04/13/15 at 8:00am, pt to arrive at 6:00am. Labs to be drawn on 04/10/15. Patient is aware of all instructions for procedure, instruction sheet also mailed out to patient. * Ruiz Stokes MD - 03/31/2015 10:53 AM [...] iron polysaccharides (FERREX 150 FORTE PLUS) 150-60-25-1 hu-cp-thw-mg Oral Capsule Oral Take 1 capsule by [...] unstable angina Recent neg imaging study Plan [facility] soon Discussed need for coronary angiography with patient. Answered all questions and discussed risks, benefits and alternatives to angiography and pt agrees to proceed in the near future. Procedure will be scheduled as soon as possible. Thank you for allowing me to participate in the care of your patients. Please call with any concerns or questions Ruiz Stokes MD [facility] documented in this encounter Miscellaneous Notes * Patient Instructions - Sayra Conner RMA - 03/31/2015 10:25 AM EDT You may be contacted by [...] 9:00 AM EST Appointment [facility] [address] [place] [address] Jomar Kim MD [address] [place] [address] documented as of this encounter Procedures Procedure Name Priority Date/Time Associated Diagnosis Comments POCT EKG Routine 03/31/2015 10:28 AM EDT Chest pain, unspecified chest pain [...] EDT) Sodium 141 136 - 145 mmol/L [facility] Potassium 4.4 3.5 - 5.0 mmol/L [facility] Chloride 101 98 - 107 mmol/L [facility] Total CO2 28 22 - 29 mmol/L [facility] Anion Gap 12 7 - 16 mmol/L [facility] Calcium 10.0 8.6 - 10.2 mg/dL [facility] Glucose Lvl 109(H) 74 - 100 mg/dL [facility] BUN 18 6 - 20 mg/dL [facility] Creatinine 0.80 0.51 - 1.30 mg/dL [facility] Albumin 4.1 3.5 - 5.2 gm/dL [facility] Total Protein 7.7 6.4 - 8.3 gm/dL [facility] Bili Total 0.2 0.1 - 1.3 mg/dL [facility] AST 15 <=40 IU/L [facility] ALT 19 <=41 IU/L [facility] Alk Phos 70 35 - 104 IU/L [facility] GFR Afr Am >60 [facility] GFR Non Afr Am >60 [facility] Blood specimen (specimen) UPPER LIMB STRUCTURE / Unknown 04/10/2015 7:46 AM EDT 04/10/2015 7:46 AM EDT Ruiz Stokes MD CHEMISTRY ORDERABLES Edite d Result - Final [facility] [address] [place] [address] * (ABNORMAL) CBC (04/10/2015 7:46 AM EDT) Pathologist [facility] WBC 8.3 4.0 - 11.0 x10(3)/mcL [facility] RBC 4.14 3.80 - 5.10 x10(6)/mcL [facility] Hgb 11.6(L) 12.0 - 15.6 gm/dL [facility] Hct 35.8 35.7 - 45.9 % [facility] MCV 86.4 82.5 - 99.8 fL [facility] MCH 27.9 27.0 - 34.3 pg [facility] MCHC 32.3 32.1 - 35.3 gm/dL [facility] RDW 14.3 11.5 - 15.0 % [facility] Platelet 220 144 - 423 x10(3)/mcL [facility] MPV 7.7 6.8 - 10.8 fL [facility] Blood specimen (specimen) UPPER LIMB STRUCTURE / Unknown 04/10/2015 7:46 AM EDT 04/10/2015 7:46 AM EDT us Ruiz Stokes MD HEMATOLOGY ORDERABLES Mercedes l Result Performing Organization Address [facility] Co de Phone Number [facility] [address] [place] [address] * POCT EKG (03/31/2015 10:28 AM EDT) 03/31/2015 10:2 8 AM EDT Impressions SEP OFFICE - 03/31/2015 10:28 AM EDT NSR Low voltage EKG Unremarkable Ruiz Stokes MD POINT OF CARE CARDIOLOGY F inal Result Performing Organization Address [facility] Co de Phone Number [facility] OFF[facility] documented in this encounter Visit Diagnoses Diagnosis Chest pain, unspecified chest pain type- Primary Acute coronary syndrome (HCC) Intermediate coronary syndrome [...] unspecified documented in this encounter Care Teams Fish Straightener Relationship Specialty Start Date End Date Cristiane Shirley MD [address] [place] [address] PCP - General Family Medicine 12/28/14 11/18/16 Garett Holt MD Internal Medicine-Gastroenterology 12/22/12 Ruiz Stokes MD [address] [place] [address] Internal Medicine-Cardiovascular Disease 07/25/14 documented as of this encounter
--- OUTSIDE RECORDS SUMMARY | 2024-07-22 16:17 | XMS_ITS | Encounter Summary ---
Author Organization [place] [address] Care Team Providers Care Pathology Collector Name Role Phone Garett Holt MD Unavailable [phone] Kate Bai DO Primary Care Provider Unavailable Ruiz Stokes MD Unavailable [phone] Encounter Details Date Type Department Care Team (Late st Contact Info) Description 06/01/2014 Orders Only [facility] [address] [place] [address] Kate Bai, Diabetes mellitus (HCC) (Primary Dx) Social History Tobacco Use [...] End Date metFORMIN (GLUCOPHAGE) 500 mg Oral TabletIndications: Diabetes mellitus (HCC) Take 1 tablet by mouth daily (with breakfast). 30 tablet 2 06/01/2014 08/19/2014 documented in this encounter Plan of Treatment Upcoming Encounters Date Type Department Care Team (Late st Contact Info) Description 07/29/2024 9:00 AM EST Appointment [facility] [address] [facility] [place] [address] Jomar Kim MD [address] [place] [address] documented as of this encounter Visit Diagnoses Diagnosis Diabetes mellitus (HCC)- Primary Type II or unspecified type diabetes mellitus without mention of complication, not stated as uncontrolled documented in this encounter Care Teams Pathology Collector Relationship Specialty Start Date End Date Kate Bai DO PCP - General Internal Medicine 05/31/14 10/02/14 Garett Holt MD Internal Medicine-Gastroenterology 12/22/12 Ruiz Stokes MD [address] [place] [address] Internal Medicine-Cardiovascular Disease 07/25/14 documented as of this encounter
--- OUTSIDE RECORDS SUMMARY | 2024-07-22 16:17 | XMS_ITS | Encounter Summary ---
Author Organization [place] Address [address] [facility] [place] [address] Care Team Providers Care Psychiatry Adult Physician Name Role Phone Garett Holt MD Unavailable [phone] Kate Bai DO Primary Care Provider Unavailable Ruiz Stokes MD Unavailable [phone] Encounter Details Date Type Department Care Team (Latest Contact Info) Description 08/09/2014 11:00 AM EST - 08/09/2014 11:59 PM EST Hospital Encounter [facility] [place] [address] H. pylori infection Discharge Disposition: Home or Self Care Social [...] Progress Notes * Rad Pang MD - 08/10/2014 11:44 AM ESTQuick Note: Please call patient with normal results. Please have patient follow up at the interval recommended if mentioned in their procedure note. Seenote for additional recommendations. documented in this encounter Plan of Treatment Upcoming Encounters Date Type Department Care Team (Late st Contact Info) Description 07/29/2024 9:00 AM EST Appointment [facility] [address] [place] [address] Jomar Kim MD [address] [place], [place] [id number] documented as of this encounter Procedures Procedure Name Priority Date/Time Associated Diagnosis Comments HELICOBACTER PYLORI ANTIGEN,STOOL - REF LAB Routine 08/09/2014 10:00 AM EST H. pylori infection documented in this encounter Results * HELICOBACTER PYLORI ANTIGEN,STOOL (08/09/2014 10:00 AM EST) H pylori Ag Stl NEGATIVE [facility] Comment: ===== H.PYLORI ANTIGEN ===== NEGATIVE [...] two weeks after discontinuing treatment. Performed at: ??[facility] ? [address] [facility] [address] ? [place] [address] Stool specimen (specimen) 08/09/2014 10:00 AM EST 08/09/2014 12:24 PM EST us Rad Pang MD BODY FLUIDS AND STOOLS ORDER DICK Final Result [facility] [address] [place] [address] documented in this encounter Visit Diagnoses Diagnosis H. pylori infection Helicobacter pylori (H. pylori) documented in this encounter Care Teams Psychiatry Adult Physician Relationship Specialty Start Date End Date Kate Bai DO PCP - General Internal Medicine 05/31/14 10/02/14 Garett Holt MD Internal Medicine-Gastroenterology 12/22/12 Ruiz Stokes MD [address] [place] [address] Internal Medicine-Cardiovascular Disease 07/25/14 documented as of this encounter
--- OUTSIDE RECORDS SUMMARY | 2024-07-22 16:17 | XMS_ITS | Encounter Summary ---
Author Organization [place] [address] Care Team Providers Care Parquet Floor Layer'S Helper Name Role Phone Garett Holt MD Unavailable Ruiz Stokes MD Unavailable [phone] Annalise Oneill MD Primary Care Provider [phone] Encounter Details Date Type Department Care Team (Latest Contact Info) Description 11/08/2014 8:[address] [facility] - 11/08/2014 11:59 PM [facility] Encounter [facility] [address] [facility] [place], [place] [id number] HTN (hypertension); Diabetes mellitus (HCC); Hyperlipidemia; Chest pain; Acute coronary syndrome (HCC); Hiatal hernia; Ventral hernia; Chest discomfort; Leg pain, right; SOB (shortness of breath); Systolic murmur; Dysphagia; Encounter for screening colonoscopy; Esophageal reflux; Osteoarthrosis, unspecified whether generalized or localized, unspecified site Discharge Disposition: Home or Self Care Social [...] 9:00 AM EST Appointment [facility] [address] [place], [place] [phone] Jomar Kim MD [address] [place] [address] Scheduled Orders Name Type Priority Associated Diagnoses Orde r Schedule OP VENIPUNCTURE CHARGE Lab Timed HTN (hypertension) Diabetes mellitus (HCC) Hyperlipidemia Chest pain Acute coronary syndrome (HCC) Hiatal hernia Ventral hernia Chest discomfort Leg pain, right SOB (shortness of breath) Systolic murmur Dysphagia Encounter for screening colonoscopy Esophageal reflux Osteoarthrosis, unspecified whether generalized or localized, unspecified site One Time for 1 Occurrences starting 11/08/2014 until 11/08/2014 documented as of this encounter Procedures Procedure Name Priority Date/Time Associated Diagnosis Comments LDL, CALCULATED Routine 11/08/2014 9:04 AM EST LIPID PANEL REFLEX Routine 11/08/2014 9: 04 AM EST Hyperlipidemia TSH REFLEX Routine 11/08/2014 9:04 AM EST Diabetes mellitus (HCC) HEMOGLOBIN A1C Routine 11/08/2014 9:04 AM EST Diabetes mellitus (HCC) HEPATIC FUNCTION PANEL Routine 11/08/2014 9:04 AM EST Hyperlipidemia BASIC METABOLIC PANEL Routine 11/08/2014 9:04 AM EST HTN (hypertension) documented in this encounter Results * LDL, CALCULATED (11/08/2014 9:04 AM EST) LDL Calculated 89 <=100 mg/dL [facility] Comment: ??< 100 ?Optimal 100 - 129 ? Near or above optimal 130 - 159 ? Borderline High 160 - 189 ? High >= 190 ?Very High Blood specimen (specimen) 11/08/2014 9:04 AM EST 11/08/2014 3:09 PM EST Annalise Oneill MD CHEMISTRY ORDERABLES Final Re sult Performing Organization Address [facility] Phone Number [facility] [address] [place] [address] * TSH REFLEX (11/08/2014 9:04 AM EST) TSH Reflex 1.530 0.270 - 4.200 mcIU/mL [facility] Blood specimen (specimen) 11/08/2014 9:04 AM EST 11/08/2014 3:09 PM EST Annalise Oneill MD CHEMISTRY ORDERABLES Final Re sult Performing Organization Address [facility] de Phone Number [facility] [address] [place] [address] * LIPID PANEL REFLEX (11/08/2014 9:04 AM EST) Cholesterol 164 <=200 mg/dL [facility] Comment: < 200 ?Desirable 200 - 239 ? Borderline High >= 240 ?High Triglyceride 86 <=150 mg/dL [facility] Comment: < 150 ? Normal 150 - 199 ?Borderline High 200 - 499 ?High ??>= 500 ? Very High HDL 58 >=40 mg/dL [facility] Comment: ?? > 60 ?Optimal 40 - 60 ?Acceptable ?? < 40 ?Low Blood specimen (specimen) 11/08/2014 9:04 AM EST 11/08/2014 3:09 PM EST Annalise Oneill MD CHEMISTRY ORDERABLES Edited R esult - Final Performing Organization Address [facility] Phone Number [facility] [address] [place] [address] * HEPATIC FUNCTION PANEL (11/08/2014 9:04 AM EST) Total Protein 8.0 6.4 - 8.3 gm/dL [facility] Albumin 4.2 3.5 - 5.2 gm/dL [facility] Bili Direct <0.2 0.0 - 0.3 mg/dL [facility] Bili Total 0.3 0.1 - 1.3 mg/dL [facility] AST 15 <=40 IU/L [facility] ALT 20 <=41 IU/L [facility] Alk Phos 74 35 - 104 IU/L [facility] Blood specimen (specimen) 11/08/2014 9:04 AM EST 11/08/2014 9:04 AM EST us Annalise Oneill MD CHEMISTRY ORDERABLES Final Re sult Performing Organization Address [facility] Phone Number [facility] [address] [place] [address] * HEMOGLOBIN A1C (11/08/2014 9:04 AM EST) Pathologist [facility] Hgb A1c 6.1 <=7.0 % [facility] Comment: Initial Diagnostic Criteria < 5.7 % ?Normal 5.7 - 6.4 % ? At risk for diabetes mellitus >= 6.5 % ?Consistent with diabetes mellitus Diabetes monitoring Target Value (ADA recommended): ?< 7 % Blood specimen (specimen) 11/08/2014 9:04 AM EST 11/08/2014 3:08 PM EST Annalise Oneill MD CHEMISTRY ORDERABLES Final Re sult Performing Organization Address [facility] de Phone Number [facility] [address] [place] [address] * (ABNORMAL) BASIC METABOLIC PANEL (11/08/2014 9:04 AM EST) Sodium 140 136 - 145 mmol/L [facility] Potassium 4.0 3.5 - 5.0 mmol/L [facility] Chloride 102 98 - 107 mmol/L [facility] Total CO2 30(H) 22 - 29 mmol/L [facility] Anion Gap 8 7 - 16 mmol/L [facility] Calcium 9.9 8.6 - 10.2 mg/dL [facility] Glucose Lvl 108(H) 74 - 100 mg/dL [facility] BUN 17 6 - 20 mg/dL [facility] Creatinine 0.65 0.51 - 1.30 mg/dL [facility] GFR Afr Am >60 [facility] Comment: GFR is estimated using creatinine, age, gender, and race. ??GFR has been validated for patients between 18 and 70 years of age. GFR has not been validated for women, patients with serious comorbid conditions, or persons with extremes of body size, muscle mass, or nutritional status. ??For additional information: ??www.kidney.org. GFR Non Afr Am >60 [facility] Blood specimen (specimen) 11/08/2014 9:04 AM EST 11/08/2014 9:04 AM EST us Annalise Oneill MD CHEMISTRY ORDERABLES Edited R esult - Final [facility] [address] [place] [address] documented in this encounter Visit Diagnoses Diagnosis HTN (hypertension) Unspecified essential hypertension Diabetes mellitus (HCC) Type II or unspecified type diabetes mellitus without mention of complication, not stated as uncontrolled Hyperlipidemia Other and unspecified hyperlipidemia Chest pain Chest pain, unspecified Acute coronary syndrome (HCC) Intermediate coronary syndrome Hiatal hernia Diaphragmatic hernia without mention of obstruction or gangrene Ventral hernia Ventral hernia, unspecified, without mention of obstruction or gangrene Chest discomfort Other chest pain Leg pain, right Pain in limb SOB (shortness of breath) Shortness of breath Systolic murmur Undiagnosed cardiac murmurs Dysphagia Dysphagia, unspecified Encounter for screening colonoscopy Special screening for malignant neoplasms, colon Esophageal reflux Osteoarthrosis, unspecified whether generalized or localized, unspecified site documented in this encounter Care Teams Parquet Floor Layer'S Helper Relationship Specialty Start Date End Date Annalise Oneill MD [address] [place] [phone] PCP - General Family Medicine 10/03/14 12/27/14 Garett Holt MD Internal Medicine-Gastroenterology 12/22/12 Ruiz Stokes MD [address] [place] [address] Internal Medicine-Cardiovascular Disease 07/25/14 documented as of this encounter
--- OUTSIDE RECORDS SUMMARY | 2024-07-22 16:17 | XMS_ITS | Encounter Summary ---
Author Organization [place] [address] Care Team Providers Care Molder Fitting Name Role Phone Garett Holt MD Unavailable [phone] Ruiz Stokes MD Unavailable [phone] Annalise Oneill MD Primary Care Provider Reason for Visit * Reason Comments Other Encounter Details Date Type Department Care Team (Late st Contact Info) Description 10/08/2014 Telephone [facility] [address] [place] [address] Annalise Oneill MD [address] [place] [phone] Other Social History Tobacco Use Types Packs/Day [...] Miscellaneous Notes * Telephone Encounter - Katherine Hallman - 10/08/2014 10:06 AM EST error documented in this encounter Plan of Treatment Upcoming Encounters Date Type Department Care Team (Late st Contact Info) Description 07/29/2024 9:00 AM EST Appointment [facility] [address] [facility] [place], [place] [phone] Jomar Kim MD [address] [place] [address] documented as of this encounter Visit Diagnoses Not on filedocumented in this encounter Care Teams Molder Fitting Relationship Specialty Start Date End Date Annalise Oneill MD [address] [place] [phone] PCP - General Family Medicine 10/03/14 12/27/14 Garett Holt MD Internal Medicine-Gastroenterology 12/22/12 Ruiz Stokes MD [address] [place] [address] Internal Medicine-Cardiovascular Disease 07/25/14 documented as of this encounter
--- OUTSIDE RECORDS SUMMARY | 2024-07-22 16:17 | XMS_ITS | Encounter Summary ---
Author Organization [place] Address [facility] [place] [address] Care Team Providers Care Radial Router Operator Name Role Phone Garett Holt MD Unavailable [phone] Ruiz Stokes MD Unavailable [phone] Cristiane Shirley MD Primary Care Provider [phone] Encounter Details Date Type Department Care Team (Latest Contact Info) Description 03/27/2015 8:07 PM EDT - 03/27/2015 11:59 PM EDT Hospital Encounter [facility] PROCESSING [facility] [place] [id number] Abnormal uterine bleeding (AUB); Well woman exam with routine gynecological exam; Preventative health care Discharge Disposition: Home or Self Care Social [...] this encounter Medications at Time of Discharge nystatin (MYCOSTATIN) Top CreamIndications :Vaginal itching Apply topically 2 times daily for 14 days. 30 g 2 03/15/2015 5 documented as of this encounter Discharge Disposition Disposition Code Departure Means Destination Home or Self Care documented in this encounter Plan of Treatment Upcoming Encounters Date Type Department Care Team (Late st Contact Info) Description 07/29/2024 9:00 AM EST Appointment [facility] [address] [place], [place] [address] Jomar Kim MD [address] [place] [address] documented as of this encounter Procedures Procedure Name Priority Date/Time Associated Diagnosis Comments PATHOLOGY TISSUE REPORT Routine 03/27/2015 8:07 PM EDT MANAGER NC CYTOLOGY REPORT Routine 03/27/2015 3 :09 AM EDT documented in this encounter Results * PATHOLOGY TISSUE REPORT (03/27/2015 8:07 PM EDT) Surgical Pathology Report ? PATIENT NAME:ALYSSA CAMPOS ?Surgical Pathology Report ? Accession Number ?Collected Date/Time ? Received Date/Time ? [id number] ? 03/27/15 20:07 EDT ?03/27/15 21:28 EDT ? Diagnosis ? Endometrium, biopsy: ? - Atypical glandular proliferation, scant, see comment. ? Lizzie Palmer ? (Electronically signed by) ? Verified: 03/30/2015 ? [facility] ? Comment ? The material is limited with 1 fragment showing features of benign- ? appearing hyperplasia. ??Another small fragment is composed of a back to ? back arrangement of glands with a solid atypical cellular proliferation of ? uncertain significance. ??Additional testing is recommended. ? Clinical Information ? AUB ? Gross Description ? Received in formalin labeled with the patient's name and endo biopsy is ? approximately ? 0.75 mL of blood stained soft tissue fragments. ??Entirely submitted in 1 ? cassette. /[place] ? JOP/JR ? Microscopic Description ? Microscopic examination is performed and the findings corroborate the ? diagnosis. [facility] 03/27/2015 8:07 PM EDT us Gianni Giron MD PATHOLOGY ORDERABLES Final R esult [facility] [address] [place] [address] * MANAGER NC CYTOLOGY REPORT (03/27/2015 3:09 AM EDT) Drywall Sprayer Cytology Report ? PATIENT NAME:ALYSSA CAMPOS ? Drywall Sprayer Cytology Report ? Accession Number ?Collected Date/Time ? Received Date/Time ? [id number] ? 03/27/15 03:09 EDT ?03/28/15 02:58 EDT ? GY Specimen Source ? Specimen Vag/Cerv/Endocx?: Vag/Cerv/Endocerv ? Statement of Adequacy ? Satisfactory for Evaluation. ??Transformation Zone Present. ? Diagnosis ? NEGATIVE FOR INTRAEPITHELIAL LESION OR MALIGNANCY. ? Comment ? The Pap Smear is a screening test that aids in the detection of cervical ? cancer and cancer precursors. ??Both false positive and false negative ? results can occur. ??The test should be used at regular intervals, and ? positive results should be confirmed before definitive ? therapy. ? Processed using the [employer] Lead automated cytology screening device ? (CoNarrative). ? Traffic Enumerator: HE ?03/29/2015 ? Completed by: ??Lorin Marks, CT ?(Electronically signed by) ?03/29/2015 ?[facility] 03/27/2015 3:09 AM EDT us Gianni Giron MD PATHOLOGY ORDERABLES Final R esult Performing Organization Address City/State/[facility] Co de Phone Number [facility] [address] [place] [address] documented in this encounter Visit Diagnoses Diagnosis Abnormal uterine bleeding (AUB) Well woman exam with routine gynecological exam Routine gynecological examination Preventative health care Routine general medical examination at a health care facility documented in this encounter Orders Lab Orders Without Results Count Last Ordered D ate First Ordered Date PATHOLOGY TISSUE REQUEST 1 03/27/2015 documented in this encounter Care Teams Radial Router Operator Relationship Specialty Start Date End Date Cristiane Shirley MD [address] [place] [address] PCP - General Family Medicine 12/28/14 11/18/16 Garett Holt MD Internal Medicine-Gastroenterology 12/22/12 Ruiz Stokes MD [address] [place] [address] Internal Medicine-Cardiovascular Disease 07/25/14 documented as of this encounter
--- OUTSIDE RECORDS SUMMARY | 2024-07-22 16:18 | XMS_ITS | Encounter Summary ---
Author Organization [place] [address] Care Team Providers Care Leather Worker Name Role Phone Harjit Orellana DO, Viral Primary Care Provider [phone] Garett Holt MD Unavailable [phone] Reason for Visit * Reason Comments Blurred Vision Diabetes * Consultation (Routine) - Closed Specialty Diagnoses / Procedures Referred By Ron bansal Referred To Contact Ophthalmology Diagnoses Hyperlipidemia authorization faxed 01/06/14 Procedures consult pt to call Patrice Lombardi DO [address] [place] [address] Phone: tel: fax: Sung Whitaker MD [address] [facility] [address] [place] [phone] Phone: tel: fax: Referral ID Status Reason Start Date Expiration Date Visits Re quested Visits Authorized [id number] Closed 01/06/2014 01/01/2015 12 12 Encounter Details Date Type Department Care Team (Latest Contact Info) Description 01/10/2014 8:30 AM EDT Office Visit [facility] [place] [address] [place] [address] [place] [phone] Rob Rodas MD [address] [place] [address] Blurry vision (Primary Dx); Hyperopia with astigmatism and presbyopia, bilateral; Borderline diabetes mellitus Social History Tobacco Use Types Packs/Day Years [...] as of this encounter Progress Notes * Rob Rodas MD - 01/10/2014 9:48 AM EDT Subjective: Patient ID: Alyssa Jamil is a 58 y.o. female. Chief Complaint Patient presents with ??? Blurred Vision ??? Diabetes HPI HPI Patient here for a diabetic eye exam exam. Patient states for about 2 weeks off and on been having dizzy spells, ear pain, blurry vision in both eyes and headaches. Last HgbA1C on record was 6.0 in May 2013 Patients past medical, family and social histories were reviewed and updated. There were no changesexcept as noted. ROS ROS Positive for: Eyes (Patient here for a diabetic eye exam exam. Patient states for about 2 weeks offand on been having dizzy spells, ear pain, blurry vision in both eyes and headaches) Additional ROS: Positive for: Blurred Vision Negative for:Eye burning, Eye discharge, Eye pain or soreness, Eye redness, Excess tearing or watering and Double Vision Objective: Eye Exam: External Exam Right Left External Normal Normal Slit Lamp Exam Right Left Lids/Lashes Normal Normal Conjunctiva/Sclera White and quiet White and quiet Cornea Clear Clear Anterior Chamber Deep and quiet Deep and quiet Iris Normal Normal Lens Clear Clear Vitreous Normal Normal Fundus Exam Right Left Disc Normal Normal C/D Ratio 0.5 0.5 Macula Normal Normal Vessels Normal Normal Periphery Normal Normal Procedure: No findings were documented for this visit. Assessment and Plan: Alyssa was seen today for blurred vision and diabetes. Diagnoses and associated orders for this visit: Blurry vision - 93[address]- Refraction - fluorescein-benoxinate (FLURATE) ophthalmic solution 1 Drop; Apply 1 Drop to eye once. - tropicamide (MYDRIACYL) 1 % ophthalmic solution 1 Drop; Place 1 Drop into both eyes once. - phenylephrine (MYDFRIN) 2.5 % ophthalmic solution 1 Drop; Place 1 Drop into both eyes once. Hyperopia with astigmatism and presbyopia, bilateral Borderline diabetes mellitus - No evidence of diabetic retinopathy observed RX for glasses given. Return in about 1 year (around 01/10/2015), or if symptoms worsen or fail to improve. documented in this encounter Miscellaneous Notes * Patient Instructions - Yolanda Sampson OA - 01/10/2014 8:51 AM EDT Follow up as directed documented in this encounter Plan of Treatment Upcoming Encounters Date Type Department Care Team (Late st Contact Info) Description 07/29/2024 9:00 AM EST Appointment [facility] [address] [place], [place] [id number] Jomar Kim MD [address] [place] [address] Scheduled Orders Name Type Priority Associated Diagnoses Orde r Schedule [place] Charge Routine Blurry vision Ordered: 01/10/2014 documented as of this encounter Visit Diagnoses Diagnosis Blurry vision- Primary Other specified visual disturbances Hyperopia with astigmatism and presbyopia, bilateral Borderline diabetes mellitus Other abnormal glucose documented in this encounter Administered Medications Inactive Administered Medications - up to 1 most recent administrations Medication Order MAR Action Action Date Dose Rate Site fluorescein-benoxinate (FLURATE) ophthalmic solution 1 Drop 1 Drop, Ophthalmic, ONCE, 1 dose, On Fri01/10/14 at 0900, Dx: 1. Blurry visionIndications:Blurry vision Given 01/10/2014 8:51 AM EDT 1 Drop Both Eyes phenylephrine (MYDFRIN) 2.5 % ophthalmic solution 1 Drop 1 Drop, Both Eyes, ONCE, 1 dose, On Fri01/10/14 at 0900, Dx: 1. Blurry visionIndications:Blurry vision Given 01/10/2014 8:51 AM EDT 1 Drop Both Eyes tropicamide (MYDRIACYL) 1 % ophthalmic solution 1 Drop 1 Drop, Both Eyes, ONCE, 1 dose, On Fri01/10/14 at 0900, Dx: 1. Blurry visionIndications:Blurry vision Given 01/10/2014 8:51 AM EDT 1 Drop Both Eyes documented in this encounter Eye Exam Visual Acuity (Snellen - Linear) Right eye Left eye Dist sc 20/60 20/60 Tonometry (Applanation, 8:55 AM) Right eye Left eye Pressure 14 16 Pupils Pupils Right eye PERRL Left eye PERRL Visual Desouza Right eye Left eye Full Full Extraocular Movement Right eye Left eye Up gaze 0 0 0 0 0 0 Right/left gaze 0 -- 0 0 -- 0 Down gaze 0 0 0 0 0 0 Neuro/Psych Oriented x3: Yes Mood/Affect: Normal Dilation Both eyes: 2.5% Phenylephrin e @ 9:15 AM Keratometry (auto) K1 Winter K2 Winter Right eye 43.00 164 43.50 74 Left eye 43.00 177 45.00 87 Brightness Acuity Testing Medium Right eye 20/50 Left eye 20/25 External Exam Right eye Left eye External Normal Normal Slit Lamp Exam Right eye Left eye Lids/Lashes Normal Normal Conjunctiva/Sclera White and quiet White and cedric et Cornea Clear Clear Anterior Chamber Deep and quiet Deep and quiet Iris Normal Normal Lens Clear Clear Vitreous Normal Normal Fundus Exam Right eye Left eye Disc Normal Normal C/D Ratio 0.5 0.5 Macula Normal Normal Vessels Normal Normal Periphery Normal Normal Schirmers Right eye Left eye 5 mm 5 mm Manifest Refraction #1 (Auto) Sphere Cylinder Winter Dist VA Add Near VA Right eye PL +1.50 43 Left eye +1.00 +0.50 80 Manifest Refraction #2 Sphere Cylinder Winter Dist VA Add Near VA Right eye +0.75 +1.25 45 20/30 +2.50 20/30 Left eye +1.25 +0.75 95 20/25 +2.50 20/25 Final Rx Sphere Cylinder Winter Add Right eye +0.75 +1.25 45 +2.50 Left eye +1.25 +0.75 95 +2.50 Care Teams Leather Worker Relationship Specialty Start Date End Date Patrice Lombardi DO [address] [place] [phone] PCP - General Family Medicine 08/10/12 04/24/14 Garett Holt MD [address] [place] [phone] Internal Medicine-Gastroenterology 12/22/12 documented as of this encounter
--- OUTSIDE RECORDS SUMMARY | 2024-07-22 16:18 | XMS_ITS | Encounter Summary ---
Author Organization [place] [address] Care Team Providers Care Carding Doubler Name Role Phone Harjit Orellana DO, Viral Primary Care Provider [phone] Garett Holt MD Unavailable [phone] Reason for Referral * Consultation (Routine) - Closed Specialty Diagnoses / Procedures Referred By Ron bansal Referred To Contact Orthopaedic Surgery Diagnoses Ankle sprain and strain, left, initial encounter authorization faxed 01/06/14 Procedures consult pt to call Patrice Lombardi DO [address] [place] [phone] Phone: tel: fax: Juan Alberto Storm MD Phone: tel: fax: Referral ID Status Reason Start Date Expiration Date Visits Re quested Visits Authorized [id number] Closed 01/06/2014 01/06/2015 24 24 * Consultation (Routine) - Closed Specialty Diagnoses / Procedures Referred By Ron bansal Referred To Contact Internal Medicine-Cardiovascular Disease / Cardiology Diagnoses Chest pain authorization faxed 01/06/14 Procedures consult appt 01/10/14 Patrice Sweeney DO [address] [place] [phone] Phone: tel: fax: Ruiz Stokes MD [address] [place] [address] Phone: tel: fax: Referral ID Status Reason Start Date Expiration Date Visits Re quested Visits Authorized [id number] Closed 01/06/2014 01/06/2015 24 24 * Consultation (Routine) - Closed Specialty Diagnoses / Procedures Referred By Ron bansal Referred To Contact Ophthalmology Diagnoses Hyperlipidemia authorization faxed 01/06/14 Procedures consult pt to call Patrice Lombardi DO [address] [place] [phone] Phone: tel: fax: Sung Whitaker MD [address] [facility] [address] [place] [address] Phone: tel: fax: Referral ID Status Reason Start Date Expiration Date Visits Re quested Visits Authorized [id number] Closed 01/06/2014 01/01/2015 12 12 Reason for Visit * Reason Comments Hospital Follow Up chest pain sob, symp toms have improved needs stress test Headache dizzy and sometimes ears will hurt Skin Problem right side forehead redness needs checked some tenderness Referral patient states needs referral for stress test Diabetes a1c was 6.0 in septe [facility] never discussed Ankle Injury patient had xray lef t that showed Osteoarthritis of the tibiotalar joint. 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 Encounter Details Date Type Department Care Team (Late st Contact Info) Description 01/05/2014 10:20 AM EDT Office Visit [facility] [address] [place] [phone] Patrice Lombardi V, DO [address] [place] [phone] Chest pain (Primary Dx); Ankle sprain and strain, left, initial encounter; Dysphagia; Hyperlipidemia Social History Tobacco Use Types Packs/Day Years Used Date Smoking Tobacco: Never Smokeless Tobacco: Never Alcohol Use Standard Drinks/Week [...] Sign Reading Time Taken Comments Blood Pressure 140/84 01/05/2014 10:02 AM EDT Pulse 68 01/05/2014 10:02 AM EDT Temperature 35.3 ??C (95.6 ??F) 01/05/2014 10:02 AM E DT Respiratory Rate 20 01/05/2014 10:02 AM EDT Oxygen Saturation - - Inhaled Oxygen Concentration - - Weight 121 kg (266 lb 12.8 oz) 01/05/2014 10:02 AM EDT Height 162.6 cm (5' 4 ) 01/05/2014 10:02 AM EDT Body Mass Index 45.8 01/05/2014 10:02 AM EDT documented in this encounter Ordered Prescriptions Prescription Sig Dispense Quantity Refills Last Filled Start Date End Date simvastatin (ZOCOR) 10 mgIndications:Hyper lipidemia Take 1 Tab by mouth every evening. 30 Tab 2 01/05/2014 04/08/2014 documented in this encounter Progress Notes * Patrice Lombardi V, DO - 01/05/2014 10:08 AM EDT Subjective: Patient ID: Alyssa Jamil is a 58 y.o. female. Chief Complaint Patient presents with ??? Hospital Follow Up chest pain sob, symptoms have improved needs stress test ??? Headache dizzy and sometimes ears will hurt ??? Skin Problem right side forehead redness needs checked some tenderness ??? Referral patient states needs referral for stress test ??? Diabetes a1c was 6.0 in may never discussed ??? Ankle Injury patient had xray left that showed Osteoarthritis of the tibiotalar joint. 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 There were no changesexcept as noted. Review of Systems Constitutional: Positive for fatigue. Respiratory: Negative for cough. Cardiovascular: Positive for chest pain (improved). Gastrointestinal: Negative for vomiting and diarrhea. Neurological: Positive for dizziness and headaches. Objective: Filed Vitals: 01/05/14 1002 BP: 140/84 Pulse: 68 Temp: 95.6 ??F (35.3 ??C) TempSrc: Temporal Resp: 20 Height: 5' 4 (1.626 m) Weight: 266 lb 12.8 oz (121.02 kg) Body mass index is 45.77 kg/(m^2). Physical Exam Vitals reviewed. Constitutional: She is oriented to person, place, and time. She appears well- developed and well-nourished. HENT: Head: Normocephalic. Right Ear: External ear normal. Left Ear: External ear normal. Mouth/Throat: Oropharynx is clear and moist. Eyes: Conjunctivae and EOM are normal. Pupils are equal, round, and reactive to light. Neck: Normal range of motion. Neck supple. Cardiovascular: Normal rate, regular rhythm and normal heart sounds. Pulmonary/Chest: Effort normal and breath sounds normal. Abdominal: Soft. Musculoskeletal: Normal range of motion. Neurological: She is alert and oriented to person, place, and time. Skin: Skin is warm. Psychiatric: She has a normal mood and affect. Her behavior is normal. Judgment and thought contentnormal. Assessment and Plan: Alyssa was seen today for hospital follow up, headache, skin problem, referral, diabetes and ankle injury. Diagnoses and associated orders for this visit: Chest pain - Cardiology Ankle sprain and strain, left, initial encounter - Orthopedic Surgery Dysphagia - continue ppi Hyperlipidemia - Referral to Ophthalmology - simvastatin (ZOCOR) 10 mg; Take 1 Tab by mouth every evening. Above problems were discussed with patient and all are stable except otherwise noted. Continue medications as prior. Refills done as required. Blood work will be done if appropriate. Will adjust medications by phone as needed based on lab results and as noted. Follow up for any changes and as directed. No Follow-up on file. documented in this encounter Miscellaneous Notes * Patient Instructions - Luiza Espinoza MA - 01/05/2014 10:05 AM EDT Headache Headaches are caused by many different problems. Most commonly, headache is caused by muscle tension from an injury, fatigue or emotional upset. Excessive muscle contractions in the scalp and neck result in a headache that often feels like a tight band around the head. Tension headaches often have areas of tenderness over the scalp and the back of the neck. These headaches may last for hours, days or longer, and some may contribute to migraines in those who have migraine problems. Migraines usually cause a throbbing headache, which is made worse by activity. Sometimes only one side of the head hurts. Nausea, vomiting, eye pain, and avoidance of food are common with migraines. Visual symptoms such as light sensitivity, blind spots, or flashing lights may also occur. Loud noises may worsen migraine headaches. Many factors may cause migraine headaches: ?? Emotional stress, lack of sleep, and menstrual periods ?? Alcohol and some drugs (such as control pills) ?? Diet factors (fasting, caffeine, food preservatives, chocolate) ?? Environmental factors (weather changes, bright lights, odors, smoke) Other causes of headaches include minor injuries to the head. Arthritis in the neck, problems with the jaw, eyes, ears, or nose are also causes of headaches. Allergies, drugs, alcohol, and exposure to smoke can also cause moderate headaches. Rebound headaches can occur if someone uses pain medications for a long period of time and then stops. Less commonly, blood vessel problems in the neck and brain (including stroke) can cause various types of headache. Nervous system infections and brain tumors can cause bad headaches, but these are rare. Treatment of headaches includes medicines for pain and relaxation. Ice packs or heat applied to theback of the head and neck help some people. Massaging the shoulders, neck and scalp are often very useful. Relaxation techniques and stretching can help prevent these headaches. Avoid alcohol and cigarette smoking as these tend to make headaches worse. Please see your caregiver if your headache is not better in 2 days. SEEK IMMEDIATE MEDICAL CARE IF: ?? You develop a high fever, chills, or repeated vomiting ?? You faint or have difficulty with vision ?? You develop unusual numbness or weakness of your arms or legs ?? Relief of pain is inadequate with medication, or you develop severe pain ?? You develop confusion, or neck stiffness ?? You have a worsening of a headache or do not obtain relief Document Released: 08/25/2006 Document Re-Released: 03/07/2008 ExitCare?? Patient Information ??2009 [place]. documented in this encounter Plan of Treatment Upcoming Encounters Date Type Department Care Team (Late st Contact Info) Description 07/29/2024 9:00 AM EST Appointment [facility] [address] [place] [address] Jomar Kim MD [address] [place] [address] Scheduled Referrals Name Type Priority Associated Diagnoses Order Schedule AMB REFERRAL TO OPHTHALMOLOGY Outpatient Referral Routine Hyperlipidemia Ordered: 01/05/2014 AMB REFERRAL TO CARDIOLOGY Outpatient Referral Routine Chest pain Ordered: 01/05/2014 AMB REFERRAL TO ORTHOPEDIC SURGERY Outpatient Referral Routine Ankle sprain and strain, left, initial encounter Ordered: 01/05/2014 documented as of this encounter Visit Diagnoses Diagnosis Chest pain- Primary Chest pain, unspecified Ankle sprain and strain, left, initial encounter Dysphagia Dysphagia, unspecified Hyperlipidemia Other and unspecified hyperlipidemia documented in this encounter Care Teams Carding Doubler Relationship Specialty Start Date End Date Patrice Lombardi DO [address] [place] [phone] PCP - General Family Medicine 08/10/12 04/24/14 Garett Holt MD [address] [place] [phone] Internal Medicine-Gastroenterology 12/22/12 documented as of this encounter
--- OUTSIDE RECORDS SUMMARY | 2024-07-22 16:18 | XMS_ITS | Encounter Summary ---
Author Organization [facility] [place] [address] Care Team Providers Care Electronics Worker Name Role Phone Garett Holt MD Unavailable [phone] Kate Bai DO Primary Care Provider Unavailable Reason for Referral * Consultation (Routine) - Closed Specialty Diagnoses / Procedures Referred By Ron bansal Referred To Contact Dietitian, Registered / Diabetes Services Diagnoses DM type 2 (diabetes mellitus, type 2) ([facility]) Kate Bai DO [place] [id number] Phone: tel: fax: Referral ID Status Reason Start Date Expiration Date Visits Re quested Visits Authorized [id number] Closed 05/31/2014 05/31/2015 1 1 Comments Medical Nutrition Therapy (MNT) * Consultation (Routine) - Closed Specialty Diagnoses / Procedures Referred By Ron bansal Referred To Contact Diabetes Services Diagnoses DM type 2 (diabetes mellitus, type 2) ([facility]) Kate Bai DO [address] [place] [id number] Phone: tel: fax: Referral ID Status Reason Start Date Expiration Date Visits Re quested Visits Authorized [id number] Closed 05/31/2014 05/31/2015 3 3 Comments Initial DSMT Training * Consultation (Routine) - Closed Specialty Diagnoses / Procedures Referred By Contac t Referred To Contact Obstetrics & Gynecology-Gynecology / Obstetrics and Gynecology Diagnoses Screening for cervical cancer Kate Bai DO Referral ID Status Reason Start Date Expiration Date Visits Re quested Visits Authorized [id number] Closed 05/31/2014 05/31/2015 1 1 * Consultation (Routine) - Closed Specialty Diagnoses / Procedures Referred By Contact Referred To Contact Internal Medicine-Gastroenterology / Gastroenterology Diagnoses Abdominal pain, chronic, epigastric Kate Bai DO Schussler, Thomas, MD Phone: tel:[phone] fax:[phone] Referral ID Status Reason Start Date Expiration Date Visits Re quested Visits Authorized [id number] Closed 05/31/2014 05/31/2015 12 12 Reason for Visit * Reason Comments Establish Care Annual Exam Pain Abdominal Pain Encounter Details Date Type Department Care Team (Late st Contact Info) Description 05/31/2014 10:30 AM EDT Office Visit [address] [id number] Kate Bai DO Annual physical exam (Primary Dx); Screening for cervical cancer; DM type 2 (diabetes mellitus, type 2) (HCC); Screening for lipoid disorders; Esophageal reflux; Osteoarthrosis, unspecified whether generalized or localized, unspecified site; Dysphagia; Leg pain, right; SOB (shortness of breath); HAMIDA (obstructive sleep apnea); Anemia; Hyperlipidemia; Vitamin D deficiency; GERD (gastroesophageal reflux disease); Obesity; Weight gain; Intolerance to heat, initial encounter; Abdominal pain, chronic, epigastric Social History Tobacco Use Types Packs/Day Years [...] Sign Reading Time Taken Comments Blood Pressure 158/88 05/31/2014 10:30 AM EDT Pulse 60 05/31/2014 10:30 AM EDT Temperature - - Respiratory Rate 12 05/31/2014 10:30 AM EDT Oxygen Saturation - - Inhaled Oxygen Concentration - - Weight 127 kg (280 lb) 05/31/2014 10:30 AM EDT Height 160 cm (5' 3 ) 05/31/2014 10:30 AM EDT Body Mass Index 49.6 05/31/2014 10:30 AM EDT documented in this encounter Ordered Prescriptions Prescription Sig Dispense Quantity Refills Last Filled Start Date End Date acetaminophen (TYLENOL) 500 mg Oral TabletIndications:Ost eoarthrosis, unspecified whether generalized or localized, unspecified site Take 2 tablets by mouth every 6 hours as needed for Pain. 120 tablet 2 05/31/2014 5 iron polysaccharides (FERREX 150 FORTE PLUS) 150-60-25-1 sl-id-mtd-mg Oral CapsuleIndications:An emia Take 1 capsule by mouth daily (with breakfast). 30 capsule 5 05/31/2014 7 omeprazole (PRILOSEC) 20 mg Oral Capsule, Delayed Release(E.C.)Indicati ons:GERD (gastroesophageal reflux disease) Take 1 capsule by mouth 2 times daily (before meals). 60 tablet 0 05/31/2014 4 potassium chloride SA (K-DUR;KLOR-CON) 20 mEq Oral Tab Sust.Rel. Particle/CrystalIndic ations:Esophageal reflux,Osteoarthrosis , unspecified whether generalized or localized, unspecified site,Dysphagia,Leg pain, right,SOB (shortness of breath),HAMIDA (obstructive sleep apnea) Take 1 tablet by mouth daily. 30 tablet 6 05/31/2014 4 fUROsemide (LASIX) 40 mg Oral TabletIndications:Eso phageal reflux,Osteoarthrosis , unspecified whether generalized or localized, unspecified site,Dysphagia,Leg pain, right,SOB (shortness of breath),HAMIDA (obstructive sleep apnea) Take 1 tablet by mouth daily. 30 tablet 6 05/31/2014 4 ergocalciferol (VITAMIN D) 50,000 unit Oral CapsuleIndications:Vi tamin D deficiency Take 1 capsule by mouth once a week. 12 capsule 3 05/31/2014 7 simvastatin (ZOCOR) 10 mg Oral TabletIndications:Hyp erlipidemia Take 1 tablet by mouth every evening. 90 tablet 3 05/31/2014 4 documented in this encounter Progress Notes * Kate Bai, - 05/31/2014 10:36 AM EDT Subjective: Patient ID: Alyssa Jamil is a 59 y.o. female. Chief Complaint Patient presents with ??? Establish Care ??? Annual Exam ??? Pain ??? Abdominal Pain HPI Alyssa is a 59 y/o F former smoker here to establish care with Dr. Bai. Wants to discuss pain management for arthritis. This has been going on for years. Complains of knees, ankles, back and shoulders. Pt states that she has had several xrays in the past. Pt hasn't tried PT but has been taking Aleve for the past couple of years. The aleve doesn't help. Positive for epigastric abdominal pain that is exacerbated post meals. Voiced many concerns over having family hx of stomach cancer. Denies emesis or loose stools. Pt states that her stomach pain hasbeen getting worse over the past 3-4 months. Pt states she was placed on something for reflux which has helped some. Pt admits to intermittent weight loss due to this pain 15 lbs or so. Admits to constipation. 1 BM a week but now has improved to once daily. No fevers/chills. Admits to chest pressure earlier in the year. Was admitted to the hospital then. Had a normal stress test in 01/19. No recurrent CP. Pt states she has borderline DM II, but does not take medication. Advised to get routine screenings. Family hx of stomach cancer. Past Medical History Diagnosis Date ??? Shortness [...] iron polysaccharides (FERREX 150 FORTE PLUS) 150-60-25-1 ls-uy-cyf-mg Oral Capsule Oral Take 1 capsule by mouth daily (with breakfast). 30 capsule 5 ??? ondansetron (ZOFRAN ODT) 4 mg [...] mouth as needed. 90 Tab 1 ??? acetaminophen (TYLENOL) 500 mg Oral Tablet Oral Take 2 tablets by mouth every 6 hours as needed for Pain. 120 tablet 2 Social History Social History ??? Marital Status: [...] ??? Diabetes Father ??? Cancer Maternal Grandmother Immunization History Administered Date(s) Administered ??? Tdap 01/06/2013 Health Maintenance Due Topic Date Due ??? Colon Cancer Screening Colonoscopy 2006 ??? Cervical Cancer Screening 09/08/2011 ??? Colon Cancer Screening Occult Blood 12/15/2013 Patients past medical, family and social histories were reviewed and updated. There were no changesexcept as noted. Review of Systems Constitutional: Positive for fatigue. Negative for fever and unexpected weight change. HENT: Negative for hearing loss, ear pain, rhinorrhea, sneezing, trouble swallowing and neck pain. Eyes: Negative for visual disturbance. Respiratory: Negative for cough, chest tightness, shortness of breath and wheezing. Cardiovascular: Negative for chest pain, palpitations and leg swelling. Gastrointestinal: Positive for abdominal pain. Negative for nausea, vomiting, diarrhea, constipation, blood in stool, abdominal distention, anal bleeding and rectal pain. Endocrine: Positive for heat intolerance. Genitourinary: Negative for frequency, flank pain and enuresis. Musculoskeletal: Positive for arthralgias and gait problem ( uses a cane due to pain ). Negative for back pain. Skin: Negative for rash. Neurological: Negative for dizziness, weakness and headaches. Psychiatric/Behavioral: Negative for confusion, sleep disturbance and dysphoric mood. The patient is not nervous/anxious. Objective: Filed Vitals: 05/31/14 1030 BP: 158/88 Pulse: 60 Resp: 12 Height: 5' 3 (1.6 m) Weight: 280 lb (127.007 kg) Body mass index is 49.61 kg/(m^2). Physical Exam Physical Exam Constitutional: She is well-developed, well-nourished, [...] and Plan: Alyssa was seen today for establish care, annual exam, pain and abdominal pain. Diagnoses and associated orders for this visit: Annual physical exam - Basic Metabolic Panel; Future - Hepatic Function Panel; Future Screening for cervical cancer - Gynecology DM type 2 (diabetes mellitus, type 2) - Hemoglobin A1c - Lab Collect; Future - Microalbumin/Creatinine Ratio Urine; Future - Diabetic Education Referral - Initial DSMT Training - Diabetic Education Referral - Medical Nutrition Therapy (MNT) Screening for lipoid disorders Esophageal reflux - fUROsemide (LASIX) 40 mg Oral Tablet; Take 1 tablet by mouth daily. - potassium chloride SA (K-DUR;KLOR-CON) 20 mEq Oral Tab Sust.Rel. Particle/Crystal; Take 1 tablet by mouth daily. Osteoarthrosis, unspecified whether generalized or localized, unspecified site - fUROsemide (LASIX) 40 mg Oral Tablet; Take 1 tablet by mouth daily. - potassium chloride SA (K-DUR;KLOR-CON) 20 mEq Oral Tab Sust.Rel. Particle/Crystal; Take 1 tablet by mouth daily. - acetaminophen (TYLENOL) 500 mg Oral Tablet; Take 2 tablets by mouth every 6 hours as needed for Pain. Dysphagia - fUROsemide (LASIX) 40 mg Oral Tablet; Take 1 tablet by mouth daily. - potassium chloride SA (K-DUR;KLOR-CON) 20 mEq Oral Tab Sust.Rel. Particle/Crystal; Take 1 tablet by mouth daily. Leg pain, right - fUROsemide (LASIX) 40 mg Oral Tablet; Take 1 tablet by mouth daily. - potassium chloride SA (K-DUR;KLOR-CON) 20 mEq Oral Tab Sust.Rel. Particle/Crystal; Take 1 tablet by mouth daily. SOB (shortness of breath) - fUROsemide (LASIX) 40 mg Oral Tablet; Take 1 tablet by mouth daily. - potassium chloride SA (K-DUR;KLOR-CON) 20 mEq Oral Tab Sust.Rel. Particle/Crystal; Take 1 tablet by mouth daily. HAMIDA (obstructive sleep apnea) - fUROsemide (LASIX) 40 mg Oral Tablet; Take 1 tablet by mouth daily. - potassium chloride SA (K-DUR;KLOR-CON) 20 mEq Oral Tab Sust.Rel. Particle/Crystal; Take 1 tablet by mouth daily. Anemia - iron polysaccharides (FERREX 150 FORTE PLUS) 150-60-25-1 iz-kz-xkj-mg Oral Capsule; Take 1 capsule by mouth daily (with breakfast). Hyperlipidemia - simvastatin (ZOCOR) 10 mg Oral Tablet; Take 1 tablet by mouth every evening. Vitamin D deficiency - ergocalciferol (VITAMIN D) 50,000 unit Oral Capsule; Take 1 capsule by mouth once a week. - Vitamin D 25 Hydroxy - Lab Collect; Future GERD (gastroesophageal reflux disease) - omeprazole (PRILOSEC) 20 mg Oral Capsule, Delayed Release(E.C.); Take 1 capsule by mouth 2 times daily (before meals). Obesity - TSH Reflex - Lab Collect; Future Weight gain - TSH Reflex - Lab Collect; Future Intolerance to heat, initial encounter - TSH Reflex - Lab Collect; Future Abdominal pain, chronic, epigastric - Gastroenterology Pt counseled >20 minutes regarding importance of weight loss. Pt to stop Aleve due to it not helping her arthritis. Try tylenol arthritis. Pt counseled to lose weight for many reasons but also to help with arthritis. Pt voiced concern over not being able to afford healthy foods. Pt to meet with diabetic operations director to discuss all options. Return in 3 months (on 08/30/2014). documented in this encounter Miscellaneous Notes * Patient Instructions - Kate Bai, DO - 05/31/2014 11:20 AM EDT Your Homework prior to your next visit: ?? Continue current medications as prescribed. If you need any medication refills, please contact your pharmacy. ?? Call with any questions or concerns you may have. ?? We will contact you if your results come back abnormal. If you would like to know your results and have not heard from us after 2 days since completion, you may call office or check your mychart. ?? Sign up for [facility]. (If you haven't already.) ?? If you have had any routine screenings such as colonoscopy, diabetic eye exams, mammograms, or any additional testing that is not with [facility], PLEASE fax results to [phone] w/ ATTN: Dr. Bai. Dr. Bai has ordered lab work for you prior to your next office visit. [facility] your orders are already in the computer. For any lab outside of [facility] the lab orders need to be printed and taken with you for your visit. Please fast for 12 hours prior to your visit to the lab unless you were instructed otherwise. There is a [facility] lab at this location on the second floor. They open at 7:30 AM and are there until 4:00 PM. It is not necessary to make an appointment. Please note that if you want to reviewyour labs in [facility] you MUST use a [facility] or [facility] lab to access your information. I hope your visit today met or exceeded all of your expectations. Until we can serve you again, please let me know of any of the following: You would like more information for any of your health conditions, You have any questions concerning your current or previous medications and dosages, Your have any questions about any testing that was or will be completed, or A new health concern arises. Please let me know if any of your healthcare needs were not met. I also value exceptional effort by any of our staff, so please inform me if any staff deserves recognition. Thank you for choosing [facility] for your health care needs today! Sincerely, Dr. Kate Bai You may be overdue for colon cancer screening with a screening colonoscopy. Colon cancer is the second leading cause of cancer behind lung cancer. Screening is important in detecting this disease at an early stage when it is most curable. There is good evidence that colon cancer screening saves lives. The current guidelines recommend a screening colonoscopy at least every 10 years, beginning at age 50 until the age of 75. If you have not had such a screening test then please call one of the two groups below to schedule. [facility]astroenterology [facility]enter[facility] [address] [facility] [address] [place] [address] [place] [address] Exercise to Lose Weight Exercise and a healthy diet may help you lose weight. Your doctor may suggest specific exercises. EXERCISE IDEAS AND TIPS ?? Choose low-cost things you enjoy doing, such as walking, bicycling, or exercising to workout videos. ?? Take stairs instead of the elevator. ?? Walk during your lunch break. ?? Park your car further away from work or school. ?? Go to a gym or an exercise class. ?? Start with 5 to 10 minutes of exercise each day. Build up to 30 minutes of exercise 4 to 6 days a week. ?? Wear shoes with good support and comfortable clothes. ?? Stretch before and after working out. ?? Work out until you breathe harder and your heart beats faster. ?? Drink extra water when you exercise. ?? Do not do so much that you hurt yourself, feel dizzy, or get very short of breath. Exercises that burn about 150 calories: ?? Running 1 ?? miles in 15 minutes. ?? Playing volleyball for 45 to 60 minutes. ?? Washing and waxing a car for 45 to 60 minutes. ?? Playing touch football for 45 minutes. ?? Walking 1 ?? miles in 35 minutes. ?? Pushing a stroller 1 ?? miles in 30 minutes. ?? Playing basketball for 30 minutes. ?? Raking leaves for 30 minutes. ?? Bicycling 5 miles in 30 minutes. ?? Walking 2 miles in 30 minutes. ?? Dancing for 30 minutes. ?? Shoveling snow for 15 minutes. ?? Swimming laps for 20 minutes. ?? Walking up stairs for 15 minutes. ?? Bicycling 4 miles in 15 minutes. ?? Gardening for 30 to 45 minutes. ?? Jumping rope for 15 minutes. ?? Washing windows or floors for 45 to 60 minutes. Document Released: 09/27/2011 Document Revised: 11/16/2012 Document Reviewed: 09/27/2011 ExitCare?? Patient Information ??2012 [employer]. documented in this encounter Plan of Treatment Upcoming Encounters Date Type Department Care Team (Late st Contact Info) Description 07/29/2024 9:00 AM EST Appointment [facility] [address] [place] [address] Jomar Kim MD [address] [place] [address] Scheduled Referrals Name Type Priority Associated Diagnoses Order Schedule AMB REFERRAL TO GASTROENTEROLOGY Outpatient Referral Routine Abdominal Pain, Chronic, Epigastric Ordered: 05/31/2014 AMB REFERRAL TO GYNECOLOGY Outpatient Referral Routine Screening for cervical cancer Ordered: 05/31/2014 AMB REFERRAL TO DIABETIC EDUCATION Outpatient Referral Routine DM type 2 (diabetes mellitus, type 2) (HCC) Ordered: 05/31/2014 AMB REFERRAL TO DIABETIC EDUCATION Outpatient Referral Routine DM type 2 (diabetes mellitus, type 2) (HCC) Ordered: 05/31/2014 documented as of this encounter Results * MICROALBUMIN/CREATININE RATIO URINE (05/31/2014 11:42 AM EDT) Urine Microalb 13.4 mg/L [facility] Urine Creatinine 86.8 mg/dL [facility] Ur Microalb/Creat 15 0 - 20 mg/gm [facility] Urine specimen (specimen) URINE SPECIMEN COLLECTION, CLEAN CATCH / Unknown 05/31/2014 11:42 AM EDT 05/31/2014 2:49 PM EDT Kate Bai DO URINE ORDERABLES Final Result Performing Organization Address [facility] de Phone Number [facility] [address] [place] [address] * TSH REFLEX (05/31/2014 11:32 AM EDT) Pathologist [facility] TSH Reflex 2.130 0.270 - 4.200 mcIU/mL [facility] Blood specimen (specimen) UPPER LIMB STRUCTURE / Unknown 05/31/2014 11:32 AM EDT 05/31/2014 2:48 PM EDT Kate Bai DO CHEMISTRY ORDERABLES Fi nal Result Performing Organization Address [facility] de Phone Number [facility] [address] [place] [address] * (ABNORMAL) VITAMIN D 25 HYDROXY (05/31/2014 11:32 AM EDT) Pathologist [facility] VIT D 25 OH 23.7(L) 30.0 - 120.0 ng/mL [facility] Comment: INTERPRETIVE INFORMATION: ??Vitamin D, 25-Hydroxy <20 ng/mL ? Deficiency 20 - 29 ng/mL ?Insufficiency 30 - 80 ng/mL ?Optimum Level >120 ng/mL ? Possible Toxicity NOTE: For infants and children up to 17 years of age, the optimum level is >=20 ng/mL. This assay accurately quantifies the sum of vitamin D3, 25-Hydroxy and vitamin D2, 25-Hydroxy. Blood specimen (specimen) 05/31/2014 11:32 AM EDT 05/31/2014 2:48 PM EDT Kate Bai DO CHEMISTRY ORDERABLES Fi nal Result Performing Organization Address [facility] de Phone Number [facility] [address] [place] [address] * HEPATIC FUNCTION PANEL (05/31/2014 11:32 AM EDT) Pathologist [facility] Total Protein 7.7 6.4 - 8.3 gm/dL [facility] Albumin 4.0 3.5 - 5.2 gm/dL [facility] Bili Direct <0.2 0.0 - 0.3 mg/dL [facility] Bili Total 0.2 0.1 - 1.3 mg/dL [facility] AST 16 <=40 IU/L [facility] ALT 21 <=41 IU/L [facility] Alk Phos 79 35 - 104 IU/L [facility] Blood specimen (specimen) UPPER LIMB STRUCTURE / Unknown 05/31/2014 11:32 AM EDT 05/31/2014 2:48 PM EDT Kate Bai DO CHEMISTRY ORDERABLES Ed ited Result - Final [facility] [address] [place] [address] * (ABNORMAL) BASIC METABOLIC PANEL (05/31/2014 11:32 AM EDT) Sodium 142 136 - 145 mmol/L [facility] Potassium 4.3 3.5 - 5.0 mmol/L [facility] Chloride 103 98 - 107 mmol/L [facility] Total CO2 30(H) 22 - 29 mmol/L [facility] Anion Gap 9 7 - 16 mmol/L [facility] Calcium 10.2 8.6 - 10.2 mg/dL [facility] Glucose Lvl 96 74 - 100 mg/dL [facility] BUN 14 6 - 20 mg/dL [facility] Creatinine 0.66 0.51 - 1.00 mg/dL [facility] GFR Afr Am >60 [facility] Comment: GFR is estimated using creatinine, age, gender, and race. ??GFR has been validated for patients between 18 and 70 years of age. GFR has not been validated for women, patients with serious comorbid conditions, or persons with extremes of body size, muscle mass, or nutritional status. ??For additional information: ??www.kidney.org. Chronic kidney disease stage ? GFR (ml/min/1.73 square meters) ? Stage 3 ? 30 - 59 ? Stage 4 ? 15 - 29 ? Stage 5 ? 14 or less GFR Non Afr Am >60 [facility] Blood specimen (specimen) UPPER LIMB STRUCTURE / Unknown 05/31/2014 11:32 AM EDT 05/31/2014 2:48 PM EDT Kate Bai DO CHEMISTRY ORDERABLES Ed ited Result - Final [facility] [address] [place] [address] * HEMOGLOBIN A1C (05/31/2014 11:32 AM EDT) Hgb A1c 6.2 <=7.0 % [facility] Comment: Initial Diagnostic Criteria < 5.7 % ?Normal 5.7 - 6.4 % ? At risk for diabetes mellitus >= 6.5 % ?Consistent with diabetes mellitus Diabetes monitoring Target Value (ADA recommended): ?< 7 % Blood specimen (specimen) UPPER LIMB STRUCTURE / Unknown 05/31/2014 11:32 AM EDT 05/31/2014 2:47 PM EDT us Kate Bai DO CHEMISTRY ORDERABLES Fi nal Result [facility] [address] [place] [address] documented in this encounter Visit Diagnoses Diagnosis Annual physical exam- Primary Routine general medical examination at a health care facility Screening for cervical cancer Screening for malignant neoplasm of the cervix DM type 2 (diabetes mellitus, type 2) (HCC) Type II or unspecified type diabetes mellitus without mention of complication, not stated as uncontrolled Screening for lipoid disorders Esophageal reflux Osteoarthrosis, unspecified whether generalized or localized, unspecified site Dysphagia Dysphagia, unspecified Leg pain, right Pain in limb SOB (shortness of breath) Shortness of breath HAMDIA (obstructive sleep apnea) Obstructive sleep apnea (adult) (pediatric) Anemia Anemia, unspecified Hyperlipidemia Other and unspecified hyperlipidemia Vitamin D deficiency Unspecified vitamin D deficiency GERD (gastroesophageal reflux disease) Esophageal reflux Obesity Obesity, unspecified Weight gain Abnormal weight gain Intolerance to heat, initial encounter Abdominal pain, chronic, epigastric Abdominal pain, epigastric documented in this encounter Discontinued Medications Medication Sig Discontinue Reason Start Date End Da te naproxen sodium (ANAPROX) 220 mg tabletIndications:Osteoart hrosis, unspecified whether generalized or localized, unspecified site,Left ankle pain Take 1 Tab by mouth as needed. DELETE-Duplicate 02/04/2014 05/31/2014 simvastatin (ZOCOR) 10 mg TAKE 1 TABLET BY MOUTH EVERY EVENING Reorder 04/08/2014 05/31/2014 ERGOCALCIFEROL, VITAMIN D2, (VITAMIN D2 ORAL) Take by mouth. Reorder 05/31/2014 fUROsemide (LASIX) 40 mg tabletIndications:Chest pain,Acute coronary syndrome (HCC),Systolic murmur,Esophageal reflux,Osteoarthrosis, unspecified whether generalized or localized, unspecified site,Dysphagia,Encounter for screening colonoscopy,Leg pain, right,SOB (shortness of breath),Chest discomfort,HAMIDA (obstructive sleep apnea) Take 1 Tab by mouth daily. Reorder 01/10/2014 05/31/2014 potassium chloride SA (K-DUR;KLOR-CON) 20 mEq tabletIndications:Chest pain,Acute coronary syndrome (HCC),Systolic murmur,Esophageal reflux,Osteoarthrosis, unspecified whether generalized or localized, unspecified site,Dysphagia,Encounter for screening colonoscopy,Leg pain, right,SOB (shortness of breath),Chest discomfort,HAMIDA (obstructive sleep apnea) Take 1 Tab by mouth daily. Reorder 01/10/2014 05/31/2014 omeprazole (PRILOSEC) 20 mg Take 1 Cap by mouth 2 times daily (before meals). Reorder 01/02/2014 05/31/2014 iron polysaccharides (FERREX 150 FORTE PLUS) 150-60-25-1 np-[id number]-[id number]-mg CapIndications:Anemia Take 1 Cap by mouth daily. Reorder 12/01/2013 05/31/2014 documented as of this encounter Care Teams Electronics Worker Relationship Specialty Start Date End Date Kate Bai DO PCP - General Internal Medicine 05/31/14 10/02/14 Garett Holt MD Internal Medicine-Gastroenterology 12/22/12 documented as of this encounter
--- OUTSIDE RECORDS SUMMARY | 2024-07-22 16:18 | XMS_ITS | Encounter Summary ---
Author Organization [place] [address] Care Team Providers Care Wagon Winder Name Role Phone Harjit Orellana DO, Viral Primary Care Provider [phone] Garett Holt MD Unavailable [phone] Reason for Visit * Reason Onset Date Comments Other 08/25/2013 Encounter Details Date Type Department Care Team (Late st Contact Info) Description 08/25/2013 Telephone [facility] [address] [address] Ruiz Stokes MD [address] [place] [address] Other Social History Tobacco Use Types Packs/Day [...] encounter Miscellaneous Notes * Telephone Encounter - Sayra Conner MA - 08/26/2013 11:40 AM EST Spoke with tow bar driver at [facility], they went ahead and gave patient antibiotics as a precaution but I did inform them that for future reference she does not need them due to the heart murmur. * Telephone Encounter - Rosemary Ruelas APRN - 08/25/2013 4:42 PM EST She does not need abx for murmur I reviewed her echo * Telephone Encounter - Sayra Conner MA - 08/25/2013 3:27 PM EST Patient is at the [facility] to have some teeth extracted, they are needing to know if she should take antibiotics before her procedure due to her heart murmur. Please advise. documented in this encounter Plan of Treatment Upcoming Encounters Date Type Department Care Team (Late st Contact Info) Description 07/29/2024 9:00 AM EST Appointment [facility] [address] [place], [place] [address] Jomar Kim MD [address] [place], [place] [id number] documented as of this encounter Visit Diagnoses Not on filedocumented in this encounter Care Teams Wagon Winder Relationship Specialty Start Date End Date Patrice Lombardi V, DO [address] [place] [address] PCP - General Family Medicine 08/10/12 04/24/14 Garett Holt MD [address] [place] [address] Internal Medicine-Gastroenterology 12/22/12 documented as of this encounter
--- OUTSIDE RECORDS SUMMARY | 2024-07-22 16:18 | XMS_ITS | Encounter Summary ---
Author Organization [place] [address] Care Team Providers Care Tankage Supervisor Name Role Phone Harjit Orellana DO, Viral Primary Care Provider [phone] Garett Holt MD Unavailable [phone] Encounter Details Date Type Department Care Team (Latest Contact Info) Description 09/21/2013 1:30 PM EST - 09/21/2013 11:59 PM [facility] Encounter [facility] [address] [place], [place] [id number] SOB (shortness of breath) Discharge Disposition: Home or Self Care Social [...] this encounter Medications at Time of Discharge omeprazole (PRILOSEC) 20 mgIndications:Epi gastric pain,Esophageal reflux Take 1 Cap by mouth daily. 90 Cap 1 05/24/2013 4 permethrin (ELIMITE) 5 % creamIndications: Scabies Apply topically See Admin Instructions for 7 days. Apply repeat in 1 week if needed. 60 g 1 09/16/2013 4 traMADol (ULTRAM) 50 mg tabletIndications :OA (osteoarthritis), Osteoarthrosis, unspecified whether generalized or localized, unspecified site Take 1 Tab by mouth 2 times daily for 10 days. 20 Tab 0 09/16/2013 4 documented as of this encounter Discharge Disposition Disposition Code Departure Means Destination Home or Self Care documented in this encounter Plan of Treatment Upcoming Encounters Date Type Department Care Team (Late st Contact Info) Description 07/29/2024 9:00 AM EST Appointment [facility] [address] [place], [place] [id number] Jomar Kim MD [address] [place] [address] documented as of this encounter Procedures Procedure Name Priority Date/Time Associated Diagnosis Comments XR CHEST PA AND LATERAL Routine 09/21/2013 1:55 PM EST SOB (shortness of breath) documented in this encounter Results * XR CHEST PA AND LATERAL (09/21/2013 1:55 PM EST) Anatomical Region Laterality Modality Chest Radiographic Faby ging 09/21/2013 1:33 PM EST Impressions 09/21/2013 2:42 PM EST IMPRESSION: No acute disease. Narrative 09/21/2013 2:42 PM EST XR CHEST PA AND LATERAL ??Sep 21, 2013 01:55:23 PM HISTORY: ??786.05-Shortness of cmdvpr-YLG-0-CM. COMPARISON: 01/16/2011. Focal linear scar in the left midlung. Lungs clear. Heart mediastinal structures within normal limits. Procedure Note Jimy Pineda MD - 09/21/2013 XR CHEST PA AND LATERAL Sep 21, 2013 01:55:23 PM HISTORY: 786.05-Shortness of pyydcr-RQI-9-CM. COMPARISON: 01/16/2011. Focal linear scar in the left midlung. Lungs clear. Heart mediastinalstructures within normal limits. IMPRESSION: No acute disease. us Viral Lombardi V, DO IMG DIAGNOSTIC IMAGING ORDERAB LES Final Result documented in this encounter Visit Diagnoses Diagnosis SOB (shortness of breath) Shortness of breath documented in this encounter Care Teams Tankage Supervisor Relationship Specialty Start Date End Date Patrice Lombardi DO [address] [place] [address] PCP - General Family Medicine 08/10/12 04/24/14 Garett Holt MD [address] [place] [address] Internal Medicine-Gastroenterology 12/22/12 documented as of this encounter
--- OUTSIDE RECORDS SUMMARY | 2024-07-22 16:18 | XMS_ITS | Encounter Summary ---
Author Organization [place] [address] Care Team Providers Care Fitness/Wellness Director Name Role Phone Garett Holt MD Unavailable [phone] Annalise Oneill MD Primary Care Provider [phone] Reason for Visit * Reason Comments Hernia ventral * Consultation (Routine) - Closed Specialty Diagnoses / Procedures Referred By Ron t Referred To Contact Diagnoses Ventral hernia Annalise Oneill MD [address] [place] [address] Phone: tel: fax: Christa Chavez MD Phone: tel: fax: Referral ID Status Reason Start Date Expiration Date Visits Re quested Visits Authorized [id number] Closed 04/11/2014 04/11/2015 1 1 Encounter Details Date Type Department Care Team (Late st Contact Info) Description 04/25/2014 2:40 PM EDT Office Visit [facility] [address] [place] [address] Christa Chavez MD [address] [place] [address] Ventral hernia (Primary Dx) Social History Tobacco Use Types [...] Reading Time Taken Comments Blood Pressure 130/90 04/25/2014 3:35 PM EDT Pulse 72 04/25/2014 3:35 PM EDT Temperature 36.4 ??C (97.6 ??F) 04/25/2014 3:35 PM ED T Respiratory Rate - - Oxygen Saturation - - Inhaled Oxygen Concentration - - Weight 125.2 kg (276 lb) 04/25/2014 3:35 PM EDT Height 160 cm (5' 3 ) 04/25/2014 3:35 PM EDT Body Mass Index 48.89 04/25/2014 3:35 PM EDT documented in this encounter Progress Notes * Christa Chavez MD - 04/25/2014 3:31 PM EDT Subjective: Patient ID: Alyssa Jamil is a 58 y.o. female. No chief complaint on file. HPI Patients past medical, family and social histories were reviewed and updated. There were no changesexcept as noted. Asked to see this patient in consultation per Dr. Oneill. 59 female, morbid obesity, with abdominalpain. Pain radiates across entire abdomen, described as debilitating. No obstructive symptoms, no masses. Reports that she was told by ER staff that her intestines were stuck in her RUQ incision. Reviewed CT with patient in detail. CT of the abdomen and pelvis with contrast including sagittal and coronal reformats March [id number] Pain, nausea, vomiting, 75 mL Isovue-370, comparison 2008 Special images of the lung bases are normal. There is a granuloma on the left. 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 CT of the abdomen Special images of the liver and spleen show no significant focal lesion. The adrenals, pancreas, and kidneys are normal. There is no para-aortic adenopathy. The abdominal bowel including the appendix is normal. There are 2 midline ventral hernias at about the level of the umbilicus. These contain only fat. CT of the pelvis There is no pelvic sidewall lymphadenopathy. The pelvic bowel is normal. There is no pelvic mass or fluid collection. IMPRESSION: Two small midline ventral hernias contain only fat. The fat in these hernias is a bit dense and could be inflamed. Allergies Allergen Reactions ??? No Known Allergies Current outpatient prescriptions:simvastatin (ZOCOR) 10 mg, TAKE 1 TABLET BY MOUTH EVERY EVENING, Disp: 30 Tab, Rfl: 3; ondansetron (ZOFRAN ODT) 4 mg disintegrating tablet, Take 1 Tab by mouth every 6 hours as needed for Nausea for up to 10 doses., Disp: 10 Tab, Rfl: 0; naproxen sodium (ANAPROX) 220 mg tablet, Take 1 Tab by mouth as needed., Disp: 90 Tab, Rfl: 1; ERGOCALCIFEROL, VITAMIN D2, (VITAMIN D2 ORAL), Take by mouth., Disp: , Rfl: fUROsemide (LASIX) 40 mg tablet, Take 1 Tab by mouth daily., Disp: 30 Tab, Rfl: 6; potassium chloride SA (K-DUR;KLOR-CON) 20 mEq tablet, Take 1 Tab by mouth daily., Disp: 30 Tab, Rfl: 6; omeprazole (PRILOSEC) 20 mg, Take 1 Cap by mouth 2 times daily (before meals)., Disp: 60 Tab, Rfl: 0; Aspirin (ASPIRIN) 81 mg, Take 1 Tab by mouth daily., Disp: 100 Tab, Rfl: 4 iron polysaccharides (FERREX 150 FORTE PLUS) 150-60-25-1 gu-gp-jzt-mg Cap, Take 1 Cap by mouth daily., Disp: 90 Cap, Rfl: 1; naproxen sodium (ANAPROX) 220 mg tablet, Take 1 Tab by mouth as needed., Disp: 90 Tab, Rfl: 1 Patient Active Problem List Diagnosis ??? Esophageal reflux ??? Osteoarthrosis, unspecified whether generalized or localized, unspecified site ??? Dysphagia ??? Encounter for screening colonoscopy ??? Leg pain, right ??? SOB (shortness of breath) ??? Systolic murmur ??? Chest discomfort ??? Chest pain ??? Acute coronary syndrome History Social History ??? Marital Status: Spouse Name: N/A Number of Children: N/A ??? Years of Education: N/A Occupational History ??? Not on file. Social History Main Topics ??? Smoking status: Former Smoker ??? Smokeless tobacco: Never Used ??? Alcohol Use: No ??? Drug Use: Not on file ??? Sexual Activity: Not on file Other Topics Concern ??? Not on file Social History Narrative ??? No narrative on file Review of Systems Constitutional: Positive for diaphoresis, appetite change and fatigue. Negative for fever, chills, activity change and unexpected weight change. HENT: Positive for hearing loss, ear pain, nosebleeds and tinnitus. Negative for congestion, sore throat, rhinorrhea, sneezing, trouble swallowing, neck pain, voice change and postnasal drip. Eyes: Negative for photophobia, pain, redness and visual disturbance. Respiratory: Positive for shortness of breath. Negative for cough, choking, chest tightness and wheezing. Cardiovascular: Positive for chest pain and leg swelling. Negative for palpitations. Gastrointestinal: Positive for abdominal pain, constipation, blood in stool, abdominal distention and rectal pain. Negative for nausea, vomiting, diarrhea and anal bleeding. Genitourinary: Positive for flank pain. Negative for dysuria, urgency, frequency and difficulty urinating. Musculoskeletal: Positive for myalgias, back pain, joint swelling, arthralgias and gait problem. Skin: Positive for rash. Negative for color change, pallor and wound. Neurological: Positive for weakness and light-headedness. Negative for dizziness, seizures, speech difficulty and numbness. Hematological: Negative for adenopathy. Bruises/bleeds easily. Psychiatric/Behavioral: Negative for hallucinations, confusion and decreased concentration. The patient is nervous/anxious. All other systems reviewed and are negative. Objective: There were no vitals filed for this visit.There is no weight on file to calculate BMI. Physical Exam Constitutional: She is oriented to person, place, and time. She appears well- developed and well-nourished. HENT: Head: Normocephalic and atraumatic. Eyes: Conjunctivae are normal. Pupils are equal, round, and reactive to light. Neck: Normal range of motion. Cardiovascular: Normal rate and regular rhythm. Pulmonary/Chest: Effort normal and breath sounds normal. Abdominal: Soft. Bowel sounds are normal. Healed RUQ incision Small midline VH x 2, non-tender Musculoskeletal: Normal range of motion. Neurological: She is alert and oriented to person, place, and time. Skin: Skin is warm. Assessment and Plan: Impression: ventral hernias, abdominal pain Plan: 1. The ventral hernias are midline, superior to the umbilicus. There are very small, and contain fat only. I do not feel that these are contributing to her pain. I also discussed that there would be a very high chance of recurrence base on her central obesity. I feel that she is at a very low risk for strangulation of her intestines. 2. After discussing the options, the patient wishes to observe this for now. Discussed signs and symptoms of obstruction and strangulation. 3. Encouraged weight loss. No Follow-up on file. documented in this encounter Plan of Treatment Upcoming Encounters Date Type Department Care Team (Late st Contact Info) Description 07/29/2024 9:00 AM EST Appointment [facility] [address] [place] [phone] Jomar Kim MD [address] [place] [address] Scheduled Referrals Name Type Priority Associated Diagnoses Orde r Schedule AMB REFERRAL TO GENERAL SURGERY Outpatient Referral Routine Ventral hernia Ordered: 04/11/2014 documented as of this encounter Visit Diagnoses Diagnosis Ventral hernia- Primary Ventral hernia, unspecified, without mention of obstruction or gangrene documented in this encounter Care Teams Fitness/Wellness Director Relationship Specialty Start Date End Date Annalise Oneill MD [address] [place] [id number] PCP - General Family Medicine 04/25/14 05/30/14 Garett Holt MD Internal Medicine-Gastroenterology 12/22/12 documented as of this encounter
--- OUTSIDE RECORDS SUMMARY | 2024-07-22 16:18 | XMS_ITS | Encounter Summary ---
Author Organization [place] [address] Care Team Providers Care Installation Tech Name Role Phone Harjit Orellana DO, Viral Primary Care Provider Garett Holt MD Unavailable [phone] Encounter Details Date Type Department Care Team (Latest Contact Info) Description 01/13/2014 11:10 AM EDT - 01/13/2014 11:59 PM EDT Hospital Encounter [facility] [address] [place] [address] Chest pain (Primary Dx); Acute coronary syndrome (HCC); Systolic murmur; Esophageal reflux; Osteoarthrosis, unspecified whether generalized or localized, unspecified site; Dysphagia; Encounter for screening colonoscopy; Leg pain, right; SOB (shortness of breath); Chest discomfort; HAMIDA (obstructive sleep apnea) Discharge Disposition: Home or Self Care Social [...] EST Appointment [facility] [address] [place], [place] [phone] Jomar Kim MD [address] [place] [address] Scheduled Orders Name Type Priority Associated Diagnoses Orde r Schedule OP VENIPUNCTURE CHARGE Lab Timed Chest pain Acute coronary syndrome (HCC) Systolic murmur Esophageal reflux Osteoarthrosis, unspecified whether generalized or localized, unspecified site Dysphagia Encounter for screening colonoscopy Leg pain, right SOB (shortness of breath) Chest discomfort HAMIDA (obstructive sleep apnea) One Time for 1 Occurrences starting 01/13/2014 until 01/13/2014 documented as of this encounter Procedures Procedure Name Priority Date/Time Associated Diagnosis Comments COMPREHENSIVE METABOLIC PANEL Routine 01/13/2014 11:20 AM EDT Chest pain Acute coronary syndrome (HCC) Systolic murmur Esophageal reflux Osteoarthrosis, unspecified whether generalized or localized, unspecified site Dysphagia Encounter for screening colonoscopy Leg pain, right SOB (shortness of breath) Chest discomfort HAMIDA (obstructive sleep apnea) documented in this encounter Results * (ABNORMAL) COMPREHENSIVE METABOLIC PANEL (01/13/2014 11:20 AM EDT) Sodium 141 136 - 145 mmol/L [facility] Potassium 4.1 3.5 - 5.0 mmol/L [facility] Chloride 100 98 - 107 mmol/L [facility] Total CO2 31(H) 22 - 29 mmol/L [facility] Anion Gap 10 7 - 16 mmol/L [facility] Calcium 9.8 8.6 - 10.2 mg/dL [facility] Glucose Lvl 107(H) 74 - 100 mg/dL [facility] BUN 13 6 - 20 mg/dL [facility] Creatinine 0.73 0.51 - 1.00 mg/dL [facility] Albumin 4.1 3.5 - 5.2 gm/dL [facility] Total Protein 7.4 6.4 - 8.3 gm/dL [facility] Bili Total 0.3 0.1 - 1.3 mg/dL [facility] AST 15 <=40 IU/L [facility] ALT 13 <=41 IU/L [facility] Alk Phos 85 35 - 104 IU/L [facility] GFR Afr Am >60 [facility] Comment: GFR is estimated using creatinine, [...] or less GFR Non Afr Am >60 [facility] Blood specimen (specimen) UPPER LIMB STRUCTURE / Unknown 01/13/2014 11:20 AM EDT 01/13/2014 2:57 PM EDT Rosemary Ruelas APRN CHEMISTRY ORDERABLES Edited Result - Final [facility] [address] [place] [address] documented in this encounter Visit Diagnoses Diagnosis Chest pain- Primary Chest pain, unspecified Acute coronary syndrome (HCC) Intermediate coronary syndrome Systolic murmur Undiagnosed cardiac murmurs Esophageal reflux Osteoarthrosis, unspecified whether generalized or localized, unspecified site Dysphagia Dysphagia, unspecified Encounter for screening colonoscopy Special screening for malignant neoplasms, colon Leg pain, right Pain in limb SOB (shortness of breath) Shortness of breath Chest discomfort Other chest pain HAMIDA (obstructive sleep apnea) Obstructive sleep apnea (adult) (pediatric) documented in this encounter Care Teams Installation Tech Relationship Specialty Start Date End Date Patrice Lombardi DO [address] [place] [address] PCP - General Family Medicine 08/10/12 04/24/14 Garett Holt MD [address] [place] [address] Internal Medicine-Gastroenterology 12/22/12 documented as of this encounter
--- OUTSIDE RECORDS SUMMARY | 2024-07-22 16:18 | XMS_ITS | Encounter Summary ---
Author Organization [place] [address] Care Team Providers Care Deckhand Shrimp Boat Name Role Phone Harjit Orellana DO, Viral Primary Care Provider [phone] Garett Holt MD Unavailable [phone] Reason for Referral * Consultation (Routine) - Closed Specialty Diagnoses / Procedures Referred By Ron bansal Referred To Contact Sleep Center Diagnoses Chest pain Acute coronary syndrome (HCC) Systolic murmur Esophageal reflux Osteoarthrosis, unspecified whether generalized or localized, unspecified site Dysphagia Encounter for screening colonoscopy Leg pain, right SOB (shortness of breath) Chest discomfort HAMIDA (obstructive sleep apnea) Rosemary Ruelas APRN Phone: tel: fax: Bijal Levine MD Referral ID Status Reason Start Date Expiration Date Visits Re quested Visits Authorized [id number] Closed 01/10/2014 07/09/2014 6 6 Scheduling Instructions If you are a patient of [facility], please contact [phone] (Toll Free [phone]) to schedule a consultation with a specialist. * Nuclear Medicine (Routine) - Closed Specialty Diagnoses / Procedures Referred By Ron bansal Referred To Contact Cardiac Diagnostic Imaging Diagnoses Chest pain Acute coronary syndrome (HCC) Systolic murmur Esophageal reflux Osteoarthrosis, unspecified whether generalized or localized, unspecified site Dysphagia Encounter for screening colonoscopy Leg pain, right SOB (shortness of breath) Chest discomfort HAMIDA (obstructive sleep apnea) Procedures NM MYOCARDIAL PERFUSION 2 DAY SPECT LEXLYNN STRESS AND REST Rosemary Ruelas APRN [address] [place] [address] Phone: tel: fax: [facility] NUC MED [address] [facility] [address] [place] [address] Phone: tel: fax: Referral ID Status Reason Start Date Expiration Date Visits Re quested Visits Authorized [id number] Closed 01/12/2014 02/11/2014 5 5 * Stress (Routine) - Closed Specialty Diagnoses / Procedures Referred By Ron bansal Referred To Contact Cardiac Diagnostic Imaging Diagnoses Chest pain Acute coronary syndrome (HCC) Systolic murmur Esophageal reflux Osteoarthrosis, unspecified whether generalized or localized, unspecified site Dysphagia Encounter for screening colonoscopy Leg pain, right SOB (shortness of breath) Chest discomfort HAMIDA (obstructive sleep apnea) Procedures ST STRESS TEST LEXISCAN Rosemary Ruelas APRN Phone: tel:[phone] fax: [facility] STRESS [address] [place] [address] Phone: tel: fax: Referral ID Status Reason Start Date Expiration Date Visits Re quested Visits Authorized [id number] Closed 01/12/2014 02/11/2014 1 1 Reason for Visit * Reason Comments Chest Pain Appt per Dr. Arevalo P/CHF Congestive Heart Failure * Consultation (Routine) - Closed Specialty Diagnoses / Procedures Referred By Ron bansal Referred To Contact Internal Medicine-Cardiovascular Disease / Cardiology Diagnoses Chest pain authorization faxed 01/06/14 Procedures consult appt 01/10/14 Diane Lombardi, Viral V, DO [address] [place] [address] Phone: tel: fax: Ruiz Stokes MD [address] [place] [address] Phone: tel: fax: Referral ID Status Reason Start Date Expiration Date Visits Re quested Visits Authorized [id number] Closed 01/06/2014 01/06/2015 24 24 Encounter Details Date Type Department Care Team (Late st Contact Info) Description 01/10/2014 12:45 PM EDT Office Visit [facility] Diane [address] [place] [id number] Ruiz Stokes MD [address] [place] [address] HAMIDA (obstructive sleep apnea) (Primary Dx); Chest pain; Acute coronary syndrome (HCC); Systolic murmur; Esophageal reflux; Osteoarthrosis, unspecified whether generalized or localized, unspecified site; Dysphagia; Encounter for screening colonoscopy; Leg pain, right; SOB (shortness of breath); Chest discomfort Social History Tobacco Use Types [...] Sign Reading Time Taken Comments Blood Pressure 136/80 01/10/2014 12:26 PM EDT Pulse 72 01/10/2014 12:26 PM EDT Temperature - - Respiratory Rate - - Oxygen Saturation - - Inhaled Oxygen Concentration - - Weight 122.5 kg (270 lb 1.6 oz) 014 12:26 PM EDT Height 162.6 cm (5' 4 ) 01/10/2014 12:2 6 PM EDT Body Mass Index 46.36 01/10/2014 12:26 PM EDT documented in this encounter Ordered Prescriptions Prescription Sig Dispense Quantity Refills Last Filled Start Date End Date potassium chloride SA (K-DUR;KLOR-CON) 20 mEq tabletIndications:C hest pain,Acute coronary syndrome (HCC),Systolic murmur,Esophageal reflux,Osteoarthros is, unspecified whether generalized or localized, unspecified site,Dysphagia,Enco unter for screening colonoscopy,Leg pain, right,SOB (shortness of breath),Chest discomfort,HAMIDA (obstructive sleep apnea) Take 1 Tab by mouth daily. 30 Tab 6 01/10/2014 05/31/2014 fUROsemide (LASIX) 40 mg tabletIndications:C hest pain,Acute coronary syndrome (HCC),Systolic murmur,Esophageal reflux,Osteoarthros is, unspecified whether generalized or localized, unspecified site,Dysphagia,Enco unter for screening colonoscopy,Leg pain, right,SOB (shortness of breath),Chest discomfort,HAMIDA (obstructive sleep apnea) Take 1 Tab by mouth daily. 30 Tab 6 01/10/2014 05/31/2014 documented in this encounter Progress Notes * Ruiz Stokes MD - 01/10/2014 12:33 PM EDT [facility] Note Ruiz Stokes MD, [facility] MAYRA Devries APRN Patient Name: Alyssa Jamil : 1955 Subjective c/o slightly more SOB Feels like has more edema in legs c/o chest tightness and usual SOB Chief Complaint Patient presents with ??? Chest Pain Appt per Dr. Lombardi-CP/CHF ??? Congestive Heart Failure HPI Alyssa Jamil is here today for a Follow up hx SOB, cp ROS Denies orthopnea, edema, presyncopal or synocopal episodes, nausea,vomiting or chills. HAMIDA? Past Medical History Diagnosis Date ??? Shortness of breath ??? Asthma ??? Other and unspecified angina pectoris ??? Heartburn nausea after eating ??? Ulcer ??? Arthritis all over ??? 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 Diabetes mellitus borderline ??? Anemia on iron Current Outpatient Rx Name Route Sig Dispense Refill ??? simvastatin (ZOCOR) 10 mg Oral Take 1 Tab by mouth every evening. 30 Tab 2 ??? omeprazole (PRILOSEC) 20 mg Oral Take 1 Cap by mouth 2 times daily (before meals). 60 Tab 0 ??? Aspirin (ASPIRIN) 81 mg Oral Take 1 Tab by mouth daily. 100 Tab 4 ??? iron polysaccharides (FERREX 150 FORTE PLUS) 150-60-25-1 sc-rp-itc-mg Cap Oral Take 1 Cap by mouth daily. 90 Cap 1 ??? naproxen sodium (ANAPROX) 220 mg tablet Oral Take 1 Tab by mouth as needed. 90 Tab 1 History Social History ??? Marital Status: Spouse Name: N/A Number of Children: N/A ??? Years of Education: N/A Occupational History ??? Not on file. Social History Main Topics ??? Smoking status: Former Smoker ??? Smokeless tobacco: Never Used ??? Alcohol Use: No ??? Drug Use: Not on file ??? Sexually Active: Not on file Other Topics Concern ??? Not on file Social History Narrative ??? No narrative on file Past Surgical History Procedure Laterality Date ??? [...] ??? Diabetes Father ??? Cancer Maternal Grandmother Objective Filed Vitals: 01/10/14 1226 BP: 136/80 Pulse: 72 Exam: GENERAL APPEARANCE: In no acute distress HEENT: Normocephalic, Atraumatic NECK: No JVD - No Bruit RESPIRATORY: Normal breath sounds bilateral HEART: Normal S1 S2- No S3, S4 No Murmur, rub or gallop VASCULAR: Normal pulses, equal, bilateral ABDOMEN: Soft, nontender, no organomegaly, no distension NEUROLOGIC: Alert, oriented X 3- Grossly intact, nonfocal SKIN: No rash EXTREMITIES: 1-2+ edema legs - No cynosis Labs Lab Results Component Value Date CHOLESTEROL 198 01/02/2014 CHOLESTEROL 202* 05/17/2013 CHOLESTEROL 201* 03/25/2013 HDL 49 01/02/2014 HDL 56 05/17/2013 HDL 58 03/25/2013 LDLCALC 125* 01/02/2014 TRIG 120 01/02/2014 TRIG 75 05/17/2013 TRIG 95 03/25/2013 Lab Results Component Value Date WBC 11.3* 01/01/2014 HGB 11.7* 01/01/2014 HCT 35.4* 01/01/2014 MCV 83.9 01/01/2014 PLT 241 01/01/2014 Lab Results Component Value Date HGBA1C 6.0* 05/17/2013 Lab Results Component Value Date NA 138 01/01/2014 K 4.5 01/01/2014 BUN 13 01/01/2014 CALCIUM 9.4 01/01/2014 CL 102 01/01/2014 CO2 31* 01/01/2014 CREATININE 0.60 01/01/2014 GLU 121* 01/01/2014 Lab Results Component Value Date ALT 15 03/25/2013 AST 20 03/25/2013 ALKPHOS 89 06/22/2012 BILITOT 0.2 06/22/2012 Assessment Patient Active Problem List Diagnosis Date Noted ??? Chest pain 01/01/2014 Priority: High Class: Acute ??? Acute coronary syndrome 01/01/2014 Priority: High Class: Acute ??? Chest discomfort 03/15/2013 ??? Leg pain, right 03/12/2013 ??? SOB (shortness of breath) 03/12/2013 ??? Systolic murmur 03/12/2013 ??? Dysphagia 02/17/2013 ??? Encounter for screening colonoscopy 02/17/2013 ??? Esophageal reflux ??? Osteoarthrosis, unspecified whether generalized or localized, unspecified site Impression c/o slightly more SOB Feels like has more edema in legs c/o chest tightness and usual SOB EKG 01/02/14 rate 55 no acute ischemic changes 1-2+ edema legs / wt up 4# BUN 13 creatinine 0.6 on 01/01/14 04/16/13 Lexiscan Small reversible anterio-lateral reversible defect. Fixed inferior wall defect noted with normal wall motion thus most likely secondary to diaphragmatic artifact. Normal left ventricular wall motion and contractility. Nondiagnostic ekg with Lexiscna protocol 03/20 echo unremarkable HAMIDA? Refer to sleep clinic HLD LDL 125 On Zocor Discussed nutrition, including low salt diet, and moderate exercise. Plan On 01/01/14 she was in ED with vague generalized pain, intermittent chest pain and dyspnea, Today she c/o slightly more SOB / fluid in legs / 1-2+ edema legs / wt up 4# c/o occas chest tightness Lexiscan soon Lasix 40 mg daily with KCL 20 meq daily for one week HAMIDA? / Refer to sleep clinic Fu in approx one week CMP PTV Rosemary Ruelas APRN MOVEMENT THERAPIST Thank you for allowing me to participate in the care of your patients. Please call with any concerns or questions Ruiz Stokes MD [facility] documented in this encounter Miscellaneous Notes * Patient Instructions - Nieves Ribeiro MA - 01/10/2014 12:25 PM EDT You may be contacted by mail or e-mail to participate in a patient satisfaction survey regarding your office visit today. We value your opinion and depend on your feedback to make improvements and provide you with the best possible experience while receiving high quality medical treatment. Your time in completing this survey is greatly appreciated. Plan On 01/01/14 she was in ED with vague generalized pain, intermittent chest pain and dyspnea, Today she c/o slightly more SOB / fluid in legs / 1-2+ edema legs / wt up 4# c/o occas chest tightness Lexiscan soon Lasix 40 mg daily with KCL 20 meq daily for one week Fu in approx one week CMP PTV documented in this encounter Plan of Treatment Upcoming Encounters Date Type Department Care Team (Late st Contact Info) Description 07/29/2024 9:00 AM EST Appointment [facility] [address] [place] [address] Jomar Kim MD [address] [place] [address] Scheduled Referrals Name Type Priority Associated Diagnoses Orde r Schedule AMB REFERRAL TO SLEEP STUDIES Outpatient Referral Routine Chest pain Acute coronary syndrome (HCC) Systolic murmur Esophageal reflux Osteoarthrosis, unspecified whether generalized or localized, unspecified site Dysphagia Encounter for screening colonoscopy Leg pain, right SOB (shortness of breath) Chest discomfort HAMIDA (obstructive sleep apnea) Ordered: 01/10/2014 documented as of this encounter Results * NM MYOCARDIAL PERFUSION 2 DAY SPECT LEXISCAN STRESS AND REST (01/13/2014 12:51 PM EDT) Anatomical Region Laterality Modality Nuclear Medicine 01/12/2014 2:14 PM EDT Impressions 01/13/2014 1:02 PM EDT SPECT RESULTS Technical Quality: ?? Technically adequate study Raw Data Analysis: ?? No clinically relevant artifact Perfusion: ?Homogeneous uptake of isotope throughout the left ventricle on both stress and rest images. ? Stress and rest perfusion images are normal. ? Reversible defects absent. ?? FUNCTION (calculated via Gated SPECT) ?Post Stress LV EF:64 ?% ?TID: ??0.85 EDV: ? 68 ?ml ? (70-100 ml) ?ESV: ?25 ?ml ? (30-50 ml) EDVI: ?28 ?ml/m? ??(30-50 ml/m?) ?ESVI: ? 10 ?ml/m? ??(15-30 ml/m?) Technical Quality: ?Gated SPECT appears to be visually accurate LV Size & Function: ?? Normal left ventricular wall motion and contractility. ?? IMPRESSIONS Stress and rest perfusion images are normal. ?? Reversible defects absent. ?? Normal left ventricular wall motion and contractility. ?? Nondiagnostic ekg with Lexiscan protocol ?? Narrative Procedure Note Ruiz Stokes MD - 01/13/2014 IMPRESSION SPECT RESULTS Technical Quality: Technically adequate study Raw Data Analysis: No clinically relevant artifact Perfusion: Homogeneous uptake of isotope throughout the leftventricle on both stress and rest images. Stress and rest perfusion images are normal. Reversible defects absent. FUNCTION (calculated via Gated SPECT) Post Stress LV EF:64 %TID: 0.85 EDV: 68 ml (70-100 ml) ESV: 25 ml(30-50 ml) EDVI: 28 ml/m? (30-50 ml/m?) ESVI: 10ml/m? (15-30 ml/m?) Technical Quality: Gated SPECT appears to be visually accurate LV Size & Function: Normal left ventricular wall motion andcontractility. IMPRESSIONS Stress and rest perfusion images are normal. Reversible defects absent. Normal left ventricular wall motion and contractility. Nondiagnostic ekg with Lexiscan protocol Rosemary Ruelas APRN IMG NM CARDIAC ORDERABLES Fi nal Result * (ABNORMAL) COMPREHENSIVE METABOLIC PANEL (01/13/2014 11:20 AM EDT) Sodium 141 136 - 145 mmol/L [facility] Potassium 4.1 3.5 - 5.0 mmol/L [facility] Chloride 100 98 - 107 mmol/L [facility] Total CO2 31(H) 22 - 29 mmol/L [facility] Anion Gap 10 7 - 16 mmol/L [facility] Calcium 9.8 8.6 - 10.2 mg/dL [facility] Glucose Lvl 107(H) 74 - 100 mg/dL [facility] BUN 13 6 - 20 mg/dL [facility] Creatinine 0.73 0.51 - 1.00 mg/dL [facility] Albumin 4.1 3.5 - 5.2 gm/dL [facility] Total Protein 7.4 6.4 - 8.3 [...] - Final [facility] [address] [place] [address] * ST STRESS TEST LEXISCAN (01/12/2014 3:22 PM EDT) Anatomical Region Laterality Modality Cardiac Stress T esting 01/12/2014 1:36 PM EDT Rosemary Ruelas APRN IMG STRESS ORDERABLES Final Result documented in this encounter Visit Diagnoses Diagnosis HAMIDA (obstructive sleep apnea)- Primary Obstructive sleep apnea (adult) (pediatric) Chest pain Chest pain, unspecified Acute coronary syndrome (HCC) Intermediate coronary syndrome Systolic murmur Undiagnosed cardiac murmurs Esophageal reflux Osteoarthrosis, unspecified whether generalized or localized, unspecified site Dysphagia Dysphagia, unspecified Encounter for screening colonoscopy Special screening for malignant neoplasms, colon Leg pain, right Pain in limb SOB (shortness of breath) Shortness of breath Chest discomfort Other chest pain Chest pain Chest pain, unspecified Acute coronary [...] (pediatric) documented in this encounter Care Teams Deckhand Shrimp Boat Relationship Specialty Start Date End Date Patrice Lombardi DO [address] [place] [address] PCP - General Family Medicine 08/10/12 04/24/14 Garett Holt MD [address] [place] [address] Internal Medicine-Gastroenterology 12/22/12 documented as of this encounter
--- OUTSIDE RECORDS SUMMARY | 2024-07-22 16:18 | XMS_ITS | Encounter Summary ---
Author Organization [facility] [place] [address] Care Team Providers Care Slimer Name Role Phone Harjit Orellana DO, Viral Primary Care Provider [phone] Garett Holt MD Unavailable [phone] Reason for Visit * Nuclear Medicine (Routine) - Closed Specialty Diagnoses / Procedures Referred By Ron bansla Referred To Contact Cardiac Diagnostic Imaging Diagnoses Chest pain Acute coronary syndrome (HCC) Systolic murmur Esophageal reflux Osteoarthrosis, unspecified whether generalized or localized, unspecified site Dysphagia Encounter for screening colonoscopy Leg pain, right SOB (shortness of breath) Chest discomfort HAMIDA (obstructive sleep apnea) Procedures NM MYOCARDIAL PERFUSION 2 DAY SPECT LEXISCAN STRESS AND REST Rosemary Ruelas, ROUTE DRIVER SALESPERSON [address] [place] [address] Phone: tel: fax: [address] [place] [address] Phone: tel: fax: Referral ID Status Reason Start Date Expiration Date Visits Re quested Visits Authorized [id number] Closed 01/12/2014 02/11/2014 5 5 Encounter Details Date Type Department Care Team (Latest Contact Info) Description 01/12/2014 1:00 PM EDT - 01/12/2014 1:11 PM EDT Hospital Encounter [facility] [address] [place] [address] Rosemary Ruelas APRN [address] [place] [address] Chest pain; Acute coronary syndrome (HCC); Systolic [...] AM EST Appointment [facility] [address] [place] [address] Jomar Kim MD [address] [place] [address] documented as of this encounter Procedures Procedure Name Priority Date/Time Associated Diagnosis Comments NM MYOCARDIAL PERFUSION 2 DAY SPECT LEXISCAN STRESS AND REST Routine 01/13/2014 12:51 PM EDT Chest pain Acute coronary syndrome (HCC) Systolic murmur Esophageal reflux Osteoarthrosis, unspecified whether generalized or localized, unspecified site Dysphagia Encounter for screening colonoscopy Leg pain, right SOB (shortness of breath) Chest discomfort HAMIDA (obstructive sleep apnea) documented in this encounter Results * NM MYOCARDIAL PERFUSION [...] wall motion and contractility. Nondiagnostic ekg with Ladera Labsan protocol Rosemary Ruelas ROUTE DRIVER SALESPERSON IMG NM CARDIAC ORDERABLES Fi nal Result documented in this encounter Visit Diagnoses Diagnosis Chest pain Chest pain, unspecified Acute coronary [...] apnea (adult) (pediatric) documented in this encounter Administered Medications Inactive Administered Medications - up to 1 most recent administrations Medication Order MAR Action Action Date Dose Rate Site Tc-99m tetrofosmin (MYOVIEW) injection 29 magdalena Curie 29 millicurie, Intravenous, ONCE PRN, 1 dose, Starting on Fri01/12/14 at 1517, Until Fri01/12/14 at 1347, Radiology Procedure, Administration dose must be within 10% of the ordered dose for radiopharmaceutical medications., Radiology Given 01/12/2014 1:47 PM EDT 29 millicuries Right Arm documented in this encounter Care Teams Slimer Relationship Specialty Start Date End Date Patrice Lombardi DO [address] [place] [phone] PCP - General Family Medicine 08/10/12 04/24/14 Garett Holt MD [address] [place], [place] [address], [place] [address] Internal Medicine-Gastroenterology 12/22/12 documented as of this encounter
--- OUTSIDE RECORDS SUMMARY | 2024-07-22 16:18 | XMS_ITS | Encounter Summary ---
Author Organization [place] [address] Care Team Providers Care Side Door Man Name Role Phone Harjit Orellana DO, Viral Primary Care Provider [phone] Garett Holt MD Unavailable [phone] Reason for Visit * Reason Onset Date Comments Other 08/25/2013 Encounter Details Date Type Department Care Team (Late Contact Info) Description 08/25/[address] [address] Aleksandra Kumar RMA Other Social History Tobacco Use Types Packs/Day [...] encounter Miscellaneous Notes * Telephone Encounter - Aleksandra Kumar RMA - 09/02/2013 11:45 AM EST Other documented in this encounter Plan of Treatment Upcoming Encounters Date Type Department Care Team (Late st Contact Info) Description 07/29/2024 9:00 AM EST Appointment [facility] [address] [place], [place] [id number] Jomar Kim MD [address] [place] [address] documented as of this encounter Visit Diagnoses Not on filedocumented in this encounter Care Teams Side Door Man Relationship Specialty Start Date End Date Patrice Lombardi DO [address] [place] [address] PCP - General Family Medicine 08/10/12 04/24/14 Garett Holt MD [address] [place] [address] Internal Medicine-Gastroenterology 12/22/12 documented as of this encounter
--- OUTSIDE RECORDS SUMMARY | 2024-07-22 16:18 | XMS_ITS | Encounter Summary ---
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 Name Role Phone Harjit Orellana DO, Viral Primary Care Provider [phone] Garett Holt MD Unavailable [phone] Reason for Referral * (Routine) - Closed Specialty Diagnoses / Procedures Referred By Ron bansal Referred To Contact Diagnoses Chest pain Acute coronary syndrome (HCC) Esophageal reflux Dysphagia Procedures NM MYOCARDIAL PERFUSION SPECT STRESS AND REST Chantell Hoang MD Phone: tel: fax: Referral ID Status Reason Start Date Expiration Date Visits Re quested Visits Authorized [id number] Closed 01/02/2014 07/01/2014 5 5 Reason for Visit * Reason Comments Chest Pain pain in upper back a nd chest aching, pain when got up had trouble walking pain in back from hips up to neck * Auth/Cert/Inpt Specialty Diagnoses / Procedures Referred By Ron bansal Referred To Contact Diagnoses Chest pain Referral ID Status Reason Start Date Expiration Date Visits Re quested Visits Authorized [id number] 1 1 Encounter Details Date Type Department Care Team (Late st Contact Info) Description 01/01/2014 3:55 PM EDT - 01/02/2014 1:41 PM EDT Emergency [facility] [address] [facility] [address] [place] [address] Alex Gonzalez MD [address] [place] [id number] Chantell Hoang MD [address] [facility] [place] [address] Chest pain (Primary Dx); Acute coronary syndrome (HCC); SOB (shortness of breath); Epigastric pain; Esophageal reflux; Dysphagia Discharge Disposition: Home or Self Care Social [...] Sign Reading Time Taken Comments Blood Pressure 136/72 01/02/2014 7:58 AM EDT Pulse 55 01/02/2014 7:58 AM EDT Temperature 36.7 ??C (98.1 ??F) 01/02/2014 7:58 AM ED T Respiratory Rate 18 01/02/2014 7:58 AM EDT Oxygen Saturation 100% 01/02/2014 7:58 AM EDT Inhaled Oxygen Concentration - - Weight 120.7 kg (266 lb 1 oz) 01/01/2014 7:53 PM EDT Height 162.6 cm (5' 4 ) 01/01/2014 7:53 PM EDT Body Mass Index 45.67 01/01/2014 7:53 PM EDT documented in this encounter Discharge Summaries * Chantell Hoang MD - 01/02/2014 11:49 AM EDT [facility] Discharge Summary Patient Name: Alyssa Jamil : 1955 Admit Date: 01/01/2014 Discharge Date: 01/02/2014 Admitting Physician: Chantell Hoang MD Discharge Physician: Chantell Hoang MD Reason for Hospitalization: Active Hospital Problems Chest pain Acute coronary syndrome SOB (shortness of breath) Hospital Course/Significant Findings: Ms. Jamil came with vague generalized pain and intermittent chest pain and dyspnea. Couldn't go to PCP due to transportation issues. Also had left leg chronic swelling for which xrays were done. observed overnight, cardiac enzymes were normal and her symptoms had subsided. Discussed with her. Called her son at [phone] and updated him on her condition, normal cardiac enzymes, right forehead bump to be treated with icepack and naproxen, increase prilosec twice daily for heart burn. Outpatient stress test later in the week and follow up with Dr. Lombardi later in the week. Also discussedxray results with chronic fracture and subluxation and how she needs to follow up with Dr. Harjit kayee referred to orthopedics for that Discharge Exam: BP 136/72 Pulse 55 Temp(Src) 98.1 ??F (36.7 ??C) (Oral) Resp 18 Ht 5' 4 (1.626 m) Wt 266lb 1 oz (120.685 kg) BMI 45.65 kg/m2 SpO2 100% ? No I/O last 3 completed shifts: In: 960 [P.O.:960] Out: - Weight - Scale: 266 lb 1 oz (120.685 kg) General appearance: NAD AA&OX3. obese HEENT: PERRLA EOMI, poor dentition with missing teeth. no JVD, neck supple. Right forehead redness that appeared overnight and is mildly tender Cardiovascular: RRR. S1+S2+0 Lungs: CTA Bilaterally. No rales or rhonchi Abdomen: positive bowel sounds, soft, non-tender to palpation Extremities: trace edema right leg and 1+ in left leg. Pulses 1+ bilaterally in upper/lower extremities. Neuro: no focal neurological deficits Skin: warm,dry Discharge Diagnoses: Chest pain Acute coronary syndrome SOB (shortness of breath) GERD Left Tibio-talar subluxation Condition at Discharge: stable Disposition: home Discharge Medications:: Medication List START taking these medications Aspirin 81 mg Dose: 81 mg Qty: 100 Tab Refills: 4 Commonly known as: aspirin 81 mg, Oral, DAILY CHANGE how you take these medications omeprazole 20 mg Dose: 20 mg Qty: 60 Tab Refills: 0 Commonly known as: PriLOSEC 20 mg, Oral, 2 TIMES DAILY BEFORE MEALS What changed: when to take this CONTINUE taking these medications iron polysaccharides 150-60-25-1 pb-vt-mxj-mg Cap Dose: 1 Cap Qty: 90 Cap Refills: 1 Commonly known as: FERREX 150 FORTE PLUS 1 Cap, Oral, DAILY naproxen sodium 220 mg tablet Dose: 220 mg Qty: 90 Tab Refills: 1 Commonly known as: ANAPROX 220 mg, Oral, PRN Where to Get Your Medications You need to rock picker these prescriptions. We sent them to a specific pharmacy, so go there to get them. [facility] [place] [address] - [address] - [phone] - Aspirin 81 mg - omeprazole 20 mg [address] [facility] [address] Follow Up: Patrice Lombardi V, DO [address] [facility] [address] In 3 days Signed: Chantell Hoang MD 01/02/2014 11:49 AM documented in this encounter Discharge Instructions * Discharge Instructions* Chantell Hoang MD - 01/02/2014 12:16 PM EDT right forehead bump needs to be treated with icepack and naproxen increase prilosec twice daily for heart burn. Outpatient stress test later in the week (order written) follow up with Dr. Lombardi later in the week. Also discussed xray results with chronic fracture and subluxation and how she needs to follow up with Dr. Lombardi to be referred to orthopedics for that documented in this encounter Ordered Prescriptions Prescription Sig Dispense Quantity Refills Last Filled Start Date End Date Aspirin (ASPIRIN) 81 mg Take 1 Tab by mouth daily. 100 Tab 4 01/02/2014 07/01/2017 omeprazole (PRILOSEC) 20 mg Take 1 Cap by mouth 2 times daily (before meals). 60 Tab 0 01/02/2014 05/31/2014 documented in this encounter Discharge Disposition Disposition Code Departure Means Destination Home or Self Mcfp documented in this encounter Progress Notes * Shellie Ruano RN - 01/02/2014 1:41 PM EDT Patient alert and oriented, sitting up in chair waiting on family to come take her home. Went over discharge instructions thoroughly with patient. Patient stated she had no questions. * Valery Amin RN - 01/02/2014 6:59 AM EDT Pt admitted to this unit via ER with c/o chest pain and difficulty walking with generalized pain approximately one week. Pt complained of slight tightness in chest and some abdominal pain. Denied need for pain medication. Pt up independently. Encouraged to utilize call light Call light within reach. NPO since midnight for lipid draw. Monitor/support. documented in this encounter H&P Notes * Chantell Hoang MD - 01/01/2014 11:32 PM EDT [facility] History and Physical Name: Alyssa Jamil : 1955 AGE: 58 y.o. Referring Physician: Patrice Lombardi DO Date of Admit: 01/01/2014 SUBJECTIVE Chief Complaint: chest pain History of Present Illness: Seen in the ED at 1815 hrs. Ms. Jamil came to the ED because of intermittent chest pain which lasts for 15-20 minutes throughout the day. Unsure about dyspnea, no headache, diaphoresis, nausea or vomiting. This morning she she felt weak and could not get out of bed. Shealso had vague generalized weakness. No fever or chills, poor historian. She was dizzy as well. Occasional belching. Worked up in the ED and admitted for chest pain. Stress test 9 months ago. Past Medical History Diagnosis Date ??? Shortness [...] Garett Holt MD; Location: [facility]; Service: Prescriptions prior to admission Medication Sig Dispense Refill ??? iron polysaccharides (FERREX 150 FORTE PLUS) 150-60-25-1 nu-nx-str-mg Cap Take 1 Cap by mouth daily. 90 Cap 1 ??? naproxen sodium (ANAPROX) 220 mg tablet Take 1 Tab by mouth as needed. 90 Tab 1 ??? omeprazole (PRILOSEC) 20 mg Take 1 Cap by mouth daily. 90 Cap 2 ??? omeprazole (PRILOSEC) 20 mg Take 1 Cap by mouth daily. 90 Cap 1 Allergies: Allergies Allergen Reactions ??? No Known Allergies Social History: Smoking:quit tobacco use Alcohol:none Drugs:denies Marital Status: Family History Problem Relation Age of Onset ??? Heart Disease Father Review of Systems: The listed systems were reviewed and reveal the following in addition to any already discussed in the HPI: ?? Constitutional: malaise and fatigue ?? Eyes: no changes in acuity, double vision or dry eyes ?? HENT: no hoarseness, no sore throat, no mouth sores, no congestion, no epistaxis ?? Lungs: shortness of breath ?? Cardiovascular: chest pain ?? Endocrine: no polyuria, no polydipsia ?? GI: no abdominal pain, no nausea, no vomiting, no diarrhea, no hematochezia ?? : no additional concerns noted ?? Musculoskeletal: muscle aches and muscle weakness ?? Neurologic: no additional concerns noted ?? Skin: no additional concern noted ?? Psychiatric: no additional concerns noted ?? Hematologic/Allergic: no additional concerns noted OBJECTIVE Physical Exam: Patient Vitals for the past 24 hrs: BP Temp Temp src Pulse Resp SpO2 Height Weight 01/01/14 1953 120/65 mmHg 97.8 ??F (36.6 ??C) Oral 59 16 98 % 5' 4 (1.626 m) 266 lb 1 oz (120.685 kg) 01/01/14 1822 133/75 mmHg - - 75 19 99 % - - 01/01/14 1720 160/65 mmHg - - 72 17 100 % - - 01/01/14 1601 162/89 mmHg 98.3 ??F (36.8 ??C) Oral 84 18 97 % 5' 4 (1.626 m) 283 lb (128.368 kg) Body mass index is 45.65 kg/(m^2). Body surface area is 2.21 meters squared. ?? General: Alyssa appears alert, well developed, well nourished, in no acute distress. obese ?? Skin: warm, well perfused and no rashes ?? Head: Normocephalic, without obvious abnormality, atraumatic ?? Eyes: Pupils equal, round and reactive to light and Extraocular movements intact ?? ENT: several missing teeth ?? Neck: neck is supple and there is full active range of motion ?? Breast: not examined ?? Lungs: clear to auscultation bilaterally ?? Cardiac: heart tones normal S1, S2 regular rate and rhythm ?? Abdomen: abdomen is soft, nontender, and nondistended without hepatosplenomegaly or masses, normoactive bowel sounds are present, there are no peritoneal signs ?? Back: symmetric, no curvature. ROM normal. No CVA tenderness. ?? : not examined ?? Lymphadenopathy: normal and no adenopathy noted ?? Musculoskeletal/Ext: normal muscle bulk with no contractures or deformities, Edema: None ?? Neurological: normal without focal findings and mental status, speech normal, alert and orientedx3 Labs: CBC: Recent Labs 01/01/14 1658 WBC 11.3* RBC 4.22 HGB 11.7* HCT 35.4* MCV 83.9 MCH 27.7 RDW 14.8 PLT 241 MPV 8.0 Renal: Recent Labs 01/01/14 1658 NA 138 K 4.5 CL 102 CO2 31* BUN 13 CREATININE 0.60 CALCIUM 9.4 GFRAFRAM >60 GFRNONAFRAM >60 GLU 121* Lab Results Component Value Date TROPT <0.01 01/01/2014 U/A: Radiology: Xr Chest Pa And Lateral 01/01/2014 XR CHEST PA AND LATERAL Jan 01, 2014 05:09:29 PM Clinical: -CHEST PAIN COMPARISONS: 09/21/13. FINDINGS: The lungs are clear. The costophrenic sulci are sharp. The heart and mediastinal contours are normal. There are no acute osseous findings in the chest. 01/01/2014 IMPRESSION: No acute radiographic cardiopulmonary disease. Xr Ankle Left Ap Lateral And Oblique 01/01/2014 XR ANKLE LEFT AP LATERAL AND OBLIQUE Jan 01, 2014 07:28:39 PM Clinical: -left ankle pain swelling, fall COMPARISONS: 03/12/13. FINDINGS: There is lateral subluxation of the talus in relation to the tibia. This is unchanged from the prior study. There are are remote fracture deformities ofthe lateral malleolus. There is tibiotalar joint space narrowing and osteophyte formation, similar to prior study. There are no acute fractures. 01/01/2014 IMPRESSION: Osteoarthritis of the tibiotalar joint. 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 relation to the tibia. There is no acute fracture. Ek Ekg 12 Lead 01/01/2014 NOTICE: Preliminary Tracing available for review; Final Interpretation by physician to follow. Assessment/Plan: Patient Active Problem List Diagnosis ??? Esophageal reflux ??? Osteoarthrosis, unspecified whether generalized or localized, unspecified site ??? Dysphagia ??? Encounter for screening colonoscopy ??? Leg pain, right ??? SOB (shortness of breath) ??? Systolic murmur ??? Chest discomfort ??? Chest pain ??? Acute coronary syndrome Chest pain: may be acute coronary syndrome but GERD, musculoskeletal pain and anxiety are in the differential. Serial cardaic enzymes and repeat EKG. Stress test not possible over the weekend, hence she would be sent home with an order for outpatient stress test. Will increase PPI dose and give GI cocktail in AM. If symptoms dont resolve, will contact cardiology. Prophylaxis: lovenox Chantell Hoang MD 01/01/2014 11:32 PM documented in this encounter ED Notes * Bre David RN - 01/01/2014 7:35 PM EDT Patient alert and oriented, denies pain at this time. Skin warm and dry, respirations easy, skin appropriate color. Patient transported to TCU via stretcher and EDT Miller * Roxi Simmons RN - 01/01/2014 7:23 PM EDT Report given to MATT Rasmussen on TCU. Ready for patient admission. * Jameson Akers - 01/01/2014 6:[address] Gonzalez talked to Dr. Hoang about patient for admission * Alex Gonzalez MD - 01/01/2014 4:35 PM EDT Chief Complaint Patient presents with ??? Chest Pain pain in upper back and chest aching, pain when got up had trouble walking pain in back from hips upto neck HPI Comments: Patient overall is a very poor and very vague historian. Patient is a 58-year-old female tells me that she hasn't seen her doctor and months because she has trouble going to see him. She states that over the last couple days she's had some intermittent chest achiness that lasted 15-20minutes. She's had multiple episodes of this off and on over the last day. States when she woke up this morning she felt stiff and sore everywhere just became very lightheaded and dizzy she at times felt short of breath. She also has some pain in her back her arms and occasionally in her abdomen. The pain all over her body gets worse with movement better with rest. She occasionally has some belching and burping. She presents here for further admission and treatment. Risk factors include obesity, patient has borderline diabetes. No history of hypertension or elevated cholesterol. No history of any known ischemic heart disease. Patient is an ex-smoker she does not drink she is worse on . Her only meds at this time are Naprosyn The history is provided by the patient. Allergies Allergen Reactions ??? No Known Allergies Home Medications: Prior to Admission medications Medication Sig Start Date End Date Taking? Authorizing Provider iron polysaccharides (FERREX 150 FORTE PLUS) 150-60-25-1 ku-ar-fas-mg Cap Take 1 Cap by mouth daily. 12/01/13 Yes Lombardi, Viral V, DO naproxen sodium (ANAPROX) 220 mg tablet Take 1 Tab by mouth as needed. 12/01/13 Yes Lombardi, Viral V, DO omeprazole (PRILOSEC) 20 mg Take 1 Cap by mouth daily. 12/01/13 Lombardi, Viral V, DO omeprazole (PRILOSEC) 20 mg Take 1 Cap by mouth daily. 05/24/13 Lombardi, Viral V, DO Past Medical History: Past Medical History Diagnosis Date ??? Shortness of breath ??? Asthma ??? Other and unspecified angina pectoris ??? Heartburn nausea after eating ??? Ulcer ??? Arthritis all over ??? 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 Diabetes mellitus borderline ??? Anemia on iron Social History: reports that she has never smoked. She has never used smokeless tobacco. She reports that she does not drink alcohol. Family History: Family History Problem Relation Age of Onset ??? Heart Disease Father Surgical History: Past Surgical History Procedure Laterality Date ??? Cholecystectomy ??? Colonoscopy ??? Upper gastrointestinal endoscopy ??? Upper gastrointestinal endoscopy 02/17/2013 Surgeon: Garett Holt MD; Location: [facility]; Service: ??? Colonoscopy 02/17/2013 Surgeon: Garett Holt MD; Location: [facility]; Service: Review of Systems All other systems reviewed and are negative. Blood pressure 162/89, pulse 84, temperature 98.3 ??F (36.8 ??C), temperature source Oral, resp. rate 18, height 5' 4 (1.626 m), weight 283 lb (128.368 kg), SpO2 97.00%. Physical Exam Nursing note and vitals reviewed. Constitutional: She is oriented to person, place, and time. She appears well- developed and well-nourished. No distress. HENT: Mouth/Throat: Oropharynx is clear and moist. Eyes: Conjunctivae and EOM are normal. Pupils are equal, round, and reactive to light. Neck: Normal range of motion. Neck supple. Patient some tenderness diffusely in the trapezius and the possible source of the thoracic spine Cardiovascular: Normal rate and regular rhythm. Exam reveals no gallop and no friction rub. No murmur heard. Pulmonary/Chest: Effort normal and breath sounds normal. She exhibits tenderness. Patient has some tenderness in the costochondral area bilaterally Abdominal: Soft. Bowel sounds are normal. She exhibits no distension. There is no tenderness. Musculoskeletal: She exhibits no edema. Lymphadenopathy: She has no cervical adenopathy. Neurological: She is alert and oriented to person, place, and time. Skin: Skin is warm and dry. No rash noted. Psychiatric: She has a normal mood and affect. Procedures Radiology/EKG/Labs: EKG revealed sinus rhythm. Some very minor nonspecific changes noted in the inferior lateral leads and nonspecific. Heart rate is 81 Results for orders placed during the hospital encounter of 01/01/14 XR CHEST PA AND LATERAL Narrative: XR CHEST PA AND LATERAL Jan 01, 2014 05:09:29 PM Clinical: -CHEST PAIN COMPARISONS: 09/21/13. FINDINGS: The lungs are clear. The costophrenic sulci are sharp. The heart and mediastinal contours are normal. There are no acute osseous findings in the chest. Impression: IMPRESSION: No acute radiographic cardiopulmonary disease. CBC WITH AUTO DIFF Result Value Range WBC 11.3 (*) 4.0 - 11.0 x10(3)/mcL RBC 4.22 3.80 - 5.10 x10(6)/mcL Hgb 11.7 (*) 12.0 - 15.6 gm/dL Hct 35.4 (*) 35.7 - 45.9 % MCV 83.9 82.5 - 99.8 fL MCH 27.7 27.0 - 34.3 pg MCHC 33.0 32.1 - 35.3 gm/dL RDW 14.8 11.5 - 15.0 % Platelet 241 144 - 423 x10(3)/mcL MPV 8.0 6.8 - 10.8 fL BASIC METABOLIC PANEL Result Value Range Sodium 138 136 - 145 mmol/L Potassium 4.5 3.5 - 5.0 mmol/L Chloride 102 98 - 107 mmol/L Total CO2 31 (*) 22 - 29 mmol/L Anion Gap 5 (*) 7 - 16 mmol/L Calcium 9.4 8.6 - 10.2 mg/dL Glucose Lvl 121 (*) 74 - 100 mg/dL BUN 13 6 - 20 mg/dL Creatinine 0.60 0.51 - 1.00 mg/dL GFR Afr Am >60 GFR Non Afr Am >60 NT PROBNP Result Value Range NT Pro-BNP 53 <=319 pg/mL TROPONIN-T Result Value Range Troponin-T <0.01 <=0.02 ng/mL DIFFERENTIAL Result Value Range Neut Percent 70.8 Lymph Percent 17.8 Adams Percent 8.4 Eos Percent 2.2 Baso Percent 0.8 Neut# 8.0 (*) 1.8 - 7.7 x10(3)/mcL Lymph# 2.0 0.6 - 4.8 x10(3)/mcL Adams# 0.9 0.0 - 1.3 x10(3)/mcL Eos# 0.2 0.0 - 0.5 x10(3)/mcL Baso# 0.1 0.0 - 0.2 x10(3)/mcL EK EKG 12 LEAD Narrative: NOTICE: Preliminary Tracing available for review; Final Interpretation by physician to follow. ED Course: Appropriate laboratory and radiology studies reviewed Patient seen and evaluated. Patient is very poor and vague historian. Her chest discomfort could BeReflux. Cause of her obesity , borderline diabetes, and slightly elevated blood pressure was thought best to admit her for serial enzymes to insure she has not had a cardiac event. Patient will be continued on her Prilosec. She did receive aspirin while in the emergency department and this will be continued. She will be further evaluated as an indicated. This case discussed with Dr. Hoang ED Clinical Impression: acute chest pain exact etiology undetermined rule out ischemic heart disease Critical Care time Condition at Discharge/Transfer from Department: Stable This chart was completed using voice recognition technology and may contain unintended errors Alex Gonzalez MD 01/01/14 1787 documented in this encounter Plan of Treatment Upcoming Encounters Date Type Department Care Team (Late st Contact Info) Description 07/29/2024 9:00 AM EST Appointment [facility] [address] [place] [address] Jomar Kim MD [address] [place] [address] Scheduled Orders Name Type Priority Associated Diagnoses Orde r Schedule NM MYOCARDIAL PERFUSION SPECT STRESS AND REST Imaging Routine Chest pain Acute coronary syndrome (HCC) Esophageal reflux Dysphagia Expected: 01/05/2014, Expires: 01/03/2016 documented as of this encounter Procedures Procedure Name Priority Date/Time Associated Diagnosis Comments SCANNED RHYTHM STRIPS 01/04/2014 12:48 AM EDT EK EKG 12 LEAD Routine 01/02/2014 7:39 AM EDT LIPID SCREEN Routine 01/02/2014 6:13 AM EDT TROPONIN-T Timed 01/02/2014 12:09 AM EDT XR ANKLE LEFT AP LATERAL AND OBLIQUE JORGE LUIS 01/01/2014 7:28 PM EDT TROPONIN-T Timed 01/01/2014 7:00 PM EDT IP CONSULT TO HOSPITALIST Routine 01/01/2014 6:19 PM EDT XR CHEST PA AND LATERAL STAT 01/01/2014 5:09 PM EDT TROPONIN-T STAT 01/01/2014 4:58 PM EDT DIFFERENTIAL STAT 01/01/2014 4:58 PM EDT CBC WITH DIFF STAT 01/01/2014 4:58 PM EDT NT PROBNP STAT 01/01/2014 4:58 PM EDT BASIC METABOLIC PANEL STAT 01/01/2014 4:58 PM EDT EK EKG 12 LEAD STAT 01/01/2014 4:19 PM EDT documented in this encounter Results * SCANNED RHYTHM STRIPS (01/04/2014 12:48 AM EDT) Anatomical Region Laterality Modality Other us Unknown Unknown IMG ECG ORDERABLES Final Result * EK EKG 12 LEAD (01/02/2014 7:39 AM EDT) Anatomical Region Laterality Modality Other 01/02/2014 7:39 AM EDT us Alex Gonzalez MD IMG ECG ORDERABLES Final Resul t * (ABNORMAL) LIPID SCREEN (01/02/2014 6:13 AM EDT) Cholesterol 198 <=200 mg/dL [facility] Comment: < 200 ?Desirable 200 - 239 ? Borderline High >= 240 ?High Triglyceride 120 <=150 mg/dL [facility] Comment: < 150 ? Normal 150 - 199 ?Borderline High 200 - 499 ?High ??>= 500 ? Very High HDL 49 >=40 mg/dL [facility] Comment: ?? > 60 ?Optimal 40 - 60 ?Acceptable ?? < 40 ?Low LDL Calculated 125(H) <=100 mg/dL [facility] Comment: ??< 100 ?Optimal 100 - 129 ? Near or above optimal 130 - 159 ? Borderline High 160 - 189 ? High >= 190 ?Very High Blood specimen (specimen) UPPER LIMB STRUCTURE / Unknown 01/02/2014 6:13 AM EDT 01/02/2014 9:01 AM EDT us Chantell Hoang MD CHEMISTRY ORDERABLES Edited Resu lt - Final [facility] [address] [place] [address] * TROPONIN-T (01/02/2014 12:09 AM EDT) Troponin-T <0.01 <=0.02 ng/mL [facility] Comment: < 0.03 ?No detectable myocardial injury 0.03 - 0.10 ?? Possible myocardial injury ??> 0.10 ?Indicative of myocardial injury Blood specimen (specimen) 01/02/2014 12:09 AM EDT 01/02/2014 12:30 AM EDT us Alex Gonzalez MD CHEMISTRY ORDERABLES Final Res ult [facility] [address] [place] [address] * XR ANKLE LEFT AP LATERAL AND OBLIQUE (01/01/2014 7:28 PM EDT) Anatomical Region Laterality Modality Ankle Radiographic Faby ging 01/01/2014 6:44 PM EDT Impressions 01/01/2014 7:40 PM EDT IMPRESSION: Osteoarthritis of the tibiotalar joint. 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 relation to the tibia. There is no acute fracture. Narrative 01/01/2014 7:40 PM EDT XR ANKLE LEFT AP LATERAL AND OBLIQUE ??Jan 01, 2014 07:28:39 PM Clinical: -left ankle pain swelling, fall COMPARISONS: 03/12/13. FINDINGS: There is lateral subluxation of the talus in relation to the tibia. This is unchanged from the prior study. There are are remote fracture deformities of the lateral malleolus. There is tibiotalar joint space narrowing and osteophyte formation, similar to prior study. There are no acute fractures. Procedure Note Aster Gonzalez MD - 01/01/2014 XR ANKLE LEFT AP LATERAL AND OBLIQUE Jan 01, 2014 07:28:39 PM Clinical: -left ankle pain swelling, fall COMPARISONS: 03/12/13. FINDINGS: There is lateral subluxation of the talus in relation to the tibia. Thisis unchanged from the prior study. There are are remote fracture deformities of the lateralmalleolus. There is tibiotalar joint space narrowing and osteophyte formation, similar topcoffeyviller study. There are no acute fractures. IMPRESSION: Osteoarthritis of the tibiotalar joint. There is chronic lateralsubluxation of the talus in relation to the tibia. There is no acute fracture. us Chantell Hoang MD IMG DIAGNOSTIC IMAGING ORDERABLE S Final Result * TROPONIN-T (01/01/2014 7:00 PM EDT) Troponin-T <0.01 <=0.02 ng/mL Comment: < 0.03 ?No detectable myocardial injury 0.03 - 0.10 ?? Possible myocardial injury ??> 0.10 ?Indicative of myocardial injury Blood specimen (specimen) 01/01/2014 7:00 PM EDT 01/01/2014 7:10 PM EDT Alex Gonzalez MD CHEMISTRY ORDERABLES Final Res ult * XR CHEST PA AND LATERAL (01/01/2014 5:09 PM EDT) Anatomical Region Laterality Modality Chest Radiographic Faby ging 01/01/2014 4:37 PM EDT Impressions 01/01/2014 5:26 PM EDT IMPRESSION: No acute radiographic cardiopulmonary disease. Narrative 01/01/2014 5:26 PM EDT XR CHEST PA AND LATERAL ??Jan 01, 2014 05:09:29 PM Clinical: -CHEST PAIN COMPARISONS: 09/21/13. FINDINGS: The lungs are clear. The costophrenic sulci are sharp. The heart and mediastinal contours are normal. There are no acute osseous findings in the chest. Procedure Note Aster Gonzalez MD - 01/01/2014 XR CHEST PA AND LATERAL Jan 01, 2014 05:09:29 PM Clinical: -CHEST PAIN COMPARISONS: 09/21/13. FINDINGS: The lungs are clear. The costophrenic sulci are sharp. The heart andmediastinal contours are normal. There are no acute osseous findings in the chest. IMPRESSION: No acute radiographic cardiopulmonary disease. us Alex Gonzalez MD IMG DIAGNOSTIC IMAGING ORDERAB LES Final Result * (ABNORMAL) DIFFERENTIAL (01/01/2014 4:58 PM EDT) Neut Percent 70.8 % [facility] Lymph Percent 17.8 % [facility] Adams Percent 8.4 % [facility] Eos Percent 2.2 % [facility] Baso Percent 0.8 % [facility] Neut# 8.0(H) 1.8 - 7.7 x10(3)/[facility] Lymph# 2.0 0.6 - 4.8 x10(3)/[facility] Adams# 0.9 0.0 - 1.3 x10(3)/[facility] Eos# 0.2 0.0 - 0.5 x10(3)/[facility] Baso# 0.1 0.0 - 0.2 x10(3)/[facility] Blood specimen (specimen) 01/01/2014 4:58 PM EDT 01/01/2014 5:04 PM EDT Alex Gonzalez MD HEMATOLOGY ORDERABLES Final Re sult Performing Organization Address [facility] Co de Phone Number [facility] [address] [place] [address] * TROPONIN-T (01/01/2014 4:58 PM EDT) Troponin-T <0.01 <=0.02 ng/mL [facility] Comment: < 0.03 ?No detectable myocardial injury 0.03 - 0.10 ?? Possible myocardial injury ??> 0.10 ?Indicative of myocardial injury Blood specimen (specimen) 01/01/2014 4:58 PM EDT 01/01/2014 5:04 PM EDT Alex Gonzalez MD CHEMISTRY ORDERABLES Final Res ult Performing Organization Address [facility] Co de Phone Number [facility] [address] [place] [address] * NT PROBNP (01/01/2014 4:58 PM EDT) NT Pro-BNP 53 <=319 pg/mL [facility] Comment: An NT pro-BNP level less than 300 pg/mL in any patient, regardless of age, Effectively rules out acute CHF with a 99% negative predictive value. Blood specimen (specimen) 01/01/2014 4:58 PM EDT 01/01/2014 5:04 PM EDT us Alex Gonzalez MD CHEMISTRY ORDERABLES Final Res ult [facility] [address] [place] [address] * (ABNORMAL) BASIC METABOLIC PANEL (01/01/2014 4:58 PM EDT) Sodium 138 136 - 145 mmol/L [facility] Potassium 4.5 3.5 - 5.0 mmol/L [facility] Chloride 102 98 - 107 mmol/L [facility] Total CO2 31(H) 22 - 29 mmol/L [facility] Anion Gap 5(L) 7 - 16 mmol/L [facility] Calcium 9.4 8.6 - 10.2 mg/dL [facility] Glucose Lvl 121(H) 74 - 100 mg/dL [facility] BUN 13 6 - 20 mg/dL [facility] Creatinine 0.60 0.51 - 1.00 mg/dL [facility] GFR Afr Am >60 [facility] Comment: GFR is estimated using creatinine, [...] or less GFR Non Afr Am >60 [facility] Blood specimen (specimen) UPPER LIMB STRUCTURE / Unknown 01/01/2014 4:58 PM EDT 01/01/2014 5:04 PM EDT us Alex Gonzalez MD CHEMISTRY ORDERABLES Edited Re sult - Final Performing Organization Address [facility] de Phone Number [facility] [address] [place] [address] * (ABNORMAL) CBC WITH AUTO DIFF (01/01/2014 4:58 PM EDT) WBC 11.3(H) 4.0 - 11.0 x10(3)/mcL [facility] RBC 4.22 3.80 - 5.10 x10(6)/mcL [facility] Hgb 11.7(L) 12.0 - 15.6 gm/dL [facility] Hct 35.4(L) 35.7 - 45.9 % [facility] MCV 83.9 82.5 - 99.8 fL [facility] MCH 27.7 27.0 - 34.3 pg [facility] MCHC 33.0 32.1 - 35.3 gm/dL [facility] RDW 14.8 11.5 - 15.0 % [facility] Platelet 241 144 - 423 x10(3)/mcL [facility] MPV 8.0 6.8 - 10.8 fL [facility] Blood specimen (specimen) UPPER LIMB STRUCTURE / Unknown 01/01/2014 4:58 PM EDT 01/01/2014 5:04 PM EDT us Alex Gonzalez MD HEMATOLOGY ORDERABLES Final Re sult Performing Organization Address [facility] de Phone Number [facility] [address] [place] [address] * EK EKG 12 LEAD (01/01/2014 4:19 PM EDT) Anatomical Region Laterality Modality Other 01/01/2014 4:19 PM EDT Alex Gonzalez MD IMG ECG ORDERABLES Final Resul t documented in this encounter Visit Diagnoses Diagnosis Chest pain- Primary Chest pain, unspecified Chest pain Chest pain, unspecified Acute coronary syndrome (HCC) Intermediate coronary syndrome SOB (shortness of breath) Shortness of breath Epigastric pain Abdominal pain, epigastric Esophageal reflux Dysphagia Dysphagia, unspecified Acute coronary syndrome (HCC) Intermediate coronary syndrome SOB (shortness of breath) Shortness of breath documented in this encounter Admitting Diagnoses Diagnosis Chest pain Chest pain, unspecified documented in this encounter Administered Medications Inactive Administered Medications - up to 1 most recent administrations Medication Order MAR Action Action Date Dose Rate Site aspirin tablet 325 mg 325 mg, Oral, ONCE, 1 dose, On 01/01/14 at 1800 Given 01/01/2014 6:13 PM EDT 325 mg aspirin tablet 325 mg 325 mg, Oral, DAILY WITH MEAL, First dose on 01/02/14 at 0800, Until Discontinued Given 01/02/2014 8:01 AM EDT 325 mg enoxaparin (LOVENOX) injection 40 mg 40 mg, Subcutaneous, DAILY, First dose on 01/01/14 at 1845, Until Discontinued Given 01/02/2014 8:01 AM EDT 40 mg omeprazole (PriLOSEC) capsule 20 mg 20 mg, Oral, 2 TIMES DAILY BEFORE MEALS, First dose on 01/02/14 at 0600, Until Discontinued Given 01/02/2014 8:01 AM EDT 20 mg documented in this encounter Discontinued Medications Medication Sig Discontinue Reason Start Date End Da te omeprazole (PRILOSEC) 20 mgIndications:GERD (gastroesophageal reflux disease) Take 1 Cap by mouth daily. Stop Taking at Discharge 12/01/2013 01/02/2014 omeprazole (PRILOSEC) 20 mgIndications:Epigastri c pain,Esophageal reflux Take 1 Cap by mouth daily. Stop Taking at Discharge 05/24/2013 01/02/2014 documented as of this encounter Active and Recently Administered Medications Times are shown in EDT. Scheduled Medication Order 12/31/2013 01/01/2014 01/02/2014 aspirin tablet 325 mg (COMPLETED) 325 mg, Oral, ONCE, 1 dose, On 01/01/14 at 1800 1813 (Given - Provider: Kristina Linda RN) aspirin tablet 325 mg (CANCELED) 325 mg, Oral, DAILY WITH MEAL, First dose on 01/02/14 at 0800, Until Discontinued 08 (Given - Provid er: Shellie uRano RN) enoxaparin (LOVENOX) injection 40 mg (CANCELED) 40 mg, Subcutaneous, DAILY, First dose on 01/01/14 at 1845, Until Discontinued 1933 (Given - Provider: Bre David RN) 08 (Given - Provider: Shellie Ruano RN) omeprazole (PriLOSEC) capsule 20 mg 20 mg, Oral, 2 TIMES DAILY BEFORE MEALS, First dose on 01/02/14 at 0600, Until Discontinued 08 (Given - Provid er: Shellie Ruano RN) documented in this encounter Orders Medications Ordered That Edwin ht Not Have Been Administered Count Last Ordered Date First Ordered Date HYDROcodone-acetaminophen (N ORCO) 5-325 mg per tablet 1-2 Tab 1 01/01/2014 ondansetron (ZOFRAN) 4 mg/2 mL injection 4 mg 1 01/01/2014 ondansetron (ZOFRAN) tablet 4 mg 1 01/02/20 14 Nursing Count Last Ordered Date First Orde red Date ADMISSION 1 01/01/2014 ED ENTER ADMISSION ORDER 1 01/01/2014 VITAL SIGNS 1 01/01/2014 Consult Count Last Ordered Date First Orde red Date IP CONSULT TO HOSPITALIST 01/01/2014 Transfer Count Last Ordered Date First Orde red Date BED REQUEST 1 01/01/2014 Discharge Count Last Ordered Date First Orde red Date DISCHARGE PATIENT 1 01/02/2014 documented in this encounter Care Teams Casket Coverer Relationship Specialty Start Date End Date Patrice Lombardi DO [address] [place] [phone] PCP - General Family Medicine 08/10/12 04/24/14 Garett Holt MD NPI: [id number] [place] [phone] Internal Medicine-Gastroenterology 12/22/12 documented as of this encounter
--- OUTSIDE RECORDS SUMMARY | 2024-07-22 16:18 | XMS_ITS | Encounter Summary ---
Author Organization [place] [address] Care Team Providers Care Popcorn Attendant Name Role Phone Harjit Orellana DO, Viral Primary Care Provider [phone] Garett Holt MD Unavailable [phone] Reason for Visit * Reason Comments Medication Refill Encounter Details Date Type Department Care Team (Late st Contact Info) Description 04/08/2014 Refill [facility] [place] [address] [place] [address] Patrice Lombardi V, DO [address] [place] [address] Medication Refill Social History Tobacco Use [...] Start Date End Date simvastatin (ZOCOR) 10 mg TAKE 1 TABLET BY MOUTH EVERY EVENING 30 Tab 3 04/08/2014 4 documented in this encounter Plan of Treatment Upcoming Encounters Date Type Department Care Team (Late st Contact Info) Description 07/29/2024 9:00 AM EST Appointment [facility] [address] [place], [place] [id number] Jomar Kim MD [address] [place] [address] documented as of this encounter Visit Diagnoses Not on filedocumented in this encounter Discontinued Medications Medication Sig Discontinue Reason Start Date End Da te simvastatin (ZOCOR) 10 mgIndications:Hyperlipide mario Take 1 Tab by mouth every evening. Reorder 01/05/2014 04/08/2014 documented as of this encounter Care Teams Popcorn Attendant Relationship Specialty Start Date End Date Patrice Lombardi DO [address] [place] [address] PCP - General Family Medicine 08/10/12 04/24/14 Garett Holt MD [address] [place] [phone] Internal Medicine-Gastroenterology 12/22/12 documented as of this encounter
--- OUTSIDE RECORDS SUMMARY | 2024-07-22 16:18 | XMS_ITS | Encounter Summary ---
Author Organization [place] [address] Care Team Providers Care Hide Or Skin Buffer Name Role Phone Harjit Orellana DO, Viral Primary Care Provider [phone] Garett Holt MD Unavailable [phone] Reason for Visit * Reason Comments Edema 1 week return to ass ess swelling and for results of testing. Encounter Details Date Type Department Care Team (Late st Contact Info) Description 01/21/2014 11:30 AM EDT Office Visit [facility] [address] [phone] Ruiz Stokes MD [address] [place] [address] Esophageal reflux (Primary Dx); Dysphagia; Leg pain, right; Systolic murmur; Chest pain; Osteoarthrosis, unspecified whether generalized or localized, unspecified site; Chest discomfort; Encounter for screening colonoscopy; Acute coronary syndrome (HCC); SOB (shortness of breath) Social History Tobacco [...] Reading Time Taken Comments Blood Pressure 124/72 01/21/2014 12:01 PM EDT Left arm; large cuff. Pulse 80 01/21/2014 12:01 PM EDT Temperature - - Respiratory Rate - - Oxygen Saturation - - Inhaled Oxygen Concentration - - Weight 122 kg (269 lb) 01/21/2014 12:01 PM EDT Height 162.6 cm (5' 4 ) 01/21/2014 12:0 1 PM EDT Body Mass Index 46.17 01/21/2014 12:01 PM EDT documented in this encounter Progress Notes * Ruiz Stokes MD - 01/21/2014 12:27 PM EDT Cardiology Progress Note Patient Name: Alyssa Jamil : 1955 Subjective Chief Complaint Patient presents with ??? Edema 1 week return to assess swelling and for results of testing. HPI 58 yo recent hospitalization for CP No objective ischemia Enzymes neg Stress test neg for ischemia Former smoker No hx of CAD No hx of LHC Obese, sedentary, borderline DM BP well controlled New meds added in hospital: statin, lasix and KCL Labs 01/13 all WNL ROS Denies: fever, chills, nausea, vomiting, dizziness, headaches, diarrhea Past Medical History Diagnosis Date ??? Shortness of breath ??? Asthma ??? Other and unspecified angina pectoris ??? Heartburn nausea after eating ??? Ulcer ??? Arthritis all over ??? 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 Diabetes mellitus borderline ??? Anemia on iron Current Outpatient Rx Name Route Sig Dispense Refill ??? ERGOCALCIFEROL, VITAMIN D2, (VITAMIN D2 ORAL) Oral Take by mouth. ??? fUROsemide (LASIX) 40 mg tablet Oral Take 1 Tab by mouth daily. 30 Tab 6 ??? potassium chloride SA (K-DUR;KLOR-CON) 20 mEq tablet Oral Take 1 Tab by mouth daily. 30 Tab 6 ??? simvastatin (ZOCOR) 10 mg Oral Take 1 Tab by mouth every evening. 30 Tab 2 ??? omeprazole (PRILOSEC) 20 mg Oral Take 1 Cap by mouth 2 times daily (before meals). 60 Tab 0 ??? Aspirin (ASPIRIN) 81 mg Oral Take 1 Tab by mouth daily. 100 Tab 4 ??? iron polysaccharides (FERREX 150 FORTE PLUS) 150-60-25-1 ma-gl-bpf-mg Cap Oral Take 1 Cap by mouth [...] ??? Cancer Maternal Grandmother Objective Filed Vitals: 01/21/14 1201 BP: 124/72 Pulse: 80 Exam: GENERAL APPEARANCE: In no acute distress [...] No results found for this visit on 01/21/14. Labs Lab Results Component Value Date CHOLESTEROL 198 01/02/2014 CHOLESTEROL 202* 05/17/2013 CHOLESTEROL 201* 03/25/2013 HDL 49 01/02/2014 HDL 56 05/17/2013 HDL 58 03/25/2013 LDLCALC 125* 01/02/2014 TRIG 120 01/02/2014 TRIG 75 05/17/2013 TRIG 95 03/25/2013 No results found for this basename: INR, PROTIME Lab Results Component Value Date WBC 11.3* 01/01/2014 WBC 7.9 05/17/2013 WBC 7.9 03/12/2013 HGB 11.7* 01/01/2014 HGB 11.9 05/17/2013 HGB 11.6* 03/12/2013 HCT 35.4* 01/01/2014 HCT 36.8 05/17/2013 HCT 36.4 03/12/2013 MCV 83.9 01/01/2014 MCV 86.3 05/17/2013 MCV 86.7 03/12/2013 PLT 241 01/01/2014 PLT 284 01/06/2013 PLT 265 10/20/2012 Lab Results Component Value Date HGBA1C 6.0* 05/17/2013 HGBA1C 6.0 10/20/2012 Lab Results Component Value Date NA 141 01/13/2014 NA 138 01/01/2014 NA 141 05/17/2013 K 4.1 01/13/2014 K 4.5 01/01/2014 K 4.3 05/17/2013 BUN 13 01/13/2014 BUN 13 01/01/2014 BUN 13 05/17/2013 CALCIUM 9.8 01/13/2014 CALCIUM 9.4 01/01/2014 CALCIUM 9.4 05/17/2013 CL 100 01/13/2014 CL 102 01/01/2014 CL 103 05/17/2013 CO2 31* 01/13/2014 CO2 31* 01/01/2014 CO2 25 05/17/2013 CREATININE 0.73 01/13/2014 CREATININE 0.60 01/01/2014 CREATININE 0.68 05/17/2013 GLU 107* 01/13/2014 GLU 121* 01/01/2014 GLU 95 10/20/2012 Lab Results Component Value Date ALT 13 01/13/2014 ALT 15 03/25/2013 ALT 19 06/22/2012 AST 15 01/13/2014 AST 20 03/25/2013 AST 14 06/22/2012 ALKPHOS 85 01/13/2014 ALKPHOS 89 06/22/2012 BILITOT 0.2 06/22/2012 Assessment [...] whether generalized or localized, unspecified site Impression 58 yo recent hospitalization for CP No objective ischemia Enzymes neg Stress test neg for ischemia Former smoker No hx of CAD No hx of LHC Obese, sedentary, borderline DM BP well controlled New meds added in hospital: statin, lasix and KCL Labs 01/13 all WNL Plan No active Cardiac issues Work up unremarkable Cont Rx and RF modification Cont low dose lasix PRN for LE edema F/u 6 mo with labs ptv Thank you for allowing me to participate in the care of your patients. Please call with any concerns or questions Ruiz Stokes MD [facility] * Aleena Elliott MA - 01/21/2014 11:59 AM EDT Medications reviewed verbally with patient from [facility]. No refills required from us at this visit. documented in this encounter Miscellaneous Notes * Patient Instructions - Aleena Elliott MA - 01/21/2014 11:59 AM EDT You may be contacted by [...] 9:00 AM EST Appointment [facility] [address] [place] [address] Jomar Kim MD [address] [place] [address] Scheduled Orders Name Type Priority Associated Diagnoses Orde r Schedule ALANINE AMINOTRANSFERASE Lab Routine Esophageal reflux Dysphagia Leg pain, right Systolic murmur Chest pain Osteoarthrosis, unspecified whether generalized or localized, unspecified site Chest discomfort Encounter for screening colonoscopy Acute coronary syndrome (HCC) SOB (shortness of breath) 1 Occurrences starting 01/21/2014 until 07/22/2014 ASPARTATE AMINOTRANSFERASE Lab Routine Esophageal reflux Dysphagia Leg pain, right Systolic murmur Chest pain Osteoarthrosis, unspecified whether generalized or localized, unspecified site Chest discomfort Encounter for screening colonoscopy Acute coronary syndrome (HCC) SOB (shortness of breath) 1 Occurrences starting 01/21/2014 until 07/22/2014 LIPID SCREEN Lab Routine Esophageal reflux Dysphagia Leg pain, right Systolic murmur Chest pain Osteoarthrosis, unspecified whether generalized or localized, unspecified site Chest discomfort Encounter for screening colonoscopy Acute coronary syndrome (HCC) SOB (shortness of breath) 1 Occurrences starting 01/21/2014 until 07/22/2014 COMPREHENSIVE METABOLIC PANEL Lab Routine Esophageal reflux Dysphagia Leg pain, right Systolic murmur Chest pain Osteoarthrosis, unspecified whether generalized or localized, unspecified site Chest discomfort Encounter for screening colonoscopy Acute coronary syndrome (HCC) SOB (shortness of breath) 1 Occurrences starting 01/21/2014 until 07/22/2014 documented as of this encounter Visit Diagnoses Diagnosis Esophageal reflux- Primary Dysphagia Dysphagia, unspecified Leg pain, right Pain in limb Systolic murmur Undiagnosed cardiac murmurs Chest pain Chest pain, unspecified Osteoarthrosis, unspecified whether generalized or localized, unspecified site Chest discomfort Other chest pain Encounter for screening colonoscopy Special screening for malignant neoplasms, colon Acute coronary syndrome (HCC) Intermediate coronary syndrome SOB (shortness of breath) Shortness of breath documented in this encounter Care Teams Hide Or Skin Buffer Relationship Specialty Start Date End Date Patrice Lombardi DO [address] [place] [phone] PCP - General Family Medicine 08/10/12 04/24/14 Garett Holt MD [address] [place] [phone] Internal Medicine-Gastroenterology 12/22/12 documented as of this encounter
--- OUTSIDE RECORDS SUMMARY | 2024-07-22 16:18 | XMS_ITS | Encounter Summary ---
Author Organization [place] [address] Care Team Providers Care Quality Control Analyst Name Role Phone Harjit Orellana DO, Viral Primary Care Provider [phone] Garett Holt MD Unavailable [phone] Reason for Visit * Reason Comments Abdominal Pain pt amb to triage wit h c/o generalized abd pain that radiates to back with n/v for 3 days. also c/o headache and left leg swelling. cpta: none Encounter Details Date Type Department Care Team (Late st Contact Info) Description 04/02/2014 2:28 PM EDT - 04/02/2014 7:21 PM EDT Emergency [facility] [address] [place] [address] Danie Terrazas MD [address] [place] [id number] Ventral hernia (Primary Dx); Generalized abdominal pain; Left ankle pain; Skin infection; Lumbar back pain Discharge Disposition: Home or Self Care [...] Sign Reading Time Taken Comments Blood Pressure 114/95 04/02/2014 6:52 PM EDT Pulse 89 04/02/2014 6:52 PM EDT Temperature 36.1 ??C (97 ??F) 04/02/2014 2:21 PM EDT Respiratory Rate 16 04/02/2014 6:52 PM EDT Oxygen Saturation 94% 04/02/2014 6:52 PM EDT Inhaled Oxygen Concentration - - Weight 123.8 kg (273 lb) 04/02/2014 2:21 PM EDT Height 162.6 cm (5' 4 ) 04/02/2014 2:21 PM EDT Body Mass Index 46.86 04/02/2014 2:21 PM EDT documented in this encounter Discharge Instructions * Discharge Instructions* Wilbur Anderson PA-C - 04/02/2014 6:26 PM EDT Clear liquid diet for next 24 hours. B.R.A.T. diet for the following 24 hours. Medication as prescribed. Followup with Gen. Surgery. Follow up with Patrice Lombardi V, in 2-4 days if symptoms persist or sooner if worse. Return to emergency department for increased abdominal pain, fever, increased vomiting, blood in your vomit/stool/urine, or development of other concerning symptoms. documented in this encounter Ordered Prescriptions Prescription Sig Dispense Quantity Refills Last Filled Start Date End Date ondansetron (ZOFRAN ODT) 4 mg disintegrating tablet Take 1 Tab by mouth every 6 hours as needed for Nausea for up to 10 doses. 10 Tab 0 04/02/2014 7 sulfamethoxazole-tri methoprim (BACTRIM DS) 800-160 mg per tablet Take 1 Tab by mouth 2 times daily for 10 days. 20 Tab 0 04/02/2014 5 documented in this encounter Discharge Disposition Disposition Code Departure Means Destination Home or Self Half-Way documented in this encounter ED Notes * Sabrina Rendon RN - 04/02/2014 4:40 PM EDT Pt just finished drinking 500cc of water. Walked to bathroom to get urine specimen. Pt walks steadily with cane. * Wilbur Anderson PA-C - 04/02/2014 4:33 PM EDT Chief Complaint Patient presents with ??? Abdominal Pain pt amb to triage with c/o generalized abd pain that radiates to back with n/v for 3 days. also c/o headache and left leg swelling. cpta: none HPI Comments: This is a 58-year-old female who presents emergency department today with several complaints. Patient complains of abdominal pain that began 3 days ago. This is located throughout the entire abdomen, and she will not localize this further. She describes this as a swollen sensation that she rates at 9/10 in intensity. This is constant and worse with drinking soda and eating spicy foods. No alleviating factors or radiating pain. Complains of nausea without vomiting, or hematemesis. Her last bowel movement was yesterday. No diarrhea, hematochezia, or melena. No dysuria, hematuria, or urinary frequency. Patient has been having a bilateral lumbar back pain as a stabbing and rated at 9/10 in intensity. This is constant and worse with position change. No alleviating factors or radiating pain. No bowel or bladder incontinence. No saddle paresthesias. Patient does admit to having chronic low back pain and this is now much worse than baseline. There has been no new injury. Patient also complains of left ankle pain. She states that this has been present for greater than one year, but she was walking 2 days ago when she felt a snapping sensation in her ankle. Since then,she has had pain/swelling over her medial malleolus is sharp and rated 10/10 in intensity. This is constant and worse with weightbearing. No alleviating factors or radiating pain. No calf pain, swelling, or discoloration. Patient has been having a bilateral anterior chest wall pain with inspiration over the past 6 months. She has also been short of breath, but reports that this is also baseline. She has had some hemoptysis over the past 6 months as well. She reports that her shortness of breath is mostly at night when she wakes up gasping for air. Patient complains of a knot on her right forehead. This has been present for 2-3 days. This is slightly tender and rated at 3/10 in intensity. This is only present with palpation. No alleviating factors or radiating pain. No further headache or neck stiffness. No change in vision or hearing. No slurred speech or facial droop. No focal weakness or paresthesias. Pertinent medical history includes shortness of breath, asthma, angina pectoris, diabetes mellitus,Unspecified ulcer, and anemia. History of cholecystectomy, colonoscopy, and upper endoscopy. Denies frequent alcohol use. She is on 81 mg of aspirin daily. Denies illicit drug use. The history is provided by the patient. No sign language interpreter was used. Allergies Allergen Reactions ??? No Known Allergies Home Medications: Prior to Admission medications Medication Sig Start Date End Date Taking? Authorizing Provider ERGOCALCIFEROL, VITAMIN D2, (VITAMIN D2 ORAL) Take by mouth. Yes Provider, Historical fUROsemide (LASIX) 40 mg tablet Take 1 Tab by mouth daily. 01/10/14 Yes Rosemary Ruelas APRN potassium chloride SA (K-DUR;KLOR-CON) 20 mEq tablet Take 1 Tab by mouth daily. 01/10/14 Yes Rosemary Ruelas APRN simvastatin (ZOCOR) 10 mg Take 1 Tab by mouth every evening. 01/05/14 Yes Patrice Lombardi V, DO omeprazole (PRILOSEC) 20 mg Take 1 Cap by mouth 2 times daily (before meals). 01/02/14 Yes Chantell Hoang MD Aspirin (ASPIRIN) 81 mg Take 1 Tab by mouth daily. 01/02/14 Yes Chantell Hoang MD iron polysaccharides (FERREX 150 FORTE PLUS) 150-60-25-1 mo-xp-fvb-mg Cap Take 1 Cap by mouth daily. 12/01/13 Yes Patrice Lombardi V, DO naproxen sodium (ANAPROX) 220 mg tablet Take 1 Tab by mouth as needed. 12/01/13 Yes Harjit Viral V, DO naproxen sodium (ANAPROX) 220 mg tablet Take 1 Tab by mouth as needed. 02/04/14 Annalise Oneill MD Past Medical History: Past Medical History Diagnosis Date ??? Shortness of breath ??? Asthma ??? Other and unspecified angina pectoris ??? Heartburn nausea after eating ??? Ulcer ??? Arthritis all over ??? 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 Diabetes mellitus borderline ??? Anemia on iron Social History: reports that she has quit smoking. She has never used smokeless tobacco. She reports that she does not drink alcohol. Family History: Family History Problem Relation Age of Onset ??? Heart Disease Father ??? Cataracts Father ??? Diabetes Father ??? Cancer Maternal Grandmother Surgical History: Past Surgical History Procedure Laterality Date ??? Cholecystectomy ??? Colonoscopy ??? Upper gastrointestinal endoscopy ??? Upper gastrointestinal endoscopy 02/17/2013 Surgeon: Garett Holt MD; Location: [facility]; Service: ??? Colonoscopy 02/17/2013 Surgeon: Garett Holt MD; Location: [facility]; Service: Review of Systems Constitutional: Negative for fever, chills, diaphoresis, activity change and appetite change. HENT: Negative for ear pain, congestion, sore throat, rhinorrhea, trouble swallowing, neck pain, neck stiffness, postnasal drip and tinnitus. Eyes: Negative for photophobia and pain. Respiratory: Positive for shortness of breath. Negative for cough, chest tightness, wheezing and stridor. Cardiovascular: Negative for palpitations and leg swelling. Gastrointestinal: Positive for nausea and abdominal pain. Negative for vomiting, diarrhea, constipation, blood in stool, anal bleeding and rectal pain. Genitourinary: Negative for dysuria, urgency, frequency, hematuria, flank pain, vaginal bleeding, vaginal discharge, difficulty urinating and genital sores. Musculoskeletal: Positive for back pain and joint swelling. Negative for myalgias, arthralgias and gait problem. Skin: Negative for color change, pallor and rash. Neurological: Negative for dizziness, syncope, weakness, light-headedness, numbness and headaches. Hematological: Does not bruise/bleed easily. Psychiatric/Behavioral: Negative for confusion. Blood pressure 160/71, pulse 66, temperature 97 ??F (36.1 ??C), temperature source Oral, resp. rate18, height 5' 4 (1.626 m), weight 273 lb (123.832 kg), SpO2 96.00%. Physical Exam Nursing note and vitals reviewed. Constitutional: She is oriented to person, place, and time. She appears well- developed and well-nourished. No distress. HENT: Head: Normocephalic and atraumatic. Right Ear: External ear normal. Left Ear: External ear normal. Nose: Nose normal. Mouth/Throat: Oropharynx is clear and moist. No oropharyngeal exudate. There is a small area of erythema to the right forehead. This is slightly tender, but there is no drainable abscess. No evidence of periorbital or orbital cellulitis. Eyes: Conjunctivae and EOM are normal. Pupils are equal, round, and reactive to light. Right eye exhibits no discharge. Left eye exhibits no discharge. No scleral icterus. Neck: Normal range of motion. Neck supple. No JVD present. No meningismus Cardiovascular: Normal rate, regular rhythm, normal heart sounds and intact distal pulses. Exam reveals no gallop and no friction rub. No murmur heard. Pulmonary/Chest: Effort normal and breath sounds normal. No stridor. No respiratory distress. She has no wheezes. She has no rales. Abdominal: Soft. Bowel sounds are normal. She exhibits no distension and no mass. There is tenderness. There is no rebound and no guarding. Left lower quadrant tenderness. No pain over McBurney's point. Negative Rovsing sign. No rebound tenderness or guarding. No suprapubic tenderness. No ecchymosis, abrasions, or lacerations. No masses palpable. No pulsatile masses palpable. Musculoskeletal: Normal range of motion. She exhibits tenderness. She exhibits no edema. Midline lumbar and bilateral SI joint tenderness with no bony deformity. No T- spine or C-spine tenderness. No CVA tenderness. Left lower extremity: She presented tenderness over the anterior ankle and medial malleolus. There is no visible swelling. No calf tenderness or swelling. No palpable cords. Negative Homans sign. Shehas been ambulating around the emergency department with her cane without any difficulty whatsoever. Lymphadenopathy: She has no cervical adenopathy. Neurological: She is alert and oriented to person, place, and time. No cranial nerve deficit. She exhibits normal muscle tone. Coordination normal. Skin: Skin is warm and dry. No rash noted. She is not diaphoretic. No erythema. No pallor. Psychiatric: She has a normal mood and affect. Her behavior is normal. Judgment and thought contentnormal. Procedures Radiology/EKG/Labs: Results for orders placed during the hospital encounter of 04/02/14 XR ANKLE LEFT AP LATERAL AND OBLIQUE Narrative: Three views XR ANKLE LEFT AP LATERAL AND OBLIQUE Apr 02, 2014 03:25:11 PM HISTORY: Leg pain and swelling Compare: January 01, 2014 Degenerative change and evidence of old healed fracture again noted position of the tail S with respect to the tibia stable Impression: Impression: No acute fracture or osseous destruction. 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 There is no effusion or pneumothorax. There is atherosclerosis of the aorta. Otherwise the heart and mediastinum are normal. There is mild scarring in the periphery of the mid left lung. There is no failure mass or pneumonia. Impression: IMPRESSION: Mild scarring in the periphery of the left midlung. Hager CT ABD PEL ED FAST W CONTRAST Narrative: CT of the abdomen and pelvis with contrast including sagittal and coronal reformats March 21, [id number] Pain, nausea, vomiting, 75 mL Isovue-370, comparison [...] is no pelvic mass or fluid collection. Impression: IMPRESSION: Two small midline ventral hernias contain only fat. The fat in these hernias is a bit dense and could be inflamed. [facility] CBC WITH AUTO DIFF Result Value Range WBC 10.9 4.0 - 11.0 x10(3)/mcL RBC 4.26 3.80 - 5.10 x10(6)/mcL Hgb 12.0 12.0 - 15.6 gm/dL Hct 36.3 35.7 - 45.9 % MCV 85.3 82.5 - 99.8 fL MCH 28.1 27.0 - 34.3 pg MCHC 32.9 32.1 - 35.3 gm/dL RDW 14.9 11.5 - 15.0 % Platelet 243 144 - 423 x10(3)/mcL MPV 8.1 6.8 - 10.8 fL BASIC METABOLIC PANEL Result Value Range Sodium 137 136 - 145 mmol/L Potassium 4.2 3.5 - 5.0 mmol/L Chloride 102 98 - 107 mmol/L Total CO2 25 22 - 29 mmol/L Anion Gap 10 7 - 16 mmol/L Calcium 9.6 8.6 - 10.2 mg/dL Glucose Lvl 98 74 - 100 mg/dL BUN 19 6 - 20 mg/dL Creatinine 0.60 0.51 - 1.00 mg/dL GFR Afr Am >60 GFR Non Afr Am >60 HEPATIC FUNCTION PANEL Result Value Range Total Protein 7.9 6.4 - 8.3 gm/dL Albumin 4.2 3.5 - 5.2 gm/dL Bili Direct <0.2 0.0 - 0.3 mg/dL Bili Total 0.2 0.1 - 1.3 mg/dL AST 20 <=40 IU/L ALT 16 <=41 IU/L Alk Phos 78 35 - 104 IU/L LIPASE LEVEL Result Value Range Lipase Lvl 38 13 - 60 IU/L D-DIMER Result Value Range D-Dimer <230 <=230 ng/mL D-DU DIFFERENTIAL Result Value Range Neut Percent 70.8 Lymph Percent 16.7 Petroleum Percent 8.5 Eos Percent 2.9 Baso Percent 1.1 Neut# 7.7 1.8 - 7.7 x10(3)/mcL Lymph# 1.8 0.6 - 4.8 x10(3)/mcL Petroleum# 0.9 0.0 - 1.3 x10(3)/mcL Eos# 0.3 0.0 - 0.5 x10(3)/mcL Baso# 0.1 0.0 - 0.2 x10(3)/mcL ED Course: Appropriate laboratory and radiology studies reviewed. Patient was seen and examined by me. The patient was discussed with the attending physician, Dr. Terrazas. Diagnostic tests and exam findings were discussed and reviewed with the attending physician. Given the extensive amount of complaints, a rather extensive workup was ordered. Abdominal labs were ordered. CT of the abdomen and pelvis with oral and IV contrast using the ED fast protocol ordered. D-dimer was also ordered given the reports of hemoptysis over the past 6 months and intermittent pleuritic components. Fortunately, this was negative. This would definitively exclude a pulmonary embolism in addition to her normal vital signs. Patient initially received Levsin. She reports minimal improvement. She will be given Protonix, morphine,and Zofran. Left ankle x-ray is unremarkable. No acute fracture or dislocation. Her laboratory studies are completely unremarkable. CT shows 2 small midline ventral hernias containing only fat. Thereis no evidence of incarceration or strangulation. There is evidence of some inflammation, which would explain her abdominal discomfort. Chest x-ray shows some scarring in the periphery of the left mid lung, but no further acute findings. The patient will be placed on Bactrim given the very small developing skin infection versus cellulitis to the right forehead. There is no palpable or drainable abscess. Her lower back pain is likely mechanical secondary to body habitus. She remains neurologically stable without evidence of cauda equina syndrome. She remains neurologically intact. Repeat abdominal exam is benign. Patient is instructed to followup with General surgery and primary care. The patient remained stable in the department. Vital signs remained stable. All questions were answered and the patient agrees with the treatment plan. Criteria for returning to the Emergency Department wasdiscussed and the patient verbalized an understanding. The patient is being discharged in stable condition. ED Clinical Impression: Ventral hernia (primary encounter diagnosis) Generalized abdominal pain Left ankle pain Skin infection Lumbar back pain Critical Care time Condition at Discharge/Transfer from Department: Stable This chart was completed using voice recognition technology and may contain unintended errors Wilbur Anderson PA-C 04/02/14 [id number] Cosigned by Danie Terrazas MD at 04/04/2014 1:39 PM EDT documented in this encounter Plan of Treatment Upcoming Encounters Date Type Department Care Team (Late st Contact Info) Description 07/29/2024 9:00 AM EST Appointment [facility] [address] [place] [address]. [place] [address] Jomar Kim MD [address] [place] [address] documented as of this encounter Procedures Procedure Name Priority Date/Time Associated Diagnosis Comments URINALYSIS POC Routine 04/02/2014 6:[address] ABD PEL ED FAST W CONTRAST STAT 04/02/2014 4:59 PM EDT XR CHEST PA AND LATERAL JORGE LUIS 04/02/2014 3:25 PM EDT XR ANKLE LEFT AP LATERAL AND OBLIQUE JORGE LUIS 04/02/2014 3:17 PM EDT D-DIMER STAT 04/02/2014 3:06 PM EDT DIFFERENTIAL STAT 04/02/2014 3:06 PM EDT CBC WITH DIFF STAT 04/02/2014 3:06 PM EDT LIPASE LEVEL STAT 04/02/2014 3:06 PM EDT HEPATIC FUNCTION PANEL STAT 04/02/2014 3:06 PM EDT BASIC METABOLIC PANEL STAT 04/02/2014 3:06 PM EDT SALINE LOCK IV STAT 04/02/2014 2:48 PM EDT documented in this encounter Results * (ABNORMAL) URINALYSIS POC (04/02/2014 6:26 PM EDT) UA Color POC Yellow [facility] UA Appear POC Clear Clear [facility] UA Gluc POC Negative Negative [facility] UA Ketones POC Negative Negative [facility] UA Blood POC Trace-intact (A) Negative [facility] UA pH POC 6.0 5.0 - 8.0 [facility] UA Protein POC Negative Negative [facility]A Urobilinogen POC 0.2 mg/dl <=1 mg/dl [facility]A Nitrite POC Negative Negative [facility] Leuk Est POC Negative Negative [facility] UA SG POC 1.015 1.001 - 1.035 [facility] Urine specimen (specimen) 04/02/2014 6:26 PM EDT 04/02/2014 6:26 PM EDT us Danie Terrazas MD POINT OF CARE TEST ORDERABLES Fi nal Result [facility] [address] [place] [address] * CT ABD PEL ED FAST W CONTRAST (04/02/2014 4:59 PM EDT) Anatomical Region Laterality Modality Abdomen, Pelvis Computed Tomogra phy 04/02/2014 3:06 PM EDT Impressions 04/02/2014 5:50 PM EDT IMPRESSION: Two small midline ventral hernias contain only fat. The fat in these hernias is a bit dense and could be inflamed. [facility] Narrative 04/02/2014 5:[address] of the abdomen and pelvis with contrast including sagittal and coronal reformats March 21 Pain, nausea, vomiting, 75 mL Isovue-370, comparison [...] is no pelvic mass or fluid collection. Procedure Note Sunil Hager MD - 04/02/2014 CT of the abdomen and pelvis with contrast including sagittal and coronalreformats March 21 Pain, nausea, vomiting, 75 mL Isovue-370, comparison 2008 Special images of the lung bases are normal. There is a granuloma on theleft. 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 CT of the abdomen Special images of the liver and spleen show no significant focal lesion.The adrenals, pancreas, and kidneys are normal. There is no para-aortic adenopathy. Theabdominal bowel including the appendix is normal. There are 2 midline ventral hernias atabout the level of the umbilicus. These contain only fat. CT of the pelvis There is no pelvic sidewall lymphadenopathy. The pelvic bowel is normal.There is no pelvic mass or fluid collection. IMPRESSION: Two small midline ventral hernias contain only fat. The fat in thesehernias is a bit dense and could be inflamed. [facility] Danie Terrazas MD [facility] [place] ORDERABLES Final Result * XR CHEST PA AND LATERAL (04/02/2014 3:25 PM EDT) Anatomical Region Laterality Modality Chest Radiographic Faby ging 04/02/2014 3:05 PM EDT Impressions 04/02/2014 3:48 PM EDT IMPRESSION: Mild scarring in the periphery of the left midlung. 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 There is no effusion or pneumothorax. There is atherosclerosis of the aorta. Otherwise the heart and mediastinum are normal. There is mild scarring in the periphery of the mid left lung. There is no failure mass or pneumonia. 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 There is no effusion orpneumothorax. There is atherosclerosis of the aorta. Otherwise the heart and mediastinum arenormal. There is mild scarring in the periphery of the mid left lung. There is no failure massor pneumonia. IMPRESSION: Mild scarring in the periphery of the left midlung. [facility] Danie [facility] ORDERABLE S Final Result * XR ANKLE LEFT AP LATERAL AND OBLIQUE (04/02/2014 3:17 PM EDT) Anatomical Region Laterality Modality Ankle Radiographic Faby ging 04/02/2014 2:48 PM EDT Impressions 04/02/2014 4:14 PM EDT Impression: No acute fracture or osseous destruction. Narrative 04/02/2014 4:14 PM EDT Three views XR ANKLE LEFT AP LATERAL AND OBLIQUE ??Apr 02, 2014 03:25:11 PM HISTORY: ??Leg pain and swelling ?? Compare: January 01, 2014 Degenerative change and evidence of old healed fracture again noted position of the tail S with respect to the tibia stable Procedure Note Stone Egan MD - 04/02/2014 Three views XR ANKLE LEFT AP LATERAL AND OBLIQUE Apr 02, 2014 03:25:11PM HISTORY: Leg pain and swelling Compare: January 01, 2014 Degenerative change and evidence of old healed fracture again notedposition of the tail S with respect to the tibia stable Impression: No acute fracture or osseous destruction. Danie Terrazas MD [facility]AG[facility] ORDERABLE S Final Result * D-DIMER (04/02/2014 3:06 PM EDT) D-Dimer <230 <=230 ng/mL D-DU Comment: This test has been clinically validated by the plumbing manager and approved by the FDA for exclusion of pulmonary embolism (PE) or deep vein thrombosis (DVT) in patients with a low clinical risk assessment. ?? The cutoff for exclusion of PE and DVT is < 230 ng/mL D-Dimer Units. Increased levels of D-dimer are associated with PE, DVT, disseminated intravascular coagulation, malignancies, inflammation, sepsis, surgery, trauma, , and advanced patient age. [SHIVA 2006 11:295(2): 199-207] Blood specimen (specimen) UPPER LIMB STRUCTURE / Unknown 04/02/2014 3:06 PM EDT 04/02/2014 3:40 PM EDT Danie Terrazas MD HEMATOLOGY ORDERABLES Final Resu lt * DIFFERENTIAL (04/02/2014 3:06 PM EDT) Neut Percent 70.8 % [facility] Lymph Percent 16.7 % [facility] Petroleum Percent 8.5 % [facility] Eos Percent 2.9 % [facility] Baso Percent 1.1 % [facility] Neut# 7.7 1.8 - 7.7 x10(3)/[facility] Lymph# 1.8 0.6 - 4.8 x10(3)/[facility] Petroleum# 0.9 0.0 - 1.3 x10(3)/[facility] Eos# 0.3 0.0 - 0.5 x10(3)/[facility] Baso# 0.1 0.0 - 0.2 x10(3)/[facility] Blood specimen (specimen) 04/02/2014 3:06 PM EDT 04/02/2014 3:46 PM EDT Danie Terrazas MD HEMATOLOGY ORDERABLES Final Resu lt [facility] [address] [place] [address] * LIPASE LEVEL (04/02/2014 3:06 PM EDT) Lipase Lvl 38 13 - 60 IU/L Blood specimen (specimen) UPPER LIMB STRUCTURE / Unknown 04/02/2014 3:06 PM EDT 04/02/2014 3:49 PM EDT Danie Terrazas MD CHEMISTRY ORDERABLES Final Resul t * HEPATIC FUNCTION PANEL (04/02/2014 3:06 PM EDT) Total Protein 7.9 6.4 - 8.3 gm/dL Albumin 4.2 3.5 - 5.2 gm/dL Bili Direct <0.2 0.0 - 0.3 mg/dL Bili Total 0.2 0.1 - 1.3 mg/dL AST 20 <=40 IU/L ALT 16 <=41 IU/L Alk Phos 78 35 - 104 IU/L Blood specimen (specimen) UPPER LIMB STRUCTURE / Unknown 04/02/2014 3:06 PM EDT 04/02/2014 3:49 PM EDT Danie Terrazas MD CHEMISTRY ORDERABLES Final Resul t * BASIC METABOLIC PANEL (04/02/2014 3:06 PM EDT) Sodium 137 136 - 145 mmol/L Potassium 4.2 3.5 - 5.0 mmol/L Chloride 102 98 - 107 mmol/L Total CO2 25 22 - 29 mmol/L Anion Gap 10 7 - 16 mmol/L Calcium 9.6 8.6 - 10.2 mg/dL Glucose Lvl 98 74 - 100 mg/dL BUN 19 6 - 20 mg/dL Creatinine 0.60 0.51 - 1.00 mg/dL GFR Afr Am >60 Comment: GFR is estimated using creatinine, age, [...] or less GFR Non Afr Am >60 Blood specimen (specimen) UPPER LIMB STRUCTURE / Unknown 04/02/2014 3:06 PM EDT 04/02/2014 3:49 PM EDT Danie Terrazas MD CHEMISTRY ORDERABLES Edited Resu lt - Final * CBC WITH AUTO DIFF (04/02/2014 3:06 PM EDT) WBC 10.9 4.0 - 11.0 x10(3)/mcL RBC 4.26 3.80 - 5.10 x10(6)/mcL Hgb 12.0 12.0 - 15.6 gm/dL Hct 36.3 35.7 - 45.9 % MCV 85.3 82.5 - 99.8 fL MCH 28.1 27.0 - 34.3 pg MCHC 32.9 32.1 - 35.3 gm/dL RDW 14.9 11.5 - 15.0 % Platelet 243 144 - 423 x10(3)/mcL MPV 8.1 6.8 - 10.8 fL Blood specimen (specimen) UPPER LIMB STRUCTURE / Unknown 04/02/2014 3:06 PM EDT 04/02/2014 3:46 PM EDT Danie Terrazas MD HEMATOLOGY ORDERABLES Final Resu lt documented in this encounter Visit Diagnoses Diagnosis Ventral hernia- Primary Ventral hernia, unspecified, without mention of obstruction or gangrene Generalized abdominal pain Abdominal pain, generalized Left ankle pain Pain in joint, ankle and foot Skin infection Unspecified local infection of skin and subcutaneous tissue Lumbar back pain Lumbago documented in this encounter Administered Medications Inactive Administered Medications - up to 1 most recent administrations Medication Order MAR Action Action Date Dose Rate Site hyoscyamine (LEVSIN) injection 0.25 mg 0.25 mg, Intravenous, ONCE, 1 dose, On 04/02/14 at 1500 Given 04/02/2014 3:00 PM EDT 0.25 mg iopamidol (ISOVUE-370) 76 % injection 75 mL 75 mL, Intravenous, ONCE PRN, 1 dose, Starting on 04/02/14 at 1650, Until 04/02/14 at 1700, Radiology Procedure, VESICANT , Radiology Given 04/02/2014 5:00 PM EDT 75 mL morphine injection 4 mg 4 mg, Intravenous, ONCE, 1 dose, On 04/02/14 at 1645 Given 04/02/2014 5:52 PM EDT 4 mg ondansetron (ZOFRAN) 4 mg/2 mL injection 4 mg 4 mg, Intravenous, ONCE, 1 dose, On 04/02/14 at 1645 Given 04/02/2014 5:51 PM EDT 4 mg pantoprazole (PROTONIX) injection 40 mg 40 mg, Intravenous, ONCE, 1 dose, On 04/02/14 at 1645, Dilute with 10 mL of 0.9% NaCl. Administer over 2 minutes. Given 04/02/2014 5:50 PM EDT 40 mg documented in this encounter Active and Recently Administered Medications Times are shown in EDT. Scheduled Medication Order 03/31/2014 04/01/2014 04/02/2014 hyoscyamine (LEVSIN) injection 0.25 mg (COMPLETED) 0.25 mg, Intravenous, ONCE, 1 dose, On 04/02/14 at 1500 1500 (Given - Provid er: Sabrina Rendon RN) morphine injection 4 mg (COMPLETED) 4 mg, Intravenous, ONCE, 1 dose, On 04/02/14 at 1645 1752 (Given - Provid er: Sabrina Rendon RN) ondansetron (ZOFRAN) 4 mg/2 mL injection 4 mg (COMPLETED) 4 mg, Intravenous, ONCE, 1 dose, On 04/02/14 at 1645 1751 (Given - Provid er: Sabrina Rendon RN) pantoprazole (PROTONIX) injection 40 mg (COMPLETED) 40 mg, Intravenous, ONCE, 1 dose, On 04/02/14 at 1645, Dilute with 10 mL of 0.9% NaCl. Administer over 2 minutes. 1750 (Given - Provid er: Sabrina Rendon RN) PRN Medication Order 03/31/2014 04/01/2014 04/02/2014 iopamidol (ISOVUE-370) 76 % injection 75 mL (COMPLETED) 75 mL, Intravenous, ONCE PRN, 1 dose, Starting on 04/02/14 at 1650, Until 04/02/14 at 1700, Radiology Procedure, VESICANT , Radiology 1700 (Given - Provid er: Aleksandra Maritza Jamin, RT) documented in this encounter Orders Nursing Count Last Ordered Date First Orde red Date STEPHANIE WRAP 1 04/02/2014 PERFORM DIPSTICK URINALYSIS 1 04/02/2014 IV Count Last Ordered Date First Orde red Date SALINE LOCK IV 1 04/02/2014 documented in this encounter Care Teams Quality Control Analyst Relationship Specialty Start Date End Date Patrice Lombardi DO [address] [place] [address] PCP - General Family Medicine 08/10/12 04/24/14 Garett Holt MD [address] [place] [address] Internal Medicine-Gastroenterology 12/22/12 documented as of this encounter
--- OUTSIDE RECORDS SUMMARY | 2024-07-22 16:18 | XMS_ITS | Encounter Summary ---
Author Organization [place] [address] Care Team Providers Care Prototyper Name Role Phone Harjit Orellana DO, Viral Primary Care Provider [phone] Garett Holt MD Unavailable [phone] Reason for Visit * Reason Onset Date Comments Medication Refill 11/29/2013 Encounter Details Date Type Department Care Team (Late st Contact Info) Description 11/29/2013 Refill [facility] [address] [place] [address] Patrice Lombardi V, DO [address] [place] [address] Medication Refill Social History Tobacco [...] Start Date End Date omeprazole (PRILOSEC) 20 mgIndications:GERD (gastroesophageal reflux disease) Take 1 Cap by mouth daily. 90 Cap 2 12/01/2013 4 naproxen sodium (ANAPROX) 220 mg tabletIndications:Ost eoarthrosis, unspecified whether generalized or localized, unspecified site Take 1 Tab by mouth as needed. 90 Tab 1 12/01/2013 5 iron polysaccharides (FERREX 150 FORTE PLUS) 150-60-25-1 ec-vc-kke-mg CapIndications:Anemia Take 1 Cap by mouth daily. 90 Cap 1 12/01/2013 4 documented in this encounter Miscellaneous Notes * Telephone Encounter - Colette Guzman MA - 12/01/2013 8:10 AM EDT From: Alyssa Jamil To: Patrice Lombardi DO Sent: 11/29/2013 10:24 AM EDT Subject: Medication Renewal Request Original authorizing provider: DO Alyssa Charles would like a refill of the following medications: iron polysaccharides (FERREX 150 FORTE PLUS) 150-60-25-1 zu-fe-mkp-mg Cap [Patrice Lombardi DO] naproxen sodium (ANAPROX) 220 mg tablet [Patrice Lombardi DO] omeprazole (PRILOSEC) 20 mg [Patrice Lombardi DO] Preferred pharmacy: [place] [address] [address] [facility] - [phone] Comment: need refill on Meloxican 15mg tabs take 1 tablet by mouth once daily documented in this encounter Plan of Treatment Upcoming Encounters Date Type Department Care Team (Late st Contact Info) Description 07/29/2024 9:00 AM EST Appointment [facility] [address] [place] [address] Jomar Kim MD [address] [place] [address] documented as of this encounter Visit Diagnoses Diagnosis Anemia Anemia, unspecified Osteoarthrosis, unspecified whether generalized or localized, unspecified site GERD (gastroesophageal reflux disease) Esophageal reflux documented in this encounter Discontinued Medications Medication Sig Discontinue Reason Start Date End Da te iron polysaccharides (FERREX 150 FORTE PLUS) 150-60-25-1 cy-ci-rbl-mg CapIndications:Anemia Take 1 Cap by mouth daily. Reorder 05/24/2013 12/01/2013 naproxen sodium (ANAPROX) 220 mg tabletIndications:Osteoarth rosis, unspecified whether generalized or localized, unspecified site Take 1 Tab by mouth as needed. Reorder 05/24/2013 12/01/2013 omeprazole (PRILOSEC) 20 mgIndications:GERD (gastroesophageal reflux disease) Take 1 Cap by mouth daily. Reorder 09/16/2013 12/01/2013 documented as of this encounter Care Teams Prototyper Relationship Specialty Start Date End Date Patrice Lombardi DO [address] [place] [address] PCP - General Family Medicine 08/10/12 04/24/14 Garett Holt MD [address] [place] [address] Internal Medicine-Gastroenterology 12/22/12 documented as of this encounter
--- OUTSIDE RECORDS SUMMARY | 2024-07-22 16:18 | XMS_ITS | Encounter Summary ---
Author Organization [place] [address] Care Team Providers Care Sand And Gravel Plant Operator Name Role Phone Harjit Orellana DO, Viral Primary Care Provider [phone] Garett Holt MD Unavailable [phone] Reason for Visit * Reason Comments Rash comes and goes- need s refill on permetherin Back Pain needs to discuss dawson n med Arthritis wants steroid shot Encounter Details Date Type Department Care Team (Late st Contact Info) Description 09/16/2013 1:50 PM EST Office Visit [facility] [address] [place] [address] Patrice Lombardi DO [address] [place] [address] Scabies (Primary Dx); OA (osteoarthritis); Osteoarthrosis, unspecified whether generalized or localized, unspecified site; SOB (shortness of breath); GERD (gastroesophageal reflux disease) Social History Tobacco Use Types Packs/Day Years [...] Sign Reading Time Taken Comments Blood Pressure 134/88 09/16/2013 2:14 PM EST Pulse 92 09/16/2013 2:14 PM EST Temperature 36.1 ??C (96.9 ??F) 09/16/2013 2:14 PM ES T Respiratory Rate 28 09/16/2013 2:14 PM EST Oxygen Saturation - - Inhaled Oxygen Concentration - - Weight 120.7 kg (266 lb) 09/16/2013 2:14 PM EST Height - - Body Mass Index 45.66 05/24/2013 10:57 AM EDT documented in this encounter Ordered Prescriptions Prescription Sig Dispense Quantity Refills Last Filled Start Date End Date traMADol (ULTRAM) 50 mg tabletIndications :OA (osteoarthritis), Osteoarthrosis, unspecified whether generalized or localized, unspecified site Take 1 Tab by mouth 2 times daily for 10 days. 20 Tab 0 09/16/2013 4 omeprazole (PRILOSEC) 20 mgIndications:RSOY D (gastroesophageal reflux disease) Take 1 Cap by mouth daily. 30 Cap 2 09/16/2013 4 permethrin (ELIMITE) 5 % creamIndications: Scabies Apply topically See Admin Instructions for 7 days. Apply repeat in 1 week if needed. 60 g 1 09/16/2013 4 documented in this encounter Progress Notes * Patrice Lombardi V, DO - 09/16/2013 2:11 PM EST Subjective: Patient ID: Alyssa Jamil is a 58 y.o. female. Chief Complaint Patient presents with ??? Rash comes and goes- needs refill on permetherin ??? Back Pain needs to discuss pain med ??? Arthritis wants steroid shot HPI Patients past medical, family and social histories were reviewed and updated. There were no changesexcept as noted. Coughing And congestsion... Sob. At times. No fevers No nvd No chest pain.. gerd like syptoms. Review of Systems Constitutional: Negative. HENT: Positive for ear pain and postnasal drip (bad taste in mouth). Gastrointestinal: Negative. Musculoskeletal: Positive for myalgias, back pain and arthralgias. Skin: Positive for rash. Neurological: Negative. Psychiatric/Behavioral: Negative. Objective: Filed Vitals: 09/16/13 1414 BP: 134/88 Pulse: 92 Temp: 96.9 ??F (36.1 ??C) TempSrc: Temporal Resp: 28 Weight: 266 lb (120.657 kg) Body mass index is 45.64 kg/(m^2). Physical Exam Constitutional: She is oriented to person, place, and time. She appears well- developed and well-nourished. HENT: Head: Normocephalic. Right Ear: External ear normal. Left Ear: External ear normal. Mouth/Throat: Oropharynx is clear and moist. Eyes: Conjunctivae and EOM are normal. Pupils are equal, round, and reactive to light. Neck: Normal range of motion. Cardiovascular: Normal rate, regular rhythm and normal heart sounds. Pulmonary/Chest: Effort normal and breath sounds normal. Abdominal: Soft. Musculoskeletal: Normal range of motion. Neurological: She is alert and oriented to person, place, and time. Skin: Skin is warm. Psychiatric: She has a normal mood and affect. Her behavior is normal. Thought content normal. Assessment and Plan: Alyssa was seen today for rash, back pain and arthritis. Diagnoses and associated orders for this visit: Scabies - permethrin (ELIMITE) 5 % cream; Apply topically See Admin Instructions for 7 days. Apply repeat in 1 week if needed. OA (osteoarthritis) - methylPREDNISolone acetate (DEPO-MEDROL) injection 80 mg; Inject 1 mL into the muscle once. - traMADol (ULTRAM) 50 mg tablet; Take 1 Tab by mouth 2 times daily for 10 days. Osteoarthrosis, unspecified whether generalized or localized, unspecified site - traMADol (ULTRAM) 50 mg tablet; Take 1 Tab by mouth 2 times daily for 10 days. SOB (shortness of breath) - X-ray chest PA and lateral; Future GERD (gastroesophageal reflux disease) - omeprazole (PRILOSEC) 20 mg; Take 1 Cap by mouth daily. No Follow-up on file. documented in this encounter Miscellaneous Notes * Addendum Note - Patrice Lombardi DO - 09/16/2013 2:51 PM ESTAddended by: PATRICE LOMBARDI V on: 09/16/2013 02:51 PM Modules accepted: Orders documented in this encounter Plan of Treatment Upcoming Encounters Date Type Department Care Team (Late st Contact Info) Description 07/29/2024 9:00 AM EST Appointment [facility] [address] [place], [place] [id number] Jomar Kim MD [address] [place] [address] documented as of this encounter Results * XR CHEST PA AND LATERAL (09/21/2013 1:55 PM EST) Anatomical Region Laterality Modality Chest Radiographic Faby ging 09/21/2013 1:33 PM EST Impressions 09/21/2013 2:42 PM EST IMPRESSION: No acute disease. Narrative 09/21/2013 2:42 PM EST XR CHEST PA AND LATERAL ??Sep 21, 2013 01:55:23 PM HISTORY: ??786.05-Shortness of [id number]-CM. COMPARISON: 01/16/2011. Focal linear scar in the left midlung. Lungs clear. Heart mediastinal structures within normal limits. Procedure Note Jimy Pineda MD - 09/21/2013 XR CHEST PA AND LATERAL Sep 21, 2013 01:55:23 PM HISTORY: 786.05-Shortness of [id number]-[id number]-3-CM. COMPARISON: 01/16/2011. Focal linear scar in the left midlung. Lungs clear. Heart mediastinalstructures within normal limits. IMPRESSION: No acute disease. us Viral Harjit Orellana DO IMG DIAGNOSTIC IMAGING ORDERAB LES Final Result documented in this encounter Visit Diagnoses Diagnosis Scabies- Primary OA (osteoarthritis) Osteoarthrosis, unspecified whether generalized or localized, unspecified site Osteoarthrosis, unspecified whether generalized or localized, unspecified site SOB (shortness of breath) Shortness of breath GERD (gastroesophageal reflux disease) Esophageal reflux SOB (shortness of breath) Shortness of breath documented in this encounter Administered Medications Inactive Administered Medications - up to 1 most recent administrations Medication Order MAR Action Action Date Dose Rate Site methylPREDNISolone acetate (DEPO-MEDROL) injection 80 mg 80 mg, Intramuscular, ONCE, 1 dose, On Cyn 09/16/13 at 1445, Dx: 1. OA (osteoarthritis)Indicat ions:OA (osteoarthritis) Given 09/16/2013 2:45 PM EST 80 mg Left Upper Outer Quadrant documented in this encounter Care Teams Sand And Gravel Plant Operator Relationship Specialty Start Date End Date Patrice Lombardi DO [address] [place] [address] PCP - General Family Medicine 08/10/12 04/24/14 Garett Holt MD [address] [place] [address] Internal Medicine-Gastroenterology 12/22/12 documented as of this encounter
--- OUTSIDE RECORDS SUMMARY | 2024-07-22 16:18 | XMS_ITS | Encounter Summary ---
Author Organization [place] [address] Care Team Providers Care Bin Operator Name Role Phone Harjit Orellana DO, Viral Primary Care Provider [phone] Garett Holt MD Unavailable [phone] Reason for Referral * Stress (Routine) - Closed Specialty Diagnoses / Procedures Referred By Ron bansal Referred To Contact Cardiac Diagnostic Imaging Diagnoses Chest pain Acute coronary syndrome (HCC) Systolic murmur Esophageal reflux Osteoarthrosis, unspecified whether generalized or localized, unspecified site Dysphagia Encounter for screening colonoscopy Leg pain, right SOB (shortness of breath) Chest discomfort HAMIDA (obstructive sleep apnea) Procedures ST STRESS TEST Rosemary Crespo APRN Phone: tel: fax: [facility] STRESS [address] [place] [address] Phone: tel: fax: Referral ID Status Reason Start Date Expiration Date Visits Re quested Visits Authorized [id number] Closed 01/12/2014 02/11/2014 1 1 Reason for Visit * Stress (Routine) - Closed Specialty Diagnoses / Procedures Referred By Ron bansal Referred To Contact Cardiac Diagnostic Imaging Diagnoses Chest pain Acute coronary syndrome (HCC) Systolic murmur Esophageal reflux Osteoarthrosis, unspecified whether generalized or localized, unspecified site Dysphagia Encounter for screening colonoscopy Leg pain, right SOB (shortness of breath) Chest discomfort HAMIDA (obstructive sleep apnea) Procedures ST STRESS TEST Rosemary Crespo, HOME CARE MANAGER Phone: tel: fax: [facility] STRESS [address] [place] [address] Phone: tel: fax: Referral ID Status Reason Start Date Expiration Date Visits Re quested Visits Authorized [id number] Closed 01/12/2014 02/11/2014 1 1 Encounter Details Date Type Department Care Team (Latest Contact Info) Description 01/12/2014 1:12 PM EDT - 01/12/2014 11:59 PM EDT Hospital Encounter [facility] [address] [facility] [address] [place] [address] Rosemary Ruelas, RYAN [address] [place] [address] Chest pain; Acute coronary syndrome (HCC); Systolic [...] 9:00 AM EST Appointment [facility] [address] [place] [address] Jomar Kim MD [address] [place] [address] documented as of this encounter Procedures Procedure Name Priority Date/Time Associated Diagnosis Comments SCANNED RADIOLOGY REPORT 01/14/2014 10:[address] STRESS TEST LEXISCAN Routine 01/12/2014 3:22 PM EDT Chest pain Acute coronary syndrome (HCC) Systolic murmur Esophageal reflux Osteoarthrosis, unspecified whether generalized or localized, unspecified site Dysphagia Encounter for screening colonoscopy Leg pain, right SOB (shortness of breath) Chest discomfort HAMIDA (obstructive sleep apnea) documented in this encounter Results * SCANNED RADIOLOGY REPORT (01/14/2014 10:44 AM EDT) Anatomical Region Laterality Modality Other us Unknown Unknown IMG DIAGNOSTIC IMAGING ORDERABLE S Final Result * ST STRESS TEST LEXISCAN (01/12/2014 3:22 PM EDT) Anatomical Region Laterality Modality Cardiac Stress T esting 01/12/2014 1:36 PM EDT us Rosemary Ruelas APRN IMG STRESS ORDERABLES Final [...] MAR Action Action Date Dose Rate Site regadenoson (LEXISCAN) injection 0.4 mg 0.4 mg, Intravenous, ONCE, 1 dose, On Fri01/12/14 at 1530, Echo Meds Given 01/12/2014 1:44 PM EDT 0.4 mg Right Arm documented in this encounter Discontinued Medications Medication Sig Discontinue Reason Start Date End Da te CALCIUM CARBONATE/VITAMIN D3 (VITAMIN D-3 ORAL) Take by mouth. DELETE- Entered in Error 03/2014 documented as of this encounter Historical Medications * This list may reflect changes made after this encounter. ERGOCALCIFEROL, VITAMIN D2, (VITAMIN D2 ORAL) Take by mouth. 05/31/2014 CALCIUM CARBONATE/VITAMIN D3 (VITAMIN D-3 ORAL) Take by mouth. 01/12/2014 added in this encounter Care Teams Bin Operator Relationship Specialty Start Date End Date Patrice Lombardi DO [address] [place] [address] PCP - General Family Medicine 08/10/12 04/24/14 Garett Holt MD [address] [place] [address] Internal Medicine-Gastroenterology 12/22/12 documented as of this encounter
--- OUTSIDE RECORDS SUMMARY | 2024-07-22 16:18 | XMS_ITS | Encounter Summary ---
Author Organization [place] [address] Care Team Providers Care Nursery Hand Name Role Phone Harjit Orellana DO, Viral Primary Care Provider [phone] Garett Holt MD Unavailable [phone] Reason for Visit * Nuclear Medicine (Routine) [...] SPECT LEXISCAN STRESS AND REST Rosemary Ruelas, SUBSTATION MANAGER [address] [place] [address] Phone: tel: fax: [address] [place] [address] Phone: tel: fax: Referral ID Status Reason Start Date Expiration Date Visits Re quested Visits Authorized [id number] Closed 01/12/2014 02/11/2014 5 5 Encounter Details Date Type Department Care Team (Latest Contact Info) Description 01/13/2014 9:02 AM EDT - 01/13/2014 11:09 AM EDT Hospital Encounter [facility] [address] [place] [address] Rosemary Ruelas APRN [address] [place] [address] Discharge Disposition: Home or Self Care Social [...] 9:00 AM EST Appointment [facility] [address] [place] [address] Jomar Kim MD [address] [place] [address] documented as of this encounter Procedures Procedure [...] (obstructive sleep apnea) documented in this encounter Visit Diagnoses Not on filedocumented in this encounter Administered Medications Inactive Administered Medications - up to 1 most recent administrations Medication Order MAR Action Action Date Dose Rate Site Tc-99m tetrofosmin (MYOVIEW) injection 27.2 magdalena Curie 27.2 millicurie, Intravenous, ONCE PRN, 1 dose, Starting on Cyn 01/13/14 at 0930, Until Cyn 01/13/14 at 0930, Radiology Procedure, Administration dose must be within 10% of the ordered dose for radiopharmaceutical medications., Radiology Given 01/13/2014 9:30 AM EDT 27.2 millicuries documented in this encounter Care Teams Nursery Hand Relationship Specialty Start Date End Date Patrice Lombardi DO [address] [place] [address] PCP - General Family Medicine 08/10/12 04/24/14 Garett Holt MD [address] [place] [address] Internal Medicine-Gastroenterology 12/22/12 documented as of this encounter
--- OUTSIDE RECORDS SUMMARY | 2024-07-22 16:18 | XMS_ITS | Encounter Summary ---
Author Organization [place] [address] Care Team Providers Care Lumber Racker Name Role Phone Garett Holt MD Unavailable Kate Bai DO Primary Care Provider Unavailable Encounter Details Date Type Department Care Team (Latest Contact Info) Description 05/31/2014 11:33 AM EDT - 05/31/2014 11:59 PM EDT Hospital Encounter [facility] INT [facility] [address] [place] [address] Annual physical exam (Primary Dx); DM type 2 (diabetes mellitus, type 2) (HCC); Obesity; Weight gain; Intolerance to heat, initial encounter; Vitamin D deficiency Discharge Disposition: Home or [...] 9:00 AM EST Appointment [facility] [address] [place] [address] Jomar Kim MD [address] [place] [address] Scheduled Orders Name Type Priority Associated Diagnoses Orde r Schedule OP VENIPUNCTURE CHARGE Lab Timed Annual physical exam DM type 2 (diabetes mellitus, type 2) (HCC) Obesity Weight gain Intolerance to heat, initial encounter Vitamin D deficiency One Time for 1 Occurrences starting 05/31/2014 until 05/31/2014 documented as of this encounter Procedures Procedure Name Priority Date/Time Associated Diagnosis Comments MICROALBUMIN/CREATIN INE RATIO URINE Routine 05/31/2014 11:42 AM EDT DM type 2 (diabetes mellitus, type 2) (HCC) TSH REFLEX Routine 05/31/2014 11:32 AM EDT Obesity Weight gain Intolerance to heat, initial encounter VITAMIN D 25 HYDROXY Routine 05/31/2014 11:32 AM EDT Vitamin D deficiency HEMOGLOBIN A1C Routine 05/31/2014 11:32 AM EDT DM type 2 (diabetes mellitus, type 2) (HCC) HEPATIC FUNCTION PANEL Routine 05/31/2014 11:32 AM EDT Annual physical exam BASIC METABOLIC PANEL Routine 05/31/2014 11:32 AM EDT Annual physical exam documented in this encounter Results * MICROALBUMIN/CREATININE RATIO URINE (05/31/2014 11:42 AM EDT) Urine Microalb 13.4 mg/L [facility] Urine Creatinine 86.8 mg/dL [facility] Ur Microalb/Creat 15 0 - 20 mg/gm [facility] Urine specimen (specimen) URINE SPECIMEN COLLECTION, CLEAN CATCH / Unknown 05/31/2014 11:42 AM EDT 05/31/2014 2:49 PM EDT Kate Bai DO URINE ORDERABLES Final Result Performing Organization Address [facility] de Phone Number [facility] [address] [place] [address] * (ABNORMAL) VITAMIN D 25 HYDROXY (05/31/2014 11:32 AM EDT) Pathologist [facility] VIT D 25 OH 23.7(L) 30.0 - 120.0 ng/mL [facility] Comment: INTERPRETIVE INFORMATION: ??Vitamin D, 25-Hydroxy [...] ORDERABLES Fi nal Result Performing Organization Address [facility] de Phone Number [facility] [address] [place] [address] * TSH REFLEX (05/31/2014 11:32 AM EDT) Pathologist [facility] TSH Reflex 2.130 0.270 - 4.200 mcIU/mL [facility] Blood specimen (specimen) UPPER LIMB STRUCTURE / Unknown 05/31/2014 11:32 AM EDT 05/31/2014 2:48 PM EDT Kate Bai DO CHEMISTRY ORDERABLES Fi nal Result Performing Organization Address [facility] Co de Phone Number [facility] [address] [place] [address] * HEPATIC FUNCTION PANEL (05/31/2014 11:32 AM EDT) [facility] Total Protein 7.7 6.4 - 8.3 gm/dL [facility] Albumin 4.0 3.5 - 5.2 gm/dL [facility] Bili Direct <0.2 0.0 - 0.3 mg/dL [facility] Bili Total 0.2 0.1 - 1.3 mg/dL [facility] AST 16 <=40 IU/L [facility] ALT 21 <=41 IU/L [facility] Alk Phos 79 35 - 104 IU/L [facility] Blood specimen (specimen) UPPER LIMB STRUCTURE / Unknown 05/31/2014 11:32 AM EDT 05/31/2014 2:48 PM EDT Kate Bai DO CHEMISTRY ORDERABLES Ed ited Result - Final Performing Organization Address [facility] de Phone Number [facility] [address] [place] [address] * HEMOGLOBIN A1C (05/31/2014 11:32 AM EDT) Hgb A1c 6.2 <=7.0 % [facility] Comment: Initial Diagnostic Criteria < 5.7 % ?Normal 5.7 - 6.4 % ? At risk for diabetes mellitus >= 6.5 % ?Consistent with diabetes mellitus Diabetes monitoring Target Value (ADA recommended): ?< 7 % Blood specimen (specimen) UPPER LIMB STRUCTURE / Unknown 05/31/2014 11:32 AM EDT 05/31/2014 2:47 PM EDT Ktae Bai DO CHEMISTRY ORDERABLES Fi nal Result Performing Organization Address [facility] de Phone Number [facility] [address] [place] [address] * (ABNORMAL) BASIC METABOLIC PANEL (05/31/2014 11:32 AM EDT) Sodium 142 136 - 145 mmol/L [facility] Potassium 4.3 3.5 - 5.0 mmol/L [facility] Chloride 103 98 - 107 mmol/L [facility] Total CO2 30(H) 22 - 29 mmol/L [facility] Anion Gap 9 7 - 16 mmol/L [facility] Calcium 10.2 8.6 - 10.2 mg/dL [facility] Glucose Lvl 96 74 - 100 mg/dL [facility] BUN 14 6 - 20 mg/dL [facility] Creatinine 0.66 0.51 - 1.00 mg/dL [facility] GFR Afr Am >60 [facility] Comment: GFR is estimated [...] or less GFR Non Afr Am >60 [facility] Blood specimen (specimen) UPPER LIMB STRUCTURE / Unknown 05/31/2014 11:32 AM EDT 05/31/2014 2:48 PM EDT us Kate Bai DO CHEMISTRY ORDERABLES Ed ited Result - Final Performing Organization Address City/State/[facility] Co de Phone Number [facility] [address] [place] [id number] documented in this encounter Visit Diagnoses Diagnosis Annual physical exam- Primary Routine general medical examination at a health care facility DM type 2 (diabetes mellitus, type 2) (HCC) Type II or unspecified type diabetes mellitus without mention of complication, not stated as uncontrolled Obesity Obesity, unspecified Weight gain Abnormal weight gain Intolerance to heat, initial encounter Vitamin D deficiency Unspecified vitamin D deficiency documented in this encounter Care Teams Lumber Racker Relationship Specialty Start Date End Date Kate Bai DO PCP - General Internal Medicine 05/31/14 10/02/14 Garett Holt MD Internal Medicine-Gastroenterology 12/22/12 documented as of this encounter
--- OUTSIDE RECORDS SUMMARY | 2024-07-22 16:18 | XMS_ITS | Encounter Summary ---
Author Organization [place] [address] Care Team Providers Care Strategic Planning Director Name Role Phone Harjit Orellana DO, Viral Primary Care Provider [phone] Garett Holt MD Unavailable [phone] Reason for Visit * Reason Comments Abdominal Pain nausea, crampaing pa in after urination, mid abd pains, x 3 days Dysuria pain after urination . x yesterday Encounter Details Date Type Department Care Team (Late st Contact Info) Description 02/04/2014 11:00 AM EDT Office Visit [facility] [address] [place] [address] Annalise Oneill MD [address] [place] [address] Dysuria (Primary Dx); Itching in the vaginal area; Left ankle pain; Osteoarthrosis, unspecified whether generalized or localized, unspecified site Social History Tobacco Use Types Packs/Day Years [...] Sign Reading Time Taken Comments Blood Pressure 138/82 02/04/2014 11:41 AM EDT Pulse 72 02/04/2014 11:41 AM EDT Temperature 36.4 ??C (97.6 ??F) 02/04/2014 11:41 AM E DT Respiratory Rate 16 02/04/2014 11:41 AM EDT Oxygen Saturation - - Inhaled Oxygen Concentration - - Weight 119.3 kg (263 lb) 02/04/2014 11:41 AM EDT Height 162.6 cm (5' 4 ) 02/04/2014 11:41 AM EDT Body Mass Index 45.14 02/04/2014 11:41 AM EDT documented in this encounter Ordered Prescriptions Prescription Sig Dispense Quantity Refills Last Filled Start Date End Date naproxen sodium (ANAPROX) 220 mg tabletIndications:O steoarthrosis, unspecified whether generalized or localized, unspecified site,Left ankle pain Take 1 Tab by mouth as needed. 90 Tab 1 02/04/2014 05/31/2014 fluconazole (DIFLUCAN) 150 mgIndications:Itchi ng in the vaginal area,Dysuria Take 1 Tab by mouth once for 1 dose. 1 Tab 0 02/04/2014 02/04/2014 documented in this encounter Progress Notes * Annalise Oneill MD - 02/04/2014 11:42 AM EDT Subjective: Patient ID: Alyssa Jamil is a 58 y.o. female. Chief Complaint Patient presents with ??? Abdominal Pain nausea, crampaing pain after urination, mid abd pains, x 3 days ??? Dysuria pain after urination. x yesterday HPI Patient presents as above. No fever or chills. She has been having some vaginal itching and discharge. She has pain after urination. No change in bowel movements She also complains of fatigue, increase pain in the right knee and left ankle. [place] a pop in the left ankle last week and has been having sorenes and swelling since Patients past medical, family and social histories were reviewed and updated. There were no changesexcept as noted. Review of Systems Constitutional: Negative for fever and chills. Respiratory: Negative for cough and shortness of breath. Gastrointestinal: Positive for nausea and abdominal pain. Genitourinary: Positive for dysuria. Negative for urgency, frequency, hematuria, flank pain, enuresis and difficulty urinating. Hematological: Negative for adenopathy. Objective: Filed Vitals: 02/04/14 1141 BP: 138/82 Pulse: 72 Temp: 97.6 ??F (36.4 ??C) TempSrc: Temporal Resp: 16 Height: 5' 4 (1.626 m) Weight: 263 lb (119.296 kg) Body mass index is 45.12 kg/(m^2). Physical Exam Vitals reviewed. Constitutional: She [...] no mass. There is no tenderness. Musculoskeletal: Left ankle: She exhibits normal range of motion, no swelling and no ecchymosis. No tenderness. Achilles tendon normal. Neurological: She is alert and oriented to person, place, and time. She has normal reflexes. Skin: Skin is warm and dry. Psychiatric: She has a normal mood and affect. Judgment normal. Lab Results Component Value Date WBC 11.3* 01/01/2014 HGB 11.7* 01/01/2014 HCT 35.4* 01/01/2014 PLT 241 01/01/2014 CHOLESTEROL 198 01/02/2014 TRIG 120 01/02/2014 HDL 49 01/02/2014 LDLCALC 125* 01/02/2014 ALT 13 01/13/2014 AST 15 01/13/2014 NA 141 01/13/2014 K 4.1 01/13/2014 CL 100 01/13/2014 CREATININE 0.73 01/13/2014 BUN 13 01/13/2014 CO2 31* 01/13/2014 GLUCOSE 98 05/17/2013 GLU 107* 01/13/2014 HGBA1C 6.0* 05/17/2013 MICROALBUR negative 05/13/2013 TSHREFLEX 1.99 05/17/2013 Assessment and Plan: Alyssa was seen today for abdominal pain and dysuria. Diagnoses and associated orders for this visit: Dysuria - POCT urinalysis dipstick automated - fluconazole (DIFLUCAN) 150 mg; Take 1 Tab by mouth once for 1 dose. - Urine Culture - Clinic Collect; Future Itching in the vaginal area - fluconazole (DIFLUCAN) 150 mg; Take 1 Tab by mouth once for 1 dose. Left ankle pain Comments: recommend rest, ice and juan jose wrap Above problems were discussed with patient and [...] encounter Miscellaneous Notes * Addendum Note - Caitlin Sauer MA - 02/11/2014 4:19 PM EDTAddended by: BRISEYDA MENSAH on: 02/11/2014 04:19 PM Modules accepted: Orders * Patient Instructions - Annalise Oneill MD - 02/04/2014 12:11 PM EDT Images from the original note were not included. Ankle Pain Ankle pain is a common symptom. The bones, cartilage, tendons, and muscles of the ankle joint perform a lot of work each day. The ankle joint holds your body weight and allows you to move around. Ankle pain can occur on either side or back of 1 or both ankles. Ankle pain may be sharp and burning ordull and aching. There may be tenderness, stiffness, redness, or warmth around the ankle. The pain occurs more often when a person walks or puts pressure on the ankle. CAUSES There are many reasons ankle pain can develop. It is important to work with your caregiver to identify the cause since many conditions can impact the bones, cartilage, muscles, and tendons. Causes for ankle pain include: ?? Injury, including a break (fracture), sprain, or strain often due to a fall, sports, or a high-impact activity. ?? Swelling (inflammation) of a tendon (tendonitis). ?? Achilles tendon rupture. ?? Ankle instability after repeated sprains and strains. ?? Poor foot alignment. ?? Pressure on a nerve (tarsal tunnel syndrome). ?? Arthritis in the ankle or the lining of the ankle. ?? Crystal formation in the ankle (gout or pseudogout). DIAGNOSIS A diagnosis is based on your medical history, your symptoms, results of your physical exam, and results of diagnostic tests. Diagnostic tests may include X- ray exams or a computerized magnetic scan (magnetic resonance imaging, MRI). TREATMENT Treatment will depend on the cause of your ankle pain and may include: ?? Keeping pressure off the ankle and limiting activities. ?? Using crutches or other walking support (a cane or brace). ?? Using rest, ice, compression, and elevation. ?? Participating in physical therapy or home exercises. ?? Wearing shoe inserts or special shoes. ?? Losing weight. ?? Taking medications to reduce pain or swelling or receiving an injection. ?? Undergoing surgery. HOME CARE INSTRUCTIONS ?? Only take [id number] or prescription medicines for pain, discomfort, or fever as directed by your caregiver. ?? Put ice on the injured area. ?? Put ice in a plastic bag. ?? Place a towel between your skin and the bag. ?? Leave the ice on for 15 to 20 minutes at a time, 3 to 4 times a day. ?? Keep your leg raised (elevated) when possible to lessen swelling. ?? Avoid activities that cause ankle pain. ?? Follow specific exercises as directed by your caregiver. ?? Record how often you have ankle pain, the location of the pain, and what it feels like. This information may be helpful to you and your caregiver. ?? Ask your caregiver about returning to work or sports and whether you should drive. ?? Follow up with your caregiver for further examination, therapy, or testing as directed. SEEK MEDICAL CARE IF: ?? Pain or swelling continues or worsens beyond 1 week. ?? You have an oral temperature above 102?? F (38.9?? C). ?? You are feeling unwell or have chills. ?? You are having an increasingly difficult time with walking. ?? You have loss of sensation or other new symptoms. ?? You have questions or concerns. MAKE SURE YOU: ?? Understand these instructions. ?? Will watch your condition. ?? Will get help right away if you are not doing well or get worse. Document Released: 02/12/2011 Document Revised: 11/16/2012 Document Reviewed: 02/12/2011 ExitCare?? Patient Information ??2013 [employer]. documented in this encounter Plan of Treatment Upcoming Encounters Date Type Department Care Team (Late st Contact Info) Description 07/29/2024 9:00 AM EST Appointment [facility] [address] [place] [id number] Jomar Kim MD [address] [place] [address] documented as of this encounter Procedures Procedure Name Priority Date/Time Associated Diagnosis Comments POCT URINALYSIS AUTOMATED Routine 02/04/2014 11:51 AM EDT Dysuria documented in this encounter Results * POCT URINALYSIS AUTOMATED (02/04/2014 11:51 AM EDT) Color, UA Clear, Yellow, [place], Rust SEP OFFICE Clarity, UA Clear, Cloudy [facility] Glucose, UA - g/dl% SEP [facility] Bilirubin, UA - Pos/Neg SEP [facility] Ketones, UA - Pos/Neg SEP bakery technician Grav, UA 1.005 1.001 - 1.035 g/dl SEP [facility]ICE Blood, UA - Pos/Neg SEP [facility]ICE pH, UA 6.5 5.0 - 8 SE[facility]ICE Protein, UA - Pos/Neg SEP [facility]ICE Urobilinogen, UA - 0.2 - 1.0 mg/dL SE[facility] Leukocytes, UA - Pos/Neg SEP [facility]ICE Nitrite, UA - Pos/Neg SEP [facility] Appear BF Clear, Slightly Cloudy Clear, Cloudy SEP OFFICE Lot Number SEP OFFICE Expiration Date SEP OFFICE SeriAl # SEP OFFICE Urine specimen (specimen) 02/04/2014 11:51 AM EDT us Annalise Oneill MD POINT OF CARE TEST ORDERABLES Final Result SEP OFFICE documented in this encounter Visit Diagnoses Diagnosis Dysuria- Primary Itching in the vaginal area Pruritus of genital organs Left ankle pain Pain in joint, ankle and foot Osteoarthrosis, unspecified whether generalized or localized, unspecified site documented in this encounter Care Teams Strategic Planning Director Relationship Specialty Start Date End Date Patrice Lombardi DO [address] [place] [address] PCP - General Family Medicine 08/10/12 04/24/14 Garett Holt MD [address] [place] [address] Internal Medicine-Gastroenterology 12/22/12 documented as of this encounter
--- OUTSIDE RECORDS SUMMARY | 2024-07-22 16:18 | XMS_ITS | Encounter Summary ---
Author Organization [place] [address] Care Team Providers Care Jersey Knitter Name Role Phone Harjit Orellana DO, Viral Primary Care Provider [phone] Garett Holt MD Unavailable [phone] Reason for Referral * Consultation (Routine) - Closed Specialty Diagnoses / Procedures Referred By Contac t Referred To Contact Diagnoses ETD (Eustachian tube dysfunction), left Deviated septum Epistaxis Annalise Oneill MD [address] [place] [address] Phone: tel: fax: Stef Patel MD [id number] [address] Phone: tel: fax: Referral ID Status Reason Start Date Expiration Date Visits Re quested Visits Authorized [id number] Closed 04/11/2014 10/08/2014 12 12 * Consultation (Routine) - Closed Specialty Diagnoses / Procedures Referred By Contac t Referred To Contact Diagnoses Ventral hernia Annalise Oneill MD [address] [place] [address] Phone: tel: fax: Christa Chavez MD Phone: tel: fax: Referral ID Status Reason Start Date Expiration Date Visits Re quested Visits Authorized [id number] Closed 04/11/2014 04/11/2015 1 1 Reason for Visit * Reason Comments Hospital Follow Up Hernia, Abd pain Referral to general surgery / / order in epic. Otalgia Left ear pain, heari ng loss, tinnitus, x 2 wks Encounter Details Date Type Department Care Team (Late st Contact Info) Description 04/11/2014 10:50 AM EDT Office Visit [facility] [address] [place] [address] Annalise Oneill MD [address] [place] [phone] Ventral hernia (Primary Dx); ETD (eustachian tube dysfunction), left; Deviated septum; Epistaxis Social History Tobacco Use Types Packs/Day Years [...] Sign Reading Time Taken Comments Blood Pressure 134/76 04/11/2014 11:15 AM EDT Pulse 72 04/11/2014 11:15 AM EDT Temperature 36.3 ??C (97.4 ??F) 04/11/2014 11:15 AM E DT Respiratory Rate 18 04/11/2014 11:15 AM EDT Oxygen Saturation - - Inhaled Oxygen Concentration - - Weight 124.3 kg (274 lb) 04/11/2014 11:15 AM EDT Height 160 cm (5' 3 ) 04/11/2014 11:15 AM EDT Body Mass Index 48.54 04/11/2014 11:15 AM EDT documented in this encounter Ordered Prescriptions Prescription Sig Dispense Quantity Refills Last Filled Start Date End Date sodium chloride (SODIUM CHLORIDE) 0.65 % nasal sprayIndications:Ep istaxis 1 [place] by Nasal route 3 times daily for 7 days. 100 mL 0 04/11/2014 04/18/2014 sodium chloride (SODIUM CHLORIDE) 0.65 % nasal sprayIndications:Ep istaxis 1 [place] by Nasal route 3 times daily for 7 days. 100 mL 0 04/11/2014 04/11/2014 documented in this encounter Progress Notes * Annalise Oneill MD - 04/11/2014 11:17 AM EDT Subjective: Patient ID: Alyssa Jamil is a 58 y.o. female. Chief Complaint Patient presents with ??? Hospital Follow Up Hernia, Abd pain ??? Referral to general surgery // order in epic. ??? Otalgia Left ear pain, hearing loss, tinnitus, x 2 wks HPI Patient presents as above. Abd pain- She feels that the pain in the anterior abdomen has worsened since she was evaluated in the ER. Shehas been having nausea. She has regular bowel movements. She denies any fevers. The pain is interfering with sleep. Pain is better when she drinks lots of water. She denies any pain with a bland dietbut the pain is wrrsened with over eating. CT abd/pelvis performed showing two ventral hernias containing fat tissue without incarceration appt with dr chavez scheduled for 04/25/14 She has been having sneezing and spitting up blood. She does report some nose bleeds Patients past medical, family and social histories were reviewed and updated. There were no changesexcept as noted. Review of Systems Constitutional: Negative for fever and chills. HENT: Positive for hearing loss, ear pain, nosebleeds and tinnitus. Negative for sore throat and sinus pressure. Respiratory: Negative for chest tightness and shortness of breath. Cardiovascular: Negative for chest pain and leg swelling. Gastrointestinal: Positive for abdominal pain (hernia ). Negative for nausea, vomiting and constipation. Neurological: Negative for headaches. Hematological: Negative for adenopathy. Objective: Filed Vitals: 04/11/14 1115 BP: 134/76 Pulse: 72 Temp: 97.4 ??F (36.3 ??C) TempSrc: Temporal Resp: 18 Height: 5' 3 (1.6 m) Weight: 274 lb (124.286 kg) Body mass index is 48.55 kg/(m^2). Physical Exam Vitals reviewed. Constitutional: She is oriented to person, place, and time. She appears well- developed and well-nourished. HENT: Right Ear: Tympanic membrane and external ear normal. Left Ear: External ear normal. Nose: Septal deviation (to left) present. Epistaxis (right anterior nares) is observed. Eyes: Conjunctivae are normal. Pupils are equal, round, and reactive to light. Neck: Normal range of motion. Neck supple. No thyromegaly present. Cardiovascular: Normal rate, regular rhythm, normal heart sounds and intact distal pulses. No carotid bruits. Pulmonary/Chest: Effort normal and breath sounds normal. Abdominal: Soft. Bowel sounds are normal. She exhibits no mass. There is no tenderness. Neurological: She is alert and oriented to person, place, and time. She has normal reflexes. Skin: Skin is warm and dry. Psychiatric: She has a normal mood and affect. Judgment normal. Assessment and Plan: Alyssa was seen today for hospital follow up, referral and otalgia. Diagnoses and associated orders for this visit: Ventral hernia Comments: no evidence of incarceration. follow up with surgery as recommended by ER - General Surgery ETD (eustachian tube dysfunction), left Comments: suspect secondary to severely deviated septum and blockage due to epistaxis - ENT Deviated septum - ENT Epistaxis - sodium chloride (SODIUM CHLORIDE) 0.65 % nasal spray; 1 [place] by Nasal route 3 times daily for 7 days. - ENT Above problems were discussed with patient and all are stable except otherwise noted. Continue medications as prior. Refills done as required. Blood work will be done if appropriate. Will adjust medications by phone as needed based on lab results and as noted. Follow up for any changes and as directed. Patient needs to transfer to an office closer to her sister's home in [place]. Return if symptoms worsen or fail to improve. documented in this encounter Miscellaneous Notes * Addendum Note - Andreas Greenfield MA - 04/11/2014 11:49 AM EDTAddended by: ANDREAS GREENFIELD on: 04/11/2014 11:49 AM Modules accepted: Orders * Patient Instructions - Marco Antonio Herman MA - 04/11/2014 11:14 AM EDT Images from the original note were not included. Inguinal Hernia, Adult Muscles help keep everything in the body in its proper place. But if a weak spot in the muscles develops, something can poke through. That is called a hernia. When this happens in the lower part of the belly (abdomen), it is called an inguinal hernia. (It takes its name from a part of the body in this region called the inguinal canal.) A weak spot in the wall of muscles lets some fat or part of the small intestine bulge through. An inguinal hernia can develop at any age. Men get them more oftenthan women. CAUSES In adults, an inguinal hernia develops over time. ?? It can be triggered by: ?? Suddenly straining the muscles of the lower abdomen. ?? Lifting heavy objects. ?? Straining to have a bowel movement. Difficult bowel movements (constipation) can lead to this. ?? Constant coughing. This may be caused by smoking or lung disease. ?? Being overweight. ?? Being . ?? Working at a job that requires long periods of standing or heavy lifting. ?? Having had an inguinal hernia before. One type can be an emergency situation. It is called a strangulated inguinal hernia. It develops ifpart of the small intestine slips through the weak spot and cannot get back into the abdomen. The blood supply can be cut off. If that happens, part of the intestine may . This situation requires emergency surgery. SYMPTOMS Often, a small inguinal hernia has no symptoms. It is found when a healthcare provider does a physical exam. Larger hernias usually have symptoms. ?? In adults, symptoms may include: ?? A lump in the groin. This is easier to see when the person is standing. It might disappear when lying down. ?? In men, a lump in the scrotum. ?? Pain or burning in the groin. This occurs especially when lifting, straining or coughing. ?? A dull ache or feeling of pressure in the groin. ?? Signs of a strangulated hernia can include: ?? A bulge in the groin that becomes very painful and tender to the touch. ?? A bulge that turns red or purple. ?? Fever, nausea and vomiting. ?? Inability to have a bowel movement or to pass gas. DIAGNOSIS To decide if you have an inguinal hernia, a healthcare provider will probably do a physical examination. ?? This will include asking questions about any symptoms you have noticed. ?? The healthcare provider might feel the groin area and ask you to cough. If an inguinal hernia isfelt, the healthcare provider may try to slide it back into the abdomen. ?? Usually no other tests are needed. TREATMENT Treatments can vary. The size of the hernia makes a difference. Options include: ?? Watchful waiting. This is often suggested if the hernia is small and you have had no symptoms. ?? No medical procedure will be done unless symptoms develop. ?? You will need to watch closely for symptoms. If any occur, contact your healthcare provider right away. ?? Surgery. This is used if the hernia is larger or you have symptoms. ?? Open surgery. This is usually an outpatient procedure (you will not stay overnight in a hospital). An cut (incision) is made through the skin in the groin. The hernia is put back inside the abdomen. The weak area in the muscles is then repaired by herniorrhaphy or hernioplasty. Herniorrhaphy: inthis type of surgery, the weak muscles are sewn back together. Hernioplasty: a patch or mesh is used to close the weak area in the abdominal wall. ?? Laparoscopy. In this procedure, a surgeon makes small incisions. A thin tube with a tiny video camera (called a laparoscope) is put into the abdomen. The surgeon repairs the hernia with mesh by looking with the video camera and using two long instruments. HOME CARE INSTRUCTIONS ?? After surgery to repair an inguinal hernia: ?? You will need to take pain medicine prescribed by your healthcare provider. Follow all directions carefully. ?? You will need to take care of the wound from the incision. ?? Your activity will be restricted for awhile. This will probably include no heavy lifting for several weeks. You also should not do anything too active for a few weeks. When you can return to work will depend on the type of job that you have. ?? During watchful waiting periods, you should: ?? Maintain a healthy weight. ?? Eat a diet high in fiber (fruits, vegetables and whole grains). ?? Drink plenty of fluids to avoid constipation. This means drinking enough water and other liquidsto keep your urine clear or pale yellow. ?? Do not lift heavy objects. ?? Do not stand for long periods of time. ?? Quit smoking. This should keep you from developing a frequent cough. SEEK MEDICAL CARE IF: ?? A bulge develops in your groin area. ?? You feel pain, a burning sensation or pressure in the groin. This might be worse if you are lifting or straining. ?? You develop a fever of more than 100.5?? F (38.1?? C). SEEK IMMEDIATE MEDICAL CARE IF: ?? Pain in the groin increases suddenly. ?? A bulge in the groin gets bigger suddenly and does not go down. ?? For men, there is sudden pain in the scrotum. Or, the size of the scrotum increases. ?? A bulge in the groin area becomes red or purple and is painful to touch. ?? You have nausea or vomiting that does not go away. ?? You feel your heart beating much faster than normal. ?? You cannot have a bowel movement or pass gas. ?? You develop a fever of more than 102.0?? F (38.9?? C). Document Released: 01/11/2010 Document Revised: 11/16/2012 Document Reviewed: 01/11/2010 ExitCare?? Patient Information ??2013 [email or web address]. documented in this encounter Plan of Treatment Upcoming Encounters Date Type Department Care Team (Late st Contact Info) Description 07/29/2024 9:00 AM EST Appointment [facility] [address] [place] [address] Jomar Kim MD [address] [place] [address] Scheduled Referrals Name Type Priority Associated Diagnoses Orde r Schedule AMB REFERRAL TO GENERAL SURGERY Outpatient Referral Routine Ventral hernia Ordered: 04/11/2014 AMB REFERRAL TO ENT Outpatient Referral Routine ETD (eustachian tube dysfunction), left Deviated septum Epistaxis Ordered: 04/11/2014 documented as of this encounter Visit Diagnoses Diagnosis Ventral hernia- Primary Ventral hernia, unspecified, without mention of obstruction or gangrene ETD (Eustachian tube dysfunction), left Deviated septum Deviated nasal septum Epistaxis documented in this encounter Discontinued Medications Medication Sig Discontinue Reason Start Date End Da te sodium chloride (SODIUM CHLORIDE) 0.65 % nasal sprayIndications:Epista xis 1 [place] by Nasal route 3 times daily for 7 days. DELETE- Entered in Error 04/11/2014 04/11/2014 documented as of this encounter Care Teams Jersey Knitter Relationship Specialty Start Date End Date Patrice Lombardi DO [address] [place] [phone] PCP - General Family Medicine 08/10/12 04/24/14 Garett Holt MD [address] [place] [address] Internal Medicine-Gastroenterology 12/22/12 documented as of this encounter
--- OUTSIDE RECORDS SUMMARY | 2024-07-22 16:19 | XMS_ITS | Encounter Summary ---
Author Organization [place] [address] Care Team Providers Care Solderer Name Role Phone Harjit Orellana DO, Viral Primary Care Provider [phone] Garett Holt MD Unavailable Reason for Visit * Reason Onset Date Comments Other 01/11/2013 Encounter Details Date Type Department Care Team (Late st Contact Info) Description 01/11/2013 Telephone [facility] [address] [place] [address] Nanda Huitron LPN [address] [place] [address] Other Social History Tobacco Use [...] Telephone Encounter - Nanda Huitron LPN - 01/11/2013 11:45 AM EDT They are saying [facility] did not receive meds orders. They were escribed on 01/06/13. documented in this encounter Plan of Treatment Upcoming Encounters Date Type Department Care Team (Late st Contact Info) Description 07/29/2024 9:00 AM EST Appointment [facility] [address] [facility] [address] Jomar Kim MD [address] [place] [address] documented as of this encounter Visit Diagnoses Not on filedocumented in this encounter Care Teams Solderer Relationship Specialty Start Date End Date Patrice Lombardi DO [address] [place] [phone] PCP - General Family Medicine 08/10/12 04/24/14 Garett Holt MD [address] [place] [address] Internal Medicine-Gastroenterology 12/22/12 documented as of this encounter
--- OUTSIDE RECORDS SUMMARY | 2024-07-22 16:19 | XMS_ITS | Encounter Summary ---
Author Organization [place] [address] Care Team Providers Care Delivery Clerk Name Role Phone Harjit Orellana DO, Viral Primary Care Provider [phone] Garett Holt MD Unavailable [phone] Reason for Visit * Reason Onset Date Comments Referral 05/25/2013 Encounter Details Date Type Department Care Team (Late Contact Info) Description 05/25/2013 Telephone [facility] [address] [place] [address] Patrice Lombardi V, DO [address] [place] [address] Referral Social History Tobacco Use Types Packs/Day [...] encounter Miscellaneous Notes * Telephone Encounter - Ayesha Pop Alexander - 05/25/2013 11:08 AM EDT 09-17-13 pt scheduled for MRI L spine at [facility] on Friday05-28-13 at 4 pm pw documented in this encounter Plan of Treatment Upcoming Encounters Date Type Department Care Team (Late st Contact Info) Description 07/29/2024 9:00 AM EST Appointment [facility] [address] [place], [place] [phone] Jomar Kim MD [address] [place] [address] documented as of this encounter Visit Diagnoses Not on filedocumented in this encounter Care Teams Delivery Clerk Relationship Specialty Start Date End Date Patrice Lombardi DO [address] [place] [address] PCP - General Family Medicine 08/10/12 04/24/14 Garett Holt MD [address] [place] [address] Internal Medicine-Gastroenterology 12/22/12 documented as of this encounter
--- OUTSIDE RECORDS SUMMARY | 2024-07-22 16:19 | XMS_ITS | Encounter Summary ---
Author Organization [place] [address] Care Team Providers Care Can Feeder Name Role Phone Harjit Orellana DO, Viral Primary Care Provider [phone] Nannette Holt MD Unavailable Reason for Visit * Reason Onset Date Comments Results 02/24/2013 Medication Management 02/24/2013 Encounter Details Date Type Department Care Team (Late st Contact Info) Description 02/24/2013 Telephone [facility] [address] [address] Nannette Holt MD [address] [place] [id number] Results; Medication Management Social History Tobacco Use Types [...] Refills Last Filled Start Date End Date Amoxicill-Clarithr o-Lansopraz (PREVPAC) 500-500-30 mg combo pack Follow package directions. 1 Each 0 02/24/2013 3 documented in this encounter Miscellaneous Notes * Telephone Encounter - Andra Garcia LPN - 02/24/2013 1:49 PM EDT Pt aware of results and to hold prilosec with prev pac * Telephone Encounter - Andra Garcia LPN - 02/24/2013 1:45 PM EDT Message copied by ANDRA GARCIA on FriFeb 24, 2013 1:45 PM ------ Message from: NANNETTE HOLT Created: FriFeb 22, 2013 1:03 PM H pylori + biopsy. Call in prevPak for patient ------ documented in this encounter Plan of Treatment Upcoming Encounters Date Type Department Care Team (Late st Contact Info) Description 07/29/2024 9:00 AM EST Appointment [facility] [address] [place], [place] [id number] Jomar Kim MD [address] [place] [address] documented as of this encounter Visit Diagnoses Not on filedocumented in this encounter Care Teams Can Feeder Relationship Specialty Start Date End Date Patrice Lombardi V, DO [address] [place] [phone] PCP - General Family Medicine 08/10/12 04/24/14 Nannette Holt MD [address] [place] [address] Internal Medicine-Gastroenterology 12/22/12 documented as of this encounter
--- OUTSIDE RECORDS SUMMARY | 2024-07-22 16:19 | XMS_ITS | Encounter Summary ---
Author Organization [place] [address] Care Team Providers Care Loading Rack Supervisor Name Role Phone Harjit Orellana DO, Viral Primary Care Provider [phone] Garett Holt MD Unavailable [phone] Reason for Referral * Stress (Routine) - Closed Specialty Diagnoses / Procedures Referred By Contac t Referred To Contact Cardiac Diagnostic Imaging Diagnoses Chest pain SOB (shortness of breath) Arm pain Morbid obesity (HCC) Nonsmoker Leg pain, right Procedures NM MYOCARDIAL PERFUSION SPECT STRESS AND REST Ruiz Stokes MD Phone: tel: fax: [address] [place] [address] Phone: tel: fax: Referral ID Status Reason Start Date Expiration Date Visits Re quested Visits Authorized [id number] Closed 03/25/2013 04/24/2013 5 5 Reason for Visit * Stress (Routine) - Closed Specialty Diagnoses / Procedures Referred By Contac t Referred To Contact Cardiac Diagnostic Imaging Diagnoses Chest pain SOB (shortness of breath) Arm pain Morbid obesity (HCC) Nonsmoker Leg pain, right Procedures NM MYOCARDIAL PERFUSION SPECT STRESS AND REST Ruiz Stokes MD Phone: tel: fax: [facility] [address] [place] [address] Phone: tel: fax: Referral ID Status Reason Start Date Expiration Date Visits Re quested Visits Authorized [id number] Closed 03/25/2013 04/24/2013 5 5 Encounter Details Date Type Department Care Team (Latest Contact Info) Description 03/25/2013 9:45 AM EDT - 03/25/2013 10:00 AM EDT Hospital Encounter [facility] [address], [address] [place] [id number] Ruiz Stokes MD [address] [place], [place] [id number] Chest pain; SOB (shortness of breath); Arm pain; Morbid obesity (HCC); Nonsmoker; Leg pain, right Discharge Disposition: Home or Self Care Social [...] 9:00 AM EST Appointment [facility] [address] [place] [address] Jomar Kim MD [address] [place] [address] documented as of this encounter Procedures Procedure Name Priority Date/Time Associated Diagnosis Comments NM MYOCARDIAL PERFUSION SPECT STRESS AND REST Routine 03/25/2013 11:40 AM EDT Chest pain SOB (shortness of breath) Arm pain Morbid obesity (HCC) Nonsmoker Leg pain, right documented in this encounter Results * NM MYOCARDIAL PERFUSION SPECT STRESS AND REST (03/25/2013 11:40 AM EDT) Ejection Fraction 70 % PYRAMIS Anatomical Region Laterality Modality Nuclear Medicine 03/25/2013 11:0 6 AM EDT Impressions 03/25/2013 2:28 PM EDT SPECT RESULTS Technical Quality: ?? Technically adequate study Raw Data Analysis: Perfusion: ?Small reversible anterio-lateral reversible defect ? Fixed inferior wall defect noted with normal wall motion thus most likely secondary to diaphragmatic ? artifact. ?? FUNCTION (calculated via Gated SPECT) ?Post Stress LV EF:70 ?% ?TID: ??0.76 EDV: ? 86 ?ml ? (70-100 ml) ?ESV: ?26 ?ml ? (30-50 ml) EDVI: ?35 ?ml/m? ??(30-50 ml/m?) ?ESVI: ? 11 ?ml/m? ??(15-30 ml/m?) Technical Quality: ?Gated SPECT appears to be visually accurate LV Size & Function: ?? Normal left ventricular wall motion and contractility. ?? LV Regional Function: No wall motion or thickening abnormalities. ?? IMPRESSIONS Small reversible anterio-lateral reversible defect. ?? Fixed inferior wall defect noted with normal wall motion thus most likely secondary to diaphragmatic artifact. ?? Normal left ventricular wall motion and contractility. ?? Nondiagnostic ekg with Lexiscna protocol ?? Narrative Procedure Note Ruiz Stokes MD - 03/25/2013 IMPRESSION SPECT RESULTS Technical Quality: Technically adequate study Raw Data Analysis: Perfusion: Small reversible anterio-lateral reversible defect Fixed inferior wall defect noted with normal wallmotion thus most likely secondary to diaphragmatic artifact. FUNCTION (calculated via Gated SPECT) Post Stress LV EF:70 %TID: 0.76 EDV: 86 ml (70-100 ml) ESV: 26 ml(30-50 ml) EDVI: 35 ml/m? (30-50 ml/m?) ESVI: 11ml/m? (15-30 ml/m?) Technical Quality: Gated SPECT appears to be visually accurate LV Size & Function: Normal left ventricular wall motion andcontractility. LV Regional Function: No wall motion or thickening abnormalities. IMPRESSIONS Small reversible anterio-lateral reversible defect. Fixed inferior wall defect noted with normal wall motion thus most likelysecondary to diaphragmatic artifact. Normal left ventricular wall motion and contractility. Nondiagnostic ekg with Lexiscna protocol us Ruiz Stokes MD IMG NM CARDIAC ORDERABLES Final Result documented in this encounter Visit Diagnoses Diagnosis Chest pain Chest pain, unspecified SOB (shortness of breath) Shortness of breath Arm pain Pain in limb Morbid obesity (HCC) Morbid obesity Nonsmoker Other specified conditions influencing health status Leg pain, right Pain in limb documented in this encounter Administered Medications Inactive Administered Medications - up to 1 most recent administrations Medication Order MAR Action Action Date Dose Rate Site Tc-99m tetrofosmin (MYOVIEW) injection 10.6 magdalena Curie 10.6 millicurie, Intravenous, ONCE PRN, 1 dose, Starting on Cyn 03/25/13 at 1022, Until Cny 03/25/13 at 1022, Radiology Procedure, Administration dose must be within 10% of the ordered dose for radiopharmaceutical medications., Radiology Given 03/25/2013 10:22 AM EDT 10.6 millicuries Tc-99m tetrofosmin (MYOVIEW) injection 32.7 magdalena Curie 32.7 millicurie, Intravenous, ONCE PRN, 1 dose, Starting on Cyn 03/25/13 at 1139, Until Cyn 03/25/13 at 1140, Radiology Procedure, Administration dose must be within 10% of the ordered dose for radiopharmaceutical medications., Radiology Given 03/25/2013 11:40 AM EDT 32.7 millicuries documented in this encounter Care Teams Loading Rack Supervisor Relationship Specialty Start Date End Date Patrice Lombardi DO [address] [place] [address] PCP - General Family Medicine 08/10/12 04/24/14 Garett Holt MD [address] [place] [address] Internal Medicine-Gastroenterology 12/22/12 documented as of this encounter
--- OUTSIDE RECORDS SUMMARY | 2024-07-22 16:19 | XMS_ITS | Encounter Summary ---
Author Organization [facility] [place] [address] Care Team Providers Care Control Clerk Name Role Phone Harjit Orellana DO, Viral Primary Care Provider [phone] Garett Holt MD Unavailable [phone] Reason for Visit * Reason Onset Date Comments Referral 03/04/2013 Encounter Details Date Type Department Care Team (Late st Contact Info) Description 03/04/2013 Telephone [facility] [address] [place] [address] Lombardi, Viral V, DO [address] [place] [address] Referral Social History Tobacco Use [...] encounter Miscellaneous Notes * Telephone Encounter - Eunice Rosa - 03/04/2013 11:49 AM EDT Needs [employer] referral - id # [id number] for Dr Andrew 03/12/13 documented in this encounter Plan of Treatment Upcoming Encounters Date Type Department Care Team (Late st Contact Info) Description 07/29/2024 9:00 AM EST Appointment [facility] [address] [place] [address] Jomar Kim MD [address] [place] [address] documented as of this encounter Visit Diagnoses Not on filedocumented in this encounter Care Teams Control Clerk Relationship Specialty Start Date End Date Patrice Lombardi DO [address] [place] [address] PCP - General Family Medicine 08/10/12 04/24/14 Garett Holt MD [address] [place] [address] Internal Medicine-Gastroenterology 12/22/12 documented as of this encounter
--- OUTSIDE RECORDS SUMMARY | 2024-07-22 16:19 | XMS_ITS | Encounter Summary ---
Author Organization [place] [address] Care Team Providers Care Production Planning Supervisor Name Role Phone Harjit Orellana DO, Viral Primary Care Provider [phone] Garett Holt MD Unavailable [phone] Reason for Visit * Echo (Routine) - Closed Specialty Diagnoses / Procedures Referred By Ron t Referred To Contact Cardiac Diagnostic Imaging Diagnoses Chest pain SOB (shortness of breath) Arm pain Morbid obesity (HCC) Nonsmoker Leg pain, right Procedures EC ECHOCARDIOGRAM COMPLETE W DOPPLER AND COLOR FLOW MAPPING Ruiz Stokes MD Phone: tel: fax: [facility] [address] [place] [address] Phone: tel: fax: Referral ID Status Reason Start Date Expiration Date Visits Re quested Visits Authorized [id number] Closed 03/25/2013 04/24/2013 1 1 Encounter Details Date Type Department Care Team (Latest Contact Info) Description 03/25/2013 10:02 AM EDT - 03/25/2013 11:59 PM EDT Hospital Encounter [facility] [address] [place] [address] Ruiz Stokes MD [address] [place] [address] Chest pain; SOB (shortness of breath); Arm [...] 9:00 AM EST Appointment [facility] [address] [place] [address] Jomar Kim MD [address] [place] [address] documented as of this encounter Procedures Procedure Name Priority Date/Time Associated Diagnosis Comments EC ECHOCARDIOGRAM COMPLETE W DOPPLER AND COLOR FLOW MAPPING Routine 03/25/2013 11:14 AM EDT Chest pain SOB (shortness of breath) Arm pain Morbid obesity (HCC) Nonsmoker Leg pain, right documented in this encounter Results * EC ECHOCARDIOGRAM COMPLETE W DOPPLER AND COLOR FLOW MAPPING (03/25/2013 11:14 AM EDT) Ejection Fraction 55 % PYRAMIS Anatomical Region Laterality Modality Electrocardiogra phy 03/25/2013 10:3 1 AM EDT Impressions 03/26/2013 3:38 PM EDT ??FINDINGS ??LV EF ??= ??55% ??Left Ventricle ? Left ventricular ejection fraction is estimated at 55- 60%. ? Left ventricular cavity size normal. ? No obvious regional wall motion abnormalities. ??Right Ventricle ?The right ventricle is normal in size and function. ??Right Atrium ? The right atrium is normal in size. ??Left Atrium ?The left atrium is normal in size. ??Mitral Valve ? Structurally normal mitral valve without significant stenosis or prolapse. ? There is no mitral regurgitation. ??Aortic Valve ? Structurally normal aortic valve without significant sclerosis or stenosis. ? There is no aortic regurgitation. ??Tricuspid Valve ?Structurally normal tricuspid valve without significant stenosis. ? There is trace tricuspid regurgitation. ??Right ventricular systolic pressure estimated at 30mmHg. ??Pulmonic Valve ? Structurally normal pulmonic valve without significant stenosis. ? There is no pulmonic regurgitation. ??Pericardium ?Normal pericardium without effusion. ??Aorta ?Normal aortic root dimension. ??CONCLUSIONS ??Left ventricular ejection fraction is estimated at 55-60%. ??No obvious regional wall motion abnormalities. ??Right ventricular systolic pressure estimated at 30mmHg. ??No valvular pathology Narrative Procedure Note Ruiz Stokes MD - 03/26/2013 IMPRESSION FINDINGS LV EF = 55% Left Ventricle Left ventricular ejection fraction is estimated at55-60%. Left ventricular cavity size normal. No obvious regional wall motion abnormalities. Right Ventricle The right ventricle is normal in size and function. Right Atrium The right atrium is normal in size. Left Atrium The left atrium is normal in size. Mitral Valve Structurally normal mitral valve without significantstenosis or prolapse. There is no mitral regurgitation. Aortic Valve Structurally normal aortic valve without significantsclerosis or stenosis. There is no aortic regurgitation. Tricuspid Valve Structurally normal tricuspid valve withoutsignificant stenosis. There is trace tricuspid regurgitation. Rightventricular systolic pressure estimated at 30mmHg. Pulmonic Valve Structurally normal pulmonic valve withoutsignificant stenosis. There is no pulmonic regurgitation. Pericardium Normal pericardium without effusion. Aorta Normal aortic root dimension. CONCLUSIONS Left ventricular ejection fraction is estimated at 55-60%. No obvious regional wall motion abnormalities. Right ventricular systolic pressure estimated at 30mmHg. No valvular pathology us Ruiz Stokes MD IMG ECHO ORDERABLES Final Result documented in this encounter Visit Diagnoses Diagnosis Chest pain Chest pain, unspecified SOB (shortness of breath) Shortness of breath Arm pain Pain in limb Morbid obesity (HCC) Morbid obesity Nonsmoker Other specified conditions influencing health status Leg pain, right Pain in limb documented in this encounter Care Teams Production Planning Supervisor Relationship Specialty Start Date End Date Patrice Lombardi DO [address] [place] [address] PCP - General Family Medicine 08/10/12 04/24/14 Garett Holt MD [address] [place] [address] Internal Medicine-Gastroenterology 12/22/12 documented as of this encounter
--- OUTSIDE RECORDS SUMMARY | 2024-07-22 16:19 | XMS_ITS | Encounter Summary ---
Author Organization [facility] [place] [address] Care Team Providers Care Machine Zipper Trimmer Name Role Phone Harjit Orellana DO, Viral Primary Care Provider [phone] Garett Holt MD Unavailable [phone] Reason for Visit * Reason Onset Date Comments Other 05/27/2013 Encounter Details Date Type Department Care Team (Late st Contact Info) Description 05/27/2013 Telephone [facility] [address] [place] [address] Wendy Espinoza LPN [address] [place] [address] Other Social History Tobacco Use [...] Telephone Encounter - Wendy Espinoza LPN - 05/28/2013 12:59 PM EDT other documented in this encounter Plan of Treatment Upcoming Encounters Date Type Department Care Team (Late st Contact Info) Description 07/29/2024 9:00 AM EST Appointment [facility] [address] [place] [address] Jomar Kim MD [address] [place] [address] documented as of this encounter Visit Diagnoses Not on filedocumented in this encounter Care Teams Machine Zipper Trimmer Relationship Specialty Start Date End Date Patrice Lombardi DO [address] [place] [address] PCP - General Family Medicine 08/10/12 04/24/14 Garett Holt MD [address] [place] [address] Internal Medicine-Gastroenterology 12/22/12 documented as of this encounter
--- OUTSIDE RECORDS SUMMARY | 2024-07-22 16:19 | XMS_ITS | Encounter Summary ---
Author Organization [place] [address] Care Team Providers Care Septic Pump Truck Driver Name Role Phone Harjit Orellana DO, Viral Primary Care Provider [phone] Garett Holt MD Unavailable [phone] Reason for Referral * Echo (Routine) - Closed Specialty Diagnoses / Procedures Referred By Contac t Referred To Contact Cardiac Diagnostic Imaging Diagnoses Chest pain SOB (shortness of breath) Arm pain Morbid obesity (HCC) Nonsmoker Leg pain, right Procedures EC ECHOCARDIOGRAM COMPLETE W DOPPLER AND COLOR FLOW MAPPING Ruiz Stokes MD Phone: tel: fax: [facility] [address] [facility], [address] [place] [address] Phone: tel: fax: Referral ID Status Reason Start Date Expiration Date Visits Re quested Visits Authorized [id number] Closed 03/25/2013 04/24/2013 1 1 * Stress (Routine) - Closed Specialty Diagnoses / Procedures Referred By Contac t Referred To Contact Diagnoses Chest pain SOB (shortness of breath) Arm pain Morbid obesity (HCC) Nonsmoker Leg pain, right Procedures ST STRESS TEST Ruiz Colón MD Phone: tel: fax: Referral ID Status Reason Start Date Expiration Date Visits Re quested Visits Authorized [id number] Closed 03/12/2013 09/08/2013 1 1 * Stress (Routine) - Closed Specialty Diagnoses / Procedures Referred By Contac t Referred To Contact Cardiac Diagnostic Imaging Diagnoses Chest pain SOB (shortness of breath) Arm pain Morbid obesity (HCC) Nonsmoker Leg pain, right Procedures NM MYOCARDIAL PERFUSION SPECT STRESS AND REST Ruiz Stokes MD Phone: tel: fax: [facility] [address] [place] [address] Phone: tel: fax: Referral ID Status Reason Start Date Expiration Date Visits Re quested Visits Authorized [id number] Closed 03/25/2013 04/24/2013 5 5 Reason for Visit * Reason Comments Chest Pain CONSULT/New pt per D r Lombardi for mid-sternal chest pain. Shortness of Breath getting worse. Pain Pain in both arms in to back. Encounter Details Date Type Department Care Team (Late st Contact Info) Description 03/12/2013 1:45 PM EDT Office Visit [facility] [address] [address] Ruiz Stokes MD [address] [place] [address] [place] [address] Chest pain (Primary Dx); SOB (shortness of breath); Arm pain; Morbid obesity (HCC); Nonsmoker; Leg pain, right; Systolic murmur; Chest discomfort Social History Tobacco Use Types [...] Reading Time Taken Comments Blood Pressure 124/82 03/12/2013 1:59 PM EDT Left arm; thigh cuff. Pulse 80 03/12/2013 1:59 PM EDT Temperature - - Respiratory Rate - - Oxygen Saturation - - Inhaled Oxygen Concentration - - Weight 126.6 kg (279 lb) 03/12/2013 1:5 9 PM EDT Height 162.6 cm (5' 4 ) 03/12/2013 1:59 PM EDT Body Mass Index 47.89 03/12/2013 1:59 PM EDT documented in this encounter Progress Notes * Ruiz Stokes MD - 03/15/2013 4:10 PM EDT Cardiology Progress Note Patient Name: Alyssa Jamil : 1955 Subjective Chief Complaint Patient presents with ??? Chest Pain CONSULT/New pt per Dr Lombardi for mid-sternal chest pain. ??? Shortness of Breath getting worse. ??? Pain Pain in both arms into back. HPI 57 yo consult for worsening SSCP with exertion radiation to mid shoulder in back Worsening sx of sob over weeks and mo No hx of CAD Denies previous cardiac work up EKG NSR with NSST changes Nonsmoker ROS Denies: fever, chills, nausea, vomiting, dizziness, headaches, diarrhea Past Medical History Diagnosis Date ??? Shortness of breath ??? Asthma ??? Other and unspecified angina pectoris ??? Heartburn nausea after eating ??? Ulcer ??? Arthritis all over ??? 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 Diabetes mellitus borderline ??? Anemia on iron Current Outpatient Rx Name Route Sig Dispense Refill ??? naproxen sodium (ANAPROX) 220 mg tablet Oral Take 220 mg by mouth as needed. ??? iron polysaccharides (FERREX 150 FORTE PLUS) 150-60-25-1 mz-se-rmz-mg Cap Oral Take 1 Cap by mouth daily. 90 Cap 1 ??? omeprazole (PRILOSEC) 20 mg Oral Take 1 Cap by mouth daily. 90 Cap 1 History Social History ??? Marital Status: Spouse Name: N/A Number of Children: N/A ??? Years of Education: N/A Occupational History ??? Not on file. Social History Main Topics ??? Smoking status: Never Smoker ??? Smokeless tobacco: Never Used ??? [...] Age of Onset ??? Heart Disease Father Objective Filed Vitals: 03/12/13 1359 BP: 124/82 Pulse: 80 Exam: GENERAL APPEARANCE: In no acute distress HEENT: Normocephalic, Atraumatic NECK: No JVD - No Bruit RESPIRATORY: Normal breath sounds bilateral HEART: Normal S1 S2- No S3, S4 No Murmur, rub or gallop VASCULAR: Normal pulses, equal, bilateral ABDOMEN: Soft, nontender, no organomegaly, no distension NEUROLOGIC: Alert, oriented X 3- Grossly intact, nonfocal SKIN: No rash EXTREMITIES: No edema- No cynosis Results for orders placed in visit on 03/12/13 POCT EKG Impression: NSR NSST changes Labs No results found for this basename: CHOLESTEROL, HDL, LDLCALC, TRIG No results found for this basename: INR, PROTIME Lab Results Component Value Date WBC 7.9 03/12/2013 WBC 10.6 01/06/2013 WBC 8.3 10/20/2012 HGB 11.6* 03/12/2013 HGB 12.1 01/06/2013 HGB 11.3* 10/20/2012 HCT 36.4 03/12/2013 HCT 37.3 01/06/2013 HCT 34.5* 10/20/2012 MCV 86.7 03/12/2013 MCV 84.7 01/06/2013 MCV 84.7 10/20/2012 PLT 284 01/06/2013 PLT 265 10/20/2012 PLT 236 07/05/2011 Lab Results Component Value Date HGBA1C 6.0 10/20/2012 Lab Results Component Value Date NA 143 10/20/2012 NA 141 06/22/2012 K 4.2 10/20/2012 K 4.6 06/22/2012 BUN 13 10/20/2012 BUN 12 06/22/2012 CALCIUM 9.2 10/20/2012 CALCIUM 9.6 06/22/2012 CL 104 10/20/2012 CL 102 06/22/2012 CO2 29 10/20/2012 CO2 28 06/22/2012 CREATININE 0.6 10/20/2012 CREATININE 0.73 06/22/2012 GLU 95 10/20/2012 Lab Results Component Value Date ALT 19 06/22/2012 AST 14 06/22/2012 ALKPHOS 89 06/22/2012 BILITOT 0.2 06/22/2012 Assessment Patient Active Problem List Diagnosis Date Noted ??? Chest discomfort 03/15/2013 ??? Leg pain, right 03/12/2013 ??? SOB (shortness of breath) 03/12/2013 ??? Systolic murmur 03/12/2013 ??? Dysphagia 02/17/2013 ??? Encounter for screening colonoscopy 02/17/2013 ??? Esophageal reflux ??? Osteoarthrosis, unspecified whether generalized or localized, unspecified site Impression 57 yo consult for worsening SSCP with exertion radiation to mid shoulder in back Worsening sx of sob over weeks and mo No hx of CAD Denies previous cardiac work up EKG NSR with NSST changes Nonsmoker Plan Proceed with nuclear stress test in light of new onset sx and risk factors 2-D echo to assess LV fxn and evidence of valvular pathology FLP/LFT's F/u in 1 mo to review results Thank you for allowing me to participate in the care of your patients. Please call with any concerns or questions Ruiz Stokes MD [facility] documented in this encounter Plan of Treatment Upcoming Encounters Date Type Department Care Team (Late st Contact Info) Description 07/29/2024 9:00 AM EST Appointment [facility] [address] [place] [address] Jomar Kim MD [address] [facility] [place] [address] Scheduled Orders Name Type Priority Associated Diagnoses Orde r Schedule ALANINE AMINOTRANSFERASE Lab Routine Chest pain SOB (shortness of breath) Arm pain Morbid obesity (HCC) Nonsmoker Leg pain, right 1 Occurrences starting 03/12/2013 until 09/10/2013 ASPARTATE AMINOTRANSFERASE Lab Routine Chest pain SOB (shortness of breath) Arm pain Morbid obesity (HCC) Nonsmoker Leg pain, right 1 Occurrences starting 03/12/2013 until 09/10/2013 LIPID SCREEN Lab Routine Chest pain SOB (shortness of breath) Arm pain Morbid obesity (HCC) Nonsmoker Leg pain, right 1 Occurrences starting 03/12/2013 until 09/10/2013 documented as of this encounter Procedures Procedure Name Priority Date/Time Associated Diagnosis Comments POCT EKG Routine 03/12/2013 2:01 PM EDT Chest pain SOB (shortness of breath) Arm pain Morbid obesity (HCC) Nonsmoker Leg pain, right documented in this encounter Results * ST STRESS TEST LEXISCAN (03/25/2013 11:48 AM EDT) Anatomical Region Laterality Modality Cardiac Stress T esting Narrative 03/26/2013 3:34 PM EDT [facility] INTERPRETATION Name: Alyssa Jamil ? Date: 03/25/2013 : 1955 1. Baseline EKG revealed: NSR 2. Baseline blood pressure was: 147/84 3. 0.4 mg Lexiscan given IV push at 60 seconds into protocol. 4. Lexiscan injection was done WITHOUT low level exercise. 5. The test was stopped due to pharmacologic stress protocol completion. 6. ?? The patient DID have symptoms during the procedure. Specific symptoms include: fatigue,dizziness, H/A 7. ?? Aminophylline 100 mg IV WAS given in recovery. 8. ?? Stress EKG was interpreted as: Non diagnostic EKG Lexiscan. Nuclear to follow. ?By: Dr. Stokes/Suraj TORREZ 9. Myoview scan report pending. 10. Critical result: NO ? Read at ___ am/pm ? Results reported to ___ at ___ am/pm by ___ ? No need to report results per DrMinesh ___ Procedure Note Ruiz Stokes MD - 03/26/2013 [facility] INTERPRETATION Name: Alyssa Jamil Date: 03/25/2013 : 1955 1. Baseline EKG revealed: NSR 2. Baseline blood pressure was: 147/84 3. 0.4 mg Lexiscan given IV push at 60 seconds into protocol. 4. Lexiscan injection was done WITHOUT low level exercise. 5. The test was stopped due to pharmacologic stress protocol completion. 6. The patient DID have symptoms during the procedure. Specific symptoms include: fatigue,dizziness, H/A 7. Aminophylline 100 mg IV WAS given in recovery. 8. Stress EKG was interpreted as: Non diagnostic EKG Lexiscan. Nuclearto follow. By: Dr. Stokes/Suraj TORREZ 9. Myoview scan report pending. 10. Critical result: NO Read at ___ am/pm Results reported to ___ at ___ am/pm by ___ No need to report results per DrMinesh ___ us Ruiz Stokes MD IMG STRESS ORDERABLES Mercedes l Result * NM MYOCARDIAL PERFUSION SPECT STRESS AND [...] wall motion and contractility. Nondiagnostic ekg with [employer] protocol us Ruiz Stokes MD IMG NM CARDIAC ORDERABLES Final Result * EC ECHOCARDIOGRAM COMPLETE W DOPPLER AND [...] Stokes MD IMG ECHO ORDERABLES Final Result * POCT EKG (03/12/2013 2:01 PM EDT) 03/12/2013 2:01 PM EDT Impressions SEP OFFICE - 03/12/2013 2:06 PM EDT NSR NSST changes Ruiz Stokes MD POINT OF CARE CARDIOLOGY F inal Result [facility] OFFICE documented in this encounter Visit Diagnoses Diagnosis Chest pain- Primary Chest pain, unspecified SOB (shortness of breath) Shortness of breath Arm pain Pain in limb Morbid obesity (HCC) Morbid obesity Nonsmoker Other specified conditions influencing health status Leg pain, right Pain in limb Systolic murmur Undiagnosed cardiac murmurs Chest discomfort Other chest pain Chest pain Chest pain, unspecified SOB (shortness of breath) Shortness of breath Arm pain Pain in limb Morbid obesity (HCC) Morbid obesity Nonsmoker Other specified conditions influencing health status Leg pain, right Pain in limb Chest pain Chest pain, unspecified SOB (shortness of breath) Shortness of breath Arm pain Pain in limb Morbid obesity (HCC) Morbid obesity Nonsmoker Other specified conditions influencing health status Leg pain, right Pain in limb Chest pain Chest pain, unspecified SOB (shortness of breath) Shortness of breath Arm pain Pain in limb Morbid obesity (HCC) Morbid obesity Nonsmoker Other specified conditions influencing health status Leg pain, right Pain in limb documented in this encounter Discontinued Medications Medication Sig Discontinue Reason Start Date End Da te Pwybcdxoc-Tcbfeeiyo-Bl nsopraz (PREVPAC) 500-500-30 mg combo packIndications:GERD (gastroesophageal reflux disease),Gastritis,H. pylori infection Follow package directions. DELETE-Therapy completed 02/26/2013 03/12/2013 documented as of this encounter Care Teams Septic Pump Truck Driver Relationship Specialty Start Date End Date Patrice Lombardi DO [address] [place] [address] PCP - General Family Medicine 08/10/12 04/24/14 Garett Holt MD [address] [place] [address] Internal Medicine-Gastroenterology 12/22/12 documented as of this encounter
--- OUTSIDE RECORDS SUMMARY | 2024-07-22 16:19 | XMS_ITS | Encounter Summary ---
Author Organization [place] [address] Care Team Providers Care Visual Specialist Name Role Phone Harjit V DO, Viral Primary Care Provider [phone] Garett Holt MD Unavailable [phone] Encounter Details Date Type Department Care Team (Late st Contact Info) Description 05/17/2013 Orders Only [facility] [address] [place] [address] Lombardi, Viral V, DO [address] [place] [address] Social History Tobacco Use Types Packs/Day [...] Appointment [facility] [address] [id number] Jomar Kim MD [address] [place] [address] documented as of this encounter Procedures Procedure Name Priority Date/Time Associated Diagnosis Comments REFLEX TIQ-QUEST Routine 05/17/2013 8:29 AM EDT TSH REFLEX-QUEST Routine 05/17/2013 8:29 AM EDT LIPID PANEL REFLEX-QUEST Routine 05/17/2013 8:29 AM EDT HEMOGLOBIN [id number] Routine 05/17/2013 8:29 AM EDT CBC WITH AUTO DIFF-QUEST Routine 05/17/2013 8:29 AM EDT BASIC METABOLIC PANEL-QUEST Routine 05/17/2013 8:29 AM EDT documented in this encounter Results * (ABNORMAL) HEMOGLOBIN [id number] (05/17/2013 8:29 AM EDT) Hemoglobin A1C 6.0(H) <5.7 % of total Hgb [facility] [place] Comment: According to ADA guidelines, hemoglobin A1c <7.0% represents optimal control in non- diabetic patients. Different metrics may apply to specific patient populations. Standards of Medical Care in Diabetes-2013. Diabetes Care. 2013;36:s11-s66 For the purpose of screening for the presence of diabetes <5.7% ? Consistent with the absence of diabetes 5.7-6.4% ?Consistent with increased risk for diabetes ?(prediabetes) >or=6.5% ?Consistent with diabetes This assay result is consistent with an increased risk of diabetes. Currently, no consensus exists for use of hemoglobin A1c for diagnosis of diabetes for children. 05/17/2013 8:29 AM EDT 05/17/2013 8:31 AM EDT Narrative [facility] - 05/18/2013 3:56 PM EDT FASTING Resulting Agency Comment Performing Organization Information: ?Site ID: OW ?Name: [facility] ?Address: [address] ?Director: Artemio Avila MD PhD Viral Lombardi V, DO [facility] ORDERABLES Fin al Result Performing Organization Address [facility] de Phone Number [facility] * TSH REFLEX-QUEST (05/17/2013 8:29 AM EDT) TSH Reflex 1.99 0.40 - 4.50 mIU/L [facility] 05/17/2013 8:29 AM EDT 05/17/2013 8:31 AM EDT Narrative [facility] - 05/18/2013 3:56 PM EDT FASTING Resulting Agency Comment Performing Organization Information: ?Site ID: OW ?Name: [facility] ?Address: [address] [place] [address] ?Director: Artemio Avila MD PhD Viral Lombardi V, DO [facility]MI[facility] ORDERABLES Fin al Result Performing Organization Address [facility] de Phone Number [facility] * REFLEX TIQ-QUEST (05/17/2013 8:29 AM EDT) REFLEX TIQ [facility] Comment: Our records indicate that you have ordered a client custom reflex order code. Only the initial test was performed because we do not have a client custom reflex testing authorization request form on file for you. Please contact a client services vice president if you would like additional testing done on this patient or contact your assistant store manager sales to obtain a client custom reflex testing authorization request form. 05/17/2013 8:29 AM EDT 05/17/2013 8:31 AM EDT Narrative [facility] - 05/18/2013 3:56 PM EDT FASTING Resulting Agency Comment Performing Organization Information: ?Site ID: OW ?Name: [facility] ?Address: [address] [place] [address] ?Director: Artemio Avila MD PhD us Viral Lombardi V, DO [facility] TEST IN QUESTION CODES F inal Result [facility] [address] [place] [id number] * (ABNORMAL) CBC WITH AUTO DIFF-QUEST (05/17/2013 8:29 AM EDT) WBC 7.9 3.8 - 10.8 Thousand/u L [facility] RBC 4.27 3.80 - 5.10 Million/uL [facility] Hemoglobin 11.9 11.7 - 15.5 g/dL [facility] Hematocrit 36.8 35.0 - 45.0 % [facility] MCV 86.3 80.0 - 100.0 fL [facility] MCH 27.9 27.0 - 33.0 pg [facility] MCHC 32.3 32.0 - 36.0 g/dL [facility] RDW 16.0(H) 11.0 - 15.0 % [facility] Platelets 269 140 - 400 Thousand/u L [facility] Neut# 5,475 1,500 - 7,800 cells/uL [facility] Lymph# 1,659 850 - 3,900 cells/uL [facility] Monocytes([place]) 529 200 - 950 cells/uL [facility] Eos 205 15 - 500 cells/uL [facility] [place] Baso# 32 0 - 200 cells/uL [facility] [place] Neut Percent 69.3 % [facility] Lymph Percent 21.0 % [facility] Monocytes 6.7 % [facility] Eos Percent 2.6 % [facility] Baso Percent 0.4 % [facility] 05/17/2013 8:29 AM EDT 05/17/2013 8:31 AM EDT Narrative [facility] - 05/18/2013 3:56 PM EDT FASTING Resulting Agency Comment Performing Organization Information: ?Site ID: OW ?Name: [facility] ?Address: [facility] [place] [address] ?Director: Artemio Avila MD PhD us Viral Lombardi V, DO [facility]MAT[facility] ORDERABLES Fi nal Result [facility] [address] [email or web address] [address], [facility] * (ABNORMAL) LIPID PANEL REFLEX-QUEST (05/17/2013 8:29 AM EDT) Cholesterol 202(H) 125 - 200 mg/dL [facility] HDL 56 > OR = 46 mg/dL [facility] [place] Triglyceride 75 <150 mg/dL [facility] [place] LDL Cholesterol 131(H) <130 mg/dL (calc) [facility] [place] Comment: Desirable range <100 mg/dL for patients with CHD or diabetes and <70 mg/dL for diabetic patients with known heart disease. CHOL/HDLC RATIO 3.6 < OR = 5.0 (calc) [facility] Non HDL Chol. (LDL+VLDL) 146 mg/dL (calc) [facility] Comment: Target for non-HDL cholesterol is 30 mg/dL higher than LDL cholesterol target. 05/17/2013 8:29 AM EDT 05/17/2013 8:31 AM EDT Narrative [facility] - 05/18/2013 3:56 PM EDT FASTING Resulting Agency Comment Performing Organization Information: ?Site ID: OW ?Name: [facility] ?Address: [facility] [place] [address] ?Director: Artemio Avila MD PhD us Viral Lombardi V, DO [facility]MISTR[facility] ORDERABLES Fin al Result [facility] [address] [place] [address], [facility] * BASIC METABOLIC PANEL-[facility] (05/17/2013 8:29 AM EDT) Glucose 98 65 - 99 mg/dL [facility] Comment: ? Fasting reference interval BUN 13 7 - 25 mg/dL [facility] Creatinine 0.68 0.50 - 1.05 mg/dL [facility] Comment: For patients >49 years of age, the reference limit for Creatinine is approximately 13% higher for people identified as -Eritrean. EGFR 97 > OR = 60 mL/min/1 .73m2 [facility] EGFR 113 > OR = 60 mL/min/1 .73m2 [facility] BUN/Creatinine Ratio NOT APPLICABLE 6 - 22 (calc) [facility] Sodium 141 135 - 146 mmol/L [facility] Potassium 4.3 3.5 - 5.3 mmol/L [facility] Chloride 103 98 - 110 mmol/L [facility] CO2 25 19 - 30 mmol/L [facility] Calcium 9.4 8.6 - 10.4 mg/dL [facility] 05/17/2013 8:29 AM EDT 05/17/2013 8:31 AM EDT Narrative [facility] - 05/18/2013 3:56 PM EDT FASTING Resulting Agency Comment Performing Organization Information: ?Site ID: OW ?Name: [facility] ?Address: [address] [place] [address] [place] [address] ?Director: Artemio Avila MD PhD us Viral Lombardi V, DO [facility] ORDERABLES Fin al Result [facility] [address] [id number] documented in this encounter Visit Diagnoses Not on filedocumented in this encounter Care Teams Visual Specialist Relationship Specialty Start Date End Date Patrice Lombardi DO [address] [place] [address] PCP - General Family Medicine 08/10/12 04/24/14 Garett Holt MD [address] [place] [address] Internal Medicine-Gastroenterology 12/22/12 documented as of this encounter
--- OUTSIDE RECORDS SUMMARY | 2024-07-22 16:19 | XMS_ITS | Encounter Summary ---
Author [place] [address] Care Team Providers Care Disability Coordinator Name Role Phone Harjit Orellana DO, Viral Primary Care Provider [phone] Garett Holt MD Unavailable [phone] Reason for Referral * MRI/CAT Scan (Routine) - Closed Specialty Diagnoses / Procedures Referred By Kianaac nimisha Referred To Contact Diagnoses Lumbar strain Procedures MRI LUMBAR SPINE WO CONTRAST pt [facility] at 4 pm Patrice Lombardi V DO [address] [place] [address] Phone: tel: fax: [facility] [place] [address] Referral ID Status Reason Start Date Expiration Date Visits Re quested Visits Authorized [id number] Closed 05/24/2013 11/20/2013 1 1 Reason for Visit * MRI/CAT Scan (Routine) - Closed Specialty Diagnoses / Procedures Referred By Contac t Referred To Contact Diagnoses Lumbar strain Procedures MRI LUMBAR SPINE WO CONTRAST pt scheduled for [facility] L [facility] on Friday05-28-13 at 4 pm Patrice Lombardi V DO [address] [place] [address] Phone: tel: fax: [facility] [address] [place] [address] Referral ID Status Reason Start Date Expiration Date Visits Re quested Visits Authorized [id number] Closed 05/24/2013 11/20/2013 1 1 Encounter Details Date Type Department Care Team (Latest Contact Info) Description 06/07/2013 8:20 AM EDT - 06/07/2013 11:59 PM EDT Hospital Encounter [facility] [place] [facility] [address] [place] [address] Patrice Lombardi V, DO [address] [place] [address] Lumbar strain Discharge Disposition: Home or Self Care Social [...] by mouth daily. 90 Cap 1 05/24/2013 01/02/2014 documented as of this encounter Discharge Disposition Disposition Code Departure Means Destination Home or Self Care documented in this encounter Plan of Treatment Upcoming Encounters Date Type Department Care Team (Late st Contact Info) Description 07/29/2024 9:00 AM EST Appointment [facility] [address] [place] [address] Jomar Kim MD [address] [place] [address] documented as of this encounter Procedures Procedure Name Priority Date/Time Associated Diagnosis Comments MRI LUMBAR SPINE WO CONTRAST Routine 06/07/2013 9:47 AM EDT Lumbar strain documented in this encounter Results * MRI LUMBAR SPINE WO CONTRAST (06/07/2013 9:47 AM EDT) Anatomical Region Laterality Modality L-spine Magnetic Resonan ce 06/07/2013 Impressions 06/07/2013 12:24 PM EDT IMPRESSION: Multilevel degenerative disc change and moderate to moderately severe facet arthropathy. Narrative 06/07/2013 12:24 PM EDT MRI OF THE LUMBAR SPINE WITHOUT CONTRAST, 06/07/2013 HISTORY: Bilateral leg pain. Low back pain. FINDINGS: There is normal alignment of the lumbar spine. The conus lies at T12-L1. There is normal marrow signal of the vertebral bodies. There is mild disc desiccation at L3-L4. There is moderate facet arthropathy. There is overall mild central canal stenosis. There is bilateral mild inferior narrowing of the neural foramen due to a broad disc bulge. At L4-L5, there is disc desiccation. There is a mild diffuse disc bulge and small marginal vertebral osteophytes. There is moderate facet arthropathy. There is overall mild central canal stenosis and bilateral mild inferior narrowing of the neural foramen. At L5-S1, there is prominent facet arthropathy which causes mild central canal stenosis. Bilateral moderate foraminal stenosis is present due to spurring from the facet joints and marginal vertebral osteophytes. Procedure Note Imelda Lee MD - 06/07/2013 MRI OF THE LUMBAR SPINE WITHOUT CONTRAST, 06/07/2013 HISTORY: Bilateral leg pain. Low back pain. FINDINGS: There is normal alignment of the lumbar spine. The conus lies at T12-L1.There is normal marrow signal of the vertebral bodies. There is mild disc desiccation at L3-L4. There is moderate facetarthropathy. There is overall mild central canal stenosis. There is bilateral mild inferior narrowing ofthe neural foramen due to a broad disc bulge. At L4-L5, there is disc desiccation. There is a mild diffuse disc bulgeand small marginal vertebral osteophytes. There is moderate facet arthropathy. There isoverall mild central canal stenosis and bilateral mild inferior narrowing of the neural foramen. At L5-S1, there is prominent facet arthropathy which causes mild centralcanal stenosis. Bilateral moderate foraminal stenosis is present due to spurring from thefacet joints and marginal vertebral osteophytes. IMPRESSION: Multilevel degenerative disc change and moderate to moderatelysevere facet arthropathy. us Viral Harjit Orellana DO IMG MRI ORDERABLES Final Resul t documented in this encounter Visit Diagnoses Diagnosis Lumbar strain Sprain of lumbar region documented in this encounter Care Teams Disability Coordinator Relationship Specialty Start Date End Date Patrice Lombardi DO [address] [place] [address] PCP - General Family Medicine 08/10/12 04/24/14 Garett Holt MD [address] [place] [phone] Internal Medicine-Gastroenterology 12/22/12 documented as of this encounter
--- OUTSIDE RECORDS SUMMARY | 2024-07-22 16:19 | XMS_ITS | Encounter Summary ---
Author Organization [place] [address] Care Team Providers Care Equities Analyst Name Role Phone Harjit Orellana DO, Viral Primary Care Provider [phone] Garett Holt MD Unavailable [phone] Reason for Referral * MRI/CAT Scan (Routine) - Closed Specialty Diagnoses / Procedures Referred By Ron bansal Referred To Contact Diagnoses Lumbar strain Procedures MRI LUMBAR SPINE WO CONTRAST pt scheduled for MRI L spine at [facility] on Friday05-28-13 at 4 pm Patrice Lombardi DO [address] [place] [address] Phone: tel: fax: [facility] [address] Referral ID Status Reason Start Date Expiration Date Visits Re quested Visits Authorized [id number] Closed 05/24/2013 11/20/2013 1 1 Reason for Visit * Reason Comments Rash left arm abdomen sym ptoms x1 month with itching Results discuss ultrasound, back xray blood work Back Pain lower back pain Leg Pain right leg pain sympt oms several weeks with severe pain tightness behind knee and has some spasms jumping of leg while laying Dizziness unsure if due to med ication taking but states if didn't have cane would fall Gastroesophageal Reflux stomach medicati on not helping Encounter Details Date Type Department Care Team (Late st Contact Info) Description 05/24/2013 10:10 AM EDT Office Visit [facility] [address] [place] [address] Lombardi, Viral V, DO [address] [place] [address] Epigastric pain (Primary Dx); Esophageal reflux; Anemia; Osteoarthrosis, unspecified whether generalized or localized, unspecified site; Rash; Lumbar strain Social History Tobacco Use Types Packs/Day Years [...] Sign Reading Time Taken Comments Blood Pressure 138/70 05/24/2013 10:57 AM EDT Pulse 80 05/24/2013 10:57 AM EDT Temperature 36.7 ??C (98.1 ??F) 05/24/2013 1 0:57 AM EDT Respiratory Rate 20 05/24/2013 10:5 7 AM EDT Oxygen Saturation - - Inhaled Oxygen Concentration - - Weight 126.3 kg (278 lb 6.4 oz) 013 10:57 AM EDT Height 162.6 cm (5' 4 ) 05/24/2013 10:5 7 AM EDT Body Mass Index 47.79 05/24/2013 10:57 AM EDT documented in this encounter Ordered Prescriptions Prescription Sig Dispense Quantity Refills Last Filled Start Date End Date permethrin (ELIMITE) 5 % cream Apply topically See Admin Instructions for 7 days. Apply repeat in 1 week if needed. 60 g 0 3 05/31/20 13 triamcinolone (KENALOG) 0.1 % creamIndications:Randolph h Apply topically 2 times daily for 10 days. 80 g 2 3 06/03/20 13 methylPREDNISolone (MEDROL DOSPACK) 4 mg tabletIndications:Os teoarthrosis, unspecified whether generalized or localized, unspecified site,Rash See package instructions 21 Tab 0 3 06/03/20 13 permethrin (ELIMITE) 5 % creamIndications:Randolph h Apply topically See Admin Instructions for 7 days. Apply repeat in 1 week if needed. 60 g 0 3 05/24/20 13 naproxen sodium (ANAPROX) 220 mg tabletIndications:Os teoarthrosis, unspecified whether generalized or localized, unspecified site Take 1 Tab by mouth as needed. 90 Tab 1 3 12/02/19 14 iron polysaccharides (FERREX 150 FORTE PLUS) 150-60-25-1 [id number]-mg CapIndications:Anemi a Take 1 Cap by mouth daily. 90 Cap 1 3 12/02/19 14 omeprazole (PRILOSEC) 20 mgIndications:Epigas tric pain,Esophageal reflux Take 1 Cap by mouth daily. 90 Cap 1 3 01/03/20 14 documented in this encounter Progress Notes * Patrice Lombardi V, - 05/24/2013 11:01 AM EDT Subjective: Patient ID: Alyssa Jamil is a 58 y.o. female. Chief Complaint Patient presents with ??? Rash left arm abdomen symptoms x1 month with itching ??? Results discuss ultrasound, back xray blood work ??? Back Pain lower back pain ??? Leg Pain right leg pain symptoms several weeks with severe pain tightness behind knee and has some spasms jumping of leg while laying ??? Dizziness unsure if due to medication taking but states if didn't have cane would fall ??? Gastrophageal Reflux stomach medication not helping HPI Hypertension - Patient's blood pressure has been running well. Medications are working well withoutside effects. Patient reports no symptoms of chest pain, headaches or orthostasis. Prior BP readings reviewed during this visit. BP Readings from Last 3 Encounters: 05/24/13 138/70 05/13/13 140/80 03/12/13 124/82 Patients past medical, family and social histories were reviewed and updated. There were no changesexcept as noted. Review of Systems Respiratory: Negative for shortness of breath. Cardiovascular: Negative for chest pain. Gastrointestinal: Positive for nausea and abdominal pain. Negative for vomiting and diarrhea. Musculoskeletal: Positive for back pain and arthralgias. Neurological: Positive for dizziness. Objective: Filed Vitals: 05/24/13 1057 BP: 138/70 Pulse: 80 Temp: 98.1 ??F (36.7 ??C) TempSrc: Oral Resp: 20 Height: 5' 4 (1.626 m) Weight: 278 lb 6.4 oz (126.281 kg) Body mass index is 47.76 kg/(m^2). Physical Exam Vitals reviewed. Constitutional: She [...] Abdominal: Soft. Bowel sounds are normal. Musculoskeletal: She exhibits tenderness. Lumbar back: She exhibits decreased range of motion, tenderness, pain and spasm. Neurological: She is alert and oriented to person, place, and time. Skin: Skin is warm. Assessment and Plan: Alyssa was seen today for rash, results, back pain, leg pain, dizziness and gastrophageal reflux. Diagnoses and associated orders for this visit: Epigastric pain - omeprazole (PRILOSEC) 20 mg; Take 1 Cap by mouth daily. Esophageal reflux - omeprazole (PRILOSEC) 20 mg; Take 1 Cap by mouth daily. Anemia - iron polysaccharides (FERREX 150 FORTE PLUS) 150-60-25-1 eb-gk-src-mg Cap; Take 1 Cap by mouth daily. Osteoarthrosis, unspecified whether generalized or localized, unspecified site - naproxen sodium (ANAPROX) 220 mg tablet; Take 1 Tab by mouth as needed. - methylPREDNISolone (MEDROL DOSPACK) 4 mg tablet; See package instructions Rash - Discontinue: permethrin (ELIMITE) 5 % cream; Apply topically See Admin Instructions for 7 days. Apply repeat in 1 week if needed. - methylPREDNISolone (MEDROL DOSPACK) 4 mg tablet; See package instructions - triamcinolone (KENALOG) 0.1 % cream; Apply topically 2 times daily for 10 days. Lumbar strain - MRI lumbar spine without contrast; Future Other Orders - permethrin (ELIMITE) 5 % cream; Apply topically See Admin Instructions for 7 days. Apply repeat in 1 week if needed. No Follow-up on file. documented in this encounter Miscellaneous Notes * Patient Instructions - Luiza Espinoza MA - 05/24/2013 11:05 AM EDT Degenerative Disc Disease Degenerative disc disease is a condition caused by the changes that occur in the spinal discs (cushions of the backbone) as you grow older. Spinal discs are soft and compressible discs located between the vertebrae (bones of the spine). They act like shock absorbers. Degenerative disc disease can affect the whole of the spine. However, the neck and the lower part of the back are most commonly affe cted. Many changes can occur in the spinal discs with aging. They are: ?? Spinal discs may dry out and shrink. ?? Small tears can occur in the annulus (tough outer covering of the disc). ?? The disc space can become smaller due to loss of water. ?? Bone spurs (abnormal growth in the bone) can occur. This can cause pressure on the nerve roots exiting the spinal canal leading to pain. ?? Spinal canal may get narrowed. Degenerative disc disease causes neck and back pain. This condition is treated by applying heat or ice and by taking medicines to relieve the pain. Your caregiver may suggest surgery, if the pain does not improve by these methods. CAUSES Degenerative disc disease is a condition caused by the changes that occur in the spinal discs with aging. The exact cause is not known but there is a genetic basis for many patients. Degenerative changes can occur due to loss of fluid in the disc. This makes the disc thinner and reduces the space between the backbones. Small cracks can develop in the outer layer of the disc. This can lead to the breakdown of the disc. You are more likely to get degenerative disc disease if you are overweight. Smoking cigarettes and doing heavy work such as weight lifting can also increase your risk of this condition. Degenerative changes can start after a sudden injury. Growth of bone spurs can compress the nerve roots and cause pain. SYMPTOMS The symptoms vary from person to person. Some people may have no pain, while others have severe pain. The pain may be so severe that it can limit your activities. The location of the pain depends on the part of your backbone that is affected. You will have neck or arm pain if a disc in the neck region is affected. You will have pain in your back, buttocks, or legs if the disc of the lower back isaffected. The pain becomes worse while bending, reaching up, or with twisting movements. The pain may start gradually and then get worse as time passes. It may also start after a major or minor injury. You may also feel numbness or tingling in the arms or legs. DIAGNOSIS Your caregiver will ask you about your symptoms and activities or habits that may cause the pain. He may also ask about any injuries, diseases or any treatments that you have had earlier. Your caregiver will examine you to check for the range of movement that is possible in the affected area, checkfor strength in your extremities and sensation in the areas supplied by different nerve roots supplying the arms and legs. X-ray of the spine may be included. Your caregiver may suggest other imagingtests, such as an MRI, if needed. TREATMENT The treatment includes rest, modifying your activities, and applying ice and heat. Your caregiver may prescribe medicines to reduce your pain and ask you to do some exercises to strengthen your back.Sometimes, you may need surgery. You and your caregiver will decide on the treatment that is best for you. HOME CARE INSTRUCTIONS ?? Follow the proper lifting and walking techniques as advised by your caregiver. ?? Maintain good posture. ?? Exercise regularly as advised. ?? Perform relaxation exercise. ?? Alter your habit of sitting, standing, and sleeping as advised. Change positions frequently. ?? Lose weight. ?? Stop smoking. ?? Use supportive footwear. SEEK MEDICAL CARE IF: The pain does not go away within 1-4 weeks. SEEK IMMEDIATE MEDICAL CARE IF: ?? The pain is severe. ?? You notice weakness in your arms, hands, or legs. ?? You begin to lose control of your bladder or bowel. MAKE SURE YOU: ?? Understand these instructions. ?? Will watch your condition. ?? Will get help right away if you are not doing well or get worse. Document Released: 06/21/2008 Document Re-Released: 08/07/2009 ExitCare?? Patient Information ??2009 [employer]. documented in this encounter Plan of Treatment Upcoming Encounters Date Type Department Care Team (Late st Contact Info) Description 07/29/2024 9:00 AM EST Appointment [facility] [address] [place] [address] Jomar Kim MD [address] [place] [address] documented as of this encounter Results * MRI LUMBAR SPINE [...] documented in this encounter Visit Diagnoses Diagnosis Epigastric pain- Primary Abdominal pain, epigastric Esophageal reflux Anemia Anemia, unspecified Osteoarthrosis, unspecified whether generalized or localized, unspecified site Rash Rash and other nonspecific skin eruption Lumbar strain Sprain of lumbar region Lumbar strain Sprain of lumbar region documented in this encounter Discontinued Medications Medication Sig Discontinue Reason Start Date End Da te omeprazole (PRILOSEC) 20 mgIndications:Epigastric pain,Esophageal reflux Take 1 Cap by mouth daily. Reorder 01/06/2013 05/24/2013 iron polysaccharides (FERREX 150 FORTE PLUS) 150-60-25-1 ru-lu-bsg-mg Cap Take 1 Cap by mouth daily. Reorder 01/18/2013 05/24/2013 naproxen sodium (ANAPROX) 220 mg tablet Take 220 mg by mouth as needed. Reorder 05/24/2013 permethrin (ELIMITE) 5 % creamIndications:Rash Apply topically See Admin Instructions for 7 days. Apply repeat in 1 week if needed. Alternate therapy 05/24/2013 05/24/2013 documented as of this encounter Care Teams Equities Analyst Relationship Specialty Start Date End Date Patrice Lombardi DO [address] [place] [id number] PCP - General Family Medicine 08/10/12 04/24/14 Garett Holt MD [address] [place] [id number] Internal Medicine-Gastroenterology 12/22/12 documented as of this encounter
--- OUTSIDE RECORDS SUMMARY | 2024-07-22 16:19 | XMS_ITS | Encounter Summary ---
Author Organization [place] [address] Care Team Providers Care Floor Director Name Role Phone Harjit Orellana DO, Viral Primary Care Provider Garett Holt MD Unavailable [phone] Reason for Referral * Consultation (Routine) - Closed Specialty Diagnoses / Procedures Referred By Ron bansal Referred To Contact Internal Medicine-Cardiovascula r Disease Diagnoses Chest pain Procedures pt to schedule and call us with johnson and Dr jade day O referral Patrice Lombardi DO [address] [place] [address] Phone: tel: fax: Ruiz Stokes MD [address] [place] [address] Phone: tel: fax: Referral ID Status Reason Start Date Expiration Date Visits Re quested Visits Authorized [id number] Closed 02/26/2013 08/25/2013 12 12 Reason for Visit * Reason Comments Abdominal Pain symptoms x2 months g radually worsening sharp burning with nausea finished prevpac and taking prilosec with no relief had upper and lower gi Dizziness headache x1 week Encounter Details Date Type Department Care Team (Late st Contact Info) Description 02/26/2013 8:30 AM EDT Office Visit [facility] [address] [place] [address] Patrice Lombardi V, DO [address] [place] [address] GERD (gastroesophageal reflux disease) (Primary Dx); Gastritis; H. pylori infection; Chest pain; Calf pain; Ankle pain Social History Tobacco Use Types Packs/Day [...] Reading Time Taken Comments Blood Pressure 118/80 02/26/2013 8:03 AM EDT Pulse 68 02/26/2013 8:03 AM EDT Temperature 36.6 ??C (97.8 ??F) 02/26/2013 8:03 AM ED T Respiratory Rate 20 02/26/2013 8:03 AM EDT Oxygen Saturation - - Inhaled Oxygen Concentration - - Weight 127 kg (280 lb) 02/26/2013 8:03 AM EDT Height 162.6 cm (5' 4 ) 02/26/2013 8:03 AM EDT Body Mass Index 48.06 02/26/2013 8:03 AM EDT documented in this encounter Ordered Prescriptions Prescription Sig Dispense Quantity Refills Last Filled Start Date End Date Amoxicill-Clarithr o-Lansopraz (PREVPAC) 500-500-30 mg combo packIndications:GE RD (gastroesophageal reflux disease),Gastritis ,H. pylori infection Follow package directions. 1 Each 0 02/26/2013 3 documented in this encounter Progress Notes * Patrice Lombardi V, DO - 02/26/2013 8:05 AM EDT Subjective: Patient ID: Alyssa Jamil is a 57 y.o. female. Chief Complaint Patient presents with ??? Abdominal Pain symptoms x2 months gradually worsening sharp burning with nausea finished prevpac and taking prilosec with no relief had upper and lower gi ??? Dizziness headache x1 week HPI GERD - Pt reports that symptoms are well controlled with current medications. She is compliant withmedications. She is compliant with lifestyle recommendations. patinet still having dark stools occastionlly .. And is dizzy.. No nvd no fevers.. Patients past medical, family and social histories were reviewed and updated. There were no changesexcept as noted. Review of Systems Constitutional: Negative. Eyes: Negative. Respiratory: Negative. Negative for shortness of breath. Cardiovascular: Negative. Negative for chest pain. Gastrointestinal: Positive for nausea and abdominal pain. Negative for vomiting, diarrhea and constipation. Endocrine: Negative. Genitourinary: Negative. Neurological: Positive for dizziness and headaches. Objective: Filed Vitals: 02/26/13 0803 BP: 118/80 Pulse: 68 Temp: 97.8 ??F (36.6 ??C) TempSrc: Oral Resp: 20 Height: 5' 4 (1.626 m) Weight: 280 lb (127.007 kg) Body mass index is 48.04 kg/(m^2). Physical Exam Vitals reviewed. Constitutional: She [...] are normal. Musculoskeletal: Normal range of motion. She exhibits tenderness. Right lower leg: She exhibits tenderness. Left lower leg: She exhibits tenderness. Neurological: She is alert and oriented to person, place, and time. Skin: Skin is warm. Assessment and Plan: Alyssa was seen today for abdominal pain and dizziness. Diagnoses and associated orders for this visit: GERD (gastroesophageal reflux disease) - Wcsfujnsd-Ijrbnxsky-Yefiseczy (PREVPAC) 500-500-30 mg combo pack; Follow package directions. - Venipuncture - CBC with Auto Diff - Clinic Collect; Future Gastritis - Ufxqybxir-Ejuuwtovw-Ioeylfzdv (PREVPAC) 500-500-30 mg combo pack; Follow package directions. - Venipuncture - CBC with Auto Diff - Clinic Collect; Future H. pylori infection - Amnxuvsns-Uyodnqorc-Hridbgasi (PREVPAC) 500-500-30 mg combo pack; Follow package directions. Chest pain - Cancel: Cardiology - Cardiology Calf pain - Venipuncture - CBC with Auto Diff - Clinic Collect; Future - D-Dimer - Clinic Collect; Future Ankle pain - X-ray ankle left AP and lateral; Future No Follow-up on file. documented in this encounter Miscellaneous Notes * Addendum Note - Caitlin Sauer MA - 02/26/2013 8:31 AM EDTAddended by: BRISEYDA MENSAH on: 02/26/2013 08:31 AM Modules accepted: Orders * Patient Instructions - Luiza Espinoza MA - 02/26/2013 8:06 AM EDT Images from the original note were not included. Abdominal Pain Abdominal (belly) pain can be caused by many things. Your caregiver decides the seriousness of yourpain by an examination and possibly blood tests and x-rays. Many cases can be observed and treated at home. Most abdominal pain in children is functional. This means it is not caused by a disease andwill probably improve without treatment. However, in many cases, more time must pass before a clear cause of the pain can be found. Before that point, it may not be known if you need more testing, orif hospitalization or surgery is needed. HOME CARE INSTRUCTIONS: ?? Do not take or give laxatives unless directed by your caregiver. ?? Take pain medication only if ordered by your caregiver. ?? Only take raxi-yrm-nrpttmn or prescription medicines for pain, discomfort or fever as directed by your caregiver. ?? Try a clear liquid diet - broth, tea, or water as ordered by your caregiver. Slowly move to a bland diet as tolerated. SEEK IMMEDIATE MEDICAL ATTENTION IF: ?? The pain does not go away. ?? An oral temperature above 102?? F (38.9?? C) develops or as directed by your caregiver. ?? Repeated vomiting occurs. ?? The pain is felt only in portions of the abdomen. The right side could possibly be appendicitis.In an adult, the left lower portion of the abdomen could be colitis or diverticulitis. ?? Blood is being passed in stools (bright red or black tarry stools). MAKE SURE YOU: ?? Understand these instructions. ?? Will watch your condition. ?? Will get help right away if you are not doing well or get worse. Document Released: 08/25/2006 Document Re-Released: 11/21/2009 ExitCare?? Patient Information ??2009 [employer]. documented in this encounter Plan of Treatment Upcoming Encounters Date Type Department Care Team (Late st Contact Info) Description 07/29/2024 9:00 AM EST Appointment [facility] [address] [place] [address] Jomar Kim MD [address] [place], [place] [id number] Scheduled Orders Name Type Priority Associated Diagnoses Orde r Schedule D-DIMER Lab Routine Chest pain Calf pain Ankle pain 1 Occurrences starting 02/26/2013 until 08/28/2013 Scheduled Referrals Name Type Priority Associated Diagnoses Order Schedule AMB REFERRAL TO CARDIOLOGY Outpatient Referral Routine Chest pain Ordered: 02/26/2013 documented as of this encounter Visit Diagnoses Diagnosis GERD (gastroesophageal reflux disease)- Primary Esophageal reflux Gastritis Unspecified gastritis and gastroduodenitis without mention of hemorrhage H. pylori infection Helicobacter pylori (H. pylori) Chest pain Chest pain, unspecified Calf pain Pain in limb Ankle pain Pain in joint, ankle and foot documented in this encounter Discontinued Medications Medication Sig Discontinue Reason Start Date End Da te Ivmovvfih-Ojlagoiae-Cbqs opraz (PREVPAC) 500-500-30 mg combo pack Follow package directions. 02/24/2013 02/26/2013 documented as of this encounter Care Teams Floor Director Relationship Specialty Start Date End Date Patrice Lombardi DO [address] [place] [phone] PCP - General Family Medicine 08/10/12 04/24/14 Garett Holt MD [address] [place] [phone] Internal Medicine-Gastroenterology 12/22/12 documented as of this encounter
--- OUTSIDE RECORDS SUMMARY | 2024-07-22 16:19 | XMS_ITS | Encounter Summary ---
Author Organization [facility] [address] Care Team Providers Care Fast Food Attendant Name Role Phone Harjit Orellana DO, Viral Primary Care Provider [phone] Garett Holt MD Unavailable [phone] Encounter Details Date Type Department Care Team (Latest Contact Info) Description 03/12/2013 9:21 AM EDT - 03/12/2013 11:59 PM EDT Hospital Encounter [facility] [address] [place] [address] Ankle pain Discharge Disposition: Home or Self Care [...] 9:00 AM EST Appointment [facility] [address] [place] [address] Jomar Kim MD [address] [place] [id number] documented as of this encounter Procedures Procedure Name Priority Date/Time Associated Diagnosis Comments XR ANKLE LEFT AP LATERAL AND OBLIQUE Routine 03/12/2013 9:32 AM EDT Ankle pain documented in this encounter Results * XR ANKLE LEFT AP LATERAL AND OBLIQUE (03/12/2013 9:32 AM EDT) Anatomical Region Laterality Modality Ankle Radiographic Faby ging 03/12/2013 Impressions 03/12/2013 10:06 AM EDT IMPRESSION: 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 No fracture or dislocation. Narrative 03/12/2013 10:06 AM EDT Left ankle 3 views INDICATION: Pain. Procedure Note Perry Spievy MD - 03/12/2013 Left ankle 3 views INDICATION: Pain. 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 No fracture ordislocation. Patrice Orellana DO IMG DIAGNOSTIC IMAGING ORDERAB LES Final Result documented in this encounter Visit Diagnoses Diagnosis Ankle pain Pain in joint, ankle and foot documented in this encounter Care Teams Fast Food Attendant Relationship Specialty Start Date End Date Patrice Lombardi DO [address] [place] [address] PCP - General Family Medicine 08/10/12 04/24/14 Garett Holt MD [address] [place] [phone] Internal Medicine-Gastroenterology 12/22/12 documented as of this encounter
--- OUTSIDE RECORDS SUMMARY | 2024-07-22 16:19 | XMS_ITS | Encounter Summary ---
Author Organization [place] [address] Care Team Providers Care Road Consultant Name Role Phone Harjit Orellana DO, Viral Primary Care Provider [phone] Garett Holt MD Unavailable [phone] Encounter Details Date Type Department Care Team (Latest Contact Info) Description 01/06/2013 10:45 AM EDT - 01/06/2013 11:59 PM EDT Hospital Encounter [facility] [address] [place], [place] [id number] Patrice Lombardi V, DO [address] [place] [phone] Epigastric pain (Primary Dx); Esophageal reflux Discharge Disposition: Home or Self Care Social [...] this encounter Medications at Time of Discharge meloxicam (MOBIC) 15 mg tablet Take 1 Tab by mouth daily. 90 Tab 1 01/06/2013 02/17/2013 documented as of this encounter Discharge Disposition Disposition Code Departure Means Destination Home or Self Care documented in this encounter Miscellaneous Notes * Miscellaneous - Unknown, Unknown - 01/06/2013 1:03 PM EDT documented in this encounter Plan of Treatment Upcoming Encounters Date Type Department Care Team (Late st Contact Info) Description 07/29/2024 9:00 AM EST Appointment [facility] [address] [place] [address] Jomar Kim MD [address] [place] [address] Scheduled Orders Name Type Priority Associated Diagnoses Orde r Schedule OP VENIPUNCTURE CHARGE Lab Timed Epigastric pain Esophageal reflux One Time for 1 Occurrences starting 01/06/2013 until 01/06/2013 OP VENIPUNCTURE CHARGE Lab Timed Epigastric pain Esophageal reflux One Time for 1 Occurrences starting 01/06/2013 until 01/06/2013 documented as of this encounter Procedures Procedure Name Priority Date/Time Associated Diagnosis Comments DIFFERENTIAL Routine 01/06/2013 11:28 AM EDT CBC WITH DIFF Routine 01/06/2013 11:28 AM EDT Epigastric pain Esophageal reflux documented in this encounter Results * DIFFERENTIAL (01/06/2013 11:28 AM EDT) Neut Percent 67.0 % [facility] Lymph Percent 21.2 % [facility] [place] Percent 9.5 % [facility] Eos Percent 2.0 % [facility] Baso Percent 0.3 % [facility] Neut# 7.1 1.8 - 7.7 x10(3)/mcL [facility] Lymph# 2.2 1.0 - 4.8 x10(3)/mcL [facility] [place]# 1.0 0.0 - 1.3 x10(3)/mcL [facility] Eos# 0.2 0.1 - 0.5 x10(3)/mcL [facility] Baso# 0.0 0.0 - 0.2 x10(3)/[facility] Blood specimen (specimen) 01/06/2013 11:28 AM EDT 01/06/2013 11:29 AM EDT us Viral Lombardi V, DO HEMATOLOGY ORDERABLES Final Re sult Performing Organization Address City/[facility]/ZIP Co de Phone Number [facility] [address] [place] [address] * (ABNORMAL) CBC WITH AUTO DIFF (01/06/2013 11:28 AM EDT) [facility] WBC 10.6 4.0 - 11.0 x10(3)/[facility] RBC 4.40 4.00 - 5.10 x10(6)/[facility] Hgb 12.1 12.0 - 15.7 gm/dL [facility] Hct 37.3 36.0 - 45.9 % [facility] MCV 84.7 80.0 - 95.8 fL [facility] MCH 27.5 27.0 - 33.2 pg [facility] MCHC 32.5(L) 33.0 - 36.0 gm/dL [facility] RDW 15.3(H) 11.5 - 14.5 % [facility] Platelet 284 150 - 400 x10(3)/[facility] MPV 8.1 7.0 - 12.0 fL [facility] Blood specimen (specimen) UPPER LIMB STRUCTURE / Unknown 01/06/2013 11:28 AM EDT 01/06/2013 11:29 AM EDT us Viral Lombardi V, DO HEMATOLOGY ORDERABLES Final Re sult Performing Organization Address [facility]/ZIP Co de Phone Number [facility] [address] [place] [address] documented in this encounter Visit Diagnoses Diagnosis Epigastric pain- Primary Abdominal pain, epigastric Esophageal reflux documented in this encounter Care Teams Road Consultant Relationship Specialty Start Date End Date Patrice Lombardi V DO [address] [place] [phone] PCP - General Family Medicine 08/10/12 04/24/14 Garett Holt MD [address] [place] [phone] Internal Medicine-Gastroenterology 12/22/12 documented as of this encounter
--- OUTSIDE RECORDS SUMMARY | 2024-07-22 16:19 | XMS_ITS | Encounter Summary ---
Author Organization [place] [address] Care Team Providers Care Roller Embosser Name Role Phone Harjit Orellana DO, Viral Primary Care Provider [phone] Garett Holt MD Unavailable [phone] Reason for Visit * Reason Onset Date Comments Results 06/10/2013 Encounter Details Date Type Department Care Team (Late st Contact Info) Description 06/10/2013 Telephone [facility] [address] [place] [address] Patrice Lombardi DO [address] [place] [address] Results Social History Tobacco Use Types Packs/Day [...] encounter Miscellaneous Notes * Telephone Encounter - Patrice Lombardi DO - 06/10/2013 2:06 PM EDT Already resulted * Telephone Encounter - Janene Alejo Eloy - 06/10/2013 1:46 PM EDT Please result patients MRI dated 06/07/13 so the patient can be notified documented in this encounter Plan of Treatment Upcoming Encounters Date Type Department Care Team (Late st Contact Info) Description 07/29/2024 9:00 AM EST Appointment [facility] [address] [place] [address] Jomar Kim MD [address] [place] [address] documented as of this encounter Visit Diagnoses Not on filedocumented in this encounter Care Teams Roller Embosser Relationship Specialty Start Date End Date Patrice Lombardi DO [address] [place] [address] PCP - General Family Medicine 08/10/12 04/24/14 Garett Holt MD [address] [place] [address] Internal Medicine-Gastroenterology 12/22/12 documented as of this encounter
--- OUTSIDE RECORDS SUMMARY | 2024-07-22 16:19 | XMS_ITS | Encounter Summary ---
Author Organization [place] [address] Care Team Providers Care Ticket Printer And Tagger Name Role Phone Harjit Orellana DO, Viral Primary Care Provider [phone] Garett Holt MD Unavailable [phone] Reason for Visit * Reason Onset Date Comments Other 01/14/2013 Encounter Details Date Type Department Care Team (Late st Contact Info) Description 01/14/2013 Telephone [facility] [address] [place] [address] Wendy Espinoza LPN [address] [place] [address] Other Social History Tobacco Use [...] Telephone Encounter - Wendy Espinoza LPN - 01/21/2013 5:38 PM EDT other documented in this encounter Plan of Treatment Upcoming Encounters Date Type Department Care Team (Late st Contact Info) Description 07/29/2024 9:00 AM EST Appointment [facility] [address] [place] [address] Jomar Kim MD [address] [place] [address] documented as of this encounter Visit Diagnoses Not on filedocumented in this encounter Care Teams Ticket Printer And Tagger Relationship Specialty Start Date End Date Patrice Lombardi DO [address] [place] [address] PCP - General Family Medicine 08/10/12 04/24/14 Garett Holt MD [address] [place] [address] Internal Medicine-Gastroenterology 12/22/12 documented as of this encounter
--- OUTSIDE RECORDS SUMMARY | 2024-07-22 16:19 | XMS_ITS | Encounter Summary ---
Author [place] [address] Care Team Providers Care Pecan Sheller Name Role Phone Harjit Orellana DO, Viral Primary Care Provider [phone] Garett Holt MD Unavailable [phone] Reason for Referral * Ultrasound (Routine) - Closed Specialty Diagnoses / Procedures Referred By Ron bansal Referred To Contact Radiology Diagnoses Hematuria Dysuria CPT 96024 Procedures US RENAL AND BLADDER scheduling request sent to [facility] Leila Mendoza DO [address] [place] [id number] Phone: tel: fax: [facility] [place] [address] Phone: tel: fax: Referral ID Status Reason Start Date Expiration Date Visits Re quested Visits Authorized [id number] Closed 05/13/2013 11/09/2013 1 1 Reason for Visit * Reason Comments Back Pain lower back x 1 week Leg Pain RT leg, lower leg pa in, x 4 days Arm Pain RT Shoulder radiates to upper arm, x 4 days Hematuria comes and goes x mnt hs Diabetes borderline DM // rec heck ((not fasting)) Abdominal Pain cramping after eatin g x mths Encounter Details Date Type Department Care Team (Late st Contact Info) Description 05/13/2013 10:30 AM EDT Office Visit [facility] [address] [place] [address] Leila Lombardi V, DO [address] [place] [address] Hematuria (Primary Dx); Hyperglycemia; Lumbar strain; Back pain; Dysuria; Muscle spasm Social History Tobacco Use Types Packs/Day Years [...] Reading Time Taken Comments Blood Pressure 140/80 05/13/2013 8:14 AM EDT Pulse 68 05/13/2013 8:14 AM EDT Temperature 36.5 ??C (97.7 ??F) 05/13/2013 8:14 AM ED T Respiratory Rate 16 05/13/2013 8:14 AM EDT Oxygen Saturation - - Inhaled Oxygen Concentration - - Weight 128.4 kg (283 lb) 05/13/2013 8:14 AM EDT Height 162.6 cm (5' 4 ) 05/13/2013 8:14 AM EDT Body Mass Index 48.58 05/13/2013 8:14 AM EDT documented in this encounter Ordered Prescriptions Prescription Sig Dispense Quantity Refills Last Filled Start Date End Date cyclobenzaprine (FLEXERIL) 5 mg tabletIndications: Lumbar strain,Back pain,Muscle spasm Take 1 Tab by mouth every 8 hours as needed for Muscle spasms for 10 days. 30 Tab 1 05/13/2013 05/23/2013 cephALEXin (KEFLEX) 500 mg capsuleIndications :Hematuria,Dysuria Take 1 Cap by mouth every 8 hours for 10 days. 30 Cap 0 05/13/2013 05/23/2013 documented in this encounter Progress Notes * Harjit Viral V, DO - 05/13/2013 8:15 AM EDT Subjective: Patient ID: Alyssa Jamil is a 58 y.o. female. Chief Complaint Patient presents with ??? Back Pain lower back x 1 week ??? Leg Pain RT leg, lower leg pain, x 4 days ??? Arm Pain RT Shoulder radiates to upper arm, x 4 days ??? Hematuria comes and goes x mnths ??? Diabetes borderline DM // recheck ((not fasting)) ??? Abdominal Pain cramping after eating x mths DM type 2- Pt reports sugars have been running well. Home reporting of sugars was reviewed at time of visit. Medications have been working well without complications. Pt denies any episodes of hypo or hyperglycemia. BGs consistently in an acceptable range. Patient reports no new symptoms of possible diabetes sequelae. Pt does not have diabetic neuropathy. Pt does not have diabetic nephropathy. Ptdoes not have diabetic retinopathy. Last eye exam was . For review of AF4Q measures 1) Lab Results Component Value Date HGBA1C 6.0 10/20/2012 (goal is <8) 2) BP Readings from Last 1 Encounters: 05/13/13 140/80 (goal is less than 140/90) 3) No results found for this basename: LDLCALC (goal is less than 100) 4) Patient does have aspirin listed on medication list. If not, encouraged to start taking and if taking, added to med list. 5) Patient does not use tobacco. If so - she was not counseled on cessation. Results for orders placed in visit on 05/13/13 POCT URINALYSIS AUTOMATED Result Value Range Color, UA Clarity, UA Glucose, UA - Bilirubin, UA - Ketones, UA - Spec Grav, UA 1.015 1.001 - 1.035 g/dl Blood, UA - pH, UA 7 5.0 - 8 Protein, UA - Urobilinogen, UA normal 0.2 - 1.0 mg/dL Leukocytes, UA - Nitrite, UA - Appear BF Clear, Slightly Cloudy Clear, Cloudy Lot Number Expiration Date SeriAl # POCT MICROALBUMIN Result Value Range Microalb, Ur negative 20 mg/L Lot Number Expiration Date SeriAl # HPI Hyperlipidemia - Pt has done well since last ov. No complaints of side effects from medication. Diet has been reviewed with patient. Last cholesterol and liver panel has been reviewed. Current cholesterol goals discussed with patient. Lab Results Component Value Date HDL 58 03/25/2013 No results found for this basename: LDLCALC Lab Results Component Value Date TRIG 95 03/25/2013 Lab Results Component Value Date ALT 15 03/25/2013 AST 20 03/25/2013 Patients past medical, family and social histories were reviewed and updated. There were no changesexcept as noted. Review of Systems Respiratory: Negative for chest tightness and shortness of breath. Cardiovascular: Negative for chest pain and leg swelling. Gastrointestinal: Positive for nausea and abdominal pain. Negative for vomiting and diarrhea. Genitourinary: Positive for dysuria, frequency, hematuria, flank pain and difficulty urinating. Musculoskeletal: Positive for myalgias and back pain. RT upper arm/shoulder pain Left lower leg pain Objective: Filed Vitals: 05/13/13 0814 BP: 140/80 Pulse: 68 Temp: 97.7 ??F (36.5 ??C) TempSrc: Oral Resp: 16 Height: 5' 4 (1.626 m) Weight: 283 lb (128.368 kg) Body mass index is 48.55 kg/(m^2). [...] and Plan: Alyssa was seen today for back pain, leg pain, arm pain, hematuria, diabetes and abdominal pain. Diagnoses and associated orders for this visit: Hematuria - Cancel: POCT microalbumin - POCT urinalysis dipstick automated - CBC with Auto Diff - Lab Collect; Future - Ultrasound renal and bladder; Future - cephALEXin (KEFLEX) 500 mg capsule; Take 1 Cap by mouth every 8 hours for 10 days. Hyperglycemia - POCT Microalbumin - Lipid Panel Reflex - Lab Collect; Future - Basic Metabolic Panel - Lab Collect; Future - Hemoglobin A1c - Lab Collect; Future - TSH Reflex - Lab Collect; Future - CBC with Auto Diff - Lab Collect; Future Lumbar strain - X-ray thoracic spine AP and lateral; Future - X-ray lumbar spine AP and lateral; Future - cyclobenzaprine (FLEXERIL) 5 mg tablet; Take 1 Tab by mouth every 8 hours as needed for Muscle spasms for 10 days. Back pain - X-ray thoracic spine AP and lateral; Future - X-ray lumbar spine AP and lateral; Future - cyclobenzaprine (FLEXERIL) 5 mg tablet; Take 1 Tab by mouth every 8 hours as needed for Muscle spasms for 10 days. Dysuria - Ultrasound renal and bladder; Future - cephALEXin (KEFLEX) 500 mg capsule; Take 1 Cap by mouth every 8 hours for 10 days. Muscle spasm - cyclobenzaprine (FLEXERIL) 5 mg tablet; Take 1 Tab by mouth every 8 hours as needed for Muscle spasms for 10 days. Other Orders - Cancel: Referral to Ophthalmology No Follow-up on file. documented in this encounter Miscellaneous Notes * Addendum Note - Leila Lombardi DO - 05/13/2013 8:34 AM EDTAddended by: LEILA LOMBARDI V on: 05/13/2013 08:34 AM Modules accepted: Orders * Patient Instructions - Marco Antonio Herman MA - 05/13/2013 8:14 AM EDT Hematuria Hematuria is the presence of blood in the urine. This condition can result from many problems. Someof these are: ?? Urinary infections. ?? Injuries. ?? Kidney stones. ?? Drug reactions. ?? Tumors. ?? Other diseases. The treatment depends on the diagnosis. Further studies may be needed to find the cause even if thehematuria subsides on its own. An exam by an urologist may also be indicated. If you are bleeding heavily, or have prostate problems, clots can form in the bladder and block thepassage of urine. This requires emergency treatment with a catheter and bladder irrigation. Contact your doctor for follow-up care within the next 2-4 days. SEEK IMMEDIATE MEDICAL CARE IF: ?? You develop a fever, abdominal pain, urinary blockage, vomiting, or any other serious problems. Document Released: 10/02/2005 Document Re-Released: 08/07/2009 ExitCare?? Patient Information ??2009 [email or web address] documented in this encounter Plan of Treatment Upcoming Encounters Date Type Department Care Team (Late st Contact Info) Description 07/29/2024 9:00 AM EST Appointment [facility] [address] [place] [address] Jomar Kim MD [address] [place] [address] Scheduled Orders Name Type Priority Associated Diagnoses Orde r Schedule LIPID PANEL REFLEX Lab Routine Hyperglycemia 1 Occurrences starting 05/13/2013 until 11/10/2013 BASIC METABOLIC PANEL Lab Routine Hyperglycemia 1 Occurrences starting 05/13/2013 until 11/10/2013 TSH REFLEX Lab Routine Hyperglycemia 1 Occurrences starting 05/13/2013 until 11/10/2013 documented as of this encounter Procedures Procedure Name Priority Date/Time Associated Diagnosis Comments POCT MICROALBUMIN Routine 05/13/2013 8:2 3 AM EDT Hyperglycemia POCT URINALYSIS AUTOMATED Routine 05/13/2013 8:22 AM EDT Hematuria documented in this encounter Results * US RENAL AND BLADDER (05/20/2013 2:03 PM EDT) Anatomical Region Laterality Modality Abdomen, Pelvis Ultrasound 05/20/2013 Impressions 05/20/2013 2:58 PM EDT IMPRESSION: Normal Narrative 05/20/2013 2:58 PM EDT Renal ultrasound INDICATION: Hematuria. FINDINGS: The right kidney measures 12.6 cm. No focal lesions. No dilatation. The left kidney measures 12.1 cm. No focal lesions. The retroperitoneum and bladder are unremarkable. Procedure Note Perry Spivey MD - 05/20/2013 Renal ultrasound INDICATION: Hematuria. FINDINGS: The right kidney measures 12.6 cm. No focal lesions. No dilatation. Theleft kidney measures 12.1 cm. No focal lesions. The retroperitoneum and bladder areunremarkable. IMPRESSION: Normal us Viral Lombardi V, DO IMG US ORDERABLES Final Result * XR LUMBAR SPINE AP AND LATERAL (05/17/2013 9:17 AM EDT) Anatomical Region Laterality Modality L-spine Radiographic Faby ging 05/17/2013 Impressions 05/17/2013 1:43 PM EDT IMPRESSION: 1. Continued visualization lumbar degenerative change. Narrative 05/17/2013 1:43 PM EDT XR LUMBAR SPINE AP AND LATERAL ??May 17, 2013 09:18:02 AM HISTORY: ??Back pain. COMPARISON: July 05, 2011. Intervertebral narrowing L3-L4 and L4-L5 are stable. Facet hypertrophic changes are again noted. No lytic lesion or fracture. Procedure Note Stone Craig MD - 05/17/2013 XR LUMBAR SPINE AP AND LATERAL May 17, 2013 09:18:02 AM HISTORY: Back pain. COMPARISON: July 05, 2011. Intervertebral narrowing L3-L4 and L4-L5 are stable. Facet hypertrophicchanges are again noted. No lytic lesion or fracture. IMPRESSION: 1. Continued visualization lumbar degenerative change. us Viral Lombardi V, DO IMG DIAGNOSTIC IMAGING ORDERAB LES Final Result * POCT MICROALBUMIN (05/13/2013 8:23 AM EDT) Microalb, Ur negative <=20 mg/L SEP OFFICE Lot Number SEP OFFICE Expiration Date SEP OFFICE SeriAl # SEP OFFICE Urine specimen (specimen) 05/13/2013 8:23 AM EDT us Viral Lombardi V, DO POINT OF CARE TEST ORDERABLES Final Result SEP OFFICE * POCT URINALYSIS AUTOMATED (05/13/2013 8:22 AM EDT) Color, UA Clear, Yellow, [place], Rust [facility] Clarity, UA Clear, Cloudy [facility] Glucose, UA - g/dl% [facility] Bilirubin, UA - Pos/Neg [facility] Ketones, UA - Pos/Neg [facility] [employer] ho[employer]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 Grav, UA 1.015 1.001 - 1.035 g/dl [facility] Blood, UA - Pos/Neg [facility] pH, UA 7 5.0 - 8 [facility] Protein, UA - Pos/Neg [facility] Urobilinogen, UA normal 0.2 - 1.0 mg/dL SE[facility] Leukocytes, UA - Pos/Neg [facility] Nitrite, UA - Pos/Neg [facility]P [facility] Appear BF Clear, Slightly Cloudy Clear, Cloudy SEP OFF[facility] Lot Number SEP OFFICE Expiration Date SEP OFFICE SeriAl # SEP OFFICE Urine specimen (specimen) 05/13/2013 8:22 AM EDT us Viral Lombardi V, DO POINT OF CARE TEST ORDERABLES Final Result Performing Organization Address [facility] Co de Phone Number [facility] documented in this encounter Visit Diagnoses Diagnosis Hematuria- Primary Hematuria, unspecified Hyperglycemia Other abnormal glucose Lumbar strain Sprain of lumbar region Back pain Backache, unspecified Dysuria Muscle spasm Spasm of muscle Lumbar strain Sprain of lumbar region Back pain Backache, unspecified Hematuria Hematuria, unspecified Dysuria documented in this encounter Care Teams Pecan Sheller Relationship Specialty Start Date End Date Leila Lombardi DO [address] [place] [phone] PCP - General Family Medicine 08/10/12 04/24/14 Garett Holt MD [address] [place] [phone] Internal Medicine-Gastroenterology 12/22/12 documented as of this encounter
--- OUTSIDE RECORDS SUMMARY | 2024-07-22 16:19 | XMS_ITS | Encounter Summary ---
Author Organization [place] [address] Care Team Providers Care Metrology Specialist Name Role Phone Harjit Orellana DO, Viral Primary Care Provider [phone] Garett Holt MD Unavailable Reason for Visit * Reason Onset Date Comments Medication Management 01/14/2013 change Nif erex 150 forte Encounter Details Date Type Department Care Team (Late st Contact Info) Description 01/14/2013 Telephone [facility] [address] [place] [address] Mario Neil MD [address] [place] [phone] Medication Management (change Niferex 150 forte) Social History Tobacco Use Types Packs/Day Years [...] encounter Miscellaneous Notes * Telephone Encounter - Suzanna Mcmillan - 01/14/2013 8:49 AM EDT [employer] requesting change from non formulary Niferex Forte to Ferrex 150 cap Rx changed and faxed to [phone] documented in this encounter Plan of Treatment Upcoming Encounters Date Type Department Care Team (Late st Contact Info) Description 07/29/2024 9:00 AM EST Appointment [facility] [address] [place] [address] Jomar Kim MD [address] [place] [address] documented as of this encounter Visit Diagnoses Not on filedocumented in this encounter Care Teams Metrology Specialist Relationship Specialty Start Date End Date Patrice Lombardi V, DO [address] [place] [address] PCP - General Family Medicine 08/10/12 04/24/14 Garett Holt MD [address] [place] [address] Internal Medicine-Gastroenterology 12/22/12 documented as of this encounter
--- OUTSIDE RECORDS SUMMARY | 2024-07-22 16:19 | XMS_ITS | Encounter Summary ---
Author Organization [place] [address] Care Team Providers Care Director General Name Role Phone Harjit Orellana DO, Viral Primary Care Provider [phone] Garett Holt MD Unavailable [phone] Reason for Visit * Auth/Cert/Inpt - Closed Specialty Diagnoses / Procedures Referred By Ron bansal Referred To Contact Diagnoses Esophageal reflux Anemia, unspecified Dysphagia, unspecified(787.20) Esophageal reflux [530.81]Anemia, unspecified [285.9]Dysphagia, unspecified [787.20] Procedures ESOPHAGOGASTRODUODENOSCOPY / COLONOSCOPY [facility] [address] [place] [address] Phone: tel: fax: Referral ID Status Reason Start Date Expiration Date Visits Re quested Visits Authorized [id number] Closed 02/17/2013 08/16/2013 1 1 Encounter Details Date Type Department Care Team (Latest Contact Info) Description 02/17/2013 6:01 AM EDT - 02/17/2013 11:40 AM EDT Hospital Encounter [facility] [address] [place] [address] Garett Holt MD [address] [place] [address] Dysphagia (Primary Dx); Encounter for screening colonoscopy Discharge Disposition: Home or Self Care Social [...] Sign Reading Time Taken Comments Blood Pressure 144/71 02/17/2013 11:01 AM EDT Pulse 50 02/17/2013 10:45 AM EDT Temperature 36.4 ??C (97.6 ??F) 02/17/2013 6:38 AM ED T Respiratory Rate 16 02/17/2013 11:01 AM EDT Oxygen Saturation 97% 02/17/2013 10:45 AM EDT Inhaled Oxygen Concentration - - Weight 123.8 kg (273 lb) 02/12/2013 10:54 AM EDT Height 162.6 cm (5' 4 ) 02/12/2013 10:54 AM EDT Body Mass Index 46.86 02/12/2013 10:54 AM EDT documented in this encounter Discharge Instructions * Discharge Instructions* Samina Sanchez, RNA - 02/17/2013 10:33 AM EDT [facility] Discharge Instructions - Following Endoscopy 1. [...] Call the physician???s office for a follow-up visit. 8. Patient discharged to the care of ADDITIONAL INSTRUCTIONS: Call Dr. Holt at [phone] if the following occurs: Colonoscopy: Severe abdominal pains and swelling (mild abdominal cramps and gas pains can be expected), nausea and vomiting, rectal bleeding (with biopsy or polyps a small amount of blood can be expected), body temp. over 101 degrees, chills. EGD: Abdominal pains, cramps, swelling, chest pains, difficulty in swallowing, chills, coughing blood, severe sore throat, or body temp. over 101 degrees. documented in this encounter Discharge Disposition Disposition Code Departure Means Destination Home or Self Residential documented in this encounter H&P Notes * Garett Holt MD - 02/17/2013 9:[address] [facility] Gastroenterology Outpatient Preprocedure H/P Primary Care Physician: Patrice Lombardi DO History and Physical Chief Complaint: Colorectal cancer screening. Dysphagia. GERD. Anemia Pre-Op Diagnosis: As above Plan/Procedure: EGD/Colonoscopy History of Presenting Illness Alyssa Campos is a(n) 57 y.o. female with multiple GI problems including reflux symptoms,dysphagia, CRC screening and chronic anemia. Patient notes worsening dysphagia to solid foods. She is not sure if its because she has poor dentition or because something is stuck inside. However she denies any hx of food impaction, but has to chew for long periods and drink lots fluid to flush fooddown. Also notes long history fo reflux symptoms, with acid regurgitation. She takes prilosec whichhelps the symptoms somewhat. Also takes NSAIDs to ameliorate her arthralgia symptoms. She was recently told that she was anemic based on routine labs test. FOBT was done, results were negative. She bruce s een started on Fe supplementation, and has noted her stools are dark now. No prior hx of colonoscopy or fmh of colon polyp or cancer. She describes occasional episodes of bloating and periumbilicalcramps soon after meals. She was still drinking her prep at 7.15am this am, at time I arrived to do her procedure. She states that the GI office instructed her to drink her prep at 6am this am. Prior Endoscopies: nil PMSH: Past Medical History Diagnosis Date ??? Shortness of breath ??? Asthma ??? Other and unspecified angina pectoris ??? Heartburn nausea after eating ??? Ulcer ??? Arthritis all over ??? 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 Diabetes mellitus borderline ??? Anemia on iron Past Surgical History Procedure Laterality Date ??? Cholecystectomy ??? Colonoscopy ??? Upper gastrointestinal endoscopy Medications Current facility-administered medications:metoclopramide HCl (REGLAN) injection 10 mg, 10 mg, Intravenous, Once PRN, Shantelwu, Garett Nina MD Allergy: Allergies Allergen Reactions ??? No Known Allergies FMH: Family History Problem Relation Age of Onset ??? Heart Disease Father Social History: History Social History ??? Marital Status: Spouse [...] History Narrative ??? No narrative on file Physical Examination BP 127/75 Pulse 68 Temp(Src) 97.6 ??F (36.4 ??C) (Temporal) Resp 20 Ht 5' 4 (1.626 m) Wt273 lb (123.832 kg) BMI 46.84 kg/m2 SpO2 96% ?? General: alert, well developed, well nourished, in no acute distress ?? HEENT: Not pale, anicteric, normal, mucous membranes moist ?? Lungs: Good air movts, clear to auscultation bilaterally ?? Cardiac: RRR. S1 S2 normal. ?? Abdomen: soft, obese, nontender, BS normoactive ?? Ext: No cyanosis, clubbing or edema ?? Neurological: No cranial nerve deficits. No asterixis Last Oral Intake: Yesterday Previous Anesthesia Reaction: no Comment: Pre-Procedure Assessment: Risks, benefits, potential complications and alternatives discussed with the patients legally authorized commercial representative. The patient's pre-procedure physical assessment indicates that the patient is suitable candidate for and agrees to the planned sedation and procedure. Cardiovascular and Vital signs Stable: yes Adequate/Patient Oral Airway yes I have reviewed the H&P and examined the patient Assessment/Plan: A 57yo CAF with dysphagia, GERD, Anemia and here for colorectal cancer screening -- Proceed with EGD/Colonoscopy Physician Signature: Garett Holt MD Date:02/17/2013 Time:9:34 AM documented in this encounter Nursing Notes * Isabel Dinero, RN - 02/17/2013 7:[address] Gallardo moved patient to [facility] because pt. is still drinking prep this am. He also does not want the Reglan given. documented in this encounter Miscellaneous Notes * Miscellaneous - Unknown, Unknown - 02/23/2013 12:51 PM EDT documented in this encounter Plan of Treatment Upcoming Encounters Date Type Department Care Team (Late st Contact Info) Description 07/29/2024 9:00 AM EST Appointment [facility] [address] [place] [address] Jomar Kim MD [address] [place] [address] Scheduled Orders Name Type Priority Associated Diagnoses Order Schedule ESOPHAGOGASTRODUODENOSCOPY (EGD) Procedures Routine One Time for 1 Occurrences starting 02/17/2013 until 02/17/2013 IV SITE CARE IV Routine One Time for 1 Occurrences starting 02/17/2013 until 02/17/2013 COLONOSCOPY Procedures Routine One Time for 1 Occurrences starting 02/17/2013 until 02/17/2013 INSERT PERIPHERAL IV IV Routine One Time for 1 Occurrences starting 02/17/2013 until 02/17/2013 DISCONTINUE IV IV Routine One Time f or 1 Occurrences starting 02/17/2013 until 02/17/2013 documented as of this encounter Procedures Procedure Name Priority Date/Time Associated Diagnosis Comments PATHOLOGY TISSUE REPORT Routine 02/18/20 13 10:05 AM EDT COLONOSCOPY 02/17/2013 9:49 AM EDT Esophageal reflux Anemia, unspecified Dysphagia, unspecified ESOPHAGOGASTRODUODENOSCOPY 02/17 9:49 AM EDT Esophageal reflux Anemia, unspecified Dysphagia, unspecified [facility] EGD-COLONOSCOPY Routine 02/17/2013 7:15 AM EDT documented in this encounter Results * PATHOLOGY TISSUE REPORT (02/17/2013 10:05 AM EDT) Surgical Pathology Report ? PATIENT NAME:ALYSSA CAMPOS ?Surgical Pathology Report ? Accession Number ?Collected Date/Time ? Received Date/Time ? [id number] ? 02/17/13 10:05 EDT ?02/18/13 07:21 EDT ? Diagnosis ? Gastric antrum, biopsy: ? - H pylori positive marked chronic active gastritis. ? - Negative for dysplasia or malignancy. ? KALEB CABRAL MD ? (Electronically signed by) ? Verified: 02/18/2013 ? [facility] ? Clinical Information ? Esophageal reflux [530.81]Anemia, unspecified [285.9]Dysphagi a, unspecified ? [787.20]. ? Gastric redness ? Gross Description ? Received in formalin labeled with the patient s name and gastric ? antrum are six fragments of truong tissue ranging from less than 0.1 to 0.4 ? cm in greatest dimension. ??Entirely submitted in one cassette. /[place] ? KM /CT ? Microscopic Description ? Microscopic examination is performed and the findings corroborate the ? diagnosis. [facility] 02/17/2013 10:0 5 AM EDT us Garett Holt MD PATHOLOGY ORDERABLES Final Result [facility] [address] [place] [address] * [facility] EGD-COLONOSCOPY (02/17/2013 7:15 AM EDT) 02/17/2013 7:[address] [facility] - 02/17/2013 10:33 AM EDT Plan: Await pathology results Screening Colonoscopy in 10 years. Follow-up office visit in 2 months Continue current medication for acid suppression/ dose 30 minutes before a meal This section is an excerpt of the full report, which can be found by clicking the hyperlink. us Garett Holt MD GI PROCEDURE ORDERABLES Fin al Result [facility] [address] [place] [address] documented in this encounter Visit Diagnoses Diagnosis Dysphagia- Primary Dysphagia, unspecified Dysphagia Dysphagia, unspecified Encounter for screening colonoscopy Special screening for malignant neoplasms, colon Encounter for screening colonoscopy Special screening for malignant neoplasms, colon documented in this encounter Discontinued Medications Medication Sig Discontinue Reason Start Date End Da te meloxicam (MOBIC) 15 mg tablet Take 1 Tab by mouth daily. Stop Taking at Discharge 01/06/2013 02/17/2013 documented as of this encounter Historical Medications * This list may reflect changes made after this encounter. naproxen sodium (ANAPROX) 220 mg tablet Take 220 mg by mouth as needed. 05/24/2013 added in this encounter Active and Recently Administered Medications Times are shown in EDT. PRN Medication Order 02/15/2013 02/16/2013 02/17/2013 fentaNYL (SUBLIMAZE) 50 mcg/mL injection (CANCELED) PRN, Starting on Fri02/17/13 at 0952, Until Fri02/17/13 at 1141, Intra-op 0952 (Given - Provid er: TAVO Alford)1005 (Given - Provider: TAVO Alford)1010 (Given - Provider: TAVO Alford)1014 (Given - Provider: TAVO Alford) midazolam (VERSED) injection (CANCELED) PRN, Starting on Fri02/17/13 at 0952, Until Fri02/17/13 at 1141, Intra-op 0952 (Given - Provid er: TAVO Alford)0955 (Given - Provider: TAVO Alford)1005 (Given - Provider: TAVO Alford)1010 (Given - Provider: TAVO Alford)1014 (Given - Provider: TAVO Alford) documented in this encounter Orders Medications Ordered That Edwin ht Not Have Been Administered Count Last Ordered Date First Ordered Date fentaNYL (SUBLIMAZE) 50 mcg/mL injection 1 02/17/2013 metoclopramide HCl (REGLAN) injection 10 mg 1 02/17/2013 midazolam (VERSED) injection 1 02/17/2013 Lab Orders Without Results Count Last Ordered D ate First Ordered Date PATHOLOGY TISSUE REQUEST 1 02/17/2013 Nursing Count Last Ordered Date First Orde red Date NURSING COMMUNICATION 2 02/17/2013 VERIFY INFORMED CONSENT 2 02/17/2013 Nourishments Count Last Ordered Date First Orde red Date DIET INSTRUCTIONS TO NURSING 1 02/17/2013 Discharge Count Last Ordered Date First Orde red Date DISCHARGE PATIENT 1 02/17/2013 documented in this encounter Care Teams Director General Relationship Specialty Start Date End Date Patrice Lombardi V, DO [address] [place] [phone] PCP - General Family Medicine 08/10/12 04/24/14 Garett Holt MD [address] [place] [address] Internal Medicine-Gastroenterology 12/22/12 documented as of this encounter
--- OUTSIDE RECORDS SUMMARY | 2024-07-22 16:19 | XMS_ITS | Encounter Summary ---
Author Organization [place] [address] Care Team Providers Care Mailing Manager Name Role Phone Harjit Orellana DO, Viral Primary Care Provider [phone] Garett Holt MD Unavailable [phone] Encounter Details Date Type Department Care Team (Late st Contact Info) Description 03/25/2013 Orders Only [facility] [address] [place] [address] Ruiz Stokes MD [address] [place], [place] [id number] Social History Tobacco Use Types Packs/Day Years [...] 9:00 AM EST Appointment [facility] [address] [place], [place] [id number] Jomar Kim MD [address] [place] [address] documented as of this encounter Procedures Procedure Name Priority Date/Time Associated Diagnosis Comments LIPID PANEL-QUEST Routine 03/25/2013 7:0 2 AM EDT ASPARTATE AMINOTRANSFERASE (AST)-QUEST Routine 03/25/2013 7:02 AM EDT ALANINE AMINOTRANSFERASE (ALT)-QUEST Routine 03/25/2013 7:02 AM EDT documented in this encounter Results * ALANINE AMINOTRANSFERASE (ALT)-QUEST (03/25/2013 7:02 AM EDT) ALT 15 6 - 29 U/L [facility] 03/25/2013 7:02 AM EDT 03/25/2013 7:03 AM EDT Narrative [facility] - 03/25/2013 11:57 PM EDT FASTING Resulting Agency Comment Performing Organization Information: ?Site ID: OW ?[facility] ?Address: [address] [place] [id number] ?Director: Artemio Avila MD PhD us Ruiz Stokes MD [facility]-CHEMISTRY ORDERABLES Final Result Performing Organization Address City/State/[facility] Co de Phone Number [facility] [employer] * ASPARTATE AMINOTRANSFERASE (AST)-QUEST (03/25/2013 7:02 AM EDT) AST 20 10 - 35 U/L [facility] 03/25/2013 7:02 AM EDT 03/25/2013 7:03 AM EDT Narrative [facility] - 03/25/2013 11:57 PM EDT FASTING Resulting Agency Comment Performing Organization Information: ?Site ID: OW ?Name[facility] ?Address: [facility] [place] [address] ?Director: Artemio Avila MD PhD Ruiz Stokes MD [facility]-CHEMISTRY ORDERABLES Final Result Performing Organization Address [facility] Co de Phone Number [facility] [address] [place] [address] * (ABNORMAL) LIPID PANEL-QUEST (03/25/2013 7:02 AM EDT) Cholesterol 201(H) 125 - 200 mg/dL [facility] [place] HDL 58 > OR = 46 mg/dL [facility] [place] Triglyceride 95 <150 mg/dL [facility] [place] LDL Cholesterol 124 <130 mg/dL (calc) [facility] [place] Comment: Desirable range <100 mg/dL for patients with CHD or diabetes and <70 mg/dL for diabetic patients with known heart disease. CHOL/HDLC RATIO 3.5 < OR = 5.0 (calc) [facility] [place] Non HDL Chol. (LDL+VLDL) 143 mg/dL (calc) [facility] [place] Comment: Target for non-HDL cholesterol is 30 mg/dL higher than LDL cholesterol target. 03/25/2013 7:02 AM EDT 03/25/2013 7:03 AM EDT Narrative [facility] - 03/25/2013 11:57 PM EDT FASTING Resulting Agency Comment Performing Organization Information: ?Site ID: OW ?Name: [facility] ?Address: [facility] [place] [address] ?Director: Artemio Avila MD PhD Ruiz Stokes MD [facility]-CHEMI[facility]Y ORDERABLES Final Result Performing Organization Address City/[facility] Co de Phone Number [facility] [address] documented in this encounter Visit Diagnoses Not on filedocumented in this encounter Care Teams Mailing Manager Relationship Specialty Start Date End Date Harjit Viral V, DO [address] [place] [address] PCP - General Family Medicine 08/10/12 04/24/14 Garett Holt MD [address] [place] [address] Internal Medicine-Gastroenterology 12/22/12 documented as of this encounter
--- OUTSIDE RECORDS SUMMARY | 2024-07-22 16:19 | XMS_ITS | Encounter Summary ---
Author Organization [place] [address] Care Team Providers Care Tower Cleaner Name Role Phone Harjit Orellana DO, Viral Primary Care Provider [phone] Garett Holt MD Unavailable [phone] Reason for Visit * Reason Onset Date Comments Other 01/18/2013 faxed med change . Encounter Details Date Type Department Care Team (Late st Contact Info) Description 01/18/2013 Telephone [facility] [address] [place] [address] Mario Neil MD [address] [place] [address] Other (faxed med change. ) Social History Tobacco Use Types Packs/Day [...] Refills Last Filled Start Date End Date iron polysaccharides (FERREX 150 FORTE PLUS) 150-60-25-1 hi-dk-pmi-mg Cap Take 1 Cap by mouth daily. 90 Cap 1 01/18/2013 3 documented in this encounter Miscellaneous Notes * Telephone Encounter - Suzanna Mcmillan - 01/18/2013 11:[address] Christine changed Niferex Forte 150mg (non formulary) to Ferrex 150mg cap New Rx faxed to [facility] source at [phone] documented in this encounter Plan of Treatment Upcoming Encounters Date Type Department Care Team (Late st Contact Info) Description 07/29/2024 9:00 AM EST Appointment [facility] [address] [place] [address] Jomar Kim MD [address] [place] [address] documented as of this encounter Visit Diagnoses Not on filedocumented in this encounter Discontinued Medications Medication Sig Discontinue Reason Start Date End Da te iron polysaccharides (NIFEREX 150 FORTE) 150-60-25-1 ql-pt-klr-mg Cap Take 1 Cap by mouth daily. Replaces Niferex 150mg Forte Plus. Formulary change 01/11/2013 01/18/2013 documented as of this encounter Care Teams Tower Cleaner Relationship Specialty Start Date End Date Patrice Lombardi DO [address] [place] [phone] PCP - General Family Medicine 08/10/12 04/24/14 Garett Holt MD [address] [place] [address] Internal Medicine-Gastroenterology 12/22/12 documented as of this encounter
--- OUTSIDE RECORDS SUMMARY | 2024-07-22 16:19 | XMS_ITS | Encounter Summary ---
Author Organization [place] [address] Care Team Providers Care Inclusion Intern Name Role Phone Harjit Orellana DO, Viral Primary Care Provider Garett Holt MD Unavailable [phone] Annalise Oneill MD Primary Care Provider Kate Bai DO Primary Care Provider Unavailable Ruiz Stokes MD Unavailable [phone] Annalise Oneill MD Primary Care Provider Cristiane [place] MD Primary Care Provider [phone] Annalise Oneill MD Primary Care Provider Yenny Schwab MD Unavailable [phone] Encounter Details Date Type Department Care Team (Late st Contact Info) Description 07/02/2013 Abstract [facility] [address] [place] [address] Patrice Lombardi V, DO [address] [place] [address] Social History Tobacco Use Types [...] 9:00 AM EST Appointment [facility] [address] [place] [address] Jomar Kim MD [address] [place] [address] documented as of this [...] on filedocumented in this encounter Care Teams Inclusion Intern Relationship Specialty Start Date End Date Patrice Lombardi DO [address] [place] [phone] PCP - General Family Medicine 08/10/12 04/24/14 Annalise Oneill MD [address] [place] [phone] PCP - General Family Medicine 04/25/14 05/30/14 Kate Bai DO [address] [place] [address] PCP - General Internal Medicine 05/31/1410/02 Annalise Oneill MD [address] [place] [address] PCP - General Family Medicine 10/03/14 12/27/14 Cristiane Shirley MD [address] [place] [address] PCP - General Family Medicine 12/28/14 11/18/16 Annalise Oneill MD [address] [place] [address] PCP - General Family Medicine 11/19/16 08/19/18 Garett Holt MD [address] [place] [address] Internal Medicine-Gastroenterology 12/22/12 Ruiz Stokes MD [address] [place] [address] Internal Medicine-Cardiovascular Disease 07/25/14 Yenny Schwab MD [address] [facility] Building [address] [place] [address] Internal Medicine-Rheumatology 12/11/16 documented as of this encounter
--- OUTSIDE RECORDS SUMMARY | 2024-07-22 16:19 | XMS_ITS | Encounter Summary ---
Author Organization [place] [address] Care Team Providers Care Line Tender Name Role Phone Harjit Orellana DO, Viral Primary Care Provider [phone] Garett Holt MD Unavailable [phone] Reason for Visit * Auth/Cert/Inpt - Closed Specialty Diagnoses / Procedures Referred By Ron bansal Referred To Contact Diagnoses Esophageal reflux Anemia, unspecified Dysphagia, unspecified(787.20) Esophageal reflux [530.81]Anemia, unspecified [285.9]Dysphagia, unspecified [787.20] Procedures ESOPHAGOGASTRODUODENOSCOPY / COLONOSCOPY [facility] [address] [place] [address] Phone: tel: fax: Referral ID Status Reason Start Date Expiration Date Visits Re quested Visits Authorized [id number] Closed 02/17/2013 08/16/2013 1 1 Encounter Details Date Type Department Care Team (Latest Contact Info) Description 02/17/2013 7:15 AM EDT - 02/17/2013 8:00 AM EDT Surgery [facility] [address] [place] [address] Garett Holt MD [address] [place] [address] ESOPHAGOGASTRODUODENOSCOPY Surgery Details Date/Time Status Location OR Service Patient Class Case Class Case Type Trauma Case? 02/17/2013 7:15 AM Posted [facility] END[facility] END[facility] 02 Endoscopy Outpatient N/A Panel 1 Procedure LRB Anes Op Region Wound Class Comments ESOPHAGOGASTRODUODENOSCOPY N/A None ESOPHAGOGASTRODUODENOSCOPY with biopsy / COLONOSCOPY COLONOSCOPY N/A None Surgeon Surgeon Role Service Panel Garett Holt MD Primary Endoscopy 1 documented in this [...] Sanchez, RNA - 02/17/2013 10:33 AM EDT [facility] Discharge Instructions - Following Endoscopy [...] of ADDITIONAL INSTRUCTIONS: Call Dr. Holt at [phone] if the following occurs: Colonoscopy: Severe abdominal [...] Code Departure Means Destination Home or Self Group Home documented in this encounter H&P Notes * Garett Holt MD - 02/17/2013 9:34 AM EDT [facility] Gastroenterology Outpatient Preprocedure H/P Primary Care Physician: [...] 10 mg, 10 mg, Intravenous, Once PRN, Jonathon, Garett Nina MD Allergy: Allergies Allergen Reactions [...] alternatives discussed with the patients legally authorized insurance claim representative. The patient's pre-procedure physical assessment indicates [...] in this encounter Nursing Notes * Isabel Dinero RN - 02/17/2013 7:[address] Gallardo moved patient to last because pt. is still drinking prep this am. He also does not want the Reglan given. documented in this encounter Miscellaneous Notes * Miscellaneous - Unknown, Unknown - 02/23/2013 12:51 PM EDT documented in this encounter Plan of Treatment Upcoming Encounters Date Type Department Care Team (Late st Contact Info) Description 07/29/2024 9:00 AM EST Appointment [facility] [address] [place] [address] Jomar Kim MD [address] [place] [address] Scheduled Orders Name Type Priority [...] Number ?Collected Date/Time ? Received Date/Time ? [id number] ? 02/17/13 10:05 EDT ?02/18/13 07:21 EDT [...] and the findings corroborate the ? diagnosis. [facility] 02/17/2013 10:0 5 AM EDT us Garett Holt MD PATHOLOGY ORDERABLES Final Result Performing Organization Address [facility] de Phone Number [facility] [address] [place] [address] * [facility] EGD-COLONOSCOPY (02/17/2013 7:15 AM EDT) 02/17/2013 7:15 AM EDT Impressions [facility] - 02/17/2013 10:33 AM EDT Plan: Await pathology results Screening Colonoscopy in 10 years. Follow-up office visit in 2 months Continue current medication for acid suppression/ dose 30 minutes before a meal This section is an excerpt of the full report, which can be found by clicking the hyperlink. us Garett Holt MD GI PROCEDURE ORDERABLES Fin al Result Performing Organization Address [facility] de Phone Number [facility] [address] [place] [address] documented in this encounter Visit Diagnoses Diagnosis Dysphagia- Primary Dysphagia, unspecified Dysphagia Dysphagia, unspecified Encounter for screening colonoscopy Special screening for malignant neoplasms, colon Encounter for screening colonoscopy Special screening for malignant neoplasms, colon Esophageal reflux Anemia, unspecified Dysphagia, unspecified(787.20) Dysphagia, unspecified documented in this encounter Administered Medications Inactive Administered Medications - up to 1 most recent administrations Medication Order MAR Action Action Date Dose Rate Site fentaNYL (SUBLIMAZE) 50 mcg/mL injection PRN, Starting on Fri02/17/13 at 0952, Until Fri02/17/13 at 1141, Intra-op Given 02/17/2013 10:14 AM EDT 25 mcg midazolam (VERSED) injection PRN, Starting on Fri02/17/13 at 0952, Until Fri02/17/13 at 1141, Intra-op Given 02/17/2013 10:14 AM EDT 1 mg documented in this encounter Discontinued Medications [...] PRN, Starting on Fri02/17/13 at 0952, Until 02/17/13 at 1141, Intra-op 0952 (Given - Provid er: TAVO Alford)0955 (Given - Provider: TAVO Alford)1005 (Given - Provider: TAVO Alford)1010 (Given - Provider: TAVO Alford)1014 (Given - Provider: TAVO Alford) documented in this encounter Orders Medications Ordered That Edwin ht Not Have Been Administered Count Last Ordered Date First Ordered Date metoclopramide HCl (REGLAN) injection 10 mg 1 02/17/2013 Lab Orders Without Results Count [...] 02/17/2013 documented in this encounter Care Teams Line Tender Relationship Specialty Start Date End Date Patrice Lombardi V, DO [address] [place] [address] PCP - General Family Medicine 08/10/12 04/24/14 Garett Holt MD [address] [place] [address] Internal Medicine-Gastroenterology 12/22/12 documented as of this encounter
--- OUTSIDE RECORDS SUMMARY | 2024-07-22 16:19 | XMS_ITS | Encounter Summary ---
Author [place] [address] Care Team Providers Care Armed Guard Name Role Phone Harjit Orellana DO, Viral Primary Care Provider [phone] Garett Holt MD Unavailable [phone] Reason for Visit * Reason Onset Date Comments Referral 02/18/2013 Encounter Details Date Type Department Care Team (Late st Contact Info) Description 02/18/2013 Telephone [facility] [address] [place] [address] Lombardi, Viral V, DO [address] [place] [address] Referral Social History Tobacco Use [...] encounter Miscellaneous Notes * Telephone Encounter - Gabriela Lundberg Christa - 02/18/2013 8:45 AM EDT Referral # [id number] for 1 visit for EGD. DOS 02-17-13. rhett * Telephone Encounter - Tamika Gabriela Goodwin - 02/18/2013 8:38 AM EDT Needs referral for EGD done on 02-17-13 at [place] [address] [place] [address] Diagnoses codes: 530.81, 285.9 and 787.20. rhett documented in this encounter Plan of Treatment Upcoming Encounters Date Type Department Care Team (Late st Contact Info) Description 07/29/2024 9:00 AM EST Appointment [facility] [address] [place] [address] Jomar Kim MD [address] [place] [address] documented as of this encounter Visit Diagnoses Not on filedocumented in this encounter Care Teams Armed Guard Relationship Specialty Start Date End Date Patrice Lombardi V, DO [address] [place] [address] PCP - General Family Medicine 08/10/12 04/24/14 Garett Holt MD [address] [place] [address] Internal Medicine-Gastroenterology 12/22/12 documented as of this encounter
--- OUTSIDE RECORDS SUMMARY | 2024-07-22 16:19 | XMS_ITS | Encounter Summary ---
Author Organization [place] [address] Care Team Providers Care Patient Transporter Name Role Phone Harjit Orellana DO, Viral Primary Care Provider [phone] Garett Holt MD Unavailable [phone] Encounter Details Date Type Department Care Team (Latest Contact Info) Description 05/17/2013 8:58 AM EDT - 05/17/2013 11:59 PM EDT Hospital Encounter [facility] [address] [place], [place] [id number] Patrice Lombardi V, DO [address] [place] [address] Lumbar strain; Back pain Discharge Disposition: Home or Self Care [...] this encounter Medications at Time of Discharge cephALEXin (KEFLEX) 500 mg capsuleIndication s:Hematuria,Dysur ia Take 1 Cap by mouth every 8 hours for 10 days. 30 Cap 0 05/13/2013 05/23/2013 cyclobenzaprine (FLEXERIL) 5 mg tabletIndications :Lumbar strain,Back pain,Muscle spasm Take 1 Tab by mouth every 8 hours as needed for Muscle spasms for 10 days. 30 Tab 1 05/13/2013 05/23/2013 documented as of this encounter Discharge Disposition Disposition Code Departure Means Destination Home or Self Care documented in this encounter Plan of Treatment Upcoming Encounters Date Type Department Care Team (Late st Contact Info) Description 07/29/2024 9:00 AM EST Appointment [facility] [address] [place] [address] Jomar Kim MD [address] [place] [address] documented as of this encounter Procedures Procedure Name Priority Date/Time Associated Diagnosis Comments XR LUMBAR SPINE AP AND LATERAL Routine 05/17/2013 9:17 AM EDT Lumbar strain Back pain XR THORACIC SPINE AP LATERAL AND SWIMMERS Routine 05/17/2013 9:17 AM EDT Lumbar strain Back pain documented in this encounter Results * XR THORACIC SPINE AP LATERAL AND SWIMMERS (05/17/2013 9:17 AM EDT) Anatomical Region Laterality Modality T-spine Radiographic Faby ging 05/17/2013 Impressions 05/17/2013 10:26 AM EDT IMPRESSION: No fracture. No dislocation. 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 Narrative 05/17/2013 10:26 AM EDT Thoracic spine 3 views INDICATION: Sprain. Procedure Note Perry Spivey MD - 05/17/2013 Thoracic spine 3 views INDICATION: Sprain. IMPRESSION: No fracture. No dislocation. Mild multilevel degenerative disc diseasethroughout the thoracic spine. us Viral Lombardi V, DO IMG DIAGNOSTIC IMAGING ORDERAB LES Final Result * XR LUMBAR SPINE AP [...] Continued visualization lumbar degenerative change. us Viral Harjit Orellana DO IMG DIAGNOSTIC IMAGING ORDERAB LES Final Result documented in this encounter Visit Diagnoses Diagnosis Lumbar strain Sprain of lumbar region Back pain Backache, unspecified documented in this encounter Care Teams Patient Transporter Relationship Specialty Start Date End Date Patrice Lombardi DO [address] [place] [address] PCP - General Family Medicine 08/10/12 04/24/14 Garett Holt MD [address] [place] [address] Internal Medicine-Gastroenterology 12/22/12 documented as of this encounter
--- OUTSIDE RECORDS SUMMARY | 2024-07-22 16:19 | XMS_ITS | Encounter Summary ---
Author Organization [place] [address] Care Team Providers Care Coat Check Attendant Name Role Phone Harjit Orellana DO, Viral Primary Care Provider [phone] Garett Holt MD Unavailable [phone] Reason for Referral * Ultrasound (Routine) - Closed Specialty Diagnoses / Procedures Referred By Ron bansal Referred To Contact Radiology Diagnoses Hematuria Dysuria CPT 54238 Procedures US RENAL AND BLADDER scheduling request sent to [facility] Patrice Lombardi DO [address] [place] [address] Phone: tel: fax: [facility] [address] [place] [address] Phone: tel: fax: Referral ID Status Reason Start Date Expiration Date Visits Re quested Visits Authorized [id number] Closed 05/13/2013 11/09/2013 1 1 Reason for Visit * Ultrasound (Routine) - Closed Specialty Diagnoses / Procedures Referred By Ron bansal Referred To Contact Radiology Diagnoses Hematuria Dysuria CPT 08759 Procedures US RENAL AND BLADDER scheduling request sent to [facility] Patrice Lombardi DO [address] [place] [address] Phone: tel: fax: [facility] [address] [place] [address] Phone: tel: fax: Referral ID Status Reason Start Date Expiration Date Visits Re quested Visits Authorized [id number] Closed 05/13/2013 11/09/2013 1 1 Encounter Details Date Type Department Care Team (Latest Contact Info) Description 05/20/2013 1:23 PM EDT - 05/20/2013 11:59 PM EDT Hospital Encounter [facility] [address] [place] [address] Lombardi, Viral V, DO [address] [place] [address] Hematuria; Dysuria Discharge Disposition: Home or Self Care Social [...] [place] [address] Jomar Kim MD [address] [place] [address] documented as of this encounter Procedures Procedure Name Priority Date/Time Associated Diagnosis Comments US RENAL AND BLADDER Routine 05/20/2013 2:03 PM EDT Hematuria Dysuria documented in this encounter Results * US [...] bladder areunremarkable. IMPRESSION: Normal us Viral Lombardi V DO IMG US ORDERABLES Final Result documented in this encounter Visit Diagnoses Diagnosis Hematuria Hematuria, unspecified Dysuria documented in this encounter Care Teams Coat Check Attendant Relationship Specialty Start Date End Date Patrice Lombardi V DO [address] [place] [address] PCP - General Family Medicine 08/10/12 04/24/14 Garett Holt MD [address] [place] [address] Internal Medicine-Gastroenterology 12/22/12 documented as of this encounter
--- OUTSIDE RECORDS SUMMARY | 2024-07-22 16:19 | XMS_ITS | Encounter Summary ---
Author Organization [place] [address] Care Team Providers Care Casing Finisher And Stuffer Name Role Phone Harjit Orellana DO, Viral Primary Care Provider [phone] Garett Holt MD Unavailable [phone] Reason for Visit * Reason Onset Date Comments Medication Management 01/11/2013 Niferex 15 0mg Forte plus no longer avail. Encounter Details Date Type Department Care Team (Late st Contact Info) Description 01/11/2013 Telephone [facility] [address] [place] [address] Patrice Lombardi V DO [address] [place] [address] Medication Management (Niferex 150mg Forte plus no longer avail.) Social History Tobacco Use Types Packs/Day Years [...] Filled Start Date End Date iron polysaccharides (NIFEREX 150 FORTE) 150-60-25-1 ro-oe-cmo-mg Cap Take 1 Cap by mouth daily. Replaces Niferex 150mg Forte Plus. 90 Cap 1 01/11/2013 3 documented in this encounter Miscellaneous Notes * Telephone Encounter - Suzanna Mcmillan - 01/11/2013 4:27 PM EDT [facility] states that Niferex 150mg Forte Plus is no longer available. Order changed to Ferrex 150mg forte plus instead. And escribed to them documented in this encounter Plan of Treatment Upcoming Encounters Date Type Department Care Team (Late st Contact Info) Description 07/29/2024 9:00 AM EST Appointment [facility] [address] [place] [address] Jomar Kim MD [address] [place] [address] documented as of this encounter Visit Diagnoses Not on filedocumented in this encounter Discontinued Medications Medication Sig Discontinue Reason Start Date End Da te iron polysaccharides (NIFEREX 150 FORTE PLUS) 150-50-50 mg Cap capsuleIndications:Iron deficiency Take 1 Cap by mouth daily. Availability 01/06/2013 01/11/2013 documented as of this encounter Care Teams Casing Finisher And Stuffer Relationship Specialty Start Date End Date Patrice Lombardi V, DO [address] [place] [address] PCP - General Family Medicine 08/10/12 04/24/14 Garett Holt MD [address] [place] [address] Internal Medicine-Gastroenterology 12/22/12 documented as of this encounter
--- OUTSIDE RECORDS SUMMARY | 2024-07-22 16:19 | XMS_ITS | Encounter Summary ---
Author Organization [place] [address] Care Team Providers Care Client Services Manager Name Role Phone Harjit Orellana DO, Viral Primary Care Provider [phone] Garett Holt MD Unavailable [phone] Reason for Visit * Reason Onset Date Comments Other 01/06/2013 Other 01/06/2013 [facility] fax RF request Encounter Details Date Type Department Care Team (Late st Contact Info) Description 01/06/2013 Telephone [facility] [address] [place] [address] Nanda Huitron LPN [address] [place] [address] Other; Other ([facility] fax RF request) Social History Tobacco Use Types Packs/Day Years [...] Start Date End Date omeprazole (PRILOSEC) 20 mgIndications:Epigast dionicio pain,Esophageal reflux Take 1 Cap by mouth daily. 90 Cap 1 01/06/2013 3 meloxicam (MOBIC) 15 mg tablet Take 1 Tab by mouth daily. 90 Tab 1 01/06/2013 3 iron polysaccharides (NIFEREX 150 FORTE PLUS) 150-50-50 mg Cap capsuleIndications:Ir on deficiency Take 1 Cap by mouth daily. 90 Cap 1 01/06/2013 3 documented in this encounter Miscellaneous Notes * Telephone Encounter - Suzanna Mcmillan - 01/06/2013 11:37 AM EDT Called pt to confirm that [facility] is her mail order pharmacy-Spoke to spouse-- who confirmed it RF request for Omeprazole,Poly-iron 150 Forte and Meloxicam escribed Rxs to [facility] and cancelled at [facility] * Telephone Encounter - Nanda Huitron LPN - 01/06/2013 11:29 AM EDT Prelim for venous us. She was neg for DVT documented in this encounter Plan of Treatment Upcoming Encounters Date Type Department Care Team (Late st Contact Info) Description 07/29/2024 9:00 AM EST Appointment [facility] [address] [place] [address] Jomar Kim MD [address] [place] [address] documented as of this encounter Visit Diagnoses Diagnosis Iron deficiency- Primary Other disorders of iron metabolism Epigastric pain Abdominal pain, epigastric Esophageal reflux documented in this encounter Discontinued Medications Medication Sig Discontinue Reason Start Date End Da te iron polysaccharides (NIFEREX 150 FORTE PLUS) 150-50-50 mg Cap capsuleIndications:Iron deficiency Take 1 Cap by mouth daily. Reorder 01/06/2013 01/06/2013 meloxicam (MOBIC) 15 mg tablet Take 1 Tab by mouth daily. Reorder 12/01/2012 01/06/2013 omeprazole (PRILOSEC) 20 mgIndications:Epigastric pain,Esophageal reflux Take 1 Cap by mouth daily. Reorder 01/06/2013 01/06/2013 documented as of this encounter Care Teams Client Services Manager Relationship Specialty Start Date End Date Patrice Lombardi DO [address] [place] [address] PCP - General Family Medicine 08/10/12 04/24/14 Garett Holt MD [address] [place] [address] Internal Medicine-Gastroenterology 12/22/12 documented as of this encounter
--- OUTSIDE RECORDS SUMMARY | 2024-07-22 16:19 | XMS_ITS | Encounter Summary ---
Author Organization [place] [address] Care Team Providers Care Twine Reeling Machine Operator Name Role Phone Harjit Orellana DO, Patrice Primary Care Provider [phone] Garett Holt MD Unavailable [phone] Reason for Visit * Reason Onset Date Comments Other 03/04/2013 left ankle x-ray Encounter Details Date Type Department Care Team (Late st Contact Info) Description 03/04/2013 Telephone [facility] [address] [place] [address] Patrice Lombardi V, DO [address] [place] [address] Other (left ankle x-ray ) Social History Tobacco Use Types Packs/Day [...] * Telephone Encounter - Katherine Hallman - 03/04/2013 8:36 AM EDT My Chart documented in this encounter Plan of Treatment Upcoming Encounters Date Type Department Care Team (Late st Contact Info) Description 07/29/2024 9:00 AM EST Appointment [facility] [address] [place] [address] Jomar Kim MD [address] [place] [address] documented as of this encounter Visit Diagnoses Not on filedocumented in this encounter Care Teams Twine Reeling Machine Operator Relationship Specialty Start Date End Date Patrice Lombardi DO [address] [place] [address] PCP - General Family Medicine 08/10/12 04/24/14 Garett Holt MD [address] [place] [address] Internal Medicine-Gastroenterology 12/22/12 documented as of this encounter
--- OUTSIDE RECORDS SUMMARY | 2024-07-22 16:19 | XMS_ITS | Encounter Summary ---
Author Organization [place] [address] Care Team Providers Care Acid Cutter Name Role Phone Harjit V DO, Viral Primary Care Provider [phone] Garett Holt MD Unavailable [phone] Encounter Details Date Type Department Care Team (Late st Contact Info) Description 03/12/2013 Orders Only [facility] [address] [place] [address] Lombardi, Viral V, DO [address] [place] [address] Social History Tobacco Use Types [...] Appointment [facility] [address] [place] [address] [id number] Jomar Kim MD [address] [place] [address] documented as of this encounter Procedures Procedure Name Priority Date/Time Associated Diagnosis Comments D DIMER QUANTITATIVE-QUEST Routine 03/12/2013 8:57 AM EDT CBC WITH AUTO DIFF-QUEST Routine 03/12/2013 8:57 AM EDT documented in this encounter Results * D DIMER QUANTITATIVE-QUEST (03/12/2013 8:57 AM EDT) D-Dimer 0.44 <0.50 mcg/mL FEU [facility] Comment: The D-Dimer test is used frequently to exclude an acute PE or DVT. In patients with a low to moderate clinical risk assessment and a D-Dimer result <0.50 mcg/mL FEU, the likelihood of a PE or DVT is very low. However, a thromboembolic event should not be excluded solely on the basis of the D-Dimer level. Increased levels of D-Dimer are associated with a PE, DVT, DIC, malignancies, inflammation, sepsis, surgery, trauma, , and advancing patient age. [Jonathan 2006 11:295(2):199-207] 03/12/2013 8:57 AM EDT 03/12/2013 8:59 AM EDT Narrative Resulting Agency Comment Performing Organization Information: ?Site ID: OW ?Name: [facility] ?Address: [address] [place] [address] [place] [address] ?Director: Artemio Avila MD PhD us Viral Lombardi V, DO [facility] Fi nal Result [facility] [address] * (ABNORMAL) CBC WITH AUTO DIFF-QUEST (03/12/2013 8:57 AM EDT) Pathologist [facility] WBC 7.9 3.8 - 10.8 Thousand/u L [facility] RBC 4.20 3.80 - 5.10 Million/uL [facility] Hemoglobin 11.6(L) 11.7 - 15.5 g/dL [facility] Hematocrit 36.4 35.0 - 45.0 % [facility] MCV 86.7 80.0 - 100.0 fL [facility] MCH 27.6 27.0 - 33.0 pg [facility] MCHC 31.8(L) 32.0 - 36.0 g/dL [facility] RDW 16.5(H) 11.0 - 15.0 % [facility] Platelets 247 140 - 400 Thousand/u L [facility] Neut# 5,822 1,500 - 7,800 cells/uL [facility] Lymph# 1,383 850 - 3,900 cells/uL [facility] Monocytes(Absol [facility]) 466 200 - 950 cells/uL [facility] Eos 182 15 - 500 cells/uL [facility] Baso# 47 0 - 200 cells/uL [facility] Neut Percent 73.7 % [facility] Lymph Percent 17.5 % [facility] Monocytes 5.9 % [facility] Eos Percent 2.3 % [facility] Baso Percent 0.6 % [facility] 03/12/2013 8:57 AM EDT 03/12/2013 8:59 AM EDT Narrative Resulting Agency Comment Performing Organization Information: ?Site ID: [id number] ?Name: [facility] ?Address: [facility] [place] [address] ?Director: Artemio Avila MD PhD us Viral Lombardi V, DO [facility] Fi nal Result [facility] documented in this encounter Visit Diagnoses Not on filedocumented in this encounter Care Teams Acid Cutter Relationship Specialty Start Date End Date Patrice Lombardi DO [address] [place] [address] PCP - General Family Medicine 08/10/12 04/24/14 Garett Holt MD [address] [place] [address] Internal Medicine-Gastroenterology 12/22/12 documented as of this encounter
--- OUTSIDE RECORDS SUMMARY | 2024-07-22 16:20 | XMS_ITS | Encounter Summary ---
Author Organization [place] [address] Care Team Providers Care Locator Name Role Phone Harjit Orellana DO, Viral Primary Care Provider [phone] Garett Holt MD Unavailable [phone] Reason for Visit * Reason Comments Osteoarthritis refill Gastroesophageal Reflux refill Cyst under skin Left axil amanda/ referred by PT- Knee Pain Right swelling X 1 m o/ currently doing PT Encounter Details Date Type Department Care Team (Late st Contact Info) Description 01/06/2013 8:20 AM EDT Office Visit [facility] [address] [place] [address] Patrice Lombardi V DO [address] [place] [address] Epigastric pain (Primary Dx); Esophageal reflux; Iron deficiency; Osteoarthrosis, unspecified whether generalized or localized, unspecified site; Frequency of urination; Need for Tdap vaccination; Left arm pain; Lipoma; Calf pain Social History Tobacco Use Types Packs/Day [...] Sign Reading Time Taken Comments Blood Pressure 128/60 01/06/2013 8:00 AM EDT Pulse 80 01/06/2013 8:00 AM EDT Temperature 36.7 ??C (98 ??F) 01/06/2013 8:00 AM EDT Respiratory Rate 18 01/06/2013 8:00 AM EDT Oxygen Saturation - - Inhaled Oxygen Concentration - - Weight 127.9 kg (282 lb) 01/06/2013 8:00 AM EDT Height 162.6 cm (5' 4 ) 01/06/2013 8:00 AM EDT Body Mass Index 48.41 01/06/2013 8:00 AM EDT documented in this encounter Ordered Prescriptions Prescription Sig Dispense Quantity Refills Last Filled Start Date End Date iron polysaccharides (NIFEREX 150 FORTE PLUS) 150-50-50 mg Cap capsuleIndications:Ir on deficiency Take 1 Cap by mouth daily. 30 Cap 5 01/06/2013 3 omeprazole (PRILOSEC) 20 mgIndications:Epigast dionicio pain,Esophageal reflux Take 1 Cap by mouth daily. 30 Cap 5 01/06/2013 3 documented in this encounter Progress Notes * Patrice Lombardi V, DO - 01/06/2013 8:01 AM EDT Subjective: Patient ID: Alyssa Jamil is a 57 y.o. female. HPI Chief Complaint Patient presents with ??? Osteoarthritis refill ??? Gastrophageal Reflux refill ??? Cyst under skin Left axillary/ referred by PT- ??? Knee Pain Right swelling X 1 mo/ currently doing PT Left arm pain from fatty mass like area near superior underarm. Right knee and calf pain.. Area swelling Colonoscopy pending- waiting on Pa from [facility] Annual pap due- info given for pt to schedule Pt not fasting for labs Patients past medical, family and social histories were reviewed and updated. There were no changesexcept as noted. Review of Systems Constitutional: Positive for chills and diaphoresis. Respiratory: Positive for shortness of breath (with sweating episodes). Gastrointestinal: Positive for abdominal pain (bloating). Negative for nausea and vomiting. Increase BM's Genitourinary: Positive for frequency. Musculoskeletal: Positive for myalgias, joint swelling and arthralgias. Currently doing PT Neurological: Positive for dizziness (occ) and headaches. Objective: Filed Vitals: 01/06/13 0800 BP: 128/60 Pulse: 80 Temp: 98 ??F (36.7 ??C) TempSrc: Oral Resp: 18 Height: 5' 4 (1.626 m) Weight: 282 lb (127.914 kg) Body mass index is 48.38 kg/(m^2). Physical Exam Constitutional: She is oriented [...] and Plan: Alyssa was seen today for osteoarthritis, gastrophageal reflux, cyst and knee pain. Diagnoses and associated orders for this visit: Epigastric pain - omeprazole (PRILOSEC) 20 mg; Take 1 Cap by mouth daily. - CBC with Auto Diff - Lab Collect; Future Esophageal reflux - omeprazole (PRILOSEC) 20 mg; Take 1 Cap by mouth daily. - CBC with Auto Diff - Lab Collect; Future Iron deficiency - iron polysaccharides (NIFEREX 150 FORTE PLUS) 150-50-50 mg Cap capsule; Take 1 Cap by mouth daily. Osteoarthrosis, unspecified whether generalized or localized, unspecified site - methylPREDNISolone acetate (DEPO-MEDROL) injection 80 mg; Inject 1 mL into the muscle once. Frequency of urination - POCT urinalysis dipstick automated Need for Tdap vaccination - Tdap vaccine greater than or equal to 11yo IM (Adacel) Left arm pain - X-ray shoulder left 4 views; Future - X-ray humerus left AP lateral; Future Lipoma - X-ray shoulder left 4 views; Future - X-ray humerus left AP lateral; Future Calf pain - Vascular Ultrasound leg extremity venous right; Future Other Orders - Cancel: meloxicam (MOBIC) 15 mg tablet; Take 1 Tab by mouth daily. - Cancel: Td vaccine greater than or equal to 7yo IM Results for orders placed in visit on 01/06/13 POCT URINALYSIS AUTOMATED Result Value Range Color, UA Clarity, UA Glucose, UA n Bilirubin, UA n Ketones, UA n Spec Grav, UA 1.010 1.001 - 1.035 g/dl Blood, UA 2+ pH, UA 7 5.0 - 8 Protein, UA n Urobilinogen, UA n 0.2 - 1.0 mg/dL Leukocytes, UA n Nitrite, UA n Appear BF Clear, Slightly Cloudy Clear, Cloudy Lot Number Expiration Date SeriAl # * Unknown, Unknown - 01/06/2013 12:00 AM EDT documented in this encounter Miscellaneous Notes * Patient Instructions - Renetta Greenfield RMA - 01/06/2013 8:03 AM EDT Images from the original note were not included. Esophagitis (Heartburn) Heartburn (esophagitis) happens when stomach acid backs up into the lower esophagus and causes irritation. It is common in patients with a hiatal hernia or gastroesophageal reflux disease (GERD). Heartburn is often brought on by certain foods or drinks. It can also be caused by nicotine and drugs. Treatment of heartburn includes avoiding food, drinks, and drugs known to cause pain. Eat smaller meals. Do not eat within 3 hours of going to bed. Elevate the head of your bed 4-8 inches to reduce acid reflux. If you are overweight, dieting can improve symptoms by losing weight. Stop smoking. Medical therapy also includes: ?? Liquid antacids. ?? Medicine to reduce stomach acid. SEEK IMMEDIATE MEDICAL CARE IF: ?? Symptoms return after relief from medicine. ?? You have shortness of breath. ?? You have any trouble swallowing. ?? You have repeated vomiting. ?? You have black or bloody stools. ?? You develop sweats or pain that radiates into your arms or neck. Document Released: 10/02/2005 Document Re-Released: 12/01/2008 ExitCare?? Patient Information ??2009 [employer]. documented in this encounter Plan of Treatment Upcoming Encounters Date Type Department Care Team (Late st Contact Info) Description 07/29/2024 9:00 AM EST Appointment [facility] [address] [place] [address] Jomar Kim MD [address] [place] [address] documented as of this encounter Procedures Procedure Name Priority Date/Time Associated Diagnosis Comments POCT URINALYSIS AUTOMATED Routine 01/06/2013 8:17 AM EDT Frequency of urination documented in this encounter Results * (ABNORMAL) CBC WITH AUTO DIFF (01/06/2013 11:28 AM EDT) WBC 10.6 4.0 - 11.0 x10(3)/mcL [facility] RBC 4.40 4.00 - 5.10 x10(6)/mcL [facility] Hgb 12.1 12.0 - 15.7 gm/dL [facility] Hct 37.3 36.0 - 45.9 % [facility] MCV 84.7 80.0 - 95.8 fL [facility] MCH 27.5 27.0 - 33.2 pg [facility] MCHC 32.5(L) 33.0 - 36.0 gm/dL [facility] RDW 15.3(H) 11.5 - 14.5 % [facility] Platelet 284 150 - 400 x10(3)/mcL [facility] MPV 8.1 7.0 - 12.0 fL [facility] Blood specimen (specimen) UPPER LIMB STRUCTURE / Unknown 01/06/2013 11:28 AM EDT 01/06/2013 11:29 AM EDT us Viral Lombardi V, DO HEMATOLOGY ORDERABLES Final Re sult [facility] [address] [place] [address] * XR HUMERUS LEFT AP LATERAL (01/06/2013 11:18 AM EDT) Anatomical Region Laterality Modality Arm Radiographic Faby ging 01/06/2013 Impressions 01/06/2013 11:35 AM EDT IMPRESSION: 1. Normal left humerus, 2 views. Narrative 01/06/2013 11:35 AM EDT Left humerus, 2 views, January 06, 2013 11:27:11 AM INDICATIONS: Trauma, pain. Two views of the left humerus show no fracture or dislocation. There is no osseous abnormality identified. Procedure Note Stone Craig MD - 01/06/2013 Left humerus, 2 views, January 06, 2013 11:27:11 AM INDICATIONS: Trauma, pain. Two views of the left humerus show no fracture or dislocation. There is noosseous abnormality identified. IMPRESSION: 1. Normal left humerus, 2 views. us Viral Lombardi V, DO IMG DIAGNOSTIC IMAGING ORDERAB LES Final Result * XR SHOULDER LEFT 4 VIEWS (01/06/2013 11:18 AM EDT) Anatomical Region Laterality Modality Shoulder Radiographic Faby ging 01/06/2013 Impressions 01/06/2013 11:35 AM EDT IMPRESSION: 1. Normal left shoulder 4 views. Narrative 01/06/2013 11:35 AM EDT Left shoulder, 4 views, January 06, 2013 11:27:11 AM INDICATIONS: Pain. Four views left shoulder are normal. No fracture or dislocation. Osseous structures intact. No interval change from comparison August 18, 2012 Procedure Note Stone Craig MD - 01/06/2013 Left shoulder, 4 views, January 06, 2013 11:27:11 AM INDICATIONS: Pain. Four views left shoulder are normal. No fracture or dislocation. Osseousstructures intact. No interval change from comparison August 18, 2012 IMPRESSION: 1. Normal left shoulder 4 views. us Viral Lombardi V, DO IMG DIAGNOSTIC IMAGING ORDERAB LES Final Result * WI US LOWER EXTREMITY VENOUS RIGHT (01/06/2013 10:50 AM EDT) Anatomical Region Laterality Modality Vascular, Thigh, Leg Vascular Im aging 01/06/2013 10:2 9 AM EDT Impressions 01/06/2013 7:44 PM EDT ??FINDINGS: ?The deep veins of the right lower extremity are patent and compressible. Normal Doppler characteristics of ? spontaneous, phasic flow and augmentation to distal compression are demonstrated throughout the deep ? venous system of the right lower extremity. No reflux is noted. ? The greater saphenous vein is patent and compressible. ? The contralateral common femoral vein is patent with augmentation noted. ?CONCLUSIONS ??No evidence of deep vein thrombosis identified in the right lower extremity or the left common femoral vein. ?No evidence of greater saphenous vein thrombosis identified in the right lower extremity. ?? Narrative Procedure Note Jose Jordan MD - 01/06/2013 IMPRESSION FINDINGS: The deep veins of the right lower extremity are patentand compressible. Normal Doppler characteristics of spontaneous, phasic flow and augmentation to distalcompression are demonstrated throughout the deep venous system of the right lower extremity. No refluxis noted. The greater saphenous vein is patent and compressible. The contralateral common femoral vein is patent withaugmentation noted. CONCLUSIONS No evidence of deep vein thrombosis identified in the right lowerextremity or the left common femoral vein. No evidence of greater saphenous vein thrombosis identified in the rightlower extremity. us Viral Lombardi V, DO IMG VASCULAR ORDERABLES Final Result * POCT URINALYSIS AUTOMATED (01/06/2013 8:17 AM EDT) Color, UA Clear, Yellow, Hayes, Rust [facility] Clarity, UA Clear, Cloudy [facility] Glucose, UA n g/dl% [facility] Bilirubin, UA n Pos/Neg [facility] Ketones, UA n Pos/Neg [facility] research center director Grav, UA 1.010 1.001 - 1.035 g/dl [facility] Blood, UA 2+ Pos/Neg [facility] pH, UA 7 5.0 - 8 [facility] Protein, UA n Pos/Neg [facility] Urobilinogen, UA n 0.2 - 1.0 mg/dL [facility] Leukocytes, UA n Pos/Neg [facility] Nitrite, UA n Pos/Neg [facility] Appear BF Clear, Slightly Cloudy Clear, Cloudy [facility] Lot Number SEP OFFICE Expiration Date SEP [facility] SeriAl # SEP [facility] Urine specimen (specimen) 01/06/2013 8:17 AM EDT us Viral Lombardi V, DO POINT OF CARE TEST ORDERABLES Final Result [facility] documented in this encounter Visit Diagnoses Diagnosis Epigastric pain- Primary Abdominal pain, epigastric Esophageal reflux Iron deficiency Other disorders of iron metabolism Osteoarthrosis, unspecified whether generalized or localized, unspecified site Frequency of urination Urinary frequency Need for Tdap vaccination Need for prophylactic vaccination with combined spjoklxejm-zrgccse-pikshkwch (DTP) vaccine Left arm pain Pain in limb Lipoma Lipoma of unspecified site Calf pain Pain in limb Calf pain Pain in limb Left arm pain Pain in limb Lipoma Lipoma of unspecified site documented in this encounter Administered Medications Inactive Administered Medications - up to 1 most recent administrations Medication Order MAR Action Action Date Dose Rate Site methylPREDNISolone acetate (DEPO-MEDROL) injection 80 mg 80 mg, Intramuscular, ONCE, 1 dose, On Fri01/06/13 at 0900, Dx: 1. Osteoarthrosis, unspecified whether generalized or localized, unspecified siteIndications:Osteoart hrosis, unspecified whether generalized or localized, unspecified site Given 01/06/2013 9:02 AM EDT 80 mg Right Upper Outer Quadrant documented in this encounter Discontinued Medications Medication Sig Discontinue Reason Start Date End Da te omeprazole (PRILOSEC) 20 mgIndications:Epigastric pain,Esophageal reflux Take 1 Cap by mouth daily. Reorder 12/01/2012 01/06/2013 iron polysaccharides (NIFEREX 150 FORTE PLUS) 150-50-50 mg Cap capsuleIndications:Iron deficiency Take 1 Cap by mouth daily. Reorder 10/23/2012 01/06/2013 documented as of this encounter Orders Immunization/Injection Count Last Ordered Date First Ordered Date TDAP VACCINE =>7YO IM 1 01/06/2013 documented in this encounter Care Teams Locator Relationship Specialty Start Date End Date Patrice Lombardi DO [address] [place] [phone] PCP - General Family Medicine 08/10/12 04/24/14 Garett Holt MD [address] [place] [phone] Internal Medicine-Gastroenterology 12/22/12 documented as of this encounter
--- OUTSIDE RECORDS SUMMARY | 2024-07-22 16:20 | XMS_ITS | Encounter Summary ---
Author Organization [place] [address] Care Team Providers Care Lithographic Stripper Name Role Phone Harjit Orellana DO, Viral Primary Care Provider [phone] Garett Holt MD Unavailable [phone] Reason for Referral * GI Procedure (Routine) - Closed Specialty Diagnoses / Procedures Referred By Ron bansal Referred To Contact Diagnoses Anemia Procedures AMB COLONOSCOPY COMM ORDER Garett Holt MD [address] [place] [id number] Phone: tel: fax: Referral ID Status Reason Start Date Expiration Date Visits Re quested Visits Authorized [id number] Closed 12/22/2012 06/20/2013 1 1 * GI Procedure (Routine) - Closed Specialty Diagnoses / Procedures Referred By Ron bansal Referred To Contact Diagnoses Anemia Dysphagia GERD (gastroesophageal reflux disease) Procedures AMB EGD COMM ORDER Garett Holt MD [address] [place] [id number] Phone: tel: fax: Referral ID Status Reason Start Date Expiration Date Visits Re quested Visits Authorized [id number] Closed 12/22/2012 06/20/2013 1 1 Reason for Visit * Reason Comments Gastroesophageal Reflux Encounter Details Date Type Department Care Team (Late st Contact Info) Description 12/22/2012 8:30 AM EDT Office Visit [facility] [address] [address] Garett Holt MD [address] [place], [place] [id number] Anemia (Primary Dx); Dysphagia; GERD (gastroesophageal reflux disease); Screening for colorectal cancer Social History Tobacco Use Types Packs/Day Years [...] Sign Reading Time Taken Comments Blood Pressure 190/110 12/22/2012 9:08 AM EDT Pulse 76 12/22/2012 9:08 AM EDT Temperature - - Respiratory Rate - - Oxygen Saturation - - Inhaled Oxygen Concentration - - Weight 127.9 kg (282 lb) 12/22/2012 9:08 AM EDT Height 162.6 cm (5' 4 ) 12/22/2012 9:08 AM EDT Body Mass Index 48.41 12/22/2012 9:08 AM EDT documented in this encounter H&P Notes * Garett Holt MD - 12/22/2012 9:35 AM EDT [facility] Gastroenterology Consult Note Primary Care Physician: Patrice Lombardi DO Reason for referral: Gastrophageal Reflux History of Presenting Illness Alyssa Jamil is a(n) 57 y.o. female referred to [...] bloating and periumbilical cramps soon after meals. Prior Endoscopies: nil Review of Systems: Constitutional: Fever -, sweats -, chills -, weight gain + HEENT: Headaches -, visual problems -, hearing problems - Neuro: Dizziness -, seizures -, neuropathy -, Stroke -, TIA - Respiratory: Shortness of breath -, chest pain -, cough - Cardiovascular: Palpitation -, paroxysmal nocturnal dyspnea -, orthopnea -, Leg swelling - Gastrointestinal: as in the HPI Genitourinary: Dysuria -, urinary frequency -, urinary urgency -, hematuria - Musculoskeletal: Arthralgia +, myalgia - Endocrine: Diabetes -, thyroid problems - Integumentary: Easy bruising -, skin problems - Hematology / Lymphatics: Hx of anemia -, Lymphadenopathy - PMSH: History reviewed. No pertinent past medical history. Past Surgical History Procedure Laterality Date ??? Cholecystectomy ??? Colonoscopy ??? Upper gastrointestinal endoscopy Medications Current Outpatient Prescriptions Medication Sig Dispense Refill ??? meloxicam (MOBIC) 15 mg tablet Take 1 Tab by mouth daily. 30 Tab 2 ??? omeprazole (PRILOSEC) 20 mg Take 1 Cap by mouth daily. 30 Cap 2 ??? iron polysaccharides (NIFEREX 150 FORTE PLUS) 150-50-50 mg Cap capsule Take 1 Cap by mouth daily. 30 Cap 5 No current facility-administered medications for this visit. Allergy: Allergies Allergen Reactions ??? No Known Allergies FMH: Family History Problem Relation Age of Onset ??? Family history unknown: Yes Social History: History Social History ??? Marital [...] No narrative on file Physical Examination BP 190/110 Pulse 76 Ht 5' 4 (1.626 m) Wt 282 lb (127.914 kg) BMI 48.38 kg/m2 ?? General: alert, well developed, morbidly obese, in no acute distress ?? HEENT: Not pale, anicteric, normal, mucous membranes moist ?? Neck: supple and no LAD ?? Lungs: Good air movts, clear to auscultation bilaterally ?? Cardiac: RRR. S1 S2 normal. ?? Abdomen: soft, nontender, BS normoactive, no masses or ascites Rectal: Deferred till colonoscopy ?? : No CVA tenderness, kidneys not ballotable ?? Ext: No cyanosis, clubbing. Trace pitting pedal edema. Calf tenderness + ?? Neurological: No cranial nerve deficits. No asterixis Laboratory: Lab Results Component Value Date WBC 8.3 10/20/2012 HGB 11.3* 10/20/2012 HCT 34.5* 10/20/2012 MCV 84.7 10/20/2012 PLT 265 10/20/2012 Lab Results Component Value Date ALT 19 06/22/2012 AST 14 06/22/2012 ALKPHOS 89 06/22/2012 LABALBU 4.1 06/22/2012 LIPASE 14 07/27/2009 Lab Results Component Value Date CREATININE 0.6 10/20/2012 BUN 13 10/20/2012 NA 143 10/20/2012 K 4.2 10/20/2012 CL 104 10/20/2012 CO2 29 10/20/2012 No results found for this basename: INR, PROTIME Assessment Alyssa was seen today for gastrophageal reflux. Need to screen to r/o complications of GERD in patient with long standing symptoms Diagnoses and associated orders for this visit: GERD (gastroesophageal reflux disease) - EGD Comm Order Anemia - Iron Level and TIBC; Future - Ferritin; Future - EGD Comm Order - Colonoscopy Comm Order Dysphagia - EGD Comm Order Screening for colorectal cancer - Colonoscopy Comm Order Risks of infection, perforation, hemorrhage, adverse drug reaction and aspiration of endoscopy werediscussed. Benefits and alternatives were also explained, the patient was allowed to ask questions,she expressed understanding and was willing to proceed. Obesity - Weight loss counselling offered - Low fat diet advised RTC after endoscopy Thank you Patrice Lombardi DO for asking me to see Alyssa Jamil in consultation. Garett Holt MD documented in this encounter Miscellaneous Notes * Patient Instructions - Garett Holt MD - 12/22/2012 9:33 AM EDT Anemia (Iron Deficiency) Hemoglobin is the protein in your blood that carries oxygen. If this protein becomes too low you are anemic. The most common cause of this is iron deficiency. Usually mild anemia (low red blood cells) may not be noticeable. However, if it becomes more severe you will feel more fatigued, breathless, exercise intolerant, and may experience fainting or palpitations (heart beats you can feel). CAUSES ?? . Anemia during is common, as the developing fetus will use more iron and folic acid as it is developing. ?? Blood loss. Most of the female iron deficiency anemias during the years of menstruation are simply because of increased blood loss, and often require no further work up. Anemias in later life whenmenstruation is no longer a consideration may require work up if the cause is unknown. ?? Increased blood destruction. ?? Simply not making enough blood. It is important to treat anemia as it can make you less able to cope with stress, either physical or emotional. It also decreases a body's responses to infection. There are many types of anemia, which occur, and different types of evaluation are required. If youhave a family history of anemia, discuss this with your caregiver. If your family history includes genetic (inherited) anemias such as sickle cell anemia etc. you and your partner may want to be tested and receive genetic counseling. HOME CARE INSTRUCTIONS ?? Your Registered Dietitian can help you with your diet questions. ?? Take iron and vitamins as prescribed by your caregiver. ?? Eat a diet rich in iron such as liver, beef, whole grain bread, eggs and dried fruit. ?? Eating vitamin C intake rich foods along with iron containing foods will help the stomach absorbmore iron. SEEK IMMEDIATE MEDICAL CARE IF: ?? You have a fainting episode. DO NOT DRIVE YOURSELF. Call your local emergency services (911 if in [place] if no other help is available. ?? You have chest pain, nausea (feeling sick to your stomach) or vomiting. ?? You develop severe or increased shortness of breath with activities. ?? You develop weakness or increased severe thirst, or rapid pulse and heartbeat. ?? You develop unexplained sweating or become lightheaded on getting up from bed or a chair. Document Released: 08/22/2001 Document Re-Released: 06/03/2009 ExitCare?? Patient Information ??2009 zuuka!.Dysphagia (Swallowing Problems) Swallowing problems occur when solids and liquids seem to stick in your throat on the way down to your stomach, or the food takes longer to get to the stomach. Other symptoms (problems) include regurgitating (burping) up food, noises coming from the throat, chest discomfort with swallowing, and a feeling of fullness in the throat when swallowing. When blockage in the throat is complete it may be a ssociated with drooling. CAUSES OF DYSPHAGIA (SWALLOWING PROBLEMS) There are many causes of swallowing difficulties and the following is generalized information regarding a number of reasons for this problem. Problems with swallowing may occur because of problems with the muscles. The food cannot be propelled in the usual manner into the stomach. There may be ulcers, scar tissue or inflammation (soreness) in the esophagus (the food tube from the mouth to the stomach) which blocks food from passing normally into the stomach. Causes of inflammation include acid reflux from the stomach into the esophagus. Inflammation can also be caused by the herpes simplex virus, Nikki (yeast), radiation (as with treatment of cancer), or inflammation from medications not t aken with adequate fluids to wash them down into the stomach. There may be nerve problems so signals cannot be sent adequately telling the muscles of the esophagus to contract and move the food along. Achalasia is a rare disorder of the esophagus in which muscular contractions of the esophagus are uncoordinated. Globus hystericus is a relatively common problem in young females in which there is asense of an obstruction or difficulty in swallowing, but in which no abnormalities can be found. This problem usually improves over time with reassurance and testing to rule out other causes. EVALUATION (DIAGNOSIS) OF SWALLOWING PROBLEMS A number of tests will help your caregiver know what is the cause of your swallowing problems. These tests may include a barium swallow in which x-rays are taken while you are drinking a liquid that outlines the lining of the esophagus on x-ray. If the stomach and small bowel are also studied in this manner it is called an upper gastrointestinal exam (UGI). Endoscopy may be done in which your caregiver examines your throat, esophagus, stomach and small bowel with an instrument like a small flexible telescope. Motility studies which measure the effectiveness and coordination of the muscular contractions of the esophagus may also be done. TREATMENT AND ITS IMPORTANCE The treatment of swallowing problems are many, varying from medications to surgical treatment. The treatment varies with the type of problem found. Your caregiver will discuss your results and treatment with you. If swallowing problems are severe the correction problems which may occur include: malnu trition, pneumonia (from food going into the breathing tubes called trachea and bronchi), and an increase in tumors (lumps) of the esophagus. SEEK IMMEDIATE MEDICAL ATTENTION IF: ?? Food or other object becomes lodged in your throat or esophagus and won???t move. Document Released: 08/22/2001 Document Re-Released: 10/06/2007 ExitCare?? Patient Information ??2009 zuuka!. documented in this encounter Plan of Treatment Upcoming Encounters Date Type Department Care Team (Late st Contact Info) Description 07/29/2024 9:00 AM EST Appointment [facility] [address] [place] [address] Jomar Kim MD [address] [place] [address] documented as of this encounter Results * FERRITIN (12/22/2012 10:29 AM EDT) Ferritin 67 6 - 180 ng/mL [facility] Blood specimen (specimen) UPPER LIMB STRUCTURE / Unknown 12/22/2012 10:29 AM EDT 12/22/2012 10:30 AM EDT us Garett Holt MD CHEMISTRY ORDERABLES Final Result Performing Organization Address [facility] Co de Phone Number [facility] [address] [place] [address] * (ABNORMAL) IRON LEVEL AND TIBC (12/22/2012 10:29 AM EDT) Iron 47 19 - 153 mcg/dL [facility] TIBC 327 260 - 495 mcg/dL [facility] %Saturation 14(L) 20 - 50 % [facility] Blood specimen (specimen) UPPER LIMB STRUCTURE / Unknown 12/22/2012 10:29 AM EDT 12/22/2012 10:30 AM EDT Garett Holt MD CHEMISTRY ORDERABLES Edited Result - Final Performing Organization Address [email or web address]] de Phone Number [facility] [address] [place] [address] documented in this encounter Visit Diagnoses Diagnosis Anemia- Primary Anemia, unspecified Dysphagia Dysphagia, unspecified GERD (gastroesophageal reflux disease) Esophageal reflux Screening for colorectal cancer Special screening for malignant neoplasms, colon documented in this encounter Orders Nursing Count Last Ordered Date First Orde red Date AMB COLONOSCOPY COMM ORDER 1 12/22/2012 AMB EGD COMM ORDER 1 12/22/2012 documented in this encounter Care Teams Lithographic Stripper Relationship Specialty Start Date End Date Patrice Lombardi V DO [address] [place] [address] PCP - General Family Medicine 08/10/12 04/24/14 Garett Holt MD [address] [place] [address] Internal Medicine-Gastroenterology 12/22/12 documented as of this encounter
--- OUTSIDE RECORDS SUMMARY | 2024-07-22 16:20 | XMS_ITS | Encounter Summary ---
Author Organization [place] [address] Care Team Providers Care Car Sales Representative Name Role Phone Harjit Orellana DO Viral Primary Care Provider [phone] Garett Holt MD Unavailable [phone] Encounter Details Date Type Department Care Team (Latest Contact Info) Description 01/06/2013 10:30 AM EDT - 01/06/2013 10:44 AM EDT Hospital Encounter EDG D-WING XRAY [facility] [address] [place], [place] [id number] Patrice Lombardi V, DO [address] [place] [address] Left arm pain; Lipoma Discharge Disposition: Home or Self Care Social [...] 9:00 AM EST Appointment [facility] [address] [place], [place] [id number] Jomar Kim MD [address] [place] [address] documented as of this encounter Procedures Procedure Name Priority Date/Time Associated Diagnosis Comments XR SHOULDER LEFT 4 VIEWS Routine 01/06/2013 11:18 AM EDT Left arm pain Lipoma XR HUMERUS LEFT AP LATERAL Routine 01/06/2013 11:18 AM EDT Left arm pain Lipoma documented in this encounter Results * XR HUMERUS LEFT AP LATERAL (01/06/2013 [...] IMPRESSION: 1. Normal left shoulder 4 views. Patrice Orellana DO IMG DIAGNOSTIC IMAGING ORDERAB LES Final Result documented in this encounter Visit Diagnoses Diagnosis Left arm pain Pain in limb Lipoma Lipoma of unspecified site documented in this encounter Care Teams Car Sales Representative Relationship Specialty Start Date End Date Patrice Lombardi DO [address] [place] [address] PCP - General Family Medicine 08/10/12 04/24/14 Garett Holt MD [address] [place] [address] Internal Medicine-Gastroenterology 12/22/12 documented as of this encounter
--- OUTSIDE RECORDS SUMMARY | 2024-07-22 16:20 | XMS_ITS | Encounter Summary ---
Author Organization [place] [address] Care Team Providers Care Biostatistics Manager Name Role Phone Harjit Orellana DO, Viral Primary Care Provider [phone] Garett Holt MD Unavailable [phone] Reason for Visit * Ultrasound (Routine) - Closed Specialty Diagnoses / Procedures Referred By Ron bansal Referred To Contact Diagnoses Calf pain STAT OK PER TERESA CALL BACK [phone] Procedures [facility] US LOWER EXTREMITY VENOUS RIGHT VA VENOUS Lombardi, Viral V, DO [address] [place] [address] Phone: tel: [facility] [place] [address] Phone: tel: Referral ID Status Reason Start Date Expiration Date Visits Re quested Visits Authorized [id number] Closed 01/06/2013 02/05/2013 1 1 Encounter Details Date Type Department Care Team (Latest Contact Info) Description 01/06/2013 10:00 AM EDT - 01/06/2013 10:29 AM EDT Hospital Encounter EDG VASCULAR LAB [facility] [place] [address] Lombardi, Viral V, DO [address] [place] [address] Calf pain Discharge Disposition: Home or Self Care [...] 9:00 AM EST Appointment [facility] [address] [place] [address] Jomar Kim MD [address] [place] [address] documented as of this encounter Procedures Procedure Name Priority Date/Time Associated Diagnosis Comments [facility] LOWER EXTREMITY VENOUS RIGHT STAT 01/06/2013 10:50 AM EDT Calf pain documented in this encounter Results * [facility] LOWER EXTREMITY VENOUS RIGHT (01/06/2013 10:50 AM [...] vein thrombosis identified in the rightlower extremity. Patrice Orellana DO IM VASCULAR ORDERABLES Final Result documented in this encounter Visit Diagnoses Diagnosis Calf pain Pain in limb documented in this encounter Care Teams Biostatistics Manager Relationship Specialty Start Date End Date Patrice Lombardi DO [address] [place] [address] PCP - General Family Medicine 08/10/12 04/24/14 Garett Holt MD [address] [place] [address] Internal Medicine-Gastroenterology 12/22/12 documented as of this encounter
--- OUTSIDE RECORDS SUMMARY | 2024-07-22 16:20 | XMS_ITS | Encounter Summary ---
Author Organization [place] [address] Care Team Providers Care Associate Pathologist Name Role Phone Unavailable Primary Care Provider Unavailabl e Encounter Details Date Type Department Care Team (Latest Contact Info) Description 07/05/2011 12:56 PM EDT - 07/05/2011 1:14 PM EDT Hospital Encounter GRT XRAY [address] [place] [address] Patrice Lombardi V, DO [address] [place] [address] Low back pain Discharge Disposition: Home or Self [...] this encounter Medications at Time of Discharge lisinopril (PRINIVIL;ZESTRIL ) 10 mg tabletIndications :HTN (hypertension) Take 1 Tab by mouth daily for 90 days. 30 Tab 2 07/04/2011 10/02/2011 NAPROXEN SODIUM (ALEVE ORAL) Take by mouth. 06/15/2012 documented as of this encounter Discharge Disposition Disposition Code Departure Means Destination Home or Self Care documented in this encounter Progress Notes * Unknown, Unknown - 07/05/2011 12:57 PM EDT * Unknown, Unknown - 07/05/2011 12:57 PM EDT documented in this encounter Plan of Treatment Upcoming Encounters Date Type Department Care Team (Late st Contact Info) Description 07/29/2024 9:00 AM EST Appointment [facility] [address] [place] [address] Jomar Kim MD [address] [place] [address] documented as of this encounter Procedures Procedure Name Priority Date/Time Associated Diagnosis Comments XR LUMBAR SPINE AP AND LATERAL Routine 07/05/2011 1:12 PM EDT Low back pain documented in this encounter Results * XR LUMBAR SPINE AP AND LATERAL (07/05/2011 1:12 PM EDT) Anatomical Region Laterality Modality L-spine Radiographic Faby ging 07/05/2011 Impressions 07/05/2011 2:32 PM EDT IMPRESSION: No fractures. No dislocations. Moderate degenerative disc disease L4-L5 and L5-S1. Narrative 07/05/2011 2:32 PM EDT Lumbar spine 3 views HISTORY: Back pain. Procedure Note Perry Spivey - 07/05/2011 Lumbar spine 3 views HISTORY: Back pain. IMPRESSION: No fractures. No dislocations. Moderate degenerative disc disease L4-L5 and L5-S1. us Viral Lombardi V, DO IMG DIAGNOSTIC IMAGING ORDERAB LES Final Result documented in this encounter Visit Diagnoses Diagnosis Low back pain Lumbago documented in this encounter
--- OUTSIDE RECORDS SUMMARY | 2024-07-22 16:20 | XMS_ITS | Encounter Summary ---
Author Organization [place] [address] Care Team Providers Care Marketing Representative Name Role Phone Harjit Orellana DO, Viral Primary Care Provider Reason for Visit * Reason Onset Date Comments Other 12/15/2012 re: referral Encounter Details Date Type Department Care Team (Late st Contact Info) Description 12/15/2012 Telephone [facility] [address] [place] [address] Lombardi, Viral V, DO [address] [place] [address] Other (re: referral ) Social History Tobacco Use Types Packs/Day [...] Notes * Telephone Encounter - Ayesha Pop - 12/15/2012 2:49 PM EDT 12-15-12 referral done To [facility] * Telephone Encounter - Suzanna Mcmillan - 12/15/2012 12:39 PM EDT Returned missed call and Mr Omero states that ,Alyssa has appt to see specialist and appt has been made but was advised to call us back and make sure it was pre-certified. She is not seeing the one Dr Lombardi recommended but someone else in that group. documented in this encounter Plan of Treatment Upcoming Encounters Date Type Department Care Team (Late st Contact Info) Description 07/29/2024 9:00 AM EST Appointment [facility] [address] [place] [address] Jomar Kim MD [address] [place] [address] documented as of this encounter Visit Diagnoses Not on filedocumented in this encounter Care Teams Marketing Representative Relationship Specialty Start Date End Date Patrice Lombardi V, DO [address] [place] [address] PCP - General Family Medicine 08/10/12 04/24/14 documented as of this encounter
--- OUTSIDE RECORDS SUMMARY | 2024-07-22 16:20 | XMS_ITS | Encounter Summary ---
Author Organization [place] [address] Care Team Providers Care Public Speaking Teacher Name Role Phone Harjit Orellana DO, Viral Primary Care Provider [phone] Garett Holt MD Unavailable [phone] Reason for Visit * Reason Onset Date Comments Other 12/30/2012 Encounter Details Date Type Department Care Team (Late st Contact Info) Description 12/30/2012 Telephone [facility] [address] [address] Garett Holt MD [address] [place] [id number] Other Social History Tobacco Use Types [...] encounter Miscellaneous Notes * Telephone Encounter - Janey Trejo Brittany - 02/02/2013 12:54 PM EDT SCHEDULED PROCEDURES PER HERBER Ponce * Telephone Encounter - Isabel Asencio - 01/21/2013 4:39 PM EDT Pt called inquiring about her ref. i advised her i did not see a ref for the colon and egd but there was one for the consult. i advised them to call there pcp and request this ref for her procedures and i will fax them a ref request with all the codes they need. i did fax that request at 441pm 01/21/13-clf * Telephone Encounter - Janey Trejo - 12/31/2012 10:39 AM EDT LM/VM TCB * Telephone Encounter - Karen Coleman - 12/30/2012 4:20 PM EDT PT'S CALLED AND WANTS TO KNOW IF WE GOT APPROVAL FOR PT TO HAVE COLONOSCOPY TESTS FROM [employer]. DID NOT SEE ANY DOCUMENTATION BUT PT HAS PREP HE SAID AND WE ARE SUPPOSED TO BE GETTING THE APPROVAL FOR HER TO HAVE THIS DONE? PLEASE GIVE ALBARO A CALL BACK TO LET HIM KNOW WHAT'S GOING ON AND WHEN WE GET IT SCHEDULED. documented in this encounter Plan of Treatment Upcoming Encounters Date Type Department Care Team (Late st Contact Info) Description 07/29/2024 9:00 AM EST Appointment [facility] [address] [place] [address] Jomar Kim MD [address] [place] [address] documented as of this encounter Visit Diagnoses Not on filedocumented in this encounter Care Teams Public Speaking Teacher Relationship Specialty Start Date End Date Ptarice Lombardi V, DO [address] [place] [address] PCP - General Family Medicine 08/10/12 04/24/14 Garett Holt MD [address] [place] [address] Internal Medicine-Gastroenterology 12/22/12 documented as of this encounter
--- OUTSIDE RECORDS SUMMARY | 2024-07-22 16:20 | XMS_ITS | Encounter Summary ---
Author [place] [address] Care Team Providers Care Maternal Child Nurse Name Role Phone Harjit Orellana DO Viral Primary Care Provider Reason for Visit * Reason Onset Date Comments Other 10/30/2012 Encounter Details Date Type Department Care Team (Late st Contact Info) Description 10/30/2012 Telephone [facility] [address] [place] [address] LombardiPatrice dumont V, DO [address] [place] [address] Other Social History Tobacco Use Types [...] * Telephone Encounter - Eunice Rosa - 10/30/2012 3:44 PM EST Marivela called today needing to know facility that patient was to have MRI shoulder - I called them back and it was authorized 10/30/2012 through 11/01/2012 - contacted patient and then found out this was done on 10/15/12 documented in this encounter Plan of Treatment Upcoming Encounters Date Type Department Care Team (Late st Contact Info) Description 07/29/2024 9:00 AM EST Appointment [facility] [address] [place] [address] Jomar Kim MD [address] [place] [address] documented as of this encounter Visit Diagnoses Not on filedocumented in this encounter Care Teams Maternal Child Nurse Relationship Specialty Start Date End Date Patrice Lombardi DO [address] [place] [phone] PCP - General Family Medicine 08/10/12 04/24/14 documented as of this encounter
--- OUTSIDE RECORDS SUMMARY | 2024-07-22 16:20 | XMS_ITS | Encounter Summary ---
Author Organization [place] [address] Care Team Providers Care Forming Machine Upkeep Mechanic Helper Name Role Phone Unavailable Primary Care Provider Unavailabl e Encounter Details Date Type Department Care Team (Latest Contact Info) Description 07/08/2012 4:15 PM EDT - 07/08/2012 11:59 PM EDT Hospital Encounter [facility] [address] [facility] [place] [address] Patrice Lombardi V, DO [address] [place] [phone] Other screening mammogram Discharge Disposition: Home or Self Care Social [...] Notes * Miscellaneous - Unknown, Unknown - 07/08/2012 4:17 PM EDT * Miscellaneous - Unknown, Unknown - 07/08/2012 4:17 PM EDT documented in this encounter Plan of Treatment Upcoming Encounters Date Type Department Care Team (Late st Contact Info) Description 07/29/2024 9:00 AM EST Appointment [facility] [address] [place], [place] [phone] Jomar Kim MD [address] [place], [place] [id number] documented as of this encounter Procedures Procedure Name Priority Date/Time Associated Diagnosis Comments MM MAMMO DIGITAL SCREENING W CAD BILAT Routine 07/08/2012 4:38 PM EDT Other screening mammogram documented in this encounter Results * MM MAMMO DIGITAL SCREENING W CAD BILAT (07/08/2012 4:38 PM EDT) Anatomical Region Laterality Modality Breast Bilateral Mammography 07/10/2012 7:44 AM EDT Impressions 07/10/2012 8:22 AM EDT : No radiographic evidence of malignancy ([id number]) ~ RECOMMENDATION: Routine screening mammogram in 1 [...] ~ IMPRESSION: No radiographic evidence of malignancy ([id number]) ~ RECOMMENDATION: Routine screening mammogram in 1 [...] DO IMG MAMMOGRAPHY ORDERABLES Fin al Result documented in this encounter Visit Diagnoses Diagnosis Other screening mammogram documented in this encounter
--- OUTSIDE RECORDS SUMMARY | 2024-07-22 16:20 | XMS_ITS | Encounter Summary ---
Author Organization [place] [address] Care Team Providers Care Hoop Coiler Name Role Phone Lombardi V, DO, Viral Primary Care Provider [phone] Reason for Visit * Reason Onset Date Comments Other 08/21/2012 referral-Dr Briana hunter Encounter Details Date Type Department Care Team (Late st Contact Info) Description 08/21/2012 Telephone [facility] [address] [place] [address] Lombardi, Viral V, DO [address] [place] [address] Other (referral-Dr Stokes) Social History Tobacco Use Types Packs/Day Years [...] * Telephone Encounter - Katherine Hallman - 08/21/2012 10:44 AM EST LM regarding referral to Dr Stokes documented in this encounter Plan of Treatment Upcoming Encounters Date Type Department Care Team (Late st Contact Info) Description 07/29/2024 9:00 AM EST Appointment [facility] [address] [place] [address] Jomar Kim MD [address] [place] [address] documented as of this encounter Visit Diagnoses Not on filedocumented in this encounter Care Teams Hoop Coiler Relationship Specialty Start Date End Date Patrice Lombardi V, DO [address] [place] [phone] PCP - General Family Medicine 08/10/12 04/24/14 documented as of this encounter
--- OUTSIDE RECORDS SUMMARY | 2024-07-22 16:20 | XMS_ITS | Encounter Summary ---
Author Organization [place] [address] Care Team Providers Care Anthropology Professor Name Role Phone Harjit Orellana DO, Viral Primary Care Provider [phone] Encounter Details Date Type Department Care Team (Latest Contact Info) Description 08/18/2012 11:08 AM EST - 08/18/2012 11:59 PM [facility] Hospital Encounter [facility] [address] [place] [id number] Patrice Lombardi DO [address] [place] [phone] Left shoulder strain; Osteoarthrosis, unspecified whether generalized or localized, unspecified [...] this encounter Medications at Time of Discharge methylPREDNISolon e (MEDROL DOSPACK) 4 mg tabletIndications :Left shoulder strain,Osteoarthr osis, unspecified whether generalized or localized, unspecified site See package instructions 21 Tab 0 08/10/2012 2 omeprazole (PRILOSEC) 20 mgIndications:ROSY D (gastroesophageal reflux disease) Take 1 Cap by mouth daily for 90 days. 90 Cap 1 08/10/2012 3 documented as of this encounter Discharge Disposition Disposition Code Departure Means Destination Home or Self Care documented in this encounter Miscellaneous Notes * Miscellaneous - Unknown, Unknown - 08/18/2012 11:11 AM EST * Miscellaneous - Unknown, Unknown - 08/18/2012 11:11 AM EST documented in this encounter Plan of Treatment Upcoming Encounters Date Type Department Care Team (Late st Contact Info) Description 07/29/2024 9:00 AM EST Appointment [facility] [address] [place] [address] Jomar Kim MD [address] [place] [address] documented as of this encounter Procedures Procedure Name Priority Date/Time Associated Diagnosis Comments XR SHOULDER LEFT 4 VIEWS Routine 08/18/2012 11:27 AM EST Left shoulder strain Osteoarthrosis, unspecified whether generalized or localized, unspecified site documented in this encounter Results * XR SHOULDER LEFT 4 VIEWS (08/18/2012 11:27 AM EST) Anatomical Region Laterality Modality Shoulder Radiographic Faby ging 08/18/2012 Impressions 08/18/2012 12:42 PM EST IMPRESSION: No fracture, dislocation or other significant abnormality demonstrated. Narrative 08/18/2012 12:42 PM EST FOUR VIEW LEFT SHOULDER, 08/18/2012 HISTORY: Trauma, pain. Procedure Note Tank Jamil MD - 08/18/2012 FOUR VIEW LEFT SHOULDER, 08/18/2012 HISTORY: Trauma, pain. IMPRESSION: No fracture, dislocation or other significant abnormalitydemonstrated. us Viral Harjit Orellana DO IMG DIAGNOSTIC IMAGING ORDERAB LES Final Result documented in this encounter Visit Diagnoses Diagnosis Left shoulder strain Sprain and strain of unspecified site of shoulder and upper arm Osteoarthrosis, unspecified whether generalized or localized, unspecified site documented in this encounter Care Teams Anthropology Professor Relationship Specialty Start Date End Date Patrice Lombardi DO [address] [place] [phone] PCP - General Family Medicine 08/10/12 04/24/14 documented as of this encounter
--- OUTSIDE RECORDS SUMMARY | 2024-07-22 16:20 | XMS_ITS | Encounter Summary ---
Author Organization [place] Address [address] [facility] [place] [address] Care Team Providers Care Buttermaker Continuous Churn Name Role Phone Harjit Orellana DO, Viral Primary Care Provider [phone] Encounter Details Date Type Department Care Team (Latest Contact Info) Description 10/20/2012 11:08 AM EST - 10/20/2012 11:59 PM [facility] Hospital Encounter [facility] [place] [address] Sinusitis (Primary Dx); Epistaxis; Esophageal reflux Discharge Disposition: Home or Self [...] this encounter Medications at Time of Discharge cyclobenzaprine (FLEXERIL) 5 mg tablet Take 1 Tab by mouth every 8 hours as needed for Muscle spasms for 90 days. 30 Tab 1 08/19/2012 11/17/2012 naproxen (NAPROSYN) 375 mg tabletIndications :Left shoulder strain,Muscle spasm Take 1 Tab by mouth 2 times daily (with meals) for 90 days. 60 Tab 2 08/19/2012 11/17/2012 omeprazole (PRILOSEC) 20 mgIndications:ROSY D (gastroesophageal reflux disease) Take 1 Cap by mouth daily for 90 days. 90 Cap 1 08/10/2012 11/08/2012 documented as of this encounter Discharge Disposition Disposition Code Departure Means Destination Home or Self Care documented in this encounter Miscellaneous Notes * Miscellaneous - Unknown, Unknown - 10/20/2012 11:36 AM EST * Miscellaneous - Unknown, Unknown - 10/20/2012 11:09 AM EST * Miscellaneous - Unknown, Unknown - 10/20/2012 11:07 AM EST documented in this encounter Plan of Treatment Upcoming Encounters Date Type Department Care Team (Late st Contact Info) Description 07/29/2024 9:00 AM EST Appointment [facility] [address] [place], [place] [phone] Jomar Kim MD [address] [place] [address] Scheduled Orders Name Type Priority Associated Diagnoses Orde r Schedule OP VENIPUNCTURE CHARGE Lab Timed Sinusitis Epistaxis Esophageal reflux One Time for 1 Occurrences starting 10/20/2012 until 10/20/2012 documented as of this encounter Procedures Procedure Name Priority Date/Time Associated Diagnosis Comments CBC Routine 10/20/2012 11:15 AM EST Epistaxis Esophageal reflux HEMOGLOBIN A1C Routine 10/20/2012 11:15 AM EST Sinusitis Epistaxis BASIC METABOLIC PANEL Routine 10/20/2012 11:15 AM EST Sinusitis Epistaxis documented in this encounter Results * HEMOGLOBIN A1C (10/20/2012 11:15 AM EST) Hgb A1c 6.0 <=7.0 % [facility] Comment: Initial Diagnostic Criteria < 5.7 % ?Normal 5.7 - 6.4 % ? At risk for diabetes mellitus >= 6.5 % ?Consistent with diabetes mellitus Diabetes monitoring Target Value (ADA recommended): ?< 7 % Blood specimen (specimen) UPPER LIMB STRUCTURE / Unknown 10/20/2012 11:15 AM EST 10/20/2012 11:19 AM EST us Viral Lombardi V, DO CHEMISTRY ORDERABLES Final Res ult Performing Organization Address [facility] Co de Phone Number [facility] [address] [place] [address] * (ABNORMAL) CBC (10/20/2012 11:15 AM EST) Pathologist [facility] WBC 8.3 4.0 - 11.0 x10(3)/mcL [facility] RBC 4.08 4.00 - 5.10 x10(6)/mcL [facility] Hgb 11.3(L) 12.0 - 15.7 gm/dL [facility] Hct 34.5(L) 36.0 - 45.9 % [facility] MCV 84.7 80.0 - 95.8 fL [facility] MCH 27.6 27.0 - 33.2 pg [facility] MCHC 32.6(L) 33.0 - 36.0 gm/dL [facility] RDW 14.8(H) 11.5 - 14.5 % [facility] Platelet 265 150 - 400 x10(3)/mcL [facility] MPV 8.2 7.0 - 12.0 fL [facility] Blood specimen (specimen) UPPER LIMB STRUCTURE / Unknown 10/20/2012 11:15 AM EST 10/20/2012 11:19 AM EST us Viral Lombardi V, DO HEMATOLOGY ORDERABLES Final Re sult Performing Organization Address [facility] Co de Phone Number [facility] [address] [place] [address] * BASIC METABOLIC PANEL (10/20/2012 11:15 AM EST) Sodium 143 135 - 143 mmol/L [facility] Potassium 4.2 3.5 - 5.0 mmol/L [facility] Chloride 104 98 - 108 mmol/L [facility] Total CO2 29 22 - 31 mmol/L [facility] Anion Gap 10 7 - 16 mmol/L [facility] Calcium 9.2 8.6 - 10.3 mg/dL [facility] Glucose Lvl 95 70 - 100 mg/dL [facility] BUN 13 7 - 19 mg/dL [facility] Creatinine 0.6 0.6 - 1.0 mg/dL [facility] GFR Afr Am >60 [facility] Comment: GFR is estimated using [...] or less GFR Non Afr Am >60 [facility] Blood specimen (specimen) UPPER LIMB STRUCTURE / Unknown 10/20/2012 11:15 AM EST 10/20/2012 11:19 AM EST us Viral Harjit Orellana DO CHEMISTRY ORDERABLES Final Res ult Performing Organization Address City/State/[facility] Co de Phone Number [facility] [address] [place] [address] documented in this encounter Visit Diagnoses Diagnosis Sinusitis- Primary Unspecified sinusitis (chronic) Epistaxis Esophageal reflux documented in this encounter Care Teams Buttermaker Continuous Churn Relationship Specialty Start Date End Date Patrice Lombardi DO [address] [place] [phone] PCP - General Family Medicine 08/10/12 04/24/14 documented as of this encounter
--- OUTSIDE RECORDS SUMMARY | 2024-07-22 16:20 | XMS_ITS | Encounter Summary ---
Author Organization [place] [address] Care Team Providers Care Business Systems Administrator Name Role Phone Harjit Orellana DO, Viral Primary Care Provider [phone] Encounter Details Date Type Department Care Team (Late st Contact Info) Description 10/23/2012 Orders Only [facility] [address] [place] [address] Alexis JarochoJOSE MANUEL biswas [address] [place] [address] Iron deficiency (Primary Dx) Social History Tobacco Use Types [...] Cap by mouth daily. 30 Cap 5 10/23/2012 3 documented in this encounter Plan of Treatment Upcoming Encounters Date Type Department Care Team (Late st Contact Info) Description 07/29/2024 9:00 AM EST Appointment [facility] [address] [place] [address] Jomar Kim MD [address] [place] [address] documented as of this encounter Visit Diagnoses Diagnosis Iron deficiency- Primary Other disorders of iron metabolism documented in this encounter Care Teams Business Systems Administrator Relationship Specialty Start Date End Date Patrice Lombardi DO [address] [place] [phone] PCP - General Family Medicine 08/10/12 04/24/14 documented as of this encounter
--- OUTSIDE RECORDS SUMMARY | 2024-07-22 16:20 | XMS_ITS | Encounter Summary ---
Author Organization [facility] [address] Care Team Providers Care Shaper Operator Name Role Phone Harjit Orellana DO, Viral Primary Care Provider [phone] Reason for Referral * Surgical (Routine) - Closed Specialty Diagnoses / Procedures Referred By Ron bansal Referred To Contact Orthopaedic Surgery Diagnoses Tendonitis of shoulder, left Procedures pt given scheduling sheet Patrice Lombardi DO [address] [place] [address] Phone: tel: fax: Jean Claude Dexter MD [address] [place] [address] Phone: tel: fax: Referral ID Status Reason Start Date Expiration Date Visits Re quested Visits Authorized [id number] Closed 10/05/2012 04/03/2013 12 12 Reason for Visit * Reason Comments Bleeding/Bruising nose bleeding this a m when bent over Dysuria x2 months getting wo rse Leg Pain left leg Shoulder Pain left arm still havin g pain had mri done Spasms occasionally in bila teral legs Encounter Details Date Type Department Care Team (Late st Contact Info) Description 10/05/2012 11:20 AM EST Office Visit [facility] [address] [place] [address] Patrice Lombardi V, DO [address] [place] [address] Tendonitis of shoulder, left (Primary Dx); Dysuria; Sinusitis; Epistaxis; Esophageal reflux Social History Tobacco Use Types Packs/Day Years [...] Reading Time Taken Comments Blood Pressure 120/72 10/05/2012 11:55 AM EST Pulse 76 10/05/2012 11:55 AM EST Temperature 36.4 ??C (97.5 ??F) 10/05/2012 11:[address] Respiratory Rate - - Oxygen Saturation - - Inhaled Oxygen Concentration - - Weight 124 kg (273 lb 6.4 oz) 10/05/2012 11:55 A M EST Height 153.7 cm (5' 0.5 ) 10/05/2012 11:55 AM ES T Body Mass Index 52.52 10/05/2012 11:55 AM EST documented in this encounter Ordered Prescriptions Prescription Sig Dispense Quantity Refills Last Filled Start Date End Date amoxicillin (AMOXIL) 875 mg tabletIndications:S inusitis,Epistaxis Take 1 Tab by mouth 2 times daily for 10 days. 20 Tab 0 10/05/2012 10/15/2012 documented in this encounter Progress Notes * Patrice Lombardi V, DO - 10/05/2012 11:57 AM EST Subjective: Patient ID: Alyssa Jamil is a 57 y.o. female. Bleeding/Bruising The incident occurred 1 to 3 hours ago. The incident occurred at home. The injury mechanism is unknown. She is experiencing no pain. Associated symptoms include nausea. Pertinent negatives include nochest pain, inability to bear weight or vomiting. Dysuria This is a new problem. The current episode started more than 1 month ago. The problem has been gradually worsening. The quality of the pain is described as burning. The pain is moderate. Associated symptoms include frequency, hematuria and nausea. Pertinent negatives include no vomiting. She has tried nothing for the symptoms. Leg Pain The pain is present in the left upper leg and left lower leg. This is a new problem. The current episode started in the past 7 days. There has been no history of extremity trauma. The problem occurs daily. The problem has been gradually worsening. The quality of the pain is described as burning andaching. The pain is moderate. Associated symptoms include joint swelling and a limited range of motion. Pertinent negatives include no fever or inability to bear weight. She has tried nothing for thesymptoms. Shoulder Pain The pain is present in the left shoulder. This is a recurrent problem. There has been a history of trauma. The problem occurs daily. The quality of the pain is described as aching and burning. The pain is moderate. Associated symptoms include joint swelling and a limited range of motion. Pertinent negatives include no fever or inability to bear weight. Treatments tried: aspirin. Spasms This is a new problem. The current episode started more than 2 weeks ago. The problem occurs frequently. The problem has been unchanged. Site of pain is localized in muscle. The pain is severe. Associated symptoms include nausea, dysuria and hematuria. Pertinent negatives include no chest pain, no diarrhea and no vomiting. Patients past medical, family and social histories were reviewed and updated. There were no changesexcept as noted. Review of Systems Constitutional: Negative. Negative for fever. Eyes: Negative. Respiratory: Negative. Negative for shortness of breath. Cardiovascular: Negative. Negative for chest pain. Gastrointestinal: Positive for nausea. Negative for vomiting and diarrhea. Genitourinary: Positive for dysuria, frequency and hematuria. Musculoskeletal: Positive for muscle spasms. Objective: Filed Vitals: 10/05/12 1155 BP: 120/72 Pulse: 76 Temp: 97.5 ??F (36.4 ??C) TempSrc: Oral Height: 5' 0.5 (1.537 m) Weight: 273 lb 6.4 oz (124.013 kg) Body mass index is 52.52 kg/(m^2). Physical Exam Vitals reviewed. Constitutional: She [...] sounds are normal. Musculoskeletal: She exhibits tenderness. Left shoulder: She exhibits decreased range of motion, tenderness, pain and spasm. Neurological: She is alert and oriented to person, place, and time. Skin: Skin is warm. Assessment and Plan: Alyssa was seen today for bleeding/bruising, dysuria, leg pain, shoulder pain and spasms. Diagnoses and associated orders for this visit: Tendonitis of shoulder, left - Orthopedic Surgery Dysuria - POCT urinalysis dipstick automated Sinusitis - amoxicillin (AMOXIL) 875 mg tablet; Take 1 Tab by mouth 2 times daily for 10 days. - Basic Metabolic Panel; Future - Hemoglobin A1c; Future Epistaxis - amoxicillin (AMOXIL) 875 mg tablet; Take 1 Tab by mouth 2 times daily for 10 days. - CBC; Future - Basic Metabolic Panel; Future - Hemoglobin A1c; Future Esophageal reflux - CBC; Future documented in this encounter Consult Notes * Unknown, Unknown - 10/28/2012 12:00 AM EST documented in this encounter Miscellaneous Notes * Patient Instructions - Luiza Espinoza MA - 10/05/2012 12:01 PM EST Images from the original note were not included. Shoulder Pain You have been seen today with shoulder pain. The shoulder is a ball and socket joint. The muscles and tendons (rotator cuff) are what keep the shoulder in its joint and stable. This collection of muscles and tendons holds in the head (ball) of the humerus (upper arm bone) in the fossa (cup) of the scapula (shoulder blade). Today no reason was found for your shoulder pain. Often pain in the shoulder may be treated conservatively with temporary immobilization. For example, holding the shoulder inone place using a sling and rest. Physical therapy may be needed if problems continue. HOME CARE INSTRUCTIONS ?? Apply ice to the sore area for 15 to 20 minutes 3 to 4 times per day for the first 2 days. Put the ice in a plastic bag. Place a towel between the bag of ice and your skin. ?? If you have or were given a shoulder sling and straps, do not remove until you see a caregiver for a follow-up examination. If you need to remove it to shower or bathe, move your arm as little as possible. ?? You may want to sleep on several pillows at night to lessen swelling and pain. ?? Only take oacg-rdw-aykewwt or prescription medicines for pain, discomfort, or fever as directed by your caregiver. ?? It is very important to keep any follow-up appointments in order to avoid any type of permanent shoulder disability or chronic pain problems. SEEK MEDICAL CARE IF: ?? Pain in your shoulder increases or new pain develops in your arm, hand, or fingers. ?? Your hand or fingers are colder than your other hand. ?? You do not obtain pain relief with the medications or your pain becomes worse. SEEK IMMEDIATE MEDICAL CARE IF: ?? Your arm, hand, or fingers are numb or tingling. ?? Your arm, hand, or fingers are swollen, painful, or turn white or blue. ?? You develop chest pain or shortness of breath. MAKE SURE YOU: ?? Understand these instructions. ?? Will watch your condition. ?? Will get help right away if you are not doing well or get worse. Document Released: 06/04/2006 Document Re-Released: 11/21/2009 [employer]Care?? Patient Information ??2009 [employer] documented in this encounter Plan of Treatment Upcoming Encounters Date Type Department Care Team (Late st Contact Info) Description 07/29/2024 9:00 AM EST Appointment [facility] [address] [place] [address] Jomar Kim MD [address] [place] [address] (work) Scheduled Referrals Name Type Priority Associated Diagnoses Order Schedule AMB REFERRAL TO ORTHOPEDIC SURGERY Outpatient Referral Routine Tendonitis of shoulder, left Ordered: 10/05/2012 documented as of this encounter Procedures Procedure Name Priority Date/Time Associated Diagnosis Comments POCT URINALYSIS AUTOMATED Routine 10/05/2012 12:16 PM EST Dysuria documented in this encounter Results * HEMOGLOBIN A1C (10/20/2012 11:15 AM EST) Hgb A1c 6.0 <=7.0 % [facility] Comment: Initial Diagnostic Criteria < 5.7 % ?Normal 5.7 - 6.4 % ? At risk for diabetes mellitus >= 6.5 % ?Consistent with diabetes mellitus Diabetes monitoring Target Value (ADA recommended): ?< 7 % Blood specimen (specimen) UPPER LIMB STRUCTURE / Unknown 10/20/2012 11:15 AM EST 10/20/2012 11:19 AM EST us Viral Lombardi V, DO CHEMISTRY ORDERABLES Final Res ult [facility] [address] [place] [address] * BASIC METABOLIC PANEL (10/20/2012 11:15 AM EST) Sodium 143 135 - 143 mmol/L [facility] Potassium 4.2 3.5 - 5.0 mmol/L [facility] Chloride 104 98 - 108 mmol/L [facility] Total CO2 29 22 - 31 mmol/L [facility] Anion Gap 10 7 - 16 mmol/L [facility] Calcium 9.2 8.6 - 10.3 mg/dL [facility] Glucose Lvl 95 70 - 100 mg/dL [facility] BUN 13 7 - 19 mg/dL [facility] Creatinine 0.6 0.6 - 1.0 mg/dL [facility] GFR Afr Am [...] V, DO CHEMISTRY ORDERABLES Final Res ult [facility] [address] [place] [address] * (ABNORMAL) CBC (10/20/2012 11:15 AM EST) WBC 8.3 4.0 - 11.0 x10(3)/mcL [facility] RBC 4.08 4.00 - 5.10 x10(6)/mcL [facility] Hgb 11.3(L) 12.0 - 15.7 gm/dL [facility] Hct 34.5(L) 36.0 - 45.9 % [facility] MCV 84.7 80.0 - 95.8 fL [facility] MCH 27.6 27.0 - 33.2 pg [facility] MCHC 32.6(L) 33.0 - 36.0 gm/dL [facility] RDW 14.8(H) 11.5 - 14.5 % [facility] Platelet 265 150 - 400 x10(3)/mcL [facility] MPV 8.2 7.0 - 12.0 fL [facility] Blood specimen (specimen) UPPER LIMB STRUCTURE / Unknown 10/20/2012 11:15 AM EST 10/20/2012 11:19 AM EST us Viral Lombardi V, DO HEMATOLOGY ORDERABLES Final Re sult Performing Organization Address [facility] Co de Phone Number [facility] [address] [place] [address] * POCT URINALYSIS AUTOMATED (10/05/2012 12:16 PM EST) Color, UA yellow Clear, Yellow, Sturgeon, Rust [facility] Clarity, UA clear Clear, Cloudy [facility] Glucose, UA neg g/dl% [facility] Bilirubin, UA neg Pos/Neg [facility] Ketones, UA neg Pos/Neg SEP generator switchboard operator Grav, UA 1.010 1.001 - 1.035 g/dl [facility] Blood, UA neg Pos/Neg [facility] pH, UA 7 5.0 - 8 [facility] Protein, UA neg Pos/Neg [facility] Urobilinogen, UA norm 0.2 - 1.0 mg/dL [facility] Leukocytes, UA neg Pos/Neg [facility] Nitrite, UA neg Pos/Neg [facility] Appear BF Clear, Slightly Cloudy Clear, Cloudy [facility] Lot Number SEP OFFICE Expiration Date [facility]P OFFICE SeriAl # SEP OFFICE Urine specimen (specimen) 10/05/2012 12:16 PM EST us Viral Lombardi V, DO POINT OF CARE TEST ORDERABLES Final Result Performing Organization Address City/[facility]/ZIP Co de Phone Number [facility] OFF[facility] documented in this encounter Visit Diagnoses Diagnosis Tendonitis of shoulder, left- Primary Disorders of bursae and tendons in shoulder region, unspecified Dysuria Sinusitis Unspecified sinusitis (chronic) Epistaxis Esophageal reflux documented in this encounter Care Teams Shaper Operator Relationship Specialty Start Date End Date Patrice Lombardi DO [address] [place] [address] PCP - General Family Medicine 08/10/12 04/24/14 documented as of this encounter
--- OUTSIDE RECORDS SUMMARY | 2024-07-22 16:20 | XMS_ITS | Encounter Summary ---
Author Organization [place] [address] Care Team Providers Care Auto Body Shop Manager Name Role Phone Unavailable Primary Care Provider Unavailabl e Encounter Details Date Type Department Care Team (Latest Contact Info) Description 07/05/2011 1:15 PM EDT - 07/05/2011 11:59 PM EDT Hospital Encounter [facility] [address], [place]. [place], [place] [id number] Epistaxis Discharge Disposition: Home or Self Care Social [...] 9:00 AM EST Appointment [facility] [address] [place] [address] Jomar Kim MD [address] [facility] [place] [address] Scheduled Orders Name Type Priority Associated Diagnoses Orde r Schedule OP VENIPUNCTURE CHARGE Lab Timed Epistaxis One Time for 1 Occurrences starting 07/05/2011 until 07/05/2011 documented as of this encounter Visit Diagnoses Diagnosis Epistaxis documented in this encounter
--- OUTSIDE RECORDS SUMMARY | 2024-07-22 16:20 | XMS_ITS | Encounter Summary ---
Author Organization [place] [address] Care Team Providers Care Starch Crab Name Role Phone Harjit Orellana DO, Viral Primary Care Provider [phone] Encounter Details Date Type Department Care Team (Latest Contact Info) Description 12/01/2012 8:45 PM EDT - 12/01/2012 11:59 PM EDT Hospital Encounter [facility] [place]an [id number] Hematuria Discharge Disposition: Home or Self Care [...] Medications at Time of Discharge nystatin (MYCOSTATIN) 100,000 unit/mL suspensionIndicat ions:Aphthous ulcer Take 10 mL by mouth 4 times daily for 7 days. 280 mL 0 12/01/2012 12/08/2012 documented as of this encounter Discharge Disposition Disposition Code Departure Means Destination Home or Self Care documented in this encounter Miscellaneous Notes * Miscellaneous - Unknown, Unknown - 12/01/2012 9:00 PM EDT documented in this encounter Plan of Treatment Upcoming Encounters Date Type Department Care Team (Late st Contact Info) Description 07/29/2024 9:00 AM EST Appointment [facility] [address] [place] [address] Jomar Kim MD [address] [place] [address] documented as of this encounter Procedures Procedure Name Priority Date/Time Associated Diagnosis Comments URINE CULTURE (NO STAIN) Routine 12/01/2012 3:12 PM EDT Hematuria documented in this encounter Results * URINE CULTURE (12/01/2012 3:12 PM EDT) Final No growth at 2 days. [facility] Urine specimen (specimen) 12/01/2012 3:12 PM EDT 12/01/2012 9:14 PM EDT us Annalise Oneill MD MICROBIOLOGY - GENERAL ORDERA BLES Final Result Performing Organization Address City/State/[facility] Co de Phone Number [facility] [address] [place] [address] documented in this encounter Visit Diagnoses Diagnosis Hematuria Hematuria, unspecified documented in this encounter Care Teams Starch Crab Relationship Specialty Start Date End Date Harjit Viral V, DO [address] [place] [phone] PCP - General Family Medicine 08/10/12 04/24/14 documented as of this encounter
--- OUTSIDE RECORDS SUMMARY | 2024-07-22 16:20 | XMS_ITS | Encounter Summary ---
Author Organization [place] [address] Care Team Providers Care Specialist Physicians Name Role Phone Harjit Orellana DO, Viral Primary Care Provider [phone] Reason for Visit * Reason Onset Date Comments Other 08/18/2012 left shoulder x- ray Encounter Details Date Type Department Care Team (Late st Contact Info) Description 08/18/2012 Telephone [facility] [address] [place] [address] Lombardi, Viral V, DO [address] [place] [address] Other (left shoulder x-ray) Social History Tobacco Use Types Packs/Day Years [...] * Telephone Encounter - Katherine Hallman - 08/18/2012 8:35 AM EST Patient is to be getting left shoulder x-ray today documented in this encounter Plan of Treatment Upcoming Encounters Date Type Department Care Team (Late st Contact Info) Description 07/29/2024 9:00 AM EST Appointment [facility] [address] [place] [address] Jomar Kim MD [address] [place] [address] documented as of this encounter Visit Diagnoses Not on filedocumented in this encounter Care Teams Specialist Physicians Relationship Specialty Start Date End Date Patrice Lombardi V, DO [address] [place] [address] PCP - General Family Medicine 08/10/12 04/24/14 documented as of this encounter
--- OUTSIDE RECORDS SUMMARY | 2024-07-22 16:20 | XMS_ITS | Encounter Summary ---
Author Organization [place] [address] Care Team Providers Care Crew Chief Name Role Phone Harjit Orellana DO Viral Primary Care Provider [phone] Reason for Visit * Reason Onset Date Comments Other 10/30/2012 Encounter Details Date Type Department Care Team (Late st Contact Info) Description 10/30/2012 Telephone [facility] [address] [place] [address] LombardiPatrice dumont V, DO [address] [place] [address] Other Social History Tobacco Use [...] Telephone Encounter - Eunice Rosa - 10/30/2012 4:28 PM EST Patient needs retro auth for MRI shoulder done on 09/14/12 - call kitty at [phone] - talked to precert dept with [facility] and we cannot find who initiated this between us but now believe Ortho was who did? Still needs someone to do retro auth for patient documented in this encounter Plan of Treatment Upcoming Encounters Date Type Department Care Team (Late st Contact Info) Description 07/29/2024 9:00 AM EST Appointment [facility] [address] [place] [address] Jomar Kim MD [address] [place] [address] documented as of this encounter Visit Diagnoses Not on filedocumented in this encounter Care Teams Crew Chief Relationship Specialty Start Date End Date Patrice Lombardi V, DO [address] [place] [phone] PCP - General Family Medicine 08/10/12 04/24/14 documented as of this encounter
--- OUTSIDE RECORDS SUMMARY | 2024-07-22 16:20 | XMS_ITS | Encounter Summary ---
Author Organization [place] [address] Care Team Providers Care Improvement Analyst Name Role Phone Harjit Orellana DO, Viral Primary Care Provider [phone] Reason for Referral * Consultation (Routine) - Closed Specialty Diagnoses / Procedures Referred By Ron bansal Referred To Contact Internal Medicine-Gastroenterol ogy Diagnoses Esophageal reflux Anemia pt to schedule Procedures eval and treat Annalise Oneill MD [address] [place] [address] Phone: tel: fax: Garett Holt MD Phone: tel: fax: Referral ID Status Reason Start Date Expiration Date Visits Re quested Visits Authorized [id number] Closed 12/15/2012 06/13/2013 1 12 Reason for Visit * Reason Comments Mouth Lesions blisters on her mout h and tongue 3-4 days, Hematuria x 2 weeks, dysuria, urgency, frequency, no fever, flank pain Encounter Details Date Type Department Care Team (Late st Contact Info) Description 12/01/2012 8:50 AM EDT [facility] [address] [place] [address] Annalise Oneill MD [address] [place] [address] Epigastric pain (Primary Dx); Esophageal reflux; Anemia; Hematuria; Aphthous ulcer; Routine general medical examination at a health care facility Social History Tobacco Use Types Packs/Day Years [...] Reading Time Taken Comments Blood Pressure 120/80 12/01/2012 8:57 AM EDT Pulse 76 12/01/2012 8:57 AM EDT Temperature 36.4 ??C (97.6 ??F) 12/01/2012 8:57 AM ED T Respiratory Rate 12 12/01/2012 8:57 AM EDT Oxygen Saturation - - Inhaled Oxygen Concentration - - Weight 125.2 kg (276 lb) 12/01/2012 8:57 AM EDT Height 165.1 cm (5' 5 ) 12/01/2012 8:57 AM EDT Body Mass Index 45.93 12/01/2012 8:57 AM EDT documented in this encounter Ordered Prescriptions Prescription Sig Dispense Quantity Refills Last Filled Start Date End Date nystatin (MYCOSTATIN) 100,000 unit/mL suspensionIndicatio ns:Aphthous ulcer Take 10 mL by mouth 4 times daily for 7 days. 280 mL 0 12/01/2012 12/08/2012 omeprazole (PRILOSEC) 20 mgIndications:Epiga stric pain,Esophageal reflux Take 1 Cap by mouth daily. 30 Cap 2 12/01/2012 01/06/2013 meloxicam (MOBIC) 15 mg tablet Take 1 Tab by mouth daily. 30 Tab 2 12/01/2012 01/06/2013 nystatin (MYCOSTATIN) 100,000 unit/mL suspensionIndicatio ns:Aphthous ulcer Take 10 mL by mouth 4 times daily for 7 days. 280 mL 0 12/01/2012 12/01/2012 omeprazole (PRILOSEC) 20 mgIndications:Epiga stric pain,Esophageal reflux Take 1 Cap by mouth daily. 30 Cap 2 12/01/2012 12/01/2012 meloxicam (MOBIC) 15 mg tablet Take 1 Tab by mouth daily. 30 Tab 2 12/01/2012 12/01/2012 documented in this encounter Progress Notes * Unknown, Unknown - 12/16/2012 12:00 AM EDT * Aleksandra Kumar RMA - 12/01/2012 9:07 AM EDT Subjective: Patient ID: Alyssa Jamil is a 57 y.o. female. HPI Patients past medical, family and social histories were reviewed and updated. There were no changesexcept as noted. Review of Systems Objective: Filed Vitals: 12/01/12 0857 BP: 120/80 Pulse: 76 Temp: 97.6 ??F (36.4 ??C) TempSrc: Oral Resp: 12 Height: 5' 5 (1.651 m) Weight: 276 lb (125.193 kg) Body mass index is 45.93 kg/(m^2). Physical Exam Assessment and Plan: Alyssa was seen today for mouth lesions and hematuria. Diagnoses and associated orders for this visit: Hematuria - POCT urinalysis dipstick automated - Urine Culture; Future Results for orders placed in visit on 12/01/12 POCT URINALYSIS AUTOMATED Component Value Range Color, UA Clarity, UA Glucose, UA n Bilirubin, UA n Ketones, UA n Spec Grav, UA 1.015 1.001 - 1.035 g/dl Blood, UA n pH, UA 6 5.0 - 8 Protein, UA n Urobilinogen, UA n 0.2 - 1.0 mg/dL Leukocytes, UA n Nitrite, UA n Appear BF Clear, Slightly Cloudy Clear, Cloudy Lot Number Expiration Date SeriAl # * Annalise Oneill MD - 12/01/2012 9:00 AM EDT Subjective: Patient ID: Alyssa Jamil is a 57 y.o. female. HPI Chief Complaint Patient presents with ??? Mouth Lesions blisters on her mouth and tongue 3-4 days, ??? Hematuria x 2 weeks, dysuria, urgency, frequency, no fever, flank pain Patient reports she has seen streaks of blood in her urine. She complains of cramping abdominal pain for the past 3-4 weeks. At times it feels worse. It is greatest in the center of her stomach. It feels like a burning sensation after drinking soda. She occasionally has heartburn She is on iron for anemia. SHe is past due for colonoscopy. She complains of burning sensation on her tongue when drinking sodas. Present for the past 4-5 days Patients past medical, family and social histories were reviewed and updated. There were no changesexcept as noted. Review of Systems Constitutional: Positive for fatigue. Negative for fever. HENT: Positive for sneezing and mouth sores (blisters in her mouth and tongue). Gastrointestinal: Positive for abdominal pain. Negative for nausea, vomiting and blood in stool. Genitourinary: Positive for dysuria, urgency, frequency, hematuria and flank pain. Musculoskeletal: Positive for myalgias, back pain and gait problem. Neurological: Positive for dizziness. Objective: Filed Vitals: 12/01/12 0857 BP: 120/80 Pulse: 76 Temp: 97.6 ??F (36.4 ??C) TempSrc: Oral Resp: 12 Height: 5' 5 (1.651 m) Weight: 276 lb (125.193 kg) Body mass index is 45.93 kg/(m^2). Physical Exam Vitals reviewed. Constitutional: She is oriented to person, place, and time. She appears well- developed and well-nourished. HENT: Right lateral edge of tongue 3 mm shallow ulceration Eyes: Conjunctivae are normal. Pupils are equal, round, and reactive to light. Neck: Normal range of motion. Neck supple. No thyromegaly present. Cardiovascular: Normal rate, regular rhythm, normal heart sounds and intact distal pulses. No carotid bruits. Pulmonary/Chest: Effort normal and breath sounds normal. Abdominal: Soft. Bowel sounds are normal. She exhibits no mass. There is tenderness (epigastric). Neurological: She is alert and oriented to person, place, and time. She has normal reflexes. Skin: Skin is warm and dry. Psychiatric: She has a normal mood and affect. Judgment normal. Results for orders placed in visit on 12/01/12 POCT URINALYSIS AUTOMATED Component Value Range Color, UA Clarity, UA Glucose, UA n Bilirubin, UA n Ketones, UA n Spec Grav, UA 1.015 1.001 - 1.035 g/dl Blood, UA n pH, UA 6 5.0 - 8 Protein, UA n Urobilinogen, UA n 0.2 - 1.0 mg/dL Leukocytes, UA n Nitrite, UA n Appear BF Clear, Slightly Cloudy Clear, Cloudy Lot Number Expiration Date SeriAl # Assessment and Plan: Alyssa was seen today for mouth lesions and hematuria. Diagnoses and associated orders for this visit: Epigastric pain - omeprazole (PRILOSEC) 20 mg; Take 1 Cap by mouth daily. Esophageal reflux - omeprazole (PRILOSEC) 20 mg; Take 1 Cap by mouth daily. - Gastroenterology Anemia - Gastroenterology Hematuria Not present today Aphthous ulcer - nystatin (MYCOSTATIN) 100,000 unit/mL suspension; Take 10 mL by mouth 4 times daily for 7 days. Patient advised that she needs to have work up to exclude GI Bleeding given persistent nsaid use and anemia. Start PPI. Colorectal cards given Referral for sreening colonoscopy documented in this encounter Miscellaneous Notes * Addendum Note - Philipp Hopkins MA - 12/15/2012 2:01 PM EDTAddended by: PHILIPP HOPKINS on: 12/15/2012 02:01 PM Modules accepted: Orders * Addendum Note - Tori Chase MA - 12/09/2012 1:30 PM EDTAddended by: TORI CHASE on: 12/09/2012 01:30 PM Modules accepted: Orders * Patient Instructions - Annalise Oneill MD - 12/01/2012 9:26 AM EDT Images from the original note were not included. Acid Reflux (GERD) Acid reflux is also known as Gastroesophageal Reflux Disease (GERD). Acid reflux happens when liquid in your stomach goes up the tube between your mouth and stomach (esophagus). Your stomach makes acid to help digest food. Your stomach is protected from the acid, but your esophagus is not. When acid gets into the esophagus, it may cause a burning feeling (heartburn). Besides heartburn, other health problems can happen if the acid keeps going into the esophagus. HOME CARE ?? Your doctor may give you medicine to help the Acid Reflux. ?? You may have to: l Lose weight. l Avoid alcohol. l Quit smoking. ?? Do not eat big meals. ?? Do not eat a meal and then go to bed or take a nap. ?? Sleep with your head higher than your stomach. ?? Avoid foods that bother you. ?? You may need tests and have to see a special doctor. CAUSES ?? Being overweight. ?? Smoking. ?? Alcohol. ?? Eating meals and then going to bed right away. ?? Eating certain foods. ?? Increase in stomach acid production. GET HELP RIGHT AWAY IF: ?? You have chest pain that is different than before. ?? You have pain that goes to your arms, jaw or between your shoulder blades. ?? You throw up (vomit) blood, dark brown liquid or your vomit looks like coffee grounds . ?? You have trouble swallowing. ?? You are having trouble breathing or cannot stop coughing. ?? You feel dizzy or pass out. ?? Your skin is cool, wet and pale. ?? Medicine is not helping. MAKE SURE YOU: ?? Understand these instructions. ?? Will watch your condition. ?? Will get help right away if you are not doing well or get worse. Document Released: 02/10/2009 Document Re-Released: 08/07/2009 ExitCare?? Patient Information ??2009 [employer].Anemia - Iron Deficiency You have anemia (low blood hemoglobin) from an iron deficiency. In infants and children, this condition is usually due to a lack of iron in the diet (there is very little iron in milk). In adults, itis most often due to blood loss. This may be from heavy periods, intestinal bleeding, or .It is important to find the cause of the anemia. Testing for hidden blood in the stool and special colon exams are often helpful. Iron-deficiency is treated with oral iron supplements 2-3 times daily. Iron pills should be taken until blood tests show the hemoglobin (blood) level is normal. Iron supplements may upset your stomach. They can also cause constipation and dark stools. Iron supplements should be taken with a juice high in vitamin-C (orange juice or tomato juice). This increases their absorption. Taking them with food will decrease stomach upset. You may also increase your dietary iron by eating: ?? Liver, canned oysters and lean beef. ?? Wheat germ, whole grain breads and cereals, peas, and lentils. ?? Molasses, dried prunes, spinach, and broccoli. SEE YOUR CAREGIVER FOR FOLLOW UP SUGGESTED. Document Released: 10/02/2005 ExitCare?? Patient Information ??2009 [employer]. documented in this encounter Plan of Treatment Upcoming Encounters Date Type Department Care Team (Late st Contact Info) Description 07/29/2024 9:00 AM EST Appointment [facility] [address] [place] [address] Jomar Kim MD [address] [place] [address] Scheduled Referrals Name Type Priority Associated Diagnoses Order Schedule AMB REFERRAL TO GASTROENTEROLOGY Outpatient Referral Routine Esophageal reflux Anemia Ordered: 12/01/2012 documented as of this encounter Procedures Procedure Name Priority Date/Time Associated Diagnosis Comments POCT HEMOCCULT 1-3 CARDS Routine 12/15/2012 2:01 PM EDT Routine general medical examination at a [facility] care facility POCT HEMOCCULT 1-3 CARDS Routine 12/09/2012 1:30 PM EDT Epigastric pain POCT URINALYSIS AUTOMATED Routine 12/01/2012 9:06 AM EDT Hematuria documented in this encounter Results * POCT HEMOCCULT 1-3 CARDS (12/15/2012 2:01 PM EDT) Fec Heme Neg Pos/Neg SEP OFFICE Comment:x 3 results x 3days Lot Number SEP OFFICE Expiration Date SEP OFFICE SeriAl # SEP OFFICE Stool specimen (specimen) 12/15/2012 2:01 PM EDT Annalise Oneill MD POINT OF CARE TEST ORDERABLES Final Result Performing Organization Address City/[facility]/ZIP Co de Phone Number SEP OFFICE * POCT HEMOCCULT 1-3 CARDS (12/09/2012 1:30 PM EDT) Fec Heme negative Pos/Neg SEP OFFICE Lot Number SEP OFFICE Expiration Date SEP OFFICE SeriAl # SEP OFFICE Stool specimen (specimen) 12/09/2012 1:30 PM EDT Annalise Oneill MD POINT OF CARE TEST ORDERABLES Final Result Performing Organization Address [facility] de Phone Number SEP OFFICE * URINE CULTURE (12/01/2012 3:12 PM EDT) Final No growth at 2 days. [facility] Urine specimen (specimen) 12/01/2012 3:12 PM EDT 12/01/2012 9:14 PM EDT Annalise Oneill MD MICROBIOLOGY - GENERAL ORDERA BLES Final Result Performing Organization Address City/[facility] Co de Phone Number [facility] [address] [place] [address] * POCT URINALYSIS AUTOMATED (12/01/2012 9:06 AM EDT) Color, UA Clear, Yellow, [place], [place] SEP OFFICE Clarity, UA Clear, Cloudy SEP OFFICE Glucose, UA n g/dl% SEP OFFICE Bilirubin, UA n Pos/Neg SEP OFFICE Ketones, UA n Pos/Neg SEP veneer press operator Grav, UA 1.015 1.001 - 1.035 g/dl SEP OFFICE Blood, UA n Pos/Neg SEP OFFICE pH, UA 6 5.0 - 8 SEP OFFICE Protein, UA n Pos/Neg SEP OFFICE Urobilinogen, UA n 0.2 - 1.0 mg/dL SEP OFFICE Leukocytes, UA n Pos/Neg SEP OFFICE Nitrite, UA n Pos/Neg SEP OFFICE Appear BF Clear, Slightly Cloudy Clear, Cloudy SEP OFFICE Lot Number SEP OFFICE Expiration Date SEP OFFICE SeriAl # SEP OFFICE Urine specimen (specimen) 12/01/2012 9:06 AM EDT us Annalise Oneill MD POINT OF CARE TEST ORDERABLES Final Result SEP OFFICE documented in this encounter Visit Diagnoses Diagnosis Epigastric pain- Primary Abdominal pain, epigastric Esophageal reflux Anemia Anemia, unspecified Hematuria Hematuria, unspecified Aphthous ulcer Oral aphthae Routine general medical examination at a health care facility documented in this encounter Discontinued Medications Medication Sig Discontinue Reason Start Date End Da te meloxicam (MOBIC) 15 mg tablet Take 15 mg by mouth daily. Reorder 12/01/2012 meloxicam (MOBIC) 15 mg tablet Take 1 Tab by mouth daily. Reorder 12/01/2012 12/01/2012 omeprazole (PRILOSEC) 20 mgIndications:Epigastric pain,Esophageal reflux Take 1 Cap by mouth daily. Reorder 12/01/2012 12/01/2012 nystatin (MYCOSTATIN) 100,000 unit/mL suspensionIndications:Aph thous ulcer Take 10 mL by mouth 4 times daily for 7 days. Reorder 12/01/2012 12/01/2012 documented as of this encounter Care Teams Improvement Analyst Relationship Specialty Start Date End Date Patrice Lombardi DO [address] [place] [address] PCP - General Family Medicine 08/10/12 04/24/14 documented as of this encounter
--- OUTSIDE RECORDS SUMMARY | 2024-07-22 16:20 | XMS_ITS | Encounter Summary ---
Author Organization [place] Address [facility] [place] [address] Care Team Providers Care Swimming Professor Name Role Phone Harjit Orellana DO, Viral Primary Care Provider [phone] Garett Holt MD Unavailable [phone] Encounter Details Date Type Department Care Team (Latest Contact Info) Description 12/22/2012 10:20 AM EDT - 12/22/2012 11:59 PM EDT Hospital Encounter [facility] [place] [id number] Anemia (Primary Dx) Discharge Disposition: Home or Self [...] EST Appointment [facility] [address] [place] [address] Jomar Kim MD [address] [place], [place] [id number] Scheduled Orders Name Type Priority Associated Diagnoses Orde r Schedule OP VENIPUNCTURE CHARGE Lab Timed Anemia One Time for 1 Occurrences starting 12/22/2012 until 12/22/2012 documented as of this encounter Procedures Procedure Name Priority Date/Time Associated Diagnosis Comments IRON LEVEL AND TIBC Routine 12/22/2012 1 0:29 AM EDT Anemia FERRITIN Routine 12/22/2012 10:29 AM EDT Anemia documented in this encounter Results * (ABNORMAL) IRON LEVEL AND TIBC (12/22/2012 10:29 AM EDT) Iron 47 19 - 153 mcg/dL [facility] TIBC 327 260 - 495 mcg/dL [facility] %Saturation 14(L) 20 - 50 % [facility] Blood specimen (specimen) UPPER LIMB STRUCTURE / Unknown 12/22/2012 10:29 AM EDT 12/22/2012 10:30 AM EDT us Garett Holt MD CHEMISTRY ORDERABLES Edited Result - Final Performing Organization Address City/[facility]/ZIP Co de Phone Number [facility] [address] [place] [address] * FERRITIN (12/22/2012 10:29 AM EDT) Ferritin 67 6 - 180 ng/mL [facility] Blood specimen (specimen) UPPER LIMB STRUCTURE / Unknown 12/22/2012 10:29 AM EDT 12/22/2012 10:30 AM EDT Garett Holt MD CHEMISTRY ORDERABLES Final Result Performing Organization Address [facility]/ZIP Co de Phone Number [facility] [address] [place] [address] documented in this encounter Visit Diagnoses Diagnosis Anemia- Primary Anemia, unspecified documented in this encounter Care Teams Swimming Professor Relationship Specialty Start Date End Date Lombardi, Viral V, DO [address] [place] [phone] PCP - General Family Medicine 08/10/12 04/24/14 Garett Holt MD [address] [place] [phone] Internal Medicine-Gastroenterology 12/22/12 documented as of this encounter
--- OUTSIDE RECORDS SUMMARY | 2024-07-22 16:20 | XMS_ITS | Encounter Summary ---
Author Organization [place] [address] Care Team Providers Care Back Grinder Name Role Phone Harjit Orellana DO, Viral Primary Care Provider [phone] Reason for Visit * Reason Comments Fall 08/01/12 triped over something on the inclosed porch fell on left arm right leg arm is still sore Encounter Details Date Type Department Care Team (Late st Contact Info) Description 08/10/2012 1:00 PM EST Office Visit [facility] [address] [place] [address] Lombardi, Viral V, DO [address] [place] [address] GERD (gastroesophageal reflux disease) (Primary Dx); Left shoulder strain; Osteoarthrosis, unspecified whether generalized [...] Sign Reading Time Taken Comments Blood Pressure 140/92 08/10/2012 1:01 PM EST Pulse 84 08/10/2012 1:01 PM EST Temperature 36.5 ??C (97.7 ??F) 08/10/2012 1:01 PM ES T Respiratory Rate - - Oxygen Saturation - - Inhaled Oxygen Concentration - - Weight 123.8 kg (273 lb) 08/10/2012 1:01 PM EST Height 153.7 cm (5' 0.5 ) 08/10/2012 1:01 PM EST Body Mass Index 52.44 08/10/2012 1:01 PM EST documented in this encounter Ordered Prescriptions Prescription Sig Dispense Quantity Refills Last Filled Start Date End Date methylPREDNISolon e (MEDROL DOSPACK) 4 mg tabletIndications :Left shoulder strain,Osteoarthr osis, unspecified whether generalized or localized, unspecified site See package instructions 21 Tab 0 08/10/2012 2 omeprazole (PRILOSEC) 20 mgIndications:ROSY D (gastroesophageal reflux disease) Take 1 Cap by mouth daily for 90 days. 90 Cap 1 08/10/2012 3 documented in this encounter Progress Notes * Lombardi, Viral V, DO - 08/10/2012 1:04 PM EST Subjective: Patient ID: Alyssa Jamil is a 57 y.o. female. Fall The accident occurred more than 1 week ago. The fall occurred while walking. She fell from a heightof 3 to 5 ft. Impact surface: small heater. There was no blood loss. The point of impact was the left shoulder and right knee (right leg). The pain is present in the left shoulder. The pain is at a severity of 7/10. Pertinent negatives include no headaches, loss of consciousness, nausea or vomiting. Associated symptoms comments: [place] dizzy afterwards . Chief Complaint Patient presents with ??? Fall 08/01/12 triped over something on the inclosed porch fell on left arm right leg arm is still sore No loc... No better with otc nsiads.. Mild shoulder rom... And is improving slowly.. Patients past medical, family and social histories were reviewed and updated. There were no changesexcept as noted. Review of Systems Constitutional: Negative for activity change and appetite change. HENT: Negative. Eyes: Negative. Respiratory: Negative. Cardiovascular: Negative. Negative for chest pain. Gastrointestinal: Negative. Negative for nausea, vomiting, diarrhea and constipation. Genitourinary: Negative. Musculoskeletal: Negative. Neurological: Negative for dizziness, loss of consciousness and headaches. Hematological: Negative. Psychiatric/Behavioral: Negative. Objective: Filed Vitals: 08/10/12 1301 BP: 140/92 Pulse: 84 Temp: 97.7 ??F (36.5 ??C) TempSrc: Oral Height: 5' 0.5 (1.537 m) Weight: 273 lb (123.832 kg) Body mass index is 52.44 kg/(m^2). Physical Exam Vitals reviewed. Constitutional: She [...] shoulder: She exhibits decreased range of motion, tenderness and spasm. Neurological: She is alert and oriented to person, place, and time. Skin: Skin is warm. Assessment and Plan: Alyssa was seen today for fall. Diagnoses and associated orders for this visit: Gerd (gastroesophageal reflux disease) - omeprazole (PRILOSEC) 20 mg; Take 1 Cap by mouth daily for 90 days. Left shoulder strain - X-ray shoulder left 4 views; Future - methylPREDNISolone (MEDROL DOSPACK) 4 mg tablet; See package instructions Osteoarthrosis, unspecified whether generalized or localized, unspecified site - X-ray shoulder left 4 views; Future - methylPREDNISolone (MEDROL DOSPACK) 4 mg tablet; See package instructions Other Orders - meloxicam (MOBIC) 15 mg tablet; Take 15 mg by mouth daily. documented in this encounter Miscellaneous Notes * Patient Instructions - Aleksandra Kumar RMA - 08/10/2012 1:06 PM EST Dizziness Dizziness is a common problem with numerous causes. Some of these causes are: ?? Middle ear problems ?? Side effects of infections ?? Age - as we grow older we do not react as well to position changes in our body. ?? Side effects of medications ?? Problems with circulation - this could be from an irregular heartbeat, or simply not enough fluid intake during a hot weather spell, or even during the cold of winter. Today you have been examined and no life threatening reasons were found for your dizziness. This means that on examination, none of the problems listed in the columns above were found which were thought to be a cause which require further hospital observation. It also means we feel it is safe for you to go home, and to be observed by family or a friend, and that nothing that is happening is a danger to you. HOME CARE INSTRUCTIONS ?? Take in enough fluids. This is especially important in very hot weather, and as you grow older it is also important in cold weather. As we grow older we tend to loose our feelings of thirst. ?? If you are dizzy from medications, take them as directed. With blood pressure medications it is especially important to get up slowly. Rise slowly from chairs and steady yourself until you feel you are OK. In the morning, first sit up on the side of the bed and when this seems OK, then stand slowly while holding on to something until you know your balance and equilibrium are fine. This is very important with blood pressure medications, but are good rules to follow with all medications. ?? If you find you get dizzy from standing still in one place for too long, be sure to move your legs frequently, and tighten and relax the muscles in your legs while standing. ?? If dizziness still continues to be a problem or concern you, have someone stay with you for a day or two until you feel you are doing well enough to stay alone. Have that person call your caregiver if they notice changes in you they are concerned about. SEEK MEDICAL CARE IF: ?? The dizziness or lightheadedness is getting worse. ?? You develop nausea (feeling sick to your stomach) or vomiting. ?? You develop problems in talking or walking, problems with weakness, or problems using your arms,hands or legs. ?? You do not think you are thinking as clearly as you normally do, or you have difficulty forming sentences. It may take a friend or family member to determine if your thinking is normal, because ifit is too abnormal you may not notice it yourself. ?? You develop chest pain, abdominal (belly) pain, or shortness of breath. ?? You have changes in your vision. ?? You develop side effects from medication which seem to be getting worse rather than better. MAKE SURE YOU: ?? Understand these instructions. ?? Will watch your condition. ?? Will get help right away if you are not doing well or get worse. Document Released: 02/18/2002 Document Re-Released: 11/21/2009 ExitCare?? Patient Information ??2009 [employer]. documented in this encounter Plan of Treatment Upcoming Encounters Date Type Department Care Team (Late st Contact Info) Description 07/29/2024 9:00 AM EST Appointment [facility] [address] [place], [place] [phone] Jomar Kim MD [address] [place] [address] documented as of this encounter Results * XR SHOULDER LEFT [...] dislocation or other significant abnormalitydemonstrated. us Viral Lombardi V, DO IMG DIAGNOSTIC IMAGING ORDERAB LES Final Result documented in this encounter Visit Diagnoses Diagnosis GERD (gastroesophageal reflux disease)- Primary Esophageal reflux Left shoulder strain Sprain and strain of unspecified site of shoulder and upper arm Osteoarthrosis, unspecified whether generalized or localized, unspecified site Left shoulder strain Sprain and strain of unspecified site of shoulder and upper arm Osteoarthrosis, unspecified whether generalized or localized, unspecified site documented in this encounter Discontinued Medications Medication Sig Discontinue Reason Start Date End Da te omeprazole (PRILOSEC) 20 mgIndications:GERD (gastroesophageal reflux disease) Take 1 Cap by mouth daily for 90 days. Reorder 06/15/2012 08/10/2012 documented as of this encounter Historical Medications * This list may reflect changes made after this encounter. meloxicam (MOBIC) 15 mg tablet Take 15 mg by mouth daily. 12/01/2012 added in this encounter Care Teams Back Grinder Relationship Specialty Start Date End Date Patrice Lombardi DO [address] [place] [id number] PCP - General Family Medicine 08/10/12 04/24/14 documented as of this encounter
--- OUTSIDE RECORDS SUMMARY | 2024-07-22 16:20 | XMS_ITS | Encounter Summary ---
Author Organization [place] [address] Care Team Providers Care Line Producer Name Role Phone Unavailable Primary Care Provider Unavailabl e Reason for Visit * Reason Comments Medication Refill Encounter Details Date Type Department Care Team (Late st Contact Info) Description 08/25/2011 Refill [facility] [address] [place] [address] Lombardi, Viral V, DO [address] [place] [address] Medication Refill Social History Tobacco [...] Date End Date meloxicam (MOBIC) 15 mg tablet TAKE 1 TABLET BY MOUTH ONCE DAILY 30 Tab 1 08/25/2011 06/15/2012 documented in this encounter Plan of Treatment Upcoming Encounters Date Type Department Care Team (Late st Contact Info) Description 07/29/2024 9:00 AM EST Appointment [facility] [address] [place] [phone] Jomar Kim MD [address] [address] documented as of this encounter Visit Diagnoses Not on filedocumented in this encounter Discontinued Medications Medication Sig Discontinue Reason Start Date End Da te meloxicam (MOBIC) 15 mg tabletIndications:OA (osteoarthritis) of knee Take 1 Tab by mouth daily for 90 days. Reorder 07/04/2011 08/25/2011 documented as of this encounter
--- OUTSIDE RECORDS SUMMARY | 2024-07-22 16:20 | XMS_ITS | Encounter Summary ---
Author Organization [place] [address] Care Team Providers Care Family Lawyer Name Role Phone Unavailable Primary Care Provider Unavailabl e Encounter Details Date Type Department Care Team (Latest Contact Info) Description 07/05/2011 12:40 PM EDT - 07/05/2011 12:55 PM EDT Hospital Encounter [facility] [address] [place], [place] [id number] Nosebleed Discharge Disposition: Home or Self Care Social [...] 9:00 AM EST Appointment [facility] [address] [place] [phone] Jomar Kim MD [address] [place] [address] Pending Results Name Type Priority Associated Diagnoses Date /Time BASIC METABOLIC PANEL Lab Routine Nosebleed 07/05/2011 12:50 PM EDT Scheduled Orders Name Type Priority Associated Diagnoses Orde r Schedule OP VENIPUNCTURE CHARGE Lab Timed Nosebleed One Time for 1 Occurrences starting 07/05/2011 until 07/05/2011 documented as of this encounter Procedures Procedure Name Priority Date/Time Associated Diagnosis Comments DIFFERENTIAL Routine 07/05/2011 12:50 PM EDT CBC WITH DIFF Routine 07/05/2011 12:50 PM EDT Nosebleed documented in this encounter Results * AUTO DIFF (07/05/2011 12:50 PM EDT) Neut Percent 68.9 40.0 - 70.0 % [facility] Lymph Percent 21.0 17.0 - 46.0 % [facility] Bent Percent 7.2 4.0 - 12.0 % [facility] Eos Percent 2.5 0.0 - 6.0 % [facility] Baso Percent 0.4 0.0 - 2.0 % [facility] Neut# 5.9 1.8 - 7.7 x10(3)/mcL [facility] Lymph# 1.8 1.0 - 4.8 x10(3)/mcL [facility] Bent# 0.6 0.0 - 1.3 x10(3)/mcL [facility] Eos# 0.2 0.1 - 0.5 x10(3)/mcL [facility] Baso# 0.0 0.0 - 0.2 x10(3)/[facility] Blood specimen (specimen) 07/05/2011 12:50 PM EDT 07/05/2011 12:50 PM EDT us Viral Lombardi V, DO HEMATOLOGY ORDERABLES Final Re sult Performing Organization Address [facility] Co de Phone Number [facility] [address] [place] [address] * (ABNORMAL) CBC WITH AUTO DIFF (07/05/2011 12:50 PM EDT) WBC 8.6 4.0 - 11.0 x10(3)/mcL [facility] RBC 4.33 4.00 - 5.10 x10(6)/mcL [facility] Hgb 11.8(L) 12.0 - 15.7 gm/dL [facility] Hct 35.5(L) 36.0 - 45.9 % [facility] MCV 82.1 80.0 - 95.[address] [facility] MCH 27.2 27.0 - 33.[address] [facility] MCHC 33.2 33.0 - 36.0 gm/dL [facility] RDW 14.3 11.5 - 14.5 % [facility] Platelet 236 150 - 400 x10(3)/mcL [facility] MPV 8.8 7.0 - 12.[address] [facility] Blood specimen (specimen) UPPER LIMB STRUCTURE / Unknown 07/05/2011 12:50 PM EDT 07/05/2011 12:50 PM EDT us Viral Lombardi V, DO HEMATOLOGY ORDERABLES Final Re sult Performing Organization Address [facility] Co de Phone Number [facility] [address] [place] [address] documented in this encounter Visit Diagnoses Diagnosis Nosebleed Epistaxis documented in this encounter
--- OUTSIDE RECORDS SUMMARY | 2024-07-22 16:20 | XMS_ITS | Encounter Summary ---
Author Organization [place] [address] Care Team Providers Care Business Employment Specialist Name Role Phone Unavailable Primary Care Provider Unavailabl e Reason for Referral * Consultation (Routine) - Closed Specialty Diagnoses / Procedures Referred By Contalissa t Referred To Contact Internal Medicine-Cardiovascula r Disease Diagnoses Chest pain Procedures consult Patrice Lombardi DO [address] [place] [address] Phone: tel: fax: Ruiz Stokes MD Phone: tel: fax: Referral ID Status Reason Start Date Expiration Date Visits Re quested Visits Authorized [id number] Closed 06/15/2012 12/12/2012 12 12 Reason for Visit * Reason Comments Abdominal Pain Hip Pain Back Pain Headache Encounter Details Date Type Department Care Team (Late st Contact Info) Description 06/15/2012 1:10 PM EDT Office Visit [facility] [address] [place] [address] Patrice Lombardi DO [address] [place] [address] Other screening mammogram (Primary Dx); Abdominal pain, other specified site; Chest wall pain; OA (osteoarthritis); Acute sinusitis; Chest pain; GERD (gastroesophageal reflux disease) Social History Tobacco [...] Sign Reading Time Taken Comments Blood Pressure 128/80 06/15/2012 1:37 PM EDT Pulse 92 06/15/2012 1:37 PM EDT Temperature 36.6 ??C (97.9 ??F) 06/15/2012 1:37 PM ED T Respiratory Rate - - Oxygen Saturation - - Inhaled Oxygen Concentration - - Weight 121.6 kg (268 lb) 06/15/2012 1:37 PM EDT Height 154.9 cm (5' 1 ) 06/15/2012 1:37 PM EDT Body Mass Index 50.64 06/15/2012 1:37 PM EDT documented in this encounter Ordered Prescriptions Prescription Sig Dispense Quantity Refills Last Filled Start Date End Date omeprazole (PRILOSEC) 20 mgIndications:GERD (gastroesophageal reflux disease) Take 1 Cap by mouth daily for 90 days. 30 Cap 2 06/15/2012 2 azithromycin (ZITHROMAX) 250 mg tabletIndications: Acute sinusitis Take 2 tablets (500 mg) on Day 1, followed by 1 tablet (250 mg) once daily on Days 2 through 5. 6 Tab 0 06/15/2012 2 documented in this encounter Progress Notes * Patrice Lombardi V, DO - 06/15/2012 1:38 PM EDT Subjective: Patient ID: Alyssa Jamil is a 57 y.o. female. Abdominal Pain This is a new problem. Episode onset: x3-4 months. The problem occurs daily. The problem has been gradually worsening since onset. The pain is located in the generalized abdominal region. The pain issevere. The quality of the pain is described as a sensation of fullness and aching. Associated symptoms include a fever, frequency and headaches. Pertinent negatives include no belching, constipation, diarrhea, nausea or vomiting. Past treatments include nothing. Hip Pain The pain is present in the right hip. This is a new problem. Episode onset: x2 weeks. There has been no history of extremity trauma. The problem has been unchanged. The quality of the pain is described as sharp. The pain is moderate. Associated symptoms include a fever, a limited range of motion, numbness, stiffness and tingling. She has tried NSAIDS for the symptoms. The treatment provided no relief. Back Pain This is a new problem. The current episode started more than 1 month ago. The problem occurs daily.The problem has been unchanged. Associated symptoms include abdominal pain, a fever, headaches and numbness. Pertinent negatives include no congestion, nausea or vomiting. Associated symptoms comments: Mid back, aching. She has tried NSAIDs for the symptoms. The treatment provided no relief. Headache This is a new problem. The current episode started in the past 7 days. The pain is present in the frontal. The quality of the pain is described as squeezing. The pain is severe. Associated symptoms include abdominal pain, back pain, dizziness, ear pain, eye watering, a fever, numbness and tingling.Pertinent negatives include no diarrhea, eye pain, nausea, rhinorrhea or vomiting. Past treatments include NSAIDs. The treatment provided no relief. No chest pain with exertion.. No cough or congestion... No uri... No new medications. No sick contact. Pain in epigastric area... No gerd like symptoms. Patients past medical, family and social histories were reviewed and updated. There were no changesexcept as noted. Review of Systems Constitutional: Positive for fever. HENT: Positive for ear pain. Negative for congestion, rhinorrhea and postnasal drip. Eyes: Negative. Negative for pain. Respiratory: Negative. Gastrointestinal: Positive for abdominal pain. Negative for nausea, vomiting, diarrhea and constipation. Genitourinary: Positive for frequency. Musculoskeletal: Positive for back pain and stiffness. Neurological: Positive for dizziness, tingling, numbness and headaches. Objective: Filed Vitals: 06/15/12 1337 BP: 128/80 Pulse: 92 Temp: 97.9 ??F (36.6 ??C) TempSrc: Oral Height: 5' 1 (1.549 m) Weight: 268 lb (121.564 kg) Body mass index is 50.64 kg/(m^2). Physical Exam Vitals reviewed. Constitutional: She [...] There is no rebound and no guarding. Neurological: She is alert and oriented to person, place, and time. Skin: Skin is warm. Psychiatric: She has a normal mood and affect. Her behavior is normal. Judgment and thought contentnormal. Assessment and Plan: Alyssa was seen today for abdominal pain, hip pain, back pain and headache. Diagnoses and associated orders for this visit: Other screening mammogram - Mammography digital screening bilateral; Future Abdominal pain, other specified site - Hepatic Function Panel; Future - Basic Metabolic Panel; Future Chest wall pain - methylPREDNISolone acetate (DEPO-MEDROL) injection 80 mg; Inject 1 mL into the muscle once. Oa (osteoarthritis) Acute sinusitis - azithromycin (ZITHROMAX) 250 mg tablet; Take 2 tablets (500 mg) on Day 1, followed by 1 tablet (250 mg) once daily on Days 2 through 5. Chest pain - Hepatic Function Panel; Future - Basic Metabolic Panel; Future - Troponin-I; Future - Cardiology Gerd (gastroesophageal reflux disease) - omeprazole (PRILOSEC) 20 mg; Take 1 Cap by mouth daily for 90 days. A new medication was prescribed during this office visit. I did discuss with the patient the reasonfor prescribing this new medication. I also did inform the patient of possible likely side effects,but also encouraged the patient to read the medication insert that will accompany their prescription and encouraged her to discuss any questions about the insert with their pharmacist. She was instruc felipa to call if having side effects or possible allergic reaction after taking. I also discussed with her the risk of stopping the medication or deviating from prescribing instructions. Dosing instructions are present on the AVS and she is aware. I inquired both patient and family of any questions and answered accordingly. If nobetter then follow up with er or ov documented in this encounter Procedure Notes * Unknown, Unknown - 07/14/2012 12:00 AM ESTAssociated Order(s): SCANNED LABS documented in this encounter Miscellaneous Notes * Patient Instructions - Luiza Espinoza MA - 06/15/2012 1:44 PM EDT Images from the original note were not included. Back Pain (Lumbo-Sacral Strain) Back pain is one of the most common causes of pain. There are many possible causes of back pain. Most are not serious conditions. Your backbone (spinal column) is made up of 24 main vertebral bodies in addition to the sacrum and coccyx. These are held together by tough fibrous tissue called ligaments and also by your muscles. Nerve roots pass through the openings between the vertebrae. A sudden move or injury to the back may cause injury to, or pressure upon these nerves. This may result in localized back pain or movement (radiation) of pain into the buttocks and down the leg into the foot. The condition known as sciatica(a sharp, shooting pain from the buttock down the back of the leg) is frequently associated with a ruptured (herniated) disc. Pain may be caused by muscle spasm alone. Your caregiver can often find the cause of your pain by the details of your symptoms and an exam. In some cases, you may need tests (such as x-rays), but these may not be right for you. Your caregiver will work with you to decide if any tests are needed based on your specific exam. HOME CARE INSTRUCTIONS Avoid an underactive life style. Active exercise, as directed by your caregiver, is your greatest weapon against back pain. Hard physical activities such as tennis, racquetball, water skiing etc., without proper physical conditioning, may aggravate and/or create problems. This is especially true ifyou are not in condition for that activity. If you have a back problem, it is especially important to avoid sports requiring sudden body movements. Swimming and walking are generally safer activities. Maintain good posture. Avoid becoming over- weight (obese). Use bed rest for only the most extreme, sudden (acute) episode. Your caregiver will help you determine how much bed rest is necessary. Ice used for acute conditions may help with pain relief. Use a large plastic bag filled with ice and wrap it in a towel. This may be continuous or for 30 minutes every 2 hours during the worst pain, then as needed. After you are improved and more active, heat applied to the painful area for 30 minutes before activities may help. See your caregiver if you are having pain lasting longer than expected. Your caregiver can help or advise appropriate exercises and/or therapy if this is needed. With conditioning, most back problemscan be avoided. SEEK IMMEDIATE MEDICAL CARE IF: ?? You have numbness, tingling, weakness, or problem with the use of your arms or legs. ?? You experience severe back pain not relieved with medications. ?? There is a change in bowel or bladder control. ?? You have increasing pain in any areas of the body, including your stomach or belly (abdomen). ?? You notice shortness of breath, dizziness or fainting. ?? You feel sick to your stomach (nauseous), vomiting or sweats. ?? You notice discoloration of your toes or your legs or feet get very cold. ?? You develop a fever along with worsening back pain. MAKE SURE YOU: ?? Understand these instructions. ?? Watch your condition. ?? Get help right away if you are not doing well or get worse. Document Released: 06/04/2006 Document Re-Released: 12/11/2009 ExitCare?? Patient Information ??2009 [employer] documented in this encounter Plan of Treatment Upcoming Encounters Date Type Department Care Team (Late st Contact Info) Description 07/29/2024 9:00 AM EST Appointment [facility] [address] [place] [address] Jomar Kim MD [address] [place] [address] Scheduled Orders Name Type Priority Associated Diagnoses Orde r Schedule HEPATIC FUNCTION PANEL Lab Routine Abdominal pain, other specified site Chest pain 1 Occurrences starting 06/15/2012 until 12/15/2012 BASIC METABOLIC PANEL Lab Routine Abdominal pain, other specified site Chest pain 1 Occurrences starting 06/15/2012 until 12/14/2012 TROPONIN-I Lab Routine Chest pain 1 Occurrences starting 06/15/2012 until 12/15/2012 Scheduled Referrals Name Type Priority Associated Diagnoses Order Schedule AMB REFERRAL TO CARDIOLOGY Outpatient Referral Routine Chest pain Ordered: 06/15/2012 documented as of this encounter Procedures Procedure Name Priority Date/Time Associated Diagnosis Comments SCANNED LABS 07/14/2012 12:00 AM EST documented in this encounter Results * SCANNED LABS (07/14/2012 12:00 AM EST) Narrative Procedure Note Unknown, Unknown - 07/14/2012 12:00 AM EST us Unknown Unknown HEMATOLOGY ORDERABLES Final Resu lt * MM MAMMO DIGITAL SCREENING W CAD BILAT (07/08/2012 4:38 PM EDT) Anatomical Region Laterality Modality Breast Bilateral Mammography 07/10/2012 7:44 AM EDT Impressions 07/10/2012 8:22 AM EDT : No radiographic evidence of malignancy ([id number]) ~ RECOMMENDATION: Routine screening mammogram in 1 [...] ~ IMPRESSION: No radiographic evidence of malignancy ([id number]) ~ RECOMMENDATION: Routine screening mammogram in 1 [...] by a Radiologist and CAD. us Viral Lombardi V, DO IMG MAMMOGRAPHY ORDERABLES Fin al Result documented in this encounter Visit Diagnoses Diagnosis Other screening mammogram- Primary Abdominal pain, other specified site Chest wall pain Painful respiration OA (osteoarthritis) Osteoarthrosis, unspecified whether generalized or localized, unspecified site Acute sinusitis Acute sinusitis, unspecified Chest pain Chest pain, unspecified GERD (gastroesophageal reflux disease) Esophageal reflux Other screening mammogram documented in this encounter Administered Medications Inactive Administered Medications - up to 1 most recent administrations Medication Order MAR Action Action Date Dose Rate Site methylPREDNISolone acetate (DEPO-MEDROL) injection 80 mg 80 mg, Intramuscular, ONCE, 1 dose, On 06/15/12 at 1415, Dx: 1. Chest wall painIndications:Chest wall pain Given 06/15/2012 2:08 PM EDT 80 mg documented in this encounter Discontinued Medications Medication Sig Discontinue Reason Start Date End Da te meloxicam (MOBIC) 15 mg tablet TAKE 1 TABLET BY MOUTH ONCE DAILY 08/25/2011 06/15/2012 NAPROXEN SODIUM (ALEVE ORAL) Take by mouth. 06/15/2012 documented as of this encounter
--- OUTSIDE RECORDS SUMMARY | 2024-07-22 16:20 | XMS_ITS | Encounter Summary ---
Author [place] [address] Care Team Providers Care Fuel Oil Clerk Name Role Phone Lombardi V, DO, Viral Primary Care Provider [phone] Reason for Visit * MRI/CAT Scan (Routine) - Closed Specialty Diagnoses / Procedures Referred By Ron bansal Referred To Contact Radiology Diagnoses Left shoulder strain Muscle spasm Procedures MRI SHOULDER LEFT WO CONTRAST Lombardi, Viral V, DO [address] [place] [address] Phone: tel: fax: [facility] [place] [address] Phone: tel: fax: Referral ID Status Reason Start Date Expiration Date Visits Re quested Visits Authorized [id number] Closed 08/19/2012 02/15/2013 1 1 Encounter Details Date Type Department Care Team (Latest Contact Info) Description 09/14/2012 8:53 AM EST - 09/14/2012 11:59 PM EST Hospital Encounter [facility] [address] [place] [address] Lombardi, Viral V, DO [address] [place] [address] Discharge Disposition: Home or Self Care Social [...] Notes * Miscellaneous - Unknown, Unknown - 09/14/2012 9:09 AM EST * Miscellaneous - Unknown, Unknown - 09/14/2012 9:09 AM EST * Miscellaneous - Unknown, Unknown - 09/14/2012 9:09 AM EST documented in this encounter Plan of Treatment Upcoming Encounters Date Type Department Care Team (Late st Contact Info) Description 07/29/2024 9:00 AM EST Appointment [facility] [address] [place] [address] Jomar Kim MD [address] [place] [address] documented as of this encounter Procedures Procedure Name Priority Date/Time Associated Diagnosis Comments MRI SHOULDER LEFT WO CONTRAST Routine 09/14/2012 10:34 AM EST Left shoulder strain Muscle spasm documented in this encounter Results * MRI SHOULDER LEFT WO CONTRAST (09/14/2012 10:34 AM EST) Anatomical Region Laterality Modality Shoulder Magnetic Resonan ce 08/28/2012 Impressions 09/14/2012 12:19 PM EST IMPRESSION: 1. Extremely limited exam as detailed above. 2. Findings consistent with tendinopathy of the supra and infraspinatus tendons but no obvious tear. 3. Glenohumeral and AC joint degenerative disease. Narrative 09/14/2012 12:19 PM EST MRI OF THE LEFT SHOULDER INDICATIONS: Pain. HISTORY: ??Pain. TECHNIQUE: ??Long and short imaging parameters were obtained in the sagittal, coronal, and axial orientation. The examination is limited by patient motion, despite repeated attempts at imaging. Furthermore, the patient's body habitus greatly, badly decreases [id number] characteristics. Grossly there appears to be tendinopathy of the supra greater than infraspinatus tendons with no evidence of discrete tear. There appears to be glenohumeral disease. Particularly inferiorly, there appears to be compromise of the articular cartilage with osteophyte formation. Further assessment can be obtained if clinically indicated with CT arthrography. There is also degenerative disease of the AC joint. Procedure Note Harshil Crystal MD - 09/14/2012 MRI OF THE LEFT SHOULDER INDICATIONS: Pain. HISTORY: Pain. TECHNIQUE: Long and short imaging parameters were obtained in thesagittal, coronal, and axial orientation. The examination is limited by patient motion, despite repeated attempts atimaging. Furthermore, the patient's body habitus greatly, badly suhgfecdyjjeriw-[id number] characteristics. Grossly there appears to be tendinopathy of the supragreater than infraspinatus tendons with no evidence of discrete tear. There appears sydni glenohumeral disease. Particularly inferiorly, there appears to be compromise of thearticular cartilage with osteophyte formation. Further assessment can be obtained ifclinically indicated with CT arthrography. There is also degenerative disease of the AC joint. IMPRESSION: 1. Extremely limited exam as detailed above. 2. Findings consistent with tendinopathy of the supra and infraspinatustendons but no obvious tear. 3. Glenohumeral and AC joint degenerative disease. us Viral Harjit Orellana DO IMG MRI ORDERABLES Final Resul t documented in this encounter Visit Diagnoses Not on filedocumented in this encounter Care Teams Fuel Oil Clerk Relationship Specialty Start Date End Date Patrice Lombardi DO [address] [place] [address] PCP - General Family Medicine 08/10/12 04/24/14 documented as of this encounter
--- OUTSIDE RECORDS SUMMARY | 2024-07-22 16:20 | XMS_ITS | Encounter Summary ---
Author Organization [place] [address] Care Team Providers Care Lactation Coordinator Name Role Phone Harjit Orellana DO, Viral Primary Care Provider [phone] Reason for Referral * MRI/CAT Scan (Routine) - Closed Specialty Diagnoses / Procedures Referred By Ron bansal Referred To Contact Radiology Diagnoses Left shoulder strain Muscle spasm Procedures MRI SHOULDER LEFT WO CONTRAST Leila Lombardi DO [address] [place] [address] Phone: tel: fax: [place] [address] Phone: tel: fax: Referral ID Status Reason Start Date Expiration Date Visits Re quested Visits Authorized [id number] Closed 08/19/2012 02/15/2013 1 1 * Surgical (Routine) - Closed Specialty Diagnoses / Procedures Referred By Ron bansal Referred To Contact Orthopaedic Surgery Diagnoses Left shoulder strain Muscle spasm pt to schedule Procedures eval and treat Leila Lombardi DO [address] [place] [address] Phone: tel: fax: Jean Claude Dexter MD [address] [place] [address] Phone: tel: fax: Referral ID Status Reason Start Date Expiration Date Visits Re quested Visits Authorized [id number] Closed 08/19/2012 02/15/2013 25 1 Reason for Visit * Reason Comments Shoulder Pain fell at home 2 weeks ago onto left shoulder (hit into desk) Encounter Details Date Type Department Care Team (Late st Contact Info) Description 08/19/2012 8:30 AM EST Office Visit [facility] [address] [place] [address] Leila Lombardi DO [address] [place] [id number] Left shoulder strain (Primary Dx); Muscle spasm Social History Tobacco Use Types [...] Sign Reading Time Taken Comments Blood Pressure 138/78 08/19/2012 8:05 AM EST Pulse 68 08/19/2012 8:05 AM EST Temperature 36.1 ??C (97 ??F) 08/19/2012 8:05 AM EST Respiratory Rate 18 08/19/2012 8:05 AM EST Oxygen Saturation - - Inhaled Oxygen Concentration - - Weight 125.3 kg (276 lb 3.2 oz) 08/19/2012 8:05 AM EST Height 153.7 cm (5' 0.5 ) 08/19/2012 8:05 AM EST Body Mass Index 53.05 08/19/2012 8:05 AM EST documented in this encounter Ordered Prescriptions Prescription Sig Dispense Quantity Refills Last Filled Start Date End Date naproxen (NAPROSYN) 375 mg tabletIndications: Left shoulder strain,Muscle spasm Take 1 Tab by mouth 2 times daily (with meals) for 90 days. 60 Tab 2 08/19/2012 11/17/2012 celecoxib (CELEBREX) 200 mg capsuleIndications :Left shoulder strain,Muscle spasm Take 1 Cap by mouth daily for 90 days. 10 Cap 2 08/19/2012 08/19/2012 cyclobenzaprine (FLEXERIL) 5 mg tablet Take 1 Tab by mouth every 8 hours as needed for Muscle spasms for 90 days. 30 Tab 1 08/19/2012 11/17/2012 documented in this encounter Progress Notes * Leila Lombardi DO - 08/19/2012 8:38 AM ESTAddended by: LEILA LOMBARDI V on: 08/19/2012 08:38 AM Modules accepted: Orders * Leila Lombardi DO - 08/19/2012 8:08 AM EST Subjective: Patient ID: Alyssa Jamil is a 57 y.o. female. Shoulder Pain The pain is present in the left shoulder. This is a new problem. The current episode started 1 to 4weeks ago. There has been a history of trauma (fell into desk at home 2 weeks ago ontl left shoulder). The problem occurs constantly. The problem has been gradually worsening. The pain is moderate. Associated symptoms include a limited range of motion and stiffness. Treatments tried: mobic. The treatment provided no relief. Chief Complaint Patient presents with ??? Shoulder Pain fell at home 2 weeks ago onto left shoulder (hit into desk) Still having pain and sornes.. Steroid shot helped... But rom is still decreased. Patients past medical, family and social histories were reviewed and updated. There were no changesexcept as noted. Review of Systems Constitutional: Negative. HENT: Negative. Eyes: Negative. Respiratory: Negative. Cardiovascular: Negative. Gastrointestinal: Negative. Genitourinary: Negative. Musculoskeletal: Positive for arthralgias and stiffness. Left shoulder pain Objective: Filed Vitals: 08/19/12 0805 BP: 138/78 Pulse: 68 Temp: 97 ??F (36.1 ??C) Resp: 18 Height: 5' 0.5 (1.537 m) Weight: 276 lb 3.2 oz (125.283 kg) Body mass index is 53.05 kg/(m^2). Physical Exam Vitals reviewed. Constitutional: She [...] and Plan: Alyssa was seen today for shoulder pain. Diagnoses and associated orders for this visit: Left shoulder strain - ketorolac (TORADOL) injection 60 mg; Inject 2 mL into the muscle once. - Orthopedic Surgery - Discontinue: celecoxib (CELEBREX) 200 mg capsule; Take 1 Cap by mouth daily for 90 days. - MRI shoulder left without contrast; Future - naproxen (NAPROSYN) 375 mg tablet; Take 1 Tab by mouth 2 times daily (with meals) for 90 days. Muscle spasm - ketorolac (TORADOL) injection 60 mg; Inject 2 mL into the muscle once. - Orthopedic Surgery - Discontinue: celecoxib (CELEBREX) 200 mg capsule; Take 1 Cap by mouth daily for 90 days. - MRI shoulder left without contrast; Future - naproxen (NAPROSYN) 375 mg tablet; Take 1 Tab by mouth 2 times daily (with meals) for 90 days. Other Orders - cyclobenzaprine (FLEXERIL) 5 mg tablet; Take 1 Tab by mouth every 8 hours as needed for Muscle spasms for 90 days. documented in this encounter Plan of Treatment Upcoming Encounters Date Type Department Care Team (Late st Contact Info) Description 07/29/2024 9:00 AM EST Appointment [facility] [address] [place] [id number] Jomar Kim MD [address] [place] [address] Scheduled Referrals Name Type Priority Associated Diagnoses Order Schedule AMB REFERRAL TO ORTHOPEDIC SURGERY Outpatient Referral Routine Left shoulder strain Muscle spasm Ordered: 08/19/2012 documented as of this encounter Results * MRI SHOULDER LEFT [...] the patient's body habitus greatly, badly decreases [id number] characteristics. Grossly there appears to be tendinopathy [...] Furthermore, the patient's body habitus greatly, badly [id number] characteristics. Grossly there appears to be tendinopathy [...] Glenohumeral and AC joint degenerative disease. us Leila Orellana DO IMMary Lou MRI ORDERABLES Final Resul t documented in this encounter Visit Diagnoses Diagnosis Left shoulder strain- Primary Sprain and strain of unspecified site of shoulder and upper arm Muscle spasm Spasm of muscle documented in this encounter Administered Medications Inactive Administered Medications - up to 1 most recent administrations Medication Order MAR Action Action Date Dose Rate Site ketorolac (TORADOL) injection 60 mg 60 mg, Intramuscular, ONCE, 1 dose, On Fri08/19/12 at 0830, Dx: 1. Left shoulder strain 2. Muscle spasmIndications:Left shoulder strain,Muscle spasm Given 08/19/2012 8:38 AM EST 60 mg documented in this encounter Discontinued Medications Medication Sig Discontinue Reason Start Date End Da te celecoxib (CELEBREX) 200 mg capsuleIndications:Left shoulder strain,Muscle spasm Take 1 Cap by mouth daily for 90 days. 08/19/2012 08/19/2012 documented as of this encounter Care Teams Lactation Coordinator Relationship Specialty Start Date End Date Leila Lombardi DO [address] [place] [phone] PCP - General Family Medicine 08/10/12 04/24/14 documented as of this encounter
--- OUTSIDE RECORDS SUMMARY | 2024-07-22 16:20 | XMS_ITS | Encounter Summary ---
Author Organization [place] [address] Care Team Providers Care Heel Sprayer First Name Role Phone Unavailable Primary Care Provider Unavailabl e Encounter Details Date Type Department Care Team (Late st Contact Info) Description 06/22/2012 Orders Only [facility] [address] [place] [address] Lombardi, Viral V, DO [address] [place] [address] Social History Tobacco Use Types [...] EST Appointment [facility] [address] [place] [address] Jomar Kim MD [address] [place] [address] documented as of this encounter Procedures Procedure Name Priority Date/Time Associated Diagnosis Comments TROPONIN I-QUEST Routine 06/22/2012 12:4 2 PM EDT HEPATIC FUNCTION PANEL-QUEST Routine 06/22/2012 12:42 PM EDT BASIC METABOLIC PANEL-QUEST Routine 06/22/2012 12:42 PM EDT documented in this encounter Results * TROPONIN I-QUEST (06/22/2012 12:42 PM EDT) Pathologist [facility] Troponin-I <0.01 < OR = 0.05 ng/mL [facility] Comment: In accord with published recommendations, serial testing of troponin I at intervals of 2 to 4 hours for up to 12 to 24 hours is suggested in order to corroborate a single troponin I result. An elevated troponin alone is not sufficient to make the diagnosis of [place]. 06/22/2012 12:4 2 PM EDT 06/22/2012 12:50 PM EDT Narrative Resulting Agency Comment Performing Organization Information: ?Site ID: OW ?Name: [facility] ?Address: [address] [place] [phone] ?Director: Artemio Avila MD PhD us Viral Lombardi V, DO [facility] Fin al Result [facility] [employer] * (ABNORMAL) HEPATIC FUNCTION PANEL-[facility] (06/22/2012 12:42 PM EDT) Pathologist [facility] Protein, Total 7.8 6.2 - 8.3 g/dL [facility] Albumin 4.1 3.6 - 5.1 g/dL [facility] Globulin 3.7 2.2 - 3.9 g/dL (calc) [facility] Albumin/Globul in Ratio 1.1 1.0 - 2.1 (calc) [facility] Total Bilirubin 0.2 0.2 - 1.2 mg/dL [facility] Bilirubin, Direct (Micro) 0.1 < OR = 0.2 mg/dL [facility] Bilirubin, Indirect (Micro) 0.1(L) 0.2 - 1.2 mg/dL (calc) [facility] Alk Phos 89 33 - 130 U/L [facility] AST 14 10 - 35 U/L [facility] ALT 19 6 - 40 U/L [facility] 06/22/2012 12:4 2 PM EDT 06/22/2012 12:50 PM EDT Narrative Resulting Agency Comment Performing Organization Information: ?Site ID: OW ?Name: [facility] ?Address: [address] [place] [phone] ?Director: Artemio Avila MD PhD us Viral Lombardi V, DO [facility] ORDER[facility] Fin al Result [facility] [employer] * (ABNORMAL) BASIC METABOLIC PANEL-[employer] (06/22/2012 12:42 PM EDT) Glucose 105(H) 65 - 99 mg/dL [facility] Comment: ? Fasting reference interval BUN 12 7 - 25 mg/dL [facility] Creatinine 0.73 0.50 - 1.05 mg/dL [facility] Comment: For patients >49 years of age, the reference limit for Creatinine is approximately 13% higher for people identified as -[place]. EGFR 92 > OR = 60 mL/min/1 .73m2 [facility] EGFR 107 > OR = 60 mL/min/1 .73m2 [facility] BUN/Creatinine Ratio NOT APPLICABLE 6 - 22 (calc) [facility] Sodium 141 135 - 146 mmol/L [facility] Potassium 4.6 3.5 - 5.3 mmol/L [facility] Chloride 102 98 - 110 mmol/L [facility] CO2 28 21 - 33 mmol/L [facility] Calcium 9.6 8.6 - 10.4 mg/dL [facility] 06/22/2012 12:4 2 PM EDT 06/22/2012 12:50 PM EDT Narrative Resulting Agency Comment Performing Organization Information: ?Site ID: OW ?Name: [facility] ?Address: [address] [place] [address] [place] [address] ?Director: Artemio Avila MD PhD us Viral Lombardi V, DO [facility] Fin al Result [employer] documented in this encounter Visit Diagnoses Not on filedocumented in this encounter
--- OUTSIDE RECORDS SUMMARY | 2024-07-22 16:21 | XMS_ITS | Encounter Summary ---
Author Organization [place] [address] Care Team Providers Care Articulation Officer Name Role Phone Unavailable Primary Care Provider Unavailabl e Encounter Details Date Type Department Care Team (Late st Contact Info) Description 12/18/2006 12:01 AM EDT - 12/18/2006 11:59 PM EDT Hospital Encounter [facility] [address] [phone] Social History Tobacco Use Types Packs/Day Years [...] EST Appointment [facility] [address] [place] [address] Jomar Kim MD [address] [place] [address] Scheduled Orders Name Type Priority Associated Diagnoses Orde r Schedule MM MAMMO SCREEN W/CAD PANEL Imaging Routine Once for 1 Occur rences starting 11/15/2009 until 11/15/2009, 1 completed documented as of this encounter Procedures Procedure Name Priority Date/Time Associated Diagnosis Comments MV MAMMO SCREEN W/CAD PANEL Routine 12/18/2006 8:40 AM EDT documented in this encounter Results * MM MAMMO SCREEN W/CAD PANEL (12/18/2006 8:40 AM EDT) Anatomical Region Laterality Modality Other 12/18/2006 8:40 AM EDT Narrative 01/07/2007 9:10 AM EDT Procedure-MV MAMMO SCREEN W/CAD PANEL Mobile Screening Mammogram Bilateral CC and MLO view(s) were taken. No prior studies available for comparison. The breast tissue is almost entirely fat. IMPRESSION- No radiographic evidence of malignancy ? ([id number]) RECOMMENDATION- Routine screening mammogram in 1 year. * The patient with a palpable abnormality, unexplained by breast imaging, should be managed on clinical basis by the attending physician. * Breast imaging has a false negative rate of 15%. * The patient was notified by mail of the results of this examination. The mammogram was reviewed by a Radiologist and CAD. ? Hoop Maker Helper Machine- ZAIN CAMPOS ? Reading Radiologist- SCOTTY SHI ??MD ? Released Date Time- 01/07/07911 Procedure Note Scotty Shi R - 11/15/2009 Procedure-MV MAMMO SCREEN W/CAD PANEL Mobile Screening Mammogram Bilateral CC and MLO view(s) were taken. No prior studies available for comparison. The breast tissue is almost entirely fat. IMPRESSION- No radiographic evidence of malignancy ([id number]) RECOMMENDATION- Routine screening mammogram in 1 year. * The patient with a palpable abnormality, unexplained by breast imaging, should be managed on clinical basis by the attending physician. * Breast imaging has a false negative rate of 15%. * The patient was notified by mail of the results of this examination. The mammogram was reviewed by a Radiologist and CAD. Hoop Maker Helper Machine- ZAIN CAMPOS Reading Radiologist- SCOTTY SHI MD Released Date Time- 01/07/07911 [email or web address]ISTOR[facility] Final Result documented in this encounter Visit Diagnoses Not on filedocumented in this encounter
--- OUTSIDE RECORDS SUMMARY | 2024-07-22 16:21 | XMS_ITS | Encounter Summary ---
Author Organization [place] [address] Care Team Providers Care Ripening Room Attendant Name Role Phone Unavailable Primary Care Provider Unavailabl e Encounter Details Date Type Department Care Team (Late st Contact Info) Description 11/06/2005 Hospital Encounter [facility] Generic, Historical Provider Social History Tobacco Use Types Packs/Day Years [...] AM EST Appointment [facility] [address] [place] [address] Jomar Kim MD [address] [place] [address] Scheduled Orders Name Type Priority Associated Diagnoses Orde r Schedule XR KNEE 3 VIEWS LT Imaging Routine Once f or 1 Occurrences starting 12/21/2009 until 12/21/2009, 1 completed XR KNEE 3 VIEWS RT Imaging Routine Once f or 1 Occurrences starting 12/21/2009 until 12/21/2009, 1 completed documented as of this encounter Procedures Procedure Name Priority Date/Time Associated Diagnosis Comments DIAG KNEE 3 VIEWS LT Routine 11/06/2005 12:00 AM EST DIAG KNEE 3 VIEWS RT Routine 11/06/2005 12:00 AM EST documented in this encounter Results * XR KNEE 3 VIEWS RT (11/06/2005 12:00 AM EST) Anatomical Region Laterality Modality Other 11/06/2005 11/06/2005 Narrative 11/06/2005 12:00 AM EST VERIFIED [facility] Reason: ??PAIN Dict.Staff: YUE FRANCIS Verified By: SLOANE LUNA ?Getachew: 11/06/05 ?? 8:04 pm Exams: ??DIAG-KNEE 3-VIEWS LT DIAG-KNEE 3-VIEWS RT RIGHT AND LEFT KNEES, THREE VIEWS: 11-06-05 History: Pain. Mild bicompartmental osteoarthritis identified on the right with early joint space narrowing osteophytosis. ??Patellofemoral joint normal. ??There is no fracture, subluxation or periarticular abnormality. ??There is no joint effusion. On the left, more moderate osteoarthritis is noted involving both the medial and lateral compartments and early osteoarthritis of the patellofemoral joint as well. There is no effusion, fracture, subluxation or periarticular abnormality. 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 No acute abnormalities detected. No effusion or loose body. PENNY:ps end of result Procedure Note Unknown, U - 12/21/2009 VERIFIED [facility] Reason: PAIN Dict.Staff: YUE FRANCIS Verified By: SLOANE LUNA Getachew: 11/06/05 8:04 pm Exams: DIAG-KNEE 3-VIEWS LT DIAG-KNEE 3-VIEWS RT RIGHT AND LEFT KNEES, THREE VIEWS: 11-06-05 History: Pain. Mild bicompartmental osteoarthritis identified on the right with early joint space narrowing osteophytosis. Patellofemoral joint normal. There is no fracture, subluxation or periarticular abnormality. There is no joint effusion. On the left, more moderate osteoarthritis is noted involving both the medial and lateral compartments and early osteoarthritis of the patellofemoral joint as well. There is no effusion, fracture, subluxation or periarticular abnormality. 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 No acute abnormalities detected. No effusion or loose body. PENNY:ps end of result us U Unknown [facility] Final Result * XR KNEE 3 VIEWS LT (11/06/2005 12:00 AM EST) Anatomical Region Laterality Modality Other 11/06/2005 11/06/2005 Narrative 11/06/2005 12:00 AM EST VERIFIED [facility] Reason: ??PAIN Dict.Staff: YUE FRANCIS Verified By: SLOANE LUNA ?Getachew: 11/06/05 ?? 8:04 pm Exams: ??DIAG-KNEE 3-VIEWS LT DIAG-KNEE 3-VIEWS RT RIGHT AND LEFT KNEES, THREE VIEWS: 11-06-05 History: Pain. Mild bicompartmental osteoarthritis identified on the right with early joint space narrowing osteophytosis. ??Patellofemoral joint normal. ??There is no fracture, subluxation or periarticular abnormality. ??There is no joint effusion. On the left, more moderate osteoarthritis is noted involving both the medial and lateral compartments and early osteoarthritis of the patellofemoral joint as well. There is no effusion, fracture, subluxation or periarticular abnormality. 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 No acute abnormalities detected. No effusion or loose body. PENNY:ps end of result Procedure Note Unknown, U - 12/21/2009 VERIFIED [facility] Reason: PAIN Dict.Staff: YUE FRANCIS Verified By: SLOANE LUNA Getachew: 11/06/05 8:04 pm Exams: DIAG-KNEE 3-VIEWS LT DIAG-KNEE 3-VIEWS RT RIGHT AND LEFT KNEES, THREE VIEWS: 11-06-05 History: Pain. Mild bicompartmental osteoarthritis identified on the right with early joint space narrowing osteophytosis. Patellofemoral joint normal. There is no fracture, subluxation or periarticular abnormality. There is no joint effusion. On the left, more moderate osteoarthritis is noted involving both the medial and lateral compartments and early osteoarthritis of the patellofemoral joint as well. There is no effusion, fracture, subluxation or periarticular abnormality. 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 No acute abnormalities detected. No effusion or loose body. PENNY:ps end of result us U Unknown [facility] Final Result documented in this encounter Visit Diagnoses Not on filedocumented in this encounter
--- OUTSIDE RECORDS SUMMARY | 2024-07-22 16:21 | XMS_ITS | Encounter Summary ---
Author Organization [employer] [place] [address] Care Team Providers Care Script Girl Name Role Phone Unavailable Primary Care Provider Unavailabl e Reason for Visit * Reason Comments Oral Swelling since yesterday morn ing, roof of mouth swelling. c/o bernardino ear pain. Dizziness x1 week. @ times, t hings look funny . (inanimate objects) Encounter Details Date Type Department Care Team (Late st Contact Info) Description 01/01/2011 4:07 PM EDT - 01/01/2011 4:55 PM EDT Emergency [facility] [address] [facility] [place] [address] Win Barnes MD [address] [place] [id number] Bronchitis; Viral stomatitis Discharge Disposition: Home or Self Care Social History Tobacco Use Types Packs/Day Years Used Date Smoking Tobacco: Never Comments No Sex and Gender Information Value Date Recorded Sex Assigned at Not on file Legal Sex Female 10:34 PM EDT Gender Identity Not on file Sexual Orientation Not on file documented as of this encounter Last Filed Vital Signs Vital Sign Reading Time Taken Comments Blood Pressure 177/81 01/01/2011 3:57 PM EDT Pulse 71 01/01/2011 3:57 PM EDT Temperature 36.6 ??C (97.9 ??F) 01/01/2011 3:57 PM ED T Respiratory Rate 18 01/01/2011 3:57 PM EDT Oxygen Saturation 98% 01/01/2011 3:57 PM EDT Inhaled Oxygen Concentration - - Weight 129.7 kg (286 lb) 01/01/2011 3:57 PM EDT Height 162.6 cm (5' 4 ) 01/01/2011 3:57 PM EDT Body Mass Index 49.09 01/01/2011 3:57 PM EDT documented in this encounter Discharge Instructions * Discharge Instructions* Win Barnes MD - 01/01/2011 4:47 PM EDT Chloraseptic spray to tongue. Coricidin HBP [id number] for decongestant. * Attachments The following attachments cannot be sent through Care Everywhere. * BRONCHITIS, [id number] (PUERTO RICAN) * HYPERTENSION, [id number] (PUERTO RICAN) documented in this encounter Medications at Time of Discharge amoxicillin (AMOXIL) 500 mg capsule Take 1 Cap by mouth 3 times daily for 10 days. 30 Cap 0 01/01/2011 01/11/2011 MULTIVITAMIN ORAL Take by mouth. 01/16/2011 NAPROXEN SODIUM (ALEVE ORAL) Take by mouth daily as needed. 01/16/2011 documented as of this encounter Ordered Prescriptions Prescription Sig Dispense Quantity Refills Last Filled Start Date End Date amoxicillin (AMOXIL) 500 mg capsule Take 1 Cap by mouth 3 times daily for 10 days. 30 Cap 0 01/01/2011 01/11/2011 documented in this encounter Discharge Disposition Disposition Code Departure Means Destination Home or Self Care documented in this encounter Nursing Notes * Unknown, Unknown - 01/01/2011 6:14 PM EDT documented in this encounter ED Notes * Luzmaria Leigh, MATT - 01/01/2011 4:53 PM EDT Discharge instructions given to patient who verbalized understanding and posed no questions. Pt awake, alert, MMM and pink, respers easy and unlabored, NAD. Out of ED ambulatory. RX received - amoxil Designated drive with pt - N/A Pt verbalized understanding to not drive today - N/A * Win Barnes MD - 01/01/2011 4:48 PM EDT Chief Complaint Patient presents with ??? Oral Swelling since yesterday morning, roof of mouth swelling. c/o bernardino ear pain. ??? Dizziness x1 week. @ times, things look funny . (inanimate objects) HPI Comments: This is a 55-year-old female presents here complaints of one week of URI symptoms andcongestion. Those were she said yellow productive sputum. She is also now having left ear pain off and on. At times has felt somewhat lightheaded with a left ear pain. She denies syncope. She denies chest pain. This morning she awoke with what felt like blisters on the roof of her mouth. She gargled with salt water seemed to make it worse. She did go to [facility] and instructed her to come to the ED. She denies chest pain she denies syncope she denies abdominal pain. Allergies Allergen Reactions ??? No Known Allergies Home Medications: Prior to Admission medications Medication Sig Start Date End Date Taking? Authorizing Provider NAPROXEN SODIUM (ALEVE ORAL) Take by mouth daily as needed. Yes Historical Provider MULTIVITAMIN ORAL Take by mouth. Yes Historical Provider amoxicillin (AMOXIL) 500 mg capsule Take 1 Cap by mouth 3 times daily for 10 days. 01/01/11 01/11/11 Win Barnes MD Past Medical History: History reviewed. No pertinent past medical history. Social History: reports that she has never smoked. She does not have any smokeless tobacco history on file. Family History: History reviewed. No pertinent family history. Surgical History: History reviewed. No pertinent past surgical history. Review of Systems All other systems reviewed and are negative. Blood pressure 177/81, pulse 71, temperature 97.9 ??F (36.6 ??C), temperature source Oral, resp. rate 18, height 5' 4 (1.626 m), weight 286 lb (129.729 kg), last menstrual period Postmenopausal, SpO2 98%. Physical Exam Nursing note and vitals reviewed. Constitutional: She is oriented. She appears well-developed and well-nourished. No distress. HENT: Mouth/Throat: Oropharynx is clear and moist. 3-4 vesicular lesions over the tip of the tongue. Throat and growth of the mouth without lesions. Eyes: Conjunctivae and extraocular motions are normal. Pupils are equal, round, and reactive to light. Neck: Normal range of motion. Neck supple. Cardiovascular: Normal rate and regular rhythm. Exam reveals no gallop and no friction rub. No murmur heard. Pulmonary/Chest: Effort normal and breath sounds normal. Abdominal: Soft. Bowel sounds are normal. She exhibits no distension. No tenderness. Musculoskeletal: She exhibits no edema. Lymphadenopathy: She has no cervical adenopathy. Neurological: She is alert and oriented. Skin: Skin is warm and dry. No rash noted. Psychiatric: She has a normal mood and affect. Procedures Radiology/EKG/Labs: none ED Course: Appropriate laboratory and radiology studies reviewed Patient discharged on amoxicillin 3 times a day for 10 days. She is encouraged to use Chloraseptic spray to the tongue. Followup with her family doctor for recheck of her blood pressure. ED Clinical Impression: Acute bronchitis Viral stomatitis Critical Care time Condition at Discharge/Transfer from Department: Stable Win Barnes MD 01/01/11 1650 documented in this encounter Plan of Treatment Upcoming Encounters Date Type Department Care Team (Late st Contact Info) Description 07/29/2024 9:00 AM EST Appointment [facility] [address] [facility] [place] [address] Jomar Kim MD [address] [place] [address] documented as of this encounter Visit Diagnoses Diagnosis Bronchitis Bronchitis, not specified as acute or chronic Viral stomatitis Stomatitis and mucositis, unspecified documented in this encounter Historical Medications * This list may reflect changes made after this encounter. MULTIVITAMIN ORAL Take by mouth. 01/16/2011 NAPROXEN SODIUM (ALEVE ORAL) Take by mouth daily as needed. 01/16/2011 added in this encounter
--- OUTSIDE RECORDS SUMMARY | 2024-07-22 16:21 | XMS_ITS | Encounter Summary ---
Author Organization [place] [address] Care Team Providers Care Straight Truck Driver Name Role Phone Unavailable Primary Care Provider Unavailabl e Encounter Details Date Type Department Care Team (Late st Contact Info) Description 05/27/1992 11:22 PM EDT - 05/27/1992 11:59 PM EDT [facility] Social History Tobacco Use Types Packs/Day [...] 9:00 AM EST Appointment [facility] [address] [place], [place] [id number] Jomar Kim MD [address] [place] [address] documented as of this encounter Visit Diagnoses Not on filedocumented in this encounter
--- OUTSIDE RECORDS SUMMARY | 2024-07-22 16:21 | XMS_ITS | Encounter Summary ---
Author Organization [place] [address] Care Team Providers Care Sales Correspondent Name Role Phone Unavailable Primary Care Provider Unavailabl e Encounter Details Date Type Department Care Team (Late st Contact Info) Description 01/06/1992 1:16 PM EDT - 01/06/1992 11:59 PM EDT Hospital Encounter [facility] EP[facility] CON UN[facility] [address] [address] Social History Tobacco Use Types [...] EST Appointment [facility] [address] [place] [address] Jomar Kim MD [address] [place] [address] documented as of this encounter Visit Diagnoses Not on filedocumented in this encounter
--- OUTSIDE RECORDS SUMMARY | 2024-07-22 16:21 | XMS_ITS | Encounter Summary ---
Author Organization [place] [address] Care Team Providers Care Customer Contact Sales Associate Name Role Phone Unavailable Primary Care Provider Unavailabl e Encounter Details Date Type Department Care Team (Late st Contact Info) Description 11/19/1991 1:45 PM EST - 11/19/1991 11:59 PM EST Hospital Encounter [facility] EP[facility] CON UNK [address] [address] Social History Tobacco Use Types [...] EST Appointment [facility] [address] [place], [place] [id number] Jomar Kim MD [address] [place] [address] documented as of this encounter Visit Diagnoses Not on filedocumented in this encounter
--- OUTSIDE RECORDS SUMMARY | 2024-07-22 16:21 | XMS_ITS | Encounter Summary ---
Author Organization [place] [address] Care Team Providers Care Film Color Tester Name Role Phone Unavailable Primary Care Provider Unavailabl e Encounter Details Date Type Department Care Team (Late st Contact Info) Description 07/08/2000 6:10 AM EST - 07/08/2000 11:59 PM EST Hospital Encounter [facility] EK[facility] Alyssa Haney MD [address] [place] [address] Social History Tobacco Use Types Packs/Day Years [...] EST Appointment [facility] [address] [place] [address] Jomar Kim MD [address] [place] [address] documented as of this encounter Visit Diagnoses Not on filedocumented in this encounter
--- OUTSIDE RECORDS SUMMARY | 2024-07-22 16:21 | XMS_ITS | Encounter Summary ---
Author Organization [place] [address] Care Team Providers Care Fisher Eel Name Role Phone Unavailable Primary Care Provider Unavailabl e Encounter Details Date Type Department Care Team (Late st Contact Info) Description 10/22/2001 12:56 PM EST - 10/22/2001 2:25 PM EST Hospital Encounter [facility] Generic, Historical Provider Social History Tobacco Use [...] AM EST Appointment [facility] [address] [place] [address] Jomar Kim MD [address] [place] [address] documented as of this encounter Visit Diagnoses Not on filedocumented in this encounter
--- OUTSIDE RECORDS SUMMARY | 2024-07-22 16:21 | XMS_ITS | Encounter Summary ---
Author Organization [place] [address] Care Team Providers Care Broke Beater Name Role Phone Unavailable Primary Care Provider Unavailabl e Encounter Details Date Type Department Care Team (Late st Contact Info) Description 05/14/1992 6:32 PM EDT - 05/14/1992 11:59 PM EDT [facility] Tobacco Use Types Packs/Day Years [...] 9:00 AM EST Appointment [facility] [address] [place], [place] [id number] Jomar Kim MD [address] [place] [address] documented as of this encounter Visit Diagnoses Not on filedocumented in this encounter
--- OUTSIDE RECORDS SUMMARY | 2024-07-22 16:21 | XMS_ITS | Encounter Summary ---
Author Organization [place] [address] Care Team Providers Care Business Intelligence Etl Developer Name Role Phone Unavailable Primary Care Provider Unavailabl e Encounter Details Date Type Department Care Team (Late st Contact Info) Description 03/19/1992 5:20 PM EDT - 03/19/1992 11:59 PM EDT Hospital Encounter [facility] [place] [address] Social History Tobacco Use Types Packs/Day Years [...] EST Appointment [facility] [address] [place], [place] [id number] Jomar Kim MD [address] [place] [address] documented as of this encounter Visit Diagnoses Not on filedocumented in this encounter
--- OUTSIDE RECORDS SUMMARY | 2024-07-22 16:21 | XMS_ITS | Encounter Summary ---
Author Organization [place] [address] Care Team Providers Care Director [employer] Name Role Phone Unavailable Primary Care Provider Unavailabl e Encounter Details Date Type Department Care Team (Late st Contact Info) Description 06/02/1992 6:42 PM EDT - 06/06/1992 2:49 PM EDT Hospital Encounter [facility] [address] [place] [address] Social History Tobacco Use Types [...] AM EST Appointment [facility] [address] [place], [place] [phone] Jomar Kim MD [address] [place] [address] documented as of this encounter Visit Diagnoses Not on filedocumented in this encounter
--- OUTSIDE RECORDS SUMMARY | 2024-07-22 16:21 | XMS_ITS | Encounter Summary ---
Author Organization [place] [address] Care Team Providers Care Automatic Riveting Machine Operator Name Role Phone Unavailable Primary Care Provider Unavailabl e Encounter Details Date Type Department Care Team (Late st Contact Info) Description 03/17/1992 9:07 AM EDT - 03/17/1992 11:59 PM EDT Hospital Encounter [facility] EPIC CON [place] [address] Social History Tobacco Use Types [...] EST Appointment [facility] [address] [place], [place] [id number] Jomar Kim MD [address] [place] [address] documented as of this encounter Visit Diagnoses Not on filedocumented in this encounter
--- OUTSIDE RECORDS SUMMARY | 2024-07-22 16:21 | XMS_ITS | Encounter Summary ---
Author Organization [place] [address] Care Team Providers Care Alumni Relations Manager Name Role Phone Unavailable Primary Care Provider Unavailabl e Encounter Details Date Type Department Care Team (Late st Contact Info) Description 11/22/1991 2:18 PM EST - 11/23/1991 12:20 PM EST Hospital Encounter [facility] [place] [address] Social History Tobacco Use Types [...] AM EST Appointment [facility] [address] [place], [place] [address] Jomar Kmi MD [address] [place] [address] documented as of this encounter Visit Diagnoses Not on filedocumented in this encounter
--- OUTSIDE RECORDS SUMMARY | 2024-07-22 16:21 | XMS_ITS | Encounter Summary ---
Author Organization [place] [address] Care Team Providers Care Compensation And Benefits Analyst Name Role Phone Unavailable Primary Care Provider Unavailabl e Encounter Details Date Type Department Care Team (Late st Contact Info) Description 05/21/1992 9:52 AM EDT - 05/21/1992 11:59 PM EDT [facility] Social History Tobacco Use Types Packs/Day Years [...] 9:00 AM EST Appointment [facility] [address] [place], [place] [id number] Jomar Kim MD [address] [place] [address] documented as of this encounter Visit Diagnoses Not on filedocumented in this encounter
--- OUTSIDE RECORDS SUMMARY | 2024-07-22 16:21 | XMS_ITS | Encounter Summary ---
Author Organization [place] [address] Care Team Providers Care Firer [employer] Name Role Phone Unavailable Primary Care Provider Unavailabl e Encounter Details Date Type Department Care Team (Late st Contact Info) Description 07/27/2009 6:10 PM EST - 07/27/2009 8:28 PM EST Hospital Encounter [facility] Juventino Stone MD [address] [place] [phone] Social History Tobacco Use Types Packs/Day Years Used Date Smoking Tobacco: Never Assessed Comments Unknown Sex and Gender Information Value Date Recorded Sex Assigned at Not on file Legal Sex Female 10:34 PM EDT Gender Identity Not on file Sexual Orientation Not on file documented as of this encounter ED Notes * Unknown, Unknown - 12/11/2009 9:44 PM EDT documented in this encounter Plan of Treatment Upcoming Encounters Date Type Department Care Team (Late st Contact Info) Description 07/29/2024 9:00 AM EST Appointment [facility] [address] [place] [address] Jomar Kim MD [address] [place] [address] Scheduled Orders Name Type Priority Associated Diagnoses Orde r Schedule CT C-SPINE W/O CONTRAST Imaging Routine Once for 1 Occur rences starting 12/22/2009 until 12/22/2009, [address] HEAD W/O CONTRAST Imaging Routine Once for 1 Occurrences starting 12/22/2009 until 12/22/[address], [address] ABDOMEN W CONTRAST Imaging Routine Onc e for 1 Occurrences starting 12/22/2009 until 12/22/[address], [address] PELVIS W CONTRAST Imaging Routine Once for 1 Occurrences starting 12/22/2009 until 12/22/2009, 1 completed documented as of this encounter Procedures Procedure Name Priority Date/Time Associated Diagnosis Comments LIPASE LEVEL Routine 07/27/2009 6:[address] PELVIS W CONTRAST Routine 07/27/2009 12:[address] C-SPINE W/O CONTRAST Routine 07/27/2009 12:[address] ABDOMEN W CONTRAST Routine 07/27/2009 12:[address] HEAD W/O CONTRAST Routine 07/27/2009 12:00 AM EST documented in this encounter Results * LIPASE LEVEL (07/27/2009 6:30 PM EST) Lipase Lvl 14 10 - 71 U/L [facility] VENOUS BLOOD / Unknown 07/27/2009 6:30 PM EST 07/27/2009 6:44 PM EST Narrative [facility] - 07/27/2009 7:10 PM EST AKA:LIPASE: us Jimy Velazquez MD CHEMISTRY ORDERABLES Final Resu lt [facility] [address] [id number] [facility] * CT PELVIS W CONTRAST (07/27/2009 12:00 AM EST) Anatomical Region Laterality Modality Other 07/27/2009 07/27/2009 Narrative 07/27/2009 12:00 AM EST Name: ANDRES DE LA FUENTE : ??1955 VERIFIED [facility]LY [facility] Reason: ??FALL/ R/O TRAUMA IN FT 10 Dict.Staff: LOUISA VALERIO [id number] Verified By: JANIYA CAMPOS ?Getachew: 07/28/09 ?? 2:10 pm Exams: ??CT-ABDOMEN WITH CONTRAST ABDOMEN AND PELVIC CT WITH CONTRAST: CLINICAL HISTORY: 54 YEAR OLD STATUS-POST FALL. ??RIGHT UPPER QUADRANT PAIN. FINDINGS: Contiguous 5mm images were obtained through the abdomen and pelvis following intravenous contrast administration. ??Oral contrast not administered according to the thrombo protocol. 100ml Isovue 370 were administered without immediate reported complications. ??No comparison studies. ABDOMEN: Calcified left base pulmonary granuloma. ??Minimal left base atelectasis and/or scarring. ??No pleural effusions. ??No pneumothorax. Liver, spleen, pancreas, adrenal glands, and kidneys are within normal limits. ??The patient is status-post cholecystectomy. Lack of oral contrast limits evaluation of the bowel. ??Given this, small bowel unremarkable. ??Some of the images are degraded secondary to motion artifact. No free fluid identified. ??No perihepatic or perisplenic fluid. PELVIS: Incidentally noted is a small umbilical hernia containing mesenteric fat. Uterus and ovaries have an unremarkable CT appearance. ??No free fluid noted within the pelvis. ??During the examination, the patient's bladder was mildly distended and is unremarkable in appearance. Stool and air scattered throughout the colon. ??Redundant sigmoid colon. ??Otherwise, colon is grossly unremarkable. No fracture appreciated on these axial CT images. ??Bilateral degenerative changes of the sacroiliac joints noted. IMPRESSION: NO CT EVIDENCE OF ACUTE TRAUMATIC INJURY TO THE ABDOMEN OR PELVIS. TEODORO/jayant DICTATED ON JULY 27, 2009 @ 19:16 HOURS. end of result Procedure Note Unknown, U - 12/22/2009 Name: ANDRES DE LA FUENTE : 1955 VERIFIED [facility]LY [facility] Reason: FALL/ R/O TRAUMA IN FT 10 Dict.Staff: LOUISA VALERIO [id number] Verified By: JANIYA CAMPOS Getachew: 07/28/09 2:10 pm Exams: CT-ABDOMEN WITH CONTRAST ABDOMEN AND PELVIC CT WITH CONTRAST: CLINICAL HISTORY: 54 YEAR OLD STATUS-POST FALL. RIGHT UPPER QUADRANT PAIN. FINDINGS: Contiguous 5mm images were obtained through the abdomen and pelvis following intravenous contrast administration. Oral contrast not administered according to the thrombo protocol. 100ml Isovue 370 were administered without immediate reported complications. No comparison studies. ABDOMEN: Calcified left base pulmonary granuloma. Minimal left base atelectasis and/or scarring. No pleural effusions. No pneumothorax. Liver, spleen, pancreas, adrenal glands, and kidneys are within normal limits. The patient is status-post cholecystectomy. Lack of oral contrast limits evaluation of the bowel. Given this, small bowel unremarkable. Some of the images are degraded secondary to motion artifact. No free fluid identified. No perihepatic or perisplenic fluid. PELVIS: Incidentally noted is a small umbilical hernia containing mesenteric fat. Uterus and ovaries have an unremarkable CT appearance. No free fluid noted within the pelvis. During the examination, the patient's bladder was mildly distended and is unremarkable in appearance. Stool and air scattered throughout the colon. Redundant sigmoid colon. Otherwise, colon is grossly unremarkable. No fracture appreciated on these axial CT images. Bilateral degenerative changes of the sacroiliac joints noted. IMPRESSION: NO CT EVIDENCE OF ACUTE TRAUMATIC INJURY TO THE ABDOMEN OR PELVIS. TEODORO/jayant DICTATED ON JULY 27, 2009 @ 19:16 HOURS. end of result us U Unknown [facility] HISTORICAL Final Result * CT ABDOMEN W CONTRAST (07/27/2009 12:00 AM EST) Anatomical Region Laterality Modality Other 07/27/2009 07/27/2009 Narrative 07/27/2009 12:00 AM EST Name: ANDRES DE LA FUENTE : ??1955 VERIFIED [facility]LY [facility] Reason: ??FALL/ R/O TRAUMA IN FT 10 Dict.Staff: LOUISA VALERIO [id number] Verified By: JANIYA CAMPOS ?Getachew: 07/28/09 ?? 2:10 pm Exams: ??CT-ABDOMEN WITH CONTRAST ABDOMEN AND PELVIC CT WITH CONTRAST: CLINICAL HISTORY: 54 YEAR OLD STATUS-POST FALL. ??RIGHT UPPER QUADRANT PAIN. FINDINGS: Contiguous 5mm images were obtained through the abdomen and pelvis following intravenous contrast administration. ??Oral contrast not administered according to the thrombo protocol. 100ml Isovue 370 were administered without immediate reported complications. ??No comparison studies. ABDOMEN: Calcified left base pulmonary granuloma. ??Minimal left base atelectasis and/or scarring. ??No pleural effusions. ??No pneumothorax. Liver, spleen, pancreas, adrenal glands, and kidneys are within normal limits. ??The patient is status-post cholecystectomy. Lack of oral contrast limits evaluation of the bowel. ??Given this, small bowel unremarkable. ??Some of the images are degraded secondary to motion artifact. No free fluid identified. ??No perihepatic or perisplenic fluid. PELVIS: Incidentally noted is a small umbilical hernia containing mesenteric fat. Uterus and ovaries have an unremarkable CT appearance. ??No free fluid noted within the pelvis. ??During the examination, the patient's bladder was mildly distended and is unremarkable in appearance. Stool and air scattered throughout the colon. ??Redundant sigmoid colon. ??Otherwise, colon is grossly unremarkable. No fracture appreciated on these axial CT images. ??Bilateral degenerative changes of the sacroiliac joints noted. IMPRESSION: NO CT EVIDENCE OF ACUTE TRAUMATIC INJURY TO THE ABDOMEN OR PELVIS. TEODORO/jayant DICTATED ON JULY 27, 2009 @ 19:16 HOURS. end of result Procedure Note Unknown, U - 12/22/2009 Name: ANDRES DE LA FUENTE : 1955 VERIFIED [facility]LY [facility] Reason: FALL/ R/O TRAUMA IN FT 10 Dict.Staff: LOUISA VALERIO [id number] Verified By: JANIYA CAMPOS Getachew: 07/28/09 2:10 pm Exams: CT-ABDOMEN WITH CONTRAST ABDOMEN AND PELVIC CT WITH CONTRAST: CLINICAL HISTORY: 54 YEAR OLD STATUS-POST FALL. RIGHT UPPER QUADRANT PAIN. FINDINGS: Contiguous 5mm images were obtained through the abdomen and pelvis following intravenous contrast administration. Oral contrast not administered according to the thrombo protocol. 100ml Isovue 370 were administered without immediate reported complications. No comparison studies. ABDOMEN: Calcified left base pulmonary granuloma. Minimal left base atelectasis and/or scarring. No pleural effusions. No pneumothorax. Liver, spleen, pancreas, adrenal glands, and kidneys are within normal limits. The patient is status-post cholecystectomy. Lack of oral contrast limits evaluation of the bowel. Given this, small bowel unremarkable. Some of the images are degraded secondary to motion artifact. No free fluid identified. No perihepatic or perisplenic fluid. PELVIS: Incidentally noted is a small umbilical hernia containing mesenteric fat. Uterus and ovaries have an unremarkable CT appearance. No free fluid noted within the pelvis. During the examination, the patient's bladder was mildly distended and is unremarkable in appearance. Stool and air scattered throughout the colon. Redundant sigmoid colon. Otherwise, colon is grossly unremarkable. No fracture appreciated on these axial CT images. Bilateral degenerative changes of the sacroiliac joints noted. IMPRESSION: NO CT EVIDENCE OF ACUTE TRAUMATIC INJURY TO THE ABDOMEN OR PELVIS. TEODORO/jayant DICTATED ON JULY 27, 2009 @ 19:16 HOURS. end of result us U Unknown [facility]ISTOR[facility] Final Result * CT HEAD W/O CONTRAST (07/27/2009 12:00 AM EST) Anatomical Region Laterality Modality Other 07/27/2009 07/27/2009 Narrative 07/27/2009 12:00 AM EST Name: ANDRES DE LA FUENTE : ??1955 VERIFIED FOR[facility]LY [facility] Reason: ??FALL/DIZZY IN FT 10 Dict.Staff: LOUISA VALERIO [id number] Verified By: JANIYA CAMPOS ?Getachew: 07/28/09 ?? 1:37 pm Exams: ??CT-HEAD W/O CONTRAST CT HEAD WITHOUT CONTRAST: 07-27-09 Clinical history: 54 year old who fell, dizzy, evaluate. Contiguous 5mm images were obtained through the brain without IV contrast. No comparisons. Patient's head was tilted in the gantry. Given this, ventricles are normal in size, shape and configuration. Christiansen-white matter differentiation preserved. No mass effect, midline shift, extra-axial fluid collection or evidence of acute intracranial hemorrhage. Visualized portions of the paranasal sinuses and mastoid air cells are well aerated. No skull fracture appreciated on these axial CT images. IMPRESSION: No CT evidence of an acute intracranial process. TEODORO:chelsea Dictated 07-27-09 @ 19:11 end of result Procedure Note Unknown, U - 12/22/2009 Name: ANDRES DE LA FUENTE : 1955 VERIFIED [facility] Reason: FALL/DIZZY IN FT 10 Dict.Staff: LOUISA VALERIO [id number] Verified By: JANIYA CAMPOS Getachew: 07/28/09 1:37 pm Exams: CT-HEAD W/O CONTRAST CT HEAD WITHOUT CONTRAST: 07-27-09 Clinical history: 54 year old who fell, dizzy, evaluate. Contiguous 5mm images were obtained through the brain without IV contrast. No comparisons. Patient's head was tilted in the gantry. Given this, ventricles are normal in size, shape and configuration. Christiansen-white matter differentiation preserved. No mass effect, midline shift, extra-axial fluid collection or evidence of acute intracranial hemorrhage. Visualized portions of the paranasal sinuses and mastoid air cells are well aerated. No skull fracture appreciated on these axial CT images. IMPRESSION: No CT evidence of an acute intracranial process. TEODORO:chelsea Dictated 07-27-09 @ 19:11 end of result us U Unknown [facility]IST[facility] Final Result * CT C-SPINE W/O CONTRAST (07/27/2009 12:00 AM EST) Anatomical Region Laterality Modality Other 07/27/2009 07/27/2009 Narrative 07/27/2009 12:00 AM EST Name: ANDRES DE LA FUENTE : ??1955 VERIFIED [facility]LY [facility] Reason: ??FALL IN FT 10 ?ENTIRE Dict.Staff: LOUISA VALERIO [id number] Verified By: JANIYA CAMPOS ?Getachew: 07/28/09 ?? 1:37 pm Exams: ??CT-C SPINE W/O CONTRAST CT CERVICAL SPINE: 07-27-09 Clinical history: 54 year old status-post fall this morning. Posterior neck pain, evaluate. Contiguous thin cut axial CT images were obtained through the cervical spine without IV contrast. Sagittal and coronal reconstructed images were provided. Compare: None. FINDINGS: Images were obtained from the skull base through the upper thoracic spine. Vertebral bodies C1 through C7 visualized and are intact. Vertebral body heights preserved. Mild C4-5 and mild to moderate C5-6 and C6-7 disc space narrowing. Furthermore, C4, C5 and C6 hypertrophic spurring. Additionally, some endplate sclerosis and irregularity involving C5-6 and C6-7. furthermore, some vacuum disc phenomena and small Schmorl node noted at C5-6 and vacuum disc phenomena noted at C6-7. No acute fracture lines identified. Visualized portions of the paranasal sinuses and mastoid air cells are well aerated. Visualized portions of the lung apices clear. Visualized portions of the airway patent. Soft tissue and fat planes preserved. IMPRESSION: No CT evidence of an acute fracture to the cervical spine. Degenerative disc disease most pronounced at C5-6 and C6-7. If the patient has clinical symptoms of cervical radiculopathy, MR examination may be beneficial. TEODORO:chelsea Dictated 07-27-09 @ 19:11 end of result Procedure Note Unknown, U - 12/22/2009 Name: ANDRES DE LA FUENTE : 1955 VERIFIED [facility]LY [facility] Reason: FALL IN FT 10 ENTIRE Dict.Staff: LOUISA VALERIO [id number] Verified By: JANIYA CAMPOS Getachew: 07/28/09 1:37 pm Exams: CT-C SPINE W/O CONTRAST CT CERVICAL SPINE: 07-27-09 Clinical history: 54 year old status-post fall this morning. Posterior neck pain, evaluate. Contiguous thin cut axial CT images were obtained through the cervical spine without IV contrast. Sagittal and coronal reconstructed images were provided. Compare: None. FINDINGS: Images were obtained from the skull base through the upper thoracic spine. Vertebral bodies C1 through C7 visualized and are intact. Vertebral body heights preserved. Mild C4-5 and mild to moderate C5-6 and C6-7 disc space narrowing. Furthermore, C4, C5 and C6 hypertrophic spurring. Additionally, some endplate sclerosis and irregularity involving C5-6 and C6-7. furthermore, some vacuum disc phenomena and small Schmorl node noted at C5-6 and vacuum disc phenomena noted at C6-7. No acute fracture lines identified. Visualized portions of the paranasal sinuses and mastoid air cells are well aerated. Visualized portions of the lung apices clear. Visualized portions of the airway patent. Soft tissue and fat planes preserved. IMPRESSION: No CT evidence of an acute fracture to the cervical spine. Degenerative disc disease most pronounced at C5-6 and C6-7. If the patient has clinical symptoms of cervical radiculopathy, MR examination may be beneficial. Santos Goldberg 07-27-09 @ 19:11 end of result us U Unknown [facility]ISTOR[facility] Final Result documented in this encounter Visit Diagnoses Not on filedocumented in this encounter
--- OUTSIDE RECORDS SUMMARY | 2024-07-22 16:21 | XMS_ITS | Encounter Summary ---
Author [place] [address] Care Team Providers Care Lab Rn Name Role Phone Unavailable Primary Care Provider Unavailabl e Encounter Details Date Type Department Care Team (Late st Contact Info) Description 05/09/1992 4:21 AM EDT - 05/09/1992 11:59 PM EDT Hospital Encounter [facility] [address] [phone] Social History Tobacco Use Types [...] EST Appointment [facility] [address] [place], [place] [id number] Jomar Kim MD [address] [place] [address] documented as of this encounter Visit Diagnoses Not on filedocumented in this encounter
--- OUTSIDE RECORDS SUMMARY | 2024-07-22 16:21 | XMS_ITS | Encounter Summary ---
Author Organization [place] [address] Care Team Providers Care Operations Staff Specialist Security Name Role Phone Unavailable Primary Care Provider Unavailabl e Encounter Details Date Type Department Care Team (Late st Contact Info) Description 10/15/1991 1:50 PM EST - 10/15/1991 11:59 PM EST Hospital Encounter [facility] [address] [phone] Social History Tobacco Use Types [...] EST Appointment [facility] [address] [place], [place] [id number] Jomar Kim MD [address] [place] [address] documented as of this encounter Visit Diagnoses Not on filedocumented in this encounter
--- OUTSIDE RECORDS SUMMARY | 2024-07-22 16:21 | XMS_ITS | Encounter Summary ---
Author Organization [place] [address] Care Team Providers Care Technical Sales Consultant Name Role Phone Unavailable Primary Care Provider Unavailabl e Reason for Visit * Reason Comments Fall Fell over concrete. C/O left arm pain, rib pain, upper back, and bilateral knee pain and nose soreness. ?LOC. Encounter Details Date Type Department Care Team (Late st Contact Info) Description 01/16/2011 8:54 PM EDT - 01/16/2011 11:12 PM EDT Emergency [facility] [address] [place] [id number] Tigist Farnsworth MD [address] [place] [id number] Multiple contusions Discharge Disposition: Home or Self Care Social [...] Sign Reading Time Taken Comments Blood Pressure 133/69 01/16/2011 11:10 PM EDT Pulse 71 01/16/2011 11:10 PM EDT Temperature 36.1 ??C (97 ??F) 01/16/2011 8:16 PM EDT Respiratory Rate 18 01/16/2011 11:10 PM EDT Oxygen Saturation 100% 01/16/2011 11:10 PM EDT Inhaled Oxygen Concentration - - Weight 117.9 kg (260 lb) 01/16/2011 8:16 PM EDT Height 162.6 cm (5' 4 ) 01/16/2011 8:16 PM EDT Body Mass Index 44.63 01/16/2011 8:16 PM EDT documented in this encounter Discharge Instructions * Discharge Instructions* Tigist Farnsworth MD - 01/16/2011 10:48 PM EDT Ice every 3 hours over the next 24 hour period to all affected area. Light activity for the next 3-5 days. Followup with primary care physician or orthopedics as recommended in the next 3-5 days. documented in this encounter Medications at Time of Discharge ibuprofen (MOTRIN) 600 mg tablet Take 1 Tab by mouth every 8 hours. 15 Tab 0 01/16/2011 07/04/2011 documented as of this encounter Ordered Prescriptions Prescription Sig Dispense Quantity Refills Last Filled Start Date End Date ibuprofen (MOTRIN) 600 mg tablet Take 1 Tab by mouth every 8 hours. 15 Tab 0 01/16/2011 07/04/2011 documented in this encounter Discharge Disposition Disposition Code Departure Means Destination Home or Self [facility] documented in this encounter Progress Notes * Unknown, Unknown - 01/16/2011 8:02 PM EDT documented in this encounter Nursing Notes * Unknown, Unknown - 01/16/2011 11:47 PM EDT documented in this encounter ED Notes * Ana Arriola RN - 01/16/2011 11:12 PM EDT Discharge instructions given to patient and daughter who verbalized understanding and posed no questions. Pt awake, alert, MMM and pink, respirations easy and unlabored. Out of ED ambulatory. RX received - yes Designated drive with pt - yes Pt verbalized understanding to not drive today - yes Condition: good * Tigist Farnsworth MD - 01/16/2011 10:05 PM EDT Chief Complaint Patient presents with ??? Fall Fell over concrete. C/O left arm pain, rib pain, upper back, and bilateral knee pain and nose soreness. ?LOC. HPI Comments: Patient is a 55 years old white female who tripped over a pothole and fell forward onconcrete ground this morning. Patient complained of pain in multiple locations including her nasal area bilateral shoulder achiness. She had low back pain. She also complained of pain in the left knee and right ankle. She had no loss of consciousness. She denies any neurological symptoms. There is no abdominal pain. She had no shortness of breath. There is no vomiting. The history is provided by the patient. Allergies Allergen Reactions ??? No Known Allergies Home Medications: Prior to Admission medications Not on File Past Medical History: History reviewed. No pertinent past medical history. Social History: reports that she has never smoked. She does not have any smokeless tobacco history on file. She reports that she does not currently drink alcohol. Family History: History reviewed. No pertinent family history. Surgical History: Past Surgical History Procedure Date ??? Cholecystectomy Review of Systems Constitutional: Negative for fever and chills. Eyes: Negative. Respiratory: Negative for cough and shortness of breath. Cardiovascular: Negative for chest pain, palpitations and leg swelling. Gastrointestinal: Negative for nausea, vomiting, abdominal pain and diarrhea. Genitourinary: Negative for dysuria and frequency. Musculoskeletal: Positive for back pain. Skin: Negative for rash. Neurological: Negative. Psychiatric/Behavioral: Negative. All other systems reviewed and are negative. Blood pressure 140/77, pulse 76, temperature 97 ??F (36.1 ??C), temperature source Oral, resp. rate12, height 5' 4 (1.626 m), weight 260 lb (117.935 kg), last menstrual period Postmenopausal, SpO2 100%. Physical Exam Nursing note and vitals reviewed. Constitutional: She is oriented. She appears well-developed and well-nourished. No distress. HENT: Mouth/Throat: Oropharynx is clear and moist. There is no obvious facial trauma noted. There is no nasal swelling or deformity. Subjective tenderness to palpation of the nasal bone. Scalp without hematoma. There is no cervical tenderness with palpation. Eyes: Conjunctivae and extraocular motions are normal. Pupils are equal, round, and reactive to light. Neck: Normal range of motion. Neck supple. Cardiovascular: Normal rate and regular rhythm. Exam reveals no gallop and no friction rub. No murmur heard. Pulmonary/Chest: Effort normal and breath sounds normal. Abdominal: Soft. Bowel sounds are normal. She exhibits no distension. No tenderness. Musculoskeletal: Subjective tenderness to palpation in the lower lumbar area. No erythema or ecchymosis. Extremities without deformities swelling or erythema noted. Bilateral shoulder without tenderness to palpation. Good range of motion actively. Distal neurovascular is normal. There is tenderness to palpation of the left anterior knee. Minimal erythema or swelling. Adequate passive range of motion noted. Right ankle no tenderness to palpation. Minimal swelling. No deformity. No joint laxity with stressexamination. Good pedal pulse. Lymphadenopathy: She has no cervical adenopathy. Neurological: She is alert and oriented. Skin: Skin is warm and dry. No rash noted. Psychiatric: She has a normal mood and affect. Procedures Radiology/EKG/Labs: X-rays ordered and read by me. Interpretation is in agreement with radiology. Results for orders placed during the hospital encounter of 01/16/11 XR CHEST PA AND LATERAL Narrative: Chest, 2 views, 01/16/2011. INDICATIONS: Trauma. Two-view chest shows borderline enlarged heart. The lungs are clear. There is no pneumothorax. The costophrenic sulci are sharp. There is thoracic degenerative change without acute fracture noted. Impression: IMPRESSION: 1. No acute chest process. XR LUMBAR SPINE AP AND LATERAL Narrative: Lumbar spine, 3 views, 01/16/2011. INDICATIONS: Fall, pain. Three views lumbosacral spine show degenerative changes from L3-L4 through L5-S1 including intervertebral narrowing and facet sclerosis. There is no acute fracture or subluxation. No lytic lesion identified. Impression: IMPRESSION: 1. Lumbar DJD, no acute fracture. XR NASAL BONES Narrative: Nasal bones, 3 views, 01/16/2011. INDICATIONS: Trauma, pain. Three views nasal bones show no fracture or dislocation the osseous structures are intact. Impression: IMPRESSION: 1. Normal nasal bones. XR ANKLE RIGHT AP LATERAL AND OBLIQUE Narrative: Right ankle, 3 views, 01/16/2011. INDICATIONS: Trauma, pain. Three views right ankle show chronic ankle osteoarthritis. There is no acute fracture or dislocation identified. There is also midfoot degenerative change present. Impression: IMPRESSION: 1. Ankle osteoarthritis without acute fracture. XR KNEE LEFT AP LATERAL INTERNAL AND EXTERNAL OBLIQUES Narrative: Left knee, 4 views, 01/16/2011. INDICATIONS: Trauma, pain. Four views left knee show tricompartmental osteoarthritis. There is no joint effusion or acute fracture noted. Impression: IMPRESSION: 1. Left knee osteoarthritis. ED Course: Appropriate laboratory and radiology studies reviewed Patient resting comfortably throughout the ED stay. Repeat vital signs are stable. Patient had no new complaint. On repeat assessment patient had no new physical findings. Result discussed with patient. Joce wrap applied to the left knee and right ankle. Patient is discharged home with Motrin prescribed for pain. Orthopedic referral for followup. ED Clinical Impression: Multiple contusions Lumbar strain Right ankle sprain Critical Care time Condition at Discharge/Transfer from Department: Stable Tigist Farnsworth MD 01/17/11 0100 documented in this encounter Plan of Treatment Upcoming Encounters Date Type Department Care Team (Late st Contact Info) Description 07/29/2024 9:00 AM EST Appointment [facility] [address] [place] [address] Jomar Kim MD [address] [place] [address] documented as of this encounter Procedures Procedure Name Priority Date/Time Associated Diagnosis Comments XR ANKLE RIGHT AP LATERAL AND OBLIQUE JORGE LUIS 01/16/2011 10:13 PM EDT XR KNEE LEFT AP LATERAL INTERNAL AND EXTERNAL OBLIQUES JORGE LUIS 01/16/2011 10:13 PM EDT XR NASAL BONES JORGE LUIS 01/16/2011 10:12 PM EDT XR LUMBAR SPINE AP AND LATERAL JORGE LUIS 01/16/2011 10:11 PM EDT XR CHEST PA AND LATERAL JORGE LUIS 01/16/2011 10:11 PM EDT documented in this encounter Results * XR ANKLE RIGHT AP LATERAL AND OBLIQUE (01/16/2011 10:13 PM EDT) Anatomical Region Laterality Modality Ankle Radiographic Faby ging 01/16/2011 9:40 PM EDT Impressions 01/16/2011 10:15 PM EDT IMPRESSION: 1. Ankle osteoarthritis without acute fracture. Narrative 01/16/2011 10:15 PM EDT Right ankle, 3 views, 01/16/2011. INDICATIONS: Trauma, pain. Three views right ankle show chronic ankle osteoarthritis. There is no acute fracture or dislocation identified. There is also midfoot degenerative change present. Procedure Note Stone Craig - 01/16/2011 Right ankle, 3 views, 01/16/2011. INDICATIONS: Trauma, pain. Three views right ankle show chronic ankle osteoarthritis. There is noacute fracture or dislocation identified. There is also midfoot degenerative changepresent. IMPRESSION: 1. Ankle osteoarthritis without acute fracture. Tigist Farnsworth MD [facility]NOST[facility] IMAGING ORDERABLE S Final Result * XR KNEE LEFT AP LATERAL INTERNAL AND EXTERNAL OBLIQUES (01/16/2011 10:13 PM EDT) Anatomical Region Laterality Modality Knee Radiographic Faby ging 01/16/2011 10:1 3 PM EDT Impressions 01/16/2011 10:17 PM EDT IMPRESSION: 1. Left knee osteoarthritis. Narrative 01/16/2011 10:17 PM EDT Left knee, 4 views, 01/16/2011. INDICATIONS: Trauma, pain. Four views left knee show tricompartmental osteoarthritis. There is no joint effusion or acute fracture noted. Procedure Note Stone Craig - 01/16/2011 Left knee, 4 views, 01/16/2011. INDICATIONS: Trauma, pain. Four views left knee show tricompartmental osteoarthritis. There is nojoint effusion or acute fracture noted. IMPRESSION: 1. Left knee osteoarthritis. Tigist Farnsworth MD [facility] ORDERABLE S Final Result * XR NASAL BONES (01/16/2011 10:12 PM EDT) Anatomical Region Laterality Modality Head Radiographic Faby ging 01/16/2011 9:40 PM EDT Impressions 01/16/2011 10:16 PM EDT IMPRESSION: 1. Normal nasal bones. Narrative 01/16/2011 10:16 PM EDT Nasal bones, 3 views, 01/16/2011. INDICATIONS: Trauma, pain. Three views nasal bones show no fracture or dislocation the osseous structures are intact. Procedure Note Stone Craig - 01/16/2011 Nasal bones, 3 views, 01/16/2011. INDICATIONS: Trauma, pain. Three views nasal bones show no fracture or dislocation the osseousstructures are intact. IMPRESSION: 1. Normal nasal bones. Result [facility] Tigist Farnsworth MD [facility] ORDER[facility] S Final Result * XR LUMBAR SPINE AP AND LATERAL (01/16/2011 10:11 PM EDT) Anatomical Region Laterality Modality L-spine Radiographic Faby ging 01/16/2011 9:40 PM EDT Impressions 01/16/2011 10:16 PM EDT IMPRESSION: 1. Lumbar DJD, no acute fracture. Narrative 01/16/2011 10:16 PM EDT Lumbar spine, 3 views, 01/16/2011. INDICATIONS: Fall, pain. Three views lumbosacral spine show degenerative changes from L3-L4 through L5-S1 including intervertebral narrowing and facet sclerosis. There is no acute fracture or subluxation. No lytic lesion identified. Procedure Note Stone Craig - 01/16/2011 Lumbar spine, 3 views, 01/16/2011. INDICATIONS: Fall, pain. Three views lumbosacral spine show degenerative changes from L3-L4 throughL5-S1 including intervertebral narrowing and facet sclerosis. There is no acute fractureor subluxation. No lytic lesion identified. IMPRESSION: 1. Lumbar DJD, no acute fracture. Result [facility] Tigist Farnsworth MD [facility] ORDER[facility] S Final Result * XR CHEST PA AND LATERAL (01/16/2011 10:11 PM EDT) Anatomical Region Laterality Modality Chest Radiographic Faby ging 01/16/2011 9:40 PM EDT Impressions 01/16/2011 10:18 PM EDT IMPRESSION: 1. No acute chest process. Narrative 01/16/2011 10:18 PM EDT Chest, 2 views, 01/16/2011. INDICATIONS: Trauma. Two-view chest shows borderline enlarged heart. The lungs are clear. There is no pneumothorax. The costophrenic sulci are sharp. There is thoracic degenerative change without acute fracture noted. Procedure Note Stone Craig - 01/16/2011 Chest, 2 views, 01/16/2011. INDICATIONS: Trauma. Two-view chest shows borderline enlarged heart. The lungs are clear. Thereis no pneumothorax. The costophrenic sulci are sharp. There is thoracic degenerative change without acute fracture noted. IMPRESSION: 1. No acute chest process. Tigist [facility]ING ORDERABLE S Final Result documented in this encounter Visit Diagnoses Diagnosis Multiple contusions Contusion of unspecified site documented in this encounter Administered Medications Inactive Administered Medications - up to 1 most recent administrations Medication Order MAR Action Action Date Dose Rate Site hydrocodone-acetaminophen (VICODIN) 5-500 mg per tablet 1 Tab 1 Tablet, Oral, ONCE, 1 dose, On Fri01/16/11 at 2300, Maximum dose of acetaminophen is 4000 mg from all sources in 24 hours. Given 01/16/2011 11:00 PM EDT 1 Tablet documented in this encounter Discontinued Medications Medication Sig Discontinue Reason Start Date End Da te MULTIVITAMIN ORAL Take by mouth. 01/16/2011 NAPROXEN SODIUM (ALEVE ORAL) Take by mouth daily as needed. 01/16/2011 documented as of this encounter Active and Recently Administered Medications Times are shown in EDT. Scheduled Medication Order 01/14/2011 01/15/2011 01/16/2011 hydrocodone-acetaminophen (VICODIN) 5-500 mg per tablet 1 Tab (COMPLETED) 1 Tablet, Oral, ONCE, 1 dose, On Fri01/16/11 at 2300, Maximum dose of acetaminophen is 4000 mg from all sources in 24 hours. 2300 (Given - Provid er: Jazzy Stewart RN) documented in this encounter Orders Nursing Count Last Ordered Date First Orde red Date JOCE WRAP 1 01/16/2011 documented in this encounter
--- OUTSIDE RECORDS SUMMARY | 2024-07-22 16:21 | XMS_ITS | Encounter Summary ---
Author Organization [place] [address] Care Team Providers Care Rotary Slicing Machine Operator Name Role Phone Unavailable Primary Care Provider Unavailabl e Encounter Details Date Type Department Care Team (Late st Contact Info) Description 10/11/2000 4:45 PM EST - 10/11/2000 5:59 PM EST Hospital Encounter [facility] Douglas Gao MD Social History Tobacco Use Types Packs/Day Years [...] EST [facility]ment [facility] [address] [facility] [place], [place] [id number] Jomar Kim MD [address] [place], [place] [id number] documented as of this encounter Visit Diagnoses Not on filedocumented in this encounter
--- OUTSIDE RECORDS SUMMARY | 2024-07-22 16:21 | XMS_ITS | Encounter Summary ---
Author Organization [place] [address] Care Team Providers Care Administrative Intern Name Role Phone Unavailable Primary Care Provider Unavailabl e Encounter Details Date Type Department Care Team (Late st Contact Info) Description 05/22/1992 7:13 PM EDT - 05/22/1992 11:59 PM EDT Hospital Encounter [facility] [address] [phone] Social History Tobacco Use Types [...] EST Appointment [facility] [address] [place] [address] Jomar Kim MD [address] [place] [address] documented as of this encounter Visit Diagnoses Not on filedocumented in this encounter
--- OUTSIDE RECORDS SUMMARY | 2024-07-22 16:21 | XMS_ITS | Encounter Summary ---
Author Organization [place] [address] Care Team Providers Care Senior Corporate Accountant Name Role Phone Unavailable Primary Care Provider Unavailabl e Encounter Details Date Type Department Care Team (Late st Contact Info) Description 07/07/1992 1:48 PM EST - 07/07/1992 11:59 PM EST Hospital Encounter [facility] Byron Garibay MD [address] [place] [address] Social History Tobacco Use Types Packs/Day Years [...] AM EST Appointment [facility] [address] [place], [place] [phone] Jomar Kim MD [address] [place] [address] documented as of this encounter Visit Diagnoses Not on filedocumented in this encounter
--- OUTSIDE RECORDS SUMMARY | 2024-07-22 16:21 | XMS_ITS | Encounter Summary ---
Author Organization [place] [address] Care Team Providers Care Renewable Energy Consultant Name Role Phone Unavailable Primary Care Provider Unavailabl e Encounter Details Date Type Department Care Team (Late st Contact Info) Description 03/13/1992 2:56 PM EDT - 03/13/1992 11:59 PM EDT Hospital Encounter [facility] [address] [phone] Social History Tobacco Use Types [...] EST Appointment [facility] [address] [place] [address] Jomar Kim MD [address] [place] [address] documented as of this encounter Visit Diagnoses Not on filedocumented in this encounter
--- OUTSIDE RECORDS SUMMARY | 2024-07-22 16:21 | XMS_ITS | Encounter Summary ---
Author Organization [place] [address] Care Team Providers Care Roller Skater Name Role Phone Unavailable Primary Care Provider Unavailabl e Encounter Details Date Type Department Care Team (Late st Contact Info) Description 11/17/2004 8:30 PM EST - 11/17/2004 11:30 PM EST Hospital Encounter [facility], Historical Provider Social History Tobacco Use Types Packs/Day Years Used Date Smoking Tobacco: Never Assessed Comments Unknown Sex and Gender Information Value Date Recorded Sex Assigned at Not on file Legal Sex Female 10:34 PM EDT Gender Identity Not on file Sexual Orientation Not on file documented as of this encounter ED Notes * Unknown, Unknown - 01/31/2010 4:56 AM EDT documented in this encounter Plan of Treatment Upcoming Encounters Date Type Department Care Team (Late st Contact Info) Description 07/29/2024 9:00 AM EST Appointment [facility] [address] [place] [address] Jomar Kim MD [address] [place] [address] documented as of this encounter Visit Diagnoses Not on filedocumented in this encounter
--- OUTSIDE RECORDS SUMMARY | 2024-07-22 16:21 | XMS_ITS | Encounter Summary ---
Author Organization [place] [address] Care Team Providers Care Processing Assistant Name Role Phone Unavailable Primary Care Provider Unavailabl e Encounter Details Date Type Department Care Team (Late st Contact Info) Description 06/08/1992 2:10 AM EDT - 06/08/1992 11:59 PM EDT Hospital Encounter [facility] [address] [phone] Social History Tobacco Use Types [...] EST Appointment [facility] [address] [place], [place] [phone] Jomar Kim MD [address] [place] [address] documented as of this encounter Visit Diagnoses Not on filedocumented in this encounter
--- OUTSIDE RECORDS SUMMARY | 2024-07-22 16:21 | XMS_ITS | Encounter Summary ---
Author Organization [place] [address] Care Team Providers Care Religion Teacher Name Role Phone Unavailable Primary Care Provider Unavailabl e Encounter Details Date Type Department Care Team (Late st Contact Info) Description 04/24/1992 2:33 PM EDT - 04/24/1992 11:59 PM EDT Hospital Encounter [facility] [address] [phone] Social History Tobacco Use Types [...] EST Appointment [facility] [address] [place] [address] Jomar Kim MD [address] [place] [address] documented as of this encounter Visit Diagnoses Not on filedocumented in this encounter
--- OUTSIDE RECORDS SUMMARY | 2024-07-22 16:21 | XMS_ITS | Encounter Summary ---
Author Organization [place] [address] Care Team Providers Care Personal Vehicle Advisor Name Role Phone Unavailable Primary Care Provider Unavailabl e Encounter Details Date Type Department Care Team (Late st Contact Info) Description 11/19/2004 8:55 PM EST - 11/19/2004 11:59 PM EST Hospital Encounter [facility] Yefri Dennis MD Social History Tobacco Use Types Packs/Day [...] 9:00 AM EST [facility]ment [facility] [address] [facility] [place], [place] [phone] Jomar Kim MD [address] [place] [address] documented as of this encounter Visit Diagnoses Not on filedocumented in this encounter
--- OUTSIDE RECORDS SUMMARY | 2024-07-22 16:21 | XMS_ITS | Encounter Summary ---
Author Organization [place] [address] Care Team Providers Care Almond Roaster Name Role Phone Unavailable Primary Care Provider Unavailabl e Encounter Details Date Type Department Care Team (Late st Contact Info) Description 07/31/1990 9:24 AM EST - 07/31/1990 11:59 PM EST Hospital Encounter [facility] Poornima Wu Social History Tobacco Use Types Packs/Day Years [...] 9:00 AM EST Appointment [facility] [address] [place], [place] [phone] Jomar Kim MD [address] [place] [address] documented as of this encounter Visit Diagnoses Not on filedocumented in this encounter
--- OUTSIDE RECORDS SUMMARY | 2024-07-22 16:21 | XMS_ITS | Encounter Summary ---
Author Organization [place] [address] Care Team Providers Care Supervisor Intelligence Analyst Name Role Phone Unavailable Primary Care Provider Unavailabl e Encounter Details Date Type Department Care Team (Late st Contact Info) Description 12/11/1990 11:51 AM EST - 12/11/1990 11:59 PM EST Hospital Encounter [facility] EPIC [...] 9:00 AM EST Appointment [facility] [address] [place], [place] [id number] Jomar Kim MD [address] [place] [address] documented as of this encounter Visit Diagnoses Not on filedocumented in this encounter
[2024-07-22 16:23] LABS: Appearance,Urine CLEAR (Clear); Bilirubin,Urine Negative (Negative); Blood, Urine TRACE-I (Negative); Color,Urine YELLOW (Yellow); Glucose,Urine (UA) Negative (Negative); Ketones,Urine Negative (Negative); Leukocyte Esterase,Urine Negative (Negative); Nitrate,Urine Negative (Negative); PH,Urine 7.5 (5.0-8.5); Protein,Urine Negative (Negative); Specific Gravity, Urine 1.015 (1.005-1.030); Urobilinogen,Urine 0.2 EU/dl (0.2)
[2024-07-22 17:04] LABS: Squamous Epithelial Cell,Urine 20-50 #/hpf (0-5)
[2024-07-22 17:05] LABS: Bacteria,Urine 4+ /lpf; Triple Phosphate Crystal,Urine Trace /lpf
== END 2024-07-22 23:59 | disposition home or self-care (01) ==
LOC: LAB 15:53
PROVIDERS: PCP Nurse Practitioner Family; Visit Provider Nurse Practitioner Family
DX: N39.0 Urinary tract infection, site not specified (principal)
CPT/HCPCS: 36415; 81001; 87086

== ENCOUNTER 2025-01-31 12:17 | Emergency (ER) | payer MEDICARE, SELFPAY ==
[2025-01-31 12:27] VITALS: BP 135/69; PULSE 82; RESP 18; TEMP 36.6; O2SAT 96; BMI 67.4
[2025-01-31 12:30] VITALS: BP 135/69; PULSE 77; O2SAT 96
--- NOTE | 2025-01-31 12:59 | CT_ITS ---
PROCEDURE INFORMATION: Exam: CT Thoracic Spine Without Contrast Exam date and time: 01/31/2025 1:33 PM Age: 69 years old Clinical indication: Pain in thoracic spine; Additional info: Chair vs back injury, pain TECHNIQUE: Imaging protocol: Computed tomography of the thoracic spine without contrast. Radiation optimization: All CT scans at this facility use at least one of these dose optimization techniques: automated exposure control; mA and/or kV adjustment per patient size (includes targeted exams where dose is matched to clinical indication); or iterative reconstruction. COMPARISON: CT CERVICAL SPINE WO CON 01/31/2025 1:31 PM FINDINGS: Bones/joints: No acute fracture or malalignment. No worrisome lytic or blastic osseous lesion. Moderate multilevel disc space narrowing, marginal osteophyte formation, uncovertebral and bilateral facet hypertrophy. Soft tissues: Unremarkable. IMPRESSION: 1. No acute fracture or malalignment. 2. Moderate multilevel degenerative change.
--- NOTE | 2025-01-31 12:59 | XR_ITS ---
PROCEDURE INFORMATION: Exam: XR Right Femur Exam date and time: 01/31/2025 1:41 PM Age: 69 years old Clinical indication: Pain; Thigh; Right TECHNIQUE: Imaging protocol: Radiologic exam of the right femur. Views: 2 views. COMPARISON: CT BONY PELVIS 01/31/2025 1:38 PM FINDINGS: Bones/joints: No acute fracture or malalignment.No worrisome lytic or blastic osseous lesion. No cortical erosion or periosteal reaction. Severe right hip osteoarthritis. Moderate to severe right knee osteoarthritis. Soft tissues: No soft tissue abnormality. IMPRESSION: No acute fracture or malalignment. Severe right hip osteoarthritis. Moderate to severe right knee osteoarthritis.
--- NOTE | 2025-01-31 12:59 | CT_ITS ---
PROCEDURE INFORMATION: Exam: CT Cervical Spine Without Contrast Exam date and time: 01/31/2025 1:31 PM Age: 69 years old Clinical indication: Neck pain; Additional info: Chair vs back injury, pain TECHNIQUE: Imaging protocol: Computed tomography of the cervical spine without contrast. Radiation optimization: All CT scans at this facility use at least one of these dose optimization techniques: automated exposure control; mA and/or kV adjustment per patient size (includes targeted exams where dose is matched to clinical indication); or iterative reconstruction. COMPARISON: CR XR CHEST PORTABLE 06/20/2023 8:41 AM FINDINGS: Bones: No acute fracture or malalignment. Moderate to severe multilevel degenerative change, most prominently spanning C4-7. Lungs: Lung apices are normal. Thyroid: Left thyroid nodule measuring 1.8 x 1.5 cm. Nonspecific. Unless recently performed, recommend outpatient thyroid ultrasound to exclude malignancy. Soft tissues: Unremarkable. IMPRESSION: 1. No acute fracture or malalignment. 2. Left thyroid nodule measuring 1.8 x 1.5 cm. Nonspecific. Unless recently performed, recommend outpatient thyroid ultrasound to exclude malignancy. COMMENTS: Consistent with the [employer]'s Incidental Findings Committee white paper (J Am Ag Radiol 2015): In patients aged 35 years and older with an incidental thyroid nodule equal to or greater than 1.[address], MRI or extrathyroidal US, further evaluation with dedicated thyroid US is recommended for patients with normal life expectancy and without comorbidities. For smaller nodules without suspicious features, no further evaluation or follow up is recommended.
--- NOTE | 2025-01-31 12:59 | CT_ITS ---
PROCEDURE INFORMATION: Exam: CT Lumbar Spine Without Contrast Exam date and time: 01/31/2025 1:36 PM Age: 69 years old Clinical indication: Low back pain; Additional info: Chair vs back injury, pain TECHNIQUE: Imaging protocol: Computed tomography of the lumbar spine without contrast. Radiation optimization: All CT scans at this facility use at least one of these dose optimization techniques: automated exposure control; mA and/or kV adjustment per patient size (includes targeted exams where dose is matched to clinical indication); or iterative reconstruction. COMPARISON: CT LUMBAR SPINE WO CON 06/20/2023 2:05 PM FINDINGS: Bones/joints: No acute fracture or malalignment. Mild curvature. No worrisome lytic or blastic osseous lesion. Moderate multilevel disc space narrowing, osteophyte formation, bilateral facet hypertrophy. Soft tissues: No soft tissue abnormality. IMPRESSION: 1. No acute fracture or malaligment. 2. Moderate multilevel degenerative change.
--- NOTE | 2025-01-31 12:59 | CT_ITS ---
PROCEDURE INFORMATION: Exam: CT Pelvis Without Contrast, Skeleton Exam date and time: 01/31/2025 1:38 PM Age: 69 years old Clinical indication: Pelvic pain; Additional info: Chair vs back injury, pain TECHNIQUE: Imaging protocol: Computed tomography of the pelvis without contrast. Exam focused on the skeleton. Radiation optimization: All CT scans at this facility use at least one of these dose optimization techniques: automated exposure control; mA and/or kV adjustment per patient size (includes targeted exams where dose is matched to clinical indication); or iterative reconstruction. COMPARISON: CR XR HIP RT 2-3V W/PELVIS 06/20/2023 8:41 AM FINDINGS: Reproductive: Status post hysterectomy. Bones/joints: No acute fracture or malalignment. Severe bilateral hip osteoarthritis with [id number]-[id number] articulation, subchondral sclerosis and cystic change. Soft tissues: Unremarkable. IMPRESSION: No acute fracture or malalignment. Severe bilateral hip osteoarthritis with [id number] articulation, subchondral sclerosis and cystic change.
[2025-01-31 13:01] VITALS: BP 135/82; PULSE 73; O2SAT 99
--- NOTE | 2025-01-31 13:03 | HMH.EDGENADL ---
Discharge Plan Disposition Patient Disposition: Home, Self-Care Prescriptions Prescriptions: New levofloxacin 750 mg tablet 750 mg PO DAILY 5 Days Qty: 5 0RF No Action furosemide 40 mg tablet 40 mg PO DAILY Patient Comments: TAKE 1 TABLET BY MOUTH ONCE DAILY, MAY TAKE AN EXTRA IF NEEDED metformin 500 mg tablet 500 mg PO DAILY Patient Comments: TAKE 1 TABLET BY MOUTH ONCE DAILY WITH BREAKFAST atorvastatin 20 mg tablet 20 mg PO DAILY Patient Comments: TAKE 1 TABLET BY MOUTH ONCE DAILY trospium 20 mg tablet 20 mg PO BID Patient Comments: TAKE 1 TABLET BY MOUTH TWICE DAILY docusate sodium 100 mg Capsule 100 mg PO DAILY Qty: 30 0RF Jardiance 10 mg Tablet 10 mg PO DAILY Qty: 30 0RF folic acid 1 mg Tablet 1 mg PO DAILY Qty: 30 0RF spironolactone 25 mg Tablet 25 mg PO DAILY Qty: 30 0RF pantoprazole 40 mg Tablet,Delayed Release (Dr/Ec) 40 mg PO DAILY Qty: 30 0RF lisinopril 10 mg Tablet 10 mg PO DAILY Qty: 30 0RF Referrals Follow up/Referrals: Nathalie Ochoa DO [Staff Physician] - See instructions Abel Pretty MD [Primary Care Provider] - See instructions Activity Restrictions/Add. Instructions Additional Instructions/Restrictions: At this time it was felt you are safe to be discharged home. If new or worsening symptoms please do not hesitate to return the emergency department. With respect to the cyst on your vagina if it is causing significant symptoms please call and schedule appointment with Dr. Ochoa as soon as you are able. Follow-up with your family doctor to keep an eye on the nodule that we found on your thyroid, it is likely benign but we do need to keep an eye on it and sometimes need to get an ultrasound. Please take your antibiotics as prescribed. Clinical Impressions Clinical Impression: Back pain, Thyroid nodule, Acute UTI, Bartholin cyst Print Language Print Language: Greek Discharge ED Provider: Bashir Fuller General Adult HPI General Chief complaint: PAIN Stated complaint: Pain all over Time Seen by Provider: 01/31/25 12:26 Mode of Arrival: EMS Source of Information: Patient and EMS Description of Symptoms (Recalled from ER Triage Doc. by RN): EMS reports they were called out to pts home for pain all over . Pt reports the lift chair she sits in broke on friday and the foot board came up and hit her. Pt reports pain in her lower abdoman, right groin, both heels. Pt reports it hurts to urinate, having muscle spasms in both legs. Pt reports zaire mosss most of her medical care at [facility] in [place]. History of Present Illness HPI narrative: Patient is a 69-year-old female who presents to the emergency department for evaluation of multiple complaints. Patient's lift chair broke on Friday causing boards in the back of the chair to strike her in the entire back and right hip area. No falls. She has diffuse midline pain in her back and pain in her right hip. She also complains of dysuria. She has chronic swelling of his lower lower extremities which she states is worse and would like it looked into. No other acute complaints at this time. Please note that above description of symptoms, in this electronic medical record under categorization of recalled from ER triage doctor by RN are reflective of an initial nursing assessment, however, is not reflective of my full history and physical exam that was personally taken and clarified. Consequentially, this preceding description of symptoms, which may include the patient's categorized chief complaint in the EMR, do not reflect my personal clinical impression, and the ultimate description of history of present illness and patient stated complaints should be deferred to this section of the note. Unless stated otherwise or congruent with this section of the note, additional signs, symptoms, or incongruence should be interpreted as inaccurate with my clinical impression. Related Data Home Medications ?Medication ?Instructions ?Recorded ?Confirmed atorvastatin 20 mg tablet 20 mg PO DAILY Cholesterol 06/20/23 06/20/23 furosemide 40 mg tablet 40 mg PO DAILY Fluid 06/20/23 06/20/23 metformin 500 mg tablet 500 mg PO DAILY Diabetes 06/20/23 06/20/23 trospium 20 mg tablet 20 mg PO BID Overactive Bladder 06/20/23 06/20/23 Previous Rx's ?Medication ?Instructions ?Recorded docusate sodium 100 mg capsule 100 mg PO DAILY #30 caps 06/25/23 empagliflozin 10 mg tablet 10 mg PO DAILY #30 tabs 06/25/23 (Jardiance) folic acid 1 mg tablet 1 mg PO DAILY #30 tabs 06/25/23 lisinopril 10 mg tablet 10 mg PO DAILY #30 tabs 06/25/23 pantoprazole 40 mg tablet,delayed 40 mg PO DAILY #30 tabs 06/25/23 release spironolactone 25 mg tablet 25 mg PO DAILY #30 tabs 06/25/23 levofloxacin 750 mg tablet 750 mg PO DAILY UTI 5 days #5 tabs 01/31/25 Allergies Allergy/AdvReac Type Severity Reaction Status Date / Time naproxen (From NAPROSYN) Allergy Intermediate I-RASH Verified 01/31/25 12:49 cefaclor (From CECLOR) Allergy Unknown Rash Verified 01/31/25 12:49 ampicillin Allergy Rash Verified 01/31/25 12:49 egg Allergy Rash Verified 01/31/25 12:49 [facility] Disclaimer: The information contained in this section may have been updated after the patient was seen, as this information can be updated by other users. Medical History (Updated 01/31/25 @ 15:06 by Bashir Fuller MD) (HFpEF) heart failure with preserved ejection fraction Diabetes mellitus, type 2 Cervical cancer History of gastroesophageal reflux (GERD) Hyperlipidemia Hypertension Degenerative joint disease of both hips Surgical History (Updated 06/20/23 @ 12:52 by Brynn Tapia RN) History of cholecystectomy Family History (Updated 06/20/23 @ 12:52 by Brynn Tapia RN) Other No significant family history Social History (Updated 06/20/23 @ 12:53 by Brynn Tapia RN) Smoking Status: Never smoker alcohol intake: never current occupational status: other Travel in the last 8 weeks?: None Have you lived/traveled outside US in past 30 days?: No Contact w/someone who lives/traveled outside US past 30 days?: No Exposure to someone with infectious disease in past 14 days?: No Do you have a fever (greater than 100.4 F or 38 C)?: No Have you tested positive for COVID-19?: No Exposed to someone with COVID-19 in past 14 days?: No Do you have a sore throat?: No Do you have a cough?: No Do you have any weakness?: No Do you have any diarrhea?: No Are you experiencing any unusual bleeding?: No Do you have any muscle aches/pain?: No Do you have any abdominal pain?: No Are you experiencing loss of taste or smell?: No Other Medical History Have you received the Flu Vaccine for this season: No Have you received the Pneumonia Vaccine: No ROS Obtained: Yes Systems reviewed as appropriate & no additional complaints except as documented Physical Exam General General appearance: alert and in no apparent distress Head Head exam: atraumatic and normocephalic Eye Eye exam: Present PERRL and EOMI ENT ENT exam: Present mucous membranes moist Neck Neck exam: Present normal inspection Chest Chest inspection: Present normal inspection and symmetric chest wall rise Respiratory Respiratory exam: Present normal lung sounds bilaterally; Absent respiratory distress Cardiovascular Cardiovascular exam: Present regular rate and normal rhythm Abdominal Exam Abdominal exam: Present soft; Absent tenderness Bimanual exam: Present other (No obvious external lesions, [employer] present, there is bulging at the introitus that is difficult to evaluate due to habitus that has mucosal surface on it at the inferior aspect. No significant erythema, no purulence.) Extremities Exam Extremities exam: Present other (Palpable dorsal pedal pulses bilaterally normal capillary refill. 1+ pitting edema of the bilateral lower extremities distal to the knee.) Back Exam Back exam: Present other (Diffuse tenderness along the C/T/L-spine. Tenderness over the right sacroiliac joint.) Neurological Exam Neurological exam: Present alert Psychiatric Psychiatric exam: Present normal affect Skin Skin exam: Present warm and dry Medical Decision Making Medical Records Screening: Per USPSTF and CDC recommendations, given the prevalence of disease in our region, it is our hospital?s policy to screen for HIV and viral Hepatitis for all patients aged 18 and over and those with ongoing risk factors. Jorge Inquiry Pt receiving controlled substance: No Vital Signs: 01/31/25 12:27 01/31/25 12:30 01/31/25 13:01 Temperature 97.9 F Temperature Source Oral Pulse Rate 77 73 Pulse Rate [Right Brachial] 82 Respiratory Rate 18 Blood Pressure 135/69 135/82 Blood Pressure [Right Arm] 135/69 Blood Pressure Mean 86 93 Blood Pressure Mean [Right Arm] 91 02 Sat by Pulse Oximetry 96 96 99 Oxygen Delivery Method Room Air 01/31/25 15:00 Temperature Temperature Source Pulse Rate 71 Pulse Rate [Right Brachial] Respiratory Rate Blood Pressure 149/79 H Blood Pressure [Right Arm] Blood Pressure Mean Blood Pressure Mean [Right Arm] 02 Sat by Pulse Oximetry 98 Oxygen Delivery Method Lab Data Lab Results 01/31/25 13:10: WBC 10.8, RBC 4.41, Hgb 11.9 L, Hct 39.2, MCV 88.9, MCH 27.0, MCHC 30.4 L, RDW 14.6, Plt Count 282, MPV 9.6, Neut % (Auto) 79.1, Lymph % (Auto) 9.4 L, Schleicher % (Auto) 8.4, Eos % (Auto) 1.7, Baso % (Auto) 0.6, Neut # (Auto) 8.6 H, Lymph # (Auto) 1.0, Schleicher # (Auto) 0.9, Eos # (Auto) 0.2, Baso # (Auto) 0.1, Sodium 140, Potassium 4.5, Chloride 106, Carbon Dioxide 30, Anion Gap 8.5, BUN 13, Creatinine 0.70, Estimated Creat Clear 43, Estimated GFR 83, Est GFR ( Amer) 101, Glucose 107 H, Calcium 10.0, Total Bilirubin 0.4, AST 33, ALT 26, Alkaline Phosphatase 83, NT-Pro-B Natriuret Pep 208 H, Total Protein 7.4, Albumin 4.0, Globulin 3.4 H, Albumin/Globulin Ratio 1.2, HCV Ab DANA w/Rflx PCR Qn Negative, HIV Ag/Ab Combo Qual Negative 01/31/25 14:12: Urine Color Yellow, Urine Appearance Clear, Urine pH 7.0, Ur Specific [place] 1.015, Urine Protein Negative, Urine Glucose (UA) Negative, Urine Ketones Negative, Urine Blood 1+ A, Urine Nitrate Positive A, Urine Bilirubin Negative, Urine Urobilinogen 0.2, Ur Leukocyte Esterase Negative, Urine RBC 5-10, Urine WBC 10-20, Ur Squamous Epith Cells None, Urine Bacteria 4+ 01/31/25 13:10 01/31/25 13:10 Orders (Tests/Meds): ED MEDICATIONS Generic Name Dose Route Start Last Admin Trade Name Freq PRN Reason Stop Dose Admin Levofloxacin 750 mg 01/31/25 15:05 Levofloxacin 750 Mg Tablet PO 01/31/25 15:06 ONCE ONE Discontinued Medications Generic Name Dose Route Start Last Admin Trade Name Freq PRN Reason Stop Dose Admin Acetaminophen 1,000 mg 01/31/25 13:03 01/31/25 14:45 Acetaminophen 500mg Tab PO 01/31/25 13:04 1,000 mg ONCE ONE Administration Methocarbamol 1,000 mg 01/31/25 13:03 01/31/25 14:44 Methocarbamol 500mg Tablet PO 01/31/25 13:04 1,000 mg ONCE ONE Administration ORDERS Category Date Time Status CT bony pelvis Stat Cat Scan 01/31/25 12:[address] cervical spine wo con Stat Cat Scan 01/31/25 12:[address] lumbar spine wo con Stat Cat Scan 01/31/25 12:[address] thoracic spine wo con Stat Cat Scan 01/31/25 12:59 Completed Femur XR right 2 views [XR femur RT 2V] Stat Exams 01/31/25 12:59 Completed BNP [NT Pro Brain Natriuretic Pep.] Stat Lab 01/31/25 13:10 Completed CBC w/Auto Diff [Complete Blood Count Auto Diff] Stat Lab 01/31/25 13:10 Completed CMP [Comprehensive Metabolic Panel] Stat Lab 01/31/25 13:10 Completed HIV Combo Routine Lab 01/31/25 13:10 Completed Hepatitis C Ab Qual. W/ RFX Routine Lab 01/31/25 13:10 Completed UA [Urinalysis and Microscopic] Stat Lab 01/31/25 14:12 Completed Urine Culture Stat Micro 01/31/25 14:12 Received Medical Decision Narrative: In summary patient is a 69-year-old female past medical history described above who presents emergency department for evaluation of multiple complaints. With the SPECT her back and hip pain differential includes musculoskeletal pain, fracture, among others. Workup will be conducted with plain film of the right femur and CT of the C/T/L-spine as well as the bony pelvis. With respect to her frequent urination differential include urinary tract infection, among others workup we conducted with hematologic labs, urinalysis. Initial interventions include Tylenol, methocarbamol. Initial workup reviewed by me, no significant leukocytosis no transfusable anemia, no ANGE or critical electrolyte abnormality, minimally elevated BNP which can be falsely low given body habitus. Patient has nitrate positive urinary tract infection which will be treated with antibiotics. Trauma survey only remarkable for incidental thyroid nodule. There is severe right hip osteoarthritis and right knee osteoarthritis. No acute traumatic pathology identified. Given this patient is at baseline functionality and is appropriate for outpatient management at this time will be discharged with a course of antibiotics and follow-up with family doctor. With respect to her Bartholin gland cyst I discussed the case with gynecology on-call and given that I do not think it is infected most of these are filled with mucus and acute intervention is not warranted as the risks outweigh the benefits. Patient will given first dose of antibiotics here and given she is allergic to Ceclor and penicillins will be given levofloxacin on outpatient basis and will continue to follow-up with PCP. Critical Care Critical Care Time Critical Care Time: No
[2025-01-31 13:25] LABS: Basophils # 0.1 K/mm3 (0-0.2); Basophils % 0.6 % (0.1-2.0); Eosinophils # 0.2 Kmm3 (0.0-0.4); Eosinophils % 1.7 % (0.1-12.0); Hematocrit 39.2 % (37.0-47.0); Hemoglobin 11.9 g/dL (12.2-16.2); Immature Granulocytes # 0.09 10^3uL; Immature Granulocytes % 0.8 %; Lymphocytes % 9.4 % (10-50); Mean Corpuscular HGB Conc 30.4 g/dL (31.8-35.4); Mean Corpuscular Volume 88.9 fl (81-99); Mean Platelet Volume 9.6 fl (7.4-10.4); Monocytes # 0.9 K/mm3 (0.1-1.0); Monocytes % 8.4 % (1.7-9.3); Neutrophils # 8.6 K/mm3 (1.8-7.8); Neutrophils % 79.1 % (37.0-80.0); Nucleated Red Blood Cells # 0 10^3/uL; Nucleated Red Blood Cells % 0 %; Platelet Count 282 K/mm3 (142-424); Red Blood Count 4.41 M/mm3 (4.20-5.40); Red Cell Distribution Width 14.6 % (11.5-17.5); Red Cell Distribution Width-SD 47.1 fL; White Blood Count 10.8 K/mm3 (4.8-10.8)
[2025-01-31 13:34] LABS: Chloride 106 mmol/L (98-107); Potassium 4.5 mmoL/L (3.5-5.1); Sodium 140 mmol/L (136-145)
[2025-01-31 13:36] LABS: Blood Urea Nitrogen 13 mg/dl (7-17); Creatinine Clearance Estimated 43 mL/min (50-200); Estimated Glomerular Filt Rate 83 ml/min (>60); GFR (African American) 101 ML/MIN (>60)
[2025-01-31 13:37] LABS: Alanine Aminotransferase 26 U/L (12-78); Albumin/Globulin Ratio 1.2 (1.1-1.8); Alkaline Phosphatase 83 U/L (38-126); Anion Gap 8.5 mEq/L (5-15); Aspartate Amino Transferase 33 U/L (14-36); Bilirubin,Total 0.4 mg/dl (0.2-1.3); Carbon Dioxide 30 mmol/L (22.0-30.0); Globulin 3.4 g/dL (1.3-3.2); Glucose 107 mg/dl (74-100); Total Protein,Serum 7.4 g/dl (6.3-8.2)
[2025-01-31 13:46] LABS: NT Pro Brain Natriuretic Pep. 208 pg/mL (0-125)
--- NOTE | 2025-01-31 14:14 | PC.NURSE ---
Paged OB for Dr Fuller to consult about this pt.
[2025-01-31 14:17] LABS: Microscopic, Urine URINE MICROSCOPIC (MICROSCOPIC)
[2025-01-31 14:18] LABS: HIV Combo NEGATIVE (Negative)
[2025-01-31 14:19] LABS: Appearance,Urine CLEAR (Clear); Bilirubin,Urine Negative (Negative); Blood, Urine 1+ (Negative); Color,Urine YELLOW (Yellow); Glucose,Urine (UA) Negative (Negative); Ketones,Urine Negative (Negative); Leukocyte Esterase,Urine Negative (Negative); Nitrate,Urine POSITIVE (Negative); Protein,Urine Negative (Negative); Specific Gravity, Urine 1.015 (1.005-1.030); Urobilinogen,Urine 0.2 EU/dl (0.2)
[2025-01-31 14:26] LABS: Hepatitis C Ab Qual. W/ RFX NEGATIVE (Negative)
[2025-01-31 14:31] LABS: Bacteria,Urine 4+ /lpf
[2025-01-31] MEDS: METHOCARBAMOL 500MG TABLET 1000 MG PO (14:44)
[2025-01-31] MEDS: ACETAMINOPHEN 500MG TAB 1000 MG PO (14:45)
[2025-01-31 15:00] VITALS: BP 149/79; PULSE 71; O2SAT 98
[2025-01-31] MEDS: levoFLOXacin 750 MG TABLET PO (15:14)
[2025-01-31 15:25] VITALS: BP 149/79; PULSE 75; RESP 18; TEMP 37.1; O2SAT 98
[2025-01-31 15:30] VITALS: BP 149/76; PULSE 73; O2SAT 97
--- NOTE | 2025-02-02 09:20 | PC.NURSE ---
urine culture discussed with dr alvarenga, no new orders
== END 2025-01-31 15:43 | disposition home or self-care (01) ==
PROVIDERS: Emergency Provider Emergency Medicine; PCP Family Medicine
DX: N39.0 Urinary tract infection, site not specified (principal); M54.9 Dorsalgia, unspecified; E04.1 Nontoxic single thyroid nodule; N75.0 Cyst of Bartholin's gland
CPT/HCPCS: 72125; 72128; 72131; 72192; 73552; 80053; 81001; 83880; 85025; 86803; 87086; 87088; 87186; 87389; 99285; J2004

== ENCOUNTER 2025-02-15 15:09 | Emergency (ER) | payer MEDICARE, SELFPAY ==
[2025-02-15 15:13] VITALS: BP 129/76; PULSE 76; RESP 15; TEMP 36.9; O2SAT 97; BMI 64.0
--- NOTE | 2025-02-15 15:27 | XR_ITS ---
FINAL REPORT CLINICAL HISTORY: Right arm pain COMPARISON: None FINDINGS: Two views of the right humerus were obtained. There is no acute fracture or dislocation. The joint spaces are well preserved. There is no acute soft tissue abnormality. IMPRESSION: No acute abnormality identified. Reviewed, Interpreted and Dictated by Dedrick Pedraza MD Transcribed by [facility] [place] [facility]
--- NOTE | 2025-02-15 15:27 | XR_ITS ---
FINAL REPORT CLINICAL HISTORY: Right shoulder pain COMPARISON: None FINDINGS: RIGHT SHOULDER 4 views demonstrate no acute fracture or dislocation. The visualized joint spaces are normally aligned. The soft tissues are unremarkable. IMPRESSION: No acute process. Reviewed, Interpreted and Dictated by Dedrick Pedraza MD Transcribed by [facility] [place] [facility]
--- OUTSIDE RECORDS SUMMARY | 2025-02-15 15:27 | XMS_ITS | Clinical Summary ---
Author Organization [facility] Address [facility] [place] [address] Phone Care Team Providers Care Data Scientist Name Role Phone Gera Rowan MD [facility] [phone] Conditions or Problems No information available. Medications No information available. Medications Administered No information available. Allergies, Adverse Reactions, Alerts No information available. Results No information available. Plan of Care No information available. Procedures No information available. Vital Signs No information available. Immunizations No information available. Advance Directives No information available.
--- OUTSIDE RECORDS SUMMARY | 2025-02-15 15:27 | XMS_ITS | Clinical Summary ---
Author Organization [facility] are Address [address] [place] [address] Phone Care Team Providers Care Press Setup Operator Name Role Phone Jarocho Lemos MD Primary Care Physician [ ] Conditions or Problems No information available. Medications No information available. Medications Administered No information available. Allergies, Adverse Reactions, Alerts No information available. Results No information available. Plan of Care No information available. Procedures No information available. Vital Signs No information available. Immunizations No information available. Advance Directives No information available.
[2025-02-15 15:28] LABS: Basophils # 0.1 K/mm3 (0-0.2); Basophils % 0.6 % (0.1-2.0); Eosinophils # 0.2 Kmm3 (0.0-0.4); Eosinophils % 1.7 % (0.1-12.0); Hematocrit 39.7 % (37.0-47.0); Hemoglobin 12.2 g/dL (12.2-16.2); Immature Granulocytes # 0.04 10^3uL; Immature Granulocytes % 0.4 %; Lymphocytes # 1.4 K/mm3 (0.7-4.5); Lymphocytes % 13.2 % (10-50); Mean Corpuscular HGB Conc 30.7 g/dL (31.8-35.4); Mean Corpuscular Hemoglobin 27.3 pg (27.0-31.2); Mean Corpuscular Volume 88.8 fl (81-99); Mean Platelet Volume 9.7 fl (7.4-10.4); Monocytes % 9.6 % (1.7-9.3); Neutrophils # 7.7 K/mm3 (1.8-7.8); Neutrophils % 74.5 % (37.0-80.0); Nucleated Red Blood Cells # 0 10^3/uL; Nucleated Red Blood Cells % 0 %; Platelet Count 261 K/mm3 (142-424); Red Blood Count 4.47 M/mm3 (4.20-5.40); Red Cell Distribution Width 15.2 % (11.5-17.5); Red Cell Distribution Width-SD 50.2 fL; White Blood Count 10.3 K/mm3 (4.8-10.8)
--- OUTSIDE RECORDS SUMMARY | 2025-02-15 15:28 | XMS_ITS | Data Portability ---
Author Organization [place] - [facility] and [facility] Steele Address [address] [place] [address] Care Team Providers Care Needle Control Cheniller Name Role Phone SEFERINO LAWRENCE Primary Care Provider Assessment No assessment recorded. Plan of Treatment Reminders Order Date Submit Date Provider Last Modified By Organization Details Last Modified Time Details Appointments None recorded. Lab HbA1c (hemoglobi n A1c), blood 2024 [facility] (Laboratory), [address] [place], [address], 5 13:34:35 CMP, serum or plasma 2024 025 [facility] (Laboratory), [address] [place], [address], 5 14:02:30 pro BNP (pro B-type natriureti c peptide), serum or plasma 2024 025 [facility] (Laboratory), [address] [place], [address], 5 13:39:56 amylase + lipase, serum [email or web address] (Laboratory), [address] [place], [address], 5 07:39:57 CBC w/ auto diff [id number] [facility] (Laboratory), [address] [place], [address], 5 13:21:23 iron + TIBC + ferritin, serum [address] (Laboratory), [address] [place], [address], 5 07:39:57 vitamin B12 + folate, serum or blood [address] (Laboratory), [address] [place], [address], 5 07:39:57 CMP, serum or plasma 2023 [facility] (Laboratory), [address] [place], [address], 4 17:28:53 hemoglobin A1c + average glucose, QN, blood 2023 [email or web address] [facility] (Laboratory), [address] [place], [address], 4 07:59:01 TSH, serum or plasma 2023 [facility] (Laboratory), [address] [place], [address], 4 17:28:49 CBC w/ auto diff 2023 [facility] (Laboratory), [address] [place], [address], 4 16:51:25 iron + TIBC + ferritin, serum 2023 [email or web address] [facility] (Laboratory), [address] [place], [address], 4 20:20:43 vitamin B12 + folate, serum or blood [address] (Laboratory), [address] [place], [address], 4 20:20:15 vitamin D, 25-hydroxy , total, serum [address] (Laboratory), [address] [place], [address], 4 20:19:49 urinalysis , dipstick 2023 024 [facility], [address] [place], [address], 4 15:08:50 microalbum in/creatin ine, mass ratio, urine 2023 [facility], [address] [place], [address], 4 15:08:50 culture, urine 2023 024 [facility] (Laboratory), [address] [place], [address], 4 07:28:20 Referral pain management referral 2024 025 [email or web address] n26 [facility], [address] [place] [address] [address], [place], [address], 5 07:45:33 gastroente rologist referral 2024 025 [email or web address] Og Cisneros MD, [address], [place], [address], 5 11:00:07 porcelain enameling supervisor referral 2024 025 [email or web address] n26 Cherelle Carmen DPM, [address] [place] [address] [address], [place], [address], 5 07:45:32 home health referral [address] [facility], [address], [place], [address], 4 07:20:20 physical therapist referral [address] [facility], [address], [address], 4 07:20:21 home health referral 2023 024 [address], [address], [place], [address], 4 08:48:43 Procedures None recorded. Surgeries None recorded. Imaging home sleep study [address] (Scheduling), [address] [place], [address], 5 07:47:14 CT, head, w/o contrast [address] (Scheduling), [address] [place], [address], 5 08:48:06 Medication Orders Carafate 100 mg/mL oral suspension 2024 025 [facility], [address], [address], 5 12:31:44 furosemide 20 mg tablet 2024 025 [facility], [address] [place], [address], 5 15:54:15 spironolac tone 50 mg tablet 2024 025 [facility], [address] [place], [address], 5 15:54:14 famotidine 20 mg tablet 2024 025 [facility], [address] [place], [address], 5 15:54:18 omeprazole 40 mg capsule,de layed release 2024 025 [facility], [address] [place], [address], 5 15:54:15 baclofen 10 mg tablet 2023 024 [facility], [address] [place], [address], 4 15:50:28 meloxicam 15 mg tablet 2023 025 [facility], [address] [place], [address], 5 15:53:55 omeprazole 40 mg capsule,de layed release 2023 024 [facility], [address] [place], [address], 4 11:39:23 famotidine 20 mg tablet 2023 024 [facility], [address] [place], [address], 4 15:05:52 Patient TargetsNo targets recorded. Patient InstructionsNo instructions recorded. Reason for Referral Home Health Referral for Imp aired mobility Referring Physician: [facility], Encounter Date: 06/29/2024 Home Health Referral for Lef t hemiparesis Referring Physician: [facility], Encounter Date: 08/18/2024 Physical Therapist Referral for Left hemiparesis Referring Physician: Family Jose Manley, Encounter Date: 08/18/2024 Pipeline Gang Supervisor Referral for Bila teral foot joint pain Referring Physician: Family Jose Manley, Encounter Date: 10/11/2024 Pain Management Referral for Chronic pain Referring Physician: Family Jose Manley, Encounter Date: 10/11/2024 Software Systems Analyst Referral for Nausea Referring Physician: Family Jose Manley, Encounter Date: 10/11/2024 Results Created Date Observation Date Name Description Value Unit Range Abnormal Flag Note LastModifiedBy Organization Detail LastModifiedTime 06/29/2006/29/2024 CBC AUTO W DIFF WBC 11.2 10 4.5-11 .5 Not Available [facility] (Lab Registration) [address] [place], [address], 06/29/2024 16:51:25 06/29/2006/29/2024 CBC AUTO W DIFF RBC 4.08 10 4.25-5 .57 low Not Available [facility] (Lab Registration) [address] [place], [address], 06/29/2024 16:51:25 06/29/2006/29/2024 CBC AUTO W DIFF HGB 11.1 g/dL 12.0-1 5.7 low Not Available [facility] (Lab Registration) [address] [place], [address], 06/29/2024 16:51:25 06/29/2006/29/2024 CBC AUTO W DIFF HCT 36.5 % 36.0-4 7.0 Not Available [facility] (Lab Registration) [address] [place], [address], 06/29/2024 16:51:25 06/29/20 24 06/29/2024 CBC AUTO W DIFF MCV 89.5 fL 80-95 Not Available [facility] (Lab Registration) [address] [place], [address], 06/29/2024 16:51:25 06/29/20 24 06/29/2024 CBC AUTO W DIFF MCH 27.2 pg 27.0-3 4.0 Not Available [facility] (Lab Registration) [address] [place], [address], 06/29/2024 16:51:25 06/29/20 24 06/29/2024 CBC AUTO W DIFF MCHC 30.4 g/dL 32.0-3 6.0 low Not Available [facility] (Lab Registration) [address] [place], [address], 06/29/2024 16:51:25 06/29/20 24 06/29/2024 CBC AUTO W DIFF platelet count 295 10 150-45 0 Not Available [facility] (Lab Registration) [address] [place], [address], 06/29/2024 16:51:25 06/29/20 24 06/29/2024 CBC AUTO W DIFF RDW 14.8 % 12.3-1 5.1 Not Available [facility] (Lab Registration) [address] [place], [address], 06/29/2024 16:51:25 06/29/20 24 06/29/2024 CBC AUTO W DIFF MPV 9.9 fL 7.4-10 .4 Not Available [facility] (Lab Registration) [address] [place], [address], 06/29/2024 16:51:25 06/29/20 24 06/29/2024 CBC AUTO W DIFF granulocyte% 75.4 % 40-75 high Not Available [facility] (Lab Registration) [address] [place], [address], 06/29/2024 16:51:25 06/29/20 24 06/29/2024 CBC AUTO W DIFF lymphocyte% 13.2 % 15-57 low Not Available [facility] (Lab Registration) [address] [place], [address], 06/29/2024 16:51:25 06/29/20 24 06/29/2024 CBC AUTO W DIFF monocyte% 9.1 % 4.0-12 .0 Not Available [facility] (Lab Registration) [address] [place], [address], 06/29/2024 16:51:25 06/29/20 24 06/29/2024 CBC AUTO W DIFF eosinophil% 1.9 % 0.0-4. 0 Not Available [facility] (Lab Registration) [address] [place], [address], 06/29/2024 16:51:25 06/29/20 24 06/29/2024 CBC AUTO W DIFF basophil% 0.3 % 0.0-1. 0 Not Available [facility] (Lab Registration) [address] [place], [address], 06/29/2024 16:51:25 06/29/20 24 06/29/2024 CBC AUTO W DIFF immature granulocytes % 0.1 % 0.0-0. 8 Not Available [facility] (Lab Registration) [address] [place], [address], 06/29/2024 16:51:25 06/29/20 24 06/29/2024 CBC AUTO W DIFF granulocyte# 8.42 10 Not Available [facility] (Lab Registration) [address] [place], [address], 06/29/2024 16:51:25 06/29/20 24 06/29/2024 CBC AUTO W DIFF lymphocyte# 1.47 10 Not Available [facility] (Lab Registration) [address] [place], [address], 06/29/2024 16:51:25 06/29/20 24 06/29/2024 CBC AUTO W DIFF monocyte# 1.01 10 Not Available [facility] (Lab Registration) [address] [place], [address], 06/29/2024 16:51:25 06/29/20 24 06/29/2024 CBC AUTO W DIFF eosinophil# 0.21 10 Not Available [facility] (Lab Registration) [address] [place], [address], 06/29/2024 16:51:25 06/29/20 24 06/29/2024 CBC AUTO W DIFF basophil# 0.03 10 Not Available [facility] (Lab Registration) [address] [place], [address], 06/29/2024 16:51:25 06/29/20 24 06/29/2024 CBC AUTO W DIFF immature granulocytes # 0.01 10 Not Available [facility] (Lab Registration) [address] [place], [address], 06/29/2024 16:51:25 06/29/20 24 06/29/2024 CBC AUTO W DIFF manual differential NO Not Available [facility] (Lab Registration) [address] [place], [address], 06/29/2024 16:51:25 06/29/20 24 06/29/2024 CBC AUTO W DIFF note Unles s other dennis noted testi ng perfo rmed at: [facility] [address] [place] [address] [phone] Juan cesar MD CLIA: [id number] Not Available [facility] (Lab Registration) [address] [place], [address], 06/29/2024 16:51:25 06/29/20 24 06/29/2024 HEMOG LOBIN A1C glycosylated hemoglobin A1C 6.0 % 4.5-6. 2 Not Available [facility] (Lab Registration) [address] [place], [address], 06/29/2024 17:00:06 06/29/2006/29/2024 HEMOG LOBIN A1C estimated average glucose 126 mg/dL 82-131 Not Available [facility] (Lab Registration) [address] [place], [address], 06/29/2024 17:00:06 06/29/20 24 06/29/2024 HEMOG LOBIN A1C note Unles s other dennis noted testi ng perfo rmed at: [facility] [address] [place] [address] [phone] Juan cesar MD CLIA: [id number] Not Available [facility] (Lab Registration) [address], [place], [address], 06/29/2024 17:00:06 06/29/20 24 06/29/2024 IRON/ TIBC/ %SAT (IRON STUDI ES) iron 38 ug/dL 35-150 Not Available [facility] (Lab Registration) [address] [place], [address], 06/29/2024 17:00:08 06/29/2006/29/2024 IRON/ TIBC/ %SAT (IRON STUDI ES) total iron bind cap (TIBC) 355 ug/dL 250-45 0 Not Available [facility] (Lab Registration) [address] [place], [address], 06/29/2024 17:00:08 06/29/2006/29/2024 IRON/ TIBC/ %SAT (IRON STUDI ES) % saturation 11 % 15-55 low Not Available [facility] (Lab Registration) [address] [place], [address], 06/29/2024 17:00:08 06/29/20 24 06/29/2024 IRON/ TIBC/ %SAT (IRON STUDI ES) note Unles s other dennis noted testi ng perfo rmed at: [facility] [address] [place] [address] [phone] Juan cesar MD CLIA: [id number] Not Available [facility] (Lab Registration) [address], [place], [address], 06/29/2024 17:00:08 06/29/2006/29/2024 THYRO ID STIMU LATIN G HORMO NE thyroid stimulating hormone 1.17 mIU/m L 0.34-4 .80 Not Available [facility] (Lab Registration) [address], [place], [address], 06/29/2024 17:28:49 06/29/2006/29/2024 THYRO ID STIMU LATIN G HORMO NE note Unles s other dennis noted testi ng perfo rmed at: [facility] [address] [place] [address] [phone] Juan cesar MD CLIA: [id number] Not Available [facility] (Lab Registration) [address], [place], [address], 06/29/2024 17:28:49 06/29/2006/29/2024 VITAM IN D TOTAL (D2+D 3) vitamin D25 (D2+D3) 27.9 NG/mL 30-100 low Not Available [facility] (Lab Registration) [address] [place], [address], 06/29/2024 17:28:51 06/29/2006/29/2024 VITAM IN D TOTAL (D2+D 3) note Unles s other dennis noted testi ng perfo rmed at: [facility] [address] [place] [address] [phone] Juan cesar MD CLIA: [id number] Not Available [facility] (Lab Registration) [address] [place], [address], 06/29/2024 17:28:51 06/29/2006/29/2024 VITAM IN B12 vitamin B12 929 pg/mL 193-98 6 Not Available [facility] (Lab Registration) [address], [place], [address], 06/29/2024 17:28:52 06/29/2006/29/2024 VITAM IN B12 folate (folic acid), serum 9.6 NG/mL 8.6-58 .9 Not Available [facility] (Lab Registration) [address], [place], [address], 06/29/2024 17:28:52 06/29/2006/29/2024 VITAM IN B12 note Unles s other dennis noted testi ng perfo rmed at: [facility] [address] [place] [address] [phone] Juan cesar MD CLIA: [id number] Not Available [facility] (Lab Registration) [address], [place], [address], 06/29/2024 17:28:52 06/29/2006/29/2024 COMP METAB OLIC PANEL sodium 142 mmol/ L 136-14 5 Not Available [facility] (Lab Registration) [address] [place], [address], 06/29/2024 17:28:53 06/29/2006/29/2024 COMP METAB OLIC PANEL potassium 4.5 mmol/ L 3.5-5. 1 Not Available [facility] (Lab Registration) [address] [place], [address], 06/29/2024 17:28:53 06/29/2006/29/2024 COMP METAB OLIC PANEL chloride 105 mmol/ L 98-107 Not Available [facility] (Lab Registration) [address] [place], [address], 06/29/2024 17:28:53 06/29/2006/29/2024 COMP METAB OLIC PANEL carbon dioxide 28 mmol/ L 21-32 Not Available [facility] (Lab Registration) [address], [place], [address], 06/29/2024 17:28:53 06/29/2006/29/2024 COMP METAB OLIC PANEL anion gap 9.0 Not Available [facility] (Lab Registration) [address], [place], [address], 06/29/2024 17:28:53 06/29/2006/29/2024 COMP METAB OLIC PANEL glucose 106 mg/dL 70-110 Not Available [facility] (Lab Registration) [address], [place], [address], 06/29/2024 17:28:53 06/29/2006/29/2024 COMP METAB OLIC PANEL blood urea nitrogen 19 mg/dL 7-18 high Not Available [facility] (Lab Registration) [address], [place], [address], 06/29/2024 17:28:53 06/29/2006/29/2024 COMP METAB OLIC PANEL creatinine 0.9 mg/dL 0.6-1. 0 Not Available [facility] (Lab Registration) [address] [place], [address], 06/29/2024 17:28:53 06/29/2006/29/2024 COMP METAB OLIC PANEL BUN/creatini ne ratio 21.1 9-21 high Not Available [facility] (Lab Registration) [address] [place], [address], 06/29/2024 17:28:53 06/29/2006/29/2024 COMP METAB OLIC PANEL [...] guerrero ing kiney funct ion. Not Available [facility] (Lab Registration) [address], [place], [address], 06/29/2024 17:28:53 06/29/2006/29/2024 COMP METAB OLIC PANEL total protein 7.7 g/dL 6.4-8. 2 Not Available [facility] (Lab Registration) [address] [place], [address], 06/29/2024 17:28:53 06/29/2006/29/2024 COMP METAB OLIC PANEL albumin 3.3 g/dL 3.4-5. 0 low Not Available [facility] (Lab Registration) [address] [place], [address], 06/29/2024 17:28:53 06/29/2006/29/2024 COMP METAB OLIC PANEL calcium 10.2 mg/dL 8.5-10 .1 high Not Available [facility] (Lab Registration) [address] [place], [address], 06/29/2024 17:28:53 06/29/2006/29/2024 COMP METAB OLIC PANEL corrected calcium 10.8 mg/dL 8.5-10 .1 high Not Available [facility] (Lab Registration) [address] [place], [address], 06/29/2024 17:28:53 06/29/2006/29/2024 COMP METAB OLIC PANEL bilirubin total 0.2 mg/dL 0.4-1. 5 low Not Available [facility] (Lab Registration) [address] [place], [address], 06/29/2024 17:28:53 06/29/20 24 06/29/2024 COMP METAB OLIC PANEL AST (SGOT) 14 U/L 15-37 low Not Available [facility] (Lab Registration) [address] [place], [address], 06/29/2024 17:28:53 06/29/20 24 06/29/2024 COMP METAB OLIC PANEL ALT (SGPT) 14 U/L 12-78 Not Available [facility] (Lab Registration) [address] [place], [address], 06/29/2024 17:28:53 06/29/20 24 06/29/2024 COMP METAB OLIC PANEL alk phosphatase 94 U/L 53-141 Not Available [facility] (Lab Registration) [address] [place], [address], 06/29/2024 17:28:53 06/29/2006/29/2024 COMP METAB OLIC PANEL note Unles s other dennis noted testi ng perfo rmed at: [facility] [address] [place], [place] [address] [phone] Juan cesar MD CLIA: [id number] Not Available [facility] (Lab Registration) [address] [place], [address], 06/29/2024 17:28:53 06/29/20 24 06/29/2024 MIGUEL TIN ferritin 226 NG/mL 8-388 Not Available [facility] (Lab Registration) [address] [place], [address], 06/29/2024 17:28:55 06/29/2006/29/2024 MIGUEL TIN note Unles s other dennis noted testi ng perfo rmed at: [facility] [address] [place] [phone] Juan cesar MD CLIA: [id number] Not Available [facility] (Lab Registration) [address] [place], [address], 06/29/2024 17:28:55 06/29/2006/29/2024 CULTU RE URINE results LT 06-30 727 No Signi figan t Growt h at Day 1 LT 07-01 654 No Signi fican t Growt h at Day 2 Not Available [facility] (Lab Registration) [address] [place], [address], 07/01/2024 06:55:48 06/29/2006/29/2024 CULTU RE URINE note Unles s other dennis noted testi ng perfo rmed at: [facility] [address] [place] [address] [phone] Juan cesar MD CLIA: [id number] Not Available [facility] (Lab Registration) [address] [place], [address], 07/01/2024 06:55:48 06/29/2006/29/2024 urina lysis , dipst ick Leukocytes (reference range) negati ve Not Available [facility] [place] [address] [place], [address], 06/29/2024 14:46:24 06/29/2006/29/2024 urina lysis , dipst ick Nitrite (reference range:) negati ve Not Available [facility] [place] [address] [place], [address], 06/29/2024 14:46:24 06/29/2006/29/2024 urina lysis , dipst ick Urobilinogen (reference range) 0.2 Not Available [place] [address] [place], [address], 06/29/2024 14:46:24 06/29/20 24 06/29/2024 urina lysis , dipst ick Protein (reference range) negati ve Not Available [facility] [place] [address] [place], [address], 06/29/2024 14:46:24 06/29/2006/29/2024 urina lysis , dipst ick pH (reference range 5-8.5) 5.5 Not Available [address] [place], [address], 06/29/2024 14:46:24 06/29/2006/29/2024 urina lysis , dipst ick Blood (reference range:) modera te Not Available [address] [place], [address], 06/29/2024 14:46:24 06/29/2006/29/2024 urina lysis , dipst ick Specific [place] (reference range) 1.020 Not Available [address] [place], [address], 06/29/2024 14:46:24 06/29/2006/29/2024 urina lysis , dipst ick Ketone (reference range) negati ve Not Available [address] [place], [address], 06/29/2024 14:46:24 06/29/20 24 06/29/2024 urina lysis , dipst ick Bilirubin (reference range) negati ve Not Available [address] [place], [address], 06/29/2024 14:46:24 06/29/2006/29/2024 urina lysis , dipst ick Glucose (reference range) negati ve Not Available [address] [place], [address], 06/29/2024 14:46:24 06/29/20 24 06/29/2024 urina lysis , dipst ick Color (reference range: yellow-brown ) Yellow Not Available [address] [place], [address], 06/29/2024 14:46:24 06/29/20 24 06/29/2024 micro album in/cr eatin ine, mass ratio , urine Microalbumin 30 Not Available [address] [place], [address], 06/29/2024 14:46:32 06/29/20 24 06/29/2024 micro album in/cr eatin ine, mass ratio , urine Creatinine 200 Not Available [address] [place], [address], 06/29/2024 14:46:32 06/29/20 24 06/29/2024 micro album in/cr eatin ine, mass ratio , urine Ratio <30 normal Not Available [facility] [address] [place], [address], 06/29/2024 14:46:32 10/11/19 25 10/11/2024 CBC AUTO W DIFF WBC 11.1 10 4.5-11 .5 Not Available [facility] (Lab Registration) [address] [place], [address], 10/11/2024 13:21:23 10/11/19 25 10/11/2024 CBC AUTO W DIFF RBC 4.30 10 4.25-5 .57 Not Available [facility] (Lab Registration) [address] [place], [address], 10/11/2024 13:21:23 10/11/19 25 10/11/2024 CBC AUTO W DIFF HGB 11.7 g/dL 12.0-1 5.7 low Not Available [facility] (Lab Registration) [address] [place], [address], 10/11/2024 13:21:23 10/11/19 25 10/11/2024 CBC AUTO W DIFF HCT 39.2 % 36.0-4 7.0 Not Available [facility] (Lab Registration) [address] [place], [address], 10/11/2024 13:21:23 10/11/19 25 10/11/2024 CBC AUTO W DIFF MCV 91.2 fL 80-95 Not Available [facility] (Lab Registration) [address] [place], [address], 10/11/2024 13:21:23 10/11/19 25 10/11/2024 CBC AUTO W DIFF MCH 27.2 pg 27.0-3 4.0 Not Available [facility] (Lab Registration) [address] [place], [address], 10/11/2024 13:21:23 10/11/19 25 10/11/2024 CBC AUTO W DIFF MCHC 29.8 g/dL 32.0-3 6.0 low Not Available [facility] (Lab Registration) [address] [place], [address], 10/11/2024 13:21:23 10/11/19 25 10/11/2024 CBC AUTO W DIFF platelet count 279 10 150-45 0 Not Available [facility] (Lab Registration) [address] [place], [address], 10/11/2024 13:21:23 10/11/19 25 10/11/2024 CBC AUTO W DIFF RDW 14.5 % 12.3-1 5.1 Not Available [facility] (Lab Registration) [address] [place], [address], 10/11/2024 13:21:23 10/11/19 25 10/11/2024 CBC AUTO W DIFF MPV 9.7 fL 7.4-10 .4 Not Available [facility] (Lab Registration) [address] [place], [address], 10/11/2024 13:21:23 10/11/19 25 10/11/2024 CBC AUTO W DIFF granulocyte% 78.5 % 40-75 high Not Available [facility] (Lab Registration) [address] [place], [address], 10/11/2024 13:21:23 10/11/19 25 10/11/2024 CBC AUTO W DIFF lymphocyte% 11.9 % 15-57 low Not Available [facility] (Lab Registration) [address] [place], [address], 10/11/2024 13:21:23 10/11/19 25 10/11/2024 CBC AUTO W DIFF monocyte% 7.6 % 4.0-12 .0 Not Available [facility] (Lab Registration) [address] [place], [address], 10/11/2024 13:21:23 10/11/19 25 10/11/2024 CBC AUTO W DIFF eosinophil% 1.5 % 0.0-4. 0 Not Available [facility] (Lab Registration) [address] [place], [address], 10/11/2024 13:21:23 10/11/19 25 10/11/2024 CBC AUTO W DIFF basophil% 0.2 % 0.0-1. 0 Not Available [facility] (Lab Registration) [address] [place], [address], 10/11/2024 13:21:23 10/11/19 25 10/11/2024 CBC AUTO W DIFF immature granulocytes % 0.3 % 0.0-0. 8 Not Available [facility] (Lab Registration) [address] [place], [address], 10/11/2024 13:21:23 10/11/19 25 10/11/2024 CBC AUTO W DIFF granulocyte# 8.67 10 Not Available [facility] (Lab Registration) [address] [place], [address], 10/11/2024 13:21:23 10/11/19 25 10/11/2024 CBC AUTO W DIFF lymphocyte# 1.32 10 Not Available [facility] (Lab Registration) [address] [place], [address], 10/11/2024 13:21:23 10/11/19 25 10/11/2024 CBC AUTO W DIFF monocyte# 0.84 10 Not Available [facility] (Lab Registration) [address] [place], [address], 10/11/2024 13:21:23 10/11/19 25 10/11/2024 CBC AUTO W DIFF eosinophil# 0.17 10 Not Available [facility] (Lab Registration) [address] [place], [address], 10/11/2024 13:21:23 10/11/19 25 10/11/2024 CBC AUTO W DIFF basophil# 0.02 10 Not Available [facility] (Lab Registration) [address] [place], [address], 10/11/2024 13:21:23 10/11/19 25 10/11/2024 CBC AUTO W DIFF immature granulocytes # 0.03 10 Not Available [facility] (Lab Registration) [address] [place], [address], 10/11/2024 13:21:23 10/11/19 25 10/11/2024 CBC AUTO W DIFF manual differential NO Not Available [facility] (Lab Registration) [address] [place], [address], 10/11/2024 13:21:23 10/11/19 25 10/11/2024 CBC AUTO W DIFF note Unles s other dennis noted testi ng perfo rmed at: [facility] [address] [place] [address] [phone] Juan cesar MD CLIA: [id number] Not Available [facility] (Lab Registration) [address] [place], [address], 10/11/2024 13:21:23 10/11/19 25 10/11/2024 HEMOG LOBIN A1C glycosylated hemoglobin A1C 5.7 % 4.5-6. 2 Not Available [facility] (Lab Registration) [address] [place], [address], 10/11/2024 13:34:35 10/11/19 25 10/11/2024 HEMOG LOBIN A1C estimated average glucose 117 mg/dL 82-131 Not Available [facility] (Lab Registration) [address] [place], [address], 10/11/2024 13:34:35 10/11/19 25 10/11/2024 HEMOG LOBIN A1C note Unles s other dennis noted testi ng perfo rmed at: [facility] [place] [address] [phone] Juan cesar MD CLIA: [id number] Not Available [facility] (Lab Registration) [address] [place], [address], 10/11/2024 13:34:35 10/11/19 25 10/11/2024 B-TYP E NATRI URETI C PEPTI DE BNP B-type natriuretic peptide BNP 37.3 pg/mL 0.0-10 0 Non-C HF: Less than 100 pg/mL Class I: Great er than 100 pg/mL - Patie nts have no limit ation s of physi phillip activ ity and have no sympt oms with ordin pete physi phillip activ ity. Class II: Great er than 221 pg/mL - Patie nts have a sligh t limit ation of physi phillip activ ity and have sympt oms with ordin pete physi phillip activ ity. Class III: Great er than 459 pg/mL - Patie nts have a marke d limit ation of physi phillip activ ity and have sympt oms with less than ordin pete physi phillip activ ity, but not at rest. Class IV : Great er than 1006 pg/mL -Gunjan ents are unabl e to perfo rm any physi phillip activ ity witho ut disco mfort . Not Available [facility] (Lab Registration) [address] [place], [address], 10/11/2024 13:39:56 10/11/19 25 10/11/2024 B-TYP E NATRI URETI C PEPTI DE BNP note Unles s other dennis noted testi ng perfo rmed at: [facility] [address] [place] [address] [phone] Juan cesar MD CLIA: [id number] Not Available [facility] (Lab Registration) [address] [place], [address], 10/11/2024 13:39:56 10/11/19 25 10/11/2024 VITAM IN B12 vitamin B12 750 pg/mL 193-98 6 Not Available [facility] (Lab Registration) [address] [place], [address], 10/11/2024 14:02:29 10/11/19 25 10/11/2024 VITAM IN B12 folate (folic acid), serum 7.3 NG/mL 8.6-58 .9 low Not Available [facility] (Lab Registration) [address] [place], [address], 10/11/2024 14:02:29 10/11/19 25 10/11/2024 VITAM IN B12 note Unles s other dennis noted testi ng perfo rmed at: [facility] [address] [place] [address] [phone] Juan cesar MD CLIA: [id number] Not Available [facility] (Lab Registration) [address] [place], [address], 10/11/2024 14:02:29 10/11/19 25 10/11/2024 COMP METAB OLIC PANEL sodium 142 mmol/ L 136-14 5 Not Available [facility] (Lab Registration) [address] [place], [address], 10/11/2024 14:02:30 10/11/19 25 10/11/2024 COMP METAB OLIC PANEL potassium 4.2 mmol/ L 3.5-5. 1 Not Available [facility] (Lab Registration) [address] [place], [address], 10/11/2024 14:02:30 10/11/19 25 10/11/2024 COMP METAB OLIC PANEL chloride 103 mmol/ L 98-107 Not Available [facility] (Lab Registration) [address] [place], [address], 10/11/2024 14:02:30 10/11/19 25 10/11/2024 COMP METAB OLIC PANEL carbon dioxide 31 mmol/ L 21-32 Not Available [facility] (Lab Registration) [address] [place], [address], 10/11/2024 14:02:30 10/11/19 25 10/11/2024 COMP METAB OLIC PANEL anion gap 8.0 Not Available [facility] (Lab Registration) [address] [place], [address], 10/11/2024 14:02:30 10/11/19 25 10/11/2024 COMP METAB OLIC PANEL glucose 113 mg/dL 70-110 high Not Available [facility] (Lab Registration) [address] [place], [address], 10/11/2024 14:02:30 10/11/19 25 10/11/2024 COMP METAB OLIC PANEL blood urea nitrogen 20 mg/dL 7-18 high Not Available [facility] (Lab Registration) [address] [place], [address], 10/11/2024 14:02:30 10/11/19 25 10/11/2024 COMP METAB OLIC PANEL creatinine 1.1 mg/dL 0.6-1. 0 high Not Available [facility] (Lab Registration) [address] [place], [address], 10/11/2024 14:02:30 10/11/19 25 10/11/2024 COMP METAB OLIC PANEL BUN/creatini ne ratio 18.2 9-21 Not Available [facility] (Lab Registration) [address], [place], [address], 10/11/2024 14:02:30 10/11/19 25 10/11/2024 COMP METAB OLIC PANEL estimated glom filtration rate 55 mL/mi n >60- low GFR LIMIT ATION : The eGFR equat [...] guerrero ing kiney funct ion. Not Available [facility] (Lab Registration) [address], [place], [address], 10/11/2024 14:02:30 10/11/19 25 10/11/2024 COMP METAB OLIC PANEL total protein 7.5 g/dL 6.4-8. 2 Not Available [facility] (Lab Registration) [address] [place], [address], 10/11/2024 14:02:30 10/11/19 25 10/11/2024 COMP METAB OLIC PANEL albumin 3.4 g/dL 3.4-5. 0 Not Available [facility] (Lab Registration) [address] [place], [address], 10/11/2024 14:02:30 10/11/19 25 10/11/2024 COMP METAB OLIC PANEL calcium 9.9 mg/dL 8.5-10 .1 Not Available [facility] (Lab Registration) [address] [place], [address], 10/11/2024 14:02:30 10/11/19 25 10/11/2024 COMP METAB OLIC PANEL corrected calcium 10.4 mg/dL 8.5-10 .1 high Not Available [facility] (Lab Registration) [address] [place], [address], 10/11/2024 14:02:30 10/11/19 25 10/11/2024 COMP METAB OLIC PANEL bilirubin total 0.3 mg/dL 0.4-1. 5 low Not Available [facility] (Lab Registration) [address] [place], [address], 10/11/2024 14:02:30 10/11/19 25 10/11/2024 COMP METAB OLIC PANEL AST (SGOT) 17 U/L 15-37 Not Available [facility] (Lab Registration) [address] [place], [address], 10/11/2024 14:02:30 10/11/19 25 10/11/2024 COMP METAB OLIC PANEL ALT (SGPT) 38 U/L 12-78 Not Available [facility] (Lab Registration) [address] [place], [address], 10/11/2024 14:02:30 10/11/19 25 10/11/2024 COMP METAB OLIC PANEL alk phosphatase 100 U/L 53-141 Not Available [facility] (Lab Registration) [address] [place], [address], 10/11/2024 14:02:30 10/11/19 25 10/11/2024 COMP METAB OLIC PANEL note Unles s other dennis noted testi ng perfo rmed at: [facility] [place] [address] [phone] Juan cesar MD CLIA: [id number] Not Available [facility] (Lab Registration) [address] [place], [address], 10/11/2024 14:02:30 10/11/19 25 10/11/2024 MIGUEL TIN ferritin 165 NG/mL 8-388 Not Available [facility] (Lab Registration) [address] [place], [address], 10/11/2024 14:02:32 10/11/19 25 10/11/2024 MIGUEL TIN note Unles s other dennis noted testi ng perfo rmed at: [facility] [address] [place] [address] [phone] Juan cesar MD CLIA: [id number] Not Available [facility] (Lab Registration) [address] [place], [address], 10/11/2024 14:02:32 10/11/19 25 10/11/2024 AMYLA SE amylase 44 U/L 25-115 Not Available [facility] (Lab Registration) [address] [place], [address], 10/11/2024 14:02:33 10/11/19 25 10/11/2024 AMYLA SE note Unles s other dennis noted testi ng perfo rmed at: [facility] [address] [place] [address] [phone] Juan cesar MD CLIA: [id number] Not Available [facility] (Lab Registration) [address] [place], [address], 10/11/2024 14:02:33 10/11/19 25 10/11/2024 LIPAS E lipase 27 U/L 16-77 Not Available [facility] (Lab Registration) [address] [place], [address], 10/11/2024 14:02:34 10/11/19 25 10/11/2024 LIPAS E note Unles s other dennis noted testi ng perfo rmed at: [facility] [address] [place] [address] [phone] Juan cesar MD CLIA: [id number] Not Available [facility] (Lab Registration) [address] [place], [address], 10/11/2024 14:02:34 10/11/19 25 10/11/2024 IRON/ TIBC/ %SAT (IRON STUDI ES) iron 55 ug/dL 35-150 Not Available [facility] (Lab Registration) [address] [place], [address], 10/11/2024 14:02:35 10/11/19 25 10/11/2024 IRON/ TIBC/ %SAT (IRON STUDI ES) total iron bind cap (TIBC) 326 ug/dL 250-45 0 Not Available [facility] (Lab Registration) [address] [place], [address], 10/11/2024 14:02:35 10/11/19 25 10/11/2024 IRON/ TIBC/ %SAT (IRON STUDI ES) % saturation 17 % 15-55 Not Available [facility] (Lab Registration) [address] [place], [address], 10/11/2024 14:02:35 10/11/19 25 10/11/2024 IRON/ TIBC/ %SAT (IRON STUDI ES) note Unles s other dennis noted testi ng perfo rmed at: [facility] [address] [place] [address] [phone] Juan cesar MD CLIA: [id number] Not Available [facility] (Lab Registration) [address] [place], [address], 10/11/2024 14:02:35 08/23/20 24 08/23/2024 CT, brain , w/o contr ast [facility] [address] [place] [address] Phone: Fax: Name: ALYSSA CAMPOS Exam Date: 2023 : 956 Age 69 years Gender : F Access ion: [id number] Physic annmarie: AMBURG EY, TAFFAN Y [place] HSV: Outpat ient Exam: CT BRAIN HEAD WO EXAM DESCRI PTION: CT BRAIN HEAD WO CLINIC AL HISTOR Y: 69 years Female , hemipl egia COMPAR NELI: None. Axial CT images of the brain were obtain ed from skull base to vertex withou t intrav enous contra st. Frank l and sagitt al reform ats were obtain ed. Dose reduct ion techni ques includ ing automa felipa exposu re contro l, adjust ment of the [place] and/or MA and iterat cristobal recons tructi on were utiliz ed. FINDIN GS: No acute intra or extra- axial hemorr rocco, space- occupy ing lesion or acute infarc t. Ventri cles are normal in size, shape and symmet ry. Brain parenc hymal volume is approp riate for the age of the patien t. Christiansen-w shilpa matter differ entiat ion is within normal limits . Few scatte red perive ntricu lar and subcor tical white matter hypode nsitie s are noted, may repres ent microv ascula r change s. Visual ized osseou s struct ures are unrema rkable . Parana karin sinuse s and the mastoi d air cells are clear. IMPRES KEM: No acute intrac ranial proces s. Minor microv ascula r change s. Electr onical ly signed by: Allie Jarrett MD 2023 02:14 PM EST RP Workst ation: [id number] Dictat ed By: ALLIE JARRETT Transc ribed By: Transc ribed On: 2023 2:04 PM Electr onical ly signed by: ALLIE JARRETT 2023 Thank you for referr ALYSSA P[facility]rez to [facility] Legall y authen ticate d by LUIZA RITTER 2023-09 14:04: 33 CC'ed Logic: Orderi ng Provid er: [facility] Y CC Provid er: [facility] Y Attend ing Provid er: [facility] Y Referr ing Provid er: [facility] Y Admitt ing Provid er: [facility] Y shannan [facility] (Radiology) [address] , [place], [address], 08/26/2024 08:57:09 Result Notes None recorded. Problems Name Problem SNOMED Code Status Onset Date Resolution Date Notes Provider Name and Address Organization Details Recorded Time Type 2 diabetes mellitus 09050959 Active 2023 Karen Pardini null, [place] - [facility] [place] & [place] 4 14:38:38 Essential hypertension 66381502 Active 2023 Karen Pardini null, [place] [facility] [place] & [place] 14:38:45 Edema of lower extremity 541004195 Active 2023 Karen Pard[place] null, [place] [facility] [place] & [place] 4 14:38:55 Hyperlipidemia 93515756 Active 2023 Karen Pard[place] null, [place] [facility] [place] & [place] 4 14:39:02 Iron deficiency anemia 30951566 Active 2023 Karen Pardini null, [place] [facility] [place] & [place] 4 14:39:11 Disorder of vitamin B12 805289320 Active 2023 Karen Pardini null, [place] [facility] [place] & [place] 14:39:26 Problem Notes None recorded. Procedures Surgical History Date Name Laterality Status Provider Name and Address Organization Details Recorded Time Gallbladder Surgery completed Janeth josiane Armstrongdini [place] [facility] [place] & [place] 14:41:10 transesophageal echocardiography completed Karenswathi [place]dini [place] [facility] [place] 14:41:18 esophagogastroduodenoscopy completed Karen Pardini [place] [facility] [place] & [place] 14:41:25 Imaging Results None recorded. Procedure Notes None recorded. Medical Equipment None Reported. Allergies Allergen ID Allergen Name Allergen Category Reaction Reaction Severity Criticality Documentation Date Start Date Code Code System Note Provider Name and Address Organization Details Recorded Time 608453 Ceclor medicatio n Not available Not available Not available 06/29/2024 04493 5 RxNorm Karen terry, [place] [facility] & [place] 4 14:36:00 102411 ampicilli n medicatio n Not available Not available Not available 06/29/2024 733 RxNorm Karen Dobbs null, [place] - [facility] & [place] 4 14:36:05 Medications Name Sig Start Date Stop Date Status Note LastModified by Organization Details LastModified Time furosemide 40 mg tablet TAKE 1 TABLET BY MOUTH TWICE DAILY NEEDED active Not Available Not Available No t Available atorvastati n 20 mg tablet TAKE 1 TABLET BY MOUTH ONCE DAILY active Not Available Not Available No t Available Carafate 100 mg/mL oral suspension Take 10 mL 4 times a day by oral route as needed for 14 days, for before meals. 2024 active Not Available Not Available Not Avai lable Iron (ferrous sulfate) 325 mg (65 mg iron) tablet Take 1 tablet every day by oral route as directed. active Not Available Not Available No t Available hydrochloro thiazide 50 mg tablet TAKE 1 TABLET BY MOUTH TWICE DAILY active Not Available Not Available No t Available meloxicam 15 mg tablet Take 1 tablet every day by oral route for 14 days. 10/19 completed Not Available Not Available Not Available folic acid 400 mcg tablet Take 1 tablet every day by oral route for 90 days. 2024 active Not Available Not Available Not Avai lable omeprazole 40 mg capsule,del ayed release Take 1 capsule every day by oral route for 90 days. 2024 active Not Available Not Available Not Avai lable spironolact one 25 mg tablet TAKE 1 TABLET BY MOUTH ONCE DAILY active Not Available Not Available No t Available Vitamin D3 10 mcg (400 unit) tablet Take 1 tablet every day by oral route as directed. active Not Available Not Available No t Available famotidine 20 mg tablet Take 1 tablet twice a day by oral route for 90 days. 2024 active Not Available Not Available Not Avai lable OneTouch Ultra Test strips USE 1 STRIP TO CHECK GLUCOSE TWICE DAILY active Not Available Not Available No t Available baclofen 10 mg tablet Take 1 tablet twice a day by oral route for 14 days. 2023 active Not Available Not Available Not Avai lable pantoprazol e 40 mg tablet,sherly yed release TAKE 1 TABLET BY MOUTH ONCE DAILY 06/29 completed Not Available Not Available Not Available lisinopril 10 mg tablet TAKE 1 TABLET BY MOUTH ONCE DAILY active Not Available Not Available No t Available hydrochloro thiazide 25 mg tablet TAKE 1 TABLET BY MOUTH ONCE DAILY 06/29 completed Not Available Not Available Not Available furosemide 20 mg tablet Take 1 tablet every day by oral route in the morning, for as needed. 2024 active Not Available Not Available Not Avai lable albuterol sulfate HFA 90 mcg/actuati on aerosol [...] Not Available Not Available No t Available spironolact one 50 mg tablet Take 1 tablet every day by oral route for 90 days. 2024 active Not Available Not Available Not Avai lable trospium 20 mg tablet TAKE 1 TABLET BY MOUTH TWICE DAILY 06/29 completed Not Available Not Available Not Available Calcium 500 + D 500 mg-10 mcg (400 unit) tablet Take 1 tablet every day by oral route. active Not Available Not Available No t Available Mounjaro 5 mg/0.5 mL subcutaneou s pen injector Inject 5 mg every week by subcutane ous route as directed for 90 days. 2024 active Not Available Not Available Not Avai lable Mounjaro 2.5 mg/0.5 mL subcutaneou s pen injector Inject 2.5 mg every week by subcutane ous route for 30 days. 2023 active Not Available Not Available Not Avai lable Lagevrio 200 mg capsule (EUA) TAKE 4 CAPSULES BY MOUTH EVERY 12 HOURS FOR 5 DAYS 06/29 completed Not Available Not Available Not Available Vitals Date Recorded Body height Body mass index (BMI) Body weight Body temperature Oxygen saturation Oxygen saturation in Arterial blood by Pulse oximetry Heart rate Respiratory rate Systolic blood pressure Diastolic blood pressure Provider Name and Address Organization Details Last Updated DateTime 5 152.4 cm 52.5 kg/m2 124807. 35 g 97.5 [degF] 94 % 94 % 88 /min 18 /min 108 mm[Hg] 62 mm[Hg] Elkin PARRISH [facility] & [place] 5 12:02:47 Date Recorded Body height Body temperature Oxygen saturation Oxygen saturation in Arterial blood by Pulse oximetry Heart rate Respiratory rate Systolic blood pressure Diastolic blood pressure Provider Name and Address Organization Details Last Updated DateTime 4 152.4 cm 98.4 [degF] 95 % 95 % 91 /min 18 /min 121 mm[Hg] 73 mm[Hg] Karen PARRISH [facility] & [place] 4 14:35:03 Date Recorded Body height Body temperature Oxygen saturation Oxygen saturation in Arterial blood by Pulse oximetry Heart rate Systolic blood pressure Diastolic blood pressure Provider Name and Address Organization Details Last Updated DateTime 4 152.4 cm 97.4 [degF] 97 % 97 % 81 /min 139 mm[Hg] 76 mm[Hg] Coy Sifuentes n [facility] & [place] 4 15:19:09 Social History Question Answer Notes LastModified by Organizat ion Details LastModified Time Tobacco Smoking Status Never Smoker Karen Dobbs null, [place] - [facility] & [place] 06/29/2024 14:40:16 Do You Have An Advance Directive? No Information n ot available 06/29/2024 Are You Blind Or Do [...] Do You Have A Medical Power Of Dynamiter? No Information not available 06/29/2024 What Was The Date Of Your Most Recent Tobacco Screening? 08/18/2024 [email or web address] Information not available 08/18/2024 Do You Have Any Pets? Yes Information [...] Information no t available 06/29/2024 Do You Use Sunscreen Routinely? Yes Information not available 06/29/2024 Has Tobacco Cessation Counseling Been Provided? No Information not available 06/29/2024 Do You Have Difficulty Walking Or Climbing Stairs? Yes Information not available 06/29/2024 Are You Currently In School? No Information not available 06/29/2024 Sex: Unknown Functional Status Question Answer Note LastModified by Organizat ion Details LastModified Time Do you use any illicit or recreational drugs? No Information not available 06/29/2024 Do you or have you ever used any other forms of tobacco or nicotine? No Information not available 06/29/2024 What is your level of alcohol consumption? None Information not available 06/29/2024 Are you currently employed? No Information not available 06/29/2024 Do you have [...] Mental Status Question Answer Note LastModified by Organizat ion Details LastModified Time Do you feel stressed (tense, restless, nervous, or anxious, or unable to sleep at night)? [id number] Information not available 06/29/2024 Do you have difficulty concentrating, remembering or making decisions? Yes Information no t available 06/29/2024 Family History Relationship Description Onset Age of this Age Resolved Age Notes LastModified by Organization Details LastModified Time Mother Malignant tumor of colon CHART_MERGE Not available 10/09 08:46:20 Medical History No medical history recorded. Gynecological HistoryNo gynecological history recorded. Obstetrics History GPAL:G 0 P 0 0 0 0 Immunizations Vaccine Type Date Status Note Provider Nam e and Address Organization Details Recorded Time Influenza, recombinant, quadrivalent, PF 9 completed Karen Pardini [place] [facility] [place] 06/29/2024 14:35:50 zoster recombinant 2 completed Karen [place] [facility] [place] 06/29/2024 14:35:50 Influenza, high-dose, quadrivalent, PF 3 completed Karen [place] [facility] [place] 06/29/2024 14:35:50 Influenza, high-dose, quadrivalent, PF 2 completed [place] [facility] [place] 06/29/2024 14:35:50 Influenza, high-dose, quadrivalent, PF 1 completed Karen [place] [facility] [place] 06/29/2024 14:35:50 COVID-19, mRNA, LNP-S, PF, 100 mcg/0.5mL dose or 50 mcg/0.25mL dose 1 completed Karen [place] [facility] [place] 06/29/2024 14:35:50 COVID-19, mRNA, LNP-S, PF, 100 mcg/0.5mL dose or 50 mcg/0.25mL dose 1 completed Karen [place] [facility] [place] & [place] 06/29/2024 14:35:50 Pneumococcal conjugate PCV20, polysaccharide [id number] conjugate, adjuvant, PF 3 completed Karen [place] [facility] [place] 06/29/2024 14:35:50 pneumococcal polysaccharide PPV23 6 completed Karen [place] [facility] [place] 06/29/2024 14:35:50 pneumococcal polysaccharide PPV23 2 completed Karen [place] [facility] [place] 06/29/2024 14:35:50 Tdap 3 completed [place] [facility] [place] 06/29/2024 14:35:50 Influenza, high-dose, trivalent, PF 5 completed SEFERINO LAWRENCE NP [address] [place], [address], [place] [facility] [place] & [place] 10/19/2024 15:47:58 Past Encounters Encounter ID Performer Location Encounter Start Date Encounter Closed Date Diagnosis/Indication Diagnosis SNOMED-CT Code Diagnosis ICD10 Code Diagnosis Note [id number] SEFERINO LAWRENCE NP [address] [address] [place] [id number] 06/29/2024 14:07:12 06/29/2024 14:51:48 Essential hypertension [id number] I10 educated on goal of less than 130/90advi sed low sodium diet, healthy lifestyle including exercise as ablecontin ue current medication regimenawa iting lab workER if any symptoms such as chest pain, shortness of breath Blood in urine [id number] R31.9 send for urine culture; has urinated on herself in the clinic Type 2 chari betes mellitus 84515217 E11.9 take medication s as prescribed awaiting [id number] forced diet and lifestyle changesdai ly foot checkyearl y eye examfollow up every 3 months Anemia 732074777 D64.9 recheck lab work todaydenie s any bleeding or bruisingCu rrently on iron and B12 supplement ation Edema [id number] R60.9 concerns for lymphedema but awaiting lab work and [facility] can help with wrapping lower ext Impaired mobility 761510 05 Z74.09 home health referral placed needs nursing/ pt/ ot evals Vitamin D deficiency [id number] 12987 E55.9 taking supplement ation recheck lab work today Intolerant of cold 31120 000 R68.89 awaiting lab work Gastroesop hageal reflux disease without esophagitis [id number] K21.9 Avoid spicy foods, carbonated beverages, lying down 30 minutes to 1 hour after eatingEat smaller portion sizesTake medication s as prescribed Weight management [id number] SEFERINO LAWRENCE NP [address] [place] [id number] 08/18/2024 15:08:51 08/18/2024 15:57:28 Left hemiparesis [id number] G81.90 Left-sided weaknessDaniel butterfield presents with left-sided weakness, particular ly affecting the left leg. The patient reports only 20% mobility and strength on the left side and inability to lift the left leg independen tly. This weakness appears to be unilateral , suggesting a possible neurologic al etiology. The clinician is jessica g a potential stroke, although there is no confirmed history of one. The patient's history includes a diabetic coma last year and reported incidents of being dropped by paramedics on the affected side. Previous imaging studies (X-rays and MRIs) have been done on the hip, but no brain imaging has been performed to date.- Order CT scan of the head to investigat e potential neurologic al causes- Referral for home health and physical therapy- Continue monitoring and reassessme nt of left-sided weakness Low back pain 075198831 M54.50 Chronic pain (back, hip, and knee)Patie nt reports worsening pain in the back, hip, and knee over the past week, particular ly with prolonged walking. The back pain is localized to the middle lower back. Pain appears to radiate from the back to the hip and knee. Patient had been prescribed a muscle relaxer previously but has run out of medication .- Prescribe muscle relaxer (to be taken at night due to potential drowsiness )- Prescribe low-dose anti-infla mmatory medication - Advise patient to call for X-ray orders if pain does not improve- Continue physical therapy through home health services Gastroesop hageal reflux disease without esophagitis [id number] K21.9 Avoid spicy foods, carbonated beverages, lying down 30 minutes to 1 hour after eatingEat smaller portion sizesTake medication s as prescribed Weight management Patient reports recent onset of upset stomach and food regurgitat ion over the past couple of weeks. Currently taking famotidine twice daily. Pharmacist has suggested potential medication interactio ns.- Prescribe additional reflux medication to supplement famotidine - Monitor for improvemen t and potential medication interactio ns Nutritiona l deficiency disorder 71609223 E63.9 Patient has low albumin levels, which may contribute to swelling. Vitamin D levels are slightly low, despite current supplement ation. Vitamin B12 levels are within normal range.- Encourage continued consumptio n of protein shake for breakfast to address low albumin- Continue current vitamin D supplement ation- No additional interventi on needed for vitamin B12 at this time [id number] SEFERINO LAWRENCE NP [facility] [address] [place], [place] [phone] 10/11/2024 11:46:33 10/11/2024 12:49:14 Anemia 772148847 D64.9 recheck lab work todaydenie s any bleeding or bruisingCu rrently on iron and B12 supplement ation Type 2 chari betes mellitus 74702690 E11.9 take medication s as prescribed awaiting altd7asthn forced diet and lifestyle changesdai ly foot checkyearl y eye examfollow up every 3 months Essential hypertension 23756056 I10 educated on goal of less than 130/90advi sed low sodium diet, healthy lifestyle including exercise as ablecontin ue current medication regimenER if any symptoms such as chest pain, shortness of breath Epigastric pain 90326428 R10.13 Awaiting lab work, possible history of gastric ulcer but unsure, has nausea after eating. Denies any alcohol use. Recommend GI referral Daytime hypersomnia [id number] 0278 G47.19 sleep study claudia martin 5-6 years ago at [facility] told that she had sleep apnea but no follow up, never received machine Bilateral foot joint pain [id number] 2719984 M79.671 M79.672 referral to Podiatry, needs [facility] due to closer to where she lives. Dyspnea on exertion 6084 5006 R06.09 Awaiting lab work, unsure what medication she is taking, does have furosemide on her medication list that was twice daily as needed from previous provider last filled in April. She also has hydrochlor othiazide as well and spironolac tone. But again is unsure what she is taking versus not taking. Discussed importance of knowing what she is taking so I can make appropriat e changes. Chronic pain 55807352 G8 9.29 Request pain specialist referral pain level 7/10 today, mainly in bilateral hips. Nausea 932844057 R11.0 Poor historian, omeprazole was sent in August but does not look like it was picked up, patient is unsure due to not knowing what medication she is taking. Discussed concerns, needs to see a GI specialist especially if she has history of ulcer. She denies any vomiting, bloody or tarry stools. Administra tion of influenza vaccine 77514549 Z23 Gastroesop hageal reflux disease without esophagitis 557907849 K21.9 Discussed lifestyle changes, see GI as above continue with famotidine , was supposed to add on omeprazole therapy but per my list shows not picked up, resend today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
--- OUTSIDE RECORDS SUMMARY | 2025-02-15 15:28 | XMS_ITS | Encounter Summary ---
Author Organization [place] [address] Care Team Providers Care Refining Machine Operator Name Role Phone Garett Holt MD Unavailable [phone] Ruiz Stokes MD Unavailable [phone] Yenny Schwab MD Unavailable [phone] Abel Pretty MD Primary Care Provider Reason for Visit * Reason Onset Date Comments Central Order Completion Outreach 01/18/2025 mammo Encounter Details Date Type Department Care Team (Late st Contact Info) Description 01/18/2025 Patient Outreach [facility] [address] [place] [address] Abel Pretty MD [address] [place] [address] Central Order Completion Outreach (mammo) Social History Tobacco Use Types [...] Date Recorded PHQ-2 Total Score 0 01/03/2024 [facility] [...] documented in this encounter Progress Notes * Jazzy Issa RN - 01/24/2025 11:59 AM EDT SEP Order Completion Outcome Tracking Contact Attempt:: Final Mammogram Outcome:: Left Voicemail to Return Call at [phone] * Jazzy Issa RN - 01/18/2025 2:34 PM EDT SEP Order Completion Outcome Tracking Contact Attempt:: First Mammogram Outcome:: Left Voicemail to Return Call at [phone], [email or web address] Message documented in this encounter Plan of Treatment Not on file documented as of this encounter Goals Goal Patient Goal Type Associated Problems Recent Progress Patient-Stated? Author Blood Pressure < 140/90 Blood Pressure 110/72(04/09 2:44 PM EDT) No Rachel Rogers RMA BMI (Calculated) < 30 General 50.9(2023 2:44 PM EDT) No Rachel Rogers RMA Eat better, exercise, reach an ideal body weight General No Ni Clinton parking patroller Healing General On track(12/03 9:18 AM EDT) No Bessie Morse RN Note: Wound volume reduction goals 50% by week 4 50% by week 8 80% by week 12 100% by week 14 Problem Interventions Assess pain status. Assess wound size, kathi wound, drainage and odor. Educate patient and caregivers on signs and symptoms of infection, wound care and importance of prompt treatment. Assess patient/caregiver level of knowledge regarding diabetes, risk factors and diabetic foot care. Assess for peripheral edema. If present , measure ankle, calf and foot circumference on initial visit and as indicated. Assess pedal pulses on each visit. Use doppler if unable to palpate dorsalis pedal or posterior tibial pulses. Obtain initial physician orders for Diabetic Wounds to include HgbA1C, prealbumin, offloading, ankle-brachial index per vascular lab and appropriate dressing to maintain microenvironment conducive to healing. Assess for signs and symptoms of peripheral neuropathy weekly. Refer to PCP and/or Air Conditioning Technician, Vascular Specialist as indicated. Monitor patient compliance with wound care, diabetes [...] documented as of this encounter Care Teams Refining Machine Operator Relationship Specialty Start Date End Date Abel Pretty MD [address] [place] [address] PCP - General Family Medicine 12/30/23 Garett Holt MD Internal Medicine-Gastroenterology 12/22/12 Ruiz Stokes MD [address] [place] [address] Internal Medicine-Cardiovascular Disease 07/25/14 Yenny Schwab MD [address] [address] Internal Medicine-Rheumatology 12/11/16 documented as of this encounter
--- OUTSIDE RECORDS SUMMARY | 2025-02-15 15:28 | XMS_ITS | Clinical Summary ---
Author Organization [facility] Address [address] [place] [address] Phone Care Team Providers Care Research Professional Name Role Phone Garett Holt MD Unavailable [phone] Ruiz Stokes MD Unavailable [phone] Yenny Schwab MD Unavailable [phone] Abel Pretty MD Primary Care Provider Allergies [...] 1 box 6 1 Active Nebulizer Accessories [facility] KitIndications:A cute bronchitis, unspecified organism Nebulizer accessories [...] eyes. 5 mL 2 Active Blood-Glucose Meter [facility] KitIndications:T ype 2 diabetes mellitus without complication, without long-term current use of insulin ([facility]) Per formulary. Dx. E11.9 1 Kit 2 Active Blood Sugar Diagnostic [facility] StripIndications :Type 2 diabetes mellitus without complication, without long-term current use of insulin ([facility]) 1 Strip by [facility].(Non-Drug; Combo Route) route 2 times daily. Per formulary. Dx: E11.9 100 Each 2 Active Lancets [facility] MiscIndications: Type 2 diabetes mellitus without complication, without long-term current use of insulin ([facility]) 1 Each by [facility].(Non-Drug; Combo Route) route 2 times daily. Per formulary. Dx: E11.9 100 Each 2 Active fluticasone propionate (FLONASE) 50 mcg/actuation Nasl [place], SuspensionIndica tions:ETD (Eustachian tube dysfunction), right Use 1 spray(s) in each nostril once daily 16 g 3 Active ONETOUCH DELICA PLUS LANCET 33 gauge [facility] USE TO CHECK GLUCOSE TWICE DAILY 3 [...] 5 3 Active Blood-Glucose Meter,Continuous (DEXCOM G7 LEARNING PROGRAM MANAGER) [facility] MiscIndications: Type 2 diabetes mellitus without complication, without long-term current use of insulin ([facility]),Severe diabetic hypoglycemia (HCC) 1 Each by [facility].(Non-Drug; Combo Route) route as needed. 1 Each 11 3 Active Blood-Glucose Sensor (DEXCOM G7 SENSOR) [facility] DeviceIndication s:Type 2 diabetes mellitus without complication, without long-term current use of insulin ([facility]),Severe diabetic hypoglycemia (HCC) 1 Each by [facility].(Non-Drug; Combo Route) route as [...] once daily 90 Tablet 1 4 Active sucralfate (CARAFATE) 100 mg/mL Oral [...] (before meals). 60 Tablet 3 4 Active hydroCHLOROthiaz urvashi 50 mg Oral TabletIndication s:Localized swelling of both lower legs,Lower extremity edema Take 1 tablet by mouth twice daily 60 Tablet 5 Active Active Problems Patient Care Coordination No te Formatting of this note migh t be different from the original. [facility] audit completed by Brynn Wu RN on 09/23/2023. Problem Noted Date Diagnosed Date Chronic bronchitis 07/16/2023 Epigastric pain 09/10/2020 Periumbilical abdominal pain 07/18/2020 Overview (07/18/2020): Added automatically from request for surgery [id number] Atherosclerosis of aorta 03/18/2019 PMR (polymyalgia rheumatica) 03/18/2019 Venous stasis dermatitis of left lower extremity 11/19/2018 Obesity, Class III, BMI 40-49.9 (morbid obesity) 03/24/2017 Type 2 diabetes mellitus without complication History of endometrial cancer 11/15/2015 Overview (11/15/2015): Had endometrial cancer. She had complete hysterectomy 08/2015. She sees dr Bre Selby at [facility] HAMIDA (obstructive sleep apnea) 12/28/2014 Ventral [...] Encounters Date Type Department Care Team Description 01/18/2025 Patient Outreach SEP [facility] [address] [facility] [place], [place] [id number] Abel Pretty MD Central Order Completion Outreach (mammo) from Last 3 Months Immunizations Immunization Administration Dates Next Due Influenza Virus Vaccine Quad rivalant, Flublok 06/10/2019 Moderna SARS-CoV-2 Vaccine 1 2+ Yrs (Light blue border) 01/14/2021,12/17/2020 Pneumococcal Conjugate Vaccine 20 Valent 023 Pneumococcal Polysaccharide 23 Valent 12/01/2021 ,11/15/2015 Quadrivalent Influenza High Dose 05/31/2023,10/0 09/2021,07/14/2021 Tdap 05/31/2023,01/06/2013 Zoster Recombinant 12/01/2021 Surgical History Surgery Date Site/Laterality Comments COLONOSCOPY UPPER GASTROINTESTINAL ENDOSCOPY UPPER GASTROINTESTINAL ENDOSCOPY 02/17/2013 N/A N/A Surgeon: aGrett Holt MD; Location: [facility]; Service: COLONOSCOPY 02/17/2013 N/A N/A Surgeon: Garett Holt MD; Location: [facility]; Service: CHOLECYSTECTOMY 09/08/1989 - 09/07/1990 CARDIAC CATHETERIZATION 04/08/2015 - 05/08/2015 DENTAL SURGERY upper and lower teeth removed ARTERY BIOPSY 01/06/2017 Right RIGHT TEMPORAL ARTERY BIOPSY ; Surgeon: Christa Chavez MD; Location: [facility] MAIN OR; Service: General VENTRAL HERNIA REPAIR 04/18/2020 N/A DAVINCI ROBOTIC VENTRAL HERNIA REPAIR WITH MESH ; Surgeon: Regan Butts MD; Location: [facility] MAIN OR; Service: General Medical devices from this surgery are in the Medical Devices section. UPPER GASTROINTESTINAL ENDOSCOPY 07/26/2020 N/A ESOPHAGOGASTRODUODENOS COPY with biopsy; Surgeon: Jomar Kim MD; Location: [facility]; Service: Endoscopy Medical History Medical History Date Comments Shortness of breath Asthma Other and unspecified angina pectoris Heartburn nausea after eat ing Ulcer Arthritis all over Neuromuscular disorder (HCC) fat ty tissue muscle left arm Anemia on iron Hyperlipidemia Hypertension Clotting disorder Fibromyalgia Sleep apnea SHOULD WEAR CPAP OR [...] Anes PTL Deidra A1 A5 Name Clin 1992 Term 40w 0d F Vag-S pont Epidura l Living Complications:None 1993 Term 40w 0d M Vag-S pont Epidura l Living Complications:None Last Filed Vital Signs Vital Sign Reading Time Taken Comments Blood Pressure 110/72 04/27/2024 2:44 PM EDT Pulse 80 04/27/2024 2:44 PM EDT Temperature 36.7 C (98.1 F) 03/27/2024 9:27 PM EDT Respiratory Rate 20 03/27/2024 9:27 PM EDT Oxygen Saturation 97% 03/28/2024 12:30 AM EDT Inhaled Oxygen Concentration - - Weight 122 kg (269 lb) 04/27/2024 2:44 PM EDT pe r patient Height 154.9 cm (5' 1 ) 04/27/2024 2:44 PM EDT Body Mass Index 50.83 04/27/2024 2:44 PM EDT Plan of Treatment Health Maintenance Due Date Last Done Comments Cologuard 2001 FIT 2001 Sigmoidoscopy 2001 Virtual Colonography 2001 RSV or 60+ (1 - Ris k 60-74 years 1-dose series) 2016 Breast Cancer Screening 11/14/2017 11/15/19 16 (Declined), 07/08/2012, 12/18/2006 Zoster (2 of 2) 01/26/2022 12/01/2021 Colon Cancer Screening 02/17/2023 Colonoscopy 02/17/2023 02/17/2013 Microalbuminuria 01/11/2024 01/10/2023, 09/2021, 05/25/2020, Additional history exists COVID-19 Vaccine (2023-2 5 season) 2024 01/14/2021, 12/17/2020 Lipids 05/31/2024 05/31/2023, 05/10, 07/27/2022, Additional history exists Wellness Exam Medicare 07/19/2024 07/19/2023, 2019 Diabetic Eye Exam 07/28/2024 07/28/2022, 06/17/2018 Hemoglobin A1c 12/28/2024 06/29/2024, 03/0 11/2023, 11/09/2023, Additional history exists Influenza Vaccine (Season Ended) 2025 05/31/2023, 06/08/2022, 07/14/2021, Additional history exists DTaP/TDaP/Td (3 - Td or Tdap) 05/31/2033 05/31/2023, 01/06/2013 Hepatitis C Screening Completed 12/11/2016 Bone Density Screening Completed 01/30/2017, 2016 Pneumococcal Vaccine 50+ Completed 023, 12/01/2021, 11/15/2015 Hepatitis B Vaccine Aged Out No longe r eligible based on patient's age to complete this topic Meningococcal B Vaccine Aged Out No l onger eligible based on patient's age to complete this topic Goals Goal Patient Goal Type Associated Problems Recent Progress Patient-Stated? Author Blood Pressure < 140/90 Blood Pressure 110/72(04/09 2:44 PM EDT) No Rachel Rogers, CAROLA BMI (Calculated) < 30 General 50.9(2023 2:44 PM EDT) No Rachel Rogers, RMA Eat better, exercise, reach an ideal body weight General No Ni Clinton rn oncology clinical Healing General On track(12/03 9:18 AM EDT) No Bessie Morse, RN Note: Wound volume reduction goals 50% [...] peripheral neuropathy weekly. Refer to PCP and/or Battalion Fire Chief, Vascular Specialist as indicated. Monitor patient compliance with wound care, diabetes management and proper offloading. Patients abdominal discomfort will improve or resolve by next follow up call from RN CC. General Not on track(03/09 11:41 AM EDT) Joselyn Welch RN Stay Tobacco Free Lifestyle On track(02/07 10:23 AM EDT) Wendy Moon LPN HEMOGLOBIN A1C < 7.0 Result Component 5.6( 024 3:04 PM EST) No Rachel Rogers RMA Medical Devices Implanted Type Area Tobacco Packing Machine Operator Device Identifier Shelf Expiration Date Model / Serial / Lot Mesh Srg Ventralight St Echo 2 [id number] Ellipse 6x8in - [id number] Implanted:Qty: 1 on 04/18/2020 by Regan Butts MD at [facility] N/A: Abdomen CR BARD:MEDICAL [id number] 11/05/2020 [id number] / / [id number] Procedures Procedure Name Priority Date/Time Associated Diagnosis Comments HEMOGLOBIN A1C Routine 11/09/2023 3:04 PM EST [...] Recently Relevant to Health Maintenance Results * HEMOGLOBIN A1C (11/09/2023 3:04 PM EST) Hgb A1C 5.6 4.2 - 5.6 % 11/09/2023 8:22 PM EST PREFERRED [employer] Est. Avg Glucose 114 mg/dL 11/09/2023 8:22 PM EST PREFERRED [employer] Blood VENOUS BLOOD / Unknown Venipuncture / Unknown 11/09/2023 3:04 PM EST 11/09/2023 3:04 PM EST Narrative PREFERRED [facility] - 11/09/2023 8:22 PM EST REFERENCE RANGE: Normal: 4.0-5.6% Pre-diabetes: 5.7-6.4% Provisional diagnosis of diabetes: >6.4% Hgb F>10% and anything which shortens red cell survival, such as hemolytic anemia, or unstable hemoglobin variants such as HbSS, HbSC, or HbCC, will lower the HbA1c value associated with a given level of glycemic control. us Cristiane Shirley MD CHEMISTRY ORDERABLES Final Res ult [employer] [address] [facility] , [place] [address] * (ABNORMAL) LIPID PANEL REFLEX (05/31/2023 9:56 AM EDT) Cholesterol 176 <200 mg/dL 05/31/2023 2:48 PM EDT PREFERRED [employer] Comment: < 200 Desirable 200 - 239 Borderline High >= 240 High Triglyceride 130 <150 mg/dL 05/31/2023 2:48 PM EDT [employer] Comment: < 150 Normal 150 - 199 Borderline High 200 - 499 High >= 500 Very High HDL 46 >=40 mg/dL 05/31/2023 2:48 PM EDT [employer] Comment: > 60 Optimal 40 - 60 Acceptable < 40 Low LDL Calculated 107(H) <100 mg/dL 05/31/2023 2:48 PM EDT [employer] Non-HDL-C Calculated 130(H) <=129 mg/dL 05/31/2023 2:48 PM EDT [employer] Comment: <130 Desirable 130-159 Above Desirable 160-189 Borderline High 190-219 High >= 220 Very High Fasting Specimen? Unknown None 023 2:48 PM EDT [facility] Blood VENOUS BLOOD / Unknown Venipuncture / Unknown 05/31/2023 9:56 AM EDT 05/31/2023 9:56 AM EDT Cristiane Shirley MD CHEMISTRY ORDERABLES Final Res ult Performing Organization Address City/[facility]/ZIP Co de Phone Number [facility] [employer] [address] [facility], [place] [address] [facility] [address] [place] [address] * POCT URINE MICROALBUMIN (01/10/2023 11:22 AM EDT) Microalb, Ur 10 mg/L 01/10/2023 11:25 AM EDT [facility] Creatinine Urine 100 mg/dL 01/10/2023 11:25 AM EDT [facility] [place] Microalb/Manager Molecular. Ratio <30 <30 mg/g 01/10/2023 11:25 AM EDT [facility] [place] [place] [facility] Urine URINE SPECIMEN COLLECTION / Unknown 01/10/2023 11:22 AM EDT 01/10/2023 11:25 AM EDT Cristiane Shirley MD POINT OF CARE TEST ORDERABLES Final Result [address] [id number] * DIABETES EYE EXAM (06/17/2018) Left Diabetic Retinopathy Not Present Present/Not Present SEP OFFICE Right Diabetic Retinopathy Not Present Present/Not Present SEP OFFICE 06/17/2018 [facility] Provider HEALTH MAINTENANCE Final Res ult SEP OFFICE * DX BONE DENSITY AXIAL SKELETON (01/30/2017 10:35 AM EDT) Anatomical Region Laterality Modality Dexa Scan 01/30/2017 Narrative 02/01/2017 3:52 PM EDT Indication: The patient is presently being monitored while on treatment and requires a bone density assessment. Study was performed on [employer]. Bone Density: Region BMD T-score Z-score AP [...] Guerin PA-C, JOSSY on 01/30/2017 3:24:00 PM. Yenny Schwab MD IMG DEXA ORDERABLES Final Result * HEPATITIS C ANTIBODY IGM + IGG (12/11/2016 11:46 AM EDT) Hep C Ab Negative Negative [facility] Blood specimen (specimen) 12/11/2016 11:46 AM EDT 12/11/2016 3:25 PM EDT Yenny Schwab MD IMMUNOLOGY ORDERABLES Fin al Result Performing Organization Address [facility] de Phone Number [facility] [address] [place] [address] * GMED EGD-COLONOSCOPY (02/17/2013 7:15 AM EDT) 02/17/2013 7:15 AM EDT Impressions [facility] - 02/17/2013 10:33 AM EDT Plan: Await pathology results Screening Colonoscopy in 10 years. Follow-up office visit in 2 months Continue current medication for acid suppression/ dose 30 minutes before a meal This section is an excerpt of the full report, which can be found by clicking the hyperlink. Garett Holt MD GI PROCEDURE ORDERABLES Fin al Result Performing Organization Address [facility] Phone Number [facility] [address] [place] [address] * MM MAMMO DIGITAL SCREENING W CAD BILAT (07/08/2012 4:38 PM EDT) Anatomical Region Laterality Modality Breast Bilateral Mammography 07/10/2012 7:44 AM EDT Impressions 07/10/2012 8:22 AM EDT : No radiographic evidence of malignancy ([id number]) ~ RECOMMENDATION: Routine screening mammogram in 1 [...] ~ IMPRESSION: No radiographic evidence of malignancy ([id number]) ~ RECOMMENDATION: Routine screening mammogram in 1 [...] Most Recently Relevant to Health Maintenance Insurance [facility] MEDICARE MR [facility] MEDICARE MR Advance Directives For more information, please contact: [phone] * Full Code (Latest Code Status on File) Date Activated Date Inactivated Comments 04/16/2020 11:27 PM 04/29/2020 12:51 AM * Full Code Date Activated Date Inactivated Comments 03/13/2017 5:23 PM 03/14/2017 6:01 PM Care Teams Research Professional Relationship Specialty Start Date End Date Abel Pretty MD [address] [place] [address] PCP - General Family Medicine 12/30/23 Garett Holt MD Internal Medicine-Gastroenterology 12/22/12 Ruiz Stokes MD [address] [place] [address] Internal Medicine-Cardiovascular Disease 07/25/14 Yenny Schwab MD [address] [facility] [address] [place] [address] Internal Medicine-Rheumatology 12/11/16
--- OUTSIDE RECORDS SUMMARY | 2025-02-15 15:28 | XMS_ITS | Encounter Summary ---
Author Organization [place] [address] Care Team Providers Care Product Marketing Director Name Role Phone Garett Holt MD Unavailable [phone] Kate Bai DO Primary Care Provider Unavailable Ruiz Stokes MD Unavailable [phone] Annalise Oneill MD Primary Care Provider [phone] Cristiane Shirley MD Primary Care Provider [phone] Annalise Oneill MD Primary Care Provider [phone] Yenny Schwab MD Unavailable [phone] Cristiane Shirley MD Primary Care Provider [phone] Joselyn Chance RN Unavailable Unavail able Nuria Gonzalez BA, COS Unavailable Unavailable Nuria Gonzalez BA, COS Unavailable Unavailable Angelina Thomas BS, COS Unavailable Unavail able Abel Pretty MD Primary Care Provider Encounter Details Date Type Department Care Team (Late st Contact Info) Description 08/09/2014 Orders Only SEP Gastro [facility] [address] [facility] [address] [place] [address] [place] [address] [place] [address] Social History Tobacco Use Types Packs/Day Years [...] Procedure Name Priority Date/Time Associated Diagnosis Comments GMED EGD Routine 08/09/2014 9:30 AM EST documented in this encounter Results * ED EGD (08/09/2014 9:30 AM EST) 08/09/2014 9:[address] [facility] - 08/09/2014 10:08 AM EST [...] Rad Pang MD GI PROCEDURE ORDERABLES Mercedes l Result Performing Organization Address City/State/[facility] Co de Phone Number [facility] [address] [place] [address] documented in this encounter Visit Diagnoses Not on filedocumented in this encounter Additional Health Concerns Infection Onset Date Last Indicated Resolved Time R/O COVID-19 05/18/2020 05/18/2020 05/18/2020 3:46 PM EDT COVID-19 08/30/2023 08/30/2023 09/19/2023 10:1 2 PM EST documented as of this encounter Care Teams Product Marketing Director Relationship Specialty Start Date End Date Kate Bai DO PCP - General Internal Medicine 05/31/14 10/02/14 Annalise Oneill MD [address] [place] [address] PCP - General Family Medicine 10/03/14 12/27/14 Cristiane Shirley MD [address] [place], [place] [id number] PCP - General Family Medicine 12/28/14 11/18/16 Annalise Oneill MD [address] [place] [address] PCP - General Family Medicine 11/19/16 08/19/18 Cristiane Shirley MD [address] [facility], [place] [id number] PCP - General Family Medicine 08/20/18 12/29/23 Abel Pretty MD [address] [facility], [place] [id number] PCP - General Family Medicine 12/30/23 Garett Holt MD Internal Medicine-Gastroentero logy 12/22/12 Ruiz Stokes MD [address] [place] [address] Internal Medicine-Cardiovascul ar Disease 07/25/14 Yenny Schwab MD [address] [id number] Internal Medicine-Rheumatology 12/11/16 Joselyn Chance, RN Cleaner Operator Registered Nurse 05/05/20 03/08/21 Nuria Gonzalez BA, COS Case Nursing Information Systems Coordinator 06/15/20 06/15/20 Nuria Gonzalez BA, COS Case Nursing Information Systems Coordinator 02/08/21 02/27/21 Angelina Thomas BS, COS Case Nursing Information Systems Coordinator 02/06/23 02/26/23 documented as of this encounter
--- NOTE | 2025-02-15 15:29 | ED_ITS ---
<Statement entered by Gera Alex MD - 02/16/25 02:01> Patient's EKG was independently reviewed by me, and interpreted to be significant for NSR with no acute ST-segment changes. I was consulted by the NANDO, and we discussed the complexity of problems being addressed. I approved the treatment and management plan for this patient's care in the emergency department, thus performing a substantial portion of the medical decision making. Gera Alex MD Discharge Plan Disposition Patient Disposition: Home, Self-Care Condition: Good Prescriptions Prescriptions: No Action furosemide 40 mg tablet 40 mg PO DAILY Patient Comments: TAKE 1 TABLET BY MOUTH ONCE DAILY, MAY TAKE AN EXTRA IF NEEDED metformin 500 mg tablet 500 mg PO DAILY Patient Comments: TAKE 1 TABLET BY MOUTH ONCE DAILY WITH BREAKFAST atorvastatin 20 mg tablet 20 mg PO DAILY Patient Comments: TAKE 1 TABLET BY MOUTH ONCE DAILY trospium 20 mg tablet 20 mg PO BID Patient Comments: TAKE 1 TABLET BY MOUTH TWICE DAILY docusate sodium 100 mg Capsule 100 mg PO DAILY Qty: 30 0RF Jardiance 10 mg Tablet 10 mg PO DAILY Qty: 30 0RF folic acid 1 mg Tablet 1 mg PO DAILY Qty: 30 0RF spironolactone 25 mg Tablet 25 mg PO DAILY Qty: 30 0RF pantoprazole 40 mg Tablet,Delayed Release (Dr/Ec) 40 mg PO DAILY Qty: 30 0RF lisinopril 10 mg Tablet 10 mg PO DAILY Qty: 30 0RF levofloxacin 750 mg tablet 750 mg PO DAILY 5 Days Qty: 5 0RF Referrals Follow up/Referrals: Provider,Referral, [Referring, Medical] - See instructions Activity Restrictions/Add. Instructions Additional Instructions/Restrictions: Please follow-up with your family doctor in the upcoming days/weeks, continue take all medication as prescribed, utilize anti-inflammatory medications as needed for arthritic shoulder pain. Will call with results of x-ray when full radiology report is released. Clinical Impressions Clinical Impression: Encounter for general medical examination, Pain in right shoulder, Generalized weakness Instructions Patient Instructions: DI for Muscle Weakness Print Language Print Language: Iranian Discharge ED Provider: Gera Alex Adult HPI General Chief complaint: Nausea/Vomiting/Diarrhea Stated complaint: weakness Time Seen by Provider: 02/15/25 15:18 Mode of Arrival: EMS Source of Information: EMS Description of Symptoms (Recalled from ER Triage Doc. by RN): patient states she has been weak nausea and vomitting for 2 days. right arm pain from elbow to shoulder. History of Present Illness HPI narrative: 69-year-old female presents the emergency department via EMS as a medical clearance for senior living facility, patient is coming from home, has a bed at [facility] senior living facility, patient states that she is just here for blood work to go to the senior living . When asking the patient if she has any acute signs or symptoms, she states that she has some ongoing right arm/shoulder pain, as well as generalized weakness for quite some time, no trauma or injury per history, that has been ongoing for the last 1 to 2 weeks, she denies any fever chills cough congestion chest pain shortness of breath, no abdominal pain, admits to nausea at times, and some decreased appetite for the last week or so, but no diarrhea, does notice some constipation at times, no hematuria, melena hematochezia hemoptysis or hematemesis, denies any urinary type symptomatology, patient is a former smoker, admits to former alcohol use, denies any drug use, other past medical history is consistent with hypertension, T2DM, obesity, HFpEF, hyperlipidemia, GERD. Initial triage vitals are unremarkable. Onset (ago): week(s) Related Data Home Medications ?Medication ?Instructions ?Recorded ?Confirmed atorvastatin 20 mg tablet 20 mg PO DAILY Cholesterol 1 06/20/23 furosemide 40 mg tablet 40 mg PO DAILY Fluid 3 06/20/23 metformin 500 mg tablet 500 mg PO DAILY Diabetes 06/20/23 trospium 20 mg tablet 20 mg PO BID Overactive Blad garfield 06/20/23 06/20/23 Previous Rx's ?Medication ?Instructions ?Recorded docusate sodium 100 mg capsule 100 mg PO DAILY #30 cap s 06/25/23 empagliflozin 10 mg tablet 10 mg PO DAILY #30 tabs (Jardiance) folic acid 1 mg tablet 1 mg PO DAILY #30 tabs 06/25 lisinopril 10 mg tablet 10 mg PO DAILY #30 tabs 06/08 04/30 pantoprazole 40 mg tablet,delayed 40 mg PO DAILY #30 t abs 06/25/23 release spironolactone 25 mg tablet 25 mg PO DAILY #30 tabs levofloxacin 750 mg tablet 750 mg PO DAILY UTI 5 days #5 tabs 01/31/25 Allergies Allergy/AdvReac Type Severity Reaction Status Date / Time naproxen (From NAPROSYN) Allergy Intermediate I-RASH Verified 01/31/25 12:49 cefaclor (From CECLOR) Allergy Unknown Rash Verified 01/31/25 12:49 ampicillin Allergy Rash Verified 01/31/25 12:49 egg Allergy Rash Verified 01/31/25 12:49 [facility] Disclaimer: The information contained in this section may have been updated after the patient was seen, as this information can be updated by other users. Medical History (Updated 02/15/25 @ 16:56 by STEF Kwok) (HFpEF) heart failure with preserved ejection fraction Diabetes mellitus, type 2 Cervical cancer History of gastroesophageal reflux (GERD) Hyperlipidemia Hypertension Degenerative joint disease of both hips Surgical History (Updated 06/20/23 @ 12:52 by Brynn Tapia RN) History of cholecystectomy Family History (Updated 06/20/23 @ 12:52 by Brynn Tapia RN) Other No significant family history Social History (Updated 06/20/23 @ 12:53 by Brynn Tapia RN) Smoking Status: Never smoker alcohol intake: never current occupational status: other Travel in the last 8 weeks?: None Have you lived/traveled outside US in past 30 days?: No Contact w/someone who lives/traveled outside US past 30 days?: No Exposure to someone with infectious disease in past 14 days?: No Do you have a fever (greater than 100.4 F or 38 C)?: No Have you tested positive for COVID-19?: No Exposed to someone with COVID-19 in past 14 days?: No Do you have a sore throat?: No Do you have a cough?: No Do you have any weakness?: No Do you have any diarrhea?: No Are you experiencing any unusual bleeding?: No Do you have any muscle aches/pain?: No Do you have any abdominal pain?: No Are you experiencing loss of taste or smell?: No Other Medical History Have you received the Flu Vaccine for this season: No Have you received the Pneumonia Vaccine: No ROS Obtained: Yes All systems reviewed & no additional complaints except as documented Physical Exam General General appearance: alert and in no apparent distress Head Head exam: atraumatic and normocephalic Eye Eye exam: Present PERRL and EOMI ENT ENT exam: Present mucous membranes moist Neck Neck exam: Present normal inspection Chest Chest inspection: Present normal inspection and symmetric chest wall rise Respiratory Respiratory exam: Present normal lung sounds bilaterally; Absent respiratory distress, wheezes, stridor or accessory muscle use Cardiovascular Cardiovascular exam: Present regular rate and normal rhythm Abdominal Exam Abdominal exam: Present soft; Absent tenderness, guarding, rebound or rigidity Extremities Exam Extremities exam: Present normal inspection, full ROM, tenderness and other (Mild pain to palpation to the right shoulder/right humeral region, no obvious open fracture, no obvious deformity or traumatic malalignment, otherwise neurovascularly intact.) Neurological Exam Neurological exam: Present alert and oriented X3 Psychiatric Psychiatric exam: Present normal affect Skin Skin exam: Present warm and dry Medical Decision Making Medical Records Medical records reviewed: Yes I reviewed the patient's medical records. Screening: Per USPSTF and CDC recommendations, given the prevalence of disease in our region, it is our hospital?s policy to screen for HIV and viral Hepatitis for all patients aged 18 and over and those with ongoing risk factors. Jorge Inquiry Pt receiving controlled substance: No Jorge was queried for this patient: No Vital Signs: 02/15/25 15:13 Temperature 98.5 F Temperature Source Oral Pulse Rate [Right Radial] 76 Respiratory Rate 15 Blood Pressure [Right Arm] 129/76 Blood Pressure Mean [Right Arm] 93 Blood Pressure Source [Right Arm] Automatic Cuff Blood Pressure Position [Right Arm] Supine 02 Sat by Pulse Oximetry 97 Oxygen Delivery Method Room Air Lab Data Lab results reviewed: Yes I reviewed the patient's lab results. Lab Results 02/15/25 15:18: WBC 10.3, RBC 4.47, Hgb 12.2, Hct 39.7, MCV 88.8, MCH 27.3, MCHC 30.7 L, RDW 15.2, Plt Count 261, MPV 9.7, Neut % (Auto) 74.5, Lymph % (Auto) 13.2, Dolores % (Auto) 9.6 H, Eos % (Auto) 1.7, Baso % (Auto) 0.6, Neut # (Auto) 7.7, Lymph # (Auto) 1.4, Dolores # (Auto) 1.0, Eos # (Auto) 0.2, Baso # (Auto) 0.1, Sodium 137, Potassium 3.9, Chloride 106, Carbon Dioxide 29, Anion Gap 5.9, BUN 11, Creatinine 0.70, Estimated Creat Clear 43, Estimated GFR 83, Est GFR ( Amer) 101, Glucose 116 H, Calcium 9.6, Total Bilirubin 0.3, AST 29, ALT 22, Alkaline Phosphatase 79, Total Protein 6.8, Albumin 3.7, Globulin 3.1, Albumin/Globulin Ratio 1.2 02/15/25 15:45: Urine Color Yellow, Urine Appearance Clear, Urine pH 6.0, Ur Specific [place] 1.025, Urine Protein Trace, Urine Glucose (UA) Negative, Urine Ketones Negative, Urine Blood Trace-i, Urine Nitrate Negative, Urine Bilirubin Negative, Urine Urobilinogen 0.2, Ur Leukocyte Esterase Negative 02/15/25 15:18 02/15/25 15:18 Orders (Tests/Meds): ORDERS Category Date Time Status XR humerus RT Stat Exams 02/15/25 15:27 Taken XR shoulder RT min 2V Stat Exams 02/15/25 15:27 Taken Complete Blood Count Auto Diff Stat Lab 02/15/25 15:18 Completed Comprehensive Metabolic Panel Stat Lab 02/15/25 15:18 Completed Urinalysis and Microscopic Stat Lab 02/15/25 15:45 Results Medical Decision Narrative: 69-year-old female presents to the emergency department as a medical clearance for senior living facility, complains of generalized weakness, and loss of appetite at times, insert remote intermittent right shoulder pain, differential diagnose include not limited to cardiac arrhythmia, electrolyte disturbance, acute UTI, osteoarthritis of right shoulder, failure to thrive, acute kidney injury, hypovolemia among others. I discussed patient's case with attending physician Will obtain basic laboratory studies, x-ray of the right humerus x-ray of the right shoulder, urinalysis and EKG. CBC is unremarkable CMP is notable for minimal hyperglycemia at 116 otherwise unremarkable. Urinalysis is trace hematuria, negative nitrites, negative leukocyte esterase. I along with the attending physician reviewed and independently interpreted the patient's right humerus x-ray, right shoulder x-ray, there is no acute bony abnormality, no acute fracture or traumatic malalignment or dislocation, discussed that full radiology report is not yet available for interpretation to patient at the bedside, patient would like to be discharged back to senior living, laboratory studies unremarkable, urinalysis unremarkable, will give the patient 500 mg Tylenol and 400 mg ibuprofen for pain. Patient is medically cleared to be discharged to senior living facility, generalized weakness seems quite chronic, no focal neurological deficit, patient will follow-up with PCP/senior living provider, the patient was given strict ED return precautions. Patient voiced understanding and in agreement with the current treatment plan/discharge plan. Critical Care Critical Care Time Critical Care Time: No
[2025-02-15 15:30] VITALS: BP 131/67; PULSE 75; RESP 18; O2SAT 97
--- NOTE | 2025-02-15 15:34 | ECG_ITS ---
APPROVED REPORT Exam: Resting ECG HR:73 bpm ECG Measurements Heart Rate 73 AXES MT 191 P 44 QRSd 88 QRS -42 QT 344 T 39 QTc 371 Conclusion SINUS RHYTHM LEFT AXIS DEVIATION [QRS AXIS < -30] MINIMAL VOLTAGE CRITERIA FOR LVH, CONSIDER NORMAL VARIANT [MEETS CRITERIA IN ONE OF: R(aVL), S(V1), R(V5), R(V5/V6)+S(V1)] POSSIBLE ANTERIOR MYOCARDIAL INFARCTION , PROBABLY OLD [30 ms Q WAVE IN V3/V4, OR R < 0.2 mV IN V4] ABNORMAL ECG UNCONFIRMED REPORT Electronically signed by : HERBERTH MAST, 02/17/2025 01:16:36
[2025-02-15 15:35] LABS: Alanine Aminotransferase 22 U/L (12-78); Albumin Level 3.7 g/dl (3.5-5.0); Albumin/Globulin Ratio 1.2 (1.1-1.8); Alkaline Phosphatase 79 U/L (38-126); Anion Gap 5.9 mEq/L (5-15); Aspartate Amino Transferase 29 U/L (14-36); Bilirubin,Total 0.3 mg/dl (0.2-1.3); Blood Urea Nitrogen 11 mg/dl (7-17); Calcium 9.6 mg/dl (8.4-10.2); Carbon Dioxide 29 mmol/L (22.0-30.0); Chloride 106 mmol/L (98-107); Creatinine Clearance Estimated 43 mL/min (50-200); Estimated Glomerular Filt Rate 83 ml/min (>60); GFR (African American) 101 ML/MIN (>60); Globulin 3.1 g/dL (1.3-3.2); Glucose 116 mg/dl (74-100); Potassium 3.9 mmoL/L (3.5-5.1); Sodium 137 mmol/L (136-145); Total Protein,Serum 6.8 g/dl (6.3-8.2)
[2025-02-15 15:50] LABS: Microscopic, Urine URINE MICROSCOPIC (MICROSCOPIC)
[2025-02-15 15:58] LABS: Appearance,Urine CLEAR (Clear); Blood, Urine TRACE-I (Negative); Color,Urine YELLOW (Yellow); Glucose,Urine (UA) Negative (Negative); Ketones,Urine Negative (Negative); Leukocyte Esterase,Urine Negative (Negative); Nitrate,Urine Negative (Negative); Protein,Urine TRACE (Negative); Specific Gravity, Urine 1.025 (1.005-1.030); Urobilinogen,Urine 0.2 EU/dl (0.2)
[2025-02-15 16:04] LABS: Bilirubin,Urine Negative (Negative)
--- NOTE | 2025-02-15 16:27 | PC.NURSE ---
CARE MANAGEMENT AT BEDSIDE
[2025-02-15 16:30] VITALS: BP 129/66; PULSE 78; RESP 18; O2SAT 97
[2025-02-15 16:58] LABS: Bacteria,Urine 3+ /lpf; Mucus,Urine 1+ /lpf
[2025-02-15 17:00] VITALS: BP 131/69; PULSE 79; RESP 18; O2SAT 98
[2025-02-15] MEDS: ACETAMINOPHEN 500MG TAB 500 MG PO (17:10)
--- NOTE | 2025-02-15 17:34 | PC.NURSE ---
REPORT CALLED BRISSA AT [facility]
[2025-02-15 17:51] VITALS: BP 132/68; PULSE 72; RESP 18; TEMP 36.7; O2SAT 97
--- NOTE | 2025-02-16 07:30 | SW/DCPLANNER ---
Spoke with patient and son yesterday related to wanting to go to [facility]. She was planned to go there yesterday, but needed to be checked medically as patient has not been able to see a doctor for over a year. Patient is unable to ambulate and essentially bedbound. She requested information be sent to [facility] and was agreeable to go there. Spoke with Krys, admission coordinator, who stated they needed the ER note and provided the numbers for report, fax number, and pharmacy. Son states he will take patient's belongings to the detention including her medications. They denied any other questions or concerns.
== END 2025-02-15 18:05 | disposition home or self-care (01) ==
PROVIDERS: Physician Assistant; Emergency Provider Emergency Medicine; PCP Family Medicine
DX: M25.511 Pain in right shoulder (principal); R53.1 Weakness; R11.2 Nausea with vomiting, unspecified
CPT/HCPCS: 73030; 73060; 80053; 81001; 85025; 87086; 93005; 99284

== ENCOUNTER 2025-05-07 17:07 | Outpatient (CLI) | payer MEDICARE, SELFPAY ==
--- OUTSIDE RECORDS SUMMARY | 2025-05-07 17:09 | XMS_ITS | Clinical Summary ---
Author Organization [facility] Address [facility] [place] [address] Phone Care Team Providers Care Coat Hanger Shaper Machine Operator Name Role Phone Gera Rowan MD [facility] [phone] Conditions or Problems No information available. Medications No information available. Medications Administered No information available. Allergies, Adverse Reactions, Alerts No information available. Results No information available. Plan of Care No information available. Procedures No information available. Vital Signs No information available. Immunizations No information available. Advance Directives No information available.
--- OUTSIDE RECORDS SUMMARY | 2025-05-07 17:10 | XMS_ITS | Encounter Summary ---
Author Organization [place] [address] Care Team Providers Care Oyster Shipper Name Role Phone Garett Holt MD Unavailable [phone] Kate Bai DO Primary Care Provider Unavailable Ruiz Stokes MD Unavailable [phone] Annalise Oneill MD Primary Care Provider [phone] Cristiane Shirley MD Primary Care Provider [phone] Annalise Oneill MD Primary Care Provider [phone] Yenny Schwab MD Unavailable [phone] Cristiane Shirley MD Primary Care Provider [phone] Joselyn Chance RN Unavailable Unavail able Nuria Gonzalez BA, COS Unavailable Unavailable Nuria Gonzalez BA, COS Unavailable Unavailable Angelina Thomas BS, COS Unavailable Unavail able Abel Pretty MD Primary Care Provider Encounter Details Date Type Department Care Team (Late st Contact Info) Description 08/09/2014 Orders Only SEP Gastro [facility] [address] [facility] [address] [place] [address] [place] [address] [place] [address] Social History Tobacco Use Types Packs/Day Years [...] AM EST) 08/09/2014 9:30 AM EST Impressions [facility] - 08/09/2014 10:08 AM EST Normal [...] ORDERABLES Mercedes l Result Performing Organization Address City/State/[facility] Co de Phone Number [facility] [address] [place] [address] documented in this encounter Visit Diagnoses Not on filedocumented in this encounter Additional Health Concerns Infection Onset Date Last Indicated Resolved Time R/O COVID-19 05/18/2020 05/18/2020 05/18/2020 3:46 PM EDT COVID-19 08/30/2023 08/30/2023 09/19/2023 10:1 2 PM EST documented as of this encounter Care Teams Oyster Shipper Relationship Specialty Start Date End Date Kate Bai DO PCP - General Internal Medicine 05/31/14 10/02/14 Annalise Oneill MD [address] [place] [address] PCP - General Family Medicine 10/03/14 12/27/14 Cristiane Shirley MD [address] [place], [place] [id number] PCP - General Family Medicine 12/28/14 11/18/16 Annalise Oneill MD [address] [place] [address] PCP - General Family Medicine 11/19/16 08/19/18 Cristiane Shirley MD [address] [facility], [place] [id number] PCP - General Family Medicine 08/20/18 12/29/23 Abel Pretty MD [address] [facility], [place] [id number] PCP - General Family Medicine 12/30/23 Garett Holt MD Internal Medicine-Gastroentero logy 12/22/12 Ruiz Stokes MD [address] [facility] [place] [place] [address] Internal Medicine-Cardiovascul ar Disease 07/25/14 Yenny Schwab MD [address] [facility] [address] [place] [address] Internal Medicine-Rheumatology 12/11/16 Joselyn Chance, RN Cultural Historian Registered Nurse 05/05/20 03/08/21 Nuria Gonzalez BA, COS Case Flash Oven Operator 06/15/20 06/15/20 Nuria Gonzalez BA, COS Case Flash Oven Operator 02/08/21 02/27/21 Angelina Thomas BS, COS Case Flash Oven Operator 02/06/23 02/26/23 documented as of this encounter
--- OUTSIDE RECORDS SUMMARY | 2025-05-07 17:10 | XMS_ITS | Clinical Summary ---
Author Organization [facility] Address [address] [place] [address] Care Team Providers Care Stock Plan Administrator Name Role Phone Provider, No Known Primary Care Provider [phone] Allergies Active Allergy Reactions Criticality Noted Date [...] Maintenance Due Date Last Done Comments GERALD 2001 COLON CANCER SCREENING 5 YEA R SIGMOIDOSCOPY [address] COLONOGRAPHY 2001 FIT Testing (1 year) 2001 MAMMOGRAM 07/08/2014 07/08/2012 ANNUAL PHYSICAL 03/06/2017 HEPATITIS C SCREENING 03/06/2017 DXA SCAN 01/30/2019 01/30/2017 COLORECTAL CANCER SCREENING 05/18/2021 FECAL OCCULT BLOOD TEST 05/18/2021 05/18/2020 ZOSTER VACCINE (2 of 2) 01/26/2022 12/01/2021 Pneumococcal Vaccine 50+ (2 of 2 - PCV) 12/01/2022 12/01/2021, 11/15/2015 TDAP/TD VACCINES (2 - Td or Tdap) 01/06/2023 013 COVID-19 Vaccine (3 - 2023-2 5 season) 2024 01/14/2021, 12/17/2020 INFLUENZA VACCINE 06/08/2025 URINE MICROALBUMIN-CREATININ E RATIO (uACR) Discontinued 05/25/2020 HEMOGLOBIN A1C Discontinued 02/24/2021, 03/0 11/2019, 08/20/2018, Additional history exists Care Teams Stock Plan Administrator Relationship Specialty Start Date End Date Provider, [place] [address] PCP - General 01/25/16
--- OUTSIDE RECORDS SUMMARY | 2025-05-07 17:10 | XMS_ITS | Clinical Summary ---
Author Organization [facility] Address [address] [place] [address] Phone Care Team Providers Care Power Transformer Inspector Name Role Phone Gaertt Holt MD Unavailable [phone] Ruiz Stokes MD Unavailable [phone] Yenny Schwab MD Unavailable [phone] Abel Pretty MD Primary Care Provider Allergies [...] 1 box 6 1 Active Nebulizer Accessories [facility] KitIndications:A cute bronchitis, unspecified [...] eyes. 5 mL 2 Active Blood-Glucose Meter [facility] KitIndications:T ype 2 diabetes mellitus without complication, without long-term current use of insulin ([facility]) Per formulary. Dx. E11.9 1 Kit 2 Active Blood Sugar Diagnostic [facility] StripIndications :Type 2 diabetes mellitus without complication, without long-term current use of insulin ([facility]) 1 Strip by [facility].(Non-Drug; Combo Route) route 2 times daily. Per formulary. Dx: E11.9 100 Each 2 Active Lancets [facility] MiscIndications: Type 2 diabetes mellitus without complication, without long-term current use of insulin ([facility]) 1 Each by [facility].(Non-Drug; Combo Route) route 2 times daily. Per formulary. Dx: E11.9 100 Each 2 Active fluticasone propionate (FLONASE) 50 mcg/actuation [place], SuspensionIndica tions:ETD (Eustachian tube dysfunction), right Use 1 spray(s) in each nostril once daily 16 g 3 Active ONETOUCH DELICA PLUS LANCET 33 gauge [facility] USE TO CHECK GLUCOSE TWICE [...] 5 3 Active Blood-Glucose Meter,Continuous (DEXCOM G7 PAPER DELIVERER) [facility] MiscIndications: Type 2 diabetes mellitus without complication, without long-term current use of insulin ([facility]),Severe diabetic hypoglycemia (HCC) 1 Each by [facility].(Non-Drug; Combo Route) route as needed. 1 Each 11 3 Active Blood-Glucose Sensor (DEXCOM G7 SENSOR) [facility] DeviceIndication s:Type 2 diabetes mellitus without complication, without long-term current use of insulin ([facility]),Severe diabetic hypoglycemia (HCC) 1 Each by [facility].(Non-Drug; Combo Route) [...] migh t be different from the original. [facility] audit completed by Brynn Wu RN on 09/23/2023. Problem Noted Date Diagnosed Date Chronic bronchitis 07/16/2023 Epigastric pain 09/10/2020 Periumbilical abdominal pain 07/18/2020 Overview (07/18/2020): Added automatically from request for surgery [id number] Atherosclerosis of aorta 03/18/2019 PMR (polymyalgia rheumatica) 03/18/2019 Venous stasis dermatitis of left lower extremity 11/19/2018 Obesity, Class III, BMI 40-49.9 (morbid obesity) 03/24/2017 Type 2 diabetes mellitus without complication History of endometrial cancer 11/15/2015 Overview (11/15/2015): Had endometrial cancer. She had complete hysterectomy 08/2015. She sees dr Bre Selby at [facility] HAMIDA (obstructive sleep apnea) 12/28/2014 Ventral [...] pain 01/01/2014 07/09/2016 Acute coronary syndrome 01/01/2014 1109/2015 Chest discomfort 03/15/2013 07/09/2016 Leg pain, right 03/12/2013 04/17/2020 SOB (shortness of breath) 03/12/2013 Systolic murmur 03/12/2013 04/17/2020 Dysphagia 02/17/2013 04/17/2020 Encounter for screening colonoscopy 02/17/2013 04/17/2020 Esophageal reflux 04/17/2020 Immunizations Immunization Administration Dates Next Due Influenza [...] Garett Holt MD; Location: [facility]; Service: COLONOSCOPY 02/17/2013 N/A N/A Surgeon: Garett Holt MD; Location: [facility]; Service: CHOLECYSTECTOMY 09/08/1989 - 09/07/1990 CARDIAC CATHETERIZATION 04/08/2015 - 05/08/2015 DENTAL SURGERY upper and lower teeth removed ARTERY BIOPSY 01/06/2017 Right RIGHT TEMPORAL ARTERY BIOPSY ; Surgeon: Christa Chavez MD; Location: [facility] MAIN OR; Service: General VENTRAL HERNIA REPAIR 04/18/2020 N/A DAVINCI ROBOTIC VENTRAL HERNIA REPAIR WITH MESH ; Surgeon: Regan Butts MD; Location: [facility] MAIN OR; Service: General Medical devices from this surgery are in the Medical Devices section. UPPER GASTROINTESTINAL ENDOSCOPY 07/26/2020 N/A ESOPHAGOGASTRODUODENOS COPY with biopsy; Surgeon: Jomar Kim MD; Location: [facility] ENDOSCOPY; Service: Endoscopy Medical History Medical History [...] Date Recorded PHQ-2 Total Score 0 01/03/2024 [facility] [...] Colonography 2001 RSV or 60+ (1 - Risk 60-74 years 1-dose series) 2016 Breast Cancer Screening 11/14/2017 11/15/19 16 (Declined), 07/08/2012, 12/18/2006 Zoster (2 of 2) 01/26/2022 12/01/2021 Colon Cancer Screening 02/17/2023 Colonoscopy 02/17/2023 02/17/2013 Kidney Health: uACR 01/11/2024 01/10/2023, 4 COVID-19 Vaccine ( season) 2024 01/14/2021, 12/17/2020 Lipids 05/31/2024 05/31/2023, 05/10, 07/27/2022, Additional history exists Wellness Exam Medicare 07/19/2024 07/19/2023, 2019 Diabetic Eye Exam 07/28/2024 07/28/2022, 06/17/2018 Hemoglobin A1c 12/28/2024 06/29/2024, 03/0 11/2023, 11/09/2023, Additional history exists Kidney Health: eGFR 03/27/2025 03/27/2024, 12/12/2023, 11/09/2023, Additional history exists Influenza Vaccine (#1) 2025 3, 06/08/2022, 07/14/2021, Additional history exists DTaP/TDaP/Td (3 [...] peripheral neuropathy weekly. Refer to PCP and/or Healthcare Management Consultant, Vascular Specialist as indicated. Monitor patient compliance with wound care, diabetes management and proper offloading. Patients abdominal discomfort will improve or resolve by next follow up call from RN CC. General Not on track(07/02 /2021 11:41 AM EDT) No Joselyn Chance RN Stay Tobacco Free Lifestyle On track(02/07 10:23 AM EDT) No Wendy Espinoza LPN HEMOGLOBIN A1C < 7.0 Result Component 5.6( 024 3:04 PM EST) No Rachel Rogers RMA Medical Devices Implanted Type Area Restaurant Greeter Device Identifier Shelf Expiration Date Model / Serial / Lot Mesh Srg Ventralight St Echo 2 [id number] Ellipse 6x8in - [id number] Implanted:Qty: 1 on 04/18/2020 by Regan Butts MD at [facility] N/A: Abdomen CR BARD:MEDICAL [id number] 11/05/2020 [id number] / / [id number] Procedures Procedure Name Priority Date/Time Associated Diagnosis Comments BASIC METABOLIC PANEL STAT 03/27/2024 10:24 PM EDT HEMOGLOBIN A1C Routine 11/09/2023 3:04 PM EST [...] Routine 12/11/2016 11:46 AM EDT Joint stiffness MICROALBUMIN/CREATI NINE RATIO URINE Routine 05/31/2014 11:42 AM EDT DM type 2 (diabetes mellitus, type 2) (HCC) GMED EGD-COLONOSCOPY Routine 02/17/2013 7:15 AM EDT MM MAMMO DIGITAL SCREENING W CAD BILAT Routine 07/08/2012 4:38 PM EDT Other screening mammogram from Last 3 Months or Most Recently Relevant to Health Maintenance Results * (ABNORMAL) BASIC METABOLIC PANEL (03/27/2024 10:24 PM EDT) Sodium 138 136 - 145 mmol/L 03/27/2024 10:48 PM EDT [facility] Potassium 3.4(L) 3.5 - 5.0 mmol/L 03/27/2024 10:48 PM EDT [facility] Chloride 97(L) 98 - 107 mmol/L 03/27/2024 10:48 PM EDT [facility] Total CO2 28 22 - 29 mmol/L 03/27/2024 10:48 PM EDT [facility] Anion Gap 13 7 - 16 mmol/L 03/27/2024 10:48 PM EDT [facility] Calcium 10.3 8.8 - 10.4 mg/dL 03/27/2024 10:48 PM EDT [facility] Glucose Lvl 125(H) 70 - 99 mg/dL 03/27/2024 10:48 PM EDT [facility] BUN 24(H) 8 - 23 mg/dL 03/27/2024 10:48 PM EDT [facility] Creatinine 0.91 0.51 - 1.30 mg/dL 03/27/2024 10:48 PM EDT [facility] eGFR (CKD-EPIcr 2020) 69 >=60 mL/min/1.7 3 m2 03/27/2024 10:48 PM T [facility] Comment:Estimated GFR was ca lculated using the CKD-EPIcr (2020) equation refit without race. The equation is recommended by the National Kidney Foundation - [place] [employer] of Nephrology Task Force. Blood VENOUS BLOOD / Unknown Venipuncture / Unknown 03/27/2024 10:24 PM EDT 03/27/2024 10:28 PM EDT us Brianda Laird MD CHEMISTRY ORDERABLES Final Result [facility] [address] [place] [address] * HEMOGLOBIN A1C (11/09/2023 3:04 PM EST) Hgb A1C 5.6 4.2 - 5.6 % 11/09/2023 8:22 PM EST [facility] Est. Avg Glucose 114 mg/dL 11/09/2023 8:22 PM EST [facility] Blood VENOUS BLOOD / Unknown Venipuncture / Unknown 11/09/2023 3:04 PM EST 11/09/2023 3:04 PM EST Narrative [facility] - 11/09/2023 8:22 PM EST REFERENCE RANGE: Normal: 4.0-5.6% Pre-diabetes: 5.7-6.4% Provisional diagnosis of diabetes: >6.4% Hgb F>10% and anything which shortens red cell survival, such as hemolytic anemia, or unstable hemoglobin variants such as HbSS, HbSC, or HbCC, will lower the HbA1c value associated with a given level of glycemic control. us Cristiane Shirley MD CHEMISTRY ORDERABLES Final Res ult [facility] [address] [facility] [facility] , [place] [address] * (ABNORMAL) LIPID PANEL REFLEX (05/31/2023 9:56 AM EDT) Pathologist [facility] Cholesterol 176 <200 mg/dL 05/31/2023 2:48 PM EDT [facility] Comment: < 200 Desirable 200 - 239 Borderline High >= 240 High Triglyceride 130 <150 mg/dL 05/31/2023 2:48 PM EDT [facility] Comment: < 150 Normal 150 - 199 Borderline High 200 - 499 High >= 500 Very High HDL 46 >=40 mg/dL 05/31/2023 2:48 PM EDT [facility] Comment: > 60 Optimal 40 - 60 Acceptable < 40 Low LDL Calculated 107(H) <100 mg/dL 05/31/2023 2:48 PM EDT [facility] [place] [facility] Non-HDL-C Calculated 130(H) <=129 mg/dL 05/31/2023 2:48 PM EDT [facility] Comment: <130 Desirable 130-159 Above Desirable 160-189 Borderline High 190-219 High >= 220 Very High Fasting Specimen? Unknown None 023 2:48 PM EDT [facility] Blood VENOUS BLOOD / Unknown Venipuncture / Unknown 05/31/2023 9:56 AM EDT 05/31/2023 9:56 AM EDT Cristiane Shirley MD CHEMISTRY ORDERABLES Final Res ult [facility]ED [facility] [employer] [place] [address] [place] [address] [facility] [address] [place] [id number] * DIABETES EYE EXAM (06/17/2018) Left Diabetic Retinopathy Not Present Present/Not Present SEP OFFICE Right Diabetic Retinopathy Not Present Present/Not Present SEP OFFICE 06/17/2018 [facility] Provider HEALTH MAINTENANCE Final Res ult Performing Organization Address [facility] Co de Phone Number SEP OFFICE * DX BONE DENSITY AXIAL SKELETON (01/30/2017 10:35 AM EDT) Anatomical Region Laterality Modality Dexa Scan 01/30/2017 Narrative 02/01/2017 3:52 PM EDT Indication: The patient is presently being monitored while on treatment and requires a bone density assessment. Study was performed on [employer] 5. Bone Density: Region BMD T-score Z-score [...] IGM + IGG (12/11/2016 11:46 AM EDT) Pathologist [facility] Hep C Ab Negative Negative [facility] Blood specimen (specimen) 12/11/2016 11:46 AM EDT 12/11/2016 3:25 PM EDT Yenny Schwab MD IMMUNOLOGY ORDERABLES Fin al Result [facility] [address] [place] [address] * MICROALBUMIN/CREATININE RATIO URINE (05/31/2014 11:42 AM EDT) Urine Microalb 13.4 mg/L [facility] Urine Creatinine 86.8 mg/dL [facility] Ur Microalb/Creat 15 0 - 20 mg/gm [facility] Urine specimen (specimen) STRUCTURE OF URINARY TRACT PROPER / Unknown 05/31/2014 11:42 AM EDT 05/31/2014 2:49 PM EDT Kate Bai DO URINE ORDERABLES Final Result Performing Organization Address [facility] Co de Phone Number [facility] [address] [place] [address] * GMED EGD-COLONOSCOPY (02/17/2013 7:15 AM EDT) 02/17/2013 7:15 AM EDT Impressions [facility] - 02/17/2013 10:33 AM EDT Plan: Await pathology results Screening Colonoscopy in 10 years. Follow-up office visit in 2 months Continue current medication for acid suppression/ dose 30 minutes before a meal This section is an excerpt of the full report, which can be found by clicking the hyperlink. Garett Holt MD GI PROCEDURE ORDERABLES Fin al Result Performing Organization Address [facility] de Phone Number [facility] [address] [place] [address] * MM MAMMO DIGITAL SCREENING W CAD BILAT (07/08/2012 4:38 PM EDT) Anatomical Region Laterality Modality Breast Bilateral Mammography 07/10/2012 7:44 AM EDT Impressions 07/10/2012 8:22 AM EDT : No radiographic evidence of malignancy ([id number]) ~ RECOMMENDATION: Routine screening mammogram in 1 [...] ~ IMPRESSION: No radiographic evidence of malignancy ([id number]) ~ RECOMMENDATION: Routine screening mammogram in 1 [...] Most Recently Relevant to Health Maintenance Insurance [facility] MEDICARE MR [employer] HMO MEDICARE MR Advance Directives For more information, please contact: [phone] * Full Code (Latest Code Status on File) Date Activated Date Inactivated Comments 04/16/2020 11:27 PM 04/29/2020 12:51 AM * Full Code Date Activated Date Inactivated Comments 03/13/2017 5:23 PM 03/14/2017 6:01 PM Care Teams Power Transformer Inspector Relationship Specialty Start Date End Date Abel Pretty MD [address] [place] [address] PCP - General Family Medicine 12/30/23 Garett Holt MD Internal Medicine-Gastroenterology 12/22/12 Ruiz Stokes MD [address] [place], [place] [id number] Internal Medicine-Cardiovascular Disease 07/25/14 Yenny Schwab MD [address] [facility] [address] [place] [address] Internal Medicine-Rheumatology 12/11/16
[2025-05-07 17:14] LABS: Microscopic,Cath URINE MICROSCOPIC (MICROSCOPIC)
[2025-05-07 17:17] LABS: Appearance,Urine/Cath CLEAR (Clear); Bilirubin,Cath Negative (Negative); Blood, Urine/Cath TRACE-I (Negative); Color,Urine/Cath YELLOW (Yellow); Glucose,Urine/Cath (UA) Negative (Negative); Ketones,Urine/Cath Negative (Negative); Leukocyte Esterase,Cath Negative (Negative); Nitrate,Cath Negative (Negative); PH,Urine/Cath 6.0 (5.0-8.5); Protein,Urine/Cath Negative (Negative); Specific Gravity, Urine/Cath 1.010 (1.005-1.030); Urobilinogen,Cath 0.2 EU/dl (0.2)
[2025-05-07 17:32] LABS: RBC,Urine/Cath Occasional # /hpf (0-3); Transitional Epi Cells,Ur/Cath OCC #/lpf (0-3)
[2025-05-07 17:33] LABS: Bacteria,Urine/Cath 1+ /lpf; Renal Epithelial Cells,Ur/Cath Occasional #/lpf (0)
== END 2025-05-07 23:59 | disposition home or self-care (01) ==
LOC: LAB.DROPOF 17:08
PROVIDERS: PCP Internal Medicine Adolescent Medicine; Visit Provider Internal Medicine Adolescent Medicine
DX: N39.0 Urinary tract infection, site not specified (principal); E11.9 Type 2 diabetes mellitus without complications
CPT/HCPCS: 81001

== ENCOUNTER 2025-05-18 13:49 | Outpatient (CLI) | payer MEDICARE, SELFPAY ==
--- NOTE | 2025-05-18 13:51 | US_ITS ---
FINAL REPORT TECHNIQUE: Sonographic images of the kidneys and retroperitoneum were obtained in the longitudinal and transverse planes. CLINICAL HISTORY: ELEVATED SERUM CREATININE FINDINGS: The right kidney measures 9.6 cm in [id number] length. No hydronephrosis or mass. No convincing stones. Cortical echogenicity and thickness are normal. The left kidney measures 8.8 cm in [id number] length. No hydronephrosis, mass, or stone. Cortical echogenicity and thickness are normal. Limited evaluation of the spleen and liver demonstrate no acute abnormality. IMPRESSION: Morphologically normal kidneys bilaterally. Reviewed, Interpreted and Dictated by Pretty Kimball MD Transcribed by Ayesha Griffith Authenticated and [facility]
== END 2025-05-18 23:59 | disposition home or self-care (01) ==
LOC: RAD 13:50
PROVIDERS: PCP Internal Medicine Adolescent Medicine; Visit Provider Nurse Practitioner Family
DX: R79.89 Other specified abnormal findings of blood chemistry (principal)
CPT/HCPCS: 76770